=== PATIENT | female | born 1935 | race Caucasian/White ===

== ENCOUNTER → 2016-08-22 | Outpatient (CLI) | payer MEDICARE ==
[~2016-08-22] MED LIST: AC325T PO; ALPR.5T; ALPR0.2550 PO; AMOX-355 PO; APIX2.5T; ASPI-480 PO; ASPI-86 PO; BIMA2.5D4 OS; BRIM5DRO OS; CALC-80 PO; CALC600T; CLD600T PO; DABI75CA3 PO; DENO60DI SQ; DICY10CA12 PO; DIGO0.25 PO; DIGO125T PO; DILT120C85 PO; DILT180C PO; DLT90CCR PO; LEVO100T46 PO; LEVO75TA58 PO; LISI1TAB10; LISI1TAB10 PO; LISI40TA PO; LOPE2CAP PO; LSNP10T PO; LVT.05T PO; MAGN400C PO; METH454P PO; MULT-608 PO; NF-METANX PO; NITR-65 PO; OFLO5DRO2 OD; OMEP20CA6 PO; PNT40TEC PO; POLY17PO23 PO; POTA99TA7 PO; PRED5DRO2I OD; PROBIOTIC1 EACH PO; RT-ALBUTEROL SULF 2.5 MG/3 ML PRE-MIX VIAL INH ONE; SOLI10TA4 PO; TIMO1DRO4 OS; WARF5TAB PO; WRF2T PO; flagyl
--- OUTSIDE RECORDS SUMMARY | 2016-08-22 12:06 | XMS REPORT | Continuity of Care Document ---
Author Author [facility] Organization [facility] Address Unknown Phone Unavailable Care Team Providers Care Automatic Door Mechanic Name Role Phone Wally Bahena PCP [phone] Source Comments Some departments are not documenting in the electronic medical record. If you do not see the information that you expected, contact Release of Information in the Health Information Management department at [phone] for further assistance in locating additional records.[facility] Active Allergies and Adverse Reactions Allergen Noted Date Severity Reactions Comments Neomycin 10/30/2015 Medium HIVES Nystatin 10/30/2015 Medium HIVES Current Medications Prescription Sig. Disp. Refills Start End Date Status Date ALPRAZolam (XANAX) 0.25 Take 0.25 mg by mouth at Active mg tablet bedtime as needed. amLODIPine (NORVASC) 5 mg Take 5 mg by mouth daily. Active tablet BRIMONIDINE Place into or around Active TARTRATE/TIMOLOL eye(s). (COMBIGAN OP) sucralfate (CARAFATE) 1 Take 1 g by mouth every 6 Active gram tablet hours. digoxin (LANOXIN) 125 mcg Take 125 mcg by mouth Active tablet daily. apixaban (ELIQUIS) 5 mg Take 5 mg by mouth twice Active tab tablet daily. estrogens, conjugated Take 0.625 mg by mouth Active (PREMARIN) 0.625 mg daily. tablet LEVOTHYROXINE SODIUM Take 88 mcg by mouth. Active (LEVOTHYROXINE PO) ESCITALOPRAM OXALATE Take 5 mg by mouth. Active (LEXAPRO PO) lisinopril (PRINIVIL; Take 20 mg by mouth Active ZESTRIL) 20 mg tablet daily. loteprednol(+) (LOTEMAX) 1 Drop four times daily. Active 0.5 % ophthalmic suspension metoprolol (LOPRESSOR) 50 Take 50 mg by mouth twice Active mg tablet daily. pantoprazole DR Take 40 mg by mouth Active (PROTONIX) 40 mg tablet daily. pramipexole (MIRAPEX) Take 0.125 mg by mouth Active 0.125 mg tablet three times daily. solifenacin(+) (VESICARE) Take 10 mg by mouth Active 10 mg tablet daily. [id number] Take by mouth. Active (BEANO PO) LACTOSE-REDUCED FOOD Take by mouth. Active (ENSURE ACTIVE PROTEIN-MUSCLE PO) other medication 1 Dose. Indications: 2 Active tabs before meals polyethylene glycol 3350 Take 17 g by mouth daily. Active (GLYCOLAX; MIRALAX) 17 gram/dose powder vitamins, multi stress Take 1 Tab by mouth Active formula (STRESS 600) tab daily. FLAXSEED OIL (OMEGA 3 PO) Take by mouth twice Active daily. Lactobacillus rhamnosus Take by mouth twice Active GG (LACTOBACILLUS daily with meals. RHAMNOSUS (GG)) 15 billion cell cpSP cholecalciferol (VITAMIN Take 1,000 Units by mouth Active D-3) 1,000 units tablet daily. FEXOFENADINE HCL (FLAKITO Take by mouth. Active PO) GUAIFENESIN (MUCINEX PO) Take by mouth. Active ciprofloxacin (CIPRO) 500 Take 1 Tab by mouth twice 2 Tab 0 08/19/19 Active mg tablet daily. 17 ciprofloxacin HCl (CIPRO) Take 1 Tab by mouth twice 2 Tab 0 02/12/20 08/19/19 Discontin 500 mg tablet daily. 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 Avalos ([facility]) 07/25 for low grade Ta dz found on workup for gross hematuria Most Recent Encounters Date Type Specialty Providers Description 08/19/2016 Procedure visit Urology Robert Longoria, Ureteral cancer, left MD (Primary Dx) Social History Tobacco Use Types Packs/Day Years Used Date Never Smoker Alcohol Use Drinks/Week oz/Week Comments No 0 Standard 0.0 drinks or equivalent Last Filed Vital Signs Vital Sign Reading Time Taken Blood Pressure 119/59 08/19/2016 1:11 PM PARTS ADMINISTRATOR Pulse 82 08/19/2016 1:11 PM PARTS ADMINISTRATOR Temperature - - Respiratory Rate - - Height 1.549 m (5' 1") 08/19/2016 1:11 PM PARTS ADMINISTRATOR Weight 52.073 kg (114 lb 12.8 08/19/2016 1:11 PM PARTS ADMINISTRATOR oz) Body Mass Index 21.7 08/19/2016 1:11 PM PARTS ADMINISTRATOR Oxygen Saturation - - Plan of Care Date Type Specialty Providers Description 02/03/2017 Appointment Urology Robert Longoria MD [address] [facility] [address] [place] [address] [phone] (Fax) Health Maintenance Due Date Last Done Comments Physical (Comprehensive) 01/06/1942 Exam Pertussis Vaccine 01[birth year]06/1946 Tetanus Vaccine 1950 Shingles Vaccine 1993 Osteoporosis Screening 1998 Prevnar/Pneumovax (#1) 1998 Influenza Vaccine 03/10/2016 Procedures from Last 3 Months Procedure Name Priority Date/Time Associated Diagnosis Comments VT CYSTOURETHROSCOPY Routine 08/21/2016 Ureteral cancer, left Results for this 6:56 PM PARTS ADMINISTRATOR procedure are in the results section. Results from Last 3 Months CYSTOSCOPY (08/21/2016 6:56 PM) Narrative Robert Longoria MD 08/21/20166:56 PM Date : 08/21/2016 Surgeon: Robert Longoria MD, 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 The patient was patient was placed in the lithotomy position. Two percent lidocaine jelly was administered into the urethral for local anesthesia. The genital area was prepped and draped in the normal sterile fashion. A flexible cystoscope was advanced into the patient's urethra and then into the bladder. The bladder was systematically examined and visualized in its entirety. The right ureteral orifice was surgically absent the left was normal in appearnce and location. No evidence of any tumors was seen. The scope was retroflexed and the anterior bladder and bladder neck inspected. Again, no evidence of any tumors was seen. The scope was then removed. The patient tolerated the procedure well. She was given antibiotics to cover the instrumentation. She was discharged from the clinic in stable condition.
--- NOTE | 2016-08-22 13:26 | Diagnostic Imaging Report ---
PROCEDURE: CT chest without contrast. TECHNIQUE: Multiple contiguous axial images were obtained through the chest without the use of intravenous contrast. INDICATION: Shortness of air, history of hypertension. CORRELATION STUDY: 11/30/2011 FINDINGS: There is asymmetric nodular density about the left breast. Mildly prominent but nonpathologic enlarged left axillary/retropectoral lymph node present. There are a few mildly prominent but nonpathologic enlarged scattered mediastinal lymph nodes. Calcified left hilar lymph nodes. Thoracic aortic contour unremarkable. Heart size normal. EG junction shows a very small hiatal hernia. Lung lopez again demonstrate a densely calcified granuloma in the lateral aspect of the left upper lobe. No infiltrate. 3 mm nodule in the right lower lobe just posterior to the fissure plane appearing stable. Visualized portion of the upper abdomen demonstrates calcified granuloma of the left lobe of the liver. Small low density area of the right lobe of the liver is stable. There is markedly dense calcification of the proximal abdominal aorta including its major branches. There is calcification about the left adrenal gland along its lateral limb. This appears changed from prior study, could be reflective of interval hemorrhage or infection. Kyphoplasty changes at L1. IMPRESSION: 1. Negative for acute findings of the chest. 2. Stable calcified granuloma of the left upper lobe with a noncalcified nodule of the right lower lobe. Given its relative stability of nearly five year timeframe, it favors benign process. Additional findings of granulomatous disease. 3. Slight nodularity suggested about the left breast parenchymal tissue. This may be normal variation. Nodule would be difficult to exclude by CT findings. Clinical correlation is recommended. It does appear that the patient had a recent relatively benign mammogram in May 2016. Dictated by: Dictated on workstation # [id number]
== END ==
LOC: RAD 12:02
PROVIDERS: ATTEND Internal Medicine Critical Care Medicine
DX: R06.00 Dyspnea, unspecified (principal); I10 Essential (primary) hypertension; I65.23 Occlusion and stenosis of bilateral carotid arteries; R00.1 Bradycardia, unspecified; I48.1 Persistent atrial fibrillation
CPT/HCPCS: 71250; 94060; 94640; 94726; 94729

== ENCOUNTER → 2016-09-26 | Outpatient (CLI) | payer MEDICARE ==
[~2016-09-26] MED LIST changes: -RT-ALBUTEROL SULF 2.5 MG/3 ML PRE-MIX VIAL INH ONE
--- OUTSIDE RECORDS SUMMARY | 2016-09-26 10:46 | XMS REPORT | Continuity of Care Document ---
Author Author [facility] Organization [facility] Address Unknown Phone Unavailable Care Team Providers Care Coal Wheeler Name Role Phone Wally Bahena PCP [phone] Source Comments Some departments are not documenting in the electronic medical record. If you do not see the information that you expected, contact Release of Information in the Health Information Management department at [phone] for further assistance in locating additional records.[facility] Active Allergies and Adverse Reactions Allergen Noted [...] by mouth Active 10 mg tablet daily. [id number] Take by mouth. Active (BEANO PO) LACTOSE-REDUCED [...] 0 08/19/19 Active mg tablet daily. 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 Avalos ([facility]) 07/25 for low grade Ta dz found on workup for gross hematuria Most Recent Encounters Date Type Specialty Providers Description 08/19/2016 Procedure visit Urology Robert Longoria, Ureteral cancer, left (Primary Dx) Social History Tobacco Use Types Packs/Day Years Used Date Never Smoker Alcohol Use Drinks/Week oz/Week Comments No 0 Standard 0.0 drinks or equivalent Last Filed Vital Signs Vital Sign Reading Time Taken Blood Pressure 119/59 08/19/2016 1:11 PM ED CASE MANAGER Pulse 82 08/19/2016 1:11 PM ED CASE MANAGER Temperature - - Respiratory Rate - - Height 1.549 m (5' 1") 08/19/2016 1:11 PM ED CASE MANAGER Weight 52.073 kg (114 lb 12.8 08/19/2016 1:11 PM ED CASE MANAGER oz) Body Mass Index 21.7 08/19/2016 1:11 PM ED CASE MANAGER Oxygen Saturation - - Plan of Care Date Type Specialty Providers Description 02/03/2017 Appointment Urology Robert Longoria MD [address] [facility] [address] [place] [address] [phone] (Fax) Health Maintenance Due Date Last Done Comments Physical (Comprehensive) 01/06/1942 Exam Pertussis Vaccine 01/06/1944 Tetanus Vaccine 1950 Shingles Vaccine 1993 Osteoporosis Screening 1998 Prevnar/Pneumovax (#1) 1998 Influenza Vaccine 03/10/2016 Procedures from Last 3 Months Procedure Name Priority Date/Time Associated Diagnosis Comments AL CYSTOURETHROSCOPY Routine 08/21/2016 Ureteral cancer, left Results for this 6:56 PM ED CASE MANAGER procedure are in the results section. Results from Last 3 Months CYSTOSCOPY (08/21/2016 6:56 PM) Narrative Robert Longoria MD 08/21/20166:56 PM Date : 08/21/2016 Surgeon: Robert Longoria MD, FACS Preoperative Diagnosis: right ureteral cancer Postoperative Diagnosis: [...]
[2016-09-26 11:30] LABS: ALBUMIN 3.8 G/DL (3.2-4.5); BILIRUBIN,DIRECT 0.3 MG/DL (0.0-0.3); BILIRUBIN,INDIRECT 0.5 MG/DL; BILIRUBIN,TOTAL 0.8 MG/DL (0.1-1.0); TOTAL PROTEIN 6.7 G/DL (6.4-8.2)
== END ==
LOC: LAB 10:42
PROVIDERS: ATTEND Physician Assistant
DX: E78.2 Mixed hyperlipidemia (principal)
CPT/HCPCS: 36415; 80061; 80076

== ENCOUNTER → 2016-10-10 | Outpatient (CLI) | payer MEDICARE ==
[~2016-10-10] VITALS: Ht 154.9 cm; Wt 44.3 kg
[~2016-10-10] MED LIST changes: +DENOSUMAB 60 MG/1 ML (PROLIA) SQ ONE
[2016-10-10 13:30] VITALS: BP 124/57
== END ==
LOC: SDC 12:58
PROVIDERS: ATTEND Nurse Practitioner Family
DX: M81.0 Age-related osteoporosis without current pathological fracture (principal)
CPT/HCPCS: 96372

== ENCOUNTER 2016-10-24 18:38 | Emergency (ER) | payer OTHER, MEDICARE ==
[~2016-10-24] VITALS: Ht 154.9 cm; Wt 50.8 kg
[~2016-10-24 18:38] MED LIST changes: -AMOX-355 PO; -APIX2.5T; -DENOSUMAB 60 MG/1 ML (PROLIA) SQ ONE
[2016-10-24] MEDS ORDERED: APIX2.5T (18:51)
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
[2016-10-24 19:00] LABS: BASOPHILS % (AUTO) 0 % (0-10); EOSINOPHILS # (AUTO) 0.2 10^3/uL (0.0-0.3); EOSINOPHILS % (AUTO) 2 % (0-10); LYMPHOCYTES # (AUTO) 1.8 X 10^3 (1.0-4.0); LYMPHOCYTES % (AUTO) 23 % (12-44); MEAN CORPUSCULAR HEMOGLOBIN 31 PG (25-34); MEAN CORPUSCULAR HGB CONC 34 G/DL (32-36); MEAN CORPUSCULAR VOLUME 90 FL (80-99); MEAN PLATELET VOLUME 10.5 FL (7.4-10.4); MONOCYTES # (AUTO) 0.8 X 10^3 (0.0-1.0); MONOCYTES % (AUTO) 10 % (0-12); NEUTROPHILS # (AUTO) 5.2 X 10^3 (1.8-7.8); NEUTROPHILS % (AUTO) 65 % (42-75); PLATELET COUNT 210 10^3/uL (130-400); RED BLOOD COUNT 4.15 10^6/uL (4.35-5.85); RED CELL DISTRIBUTION WIDTH 14.1 % (10.0-14.5)
[2016-10-24 19:05] LABS: CHLORIDE 102 MMOL/L (98-107); POTASSIUM 4.6 MMOL/L (3.6-5.0); SODIUM 134 MMOL/L (135-145)
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
[2016-10-24 19:30] LABS: ALANINE AMINOTRANSFERASE 24 U/L (0-55); ANION GAP 14 MMOL/L (5-14); ASPARTATE AMINO TRANSFERASE 30 U/L (5-34); BILIRUBIN,TOTAL 0.5 MG/DL (0.1-1.0); BUN/CREATININE RATIO 18; CALCIUM 9.1 MG/DL (8.5-10.1); CARBON DIOXIDE 18 MMOL/L (21-32); GFR ESTIMATED 53; GLUCOSE 170 MG/DL (70-105); TOTAL PROTEIN 7.4 G/DL (6.4-8.2)
[2016-10-24 19:31] LABS: BLOOD UREA NITROGEN 18 MG/DL (7-18)
[2016-10-24 19:36] LABS: TROPONIN I < 0.30 NG/ML (<0.30)
[2016-10-24] MEDS ORDERED: CATHETER FLUSH 10 ML SYR IV PRN (19:45)
[2016-10-24] MEDS ORDERED: IOHEXOL 350 MG/ML 100 ML (OMNIPAQUE 350) VIAL IV ONE (19:45)
[2016-10-24] MEDS ORDERED: NS 100 ML (IVPB) BAG IV ONE (19:45)
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
[2016-10-24] MEDS ORDERED: NS IV 500 ML 500 ML IV SCH (20:30)
[2016-10-24] MEDS ORDERED: diphenhydrAMINE 50 MG/ML INJ (BENADRYL) INJ ONE (20:45)
[2016-10-24] MEDS ORDERED: AMOX-355 PO (21:13)
[2016-10-24] MEDS ORDERED: AUGMENTIN 500 MG TAB (AMOXICILLIN/CLAVULANATE) PO SCH (21:30)
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
[2016-10-24 22:13] VITALS: BP 146/88
== END 2016-10-24 22:13 | disposition home or self-care (01) ==
LOC: EDUNIT# 18:38 → ER 18:39
DX: S51.811A Laceration without foreign body of right forearm, initial encounter (principal); S29.9XXA Unspecified injury of thorax, initial encounter; S09.92XA Unspecified injury of nose, initial encounter; K57.30 Diverticulosis of large intestine without perforation or abscess without bleeding; J44.9 Chronic obstructive pulmonary disease, unspecified; I51.7 Cardiomegaly; Z79.01 Long term (current) use of anticoagulants; Z79.82 Long term (current) use of aspirin; Z79.899 Other long term (current) drug therapy; W22.11XA Striking against or struck by driver side automobile airbag, initial encounter; V43.52XA Car driver injured in collision with other type car in traffic accident, initial encounter; Y92.414 Local residential or business street as the place of occurrence of the external cause; Y99.8 Other external cause status
CPT/HCPCS: 36415; 70450; 71010; 71260; 72125; 73090; 74177; 80053; 84484; 85025; 93005; 96360; 96372

== ENCOUNTER 2016-11-04 12:44 | Emergency (ER) | payer OTHER, MEDICARE ==
[~2016-11-04] VITALS: Ht 162.6 cm; Wt 54.4 kg
[~2016-11-04 12:44] MED LIST changes: +AMOX-355 PO; +APIX2.5T
[2016-11-04 13:34] VITALS: BP 128/70
== END 2016-11-04 13:34 | disposition home or self-care (01) ==
LOC: EDUNIT# 12:44 → ER 12:47
DX: S51.812D Laceration without foreign body of left forearm, subsequent encounter (principal)

== ENCOUNTER → 2016-11-08 | Outpatient (CLI) | payer MEDICARE ==
--- NOTE | 2016-11-08 15:41 | Diagnostic Imaging Report ---
PROCEDURE: US Thyroid. TECHNIQUE: Multiple real-time grayscale images were obtained of the thyroid in various projections. Indication: Followup hypothyroidism. Comparison: 07/22/2011. Discussion: Atrophic appearing heterogenous thyroid gland is not significantly changed in overall appearance. The right thyroid measures 2.9 x 1.5 x 1.3 cm. Left thyroid measures 2.4 x 1.0 x 0.7 cm. No discrete nodule identified. No abnormal adjacent lymph nodes identified. Impression: 1. Atrophied heterogenous thyroid gland, stable. Dictated by: Dictated on workstation # [id number]
== END ==
LOC: RAD 15:05
PROVIDERS: ATTEND Family Medicine
DX: E03.9 Hypothyroidism, unspecified (principal)
CPT/HCPCS: 76536

== ENCOUNTER 2017-03-18 13:27 | Emergency (ER) | payer MEDICARE ==
[~2017-03-18] VITALS: Ht 154.9 cm; Wt 47.6 kg
--- OUTSIDE RECORDS SUMMARY | 2017-03-18 13:33 | XMS REPORT | Clinical Summary ---
Author Author [facility] Organization [facility] Address Unknown Phone Unavailable Care Team Providers Care Standard Machine Stitcher Name Role Phone PCP Unavailable Source Comments Some departments are not documenting in the electronic medical record. If you do not see the information that you expected, contact Release of Information in the Health Information Management department at [phone] for further assistance in locating additional records.[facility] Allergies Active Allergy Reactions Severity Noted Date Comments Neomycin HIVES Medium 10/30/2015 Nystatin HIVES Medium 10/30/2015 Current Medications Prescription Sig. Disp. Refills Start [...] mouth Active (PROTONIX) 40 mg tablet daily. solifenacin(+) (VESICARE) Take 10 mg by mouth Active 10 mg tablet daily. [id number] Take by mouth. Active (BEANO PO) LACTOSE-REDUCED FOOD Take by mouth. Active (ENSURE ACTIVE PROTEIN-MUSCLE PO) other 1 Dose. Indications: 2 Active medicationIndications: 2 tabs before meals tabs before meals polyethylene glycol 3350 Take [...] Overview: S/p left nephroureterectomy by Dr. 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 for gross hematuria Encounters Date Type Specialty Care Team Description 02/10/2017 Procedure visit Urology Robert Longoria, Ureteral cancer, unspecified laterality (Primary Dx) from Last 3 Months Family History Medical History Relation Name Comments Cancer Brother Cancer Father Heart Attack Father Heart Disease Father Cancer Mother Brain Tumor Sister Cancer Sister Relation Name Status Comments Brother Father Mother Sister Social History Tobacco Use Types Packs/Day Years Used Date Never Smoker Alcohol Use Drinks/Week oz/Week Comments No 0 Standard 0.0 drinks or equivalent Sex Assigned at Date Recorded Not on file Last Filed Vital Signs Vital Sign Reading Time Taken Blood Pressure 131/66 02/10/2017 4:08 PM CDT Pulse 85 02/10/2017 4:08 PM CDT Temperature - - Respiratory Rate - - Oxygen Saturation - - Inhaled Oxygen - - Concentration Weight 49.4 kg (109 lb) 02/10/2017 4:08 PM CDT Height 154.9 cm (5' 1") 02/10/2017 4:08 PM CDT Body Mass Index 20.6 02/10/2017 4:08 PM CDT Plan of Treatment Health Maintenance Due Date Last Done Comments PHYSICAL (COMPREHENSIVE) 01/06/1940 EXAM PERTUSSIS VACCINE 01/06/1944 TETANUS VACCINE 1950 SHINGLES VACCINE 1993 OSTEOPOROSIS SCREENING 1998 PREVNAR/PNEUMOVAX (#1) 1998 INFLUENZA VACCINE 03/10/2017 Procedures Procedure Name Priority Date/Time Associated Diagnosis Comments [place] CYSTOURETHROSCOPY Routine 02/12/2017 Ureteral cancer, Results for this 10:45 AM CDT unspecified laterality procedure are in the results section. 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 No evidence of any tumors was seen. The scope was retroflexed and the anterior bladder and bladder neck inspected. Again, no evidence of any tumors was seen. The scope was then removed. The patient tolerated the procedure well. She was given antibiotics to cover the instrumentation. She was discharged from the clinic in stable condition. from Last 3 Months
--- OUTSIDE RECORDS SUMMARY | 2017-03-18 13:33 | XMS REPORT | Encounter Summary ---
Author Author [facility] Organization [facility] Address Unknown Phone Unavailable Care Team Providers Care Kiln Furniture Saw Tender Name Role Phone PCP Unavailable Reason for Visit * Reason Comments Ureteral cancer * Outpatient Surgery (Routine) Status Reason Specialty Diagnoses / Referred By Referred To Procedures Contact Contact No Auth Needed Urology Diagnoses Swati Longoria, Malignant MD Robert Galvin MD neoplasm of left [address] ([address]) [address] [place] [address] [place] [address] [place] [address] rocedures [id number] Phone: [place] CYSTOURETHROSCOP [phone] Y Fax: PROCEDURE - 15 Encounter Details Date Type Department Care Team Description 02/10/2017 Procedure visit [facility] Robert Longoria , Ureteral cancer, Physicians - Urology MD unspecified laterality [address] (Primary Dx) [address] [place] [address] [place] [address] [place] [phone] [id number] [phone] Social History Tobacco Use Types Packs/Day Years Used Date Never Smoker Alcohol Use Drinks/Week oz/Week Comments No 0 Standard 0.0 drinks or equivalent Sex Assigned at Date Recorded Not on file as of this encounter Last Filed Vital Signs Vital Sign Reading [...] Mass Index 20.6 02/10/2017 4:08 PM CDT in this encounter Progress Notes * Robert Longoria MD - 02/10/2017 3:15 PM CDT Formatting of this note may be different from the original. Date of Service: 02/10/2017 Subjective: Elli Mark is a 82 y.o. female. 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 Here for a follow up cysto. She has not had any recurrences or disease in the bladder. Review of Systems Constitutional: Negative. All other systems reviewed and are negative. Objective: [id number] (BEANO PO) Take by mouth. ALPRAZolam (XANAX) 0.25 mg tablet Take 0.25 mg by mouth at bedtime as needed. amLODIPine (NORVASC) 5 mg tablet Take 5 mg by mouth daily. apixaban (ELIQUIS) 5 mg tab tablet Take 5 mg by mouth twice daily. BRIMONIDINE TARTRATE/TIMOLOL (COMBIGAN OP) Place into or around eye(s). cholecalciferol (VITAMIN D-3) 1,000 units tablet Take 1,000 Units by mouth daily. ciprofloxacin (CIPRO) 500 mg tablet Take 1 Tab by mouth twice daily. digoxin (LANOXIN) 125 mcg tablet Take 125 mcg by mouth daily. ESCITALOPRAM OXALATE (LEXAPRO PO) Take 5 mg by mouth. estrogens, conjugated (PREMARIN) 0.625 mg tablet Take 0.625 mg by mouth daily. FEXOFENADINE HCL (FLAKITO PO) Take by mouth. FLAXSEED OIL (OMEGA 3 PO) Take by mouth twice daily. GUAIFENESIN (MUCINEX PO) Take by mouth. Lactobacillus rhamnosus GG (LACTOBACILLUS RHAMNOSUS (GG)) 15 billion cell cpSP Take by mouth twice daily with meals. LACTOSE-REDUCED FOOD (ENSURE ACTIVE PROTEIN-MUSCLE PO) Take by mouth. LEVOTHYROXINE SODIUM (LEVOTHYROXINE PO) Take 88 mcg by mouth. lisinopril (PRINIVIL; ZESTRIL) 20 mg tablet Take 20 mg by mouth daily. loteprednol(+) (LOTEMAX) 0.5 % ophthalmic suspension 1 Drop four times daily. metoprolol (LOPRESSOR) 50 mg tablet Take 50 mg by mouth twice daily. other medication 1 Dose. Indications: 2 tabs before meals pantoprazole DR (PROTONIX) 40 mg tablet Take 40 mg by mouth daily. polyethylene glycol 3350 (GLYCOLAX; MIRALAX) 17 gram/dose powder Take 17 g by mouth daily. solifenacin(+) (VESICARE) 10 mg tablet Take 10 mg by mouth daily. sucralfate (CARAFATE) 1 gram tablet Take 1 g by mouth every 6 hours. vitamins, multi stress formula (STRESS 600) tab Take 1 Tab by mouth daily. Vitals: 02/10/17 1608 BP: 131/66 Pulse: 85 Weight: 49.4 kg (109 lb) Height: 154.9 cm (61") Body mass index is 20.6 kg/(m^2). Physical Exam Constitutional: She appears well-developed and well-nourished. No distress. Genitourinary: Vagina normal. Skin: She is not diaphoretic. Cysto negative Assessment and Plan: 1. Follow up 6 months for a repeat cysto. in this encounter Plan of Treatment Name Priority Associated Diagnoses Order Schedule CYTOLOGY URINES Routine Ureteral cancer, Ordered: 02/10/2017 unspecified laterality as of this encounter Procedures Procedure Name Priority Date/Time Associated Diagnosis Comments [place] CYSTOURETHROSCOPY Routine 02/12/2017 Ureteral cancer, Results for this 10:45 AM CDT unspecified laterality procedure are in the results section. in this encounter Results * CYSTOSCOPY (02/12/2017 10:45 AM) Specimen Performing Laboratory IN CLINIC Narrative Robert Longoria MD 02/12/2017 10:45 AM Date : 02/12/2017 Surgeon: Robert Longoria MD, [facility] Preoperative Diagnosis: right renal pelvic tumor Postoperative [...] discharged from the clinic in stable condition. in this encounter Visit Diagnoses Diagnosis Ureteral cancer, unspecified laterality - Primary in this encounter
--- NOTE | 2017-03-18 14:13 | ED Abdominal Pain ---
General Chief Complaint: Abdominal/GI Problems Stated Complaint: ABD PAIN Nursing Triage Note: PT AMBULATORY TO ROOM C/O UPPER ABD PAIN ONSET THIS 1030 MORNING. STATES SHE WAS PULLING ON A BOX WHEN ABD PAIN STARTED. Sepsis Screen: No Definite Risk Source of Information: Patient Exam Limitations: No Limitations History of Present Illness Time Seen By Provider: 14:09 Initial Comments 82-year-old female patient presents to the emergency department with complaints of upper abdominal pain beginning at 1030 today. Reports she was planning on a box when the pain began. Denies nausea, vomiting, diarrhea, shortness of air, chest pain, hematemesis. Pain worse with movement. Location Injury Occurred: home Timing/Duration: Constant, Other (1030 this AM) Severity/Quality: Aching, Other (spasm with movement) Location: [place], Other (rt sided abdominal pain.) Radiation: No Radiation Activities at Onset: Other (pulling on a box) Modifying Factors: Worsens With Movement Allergies and Home Medications Allergies Coded Allergies: Bacitracin Zinc (Verified Allergy, Unknown, 10/06/15) bacitracin (Verified Allergy, Unknown, 10/06/15) benzalkonium chloride (Verified Allergy, Unknown, 10/06/15) gramicidin D (Verified Allergy, Unknown, 10/06/15) hydrocortisone (Verified Allergy, Unknown, 10/06/15) lidocaine (Verified Allergy, Unknown, 10/06/15) meclizine (Verified Allergy, Unknown, 10/06/15) neomycin (Verified Allergy, Unknown, 10/06/15) neomycin sulfate (Verified Allergy, Unknown, 10/06/15) nystatin (Verified Allergy, Unknown, 10/06/15) polymyxin B (Verified Allergy, Unknown, 10/06/15) polymyxin B sulfate (Verified Allergy, Unknown, 10/06/15) triamcinolone acetonide (Unverified Allergy, Unknown, 03/13/12) Home Medications Acetaminophen 325 Mg Tablet, 650 MG PO Q4HRS PRN, (Reported) Amoxicillin/Potassium Clav 1 Each Tablet, 1 EACH PO BID, #10 Prescribed by: SUKHWINDER LEMUS on 10/24/16 2113 Apixaban 2.5 Mg Tablet, #170 (Reported) Aspirin 81 Mg Tablet.dr, 81 MG PO DAILY, #0 Prescribed by: TAMMY CRISOSTOMO on 07/21/14 1611 Brimonidine Tartrate/Timolol 5 Ml Drops, 1 DROP OS BID, #0 Prescribed by: TAMMY CRISOSTOMO on 07/21/14 161 Calcium Carbonate/Vitamin D3 1 Tab Tablet, 2 TAB PO Q12H, (Reported) Denosumab 60 Mg/1 Ml Disp.syrin, 60 MG SQ 2X YR, #0 Prescribed by: TAMMY CRISOSTOMO on 07/21/14 161 Dicyclomine Hcl 10 Mg Capsule, 2 TAB PO DAILY, (Reported) TAKE NEEDED FOR ABDOMINAL DISCOMFORT. Digoxin 125 Mcg Tablet, 125 MCG PO DAILY, (Reported) Diltiazem Hcl 120 Mg Capsule.sa, 2 EACH PO DAILY, #0 Prescribed by: TAMMY CRISOSTOMO on 07/21/141610 Levothyroxine Sodium 100 Mcg Tablet, 1 TAB PO HS, #30 Prescribed by: TAMMY CRISOSTOMO on 07/21/141610 Lisinopril 10 Mg Tab, 20 MG PO BID, (Reported) TAKE DAILY AT 9:00 DAILY. Magnesium Oxide 400 Mg Capsule, 400 MG PO DAILY, (Reported) TAKES WITH SUPPER Methylcellulose (With Sugar) 454 Gm Powder, 454 GM PO, (Reported) 1 SCOOP IN THE EVENING Multivitamins 1 Tab Tablet, 1 TAB PO DAILY, (Reported) TAKES WITH SUPPER Omeprazole 20 Mg Capsule.dr, 20 MG PO BID, (Reported) Ondansetron 8 Mg Tab.rapdis, 8 MG PO Q6H PRN for NAUSEA/VOMITING-1ST LINE, #10 Ref 0 Prescribed by: URBAN HODGES on 03/18/17 165 Polyethylene Glycol 17 Gm Pack, 0.5 PKT PO HS, #0 Prescribed by: TAMMY CRISOSTOMO on 07/21/141610 Prednisolone Acetate 5 Ml Btl, 1 DROP OD Q4H, #5 (Reported) Solifenacin Succinate 10 Mg Tablet, 10 MG PO HS PRN, (Reported) TAKES 1/2 TAB IN AM AND 1/2 IN PM Timolol Maleate/Pf 1 Each Droperette, 1 DROP OS DAILY, (Reported) Vitamin B Complex/Folic Ac 1 Ea Tablet, 1 EA PO DAILY, #0 Prescribed by: TAMMY CRISOSTOMO on 07/21/141610 Warfarin Sodium 5 Mg Tablet, 5 MG PO DAILY, #0 Prescribed by: TAMMY CRISOSTOMO on 1/12/15 1611 Review of Systems Constitutional: No chills, No diaphoresis, No dizziness, No fever, No malaise EENTM: No Symptoms Reported Respiratory: Denies Cough, Denies Shortness of Air, Denies SOA With Exertion Cardiovascular: Denies Chest Pain, Denies Lightheadedness, Denies Palpitations , Denies Syncope Gastrointestinal: See HPI, Denies Abdomen Distended, Abdominal Pain, Denies Blood Streaked Stools, Denies Constipated, Denies Diarrhea, Denies Nausea, Denies Poor Appetite, Denies Poor Fluid Intake, Denies Rectal Bleeding, Denies Vomiting Genitourinary: Denies Burning, Denies Frequency, Denies Flank Pain, Denies Hematuria, Denies Pain Musculoskeletal: No back pain, muscle pain, muscle cramps (muscle spasm rt abdomen.), No neck pain Skin: no symptoms reported Psychiatric/Neurological: No Symptoms Reported All Other Systems Reviewed Negative Unless Noted: Yes (Negative excepted noted.) Past [place]-Ulqixw-Tybich Hx Patient Social History Alcohol Use: Denies Use Recreational Drug Use: No Smoking Status: Never a Smoker Recent Foreign Travel: No Contact w/Someone Who Travel: No Recent Infectious Disease Expo: No Recent Hopitalizations: Yes (rotator cuff surgey, 2004, 2008 [place] glaucoma) Physical Abuse: No Sexual Abuse: No Immunizations Up To Date Date of Pneumonia Vaccine: Jul 11, 2014 Date of Influenza Vaccine: Apr 09, 2015 Surgeries History of Surgeries: Yes Respiratory History of Respiratory Disorde: No Cardiovascular History of Cardiac Disorders: Yes Neurological History of Neurological Disord: No Reproductive System Hx Reproductive Disorders: No Sexually Transmitted Disease: No Gastrointestinal History of Gastrointestinal Di: Yes Musculoskeletal History of Musculoskeletal Dis: Yes Endocrine History of Endocrine Disorders: Yes Psychosocial History of Psychiatric Problem: No Suicide Risk Score: 0 Reviewed Nursing Assessment Reviewed/Agree w Nursing PMH: Yes Family Medical History Significant Family History: No Pertinent Family Hx Physical Exam Vital Signs Capillary Refill : Less Than 3 Seconds General Appearance: WD/WN, no apparent distress HEENT: PERRL/EOMI, pharynx normal Neck: non-tender, full range of motion, supple, normal inspection Respiratory: chest non-tender, lungs clear, normal breath sounds, no respiratory distress, no accessory muscle use Cardiovascular: normal peripheral pulses, regular rate, rhythm, no edema, no murmur Peripheral Pulses: 2+ Dorsalis Pedis (R), 2+ Left Dors-Pedis (L), 2+ Radial Pulses (R), 2+ Radial Pulses (L) Gastrointestinal: normal bowel sounds, soft, no organomegaly, no pulsatile mass , No distended, No rebound, tenderness (rt sided abdominal pain noted over the oblique muscles with light palpation. No deep palpation tenderness noted of the abdomen.) Extremities: non-tender, normal inspection, no pedal edema, no calf tenderness , normal capillary refill, pelvis stable Back: normal inspection, no CVA tenderness, no vertebral tenderness Neurologic/Psychiatric: no motor/sensory deficits, alert, normal mood/affect, oriented x 3 Skin: normal color, warm/dry Laceration Repair : Suture Size: 5-0 Progress/Results/Core Measures Results/Orders Lab Results Laboratory Tests Test 03/18/17 14:45 03/18/17 15:10 Range/Units White Blood Count 10.1 4.3-11.0 10^3/uL Red Blood Count 4.17 L 4.35-5.85 10^6/uL Hemoglobin 13.0 11.5-16.0 G/DL Hematocrit 38 35-52 % Mean Corpuscular Volume 91 80-99 FL Mean Corpuscular Hemoglobin 31 25-34 PG Mean Corpuscular Hemoglobin Concent 34 32-36 G/DL Red Cell Distribution Width 13.2 10.0-14.5 % Platelet Count 213 130-400 10^3/uL Mean Platelet Volume 10.2 7.4-10.4 FL Neutrophils (%) (Auto) 73 42-75 % Lymphocytes (%) (Auto) 14 12-44 % Monocytes (%) (Auto) 11 0-12 % Eosinophils (%) (Auto) 2 0-10 % Basophils (%) (Auto) 0 0-10 % Neutrophils # (Auto) 7.4 1.8-7.8 X 10^3 Lymphocytes # (Auto) 1.5 1.0-4.0 X 10^3 Monocytes # (Auto) 1.1 H 0.0-1.0 X 10^3 Eosinophils # (Auto) 0.2 0.0-0.3 10^3/uL Basophils # (Auto) 0.0 0.0-0.1 10^3/uL Sodium Level 129 L 135-145 MMOL/L Potassium Level 4.6 3.6-5.0 MMOL/L Chloride Level 99 98-107 MMOL/L Carbon Dioxide Level 21 21-32 MMOL/L Anion Gap 9 5-14 MMOL/L Blood Urea Nitrogen 24 H 7-18 MG/DL Creatinine 0.91 0.60-1.30 MG/DL Estimat Glomerular Filtration Rate 59 BUN/Creatinine Ratio 26 Glucose Level 79 70-105 MG/DL Calcium Level 8.9 8.5-10.1 MG/DL Total Bilirubin 1.0 0.1-1.0 MG/DL Aspartate Amino Transf (AST/SGOT) 26 5-34 U/L Alanine Aminotransferase (ALT/SGPT) 24 0-55 U/L Alkaline Phosphatase 67 40-136 U/L C-Reactive Protein High Sensitivity 0.16 0.00-0.50 MG/DL Total Protein 7.3 6.4-8.2 GM/DL Albumin 3.9 3.2-4.5 GM/DL Lipase 25 8-78 U/L Urine Color YELLOW Urine Clarity SLIGHTLY CLOUDY Urine pH 6.5 5-9 Urine Specific [place] 1.010 L 1.016-1.022 Urine Protein NEGATIVE NEGATIVE Urine Glucose (UA) NEGATIVE NEGATIVE Urine Ketones NEGATIVE NEGATIVE Urine Nitrite NEGATIVE NEGATIVE Urine Bilirubin NEGATIVE NEGATIVE Urine Urobilinogen NORMAL NORMAL MG/DL Urine Leukocyte Esterase NEGATIVE NEGATIVE Urine RBC (Auto) NEGATIVE NEGATIVE Urine RBC NONE /HPF Urine WBC NONE /HPF Urine Squamous Epithelial Cells 10-25 H /HPF Urine Crystals NONE /LPF Urine Bacteria TRACE /HPF Urine Casts NONE /LPF Urine Mucus NEGATIVE /LPF Urine Culture Indicated NO My Orders Orders - URBAN HODGES Cbc With Automated Diff (03/18/17 14:33) Comprehensive Metabolic Panel (03/18/17 14:33) Hs C Reactive Protein (03/18/17 14:33) Lipase (03/18/17 14:33) Ua Culture If Indicated (03/18/17 14:33) Saline Lock/Iv-Start (03/18/17 14:33) Ct Abdomen/Pelvis W (03/18/17 14:33) Ns Iv 1000 Ml (Sodium Chloride 0.9%) (03/18/17 14:33) Iohexol Injection (Omnipaque 350 Mg/Ml 1 (03/18/17 15:00) Ns (Ivpb) (Sodium Chloride 0.9% Ivpb Bag (03/18/17 15:00) Pharmacy Communication (Pharmacy Communi (03/18/17 14:50) Medications Given in ED Vital Signs/I&O Blood Pressure Mean: 109 Diagnostic Imaging Diagonstic Imaging: CT Plain Films/CT/US/NM/MRI: abdomen, pelvis Comments FINDINGS: Lower chest: The lung bases are clear. No pericardial or pleural effusion. Stable cardiomegaly. Peritoneum: No free intraperitoneal air or fluid. Liver and biliary system: The liver is normal. Reflux of contrast material into the IVC suggests right heart dysfunction. Gallbladder is decompressed. No biliary duct dilatation. Spleen and Pancreas: Spleen is normal. The pancreas enhances normally without mass lesion or peripancreatic inflammatory changes. Adrenals: Bilateral adrenals are normal. tract: Left kidney is surgically absent. Right kidney enhances normally without mass, lesion or obstructive uropathy. Urinary bladder is distended without wall thickening. GI tract: Stomach is decompressed. Surgical changes in the right lower quadrant with potential enterocolonic anastomosis. Distal small bowel loops are fluid-filled. However, there is no evidence of obstruction. No pericolonic inflammatory changes. The appendix is likely surgically absent. Vasculature and Lymph nodes: Normal caliber aorta with moderate atherosclerotic plaquing. No abdominal or pelvic lymphadenopathy. Musculoskeletal: No concerning osseous lesion. IMPRESSION: 1. No bowel obstruction. Surgical changes from probable enterocolonic anastomosis or enteroenteric anastomosis in the right lower quadrant. The distal small bowel loops are fluid-filled but not dilated to indicate bowel obstruction. These findings could represent enteritis in the appropriate setting. 2. Cardiomegaly with suggestion of right heart dysfunction. 3. Left nephrectomy. Dictated by: Dictated on workstation # [id number] Reviewed: Reviewed by Me (radiology report reviewed by me) Departure Communication (Admissions) Progress Notes Laboratory and diagnostic findings discussed with the patient. Patient was noted to have a sodium of 129. Patient was given 1 L normal saline. Patient follow-up with her primary care provider is now patient. Plan for discharge to home. All return precautions were discussed with the patient as described in the discharge instructions of this report. Patient verbalizes understanding and agrees with the treatment plan. Impression Impression: Primary Impression: Abdominal pain Qualified Codes: R10.9 - Unspecified abdominal pain Additional Impression: Hyponatremia Disposition: HOME, SELF-CARE Condition: Improved Departure-Patient Inst. Decision time for Depature: 16:56 Referrals: JUNIOR BAHENA MD (PCP/Family) Primary Care Physician Patient Instructions: Acute Abdomen (Belly Pain), Adult (DC), Hyponatremia (DC) Add. Discharge Instructions: All discharge instructions reviewed with patient and/or family. Voiced understanding. Medications as instructed. Continue usual home medications. Follow-up with Dr. Bahena as an outpatient for recheck this week. Call Monday morning for appointment time. Return to the emergency department for worsened pain, abdominal swelling, fever, vomiting, diarrhea, rectal bleeding, inability to urinate, or any other concerns. Scripts Ondansetron (Ondansetron Odt) 8 Mg Tab.rapdis 8 MG PO Q6H Y for NAUSEA/VOMITING-1ST LINE, #10 TAB 0 Refills Prov: URBAN HODGES 03/18/17 URBAN HODGES Mar 18, 2017 14:13
[2017-03-18] MEDS ORDERED: NS IV 1000 ML 1,000 ML IV ONE (14:33)
[2017-03-18 14:54] LABS: BASOPHILS % (AUTO) 0 % (0-10); EOSINOPHILS # (AUTO) 0.2 10^3/uL (0.0-0.3); EOSINOPHILS % (AUTO) 2 % (0-10); LYMPHOCYTES # (AUTO) 1.5 X 10^3 (1.0-4.0); LYMPHOCYTES % (AUTO) 14 % (12-44); MEAN CORPUSCULAR HEMOGLOBIN 31 PG (25-34); MEAN CORPUSCULAR HGB CONC 34 G/DL (32-36); MEAN CORPUSCULAR VOLUME 91 FL (80-99); MEAN PLATELET VOLUME 10.2 FL (7.4-10.4); MONOCYTES # (AUTO) 1.1 X 10^3 (0.0-1.0); MONOCYTES % (AUTO) 11 % (0-12); NEUTROPHILS # (AUTO) 7.4 X 10^3 (1.8-7.8); NEUTROPHILS % (AUTO) 73 % (42-75); PLATELET COUNT 213 10^3/uL (130-400); RED BLOOD COUNT 4.17 10^6/uL (4.35-5.85); RED CELL DISTRIBUTION WIDTH 13.2 % (10.0-14.5); WHITE BLOOD COUNT 10.1 10^3/uL (4.3-11.0)
[2017-03-18] MEDS ORDERED: NS 100 ML (IVPB) BAG IV ONE (15:00)
[2017-03-18] MEDS ORDERED: IOHEXOL 350 MG/ML 100 ML (OMNIPAQUE 350) VIAL IV ONE (15:00)
[2017-03-18 15:15] LABS: ALBUMIN 3.9 GM/DL (3.2-4.5); CALCIUM 8.9 MG/DL (8.5-10.1); CREATININE SERUM 0.91 MG/DL (0.60-1.30); POTASSIUM 4.6 MMOL/L (3.6-5.0); TOTAL PROTEIN 7.3 GM/DL (6.4-8.2); hs C REACTIVE PROTEIN 0.16 MG/DL (0.00-0.50)
[2017-03-18 15:16] LABS: BILIRUBIN,URINE NEGATIVE (NEGATIVE); KETONES,URINE NEGATIVE (NEGATIVE); LEUKOCYTE ESTERASE ,URINE NEGATIVE (NEGATIVE); NITRITE,URINE NEGATIVE (NEGATIVE); PH,URINE 6.5 (5-9); PROTEIN,URINE NEGATIVE (NEGATIVE); UROBILINOGEN,URINE NORMAL (NORMAL)
--- NOTE | 2017-03-18 16:36 | Diagnostic Imaging Report ---
PROCEDURE: CT abdomen and pelvis with contrast. TECHNIQUE: Multiple contiguous axial images were obtained through the abdomen and pelvis after administration of intravenous contrast. INDICATION: Abdominal discomfort and right-sided tenderness. COMPARISON: CT abdomen and pelvis from 10/24/16. FINDINGS: Lower chest: The lung bases are clear. No pericardial or pleural effusion. Stable cardiomegaly. Peritoneum: No free intraperitoneal air or fluid. Liver and biliary system: The liver is normal. Reflux of contrast material into the IVC suggests right heart dysfunction. Gallbladder is decompressed. No biliary duct dilatation. Spleen and Pancreas: Spleen is normal. The pancreas enhances normally without mass lesion or peripancreatic inflammatory changes. Adrenals: Bilateral adrenals are normal. tract: Left kidney is surgically absent. Right kidney enhances normally without mass, lesion or obstructive uropathy. Urinary bladder is distended without wall thickening. GI tract: Stomach is decompressed. Surgical changes in the right lower quadrant with potential enterocolonic anastomosis. Distal small bowel loops are fluid-filled. However, there is no evidence of obstruction. No pericolonic inflammatory changes. The appendix is likely surgically absent. Vasculature and Lymph nodes: Normal caliber aorta with moderate atherosclerotic plaquing. No abdominal or pelvic lymphadenopathy. Musculoskeletal: No concerning osseous lesion. IMPRESSION: 1. No bowel obstruction. Surgical changes from probable enterocolonic anastomosis or enteroenteric anastomosis in the right lower quadrant. The distal small bowel loops are fluid-filled but not dilated to indicate bowel obstruction. These findings could represent enteritis in the appropriate setting. 2. Cardiomegaly with suggestion of right heart dysfunction. 3. Left nephrectomy. Dictated by: Dictated on workstation # [id number]
[2017-03-18] MEDS ORDERED: ONDA8TAB13 PO (16:57)
[2017-03-18 17:03] VITALS: BP 135/87
== END 2017-03-18 17:03 | disposition home or self-care (01) ==
LOC: EDUNIT# 13:27 → ER 13:29
DX: R10.10 Upper abdominal pain, unspecified (principal); E87.1 Hypo-osmolality and hyponatremia; Z79.82 Long term (current) use of aspirin; Z79.01 Long term (current) use of anticoagulants
CPT/HCPCS: 36415; 74177; 80053; 81000; 83690; 85025; 86141; 96360; 96361

== ENCOUNTER → 2017-04-11 | Outpatient (CLI) | payer MEDICARE ==
[~2017-04-11] VITALS: Ht 154.9 cm; Wt 47.9 kg
[~2017-04-11] MED LIST changes: +DENOSUMAB 60 MG/1 ML (PROLIA) SQ ONE; +ONDA8TAB13 PO
[2017-04-11 13:20] VITALS: BP 108/85
== END ==
LOC: SDC 13:14
PROVIDERS: ATTEND Nurse Practitioner Family
DX: M81.0 Age-related osteoporosis without current pathological fracture (principal)
CPT/HCPCS: 96372

== ENCOUNTER → 2017-06-05 | Outpatient (CLI) | payer MEDICARE ==
[~2017-06-05] MED LIST changes: -DENOSUMAB 60 MG/1 ML (PROLIA) SQ ONE
--- NOTE | 2017-06-07 18:47 | Diagnostic Imaging Report ---
Bilateral screening mammogram 2D views with tomosynthesis The current study was also evaluated with a Computer Aided Detection (CAD) system. Indication: Screening. No current complaints stated on the questionnaire. COMPARISON: 06/01/2016. FINDINGS: The breasts are composed of heterogeneously dense parenchyma which may decrease mammographic sensitivity. Multiple benign appearing vascular calcifications are seen in the breasts. No mass, architectural distortion or suspicious cluster of calcifications seen. Allowing for technique and positional differences, no suspicious change is seen. IMPRESSION: Dense breasts with no definite change. ACR BI-RADS Category 2: Benign findings. Result letter will be mailed to the patient. Note: At least 10% of breast cancer is not imaged by mammography. Dictated on workstation # [id number]
== END ==
LOC: RAD 14:45
PROVIDERS: ATTEND Family Medicine
DX: Z12.31 Encounter for screening mammogram for malignant neoplasm of breast (principal)
CPT/HCPCS: 77067

== ENCOUNTER → 2017-08-16 | Outpatient (CLI) | payer MEDICARE, OTHER | LOC: CARD 10:31 | PROVIDERS: ATTEND Internal Medicine Cardiovascular Disease | DX: I48.1 Persistent atrial fibrillation (principal); R00.1 Bradycardia, unspecified; I65.23 Occlusion and stenosis of bilateral carotid arteries; R06.00 Dyspnea, unspecified; I10 Essential (primary) hypertension | CPT/HCPCS: 93306 ==

== ENCOUNTER → 2017-09-28 | Outpatient (CLI) | payer MEDICARE ==
[2017-09-28 11:40] LABS: ALBUMIN 4.4 GM/DL (3.2-4.5); BILIRUBIN,TOTAL 1.2 MG/DL (0.1-1.0); CREATININE SERUM 0.89 MG/DL (0.60-1.30); POTASSIUM 4.4 MMOL/L (3.6-5.0); TOTAL PROTEIN 7.9 GM/DL (6.4-8.2)
== END ==
LOC: LAB 10:52
PROVIDERS: ATTEND Physician Assistant
DX: I10 Essential (primary) hypertension (principal); I48.91 Unspecified atrial fibrillation; E78.2 Mixed hyperlipidemia
CPT/HCPCS: 36415; 80053; 80061

== ENCOUNTER 2017-11-07 13:02 | Outpatient (RCR) | payer MEDICARE ==
[~2017-11-07] VITALS: Ht 154.9 cm; Wt 47.9 kg
[2017-11-07 13:45] VITALS: BP 145/91
[2017-11-07] MEDS ORDERED: DENOSUMAB 60 MG/1 ML (PROLIA) SQ SCH (13:45)
[2018-02-26] MEDS ORDERED: DOXY100T2 PO (12:31)
== END 2018-05-15 13:56 | disposition home or self-care (01) ==
LOC: SDC 13:02
PROVIDERS: ATTEND Nurse Practitioner Family
DX: M81.0 Age-related osteoporosis without current pathological fracture (principal)
CPT/HCPCS: 96372

== ENCOUNTER 2018-05-15 13:32 | Outpatient (CLI) | payer MEDICARE ==
[~2018-05-15] VITALS: Ht 154.9 cm; Wt 47.9 kg
[~2018-05-15 13:32] MED LIST changes: +DOXY100T2 PO
[2018-05-15] MEDS ORDERED: DENOSUMAB 60 MG/1 ML (PROLIA) SQ SCH (13:44)
[2018-05-15 13:50] VITALS: BP 129/87
== END 2018-05-15 14:06 | disposition home or self-care (01) ==
LOC: SDC 13:32
PROVIDERS: ATTEND Nurse Practitioner Family
DX: M81.0 Age-related osteoporosis without current pathological fracture (principal)
CPT/HCPCS: 96372

== ENCOUNTER → 2018-06-07 | Outpatient (CLI) | payer MEDICARE ==
--- NOTE | 2018-06-07 12:16 | Diagnostic Imaging Report ---
Indication: Routine screening. Comparison is made with prior mammogram from 06/05/2017 and 06/01/2016. 2-D and 3-D bilateral screening mammography was performed with CAD. Both breasts are heterogeneously dense, limiting the sensitivity of mammography. Benign-appearing parenchymal and vascular calcifications are noted bilaterally. The parenchymal pattern appears stable. No mass or malignant appearing microcalcifications are seen. The axillae are unremarkable. IMPRESSION: BI-RADS category 2 No mammographic features suspicious for malignancy are identified. ACR BI-RADS Category 2: Benign findings. Result letter will be mailed to the patient. Note: At least 10% of breast cancer is not imaged by mammography. Dictated by: Dictated on workstation # [id number]
== END ==
LOC: RAD 10:36
PROVIDERS: ATTEND Nurse Practitioner Family
DX: Z12.31 Encounter for screening mammogram for malignant neoplasm of breast (principal)
CPT/HCPCS: 77067

== ENCOUNTER → 2018-06-13 | Outpatient (CLI) | payer MEDICARE ==
[~2018-06-13] MED LIST changes: +IOHEXOL 350 MG/ML 100 ML (OMNIPAQUE 350) VIAL IV ONE; +NS 250 ML (IVPB) BAG IV ONE; +RECEIVED CONTRAST (Hold Metformin) IV SCH
[2018-06-13 12:58] LABS: BUN/CREATININE RATIO 21; CREATININE SERUM 0.86 MG/DL (0.60-1.30); GFR ESTIMATED > 60
--- NOTE | 2018-06-13 14:10 | Diagnostic Imaging Report ---
PROCEDURE: CT neck soft tissue with contrast. TECHNIQUE: Multiple contiguous axial images were obtained through the neck after the administration of contrast. INDICATION: Hoarseness and difficulty breathing. COMPARISON: No prior studies are available for comparison. FINDINGS: The visualized intracranial structures are unremarkable. Posterior nasopharynx and oropharynx are unremarkable. Parapharyngeal fat planes are preserved. The epiglottis and larynx are unremarkable. No thyroid mass is identified. The submandibular and parotid glands are unremarkable. No definite cervical lymphadenopathy is seen. Small lymph nodes in the left supraclavicular region are noted medially. A single lymph node measuring 0.9 x 0.7 cm. No pathologically enlarged nodes are identified. No fluid collections are detected. IMPRESSION: Unremarkable CT soft tissue neck study with contrast. No definite neck mass or lymphadenopathy is identified. Dictated by: Dictated on workstation # [id number]
== END ==
LOC: RAD 11:54
PROVIDERS: ATTEND Otolaryngology Otolaryngology/Facial Plastic Surgery
DX: J31.2 Chronic pharyngitis (principal); R49.0 Dysphonia
CPT/HCPCS: 36415; 70491; 82565; 84520

== ENCOUNTER → 2018-10-17 | Outpatient (CLI) | payer MEDICARE ==
[~2018-10-17] MED LIST changes: -IOHEXOL 350 MG/ML 100 ML (OMNIPAQUE 350) VIAL IV ONE; -NS 250 ML (IVPB) BAG IV ONE; -RECEIVED CONTRAST (Hold Metformin) IV SCH; +RT-ALBUTEROL SULF 2.5 MG/3 ML PRE-MIX VIAL INH ONE; +RT-ALBUTEROL SULF 2.5 MG/3 ML PRE-MIX VIAL ONE
--- NOTE | 2018-10-17 16:49 | Diagnostic Imaging Report ---
PROCEDURE: CT chest without contrast. TECHNIQUE: Multiple contiguous axial images were obtained through the chest without the use of intravenous contrast. Auto Exposure Controls were utilized during the CT exam to meet ALARA standards for radiation dose reduction. INDICATION: Followup lung nodule. COMPARISON: Exam compared with study 10/24/2016. FINDINGS: Benign calcified granuloma in the left upper lobe noted unchanged and incidental. No noncalcified or suspicious chest nodule. Enlargement of the heart is decreased from prior. There is no pleural or pericardial effusion is no pneumothorax. No acute chest wall pathology the aorta is nonaneurysmal. The upper abdomen where visualized appeared nonacute. IMPRESSION: Benign calcified granuloma in the left upper lobe. No suspicious nodule. No acute finding. Dictated by: Dictated on workstation # [id number]
== END ==
LOC: RAD 12:53
PROVIDERS: ATTEND Nurse Practitioner Family
DX: J84.10 Pulmonary fibrosis, unspecified (principal); R91.1 Solitary pulmonary nodule
CPT/HCPCS: 71250; 94060; 94726; 94729

== ENCOUNTER 2018-11-30 13:39 | Outpatient (CLI) | payer MEDICARE ==
[~2018-11-30] VITALS: Ht 154.9 cm; Wt 47.9 kg
[~2018-11-30 13:39] MED LIST changes: -RT-ALBUTEROL SULF 2.5 MG/3 ML PRE-MIX VIAL INH ONE; -RT-ALBUTEROL SULF 2.5 MG/3 ML PRE-MIX VIAL ONE
[2018-11-30] MEDS ORDERED: DENOSUMAB 60 MG/1 ML (PROLIA) SQ SCH (14:15)
[2018-11-30 14:20] VITALS: BP 125/59
== END 2018-11-30 14:20 | disposition home or self-care (01) ==
LOC: SDC 13:39
PROVIDERS: ATTEND Nurse Practitioner Family
DX: M81.0 Age-related osteoporosis without current pathological fracture (principal)
CPT/HCPCS: 96372

== ENCOUNTER 2018-12-10 12:35 | Inpatient (IN) | payer MEDICARE ==
[~2018-12-10] VITALS: Ht 154.9 cm; Wt 49.4 kg
[~2018-12-10 12:35] MED LIST changes: -APIX2.5T; +APIX2.5T PO
[2018-12-10] MEDS ORDERED: CATHETER FLUSH 10 ML SYR IV PRN (13:15)
[2018-12-10 13:18] LABS: HEMOGLOBIN 13.5 G/DL (11.5-16.0); MEAN PLATELET VOLUME 9.8 FL (7.4-10.4); RED CELL DISTRIBUTION WIDTH 12.8 % (10.0-14.5); WHITE BLOOD COUNT 10.4 10^3/uL (4.3-11.0)
[2018-12-10] MEDS: NS IV 1000 ML 1,000 ML IV SCH ×2 (13:25→22:37)
[2018-12-10 13:41] LABS: ALANINE AMINOTRANSFERASE 66 U/L (0-55); ALBUMIN 3.3 GM/DL (3.2-4.5); ALKALINE PHOSPHATASE 67 U/L (40-136); BILIRUBIN,TOTAL 0.5 MG/DL (0.1-1.0); BUN/CREATININE RATIO 22; CALCIUM 8.6 MG/DL (8.5-10.1); CARBON DIOXIDE 20 MMOL/L (21-32); CHLORIDE 93 MMOL/L (98-107); CREATININE SERUM 0.99 MG/DL (0.60-1.30); GFR ESTIMATED 53; GLUCOSE 93 MG/DL (70-105); MAGNESIUM 1.7 MG/DL (1.8-2.4); POTASSIUM 4.7 MMOL/L (3.6-5.0); TOTAL PROTEIN 6.8 GM/DL (6.4-8.2)
[2018-12-10 13:49] LABS: SODIUM 121 MMOL/L (135-145)
[2018-12-10 14:05] VITALS: BP 117/70
--- OUTSIDE RECORDS SUMMARY | 2018-12-10 14:45 | XMS REPORT | Clinical Summary ---
Author Author [facility] Organization [facility] Address Unknown Phone Unavailable Care Team Providers Care Athletic Coordinator Name Role Phone Robert Longoria MD Unavailable Karma Bahena MD PCP Source Comments Some departments are not documenting in the electronic medical record. If you d o not see the information that you expected, contact Release of Information in [facility] [employer] Information Management department at [phone] for further assistan ce in locating additional records.[facility] Allergies Comments Active Allergy Reactions Severity Noted Date Amoxicillin-Pot NAUSEA ONLY Low 12/13/2016 Clavulanate Neomycin HIVES Medium 10/30/2015 Nystatin HIVES Medium 10/30/2015 Medications End Date Status Medication Sig Dispensed Refills Start Date Active ALPRAZolam (XANAX) 0.25 Take 0.25 mg 0 mg tablet by mouth at bedtime as needed. Active BRIMONIDINE Place into 0 TARTRATE/TIMOLOL or around (COMBIGAN OP) eye(s). Active digoxin (LANOXIN) 125 mcg Take 125 mcg 0 tablet by mouth daily. Active apixaban (ELIQUIS) 5 mg Take 5 mg by 0 tab tablet mouth twice daily. Active estrogens, conjugated Take 0.625 mg 0 (PREMARIN) 0.625 mg by mouth tablet daily. Active LEVOTHYROXINE SODIUM Take 88 mcg 0 (LEVOTHYROXINE PO) by mouth. Active ESCITALOPRAM OXALATE Take 5 mg by 0 (LEXAPRO PO) mouth. Active loteprednol(+) (LOTEMAX) 1 Drop four 0 0.5 % ophthalmic times daily. suspension Active metoprolol (LOPRESSOR) 50 Take 50 mg by 0 mg tablet mouth twice daily. Active solifenacin(+) (VESICARE) Take 10 mg by 0 10 mg tablet mouth daily. Active [id number] Take by 0 (BEANO PO) mouth. Active other 1 Dose. 0 medicationIndications: 2 Indications: tabs before meals 2 tabs before meals Active polyethylene glycol 3350 Take 17 g by 0 (GLYCOLAX; MIRALAX) 17 mouth daily. gram/dose powder Active vitamins, multi stress Take 1 Tab by 0 formula (STRESS 600) tab mouth daily. Active FLAXSEED OIL (OMEGA 3 PO) Take by 0 mouth twice daily. Active Lactobacillus rhamnosus Take by 0 GG (LACTOBACILLUS mouth twice RHAMNOSUS (GG)) 15 daily with billion cell cpSP meals. Active cholecalciferol (VITAMIN Take 1,000 0 D-3) 1,000 units tablet Units by mouth daily. Active FEXOFENADINE HCL (FLAKITO Take by 0 PO) mouth. Active GUAIFENESIN (MUCINEX PO) Take by 0 mouth. Active ELIQUIS 2.5 mg tablet TK 1 T PO BID 5 8 Active atorvastatin calcium Take by 0 (LIPITOR PO) mouth. Active guaifenesin/pseudoephedrn Take by 0 e HCl (MUCINEX D PO) mouth. Active pantoprazole sodium Take by 0 (PANTOPRAZOLE PO) mouth. 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 Avalos @ [facility]. 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 L ast Assessment & Plan: Cystoscopy today revealed no evidence of urothelial tumors. Urine cytology -- pending. RTC 6 mo for cysto. Solitary kidney, acquired, right Overview: D/t (L) nephroureterectomy -- 2015. Family History Medical History Relation Name Comments Cancer Brother Cancer Father Heart Attack Father Heart Disease Father Cancer Mother Brain Tumor Sister Cancer Sister Relation Name Status Comments Brother Father Mother Sister Social History Date Tobacco Use Types Packs/Day Years Used Never Smoker Alcohol Use Drinks/Week oz/Week Comments No 0 Standard 0.0 drinks or equivalent Sex Assigned at Date Recorded Not on file Industry Job Start Date Occupation Not on file Not on file Not on file Travel End Travel History Travel Start No recent travel history available. Last Filed Vital Signs Time Taken Vital Sign Reading 09/07/2018 1:03 PM [employer] Blood Pressure 156/92 09/07/2018 1:03 PM [employer] Pulse 107 - Temperature - - Respiratory Rate - - Oxygen Saturation - - Inhaled Oxygen - Concentration 09/07/2018 1:03 PM [employer] Weight 47.6 kg (105 lb) 09/07/2018 1:03 PM [employer] Height 154.9 cm (5' 1") 09/07/2018 1:03 PM [employer] Body Mass Index 19.84 Plan of Treatment Health Maintenance Due Date Last Done Comments PHYSICAL (COMPREHENSIVE) 01/06/1942 EXAM DTAP/TDAP VACCINES (1 - 1951 Tdap) 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 For more information, tito briseno contact: [facility] [address] [place] [address]
--- OUTSIDE RECORDS SUMMARY | 2018-12-10 14:56 | XMS REPORT | CCD ---
Author Author Laura Colin Organization Karma Bahena MD, [facility] Address [address] [place] [address] Phone Care Team Providers Care Cartographic Technician Name Role Phone Karma Bahena PP Unavailable CCM Unavailable Summary Purpose Interface Exchange Insurance Providers Payer name Policy type / Coverage type Covered democrat ID Effective Begin Date Effective End Date WPS Medicare Part B Medicare Part B [id number] 2018 Unknown AARP Medicare Part B [id number] 2018 Unknown Family history Sister Diagnosis Age At Onset brain cancer Unknown Father Diagnosis Age At Onset Heart Attack Unknown Cancer Unknown Mother Diagnosis Age At Onset Cancer Unknown Asthma Unknown Sister Diagnosis Age At Onset Cancer Unknown Brother Diagnosis Age At Onset Cancer Unknown Social History Social History Element Codes Description Effective Dates Marital status Unknown 03/15/2011 Living arrangements Unknown House 03/15/[address]: 153015179 Never smoker 03/15/2011 Has the patient ever used illegal drugs? Unknown Has never used illegal drugs 03/15/2011 Allergies, Adverse Reactions, Alerts Substance Reaction Codes Entered Date Inactivated Date Status BACTINE RxNorm: 013414 03/04/2011 No Inactive Date Active MICONAZOLE RxNorm: 6932 03/04/2011 No Inactive Date Active NEOSPORIN RxNorm: 267620 03/04/2011 No Inactive Date Active NEOMYCIN RxNorm: 7299 03/04/2011 No Inactive Date Active CORTISPORIN RxNorm: 97631 03/04/2011 No Inactive Date Active bactrim RxNorm: 880459 03/13/2012 No Inactive Date Active AUGMENTIN diarrhea RxNorm: 922090 2016 No Inactive Date Active METRONIDAZOLE Unknown 03/04/2011 No Inactive Date Active NYSTATIN Unknown 03/04/2011 No Inactive Date Active PNEUMOCOCCAL VACCINE Unknown 03/04/2011 No Inactive Date Active Past Medical History Illness Codes Condition Status Onset Date Resolved Date Chronic atrial fibrillation ICD-9: 427.31 ICD-10: I48.2 Active 12/25/2013 Unknown Cough ICD-9: 786.2 ICD-10: R05 Active 11/23/2016 Unknown Acute laryngopharyngitis ICD-9: 465.0 ICD-10: J06.0 Active 11/21/2016 Unknown Atrophy of thyroid (acquired) ICD-9: 244.8 ICD-10: E03.4 Active 11/02/2016 Unknown Essential (primary) hypertension ICD-9: 401.1 ICD-10: I10 Active 01/19/2017 Unknown Postmenopausal atrophic vaginitis ICD-9: 627.3 ICD-10: N95.2 Active 10/31/2018 Unknown Pain in left hand ICD-9: 729.5 ICD-10: M79.642 Active 10/09/2018 Unknown Pain in right hand ICD- 9: 729.5 ICD-10: M79.641 Active 10/09/2018 Unknown Raynaud's syndrome without 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 Active 07/26/2018 Unknown Hypothyroidism, unspecified ICD-9: 244.9 ICD-10: E03.9 Active 08/31/2015 Unknown Other allergic rhinitis ICD-9: 477.8 ICD-10: J30.89 Active 10/12/2015 Unknown Pain in right toe(s) ICD- 9: 729.5 ICD-10: M79.674 Active 08/14/2018 Unknown Sebaceous cyst ICD-9: 706.2 ICD-10: L72.3 Active 07/26/2018 Unknown Encounter for screening mammogram for malignant neoplasm of breast ICD-9: V76.12 ICD-10: Z12.31 Active 05/12/2014 Unknown Gastro-esophageal reflux disease without esophagitis ICD-9: 530.81 ICD-10: K21.9 Active 06/04/2018 Unknown Essential (primary) hypertension ICD-9: 401.9 ICD-10: I10 Active 12/25/2013 Unknown Other termite helper (current) drug therapy ICD-9: V58.83 ICD-10: Z79.899 Active 01/31/2018 Unknown Encounter for general adult medical examination with abnormal findings ICD-9: V70.0 ICD-10: Z00.01 Active 01/23/2017 Unknown Allergic rhinitis due to pollen ICD-9: 477.0 ICD-10: J30.1 Active 12/20/2015 Unknown Age-related osteoporosis without current pathological fracture ICD-9: 733.00 ICD-10: M81.0 Active 07/11/2014 Unknown Encounter for immunization ICD-9: V04.81 ICD-10: Z23 Active 04/18/2012 Unknown Localized edema ICD-9: 782.3 ICD-10: R60.0 Active 06/09/2016 Unknown Dysphonia ICD-9: 784.42 ICD-10: R49.0 Active 01/19/2017 Unknown Acute upper respiratory infection, unspecified ICD-9: 465.9 ICD-10: J06.9 Active 12/20/2015 Unknown Laceration without foreign body of right forearm, subsequent encounter ICD-9: V58.89 ICD-10: S51.811D Active 11/08/2016 Unknown Laceration without foreign body of right forearm, initial encounter ICD-9: 881.00 ICD-10: S51.811A Active 10/27/2016 Unknown Abdominal distension (gaseous) ICD-9: 787.3 ICD-10: R14.0 Active 03/22/2015 Unknown Irritable bowel syndrome without diarrhea ICD-9: 564.1 ICD-10: K58.9 Active 01/14/2014 Unknown Pruritus ani ICD-9: 698.0 ICD-10: L29.0 Active 05/24/2016 Unknown First degree hemorrhoids ICD-9: 455.6 ICD-10: K64.0 Active 03/23/2016 Unknown Epidermal cyst ICD-9: 706.2 ICD-10: L72.0 Active 02/01/2016 Unknown Other mcc (current) drug therapy ICD-9: V58.69 ICD-10: Z79.899 Active 03/08/2012 Unknown Acute anal fissure ICD- 9: 565.0 ICD-10: K60.0 Active 01/04/2016 Unknown Impacted cerumen, right ear ICD-9: 389.8 ICD-10: H61.21 Active 10/18/2015 Unknown Urge incontinence ICD-9: 788.31 ICD-10: N39.41 Active 12/25/2013 Unknown Unspecified hemorrhoids ICD-9: 455.6 ICD-10: K64.9 Active 09/14/2015 Unknown 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 ICD-10: C65.2 Active 08/31/2015 Unknown Hematuria, unspecified ICD-9: 599.70 ICD-10: R31.9 Active 05/25/2015 Unknown Other specified noninflammatory disorders of vagina ICD-9: 625.8 ICD-10: N89.8 Active 05/25/2015 Unknown Other urethritis ICD-9: 597.80 ICD-10: N34.2 Active 05/25/2015 Unknown Gout, unspecified ICD-9: 274.9 ICD-10: M10.9 Active 05/20/2015 Unknown Dyspnea, unspecified ICD- 9: 786.09 ICD-10: R06.00 Active 12/25/2013 Unknown Encounter for immunization ICD-9: V03.82 ICD-10: Z23 Active 07/11/2014 Unknown Unspecified atrial fibrillation ICD-9: 427.31 ICD-10: I48.91 Active 12/25/2013 Unknown Cystocele, unspecified ICD-9: 618.01 ICD-10: N81.10 Active 05/08/2012 Unknown Fecal smearing ICD-9: 787.62 ICD-10: R15.1 Active 05/06/2015 Unknown Atrial fibrillation ICD- 9: 427.31 Active 12/25/2013 Unknown Bloating ICD-9: 787.3 Active 03/22/2015 Unknown ENCNTR LONG-ANTICOAG USE ICD-9: V58.61 Active 2012 Unknown Need for pneumococcal vaccine ICD-9: V03.82 Active 07/11/2014 Unknown Osteoarthritis ICD-9: 715.90 Active 07/11/2014 Unknown Osteoporosis ICD-9: 733.00 Active 07/11/2014 Unknown Dysuria ICD-9: 788.1 Active 05/14/2014 Unknown Other screening mammogram ICD-9: V76.12 Active 05/12/2014 Unknown UTI ICD-9: 599.0 Active 05/06/2014 Unknown ALLERGIC RHINITIS ICD-9: 477.9 Active 03/20/2014 Unknown ABDOM PAIN NOS SITE ICD- 9: 789.00 Active 01/29/2014 Unknown Esophageal reflux ICD-9: 530.81 Active 01/29/2014 Unknown DIARRHEA ICD-9: 787.91 Active 01/14/2014 Unknown Irritable bowel ICD-9: 564.1 Active 01/14/2014 Unknown Dyspnea ICD-9: 786.09 Active 12/25/2013 Unknown ESSENTIAL HYPERTENSION ICD-9: 401.9 Active 12/25/2013 Unknown MALAISE AND FATIGUE ICD- 9: 780.79 Active 12/25/2013 Unknown URGE INCONTINENCE ICD-9: 788.31 Active 12/25/2013 Unknown Osteoarthritis Unknown Active 09/12/2013 Unknown Bruising ICD-9: 924.9 Active 08/15/2013 Unknown Dizziness and giddiness ICD-9: 780.4 Active 04/23/2013 Unknown CELLULITIS OF HAND ICD- 9: 682.4 Active 12/11/2012 Unknown Elevated digoxin level ICD-9: 796.0 Active 10/30/2012 Unknown Inflammatory arthritis ICD-9: 714.9 Active 10/30/2012 Unknown URINARY FREQUENCY ICD-9: 788.41 Active 09/13/2012 Unknown Constipation - functional ICD-9: 564.09 Active 07/11/2012 Unknown Cystocele ICD-9: 618.01 Active 05/08/2012 Unknown Rectocele ICD-9: 618.04 Active 05/08/2012 Unknown 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 Active 04/18/2012 Unknown VACCIN FOR INFLUENZA ICD- 9: V04.81 Active 04/18/2012 Unknown Nausea and vomiting ICD- 9: 787.01 Active 03/13/2012 Unknown Encounter for long-term (current) use of other high-risk medications ICD-9: V58.69 Active 03/08/2012 Unknown Vaginal yeast infection ICD-9: 112.1 Active 02/13/2012 Unknown Anticoagulation goal of INR 2 to 3 ICD-9: V58.83 Active 02/01/2012 Unknown EDEMA ICD-9: 782.3 Active 10/03/2011 Unknown IMPACTED CERUMEN ICD-9: 380.4 Active 10/03/2011 Unknown Generalized osteoarthritis ICD-9: 715.09 Active 08/08/2011 Unknown Muscle cramp ICD-9: 729.82 Active 05/09/2011 Unknown Rash ICD-9: 782.1 Active 05/09/2011 Unknown Torticollis ICD-9: 723.5 Active 05/09/2011 Unknown Leg cramps, sleep related ICD-9: 327.52 Active 03/29/2011 Unknown Underweight ICD-9: 783.22 Active 03/29/2011 Unknown Broken radius Unknown Active 03/15/2011 Unknown broken ulna Unknown Active 03/15/2011 Unknown Broken wrist Unknown Active 03/15/2011 Unknown Fracture Unknown Active 03/15/2011 Unknown Gastroesophageal reflux disease Unknown Active 03/15/2011 Unknown Hypertension Unknown Active 03/15/2011 Unknown Hypothryroidism Unknown Active 03/15/2011 Unknown Osteoporosis Unknown Active 03/15/2011 Unknown Loss of weight ICD-9: 783.21 Active 03/15/2011 Unknown Palpitations ICD-9: 785.1 Active 03/15/2011 Unknown Peripheral neuropathy, idiopathic ICD-9: 356.9 Active 03/15/2011 Unknown Problems Condition Codes Effective Dates Condition Status Chronic atrial fibrillation ICD-9: 427.31 ICD-10: I48.2 12/25/2013 Active Cough ICD-9: 786.2 ICD-10: R05 11/23/2016 Active Acute laryngopharyngitis ICD-9: 465.0 ICD-10: J06.0 11/21/2016 Active Atrophy of thyroid (acquired) ICD-9: 244.8 ICD-10: E03.4 11/02/2016 Active Essential (primary) hypertension ICD-9: 401.1 ICD-10: I10 01/19/2017 Active Postmenopausal atrophic vaginitis ICD-9: 627.3 ICD-10: N95.2 10/31/2018 Active Pain in left hand ICD-9: 729.5 ICD-10: M79.642 10/09/2018 Active Pain in right hand ICD- 9: 729.5 ICD-10: M79.641 10/09/2018 Active Raynaud's syndrome without 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 07/26/2018 Active Hypothyroidism, unspecified ICD-9: 244.9 ICD-10: E03.9 08/31/2015 Active Other allergic rhinitis ICD-9: 477.8 ICD-10: J30.89 10/12/2015 Active Pain in right toe(s) ICD- 9: 729.5 ICD-10: M79.674 08/14/2018 Active Sebaceous cyst ICD-9: 706.2 ICD-10: L72.3 07/26/2018 Active Encounter for screening mammogram for malignant neoplasm of breast ICD-9: V76.12 ICD-10: Z12.31 05/12/2014 Active Gastro-esophageal reflux disease without esophagitis ICD-9: 530.81 ICD-10: K21.9 06/04/2018 Active Essential (primary) hypertension ICD-9: 401.9 ICD-10: I10 12/25/2013 Active Other termite helper (current) drug therapy ICD-9: V58.83 ICD-10: Z79.899 01/31/2018 Active Encounter for general adult medical examination with abnormal findings ICD-9: V70.0 ICD-10: Z00.01 01/23/2017 Active Allergic rhinitis due to pollen ICD-9: 477.0 ICD-10: J30.1 12/20/2015 Active Age-related osteoporosis without current pathological fracture ICD-9: 733.00 ICD-10: M81.0 07/11/2014 Active Encounter for immunization ICD-9: V04.81 ICD-10: Z23 04/18/2012 Active Localized edema ICD-9: 782.3 ICD-10: R60.0 06/09/2016 Active Dysphonia ICD-9: 784.42 ICD-10: R49.0 01/19/2017 Active Acute upper respiratory infection, unspecified ICD-9: 465.9 ICD-10: J06.9 12/20/2015 Active Laceration without foreign body of right forearm, subsequent encounter ICD-9: V58.89 ICD-10: S51.811D 11/08/2016 Active Laceration without foreign body of right forearm, initial encounter ICD-9: 881.00 ICD-10: S51.811A 10/27/2016 Active Abdominal distension (gaseous) ICD-9: 787.3 ICD-10: R14.0 03/22/2015 Active Irritable bowel syndrome without diarrhea ICD-9: 564.1 ICD-10: K58.9 01/14/2014 Active Pruritus ani ICD-9: 698.0 ICD-10: L29.0 05/24/2016 Active First degree hemorrhoids ICD-9: 455.6 ICD-10: K64.0 03/23/2016 Active Epidermal cyst ICD-9: 706.2 ICD-10: L72.0 02/01/2016 Active Other mcc (current) drug therapy ICD-9: V58.69 ICD-10: Z79.899 03/08/2012 Active Acute anal fissure ICD- 9: 565.0 ICD-10: K60.0 01/04/2016 Active Impacted cerumen, right ear ICD-9: 389.8 ICD-10: H61.21 10/18/2015 Active Urge incontinence ICD-9: 788.31 ICD-10: N39.41 12/25/2013 Active Unspecified hemorrhoids ICD-9: 455.6 ICD-10: K64.9 09/14/2015 Active 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 ICD-10: C65.2 08/31/2015 Active Hematuria, unspecified ICD-9: 599.70 ICD-10: R31.9 05/25/2015 Active Other specified noninflammatory disorders of vagina ICD-9: 625.8 ICD-10: N89.8 05/25/2015 Active Other urethritis ICD-9: 597.80 ICD-10: N34.2 05/25/2015 Active Gout, unspecified ICD-9: 274.9 ICD-10: M10.9 05/20/2015 Active Dyspnea, unspecified ICD- 9: 786.09 ICD-10: R06.00 12/25/2013 Active Encounter for immunization ICD-9: V03.82 ICD-10: Z23 07/11/2014 Active Unspecified atrial fibrillation ICD-9: 427.31 ICD-10: I48.91 12/25/2013 Active Cystocele, unspecified ICD-9: 618.01 ICD-10: N81.10 05/08/2012 Active Fecal smearing ICD-9: 787.62 ICD-10: R15.1 05/06/2015 Active Atrial fibrillation ICD- 9: 427.31 12/25/2013 Active Bloating ICD-9: 787.3 03/22/2015 Active ENCNTR LONG-ANTICOAG USE ICD-9: V58.61 2012 Active Need for pneumococcal vaccine ICD-9: V03.82 07/11/2014 Active Osteoarthritis ICD-9: 715.90 07/11/2014 Active Osteoporosis ICD-9: 733.00 07/11/2014 Active Dysuria ICD-9: 788.1 05/14/2014 Active Other screening mammogram ICD-9: V76.12 05/12/2014 Active UTI ICD-9: 599.0 05/06/2014 Active ALLERGIC RHINITIS ICD-9: 477.9 03/20/2014 Active ABDOM PAIN NOS SITE ICD- 9: 789.00 01/29/2014 Active Esophageal reflux ICD-9: 530.81 01/29/2014 Active DIARRHEA ICD-9: 787.91 01/14/2014 Active Irritable bowel ICD-9: 564.1 01/14/2014 Active Dyspnea ICD-9: 786.09 12/25/2013 Active ESSENTIAL HYPERTENSION ICD-9: 401.9 12/25/2013 Active MALAISE AND FATIGUE ICD- 9: 780.79 12/25/2013 Active URGE INCONTINENCE ICD-9: 788.31 12/25/2013 Active Osteoarthritis Unknown 09/12/2013 Active Bruising ICD-9: 924.9 08/15/2013 Active Dizziness and giddiness ICD-9: 780.4 04/23/2013 Active CELLULITIS OF HAND ICD- 9: 682.4 12/11/2012 Active Elevated digoxin level ICD-9: 796.0 10/30/2012 Active Inflammatory arthritis ICD-9: 714.9 10/30/2012 Active URINARY FREQUENCY ICD-9: 788.41 09/13/2012 Active Constipation - functional ICD-9: 564.09 07/11/2012 Active Cystocele ICD-9: 618.01 05/08/2012 Active Rectocele ICD-9: 618.04 05/08/2012 Active 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 04/18/2012 Active VACCIN FOR INFLUENZA ICD- 9: V04.81 04/18/2012 Active Nausea and vomiting ICD- 9: 787.01 03/13/2012 Active Encounter for long-term (current) use of other high-risk medications ICD-9: V58.69 03/08/2012 Active Vaginal yeast infection ICD-9: 112.1 02/13/2012 Active Anticoagulation goal of INR 2 to 3 ICD-9: V58.83 02/01/2012 Active EDEMA ICD-9: 782.3 10/03/2011 Active IMPACTED CERUMEN ICD-9: 380.4 10/03/2011 Active Generalized osteoarthritis ICD-9: 715.09 08/08/2011 Active Muscle cramp ICD-9: 729.82 05/09/2011 Active Rash ICD-9: 782.1 05/09/2011 Active Torticollis ICD-9: 723.5 05/09/2011 Active Leg cramps, sleep related ICD-9: 327.52 03/29/2011 Active Underweight ICD-9: 783.22 03/29/2011 Active Broken radius Unknown 03/15/2011 Active broken ulna Unknown 03/15/2011 Active Broken wrist Unknown 03/15/2011 Active Fracture Unknown 03/15/2011 Active Gastroesophageal reflux disease Unknown 03/15/2011 Active Hypertension Unknown 03/15/2011 Active Hypothryroidism Unknown 03/15/2011 Active Osteoporosis Unknown 03/15/2011 Active Loss of weight ICD-9: 783.21 03/15/2011 Active Palpitations ICD-9: 785.1 03/15/2011 Active Peripheral neuropathy, idiopathic ICD-9: 356.9 03/15/2011 Active Medications Medication Codes Instructions Start Date Stop Date Status Fill Instructions Keflex 500 mg capsule RxNorm: 256341 1 Capsule(s) PO TID 12/07/2018 12/13/2018 Active digoxin 125 mcg tablet RxNorm: 694824 Tablet(s) every other day 12/06/2018 11/30/2019 Active Keflex 500 mg capsule RxNorm: 010633 1 Capsule(s) PO TID 11/30/2018 12/06/2018 Inactive pantoprazole 40 mg tablet,delayed release RxNorm: 434980 1 TABLET(S) PO DAILY 11/29/2018 11/23/2019 Active amlodipine 5 mg tablet RxNorm: 514246 Tablet(s) 1/2 TABLET(S) PO DAILY MAY TAKE AN EXTRA 1/2 PILL AT THE END OF THE DAY IF BLOOD PRESSURE IS ELEVATED OVER 140 11/29/2018 05/27/2019 Active cyclobenzaprine 5 mg tablet RxNorm: 106553 1/2 Tablet(s) PO TID TABLET(S) 1/2 TABLET(S) PO Q8 NEEDED MUSCLE SPASMS 10/31/2018 04/28/2019 Active Imvexxy Starter Pack 4 mcg vaginal insert, dose pack RxNorm: 4759421 1 dose VAG BIW 10/31/2018 01/28/2019 Active Voltaren 1 % topical gel RxNorm: 232958 2 Gram(s) TOP QID on left shoulder and bilateral hands 10/17/2018 05/14/2019 Active PA APPROVED UNTIL JUL 09 2019 [id number] amlodipine 5 mg tablet RxNorm: 584500 1/2 TABLET(S) PO DAILY MAY TAKE AN EXTRA 1/2 PILL AT THE END OF THE DAY IF BLOOD PRESSURE IS ELEVATED OVER 140 10/15/2018 11/28/2018 Inactive Patient requests 90 days supply Voltaren 1 % topical gel RxNorm: 484687 2 Gram(s) TOP QID on left shoulder and bilateral hands 10/09/2018 10/16/2018 Inactive levothyroxine 75 mcg tablet RxNorm: 784609 1 Tablet(s) PO daily 09/19/2018 01/16/2019 Active Keflex 500 mg capsule RxNorm: 487107 1 Capsule(s) PO TID 09/12/2018 09/18/2018 Inactive spironolactone 25 mg tablet RxNorm: 389417 1 Tablet(s) PO BID 08/14/2018 11/06/2019 Active see new directions and quantity cyclobenzaprine 5 mg tablet RxNorm: 334556 Tablet(s) TABLET(S) 1/2 TABLET(S) PO Q8 NEEDED MUSCLE SPASMS 08/14/2018 10/30/2018 Inactive Nitro-Bid 2 % transdermal ointment RxNorm: 768457 1 dime size amount TD BID to fingers and toes 08/14/2018 09/12/2018 Inactive cyclobenzaprine 5 mg tablet RxNorm: 564464 TABLET(S) 1/2 TABLET(S) PO Q8 NEEDED MUSCLE SPASMS 08/06/2018 08/13/2018 Inactive amlodipine 5 mg tablet RxNorm: 497731 1/2 Tablet(s) PO daily may take an extra 1/2 pill at the end of the day if blood pressure is elevated over 140 07/26/2018 10/14/2018 Inactive cefdinir 300 mg capsule RxNorm: 618556 1 Capsule(s) PO BID 06/20/2018 06/26/2018 Inactive cefdinir 300 mg capsule RxNorm: 358740 1 Capsule(s) PO BID 06/20/2018 06/19/2018 Inactive metoprolol succinate ER 50 mg tablet,extended release 24 hr RxNorm: 449677 1.5 Tablet(s) daily 06/15/2018 03/11/2019 Active sucralfate 100 mg/mL oral suspension RxNorm: 330134 2 Teaspoon(s) PO TID as needed with reflux symptoms 06/04/2018 No Stop Date Active Vesicare 10 mg tablet RxNorm: 363222 1 TABLET(S) PO EVERY OTHER DAY 05/14/2018 01/08/2019 Active levothyroxine 50 mcg tablet RxNorm: 541028 1 TABLET(S) PO DAILY 04/30/2018 09/18/2018 Inactive Patient requests 90 days supply spironolactone 25 mg tablet RxNorm: 617682 1 Tablet(s) PO daily 03/14/2018 08/13/2018 Inactive levothyroxine 50 mcg tablet RxNorm: 859823 1 Tablet(s) PO daily 02/01/2018 04/29/2018 Inactive Eliquis 2.5 mg tablet RxNorm: 8000862 1 Tablet(s) PO BID 01/31/2018 02/20/2018 Inactive levothyroxine 50 mcg tablet RxNorm: 332081 1 Tablet(s) PO daily 01/31/2018 01/31/2018 Inactive Eliquis 2.5 mg tablet RxNorm: 0686572 TAKE 1 TABLET BY MOUTH TWICE DAILY 01/23/2018 07/21/2018 Inactive metoprolol succinate ER 50 mg tablet,extended release 24 hr RxNorm: 210827 1 TABLET(S) PO DAILY 01/23/2018 01/30/2018 Inactive metoprolol succinate ER 50 mg tablet,extended release 24 hr RxNorm: 925728 1.5 Tablet(s) daily 01/22/2018 06/14/2018 Inactive lisinopril 20 mg tablet RxNorm: 836707 1/2 Tablet(s) daily 01/19/2018 01/21/2018 Inactive Patient requests 90 days supply Singulair 10 mg tablet RxNorm: 919231 TAKE 1 TABLET BY MOUTH AT BEDTIME 01/18/2018 04/17/2018 Inactive Patient requests 90 days supply Singulair 10 mg tablet RxNorm: 863465 Tablet(s) PO 01/17/2018 01/17/2018 Inactive digoxin 125 mcg tablet RxNorm: 566247 1 TABLET(S) PO DAILY 01/03/2018 12/05/2018 Inactive Symbicort 160 mcg-4.5 mcg/actuation HFA aerosol inhaler RxNorm: 3194857 2 Puff(s) INH BID 12/14/2017 04/12/2018 Inactive please dispense an aerochamber for patient as well as her symbicort cyclobenzaprine 5 mg tablet RxNorm: 894377 Tablet(s) 1/2 TABLET(S) PO Q8 NEEDED MUSCLE SPASMS 12/14/2017 08/05/2018 Inactive pantoprazole 40 mg tablet,delayed release RxNorm: 401405 1 Tablet(s) PO daily 12/14/2017 11/28/2018 Inactive ProAir RespiClick 90 mcg/actuation breath activated RxNorm: 0412367 1-2 INH QID as needed shortness of breath 12/14/2017 07/11/2018 Inactive cyclobenzaprine 5 mg tablet RxNorm: 460675 1/2 TABLET(S) PO Q8 NEEDED MUSCLE SPASMS 12/08/2017 12/13/2017 Inactive betamethasone dipropionate 0.05 % topical ointment RxNorm: 341492 1 Application TOP TID use topically on the rectal tissue three times daily x 1 week then as needed 11/13/2017 No Stop Date Active Premarin 0.625 mg/gram vaginal cream RxNorm: 424618 1/2 GRAM(S) VAG TIW 11/13/2017 10/30/2018 Inactive cyclobenzaprine 5 mg tablet RxNorm: 640156 1/2 TABLET(S) PO Q8 NEEDED MUSCLE SPASMS 10/17/2017 12/07/2017 Inactive Vesicare 10 mg tablet RxNorm: 672883 1 Tablet(s) PO every other day 10/17/2017 04/14/2018 Inactive lisinopril 20 mg tablet RxNorm: 233514 1 TABLET(S) PO DAILY 10/02/2017 01/18/2018 Inactive Patient requests 90 days supply levothyroxine 75 mcg tablet RxNorm: 986330 1 TABLET(S) PO DAILY 09/25/2017 01/30/2018 Inactive spironolactone 25 mg tablet RxNorm: 979177 1 TABLET(S) PO DAILY 08/16/2017 03/13/2018 Inactive cyclobenzaprine 5 mg tablet RxNorm: 622648 1/2 TABLET(S) PO Q8 NEEDED MUSCLE SPASMS 08/16/2017 10/16/2017 Inactive Eliquis 2.5 mg tablet RxNorm: 4790020 TAKE 1 TABLET BY MOUTH TWICE DAILY 07/26/2017 01/21/2018 Inactive cyclobenzaprine 5 mg tablet RxNorm: 315734 1/2 Tablet(s) PO Q8 as needed muscle spasms 06/19/2017 08/15/2017 Inactive lisinopril 20 mg tablet RxNorm: 097895 1 TABLET(S) PO DAILY 06/12/2017 10/01/2017 Inactive metoprolol succinate ER 50 mg tablet,extended release 24 hr RxNorm: 770436 1 TABLET(S) PO DAILY 04/07/2017 01/01/2018 Inactive spironolactone 25 mg tablet RxNorm: 043840 1 Tablet(s) PO daily 03/27/2017 03/13/2018 Inactive acyclovir 800 mg tablet RxNorm: 587909 1 Tablet(s) PO TID 03/21/2017 03/30/2017 Inactive acyclovir 800 mg tablet RxNorm: 686416 1 Tablet(s) PO TID 03/21/2017 03/20/2017 Inactive levothyroxine 75 mcg tablet RxNorm: 980023 1 Tablet(s) PO daily 03/16/2017 09/11/2017 Inactive spironolactone 25 mg tablet RxNorm: 434692 1 TABLET(S) PO DAILY 02/09/2017 03/26/2017 Inactive lisinopril 20 mg tablet RxNorm: 903776 1 TABLET(S) PO DAILY 01/02/2017 05/31/2017 Inactive Zithromax Z-Claudio 250 mg tablet RxNorm: 373282 1 Tablet(s) PO UD 11/29/2016 12/03/2016 Inactive ZPACK Keflex 500 mg capsule RxNorm: 488672 1 Capsule(s) PO TID 11/23/2016 12/02/2016 Inactive guaifenesin 400 mg tablet RxNorm: 095937 1 Tablet(s) PO Q6 as needed 11/23/2016 11/27/2016 Inactive omeprazole 40 mg capsule,delayed release RxNorm: 987730 1 Capsule(s) PO QPM 11/02/2016 12/13/2017 Inactive digoxin 125 mcg tablet RxNorm: 266059 1 TABLET(S) PO DAILY 10/27/2016 07/23/2017 Inactive cyclobenzaprine 5 mg tablet RxNorm: 086126 1/2 Tablet(s) PO Q8 PRN 10/25/2016 06/18/2017 Inactive prn muscle spasms Augmentin 500 mg-125 mg tablet RxNorm: 198876 1 Tablet(s) PO BID 10/24/2016 11/02/2016 Inactive Lasix 20 mg tablet RxNorm: 032027 Tablet(s) PRN one to two times a week if needed 07/27/2016 No Stop Date Active Patient requests 90 days supply spironolactone 25 mg tablet RxNorm: 099867 1 Tablet(s) PO daily 07/27/2016 02/08/2017 Inactive Diflucan 150 mg tablet RxNorm: 473312 1 Tablet(s) PO daily 07/27/2016 08/02/2016 Inactive lisinopril 20 mg tablet RxNorm: 204206 1 Tablet(s) PO daily 07/12/2016 01/01/2017 Inactive Lasix 20 mg tablet RxNorm: 1 TABLET(S) PO EVERY OTHER DAY EVERY OTHER DAY 06/10/2016 07/26/2016 Inactive Patient requests 90 days supply potassium chloride ER 10 mEq capsule,extended release RxNorm: 360079 1 CAPSULE(S) PO EVERY OTHER DAY 06/10/2016 07/26/2016 Inactive Patient requests 90 days supply potassium chloride ER 10 mEq capsule,extended release RxNorm: 122035 1 Capsule(s) PO every other day 06/09/2016 06/09/2016 Inactive Lasix 20 mg tablet RxNorm: 221058 1 Tablet(s) PO every other day every other day 06/09/2016 06/09/2016 Inactive levothyroxine 88 mcg tablet RxNorm: 143825 1 Tablet(s) PO daily 05/11/2016 11/06/2016 Inactive Premarin 0.625 mg/gram vaginal cream RxNorm: 004405 1/2 Gram(s) VAG TIW 03/24/2016 03/18/2017 Inactive metoprolol succinate ER 50 mg tablet,extended release 24 hr RxNorm: 455763 1 Tablet(s) PO daily 03/24/2016 03/18/2017 Inactive pantoprazole 40 mg tablet,delayed release RxNorm: 714686 1 Tablet(s) PO daily 02/08/2016 11/01/2016 Inactive betamethasone dipropionate 0.05 % topical ointment RxNorm: 461978 1 Application TOP TID use topically on the rectal tissue three times daily x 1 week then as needed 02/02/2016 11/12/2017 Inactive pantoprazole 40 mg tablet,delayed release RxNorm: 305756 1 Tablet(s) PO daily 2016 02/07/2016 Inactive alprazolam 0.25 mg tablet RxNorm: 643911 1 Tablet(s) PO Q6 as needed 12/04/2015 No Stop Date Active Vesicare 10 mg tablet RxNorm: 961469 1 Tablet(s) PO every other day 11/03/2015 10/16/2017 Inactive alprazolam 0.25 mg tablet RxNorm: 117269 1 Tablet(s) PO Q6 as needed 11/03/2015 12/03/2015 Inactive Premarin 0.625 mg/gram vaginal cream RxNorm: 049132 1/2 Gram(s) VAG TIW 11/03/2015 03/23/2016 Inactive levothyroxine 88 mcg tablet RxNorm: 766253 1 Tablet(s) PO daily 11/03/2015 05/10/2016 Inactive Diflucan 150 mg tablet RxNorm: 940080 1 Tablet(s) PO daily 10/19/2015 10/25/2015 Inactive cetirizine 10 mg chewable tablet RxNorm: 0181887 1 Tablet(s) PO daily 10/13/2015 11/11/2015 Inactive cetirizine 10 mg capsule RxNorm: 7966701 1 Capsule(s) PO daily 10/13/2015 11/11/2015 Inactive Vesicare 10 mg tablet RxNorm: 274797 1/2 TABLET(S) PO BID 09/21/2015 11/02/2015 Inactive betamethasone dipropionate 0.05 % topical ointment RxNorm: 235896 1 Application TOP TID use topically on the rectal tissue three times daily x 1 week then as needed 09/15/2015 02/01/2016 Inactive lisinopril 20 mg tablet RxNorm: 304636 1 Tablet(s) PO daily 09/01/2015 07/11/2016 Inactive digoxin 125 mcg tablet RxNorm: 694573 1 Tablet(s) PO daily 09/01/2015 08/25/2016 Inactive Augmentin 500 mg-125 mg tablet RxNorm: 453971 1 Tablet(s) PO TID 05/26/2015 06/04/2015 Inactive Pyridium 200 mg tablet RxNorm: 4639186 1 Tablet(s) PO TID 05/26/2015 05/27/2015 Inactive levothyroxine 88 mcg tablet RxNorm: 197108 1 Tablet(s) PO daily except 1/2 pill on monday and 05/07/2015 11/02/2015 Inactive digoxin 125 mcg tablet RxNorm: 457573 1 Tablet(s) PO daily 05/07/2015 08/31/2015 Inactive lisinopril 20 mg tablet RxNorm: 279763 1 TABLET(S) PO BID 04/13/2015 09/01/2015 Inactive Coumadin 1 mg tablet RxNorm: 473871 1 TABLET(S) PO DAILY 03/31/2015 08/31/2015 Inactive Coumadin 2 mg tablet RxNorm: 894242 4MG IN AM AND 1MG AT NIGHT TABLET(S) PO DAILY DIRECTED. 03/31/2015 08/31/2015 Inactive levothyroxine 88 mcg tablet RxNorm: 276135 1 Tablet(s) PO daily 03/23/2015 05/06/2015 Inactive alprazolam 0.25 mg tablet RxNorm: 040337 Tablet(s) PO 03/23/2015 04/06/2015 Inactive levothyroxine 88 mcg tablet RxNorm: 137837 1 Tablet(s) PO daily 01/28/2015 03/22/2015 Inactive levothyroxine 88 mcg tablet RxNorm: 116843 1 Tablet(s) PO daily 01/28/2015 01/27/2015 Inactive diltiazem ER 120 mg capsule,extended release RxNorm: 960316 1 Capsule(s) PO BID patient would like 4 months at a time 01/06/2015 09/28/2015 Inactive digoxin 125 mcg tablet RxNorm: 862038 Tablet(s) 1 TABLET(S) PO DAILY 12/24/2014 12/23/2014 Inactive pt will be paying [employer] (On $4 list)Patient requests 90 days supply digoxin 125 mcg tablet RxNorm: 745194 Tablet(s) 1 TABLET(S) PO DAILY M W F Sat and 2 tabs on T TH 12/24/2014 05/06/2015 Inactive pt will be paying [employer] (On $4 list)Patient requests 90 days supply dicyclomine 20 mg tablet RxNorm: 149295 1 Tablet(s) PO daily 11/17/2014 08/31/2015 Inactive one ac dinner and up to tid prn levothyroxine 88 mcg tablet RxNorm: 628969 1 Tablet(s) PO daily 11/03/2014 01/27/2015 Inactive Premarin 0.625 mg/gram vaginal cream RxNorm: 140504 1 APPLICATION VAG 1 APPLICATOR PER VAGINA 3 TIMES PER WEEK 11/03/2014 07/30/2015 Inactive digoxin 125 mcg tablet RxNorm: 788004 1 TABLET(S) PO DAILY 09/29/2014 12/23/2014 Inactive pt will be paying [employer] (On $4 list)Patient requests 90 days supply digoxin 125 mcg tablet RxNorm: 565905 1 TABLET(S) PO DAILY 07/11/2014 04/06/2015 Inactive Vesicare 10 mg tablet RxNorm: 866527 1/2 Tablet(s) PO BID 05/20/2014 05/14/2015 Inactive Levaquin 500 mg tablet RxNorm: 217338 1 Tablet(s) PO daily 05/06/2014 05/08/2014 Inactive take probiotic BID while on ABT Levaquin 500 mg tablet RxNorm: 260826 1 Tablet(s) PO daily 05/02/2014 05/05/2014 Inactive take probiotic BID while on ABT diltiazem ER 120 mg capsule,extended release RxNorm: 756619 1 Capsule(s) PO BID patient would like 4 months at a time 04/29/2014 2015 Inactive Vesicare 10 mg tablet RxNorm: 473189 1/2 Tablet(s) PO BID 04/29/2014 05/19/2014 Inactive lisinopril 20 mg tablet RxNorm: 984092 1 Tablet(s) PO BID 03/20/2014 03/14/2015 Inactive diltiazem 90 mg tablet RxNorm: 412322 1/2 TABLET(S) PO QPM 03/04/2014 04/28/2014 Inactive also 180 q am diltiazem ER 120 mg capsule,extended release RxNorm: 601833 1 Capsule(s) PO daily patient would like 4 months at a time 01/29/2014 04/28/2014 Inactive Vesicare 10 mg tablet RxNorm: 412082 1 Tablet(s) PO QHS 01/14/2014 04/28/2014 Inactive Coumadin 2 mg tablet RxNorm: 093453 4mg in AM and 1mg at night Tablet(s) PO daily as directed. 12/25/2013 03/30/2015 Inactive Metanx 3 mg-35 mg-2 mg tablet RxNorm: 1 Tablet(s) PO daily 12/25/2013 11/02/2015 Inactive digoxin 125 mcg tablet RxNorm: 920797 1 Tablet(s) PO daily 12/25/2013 09/28/2014 Inactive pt will be paying [employer] (On $4 list) Coumadin 2 mg tablet RxNorm: 260859 7.5 wed 5mg other Tablet(s) PO as directed. 12/03/2013 12/24/2013 Inactive omeprazole 20 mg tablet,delayed release RxNorm: 110696 1 Tablet(s) PO BID 11/27/2013 04/28/2014 Inactive Coumadin 2 mg tablet RxNorm: 398062 5 mg daily Tablet(s) PO as directed. 11/26/2013 12/02/2013 Inactive 5 mg daily Xanax 0.25 mg tablet RxNorm: 234068 1 Tablet(s) PO Q6 PRN 11/11/2013 12/25/2013 Inactive alprazolam 0.25 mg tablet RxNorm: 293987 tablet oral 11/11/2013 03/22/2015 Inactive sucralfate 1 gram tablet RxNorm: 286351 1 Tablet(s) PO AC & HS 11/04/2013 11/03/2013 Inactive sucralfate 1 gram tablet RxNorm: 541132 1 Tablet(s) PO AC & HS 11/04/2013 01/02/2014 Inactive Synthroid 100 mcg tablet RxNorm: 544624 1 Tablet(s) PO daily 10/31/2013 10/25/2014 Inactive Synthroid 100 mcg tablet RxNorm: 620117 1 Tablet(s) PO daily 09/30/2013 10/29/2013 Inactive Vesicare 10 mg tablet RxNorm: 647849 1 Tablet(s) PO QHS 09/30/2013 01/13/2014 Inactive Lotemax 0.5 % eye ointment RxNorm: 1247878 ointment opht 09/06/2013 12/10/2013 Inactive levothyroxine 100 mcg tablet RxNorm: 839357 tablet oral 09/05/2013 11/02/2014 Inactive Synthroid 100 mcg tablet RxNorm: 690496 1 Tablet(s) PO daily 09/05/2013 09/29/2013 Inactive Prolia 60 mg/mL Sub-Q Syringe RxNorm: 406435 1 Milliliter(s) SQ 06/25/2013 11/02/2015 Inactive dicyclomine 20 mg tablet RxNorm: 883159 1 Tablet(s) PO daily 06/24/2013 06/18/2014 Inactive one ac dinner and up to tid prn omeprazole 20 mg tablet,delayed release RxNorm: 368413 1 Tablet(s) PO BID 06/24/2013 11/26/2013 Inactive Cipro 500 mg tablet RxNorm: 731757 1 Tablet(s) PO BID 06/20/2013 06/26/2013 Inactive diltiazem ER 120 mg capsule,extended release RxNorm: 097536 1 Capsule(s) PO daily patient would like 4 months at a time 06/03/2013 01/28/2014 Inactive Coumadin 2 mg tablet RxNorm: 520370 as directed Tablet(s) PO as directed. 05/29/2013 11/25/2013 Inactive 5 mg daily Synthroid 88 mcg tablet RxNorm: 107871 1 Tablet(s) PO daily 04/24/2013 04/23/2013 Inactive Synthroid 88 mcg tablet RxNorm: 234562 1 Tablet(s) PO daily 04/24/2013 07/28/2013 Inactive Premarin 0.625 mg/gram vaginal cream RxNorm: 030799 1 Application VAG 1 applicator per vagina 3 times per week 04/23/2013 04/17/2014 Inactive Influenza Virus Vaccine 0.5 mL RxNorm: IM 04/23/2013 04/23/2013 Inactive digoxin 125 mcg tablet RxNorm: 142773 1 Tablet(s) PO daily 02/20/2013 04/20/2013 Inactive pt will be paying [employer] (On $4 list) Digox 125 mcg tablet RxNorm: 1714513 tablet oral 02/13/2013 03/20/2014 Inactive digoxin 125 mcg tablet RxNorm: 509858 1 Tablet(s) PO daily 02/13/2013 02/19/2013 Inactive diltiazem 90 mg tablet RxNorm: 482141 1/2 Tablet(s) PO QPM 02/13/2013 02/07/2014 Inactive also 180 q am Levoxyl 75 mcg tablet RxNorm: 032129 1 Tablet(s) PO 01/16/2013 04/23/2013 Inactive Coumadin 2 mg tablet RxNorm: 851031 6mg daily except 3mg on wed and fri Tablet(s) PO 01/15/2013 05/28/2013 Inactive 5 mg daily Coumadin 2 mg tablet RxNorm: 565687 6mg daily Tablet(s) PO 12/21/2012 01/14/2013 Inactive 5 mg daily silver sulfadiazine 1 % Topical Cream RxNorm: 772603 TOP apply to affected area with each dressing change 12/19/2012 12/25/2013 Inactive cephalexin 500 mg tablet RxNorm: 418700 1 Tablet(s) PO TID 12/11/2012 12/17/2012 Inactive digoxin 125 mcg tablet RxNorm: 709080 1 Tablet(s) PO daily 10/30/2012 02/12/2013 Inactive digoxin 125 mcg tablet RxNorm: 234157 2 tab tue thurs one other days Tablet(s) PO daily 10/23/2012 10/29/2012 Inactive lisinopril 10 mg tablet RxNorm: 918811 1 Tablet(s) PO daily 10/17/2012 08/14/2013 Inactive Cipro 500 mg tablet RxNorm: 409280 1 Tablet(s) PO BID 09/13/2012 09/19/2012 Inactive Coumadin 1 mg tablet RxNorm: 165108 1 Tablet(s) PO daily 09/03/2012 09/02/2012 Inactive Coumadin 1 mg tablet RxNorm: 226724 1 Tablet(s) PO daily 09/03/2012 12/21/2012 Inactive Coumadin 2 mg tablet RxNorm: 999838 Tablet(s) PO 07/25/2012 12/20/2012 Inactive 5 mg daily digoxin 125 mcg tablet RxNorm: 061478 1 Tablet(s) PO daily 06/28/2012 10/22/2012 Inactive Coumadin 2 mg tablet RxNorm: 867543 Tablet(s) PO 06/27/2012 07/24/2012 Inactive 5mg daily except 4mg on monday Coumadin 2 mg tablet RxNorm: 366091 Tablet(s) PO 06/19/2012 06/26/2012 Inactive 5mg e wed thur sat sun4mg mond(has 2mg and 1 mg tab) digoxin 125 mcg tablet RxNorm: 362072 1 Tablet(s) PO daily 05/29/2012 06/27/2012 Inactive Coumadin 2 mg tablet RxNorm: 936447 Tablet(s) PO 05/15/2012 06/18/2012 Inactive 5mg tue thur sat sun4mg mond(has 2mg and 1 mg tab) Coumadin 2 mg tablet RxNorm: 539557 Tablet(s) PO 04/25/2012 05/14/2012 Inactive 5mg tue thru sat4mg mond sun(has 2mg and 1 mg tab) Metanx 3 mg-35 mg-2 mg tablet RxNorm: 1 Tablet(s) PO BID 04/18/2012 12/24/2013 Inactive dicyclomine 20 mg tablet RxNorm: 462926 1 Tablet(s) PO 04/18/2012 06/23/2013 Inactive one ac dinner and up to tid prn digoxin 125 mcg tablet RxNorm: 695567 Tablet(s) PO daily except .25 on Tuesdays and 04/09/2012 05/28/2012 Inactive omeprazole 20 mg tablet,delayed release RxNorm: 812428 1 Tablet(s) PO BID 04/09/2012 04/03/2013 Inactive digoxin 125 mcg tablet RxNorm: 704914 1 Tablet(s) PO UD daily except none on Tuesdays and 03/13/2012 04/08/2012 Inactive Premarin 0.625 mg/gram Vaginal Cream RxNorm: 566234 1 Application VAG 1 applicator per vagina 3 times per week 02/20/2012 02/13/2013 Inactive omeprazole 20 mg tablet,delayed release RxNorm: 198465 1 Tablet(s) PO BID 02/13/2012 04/08/2012 Inactive Vesicare 10 mg tablet RxNorm: 823684 1 Tablet(s) PO QHS 02/13/2012 02/06/2013 Inactive Diflucan 150 mg tablet RxNorm: 022154 1 Tablet(s) PO daily 02/13/2012 02/19/2012 Inactive omeprazole 20 mg tablet,delayed release RxNorm: 301622 1 Tablet(s) PO BID 01/06/2012 02/12/2012 Inactive Calcium 600 + D(3) 600 mg (1,500)-200 unit Tab RxNorm: 750613 2 Tablet(s) PO BID 01/06/2012 08/31/2015 Inactive diltiazem 90 mg tablet RxNorm: 211495 1/2 Tablet(s) PO QPM 12/26/2011 02/12/2013 Inactive also 180 q am diltiazem ER 180 mg Cap RxNorm: 920003 1 Capsule(s) PO QAM 12/26/2011 04/08/2012 Inactive 45mg q hs Flagyl 500 mg Tab RxNorm: 388904 1 Tablet(s) PO BID 12/14/2011 12/20/2011 Inactive dicyclomine 10 mg Cap RxNorm: 993536 1 Capsule(s) PO AC & HS 12/01/2011 12/25/2011 Inactive Levaquin 500 mg Tab RxNorm: 996750 1 Tablet(s) PO daily 11/23/2011 11/29/2011 Inactive Rocephin 500 mg Solution for Injection RxNorm: 3551639 Inj 11/23/2011 11/23/2011 Inactive acyclovir 400 mg Tab RxNorm: 083785 1 Tablet(s) PO QID 11/10/2011 11/19/2011 Inactive acyclovir 400 mg Tab RxNorm: 696687 1 Tablet(s) PO QID 11/10/2011 11/09/2011 Inactive lisinopril 20 mg Tab RxNorm: 130270 1 Tablet(s) PO daily 10/03/2011 11/27/2011 Inactive lisinopril 20 mg Tab RxNorm: 002203 1 Tablet(s) PO daily 08/08/2011 10/02/2011 Inactive Reclast 5 mg/100 mL IV RxNorm: 820073 Milliliter(s) IV Yearly 06/08/2011 01/16/[address] Hansen manages Rocephin 500 mg Solution for Injection RxNorm: 0940562 1 Milliliter(s) Inj 03/04/2011 08/08/2011 Inactive Ceftin 500 mg Tab RxNorm: 218828 1 Tablet(s) PO BID 03/04/2011 08/08/2011 Inactive Vitamin D3 1,000 unit tablet RxNorm: 446884 2 Tablet(s) PO daily No Start Date Active Stool Softener 100 mg tablet RxNorm: 8262727 2 Tablet(s) PO QHS No Start Date Active Beano tablet RxNorm: 2-3 Tablet(s) PO as needed No Start Date Active Probiotic Pearls 15 mg (1 billion cell) capsule,delayed release RxNorm: 1 Capsule(s) PO daily No Start Date Active Lipitor 10 mg tablet RxNorm: 950237 1 Tablet(s) PO daily No Start Date Active Miralax 17 gram oral powder packet RxNorm: 049501 1/2 packet PO QHS No Start Date Active multivitamin Tab RxNorm: 1 Tablet(s) PO daily No Start Date Active Tylenol Extra Strength 500 mg tablet RxNorm: 368100 2 Tablet(s) PO as needed No Start Date Active Combigan 0.2 %-0.5 % eye drops RxNorm: 490567 1 Drop(s) OPH BID No Start Date Active 1 drop twice daily left eye Lexapro 5 mg tablet RxNorm: 427221 1 Tablet(s) PO daily No Start Date Active Tatiana Allergy 180 mg tablet RxNorm: 975720 1 Tablet(s) PO daily No Start Date Active Lotemax 0.5 % eye drops,suspension RxNorm: 366657 1 Drop(s) OPH right eye BID No Start Date Active Levoxyl 50 mcg tablet RxNorm: 690340 1 Tablet(s) PO daily No Start Date 01/15/2013 Inactive lisinopril-hydrochlorothiazide 20 mg-25 mg Tab RxNorm: 860551 1 Tablet(s) PO daily No Start Date 08/07/2011 Inactive Metanx 3 mg-35 mg-2 mg tablet RxNorm: 1 Tablet(s) PO daily No Start Date 04/17/2012 Inactive diltiazem CD 120 mg capsule,extended release 24 hr RxNorm: 685760 1 Capsule(s) PO daily No Start Date 09/28/2015 Inactive lisinopril 20 mg tablet RxNorm: 525204 Tablet(s) PO No Start Date Active Lumigan 0.01 % Eye Drops RxNorm: 7079230 1 Drop(s) OPH daily Left eye No Start Date 12/10/2013 Inactive prednisolone acetate 1 % Eye Drops, Susp RxNorm: 8797618 1 Drop(s) OPH BID 1 drop right eye am and hs No Start Date 11/02/2015 Inactive Eliquis 5 mg tablet RxNorm: 9400534 1 Tablet(s) PO BID No Start Date 06/08/2016 Inactive potassium gluconate (bulk) Misc RxNorm: Miscellaneous No Start Date 12/25/2011 Inactive Calcium 600 + D(3) 600 mg (1,500)-200 unit Tab RxNorm: 263804 3 Tablet(s) PO daily No Start Date 2012 Inactive Zyrtec 10 mg tablet RxNorm: 8140268 1 Tablet(s) PO daily No Start Date 08/02/2016 Inactive Synthroid 100 mcg tablet RxNorm: 458200 1 Tablet(s) PO daily No Start Date 09/04/2013 Inactive metoprolol succinate ER 50 mg tablet,extended release 24 hr RxNorm: 946246 1 Tablet(s) PO daily No Start Date 03/23/2016 Inactive Carafate 100 mg/mL oral suspension RxNorm: 701149 2 Teaspoon(s) PO as needed with reflux symptoms No Start Date 06/03/2018 Inactive Metanx 3 mg-35 mg-2 mg tablet RxNorm: 1 Tablet(s) PO daily 2pm No Start Date 11/02/2015 Inactive Lexapro 5 mg tablet RxNorm: 409001 1 Tablet(s) PO daily No Start Date 08/18/2015 Inactive Iron (dried) oral RxNorm: 37695 oral No Start Date 11/02/2015 Inactive timolol 0.5 % Eye Drops RxNorm: 835605 1 Drop(s) OPH daily left eye No Start Date 12/18/2013 Inactive multivitamin Cap RxNorm: 1 Capsule(s) PO daily No Start Date 12/25/2011 Inactive dicyclomine 10 mg Cap RxNorm: 238246 2 Capsule(s) PO daily No Start Date 11/30/2011 Inactive silver sulfadiazine 1 % Topical Cream RxNorm: 539915 TOP apply to affected area with each dressing change No Start Date 12/18/2012 Inactive magnesium oxide 400 mg Tab RxNorm: 080238 1 Tablet(s) PO daily No Start Date 11/02/2015 Inactive Pradaxa 75 mg Cap RxNorm: 3377011 1 Capsule(s) PO BID No Start Date 04/09/2012 Inactive magnesium oxide 400 mg Tab RxNorm: 620016 2 Tablet(s) PO daily magnesium plus zinc No Start Date 12/25/2011 Inactive biotin 1000 mg RxNorm: 1 PO daily No Start Date 12/25/2011 Inactive Synthroid 50 mcg Tab RxNorm: 145125 Tablet(s) PO No Start Date 12/25/2011 Inactive diltiazem ER 180 mg Cap RxNorm: 236090 1 Capsule(s) PO daily No Start Date 12/25/2011 Inactive 1 D 3 1000 iu Oral RxNorm: Oral No Start Date 12/25/2011 Inactive Coumadin 2 mg tablet RxNorm: 599569 Tablet(s) PO No Start Date 04/24/2012 Inactive 5mg tue [id number] mon sat sun(has 2mg and 1 mg tab) dicyclomine 20 mg tablet RxNorm: 724402 Tablet(s) PO No Start Date 04/17/2012 Inactive one ac dinner and up to tid prn lactobacillus acidophilus tablet RxNorm: 1 Tablet(s) PO daily No Start Date 11/03/2015 Inactive Eliquis 2.5 mg tablet RxNorm: 4289730 1 Tablet(s) PO BID No Start Date 07/25/2017 Inactive Levoxyl 75 mcg Tab RxNorm: 295971 1 Tablet(s) PO daily No Start Date 10/02/2011 Inactive digoxin 125 mcg tablet RxNorm: 085994 1 Tablet(s) PO daily No Start Date 03/12/2012 Inactive pantoprazole 40 mg tablet,delayed release RxNorm: 124138 1 Tablet(s) PO BID No Start Date 01/04/2016 Inactive cyclobenzaprine 5 mg tablet RxNorm: 905917 1/2 Tablet(s) PO Q8 PRN No Start Date 10/24/2016 Inactive diltiazem 90 mg Tab RxNorm: 421225 1/2 Tablet(s) PO QPM No Start Date 12/25/2011 Inactive Mirapex 1 mg Tab RxNorm: 043755 1 Tablet(s) PO QHS No Start Date 12/25/2011 Inactive Xanax 0.25 mg tablet RxNorm: 676347 1 Tablet(s) PO Q6 PRN No Start Date 11/10/2013 Inactive Premarin 0.625 mg/gram Vaginal Cream RxNorm: 634455 1 Application VAG 1 applicator per vagina 3 times per week No Start Date 02/19/2012 Inactive Synthroid 75 mcg Tab RxNorm: 836385 1 Tablet(s) PO daily No Start Date 04/17/2012 Inactive lisinopril 40 mg Tab RxNorm: 195094 1 Tablet(s) PO daily No Start Date 12/25/2011 Inactive Glucosamine Chondroitin Complex Advanced [id number]-1.65mg Tab RxNorm: 2 Tablet(s) PO daily No Start Date 08/08/2011 Inactive famotidine 20 mg tablet RxNorm: 598085 1 Tablet(s) PO QAM No Start Date 11/02/2015 Inactive cranberry extract 250 mg Tab RxNorm: 116682 2 Tablet(s) PO daily No Start Date 08/08/2011 Inactive Vitamin D3 1,000 unit capsule RxNorm: 693628 1 Capsule(s) PO daily No Start Date 08/31/2015 Inactive aspirin 81 mg Tab, Delayed Release RxNorm: 376703 1 Tablet(s) PO daily No Start Date 08/31/2015 Inactive diltiazem ER 120 mg capsule,extended release RxNorm: 243031 1 Capsule(s) PO daily patient would like 4 months at a time No Start Date 06/02/2013 Inactive omeprazole 20 mg Tab, Delayed Release RxNorm: 680325 2 Tablet(s) PO QHS No Start Date 2012 Inactive lisinopril 10 mg tablet RxNorm: 685312 1/2 Tablet(s) PO daily No Start Date 10/16/2012 Inactive Pred Forte 1 % Eye Drops RxNorm: 207072 1 Drop(s) OPH daily right eye No Start Date 12/25/2013 Inactive calcium carbonate 400 mg Chewable Tab RxNorm: 030351 1 Tablet(s) PO daily No Start Date 08/08/2011 Inactive Vesicare 10 mg tablet RxNorm: 860506 1 Tablet(s) PO QHS No Start Date 02/12/2012 Inactive Symbicort 160 mcg-4.5 mcg/actuation HFA aerosol inhaler RxNorm: 2579399 2 Puff(s) INH BID No Start Date 12/13/2017 Inactive potassium 99 mg tablet RxNorm: 1 Tablet(s) PO QPM No Start Date 12/25/2013 Inactive timolol 0.25 % Eye Drops RxNorm: 051690 1 Drop(s) OPH daily Left eye No Start Date 04/17/2012 Inactive diltiazem ER 90 mg capsule,extended release 12 hr RxNorm: 728333 1/2 Capsule(s) PO QPM No Start Date 04/28/2014 Inactive cyclobenzaprine 5 mg Tab RxNorm: 369335 1/2-1 Tablet(s) PO Q8 PRN No Start Date 12/25/2011 Inactive 1/2 - 1 tab q 8hrs prn muscle spasms Medication Administered Medication Codes Instructions Start Date Status Influenza Virus Vaccine 0.5 mL RxNorm: 04/23/2013 No longer Active Rocephin 500 mg Solution for Injection RxNorm: 4312898 11/23/2011 No longer Active Immunizations Vaccine Codes Date Status Influenza CVX: 141 03/15/2018 completed Influenza CVX: 141 03/27/2017 completed Influenza CVX: 141 03/24/2016 completed PPD Unknown 10/19/2015 completed Pneumococcal (Adult) CVX: 133 05/13/2015 completed Pneumococcal (Adult) CVX: 133 05/13/2015 completed Pneumococcal (Adult) CVX: 33 07/11/2014 completed Influenza CVX: 141 03/20/2014 completed Influenza CVX: 141 04/23/2013 completed Influenza CVX: 141 04/18/2012 completed Assessments Condition Codes Effective Dates Cough ICD-10: R05 ICD-9: 786.2 12/06/2018 Chronic atrial fibrillation ICD-10: I48.2 ICD-9: 427.31 12/06/2018 Acute laryngopharyngitis ICD-10: J06.0 ICD-9: 465.0 11/30/2018 Postmenopausal atrophic vaginitis ICD-10: N95.2 ICD-9: 627.3 10/31/2018 Atrophy of thyroid (acquired) ICD-10: E03.4 ICD-9: 244.8 10/31/2018 Essential (primary) hypertension ICD-10: I10 ICD-9: 401.1 10/31/2018 Pain in left hand ICD-10: M79.642 ICD-9: 729.5 10/09/2018 Raynaud's syndrome without gangrene ICD-10: I73.00 ICD-9: 443.0 10/09/2018 Pain in right hand ICD-10: M79.641 ICD-9: 729.5 10/09/2018 Other allergic rhinitis ICD-10: J30.89 ICD-9: 477.8 09/12/2018 Pain in right toe(s) ICD-10: M79.674 ICD-9: 729.5 08/14/2018 Sebaceous cyst ICD-10: L72.3 ICD-9: 706.2 07/26/2018 Encounter for screening mammogram for malignant neoplasm of breast ICD-10: Z12.31 ICD-9: V76.12 06/08/2018 Gastro-esophageal reflux disease without esophagitis ICD-10: K21.9 ICD-9: 530.81 06/04/2018 Essential (primary) hypertension ICD-10: I10 ICD-9: 401.9 01/31/2018 Other termite helper (current) drug therapy ICD-10: Z79.899 ICD-9: V58.83 01/31/2018 Encounter for general adult medical examination with abnormal findings ICD-10: Z00.01 ICD-9: V70.0 01/17/2018 Allergic rhinitis due to pollen ICD-10: J30.1 ICD-9: 477.0 12/14/2017 Encounter for immunization ICD-10: Z23 ICD-9: V04.81 03/27/2017 Age-related osteoporosis without current pathological fracture ICD-10: M81.0 ICD-9: 733.00 03/27/2017 Localized edema ICD-10: R60.0 ICD-9: 782.3 03/27/2017 Dysphonia ICD-10: R49.0 ICD-9: 784.42 01/19/2017 Acute upper respiratory infection, unspecified ICD-10: J06.9 ICD-9: 465.9 11/29/2016 Laceration without foreign body of right forearm, subsequent encounter ICD-10: S51.811D ICD-9: V58.89 11/17/2016 Laceration without foreign body of right forearm, initial encounter ICD-10: S51.811A ICD-9: 881.00 10/27/2016 Abdominal distension (gaseous) ICD-10: R14.0 ICD-9: 787.3 07/27/2016 Pruritus ani ICD-10: L29.0 ICD-9: 698.0 05/25/2016 Irritable bowel syndrome without diarrhea ICD-10: K58.9 ICD-9: 564.1 05/25/2016 First degree hemorrhoids ICD-10: K64.0 ICD-9: 455.6 03/24/2016 Other termite helper (current) drug therapy ICD-10: Z79.899 ICD-9: V58.69 02/02/2016 Epidermal cyst ICD-10: L72.0 ICD-9: 706.2 02/02/2016 Acute anal fissure ICD-10: K60.0 ICD-9: 565.0 2016 Impacted cerumen, right ear ICD-10: H61.21 ICD-9: 389.8 10/19/2015 Urge incontinence ICD-10: N39.41 ICD-9: 788.31 09/29/2015 Unspecified hemorrhoids ICD-10: K64.9 ICD-9: 455.6 09/15/2015 Hypothyroidism, unspecified ICD-10: E03.9 ICD-9: 244.9 09/01/2015 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 ICD-9: 189.1 09/01/2015 Other specified noninflammatory disorders of vagina ICD-10: N89.8 ICD-9: 625.8 05/26/2015 Hematuria, unspecified ICD-10: R31.9 ICD-9: 599.70 05/26/2015 Other urethritis ICD-10: N34.2 ICD-9: 597.80 05/26/2015 Gout, unspecified ICD-10: M10.9 ICD-9: 274.9 05/21/2015 Unspecified atrial fibrillation ICD-10: I48.91 ICD-9: 427.31 05/13/2015 Dyspnea, unspecified ICD-10: R06.00 ICD-9: 786.09 05/13/2015 Encounter for immunization ICD-10: Z23 ICD-9: V03.82 05/13/2015 Fecal smearing ICD-10: R15.1 ICD-9: 787.62 05/07/2015 Cystocele, unspecified ICD-10: N81.10 ICD-9: 618.01 05/07/2015 Bloating ICD-9: 787.3 03/23/2015 Atrial fibrillation ICD-9: 427.31 03/23/2015 ENCNTR LONG-ANTICOAG USE ICD-9: V58.61 03/09/2015 Abdominal pain ICD-9: 789.00 03/09/2015 HYPOTHYROIDISM ICD-9: 244.9 10/30/2014 HEMATURIA NOS ICD-9: 599.70 10/30/2014 Osteoporosis ICD-9: 733.00 07/11/2014 Need for pneumococcal vaccine ICD-9: V03.82 07/11/2014 Osteoarthritis ICD-9: 715.90 07/11/2014 ALLERGIC RHINITIS ICD-9: 477.9 07/11/2014 Dysuria ICD-9: 788.1 05/20/2014 Urge incontinence ICD-9: 788.31 05/20/2014 Other screening mammogram ICD-9: V76.12 05/14/2014 UTI ICD-9: 599.0 05/06/2014 ESSENTIAL HYPERTENSION ICD-9: 401.9 04/29/2014 Irritable bowel ICD-9: 564.1 03/05/2014 Esophageal reflux ICD-9: 530.81 01/29/2014 DIARRHEA ICD-9: 787.91 01/29/2014 Dyspnea ICD-9: 786.09 12/25/2013 MALAISE AND FATIGUE ICD-9: 780.79 12/25/2013 Bruising ICD-9: 924.9 08/15/2013 ENCNTR LONG-RX USE NEC ICD-9: V58.69 08/15/2013 URINARY FREQUENCY ICD-9: 788.41 07/29/2013 Encounter for monitoring digoxin therapy ICD-9: V58.83 05/15/2013 Dizziness and giddiness ICD-9: 780.4 04/23/2013 VACCIN FOR INFLUENZA ICD-9: V04.81 04/23/2013 PALPITATIONS ICD-9: 785.1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 chest congestion 09/12/2018 Respiratory cough 09/12/2018 Respiratory No dyspnea 09/12/2018 Gastrointestinal No constipation 09/12/2018 Gastrointestinal No diarrhea 09/12/2018 Gastrointestinal No nausea 09/12/2018 Gastrointestinal No vomiting 09/12/2018 Neurologic No alteration of consciousness 09/12/2018 Neurologic No mental status change 09/12/2018 Constitutional fatigue 09/12/2018 Constitutional No insomnia 09/12/2018 Constitutional No malaise 09/12/2018 Eyes No eye discharge 09/12/2018 Eyes No eye pain 09/12/2018 Ears/Nose/Throat/Neck No dizziness 09/12/2018 Ears/Nose/Throat/Neck No headache 09/12/2018 Cardiovascular claudication 09/12/2018 Respiratory No chest tightness 09/12/2018 Gastrointestinal No abdominal pain 09/12/2018 Gastrointestinal No gas and bloating 09/12/2018 Gastrointestinal No gastroesophageal reflux 09/12/2018 Musculoskeletal stiffness 09/12/2018 Musculoskeletal swelling 09/12/2018 Musculoskeletal arthralgia(s) 09/12/2018 Musculoskeletal back pain 09/12/2018 Constitutional No recent illness 08/14/2018 Constitutional No chills 08/14/2018 Constitutional fatigue 08/14/2018 Constitutional No insomnia 08/14/2018 Constitutional No malaise 08/14/2018 Eyes No eye discharge 08/14/2018 Eyes No eye pain 08/14/2018 Ears/Nose/Throat/Neck No dizziness 08/14/2018 Ears/Nose/Throat/Neck No headache 08/14/2018 Ears/Nose/Throat/Neck No sore throat 08/14/2018 Cardiovascular claudication 08/14/2018 Cardiovascular No dyspnea 08/14/2018 Respiratory No chest tightness 08/14/2018 Respiratory No cough 08/14/2018 Gastrointestinal No abdominal pain 08/14/2018 Gastrointestinal No constipation 08/14/2018 Gastrointestinal No diarrhea 08/14/2018 Gastrointestinal No gas and bloating 08/14/2018 Gastrointestinal No gastroesophageal reflux 08/14/2018 Musculoskeletal stiffness 08/14/2018 Musculoskeletal swelling 08/14/2018 Musculoskeletal arthralgia(s) 08/14/2018 Musculoskeletal back pain 08/14/2018 Dermatologic No erythema 08/14/2018 Neurologic No alteration of consciousness 08/14/2018 Neurologic No dizziness 08/14/2018 Neurologic No headache 08/14/2018 Psychiatric No anxiety 08/14/2018 Psychiatric No depression 08/14/2018 Dermatologic sores 08/14/2018 Constitutional No recent illness 07/26/2018 Constitutional No anorexia 07/26/2018 Constitutional No night sweats 07/26/2018 Constitutional No chills 07/26/2018 Constitutional No diaphoresis 07/26/2018 Constitutional fatigue 07/26/2018 Constitutional No fever 07/26/2018 Constitutional No insomnia 07/26/2018 Constitutional No malaise 07/26/2018 Eyes No eye discharge 07/26/2018 Eyes No eye pain 07/26/2018 Ears/Nose/Throat/Neck No dizziness 07/26/2018 Ears/Nose/Throat/Neck No headache 07/26/2018 Ears/Nose/Throat/Neck No sore throat 07/26/2018 Cardiovascular No dyspnea 07/26/2018 Respiratory No chest congestion 07/26/2018 Respiratory No chest tightness 07/26/2018 Respiratory No cigarette smoking 07/26/2018 Respiratory No cough 07/26/2018 Gastrointestinal No abdominal pain 07/26/2018 Gastrointestinal No constipation 07/26/2018 Gastrointestinal No diarrhea 07/26/2018 Gastrointestinal No gas and bloating 07/26/2018 Gastrointestinal No gastroesophageal reflux 07/26/2018 Genitourinary/Nephrology No anuria/oliguria 07/26/2018 Genitourinary/Nephrology No dysuria 07/26/2018 Musculoskeletal stiffness 07/26/2018 Musculoskeletal swelling 07/26/2018 Musculoskeletal arthralgia(s) 07/26/2018 Musculoskeletal back pain 07/26/2018 Dermatologic No erythema 07/26/2018 Dermatologic sores 07/26/2018 Neurologic No alteration of consciousness 07/26/2018 Neurologic No dizziness 07/26/2018 Neurologic No headache 07/26/2018 Psychiatric No anxiety 07/26/2018 Psychiatric No depression 07/26/2018 Cardiovascular claudication 07/26/2018 Constitutional No recent illness 06/04/2018 Constitutional No anorexia 06/04/2018 Constitutional No night sweats 06/04/2018 Constitutional No chills 06/04/2018 Constitutional No diaphoresis 06/04/2018 Constitutional fatigue 06/04/2018 Constitutional No fever 06/04/2018 Constitutional No insomnia 06/04/2018 Constitutional No malaise 06/04/2018 Eyes No eye discharge 06/04/2018 Eyes No eye pain 06/04/2018 Ears/Nose/Throat/Neck No dizziness 06/04/2018 Ears/Nose/Throat/Neck No headache 06/04/2018 Ears/Nose/Throat/Neck No sore throat 06/04/2018 Cardiovascular No dyspnea 06/04/2018 Respiratory No chest congestion 06/04/2018 Respiratory No chest tightness 06/04/2018 Respiratory No cigarette smoking 06/04/2018 Respiratory No cough 06/04/2018 Gastrointestinal No abdominal pain 06/04/2018 Gastrointestinal No constipation 06/04/2018 Gastrointestinal No diarrhea 06/04/2018 Gastrointestinal No gas and bloating 06/04/2018 Gastrointestinal No gastroesophageal reflux 06/04/2018 Genitourinary/Nephrology No anuria/oliguria 06/04/2018 Genitourinary/Nephrology No dysuria 06/04/2018 Musculoskeletal stiffness 06/04/2018 Musculoskeletal swelling 06/04/2018 Musculoskeletal arthralgia(s) 06/04/2018 Musculoskeletal back pain 06/04/2018 Dermatologic No erythema 06/04/2018 Neurologic No alteration of consciousness 06/04/2018 Neurologic No dizziness 06/04/2018 Neurologic No headache 06/04/2018 Psychiatric No anxiety 06/04/2018 Psychiatric No depression 06/04/2018 Dermatologic No sores 06/04/2018 Constitutional No recent illness 01/31/2018 Constitutional No anorexia 01/31/2018 Constitutional No night sweats 01/31/2018 Constitutional No chills 01/31/2018 Constitutional No diaphoresis 01/31/2018 Constitutional fatigue 01/31/2018 Constitutional No fever 01/31/2018 Constitutional No insomnia 01/31/2018 Constitutional No malaise 01/31/2018 Eyes No eye discharge 01/31/2018 Eyes No eye pain 01/31/2018 Ears/Nose/Throat/Neck No dizziness 01/31/2018 Ears/Nose/Throat/Neck No headache 01/31/2018 Ears/Nose/Throat/Neck No sore throat 01/31/2018 Cardiovascular No dyspnea 01/31/2018 Respiratory No chest congestion 01/31/2018 Respiratory No chest tightness 01/31/2018 Respiratory No cigarette smoking 01/31/2018 Respiratory No cough 01/31/2018 Gastrointestinal No abdominal pain 01/31/2018 Gastrointestinal No constipation 01/31/2018 Gastrointestinal No diarrhea 01/31/2018 Gastrointestinal No gas and bloating 01/31/2018 Gastrointestinal No gastroesophageal reflux 01/31/2018 Genitourinary/Nephrology No anuria/oliguria 01/31/2018 Genitourinary/Nephrology No dysuria 01/31/2018 Musculoskeletal stiffness 01/31/2018 Musculoskeletal swelling 01/31/2018 Musculoskeletal arthralgia(s) 01/31/2018 Musculoskeletal back pain 01/31/2018 Dermatologic erythema 01/31/2018 Dermatologic sores 01/31/2018 Neurologic No alteration of consciousness 01/31/2018 Neurologic No dizziness 01/31/2018 Neurologic No headache 01/31/2018 Psychiatric No anxiety 01/31/2018 Psychiatric No depression 01/31/2018 Constitutional No recent illness 01/17/2018 Constitutional No chills 01/17/2018 Constitutional No diaphoresis 01/17/2018 Constitutional No fever 01/17/2018 Eyes No eye erythema 01/17/2018 Ears/Nose/Throat/Neck No nasal discharge 01/17/2018 Cardiovascular No chest pain/pressure 01/17/2018 Cardiovascular No dyspnea 01/17/2018 Respiratory No cough 01/17/2018 Respiratory No dyspnea 01/17/2018 Neurologic No alteration of consciousness 01/17/2018 Neurologic No mental status change 01/17/2018 Constitutional recent illness 12/14/2017 Constitutional No anorexia 12/14/2017 Constitutional No night sweats 12/14/2017 Constitutional No chills 12/14/2017 Constitutional No diaphoresis 12/14/2017 Constitutional fatigue 12/14/2017 Constitutional No fever 12/14/2017 Constitutional No insomnia 12/14/2017 Constitutional No malaise 12/14/2017 Eyes No eye discharge 12/14/2017 Eyes No eye pain 12/14/2017 Ears/Nose/Throat/Neck No dizziness 12/14/2017 Ears/Nose/Throat/Neck No headache 12/14/2017 Ears/Nose/Throat/Neck No sore throat 12/14/2017 Cardiovascular No dyspnea 12/14/2017 Respiratory chest congestion 12/14/2017 Respiratory No chest tightness 12/14/2017 Respiratory No cigarette smoking 12/14/2017 Respiratory cough 12/14/2017 Gastrointestinal No abdominal pain 12/14/2017 Gastrointestinal No constipation 12/14/2017 Gastrointestinal No diarrhea 12/14/2017 Gastrointestinal No gas and bloating 12/14/2017 Gastrointestinal No gastroesophageal reflux 12/14/2017 Genitourinary/Nephrology No anuria/oliguria 12/14/2017 Genitourinary/Nephrology No dysuria 12/14/2017 Musculoskeletal stiffness 12/14/2017 Musculoskeletal swelling 12/14/2017 Musculoskeletal arthralgia(s) 12/14/2017 Musculoskeletal back pain 12/14/2017 Dermatologic erythema 12/14/2017 Neurologic No alteration of consciousness 12/14/2017 Neurologic No dizziness 12/14/2017 Neurologic No headache 12/14/2017 Psychiatric No anxiety 12/14/2017 Psychiatric No depression 12/14/2017 Constitutional recent illness 12/07/2017 Constitutional No chills 12/07/2017 Constitutional No diaphoresis 12/07/2017 Constitutional fatigue 12/07/2017 Constitutional fever 12/07/2017 Eyes No eye discharge 12/07/2017 Eyes No eye pain 12/07/2017 Ears/Nose/Throat/Neck No dizziness 12/07/2017 Ears/Nose/Throat/Neck No headache 12/07/2017 Ears/Nose/Throat/Neck sore throat 12/07/2017 Cardiovascular No dyspnea 12/07/2017 Respiratory chest congestion 12/07/2017 Respiratory cough 12/07/2017 Gastrointestinal No abdominal pain 12/07/2017 Gastrointestinal No constipation 12/07/2017 Gastrointestinal No diarrhea 12/07/2017 Musculoskeletal stiffness 12/07/2017 Musculoskeletal swelling 12/07/2017 Musculoskeletal arthralgia(s) 12/07/2017 Musculoskeletal back pain 12/07/2017 Neurologic No alteration of consciousness 12/07/2017 Ears/Nose/Throat/Neck nasal allergies 12/07/2017 Ears/Nose/Throat/Neck nasal discharge 12/07/2017 Ears/Nose/Throat/Neck postnasal drip 12/07/2017 Cardiovascular No chest pain/pressure 12/07/2017 Respiratory No dyspnea 12/07/2017 Neurologic No mental status change 12/07/2017 Constitutional No recent illness 11/14/2017 Constitutional No anorexia 11/14/2017 Constitutional No night sweats 11/14/2017 Constitutional No chills 11/14/2017 Constitutional No diaphoresis 11/14/2017 Constitutional fatigue 11/14/2017 Constitutional No fever 11/14/2017 Constitutional No insomnia 11/14/2017 Constitutional No malaise 11/14/2017 Eyes No eye discharge 11/14/2017 Eyes No eye pain 11/14/2017 Ears/Nose/Throat/Neck No dizziness 11/14/2017 Ears/Nose/Throat/Neck No headache 11/14/2017 Ears/Nose/Throat/Neck No sore throat 11/14/2017 Cardiovascular No dyspnea 11/14/2017 Respiratory No chest congestion 11/14/2017 Respiratory No chest tightness 11/14/2017 Respiratory No cigarette smoking 11/14/2017 Respiratory No cough 11/14/2017 Gastrointestinal No abdominal pain 11/14/2017 Gastrointestinal No constipation 11/14/2017 Gastrointestinal No diarrhea 11/14/2017 Gastrointestinal No gas and bloating 11/14/2017 Gastrointestinal No gastroesophageal reflux 11/14/2017 Genitourinary/Nephrology No anuria/oliguria 11/14/2017 Genitourinary/Nephrology No dysuria 11/14/2017 Musculoskeletal stiffness 11/14/2017 Musculoskeletal swelling 11/14/2017 Musculoskeletal arthralgia(s) 11/14/2017 Musculoskeletal back pain 11/14/2017 Dermatologic erythema 11/14/2017 Dermatologic sores 11/14/2017 Neurologic No alteration of consciousness 11/14/2017 Neurologic No dizziness 11/14/2017 Neurologic No headache 11/14/2017 Psychiatric No anxiety 11/14/2017 Psychiatric No depression 11/14/2017 Constitutional No recent illness 03/27/2017 Constitutional No anorexia 03/27/2017 Constitutional No night sweats 03/27/2017 Constitutional No chills 03/27/2017 Constitutional No diaphoresis 03/27/2017 Constitutional fatigue 03/27/2017 Constitutional No fever 03/27/2017 Constitutional No insomnia 03/27/2017 Constitutional No malaise 03/27/2017 Eyes No eye discharge 03/27/2017 Eyes No eye pain 03/27/2017 Ears/Nose/Throat/Neck No dizziness 03/27/2017 Ears/Nose/Throat/Neck No headache 03/27/2017 Ears/Nose/Throat/Neck No sore throat 03/27/2017 Cardiovascular dyspnea 03/27/2017 Respiratory No chest congestion 03/27/2017 Respiratory No chest tightness 03/27/2017 Respiratory No cigarette smoking 03/27/2017 Respiratory No cough 03/27/2017 Gastrointestinal No abdominal pain 03/27/2017 Gastrointestinal No constipation 03/27/2017 Gastrointestinal No diarrhea 03/27/2017 Gastrointestinal No gas and bloating 03/27/2017 Gastrointestinal No gastroesophageal reflux 03/27/2017 Genitourinary/Nephrology No anuria/oliguria 03/27/2017 Genitourinary/Nephrology No dysuria 03/27/2017 Musculoskeletal stiffness 03/27/2017 Musculoskeletal No swelling 03/27/2017 Musculoskeletal arthralgia(s) 03/27/2017 Musculoskeletal No back pain 03/27/2017 Dermatologic No erythema 03/27/2017 Neurologic No alteration of consciousness 03/27/2017 Neurologic No dizziness 03/27/2017 Neurologic No headache 03/27/2017 Psychiatric No anxiety 03/27/2017 Psychiatric No depression 03/27/2017 Cardiovascular exercise intolerance 03/27/2017 Respiratory dyspnea on exertion 03/27/2017 Dermatologic No sores 03/27/2017 Constitutional No recent illness 01/23/2017 Constitutional No chills 01/23/2017 Constitutional No diaphoresis 01/23/2017 Constitutional No fever 01/23/2017 Eyes No eye erythema 01/23/2017 Ears/Nose/Throat/Neck No nasal allergies 01/23/2017 Ears/Nose/Throat/Neck No nasal discharge 01/23/2017 Cardiovascular No chest pain/pressure 01/23/2017 Respiratory No cough 01/23/2017 Respiratory No dyspnea 01/23/2017 Neurologic No alteration of consciousness 01/23/2017 Neurologic No mental status change 01/23/2017 Constitutional No recent illness 01/19/2017 Constitutional No anorexia 01/19/2017 Constitutional No night sweats 01/19/2017 Constitutional No chills 01/19/2017 Constitutional No diaphoresis 01/19/2017 Constitutional fatigue 01/19/2017 Constitutional No fever 01/19/2017 Constitutional No insomnia 01/19/2017 Constitutional No malaise 01/19/2017 Eyes No eye discharge 01/19/2017 Eyes No eye pain 01/19/2017 Ears/Nose/Throat/Neck No dizziness 01/19/2017 Ears/Nose/Throat/Neck No headache 01/19/2017 Ears/Nose/Throat/Neck No sore throat 01/19/2017 Cardiovascular No dyspnea 01/19/2017 Respiratory No chest congestion 01/19/2017 Respiratory No chest tightness 01/19/2017 Respiratory No cigarette smoking 01/19/2017 Respiratory No cough 01/19/2017 Gastrointestinal No abdominal pain 01/19/2017 Gastrointestinal No constipation 01/19/2017 Gastrointestinal No diarrhea 01/19/2017 Gastrointestinal No gas and bloating 01/19/2017 Gastrointestinal No gastroesophageal reflux 01/19/2017 Genitourinary/Nephrology No anuria/oliguria 01/19/2017 Genitourinary/Nephrology No dysuria 01/19/2017 Musculoskeletal stiffness 01/19/2017 Musculoskeletal swelling 01/19/2017 Musculoskeletal arthralgia(s) 01/19/2017 Musculoskeletal back pain 01/19/2017 Dermatologic erythema 01/19/2017 Dermatologic sores 01/19/2017 Neurologic No alteration of consciousness 01/19/2017 Neurologic No dizziness 01/19/2017 Neurologic No headache 01/19/2017 Psychiatric No anxiety 01/19/2017 Psychiatric No depression 01/19/2017 Constitutional recent illness 11/29/2016 Constitutional No chills 11/29/2016 Constitutional No fatigue 11/29/2016 Constitutional No fever 11/29/2016 Eyes No eye discharge 11/29/2016 Eyes No eye erythema 11/29/2016 Ears/Nose/Throat/Neck nasal allergies 11/29/2016 Ears/Nose/Throat/Neck No nasal discharge 11/29/2016 Ears/Nose/Throat/Neck No sinus congestion 11/29/2016 Ears/Nose/Throat/Neck sore throat 11/29/2016 Cardiovascular No chest pain/pressure 11/29/2016 Cardiovascular No dyspnea 11/29/2016 Respiratory productive sputum 11/29/2016 Respiratory No chest congestion 11/29/2016 Respiratory cough 11/29/2016 Gastrointestinal No abdominal pain 11/29/2016 Gastrointestinal No constipation 11/29/2016 Gastrointestinal No diarrhea 11/29/2016 Dermatologic No rash 11/29/2016 Neurologic No alteration of consciousness 11/29/2016 Neurologic No mental status change 11/29/2016 Constitutional recent illness 11/23/2016 Constitutional No chills 11/23/2016 Constitutional No fever 11/23/2016 Eyes No eye discharge 11/23/2016 Eyes No eye erythema 11/23/2016 Ears/Nose/Throat/Neck No nasal discharge 11/23/2016 Ears/Nose/Throat/Neck No sinus congestion 11/23/2016 Ears/Nose/Throat/Neck sore throat 11/23/2016 Cardiovascular No chest pain/pressure 11/23/2016 Cardiovascular No dyspnea 11/23/2016 Respiratory productive sputum 11/23/2016 Respiratory No chest congestion 11/23/2016 Respiratory cough 11/23/2016 Gastrointestinal No abdominal pain 11/23/2016 Gastrointestinal No constipation 11/23/2016 Gastrointestinal No diarrhea 11/23/2016 Dermatologic No rash 11/23/2016 Neurologic No alteration of consciousness 11/23/2016 Constitutional No fatigue 11/23/2016 Ears/Nose/Throat/Neck nasal allergies 11/23/2016 Neurologic No mental status change 11/23/2016 Constitutional recent illness 11/21/2016 Constitutional No anorexia 11/21/2016 Constitutional No night sweats 11/21/2016 Constitutional chills 11/21/2016 Constitutional No diaphoresis 11/21/2016 Constitutional No fatigue 11/21/2016 Constitutional No fever 11/21/2016 Constitutional No insomnia 11/21/2016 Constitutional No malaise 11/21/2016 Constitutional No weight loss 11/21/2016 Constitutional No weight gain 11/21/2016 Eyes No eye discharge 11/21/2016 Eyes No eye erythema 11/21/2016 Ears/Nose/Throat/Neck No dizziness 11/21/2016 Ears/Nose/Throat/Neck No headache 11/21/2016 Ears/Nose/Throat/Neck No nasal discharge 11/21/2016 Ears/Nose/Throat/Neck No otalgia 11/21/2016 Ears/Nose/Throat/Neck No sinus congestion 11/21/2016 Ears/Nose/Throat/Neck sore throat 11/21/2016 Cardiovascular No chest pain/pressure 11/21/2016 Cardiovascular No dyspnea 11/21/2016 Respiratory No productive sputum 11/21/2016 Respiratory No chest congestion 11/21/2016 Respiratory cough 11/21/2016 Gastrointestinal No abdominal pain 11/21/2016 Gastrointestinal No constipation 11/21/2016 Gastrointestinal No diarrhea 11/21/2016 Genitourinary/Nephrology No dysuria 11/21/2016 Musculoskeletal No joint complaint 11/21/2016 Dermatologic No rash 11/21/2016 Dermatologic No sores 11/21/2016 Neurologic No alteration of consciousness 11/21/2016 Hematologic/Lymphatic abnormal bleeding and bruising 11/08/2016 Constitutional No recent illness 11/02/2016 Constitutional No anorexia 11/02/2016 Constitutional No night sweats 11/02/2016 Constitutional No chills 11/02/2016 Constitutional No diaphoresis 11/02/2016 Constitutional No fatigue 11/02/2016 Constitutional No fever 11/02/2016 Constitutional No insomnia 11/02/2016 Constitutional No malaise 11/02/2016 Eyes No eye discharge 11/02/2016 Eyes No eye pain 11/02/2016 Ears/Nose/Throat/Neck No dizziness 11/02/2016 Ears/Nose/Throat/Neck No headache 11/02/2016 Ears/Nose/Throat/Neck No sore throat 11/02/2016 Cardiovascular chest pain/pressure 11/02/2016 Cardiovascular No dyspnea 11/02/2016 Respiratory No chest congestion 11/02/2016 Respiratory No chest tightness 11/02/2016 Respiratory No cigarette smoking 11/02/2016 Respiratory No cough 11/02/2016 Gastrointestinal No abdominal pain 11/02/2016 Gastrointestinal No constipation 11/02/2016 Gastrointestinal No diarrhea 11/02/2016 Gastrointestinal No gas and bloating 11/02/2016 Gastrointestinal No gastroesophageal reflux 11/02/2016 Genitourinary/Nephrology No anuria/oliguria 11/02/2016 Genitourinary/Nephrology No dysuria 11/02/2016 Musculoskeletal stiffness 11/02/2016 Musculoskeletal swelling 11/02/2016 Musculoskeletal arthralgia(s) 11/02/2016 Musculoskeletal back pain 11/02/2016 Dermatologic erythema 11/02/2016 Dermatologic sores 11/02/2016 Neurologic No alteration of consciousness 11/02/2016 Neurologic No dizziness 11/02/2016 Neurologic No headache 11/02/2016 Psychiatric No anxiety 11/02/2016 Psychiatric No depression 11/02/2016 Endocrine No polydipsia 11/02/2016 Endocrine No polyuria 11/02/2016 Hematologic/Lymphatic abnormal bleeding and bruising 11/02/2016 Constitutional No recent illness 10/27/2016 Constitutional No anorexia 10/27/2016 Constitutional No night sweats 10/27/2016 Constitutional No chills 10/27/2016 Constitutional No diaphoresis 10/27/2016 Constitutional No fatigue 10/27/2016 Constitutional No fever 10/27/2016 Constitutional No insomnia 10/27/2016 Constitutional No malaise 10/27/2016 Constitutional No weight loss 10/27/2016 Constitutional No weight gain 10/27/2016 Eyes No eye discharge 10/27/2016 Eyes No eye pain 10/27/2016 Ears/Nose/Throat/Neck No dizziness 10/27/2016 Ears/Nose/Throat/Neck No headache 10/27/2016 Cardiovascular chest pain/pressure 10/27/2016 Cardiovascular No dyspnea 10/27/2016 Respiratory No chest congestion 10/27/2016 Respiratory No chest tightness 10/27/2016 Respiratory No cigarette smoking 10/27/2016 Respiratory No cough 10/27/2016 Gastrointestinal No abdominal pain 10/27/2016 Gastrointestinal No gas and bloating 10/27/2016 Gastrointestinal No gastroesophageal reflux 10/27/2016 Gastrointestinal No constipation 10/27/2016 Gastrointestinal No diarrhea 10/27/2016 Genitourinary/Nephrology No anuria/oliguria 10/27/2016 Genitourinary/Nephrology No dysuria 10/27/2016 Musculoskeletal stiffness 10/27/2016 Musculoskeletal arthralgia(s) 10/27/2016 Musculoskeletal swelling 10/27/2016 Musculoskeletal back pain 10/27/2016 Neurologic No dizziness 10/27/2016 Neurologic No alteration of consciousness 10/27/2016 Neurologic No headache 10/27/2016 Psychiatric No anxiety 10/27/2016 Psychiatric No depression 10/27/2016 Endocrine No polydipsia 10/27/2016 Endocrine No polyuria 10/27/2016 Hematologic/Lymphatic No abnormal ecchymoses 10/27/2016 Constitutional No obesity 10/27/2016 Ears/Nose/Throat/Neck No sore throat 10/27/2016 Dermatologic erythema 10/27/2016 Dermatologic sores 10/27/2016 Hematologic/Lymphatic abnormal bleeding and bruising 10/27/2016 Constitutional No anorexia 08/31/2016 Constitutional No night sweats 08/31/2016 Constitutional No chills 08/31/2016 Constitutional No diaphoresis 08/31/2016 Constitutional No fever 08/31/2016 Ears/Nose/Throat/Neck No dizziness 08/31/2016 Ears/Nose/Throat/Neck No headache 08/31/2016 Ears/Nose/Throat/Neck No nasal allergies 08/31/2016 Ears/Nose/Throat/Neck No nasal discharge 08/31/2016 Cardiovascular hypertension 08/31/2016 Respiratory No productive sputum 08/31/2016 Respiratory No chest congestion 08/31/2016 Respiratory No cough 08/31/2016 Gastrointestinal hemorrhoids 08/31/2016 Gastrointestinal No constipation 08/31/2016 Gastrointestinal No diarrhea 08/31/2016 Gastrointestinal gastroesophageal reflux 08/31/2016 Gastrointestinal No nausea 08/31/2016 Gastrointestinal No vomiting 08/31/2016 Genitourinary/Nephrology No dysuria 08/31/2016 Genitourinary/Nephrology No urinary retention/hesitancy 08/31/2016 Genitourinary/Nephrology No vaginal discharge 08/31/2016 Musculoskeletal No stiffness 08/31/2016 Musculoskeletal No swelling 08/31/2016 Musculoskeletal No muscle weakness 08/31/2016 Musculoskeletal No myalgias 08/31/2016 Dermatologic No rash 08/31/2016 Psychiatric No anxiety 08/31/2016 Psychiatric No depression 08/31/2016 Constitutional No anorexia 07/27/2016 Constitutional No night sweats 07/27/2016 Constitutional No chills 07/27/2016 Constitutional No diaphoresis 07/27/2016 Constitutional No fever 07/27/2016 Ears/Nose/Throat/Neck No dizziness 07/27/2016 Ears/Nose/Throat/Neck No headache 07/27/2016 Ears/Nose/Throat/Neck No nasal allergies 07/27/2016 Ears/Nose/Throat/Neck No nasal discharge 07/27/2016 Cardiovascular hypertension 07/27/2016 Respiratory No productive sputum 07/27/2016 Respiratory No chest congestion 07/27/2016 Respiratory cough 07/27/2016 Gastrointestinal hemorrhoids 07/27/2016 Gastrointestinal No constipation 07/27/2016 Gastrointestinal No diarrhea 07/27/2016 Gastrointestinal gastroesophageal reflux 07/27/2016 Gastrointestinal No nausea 07/27/2016 Gastrointestinal No vomiting 07/27/2016 Genitourinary/Nephrology No dysuria 07/27/2016 Genitourinary/Nephrology No urinary retention/hesitancy 07/27/2016 Genitourinary/Nephrology No vaginal discharge 07/27/2016 Musculoskeletal No stiffness 07/27/2016 Musculoskeletal No swelling 07/27/2016 Musculoskeletal No muscle weakness 07/27/2016 Musculoskeletal No myalgias 07/27/2016 Dermatologic No rash 07/27/2016 Psychiatric No anxiety 07/27/2016 Psychiatric No depression 07/27/2016 Eyes No blindness 07/27/2016 Eyes No vision change 07/27/2016 Constitutional No anorexia 06/23/2016 Constitutional No night sweats 06/23/2016 Constitutional No chills 06/23/2016 Constitutional No diaphoresis 06/23/2016 Constitutional No fever 06/23/2016 Ears/Nose/Throat/Neck No dizziness 06/23/2016 Ears/Nose/Throat/Neck No headache 06/23/2016 Ears/Nose/Throat/Neck No nasal allergies 06/23/2016 Ears/Nose/Throat/Neck No nasal discharge 06/23/2016 Cardiovascular hypertension 06/23/2016 Respiratory No productive sputum 06/23/2016 Respiratory No chest congestion 06/23/2016 Respiratory No cough 06/23/2016 Gastrointestinal hemorrhoids 06/23/2016 Gastrointestinal No constipation 06/23/2016 Gastrointestinal No diarrhea 06/23/2016 Gastrointestinal gastroesophageal reflux 06/23/2016 Gastrointestinal No nausea 06/23/2016 Gastrointestinal No vomiting 06/23/2016 Genitourinary/Nephrology No dysuria 06/23/2016 Genitourinary/Nephrology No urinary retention/hesitancy 06/23/2016 Genitourinary/Nephrology No vaginal discharge 06/23/2016 Musculoskeletal No stiffness 06/23/2016 Musculoskeletal No swelling 06/23/2016 Musculoskeletal No muscle weakness 06/23/2016 Musculoskeletal No myalgias 06/23/2016 Dermatologic No rash 06/23/2016 Psychiatric No anxiety 06/23/2016 Psychiatric No depression 06/23/2016 Constitutional No anorexia 06/09/2016 Constitutional No night sweats 06/09/2016 Constitutional No chills 06/09/2016 Constitutional No diaphoresis 06/09/2016 Constitutional No fever 06/09/2016 Eyes No eye discharge 06/09/2016 Ears/Nose/Throat/Neck No dizziness 06/09/2016 Ears/Nose/Throat/Neck No headache 06/09/2016 Ears/Nose/Throat/Neck No nasal allergies 06/09/2016 Ears/Nose/Throat/Neck No nasal discharge 06/09/2016 Cardiovascular hypertension 06/09/2016 Respiratory No productive sputum 06/09/2016 Respiratory No chest congestion 06/09/2016 Respiratory No cough 06/09/2016 Gastrointestinal No constipation 06/09/2016 Gastrointestinal No diarrhea 06/09/2016 Gastrointestinal gastroesophageal reflux 06/09/2016 Gastrointestinal No nausea 06/09/2016 Gastrointestinal No vomiting 06/09/2016 Genitourinary/Nephrology No dysuria 06/09/2016 Genitourinary/Nephrology No urinary retention/hesitancy 06/09/2016 Genitourinary/Nephrology No vaginal discharge 06/09/2016 Musculoskeletal No stiffness 06/09/2016 Musculoskeletal No swelling 06/09/2016 Musculoskeletal No muscle weakness 06/09/2016 Musculoskeletal No myalgias 06/09/2016 Dermatologic No rash 06/09/2016 Psychiatric No anxiety 06/09/2016 Psychiatric No depression 06/09/2016 Constitutional recent illness 06/09/2016 Constitutional fatigue 06/09/2016 Cardiovascular edema 06/09/2016 Cardiovascular fatigue 06/09/2016 Cardiovascular dyspnea 06/09/2016 Respiratory dyspnea on exertion 06/09/2016 Constitutional No anorexia 05/25/2016 Constitutional No night sweats 05/25/2016 Constitutional No chills 05/25/2016 Constitutional No diaphoresis 05/25/2016 Constitutional No fever 05/25/2016 Ears/Nose/Throat/Neck No dizziness 05/25/2016 Ears/Nose/Throat/Neck No headache 05/25/2016 Ears/Nose/Throat/Neck No nasal allergies 05/25/2016 Ears/Nose/Throat/Neck No nasal discharge 05/25/2016 Cardiovascular hypertension 05/25/2016 Respiratory No productive sputum 05/25/2016 Respiratory No chest congestion 05/25/2016 Respiratory No cough 05/25/2016 Gastrointestinal hemorrhoids 05/25/2016 Gastrointestinal No constipation 05/25/2016 Gastrointestinal No diarrhea 05/25/2016 Gastrointestinal gastroesophageal reflux 05/25/2016 Gastrointestinal No nausea 05/25/2016 Gastrointestinal No vomiting 05/25/2016 Genitourinary/Nephrology No dysuria 05/25/2016 Genitourinary/Nephrology No urinary retention/hesitancy 05/25/2016 Genitourinary/Nephrology No vaginal discharge 05/25/2016 Musculoskeletal No stiffness 05/25/2016 Musculoskeletal No swelling 05/25/2016 Musculoskeletal No muscle weakness 05/25/2016 Musculoskeletal No myalgias 05/25/2016 Dermatologic No rash 05/25/2016 Psychiatric No anxiety 05/25/2016 Psychiatric No depression 05/25/2016 Constitutional No anorexia 05/17/2016 Constitutional No night sweats 05/17/2016 Constitutional No chills 05/17/2016 Constitutional No diaphoresis 05/17/2016 Constitutional No fever 05/17/2016 Ears/Nose/Throat/Neck No dizziness 05/17/2016 Ears/Nose/Throat/Neck No headache 05/17/2016 Ears/Nose/Throat/Neck No nasal allergies 05/17/2016 Ears/Nose/Throat/Neck No nasal discharge 05/17/2016 Cardiovascular hypertension 05/17/2016 Respiratory No productive sputum 05/17/2016 Respiratory No chest congestion 05/17/2016 Respiratory No cough 05/17/2016 Gastrointestinal hemorrhoids 05/17/2016 Gastrointestinal No constipation 05/17/2016 Gastrointestinal No diarrhea 05/17/2016 Gastrointestinal gastroesophageal reflux 05/17/2016 Gastrointestinal No nausea 05/17/2016 Gastrointestinal No vomiting 05/17/2016 Genitourinary/Nephrology No dysuria 05/17/2016 Genitourinary/Nephrology No urinary retention/hesitancy 05/17/2016 Genitourinary/Nephrology No vaginal discharge 05/17/2016 Musculoskeletal No stiffness 05/17/2016 Musculoskeletal No swelling 05/17/2016 Musculoskeletal No muscle weakness 05/17/2016 Musculoskeletal No myalgias 05/17/2016 Dermatologic No rash 05/17/2016 Psychiatric No anxiety 05/17/2016 Psychiatric No depression 05/17/2016 Gastrointestinal abdominal pain 05/17/2016 Gastrointestinal gas and bloating 05/17/2016 Constitutional No anorexia 03/24/2016 Constitutional No night sweats 03/24/2016 Constitutional No chills 03/24/2016 Constitutional No diaphoresis 03/24/2016 Constitutional No fever 03/24/2016 Ears/Nose/Throat/Neck No dizziness 03/24/2016 Ears/Nose/Throat/Neck No headache 03/24/2016 Ears/Nose/Throat/Neck No nasal allergies 03/24/2016 Ears/Nose/Throat/Neck No nasal discharge 03/24/2016 Cardiovascular hypertension 03/24/2016 Respiratory No productive sputum 03/24/2016 Respiratory No chest congestion 03/24/2016 Respiratory No cough 03/24/2016 Gastrointestinal No constipation 03/24/2016 Gastrointestinal No diarrhea 03/24/2016 Gastrointestinal gastroesophageal reflux 03/24/2016 Gastrointestinal No nausea 03/24/2016 Gastrointestinal No vomiting 03/24/2016 Genitourinary/Nephrology No dysuria 03/24/2016 Genitourinary/Nephrology No urinary retention/hesitancy 03/24/2016 Genitourinary/Nephrology No vaginal discharge 03/24/2016 Musculoskeletal No stiffness 03/24/2016 Musculoskeletal No swelling 03/24/2016 Musculoskeletal No muscle weakness 03/24/2016 Musculoskeletal No myalgias 03/24/2016 Dermatologic No rash 03/24/2016 Psychiatric No anxiety 03/24/2016 Psychiatric No depression 03/24/2016 Gastrointestinal hemorrhoids 03/24/2016 Constitutional No anorexia 02/02/2016 Constitutional No night sweats 02/02/2016 Constitutional No chills 02/02/2016 Constitutional No diaphoresis 02/02/2016 Constitutional No fever 02/02/2016 Eyes No eye discharge 02/02/2016 Ears/Nose/Throat/Neck No dizziness 02/02/2016 Ears/Nose/Throat/Neck No headache 02/02/2016 Ears/Nose/Throat/Neck No nasal allergies 02/02/2016 Ears/Nose/Throat/Neck No nasal discharge 02/02/2016 Cardiovascular hypertension 02/02/2016 Respiratory No productive sputum 02/02/2016 Respiratory No chest congestion 02/02/2016 Respiratory No cough 02/02/2016 Gastrointestinal hemorrhoids 02/02/2016 Gastrointestinal No constipation 02/02/2016 Gastrointestinal No diarrhea 02/02/2016 Gastrointestinal gastroesophageal reflux 02/02/2016 Gastrointestinal No nausea 02/02/2016 Gastrointestinal No vomiting 02/02/2016 Genitourinary/Nephrology No dysuria 02/02/2016 Genitourinary/Nephrology No urinary retention/hesitancy 02/02/2016 Genitourinary/Nephrology No vaginal discharge 02/02/2016 Musculoskeletal No stiffness 02/02/2016 Musculoskeletal No swelling 02/02/2016 Musculoskeletal No muscle weakness 02/02/2016 Musculoskeletal No myalgias 02/02/2016 Dermatologic No rash 02/02/2016 Psychiatric No anxiety 02/02/2016 Psychiatric No depression 02/02/2016 Constitutional No anorexia 2016 Constitutional No night sweats 2016 Constitutional No chills 2016 Constitutional No diaphoresis 2016 Constitutional No fever 2016 Eyes No eye discharge 2016 Ears/Nose/Throat/Neck No dizziness 2016 Ears/Nose/Throat/Neck No headache 2016 Ears/Nose/Throat/Neck No nasal allergies 2016 Ears/Nose/Throat/Neck No nasal discharge 2016 Cardiovascular hypertension 2016 Respiratory No productive sputum 2016 Respiratory No chest congestion 2016 Respiratory No cough 2016 Gastrointestinal No constipation 2016 Gastrointestinal No diarrhea 2016 Gastrointestinal gastroesophageal reflux 2016 Gastrointestinal No nausea 2016 Gastrointestinal No vomiting 2016 Genitourinary/Nephrology No dysuria 2016 Genitourinary/Nephrology No urinary retention/hesitancy 2016 Genitourinary/Nephrology No vaginal discharge 2016 Musculoskeletal No stiffness 2016 Musculoskeletal No swelling 2016 Musculoskeletal No muscle weakness 2016 Musculoskeletal No myalgias 2016 Dermatologic No rash 2016 Psychiatric No anxiety 2016 Psychiatric No depression 2016 Gastrointestinal hemorrhoids 2016 Constitutional recent illness 12/21/2015 Constitutional No anorexia 12/21/2015 Constitutional No night sweats 12/21/2015 Constitutional No chills 12/21/2015 Constitutional No diaphoresis 12/21/2015 Constitutional No fatigue 12/21/2015 Constitutional fever 12/21/2015 Constitutional No insomnia 12/21/2015 Constitutional No malaise 12/21/2015 Constitutional No weight loss 12/21/2015 Constitutional No weight gain 12/21/2015 Eyes eye discharge 12/21/2015 Eyes No eye erythema 12/21/2015 Ears/Nose/Throat/Neck nasal allergies 12/21/2015 Ears/Nose/Throat/Neck nasal discharge 12/21/2015 Ears/Nose/Throat/Neck No otalgia 12/21/2015 Ears/Nose/Throat/Neck sinus congestion 12/21/2015 Ears/Nose/Throat/Neck No sore throat 12/21/2015 Cardiovascular No chest pain/pressure 12/21/2015 Respiratory cough 12/21/2015 Respiratory No productive sputum 12/21/2015 Respiratory No chest congestion 12/21/2015 Gastrointestinal No abdominal pain 12/21/2015 Genitourinary/Nephrology No dysuria 12/21/2015 Musculoskeletal No joint complaint 12/21/2015 Dermatologic No rash 12/21/2015 Neurologic No alteration of consciousness 12/21/2015 Constitutional No anorexia 11/03/2015 Constitutional No night sweats 11/03/2015 Constitutional No chills 11/03/2015 Constitutional No diaphoresis 11/03/2015 Constitutional No fever 11/03/2015 Eyes No eye discharge 11/03/2015 Ears/Nose/Throat/Neck No dizziness 11/03/2015 Ears/Nose/Throat/Neck No headache 11/03/2015 Ears/Nose/Throat/Neck No nasal allergies 11/03/2015 Ears/Nose/Throat/Neck No nasal discharge 11/03/2015 Cardiovascular hypertension 11/03/2015 Respiratory No productive sputum 11/03/2015 Respiratory No chest congestion 11/03/2015 Respiratory No cough 11/03/2015 Gastrointestinal No constipation 11/03/2015 Gastrointestinal No diarrhea 11/03/2015 Gastrointestinal gastroesophageal reflux 11/03/2015 Gastrointestinal No nausea 11/03/2015 Gastrointestinal No vomiting 11/03/2015 Genitourinary/Nephrology No dysuria 11/03/2015 Genitourinary/Nephrology No urinary retention/hesitancy 11/03/2015 Genitourinary/Nephrology No vaginal discharge 11/03/2015 Musculoskeletal No stiffness 11/03/2015 Musculoskeletal No swelling 11/03/2015 Musculoskeletal No muscle weakness 11/03/2015 Musculoskeletal No myalgias 11/03/2015 Dermatologic No rash 11/03/2015 Psychiatric No anxiety 11/03/2015 Psychiatric No depression 11/03/2015 Constitutional No anorexia 10/19/2015 Constitutional No chills 10/19/2015 Constitutional No diaphoresis 10/19/2015 Constitutional fatigue 10/19/2015 Constitutional No fever 10/19/2015 Eyes No eye discharge 10/19/2015 Cardiovascular No chest pain/pressure 10/19/2015 Cardiovascular No dyspnea 10/19/2015 Respiratory No productive sputum 10/19/2015 Respiratory No chest congestion 10/19/2015 Respiratory No cough 10/19/2015 Gastrointestinal No constipation 10/19/2015 Gastrointestinal No diarrhea 10/19/2015 Gastrointestinal No nausea 10/19/2015 Gastrointestinal No vomiting 10/19/2015 Musculoskeletal No joint complaint 10/19/2015 Dermatologic No rash 10/19/2015 Neurologic No alteration of consciousness 10/19/2015 Neurologic No mental status change 10/19/2015 Psychiatric No anxiety 10/19/2015 Psychiatric No depression 10/19/2015 Ears/Nose/Throat/Neck cerumen 10/19/2015 Ears/Nose/Throat/Neck No nasal allergies 10/19/2015 Ears/Nose/Throat/Neck No nasal discharge 10/19/2015 Constitutional No anorexia 10/13/2015 Constitutional No chills 10/13/2015 Constitutional No diaphoresis 10/13/2015 Constitutional fatigue 10/13/2015 Constitutional No fever 10/13/2015 Eyes No eye discharge 10/13/2015 Ears/Nose/Throat/Neck nasal allergies 10/13/2015 Ears/Nose/Throat/Neck nasal discharge 10/13/2015 Cardiovascular hypertension 10/13/2015 Respiratory No productive sputum 10/13/2015 Respiratory No chest congestion 10/13/2015 Respiratory No cough 10/13/2015 Gastrointestinal No constipation 10/13/2015 Gastrointestinal No diarrhea 10/13/2015 Gastrointestinal No nausea 10/13/2015 Gastrointestinal No vomiting 10/13/2015 Musculoskeletal No myalgias 10/13/2015 Dermatologic No rash 10/13/2015 Psychiatric No anxiety 10/13/2015 Psychiatric No depression 10/13/2015 Ears/Nose/Throat/Neck otalgia 10/13/2015 Ears/Nose/Throat/Neck postnasal drip 10/13/2015 Ears/Nose/Throat/Neck sinus congestion 10/13/2015 Ears/Nose/Throat/Neck sore throat 10/13/2015 Cardiovascular No chest pain/pressure 10/13/2015 Cardiovascular No dyspnea 10/13/2015 Musculoskeletal No neck pain 10/13/2015 Musculoskeletal No joint complaint 10/13/2015 Neurologic No alteration of consciousness 10/13/2015 Neurologic No mental status change 10/13/2015 Constitutional No anorexia 09/29/2015 Constitutional No night sweats 09/29/2015 Constitutional No chills 09/29/2015 Constitutional No diaphoresis 09/29/2015 Constitutional fatigue 09/29/2015 Constitutional No fever 09/29/2015 Eyes No eye discharge 09/29/2015 Ears/Nose/Throat/Neck No dizziness 09/29/2015 Ears/Nose/Throat/Neck No headache 09/29/2015 Ears/Nose/Throat/Neck No nasal allergies 09/29/2015 Ears/Nose/Throat/Neck No nasal discharge 09/29/2015 Cardiovascular hypertension 09/29/2015 Respiratory No productive sputum 09/29/2015 Respiratory No chest congestion 09/29/2015 Respiratory No cough 09/29/2015 Gastrointestinal No constipation 09/29/2015 Gastrointestinal No diarrhea 09/29/2015 Gastrointestinal gastroesophageal reflux 09/29/2015 Gastrointestinal No nausea 09/29/2015 Gastrointestinal No vomiting 09/29/2015 Genitourinary/Nephrology No dysuria 09/29/2015 Genitourinary/Nephrology No urinary retention/hesitancy 09/29/2015 Genitourinary/Nephrology No vaginal discharge 09/29/2015 Musculoskeletal No stiffness 09/29/2015 Musculoskeletal No swelling 09/29/2015 Musculoskeletal No muscle weakness 09/29/2015 Musculoskeletal No myalgias 09/29/2015 Dermatologic No rash 09/29/2015 Psychiatric No anxiety 09/29/2015 Psychiatric No depression 09/29/2015 Constitutional No anorexia 09/15/2015 Constitutional No night sweats 09/15/2015 Constitutional No chills 09/15/2015 Constitutional No diaphoresis 09/15/2015 Constitutional fatigue 09/15/2015 Constitutional No fever 09/15/2015 Eyes No eye discharge 09/15/2015 Ears/Nose/Throat/Neck No dizziness 09/15/2015 Ears/Nose/Throat/Neck No headache 09/15/2015 Ears/Nose/Throat/Neck No nasal allergies 09/15/2015 Ears/Nose/Throat/Neck No nasal discharge 09/15/2015 Cardiovascular hypertension 09/15/2015 Respiratory No productive sputum 09/15/2015 Respiratory No chest congestion 09/15/2015 Respiratory No cough 09/15/2015 Gastrointestinal No constipation 09/15/2015 Gastrointestinal No diarrhea 09/15/2015 Gastrointestinal gastroesophageal reflux 09/15/2015 Gastrointestinal No nausea 09/15/2015 Gastrointestinal No vomiting 09/15/2015 Genitourinary/Nephrology No dysuria 09/15/2015 Genitourinary/Nephrology No urinary retention/hesitancy 09/15/2015 Genitourinary/Nephrology No vaginal discharge 09/15/2015 Musculoskeletal No stiffness 09/15/2015 Musculoskeletal No swelling 09/15/2015 Musculoskeletal No muscle weakness 09/15/2015 Musculoskeletal No myalgias 09/15/2015 Dermatologic No rash 09/15/2015 Psychiatric No anxiety 09/15/2015 Psychiatric No depression 09/15/2015 Constitutional No recent illness 09/01/2015 Constitutional No anorexia 09/01/2015 Constitutional No night sweats 09/01/2015 Constitutional No chills 09/01/2015 Constitutional No diaphoresis 09/01/2015 Constitutional fatigue 09/01/2015 Constitutional No fever 09/01/2015 Constitutional No insomnia 09/01/2015 Constitutional malaise 09/01/2015 Constitutional No weight loss 09/01/2015 Constitutional No weight gain 09/01/2015 Constitutional No obesity 09/01/2015 Eyes eye discharge 09/01/2015 Eyes vision change 09/01/2015 Eyes eye pain 09/01/2015 Ears/Nose/Throat/Neck No nasal discharge 09/01/2015 Ears/Nose/Throat/Neck No nasal allergies 09/01/2015 Cardiovascular No chest pain/pressure 09/01/2015 Respiratory No cough 09/01/2015 Respiratory No chest tightness 09/01/2015 Respiratory No chest congestion 09/01/2015 Respiratory No cigarette smoking 09/01/2015 Respiratory No dyspnea on exertion 09/01/2015 Respiratory No dyspnea 09/01/2015 Cardiovascular edema 09/01/2015 Gastrointestinal No constipation 09/01/2015 Gastrointestinal No diarrhea 09/01/2015 Genitourinary/Nephrology No dysuria 09/01/2015 Genitourinary/Nephrology No urinary frequency 09/01/2015 Genitourinary/Nephrology No urinary incontinence 09/01/2015 Genitourinary/Nephrology urinary urgency 09/01/2015 Genitourinary/Nephrology No urinary retention/hesitancy 09/01/2015 Musculoskeletal joint complaint 09/01/2015 Musculoskeletal No muscle weakness 09/01/2015 Musculoskeletal No myalgias 09/01/2015 Musculoskeletal No bone pain 09/01/2015 Musculoskeletal arthralgia(s) 09/01/2015 Dermatologic No rash 09/01/2015 Dermatologic No sores 09/01/2015 Psychiatric anxiety 09/01/2015 Psychiatric No depression 09/01/2015 Constitutional No anorexia 05/26/2015 Constitutional No night sweats 05/26/2015 Constitutional No chills 05/26/2015 Constitutional No diaphoresis 05/26/2015 Constitutional fatigue 05/26/2015 Constitutional No fever 05/26/2015 Eyes No eye discharge 05/26/2015 Ears/Nose/Throat/Neck No dizziness 05/26/2015 Ears/Nose/Throat/Neck No headache 05/26/2015 Ears/Nose/Throat/Neck No nasal allergies 05/26/2015 Ears/Nose/Throat/Neck No nasal discharge 05/26/2015 Ears/Nose/Throat/Neck No sore throat 05/26/2015 Respiratory No productive sputum 05/26/2015 Respiratory No chest congestion 05/26/2015 Respiratory No cough 05/26/2015 Gastrointestinal No constipation 05/26/2015 Gastrointestinal No diarrhea 05/26/2015 Gastrointestinal No nausea 05/26/2015 Gastrointestinal No vomiting 05/26/2015 Genitourinary/Nephrology dysuria 05/26/2015 Genitourinary/Nephrology No urinary retention/hesitancy 05/26/2015 Musculoskeletal No stiffness 05/26/2015 Musculoskeletal No swelling 05/26/2015 Musculoskeletal No muscle weakness 05/26/2015 Musculoskeletal No myalgias 05/26/2015 Dermatologic No rash 05/26/2015 Psychiatric No anxiety 05/26/2015 Psychiatric No depression 05/26/2015 Cardiovascular No chest pain/pressure 05/26/2015 Cardiovascular No dyspnea 05/26/2015 Cardiovascular No edema 05/26/2015 Genitourinary/Nephrology hematuria 05/26/2015 Genitourinary/Nephrology No vaginal discharge 05/26/2015 Genitourinary/Nephrology No urinary incontinence 05/26/2015 Genitourinary/Nephrology No urinary frequency 05/26/2015 Constitutional No anorexia 05/21/2015 Constitutional No night sweats 05/21/2015 Constitutional No chills 05/21/2015 Constitutional No diaphoresis 05/21/2015 Constitutional fatigue 05/21/2015 Constitutional No fever 05/21/2015 Eyes No eye discharge 05/21/2015 Ears/Nose/Throat/Neck No dizziness 05/21/2015 Ears/Nose/Throat/Neck No headache 05/21/2015 Ears/Nose/Throat/Neck No nasal allergies 05/21/2015 Ears/Nose/Throat/Neck No nasal discharge 05/21/2015 Cardiovascular hypertension 05/21/2015 Respiratory No productive sputum 05/21/2015 Respiratory No chest congestion 05/21/2015 Respiratory No cough 05/21/2015 Gastrointestinal No constipation 05/21/2015 Gastrointestinal No diarrhea 05/21/2015 Dermatologic No rash 05/21/2015 Psychiatric No anxiety 05/21/2015 Psychiatric No depression 05/21/2015 Eyes No eye erythema 05/21/2015 Musculoskeletal joint complaint 05/21/2015 Constitutional No anorexia 05/07/2015 Constitutional No night sweats 05/07/2015 Constitutional No chills 05/07/2015 Constitutional No diaphoresis 05/07/2015 Constitutional fatigue 05/07/2015 Constitutional No fever 05/07/2015 Eyes No eye discharge 05/07/2015 Ears/Nose/Throat/Neck No dizziness 05/07/2015 Ears/Nose/Throat/Neck No headache 05/07/2015 Ears/Nose/Throat/Neck No nasal allergies 05/07/2015 Ears/Nose/Throat/Neck No nasal discharge 05/07/2015 Ears/Nose/Throat/Neck sore throat 05/07/2015 Cardiovascular hypertension 05/07/2015 Respiratory No productive sputum 05/07/2015 Respiratory No chest congestion 05/07/2015 Respiratory No cough 05/07/2015 Gastrointestinal abdominal pain 05/07/2015 Gastrointestinal No constipation 05/07/2015 Gastrointestinal No diarrhea 05/07/2015 Gastrointestinal gas and bloating 05/07/2015 Gastrointestinal No nausea 05/07/2015 Gastrointestinal No vomiting 05/07/2015 Genitourinary/Nephrology No dysuria 05/07/2015 Genitourinary/Nephrology No urinary retention/hesitancy 05/07/2015 Genitourinary/Nephrology No vaginal discharge 05/07/2015 Musculoskeletal No stiffness 05/07/2015 Musculoskeletal No swelling 05/07/2015 Musculoskeletal No muscle weakness 05/07/2015 Musculoskeletal No myalgias 05/07/2015 Dermatologic No rash 05/07/2015 Psychiatric No anxiety 05/07/2015 Psychiatric No depression 05/07/2015 Gastrointestinal gastroesophageal reflux 05/07/2015 Genitourinary/Nephrology urinary incontinence 05/07/2015 Genitourinary/Nephrology urinary frequency 05/07/2015 Constitutional No recent illness 03/23/2015 Constitutional anorexia 03/23/2015 Constitutional No night sweats 03/23/2015 Constitutional No chills 03/23/2015 Constitutional No fatigue 03/23/2015 Constitutional No diaphoresis 03/23/2015 Constitutional No fever 03/23/2015 Constitutional No insomnia 03/23/2015 Constitutional No malaise 03/23/2015 Constitutional No weight loss 03/23/2015 Constitutional No weight gain 03/23/2015 Eyes No eye discharge 03/23/2015 Eyes No eye erythema 03/23/2015 Ears/Nose/Throat/Neck No dizziness 03/23/2015 Ears/Nose/Throat/Neck No headache 03/23/2015 Cardiovascular No chest pain/pressure 03/23/2015 Cardiovascular No edema 03/23/2015 Cardiovascular No dyspnea 03/23/2015 Respiratory No pleuritic pain 03/23/2015 Respiratory No chest congestion 03/23/2015 Respiratory No cough 03/23/2015 Gastrointestinal No abdominal pain 03/23/2015 Gastrointestinal No constipation 03/23/2015 Gastrointestinal No diarrhea 03/23/2015 Gastrointestinal gas and bloating 03/23/2015 Genitourinary/Nephrology No dysuria 03/23/2015 Musculoskeletal No joint complaint 03/23/2015 Dermatologic No rash 03/23/2015 Dermatologic No sores 03/23/2015 Neurologic No alteration of consciousness 03/23/2015 Psychiatric anxiety 03/23/2015 Endocrine No dry or coarse skin 03/23/2015 Constitutional No anorexia 03/09/2015 Constitutional No night sweats 03/09/2015 Constitutional No chills 03/09/2015 Constitutional No diaphoresis 03/09/2015 Constitutional fatigue 03/09/2015 Constitutional No fever 03/09/2015 Eyes No eye discharge 03/09/2015 Ears/Nose/Throat/Neck No dizziness 03/09/2015 Ears/Nose/Throat/Neck No headache 03/09/2015 Ears/Nose/Throat/Neck No nasal allergies 03/09/2015 Ears/Nose/Throat/Neck No nasal discharge 03/09/2015 Ears/Nose/Throat/Neck sore throat 03/09/2015 Respiratory No productive sputum 03/09/2015 Respiratory No chest congestion 03/09/2015 Respiratory No cough 03/09/2015 Gastrointestinal abdominal pain 03/09/2015 Gastrointestinal No constipation 03/09/2015 Gastrointestinal No diarrhea 03/09/2015 Gastrointestinal gas and bloating 03/09/2015 Gastrointestinal gastroesophageal reflux 03/09/2015 Gastrointestinal No nausea 03/09/2015 Gastrointestinal No vomiting 03/09/2015 Genitourinary/Nephrology No dysuria 03/09/2015 Genitourinary/Nephrology No urinary retention/hesitancy 03/09/2015 Genitourinary/Nephrology No vaginal discharge 03/09/2015 Dermatologic No rash 03/09/2015 Psychiatric No anxiety 03/09/2015 Psychiatric No depression 03/09/2015 Musculoskeletal No stiffness 03/09/2015 Musculoskeletal No swelling 03/09/2015 Musculoskeletal No muscle weakness 03/09/2015 Musculoskeletal No myalgias 03/09/2015 Cardiovascular hypertension 03/09/2015 Constitutional recent illness 10/30/2014 Constitutional No anorexia 10/30/2014 Constitutional No night sweats 10/30/2014 Constitutional No chills 10/30/2014 Constitutional No diaphoresis 10/30/2014 Constitutional fatigue 10/30/2014 Constitutional No fever 10/30/2014 Constitutional No insomnia 10/30/2014 Constitutional No malaise 10/30/2014 Constitutional No weight gain 10/30/2014 Eyes No eye discharge 10/30/2014 Eyes No eye erythema 10/30/2014 Ears/Nose/Throat/Neck No dizziness 10/30/2014 Ears/Nose/Throat/Neck No headache 10/30/2014 Ears/Nose/Throat/Neck nasal allergies 10/30/2014 Ears/Nose/Throat/Neck nasal discharge 10/30/2014 Cardiovascular arrhythmia 10/30/2014 Cardiovascular No chest pain/pressure 10/30/2014 Cardiovascular dyspnea 10/30/2014 Cardiovascular fatigue 10/30/2014 Cardiovascular palpitations 10/30/2014 Respiratory dyspnea on exertion 10/30/2014 Gastrointestinal No constipation 10/30/2014 Gastrointestinal No diarrhea 10/30/2014 Gastrointestinal No nausea 10/30/2014 Gastrointestinal No vomiting 10/30/2014 Musculoskeletal No joint complaint 10/30/2014 Dermatologic No rash 10/30/2014 Dermatologic No sores 10/30/2014 Neurologic No alteration of consciousness 10/30/2014 Genitourinary/Nephrology urinary incontinence 10/30/2014 Genitourinary/Nephrology urinary retention/hesitancy 10/30/2014 Constitutional recent illness 07/11/2014 Constitutional No anorexia 07/11/2014 Constitutional No night sweats 07/11/2014 Constitutional No chills 07/11/2014 Constitutional No diaphoresis 07/11/2014 Constitutional fatigue 07/11/2014 Constitutional No fever 07/11/2014 Constitutional No insomnia 07/11/2014 Constitutional No malaise 07/11/2014 Constitutional weight loss 07/11/2014 Constitutional No weight gain 07/11/2014 Eyes No eye discharge 07/11/2014 Eyes No eye erythema 07/11/2014 Ears/Nose/Throat/Neck No dizziness 07/11/2014 Ears/Nose/Throat/Neck No headache 07/11/2014 Cardiovascular arrhythmia 07/11/2014 Cardiovascular No chest pain/pressure 07/11/2014 Cardiovascular dyspnea 07/11/2014 Cardiovascular fatigue 07/11/2014 Cardiovascular palpitations 07/11/2014 Respiratory dyspnea on exertion 07/11/2014 Gastrointestinal No constipation 07/11/2014 Gastrointestinal No diarrhea 07/11/2014 Gastrointestinal No nausea 07/11/2014 Gastrointestinal No vomiting 07/11/2014 Musculoskeletal No joint complaint 07/11/2014 Dermatologic No rash 07/11/2014 Dermatologic No sores 07/11/2014 Neurologic No alteration of consciousness 07/11/2014 Ears/Nose/Throat/Neck nasal allergies 07/11/2014 Ears/Nose/Throat/Neck nasal discharge 07/11/2014 Constitutional No recent illness 05/20/2014 Constitutional No anorexia 05/20/2014 Constitutional No night sweats 05/20/2014 Constitutional No chills 05/20/2014 Constitutional No diaphoresis 05/20/2014 Constitutional fatigue 05/20/2014 Constitutional No fever 05/20/2014 Constitutional No insomnia 05/20/2014 Constitutional No malaise 05/20/2014 Eyes No eye discharge 05/20/2014 Eyes No eye erythema 05/20/2014 Ears/Nose/Throat/Neck No dizziness 05/20/2014 Ears/Nose/Throat/Neck No headache 05/20/2014 Cardiovascular arrhythmia 05/20/2014 Cardiovascular No chest pain/pressure 05/20/2014 Cardiovascular dyspnea 05/20/2014 Cardiovascular fatigue 05/20/2014 Cardiovascular palpitations 05/20/2014 Respiratory dyspnea on exertion 05/20/2014 Gastrointestinal No constipation 05/20/2014 Gastrointestinal No diarrhea 05/20/2014 Gastrointestinal No nausea 05/20/2014 Gastrointestinal No vomiting 05/20/2014 Musculoskeletal No joint complaint 05/20/2014 Dermatologic No rash 05/20/2014 Dermatologic No sores 05/20/2014 Neurologic No alteration of consciousness 05/20/2014 Genitourinary/Nephrology dysuria 05/20/2014 Genitourinary/Nephrology urinary urgency 05/20/2014 Genitourinary/Nephrology urinary frequency 05/20/2014 Constitutional No recent illness 04/29/2014 Constitutional No anorexia 04/29/2014 Constitutional No night sweats 04/29/2014 Constitutional No chills 04/29/2014 Constitutional No diaphoresis 04/29/2014 Constitutional fatigue 04/29/2014 Constitutional No fever 04/29/2014 Constitutional No insomnia 04/29/2014 Constitutional No malaise 04/29/2014 Constitutional weight loss 04/29/2014 Constitutional No weight gain 04/29/2014 Eyes No eye discharge 04/29/2014 Eyes No eye erythema 04/29/2014 Ears/Nose/Throat/Neck No dizziness 04/29/2014 Ears/Nose/Throat/Neck No headache 04/29/2014 Cardiovascular No chest pain/pressure 04/29/2014 Respiratory dyspnea on exertion 04/29/2014 Gastrointestinal No vomiting 04/29/2014 Gastrointestinal No nausea 04/29/2014 Gastrointestinal No constipation 04/29/2014 Gastrointestinal No diarrhea 04/29/2014 Musculoskeletal No joint complaint 04/29/2014 Dermatologic No rash 04/29/2014 Dermatologic No sores 04/29/2014 Neurologic No alteration of consciousness 04/29/2014 Cardiovascular dyspnea 04/29/2014 Cardiovascular arrhythmia 04/29/2014 Cardiovascular fatigue 04/29/2014 Cardiovascular palpitations 04/29/2014 Constitutional No anorexia 03/20/2014 Constitutional No night sweats 03/20/2014 Constitutional No chills 03/20/2014 Constitutional No diaphoresis 03/20/2014 Constitutional fatigue 03/20/2014 Constitutional No fever 03/20/2014 Eyes No eye discharge 03/20/2014 Ears/Nose/Throat/Neck No dizziness 03/20/2014 Ears/Nose/Throat/Neck No headache 03/20/2014 Ears/Nose/Throat/Neck No nasal allergies 03/20/2014 Ears/Nose/Throat/Neck No nasal discharge 03/20/2014 Respiratory No productive sputum 03/20/2014 Respiratory No chest congestion 03/20/2014 Respiratory No cough 03/20/2014 Gastrointestinal No abdominal pain 03/20/2014 Gastrointestinal No constipation 03/20/2014 Gastrointestinal No diarrhea 03/20/2014 Gastrointestinal gas and bloating 03/20/2014 Gastrointestinal gastroesophageal reflux 03/20/2014 Gastrointestinal No nausea 03/20/2014 Gastrointestinal No vomiting 03/20/2014 Genitourinary/Nephrology No dysuria 03/20/2014 Genitourinary/Nephrology No urinary retention/hesitancy 03/20/2014 Genitourinary/Nephrology No vaginal discharge 03/20/2014 Dermatologic No rash 03/20/2014 Psychiatric No anxiety 03/20/2014 Psychiatric No depression 03/20/2014 Ears/Nose/Throat/Neck sore throat 03/20/2014 Constitutional No anorexia 03/05/2014 Constitutional No night sweats 03/05/2014 Constitutional No chills 03/05/2014 Constitutional No diaphoresis 03/05/2014 Constitutional fatigue 03/05/2014 Constitutional No fever 03/05/2014 Eyes No eye discharge 03/05/2014 Ears/Nose/Throat/Neck No dizziness 03/05/2014 Ears/Nose/Throat/Neck No headache 03/05/2014 Ears/Nose/Throat/Neck No nasal allergies 03/05/2014 Ears/Nose/Throat/Neck No nasal discharge 03/05/2014 Respiratory No productive sputum 03/05/2014 Respiratory No chest congestion 03/05/2014 Respiratory No cough 03/05/2014 Gastrointestinal No abdominal pain 03/05/2014 Gastrointestinal No constipation 03/05/2014 Gastrointestinal No diarrhea 03/05/2014 Gastrointestinal gas and bloating 03/05/2014 Gastrointestinal gastroesophageal reflux 03/05/2014 Gastrointestinal No nausea 03/05/2014 Gastrointestinal No vomiting 03/05/2014 Genitourinary/Nephrology No dysuria 03/05/2014 Genitourinary/Nephrology No urinary retention/hesitancy 03/05/2014 Genitourinary/Nephrology No vaginal discharge 03/05/2014 Dermatologic No rash 03/05/2014 Psychiatric No anxiety 03/05/2014 Psychiatric No depression 03/05/2014 Constitutional recent illness 01/29/2014 Constitutional No anorexia 01/29/2014 Constitutional No night sweats 01/29/2014 Constitutional No chills 01/29/2014 Constitutional No diaphoresis 01/29/2014 Constitutional No fatigue 01/29/2014 Constitutional No fever 01/29/2014 Constitutional No insomnia 01/29/2014 Constitutional No malaise 01/29/2014 Eyes No eye discharge 01/29/2014 Eyes No eye erythema 01/29/2014 Ears/Nose/Throat/Neck No dizziness 01/29/2014 Ears/Nose/Throat/Neck No headache 01/29/2014 Cardiovascular No chest pain/pressure 01/29/2014 Respiratory No productive sputum 01/29/2014 Respiratory No cough 01/29/2014 Gastrointestinal abdominal pain 01/29/2014 Gastrointestinal No constipation 01/29/2014 Gastrointestinal diarrhea 01/29/2014 Gastrointestinal gas and bloating 01/29/2014 Gastrointestinal No nausea 01/29/2014 Gastrointestinal No vomiting 01/29/2014 Genitourinary/Nephrology No dysuria 01/29/2014 Musculoskeletal No joint complaint 01/29/2014 Dermatologic No rash 01/29/2014 Dermatologic No sores 01/29/2014 Psychiatric No anxiety 01/29/2014 Psychiatric No depression 01/29/2014 Constitutional recent illness 01/14/2014 Gastrointestinal No abdominal pain 01/14/2014 Gastrointestinal No constipation 01/14/2014 Gastrointestinal diarrhea 01/14/2014 Gastrointestinal No nausea 01/14/2014 Gastrointestinal No vomiting 01/14/2014 Gastrointestinal gas and bloating 01/14/2014 Respiratory No productive sputum 01/14/2014 Respiratory No cough 01/14/2014 Cardiovascular No chest pain/pressure 01/14/2014 Ears/Nose/Throat/Neck No dizziness 01/14/2014 Ears/Nose/Throat/Neck No headache 01/14/2014 Eyes No eye discharge 01/14/2014 Eyes No eye erythema 01/14/2014 Constitutional No night sweats 01/14/2014 Constitutional No anorexia 01/14/2014 Constitutional No chills 01/14/2014 Constitutional No diaphoresis 01/14/2014 Constitutional No insomnia 01/14/2014 Constitutional No fever 01/14/2014 Constitutional No fatigue 01/14/2014 Constitutional No malaise 01/14/2014 Genitourinary/Nephrology No dysuria 01/14/2014 Musculoskeletal No joint complaint 01/14/2014 Dermatologic No rash 01/14/2014 Dermatologic No sores 01/14/2014 Constitutional No anorexia 12/25/2013 Constitutional No night sweats 12/25/2013 Constitutional No chills 12/25/2013 Constitutional No diaphoresis 12/25/2013 Constitutional fatigue 12/25/2013 Constitutional No fever 12/25/2013 Eyes No eye discharge 12/25/2013 Ears/Nose/Throat/Neck No dizziness 12/25/2013 Ears/Nose/Throat/Neck No headache 12/25/2013 Ears/Nose/Throat/Neck No nasal allergies 12/25/2013 Ears/Nose/Throat/Neck No nasal discharge 12/25/2013 Respiratory No productive sputum 12/25/2013 Respiratory No chest congestion 12/25/2013 Respiratory No cough 12/25/2013 Gastrointestinal No abdominal pain 12/25/2013 Gastrointestinal No constipation 12/25/2013 Gastrointestinal No diarrhea 12/25/2013 Gastrointestinal No nausea 12/25/2013 Gastrointestinal No vomiting 12/25/2013 Genitourinary/Nephrology No dysuria 12/25/2013 Genitourinary/Nephrology No urinary retention/hesitancy 12/25/2013 Genitourinary/Nephrology No vaginal discharge 12/25/2013 Dermatologic No rash 12/25/2013 Psychiatric No anxiety 12/25/2013 Psychiatric No depression 12/25/2013 Gastrointestinal gas and bloating 12/25/2013 Gastrointestinal gastroesophageal reflux 12/25/2013 Constitutional No anorexia 11/27/2013 Constitutional No night sweats 11/27/2013 Constitutional No chills 11/27/2013 Constitutional No diaphoresis 11/27/2013 Constitutional fatigue 11/27/2013 Constitutional No fever 11/27/2013 Eyes No eye discharge 11/27/2013 Ears/Nose/Throat/Neck No dizziness 11/27/2013 Ears/Nose/Throat/Neck No headache 11/27/2013 Ears/Nose/Throat/Neck No nasal allergies 11/27/2013 Ears/Nose/Throat/Neck No nasal discharge 11/27/2013 Respiratory No productive sputum 11/27/2013 Respiratory No chest congestion 11/27/2013 Respiratory No cough 11/27/2013 Gastrointestinal No abdominal pain 11/27/2013 Gastrointestinal No constipation 11/27/2013 Gastrointestinal No diarrhea 11/27/2013 Gastrointestinal No nausea 11/27/2013 Gastrointestinal No vomiting 11/27/2013 Genitourinary/Nephrology No dysuria 11/27/2013 Genitourinary/Nephrology No urinary retention/hesitancy 11/27/2013 Genitourinary/Nephrology No vaginal discharge 11/27/2013 Dermatologic No rash 11/27/2013 Psychiatric No anxiety 11/27/2013 Psychiatric No depression 11/27/2013 Constitutional No anorexia 09/12/2013 Constitutional No night sweats 09/12/2013 Constitutional No chills 09/12/2013 Constitutional No diaphoresis 09/12/2013 Constitutional fatigue 09/12/2013 Constitutional No fever 09/12/2013 Eyes No eye discharge 09/12/2013 Ears/Nose/Throat/Neck No dizziness 09/12/2013 Ears/Nose/Throat/Neck No headache 09/12/2013 Ears/Nose/Throat/Neck No nasal allergies 09/12/2013 Ears/Nose/Throat/Neck No nasal discharge 09/12/2013 Respiratory No productive sputum 09/12/2013 Respiratory No chest congestion 09/12/2013 Respiratory No cough 09/12/2013 Gastrointestinal No abdominal pain 09/12/2013 Gastrointestinal No constipation 09/12/2013 Gastrointestinal No diarrhea 09/12/2013 Gastrointestinal No nausea 09/12/2013 Gastrointestinal No vomiting 09/12/2013 Genitourinary/Nephrology No dysuria 09/12/2013 Genitourinary/Nephrology No urinary retention/hesitancy 09/12/2013 Genitourinary/Nephrology No vaginal discharge 09/12/2013 Dermatologic No rash 09/12/2013 Psychiatric No anxiety 09/12/2013 Psychiatric No depression 09/12/2013 Constitutional No anorexia 08/15/2013 Constitutional No night sweats 08/15/2013 Constitutional No chills 08/15/2013 Constitutional No diaphoresis 08/15/2013 Constitutional fatigue 08/15/2013 Constitutional No fever 08/15/2013 Eyes No eye discharge 08/15/2013 Ears/Nose/Throat/Neck No dizziness 08/15/2013 Ears/Nose/Throat/Neck No headache 08/15/2013 Ears/Nose/Throat/Neck No nasal allergies 08/15/2013 Ears/Nose/Throat/Neck No nasal discharge 08/15/2013 Respiratory No productive sputum 08/15/2013 Respiratory No chest congestion 08/15/2013 Respiratory No cough 08/15/2013 Gastrointestinal No abdominal pain 08/15/2013 Gastrointestinal No constipation 08/15/2013 Gastrointestinal No diarrhea 08/15/2013 Gastrointestinal No nausea 08/15/2013 Gastrointestinal No vomiting 08/15/2013 Genitourinary/Nephrology No dysuria 08/15/2013 Genitourinary/Nephrology No urinary retention/hesitancy 08/15/2013 Genitourinary/Nephrology No vaginal discharge 08/15/2013 Dermatologic No rash 08/15/2013 Psychiatric No anxiety 08/15/2013 Psychiatric No depression 08/15/2013 Constitutional No anorexia 08/01/2013 Constitutional No night sweats 08/01/2013 Constitutional No chills 08/01/2013 Constitutional No diaphoresis 08/01/2013 Constitutional fatigue 08/01/2013 Constitutional No fever 08/01/2013 Eyes No eye discharge 08/01/2013 Ears/Nose/Throat/Neck No dizziness 08/01/2013 Ears/Nose/Throat/Neck No headache 08/01/2013 Ears/Nose/Throat/Neck No nasal allergies 08/01/2013 Ears/Nose/Throat/Neck No nasal discharge 08/01/2013 Respiratory No productive sputum 08/01/2013 Respiratory No chest congestion 08/01/2013 Respiratory No cough 08/01/2013 Gastrointestinal No abdominal pain 08/01/2013 Gastrointestinal No constipation 08/01/2013 Gastrointestinal No diarrhea 08/01/2013 Gastrointestinal No nausea 08/01/2013 Gastrointestinal No vomiting 08/01/2013 Genitourinary/Nephrology No dysuria 08/01/2013 Genitourinary/Nephrology No urinary retention/hesitancy 08/01/2013 Genitourinary/Nephrology No vaginal discharge 08/01/2013 Dermatologic No rash 08/01/2013 Psychiatric No anxiety 08/01/2013 Psychiatric No depression 08/01/2013 Constitutional No anorexia 05/29/2013 Constitutional No night sweats 05/29/2013 Constitutional No chills 05/29/2013 Constitutional No diaphoresis 05/29/2013 Constitutional fatigue 05/29/2013 Constitutional No fever 05/29/2013 Eyes No eye discharge 05/29/2013 Ears/Nose/Throat/Neck No dizziness 05/29/2013 Ears/Nose/Throat/Neck No headache 05/29/2013 Ears/Nose/Throat/Neck No nasal allergies 05/29/2013 Ears/Nose/Throat/Neck No nasal discharge 05/29/2013 Respiratory No productive sputum 05/29/2013 Respiratory No chest congestion 05/29/2013 Respiratory No cough 05/29/2013 Gastrointestinal No abdominal pain 05/29/2013 Gastrointestinal No constipation 05/29/2013 Gastrointestinal No diarrhea 05/29/2013 Gastrointestinal No nausea 05/29/2013 Gastrointestinal No vomiting 05/29/2013 Genitourinary/Nephrology No dysuria 05/29/2013 Genitourinary/Nephrology No urinary retention/hesitancy 05/29/2013 Genitourinary/Nephrology No vaginal discharge 05/29/2013 Dermatologic No rash 05/29/2013 Psychiatric No anxiety 05/29/2013 Psychiatric No depression 05/29/2013 Constitutional No anorexia 05/15/2013 Constitutional No night sweats 05/15/2013 Constitutional No chills 05/15/2013 Constitutional No diaphoresis 05/15/2013 Constitutional fatigue 05/15/2013 Constitutional No fever 05/15/2013 Eyes No eye discharge 05/15/2013 Ears/Nose/Throat/Neck No dizziness 05/15/2013 Ears/Nose/Throat/Neck No headache 05/15/2013 Ears/Nose/Throat/Neck No nasal allergies 05/15/2013 Ears/Nose/Throat/Neck No nasal discharge 05/15/2013 Respiratory No productive sputum 05/15/2013 Respiratory No chest congestion 05/15/2013 Respiratory No cough 05/15/2013 Gastrointestinal No abdominal pain 05/15/2013 Gastrointestinal No constipation 05/15/2013 Gastrointestinal No diarrhea 05/15/2013 Gastrointestinal No nausea 05/15/2013 Gastrointestinal No vomiting 05/15/2013 Genitourinary/Nephrology No dysuria 05/15/2013 Genitourinary/Nephrology No urinary retention/hesitancy 05/15/2013 Genitourinary/Nephrology No vaginal discharge 05/15/2013 Dermatologic No rash 05/15/2013 Psychiatric No anxiety 05/15/2013 Psychiatric No depression 05/15/2013 Constitutional No anorexia 04/23/2013 Constitutional No night sweats 04/23/2013 Constitutional No chills 04/23/2013 Constitutional No diaphoresis 04/23/2013 Constitutional fatigue 04/23/2013 Constitutional No fever 04/23/2013 Eyes No eye discharge 04/23/2013 Ears/Nose/Throat/Neck No dizziness 04/23/2013 Ears/Nose/Throat/Neck No headache 04/23/2013 Ears/Nose/Throat/Neck No nasal allergies 04/23/2013 Ears/Nose/Throat/Neck No nasal discharge 04/23/2013 Respiratory No productive sputum 04/23/2013 Respiratory No chest congestion 04/23/2013 Respiratory No cough 04/23/2013 Gastrointestinal No abdominal pain 04/23/2013 Gastrointestinal No constipation 04/23/2013 Gastrointestinal No diarrhea 04/23/2013 Gastrointestinal No nausea 04/23/2013 Gastrointestinal No vomiting 04/23/2013 Genitourinary/Nephrology No dysuria 04/23/2013 Genitourinary/Nephrology No urinary retention/hesitancy 04/23/2013 Genitourinary/Nephrology No vaginal discharge 04/23/2013 Dermatologic No rash 04/23/2013 Psychiatric No anxiety 04/23/2013 Psychiatric No depression 04/23/2013 Constitutional No chills 03/21/2013 Constitutional fatigue 03/21/2013 Constitutional No fever 03/21/2013 Constitutional No insomnia 03/21/2013 Constitutional No malaise 03/21/2013 Constitutional weight loss 03/21/2013 Eyes No blindness 03/21/2013 Eyes No vision change 03/21/2013 Cardiovascular No chest pain/pressure 03/21/2013 Cardiovascular No dyspnea 03/21/2013 Cardiovascular No edema 03/21/2013 Cardiovascular No exercise intolerance 03/21/2013 Cardiovascular No fatigue 03/21/2013 Cardiovascular No near-syncope/dizziness 03/21/2013 Respiratory No chest tightness 03/21/2013 Respiratory No cigarette smoking 03/21/2013 Respiratory No cough 03/21/2013 Respiratory No dyspnea 03/21/2013 Respiratory No pedal edema 03/21/2013 Respiratory No snoring 03/21/2013 Respiratory No wheezing 03/21/2013 Genitourinary/Nephrology No dysuria 03/21/2013 Genitourinary/Nephrology No nocturia 03/21/2013 Genitourinary/Nephrology No urinary incontinence 03/21/2013 Musculoskeletal No stiffness 03/21/2013 Musculoskeletal No swelling 03/21/2013 Musculoskeletal No muscle weakness 03/21/2013 Musculoskeletal No myalgias 03/21/2013 Dermatologic No rash 03/21/2013 Dermatologic No sores 03/21/2013 Neurologic No dizziness 03/21/2013 Neurologic No headache 03/21/2013 Neurologic No neck pain 03/21/2013 Neurologic No syncope 03/21/2013 Psychiatric No anxiety 03/21/2013 Psychiatric No depression 03/21/2013 Constitutional No anorexia 01/16/2013 Constitutional No night sweats 01/16/2013 Constitutional No chills 01/16/2013 Constitutional No diaphoresis 01/16/2013 Constitutional fatigue 01/16/2013 Constitutional No fever 01/16/2013 Eyes No eye discharge 01/16/2013 Ears/Nose/Throat/Neck No dizziness 01/16/2013 Ears/Nose/Throat/Neck No headache 01/16/2013 Ears/Nose/Throat/Neck No nasal allergies 01/16/2013 Ears/Nose/Throat/Neck No nasal discharge 01/16/2013 Respiratory No productive sputum 01/16/2013 Respiratory No chest congestion 01/16/2013 Respiratory No cough 01/16/2013 Gastrointestinal No abdominal pain 01/16/2013 Gastrointestinal No constipation 01/16/2013 Gastrointestinal No diarrhea 01/16/2013 Gastrointestinal No nausea 01/16/2013 Gastrointestinal No vomiting 01/16/2013 Genitourinary/Nephrology No dysuria 01/16/2013 Genitourinary/Nephrology No urinary retention/hesitancy 01/16/2013 Genitourinary/Nephrology No vaginal discharge 01/16/2013 Dermatologic No rash 01/16/2013 Psychiatric No anxiety 01/16/2013 Psychiatric No depression 01/16/2013 Constitutional recent illness 12/14/2012 Constitutional No chills 12/14/2012 Constitutional fatigue 12/14/2012 Constitutional No fever 12/14/2012 Constitutional recent illness 12/12/2012 Constitutional No chills 12/12/2012 Constitutional fatigue 12/12/2012 Constitutional No fever 12/12/2012 Constitutional recent illness 12/11/2012 Constitutional fatigue 12/11/2012 Respiratory No productive sputum 12/11/2012 Respiratory No cough 12/11/2012 Psychiatric No anxiety 12/11/2012 Constitutional recent illness 12/10/2012 Constitutional fatigue 12/10/2012 Respiratory No productive sputum 12/10/2012 Respiratory No cough 12/10/2012 Psychiatric No anxiety 12/10/2012 Constitutional recent illness 10/30/2012 Constitutional No anorexia 10/30/2012 Constitutional No night sweats 10/30/2012 Constitutional No chills 10/30/2012 Constitutional No diaphoresis 10/30/2012 Constitutional fatigue 10/30/2012 Constitutional No fever 10/30/2012 Eyes No eye discharge 10/30/2012 Ears/Nose/Throat/Neck No dizziness 10/30/2012 Ears/Nose/Throat/Neck No headache 10/30/2012 Ears/Nose/Throat/Neck No nasal allergies 10/30/2012 Ears/Nose/Throat/Neck No nasal discharge 10/30/2012 Respiratory No productive sputum 10/30/2012 Respiratory No chest congestion 10/30/2012 Respiratory No cough 10/30/2012 Gastrointestinal No abdominal pain 10/30/2012 Gastrointestinal No constipation 10/30/2012 Gastrointestinal No diarrhea 10/30/2012 Gastrointestinal No nausea 10/30/2012 Gastrointestinal No vomiting 10/30/2012 Genitourinary/Nephrology No dysuria 10/30/2012 Genitourinary/Nephrology No urinary retention/hesitancy 10/30/2012 Genitourinary/Nephrology No vaginal discharge 10/30/2012 Dermatologic No rash 10/30/2012 Psychiatric No anxiety 10/30/2012 Psychiatric No depression 10/30/2012 Constitutional recent illness 08/08/2012 Constitutional No anorexia 08/08/2012 Constitutional No night sweats 08/08/2012 Constitutional No chills 08/08/2012 Constitutional No diaphoresis 08/08/2012 Constitutional fatigue 08/08/2012 Constitutional No fever 08/08/2012 Eyes No eye discharge 08/08/2012 Ears/Nose/Throat/Neck No dizziness 08/08/2012 Ears/Nose/Throat/Neck No headache 08/08/2012 Ears/Nose/Throat/Neck No nasal allergies 08/08/2012 Ears/Nose/Throat/Neck No nasal discharge 08/08/2012 Respiratory No productive sputum 08/08/2012 Respiratory No chest congestion 08/08/2012 Respiratory No cough 08/08/2012 Gastrointestinal No abdominal pain 08/08/2012 Gastrointestinal No constipation 08/08/2012 Gastrointestinal No diarrhea 08/08/2012 Gastrointestinal No nausea 08/08/2012 Gastrointestinal No vomiting 08/08/2012 Genitourinary/Nephrology No dysuria 08/08/2012 Genitourinary/Nephrology No urinary retention/hesitancy 08/08/2012 Genitourinary/Nephrology No vaginal discharge 08/08/2012 Dermatologic No rash 08/08/2012 Psychiatric No anxiety 08/08/2012 Psychiatric No depression 08/08/2012 Constitutional recent illness 07/11/2012 Constitutional No chills 07/11/2012 Constitutional fatigue 07/11/2012 Constitutional No fever 07/11/2012 Constitutional No insomnia 07/11/2012 Constitutional No malaise 07/11/2012 Constitutional weight loss 07/11/2012 Cardiovascular No chest pain/pressure 07/11/2012 Cardiovascular No dyspnea 07/11/2012 Cardiovascular No edema 07/11/2012 Cardiovascular No exercise intolerance 07/11/2012 Eyes No blindness 07/11/2012 Eyes No vision change 07/11/2012 Dermatologic No rash 07/11/2012 Dermatologic No sores 07/11/2012 Cardiovascular No fatigue 07/11/2012 Cardiovascular No near-syncope/dizziness 07/11/2012 Respiratory No chest tightness 07/11/2012 Respiratory No cigarette smoking 07/11/2012 Respiratory No cough 07/11/2012 Respiratory No dyspnea 07/11/2012 Respiratory No pedal edema 07/11/2012 Respiratory No snoring 07/11/2012 Respiratory No wheezing 07/11/2012 Genitourinary/Nephrology No dysuria 07/11/2012 Genitourinary/Nephrology No nocturia 07/11/2012 Genitourinary/Nephrology No urinary incontinence 07/11/2012 Musculoskeletal No stiffness 07/11/2012 Musculoskeletal No swelling 07/11/2012 Musculoskeletal No muscle weakness 07/11/2012 Musculoskeletal No myalgias 07/11/2012 Neurologic No dizziness 07/11/2012 Neurologic No headache 07/11/2012 Neurologic No neck pain 07/11/2012 Neurologic No syncope 07/11/2012 Psychiatric No anxiety 07/11/2012 Psychiatric No depression 07/11/2012 Constitutional recent illness 05/08/2012 Constitutional No chills 05/08/2012 Constitutional fatigue 05/08/2012 Constitutional No fever 05/08/2012 Constitutional No insomnia 05/08/2012 Constitutional No malaise 05/08/2012 Psychiatric No depression 05/08/2012 Gastrointestinal No hemorrhoids 05/08/2012 Gastrointestinal No abdominal pain 05/08/2012 Gastrointestinal No constipation 05/08/2012 Gastrointestinal No diarrhea 05/08/2012 Gastrointestinal No gastroesophageal reflux 05/08/2012 Gastrointestinal No melena 05/08/2012 Gastrointestinal No nausea 05/08/2012 Gastrointestinal No vomiting 05/08/2012 Constitutional weight loss 05/08/2012 Cardiovascular No chest pain/pressure 05/08/2012 Cardiovascular No dyspnea 05/08/2012 Cardiovascular No edema 05/08/2012 Cardiovascular No exercise intolerance 05/08/2012 Cardiovascular No fatigue 05/08/2012 Cardiovascular No near-syncope/dizziness 05/08/2012 Respiratory No chest tightness 05/08/2012 Respiratory No cigarette smoking 05/08/2012 Respiratory No cough 05/08/2012 Respiratory No dyspnea 05/08/2012 Respiratory No pedal edema 05/08/2012 Respiratory No snoring 05/08/2012 Respiratory No wheezing 05/08/2012 Musculoskeletal No stiffness 05/08/2012 Musculoskeletal No swelling 05/08/2012 Musculoskeletal No muscle weakness 05/08/2012 Musculoskeletal No myalgias 05/08/2012 Neurologic No dizziness 05/08/2012 Neurologic No headache 05/08/2012 Neurologic No neck pain 05/08/2012 Neurologic No syncope 05/08/2012 Psychiatric No anxiety 05/08/2012 Constitutional recent illness 04/18/2012 Constitutional No chills 04/18/2012 Constitutional fatigue 04/18/2012 Constitutional No fever 04/18/2012 Constitutional No insomnia 04/18/2012 Constitutional No malaise 04/18/2012 Constitutional weight loss 04/18/2012 Cardiovascular No chest pain/pressure 04/18/2012 Cardiovascular No dyspnea 04/18/2012 Cardiovascular No edema 04/18/2012 Cardiovascular No exercise intolerance 04/18/2012 Cardiovascular No fatigue 04/18/2012 Cardiovascular No near-syncope/dizziness 04/18/2012 Respiratory No chest tightness 04/18/2012 Respiratory No cigarette smoking 04/18/2012 Respiratory No cough 04/18/2012 Respiratory No dyspnea 04/18/2012 Respiratory No pedal edema 04/18/2012 Respiratory No snoring 04/18/2012 Respiratory No wheezing 04/18/2012 Genitourinary/Nephrology No dysuria 04/18/2012 Genitourinary/Nephrology No nocturia 04/18/2012 Genitourinary/Nephrology No urinary incontinence 04/18/2012 Musculoskeletal No stiffness 04/18/2012 Musculoskeletal No swelling 04/18/2012 Musculoskeletal No muscle weakness 04/18/2012 Musculoskeletal No myalgias 04/18/2012 Neurologic No dizziness 04/18/2012 Neurologic No headache 04/18/2012 Neurologic No neck pain 04/18/2012 Neurologic No syncope 04/18/2012 Psychiatric No anxiety 04/18/2012 Psychiatric No depression 04/18/2012 Constitutional No anorexia 03/13/2012 Constitutional No night sweats 03/13/2012 Constitutional No chills 03/13/2012 Constitutional recent illness 03/13/2012 Constitutional No diaphoresis 03/13/2012 Constitutional fatigue 03/13/2012 Constitutional No fever 03/13/2012 Constitutional No insomnia 03/13/2012 Eyes No eye discharge 03/13/2012 Eyes eye erythema 03/13/2012 Ears/Nose/Throat/Neck No dizziness 03/13/2012 Ears/Nose/Throat/Neck No headache 03/13/2012 Ears/Nose/Throat/Neck No nasal discharge 03/13/2012 Ears/Nose/Throat/Neck No sore throat 03/13/2012 Cardiovascular No chest pain/pressure 03/13/2012 Cardiovascular No edema 03/13/2012 Cardiovascular No dyspnea 03/13/2012 Respiratory No productive sputum 03/13/2012 Respiratory No chest congestion 03/13/2012 Respiratory No cough 03/13/2012 Genitourinary/Nephrology No dysuria 03/13/2012 Genitourinary/Nephrology No urinary urgency 03/13/2012 Genitourinary/Nephrology No urinary frequency 03/13/2012 Musculoskeletal No joint complaint 03/13/2012 Dermatologic No rash 03/13/2012 Dermatologic No sores 03/13/2012 Gastrointestinal No nausea 02/20/2012 Gastrointestinal No vomiting 02/20/2012 Musculoskeletal No joint complaint 02/20/2012 Constitutional No recent illness 02/20/2012 Constitutional No fatigue 02/20/2012 Constitutional No fever 02/20/2012 Constitutional No insomnia 02/20/2012 Ears/Nose/Throat/Neck No dizziness 02/20/2012 Ears/Nose/Throat/Neck No headache 02/20/2012 Dermatologic No rash 02/20/2012 Dermatologic No sores 02/20/2012 Dermatologic No telangiectasia 02/20/2012 Constitutional No anorexia 02/20/2012 Constitutional No night sweats 02/20/2012 Constitutional No chills 02/20/2012 Constitutional No diaphoresis 02/20/2012 Constitutional No malaise 02/20/2012 Eyes No eye discharge 02/20/2012 Eyes No eye erythema 02/20/2012 Ears/Nose/Throat/Neck No otalgia 02/20/2012 Ears/Nose/Throat/Neck No sore throat 02/20/2012 Cardiovascular No chest pain/pressure 02/20/2012 Cardiovascular No edema 02/20/2012 Respiratory No productive sputum 02/20/2012 Respiratory No chest congestion 02/20/2012 Gastrointestinal No abdominal pain 02/20/2012 Gastrointestinal constipation 02/20/2012 Gastrointestinal No diarrhea 02/20/2012 Constitutional No recent illness 02/13/2012 Constitutional No night sweats 02/13/2012 Constitutional No anorexia 02/13/2012 Constitutional No chills 02/13/2012 Constitutional No diaphoresis 02/13/2012 Constitutional fatigue 02/13/2012 Constitutional No fever 02/13/2012 Constitutional No insomnia 02/13/2012 Constitutional No malaise 02/13/2012 Eyes No eye discharge 02/13/2012 Eyes No eye erythema 02/13/2012 Ears/Nose/Throat/Neck No dizziness 02/13/2012 Ears/Nose/Throat/Neck No headache 02/13/2012 Ears/Nose/Throat/Neck No otalgia 02/13/2012 Ears/Nose/Throat/Neck No sore throat 02/13/2012 Cardiovascular No chest pain/pressure 02/13/2012 Cardiovascular No edema 02/13/2012 Respiratory No productive sputum 02/13/2012 Respiratory No chest congestion 02/13/2012 Respiratory cough 02/13/2012 Respiratory dyspnea on exertion 02/13/2012 Gastrointestinal No abdominal pain 02/13/2012 Gastrointestinal No diarrhea 02/13/2012 Gastrointestinal constipation 02/13/2012 Gastrointestinal No nausea 02/13/2012 Gastrointestinal No vomiting 02/13/2012 Musculoskeletal No joint complaint 02/13/2012 Genitourinary/Nephrology No dysuria 02/01/2012 Genitourinary/Nephrology urinary urgency 02/01/2012 Genitourinary/Nephrology urinary frequency 02/01/2012 Genitourinary/Nephrology urinary incontinence 02/01/2012 Genitourinary/Nephrology No urinary retention/hesitancy 02/01/2012 Genitourinary/Nephrology No vaginal discharge 02/01/2012 Dermatologic No rash 02/01/2012 Psychiatric No anxiety 02/01/2012 Constitutional recent illness 02/01/2012 Constitutional No anorexia 02/01/2012 Constitutional No night sweats 02/01/2012 Constitutional No chills 02/01/2012 Constitutional No diaphoresis 02/01/2012 Constitutional fatigue 02/01/2012 Constitutional No fever 02/01/2012 Eyes No eye discharge 02/01/2012 Ears/Nose/Throat/Neck No dizziness 02/01/2012 Ears/Nose/Throat/Neck No headache 02/01/2012 Ears/Nose/Throat/Neck No nasal allergies 02/01/2012 Ears/Nose/Throat/Neck No nasal discharge 02/01/2012 Cardiovascular No chest pain/pressure 02/01/2012 Respiratory No productive sputum 02/01/2012 Respiratory No chest congestion 02/01/2012 Respiratory No cough 02/01/2012 Gastrointestinal No abdominal pain 02/01/2012 Gastrointestinal No constipation 02/01/2012 Gastrointestinal No diarrhea 02/01/2012 Gastrointestinal No nausea 02/01/2012 Gastrointestinal No vomiting 02/01/2012 Constitutional recent illness 2012 Constitutional No anorexia 2012 Constitutional No night sweats 2012 Constitutional No chills 2012 Constitutional No diaphoresis 2012 Constitutional fatigue 2012 Constitutional No fever 2012 Eyes No eye discharge 2012 Ears/Nose/Throat/Neck No dizziness 2012 Ears/Nose/Throat/Neck No headache 2012 Ears/Nose/Throat/Neck No nasal allergies 2012 Ears/Nose/Throat/Neck No nasal discharge 2012 Cardiovascular No chest pain/pressure 2012 Respiratory No productive sputum 2012 Respiratory No chest congestion 2012 Respiratory No cough 2012 Gastrointestinal No abdominal pain 2012 Gastrointestinal No constipation 2012 Gastrointestinal No diarrhea 2012 Gastrointestinal No nausea 2012 Gastrointestinal No vomiting 2012 Genitourinary/Nephrology No dysuria 2012 Genitourinary/Nephrology urinary urgency 2012 Genitourinary/Nephrology urinary frequency 2012 Genitourinary/Nephrology urinary incontinence 2012 Genitourinary/Nephrology No urinary retention/hesitancy 2012 Genitourinary/Nephrology No vaginal discharge 2012 Dermatologic No rash 2012 Constitutional recent illness 12/01/2011 Constitutional No anorexia 12/01/2011 Constitutional No night sweats 12/01/2011 Constitutional No chills 12/01/2011 Constitutional No diaphoresis 12/01/2011 Constitutional fatigue 12/01/2011 Constitutional No fever 12/01/2011 Eyes No eye discharge 12/01/2011 Ears/Nose/Throat/Neck No dizziness 12/01/2011 Ears/Nose/Throat/Neck No headache 12/01/2011 Ears/Nose/Throat/Neck No nasal allergies 12/01/2011 Ears/Nose/Throat/Neck No nasal discharge 12/01/2011 Respiratory No productive sputum 12/01/2011 Respiratory No chest congestion 12/01/2011 Respiratory No cough 12/01/2011 Genitourinary/Nephrology No dysuria 12/01/2011 Genitourinary/Nephrology urinary urgency 12/01/2011 Genitourinary/Nephrology urinary frequency 12/01/2011 Genitourinary/Nephrology urinary incontinence 12/01/2011 Genitourinary/Nephrology No urinary retention/hesitancy 12/01/2011 Genitourinary/Nephrology No vaginal discharge 12/01/2011 Dermatologic No rash 12/01/2011 Cardiovascular No chest pain/pressure 12/01/2011 Cardiovascular No dyspnea 12/01/2011 Cardiovascular No edema 12/01/2011 Cardiovascular fatigue 12/01/2011 Constitutional recent illness 11/23/2011 Constitutional No anorexia 11/23/2011 Constitutional No night sweats 11/23/2011 Constitutional No chills 11/23/2011 Constitutional No diaphoresis 11/23/2011 Constitutional fatigue 11/23/2011 Constitutional No fever 11/23/2011 Eyes No eye discharge 11/23/2011 Ears/Nose/Throat/Neck No dizziness 11/23/2011 Ears/Nose/Throat/Neck No headache 11/23/2011 Ears/Nose/Throat/Neck No nasal allergies 11/23/2011 Ears/Nose/Throat/Neck No nasal discharge 11/23/2011 Cardiovascular No chest pain/pressure 11/23/2011 Respiratory No productive sputum 11/23/2011 Respiratory No chest congestion 11/23/2011 Respiratory No cough 11/23/2011 Gastrointestinal No vomiting 11/23/2011 Gastrointestinal No nausea 11/23/2011 Gastrointestinal No abdominal pain 11/23/2011 Gastrointestinal No constipation 11/23/2011 Gastrointestinal No diarrhea 11/23/2011 Genitourinary/Nephrology No dysuria 11/23/2011 Genitourinary/Nephrology urinary incontinence 11/23/2011 Genitourinary/Nephrology urinary frequency 11/23/2011 Genitourinary/Nephrology urinary urgency 11/23/2011 Genitourinary/Nephrology No urinary retention/hesitancy 11/23/2011 Genitourinary/Nephrology No vaginal discharge 11/23/2011 Dermatologic No rash 11/23/2011 Constitutional No recent illness 10/17/2011 Constitutional No anorexia 10/17/2011 Constitutional No night sweats 10/17/2011 Constitutional No chills 10/17/2011 Constitutional No diaphoresis 10/17/2011 Constitutional No fatigue 10/17/2011 Constitutional No fever 10/17/2011 Ears/Nose/Throat/Neck No otalgia 10/17/2011 Constitutional No night sweats 10/03/2011 Constitutional No chills 10/03/2011 Constitutional No diaphoresis 10/03/2011 Constitutional No fatigue 10/03/2011 Constitutional No fever 10/03/2011 Eyes No vision change 10/03/2011 Ears/Nose/Throat/Neck No dizziness 10/03/2011 Ears/Nose/Throat/Neck No dysphagia 10/03/2011 Cardiovascular No chest pain/pressure 10/03/2011 Cardiovascular No dyspnea 10/03/2011 Cardiovascular No edema 10/03/2011 Cardiovascular No fatigue 10/03/2011 Respiratory No chest congestion 10/03/2011 Respiratory No chest tightness 10/03/2011 Respiratory No cough 10/03/2011 Respiratory No dyspnea 10/03/2011 Gastrointestinal No anorexia 10/03/2011 Gastrointestinal No constipation 10/03/2011 Gastrointestinal No diarrhea 10/03/2011 Gastrointestinal No dyspepsia 10/03/2011 Gastrointestinal No dysphagia 10/03/2011 Musculoskeletal arthralgia(s) 10/03/2011 Musculoskeletal No myalgias 10/03/2011 Musculoskeletal neck pain 10/03/2011 Dermatologic rash 10/03/2011 Dermatologic No sores 10/03/2011 Neurologic No ataxia 10/03/2011 Neurologic No dizziness 10/03/2011 Neurologic No gait abnormality 10/03/2011 Psychiatric No anxiety 10/03/2011 Psychiatric No depression 10/03/2011 Constitutional No night sweats 08/08/2011 Constitutional No fever 08/08/2011 Constitutional No chills 08/08/2011 Constitutional No diaphoresis 08/08/2011 Constitutional No fatigue 08/08/2011 Eyes No vision change 08/08/2011 Ears/Nose/Throat/Neck No dizziness 08/08/2011 Ears/Nose/Throat/Neck No dysphagia 08/08/2011 Cardiovascular No chest pain/pressure 08/08/2011 Cardiovascular No dyspnea 08/08/2011 Cardiovascular No edema 08/08/2011 Cardiovascular No fatigue 08/08/2011 Respiratory No chest congestion 08/08/2011 Respiratory No chest tightness 08/08/2011 Respiratory No cough 08/08/2011 Respiratory No dyspnea 08/08/2011 Gastrointestinal No anorexia 08/08/2011 Gastrointestinal No constipation 08/08/2011 Gastrointestinal No diarrhea 08/08/2011 Gastrointestinal No dyspepsia 08/08/2011 Gastrointestinal No dysphagia 08/08/2011 Musculoskeletal No myalgias 08/08/2011 Musculoskeletal neck pain 08/08/2011 Dermatologic rash 08/08/2011 Dermatologic No sores 08/08/2011 Neurologic No ataxia 08/08/2011 Neurologic No dizziness 08/08/2011 Neurologic No gait abnormality 08/08/2011 Psychiatric No anxiety 08/08/2011 Psychiatric No depression 08/08/2011 Musculoskeletal arthralgia(s) 08/08/2011 Constitutional No chills 05/09/2011 Constitutional No fatigue 05/09/2011 Constitutional No fever 05/09/2011 Cardiovascular No chest pain/pressure 05/09/2011 Cardiovascular No edema 05/09/2011 Cardiovascular No fatigue 05/09/2011 Respiratory No chest congestion 05/09/2011 Respiratory No cough 05/09/2011 Respiratory No chest tightness 05/09/2011 Gastrointestinal No abdominal pain 05/09/2011 Gastrointestinal No dysphagia 05/09/2011 Gastrointestinal No dyspepsia 05/09/2011 Neurologic No ataxia 05/09/2011 Neurologic No dyskinesia or tremor 05/09/2011 Neurologic No dizziness 05/09/2011 Psychiatric No anxiety 05/09/2011 Psychiatric No depression 05/09/2011 Genitourinary/Nephrology No urinary frequency 05/09/2011 Genitourinary/Nephrology No urinary urgency 05/09/2011 Genitourinary/Nephrology No urinary incontinence 05/09/2011 Dermatologic No rash 05/09/2011 Constitutional No anorexia 03/29/2011 Constitutional No chills 03/29/2011 Constitutional No diaphoresis 03/29/2011 Constitutional No fatigue 03/29/2011 Ears/Nose/Throat/Neck No dizziness 03/29/2011 Ears/Nose/Throat/Neck No facial swelling 03/29/2011 Ears/Nose/Throat/Neck No headache 03/29/2011 Cardiovascular No dyspnea 03/29/2011 Cardiovascular No edema 03/29/2011 Cardiovascular No fatigue 03/29/2011 Respiratory No cough 03/29/2011 Respiratory No chest tightness 03/29/2011 Respiratory No chest congestion 03/29/2011 Gastrointestinal No constipation 03/29/2011 Gastrointestinal No diarrhea 03/29/2011 Genitourinary/Nephrology No urinary urgency 03/29/2011 Genitourinary/Nephrology No urinary frequency 03/29/2011 Dermatologic No rash 03/29/2011 Dermatologic No sores 03/29/2011 Neurologic No ataxia 03/29/2011 Neurologic No dizziness 03/29/2011 Psychiatric No anxiety 03/29/2011 Psychiatric No depression 03/29/2011 Constitutional No diaphoresis 03/15/2011 Constitutional No chills 03/15/2011 Constitutional No fatigue 03/15/2011 Constitutional No fever 03/15/2011 Constitutional weight loss 03/15/2011 Eyes No vision change 03/15/2011 Ears/Nose/Throat/Neck No dizziness 03/15/2011 Ears/Nose/Throat/Neck No dysphagia 03/15/2011 Cardiovascular No chest pain/pressure 03/15/2011 Cardiovascular No dyspnea 03/15/2011 Cardiovascular No edema 03/15/2011 Cardiovascular No fatigue 03/15/2011 Respiratory No chest congestion 03/15/2011 Respiratory No chest tightness 03/15/2011 Respiratory No cough 03/15/2011 Respiratory No dyspnea 03/15/2011 Gastrointestinal No anorexia 03/15/2011 Gastrointestinal No constipation 03/15/2011 Gastrointestinal No diarrhea 03/15/2011 Gastrointestinal No dyspepsia 03/15/2011 Gastrointestinal No dysphagia 03/15/2011 Musculoskeletal No myalgias 03/15/2011 Musculoskeletal neck pain 03/15/2011 Dermatologic No rash 03/15/2011 Dermatologic No sores 03/15/2011 Neurologic No ataxia 03/15/2011 Neurologic No dizziness 03/15/2011 Neurologic No gait abnormality 03/15/2011 Psychiatric No anxiety 03/15/2011 Psychiatric No depression 03/15/2011 Physical Exam Exam Name System Name Item Name Status Result Effective Dates Notes Full Exam - General Constitutional general appearance Overall: well nourished 12/06/2018 None Full Exam - General Constitutional general appearance Overall: well developed 12/06/2018 None Full Exam - General Constitutional general appearance Overall: in no acute distress 12/06/2018 None Full Exam - General Eyes pupils and irises Overall: pupils equal, round, reactive to light and accomodation 12/06/2018 None Full Exam - General Ears/Nose/Throat otoscopic exam Overall: external auditory canals clear 12/06/2018 None Full Exam - General Ears/Nose/Throat otoscopic exam Overall: tympanic membranes clear 12/06/2018 None Full Exam - General Ears/Nose/Throat oral cavity/pharynx/larynx Overall: oral mucosa clear 12/06/2018 None Full Exam - General Ears/Nose/Throat oral cavity/pharynx/larynx Overall: oropharyngeal mucosa clear 12/06/2018 None Full Exam - General Respiratory auscultation Overall: breath sounds clear bilaterally 12/06/2018 None Full Exam - General Respiratory respiratory effort/rhythm Overall: no retractions 12/06/2018 None Full Exam - General Respiratory respiratory effort/rhythm Overall: normal rate 12/06/2018 None Full Exam - General Cardiovascular auscultation of heart Rate: regular rate 12/06/2018 None Full Exam - General Cardiovascular auscultation of heart Rhythm: irregularly irregular rhythm 12/06/2018 None Full Exam - General Cardiovascular extremities Overall: no clubbing 12/06/2018 None Full Exam - General Cardiovascular extremities Edema present: pitting 12/06/2018 None Full Exam - General Abdomen abdominal exam Overall: normal bowel sounds 12/06/2018 None Full Exam - General Abdomen abdominal exam Left upper quadrant: non-tender to palpation 12/06/2018 None Full Exam - General Abdomen abdominal exam Left lower quadrant: non-tender to palpation 12/06/2018 None Full Exam - General Neurologic gait Overall: no ataxia, no unsteadiness 12/06/2018 None Full Exam - General Neurologic cranial nerves Overall: cranial nerves 1-12 intact 12/06/2018 None Full Exam - General Psychiatric orientation/consciousness Overall: oriented to person, place and time 12/06/2018 None Full Exam - General Psychiatric mood and affect Overall: normal mood and affect 12/06/2018 None Full Exam - General Psychiatric appearance Overall: well-groomed, good eye contact 12/06/2018 None Full Exam - General 1994 Constitutional general appearance Development: well developed 11/30/2018 None Full Exam - General 1994 Constitutional general appearance Development: appears stated age 0511/30/2018 None Full Exam - General 1994 Eyes conjunctiva/eyelids Cornea: corneal scar 11/30/2018 None Full Exam - General 1994 Eyes pupils and irises Pupil: round 11/30/2018 None Full Exam - General 1994 Eyes pupils and irises Pupil: reactive to light 11/30/2018 None Full Exam - General 1994 Respiratory auscultation Overall: breath sounds clear bilaterally 11/30/2018 None Full Exam - General 1994 Respiratory respiratory effort/rhythm Overall: no retractions 11/30/2018 None Full Exam - General 1994 Respiratory respiratory effort/rhythm Overall: normal rate 11/30/2018 None Full Exam - General 1994 Cardiovascular auscultation of heart Rhythm: regularly irregular rhythm 11/30/2018 None Full Exam - General 1994 Musculoskeletal head and neck Overall: head atraumatic 11/30/2018 None Full Exam - General 1994 Psychiatric orientation/consciousness Overall: oriented to person, place and time 11/30/2018 None Full Exam - General 1994 Psychiatric appearance Overall: well-groomed, good eye contact 11/30/2018 None Full Exam - General 1994 Psychiatric speech Overall: normal quality, no aphasia 11/30/2018 None Full Exam - ENT Ears/Nose/Throat otoscopic exam Overall: tympanic membranes normal 11/30/2018 None Full Exam - ENT Ears/Nose/Throat otoscopic exam Left external auditory canal: partial cerumen occlusion 11/30/2018 None Full Exam - ENT Ears/Nose/Throat otoscopic exam Right external auditory canal: partial cerumen occlusion 11/30/2018 None Full Exam - ENT Ears/Nose/Throat lips/teeth/gingiva Overall: benign lips 11/30/2018 None Full Exam - ENT Ears/Nose/Throat oropharynx Overall: oral mucosa clear 11/30/2018 None Full Exam - ENT Ears/Nose/Throat oropharynx Posterior Pharynx: erythema 11/30/2018 None Full Exam - ENT Neurologic mood and affect Overall: normal mood 11/30/2018 None Full Exam - ENT Neurologic mood and affect Overall: normal affect 11/30/2018 None Full Exam - ENT Neurologic orientation Overall: oriented to person, place and time 11/30/2018 None Full Exam - General Constitutional general appearance Overall: well nourished 10/31/2018 None Full Exam - General Constitutional general appearance Overall: well developed 10/31/2018 None Full Exam - General Constitutional general appearance Overall: in no acute distress 10/31/2018 None Full Exam - General Eyes pupils and irises Overall: pupils equal, round, reactive to light and accomodation 10/31/2018 None Full Exam - General Ears/Nose/Throat otoscopic exam Overall: external auditory canals clear 10/31/2018 None Full Exam - General Ears/Nose/Throat otoscopic exam Overall: tympanic membranes clear 10/31/2018 None Full Exam - General Ears/Nose/Throat oral cavity/pharynx/larynx Overall: oral mucosa clear 10/31/2018 None Full Exam - General Ears/Nose/Throat oral cavity/pharynx/larynx Overall: oropharyngeal mucosa clear 10/31/2018 None Full Exam - General Respiratory auscultation Overall: breath sounds clear bilaterally 10/31/2018 None Full Exam - General Respiratory respiratory effort/rhythm Overall: no retractions 10/31/2018 None Full Exam - General Respiratory respiratory effort/rhythm Overall: normal rate 10/31/2018 None Full Exam - General Cardiovascular auscultation of heart Rate: regular rate 10/31/2018 None Full Exam - General Cardiovascular auscultation of heart Rhythm: irregularly irregular rhythm 10/31/2018 None Full Exam - General Cardiovascular extremities Overall: no clubbing 10/31/2018 None Full Exam - General Cardiovascular extremities Edema present: pitting 10/31/2018 None Full Exam - General Abdomen abdominal exam Overall: normal bowel sounds 10/31/2018 None Full Exam - General Abdomen abdominal exam Left upper quadrant: non-tender to palpation 10/31/2018 None Full Exam - General Abdomen abdominal exam Left lower quadrant: non-tender to palpation 10/31/2018 None Full Exam - General Integument inspection of skin Dermatitis: dryness/flaking 10/31/2018 None Full Exam - General Neurologic gait Overall: no ataxia, no unsteadiness 10/31/2018 None Full Exam - General Neurologic cranial nerves Overall: cranial nerves 1-12 intact 10/31/2018 None Full Exam - General Psychiatric orientation/consciousness Overall: oriented to person, place and time 10/31/2018 None Full Exam - General Psychiatric mood and affect Overall: normal mood and affect 10/31/2018 None Full Exam - General Psychiatric appearance Overall: well-groomed, good eye contact 10/31/2018 None Full Exam - General 1994 Constitutional general appearance Development: well developed 10/09/2018 None Full Exam - General 1995 Constitutional general appearance Development: appears stated age 0410/09/2018 None Full Exam - General 1994 Eyes conjunctiva/eyelids Cornea: corneal scar 10/09/2018 None Full Exam - General 1995 Eyes pupils and irises Pupil: round 10/09/2018 None Full Exam - General 1995 Eyes pupils and irises Pupil: reactive to light 10/09/2018 None Full Exam - General 1994 Respiratory auscultation Overall: breath sounds clear bilaterally 10/09/2018 None Full Exam - General 1994 Respiratory respiratory effort/rhythm Overall: no retractions 10/09/2018 None Full Exam - General 1994 Respiratory respiratory effort/rhythm Overall: normal rate 10/09/2018 None Full Exam - General 1994 Cardiovascular auscultation of heart Rhythm: regularly irregular rhythm 10/09/2018 None Full Exam - General 1994 Musculoskeletal head and neck Overall: head atraumatic 10/09/2018 None Full Exam - General 1994 Musculoskeletal head and neck Overall: cervical spine benign 10/09/2018 None Full Exam - General 1994 Integument inspection of skin Location: right foot 10/09/2018 great toes Full Exam - General 1994 Psychiatric orientation/consciousness Overall: oriented to person, place and time 10/09/2018 None Full Exam - General 1994 Psychiatric appearance Overall: well-groomed, good eye contact 10/09/2018 None Full Exam - General 1994 Psychiatric speech Overall: normal quality, no aphasia 10/09/2018 None Full Exam - General 1994 Constitutional general appearance Development: well developed 09/12/2018 None Full Exam - General 1994 Constitutional general appearance Development: appears stated age 0309/12/2018 None Full Exam - General 1994 Eyes conjunctiva/eyelids Cornea: corneal scar 09/12/2018 None Full Exam - General 1994 Eyes pupils and irises Pupil: round 09/12/2018 None Full Exam - General 1994 Eyes pupils and irises Pupil: reactive to light 09/12/2018 None Full Exam - General 1994 Respiratory auscultation Overall: breath sounds clear bilaterally 09/12/2018 None Full Exam - General 1994 Respiratory respiratory effort/rhythm Overall: no retractions 09/12/2018 None Full Exam - General 1994 Respiratory respiratory effort/rhythm Overall: normal rate 09/12/2018 None Full Exam - General 1994 Cardiovascular auscultation of heart Rhythm: regularly irregular rhythm 09/12/2018 None Full Exam - General 1994 Musculoskeletal head and neck Overall: head atraumatic 09/12/2018 None Full Exam - General 1994 Psychiatric orientation/consciousness Overall: oriented to person, place and time 09/12/2018 None Full Exam - General 1994 Psychiatric appearance Overall: well-groomed, good eye contact 09/12/2018 None Full Exam - General 1994 Psychiatric speech Overall: normal quality, no aphasia 09/12/2018 None Full Exam - ENT Ears/Nose/Throat otoscopic exam Overall: tympanic membranes normal 09/12/2018 None Full Exam - ENT Ears/Nose/Throat lips/teeth/gingiva Overall: benign lips 09/12/2018 None Full Exam - ENT Ears/Nose/Throat otoscopic exam Left external auditory canal: partial cerumen occlusion 09/12/2018 None Full Exam - ENT Ears/Nose/Throat otoscopic exam Right external auditory canal: partial cerumen occlusion 09/12/2018 None Full Exam - ENT Ears/Nose/Throat oropharynx Overall: oral mucosa clear 09/12/2018 None Full Exam - ENT Ears/Nose/Throat oropharynx Posterior Pharynx: clear post nasal drainage 09/12/2018 None Full Exam - ENT Respiratory auscultation Diffuse: diminished 09/12/2018 None Full Exam - ENT Neurologic mood and affect Overall: normal affect 09/12/2018 None Full Exam - ENT Neurologic mood and affect Overall: normal mood 09/12/2018 None Full Exam - ENT Neurologic orientation Overall: oriented to person, place and time 09/12/2018 None Full Exam - General 1994 Constitutional general appearance Development: well developed 08/14/2018 None Full Exam - General 1994 Constitutional general appearance Development: appears stated age 0208/14/2018 None Full Exam - General 1994 Eyes conjunctiva/eyelids Cornea: corneal scar 08/14/2018 None Full Exam - General 1994 Eyes pupils and irises Pupil: round 08/14/2018 None Full Exam - General 1994 Eyes pupils and irises Pupil: reactive to light 08/14/2018 None Full Exam - General 1994 Respiratory auscultation Overall: breath sounds clear bilaterally 08/14/2018 None Full Exam - General 1994 Respiratory respiratory effort/rhythm Overall: no retractions 08/14/2018 None Full Exam - General 1994 Respiratory respiratory effort/rhythm Overall: normal rate 08/14/2018 None Full Exam - General 1994 Cardiovascular auscultation of heart Rhythm: regularly irregular rhythm 08/14/2018 None Full Exam - General 1994 Musculoskeletal head and neck Overall: head atraumatic 08/14/2018 None Full Exam - General 1994 Musculoskeletal head and neck Overall: cervical spine benign 08/14/2018 None Full Exam - General 1994 Psychiatric orientation/consciousness Overall: oriented to person, place and time 08/14/2018 None Full Exam - General 1994 Psychiatric appearance Overall: well-groomed, good eye contact 08/14/2018 None Full Exam - General 1994 Psychiatric speech Overall: normal quality, no aphasia 08/14/2018 None Full Exam - General 1994 Integument inspection of skin Location: right foot 08/14/2018 great toes Full Exam - General 1994 Constitutional general appearance Development: well developed 07/26/2018 None Full Exam - General 1994 Constitutional general appearance Development: appears stated age 0107/26/2018 None Full Exam - General 1994 Eyes conjunctiva/eyelids Cornea: corneal scar 07/26/2018 None Full Exam - General 1994 Eyes pupils and irises Pupil: round 07/26/2018 None Full Exam - General 1994 Eyes pupils and irises Pupil: reactive to light 07/26/2018 None Full Exam - General 1994 Respiratory auscultation Overall: breath sounds clear bilaterally 07/26/2018 None Full Exam - General 1994 Respiratory respiratory effort/rhythm Overall: no retractions 07/26/2018 None Full Exam - General 1994 Respiratory respiratory effort/rhythm Overall: normal rate 07/26/2018 None Full Exam - General 1994 Cardiovascular auscultation of heart Rhythm: regularly irregular rhythm 07/26/2018 None Full Exam - General 1994 Abdomen abdominal exam Overall: no tenderness 07/26/2018 None Full Exam - General 1994 Abdomen abdominal exam Overall: normal bowel sounds 07/26/2018 None Full Exam - General 1994 Musculoskeletal head and neck Overall: head atraumatic 07/26/2018 None Full Exam - General 1994 Musculoskeletal head and neck Overall: cervical spine benign 07/26/2018 None Full Exam - General 1994 Psychiatric orientation/consciousness Overall: oriented to person, place and time 07/26/2018 None Full Exam - General 1994 Psychiatric appearance Overall: well-groomed, good eye contact 07/26/2018 None Full Exam - General 1994 Psychiatric speech Overall: normal quality, no aphasia 07/26/2018 None Full Exam - General 1994 Integument inspection of skin Location: inguinal area 07/26/2018 on left labia at 5 oclock position - sebaceous cyst Full Exam - General 1994 Constitutional general appearance Development: well developed 06/04/2018 None Full Exam - General 1994 Constitutional general appearance Development: appears stated age 1106/04/2018 None Full Exam - General 1994 Eyes conjunctiva/eyelids Cornea: corneal scar 06/04/2018 None Full Exam - General 1994 Eyes pupils and irises Pupil: round 06/04/2018 None Full Exam - General 1994 Eyes pupils and irises Pupil: reactive to light 06/04/2018 None Full Exam - General 1994 Ears/Nose/Throat external ear Overall: normal appearance 06/04/2018 None Full Exam - General 1994 Ears/Nose/Throat external ear Overall: no masses 06/04/2018 None Full Exam - General 1994 Ears/Nose/Throat external ear Overall: normal mastoids 06/04/2018 None Full Exam - General 1994 Ears/Nose/Throat otoscopic exam Overall: external auditory canals clear 06/04/2018 None Full Exam - General 1994 Ears/Nose/Throat otoscopic exam Overall: tympanic membranes clear 06/04/2018 None Full Exam - General 1994 Ears/Nose/Throat lips/teeth/gingiva Overall: benign lips 06/04/2018 None Full Exam - General 1994 Ears/Nose/Throat oral cavity/pharynx/larynx Overall: oral mucosa clear 06/04/2018 None Full Exam - General 1994 Respiratory auscultation Overall: breath sounds clear bilaterally 06/04/2018 None Full Exam - General 1994 Respiratory respiratory effort/rhythm Overall: no retractions 06/04/2018 None Full Exam - General 1994 Respiratory respiratory effort/rhythm Overall: normal rate 06/04/2018 None Full Exam - General 1994 Cardiovascular auscultation of heart Rhythm: regularly irregular rhythm 06/04/2018 None Full Exam - General 1994 Abdomen abdominal exam Overall: no tenderness 06/04/2018 None Full Exam - General 1994 Abdomen abdominal exam Overall: normal bowel sounds 06/04/2018 None Full Exam - General 1994 Lymphatic neck nodes Overall: anterior cervical chain benign 06/04/2018 None Full Exam - General 1994 Lymphatic neck nodes Overall: posterior cervical chain benign 06/04/2018 None Full Exam - General 1994 Musculoskeletal head and neck Overall: head atraumatic 06/04/2018 None Full Exam - General 1994 Musculoskeletal head and neck Overall: cervical spine benign 06/04/2018 None Full Exam - General 1994 Neurologic mental status Overall: alert 06/04/2018 None Full Exam - General 1994 Neurologic mental status Overall: oriented 06/04/2018 None Full Exam - General 1994 Neurologic motor Overall: normal bulk, tone 06/04/2018 None Full Exam - General 1994 Psychiatric orientation/consciousness Overall: oriented to person, place and time 06/04/2018 None Full Exam - General 1994 Psychiatric appearance Overall: well-groomed, good eye contact 06/04/2018 None Full Exam - General 1994 Psychiatric speech Overall: normal quality, no aphasia 06/04/2018 None Full Exam - General 1994 Constitutional general appearance Development: well developed 01/31/2018 None Full Exam - General 1994 Constitutional general appearance Development: appears stated age 0701/31/2018 None Full Exam - General 1994 Eyes conjunctiva/eyelids Cornea: corneal scar 01/31/2018 None Full Exam - General 1994 Eyes pupils and irises Pupil: round 01/31/2018 None Full Exam - General 1994 Eyes pupils and irises Pupil: reactive to light 01/31/2018 None Full Exam - General 1994 Ears/Nose/Throat external ear Overall: normal appearance 01/31/2018 None Full Exam - General 1994 Ears/Nose/Throat external ear Overall: no masses 01/31/2018 None Full Exam - General 1994 Ears/Nose/Throat external ear Overall: normal mastoids 01/31/2018 None Full Exam - General 1994 Ears/Nose/Throat otoscopic exam Overall: external auditory canals clear 01/31/2018 None Full Exam - General 1994 Ears/Nose/Throat otoscopic exam Overall: tympanic membranes clear 01/31/2018 None Full Exam - General 1994 Ears/Nose/Throat lips/teeth/gingiva Overall: benign lips 01/31/2018 None Full Exam - General 1994 Ears/Nose/Throat oral cavity/pharynx/larynx Overall: oral mucosa clear 01/31/2018 None Full Exam - General 1994 Respiratory auscultation Overall: breath sounds clear bilaterally 01/31/2018 None Full Exam - General 1994 Respiratory respiratory effort/rhythm Overall: no retractions 01/31/2018 None Full Exam - General 1994 Respiratory respiratory effort/rhythm Overall: normal rate 01/31/2018 None Full Exam - General 1994 Cardiovascular auscultation of heart Rhythm: regularly irregular rhythm 01/31/2018 None Full Exam - General 1994 Abdomen abdominal exam Overall: no tenderness 01/31/2018 None Full Exam - General 1994 Abdomen abdominal exam Overall: normal bowel sounds 01/31/2018 None Full Exam - General 1994 Lymphatic neck nodes Overall: posterior cervical chain benign 01/31/2018 None Full Exam - General 1994 Musculoskeletal head and neck Overall: head atraumatic 01/31/2018 None Full Exam - General 1994 Musculoskeletal head and neck Overall: cervical spine benign 01/31/2018 None Full Exam - General 1994 Neurologic mental status Overall: oriented 01/31/2018 None Full Exam - General 1994 Neurologic motor Overall: normal bulk, tone 01/31/2018 None Full Exam - General 1994 Psychiatric orientation/consciousness Overall: oriented to person, place and time 01/31/2018 None Full Exam - General 1994 Psychiatric appearance Overall: well-groomed, good eye contact 01/31/2018 None Full Exam - General 1994 Psychiatric speech Overall: normal quality, no aphasia 01/31/2018 None Full Exam - General 1994 Lymphatic neck nodes Overall: anterior cervical chain benign 01/31/2018 None Full Exam - General 1994 Neurologic mental status Overall: alert 01/31/2018 None Full Exam - General 1994 Constitutional general appearance Overall: well developed 01/17/2018 None Full Exam - General 1994 Constitutional general appearance Overall: in no acute distress 01/17/2018 None Full Exam - General 1994 Constitutional general appearance Overall: well nourished 01/17/2018 None Full Exam - General 1994 Eyes conjunctiva/eyelids Overall: conjunctiva clear 01/17/2018 None Full Exam - General 1994 Eyes conjunctiva/eyelids Overall: eyelids normal 01/17/2018 None Full Exam - General 1994 Ears/Nose/Throat lips/teeth/gingiva Overall: benign lips 01/17/2018 None Full Exam - General 1994 Respiratory respiratory effort/rhythm Overall: no retractions 01/17/2018 None Full Exam - General 1994 Respiratory respiratory effort/rhythm Overall: normal rate 01/17/2018 None Full Exam - General 1994 Musculoskeletal head and neck Overall: head atraumatic 01/17/2018 None Full Exam - General 1994 Neurologic cranial nerves Overall: crainial nerves 2 - 12 grossly intact 01/17/2018 None Full Exam - General 1994 Psychiatric orientation/consciousness Overall: oriented to person, place and time 01/17/2018 None Full Exam - General 1994 Psychiatric mood and affect Overall: normal mood and affect 01/17/2018 None Full Exam - General 1994 Psychiatric appearance Overall: well-groomed, good eye contact 01/17/2018 None Full Exam - General 1994 Constitutional general appearance Development: well developed 12/14/2017 None Full Exam - General 1994 Constitutional general appearance Development: appears stated age 0612/14/2017 None Full Exam - General 1994 Eyes conjunctiva/eyelids Cornea: corneal scar 12/14/2017 None Full Exam - General 1994 Eyes pupils and irises Pupil: round 12/14/2017 None Full Exam - General 1994 Eyes pupils and irises Pupil: reactive to light 12/14/2017 None Full Exam - General 1994 Ears/Nose/Throat external ear Overall: normal appearance 12/14/2017 None Full Exam - General 1994 Ears/Nose/Throat external ear Overall: no masses 12/14/2017 None Full Exam - General 1994 Ears/Nose/Throat external ear Overall: normal mastoids 12/14/2017 None Full Exam - General 1994 Ears/Nose/Throat otoscopic exam Overall: external auditory canals clear 12/14/2017 None Full Exam - General 1994 Ears/Nose/Throat otoscopic exam Overall: tympanic membranes clear 12/14/2017 None Full Exam - General 1994 Ears/Nose/Throat lips/teeth/gingiva Overall: benign lips 12/14/2017 None Full Exam - General 1994 Ears/Nose/Throat oral cavity/pharynx/larynx Overall: oral mucosa clear 12/14/2017 None Full Exam - General 1994 Respiratory auscultation Overall: breath sounds clear bilaterally 12/14/2017 None Full Exam - General 1994 Respiratory respiratory effort/rhythm Overall: no retractions 12/14/2017 None Full Exam - General 1994 Respiratory respiratory effort/rhythm Overall: normal rate 12/14/2017 None Full Exam - General 1994 Cardiovascular auscultation of heart Rhythm: regularly irregular rhythm 12/14/2017 None Full Exam - General 1994 Abdomen abdominal exam Overall: no tenderness 12/14/2017 None Full Exam - General 1994 Abdomen abdominal exam Overall: normal bowel sounds 12/14/2017 None Full Exam - General 1994 Lymphatic neck nodes Overall: anterior cervical chain benign 12/14/2017 None Full Exam - General 1994 Lymphatic neck nodes Overall: posterior cervical chain benign 12/14/2017 None Full Exam - General 1994 Musculoskeletal head and neck Overall: head atraumatic 12/14/2017 None Full Exam - General 1994 Musculoskeletal head and neck Overall: cervical spine benign 12/14/2017 None Full Exam - General 1994 Integument inspection of skin Location: right arm 12/14/2017 foerarm- sutures x 5 Full Exam - General 1994 Integument inspection of skin Overall: few scattered moles, no gross abnormalities 12/14/2017 None Full Exam - General 1994 Neurologic mental status Overall: alert 12/14/2017 None Full Exam - General 1994 Neurologic mental status Overall: oriented 12/14/2017 None Full Exam - General 1994 Neurologic motor Overall: normal bulk, tone 12/14/2017 None Full Exam - General 1994 Psychiatric orientation/consciousness Overall: oriented to person, place and time 12/14/2017 None Full Exam - General 1994 Psychiatric appearance Overall: well-groomed, good eye contact 12/14/2017 None Full Exam - General 1994 Psychiatric speech Overall: normal quality, no aphasia 12/14/2017 None Full Exam - General 1994 Eyes conjunctiva/eyelids Cornea: corneal scar 12/07/2017 None Full Exam - General 1994 Eyes pupils and irises Pupil: round 12/07/2017 None Full Exam - General 1994 Eyes pupils and irises Pupil: reactive to light 12/07/2017 None Full Exam - General 1994 Ears/Nose/Throat otoscopic exam Overall: external auditory canals clear 12/07/2017 None Full Exam - General 1994 Ears/Nose/Throat otoscopic exam Overall: tympanic membranes clear 12/07/2017 None Full Exam - General 1994 Ears/Nose/Throat lips/teeth/gingiva Overall: benign lips 12/07/2017 None Full Exam - General 1994 Ears/Nose/Throat oral cavity/pharynx/larynx Overall: oral mucosa clear 12/07/2017 None Full Exam - General 1994 Respiratory auscultation Overall: breath sounds clear bilaterally 12/07/2017 None Full Exam - General 1994 Respiratory respiratory effort/rhythm Overall: no retractions 12/07/2017 None Full Exam - General 1994 Respiratory respiratory effort/rhythm Overall: normal rate 12/07/2017 None Full Exam - General 1994 Cardiovascular auscultation of heart Rhythm: regularly irregular rhythm 12/07/2017 None Full Exam - General 1994 Abdomen abdominal exam Overall: normal bowel sounds 12/07/2017 None Full Exam - General 1994 Lymphatic neck nodes Overall: anterior cervical chain benign 12/07/2017 None Full Exam - General 1994 Lymphatic neck nodes Overall: posterior cervical chain benign 12/07/2017 None Full Exam - General 1994 Musculoskeletal head and neck Overall: head atraumatic 12/07/2017 None Full Exam - General 1994 Musculoskeletal head and neck Overall: cervical spine benign 12/07/2017 None Full Exam - General 1994 Psychiatric orientation/consciousness Overall: oriented to person, place and time 12/07/2017 None Full Exam - General 1994 Psychiatric appearance Overall: well-groomed, good eye contact 12/07/2017 None Full Exam - General 1994 Constitutional general appearance Overall: well developed 12/07/2017 None Full Exam - General 1994 Constitutional general appearance Overall: in no acute distress 12/07/2017 None Full Exam - General 1994 Constitutional general appearance Overall: well nourished 12/07/2017 None Full Exam - General 1994 Ears/Nose/Throat oral cavity/pharynx/larynx Posterior Pharynx: clear post nasal drainage 12/07/2017 None Full Exam - General 1994 Ears/Nose/Throat oral cavity/pharynx/larynx Oropharynx: erythema 12/07/2017 None Full Exam - General 1994 Psychiatric mood and affect Overall: normal mood and affect 12/07/2017 None Full Exam - General 1994 Constitutional general appearance Development: well developed 11/14/2017 None Full Exam - General 1994 Constitutional general appearance Development: appears stated age 0511/14/2017 None Full Exam - General 1994 Eyes conjunctiva/eyelids Cornea: corneal scar 11/14/2017 None Full Exam - General 1994 Eyes pupils and irises Pupil: round 11/14/2017 None Full Exam - General 1994 Eyes pupils and irises Pupil: reactive to light 11/14/2017 None Full Exam - General 1994 Ears/Nose/Throat external ear Overall: normal appearance 11/14/2017 None Full Exam - General 1994 Ears/Nose/Throat external ear Overall: no masses 11/14/2017 None Full Exam - General 1994 Ears/Nose/Throat external ear Overall: normal mastoids 11/14/2017 None Full Exam - General 1994 Ears/Nose/Throat otoscopic exam Overall: external auditory canals clear 11/14/2017 None Full Exam - General 1994 Ears/Nose/Throat otoscopic exam Overall: tympanic membranes clear 11/14/2017 None Full Exam - General 1994 Ears/Nose/Throat lips/teeth/gingiva Overall: benign lips 11/14/2017 None Full Exam - General 1994 Ears/Nose/Throat oral cavity/pharynx/larynx Overall: oral mucosa clear 11/14/2017 None Full Exam - General 1994 Respiratory auscultation Overall: breath sounds clear bilaterally 11/14/2017 None Full Exam - General 1994 Respiratory respiratory effort/rhythm Overall: no retractions 11/14/2017 None Full Exam - General 1994 Respiratory respiratory effort/rhythm Overall: normal rate 11/14/2017 None Full Exam - General 1994 Cardiovascular auscultation of heart Rhythm: regularly irregular rhythm 11/14/2017 None Full Exam - General 1994 Abdomen abdominal exam Overall: no tenderness 11/14/2017 None Full Exam - General 1994 Abdomen abdominal exam Overall: normal bowel sounds 11/14/2017 None Full Exam - General 1994 Lymphatic neck nodes Overall: anterior cervical chain benign 11/14/2017 None Full Exam - General 1994 Lymphatic neck nodes Overall: posterior cervical chain benign 11/14/2017 None Full Exam - General 1994 Musculoskeletal head and neck Overall: head atraumatic 11/14/2017 None Full Exam - General 1994 Musculoskeletal head and neck Overall: cervical spine benign 11/14/2017 None Full Exam - General 1994 Integument inspection of skin Location: right arm 11/14/2017 foerarm- sutures x 5 Full Exam - General 1994 Integument inspection of skin Overall: few scattered moles, no gross abnormalities 11/14/2017 None Full Exam - General 1994 Neurologic mental status Overall: alert 11/14/2017 None Full Exam - General 1994 Neurologic mental status Overall: oriented 11/14/2017 None Full Exam - General 1994 Neurologic motor Overall: normal bulk, tone 11/14/2017 None Full Exam - General 1994 Psychiatric orientation/consciousness Overall: oriented to person, place and time 11/14/2017 None Full Exam - General 1994 Psychiatric appearance Overall: well-groomed, good eye contact 11/14/2017 None Full Exam - General 1994 Psychiatric speech Overall: normal quality, no aphasia 11/14/2017 None Full Exam - General 1994 Constitutional general appearance Development: well developed 03/27/2017 None Full Exam - General 1994 Constitutional general appearance Development: appears stated age 0903/27/2017 None Full Exam - General 1994 Eyes conjunctiva/eyelids Cornea: corneal scar 03/27/2017 None Full Exam - General 1994 Eyes pupils and irises Pupil: round 03/27/2017 None Full Exam - General 1994 Eyes pupils and irises Pupil: reactive to light 03/27/2017 None Full Exam - General 1994 Ears/Nose/Throat external ear Overall: normal appearance 03/27/2017 None Full Exam - General 1994 Ears/Nose/Throat external ear Overall: no masses 03/27/2017 None Full Exam - General 1994 Ears/Nose/Throat external ear Overall: normal mastoids 03/27/2017 None Full Exam - General 1994 Ears/Nose/Throat otoscopic exam Overall: external auditory canals clear 03/27/2017 None Full Exam - General 1994 Ears/Nose/Throat otoscopic exam Overall: tympanic membranes clear 03/27/2017 None Full Exam - General 1994 Ears/Nose/Throat lips/teeth/gingiva Overall: benign lips 03/27/2017 None Full Exam - General 1994 Ears/Nose/Throat oral cavity/pharynx/larynx Overall: oral mucosa clear 03/27/2017 None Full Exam - General 1994 Respiratory auscultation Overall: breath sounds clear bilaterally 03/27/2017 None Full Exam - General 1994 Respiratory respiratory effort/rhythm Overall: no retractions 03/27/2017 None Full Exam - General 1994 Respiratory respiratory effort/rhythm Overall: normal rate 03/27/2017 None Full Exam - General 1994 Cardiovascular auscultation of heart Rhythm: regularly irregular rhythm 03/27/2017 None Full Exam - General 1994 Abdomen abdominal exam Overall: no tenderness 03/27/2017 None Full Exam - General 1994 Abdomen abdominal exam Overall: normal bowel sounds 03/27/2017 None Full Exam - General 1994 Musculoskeletal head and neck Overall: head atraumatic 03/27/2017 None Full Exam - General 1994 Musculoskeletal head and neck Overall: cervical spine benign 03/27/2017 None Full Exam - General 1994 Integument inspection of skin Location: right arm 03/27/2017 foerarm- sutures x 5 Full Exam - General 1994 Integument inspection of skin Overall: few scattered moles, no gross abnormalities 03/27/2017 None Full Exam - General 1994 Neurologic mental status Overall: alert 03/27/2017 None Full Exam - General 1994 Neurologic mental status Overall: oriented 03/27/2017 None Full Exam - General 1994 Neurologic motor Overall: normal bulk, tone 03/27/2017 None Full Exam - General 1994 Psychiatric orientation/consciousness Overall: oriented to person, place and time 03/27/2017 None Full Exam - General 1994 Psychiatric appearance Overall: well-groomed, good eye contact 03/27/2017 None Full Exam - General 1994 Psychiatric speech Overall: normal quality, no aphasia 03/27/2017 None Full Exam - General 1994 Constitutional general appearance Overall: well developed 01/23/2017 None Full Exam - General 1994 Constitutional general appearance Overall: in no acute distress 01/23/2017 None Full Exam - General 1994 Constitutional general appearance Overall: well nourished 01/23/2017 None Full Exam - General 1994 Eyes conjunctiva/eyelids Overall: conjunctiva clear 01/23/2017 None Full Exam - General 1994 Eyes conjunctiva/eyelids Overall: eyelids normal 01/23/2017 None Full Exam - General 1994 Ears/Nose/Throat lips/teeth/gingiva Overall: benign lips 01/23/2017 None Full Exam - General 1994 Ears/Nose/Throat oral cavity/pharynx/larynx Overall: oral mucosa clear 01/23/2017 None Full Exam - General 1994 Respiratory respiratory effort/rhythm Overall: no retractions 01/23/2017 None Full Exam - General 1994 Respiratory respiratory effort/rhythm Overall: normal rate 01/23/2017 None Full Exam - General 1994 Musculoskeletal head and neck Overall: head atraumatic 01/23/2017 None Full Exam - General 1994 Musculoskeletal gait and station Overall: normal gait 01/23/2017 None Full Exam - General 1994 Musculoskeletal gait and station Overall: normal station 01/23/2017 None Full Exam - General 1994 Neurologic cranial nerves Overall: crainial nerves 2 - 12 grossly intact 01/23/2017 None Full Exam - General 1994 Psychiatric orientation/consciousness Overall: oriented to person, place and time 01/23/2017 None Full Exam - General 1994 Psychiatric mood and affect Overall: normal mood and affect 01/23/2017 None Full Exam - General 1994 Psychiatric appearance Overall: well-groomed, good eye contact 01/23/2017 None Full Exam - General 1994 Constitutional general appearance Development: well developed 01/19/2017 None Full Exam - General 1994 Constitutional general appearance Development: appears stated age 0701/19/2017 None Full Exam - General 1994 Eyes conjunctiva/eyelids Cornea: corneal scar 01/19/2017 None Full Exam - General 1994 Eyes pupils and irises Pupil: round 01/19/2017 None Full Exam - General 1994 Eyes pupils and irises Pupil: reactive to light 01/19/2017 None Full Exam - General 1994 Ears/Nose/Throat external ear Overall: normal appearance 01/19/2017 None Full Exam - General 1994 Ears/Nose/Throat external ear Overall: no masses 01/19/2017 None Full Exam - General 1994 Ears/Nose/Throat external ear Overall: normal mastoids 01/19/2017 None Full Exam - General 1994 Ears/Nose/Throat otoscopic exam Overall: external auditory canals clear 01/19/2017 None Full Exam - General 1994 Ears/Nose/Throat otoscopic exam Overall: tympanic membranes clear 01/19/2017 None Full Exam - General 1994 Ears/Nose/Throat lips/teeth/gingiva Overall: benign lips 01/19/2017 None Full Exam - General 1994 Ears/Nose/Throat oral cavity/pharynx/larynx Overall: oral mucosa clear 01/19/2017 None Full Exam - General 1994 Respiratory auscultation Overall: breath sounds clear bilaterally 01/19/2017 None Full Exam - General 1994 Respiratory respiratory effort/rhythm Overall: no retractions 01/19/2017 None Full Exam - General 1994 Respiratory respiratory effort/rhythm Overall: normal rate 01/19/2017 None Full Exam - General 1994 Cardiovascular auscultation of heart Rhythm: regularly irregular rhythm 01/19/2017 None Full Exam - General 1994 Abdomen abdominal exam Overall: no tenderness 01/19/2017 None Full Exam - General 1994 Abdomen abdominal exam Overall: normal bowel sounds 01/19/2017 None Full Exam - General 1994 Lymphatic neck nodes Overall: anterior cervical chain benign 01/19/2017 None Full Exam - General 1994 Lymphatic neck nodes Overall: posterior cervical chain benign 01/19/2017 None Full Exam - General 1994 Musculoskeletal head and neck Overall: head atraumatic 01/19/2017 None Full Exam - General 1994 Musculoskeletal head and neck Overall: cervical spine benign 01/19/2017 None Full Exam - General 1994 Integument inspection of skin Location: right arm 01/19/2017 foerarm- sutures x 5 Full Exam - General 1994 Integument inspection of skin Overall: few scattered moles, no gross abnormalities 01/19/2017 None Full Exam - General 1994 Neurologic mental status Overall: alert 01/19/2017 None Full Exam - General 1994 Neurologic mental status Overall: oriented 01/19/2017 None Full Exam - General 1994 Neurologic motor Overall: normal bulk, tone 01/19/2017 None Full Exam - General 1994 Psychiatric orientation/consciousness Overall: oriented to person, place and time 01/19/2017 None Full Exam - General 1994 Psychiatric appearance Overall: well-groomed, good eye contact 01/19/2017 None Full Exam - General 1994 Psychiatric speech Overall: normal quality, no aphasia 01/19/2017 None Full Exam - ENT Constitutional general appearance Overall: well nourished 11/29/2016 None Full Exam - ENT Constitutional general appearance Overall: well developed 11/29/2016 None Full Exam - ENT Constitutional general appearance Overall: in no acute distress 11/29/2016 None Full Exam - ENT Ears/Nose/Throat otoscopic exam Overall: external auditory canals normal 11/29/2016 None Full Exam - ENT Ears/Nose/Throat otoscopic exam Overall: tympanic membranes normal 11/29/2016 None Full Exam - ENT Ears/Nose/Throat oropharynx Posterior Pharynx: erythema 11/29/2016 mild Full Exam - ENT Face and Head palpation Overall: no sinus tenderness 11/29/2016 None Full Exam - ENT Respiratory inspection Overall: no retractions 11/29/2016 None Full Exam - ENT Respiratory inspection Overall: normal rate 11/29/2016 None Full Exam - ENT Respiratory auscultation Overall: breath sounds clear bilaterally 11/29/2016 None Full Exam - ENT Cardiovascular auscultation of heart Rhythm: irregularly irregular rhythm 11/29/2016 None Full Exam - ENT Lymphatic palpation of lymph nodes Overall: anterior cervical chain benign 11/29/2016 None Full Exam - ENT Lymphatic palpation of lymph nodes Overall: posterior cervical chain benign 11/29/2016 None Full Exam - ENT Neurologic orientation Overall: oriented to person, place and time 11/29/2016 None Full Exam - ENT Integument inspection of skin Location: right arm 11/29/2016 wound is healed Full Exam - ENT Constitutional general appearance Overall: well nourished 11/23/2016 None Full Exam - ENT Constitutional general appearance Overall: well developed 11/23/2016 None Full Exam - ENT Constitutional general appearance Overall: in no acute distress 11/23/2016 None Full Exam - ENT Ears/Nose/Throat otoscopic exam Overall: external auditory canals normal 11/23/2016 None Full Exam - ENT Ears/Nose/Throat otoscopic exam Overall: tympanic membranes normal 11/23/2016 None Full Exam - ENT Ears/Nose/Throat oropharynx Posterior Pharynx: erythema 11/23/2016 mild Full Exam - ENT Face and Head palpation Overall: no sinus tenderness 11/23/2016 None Full Exam - ENT Respiratory inspection Overall: no retractions 11/23/2016 None Full Exam - ENT Respiratory inspection Overall: normal rate 11/23/2016 None Full Exam - ENT Respiratory auscultation Overall: breath sounds clear bilaterally 11/23/2016 None Full Exam - ENT Cardiovascular auscultation of heart Rhythm: irregularly irregular rhythm 11/23/2016 None Full Exam - ENT Lymphatic palpation of lymph nodes Overall: anterior cervical chain benign 11/23/2016 None Full Exam - ENT Lymphatic palpation of lymph nodes Overall: posterior cervical chain benign 11/23/2016 None Full Exam - ENT Neurologic orientation Overall: oriented to person, place and time 11/23/2016 None Full Exam - ENT Ears/Nose/Throat oropharynx Posterior Pharynx: clear post nasal drainage 11/23/2016 None Full Exam - ENT Constitutional general appearance Overall: well nourished 11/21/2016 None Full Exam - ENT Constitutional general appearance Overall: well developed 11/21/2016 None Full Exam - ENT Constitutional general appearance Overall: in no acute distress 11/21/2016 None Full Exam - ENT Neurologic orientation Overall: oriented to person, place and time 11/21/2016 None Full Exam - ENT Lymphatic palpation of lymph nodes Overall: posterior cervical chain benign 11/21/2016 None Full Exam - ENT Lymphatic palpation of lymph nodes Overall: anterior cervical chain benign 11/21/2016 None Full Exam - ENT Cardiovascular auscultation of heart Rhythm: irregularly irregular rhythm 11/21/2016 None Full Exam - ENT Respiratory inspection Overall: no retractions 11/21/2016 None Full Exam - ENT Respiratory inspection Overall: normal rate 11/21/2016 None Full Exam - ENT Respiratory auscultation Overall: breath sounds clear bilaterally 11/21/2016 None Full Exam - ENT Face and Head palpation Overall: no sinus tenderness 11/21/2016 None Full Exam - ENT Ears/Nose/Throat otoscopic exam Overall: external auditory canals normal 11/21/2016 None Full Exam - ENT Ears/Nose/Throat otoscopic exam Overall: tympanic membranes normal 11/21/2016 None Full Exam - ENT Ears/Nose/Throat oropharynx Posterior Pharynx: erythema 11/21/2016 mild Full Exam - General 1994 Integument inspection of skin Location: right arm 11/08/2016 foerarm- sutures x 5 Full Exam - General 1994 Psychiatric orientation/consciousness Overall: oriented to person, place and time 11/08/2016 None Full Exam - General 1994 Cardiovascular auscultation of heart Rhythm: regularly irregular rhythm 11/08/2016 None Full Exam - General 1994 Constitutional general appearance Development: well developed 11/08/2016 None Full Exam - General 1994 Constitutional general appearance Development: appears stated age 0511/08/2016 None Full Exam - General 1994 Constitutional general appearance Development: well developed 11/02/2016 None Full Exam - General 1994 Constitutional general appearance Development: appears stated age 0411/02/2016 None Full Exam - General 1994 Eyes conjunctiva/eyelids Cornea: corneal scar 11/02/2016 None Full Exam - General 1994 Eyes pupils and irises Pupil: round 11/02/2016 None Full Exam - General 1994 Eyes pupils and irises Pupil: reactive to light 11/02/2016 None Full Exam - General 1994 Ears/Nose/Throat external ear Overall: normal appearance 11/02/2016 None Full Exam - General 1994 Ears/Nose/Throat external ear Overall: no masses 11/02/2016 None Full Exam - General 1994 Ears/Nose/Throat external ear Overall: normal mastoids 11/02/2016 None Full Exam - General 1994 Ears/Nose/Throat otoscopic exam Overall: external auditory canals clear 11/02/2016 None Full Exam - General 1994 Ears/Nose/Throat otoscopic exam Overall: tympanic membranes clear 11/02/2016 None Full Exam - General 1994 Ears/Nose/Throat lips/teeth/gingiva Overall: benign lips 11/02/2016 None Full Exam - General 1994 Ears/Nose/Throat oral cavity/pharynx/larynx Overall: oral mucosa clear 11/02/2016 None Full Exam - General 1994 Respiratory auscultation Overall: breath sounds clear bilaterally 11/02/2016 None Full Exam - General 1994 Respiratory respiratory effort/rhythm Overall: no retractions 11/02/2016 None Full Exam - General 1994 Respiratory respiratory effort/rhythm Overall: normal rate 11/02/2016 None Full Exam - General 1994 Cardiovascular auscultation of heart Rhythm: regularly irregular rhythm 11/02/2016 None Full Exam - General 1994 Abdomen abdominal exam Overall: no tenderness 11/02/2016 None Full Exam - General 1994 Abdomen abdominal exam Overall: normal bowel sounds 11/02/2016 None Full Exam - General 1994 Lymphatic neck nodes Overall: anterior cervical chain benign 11/02/2016 None Full Exam - General 1994 Lymphatic neck nodes Overall: posterior cervical chain benign 11/02/2016 None Full Exam - General 1994 Musculoskeletal gait and station Overall: normal gait 11/02/2016 None Full Exam - General 1994 Musculoskeletal gait and station Overall: normal station 11/02/2016 None Full Exam - General 1994 Musculoskeletal head and neck Overall: head atraumatic 11/02/2016 None Full Exam - General 1994 Musculoskeletal head and neck Overall: cervical spine benign 11/02/2016 None Full Exam - General 1994 Integument inspection of skin Location: right arm 11/02/2016 foerarm- sutures x 5 Full Exam - General 1994 Integument inspection of skin Overall: few scattered moles, no gross abnormalities 11/02/2016 None Full Exam - General 1994 Neurologic mental status Overall: alert 11/02/2016 None Full Exam - General 1994 Neurologic mental status Overall: oriented 11/02/2016 None Full Exam - General 1994 Neurologic motor Overall: normal bulk, tone 11/02/2016 None Full Exam - General 1994 Psychiatric orientation/consciousness Overall: oriented to person, place and time 11/02/2016 None Full Exam - General 1994 Psychiatric appearance Overall: well-groomed, good eye contact 11/02/2016 None Full Exam - General 1994 Psychiatric speech Overall: normal quality, no aphasia 11/02/2016 None Full Exam - General 1994 Constitutional general appearance Development: well developed 10/27/2016 None Full Exam - General 1994 Constitutional general appearance Development: appears stated age 0410/27/2016 None Full Exam - General 1994 Eyes conjunctiva/eyelids Cornea: corneal scar 10/27/2016 None Full Exam - General 1994 Eyes pupils and irises Pupil: round 10/27/2016 None Full Exam - General 1994 Eyes pupils and irises Pupil: reactive to light 10/27/2016 None Full Exam - General 1994 Ears/Nose/Throat external ear Overall: normal appearance 10/27/2016 None Full Exam - General 1994 Ears/Nose/Throat external ear Overall: no masses 10/27/2016 None Full Exam - General 1994 Ears/Nose/Throat external ear Overall: normal mastoids 10/27/2016 None Full Exam - General 1994 Ears/Nose/Throat otoscopic exam Overall: external auditory canals clear 10/27/2016 None Full Exam - General 1994 Ears/Nose/Throat otoscopic exam Overall: tympanic membranes clear 10/27/2016 None Full Exam - General 1994 Ears/Nose/Throat lips/teeth/gingiva Overall: benign lips 10/27/2016 None Full Exam - General 1994 Ears/Nose/Throat oral cavity/pharynx/larynx Overall: oral mucosa clear 10/27/2016 None Full Exam - General 1994 Neck thyroid Overall: normal size 10/27/2016 None Full Exam - General 1994 Neck thyroid Overall: normal consistency 10/27/2016 None Full Exam - General 1994 Neck inspection of neck Overall: normal size 10/27/2016 None Full Exam - General 1994 Neck inspection of neck Overall: normal appearance 10/27/2016 None Full Exam - General 1994 Respiratory auscultation Overall: breath sounds clear bilaterally 10/27/2016 None Full Exam - General 1994 Respiratory respiratory effort/rhythm Overall: no retractions 10/27/2016 None Full Exam - General 1994 Respiratory respiratory effort/rhythm Overall: normal rate 10/27/2016 None Full Exam - General 1994 Cardiovascular auscultation of heart Rhythm: regularly irregular rhythm 10/27/2016 None Full Exam - General 1994 Abdomen abdominal exam Overall: no tenderness 10/27/2016 None Full Exam - General 1994 Abdomen abdominal exam Overall: normal bowel sounds 10/27/2016 None Full Exam - General 1994 Lymphatic neck nodes Overall: anterior cervical chain benign 10/27/2016 None Full Exam - General 1994 Lymphatic neck nodes Overall: posterior cervical chain benign 10/27/2016 None Full Exam - General 1994 Musculoskeletal gait and station Overall: normal gait 10/27/2016 None Full Exam - General 1994 Musculoskeletal gait and station Overall: normal station 10/27/2016 None Full Exam - General 1994 Musculoskeletal head and neck Overall: head atraumatic 10/27/2016 None Full Exam - General 1994 Musculoskeletal head and neck Overall: cervical spine benign 10/27/2016 None Full Exam - General 1994 Integument inspection of skin Overall: few scattered moles, no gross abnormalities 10/27/2016 None Full Exam - General 1994 Neurologic mental status Overall: alert 10/27/2016 None Full Exam - General 1994 Neurologic mental status Overall: oriented 10/27/2016 None Full Exam - General 1994 Neurologic motor Overall: normal bulk, tone 10/27/2016 None Full Exam - General 1994 Psychiatric orientation/consciousness Overall: oriented to person, place and time 10/27/2016 None Full Exam - General 1994 Psychiatric appearance Overall: well-groomed, good eye contact 10/27/2016 None Full Exam - General 1994 Psychiatric speech Overall: normal quality, no aphasia 10/27/2016 None Full Exam - General 1994 Integument inspection of skin Location: right arm 10/27/2016 foerarm- sutures x 5 Full Exam - General Constitutional general appearance Overall: well nourished 08/31/2016 None Full Exam - General Constitutional general appearance Overall: well developed 08/31/2016 None Full Exam - General Constitutional general appearance Overall: in no acute distress 08/31/2016 None Full Exam - General Eyes pupils and irises Overall: pupils equal, round, reactive to light and accomodation 08/31/2016 None Full Exam - General Ears/Nose/Throat otoscopic exam Overall: external auditory canals clear 08/31/2016 None Full Exam - General Ears/Nose/Throat otoscopic exam Overall: tympanic membranes clear 08/31/2016 None Full Exam - General Ears/Nose/Throat oral cavity/pharynx/larynx Overall: oral mucosa clear 08/31/2016 None Full Exam - General Ears/Nose/Throat oral cavity/pharynx/larynx Overall: oropharyngeal mucosa clear 08/31/2016 None Full Exam - General Respiratory auscultation Overall: breath sounds clear bilaterally 08/31/2016 None Full Exam - General Respiratory respiratory effort/rhythm Overall: no retractions 08/31/2016 None Full Exam - General Respiratory respiratory effort/rhythm Overall: normal rate 08/31/2016 None Full Exam - General Cardiovascular auscultation of heart Rate: regular rate 08/31/2016 None Full Exam - General Cardiovascular auscultation of heart Rhythm: irregularly irregular rhythm 08/31/2016 None Full Exam - General Cardiovascular extremities Overall: no clubbing 08/31/2016 None Full Exam - General Cardiovascular extremities Edema present: pitting 08/31/2016 None Full Exam - General Abdomen abdominal exam Overall: normal bowel sounds 08/31/2016 None Full Exam - General Abdomen abdominal exam Left upper quadrant: non-tender to palpation 08/31/2016 None Full Exam - General Abdomen abdominal exam Left lower quadrant: non-tender to palpation 08/31/2016 None Full Exam - General Integument inspection of skin Dermatitis: dryness/flaking 08/31/2016 None Full Exam - General Neurologic gait Overall: no ataxia, no unsteadiness 08/31/2016 None Full Exam - General Neurologic cranial nerves Overall: cranial nerves 1-12 intact 08/31/2016 None Full Exam - General Psychiatric orientation/consciousness Overall: oriented to person, place and time 08/31/2016 None Full Exam - General Psychiatric mood and affect Overall: normal mood and affect 08/31/2016 None Full Exam - General Psychiatric appearance Overall: well-groomed, good eye contact 08/31/2016 None Full Exam - General Constitutional general appearance Overall: well nourished 07/27/2016 None Full Exam - General Constitutional general appearance Overall: well developed 07/27/2016 None Full Exam - General Constitutional general appearance Overall: in no acute distress 07/27/2016 None Full Exam - General Eyes pupils and irises Overall: pupils equal, round, reactive to light and accomodation 07/27/2016 None Full Exam - General Ears/Nose/Throat otoscopic exam Overall: external auditory canals clear 07/27/2016 None Full Exam - General Ears/Nose/Throat otoscopic exam Overall: tympanic membranes clear 07/27/2016 None Full Exam - General Ears/Nose/Throat oral cavity/pharynx/larynx Overall: oral mucosa clear 07/27/2016 None Full Exam - General Ears/Nose/Throat oral cavity/pharynx/larynx Overall: oropharyngeal mucosa clear 07/27/2016 None Full Exam - General Respiratory auscultation Overall: breath sounds clear bilaterally 07/27/2016 None Full Exam - General Respiratory respiratory effort/rhythm Overall: no retractions 07/27/2016 None Full Exam - General Respiratory respiratory effort/rhythm Overall: normal rate 07/27/2016 None Full Exam - General Cardiovascular auscultation of heart Rate: regular rate 07/27/2016 None Full Exam - General Cardiovascular auscultation of heart Rhythm: irregularly irregular rhythm 07/27/2016 None Full Exam - General Cardiovascular extremities Overall: no clubbing 07/27/2016 None Full Exam - General Cardiovascular extremities Edema present: pitting 07/27/2016 None Full Exam - General Abdomen abdominal exam Overall: normal bowel sounds 07/27/2016 None Full Exam - General Abdomen abdominal exam Left upper quadrant: non-tender to palpation 07/27/2016 None Full Exam - General Abdomen abdominal exam Left lower quadrant: non-tender to palpation 07/27/2016 None Full Exam - General Integument inspection of skin Dermatitis: dryness/flaking 07/27/2016 None Full Exam - General Neurologic gait Overall: no ataxia, no unsteadiness 07/27/2016 None Full Exam - General Neurologic cranial nerves Overall: cranial nerves 1-12 intact 07/27/2016 None Full Exam - General Psychiatric orientation/consciousness Overall: oriented to person, place and time 07/27/2016 None Full Exam - General Psychiatric mood and affect Overall: normal mood and affect 07/27/2016 None Full Exam - General Psychiatric appearance Overall: well-groomed, good eye contact 07/27/2016 None Full Exam - General Constitutional general appearance Overall: well nourished 06/23/2016 None Full Exam - General Constitutional general appearance Overall: well developed 06/23/2016 None Full Exam - General Constitutional general appearance Overall: in no acute distress 06/23/2016 None Full Exam - General Eyes pupils and irises Overall: pupils equal, round, reactive to light and accomodation 06/23/2016 None Full Exam - General Ears/Nose/Throat otoscopic exam Overall: external auditory canals clear 06/23/2016 None Full Exam - General Ears/Nose/Throat otoscopic exam Overall: tympanic membranes clear 06/23/2016 None Full Exam - General Ears/Nose/Throat oral cavity/pharynx/larynx Overall: oral mucosa clear 06/23/2016 None Full Exam - General Ears/Nose/Throat oral cavity/pharynx/larynx Overall: oropharyngeal mucosa clear 06/23/2016 None Full Exam - General Respiratory auscultation Overall: breath sounds clear bilaterally 06/23/2016 None Full Exam - General Respiratory respiratory effort/rhythm Overall: no retractions 06/23/2016 None Full Exam - General Respiratory respiratory effort/rhythm Overall: normal rate 06/23/2016 None Full Exam - General Cardiovascular auscultation of heart Rate: regular rate 06/23/2016 None Full Exam - General Cardiovascular auscultation of heart Rhythm: irregularly irregular rhythm 06/23/2016 None Full Exam - General Cardiovascular extremities Overall: no clubbing 06/23/2016 None Full Exam - General Abdomen abdominal exam Overall: normal bowel sounds 06/23/2016 None Full Exam - General Abdomen abdominal exam Left upper quadrant: non-tender to palpation 06/23/2016 None Full Exam - General Abdomen abdominal exam Left lower quadrant: non-tender to palpation 06/23/2016 None Full Exam - General Integument inspection of skin Dermatitis: dryness/flaking 06/23/2016 None Full Exam - General Neurologic gait Overall: no ataxia, no unsteadiness 06/23/2016 None Full Exam - General Neurologic cranial nerves Overall: cranial nerves 1-12 intact 06/23/2016 None Full Exam - General Psychiatric orientation/consciousness Overall: oriented to person, place and time 06/23/2016 None Full Exam - General Psychiatric mood and affect Overall: normal mood and affect 06/23/2016 None Full Exam - General Psychiatric appearance Overall: well-groomed, good eye contact 06/23/2016 None Full Exam - General Cardiovascular extremities Edema present: pitting 06/23/2016 None Full Exam - General Constitutional general appearance Overall: well nourished 06/09/2016 None Full Exam - General Constitutional general appearance Overall: well developed 06/09/2016 None Full Exam - General Constitutional general appearance Overall: in no acute distress 06/09/2016 None Full Exam - General Ears/Nose/Throat otoscopic exam Overall: external auditory canals clear 06/09/2016 None Full Exam - General Ears/Nose/Throat otoscopic exam Overall: tympanic membranes clear 06/09/2016 None Full Exam - General Ears/Nose/Throat oral cavity/pharynx/larynx Overall: oral mucosa clear 06/09/2016 None Full Exam - General Ears/Nose/Throat oral cavity/pharynx/larynx Overall: oropharyngeal mucosa clear 06/09/2016 None Full Exam - General Respiratory auscultation Overall: breath sounds clear bilaterally 06/09/2016 None Full Exam - General Respiratory respiratory effort/rhythm Overall: no retractions 06/09/2016 None Full Exam - General Respiratory respiratory effort/rhythm Overall: normal rate 06/09/2016 None Full Exam - General Cardiovascular auscultation of heart Rate: regular rate 06/09/2016 None Full Exam - General Cardiovascular auscultation of heart Rhythm: irregularly irregular rhythm 06/09/2016 None Full Exam - General Cardiovascular extremities Overall: no clubbing 06/09/2016 None Full Exam - General Abdomen abdominal exam Overall: normal bowel sounds 06/09/2016 None Full Exam - General Abdomen abdominal exam Left upper quadrant: non-tender to palpation 06/09/2016 None Full Exam - General Abdomen abdominal exam Left lower quadrant: non-tender to palpation 06/09/2016 None Full Exam - General Lymphatic neck nodes Overall: anterior cervical chain benign 06/09/2016 None Full Exam - General Lymphatic neck nodes Overall: posterior cervical chain benign 06/09/2016 None Full Exam - General Integument inspection of skin Dermatitis: dryness/flaking 06/09/2016 None Full Exam - General Neurologic gait Overall: no ataxia, no unsteadiness 06/09/2016 None Full Exam - General Neurologic cranial nerves Overall: cranial nerves 1-12 intact 06/09/2016 None Full Exam - General Psychiatric orientation/consciousness Overall: oriented to person, place and time 06/09/2016 None Full Exam - General Psychiatric mood and affect Overall: normal mood and affect 06/09/2016 None Full Exam - General Psychiatric appearance Overall: well-groomed, good eye contact 06/09/2016 None Full Exam - General Cardiovascular extremities Edema present: severity 2+ at ankles 06/09/2016 None Full Exam - General Constitutional general appearance Overall: well nourished 05/25/2016 None Full Exam - General Constitutional general appearance Overall: well developed 05/25/2016 None Full Exam - General Constitutional general appearance Overall: in no acute distress 05/25/2016 None Full Exam - General Eyes pupils and irises Overall: pupils equal, round, reactive to light and accomodation 05/25/2016 None Full Exam - General Ears/Nose/Throat otoscopic exam Overall: external auditory canals clear 05/25/2016 None Full Exam - General Ears/Nose/Throat otoscopic exam Overall: tympanic membranes clear 05/25/2016 None Full Exam - General Ears/Nose/Throat oral cavity/pharynx/larynx Overall: oral mucosa clear 05/25/2016 None Full Exam - General Ears/Nose/Throat oral cavity/pharynx/larynx Overall: oropharyngeal mucosa clear 05/25/2016 None Full Exam - General Respiratory auscultation Overall: breath sounds clear bilaterally 05/25/2016 None Full Exam - General Respiratory respiratory effort/rhythm Overall: no retractions 05/25/2016 None Full Exam - General Respiratory respiratory effort/rhythm Overall: normal rate 05/25/2016 None Full Exam - General Cardiovascular auscultation of heart Rate: regular rate 05/25/2016 None Full Exam - General Cardiovascular auscultation of heart Rhythm: irregularly irregular rhythm 05/25/2016 None Full Exam - General Cardiovascular extremities Overall: no clubbing 05/25/2016 None Full Exam - General Abdomen abdominal exam Overall: normal bowel sounds 05/25/2016 None Full Exam - General Abdomen abdominal exam Left upper quadrant: non-tender to palpation 05/25/2016 None Full Exam - General Abdomen abdominal exam Left lower quadrant: non-tender to palpation 05/25/2016 None Full Exam - General Integument inspection of skin Dermatitis: dryness/flaking 05/25/2016 None Full Exam - General Neurologic gait Overall: no ataxia, no unsteadiness 05/25/2016 None Full Exam - General Neurologic cranial nerves Overall: cranial nerves 1-12 intact 05/25/2016 None Full Exam - General Psychiatric orientation/consciousness Overall: oriented to person, place and time 05/25/2016 None Full Exam - General Psychiatric mood and affect Overall: normal mood and affect 05/25/2016 None Full Exam - General Psychiatric appearance Overall: well-groomed, good eye contact 05/25/2016 None Full Exam - General Constitutional general appearance Overall: well nourished 05/17/2016 None Full Exam - General Constitutional general appearance Overall: well developed 05/17/2016 None Full Exam - General Constitutional general appearance Overall: in no acute distress 05/17/2016 None Full Exam - General Eyes pupils and irises Overall: pupils equal, round, reactive to light and accomodation 05/17/2016 None Full Exam - General Respiratory auscultation Overall: breath sounds clear bilaterally 05/17/2016 None Full Exam - General Respiratory respiratory effort/rhythm Overall: no retractions 05/17/2016 None Full Exam - General Respiratory respiratory effort/rhythm Overall: normal rate 05/17/2016 None Full Exam - General Cardiovascular auscultation of heart Rate: regular rate 05/17/2016 None Full Exam - General Cardiovascular auscultation of heart Rhythm: irregularly irregular rhythm 05/17/2016 None Full Exam - General Cardiovascular extremities Overall: no clubbing 05/17/2016 None Full Exam - General Abdomen abdominal exam Overall: normal bowel sounds 05/17/2016 None Full Exam - General Abdomen abdominal exam Left upper quadrant: non-tender to palpation 05/17/2016 None Full Exam - General Abdomen abdominal exam Left lower quadrant: non-tender to palpation 05/17/2016 None Full Exam - General Neurologic gait Overall: no ataxia, no unsteadiness 05/17/2016 None Full Exam - General Neurologic cranial nerves Overall: cranial nerves 1-12 intact 05/17/2016 None Full Exam - General Psychiatric orientation/consciousness Overall: oriented to person, place and time 05/17/2016 None Full Exam - General Psychiatric mood and affect Overall: normal mood and affect 05/17/2016 None Full Exam - General Psychiatric appearance Overall: well-groomed, good eye contact 05/17/2016 None Full Exam - General Abdomen rectal exam Inspection: lesion 05/17/2016 sebaceous cysts Full Exam - General Constitutional general appearance Overall: well nourished 03/24/2016 None Full Exam - General Constitutional general appearance Overall: well developed 03/24/2016 None Full Exam - General Constitutional general appearance Overall: in no acute distress 03/24/2016 None Full Exam - General Ears/Nose/Throat otoscopic exam Overall: external auditory canals clear 03/24/2016 None Full Exam - General Ears/Nose/Throat otoscopic exam Overall: tympanic membranes clear 03/24/2016 None Full Exam - General Ears/Nose/Throat oral cavity/pharynx/larynx Overall: oral mucosa clear 03/24/2016 None Full Exam - General Ears/Nose/Throat oral cavity/pharynx/larynx Overall: oropharyngeal mucosa clear 03/24/2016 None Full Exam - General Respiratory auscultation Overall: breath sounds clear bilaterally 03/24/2016 None Full Exam - General Respiratory respiratory effort/rhythm Overall: no retractions 03/24/2016 None Full Exam - General Respiratory respiratory effort/rhythm Overall: normal rate 03/24/2016 None Full Exam - General Cardiovascular auscultation of heart Rate: regular rate 03/24/2016 None Full Exam - General Cardiovascular auscultation of heart Rhythm: irregularly irregular rhythm 03/24/2016 None Full Exam - General Cardiovascular extremities Overall: no clubbing 03/24/2016 None Full Exam - General Abdomen abdominal exam Overall: normal bowel sounds 03/24/2016 None Full Exam - General Abdomen abdominal exam Left upper quadrant: non-tender to palpation 03/24/2016 None Full Exam - General Abdomen abdominal exam Left lower quadrant: non-tender to palpation 03/24/2016 None Full Exam - General Lymphatic neck nodes Overall: anterior cervical chain benign 03/24/2016 None Full Exam - General Lymphatic neck nodes Overall: posterior cervical chain benign 03/24/2016 None Full Exam - General Integument inspection of skin Dermatitis: dryness/flaking 03/24/2016 None Full Exam - General Neurologic gait Overall: no ataxia, no unsteadiness 03/24/2016 None Full Exam - General Neurologic cranial nerves Overall: cranial nerves 1-12 intact 03/24/2016 None Full Exam - General Psychiatric orientation/consciousness Overall: oriented to person, place and time 03/24/2016 None Full Exam - General Psychiatric mood and affect Overall: normal mood and affect 03/24/2016 None Full Exam - General Psychiatric appearance Overall: well-groomed, good eye contact 03/24/2016 None Full Exam - General Eyes pupils and irises Overall: pupils equal, round, reactive to light and accomodation 03/24/2016 None Full Exam - General 1995 Constitutional general appearance Overall: well developed 02/02/2016 None Full Exam - General 1994 Constitutional general appearance Overall: in no acute distress 02/02/2016 None Full Exam - General 1994 Constitutional general appearance Overall: well nourished 02/02/2016 None Full Exam - General 1994 Respiratory auscultation Overall: breath sounds clear bilaterally 02/02/2016 None Full Exam - General 1994 Respiratory respiratory effort/rhythm Overall: no retractions 02/02/2016 None Full Exam - General 1994 Respiratory respiratory effort/rhythm Overall: normal rate 02/02/2016 None Full Exam - General 1994 Cardiovascular auscultation of heart Rhythm: irregularly irregular rhythm 02/02/2016 None Full Exam - General 1994 Abdomen abdominal exam Overall: no tenderness 02/02/2016 None Full Exam - General 1994 Abdomen abdominal exam Overall: normal bowel sounds 02/02/2016 None Full Exam - General 1994 Psychiatric orientation/consciousness Overall: oriented to person, place and time 02/02/2016 None Full Exam - General 1994 Psychiatric mood and affect Overall: normal mood and affect 02/02/2016 None Full Exam - General 1994 Psychiatric mood and affect Mood: happy 02/02/2016 None Full Exam - General 1994 Eyes pupils and irises Overall: pupils equal, round, reactive to light and accomodation 02/02/2016 None Full Exam - General 1994 Abdomen rectal exam Inspection: lesion 02/02/2016 small pale cyst Full Exam - General 1994 Constitutional general appearance Overall: well nourished 2016 None Full Exam - General 1994 Constitutional general appearance Overall: well developed 2016 None Full Exam - General 1994 Constitutional general appearance Overall: in no acute distress 2016 None Full Exam - General 1994 Respiratory respiratory effort/rhythm Overall: normal rate 2016 None Full Exam - General 1994 Respiratory respiratory effort/rhythm Overall: no retractions 2016 None Full Exam - General 1994 Respiratory auscultation Overall: breath sounds clear bilaterally 2016 None Full Exam - General 1994 Cardiovascular auscultation of heart Rhythm: irregularly irregular rhythm 2016 None Full Exam - General 1994 Abdomen abdominal exam Overall: no tenderness 2016 None Full Exam - General 1994 Abdomen abdominal exam Overall: normal bowel sounds 2016 None Full Exam - General 1994 Abdomen rectal exam Inspection: fissure 2016 None Full Exam - General 1994 Psychiatric orientation/consciousness Overall: oriented to person, place and time 2016 None Full Exam - General 1994 Psychiatric mood and affect Mood: happy 2016 None Full Exam - General 1994 Psychiatric mood and affect Overall: normal mood and affect 2016 None Full Exam - General Constitutional general appearance Overall: well nourished 12/21/2015 None Full Exam - General Constitutional general appearance Overall: well developed 12/21/2015 None Full Exam - General Constitutional general appearance Overall: in no acute distress 12/21/2015 None Full Exam - General Ears/Nose/Throat otoscopic exam Overall: external auditory canals clear 12/21/2015 None Full Exam - General Ears/Nose/Throat otoscopic exam Overall: tympanic membranes clear 12/21/2015 None Full Exam - General Ears/Nose/Throat oral cavity/pharynx/larynx Overall: oral mucosa clear 12/21/2015 None Full Exam - General Ears/Nose/Throat oral cavity/pharynx/larynx Overall: oropharyngeal mucosa clear 12/21/2015 None Full Exam - General Respiratory auscultation Overall: breath sounds clear bilaterally 12/21/2015 None Full Exam - General Respiratory respiratory effort/rhythm Overall: no retractions 12/21/2015 None Full Exam - General Respiratory respiratory effort/rhythm Overall: normal rate 12/21/2015 None Full Exam - General Cardiovascular auscultation of heart Rate: regular rate 12/21/2015 None Full Exam - General Cardiovascular auscultation of heart Rhythm: irregularly irregular rhythm 12/21/2015 None Full Exam - General Cardiovascular extremities Overall: no clubbing 12/21/2015 None Full Exam - General Abdomen abdominal exam Overall: normal bowel sounds 12/21/2015 None Full Exam - General Abdomen abdominal exam Left upper quadrant: non-tender to palpation 12/21/2015 None Full Exam - General Abdomen abdominal exam Left lower quadrant: non-tender to palpation 12/21/2015 None Full Exam - General Lymphatic neck nodes Overall: anterior cervical chain benign 12/21/2015 None Full Exam - General Lymphatic neck nodes Overall: posterior cervical chain benign 12/21/2015 None Full Exam - General Integument inspection of skin Dermatitis: dryness/flaking 12/21/2015 None Full Exam - General Neurologic gait Overall: no ataxia, no unsteadiness 12/21/2015 None Full Exam - General Neurologic cranial nerves Overall: cranial nerves 1-12 intact 12/21/2015 None Full Exam - General Psychiatric orientation/consciousness Overall: oriented to person, place and time 12/21/2015 None Full Exam - General Psychiatric mood and affect Overall: normal mood and affect 12/21/2015 None Full Exam - General Psychiatric appearance Overall: well-groomed, good eye contact 12/21/2015 None Full Exam - General Constitutional general appearance Overall: well nourished 11/03/2015 None Full Exam - General Constitutional general appearance Overall: well developed 11/03/2015 None Full Exam - General Constitutional general appearance Overall: in no acute distress 11/03/2015 None Full Exam - General Ears/Nose/Throat otoscopic exam Overall: external auditory canals clear 11/03/2015 None Full Exam - General Ears/Nose/Throat otoscopic exam Overall: tympanic membranes clear 11/03/2015 None Full Exam - General Ears/Nose/Throat oral cavity/pharynx/larynx Overall: oral mucosa clear 11/03/2015 None Full Exam - General Ears/Nose/Throat oral cavity/pharynx/larynx Overall: oropharyngeal mucosa clear 11/03/2015 None Full Exam - General Respiratory auscultation Overall: breath sounds clear bilaterally 11/03/2015 None Full Exam - General Respiratory respiratory effort/rhythm Overall: no retractions 11/03/2015 None Full Exam - General Respiratory respiratory effort/rhythm Overall: normal rate 11/03/2015 None Full Exam - General Cardiovascular auscultation of heart Rate: regular rate 11/03/2015 None Full Exam - General Cardiovascular auscultation of heart Rhythm: irregularly irregular rhythm 11/03/2015 None Full Exam - General Cardiovascular extremities Overall: no clubbing 11/03/2015 None Full Exam - General Abdomen abdominal exam Overall: normal bowel sounds 11/03/2015 None Full Exam - General Abdomen abdominal exam Left upper quadrant: non-tender to palpation 11/03/2015 None Full Exam - General Abdomen abdominal exam Left lower quadrant: non-tender to palpation 11/03/2015 None Full Exam - General Lymphatic neck nodes Overall: anterior cervical chain benign 11/03/2015 None Full Exam - General Lymphatic neck nodes Overall: posterior cervical chain benign 11/03/2015 None Full Exam - General Integument inspection of skin Dermatitis: dryness/flaking 11/03/2015 None Full Exam - General Neurologic gait Overall: no ataxia, no unsteadiness 11/03/2015 None Full Exam - General Neurologic cranial nerves Overall: cranial nerves 1-12 intact 11/03/2015 None Full Exam - General Psychiatric orientation/consciousness Overall: oriented to person, place and time 11/03/2015 None Full Exam - General Psychiatric mood and affect Overall: normal mood and affect 11/03/2015 None Full Exam - General Psychiatric appearance Overall: well-groomed, good eye contact 11/03/2015 None Full Exam - General Constitutional general appearance Overall: well nourished 10/19/2015 None Full Exam - General Constitutional general appearance Overall: well developed 10/19/2015 None Full Exam - General Constitutional general appearance Overall: in no acute distress 10/19/2015 None Full Exam - General Ears/Nose/Throat otoscopic exam Left external auditory canal: minimal cerumen 10/19/2015 None Full Exam - General Ears/Nose/Throat otoscopic exam Right external auditory canal: partial cerumen occlusion 10/19/2015 None Full Exam - General Ears/Nose/Throat otoscopic exam Right tympanic membrane: cerumen blocking tympanic membrane 10/19/2015 None Full Exam - General Ears/Nose/Throat oral cavity/pharynx/larynx Overall: oral mucosa clear 10/19/2015 None Full Exam - General Respiratory auscultation Overall: breath sounds clear bilaterally 10/19/2015 None Full Exam - General Respiratory respiratory effort/rhythm Overall: no retractions 10/19/2015 None Full Exam - General Respiratory respiratory effort/rhythm Overall: normal rate 10/19/2015 None Full Exam - General Cardiovascular auscultation of heart Rate: regular rate 10/19/2015 None Full Exam - General Cardiovascular auscultation of heart Rhythm: irregularly irregular rhythm 10/19/2015 None Full Exam - General Cardiovascular extremities Overall: no clubbing 10/19/2015 None Full Exam - General Neurologic gait Overall: no ataxia, no unsteadiness 10/19/2015 None Full Exam - General Neurologic cranial nerves Overall: cranial nerves 1-12 intact 10/19/2015 None Full Exam - General Psychiatric orientation/consciousness Overall: oriented to person, place and time 10/19/2015 None Full Exam - General Psychiatric mood and affect Overall: normal mood and affect 10/19/2015 None Full Exam - General Psychiatric appearance Overall: well-groomed, good eye contact 10/19/2015 None Full Exam - General Ears/Nose/Throat otoscopic exam Overall: tympanic membranes clear 10/19/2015 after cerumen removal from the right ear Full Exam - General Ears/Nose/Throat lips/teeth/gingiva Overall: benign lips 10/19/2015 None Full Exam - General Constitutional general appearance Overall: well nourished 10/13/2015 None Full Exam - General Constitutional general appearance Overall: well developed 10/13/2015 None Full Exam - General Constitutional general appearance Overall: in no acute distress 10/13/2015 None Full Exam - General Ears/Nose/Throat oral cavity/pharynx/larynx Overall: oral mucosa clear 10/13/2015 None Full Exam - General Ears/Nose/Throat oral cavity/pharynx/larynx Overall: oropharyngeal mucosa clear 10/13/2015 None Full Exam - General Respiratory auscultation Overall: breath sounds clear bilaterally 10/13/2015 None Full Exam - General Respiratory respiratory effort/rhythm Overall: no retractions 10/13/2015 None Full Exam - General Respiratory respiratory effort/rhythm Overall: normal rate 10/13/2015 None Full Exam - General Cardiovascular auscultation of heart Rate: regular rate 10/13/2015 None Full Exam - General Cardiovascular auscultation of heart Rhythm: irregularly irregular rhythm 10/13/2015 None Full Exam - General Cardiovascular extremities Overall: no clubbing 10/13/2015 None Full Exam - General Lymphatic neck nodes Overall: anterior cervical chain benign 10/13/2015 None Full Exam - General Lymphatic neck nodes Overall: posterior cervical chain benign 10/13/2015 None Full Exam - General Neurologic gait Overall: no ataxia, no unsteadiness 10/13/2015 None Full Exam - General Neurologic cranial nerves Overall: cranial nerves 1-12 intact 10/13/2015 None Full Exam - General Psychiatric orientation/consciousness Overall: oriented to person, place and time 10/13/2015 None Full Exam - General Psychiatric mood and affect Overall: normal mood and affect 10/13/2015 None Full Exam - General Psychiatric appearance Overall: well-groomed, good eye contact 10/13/2015 None Full Exam - General Ears/Nose/Throat otoscopic exam Right external auditory canal: partial cerumen occlusion 10/13/2015 None Full Exam - General Ears/Nose/Throat otoscopic exam Left external auditory canal: minimal cerumen 10/13/2015 None Full Exam - General Ears/Nose/Throat otoscopic exam Left tympanic membrane: air-fluid level 10/13/2015 None Full Exam - General Ears/Nose/Throat otoscopic exam Right tympanic membrane: cerumen blocking tympanic membrane 10/13/2015 None Full Exam - General Constitutional general appearance Overall: well nourished 09/29/2015 None Full Exam - General Constitutional general appearance Overall: well developed 09/29/2015 None Full Exam - General Constitutional general appearance Overall: in no acute distress 09/29/2015 None Full Exam - General Ears/Nose/Throat otoscopic exam Overall: external auditory canals clear 09/29/2015 None Full Exam - General Ears/Nose/Throat otoscopic exam Overall: tympanic membranes clear 09/29/2015 None Full Exam - General Ears/Nose/Throat oral cavity/pharynx/larynx Overall: oral mucosa clear 09/29/2015 None Full Exam - General Ears/Nose/Throat oral cavity/pharynx/larynx Overall: oropharyngeal mucosa clear 09/29/2015 None Full Exam - General Respiratory auscultation Overall: breath sounds clear bilaterally 09/29/2015 None Full Exam - General Respiratory respiratory effort/rhythm Overall: no retractions 09/29/2015 None Full Exam - General Respiratory respiratory effort/rhythm Overall: normal rate 09/29/2015 None Full Exam - General Cardiovascular auscultation of heart Rate: regular rate 09/29/2015 None Full Exam - General Cardiovascular auscultation of heart Rhythm: irregularly irregular rhythm 09/29/2015 --Improved Full Exam - General Cardiovascular extremities Overall: no clubbing 09/29/2015 None Full Exam - General Abdomen abdominal exam Overall: normal bowel sounds 09/29/2015 None Full Exam - General Abdomen abdominal exam Left upper quadrant: non-tender to palpation 09/29/2015 None Full Exam - General Abdomen abdominal exam Left lower quadrant: non-tender to palpation 09/29/2015 None Full Exam - General Lymphatic neck nodes Overall: anterior cervical chain benign 09/29/2015 None Full Exam - General Lymphatic neck nodes Overall: posterior cervical chain benign 09/29/2015 None Full Exam - General Integument inspection of skin Dermatitis: dryness/flaking 09/29/2015 --Improved Full Exam - General Neurologic gait Overall: no ataxia, no unsteadiness 09/29/2015 None Full Exam - General Neurologic cranial nerves Overall: cranial nerves 1-12 intact 09/29/2015 None Full Exam - General Psychiatric orientation/consciousness Overall: oriented to person, place and time 09/29/2015 None Full Exam - General Psychiatric mood and affect Overall: normal mood and affect 09/29/2015 None Full Exam - General Psychiatric appearance Overall: well-groomed, good eye contact 09/29/2015 None Full Exam - General Constitutional general appearance Overall: well nourished 09/15/2015 None Full Exam - General Constitutional general appearance Overall: well developed 09/15/2015 None Full Exam - General Constitutional general appearance Overall: in no acute distress 09/15/2015 None Full Exam - General Ears/Nose/Throat otoscopic exam Overall: external auditory canals clear 09/15/2015 None Full Exam - General Ears/Nose/Throat otoscopic exam Overall: tympanic membranes clear 09/15/2015 None Full Exam - General Ears/Nose/Throat oral cavity/pharynx/larynx Overall: oral mucosa clear 09/15/2015 None Full Exam - General Ears/Nose/Throat oral cavity/pharynx/larynx Overall: oropharyngeal mucosa clear 09/15/2015 None Full Exam - General Respiratory auscultation Overall: breath sounds clear bilaterally 09/15/2015 None Full Exam - General Respiratory respiratory effort/rhythm Overall: no retractions 09/15/2015 None Full Exam - General Respiratory respiratory effort/rhythm Overall: normal rate 09/15/2015 None Full Exam - General Cardiovascular auscultation of heart Rate: regular rate 09/15/2015 None Full Exam - General Cardiovascular auscultation of heart Rhythm: irregularly irregular rhythm 09/15/2015 None Full Exam - General Cardiovascular extremities Overall: no clubbing 09/15/2015 None Full Exam - General Abdomen abdominal exam Overall: normal bowel sounds 09/15/2015 None Full Exam - General Abdomen abdominal exam Left upper quadrant: non-tender to palpation 09/15/2015 None Full Exam - General Abdomen abdominal exam Left lower quadrant: non-tender to palpation 09/15/2015 None Full Exam - General Abdomen abdominal exam Right upper quadrant: dull pain 09/15/2015 None Full Exam - General Abdomen abdominal exam Right lower quadrant: dull pain 09/15/2015 None Full Exam - General Lymphatic neck nodes Overall: anterior cervical chain benign 09/15/2015 None Full Exam - General Lymphatic neck nodes Overall: posterior cervical chain benign 09/15/2015 None Full Exam - General Integument inspection of skin Dermatitis: dryness/flaking 09/15/2015 None Full Exam - General Neurologic gait Overall: no ataxia, no unsteadiness 09/15/2015 None Full Exam - General Neurologic cranial nerves Overall: cranial nerves 1-12 intact 09/15/2015 None Full Exam - General Psychiatric orientation/consciousness Overall: oriented to person, place and time 09/15/2015 None Full Exam - General Psychiatric mood and affect Overall: normal mood and affect 09/15/2015 None Full Exam - General Psychiatric appearance Overall: well-groomed, good eye contact 09/15/2015 None Full Exam - General Abdomen rectal exam Inspection: hemorrhoid 09/15/2015 None Full Exam - General 1994 Constitutional general appearance Nourishment: thin 09/01/2015 None Full Exam - General 1994 Constitutional general appearance Development: appears stated age 0209/01/2015 None Full Exam - General 1994 Constitutional general appearance Development: well developed 09/01/2015 None Full Exam - General 1994 Eyes pupils and irises Pupil: reactive to light 09/01/2015 None Full Exam - General 1994 Eyes pupils and irises Pupil: nonreactive to light 09/01/2015 None Full Exam - General 1994 Eyes pupils and irises Pupil: reactive to accommodation 09/01/2015 None Full Exam - General 1994 Eyes pupils and irises Pupil: nonreactive to accommodation 09/01/2015 None Full Exam - General 1994 Eyes conjunctiva/eyelids Conjunctiva: clear 09/01/2015 None Full Exam - General 1994 Eyes conjunctiva/eyelids Conjunctiva: discharge 09/01/2015 None Full Exam - General 1994 Ears/Nose/Throat oral cavity/pharynx/larynx Overall: oropharyngeal mucosa clear 09/01/2015 None Full Exam - General 1994 Ears/Nose/Throat oral cavity/pharynx/larynx Overall: no masses 09/01/2015 None Full Exam - General 1994 Ears/Nose/Throat oral cavity/pharynx/larynx Overall: oral mucosa clear 09/01/2015 None Full Exam - General 1994 Ears/Nose/Throat lips/teeth/gingiva Overall: benign gingiva 09/01/2015 None Full Exam - General 1994 Ears/Nose/Throat lips/teeth/gingiva Overall: no masses 09/01/2015 None Full Exam - General 1994 Ears/Nose/Throat lips/teeth/gingiva Overall: normal dentition 09/01/2015 None Full Exam - General 1994 Ears/Nose/Throat lips/teeth/gingiva Overall: benign lips 09/01/2015 None Full Exam - General 1994 Ears/Nose/Throat otoscopic exam Overall: tympanic membranes clear 09/01/2015 None Full Exam - General 1994 Ears/Nose/Throat otoscopic exam Overall: external auditory canals clear 09/01/2015 None Full Exam - General 1994 Psychiatric orientation/consciousness Overall: oriented to person, place and time 09/01/2015 None Full Exam - General 1994 Respiratory auscultation Overall: breath sounds clear bilaterally 09/01/2015 None Full Exam - General 1994 Respiratory respiratory effort/rhythm Overall: normal rate 09/01/2015 None Full Exam - General 1994 Respiratory respiratory effort/rhythm Overall: no retractions 09/01/2015 None Full Exam - General 1994 Cardiovascular auscultation of heart Rate: bradycardia 09/01/2015 None Full Exam - General 1994 Cardiovascular auscultation of heart Rhythm: irregularly irregular rhythm 09/01/2015 None Full Exam - General 1994 Abdomen abdominal exam Overall: no tenderness 09/01/2015 None Full Exam - General 1994 Abdomen abdominal exam Overall: normal bowel sounds 09/01/2015 None Full Exam - General 1994 Lymphatic neck nodes Overall: anterior cervical chain benign 09/01/2015 None Full Exam - General 1994 Lymphatic neck nodes Overall: posterior cervical chain benign 09/01/2015 None Full Exam - General 1994 Musculoskeletal head and neck Overall: head atraumatic 09/01/2015 None Full Exam - General 1994 Musculoskeletal gait and station Overall: normal gait 09/01/2015 None Full Exam - General 1994 Musculoskeletal gait and station Overall: normal station 09/01/2015 None Full Exam - General 1994 Neurologic deep tendon reflexes Overall: deep tendon reflexes intact 09/01/2015 None Full Exam - General Constitutional general appearance Overall: well nourished 05/26/2015 None Full Exam - General Constitutional general appearance Overall: well developed 05/26/2015 None Full Exam - General Constitutional general appearance Overall: in no acute distress 05/26/2015 None Full Exam - General Ears/Nose/Throat otoscopic exam Overall: external auditory canals clear 05/26/2015 None Full Exam - General Ears/Nose/Throat otoscopic exam Overall: tympanic membranes clear 05/26/2015 None Full Exam - General Ears/Nose/Throat oral cavity/pharynx/larynx Overall: oral mucosa clear 05/26/2015 None Full Exam - General Ears/Nose/Throat oral cavity/pharynx/larynx Overall: oropharyngeal mucosa clear 05/26/2015 None Full Exam - General Respiratory auscultation Overall: breath sounds clear bilaterally 05/26/2015 None Full Exam - General Respiratory respiratory effort/rhythm Overall: no retractions 05/26/2015 None Full Exam - General Respiratory respiratory effort/rhythm Overall: normal rate 05/26/2015 None Full Exam - General Cardiovascular auscultation of heart Rate: regular rate 05/26/2015 None Full Exam - General Cardiovascular auscultation of heart Rhythm: irregularly irregular rhythm 05/26/2015 None Full Exam - General Cardiovascular extremities Overall: no clubbing 05/26/2015 None Full Exam - General Abdomen abdominal exam Overall: normal bowel sounds 05/26/2015 None Full Exam - General Neurologic gait Overall: no ataxia, no unsteadiness 05/26/2015 None Full Exam - General Psychiatric orientation/consciousness Overall: oriented to person, place and time 05/26/2015 None Full Exam - General Psychiatric mood and affect Overall: normal mood and affect 05/26/2015 None Full Exam - General Psychiatric appearance Overall: well-groomed, good eye contact 05/26/2015 None Full Exam - General Genitourinary urethra Inspection: tender 05/26/2015 erythema and irritation noted. Full Exam - General Genitourinary labia and vagina Overall: normal hair distribution 05/26/2015 None Full Exam - General Genitourinary labia and vagina Overall: no lesions 05/26/2015 None Full Exam - General Genitourinary labia and vagina Labia: no lesions present 05/26/2015 Dry tissue Full Exam - General Genitourinary labia and vagina Vaginal discharge: absent 05/26/2015 None Full Exam - General Genitourinary labia and vagina Vagina: no lesions present 05/26/2015 Dry tissue Full Exam - General Neurologic cranial nerves Overall: cranial nerves 2-12 grossly intact 05/26/2015 None Full Exam - General Constitutional general appearance Overall: well nourished 05/21/2015 None Full Exam - General Constitutional general appearance Overall: well developed 05/21/2015 None Full Exam - General Constitutional general appearance Overall: in no acute distress 05/21/2015 None Full Exam - General Ears/Nose/Throat otoscopic exam Overall: external auditory canals clear 05/21/2015 None Full Exam - General Ears/Nose/Throat otoscopic exam Overall: tympanic membranes clear 05/21/2015 None Full Exam - General Ears/Nose/Throat oral cavity/pharynx/larynx Overall: oral mucosa clear 05/21/2015 None Full Exam - General Ears/Nose/Throat oral cavity/pharynx/larynx Overall: oropharyngeal mucosa clear 05/21/2015 None Full Exam - General Respiratory auscultation Overall: breath sounds clear bilaterally 05/21/2015 None Full Exam - General Respiratory respiratory effort/rhythm Overall: no retractions 05/21/2015 None Full Exam - General Respiratory respiratory effort/rhythm Overall: normal rate 05/21/2015 None Full Exam - General Cardiovascular auscultation of heart Rate: regular rate 05/21/2015 None Full Exam - General Cardiovascular auscultation of heart Rhythm: irregularly irregular rhythm 05/21/2015 None Full Exam - General Cardiovascular extremities Overall: no clubbing 05/21/2015 None Full Exam - General Abdomen abdominal exam Overall: normal bowel sounds 05/21/2015 None Full Exam - General Lymphatic neck nodes Overall: anterior cervical chain benign 05/21/2015 None Full Exam - General Lymphatic neck nodes Overall: posterior cervical chain benign 05/21/2015 None Full Exam - General Integument inspection of skin Dermatitis: dryness/flaking 05/21/2015 None Full Exam - General Neurologic gait Overall: no ataxia, no unsteadiness 05/21/2015 None Full Exam - General Neurologic cranial nerves Overall: cranial nerves 1-12 intact 05/21/2015 None Full Exam - General Psychiatric orientation/consciousness Overall: oriented to person, place and time 05/21/2015 None Full Exam - General Psychiatric mood and affect Overall: normal mood and affect 05/21/2015 None Full Exam - General Psychiatric appearance Overall: well-groomed, good eye contact 05/21/2015 None Full Exam - General Integument inspection of skin Rash/Lesions: macule 05/21/2015 Flat, rough, brown patch approximately 1 cm x 2cm on the right lateral barton, just below the knee Full Exam - General Musculoskeletal right lower extremity Inspection - right foot: redness 05/21/2015 Right distal great toe Full Exam - General Constitutional general appearance Overall: well nourished 05/07/2015 None Full Exam - General Constitutional general appearance Overall: well developed 05/07/2015 None Full Exam - General Constitutional general appearance Overall: in no acute distress 05/07/2015 None Full Exam - General Ears/Nose/Throat otoscopic exam Overall: external auditory canals clear 05/07/2015 None Full Exam - General Ears/Nose/Throat otoscopic exam Overall: tympanic membranes clear 05/07/2015 None Full Exam - General Ears/Nose/Throat oral cavity/pharynx/larynx Overall: oral mucosa clear 05/07/2015 None Full Exam - General Ears/Nose/Throat oral cavity/pharynx/larynx Overall: oropharyngeal mucosa clear 05/07/2015 None Full Exam - General Respiratory auscultation Overall: breath sounds clear bilaterally 05/07/2015 None Full Exam - General Respiratory respiratory effort/rhythm Overall: no retractions 05/07/2015 None Full Exam - General Respiratory respiratory effort/rhythm Overall: normal rate 05/07/2015 None Full Exam - General Cardiovascular auscultation of heart Rate: regular rate 05/07/2015 None Full Exam - General Cardiovascular auscultation of heart Rhythm: irregularly irregular rhythm 05/07/2015 None Full Exam - General Cardiovascular extremities Overall: no clubbing 05/07/2015 None Full Exam - General Abdomen abdominal exam Overall: normal bowel sounds 05/07/2015 None Full Exam - General Abdomen abdominal exam Left upper quadrant: non-tender to palpation 05/07/2015 None Full Exam - General Abdomen abdominal exam Left lower quadrant: non-tender to palpation 05/07/2015 None Full Exam - General Abdomen abdominal exam Right upper quadrant: dull pain 05/07/2015 None Full Exam - General Abdomen abdominal exam Right lower quadrant: dull pain 05/07/2015 None Full Exam - General Lymphatic neck nodes Overall: anterior cervical chain benign 05/07/2015 None Full Exam - General Lymphatic neck nodes Overall: posterior cervical chain benign 05/07/2015 None Full Exam - General Integument inspection of skin Dermatitis: dryness/flaking 05/07/2015 None Full Exam - General Neurologic gait Overall: no ataxia, no unsteadiness 05/07/2015 None Full Exam - General Neurologic cranial nerves Overall: cranial nerves 1-12 intact 05/07/2015 None Full Exam - General Psychiatric orientation/consciousness Overall: oriented to person, place and time 05/07/2015 None Full Exam - General Psychiatric mood and affect Overall: normal mood and affect 05/07/2015 None Full Exam - General Psychiatric appearance Overall: well-groomed, good eye contact 05/07/2015 None Full Exam - General Constitutional general appearance Overall: well nourished 03/23/2015 None Full Exam - General Constitutional general appearance Overall: well developed 03/23/2015 None Full Exam - General Constitutional general appearance Overall: in no acute distress 03/23/2015 None Full Exam - General Ears/Nose/Throat otoscopic exam Overall: external auditory canals clear 03/23/2015 None Full Exam - General Ears/Nose/Throat otoscopic exam Overall: tympanic membranes clear 03/23/2015 None Full Exam - General Ears/Nose/Throat oral cavity/pharynx/larynx Overall: oral mucosa clear 03/23/2015 None Full Exam - General Ears/Nose/Throat oral cavity/pharynx/larynx Overall: oropharyngeal mucosa clear 03/23/2015 None Full Exam - General Respiratory auscultation Overall: breath sounds clear bilaterally 03/23/2015 None Full Exam - General Respiratory respiratory effort/rhythm Overall: no retractions 03/23/2015 None Full Exam - General Respiratory respiratory effort/rhythm Overall: normal rate 03/23/2015 None Full Exam - General Cardiovascular auscultation of heart Rate: regular rate 03/23/2015 None Full Exam - General Cardiovascular auscultation of heart Rhythm: irregularly irregular rhythm 03/23/2015 None Full Exam - General Cardiovascular extremities Overall: no clubbing 03/23/2015 None Full Exam - General Abdomen abdominal exam Overall: no tenderness 03/23/2015 None Full Exam - General Abdomen abdominal exam Overall: normal bowel sounds 03/23/2015 None Full Exam - General Lymphatic neck nodes Overall: anterior cervical chain benign 03/23/2015 None Full Exam - General Lymphatic neck nodes Overall: posterior cervical chain benign 03/23/2015 None Full Exam - General Integument inspection of skin Dermatitis: dryness/flaking 03/23/2015 None Full Exam - General Neurologic gait Overall: no ataxia, no unsteadiness 03/23/2015 None Full Exam - General Neurologic cranial nerves Overall: cranial nerves 1-12 intact 03/23/2015 None Full Exam - General Psychiatric orientation/consciousness Overall: oriented to person, place and time 03/23/2015 None Full Exam - General Psychiatric mood and affect Overall: normal mood and affect 03/23/2015 None Full Exam - General Psychiatric appearance Overall: well-groomed, good eye contact 03/23/2015 None Full Exam - General Constitutional general appearance Overall: well nourished 03/09/2015 None Full Exam - General Constitutional general appearance Overall: well developed 03/09/2015 None Full Exam - General Constitutional general appearance Overall: in no acute distress 03/09/2015 None Full Exam - General Ears/Nose/Throat otoscopic exam Overall: external auditory canals clear 03/09/2015 None Full Exam - General Ears/Nose/Throat otoscopic exam Overall: tympanic membranes clear 03/09/2015 None Full Exam - General Ears/Nose/Throat oral cavity/pharynx/larynx Overall: oral mucosa clear 03/09/2015 None Full Exam - General Ears/Nose/Throat oral cavity/pharynx/larynx Overall: oropharyngeal mucosa clear 03/09/2015 None Full Exam - General Respiratory auscultation Overall: breath sounds clear bilaterally 03/09/2015 None Full Exam - General Respiratory respiratory effort/rhythm Overall: no retractions 03/09/2015 None Full Exam - General Respiratory respiratory effort/rhythm Overall: normal rate 03/09/2015 None Full Exam - General Cardiovascular auscultation of heart Rate: regular rate 03/09/2015 None Full Exam - General Cardiovascular auscultation of heart Rhythm: irregularly irregular rhythm 03/09/2015 None Full Exam - General Cardiovascular extremities Overall: no clubbing 03/09/2015 None Full Exam - General Abdomen abdominal exam Overall: normal bowel sounds 03/09/2015 None Full Exam - General Lymphatic neck nodes Overall: anterior cervical chain benign 03/09/2015 None Full Exam - General Lymphatic neck nodes Overall: posterior cervical chain benign 03/09/2015 None Full Exam - General Integument inspection of skin Dermatitis: dryness/flaking 03/09/2015 None Full Exam - General Neurologic gait Overall: no ataxia, no unsteadiness 03/09/2015 None Full Exam - General Neurologic cranial nerves Overall: cranial nerves 1-12 intact 03/09/2015 None Full Exam - General Psychiatric orientation/consciousness Overall: oriented to person, place and time 03/09/2015 None Full Exam - General Psychiatric mood and affect Overall: normal mood and affect 03/09/2015 None Full Exam - General Psychiatric appearance Overall: well-groomed, good eye contact 03/09/2015 None Full Exam - General Abdomen abdominal exam Left upper quadrant: non-tender to palpation 03/09/2015 None Full Exam - General Abdomen abdominal exam Left lower quadrant: non-tender to palpation 03/09/2015 None Full Exam - General Abdomen abdominal exam Right upper quadrant: dull pain 03/09/2015 None Full Exam - General Abdomen abdominal exam Right lower quadrant: dull pain 03/09/2015 None Full Exam - General Constitutional general appearance Overall: well nourished 10/30/2014 None Full Exam - General Constitutional general appearance Overall: well developed 10/30/2014 None Full Exam - General Constitutional general appearance Overall: in no acute distress 10/30/2014 None Full Exam - General Eyes pupils and irises Left pupil: round 10/30/2014 None Full Exam - General Eyes pupils and irises Right pupil: reactive to light 10/30/2014 with film over eye Full Exam - General Ears/Nose/Throat otoscopic exam Overall: external auditory canals clear 10/30/2014 None Full Exam - General Ears/Nose/Throat otoscopic exam Overall: tympanic membranes clear 10/30/2014 None Full Exam - General Ears/Nose/Throat oral cavity/pharynx/larynx Overall: oral mucosa clear 10/30/2014 None Full Exam - General Ears/Nose/Throat oral cavity/pharynx/larynx Overall: oropharyngeal mucosa clear 10/30/2014 None Full Exam - General Respiratory auscultation Overall: breath sounds clear bilaterally 10/30/2014 None Full Exam - General Respiratory respiratory effort/rhythm Overall: no retractions 10/30/2014 None Full Exam - General Respiratory respiratory effort/rhythm Overall: normal rate 10/30/2014 None Full Exam - General Cardiovascular auscultation of heart Rate: regular rate 10/30/2014 None Full Exam - General Cardiovascular auscultation of heart Rhythm: irregularly irregular rhythm 10/30/2014 None Full Exam - General Cardiovascular extremities Overall: no clubbing 10/30/2014 None Full Exam - General Abdomen abdominal exam Overall: no tenderness 10/30/2014 None Full Exam - General Abdomen abdominal exam Overall: normal bowel sounds 10/30/2014 None Full Exam - General Lymphatic neck nodes Overall: anterior cervical chain benign 10/30/2014 None Full Exam - General Lymphatic neck nodes Overall: posterior cervical chain benign 10/30/2014 None Full Exam - General Integument inspection of skin Dermatitis: dryness/flaking 10/30/2014 None Full Exam - General Neurologic gait Overall: no ataxia, no unsteadiness 10/30/2014 None Full Exam - General Neurologic cranial nerves Overall: cranial nerves 1-12 intact 10/30/2014 None Full Exam - General Psychiatric orientation/consciousness Overall: oriented to person, place and time 10/30/2014 None Full Exam - General Psychiatric mood and affect Overall: normal mood and affect 10/30/2014 None Full Exam - General Psychiatric appearance Overall: well-groomed, good eye contact 10/30/2014 None Full Exam - General Constitutional general appearance Overall: well nourished 07/11/2014 None Full Exam - General Constitutional general appearance Overall: well developed 07/11/2014 None Full Exam - General Constitutional general appearance Overall: in no acute distress 07/11/2014 None Full Exam - General Ears/Nose/Throat otoscopic exam Overall: external auditory canals clear 07/11/2014 None Full Exam - General Ears/Nose/Throat otoscopic exam Overall: tympanic membranes clear 07/11/2014 None Full Exam - General Ears/Nose/Throat oral cavity/pharynx/larynx Overall: oral mucosa clear 07/11/2014 None Full Exam - General Ears/Nose/Throat oral cavity/pharynx/larynx Overall: oropharyngeal mucosa clear 07/11/2014 None Full Exam - General Respiratory auscultation Overall: breath sounds clear bilaterally 07/11/2014 None Full Exam - General Respiratory respiratory effort/rhythm Overall: no retractions 07/11/2014 None Full Exam - General Respiratory respiratory effort/rhythm Overall: normal rate 07/11/2014 None Full Exam - General Cardiovascular auscultation of heart Rate: regular rate 07/11/2014 None Full Exam - General Cardiovascular auscultation of heart Rhythm: irregularly irregular rhythm 07/11/2014 None Full Exam - General Cardiovascular extremities Overall: no clubbing 07/11/2014 None Full Exam - General Abdomen abdominal exam Overall: no tenderness 07/11/2014 None Full Exam - General Abdomen abdominal exam Overall: normal bowel sounds 07/11/2014 None Full Exam - General Lymphatic neck nodes Overall: anterior cervical chain benign 07/11/2014 None Full Exam - General Lymphatic neck nodes Overall: posterior cervical chain benign 07/11/2014 None Full Exam - General Integument inspection of skin Dermatitis: dryness/flaking 07/11/2014 None Full Exam - General Neurologic gait Overall: no ataxia, no unsteadiness 07/11/2014 None Full Exam - General Neurologic cranial nerves Overall: cranial nerves 1-12 intact 07/11/2014 None Full Exam - General Psychiatric orientation/consciousness Overall: oriented to person, place and time 07/11/2014 None Full Exam - General Psychiatric mood and affect Overall: normal mood and affect 07/11/2014 None Full Exam - General Psychiatric appearance Overall: well-groomed, good eye contact 07/11/2014 None Full Exam - General Eyes pupils and irises Left pupil: round 07/11/2014 None Full Exam - General Eyes pupils and irises Right pupil: reactive to light 07/11/2014 with film over eye Full Exam - General Constitutional general appearance Overall: well nourished 05/20/2014 None Full Exam - General Constitutional general appearance Overall: well developed 05/20/2014 None Full Exam - General Constitutional general appearance Overall: in no acute distress 05/20/2014 None Full Exam - General Ears/Nose/Throat otoscopic exam Overall: external auditory canals clear 05/20/2014 None Full Exam - General Ears/Nose/Throat otoscopic exam Overall: tympanic membranes clear 05/20/2014 None Full Exam - General Ears/Nose/Throat oral cavity/pharynx/larynx Overall: oral mucosa clear 05/20/2014 None Full Exam - General Ears/Nose/Throat oral cavity/pharynx/larynx Overall: oropharyngeal mucosa clear 05/20/2014 None Full Exam - General Respiratory auscultation Overall: breath sounds clear bilaterally 05/20/2014 None Full Exam - General Respiratory respiratory effort/rhythm Overall: no retractions 05/20/2014 None Full Exam - General Respiratory respiratory effort/rhythm Overall: normal rate 05/20/2014 None Full Exam - General Cardiovascular auscultation of heart Rate: regular rate 05/20/2014 None Full Exam - General Cardiovascular auscultation of heart Rhythm: irregularly irregular rhythm 05/20/2014 None Full Exam - General Cardiovascular extremities Overall: no clubbing 05/20/2014 None Full Exam - General Abdomen abdominal exam Overall: no tenderness 05/20/2014 None Full Exam - General Abdomen abdominal exam Overall: normal bowel sounds 05/20/2014 None Full Exam - General Lymphatic neck nodes Overall: anterior cervical chain benign 05/20/2014 None Full Exam - General Lymphatic neck nodes Overall: posterior cervical chain benign 05/20/2014 None Full Exam - General Integument inspection of skin Dermatitis: dryness/flaking 05/20/2014 None Full Exam - General Neurologic gait Overall: no ataxia, no unsteadiness 05/20/2014 None Full Exam - General Neurologic cranial nerves Overall: cranial nerves 1-12 intact 05/20/2014 None Full Exam - General Psychiatric orientation/consciousness Overall: oriented to person, place and time 05/20/2014 None Full Exam - General Psychiatric mood and affect Overall: normal mood and affect 05/20/2014 None Full Exam - General Psychiatric appearance Overall: well-groomed, good eye contact 05/20/2014 None Full Exam - General Constitutional general appearance Overall: well nourished 04/29/2014 None Full Exam - General Constitutional general appearance Overall: well developed 04/29/2014 None Full Exam - General Constitutional general appearance Overall: in no acute distress 04/29/2014 None Full Exam - General Ears/Nose/Throat otoscopic exam Overall: external auditory canals clear 04/29/2014 None Full Exam - General Ears/Nose/Throat otoscopic exam Overall: tympanic membranes clear 04/29/2014 None Full Exam - General Ears/Nose/Throat oral cavity/pharynx/larynx Overall: oral mucosa clear 04/29/2014 None Full Exam - General Ears/Nose/Throat oral cavity/pharynx/larynx Overall: oropharyngeal mucosa clear 04/29/2014 None Full Exam - General Respiratory auscultation Overall: breath sounds clear bilaterally 04/29/2014 None Full Exam - General Respiratory respiratory effort/rhythm Overall: no retractions 04/29/2014 None Full Exam - General Respiratory respiratory effort/rhythm Overall: normal rate 04/29/2014 None Full Exam - General Cardiovascular auscultation of heart Rate: regular rate 04/29/2014 None Full Exam - General Cardiovascular auscultation of heart Rhythm: irregularly irregular rhythm 04/29/2014 None Full Exam - General Cardiovascular extremities Overall: no clubbing 04/29/2014 None Full Exam - General Abdomen abdominal exam Overall: no tenderness 04/29/2014 None Full Exam - General Abdomen abdominal exam Overall: normal bowel sounds 04/29/2014 None Full Exam - General Lymphatic neck nodes Overall: anterior cervical chain benign 04/29/2014 None Full Exam - General Lymphatic neck nodes Overall: posterior cervical chain benign 04/29/2014 None Full Exam - General Integument inspection of skin Dermatitis: dryness/flaking 04/29/2014 None Full Exam - General Neurologic gait Overall: no ataxia, no unsteadiness 04/29/2014 None Full Exam - General Neurologic cranial nerves Overall: cranial nerves 1-12 intact 04/29/2014 None Full Exam - General Psychiatric orientation/consciousness Overall: oriented to person, place and time 04/29/2014 None Full Exam - General Psychiatric mood and affect Overall: normal mood and affect 04/29/2014 None Full Exam - General Psychiatric appearance Overall: well-groomed, good eye contact 04/29/2014 None Full Exam - General Constitutional general appearance Overall: well nourished 03/20/2014 None Full Exam - General Constitutional general appearance Overall: well developed 03/20/2014 None Full Exam - General Constitutional general appearance Overall: in no acute distress 03/20/2014 None Full Exam - General Ears/Nose/Throat otoscopic exam Overall: external auditory canals clear 03/20/2014 None Full Exam - General Ears/Nose/Throat otoscopic exam Overall: tympanic membranes clear 03/20/2014 None Full Exam - General Ears/Nose/Throat oral cavity/pharynx/larynx Overall: oral mucosa clear 03/20/2014 None Full Exam - General Ears/Nose/Throat oral cavity/pharynx/larynx Overall: oropharyngeal mucosa clear 03/20/2014 None Full Exam - General Respiratory auscultation Overall: breath sounds clear bilaterally 03/20/2014 None Full Exam - General Respiratory respiratory effort/rhythm Overall: no retractions 03/20/2014 None Full Exam - General Respiratory respiratory effort/rhythm Overall: normal rate 03/20/2014 None Full Exam - General Cardiovascular auscultation of heart Rate: regular rate 03/20/2014 None Full Exam - General Cardiovascular auscultation of heart Rhythm: irregularly irregular rhythm 03/20/2014 None Full Exam - General Cardiovascular extremities Overall: no clubbing 03/20/2014 None Full Exam - General Abdomen abdominal exam Overall: no tenderness 03/20/2014 None Full Exam - General Abdomen abdominal exam Overall: normal bowel sounds 03/20/2014 None Full Exam - General Lymphatic neck nodes Overall: anterior cervical chain benign 03/20/2014 None Full Exam - General Lymphatic neck nodes Overall: posterior cervical chain benign 03/20/2014 None Full Exam - General Integument inspection of skin Dermatitis: dryness/flaking 03/20/2014 None Full Exam - General Neurologic gait Overall: no ataxia, no unsteadiness 03/20/2014 None Full Exam - General Neurologic cranial nerves Overall: cranial nerves 1-12 intact 03/20/2014 None Full Exam - General Psychiatric orientation/consciousness Overall: oriented to person, place and time 03/20/2014 None Full Exam - General Psychiatric mood and affect Overall: normal mood and affect 03/20/2014 None Full Exam - General Psychiatric appearance Overall: well-groomed, good eye contact 03/20/2014 None Full Exam - General Constitutional general appearance Overall: well nourished 03/05/2014 None Full Exam - General Constitutional general appearance Overall: well developed 03/05/2014 None Full Exam - General Constitutional general appearance Overall: in no acute distress 03/05/2014 None Full Exam - General Ears/Nose/Throat otoscopic exam Overall: external auditory canals clear 03/05/2014 None Full Exam - General Ears/Nose/Throat otoscopic exam Overall: tympanic membranes clear 03/05/2014 None Full Exam - General Ears/Nose/Throat oral cavity/pharynx/larynx Overall: oral mucosa clear 03/05/2014 None Full Exam - General Ears/Nose/Throat oral cavity/pharynx/larynx Overall: oropharyngeal mucosa clear 03/05/2014 None Full Exam - General Respiratory auscultation Overall: breath sounds clear bilaterally 03/05/2014 None Full Exam - General Respiratory respiratory effort/rhythm Overall: no retractions 03/05/2014 None Full Exam - General Respiratory respiratory effort/rhythm Overall: normal rate 03/05/2014 None Full Exam - General Cardiovascular auscultation of heart Rate: regular rate 03/05/2014 None Full Exam - General Cardiovascular auscultation of heart Rhythm: irregularly irregular rhythm 03/05/2014 None Full Exam - General Cardiovascular extremities Overall: no clubbing 03/05/2014 None Full Exam - General Abdomen abdominal exam Overall: no tenderness 03/05/2014 None Full Exam - General Abdomen abdominal exam Overall: normal bowel sounds 03/05/2014 None Full Exam - General Lymphatic neck nodes Overall: anterior cervical chain benign 03/05/2014 None Full Exam - General Lymphatic neck nodes Overall: posterior cervical chain benign 03/05/2014 None Full Exam - General Integument inspection of skin Dermatitis: dryness/flaking 03/05/2014 None Full Exam - General Neurologic gait Overall: no ataxia, no unsteadiness 03/05/2014 None Full Exam - General Neurologic cranial nerves Overall: cranial nerves 1-12 intact 03/05/2014 None Full Exam - General Psychiatric orientation/consciousness Overall: oriented to person, place and time 03/05/2014 None Full Exam - General Psychiatric mood and affect Overall: normal mood and affect 03/05/2014 None Full Exam - General Psychiatric appearance Overall: well-groomed, good eye contact 03/05/2014 None Full Exam - General Constitutional general appearance Overall: well nourished 01/29/2014 None Full Exam - General Constitutional general appearance Overall: well developed 01/29/2014 None Full Exam - General Constitutional general appearance Overall: in no acute distress 01/29/2014 None Full Exam - General Ears/Nose/Throat otoscopic exam Overall: external auditory canals clear 01/29/2014 None Full Exam - General Ears/Nose/Throat otoscopic exam Overall: tympanic membranes clear 01/29/2014 None Full Exam - General Ears/Nose/Throat oral cavity/pharynx/larynx Overall: oral mucosa clear 01/29/2014 None Full Exam - General Ears/Nose/Throat oral cavity/pharynx/larynx Overall: oropharyngeal mucosa clear 01/29/2014 None Full Exam - General Respiratory auscultation Overall: breath sounds clear bilaterally 01/29/2014 None Full Exam - General Respiratory respiratory effort/rhythm Overall: no retractions 01/29/2014 None Full Exam - General Respiratory respiratory effort/rhythm Overall: normal rate 01/29/2014 None Full Exam - General Cardiovascular auscultation of heart Rate: regular rate 01/29/2014 None Full Exam - General Cardiovascular auscultation of heart Rhythm: irregularly irregular rhythm 01/29/2014 None Full Exam - General Cardiovascular extremities Overall: no clubbing 01/29/2014 None Full Exam - General Abdomen abdominal exam Overall: no tenderness 01/29/2014 None Full Exam - General Abdomen abdominal exam Overall: normal bowel sounds 01/29/2014 None Full Exam - General Lymphatic neck nodes Overall: anterior cervical chain benign 01/29/2014 None Full Exam - General Lymphatic neck nodes Overall: posterior cervical chain benign 01/29/2014 None Full Exam - General Integument inspection of skin Dermatitis: dryness/flaking 01/29/2014 None Full Exam - General Neurologic gait Overall: no ataxia, no unsteadiness 01/29/2014 None Full Exam - General Neurologic cranial nerves Overall: cranial nerves 1-12 intact 01/29/2014 None Full Exam - General Psychiatric orientation/consciousness Overall: oriented to person, place and time 01/29/2014 None Full Exam - General Psychiatric mood and affect Overall: normal mood and affect 01/29/2014 None Full Exam - General Psychiatric appearance Overall: well-groomed, good eye contact 01/29/2014 None Full Exam - General Constitutional general appearance Overall: well nourished 01/14/2014 None Full Exam - General Constitutional general appearance Overall: well developed 01/14/2014 None Full Exam - General Constitutional general appearance Overall: in no acute distress 01/14/2014 None Full Exam - General Ears/Nose/Throat otoscopic exam Overall: external auditory canals clear 01/14/2014 None Full Exam - General Ears/Nose/Throat otoscopic exam Overall: tympanic membranes clear 01/14/2014 None Full Exam - General Ears/Nose/Throat oral cavity/pharynx/larynx Overall: oral mucosa clear 01/14/2014 None Full Exam - General Ears/Nose/Throat oral cavity/pharynx/larynx Overall: oropharyngeal mucosa clear 01/14/2014 None Full Exam - General Respiratory auscultation Overall: breath sounds clear bilaterally 01/14/2014 None Full Exam - General Respiratory respiratory effort/rhythm Overall: no retractions 01/14/2014 None Full Exam - General Respiratory respiratory effort/rhythm Overall: normal rate 01/14/2014 None Full Exam - General Cardiovascular auscultation of heart Rate: regular rate 01/14/2014 None Full Exam - General Cardiovascular auscultation of heart Rhythm: irregularly irregular rhythm 01/14/2014 None Full Exam - General Cardiovascular extremities Overall: no clubbing 01/14/2014 None Full Exam - General Abdomen abdominal exam Overall: no tenderness 01/14/2014 None Full Exam - General Abdomen abdominal exam Overall: normal bowel sounds 01/14/2014 None Full Exam - General Lymphatic neck nodes Overall: anterior cervical chain benign 01/14/2014 None Full Exam - General Lymphatic neck nodes Overall: posterior cervical chain benign 01/14/2014 None Full Exam - General Integument inspection of skin Dermatitis: dryness/flaking 01/14/2014 None Full Exam - General Neurologic gait Overall: no ataxia, no unsteadiness 01/14/2014 None Full Exam - General Neurologic cranial nerves Overall: cranial nerves 1-12 intact 01/14/2014 None Full Exam - General Psychiatric orientation/consciousness Overall: oriented to person, place and time 01/14/2014 None Full Exam - General Psychiatric mood and affect Overall: normal mood and affect 01/14/2014 None Full Exam - General Psychiatric appearance Overall: well-groomed, good eye contact 01/14/2014 None Full Exam - General Constitutional general appearance Overall: well nourished 12/25/2013 None Full Exam - General Constitutional general appearance Overall: well developed 12/25/2013 None Full Exam - General Constitutional general appearance Overall: in no acute distress 12/25/2013 None Full Exam - General Eyes pupils and irises Left pupil: irregular shape 12/25/2013 with scarring clouding the iris Full Exam - General Eyes pupils and irises Right pupil: a normal exam 12/25/2013 None Full Exam - General Ears/Nose/Throat otoscopic exam Overall: external auditory canals clear 12/25/2013 None Full Exam - General Ears/Nose/Throat otoscopic exam Overall: tympanic membranes clear 12/25/2013 None Full Exam - General Ears/Nose/Throat oral cavity/pharynx/larynx Overall: oral mucosa clear 12/25/2013 None Full Exam - General Ears/Nose/Throat oral cavity/pharynx/larynx Overall: oropharyngeal mucosa clear 12/25/2013 None Full Exam - General Respiratory auscultation Overall: breath sounds clear bilaterally 12/25/2013 None Full Exam - General Respiratory respiratory effort/rhythm Overall: no retractions 12/25/2013 None Full Exam - General Respiratory respiratory effort/rhythm Overall: normal rate 12/25/2013 None Full Exam - General Cardiovascular auscultation of heart Rate: regular rate 12/25/2013 None Full Exam - General Cardiovascular auscultation of heart Rhythm: irregularly irregular rhythm 12/25/2013 None Full Exam - General Cardiovascular extremities Overall: no clubbing 12/25/2013 None Full Exam - General Abdomen abdominal exam Overall: no tenderness 12/25/2013 None Full Exam - General Abdomen abdominal exam Overall: normal bowel sounds 12/25/2013 None Full Exam - General Abdomen abdominal exam Skin: presence of a scar 12/25/2013 midline scar - slight amount of fat over right side of abdomen - with no obvious hernia palpated. Full Exam - General Lymphatic neck nodes Overall: anterior cervical chain benign 12/25/2013 None Full Exam - General Lymphatic neck nodes Overall: posterior cervical chain benign 12/25/2013 None Full Exam - General Neurologic gait Overall: no ataxia, no unsteadiness 12/25/2013 None Full Exam - General Neurologic cranial nerves Overall: cranial nerves 1-12 intact 12/25/2013 None Full Exam - General Psychiatric orientation/consciousness Overall: oriented to person, place and time 12/25/2013 None Full Exam - General Psychiatric mood and affect Overall: normal mood and affect 12/25/2013 None Full Exam - General Psychiatric appearance Overall: well-groomed, good eye contact 12/25/2013 None Full Exam - General Constitutional general appearance Overall: well nourished 11/27/2013 None Full Exam - General Constitutional general appearance Overall: well developed 11/27/2013 None Full Exam - General Constitutional general appearance Overall: in no acute distress 11/27/2013 None Full Exam - General Eyes pupils and irises Left pupil: irregular shape 11/27/2013 with scarring clouding the iris Full Exam - General Eyes pupils and irises Right pupil: a normal exam 11/27/2013 None Full Exam - General Ears/Nose/Throat otoscopic exam Overall: external auditory canals clear 11/27/2013 None Full Exam - General Ears/Nose/Throat otoscopic exam Overall: tympanic membranes clear 11/27/2013 None Full Exam - General Ears/Nose/Throat oral cavity/pharynx/larynx Overall: oral mucosa clear 11/27/2013 None Full Exam - General Ears/Nose/Throat oral cavity/pharynx/larynx Overall: oropharyngeal mucosa clear 11/27/2013 None Full Exam - General Respiratory auscultation Overall: breath sounds clear bilaterally 11/27/2013 None Full Exam - General Respiratory respiratory effort/rhythm Overall: no retractions 11/27/2013 None Full Exam - General Respiratory respiratory effort/rhythm Overall: normal rate 11/27/2013 None Full Exam - General Cardiovascular auscultation of heart Rate: regular rate 11/27/2013 None Full Exam - General Cardiovascular auscultation of heart Rhythm: irregularly irregular rhythm 11/27/2013 None Full Exam - General Cardiovascular extremities Overall: no clubbing 11/27/2013 None Full Exam - General Abdomen abdominal exam Overall: no tenderness 11/27/2013 None Full Exam - General Abdomen abdominal exam Overall: normal bowel sounds 11/27/2013 None Full Exam - General Abdomen abdominal exam Skin: presence of a scar 11/27/2013 midline scar - slight amount of fat over right side of abdomen - with no obvious hernia palpated. Full Exam - General Lymphatic neck nodes Overall: anterior cervical chain benign 11/27/2013 None Full Exam - General Lymphatic neck nodes Overall: posterior cervical chain benign 11/27/2013 None Full Exam - General Neurologic gait Overall: no ataxia, no unsteadiness 11/27/2013 None Full Exam - General Neurologic cranial nerves Overall: cranial nerves 1-12 intact 11/27/2013 None Full Exam - General Psychiatric orientation/consciousness Overall: oriented to person, place and time 11/27/2013 None Full Exam - General Psychiatric mood and affect Overall: normal mood and affect 11/27/2013 None Full Exam - General Psychiatric appearance Overall: well-groomed, good eye contact 11/27/2013 None Full Exam - General Constitutional general appearance Overall: well nourished 09/12/2013 None Full Exam - General Constitutional general appearance Overall: well developed 09/12/2013 None Full Exam - General Constitutional general appearance Overall: in no acute distress 09/12/2013 None Full Exam - General Eyes pupils and irises Left pupil: irregular shape 09/12/2013 with scarring clouding the iris Full Exam - General Eyes pupils and irises Right pupil: a normal exam 09/12/2013 None Full Exam - General Ears/Nose/Throat otoscopic exam Overall: external auditory canals clear 09/12/2013 None Full Exam - General Ears/Nose/Throat otoscopic exam Overall: tympanic membranes clear 09/12/2013 None Full Exam - General Ears/Nose/Throat oral cavity/pharynx/larynx Overall: oral mucosa clear 09/12/2013 None Full Exam - General Ears/Nose/Throat oral cavity/pharynx/larynx Overall: oropharyngeal mucosa clear 09/12/2013 None Full Exam - General Respiratory auscultation Overall: breath sounds clear bilaterally 09/12/2013 None Full Exam - General Respiratory respiratory effort/rhythm Overall: no retractions 09/12/2013 None Full Exam - General Respiratory respiratory effort/rhythm Overall: normal rate 09/12/2013 None Full Exam - General Cardiovascular auscultation of heart Rhythm: irregularly irregular rhythm 09/12/2013 None Full Exam - General Cardiovascular extremities Overall: no clubbing 09/12/2013 None Full Exam - General Abdomen abdominal exam Overall: no tenderness 09/12/2013 None Full Exam - General Abdomen abdominal exam Overall: normal bowel sounds 09/12/2013 None Full Exam - General Abdomen abdominal exam Skin: presence of a scar 09/12/2013 midline scar - slight amount of fat over right side of abdomen - with no obvious hernia palpated. Full Exam - General Lymphatic neck nodes Overall: anterior cervical chain benign 09/12/2013 None Full Exam - General Lymphatic neck nodes Overall: posterior cervical chain benign 09/12/2013 None Full Exam - General Neurologic gait Overall: no ataxia, no unsteadiness 09/12/2013 None Full Exam - General Neurologic cranial nerves Overall: cranial nerves 1-12 intact 09/12/2013 None Full Exam - General Psychiatric orientation/consciousness Overall: oriented to person, place and time 09/12/2013 None Full Exam - General Psychiatric mood and affect Overall: normal mood and affect 09/12/2013 None Full Exam - General Psychiatric appearance Overall: well-groomed, good eye contact 09/12/2013 None Full Exam - General Cardiovascular auscultation of heart Rate: regular rate 09/12/2013 None Full Exam - General Constitutional general appearance Overall: well nourished 08/15/2013 None Full Exam - General Constitutional general appearance Overall: well developed 08/15/2013 None Full Exam - General Constitutional general appearance Overall: in no acute distress 08/15/2013 None Full Exam - General Eyes pupils and irises Left pupil: irregular shape 08/15/2013 with scarring clouding the iris Full Exam - General Eyes pupils and irises Right pupil: a normal exam 08/15/2013 None Full Exam - General Ears/Nose/Throat otoscopic exam Overall: external auditory canals clear 08/15/2013 None Full Exam - General Ears/Nose/Throat otoscopic exam Overall: tympanic membranes clear 08/15/2013 None Full Exam - General Ears/Nose/Throat oral cavity/pharynx/larynx Overall: oral mucosa clear 08/15/2013 None Full Exam - General Ears/Nose/Throat oral cavity/pharynx/larynx Overall: oropharyngeal mucosa clear 08/15/2013 None Full Exam - General Respiratory auscultation Overall: breath sounds clear bilaterally 08/15/2013 None Full Exam - General Respiratory respiratory effort/rhythm Overall: no retractions 08/15/2013 None Full Exam - General Respiratory respiratory effort/rhythm Overall: normal rate 08/15/2013 None Full Exam - General Cardiovascular auscultation of heart Rhythm: irregularly irregular rhythm 08/15/2013 None Full Exam - General Cardiovascular extremities Overall: no clubbing 08/15/2013 None Full Exam - General Abdomen abdominal exam Overall: no tenderness 08/15/2013 None Full Exam - General Abdomen abdominal exam Overall: normal bowel sounds 08/15/2013 None Full Exam - General Abdomen abdominal exam Skin: presence of a scar 08/15/2013 midline scar - slight amount of fat over right side of abdomen - with no obvious hernia palpated. Full Exam - General Lymphatic neck nodes Overall: anterior cervical chain benign 08/15/2013 None Full Exam - General Lymphatic neck nodes Overall: posterior cervical chain benign 08/15/2013 None Full Exam - General Neurologic gait Overall: no ataxia, no unsteadiness 08/15/2013 None Full Exam - General Neurologic cranial nerves Overall: cranial nerves 1-12 intact 08/15/2013 None Full Exam - General Psychiatric orientation/consciousness Overall: oriented to person, place and time 08/15/2013 None Full Exam - General Psychiatric mood and affect Overall: normal mood and affect 08/15/2013 None Full Exam - General Psychiatric appearance Overall: well-groomed, good eye contact 08/15/2013 None Full Exam - General Musculoskeletal spine, ribs and pelvis Inspection - left hip: a normal exam 08/15/2013 bruising left lateral hip/thigh to knee Full Exam - General Musculoskeletal spine, ribs and pelvis Palpation - left hip: a normal exam 08/15/2013 None Full Exam - General Constitutional general appearance Overall: well nourished 08/01/2013 None Full Exam - General Constitutional general appearance Overall: well developed 08/01/2013 None Full Exam - General Constitutional general appearance Overall: in no acute distress 08/01/2013 None Full Exam - General Eyes pupils and irises Left pupil: irregular shape 08/01/2013 with scarring clouding the iris Full Exam - General Eyes pupils and irises Right pupil: a normal exam 08/01/2013 None Full Exam - General Ears/Nose/Throat otoscopic exam Overall: external auditory canals clear 08/01/2013 None Full Exam - General Ears/Nose/Throat otoscopic exam Overall: tympanic membranes clear 08/01/2013 None Full Exam - General Ears/Nose/Throat oral cavity/pharynx/larynx Overall: oral mucosa clear 08/01/2013 None Full Exam - General Ears/Nose/Throat oral cavity/pharynx/larynx Overall: oropharyngeal mucosa clear 08/01/2013 None Full Exam - General Respiratory auscultation Overall: breath sounds clear bilaterally 08/01/2013 None Full Exam - General Respiratory respiratory effort/rhythm Overall: no retractions 08/01/2013 None Full Exam - General Respiratory respiratory effort/rhythm Overall: normal rate 08/01/2013 None Full Exam - General Cardiovascular auscultation of heart Rate: regular rate 08/01/2013 None Full Exam - General Cardiovascular auscultation of heart Rhythm: irregularly irregular rhythm 08/01/2013 None Full Exam - General Cardiovascular extremities Overall: no clubbing 08/01/2013 None Full Exam - General Abdomen abdominal exam Overall: no tenderness 08/01/2013 None Full Exam - General Abdomen abdominal exam Overall: normal bowel sounds 08/01/2013 None Full Exam - General Abdomen abdominal exam Skin: presence of a scar 08/01/2013 midline scar - slight amount of fat over right side of abdomen - with no obvious hernia palpated. Full Exam - General Lymphatic neck nodes Overall: anterior cervical chain benign 08/01/2013 None Full Exam - General Lymphatic neck nodes Overall: posterior cervical chain benign 08/01/2013 None Full Exam - General Neurologic gait Overall: no ataxia, no unsteadiness 08/01/2013 None Full Exam - General Neurologic cranial nerves Overall: cranial nerves 1-12 intact 08/01/2013 None Full Exam - General Psychiatric orientation/consciousness Overall: oriented to person, place and time 08/01/2013 None Full Exam - General Psychiatric mood and affect Overall: normal mood and affect 08/01/2013 None Full Exam - General Psychiatric appearance Overall: well-groomed, good eye contact 08/01/2013 None Full Exam - General Constitutional general appearance Overall: well nourished 05/29/2013 None Full Exam - General Constitutional general appearance Overall: well developed 05/29/2013 None Full Exam - General Constitutional general appearance Overall: in no acute distress 05/29/2013 None Full Exam - General Eyes pupils and irises Left pupil: irregular shape 05/29/2013 with scarring clouding the iris Full Exam - General Eyes pupils and irises Right pupil: a normal exam 05/29/2013 None Full Exam - General Ears/Nose/Throat otoscopic exam Overall: external auditory canals clear 05/29/2013 None Full Exam - General Ears/Nose/Throat otoscopic exam Overall: tympanic membranes clear 05/29/2013 None Full Exam - General Ears/Nose/Throat oral cavity/pharynx/larynx Overall: oral mucosa clear 05/29/2013 None Full Exam - General Ears/Nose/Throat oral cavity/pharynx/larynx Overall: oropharyngeal mucosa clear 05/29/2013 None Full Exam - General Respiratory auscultation Overall: breath sounds clear bilaterally 05/29/2013 None Full Exam - General Respiratory respiratory effort/rhythm Overall: no retractions 05/29/2013 None Full Exam - General Respiratory respiratory effort/rhythm Overall: normal rate 05/29/2013 None Full Exam - General Cardiovascular auscultation of heart Rhythm: irregularly irregular rhythm 05/29/2013 None Full Exam - General Cardiovascular extremities Overall: no clubbing 05/29/2013 None Full Exam - General Abdomen abdominal exam Overall: no tenderness 05/29/2013 None Full Exam - General Abdomen abdominal exam Overall: normal bowel sounds 05/29/2013 None Full Exam - General Abdomen abdominal exam Skin: presence of a scar 05/29/2013 midline scar - slight amount of fat over right side of abdomen - with no obvious hernia palpated. Full Exam - General Lymphatic neck nodes Overall: anterior cervical chain benign 05/29/2013 None Full Exam - General Lymphatic neck nodes Overall: posterior cervical chain benign 05/29/2013 None Full Exam - General Neurologic gait Overall: no ataxia, no unsteadiness 05/29/2013 None Full Exam - General Neurologic cranial nerves Overall: cranial nerves 1-12 intact 05/29/2013 None Full Exam - General Psychiatric orientation/consciousness Overall: oriented to person, place and time 05/29/2013 None Full Exam - General Psychiatric mood and affect Overall: normal mood and affect 05/29/2013 None Full Exam - General Psychiatric appearance Overall: well-groomed, good eye contact 05/29/2013 None Full Exam - General Constitutional general appearance Overall: well nourished 05/15/2013 None Full Exam - General Constitutional general appearance Overall: well developed 05/15/2013 None Full Exam - General Constitutional general appearance Overall: in no acute distress 05/15/2013 None Full Exam - General Eyes pupils and irises Left pupil: irregular shape 05/15/2013 with scarring clouding the iris Full Exam - General Eyes pupils and irises Right pupil: a normal exam 05/15/2013 None Full Exam - General Ears/Nose/Throat otoscopic exam Overall: external auditory canals clear 05/15/2013 None Full Exam - General Ears/Nose/Throat otoscopic exam Overall: tympanic membranes clear 05/15/2013 None Full Exam - General Ears/Nose/Throat oral cavity/pharynx/larynx Overall: oral mucosa clear 05/15/2013 None Full Exam - General Ears/Nose/Throat oral cavity/pharynx/larynx Overall: oropharyngeal mucosa clear 05/15/2013 None Full Exam - General Respiratory auscultation Overall: breath sounds clear bilaterally 05/15/2013 None Full Exam - General Respiratory respiratory effort/rhythm Overall: no retractions 05/15/2013 None Full Exam - General Respiratory respiratory effort/rhythm Overall: normal rate 05/15/2013 None Full Exam - General Cardiovascular auscultation of heart Rhythm: irregularly irregular rhythm 05/15/2013 None Full Exam - General Cardiovascular extremities Overall: no clubbing 05/15/2013 None Full Exam - General Abdomen abdominal exam Overall: no tenderness 05/15/2013 None Full Exam - General Abdomen abdominal exam Overall: normal bowel sounds 05/15/2013 None Full Exam - General Abdomen abdominal exam Skin: presence of a scar 05/15/2013 midline scar - slight amount of fat over right side of abdomen - with no obvious hernia palpated. Full Exam - General Lymphatic neck nodes Overall: anterior cervical chain benign 05/15/2013 None Full Exam - General Lymphatic neck nodes Overall: posterior cervical chain benign 05/15/2013 None Full Exam - General Neurologic gait Overall: no ataxia, no unsteadiness 05/15/2013 None Full Exam - General Neurologic cranial nerves Overall: cranial nerves 1-12 intact 05/15/2013 None Full Exam - General Psychiatric orientation/consciousness Overall: oriented to person, place and time 05/15/2013 None Full Exam - General Psychiatric mood and affect Overall: normal mood and affect 05/15/2013 None Full Exam - General Psychiatric appearance Overall: well-groomed, good eye contact 05/15/2013 None Full Exam - General Constitutional general appearance Overall: well nourished 04/23/2013 None Full Exam - General Constitutional general appearance Overall: well developed 04/23/2013 None Full Exam - General Constitutional general appearance Overall: in no acute distress 04/23/2013 None Full Exam - General Eyes pupils and irises Left pupil: irregular shape 04/23/2013 with scarring clouding the iris Full Exam - General Eyes pupils and irises Right pupil: a normal exam 04/23/2013 None Full Exam - General Ears/Nose/Throat otoscopic exam Overall: external auditory canals clear 04/23/2013 None Full Exam - General Ears/Nose/Throat otoscopic exam Overall: tympanic membranes clear 04/23/2013 None Full Exam - General Ears/Nose/Throat oral cavity/pharynx/larynx Overall: oral mucosa clear 04/23/2013 None Full Exam - General Ears/Nose/Throat oral cavity/pharynx/larynx Overall: oropharyngeal mucosa clear 04/23/2013 None Full Exam - General Respiratory auscultation Overall: breath sounds clear bilaterally 04/23/2013 None Full Exam - General Respiratory respiratory effort/rhythm Overall: no retractions 04/23/2013 None Full Exam - General Respiratory respiratory effort/rhythm Overall: normal rate 04/23/2013 None Full Exam - General Cardiovascular auscultation of heart Rhythm: irregularly irregular rhythm 04/23/2013 None Full Exam - General Cardiovascular extremities Overall: no clubbing 04/23/2013 None Full Exam - General Abdomen abdominal exam Overall: no tenderness 04/23/2013 None Full Exam - General Abdomen abdominal exam Overall: normal bowel sounds 04/23/2013 None Full Exam - General Abdomen abdominal exam Skin: presence of a scar 04/23/2013 midline scar - slight amount of fat over right side of abdomen - with no obvious hernia palpated. Full Exam - General Lymphatic neck nodes Overall: anterior cervical chain benign 04/23/2013 None Full Exam - General Lymphatic neck nodes Overall: posterior cervical chain benign 04/23/2013 None Full Exam - General Neurologic gait Overall: no ataxia, no unsteadiness 04/23/2013 None Full Exam - General Neurologic cranial nerves Overall: cranial nerves 1-12 intact 04/23/2013 None Full Exam - General Psychiatric orientation/consciousness Overall: oriented to person, place and time 04/23/2013 None Full Exam - General Psychiatric mood and affect Overall: normal mood and affect 04/23/2013 None Full Exam - General Psychiatric appearance Overall: well-groomed, good eye contact 04/23/2013 None Full Exam - General Constitutional general appearance Overall: well nourished 03/21/2013 None Full Exam - General Constitutional general appearance Overall: well developed 03/21/2013 None Full Exam - General Constitutional general appearance Overall: in no acute distress 03/21/2013 None Full Exam - General Ears/Nose/Throat otoscopic exam Overall: external auditory canals clear 03/21/2013 None Full Exam - General Ears/Nose/Throat otoscopic exam Overall: tympanic membranes clear 03/21/2013 None Full Exam - General Ears/Nose/Throat oral cavity/pharynx/larynx Overall: oral mucosa clear 03/21/2013 None Full Exam - General Ears/Nose/Throat oral cavity/pharynx/larynx Overall: oropharyngeal mucosa clear 03/21/2013 None Full Exam - General Respiratory auscultation Overall: breath sounds clear bilaterally 03/21/2013 None Full Exam - General Respiratory respiratory effort/rhythm Overall: no retractions 03/21/2013 None Full Exam - General Respiratory respiratory effort/rhythm Overall: normal rate 03/21/2013 None Full Exam - General Cardiovascular auscultation of heart Rate: regular rate 03/21/2013 None Full Exam - General Cardiovascular auscultation of heart Rhythm: irregularly irregular rhythm 03/21/2013 None Full Exam - General Cardiovascular extremities Overall: no clubbing 03/21/2013 None Full Exam - General Abdomen abdominal exam Overall: no tenderness 03/21/2013 None Full Exam - General Abdomen abdominal exam Overall: normal bowel sounds 03/21/2013 None Full Exam - General Lymphatic neck nodes Overall: anterior cervical chain benign 03/21/2013 None Full Exam - General Lymphatic neck nodes Overall: posterior cervical chain benign 03/21/2013 None Full Exam - General Neurologic gait Overall: no ataxia, no unsteadiness 03/21/2013 None Full Exam - General Neurologic cranial nerves Overall: cranial nerves 1-12 intact 03/21/2013 None Full Exam - General Psychiatric orientation/consciousness Overall: oriented to person, place and time 03/21/2013 None Full Exam - General Psychiatric mood and affect Overall: normal mood and affect 03/21/2013 None Full Exam - General Psychiatric appearance Overall: well-groomed, good eye contact 03/21/2013 None Full Exam - General Constitutional general appearance Overall: well nourished 01/16/2013 None Full Exam - General Constitutional general appearance Overall: well developed 01/16/2013 None Full Exam - General Constitutional general appearance Overall: in no acute distress 01/16/2013 None Full Exam - General Eyes pupils and irises Left pupil: irregular shape 01/16/2013 with scarring clouding the iris Full Exam - General Eyes pupils and irises Right pupil: a normal exam 01/16/2013 None Full Exam - General Ears/Nose/Throat otoscopic exam Overall: external auditory canals clear 01/16/2013 None Full Exam - General Ears/Nose/Throat otoscopic exam Overall: tympanic membranes clear 01/16/2013 None Full Exam - General Ears/Nose/Throat oral cavity/pharynx/larynx Overall: oral mucosa clear 01/16/2013 None Full Exam - General Ears/Nose/Throat oral cavity/pharynx/larynx Overall: oropharyngeal mucosa clear 01/16/2013 None Full Exam - General Respiratory auscultation Overall: breath sounds clear bilaterally 01/16/2013 None Full Exam - General Respiratory respiratory effort/rhythm Overall: no retractions 01/16/2013 None Full Exam - General Respiratory respiratory effort/rhythm Overall: normal rate 01/16/2013 None Full Exam - General Cardiovascular auscultation of heart Rhythm: irregularly irregular rhythm 01/16/2013 None Full Exam - General Cardiovascular extremities Overall: no clubbing 01/16/2013 None Full Exam - General Abdomen abdominal exam Overall: no tenderness 01/16/2013 None Full Exam - General Abdomen abdominal exam Overall: normal bowel sounds 01/16/2013 None Full Exam - General Abdomen abdominal exam Skin: presence of a scar 01/16/2013 midline scar - slight amount of fat over right side of abdomen - with no obvious hernia palpated. Full Exam - General Lymphatic neck nodes Overall: anterior cervical chain benign 01/16/2013 None Full Exam - General Lymphatic neck nodes Overall: posterior cervical chain benign 01/16/2013 None Full Exam - General Neurologic gait Overall: no ataxia, no unsteadiness 01/16/2013 None Full Exam - General Neurologic cranial nerves Overall: cranial nerves 1-12 intact 01/16/2013 None Full Exam - General Psychiatric orientation/consciousness Overall: oriented to person, place and time 01/16/2013 None Full Exam - General Psychiatric mood and affect Overall: normal mood and affect 01/16/2013 None Full Exam - General Psychiatric appearance Overall: well-groomed, good eye contact 01/16/2013 None Full Exam - General Integument inspection of skin description of wound erythematous 12/14/2012 None Full Exam - General Integument inspection of skin description of wound indurated 12/14/2012 None Full Exam - General Integument inspection of skin description of wound streak-like 12/14/2012 None Full Exam - General Integument inspection of skin description of wound tender 12/14/2012 None Full Exam - General Integument inspection of skin description of wound erythematous 12/12/2012 --Improved Full Exam - General Integument inspection of skin description of wound indurated 12/12/2012 None Full Exam - General Integument inspection of skin description of wound streak-like 12/12/2012 None Full Exam - General Integument inspection of skin description of wound tender 12/12/2012 None Full Exam - General Constitutional general appearance Overall: well nourished 12/11/2012 None Full Exam - General Constitutional general appearance Overall: well developed 12/11/2012 None Full Exam - General Constitutional general appearance Overall: in no acute distress 12/11/2012 None Full Exam - General Psychiatric orientation/consciousness Overall: oriented to person, place and time 12/11/2012 None Full Exam - General Psychiatric mood and affect Overall: normal mood and affect 12/11/2012 None Full Exam - General Psychiatric appearance Overall: well-groomed, good eye contact 12/11/2012 None Full Exam - General Integument inspection of skin description of wound streak-like 12/11/2012 None Full Exam - General Integument inspection of skin description of wound tender 12/11/2012 None Full Exam - General Integument inspection of skin description of wound indurated 12/11/2012 None Full Exam - General Integument inspection of skin description of wound erythematous 12/11/2012 None Full Exam - General Constitutional general appearance Overall: well nourished 12/10/2012 None Full Exam - General Constitutional general appearance Overall: well developed 12/10/2012 None Full Exam - General Constitutional general appearance Overall: in no acute distress 12/10/2012 None Full Exam - General Integument inspection of skin description of wound indurated 12/10/2012 None Full Exam - General Integument inspection of skin description of wound streak-like 12/10/2012 None Full Exam - General Integument inspection of skin description of wound tender 12/10/2012 None Full Exam - General Psychiatric orientation/consciousness Overall: oriented to person, place and time 12/10/2012 None Full Exam - General Psychiatric mood and affect Overall: normal mood and affect 12/10/2012 None Full Exam - General Psychiatric appearance Overall: well-groomed, good eye contact 12/10/2012 None Full Exam - General Integument inspection of skin description of wound erythematous 12/10/2012 None Full Exam - General Constitutional general appearance Overall: well nourished 10/30/2012 None Full Exam - General Constitutional general appearance Overall: well developed 10/30/2012 None Full Exam - General Constitutional general appearance Overall: in no acute distress 10/30/2012 None Full Exam - General Eyes pupils and irises Left pupil: irregular shape 10/30/2012 with scarring clouding the iris Full Exam - General Eyes pupils and irises Right pupil: a normal exam 10/30/2012 None Full Exam - General Ears/Nose/Throat otoscopic exam Overall: external auditory canals clear 10/30/2012 None Full Exam - General Ears/Nose/Throat otoscopic exam Overall: tympanic membranes clear 10/30/2012 None Full Exam - General Ears/Nose/Throat oral cavity/pharynx/larynx Overall: oral mucosa clear 10/30/2012 None Full Exam - General Ears/Nose/Throat oral cavity/pharynx/larynx Overall: oropharyngeal mucosa clear 10/30/2012 None Full Exam - General Respiratory auscultation Overall: breath sounds clear bilaterally 10/30/2012 None Full Exam - General Respiratory respiratory effort/rhythm Overall: no retractions 10/30/2012 None Full Exam - General Respiratory respiratory effort/rhythm Overall: normal rate 10/30/2012 None Full Exam - General Cardiovascular auscultation of heart Rhythm: irregularly irregular rhythm 10/30/2012 None Full Exam - General Cardiovascular extremities Overall: no clubbing 10/30/2012 None Full Exam - General Abdomen abdominal exam Overall: no tenderness 10/30/2012 None Full Exam - General Abdomen abdominal exam Overall: normal bowel sounds 10/30/2012 None Full Exam - General Abdomen abdominal exam Skin: presence of a scar 10/30/2012 midline scar - slight amount of fat over right side of abdomen - with no obvious hernia palpated. Full Exam - General Lymphatic neck nodes Overall: anterior cervical chain benign 10/30/2012 None Full Exam - General Lymphatic neck nodes Overall: posterior cervical chain benign 10/30/2012 None Full Exam - General Neurologic gait Overall: no ataxia, no unsteadiness 10/30/2012 None Full Exam - General Neurologic cranial nerves Overall: cranial nerves 1-12 intact 10/30/2012 None Full Exam - General Psychiatric orientation/consciousness Overall: oriented to person, place and time 10/30/2012 None Full Exam - General Psychiatric mood and affect Overall: normal mood and affect 10/30/2012 None Full Exam - General Psychiatric appearance Overall: well-groomed, good eye contact 10/30/2012 None Full Exam - General Ears/Nose/Throat oral cavity/pharynx/larynx Overall: oral mucosa clear 08/08/2012 None Full Exam - General Ears/Nose/Throat oral cavity/pharynx/larynx Overall: oropharyngeal mucosa clear 08/08/2012 None Full Exam - General Respiratory auscultation Overall: breath sounds clear bilaterally 08/08/2012 None Full Exam - General Respiratory respiratory effort/rhythm Overall: no retractions 08/08/2012 None Full Exam - General Respiratory respiratory effort/rhythm Overall: normal rate 08/08/2012 None Full Exam - General Cardiovascular extremities Overall: no clubbing 08/08/2012 None Full Exam - General Abdomen abdominal exam Overall: no tenderness 08/08/2012 None Full Exam - General Abdomen abdominal exam Overall: normal bowel sounds 08/08/2012 None Full Exam - General Lymphatic neck nodes Overall: anterior cervical chain benign 08/08/2012 None Full Exam - General Lymphatic neck nodes Overall: posterior cervical chain benign 08/08/2012 None Full Exam - General Neurologic gait Overall: no ataxia, no unsteadiness 08/08/2012 None Full Exam - General Neurologic cranial nerves Overall: cranial nerves 1-12 intact 08/08/2012 None Full Exam - General Psychiatric orientation/consciousness Overall: oriented to person, place and time 08/08/2012 None Full Exam - General Psychiatric mood and affect Overall: normal mood and affect 08/08/2012 None Full Exam - General Constitutional general appearance Overall: well nourished 08/08/2012 None Full Exam - General Constitutional general appearance Overall: well developed 08/08/2012 None Full Exam - General Constitutional general appearance Overall: in no acute distress 08/08/2012 None Full Exam - General Ears/Nose/Throat otoscopic exam Overall: external auditory canals clear 08/08/2012 None Full Exam - General Ears/Nose/Throat otoscopic exam Overall: tympanic membranes clear 08/08/2012 None Full Exam - General Psychiatric appearance Overall: well-groomed, good eye contact 08/08/2012 None Full Exam - General Cardiovascular auscultation of heart Rhythm: irregularly irregular rhythm 08/08/2012 None Full Exam - General Abdomen abdominal exam Skin: presence of a scar 08/08/2012 midline scar - slight amount of fat over right side of abdomen - with no obvious hernia palpated. Full Exam - General Eyes pupils and irises Right pupil: a normal exam 08/08/2012 None Full Exam - General Eyes pupils and irises Left pupil: irregular shape 08/08/2012 with scarring clouding the iris Full Exam - General Constitutional general appearance Overall: well nourished 07/11/2012 None Full Exam - General Constitutional general appearance Overall: well developed 07/11/2012 None Full Exam - General Constitutional general appearance Overall: in no acute distress 07/11/2012 None Full Exam - General Ears/Nose/Throat otoscopic exam Overall: external auditory canals clear 07/11/2012 None Full Exam - General Ears/Nose/Throat otoscopic exam Overall: tympanic membranes clear 07/11/2012 None Full Exam - General Ears/Nose/Throat oral cavity/pharynx/larynx Overall: oral mucosa clear 07/11/2012 None Full Exam - General Ears/Nose/Throat oral cavity/pharynx/larynx Overall: oropharyngeal mucosa clear 07/11/2012 None Full Exam - General Respiratory auscultation Overall: breath sounds clear bilaterally 07/11/2012 None Full Exam - General Respiratory respiratory effort/rhythm Overall: no retractions 07/11/2012 None Full Exam - General Respiratory respiratory effort/rhythm Overall: normal rate 07/11/2012 None Full Exam - General Cardiovascular auscultation of heart Rate: regular rate 07/11/2012 None Full Exam - General Cardiovascular auscultation of heart Rhythm: irregularly irregular rhythm 07/11/2012 None Full Exam - General Cardiovascular extremities Overall: no clubbing 07/11/2012 None Full Exam - General Abdomen abdominal exam Overall: no tenderness 07/11/2012 None Full Exam - General Abdomen abdominal exam Overall: normal bowel sounds 07/11/2012 None Full Exam - General Lymphatic neck nodes Overall: anterior cervical chain benign 07/11/2012 None Full Exam - General Lymphatic neck nodes Overall: posterior cervical chain benign 07/11/2012 None Full Exam - General Integument inspection of skin Dermatitis: dryness/flaking 07/11/2012 None Full Exam - General Neurologic gait Overall: no ataxia, no unsteadiness 07/11/2012 None Full Exam - General Neurologic cranial nerves Overall: cranial nerves 1-12 intact 07/11/2012 None Full Exam - General Psychiatric orientation/consciousness Overall: oriented to person, place and time 07/11/2012 None Full Exam - General Psychiatric mood and affect Overall: normal mood and affect 07/11/2012 None Full Exam - General Psychiatric appearance Overall: well-groomed, good eye contact 07/11/2012 None Full Exam - General Constitutional general appearance Overall: well nourished 05/08/2012 None Full Exam - General Constitutional general appearance Overall: well developed 05/08/2012 None Full Exam - General Constitutional general appearance Overall: in no acute distress 05/08/2012 None Full Exam - General Ears/Nose/Throat otoscopic exam Overall: external auditory canals clear 05/08/2012 None Full Exam - General Ears/Nose/Throat otoscopic exam Overall: tympanic membranes clear 05/08/2012 None Full Exam - General Ears/Nose/Throat oral cavity/pharynx/larynx Overall: oral mucosa clear 05/08/2012 None Full Exam - General Ears/Nose/Throat oral cavity/pharynx/larynx Overall: oropharyngeal mucosa clear 05/08/2012 None Full Exam - General Respiratory auscultation Overall: breath sounds clear bilaterally 05/08/2012 None Full Exam - General Respiratory respiratory effort/rhythm Overall: no retractions 05/08/2012 None Full Exam - General Respiratory respiratory effort/rhythm Overall: normal rate 05/08/2012 None Full Exam - General Cardiovascular auscultation of heart Rate: regular rate 05/08/2012 None Full Exam - General Cardiovascular auscultation of heart Rhythm: irregularly irregular rhythm 05/08/2012 None Full Exam - General Cardiovascular extremities Overall: no clubbing 05/08/2012 None Full Exam - General Abdomen abdominal exam Overall: no tenderness 05/08/2012 None Full Exam - General Genitourinary urethra Inspection: no masses 05/08/2012 None Full Exam - General Genitourinary urethra Inspection: no lesions 05/08/2012 None Full Exam - General Abdomen abdominal exam Overall: normal bowel sounds 05/08/2012 None Full Exam - General Lymphatic neck nodes Overall: anterior cervical chain benign 05/08/2012 None Full Exam - General Lymphatic neck nodes Overall: posterior cervical chain benign 05/08/2012 None Full Exam - General Integument inspection of skin Dermatitis: dryness/flaking 05/08/2012 None Full Exam - General Neurologic gait Overall: no ataxia, no unsteadiness 05/08/2012 None Full Exam - General Neurologic cranial nerves Overall: cranial nerves 1-12 intact 05/08/2012 None Full Exam - General Psychiatric orientation/consciousness Overall: oriented to person, place and time 05/08/2012 None Full Exam - General Psychiatric mood and affect Overall: normal mood and affect 05/08/2012 None Full Exam - General Psychiatric appearance Overall: well-groomed, good eye contact 05/08/2012 None Full Exam - General Genitourinary labia and vagina Labia: no lesions present 05/08/2012 None Full Exam - General Genitourinary labia and vagina Vaginal tone: cystocele 05/08/2012 uterus surgically absent - large cystocele and rectocele, Full Exam - General Genitourinary labia and vagina Vaginal tone: rectocele 05/08/2012 None Full Exam - General Genitourinary urethra Inspection: non-tender 05/08/2012 None Full Exam - General Constitutional general appearance Overall: well nourished 04/18/2012 None Full Exam - General Constitutional general appearance Overall: well developed 04/18/2012 None Full Exam - General Constitutional general appearance Overall: in no acute distress 04/18/2012 None Full Exam - General Ears/Nose/Throat otoscopic exam Overall: external auditory canals clear 04/18/2012 None Full Exam - General Ears/Nose/Throat otoscopic exam Overall: tympanic membranes clear 04/18/2012 None Full Exam - General Ears/Nose/Throat oral cavity/pharynx/larynx Overall: oral mucosa clear 04/18/2012 None Full Exam - General Ears/Nose/Throat oral cavity/pharynx/larynx Overall: oropharyngeal mucosa clear 04/18/2012 None Full Exam - General Respiratory auscultation Overall: breath sounds clear bilaterally 04/18/2012 None Full Exam - General Respiratory respiratory effort/rhythm Overall: no retractions 04/18/2012 None Full Exam - General Respiratory respiratory effort/rhythm Overall: normal rate 04/18/2012 None Full Exam - General Cardiovascular auscultation of heart Rate: regular rate 04/18/2012 None Full Exam - General Cardiovascular auscultation of heart Rhythm: irregularly irregular rhythm 04/18/2012 None Full Exam - General Cardiovascular extremities Overall: no clubbing 04/18/2012 None Full Exam - General Abdomen abdominal exam Overall: no tenderness 04/18/2012 None Full Exam - General Abdomen abdominal exam Overall: normal bowel sounds 04/18/2012 None Full Exam - General Lymphatic neck nodes Overall: anterior cervical chain benign 04/18/2012 None Full Exam - General Lymphatic neck nodes Overall: posterior cervical chain benign 04/18/2012 None Full Exam - General Integument inspection of skin Dermatitis: dryness/flaking 04/18/2012 None Full Exam - General Neurologic gait Overall: no ataxia, no unsteadiness 04/18/2012 None Full Exam - General Neurologic cranial nerves Overall: cranial nerves 1-12 intact 04/18/2012 None Full Exam - General Psychiatric orientation/consciousness Overall: oriented to person, place and time 04/18/2012 None Full Exam - General Psychiatric mood and affect Overall: normal mood and affect 04/18/2012 None Full Exam - General Psychiatric appearance Overall: well-groomed, good eye contact 04/18/2012 None Full Exam - General Ears/Nose/Throat otoscopic exam Overall: external auditory canals clear 03/13/2012 None Full Exam - General Ears/Nose/Throat otoscopic exam Overall: tympanic membranes clear 03/13/2012 None Full Exam - General Ears/Nose/Throat oral cavity/pharynx/larynx Overall: oral mucosa clear 03/13/2012 None Full Exam - General Ears/Nose/Throat oral cavity/pharynx/larynx Overall: oropharyngeal mucosa clear 03/13/2012 None Full Exam - General Respiratory auscultation Overall: breath sounds clear bilaterally 03/13/2012 None Full Exam - General Respiratory respiratory effort/rhythm Overall: no retractions 03/13/2012 None Full Exam - General Respiratory respiratory effort/rhythm Overall: normal rate 03/13/2012 None Full Exam - General Cardiovascular auscultation of heart Rate: regular rate 03/13/2012 None Full Exam - General Cardiovascular auscultation of heart Rhythm: irregularly irregular rhythm 03/13/2012 None Full Exam - General Cardiovascular extremities Overall: no clubbing 03/13/2012 None Full Exam - General Lymphatic neck nodes Overall: anterior cervical chain benign 03/13/2012 None Full Exam - General Lymphatic neck nodes Overall: posterior cervical chain benign 03/13/2012 None Full Exam - General Neurologic gait Overall: no ataxia, no unsteadiness 03/13/2012 None Full Exam - General Constitutional general appearance Overall: well developed 03/13/2012 None Full Exam - General Neurologic cranial nerves Overall: cranial nerves 1-12 intact 03/13/2012 None Full Exam - General Psychiatric orientation/consciousness Overall: oriented to person, place and time 03/13/2012 None Full Exam - General Psychiatric mood and affect Overall: normal mood and affect 03/13/2012 None Full Exam - General Constitutional general appearance Evidence of Distress: in distress secondary to pain 03/13/2012 None Full Exam - General Cardiovascular extremities Edema present: pitting 03/13/2012 None Full Exam - General Cardiovascular extremities Edema present: severity 1+ - 4+: 1+ 03/13/2012 bilateral ankles Full Exam - General Abdomen abdominal exam Bowel sounds: hyperactive 03/13/2012 None Full Exam - General Abdomen abdominal exam Skin: a normal exam 03/13/2012 None Full Exam - General Abdomen abdominal exam Epigastric: tender to palpation 03/13/2012 None Full Exam - General Abdomen abdominal exam Right upper quadrant: tender to palpation 03/13/2012 None Full Exam - General Abdomen abdominal exam Left upper quadrant: tender to palpation 03/13/2012 None Full Exam - General Constitutional general appearance Overall: well nourished 02/20/2012 None Full Exam - General Constitutional general appearance Overall: well developed 02/20/2012 None Full Exam - General Constitutional general appearance Overall: in no acute distress 02/20/2012 None Full Exam - General Ears/Nose/Throat otoscopic exam Overall: external auditory canals clear 02/20/2012 None Full Exam - General Ears/Nose/Throat otoscopic exam Overall: tympanic membranes clear 02/20/2012 None Full Exam - General Ears/Nose/Throat oral cavity/pharynx/larynx Overall: oral mucosa clear 02/20/2012 None Full Exam - General Ears/Nose/Throat oral cavity/pharynx/larynx Overall: oropharyngeal mucosa clear 02/20/2012 None Full Exam - General Respiratory auscultation Overall: breath sounds clear bilaterally 02/20/2012 None Full Exam - General Respiratory respiratory effort/rhythm Overall: no retractions 02/20/2012 None Full Exam - General Respiratory respiratory effort/rhythm Overall: normal rate 02/20/2012 None Full Exam - General Cardiovascular auscultation of heart Rate: regular rate 02/20/2012 None Full Exam - General Cardiovascular auscultation of heart Rhythm: irregularly irregular rhythm 02/20/2012 None Full Exam - General Cardiovascular extremities Overall: no clubbing 02/20/2012 None Full Exam - General Abdomen abdominal exam Overall: no tenderness 02/20/2012 None Full Exam - General Abdomen abdominal exam Overall: normal bowel sounds 02/20/2012 None Full Exam - General Lymphatic neck nodes Overall: anterior cervical chain benign 02/20/2012 None Full Exam - General Lymphatic neck nodes Overall: posterior cervical chain benign 02/20/2012 None Full Exam - General Neurologic gait Overall: no ataxia, no unsteadiness 02/20/2012 None Full Exam - General Neurologic cranial nerves Overall: cranial nerves 1-12 intact 02/20/2012 None Full Exam - General Psychiatric orientation/consciousness Overall: oriented to person, place and time 02/20/2012 None Full Exam - General Psychiatric mood and affect Overall: normal mood and affect 02/20/2012 None Full Exam - General Psychiatric appearance Overall: well-groomed, good eye contact 02/20/2012 None Full Exam - General Integument inspection of skin Dermatitis: dryness/flaking 02/20/2012 None Full Exam - General Constitutional general appearance Overall: well nourished 02/13/2012 None Full Exam - General Constitutional general appearance Overall: well developed 02/13/2012 None Full Exam - General Constitutional general appearance Overall: in no acute distress 02/13/2012 None Full Exam - General Ears/Nose/Throat otoscopic exam Overall: external auditory canals clear 02/13/2012 None Full Exam - General Ears/Nose/Throat otoscopic exam Overall: tympanic membranes clear 02/13/2012 None Full Exam - General Ears/Nose/Throat oral cavity/pharynx/larynx Overall: oral mucosa clear 02/13/2012 None Full Exam - General Ears/Nose/Throat oral cavity/pharynx/larynx Overall: oropharyngeal mucosa clear 02/13/2012 None Full Exam - General Respiratory auscultation Overall: breath sounds clear bilaterally 02/13/2012 None Full Exam - General Respiratory respiratory effort/rhythm Overall: no retractions 02/13/2012 None Full Exam - General Respiratory respiratory effort/rhythm Overall: normal rate 02/13/2012 None Full Exam - General Cardiovascular auscultation of heart Rate: regular rate 02/13/2012 None Full Exam - General Cardiovascular auscultation of heart Rhythm: irregularly irregular rhythm 02/13/2012 None Full Exam - General Cardiovascular extremities Overall: no clubbing 02/13/2012 None Full Exam - General Abdomen abdominal exam Overall: no tenderness 02/13/2012 None Full Exam - General Abdomen abdominal exam Overall: normal bowel sounds 02/13/2012 None Full Exam - General Lymphatic neck nodes Overall: anterior cervical chain benign 02/13/2012 None Full Exam - General Lymphatic neck nodes Overall: posterior cervical chain benign 02/13/2012 None Full Exam - General Neurologic gait Overall: no ataxia, no unsteadiness 02/13/2012 None Full Exam - General Neurologic cranial nerves Overall: cranial nerves 1-12 intact 02/13/2012 None Full Exam - General Psychiatric orientation/consciousness Overall: oriented to person, place and time 02/13/2012 None Full Exam - General Psychiatric mood and affect Overall: normal mood and affect 02/13/2012 None Full Exam - General Psychiatric appearance Overall: well-groomed, good eye contact 02/13/2012 None Full Exam - General Psychiatric appearance Overall: well-groomed, good eye contact 02/01/2012 None Full Exam - General Cardiovascular auscultation of heart Rate: regular rate 02/01/2012 None Full Exam - General Cardiovascular auscultation of heart Rhythm: irregularly irregular rhythm 02/01/2012 None Full Exam - General Ears/Nose/Throat oral cavity/pharynx/larynx Overall: oral mucosa clear 02/01/2012 None Full Exam - General Ears/Nose/Throat oral cavity/pharynx/larynx Overall: oropharyngeal mucosa clear 02/01/2012 None Full Exam - General Respiratory auscultation Overall: breath sounds clear bilaterally 02/01/2012 None Full Exam - General Respiratory respiratory effort/rhythm Overall: no retractions 02/01/2012 None Full Exam - General Respiratory respiratory effort/rhythm Overall: normal rate 02/01/2012 None Full Exam - General Cardiovascular extremities Overall: no clubbing 02/01/2012 None Full Exam - General Abdomen abdominal exam Overall: no tenderness 02/01/2012 None Full Exam - General Abdomen abdominal exam Overall: normal bowel sounds 02/01/2012 None Full Exam - General Lymphatic neck nodes Overall: anterior cervical chain benign 02/01/2012 None Full Exam - General Lymphatic neck nodes Overall: posterior cervical chain benign 02/01/2012 None Full Exam - General Neurologic gait Overall: no ataxia, no unsteadiness 02/01/2012 None Full Exam - General Neurologic cranial nerves Overall: cranial nerves 1-12 intact 02/01/2012 None Full Exam - General Psychiatric orientation/consciousness Overall: oriented to person, place and time 02/01/2012 None Full Exam - General Psychiatric mood and affect Overall: normal mood and affect 02/01/2012 None Full Exam - General Constitutional general appearance Overall: well nourished 02/01/2012 None Full Exam - General Constitutional general appearance Overall: well developed 02/01/2012 None Full Exam - General Constitutional general appearance Overall: in no acute distress 02/01/2012 None Full Exam - General Ears/Nose/Throat otoscopic exam Overall: external auditory canals clear 02/01/2012 None Full Exam - General Ears/Nose/Throat otoscopic exam Overall: tympanic membranes clear 02/01/2012 None Full Exam - General Psychiatric appearance Overall: well-groomed, good eye contact 2012 None Full Exam - General Cardiovascular auscultation of heart Rhythm: regularly irregular rhythm 2012 None Full Exam - General Cardiovascular auscultation of heart Rate: regular rate 2012 None Full Exam - General Constitutional general appearance Overall: well nourished 2012 None Full Exam - General Constitutional general appearance Overall: well developed 2012 None Full Exam - General Constitutional general appearance Overall: in no acute distress 2012 None Full Exam - General Ears/Nose/Throat otoscopic exam Overall: external auditory canals clear 2012 None Full Exam - General Ears/Nose/Throat otoscopic exam Overall: tympanic membranes clear 2012 None Full Exam - General Ears/Nose/Throat oral cavity/pharynx/larynx Overall: oral mucosa clear 2012 None Full Exam - General Ears/Nose/Throat oral cavity/pharynx/larynx Overall: oropharyngeal mucosa clear 2012 None Full Exam - General Respiratory auscultation Overall: breath sounds clear bilaterally 2012 None Full Exam - General Respiratory respiratory effort/rhythm Overall: no retractions 2012 None Full Exam - General Respiratory respiratory effort/rhythm Overall: normal rate 2012 None Full Exam - General Cardiovascular extremities Overall: no clubbing 2012 None Full Exam - General Abdomen abdominal exam Overall: no tenderness 2012 None Full Exam - General Abdomen abdominal exam Overall: normal bowel sounds 2012 None Full Exam - General Lymphatic neck nodes Overall: anterior cervical chain benign 2012 None Full Exam - General Lymphatic neck nodes Overall: posterior cervical chain benign 2012 None Full Exam - General Neurologic gait Overall: no ataxia, no unsteadiness 2012 None Full Exam - General Neurologic cranial nerves Overall: cranial nerves 1-12 intact 2012 None Full Exam - General Psychiatric orientation/consciousness Overall: oriented to person, place and time 2012 None Full Exam - General Psychiatric mood and affect Overall: normal mood and affect 2012 None Full Exam - General Constitutional general appearance Overall: well nourished 12/01/2011 None Full Exam - General Constitutional general appearance Overall: well developed 12/01/2011 None Full Exam - General Constitutional general appearance Overall: in no acute distress 12/01/2011 None Full Exam - General Ears/Nose/Throat otoscopic exam Overall: external auditory canals clear 12/01/2011 None Full Exam - General Ears/Nose/Throat otoscopic exam Overall: tympanic membranes clear 12/01/2011 None Full Exam - General Ears/Nose/Throat oral cavity/pharynx/larynx Overall: oral mucosa clear 12/01/2011 None Full Exam - General Ears/Nose/Throat oral cavity/pharynx/larynx Overall: oropharyngeal mucosa clear 12/01/2011 None Full Exam - General Respiratory auscultation Overall: breath sounds clear bilaterally 12/01/2011 None Full Exam - General Respiratory respiratory effort/rhythm Overall: no retractions 12/01/2011 None Full Exam - General Respiratory respiratory effort/rhythm Overall: normal rate 12/01/2011 None Full Exam - General Cardiovascular auscultation of heart Overall: regular rate 12/01/2011 None Full Exam - General Cardiovascular auscultation of heart Overall: normal heart sounds 12/01/2011 None Full Exam - General Cardiovascular auscultation of heart Overall: no murmurs 12/01/2011 None Full Exam - General Cardiovascular extremities Overall: no clubbing 12/01/2011 None Full Exam - General Chest/Breast breast/chest inspection Overall: normal chest shape 12/01/2011 None Full Exam - General Abdomen abdominal exam Overall: no tenderness 12/01/2011 None Full Exam - General Abdomen abdominal exam Overall: normal bowel sounds 12/01/2011 None Full Exam - General Lymphatic neck nodes Overall: anterior cervical chain benign 12/01/2011 None Full Exam - General Lymphatic neck nodes Overall: posterior cervical chain benign 12/01/2011 None Full Exam - General Neurologic gait Overall: no ataxia, no unsteadiness 12/01/2011 None Full Exam - General Neurologic cranial nerves Overall: cranial nerves 1-12 intact 12/01/2011 None Full Exam - General Psychiatric orientation/consciousness Overall: oriented to person, place and time 12/01/2011 None Full Exam - General Psychiatric mood and affect Overall: normal mood and affect 12/01/2011 None Full Exam - General Psychiatric appearance Overall: well-groomed, good eye contact 12/01/2011 None Full Exam - General Ears/Nose/Throat oral cavity/pharynx/larynx Overall: oral mucosa clear 11/23/2011 None Full Exam - General Ears/Nose/Throat oral cavity/pharynx/larynx Overall: oropharyngeal mucosa clear 11/23/2011 None Full Exam - General Lymphatic neck nodes Overall: anterior cervical chain benign 11/23/2011 None Full Exam - General Lymphatic neck nodes Overall: posterior cervical chain benign 11/23/2011 None Full Exam - General Neurologic gait Overall: no ataxia, no unsteadiness 11/23/2011 None Full Exam - General Neurologic cranial nerves Overall: cranial nerves 1-12 intact 11/23/2011 None Full Exam - General Psychiatric orientation/consciousness Overall: oriented to person, place and time 11/23/2011 None Full Exam - General Psychiatric mood and affect Overall: normal mood and affect 11/23/2011 None Full Exam - General Psychiatric appearance Overall: well-groomed, good eye contact 11/23/2011 None Full Exam - General Respiratory auscultation Overall: breath sounds clear bilaterally 11/23/2011 None Full Exam - General Respiratory respiratory effort/rhythm Overall: no retractions 11/23/2011 None Full Exam - General Respiratory respiratory effort/rhythm Overall: normal rate 11/23/2011 None Full Exam - General Ears/Nose/Throat otoscopic exam Overall: external auditory canals clear 11/23/2011 None Full Exam - General Abdomen abdominal exam Overall: no tenderness 11/23/2011 None Full Exam - General Abdomen abdominal exam Overall: normal bowel sounds 11/23/2011 None Full Exam - General Cardiovascular auscultation of heart Overall: regular rate 11/23/2011 None Full Exam - General Cardiovascular auscultation of heart Overall: normal heart sounds 11/23/2011 None Full Exam - General Cardiovascular auscultation of heart Overall: no murmurs 11/23/2011 None Full Exam - General Cardiovascular extremities Overall: no clubbing 11/23/2011 None Full Exam - General Chest/Breast breast/chest inspection Overall: normal chest shape 11/23/2011 None Full Exam - General Constitutional general appearance Overall: well nourished 11/23/2011 None Full Exam - General Constitutional general appearance Overall: well developed 11/23/2011 None Full Exam - General Constitutional general appearance Overall: in no acute distress 11/23/2011 None Full Exam - General Ears/Nose/Throat otoscopic exam Overall: tympanic membranes clear 11/23/2011 None Full Exam - ENT Constitutional general appearance Overall: well nourished 10/17/2011 None Full Exam - ENT Constitutional general appearance Overall: well developed 10/17/2011 None Full Exam - ENT Constitutional general appearance Overall: in no acute distress 10/17/2011 None Full Exam - ENT Ears/Nose/Throat otoscopic exam Left external auditory canal: complete cerumen impaction 10/17/2011 None Full Exam - ENT Ears/Nose/Throat otoscopic exam Left external auditory canal: a normal exam 10/17/2011 after cerumen irrigated with water pic Full Exam - ENT Neurologic orientation Overall: oriented to person, place and time 10/17/2011 None Full Exam - General Abdomen abdominal exam Overall: no tenderness 10/03/2011 None Full Exam - General Abdomen abdominal exam Overall: normal bowel sounds 10/03/2011 None Full Exam - General Cardiovascular auscultation of heart Overall: regular rate 10/03/2011 None Full Exam - General Cardiovascular auscultation of heart Overall: normal heart sounds 10/03/2011 None Full Exam - General Cardiovascular auscultation of heart Overall: no murmurs 10/03/2011 None Full Exam - General Cardiovascular extremities Overall: no clubbing 10/03/2011 None Full Exam - General Chest/Breast breast/chest inspection Overall: normal chest shape 10/03/2011 None Full Exam - General Constitutional general appearance Overall: well nourished 10/03/2011 None Full Exam - General Constitutional general appearance Overall: well developed 10/03/2011 None Full Exam - General Constitutional general appearance Overall: in no acute distress 10/03/2011 None Full Exam - General Ears/Nose/Throat otoscopic exam Overall: tympanic membranes clear 10/03/2011 None Full Exam - General Ears/Nose/Throat oral cavity/pharynx/larynx Overall: oral mucosa clear 10/03/2011 None Full Exam - General Ears/Nose/Throat oral cavity/pharynx/larynx Overall: oropharyngeal mucosa clear 10/03/2011 None Full Exam - General Lymphatic neck nodes Overall: anterior cervical chain benign 10/03/2011 None Full Exam - General Lymphatic neck nodes Overall: posterior cervical chain benign 10/03/2011 None Full Exam - General Neurologic gait Overall: no ataxia, no unsteadiness 10/03/2011 None Full Exam - General Neurologic cranial nerves Overall: cranial nerves 1-12 intact 10/03/2011 None Full Exam - General Psychiatric orientation/consciousness Overall: oriented to person, place and time 10/03/2011 None Full Exam - General Psychiatric mood and affect Overall: normal mood and affect 10/03/2011 None Full Exam - General Psychiatric appearance Overall: well-groomed, good eye contact 10/03/2011 None Full Exam - General Respiratory auscultation Overall: breath sounds clear bilaterally 10/03/2011 None Full Exam - General Respiratory respiratory effort/rhythm Overall: no retractions 10/03/2011 None Full Exam - General Respiratory respiratory effort/rhythm Overall: normal rate 10/03/2011 None Full Exam - General Ears/Nose/Throat otoscopic exam Left external auditory canal: complete cerumen impaction 10/03/2011 None Full Exam - General Ears/Nose/Throat otoscopic exam Right external auditory canal: minimal cerumen 10/03/2011 None Full Exam - General Constitutional general appearance Overall: well nourished 08/08/2011 None Full Exam - General Constitutional general appearance Overall: well developed 08/08/2011 None Full Exam - General Constitutional general appearance Overall: in no acute distress 08/08/2011 None Full Exam - General Ears/Nose/Throat otoscopic exam Overall: external auditory canals clear 08/08/2011 None Full Exam - General Ears/Nose/Throat otoscopic exam Overall: tympanic membranes clear 08/08/2011 None Full Exam - General Ears/Nose/Throat oral cavity/pharynx/larynx Overall: oral mucosa clear 08/08/2011 None Full Exam -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 factors 09/01/2015 None arrhythmia Alleviating Factors medication 09/01/2015 None arrhythmia Pertinent Findings Denies anxiety 09/01/2015 None arrhythmia Pertinent Findings Denies vomiting 09/01/2015 None arrhythmia Pertinent Findings Denies nausea 09/01/2015 None arrhythmia Pertinent Findings Denies loss of consciousness 09/01/2015 None hematuria Quality acute 05/26/2015 None hematuria Onset and Resolution sudden in onset 05/26/2015 None hematuria Onset of Symptom 3 days ago 05/26/2015 None hematuria Severity moderate 05/26/2015 None hematuria Alleviating Factors medication 05/26/2015 None hematuria Pertinent Findings Denies altered mental status 05/26/2015 None hematuria Pertinent Findings Denies back pain 05/26/2015 None hematuria Pertinent Findings Denies bladder pain 05/26/2015 None hematuria Pertinent Findings Denies fever 05/26/2015 None foot pain Location on the right 05/21/2015 None foot pain Quality constant 05/21/2015 None foot pain Location at the MP joint of the great toe 05/21/2015 None foot pain Onset of Symptom 2 days ago 05/21/2015 None foot pain Frequency of Episodes daily 05/21/2015 None foot pain Pertinent Findings limping 05/21/2015 None foot pain Pertinent Findings pain with movement 05/21/2015 None skin lesion Onset and Resolution ongoing 05/21/2015 None skin lesion Quality flat 05/21/2015 None skin lesion Location right lower leg 05/21/2015 None skin lesion Quality non-tender 05/21/2015 None skin lesion Quality pigmented 05/21/2015 brown in color vertigo Quality intermittent 05/07/2015 None vertigo Onset and Resolution ongoing 05/07/2015 None vertigo Pertinent Findings dizziness 05/07/2015 None vertigo Pertinent Findings Denies nausea 05/07/2015 None vertigo Pertinent Findings Denies syncope 05/07/2015 None vertigo Pertinent Findings Denies dyspnea 05/07/2015 None vertigo Triggers no known associated factors 05/07/2015 None vertigo Limitation on Activities does not limit activities 05/07/2015 None abdominal pain Location in the RUQ 03/23/2015 None abdominal pain Onset of Symptom 4 days ago 03/23/2015 None abdominal pain Pertinent Findings Denies back pain 03/23/2015 None abdominal pain Pertinent Findings bloating 03/23/2015 None abdominal pain Pertinent Findings Denies increased appetite 03/23/2015 None abdominal pain Pertinent Findings Denies nausea 03/23/2015 None abdominal pain Quality improving 03/23/2015 resolved abdominal pain Onset and Resolution resolved 03/23/2015 None abdominal pain Limitation on Activities does not limit activities 03/23/2015 None abdominal pain Frequency of Episodes decreasing 03/23/2015 None abdominal pain Significant Medical Conditions history of abdominal surgery 03/23/2015 None abdominal pain Triggers no known associated factors 03/23/2015 None abdominal pain Alleviating Factors rest 03/23/2015 None abdominal pain Location in the RUQ 03/09/2015 None abdominal pain Quality constant 03/09/2015 None abdominal pain Onset of Symptom 4 days ago 03/09/2015 None abdominal pain Pertinent Findings Denies back pain 03/09/2015 None abdominal pain Pertinent Findings bloating 03/09/2015 None abdominal pain Pertinent Findings Denies increased appetite 03/09/2015 None abdominal pain Pertinent Findings Denies nausea 03/09/2015 None urinary urgency Onset and Resolution ongoing 10/30/2014 None urinary urgency Pertinent Findings Denies bladder pain 10/30/2014 reports that her urine has been red x 2 weeks urinary incontinence Onset and Resolution ongoing 10/30/2014 None urinary incontinence Pertinent Findings Denies pelvic pain 10/30/2014 None urinary incontinence Pertinent Findings Denies bladder pain 10/30/2014 None ~generic Frequency of Episodes _ weeks 10/30/2014 fecal incontinence- happened twice in 3 weeks small amounts urinary incontinence Quality chronic 10/30/2014 None urinary incontinence Quality urge incontinence 10/30/2014 None urinary incontinence Triggers exertion 10/30/2014 None sore throat Location on both sides 07/11/2014 None sore throat Onset of Symptom 2 days ago 07/11/2014Monday sore throat Pertinent Findings Denies fever 07/11/2014 96.9 yesterday and 93.9 this mornign according to patient. sore throat Pertinent Findings nasal congestion 07/11/2014 is having a lot of nasal drainage at night urinary incontinence Quality intermittent 05/20/2014 None urinary incontinence Onset and Resolution ongoing 05/20/2014 None urinary incontinence Pertinent Findings Denies bladder pain 05/20/2014 None urinary incontinence Pertinent Findings urinary urgency 05/20/2014 None urinary incontinence Onset of Symptom during adulthood 05/20/2014 None hematuria Quality acute 04/29/2014 None hematuria Onset and Resolution ongoing 04/29/2014 None hematuria Onset of Symptom 1 weeks ago 04/29/2014 None hematuria Severity mild 04/29/2014 None hematuria Frequency of Episodes unchanged 04/29/2014 None hematuria Triggers no known associated factors 04/29/2014 None hematuria Pertinent Findings Denies bladder pain 04/29/2014 None hematuria Pertinent Findings Denies fever 04/29/2014 None hematuria Pertinent Findings Denies nausea 04/29/2014 None hematuria Pertinent Findings urinary urgency 04/29/2014 None weight loss Quality worsening 04/29/2014 None weight loss Onset and Resolution ongoing 04/29/2014 None weight loss Frequency of Episodes increasing 04/29/2014 None weight loss Diet is unchanged 04/29/2014 None weight loss Triggers no known associated factors 04/29/2014 None arrhythmia Quality irregular beats 04/29/2014 afib-recent digoxin level arrhythmia Onset and Resolution ongoing 04/29/2014 None arrhythmia Triggers no known associated factors 04/29/2014 None sore throat Onset of Symptom 3 days ago 03/20/2014 None hypertension Quality chronic 03/20/2014 None hypertension Onset and Resolution ongoing 03/20/2014 None hypertension Onset of Symptom during adulthood 03/20/2014 None hypertension Blood Pressure Values pt checking blood pressure - see scanned document 03/20/2014 None hypertension Severity mild 03/20/2014 None hypertension Triggers no known associated factors 03/20/2014 None hypertension Alleviating Factors medication 03/20/2014 None hypertension Exacerbating Factors stress 03/20/2014 None hypertension Pertinent Findings decreased energy 03/20/2014 None hypertension Pertinent Findings Denies dizziness 03/20/2014 None hypertension Pertinent Findings dyspnea 03/20/2014 constantly for over 40 years hypertension Pertinent Findings Denies edema 03/20/2014 None sore throat Quality acute 03/20/2014 None sore throat Onset and Resolution sudden in onset 03/20/2014 None sore throat Limitation on Activities does not limit oral intake 03/20/2014 None sore throat Timing of Episodes in the morning 03/20/2014 None sore throat Pertinent Findings cough 03/20/2014 dry, mostly when lying down sore throat Pertinent Findings decreased energy level 03/20/2014 None sore throat Pertinent Findings ill contacts 03/20/2014 sat next to neighbor in [place] who had tonsillitis sore throat Pertinent Findings hoarseness 03/20/2014 intermittent hypertension Quality chronic 03/05/2014 None hypertension Onset and Resolution ongoing 03/05/2014 None hypertension Onset of Symptom during adulthood 03/05/2014 None hypertension Blood Pressure Values pt checking blood pressure - see scanned document 03/05/2014 None hypertension Severity mild 03/05/2014 None hypertension Triggers no known associated factors 03/05/2014 None hypertension Alleviating Factors medication 03/05/2014 None hypertension Exacerbating Factors stress 03/05/2014 None hypertension Pertinent Findings decreased energy 03/05/2014 None hypertension Pertinent Findings Denies dizziness 03/05/2014 None hypertension Pertinent Findings dyspnea 03/05/2014 constantly for over 40 years hypertension Pertinent Findings Denies edema 03/05/2014 None hypertension Blood Pressure Values pt checking blood pressure - see scanned document 01/29/2014 None hypertension Pertinent Findings Denies dizziness 01/29/2014 None hypertension Pertinent Findings Denies dyspnea 01/29/2014 None hypertension Pertinent Findings Denies edema 01/29/2014 None diarrhea Quality loose 01/29/2014 None diarrhea Onset and Resolution ongoing 01/29/2014 None diarrhea Frequency of Episodes 4-6 stools per day 01/29/2014 None diarrhea Quality worsening 01/29/2014 - pt states that she has been taking "gluten cutter" - just started taking it with every meal - glutten digestive formula with enzymes in the capsule which is supposed to help aide digestion of the gluten diarrhea Triggers no known associated factors 01/29/2014 None diarrhea Pertinent Findings Denies emesis 01/29/2014 None diarrhea Pertinent Findings Denies fever 01/29/2014 None diarrhea Pertinent Findings Denies nausea 01/29/2014 None diarrhea Pertinent Findings lethargy 01/29/2014 None hypertension Pertinent Findings decreased energy 01/29/2014 None diarrhea Quality watery 01/29/2014 - pt states that her daughter had giardia - she is wondering if she can be checked for giardia as well - diarrhea Quality loose 01/14/2014 None diarrhea Onset of Symptom 10 days ago 01/14/2014 None diarrhea Triggers meals 01/14/2014 None diarrhea Alleviating Factors antidiarrheal agent 01/14/2014 None diarrhea Pertinent Findings fecal urgency 01/14/2014 None diarrhea Pertinent Findings Denies cramping 01/14/2014 None diarrhea Pertinent Findings Denies fever 01/14/2014 None diarrhea Pertinent Findings Denies emesis 01/14/2014 None diarrhea Pertinent Findings Denies nausea 01/14/2014 None diarrhea Pertinent Findings lethargy 01/14/2014 None diarrhea Pertinent Findings bloating 01/14/2014 lots of gas diarrhea Onset and Resolution ongoing 01/14/2014 None diarrhea Limitation on Activities does not limit activities 01/14/2014 None diarrhea Frequency of Episodes daily 01/14/2014 None diarrhea Timing of Episodes after meals 01/14/2014 None diarrhea Exacerbating Factors eating 01/14/2014 None hypertension Blood Pressure Values pt checking blood pressure - see scanned document 12/25/2013 None hypertension Pertinent Findings Denies decreased energy 12/25/2013 None hypertension Pertinent Findings Denies dizziness 12/25/2013 None hypertension Pertinent Findings Denies dyspnea 12/25/2013 None hypertension Pertinent Findings Denies edema 12/25/2013 None hypertension Quality chronic 12/25/2013 None hypertension Onset and Resolution ongoing 12/25/2013 None hypertension Onset of Symptom during adulthood 12/25/2013 None hypertension Triggers no known associated factors 12/25/2013 None hypertension Alleviating Factors medication 12/25/2013 None hypertension Exacerbating Factors stress 12/25/2013 None hypertension Severity mild 12/25/2013 None abdominal pain Quality intermittent 11/27/2013 None abdominal pain Onset of Symptom 2 weeks ago 11/27/2013 None abdominal pain Pertinent Findings bloating 11/27/2013 None abdominal pain Pertinent Findings Denies fever 11/27/2013 None abdominal pain Pertinent Findings Denies nausea 11/27/2013 None hypertension Blood Pressure Values pt checking blood pressure - see scanned document 11/27/2013 None hypertension Pertinent Findings dizziness 11/27/2013 doesnt feel dizzy but has lack of balance hypertension Pertinent Findings Denies dyspnea 11/27/2013 None hypertension Pertinent Findings edema 11/27/2013 None skin lesion Quality raised 11/27/2013 None skin lesion Onset of Symptom 2 months ago 11/27/2013 right hand, middle finger abdominal pain Location in the LUQ 11/27/2013 pt states that she thinks she has gas around her heart - in her left chest/abdomen hypertension Onset and Resolution ongoing 11/27/2013 None hypertension Quality chronic 11/27/2013 None hypertension Triggers no known associated factors 11/27/2013 None hypertension Alleviating Factors medication 11/27/2013 None hypertension Exacerbating Factors stress 11/27/2013 None hypertension Exacerbating Factors change in dietary habits 11/27/2013 None hypertension Quality chronic 09/12/2013 None hypertension Onset and Resolution ongoing 09/12/2013 None hypertension Blood Pressure Values patient checking blood pressure at home - did not bring in readings 09/12/2013 None hypertension Pertinent Findings Denies confusion 09/12/2013 None hypertension Pertinent Findings Denies decreased energy 09/12/2013 None hypertension Pertinent Findings Denies dizziness 09/12/2013 None hypertension Onset of Symptom during adulthood 09/12/2013 None blood pressure followup Quality chronic 08/15/2013 None blood pressure followup Pertinent Findings Denies decreased energy 08/15/2013 None blood pressure followup Pertinent Findings Denies dizziness 08/15/2013 None blood pressure followup Pertinent Findings Denies dyspnea 08/15/2013 None blood pressure followup Pertinent Findings Denies edema 08/15/2013 None blood pressure followup Blood Pressure Values pt checking blood pressure - see scanned document 08/15/2013 None hip pain Location on the left 08/15/2013 None hip pain Quality acute 08/15/2013 None hip pain Onset and Resolution ongoing 08/15/2013 None hip pain Onset of Symptom 8 days ago 08/15/2013 noticed large bruise on 08/10. Denies injury hip pain Limitation on Activities allows ambulation 08/15/2013 None hip pain Severity moderate 08/15/2013 None hypertension Quality chronic 08/01/2013 None hypertension Pertinent Findings Denies decreased energy 08/01/2013 None hypertension Pertinent Findings Denies dizziness 08/01/2013 None hypertension Pertinent Findings Denies dyspnea 08/01/2013 None hypertension Pertinent Findings edema 08/01/2013 None hematuria Quality intermittent 08/01/2013 None hematuria Onset of Symptom 1 months ago 08/01/2013 None hematuria Pertinent Findings Denies bladder pain 08/01/2013 None hematuria Pertinent Findings Denies fever 08/01/2013 None hematuria Pertinent Findings urinary urgency 08/01/2013 None urinary urgency Quality chronic 08/01/2013 None hypertension Onset and Resolution ongoing 08/01/2013 None hypertension Onset of Symptom during adulthood 08/01/2013 None hematuria Quality acute 07/01/2013 None hematuria Onset and Resolution resolved 07/01/2013 pt states she finished antibioitc and has no further hematuria arrhythmia Quality intermittent 05/29/2013 None arrhythmia Onset and Resolution ongoing 05/29/2013 None arrhythmia Quality chronic 05/29/2013 patient says she is doing well. still has the ups and downs with a-fib but feels alright. arrhythmia Pertinent Findings anxiety 05/29/2013 None arrhythmia Pertinent Findings Denies back pain 05/29/2013 None arrhythmia Pertinent Findings Denies lethargy 05/29/2013 None arrhythmia Pertinent Findings palpitations 05/29/2013 None arrhythmia Exacerbating Factors activity 05/29/2013 None arrhythmia Alleviating Factors medication 05/29/2013 None arrhythmia Limitation on Activities moderately limits activities 05/29/2013 None Hospital Follow Up _ Other: _ 05/15/2013 atrial fib, restarted on lanoxin Hospital Follow Up Exacerbating Factors medication 05/15/2013 digoxin had been stopped Hospital Follow Up Onset and Resolution sudden in onset 05/15/2013 None Hospital Follow Up Severity moderate 05/15/2013 None Hospital Follow Up Pertinent Findings Denies pain 05/15/2013 None dizziness Quality acute 04/23/2013 patient states she laid down to take a nap after each episode and felt fine when she woke up. no known causes. dizziness Onset and Resolution sudden in onset 04/23/2013 patient states she just feels weird when these episodes come on. denies any vision changes, other than pressure behind her eyes. dizziness Onset and Resolution ongoing 04/23/2013 None dizziness Triggers no known associated factors 04/23/2013 None dizziness Pertinent Findings Denies double vision 04/23/2013 None dizziness Pertinent Findings Denies blurred vision 04/23/2013 None dizziness Pertinent Findings lightheadedness 04/23/2013 None dizziness Pertinent Findings Denies tachycardia 04/23/2013 None dizziness Pertinent Findings Denies vomiting 04/23/2013 None dizziness Pertinent Findings Denies fever 04/23/2013 None dizziness Limitation on Activities moderately limits activities 04/23/2013 None abdominal pain Location in the RLQ 03/21/2013 None abdominal pain Onset and Resolution resolved 03/21/2013 None abdominal pain Limitation on Activities does not limit activities 03/21/2013 None abdominal pain Triggers no known associated factors 03/21/2013 None abdominal pain Pertinent Findings Denies abdominal distension 03/21/2013 None abdominal pain Pertinent Findings Denies vomiting 03/21/2013 None abdominal pain Pertinent Findings Denies nausea 03/21/2013 None abdominal pain Pertinent Findings Denies intestinal obstruction 03/21/2013 None abdominal pain Pertinent Findings Denies ileus 03/21/2013 None abdominal pain Significant Medical Conditions irritable bowel 03/21/2013 None hypertension Quality chronic 01/16/2013 None hypertension Onset and Resolution ongoing 01/16/2013 None hypertension Blood Pressure Values pt checking blood pressure - see scanned document 01/16/2013 None hypertension Onset of Symptom during adulthood 01/16/2013 None hypertension Frequency of Episodes unchanged 01/16/2013 None hypertension Triggers no known associated factors 01/16/2013 None hypertension Pertinent Findings Denies anxiety 01/16/2013 None hypertension Pertinent Findings Denies confusion 01/16/2013 None hypertension Pertinent Findings Denies decreased energy 01/16/2013 None hypertension Pertinent Findings Denies dizziness 01/16/2013 None cellulitis Quality acute 12/14/2012 None cellulitis Onset and Resolution sudden in onset 12/14/2012 this morning cellulitis Limitation on Activities moderately limits activities 12/14/2012 None cellulitis Significant Medical Conditions trauma 12/14/2012 skin tear was cleansed and cauterized yesterday - but pt noticed increase in pain yesterday evening early this morning cellulitis Significant Medications anticoagulants 12/14/2012 None cellulitis Pertinent Findings arthralgias 12/14/2012 None cellulitis Pertinent Findings bleeding 12/14/2012 None cellulitis Pertinent Findings redness 12/14/2012 None cellulitis Pertinent Findings tenderness 12/14/2012 None cellulitis Pertinent Findings warmth 12/14/2012 None cellulitis Quality acute 12/12/2012 None cellulitis Onset and Resolution sudden in onset 12/12/2012 this morning cellulitis Limitation on Activities moderately limits activities 12/12/2012 None cellulitis Significant Medical Conditions trauma 12/12/2012 skin tear was cleansed and cauterized yesterday - but pt noticed increase in pain yesterday evening early this morning cellulitis Significant Medications anticoagulants 12/12/2012 None cellulitis Pertinent Findings arthralgias 12/12/2012 None cellulitis Pertinent Findings bleeding 12/12/2012 None cellulitis Pertinent Findings redness 12/12/2012 None cellulitis Pertinent Findings tenderness 12/12/2012 None cellulitis Pertinent Findings warmth 12/12/2012 None cellulitis Quality acute 12/11/2012 None cellulitis Onset and Resolution sudden in onset 12/11/2012 this morning cellulitis Limitation on Activities moderately limits activities 12/11/2012 None cellulitis Significant Medical Conditions trauma 12/11/2012 skin tear was cleansed and cauterized yesterday - but pt noticed increase in pain yesterday evening early this morning cellulitis Significant Medications anticoagulants 12/11/2012 None cellulitis Pertinent Findings arthralgias 12/11/2012 None cellulitis Pertinent Findings bleeding 12/11/2012 None cellulitis Pertinent Findings redness 12/11/2012 None cellulitis Pertinent Findings tenderness 12/11/2012 None cellulitis Pertinent Findings warmth 12/11/2012 None cellulitis Quality acute 12/10/2012 None cellulitis Limitation on Activities moderately limits activities 12/10/2012 None cellulitis Significant Medications anticoagulants 12/10/2012 None cellulitis Pertinent Findings arthralgias 12/10/2012 None cellulitis Pertinent Findings bleeding 12/10/2012 None cellulitis Pertinent Findings redness 12/10/2012 None cellulitis Pertinent Findings tenderness 12/10/2012 None cellulitis Pertinent Findings warmth 12/10/2012 None finger pain Location in the right thumb 10/30/2012 None finger pain Onset of Symptom 1 months ago 10/30/2012 None finger pain Exacerbating Factors finger flexion 10/30/2012 None finger pain Exacerbating Factors activity 10/30/2012 None finger pain Quality acute 10/30/2012 states it "clicks" finger pain Severity moderate 10/30/2012 None blood pressure followup Quality chronic 10/30/2012 None blood pressure followup Onset and Resolution ongoing 10/30/2012 None blood pressure followup Onset of Symptom during adulthood 10/30/2012 None blood pressure followup Blood Pressure Values pt checking blood pressure - see scanned document 10/30/2012 None abnormal bleeding and bruising Onset and Resolution ongoing 10/30/2012 states she is bruising really easily arrhythmia Quality chronic 08/08/2012 None arrhythmia Quality improving 08/08/2012 None arrhythmia Quality irregular beats 08/08/2012 None arrhythmia Limitation on Activities moderately limits activities 08/08/2012 at the end of the day [place] is quite fatigued arrhythmia Triggers no known associated factors 08/08/2012 None arrhythmia Pertinent Findings Denies anxiety 08/08/2012 None arrhythmia Pertinent Findings Denies back pain 08/08/2012 None arrhythmia Pertinent Findings Denies dizziness 08/08/2012 None arrhythmia Pertinent Findings lethargy 08/08/2012 None arrhythmia Pertinent Findings Denies palpitations 08/08/2012 None arrhythmia Pertinent Findings Denies syncope 08/08/2012 None edema Triggers no known associated factors 07/11/2012 None edema Alleviating Factors recumbency 07/11/2012 None edema Significant Past Medical History cardiac disease 07/11/2012 None abdominal pain Location in the RLQ 07/11/2012 None edema Quality chronic 07/11/2012 states the edema is better abdominal pain Onset of Symptom 1 days ago 07/11/2012 None abdominal pain Quality aching 07/11/2012 None abdominal pain Quality burning 07/11/2012 None abdominal pain Pertinent Findings Denies abdominal distension 07/11/2012 None abdominal pain Pertinent Findings Denies bloating 07/11/2012 None abdominal pain Pertinent Findings Denies chills 07/11/2012 None abdominal pain Significant Medical Conditions history of abdominal surgery 07/11/2012 None edema Onset and Resolution ongoing 07/11/2012 None edema Pertinent Findings Denies back pain 07/11/2012 None edema Pertinent Findings Denies dyspnea on exertion 07/11/2012 None urinary retention/hesitancy Quality reduced force of stream 05/08/2012 None urinary retention/hesitancy Quality straining 05/08/2012 None urinary retention/hesitancy Pertinent Findings gynecologic abnormality 05/08/2012 states she had prob inserting premarin vag cream urinary retention/hesitancy Onset and Resolution sudden in onset 05/08/2012 None urinary retention/hesitancy Onset of Symptom 2 weeks ago 05/08/2012 None urinary retention/hesitancy Severity moderate 05/08/2012 None urinary retention/hesitancy Significant Medical Conditions urinary tract infections 05/08/2012 None urinary retention/hesitancy Triggers no known associated factors 05/08/2012 None Hospital Follow Up Quality acute illness 04/18/2012 None Hospital Follow Up Quality improving 04/18/2012 None Hospital Follow Up Onset of Symptom 6+ weeks ago 04/18/2012 None Hospital Follow Up Severity severe 04/18/2012 pt was severely ill - had bowel ischemia Hospital Follow Up Mechanism 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 04/18/2012 None abdominal pain Radiating the back 03/13/2012 None abdominal pain Quality acute 03/13/2012 None abdominal pain Onset and Resolution sudden in onset 03/13/2012 3:30am abdominal pain Pertinent Findings abdominal distension 03/13/2012 None abdominal pain Pertinent Findings back pain 03/13/2012 None abdominal pain Pertinent Findings bloating 03/13/2012 None abdominal pain Pertinent Findings nausea 03/13/2012 None abdominal pain Limitation on Activities is incapacitating 03/13/2012 None abdominal pain Location in the periumbilical area 03/13/2012 None abdominal pain Location in the RUQ 03/13/2012 None abdominal pain Location in the LUQ 03/13/2012 None abdominal pain Frequency of Episodes increasing 03/13/2012 None abdominal pain Timing of Episodes in the morning 03/13/2012 States the pain woke her up about 2:30am. abdominal pain Triggers no known associated factors 03/13/2012 States she had a normal BM yesterday abdominal pain Pertinent Findings vomiting 03/13/2012 None abdominal pain Pertinent Findings Denies hematemesis 03/13/2012 None abdominal pain Pertinent Findings Denies chills 03/13/2012 None shortness of breath Quality air hunger 02/20/2012 states she feels like she can't get a deep breath. shortness of breath Limitation on Activities does not limit activities 02/20/2012 None shortness of breath Onset and Resolution sudden in onset 02/20/2012 states has been worse since being dx with atrial fibrillation dysuria Onset and Resolution ongoing 02/20/2012 states she feels like she isn't emptying her bladder dysuria Quality chronic 02/20/2012 None dysuria Limitation on Activities moderately limits urination 02/20/2012 None dysuria Triggers no known associated factors 02/20/2012 None shortness of breath Onset of Symptom during adulthood 02/20/2012 None shortness of breath Significant Medical Conditions cardiac disease 02/20/2012 None shortness of breath Significant Medical Conditions arrhythmias 02/20/2012 None shortness of breath Significant Medications digoxin 02/20/2012 None shortness of breath Triggers activity 02/20/2012 None shortness of breath Pertinent Findings Denies chest discomfort 02/20/2012 None shortness of breath Pertinent Findings Denies cough 02/20/2012 None shortness of breath Pertinent Findings Denies dysphagia 02/20/2012 None shortness of breath Pertinent Findings Denies edema 02/20/2012 None shortness of breath Alleviating Factors rest 02/20/2012 None shortness of breath Exacerbating Factors exertion 02/20/2012 None hematuria Quality acute 02/13/2012 None hematuria Onset and Resolution sudden in onset 02/13/2012 None hematuria Onset of Symptom 1 days ago 02/13/2012 None hematuria Pertinent Findings Denies chills 02/13/2012 None hematuria Pertinent Findings back pain 02/13/2012 None hematuria Frequency of Episodes increasing 02/13/2012 states also has itching. also states has hemorrhoids which have been flaring recently fatigue Quality chronic 02/13/2012 None fatigue Quality worsening 02/13/2012 None fatigue Onset and Resolution ongoing 02/13/2012 None hematuria Severity mild 02/13/2012 None hematuria Triggers activity 02/13/2012 States she takes bathes daily and does a water class a couple of times per week. hematuria Pertinent Findings Denies altered mental status 02/13/2012 None hematuria Pertinent Findings Denies lightheadedness 02/13/2012 None hematuria Pertinent Findings Denies nausea 02/13/2012 None hematuria Pertinent Findings Denies pelvic pain 02/13/2012 None hematuria Pertinent Findings Denies vomiting 02/13/2012 None urinary retention/hesitancy Onset of Symptom 8 months ago 02/01/2012 feels like she can't fully empty bladder urinary retention/hesitancy Pertinent Findings Denies bladder pain 02/01/2012 None medication follow up Location oral intake 02/01/2012 wants to know if she should take meds on empty or full stomach medication follow up Quality chronic 02/01/2012 None medication follow up Additional Comments medication: digoxin and pradaxa 02/01/2012 pt states that she cannot afford the pradaxa medication follow up Significant Past Medical History Other: afib 02/01/2012 None arrhythmia Quality tachycardia 2012 states has returned to walking and exercise and doing well shortness of breath Quality chronic 2012 None shortness of breath Onset and Resolution ongoing 2012 None arrhythmia Quality chronic 2012 None arrhythmia Quality improving 2012 None arrhythmia Quality irregular beats 2012 None arrhythmia Onset of Symptom 3 weeks ago 2012 None arrhythmia Limitation on Activities moderately limits activities 2012 at the end of the day [place] is quite fatigued arrhythmia Triggers no known associated factors 2012 None arrhythmia Pertinent Findings Denies anxiety 2012 None arrhythmia Pertinent Findings Denies back pain 2012 None arrhythmia Pertinent Findings Denies dizziness 2012 None arrhythmia Pertinent Findings lethargy 2012 None arrhythmia Pertinent Findings Denies syncope 2012 None arrhythmia Pertinent Findings Denies palpitations 2012 None shortness of breath Onset of Symptom during adulthood 2012 None shortness of breath Significant Medical Conditions arrhythmias 2012 None shortness of breath Significant Medications digoxin 2012 None shortness of breath Triggers activity 2012 None shortness of breath Pertinent Findings Denies aspiration 2012 None shortness of breath Pertinent Findings Denies apnea 2012 None abdominal pain Location in the epigastric area 12/01/2011 None abdominal pain Quality aching 12/01/2011 None abdominal pain Quality cramping 12/01/2011 None abdominal pain Quality sharp 12/01/2011 None abdominal pain Onset of Symptom 8-10 hours ago 12/01/2011 None abdominal pain Onset and Resolution sudden in onset 12/01/2011 occured immediately after drinking a boost that was outdated. abdominal pain Triggers stress 12/01/2011 pt states that her blood pressure last night was extremely elevated and she went to the emergency room. She states that her blood pressure was 203/100 and eventually came down to 128/62 with a heart rate of 64 this morning. abdominal pain Pertinent Findings Denies back pain 12/01/2011 None abdominal pain Pertinent Findings Denies abdominal distension 12/01/2011 None abdominal pain Pertinent Findings Denies chills 12/01/2011 None abdominal pain Pertinent Findings Denies cough 12/01/2011 None abdominal pain Pertinent Findings bloating 12/01/2011 pt is constipated all of the time with very hard stools urinary urgency Quality acute 11/23/2011 None urinary urgency Onset and Resolution sudden in onset 11/23/2011 None urinary frequency Quality acute 11/23/2011 None urinary frequency Onset of Symptom 2-3 weeks ago 11/23/2011 None urinary frequency Pertinent Findings Denies back pain 11/23/2011 None urinary frequency Pertinent Findings urinary urgency 11/23/2011 None urinary urgency Pertinent Findings Denies back pain 11/23/2011 None hypertension Quality chronic 11/23/2011 None urinary urgency Onset of Symptom 1 months ago 11/23/2011 states urine has gotten darker for past month. Drinking plenty of fluids. More urgency and frequency than usual. Still has urge incontinence but that has been going on for years-vesicare not helping. hypertension Onset and Resolution ongoing 11/23/2011 states mistakenly didn't take lisinopril for 1 month. has been back on it for two weeks. Took pills about 45 minutes before appointment today. urinary urgency Limitation on Activities does not limit activities 11/23/2011 None urinary urgency Frequency of Episodes increasing 11/23/2011 None urinary frequency Onset and Resolution ongoing 11/23/2011 None urinary frequency Triggers no known associated factors 11/23/2011 None hypertension Onset of Symptom during adulthood 11/23/2011 None hypertension Frequency of Episodes unchanged 11/23/2011 None hypertension Triggers no known associated factors 11/23/2011 None cerumen Quality acute 10/17/2011 None cerumen Onset and Resolution ongoing 10/17/2011 None cerumen Limitation on Activities does not limit hearing 10/17/2011 None cerumen Frequency of Episodes unchanged 10/17/2011 None cerumen Location in the left ear 10/17/2011 None cerumen Triggers no known associated factors 10/17/2011 None cerumen Alleviating Factors cerumenex 10/17/2011 None edema Quality chronic 10/03/2011 None edema Quality painless 10/03/2011 ankles edema Onset and Resolution gradual in onset 10/03/2011 worse by evening but goes down during night. edema Onset and Resolution ongoing 10/03/2011 but better since she is wearing the support socks edema Limitation on Activities does not limit activities 10/03/2011 None edema Triggers no known associated factors 10/03/2011 None edema Pertinent Findings Denies back pain 10/03/2011 None edema Timing of Episodes in the evening 10/03/2011 None edema Location on both ankles 10/03/2011 None hypertension Quality chronic 08/08/2011 None hypertension Onset and Resolution ongoing 08/08/2011 None pruritus Location-Major in a generalized area 08/08/2011 CONCERNED IT MAY BE SOME OF HER MEDS hypertension Blood Pressure Values pt checking blood pressure - see scanned document 08/08/2011 None hypertension Severity mild 08/08/2011 None hypertension Alleviating Factors medication 08/08/2011 None hypertension Exacerbating Factors stress 08/08/2011 None hypertension Pertinent Findings anxiety 08/08/2011 None hypertension Triggers stress 08/08/2011 None new lesion Location-Head/Neck on the palate 05/09/2011 just occured prior to appointment, was eating a sausage biscuit and drinking coffee myalgias Location on the left leg 05/09/2011 None myalgias Location on the right leg 05/09/2011 None myalgias Quality cramping 05/09/2011 None myalgias Onset and Resolution ongoing 05/09/2011 None myalgias Onset of Symptom during adulthood 05/09/2011 None myalgias Frequency of Episodes decreasing 05/09/2011 None myalgias Timing of Episodes at night 05/09/2011 None myalgias Timing of Episodes during sleep 05/09/2011 None myalgias Alleviating Factors medication 05/09/2011 pt started on diltiazem and has noted a decrease in the symptoms new lesion Quality acute 05/09/2011 None new lesion Quality aching 05/09/2011 None new lesion Quality painful 05/09/2011 None new lesion Quality peeling 05/09/2011 None new lesion Onset and Resolution sudden in onset 05/09/2011 None new lesion Limitation on Activities does not limit activities 05/09/2011 but is painful weight loss Quality acute 03/29/2011 None weight loss Onset and Resolution ongoing 03/29/2011 however, has started to liberalize diet and has gained 2 pounds in the past 3 weeks weight loss Onset of Symptom 3-4 months ago 03/29/2011 None weight loss Frequency of Episodes decreasing 03/29/2011 None weight loss Triggers unintentional weight loss 03/29/2011 None weight loss Alleviating Factors change in dietary habits 03/29/2011 None weight loss Alleviating Factors exercise 03/29/2011 None neck pain Location in the trapezius muscle 03/29/2011 None neck pain Quality aching 03/29/2011 None neck pain Quality discomfort 03/29/2011 None neck pain Onset and Resolution ongoing 03/29/2011 None neck pain Onset of Symptom during adulthood 03/29/2011 None neck pain Limitation on Activities moderately limits activities 03/29/2011 None neck pain Timing of Episodes upon awakening 03/29/2011 None palpitations Quality rapid and regular beats 03/15/2011 notices it matias when is under stress palpitations Pertinent Findings tachycardia 03/15/2011 None urinary frequency Quality worsening 03/15/2011 stopped vesicare, concerned it could cause UTI. 2 UTI in past month weight loss Onset and Resolution ongoing 03/15/2011 in [place] weighed 111 urinary frequency Limitation on Activities does not limit activities 03/15/2011 None urinary frequency Timing of Episodes at night 03/15/2011 None urinary frequency Timing of Episodes during sleep 03/15/2011 None urinary frequency Significant Medical Conditions urinary tract infections 03/15/2011 None urinary frequency Alleviating Factors medication 03/15/2011 None palpitations Onset and Resolution sudden in onset 03/15/2011 None palpitations Onset and Resolution ongoing 03/15/2011 None weight loss Quality acute 03/15/2011 None weight loss Weight Status has lost 6 pounds in 6weeks 03/15/2011 None weight loss Diet is unchanged 03/15/2011 None weight loss Triggers unintentional weight loss 03/15/2011 None palpitations Limitation on Activities moderately limits activities 03/15/2011 None palpitations Frequency of Episodes monthly 03/15/2011 None palpitations Length of Episodes 5 minutes 03/15/2011 None palpitations Triggers stress 03/15/2011 None palpitations Triggers activity 03/15/2011 None palpitations Alleviating Factors rest 03/15/2011 None palpitations Exacerbating Factors activity 03/15/2011 None Advance Directives No Advance Directive data Encounters Encounter Performer Location Codes Date ([id number]) 30753 EST. PATIENT, LEVEL III Diagnosis: Chronic atrial fibrillation[ICD10: I48.2] Diagnosis: Cough[ICD10: R05] Laura Bahena MD, [facility] CPT-4: 13338 12/06/2018 ([id number]) 95231 EST. PATIENT, LEVEL III Diagnosis: Acute laryngopharyngitis[ICD10: J06.0] Laura Bahena MD, [facility] CPT-4: 45366 11/30/[id number]) 60500 EST. 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 PATIENT, LEVEL III Diagnosis: Raynaud's syndrome without gangrene[ICD10: I73.00] Diagnosis: Pain in left hand[ICD10: M79.642] Diagnosis: Pain in right hand[ICD10: M79.641] Karma Bahena MD, [facility] CPT- 4: 49528 10/09/2018 [id number] EST. PATIENT, LEVEL III Diagnosis: Cough[ICD10: R05] Diagnosis: Acute laryngopharyngitis[ICD10: J06.0] Diagnosis: Other allergic rhinitis[ICD10: J30.89] Diagnosis: Raynaud's syndrome without gangrene[ICD10: I73.00] Katharine Bahena MD, [facility] CPT-4: 04655 09/12/2018 ([id number]) 65977 EST. PATIENT, LEVEL IV Diagnosis: Raynaud's syndrome without gangrene[ICD10: I73.00] Diagnosis: Pain in right toe(s)[ICD10: M79.674] Diagnosis: Chronic atrial fibrillation[ICD10: I48.2] Karma Bahena MD, [facility] CPT-4: 05938 08/14/2018 ([id number]) 67519 EST. PATIENT, LEVEL IV Diagnosis: Chronic atrial fibrillation[ICD10: I48.2] Diagnosis: Sebaceous cyst[ICD10: L72.3] Diagnosis: Raynaud's syndrome without gangrene[ICD10: I73.00] Karma Bahena MD [facility] CPT-4: 40679 07/26/2018 ([id number]) 50101 EST. PATIENT, LEVEL IV Diagnosis: Essential (primary) hypertension[ICD10: I10] Diagnosis: Atrophy of thyroid (acquired)[ICD10: E03.4] Diagnosis: Gastro-esophageal reflux disease without esophagitis[ICD10: K21.9] Karma Bahena MD [facility] CPT-4: 27988 06/04/2018 ([id number]) 75284 EST. PATIENT, LEVEL IV Diagnosis: Essential (primary) hypertension[ICD10: I10] Diagnosis: Atrophy of thyroid (acquired)[ICD10: E03.4] Diagnosis: Other mcc (current) drug therapy[ICD10: Z79.899] Karma Bahena MD, [facility] CPT-4: 33696 01/31/2018 ([id number]) 96065 EST. PATIENT, LEVEL IV Diagnosis: Essential (primary) hypertension[ICD10: I10] Diagnosis: Chronic atrial fibrillation[ICD10: I48.2] Diagnosis: Allergic rhinitis due to pollen[ICD10: J30.1] Diagnosis: Cough[ICD10: R05] Karma Bahena MD, [facility] CPT-4: 78712 12/14/2017 06765 EST. PATIENT, LEVEL IV Diagnosis: Other allergic rhinitis[ICD10: J30.89] Katharine Bahena MD, [facility] CPT- 4: 44216 12/07/2017 ([id number]) 73228 EST. PATIENT, LEVEL IV Diagnosis: Essential (primary) hypertension[ICD10: I10] Diagnosis: Chronic atrial fibrillation[ICD10: I48.2] Diagnosis: Atrophy of thyroid (acquired)[ICD10: E03.4] Karma Bahena MD, [facility] CPT-4: 74980 11/14/2017 ([id number]) 95109 EST. PATIENT, LEVEL IV Diagnosis: Essential (primary) hypertension[ICD10: I10] Diagnosis: Localized edema[ICD10: R60.0] Diagnosis: Encounter for immunization[ICD10: Z23] Diagnosis: Age-related osteoporosis without current pathological fracture[ICD10: M81.0] Karma Bahena MD, [facility] CPT-4: 20639 03/27/2017 ([id number]) 00242 EST. PATIENT, LEVEL IV Diagnosis: Essential (primary) hypertension[ICD10: I10] Diagnosis: Chronic atrial fibrillation[ICD10: I48.2] Diagnosis: Dysphonia[ICD10: R49.0] Karma Bahena MD, [facility] CPT-4: 23259 01/19/2017 ([id number]) Miscellaneous no charge Diagnosis: Cough[ICD10: R05] Diagnosis: Acute upper respiratory infection, unspecified[ICD10: J06.9] Laura Bahena MD, [facility] CPT-4: 43700 11/29/2016 [id number] EST. PATIENT, LEVEL III Diagnosis: Cough[ICD10: R05] Diagnosis: Acute laryngopharyngitis[ICD10: J06.0] Katharine Bahena MD, [facility] CPT- 4: 78132 11/23/2016 ([id number]) 59986 EST. PATIENT, LEVEL III Diagnosis: Acute laryngopharyngitis[ICD10: J06.0] Laura Bahena MD, [facility] CPT-4: 03096 11/21/2016 ([id number]) Miscellaneous no charge Diagnosis: Laceration without foreign body of right forearm, subsequent encounter[ICD10: S51.811D] Karma Bahena MD, [facility] CPT-4: 94038 11/17/2016 ([id number]) Miscellaneous no charge Diagnosis: Laceration without foreign body of right forearm, subsequent encounter[ICD10: S51.811D] Karma Bahena MD [facility] CPT-4: 48118 11/14/2016 ([id number]) Miscellaneous no charge Diagnosis: Laceration without foreign body of right forearm, subsequent encounter[ICD10: S51.811D] Karma Bahena MD [facility] CPT-4: 96602 11/11/2016 ([id number]) Miscellaneous no charge Diagnosis: Laceration without foreign body of right forearm, subsequent encounter[ICD10: S51.811D] Karma Bahena MD [facility] CPT-4: 32605 11/10/2016 ([id number]) 19365 EST. PATIENT, LEVEL II Diagnosis: Laceration without foreign body of right forearm, subsequent encounter[ICD10: S51.811D] Karma Bahena MD [facility] CPT-4: 94847 11/08/2016 ([id number]) 27039 EST. PATIENT, LEVEL IV Diagnosis: Atrophy of thyroid (acquired)[ICD10: E03.4] Diagnosis: Chronic atrial fibrillation[ICD10: I48.2] Diagnosis: Laceration without foreign body of right forearm, subsequent encounter[ICD10: S51.811D] Karma Bahena MD [facility] CPT-4: 26481 11/02/2016 ([id number]) 78899 EST. PATIENT, LEVEL III Diagnosis: Laceration without foreign body of right forearm, initial encounter[ICD10: S51.811A] Laura Bahena MD, [facility] CPT-4: 62650 10/27/2016 ([id number]) 44017 EST. PATIENT, LEVEL IV Diagnosis: Essential (primary) hypertension[ICD10: I10] Diagnosis: Chronic atrial fibrillation[ICD10: I48.2] Karma Bahena MD, [facility] CPT-4: 45833 08/31/2016 ([id number]) 58072 EST. PATIENT, LEVEL IV Diagnosis: Localized edema[ICD10: R60.0] Diagnosis: Essential (primary) hypertension[ICD10: I10] Diagnosis: Abdominal distension (gaseous)[ICD10: R14.0] Karma Bahena MD [facility] CPT-4: 67457 07/27/2016 ([id number]) 33525 EST. PATIENT, LEVEL IV Diagnosis: Essential (primary) hypertension[ICD10: I10] Diagnosis: Chronic atrial fibrillation[ICD10: I48.2] Diagnosis: Localized edema[ICD10: R60.0] Karma Bahena MD [facility] CPT-4: 17654 06/23/2016 ([id number]) 38296 EST. PATIENT, LEVEL III Diagnosis: Localized edema[ICD10: R60.0] Karma Bahena MD [facility] CPT-4: 82563 06/09/2016 ([id number]) 23707 EST. PATIENT, LEVEL III Diagnosis: Irritable bowel syndrome without diarrhea[ICD10: K58.9] Diagnosis: Pruritus ani[ICD10: L29.0] Karma Bahena MD [facility] CPT-4: 32135 05/25/2016 ([id number]) 27765 EST. PATIENT, LEVEL III Diagnosis: Abdominal distension (gaseous)[ICD10: R14.0] Diagnosis: Encounter for screening mammogram for malignant neoplasm of breast[ICD10: Z12.31] Karma Bahena MD [facility] CPT-4: 41159 05/17/2016 ([id number]) 18458 EST. PATIENT, LEVEL IV Diagnosis: Essential (primary) hypertension[ICD10: I10] Diagnosis: First degree hemorrhoids[ICD10: K64.0] Diagnosis: Encounter for immunization[ICD10: Z23] Karma Bahena MD [facility] CPT-4: 51339 03/24/2016 ([id number]) 46559 EST. PATIENT, LEVEL III Diagnosis: Epidermal cyst[ICD10: L72.0] Diagnosis: Essential (primary) hypertension[ICD10: I10] Diagnosis: Chronic atrial fibrillation[ICD10: I48.2] Diagnosis: Other termite helper (current) drug therapy[ICD10: Z79.899] Karma Bahena MD [facility] CPT-4: 55597 02/02/2016 ([id number]) 80462 EST. PATIENT, LEVEL III Diagnosis: Acute anal fissure[ICD10: K60.0] Karma Bahena MD, [facility] CPT-4: 07496 2016 ([id number]) 87084 EST. PATIENT, LEVEL III Diagnosis: Allergic rhinitis due to pollen[ICD10: J30.1] Diagnosis: Acute upper respiratory infection, unspecified[ICD10: J06.9] Laura Bahena MD, [facility] CPT-4: 93085 12/21/2015 ([id number]) 13000 EST. PATIENT, LEVEL III Diagnosis: Essential (primary) hypertension[ICD10: I10] Diagnosis: Chronic atrial fibrillation[ICD10: I48.2] Karma Bahena MD, [facility] CPT-4: 63248 11/03/2015 ([id number]) Miscellaneous no charge Diagnosis: Impacted cerumen, right ear[ICD10: H61.21] Katharine Bahena MD, [facility] CPT-4: 18531 10/19/2015 27092 EST. PATIENT, LEVEL IV Diagnosis: Impacted cerumen, right ear[ICD10: H61.21] Diagnosis: Other allergic rhinitis[ICD10: J30.89] Katharine Bahena MD, [facility] CPT- 4: 79766 10/13/2015 ([id number]) 50670 EST. PATIENT, LEVEL IV Diagnosis: Essential (primary) hypertension[ICD10: I10] Diagnosis: Chronic atrial fibrillation[ICD10: I48.2] Diagnosis: Urge incontinence[ICD10: N39.41] Diagnosis: Age-related osteoporosis without current pathological fracture[ICD10: M81.0] Karma Bahena MD, [facility] CPT-4: 32429 09/29/2015 ([id number]) 30905 EST. PATIENT, LEVEL IV Diagnosis: Essential (primary) hypertension[ICD10: I10] Diagnosis: Chronic atrial fibrillation[ICD10: I48.2] Diagnosis: Irritable bowel syndrome without diarrhea[ICD10: K58.9] Diagnosis: Unspecified hemorrhoids[ICD10: K64.9] Karma Bahena MD, [facility] CPT-4: 82180 09/15/2015 ([id number]) 44425 EST. 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 PATIENT, LEVEL III Diagnosis: Hematuria, unspecified[ICD10: R31.9] Diagnosis: Other urethritis[ICD10: N34.2] Diagnosis: Other specified noninflammatory disorders of vagina[ICD10: N89.8] Karma Bahena MD, [facility] CPT-4: 33793 05/26/2015 30374 EST. PATIENT, LEVEL IV Diagnosis: Gout, unspecified[ICD10: M10.9] Karma Bahena MD, [facility] CPT-4: 95183 05/21/2015 ([id number]) 15394 EST. PATIENT, LEVEL IV Diagnosis: Chronic atrial fibrillation[ICD10: I48.2] Diagnosis: Irritable bowel syndrome without diarrhea[ICD10: K58.9] Diagnosis: Cystocele, unspecified[ICD10: N81.10] Diagnosis: Urge incontinence[ICD10: N39.41] Diagnosis: Fecal smearing[ICD10: R15.1] Diagnosis: Hypothyroidism, unspecified[ICD10: E03.9] Karma Bahena MD, [facility] CPT-4: 85873 05/07/2015 ([id number]) 85481 EST. PATIENT, LEVEL III Diagnosis: Atrial fibrillation[ICD9: 427.31] Diagnosis: Bloating[ICD9: 787.3] Karma Bahena MD, [facility] CPT-4: 88243 03/23/2015 ([id number]) 22761 EST. PATIENT, LEVEL IV Diagnosis: Abdominal pain[ICD9: 789.00] Diagnosis: Atrial fibrillation[ICD9: 427.31] Diagnosis: ENCNTR LONG-ANTICOAG USE[ICD9: V58.61] Karma Bahena MD, [facility] CPT-4: 30993 03/09/2015 ([id number]) 23193 EST. PATIENT, LEVEL IV Diagnosis: HEMATURIA NOS[ICD9: 599.70] Diagnosis: Atrial fibrillation[ICD9: 427.31] Diagnosis: HYPOTHYROIDISM[ICD9: 244.9] Karma Bahena MD, [facility] CPT-4: 20483 10/30/2014 ([id number]) 21549 EST. PATIENT, LEVEL IV Diagnosis: Atrial fibrillation[ICD9: 427.31] Diagnosis: ALLERGIC RHINITIS[ICD9: 477.9] Diagnosis: Need for pneumococcal vaccine[ICD9: V03.82] Diagnosis: Osteoarthritis[ICD9: 715.90] Diagnosis: Osteoporosis[ICD9: 733.00] Karma Bahena MD, [facility] CPT-4: 18477 07/11/2014 ([id number]) 50333 EST. PATIENT, LEVEL III Diagnosis: Urge incontinence[ICD9: 788.31] Diagnosis: Dysuria[ICD9: 788.1] Karma Bahena MD [facility] CPT-4: 13326 05/20/2014 ([id number]) 80743 EST. PATIENT, LEVEL IV Diagnosis: Atrial fibrillation[ICD9: 427.31] Diagnosis: Hematuria[ICD9: 599.70] Diagnosis: Dysuria[ICD9: 788.1] Diagnosis: ESSENTIAL HYPERTENSION[ICD9: 401.9] [facility] [place] CPT- 4: 49608 04/29/2014 ([id number]) 51433 EST. PATIENT, LEVEL IV Diagnosis: ESSENTIAL HYPERTENSION[ICD9: 401.9] Diagnosis: ALLERGIC RHINITIS[ICD9: 477.9] Karma Bahena MD [facility] [place] CPT-4: 39269 03/20/2014 ([id number]) 33973 EST. PATIENT, LEVEL IV Diagnosis: ESSENTIAL HYPERTENSION[ICD9: 401.9] Diagnosis: ATRIAL FIBRILLATION[ICD9: 427.31] Diagnosis: Irritable bowel[ICD9: 564.1] Karma Bahena MD, [facility] [place] CPT-4: 50460 03/05/2014 ([id number]) 66536 EST. PATIENT, LEVEL IV Diagnosis: Esophageal reflux[ICD9: 530.81] Diagnosis: DIARRHEA[ICD9: 787.91] Diagnosis: ABDOM PAIN NOS SITE[ICD9: 789.00] Karma Bahena MD, [facility] [place] CPT- 4: 45912 01/29/2014 ([id number]) 89137 EST. PATIENT, LEVEL III Diagnosis: Irritable bowel[ICD9: 564.1] Diagnosis: DIARRHEA[ICD9: 787.91] Laura Bahena MD [facility] [place] CPT-4: 84788 01/14/2014 ([id number]) 27684 EST. PATIENT, LEVEL IV Diagnosis: ESSENTIAL HYPERTENSION[ICD9: 401.9] Diagnosis: ATRIAL FIBRILLATION[ICD9: 427.31] Diagnosis: URGE INCONTINENCE[ICD9: 788.31] Diagnosis: MALAISE AND FATIGUE[ICD9: 780.79] Diagnosis: Dyspnea[ICD9: 786.09] Karma Bahena MD [facility] [place] CPT-4: 87118 12/25/2013 ([id number]) 72129 EST. PATIENT, LEVEL IV Diagnosis: ESSENTIAL HYPERTENSION[SNOMED: 00910036] Diagnosis: ATRIAL FIBRILLATION[ICD9: 427.31] Diagnosis: Abdominal pain[ICD9: 789.00] Diagnosis: ESOPHAGEAL REFLUX[ICD9: 530.81] Karma Bahena MD [facility] [place] CPT-4: 79663 11/27/2013 ([id number]) 78412 EST. PATIENT, LEVEL IV Diagnosis: ESSENTIAL HYPERTENSION[SNOMED: 04932555] Diagnosis: ATRIAL FIBRILLATION[ICD9: 427.31] Diagnosis: Chronic osteoarthritis[ICD9: 715.90] Karma Bahena MD [facility] [place] CPT- 4: 81914 09/12/2013 ([id number]) 88098 EST. PATIENT, LEVEL III Diagnosis: ESSENTIAL HYPERTENSION[SNOMED: 96710853] Diagnosis: Bruising[ICD9: 924.9] Diagnosis: ENCNTR LONG-RX USE NEC[ICD9: V58.69] Karma Bahena MD, [facility] [place] CPT- 4: 31535 08/15/2013 ([id number]) 63934 EST. PATIENT, LEVEL IV Diagnosis: ESSENTIAL HYPERTENSION[SNOMED: 37453504] Diagnosis: Hematuria[ICD9: 599.70] Diagnosis: Dysuria[ICD9: 788.1] Karma Bahena MD [facility] [place] CPT-4: 26477 08/01/2013 ([id number]) 94409 EST. PATIENT, LEVEL III Diagnosis: UTI[ICD9: 599.0] Diagnosis: Hematuria[ICD9: 599.70] Laura Bahena MD [facility] [place] CPT-4: 79346 07/01/2013 ([id number]) 66213 EST. PATIENT, LEVEL III Diagnosis: ATRIAL FIBRILLATION[ICD9: 427.31] Diagnosis: ESSENTIAL HYPERTENSION[SNOMED: 79130482] Karma Bahena MD [facility] [place] CPT-4: 56190 05/29/2013 ([id number]) 44181 EST. PATIENT, LEVEL IV Diagnosis: Atrial fibrillation[ICD9: 427.31] Diagnosis: Encounter for monitoring digoxin therapy[ICD9: V58.83] Diagnosis: ESSENTIAL HYPERTENSION[SNOMED: 28127880] Karma Bahena MD [facility] [place] CPT-4: 33055 05/15/2013 ([id number]) 23214 EST. PATIENT, LEVEL IV Diagnosis: ESSENTIAL HYPERTENSION[SNOMED: 47658638] Diagnosis: ATRIAL FIBRILLATION[ICD9: 427.31] Diagnosis: PALPITATIONS[ICD9: 785.1] Diagnosis: Dizziness and giddiness[ICD9: 780.4] Karma Bahena MD [facility] [place] CPT- 4: 37308 04/23/2013 ([id number]) 23116 EST. PATIENT, LEVEL III Diagnosis: OTHER CONSTIPATION[ICD9: 564.09] Diagnosis: ABDOM PAIN NOS SITE[ICD9: 789.00] Laura Bahena MD [facility] [place] CPT- 4: 88436 03/21/2013 ([id number]) 91978 EST. PATIENT, LEVEL IV Diagnosis: ESSENTIAL HYPERTENSION[SNOMED: 14010861] Diagnosis: Atrial fibrillation[ICD9: 427.31] Karma Bahena MD [facility] [place] CPT- 4: 85980 01/16/2013 ([id number]) Miscellaneous no charge Diagnosis: CELLULITIS OF HAND[ICD9: 682.4] Karma Bahena MD [facility] [place] CPT-4: 70545 12/19/2012 ([id number]) Miscellaneous no charge Diagnosis: ENCOUNTER FOR THERAPEUTIC DRUG MONITORING[ICD9: V58.83] Diagnosis: CELLULITIS OF HAND[ICD9: 682.4] Karma Bahena MD [facility] [place] CPT-4: 76737 12/14/2012 Miscellaneous no charge Diagnosis: CELLULITIS OF HAND[ICD9: 682.4] Karma Bahena MD [facility] [place] CPT-4: 98243 12/12/2012 [id number] EST. PATIENT, LEVEL II Diagnosis: CELLULITIS OF HAND[ICD9: 682.4] Diagnosis: ENCNTR LONG-RX USE NEC[ICD9: V58.69] Diagnosis: LONG-TERM USE ANTICOAGUL[ICD9: V58.61] Karma Bahena MD [facility] [place] CPT-4: 64379 12/11/2012 ([id number]) 32932 EST. PATIENT, LEVEL III Diagnosis: CELLULITIS OF HAND[ICD9: 682.4] Karma Bahena MD [facility] [place] CPT-4: 71092 12/10/2012 ([id number]) 87958 EST. PATIENT, LEVEL IV Diagnosis: Elevated digoxin level[ICD9: 796.0] Diagnosis: ATRIAL FIBRILLATION[ICD9: 427.31] Diagnosis: Inflammatory arthritis[ICD9: 714.9] Karma Bahena MD [facility] [place] CPT- 4: 16462 10/30/2012 ([id number]) 10303 EST. PATIENT, LEVEL IV Diagnosis: Atrial fibrillation[ICD9: 427.31] Diagnosis: Anticoagulant long-term use[ICD9: V58.61] Diagnosis: ESSENTIAL HYPERTENSION[SNOMED: 30449041] Karma Bahena MD [facility] [place] CPT-4: 60272 08/08/2012 ([id number]) 45057 EST. PATIENT, LEVEL IV Diagnosis: ABDOM PAIN NOS SITE[ICD9: 789.00] Diagnosis: Constipation - functional[ICD9: 564.09] Diagnosis: EDEMA[ICD9: 782.3] Diagnosis: ATRIAL FIBRILLATION[ICD9: 427.31] Karma Bahena MD [facility] [place] CPT- 4: 09504 07/11/2012 ([id number]) 71103 EST. PATIENT, LEVEL III Diagnosis: Cystocele[ICD9: 618.01] Diagnosis: Rectocele[ICD9: 618.04] Karma Bahena MD [facility] [place] CPT-4: 69117 05/08/2012 ([id number]) 57749 EST. 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 PATIENT, LEVEL IV Diagnosis: ATRIAL FIBRILLATION[ICD9: 427.31] Diagnosis: URGE INCONTINENCE[ICD9: 788.31] Diagnosis: MALAISE AND FATIGUE[ICD9: 780.79] Diagnosis: Dyspnea[ICD9: 786.09] Karma Bahena MD, [facility] [place] CPT-4: 45026 02/20/2012 [id number] EST. PATIENT, LEVEL IV Diagnosis: Hematuria[ICD9: 599.70] Diagnosis: Vaginal yeast infection[ICD9: 112.1] Diagnosis: ATRIAL FIBRILLATION[ICD9: 427.31] Laura Bahena MD, [facility] [place] CPT- 4: 40895 02/13/2012 ([id number]) 15021 EST. PATIENT, LEVEL IV Diagnosis: Atrial fibrillation[ICD9: 427.31] Diagnosis: Anticoagulation goal of INR 2 to 3[ICD9: V58.83] Diagnosis: Urinary incontinence, urge[ICD9: 788.31] Diagnosis: ESSENTIAL HYPERTENSION[SNOMED: 38881438] [facility] CPT-4: 73971 02/01/2012 ([id number]) 65421 EST. PATIENT, LEVEL IV Diagnosis: Atrial fibrillation[ICD9: 427.31] Diagnosis: Anticoagulant long-term use[ICD9: V58.61] Diagnosis: ESSENTIAL HYPERTENSION[SNOMED: 42255023] Karma Bahena MD, [facility] [place] CPT-4: 26310 2012 98171 EST. PATIENT, LEVEL IV Diagnosis: UTI[ICD9: 599.0] Diagnosis: ESSENTIAL HYPERTENSION[SNOMED: 33058520] Diagnosis: MALAISE AND FATIGUE[ICD9: 780.79] Diagnosis: Esophageal reflux[ICD9: 530.81] Karma Bahena MD, [facility] [place] CPT-4: 21557 12/01/2011 ([id number]) 07076 EST. PATIENT, LEVEL IV Diagnosis: UTI (urinary tract infection)[ICD9: 599.0] Diagnosis: ESSENTIAL HYPERTENSION[SNOMED: 63024163] Diagnosis: URGE INCONTINENCE[ICD9: 788.31] Karma Bahena MD, [facility] [place] CPT-4: 36726 11/23/2011 ([id number]) 65220 EST. PATIENT, LEVEL IV Diagnosis: ESSENTIAL HYPERTENSION[SNOMED: 79048431] Diagnosis: IMPACTED CERUMEN[ICD9: 380.4] Diagnosis: MALAISE AND FATIGUE[ICD9: 780.79] Diagnosis: EDEMA[ICD9: 782.3] Karma Bahena MD, [facility] [place] CPT-4: 40377 10/03/2011 [id number] EST. PATIENT, LEVEL IV Diagnosis: ESSENTIAL HYPERTENSION[SNOMED: 12158242] Diagnosis: Generalized osteoarthritis[ICD9: 715.09] Diagnosis: OSTEOPOROSIS[ICD9: 733.00] Karma Bahena MD, [facility] [place] CPT-4: 99092 08/08/2011 77131 EST. PATIENT, LEVEL IV Diagnosis: Muscle cramp[ICD9: 729.82] Diagnosis: Torticollis[ICD9: 723.5] Diagnosis: Rash[ICD9: 782.1] Karma Bahena MD, [facility] [place] CPT-4: 95469 05/09/2011 43767 EST. PATIENT, LEVEL IV Diagnosis: Leg cramps, sleep related[ICD9: 327.52] Diagnosis: Underweight[ICD9: 783.22] Karma Bahena MD, [facility] [place] CPT-4: 84804 03/29/2011 83580 EST. PATIENT, LEVEL IV Diagnosis: UTI[ICD9: 599.0] Diagnosis: Urge incontinence[ICD9: 788.31] Diagnosis: Loss of weight[ICD9: 783.21] Diagnosis: Palpitations[ICD9: 785.1] Diagnosis: Peripheral neuropathy, idiopathic[ICD9: 356.9] Karma Bahena MD, [facility] [place] CPT-4: 58566 03/15/2011 Plan of Care Planned Activity Notes Codes Status Date Visit Plan: Afib- rate uncontrolled- called Dr Rock's office and he recommends she go to ER to be evaluated -discussed with Dr Bahena will check labs first and see if we can adjust medications -discussed ER for worsening symptoms (shortness of breath, chest pain, etc). Patient verbalized understanding of plan. Cough -suspect due to uncontrolled afib -continue to monitor 12/06/2018 Appointment: Laura Colin WPtel: [address] [place], [place] [phone] (15 min) Moderate 12/06/2018 Patient Education: Patient Medication Summary Completed 12/06/2018 Visit Plan: Pharyngitis-Discussed natural and expected course of this diagnosis and need to alert me if symptoms do not follow expected course, or if any worse. Recommended salt water gargles as needed for pain. Ty lenol/motrin as needed for fever/discomfort. 11/30/2018 Appointment: Laura Colin WPtel: [address] [place], [place] [phone] (30 min) Complex 11/30/2018 Patient Education: Patient Medication Summary Completed 11/30/2018 Appointment: Karma Bahena WPtel: [address] [place], [place] [id number] (15 min) Moderate 11/14/2018 Visit Plan: Hypothyroidism - pt with chronic hypothyroidism, continue with current medication, will monitor pt to signs or symptoms of lack of adequate supplementation. Pt is to continue with current dose of medication unless directed otherwise. Check labs at regular intervals q 3 months or q 6 months based on previous levels of control. Hypertension - well controlled - continue with current medications, continue with no added salt diet. Pt has been encouraged to exercise daily. The pt has been advised to call the office if there are any acute concerns about change in blood pressure readings at home. Atrial Fibrillation - pt on chronic anticoagulation and is currently rate controlled. The pt is to have labs done as appropriate to monitor medication levels and is to report if they start to feel as if their heart rate is becoming uncontrolled. 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 continue with amlodipine. 10/09/2018 Appointment: Karma Bahena WPtel: [phone] [facility] (15 min) Moderate 10/09/2018 Patient Education: Patient Medication Summary Completed 10/09/2018 Appointment: Karma Bahena WPtel: [phone] [facility] (15 min) Moderate 10/01/2018 Visit Plan: URI - Pt advised to increase fluids, vitamin C. Discussed natural and expected course of this diagnosis and need to alert me if symptoms do not follow expected course, or if any worse. RX sent to patient's pharmacy. Allergies - chronic - recommended pt to use allergy medication as prescribed. Pt has been counseled as to the appropriate use of the medication. Pt to call if allergy symptoms are not controlled with the medication. If using nasal spray, instructions as follows: Nasal spray- use twice daily, one spray per nostril twice daily, after 30 minutes, rinse out nose with saline spray.. Use opposite hand per nostril to spray in the nasal steroid allergy spray. Raynauds - increase amlodipine to a full pill and notify clinic with any changes, questions, or concerns. 09/12/2018 Appointment: Katharine Dai WPtel: [phone] [facility] [place] (15 min) Moderate 09/12/2018 Patient Education: Patient Medication Summary Completed 09/12/2018 Appointment: Karma Bahena WPtel: [phone] [facility] [place] (15 min) Moderate 08/16/2018 Visit Plan: I have called Dr. Rock about blood flow to extremities - decreased pedal pulses, non-healing dry scab on tip of right great toe with pain in toe, he has advised for the pt to come to his office for Ros[facility] to do lower extremity blood flow. They will call her to get her in for an appt next week. Atrial Fibrillation - pt on chronic anticoagulation and is currently rate controlled. The pt is to have labs done as appropriate to monitor medication levels and is to report if they start to feel as if her heart rate is becoming uncontrolled. Raynaud syndrome - discussed treatment options with the patient - continue with amlodipine 5mg 1/2 pill daily - keep heat on fingers - and toes - discussed need to keep hands warm during the winter, and nitro on fingers/toes. Sebaceous cyst of vaginal tissue - advised pt that this is not cancerous and she needs to let me know if it enlarges greatly as it would need to be surgically removed. 08/14/2018 Appointment: [facility] (15 min) Moderate 08/14/2018 Patient Education: Patient Medication Summary Completed 08/14/2018 Visit Plan: Atrial Fibrillation - pt on chronic anticoagulation and is currently rate controlled. The pt is to have labs done as appropriate to monitor medication levels and is to report if they start to feel as if their heart rate is becoming uncontrolled. Raynaud syndrome - discussed treatment options with the patient - need to start on amlodipine 5mg 1/2 pill daily - keep heat on fingers - and toes - discussed need to keep hands warm during the winter. Sebaceous cyst of vaginal tissue - advised pt that this is not cancerous and she needs to let me know if it enlarges greatly as it would need to be surgically removed. 07/26/2018 Appointment: Kar[facility] Bahena [facility]el[facility] [phone] [facility] (15 min) Moderate 07/26/2018 Patient Education: Patient Medication Summary Completed 07/26/2018 Patient Education: Patient Medication Summary Completed 06/08/2018 Visit Plan: Hypertension - well controlled - continue with current medications, continue with no added salt diet. Pt has been encouraged to exercise daily. The pt has been advised to call the office if there are any acute concerns about change in blood pressure readings at home. Hypothyroidism - pt with chronic hypothyroidism, continue with current medication, will monitor pt to signs or symptoms of lack of adequate supplementation. Pt is to continue with current dose of medication unless directed otherwise. Check labs at regular intervals q 3 months or q 6 months based on previous levels of control. Esophage al Reflux - the patient has been counseled against excessive intake of caffeine, spicy foods, peppermint, and cinnamon - all of which can exacerbate esophageal reflux. The patient is to take medications as prescribed and call the office if the symptoms are not improving. 06/04/2018 Appointment: Karma Bahena WPtel: [phone] [facility] (15 min) Moderate 06/04/2018 Patient Education: Patient Medication Summary Completed 06/04/2018 Appointment: Karma Bahena WPtel: [phone] [facility] (15 min) Moderate 03/14/2018 Visit Plan: Hypertension - well controlled - continue with current medications, continue with no added salt diet. Pt has been encouraged to exercise daily. The pt has been advised to call the office if there are any acute concerns about change in blood pressure readings at home. Atrial Fibrillation - pt on chronic anticoagulation and is currently rate controlled. The pt is to have labs done as appropriate to monitor medication levels and is to report if they start to feel as if their heart rate is becoming uncontrolled. Hypothyroidism - pt with chronic hypothyroidism, continue with current medication, will monitor pt to signs or symptoms of lack of adequate supplementation. Pt is to continue with current dose of medication unless directed otherwise. Check labs at regular intervals wither q 3 months or q 6 m [facility] based on previous levels of control. 01/31/2018 Appointment: Katharine Dai WPtel: [phone] [facility] [facility] - Annual Wellness Visit 01/31/2018 Patient Education: Patient Medication Summary Completed 01/31/2018 Visit Plan: Medicare Exam - today we discussed the patients past history, immunizations, preventative exams/evaluations - colonoscopy, fecal occult blood testing, routine labs for renal function, glucose, cholesterol, osteoporosis evaluations, cardiovascular testing and cancer screenings. We have also discussed mental health and the signs/symptoms of depression. The patient was advised of home safety evaluations and the need to make sure that as the aging process continues, we need to be aware of different ways to make the home a safer place to reside. The patient has also been counseled that exercise is necessary - and of utmost importance as we age to help decrease fall risk and to maintain independece in the home. Today we discussed the need for the patient to create paperwork for Advanced directives as well as for the patient to provide this office with a copy of her DOPA paperwork for health care surrogate. 01/17/2018 Patient Education: Patient Medication Summary Completed 01/17/2018 Visit Plan: Hypertension - well controlled - continue with current medications, continue with no added salt diet. Pt has been encouraged to exercise daily. The pt has been advised to call the office if there are any acute concerns about change in blood pressure readings at home. Atrial Fibrillation - pt on chronic anticoagulation and is currently rate controlled. The pt is to have labs done as appropriate to monitor medication levels and is to report if they start to feel as if their heart rate is becoming uncontrolled. Hypothyroidism - pt with chronic hypothyroidism, continue with current medication, will monitor pt to signs or symptoms of lack of adequate supplementation. Pt is to continue with current dose of medication unless directed otherwise. Check labs at regular intervals wither q 3 months or q 6 mon ths based on previous levels of control. Cough/URI symptoms - Nasal spray- use twice daily, one spray per nostril twice daily, after 30 minutes, rinse out nose with saline spray.. Use opposite hand per nostril to spray in the nasal steroid allergy spray. 12/14/2017 Appointment: Karma Bahena WPtel: [facility] (15 min) Moderate 12/14/2017 Patient Education: Patient Medication Summary Completed 12/14/2017 Visit Plan: Allergies - chronic - recommended pt to use allergy medication as prescribed. Pt has been counseled as to the appropriate use of the medication. Pt to call if allergy symptoms are not controlled with the medication. If using nasal spray, instructions as follows: Nasal spray- use twice daily, one spray per nostril twice daily, after 30 minutes, rinse out nose with saline spray.. Use opposite hand per nostril to spray in the nasal steroid allergy spray. 12/07/2017 Appointment: Katharine Dai WPtel: [facility] (15 min) Moderate 12/07/2017 Patient Education: Patient Medication Summary Completed 12/07/2017 Visit Plan: Hypertension - well controlled - continue with current medications, continue with no added salt diet. Pt has been encouraged to exercise daily. The pt has been advised to call the office if there are any acute concerns about change in blood pressure readings at home. Atrial Fibrillation - pt on chronic anticoagulation and is currently rate controlled. The pt is to have labs done as appropriate to monitor medication levels and is to report if they start to feel as if their heart rate is becoming uncontrolled. Hypothyroidism - pt with chronic hypothyroidism, continue with current medication, will monitor pt to signs or symptoms of lack of adequate supplementation. Pt is to continue with current dose of medication unless directed otherwise. Check labs at regular intervals wither q 3 months or q [address] based on previous levels of control. 11/14/2017 Appointment: Karma Bahena WPtel: [facility] (15 min) Moderate 11/14/2017 Patient Education: Patient Medication Summary Completed 11/14/2017 Visit Plan: Hypertension - well controlled - continue with current medications, continue with no added salt diet. Pt has been encouraged to exercise daily. The pt has been advised to call the office if there are any acute concerns about change in blood pressure readings at home. Edema - pt has been advised to elevate legs to prevent dependent edema, compression has been recommended to help to naturally decrease peripheral edema. Diuretic use has been discussed and pt has been instructed in appropriate use of such medication as necessary to further attempt to reduce peripheral edema. Osteoporosis - prolia - scheduled for April 11 - order needs sent. Need for flu shot - pt has been given high dose flu shot today. 03/27/2017 Appointment: Karma Bahena WPtel: [facility] (15 min) Moderate 03/27/2017 Patient Education: Patient Medication Summary Completed 03/27/2017 Referral: Dr Jeff Referral Completed 01/31/2017 Visit Plan: Medicare Exam - today we discussed the patients past history, immunizations, preventative exams/evaluations - colonoscopy, fecal occult blood testing, routine labs for renal function, glucose, cholesterol, osteoporosis evaluations, cardiovascular testing and cancer screenings. We have also discussed mental health and the signs/symptoms of depression. The patient was advised of home safety evaluations and the need to make sure that as the aging process continues, we need to be aware of different ways to make the home a safer place to reside. The patient has also been counseled that exercise is necessary - and of utmost importance as we age to help decrease fall risk and to maintain independence in the home. Today we discussed the need for the patient to create paperwork for Advanced directives as well as for the patient to provide this office with a copy of her DOPA paperwork for health care surrogate. 01/23/2017 Appointment: Katharine Dai WPtel: [phone] [facility] [facility] - Annual Wellness Visit 01/23/2017 Patient Education: Patient Medication Summary Completed 01/23/2017 Visit Plan: Hypertension - well controlled - continue with current medications, continue with no added salt diet. Pt has been encouraged to exercise daily. The pt has been advised to call the office if there are any acute concerns about change in blood pressure readings at home. Hoarseness of voice - recommended a referral to dr. santy poon. Atrial Fibrillation - pt on chronic anticoagulation and is currently rate controlled. The pt is to have labs done as appropriate to monitor medication levels and is to report if they start to feel as if their heart rate is becoming uncontrolled. 01/19/2017 Appointment: Karma Bahena WPtel: [address] [place], [place] [id number] (15 min) Moderate 01/19/2017 Patient Education: Patient Medication Summary Completed 01/19/2017 Care Plan: Referral Order SNOMED-CT : [id number] Pending 01/19/2017 Appointment: Karma Bahena WPtel[facility] (15 min) Moderate 01/04/2017 Appointment: Karma Bahena WPtel: [facility] (15 min) Moderate 12/28/2016 Visit Plan: [id number] zpack-call if symptoms do not resolve or if any worse. Patient verbalized understanding of plan. 11/29/2016 Appointment: Laura Colin WPtel: [address] [place], [place] [id number] (15 min) Moderate 11/29/2016 Patient Education: Patient Medication Summary Completed 11/29/2016 Visit Plan: Allergies - chronic - recommended pt to use allergy medication as prescribed. Pt has been counseled as to the appropriate use of the medication. Pt to call if allergy symptoms are not controlled with the medication. If using nasal spray, instructions as follows: Nasal spray- use twice daily, one spray per nostril twice daily, after 30 minutes, rinse out nose with saline spray.. Use opposite hand per nostril to spray in the nasal steroid allergy spray. URI - Pt advised to increase fluids, vitamin C. Discussed natural and expected course of this diagnosis and need to alert me if symptoms do not follow expected course, or if any worse. RX sent to patient's pharmacy. 11/23/2016 Appointment: Katharine Dai WPtel: [facility]5 [facility] (15 min) Moderate 11/23/2016 Patient Education: Patient Medication Summary Completed 11/23/2016 Visit Plan: Pharyngitis-Discussed natural and expected course of this diagnosis and need to alert me if symptoms do not follow expected course, or if any worse. Recommended salt water gargles as needed for pain. Ty lenol/motrin as needed for fever/discomfort. 11/21/2016 Appointment: Laura Colin WPtel: [facility]5 [phone] (15 min) Moderate 11/21/2016 Patient Education: Patient Medication Summary Completed 11/21/2016 Appointment: Nurse Visit 11/17/2016 Patient Education: Patient Medication Summary Completed 11/17/2016 Patient Education: Patient Medication Summary Completed 11/14/2016 Patient Education: Patient Medication Summary Completed 11/11/2016 Appointment: Nurse Visit 11/10/2016 Patient Education: Patient Medication Summary Completed 11/10/2016 Visit Plan: Wound care - continue with dressing changes, daily use of bactroban - monitor symptoms. 11/08/2016 Appointment: Karma Bahena [facility]Ptel: [phone] [facility] [place] (10 min) Simple 11/08/2016 Patient Education: Patient Medication Summary Completed 11/08/2016 Visit Plan: Hypothyroidism - pt with chronic hypothyroidism, continue with current medication, will monitor pt to signs or symptoms of lack of adequate supplementation. Pt is to continue with current dose of medication unless directed otherwise. Check labs at regular intervals wither q 3 months or q 6 months based on previous levels of control. Atrial Fibrillation - pt on chronic anticoagulation and is currently rate controlled. The pt is to have labs done as appropriate to monitor medication levels and is to report if they start to feel as if their heart rate is becoming uncontrolled. Laceration of arm - hea ling - continue with supportive care, bactroban, etc. 11/02/2016 Appointment: Karma Bahena [facility]Ptel[phone] [place] (15 min) Moderate 11/02/2016 Appointment: Nurse Visit 11/02/2016 Patient Education: Patient Medication Summary Completed 11/02/2016 Appointment: Nurse Visit 10/31/2016 Visit Plan: Laceration-right forearm- Pt was instructed to keep the wound clean, cleanse with sterile saline, use bactroban ointment, call if redness, pustular drainage, or any other acute concerns. Follow up Monday for dressing changes. 10/27/2016 Appointment: Laura Colin WPtel: [phone] [place] (30 min) Complex 10/27/2016 Patient Education: Patient Medication Summary Completed 10/27/2016 Visit Plan: Hypertension - well controlled - continue with current medications, continue with no added salt diet. Pt has been encouraged to exercise daily. The pt has been advised to call the office if there are any acute concerns about change in blood pressure readings at home. Hoarseness- recommended pt to wait to have eval by Dr. Jeff until pt is seen by Dr. Samantha Allen - symptoms stable - continue current meds - no change in symptoms. 08/31/2016 Appointment: Karma Bahena WPtel: [facility] (15 min) Moderate 08/31/2016 Patient Education: Patient Medication Summary Completed 08/31/2016 Visit Plan: diflucan 150mg daily x 7 days - this is to treat a potential yeast infection in your throat from the symbicort. sometimes the steroid in the symbicort causes overgrowth of yeast - it is not common to see it in the throat at the vocal cords but can happen. if you notice that your voice is significantly better, call the office to let me know. if it is not better, then please call the office in one week and let me know so that we can refer you to Dr. Jeff for an ENT evaluation. stop the lasix on a scheduled basis and only take if you have significant swelling that the spironolactone is not helping. st op potassium chloride start spironolactone 25mg daily and let me know if this helps with your swelling. 07/27/2016 Appointment: Karma Bahena WPtel: [facility] (15 min) Moderate 07/27/2016 Patient Education: Patient Medication Summary Completed 07/27/2016 Patient Education: Hypertension Completed 07/27/2016 Visit Plan: Hypertension - well controlled - continue with current medications, continue with no added salt diet. Pt has been encouraged to exercise daily. The pt has been advised to call the office if there are any acute concerns about change in blood pressure readings at home. Atrial Fibrillation - pt on chronic anticoagulation and is currently rate controlled. The pt is to have labs done as appropriate to monitor medication levels and is to report if they start to feel as if their heart rate is becoming uncontrolled. Edema - continue with compression and prn use of lasix 06/23/2016 Appointment: Karma Bahena WPtel: [facility] (15 min) Moderate 06/23/2016 Patient Education: Patient Medication Summary Completed 06/23/2016 Patient Education: Hypertension Completed 06/23/2016 Visit Plan: Edema - with Dyspnea - RX for laxis and compression socks - pt to call if not improving. 06/09/2016 Appointment: Karma Bahena WPtel: [facility] (15 min) Moderate 06/09/2016 Patient Education: Patient Medication Summary Completed 06/09/2016 Visit Plan: Abdominal pain and rectal itching - recommended pt to use betamethasone on vaginal/rectal region, monitor symptoms call if not improving. Continue with beano and simethicone 05/25/2016 Appointment: Karma Bahena [facility]Ptel[phone] (15 min) Moderate 05/25/2016 Patient Education: Patient Medication Summary Completed 05/25/2016 Care Plan: SCREENINGMAMMOGRAPHYDIGITAL LOINC : 17194-7 Pending 05/20/2016 Visit Plan: Abdominal distension - use simethicone four times daily - after meals - if it does not help - in the next two weeks - call the office and we will do a ct scan of the abdomen and pelvis 05/17/2016 Appointment: Karma Bahena WPtel: [phone] [facility] (15 min) Moderate 05/17/2016 Patient Education: Patient Medication Summary Completed 05/17/2016 Visit Plan: Hypertension - well controlled - continue with current medications, continue with no added salt diet. Pt has been encouraged to exercise daily. The pt has been advised to call the office if there are any acute concerns about change in blood pressure readings at home. flu shot today Hemorrhoids - continue with rx for prn steroid ointment 03/24/2016 Appointment: Kamra Bahena WPtel: [phone] (30 min) Complex 03/24/2016 Patient Education: Patient Medication Summary Completed 03/24/2016 Patient Education: Hypertension Completed 03/24/2016 Visit Plan: Cyst - epidermal cyst - pt to continue to use prn betamethasone on rectum for discomfort. HTN - and Afib - controlled/stable - no change in current mangement - pt to call if she notices her blood pressure or heart rate becoming uncontrolled. 02/02/2016 Patient Education: Patient Medication Summary Completed 02/02/2016 Visit Plan: boil ease or recticare - if having acute or worsening discomfort - call doctor - may need an antibiotic. MUCINEX 600mg twice daily for decrease in mucus in throat 2016 Patient Education: Patient Medication Summary Completed 2016 Visit Plan: URI/ALLERGIES- recommended pt to use allergy medication as prescribed. Pt has been counseled as to the appropriate use of the medication. Pt to call if allergy symptoms are not controlled with the medic ation. If using nasal spray, instructions as follows: Nasal spray- use twice daily, one spray per nostril twice daily, after 30 minutes, rinse out nose with saline spray.. Use opposite hand per nostril to spray in the nasal steroid allergy spray. 12/21/2015 Appointment: Laura Colin WPtel: [phone] [phone] (30 min) Complex 12/21/2015 Patient Education: Patient Medication Summary Completed 12/21/2015 Visit Plan: Hypertension - well controlled - continue with current medications, continue with no added salt diet. Pt has been encouraged to exercise daily. The pt has been advised to call the office if there are any acute concerns about change in blood pressure readings at home. Atrial Fibrillation - pt on chronic anticoagulation and is currently rate controlled. The pt is to have labs done as appropriate to monitor medication levels and is to report if they start to feel as if their heart rate is becoming uncontrolled. 11/03/2015 Appointment: Karma Bahena WPtel: [phone] [facility] (15 min) Moderate 11/03/2015 Patient Education: Patient Medication Summary Completed 11/03/2015 Visit Plan: Cerumen Impaction - The impacted cerumen was removed with the use of the ear currette. The patient tolerated the procedure without incident and had improvement in hearing. The wax was removed by the practitioner due to the wax being more complicated to remove, and staff was needed to assist the removal of the wax by holding the ear, and keeping patient stabilized during the removal process. 10/19/2015 Appointment: (15 min) Moderate 10/19/2015 Patient Education: Patient Medication Summary Completed 10/19/2015 Visit Plan: Cerumen impaction - cerumen is hard and dry - will have pt use sweet oil drops and return to clinic for assistance with removing cerumen. Pt is to notify clinic if symptoms do not improve, or with any c oncerns. Allergies - chronic - recommended pt to use allergy medication as prescribed. Pt has been counseled as to the appropriate use of the medication. Pt to call if allergy symptoms are not controlled with the medication. If using nasal spray, instructions as follows: Nasal spray- use twice daily, one spray per nostril twice daily, after 30 minutes, rinse out nose with saline spray.. Use opposite hand per nostril to spray in the nasal steroid allergy spray. 10/13/2015 Appointment: (15 min) Moderate 10/13/2015 Patient Education: Patient Medication Summary Completed 10/13/2015 Visit Plan: Hypertension - well controlled - continue with current medications, continue with no added salt diet. Pt has been encouraged to exercise daily. The pt has been advised to call the office if there are any acute concerns about change in blood pressure readings at home. Osteoporosis - prolia shot to be scheduled JANET Afib - rate controlled Urge Incontinence - recommended pt to start on Kegel exercises and if not improving will consult Dr. Collins. 09/29/2015 Patient Education: Patient Medication Summary Completed 09/29/2015 Patient Education: Hypertension Completed 09/29/2015 Visit Plan: Hypertension - uncontrolled - the patient's medications have been modified as documented in the visit note. The patient has been counseled to cut back on salt in diet for a no added salt diet, low fat diet, start an exercise program with low weight bearing exercises and higher aerobic activity for heart health. The patient is to check blood pressure readings as an outpatient and either fax, call, or email the readings to the office next week for practitioner to review. The pt is to call for acute concerns. Atrial Fibrillation - pt on chronic anticoagulation and is currently rate controlled. The pt is to have labs done as appropriate to monitor medication levels and is to report if they start to feel as if their heart rate is becoming uncontrolled. Hemorrhoid - recommended pt to use betamethasone ointment on rectal tissue 09/15/2015 Patient Education: Patient Medication Summary Completed 09/15/2015 Patient Education: Hypertension Completed 09/15/2015 Visit Plan: Atrial Fibrillation - pt on chronic anticoagulation and is currently rate controlled. The pt is to have labs done as appropriate to monitor medication levels and is to report if they start to feel as if their heart rate is becoming uncontrolled. Hypertension - well controlled - continue with current medications, continue with no added salt diet. Pt has been encouraged to exercise daily. The pt has been advised to call the office if there are any acute concerns about change in blood pressure readings at home. Hypothyroidism - pt with chronic hypothyroidism, continue with current medication, will monitor pt to signs or symptoms of lack of adequate supplementation. Pt is to continue with current dose of medication unless directed otherwise. Check labs at regular intervals wither q 3 months or q 6 mon ths based on previous levels of control. Left renal cancer-recently had left kidney and ureter removed in [place]-doing well 09/01/2015 Appointment: (30 min) Complex 09/01/2015 Patient Education: Patient Medication Summary Completed 09/01/2015 Patient Education: Hypertension Completed 09/01/2015 Appointment: Karma Bahena WPtel: [address] [place] [id number] (15 min) Moderate 07/13/2015 Visit Plan: Hematuria/Urethritis - Pt uses Premarin for vaginal dryness, but has not been using it recently. Pt is also on Coumadin for A. Fib. Antibiotic electronically prescribed to pt's pharmacy of choice. Use Premarin as directed to prevent vaginal dryness and irritation. Will check CBC and PT INR. Pt to call if symptoms do not improve. 05/26/2015 Patient Education: Patient Medication Summary Completed 05/26/2015 Visit Plan: Gout Attack - Pt complains of acute pain in the right great toe that started 3-4 days ago. Pt given RX for uric Acid Level. Pt states symptoms are improving. Pt to call if symptoms do not improve, and pt to be given results of labs when available. Skin lesion - will monitor for change in size, color, consistency, recheck at follow up appointment. 05/21/2015 Patient Education: Patient Medication Summary Completed 05/21/2015 Appointment: Injection 05/13/2015 Patient Education: Patient Medication Summary Completed 05/13/2015 Patient Education: Hypertension Completed 05/13/2015 Care Plan: Referral Order SNOMED-CT : [id number] Ordered 05/08/2015 Visit Plan: Atrial Fibrillation - pt on chronic anticoagulation and is currently rate controlled. The pt is to have labs done as appropriate to monitor medication levels and is to report if they start to feel as if their heart rate is becoming uncontrolled. Hypothyroidism - pt with chronic hypothyroidism, continue with current medication, will monitor pt to signs or symptoms of lack of adequate supplementation. Pt is to continue with current dose of medication unless directed otherwise. Check labs at regular intervals wither q 3 months or q 6 months based on previous levels of control. Decrease synthroid dose to 1/2 pill two days a week and a full pill on other days. Urge incontinence - with cystocele - and fecal symptoms - referral to Dr. Collins. 05/07/2015 Appointment: Karma Bahena [facility]Ptel: [phone] (15 min) Moderate 05/07/2015 Patient Education: Patient Medication Summary Completed 05/07/2015 Appointment: Nurse Visit 04/16/2015 Visit Plan: Atrial Fibrillation - pt on chronic anticoagulation and is currently rate controlled. The pt is to have labs done as appropriate to monitor medication levels and is to report if they start to feel as if their heart rate is becoming uncontrolled. Abdominal pain-resolved Gas/bloating- continue gas x-avoid gas forming foods-monitor symptoms 03/23/2015 Appointment: (30 min) Complex 03/23/2015 Patient Education: Patient Medication Summary Completed 03/23/2015 Visit Plan: Abdominal pain - improving - recommended bland diet, monitor abdominal pain, if worsens pt is to call the office JANET or go to the emergency room if the pain is significantly increasing. Atrial Fibrillation - pt on chronic anticoagulation and is currently rate controlled. The pt is to have labs done as appropriate to monitor medication levels and is to report if they start to feel as if their heart rate is becoming uncontrolled. 03/09/2015 Patient Education: Patient Medication Summary Completed 03/09/2015 Visit Plan: Hematuria - check UA. Referral to urologist. Hypertension - well controlled - continue with current medications, continue with no added salt diet. Pt has been encouraged to exercise daily. The pt has been advised to call the office if there are any acute concerns about change in blood pressure readings at home. Atrial Fibrillation - pt on chronic anticoagulation and is currently rate controlled. The pt is to have labs done as appropriate to monitor medication levels and is to report if they start to feel as if their heart rate is becoming uncontrolled. 10/30/2014 Appointment: Karma Bahena [facility]Ptel[phone] Follow up 10/30/2014 Patient Education: Patient Medication Summary Completed 10/30/2014 Appointment: Karma Bahena WPtel: [address] [place], [place] [id number] Follow up 07/22/2014 Visit Plan: Atrial Fibrillation - pt on chronic anticoagulation and is currently rate controlled. The pt is to have labs done as appropriate to monitor medication levels and is to report if they start to feel as if their heart rate is becoming uncontrolled. Allergies - chronic - recommended pt to use allergy medication as prescribed. Pt has been counseled as to the appropriate use of the medication. Pt to call if allergy symptoms are not controlled with the medication. If using nasal spray, instructions as follows: Nasal spray- use twice daily, one spray per nostril twice daily, after 30 minutes, rinse out nose with saline spray.. Use opposite hand per nostril to spray in the nasal steroid allergy spray. Recommended pt to continue with physical therapy for general osteoarthritis and osteoporosis. pt to increase vitamin d to 2000 units daily recommended to increase iron containing foods. dr will have staff call hospital to see if pneumonia vaccine was given in hospital. 07/11/2014 Appointment: Karma Bahena WPtel: [address] [place], [place] [id number] Sick 07/11/2014 Patient Education: Patient Medication Summary Completed 07/11/2014 Appointment: Karma Bahena WPtel: [address] [place], [place] [id number] Follow up 07/07/2014 Visit Plan: Urinary incontinence and recurrent UTI's - doctor will refer to Dr. Joel Collins - for nonsurgical intervention for potential electrical stimulation/training of pelvic floor muscles - for strengthening - can start on the treatment when you get back from [place] - will also ask him about doing a cystoscopy to look into bladder to see if there is any bladder irritation. keep using the Premarin - use about 25Cent size of cream onto finger to apply to urethra and do this three times weekly. 05/20/2014 Appointment: Karma Bahena WPtel: [address] [place], [place] [id number] Follow up 05/20/2014 Patient Education: Patient Medication Summary Completed 05/20/2014 Appointment: Karma Bahena WPtel: [address] [place] [id number] [place] Lab Draw 05/14/2014 Patient Education: Patient Medication Summary Completed 05/14/2014 Patient Education: Patient Medication Summary Completed 05/14/2014 Patient Education: Patient Medication Summary Completed 05/12/2014 Visit Plan: ua obtained, no need for culture at this time. 05/06/2014 Appointment: Nurse Visit 05/06/2014 Patient Education: Patient Medication Summary Completed 05/06/2014 Visit Plan: Hypertension - uncontrolled - the patient's medications have been modified as documented in the visit note. The patient has been counseled to cut back on salt in diet for a no added salt diet, low fat diet, start an exercise program with low weight bearing exercises and higher aerobic activity for heart health. The patient is to check blood pressure readings as an outpatient and either fax, call, or email the readings to the office next week for practitioner to review. The pt is to call for acute concerns. Atrial Fibrillation - pt on chronic anticoagulation and is currently rate controlled. The pt is to have labs done as appropriate to monitor medication levels and is to report if they start to feel as if their heart rate is becoming uncontrolled. Incontinence - recommended vesicare. 04/29/2014 Appointment: Karma Bahena [facility]Ptel[phone] Follow up 04/29/2014 Patient Education: Patient Medication Summary Completed 04/29/2014 Patient Education: Hypertension Completed 04/29/2014 Visit Plan: Hypertension - uncontrolled - the patient's medications have been modified as documented in the visit note. The patient has been counseled to cut back on salt in diet for a no added salt diet, low fat diet, start an exercise program with low weight bearing exercises and higher aerobic activity for heart health. The patient is to check blood pressure readings as an outpatient and either fax, call, or email the readings to the office next week for practitioner to review. The pt is to call for acute concerns. Byron is to increase the lisinopril to 20mg twice daily (in morning and evening Allergies - chronic - recommended pt to use allergy medication as prescribed. Pt has been counseled as to the appropriate use of the medication. Pt to call if allergy symptoms are not controlled with the medication. If using nasal spray, instructions as follows: Nasal spray- use twice daily, one spray per nostril twice daily, after 30 minutes, rinse out nose with saline spray.. Use opposite hand per nostril to spray in the nasal steroid allergy spray. use over the counter nasacort Nasal spray- use twice daily, one spray per nostril twice daily, after 30 minutes, rinse out nose with saline spray.. Use opposite hand per nostril to spray in the nasal steroid (nasacort) allergy spray. 03/20/2014 Appointment: Karma Bahena WPtel: [phone] [facility] [facility] 03/20/2014 Patient Education: Patient Medication Summary Completed 03/20/2014 Patient Education: Hypertension Completed 03/20/2014 Visit Plan: Hypertension - well controlled - continue with current medications, continue with no added salt diet. Pt has been encouraged to exercise daily. The pt has been advised to call the office if there are any acute concerns about change in blood pressure readings at home. Atrial Fibrillation - pt on chronic anticoagulation and is currently rate controlled. The pt is to have labs done as appropriate to monitor medication levels and is to report if they start to feel as if their heart rate is becoming uncontrolled. 03/05/2014 Appointment: Karma Bahena WPtel: [facility] [place] [id number] Follow up 03/05/2014 Patient Education: Patient Medication Summary Completed 03/05/2014 Patient Education: Hypertension Completed 03/05/2014 Visit Plan: Esophageal Reflux - the patient has been counseled against excessive intake of caffiene, spicy foods, peppermint, and cinnamon - all of which can exacerbate esophageal reflux. The patient is to take med ications as prescribed and call the office if the symptoms are not improving. Abdominal pain - persistent - with diarrhea interemittent - history of ischemic bowel - pt to have CTscan, and will be called with report. 01/29/2014 Appointment: Karma Bahena WPtel: [phone] [facility] Follow up 01/29/2014 Patient Education: Patient Medication Summary Completed 01/29/2014 Visit Plan: Diarrhea-Continue with a healthy diet,start with bland advance as tolerated and I have recommended addition of probiotic to the diet when having loose bowel movements. Instructed patient to call if she develops abdominal pain, diarrhea does not resolve, etc. Patient verbalized understanding of plan. 01/14/2014 Appointment: Sick 01/14/2014 Patient Education: Patient Medication Summary Completed 01/14/2014 Visit Plan: Atrial Fibrillation - pt on chronic anticoagulation and is currently rate controlled. The pt is to have labs done as appropriate to monitor medication levels and is to report if they start to feel as if their heart rate is becoming uncontrolled. HTN - controlled - no change in medications. Pt has fatigue, afib, weight loss, hx second hand smoke exposure,and dyspnea on exertion - will ask [facility] [place] Patient do an overnight oxygen study on [place] as she has cardiac history, weight loss, and nocturnal hypoxemia may be a part of her weight loss and fatigue. 12/25/2013 Appointment: [facility] [place] Follow up 12/25/2013 Patient Education: Patient Medication Summary Completed 12/25/2013 Patient Education: Hypertension Completed 12/25/2013 Visit Plan: Hypertension - well controlled - continue with current medications, continue with no added salt diet. Pt has been encouraged to exercise daily. The pt has been advised to call the office if there are any acute concerns about change in blood pressure readings at home. Atrial Fibrillation - pt on chronic anticoagulation and is currently rate controlled. The pt is to have labs done as appropriate to monitor medication levels and is to report if they start to feel as if their heart rate is becoming uncontrolled. Esophageal Reflux - the patient has been counseled against excessive intake of caffiene, spicy foods, peppermint, and cinnamon - all of which can exacerbate esophageal reflux. The patient is to take medications as prescribed and call the office if the symptoms are not improving. Pt to stay on omeprazole and carafate. Gas/Bloating - pt to increase gasex and beano to help alleviate the discomfort in abdomen and start on probiotic twice daily. 11/27/2013 Appointment: [facility] Ba[facility]el[phone] Follow up 11/27/2013 Patient Education: Patient Medication Summary Completed 11/27/2013 Patient Education: Hypertension Completed 11/27/2013 Visit Plan: Atrial Fibrillation - pt on chronic anticoagulation and is currently rate controlled. The pt is to have labs done as appropriate to monitor medication levels and is to report if they start to feel as if their heart rate is becoming uncontrolled. Digoxin and Coumadin doses are good for control of anticoagulation and heart rate. Osteoarthritis - [facility] for [facility] and pain reduction. Hypertension - well controlled - continue with current medications, continue with no added salt diet. Pt has been encouraged to exercise daily. The pt has been advised to call the office if there are any acute concerns about change in blood pressure readings at home. 09/12/2013 Appointment: Karma Bahena WPtel: [phone] [facility] Follow up 09/12/2013 Patient Education: Patient Medication Summary Completed 09/12/2013 Patient Education: Hypertension Completed 09/12/2013 Appointment: Karma Bahena WPtel: [phone] [facility] Follow up 08/21/2013 Visit Plan: Hypertension - uncontrolled - the patient's medications have been modified as documented in the visit note. The patient has been counseled to cut back on salt in diet for a no added salt diet, low fat diet, start an exercise program with low weight bearing exercises and higher aerobic activity for heart health. The patient is to check blood pressure readings as an outpatient and either fax, call, or email the readings to the office next week for practicioner to review. The pt is to call for acute concerns. Bruising-left leg-no injuury-on coumadin-check PT/INR 08/15/2013 Appointment: Karma Bahena WPtel: [phone] [facility] Follow up 08/15/2013 Patient Education: Patient Medication Summary Completed 08/15/2013 Patient Education: Hypertension Completed 08/15/2013 Visit Plan: Hypertension - uncontrolled -per patient's home blood pressure checks, but it is good in clinic - the pt is to bring by her jay next week - the patient's medications have been modified as documented in the visit note. The patient has been counseled to cut back on salt in diet for a no added salt diet, low fat diet, start an exercise program with low weight bearing exercises and higher aerobic activity for heart health. The patient is to check blood pressure readings as an outpatient and either fax, call, or email the readings to the office next week for practicioner to review. The pt is to call for acute concerns. Hematuria/dysuria - check urine, check coumadin level to make sure pt does not have excessive amt of medication causing high inr and bleeding in bladder. Advised pt to use moisture wipes and aloe based toilet paper to help decrease irritation of urethra. 08/01/2013 Appointment: Karma Bahena WPtel: [facility] [place] Follow up 08/01/2013 Patient Education: Patient Medication Summary Completed 08/01/2013 Patient Education: Hypertension Completed 08/01/2013 Appointment: Laura Colin WPtel: [facility]5 [phone] [place] Lab Draw 07/29/2013 Patient Education: Patient Medication Summary Completed 07/29/2013 Visit Plan: Osteoporosis-prolia on june 25-patient to let Dr Hansen know 07/01/2013 Appointment: Laura Colin WPtel: [facility]5 [phone] [place] Follow up 07/01/2013 Appointment: Karma Bahena WPtel: [address] [place], [place] [id number] [place] Follow up 07/01/2013 Patient Education: Patient Medication Summary Completed 07/01/2013 Appointment: Karma Bahena WPtel: [address] [place], [place] [id number] [place] Follow up 06/25/2013 Appointment: Karma Bahena WPtel: [address] [place] [id number] [place] Lab Draw 06/20/2013 Patient Education: Patient Medication Summary Completed 06/20/2013 Appointment: Karma Bahena WPtel: [address] [place] [id number] [place] Lab Draw 06/19/2013 Visit Plan: Atrial Fibrillation - pt on chronic anticoagulation and is currently rate controlled. The pt is to have labs done as appropriate to monitor medication levels and is to report if they start to feel as if their heart rate is becoming uncontrolled. Hypertension - well controlled - continue with current medications, continue with no added salt diet. Pt has been encouraged to exercise daily. The pt has been advised to call the office if there are any acute concerns about change in blood pressure readings at home. 05/29/2013 Appointment: Karma Bahena WPtel: [facility] Follow up 05/29/2013 Patient Education: Patient Medication Summary Completed 05/29/2013 Patient Education: Hypertension Completed 05/29/2013 Visit Plan: Atrial Fibrillation - pt on chronic anticoagulation and is currently rate controlled. The pt is to have labs done as appropriate to monitor medication levels and is to report if they start to feel as if their heart rate is becoming uncontrolled. Recent Elevated Digoxin level - recommneded pt to have digoxin level today. Hypertension - well controlled - continue with current medications, continue with no added salt diet. Pt has been encouraged to exercise daily. The pt has been advised to call the office if there are any acute concerns about change in blood pressure readings at home. 05/15/2013 Appointment: Karma Bahena WPtel: [facility] [place] [address] [place] Other 05/15/2013 Patient Education: Patient Medication Summary Completed 05/15/2013 Patient Education: Hypertension Completed 05/15/2013 Visit Plan: Hypertension - well controlled - continue with current medications, continue with no added salt diet. Pt has been encouraged to exercise daily. The pt has been advised to call the office if there are any acute concerns about change in blood pressure readings at home. Atrial Fibrillation - pt on chronic anticoagulation and is currently rate controlled. The pt is to have labs done as appropriate to monitor medication levels and is to report if they start to feel as if their heart rate is becoming uncontrolled. Concern for her dizziness potentially being due to Afib - check an event monitor, results to be sent to cardiology. Flu shot today. 04/23/2013 Appointment: Karma Bahena WPtel: [phone] [facility] Other 04/23/2013 Patient Education: Patient Medication Summary Completed 04/23/2013 Patient Education: Hypertension Completed 04/23/2013 Visit Plan: Constipation - uncontrolled - I have discussed with the patient the need for adequate fiber and water intake to facilitate soft, easily passed stools. The pt noted understanding of our conversation. I have given the patient a recipe for "power pudding" - equal parts, bran flakes, prune juice, and apple sauce. The pt is to call if symptoms not improved on this regimen. 03/21/2013 Appointment: Laura Colin WPtel: [phone] [phone] Follow up 03/21/2013 Patient Education: Patient Medication Summary Completed 03/21/2013 Visit Plan: Hypertension - well controlled - continue with current medications, continue with no added salt diet. Pt has been encouraged to exercise daily. The pt has been advised to call the office if there are any acute concerns about change in blood pressure readings at home. Atrial Fibrillation - pt on chronic anticoagulation and is currently rate controlled. The pt is to have labs done as appropriate to monitor medication levels and is to report if they start to feel as if their heart rate is becoming uncontrolled. 01/16/2013 Appointment: Karma Bahena WPtel: [facility]5 [facility] Follow up 01/16/2013 Patient Education: Patient Medication Summary Completed 01/16/2013 Patient Education: Hypertension Completed 01/16/2013 Visit Plan: Wound Instructions - Pt was instruced to keep the wound clean, wash with antibacterial soap, use triple antibiotic ointment, call if redness, pustular drainage, or any other acute conerns. 12/19/2012 Appointment: Karma Bahena WPtel: [address] [place], [place] [id number] Other 12/19/2012 Patient Education: Patient Medication Summary Completed 12/19/2012 Patient Education: Patient Medication Summary Completed 12/17/2012 Visit Plan: Cellulitis - improved- monitor symptoms - need to check handon Monday morning. 12/14/2012 Appointment: Karma Bahena WPtel: [facility]5 [facility] Follow up 12/14/2012 Patient Education: Patient Medication Summary Completed 12/14/2012 Visit Plan: Cellulitis - improved- monitor symptoms - need to check handon Monday morning. 12/12/2012 Appointment: Karma Bahena WPtel: [facility]5 [facility] Work-in 12/12/2012 Patient Education: Patient Medication Summary Completed 12/12/2012 Visit Plan: Cellulitis - continue with oral antibiotics as directed, return to clinic as previously directed, call for acute change in symptoms, worsening redness, warmth, discharge. 12/11/2012 Patient Education: Patient Medication Summary Completed 12/11/2012 Visit Plan: Cellulitis - continue with oral antibiotics as previously directed, return to clinic as previously directed, call for acute change in symptoms, worsening redness, warmth, discharge. 12/10/2012 Appointment: Karma Bahena WPtel: [facility]5 [facility] Other 12/10/2012 Patient Education: Patient Medication Summary Completed 12/10/2012 Visit Plan: Elevated digoxin level - pt was recommended to have her digoxin rechecked in 2 weeks, and to decrease her digoxin dose to one pill daily. Inflammatory arthritis - recommended to check for gout since it is the thumb on her right hand that is inflammed, we will call her to let her know if there are any changes that need to be made. Atrial Fibrillation - pt on chronic anticoagulation and is currently rate controlled. The pt is to have labs done as appropriate to monitor medication levels and is to report if they start to feel as if their heart rate is becoming uncontrolled. 10/30/2012 Appointment: Karma Bahena WPtel: [facility] Follow up 10/30/2012 Patient Education: Patient Medication Summary Completed 10/30/2012 Appointment: Laura Colin WPtel: [address] [place], [place] [phone] [place] Lab Draw 09/13/2012 Patient Education: Patient Medication Summary Completed 09/13/2012 Visit Plan: Hypertension - well controlled - continue with current medications, continue with no added salt diet. Pt has been encouraged to exercise daily. The pt has been advised to call the office if there are any acute concerns about change in blood pressure readings at home. Atrial Fibrillation - pt on chronic anticoagulation and is currently rate controlled. The pt is to have labs done as appropriate to monitor medication levels and is to report if they start to feel as if their heart rate is becoming uncontrolled. Chronic Anticoagulant use - Pt has been counseled about the anticoagulant, need for serial monitoring, and need for the pt to alert the physician as to any new bruising, or acute bleeding. Theraputic goal for INR is between 2.0 and 3.5. 08/08/2012 Appointment: Kar[facility] Bahena [facility]Ptel: [phone] [place] 08/08/2012 Patient Education: Patient Medication Summary Completed 08/08/2012 Patient Education: Hypertension Completed 08/08/2012 Visit Plan: Atrial Fibrillation - pt on chronic anticoagulation and is currently rate controlled. The pt is to have labs done as appropriate to monitor medication levels and is to report if they start to feel as if their heart rate is becoming uncontrolled. Hypertension - well controlled - continue with current medications, continue with no added salt diet. Pt has been encouraged to exercise daily. The pt has been advised to call the office if there are any acute concerns about change in blood pressure readings at home. Constipation - uncontrolled - I have discussed with the patient the need for adequate fiber and water intake to facilitate soft, easily passed stools. The pt noted understanding of our conversation. I have given the patient a recipe for "power pudding" - equal parts, bran flakes, prune juice, and apple sauce. The pt is to call if symptoms not improved on this regimen. 07/11/2012 Appointment: [facility] Bahen[facility]Ptel[facility] swelling, leg edema Other 07/11/2012 Patient Education: Patient Medication Summary Completed 07/11/2012 Visit Plan: Cystocele and rectocele - pt assured of the lack of mass causing the obstruction, she has been advised to lay on bed to insert her medication or lean back on toilet seat to help decrease the pressure in her pelvis and thus hopefully aide the insertion of the medication vaginally. 05/08/2012 Appointment: Karma Bahena WPtel: [address] [place] [id number] Follow up 05/08/2012 Patient Education: Patient Medication Summary Completed 05/08/2012 Visit Plan: Atrial Fibrillation - pt on chronic anticoagulation and is currently rate controlled. The pt is to have labs done as appropriate to monitor medication levels and is to report if they start to feel as if their heart rate is becoming uncontrolled. Hypertension - well controlled - continue with current medications, continue with no added salt diet. Pt has been encouraged to exercise daily. The pt has been advised to call the office if there are any acute concerns about change in blood pressure readings at home. Chronic Anticoagulant use - Pt has been counseled about the anticoagulant, need for serial monitoring, and need for the pt to alert the physician as to any new bruising, or acute bleeding. Theraputic goal for INR is between 2.0 and 3.5. Small bowel resection - pt to continue with slowly advancing diet, attempting to increase protein to gain back the weight that was lost during hospitalization. 04/18/2012 Appointment: Karma Bahena WPtel: [address] [place] [id number] Follow up 04/18/2012 Patient Education: Patient Medication Summary Completed 04/18/2012 Patient Education: High Blood Pressure: Essential Hypertension Completed 04/18/2012 Appointment: Karma Bahena WPtel: [address] [place] [id number] Follow up 04/09/2012 Appointment: Karma Bahena WPtel: [address] [place] [id number] [place] Lab Draw 04/04/2012 Appointment: Laura Colin WPtel: [address] [place], [place] [phone] [place] Lab Draw 03/19/2012 Visit Plan: Abdominal pain-N/V-patient acutely ill and requires admission to the hospital for further work up-Dr. Bahena in to evalaute patient as well-Will keep patient NPO for now and plan to check CT scan as well as labs and start patient on intravenous fluids. Patient verbalized understanding of plan. Doctor's eval of the patient - I, Dr. Bahena, personally evaluated the patient with the nurse practicioner. I have reviewed the patient's chart, I have reviewed the patient's past medical history, problem list, medication list, and personal history. I agree with the documentation by the nurse practicioner in the HPI, physical exam, and the assessment and plan. Admission to Hospital - Pt has diagnosis of acute illness necessitating hospital admission from the clinic. I have discussed the diagnosis and need for further work-up and acute hospital stay for the patient's health benefit. I suspect a small bowel obstruction, pt admitted, ct scan and consult by surgeon of pt choice, pt on pradaxa, will have to start heparin protocol. 03/13/2012 Visit Plan: Abdominal pain-N/V-patient acutely ill and requires admission to the hospital for further work up-Dr. Bahena in to evalaute patient as well-Will keep patient NPO for now and plan to check CT scan as well as labs and start patient on intravenous fluids. Patient verbalized understanding of plan. 03/13/2012 Patient Education: Patient Medication Summary Completed 03/13/2012 Patient Education: High Blood Pressure: Essential Hypertension Completed 03/13/2012 Appointment: Karma Bahena WPtel: [facility] [place] Lab Draw 03/08/2012 Patient Education: Patient Medication Summary Completed 03/08/2012 Visit Plan: Atrial Fibrillation - pt on chronic anticoagulation and is currently rate controlled. The pt is to have labs done as appropriate to monitor medication levels and is to report if they start to feel as if their heart rate is becoming uncontrolled. Pt is to continue with digoxin and pradaxa. Hypertension - well controlled - continue with current medications, continue with no added salt diet. Pt has been encouraged to exercise daily. The pt has been advised to call the office if there are any acute concerns about change in blood pressure readings at home. Jeannie and romina- recommended cardiac rehab. 02/20/2012 Appointment: Kar[facility] Bahena [facility]Ptel: [facility] [facility] 02/20/2012 Patient Education: Patient Medication Summary Completed 02/20/2012 Visit Plan: Hematuria-positive blood on UA today-plan to culture- discussed natural and expected course of this diagnosis and to alert me if symptoms do not follow expected course, or if any worse. Avoid tub baths, restrictive underwear, etc. Patient verbalized understanding of plan. Yeast infectin-RX for diflucan sent to patient's pharmacy Atrial Fibrillation - pt on chronic anticoagulation and is currently rate controlled. The pt is to have labs done as appropriate to monitor medication levels and is to report if they start to feel as if their heart rate is becoming uncontrolled. 02/13/2012 Appointment: Laura Colin WPtel: 1015 [facility] [place] [address] Other 02/13/2012 Patient Education: Patient Medication Summary Completed 02/13/2012 Appointment: Karma Bahena WPtel: [address] [place] [id number] Lab Draw 02/07/2012 Visit Plan: Atrial Fibrillation - pt on chronic anticoagulation and is currently rate controlled. The pt is to have labs done as appropriate to monitor medication levels and is to report if they start to feel as if their heart rate is becoming uncontrolled. Pradaxa is too expensive, therefore, pt is wanting to change to coumadin.. I have recommended that she call the office next week to report which day she will be out of the pradaxa.. I would like to have her stop the pradaxa on a monday and start the coumadin on a Monday evening, then continue with the coumadin and check a PT/INR ON THE MONDAY AFTER SHE START S THE COUMADIN, THEN AGAIN THE NEXT MONDAY, AND SO FORTH UNTIL A STEADY STATE IS REACHED FOR THE COUMADIN LEVEL IN THE BLOOD. Hypertension - well controlled - continue with current medications, continue with no added salt diet. Pt has been encouraged to exercise daily. The pt has been advised to call the office if there are any acute concerns about change in blood pressure readings at home. Urge incontinence - recommended pt to keep on the vesicare as it does not cross the blood brain barrier and it is working fairly well for Byron, therefore, would not change the medication. 02/01/2012 Appointment: Karma Bahena WPtel: 1015 [facility] [place] Other 02/01/2012 Patient Education: Patient Medication Summary Completed 02/01/2012 Patient Education: High Blood Pressure: Essential Hypertension Completed 02/01/2012 Appointment: Karma Bahena WPtel: [facility]5 [facility] Lab Draw 01/17/2012 Visit Plan: Atrial Fibrillation - pt on chronic anticoagulation and is currently rate controlled. The pt is to have labs done as appropriate to monitor medication levels and is to report if they start to feel as if their heart rate is becoming uncontrolled. DIGOXIN LEVEL FOR 01-17-12 and then on 02/07/12, then blood work again on March 08, april 05, then again in June- this is the start of the every three month digoxin levels. Hypertension - well controlled - continue with current medications, continue with no added salt diet. Pt has been encouraged to exercise daily. The pt has been advised to call the office if there are any acute concerns about change in blood pressure readings at home. 2012 Appointment: Karma Bahena WPtel: [facility]3 [facility] Other 2012 Patient Education: Patient Medication Summary Completed 2012 Patient Education: High Blood Pressure: Essential Hypertension Completed 2012 Appointment: Karma Bahena WPtel: [facility]5 [facility] Follow up 12/20/2011 Visit Plan: Dicyclomine up to every 6 hours, and take one pill before the meals that you know are problematic. Continue with omeprazole, take in the evening and take the sample of the dexilant in the morning as well for the next 10 days. Pt has been instructed to call the office on Monday to let us know how she is feeling. If the elevated blood pressure or abdominal pain recurrs, she is to go to the emergency room. 12/01/2011 Appointment: Karma Bahena WPtel: [facility]6 [facility] Other 12/01/2011 Patient Education: Patient Medication Summary Completed 12/01/2011 Patient Education: High Blood Pressure: Essential Hypertension Completed 12/01/2011 Visit Plan: Urinary Tract Infection-discussed natural and expected course of this diagnosis and to alert me if symptoms do not follow expected course, or if any worse. UA positive for infection today in the office-plan to send for culture and will call patient with results. RX sent to patient's pharmacy. Avoid tub baths, restrictive underwear, etc. Recommend patient start on probiotic while taking the antibiotic to prevent diarrhea. Patient verbalized understanding of plan. Hypertension - elevated today-monitor closely at home and call tomorrow with readings. The patient has been counseled to cut back on salt in diet for a no added salt diet, low fat diet, start an exercise program with low weight bearing exercises and higher aerobic activity for heart health. The patient is to check blood pressure readings as an outpatient and either fax, call, or email the readings to the office next week for practicioner to review. The pt is to call for acute concerns. Urge incontinence -Pt has urge incontinence - the patient has been counseled about potential triggers for increase in sensation of the urgency - the pt has been counseled to avoid caffinated products, spicy products, and to urinate every 2-3 hours to prevent the incontinence associated with the urgency. Pt is to continue with current treatment plan and call if symptoms worsen-increase vesicare to 10mg daily after acute infection resolves. 11/23/2011 Appointment: Laura Colin WPtel: [address] [place], [place] [phone] [place] Other 11/23/2011 Patient Education: Patient Medication Summary Completed 11/23/2011 Patient Education: High Blood Pressure: Essential Hypertension Completed 11/23/2011 Visit Plan: Cerumen Impaction - The impacted cerumen was removed with the use of either ear currette alone or in combination with ear curette and water pick. The patient tolerated the procedure without incident and had improvement in hearing 10/17/2011 Appointment: Laura Colin WPtel: [address] [place], [place] [id number] Other 10/17/2011 Patient Education: Patient Medication Summary Completed 10/17/2011 Visit Plan: Hypertension - well controlled - continue with current medications, continue with no added salt diet. Pt has been encouraged to exercise daily. The pt has been advised to call the office if there are any acute concerns about change in blood pressure readings at home. Stop the magnesium and potassium Pt to start walking and riding her recumbant bike Impacted Cerumen - not amenable to removal today - Pt advised as follows: Sweet oil 1mL in the left ear nightly x 11-14 days. then return to clinic to have the wax removed by irrigation. 10/03/2011 Appointment: Karma Bahena WPtel: [address] [place] [address] Other 10/03/2011 Patient Education: Patient Medication Summary Completed 10/03/2011 Patient Education: High Blood Pressure: Essential Hypertension Completed 10/03/2011 Visit Plan: Hypertension - well controlled - continue with current medications, continue with no added salt diet. Pt has been encouraged to exercise daily. The pt has been advised to call the office if there are any acute concerns about change in blood pressure readings at home. DUE TO ITCHING, WE WILL HAVE BYRON STOP HER LISINOPRIL/HCTZ COMBINATION PILL AND ONLY USE A NEW SCRIPT FOR LISINOPRIL.. Hopefully, the pruritis will improve off of the combination pill.. Pruritis- pt to look at home for evidence of bedbugs, call if there is evidence. 08/08/2011 Appointment: Karma Bahena WPtel: [facility] Other 08/08/2011 Patient Education: Patient Medication Summary Completed 08/08/2011 Patient Education: High Blood Pressure: Essential Hypertension Completed 08/08/2011 Visit Plan: Muscle cramps - the cramps are a little better, continue with the Diltiazem and it is okay to use the over the counter supplement with quinine - but use it sparingly. For the rash, use the prescripti on the surveying crew rodman prescribed for the itching , call if the rash is not improved. Torticollis - continue with physical therapy, call if the neck muscles do not continue to show improvement. 05/09/2011 Appointment: Karma Bahena WPtel: [facility] Other 05/09/2011 Patient Education: Patient Medication Summary Completed 05/09/2011 Patient Education: Muscle Cramps from Exercise Completed 05/09/2011 Patient Education: Restless Legs Syndrome Completed 05/09/2011 Visit Plan: Leg cramps - uncontrolled with the use of the mirapex - recommend alternative treatment with DILTIAZEM 90 MG TABLET 1/2 A PILL BEFORE BED. Pt has been instructed to stop the mirapex. CHECK YOUR BLOOD PRESSURE IN THE MORNINGS, OR IF YOU WAKE UP IN THE MIDDLE OF THE NIGHT AND FEEL DIZZY OR LIGHT HEADED, CHECK YOUR BLOOD PRESSURE. Weight Improved - - you have gained 2 pounds, continue with the extra protein in your diet and continue with water aerobics. 03/29/2011 Appointment: Karma Bahena WPtel: [address] [place] [address] [place] Other 03/29/2011 Patient Education: Patient Medication Summary Completed 03/29/2011 Appointment: Karma Bahena WPtel: [address] [place] [address] Other 03/17/2011 Visit Plan: UTI - UA negative. Urge incontinence- restart on the vesicare- at 5 mg. Continue to avoid caffinated foods/fluids. Peripheral Neuropathy - per lending advisor report - Continue with the metanex. Loss of weight - WEIGHT CHECK IN 2 WKS. Palpitations- likely stress induced. If the symptoms worsen, call the office. 03/15/2011 Appointment: Karma Bahena WPtel: [address] [place], [place] [id number] Follow up 03/15/2011 Patient Education: Patient Medication Summary Completed 03/15/2011 Visit Plan: Rocephin 500mg IM 03/04/2011 Patient Education: Patient Medication Summary Completed 03/04/2011 Referral: Dr Jeff Referral Appointment Requested Referral: Corby [place] Referral Appointment Requested Instructions Comment . URI - Pt advised to increase fluids, vitamin C. Discussed natural and expected course of this diagnosis and need to alert me if symptoms do not follow expected course, or if any worse. RX sent to patient's pharmacy. Allergies - chronic - recommended pt to use allergy medication as prescribed. Pt has been counseled as to the appropriate use of the medication. Pt to call if allergy symptoms are not controlled with the medication. If using nasal spray, instructions as follows: Nasal spray- use twice daily, one spray per nostril twice daily, after 30 minutes, rinse out nose with saline spray.. Use opposite hand per nostril to spray in the nasal steroid allergy spray. Raynauds - increase amlodipine to a full pill and notify clinic with any changes, questions, or concerns. change the thyroid to 1/2 pill on monday and - and a full pill on monday, monday, monday, monday and monday. Corby Collins - urinary incontinence - Dr. Bahena's office will refer. . Atrial Fibrillation - pt on chronic anticoagulation and is currently rate controlled. The pt is to have labs done as appropriate to monitor medication levels and is to report if they start to feel as if their heart rate is becoming uncontrolled. Hypothyroidism - pt with chronic hypothyroidism, continue with current medication, will monitor pt to signs or symptoms of lack of adequate supplementation. Pt is to continue with current dose of medication unless directed otherwise. Check labs at regular intervals wither q 3 months or q 6 months based on previous levels of control. Decrease synthroid dose to 1/2 pill two days a week and a full pill on other days. Urge incontinence - with cystocele - and fecal symptoms - referral to Dr. Collins. . I have called Dr. Rock about blood flow to extremities - decreased pedal pulses, non-healing dry scab on tip of right great toe with pain in toe, he has advised for the pt to come to his office for Rosita to do lower extremity blood flow. They will call her to get her in for an appt next week. Atrial Fibrillation - pt on chronic anticoagulation and is currently rate controlled. The pt is to have labs done as appropriate to monitor medication levels and is to report if they start to feel as if her heart rate is becoming uncontrolled. Raynaud syndrome - discussed treatment options with the patient - continue with amlodipine 5mg 1/2 pill daily - keep heat on fingers - and toes - discussed need to keep hands warm during the winter, and nitro on fingers/toes. Sebaceous cyst of vaginal tissue - advised pt that this is not cancerous and she needs to let me know if it enlarges greatly as it would need to be surgically removed. . Hypertension - uncontrolled -per patient's home blood pressure checks, but it is good in clinic - the pt is to bring by her jay next week - the patient's medications have been modified as documented in the visit note. The patient has been counseled to cut back on salt in diet for a no added salt diet, low fat diet, start an exercise program with low weight bearing exercises and higher aerobic activity for heart health. The patient is to check blood pressure readings as an outpatient and either fax, call, or email the readings to the office next week for practicioner to review. The pt is to call for acute concerns. Hematuria/dysuria - check urine, check coumadin level to make sure pt does not have excessive amt of medication causing high inr and bleeding in bladder. Advised pt to use moisture wipes and aloe based toilet paper to help decrease irritation of urethra. . UTI - UA negative. Urge incontinence- restart on the vesicare- at 5 mg. Continue to avoid caffinated foods/fluids. Peripheral Neuropathy - per lending advisor report - Continue with the metanex. Loss of weight - WEIGHT CHECK IN 2 WKS. Palpitations- likely stress induced. If the symptoms worsen, call the office. . Gout Attack - Pt complains of acute pain in the right great toe that started 3-4 days ago. Pt given RX for uric Acid Level. Pt states symptoms are improving. Pt to call if symptoms do not improve, and pt to be given results of labs when available. Skin lesion - will monitor for change in size, color, consistency, recheck at follow up appointment. strep swab salt water gargle keflex if needed over the weekend . Pharyngitis-Discussed natural and expected course of this diagnosis and need to alert me if symptoms do not follow expected course, or if any worse. Recommended salt water gargles as needed for pain. Tylenol/motrin as needed for fever/discomfort. . Atrial Fibrillation - pt on chronic anticoagulation and is currently rate controlled. The pt is to have labs done as appropriate to monitor medication levels and is to report if they start to feel as if their heart rate is becoming uncontrolled. Pradaxa is too expensive, therefore, pt is wanting to change to coumadin.. I have recommended that she call the office next week to report which day she will be out of the pradaxa.. I would like to have her stop the pradaxa on a monday and start the coumadin on a Monday evening, then continue with the coumadin and check a PT/INR ON THE MONDAY AFTER SHE STARTS THE COUMADIN, THEN AGAIN THE NEXT MONDAY, AND SO FORTH UNTIL A STEADY STATE IS REACHED FOR THE COUMADIN LEVEL IN THE BLOOD. Hypertension - well controlled - continue with current medications, continue with no added salt diet. Pt has been encouraged to exercise daily. The pt has been advised to call the office if there are any acute concerns about change in blood pressure readings at home. Urge incontinence - recommended pt to keep on the vesicare as it does not cross the blood brain barrier and it is working fairly well for Byron, therefore, would not change the medication. . [id number] zpack-call if symptoms do not resolve or if any worse. Patient verbalized understanding of plan. . Atrial Fibrillation - pt on chronic anticoagulation and is currently rate controlled. The pt is to have labs done as appropriate to monitor medication levels and is to report if they start to feel as if their heart rate is becoming uncontrolled. Recent Elevated Digoxin level - recommneded pt to have digoxin level today. Hypertension - well controlled - continue with current medications, continue with no added salt diet. Pt has been encouraged to exercise daily. The pt has been advised to call the office if there are any acute concerns about change in blood pressure readings at home. . Muscle cramps - the cramps are a little better, continue with the Diltiazem and it is okay to use the over the counter supplement with quinine - but use it sparingly. For the rash, use the prescription the surveying crew rodman prescribed for the itching , call if the rash is not improved. Torticollis - continue with physical therapy, call if the neck muscles do not continue to show improvement. . Atrial Fibrillation - pt on chronic anticoagulation and is currently rate controlled. The pt is to have labs done as appropriate to monitor medication levels and is to report if they start to feel as if their heart rate is becoming uncontrolled. Digoxin and Coumadin doses are good for control of anticoagulation and heart rate. Osteoarthritis - send pt to [facility] physical therapy for gereral osteoarhtritis program for strengthening and pain reduction. Hypertension - well controlled - continue with current medications, continue with no added salt diet. Pt has been encouraged to exercise daily. The pt has been advised to call the office if there are any acute concerns about change in blood pressure readings at home. . Cellulitis - improved- monitor symptoms - need to check handon Monday morning. . Hypothyroidism - pt with chronic hypothyroidism, continue with current medication, will monitor pt to signs or symptoms of lack of adequate supplementation. Pt is to continue with current dose of medication unless directed otherwise. Check labs at regular intervals wither q 3 months or q 6 months based on previous levels of control. Atrial Fibrillation - pt on chronic anticoagulation and is currently rate controlled. The pt is to have labs done as appropriate to monitor medication levels and is to report if they start to feel as if their heart rate is becoming uncontrolled. Laceration of arm - healing - continue with supportive care, bactroban, etc. . Atrial Fibrillation - pt on chronic anticoagulation and is currently rate controlled. The pt is to have labs done as appropriate to monitor medication levels and is to report if they start to feel as if their heart rate is becoming uncontrolled. Pt is to continue with digoxin and pradaxa. Hypertension - well controlled - continue with current medications, continue with no added salt diet. Pt has been encouraged to exercise daily. The pt has been advised to call the office if there are any acute concerns about change in blood pressure readings at home. Fstigue and dypnea- recommended cardiac rehab. rita hen hearing aide drying beads - ask your hearing aide provider about these beads sebaceous cyst - this is benign . Hypertension - well controlled - continue with current medications, continue with no added salt diet. Pt has been encouraged to exercise daily. The pt has been advised to call the office if there are any acute concerns about change in blood pressure readings at home. Atrial Fibrillation - pt on chronic anticoagulation and is currently rate controlled. The pt is to have labs done as appropriate to monitor medication levels and is to report if they start to feel as if their heart rate is becoming uncontrolled. Hypothyroidism - pt with chronic hypothyroidism, continue with current medication, will monitor pt to signs or symptoms of lack of adequate supplementation. Pt is to continue with current dose of medication unless directed otherwise. Check labs at regular intervals wither q 3 months or q 6 months based on previous levels of control. . Allergies - chronic - recommended pt to use allergy medication as prescribed. Pt has been counseled as to the appropriate use of the medication. Pt to call if allergy symptoms are not controlled with the medication. If using nasal spray, instructions as follows: Nasal spray- use twice daily, one spray per nostril twice daily, after 30 minutes, rinse out nose with saline spray.. Use opposite hand per nostril to spray in the nasal steroid allergy spray. . Hypothyroidism - pt with chronic hypothyroidism, continue with current medication, will monitor pt to signs or symptoms of lack of adequate supplementation. Pt is to continue with current dose of medication unless directed otherwise. Check labs at regular intervals q 3 months or q 6 months based on previous levels of control. Hypertension - well controlled - continue with current medications, continue with no added salt diet. Pt has been encouraged to exercise daily. The pt has been advised to call the office if there are any acute concerns about change in blood pressure readings at home. Atrial Fibrillation - pt on chronic anticoagulation and is currently rate controlled. The pt is to have labs done as appropriate to monitor medication levels and is to report if they start to feel as if their heart rate is becoming uncontrolled. 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 Hypertension - well controlled - continue with current medications, continue with no added salt diet. Pt has been encouraged to exercise daily. The pt has been advised to call the office if there are any acute concerns about change in blood pressure readings at home. Atrial Fibrillation - pt on chronic anticoagulation and is currently rate controlled. The pt is to have labs done as appropriate to monitor medication levels and is to report if they start to feel as if their heart rate is becoming uncontrolled. . Leg cramps - uncontrolled with the use of the mirapex - recommend alternative treatment with DILTIAZEM 90 MG TABLET 1/2 A PILL BEFORE BED. Pt has been instructed to stop the mirapex. CHECK YOUR BLOOD PRESSURE IN THE MORNINGS, OR IF YOU WAKE UP IN THE MIDDLE OF THE NIGHT AND FEEL DIZZY OR LIGHT HEADED, CHECK YOUR BLOOD PRESSURE. Weight Improved - - you have gained 2 pounds, continue with the extra protein in your diet and continue with water aerobics. Nasal spray- use twice daily, one spray per nostril twice daily, after 30 minutes, rinse out nose with saline spray.. Use opposite hand per nostril to spray in the nasal steroid allergy spray. . Hypertension - well controlled - continue with current medications, continue with no added salt diet. Pt has been encouraged to exercise daily. The pt has been advised to call the office if there are any acute concerns about change in blood pressure readings at home. Atrial Fibrillation - pt on chronic anticoagulation and is currently rate controlled. The pt is to have labs done as appropriate to monitor medication levels and is to report if they start to feel as if their heart rate is becoming uncontrolled. Hypothyroidism - pt with chronic hypothyroidism, continue with current medication, will monitor pt to signs or symptoms of lack of adequate supplementation. Pt is to continue with current dose of medication unless directed otherwise. Check labs at regular intervals wither q 3 months or q 6 months based on previous levels of control. Cough/URI symptoms - Nasal spray- use twice daily, one spray per nostril twice daily, after 30 minutes, rinse out nose with saline spray.. Use opposite hand per nostril to spray in the nasal steroid allergy spray. . Cellulitis - continue with oral antibiotics as previously directed, return to clinic as previously directed, call for acute change in symptoms, worsening redness, warmth, discharge. . Cyst - epidermal cyst - pt to continue to use prn betamethasone on rectum for discomfort. HTN - and Afib - controlled/stable - no change in current mangement - pt to call if she notices her blood pressure or heart rate becoming uncontrolled. increase the lisinopril to 20mg twice daily 1/2 of the digoxin nightly . Hypertension - uncontrolled - the patient's medications have been modified as documented in the visit note. The patient has been counseled to cut back on salt in diet for a no added salt diet, low fat diet, start an exercise program with low weight bearing exercises and higher aerobic activity for heart health. The patient is to check blood pressure readings as an outpatient and either fax, call, or email the readings to the office next week for practitioner to review. The pt is to call for acute concerns. Atrial Fibrillation - pt on chronic anticoagulation and is currently rate controlled. The pt is to have labs done as appropriate to monitor medication levels and is to report if they start to feel as if their heart rate is becoming uncontrolled. Hemorrhoid - recommended pt to use betamethasone ointment on rectal tissue . Cellulitis - continue with oral antibiotics as directed, return to clinic as previously directed, call for acute change in symptoms, worsening redness, warmth, discharge. . Hypertension - well controlled - continue with current medications, continue with no added salt diet. Pt has been encouraged to exercise daily. The pt has been advised to call the office if there are any acute concerns about change in blood pressure readings at home. Atrial Fibrillation - pt on chronic anticoagulation and is currently rate controlled. The pt is to have labs done as appropriate to monitor medication levels and is to report if they start to feel as if their heart rate is becoming uncontrolled. Edema - continue with compression and prn use of lasix . Cerumen Impaction - The impacted cerumen was removed with the use of the ear currette. The patient tolerated the procedure without incident and had improvement in hearing. The wax was removed by the practitioner due to the wax being more complicated to remove, and staff was needed to assist the removal of the wax by holding the ear, and keeping patient stabilized during the removal process. . Cerumen Impaction - The impacted cerumen was removed with the use of either ear currette alone or in combination with ear curette and water pick. The patient tolerated the procedure without incident and had improvement in hearing . Cellulitis - improved- monitor symptoms - need to check handon Monday morning. . Abdominal pain and rectal itching - recommended pt to use betamethasone on vaginal/rectal region, monitor symptoms call if not improving. Continue with beano and simethicone . Hypertension - well controlled - continue with current medications, continue with no added salt diet. Pt has been encouraged to exercise daily. The pt has been advised to call the office if there are any acute concerns about change in blood pressure readings at home. Osteoporosis - prolia shot to be scheduled JANET Afib - rate controlled Urge Incontinence - recommended pt to start on Kegel exercises and if not improving will consult Dr. [place]. continue with carafate - use as much as needed to control symptoms, but try to slowly decrease to a dose that controls symptoms. use A and D ointment on the dry areas of skn on arms - if does not improve, then will need to consider Byron having cryotherapy of the lesions use probiotic twice daily for abdominal discomfort Hold aspirin x 1 week omeprazole only has to be taken 30 minutes before food has been taken in - it does not have to be taken right before a meal.. Hypertension - well controlled - continue with current medications, continue with no added salt diet. Pt has been encouraged to exercise daily. The pt has been advised to call the office if there are any acute concerns about change in blood pressure readings at home. Atrial Fibrillation - pt on chronic anticoagulation and is currently rate controlled. The pt is to have labs done as appropriate to monitor medication levels and is to report if they start to feel as if their heart rate is becoming uncontrolled. Esophageal Reflux - the patient has been counseled against excessive intake of caffiene, spicy foods, peppermint, and cinnamon - all of which can exacerbate esophageal reflux. The patient is to take medications as prescribed and call the office if the symptoms are not improving. Pt to stay on omeprazole and carafate. Gas/Bloating - pt to increase gasex and beano to help alleviate the discomfort in abdomen and start on probiotic twice daily. . Hypertension - well controlled - continue with current medications, continue with no added salt diet. Pt has been encouraged to exercise daily. The pt has been advised to call the office if there are any acute concerns about change in blood pressure readings at home. Edema - pt has been advised to elevate legs to prevent dependent edema, compression has been recommended to help to naturally decrease peripheral edema. Diuretic use has been discussed and pt has been instructed in appropriate use of such medication as necessary to further attempt to reduce peripheral edema. Osteoporosis - prolia - scheduled for April 11 - order needs sent. Need for flu shot - pt has been given high dose flu shot today. . Hypertension - well controlled - continue with current medications, continue with no added salt diet. Pt has been encouraged to exercise daily. The pt has been advised to call the office if there are any acute concerns about change in blood pressure readings at home. Stop the magnesium and potassium Pt to start walking and riding her recumbant bike Impacted Cerumen - not amenable to removal today - Pt advised as follows: Sweet oil 1mL in the left ear nightly x 11-14 days. then return to clinic to have the wax removed by irrigation. RETURN FOR DRESSING CHANGE ON MONDAY . Laceration-right forearm- Pt was instructed to keep the wound clean, cleanse with sterile saline, use bactroban ointment, call if redness, pustular drainage, or any other acute concerns. Follow up Monday for dressing changes. . Edema - with Dyspnea - RX for laxis and compression socks - pt to call if not improving. . ua obtained, no need for culture at this time. . Rocephin 500mg IM pt is to stop her omeprazole and start on pepcid complete or zantac - take this twice daily. we will order a ct of the abdomen and pelvis with and without iv contrast and oral contrast . Esophageal Reflux - the patient has been counseled against excessive intake of caffiene, spicy foods, peppermint, and cinnamon - all of which can exacerbate esophageal reflux. The patient is to take medications as prescribed and call the office if the symptoms are not improving. Abdominal pain - persistent - with diarrhea interemittent - history of ischemic bowel - pt to have CTscan, and will be called with report. . Atrial Fibrillation - pt on chronic anticoagulation and is currently rate controlled. The pt is to have labs done as appropriate to monitor medication levels and is to report if they start to feel as if their heart rate is becoming uncontrolled. DIGOXIN LEVEL FOR 01-17-12 and then on 02/07/12, then blood work again on March 08, april 05, then again in June- this is the start of the every three month digoxin levels. Hypertension - well controlled - continue with current medications, continue with no added salt diet. Pt has been encouraged to exercise daily. The pt has been advised to call the office if there are any acute concerns about change in blood pressure readings at home. . Hypertension - well controlled - continue with current medications, continue with no added salt diet. Pt has been encouraged to exercise daily. The pt has been advised to call the office if there are any acute concerns about change in blood pressure readings at home. Atrial Fibrillation - pt on chronic anticoagulation and is currently rate controlled. The pt is to have labs done as appropriate to monitor medication levels and is to report if they start to feel as if their heart rate is becoming uncontrolled. Chronic Anticoagulant use - Pt has been counseled about the anticoagulant, need for serial monitoring, and need for the pt to alert the physician as to any new bruising, or acute bleeding. Theraputic goal for INR is between 2.0 and 3.5. Bowel Regimen stool softener - four at bedtime citrucell daily start taking the miralax 1/2 dose on Monday, Monday, Monday.. Dicyclomine up to every 6 hours, and take one pill before the meals that you know are problematic. Continue with omeprazole, take in the evening and take the sample of the dexilant in the morning as well for the next 10 days. Pt has been instructed to call the office on Monday morning to let us know how she is feeling. If the elevated blood pressure or abdominal pain recurrs, she is to go to the emergency room. IF HEART RATE UNDER 60 CONSISTENTLY TAKE 1/2 TAB OF DIGOXIN AND CALL WITH OFFICE WITH READINGS . Atrial Fibrillation - pt on chronic anticoagulation and is currently rate controlled. The pt is to have labs done as appropriate to monitor medication levels and is to report if they start to feel as if their heart rate is becoming uncontrolled. Hypertension - well controlled - continue with current medications, continue with no added salt diet. Pt has been encouraged to exercise daily. The pt has been advised to call the office if there are any acute concerns about change in blood pressure readings at home. Hypothyroidism - pt with chronic hypothyroidism, continue with current medication, will monitor pt to signs or symptoms of lack of adequate supplementation. Pt is to continue with current dose of medication unless directed otherwise. Check labs at regular intervals wither q 3 months or q 6 months based on previous levels of control. Left renal cancer-recently had left kidney and ureter removed in [place]- doing well . Hematuria - check UA. Referral to urologist. Hypertension - well controlled - continue with current medications, continue with no added salt diet. Pt has been encouraged to exercise daily. The pt has been advised to call the office if there are any acute concerns about change in blood pressure readings at home. Atrial Fibrillation - pt on chronic anticoagulation and is currently rate controlled. The pt is to have labs done as appropriate to monitor medication levels and is to report if they start to feel as if their heart rate is becoming uncontrolled. Increase diltiazem 120mg cd ONE pill TWICE daily take first diltiazem when you get up in the morning, and second dose right before bed. . Hypertension - uncontrolled - the patient's medications have been modified as documented in the visit note. The patient has been counseled to cut back on salt in diet for a no added salt diet, low fat diet, start an exercise program with low weight bearing exercises and higher aerobic activity for heart health. The patient is to check blood pressure readings as an outpatient and either fax, call, or email the readings to the office next week for practitioner to review. The pt is to call for acute concerns. Atrial Fibrillation - pt on chronic anticoagulation and is currently rate controlled. The pt is to have labs done as appropriate to monitor medication levels and is to report if they start to feel as if their heart rate is becoming uncontrolled. Incontinence - recommended vesicare. Miralax- take 1/2 dose daily, and may increase or decrease the dose as needed for soft stools. check digoxin levle next week.. Atrial Fibrillation - pt on chronic anticoagulation and is currently rate controlled. The pt is to have labs done as appropriate to monitor medication levels and is to report if they start to feel as if their heart rate is becoming uncontrolled. Hypertension - well controlled - continue with current medications, continue with no added salt diet. Pt has been encouraged to exercise daily. The pt has been advised to call the office if there are any acute concerns about change in blood pressure readings at home. Constipation - uncontrolled - I have discussed with the patient the need for adequate fiber and water intake to facilitate soft, easily passed stools. The pt noted understanding of our conversation. I have given the patient a recipe for "power pudding" - equal parts, bran flakes, prune juice, and apple sauce. The pt is to call if symptoms not improved on this regimen. . Osteoporosis-prolia on june 25-patient to let Dr Hansen know CHECK LABS TODAY ER IF SYMPTOMS WORSEN DSCUSSED . Afib- rate uncontrolled- called Dr Rock's office and he recommends she go to ER to be evaluated -discussed with Dr Bahena will check labs first and see if we can adjust medications -discussed ER for worsening symptoms (shortness of breath, chest pain, etc). Patient verbalized understanding of plan. Cough -suspect due to uncontrolled afib -continue to monitor . Hypertension - well controlled - continue with current medications, continue with no added salt diet. Pt has been encouraged to exercise daily. The pt has been advised to call the office if there are any acute concerns about change in blood pressure readings at home. Atrial Fibrillation - pt on chronic anticoagulation and is currently rate controlled. The pt is to have labs done as appropriate to monitor medication levels and is to report if they start to feel as if their heart rate is becoming uncontrolled. . Hypertension - well controlled - continue with current medications, continue with no added salt diet. Pt has been encouraged to exercise daily. The pt has been advised to call the office if there are any acute concerns about change in blood pressure readings at home. Hypothyroidism - pt with chronic hypothyroidism, continue with current medication, will monitor pt to signs or symptoms of lack of adequate supplementation. Pt is to continue with current dose of medication unless directed otherwise. Check labs at regular intervals q 3 months or q 6 months based on previous levels of control. Esophageal Reflux - the patient has been counseled against excessive intake of caffeine, spicy foods, peppermint, and cinnamon - all of which can exacerbate esophageal reflux. The patient is to take medications as prescribed and call the office if the symptoms are not improving. switch to tatiana . URI/ALLERGIES- recommended pt to use allergy medication as prescribed. Pt has been counseled as to the appropriate use of the medication. Pt to call if allergy symptoms are not controlled with the medication. If using nasal spray, instructions as follows: Nasal spray- use twice daily, one spray per nostril twice daily, after 30 minutes, rinse out nose with saline spray.. Use opposite hand per nostril to spray in the nasal steroid allergy spray. . Allergies - chronic - recommended pt to use allergy medication as prescribed. Pt has been counseled as to the appropriate use of the medication. Pt to call if allergy symptoms are not controlled with the medication. If using nasal spray, instructions as follows: Nasal spray- use twice daily, one spray per nostril twice daily, after 30 minutes, rinse out nose with saline spray.. Use opposite hand per nostril to spray in the nasal steroid allergy spray. URI - Pt advised to increase fluids, vitamin C. Discussed natural and expected course of this diagnosis and need to alert me if symptoms do not follow expected course, or if any worse. RX sent to patient's pharmacy. . Hand pain with arthritis - Raynaud syndrome - discussed with pt - RX for Voltaren gel sent to the pharmacy. continue with amlodipine. Elevated digoxin level - pt was recommended to have her digoxin rechecked in 2 weeks, and to decrease her digoxin dose to one pill daily.. Elevated digoxin level - pt was recommended to have her digoxin rechecked in 2 weeks, and to decrease her digoxin dose to one pill daily. Inflammatory arthritis - recommended to check for gout since it is the thumb on her right hand that is inflammed, we will call her to let her know if there are any changes that need to be made. Atrial Fibrillation - pt on chronic anticoagulation and is currently rate controlled. The pt is to have labs done as appropriate to monitor medication levels and is to report if they start to feel as if their heart rate is becoming uncontrolled. . Atrial Fibrillation - pt on chronic anticoagulation and is currently rate controlled. The pt is to have labs done as appropriate to monitor medication levels and is to report if they start to feel as if their heart rate is becoming uncontrolled. Allergies - chronic - recommended pt to use allergy medication as prescribed. Pt has been counseled as to the appropriate use of the medication. Pt to call if allergy symptoms are not controlled with the medication. If using nasal spray, instructions as follows: Nasal spray- use twice daily, one spray per nostril twice daily, after 30 minutes, rinse out nose with saline spray.. Use opposite hand per nostril to spray in the nasal steroid allergy spray. Recommended pt to continue with physical therapy for general osteoarthritis and osteoporosis. pt to increase vitamin d to 2000 units daily recommended to increase iron containing foods. dr will have staff call hospital to see if pneumonia vaccine was given in hospital. . Atrial Fibrillation - pt on chronic anticoagulation and is currently rate controlled. The pt is to have labs done as appropriate to monitor medication levels and is to report if they start to feel as if their heart rate is becoming uncontrolled. Hypertension - well controlled - continue with current medications, continue with no added salt diet. Pt has been encouraged to exercise daily. The pt has been advised to call the office if there are any acute concerns about change in blood pressure readings at home. Chronic Anticoagulant use - Pt has been counseled about the anticoagulant, need for serial monitoring, and need for the pt to alert the physician as to any new bruising, or acute bleeding. Theraputic goal for INR is between 2.0 and 3.5. Small bowel resection - pt to continue with slowly advancing diet, attempting to increase protein to gain back the weight that was lost during hospitalization. diflucan 150mg daily x 7 days - this is to treat a potential yeast infection in your throat from the symbicort. sometimes the steroid in the symbicort causes overgrowth of yeast - it is not common to see it in the throat at the vocal cords but can happen. if you notice that your voice is significantly better, call the office to let me know. if it is not better, then please call the office in one week and let me know so that we can refer you to Dr. Jeff for an ENT evaluation. stop the lasix on a scheduled basis and only take if you have significant swelling that the spironolactone is not helping. stop potassium chloride start spironolactone 25mg daily and let me know if this helps with your swelling. . diflucan 150mg daily x 7 days - this is to treat a potential yeast infection in your throat from the symbicort. sometimes the steroid in the symbicort causes overgrowth of yeast - it is not common to see it in the throat at the vocal cords but can happen. if you notice that your voice is significantly better, call the office to let me know. if it is not better, then please call the office in one week and let me know so that we can refer you to Dr. Jeff for an ENT evaluation. stop the lasix on a scheduled basis and only take if you have significant swelling that the spironolactone is not helping. stop potassium chloride start spironolactone 25mg daily and let me know if this helps with your swelling. boil ease or recticare - if having acute or worsening discomfort - call doctor - may need an antibiotic. MUCINEX 600mg twice daily for decrease in mucus in throat . boil ease or recticare - if having acute or worsening discomfort - call doctor - may need an antibiotic. MUCINEX 600mg twice daily for decrease in mucus in throat . Hypertension - well controlled - continue with current medications, continue with no added salt diet. Pt has been encouraged to exercise daily. The pt has been advised to call the office if there are any acute concerns about change in blood pressure readings at home. Hoarseness of voice - recommended a referral to dr. jeff - RE hoarseness. Atrial Fibrillation - pt on chronic anticoagulation and is currently rate controlled. The pt is to have labs done as appropriate to monitor medication levels and is to report if they start to feel as if their heart rate is becoming uncontrolled. use simethicone four times daily - after meals - if it does not help - in the next two weeks - call the office and we will do a ct scan of the abdomen and pelvis . Abdominal distension - use simethicone four times daily - after meals - if it does not help - in the next two weeks - call the office and we will do a ct scan of the abdomen and pelvis . Wound Instructions - Pt was instruced to keep the wound clean, wash with antibacterial soap, use triple antibiotic ointment, call if redness, pustular drainage, or any other acute conerns. . Atrial Fibrillation - pt on chronic anticoagulation and is currently rate controlled. The pt is to have labs done as appropriate to monitor medication levels and is to report if they start to feel as if their heart rate is becoming uncontrolled. Abdominal pain-resolved Gas/bloating-continue gas x-avoid gas forming foods-monitor symptoms OK TO RESTART VESICARE DAILY OK TO USE GAS X NEEDED FOR GAS AND BLOATING . Diarrhea-Continue with a healthy diet,start with bland advance as tolerated and I have recommended addition of probiotic to the diet when having loose bowel movements. Instructed patient to call if she develops abdominal pain, diarrhea does not resolve, etc. Patient verbalized understanding of plan. . Hypertension - well controlled - continue with current medications, continue with no added salt diet. Pt has been encouraged to exercise daily. The pt has been advised to call the office if there are any acute concerns about change in blood pressure readings at home. Atrial Fibrillation - pt on chronic anticoagulation and is currently rate controlled. The pt is to have labs done as appropriate to monitor medication levels and is to report if they start to feel as if their heart rate is becoming uncontrolled. Concern for her dizziness potentially being due to Afib - check an event monitor, results to be sent to cardiology. Flu shot today. . Medicare Exam - today we discussed the patients past history, immunizations, preventative exams/evaluations - colonoscopy, fecal occult blood testing, routine labs for renal function, glucose, cholesterol, osteoporosis evaluations, cardiovascular testing and cancer screenings. We have also discussed mental health and the signs/symptoms of depression. The patient was advised of home safety evaluations and the need to make sure that as the aging process continues, we need to be aware of different ways to make the home a safer place to reside. The patient has also been counseled that exercise is necessary - and of utmost importance as we age to help decrease fall risk and to maintain independence in the home. Today we discussed the need for the patient to create paperwork for Advanced directives as well as for the patient to provide this office with a copy of her DOP[employer] paperwork for health care surrogate. . Hypertension - well controlled - continue with current medications, continue with no added salt diet. Pt has been encouraged to exercise daily. The pt has been advised to call the office if there are any acute concerns about change in blood pressure readings at home. Atrial Fibrillation - pt on chronic anticoagulation and is currently rate controlled. The pt is to have labs done as appropriate to monitor medication levels and is to report if they start to feel as if their heart rate is becoming uncontrolled. Byron is to increase the lisinopril to 20mg twice daily (in morning and evening) use over the counter nasacort Nasal spray- use twice daily, one spray per nostril twice daily, after 30 minutes, rinse out nose with saline spray.. Use opposite hand per nostril to spray in the nasal steroid (nasacort) allergy spray. . Hypertension - uncontrolled - the patient's medications have been modified as documented in the visit note. The patient has been counseled to cut back on salt in diet for a no added salt diet, low fat diet, start an exercise program with low weight bearing exercises and higher aerobic activity for heart health. The patient is to check blood pressure readings as an outpatient and either fax, call, or email the readings to the office next week for practitioner to review. The pt is to call for acute concerns. Byron is to increase the lisinopril to 20mg twice daily (in morning and evening Allergies - chronic - recommended pt to use allergy medication as prescribed. Pt has been counseled as to the appropriate use of the medication. Pt to call if allergy symptoms are not controlled with the medication. If using nasal spray, instructions as follows: Nasal spray- use twice daily, one spray per nostril twice daily, after 30 minutes, rinse out nose with saline spray.. Use opposite hand per nostril to spray in the nasal steroid allergy spray. use over the counter nasacort Nasal spray- use twice daily, one spray per nostril twice daily, after 30 minutes, rinse out nose with saline spray.. Use opposite hand per nostril to spray in the nasal steroid (nasacort) allergy spray. Increase miralax to full dose daily. Constipation - uncontrolled - I have discussed with the patient the need for adequate fiber and water intake to facilitate soft, easily passed stools. The pt noted understanding of our conversation. I have given the patient a recipe for "power pudding" - equal parts, bran flakes, prune juice, and apple sauce. The pt is to call if symptoms not improved on this regimen. . Atrial Fibrillation - pt on chronic anticoagulation and is currently rate controlled. The pt is to have labs done as appropriate to monitor medication levels and is to report if they start to feel as if their heart rate is becoming uncontrolled. Raynaud syndrome - discussed treatment options with the patient - need to start on amlodipine 5mg 1/2 pill daily - keep heat on fingers - and toes - discussed need to keep hands warm during the winter. Sebaceous cyst of vaginal tissue - advised pt that this is not cancerous and she needs to let me know if it enlarges greatly as it would need to be surgically removed. doctor will refer to Dr. Joel Collins - for nonsurgical intervention for potential electrical stimulation/training of pelvic floor muscles - for strengthening - can start on the treatment when you get back from [place] - will also ask him about doing a cystoscopy to look into bladder to see if there is any bladder irritation. keep using the premarin - use about 25Cent size of cream onto finger to apply to urethra and do this three times weekly. . Urinary incontinence and recurrent UTI's - doctor will refer to Dr. Joel Collins - for nonsurgical intervention for potential electrical stimulation/training of pelvic floor muscles - for strengthening - can start on the treatment when you get back from [place] - will also ask him about doing a cystoscopy to look into bladder to see if there is any bladder irritation. keep using the Premarin - use about 25Cent size of cream onto finger to apply to urethra and do this three times weekly. . Hematuria-positive blood on UA today-plan to culture-discussed natural and expected course of this diagnosis and to alert me if symptoms do not follow expected course, or if any worse. Avoid tub baths, restrictive underwear, etc. Patient verbalized understanding of plan. Yeast infectin-RX for diflucan sent to patient's pharmacy Atrial Fibrillation - pt on chronic anticoagulation and is currently rate controlled. The pt is to have labs done as appropriate to monitor medication levels and is to report if they start to feel as if their heart rate is becoming uncontrolled. strep swab daily anti histamine . Pharyngitis-Discussed natural and expected course of this diagnosis and need to alert me if symptoms do not follow expected course, or if any worse. Recommended salt water gargles as needed for pain. Tylenol/motrin as needed for fever/discomfort. stop mucinex . Hypertension - well controlled - continue with current medications, continue with no added salt diet. Pt has been encouraged to exercise daily. The pt has been advised to call the office if there are any acute concerns about change in blood pressure readings at home. flu shot today Hemorrhoids - continue with rx for prn steroid ointment Return in 10 days for follow up UA. Start levaquin daily for the next 7 days. Take a probiotic twice daily while on the antibiotic. Okay to increase vesicare to 10mg daily. Start after your infection resolves and monitor symptoms. Check labs today-cbc, cmp-we will call you with the results. Monitor your blood pressure at home and record. Bring in your readings to your next appointment, or as directed. Call for chest pain, shortness of breath, headaches, or other concerns. . Urinary Tract Infection-discussed natural and expected course of this diagnosis and to alert me if symptoms do not follow expected course, or if any worse. UA positive for infection today in the office-plan to send for culture and will call patient with results. RX sent to patient's pharmacy. Avoid tub baths, restrictive underwear, etc. Recommend patient start on probiotic while taking the antibiotic to prevent diarrhea. Patient verbalized understanding of plan. Hypertension - elevated today-monitor closely at home and call tomorrow with readings. The patient has been counseled to cut back on salt in diet for a no added salt diet, low fat diet, start an exercise program with low weight bearing exercises and higher aerobic activity for heart health. The patient is to check blood pressure readings as an outpatient and either fax, call, or email the readings to the office next week for practicioner to review. The pt is to call for acute concerns. Urge incontinence -Pt has urge incontinence - the patient has been counseled about potential triggers for increase in sensation of the urgency - the pt has been counseled to avoid caffinated products, spicy products, and to urinate every 2-3 hours to prevent the incontinence associated with the urgency. Pt is to continue with current treatment plan and call if symptoms worsen-increase vesicare to 10mg daily after acute infection resolves. . Hypertension - well controlled - continue with current medications, continue with no added salt diet. Pt has been encouraged to exercise daily. The pt has been advised to call the office if there are any acute concerns about change in blood pressure readings at home. DUE TO ITCHING, WE WILL HAVE BYRON STOP HER LISINOPRIL/HCTZ COMBINATION PILL AND ONLY USE A NEW SCRIPT FOR LISINOPRIL.. Hopefully, the pruritis will improve off of the combination pill.. Pruritis- pt to look at home for evidence of bedbugs, call if there is evidence. . Abdominal pain-N/V-patient acutely ill and requires admission to the hospital for further work up-Dr. Bahena in to evalaute patient as well-Will keep patient NPO for now and plan to check CT scan as well as labs and start patient on intravenous fluids. Patient verbalized understanding of plan. Doctor's eval of the patient - I, Dr. Bahena, personally evaluated the patient with the nurse practicioner. I have reviewed the patient's chart, I have reviewed the patient's past medical history, problem list, medication list, and personal history. I agree with the documentation by the nurse practicioner in the HPI, physical exam, and the assessment and plan. Admission to Hospital - Pt has diagnosis of acute illness necessitating hospital admission from the clinic. I have discussed the diagnosis and need for further work-up and acute hospital stay for the patient's health benefit. I suspect a small bowel obstruction, pt admitted, ct scan and consult by surgeon of pt choice, pt on pradaxa, will have to start heparin protocol. . Abdominal pain-N/V-patient acutely ill and requires admission to the hospital for further work up-Dr. Bahena in to evalaute patient as well-Will keep patient NPO for now and plan to check CT scan as well as labs and start patient on intravenous fluids. Patient verbalized understanding of plan. INCREASE YOUR LISINOPRIL 10MG TO 2 PILLS UNTIL YOU RUN OUT THEN FILL NEXT PRESCRIPTION FOR LISINOPRIL 20MG 1 TAB DAILY. . Hypertension - uncontrolled - the patient's medications have been modified as documented in the visit note. The patient has been counseled to cut back on salt in diet for a no added salt diet, low fat diet, start an exercise program with low weight bearing exercises and higher aerobic activity for heart health. The patient is to check blood pressure readings as an outpatient and either fax, call, or email the readings to the office next week for practicioner to review. The pt is to call for acute concerns. Bruising-left leg-no injuury-on coumadin-check PT/INR get some hylands for leg cramps. Hypertension - well controlled - continue with current medications, continue with no added salt diet. Pt has been encouraged to exercise daily. The pt has been advised to call the office if there are any acute concerns about change in blood pressure readings at home. Atrial Fibrillation - pt on chronic anticoagulation and is currently rate controlled. The pt is to have labs done as appropriate to monitor medication levels and is to report if they start to feel as if their heart rate is becoming uncontrolled. Hypothyroidism - pt with chronic hypothyroidism, continue with current medication, will monitor pt to signs or symptoms of lack of adequate supplementation. Pt is to continue with current dose of medication unless directed otherwise. Check labs at regular intervals wither q 3 months or q 6 months based on previous levels of control. If using nasal spray, instructions as follows: Nasal spray- use twice daily, one spray per nostril twice daily, after 30 minutes, rinse out nose with saline spray.. Use opposite hand per nostril to spray in the nasal steroid allergy spray. Get Sweet oil and put 2 drops in each ear daily for 5 days, call the office in a few days if the ringing is still there and we will have you come in to have your ears washed out. . Cerumen impaction - cerumen is hard and dry - will have pt use sweet oil drops and return to clinic for assistance with removing cerumen. Pt is to notify clinic if symptoms do not improve, or with any concerns. Allergies - chronic - recommended pt to use allergy medication as prescribed. Pt has been counseled as to the appropriate use of the medication. Pt to call if allergy symptoms are not controlled with the medication. If using nasal spray, instructions as follows: Nasal spray- use twice daily, one spray per nostril twice daily, after 30 minutes, rinse out nose with saline spray.. Use opposite hand per nostril to spray in the nasal steroid allergy spray. pt to have esr, crp, tsh, free t4, and albumin, prealbumin, chem 12, vitamin D . Atrial Fibrillation - pt on chronic anticoagulation and is currently rate controlled. The pt is to have labs done as appropriate to monitor medication levels and is to report if they start to feel as if their heart rate is becoming uncontrolled. HTN - controlled - no change in medications. Pt has fatigue, afib, weight loss, hx second hand smoke exposure,and dyspnea on exertion - will ask [facility] Patient do an overnight oxygen study on [place] as she has cardiac history, weight loss, and nocturnal hypoxemia may be a part of her weight loss and fatigue. . Hematuria/Urethritis - Pt uses Premarin for vaginal dryness, but has not been using it recently. Pt is also on Coumadin for A. Fib. Antibiotic electronically prescribed to pt's pharmacy of choice. Use Premarin as directed to prevent vaginal dryness and irritation. Will check CBC and PT INR. Pt to call if symptoms do not improve. . Cystocele and rectocele - pt assured of the lack of mass causing the obstruction, she has been advised to lay on bed to insert her medication or lean back on toilet seat to help decrease the pressure in her pelvis and thus hopefully aide the insertion of the medication vaginally. . Medicare Exam - today we discussed the patients past history, immunizations, preventative exams/evaluations - colonoscopy, fecal occult blood testing, routine labs for renal function, glucose, cholesterol, osteoporosis evaluations, cardiovascular testing and cancer screenings. We have also discussed mental health and the signs/symptoms of depression. The patient was advised of home safety evaluations and the need to make sure that as the aging process continues, we need to be aware of different ways to make the home a safer place to reside. The patient has also been counseled that exercise is necessary - and of utmost importance as we age to help decrease fall risk and to maintain independece in the home. Today we discussed the need for the patient to create paperwork for Advanced directives as well as for the patient to provide this office with a copy of her DOP[employer] paperwork for health care surrogate. . Hypertension - well controlled - continue with current medications, continue with no added salt diet. Pt has been encouraged to exercise daily. The pt has been advised to call the office if there are any acute concerns about change in blood pressure readings at home. Hoarseness- recommended pt to wait to have eval by Dr. Jeff until pt is seen by Dr. Samantha Allen - symptoms stable - continue current meds - no change in symptoms. PT HAS BEEN INSTRUCTED TO START USING HER HUMIDIFIER FOR HER DRY MOUTH AND DRY NOSE.. Atrial Fibrillation - pt on chronic anticoagulation and is currently rate controlled. The pt is to have labs done as appropriate to monitor medication levels and is to report if they start to feel as if their heart rate is becoming uncontrolled. Hypertension - well controlled - continue with current medications, continue with no added salt diet. Pt has been encouraged to exercise daily. The pt has been advised to call the office if there are any acute concerns about change in blood pressure readings at home. seborrheic Keratosis on left breast . Abdominal pain - improving - recommended bland diet, monitor abdominal pain, if worsens pt is to call the office JANET or go to the emergency room if the pain is significantly increasing. Atrial Fibrillation - pt on chronic anticoagulation and is currently rate controlled. The pt is to have labs done as appropriate to monitor medication levels and is to report if they start to feel as if their heart rate is becoming uncontrolled. . Wound care - continue with dressing changes, daily use of bactroban - monitor symptoms.
[2018-12-10 15:26] VITALS: BP 110/60
--- OUTSIDE RECORDS SUMMARY | 2018-12-10 15:52 | XMS REPORT | CCD ---
Author Author Laura Colin Organization Karma Bahena MD, [facility] Address [address] [place] [address] Phone Care Team Providers Care Insurance Follow Up Rep Name Role Phone Karma Bahena PP Unavailable CCM Unavailable Summary Purpose Interface Exchange Insurance Providers Payer name Policy type / Coverage type Covered constitution party ID Effective Begin Date Effective End Date WPS Medicare Part B Medicare Part B [id number] 2018 Unknown AARP Medicare Part B [id number] 2018 Unknown Family history Sister Diagnosis Age [...] Unknown House 03/15/[address]: 518775098 Never smoker 03/15/2011 Has the patient ever used illegal drugs? Unknown Has never used illegal drugs 03/15/2011 Allergies, Adverse Reactions, Alerts Substance Reaction Codes Entered Date Inactivated Date Status BACTINE RxNorm: 698468 03/04/2011 No Inactive Date Active MICONAZOLE RxNorm: 6932 03/04/2011 No Inactive Date Active NEOSPORIN RxNorm: 219634 03/04/2011 No Inactive Date Active NEOMYCIN RxNorm: 7299 03/04/2011 No Inactive Date Active CORTISPORIN RxNorm: 02393 03/04/2011 No Inactive Date Active bactrim RxNorm: 004322 03/13/2012 No Inactive Date Active AUGMENTIN diarrhea RxNorm: 214925 2016 No Inactive Date Active METRONIDAZOLE Unknown [...] 401.9 ICD-10: I10 Active 12/25/2013 Unknown 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 ICD-9: V58.83 ICD-10: Z79.899 [...] 706.2 ICD-10: L72.0 Active 02/01/2016 Unknown Other [facility] (current) drug therapy ICD-9: V58.69 ICD-10: Z79.899 [...] ICD-9: 401.9 ICD-10: I10 12/25/2013 Active 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 ICD-9: V58.83 ICD-10: Z79.899 [...] ICD-9: 706.2 ICD-10: L72.0 02/01/2016 Active Other [facility] (current) drug therapy ICD-9: V58.69 ICD-10: Z79.899 [...] Start Date Stop Date Status Fill Instructions digoxin 125 mcg tablet RxNorm: 998679 Tablet(s) every other day 12/06/2018 11/30/2019 Active Keflex 500 mg capsule RxNorm: 764933 1 Capsule(s) PO TID 11/30/2018 12/06/2018 Inactive pantoprazole 40 mg tablet,delayed release RxNorm: 624607 1 TABLET(S) PO DAILY 11/29/2018 11/23/2019 Active amlodipine 5 mg tablet RxNorm: 278418 Tablet(s) 1/2 TABLET(S) PO DAILY MAY TAKE AN EXTRA 1/2 PILL AT THE END OF THE DAY IF BLOOD PRESSURE IS ELEVATED OVER 140 11/29/2018 05/27/2019 Active cyclobenzaprine 5 mg tablet RxNorm: 623390 1/2 Tablet(s) PO TID TABLET(S) 1/2 TABLET(S) PO Q8 NEEDED MUSCLE SPASMS 10/31/2018 04/28/2019 Active Imvexxy Starter Pack 4 mcg vaginal insert, dose pack RxNorm: 0398969 1 dose VAG BIW 10/31/2018 01/28/2019 Active Voltaren 1 % topical gel RxNorm: 034492 2 Gram(s) TOP QID on left shoulder and bilateral hands 10/17/2018 05/14/2019 Active PA APPROVED UNTIL JUL 09 2019 [id number] amlodipine 5 mg tablet RxNorm: 131179 1/2 TABLET(S) PO DAILY MAY TAKE AN EXTRA 1/2 PILL AT THE END OF THE DAY IF BLOOD PRESSURE IS ELEVATED OVER 140 10/15/2018 11/28/2018 Inactive Patient requests 90 days supply Voltaren 1 % topical gel RxNorm: 937388 2 Gram(s) TOP QID on left shoulder and bilateral hands 10/09/2018 10/16/2018 Inactive levothyroxine 75 mcg tablet RxNorm: 490630 1 Tablet(s) PO daily 09/19/2018 01/16/2019 Active Keflex 500 mg capsule RxNorm: 019921 1 Capsule(s) PO TID 09/12/2018 09/18/2018 Inactive spironolactone 25 mg tablet RxNorm: 097028 1 Tablet(s) PO BID 08/14/2018 11/06/2019 Active see new directions and quantity cyclobenzaprine 5 mg tablet RxNorm: 460691 Tablet(s) TABLET(S) 1/2 TABLET(S) PO Q8 NEEDED MUSCLE SPASMS 08/14/2018 10/30/2018 Inactive Nitro-Bid 2 % transdermal ointment RxNorm: 799841 1 dime size amount TD BID to fingers and toes 08/14/2018 09/12/2018 Inactive cyclobenzaprine 5 mg tablet RxNorm: 060073 TABLET(S) 1/2 TABLET(S) PO Q8 NEEDED MUSCLE SPASMS 08/06/2018 08/13/2018 Inactive amlodipine 5 mg tablet RxNorm: 965215 1/2 Tablet(s) PO daily may take an extra 1/2 pill at the end of the day if blood pressure is elevated over 140 07/26/2018 10/14/2018 Inactive cefdinir 300 mg capsule RxNorm: 390289 1 Capsule(s) PO BID 06/20/2018 06/26/2018 Inactive cefdinir 300 mg capsule RxNorm: 996731 1 Capsule(s) PO BID 06/20/2018 06/19/2018 Inactive metoprolol succinate ER 50 mg tablet,extended release 24 hr RxNorm: 430074 1.5 Tablet(s) daily 06/15/2018 03/11/2019 Active sucralfate 100 mg/mL oral suspension RxNorm: 076705 2 Teaspoon(s) PO TID as needed with reflux symptoms 06/04/2018 No Stop Date Active Vesicare 10 mg tablet RxNorm: 449004 1 TABLET(S) PO EVERY OTHER DAY 05/14/2018 01/08/2019 Active levothyroxine 50 mcg tablet RxNorm: 247128 1 TABLET(S) PO DAILY 04/30/2018 09/18/2018 Inactive Patient requests 90 days supply spironolactone 25 mg tablet RxNorm: 539548 1 Tablet(s) PO daily 03/14/2018 08/13/2018 Inactive levothyroxine 50 mcg tablet RxNorm: 600158 1 Tablet(s) PO daily 02/01/2018 04/29/2018 Inactive Eliquis 2.5 mg tablet RxNorm: 8812493 1 Tablet(s) PO BID 01/31/2018 02/20/2018 Inactive levothyroxine 50 mcg tablet RxNorm: 381848 1 Tablet(s) PO daily 01/31/2018 01/31/2018 Inactive Eliquis 2.5 mg tablet RxNorm: 1014903 TAKE 1 TABLET BY MOUTH TWICE DAILY 01/23/2018 07/21/2018 Inactive metoprolol succinate ER 50 mg tablet,extended release 24 hr RxNorm: 558445 1 TABLET(S) PO DAILY 01/23/2018 01/30/2018 Inactive metoprolol succinate ER 50 mg tablet,extended release 24 hr RxNorm: 737488 1.5 Tablet(s) daily 01/22/2018 06/14/2018 Inactive lisinopril 20 mg tablet RxNorm: 653254 1/2 Tablet(s) daily 01/19/2018 01/21/2018 Inactive Patient requests 90 days supply Singulair 10 mg tablet RxNorm: 271152 TAKE 1 TABLET BY MOUTH AT BEDTIME 01/18/2018 04/17/2018 Inactive Patient requests 90 days supply Singulair 10 mg tablet RxNorm: 199882 Tablet(s) PO 01/17/2018 01/17/2018 Inactive digoxin 125 mcg tablet RxNorm: 721488 1 TABLET(S) PO DAILY 01/03/2018 12/05/2018 Inactive Symbicort 160 mcg-4.5 mcg/actuation HFA aerosol inhaler RxNorm: 1926604 2 Puff(s) INH BID 12/14/2017 04/12/2018 Inactive please dispense an aerochamber for patient as well as her symbicort cyclobenzaprine 5 mg tablet RxNorm: 976288 Tablet(s) 1/2 TABLET(S) PO Q8 NEEDED MUSCLE SPASMS 12/14/2017 08/05/2018 Inactive pantoprazole 40 mg tablet,delayed release RxNorm: 598765 1 Tablet(s) PO daily 12/14/2017 11/28/2018 Inactive ProAir RespiClick 90 mcg/actuation breath activated RxNorm: 3006756 1-2 INH QID as needed shortness of breath 12/14/2017 07/11/2018 Inactive cyclobenzaprine 5 mg tablet RxNorm: 149470 1/2 TABLET(S) PO Q8 NEEDED MUSCLE SPASMS 12/08/2017 12/13/2017 Inactive betamethasone dipropionate 0.05 % topical ointment RxNorm: 333825 1 Application TOP TID use topically on the rectal tissue three times daily x 1 week then as needed 11/13/2017 No Stop Date Active Premarin 0.625 mg/gram vaginal cream RxNorm: 831594 1/2 GRAM(S) VAG TIW 11/13/2017 10/30/2018 Inactive cyclobenzaprine 5 mg tablet RxNorm: 103240 1/2 TABLET(S) PO Q8 NEEDED MUSCLE SPASMS 10/17/2017 12/07/2017 Inactive Vesicare 10 mg tablet RxNorm: 826587 1 Tablet(s) PO every other day 10/17/2017 04/14/2018 Inactive lisinopril 20 mg tablet RxNorm: 346527 1 TABLET(S) PO DAILY 10/02/2017 01/18/2018 Inactive Patient requests 90 days supply levothyroxine 75 mcg tablet RxNorm: 356564 1 TABLET(S) PO DAILY 09/25/2017 01/30/2018 Inactive spironolactone 25 mg tablet RxNorm: 713023 1 TABLET(S) PO DAILY 08/16/2017 03/13/2018 Inactive cyclobenzaprine 5 mg tablet RxNorm: 380464 1/2 TABLET(S) PO Q8 NEEDED MUSCLE SPASMS 08/16/2017 10/16/2017 Inactive Eliquis 2.5 mg tablet RxNorm: 2514776 TAKE 1 TABLET BY MOUTH TWICE DAILY 07/26/2017 01/21/2018 Inactive cyclobenzaprine 5 mg tablet RxNorm: 542431 1/2 Tablet(s) PO Q8 as needed muscle spasms 06/19/2017 08/15/2017 Inactive lisinopril 20 mg tablet RxNorm: 854419 1 TABLET(S) PO DAILY 06/12/2017 10/01/2017 Inactive metoprolol succinate ER 50 mg tablet,extended release 24 hr RxNorm: 140548 1 TABLET(S) PO DAILY 04/07/2017 01/01/2018 Inactive spironolactone 25 mg tablet RxNorm: 026358 1 Tablet(s) PO daily 03/27/2017 03/13/2018 Inactive acyclovir 800 mg tablet RxNorm: 360971 1 Tablet(s) PO TID 03/21/2017 03/30/2017 Inactive acyclovir 800 mg tablet RxNorm: 150040 1 Tablet(s) PO TID 03/21/2017 03/20/2017 Inactive levothyroxine 75 mcg tablet RxNorm: 511947 1 Tablet(s) PO daily 03/16/2017 09/11/2017 Inactive spironolactone 25 mg tablet RxNorm: 800530 1 TABLET(S) PO DAILY 02/09/2017 03/26/2017 Inactive lisinopril 20 mg tablet RxNorm: 930082 1 TABLET(S) PO DAILY 01/02/2017 05/31/2017 Inactive Zithromax Z-Claudio 250 mg tablet RxNorm: 884758 1 Tablet(s) PO UD 11/29/2016 12/03/2016 Inactive ZPACK Keflex 500 mg capsule RxNorm: 457242 1 Capsule(s) PO TID 11/23/2016 12/02/2016 Inactive guaifenesin 400 mg tablet RxNorm: 604249 1 Tablet(s) PO Q6 as needed 11/23/2016 11/27/2016 Inactive omeprazole 40 mg capsule,delayed release RxNorm: 333706 1 Capsule(s) PO QPM 11/02/2016 12/13/2017 Inactive digoxin 125 mcg tablet RxNorm: 042910 1 TABLET(S) PO DAILY 10/27/2016 07/23/2017 Inactive cyclobenzaprine 5 mg tablet RxNorm: 214613 1/2 Tablet(s) PO Q8 PRN 10/25/2016 06/18/2017 Inactive prn muscle spasms Augmentin 500 mg-125 mg tablet RxNorm: 956310 1 Tablet(s) PO BID 10/24/2016 11/02/2016 Inactive Lasix 20 mg tablet RxNorm: 266886 Tablet(s) PRN one to two times a week if needed 07/27/2016 No Stop Date Active Patient requests 90 days supply spironolactone 25 mg tablet RxNorm: 846695 1 Tablet(s) PO daily 07/27/2016 02/08/2017 Inactive Diflucan 150 mg tablet RxNorm: 973018 1 Tablet(s) PO daily 07/27/2016 08/02/2016 Inactive lisinopril 20 mg tablet RxNorm: 081440 1 Tablet(s) PO daily 07/12/2016 01/01/2017 Inactive Lasix 20 mg tablet RxNorm: 995447 1 TABLET(S) PO EVERY OTHER DAY EVERY OTHER DAY 06/10/2016 07/26/2016 Inactive Patient requests 90 days supply potassium chloride ER 10 mEq capsule,extended release RxNorm: 444995 1 CAPSULE(S) PO EVERY OTHER DAY 06/10/2016 07/26/2016 Inactive Patient requests 90 days supply potassium chloride ER 10 mEq capsule,extended release RxNorm: 925468 1 Capsule(s) PO every other day 06/09/2016 06/09/2016 Inactive Lasix 20 mg tablet RxNorm: 280355 1 Tablet(s) PO every other day every other day 06/09/2016 06/09/2016 Inactive levothyroxine 88 mcg tablet RxNorm: 703216 1 Tablet(s) PO daily 05/11/2016 11/06/2016 Inactive Premarin 0.625 mg/gram vaginal cream RxNorm: 682133 1/2 Gram(s) VAG TIW 03/24/2016 03/18/2017 Inactive metoprolol succinate ER 50 mg tablet,extended release 24 hr RxNorm: 448908 1 Tablet(s) PO daily 03/24/2016 03/18/2017 Inactive pantoprazole 40 mg tablet,delayed release RxNorm: 550307 1 Tablet(s) PO daily 02/08/2016 11/01/2016 Inactive betamethasone dipropionate 0.05 % topical ointment RxNorm: 753684 1 Application TOP TID use topically on the rectal tissue three times daily x 1 week then as needed 02/02/2016 11/12/2017 Inactive pantoprazole 40 mg tablet,delayed release RxNorm: 220657 1 Tablet(s) PO daily 2016 02/07/2016 Inactive alprazolam 0.25 mg tablet RxNorm: 604829 1 Tablet(s) PO Q6 as needed 12/04/2015 No Stop Date Active Vesicare 10 mg tablet RxNorm: 906052 1 Tablet(s) PO every other day 11/03/2015 10/16/2017 Inactive alprazolam 0.25 mg tablet RxNorm: 087361 1 Tablet(s) PO Q6 as needed 11/03/2015 12/03/2015 Inactive Premarin 0.625 mg/gram vaginal cream RxNorm: 135664 1/2 Gram(s) VAG TIW 11/03/2015 03/23/2016 Inactive levothyroxine 88 mcg tablet RxNorm: 592020 1 Tablet(s) PO daily 11/03/2015 05/10/2016 Inactive Diflucan 150 mg tablet RxNorm: 847898 1 Tablet(s) PO daily 10/19/2015 10/25/2015 Inactive cetirizine 10 mg chewable tablet RxNorm: 5368296 1 Tablet(s) PO daily 10/13/2015 11/11/2015 Inactive cetirizine 10 mg capsule RxNorm: 0280261 1 Capsule(s) PO daily 10/13/2015 11/11/2015 Inactive Vesicare 10 mg tablet RxNorm: 360872 1/2 TABLET(S) PO BID 09/21/2015 11/02/2015 Inactive betamethasone dipropionate 0.05 % topical ointment RxNorm: 233951 1 Application TOP TID use topically on the rectal tissue three times daily x 1 week then as needed 09/15/2015 02/01/2016 Inactive lisinopril 20 mg tablet RxNorm: 842480 1 Tablet(s) PO daily 09/01/2015 07/11/2016 Inactive digoxin 125 mcg tablet RxNorm: 929089 1 Tablet(s) PO daily 09/01/2015 08/25/2016 Inactive Augmentin 500 mg-125 mg tablet RxNorm: 299481 1 Tablet(s) PO TID 05/26/2015 06/04/2015 Inactive Pyridium 200 mg tablet RxNorm: 3845443 1 Tablet(s) PO TID 05/26/2015 05/27/2015 Inactive levothyroxine 88 mcg tablet RxNorm: 083568 1 Tablet(s) PO daily except 1/2 pill on monday and 05/07/2015 11/02/2015 Inactive digoxin 125 mcg tablet RxNorm: 124104 1 Tablet(s) PO daily 05/07/2015 08/31/2015 Inactive lisinopril 20 mg tablet RxNorm: 855507 1 TABLET(S) PO BID 04/13/2015 09/01/2015 Inactive Coumadin 1 mg tablet RxNorm: 560655 1 TABLET(S) PO DAILY 03/31/2015 08/31/2015 Inactive Coumadin 2 mg tablet RxNorm: 099554 4MG IN AM AND 1MG AT NIGHT TABLET(S) PO DAILY DIRECTED. 03/31/2015 08/31/2015 Inactive levothyroxine 88 mcg tablet RxNorm: 788636 1 Tablet(s) PO daily 03/23/2015 05/06/2015 Inactive alprazolam 0.25 mg tablet RxNorm: 599025 Tablet(s) PO 03/23/2015 04/06/2015 Inactive levothyroxine 88 mcg tablet RxNorm: 103634 1 Tablet(s) PO daily 01/28/2015 03/22/2015 Inactive levothyroxine 88 mcg tablet RxNorm: 328651 1 Tablet(s) PO daily 01/28/2015 01/27/2015 Inactive diltiazem ER 120 mg capsule,extended release RxNorm: 285709 1 Capsule(s) PO BID patient would like 4 months at a time 01/06/2015 09/28/2015 Inactive digoxin 125 mcg tablet RxNorm: 559674 Tablet(s) 1 TABLET(S) PO DAILY 12/24/2014 12/23/2014 Inactive pt will be paying [employer] (On $4 list)Patient requests 90 days supply digoxin 125 mcg tablet RxNorm: 850123 Tablet(s) 1 TABLET(S) PO DAILY M W F Sat and 2 tabs on T TH 12/24/2014 05/06/2015 Inactive pt will be paying [employer] (On $4 list)Patient requests 90 days supply dicyclomine 20 mg tablet RxNorm: 539563 1 Tablet(s) PO daily 11/17/2014 08/31/2015 Inactive one ac dinner and up to tid prn levothyroxine 88 mcg tablet RxNorm: 096520 1 Tablet(s) PO daily 11/03/2014 01/27/2015 Inactive Premarin 0.625 mg/gram vaginal cream RxNorm: 313309 1 APPLICATION VAG 1 APPLICATOR PER VAGINA 3 TIMES PER WEEK 11/03/2014 07/30/2015 Inactive digoxin 125 mcg tablet RxNorm: 925153 1 TABLET(S) PO DAILY 09/29/2014 12/23/2014 Inactive pt will be paying [employer] (On $4 list)Patient requests 90 days supply digoxin 125 mcg tablet RxNorm: 261690 1 TABLET(S) PO DAILY 07/11/2014 04/06/2015 Inactive Vesicare 10 mg tablet RxNorm: 663479 1/2 Tablet(s) PO BID 05/20/2014 05/14/2015 Inactive Levaquin 500 mg tablet RxNorm: 823145 1 Tablet(s) PO daily 05/06/2014 05/08/2014 Inactive take probiotic BID while on ABT Levaquin 500 mg tablet RxNorm: 123875 1 Tablet(s) PO daily 05/02/2014 05/05/2014 Inactive take probiotic BID while on ABT diltiazem ER 120 mg capsule,extended release RxNorm: 722950 1 Capsule(s) PO BID patient would like 4 months at a time 04/29/2014 2015 Inactive Vesicare 10 mg tablet RxNorm: 524010 1/2 Tablet(s) PO BID 04/29/2014 05/19/2014 Inactive lisinopril 20 mg tablet RxNorm: 618511 1 Tablet(s) PO BID 03/20/2014 03/14/2015 Inactive diltiazem 90 mg tablet RxNorm: 483810 1/2 TABLET(S) PO QPM 03/04/2014 04/28/2014 Inactive also 180 q am diltiazem ER 120 mg capsule,extended release RxNorm: 491060 1 Capsule(s) PO daily patient would like 4 months at a time 01/29/2014 04/28/2014 Inactive Vesicare 10 mg tablet RxNorm: 851564 1 Tablet(s) PO QHS 01/14/2014 04/28/2014 Inactive Coumadin 2 mg tablet RxNorm: 992012 4mg in AM and 1mg at night Tablet(s) PO daily as directed. 12/25/2013 03/30/2015 Inactive Metanx 3 mg-35 mg-2 mg tablet RxNorm: 1 Tablet(s) PO daily 12/25/2013 11/02/2015 Inactive digoxin 125 mcg tablet RxNorm: 132481 1 Tablet(s) PO daily 12/25/2013 09/28/2014 Inactive pt will be paying [employer] (On $4 list) Coumadin 2 mg tablet RxNorm: 286455 7.5 wed 5mg other Tablet(s) PO as directed. 12/03/2013 12/24/2013 Inactive omeprazole 20 mg tablet,delayed release RxNorm: 821349 1 Tablet(s) PO BID 11/27/2013 04/28/2014 Inactive Coumadin 2 mg tablet RxNorm: 440382 5 mg daily Tablet(s) PO as directed. 11/26/2013 12/02/2013 Inactive 5 mg daily Xanax 0.25 mg tablet RxNorm: 440417 1 Tablet(s) PO Q6 PRN 11/11/2013 12/25/2013 Inactive alprazolam 0.25 mg tablet RxNorm: 813796 tablet oral 11/11/2013 03/22/2015 Inactive sucralfate 1 gram tablet RxNorm: 851262 1 Tablet(s) PO AC & HS 11/04/2013 11/03/2013 Inactive sucralfate 1 gram tablet RxNorm: 816189 1 Tablet(s) PO AC & HS 11/04/2013 01/02/2014 Inactive Synthroid 100 mcg tablet RxNorm: 885047 1 Tablet(s) PO daily 10/31/2013 10/25/2014 Inactive Synthroid 100 mcg tablet RxNorm: 614021 1 Tablet(s) PO daily 09/30/2013 10/29/2013 Inactive Vesicare 10 mg tablet RxNorm: 370735 1 Tablet(s) PO QHS 09/30/2013 01/13/2014 Inactive Lotemax 0.5 % eye ointment RxNorm: 6119285 ointment opht 09/06/2013 12/10/2013 Inactive levothyroxine 100 mcg tablet RxNorm: 478060 tablet oral 09/05/2013 11/02/2014 Inactive Synthroid 100 mcg tablet RxNorm: 125497 1 Tablet(s) PO daily 09/05/2013 09/29/2013 Inactive Prolia 60 mg/mL Sub-Q Syringe RxNorm: 404181 1 Milliliter(s) SQ 06/25/2013 11/02/2015 Inactive dicyclomine 20 mg tablet RxNorm: 830762 1 Tablet(s) PO daily 06/24/2013 06/18/2014 Inactive one ac dinner and up to tid prn omeprazole 20 mg tablet,delayed release RxNorm: 586317 1 Tablet(s) PO BID 06/24/2013 11/26/2013 Inactive Cipro 500 mg tablet RxNorm: 465935 1 Tablet(s) PO BID 06/20/2013 06/26/2013 Inactive diltiazem ER 120 mg capsule,extended release RxNorm: 652098 1 Capsule(s) PO daily patient would like 4 months at a time 06/03/2013 01/28/2014 Inactive Coumadin 2 mg tablet RxNorm: 636748 as directed Tablet(s) PO as directed. 05/29/2013 11/25/2013 Inactive 5 mg daily Synthroid 88 mcg tablet RxNorm: 498865 1 Tablet(s) PO daily 04/24/2013 04/23/2013 Inactive Synthroid 88 mcg tablet RxNorm: 361717 1 Tablet(s) PO daily 04/24/2013 07/28/2013 Inactive Premarin 0.625 mg/gram vaginal cream RxNorm: 095848 1 Application VAG 1 applicator per vagina 3 times per week 04/23/2013 04/17/2014 Inactive Influenza Virus Vaccine 0.5 mL RxNorm: IM 04/23/2013 04/23/2013 Inactive digoxin 125 mcg tablet RxNorm: 946892 1 Tablet(s) PO daily 02/20/2013 04/20/2013 Inactive pt will be paying [employer] (On $4 list) Digox 125 mcg tablet RxNorm: 9528082 tablet oral 02/13/2013 03/20/2014 Inactive digoxin 125 mcg tablet RxNorm: 384315 1 Tablet(s) PO daily 02/13/2013 02/19/2013 Inactive diltiazem 90 mg tablet RxNorm: 006504 1/2 Tablet(s) PO QPM 02/13/2013 02/07/2014 Inactive also 180 q am Levoxyl 75 mcg tablet RxNorm: 763512 1 Tablet(s) PO 01/16/2013 04/23/2013 Inactive Coumadin 2 mg tablet RxNorm: 734453 6mg daily except 3mg on wed and fri Tablet(s) PO 01/15/2013 05/28/2013 Inactive 5 mg daily Coumadin 2 mg tablet RxNorm: 448361 6mg daily Tablet(s) PO 12/21/2012 01/14/2013 Inactive 5 mg daily silver sulfadiazine 1 % Topical Cream RxNorm: 437877 TOP apply to affected area with each dressing change 12/19/2012 12/25/2013 Inactive cephalexin 500 mg tablet RxNorm: 646355 1 Tablet(s) PO TID 12/11/2012 12/17/2012 Inactive digoxin 125 mcg tablet RxNorm: 378821 1 Tablet(s) PO daily 10/30/2012 02/12/2013 Inactive digoxin 125 mcg tablet RxNorm: 091252 2 tab tue thurs one other days Tablet(s) PO daily 10/23/2012 10/29/2012 Inactive lisinopril 10 mg tablet RxNorm: 180114 1 Tablet(s) PO daily 10/17/2012 08/14/2013 Inactive Cipro 500 mg tablet RxNorm: 678912 1 Tablet(s) PO BID 09/13/2012 09/19/2012 Inactive Coumadin 1 mg tablet RxNorm: 119986 1 Tablet(s) PO daily 09/03/2012 09/02/2012 Inactive Coumadin 1 mg tablet RxNorm: 089266 1 Tablet(s) PO daily 09/03/2012 12/21/2012 Inactive Coumadin 2 mg tablet RxNorm: 373398 Tablet(s) PO 07/25/2012 12/20/2012 Inactive 5 mg daily digoxin 125 mcg tablet RxNorm: 948024 1 Tablet(s) PO daily 06/28/2012 10/22/2012 Inactive Coumadin 2 mg tablet RxNorm: 046312 Tablet(s) PO 06/27/2012 07/24/2012 Inactive 5mg daily except 4mg on monday Coumadin 2 mg tablet RxNorm: 499709 Tablet(s) PO 06/19/2012 06/26/2012 Inactive 5mg e wed thur sat sun4mg mon(has 2mg and 1 mg tab) digoxin 125 mcg tablet RxNorm: 705873 1 Tablet(s) PO daily 05/29/2012 06/27/2012 Inactive Coumadin 2 mg tablet RxNorm: 343300 Tablet(s) PO 05/15/2012 06/18/2012 Inactive 5mg tue thur sat sun4mg mon(has 2mg and 1 mg tab) Coumadin 2 mg tablet RxNorm: 158025 Tablet(s) PO 04/25/2012 05/14/2012 Inactive 5mg tue thru sat4mg mon sun(has 2mg and 1 mg tab) Metanx 3 mg-35 mg-2 mg tablet RxNorm: 1 Tablet(s) PO BID 04/18/2012 12/24/2013 Inactive dicyclomine 20 mg tablet RxNorm: 614204 1 Tablet(s) PO 04/18/2012 06/23/2013 Inactive one ac dinner and up to tid prn digoxin 125 mcg tablet RxNorm: 100751 Tablet(s) PO daily except .25 on Tuesdays and 04/09/2012 05/28/2012 Inactive omeprazole 20 mg tablet,delayed release RxNorm: 963410 1 Tablet(s) PO BID 04/09/2012 04/03/2013 Inactive digoxin 125 mcg tablet RxNorm: 364783 1 Tablet(s) PO UD daily except none on Tuesdays and 03/13/2012 04/08/2012 Inactive Premarin 0.625 mg/gram Vaginal Cream RxNorm: 193263 1 Application VAG 1 applicator per vagina 3 times per week 02/20/2012 02/13/2013 Inactive omeprazole 20 mg tablet,delayed release RxNorm: 526578 1 Tablet(s) PO BID 02/13/2012 04/08/2012 Inactive Vesicare 10 mg tablet RxNorm: 489887 1 Tablet(s) PO QHS 02/13/2012 02/06/2013 Inactive Diflucan 150 mg tablet RxNorm: 790801 1 Tablet(s) PO daily 02/13/2012 02/19/2012 Inactive omeprazole 20 mg tablet,delayed release RxNorm: 968175 1 Tablet(s) PO BID 01/06/2012 02/12/2012 Inactive Calcium 600 + D(3) 600 mg (1,500)-200 unit Tab RxNorm: 417319 2 Tablet(s) PO BID 01/06/2012 08/31/2015 Inactive diltiazem 90 mg tablet RxNorm: 107309 1/2 Tablet(s) PO QPM 12/26/2011 02/12/2013 Inactive also 180 q am diltiazem ER 180 mg Cap RxNorm: 188556 1 Capsule(s) PO QAM 12/26/2011 04/08/2012 Inactive 45mg q hs Flagyl 500 mg Tab RxNorm: 171140 1 Tablet(s) PO BID 12/14/2011 12/20/2011 Inactive dicyclomine 10 mg Cap RxNorm: 992626 1 Capsule(s) PO AC & HS 12/01/2011 12/25/2011 Inactive Levaquin 500 mg Tab RxNorm: 960665 1 Tablet(s) PO daily 11/23/2011 11/29/2011 Inactive Rocephin 500 mg Solution for Injection RxNorm: 6512391 Inj 11/23/2011 11/23/2011 Inactive acyclovir 400 mg Tab RxNorm: 540368 1 Tablet(s) PO QID 11/10/2011 11/19/2011 Inactive acyclovir 400 mg Tab RxNorm: 759833 1 Tablet(s) PO QID 11/10/2011 11/09/2011 Inactive lisinopril 20 mg Tab RxNorm: 353679 1 Tablet(s) PO daily 10/03/2011 11/27/2011 Inactive lisinopril 20 mg Tab RxNorm: 674847 1 Tablet(s) PO daily 08/08/2011 10/02/2011 Inactive Reclast 5 mg/100 mL IV RxNorm: 975317 Milliliter(s) IV Yearly 06/08/2011 01/16/[address] Hansen manages Rocephin 500 mg Solution for Injection RxNorm: 8256084 1 Milliliter(s) Inj 03/04/2011 08/08/2011 Inactive Ceftin 500 mg Tab RxNorm: 736681 1 Tablet(s) PO BID 03/04/2011 08/08/2011 Inactive Vitamin D3 1,000 unit tablet RxNorm: 624492 2 Tablet(s) PO daily No Start Date Active Stool Softener 100 mg tablet RxNorm: 5252650 2 Tablet(s) PO QHS No Start Date Active Beano tablet RxNorm: 2-3 Tablet(s) PO as needed No Start Date Active Probiotic Pearls 15 mg (1 billion cell) capsule,delayed release RxNorm: 1 Capsule(s) PO daily No Start Date Active Lipitor 10 mg tablet RxNorm: 697262 1 Tablet(s) PO daily No Start Date Active Miralax 17 gram oral powder packet RxNorm: 555555 1/2 packet PO QHS No Start Date Active multivitamin Tab RxNorm: 1 Tablet(s) PO daily No Start Date Active Tylenol Extra Strength 500 mg tablet RxNorm: 874189 2 Tablet(s) PO as needed No Start Date Active Combigan 0.2 %-0.5 % eye drops RxNorm: 133640 1 Drop(s) OPH BID No Start Date Active 1 drop twice daily left eye Lexapro 5 mg tablet RxNorm: 924486 1 Tablet(s) PO daily No Start Date Active Tatiana Allergy 180 mg tablet RxNorm: 937221 1 Tablet(s) PO daily No Start Date Active Lotemax 0.5 % eye drops,suspension RxNorm: 152528 1 Drop(s) OPH right eye BID No Start Date Active Levoxyl 50 mcg tablet RxNorm: 614500 1 Tablet(s) PO daily No Start Date 01/15/2013 Inactive lisinopril-hydrochlorothiazide 20 mg-25 mg Tab RxNorm: 112925 1 Tablet(s) PO daily No Start Date 08/07/2011 Inactive Metanx 3 mg-35 mg-2 mg tablet RxNorm: 1 Tablet(s) PO daily No Start Date 04/17/2012 Inactive diltiazem CD 120 mg capsule,extended release 24 hr RxNorm: 604604 1 Capsule(s) PO daily No Start Date 09/28/2015 Inactive lisinopril 20 mg tablet RxNorm: 430333 Tablet(s) PO No Start Date Active Lumigan 0.01 % Eye Drops RxNorm: 2821603 1 Drop(s) OPH daily Left eye No Start Date 12/10/2013 Inactive prednisolone acetate 1 % Eye Drops, Susp RxNorm: 2884841 1 Drop(s) OPH BID 1 drop right eye am and hs No Start Date 11/02/2015 Inactive Eliquis 5 mg tablet RxNorm: 9211829 1 Tablet(s) PO BID No Start Date 06/08/2016 Inactive potassium gluconate (bulk) Misc RxNorm: Miscellaneous No Start Date 12/25/2011 Inactive Calcium 600 + D(3) 600 mg (1,500)-200 unit Tab RxNorm: 469287 3 Tablet(s) PO daily No Start Date 2012 Inactive Zyrtec 10 mg tablet RxNorm: 8609957 1 Tablet(s) PO daily No Start Date 08/02/2016 Inactive Synthroid 100 mcg tablet RxNorm: 675693 1 Tablet(s) PO daily No Start Date 09/04/2013 Inactive metoprolol succinate ER 50 mg tablet,extended release 24 hr RxNorm: 326642 1 Tablet(s) PO daily No Start Date 03/23/2016 Inactive Carafate 100 mg/mL oral suspension RxNorm: 436639 2 Teaspoon(s) PO as needed with reflux symptoms No Start Date 06/03/2018 Inactive Metanx 3 mg-35 mg-2 mg tablet RxNorm: 1 Tablet(s) PO daily 2pm No Start Date 11/02/2015 Inactive Lexapro 5 mg tablet RxNorm: 643240 1 Tablet(s) PO daily No Start Date 08/18/2015 Inactive Iron (dried) oral RxNorm: 43050 oral No Start Date 11/02/2015 Inactive timolol 0.5 % Eye Drops RxNorm: 500548 1 Drop(s) OPH daily left eye No Start Date 12/18/2013 Inactive multivitamin Cap RxNorm: 1 Capsule(s) PO daily No Start Date 12/25/2011 Inactive dicyclomine 10 mg Cap RxNorm: 247824 2 Capsule(s) PO daily No Start Date 11/30/2011 Inactive silver sulfadiazine 1 % Topical Cream RxNorm: 345335 TOP apply to affected area with each dressing change No Start Date 12/18/2012 Inactive magnesium oxide 400 mg Tab RxNorm: 158070 1 Tablet(s) PO daily No Start Date 11/02/2015 Inactive Pradaxa 75 mg Cap RxNorm: 7907547 1 Capsule(s) PO BID No Start Date 04/09/2012 Inactive magnesium oxide 400 mg Tab RxNorm: 665214 2 Tablet(s) PO daily magnesium plus zinc No Start Date 12/25/2011 Inactive biotin 1000 mg RxNorm: 1 PO daily No Start Date 12/25/2011 Inactive Synthroid 50 mcg Tab RxNorm: 787406 Tablet(s) PO No Start Date 12/25/2011 Inactive diltiazem ER 180 mg Cap RxNorm: 964903 1 Capsule(s) PO daily No Start Date 12/25/2011 Inactive 1 D 3 1000 iu Oral RxNorm: Oral No Start Date 12/25/2011 Inactive Coumadin 2 mg tablet RxNorm: 700187 Tablet(s) PO No Start Date 04/24/2012 Inactive 5mg tue [id number] mon fri sat sun(has 2mg and 1 mg tab) dicyclomine 20 mg tablet RxNorm: 087585 Tablet(s) PO No Start Date 04/17/2012 Inactive one ac dinner and up to tid prn lactobacillus acidophilus tablet RxNorm: 1 Tablet(s) PO daily No Start Date 11/03/2015 Inactive Eliquis 2.5 mg tablet RxNorm: 7269706 1 Tablet(s) PO BID No Start Date 07/25/2017 Inactive Levoxyl 75 mcg Tab RxNorm: 553892 1 Tablet(s) PO daily No Start Date 10/02/2011 Inactive digoxin 125 mcg tablet RxNorm: 464241 1 Tablet(s) PO daily No Start Date 03/12/2012 Inactive pantoprazole 40 mg tablet,delayed release RxNorm: 188758 1 Tablet(s) PO BID No Start Date 01/04/2016 Inactive cyclobenzaprine 5 mg tablet RxNorm: 534731 1/2 Tablet(s) PO Q8 PRN No Start Date 10/24/2016 Inactive diltiazem 90 mg Tab RxNorm: 000168 1/2 Tablet(s) PO QPM No Start Date 12/25/2011 Inactive Mirapex 1 mg Tab RxNorm: 713752 1 Tablet(s) PO QHS No Start Date 12/25/2011 Inactive Xanax 0.25 mg tablet RxNorm: 293208 1 Tablet(s) PO Q6 PRN No Start Date 11/10/2013 Inactive Premarin 0.625 mg/gram Vaginal Cream RxNorm: 040257 1 Application VAG 1 applicator per vagina 3 times per week No Start Date 02/19/2012 Inactive Synthroid 75 mcg Tab RxNorm: 922304 1 Tablet(s) PO daily No Start Date 04/17/2012 Inactive lisinopril 40 mg Tab RxNorm: 276745 1 Tablet(s) PO daily No Start Date 12/25/2011 Inactive Glucosamine Chondroitin Complex Advanced 240dh-569oo-231si-1.65mg Tab RxNorm: 2 Tablet(s) PO daily No Start Date 08/08/2011 Inactive famotidine 20 mg tablet RxNorm: 677267 1 Tablet(s) PO QAM No Start Date 11/02/2015 Inactive cranberry extract 250 mg Tab RxNorm: 337422 2 Tablet(s) PO daily No Start Date 08/08/2011 Inactive Vitamin D3 1,000 unit capsule RxNorm: 313314 1 Capsule(s) PO daily No Start Date 08/31/2015 Inactive aspirin 81 mg Tab, Delayed Release RxNorm: 085985 1 Tablet(s) PO daily No Start Date 08/31/2015 Inactive diltiazem ER 120 mg capsule,extended release RxNorm: 588732 1 Capsule(s) PO daily patient would like 4 months at a time No Start Date 06/02/2013 Inactive omeprazole 20 mg Tab, Delayed Release RxNorm: 348377 2 Tablet(s) PO QHS No Start Date 2012 Inactive lisinopril 10 mg tablet RxNorm: 341521 1/2 Tablet(s) PO daily No Start Date 10/16/2012 Inactive Pred Forte 1 % Eye Drops RxNorm: 427374 1 Drop(s) OPH daily right eye No Start Date 12/25/2013 Inactive calcium carbonate 400 mg Chewable Tab RxNorm: 549507 1 Tablet(s) PO daily No Start Date 08/08/2011 Inactive Vesicare 10 mg tablet RxNorm: 690458 1 Tablet(s) PO QHS No Start Date 02/12/2012 Inactive Symbicort 160 mcg-4.5 mcg/actuation HFA aerosol inhaler RxNorm: 3420458 2 Puff(s) INH BID No Start Date 12/13/2017 Inactive potassium 99 mg tablet RxNorm: 1 Tablet(s) PO QPM No Start Date 12/25/2013 Inactive timolol 0.25 % Eye Drops RxNorm: 613095 1 Drop(s) OPH daily Left eye No Start Date 04/17/2012 Inactive diltiazem ER 90 mg capsule,extended release 12 hr RxNorm: 808583 1/2 Capsule(s) PO QPM No Start Date 04/28/2014 Inactive cyclobenzaprine 5 mg Tab RxNorm: 306713 12-1 Tablet(s) PO Q8 PRN No Start Date 12/25/2011 Inactive 1/2 - 1 tab q 8hrs prn muscle spasms Medication Administered Medication Codes Instructions Start Date Status Influenza Virus Vaccine 0.5 mL RxNorm: 04/23/2013 No longer Active Rocephin 500 mg Solution for Injection RxNorm: 8912782 11/23/2011 No longer Active Immunizations Vaccine Codes [...] hypertension ICD-10: I10 ICD-9: 401.9 01/31/2018 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 ICD-10: Z79.899 ICD-9: V58.83 [...] hemorrhoids ICD-10: K64.0 ICD-9: 455.6 03/24/2016 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 ICD-10: Z79.899 ICD-9: V58.69 [...] Code Result Date C RAP A SC [id number] Strep A Negative 11/30/2018 Electrolytes Ord62 NA 132 mEq/L 09/25/2018 Electrolytes Ord62 K 4.1 mEq/L 09/25/2018 Electrolytes Ord62 CL 98 mEq/L 09/25/2018 Electrolytes Ord62 CO2 26.0 mEq/L 09/25/2018 Electrolytes Ord62 ANION GAP 12 09/25/2018 Comp Metabolic Uqh862 NA 130 mEq/L 09/12/2018 Comp Metabolic Klh872 K 4.2 mEq/L 09/12/2018 Comp Metabolic Hip284 CL 98 mEq/L 09/12/2018 Comp Metabolic Tti865 CO2 23.0 mEq/L 09/12/2018 Comp Metabolic Dkw496 ANION GAP 13 09/12/2018 Comp Metabolic Jwt241 GLUCOSE 129 mg/dL 09/12/2018 Comp Metabolic Lhg604 Creat 1.0 mg/dL 09/12/2018 Comp Metabolic Hsr907 eGFR 58 ml/min/1.73m2 09/12/2018 Comp Metabolic Qnl547 BUN 28 mg/dL 09/12/2018 Comp Metabolic Lmu256 B/C Ratio 28.9 Ratio 09/12/2018 Comp Metabolic Hnp420 CALCIUM 9.1 mg/dL 09/12/2018 Comp Metabolic Btz614 ALK PHOS 59 U/L 09/12/2018 Comp Metabolic Gek996 AST(SGOT) 21 U/L 09/12/2018 Comp Metabolic Jyt460 ALT(SGPT) 19 U/L 09/12/2018 Comp Metabolic Ftg885 BILI T 0.8 mg/dL 09/12/2018 Comp Metabolic Lzs435 ALBUMIN 3.9 g/dL 09/12/2018 Comp Metabolic Fnj533 TPRO 6.5 g/dL 09/12/2018 Comp Metabolic Yre686 GLOB 2.6 g/dL 09/12/2018 Comp Metabolic Dos201 A/G Ratio 1.5 Ratio 09/12/2018 Comp Metabolic Dcn220 Osmo 268 mOsmo 09/12/2018 Tsh Ord6 TSH (3rd IS) 12.84 uIU/mL 09/12/2018 Influenza A+B Cxs682 Influ A+B Negative 09/12/2018 Cbc With Differential [...] 12.3 % 09/12/2018 Cbc With Differential Ord2 [place]% 12.0 % 09/12/2018 Cbc With Differential Ord2 [...] 0.85 K/ul 09/12/2018 Cbc With Differential Ord2 [place] ABS# 0.8 K/ul 09/12/2018 Cbc With Differential Ord2 Eos ABS# 0.1 K/ul 09/12/2018 Cbc With Differential Ord2 Baso ABS# 0.0 K/ul 09/12/2018 Free T4 Bwc540 FREE T4 1.10 ng/dL 09/12/2018 Free T4 Twg479 FREE T4 1.19 ng/dL 05/08/2018 Digoxin Ord9 DIGOXIN 0.6 NG/ML 05/08/2018 Tsh Ord6 TSH (3rd IS) 10.58 uIU/mL 05/08/2018 Tsh Ord6 TSH (3rd IS) 1.07 uIU/mL 01/31/2018 Free T4 Wil605 FREE T4 1.63 ng/dL 01/31/2018 Digoxin Ord9 DIGOXIN 0.8 NG/ML 01/31/2018 C RAP A SC [id number] Strep A Negative 11/21/2016 Thyroid Antibodies 000796 THYROGLOBULIN ANTIBODY . 11/04/2016 Thyroid Antibodies 119050 THYROGLOBULIN ANTIBODY 919 IU/mL 11/04/2016 Thyroid Antibodies 268937 THYROID PEROXIDASE (TPO) AB . 11/04/2016 Thyroid Antibodies 045327 THYROID PEROXIDASE (TPO) AB 10 IU/mL 11/04/2016 Total T3 Ord42 TT3 0.64 ng/ml 11/03/2016 Free T4 Ejz166 FREE T4 1.39 ng/dL 11/02/2016 Tsh Ord6 [...] Differential Ord2 RDW 13.8 % 05/26/2015 Pt Trx3141 PT 25.0 seconds 05/26/2015 Pt Tnk7138 INR 2.4 05/26/2015 Pt Bog3995 Low Intensity - 1.5-2.0 05/26/2015 Pt Had3380 Mod intensity - 2.0-3.0 05/26/2015 Pt Fxs1669 Hi intensity - 3.0-4.0 05/26/2015 Uric Acid [...] Digoxin Ord9 DIGOXIN 0.6 NG/ML 05/06/2015 Pt Sds2380 PT 23.3 seconds 05/06/2015 Pt Zil2478 INR 2.1 05/06/2015 Pt Afk6343 Low Intensity - 1.5-2.0 05/06/2015 Pt Mxf9477 Mod intensity - 2.0-3.0 05/06/2015 Pt Lil0458 Hi intensity - 3.0-4.0 05/06/2015 Free T4 Ncg763 FREE T4 1.65 ng/dL 05/06/2015 Comp Metabolic Orf282 NA 132 mEq/L 05/06/2015 Comp Metabolic Yse183 K 4.1 mEq/L 05/06/2015 Comp Metabolic Zht562 CL 98 mEq/L 05/06/2015 Comp Metabolic Mnu380 CO2 27.0 mEq/L 05/06/2015 Comp Metabolic Suo652 ANION GAP 11 05/06/2015 Comp Metabolic Jka301 GLUCOSE 71 mg/dL 05/06/2015 Comp Metabolic Qbx105 Creat 0.7 mg/dL 05/06/2015 Comp Metabolic Rhg032 eGFR 82 ml/min/1.73m2 05/06/2015 Comp Metabolic Yud435 BUN 16 mg/dL 05/06/2015 Comp Metabolic Tia825 B/C Ratio 22.2 Ratio 05/06/2015 Comp Metabolic Twd130 CALCIUM 9.4 mg/dL 05/06/2015 Comp Metabolic Wkj872 ALK PHOS 60 U/L 05/06/2015 Comp Metabolic Vev454 AST(SGOT) 22 U/L 05/06/2015 Comp Metabolic Aty338 ALT(SGPT) 24 U/L 05/06/2015 Comp Metabolic Tcv648 BILI T 0.8 mg/dL 05/06/2015 Comp Metabolic Prh069 ALBUMIN 4.3 g/dL 05/06/2015 Comp Metabolic Cmt847 TPRO 7.6 g/dL 05/06/2015 Comp Metabolic Rmr626 GLOB 3.3 g/dL 05/06/2015 Comp Metabolic Kml100 A/G Ratio 1.3 Ratio 05/06/2015 Comp Metabolic Twy006 Osmo 264 mOsmo 05/06/2015 DIGOXIN 9679073 DIGOXIN 1.1 NG/ML 05/15/2013 PT/MC 5592722 PRO TIME 21.7 SEC 05/15/2013 PT/MC 6681197 INR MCMC 2.0 05/15/2013 CHEM 14 2987063 AST 24 U/L 04/23/2013 CHEM 14 1417956 ALT 31 IU/L 04/23/2013 CHEM 14 9346876 BUN 13 MG/DL 04/23/2013 CHEM 14 3329582 ALBUMIN 4.1 GM/DL 04/23/2013 CHEM 14 1635883 CHLORIDE 103 MMOL/L 04/23/2013 CHEM 14 6597275 BILI TOT 0.5 MG/DL 04/23/2013 CHEM 14 5575590 ALK PHOS 44 U/L 04/23/2013 CHEM 14 7544548 SODIUM 137 MMOL/L 04/23/2013 CHEM 14 3439807 CREATININE 0.61 MG/DL 04/23/2013 CHEM 14 3300090 CALCIUM 9.5 MG/DL 04/23/2013 CHEM 14 2007626 POTASSIUM 4.0 MMOL/L 04/23/2013 CHEM 14 0256422 PROT TOT 6.6 GM/DL 04/23/2013 CHEM 14 7272216 GLUCOSE 99 MG/DL 04/23/2013 CHEM 14 6949727 BICARB 27 MMOL/L 04/23/2013 CHEM 14 8076225 ANION GAP 7 MEQ/L 04/23/2013 GFR CALC 4584366 GFR AA >60 ML/MIN 04/23/2013 GFR CALC 5718628 GFR NON-AA >60 ML/MIN 04/23/2013 TSH 6996526 TSH 4.204 uIU/ML 04/23/2013 CBC 2787571 WBC 6.7 10e9/L 04/23/2013 CBC 2095739 RBC 4.19 10e12/L 04/23/2013 CBC 8026172 HGB 13.2 g/dL 04/23/2013 CBC 9688114 HCT DET 39.2 % 04/23/2013 CBC 7516139 MCV 93.6 fL 04/23/2013 CBC 1308774 MCH 31.5 pg 04/23/2013 CBC 5345807 MCHC 33.7 g/dL 04/23/2013 CBC 8377263 PLT 202 10e9/L 04/23/2013 CBC 6473562 MPV 11.4 fL 04/23/2013 CBC 3493068 YANIRA % 70.5 % 04/23/2013 CBC 4676003 LY % 19.6 % 04/23/2013 CBC 8586536 MON % 8.2 % 04/23/2013 CBC 2860647 EOS % 1.6 % 04/23/2013 CBC 2794954 BASO % 0.1 % 04/23/2013 CBC 9389713 RDW 13.7 % 04/23/2013 CBC 5067209 ABS YANIRA 4.72 10e9/L 04/23/2013 CBC 3444755 ABS LYMPH 1.31 10e9/L 04/23/2013 CBC 6951300 ABS MONO 0.55 10e9/L 04/23/2013 CBC 2069021 ABS EOS 0.11 10e9/L 04/23/2013 CBC 7759313 ABS BASO 0.01 10e9/L 04/23/2013 CBC 8006538 RDW-SD 45.7 fL 04/23/2013 PT/MC 0377215 PRO TIME 13.4 SEC 12/17/2012 PT/MC 7282833 INR MCMC 1.0 12/17/2012 PT/MC 2822501 PRO TIME 16.6 SEC 12/14/2012 PT/MC 8694609 INR MCMC 1.4 12/14/2012 PT/MC 4095007 PRO TIME 27.2 SEC 12/11/2012 PT/MC 5925581 INR MCMC 2.6 12/11/2012 DIGOXIN 1512574 DIGOXIN 2.1 NG/ML 03/08/2012 GFR CALC 2306889 GFR AA >60 ML/MIN 03/08/2012 GFR CALC 1673464 GFR NON-AA >60 ML/MIN 03/08/2012 CHEM 14 20280112 AST 16 U/L 03/08/2012 CHEM 14 20280112 ALT 14 IU/L 03/08/2012 CHEM 14 20280112 BUN 10 MG/DL 03/08/2012 CHEM 14 5680754 ALBUMIN 4.2 GM/DL 03/08/2012 CHEM 14 20280112 CHLORIDE 100 MMOL/L 03/08/2012 CHEM 14 20280112 BILI TOT 0.5 MG/DL 03/08/2012 CHEM 14 5738352 ALK PHOS 59 U/L 03/08/2012 CHEM 14 3825606 SODIUM 136 MMOL/L 03/08/2012 CHEM 14 20280112 CREATININE 0.65 MG/DL 03/08/2012 CHEM 14 3820613 CALCIUM 9.4 MG/DL 03/08/2012 CHEM 14 2239915 POTASSIUM 3.9 MMOL/L 03/08/2012 CHEM 14 0572370 PROT TOT 6.7 GM/DL 03/08/2012 CHEM 14 4101177 GLUCOSE 90 MG/DL 03/08/2012 CHEM 14 9829752 BICARB 30 MMOL/L 03/08/2012 CHEM 14 2019730 ANION GAP 6 MEQ/L 03/08/2012 CHEM 14 1879379 AST 16 U/L 11/23/2011 CHEM 14 3690340 ALT 14 IU/L 11/23/2011 CHEM 14 9022409 BUN 11 MG/DL 11/23/2011 CHEM 14 7464347 ALBUMIN 4.1 GM/DL 11/23/2011 CHEM 14 1893335 CHLORIDE 100 MMOL/L 11/23/2011 CHEM 14 1924570 BILI TOT 0.5 MG/DL 11/23/2011 CHEM 14 9266762 ALK PHOS 50 U/L 11/23/2011 CHEM 14 6019284 SODIUM 135 MMOL/L 11/23/2011 CHEM 14 8626283 CREATININE 0.57 MG/DL 11/23/2011 CHEM 14 9998293 CALCIUM 9.1 MG/DL 11/23/2011 CHEM 14 6235625 POTASSIUM 4.5 MMOL/L 11/23/2011 CHEM 14 2657536 PROT TOT 6.5 GM/DL 11/23/2011 CHEM 14 2618099 GLUCOSE 89 MG/DL 11/23/2011 CHEM 14 2353895 BICARB 28 MMOL/L 11/23/2011 CHEM 14 1863027 ANION GAP 7 MEQ/L 11/23/2011 GFR CALC 6769319 GFR AA >60 ML/MIN 11/23/2011 GFR CALC 7272110 GFR NON-AA >60 ML/MIN 11/23/2011 CBC 4907598 WBC 5.1 10e9/L 11/23/2011 CBC 8529698 RBC 4.06 10e12/L 11/23/2011 CBC 5842815 HGB 12.5 g/dL 11/23/2011 CBC 0212607 HCT DET 37.3 % 11/23/2011 CBC 6459077 MCV 91.9 fL 11/23/2011 CBC 1580599 MCH 30.8 pg 11/23/2011 CBC 2505930 MCHC 33.5 g/dL 11/23/2011 CBC 8641142 PLT 222 10e9/L 11/23/2011 CBC 3799543 MPV 10.8 fL 11/23/2011 CBC 9747586 YANIRA % 64.2 % 11/23/2011 CBC 3675483 LY % 22.3 % 11/23/2011 CBC 7541647 MON % 11.3 % 11/23/2011 CBC 4896087 EOS % 1.8 % 11/23/2011 CBC 5690710 BASO % 0.4 % 11/23/2011 CBC 4449826 RDW 13.6 % 11/23/2011 CBC 1481657 ABS YANIRA 3.27 10e9/L 11/23/2011 CBC 6190065 ABS LYMPH 1.14 10e9/L 11/23/2011 CBC 9620563 ABS MONO 0.58 10e9/L 11/23/2011 CBC 7204139 ABS EOS 0.09 10e9/L 11/23/2011 CBC 2525088 ABS BASO 0.02 10e9/L 11/23/2011 CBC 4784722 RDW-SD 44.5 fL 11/23/2011 UA 25485 Specific [place] 1.005 03/04/2011 UA 92153 PH 6 03/04/2011 UA 40288 GLUCOSE N 03/04/2011 UA 11038 Protein N 03/04/2011 UA 59881 Blood ++ 03/04/2011 UA 23867 Bilirubin N 03/04/2011 UA 90914 Ketones N 03/04/2011 UA 97271 Urobilinogen N 03/04/2011 UA 19053 Nitrite N 03/04/2011 UA 68977 Leukocytes N 03/04/2011 URINALYSIS NONAUTO W/O SCOPE 47586 Specific [place] 1.010 DateTime(Free Text in Aprima) URINALYSIS NONAUTO W/O SCOPE 55965 PH 6.5 DateTime(Free Text in Aprima) URINALYSIS NONAUTO W/O SCOPE 87767 GLUCOSE neg DateTime(Free Text in Aprima) URINALYSIS NONAUTO W/O SCOPE 67321 Protein neg DateTime(Free Text in Aprima) URINALYSIS NONAUTO W/O SCOPE 69824 Blood 3+ DateTime(Free Text in Aprima) URINALYSIS NONAUTO W/O SCOPE 47634 Bilirubin neg DateTime(Free Text in Aprima) URINALYSIS NONAUTO W/O SCOPE 80582 Ketones neg DateTime(Free Text in Aprima) URINALYSIS NONAUTO W/O SCOPE 96881 Urobilinogen neg DateTime(Free Text in Aprima) URINALYSIS NONAUTO W/O SCOPE 76290 Nitrite neg DateTime(Free Text in Aprima) URINALYSIS NONAUTO W/O SCOPE 60263 Leukocytes neg DateTime(Free Text in Aprima) URINALYSIS NONAUTO W/O SCOPE 19682 Specific [place] 1.010 DateTime(Free Text in Aprima) URINALYSIS NONAUTO W/O SCOPE 73060 PH 5 DateTime(Free Text in Aprima) URINALYSIS NONAUTO W/O SCOPE 95812 GLUCOSE neg DateTime(Free Text in Aprima) URINALYSIS NONAUTO W/O SCOPE 97088 Protein neg DateTime(Free Text in Aprima) URINALYSIS NONAUTO W/O SCOPE 70743 Blood 3+ DateTime(Free Text in Aprima) URINALYSIS NONAUTO W/O SCOPE 14970 Bilirubin neg DateTime(Free Text in Aprima) URINALYSIS NONAUTO W/O SCOPE 46903 Ketones neg DateTime(Free Text in Aprima) URINALYSIS NONAUTO W/O SCOPE 85325 Urobilinogen neg DateTime(Free Text in Aprima) URINALYSIS NONAUTO W/O SCOPE 93057 Nitrite neg DateTime(Free Text in Aprima) URINALYSIS NONAUTO W/O SCOPE 15595 Leukocytes neg DateTime(Free Text in Aprima) URINALYSIS NONAUTO W/O SCOPE 01052 Specific [place] 1.005 DateTime(Free Text in Aprima) URINALYSIS NONAUTO W/O SCOPE 21507 PH 8.5 DateTime(Free Text in Aprima) URINALYSIS NONAUTO W/O SCOPE 17178 GLUCOSE neg DateTime(Free Text in Aprima) URINALYSIS NONAUTO W/O SCOPE 62922 Protein neg DateTime(Free Text in Aprima) URINALYSIS NONAUTO W/O SCOPE 20770 Blood 1+ DateTime(Free Text in Aprima) URINALYSIS NONAUTO W/O SCOPE 86622 Bilirubin neg DateTime(Free Text in Aprima) URINALYSIS NONAUTO W/O SCOPE 83285 Ketones neg DateTime(Free Text in Aprima) URINALYSIS NONAUTO W/O SCOPE 33218 Urobilinogen neg DateTime(Free Text in Aprima) URINALYSIS NONAUTO W/O SCOPE 49592 Nitrite neg DateTime(Free Text in Aprima) URINALYSIS NONAUTO W/O SCOPE 91925 Leukocytes neg DateTime(Free Text in Aprima) URINALYSIS NONAUTO W/O SCOPE 13395 Specific [place] 1.005 DateTime(Free Text in Aprima) URINALYSIS NONAUTO W/O SCOPE 75463 PH 7 DateTime(Free Text in Aprima) URINALYSIS NONAUTO W/O SCOPE 07192 GLUCOSE neg DateTime(Free Text in Aprima) URINALYSIS NONAUTO W/O SCOPE 97563 Protein neg DateTime(Free Text in Aprima) URINALYSIS NONAUTO W/O SCOPE 77750 Blood large DateTime(Free Text in Aprima) URINALYSIS NONAUTO W/O SCOPE 83771 Bilirubin neg DateTime(Free Text in Aprima) URINALYSIS NONAUTO W/O SCOPE 10567 Ketones neg DateTime(Free Text in Aprima) URINALYSIS NONAUTO W/O SCOPE 45842 Urobilinogen 0.2 DateTime(Free Text in Aprima) URINALYSIS NONAUTO W/O SCOPE 20861 Nitrite neg DateTime(Free Text in Aprima) URINALYSIS NONAUTO W/O SCOPE 97388 Leukocytes neg DateTime(Free Text in Aprima) URINALYSIS NONAUTO W/O SCOPE 20387 Specific [place] 1.005 DateTime(Free Text in Aprima) URINALYSIS NONAUTO W/O SCOPE 88883 PH 7.5 DateTime(Free Text in Aprima) URINALYSIS NONAUTO W/O SCOPE 21097 GLUCOSE DateTime(Free Text in Aprima) URINALYSIS NONAUTO W/O SCOPE 10279 Protein trace DateTime(Free Text in Aprima) URINALYSIS NONAUTO W/O SCOPE 52945 Blood 4+ DateTime(Free Text in Aprima) URINALYSIS NONAUTO W/O SCOPE 99958 Bilirubin DateTime(Free Text in Aprima) URINALYSIS NONAUTO W/O SCOPE 84817 Ketones DateTime(Free Text in Aprima) URINALYSIS NONAUTO W/O SCOPE 00032 Urobilinogen DateTime(Free Text in Aprima) URINALYSIS NONAUTO W/O SCOPE 72146 Nitrite DateTime(Free Text in Aprima) URINALYSIS NONAUTO W/O SCOPE 43697 Leukocytes trace DateTime(Free Text in Aprima) Review of Systems System Result Effective Dates [...] developed 10/09/2018 None Full Exam - General 1994 Constitutional general appearance Development: appears stated age 0410/09/2018 None Full Exam - General 1995 Eyes conjunctiva/eyelids Cornea: corneal scar 10/09/2018 None Full Exam - General 1995 Eyes pupils and irises Pupil: round 10/09/2018 None Full Exam - General 1994 Eyes [...] accomodation 03/24/2016 None Full Exam - General 1994 Constitutional general appearance Overall: well developed 02/02/2016 [...] FLU VACC PRSV FREE INC ANTIG CPT-4: 72173 03/27/2017 PPPS, SUBSEQ VISIT CPT- 4: G0439 01/23/2017 URINALYSIS NONAUTO W/O SCOPE CPT-4: 27849 05/17/2016 ADMIN INFLUENZA VIRUS VAC CPT-4: G0008 03/24/2016 FLU VACC PRSV FREE INC ANTIG CPT-4: 05110 03/24/2016 ADMIN PNEUMOCOCCAL VACCINE SNOMED CT: 81871576 CPT-4: G0009 05/13/2015 PNEUMOCOCCAL VACC [address]: 32233124 CPT-4: 87260 05/13/2015 Pneumococcal Polysaccharide Vaccine, 23-Valent, Ad Assigned to/Mela Bledsoe CPT-4: [id number] 07/11/2014 ADMIN PNEUMOCOCCAL VACCINE SNOMED CT: 07721482 CPT-4: G0009 07/11/2014 URINALYSIS NONAUTO W/O SCOPE CPT-4: 52087 05/14/2014 URINALYSIS NONAUTO W/O SCOPE CPT-4: 54573 05/06/2014 URINALYSIS NONAUTO W/O SCOPE CPT-4: 03980 04/29/2014 ADMIN INFLUENZA VIRUS VAC CPT-4: G0008 03/20/2014 FLU VAC NO PRSV 4 SCOTT 3 YRS+ Assigned to/Mela Bledsoe CPT-4: 48301Vxofupe 03/20/2014 URINALYSIS NONAUTO W/O SCOPE CPT-4: 07594 07/29/2013 URINALYSIS NONAUTO W/O SCOPE CPT-4: 27533 07/01/2013 URINALYSIS NONAUTO W/O SCOPE CPT-4: 93032 06/20/2013 ROUTINE VENIPUNCTURE CPT- 4: 81974 05/15/2013 ROUTINE VENIPUNCTURE CPT- 4: 09936 04/23/2013 ADMIN INFLUENZA VIRUS VAC CPT-4: G0008 04/23/2013 FLULAVAL VACC, 3 YRS & >, IM CPT-4: Q2036 04/23/2013 ROUTINE VENIPUNCTURE CPT- 4: 42655 12/17/2012 ROUTINE VENIPUNCTURE CPT- 4: 18349 12/14/2012 ROUTINE VENIPUNCTURE CPT- 4: 75563 12/11/2012 PRESCRIP TRANSMIT VIA ERX SY CPT-4: G8553 12/11/2012 PRESCRIP TRANSMIT VIA ERX SY CPT-4: G8553 10/30/2012 URINALYSIS NONAUTO W/O SCOPE CPT-4: 52617 09/13/2012 ADMIN INFLUENZA VIRUS VAC CPT-4: G0008 04/18/2012 FLULAVAL VACC, 3 YRS & >, IM CPT-4: Q2036 04/18/2012 URINALYSIS NONAUTO W/O SCOPE CPT-4: 76226 03/13/2012 ROUTINE VENIPUNCTURE CPT- 4: 67538 03/08/2012 URINALYSIS NONAUTO W/O SCOPE CPT-4: 80195 02/13/2012 PRESCRIP TRANSMIT VIA ERX SY CPT-4: G8553 02/13/2012 ROCEPHIN, PER 250 MG CPT- 4: J0696 11/23/2011 ROUTINE VENIPUNCTURE CPT- 4: 67620 11/23/2011 URINALYSIS NONAUTO W/O SCOPE CPT-4: 41912 11/23/2011 PRESCRIP TRANSMIT VIA ERX SY CPT-4: G8553 11/23/2011 REMOVE IMPACTED EAR WAX UNI CPT-4: 22873 10/17/2011 PRESCRIP TRANSMIT VIA ERX SY CPT-4: G8553 10/03/2011 PRESCRIP TRANSMIT VIA ERX SY CPT-4: G8553 08/08/2011 URINALYSIS NONAUTO W/O SCOPE CPT-4: 44249 03/15/2011 URINALYSIS NONAUTO W/O SCOPE CPT-4: 49756 03/04/2011 THER/PROPH/DIAG INJ SC/IM CPT-4: 15499 03/04/2011 ROCEPHIN, PER 250 MG CPT- 4: J0696 03/04/2011 Vital Signs Date Vital 12/06/2018 Blood Pressure 1: 118/66 Code: 8480-6 BMI: 20.1 Code: 33819-3 Heart Rate 1: 134 bpm Height: 5' SpO2: 98% Weight: 103 lbs 11/30/2018 Blood Pressure 1: 122/64 Code: 8480-6 Height: Weight: 10/31/2018 Blood Pressure 1: 122/66 Code: 8480-6 BMI: 20.5 Code: 37000-3 Heart Rate 1: 83 bpm Height: 5' SpO2: 99% Weight: 105 lbs 10/09/2018 Blood Pressure 1: 126/60 Code: 8480-6 BMI: 19.9 Code: 93589-5 Heart Rate 1: 66 bpm Height: 5' SpO2: 96% Weight: 102 lbs 09/12/2018 Blood Pressure 1: 156/72 Code: 8480-6 BMI: 19.9 Code: 91761-7 Heart Rate 1: 68 bpm Height: 5' Temperature: 36.6 (C) / 97.8 (F) Weight: 102 lbs 08/14/2018 Blood Pressure 1: 136/68 Code: 8480-6 BMI: 21.1 Code: 07505-1 Heart Rate 1: 92 bpm Height: 5' Weight: 108 lbs 07/26/2018 Blood Pressure 1: 128/76 Code: 8480-6 BMI: 21.1 Code: 34861-4 Heart Rate 1: 88 bpm Height: 5' Weight: 108 lbs 06/04/2018 Blood Pressure 1: 124/72 Code: 8480-6 BMI: 21.3 Code: 93286-3 Heart Rate 1: 98 bpm Height: 5' Weight: 109 lbs 01/31/2018 Blood Pressure 1: 116/68 Code: 8480-6 BMI: 21.1 Code: 09630-9 Heart Rate 1: 89 bpm Height: 5' SpO2: 98% Weight: 108 lbs 01/17/2018 Blood Pressure 1: 134/74 Code: 8480-6 BMI: 21.3 Code: 64856-6 Heart Rate 1: 74 bpm Height: 5' SpO2: 96% Waist Measure (cm): 71 cm Weight: 109 lbs 12/14/2017 Blood Pressure 1: 150/78 Code: 8480-6 BMI: 21.5 Code: 89986-5 Heart Rate 1: 77 bpm Height: 5' SpO2: 98% Temperature: 36.7 (C) / 98.1 (F) Weight: 110 lbs 12/07/2017 Blood Pressure 1: 134/70 Code: 8480-6 Heart Rate 1: 76 bpm Height: SpO2: 98% Temperature: 36.8 (C) / 98.2 (F) Weight: 11/14/2017 Blood Pressure 1: 152/84 Code: 8480-6 BMI: 21.9 Code: 30602-7 Heart Rate 1: 95 bpm Height: 5' SpO2: 93% Weight: 112 lbs 03/27/2017 Blood Pressure 1: 122/70 Code: 8480-6 BMI: 21.3 Code: 76350-6 Heart Rate 1: 75 bpm Height: 5' Weight: 109 lbs 01/23/2017 BMI: 21.5 Code: 76158-5 Height: 5' Weight: 110 lbs 01/19/2017 Blood Pressure 1: 112/60 Code: 8480-6 BMI: 21.5 Code: 31958-9 Heart Rate 1: 54 bpm Height: 5' SpO2: 97% Weight: 110 lbs 11/29/2016 Blood Pressure 1: 126/68 Code: 8480-6 Height: 5' Weight: 11/23/2016 Blood Pressure 1: 130/72 Code: 8480-6 BMI: 21.9 Code: 85703-5 Heart Rate 1: 48 bpm Height: 5' SpO2: 97% Temperature: 36.7 (C) / 98.0 (F) Weight: 112 lbs 11/21/2016 Blood Pressure 1: 134/76 Code: 8480-6 BMI: 21.9 Code: 75445-6 Heart Rate 1: 41 bpm Height: 5' SpO2: 94% Temperature: 36.9 (C) / 98.4 (F) Weight: 112 lbs 11/08/2016 Blood Pressure 1: 126/74 Code: 8480-6 Heart Rate 1: 82 bpm Height: 5' SpO2: 94% Weight: 11/02/2016 Blood Pressure 1: 112/66 Code: 8480-6 Heart Rate 1: 72 bpm Height: 5' SpO2: 95% Weight: 10/27/2016 Blood Pressure 1: 130/64 Code: 8480-6 BMI: 21.7 Code: 81623-1 Heart Rate 1: 81 bpm Height: 5' SpO2: 96% Weight: 111 lbs 08/31/2016 Blood Pressure 1: 132/72 Code: 8480-6 BMI: 22.5 Code: 84822-0 Heart Rate 1: 66 bpm Height: 5' Weight: 115 lbs 07/27/2016 Blood Pressure 1: 166/74 Code: 8480-6 BMI: 23.2 Code: 73067-6 Heart Rate 1: 48 bpm Height: 5' SpO2: 90% Temperature: 36.8 (C) / 98.2 (F) Weight: 119 lbs 06/23/2016 Blood Pressure 1: 128/70 Code: 8480-6 BMI: 22.3 Code: 72958-7 Heart Rate 1: 75 bpm Height: 5' SpO2: 97% Weight: 114 lbs 06/09/2016 BMI: 22.7 Code: 86285-7 Heart Rate 1: 73 bpm Height: 5' SpO2: 97% Weight: 116 lbs 05/25/2016 Blood Pressure 1: 138/62 Code: 8480-6 BMI: 22.8 Code: 62384-9 Heart Rate 1: 76 bpm Height: 5' Weight: 117 lbs 05/17/2016 Blood Pressure 1: 116/70 Code: 8480-6 BMI: 22.8 Code: 30645-1 Heart Rate 1: 74 bpm Height: 5' SpO2: 94% Weight: 117 lbs 03/24/2016 Blood Pressure 1: 154/78 Code: 8480-6 BMI: 22.5 Code: 05953-9 Heart Rate 1: 78 bpm Height: 5' SpO2: 97% Weight: 115 lbs 02/02/2016 Blood Pressure 1: 132/70 Code: 8480-6 BMI: 22.3 Code: 40760-4 Heart Rate 1: 74 bpm Height: 5' SpO2: 94% Weight: 114 lbs 2016 Blood Pressure 1: 120/62 Code: 8480-6 BMI: 22.0 Code: 28628-5 Heart Rate 1: 68 bpm Height: 5' Weight: 112 lbs 8 oz 12/21/2015 Blood Pressure 1: 122/82 Code: 8480-6 BMI: 21.9 Code: 38409-8 Heart Rate 1: 83 bpm Height: 5' SpO2: 93% Temperature: 37.1 (C) / 98.7 (F) Weight: 112 lbs 11/03/2015 Blood Pressure 1: 122/72 Code: 8480-6 BMI: 22.4 Code: 51102-0 Heart Rate 1: 62 bpm Height: 5' Weight: 114 lbs 8 oz 10/19/2015 Blood Pressure 1: 138/62 Code: 8480-6 BMI: 21.1 Code: 87427-4 Heart Rate 1: 79 bpm Height: 5' Weight: 108 lbs 10/13/2015 Blood Pressure 1: 120/62 Code: 8480-6 BMI: 21.0 Code: 86424-4 Heart Rate 1: 76 bpm Height: 5' SpO2: 98% Weight: 108 lbs 09/29/2015 Blood Pressure 1: 130/70 Code: 8480-6 BMI: 20.2 Code: 02866-9 Heart Rate 1: 72 bpm Height: 5' Weight: 104 lbs 09/15/2015 Blood Pressure 1: 128/78 Code: 8480-6 BMI: 19.9 Code: 70290-6 Heart Rate 1: 72 bpm Height: 5' Weight: 102 lbs 8 oz 09/01/2015 Blood Pressure 1: 128/68 Code: 8480-6 BMI: 19.8 Code: 86731-7 Height: 5' Weight: 102 lbs 05/26/2015 Blood Pressure 1: 140/68 Code: 8480-6 BMI: 19.0 Code: 98491-7 Heart Rate 1: 70 bpm Height: 5' Weight: 98 lbs 05/21/2015 Blood Pressure 1: 140/78 Code: 8480-6 BMI: 19.2 Code: 10354-2 Heart Rate 1: 85 bpm Height: 5' SpO2: 95% Weight: 99 lbs 05/07/2015 Blood Pressure 1: 140/82 Code: 8480-6 BMI: 19.0 Code: 48292-9 Heart Rate 1: 76 bpm Height: 5' Weight: 98 lbs 03/23/2015 Blood Pressure 1: 142/60 Code: 8480-6 BMI: 18.6 Code: 99865-1 Heart Rate 1: 52 bpm Height: 5' Weight: 96 lbs 03/09/2015 Blood Pressure 1: 138/74 Code: 8480-6 BMI: 18.8 Code: 14903-3 Heart Rate 1: 60 bpm Height: 5' Weight: 97 lbs 10/30/2014 Blood Pressure 1: 112/82 Code: 8480-6 BMI: 19.0 Code: 94947-6 Heart Rate 1: 64 bpm Height: 5' Weight: 98 lbs 07/11/2014 Blood Pressure 1: 146/70 Code: 8480-6 BMI: 18.8 Code: 62655-8 Heart Rate 1: 68 bpm Height: 5' Weight: 97 lbs 05/20/2014 Blood Pressure 1: 142/76 Code: 8480-6 BMI: 18.6 Code: 56027-1 Heart Rate 1: 78 bpm Height: 5' Weight: 96 lbs 04/29/2014 Blood Pressure 1: 138/62 Code: 8480-6 BMI: 18.3 Code: 86568-0 Heart Rate 1: 80 bpm Height: 5' Weight: 94 lbs 8 oz 03/20/2014 Blood Pressure 1: 142/68 Code: 8480-6 BMI: 18.6 Code: 41899-7 Heart Rate 1: 96 bpm Height: 5' Weight: 96 lbs 03/05/2014 Blood Pressure 1: 122/72 Code: 8480-6 BMI: 18.8 Code: 26244-3 Heart Rate 1: 82 bpm Height: 5' SpO2: 97% Weight: 97 lbs 01/29/2014 Blood Pressure 1: 124/78 Code: 8480-6 BMI: 18.8 Code: 87062-9 Heart Rate 1: 60 bpm Height: 5' Weight: 97 lbs 01/14/2014 Blood Pressure 1: 120/58 Code: 8480-6 BMI: 19.2 Code: 14820-1 Heart Rate 1: 56 bpm Height: 5' Temperature: 36.9 (C) / 98.4 (F) Weight: 99 lbs 12/25/2013 Blood Pressure 1: 118/78 Code: 8480-6 BMI: 19.2 Code: 78086-4 Heart Rate 1: 68 bpm Height: 5' Weight: 99 lbs 11/27/2013 Blood Pressure 1: 102/68 Code: 8480-6 BMI: 19.4 Code: 62990-7 Heart Rate 1: 56 bpm Height: 5' Weight: 100 lbs 09/12/2013 Blood Pressure 1: 142/62 Code: 8480-6 BMI: 19.7 Code: 43979-7 Heart Rate 1: 72 bpm Height: 5'1" Weight: 104 lbs 08/15/2013 Blood Pressure 1: 152/92 Code: 8480-6 Heart Rate 1: 96 bpm Weight: 102 lbs 08/01/2013 Blood Pressure 1: 122/68 Code: 8480-6 BMI: 19.1 Code: 06113-2 Heart Rate 1: 68 bpm Height: 5'1" Weight: 101 lbs 07/01/2013 Blood Pressure 1: 130/72 Code: 8480-6 BMI: 19.5 Code: 76125-6 Heart Rate 1: 80 bpm Height: 5'1" Temperature: 36.1 (C) / 97.0 (F) Weight: 103 lbs 05/29/2013 Blood Pressure 1: 126/72 Code: 8480-6 BMI: 19.3 Code: 30254-4 Heart Rate 1: 80 bpm Height: 5'1" Weight: 102 lbs 05/15/2013 Blood Pressure 1: 156/74 Code: 8480-6 BMI: 19.3 Code: 85867-9 Heart Rate 1: 88 bpm Height: 5'1" Weight: 102 lbs 04/23/2013 Blood Pressure 1: 140/82 Code: 8480-6 BMI: 19.3 Code: 00225-6 Heart Rate 1: 72 bpm Height: 5'1" Weight: 102 lbs 03/21/2013 Blood Pressure 1: 142/74 Code: 8480-6 Heart Rate 1: 92 bpm Weight: 103 lbs 01/16/2013 Blood Pressure 1: 120/56 Code: 8480-6 BMI: 20.0 Code: 56301-8 Heart Rate 1: 72 bpm Height: 5'1" Weight: 106 lbs 12/19/2012 Blood Pressure 1: 118/66 Code: 8480-6 Heart Rate 1: 84 bpm Weight: 12/10/2012 Blood Pressure 1: 132/62 Code: 8480-6 Heart Rate 1: 64 bpm Weight: 103 lbs 10/30/2012 Blood Pressure 1: 122/66 Code: 8480-6 BMI: 19.9 Code: 69678-7 Heart Rate 1: 61 bpm Height: 5'1" [...] 1: 118/72 Code: 8480-6 BMI: 21.0 Code: 09929-2 Heart Rate 1: 66 bpm Height: 5'1" Respiratory Rate: 16 bpm Weight: 111 lbs 2012 Blood Pressure 1: 122/62 Code: 8480-6 Heart Rate 1: 68 bpm Weight: 110 lbs 12/01/2011 Blood Pressure 1: 150/60 Code: 8480-6 BMI: 20.8 Code: 84437-0 Heart Rate 1: 60 bpm Height: 5'1" Respiratory Rate: 16 bpm Weight: 110 lbs 11/23/2011 Blood Pressure 1: 170/68 Code: 8480-6 BMI: 21.1 Code: 52971-0 Heart Rate 1: 64 bpm Height: 5'1" Temperature: 36.3 (C) / 97.3 (F) Weight: 111 lbs 8 oz 10/17/2011 Blood Pressure 1: 148/62 Code: 8480-6 Heart Rate 1: 74 bpm 10/03/2011 Blood Pressure 1: 102/48 Code: 8480-6 BMI: 21.4 Code: 37771-2 Heart Rate 1: 76 bpm Height: 5'1" Respiratory Rate: 16 bpm Weight: 113 lbs 08/08/2011 Blood Pressure 1: 128/60 Code: 8480-6 Heart Rate 1: 80 bpm Respiratory Rate: 16 bpm Weight: 113 lbs 05/09/2011 Blood Pressure 1: 130/62 Code: 8480-6 BMI: 20.7 Code: 67242-5 Heart Rate 1: 64 bpm Height: 5'1" Respiratory Rate: 16 bpm Weight: 109 lbs 8 oz 03/29/2011 Blood Pressure 1: 120/62 Code: 8480-6 BMI: 20.2 Code: 40797-6 Heart Rate 1: 66 bpm Height: 5'1" Respiratory Rate: 12 bpm Weight: 107 lbs 03/15/2011 Blood Pressure 1: 120/64 Code: 8480-6 BMI: 19.8 Code: 10759-8 Heart Rate 1: 76 bpm Height: 5'1" [...] contacts 03/20/2014 sat next to neighbor in [place] who had tonsillitis sore throat Pertinent Findings [...] data Encounters Encounter Performer Location Codes Date ([id number]) 37543 EST. PATIENT, LEVEL III Diagnosis: Chronic atrial fibrillation[ICD10: I48.2] Diagnosis: Cough[ICD10: R05] Laura Bahena MD, [facility] CPT-4: 23722 12/06/2018 ([id number]) 11769 EST. PATIENT, LEVEL III Diagnosis: Acute laryngopharyngitis[ICD10: J06.0] Laura Bahena MD, [facility] CPT-4: 11581 11/30/2018 ([id number]) 26445 EST. 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 PATIENT, LEVEL III Diagnosis: Raynaud's syndrome without gangrene[ICD10: I73.00] Diagnosis: Pain in left hand[ICD10: M79.642] Diagnosis: Pain in right hand[ICD10: M79.641] Karma Bahena MD, [facility] CPT- 4: 40001 10/09/2018 71427 EST. PATIENT, LEVEL III Diagnosis: Cough[ICD10: R05] Diagnosis: Acute laryngopharyngitis[ICD10: J06.0] Diagnosis: Other allergic rhinitis[ICD10: J30.89] Diagnosis: Raynaud's syndrome without gangrene[ICD10: I73.00] Katharine Bahena MD [facility] CPT-4: 83874 09/12/2018 ([id number]) 05279 EST. PATIENT, LEVEL IV Diagnosis: Raynaud's syndrome without gangrene[ICD10: I73.00] Diagnosis: Pain in right toe(s)[ICD10: M79.674] Diagnosis: Chronic atrial fibrillation[ICD10: I48.2] Karma Bahena MD [facility] CPT-4: 63477 08/14/2018 ([id number]) 61771 EST. PATIENT, LEVEL IV Diagnosis: Chronic atrial fibrillation[ICD10: I48.2] Diagnosis: Sebaceous cyst[ICD10: L72.3] Diagnosis: Raynaud's syndrome without gangrene[ICD10: I73.00] Karma Bahena MD [facility] CPT-4: 33175 07/26/2018 ([id number]) 83774 EST. PATIENT, LEVEL IV Diagnosis: Essential (primary) hypertension[ICD10: I10] Diagnosis: Atrophy of thyroid (acquired)[ICD10: E03.4] Diagnosis: Gastro-esophageal reflux disease without esophagitis[ICD10: K21.9] Karma Bahena MD [facility] CPT-4: 93142 06/04/2018 ([id number]) 98265 EST. 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 PATIENT, LEVEL IV Diagnosis: Essential (primary) hypertension[ICD10: I10] Diagnosis: Chronic atrial fibrillation[ICD10: I48.2] Diagnosis: Allergic rhinitis due to pollen[ICD10: J30.1] Diagnosis: Cough[ICD10: R05] Karma Bahena MD [facility] CPT-4: 32284 12/14/2017 [id number] EST. PATIENT, LEVEL IV Diagnosis: Other allergic rhinitis[ICD10: J30.89] Katharine Bahena MD [facility] CPT- 4: 50345 12/07/2017 ([id number]) 99608 EST. PATIENT, LEVEL IV Diagnosis: Essential (primary) hypertension[ICD10: I10] Diagnosis: Chronic atrial fibrillation[ICD10: I48.2] Diagnosis: Atrophy of thyroid (acquired)[ICD10: E03.4] Karma Bahena MD [facility] CPT-4: 16956 11/14/2017 ([id number]) 87910 EST. PATIENT, LEVEL IV Diagnosis: Essential (primary) hypertension[ICD10: I10] Diagnosis: Localized edema[ICD10: R60.0] Diagnosis: Encounter for immunization[ICD10: Z23] Diagnosis: Age-related osteoporosis without current pathological fracture[ICD10: M81.0] Karma Bahena MD, [facility] CPT-4: 57380 03/27/2017 ([id number]) 96301 EST. PATIENT, LEVEL IV Diagnosis: Essential (primary) hypertension[ICD10: I10] Diagnosis: Chronic atrial fibrillation[ICD10: I48.2] Diagnosis: Dysphonia[ICD10: R49.0] Karma Bahena MD, [facility] CPT-4: 14911 01/19/2017 ([id number]) Miscellaneous no charge Diagnosis: Cough[ICD10: R05] Diagnosis: Acute upper respiratory infection, unspecified[ICD10: J06.9] Laura Bahena MD, [facility] CPT-4: 37742 11/29/2016 34086 EST. PATIENT, LEVEL III Diagnosis: Cough[ICD10: R05] Diagnosis: Acute laryngopharyngitis[ICD10: J06.0] Katharine Bahena MD, [facility] CPT- 4: 79542 11/23/2016 ([id number]) 49438 EST. PATIENT, LEVEL III Diagnosis: Acute laryngopharyngitis[ICD10: J06.0] Laura Bahena MD, [facility] CPT-4: 84604 11/21/2016 ([id number]) Miscellaneous no charge Diagnosis: Laceration without foreign body of right forearm, subsequent encounter[ICD10: S51.811D] Karma Bahena MD [facility] CPT-4: 63524 11/17/2016 ([id number]) Miscellaneous no charge Diagnosis: Laceration without foreign body of right forearm, subsequent encounter[ICD10: S51.811D] Karma Bahena MD [facility] CPT-4: 51027 11/14/2016 ([id number]) Miscellaneous no charge Diagnosis: Laceration without foreign body of right forearm, subsequent encounter[ICD10: S51.811D] Karma Bahena MD [facility] CPT-4: 53171 11/11/2016 ([id number]) Miscellaneous no charge Diagnosis: Laceration without foreign body of right forearm, subsequent encounter[ICD10: S51.811D] Karma Bahena MD [facility] CPT-4: 78165 11/10/2016 ([id number]) 70589 EST. PATIENT, LEVEL II Diagnosis: Laceration without foreign body of right forearm, subsequent encounter[ICD10: S51.811D] Karma Bahena MD [facility] CPT-4: 10781 11/08/2016 ([id number]) 64848 EST. PATIENT, LEVEL IV Diagnosis: Atrophy of thyroid (acquired)[ICD10: E03.4] Diagnosis: Chronic atrial fibrillation[ICD10: I48.2] Diagnosis: Laceration without foreign body of right forearm, subsequent encounter[ICD10: S51.811D] Karma Bahena MD, [facility] CPT-4: 79805 11/02/2016 ([id number]) 29625 EST. PATIENT, LEVEL III Diagnosis: Laceration without foreign body of right forearm, initial encounter[ICD10: S51.811A] Laura Bahena MD, [facility] CPT-4: 46599 10/27/2016 ([id number]) 71748 EST. PATIENT, LEVEL IV Diagnosis: Essential (primary) hypertension[ICD10: I10] Diagnosis: Chronic atrial fibrillation[ICD10: I48.2] Karma Bahena MD, [facility] CPT-4: 41539 08/31/2016 ([id number]) 23274 EST. PATIENT, LEVEL IV Diagnosis: Localized edema[ICD10: R60.0] Diagnosis: Essential (primary) hypertension[ICD10: I10] Diagnosis: Abdominal distension (gaseous)[ICD10: R14.0] Karma Bahena MD, [facility] CPT-4: 32881 07/27/2016 ([id number]) 79619 EST. PATIENT, LEVEL IV Diagnosis: Essential (primary) hypertension[ICD10: I10] Diagnosis: Chronic atrial fibrillation[ICD10: I48.2] Diagnosis: Localized edema[ICD10: R60.0] Karma Bahena MD [facility] CPT-4: 62205 06/23/2016 ([id number]) 51675 EST. PATIENT, LEVEL III Diagnosis: Localized edema[ICD10: R60.0] Karma Bahena MD [facility] CPT-4: 08661 06/09/2016 ([id number]) 21524 EST. PATIENT, LEVEL III Diagnosis: Irritable bowel syndrome without diarrhea[ICD10: K58.9] Diagnosis: Pruritus ani[ICD10: L29.0] Karma Bahena MD [facility] CPT-4: 35424 05/25/2016 ([id number]) 70840 EST. PATIENT, LEVEL III Diagnosis: Abdominal distension (gaseous)[ICD10: R14.0] Diagnosis: Encounter for screening mammogram for malignant neoplasm of breast[ICD10: Z12.31] Karma Bahena MD [facility] CPT-4: 14661 05/17/2016 ([id number]) 99443 EST. PATIENT, LEVEL IV Diagnosis: Essential (primary) hypertension[ICD10: I10] Diagnosis: First degree hemorrhoids[ICD10: K64.0] Diagnosis: Encounter for immunization[ICD10: Z23] Karma Bahena MD [facility] CPT-4: 49741 03/24/2016 ([id number]) 68433 EST. PATIENT, LEVEL III Diagnosis: Epidermal cyst[ICD10: L72.0] Diagnosis: Essential (primary) hypertension[ICD10: I10] Diagnosis: Chronic atrial fibrillation[ICD10: I48.2] Diagnosis: 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[ICD10: Z79.899] Karma Bahena MD [facility] CPT-4: 48392 02/02/2016 ([id number]) 69383 EST. PATIENT, LEVEL III Diagnosis: Acute anal fissure[ICD10: K60.0] Karma Bahena MD [facility] CPT-4: 11998 2016 ([id number]) 81328 EST. PATIENT, LEVEL III Diagnosis: Allergic rhinitis due to pollen[ICD10: J30.1] Diagnosis: Acute upper respiratory infection, unspecified[ICD10: J06.9] Laura Bahena MD, [facility] CPT-4: 22600 12/21/2015 ([id number]) 40471 EST. PATIENT, LEVEL III Diagnosis: Essential (primary) hypertension[ICD10: I10] Diagnosis: Chronic atrial fibrillation[ICD10: I48.2] Karma Bahena MD, [facility] CPT-4: 78824 11/03/2015 ([id number]) Miscellaneous no charge Diagnosis: Impacted cerumen, right ear[ICD10: H61.21] Katharine Bahena MD, [facility] CPT-4: 64945 10/19/2015 86681 EST. PATIENT, LEVEL IV Diagnosis: Impacted cerumen, right ear[ICD10: H61.21] Diagnosis: Other allergic rhinitis[ICD10: J30.89] Katharine Bahena MD, [facility] CPT- 4: 61388 10/13/2015 ([id number]) 26339 EST. PATIENT, LEVEL IV Diagnosis: Essential (primary) hypertension[ICD10: I10] Diagnosis: Chronic atrial fibrillation[ICD10: I48.2] Diagnosis: Urge incontinence[ICD10: N39.41] Diagnosis: Age-related osteoporosis without current pathological fracture[ICD10: M81.0] Karma Bahena MD, [facility] CPT-4: 99616 09/29/2015 ([id number]) 14213 EST. PATIENT, LEVEL IV Diagnosis: Essential (primary) hypertension[ICD10: I10] Diagnosis: Chronic atrial fibrillation[ICD10: I48.2] Diagnosis: Irritable bowel syndrome without diarrhea[ICD10: K58.9] Diagnosis: Unspecified hemorrhoids[ICD10: K64.9] Karma Bahena MD, [facility] CPT-4: 88090 09/15/2015 ([id number]) 98837 EST. 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 PATIENT, LEVEL III Diagnosis: Hematuria, unspecified[ICD10: R31.9] Diagnosis: Other urethritis[ICD10: N34.2] Diagnosis: Other specified noninflammatory disorders of vagina[ICD10: N89.8] Karma Bahena MD, [facility] CPT-4: 01328 05/26/2015 56350 EST. PATIENT, LEVEL IV Diagnosis: Gout, unspecified[ICD10: M10.9] Karma Bahena MD, [facility] CPT-4: 76990 05/21/2015 ([id number]) 18831 EST. PATIENT, LEVEL IV Diagnosis: Chronic atrial fibrillation[ICD10: I48.2] Diagnosis: Irritable bowel syndrome without diarrhea[ICD10: K58.9] Diagnosis: Cystocele, unspecified[ICD10: N81.10] Diagnosis: Urge incontinence[ICD10: N39.41] Diagnosis: Fecal smearing[ICD10: R15.1] Diagnosis: Hypothyroidism, unspecified[ICD10: E03.9] Karma Bahena MD, [facility] CPT-4: 30293 05/07/2015 ([id number]) 05907 EST. PATIENT, LEVEL III Diagnosis: Atrial fibrillation[ICD9: 427.31] Diagnosis: Bloating[ICD9: 787.3] Karma Bahena MD, [facility] CPT-4: 28952 03/23/2015 ([id number]) 77613 EST. PATIENT, LEVEL IV Diagnosis: Abdominal pain[ICD9: 789.00] Diagnosis: Atrial fibrillation[ICD9: 427.31] Diagnosis: ENCNTR LONG-ANTICOAG USE[ICD9: V58.61] Karma Bahena MD, [facility] CPT-4: 60485 03/09/2015 ([id number]) 88068 EST. PATIENT, LEVEL IV Diagnosis: HEMATURIA NOS[ICD9: 599.70] Diagnosis: Atrial fibrillation[ICD9: 427.31] Diagnosis: HYPOTHYROIDISM[ICD9: 244.9] Karma Bahena MD, [facility] CPT-4: 72932 10/30/2014 ([id number]) 56414 EST. PATIENT, LEVEL IV Diagnosis: Atrial fibrillation[ICD9: 427.31] Diagnosis: ALLERGIC RHINITIS[ICD9: 477.9] Diagnosis: Need for pneumococcal vaccine[ICD9: V03.82] Diagnosis: Osteoarthritis[ICD9: 715.90] Diagnosis: Osteoporosis[ICD9: 733.00] Karma Bahena MD [facility] CPT-4: 68163 07/11/2014 ([id number]) 97331 EST. PATIENT, LEVEL III Diagnosis: Urge incontinence[ICD9: 788.31] Diagnosis: Dysuria[ICD9: 788.1] Karma Bahena MD [facility] CPT-4: 18078 05/20/2014 ([id number]) 90282 EST. PATIENT, LEVEL IV Diagnosis: Atrial fibrillation[ICD9: 427.31] Diagnosis: Hematuria[ICD9: 599.70] Diagnosis: Dysuria[ICD9: 788.1] Diagnosis: ESSENTIAL HYPERTENSION[ICD9: 401.9] Karma Bahena MD [facility] CPT- 4: 13523 04/29/2014 ([id number]) 19000 EST. PATIENT, LEVEL IV Diagnosis: ESSENTIAL HYPERTENSION[ICD9: 401.9] Diagnosis: ALLERGIC RHINITIS[ICD9: 477.9] Karma Bahena MD [facility] CPT-4: 08041 03/20/2014 ([id number]) 14957 EST. PATIENT, LEVEL IV Diagnosis: ESSENTIAL HYPERTENSION[ICD9: 401.9] Diagnosis: ATRIAL FIBRILLATION[ICD9: 427.31] Diagnosis: Irritable bowel[ICD9: 564.1] Karma Bahena MD [facility] CPT-4: 13486 03/05/2014 ([id number]) 35111 EST. PATIENT, LEVEL IV Diagnosis: Esophageal reflux[ICD9: 530.81] Diagnosis: DIARRHEA[ICD9: 787.91] Diagnosis: ABDOM PAIN NOS SITE[ICD9: 789.00] Karma Bahena MD [facility] CPT- 4: 78108 01/29/2014 ([id number]) 50813 EST. PATIENT, LEVEL III Diagnosis: Irritable bowel[ICD9: 564.1] Diagnosis: DIARRHEA[ICD9: 787.91] Laura Bahena MD [facility] CPT-4: 58165 01/14/2014 ([id number]) 86193 EST. PATIENT, LEVEL IV Diagnosis: ESSENTIAL HYPERTENSION[ICD9: 401.9] Diagnosis: ATRIAL FIBRILLATION[ICD9: 427.31] Diagnosis: URGE INCONTINENCE[ICD9: 788.31] Diagnosis: MALAISE AND FATIGUE[ICD9: 780.79] Diagnosis: Dyspnea[ICD9: 786.09] Karma Bahena MD, [facility] CPT-4: 36425 12/25/2013 ([id number]) 31763 EST. PATIENT, LEVEL IV Diagnosis: ESSENTIAL HYPERTENSION[SNOMED: 53511543] Diagnosis: ATRIAL FIBRILLATION[ICD9: 427.31] Diagnosis: Abdominal pain[ICD9: 789.00] Diagnosis: ESOPHAGEAL REFLUX[ICD9: 530.81] Karma Bahena MD [facility] CPT-4: 43804 11/27/2013 ([id number]) 49311 EST. PATIENT, LEVEL IV Diagnosis: ESSENTIAL HYPERTENSION[SNOMED: 99731316] Diagnosis: ATRIAL FIBRILLATION[ICD9: 427.31] Diagnosis: Chronic osteoarthritis[ICD9: 715.90] Karma Bahena MD [facility] CPT- 4: 56898 09/12/2013 ([id number]) 70169 EST. PATIENT, LEVEL III Diagnosis: ESSENTIAL HYPERTENSION[SNOMED: 58604151] Diagnosis: Bruising[ICD9: 924.9] Diagnosis: ENCNTR LONG-RX USE NEC[ICD9: V58.69] Karma Bahena MD [facility] CPT- 4: 56066 08/15/2013 ([id number]) 08981 EST. PATIENT, LEVEL IV Diagnosis: ESSENTIAL HYPERTENSION[SNOMED: 72840252] Diagnosis: Hematuria[ICD9: 599.70] Diagnosis: Dysuria[ICD9: 788.1] Karma Bahena MD, [facility] CPT-4: 41467 08/01/2013 ([id number]) 19048 EST. PATIENT, LEVEL III Diagnosis: UTI[ICD9: 599.0] Diagnosis: Hematuria[ICD9: 599.70] Laura Bahena MD, [facility] CPT-4: 97369 07/01/2013 ([id number]) 88958 EST. PATIENT, LEVEL III Diagnosis: ATRIAL FIBRILLATION[ICD9: 427.31] Diagnosis: ESSENTIAL HYPERTENSION[SNOMED: 90366724] Karma Bahena MD [facility] CPT-4: 66775 05/29/2013 ([id number]) 32609 EST. PATIENT, LEVEL IV Diagnosis: Atrial fibrillation[ICD9: 427.31] Diagnosis: Encounter for monitoring digoxin therapy[ICD9: V58.83] Diagnosis: ESSENTIAL HYPERTENSION[SNOMED: 45945290] Karma Bahena MD [facility] CPT-4: 59162 05/15/2013 ([id number]) 23904 EST. PATIENT, LEVEL IV Diagnosis: ESSENTIAL HYPERTENSION[SNOMED: 55417938] Diagnosis: ATRIAL FIBRILLATION[ICD9: 427.31] Diagnosis: PALPITATIONS[ICD9: 785.1] Diagnosis: Dizziness and giddiness[ICD9: 780.4] Karma Bahena MD [facility] CPT- 4: 94831 04/23/2013 ([id number]) 42409 EST. PATIENT, LEVEL III Diagnosis: OTHER CONSTIPATION[ICD9: 564.09] Diagnosis: ABDOM PAIN NOS SITE[ICD9: 789.00] Laura Bahena MD [facility] CPT- 4: 03495 03/21/2013 ([id number]) 97496 EST. PATIENT, LEVEL IV Diagnosis: ESSENTIAL HYPERTENSION[SNOMED: 89183037] Diagnosis: Atrial fibrillation[ICD9: 427.31] Karma Bahena MD [facility] CPT- 4: 26442 01/16/2013 ([id number]) Miscellaneous no charge Diagnosis: CELLULITIS OF HAND[ICD9: 682.4] Karma Bahena MD [facility] CPT-4: 71886 12/19/2012 ([id number]) Miscellaneous no charge Diagnosis: ENCOUNTER FOR THERAPEUTIC DRUG MONITORING[ICD9: V58.83] Diagnosis: CELLULITIS OF HAND[ICD9: 682.4] Karma Bahena MD [facility] CPT-4: 81014 12/14/2012 Miscellaneous no charge Diagnosis: CELLULITIS OF HAND[ICD9: 682.4] Karma Bahena MD, [facility] CPT-4: 93749 12/12/2012 [id number] EST. PATIENT, LEVEL II Diagnosis: CELLULITIS OF HAND[ICD9: 682.4] Diagnosis: ENCNTR LONG-RX USE NEC[ICD9: V58.69] Diagnosis: LONG-TERM USE ANTICOAGUL[ICD9: V58.61] [facility] CPT-4: 26856 12/11/2012 ([id number]) 64247 EST. PATIENT, LEVEL III Diagnosis: CELLULITIS OF HAND[ICD9: 682.4] Karma Bahena MD, [facility] CPT-4: 25144 12/10/2012 ([id number]) 08400 EST. PATIENT, LEVEL IV Diagnosis: Elevated digoxin level[ICD9: 796.0] Diagnosis: ATRIAL FIBRILLATION[ICD9: 427.31] Diagnosis: Inflammatory arthritis[ICD9: 714.9] Karma Bahena MD [facility] CPT- 4: 14341 10/30/2012 ([id number]) 19952 EST. PATIENT, LEVEL IV Diagnosis: Atrial fibrillation[ICD9: 427.31] Diagnosis: Anticoagulant long-term use[ICD9: V58.61] Diagnosis: ESSENTIAL HYPERTENSION[SNOMED: 96956047] Karma Bahena MD [facility] CPT-4: 66247 08/08/2012 ([id number]) 17490 EST. PATIENT, LEVEL IV Diagnosis: ABDOM PAIN NOS SITE[ICD9: 789.00] Diagnosis: Constipation - functional[ICD9: 564.09] Diagnosis: EDEMA[ICD9: 782.3] Diagnosis: ATRIAL FIBRILLATION[ICD9: 427.31] [facility] CPT- 4: 40343 07/11/2012 ([id number]) 18388 EST. PATIENT, LEVEL III Diagnosis: Cystocele[ICD9: 618.01] Diagnosis: Rectocele[ICD9: 618.04] Karma Bahena MD, [facility] CPT-4: 21016 05/08/2012 ([id number]) 07407 EST. PATIENT, LEVEL IV Diagnosis: Atrial fibrillation[ICD9: 427.31] Diagnosis: ESSENTIAL HYPERTENSION[SNOMED: 63786789] Diagnosis: Status post small bowel resection[ICD9: V45.89] Diagnosis: ENCNTR LONG-ANTICOAG USE[ICD9: V58.61] Karma Bahena MD [facility] CPT-4: 09556 04/18/2012 ([id number]) Patient admitted to the hospital from clinic (NO CHARGE) Diagnosis: Abdominal pain[ICD9: 789.00] Diagnosis: Nausea and vomiting[ICD9: 787.01] Diagnosis: ESSENTIAL HYPERTENSION[SNOMED: 60239898] Karma Bahena MD, [facility] CPT-4: 65318B 03/13/2012 ([id number]) 42688 EST. PATIENT, LEVEL IV Diagnosis: ATRIAL FIBRILLATION[ICD9: 427.31] Diagnosis: URGE INCONTINENCE[ICD9: 788.31] Diagnosis: MALAISE AND FATIGUE[ICD9: 780.79] Diagnosis: Dyspnea[ICD9: 786.09] Karma Bahena MD [facility] CPT-4: 73124 02/20/2012 24253 EST. PATIENT, LEVEL IV Diagnosis: Hematuria[ICD9: 599.70] Diagnosis: Vaginal yeast infection[ICD9: 112.1] Diagnosis: ATRIAL FIBRILLATION[ICD9: 427.31] Laura Bahena MD [facility] CPT- 4: 15710 02/13/2012 ([id number]) 86767 EST. PATIENT, LEVEL IV Diagnosis: Atrial fibrillation[ICD9: 427.31] Diagnosis: Anticoagulation goal of INR 2 to 3[ICD9: V58.83] Diagnosis: Urinary incontinence, urge[ICD9: 788.31] Diagnosis: ESSENTIAL HYPERTENSION[SNOMED: 91444361] Karma Bahena MD, [facility] CPT-4: 38594 02/01/2012 ([id number]) 88340 EST. PATIENT, LEVEL IV Diagnosis: Atrial fibrillation[ICD9: 427.31] Diagnosis: Anticoagulant long-term use[ICD9: V58.61] Diagnosis: ESSENTIAL HYPERTENSION[SNOMED: 03873377] Karma Bahena MD [facility] CPT-4: 10348 2012 44305 EST. PATIENT, LEVEL IV Diagnosis: UTI[ICD9: 599.0] Diagnosis: ESSENTIAL HYPERTENSION[SNOMED: 04788480] Diagnosis: MALAISE AND FATIGUE[ICD9: 780.79] Diagnosis: Esophageal reflux[ICD9: 530.81] Karma Bahena MD, [facility] CPT-4: 94521 12/01/2011 ([id number]) 01236 EST. PATIENT, LEVEL IV Diagnosis: UTI (urinary tract infection)[ICD9: 599.0] Diagnosis: ESSENTIAL HYPERTENSION[SNOMED: 15915679] Diagnosis: URGE INCONTINENCE[ICD9: 788.31] Karma Bahena MD, [facility] CPT-4: 58185 11/23/2011 ([id number]) 54607 EST. PATIENT, LEVEL IV Diagnosis: ESSENTIAL HYPERTENSION[SNOMED: 23578458] Diagnosis: IMPACTED CERUMEN[ICD9: 380.4] Diagnosis: MALAISE AND FATIGUE[ICD9: 780.79] Diagnosis: EDEMA[ICD9: 782.3] Karma Bahena MD, [facility] CPT-4: 44704 10/03/2011 68311 EST. PATIENT, LEVEL IV Diagnosis: ESSENTIAL HYPERTENSION[SNOMED: 28913119] Diagnosis: Generalized osteoarthritis[ICD9: 715.09] Diagnosis: OSTEOPOROSIS[ICD9: 733.00] Karma Bahena MD, [facility] CPT-4: 24343 08/08/2011 04933 EST. PATIENT, LEVEL IV Diagnosis: Muscle cramp[ICD9: 729.82] Diagnosis: Torticollis[ICD9: 723.5] Diagnosis: Rash[ICD9: 782.1] Karma Bahena MD, [facility] CPT-4: 33601 05/09/2011 96649 EST. PATIENT, LEVEL IV Diagnosis: Leg cramps, sleep related[ICD9: 327.52] Diagnosis: Underweight[ICD9: 783.22] Karma Bahena MD, [facility] CPT-4: 12789 03/29/2011 [id number] EST. PATIENT, LEVEL IV Diagnosis: UTI[ICD9: 599.0] Diagnosis: Urge incontinence[ICD9: 788.31] Diagnosis: Loss of weight[ICD9: 783.21] Diagnosis: Palpitations[ICD9: 785.1] Diagnosis: Peripheral neuropathy, idiopathic[ICD9: 356.9] [facility] CPT-4: 20144 03/15/2011 Plan of Care Planned Activity Notes [...] to uncontrolled afib -continue to monitor 12/06/2018 Patient Education: Patient Medication Summary Completed 12/06/2018 Visit Plan: Pharyngitis-Discussed natural and expected course of this diagnosis and need to alert me if symptoms do not follow expected course, or if any worse. Recommended salt water gargles as needed for pain. Ty lenol/motrin as needed for fever/discomfort. 11/30/2018 Appointment: Laura Colin WPtel: [phone] [phone] [place] (30 min) Complex 11/30/2018 Patient Education: Patient Medication Summary Completed 11/30/2018 Appointment: Karma Bahena WPtel: [phone] [facility] [place] (15 min) Moderate 11/14/2018 Visit Plan: Hypothyroidism [...] for imvexxy 10/31/2018 Appointment: Karma Bahena WPtel: [phone] [facility] [place] (15 min) Moderate 10/31/2018 Patient Education: Patient Medication Summary Completed 10/31/2018 Visit Plan: Hand pain with arthritis - Raynaud syndrome - discussed with pt - RX for Voltaren gel sent to the pharmacy. continue with amlodipine. 10/09/2018 Appointment: Karma Bahena WPtel: [facility]6[address] (15 min) Moderate 10/09/2018 Patient Education: Patient Medication Summary Completed 10/09/2018 Appointment: Karma Bahena WPtel: [facility]0 [facility]6[address] (15 min) Moderate 10/01/2018 Visit Plan: URI [...] or concerns. 09/12/2018 Appointment: Katharine Dai WPtel: [facility]3 [facility] (15 min) Moderate 09/12/2018 Patient Education: Patient Medication Summary Completed 09/12/2018 Appointment: Karma Bahena WPtel: [facility]8 [facility] (15 min) Moderate 08/16/2018 Visit Plan: I [...] surgically removed. 08/14/2018 Appointment: Karma Bahena WPtel: [facility] [place] (15 min) Moderate 08/14/2018 Patient Education: Patient [...] surgically removed. 07/26/2018 App[facility]ment[phone] [place] (15 min) Moderate 07/26/2018 Patient Education: Patient [...] not improving. 06/04/2018 Appointment: Karma Bahena WPtel: [phone] [facility] (15 min) Moderate 06/04/2018 Patient Education: Patient Medication Summary Completed 06/04/2018 Appointment: Karma Bahena WPtel: [facility] (15 min) Moderate 03/14/2018 Visit [...] q 3 months or q 6 m onths based on previous levels of control. 01/31/2018 Appointment: Katharine Dai WPtel: [facility]4 [facility] [facility] - Annual Wellness Visit 01/31/2018 Patient Education: [...] allergy spray. 12/14/2017 Appointment: Karma Bahena WPtel: [address] [place], [place] [phone] (15 min) Moderate 12/14/2017 Patient Education: Patient [...] allergy spray. 12/07/2017 Appointment: Katharine Dai WPtel: [facility]6 [facility] (15 min) Moderate 12/07/2017 Patient Education: Patient [...] q 3 months or q 6 m [facility] based on previous levels of control. 11/14/2017 Appointment: [phone] (15 min) Moderate 11/14/2017 Patient Education: Patient [...] shot today. 03/27/2017 Appointment: [facility]Ptel[phone] (15 min) Moderate 03/27/2017 Patient Education: Patient [...] care surrogate. 01/23/2017 Appointment: Katharine Dai WPtel: [facility]5 [facility] [facility] - Annual Wellness Visit 01/23/2017 Patient Education: [...] becoming uncontrolled. 01/19/2017 Appointment: Karma Bahena WPtel: [address] [place], [place] [phone] (15 min) Moderate 01/19/2017 Patient Education: Patient Medication Summary Completed 01/19/2017 Care Plan: Referral Order SNOMED-CT : 917307802 Pending 01/19/2017 Appointment: Karma Bahena WPtel: [address] [place], [place] [phone] (15 min) Moderate 01/04/2017 Appointment: Karma Bahena WPtel: [address] [place], [place] [phone] (15 min) Moderate 12/28/2016 Visit Plan: DUE-uiylp-oyu zpack-call if symptoms do not resolve or if any worse. Patient verbalized understanding of plan. 11/29/2016 Appointment: Laura Colin WPtel: [phone] [place] (15 min) Moderate 11/29/2016 Patient Education: Patient [...] patient's pharmacy. 11/23/2016 Appointment: Katharine Dai WPtel: [phone] [facility] (15 min) Moderate 11/23/2016 Patient Education: Patient Medication Summary Completed 11/23/2016 Visit Plan: Pharyngitis-Discussed natural and expected course of this diagnosis and need to alert me if symptoms do not follow expected course, or if any worse. Recommended salt water gargles as needed for pain. Ty lenol/motrin as needed for fever/discomfort. 11/21/2016 Appointment: Laura Colin WPtel: [facility]6 [phone] (15 min) Moderate 11/21/2016 Patient Education: [...] monitor symptoms. 11/08/2016 Appointment: Karma Bahena WPtel: [facility]1 [facility] (10 min) Simple 11/08/2016 Patient Education: Patient [...] etc. 11/02/2016 Appointment: Karma Bahena WPtel: [phone] [facility] (15 min) Moderate 11/02/2016 Appointment: Nurse Visit 11/02/2016 Patient Education: Patient Medication Summary Completed 11/02/2016 Appointment: Nurse Visit 10/31/2016 Visit Plan: Laceration-right forearm- Pt was instructed to keep the wound clean, cleanse with sterile saline, use bactroban ointment, call if redness, pustular drainage, or any other acute concerns. Follow up Monday for dressing changes. 10/27/2016 Appointment: Laura Colin WPtel: [phone] [phone] [place] (30 min) Complex 10/27/2016 Patient Education: [...] until pt is seen by Dr. Samantha lAlen - symptoms stable - continue current meds - no change in symptoms. 08/31/2016 Appointment: Karma Bahena WPtel: [facility]0 [facility] (15 min) Moderate 08/31/2016 Patient Education: Patient [...] your swelling. 07/27/2016 Appointment: Karma Bahena WPtel: [address] [place], [place] [address] (15 min) Moderate 07/27/2016 Patient Education: Patient [...] of lasix 06/23/2016 Appointment: Karma Bahena WPtel: [facility]7 [facility] (15 min) Moderate 06/23/2016 Patient Education: Patient Medication Summary Completed 06/23/2016 Patient Education: Hypertension Completed 06/23/2016 Visit Plan: Edema - with Dyspnea - RX for laxis and compression socks - pt to call if not improving. 06/09/2016 Appointment: Karma Bahena WPtel: [facility]4 [facility] [place] (15 min) Moderate 06/09/2016 Patient Education: Patient Medication Summary Completed 06/09/2016 Visit Plan: Abdominal pain and rectal itching - recommended pt to use betamethasone on vaginal/rectal region, monitor symptoms call if not improving. Continue with beano and simethicone 05/25/2016 Appointment: [facility]Ptel[phone] (15 min) Moderate 05/25/2016 Patient Education: Patient Medication Summary Completed 05/25/2016 Care Plan: SCREENINGMAMMOGRAPHYDIGITAL LOINC : 75259-2 Pending 05/20/2016 Visit Plan: Abdominal distension - use simethicone four times daily - after meals - if it does not help - in the next two weeks - call the office and we will do a ct scan of the abdomen and pelvis 05/17/2016 Appointment: Karma Bahena WPtel: [phone] (15 min) Moderate 05/17/2016 Patient Education: Patient [...] rx for prn steroid ointment 03/24/2016 Appointment: Kar[facility] Bahena WPtel[phone] (30 min) Complex 03/24/2016 Patient Education: Patient [...] allergy spray. 12/21/2015 Appointment: Laura Colin WPtel: [phone] [facility] (30 min) Complex 12/21/2015 Patient Education: Patient [...] becoming uncontrolled. 11/03/2015 Appointment: Karma Bahena WPtel: [phone] [facility] (15 min) Moderate 11/03/2015 Patient [...] wither q 3 months or q 6 mons based on previous levels of control. Left renal cancer-recently had left kidney and ureter removed in [place]-doing well 09/01/2015 Appointment: (30 min) Complex 09/01/2015 Patient Education: Patient Medication Summary Completed 09/01/2015 Patient Education: Hypertension Completed 09/01/2015 Appointment: Karma Bahena WPtel: [facility]5 [facility] (15 min) Moderate 07/13/2015 Visit Plan: Hematuria/Urethritis [...] 05/13/2015 Care Plan: Referral Order SNOMED-CT : [id number] Ordered 05/08/2015 Visit Plan: Atrial Fibrillation - [...] Dr. Collins. 05/07/2015 Appointment: Karma Bahena WPtel: [phone] [place] (15 min) Moderate 05/07/2015 Patient Education: Patient [...] becoming uncontrolled. 10/30/2014 Appointment: Karma Bahena WPtel: [phone] [place] Follow up 10/30/2014 Patient Education: Patient Medication Summary Completed 10/30/2014 Appointment: Karma Bahena WPtel: [phone] [place] Follow up 07/22/2014 Visit Plan: Atrial Fibrillation [...] in hospital. 07/11/2014 Appointment: Karma Bahena WPtel: [address] [place], [place] [phone] Sick 07/11/2014 Patient Education: Patient Medication Summary Completed 07/11/2014 Appointment: Karma Bahena WPtel: [address] [place], [place] [phone] Follow up 07/07/2014 Visit Plan: Urinary incontinence and recurrent UTI's - doctor will refer to Dr. Joel Collins - for nonsurgical intervention for potential electrical stimulation/training of pelvic floor muscles - for strengthening - can start on the treatment when you get back from [place] - will also ask him about doing a cystoscopy to look into bladder to see if there is any bladder irritation. keep using the Premarin - use about 25Cent size of cream onto finger to apply to urethra and do this three times weekly. 05/20/2014 Appointment: Karma Bahena WPtel: [address] [place], [place] [phone] Follow up 05/20/2014 Patient Education: Patient Medication Summary Completed 05/20/2014 Appointment: Karma Bahena WPtel: [address] [place], [place] [phone] Lab Draw 05/14/2014 Patient Education: Patient Medication [...] recommended vesicare. 04/29/2014 Appointment: Karma Bahena WPtel: [address] [place] [address] Follow up 04/29/2014 Patient Education: Patient Medication [...] allergy spray. 03/20/2014 Appointment: Karma Bahena WPtel: [facility]5 [facility] Sick 03/20/2014 Patient Education: Patient Medication Summary Completed [...] becoming uncontrolled. 03/05/2014 Appointment: Karma Bahena WPtel: [phone] [facility] Follow up 03/05/2014 Patient Education: Patient Medication [...] with report. 01/29/2014 Appointment: Karma Bahena WPtel: [facility]5 [facility] Follow up 01/29/2014 Patient Education: [...] exposure,and dyspnea on exertion - will ask [facility] do an overnight oxygen study on [place] as she has cardiac history, weight loss, and nocturnal hypoxemia may be a part of her weight loss and fatigue. 12/25/2013 Appointment: Karma Bahena WPtel: [phone] [facility] Follow up 12/25/2013 Patient Education: Patient Medication [...] twice daily. 11/27/2013 Appointment: Kar[facility] Bahena WPtel: [phone] Follow up 11/27/2013 Patient Education: Patient Medication [...] heart rate. Osteoarthritis - send pt to [facility] physical therapy for gereral osteoarhtritis program for strengthening and pain reduction. Hypertension - well controlled - continue with current medications, continue with no added salt diet. Pt has been encouraged to exercise daily. The pt has been advised to call the office if there are any acute concerns about change in blood pressure readings at home. 09/12/2013 Appointment: Karma Bahena WPtel: [phone] [facility] Follow up 09/12/2013 Patient Education: Patient Medication Summary Completed 09/12/2013 Patient Education: Hypertension Completed 09/12/2013 Appointment: Karma Bahena WPtel: [phone] [facility] Follow up 08/21/2013 Visit Plan: [...] coumadin-check PT/INR 08/15/2013 Appointment: Karma Bahena WPtel: [facility]5 [facility] Follow up 08/15/2013 Patient Education: [...] of urethra. 08/01/2013 Appointment: Karma Bahena WPtel: [facility] Follow up 08/01/2013 Patient Education: Patient Medication Summary Completed 08/01/2013 Patient Education: Hypertension Completed 08/01/2013 Appointment: Laura Colin WPtel: [facility]5 [phone] [place] Lab Draw 07/29/2013 Patient Education: Patient Medication Summary Completed 07/29/2013 Visit Plan: Osteoporosis-prolia on june 25-patient to let Dr Hansen know 07/01/2013 Appointment: Laura Colin WPtel: [facility]5 [phone] Follow up 07/01/2013 Appointment: Karma Bahena WPtel: [address] [place], [place] [phone] Follow up 07/01/2013 Patient Education: Patient Medication Summary Completed 07/01/2013 Appointment: Karma Bahena WPtel: [address] [place], [place] [phone] Follow up 06/25/2013 Appointment: Karma Bahena WPtel: [address] [place] [address] [place] Lab Draw 06/20/2013 Patient Education: Patient Medication Summary Completed 06/20/2013 Appointment: Karma Bahena WPtel: [address] [place] [address] [place] Lab Draw 06/19/2013 Visit Plan: Atrial [...] at home. 05/29/2013 Appointment: Karma Bahena WPtel: [phone] [facility] Follow up 05/29/2013 Patient Education: Patient Medication [...] at home. 05/15/2013 Appointment: Karma Bahena WPtel: [phone] [facility] Other 05/15/2013 Patient Education: Patient Medication Summary [...] today. 04/23/2013 Appointment: Karma Bahena WPtel: [phone] [facility] [place] Other 04/23/2013 Patient Education: Patient Medication Summary [...] this regimen. 03/21/2013 Appointment: Laura Colin WPtel: [facility]5 [phone] Follow up 03/21/2013 Patient Education: Patient [...] becoming uncontrolled. 01/16/2013 Appointment: Karma Bahena WPtel: [address] [place], [place] [phone] Follow up 01/16/2013 Patient Education: Patient Medication Summary Completed 01/16/2013 Patient Education: Hypertension Completed 01/16/2013 Visit Plan: Wound Instructions - Pt was instruced to keep the wound clean, wash with antibacterial soap, use triple antibiotic ointment, call if redness, pustular drainage, or any other acute conerns. 12/19/2012 Appointment: Karma Bahena WPtel: [address] [place], [place] [phone] Other 12/19/2012 Patient Education: Patient Medication Summary Completed 12/19/2012 Patient Education: Patient Medication Summary Completed 12/17/2012 Visit Plan: Cellulitis - improved- monitor symptoms - need to check handon Monday morning. 12/14/2012 Appointment: Karma Bahena WPtel: [address] [place], [place] [phone] Follow up 12/14/2012 Patient Education: Patient Medication Summary Completed 12/14/2012 Visit Plan: Cellulitis - improved- monitor symptoms - need to check handon Monday morning. 12/12/2012 Appointment: Karma Bahena WPtel: [address] [place], [place] [phone] Work-in 12/12/2012 Patient Education: Patient Medication Summary [...] warmth, discharge. 12/10/2012 Appointment: Karma Bahena WPtel: [phone] [facility] Other 12/10/2012 Patient Education: Patient [...] becoming uncontrolled. 10/30/2012 Appointment: Karma Bahena WPtel: [facility]5 [facility] Follow up 10/30/2012 Patient Education: Patient Medication Summary Completed 10/30/2012 Appointment: Laura Colin WPtel: [phone] [phone] Lab Draw 09/13/2012 Patient Education: Patient Medication [...] and 3.5. 08/08/2012 Appointment: Kar[facility] Bahena [facility]Ptel: [phone] Other 08/08/2012 Patient Education: Patient Medication Summary [...] this regimen. 07/11/2012 Appointment: Karma Bahena WPtel: [facility] swelling, leg edema Other 07/11/2012 Patient Education: [...] medication vaginally. 05/08/2012 Appointment: Karma Bahena WPtel: [facility] Follow up 05/08/2012 Patient Education: Patient Medication [...] during hospitalization. 04/18/2012 Appointment: Karma Bahena WPtel: [facility]5 [facility] Follow up 04/18/2012 Patient Education: Patient Medication Summary Completed 04/18/2012 Patient Education: High Blood Pressure: Essential Hypertension Completed 04/18/2012 Appointment: Karma Bahena WPtel: [address] [place], [place] [phone] [place] Follow up 04/09/2012 Appointment: Karma Bahena WPtel: [facility]5 [facility] [place] Lab Draw 04/04/2012 Appointment: Laura Colin WPtel: [phone] [place] Lab Draw 03/19/2012 Visit Plan: Abdominal [...] Hypertension Completed 03/13/2012 Appointment: Karma Bahena WPtel: [facility] [facility] Draw 03/08/2012 Patient Education: Patient Medication [...] change in blood pressure readings at home. Ynes- recommended cardiac rehab. 02/20/2012 Appointment: Karma Bahena WPtel: [facility] Other 02/20/2012 Patient Education: Patient Medication Summary [...] uncontrolled. 02/13/2012 Appointment: Laura Colin WPtel: [phone] Other 02/13/2012 Patient Education: Patient Medication Summary Completed 02/13/2012 Appointment: Karma Bahena WPtel: [phone] [place] Lab Draw 02/07/2012 Visit Plan: Atrial Fibrillation [...] medication. 02/01/2012 Appointment: Kar[facility] Bahena WPtel: [phone] Other 02/01/2012 Patient Education: Patient Medication Summary Completed 02/01/2012 Patient Education: High Blood Pressure: Essential Hypertension Completed 02/01/2012 Appointment: Karma Bahena WPtel: [phone] [place] Lab Draw 01/17/2012 Visit Plan: Atrial Fibrillation [...] at home. 2012 Appointment: Karma Bahena WPtel: [facility]0 [facility]6[address] Other 2012 Patient Education: Patient Medication Summary Completed 2012 Patient Education: High Blood Pressure: Essential Hypertension Completed 2012 Appointment: Karma Bahena WPtel: [facility]8 [address] Follow up 12/20/2011 Visit Plan: Dicyclomine up [...] emergency room. 12/01/2011 Appointment: Karma Bahena WPtel: [address] [place] [address] Other 12/01/2011 Patient Education: Patient Medication Summary [...] infection resolves. 11/23/2011 Appointment: Laura Colin WPtel: [address] [place], [place] [phone] [place] Other 11/23/2011 Patient Education: Patient Medication Summary Completed 11/23/2011 Patient Education: High Blood Pressure: Essential Hypertension Completed 11/23/2011 Visit Plan: Cerumen Impaction - The impacted cerumen was removed with the use of either ear currette alone or in combination with ear curette and water pick. The patient tolerated the procedure without incident and had improvement in hearing 10/17/2011 Appointment: Laura Colin WPtel: [address] [place], [place] [phone] [place] Other 10/17/2011 Patient Education: Patient Medication Summary [...] by irrigation. 10/03/2011 Appointment: Karma Bahena WPtel: [facility] [address] Other 10/03/2011 Patient Education: Patient Medication Summary [...] is evidence. 08/08/2011 Appointment: Karma Bahena WPtel: [facility] [address] Other 08/08/2011 Patient Education: Patient Medication Summary Completed 08/08/2011 Patient Education: High Blood Pressure: Essential Hypertension Completed 08/08/2011 Visit Plan: Muscle cramps - the cramps are a little better, continue with the Diltiazem and it is okay to use the over the counter supplement with quinine - but use it sparingly. For the rash, use the prescripti on the business segment manager prescribed for the itching , call if the rash is not improved. Torticollis - continue with physical therapy, call if the neck muscles do not continue to show improvement. 05/09/2011 Appointment: Karma Bahena WPtel: [address] [place] [address] Other 05/09/2011 Patient Education: Patient Medication Summary [...] water aerobics. 03/29/2011 Appointment: Karma Bahena WPtel: [address] [place] [address] Other 03/29/2011 Patient Education: Patient Medication Summary Completed 03/29/2011 Appointment: Karma Bahena WPtel: [address] [place] [address] Other 03/17/2011 Visit Plan: UTI - UA negative. Urge incontinence- restart on the vesicare- at 5 mg. Continue to avoid caffinated foods/fluids. Peripheral Neuropathy - per room cooler installer report - Continue with the metanex. Loss of weight - WEIGHT CHECK IN 2 WKS. Palpitations- likely stress induced. If the symptoms worsen, call the office. 03/15/2011 Appointment: Karma Bahena WPtel: [address] [place] [address] Follow up 03/15/2011 Patient Education: Patient Medication [...] avoid caffinated foods/fluids. Peripheral Neuropathy - per room cooler installer report - Continue with the metanex. Loss [...] therefore, would not change the medication. . [id number] zpack-call if symptoms do not resolve or [...] For the rash, use the prescription the business segment manager prescribed for the itching , call if [...] heart rate. Osteoarthritis - send pt to [facility] physical therapy for gereral osteoarhtritis program for [...] change in blood pressure readings at home. [place] and rom[facility]- recommended cardiac rehab. rita mahad hearing aide drying beads - ask your [...] monitor symptoms - need to check handon Jeremiah morning. . Abdominal pain and rectal itching [...] had left kidney and ureter removed in [place]- doing well . Hematuria - check UA. [...] recommended a referral to dr. jeff - SERGEI poon. Atrial Fibrillation - pt on chronic [...] the treatment when you get back from [place] - will also ask him about doing [...] the treatment when you get back from [place] - will also ask him about doing [...] exposure,and dyspnea on exertion - will ask [facility] do an overnight oxygen study [...] Jeff until pt is seen by Dr. Singh Afib - symptoms stable - continue current meds [...]
[2018-12-10] MEDS ORDERED: L.AC1CAP6 PO (15:58)
[2018-12-10] MEDS ORDERED: SOLI10TA2 PO ×2 (15:58)
[2018-12-10] MEDS ORDERED: LEVO75TA6 PO (15:58)
[2018-12-10] MEDS ORDERED: DEXT1TAB3 PO ×2 (15:58)
[2018-12-10] MEDS ORDERED: ACET325T38 PO (15:58)
[2018-12-10] MEDS ORDERED: MULT1TAB69 PO ×2 (15:58)
[2018-12-10] MEDS ORDERED: AMLO5TAB9 PO ×2 (15:58)
[2018-12-10] MEDS ORDERED: LOTE5GEL OD (15:58)
[2018-12-10] MEDS ORDERED: SPIR25TA5 PO ×2 (15:58)
[2018-12-10] MEDS ORDERED: DOCU-143 PO (15:58)
[2018-12-10] MEDS ORDERED: OMG1KC PO ×2 (15:58)
[2018-12-10] MEDS ORDERED: DIGO125T18 PO ×2 (15:58)
[2018-12-10] MEDS ORDERED: METO-370 PO ×2 (15:58)
[2018-12-10] MEDS ORDERED: POLY17PO6 PO (15:58)
[2018-12-10] MEDS ORDERED: PANT40TA3 PO (15:58)
[2018-12-10] MEDS ORDERED: BUDE10.2 IH ×2 (15:58)
[2018-12-10] MEDS ORDERED: CHOL10007 PO ×2 (15:58)
[2018-12-10] MEDS ORDERED: ALPH1TAB8 PO (15:58)
[2018-12-10] MEDS ORDERED: CETI10TA20 PO (15:58)
[2018-12-10] MEDS ORDERED: CARB10DR OU (15:58)
[2018-12-10] MEDS ORDERED: SUCR1ORA5 PO (15:58)
[2018-12-10] MEDS ORDERED: ATOR10TA66 PO ×2 (15:58)
[2018-12-10] MEDS ORDERED: SIME125C PO (15:58)
[2018-12-10] MEDS ORDERED: GUAI120013 PO ×2 (15:58)
[2018-12-10] MEDS ORDERED: CYCL5TAB PO (15:58)
[2018-12-10] MEDS ORDERED: BRIN8DRO OS (15:58)
[2018-12-10] MEDS ORDERED: CEPH500C PO ×2 (15:58)
[2018-12-10] MEDS ORDERED: LOPE-134 PO (15:58)
[2018-12-10] MEDS ORDERED: ALPR0.254 PO ×2 (15:58)
[2018-12-10] MEDS ORDERED: ALBU90AE INH (15:58)
[2018-12-10] MEDS ORDERED: DICL100G31 TOP (16:06)
--- NOTE | 2018-12-10 16:09 | NUR ---
PATIENTS DAUGHTER SENT MILI HER MED LIST ELECTRONICALLY AND I PRINTED IT OUT AND COMPARED IT WITH THE EXT MED HX. THE DIGOXIN IS FILLED DAILY HOWEVER THE LIST AND THE PATIENT STATE IT IS EVERY OTHER DAY. METOPROLOL ER 50MG WAS FILLED DAILY HOWEVER SHE STATES THIS HAS BEEN INCREASED TO 1.5 TABS DAILY. SHE RECEIVES HER ELIQUIS THROUGH THE MAIL FROM THE DR[facility] [place], 2.5MG BID.
--- NOTE | 2018-12-10 16:30 | Diagnostic Imaging Report ---
INDICATION: Atrial fibrillation. COMPARISON: CT chest dated 10/17/2018. FINDINGS: Frontal and lateral radiographic views of the chest were obtained and show borderline enlargement of the cardiac silhouette. The pulmonary vasculature, however, is within normal limits. The lungs show a small left basilar effusion and overall hyperinflation. Calcified granulomas are also noted laterally within the left mid to upper lung field. There is no large effusion on the right. No pneumothorax is seen on either side. The bony structures show no gross acute abnormalities. IMPRESSION: 1. Small left effusion with probable background obstructive pulmonary disease. 2. Borderline prominent cardiac silhouette. Dictated by: Dictated on workstation # [id number]
--- OUTSIDE RECORDS SUMMARY | 2018-12-10 16:41 | XMS REPORT | CCD ---
Author Author Laura Colin Organization Karma Bahena MD, [facility] Address [address] [place] [address] Phone Care Team Providers Care Dental Ceramist Helper Name Role Phone Karma Bahena PP Unavailable CCM Unavailable Summary Purpose Interface Exchange Insurance Providers Payer name Policy type / Coverage type Covered constitution party ID Effective Begin Date Effective End Date WPS Medicare Part B Medicare Part B [id number] 2018 Unknown AARP Medicare Part B [id number] 2018 Unknown Family history Sister Diagnosis Age [...] Unknown House 03/15/[address]: 954850133 Never smoker 03/15/2011 Has the patient ever used illegal drugs? Unknown Has never used illegal drugs 03/15/2011 Allergies, Adverse Reactions, Alerts Substance Reaction Codes Entered Date Inactivated Date Status BACTINE RxNorm: 972341 03/04/2011 No Inactive Date Active MICONAZOLE RxNorm: 6932 03/04/2011 No Inactive Date Active NEOSPORIN RxNorm: 939040 03/04/2011 No Inactive Date Active NEOMYCIN RxNorm: 7299 03/04/2011 No Inactive Date Active CORTISPORIN RxNorm: 07755 03/04/2011 No Inactive Date Active bactrim RxNorm: 485413 03/13/2012 No Inactive Date Active AUGMENTIN diarrhea RxNorm: 052584 2016 No Inactive Date Active METRONIDAZOLE Unknown [...] 401.9 ICD-10: I10 Active 12/25/2013 Unknown 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 ICD-9: V58.83 ICD-10: Z79.899 [...] 706.2 ICD-10: L72.0 Active 02/01/2016 Unknown Other [facility] (current) drug therapy ICD-9: V58.69 ICD-10: Z79.899 [...] ICD-9: 401.9 ICD-10: I10 12/25/2013 Active 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 ICD-9: V58.83 ICD-10: Z79.899 [...] ICD-9: 706.2 ICD-10: L72.0 02/01/2016 Active Other [facility]ci (current) drug therapy ICD-9: V58.69 ICD-10: Z79.899 [...] Fill Instructions digoxin 125 mcg tablet RxNorm: 014654 Tablet(s) every other day 12/06/2018 11/30/2019 Active Keflex 500 mg capsule RxNorm: 138362 1 Capsule(s) PO TID 11/30/2018 12/06/2018 Inactive pantoprazole 40 mg tablet,delayed release RxNorm: 619925 1 TABLET(S) PO DAILY 11/29/2018 11/23/2019 Active amlodipine 5 mg tablet RxNorm: 101544 Tablet(s) 1/2 TABLET(S) PO DAILY MAY TAKE AN EXTRA 1/2 PILL AT THE END OF THE DAY IF BLOOD PRESSURE IS ELEVATED OVER 140 11/29/2018 05/27/2019 Active cyclobenzaprine 5 mg tablet RxNorm: 658596 1/2 Tablet(s) PO TID TABLET(S) 1/2 TABLET(S) PO Q8 NEEDED MUSCLE SPASMS 10/31/2018 04/28/2019 Active Imvexxy Starter Pack 4 mcg vaginal insert, dose pack RxNorm: 3337662 1 dose VAG BIW 10/31/2018 01/28/2019 Active Voltaren 1 % topical gel RxNorm: 677699 2 Gram(s) TOP QID on left shoulder and bilateral hands 10/17/2018 05/14/2019 Active PA APPROVED UNTIL JUL 09 2019 [id number] amlodipine 5 mg tablet RxNorm: 495689 1/2 TABLET(S) PO DAILY MAY TAKE AN EXTRA 1/2 PILL AT THE END OF THE DAY IF BLOOD PRESSURE IS ELEVATED OVER 140 10/15/2018 11/28/2018 Inactive Patient requests 90 days supply Voltaren 1 % topical gel RxNorm: 048839 2 Gram(s) TOP QID on left shoulder and bilateral hands 10/09/2018 10/16/2018 Inactive levothyroxine 75 mcg tablet RxNorm: 294818 1 Tablet(s) PO daily 09/19/2018 01/16/2019 Active Keflex 500 mg capsule RxNorm: 049451 1 Capsule(s) PO TID 09/12/2018 09/18/2018 Inactive spironolactone 25 mg tablet RxNorm: 518514 1 Tablet(s) PO BID 08/14/2018 11/06/2019 Active see new directions and quantity cyclobenzaprine 5 mg tablet RxNorm: 519749 Tablet(s) TABLET(S) 1/2 TABLET(S) PO Q8 NEEDED MUSCLE SPASMS 08/14/2018 10/30/2018 Inactive Nitro-Bid 2 % transdermal ointment RxNorm: 988609 1 dime size amount TD BID to fingers and toes 08/14/2018 09/12/2018 Inactive cyclobenzaprine 5 mg tablet RxNorm: 514845 TABLET(S) 1/2 TABLET(S) PO Q8 NEEDED MUSCLE SPASMS 08/06/2018 08/13/2018 Inactive amlodipine 5 mg tablet RxNorm: 537450 1/2 Tablet(s) PO daily may take an extra 1/2 pill at the end of the day if blood pressure is elevated over 140 07/26/2018 10/14/2018 Inactive cefdinir 300 mg capsule RxNorm: 877181 1 Capsule(s) PO BID 06/20/2018 06/26/2018 Inactive cefdinir 300 mg capsule RxNorm: 699100 1 Capsule(s) PO BID 06/20/2018 06/19/2018 Inactive metoprolol succinate ER 50 mg tablet,extended release 24 hr RxNorm: 122575 1.5 Tablet(s) daily 06/15/2018 03/11/2019 Active sucralfate 100 mg/mL oral suspension RxNorm: 702158 2 Teaspoon(s) PO TID as needed with reflux symptoms 06/04/2018 No Stop Date Active Vesicare 10 mg tablet RxNorm: 115445 1 TABLET(S) PO EVERY OTHER DAY 05/14/2018 01/08/2019 Active levothyroxine 50 mcg tablet RxNorm: 551157 1 TABLET(S) PO DAILY 04/30/2018 09/18/2018 Inactive Patient requests 90 days supply spironolactone 25 mg tablet RxNorm: 439876 1 Tablet(s) PO daily 03/14/2018 08/13/2018 Inactive levothyroxine 50 mcg tablet RxNorm: 883208 1 Tablet(s) PO daily 02/01/2018 04/29/2018 Inactive Eliquis 2.5 mg tablet RxNorm: 1689375 1 Tablet(s) PO BID 01/31/2018 02/20/2018 Inactive levothyroxine 50 mcg tablet RxNorm: 628792 1 Tablet(s) PO daily 01/31/2018 01/31/2018 Inactive Eliquis 2.5 mg tablet RxNorm: 1536573 TAKE 1 TABLET BY MOUTH TWICE DAILY 01/23/2018 07/21/2018 Inactive metoprolol succinate ER 50 mg tablet,extended release 24 hr RxNorm: 677080 1 TABLET(S) PO DAILY 01/23/2018 01/30/2018 Inactive metoprolol succinate ER 50 mg tablet,extended release 24 hr RxNorm: 858900 1.5 Tablet(s) daily 01/22/2018 06/14/2018 Inactive lisinopril 20 mg tablet RxNorm: 257947 1/2 Tablet(s) daily 01/19/2018 01/21/2018 Inactive Patient requests 90 days supply Singulair 10 mg tablet RxNorm: 518598 TAKE 1 TABLET BY MOUTH AT BEDTIME 01/18/2018 04/17/2018 Inactive Patient requests 90 days supply Singulair 10 mg tablet RxNorm: 764506 Tablet(s) PO 01/17/2018 01/17/2018 Inactive digoxin 125 mcg tablet RxNorm: 632250 1 TABLET(S) PO DAILY 01/03/2018 12/05/2018 Inactive Symbicort 160 mcg-4.5 mcg/actuation HFA aerosol inhaler RxNorm: 3176863 2 Puff(s) INH BID 12/14/2017 04/12/2018 Inactive please dispense an aerochamber for patient as well as her symbicort cyclobenzaprine 5 mg tablet RxNorm: 859376 Tablet(s) 1/2 TABLET(S) PO Q8 NEEDED MUSCLE SPASMS 12/14/2017 08/05/2018 Inactive pantoprazole 40 mg tablet,delayed release RxNorm: 720205 1 Tablet(s) PO daily 12/14/2017 11/28/2018 Inactive ProAir RespiClick 90 mcg/actuation breath activated RxNorm: 2786561 1-2 INH QID as needed shortness of breath 12/14/2017 07/11/2018 Inactive cyclobenzaprine 5 mg tablet RxNorm: 959092 1/2 TABLET(S) PO Q8 NEEDED MUSCLE SPASMS 12/08/2017 12/13/2017 Inactive betamethasone dipropionate 0.05 % topical ointment RxNorm: 512409 1 Application TOP TID use topically on the rectal tissue three times daily x 1 week then as needed 11/13/2017 No Stop Date Active Premarin 0.625 mg/gram vaginal cream RxNorm: 923328 1/2 GRAM(S) VAG TIW 11/13/2017 10/30/2018 Inactive cyclobenzaprine 5 mg tablet RxNorm: 819820 1/2 TABLET(S) PO Q8 NEEDED MUSCLE SPASMS 10/17/2017 12/07/2017 Inactive Vesicare 10 mg tablet RxNorm: 204656 1 Tablet(s) PO every other day 10/17/2017 04/14/2018 Inactive lisinopril 20 mg tablet RxNorm: 440401 1 TABLET(S) PO DAILY 10/02/2017 01/18/2018 Inactive Patient requests 90 days supply levothyroxine 75 mcg tablet RxNorm: 474725 1 TABLET(S) PO DAILY 09/25/2017 01/30/2018 Inactive spironolactone 25 mg tablet RxNorm: 727788 1 TABLET(S) PO DAILY 08/16/2017 03/13/2018 Inactive cyclobenzaprine 5 mg tablet RxNorm: 712448 1/2 TABLET(S) PO Q8 NEEDED MUSCLE SPASMS 08/16/2017 10/16/2017 Inactive Eliquis 2.5 mg tablet RxNorm: 6970987 TAKE 1 TABLET BY MOUTH TWICE DAILY 07/26/2017 01/21/2018 Inactive cyclobenzaprine 5 mg tablet RxNorm: 376276 1/2 Tablet(s) PO Q8 as needed muscle spasms 06/19/2017 08/15/2017 Inactive lisinopril 20 mg tablet RxNorm: 944772 1 TABLET(S) PO DAILY 06/12/2017 10/01/2017 Inactive metoprolol succinate ER 50 mg tablet,extended release 24 hr RxNorm: 203981 1 TABLET(S) PO DAILY 04/07/2017 01/01/2018 Inactive spironolactone 25 mg tablet RxNorm: 848721 1 Tablet(s) PO daily 03/27/2017 03/13/2018 Inactive acyclovir 800 mg tablet RxNorm: 482193 1 Tablet(s) PO TID 03/21/2017 03/30/2017 Inactive acyclovir 800 mg tablet RxNorm: 526758 1 Tablet(s) PO TID 03/21/2017 03/20/2017 Inactive levothyroxine 75 mcg tablet RxNorm: 606414 1 Tablet(s) PO daily 03/16/2017 09/11/2017 Inactive spironolactone 25 mg tablet RxNorm: 732973 1 TABLET(S) PO DAILY 02/09/2017 03/26/2017 Inactive lisinopril 20 mg tablet RxNorm: 907257 1 TABLET(S) PO DAILY 01/02/2017 05/31/2017 Inactive Zithromax Z-Claudio 250 mg tablet RxNorm: 434335 1 Tablet(s) PO UD 11/29/2016 12/03/2016 Inactive ZPACK Keflex 500 mg capsule RxNorm: 211713 1 Capsule(s) PO TID 11/23/2016 12/02/2016 Inactive guaifenesin 400 mg tablet RxNorm: 040652 1 Tablet(s) PO Q6 as needed 11/23/2016 11/27/2016 Inactive omeprazole 40 mg capsule,delayed release RxNorm: 976233 1 Capsule(s) PO QPM 11/02/2016 12/13/2017 Inactive digoxin 125 mcg tablet RxNorm: 629539 1 TABLET(S) PO DAILY 10/27/2016 07/23/2017 Inactive cyclobenzaprine 5 mg tablet RxNorm: 856022 1/2 Tablet(s) PO Q8 PRN 10/25/2016 06/18/2017 Inactive prn muscle spasms Augmentin 500 mg-125 mg tablet RxNorm: 969386 1 Tablet(s) PO BID 10/24/2016 11/02/2016 Inactive Lasix 20 mg tablet RxNorm: 894815 Tablet(s) PRN one to two times a week if needed 07/27/2016 No Stop Date Active Patient requests 90 days supply spironolactone 25 mg tablet RxNorm: 367028 1 Tablet(s) PO daily 07/27/2016 02/08/2017 Inactive Diflucan 150 mg tablet RxNorm: 313863 1 Tablet(s) PO daily 07/27/2016 08/02/2016 Inactive lisinopril 20 mg tablet RxNorm: 761048 1 Tablet(s) PO daily 07/12/2016 01/01/2017 Inactive Lasix 20 mg tablet RxNorm: 082550 1 TABLET(S) PO EVERY OTHER DAY EVERY OTHER DAY 06/10/2016 07/26/2016 Inactive Patient requests 90 days supply potassium chloride ER 10 mEq capsule,extended release RxNorm: 279357 1 CAPSULE(S) PO EVERY OTHER DAY 06/10/2016 07/26/2016 Inactive Patient requests 90 days supply potassium chloride ER 10 mEq capsule,extended release RxNorm: 982610 1 Capsule(s) PO every other day 06/09/2016 06/09/2016 Inactive Lasix 20 mg tablet RxNorm: 708208 1 Tablet(s) PO every other day every other day 06/09/2016 06/09/2016 Inactive levothyroxine 88 mcg tablet RxNorm: 536657 1 Tablet(s) PO daily 05/11/2016 11/06/2016 Inactive Premarin 0.625 mg/gram vaginal cream RxNorm: 092507 1/2 Gram(s) VAG TIW 03/24/2016 03/18/2017 Inactive metoprolol succinate ER 50 mg tablet,extended release 24 hr RxNorm: 038514 1 Tablet(s) PO daily 03/24/2016 03/18/2017 Inactive pantoprazole 40 mg tablet,delayed release RxNorm: 448707 1 Tablet(s) PO daily 02/08/2016 11/01/2016 Inactive betamethasone dipropionate 0.05 % topical ointment RxNorm: 859558 1 Application TOP TID use topically on the rectal tissue three times daily x 1 week then as needed 02/02/2016 11/12/2017 Inactive pantoprazole 40 mg tablet,delayed release RxNorm: 331082 1 Tablet(s) PO daily 2016 02/07/2016 Inactive alprazolam 0.25 mg tablet RxNorm: 631045 1 Tablet(s) PO Q6 as needed 12/04/2015 No Stop Date Active Vesicare 10 mg tablet RxNorm: 485467 1 Tablet(s) PO every other day 11/03/2015 10/16/2017 Inactive alprazolam 0.25 mg tablet RxNorm: 574862 1 Tablet(s) PO Q6 as needed 11/03/2015 12/03/2015 Inactive Premarin 0.625 mg/gram vaginal cream RxNorm: 022284 1/2 Gram(s) VAG TIW 11/03/2015 03/23/2016 Inactive levothyroxine 88 mcg tablet RxNorm: 412560 1 Tablet(s) PO daily 11/03/2015 05/10/2016 Inactive Diflucan 150 mg tablet RxNorm: 323149 1 Tablet(s) PO daily 10/19/2015 10/25/2015 Inactive cetirizine 10 mg chewable tablet RxNorm: 8997382 1 Tablet(s) PO daily 10/13/2015 11/11/2015 Inactive cetirizine 10 mg capsule RxNorm: 7869180 1 Capsule(s) PO daily 10/13/2015 11/11/2015 Inactive Vesicare 10 mg tablet RxNorm: 049726 1/2 TABLET(S) PO BID 09/21/2015 11/02/2015 Inactive betamethasone dipropionate 0.05 % topical ointment RxNorm: 397059 1 Application TOP TID use topically on the rectal tissue three times daily x 1 week then as needed 09/15/2015 02/01/2016 Inactive lisinopril 20 mg tablet RxNorm: 095155 1 Tablet(s) PO daily 09/01/2015 07/11/2016 Inactive digoxin 125 mcg tablet RxNorm: 932468 1 Tablet(s) PO daily 09/01/2015 08/25/2016 Inactive Augmentin 500 mg-125 mg tablet RxNorm: 922456 1 Tablet(s) PO TID 05/26/2015 06/04/2015 Inactive Pyridium 200 mg tablet RxNorm: 9726529 1 Tablet(s) PO TID 05/26/2015 05/27/2015 Inactive levothyroxine 88 mcg tablet RxNorm: 781340 1 Tablet(s) PO daily except 1/2 pill on monday and 05/07/2015 11/02/2015 Inactive digoxin 125 mcg tablet RxNorm: 206008 1 Tablet(s) PO daily 05/07/2015 08/31/2015 Inactive lisinopril 20 mg tablet RxNorm: 497680 1 TABLET(S) PO BID 04/13/2015 09/01/2015 Inactive Coumadin 1 mg tablet RxNorm: 761814 1 TABLET(S) PO DAILY 03/31/2015 08/31/2015 Inactive Coumadin 2 mg tablet RxNorm: 738360 4MG IN AM AND 1MG AT NIGHT TABLET(S) PO DAILY DIRECTED. 03/31/2015 08/31/2015 Inactive levothyroxine 88 mcg tablet RxNorm: 780438 1 Tablet(s) PO daily 03/23/2015 05/06/2015 Inactive alprazolam 0.25 mg tablet RxNorm: 483469 Tablet(s) PO 03/23/2015 04/06/2015 Inactive levothyroxine 88 mcg tablet RxNorm: 555109 1 Tablet(s) PO daily 01/28/2015 03/22/2015 Inactive levothyroxine 88 mcg tablet RxNorm: 049017 1 Tablet(s) PO daily 01/28/2015 01/27/2015 Inactive diltiazem ER 120 mg capsule,extended release RxNorm: 309486 1 Capsule(s) PO BID patient would like 4 months at a time 01/06/2015 09/28/2015 Inactive digoxin 125 mcg tablet RxNorm: 473830 Tablet(s) 1 TABLET(S) PO DAILY 12/24/2014 12/23/2014 Inactive pt will be paying palomares (On $4 list)Patient requests 90 days supply digoxin 125 mcg tablet RxNorm: 390252 Tablet(s) 1 TABLET(S) PO DAILY M W F Sat and 2 tabs on T TH 12/24/2014 05/06/2015 Inactive pt will be paying palomares (On $4 list)Patient requests 90 days supply dicyclomine 20 mg tablet RxNorm: 838439 1 Tablet(s) PO daily 11/17/2014 08/31/2015 Inactive one ac dinner and up to tid prn levothyroxine 88 mcg tablet RxNorm: 140946 1 Tablet(s) PO daily 11/03/2014 01/27/2015 Inactive Premarin 0.625 mg/gram vaginal cream RxNorm: 647587 1 APPLICATION VAG 1 APPLICATOR PER VAGINA 3 TIMES PER WEEK 11/03/2014 07/30/2015 Inactive digoxin 125 mcg tablet RxNorm: 149313 1 TABLET(S) PO DAILY 09/29/2014 12/23/2014 Inactive pt will be paying palomares (On $4 list)Patient requests 90 days supply digoxin 125 mcg tablet RxNorm: 773094 1 TABLET(S) PO DAILY 07/11/2014 04/06/2015 Inactive Vesicare 10 mg tablet RxNorm: 950009 1/2 Tablet(s) PO BID 05/20/2014 05/14/2015 Inactive Levaquin 500 mg tablet RxNorm: 944086 1 Tablet(s) PO daily 05/06/2014 05/08/2014 Inactive take probiotic BID while on ABT Levaquin 500 mg tablet RxNorm: 662279 1 Tablet(s) PO daily 05/02/2014 05/05/2014 Inactive take probiotic BID while on ABT diltiazem ER 120 mg capsule,extended release RxNorm: 227447 1 Capsule(s) PO BID patient would like 4 months at a time 04/29/2014 2015 Inactive Vesicare 10 mg tablet RxNorm: 912044 1/2 Tablet(s) PO BID 04/29/2014 05/19/2014 Inactive lisinopril 20 mg tablet RxNorm: 036623 1 Tablet(s) PO BID 03/20/2014 03/14/2015 Inactive diltiazem 90 mg tablet RxNorm: 064422 1/2 TABLET(S) PO QPM 03/04/2014 04/28/2014 Inactive also 180 q am diltiazem ER 120 mg capsule,extended release RxNorm: 468987 1 Capsule(s) PO daily patient would like 4 months at a time 01/29/2014 04/28/2014 Inactive Vesicare 10 mg tablet RxNorm: 279003 1 Tablet(s) PO QHS 01/14/2014 04/28/2014 Inactive Coumadin 2 mg tablet RxNorm: 412704 4mg in AM and 1mg at night Tablet(s) PO daily as directed. 12/25/2013 03/30/2015 Inactive Metanx 3 mg-35 mg-2 mg tablet RxNorm: 1 Tablet(s) PO daily 12/25/2013 11/02/2015 Inactive digoxin 125 mcg tablet RxNorm: 982818 1 Tablet(s) PO daily 12/25/2013 09/28/2014 Inactive pt will be paying palomares (On $4 list) Coumadin 2 mg tablet RxNorm: 452874 7.5 wed 5mg other Tablet(s) PO as directed. 12/03/2013 12/24/2013 Inactive omeprazole 20 mg tablet,delayed release RxNorm: 494934 1 Tablet(s) PO BID 11/27/2013 04/28/2014 Inactive Coumadin 2 mg tablet RxNorm: 896796 5 mg daily Tablet(s) PO as directed. 11/26/2013 12/02/2013 Inactive 5 mg daily Xanax 0.25 mg tablet RxNorm: 608301 1 Tablet(s) PO Q6 PRN 11/11/2013 12/25/2013 Inactive alprazolam 0.25 mg tablet RxNorm: 805908 tablet oral 11/11/2013 03/22/2015 Inactive sucralfate 1 gram tablet RxNorm: 951157 1 Tablet(s) PO AC & HS 11/04/2013 11/03/2013 Inactive sucralfate 1 gram tablet RxNorm: 125660 1 Tablet(s) PO AC & HS 11/04/2013 01/02/2014 Inactive Synthroid 100 mcg tablet RxNorm: 681163 1 Tablet(s) PO daily 10/31/2013 10/25/2014 Inactive Synthroid 100 mcg tablet RxNorm: 032174 1 Tablet(s) PO daily 09/30/2013 10/29/2013 Inactive Vesicare 10 mg tablet RxNorm: 289406 1 Tablet(s) PO QHS 09/30/2013 01/13/2014 Inactive Lotemax 0.5 % eye ointment RxNorm: 9881488 ointment opht 09/06/2013 12/10/2013 Inactive levothyroxine 100 mcg tablet RxNorm: 441734 tablet oral 09/05/2013 11/02/2014 Inactive Synthroid 100 mcg tablet RxNorm: 647819 1 Tablet(s) PO daily 09/05/2013 09/29/2013 Inactive Prolia 60 mg/mL Sub-Q Syringe RxNorm: 335332 1 Milliliter(s) SQ 06/25/2013 11/02/2015 Inactive dicyclomine 20 mg tablet RxNorm: 140064 1 Tablet(s) PO daily 06/24/2013 06/18/2014 Inactive one ac dinner and up to tid prn omeprazole 20 mg tablet,delayed release RxNorm: 048212 1 Tablet(s) PO BID 06/24/2013 11/26/2013 Inactive Cipro 500 mg tablet RxNorm: 938412 1 Tablet(s) PO BID 06/20/2013 06/26/2013 Inactive diltiazem ER 120 mg capsule,extended release RxNorm: 943428 1 Capsule(s) PO daily patient would like 4 months at a time 06/03/2013 01/28/2014 Inactive Coumadin 2 mg tablet RxNorm: 947495 as directed Tablet(s) PO as directed. 05/29/2013 11/25/2013 Inactive 5 mg daily Synthroid 88 mcg tablet RxNorm: 500991 1 Tablet(s) PO daily 04/24/2013 04/23/2013 Inactive Synthroid 88 mcg tablet RxNorm: 666559 1 Tablet(s) PO daily 04/24/2013 07/28/2013 Inactive Premarin 0.625 mg/gram vaginal cream RxNorm: 460178 1 Application VAG 1 applicator per vagina 3 times per week 04/23/2013 04/17/2014 Inactive Influenza Virus Vaccine 0.5 mL RxNorm: IM 04/23/2013 04/23/2013 Inactive digoxin 125 mcg tablet RxNorm: 756323 1 Tablet(s) PO daily 02/20/2013 04/20/2013 Inactive pt will be paying palomares (On $4 list) Digox 125 mcg tablet RxNorm: 0418473 tablet oral 02/13/2013 03/20/2014 Inactive digoxin 125 mcg tablet RxNorm: 362577 1 Tablet(s) PO daily 02/13/2013 02/19/2013 Inactive diltiazem 90 mg tablet RxNorm: 085205 1/2 Tablet(s) PO QPM 02/13/2013 02/07/2014 Inactive also 180 q am Levoxyl 75 mcg tablet RxNorm: 214036 1 Tablet(s) PO 01/16/2013 04/23/2013 Inactive Coumadin 2 mg tablet RxNorm: 649015 6mg daily except 3mg on wed and fri Tablet(s) PO 01/15/2013 05/28/2013 Inactive 5 mg daily Coumadin 2 mg tablet RxNorm: 024174 6mg daily Tablet(s) PO 12/21/2012 01/14/2013 Inactive 5 mg daily silver sulfadiazine 1 % Topical Cream RxNorm: 879412 TOP apply to affected area with each dressing change 12/19/2012 12/25/2013 Inactive cephalexin 500 mg tablet RxNorm: 794040 1 Tablet(s) PO TID 12/11/2012 12/17/2012 Inactive digoxin 125 mcg tablet RxNorm: 724226 1 Tablet(s) PO daily 10/30/2012 02/12/2013 Inactive digoxin 125 mcg tablet RxNorm: 287408 2 tab tue thurs one other days Tablet(s) PO daily 10/23/2012 10/29/2012 Inactive lisinopril 10 mg tablet RxNorm: 362556 1 Tablet(s) PO daily 10/17/2012 08/14/2013 Inactive Cipro 500 mg tablet RxNorm: 645681 1 Tablet(s) PO BID 09/13/2012 09/19/2012 Inactive Coumadin 1 mg tablet RxNorm: 987950 1 Tablet(s) PO daily 09/03/2012 09/02/2012 Inactive Coumadin 1 mg tablet RxNorm: 348596 1 Tablet(s) PO daily 09/03/2012 12/21/2012 Inactive Coumadin 2 mg tablet RxNorm: 233037 Tablet(s) PO 07/25/2012 12/20/2012 Inactive 5 mg daily digoxin 125 mcg tablet RxNorm: 836560 1 Tablet(s) PO daily 06/28/2012 10/22/2012 Inactive Coumadin 2 mg tablet RxNorm: 586293 Tablet(s) PO 06/27/2012 07/24/2012 Inactive 5mg daily except 4mg on monday Coumadin 2 mg tablet RxNorm: 552377 Tablet(s) PO 06/19/2012 06/26/2012 Inactive 5mg e wed thur sat sun4mg mon(has 2mg and 1 mg tab) digoxin 125 mcg tablet RxNorm: 378592 1 Tablet(s) PO daily 05/29/2012 06/27/2012 Inactive Coumadin 2 mg tablet RxNorm: 872800 Tablet(s) PO 05/15/2012 06/18/2012 Inactive 5mg tue thur sat sun4mg mon(has 2mg and 1 mg tab) Coumadin 2 mg tablet RxNorm: 113545 Tablet(s) PO 04/25/2012 05/14/2012 Inactive 5mg tue thru sat4mg mon sun(has 2mg and 1 mg tab) Metanx 3 mg-35 mg-2 mg tablet RxNorm: 1 Tablet(s) PO BID 04/18/2012 12/24/2013 Inactive dicyclomine 20 mg tablet RxNorm: 581791 1 Tablet(s) PO 04/18/2012 06/23/2013 Inactive one ac dinner and up to tid prn digoxin 125 mcg tablet RxNorm: 192854 Tablet(s) PO daily except .25 on Tuesdays and 04/09/2012 05/28/2012 Inactive omeprazole 20 mg tablet,delayed release RxNorm: 639182 1 Tablet(s) PO BID 04/09/2012 04/03/2013 Inactive digoxin 125 mcg tablet RxNorm: 781025 1 Tablet(s) PO UD daily except none on Tuesdays and 03/13/2012 04/08/2012 Inactive Premarin 0.625 mg/gram Vaginal Cream RxNorm: 753361 1 Application VAG 1 applicator per vagina 3 times per week 02/20/2012 02/13/2013 Inactive omeprazole 20 mg tablet,delayed release RxNorm: 945257 1 Tablet(s) PO BID 02/13/2012 04/08/2012 Inactive Vesicare 10 mg tablet RxNorm: 385557 1 Tablet(s) PO QHS 02/13/2012 02/06/2013 Inactive Diflucan 150 mg tablet RxNorm: 303146 1 Tablet(s) PO daily 02/13/2012 02/19/2012 Inactive omeprazole 20 mg tablet,delayed release RxNorm: 029273 1 Tablet(s) PO BID 01/06/2012 02/12/2012 Inactive Calcium 600 + D(3) 600 mg (1,500)-200 unit Tab RxNorm: 678062 2 Tablet(s) PO BID 01/06/2012 08/31/2015 Inactive diltiazem 90 mg tablet RxNorm: 903880 1/2 Tablet(s) PO QPM 12/26/2011 02/12/2013 Inactive also 180 q am diltiazem ER 180 mg Cap RxNorm: 935411 1 Capsule(s) PO QAM 12/26/2011 04/08/2012 Inactive 45mg q hs Flagyl 500 mg Tab RxNorm: 963373 1 Tablet(s) PO BID 12/14/2011 12/20/2011 Inactive dicyclomine 10 mg Cap RxNorm: 843423 1 Capsule(s) PO AC & HS 12/01/2011 12/25/2011 Inactive Levaquin 500 mg Tab RxNorm: 734767 1 Tablet(s) PO daily 11/23/2011 11/29/2011 Inactive Rocephin 500 mg Solution for Injection RxNorm: 6374163 Inj 11/23/2011 11/23/2011 Inactive acyclovir 400 mg Tab RxNorm: 673186 1 Tablet(s) PO QID 11/10/2011 11/19/2011 Inactive acyclovir 400 mg Tab RxNorm: 847216 1 Tablet(s) PO QID 11/10/2011 11/09/2011 Inactive lisinopril 20 mg Tab RxNorm: 487697 1 Tablet(s) PO daily 10/03/2011 11/27/2011 Inactive lisinopril 20 mg Tab RxNorm: 879429 1 Tablet(s) PO daily 08/08/2011 10/02/2011 Inactive Reclast 5 mg/100 mL IV RxNorm: 924654 Milliliter(s) IV Yearly 06/08/2011 01/16/[address] Hansen manages Rocephin 500 mg Solution for Injection RxNorm: 5731578 1 Milliliter(s) Inj 03/04/2011 08/08/2011 Inactive Ceftin 500 mg Tab RxNorm: 824015 1 Tablet(s) PO BID 03/04/2011 08/08/2011 Inactive Vitamin D3 1,000 unit tablet RxNorm: 382163 2 Tablet(s) PO daily No Start Date Active Stool Softener 100 mg tablet RxNorm: 4491785 2 Tablet(s) PO QHS No Start Date Active Beano tablet RxNorm: 2-3 Tablet(s) PO as needed No Start Date Active Probiotic Pearls 15 mg (1 billion cell) capsule,delayed release RxNorm: 1 Capsule(s) PO daily No Start Date Active Lipitor 10 mg tablet RxNorm: 236805 1 Tablet(s) PO daily No Start Date Active Miralax 17 gram oral powder packet RxNorm: 472655 1/2 packet PO QHS No Start Date Active multivitamin Tab RxNorm: 1 Tablet(s) PO daily No Start Date Active Tylenol Extra Strength 500 mg tablet RxNorm: 926065 2 Tablet(s) PO as needed No Start Date Active Combigan 0.2 %-0.5 % eye drops RxNorm: 800670 1 Drop(s) OPH BID No Start Date Active 1 drop twice daily left eye Lexapro 5 mg tablet RxNorm: 591957 1 Tablet(s) PO daily No Start Date Active Tatiana Allergy 180 mg tablet RxNorm: 888261 1 Tablet(s) PO daily No Start Date Active Lotemax 0.5 % eye drops,suspension RxNorm: 830927 1 Drop(s) OPH right eye BID No Start Date Active Levoxyl 50 mcg tablet RxNorm: 210921 1 Tablet(s) PO daily No Start Date 01/15/2013 Inactive lisinopril-hydrochlorothiazide 20 mg-25 mg Tab RxNorm: 075976 1 Tablet(s) PO daily No Start Date 08/07/2011 Inactive Metanx 3 mg-35 mg-2 mg tablet RxNorm: 1 Tablet(s) PO daily No Start Date 04/17/2012 Inactive diltiazem CD 120 mg capsule,extended release 24 hr RxNorm: 600024 1 Capsule(s) PO daily No Start Date 09/28/2015 Inactive lisinopril 20 mg tablet RxNorm: 637104 Tablet(s) PO No Start Date Active Lumigan 0.01 % Eye Drops RxNorm: 3503751 1 Drop(s) OPH daily Left eye No Start Date 12/10/2013 Inactive prednisolone acetate 1 % Eye Drops, Susp RxNorm: 3978584 1 Drop(s) OPH BID 1 drop right eye am and hs No Start Date 11/02/2015 Inactive Eliquis 5 mg tablet RxNorm: 3771706 1 Tablet(s) PO BID No Start Date 06/08/2016 Inactive potassium gluconate (bulk) Misc RxNorm: Miscellaneous No Start Date 12/25/2011 Inactive Calcium 600 + D(3) 600 mg (1,500)-200 unit Tab RxNorm: 384891 3 Tablet(s) PO daily No Start Date 2012 Inactive Zyrtec 10 mg tablet RxNorm: 2237326 1 Tablet(s) PO daily No Start Date 08/02/2016 Inactive Synthroid 100 mcg tablet RxNorm: 340704 1 Tablet(s) PO daily No Start Date 09/04/2013 Inactive metoprolol succinate ER 50 mg tablet,extended release 24 hr RxNorm: 133982 1 Tablet(s) PO daily No Start Date 03/23/2016 Inactive Carafate 100 mg/mL oral suspension RxNorm: 108861 2 Teaspoon(s) PO as needed with reflux symptoms No Start Date 06/03/2018 Inactive Metanx 3 mg-35 mg-2 mg tablet RxNorm: 1 Tablet(s) PO daily 2pm No Start Date 11/02/2015 Inactive Lexapro 5 mg tablet RxNorm: 318946 1 Tablet(s) PO daily No Start Date 08/18/2015 Inactive Iron (dried) oral RxNorm: 93573 oral No Start Date 11/02/2015 Inactive timolol 0.5 % Eye Drops RxNorm: 309136 1 Drop(s) OPH daily left eye No Start Date 12/18/2013 Inactive multivitamin Cap RxNorm: 1 Capsule(s) PO daily No Start Date 12/25/2011 Inactive dicyclomine 10 mg Cap RxNorm: 108125 2 Capsule(s) PO daily No Start Date 11/30/2011 Inactive silver sulfadiazine 1 % Topical Cream RxNorm: 793620 TOP apply to affected area with each dressing change No Start Date 12/18/2012 Inactive magnesium oxide 400 mg Tab RxNorm: 497909 1 Tablet(s) PO daily No Start Date 11/02/2015 Inactive Pradaxa 75 mg Cap RxNorm: 5401527 1 Capsule(s) PO BID No Start Date 04/09/2012 Inactive magnesium oxide 400 mg Tab RxNorm: 381531 2 Tablet(s) PO daily magnesium plus zinc No Start Date 12/25/2011 Inactive biotin 1000 mg RxNorm: 1 PO daily No Start Date 12/25/2011 Inactive Synthroid 50 mcg Tab RxNorm: 247374 Tablet(s) PO No Start Date 12/25/2011 Inactive diltiazem ER 180 mg Cap RxNorm: 093427 1 Capsule(s) PO daily No Start Date 12/25/2011 Inactive 1 D 3 1000 iu Oral RxNorm: Oral No Start Date 12/25/2011 Inactive Coumadin 2 mg tablet RxNorm: 308436 Tablet(s) PO No Start Date 04/24/2012 Inactive 5mg tue thpo3gp mon fri sat sun(has 2mg and 1 mg tab) dicyclomine 20 mg tablet RxNorm: 401803 Tablet(s) PO No Start Date 04/17/2012 Inactive one ac dinner and up to tid prn lactobacillus acidophilus tablet RxNorm: 1 Tablet(s) PO daily No Start Date 11/03/2015 Inactive Eliquis 2.5 mg tablet RxNorm: 8794580 1 Tablet(s) PO BID No Start Date 07/25/2017 Inactive Levoxyl 75 mcg Tab RxNorm: 961966 1 Tablet(s) PO daily No Start Date 10/02/2011 Inactive digoxin 125 mcg tablet RxNorm: 514123 1 Tablet(s) PO daily No Start Date 03/12/2012 Inactive pantoprazole 40 mg tablet,delayed release RxNorm: 665534 1 Tablet(s) PO BID No Start Date 01/04/2016 Inactive cyclobenzaprine 5 mg tablet RxNorm: 170489 1/2 Tablet(s) PO Q8 PRN No Start Date 10/24/2016 Inactive diltiazem 90 mg Tab RxNorm: 054123 1/2 Tablet(s) PO QPM No Start Date 12/25/2011 Inactive Mirapex 1 mg Tab RxNorm: 821179 1 Tablet(s) PO QHS No Start Date 12/25/2011 Inactive Xanax 0.25 mg tablet RxNorm: 841926 1 Tablet(s) PO Q6 PRN No Start Date 11/10/2013 Inactive Premarin 0.625 mg/gram Vaginal Cream RxNorm: 951419 1 Application VAG 1 applicator per vagina 3 times per week No Start Date 02/19/2012 Inactive Synthroid 75 mcg Tab RxNorm: 352761 1 Tablet(s) PO daily No Start Date 04/17/2012 Inactive lisinopril 40 mg Tab RxNorm: 258884 1 Tablet(s) PO daily No Start Date 12/25/2011 Inactive Glucosamine Chondroitin Complex Advanced [id number]-1.65mg Tab RxNorm: 2 Tablet(s) PO daily No Start Date 08/08/2011 Inactive famotidine 20 mg tablet RxNorm: 080846 1 Tablet(s) PO QAM No Start Date 11/02/2015 Inactive cranberry extract 250 mg Tab RxNorm: 304322 2 Tablet(s) PO daily No Start Date 08/08/2011 Inactive Vitamin D3 1,000 unit capsule RxNorm: 776181 1 Capsule(s) PO daily No Start Date 08/31/2015 Inactive aspirin 81 mg Tab, Delayed Release RxNorm: 185111 1 Tablet(s) PO daily No Start Date 08/31/2015 Inactive diltiazem ER 120 mg capsule,extended release RxNorm: 827843 1 Capsule(s) PO daily patient would like 4 months at a time No Start Date 06/02/2013 Inactive omeprazole 20 mg Tab, Delayed Release RxNorm: 146688 2 Tablet(s) PO QHS No Start Date 2012 Inactive lisinopril 10 mg tablet RxNorm: 816769 1/2 Tablet(s) PO daily No Start Date 10/16/2012 Inactive Pred Forte 1 % Eye Drops RxNorm: 230363 1 Drop(s) OPH daily right eye No Start Date 12/25/2013 Inactive calcium carbonate 400 mg Chewable Tab RxNorm: 573442 1 Tablet(s) PO daily No Start Date 08/08/2011 Inactive Vesicare 10 mg tablet RxNorm: 569857 1 Tablet(s) PO QHS No Start Date 02/12/2012 Inactive Symbicort 160 mcg-4.5 mcg/actuation HFA aerosol inhaler RxNorm: 7358218 2 Puff(s) INH BID No Start Date 12/13/2017 Inactive potassium 99 mg tablet RxNorm: 1 Tablet(s) PO QPM No Start Date 12/25/2013 Inactive timolol 0.25 % Eye Drops RxNorm: 208208 1 Drop(s) OPH daily Left eye No Start Date 04/17/2012 Inactive diltiazem ER 90 mg capsule,extended release 12 hr RxNorm: 815611 1/2 Capsule(s) PO QPM No Start Date 04/28/2014 Inactive cyclobenzaprine 5 mg Tab RxNorm: 479935 12-1 Tablet(s) PO Q8 PRN No Start Date 12/25/2011 Inactive 1/2 - 1 tab q 8hrs prn muscle spasms Medication Administered Medication Codes Instructions Start Date Status Influenza Virus Vaccine 0.5 mL RxNorm: 04/23/2013 No longer Active Rocephin 500 mg Solution for Injection RxNorm: 1700432 11/23/2011 No longer Active Immunizations Vaccine Codes [...] hypertension ICD-10: I10 ICD-9: 401.9 01/31/2018 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 ICD-10: Z79.899 ICD-9: V58.83 [...] hemorrhoids ICD-10: K64.0 ICD-9: 455.6 03/24/2016 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 ICD-10: Z79.899 ICD-9: V58.69 [...] Code Result Date C RAP A SC 4686171 Strep A Negative 11/30/2018 Electrolytes Ord62 NA 132 mEq/L 09/25/2018 Electrolytes Ord62 K 4.1 mEq/L 09/25/2018 Electrolytes Ord62 CL 98 mEq/L 09/25/2018 Electrolytes Ord62 CO2 26.0 mEq/L 09/25/2018 Electrolytes Ord62 ANION GAP 12 09/25/2018 Comp Metabolic Qrr219 NA 130 mEq/L 09/12/2018 Comp Metabolic Dsd189 K 4.2 mEq/L 09/12/2018 Comp Metabolic Izs905 CL 98 mEq/L 09/12/2018 Comp Metabolic Vwy274 CO2 23.0 mEq/L 09/12/2018 Comp Metabolic Bxg431 ANION GAP 13 09/12/2018 Comp Metabolic Cvu166 GLUCOSE 129 mg/dL 09/12/2018 Comp Metabolic Cpv903 Creat 1.0 mg/dL 09/12/2018 Comp Metabolic Uwa929 eGFR 58 ml/min/1.73m2 09/12/2018 Comp Metabolic Adw146 BUN 28 mg/dL 09/12/2018 Comp Metabolic Sur736 B/C Ratio 28.9 Ratio 09/12/2018 Comp Metabolic Rff383 CALCIUM 9.1 mg/dL 09/12/2018 Comp Metabolic Mnq950 ALK PHOS 59 U/L 09/12/2018 Comp Metabolic Dyl409 AST(SGOT) 21 U/L 09/12/2018 Comp Metabolic Lfh698 ALT(SGPT) 19 U/L 09/12/2018 Comp Metabolic Ygd710 BILI T 0.8 mg/dL 09/12/2018 Comp Metabolic Dqe618 ALBUMIN 3.9 g/dL 09/12/2018 Comp Metabolic Sab694 TPRO 6.5 g/dL 09/12/2018 Comp Metabolic Thw218 GLOB 2.6 g/dL 09/12/2018 Comp Metabolic Hej315 A/G Ratio 1.5 Ratio 09/12/2018 Comp Metabolic Stu059 Osmo 268 mOsmo 09/12/2018 Tsh Ord6 TSH (3rd IS) 12.84 uIU/mL 09/12/2018 Influenza A+B Ydb678 Influ A+B Negative 09/12/2018 Cbc With Differential [...] 12.3 % 09/12/2018 Cbc With Differential Ord2 [place]% 12.0 % 09/12/2018 Cbc With Differential Ord2 [...] 0.85 K/ul 09/12/2018 Cbc With Differential Ord2 [place] ABS# 0.8 K/ul 09/12/2018 Cbc With Differential Ord2 Eos ABS# 0.1 K/ul 09/12/2018 Cbc With Differential Ord2 Baso ABS# 0.0 K/ul 09/12/2018 Free T4 Cyf468 FREE T4 1.10 ng/dL 09/12/2018 Free T4 Gfp137 FREE T4 1.19 ng/dL 05/08/2018 Digoxin Ord9 DIGOXIN 0.6 NG/ML 05/08/2018 Tsh Ord6 TSH (3rd IS) 10.58 uIU/mL 05/08/2018 Tsh Ord6 TSH (3rd IS) 1.07 uIU/mL 01/31/2018 Free T4 Enz897 FREE T4 1.63 ng/dL 01/31/2018 Digoxin Ord9 DIGOXIN 0.8 NG/ML 01/31/2018 C RAP A SC [id number] Strep A Negative 11/21/2016 Thyroid Antibodies 542929 THYROGLOBULIN ANTIBODY . 11/04/2016 Thyroid Antibodies 203945 THYROGLOBULIN ANTIBODY 919 IU/mL 11/04/2016 Thyroid Antibodies 639921 THYROID PEROXIDASE (TPO) AB . 11/04/2016 Thyroid Antibodies 835527 THYROID PEROXIDASE (TPO) AB 10 IU/mL 11/04/2016 Total T3 Ord42 TT3 0.64 ng/ml 11/03/2016 Free T4 Mut340 FREE T4 1.39 ng/dL 11/02/2016 Tsh Ord6 [...] Differential Ord2 RDW 13.8 % 05/26/2015 Pt Uyd0514 PT 25.0 seconds 05/26/2015 Pt Tpz2880 INR 2.4 05/26/2015 Pt Gey0692 Low Intensity - 1.5-2.0 05/26/2015 Pt Elq8177 Mod intensity - 2.0-3.0 05/26/2015 Pt Qvo9282 Hi intensity - 3.0-4.0 05/26/2015 Uric Acid [...] Digoxin Ord9 DIGOXIN 0.6 NG/ML 05/06/2015 Pt Byb7454 PT 23.3 seconds 05/06/2015 Pt Hwi5248 INR 2.1 05/06/2015 Pt Ygm1076 Low Intensity - 1.5-2.0 05/06/2015 Pt Vsj0935 Mod intensity - 2.0-3.0 05/06/2015 Pt Qxe2169 Hi intensity - 3.0-4.0 05/06/2015 Free T4 Tmt960 FREE T4 1.65 ng/dL 05/06/2015 Comp Metabolic Yii181 NA 132 mEq/L 05/06/2015 Comp Metabolic Jkv523 K 4.1 mEq/L 05/06/2015 Comp Metabolic Lky616 CL 98 mEq/L 05/06/2015 Comp Metabolic Agh046 CO2 27.0 mEq/L 05/06/2015 Comp Metabolic Xnp386 ANION GAP 11 05/06/2015 Comp Metabolic Yes995 GLUCOSE 71 mg/dL 05/06/2015 Comp Metabolic Phk666 Creat 0.7 mg/dL 05/06/2015 Comp Metabolic Hpr409 eGFR 82 ml/min/1.73m2 05/06/2015 Comp Metabolic Jxf443 BUN 16 mg/dL 05/06/2015 Comp Metabolic Zut661 B/C Ratio 22.2 Ratio 05/06/2015 Comp Metabolic Sil892 CALCIUM 9.4 mg/dL 05/06/2015 Comp Metabolic Sej156 ALK PHOS 60 U/L 05/06/2015 Comp Metabolic Bjz371 AST(SGOT) 22 U/L 05/06/2015 Comp Metabolic Oso804 ALT(SGPT) 24 U/L 05/06/2015 Comp Metabolic Okq629 BILI T 0.8 mg/dL 05/06/2015 Comp Metabolic Ymn910 ALBUMIN 4.3 g/dL 05/06/2015 Comp Metabolic Uce147 TPRO 7.6 g/dL 05/06/2015 Comp Metabolic Fld157 GLOB 3.3 g/dL 05/06/2015 Comp Metabolic Gyo927 A/G Ratio 1.3 Ratio 05/06/2015 Comp Metabolic Yir100 Osmo 264 mOsmo 05/06/2015 DIGOXIN 2115867 DIGOXIN 1.1 NG/ML 05/15/2013 PT/MC 1589862 PRO TIME 21.7 SEC 05/15/2013 PT/MC 2949559 INR MCMC 2.0 05/15/2013 CHEM 14 5666730 AST 24 U/L 04/23/2013 CHEM 14 0951002 ALT 31 IU/L 04/23/2013 CHEM 14 9646943 BUN 13 MG/DL 04/23/2013 CHEM 14 2863804 ALBUMIN 4.1 GM/DL 04/23/2013 CHEM 14 2496029 CHLORIDE 103 MMOL/L 04/23/2013 CHEM 14 7002328 BILI TOT 0.5 MG/DL 04/23/2013 CHEM 14 8284176 ALK PHOS 44 U/L 04/23/2013 CHEM 14 7068325 SODIUM 137 MMOL/L 04/23/2013 CHEM 14 2420177 CREATININE 0.61 MG/DL 04/23/2013 CHEM 14 1090860 CALCIUM 9.5 MG/DL 04/23/2013 CHEM 14 8772728 POTASSIUM 4.0 MMOL/L 04/23/2013 CHEM 14 8975851 PROT TOT 6.6 GM/DL 04/23/2013 CHEM 14 0265688 GLUCOSE 99 MG/DL 04/23/2013 CHEM 14 7801602 BICARB 27 MMOL/L 04/23/2013 CHEM 14 8038086 ANION GAP 7 MEQ/L 04/23/2013 GFR CALC 9753573 GFR AA >60 ML/MIN 04/23/2013 GFR CALC 7578500 GFR NON-AA >60 ML/MIN 04/23/2013 TSH 2467087 TSH 4.204 uIU/ML 04/23/2013 CBC 2109679 WBC 6.7 10e9/L 04/23/2013 CBC 0516714 RBC 4.19 10e12/L 04/23/2013 CBC 6672407 HGB 13.2 g/dL 04/23/2013 CBC 7163113 HCT DET 39.2 % 04/23/2013 CBC 2092136 MCV 93.6 fL 04/23/2013 CBC 0853430 MCH 31.5 pg 04/23/2013 CBC 0127535 MCHC 33.7 g/dL 04/23/2013 CBC 1124917 PLT 202 10e9/L 04/23/2013 CBC 5831362 MPV 11.4 fL 04/23/2013 CBC 3074679 YANIRA % 70.5 % 04/23/2013 CBC 2933341 LY % 19.6 % 04/23/2013 CBC 8031486 MON % 8.2 % 04/23/2013 CBC 4887180 EOS % 1.6 % 04/23/2013 CBC 7780088 BASO % 0.1 % 04/23/2013 CBC 0369934 RDW 13.7 % 04/23/2013 CBC 6767203 ABS YANIRA 4.72 10e9/L 04/23/2013 CBC 9430786 ABS LYMPH 1.31 10e9/L 04/23/2013 CBC 4965815 ABS MONO 0.55 10e9/L 04/23/2013 CBC 5046734 ABS EOS 0.11 10e9/L 04/23/2013 CBC 9192783 ABS BASO 0.01 10e9/L 04/23/2013 CBC 7443050 RDW-SD 45.7 fL 04/23/2013 PT/MC 0033068 PRO TIME 13.4 SEC 12/17/2012 PT/MC 2192600 INR MCMC 1.0 12/17/2012 PT/MC 6244525 PRO TIME 16.6 SEC 12/14/2012 PT/MC 6377055 INR MCMC 1.4 12/14/2012 PT/MC 2564156 PRO TIME 27.2 SEC 12/11/2012 PT/MC 8172222 INR MCMC 2.6 12/11/2012 DIGOXIN 2856138 DIGOXIN 2.1 NG/ML 03/08/2012 GFR CALC 6188023 GFR AA >60 ML/MIN 03/08/2012 GFR CALC 2180096 GFR NON-AA >60 ML/MIN 03/08/2012 CHEM 14 20280112 AST 16 U/L 03/08/2012 CHEM 14 20280112 ALT 14 IU/L 03/08/2012 CHEM 14 20280112 BUN 10 MG/DL 03/08/2012 CHEM 14 2071279 ALBUMIN 4.2 GM/DL 03/08/2012 CHEM 14 20280112 CHLORIDE 100 MMOL/L 03/08/2012 CHEM 14 20280112 BILI TOT 0.5 MG/DL 03/08/2012 CHEM 14 0833479 ALK PHOS 59 U/L 03/08/2012 CHEM 14 3401760 SODIUM 136 MMOL/L 03/08/2012 CHEM 14 20280112 CREATININE 0.65 MG/DL 03/08/2012 CHEM 14 2194567 CALCIUM 9.4 MG/DL 03/08/2012 CHEM 14 6967796 POTASSIUM 3.9 MMOL/L 03/08/2012 CHEM 14 9571489 PROT TOT 6.7 GM/DL 03/08/2012 CHEM 14 3144625 GLUCOSE 90 MG/DL 03/08/2012 CHEM 14 1903993 BICARB 30 MMOL/L 03/08/2012 CHEM 14 3183565 ANION GAP 6 MEQ/L 03/08/2012 CHEM 14 2924894 AST 16 U/L 11/23/2011 CHEM 14 3642363 ALT 14 IU/L 11/23/2011 CHEM 14 7910820 BUN 11 MG/DL 11/23/2011 CHEM 14 6719221 ALBUMIN 4.1 GM/DL 11/23/2011 CHEM 14 7113103 CHLORIDE 100 MMOL/L 11/23/2011 CHEM 14 9742643 BILI TOT 0.5 MG/DL 11/23/2011 CHEM 14 1478598 ALK PHOS 50 U/L 11/23/2011 CHEM 14 2978335 SODIUM 135 MMOL/L 11/23/2011 CHEM 14 1881277 CREATININE 0.57 MG/DL 11/23/2011 CHEM 14 3737850 CALCIUM 9.1 MG/DL 11/23/2011 CHEM 14 9103243 POTASSIUM 4.5 MMOL/L 11/23/2011 CHEM 14 8830603 PROT TOT 6.5 GM/DL 11/23/2011 CHEM 14 9490837 GLUCOSE 89 MG/DL 11/23/2011 CHEM 14 5860301 BICARB 28 MMOL/L 11/23/2011 CHEM 14 8479717 ANION GAP 7 MEQ/L 11/23/2011 GFR CALC 8626695 GFR AA >60 ML/MIN 11/23/2011 GFR CALC 9378959 GFR NON-AA >60 ML/MIN 11/23/2011 CBC 0801753 WBC 5.1 10e9/L 11/23/2011 CBC 3904364 RBC 4.06 10e12/L 11/23/2011 CBC 0996087 HGB 12.5 g/dL 11/23/2011 CBC 3366900 HCT DET 37.3 % 11/23/2011 CBC 9485631 MCV 91.9 fL 11/23/2011 CBC 5337511 MCH 30.8 pg 11/23/2011 CBC 7586845 MCHC 33.5 g/dL 11/23/2011 CBC 2093795 PLT 222 10e9/L 11/23/2011 CBC 0699190 MPV 10.8 fL 11/23/2011 CBC 4377486 YANIRA % 64.2 % 11/23/2011 CBC 9078925 LY % 22.3 % 11/23/2011 CBC 3860262 MON % 11.3 % 11/23/2011 CBC 9036944 EOS % 1.8 % 11/23/2011 CBC 2965708 BASO % 0.4 % 11/23/2011 CBC 0393480 RDW 13.6 % 11/23/2011 CBC 4846109 ABS YANIRA 3.27 10e9/L 11/23/2011 CBC 0153791 ABS LYMPH 1.14 10e9/L 11/23/2011 CBC 1030478 ABS MONO 0.58 10e9/L 11/23/2011 CBC 9948435 ABS EOS 0.09 10e9/L 11/23/2011 CBC 2247614 ABS BASO 0.02 10e9/L 11/23/2011 CBC 6456271 RDW-SD 44.5 fL 11/23/2011 UA 94557 Specific [place] 1.005 03/04/2011 UA 13829 PH 6 03/04/2011 UA 45024 GLUCOSE N 03/04/2011 UA 71817 Protein N 03/04/2011 UA 33863 Blood ++ 03/04/2011 UA 00208 Bilirubin N 03/04/2011 UA 87514 Ketones N 03/04/2011 UA 58092 Urobilinogen N 03/04/2011 UA 83833 Nitrite N 03/04/2011 UA 42457 Leukocytes N 03/04/2011 URINALYSIS NONAUTO W/O SCOPE 27731 Specific [place] 1.010 DateTime(Free Text in Aprima) URINALYSIS NONAUTO W/O SCOPE 24610 PH 6.5 DateTime(Free Text in Aprima) URINALYSIS NONAUTO W/O SCOPE 28118 GLUCOSE neg DateTime(Free Text in Aprima) URINALYSIS NONAUTO W/O SCOPE 85941 Protein neg DateTime(Free Text in Aprima) URINALYSIS NONAUTO W/O SCOPE 80438 Blood 3+ DateTime(Free Text in Aprima) URINALYSIS NONAUTO W/O SCOPE 38348 Bilirubin neg DateTime(Free Text in Aprima) URINALYSIS NONAUTO W/O SCOPE 37498 Ketones neg DateTime(Free Text in Aprima) URINALYSIS NONAUTO W/O SCOPE 35921 Urobilinogen neg DateTime(Free Text in Aprima) URINALYSIS NONAUTO W/O SCOPE 79017 Nitrite neg DateTime(Free Text in Aprima) URINALYSIS NONAUTO W/O SCOPE 25706 Leukocytes neg DateTime(Free Text in Aprima) URINALYSIS NONAUTO W/O SCOPE 34816 Specific [place] 1.010 DateTime(Free Text in Aprima) URINALYSIS NONAUTO W/O SCOPE 18520 PH 5 DateTime(Free Text in Aprima) URINALYSIS NONAUTO W/O SCOPE 60669 GLUCOSE neg DateTime(Free Text in Aprima) URINALYSIS NONAUTO W/O SCOPE 22725 Protein neg DateTime(Free Text in Aprima) URINALYSIS NONAUTO W/O SCOPE 59207 Blood 3+ DateTime(Free Text in Aprima) URINALYSIS NONAUTO W/O SCOPE 96028 Bilirubin neg DateTime(Free Text in Aprima) URINALYSIS NONAUTO W/O SCOPE 51300 Ketones neg DateTime(Free Text in Aprima) URINALYSIS NONAUTO W/O SCOPE 29168 Urobilinogen neg DateTime(Free Text in Aprima) URINALYSIS NONAUTO W/O SCOPE 90587 Nitrite neg DateTime(Free Text in Aprima) URINALYSIS NONAUTO W/O SCOPE 66932 Leukocytes neg DateTime(Free Text in Aprima) URINALYSIS NONAUTO W/O SCOPE 51520 Specific [place] 1.005 DateTime(Free Text in Aprima) URINALYSIS NONAUTO W/O SCOPE 44001 PH 8.5 DateTime(Free Text in Aprima) URINALYSIS NONAUTO W/O SCOPE 60701 GLUCOSE neg DateTime(Free Text in Aprima) URINALYSIS NONAUTO W/O SCOPE 29024 Protein neg DateTime(Free Text in Aprima) URINALYSIS NONAUTO W/O SCOPE 26161 Blood 1+ DateTime(Free Text in Aprima) URINALYSIS NONAUTO W/O SCOPE 87745 Bilirubin neg DateTime(Free Text in Aprima) URINALYSIS NONAUTO W/O SCOPE 41987 Ketones neg DateTime(Free Text in Aprima) URINALYSIS NONAUTO W/O SCOPE 25053 Urobilinogen neg DateTime(Free Text in Aprima) URINALYSIS NONAUTO W/O SCOPE 58006 Nitrite neg DateTime(Free Text in Aprima) URINALYSIS NONAUTO W/O SCOPE 66865 Leukocytes neg DateTime(Free Text in Aprima) URINALYSIS NONAUTO W/O SCOPE 87089 Specific [place] 1.005 DateTime(Free Text in Aprima) URINALYSIS NONAUTO W/O SCOPE 89847 PH 7 DateTime(Free Text in Aprima) URINALYSIS NONAUTO W/O SCOPE 91594 GLUCOSE neg DateTime(Free Text in Aprima) URINALYSIS NONAUTO W/O SCOPE 17042 Protein neg DateTime(Free Text in Aprima) URINALYSIS NONAUTO W/O SCOPE 06302 Blood large DateTime(Free Text in Aprima) URINALYSIS NONAUTO W/O SCOPE 04032 Bilirubin neg DateTime(Free Text in Aprima) URINALYSIS NONAUTO W/O SCOPE 82705 Ketones neg DateTime(Free Text in Aprima) URINALYSIS NONAUTO W/O SCOPE 84745 Urobilinogen 0.2 DateTime(Free Text in Aprima) URINALYSIS NONAUTO W/O SCOPE 64998 Nitrite neg DateTime(Free Text in Aprima) URINALYSIS NONAUTO W/O SCOPE 66230 Leukocytes neg DateTime(Free Text in Aprima) URINALYSIS NONAUTO W/O SCOPE 60235 Specific [place] 1.005 DateTime(Free Text in Aprima) URINALYSIS NONAUTO W/O SCOPE 54239 PH 7.5 DateTime(Free Text in Aprima) URINALYSIS NONAUTO W/O SCOPE 90149 GLUCOSE DateTime(Free Text in Aprima) URINALYSIS NONAUTO W/O SCOPE 30935 Protein trace DateTime(Free Text in Aprima) URINALYSIS NONAUTO W/O SCOPE 34176 Blood 4+ DateTime(Free Text in Aprima) URINALYSIS NONAUTO W/O SCOPE 12071 Bilirubin DateTime(Free Text in Aprima) URINALYSIS NONAUTO W/O SCOPE 54611 Ketones DateTime(Free Text in Aprima) URINALYSIS NONAUTO W/O SCOPE 47989 Urobilinogen DateTime(Free Text in Apr[employer]) URINALYSIS NONAUTO W/O SCOPE 79011 Nitrite DateTime(Free Text in Apr[employer]) URINALYSIS NONAUTO W/O SCOPE 04235 Leukocytes trace DateTime(Free Text in Aprima) Review [...] FLU VACC PRSV FREE INC ANTIG CPT-4: 41131 03/27/2017 PPPS, SUBSEQ VISIT CPT- 4: G0439 01/23/2017 URINALYSIS NONAUTO W/O SCOPE CPT-4: 01877 05/17/2016 ADMIN INFLUENZA VIRUS VAC CPT-4: G0008 03/24/2016 FLU VACC PRSV FREE INC ANTIG CPT-4: 20783 03/24/2016 ADMIN PNEUMOCOCCAL VACCINE SNOMED CT: 72112213 CPT-4: G0009 05/13/2015 PNEUMOCOCCAL VACC [address]: 41534947 CPT-4: 77800 05/13/2015 Pneumococcal Polysaccharide Vaccine, 23-Valent, Ad Assigned to/Mela Bledsoe CPT-4: 98968Rcbkykx 07/11/2014 ADMIN PNEUMOCOCCAL VACCINE SNOMED CT: 62224400 CPT-4: G0009 07/11/2014 URINALYSIS NONAUTO W/O SCOPE CPT-4: 67801 05/14/2014 URINALYSIS NONAUTO W/O SCOPE CPT-4: 28758 05/06/2014 URINALYSIS NONAUTO W/O SCOPE CPT-4: 18481 04/29/2014 ADMIN INFLUENZA VIRUS VAC CPT-4: G0008 03/20/2014 FLU VAC NO PRSV 4 SCOTT 3 YRS+ Assigned to/Mela Bledsoe CPT-4: 64406Nhlvqvs 03/20/2014 URINALYSIS NONAUTO W/O SCOPE CPT-4: 99227 07/29/2013 URINALYSIS NONAUTO W/O SCOPE CPT-4: 35142 07/01/2013 URINALYSIS NONAUTO W/O SCOPE CPT-4: 03123 06/20/2013 ROUTINE VENIPUNCTURE CPT- 4: 60831 05/15/2013 ROUTINE VENIPUNCTURE CPT- 4: 79657 04/23/2013 ADMIN INFLUENZA VIRUS VAC CPT-4: G0008 04/23/2013 FLULAVAL VACC, 3 YRS & >, IM CPT-4: Q2036 04/23/2013 ROUTINE VENIPUNCTURE CPT- 4: 24602 12/17/2012 ROUTINE VENIPUNCTURE CPT- 4: 58499 12/14/2012 ROUTINE VENIPUNCTURE CPT- 4: 83115 12/11/2012 PRESCRIP TRANSMIT VIA ERX SY CPT-4: G8553 12/11/2012 PRESCRIP TRANSMIT VIA ERX SY CPT-4: G8553 10/30/2012 URINALYSIS NONAUTO W/O SCOPE CPT-4: 95988 09/13/2012 ADMIN INFLUENZA VIRUS VAC CPT-4: G0008 04/18/2012 FLULAVAL VACC, 3 YRS & >, IM CPT-4: Q2036 04/18/2012 URINALYSIS NONAUTO W/O SCOPE CPT-4: 36795 03/13/2012 ROUTINE VENIPUNCTURE CPT- 4: 06015 03/08/2012 URINALYSIS NONAUTO W/O SCOPE CPT-4: 87835 02/13/2012 PRESCRIP TRANSMIT VIA ERX SY CPT-4: G8553 02/13/2012 ROCEPHIN, PER 250 MG CPT- 4: J0696 11/23/2011 ROUTINE VENIPUNCTURE CPT- 4: 82135 11/23/2011 URINALYSIS NONAUTO W/O SCOPE CPT-4: 31197 11/23/2011 PRESCRIP TRANSMIT VIA ERX SY CPT-4: G8553 11/23/2011 REMOVE IMPACTED EAR WAX UNI CPT-4: 53318 10/17/2011 PRESCRIP TRANSMIT VIA ERX SY CPT-4: G8553 10/03/2011 PRESCRIP TRANSMIT VIA ERX SY CPT-4: G8553 08/08/2011 URINALYSIS NONAUTO W/O SCOPE CPT-4: 04198 03/15/2011 URINALYSIS NONAUTO W/O SCOPE CPT-4: 16678 03/04/2011 THER/PROPH/DIAG INJ SC/IM CPT-4: 18589 03/04/2011 ROCEPHIN, PER 250 MG CPT- 4: J0696 03/04/2011 Vital Signs Date Vital 12/06/2018 Blood Pressure 1: 118/66 Code: 8480-6 BMI: 20.1 Code: 18404-8 Heart Rate 1: 134 bpm Height: 5' SpO2: 98% Weight: 103 lbs 11/30/2018 Blood Pressure 1: 122/64 Code: 8480-6 Height: Weight: 10/31/2018 Blood Pressure 1: 122/66 Code: 8480-6 BMI: 20.5 Code: 88919-0 Heart Rate 1: 83 bpm Height: 5' SpO2: 99% Weight: 105 lbs 10/09/2018 Blood Pressure 1: 126/60 Code: 8480-6 BMI: 19.9 Code: 99948-4 Heart Rate 1: 66 bpm Height: 5' SpO2: 96% Weight: 102 lbs 09/12/2018 Blood Pressure 1: 156/72 Code: 8480-6 BMI: 19.9 Code: 57101-3 Heart Rate 1: 68 bpm Height: 5' Temperature: 36.6 (C) / 97.8 (F) Weight: 102 lbs 08/14/2018 Blood Pressure 1: 136/68 Code: 8480-6 BMI: 21.1 Code: 60334-1 Heart Rate 1: 92 bpm Height: 5' Weight: 108 lbs 07/26/2018 Blood Pressure 1: 128/76 Code: 8480-6 BMI: 21.1 Code: 38512-4 Heart Rate 1: 88 bpm Height: 5' Weight: 108 lbs 06/04/2018 Blood Pressure 1: 124/72 Code: 8480-6 BMI: 21.3 Code: 36427-4 Heart Rate 1: 98 bpm Height: 5' Weight: 109 lbs 01/31/2018 Blood Pressure 1: 116/68 Code: 8480-6 BMI: 21.1 Code: 79091-3 Heart Rate 1: 89 bpm Height: 5' SpO2: 98% Weight: 108 lbs 01/17/2018 Blood Pressure 1: 134/74 Code: 8480-6 BMI: 21.3 Code: 15628-7 Heart Rate 1: 74 bpm Height: 5' SpO2: 96% Waist Measure (cm): 71 cm Weight: 109 lbs 12/14/2017 Blood Pressure 1: 150/78 Code: 8480-6 BMI: 21.5 Code: 90701-0 Heart Rate 1: 77 bpm Height: 5' SpO2: 98% Temperature: 36.7 (C) / 98.1 (F) Weight: 110 lbs 12/07/2017 Blood Pressure 1: 134/70 Code: 8480-6 Heart Rate 1: 76 bpm Height: SpO2: 98% Temperature: 36.8 (C) / 98.2 (F) Weight: 11/14/2017 Blood Pressure 1: 152/84 Code: 8480-6 BMI: 21.9 Code: 54806-5 Heart Rate 1: 95 bpm Height: 5' SpO2: 93% Weight: 112 lbs 03/27/2017 Blood Pressure 1: 122/70 Code: 8480-6 BMI: 21.3 Code: 87315-2 Heart Rate 1: 75 bpm Height: 5' Weight: 109 lbs 01/23/2017 BMI: 21.5 Code: 07420-6 Height: 5' Weight: 110 lbs 01/19/2017 Blood Pressure 1: 112/60 Code: 8480-6 BMI: 21.5 Code: 80052-6 Heart Rate 1: 54 bpm Height: 5' SpO2: 97% Weight: 110 lbs 11/29/2016 Blood Pressure 1: 126/68 Code: 8480-6 Height: 5' Weight: 11/23/2016 Blood Pressure 1: 130/72 Code: 8480-6 BMI: 21.9 Code: 26458-6 Heart Rate 1: 48 bpm Height: 5' SpO2: 97% Temperature: 36.7 (C) / 98.0 (F) Weight: 112 lbs 11/21/2016 Blood Pressure 1: 134/76 Code: 8480-6 BMI: 21.9 Code: 19952-6 Heart Rate 1: 41 bpm Height: 5' SpO2: 94% Temperature: 36.9 (C) / 98.4 (F) Weight: 112 lbs 11/08/2016 Blood Pressure 1: 126/74 Code: 8480-6 Heart Rate 1: 82 bpm Height: 5' SpO2: 94% Weight: 11/02/2016 Blood Pressure 1: 112/66 Code: 8480-6 Heart Rate 1: 72 bpm Height: 5' SpO2: 95% Weight: 10/27/2016 Blood Pressure 1: 130/64 Code: 8480-6 BMI: 21.7 Code: 27102-7 Heart Rate 1: 81 bpm Height: 5' SpO2: 96% Weight: 111 lbs 08/31/2016 Blood Pressure 1: 132/72 Code: 8480-6 BMI: 22.5 Code: 23072-2 Heart Rate 1: 66 bpm Height: 5' Weight: 115 lbs 07/27/2016 Blood Pressure 1: 166/74 Code: 8480-6 BMI: 23.2 Code: 17349-4 Heart Rate 1: 48 bpm Height: 5' SpO2: 90% Temperature: 36.8 (C) / 98.2 (F) Weight: 119 lbs 06/23/2016 Blood Pressure 1: 128/70 Code: 8480-6 BMI: 22.3 Code: 39348-7 Heart Rate 1: 75 bpm Height: 5' SpO2: 97% Weight: 114 lbs 06/09/2016 BMI: 22.7 Code: 52858-1 Heart Rate 1: 73 bpm Height: 5' SpO2: 97% Weight: 116 lbs 05/25/2016 Blood Pressure 1: 138/62 Code: 8480-6 BMI: 22.8 Code: 82875-6 Heart Rate 1: 76 bpm Height: 5' Weight: 117 lbs 05/17/2016 Blood Pressure 1: 116/70 Code: 8480-6 BMI: 22.8 Code: 37676-6 Heart Rate 1: 74 bpm Height: 5' SpO2: 94% Weight: 117 lbs 03/24/2016 Blood Pressure 1: 154/78 Code: 8480-6 BMI: 22.5 Code: 15048-0 Heart Rate 1: 78 bpm Height: 5' SpO2: 97% Weight: 115 lbs 02/02/2016 Blood Pressure 1: 132/70 Code: 8480-6 BMI: 22.3 Code: 20577-5 Heart Rate 1: 74 bpm Height: 5' SpO2: 94% Weight: 114 lbs 2016 Blood Pressure 1: 120/62 Code: 8480-6 BMI: 22.0 Code: 68805-9 Heart Rate 1: 68 bpm Height: 5' Weight: 112 lbs 8 oz 12/21/2015 Blood Pressure 1: 122/82 Code: 8480-6 BMI: 21.9 Code: 40674-7 Heart Rate 1: 83 bpm Height: 5' SpO2: 93% Temperature: 37.1 (C) / 98.7 (F) Weight: 112 lbs 11/03/2015 Blood Pressure 1: 122/72 Code: 8480-6 BMI: 22.4 Code: 94811-2 Heart Rate 1: 62 bpm Height: 5' Weight: 114 lbs 8 oz 10/19/2015 Blood Pressure 1: 138/62 Code: 8480-6 BMI: 21.1 Code: 29643-0 Heart Rate 1: 79 bpm Height: 5' Weight: 108 lbs 10/13/2015 Blood Pressure 1: 120/62 Code: 8480-6 BMI: 21.0 Code: 29370-8 Heart Rate 1: 76 bpm Height: 5' SpO2: 98% Weight: 108 lbs 09/29/2015 Blood Pressure 1: 130/70 Code: 8480-6 BMI: 20.2 Code: 41062-9 Heart Rate 1: 72 bpm Height: 5' Weight: 104 lbs 09/15/2015 Blood Pressure 1: 128/78 Code: 8480-6 BMI: 19.9 Code: 44882-1 Heart Rate 1: 72 bpm Height: 5' Weight: 102 lbs 8 oz 09/01/2015 Blood Pressure 1: 128/68 Code: 8480-6 BMI: 19.8 Code: 16701-2 Height: 5' Weight: 102 lbs 05/26/2015 Blood Pressure 1: 140/68 Code: 8480-6 BMI: 19.0 Code: 46287-2 Heart Rate 1: 70 bpm Height: 5' Weight: 98 lbs 05/21/2015 Blood Pressure 1: 140/78 Code: 8480-6 BMI: 19.2 Code: 62246-1 Heart Rate 1: 85 bpm Height: 5' SpO2: 95% Weight: 99 lbs 05/07/2015 Blood Pressure 1: 140/82 Code: 8480-6 BMI: 19.0 Code: 47578-9 Heart Rate 1: 76 bpm Height: 5' Weight: 98 lbs 03/23/2015 Blood Pressure 1: 142/60 Code: 8480-6 BMI: 18.6 Code: 45761-6 Heart Rate 1: 52 bpm Height: 5' Weight: 96 lbs 03/09/2015 Blood Pressure 1: 138/74 Code: 8480-6 BMI: 18.8 Code: 72349-7 Heart Rate 1: 60 bpm Height: 5' Weight: 97 lbs 10/30/2014 Blood Pressure 1: 112/82 Code: 8480-6 BMI: 19.0 Code: 16238-8 Heart Rate 1: 64 bpm Height: 5' Weight: 98 lbs 07/11/2014 Blood Pressure 1: 146/70 Code: 8480-6 BMI: 18.8 Code: 40548-6 Heart Rate 1: 68 bpm Height: 5' Weight: 97 lbs 05/20/2014 Blood Pressure 1: 142/76 Code: 8480-6 BMI: 18.6 Code: 29387-9 Heart Rate 1: 78 bpm Height: 5' Weight: 96 lbs 04/29/2014 Blood Pressure 1: 138/62 Code: 8480-6 BMI: 18.3 Code: 00804-9 Heart Rate 1: 80 bpm Height: 5' Weight: 94 lbs 8 oz 03/20/2014 Blood Pressure 1: 142/68 Code: 8480-6 BMI: 18.6 Code: 27518-5 Heart Rate 1: 96 bpm Height: 5' Weight: 96 lbs 03/05/2014 Blood Pressure 1: 122/72 Code: 8480-6 BMI: 18.8 Code: 28380-5 Heart Rate 1: 82 bpm Height: 5' SpO2: 97% Weight: 97 lbs 01/29/2014 Blood Pressure 1: 124/78 Code: 8480-6 BMI: 18.8 Code: 61566-7 Heart Rate 1: 60 bpm Height: 5' Weight: 97 lbs 01/14/2014 Blood Pressure 1: 120/58 Code: 8480-6 BMI: 19.2 Code: 11301-1 Heart Rate 1: 56 bpm Height: 5' Temperature: 36.9 (C) / 98.4 (F) Weight: 99 lbs 12/25/2013 Blood Pressure 1: 118/78 Code: 8480-6 BMI: 19.2 Code: 12043-8 Heart Rate 1: 68 bpm Height: 5' Weight: 99 lbs 11/27/2013 Blood Pressure 1: 102/68 Code: 8480-6 BMI: 19.4 Code: 08319-7 Heart Rate 1: 56 bpm Height: 5' Weight: 100 lbs 09/12/2013 Blood Pressure 1: 142/62 Code: 8480-6 BMI: 19.7 Code: 14895-2 Heart Rate 1: 72 bpm Height: 5'1" Weight: 104 lbs 08/15/2013 Blood Pressure 1: 152/92 Code: 8480-6 Heart Rate 1: 96 bpm Weight: 102 lbs 08/01/2013 Blood Pressure 1: 122/68 Code: 8480-6 BMI: 19.1 Code: 84027-8 Heart Rate 1: 68 bpm Height: 5'1" Weight: 101 lbs 07/01/2013 Blood Pressure 1: 130/72 Code: 8480-6 BMI: 19.5 Code: 06041-3 Heart Rate 1: 80 bpm Height: 5'1" Temperature: 36.1 (C) / 97.0 (F) Weight: 103 lbs 05/29/2013 Blood Pressure 1: 126/72 Code: 8480-6 BMI: 19.3 Code: 65774-5 Heart Rate 1: 80 bpm Height: 5'1" Weight: 102 lbs 05/15/2013 Blood Pressure 1: 156/74 Code: 8480-6 BMI: 19.3 Code: 82582-4 Heart Rate 1: 88 bpm Height: 5'1" Weight: 102 lbs 04/23/2013 Blood Pressure 1: 140/82 Code: 8480-6 BMI: 19.3 Code: 01568-8 Heart Rate 1: 72 bpm Height: 5'1" Weight: 102 lbs 03/21/2013 Blood Pressure 1: 142/74 Code: 8480-6 Heart Rate 1: 92 bpm Weight: 103 lbs 01/16/2013 Blood Pressure 1: 120/56 Code: 8480-6 BMI: 20.0 Code: 92253-7 Heart Rate 1: 72 bpm Height: 5'1" Weight: 106 lbs 12/19/2012 Blood Pressure 1: 118/66 Code: 8480-6 Heart Rate 1: 84 bpm Weight: 12/10/2012 Blood Pressure 1: 132/62 Code: 8480-6 Heart Rate 1: 64 bpm Weight: 103 lbs 10/30/2012 Blood Pressure 1: 122/66 Code: 8480-6 BMI: 19.9 Code: 85282-8 Heart Rate 1: 61 bpm Height: 5'1" [...] 1: 118/72 Code: 8480-6 BMI: 21.0 Code: 36151-8 Heart Rate 1: 66 bpm Height: 5'1" Respiratory Rate: 16 bpm Weight: 111 lbs 2012 Blood Pressure 1: 122/62 Code: 8480-6 Heart Rate 1: 68 bpm Weight: 110 lbs 12/01/2011 Blood Pressure 1: 150/60 Code: 8480-6 BMI: 20.8 Code: 30393-6 Heart Rate 1: 60 bpm Height: 5'1" Respiratory Rate: 16 bpm Weight: 110 lbs 11/23/2011 Blood Pressure 1: 170/68 Code: 8480-6 BMI: 21.1 Code: 08022-3 Heart Rate 1: 64 bpm Height: 5'1" Temperature: 36.3 (C) / 97.3 (F) Weight: 111 lbs 8 oz 10/17/2011 Blood Pressure 1: 148/62 Code: 8480-6 Heart Rate 1: 74 bpm 10/03/2011 Blood Pressure 1: 102/48 Code: 8480-6 BMI: 21.4 Code: 48592-6 Heart Rate 1: 76 bpm Height: 5'1" Respiratory Rate: 16 bpm Weight: 113 lbs 08/08/2011 Blood Pressure 1: 128/60 Code: 8480-6 Heart Rate 1: 80 bpm Respiratory Rate: 16 bpm Weight: 113 lbs 05/09/2011 Blood Pressure 1: 130/62 Code: 8480-6 BMI: 20.7 Code: 11485-9 Heart Rate 1: 64 bpm Height: 5'1" Respiratory Rate: 16 bpm Weight: 109 lbs 8 oz 03/29/2011 Blood Pressure 1: 120/62 Code: 8480-6 BMI: 20.2 Code: 57440-9 Heart Rate 1: 66 bpm Height: 5'1" Respiratory Rate: 12 bpm Weight: 107 lbs 03/15/2011 Blood Pressure 1: 120/64 Code: 8480-6 BMI: 19.8 Code: 87866-2 Heart Rate 1: 76 bpm Height: 5'1" [...] contacts 03/20/2014 sat next to neighbor in [place] who had tonsillitis sore throat Pertinent Findings [...] data Encounters Encounter Performer Location Codes Date ([id number]) 65973 EST. PATIENT, LEVEL III Diagnosis: Chronic atrial fibrillation[ICD10: I48.2] Diagnosis: Cough[ICD10: R05] Laura Bahena MD, [facility] CPT-4: 73685 12/06/2018 ([id number]) 12885 EST. PATIENT, LEVEL III Diagnosis: Acute laryngopharyngitis[ICD10: J06.0] Laura Bahena MD, [facility] CPT-4: 53048 11/30/2018 ([id number]) 72111 EST. 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 PATIENT, LEVEL III Diagnosis: Raynaud's syndrome without gangrene[ICD10: I73.00] Diagnosis: Pain in left hand[ICD10: M79.642] Diagnosis: Pain in right hand[ICD10: M79.641] Karma Bahena MD, [facility] CPT- 4: 40279 10/09/2018 92317 EST. PATIENT, LEVEL III Diagnosis: Cough[ICD10: R05] Diagnosis: Acute laryngopharyngitis[ICD10: J06.0] Diagnosis: Other allergic rhinitis[ICD10: J30.89] Diagnosis: Raynaud's syndrome without gangrene[ICD10: I73.00] Katharine Bahena MD [facility] CPT-4: 47495 09/12/2018 ([id number]) 21064 EST. PATIENT, LEVEL IV Diagnosis: Raynaud's syndrome without gangrene[ICD10: I73.00] Diagnosis: Pain in right toe(s)[ICD10: M79.674] Diagnosis: Chronic atrial fibrillation[ICD10: I48.2] Karma Bahena MD [facility] CPT-4: 77555 08/14/2018 ([id number]) 09669 EST. PATIENT, LEVEL IV Diagnosis: Chronic atrial fibrillation[ICD10: I48.2] Diagnosis: Sebaceous cyst[ICD10: L72.3] Diagnosis: Raynaud's syndrome without gangrene[ICD10: I73.00] Karma Bahena MD [facility] CPT-4: 45988 07/26/2018 ([id number]) 41688 EST. PATIENT, LEVEL IV Diagnosis: Essential (primary) hypertension[ICD10: I10] Diagnosis: Atrophy of thyroid (acquired)[ICD10: E03.4] Diagnosis: Gastro-esophageal reflux disease without esophagitis[ICD10: K21.9] Karma Bahena MD [facility] CPT-4: 25012 06/04/2018 ([id number]) 11416 EST. PATIENT, LEVEL IV Diagnosis: Essential (primary) hypertension[ICD10: I10] Diagnosis: Atrophy of thyroid (acquired)[ICD10: E03.4] Diagnosis: 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[ICD10: Z79.899] Karma Bahena MD [facility] CPT-4: 20673 01/31/2018 ([id number]) 67595 EST. PATIENT, LEVEL IV Diagnosis: Essential (primary) hypertension[ICD10: I10] Diagnosis: Chronic atrial fibrillation[ICD10: I48.2] Diagnosis: Allergic rhinitis due to pollen[ICD10: J30.1] Diagnosis: Cough[ICD10: R05] Karma Bahena MD [facility] CPT-4: 72993 12/14/2017 93352 EST. PATIENT, LEVEL IV Diagnosis: Other allergic rhinitis[ICD10: J30.89] Katharine Bahena MD [facility] CPT- 4: 07705 12/07/2017 ([id number]) 30417 EST. PATIENT, LEVEL IV Diagnosis: Essential (primary) hypertension[ICD10: I10] Diagnosis: Chronic atrial fibrillation[ICD10: I48.2] Diagnosis: Atrophy of thyroid (acquired)[ICD10: E03.4] Karma Bahena MD [facility] CPT-4: 69421 11/14/2017 ([id number]) 15418 EST. PATIENT, LEVEL IV Diagnosis: Essential (primary) hypertension[ICD10: I10] Diagnosis: Localized edema[ICD10: R60.0] Diagnosis: Encounter for immunization[ICD10: Z23] Diagnosis: Age-related osteoporosis without current pathological fracture[ICD10: M81.0] Karma Bahena MD, [facility] CPT-4: 00431 03/27/2017 ([id number]) 17207 EST. PATIENT, LEVEL IV Diagnosis: Essential (primary) hypertension[ICD10: I10] Diagnosis: Chronic atrial fibrillation[ICD10: I48.2] Diagnosis: Dysphonia[ICD10: R49.0] Karma Bahena MD, [facility] CPT-4: 30710 01/19/2017 ([id number]) Miscellaneous no charge Diagnosis: Cough[ICD10: R05] Diagnosis: Acute upper respiratory infection, unspecified[ICD10: J06.9] Laura Bahena MD, [facility] CPT-4: 16207 11/29/2016 71427 EST. PATIENT, LEVEL III Diagnosis: Cough[ICD10: R05] Diagnosis: Acute laryngopharyngitis[ICD10: J06.0] Katharine Bahena MD, [facility] CPT- 4: 73906 11/23/2016 ([id number]) 38481 EST. PATIENT, LEVEL III Diagnosis: Acute laryngopharyngitis[ICD10: J06.0] Laura Bahena MD, [facility] CPT-4: 98999 11/21/2016 ([id number]) Miscellaneous no charge Diagnosis: Laceration without foreign body of right forearm, subsequent encounter[ICD10: S51.811D] Karma Bahena MD [facility] CPT-4: 05268 11/17/2016 ([id number]) Miscellaneous no charge Diagnosis: Laceration without foreign body of right forearm, subsequent encounter[ICD10: S51.811D] Karma Bahena MD [facility] CPT-4: 67416 11/14/2016 ([id number]) Miscellaneous no charge Diagnosis: Laceration without foreign body of right forearm, subsequent encounter[ICD10: S51.811D] Karma Bahena MD [facility] CPT-4: 42918 11/11/2016 ([id number]) Miscellaneous no charge Diagnosis: Laceration without foreign body of right forearm, subsequent encounter[ICD10: S51.811D] Karma Bahena MD [facility] CPT-4: 32085 11/10/2016 ([id number]) 49461 EST. PATIENT, LEVEL II Diagnosis: Laceration without foreign body of right forearm, subsequent encounter[ICD10: S51.811D] Karma Bahena MD [facility] CPT-4: 12410 11/08/2016 ([id number]) 07981 EST. PATIENT, LEVEL IV Diagnosis: Atrophy of thyroid (acquired)[ICD10: E03.4] Diagnosis: Chronic atrial fibrillation[ICD10: I48.2] Diagnosis: Laceration without foreign body of right forearm, subsequent encounter[ICD10: S51.811D] Karma Bahena MD, [facility] CPT-4: 61100 11/02/2016 ([id number]) 00548 EST. PATIENT, LEVEL III Diagnosis: Laceration without foreign body of right forearm, initial encounter[ICD10: S51.811A] Laura Bahena MD, [facility] CPT-4: 74356 10/27/2016 ([id number]) 00114 EST. PATIENT, LEVEL IV Diagnosis: Essential (primary) hypertension[ICD10: I10] Diagnosis: Chronic atrial fibrillation[ICD10: I48.2] Karma Bahena MD, [facility] CPT-4: 97949 08/31/2016 ([id number]) 50238 EST. PATIENT, LEVEL IV Diagnosis: Localized edema[ICD10: R60.0] Diagnosis: Essential (primary) hypertension[ICD10: I10] Diagnosis: Abdominal distension (gaseous)[ICD10: R14.0] Karma Bahena MD, [facility] CPT-4: 53043 07/27/2016 ([id number]) 59116 EST. PATIENT, LEVEL IV Diagnosis: Essential (primary) hypertension[ICD10: I10] Diagnosis: Chronic atrial fibrillation[ICD10: I48.2] Diagnosis: Localized edema[ICD10: R60.0] Karma Bahena MD [facility] CPT-4: 61637 06/23/2016 ([id number]) 61528 EST. PATIENT, LEVEL III Diagnosis: Localized edema[ICD10: R60.0] Karma Bahena MD [facility] CPT-4: 20450 06/09/2016 ([id number]) 40529 EST. PATIENT, LEVEL III Diagnosis: Irritable bowel syndrome without diarrhea[ICD10: K58.9] Diagnosis: Pruritus ani[ICD10: L29.0] Karma Bahena MD [facility] CPT-4: 41217 05/25/2016 ([id number]) 74009 EST. PATIENT, LEVEL III Diagnosis: Abdominal distension (gaseous)[ICD10: R14.0] Diagnosis: Encounter for screening mammogram for malignant neoplasm of breast[ICD10: Z12.31] Karma Bahena MD [facility] CPT-4: 78896 05/17/2016 ([id number]) 04887 EST. PATIENT, LEVEL IV Diagnosis: Essential (primary) hypertension[ICD10: I10] Diagnosis: First degree hemorrhoids[ICD10: K64.0] Diagnosis: Encounter for immunization[ICD10: Z23] Karma Bahena MD [facility] CPT-4: 75771 03/24/2016 ([id number]) 79830 EST. PATIENT, LEVEL III Diagnosis: Epidermal cyst[ICD10: L72.0] Diagnosis: Essential (primary) hypertension[ICD10: I10] Diagnosis: Chronic atrial fibrillation[ICD10: I48.2] Diagnosis: 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[ICD10: Z79.899] Karma Bahena MD [facility] CPT-4: 00931 02/02/2016 ([id number]) 66497 EST. PATIENT, LEVEL III Diagnosis: Acute anal fissure[ICD10: K60.0] Karma Bahena MD [facility] CPT-4: 47739 2016 ([id number]) 17007 EST. PATIENT, LEVEL III Diagnosis: Allergic rhinitis due to pollen[ICD10: J30.1] Diagnosis: Acute upper respiratory infection, unspecified[ICD10: J06.9] Laura Bahena MD, [facility] CPT-4: 45673 12/21/2015 ([id number]) 83131 EST. PATIENT, LEVEL III Diagnosis: Essential (primary) hypertension[ICD10: I10] Diagnosis: Chronic atrial fibrillation[ICD10: I48.2] Karma Bahena MD, [facility] CPT-4: 18508 11/03/2015 ([id number]) Miscellaneous no charge Diagnosis: Impacted cerumen, right ear[ICD10: H61.21] Katharine Bahena MD, [facility] CPT-4: 36706 10/19/2015 60318 EST. PATIENT, LEVEL IV Diagnosis: Impacted cerumen, right ear[ICD10: H61.21] Diagnosis: Other allergic rhinitis[ICD10: J30.89] Katharine Bahena MD, [facility] CPT- 4: 29833 10/13/2015 ([id number]) 13588 EST. PATIENT, LEVEL IV Diagnosis: Essential (primary) hypertension[ICD10: I10] Diagnosis: Chronic atrial fibrillation[ICD10: I48.2] Diagnosis: Urge incontinence[ICD10: N39.41] Diagnosis: Age-related osteoporosis without current pathological fracture[ICD10: M81.0] Karma Bahena MD, [facility] CPT-4: 13463 09/29/2015 ([id number]) 99349 EST. PATIENT, LEVEL IV Diagnosis: Essential (primary) hypertension[ICD10: I10] Diagnosis: Chronic atrial fibrillation[ICD10: I48.2] Diagnosis: Irritable bowel syndrome without diarrhea[ICD10: K58.9] Diagnosis: Unspecified hemorrhoids[ICD10: K64.9] Karma Bahena MD, [facility] CPT-4: 49331 09/15/2015 ([id number]) 57430 EST. 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 PATIENT, LEVEL III Diagnosis: Hematuria, unspecified[ICD10: R31.9] Diagnosis: Other urethritis[ICD10: N34.2] Diagnosis: Other specified noninflammatory disorders of vagina[ICD10: N89.8] Karma Bahena MD, [facility] CPT-4: 61671 05/26/2015 52333 EST. PATIENT, LEVEL IV Diagnosis: Gout, unspecified[ICD10: M10.9] Karma Bahena MD, [facility] CPT-4: 55529 05/21/2015 ([id number]) 67372 EST. PATIENT, LEVEL IV Diagnosis: Chronic atrial fibrillation[ICD10: I48.2] Diagnosis: Irritable bowel syndrome without diarrhea[ICD10: K58.9] Diagnosis: Cystocele, unspecified[ICD10: N81.10] Diagnosis: Urge incontinence[ICD10: N39.41] Diagnosis: Fecal smearing[ICD10: R15.1] Diagnosis: Hypothyroidism, unspecified[ICD10: E03.9] Karma Bahena MD, [facility] CPT-4: 09196 05/07/2015 ([id number]) 80242 EST. PATIENT, LEVEL III Diagnosis: Atrial fibrillation[ICD9: 427.31] Diagnosis: Bloating[ICD9: 787.3] Karma Bahena MD, [facility] CPT-4: 75637 03/23/2015 ([id number]) 26228 EST. PATIENT, LEVEL IV Diagnosis: Abdominal pain[ICD9: 789.00] Diagnosis: Atrial fibrillation[ICD9: 427.31] Diagnosis: ENCNTR LONG-ANTICOAG USE[ICD9: V58.61] Karma Bahena MD, [facility] CPT-4: 45999 03/09/2015 ([id number]) 92910 EST. PATIENT, LEVEL IV Diagnosis: HEMATURIA NOS[ICD9: 599.70] Diagnosis: Atrial fibrillation[ICD9: 427.31] Diagnosis: HYPOTHYROIDISM[ICD9: 244.9] Karma Bahena MD, [facility] CPT-4: 97311 10/30/2014 ([id number]) 40184 EST. PATIENT, LEVEL IV Diagnosis: Atrial fibrillation[ICD9: 427.31] Diagnosis: ALLERGIC RHINITIS[ICD9: 477.9] Diagnosis: Need for pneumococcal vaccine[ICD9: V03.82] Diagnosis: Osteoarthritis[ICD9: 715.90] Diagnosis: Osteoporosis[ICD9: 733.00] Karma Bahena MD [facility] CPT-4: 80564 07/11/2014 ([id number]) 13361 EST. PATIENT, LEVEL III Diagnosis: Urge incontinence[ICD9: 788.31] Diagnosis: Dysuria[ICD9: 788.1] Karma Bahena MD [facility] CPT-4: 67173 05/20/2014 ([id number]) 65896 EST. PATIENT, LEVEL IV Diagnosis: Atrial fibrillation[ICD9: 427.31] Diagnosis: Hematuria[ICD9: 599.70] Diagnosis: Dysuria[ICD9: 788.1] Diagnosis: ESSENTIAL HYPERTENSION[ICD9: 401.9] Karma Bahena MD [facility] CPT- 4: 42834 04/29/2014 ([id number]) 81855 EST. PATIENT, LEVEL IV Diagnosis: ESSENTIAL HYPERTENSION[ICD9: 401.9] Diagnosis: ALLERGIC RHINITIS[ICD9: 477.9] Karma Bahena MD [facility] CPT-4: 41891 03/20/2014 ([id number]) 43132 EST. PATIENT, LEVEL IV Diagnosis: ESSENTIAL HYPERTENSION[ICD9: 401.9] Diagnosis: ATRIAL FIBRILLATION[ICD9: 427.31] Diagnosis: Irritable bowel[ICD9: 564.1] Karma Bahena MD [facility] CPT-4: 51020 03/05/2014 ([id number]) 35390 EST. PATIENT, LEVEL IV Diagnosis: Esophageal reflux[ICD9: 530.81] Diagnosis: DIARRHEA[ICD9: 787.91] Diagnosis: ABDOM PAIN NOS SITE[ICD9: 789.00] Karma Bahena MD [facility] CPT- 4: 68138 01/29/2014 ([id number]) 06364 EST. PATIENT, LEVEL III Diagnosis: Irritable bowel[ICD9: 564.1] Diagnosis: DIARRHEA[ICD9: 787.91] Laura Bahena MD [facility] CPT-4: 02277 01/14/2014 ([id number]) 96157 EST. PATIENT, LEVEL IV Diagnosis: ESSENTIAL HYPERTENSION[ICD9: 401.9] Diagnosis: ATRIAL FIBRILLATION[ICD9: 427.31] Diagnosis: URGE INCONTINENCE[ICD9: 788.31] Diagnosis: MALAISE AND FATIGUE[ICD9: 780.79] Diagnosis: Dyspnea[ICD9: 786.09] Karma Bahena MD, [facility] CPT-4: 44409 12/25/2013 ([id number]) 41258 EST. PATIENT, LEVEL IV Diagnosis: ESSENTIAL HYPERTENSION[SNOMED: 58951918] Diagnosis: ATRIAL FIBRILLATION[ICD9: 427.31] Diagnosis: Abdominal pain[ICD9: 789.00] Diagnosis: ESOPHAGEAL REFLUX[ICD9: 530.81] Karma Bahena MD [facility] CPT-4: 49883 11/27/2013 ([id number]) 20350 EST. PATIENT, LEVEL IV Diagnosis: ESSENTIAL HYPERTENSION[SNOMED: 48965936] Diagnosis: ATRIAL FIBRILLATION[ICD9: 427.31] Diagnosis: Chronic osteoarthritis[ICD9: 715.90] Karma Bahena MD [facility] CPT- 4: 19086 09/12/2013 ([id number]) 96425 EST. PATIENT, LEVEL III Diagnosis: ESSENTIAL HYPERTENSION[SNOMED: 34199972] Diagnosis: Bruising[ICD9: 924.9] Diagnosis: ENCNTR LONG-RX USE NEC[ICD9: V58.69] Karma Bahena MD [facility] CPT- 4: 43509 08/15/2013 ([id number]) 06686 EST. PATIENT, LEVEL IV Diagnosis: ESSENTIAL HYPERTENSION[SNOMED: 85677290] Diagnosis: Hematuria[ICD9: 599.70] Diagnosis: Dysuria[ICD9: 788.1] Karma Bahena MD, [facility] CPT-4: 48269 08/01/2013 ([id number]) 13868 EST. PATIENT, LEVEL III Diagnosis: UTI[ICD9: 599.0] Diagnosis: Hematuria[ICD9: 599.70] Laura Bahena MD, [facility] CPT-4: 90792 07/01/2013 ([id number]) 39195 EST. PATIENT, LEVEL III Diagnosis: ATRIAL FIBRILLATION[ICD9: 427.31] Diagnosis: ESSENTIAL HYPERTENSION[SNOMED: 25477199] Karma Bahena MD [facility] CPT-4: 59689 05/29/2013 ([id number]) 46534 EST. PATIENT, LEVEL IV Diagnosis: Atrial fibrillation[ICD9: 427.31] Diagnosis: Encounter for monitoring digoxin therapy[ICD9: V58.83] Diagnosis: ESSENTIAL HYPERTENSION[SNOMED: 89307039] Karma Bahena MD [facility] CPT-4: 09738 05/15/2013 ([id number]) 80021 EST. PATIENT, LEVEL IV Diagnosis: ESSENTIAL HYPERTENSION[SNOMED: 66402669] Diagnosis: ATRIAL FIBRILLATION[ICD9: 427.31] Diagnosis: PALPITATIONS[ICD9: 785.1] Diagnosis: Dizziness and giddiness[ICD9: 780.4] Karma Bahena MD [facility] CPT- 4: 16939 04/23/2013 ([id number]) 83498 EST. PATIENT, LEVEL III Diagnosis: OTHER CONSTIPATION[ICD9: 564.09] Diagnosis: ABDOM PAIN NOS SITE[ICD9: 789.00] Laura Bahena MD [facility] CPT- 4: 82859 03/21/2013 ([id number]) 59031 EST. PATIENT, LEVEL IV Diagnosis: ESSENTIAL HYPERTENSION[SNOMED: 01777986] Diagnosis: Atrial fibrillation[ICD9: 427.31] Karma Bahena MD [facility] CPT- 4: 43073 01/16/2013 ([id number]) Miscellaneous no charge Diagnosis: CELLULITIS OF HAND[ICD9: 682.4] Karma Bahena MD [facility] CPT-4: 77379 12/19/2012 ([id number]) Miscellaneous no charge Diagnosis: ENCOUNTER FOR THERAPEUTIC DRUG MONITORING[ICD9: V58.83] Diagnosis: CELLULITIS OF HAND[ICD9: 682.4] Karma Bahena MD [facility] CPT-4: 59516 12/14/2012 Miscellaneous no charge Diagnosis: CELLULITIS OF HAND[ICD9: 682.4] Karma Bahena MD, [facility] CPT-4: 62375 12/12/2012 36380 EST. PATIENT, LEVEL II Diagnosis: CELLULITIS OF HAND[ICD9: 682.4] Diagnosis: ENCNTR LONG-RX USE NEC[ICD9: V58.69] Diagnosis: LONG-TERM USE ANTICOAGUL[ICD9: V58.61] [facility] CPT-4: 08398 12/11/2012 ([id number]) 27391 EST. PATIENT, LEVEL III Diagnosis: CELLULITIS OF HAND[ICD9: 682.4] Karma Bahena MD, [facility] CPT-4: 30348 12/10/2012 ([id number]) 10404 EST. PATIENT, LEVEL IV Diagnosis: Elevated digoxin level[ICD9: 796.0] Diagnosis: ATRIAL FIBRILLATION[ICD9: 427.31] Diagnosis: Inflammatory arthritis[ICD9: 714.9] Karma Bahena MD [facility] CPT- 4: 84181 10/30/2012 ([id number]) 53962 EST. PATIENT, LEVEL IV Diagnosis: Atrial fibrillation[ICD9: 427.31] Diagnosis: Anticoagulant long-term use[ICD9: V58.61] Diagnosis: ESSENTIAL HYPERTENSION[SNOMED: 88277659] Karma Bahena MD [facility] CPT-4: 84889 08/08/2012 ([id number]) 65981 EST. PATIENT, LEVEL IV Diagnosis: ABDOM PAIN NOS SITE[ICD9: 789.00] Diagnosis: Constipation - functional[ICD9: 564.09] Diagnosis: EDEMA[ICD9: 782.3] Diagnosis: ATRIAL FIBRILLATION[ICD9: 427.31] [facility] CPT- 4: 04898 07/11/2012 ([id number]) 87099 EST. PATIENT, LEVEL III Diagnosis: Cystocele[ICD9: 618.01] Diagnosis: Rectocele[ICD9: 618.04] Karma Bahena MD, [facility] CPT-4: 99057 05/08/2012 ([id number]) 77532 EST. PATIENT, LEVEL IV Diagnosis: Atrial fibrillation[ICD9: 427.31] Diagnosis: ESSENTIAL HYPERTENSION[SNOMED: 15141270] Diagnosis: Status post small bowel resection[ICD9: V45.89] Diagnosis: ENCNTR LONG-ANTICOAG USE[ICD9: V58.61] Karma Bahena MD [facility] CPT-4: 13256 04/18/2012 ([id number]) Patient admitted to the hospital from clinic (NO CHARGE) Diagnosis: Abdominal pain[ICD9: 789.00] Diagnosis: Nausea and vomiting[ICD9: 787.01] Diagnosis: ESSENTIAL HYPERTENSION[SNOMED: 54579647] Karma Bahena MD, [facility] CPT-4: 04835R 03/13/2012 ([id number]) 49245 EST. PATIENT, LEVEL IV Diagnosis: ATRIAL FIBRILLATION[ICD9: 427.31] Diagnosis: URGE INCONTINENCE[ICD9: 788.31] Diagnosis: MALAISE AND FATIGUE[ICD9: 780.79] Diagnosis: Dyspnea[ICD9: 786.09] Karma Bahena MD [facility] CPT-4: 72708 02/20/2012 [id number] EST. PATIENT, LEVEL IV Diagnosis: Hematuria[ICD9: 599.70] Diagnosis: Vaginal yeast infection[ICD9: 112.1] Diagnosis: ATRIAL FIBRILLATION[ICD9: 427.31] Laura Bahena MD [facility] CPT- 4: 96678 02/13/2012 ([id number]) 08050 EST. PATIENT, LEVEL IV Diagnosis: Atrial fibrillation[ICD9: 427.31] Diagnosis: Anticoagulation goal of INR 2 to 3[ICD9: V58.83] Diagnosis: Urinary incontinence, urge[ICD9: 788.31] Diagnosis: ESSENTIAL HYPERTENSION[SNOMED: 74445173] Karma Bahena MD, [facility] CPT-4: 41330 02/01/2012 ([id number]) 13226 EST. PATIENT, LEVEL IV Diagnosis: Atrial fibrillation[ICD9: 427.31] Diagnosis: Anticoagulant long-term use[ICD9: V58.61] Diagnosis: ESSENTIAL HYPERTENSION[SNOMED: 60859479] Karma Bahena MD [facility] CPT-4: 53285 2012 38226 EST. PATIENT, LEVEL IV Diagnosis: UTI[ICD9: 599.0] Diagnosis: ESSENTIAL HYPERTENSION[SNOMED: 89313328] Diagnosis: MALAISE AND FATIGUE[ICD9: 780.79] Diagnosis: Esophageal reflux[ICD9: 530.81] Karma Bahena MD, [facility] CPT-4: 62254 12/01/2011 ([id number]) 99817 EST. PATIENT, LEVEL IV Diagnosis: UTI (urinary tract infection)[ICD9: 599.0] Diagnosis: ESSENTIAL HYPERTENSION[SNOMED: 95761560] Diagnosis: URGE INCONTINENCE[ICD9: 788.31] Karma Bahena MD, [facility] CPT-4: 02395 11/23/2011 ([id number]) 68120 EST. PATIENT, LEVEL IV Diagnosis: ESSENTIAL HYPERTENSION[SNOMED: 63911840] Diagnosis: IMPACTED CERUMEN[ICD9: 380.4] Diagnosis: MALAISE AND FATIGUE[ICD9: 780.79] Diagnosis: EDEMA[ICD9: 782.3] Karma Bahena MD, [facility] CPT-4: 42955 10/03/2011 07965 EST. PATIENT, LEVEL IV Diagnosis: ESSENTIAL HYPERTENSION[SNOMED: 07459981] Diagnosis: Generalized osteoarthritis[ICD9: 715.09] Diagnosis: OSTEOPOROSIS[ICD9: 733.00] Karma Bahena MD, [facility] CPT-4: 73274 08/08/2011 77362 EST. PATIENT, LEVEL IV Diagnosis: Muscle cramp[ICD9: 729.82] Diagnosis: Torticollis[ICD9: 723.5] Diagnosis: Rash[ICD9: 782.1] Karma Bahena MD, [facility] CPT-4: 65601 05/09/2011 75850 EST. PATIENT, LEVEL IV Diagnosis: Leg cramps, sleep related[ICD9: 327.52] Diagnosis: Underweight[ICD9: 783.22] Karma Bahena MD, [facility] CPT-4: 25646 03/29/2011 13641 EST. PATIENT, LEVEL IV Diagnosis: UTI[ICD9: 599.0] Diagnosis: Urge incontinence[ICD9: 788.31] Diagnosis: Loss of weight[ICD9: 783.21] Diagnosis: Palpitations[ICD9: 785.1] Diagnosis: Peripheral neuropathy, idiopathic[ICD9: 356.9] [facility] CPT-4: 21940 03/15/2011 Plan of Care Planned Activity Notes [...] fever/discomfort. 11/30/2018 Appointment: Laura Colin WPtel: [phone] [phone] [place] (30 min) Complex 11/30/2018 Patient Education: Patient Medication Summary Completed 11/30/2018 Appointment: Karma Bahena WPtel: [address] [facility] [place] (15 min) Moderate 11/14/2018 Visit Plan: [...] imvexxy 10/31/2018 Appointment: Karma Bahena WPtel: [address] [facility] [place] (15 min) Moderate 10/31/2018 Patient Education: Patient Medication Summary Completed 10/31/2018 Visit Plan: Hand pain with arthritis - Raynaud syndrome - discussed with pt - RX for Voltaren gel sent to the pharmacy. continue with amlodipine. 10/09/2018 Appointment: Karma Bahena WPtel: [facility]9 [facility]6[address] (15 min) Moderate 10/09/2018 Patient Education: Patient Medication Summary Completed 10/09/2018 Appointment: Karma Bahena WPtel: [facility]3 [facility]6[address] (15 min) Moderate 10/01/2018 Visit Plan: [...] or concerns. 09/12/2018 Appointment: Katharine Dai WPtel: [facility]2 [facility] (15 min) Moderate 09/12/2018 Patient Education: Patient Medication Summary Completed 09/12/2018 Appointment: Karma Bahena WPtel: [facility] (15 min) Moderate 08/16/2018 Visit Plan: I [...] surgically removed. 08/14/2018 Appointment: Karma Bahena WPtel: [facility]6 [facility] [place] (15 min) Moderate 08/14/2018 Patient Education: [...] removed. 07/26/2018 Appointment: [facility]Ptel[facility] [place] (15 min) Moderate 07/26/2018 Patient [...] not improving. 06/04/2018 Appointment: Karma Bahena WPtel: [phone] [facility] (15 min) Moderate 06/04/2018 Patient Education: Patient Medication Summary Completed 06/04/2018 Appointment: Karma Bahena WPtel: [facility]3 [facility] (15 min) Moderate 03/14/2018 Visit Plan: Hypertension [...] of control. 01/31/2018 Appointment: Katharine Dai WPtel: [facility]0 [facility] [facility] - Annual Wellness Visit 01/31/2018 [...] allergy spray. 12/14/2017 Appointment: Karma Bahena WPtel: [address] [place], [place] [phone] (15 min) Moderate 12/14/2017 Patient Education: Patient [...] allergy spray. 12/07/2017 Appointment: Katharine Dai WPtel: [facility]3 [facility] (15 min) Moderate 12/07/2017 Patient Education: Patient [...] q 3 months or q 6 m [facility] based on previous levels of control. 11/14/2017 Appointment: Karma Bahena WPtel[facility] (15 min) Moderate 11/14/2017 Patient Education: [...] today. 03/27/2017 Appointment: Karma Bahena WPtel: [facility] (15 min) Moderate 03/27/2017 Patient Education: [...] care surrogate. 01/23/2017 Appointment: Katharine Dai WPtel: [facility]5 [facility] [facility] - Annual Wellness Visit 01/23/2017 [...] becoming uncontrolled. 01/19/2017 Appointment: Karma Bahena WPtel: [address] [place], [place] [phone] (15 min) Moderate 01/19/2017 Patient Education: Patient Medication Summary Completed 01/19/2017 Care Plan: Referral Order SNOMED-CT : 154087484 Pending 01/19/2017 Appointment: Karma Bahena WPtel: [address] [place], [place] [phone] (15 min) Moderate 01/04/2017 Appointment: Karma Bahena WPtel: [address] [place], [place] [phone] (15 min) Moderate 12/28/2016 Visit Plan: YHO-[id number]-[id number] zpack-call if symptoms do not resolve or if any worse. Patient verbalized understanding of plan. 11/29/2016 Appointment: Laura Colin WPtel: [facility] [place] (15 min) Moderate 11/29/2016 Patient Education: [...] pharmacy. 11/23/2016 Appointment: Katharine Dai WPtel: [facility] (15 min) Moderate 11/23/2016 Patient Education: Patient Medication Summary Completed 11/23/2016 Visit Plan: Pharyngitis-Discussed natural and expected course of this diagnosis and need to alert me if symptoms do not follow expected course, or if any worse. Recommended salt water gargles as needed for pain. Ty lenol/motrin as needed for fever/discomfort. 11/21/2016 Appointment: Laura Colin WPtel: [facility]0 [id number] (15 min) Moderate 11/21/2016 Patient Education: Patient [...] monitor symptoms. 11/08/2016 Appointment: Karma Bahena WPtel: [facility]4 [facility] (10 min) Simple 11/08/2016 Patient Education: Patient [...] etc. 11/02/2016 Appointment: Karma Bahena WPtel: [phone] [facility] (15 min) Moderate 11/02/2016 Appointment: Nurse Visit 11/02/2016 Patient Education: Patient Medication Summary Completed 11/02/2016 Appointment: Nurse Visit 10/31/2016 Visit Plan: Laceration-right forearm- Pt was instructed to keep the wound clean, cleanse with sterile saline, use bactroban ointment, call if redness, pustular drainage, or any other acute concerns. Follow up Monday for dressing changes. 10/27/2016 Appointment: Laura Colin WPtel: [phone] [place] (30 min) Complex 10/27/2016 Patient Education: [...] in symptoms. 08/31/2016 Appointment: Karma Bahena WPtel: [facility]8 [facility] (15 min) Moderate 08/31/2016 Patient Education: Patient [...] your swelling. 07/27/2016 Appointment: Karma Bahena WPtel: [address] [place] [address] (15 min) Moderate 07/27/2016 Patient Education: Patient [...] of lasix 06/23/2016 Appointment: Karma Bahena WPtel: [facility]3 [facility] (15 min) Moderate 06/23/2016 Patient Education: Patient Medication Summary Completed 06/23/2016 Patient Education: Hypertension Completed 06/23/2016 Visit Plan: Edema - with Dyspnea - RX for laxis and compression socks - pt to call if not improving. 06/09/2016 Appointment: Karma Bahena WPtel: [facility]2 [facility] [place] (15 min) Moderate 06/09/2016 Patient Education: Patient Medication Summary Completed 06/09/2016 Visit Plan: Abdominal pain and rectal itching - recommended pt to use betamethasone on vaginal/rectal region, monitor symptoms call if not improving. 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 12/21/2015 Appointment: Laura Colin WPtel: [phone] (30 min) Complex 12/21/2015 Patient Education: Patient [...] becoming uncontrolled. 11/03/2015 Appointment: Karma Bahena WPtel: 1013 [facility] (15 min) Moderate 11/03/2015 Patient Education: Patient [...] had left kidney and ureter removed in [place]-doing well 09/01/2015 Appointment: (30 min) Complex 09/01/2015 Patient Education: Patient Medication Summary Completed 09/01/2015 Patient Education: Hypertension Completed 09/01/2015 Appointment: Karma Bahena WPtel: [facility]5 [facility] (15 min) Moderate 07/13/2015 Visit Plan: [...] 05/13/2015 Care Plan: Referral Order SNOMED-CT : [id number] Ordered 05/08/2015 Visit Plan: Atrial Fibrillation - [...] Collins. 05/07/2015 Appointment: Karma Bahena WPtel: [facility] [place] (15 min) Moderate 05/07/2015 Patient [...] uncontrolled. 10/30/2014 Appointment: Karma Bahena WPtel: [facility] [place] Follow up 10/30/2014 Patient Education: Patient Medication Summary Completed 10/30/2014 Appointment: Karma Bahena WPtel: [facility] [place] Follow up 07/22/2014 Visit Plan: [...] in hospital. 07/11/2014 Appointment: Karma Bahena WPtel: [address] [place], [place] [phone] Sick 07/11/2014 Patient Education: Patient Medication Summary Completed 07/11/2014 Appointment: Karma Bahena WPtel: [address] [place], [place] [address] Follow up 07/07/2014 Visit Plan: Urinary incontinence and recurrent UTI's - doctor will refer to Dr. Joel Collins - for nonsurgical intervention for potential electrical stimulation/training of pelvic floor muscles - for strengthening - can start on the treatment when you get back from [place] - will also ask him about doing a cystoscopy to look into bladder to see if there is any bladder irritation. keep using the Premarin - use about 25Cent size of cream onto finger to apply to urethra and do this three times weekly. 05/20/2014 Appointment: Karma Bahena WPtel: [address] [place], [place] [phone] Follow up 05/20/2014 Patient Education: Patient Medication Summary Completed 05/20/2014 Appointment: Karma Bahena WPtel: [address] [place], [place] [phone] Lab Draw 05/14/2014 Patient Education: Patient Medication [...] recommended vesicare. 04/29/2014 Appointment: Karma Bahena WPtel: [address] [place] [address] Follow up 04/29/2014 Patient Education: Patient Medication [...] allergy spray. 03/20/2014 Appointment: Karma Bahena WPtel: [facility]5 [facility] Sick 03/20/2014 Patient Education: Patient Medication Summary [...] uncontrolled. 03/05/2014 Appointment: Karma Bahena WPtel: [phone] [facility] Follow up 03/05/2014 Patient Education: Patient Medication [...] with report. 01/29/2014 Appointment: Karma Bahena WPtel: [facility]5 [facility] Follow up 01/29/2014 Patient Education: Patient Medication [...] exposure,and dyspnea on exertion - will ask [facility] do an overnight oxygen study on [place] as she has cardiac history, weight loss, and nocturnal hypoxemia may be a part of her weight loss and fatigue. 12/25/2013 Appointment: Karma Bahena WPtel: 1015 [facility] Follow up 12/25/2013 Patient Education: Patient Medication [...] daily. 11/27/2013 Appointment: Karma Bahena WPtel: [facility] Follow up 11/27/2013 Patient Education: Patient [...] heart rate. Osteoarthritis - send pt to [facility] physical therapy for gereral osteoarhtritis program for strengthening and pain reduction. Hypertension - well controlled - continue with current medications, continue with no added salt diet. Pt has been encouraged to exercise daily. The pt has been advised to call the office if there are any acute concerns about change in blood pressure readings at home. 09/12/2013 Appointment: Karma Bahena WPtel: 1015 [facility] Follow up 09/12/2013 Patient Education: Patient Medication Summary Completed 09/12/2013 Patient Education: Hypertension Completed 09/12/2013 Appointment: Karma Bahena WPtel: [address]5 [facility] Follow up 08/21/2013 Visit Plan: Hypertension - [...] coumadin-check PT/INR 08/15/2013 Appointment: Karma Bahena WPtel: [facility]5 [facility] Follow up 08/15/2013 Patient Education: Patient Medication [...] of urethra. 08/01/2013 Appointment: Karma Bahena WPtel: [facility]5 [facility] Follow up 08/01/2013 Patient Education: Patient Medication Summary Completed 08/01/2013 Patient Education: Hypertension Completed 08/01/2013 Appointment: Laura Colin WPtel: [facility]5 [id number] [place] Lab Draw 07/29/2013 Patient Education: Patient Medication Summary Completed 07/29/2013 Visit Plan: Osteoporosis-prolia on june 25-patient to let Dr Hansen know 07/01/2013 Appointment: Laura Colin WPtel: [facility]5 [id number] Follow up 07/01/2013 Appointment: Karma Bahena WPtel: [address] [place], [place] [phone] Follow up 07/01/2013 Patient Education: Patient Medication Summary Completed 07/01/2013 Appointment: Karma Bahena WPtel: [address] [place], [place] [phone] Follow up 06/25/2013 Appointment: Karma Bahena WPtel: [address] [place] [address] [place] Lab Draw 06/20/2013 Patient Education: Patient Medication Summary Completed 06/20/2013 Appointment: Karma Bahena WPtel: [address] [place] [address] [place] Lab Draw 06/19/2013 Visit Plan: Atrial [...] home. 05/29/2013 Appointment: Karma Bahena WPtel: 1015 [facility] Follow up 05/29/2013 Patient Education: Patient Medication [...] home. 05/15/2013 Appointment: Karma Bahena WPtel: 1015 [facility] Other 05/15/2013 Patient Education: Patient Medication Summary [...] today. 04/23/2013 Appointment: Karma Bahena WPtel: 1015 [facility] [place] Other 04/23/2013 Patient Education: Patient Medication [...] this regimen. 03/21/2013 Appointment: Laura Colin WPtel: [facility]5 [id number] Follow up 03/21/2013 Patient Education: Patient Medication [...] becoming uncontrolled. 01/16/2013 Appointment: Karma Bahena WPtel: [address] [place], [place] [phone] Follow up 01/16/2013 Patient Education: Patient Medication Summary Completed 01/16/2013 Patient Education: Hypertension Completed 01/16/2013 Visit Plan: Wound Instructions - Pt was instruced to keep the wound clean, wash with antibacterial soap, use triple antibiotic ointment, call if redness, pustular drainage, or any other acute conerns. 12/19/2012 Appointment: Karma Bahena WPtel: [address] [place], [place] [phone] Other 12/19/2012 Patient Education: Patient Medication Summary Completed 12/19/2012 Patient Education: Patient Medication Summary Completed 12/17/2012 Visit Plan: Cellulitis - improved- monitor symptoms - need to check handon Monday morning. 12/14/2012 Appointment: Karma Bahena WPtel: [address] [place], [place] [phone] Follow up 12/14/2012 Patient Education: Patient Medication Summary Completed 12/14/2012 Visit Plan: Cellulitis - improved- monitor symptoms - need to check handon Monday morning. 12/12/2012 Appointment: Karma Bahena WPtel: [address] [place], [place] [phone] Work-in 12/12/2012 Patient Education: Patient Medication Summary [...] discharge. 12/10/2012 Appointment: Karma Bahena WPtel: 1015 [facility] Other 12/10/2012 Patient Education: Patient Medication Summary [...] becoming uncontrolled. 10/30/2012 Appointment: Karma Bahena WPtel: [facility]5 [facility] Follow up 10/30/2012 Patient Education: Patient Medication Summary Completed 10/30/2012 Appointment: Laura Colin WPtel: [id number] Lab Draw 09/13/2012 Patient Education: Patient Medication [...] 3.5. 08/08/2012 Appointment: Karma Bahena WPtel: [facility] Other 08/08/2012 Patient Education: Patient Medication [...] this regimen. 07/11/2012 Appointment: Karma Bahena WPtel: [facility]5 [facility] swelling, leg edema Other 07/11/2012 Patient [...] medication vaginally. 05/08/2012 Appointment: Karma Bahena WPtel: [facility]5 [facility] Follow up 05/08/2012 Patient Education: Patient [...] during hospitalization. 04/18/2012 Appointment: Karma Bahena WPtel: [facility]5 [facility] Follow up 04/18/2012 Patient Education: Patient Medication Summary Completed 04/18/2012 Patient Education: High Blood Pressure: Essential Hypertension Completed 04/18/2012 Appointment: Karma Bahena WPtel: [address] [place], [place] [phone] [place] Follow up 04/09/2012 Appointment: Karma Bahena WPtel: [facility]5 [facility] [place] Lab Draw 04/04/2012 Appointment: Laura Colin WPtel: [facility] [place] Lab Draw 03/19/2012 Visit Plan: Abdominal [...] Hypertension Completed 03/13/2012 Appointment: Karma Bahena WPtel: [facility]6 [facility] Lab Draw 03/08/2012 Patient Education: Patient [...] cardiac rehab. 02/20/2012 Appointment: Karma Bahena WPtel: [facility]4 [facility] Other 02/20/2012 Patient Education: Patient Medication [...] uncontrolled. 02/13/2012 Appointment: Laura Colin WPtel: [facility] Other 02/13/2012 Patient Education: Patient Medication Summary Completed 02/13/2012 Appointment: Karma Bahena WPtel: [facility] [place] Lab Draw 02/07/2012 Visit Plan: [...] medication. 02/01/2012 Appointment: Karma Bahena WPtel: [facility] Other 02/01/2012 Patient Education: Patient Medication Summary Completed 02/01/2012 Patient Education: High Blood Pressure: Essential Hypertension Completed 02/01/2012 Appointment: Karma Bahena WPtel: [facility] [place] Lab Draw 01/17/2012 Visit Plan: [...] at home. 2012 Appointment: Karma Bahena WPtel: [facility]3 [facility]6676[facility] Other 2012 Patient Education: Patient Medication Summary Completed 2012 Patient Education: High Blood Pressure: Essential Hypertension Completed 2012 Appointment: Karma Bahena WPtel: [facility] [address] Follow up 12/20/2011 Visit Plan: Dicyclomine [...] emergency room. 12/01/2011 Appointment: Karma Bahena WPtel: [address] [place] [address] Other 12/01/2011 Patient Education: Patient Medication Summary [...] infection resolves. 11/23/2011 Appointment: Laura Colin WPtel: [address] [place], [place] [phone] [place] Other 11/23/2011 Patient Education: Patient Medication Summary Completed 11/23/2011 Patient Education: High Blood Pressure: Essential Hypertension Completed 11/23/2011 Visit Plan: Cerumen Impaction - The impacted cerumen was removed with the use of either ear currette alone or in combination with ear curette and water pick. The patient tolerated the procedure without incident and had improvement in hearing 10/17/2011 Appointment: Laura Colin WPtel: [address] [place], [place] [id number] [place] Other 10/17/2011 Patient Education: Patient Medication [...] by irrigation. 10/03/2011 Appointment: Karma Bahena WPtel: [facility]1 [address] Other 10/03/2011 Patient Education: Patient Medication [...] is evidence. 08/08/2011 Appointment: Karma Bahena WPtel: [facility]4 [address] Other 08/08/2011 Patient Education: Patient Medication Summary Completed 08/08/2011 Patient Education: High Blood Pressure: Essential Hypertension Completed 08/08/2011 Visit Plan: Muscle cramps - the cramps are a little better, continue with the Diltiazem and it is okay to use the over the counter supplement with quinine - but use it sparingly. For the rash, use the prescripti on the dairy feed worker prescribed for the itching , call if the rash is not improved. Torticollis - continue with physical therapy, call if the neck muscles do not continue to show improvement. 05/09/2011 Appointment: Karma Bahena WPtel: [address] [place] [address] Other 05/09/2011 Patient Education: Patient Medication Summary [...] water aerobics. 03/29/2011 Appointment: Karma Bahena WPtel: [address] [place] [address] Other 03/29/2011 Patient Education: Patient Medication Summary Completed 03/29/2011 Appointment: Karma Bahena WPtel: [address] [place] [address] Other 03/17/2011 Visit Plan: UTI - UA negative. Urge incontinence- restart on the vesicare- at 5 mg. Continue to avoid caffinated foods/fluids. Peripheral Neuropathy - per shuttle route vehicle operator report - Continue with the metanex. Loss of weight - WEIGHT CHECK IN 2 WKS. Palpitations- likely stress induced. If the symptoms worsen, call the office. 03/15/2011 Appointment: Karma Bahena WPtel: [address] [place] [address] Follow up 03/15/2011 Patient Education: Patient Medication [...] avoid caffinated foods/fluids. Peripheral Neuropathy - per shuttle route vehicle operator report - Continue with the metanex. Loss [...] therefore, would not change the medication. . [id number] zpack-call if symptoms do not resolve or [...] For the rash, use the prescription the dairy feed worker prescribed for the itching , call if [...] heart rate. Osteoarthritis - send pt to [facility] physical therapy for gereral osteoarhtritis program for [...] had left kidney and ureter removed in [place]- doing well . Hematuria - check UA. [...] the treatment when you get back from [place] - will also ask him about doing [...] the treatment when you get back from [place] - will also ask him about doing [...] exposure,and dyspnea on exertion - will ask [facility] do an overnight oxygen study [...]
--- OUTSIDE RECORDS SUMMARY | 2018-12-10 17:29 | XMS REPORT | CCD ---
Author Author Laura Colin Organization Karma Bahena MD, [facility] Address [address] [place] [address] Phone Care Team Providers Care Medical Staff Assistant Name Role Phone Karma Bahena PP Unavailable CCM Unavailable Summary Purpose Interface Exchange Insurance Providers Payer name Policy type / Coverage type Covered democrat ID Effective Begin Date Effective End Date WPS Medicare Part B Medicare Part B [id number] 2018 Unknown AARP Medicare Part B [id number] 2018 Unknown Family history Sister Diagnosis Age [...] Unknown House 03/15/[address]: 690898060 Never smoker 03/15/2011 Has the patient ever used illegal drugs? Unknown Has never used illegal drugs 03/15/2011 Allergies, Adverse Reactions, Alerts Substance Reaction Codes Entered Date Inactivated Date Status BACTINE RxNorm: 953848 03/04/2011 No Inactive Date Active MICONAZOLE RxNorm: 6932 03/04/2011 No Inactive Date Active NEOSPORIN RxNorm: 856996 03/04/2011 No Inactive Date Active NEOMYCIN RxNorm: 7299 03/04/2011 No Inactive Date Active CORTISPORIN RxNorm: 91263 03/04/2011 No Inactive Date Active bactrim RxNorm: 265718 03/13/2012 No Inactive Date Active AUGMENTIN diarrhea RxNorm: 605411 2016 No Inactive Date Active METRONIDAZOLE Unknown 03/04/2011 No Inactive Date Active NYSTATIN Unknown 03/04/2011 No Inactive Date Active PNEUMOCOCCAL VACCINE Unknown 03/04/2011 No Inactive Date Active Past Medical History Illness Codes Condition Status Onset Date Resolved Date Acute laryngopharyngitis ICD-9: 465.0 ICD-10: J06.0 Active 11/21/2016 Unknown Atrophy of thyroid (acquired) ICD-9: 244.8 ICD-10: E03.4 Active 11/02/2016 Unknown Chronic atrial fibrillation ICD-9: 427.31 ICD-10: I48.2 Active 12/25/2013 Unknown Essential (primary) hypertension ICD-9: 401.1 ICD-10: I10 Active 01/19/2017 Unknown Postmenopausal atrophic vaginitis ICD-9: 627.3 ICD-10: N95.2 Active 10/31/2018 Unknown Pain in left hand ICD-9: 729.5 ICD-10: M79.642 Active 10/09/2018 Unknown Pain in right hand ICD- 9: 729.5 ICD-10: M79.641 Active 10/09/2018 Unknown Raynaud's syndrome without 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 Active 07/26/2018 Unknown Cough ICD-9: 786.2 ICD-10: R05 Active 11/23/2016 Unknown Hypothyroidism, unspecified ICD-9: 244.9 ICD-10: E03.9 [...] 401.9 ICD-10: I10 Active 12/25/2013 Unknown Other vermin exterminator (current) drug therapy ICD-9: V58.83 ICD-10: Z79.899 [...] 706.2 ICD-10: L72.0 Active 02/01/2016 Unknown Other chcf (current) drug therapy ICD-9: V58.69 ICD-10: Z79.899 [...] Problems Condition Codes Effective Dates Condition Status Acute laryngopharyngitis ICD-9: 465.0 ICD-10: J06.0 11/21/2016 Active Atrophy of thyroid (acquired) ICD-9: 244.8 ICD-10: E03.4 11/02/2016 Active Chronic atrial fibrillation ICD-9: 427.31 ICD-10: I48.2 12/25/2013 Active Essential (primary) hypertension ICD-9: 401.1 ICD-10: I10 01/19/2017 Active Postmenopausal atrophic vaginitis ICD-9: 627.3 ICD-10: N95.2 10/31/2018 Active Pain in left hand ICD-9: 729.5 ICD-10: M79.642 10/09/2018 Active Pain in right hand ICD- 9: 729.5 ICD-10: M79.641 10/09/2018 Active Raynaud's syndrome without 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 07/26/2018 Active Cough ICD-9: 786.2 ICD-10: R05 11/23/2016 Active Hypothyroidism, unspecified ICD-9: 244.9 ICD-10: E03.9 [...] ICD-9: 401.9 ICD-10: I10 12/25/2013 Active Other vermin exterminator (current) drug therapy ICD-9: V58.83 ICD-10: Z79.899 [...] ICD-9: 706.2 ICD-10: L72.0 02/01/2016 Active Other chcf (current) drug therapy ICD-9: V58.69 ICD-10: Z79.899 [...] Fill Instructions Keflex 500 mg capsule RxNorm: 072825 1 Capsule(s) PO TID 11/30/2018 12/06/2018 Active pantoprazole 40 mg tablet,delayed release RxNorm: 959474 1 TABLET(S) PO DAILY 11/29/2018 11/23/2019 Active amlodipine 5 mg tablet RxNorm: 763977 Tablet(s) 1/2 TABLET(S) PO DAILY MAY TAKE AN EXTRA 1/2 PILL AT THE END OF THE DAY IF BLOOD PRESSURE IS ELEVATED OVER 140 11/29/2018 05/27/2019 Active cyclobenzaprine 5 mg tablet RxNorm: 724622 1/2 Tablet(s) PO TID TABLET(S) 1/2 TABLET(S) PO Q8 NEEDED MUSCLE SPASMS 10/31/2018 04/28/2019 Active Imvexxy Starter Pack 4 mcg vaginal insert, dose pack RxNorm: 9916847 1 dose VAG BIW 10/31/2018 01/28/2019 Active Voltaren 1 % topical gel RxNorm: 051130 2 Gram(s) TOP QID on left shoulder and bilateral hands 10/17/2018 05/14/2019 Active PA APPROVED UNTIL JUL 09 2019 [id number] amlodipine 5 mg tablet RxNorm: 960743 1/2 TABLET(S) PO DAILY MAY TAKE AN EXTRA 1/2 PILL AT THE END OF THE DAY IF BLOOD PRESSURE IS ELEVATED OVER 140 10/15/2018 11/28/2018 Inactive Patient requests 90 days supply Voltaren 1 % topical gel RxNorm: 991768 2 Gram(s) TOP QID on left shoulder and bilateral hands 10/09/2018 10/16/2018 Inactive levothyroxine 75 mcg tablet RxNorm: 890952 1 Tablet(s) PO daily 09/19/2018 01/16/2019 Active Keflex 500 mg capsule RxNorm: 700734 1 Capsule(s) PO TID 09/12/2018 09/18/2018 Inactive spironolactone 25 mg tablet RxNorm: 959570 1 Tablet(s) PO BID 08/14/2018 11/06/2019 Active see new directions and quantity cyclobenzaprine 5 mg tablet RxNorm: 289693 Tablet(s) TABLET(S) 1/2 TABLET(S) PO Q8 NEEDED MUSCLE SPASMS 08/14/2018 10/30/2018 Inactive Nitro-Bid 2 % transdermal ointment RxNorm: 137692 1 dime size amount TD BID to fingers and toes 08/14/2018 09/12/2018 Inactive cyclobenzaprine 5 mg tablet RxNorm: 685169 TABLET(S) 1/2 TABLET(S) PO Q8 NEEDED MUSCLE SPASMS 08/06/2018 08/13/2018 Inactive amlodipine 5 mg tablet RxNorm: 546467 1/2 Tablet(s) PO daily may take an extra 1/2 pill at the end of the day if blood pressure is elevated over 140 07/26/2018 10/14/2018 Inactive cefdinir 300 mg capsule RxNorm: 011575 1 Capsule(s) PO BID 06/20/2018 06/26/2018 Inactive cefdinir 300 mg capsule RxNorm: 385336 1 Capsule(s) PO BID 06/20/2018 06/19/2018 Inactive metoprolol succinate ER 50 mg tablet,extended release 24 hr RxNorm: 701284 1.5 Tablet(s) daily 06/15/2018 03/11/2019 Active sucralfate 100 mg/mL oral suspension RxNorm: 187301 2 Teaspoon(s) PO TID as needed with reflux symptoms 06/04/2018 No Stop Date Active Vesicare 10 mg tablet RxNorm: 452804 1 TABLET(S) PO EVERY OTHER DAY 05/14/2018 01/08/2019 Active levothyroxine 50 mcg tablet RxNorm: 427784 1 TABLET(S) PO DAILY 04/30/2018 09/18/2018 Inactive Patient requests 90 days supply spironolactone 25 mg tablet RxNorm: 021949 1 Tablet(s) PO daily 03/14/2018 08/13/2018 Inactive levothyroxine 50 mcg tablet RxNorm: 820740 1 Tablet(s) PO daily 02/01/2018 04/29/2018 Inactive Eliquis 2.5 mg tablet RxNorm: 8887073 1 Tablet(s) PO BID 01/31/2018 02/20/2018 Inactive levothyroxine 50 mcg tablet RxNorm: 026852 1 Tablet(s) PO daily 01/31/2018 01/31/2018 Inactive Eliquis 2.5 mg tablet RxNorm: 8868916 TAKE 1 TABLET BY MOUTH TWICE DAILY 01/23/2018 07/21/2018 Inactive metoprolol succinate ER 50 mg tablet,extended release 24 hr RxNorm: 270868 1 TABLET(S) PO DAILY 01/23/2018 01/30/2018 Inactive metoprolol succinate ER 50 mg tablet,extended release 24 hr RxNorm: 899322 1.5 Tablet(s) daily 01/22/2018 06/14/2018 Inactive lisinopril 20 mg tablet RxNorm: 067938 1/2 Tablet(s) daily 01/19/2018 01/21/2018 Inactive Patient requests 90 days supply Singulair 10 mg tablet RxNorm: 470634 TAKE 1 TABLET BY MOUTH AT BEDTIME 01/18/2018 04/17/2018 Inactive Patient requests 90 days supply Singulair 10 mg tablet RxNorm: 812507 Tablet(s) PO 01/17/2018 01/17/2018 Inactive digoxin 125 mcg tablet RxNorm: 967206 1 TABLET(S) PO DAILY 01/03/2018 12/28/2018 Active Symbicort 160 mcg-4.5 mcg/actuation HFA aerosol inhaler RxNorm: 6113977 2 Puff(s) INH BID 12/14/2017 04/12/2018 Inactive please dispense an aerochamber for patient as well as her symbicort cyclobenzaprine 5 mg tablet RxNorm: 733104 Tablet(s) 1/2 TABLET(S) PO Q8 NEEDED MUSCLE SPASMS 12/14/2017 08/05/2018 Inactive pantoprazole 40 mg tablet,delayed release RxNorm: 808062 1 Tablet(s) PO daily 12/14/2017 11/28/2018 Inactive ProAir RespiClick 90 mcg/actuation breath activated RxNorm: 7777544 1-2 INH QID as needed shortness of breath 12/14/2017 07/11/2018 Inactive cyclobenzaprine 5 mg tablet RxNorm: 327447 1/2 TABLET(S) PO Q8 NEEDED MUSCLE SPASMS 12/08/2017 12/13/2017 Inactive betamethasone dipropionate 0.05 % topical ointment RxNorm: 145957 1 Application TOP TID use topically on the rectal tissue three times daily x 1 week then as needed 11/13/2017 No Stop Date Active Premarin 0.625 mg/gram vaginal cream RxNorm: 045408 1/2 GRAM(S) VAG TIW 11/13/2017 10/30/2018 Inactive cyclobenzaprine 5 mg tablet RxNorm: 098538 1/2 TABLET(S) PO Q8 NEEDED MUSCLE SPASMS 10/17/2017 12/07/2017 Inactive Vesicare 10 mg tablet RxNorm: 809093 1 Tablet(s) PO every other day 10/17/2017 04/14/2018 Inactive lisinopril 20 mg tablet RxNorm: 922222 1 TABLET(S) PO DAILY 10/02/2017 01/18/2018 Inactive Patient requests 90 days supply levothyroxine 75 mcg tablet RxNorm: 221701 1 TABLET(S) PO DAILY 09/25/2017 01/30/2018 Inactive spironolactone 25 mg tablet RxNorm: 442028 1 TABLET(S) PO DAILY 08/16/2017 03/13/2018 Inactive cyclobenzaprine 5 mg tablet RxNorm: 704407 1/2 TABLET(S) PO Q8 NEEDED MUSCLE SPASMS 08/16/2017 10/16/2017 Inactive Eliquis 2.5 mg tablet RxNorm: 7721713 TAKE 1 TABLET BY MOUTH TWICE DAILY 07/26/2017 01/21/2018 Inactive cyclobenzaprine 5 mg tablet RxNorm: 677272 1/2 Tablet(s) PO Q8 as needed muscle spasms 06/19/2017 08/15/2017 Inactive lisinopril 20 mg tablet RxNorm: 474963 1 TABLET(S) PO DAILY 06/12/2017 10/01/2017 Inactive metoprolol succinate ER 50 mg tablet,extended release 24 hr RxNorm: 504285 1 TABLET(S) PO DAILY 04/07/2017 01/01/2018 Inactive spironolactone 25 mg tablet RxNorm: 726361 1 Tablet(s) PO daily 03/27/2017 03/13/2018 Inactive acyclovir 800 mg tablet RxNorm: 257637 1 Tablet(s) PO TID 03/21/2017 03/30/2017 Inactive acyclovir 800 mg tablet RxNorm: 228148 1 Tablet(s) PO TID 03/21/2017 03/20/2017 Inactive levothyroxine 75 mcg tablet RxNorm: 011835 1 Tablet(s) PO daily 03/16/2017 09/11/2017 Inactive spironolactone 25 mg tablet RxNorm: 369692 1 TABLET(S) PO DAILY 02/09/2017 03/26/2017 Inactive lisinopril 20 mg tablet RxNorm: 897574 1 TABLET(S) PO DAILY 01/02/2017 05/31/2017 Inactive Zithromax Z-Claudio 250 mg tablet RxNorm: 277497 1 Tablet(s) PO UD 11/29/2016 12/03/2016 Inactive ZPACK Keflex 500 mg capsule RxNorm: 987630 1 Capsule(s) PO TID 11/23/2016 12/02/2016 Inactive guaifenesin 400 mg tablet RxNorm: 600188 1 Tablet(s) PO Q6 as needed 11/23/2016 11/27/2016 Inactive omeprazole 40 mg capsule,delayed release RxNorm: 669142 1 Capsule(s) PO QPM 11/02/2016 12/13/2017 Inactive digoxin 125 mcg tablet RxNorm: 853966 1 TABLET(S) PO DAILY 10/27/2016 07/23/2017 Inactive cyclobenzaprine 5 mg tablet RxNorm: 618182 1/2 Tablet(s) PO Q8 PRN 10/25/2016 06/18/2017 Inactive prn muscle spasms Augmentin 500 mg-125 mg tablet RxNorm: 606224 1 Tablet(s) PO BID 10/24/2016 11/02/2016 Inactive Lasix 20 mg tablet RxNorm: 417587 Tablet(s) PRN one to two times a week if needed 07/27/2016 No Stop Date Active Patient requests 90 days supply spironolactone 25 mg tablet RxNorm: 625418 1 Tablet(s) PO daily 07/27/2016 02/08/2017 Inactive Diflucan 150 mg tablet RxNorm: 527370 1 Tablet(s) PO daily 07/27/2016 08/02/2016 Inactive lisinopril 20 mg tablet RxNorm: 431648 1 Tablet(s) PO daily 07/12/2016 01/01/2017 Inactive Lasix 20 mg tablet RxNorm: 341580 1 TABLET(S) PO EVERY OTHER DAY EVERY OTHER DAY 06/10/2016 07/26/2016 Inactive Patient requests 90 days supply potassium chloride ER 10 mEq capsule,extended release RxNorm: 360932 1 CAPSULE(S) PO EVERY OTHER DAY 06/10/2016 07/26/2016 Inactive Patient requests 90 days supply potassium chloride ER 10 mEq capsule,extended release RxNorm: 383030 1 Capsule(s) PO every other day 06/09/2016 06/09/2016 Inactive Lasix 20 mg tablet RxNorm: 239654 1 Tablet(s) PO every other day every other day 06/09/2016 06/09/2016 Inactive levothyroxine 88 mcg tablet RxNorm: 930609 1 Tablet(s) PO daily 05/11/2016 11/06/2016 Inactive Premarin 0.625 mg/gram vaginal cream RxNorm: 890537 1/2 Gram(s) VAG TIW 03/24/2016 03/18/2017 Inactive metoprolol succinate ER 50 mg tablet,extended release 24 hr RxNorm: 683120 1 Tablet(s) PO daily 03/24/2016 03/18/2017 Inactive pantoprazole 40 mg tablet,delayed release RxNorm: 009112 1 Tablet(s) PO daily 02/08/2016 11/01/2016 Inactive betamethasone dipropionate 0.05 % topical ointment RxNorm: 039992 1 Application TOP TID use topically on the rectal tissue three times daily x 1 week then as needed 02/02/2016 11/12/2017 Inactive pantoprazole 40 mg tablet,delayed release RxNorm: 092195 1 Tablet(s) PO daily 2016 02/07/2016 Inactive alprazolam 0.25 mg tablet RxNorm: 484914 1 Tablet(s) PO Q6 as needed 12/04/2015 No Stop Date Active Vesicare 10 mg tablet RxNorm: 990648 1 Tablet(s) PO every other day 11/03/2015 10/16/2017 Inactive alprazolam 0.25 mg tablet RxNorm: 552465 1 Tablet(s) PO Q6 as needed 11/03/2015 12/03/2015 Inactive Premarin 0.625 mg/gram vaginal cream RxNorm: 007239 1/2 Gram(s) VAG TIW 11/03/2015 03/23/2016 Inactive levothyroxine 88 mcg tablet RxNorm: 052794 1 Tablet(s) PO daily 11/03/2015 05/10/2016 Inactive Diflucan 150 mg tablet RxNorm: 774179 1 Tablet(s) PO daily 10/19/2015 10/25/2015 Inactive cetirizine 10 mg chewable tablet RxNorm: 5415029 1 Tablet(s) PO daily 10/13/2015 11/11/2015 Inactive cetirizine 10 mg capsule RxNorm: 7441086 1 Capsule(s) PO daily 10/13/2015 11/11/2015 Inactive Vesicare 10 mg tablet RxNorm: 421717 1/2 TABLET(S) PO BID 09/21/2015 11/02/2015 Inactive betamethasone dipropionate 0.05 % topical ointment RxNorm: 491759 1 Application TOP TID use topically on the rectal tissue three times daily x 1 week then as needed 09/15/2015 02/01/2016 Inactive lisinopril 20 mg tablet RxNorm: 653004 1 Tablet(s) PO daily 09/01/2015 07/11/2016 Inactive digoxin 125 mcg tablet RxNorm: 944723 1 Tablet(s) PO daily 09/01/2015 08/25/2016 Inactive Augmentin 500 mg-125 mg tablet RxNorm: 456830 1 Tablet(s) PO TID 05/26/2015 06/04/2015 Inactive Pyridium 200 mg tablet RxNorm: 6964237 1 Tablet(s) PO TID 05/26/2015 05/27/2015 Inactive levothyroxine 88 mcg tablet RxNorm: 412641 1 Tablet(s) PO daily except 1/2 pill on monday and 05/07/2015 11/02/2015 Inactive digoxin 125 mcg tablet RxNorm: 691252 1 Tablet(s) PO daily 05/07/2015 08/31/2015 Inactive lisinopril 20 mg tablet RxNorm: 278255 1 TABLET(S) PO BID 04/13/2015 09/01/2015 Inactive Coumadin 1 mg tablet RxNorm: 614950 1 TABLET(S) PO DAILY 03/31/2015 08/31/2015 Inactive Coumadin 2 mg tablet RxNorm: 202352 4MG IN AM AND 1MG AT NIGHT TABLET(S) PO DAILY DIRECTED. 03/31/2015 08/31/2015 Inactive levothyroxine 88 mcg tablet RxNorm: 763344 1 Tablet(s) PO daily 03/23/2015 05/06/2015 Inactive alprazolam 0.25 mg tablet RxNorm: 692002 Tablet(s) PO 03/23/2015 04/06/2015 Inactive levothyroxine 88 mcg tablet RxNorm: 335980 1 Tablet(s) PO daily 01/28/2015 03/22/2015 Inactive levothyroxine 88 mcg tablet RxNorm: 181899 1 Tablet(s) PO daily 01/28/2015 01/27/2015 Inactive diltiazem ER 120 mg capsule,extended release RxNorm: 891450 1 Capsule(s) PO BID patient would like 4 months at a time 01/06/2015 09/28/2015 Inactive digoxin 125 mcg tablet RxNorm: 886671 Tablet(s) 1 TABLET(S) PO DAILY 12/24/2014 12/23/2014 Inactive pt will be paying palomares (On $4 list)Patient requests 90 days supply digoxin 125 mcg tablet RxNorm: 040901 Tablet(s) 1 TABLET(S) PO DAILY M W F Sat and 2 tabs on 12/24/2014 05/06/2015 Inactive pt will be paying palomares (On $4 list)Patient requests 90 days supply dicyclomine 20 mg tablet RxNorm: 718765 1 Tablet(s) PO daily 11/17/2014 08/31/2015 Inactive one ac dinner and up to tid prn levothyroxine 88 mcg tablet RxNorm: 934893 1 Tablet(s) PO daily 11/03/2014 01/27/2015 Inactive Premarin 0.625 mg/gram vaginal cream RxNorm: 442631 1 APPLICATION VAG 1 APPLICATOR PER VAGINA 3 TIMES PER WEEK 11/03/2014 07/30/2015 Inactive digoxin 125 mcg tablet RxNorm: 691691 1 TABLET(S) PO DAILY 09/29/2014 12/23/2014 Inactive pt will be paying palomares (On $4 list)Patient requests 90 days supply digoxin 125 mcg tablet RxNorm: 353445 1 TABLET(S) PO DAILY 07/11/2014 04/06/2015 Inactive Vesicare 10 mg tablet RxNorm: 867368 1/2 Tablet(s) PO BID 05/20/2014 05/14/2015 Inactive Levaquin 500 mg tablet RxNorm: 161943 1 Tablet(s) PO daily 05/06/2014 05/08/2014 Inactive take probiotic BID while on ABT Levaquin 500 mg tablet RxNorm: 834770 1 Tablet(s) PO daily 05/02/2014 05/05/2014 Inactive take probiotic BID while on ABT diltiazem ER 120 mg capsule,extended release RxNorm: 339306 1 Capsule(s) PO BID patient would like 4 months at a time 04/29/2014 2015 Inactive Vesicare 10 mg tablet RxNorm: 255289 1/2 Tablet(s) PO BID 04/29/2014 05/19/2014 Inactive lisinopril 20 mg tablet RxNorm: 700676 1 Tablet(s) PO BID 03/20/2014 03/14/2015 Inactive diltiazem 90 mg tablet RxNorm: 410211 1/2 TABLET(S) PO QPM 03/04/2014 04/28/2014 Inactive also 180 q am diltiazem ER 120 mg capsule,extended release RxNorm: 071742 1 Capsule(s) PO daily patient would like 4 months at a time 01/29/2014 04/28/2014 Inactive Vesicare 10 mg tablet RxNorm: 726935 1 Tablet(s) PO QHS 01/14/2014 04/28/2014 Inactive Coumadin 2 mg tablet RxNorm: 304599 4mg in AM and 1mg at night Tablet(s) PO daily as directed. 12/25/2013 03/30/2015 Inactive Metanx 3 mg-35 mg-2 mg tablet RxNorm: 1 Tablet(s) PO daily 12/25/2013 11/02/2015 Inactive digoxin 125 mcg tablet RxNorm: 711587 1 Tablet(s) PO daily 12/25/2013 09/28/2014 Inactive pt will be paying palomares (On $4 list) Coumadin 2 mg tablet RxNorm: 693955 7.5 wed 5mg other Tablet(s) PO as directed. 12/03/2013 12/24/2013 Inactive omeprazole 20 mg tablet,delayed release RxNorm: 452761 1 Tablet(s) PO BID 11/27/2013 04/28/2014 Inactive Coumadin 2 mg tablet RxNorm: 121257 5 mg daily Tablet(s) PO as directed. 11/26/2013 12/02/2013 Inactive 5 mg daily Xanax 0.25 mg tablet RxNorm: 289203 1 Tablet(s) PO Q6 PRN 11/11/2013 12/25/2013 Inactive alprazolam 0.25 mg tablet RxNorm: 072357 tablet oral 11/11/2013 03/22/2015 Inactive sucralfate 1 gram tablet RxNorm: 565714 1 Tablet(s) PO AC & HS 11/04/2013 11/03/2013 Inactive sucralfate 1 gram tablet RxNorm: 537907 1 Tablet(s) PO AC & HS 11/04/2013 01/02/2014 Inactive Synthroid 100 mcg tablet RxNorm: 988604 1 Tablet(s) PO daily 10/31/2013 10/25/2014 Inactive Synthroid 100 mcg tablet RxNorm: 949918 1 Tablet(s) PO daily 09/30/2013 10/29/2013 Inactive Vesicare 10 mg tablet RxNorm: 408082 1 Tablet(s) PO QHS 09/30/2013 01/13/2014 Inactive Lotemax 0.5 % eye ointment RxNorm: 6580066 ointment opht 09/06/2013 12/10/2013 Inactive levothyroxine 100 mcg tablet RxNorm: 444521 tablet oral 09/05/2013 11/02/2014 Inactive Synthroid 100 mcg tablet RxNorm: 031116 1 Tablet(s) PO daily 09/05/2013 09/29/2013 Inactive Prolia 60 mg/mL Sub-Q Syringe RxNorm: 568145 1 Milliliter(s) SQ 06/25/2013 11/02/2015 Inactive dicyclomine 20 mg tablet RxNorm: 904338 1 Tablet(s) PO daily 06/24/2013 06/18/2014 Inactive one ac dinner and up to tid prn omeprazole 20 mg tablet,delayed release RxNorm: 316949 1 Tablet(s) PO BID 06/24/2013 11/26/2013 Inactive Cipro 500 mg tablet RxNorm: 673876 1 Tablet(s) PO BID 06/20/2013 06/26/2013 Inactive diltiazem ER 120 mg capsule,extended release RxNorm: 315479 1 Capsule(s) PO daily patient would like 4 months at a time 06/03/2013 01/28/2014 Inactive Coumadin 2 mg tablet RxNorm: 794216 as directed Tablet(s) PO as directed. 05/29/2013 11/25/2013 Inactive 5 mg daily Synthroid 88 mcg tablet RxNorm: 334423 1 Tablet(s) PO daily 04/24/2013 04/23/2013 Inactive Synthroid 88 mcg tablet RxNorm: 489887 1 Tablet(s) PO daily 04/24/2013 07/28/2013 Inactive Premarin 0.625 mg/gram vaginal cream RxNorm: 689252 1 Application VAG 1 applicator per vagina 3 times per week 04/23/2013 04/17/2014 Inactive Influenza Virus Vaccine 0.5 mL RxNorm: IM 04/23/2013 04/23/2013 Inactive digoxin 125 mcg tablet RxNorm: 543558 1 Tablet(s) PO daily 02/20/2013 04/20/2013 Inactive pt will be paying palomares (On $4 list) Digox 125 mcg tablet RxNorm: 3191749 tablet oral 02/13/2013 03/20/2014 Inactive digoxin 125 mcg tablet RxNorm: 710778 1 Tablet(s) PO daily 02/13/2013 02/19/2013 Inactive diltiazem 90 mg tablet RxNorm: 617322 1/2 Tablet(s) PO QPM 02/13/2013 02/07/2014 Inactive also 180 q am Levoxyl 75 mcg tablet RxNorm: 074660 1 Tablet(s) PO 01/16/2013 04/23/2013 Inactive Coumadin 2 mg tablet RxNorm: 841498 6mg daily except 3mg on wed and fri Tablet(s) PO 01/15/2013 05/28/2013 Inactive 5 mg daily Coumadin 2 mg tablet RxNorm: 233752 6mg daily Tablet(s) PO 12/21/2012 01/14/2013 Inactive 5 mg daily silver sulfadiazine 1 % Topical Cream RxNorm: 663694 TOP apply to affected area with each dressing change 12/19/2012 12/25/2013 Inactive cephalexin 500 mg tablet RxNorm: 778689 1 Tablet(s) PO TID 12/11/2012 12/17/2012 Inactive digoxin 125 mcg tablet RxNorm: 457535 1 Tablet(s) PO daily 10/30/2012 02/12/2013 Inactive digoxin 125 mcg tablet RxNorm: 275707 2 tab tue thurs one other days Tablet(s) PO daily 10/23/2012 10/29/2012 Inactive lisinopril 10 mg tablet RxNorm: 257512 1 Tablet(s) PO daily 10/17/2012 08/14/2013 Inactive Cipro 500 mg tablet RxNorm: 118226 1 Tablet(s) PO BID 09/13/2012 09/19/2012 Inactive Coumadin 1 mg tablet RxNorm: 711996 1 Tablet(s) PO daily 09/03/2012 09/02/2012 Inactive Coumadin 1 mg tablet RxNorm: 486683 1 Tablet(s) PO daily 09/03/2012 12/21/2012 Inactive Coumadin 2 mg tablet RxNorm: 504715 Tablet(s) PO 07/25/2012 12/20/2012 Inactive 5 mg daily digoxin 125 mcg tablet RxNorm: 636148 1 Tablet(s) PO daily 06/28/2012 10/22/2012 Inactive Coumadin 2 mg tablet RxNorm: 419652 Tablet(s) PO 06/27/2012 07/24/2012 Inactive 5mg daily except 4mg on monday Coumadin 2 mg tablet RxNorm: 160591 Tablet(s) PO 06/19/2012 06/26/2012 Inactive 5mg e wed thur sat sun4mg mon(has 2mg and 1 mg tab) digoxin 125 mcg tablet RxNorm: 219647 1 Tablet(s) PO daily 05/29/2012 06/27/2012 Inactive Coumadin 2 mg tablet RxNorm: 854432 Tablet(s) PO 05/15/2012 06/18/2012 Inactive 5mg tue thur sat sun4mg mon frid(has 2mg and 1 mg tab) Coumadin 2 mg tablet RxNorm: 557886 Tablet(s) PO 04/25/2012 05/14/2012 Inactive 5mg tue thru sat4mg mond sun(has 2mg and 1 mg tab) Metanx 3 mg-35 mg-2 mg tablet RxNorm: 1 Tablet(s) PO BID 04/18/2012 12/24/2013 Inactive dicyclomine 20 mg tablet RxNorm: 961959 1 Tablet(s) PO 04/18/2012 06/23/2013 Inactive one ac dinner and up to tid prn digoxin 125 mcg tablet RxNorm: 486870 Tablet(s) PO daily except .25 on Tuesdays and 04/09/2012 05/28/2012 Inactive omeprazole 20 mg tablet,delayed release RxNorm: 616608 1 Tablet(s) PO BID 04/09/2012 04/03/2013 Inactive digoxin 125 mcg tablet RxNorm: 365529 1 Tablet(s) PO UD daily except none on Tuesdays and 03/13/2012 04/08/2012 Inactive Premarin 0.625 mg/gram Vaginal Cream RxNorm: 502539 1 Application VAG 1 applicator per vagina 3 times per week 02/20/2012 02/13/2013 Inactive omeprazole 20 mg tablet,delayed release RxNorm: 642113 1 Tablet(s) PO BID 02/13/2012 04/08/2012 Inactive Vesicare 10 mg tablet RxNorm: 196281 1 Tablet(s) PO QHS 02/13/2012 02/06/2013 Inactive Diflucan 150 mg tablet RxNorm: 741165 1 Tablet(s) PO daily 02/13/2012 02/19/2012 Inactive omeprazole 20 mg tablet,delayed release RxNorm: 680603 1 Tablet(s) PO BID 01/06/2012 02/12/2012 Inactive Calcium 600 + D(3) 600 mg (1,500)-200 unit Tab RxNorm: 017234 2 Tablet(s) PO BID 01/06/2012 08/31/2015 Inactive diltiazem 90 mg tablet RxNorm: 807294 1/2 Tablet(s) PO QPM 12/26/2011 02/12/2013 Inactive also 180 q am diltiazem ER 180 mg Cap RxNorm: 937959 1 Capsule(s) PO QAM 12/26/2011 04/08/2012 Inactive 45mg q hs Flagyl 500 mg Tab RxNorm: 633471 1 Tablet(s) PO BID 12/14/2011 12/20/2011 Inactive dicyclomine 10 mg Cap RxNorm: 802462 1 Capsule(s) PO AC & HS 12/01/2011 12/25/2011 Inactive Levaquin 500 mg Tab RxNorm: 166575 1 Tablet(s) PO daily 11/23/2011 11/29/2011 Inactive Rocephin 500 mg Solution for Injection RxNorm: 2581187 Inj 11/23/2011 11/23/2011 Inactive acyclovir 400 mg Tab RxNorm: 591882 1 Tablet(s) PO QID 11/10/2011 11/19/2011 Inactive acyclovir 400 mg Tab RxNorm: 648462 1 Tablet(s) PO QID 11/10/2011 11/09/2011 Inactive lisinopril 20 mg Tab RxNorm: 763149 1 Tablet(s) PO daily 10/03/2011 11/27/2011 Inactive lisinopril 20 mg Tab RxNorm: 894667 1 Tablet(s) PO daily 08/08/2011 10/02/2011 Inactive Reclast 5 mg/100 mL IV RxNorm: 608044 Milliliter(s) IV Yearly 06/08/2011 01/16/2013 Inactive Dr. Hansen manages Rocephin 500 mg Solution for Injection RxNorm: 3993155 1 Milliliter(s) Inj 03/04/2011 08/08/2011 Inactive Ceftin 500 mg Tab RxNorm: 818387 1 Tablet(s) PO BID 03/04/2011 08/08/2011 Inactive Vitamin D3 1,000 unit tablet RxNorm: 126544 2 Tablet(s) PO daily No Start Date Active Stool Softener 100 mg tablet RxNorm: 3909499 2 Tablet(s) PO QHS No Start Date Active Beano tablet RxNorm: 2-3 Tablet(s) PO as needed No Start Date Active Probiotic Pearls 15 mg (1 billion cell) capsule,delayed release RxNorm: 1 Capsule(s) PO daily No Start Date Active Lipitor 10 mg tablet RxNorm: 066844 1 Tablet(s) PO daily No Start Date Active Miralax 17 gram oral powder packet RxNorm: 397392 1/2 packet PO QHS No Start Date Active multivitamin Tab RxNorm: 1 Tablet(s) PO daily No Start Date Active Tylenol Extra Strength 500 mg tablet RxNorm: 627402 2 Tablet(s) PO as needed No Start Date Active Combigan 0.2 %-0.5 % eye drops RxNorm: 387201 1 Drop(s) OPH BID No Start Date Active 1 drop twice daily left eye Lexapro 5 mg tablet RxNorm: 770078 1 Tablet(s) PO daily No Start Date Active Tatiana Allergy 180 mg tablet RxNorm: 302146 1 Tablet(s) PO daily No Start Date Active Lotemax 0.5 % eye drops,suspension RxNorm: 581461 1 Drop(s) OPH right eye BID No Start Date Active Levoxyl 50 mcg tablet RxNorm: 187554 1 Tablet(s) PO daily No Start Date 01/15/2013 Inactive lisinopril-hydrochlorothiazide 20 mg-25 mg Tab RxNorm: 489347 1 Tablet(s) PO daily No Start Date 08/07/2011 Inactive Metanx 3 mg-35 mg-2 mg tablet RxNorm: 1 Tablet(s) PO daily No Start Date 04/17/2012 Inactive diltiazem CD 120 mg capsule,extended release 24 hr RxNorm: 953986 1 Capsule(s) PO daily No Start Date 09/28/2015 Inactive lisinopril 20 mg tablet RxNorm: 268218 Tablet(s) PO No Start Date Active Lumigan 0.01 % Eye Drops RxNorm: 7882651 1 Drop(s) OPH daily Left eye No Start Date 12/10/2013 Inactive prednisolone acetate 1 % Eye Drops, Susp RxNorm: 7869208 1 Drop(s) OPH BID 1 drop right eye am and hs No Start Date 11/02/2015 Inactive Eliquis 5 mg tablet RxNorm: 1371839 1 Tablet(s) PO BID No Start Date 06/08/2016 Inactive potassium gluconate (bulk) Misc RxNorm: Miscellaneous No Start Date 12/25/2011 Inactive Calcium 600 + D(3) 600 mg (1,500)-200 unit Tab RxNorm: 413888 3 Tablet(s) PO daily No Start Date 2012 Inactive Zyrtec 10 mg tablet RxNorm: 8778293 1 Tablet(s) PO daily No Start Date 08/02/2016 Inactive Synthroid 100 mcg tablet RxNorm: 192851 1 Tablet(s) PO daily No Start Date 09/04/2013 Inactive metoprolol succinate ER 50 mg tablet,extended release 24 hr RxNorm: 450910 1 Tablet(s) PO daily No Start Date 03/23/2016 Inactive Carafate 100 mg/mL oral suspension RxNorm: 449645 2 Teaspoon(s) PO as needed with reflux symptoms No Start Date 06/03/2018 Inactive Metanx 3 mg-35 mg-2 mg tablet RxNorm: 1 Tablet(s) PO daily 2pm No Start Date 11/02/2015 Inactive Lexapro 5 mg tablet RxNorm: 871285 1 Tablet(s) PO daily No Start Date 08/18/2015 Inactive Iron (dried) oral RxNorm: 02715 oral No Start Date 11/02/2015 Inactive timolol 0.5 % Eye Drops RxNorm: 494998 1 Drop(s) OPH daily left eye No Start Date 12/18/2013 Inactive multivitamin Cap RxNorm: 1 Capsule(s) PO daily No Start Date 12/25/2011 Inactive dicyclomine 10 mg Cap RxNorm: 016407 2 Capsule(s) PO daily No Start Date 11/30/2011 Inactive silver sulfadiazine 1 % Topical Cream RxNorm: 721087 TOP apply to affected area with each dressing change No Start Date 12/18/2012 Inactive magnesium oxide 400 mg Tab RxNorm: 827836 1 Tablet(s) PO daily No Start Date 11/02/2015 Inactive Pradaxa 75 mg Cap RxNorm: 5691192 1 Capsule(s) PO BID No Start Date 04/09/2012 Inactive magnesium oxide 400 mg Tab RxNorm: 963011 2 Tablet(s) PO daily magnesium plus zinc No Start Date 12/25/2011 Inactive biotin 1000 mg RxNorm: 1 PO daily No Start Date 12/25/2011 Inactive Synthroid 50 mcg Tab RxNorm: 857308 Tablet(s) PO No Start Date 12/25/2011 Inactive diltiazem ER 180 mg Cap RxNorm: 971466 1 Capsule(s) PO daily No Start Date 12/25/2011 Inactive 1 D 3 1000 iu Oral RxNorm: Oral No Start Date 12/25/2011 Inactive Coumadin 2 mg tablet RxNorm: 911029 Tablet(s) PO No Start Date 04/24/2012 Inactive 5mg tue [id number] mon sat sun(has 2mg and 1 mg tab) dicyclomine 20 mg tablet RxNorm: 845941 Tablet(s) PO No Start Date 04/17/2012 Inactive one ac dinner and up to tid prn lactobacillus acidophilus tablet RxNorm: 1 Tablet(s) PO daily No Start Date 11/03/2015 Inactive Eliquis 2.5 mg tablet RxNorm: 8386988 1 Tablet(s) PO BID No Start Date 07/25/2017 Inactive Levoxyl 75 mcg Tab RxNorm: 629865 1 Tablet(s) PO daily No Start Date 10/02/2011 Inactive digoxin 125 mcg tablet RxNorm: 164813 1 Tablet(s) PO daily No Start Date 03/12/2012 Inactive pantoprazole 40 mg tablet,delayed release RxNorm: 369468 1 Tablet(s) PO BID No Start Date 01/04/2016 Inactive cyclobenzaprine 5 mg tablet RxNorm: 388666 1/2 Tablet(s) PO Q8 PRN No Start Date 10/24/2016 Inactive diltiazem 90 mg Tab RxNorm: 131722 1/2 Tablet(s) PO QPM No Start Date 12/25/2011 Inactive Mirapex 1 mg Tab RxNorm: 274273 1 Tablet(s) PO QHS No Start Date 12/25/2011 Inactive Xanax 0.25 mg tablet RxNorm: 147562 1 Tablet(s) PO Q6 PRN No Start Date 11/10/2013 Inactive Premarin 0.625 mg/gram Vaginal Cream RxNorm: 108762 1 Application VAG 1 applicator per vagina 3 times per week No Start Date 02/19/2012 Inactive Synthroid 75 mcg Tab RxNorm: 280549 1 Tablet(s) PO daily No Start Date 04/17/2012 Inactive lisinopril 40 mg Tab RxNorm: 805456 1 Tablet(s) PO daily No Start Date 12/25/2011 Inactive Glucosamine Chondroitin Complex Advanced [id number]-1.65mg Tab RxNorm: 2 Tablet(s) PO daily No Start Date 08/08/2011 Inactive famotidine 20 mg tablet RxNorm: 356964 1 Tablet(s) PO QAM No Start Date 11/02/2015 Inactive cranberry extract 250 mg Tab RxNorm: 295157 2 Tablet(s) PO daily No Start Date 08/08/2011 Inactive Vitamin D3 1,000 unit capsule RxNorm: 320476 1 Capsule(s) PO daily No Start Date 08/31/2015 Inactive aspirin 81 mg Tab, Delayed Release RxNorm: 373787 1 Tablet(s) PO daily No Start Date 08/31/2015 Inactive diltiazem ER 120 mg capsule,extended release RxNorm: 390122 1 Capsule(s) PO daily patient would like 4 months at a time No Start Date 06/02/2013 Inactive omeprazole 20 mg Tab, Delayed Release RxNorm: 658212 2 Tablet(s) PO QHS No Start Date 2012 Inactive lisinopril 10 mg tablet RxNorm: 852521 1/2 Tablet(s) PO daily No Start Date 10/16/2012 Inactive Pred Forte 1 % Eye Drops RxNorm: 347322 1 Drop(s) OPH daily right eye No Start Date 12/25/2013 Inactive calcium carbonate 400 mg Chewable Tab RxNorm: 655286 1 Tablet(s) PO daily No Start Date 08/08/2011 Inactive Vesicare 10 mg tablet RxNorm: 703928 1 Tablet(s) PO QHS No Start Date 02/12/2012 Inactive Symbicort 160 mcg-4.5 mcg/actuation HFA aerosol inhaler RxNorm: 1870799 2 Puff(s) INH BID No Start Date 12/13/2017 Inactive potassium 99 mg tablet RxNorm: 1 Tablet(s) PO QPM No Start Date 12/25/2013 Inactive timolol 0.25 % Eye Drops RxNorm: 414865 1 Drop(s) OPH daily Left eye No Start Date 04/17/2012 Inactive diltiazem ER 90 mg capsule,extended release 12 hr RxNorm: 403489 1/2 Capsule(s) PO QPM No Start Date 04/28/2014 Inactive cyclobenzaprine 5 mg Tab RxNorm: 197526 1/2-1 Tablet(s) PO Q8 PRN No Start Date 12/25/2011 Inactive 1/2 - 1 tab q 8hrs prn muscle spasms Medication Administered Medication Codes Instructions Start Date Status Influenza Virus Vaccine 0.5 mL RxNorm: 04/23/2013 No longer Active Rocephin 500 mg Solution for Injection RxNorm: 9756461 11/23/2011 No longer Active Immunizations Vaccine Codes [...] 04/18/2012 completed Assessments Condition Codes Effective Dates Acute laryngopharyngitis ICD-10: J06.0 ICD-9: 465.0 11/30/2018 Postmenopausal atrophic vaginitis ICD-10: N95.2 ICD-9: 627.3 10/31/2018 Atrophy of thyroid (acquired) ICD-10: E03.4 ICD-9: 244.8 10/31/2018 Essential (primary) hypertension ICD-10: I10 ICD-9: 401.1 10/31/2018 Chronic atrial fibrillation ICD-10: I48.2 ICD-9: 427.31 10/31/2018 Pain in left hand ICD-10: M79.642 ICD-9: 729.5 10/09/2018 Raynaud's syndrome without gangrene ICD-10: I73.00 ICD-9: 443.0 10/09/2018 Pain in right hand ICD-10: M79.641 ICD-9: 729.5 10/09/2018 Other allergic rhinitis ICD-10: J30.89 ICD-9: 477.8 09/12/2018 Cough ICD-10: R05 ICD-9: 786.2 09/12/2018 Pain in right toe(s) ICD-10: M79.674 ICD-9: 729.5 08/14/2018 Sebaceous cyst ICD-10: L72.3 ICD-9: 706.2 07/26/2018 Encounter for screening mammogram for malignant neoplasm of breast ICD-10: Z12.31 ICD-9: V76.12 06/08/2018 Gastro-esophageal reflux disease without esophagitis ICD-10: K21.9 ICD-9: 530.81 06/04/2018 Essential (primary) hypertension ICD-10: I10 ICD-9: 401.9 01/31/2018 Other chcf (current) drug therapy ICD-10: Z79.899 ICD-9: V58.83 [...] hemorrhoids ICD-10: K64.0 ICD-9: 455.6 03/24/2016 Other vermin exterminator (current) drug therapy ICD-10: Z79.899 ICD-9: V58.69 [...] Visit Reason For Visit Effective Dates Notes cough 11/30/2018 myalgias 10/31/2018 blood pressure followup [...] Code Result Date C RAP A SC 5378188 Strep A Negative 11/30/2018 Electrolytes Ord62 NA 132 mEq/L 09/25/2018 Electrolytes Ord62 K 4.1 mEq/L 09/25/2018 Electrolytes Ord62 CL 98 mEq/L 09/25/2018 Electrolytes Ord62 CO2 26.0 mEq/L 09/25/2018 Electrolytes Ord62 ANION GAP 12 09/25/2018 Comp Metabolic Blk834 NA 130 mEq/L 09/12/2018 Comp Metabolic Gdx360 K 4.2 mEq/L 09/12/2018 Comp Metabolic Vhr972 CL 98 mEq/L 09/12/2018 Comp Metabolic Zzf772 CO2 23.0 mEq/L 09/12/2018 Comp Metabolic Ikl082 ANION GAP 13 09/12/2018 Comp Metabolic Lmx649 GLUCOSE 129 mg/dL 09/12/2018 Comp Metabolic Mlb622 Creat 1.0 mg/dL 09/12/2018 Comp Metabolic Yfd022 eGFR 58 ml/min/1.73m2 09/12/2018 Comp Metabolic Puy558 BUN 28 mg/dL 09/12/2018 Comp Metabolic Uuf222 B/C Ratio 28.9 Ratio 09/12/2018 Comp Metabolic Bcd657 CALCIUM 9.1 mg/dL 09/12/2018 Comp Metabolic Wwm205 ALK PHOS 59 U/L 09/12/2018 Comp Metabolic Pmm813 AST(SGOT) 21 U/L 09/12/2018 Comp Metabolic Tjj988 ALT(SGPT) 19 U/L 09/12/2018 Comp Metabolic Gia578 BILI T 0.8 mg/dL 09/12/2018 Comp Metabolic Zne767 ALBUMIN 3.9 g/dL 09/12/2018 Comp Metabolic Xha109 TPRO 6.5 g/dL 09/12/2018 Comp Metabolic Hat815 GLOB 2.6 g/dL 09/12/2018 Comp Metabolic Tcw002 A/G Ratio 1.5 Ratio 09/12/2018 Comp Metabolic Mkf804 Osmo 268 mOsmo 09/12/2018 Tsh Ord6 TSH (3rd IS) 12.84 uIU/mL 09/12/2018 Influenza A+B Tds531 Influ A+B Negative 09/12/2018 Cbc With Differential [...] 12.3 % 09/12/2018 Cbc With Differential Ord2 [place]% 12.0 % 09/12/2018 Cbc With Differential Ord2 [...] 0.85 K/ul 09/12/2018 Cbc With Differential Ord2 [place] ABS# 0.8 K/ul 09/12/2018 Cbc With Differential Ord2 Eos ABS# 0.1 K/ul 09/12/2018 Cbc With Differential Ord2 Baso ABS# 0.0 K/ul 09/12/2018 Free T4 Wzm394 FREE T4 1.10 ng/dL 09/12/2018 Free T4 Mwa711 FREE T4 1.19 ng/dL 05/08/2018 Digoxin Ord9 DIGOXIN 0.6 NG/ML 05/08/2018 Tsh Ord6 TSH (3rd IS) 10.58 uIU/mL 05/08/2018 Tsh Ord6 TSH (3rd IS) 1.07 uIU/mL 01/31/2018 Free T4 Ogp243 FREE T4 1.63 ng/dL 01/31/2018 Digoxin Ord9 DIGOXIN 0.8 NG/ML 01/31/2018 C RAP A SC [id number] Strep A Negative 11/21/2016 Thyroid Antibodies 429367 THYROGLOBULIN ANTIBODY . 11/04/2016 Thyroid Antibodies 243065 THYROGLOBULIN ANTIBODY 919 IU/mL 11/04/2016 Thyroid Antibodies 913892 THYROID PEROXIDASE (TPO) AB . 11/04/2016 Thyroid Antibodies 276906 THYROID PEROXIDASE (TPO) AB 10 IU/mL 11/04/2016 Total T3 Ord42 TT3 0.64 ng/ml 11/03/2016 Free T4 Cti266 FREE T4 1.39 ng/dL 11/02/2016 Tsh Ord6 [...] Differential Ord2 RDW 13.8 % 05/26/2015 Pt Ydx3001 PT 25.0 seconds 05/26/2015 Pt Syb4921 INR 2.4 05/26/2015 Pt Qgn7422 Low Intensity - 1.5-2.0 05/26/2015 Pt Oyh2808 Mod intensity - 2.0-3.0 05/26/2015 Pt Ktj5531 Hi intensity - 3.0-4.0 05/26/2015 Uric Acid [...] Digoxin Ord9 DIGOXIN 0.6 NG/ML 05/06/2015 Pt Cox4260 PT 23.3 seconds 05/06/2015 Pt Ddu6155 INR 2.1 05/06/2015 Pt Piy9817 Low Intensity - 1.5-2.0 05/06/2015 Pt Hfa6512 Mod intensity - 2.0-3.0 05/06/2015 Pt Mwo5038 Hi intensity - 3.0-4.0 05/06/2015 Free T4 Mdh107 FREE T4 1.65 ng/dL 05/06/2015 Comp Metabolic Szf292 NA 132 mEq/L 05/06/2015 Comp Metabolic Cxu031 K 4.1 mEq/L 05/06/2015 Comp Metabolic Fep771 CL 98 mEq/L 05/06/2015 Comp Metabolic Luf647 CO2 27.0 mEq/L 05/06/2015 Comp Metabolic Xqc247 ANION GAP 11 05/06/2015 Comp Metabolic Reu402 GLUCOSE 71 mg/dL 05/06/2015 Comp Metabolic Ftd751 Creat 0.7 mg/dL 05/06/2015 Comp Metabolic Dho684 eGFR 82 ml/min/1.73m2 05/06/2015 Comp Metabolic Xdg494 BUN 16 mg/dL 05/06/2015 Comp Metabolic Uyp595 B/C Ratio 22.2 Ratio 05/06/2015 Comp Metabolic Rlp930 CALCIUM 9.4 mg/dL 05/06/2015 Comp Metabolic Xxw688 ALK PHOS 60 U/L 05/06/2015 Comp Metabolic Hvj313 AST(SGOT) 22 U/L 05/06/2015 Comp Metabolic Gdm494 ALT(SGPT) 24 U/L 05/06/2015 Comp Metabolic Sdc585 BILI T 0.8 mg/dL 05/06/2015 Comp Metabolic Kdb892 ALBUMIN 4.3 g/dL 05/06/2015 Comp Metabolic Jwj923 TPRO 7.6 g/dL 05/06/2015 Comp Metabolic Cah344 GLOB 3.3 g/dL 05/06/2015 Comp Metabolic Xqd686 A/G Ratio 1.3 Ratio 05/06/2015 Comp Metabolic Dka609 Osmo 264 mOsmo 05/06/2015 DIGOXIN 8193739 DIGOXIN 1.1 NG/ML 05/15/2013 PT/MC 1629515 PRO TIME 21.7 SEC 05/15/2013 PT/MC 3782984 INR MCMC 2.0 05/15/2013 CHEM 14 2654157 AST 24 U/L 04/23/2013 CHEM 14 1737213 ALT 31 IU/L 04/23/2013 CHEM 14 8144235 BUN 13 MG/DL 04/23/2013 CHEM 14 7975579 ALBUMIN 4.1 GM/DL 04/23/2013 CHEM 14 8153963 CHLORIDE 103 MMOL/L 04/23/2013 CHEM 14 7818052 BILI TOT 0.5 MG/DL 04/23/2013 CHEM 14 7567571 ALK PHOS 44 U/L 04/23/2013 CHEM 14 2129442 SODIUM 137 MMOL/L 04/23/2013 CHEM 14 0530236 CREATININE 0.61 MG/DL 04/23/2013 CHEM 14 4967929 CALCIUM 9.5 MG/DL 04/23/2013 CHEM 14 8481440 POTASSIUM 4.0 MMOL/L 04/23/2013 CHEM 14 8125032 PROT TOT 6.6 GM/DL 04/23/2013 CHEM 14 7368903 GLUCOSE 99 MG/DL 04/23/2013 CHEM 14 6534642 BICARB 27 MMOL/L 04/23/2013 CHEM 14 1835866 ANION GAP 7 MEQ/L 04/23/2013 GFR CALC 1734063 GFR AA >60 ML/MIN 04/23/2013 GFR CALC 6470538 GFR NON-AA >60 ML/MIN 04/23/2013 TSH 4633490 TSH 4.204 uIU/ML 04/23/2013 CBC 2904358 WBC 6.7 10e9/L 04/23/2013 CBC 9246058 RBC 4.19 10e12/L 04/23/2013 CBC 3952680 HGB 13.2 g/dL 04/23/2013 CBC 4198394 HCT DET 39.2 % 04/23/2013 CBC 6538339 MCV 93.6 fL 04/23/2013 CBC 3547682 MCH 31.5 pg 04/23/2013 CBC 9196012 MCHC 33.7 g/dL 04/23/2013 CBC 4465309 PLT 202 10e9/L 04/23/2013 CBC 1833469 MPV 11.4 fL 04/23/2013 CBC 0024231 YANIRA % 70.5 % 04/23/2013 CBC 5493845 LY % 19.6 % 04/23/2013 CBC 3782999 MON % 8.2 % 04/23/2013 CBC 1393299 EOS % 1.6 % 04/23/2013 CBC 7027432 BASO % 0.1 % 04/23/2013 CBC 4126724 RDW 13.7 % 04/23/2013 CBC 5879706 ABS YANIRA 4.72 10e9/L 04/23/2013 CBC 8451362 ABS LYMPH 1.31 10e9/L 04/23/2013 CBC 0616103 ABS MONO 0.55 10e9/L 04/23/2013 CBC 3561378 ABS EOS 0.11 10e9/L 04/23/2013 CBC 0273065 ABS BASO 0.01 10e9/L 04/23/2013 CBC 9253433 RDW-SD 45.7 fL 04/23/2013 PT/MC 5873014 PRO TIME 13.4 SEC 12/17/2012 PT/MC 1991176 INR MCMC 1.0 12/17/2012 PT/MC 2586092 PRO TIME 16.6 SEC 12/14/2012 PT/MC 4509705 INR MCMC 1.4 12/14/2012 PT/MC 7506704 PRO TIME 27.2 SEC 12/11/2012 PT/MC 5060714 INR MCMC 2.6 12/11/2012 DIGOXIN 3149509 DIGOXIN 2.1 NG/ML 03/08/2012 GFR CALC 3133752 GFR AA >60 ML/MIN 03/08/2012 GFR CALC 8965457 GFR NON-AA >60 ML/MIN 03/08/2012 CHEM 14 20280112 AST 16 U/L 03/08/2012 CHEM 14 20280112 ALT 14 IU/L 03/08/2012 CHEM 14 20280112 BUN 10 MG/DL 03/08/2012 CHEM 14 20280112 ALBUMIN 4.2 GM/DL 03/08/2012 CHEM 14 7647817 CHLORIDE 100 MMOL/L 03/08/2012 CHEM 14 20280112 BILI TOT 0.5 MG/DL 03/08/2012 CHEM 14 20280112 ALK PHOS 59 U/L 03/08/2012 CHEM 14 20280112 SODIUM 136 MMOL/L 03/08/2012 CHEM 14 20280112 CREATININE 0.65 MG/DL 03/08/2012 CHEM 14 9973297 CALCIUM 9.4 MG/DL 03/08/2012 CHEM 14 20280112 POTASSIUM 3.9 MMOL/L 03/08/2012 CHEM 14 20280112 PROT TOT 6.7 GM/DL 03/08/2012 CHEM 14 8595517 GLUCOSE 90 MG/DL 03/08/2012 CHEM 14 5016164 BICARB 30 MMOL/L 03/08/2012 CHEM 14 7282607 ANION GAP 6 MEQ/L 03/08/2012 CHEM 14 3296829 AST 16 U/L 11/23/2011 CHEM 14 1267725 ALT 14 IU/L 11/23/2011 CHEM 14 2710583 BUN 11 MG/DL 11/23/2011 CHEM 14 6901270 ALBUMIN 4.1 GM/DL 11/23/2011 CHEM 14 2610577 CHLORIDE 100 MMOL/L 11/23/2011 CHEM 14 3135195 BILI TOT 0.5 MG/DL 11/23/2011 CHEM 14 4532351 ALK PHOS 50 U/L 11/23/2011 CHEM 14 3272333 SODIUM 135 MMOL/L 11/23/2011 CHEM 14 8267566 CREATININE 0.57 MG/DL 11/23/2011 CHEM 14 8782073 CALCIUM 9.1 MG/DL 11/23/2011 CHEM 14 8023958 POTASSIUM 4.5 MMOL/L 11/23/2011 CHEM 14 7487881 PROT TOT 6.5 GM/DL 11/23/2011 CHEM 14 1137005 GLUCOSE 89 MG/DL 11/23/2011 CHEM 14 1555480 BICARB 28 MMOL/L 11/23/2011 CHEM 14 4562535 ANION GAP 7 MEQ/L 11/23/2011 GFR CALC 4734179 GFR AA >60 ML/MIN 11/23/2011 GFR CALC 9847938 GFR NON-AA >60 ML/MIN 11/23/2011 CBC 4325390 WBC 5.1 10e9/L 11/23/2011 CBC 1464009 RBC 4.06 10e12/L 11/23/2011 CBC 8553246 HGB 12.5 g/dL 11/23/2011 CBC 9354907 HCT DET 37.3 % 11/23/2011 CBC 0846428 MCV 91.9 fL 11/23/2011 CBC 6749133 MCH 30.8 pg 11/23/2011 CBC 0651719 MCHC 33.5 g/dL 11/23/2011 CBC 0655620 PLT 222 10e9/L 11/23/2011 CBC 8819365 MPV 10.8 fL 11/23/2011 CBC 8211567 YANIRA % 64.2 % 11/23/2011 CBC 6824118 LY % 22.3 % 11/23/2011 CBC 6158439 MON % 11.3 % 11/23/2011 CBC 8199939 EOS % 1.8 % 11/23/2011 CBC 1284930 BASO % 0.4 % 11/23/2011 CBC 5361827 RDW 13.6 % 11/23/2011 CBC 5755890 ABS YANIRA 3.27 10e9/L 11/23/2011 CBC 4229044 ABS LYMPH 1.14 10e9/L 11/23/2011 CBC 0593407 ABS MONO 0.58 10e9/L 11/23/2011 CBC 5166637 ABS EOS 0.09 10e9/L 11/23/2011 CBC 6463846 ABS BASO 0.02 10e9/L 11/23/2011 CBC 4218396 RDW-SD 44.5 fL 11/23/2011 UA 87931 Specific [place] 1.005 03/04/2011 UA 10956 PH 6 03/04/2011 UA 26750 GLUCOSE N 03/04/2011 UA 56997 Protein N 03/04/2011 UA 95062 Blood ++ 03/04/2011 UA 73305 Bilirubin N 03/04/2011 UA 75124 Ketones N 03/04/2011 UA 50165 Urobilinogen N 03/04/2011 UA 03739 Nitrite N 03/04/2011 UA 44391 Leukocytes N 03/04/2011 URINALYSIS NONAUTO W/O SCOPE 50810 Specific [place] 1.010 DateTime(Free Text in Octima) URINALYSIS NONAUTO W/O SCOPE 11814 PH 6.5 DateTime(Free Text in Octima) URINALYSIS NONAUTO W/O SCOPE 74599 GLUCOSE neg DateTime(Free Text in Apr[employer]) URINALYSIS NONAUTO W/O SCOPE 99165 Protein neg DateTime(Free Text in Apr[employer]) URINALYSIS NONAUTO W/O SCOPE 03581 Blood 3+ DateTime(Free Text in Aprima) URINALYSIS NONAUTO W/O SCOPE 81493 Bilirubin neg DateTime(Free Text in Apr[employer]) URINALYSIS NONAUTO W/O SCOPE 43512 Ketones neg DateTime(Free Text in Aprima) URINALYSIS NONAUTO W/O SCOPE 40557 Urobilinogen neg DateTime(Free Text in Aprima) URINALYSIS NONAUTO W/O SCOPE 46491 Nitrite neg DateTime(Free Text in Aprima) URINALYSIS NONAUTO W/O SCOPE 20376 Leukocytes neg DateTime(Free Text in Aprima) URINALYSIS NONAUTO W/O SCOPE 10835 Specific [place] 1.010 DateTime(Free Text in Aprima) URINALYSIS NONAUTO W/O SCOPE 64426 PH 5 DateTime(Free Text in Aprima) URINALYSIS NONAUTO W/O SCOPE 47295 GLUCOSE neg DateTime(Free Text in Aprima) URINALYSIS NONAUTO W/O SCOPE 20446 Protein neg DateTime(Free Text in Aprima) URINALYSIS NONAUTO W/O SCOPE 01692 Blood 3+ DateTime(Free Text in Aprima) URINALYSIS NONAUTO W/O SCOPE 10544 Bilirubin neg DateTime(Free Text in Aprima) URINALYSIS NONAUTO W/O SCOPE 88709 Ketones neg DateTime(Free Text in Aprima) URINALYSIS NONAUTO W/O SCOPE 43300 Urobilinogen neg DateTime(Free Text in Aprima) URINALYSIS NONAUTO W/O SCOPE 81369 Nitrite neg DateTime(Free Text in Aprima) URINALYSIS NONAUTO W/O SCOPE 11721 Leukocytes neg DateTime(Free Text in Aprima) URINALYSIS NONAUTO W/O SCOPE 51105 Specific [place] 1.005 DateTime(Free Text in Aprima) URINALYSIS NONAUTO W/O SCOPE 20055 PH 8.5 DateTime(Free Text in Aprima) URINALYSIS NONAUTO W/O SCOPE 56333 GLUCOSE neg DateTime(Free Text in Aprima) URINALYSIS NONAUTO W/O SCOPE 60076 Protein neg DateTime(Free Text in Aprima) URINALYSIS NONAUTO W/O SCOPE 65835 Blood 1+ DateTime(Free Text in Aprima) URINALYSIS NONAUTO W/O SCOPE 74137 Bilirubin neg DateTime(Free Text in Apr[employer]) URINALYSIS NONAUTO W/O SCOPE 60151 Ketones neg DateTime(Free Text in Aprima) URINALYSIS NONAUTO W/O SCOPE 74307 Urobilinogen neg DateTime(Free Text in Aprima) URINALYSIS NONAUTO W/O SCOPE 15866 Nitrite neg DateTime(Free Text in Aprima) URINALYSIS NONAUTO W/O SCOPE 97752 Leukocytes neg DateTime(Free Text in Aprima) URINALYSIS NONAUTO W/O SCOPE 69100 Specific [place] 1.005 DateTime(Free Text in Aprima) URINALYSIS NONAUTO W/O SCOPE 69239 PH 7 DateTime(Free Text in Aprima) URINALYSIS NONAUTO W/O SCOPE 80947 GLUCOSE neg DateTime(Free Text in Aprima) URINALYSIS NONAUTO W/O SCOPE 00493 Protein neg DateTime(Free Text in Aprima) URINALYSIS NONAUTO W/O SCOPE 85279 Blood large DateTime(Free Text in Aprima) URINALYSIS NONAUTO W/O SCOPE 17943 Bilirubin neg DateTime(Free Text in Aprima) URINALYSIS NONAUTO W/O SCOPE 36110 Ketones neg DateTime(Free Text in Aprima) URINALYSIS NONAUTO W/O SCOPE 52006 Urobilinogen 0.2 DateTime(Free Text in Aprima) URINALYSIS NONAUTO W/O SCOPE 77134 Nitrite neg DateTime(Free Text in Aprima) URINALYSIS NONAUTO W/O SCOPE 52785 Leukocytes neg DateTime(Free Text in Aprima) URINALYSIS NONAUTO W/O SCOPE 39380 Specific [place] 1.005 DateTime(Free Text in Aprima) URINALYSIS NONAUTO W/O SCOPE 68586 PH 7.5 DateTime(Free Text in Aprima) URINALYSIS NONAUTO W/O SCOPE 82910 GLUCOSE DateTime(Free Text in Aprima) URINALYSIS NONAUTO W/O SCOPE 05868 Protein trace DateTime(Free Text in Aprima) URINALYSIS NONAUTO W/O SCOPE 63156 Blood 4+ DateTime(Free Text in Apr[employer]) URINALYSIS NONAUTO W/O SCOPE 51295 Bilirubin DateTime(Free Text in Apr[employer]) URINALYSIS NONAUTO W/O SCOPE 87300 Ketones DateTime(Free Text in Aprima) URINALYSIS NONAUTO W/O SCOPE 05624 Urobilinogen DateTime(Free Text in Aprima) URINALYSIS NONAUTO W/O SCOPE 77251 Nitrite DateTime(Free Text in Apr[employer]) URINALYSIS NONAUTO W/O SCOPE 58770 Leukocytes trace DateTime(Free Text in Aprima) Review of Systems System Result Effective Dates Constitutional recent illness 11/30/2018 Constitutional No anorexia [...] Effective Dates Notes Full Exam - General 1994 Constitutional general [...] scar 10/09/2018 None Full Exam - General 1994 Eyes pupils and irises Pupil: round 10/09/2018 [...] FLU VACC PRSV FREE INC ANTIG CPT-4: 46757 03/27/2017 PPPS, SUBSEQ VISIT CPT- 4: G0439 01/23/2017 URINALYSIS NONAUTO W/O SCOPE CPT-4: 16608 05/17/2016 ADMIN INFLUENZA VIRUS VAC CPT-4: G0008 03/24/2016 FLU VACC PRSV FREE INC ANTIG CPT-4: 64715 03/24/2016 ADMIN PNEUMOCOCCAL VACCINE SNOMED CT: 04433281 CPT-4: G0009 05/13/2015 PNEUMOCOCCAL VACC [address]: 62437304 CPT-4: 54842 05/13/2015 Pneumococcal Polysaccharide Vaccine, 23-Valent, Ad Assigned to/Mela Bledsoe CPT-4: [id number] 07/11/2014 ADMIN PNEUMOCOCCAL VACCINE SNOMED CT: 74728415 CPT-4: G0009 07/11/2014 URINALYSIS NONAUTO W/O SCOPE CPT-4: 31734 05/14/2014 URINALYSIS NONAUTO W/O SCOPE CPT-4: 64172 05/06/2014 URINALYSIS NONAUTO W/O SCOPE CPT-4: 76059 04/29/2014 ADMIN INFLUENZA VIRUS VAC CPT-4: G0008 03/20/2014 FLU VAC NO PRSV 4 SCOTT 3 YRS+ Assigned to/Mlea Bledsoe CPT-4: [id number] 03/20/2014 URINALYSIS NONAUTO W/O SCOPE CPT-4: 16036 07/29/2013 URINALYSIS NONAUTO W/O SCOPE CPT-4: 93519 07/01/2013 URINALYSIS NONAUTO W/O SCOPE CPT-4: 79446 06/20/2013 ROUTINE VENIPUNCTURE CPT- 4: 88085 05/15/2013 ROUTINE VENIPUNCTURE CPT- 4: 07924 04/23/2013 ADMIN INFLUENZA VIRUS VAC CPT-4: G0008 04/23/2013 FLULAVAL VACC, 3 YRS & >, IM CPT-4: Q2036 04/23/2013 ROUTINE VENIPUNCTURE CPT- 4: 49911 12/17/2012 ROUTINE VENIPUNCTURE CPT- 4: 37162 12/14/2012 ROUTINE VENIPUNCTURE CPT- 4: 16874 12/11/2012 PRESCRIP TRANSMIT VIA ERX SY CPT-4: G8553 12/11/2012 PRESCRIP TRANSMIT VIA ERX SY CPT-4: G8553 10/30/2012 URINALYSIS NONAUTO W/O SCOPE CPT-4: 25202 09/13/2012 ADMIN INFLUENZA VIRUS VAC CPT-4: G0008 04/18/2012 FLULAVAL VACC, 3 YRS & >, IM CPT-4: Q2036 04/18/2012 URINALYSIS NONAUTO W/O SCOPE CPT-4: 82885 03/13/2012 ROUTINE VENIPUNCTURE CPT- 4: 83741 03/08/2012 URINALYSIS NONAUTO W/O SCOPE CPT-4: 34705 02/13/2012 PRESCRIP TRANSMIT VIA ERX SY CPT-4: G8553 02/13/2012 ROCEPHIN, PER 250 MG CPT- 4: J0696 11/23/2011 ROUTINE VENIPUNCTURE CPT- 4: 36301 11/23/2011 URINALYSIS NONAUTO W/O SCOPE CPT-4: 34043 11/23/2011 PRESCRIP TRANSMIT VIA ERX SY CPT-4: G8553 11/23/2011 REMOVE IMPACTED EAR WAX UNI CPT-4: 92922 10/17/2011 PRESCRIP TRANSMIT VIA ERX SY CPT-4: G8553 10/03/2011 PRESCRIP TRANSMIT VIA ERX SY CPT-4: G8553 08/08/2011 URINALYSIS NONAUTO W/O SCOPE CPT-4: 60740 03/15/2011 URINALYSIS NONAUTO W/O SCOPE CPT-4: 07208 03/04/2011 THER/PROPH/DIAG INJ SC/IM CPT-4: 08273 03/04/2011 ROCEPHIN, PER 250 MG CPT- 4: J0696 03/04/2011 Vital Signs Date Vital 11/30/2018 Blood Pressure 1: 122/64 Code: 8480-6 Height: Weight: 10/31/2018 Blood Pressure 1: 122/66 Code: 8480-6 BMI: 20.5 Code: 33929-7 Heart Rate 1: 83 bpm Height: 5' SpO2: 99% Weight: 105 lbs 10/09/2018 Blood Pressure 1: 126/60 Code: 8480-6 BMI: 19.9 Code: 27835-8 Heart Rate 1: 66 bpm Height: 5' SpO2: 96% Weight: 102 lbs 09/12/2018 Blood Pressure 1: 156/72 Code: 8480-6 BMI: 19.9 Code: 65065-1 Heart Rate 1: 68 bpm Height: 5' Temperature: 36.6 (C) / 97.8 (F) Weight: 102 lbs 08/14/2018 Blood Pressure 1: 136/68 Code: 8480-6 BMI: 21.1 Code: 59259-9 Heart Rate 1: 92 bpm Height: 5' Weight: 108 lbs 07/26/2018 Blood Pressure 1: 128/76 Code: 8480-6 BMI: 21.1 Code: 39084-8 Heart Rate 1: 88 bpm Height: 5' Weight: 108 lbs 06/04/2018 Blood Pressure 1: 124/72 Code: 8480-6 BMI: 21.3 Code: 09640-1 Heart Rate 1: 98 bpm Height: 5' Weight: 109 lbs 01/31/2018 Blood Pressure 1: 116/68 Code: 8480-6 BMI: 21.1 Code: 25381-8 Heart Rate 1: 89 bpm Height: 5' SpO2: 98% Weight: 108 lbs 01/17/2018 Blood Pressure 1: 134/74 Code: 8480-6 BMI: 21.3 Code: 10600-9 Heart Rate 1: 74 bpm Height: 5' SpO2: 96% Waist Measure (cm): 71 cm Weight: 109 lbs 12/14/2017 Blood Pressure 1: 150/78 Code: 8480-6 BMI: 21.5 Code: 30516-5 Heart Rate 1: 77 bpm Height: 5' SpO2: 98% Temperature: 36.7 (C) / 98.1 (F) Weight: 110 lbs 12/07/2017 Blood Pressure 1: 134/70 Code: 8480-6 Heart Rate 1: 76 bpm Height: SpO2: 98% Temperature: 36.8 (C) / 98.2 (F) Weight: 11/14/2017 Blood Pressure 1: 152/84 Code: 8480-6 BMI: 21.9 Code: 63740-3 Heart Rate 1: 95 bpm Height: 5' SpO2: 93% Weight: 112 lbs 03/27/2017 Blood Pressure 1: 122/70 Code: 8480-6 BMI: 21.3 Code: 43687-3 Heart Rate 1: 75 bpm Height: 5' Weight: 109 lbs 01/23/2017 BMI: 21.5 Code: 01464-8 Height: 5' Weight: 110 lbs 01/19/2017 Blood Pressure 1: 112/60 Code: 8480-6 BMI: 21.5 Code: 60364-4 Heart Rate 1: 54 bpm Height: 5' SpO2: 97% Weight: 110 lbs 11/29/2016 Blood Pressure 1: 126/68 Code: 8480-6 Height: 5' Weight: 11/23/2016 Blood Pressure 1: 130/72 Code: 8480-6 BMI: 21.9 Code: 88822-3 Heart Rate 1: 48 bpm Height: 5' SpO2: 97% Temperature: 36.7 (C) / 98.0 (F) Weight: 112 lbs 11/21/2016 Blood Pressure 1: 134/76 Code: 8480-6 BMI: 21.9 Code: 12284-4 Heart Rate 1: 41 bpm Height: 5' SpO2: 94% Temperature: 36.9 (C) / 98.4 (F) Weight: 112 lbs 11/08/2016 Blood Pressure 1: 126/74 Code: 8480-6 Heart Rate 1: 82 bpm Height: 5' SpO2: 94% Weight: 11/02/2016 Blood Pressure 1: 112/66 Code: 8480-6 Heart Rate 1: 72 bpm Height: 5' SpO2: 95% Weight: 10/27/2016 Blood Pressure 1: 130/64 Code: 8480-6 BMI: 21.7 Code: 14187-3 Heart Rate 1: 81 bpm Height: 5' SpO2: 96% Weight: 111 lbs 08/31/2016 Blood Pressure 1: 132/72 Code: 8480-6 BMI: 22.5 Code: 74699-8 Heart Rate 1: 66 bpm Height: 5' Weight: 115 lbs 07/27/2016 Blood Pressure 1: 166/74 Code: 8480-6 BMI: 23.2 Code: 23277-0 Heart Rate 1: 48 bpm Height: 5' SpO2: 90% Temperature: 36.8 (C) / 98.2 (F) Weight: 119 lbs 06/23/2016 Blood Pressure 1: 128/70 Code: 8480-6 BMI: 22.3 Code: 57658-4 Heart Rate 1: 75 bpm Height: 5' SpO2: 97% Weight: 114 lbs 06/09/2016 BMI: 22.7 Code: 84229-5 Heart Rate 1: 73 bpm Height: 5' SpO2: 97% Weight: 116 lbs 05/25/2016 Blood Pressure 1: 138/62 Code: 8480-6 BMI: 22.8 Code: 76713-7 Heart Rate 1: 76 bpm Height: 5' Weight: 117 lbs 05/17/2016 Blood Pressure 1: 116/70 Code: 8480-6 BMI: 22.8 Code: 69666-7 Heart Rate 1: 74 bpm Height: 5' SpO2: 94% Weight: 117 lbs 03/24/2016 Blood Pressure 1: 154/78 Code: 8480-6 BMI: 22.5 Code: 31786-8 Heart Rate 1: 78 bpm Height: 5' SpO2: 97% Weight: 115 lbs 02/02/2016 Blood Pressure 1: 132/70 Code: 8480-6 BMI: 22.3 Code: 74757-4 Heart Rate 1: 74 bpm Height: 5' SpO2: 94% Weight: 114 lbs 2016 Blood Pressure 1: 120/62 Code: 8480-6 BMI: 22.0 Code: 75148-4 Heart Rate 1: 68 bpm Height: 5' Weight: 112 lbs 8 oz 12/21/2015 Blood Pressure 1: 122/82 Code: 8480-6 BMI: 21.9 Code: 40087-3 Heart Rate 1: 83 bpm Height: 5' SpO2: 93% Temperature: 37.1 (C) / 98.7 (F) Weight: 112 lbs 11/03/2015 Blood Pressure 1: 122/72 Code: 8480-6 BMI: 22.4 Code: 28458-2 Heart Rate 1: 62 bpm Height: 5' Weight: 114 lbs 8 oz 10/19/2015 Blood Pressure 1: 138/62 Code: 8480-6 BMI: 21.1 Code: 62648-1 Heart Rate 1: 79 bpm Height: 5' Weight: 108 lbs 10/13/2015 Blood Pressure 1: 120/62 Code: 8480-6 BMI: 21.0 Code: 13422-7 Heart Rate 1: 76 bpm Height: 5' SpO2: 98% Weight: 108 lbs 09/29/2015 Blood Pressure 1: 130/70 Code: 8480-6 BMI: 20.2 Code: 77985-0 Heart Rate 1: 72 bpm Height: 5' Weight: 104 lbs 09/15/2015 Blood Pressure 1: 128/78 Code: 8480-6 BMI: 19.9 Code: 31849-9 Heart Rate 1: 72 bpm Height: 5' Weight: 102 lbs 8 oz 09/01/2015 Blood Pressure 1: 128/68 Code: 8480-6 BMI: 19.8 Code: 49553-8 Height: 5' Weight: 102 lbs 05/26/2015 Blood Pressure 1: 140/68 Code: 8480-6 BMI: 19.0 Code: 47066-8 Heart Rate 1: 70 bpm Height: 5' Weight: 98 lbs 05/21/2015 Blood Pressure 1: 140/78 Code: 8480-6 BMI: 19.2 Code: 55060-2 Heart Rate 1: 85 bpm Height: 5' SpO2: 95% Weight: 99 lbs 05/07/2015 Blood Pressure 1: 140/82 Code: 8480-6 BMI: 19.0 Code: 15201-3 Heart Rate 1: 76 bpm Height: 5' Weight: 98 lbs 03/23/2015 Blood Pressure 1: 142/60 Code: 8480-6 BMI: 18.6 Code: 38460-9 Heart Rate 1: 52 bpm Height: 5' Weight: 96 lbs 03/09/2015 Blood Pressure 1: 138/74 Code: 8480-6 BMI: 18.8 Code: 63589-6 Heart Rate 1: 60 bpm Height: 5' Weight: 97 lbs 10/30/2014 Blood Pressure 1: 112/82 Code: 8480-6 BMI: 19.0 Code: 90851-7 Heart Rate 1: 64 bpm Height: 5' Weight: 98 lbs 07/11/2014 Blood Pressure 1: 146/70 Code: 8480-6 BMI: 18.8 Code: 08853-6 Heart Rate 1: 68 bpm Height: 5' Weight: 97 lbs 05/20/2014 Blood Pressure 1: 142/76 Code: 8480-6 BMI: 18.6 Code: 72267-7 Heart Rate 1: 78 bpm Height: 5' Weight: 96 lbs 04/29/2014 Blood Pressure 1: 138/62 Code: 8480-6 BMI: 18.3 Code: 32187-0 Heart Rate 1: 80 bpm Height: 5' Weight: 94 lbs 8 03/20/2014 Blood Pressure 1: 142/68 Code: 8480-6 BMI: 18.6 Code: 00531-2 Heart Rate 1: 96 bpm Height: 5' Weight: 96 lbs 03/05/2014 Blood Pressure 1: 122/72 Code: 8480-6 BMI: 18.8 Code: 26093-3 Heart Rate 1: 82 bpm Height: 5' SpO2: 97% Weight: 97 lbs 01/29/2014 Blood Pressure 1: 124/78 Code: 8480-6 BMI: 18.8 Code: 37549-9 Heart Rate 1: 60 bpm Height: 5' Weight: 97 lbs 01/14/2014 Blood Pressure 1: 120/58 Code: 8480-6 BMI: 19.2 Code: 62995-3 Heart Rate 1: 56 bpm Height: 5' Temperature: 36.9 (C) / 98.4 (F) Weight: 99 lbs 12/25/2013 Blood Pressure 1: 118/78 Code: 8480-6 BMI: 19.2 Code: 22837-0 Heart Rate 1: 68 bpm Height: 5' Weight: 99 lbs 11/27/2013 Blood Pressure 1: 102/68 Code: 8480-6 BMI: 19.4 Code: 74628-4 Heart Rate 1: 56 bpm Height: 5' Weight: 100 lbs 09/12/2013 Blood Pressure 1: 142/62 Code: 8480-6 BMI: 19.7 Code: 98602-2 Heart Rate 1: 72 bpm Height: 5'1" Weight: 104 lbs 08/15/2013 Blood Pressure 1: 152/92 Code: 8480-6 Heart Rate 1: 96 bpm Weight: 102 lbs 08/01/2013 Blood Pressure 1: 122/68 Code: 8480-6 BMI: 19.1 Code: 33900-5 Heart Rate 1: 68 bpm Height: 5'1" Weight: 101 lbs 07/01/2013 Blood Pressure 1: 130/72 Code: 8480-6 BMI: 19.5 Code: 76500-0 Heart Rate 1: 80 bpm Height: 5'1" Temperature: 36.1 (C) / 97.0 (F) Weight: 103 lbs 05/29/2013 Blood Pressure 1: 126/72 Code: 8480-6 BMI: 19.3 Code: 14839-4 Heart Rate 1: 80 bpm Height: 5'1" Weight: 102 lbs 05/15/2013 Blood Pressure 1: 156/74 Code: 8480-6 BMI: 19.3 Code: 51920-9 Heart Rate 1: 88 bpm Height: 5'1" Weight: 102 lbs 04/23/2013 Blood Pressure 1: 140/82 Code: 8480-6 BMI: 19.3 Code: 97884-4 Heart Rate 1: 72 bpm Height: 5'1" Weight: 102 lbs 03/21/2013 Blood Pressure 1: 142/74 Code: 8480-6 Heart Rate 1: 92 bpm Weight: 103 lbs 01/16/2013 Blood Pressure 1: 120/56 Code: 8480-6 BMI: 20.0 Code: 37210-2 Heart Rate 1: 72 bpm Height: 5'1" Weight: 106 lbs 12/19/2012 Blood Pressure 1: 118/66 Code: 8480-6 Heart Rate 1: 84 bpm Weight: 12/10/2012 Blood Pressure 1: 132/62 Code: 8480-6 Heart Rate 1: 64 bpm Weight: 103 lbs 10/30/2012 Blood Pressure 1: 122/66 Code: 8480-6 BMI: 19.9 Code: 16178-3 Heart Rate 1: 61 bpm Height: 5'1" [...] 1: 118/72 Code: 8480-6 BMI: 21.0 Code: 04525-8 Heart Rate 1: 66 bpm Height: 5'1" Respiratory Rate: 16 bpm Weight: 111 lbs 2012 Blood Pressure 1: 122/62 Code: 8480-6 Heart Rate 1: 68 bpm Weight: 110 lbs 12/01/2011 Blood Pressure 1: 150/60 Code: 8480-6 BMI: 20.8 Code: 38007-6 Heart Rate 1: 60 bpm Height: 5'1" Respiratory Rate: 16 bpm Weight: 110 lbs 11/23/2011 Blood Pressure 1: 170/68 Code: 8480-6 BMI: 21.1 Code: 45793-7 Heart Rate 1: 64 bpm Height: 5'1" Temperature: 36.3 (C) / 97.3 (F) Weight: 111 lbs 8 oz 10/17/2011 Blood Pressure 1: 148/62 Code: 8480-6 Heart Rate 1: 74 bpm 10/03/2011 Blood Pressure 1: 102/48 Code: 8480-6 BMI: 21.4 Code: 81624-9 Heart Rate 1: 76 bpm Height: 5'1" Respiratory Rate: 16 bpm Weight: 113 lbs 08/08/2011 Blood Pressure 1: 128/60 Code: 8480-6 Heart Rate 1: 80 bpm Respiratory Rate: 16 bpm Weight: 113 lbs 05/09/2011 Blood Pressure 1: 130/62 Code: 8480-6 BMI: 20.7 Code: 24266-2 Heart Rate 1: 64 bpm Height: 5'1" Respiratory Rate: 16 bpm Weight: 109 lbs 8 oz 03/29/2011 Blood Pressure 1: 120/62 Code: 8480-6 BMI: 20.2 Code: 52243-4 Heart Rate 1: 66 bpm Height: 5'1" Respiratory Rate: 12 bpm Weight: 107 lbs 03/15/2011 Blood Pressure 1: 120/64 Code: 8480-6 BMI: 19.8 Code: 72476-9 Heart Rate 1: 76 bpm Height: 5'1" Respiratory Rate: 16 bpm Weight: 105 lbs Functional Status No Functional Status data History of Present Illness Symptom Name Status Result Effective Date Notes Location in the throat 11/30/2018 None Quality [...] contacts 03/20/2014 sat next to neighbor in [place] who had tonsillitis sore throat Pertinent Findings [...] loss Onset and Resolution ongoing 03/15/2011 in December weighed 111 urinary frequency Limitation on Activities [...] data Encounters Encounter Performer Location Codes Date ([id number]) 29135 EST. PATIENT, LEVEL III Diagnosis: Acute laryngopharyngitis[ICD10: J06.0] Laura Bahena MD, [facility] CPT-4: 68231 11/30/2018 ([id number]) 58379 EST. 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 PATIENT, LEVEL III Diagnosis: Raynaud's syndrome without gangrene[ICD10: I73.00] Diagnosis: Pain in left hand[ICD10: M79.642] Diagnosis: Pain in right hand[ICD10: M79.641] Karma Baehna MD, [facility] CPT- 4: 34757 10/09/2018 43399 EST. PATIENT, LEVEL III Diagnosis: Cough[ICD10: R05] Diagnosis: Acute laryngopharyngitis[ICD10: J06.0] Diagnosis: Other allergic rhinitis[ICD10: J30.89] Diagnosis: Raynaud's syndrome without gangrene[ICD10: I73.00] Katharine Bahena MD, [facility] CPT-4: 72784 09/12/2018 ([id number]) 52805 EST. PATIENT, LEVEL IV Diagnosis: Raynaud's syndrome without gangrene[ICD10: I73.00] Diagnosis: Pain in right toe(s)[ICD10: M79.674] Diagnosis: Chronic atrial fibrillation[ICD10: I48.2] Karma Bahena MD, [facility] CPT-4: 93057 08/14/2018 ([id number]) 85847 EST. PATIENT, LEVEL IV Diagnosis: Chronic atrial fibrillation[ICD10: I48.2] Diagnosis: Sebaceous cyst[ICD10: L72.3] Diagnosis: Raynaud's syndrome without gangrene[ICD10: I73.00] Karma Bahena MD, [facility] CPT-4: 77511 07/26/2018 ([id number]) 51698 EST. PATIENT, LEVEL IV Diagnosis: Essential (primary) hypertension[ICD10: I10] Diagnosis: Atrophy of thyroid (acquired)[ICD10: E03.4] Diagnosis: Gastro-esophageal reflux disease without esophagitis[ICD10: K21.9] Karma Bahena MD, [facility] CPT-4: 02708 06/04/2018 ([id number]) 97678 EST. PATIENT, LEVEL IV Diagnosis: Essential (primary) hypertension[ICD10: I10] Diagnosis: Atrophy of thyroid (acquired)[ICD10: E03.4] Diagnosis: Other vermin exterminator (current) drug therapy[ICD10: Z79.899] Karma Bahena MD, [facility] CPT-4: 03197 01/31/2018 ([id number]) 13694 EST. PATIENT, LEVEL IV Diagnosis: Essential (primary) hypertension[ICD10: I10] Diagnosis: Chronic atrial fibrillation[ICD10: I48.2] Diagnosis: Allergic rhinitis due to pollen[ICD10: J30.1] Diagnosis: Cough[ICD10: R05] Karma Bahena MD, [facility] CPT-4: 48037 12/14/2017 22046 EST. PATIENT, LEVEL IV Diagnosis: Other allergic rhinitis[ICD10: J30.89] Katharine Bahena MD, [facility] CPT- 4: 97342 12/07/2017 ([id number]) 25981 EST. PATIENT, LEVEL IV Diagnosis: Essential (primary) hypertension[ICD10: I10] Diagnosis: Chronic atrial fibrillation[ICD10: I48.2] Diagnosis: Atrophy of thyroid (acquired)[ICD10: E03.4] Karma Bahena MD, [facility] CPT-4: 32668 11/14/2017 ([id number]) 12452 EST. PATIENT, LEVEL IV Diagnosis: Essential (primary) hypertension[ICD10: I10] Diagnosis: Localized edema[ICD10: R60.0] Diagnosis: Encounter for immunization[ICD10: Z23] Diagnosis: Age-related osteoporosis without current pathological fracture[ICD10: M81.0] Karma Bahena MD, [facility] CPT-4: 44773 03/27/2017 ([id number]) 77719 EST. PATIENT, LEVEL IV Diagnosis: Essential (primary) hypertension[ICD10: I10] Diagnosis: Chronic atrial fibrillation[ICD10: I48.2] Diagnosis: Dysphonia[ICD10: R49.0] Karma Bahena MD, [facility] CPT-4: 89356 01/19/2017 ([id number]) Miscellaneous no charge Diagnosis: Cough[ICD10: R05] Diagnosis: Acute upper respiratory infection, unspecified[ICD10: J06.9] Laura Bahena MD, [facility] CPT-4: 61020 11/29/2016 [id number] EST. PATIENT, LEVEL III Diagnosis: Cough[ICD10: R05] Diagnosis: Acute laryngopharyngitis[ICD10: J06.0] Katharine Bahena MD, [facility] CPT- 4: 99223 11/23/2016 ([id number]) 95847 EST. PATIENT, LEVEL III Diagnosis: Acute laryngopharyngitis[ICD10: J06.0] Laura Bahena MD, [facility] CPT-4: 62053 11/21/2016 ([id number]) Miscellaneous no charge Diagnosis: Laceration without foreign body of right forearm, subsequent encounter[ICD10: S51.811D] Karma Bahena MD, [facility] CPT-4: 29632 11/17/2016 ([id number]) Miscellaneous no charge Diagnosis: Laceration without foreign body of right forearm, subsequent encounter[ICD10: S51.811D] Karma Bahena MD, [facility] CPT-4: 89696 11/14/2016 ([id number]) Miscellaneous no charge Diagnosis: Laceration without foreign body of right forearm, subsequent encounter[ICD10: S51.811D] Karma Bahena MD [facility] CPT-4: 25496 11/11/2016 ([id number]) Miscellaneous no charge Diagnosis: Laceration without foreign body of right forearm, subsequent encounter[ICD10: S51.811D] Karma Bahena MD, [facility] CPT-4: 18422 11/10/2016 ([id number]) 75956 EST. PATIENT, LEVEL II Diagnosis: Laceration without foreign body of right forearm, subsequent encounter[ICD10: S51.811D] Karma Bahena MD, [facility] CPT-4: 45873 11/08/2016 ([id number]) 71351 EST. PATIENT, LEVEL IV Diagnosis: Atrophy of thyroid (acquired)[ICD10: E03.4] Diagnosis: Chronic atrial fibrillation[ICD10: I48.2] Diagnosis: Laceration without foreign body of right forearm, subsequent encounter[ICD10: S51.811D] Karma Bahena MD, [facility] CPT-4: 45494 11/02/2016 ([id number]) 24966 EST. PATIENT, LEVEL III Diagnosis: Laceration without foreign body of right forearm, initial encounter[ICD10: S51.811A] Laura Bahena MD, [facility] CPT-4: 10343 10/27/2016 ([id number]) 68600 EST. PATIENT, LEVEL IV Diagnosis: Essential (primary) hypertension[ICD10: I10] Diagnosis: Chronic atrial fibrillation[ICD10: I48.2] Karma Bahena MD [facility] CPT-4: 81100 08/31/2016 ([id number]) 47725 EST. PATIENT, LEVEL IV Diagnosis: Localized edema[ICD10: R60.0] Diagnosis: Essential (primary) hypertension[ICD10: I10] Diagnosis: Abdominal distension (gaseous)[ICD10: R14.0] Karma Bahena MD, [facility] CPT-4: 89699 07/27/2016 ([id number]) 07064 EST. PATIENT, LEVEL IV Diagnosis: Essential (primary) hypertension[ICD10: I10] Diagnosis: Chronic atrial fibrillation[ICD10: I48.2] Diagnosis: Localized edema[ICD10: R60.0] Karma Bahena MD, [facility] CPT-4: 78459 06/23/2016 ([id number]) 37599 EST. PATIENT, LEVEL III Diagnosis: Localized edema[ICD10: R60.0] Karma Bahena MD [facility] CPT-4: 42278 06/09/2016 ([id number]) 07418 EST. PATIENT, LEVEL III Diagnosis: Irritable bowel syndrome without diarrhea[ICD10: K58.9] Diagnosis: Pruritus ani[ICD10: L29.0] Karma Bahena MD, [facility] CPT-4: 32657 05/25/2016 ([id number]) 45611 EST. PATIENT, LEVEL III Diagnosis: Abdominal distension (gaseous)[ICD10: R14.0] Diagnosis: Encounter for screening mammogram for malignant neoplasm of breast[ICD10: Z12.31] Karma Bahena MD [facility] CPT-4: 74597 05/17/2016 ([id number]) 13335 EST. PATIENT, LEVEL IV Diagnosis: Essential (primary) hypertension[ICD10: I10] Diagnosis: First degree hemorrhoids[ICD10: K64.0] Diagnosis: Encounter for immunization[ICD10: Z23] Karma Bahena MD, [facility] CPT-4: 50562 03/24/2016 ([id number]) 08352 EST. PATIENT, LEVEL III Diagnosis: Epidermal cyst[ICD10: L72.0] Diagnosis: Essential (primary) hypertension[ICD10: I10] Diagnosis: Chronic atrial fibrillation[ICD10: I48.2] Diagnosis: Other chcf (current) drug therapy[ICD10: Z79.899] Karma Bahena MD [facility] CPT-4: 59960 02/02/2016 ([id number]) 38872 EST. PATIENT, LEVEL III Diagnosis: Acute anal fissure[ICD10: K60.0] Karma Bahena MD [facility] CPT-4: 45406 2016 ([id number]) 12528 EST. PATIENT, LEVEL III Diagnosis: Allergic rhinitis due to pollen[ICD10: J30.1] Diagnosis: Acute upper respiratory infection, unspecified[ICD10: J06.9] Laura Bahena MD [facility] CPT-4: 74734 12/21/2015 ([id number]) 85482 EST. PATIENT, LEVEL III Diagnosis: Essential (primary) hypertension[ICD10: I10] Diagnosis: Chronic atrial fibrillation[ICD10: I48.2] Karma Bahena MD, [facility] CPT-4: 13539 11/03/2015 ([id number]) Miscellaneous no charge Diagnosis: Impacted cerumen, right ear[ICD10: H61.21] Katharine Bahena MD, [facility] CPT-4: 14251 10/19/2015 38602 EST. PATIENT, LEVEL IV Diagnosis: Impacted cerumen, right ear[ICD10: H61.21] Diagnosis: Other allergic rhinitis[ICD10: J30.89] Katharine Bahena MD, [facility] CPT- 4: 23469 10/13/2015 ([id number]) 55363 EST. PATIENT, LEVEL IV Diagnosis: Essential (primary) hypertension[ICD10: I10] Diagnosis: Chronic atrial fibrillation[ICD10: I48.2] Diagnosis: Urge incontinence[ICD10: N39.41] Diagnosis: Age-related osteoporosis without current pathological fracture[ICD10: M81.0] Karma Bahena MD, [facility] CPT-4: 94481 09/29/2015 ([id number]) 50212 EST. PATIENT, LEVEL IV Diagnosis: Essential (primary) hypertension[ICD10: I10] Diagnosis: Chronic atrial fibrillation[ICD10: I48.2] Diagnosis: Irritable bowel syndrome without diarrhea[ICD10: K58.9] Diagnosis: Unspecified hemorrhoids[ICD10: K64.9] Karma Bahena MD, [facility] CPT-4: 36148 09/15/2015 ([id number]) 48971 EST. 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 PATIENT, LEVEL III Diagnosis: Hematuria, unspecified[ICD10: R31.9] Diagnosis: Other urethritis[ICD10: N34.2] Diagnosis: Other specified noninflammatory disorders of vagina[ICD10: N89.8] Karma Bahena MD, [facility] CPT-4: 36594 05/26/2015 22010 EST. PATIENT, LEVEL IV Diagnosis: Gout, unspecified[ICD10: M10.9] Karma Bahena MD, [facility] CPT-4: 71147 05/21/2015 ([id number]) 47330 EST. PATIENT, LEVEL IV Diagnosis: Chronic atrial fibrillation[ICD10: I48.2] Diagnosis: Irritable bowel syndrome without diarrhea[ICD10: K58.9] Diagnosis: Cystocele, unspecified[ICD10: N81.10] Diagnosis: Urge incontinence[ICD10: N39.41] Diagnosis: Fecal smearing[ICD10: R15.1] Diagnosis: Hypothyroidism, unspecified[ICD10: E03.9] Karma Bahena MD, [facility] CPT-4: 02908 05/07/2015 ([id number]) 29870 EST. PATIENT, LEVEL III Diagnosis: Atrial fibrillation[ICD9: 427.31] Diagnosis: Bloating[ICD9: 787.3] Karma Bahena MD, [facility] CPT-4: 31761 03/23/2015 ([id number]) 11393 EST. PATIENT, LEVEL IV Diagnosis: Abdominal pain[ICD9: 789.00] Diagnosis: Atrial fibrillation[ICD9: 427.31] Diagnosis: ENCNTR LONG-ANTICOAG USE[ICD9: V58.61] Karma Bahena MD, [facility] CPT-4: 63837 03/09/2015 ([id number]) 57260 EST. PATIENT, LEVEL IV Diagnosis: HEMATURIA NOS[ICD9: 599.70] Diagnosis: Atrial fibrillation[ICD9: 427.31] Diagnosis: HYPOTHYROIDISM[ICD9: 244.9] Karma Bahena MD, [facility] CPT-4: 62170 10/30/2014 ([id number]) 47007 EST. PATIENT, LEVEL IV Diagnosis: Atrial fibrillation[ICD9: 427.31] Diagnosis: ALLERGIC RHINITIS[ICD9: 477.9] Diagnosis: Need for pneumococcal vaccine[ICD9: V03.82] Diagnosis: Osteoarthritis[ICD9: 715.90] Diagnosis: Osteoporosis[ICD9: 733.00] Karma Bahena MD, [facility] CPT-4: 52434 07/11/2014 ([id number]) 34271 EST. PATIENT, LEVEL III Diagnosis: Urge incontinence[ICD9: 788.31] Diagnosis: Dysuria[ICD9: 788.1] Karma Bahena MD, [facility] CPT-4: 45405 05/20/2014 ([id number]) 75518 EST. PATIENT, LEVEL IV Diagnosis: Atrial fibrillation[ICD9: 427.31] Diagnosis: Hematuria[ICD9: 599.70] Diagnosis: Dysuria[ICD9: 788.1] Diagnosis: ESSENTIAL HYPERTENSION[ICD9: 401.9] Karma Bahena MD [facility] CPT- 4: 21476 04/29/2014 ([id number]) 77763 EST. PATIENT, LEVEL IV Diagnosis: ESSENTIAL HYPERTENSION[ICD9: 401.9] Diagnosis: ALLERGIC RHINITIS[ICD9: 477.9] Karma Bahena MD [facility] CPT-4: 52981 03/20/2014 ([id number]) 21322 EST. PATIENT, LEVEL IV Diagnosis: ESSENTIAL HYPERTENSION[ICD9: 401.9] Diagnosis: ATRIAL FIBRILLATION[ICD9: 427.31] Diagnosis: Irritable bowel[ICD9: 564.1] Karma Bahena MD [facility] CPT-4: 08471 03/05/2014 ([id number]) 47810 EST. PATIENT, LEVEL IV Diagnosis: Esophageal reflux[ICD9: 530.81] Diagnosis: DIARRHEA[ICD9: 787.91] Diagnosis: ABDOM PAIN NOS SITE[ICD9: 789.00] Karma Bahena MD [facility] CPT- 4: 85070 01/29/2014 ([id number]) 23203 EST. PATIENT, LEVEL III Diagnosis: Irritable bowel[ICD9: 564.1] Diagnosis: DIARRHEA[ICD9: 787.91] Laura Bahena MD [facility] CPT-4: 19590 01/14/2014 ([id number]) [id number] EST. PATIENT, LEVEL IV Diagnosis: ESSENTIAL HYPERTENSION[ICD9: 401.9] Diagnosis: ATRIAL FIBRILLATION[ICD9: 427.31] Diagnosis: URGE INCONTINENCE[ICD9: 788.31] Diagnosis: MALAISE AND FATIGUE[ICD9: 780.79] Diagnosis: Dyspnea[ICD9: 786.09] Karma Bahena MD [facility] CPT-4: 13853 12/25/2013 ([id number]) 65206 EST. PATIENT, LEVEL IV Diagnosis: ESSENTIAL HYPERTENSION[SNOMED: [id number]] Diagnosis: ATRIAL FIBRILLATION[ICD9: 427.31] Diagnosis: Abdominal pain[ICD9: 789.00] Diagnosis: ESOPHAGEAL REFLUX[ICD9: 530.81] Karma Bahena MD [facility] CPT-4: 93329 11/27/2013 ([id number]) 92016 EST. PATIENT, LEVEL IV Diagnosis: ESSENTIAL HYPERTENSION[SNOMED: [id number]] Diagnosis: ATRIAL FIBRILLATION[ICD9: 427.31] Diagnosis: Chronic osteoarthritis[ICD9: 715.90] Karma Bahena MD [facility] CPT- 4: 96711 09/12/2013 ([id number]) 22952 EST. PATIENT, LEVEL III Diagnosis: ESSENTIAL HYPERTENSION[SNOMED: 88189189] Diagnosis: Bruising[ICD9: 924.9] Diagnosis: ENCNTR LONG-RX USE NEC[ICD9: V58.69] Karma Bahena MD [facility] CPT- 4: 31509 08/15/2013 ([id number]) 23731 EST. PATIENT, LEVEL IV Diagnosis: ESSENTIAL HYPERTENSION[SNOMED: [id number]] Diagnosis: Hematuria[ICD9: 599.70] Diagnosis: Dysuria[ICD9: 788.1] Karma Bahena MD [facility] CPT-4: 90807 08/01/2013 ([id number]) 59690 EST. PATIENT, LEVEL III Diagnosis: UTI[ICD9: 599.0] Diagnosis: Hematuria[ICD9: 599.70] Laura Bahena MD, [facility] CPT-4: 41978 07/01/2013 ([id number]) 85152 EST. PATIENT, LEVEL III Diagnosis: ATRIAL FIBRILLATION[ICD9: 427.31] Diagnosis: ESSENTIAL HYPERTENSION[SNOMED: 90715055] Karma Bahena MD [facility] CPT-4: 76741 05/29/2013 ([id number]) 60045 EST. PATIENT, LEVEL IV Diagnosis: Atrial fibrillation[ICD9: 427.31] Diagnosis: Encounter for monitoring digoxin therapy[ICD9: V58.83] Diagnosis: ESSENTIAL HYPERTENSION[SNOMED: 54437180] Karma Bahena MD [facility] CPT-4: 42471 05/15/2013 ([id number]) 44446 EST. PATIENT, LEVEL IV Diagnosis: ESSENTIAL HYPERTENSION[SNOMED: 95735292] Diagnosis: ATRIAL FIBRILLATION[ICD9: 427.31] Diagnosis: PALPITATIONS[ICD9: 785.1] Diagnosis: Dizziness and giddiness[ICD9: 780.4] Karma Bahena MD, [facility] CPT- 4: 30748 04/23/2013 ([id number]) 16440 EST. PATIENT, LEVEL III Diagnosis: OTHER CONSTIPATION[ICD9: 564.09] Diagnosis: ABDOM PAIN NOS SITE[ICD9: 789.00] Laura Bahena MD, [facility] CPT- 4: 90733 03/21/2013 ([id number]) 55429 EST. PATIENT, LEVEL IV Diagnosis: ESSENTIAL HYPERTENSION[SNOMED: 42372168] Diagnosis: Atrial fibrillation[ICD9: 427.31] Karma Bahena MD, [facility] CPT- 4: 64396 01/16/2013 ([id number]) Miscellaneous no charge Diagnosis: CELLULITIS OF HAND[ICD9: 682.4] Karma Bahena MD, [facility] CPT-4: 63183 12/19/2012 ([id number]) Miscellaneous no charge Diagnosis: ENCOUNTER FOR THERAPEUTIC DRUG MONITORING[ICD9: V58.83] Diagnosis: CELLULITIS OF HAND[ICD9: 682.4] Karma Bahena MD, [facility] CPT-4: 74924 12/14/2012 Miscellaneous no charge Diagnosis: CELLULITIS OF HAND[ICD9: 682.4] Karma Bahena MD, [facility] CPT-4: 57507 12/12/2012 50082 EST. PATIENT, LEVEL II Diagnosis: CELLULITIS OF HAND[ICD9: 682.4] Diagnosis: ENCNTR LONG-RX USE NEC[ICD9: V58.69] Diagnosis: LONG-TERM USE ANTICOAGUL[ICD9: V58.61] Karma Bahena MD, [facility] CPT-4: 45669 12/11/2012 ([id number]) 32289 EST. PATIENT, LEVEL III Diagnosis: CELLULITIS OF HAND[ICD9: 682.4] Karma Bahena MD [facility] CPT-4: 47658 12/10/2012 ([id number]) 25305 EST. PATIENT, LEVEL IV Diagnosis: Elevated digoxin level[ICD9: 796.0] Diagnosis: ATRIAL FIBRILLATION[ICD9: 427.31] Diagnosis: Inflammatory arthritis[ICD9: 714.9] Karma Bahena MD, [facility] CPT- 4: 74311 10/30/2012 ([id number]) 38197 EST. PATIENT, LEVEL IV Diagnosis: Atrial fibrillation[ICD9: 427.31] Diagnosis: Anticoagulant long-term use[ICD9: V58.61] Diagnosis: ESSENTIAL HYPERTENSION[SNOMED: 11580695] Karma Bahena MD [facility] CPT-4: 37240 08/08/2012 ([id number]) 80402 EST. PATIENT, LEVEL IV Diagnosis: ABDOM PAIN NOS SITE[ICD9: 789.00] Diagnosis: Constipation - functional[ICD9: 564.09] Diagnosis: EDEMA[ICD9: 782.3] Diagnosis: ATRIAL FIBRILLATION[ICD9: 427.31] Karma Bahena MD [facility] CPT- 4: 27318 07/11/2012 ([id number]) 15885 EST. PATIENT, LEVEL III Diagnosis: Cystocele[ICD9: 618.01] Diagnosis: Rectocele[ICD9: 618.04] Karma Bahena MD [facility] CPT-4: 40022 05/08/2012 ([id number]) 50108 EST. 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 PATIENT, LEVEL IV Diagnosis: ATRIAL FIBRILLATION[ICD9: 427.31] Diagnosis: URGE INCONTINENCE[ICD9: 788.31] Diagnosis: MALAISE AND FATIGUE[ICD9: 780.79] Diagnosis: Dyspnea[ICD9: 786.09] [facility] CPT-4: 81903 02/20/2012 33385 EST. PATIENT, LEVEL IV Diagnosis: Hematuria[ICD9: 599.70] Diagnosis: Vaginal yeast infection[ICD9: 112.1] Diagnosis: ATRIAL FIBRILLATION[ICD9: 427.31] Laura Bahena MD [facility] CPT- 4: 28565 02/13/2012 ([id number]) 83858 EST. PATIENT, LEVEL IV Diagnosis: Atrial fibrillation[ICD9: 427.31] Diagnosis: Anticoagulation goal of INR 2 to 3[ICD9: V58.83] Diagnosis: Urinary incontinence, urge[ICD9: 788.31] Diagnosis: ESSENTIAL HYPERTENSION[SNOMED: 97756441] Karma Bahena MD [facility] CPT-4: 91939 02/01/2012 ([id number]) 40048 EST. PATIENT, LEVEL IV Diagnosis: Atrial fibrillation[ICD9: 427.31] Diagnosis: Anticoagulant long-term use[ICD9: V58.61] Diagnosis: ESSENTIAL HYPERTENSION[SNOMED: 06344026] Karma Bahena MD [facility] CPT-4: 58773 2012 03784 EST. PATIENT, LEVEL IV Diagnosis: UTI[ICD9: 599.0] Diagnosis: ESSENTIAL HYPERTENSION[SNOMED: 67864919] Diagnosis: MALAISE AND FATIGUE[ICD9: 780.79] Diagnosis: Esophageal reflux[ICD9: 530.81] Karma Bahena MD [facility] CPT-4: 16339 12/01/2011 ([id number]) 52990 EST. PATIENT, LEVEL IV Diagnosis: UTI (urinary tract infection)[ICD9: 599.0] Diagnosis: ESSENTIAL HYPERTENSION[SNOMED: 58947078] Diagnosis: URGE INCONTINENCE[ICD9: 788.31] Karma Bahena MD [facility] CPT-4: 31644 11/23/2011 ([id number]) 08430 EST. PATIENT, LEVEL IV Diagnosis: ESSENTIAL HYPERTENSION[SNOMED: 70187162] Diagnosis: IMPACTED CERUMEN[ICD9: 380.4] Diagnosis: MALAISE AND FATIGUE[ICD9: 780.79] Diagnosis: EDEMA[ICD9: 782.3] Karma Bahena MD [facility] CPT-4: 23943 10/03/2011 59965 EST. PATIENT, LEVEL IV Diagnosis: ESSENTIAL HYPERTENSION[SNOMED: 81040817] Diagnosis: Generalized osteoarthritis[ICD9: 715.09] Diagnosis: OSTEOPOROSIS[ICD9: 733.00] Karma Bahena MD, [facility] CPT-4: 78059 08/08/2011 06678 EST. PATIENT, LEVEL IV Diagnosis: Muscle cramp[ICD9: 729.82] Diagnosis: Torticollis[ICD9: 723.5] Diagnosis: Rash[ICD9: 782.1] Karma Bahena MD, [facility] CPT-4: 87042 05/09/2011 10186 EST. PATIENT, LEVEL IV Diagnosis: Leg cramps, sleep related[ICD9: 327.52] Diagnosis: Underweight[ICD9: 783.22] Karma Bahena MD, [facility] CPT-4: 68142 03/29/2011 51346 EST. PATIENT, LEVEL IV Diagnosis: UTI[ICD9: 599.0] Diagnosis: Urge incontinence[ICD9: 788.31] Diagnosis: Loss of weight[ICD9: 783.21] Diagnosis: Palpitations[ICD9: 785.1] Diagnosis: Peripheral neuropathy, idiopathic[ICD9: 356.9] Karma Bahena MD, [facility] CPT-4: 94477 03/15/2011 Plan of Care Planned Activity Notes Codes Status Date Visit Plan: Pharyngitis-Discussed natural and expected course of this diagnosis and need to alert me if symptoms do not follow expected course, or if any worse. Recommended salt water gargles as needed for pain. Ty lenol/motrin as needed for fever/discomfort. 11/30/2018 Appointment: Laura Colin WPtel: [phone] (30 min) Complex 11/30/2018 Patient Education: Patient Medication Summary Completed 11/30/2018 Appointment: Karma Bahena WPtel: [facility] (15 min) Moderate 11/14/2018 Visit Plan: Hypothyroidism [...] for imvexxy 10/31/2018 Appointment: Karma Bahena WPtel: [facility] (15 min) Moderate 10/31/2018 Patient Education: Patient Medication Summary Completed 10/31/2018 Visit Plan: Hand pain with arthritis - Raynaud syndrome - discussed with pt - RX for Voltaren gel sent to the pharmacy. continue with amlodipine. 10/09/2018 Appointment: Karma Bahena WPtel: [facility]1 [facility] [place] (15 min) Moderate 10/09/2018 Patient Education: Patient Medication Summary Completed 10/09/2018 Appointment: Karma Bahena WPtel: [phone] [facility] (15 min) Moderate 10/01/2018 Visit Plan: URI [...] or concerns. 09/12/2018 Appointment: Katharine Dai WPtel: [address] [facility] (15 min) Moderate 09/12/2018 Patient Education: Patient Medication Summary Completed 09/12/2018 Appointment: Karma Bahena WPtel: [phone] [facility] (15 min) Moderate 08/16/2018 Visit Plan: I [...] removed. 08/14/2018 Appointment: Karma Bahena WPtel: [facility]6 [facility] (15 min) Moderate 08/14/2018 Patient Education: Patient [...] removed. 07/26/2018 Appointment: [facility] Bahen[facility]Ptel[facility] (15 min) Moderate 07/26/2018 Patient Education: Patient [...] not improving. 06/04/2018 Appointment: Kar[facility] Bahen[facility]Ptel[facility] (15 min) Moderate 06/04/2018 Patient Education: Patient Medication Summary Completed 06/04/2018 Appointment: Kar[facility] Bahen[facility]Ptel[facility] (15 min) Moderate 03/14/2018 Visit Plan: Hypertension [...] q 3 months or q 6 m [facility] based on previous levels of control. 01/31/2018 Appointment: [facility] Dail[facility] [facility] [facility] - Annual Wellness Visit 01/31/2018 [...] allergy spray. 12/14/2017 Appointment: Karma Bahena WPtel: [facility] [facility] (15 min) Moderate 12/14/2017 Patient Education: Patient [...] allergy spray. 12/07/2017 Appointment: Kath[facility]ai [facility]Ptel[facility] [facility] (15 min) Moderate 12/07/2017 Patient Education: Patient [...] q 3 months or q 6 m [facility] based on previous levels of control. 11/14/2017 Appointment: Karma Bahena WPtel[facility] [facility] (15 min) Moderate 11/14/2017 Patient Education: [...] shot today. 03/27/2017 Appointment: Karma Bahena WPtel: [address] [place], [place] [address] (15 min) Moderate 03/27/2017 Patient Education: Patient [...] surrogate. 01/23/2017 Appointment: Katharine Dai WPtel: [facility] [address] - Annual Wellness Visit 01/23/2017 Patient Education: [...] becoming uncontrolled. 01/19/2017 Appointment: Karma Bahena WPtel: [facility]0 [facility] (15 min) Moderate 01/19/2017 Patient Education: Patient Medication Summary Completed 01/19/2017 Care Plan: Referral Order SNOMED-CT : [id number] Pending 01/19/2017 Appointment: Karma Bahena WPtel: [facility]5 [facility] (15 min) Moderate 01/04/2017 Appointment: Karma Bahena WPtel: [facility]5 [facility] (15 min) Moderate 12/28/2016 Visit Plan: TCU-[id number] zpack-call if symptoms do not resolve or if any worse. Patient verbalized understanding of plan. 11/29/2016 Appointment: Laura Colin WPtel: [address] [place], [place] [phone] (15 min) Moderate 11/29/2016 Patient Education: Patient [...] patient's pharmacy. 11/23/2016 Appointment: Katharine Dai WPtel: [address] [place], [place] [phone] (15 min) Moderate 11/23/2016 Patient Education: Patient Medication Summary Completed 11/23/2016 Visit Plan: Pharyngitis-Discussed natural and expected course of this diagnosis and need to alert me if symptoms do not follow expected course, or if any worse. Recommended salt water gargles as needed for pain. Ty lenol/motrin as needed for fever/discomfort. 11/21/2016 Appointment: Laura Colin WPtel: [address] [place], [place] [phone] [place] (15 min) Moderate 11/21/2016 Patient Education: Patient [...] symptoms. 11/08/2016 Appointment: Karma Bahena WPtel: [phone] [facility] (10 min) Simple 11/08/2016 Patient Education: Patient [...] bactroban, etc. 11/02/2016 Appointment: Karma Bahena WPtel: [facility] (15 min) Moderate 11/02/2016 Appointment: Nurse Visit 11/02/2016 Patient Education: Patient Medication Summary Completed 11/02/2016 Appointment: Nurse Visit 10/31/2016 Visit Plan: Laceration-right forearm- Pt was instructed to keep the wound clean, cleanse with sterile saline, use bactroban ointment, call if redness, pustular drainage, or any other acute concerns. Follow up Monday for dressing changes. 10/27/2016 Appointment: [facility] Colin WPtel[facility] [facility] (30 min) Complex 10/27/2016 Patient Education: Patient [...] in symptoms. 08/31/2016 Appointment: Karma Bahena WPtel: [address] [place] [address] (15 min) Moderate 08/31/2016 Patient Education: Patient [...] your swelling. 07/27/2016 Appointment: Karma Bahena WPtel: [facility] (15 min) Moderate 07/27/2016 Patient Education: Patient [...] lasix 06/23/2016 Appointment: Karma Bahena WPtel: [facility] [place] (15 min) Moderate 06/23/2016 Patient Education: Patient Medication Summary Completed 06/23/2016 Patient Education: Hypertension Completed 06/23/2016 Visit Plan: Edema - with Dyspnea - RX for laxis and compression socks - pt to call if not improving. 06/09/2016 Appointment: Karma Bahena WPtel: [facility]0 [facility] [place] (15 min) Moderate 06/09/2016 Patient Education: Patient Medication Summary Completed 06/09/2016 Visit Plan: Abdominal pain and rectal itching - recommended pt to use betamethasone on vaginal/rectal region, monitor symptoms call if not improving. Continue with beano and simethicone 05/25/2016 Appointment: Karma Bahena WPtel: [facility]2 [facility] [place] (15 min) Moderate 05/25/2016 Patient Education: Patient Medication Summary Completed 05/25/2016 Care Plan: SCREENINGMAMMOGRAPHYDIGITAL [facility] [address]-2 Pending 05/20/2016 Visit Plan: Abdominal distension - use simethicone four times daily - after meals - if it does not help - in the next two weeks - call the office and we will do a ct scan of the abdomen and pelvis 05/17/2016 Appointment: Karma Bahena WPtel: [facility] [place] (15 min) Moderate 05/17/2016 Patient Education: Patient [...] ointment 03/24/2016 Appointment: Karma Bahena WPtel: [facility] [place] (30 min) Complex 03/24/2016 Patient Education: Patient [...] allergy spray. 12/21/2015 Appointment: Laura Colin WPtel: [facility]9 [phone] (30 min) Complex 12/21/2015 Patient Education: [...] becoming uncontrolled. 11/03/2015 Appointment: Karma Bahena WPtel: [facility]0 [facility] (15 min) Moderate 11/03/2015 Patient Education: Patient [...] had left kidney and ureter removed in [place]-doing well 09/01/2015 Appointment: (30 min) Complex 09/01/2015 Patient Education: Patient Medication Summary Completed 09/01/2015 Patient Education: Hypertension Completed 09/01/2015 Appointment: Karma Bahena WPtel: [address] [place] [address] (15 min) Moderate 07/13/2015 Visit Plan: Hematuria/Urethritis [...] 05/13/2015 Care Plan: Referral Order SNOMED-CT : [id number] Ordered 05/08/2015 Visit Plan: Atrial Fibrillation - [...] Dr. Collins. 05/07/2015 Appointment: Karma Bahena WPtel: [address] [place] [address] (15 min) Moderate 05/07/2015 Patient Education: Patient [...] becoming uncontrolled. 10/30/2014 Appointment: Karma Bahena WPtel: [address] [place], [place] [phone] Follow up 10/30/2014 Patient Education: Patient Medication Summary Completed 10/30/2014 Appointment: Karma Bahena WPtel: [address] [place], [place] [phone] Follow up 07/22/2014 Visit Plan: Atrial Fibrillation [...] daily recommended to increase iron containing foods. will have staff call hospital to see if pneumonia vaccine was given in hospital. 07/11/2014 Appointment: Karma Bahena WPtel: [address] [place], [place] [phone] Sick 07/11/2014 Patient Education: Patient Medication Summary Completed 07/11/2014 Appointment: Karma Bahena WPtel: [address] [place], [place] [phone] Follow up 07/07/2014 Visit Plan: Urinary incontinence and recurrent UTI's - doctor will refer to Dr. Joel Collins - for nonsurgical intervention for potential electrical stimulation/training of pelvic floor muscles - for strengthening - can start on the treatment when you get back from [place] - will also ask him about doing a cystoscopy to look into bladder to see if there is any bladder irritation. keep using the Premarin - use about 25Cent size of cream onto finger to apply to urethra and do this three times weekly. 05/20/2014 Appointment: Karma Bahena WPtel: [facility] Follow up 05/20/2014 Patient Education: Patient Medication Summary Completed 05/20/2014 Appointment: JosefKarma WPtel: [facility] Lab Draw 05/14/2014 Patient Education: Patient Medication [...] vesicare. 04/29/2014 Appointment: Karma Bahena WPtel: [facility] Follow up 04/29/2014 Patient Education: Patient Medication [...] allergy spray. 03/20/2014 Appointment: Karma Bahena WPtel: 101 [facility] [facility] 03/20/2014 Patient Education: Patient Medication Summary [...] becoming uncontrolled. 03/05/2014 Appointment: Karma Bahena WPtel: [facility] Follow up 03/05/2014 Patient Education: Patient Medication [...] with report. 01/29/2014 Appointment: Karma Bahena WPtel: [facility] Follow up 01/29/2014 Patient Education: Patient Medication [...] exposure,and dyspnea on exertion - will ask [place] Patient do an overnight oxygen study on [place] as she has cardiac history, weight loss, and nocturnal hypoxemia may be a part of her weight loss and fatigue. 12/25/2013 Appointment: Karma Bahena WPtel: [facility] Follow up 12/25/2013 Patient Education: Patient Medication [...] daily. 11/27/2013 Appointment: Karma Bahena WPtel: [address]5 [facility] Follow up 11/27/2013 Patient Education: Patient Medication [...] heart rate. Osteoarthritis - send pt to [facility] physical therapy for gereral osteoarhtritis program for strengthening and pain reduction. Hypertension - well controlled - continue with current medications, continue with no added salt diet. Pt has been encouraged to exercise daily. The pt has been advised to call the office if there are any acute concerns about change in blood pressure readings at home. 09/12/2013 Appointment: Karma Bahena WPtel: [facility] Follow up 09/12/2013 Patient Education: Patient Medication Summary Completed 09/12/2013 Patient Education: Hypertension Completed 09/12/2013 Appointment: Karma Bahena WPtel: [facility]5 [facility] Follow up 08/21/2013 Visit Plan: Hypertension - [...] coumadin-check PT/INR 08/15/2013 Appointment: Karma Bahena WPtel: [address]6 [facility] [place] Follow up 08/15/2013 Patient Education: Patient Medication [...] urethra. 08/01/2013 Appointment: Karma Bahena WPtel: [facility]5 [facility] [place] Follow up 08/01/2013 Patient Education: Patient Medication Summary Completed 08/01/2013 Patient Education: Hypertension Completed 08/01/2013 Appointment: Laura Colin WPtel: [facility]5 [phone] [place] Lab Draw 07/29/2013 Patient Education: Patient Medication Summary Completed 07/29/2013 Visit Plan: Osteoporosis-prolia on june 25-patient to let Dr Hansen know 07/01/2013 Appointment: Laura Colin WPtel: [facility] [place] Follow up 07/01/2013 Appointment: Karma Bahena WPtel: [address] [place] [address] [place] Follow up 07/01/2013 Patient Education: Patient Medication Summary Completed 07/01/2013 Appointment: Karma Bahena WPtel: [facility]5 [facility] [place] Follow up 06/25/2013 Appointment: Karma Bahena WPtel: [facility] [facility] [place] Lab Draw 06/20/2013 Patient Education: Patient Medication Summary Completed 06/20/2013 Appointment: Karma Bahena WPtel: [facility] Lab Draw 06/19/2013 Visit Plan: Atrial Fibrillation [...] at home. 05/29/2013 Appointment: Karma Bahena WPtel: [facility]5 [facility] Follow up 05/29/2013 Patient Education: Patient Medication [...] home. 05/15/2013 Appointment: Karma Bahena WPtel: [facility] [place] Other 05/15/2013 Patient Education: Patient Medication [...] today. 04/23/2013 Appointment: Karma Bahena WPtel: [address] [facility] [place] Other 04/23/2013 Patient Education: Patient Medication [...] regimen. 03/21/2013 Appointment: Laura Colin WPtel: [facility]5 [phone] Follow up 03/21/2013 Patient Education: Patient [...] becoming uncontrolled. 01/16/2013 Appointment: Karma Bahena WPtel: [facility] Follow up 01/16/2013 Patient Education: Patient Medication Summary Completed 01/16/2013 Patient Education: Hypertension Completed 01/16/2013 Visit Plan: Wound Instructions - Pt was instruced to keep the wound clean, wash with antibacterial soap, use triple antibiotic ointment, call if redness, pustular drainage, or any other acute conerns. 12/19/2012 Appointment: Karma Bahena WPtel: [address] [place], [place] [phone] Other 12/19/2012 Patient Education: Patient Medication Summary Completed 12/19/2012 Patient Education: Patient Medication Summary Completed 12/17/2012 Visit Plan: Cellulitis - improved- monitor symptoms - need to check handon Monday morning. 12/14/2012 Appointment: Karma Bahena WPtel: 101 [facility] Follow up 12/14/2012 Patient Education: Patient Medication Summary Completed 12/14/2012 Visit Plan: Cellulitis - improved- monitor symptoms - need to check handon Monday morning. 12/12/2012 Appointment: Karma Bahena WPtel: [facility]5 [facility] Work-in 12/12/2012 Patient Education: Patient Medication Summary [...] warmth, discharge. 12/10/2012 Appointment: Karma Bahena WPtel: [facility]5 [facility] Other 12/10/2012 Patient Education: Patient Medication Summary [...] uncontrolled. 10/30/2012 Appointment: Karma Bahena WPtel: [facility]1 [facility] Follow up 10/30/2012 Patient Education: Patient Medication Summary Completed 10/30/2012 Appointment: Laura Colin WPtel: 1015 [facility] Lab Draw 09/13/2012 Patient Education: Patient Medication [...] and 3.5. 08/08/2012 Appointment: Karma Bahena WPtel: [facility] [facility]4 [facility] Other 08/08/2012 Patient Education: Patient Medication Summary [...] regimen. 07/11/2012 Appointment: Karma Bahena WPtel: [facility] [place] [id number] [place] swelling, leg edema Other 07/11/2012 Patient Education: [...] medication vaginally. 05/08/2012 Appointment: Karma Bahena WPtel: [address] [place], [place] [id number] [place] Follow up 05/08/2012 Patient Education: Patient Medication [...] during hospitalization. 04/18/2012 Appointment: Karma Bahena WPtel: [address] [place], [place] [id number] [place] Follow up 04/18/2012 Patient Education: Patient Medication Summary Completed 04/18/2012 Patient Education: High Blood Pressure: Essential Hypertension Completed 04/18/2012 App[facility]ment: [facility] [place] Follow up 04/09/2012 Appointment: Karma Bahena WPtel: [facility] [place] Lab Draw 04/04/2012 Appointment: Laura Colin WPtel: [address] [place], [place] [id number] [place] Lab Draw 03/19/2012 Visit Plan: Abdominal pain-N/V-patient acutely ill and requires admission to the hospital for further work up[facility]Will keep patient NPO for now and plan to check CT scan as well as labs and start patient on intravenous fluids. Patient verbalized understanding of plan. 03/13/2012 Visit Plan: Abdominal pain-N/V-patient acutely ill and requires admission to the hospital for further work up[facility]-Will keep patient NPO for [...] will have to start heparin protocol. 03/13/2012 Patient Education: Patient Medication Summary Completed 03/13/2012 Patient Education: High Blood Pressure: Essential Hypertension Completed 03/13/2012 Appointment: Karma Bahena WPtel: [address] [place], [place] [id number] [place] Lab Draw 03/08/2012 Patient Education: Patient [...] home. Fstigue and dypnea- recommended cardiac rehab. 02/20/2012 Appointment: Karma Bahena WPtel: [facility]5 [facility] Other 02/20/2012 Patient Education: Patient Medication Summary [...] uncontrolled. 02/13/2012 [facility]ment: [facility] [place] [address] Other 02/13/2012 Patient Education: Patient Medication Summary Completed 02/13/2012 Appointment: Karma Bahena WPtel: [facility] [place] Lab Draw 02/07/2012 Visit Plan: [...] the medication. 02/01/2012 Appointment: Karma Bahena WPtel: [facility] Other 02/01/2012 Patient Education: Patient Medication Summary Completed 02/01/2012 Patient Education: High Blood Pressure: Essential Hypertension Completed 02/01/2012 Appointment: Karma Bahena WPtel: [facility]8 [facility]66[facility] Lab Draw 01/17/2012 Visit Plan: Atrial Fibrillation [...] at home. 2012 Appointment: Karma Bahena WPtel: [address] [place], [place] [id number] Other 2012 Patient Education: Patient Medication Summary Completed 2012 Patient Education: High Blood Pressure: Essential Hypertension Completed 2012 Appointment: Karma Bahena WPtel: [address] [place], [place] [phone] Follow up 12/20/2011 Visit Plan: Dicyclomine up [...] emergency room. 12/01/2011 Appointment: [facility] Ba[facility]Ptel[facility] [facility] [place] Other 12/01/2011 Patient Education: Patient Medication Summary [...] infection resolves. 11/23/2011 Appointment: [facility]Ptel[facility] [place] Other 11/23/2011 Patient Education: Patient Medication Summary Completed 11/23/2011 Patient Education: High Blood Pressure: Essential Hypertension Completed 11/23/2011 Visit Plan: Cerumen Impaction - The impacted cerumen was removed with the use of either ear currette alone or in combination with ear curette and water pick. The patient tolerated the procedure without incident and had improvement in hearing 10/17/2011 Appointment: Laura Colin WPtel: 101[address] [phone] [place] Other 10/17/2011 Patient Education: Patient Medication [...] by irrigation. 10/03/2011 Appointment: Karma Bahena WPtel: [address] Other 10/03/2011 Patient Education: Patient Medication [...] is evidence. 08/08/2011 Appointment: Karma Bahena WPtel: 1018 [facility] [place] Other 08/08/2011 Patient Education: Patient Medication Summary Completed 08/08/2011 Patient Education: High Blood Pressure: Essential Hypertension Completed 08/08/2011 Visit Plan: Muscle cramps - the cramps are a little better, continue with the Diltiazem and it is okay to use the over the counter supplement with quinine - but use it sparingly. For the rash, use the prescripti on the nurse practitioner physicians assistant prescribed for the itching , call if the rash is not improved. Torticollis - continue with physical therapy, call if the neck muscles do not continue to show improvement. 05/09/2011 Appointment: Karma Bahena WPtel: [address] [place], [place] [address] Other 05/09/2011 Patient Education: Patient Medication Summary [...] and continue with water aerobics. 03/29/2011 Appointment: Karam Bahena WPtel: [address] [place], [place] [id number] Other 03/29/2011 Patient Education: Patient Medication Summary Completed 03/29/2011 Appointment: Karma Bahena WPtel: [address] [place], [place] [phone] Other 03/17/2011 Visit Plan: UTI - UA negative. Urge incontinence- restart on the vesicare- at 5 mg. Continue to avoid caffinated foods/fluids. Peripheral Neuropathy - per wound care rn report - Continue with the metanex. Loss of weight - WEIGHT CHECK IN 2 WKS. Palpitations- likely stress induced. If the symptoms worsen, call the office. 03/15/2011 Appointment: Karma Bahena WPtel: [address] [place], [place] [phone] Follow up 03/15/2011 Patient Education: Patient Medication Summary Completed 03/15/2011 Visit Plan: Rocephin 500mg IM 03/04/2011 Patient Education: Patient Medication Summary Completed 03/04/2011 Referral: Dr Jeff Referral Appointment Requested Referral: Corby Collins Referral Appointment Requested Instructions Comment . Hypertension - uncontrolled -per patient's home [...] paper to help decrease irritation of urethra. strep swab salt water gargle keflex if [...] therefore, would not change the medication. . Gout Attack - Pt complains of [...] color, consistency, recheck at follow up appointment. . UTI - UA negative. Urge incontinence- restart on the vesicare- at 5 mg. Continue to avoid caffinated foods/fluids. Peripheral Neuropathy - per wound care rn report - Continue with the metanex. Loss of weight - WEIGHT CHECK IN 2 WKS. Palpitations- likely stress induced. If the symptoms worsen, call the office. . I have called Dr. Rock about [...] it would need to be surgically removed. change the thyroid to 1/2 pill on [...] symptoms - referral to Dr. Collins. . URI - Pt advised to increase [...] clinic with any changes, questions, or concerns. increase the lisinopril to 20mg twice daily [...] use betamethasone ointment on rectal tissue . Cyst - epidermal cyst - pt to continue to use prn betamethasone on rectum for discomfort. HTN - and Afib - controlled/stable - no change in current mangement - pt to call if she notices her blood pressure or heart rate becoming uncontrolled. . Cellulitis - continue with oral antibiotics as previously directed, return to clinic as previously directed, call for acute change in symptoms, worsening redness, warmth, discharge. Nasal spray- use twice daily, one spray [...] in the nasal steroid allergy spray. . Leg cramps - uncontrolled with the [...] your diet and continue with water aerobics. . Hypertension - well controlled - continue [...] their heart rate is becoming uncontrolled. . Hypothyroidism - pt with chronic hypothyroidism, [...] vaginal atrophy - rx for imvexxy . Allergies - chronic - recommended pt [...] spray in the nasal steroid allergy spray. rita hen hearing aide drying beads - [...] based on previous levels of control. . Atrial Fibrillation - pt on chronic [...] home. Fstigue and dypnea- recommended cardiac rehab. . Hypothyroidism - pt with chronic hypothyroidism, [...] continue with supportive care, bactroban, etc. . Cellulitis - improved- monitor symptoms - need to check handon Monday morning. . Atrial Fibrillation - pt on chronic anticoagulation and is currently rate controlled. The pt is to have labs done as appropriate to monitor medication levels and is to report if they start to feel as if their heart rate is becoming uncontrolled. Digoxin and Coumadin doses are good for control of anticoagulation and heart rate. Osteoarthritis - send pt to [facility] for strengthening and pain reduction. [...] For the rash, use the prescription the nurse practitioner physicians assistant prescribed for the itching , call if [...] in blood pressure readings at home. . UTN-brpks-fvs zpack-call if symptoms do not resolve or if any worse. Patient verbalized understanding of plan. . Cellulitis - continue with oral antibiotics [...] patient stabilized during the removal process. . Cellulitis - improved- monitor symptoms - [...] had left kidney and ureter removed in [place]- doing well . Hematuria - check UA. [...] symptoms not improved on this regimen. . Cerumen Impaction - The impacted cerumen was removed with the use of either ear currette alone or in combination with ear curette and water pick. The patient tolerated the procedure without incident and had improvement in hearing . Hypertension - well controlled - continue [...] the weight that was lost during hospitalization. . Abdominal pain-N/V-patient acutely ill and requires admission to the hospital for further work up-Dr. Bahena in to evalaute patient as well-Will keep patient NPO for now and plan to check CT scan as well as labs and start patient on intravenous fluids. Patient verbalized understanding of plan. diflucan 150mg daily x 7 days - [...] etc. Patient verbalized understanding of plan. . Osteoporosis-prolia on june 25-patient to let Dr Hansen know . Hypertension - well controlled - continue [...] the treatment when you get back from [place] - will also ask him about doing [...] the treatment when you get back from [place] - will also ask him about doing [...] pradaxa, will have to start heparin protocol. INCREASE YOUR LISINOPRIL 10MG TO 2 PILLS [...] exposure,and dyspnea on exertion - will ask [place] Patient do an overnight oxygen study on [...] current meds - no change in symptoms. . 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 seborrheic Keratosis on left breast . Abdominal [...] daily use of bactroban - monitor symptoms. PT HAS BEEN INSTRUCTED TO START [...]
--- OUTSIDE RECORDS SUMMARY | 2018-12-10 17:43 | XMS REPORT | CCD ---
Author Author Laura Colin Organization Karma Bahena MD, [facility] Address [address] [place] [address] Phone Care Team Providers Care Personal Protection Specialist Name Role Phone Karma Bahena PP Unavailable CCM Unavailable Summary Purpose Interface Exchange Insurance Providers Payer name Policy type / Coverage type Covered constitution party ID Effective Begin Date Effective End Date WPS Medicare Part B Medicare Part B [id number] 2018 Unknown AARP Medicare Part B [id number] 2018 Unknown Family history Sister Diagnosis Age [...] Unknown House 03/15/[address]: 280330857 Never smoker 03/15/2011 Has the patient ever used illegal drugs? Unknown Has never used illegal drugs 03/15/2011 Allergies, Adverse Reactions, Alerts Substance Reaction Codes Entered Date Inactivated Date Status BACTINE RxNorm: 517912 03/04/2011 No Inactive Date Active MICONAZOLE RxNorm: 6932 03/04/2011 No Inactive Date Active NEOSPORIN RxNorm: 143928 03/04/2011 No Inactive Date Active NEOMYCIN RxNorm: 7299 03/04/2011 No Inactive Date Active CORTISPORIN RxNorm: 01141 03/04/2011 No Inactive Date Active bactrim RxNorm: 877927 03/13/2012 No Inactive Date Active AUGMENTIN diarrhea RxNorm: 513981 2016 No Inactive Date Active METRONIDAZOLE Unknown [...] 401.9 ICD-10: I10 Active 12/25/2013 Unknown Other long term care social worker (current) drug therapy ICD-9: V58.83 ICD-10: Z79.899 [...] 706.2 ICD-10: L72.0 Active 02/01/2016 Unknown Other half-way (current) drug therapy ICD-9: V58.69 ICD-10: Z79.899 [...] ICD-9: 401.9 ICD-10: I10 12/25/2013 Active Other long term care social worker (current) drug therapy ICD-9: V58.83 ICD-10: Z79.899 [...] ICD-9: 706.2 ICD-10: L72.0 02/01/2016 Active Other half-way (current) drug therapy ICD-9: V58.69 ICD-10: Z79.899 [...] Fill Instructions Keflex 500 mg capsule RxNorm: 326737 1 Capsule(s) PO TID 11/30/2018 12/06/2018 Active pantoprazole 40 mg tablet,delayed release RxNorm: 860223 1 TABLET(S) PO DAILY 11/29/2018 11/23/2019 Active amlodipine 5 mg tablet RxNorm: 271490 Tablet(s) 1/2 TABLET(S) PO DAILY MAY TAKE AN EXTRA 1/2 PILL AT THE END OF THE DAY IF BLOOD PRESSURE IS ELEVATED OVER 140 11/29/2018 05/27/2019 Active cyclobenzaprine 5 mg tablet RxNorm: 676007 1/2 Tablet(s) PO TID TABLET(S) 1/2 TABLET(S) PO Q8 NEEDED MUSCLE SPASMS 10/31/2018 04/28/2019 Active Imvexxy Starter Pack 4 mcg vaginal insert, dose pack RxNorm: 9521677 1 dose VAG BIW 10/31/2018 01/28/2019 Active Voltaren 1 % topical gel RxNorm: 151843 2 Gram(s) TOP QID on left shoulder and bilateral hands 10/17/2018 05/14/2019 Active PA APPROVED UNTIL JUL 09 2019 [id number] amlodipine 5 mg tablet RxNorm: 937699 1/2 TABLET(S) PO DAILY MAY TAKE AN EXTRA 1/2 PILL AT THE END OF THE DAY IF BLOOD PRESSURE IS ELEVATED OVER 140 10/15/2018 11/28/2018 Inactive Patient requests 90 days supply Voltaren 1 % topical gel RxNorm: 184464 2 Gram(s) TOP QID on left shoulder and bilateral hands 10/09/2018 10/16/2018 Inactive levothyroxine 75 mcg tablet RxNorm: 644610 1 Tablet(s) PO daily 09/19/2018 01/16/2019 Active Keflex 500 mg capsule RxNorm: 469283 1 Capsule(s) PO TID 09/12/2018 09/18/2018 Inactive spironolactone 25 mg tablet RxNorm: 492996 1 Tablet(s) PO BID 08/14/2018 11/06/2019 Active see new directions and quantity cyclobenzaprine 5 mg tablet RxNorm: 088965 Tablet(s) TABLET(S) 1/2 TABLET(S) PO Q8 NEEDED MUSCLE SPASMS 08/14/2018 10/30/2018 Inactive Nitro-Bid 2 % transdermal ointment RxNorm: 253833 1 dime size amount TD BID to fingers and toes 08/14/2018 09/12/2018 Inactive cyclobenzaprine 5 mg tablet RxNorm: 550678 TABLET(S) 1/2 TABLET(S) PO Q8 NEEDED MUSCLE SPASMS 08/06/2018 08/13/2018 Inactive amlodipine 5 mg tablet RxNorm: 567611 1/2 Tablet(s) PO daily may take an extra 1/2 pill at the end of the day if blood pressure is elevated over 140 07/26/2018 10/14/2018 Inactive cefdinir 300 mg capsule RxNorm: 964550 1 Capsule(s) PO BID 06/20/2018 06/26/2018 Inactive cefdinir 300 mg capsule RxNorm: 251097 1 Capsule(s) PO BID 06/20/2018 06/19/2018 Inactive metoprolol succinate ER 50 mg tablet,extended release 24 hr RxNorm: 691256 1.5 Tablet(s) daily 06/15/2018 03/11/2019 Active sucralfate 100 mg/mL oral suspension RxNorm: 463414 2 Teaspoon(s) PO TID as needed with reflux symptoms 06/04/2018 No Stop Date Active Vesicare 10 mg tablet RxNorm: 757307 1 TABLET(S) PO EVERY OTHER DAY 05/14/2018 01/08/2019 Active levothyroxine 50 mcg tablet RxNorm: 400106 1 TABLET(S) PO DAILY 04/30/2018 09/18/2018 Inactive Patient requests 90 days supply spironolactone 25 mg tablet RxNorm: 404145 1 Tablet(s) PO daily 03/14/2018 08/13/2018 Inactive levothyroxine 50 mcg tablet RxNorm: 751412 1 Tablet(s) PO daily 02/01/2018 04/29/2018 Inactive Eliquis 2.5 mg tablet RxNorm: 8898304 1 Tablet(s) PO BID 01/31/2018 02/20/2018 Inactive levothyroxine 50 mcg tablet RxNorm: 791021 1 Tablet(s) PO daily 01/31/2018 01/31/2018 Inactive Eliquis 2.5 mg tablet RxNorm: 1356236 TAKE 1 TABLET BY MOUTH TWICE DAILY 01/23/2018 07/21/2018 Inactive metoprolol succinate ER 50 mg tablet,extended release 24 hr RxNorm: 474632 1 TABLET(S) PO DAILY 01/23/2018 01/30/2018 Inactive metoprolol succinate ER 50 mg tablet,extended release 24 hr RxNorm: 230757 1.5 Tablet(s) daily 01/22/2018 06/14/2018 Inactive lisinopril 20 mg tablet RxNorm: 377030 1/2 Tablet(s) daily 01/19/2018 01/21/2018 Inactive Patient requests 90 days supply Singulair 10 mg tablet RxNorm: 810765 TAKE 1 TABLET BY MOUTH AT BEDTIME 01/18/2018 04/17/2018 Inactive Patient requests 90 days supply Singulair 10 mg tablet RxNorm: 057600 Tablet(s) PO 01/17/2018 01/17/2018 Inactive digoxin 125 mcg tablet RxNorm: 759462 1 TABLET(S) PO DAILY 01/03/2018 12/28/2018 Active Symbicort 160 mcg-4.5 mcg/actuation HFA aerosol inhaler RxNorm: 2925745 2 Puff(s) INH BID 12/14/2017 04/12/2018 Inactive please dispense an aerochamber for patient as well as her symbicort cyclobenzaprine 5 mg tablet RxNorm: 387841 Tablet(s) 1/2 TABLET(S) PO Q8 NEEDED MUSCLE SPASMS 12/14/2017 08/05/2018 Inactive pantoprazole 40 mg tablet,delayed release RxNorm: 194182 1 Tablet(s) PO daily 12/14/2017 11/28/2018 Inactive ProAir RespiClick 90 mcg/actuation breath activated RxNorm: 9018141 1-2 INH QID as needed shortness of breath 12/14/2017 07/11/2018 Inactive cyclobenzaprine 5 mg tablet RxNorm: 902696 1/2 TABLET(S) PO Q8 NEEDED MUSCLE SPASMS 12/08/2017 12/13/2017 Inactive betamethasone dipropionate 0.05 % topical ointment RxNorm: 625504 1 Application TOP TID use topically on the rectal tissue three times daily x 1 week then as needed 11/13/2017 No Stop Date Active Premarin 0.625 mg/gram vaginal cream RxNorm: 973575 1/2 GRAM(S) VAG TIW 11/13/2017 10/30/2018 Inactive cyclobenzaprine 5 mg tablet RxNorm: 607072 1/2 TABLET(S) PO Q8 NEEDED MUSCLE SPASMS 10/17/2017 12/07/2017 Inactive Vesicare 10 mg tablet RxNorm: 080742 1 Tablet(s) PO every other day 10/17/2017 04/14/2018 Inactive lisinopril 20 mg tablet RxNorm: 595982 1 TABLET(S) PO DAILY 10/02/2017 01/18/2018 Inactive Patient requests 90 days supply levothyroxine 75 mcg tablet RxNorm: 891950 1 TABLET(S) PO DAILY 09/25/2017 01/30/2018 Inactive spironolactone 25 mg tablet RxNorm: 605920 1 TABLET(S) PO DAILY 08/16/2017 03/13/2018 Inactive cyclobenzaprine 5 mg tablet RxNorm: 423024 1/2 TABLET(S) PO Q8 NEEDED MUSCLE SPASMS 08/16/2017 10/16/2017 Inactive Eliquis 2.5 mg tablet RxNorm: 4303359 TAKE 1 TABLET BY MOUTH TWICE DAILY 07/26/2017 01/21/2018 Inactive cyclobenzaprine 5 mg tablet RxNorm: 078205 1/2 Tablet(s) PO Q8 as needed muscle spasms 06/19/2017 08/15/2017 Inactive lisinopril 20 mg tablet RxNorm: 890914 1 TABLET(S) PO DAILY 06/12/2017 10/01/2017 Inactive metoprolol succinate ER 50 mg tablet,extended release 24 hr RxNorm: 016163 1 TABLET(S) PO DAILY 04/07/2017 01/01/2018 Inactive spironolactone 25 mg tablet RxNorm: 280549 1 Tablet(s) PO daily 03/27/2017 03/13/2018 Inactive acyclovir 800 mg tablet RxNorm: 453746 1 Tablet(s) PO TID 03/21/2017 03/30/2017 Inactive acyclovir 800 mg tablet RxNorm: 162656 1 Tablet(s) PO TID 03/21/2017 03/20/2017 Inactive levothyroxine 75 mcg tablet RxNorm: 501381 1 Tablet(s) PO daily 03/16/2017 09/11/2017 Inactive spironolactone 25 mg tablet RxNorm: 648712 1 TABLET(S) PO DAILY 02/09/2017 03/26/2017 Inactive lisinopril 20 mg tablet RxNorm: 954702 1 TABLET(S) PO DAILY 01/02/2017 05/31/2017 Inactive Zithromax Z-Claudio 250 mg tablet RxNorm: 333602 1 Tablet(s) PO UD 11/29/2016 12/03/2016 Inactive ZPACK Keflex 500 mg capsule RxNorm: 893431 1 Capsule(s) PO TID 11/23/2016 12/02/2016 Inactive guaifenesin 400 mg tablet RxNorm: 888196 1 Tablet(s) PO Q6 as needed 11/23/2016 11/27/2016 Inactive omeprazole 40 mg capsule,delayed release RxNorm: 864739 1 Capsule(s) PO QPM 11/02/2016 12/13/2017 Inactive digoxin 125 mcg tablet RxNorm: 252859 1 TABLET(S) PO DAILY 10/27/2016 07/23/2017 Inactive cyclobenzaprine 5 mg tablet RxNorm: 855086 1/2 Tablet(s) PO Q8 PRN 10/25/2016 06/18/2017 Inactive prn muscle spasms Augmentin 500 mg-125 mg tablet RxNorm: 647115 1 Tablet(s) PO BID 10/24/2016 11/02/2016 Inactive Lasix 20 mg tablet RxNorm: 051493 Tablet(s) PRN one to two times a week if needed 07/27/2016 No Stop Date Active Patient requests 90 days supply spironolactone 25 mg tablet RxNorm: 209625 1 Tablet(s) PO daily 07/27/2016 02/08/2017 Inactive Diflucan 150 mg tablet RxNorm: 261541 1 Tablet(s) PO daily 07/27/2016 08/02/2016 Inactive lisinopril 20 mg tablet RxNorm: 260560 1 Tablet(s) PO daily 07/12/2016 01/01/2017 Inactive Lasix 20 mg tablet RxNorm: 664935 1 TABLET(S) PO EVERY OTHER DAY EVERY OTHER DAY 06/10/2016 07/26/2016 Inactive Patient requests 90 days supply potassium chloride ER 10 mEq capsule,extended release RxNorm: 409788 1 CAPSULE(S) PO EVERY OTHER DAY 06/10/2016 07/26/2016 Inactive Patient requests 90 days supply potassium chloride ER 10 mEq capsule,extended release RxNorm: 959080 1 Capsule(s) PO every other day 06/09/2016 06/09/2016 Inactive Lasix 20 mg tablet RxNorm: 900218 1 Tablet(s) PO every other day every other day 06/09/2016 06/09/2016 Inactive levothyroxine 88 mcg tablet RxNorm: 565594 1 Tablet(s) PO daily 05/11/2016 11/06/2016 Inactive Premarin 0.625 mg/gram vaginal cream RxNorm: 693114 1/2 Gram(s) VAG TIW 03/24/2016 03/18/2017 Inactive metoprolol succinate ER 50 mg tablet,extended release 24 hr RxNorm: 268191 1 Tablet(s) PO daily 03/24/2016 03/18/2017 Inactive pantoprazole 40 mg tablet,delayed release RxNorm: 819305 1 Tablet(s) PO daily 02/08/2016 11/01/2016 Inactive betamethasone dipropionate 0.05 % topical ointment RxNorm: 212087 1 Application TOP TID use topically on the rectal tissue three times daily x 1 week then as needed 02/02/2016 11/12/2017 Inactive pantoprazole 40 mg tablet,delayed release RxNorm: 348599 1 Tablet(s) PO daily 2016 02/07/2016 Inactive alprazolam 0.25 mg tablet RxNorm: 998141 1 Tablet(s) PO Q6 as needed 12/04/2015 No Stop Date Active Vesicare 10 mg tablet RxNorm: 403754 1 Tablet(s) PO every other day 11/03/2015 10/16/2017 Inactive alprazolam 0.25 mg tablet RxNorm: 986582 1 Tablet(s) PO Q6 as needed 11/03/2015 12/03/2015 Inactive Premarin 0.625 mg/gram vaginal cream RxNorm: 907797 1/2 Gram(s) VAG TIW 11/03/2015 03/23/2016 Inactive levothyroxine 88 mcg tablet RxNorm: 838622 1 Tablet(s) PO daily 11/03/2015 05/10/2016 Inactive Diflucan 150 mg tablet RxNorm: 563567 1 Tablet(s) PO daily 10/19/2015 10/25/2015 Inactive cetirizine 10 mg chewable tablet RxNorm: 6625130 1 Tablet(s) PO daily 10/13/2015 11/11/2015 Inactive cetirizine 10 mg capsule RxNorm: 1765048 1 Capsule(s) PO daily 10/13/2015 11/11/2015 Inactive Vesicare 10 mg tablet RxNorm: 932374 1/2 TABLET(S) PO BID 09/21/2015 11/02/2015 Inactive betamethasone dipropionate 0.05 % topical ointment RxNorm: 157333 1 Application TOP TID use topically on the rectal tissue three times daily x 1 week then as needed 09/15/2015 02/01/2016 Inactive lisinopril 20 mg tablet RxNorm: 654055 1 Tablet(s) PO daily 09/01/2015 07/11/2016 Inactive digoxin 125 mcg tablet RxNorm: 485982 1 Tablet(s) PO daily 09/01/2015 08/25/2016 Inactive Augmentin 500 mg-125 mg tablet RxNorm: 968504 1 Tablet(s) PO TID 05/26/2015 06/04/2015 Inactive Pyridium 200 mg tablet RxNorm: 0242611 1 Tablet(s) PO TID 05/26/2015 05/27/2015 Inactive levothyroxine 88 mcg tablet RxNorm: 587343 1 Tablet(s) PO daily except 1/2 pill on monday and 05/07/2015 11/02/2015 Inactive digoxin 125 mcg tablet RxNorm: 200580 1 Tablet(s) PO daily 05/07/2015 08/31/2015 Inactive lisinopril 20 mg tablet RxNorm: 547234 1 TABLET(S) PO BID 04/13/2015 09/01/2015 Inactive Coumadin 1 mg tablet RxNorm: 832105 1 TABLET(S) PO DAILY 03/31/2015 08/31/2015 Inactive Coumadin 2 mg tablet RxNorm: 814751 4MG IN AM AND 1MG AT NIGHT TABLET(S) PO DAILY DIRECTED. 03/31/2015 08/31/2015 Inactive levothyroxine 88 mcg tablet RxNorm: 317610 1 Tablet(s) PO daily 03/23/2015 05/06/2015 Inactive alprazolam 0.25 mg tablet RxNorm: 969681 Tablet(s) PO 03/23/2015 04/06/2015 Inactive levothyroxine 88 mcg tablet RxNorm: 290524 1 Tablet(s) PO daily 01/28/2015 03/22/2015 Inactive levothyroxine 88 mcg tablet RxNorm: 917102 1 Tablet(s) PO daily 01/28/2015 01/27/2015 Inactive diltiazem ER 120 mg capsule,extended release RxNorm: 071638 1 Capsule(s) PO BID patient would like 4 months at a time 01/06/2015 09/28/2015 Inactive digoxin 125 mcg tablet RxNorm: 157294 Tablet(s) 1 TABLET(S) PO DAILY 12/24/2014 12/23/2014 Inactive pt will be paying palomares (On $4 list)Patient requests 90 days supply digoxin 125 mcg tablet RxNorm: 353350 Tablet(s) 1 TABLET(S) PO DAILY M W F Sat and 2 tabs on 12/24/2014 05/06/2015 Inactive pt will be paying [employer]omares (On $4 list)Patient requests 90 days supply dicyclomine 20 mg tablet RxNorm: 413288 1 Tablet(s) PO daily 11/17/2014 08/31/2015 Inactive one ac dinner and up to tid prn levothyroxine 88 mcg tablet RxNorm: 240378 1 Tablet(s) PO daily 11/03/2014 01/27/2015 Inactive Premarin 0.625 mg/gram vaginal cream RxNorm: 273614 1 APPLICATION VAG 1 APPLICATOR PER VAGINA 3 TIMES PER WEEK 11/03/2014 07/30/2015 Inactive digoxin 125 mcg tablet RxNorm: 161426 1 TABLET(S) PO DAILY 09/29/2014 12/23/2014 Inactive pt will be paying palomares (On $4 list)Patient requests 90 days supply digoxin 125 mcg tablet RxNorm: 676178 1 TABLET(S) PO DAILY 07/11/2014 04/06/2015 Inactive Vesicare 10 mg tablet RxNorm: 918801 1/2 Tablet(s) PO BID 05/20/2014 05/14/2015 Inactive Levaquin 500 mg tablet RxNorm: 219056 1 Tablet(s) PO daily 05/06/2014 05/08/2014 Inactive take probiotic BID while on ABT Levaquin 500 mg tablet RxNorm: 902702 1 Tablet(s) PO daily 05/02/2014 05/05/2014 Inactive take probiotic BID while on ABT diltiazem ER 120 mg capsule,extended release RxNorm: 125007 1 Capsule(s) PO BID patient would like 4 months at a time 04/29/2014 2015 Inactive Vesicare 10 mg tablet RxNorm: 001013 1/2 Tablet(s) PO BID 04/29/2014 05/19/2014 Inactive lisinopril 20 mg tablet RxNorm: 024136 1 Tablet(s) PO BID 03/20/2014 03/14/2015 Inactive diltiazem 90 mg tablet RxNorm: 582437 1/2 TABLET(S) PO QPM 03/04/2014 04/28/2014 Inactive also 180 q am diltiazem ER 120 mg capsule,extended release RxNorm: 197979 1 Capsule(s) PO daily patient would like 4 months at a time 01/29/2014 04/28/2014 Inactive Vesicare 10 mg tablet RxNorm: 815149 1 Tablet(s) PO QHS 01/14/2014 04/28/2014 Inactive Coumadin 2 mg tablet RxNorm: 209298 4mg in AM and 1mg at night Tablet(s) PO daily as directed. 12/25/2013 03/30/2015 Inactive Metanx 3 mg-35 mg-2 mg tablet RxNorm: 1 Tablet(s) PO daily 12/25/2013 11/02/2015 Inactive digoxin 125 mcg tablet RxNorm: 543245 1 Tablet(s) PO daily 12/25/2013 09/28/2014 Inactive pt will be paying palomares (On $4 list) Coumadin 2 mg tablet RxNorm: 626961 7.5 wed 5mg other Tablet(s) PO as directed. 12/03/2013 12/24/2013 Inactive omeprazole 20 mg tablet,delayed release RxNorm: 339320 1 Tablet(s) PO BID 11/27/2013 04/28/2014 Inactive Coumadin 2 mg tablet RxNorm: 508929 5 mg daily Tablet(s) PO as directed. 11/26/2013 12/02/2013 Inactive 5 mg daily Xanax 0.25 mg tablet RxNorm: 468896 1 Tablet(s) PO Q6 PRN 11/11/2013 12/25/2013 Inactive alprazolam 0.25 mg tablet RxNorm: 659772 tablet oral 11/11/2013 03/22/2015 Inactive sucralfate 1 gram tablet RxNorm: 989510 1 Tablet(s) PO AC & HS 11/04/2013 11/03/2013 Inactive sucralfate 1 gram tablet RxNorm: 649726 1 Tablet(s) PO AC & HS 11/04/2013 01/02/2014 Inactive Synthroid 100 mcg tablet RxNorm: 858575 1 Tablet(s) PO daily 10/31/2013 10/25/2014 Inactive Synthroid 100 mcg tablet RxNorm: 645419 1 Tablet(s) PO daily 09/30/2013 10/29/2013 Inactive Vesicare 10 mg tablet RxNorm: 862486 1 Tablet(s) PO QHS 09/30/2013 01/13/2014 Inactive Lotemax 0.5 % eye ointment RxNorm: 3650806 ointment opht 09/06/2013 12/10/2013 Inactive levothyroxine 100 mcg tablet RxNorm: 315527 tablet oral 09/05/2013 11/02/2014 Inactive Synthroid 100 mcg tablet RxNorm: 998931 1 Tablet(s) PO daily 09/05/2013 09/29/2013 Inactive Prolia 60 mg/mL Sub-Q Syringe RxNorm: 548945 1 Milliliter(s) SQ 06/25/2013 11/02/2015 Inactive dicyclomine 20 mg tablet RxNorm: 093573 1 Tablet(s) PO daily 06/24/2013 06/18/2014 Inactive one ac dinner and up to tid prn omeprazole 20 mg tablet,delayed release RxNorm: 237842 1 Tablet(s) PO BID 06/24/2013 11/26/2013 Inactive Cipro 500 mg tablet RxNorm: 460435 1 Tablet(s) PO BID 06/20/2013 06/26/2013 Inactive diltiazem ER 120 mg capsule,extended release RxNorm: 350593 1 Capsule(s) PO daily patient would like 4 months at a time 06/03/2013 01/28/2014 Inactive Coumadin 2 mg tablet RxNorm: 908674 as directed Tablet(s) PO as directed. 05/29/2013 11/25/2013 Inactive 5 mg daily Synthroid 88 mcg tablet RxNorm: 924265 1 Tablet(s) PO daily 04/24/2013 04/23/2013 Inactive Synthroid 88 mcg tablet RxNorm: 790577 1 Tablet(s) PO daily 04/24/2013 07/28/2013 Inactive Premarin 0.625 mg/gram vaginal cream RxNorm: 520908 1 Application VAG 1 applicator per vagina 3 times per week 04/23/2013 04/17/2014 Inactive Influenza Virus Vaccine 0.5 mL RxNorm: IM 04/23/2013 04/23/2013 Inactive digoxin 125 mcg tablet RxNorm: 833117 1 Tablet(s) PO daily 02/20/2013 04/20/2013 Inactive pt will be paying palomares (On $4 list) Digox 125 mcg tablet RxNorm: 0453903 tablet oral 02/13/2013 03/20/2014 Inactive digoxin 125 mcg tablet RxNorm: 192781 1 Tablet(s) PO daily 02/13/2013 02/19/2013 Inactive diltiazem 90 mg tablet RxNorm: 913970 1/2 Tablet(s) PO QPM 02/13/2013 02/07/2014 Inactive also 180 q am Levoxyl 75 mcg tablet RxNorm: 680486 1 Tablet(s) PO 01/16/2013 04/23/2013 Inactive Coumadin 2 mg tablet RxNorm: 633030 6mg daily except 3mg on wed and fri Tablet(s) PO 01/15/2013 05/28/2013 Inactive 5 mg daily Coumadin 2 mg tablet RxNorm: 057777 6mg daily Tablet(s) PO 12/21/2012 01/14/2013 Inactive 5 mg daily silver sulfadiazine 1 % Topical Cream RxNorm: 623160 TOP apply to affected area with each dressing change 12/19/2012 12/25/2013 Inactive cephalexin 500 mg tablet RxNorm: 953265 1 Tablet(s) PO TID 12/11/2012 12/17/2012 Inactive digoxin 125 mcg tablet RxNorm: 117545 1 Tablet(s) PO daily 10/30/2012 02/12/2013 Inactive digoxin 125 mcg tablet RxNorm: 329522 2 tab tue thurs one other days Tablet(s) PO daily 10/23/2012 10/29/2012 Inactive lisinopril 10 mg tablet RxNorm: 531835 1 Tablet(s) PO daily 10/17/2012 08/14/2013 Inactive Cipro 500 mg tablet RxNorm: 914141 1 Tablet(s) PO BID 09/13/2012 09/19/2012 Inactive Coumadin 1 mg tablet RxNorm: 625899 1 Tablet(s) PO daily 09/03/2012 09/02/2012 Inactive Coumadin 1 mg tablet RxNorm: 626466 1 Tablet(s) PO daily 09/03/2012 12/21/2012 Inactive Coumadin 2 mg tablet RxNorm: 505724 Tablet(s) PO 07/25/2012 12/20/2012 Inactive 5 mg daily digoxin 125 mcg tablet RxNorm: 111592 1 Tablet(s) PO daily 06/28/2012 10/22/2012 Inactive Coumadin 2 mg tablet RxNorm: 493792 Tablet(s) PO 06/27/2012 07/24/2012 Inactive 5mg daily except 4mg on monday Coumadin 2 mg tablet RxNorm: 021480 Tablet(s) PO 06/19/2012 06/26/2012 Inactive 5mg e wed thur sat sun4mg mon(has 2mg and 1 mg tab) digoxin 125 mcg tablet RxNorm: 233570 1 Tablet(s) PO daily 05/29/2012 06/27/2012 Inactive Coumadin 2 mg tablet RxNorm: 458688 Tablet(s) PO 05/15/2012 06/18/2012 Inactive 5mg tue thur sat sun4mg mon frid(has 2mg and 1 mg tab) Coumadin 2 mg tablet RxNorm: 348183 Tablet(s) PO 04/25/2012 05/14/2012 Inactive 5mg tue thru sat4mg mond sun(has 2mg and 1 mg tab) Metanx 3 mg-35 mg-2 mg tablet RxNorm: 1 Tablet(s) PO BID 04/18/2012 12/24/2013 Inactive dicyclomine 20 mg tablet RxNorm: 822850 1 Tablet(s) PO 04/18/2012 06/23/2013 Inactive one ac dinner and up to tid prn digoxin 125 mcg tablet RxNorm: 826775 Tablet(s) PO daily except .25 on Tuesdays and 04/09/2012 05/28/2012 Inactive omeprazole 20 mg tablet,delayed release RxNorm: 244044 1 Tablet(s) PO BID 04/09/2012 04/03/2013 Inactive digoxin 125 mcg tablet RxNorm: 548715 1 Tablet(s) PO UD daily except none on Tuesdays and 03/13/2012 04/08/2012 Inactive Premarin 0.625 mg/gram Vaginal Cream RxNorm: 784247 1 Application VAG 1 applicator per vagina 3 times per week 02/20/2012 02/13/2013 Inactive omeprazole 20 mg tablet,delayed release RxNorm: 183364 1 Tablet(s) PO BID 02/13/2012 04/08/2012 Inactive Vesicare 10 mg tablet RxNorm: 189344 1 Tablet(s) PO QHS 02/13/2012 02/06/2013 Inactive Diflucan 150 mg tablet RxNorm: 586292 1 Tablet(s) PO daily 02/13/2012 02/19/2012 Inactive omeprazole 20 mg tablet,delayed release RxNorm: 154738 1 Tablet(s) PO BID 01/06/2012 02/12/2012 Inactive Calcium 600 + D(3) 600 mg (1,500)-200 unit Tab RxNorm: 985679 2 Tablet(s) PO BID 01/06/2012 08/31/2015 Inactive diltiazem 90 mg tablet RxNorm: 434208 1/2 Tablet(s) PO QPM 12/26/2011 02/12/2013 Inactive also 180 q am diltiazem ER 180 mg Cap RxNorm: 117483 1 Capsule(s) PO QAM 12/26/2011 04/08/2012 Inactive 45mg q hs Flagyl 500 mg Tab RxNorm: 841117 1 Tablet(s) PO BID 12/14/2011 12/20/2011 Inactive dicyclomine 10 mg Cap RxNorm: 929961 1 Capsule(s) PO AC & HS 12/01/2011 12/25/2011 Inactive Levaquin 500 mg Tab RxNorm: 221698 1 Tablet(s) PO daily 11/23/2011 11/29/2011 Inactive Rocephin 500 mg Solution for Injection RxNorm: 9748389 Inj 11/23/2011 11/23/2011 Inactive acyclovir 400 mg Tab RxNorm: 516498 1 Tablet(s) PO QID 11/10/2011 11/19/2011 Inactive acyclovir 400 mg Tab RxNorm: 660786 1 Tablet(s) PO QID 11/10/2011 11/09/2011 Inactive lisinopril 20 mg Tab RxNorm: 494813 1 Tablet(s) PO daily 10/03/2011 11/27/2011 Inactive lisinopril 20 mg Tab RxNorm: 760615 1 Tablet(s) PO daily 08/08/2011 10/02/2011 Inactive Reclast 5 mg/100 mL IV RxNorm: 387770 Milliliter(s) IV Yearly 06/08/2011 01/16/[address] Hansen manages Rocephin 500 mg Solution for Injection RxNorm: 3069735 1 Milliliter(s) Inj 03/04/2011 08/08/2011 Inactive Ceftin 500 mg Tab RxNorm: 750781 1 Tablet(s) PO BID 03/04/2011 08/08/2011 Inactive Vitamin D3 1,000 unit tablet RxNorm: 441664 2 Tablet(s) PO daily No Start Date Active Stool Softener 100 mg tablet RxNorm: 3219701 2 Tablet(s) PO QHS No Start Date Active Beano tablet RxNorm: 2-3 Tablet(s) PO as needed No Start Date Active Probiotic Pearls 15 mg (1 billion cell) capsule,delayed release RxNorm: 1 Capsule(s) PO daily No Start Date Active Lipitor 10 mg tablet RxNorm: 544495 1 Tablet(s) PO daily No Start Date Active Miralax 17 gram oral powder packet RxNorm: 740206 1/2 packet PO QHS No Start Date Active multivitamin Tab RxNorm: 1 Tablet(s) PO daily No Start Date Active Tylenol Extra Strength 500 mg tablet RxNorm: 614037 2 Tablet(s) PO as needed No Start Date Active Combigan 0.2 %-0.5 % eye drops RxNorm: 904455 1 Drop(s) OPH BID No Start Date Active 1 drop twice daily left eye Lexapro 5 mg tablet RxNorm: 922915 1 Tablet(s) PO daily No Start Date Active Tatiana Allergy 180 mg tablet RxNorm: 536426 1 Tablet(s) PO daily No Start Date Active Lotemax 0.5 % eye drops,suspension RxNorm: 067342 1 Drop(s) OPH right eye BID No Start Date Active Levoxyl 50 mcg tablet RxNorm: 111432 1 Tablet(s) PO daily No Start Date 01/15/2013 Inactive lisinopril-hydrochlorothiazide 20 mg-25 mg Tab RxNorm: 885885 1 Tablet(s) PO daily No Start Date 08/07/2011 Inactive Metanx 3 mg-35 mg-2 mg tablet RxNorm: 1 Tablet(s) PO daily No Start Date 04/17/2012 Inactive diltiazem CD 120 mg capsule,extended release 24 hr RxNorm: 853927 1 Capsule(s) PO daily No Start Date 09/28/2015 Inactive lisinopril 20 mg tablet RxNorm: 442780 Tablet(s) PO No Start Date Active Lumigan 0.01 % Eye Drops RxNorm: 9790934 1 Drop(s) OPH daily Left eye No Start Date 12/10/2013 Inactive prednisolone acetate 1 % Eye Drops, Susp RxNorm: 4795756 1 Drop(s) OPH BID 1 drop right eye am and hs No Start Date 11/02/2015 Inactive Eliquis 5 mg tablet RxNorm: 0727844 1 Tablet(s) PO BID No Start Date 06/08/2016 Inactive potassium gluconate (bulk) Misc RxNorm: Miscellaneous No Start Date 12/25/2011 Inactive Calcium 600 + D(3) 600 mg (1,500)-200 unit Tab RxNorm: 697516 3 Tablet(s) PO daily No Start Date 2012 Inactive Zyrtec 10 mg tablet RxNorm: 1179728 1 Tablet(s) PO daily No Start Date 08/02/2016 Inactive Synthroid 100 mcg tablet RxNorm: 572846 1 Tablet(s) PO daily No Start Date 09/04/2013 Inactive metoprolol succinate ER 50 mg tablet,extended release 24 hr RxNorm: 366225 1 Tablet(s) PO daily No Start Date 03/23/2016 Inactive Carafate 100 mg/mL oral suspension RxNorm: 067166 2 Teaspoon(s) PO as needed with reflux symptoms No Start Date 06/03/2018 Inactive Metanx 3 mg-35 mg-2 mg tablet RxNorm: 1 Tablet(s) PO daily 2pm No Start Date 11/02/2015 Inactive Lexapro 5 mg tablet RxNorm: 419412 1 Tablet(s) PO daily No Start Date 08/18/2015 Inactive Iron (dried) oral RxNorm: 09957 oral No Start Date 11/02/2015 Inactive timolol 0.5 % Eye Drops RxNorm: 953896 1 Drop(s) OPH daily left eye No Start Date 12/18/2013 Inactive multivitamin Cap RxNorm: 1 Capsule(s) PO daily No Start Date 12/25/2011 Inactive dicyclomine 10 mg Cap RxNorm: 186556 2 Capsule(s) PO daily No Start Date 11/30/2011 Inactive silver sulfadiazine 1 % Topical Cream RxNorm: 872139 TOP apply to affected area with each dressing change No Start Date 12/18/2012 Inactive magnesium oxide 400 mg Tab RxNorm: 687319 1 Tablet(s) PO daily No Start Date 11/02/2015 Inactive Pradaxa 75 mg Cap RxNorm: 5990664 1 Capsule(s) PO BID No Start Date 04/09/2012 Inactive magnesium oxide 400 mg Tab RxNorm: 633701 2 Tablet(s) PO daily magnesium plus zinc No Start Date 12/25/2011 Inactive biotin 1000 mg RxNorm: 1 PO daily No Start Date 12/25/2011 Inactive Synthroid 50 mcg Tab RxNorm: 718876 Tablet(s) PO No Start Date 12/25/2011 Inactive diltiazem ER 180 mg Cap RxNorm: 008919 1 Capsule(s) PO daily No Start Date 12/25/2011 Inactive 1 D 3 1000 iu Oral RxNorm: Oral No Start Date 12/25/2011 Inactive Coumadin 2 mg tablet RxNorm: 300127 Tablet(s) PO No Start Date 04/24/2012 Inactive 5mg tue [id number] mon sat sun(has 2mg and 1 mg tab) dicyclomine 20 mg tablet RxNorm: 662075 Tablet(s) PO No Start Date 04/17/2012 Inactive one ac dinner and up to tid prn lactobacillus acidophilus tablet RxNorm: 1 Tablet(s) PO daily No Start Date 11/03/2015 Inactive Eliquis 2.5 mg tablet RxNorm: 6380089 1 Tablet(s) PO BID No Start Date 07/25/2017 Inactive Levoxyl 75 mcg Tab RxNorm: 838108 1 Tablet(s) PO daily No Start Date 10/02/2011 Inactive digoxin 125 mcg tablet RxNorm: 722585 1 Tablet(s) PO daily No Start Date 03/12/2012 Inactive pantoprazole 40 mg tablet,delayed release RxNorm: 097532 1 Tablet(s) PO BID No Start Date 01/04/2016 Inactive cyclobenzaprine 5 mg tablet RxNorm: 740343 1/2 Tablet(s) PO Q8 PRN No Start Date 10/24/2016 Inactive diltiazem 90 mg Tab RxNorm: 152992 1/2 Tablet(s) PO QPM No Start Date 12/25/2011 Inactive Mirapex 1 mg Tab RxNorm: 250298 1 Tablet(s) PO QHS No Start Date 12/25/2011 Inactive Xanax 0.25 mg tablet RxNorm: 874894 1 Tablet(s) PO Q6 PRN No Start Date 11/10/2013 Inactive Premarin 0.625 mg/gram Vaginal Cream RxNorm: 478509 1 Application VAG 1 applicator per vagina 3 times per week No Start Date 02/19/2012 Inactive Synthroid 75 mcg Tab RxNorm: 878195 1 Tablet(s) PO daily No Start Date 04/17/2012 Inactive lisinopril 40 mg Tab RxNorm: 309337 1 Tablet(s) PO daily No Start Date 12/25/2011 Inactive Glucosamine Chondroitin Complex Advanced [id number]-1.65mg Tab RxNorm: 2 Tablet(s) PO daily No Start Date 08/08/2011 Inactive famotidine 20 mg tablet RxNorm: 707247 1 Tablet(s) PO QAM No Start Date 11/02/2015 Inactive cranberry extract 250 mg Tab RxNorm: 682135 2 Tablet(s) PO daily No Start Date 08/08/2011 Inactive Vitamin D3 1,000 unit capsule RxNorm: 175890 1 Capsule(s) PO daily No Start Date 08/31/2015 Inactive aspirin 81 mg Tab, Delayed Release RxNorm: 792517 1 Tablet(s) PO daily No Start Date 08/31/2015 Inactive diltiazem ER 120 mg capsule,extended release RxNorm: 063654 1 Capsule(s) PO daily patient would like 4 months at a time No Start Date 06/02/2013 Inactive omeprazole 20 mg Tab, Delayed Release RxNorm: 973657 2 Tablet(s) PO QHS No Start Date 2012 Inactive lisinopril 10 mg tablet RxNorm: 059176 1/2 Tablet(s) PO daily No Start Date 10/16/2012 Inactive Pred Forte 1 % Eye Drops RxNorm: 611506 1 Drop(s) OPH daily right eye No Start Date 12/25/2013 Inactive calcium carbonate 400 mg Chewable Tab RxNorm: 454933 1 Tablet(s) PO daily No Start Date 08/08/2011 Inactive Vesicare 10 mg tablet RxNorm: 997678 1 Tablet(s) PO QHS No Start Date 02/12/2012 Inactive Symbicort 160 mcg-4.5 mcg/actuation HFA aerosol inhaler RxNorm: 4291771 2 Puff(s) INH BID No Start Date 12/13/2017 Inactive potassium 99 mg tablet RxNorm: 1 Tablet(s) PO QPM No Start Date 12/25/2013 Inactive timolol 0.25 % Eye Drops RxNorm: 044452 1 Drop(s) OPH daily Left eye No Start Date 04/17/2012 Inactive diltiazem ER 90 mg capsule,extended release 12 hr RxNorm: 137948 1/2 Capsule(s) PO QPM No Start Date 04/28/2014 Inactive cyclobenzaprine 5 mg Tab RxNorm: 459337 1/2-1 Tablet(s) PO Q8 PRN No Start Date 12/25/2011 Inactive 1/2 - 1 tab q 8hrs prn muscle spasms Medication Administered Medication Codes Instructions Start Date Status Influenza Virus Vaccine 0.5 mL RxNorm: 04/23/2013 No longer Active Rocephin 500 mg Solution for Injection RxNorm: 2502403 11/23/2011 No longer Active Immunizations Vaccine Codes [...] hypertension ICD-10: I10 ICD-9: 401.9 01/31/2018 Other half-way (current) drug therapy ICD-10: Z79.899 ICD-9: V58.83 [...] hemorrhoids ICD-10: K64.0 ICD-9: 455.6 03/24/2016 Other long term care social worker (current) drug therapy ICD-10: Z79.899 ICD-9: V58.69 [...] Observation Code Item Item Code Result Date Electrolytes Ord62 NA 132 mEq/L 09/25/2018 Electrolytes Ord62 K 4.1 mEq/L 09/25/2018 Electrolytes Ord62 CL 98 mEq/L 09/25/2018 Electrolytes Ord62 CO2 26.0 mEq/L 09/25/2018 Electrolytes Ord62 ANION GAP 12 09/25/2018 Comp Metabolic Lhi383 NA 130 mEq/L 09/12/2018 Comp Metabolic Jln492 K 4.2 mEq/L 09/12/2018 Comp Metabolic Czd673 CL 98 mEq/L 09/12/2018 Comp Metabolic Xug060 CO2 23.0 mEq/L 09/12/2018 Comp Metabolic Cjl050 ANION GAP 13 09/12/2018 Comp Metabolic Nfa170 GLUCOSE 129 mg/dL 09/12/2018 Comp Metabolic Igz437 Creat 1.0 mg/dL 09/12/2018 Comp Metabolic Oiw758 eGFR 58 ml/min/1.73m2 09/12/2018 Comp Metabolic Vyp614 BUN 28 mg/dL 09/12/2018 Comp Metabolic Hmr609 B/C Ratio 28.9 Ratio 09/12/2018 Comp Metabolic Clq375 CALCIUM 9.1 mg/dL 09/12/2018 Comp Metabolic Oti076 ALK PHOS 59 U/L 09/12/2018 Comp Metabolic Egx564 AST(SGOT) 21 U/L 09/12/2018 Comp Metabolic Oce743 ALT(SGPT) 19 U/L 09/12/2018 Comp Metabolic Oyp868 BILI T 0.8 mg/dL 09/12/2018 Comp Metabolic Zpt475 ALBUMIN 3.9 g/dL 09/12/2018 Comp Metabolic Cwq132 TPRO 6.5 g/dL 09/12/2018 Comp Metabolic Phk438 GLOB 2.6 g/dL 09/12/2018 Comp Metabolic Mpg787 A/G Ratio 1.5 Ratio 09/12/2018 Comp Metabolic Xcc134 Osmo 268 mOsmo 09/12/2018 Tsh Ord6 TSH (3rd IS) 12.84 uIU/mL 09/12/2018 Influenza A+B Izg622 Influ A+B Negative 09/12/2018 Cbc With Differential [...] 12.3 % 09/12/2018 Cbc With Differential Ord2 [place]% 12.0 % 09/12/2018 Cbc With Differential Ord2 [...] 0.85 K/ul 09/12/2018 Cbc With Differential Ord2 [place] ABS# 0.8 K/ul 09/12/2018 Cbc With Differential Ord2 Eos ABS# 0.1 K/ul 09/12/2018 Cbc With Differential Ord2 Baso ABS# 0.0 K/ul 09/12/2018 Free T4 Kem784 FREE T4 1.10 ng/dL 09/12/2018 Free T4 Crs758 FREE T4 1.19 ng/dL 05/08/2018 Digoxin Ord9 DIGOXIN 0.6 NG/ML 05/08/2018 Tsh Ord6 TSH (3rd IS) 10.58 uIU/mL 05/08/2018 Tsh Ord6 TSH (3rd IS) 1.07 uIU/mL 01/31/2018 Free T4 Dda958 FREE T4 1.63 ng/dL 01/31/2018 Digoxin Ord9 DIGOXIN 0.8 NG/ML 01/31/2018 C RAP A SC [id number] Strep A Negative 11/21/2016 Thyroid Antibodies 629145 THYROGLOBULIN ANTIBODY . 11/04/2016 Thyroid Antibodies 373880 THYROGLOBULIN ANTIBODY 919 IU/mL 11/04/2016 Thyroid Antibodies 952869 THYROID PEROXIDASE (TPO) AB . 11/04/2016 Thyroid Antibodies 942970 THYROID PEROXIDASE (TPO) AB 10 IU/mL 11/04/2016 Total T3 Ord42 TT3 0.64 ng/ml 11/03/2016 Free T4 Aga377 FREE T4 1.39 ng/dL 11/02/2016 Tsh Ord6 [...] Differential Ord2 RDW 13.8 % 05/26/2015 Pt Eee9634 PT 25.0 seconds 05/26/2015 Pt Owl3020 INR 2.4 05/26/2015 Pt Yoy7156 Low Intensity - 1.5-2.0 05/26/2015 Pt Ztt7463 Mod intensity - 2.0-3.0 05/26/2015 Pt Tkp1865 Hi intensity - 3.0-4.0 05/26/2015 Uric Acid [...] Digoxin Ord9 DIGOXIN 0.6 NG/ML 05/06/2015 Pt Tlk9215 PT 23.3 seconds 05/06/2015 Pt Zpq6612 INR 2.1 05/06/2015 Pt Nte9172 Low Intensity - 1.5-2.0 05/06/2015 Pt Ihp9336 Mod intensity - 2.0-3.0 05/06/2015 Pt Tfj5069 Hi intensity - 3.0-4.0 05/06/2015 Free T4 Ncd697 FREE T4 1.65 ng/dL 05/06/2015 Comp Metabolic Cyp239 NA 132 mEq/L 05/06/2015 Comp Metabolic Pxw522 K 4.1 mEq/L 05/06/2015 Comp Metabolic Pas036 CL 98 mEq/L 05/06/2015 Comp Metabolic Gnj644 CO2 27.0 mEq/L 05/06/2015 Comp Metabolic Guf685 ANION GAP 11 05/06/2015 Comp Metabolic Ipm051 GLUCOSE 71 mg/dL 05/06/2015 Comp Metabolic Upj063 Creat 0.7 mg/dL 05/06/2015 Comp Metabolic Rsd040 eGFR 82 ml/min/1.73m2 05/06/2015 Comp Metabolic Wrq629 BUN 16 mg/dL 05/06/2015 Comp Metabolic Ygq072 B/C Ratio 22.2 Ratio 05/06/2015 Comp Metabolic Adi937 CALCIUM 9.4 mg/dL 05/06/2015 Comp Metabolic Oat781 ALK PHOS 60 U/L 05/06/2015 Comp Metabolic Jpj668 AST(SGOT) 22 U/L 05/06/2015 Comp Metabolic Zfc677 ALT(SGPT) 24 U/L 05/06/2015 Comp Metabolic Gmk854 BILI T 0.8 mg/dL 05/06/2015 Comp Metabolic Kif645 ALBUMIN 4.3 g/dL 05/06/2015 Comp Metabolic Tep949 TPRO 7.6 g/dL 05/06/2015 Comp Metabolic Taw206 GLOB 3.3 g/dL 05/06/2015 Comp Metabolic Btx301 A/G Ratio 1.3 Ratio 05/06/2015 Comp Metabolic Umf262 Osmo 264 mOsmo 05/06/2015 DIGOXIN 2112945 DIGOXIN 1.1 NG/ML 05/15/2013 PT/MC 6104368 PRO TIME 21.7 SEC 05/15/2013 PT/MC 1871329 INR MCMC 2.0 05/15/2013 CHEM 14 6512836 AST 24 U/L 04/23/2013 CHEM 14 4386723 ALT 31 IU/L 04/23/2013 CHEM 14 6921134 BUN 13 MG/DL 04/23/2013 CHEM 14 0449286 ALBUMIN 4.1 GM/DL 04/23/2013 CHEM 14 3751303 CHLORIDE 103 MMOL/L 04/23/2013 CHEM 14 6510673 BILI TOT 0.5 MG/DL 04/23/2013 CHEM 14 2177687 ALK PHOS 44 U/L 04/23/2013 CHEM 14 0727021 SODIUM 137 MMOL/L 04/23/2013 CHEM 14 9114820 CREATININE 0.61 MG/DL 04/23/2013 CHEM 14 9563910 CALCIUM 9.5 MG/DL 04/23/2013 CHEM 14 6086975 POTASSIUM 4.0 MMOL/L 04/23/2013 CHEM 14 0513846 PROT TOT 6.6 GM/DL 04/23/2013 CHEM 14 1475651 GLUCOSE 99 MG/DL 04/23/2013 CHEM 14 3031404 BICARB 27 MMOL/L 04/23/2013 CHEM 14 6316385 ANION GAP 7 MEQ/L 04/23/2013 GFR CALC 7668273 GFR AA >60 ML/MIN 04/23/2013 GFR CALC 1471822 GFR NON-AA >60 ML/MIN 04/23/2013 TSH 6879720 TSH 4.204 uIU/ML 04/23/2013 CBC 1042736 WBC 6.7 10e9/L 04/23/2013 CBC 2688732 RBC 4.19 10e12/L 04/23/2013 CBC 7773683 HGB 13.2 g/dL 04/23/2013 CBC 7224721 HCT DET 39.2 % 04/23/2013 CBC 5357194 MCV 93.6 fL 04/23/2013 CBC 5757761 MCH 31.5 pg 04/23/2013 CBC 3410007 MCHC 33.7 g/dL 04/23/2013 CBC 2782060 PLT 202 10e9/L 04/23/2013 CBC 6185176 MPV 11.4 fL 04/23/2013 CBC 9638229 YANIRA % 70.5 % 04/23/2013 CBC 2089567 LY % 19.6 % 04/23/2013 CBC 3123737 MON % 8.2 % 04/23/2013 CBC 0371575 EOS % 1.6 % 04/23/2013 CBC 0261901 BASO % 0.1 % 04/23/2013 CBC 4282392 RDW 13.7 % 04/23/2013 CBC 2832753 ABS YANIRA 4.72 10e9/L 04/23/2013 CBC 1028096 ABS LYMPH 1.31 10e9/L 04/23/2013 CBC 8625105 ABS MONO 0.55 10e9/L 04/23/2013 CBC 9033379 ABS EOS 0.11 10e9/L 04/23/2013 CBC 8927654 ABS BASO 0.01 10e9/L 04/23/2013 CBC 9341207 RDW-SD 45.7 fL 04/23/2013 PT/MC 6137745 PRO TIME 13.4 SEC 12/17/2012 PT/MC 9390984 INR MCMC 1.0 12/17/2012 PT/MC 4241408 PRO TIME 16.6 SEC 12/14/2012 PT/MC 9048320 INR MCMC 1.4 12/14/2012 PT/MC 9096598 PRO TIME 27.2 SEC 12/11/2012 PT/MC 1433466 INR MCMC 2.6 12/11/2012 DIGOXIN 6947498 DIGOXIN 2.1 NG/ML 03/08/2012 GFR CALC 7180967 GFR AA >60 ML/MIN 03/08/2012 GFR CALC 5051252 GFR NON-AA >60 ML/MIN 03/08/2012 CHEM 14 20280112 AST 16 U/L 03/08/2012 CHEM 14 20280112 ALT 14 IU/L 03/08/2012 CHEM 14 8962704 BUN 10 MG/DL 03/08/2012 CHEM 14 9091601 ALBUMIN 4.2 GM/DL 03/08/2012 CHEM 14 0170543 CHLORIDE 100 MMOL/L 03/08/2012 CHEM 14 2806427 BILI TOT 0.5 MG/DL 03/08/2012 CHEM 14 1057733 ALK PHOS 59 U/L 03/08/2012 CHEM 14 7790030 SODIUM 136 MMOL/L 03/08/2012 CHEM 14 5907552 CREATININE 0.65 MG/DL 03/08/2012 CHEM 14 1788584 CALCIUM 9.4 MG/DL 03/08/2012 CHEM 14 5071200 POTASSIUM 3.9 MMOL/L 03/08/2012 CHEM 14 20280112 PROT TOT 6.7 GM/DL 03/08/2012 CHEM 14 3137191 GLUCOSE 90 MG/DL 03/08/2012 CHEM 14 6609731 BICARB 30 MMOL/L 03/08/2012 CHEM 14 3328454 ANION GAP 6 MEQ/L 03/08/2012 CHEM 14 7631419 AST 16 U/L 11/23/2011 CHEM 14 6599533 ALT 14 IU/L 11/23/2011 CHEM 14 6311465 BUN 11 MG/DL 11/23/2011 CHEM 14 1832906 ALBUMIN 4.1 GM/DL 11/23/2011 CHEM 14 0370543 CHLORIDE 100 MMOL/L 11/23/2011 CHEM 14 1578463 BILI TOT 0.5 MG/DL 11/23/2011 CHEM 14 3732905 ALK PHOS 50 U/L 11/23/2011 CHEM 14 2998470 SODIUM 135 MMOL/L 11/23/2011 CHEM 14 8760934 CREATININE 0.57 MG/DL 11/23/2011 CHEM 14 2243199 CALCIUM 9.1 MG/DL 11/23/2011 CHEM 14 2028096 POTASSIUM 4.5 MMOL/L 11/23/2011 CHEM 14 1614715 PROT TOT 6.5 GM/DL 11/23/2011 CHEM 14 7494531 GLUCOSE 89 MG/DL 11/23/2011 CHEM 14 9236537 BICARB 28 MMOL/L 11/23/2011 CHEM 14 4009952 ANION GAP 7 MEQ/L 11/23/2011 GFR CALC 1476048 GFR AA >60 ML/MIN 11/23/2011 GFR CALC 2055581 GFR NON-AA >60 ML/MIN 11/23/2011 CBC 6798144 WBC 5.1 10e9/L 11/23/2011 CBC 7570542 RBC 4.06 10e12/L 11/23/2011 CBC 7871131 HGB 12.5 g/dL 11/23/2011 CBC 5730791 HCT DET 37.3 % 11/23/2011 CBC 3831132 MCV 91.9 fL 11/23/2011 CBC 7324591 MCH 30.8 pg 11/23/2011 CBC 8610904 MCHC 33.5 g/dL 11/23/2011 CBC 0678316 PLT 222 10e9/L 11/23/2011 CBC 4750080 MPV 10.8 fL 11/23/2011 CBC 0695016 YANIRA % 64.2 % 11/23/2011 CBC 1774721 LY % 22.3 % 11/23/2011 CBC 4439731 MON % 11.3 % 11/23/2011 CBC 8856210 EOS % 1.8 % 11/23/2011 CBC 1134884 BASO % 0.4 % 11/23/2011 CBC 2136459 RDW 13.6 % 11/23/2011 CBC 0363995 ABS YANIRA 3.27 10e9/L 11/23/2011 CBC 4739749 ABS LYMPH 1.14 10e9/L 11/23/2011 CBC 6098304 ABS MONO 0.58 10e9/L 11/23/2011 CBC 5138837 ABS EOS 0.09 10e9/L 11/23/2011 CBC 2883907 ABS BASO 0.02 10e9/L 11/23/2011 CBC 6654702 RDW-SD 44.5 fL 11/23/2011 UA 07390 Specific [place] 1.005 03/04/2011 UA 50158 PH 6 03/04/2011 UA 99375 GLUCOSE N 03/04/2011 UA 91226 Protein N 03/04/2011 UA 00171 Blood ++ 03/04/2011 UA 32382 Bilirubin N 03/04/2011 UA 89441 Ketones N 03/04/2011 UA 57845 Urobilinogen N 03/04/2011 UA 35837 Nitrite N 03/04/2011 UA 52755 Leukocytes N 03/04/2011 URINALYSIS NONAUTO W/O SCOPE 12866 Specific [place] 1.010 DateTime(Free Text in Aprima) URINALYSIS NONAUTO W/O SCOPE 50502 PH 6.5 DateTime(Free Text in Aprima) URINALYSIS NONAUTO W/O SCOPE 55476 GLUCOSE neg DateTime(Free Text in Aprima) URINALYSIS NONAUTO W/O SCOPE 25190 Protein neg DateTime(Free Text in Aprima) URINALYSIS NONAUTO W/O SCOPE 63624 Blood 3+ DateTime(Free Text in Aprima) URINALYSIS NONAUTO W/O SCOPE 47734 Bilirubin neg DateTime(Free Text in Aprima) URINALYSIS NONAUTO W/O SCOPE 67794 Ketones neg DateTime(Free Text in Aprima) URINALYSIS NONAUTO W/O SCOPE 48306 Urobilinogen neg DateTime(Free Text in Aprima) URINALYSIS NONAUTO W/O SCOPE 86677 Nitrite neg DateTime(Free Text in Aprima) URINALYSIS NONAUTO W/O SCOPE 18869 Leukocytes neg DateTime(Free Text in Aprima) URINALYSIS NONAUTO W/O SCOPE 69752 Specific [place] 1.010 DateTime(Free Text in Aprima) URINALYSIS NONAUTO W/O SCOPE 59107 PH 5 DateTime(Free Text in Aprima) URINALYSIS NONAUTO W/O SCOPE 07457 GLUCOSE neg DateTime(Free Text in Aprima) URINALYSIS NONAUTO W/O SCOPE 97621 Protein neg DateTime(Free Text in Aprima) URINALYSIS NONAUTO W/O SCOPE 13678 Blood 3+ DateTime(Free Text in Aprima) URINALYSIS NONAUTO W/O SCOPE 01548 Bilirubin neg DateTime(Free Text in Aprima) URINALYSIS NONAUTO W/O SCOPE 66928 Ketones neg DateTime(Free Text in Aprima) URINALYSIS NONAUTO W/O SCOPE 72415 Urobilinogen neg DateTime(Free Text in Aprima) URINALYSIS NONAUTO W/O SCOPE 38752 Nitrite neg DateTime(Free Text in Aprima) URINALYSIS NONAUTO W/O SCOPE 38170 Leukocytes neg DateTime(Free Text in Aprima) URINALYSIS NONAUTO W/O SCOPE 70002 Specific [place] 1.005 DateTime(Free Text in Aprima) URINALYSIS NONAUTO W/O SCOPE 05731 PH 8.5 DateTime(Free Text in Aprima) URINALYSIS NONAUTO W/O SCOPE 47586 GLUCOSE neg DateTime(Free Text in Aprima) URINALYSIS NONAUTO W/O SCOPE 55110 Protein neg DateTime(Free Text in Aprima) URINALYSIS NONAUTO W/O SCOPE 14884 Blood 1+ DateTime(Free Text in Aprima) URINALYSIS NONAUTO W/O SCOPE 86596 Bilirubin neg DateTime(Free Text in Aprima) URINALYSIS NONAUTO W/O SCOPE 43940 Ketones neg DateTime(Free Text in Aprima) URINALYSIS NONAUTO W/O SCOPE 03132 Urobilinogen neg DateTime(Free Text in Aprima) URINALYSIS NONAUTO W/O SCOPE 90244 Nitrite neg DateTime(Free Text in Aprima) URINALYSIS NONAUTO W/O SCOPE 73671 Leukocytes neg DateTime(Free Text in Aprima) URINALYSIS NONAUTO W/O SCOPE 12580 Specific [place] 1.005 DateTime(Free Text in Aprima) URINALYSIS NONAUTO W/O SCOPE 74730 PH 7 DateTime(Free Text in Aprima) URINALYSIS NONAUTO W/O SCOPE 11010 GLUCOSE neg DateTime(Free Text in Aprima) URINALYSIS NONAUTO W/O SCOPE 88471 Protein neg DateTime(Free Text in Aprima) URINALYSIS NONAUTO W/O SCOPE 97014 Blood large DateTime(Free Text in Aprima) URINALYSIS NONAUTO W/O SCOPE 10007 Bilirubin neg DateTime(Free Text in Aprima) URINALYSIS NONAUTO W/O SCOPE 77232 Ketones neg DateTime(Free Text in Aprima) URINALYSIS NONAUTO W/O SCOPE 80439 Urobilinogen 0.2 DateTime(Free Text in Aprima) URINALYSIS NONAUTO W/O SCOPE 35582 Nitrite neg DateTime(Free Text in Aprima) URINALYSIS NONAUTO W/O SCOPE 86568 Leukocytes neg DateTime(Free Text in Aprima) URINALYSIS NONAUTO W/O SCOPE 88841 Specific [place] 1.005 DateTime(Free Text in Aprima) URINALYSIS NONAUTO W/O SCOPE 78783 PH 7.5 DateTime(Free Text in Aprima) URINALYSIS NONAUTO W/O SCOPE 49909 GLUCOSE DateTime(Free Text in Aprima) URINALYSIS NONAUTO W/O SCOPE 73283 Protein trace DateTime(Free Text in Aprima) URINALYSIS NONAUTO W/O SCOPE 41999 Blood 4+ DateTime(Free Text in Aprima) URINALYSIS NONAUTO W/O SCOPE 34854 Bilirubin DateTime(Free Text in Aprima) URINALYSIS NONAUTO W/O SCOPE 70429 Ketones DateTime(Free Text in Aprima) URINALYSIS NONAUTO W/O SCOPE 61698 Urobilinogen DateTime(Free Text in Aprima) URINALYSIS NONAUTO W/O SCOPE 85678 Nitrite DateTime(Free Text in Aprima) URINALYSIS NONAUTO W/O SCOPE 86328 Leukocytes trace DateTime(Free Text in Aprima) Review [...] FLU VACC PRSV FREE INC ANTIG CPT-4: 10748 03/27/2017 PPPS, SUBSEQ VISIT CPT- 4: G0439 01/23/2017 URINALYSIS NONAUTO W/O SCOPE CPT-4: 01304 05/17/2016 ADMIN INFLUENZA VIRUS VAC CPT-4: G0008 03/24/2016 FLU VACC PRSV FREE INC ANTIG CPT-4: 21101 03/24/2016 ADMIN PNEUMOCOCCAL VACCINE SNOMED CT: 20931702 CPT-4: G0009 05/13/2015 PNEUMOCOCCAL VACC [address]: 12512109 CPT-4: 60308 05/13/2015 Pneumococcal Polysaccharide Vaccine, 23-Valent, Ad Assigned to/Mela Bledsoe CPT-4: [id number] 07/11/2014 ADMIN PNEUMOCOCCAL VACCINE SNOMED CT: 94430700 CPT-4: G0009 07/11/2014 URINALYSIS NONAUTO W/O SCOPE CPT-4: 52297 05/14/2014 URINALYSIS NONAUTO W/O SCOPE CPT-4: 68542 05/06/2014 URINALYSIS NONAUTO W/O SCOPE CPT-4: 04743 04/29/2014 ADMIN INFLUENZA VIRUS VAC CPT-4: G0008 03/20/2014 FLU VAC NO PRSV 4 SCOTT 3 YRS+ Assigned to/Mela Bledsoe CPT-4: [id number] 03/20/2014 URINALYSIS NONAUTO W/O SCOPE CPT-4: 85204 07/29/2013 URINALYSIS NONAUTO W/O SCOPE CPT-4: 73523 07/01/2013 URINALYSIS NONAUTO W/O SCOPE CPT-4: 96122 06/20/2013 ROUTINE VENIPUNCTURE CPT- 4: 74457 05/15/2013 ROUTINE VENIPUNCTURE CPT- 4: 24500 04/23/2013 ADMIN INFLUENZA VIRUS VAC CPT-4: G0008 04/23/2013 FLULAVAL VACC, 3 YRS & >, IM CPT-4: Q2036 04/23/2013 ROUTINE VENIPUNCTURE CPT- 4: 38247 12/17/2012 ROUTINE VENIPUNCTURE CPT- 4: 95666 12/14/2012 ROUTINE VENIPUNCTURE CPT- 4: 54991 12/11/2012 PRESCRIP TRANSMIT VIA ERX SY CPT-4: G8553 12/11/2012 PRESCRIP TRANSMIT VIA ERX SY CPT-4: G8553 10/30/2012 URINALYSIS NONAUTO W/O SCOPE CPT-4: 04005 09/13/2012 ADMIN INFLUENZA VIRUS VAC CPT-4: G0008 04/18/2012 FLULAVAL VACC, 3 YRS & >, IM CPT-4: Q2036 04/18/2012 URINALYSIS NONAUTO W/O SCOPE CPT-4: 74755 03/13/2012 ROUTINE VENIPUNCTURE CPT- 4: 50374 03/08/2012 URINALYSIS NONAUTO W/O SCOPE CPT-4: 53999 02/13/2012 PRESCRIP TRANSMIT VIA ERX SY CPT-4: G8553 02/13/2012 ROCEPHIN, PER 250 MG CPT- 4: J0696 11/23/2011 ROUTINE VENIPUNCTURE CPT- 4: 31282 11/23/2011 URINALYSIS NONAUTO W/O SCOPE CPT-4: 47692 11/23/2011 PRESCRIP TRANSMIT VIA ERX SY CPT-4: G8553 11/23/2011 REMOVE IMPACTED EAR WAX UNI CPT-4: 64099 10/17/2011 PRESCRIP TRANSMIT VIA ERX SY CPT-4: G8553 10/03/2011 PRESCRIP TRANSMIT VIA ERX SY CPT-4: G8553 08/08/2011 URINALYSIS NONAUTO W/O SCOPE CPT-4: 32993 03/15/2011 URINALYSIS NONAUTO W/O SCOPE CPT-4: 78380 03/04/2011 THER/PROPH/DIAG INJ SC/IM CPT-4: 05000 03/04/2011 ROCEPHIN, PER 250 MG CPT- 4: J0696 03/04/2011 Vital Signs Date Vital 11/30/2018 Blood Pressure 1: 122/64 Code: 8480-6 Height: Weight: 10/31/2018 Blood Pressure 1: 122/66 Code: 8480-6 BMI: 20.5 Code: 15252-3 Heart Rate 1: 83 bpm Height: 5' SpO2: 99% Weight: 105 lbs 10/09/2018 Blood Pressure 1: 126/60 Code: 8480-6 BMI: 19.9 Code: 44382-4 Heart Rate 1: 66 bpm Height: 5' SpO2: 96% Weight: 102 lbs 09/12/2018 Blood Pressure 1: 156/72 Code: 8480-6 BMI: 19.9 Code: 98121-7 Heart Rate 1: 68 bpm Height: 5' Temperature: 36.6 (C) / 97.8 (F) Weight: 102 lbs 08/14/2018 Blood Pressure 1: 136/68 Code: 8480-6 BMI: 21.1 Code: 12942-2 Heart Rate 1: 92 bpm Height: 5' Weight: 108 lbs 07/26/2018 Blood Pressure 1: 128/76 Code: 8480-6 BMI: 21.1 Code: 57507-4 Heart Rate 1: 88 bpm Height: 5' Weight: 108 lbs 06/04/2018 Blood Pressure 1: 124/72 Code: 8480-6 BMI: 21.3 Code: 08133-2 Heart Rate 1: 98 bpm Height: 5' Weight: 109 lbs 01/31/2018 Blood Pressure 1: 116/68 Code: 8480-6 BMI: 21.1 Code: 66227-5 Heart Rate 1: 89 bpm Height: 5' SpO2: 98% Weight: 108 lbs 01/17/2018 Blood Pressure 1: 134/74 Code: 8480-6 BMI: 21.3 Code: 47143-6 Heart Rate 1: 74 bpm Height: 5' SpO2: 96% Waist Measure (cm): 71 cm Weight: 109 lbs 12/14/2017 Blood Pressure 1: 150/78 Code: 8480-6 BMI: 21.5 Code: 60275-6 Heart Rate 1: 77 bpm Height: 5' SpO2: 98% Temperature: 36.7 (C) / 98.1 (F) Weight: 110 lbs 12/07/2017 Blood Pressure 1: 134/70 Code: 8480-6 Heart Rate 1: 76 bpm Height: SpO2: 98% Temperature: 36.8 (C) / 98.2 (F) Weight: 11/14/2017 Blood Pressure 1: 152/84 Code: 8480-6 BMI: 21.9 Code: 03201-2 Heart Rate 1: 95 bpm Height: 5' SpO2: 93% Weight: 112 lbs 03/27/2017 Blood Pressure 1: 122/70 Code: 8480-6 BMI: 21.3 Code: 18108-5 Heart Rate 1: 75 bpm Height: 5' Weight: 109 lbs 01/23/2017 BMI: 21.5 Code: 64229-0 Height: 5' Weight: 110 lbs 01/19/2017 Blood Pressure 1: 112/60 Code: 8480-6 BMI: 21.5 Code: 10344-5 Heart Rate 1: 54 bpm Height: 5' SpO2: 97% Weight: 110 lbs 11/29/2016 Blood Pressure 1: 126/68 Code: 8480-6 Height: 5' Weight: 11/23/2016 Blood Pressure 1: 130/72 Code: 8480-6 BMI: 21.9 Code: 59111-5 Heart Rate 1: 48 bpm Height: 5' SpO2: 97% Temperature: 36.7 (C) / 98.0 (F) Weight: 112 lbs 11/21/2016 Blood Pressure 1: 134/76 Code: 8480-6 BMI: 21.9 Code: 44134-7 Heart Rate 1: 41 bpm Height: 5' SpO2: 94% Temperature: 36.9 (C) / 98.4 (F) Weight: 112 lbs 11/08/2016 Blood Pressure 1: 126/74 Code: 8480-6 Heart Rate 1: 82 bpm Height: 5' SpO2: 94% Weight: 11/02/2016 Blood Pressure 1: 112/66 Code: 8480-6 Heart Rate 1: 72 bpm Height: 5' SpO2: 95% Weight: 10/27/2016 Blood Pressure 1: 130/64 Code: 8480-6 BMI: 21.7 Code: 85645-3 Heart Rate 1: 81 bpm Height: 5' SpO2: 96% Weight: 111 lbs 08/31/2016 Blood Pressure 1: 132/72 Code: 8480-6 BMI: 22.5 Code: 36113-2 Heart Rate 1: 66 bpm Height: 5' Weight: 115 lbs 07/27/2016 Blood Pressure 1: 166/74 Code: 8480-6 BMI: 23.2 Code: 16687-8 Heart Rate 1: 48 bpm Height: 5' SpO2: 90% Temperature: 36.8 (C) / 98.2 (F) Weight: 119 lbs 06/23/2016 Blood Pressure 1: 128/70 Code: 8480-6 BMI: 22.3 Code: 29275-2 Heart Rate 1: 75 bpm Height: 5' SpO2: 97% Weight: 114 lbs 06/09/2016 BMI: 22.7 Code: 38452-6 Heart Rate 1: 73 bpm Height: 5' SpO2: 97% Weight: 116 lbs 05/25/2016 Blood Pressure 1: 138/62 Code: 8480-6 BMI: 22.8 Code: 38378-2 Heart Rate 1: 76 bpm Height: 5' Weight: 117 lbs 05/17/2016 Blood Pressure 1: 116/70 Code: 8480-6 BMI: 22.8 Code: 80228-0 Heart Rate 1: 74 bpm Height: 5' SpO2: 94% Weight: 117 lbs 03/24/2016 Blood Pressure 1: 154/78 Code: 8480-6 BMI: 22.5 Code: 05643-1 Heart Rate 1: 78 bpm Height: 5' SpO2: 97% Weight: 115 lbs 02/02/2016 Blood Pressure 1: 132/70 Code: 8480-6 BMI: 22.3 Code: 91418-0 Heart Rate 1: 74 bpm Height: 5' SpO2: 94% Weight: 114 lbs 2016 Blood Pressure 1: 120/62 Code: 8480-6 BMI: 22.0 Code: 71511-0 Heart Rate 1: 68 bpm Height: 5' Weight: 112 lbs 8 oz 12/21/2015 Blood Pressure 1: 122/82 Code: 8480-6 BMI: 21.9 Code: 45941-4 Heart Rate 1: 83 bpm Height: 5' SpO2: 93% Temperature: 37.1 (C) / 98.7 (F) Weight: 112 lbs 11/03/2015 Blood Pressure 1: 122/72 Code: 8480-6 BMI: 22.4 Code: 79527-8 Heart Rate 1: 62 bpm Height: 5' Weight: 114 lbs 8 oz 10/19/2015 Blood Pressure 1: 138/62 Code: 8480-6 BMI: 21.1 Code: 59868-5 Heart Rate 1: 79 bpm Height: 5' Weight: 108 lbs 10/13/2015 Blood Pressure 1: 120/62 Code: 8480-6 BMI: 21.0 Code: 78023-6 Heart Rate 1: 76 bpm Height: 5' SpO2: 98% Weight: 108 lbs 09/29/2015 Blood Pressure 1: 130/70 Code: 8480-6 BMI: 20.2 Code: 17208-7 Heart Rate 1: 72 bpm Height: 5' Weight: 104 lbs 09/15/2015 Blood Pressure 1: 128/78 Code: 8480-6 BMI: 19.9 Code: 44307-1 Heart Rate 1: 72 bpm Height: 5' Weight: 102 lbs 8 oz 09/01/2015 Blood Pressure 1: 128/68 Code: 8480-6 BMI: 19.8 Code: 32772-4 Height: 5' Weight: 102 lbs 05/26/2015 Blood Pressure 1: 140/68 Code: 8480-6 BMI: 19.0 Code: 66916-5 Heart Rate 1: 70 bpm Height: 5' Weight: 98 lbs 05/21/2015 Blood Pressure 1: 140/78 Code: 8480-6 BMI: 19.2 Code: 93291-7 Heart Rate 1: 85 bpm Height: 5' SpO2: 95% Weight: 99 lbs 05/07/2015 Blood Pressure 1: 140/82 Code: 8480-6 BMI: 19.0 Code: 90846-8 Heart Rate 1: 76 bpm Height: 5' Weight: 98 lbs 03/23/2015 Blood Pressure 1: 142/60 Code: 8480-6 BMI: 18.6 Code: 85169-9 Heart Rate 1: 52 bpm Height: 5' Weight: 96 lbs 03/09/2015 Blood Pressure 1: 138/74 Code: 8480-6 BMI: 18.8 Code: 43763-6 Heart Rate 1: 60 bpm Height: 5' Weight: 97 lbs 10/30/2014 Blood Pressure 1: 112/82 Code: 8480-6 BMI: 19.0 Code: 18235-7 Heart Rate 1: 64 bpm Height: 5' Weight: 98 lbs 07/11/2014 Blood Pressure 1: 146/70 Code: 8480-6 BMI: 18.8 Code: 07068-1 Heart Rate 1: 68 bpm Height: 5' Weight: 97 lbs 05/20/2014 Blood Pressure 1: 142/76 Code: 8480-6 BMI: 18.6 Code: 21940-6 Heart Rate 1: 78 bpm Height: 5' Weight: 96 lbs 04/29/2014 Blood Pressure 1: 138/62 Code: 8480-6 BMI: 18.3 Code: 66319-4 Heart Rate 1: 80 bpm Height: 5' Weight: 94 lbs 8 oz 03/20/2014 Blood Pressure 1: 142/68 Code: 8480-6 BMI: 18.6 Code: 17176-4 Heart Rate 1: 96 bpm Height: 5' Weight: 96 lbs 03/05/2014 Blood Pressure 1: 122/72 Code: 8480-6 BMI: 18.8 Code: 82967-3 Heart Rate 1: 82 bpm Height: 5' SpO2: 97% Weight: 97 lbs 01/29/2014 Blood Pressure 1: 124/78 Code: 8480-6 BMI: 18.8 Code: 95897-1 Heart Rate 1: 60 bpm Height: 5' Weight: 97 lbs 01/14/2014 Blood Pressure 1: 120/58 Code: 8480-6 BMI: 19.2 Code: 37825-1 Heart Rate 1: 56 bpm Height: 5' Temperature: 36.9 (C) / 98.4 (F) Weight: 99 lbs 12/25/2013 Blood Pressure 1: 118/78 Code: 8480-6 BMI: 19.2 Code: 18121-3 Heart Rate 1: 68 bpm Height: 5' Weight: 99 lbs 11/27/2013 Blood Pressure 1: 102/68 Code: 8480-6 BMI: 19.4 Code: 25576-7 Heart Rate 1: 56 bpm Height: 5' Weight: 100 lbs 09/12/2013 Blood Pressure 1: 142/62 Code: 8480-6 BMI: 19.7 Code: 98001-1 Heart Rate 1: 72 bpm Height: 5'1" Weight: 104 lbs 08/15/2013 Blood Pressure 1: 152/92 Code: 8480-6 Heart Rate 1: 96 bpm Weight: 102 lbs 08/01/2013 Blood Pressure 1: 122/68 Code: 8480-6 BMI: 19.1 Code: 21629-6 Heart Rate 1: 68 bpm Height: 5'1" Weight: 101 lbs 07/01/2013 Blood Pressure 1: 130/72 Code: 8480-6 BMI: 19.5 Code: 45453-3 Heart Rate 1: 80 bpm Height: 5'1" Temperature: 36.1 (C) / 97.0 (F) Weight: 103 lbs 05/29/2013 Blood Pressure 1: 126/72 Code: 8480-6 BMI: 19.3 Code: 98467-5 Heart Rate 1: 80 bpm Height: 5'1" Weight: 102 lbs 05/15/2013 Blood Pressure 1: 156/74 Code: 8480-6 BMI: 19.3 Code: 16707-4 Heart Rate 1: 88 bpm Height: 5'1" Weight: 102 lbs 04/23/2013 Blood Pressure 1: 140/82 Code: 8480-6 BMI: 19.3 Code: 97326-2 Heart Rate 1: 72 bpm Height: 5'1" Weight: 102 lbs 03/21/2013 Blood Pressure 1: 142/74 Code: 8480-6 Heart Rate 1: 92 bpm Weight: 103 lbs 01/16/2013 Blood Pressure 1: 120/56 Code: 8480-6 BMI: 20.0 Code: 61161-5 Heart Rate 1: 72 bpm Height: 5'1" Weight: 106 lbs 12/19/2012 Blood Pressure 1: 118/66 Code: 8480-6 Heart Rate 1: 84 bpm Weight: 12/10/2012 Blood Pressure 1: 132/62 Code: 8480-6 Heart Rate 1: 64 bpm Weight: 103 lbs 10/30/2012 Blood Pressure 1: 122/66 Code: 8480-6 BMI: 19.9 Code: 25236-2 Heart Rate 1: 61 bpm Height: 5'1" [...] 1: 118/72 Code: 8480-6 BMI: 21.0 Code: 16841-0 Heart Rate 1: 66 bpm Height: 5'1" Respiratory Rate: 16 bpm Weight: 111 lbs 2012 Blood Pressure 1: 122/62 Code: 8480-6 Heart Rate 1: 68 bpm Weight: 110 lbs 12/01/2011 Blood Pressure 1: 150/60 Code: 8480-6 BMI: 20.8 Code: 24067-0 Heart Rate 1: 60 bpm Height: 5'1" Respiratory Rate: 16 bpm Weight: 110 lbs 11/23/2011 Blood Pressure 1: 170/68 Code: 8480-6 BMI: 21.1 Code: 75561-4 Heart Rate 1: 64 bpm Height: 5'1" Temperature: 36.3 (C) / 97.3 (F) Weight: 111 lbs 8 oz 10/17/2011 Blood Pressure 1: 148/62 Code: 8480-6 Heart Rate 1: 74 bpm 10/03/2011 Blood Pressure 1: 102/48 Code: 8480-6 BMI: 21.4 Code: 54557-8 Heart Rate 1: 76 bpm Height: 5'1" Respiratory Rate: 16 bpm Weight: 113 lbs 08/08/2011 Blood Pressure 1: 128/60 Code: 8480-6 Heart Rate 1: 80 bpm Respiratory Rate: 16 bpm Weight: 113 lbs 05/09/2011 Blood Pressure 1: 130/62 Code: 8480-6 BMI: 20.7 Code: 52691-4 Heart Rate 1: 64 bpm Height: 5'1" Respiratory Rate: 16 bpm Weight: 109 lbs 8 oz 03/29/2011 Blood Pressure 1: 120/62 Code: 8480-6 BMI: 20.2 Code: 18577-2 Heart Rate 1: 66 bpm Height: 5'1" Respiratory Rate: 12 bpm Weight: 107 lbs 03/15/2011 Blood Pressure 1: 120/64 Code: 8480-6 BMI: 19.8 Code: 04282-0 Heart Rate 1: 76 bpm Height: 5'1" [...] contacts 03/20/2014 sat next to neighbor in [place] who had tonsillitis sore throat Pertinent Findings [...] data Encounters Encounter Performer Location Codes Date ([id number]) 58887 EST. PATIENT, LEVEL III Diagnosis: Acute laryngopharyngitis[ICD10: J06.0] [facility] CPT-4: 29866 11/30/2018 ([id number]) 47236 EST. 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 PATIENT, LEVEL III Diagnosis: Raynaud's syndrome without gangrene[ICD10: I73.00] Diagnosis: Pain in left hand[ICD10: M79.642] Diagnosis: Pain in right hand[ICD10: M79.641] Karma Bahena MD, [facility] CPT- 4: 00619 10/09/2018 38318 EST. PATIENT, LEVEL III Diagnosis: Cough[ICD10: R05] Diagnosis: Acute laryngopharyngitis[ICD10: J06.0] Diagnosis: Other allergic rhinitis[ICD10: J30.89] Diagnosis: Raynaud's syndrome without gangrene[ICD10: I73.00] Katharine Bahena MD, [facility] CPT-4: 59228 09/12/2018 ([id number]) 45299 EST. PATIENT, LEVEL IV Diagnosis: Raynaud's syndrome without gangrene[ICD10: I73.00] Diagnosis: Pain in right toe(s)[ICD10: M79.674] Diagnosis: Chronic atrial fibrillation[ICD10: I48.2] Karma Bahena MD, [facility] CPT-4: 12635 08/14/2018 ([id number]) 31862 EST. PATIENT, LEVEL IV Diagnosis: Chronic atrial fibrillation[ICD10: I48.2] Diagnosis: Sebaceous cyst[ICD10: L72.3] Diagnosis: Raynaud's syndrome without gangrene[ICD10: I73.00] Karma Bahena MD, [facility] CPT-4: 53455 07/26/2018 ([id number]) 21416 EST. PATIENT, LEVEL IV Diagnosis: Essential (primary) hypertension[ICD10: I10] Diagnosis: Atrophy of thyroid (acquired)[ICD10: E03.4] Diagnosis: Gastro-esophageal reflux disease without esophagitis[ICD10: K21.9] Karma Bahena MD, [facility] CPT-4: 25779 06/04/2018 ([id number]) 32029 EST. PATIENT, LEVEL IV Diagnosis: Essential (primary) hypertension[ICD10: I10] Diagnosis: Atrophy of thyroid (acquired)[ICD10: E03.4] Diagnosis: Other long term care social worker (current) drug therapy[ICD10: Z79.899] Karma Bahena MD, [facility] CPT-4: 70361 01/31/2018 ([id number]) 30464 EST. PATIENT, LEVEL IV Diagnosis: Essential (primary) hypertension[ICD10: I10] Diagnosis: Chronic atrial fibrillation[ICD10: I48.2] Diagnosis: Allergic rhinitis due to pollen[ICD10: J30.1] Diagnosis: Cough[ICD10: R05] Karma Bahena MD, [facility] CPT-4: 81406 12/14/2017 68362 EST. PATIENT, LEVEL IV Diagnosis: Other allergic rhinitis[ICD10: J30.89] Katharine Bahena MD, [facility] CPT- 4: 26131 12/07/2017 ([id number]) 46849 EST. PATIENT, LEVEL IV Diagnosis: Essential (primary) hypertension[ICD10: I10] Diagnosis: Chronic atrial fibrillation[ICD10: I48.2] Diagnosis: Atrophy of thyroid (acquired)[ICD10: E03.4] Karma Bahena MD, [facility] CPT-4: 88433 11/14/2017 ([id number]) 98370 EST. PATIENT, LEVEL IV Diagnosis: Essential (primary) hypertension[ICD10: I10] Diagnosis: Localized edema[ICD10: R60.0] Diagnosis: Encounter for immunization[ICD10: Z23] Diagnosis: Age-related osteoporosis without current pathological fracture[ICD10: M81.0] Karma Bahena MD, [facility] CPT-4: 82145 03/27/2017 ([id number]) 92194 EST. PATIENT, LEVEL IV Diagnosis: Essential (primary) hypertension[ICD10: I10] Diagnosis: Chronic atrial fibrillation[ICD10: I48.2] Diagnosis: Dysphonia[ICD10: R49.0] Karma Bahena MD, [facility] CPT-4: 67919 01/19/2017 ([id number]) Miscellaneous no charge Diagnosis: Cough[ICD10: R05] Diagnosis: Acute upper respiratory infection, unspecified[ICD10: J06.9] Laura Bahena MD, [facility] CPT-4: 30240 11/29/2016 01955 EST. PATIENT, LEVEL III Diagnosis: Cough[ICD10: R05] Diagnosis: Acute laryngopharyngitis[ICD10: J06.0] Katharine Bahena MD, [facility] CPT- 4: 85429 11/23/2016 ([id number]) 50517 EST. PATIENT, LEVEL III Diagnosis: Acute laryngopharyngitis[ICD10: J06.0] Laura Bahena MD, [facility] CPT-4: 60037 11/21/2016 ([id number]) Miscellaneous no charge Diagnosis: Laceration without foreign body of right forearm, subsequent encounter[ICD10: S51.811D] Karma Bahena MD, [facility] CPT-4: 37439 11/17/2016 ([id number]) Miscellaneous no charge Diagnosis: Laceration without foreign body of right forearm, subsequent encounter[ICD10: S51.811D] Karma Bahena MD [facility] CPT-4: 18626 11/14/2016 ([id number]) Miscellaneous no charge Diagnosis: Laceration without foreign body of right forearm, subsequent encounter[ICD10: S51.811D] Karma Bahena MD [facility] CPT-4: 61715 11/11/2016 ([id number]) Miscellaneous no charge Diagnosis: Laceration without foreign body of right forearm, subsequent encounter[ICD10: S51.811D] Karma Bahena MD, [facility] CPT-4: 09890 11/10/2016 ([id number]) 52917 EST. PATIENT, LEVEL II Diagnosis: Laceration without foreign body of right forearm, subsequent encounter[ICD10: S51.811D] Karma Bahena MD, [facility] CPT-4: 73778 11/08/2016 ([id number]) 37850 EST. PATIENT, LEVEL IV Diagnosis: Atrophy of thyroid (acquired)[ICD10: E03.4] Diagnosis: Chronic atrial fibrillation[ICD10: I48.2] Diagnosis: Laceration without foreign body of right forearm, subsequent encounter[ICD10: S51.811D] Karma Bahena MD [facility] CPT-4: 09587 11/02/2016 ([id number]) 44645 EST. PATIENT, LEVEL III Diagnosis: Laceration without foreign body of right forearm, initial encounter[ICD10: S51.811A] Laura Bahena MD [facility] CPT-4: 57174 10/27/2016 ([id number]) 03748 EST. PATIENT, LEVEL IV Diagnosis: Essential (primary) hypertension[ICD10: I10] Diagnosis: Chronic atrial fibrillation[ICD10: I48.2] Karma Bahena MD [facility] CPT-4: 70502 08/31/2016 ([id number]) 62466 EST. PATIENT, LEVEL IV Diagnosis: Localized edema[ICD10: R60.0] Diagnosis: Essential (primary) hypertension[ICD10: I10] Diagnosis: Abdominal distension (gaseous)[ICD10: R14.0] Karma Bahena MD, [facility] CPT-4: 06174 07/27/2016 ([id number]) 35478 EST. PATIENT, LEVEL IV Diagnosis: Essential (primary) hypertension[ICD10: I10] Diagnosis: Chronic atrial fibrillation[ICD10: I48.2] Diagnosis: Localized edema[ICD10: R60.0] Karma Bahena MD, [facility] CPT-4: 10567 06/23/2016 ([id number]) 82181 EST. PATIENT, LEVEL III Diagnosis: Localized edema[ICD10: R60.0] Karma Bahena MD, [facility] CPT-4: 06135 06/09/2016 ([id number]) 00211 EST. PATIENT, LEVEL III Diagnosis: Irritable bowel syndrome without diarrhea[ICD10: K58.9] Diagnosis: Pruritus ani[ICD10: L29.0] Karma Bahena MD, [facility] CPT-4: 86339 05/25/2016 ([id number]) 37026 EST. PATIENT, LEVEL III Diagnosis: Abdominal distension (gaseous)[ICD10: R14.0] Diagnosis: Encounter for screening mammogram for malignant neoplasm of breast[ICD10: Z12.31] Karma Bahena MD, [facility] CPT-4: 09801 05/17/2016 ([id number]) 97936 EST. PATIENT, LEVEL IV Diagnosis: Essential (primary) hypertension[ICD10: I10] Diagnosis: First degree hemorrhoids[ICD10: K64.0] Diagnosis: Encounter for immunization[ICD10: Z23] Karma Bahena MD, [facility] CPT-4: 54278 03/24/2016 ([id number]) 53601 EST. PATIENT, LEVEL III Diagnosis: Epidermal cyst[ICD10: L72.0] Diagnosis: Essential (primary) hypertension[ICD10: I10] Diagnosis: Chronic atrial fibrillation[ICD10: I48.2] Diagnosis: Other half-way (current) drug therapy[ICD10: Z79.899] Karma Bahena MD, [facility] CPT-4: 07189 02/02/2016 ([id number]) 76560 EST. PATIENT, LEVEL III Diagnosis: Acute anal fissure[ICD10: K60.0] Karma Bahena MD, [facility] CPT-4: 16876 2016 ([id number]) 30565 EST. PATIENT, LEVEL III Diagnosis: Allergic rhinitis due to pollen[ICD10: J30.1] Diagnosis: Acute upper respiratory infection, unspecified[ICD10: J06.9] Laura Bahena MD, [facility] CPT-4: 21265 12/21/2015 ([id number]) 95599 EST. PATIENT, LEVEL III Diagnosis: Essential (primary) hypertension[ICD10: I10] Diagnosis: Chronic atrial fibrillation[ICD10: I48.2] Karma Bahena MD, [facility] CPT-4: 48828 11/03/2015 ([id number]) Miscellaneous no charge Diagnosis: Impacted cerumen, right ear[ICD10: H61.21] Katharine Bahena MD, [facility] CPT-4: 92979 10/19/2015 63739 EST. PATIENT, LEVEL IV Diagnosis: Impacted cerumen, right ear[ICD10: H61.21] Diagnosis: Other allergic rhinitis[ICD10: J30.89] Katharine Bahena MD, [facility] CPT- 4: 64589 10/13/2015 ([id number]) 71426 EST. PATIENT, LEVEL IV Diagnosis: Essential (primary) hypertension[ICD10: I10] Diagnosis: Chronic atrial fibrillation[ICD10: I48.2] Diagnosis: Urge incontinence[ICD10: N39.41] Diagnosis: Age-related osteoporosis without current pathological fracture[ICD10: M81.0] Karma Bahena MD [facility] CPT-4: 05281 09/29/2015 ([id number]) 28900 EST. PATIENT, LEVEL IV Diagnosis: Essential (primary) hypertension[ICD10: I10] Diagnosis: Chronic atrial fibrillation[ICD10: I48.2] Diagnosis: Irritable bowel syndrome without diarrhea[ICD10: K58.9] Diagnosis: Unspecified hemorrhoids[ICD10: K64.9] Karma Bahena MD [facility] CPT-4: 41360 09/15/2015 ([id number]) 47509 EST. 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 PATIENT, LEVEL III Diagnosis: Hematuria, unspecified[ICD10: R31.9] Diagnosis: Other urethritis[ICD10: N34.2] Diagnosis: Other specified noninflammatory disorders of vagina[ICD10: N89.8] Karma Bahena MD, [facility] CPT-4: 16810 05/26/2015 38944 EST. PATIENT, LEVEL IV Diagnosis: Gout, unspecified[ICD10: M10.9] Karma Bahena MD [facility] CPT-4: 94985 05/21/2015 ([id number]) 89808 EST. PATIENT, LEVEL IV Diagnosis: Chronic atrial fibrillation[ICD10: I48.2] Diagnosis: Irritable bowel syndrome without diarrhea[ICD10: K58.9] Diagnosis: Cystocele, unspecified[ICD10: N81.10] Diagnosis: Urge incontinence[ICD10: N39.41] Diagnosis: Fecal smearing[ICD10: R15.1] Diagnosis: Hypothyroidism, unspecified[ICD10: E03.9] Karma Bahena MD [facility] CPT-4: 94889 05/07/2015 ([id number]) 25447 EST. PATIENT, LEVEL III Diagnosis: Atrial fibrillation[ICD9: 427.31] Diagnosis: Bloating[ICD9: 787.3] Karma Bahena MD [facility] CPT-4: 27995 03/23/2015 ([id number]) 67426 EST. PATIENT, LEVEL IV Diagnosis: Abdominal pain[ICD9: 789.00] Diagnosis: Atrial fibrillation[ICD9: 427.31] Diagnosis: ENCNTR LONG-ANTICOAG USE[ICD9: V58.61] Karma Bahena MD [facility] CPT-4: 07821 03/09/2015 ([id number]) 53859 EST. PATIENT, LEVEL IV Diagnosis: HEMATURIA NOS[ICD9: 599.70] Diagnosis: Atrial fibrillation[ICD9: 427.31] Diagnosis: HYPOTHYROIDISM[ICD9: 244.9] Karma Bahena MD [facility] CPT-4: 35316 10/30/2014 ([id number]) 95435 EST. PATIENT, LEVEL IV Diagnosis: Atrial fibrillation[ICD9: 427.31] Diagnosis: ALLERGIC RHINITIS[ICD9: 477.9] Diagnosis: Need for pneumococcal vaccine[ICD9: V03.82] Diagnosis: Osteoarthritis[ICD9: 715.90] Diagnosis: Osteoporosis[ICD9: 733.00] Karma Bahena MD [facility] CPT-4: 87748 07/11/2014 ([id number]) 96636 EST. PATIENT, LEVEL III Diagnosis: Urge incontinence[ICD9: 788.31] Diagnosis: Dysuria[ICD9: 788.1] Karma Bahena MD [facility] CPT-4: 16330 05/20/2014 ([id number]) 59462 EST. PATIENT, LEVEL IV Diagnosis: Atrial fibrillation[ICD9: 427.31] Diagnosis: Hematuria[ICD9: 599.70] Diagnosis: Dysuria[ICD9: 788.1] Diagnosis: ESSENTIAL HYPERTENSION[ICD9: 401.9] Karma Bahena MD, [facility] CPT- 4: 49485 04/29/2014 ([id number]) 46821 EST. PATIENT, LEVEL IV Diagnosis: ESSENTIAL HYPERTENSION[ICD9: 401.9] Diagnosis: ALLERGIC RHINITIS[ICD9: 477.9] Karma Bahena MD [facility] CPT-4: 66202 03/20/2014 ([id number]) 54843 EST. PATIENT, LEVEL IV Diagnosis: ESSENTIAL HYPERTENSION[ICD9: 401.9] Diagnosis: ATRIAL FIBRILLATION[ICD9: 427.31] Diagnosis: Irritable bowel[ICD9: 564.1] Karma Bahena MD [facility] CPT-4: 71191 03/05/2014 ([id number]) 37886 EST. PATIENT, LEVEL IV Diagnosis: Esophageal reflux[ICD9: 530.81] Diagnosis: DIARRHEA[ICD9: 787.91] Diagnosis: ABDOM PAIN NOS SITE[ICD9: 789.00] Karma Bahena MD, [facility] CPT- 4: 90258 01/29/2014 ([id number]) 59064 EST. PATIENT, LEVEL III Diagnosis: Irritable bowel[ICD9: 564.1] Diagnosis: DIARRHEA[ICD9: 787.91] Laura Bahena MD, [facility] CPT-4: 92131 01/14/2014 ([id number]) 03046 EST. PATIENT, LEVEL IV Diagnosis: ESSENTIAL HYPERTENSION[ICD9: 401.9] Diagnosis: ATRIAL FIBRILLATION[ICD9: 427.31] Diagnosis: URGE INCONTINENCE[ICD9: 788.31] Diagnosis: MALAISE AND FATIGUE[ICD9: 780.79] Diagnosis: Dyspnea[ICD9: 786.09] Karma Bahena MD, [facility] CPT-4: 60725 12/25/2013 ([id number]) 02590 EST. PATIENT, LEVEL IV Diagnosis: ESSENTIAL HYPERTENSION[SNOMED: 29663332] Diagnosis: ATRIAL FIBRILLATION[ICD9: 427.31] Diagnosis: Abdominal pain[ICD9: 789.00] Diagnosis: ESOPHAGEAL REFLUX[ICD9: 530.81] Karma Bahena MD, [facility] CPT-4: 15916 11/27/2013 ([id number]) 90374 EST. PATIENT, LEVEL IV Diagnosis: ESSENTIAL HYPERTENSION[SNOMED: 27586284] Diagnosis: ATRIAL FIBRILLATION[ICD9: 427.31] Diagnosis: Chronic osteoarthritis[ICD9: 715.90] Karma Bahena MD, [facility] CPT- 4: 76426 09/12/2013 ([id number]) 62840 EST. PATIENT, LEVEL III Diagnosis: ESSENTIAL HYPERTENSION[SNOMED: 24211455] Diagnosis: Bruising[ICD9: 924.9] Diagnosis: ENCNTR LONG-RX USE NEC[ICD9: V58.69] Karma Bahena MD, [facility] CPT- 4: 70305 08/15/2013 ([id number]) 79786 EST. PATIENT, LEVEL IV Diagnosis: ESSENTIAL HYPERTENSION[SNOMED: 45242547] Diagnosis: Hematuria[ICD9: 599.70] Diagnosis: Dysuria[ICD9: 788.1] Karma Bahena MD [facility] CPT-4: 74114 08/01/2013 ([id number]) 30921 EST. PATIENT, LEVEL III Diagnosis: UTI[ICD9: 599.0] Diagnosis: Hematuria[ICD9: 599.70] Laura Bahena MD, [facility] CPT-4: 48631 07/01/2013 ([id number]) 10180 EST. PATIENT, LEVEL III Diagnosis: ATRIAL FIBRILLATION[ICD9: 427.31] Diagnosis: ESSENTIAL HYPERTENSION[SNOMED: 04301342] Karma Bahena MD [facility] CPT-4: 74910 05/29/2013 ([id number]) 36645 EST. PATIENT, LEVEL IV Diagnosis: Atrial fibrillation[ICD9: 427.31] Diagnosis: Encounter for monitoring digoxin therapy[ICD9: V58.83] Diagnosis: ESSENTIAL HYPERTENSION[SNOMED: 82009747] Karma Bahena MD, [facility] CPT-4: 33194 05/15/2013 ([id number]) 47067 EST. PATIENT, LEVEL IV Diagnosis: ESSENTIAL HYPERTENSION[SNOMED: 14782419] Diagnosis: ATRIAL FIBRILLATION[ICD9: 427.31] Diagnosis: PALPITATIONS[ICD9: 785.1] Diagnosis: Dizziness and giddiness[ICD9: 780.4] Karma Bahena MD [facility] CPT- 4: 24002 04/23/2013 ([id number]) 43918 EST. PATIENT, LEVEL III Diagnosis: OTHER CONSTIPATION[ICD9: 564.09] Diagnosis: ABDOM PAIN NOS SITE[ICD9: 789.00] Laura Bahena MD [facility] CPT- 4: 87367 03/21/2013 ([id number]) 98852 EST. PATIENT, LEVEL IV Diagnosis: ESSENTIAL HYPERTENSION[SNOMED: 86918282] Diagnosis: Atrial fibrillation[ICD9: 427.31] Karma Bahena MD [facility] CPT- 4: 73344 01/16/2013 ([id number]) Miscellaneous no charge Diagnosis: CELLULITIS OF HAND[ICD9: 682.4] Karma Bahena MD [facility] CPT-4: 26527 12/19/2012 ([id number]) Miscellaneous no charge Diagnosis: ENCOUNTER FOR THERAPEUTIC DRUG MONITORING[ICD9: V58.83] Diagnosis: CELLULITIS OF HAND[ICD9: 682.4] Karma Bahena MD [facility] CPT-4: 75857 12/14/2012 Miscellaneous no charge Diagnosis: CELLULITIS OF HAND[ICD9: 682.4] Karma Bahena MD [facility] CPT-4: 42894 12/12/2012 95677 EST. PATIENT, LEVEL II Diagnosis: CELLULITIS OF HAND[ICD9: 682.4] Diagnosis: ENCNTR LONG-RX USE NEC[ICD9: V58.69] Diagnosis: LONG-TERM USE ANTICOAGUL[ICD9: V58.61] Karma Bahena MD [facility] CPT-4: 14336 12/11/2012 ([id number]) 96354 EST. PATIENT, LEVEL III Diagnosis: CELLULITIS OF HAND[ICD9: 682.4] Karma Bahena MD [facility] CPT-4: 99192 12/10/2012 ([id number]) 31373 EST. PATIENT, LEVEL IV Diagnosis: Elevated digoxin level[ICD9: 796.0] Diagnosis: ATRIAL FIBRILLATION[ICD9: 427.31] Diagnosis: Inflammatory arthritis[ICD9: 714.9] Karma Bahena MD, [facility] CPT- 4: 15645 10/30/2012 ([id number]) 79151 EST. PATIENT, LEVEL IV Diagnosis: Atrial fibrillation[ICD9: 427.31] Diagnosis: Anticoagulant long-term use[ICD9: V58.61] Diagnosis: ESSENTIAL HYPERTENSION[SNOMED: 42191399] Karma Bahena MD [facility] CPT-4: 40589 08/08/2012 ([id number]) 41717 EST. PATIENT, LEVEL IV Diagnosis: ABDOM PAIN NOS SITE[ICD9: 789.00] Diagnosis: Constipation - functional[ICD9: 564.09] Diagnosis: EDEMA[ICD9: 782.3] Diagnosis: ATRIAL FIBRILLATION[ICD9: 427.31] PARVEEN Freitas MD CPT- 4: 83971 07/11/2012 ([id number]) 96508 EST. PATIENT, LEVEL III Diagnosis: Cystocele[ICD9: 618.01] Diagnosis: Rectocele[ICD9: 618.04] PARVEEN Freitas MD CPT-4: 84394 05/08/2012 ([id number]) 75320 EST. 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 PATIENT, LEVEL IV Diagnosis: ATRIAL FIBRILLATION[ICD9: 427.31] Diagnosis: URGE INCONTINENCE[ICD9: 788.31] Diagnosis: MALAISE AND FATIGUE[ICD9: 780.79] Diagnosis: Dyspnea[ICD9: 786.09] [facility] CPT-4: 00959 02/20/2012 33845 EST. PATIENT, LEVEL IV Diagnosis: Hematuria[ICD9: 599.70] Diagnosis: Vaginal yeast infection[ICD9: 112.1] Diagnosis: ATRIAL FIBRILLATION[ICD9: 427.31] Laura Bahena MD [facility] CPT- 4: 54090 02/13/2012 ([id number]) 07447 EST. PATIENT, LEVEL IV Diagnosis: Atrial fibrillation[ICD9: 427.31] Diagnosis: Anticoagulation goal of INR 2 to 3[ICD9: V58.83] Diagnosis: Urinary incontinence, urge[ICD9: 788.31] Diagnosis: ESSENTIAL HYPERTENSION[SNOMED: 28434362] Karma Bahena MD [facility] CPT-4: 21459 02/01/2012 ([id number]) 27154 EST. PATIENT, LEVEL IV Diagnosis: Atrial fibrillation[ICD9: 427.31] Diagnosis: Anticoagulant long-term use[ICD9: V58.61] Diagnosis: ESSENTIAL HYPERTENSION[SNOMED: 82660004] Karma Bahena MD [facility] CPT-4: 08496 2012 67329 EST. PATIENT, LEVEL IV Diagnosis: UTI[ICD9: 599.0] Diagnosis: ESSENTIAL HYPERTENSION[SNOMED: 62426864] Diagnosis: MALAISE AND FATIGUE[ICD9: 780.79] Diagnosis: Esophageal reflux[ICD9: 530.81] Karma Bahena MD [facility] CPT-4: 04000 12/01/2011 ([id number]) 98551 EST. PATIENT, LEVEL IV Diagnosis: UTI (urinary tract infection)[ICD9: 599.0] Diagnosis: ESSENTIAL HYPERTENSION[SNOMED: 11591313] Diagnosis: URGE INCONTINENCE[ICD9: 788.31] Karma Bahena MD [facility] CPT-4: 48230 11/23/2011 ([id number]) 07069 EST. PATIENT, LEVEL IV Diagnosis: ESSENTIAL HYPERTENSION[SNOMED: 95181597] Diagnosis: IMPACTED CERUMEN[ICD9: 380.4] Diagnosis: MALAISE AND FATIGUE[ICD9: 780.79] Diagnosis: EDEMA[ICD9: 782.3] Karma Bahena MD [facility] CPT-4: 92137 10/03/2011 75091 EST. PATIENT, LEVEL IV Diagnosis: ESSENTIAL HYPERTENSION[SNOMED: 07503799] Diagnosis: Generalized osteoarthritis[ICD9: 715.09] Diagnosis: OSTEOPOROSIS[ICD9: 733.00] Karma Bahena MD, [facility] CPT-4: 48382 08/08/2011 43846 EST. PATIENT, LEVEL IV Diagnosis: Muscle cramp[ICD9: 729.82] Diagnosis: Torticollis[ICD9: 723.5] Diagnosis: Rash[ICD9: 782.1] Karma Bahena MD, [facility] CPT-4: 84030 05/09/2011 33620 EST. PATIENT, LEVEL IV Diagnosis: Leg cramps, sleep related[ICD9: 327.52] Diagnosis: Underweight[ICD9: 783.22] [facility] CPT-4: 29537 03/29/2011 33074 EST. PATIENT, LEVEL IV Diagnosis: UTI[ICD9: 599.0] Diagnosis: Urge incontinence[ICD9: 788.31] Diagnosis: Loss of weight[ICD9: 783.21] Diagnosis: Palpitations[ICD9: 785.1] Diagnosis: Peripheral neuropathy, idiopathic[ICD9: 356.9] Karma Bahena MD, [facility] CPT-4: 51780 03/15/2011 Plan of Care Planned Activity Notes Codes Status Date Visit Plan: Pharyngitis-Discussed natural and expected course of this diagnosis and need to alert me if symptoms do not follow expected course, or if any worse. Recommended salt water gargles as needed for pain. Ty lenol/motrin as needed for fever/discomfort. 11/30/2018 Patient Education: Patient Medication Summary Completed 11/30/2018 Care Plan: Giovani BAUTISTA Pending 11/30/2018 Appointment: Karma Bahena WPtel: [address] [place], [place] [id number] (15 min) Moderate 11/14/2018 Visit Plan: [...] imvexxy 10/31/2018 Appointment: Karma Bahena WPtel: [phone] [facility] (15 min) Moderate 10/31/2018 Patient Education: Patient Medication Summary Completed 10/31/2018 Visit Plan: Hand pain with arthritis - Raynaud syndrome - discussed with pt - RX for Voltaren gel sent to the pharmacy. continue with amlodipine. 10/09/2018 Appointment: Karma Bahena WPtel: [phone] [facility] (15 min) Moderate 10/09/2018 Patient Education: Patient Medication Summary Completed 10/09/2018 Appointment: Karma Bahena WPtel: [phone] [facility] [place] (15 min) Moderate 10/01/2018 Visit Plan: URI [...] concerns. 09/12/2018 Appointment: Katharine Dai WPtel: [phone] [facility] [place] (15 min) Moderate 09/12/2018 Patient Education: Patient Medication Summary Completed 09/12/2018 Appointment: Karma Bahena WPtel: [phone] [facility] (15 min) Moderate 08/16/2018 Visit Plan: I [...] surgically removed. 08/14/2018 Appointment: Karma Bahena WPtel: [facility]5 [facility] (15 min) Moderate 08/14/2018 Patient Education: Patient [...] surgically removed. 07/26/2018 Appointment: [phone] (15 min) Moderate 07/26/2018 Patient Education: [...] not improving. 06/04/2018 Appointment: Karma Bahena WPtel: [phone] [facility] (15 min) Moderate 06/04/2018 Patient Education: Patient Medication Summary Completed 06/04/2018 Appointment: Karma Bahena WPtel: [phone] [facility] (15 min) Moderate 03/14/2018 Visit Plan: Hypertension [...] 3 months or q 6 m [facility] based on previous levels of control. 01/31/2018 Appointment: Kath[facility] Dai [facility]el[phone] [facility] - Annual Wellness Visit 01/31/2018 Patient [...] allergy spray. 12/14/2017 Appointment: Karma Bahena WPtel: [address] [place], [place] [address] (15 min) Moderate 12/14/2017 Patient Education: Patient [...] allergy spray. 12/07/2017 Appointment: Katharine Dai WPtel: [address] [place] [address] (15 min) Moderate 12/07/2017 Patient Education: Patient [...] 3 months or q 6 m [facility] based on previous levels of control. 11/14/2017 Appointment: Karma Bahena WPtel: [address] [place], [place] [phone] (15 min) Moderate 11/14/2017 Patient Education: Patient [...] shot today. 03/27/2017 Appointment: Karma Bahena WPtel: [facility]2 [place] [address] (15 min) Moderate 03/27/2017 Patient Education: Patient [...] care surrogate. 01/23/2017 Appointment: Katharine Dai WPtel: [facility]5 [id number] [place] [address] - Annual Wellness Visit 01/23/2017 Patient Education: [...] becoming uncontrolled. 01/19/2017 Appointment: [facility]Ptel[phone] (15 min) Moderate 01/19/2017 Patient Education: Patient Medication Summary Completed 01/19/2017 Care Plan: Referral Order SNOMED-CT : [id number] Pending 01/19/2017 Appointment: Kar[facility] Bahena [facility]Ptel[phone] (15 min) Moderate 01/04/2017 Appointment: [place]: [phone] [facility] (15 min) Moderate 12/28/2016 Visit Plan: WCK-omngr-mjb zpack-call if symptoms do not resolve or if any worse. Patient verbalized understanding of plan. 11/29/2016 Appointment: Laura Colin WPtel: [facility]5 [phone] (15 min) Moderate 11/29/2016 Patient Education: Patient [...] patient's pharmacy. 11/23/2016 Appointment: Katharine Dai WPtel: [facility] (15 min) Moderate 11/23/2016 Patient Education: Patient Medication Summary Completed 11/23/2016 Visit Plan: Pharyngitis-Discussed natural and expected course of this diagnosis and need to alert me if symptoms do not follow expected course, or if any worse. Recommended salt water gargles as needed for pain. Ty lenol/motrin as needed for fever/discomfort. 11/21/2016 Appointment: Laura Colin WPtel: [facility]6 [phone] (15 min) Moderate 11/21/2016 Patient Education: Patient [...] monitor symptoms. 11/08/2016 Appointment: Kar[facility] Bahena WPtel[phone] [place] (10 min) Simple 11/08/2016 Patient Education: [...] etc. 11/02/2016 Appointment: Karma Bahena WPtel: [phone] [place] (15 min) Moderate 11/02/2016 Appointment: Nurse Visit 11/02/2016 Patient Education: Patient Medication Summary Completed 11/02/2016 Appointment: Nurse Visit 10/31/2016 Visit Plan: Laceration-right forearm- Pt was instructed to keep the wound clean, cleanse with sterile saline, use bactroban ointment, call if redness, pustular drainage, or any other acute concerns. Follow up Monday for dressing changes. 10/27/2016 Appointment: Laura Colin WPtel: [phone] [place] (30 min) Complex 10/27/2016 Patient Education: [...] in symptoms. 08/31/2016 Appointment: Karma Bahena WPtel: [phone] [facility] (15 min) Moderate 08/31/2016 Patient Education: Patient [...] your swelling. 07/27/2016 Appointment: Karma Bahena WPtel: [facility]5 [facility] (15 min) Moderate 07/27/2016 Patient Education: Patient [...] of lasix 06/23/2016 Appointment: Karma Bahena WPtel: [facility] (15 min) Moderate 06/23/2016 Patient Education: Patient Medication Summary Completed 06/23/2016 Patient Education: Hypertension Completed 06/23/2016 Visit Plan: Edema - with Dyspnea - RX for laxis and compression socks - pt to call if not improving. 06/09/2016 Appointment: Karma Bahena WPtel: [facility]4 [facility] (15 min) Moderate 06/09/2016 Patient Education: Patient Medication Summary Completed 06/09/2016 Visit Plan: Abdominal pain and rectal itching - recommended pt to use betamethasone on vaginal/rectal region, monitor symptoms call if not improving. Continue with beano and simethicone 05/25/2016 Appointment: Karma Bahena WPtel: [facility]3 [facility] (15 min) Moderate 05/25/2016 Patient Education: Patient Medication Summary Completed 05/25/2016 Care Plan: SCREENINGMAMMOGRAPHYDIGITAL LOINC : 76363-7 Pending 05/20/2016 Visit Plan: Abdominal distension - use simethicone four times daily - after meals - if it does not help - in the next two weeks - call the office and we will do a ct scan of the abdomen and pelvis 05/17/2016 Appointment: Karma Bahena WPtel: [facility]0 [facility] (15 min) Moderate 05/17/2016 Patient Education: Patient [...] steroid ointment 03/24/2016 Appointment: Karma Bahena WPtel: [facility] (30 min) Complex 03/24/2016 Patient Education: [...] allergy spray. 12/21/2015 Appointment: Laura Colin WPtel: [phone] [phone] (30 min) Complex 12/21/2015 Patient Education: Patient [...] becoming uncontrolled. 11/03/2015 Appointment: Karma Bahena WPtel: [phone] [facility] (15 min) Moderate 11/03/2015 Patient Education: Patient [...] had left kidney and ureter removed in [place]-doing well 09/01/2015 Appointment: (30 min) Complex 09/01/2015 Patient Education: Patient Medication Summary Completed 09/01/2015 Patient Education: Hypertension Completed 09/01/2015 Appointment: Karma Bahena WPtel: [address] [place] [address] (15 min) Moderate 07/13/2015 Visit Plan: Hematuria/Urethritis [...] 05/13/2015 Care Plan: Referral Order SNOMED-CT : [id number] Ordered 05/08/2015 Visit Plan: Atrial Fibrillation - [...] Dr. Collins. 05/07/2015 Appointment: Karma Bahena WPtel: [address] [place] [address] (15 min) Moderate 05/07/2015 Patient Education: Patient [...] becoming uncontrolled. 10/30/2014 Appointment: Karma Bahena WPtel: [address] [place], [place] [address] Follow up 10/30/2014 Patient Education: Patient Medication Summary Completed 10/30/2014 Appointment: Karma Bahena WPtel: [address] [place], [place] [address] Follow up 07/22/2014 Visit Plan: Atrial Fibrillation [...] in hospital. 07/11/2014 Appointment: Karma Bahena WPtel: [address] [place], [place] [phone] Sick 07/11/2014 Patient Education: Patient Medication Summary Completed 07/11/2014 Appointment: Karma Bahena WPtel: [address] [place], [place] [phone] Follow up 07/07/2014 Visit Plan: Urinary incontinence and recurrent UTI's - doctor will refer to Dr. Joel Collins - for nonsurgical intervention for potential electrical stimulation/training of pelvic floor muscles - for strengthening - can start on the treatment when you get back from [place] - will also ask him about doing a cystoscopy to look into bladder to see if there is any bladder irritation. keep using the Premarin - use about 25Cent size of cream onto finger to apply to urethra and do this three times weekly. 05/20/2014 Appointment: Karma Bahena WPtel: [phone] Follow up 05/20/2014 Patient Education: Patient Medication Summary Completed 05/20/2014 Appointment: Karma Bahena WPtel: [phone] [place] Lab Draw 05/14/2014 Patient Education: Patient [...] vesicare. 04/29/2014 Appointment: Karma Bahena WPtel: [phone] Follow up 04/29/2014 Patient Education: Patient [...] spray. 03/20/2014 Appointment: Karma Bahena WPtel: [phone] [facility] 03/20/2014 Patient Education: Patient Medication Summary Completed [...] becoming uncontrolled. 03/05/2014 Appointment: Karma Bahena WPtel: [facility] Follow up 03/05/2014 Patient Education: Patient [...] with report. 01/29/2014 Appointment: Karma Bahena WPtel: [phone] [facility] Follow up 01/29/2014 Patient Education: Patient [...] exposure,and dyspnea on exertion - will ask [facility] do an overnight oxygen study on [place] as she has cardiac history, weight loss, and nocturnal hypoxemia may be a part of her weight loss and fatigue. 12/25/2013 Appointment: Karma Bahena WPtel: [phone] Follow up 12/25/2013 Patient Education: Patient [...] daily. 11/27/2013 Appointment: Karma Bahena WPtel: [phone] [facility] Follow up 11/27/2013 Patient Education: Patient [...] heart rate. Osteoarthritis - send pt to [facility] physical [facility] program for strengthening and pain reduction. Hypertension - well controlled - continue with current medications, continue with no added salt diet. Pt has been encouraged to exercise daily. The pt has been advised to call the office if there are any acute concerns about change in blood pressure readings at home. 09/12/2013 Appointment: Karma Bahena WPtel: [phone] [facility] Follow up 09/12/2013 Patient Education: Patient Medication Summary Completed 09/12/2013 Patient Education: Hypertension Completed 09/12/2013 Appointment: Karma Bahena WPtel: [phone] [facility] Follow up 08/21/2013 Visit Plan: Hypertension - [...] coumadin-check PT/INR 08/15/2013 Appointment: Karma Bahena WPtel: [phone] [facility] Follow up 08/15/2013 Patient Education: Patient Medication [...] decrease irritation of urethra. 08/01/2013 Appointment: Karma Bhaena WPtel: [facility] [place] Follow up 08/01/2013 Patient Education: Patient Medication Summary Completed 08/01/2013 Patient Education: Hypertension Completed 08/01/2013 Appointment: Laura Colin WPtel: [facility] [place] Lab Draw 07/29/2013 Patient Education: Patient Medication Summary Completed 07/29/2013 Visit Plan: Osteoporosis-prolia on june 25-patient to let Dr Hansen know 07/01/2013 Appointment: Laura Colin WPtel: [facility] [place] Follow up 07/01/2013 Appointment: Karma Bahena WPtel: [facility] [place] Follow up 07/01/2013 Patient Education: Patient Medication Summary Completed 07/01/2013 Appointment: Karma Bahena WPtel: [facility] [place] Follow up 06/25/2013 Appointment: Karma Bahena WPtel: [facility] [place] Lab Draw 06/20/2013 Patient Education: Patient Medication Summary Completed 06/20/2013 Appointment: Karma Bahena WPtel: [phone] [facility] [place] Lab Draw 06/19/2013 Visit Plan: Atrial [...] home. 05/29/2013 Appointment: Karma Bahena WPtel: [phone] [facility] Follow up 05/29/2013 Patient Education: Patient Medication [...] at home. 05/15/2013 Appointment: Karma Bahena WPtel: [phone] [facility] Other 05/15/2013 Patient Education: Patient Medication Summary [...] shot today. 04/23/2013 Appointment: Karma Bahena WPtel: [facility]5 [facility] Other 04/23/2013 Patient Education: Patient Medication Summary [...] this regimen. 03/21/2013 Appointment: Laura Colin WPtel: [facility]5 [phone] Follow up 03/21/2013 Patient Education: Patient Medication [...] becoming uncontrolled. 01/16/2013 Appointment: Karma Bahena WPtel: [facility]5 [facility] Follow up 01/16/2013 Patient Education: Patient Medication Summary Completed 01/16/2013 Patient Education: Hypertension Completed 01/16/2013 Visit Plan: Wound Instructions - Pt was instruced to keep the wound clean, wash with antibacterial soap, use triple antibiotic ointment, call if redness, pustular drainage, or any other acute conerns. 12/19/2012 Appointment: Karma Bahena WPtel: [facility]0 [facility] Other 12/19/2012 Patient Education: Patient Medication Summary Completed 12/19/2012 Patient Education: Patient Medication Summary Completed 12/17/2012 Visit Plan: Cellulitis - improved- monitor symptoms - need to check handon Monday morning. 12/14/2012 Appointment: Karma Bahena WPtel: [address] [place], [place] [phone] Follow up 12/14/2012 Patient Education: Patient Medication Summary Completed 12/14/2012 Visit Plan: Cellulitis - improved- monitor symptoms - need to check handon Monday morning. 12/12/2012 Appointment: Karma Bahena WPtel: [address] [place], [place] [phone] Work-in 12/12/2012 Patient Education: Patient Medication Summary [...] warmth, discharge. 12/10/2012 Appointment: Karma Bahena WPtel: [address] [place], [place] [phone] Other 12/10/2012 Patient Education: Patient Medication Summary [...] becoming uncontrolled. 10/30/2012 Appointment: Karma Bahena WPtel: [facility] Follow up 10/30/2012 Patient Education: Patient Medication Summary Completed 10/30/2012 Appointment: Laura Colin WPtel: [facility]7 [phone] Lab Draw 09/13/2012 Patient Education: Patient Medication [...] and 3.5. 08/08/2012 Appointment: Karma Bahena WPtel: [facility]3 [address] Other 08/08/2012 Patient Education: Patient Medication Summary [...] this regimen. 07/11/2012 Appointment: Karma Bahena WPtel: [facility]8 [address] swelling, leg edema Other 07/11/2012 Patient Education: [...] medication vaginally. 05/08/2012 Appointment: Karma Bahena WPtel: [phone] [facility] [place] Follow up 05/08/2012 Patient Education: Patient [...] during hospitalization. 04/18/2012 Appointment: Karma Bahena WPtel: [facility] [place] Follow up 04/18/2012 Patient Education: Patient Medication Summary Completed 04/18/2012 Patient Education: High Blood Pressure: Essential Hypertension Completed 04/18/2012 Appointment: Karma Bahena WPtel: [phone] [facility] [place] Follow up 04/09/2012 Appointment: Karma Bahena WPtel: 1012 [facility] [place] Lab Draw 04/04/2012 Appointment: Laura Colin WPtel: [facility] [place] Lab Draw 03/19/2012 Visit Plan: Abdominal [...] Hypertension Completed 03/13/2012 Appointment: Karma Bahena WPtel: [facility] [place] Lab Draw 03/08/2012 Patient Education: Patient [...] cardiac rehab. 02/20/2012 Appointment: Karma Bahena WPtel: [phone] [facility] Other 02/20/2012 Patient Education: Patient Medication [...] becoming uncontrolled. 02/13/2012 Appointment: Laura Colin WPtel: [facility]7 [facility] Other 02/13/2012 Patient Education: Patient Medication Summary Completed 02/13/2012 Appointment: Karma Bahena WPtel: [facility]9 [facility] Lab Draw 02/07/2012 Visit Plan: Atrial Fibrillation [...] medication. 02/01/2012 Appointment: Karma Bahena WPtel: [phone] [facility] Other 02/01/2012 Patient Education: Patient Medication Summary Completed 02/01/2012 Patient Education: High Blood Pressure: Essential Hypertension Completed 02/01/2012 Appointment: Karma Bahena WPtel: [phone] [facility] Lab Draw 01/17/2012 Visit Plan: Atrial Fibrillation [...] at home. 2012 Appointment: Karma Bahena WPtel: [phone] [facility] Other 2012 Patient Education: Patient Medication Summary Completed 2012 Patient Education: High Blood Pressure: Essential Hypertension Completed 2012 Appointment: Karma Bahena WPtel: [phone] [facility] Follow up 12/20/2011 Visit Plan: Dicyclomine up [...] emergency room. 12/01/2011 Appointment: Karma Bahena WPtel: [phone] [facility] Other 12/01/2011 Patient Education: Patient Medication Summary [...] infection resolves. 11/23/2011 Appointment: Laura Colin WPtel: [facility]8 [address] Other 11/23/2011 Patient Education: Patient Medication Summary Completed 11/23/2011 Patient Education: High Blood Pressure: Essential Hypertension Completed 11/23/2011 Visit Plan: Cerumen Impaction - The impacted cerumen was removed with the use of either ear currette alone or in combination with ear curette and water pick. The patient tolerated the procedure without incident and had improvement in hearing 10/17/2011 Appointment: Laura Colin WPtel: [phone] [phone] Other 10/17/2011 Patient Education: Patient Medication Summary [...] by irrigation. 10/03/2011 Appointment: Karma Bahena WPtel: [facility]8 [address] Other 10/03/2011 Patient Education: Patient Medication [...] is evidence. 08/08/2011 Appointment: Karma Bahena WPtel: [address] [place] [address] [place] Other 08/08/2011 Patient Education: Patient Medication Summary Completed 08/08/2011 Patient Education: High Blood Pressure: Essential Hypertension Completed 08/08/2011 Visit Plan: Muscle cramps - the cramps are a little better, continue with the Diltiazem and it is okay to use the over the counter supplement with quinine - but use it sparingly. For the rash, use the prescripti on the urogynaecologist prescribed for the itching , call if the rash is not improved. Torticollis - continue with physical therapy, call if the neck muscles do not continue to show improvement. 05/09/2011 Appointment: Karma Bahena WPtel: [facility]1 [address] Other 05/09/2011 Patient Education: Patient Medication [...] water aerobics. 03/29/2011 Appointment: Karma Bahena WPtel: [address] [place] [address] Other 03/29/2011 Patient Education: Patient Medication Summary Completed 03/29/2011 Appointment: Karma Bahena WPtel: [address] [place] [address] Other 03/17/2011 Visit Plan: UTI - UA negative. Urge incontinence- restart on the vesicare- at 5 mg. Continue to avoid caffinated foods/fluids. Peripheral Neuropathy - per packaging specialist report - Continue with the metanex. Loss of weight - WEIGHT CHECK IN 2 WKS. Palpitations- likely stress induced. If the symptoms worsen, call the office. 03/15/2011 Appointment: Karma Bahena WPtel: [address] [place] [address] Follow up 03/15/2011 Patient Education: Patient Medication [...] clinic with any changes, questions, or concerns. . I have called Dr. Rock about [...] it would need to be surgically removed. strep swab salt water gargle keflex if [...] [place], therefore, would not change the medication. rita tobin hearing aide drying beads - ask your [...] based on previous levels of control. . Hypothyroidism - pt with chronic hypothyroidism, [...] vaginal atrophy - rx for imvexxy . Cellulitis - continue with oral antibiotics [...] pressure or heart rate becoming uncontrolled. . Cerumen Impaction - The impacted cerumen [...] patient stabilized during the removal process. . Abdominal pain and rectal itching - [...] if not improving will consult Dr. Collins. . Cellulitis - improved- monitor symptoms - need to check handon Monday morning. . Cerumen Impaction - The impacted cerumen [...] compression and prn use of lasix . Cellulitis - continue with oral antibiotics as directed, return to clinic as previously directed, call for acute change in symptoms, worsening redness, warmth, discharge. increase the lisinopril to 20mg twice daily [...] use betamethasone ointment on rectal tissue . Edema - with Dyspnea - RX for laxis and compression socks - pt to call if not improving. . ua obtained, no need for culture at this time. Nasal spray- use twice daily, one spray [...] your diet and continue with water aerobics. pt is to stop her omeprazole and [...] and will be called with report. . Hypertension - well controlled - continue [...] their heart rate is becoming uncontrolled. . Allergies - chronic - recommended pt [...] in the nasal steroid allergy spray. . Atrial Fibrillation - pt on chronic [...] - continue with supportive care, bactroban, etc. Miralax- take 1/2 dose daily, and may [...] symptoms not improved on this regimen. . Cellulitis - improved- monitor symptoms - [...] heart rate. Osteoarthritis - send pt to [facility] physical therapy for gereral osteoarhtritis program [...] For the rash, use the prescription the urogynaecologist prescribed for the itching , call if [...] in blood pressure readings at home. . ABE-[id number]-[id number] zpack-call if symptoms do not resolve or if any worse. Patient verbalized understanding of plan. . Gout Attack - Pt complains of [...] avoid caffinated foods/fluids. Peripheral Neuropathy - per packaging specialist report - Continue with the metanex. Loss of weight - WEIGHT CHECK IN 2 WKS. Palpitations- likely stress induced. If the symptoms worsen, call the office. . Hypertension - uncontrolled -per patient's home [...] to help decrease irritation of urethra. . Hand pain with arthritis - Raynaud syndrome - discussed with pt - RX for Voltaren gel sent to the pharmacy. continue with amlodipine. change the thyroid to 1/2 pill on [...] fecal symptoms - referral to Dr. Collins. continue with carafate - use [...] and start on probiotic twice daily. . Atrial Fibrillation - pt on chronic [...] given high dose flu shot today. . Wound Instructions - Pt was instruced to keep the wound clean, wash with antibacterial soap, use triple antibiotic ointment, call if redness, pustular drainage, or any other acute conerns. . Hypertension - well controlled - continue [...] Follow up Monday for dressing changes. . Rocephin 500mg IM . Atrial Fibrillation - pt on chronic [...] for INR is between 2.0 and 3.5. . Atrial Fibrillation - pt on chronic [...] the treatment when you get back from [place] - will also ask him about doing [...] the treatment when you get back from [place] - will also ask him about doing a cystoscopy to look into bladder to see if there is any bladder irritation. keep using the Premarin - use about 25Cent size of cream onto finger to apply to urethra and do this three times weekly. Bowel Regimen stool softener - four at [...] had left kidney and ureter removed in [place]- doing well . Hematuria-positive blood on UA today-plan to [...] their heart rate is becoming uncontrolled. . Hematuria - check UA. Referral to [...] is becoming uncontrolled. Incontinence - recommended vesicare. Return in 10 days for follow up [...] 10mg daily after acute infection resolves. . Osteoporosis-prolia on june 25-patient to let Dr Hansen know . Abdominal pain-N/V-patient acutely ill and requires admission to the hospital for further work up-Dr. Bahena in to evalaute patient as well-Will keep patient NPO for now and plan to check CT scan as well as labs and start patient on intravenous fluids. Patient verbalized understanding of plan. . Hypertension [...] if their heart rate is becoming uncontrolled. pt to have esr, crp, tsh, free [...] exposure,and dyspnea on exertion - will ask [facility] do an overnight oxygen study on [place] as she has cardiac history, weight loss, and nocturnal hypoxemia may be a part of her weight loss and fatigue. . Hypertension - well controlled - continue [...] any worse. RX sent to patient's pharmacy. Elevated digoxin level - pt was recommended [...] if their heart rate is becoming uncontrolled. PT HAS BEEN INSTRUCTED TO START USING [...] scan of the abdomen and pelvis . Atrial Fibrillation - pt on chronic [...] if symptoms not improved on this regimen. strep swab daily anti histamine . Pharyngitis-Discussed [...] continue with rx for prn steroid ointment . Hypertension - well controlled - continue [...] in the nasal steroid allergy spray. . Hematuria/Urethritis - Pt uses Premarin for [...] meds - no change in symptoms. . Atrial Fibrillation - pt on chronic [...] pneumonia vaccine was given in hospital. . Wound care - continue with dressing changes, daily use of bactroban - monitor symptoms. seborrheic Keratosis on left breast . Abdominal [...]
--- OUTSIDE RECORDS SUMMARY | 2018-12-10 17:57 | XMS REPORT | CCD ---
Author Author Laura Colin Organization Karma Bahena MD, [facility] Address [address] [place] [address] Phone Care Team Providers Care Bottle Hop Name Role Phone Karma Bahena PP Unavailable CCM Unavailable Summary Purpose Interface Exchange Insurance Providers Payer name Policy type / Coverage type Covered green party ID Effective Begin Date Effective End Date WPS Medicare Part B Medicare Part B [id number] 2018 Unknown AARP Medicare Part B [id number] 2018 Unknown Family history Sister Diagnosis Age [...] Unknown House 03/15/[address]: 117271447 Never smoker 03/15/2011 Has the patient ever used illegal drugs? Unknown Has never used illegal drugs 03/15/2011 Allergies, Adverse Reactions, Alerts Substance Reaction Codes Entered Date Inactivated Date Status BACTINE RxNorm: 923488 03/04/2011 No Inactive Date Active MICONAZOLE RxNorm: 6932 03/04/2011 No Inactive Date Active NEOSPORIN RxNorm: 664210 03/04/2011 No Inactive Date Active NEOMYCIN RxNorm: 7299 03/04/2011 No Inactive Date Active CORTISPORIN RxNorm: 03146 03/04/2011 No Inactive Date Active bactrim RxNorm: 294316 03/13/2012 No Inactive Date Active AUGMENTIN diarrhea RxNorm: 278052 2016 No Inactive Date Active METRONIDAZOLE Unknown 03/04/2011 No Inactive Date Active NYSTATIN Unknown 03/04/2011 No Inactive Date Active PNEUMOCOCCAL VACCINE Unknown 03/04/2011 No Inactive Date Active Past Medical History Illness Codes Condition Status Onset Date Resolved Date Atrophy of thyroid (acquired) ICD-9: 244.8 ICD-10: [...] ICD-9: 443.0 ICD-10: I73.00 Active 07/26/2018 Unknown Acute laryngopharyngitis ICD-9: 465.0 ICD-10: J06.0 Active 11/21/2016 Unknown Cough ICD-9: 786.2 ICD-10: R05 Active [...] ICD-10: I10 Active 12/25/2013 Unknown 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 ICD-9: V58.83 ICD-10: [...] 706.2 ICD-10: L72.0 Active 02/01/2016 Unknown Other mcfp (current) drug therapy ICD-9: V58.69 ICD-10: Z79.899 [...] Problems Condition Codes Effective Dates Condition Status Atrophy of thyroid (acquired) ICD-9: 244.8 ICD-10: [...] 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 07/26/2018 Active Acute laryngopharyngitis ICD-9: 465.0 ICD-10: J06.0 11/21/2016 Active Cough ICD-9: 786.2 ICD-10: R05 11/23/2016 [...] 401.9 ICD-10: I10 12/25/2013 Active 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 ICD-9: V58.83 ICD-10: [...] ICD-9: 706.2 ICD-10: L72.0 02/01/2016 Active Other mcfp (current) drug therapy ICD-9: V58.69 ICD-10: Z79.899 [...] Start Date Stop Date Status Fill Instructions pantoprazole 40 mg tablet,delayed release RxNorm: 184658 1 TABLET(S) PO DAILY 11/29/2018 11/23/2019 Active cyclobenzaprine 5 mg tablet RxNorm: 801561 1/2 Tablet(s) PO TID TABLET(S) 1/2 TABLET(S) PO Q8 NEEDED MUSCLE SPASMS 10/31/2018 04/28/2019 Active Imvexxy Starter Pack 4 mcg vaginal insert, dose pack RxNorm: 7233884 1 dose VAG BIW 10/31/2018 01/28/2019 Active Voltaren 1 % topical gel RxNorm: 597954 2 Gram(s) TOP QID on left shoulder and bilateral hands 10/17/2018 05/14/2019 Active PA APPROVED UNTIL JUL 09 2019 [id number] amlodipine 5 mg tablet RxNorm: 073850 1/2 TABLET(S) PO DAILY MAY TAKE AN EXTRA 1/2 PILL AT THE END OF THE DAY IF BLOOD PRESSURE IS ELEVATED OVER 140 10/15/2018 02/11/2019 Active Patient requests 90 days supply Voltaren 1 % topical gel RxNorm: 205921 2 Gram(s) TOP QID on left shoulder and bilateral hands 10/09/2018 10/16/2018 Inactive levothyroxine 75 mcg tablet RxNorm: 867941 1 Tablet(s) PO daily 09/19/2018 01/16/2019 Active Keflex 500 mg capsule RxNorm: 681169 1 Capsule(s) PO TID 09/12/2018 09/18/2018 Inactive spironolactone 25 mg tablet RxNorm: 342231 1 Tablet(s) PO BID 08/14/2018 11/06/2019 Active see new directions and quantity cyclobenzaprine 5 mg tablet RxNorm: 202634 Tablet(s) TABLET(S) 1/2 TABLET(S) PO Q8 NEEDED MUSCLE SPASMS 08/14/2018 10/30/2018 Inactive Nitro-Bid 2 % transdermal ointment RxNorm: 735196 1 dime size amount TD BID to fingers and toes 08/14/2018 09/12/2018 Inactive cyclobenzaprine 5 mg tablet RxNorm: 638882 TABLET(S) 1/2 TABLET(S) PO Q8 NEEDED MUSCLE SPASMS 08/06/2018 08/13/2018 Inactive amlodipine 5 mg tablet RxNorm: 284361 1/2 Tablet(s) PO daily may take an extra 1/2 pill at the end of the day if blood pressure is elevated over 140 07/26/2018 10/14/2018 Inactive cefdinir 300 mg capsule RxNorm: 884771 1 Capsule(s) PO BID 06/20/2018 06/26/2018 Inactive cefdinir 300 mg capsule RxNorm: 051582 1 Capsule(s) PO BID 06/20/2018 06/19/2018 Inactive metoprolol succinate ER 50 mg tablet,extended release 24 hr RxNorm: 605155 1.5 Tablet(s) daily 06/15/2018 03/11/2019 Active sucralfate 100 mg/mL oral suspension RxNorm: 054007 2 Teaspoon(s) PO TID as needed with reflux symptoms 06/04/2018 No Stop Date Active Vesicare 10 mg tablet RxNorm: 570781 1 TABLET(S) PO EVERY OTHER DAY 05/14/2018 01/08/2019 Active levothyroxine 50 mcg tablet RxNorm: 430179 1 TABLET(S) PO DAILY 04/30/2018 09/18/2018 Inactive Patient requests 90 days supply spironolactone 25 mg tablet RxNorm: 280133 1 Tablet(s) PO daily 03/14/2018 08/13/2018 Inactive levothyroxine 50 mcg tablet RxNorm: 826559 1 Tablet(s) PO daily 02/01/2018 04/29/2018 Inactive Eliquis 2.5 mg tablet RxNorm: 7400634 1 Tablet(s) PO BID 01/31/2018 02/20/2018 Inactive levothyroxine 50 mcg tablet RxNorm: 668875 1 Tablet(s) PO daily 01/31/2018 01/31/2018 Inactive Eliquis 2.5 mg tablet RxNorm: 1746792 TAKE 1 TABLET BY MOUTH TWICE DAILY 01/23/2018 07/21/2018 Inactive metoprolol succinate ER 50 mg tablet,extended release 24 hr RxNorm: 288337 1 TABLET(S) PO DAILY 01/23/2018 01/30/2018 Inactive metoprolol succinate ER 50 mg tablet,extended release 24 hr RxNorm: 295426 1.5 Tablet(s) daily 01/22/2018 06/14/2018 Inactive lisinopril 20 mg tablet RxNorm: 585456 1/2 Tablet(s) daily 01/19/2018 01/21/2018 Inactive Patient requests 90 days supply Singulair 10 mg tablet RxNorm: 821133 TAKE 1 TABLET BY MOUTH AT BEDTIME 01/18/2018 04/17/2018 Inactive Patient requests 90 days supply Singulair 10 mg tablet RxNorm: 172185 Tablet(s) PO 01/17/2018 01/17/2018 Inactive digoxin 125 mcg tablet RxNorm: 164031 1 TABLET(S) PO DAILY 01/03/2018 12/28/2018 Active Symbicort 160 mcg-4.5 mcg/actuation HFA aerosol inhaler RxNorm: 3445236 2 Puff(s) INH BID 12/14/2017 04/12/2018 Inactive please dispense an aerochamber for patient as well as her symbicort cyclobenzaprine 5 mg tablet RxNorm: 829570 Tablet(s) 1/2 TABLET(S) PO Q8 NEEDED MUSCLE SPASMS 12/14/2017 08/05/2018 Inactive pantoprazole 40 mg tablet,delayed release RxNorm: 058783 1 Tablet(s) PO daily 12/14/2017 11/28/2018 Inactive ProAir RespiClick 90 mcg/actuation breath activated RxNorm: 4624233 1-2 INH QID as needed shortness of breath 12/14/2017 07/11/2018 Inactive cyclobenzaprine 5 mg tablet RxNorm: 379350 1/2 TABLET(S) PO Q8 NEEDED MUSCLE SPASMS 12/08/2017 12/13/2017 Inactive betamethasone dipropionate 0.05 % topical ointment RxNorm: 782957 1 Application TOP TID use topically on the rectal tissue three times daily x 1 week then as needed 11/13/2017 No Stop Date Active Premarin 0.625 mg/gram vaginal cream RxNorm: 886277 1/2 GRAM(S) VAG TIW 11/13/2017 10/30/2018 Inactive cyclobenzaprine 5 mg tablet RxNorm: 608687 1/2 TABLET(S) PO Q8 NEEDED MUSCLE SPASMS 10/17/2017 12/07/2017 Inactive Vesicare 10 mg tablet RxNorm: 138328 1 Tablet(s) PO every other day 10/17/2017 04/14/2018 Inactive lisinopril 20 mg tablet RxNorm: 758446 1 TABLET(S) PO DAILY 10/02/2017 01/18/2018 Inactive Patient requests 90 days supply levothyroxine 75 mcg tablet RxNorm: 799133 1 TABLET(S) PO DAILY 09/25/2017 01/30/2018 Inactive spironolactone 25 mg tablet RxNorm: 719134 1 TABLET(S) PO DAILY 08/16/2017 03/13/2018 Inactive cyclobenzaprine 5 mg tablet RxNorm: 598111 1/2 TABLET(S) PO Q8 NEEDED MUSCLE SPASMS 08/16/2017 10/16/2017 Inactive Eliquis 2.5 mg tablet RxNorm: 3245046 TAKE 1 TABLET BY MOUTH TWICE DAILY 07/26/2017 01/21/2018 Inactive cyclobenzaprine 5 mg tablet RxNorm: 792513 1/2 Tablet(s) PO Q8 as needed muscle spasms 06/19/2017 08/15/2017 Inactive lisinopril 20 mg tablet RxNorm: 578170 1 TABLET(S) PO DAILY 06/12/2017 10/01/2017 Inactive metoprolol succinate ER 50 mg tablet,extended release 24 hr RxNorm: 802434 1 TABLET(S) PO DAILY 04/07/2017 01/01/2018 Inactive spironolactone 25 mg tablet RxNorm: 909439 1 Tablet(s) PO daily 03/27/2017 03/13/2018 Inactive acyclovir 800 mg tablet RxNorm: 227822 1 Tablet(s) PO TID 03/21/2017 03/30/2017 Inactive acyclovir 800 mg tablet RxNorm: 516477 1 Tablet(s) PO TID 03/21/2017 03/20/2017 Inactive levothyroxine 75 mcg tablet RxNorm: 669763 1 Tablet(s) PO daily 03/16/2017 09/11/2017 Inactive spironolactone 25 mg tablet RxNorm: 617060 1 TABLET(S) PO DAILY 02/09/2017 03/26/2017 Inactive lisinopril 20 mg tablet RxNorm: 257928 1 TABLET(S) PO DAILY 01/02/2017 05/31/2017 Inactive Zithromax Z-Claudio 250 mg tablet RxNorm: 032576 1 Tablet(s) PO UD 11/29/2016 12/03/2016 Inactive ZPACK Keflex 500 mg capsule RxNorm: 342794 1 Capsule(s) PO TID 11/23/2016 12/02/2016 Inactive guaifenesin 400 mg tablet RxNorm: 392239 1 Tablet(s) PO Q6 as needed 11/23/2016 11/27/2016 Inactive omeprazole 40 mg capsule,delayed release RxNorm: 705194 1 Capsule(s) PO QPM 11/02/2016 12/13/2017 Inactive digoxin 125 mcg tablet RxNorm: 455003 1 TABLET(S) PO DAILY 10/27/2016 07/23/2017 Inactive cyclobenzaprine 5 mg tablet RxNorm: 458853 1/2 Tablet(s) PO Q8 PRN 10/25/2016 06/18/2017 Inactive prn muscle spasms Augmentin 500 mg-125 mg tablet RxNorm: 322804 1 Tablet(s) PO BID 10/24/2016 11/02/2016 Inactive Lasix 20 mg tablet RxNorm: 842076 Tablet(s) PRN one to two times a week if needed 07/27/2016 No Stop Date Active Patient requests 90 days supply spironolactone 25 mg tablet RxNorm: 013430 1 Tablet(s) PO daily 07/27/2016 02/08/2017 Inactive Diflucan 150 mg tablet RxNorm: 248545 1 Tablet(s) PO daily 07/27/2016 08/02/2016 Inactive lisinopril 20 mg tablet RxNorm: 346389 1 Tablet(s) PO daily 07/12/2016 01/01/2017 Inactive Lasix 20 mg tablet RxNorm: 777747 1 TABLET(S) PO EVERY OTHER DAY EVERY OTHER DAY 06/10/2016 07/26/2016 Inactive Patient requests 90 days supply potassium chloride ER 10 mEq capsule,extended release RxNorm: 743045 1 CAPSULE(S) PO EVERY OTHER DAY 06/10/2016 07/26/2016 Inactive Patient requests 90 days supply potassium chloride ER 10 mEq capsule,extended release RxNorm: 794754 1 Capsule(s) PO every other day 06/09/2016 06/09/2016 Inactive Lasix 20 mg tablet RxNorm: 559070 1 Tablet(s) PO every other day every other day 06/09/2016 06/09/2016 Inactive levothyroxine 88 mcg tablet RxNorm: 013680 1 Tablet(s) PO daily 05/11/2016 11/06/2016 Inactive Premarin 0.625 mg/gram vaginal cream RxNorm: 476328 1/2 Gram(s) VAG TIW 03/24/2016 03/18/2017 Inactive metoprolol succinate ER 50 mg tablet,extended release 24 hr RxNorm: 764554 1 Tablet(s) PO daily 03/24/2016 03/18/2017 Inactive pantoprazole 40 mg tablet,delayed release RxNorm: 851587 1 Tablet(s) PO daily 02/08/2016 11/01/2016 Inactive betamethasone dipropionate 0.05 % topical ointment RxNorm: 647649 1 Application TOP TID use topically on the rectal tissue three times daily x 1 week then as needed 02/02/2016 11/12/2017 Inactive pantoprazole 40 mg tablet,delayed release RxNorm: 122510 1 Tablet(s) PO daily 2016 02/07/2016 Inactive alprazolam 0.25 mg tablet RxNorm: 192219 1 Tablet(s) PO Q6 as needed 12/04/2015 No Stop Date Active Vesicare 10 mg tablet RxNorm: 623318 1 Tablet(s) PO every other day 11/03/2015 10/16/2017 Inactive alprazolam 0.25 mg tablet RxNorm: 265797 1 Tablet(s) PO Q6 as needed 11/03/2015 12/03/2015 Inactive Premarin 0.625 mg/gram vaginal cream RxNorm: 348156 1/2 Gram(s) VAG TIW 11/03/2015 03/23/2016 Inactive levothyroxine 88 mcg tablet RxNorm: 758353 1 Tablet(s) PO daily 11/03/2015 05/10/2016 Inactive Diflucan 150 mg tablet RxNorm: 559535 1 Tablet(s) PO daily 10/19/2015 10/25/2015 Inactive cetirizine 10 mg chewable tablet RxNorm: 0201102 1 Tablet(s) PO daily 10/13/2015 11/11/2015 Inactive cetirizine 10 mg capsule RxNorm: 0381648 1 Capsule(s) PO daily 10/13/2015 11/11/2015 Inactive Vesicare 10 mg tablet RxNorm: 275620 1/2 TABLET(S) PO BID 09/21/2015 11/02/2015 Inactive betamethasone dipropionate 0.05 % topical ointment RxNorm: 457170 1 Application TOP TID use topically on the rectal tissue three times daily x 1 week then as needed 09/15/2015 02/01/2016 Inactive lisinopril 20 mg tablet RxNorm: 605561 1 Tablet(s) PO daily 09/01/2015 07/11/2016 Inactive digoxin 125 mcg tablet RxNorm: 802436 1 Tablet(s) PO daily 09/01/2015 08/25/2016 Inactive Augmentin 500 mg-125 mg tablet RxNorm: 343914 1 Tablet(s) PO TID 05/26/2015 06/04/2015 Inactive Pyridium 200 mg tablet RxNorm: 2403767 1 Tablet(s) PO TID 05/26/2015 05/27/2015 Inactive levothyroxine 88 mcg tablet RxNorm: 257420 1 Tablet(s) PO daily except 1/2 pill on monday and 05/07/2015 11/02/2015 Inactive digoxin 125 mcg tablet RxNorm: 361984 1 Tablet(s) PO daily 05/07/2015 08/31/2015 Inactive lisinopril 20 mg tablet RxNorm: 176141 1 TABLET(S) PO BID 04/13/2015 09/01/2015 Inactive Coumadin 1 mg tablet RxNorm: 309626 1 TABLET(S) PO DAILY 03/31/2015 08/31/2015 Inactive Coumadin 2 mg tablet RxNorm: 770532 4MG IN AM AND 1MG AT NIGHT TABLET(S) PO DAILY DIRECTED. 03/31/2015 08/31/2015 Inactive levothyroxine 88 mcg tablet RxNorm: 904969 1 Tablet(s) PO daily 03/23/2015 05/06/2015 Inactive alprazolam 0.25 mg tablet RxNorm: 004400 Tablet(s) PO 03/23/2015 04/06/2015 Inactive levothyroxine 88 mcg tablet RxNorm: 554989 1 Tablet(s) PO daily 01/28/2015 03/22/2015 Inactive levothyroxine 88 mcg tablet RxNorm: 098365 1 Tablet(s) PO daily 01/28/2015 01/27/2015 Inactive diltiazem ER 120 mg capsule,extended release RxNorm: 659253 1 Capsule(s) PO BID patient would like 4 months at a time 01/06/2015 09/28/2015 Inactive digoxin 125 mcg tablet RxNorm: 382866 Tablet(s) 1 TABLET(S) PO DAILY 12/24/2014 12/23/2014 Inactive pt will be paying palomares (On $4 list)Patient requests 90 days supply digoxin 125 mcg tablet RxNorm: 971832 Tablet(s) 1 TABLET(S) PO DAILY M W F Sat and 2 tabs on T 12/24/2014 05/06/2015 Inactive pt will be paying palomares (On $4 list)Patient requests 90 days supply dicyclomine 20 mg tablet RxNorm: 859016 1 Tablet(s) PO daily 11/17/2014 08/31/2015 Inactive one ac dinner and up to tid prn levothyroxine 88 mcg tablet RxNorm: 046866 1 Tablet(s) PO daily 11/03/2014 01/27/2015 Inactive Premarin 0.625 mg/gram vaginal cream RxNorm: 454075 1 APPLICATION VAG 1 APPLICATOR PER VAGINA 3 TIMES PER WEEK 11/03/2014 07/30/2015 Inactive digoxin 125 mcg tablet RxNorm: 192944 1 TABLET(S) PO DAILY 09/29/2014 12/23/2014 Inactive pt will be paying palomares (On $4 list)Patient requests 90 days supply digoxin 125 mcg tablet RxNorm: 590707 1 TABLET(S) PO DAILY 07/11/2014 04/06/2015 Inactive Vesicare 10 mg tablet RxNorm: 429349 1/2 Tablet(s) PO BID 05/20/2014 05/14/2015 Inactive Levaquin 500 mg tablet RxNorm: 507783 1 Tablet(s) PO daily 05/06/2014 05/08/2014 Inactive take probiotic BID while on ABT Levaquin 500 mg tablet RxNorm: 480760 1 Tablet(s) PO daily 05/02/2014 05/05/2014 Inactive take probiotic BID while on ABT diltiazem ER 120 mg capsule,extended release RxNorm: 927009 1 Capsule(s) PO BID patient would like 4 months at a time 04/29/2014 2015 Inactive Vesicare 10 mg tablet RxNorm: 590669 1/2 Tablet(s) PO BID 04/29/2014 05/19/2014 Inactive lisinopril 20 mg tablet RxNorm: 059344 1 Tablet(s) PO BID 03/20/2014 03/14/2015 Inactive diltiazem 90 mg tablet RxNorm: 761054 1/2 TABLET(S) PO QPM 03/04/2014 04/28/2014 Inactive also 180 q am diltiazem ER 120 mg capsule,extended release RxNorm: 062481 1 Capsule(s) PO daily patient would like 4 months at a time 01/29/2014 04/28/2014 Inactive Vesicare 10 mg tablet RxNorm: 366520 1 Tablet(s) PO QHS 01/14/2014 04/28/2014 Inactive Coumadin 2 mg tablet RxNorm: 659007 4mg in AM and 1mg at night Tablet(s) PO daily as directed. 12/25/2013 03/30/2015 Inactive Metanx 3 mg-35 mg-2 mg tablet RxNorm: 1 Tablet(s) PO daily 12/25/2013 11/02/2015 Inactive digoxin 125 mcg tablet RxNorm: 814070 1 Tablet(s) PO daily 12/25/2013 09/28/2014 Inactive pt will be paying paloma[employer] (On $4 list) Coumadin 2 mg tablet RxNorm: 269065 7.5 wed 5mg other Tablet(s) PO as directed. 12/03/2013 12/24/2013 Inactive omeprazole 20 mg tablet,delayed release RxNorm: 422379 1 Tablet(s) PO BID 11/27/2013 04/28/2014 Inactive Coumadin 2 mg tablet RxNorm: 004145 5 mg daily Tablet(s) PO as directed. 11/26/2013 12/02/2013 Inactive 5 mg daily Xanax 0.25 mg tablet RxNorm: 166953 1 Tablet(s) PO Q6 PRN 11/11/2013 12/25/2013 Inactive alprazolam 0.25 mg tablet RxNorm: 056155 tablet oral 11/11/2013 03/22/2015 Inactive sucralfate 1 gram tablet RxNorm: 341275 1 Tablet(s) PO AC & HS 11/04/2013 11/03/2013 Inactive sucralfate 1 gram tablet RxNorm: 377832 1 Tablet(s) PO AC & HS 11/04/2013 01/02/2014 Inactive Synthroid 100 mcg tablet RxNorm: 209363 1 Tablet(s) PO daily 10/31/2013 10/25/2014 Inactive Synthroid 100 mcg tablet RxNorm: 867412 1 Tablet(s) PO daily 09/30/2013 10/29/2013 Inactive Vesicare 10 mg tablet RxNorm: 400152 1 Tablet(s) PO QHS 09/30/2013 01/13/2014 Inactive Lotemax 0.5 % eye ointment RxNorm: 6118054 ointment opht 09/06/2013 12/10/2013 Inactive levothyroxine 100 mcg tablet RxNorm: 418015 tablet oral 09/05/2013 11/02/2014 Inactive Synthroid 100 mcg tablet RxNorm: 471547 1 Tablet(s) PO daily 09/05/2013 09/29/2013 Inactive Prolia 60 mg/mL Sub-Q Syringe RxNorm: 852270 1 Milliliter(s) SQ 06/25/2013 11/02/2015 Inactive dicyclomine 20 mg tablet RxNorm: 551093 1 Tablet(s) PO daily 06/24/2013 06/18/2014 Inactive one ac dinner and up to tid prn omeprazole 20 mg tablet,delayed release RxNorm: 370072 1 Tablet(s) PO BID 06/24/2013 11/26/2013 Inactive Cipro 500 mg tablet RxNorm: 388489 1 Tablet(s) PO BID 06/20/2013 06/26/2013 Inactive diltiazem ER 120 mg capsule,extended release RxNorm: 812280 1 Capsule(s) PO daily patient would like 4 months at a time 06/03/2013 01/28/2014 Inactive Coumadin 2 mg tablet RxNorm: 791335 as directed Tablet(s) PO as directed. 05/29/2013 11/25/2013 Inactive 5 mg daily Synthroid 88 mcg tablet RxNorm: 908505 1 Tablet(s) PO daily 04/24/2013 04/23/2013 Inactive Synthroid 88 mcg tablet RxNorm: 099121 1 Tablet(s) PO daily 04/24/2013 07/28/2013 Inactive Premarin 0.625 mg/gram vaginal cream RxNorm: 955584 1 Application VAG 1 applicator per vagina 3 times per week 04/23/2013 04/17/2014 Inactive Influenza Virus Vaccine 0.5 mL RxNorm: IM 04/23/2013 04/23/2013 Inactive digoxin 125 mcg tablet RxNorm: 405224 1 Tablet(s) PO daily 02/20/2013 04/20/2013 Inactive pt will be paying palomares (On $4 list) Digox 125 mcg tablet RxNorm: 5136948 tablet oral 02/13/2013 03/20/2014 Inactive digoxin 125 mcg tablet RxNorm: 905893 1 Tablet(s) PO daily 02/13/2013 02/19/2013 Inactive diltiazem 90 mg tablet RxNorm: 558353 1/2 Tablet(s) PO QPM 02/13/2013 02/07/2014 Inactive also 180 q am Levoxyl 75 mcg tablet RxNorm: 682098 1 Tablet(s) PO 01/16/2013 04/23/2013 Inactive Coumadin 2 mg tablet RxNorm: 454548 6mg daily except 3mg on mon and mon Tablet(s) PO 01/15/2013 05/28/2013 Inactive 5 mg daily Coumadin 2 mg tablet RxNorm: 371324 6mg daily Tablet(s) PO 12/21/2012 01/14/2013 Inactive 5 mg daily silver sulfadiazine 1 % Topical Cream RxNorm: 928158 TOP apply to affected area with each dressing change 12/19/2012 12/25/2013 Inactive cephalexin 500 mg tablet RxNorm: 883243 1 Tablet(s) PO TID 12/11/2012 12/17/2012 Inactive digoxin 125 mcg tablet RxNorm: 865079 1 Tablet(s) PO daily 10/30/2012 02/12/2013 Inactive digoxin 125 mcg tablet RxNorm: 120545 2 tab tue one other days Tablet(s) PO daily 10/23/2012 10/29/2012 Inactive lisinopril 10 mg tablet RxNorm: 314083 1 Tablet(s) PO daily 10/17/2012 08/14/2013 Inactive Cipro 500 mg tablet RxNorm: 115952 1 Tablet(s) PO BID 09/13/2012 09/19/2012 Inactive Coumadin 1 mg tablet RxNorm: 796994 1 Tablet(s) PO daily 09/03/2012 09/02/2012 Inactive Coumadin 1 mg tablet RxNorm: 093658 1 Tablet(s) PO daily 09/03/2012 12/21/2012 Inactive Coumadin 2 mg tablet RxNorm: 309145 Tablet(s) PO 07/25/2012 12/20/2012 Inactive 5 mg daily digoxin 125 mcg tablet RxNorm: 131529 1 Tablet(s) PO daily 06/28/2012 10/22/2012 Inactive Coumadin 2 mg tablet RxNorm: 624456 Tablet(s) PO 06/27/2012 07/24/2012 Inactive 5mg daily except 4mg on monday Coumadin 2 mg tablet RxNorm: 494235 Tablet(s) PO 06/19/2012 06/26/2012 Inactive 5mg e mon thur sat sun4mg mon(has 2mg and 1 mg tab) digoxin 125 mcg tablet RxNorm: 549795 1 Tablet(s) PO daily 05/29/2012 06/27/2012 Inactive Coumadin 2 mg tablet RxNorm: 336925 Tablet(s) PO 05/15/2012 06/18/2012 Inactive 5mg tue thur sat sun4mg mon frid(has 2mg and 1 mg tab) Coumadin 2 mg tablet RxNorm: 597080 Tablet(s) PO 04/25/2012 05/14/2012 Inactive 5mg tue thru sat4mg mond sun(has 2mg and 1 mg tab) Metanx 3 mg-35 mg-2 mg tablet RxNorm: 1 Tablet(s) PO BID 04/18/2012 12/24/2013 Inactive dicyclomine 20 mg tablet RxNorm: 021931 1 Tablet(s) PO 04/18/2012 06/23/2013 Inactive one ac dinner and up to tid prn digoxin 125 mcg tablet RxNorm: 461337 Tablet(s) PO daily except .25 on Tuesdays and 04/09/2012 05/28/2012 Inactive omeprazole 20 mg tablet,delayed release RxNorm: 370230 1 Tablet(s) PO BID 04/09/2012 04/03/2013 Inactive digoxin 125 mcg tablet RxNorm: 262972 1 Tablet(s) PO UD daily except none on Tuesdays and 03/13/2012 04/08/2012 Inactive Premarin 0.625 mg/gram Vaginal Cream RxNorm: 895573 1 Application VAG 1 applicator per vagina 3 times per week 02/20/2012 02/13/2013 Inactive omeprazole 20 mg tablet,delayed release RxNorm: 061704 1 Tablet(s) PO BID 02/13/2012 04/08/2012 Inactive Vesicare 10 mg tablet RxNorm: 464710 1 Tablet(s) PO QHS 02/13/2012 02/06/2013 Inactive Diflucan 150 mg tablet RxNorm: 329775 1 Tablet(s) PO daily 02/13/2012 02/19/2012 Inactive omeprazole 20 mg tablet,delayed release RxNorm: 900861 1 Tablet(s) PO BID 01/06/2012 02/12/2012 Inactive Calcium 600 + D(3) 600 mg (1,500)-200 unit Tab RxNorm: 446114 2 Tablet(s) PO BID 01/06/2012 08/31/2015 Inactive diltiazem 90 mg tablet RxNorm: 410669 1/2 Tablet(s) PO QPM 12/26/2011 02/12/2013 Inactive also 180 q am diltiazem ER 180 mg Cap RxNorm: 625802 1 Capsule(s) PO QAM 12/26/2011 04/08/2012 Inactive 45mg q hs Flagyl 500 mg Tab RxNorm: 224288 1 Tablet(s) PO BID 12/14/2011 12/20/2011 Inactive dicyclomine 10 mg Cap RxNorm: 844791 1 Capsule(s) PO AC & HS 12/01/2011 12/25/2011 Inactive Levaquin 500 mg Tab RxNorm: 682627 1 Tablet(s) PO daily 11/23/2011 11/29/2011 Inactive Rocephin 500 mg Solution for Injection RxNorm: 9571060 Inj 11/23/2011 11/23/2011 Inactive acyclovir 400 mg Tab RxNorm: 494340 1 Tablet(s) PO QID 11/10/2011 11/19/2011 Inactive acyclovir 400 mg Tab RxNorm: 146442 1 Tablet(s) PO QID 11/10/2011 11/09/2011 Inactive lisinopril 20 mg Tab RxNorm: 944935 1 Tablet(s) PO daily 10/03/2011 11/27/2011 Inactive lisinopril 20 mg Tab RxNorm: 795582 1 Tablet(s) PO daily 08/08/2011 10/02/2011 Inactive Reclast 5 mg/100 mL IV RxNorm: 087623 Milliliter(s) IV Yearly 06/08/2011 01/16/[address] Hansen manages Rocephin 500 mg Solution for Injection RxNorm: 6718483 1 Milliliter(s) Inj 03/04/2011 08/08/2011 Inactive Ceftin 500 mg Tab RxNorm: 163197 1 Tablet(s) PO BID 03/04/2011 08/08/2011 Inactive Vitamin D3 1,000 unit tablet RxNorm: 807300 2 Tablet(s) PO daily No Start Date Active Stool Softener 100 mg tablet RxNorm: 1016631 2 Tablet(s) PO QHS No Start Date Active Beano tablet RxNorm: 2-3 Tablet(s) PO as needed No Start Date Active Probiotic Pearls 15 mg (1 billion cell) capsule,delayed release RxNorm: 1 Capsule(s) PO daily No Start Date Active Lipitor 10 mg tablet RxNorm: 418638 1 Tablet(s) PO daily No Start Date Active Miralax 17 gram oral powder packet RxNorm: 514468 1/2 packet PO QHS No Start Date Active multivitamin Tab RxNorm: 1 Tablet(s) PO daily No Start Date Active Tylenol Extra Strength 500 mg tablet RxNorm: 081951 2 Tablet(s) PO as needed No Start Date Active Combigan 0.2 %-0.5 % eye drops RxNorm: 456807 1 Drop(s) OPH BID No Start Date Active 1 drop twice daily left eye Lexapro 5 mg tablet RxNorm: 319471 1 Tablet(s) PO daily No Start Date Active Tatiana Allergy 180 mg tablet RxNorm: 448208 1 Tablet(s) PO daily No Start Date Active Lotemax 0.5 % eye drops,suspension RxNorm: 684423 1 Drop(s) OPH right eye BID No Start Date Active Levoxyl 50 mcg tablet RxNorm: 315085 1 Tablet(s) PO daily No Start Date 01/15/2013 Inactive lisinopril-hydrochlorothiazide 20 mg-25 mg Tab RxNorm: 824111 1 Tablet(s) PO daily No Start Date 08/07/2011 Inactive Metanx 3 mg-35 mg-2 mg tablet RxNorm: 1 Tablet(s) PO daily No Start Date 04/17/2012 Inactive diltiazem CD 120 mg capsule,extended release 24 hr RxNorm: 486558 1 Capsule(s) PO daily No Start Date 09/28/2015 Inactive lisinopril 20 mg tablet RxNorm: 546987 Tablet(s) PO No Start Date Active Lumigan 0.01 % Eye Drops RxNorm: 1391516 1 Drop(s) OPH daily Left eye No Start Date 12/10/2013 Inactive prednisolone acetate 1 % Eye Drops, Susp RxNorm: 5545213 1 Drop(s) OPH BID 1 drop right eye am and hs No Start Date 11/02/2015 Inactive Eliquis 5 mg tablet RxNorm: 7534050 1 Tablet(s) PO BID No Start Date 06/08/2016 Inactive potassium gluconate (bulk) Misc RxNorm: Miscellaneous No Start Date 12/25/2011 Inactive Calcium 600 + D(3) 600 mg (1,500)-200 unit Tab RxNorm: 660176 3 Tablet(s) PO daily No Start Date 2012 Inactive Zyrtec 10 mg tablet RxNorm: 6632461 1 Tablet(s) PO daily No Start Date 08/02/2016 Inactive Synthroid 100 mcg tablet RxNorm: 398644 1 Tablet(s) PO daily No Start Date 09/04/2013 Inactive metoprolol succinate ER 50 mg tablet,extended release 24 hr RxNorm: 028250 1 Tablet(s) PO daily No Start Date 03/23/2016 Inactive Carafate 100 mg/mL oral suspension RxNorm: 015723 2 Teaspoon(s) PO as needed with reflux symptoms No Start Date 06/03/2018 Inactive Metanx 3 mg-35 mg-2 mg tablet RxNorm: 1 Tablet(s) PO daily 2pm No Start Date 11/02/2015 Inactive Lexapro 5 mg tablet RxNorm: 697781 1 Tablet(s) PO daily No Start Date 08/18/2015 Inactive Iron (dried) oral RxNorm: 64664 oral No Start Date 11/02/2015 Inactive timolol 0.5 % Eye Drops RxNorm: 039909 1 Drop(s) OPH daily left eye No Start Date 12/18/2013 Inactive multivitamin Cap RxNorm: 1 Capsule(s) PO daily No Start Date 12/25/2011 Inactive dicyclomine 10 mg Cap RxNorm: 295679 2 Capsule(s) PO daily No Start Date 11/30/2011 Inactive silver sulfadiazine 1 % Topical Cream RxNorm: 433537 TOP apply to affected area with each dressing change No Start Date 12/18/2012 Inactive magnesium oxide 400 mg Tab RxNorm: 732706 1 Tablet(s) PO daily No Start Date 11/02/2015 Inactive Pradaxa 75 mg Cap RxNorm: 8829608 1 Capsule(s) PO BID No Start Date 04/09/2012 Inactive magnesium oxide 400 mg Tab RxNorm: 709291 2 Tablet(s) PO daily magnesium plus zinc No Start Date 12/25/2011 Inactive biotin 1000 mg RxNorm: 1 PO daily No Start Date 12/25/2011 Inactive Synthroid 50 mcg Tab RxNorm: 745329 Tablet(s) PO No Start Date 12/25/2011 Inactive diltiazem ER 180 mg Cap RxNorm: 382223 1 Capsule(s) PO daily No Start Date 12/25/2011 Inactive 1 D 3 1000 iu Oral RxNorm: Oral No Start Date 12/25/2011 Inactive Coumadin 2 mg tablet RxNorm: 784034 Tablet(s) PO No Start Date 04/24/2012 Inactive 5mg tue [id number] mon sat sun(has 2mg and 1 mg tab) dicyclomine 20 mg tablet RxNorm: 536586 Tablet(s) PO No Start Date 04/17/2012 Inactive one ac dinner and up to tid prn lactobacillus acidophilus tablet RxNorm: 1 Tablet(s) PO daily No Start Date 11/03/2015 Inactive Eliquis 2.5 mg tablet RxNorm: 1574251 1 Tablet(s) PO BID No Start Date 07/25/2017 Inactive Levoxyl 75 mcg Tab RxNorm: 541248 1 Tablet(s) PO daily No Start Date 10/02/2011 Inactive digoxin 125 mcg tablet RxNorm: 413886 1 Tablet(s) PO daily No Start Date 03/12/2012 Inactive pantoprazole 40 mg tablet,delayed release RxNorm: 415628 1 Tablet(s) PO BID No Start Date 01/04/2016 Inactive cyclobenzaprine 5 mg tablet RxNorm: 354789 1/2 Tablet(s) PO Q8 PRN No Start Date 10/24/2016 Inactive diltiazem 90 mg Tab RxNorm: 453584 1/2 Tablet(s) PO QPM No Start Date 12/25/2011 Inactive Mirapex 1 mg Tab RxNorm: 296351 1 Tablet(s) PO QHS No Start Date 12/25/2011 Inactive Xanax 0.25 mg tablet RxNorm: 136350 1 Tablet(s) PO Q6 PRN No Start Date 11/10/2013 Inactive Premarin 0.625 mg/gram Vaginal Cream RxNorm: 034318 1 Application VAG 1 applicator per vagina 3 times per week No Start Date 02/19/2012 Inactive Synthroid 75 mcg Tab RxNorm: 672917 1 Tablet(s) PO daily No Start Date 04/17/2012 Inactive lisinopril 40 mg Tab RxNorm: 945005 1 Tablet(s) PO daily No Start Date 12/25/2011 Inactive Glucosamine Chondroitin Complex Advanced [id number]-1.65mg Tab RxNorm: 2 Tablet(s) PO daily No Start Date 08/08/2011 Inactive famotidine 20 mg tablet RxNorm: 719470 1 Tablet(s) PO QAM No Start Date 11/02/2015 Inactive cranberry extract 250 mg Tab RxNorm: 668039 2 Tablet(s) PO daily No Start Date 08/08/2011 Inactive Vitamin D3 1,000 unit capsule RxNorm: 991176 1 Capsule(s) PO daily No Start Date 08/31/2015 Inactive aspirin 81 mg Tab, Delayed Release RxNorm: 745061 1 Tablet(s) PO daily No Start Date 08/31/2015 Inactive diltiazem ER 120 mg capsule,extended release RxNorm: 762077 1 Capsule(s) PO daily patient would like 4 months at a time No Start Date 06/02/2013 Inactive omeprazole 20 mg Tab, Delayed Release RxNorm: 733523 2 Tablet(s) PO QHS No Start Date 2012 Inactive lisinopril 10 mg tablet RxNorm: 198934 1/2 Tablet(s) PO daily No Start Date 10/16/2012 Inactive Pred Forte 1 % Eye Drops RxNorm: 765024 1 Drop(s) OPH daily right eye No Start Date 12/25/2013 Inactive calcium carbonate 400 mg Chewable Tab RxNorm: 373776 1 Tablet(s) PO daily No Start Date 08/08/2011 Inactive Vesicare 10 mg tablet RxNorm: 378490 1 Tablet(s) PO QHS No Start Date 02/12/2012 Inactive Symbicort 160 mcg-4.5 mcg/actuation HFA aerosol inhaler RxNorm: 5528962 2 Puff(s) INH BID No Start Date 12/13/2017 Inactive potassium 99 mg tablet RxNorm: 1 Tablet(s) PO QPM No Start Date 12/25/2013 Inactive timolol 0.25 % Eye Drops RxNorm: 065580 1 Drop(s) OPH daily Left eye No Start Date 04/17/2012 Inactive diltiazem ER 90 mg capsule,extended release 12 hr RxNorm: 191196 1/2 Capsule(s) PO QPM No Start Date 04/28/2014 Inactive cyclobenzaprine 5 mg Tab RxNorm: 551187 /2-1 Tablet(s) PO Q8 PRN No Start Date 12/25/2011 Inactive 1/2 - 1 tab q 8hrs prn muscle spasms Medication Administered Medication Codes Instructions Start Date Status Influenza Virus Vaccine 0.5 mL RxNorm: 04/23/2013 No longer Active Rocephin 500 mg Solution for Injection RxNorm: 6411315 11/23/2011 No longer Active Immunizations Vaccine Codes [...] 04/18/2012 completed Assessments Condition Codes Effective Dates Postmenopausal atrophic vaginitis ICD-10: N95.2 ICD-9: 627.3 [...] 09/12/2018 Cough ICD-10: R05 ICD-9: 786.2 09/12/2018 Acute laryngopharyngitis ICD-10: J06.0 ICD-9: 465.0 09/12/2018 Pain in right toe(s) ICD-10: M79.674 ICD-9: 729.5 08/14/2018 Sebaceous cyst ICD-10: L72.3 ICD-9: 706.2 07/26/2018 Encounter for screening mammogram for malignant neoplasm of breast ICD-10: Z12.31 ICD-9: V76.12 06/08/2018 Gastro-esophageal reflux disease without esophagitis ICD-10: K21.9 ICD-9: 530.81 06/04/2018 Essential (primary) hypertension ICD-10: I10 ICD-9: 401.9 01/31/2018 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 ICD-10: Z79.899 ICD-9: [...] ICD-10: K64.0 ICD-9: 455.6 03/24/2016 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 ICD-10: Z79.899 ICD-9: [...] Visit Reason For Visit Effective Dates Notes myalgias 10/31/2018 blood pressure followup 10/09/2018 cough [...] Ord62 ANION GAP 12 09/25/2018 Comp Metabolic Itw578 NA 130 mEq/L 09/12/2018 Comp Metabolic Vir369 K 4.2 mEq/L 09/12/2018 Comp Metabolic Btu222 CL 98 mEq/L 09/12/2018 Comp Metabolic Wpm961 CO2 23.0 mEq/L 09/12/2018 Comp Metabolic Ihr493 ANION GAP 13 09/12/2018 Comp Metabolic Lyz454 GLUCOSE 129 mg/dL 09/12/2018 Comp Metabolic Kym018 Creat 1.0 mg/dL 09/12/2018 Comp Metabolic Oax041 eGFR 58 ml/min/1.73m2 09/12/2018 Comp Metabolic Bju722 BUN 28 mg/dL 09/12/2018 Comp Metabolic Ift489 B/C Ratio 28.9 Ratio 09/12/2018 Comp Metabolic Szm863 CALCIUM 9.1 mg/dL 09/12/2018 Comp Metabolic Tjm207 ALK PHOS 59 U/L 09/12/2018 Comp Metabolic Sds335 AST(SGOT) 21 U/L 09/12/2018 Comp Metabolic Lbg801 ALT(SGPT) 19 U/L 09/12/2018 Comp Metabolic Xhk910 BILI T 0.8 mg/dL 09/12/2018 Comp Metabolic Onf534 ALBUMIN 3.9 g/dL 09/12/2018 Comp Metabolic Lzs061 TPRO 6.5 g/dL 09/12/2018 Comp Metabolic Hix072 GLOB 2.6 g/dL 09/12/2018 Comp Metabolic Shh836 A/G Ratio 1.5 Ratio 09/12/2018 Comp Metabolic Ifm475 Osmo 268 mOsmo 09/12/2018 Tsh Ord6 TSH (3rd IS) 12.84 uIU/mL 09/12/2018 Influenza A+B Utp716 Influ A+B Negative 09/12/2018 Cbc With Differential [...] 12.3 % 09/12/2018 Cbc With Differential Ord2 [place]% 12.0 % 09/12/2018 Cbc With Differential Ord2 [...] 0.85 K/ul 09/12/2018 Cbc With Differential Ord2 [place] ABS# 0.8 K/ul 09/12/2018 Cbc With Differential Ord2 Eos ABS# 0.1 K/ul 09/12/2018 Cbc With Differential Ord2 Baso ABS# 0.0 K/ul 09/12/2018 Free T4 Leq839 FREE T4 1.10 ng/dL 09/12/2018 Free T4 Tfa873 FREE T4 1.19 ng/dL 05/08/2018 Digoxin Ord9 DIGOXIN 0.6 NG/ML 05/08/2018 Tsh Ord6 TSH (3rd IS) 10.58 uIU/mL 05/08/2018 Tsh Ord6 TSH (3rd IS) 1.07 uIU/mL 01/31/2018 Free T4 Ytb353 FREE T4 1.63 ng/dL 01/31/2018 Digoxin Ord9 DIGOXIN 0.8 NG/ML 01/31/2018 C RAP A SC [id number] Strep A Negative 11/21/2016 Thyroid Antibodies 277054 THYROGLOBULIN ANTIBODY . 11/04/2016 Thyroid Antibodies 964571 THYROGLOBULIN ANTIBODY 919 IU/mL 11/04/2016 Thyroid Antibodies 682330 THYROID PEROXIDASE (TPO) AB . 11/04/2016 Thyroid Antibodies 381976 THYROID PEROXIDASE (TPO) AB 10 IU/mL 11/04/2016 Total T3 Ord42 TT3 0.64 ng/ml 11/03/2016 Free T4 Cfh337 FREE T4 1.39 ng/dL 11/02/2016 Tsh Ord6 [...] Differential Ord2 RDW 13.8 % 05/26/2015 Pt Hpu3137 PT 25.0 seconds 05/26/2015 Pt Anh2398 INR 2.4 05/26/2015 Pt Rxq8904 Low Intensity - 1.5-2.0 05/26/2015 Pt Dop0179 Mod intensity - 2.0-3.0 05/26/2015 Pt Khm4543 Hi intensity - 3.0-4.0 05/26/2015 Uric Acid [...] Digoxin Ord9 DIGOXIN 0.6 NG/ML 05/06/2015 Pt Mzk0538 PT 23.3 seconds 05/06/2015 Pt Ffm1531 INR 2.1 05/06/2015 Pt Yll1659 Low Intensity - 1.5-2.0 05/06/2015 Pt Knn1053 Mod intensity - 2.0-3.0 05/06/2015 Pt Jkz1416 Hi intensity - 3.0-4.0 05/06/2015 Free T4 Zpu458 FREE T4 1.65 ng/dL 05/06/2015 Comp Metabolic Knw316 NA 132 mEq/L 05/06/2015 Comp Metabolic Yom185 K 4.1 mEq/L 05/06/2015 Comp Metabolic Mho368 CL 98 mEq/L 05/06/2015 Comp Metabolic Ljy624 CO2 27.0 mEq/L 05/06/2015 Comp Metabolic Shw798 ANION GAP 11 05/06/2015 Comp Metabolic Cch584 GLUCOSE 71 mg/dL 05/06/2015 Comp Metabolic Qmf374 Creat 0.7 mg/dL 05/06/2015 Comp Metabolic Daz956 eGFR 82 ml/min/1.73m2 05/06/2015 Comp Metabolic Udr000 BUN 16 mg/dL 05/06/2015 Comp Metabolic Nup936 B/C Ratio 22.2 Ratio 05/06/2015 Comp Metabolic Gah074 CALCIUM 9.4 mg/dL 05/06/2015 Comp Metabolic Vtk982 ALK PHOS 60 U/L 05/06/2015 Comp Metabolic Idh498 AST(SGOT) 22 U/L 05/06/2015 Comp Metabolic Sis453 ALT(SGPT) 24 U/L 05/06/2015 Comp Metabolic Vlz523 BILI T 0.8 mg/dL 05/06/2015 Comp Metabolic Lqo221 ALBUMIN 4.3 g/dL 05/06/2015 Comp Metabolic Ivy466 TPRO 7.6 g/dL 05/06/2015 Comp Metabolic Vau931 GLOB 3.3 g/dL 05/06/2015 Comp Metabolic Kim321 A/G Ratio 1.3 Ratio 05/06/2015 Comp Metabolic Mes402 Osmo 264 mOsmo 05/06/2015 DIGOXIN 0267728 DIGOXIN 1.1 NG/ML 05/15/2013 PT/MC 5674421 PRO TIME 21.7 SEC 05/15/2013 PT/MC 1970624 INR MCMC 2.0 05/15/2013 CHEM 14 0020473 AST 24 U/L 04/23/2013 CHEM 14 0120815 ALT 31 IU/L 04/23/2013 CHEM 14 6005633 BUN 13 MG/DL 04/23/2013 CHEM 14 5298590 ALBUMIN 4.1 GM/DL 04/23/2013 CHEM 14 4723964 CHLORIDE 103 MMOL/L 04/23/2013 CHEM 14 4082274 BILI TOT 0.5 MG/DL 04/23/2013 CHEM 14 5279820 ALK PHOS 44 U/L 04/23/2013 CHEM 14 0463807 SODIUM 137 MMOL/L 04/23/2013 CHEM 14 2850804 CREATININE 0.61 MG/DL 04/23/2013 CHEM 14 4021774 CALCIUM 9.5 MG/DL 04/23/2013 CHEM 14 2971669 POTASSIUM 4.0 MMOL/L 04/23/2013 CHEM 14 0758353 PROT TOT 6.6 GM/DL 04/23/2013 CHEM 14 7838902 GLUCOSE 99 MG/DL 04/23/2013 CHEM 14 7779043 BICARB 27 MMOL/L 04/23/2013 CHEM 14 8526241 ANION GAP 7 MEQ/L 04/23/2013 GFR CALC 7429750 GFR AA >60 ML/MIN 04/23/2013 GFR CALC 9273972 GFR NON-AA >60 ML/MIN 04/23/2013 TSH 8848182 TSH 4.204 uIU/ML 04/23/2013 CBC 5968355 WBC 6.7 10e9/L 04/23/2013 CBC 6311851 RBC 4.19 10e12/L 04/23/2013 CBC 2274977 HGB 13.2 g/dL 04/23/2013 CBC 0778481 HCT DET 39.2 % 04/23/2013 CBC 2279154 MCV 93.6 fL 04/23/2013 CBC 0356367 MCH 31.5 pg 04/23/2013 CBC 1541626 MCHC 33.7 g/dL 04/23/2013 CBC 6664942 PLT 202 10e9/L 04/23/2013 CBC 1379513 MPV 11.4 fL 04/23/2013 CBC 5143411 YANIRA % 70.5 % 04/23/2013 CBC 6197723 LY % 19.6 % 04/23/2013 CBC 6948091 MON % 8.2 % 04/23/2013 CBC 1616334 EOS % 1.6 % 04/23/2013 CBC 9764128 BASO % 0.1 % 04/23/2013 CBC 6110940 RDW 13.7 % 04/23/2013 CBC 8564318 ABS YANIRA 4.72 10e9/L 04/23/2013 CBC 7053625 ABS LYMPH 1.31 10e9/L 04/23/2013 CBC 8824927 ABS MONO 0.55 10e9/L 04/23/2013 CBC 6371916 ABS EOS 0.11 10e9/L 04/23/2013 CBC 9533031 ABS BASO 0.01 10e9/L 04/23/2013 CBC 0343976 RDW-SD 45.7 fL 04/23/2013 PT/MC 5155250 PRO TIME 13.4 SEC 12/17/2012 PT/MC 3995901 INR MCMC 1.0 12/17/2012 PT/MC 2868290 PRO TIME 16.6 SEC 12/14/2012 PT/MC 2932325 INR MCMC 1.4 12/14/2012 PT/MC 6241193 PRO TIME 27.2 SEC 12/11/2012 PT/MC 3279877 INR MCMC 2.6 12/11/2012 DIGOXIN 9542008 DIGOXIN 2.1 NG/ML 03/08/2012 GFR CALC 4023048 GFR AA >60 ML/MIN 03/08/2012 GFR CALC 5802125 GFR NON-AA >60 ML/MIN 03/08/2012 CHEM 14 5329774 AST 16 U/L 03/08/2012 CHEM 14 8324514 ALT 14 IU/L 03/08/2012 CHEM 14 5483350 BUN 10 MG/DL 03/08/2012 CHEM 14 2486488 ALBUMIN 4.2 GM/DL 03/08/2012 CHEM 14 9939015 CHLORIDE 100 MMOL/L 03/08/2012 CHEM 14 0744595 BILI TOT 0.5 MG/DL 03/08/2012 CHEM 14 2488297 ALK PHOS 59 U/L 03/08/2012 CHEM 14 0674194 SODIUM 136 MMOL/L 03/08/2012 CHEM 14 7030756 CREATININE 0.65 MG/DL 03/08/2012 CHEM 14 6253436 CALCIUM 9.4 MG/DL 03/08/2012 CHEM 14 0880483 POTASSIUM 3.9 MMOL/L 03/08/2012 CHEM 14 7069206 PROT TOT 6.7 GM/DL 03/08/2012 CHEM 14 8237809 GLUCOSE 90 MG/DL 03/08/2012 CHEM 14 8284183 BICARB 30 MMOL/L 03/08/2012 CHEM 14 6985226 ANION GAP 6 MEQ/L 03/08/2012 CHEM 14 6268155 AST 16 U/L 11/23/2011 CHEM 14 3313826 ALT 14 IU/L 11/23/2011 CHEM 14 6264023 BUN 11 MG/DL 11/23/2011 CHEM 14 3859956 ALBUMIN 4.1 GM/DL 11/23/2011 CHEM 14 1722133 CHLORIDE 100 MMOL/L 11/23/2011 CHEM 14 7697811 BILI TOT 0.5 MG/DL 11/23/2011 CHEM 14 9813075 ALK PHOS 50 U/L 11/23/2011 CHEM 14 3459152 SODIUM 135 MMOL/L 11/23/2011 CHEM 14 7804908 CREATININE 0.57 MG/DL 11/23/2011 CHEM 14 3777175 CALCIUM 9.1 MG/DL 11/23/2011 CHEM 14 9133970 POTASSIUM 4.5 MMOL/L 11/23/2011 CHEM 14 2552560 PROT TOT 6.5 GM/DL 11/23/2011 CHEM 14 6437926 GLUCOSE 89 MG/DL 11/23/2011 CHEM 14 3913420 BICARB 28 MMOL/L 11/23/2011 CHEM 14 1446892 ANION GAP 7 MEQ/L 11/23/2011 GFR CALC 9864161 GFR AA >60 ML/MIN 11/23/2011 GFR CALC 1359602 GFR NON-AA >60 ML/MIN 11/23/2011 CBC 0819467 WBC 5.1 10e9/L 11/23/2011 CBC 8317173 RBC 4.06 10e12/L 11/23/2011 CBC 1056349 HGB 12.5 g/dL 11/23/2011 CBC 3138117 HCT DET 37.3 % 11/23/2011 CBC 0551797 MCV 91.9 fL 11/23/2011 CBC 1964338 MCH 30.8 pg 11/23/2011 CBC 5812513 MCHC 33.5 g/dL 11/23/2011 CBC 5993846 PLT 222 10e9/L 11/23/2011 CBC 8540338 MPV 10.8 fL 11/23/2011 CBC 6864472 YANIRA % 64.2 % 11/23/2011 CBC 9347342 LY % 22.3 % 11/23/2011 CBC 9902006 MON % 11.3 % 11/23/2011 CBC 6807824 EOS % 1.8 % 11/23/2011 CBC 6932401 BASO % 0.4 % 11/23/2011 CBC 9762563 RDW 13.6 % 11/23/2011 CBC 9889921 ABS YANIRA 3.27 10e9/L 11/23/2011 CBC 2861646 ABS LYMPH 1.14 10e9/L 11/23/2011 CBC 3497609 ABS MONO 0.58 10e9/L 11/23/2011 CBC 7846036 ABS EOS 0.09 10e9/L 11/23/2011 CBC 0557414 ABS BASO 0.02 10e9/L 11/23/2011 CBC 3842959 RDW-SD 44.5 fL 11/23/2011 UA 96847 Specific [place] 1.005 03/04/2011 UA 10388 PH 6 03/04/2011 UA 82526 GLUCOSE N 03/04/2011 UA 82591 Protein N 03/04/2011 UA 10206 Blood ++ 03/04/2011 UA 45378 Bilirubin N 03/04/2011 UA 79784 Ketones N 03/04/2011 UA 30918 Urobilinogen N 03/04/2011 UA 59172 Nitrite N 03/04/2011 UA 44699 Leukocytes N 03/04/2011 URINALYSIS NONAUTO W/O SCOPE 29158 Specific [place] 1.010 DateTime(Free Text in Aprima) URINALYSIS NONAUTO W/O SCOPE 84098 PH 6.5 DateTime(Free Text in Aprima) URINALYSIS NONAUTO W/O SCOPE 01901 GLUCOSE neg DateTime(Free Text in Aprima) URINALYSIS NONAUTO W/O SCOPE 52854 Protein neg DateTime(Free Text in Aprima) URINALYSIS NONAUTO W/O SCOPE 33619 Blood 3+ DateTime(Free Text in Aprima) URINALYSIS NONAUTO W/O SCOPE 93953 Bilirubin neg DateTime(Free Text in Aprima) URINALYSIS NONAUTO W/O SCOPE 17585 Ketones neg DateTime(Free Text in Aprima) URINALYSIS NONAUTO W/O SCOPE 27031 Urobilinogen neg DateTime(Free Text in Aprima) URINALYSIS NONAUTO W/O SCOPE 66093 Nitrite neg DateTime(Free Text in Aprima) URINALYSIS NONAUTO W/O SCOPE 71696 Leukocytes neg DateTime(Free Text in Aprima) URINALYSIS NONAUTO W/O SCOPE 16179 Specific [place] 1.010 DateTime(Free Text in Aprima) URINALYSIS NONAUTO W/O SCOPE 22634 PH 5 DateTime(Free Text in Aprima) URINALYSIS NONAUTO W/O SCOPE 37989 GLUCOSE neg DateTime(Free Text in Aprima) URINALYSIS NONAUTO W/O SCOPE 46203 Protein neg DateTime(Free Text in Aprima) URINALYSIS NONAUTO W/O SCOPE 08736 Blood 3+ DateTime(Free Text in Aprima) URINALYSIS NONAUTO W/O SCOPE 87410 Bilirubin neg DateTime(Free Text in Aprima) URINALYSIS NONAUTO W/O SCOPE 88057 Ketones neg DateTime(Free Text in Aprima) URINALYSIS NONAUTO W/O SCOPE 03579 Urobilinogen neg DateTime(Free Text in Aprima) URINALYSIS NONAUTO W/O SCOPE 37822 Nitrite neg DateTime(Free Text in Aprima) URINALYSIS NONAUTO W/O SCOPE 26588 Leukocytes neg DateTime(Free Text in Aprima) URINALYSIS NONAUTO W/O SCOPE 26273 Specific [place] 1.005 DateTime(Free Text in Aprima) URINALYSIS NONAUTO W/O SCOPE 78560 PH 8.5 DateTime(Free Text in Aprima) URINALYSIS NONAUTO W/O SCOPE 23749 GLUCOSE neg DateTime(Free Text in Aprima) URINALYSIS NONAUTO W/O SCOPE 86973 Protein neg DateTime(Free Text in Aprima) URINALYSIS NONAUTO W/O SCOPE 01401 Blood 1+ DateTime(Free Text in Aprima) URINALYSIS NONAUTO W/O SCOPE 87093 Bilirubin neg DateTime(Free Text in Aprima) URINALYSIS NONAUTO W/O SCOPE 91667 Ketones neg DateTime(Free Text in Aprima) URINALYSIS NONAUTO W/O SCOPE 82105 Urobilinogen neg DateTime(Free Text in Aprima) URINALYSIS NONAUTO W/O SCOPE 81462 Nitrite neg DateTime(Free Text in Aprima) URINALYSIS NONAUTO W/O SCOPE 33974 Leukocytes neg DateTime(Free Text in Aprima) URINALYSIS NONAUTO W/O SCOPE 62053 Specific [place] 1.005 DateTime(Free Text in Aprima) URINALYSIS NONAUTO W/O SCOPE 26936 PH 7 DateTime(Free Text in Aprima) URINALYSIS NONAUTO W/O SCOPE 63471 GLUCOSE neg DateTime(Free Text in Aprima) URINALYSIS NONAUTO W/O SCOPE 77216 Protein neg DateTime(Free Text in Aprima) URINALYSIS NONAUTO W/O SCOPE 15898 Blood large DateTime(Free Text in Aprima) URINALYSIS NONAUTO W/O SCOPE 60823 Bilirubin neg DateTime(Free Text in Aprima) URINALYSIS NONAUTO W/O SCOPE 96924 Ketones neg DateTime(Free Text in Aprima) URINALYSIS NONAUTO W/O SCOPE 62066 Urobilinogen 0.2 DateTime(Free Text in Aprima) URINALYSIS NONAUTO W/O SCOPE 87860 Nitrite neg DateTime(Free Text in Aprima) URINALYSIS NONAUTO W/O SCOPE 11119 Leukocytes neg DateTime(Free Text in Aprima) URINALYSIS NONAUTO W/O SCOPE 94846 Specific [place] 1.005 DateTime(Free Text in Aprima) URINALYSIS NONAUTO W/O SCOPE 36508 PH 7.5 DateTime(Free Text in Aprima) URINALYSIS NONAUTO W/O SCOPE 84855 GLUCOSE DateTime(Free Text in Aprima) URINALYSIS NONAUTO W/O SCOPE 44123 Protein trace DateTime(Free Text in Aprima) URINALYSIS NONAUTO W/O SCOPE 42968 Blood 4+ DateTime(Free Text in Aprima) URINALYSIS NONAUTO W/O SCOPE 70823 Bilirubin DateTime(Free Text in Aprima) URINALYSIS NONAUTO W/O SCOPE 71174 Ketones DateTime(Free Text in Aprima) URINALYSIS NONAUTO W/O SCOPE 16954 Urobilinogen DateTime(Free Text in Aprima) URINALYSIS NONAUTO W/O SCOPE 57498 Nitrite DateTime(Free Text in Aprima) URINALYSIS NONAUTO W/O SCOPE 76266 Leukocytes trace DateTime(Free Text in Aprima) Review of Systems System Result Effective Dates Constitutional No anorexia 10/31/2018 Constitutional No night [...] contact 10/31/2018 None Full Exam - General 1995 Constitutional general appearance Development: well developed 10/09/2018 [...] erythema 11/21/2016 mild Full Exam - General 1995 Integument inspection of skin Location: right arm [...] FLU VACC PRSV FREE INC ANTIG CPT-4: 50825 03/27/2017 PPPS, SUBSEQ VISIT CPT- 4: G0439 01/23/2017 URINALYSIS NONAUTO W/O SCOPE CPT-4: 04078 05/17/2016 ADMIN INFLUENZA VIRUS VAC CPT-4: G0008 03/24/2016 FLU VACC PRSV FREE INC ANTIG CPT-4: 72201 03/24/2016 ADMIN PNEUMOCOCCAL VACCINE SNOMED CT: 92313137 CPT-4: G0009 05/13/2015 PNEUMOCOCCAL VACC [address]: 25012619 CPT-4: 29842 05/13/2015 Pneumococcal Polysaccharide Vaccine, 23-Valent, Ad Assigned to/Mela Bledsoe CPT-4: 64882Axrsryr 07/11/2014 ADMIN PNEUMOCOCCAL VACCINE SNOMED CT: 68747419 CPT-4: G0009 07/11/2014 URINALYSIS NONAUTO W/O SCOPE CPT-4: 24913 05/14/2014 URINALYSIS NONAUTO W/O SCOPE CPT-4: 04975 05/06/2014 URINALYSIS NONAUTO W/O SCOPE CPT-4: 36939 04/29/2014 ADMIN INFLUENZA VIRUS VAC CPT-4: G0008 03/20/2014 FLU VAC NO PRSV 4 SCOTT 3 YRS+ Assigned to/Mela Bledsoe CPT-4: 51594Ulokicg 03/20/2014 URINALYSIS NONAUTO W/O SCOPE CPT-4: 33945 07/29/2013 URINALYSIS NONAUTO W/O SCOPE CPT-4: 33135 07/01/2013 URINALYSIS NONAUTO W/O SCOPE CPT-4: 83525 06/20/2013 ROUTINE VENIPUNCTURE CPT- 4: 85436 05/15/2013 ROUTINE VENIPUNCTURE CPT- 4: 49421 04/23/2013 ADMIN INFLUENZA VIRUS VAC CPT-4: G0008 04/23/2013 FLULAVAL VACC, 3 YRS & >, IM CPT-4: Q2036 04/23/2013 ROUTINE VENIPUNCTURE CPT- 4: 20936 12/17/2012 ROUTINE VENIPUNCTURE CPT- 4: 00195 12/14/2012 ROUTINE VENIPUNCTURE CPT- 4: 57094 12/11/2012 PRESCRIP TRANSMIT VIA ERX SY CPT-4: G8553 12/11/2012 PRESCRIP TRANSMIT VIA ERX SY CPT-4: G8553 10/30/2012 URINALYSIS NONAUTO W/O SCOPE CPT-4: 31415 09/13/2012 ADMIN INFLUENZA VIRUS VAC CPT-4: G0008 04/18/2012 FLULAVAL VACC, 3 YRS & >, IM CPT-4: Q2036 04/18/2012 URINALYSIS NONAUTO W/O SCOPE CPT-4: 89454 03/13/2012 ROUTINE VENIPUNCTURE CPT- 4: 84111 03/08/2012 URINALYSIS NONAUTO W/O SCOPE CPT-4: 30450 02/13/2012 PRESCRIP TRANSMIT VIA ERX SY CPT-4: G8553 02/13/2012 ROCEPHIN, PER 250 MG CPT- 4: J0696 11/23/2011 ROUTINE VENIPUNCTURE CPT- 4: 62483 11/23/2011 URINALYSIS NONAUTO W/O SCOPE CPT-4: 62294 11/23/2011 PRESCRIP TRANSMIT VIA ERX SY CPT-4: G8553 11/23/2011 REMOVE IMPACTED EAR WAX UNI CPT-4: 12673 10/17/2011 PRESCRIP TRANSMIT VIA ERX SY CPT-4: G8553 10/03/2011 PRESCRIP TRANSMIT VIA ERX SY CPT-4: G8553 08/08/2011 URINALYSIS NONAUTO W/O SCOPE CPT-4: 37898 03/15/2011 URINALYSIS NONAUTO W/O SCOPE CPT-4: 89889 03/04/2011 THER/PROPH/DIAG INJ SC/IM CPT-4: 57468 03/04/2011 ROCEPHIN, PER 250 MG CPT- 4: J0696 03/04/2011 Vital Signs Date Vital 10/31/2018 Blood Pressure 1: 122/66 Code: 8480-6 BMI: 20.5 Code: 41412-0 Heart Rate 1: 83 bpm Height: 5' SpO2: 99% Weight: 105 lbs 10/09/2018 Blood Pressure 1: 126/60 Code: 8480-6 BMI: 19.9 Code: 07543-3 Heart Rate 1: 66 bpm Height: 5' SpO2: 96% Weight: 102 lbs 09/12/2018 Blood Pressure 1: 156/72 Code: 8480-6 BMI: 19.9 Code: 93671-0 Heart Rate 1: 68 bpm Height: 5' Temperature: 36.6 (C) / 97.8 (F) Weight: 102 lbs 08/14/2018 Blood Pressure 1: 136/68 Code: 8480-6 BMI: 21.1 Code: 85947-9 Heart Rate 1: 92 bpm Height: 5' Weight: 108 lbs 07/26/2018 Blood Pressure 1: 128/76 Code: 8480-6 BMI: 21.1 Code: 61997-0 Heart Rate 1: 88 bpm Height: 5' Weight: 108 lbs 06/04/2018 Blood Pressure 1: 124/72 Code: 8480-6 BMI: 21.3 Code: 97630-8 Heart Rate 1: 98 bpm Height: 5' Weight: 109 lbs 01/31/2018 Blood Pressure 1: 116/68 Code: 8480-6 BMI: 21.1 Code: 45256-6 Heart Rate 1: 89 bpm Height: 5' SpO2: 98% Weight: 108 lbs 01/17/2018 Blood Pressure 1: 134/74 Code: 8480-6 BMI: 21.3 Code: 91912-7 Heart Rate 1: 74 bpm Height: 5' SpO2: 96% Waist Measure (cm): 71 cm Weight: 109 lbs 12/14/2017 Blood Pressure 1: 150/78 Code: 8480-6 BMI: 21.5 Code: 39540-9 Heart Rate 1: 77 bpm Height: 5' SpO2: 98% Temperature: 36.7 (C) / 98.1 (F) Weight: 110 lbs 12/07/2017 Blood Pressure 1: 134/70 Code: 8480-6 Heart Rate 1: 76 bpm Height: SpO2: 98% Temperature: 36.8 (C) / 98.2 (F) Weight: 11/14/2017 Blood Pressure 1: 152/84 Code: 8480-6 BMI: 21.9 Code: 07457-3 Heart Rate 1: 95 bpm Height: 5' SpO2: 93% Weight: 112 lbs 03/27/2017 Blood Pressure 1: 122/70 Code: 8480-6 BMI: 21.3 Code: 61119-1 Heart Rate 1: 75 bpm Height: 5' Weight: 109 lbs 01/23/2017 BMI: 21.5 Code: 81054-4 Height: 5' Weight: 110 lbs 01/19/2017 Blood Pressure 1: 112/60 Code: 8480-6 BMI: 21.5 Code: 49362-9 Heart Rate 1: 54 bpm Height: 5' SpO2: 97% Weight: 110 lbs 11/29/2016 Blood Pressure 1: 126/68 Code: 8480-6 Height: 5' Weight: 11/23/2016 Blood Pressure 1: 130/72 Code: 8480-6 BMI: 21.9 Code: 63415-9 Heart Rate 1: 48 bpm Height: 5' SpO2: 97% Temperature: 36.7 (C) / 98.0 (F) Weight: 112 lbs 11/21/2016 Blood Pressure 1: 134/76 Code: 8480-6 BMI: 21.9 Code: 61477-9 Heart Rate 1: 41 bpm Height: 5' SpO2: 94% Temperature: 36.9 (C) / 98.4 (F) Weight: 112 lbs 11/08/2016 Blood Pressure 1: 126/74 Code: 8480-6 Heart Rate 1: 82 bpm Height: 5' SpO2: 94% Weight: 11/02/2016 Blood Pressure 1: 112/66 Code: 8480-6 Heart Rate 1: 72 bpm Height: 5' SpO2: 95% Weight: 10/27/2016 Blood Pressure 1: 130/64 Code: 8480-6 BMI: 21.7 Code: 53785-5 Heart Rate 1: 81 bpm Height: 5' SpO2: 96% Weight: 111 lbs 08/31/2016 Blood Pressure 1: 132/72 Code: 8480-6 BMI: 22.5 Code: 80531-2 Heart Rate 1: 66 bpm Height: 5' Weight: 115 lbs 07/27/2016 Blood Pressure 1: 166/74 Code: 8480-6 BMI: 23.2 Code: 56113-9 Heart Rate 1: 48 bpm Height: 5' SpO2: 90% Temperature: 36.8 (C) / 98.2 (F) Weight: 119 lbs 06/23/2016 Blood Pressure 1: 128/70 Code: 8480-6 BMI: 22.3 Code: 93770-2 Heart Rate 1: 75 bpm Height: 5' SpO2: 97% Weight: 114 lbs 06/09/2016 BMI: 22.7 Code: 80779-7 Heart Rate 1: 73 bpm Height: 5' SpO2: 97% Weight: 116 lbs 05/25/2016 Blood Pressure 1: 138/62 Code: 8480-6 BMI: 22.8 Code: 63874-2 Heart Rate 1: 76 bpm Height: 5' Weight: 117 lbs 05/17/2016 Blood Pressure 1: 116/70 Code: 8480-6 BMI: 22.8 Code: 78467-0 Heart Rate 1: 74 bpm Height: 5' SpO2: 94% Weight: 117 lbs 03/24/2016 Blood Pressure 1: 154/78 Code: 8480-6 BMI: 22.5 Code: 62822-6 Heart Rate 1: 78 bpm Height: 5' SpO2: 97% Weight: 115 lbs 02/02/2016 Blood Pressure 1: 132/70 Code: 8480-6 BMI: 22.3 Code: 01149-1 Heart Rate 1: 74 bpm Height: 5' SpO2: 94% Weight: 114 lbs 2016 Blood Pressure 1: 120/62 Code: 8480-6 BMI: 22.0 Code: 49167-8 Heart Rate 1: 68 bpm Height: 5' Weight: 112 lbs 8 oz 12/21/2015 Blood Pressure 1: 122/82 Code: 8480-6 BMI: 21.9 Code: 50549-3 Heart Rate 1: 83 bpm Height: 5' SpO2: 93% Temperature: 37.1 (C) / 98.7 (F) Weight: 112 lbs 11/03/2015 Blood Pressure 1: 122/72 Code: 8480-6 BMI: 22.4 Code: 44627-2 Heart Rate 1: 62 bpm Height: 5' Weight: 114 lbs 8 oz 10/19/2015 Blood Pressure 1: 138/62 Code: 8480-6 BMI: 21.1 Code: 78616-7 Heart Rate 1: 79 bpm Height: 5' Weight: 108 lbs 10/13/2015 Blood Pressure 1: 120/62 Code: 8480-6 BMI: 21.0 Code: 64156-0 Heart Rate 1: 76 bpm Height: 5' SpO2: 98% Weight: 108 lbs 09/29/2015 Blood Pressure 1: 130/70 Code: 8480-6 BMI: 20.2 Code: 77240-2 Heart Rate 1: 72 bpm Height: 5' Weight: 104 lbs 09/15/2015 Blood Pressure 1: 128/78 Code: 8480-6 BMI: 19.9 Code: 06828-2 Heart Rate 1: 72 bpm Height: 5' Weight: 102 lbs 8 oz 09/01/2015 Blood Pressure 1: 128/68 Code: 8480-6 BMI: 19.8 Code: 47821-8 Height: 5' Weight: 102 lbs 05/26/2015 Blood Pressure 1: 140/68 Code: 8480-6 BMI: 19.0 Code: 20355-8 Heart Rate 1: 70 bpm Height: 5' Weight: 98 lbs 05/21/2015 Blood Pressure 1: 140/78 Code: 8480-6 BMI: 19.2 Code: 66715-4 Heart Rate 1: 85 bpm Height: 5' SpO2: 95% Weight: 99 lbs 05/07/2015 Blood Pressure 1: 140/82 Code: 8480-6 BMI: 19.0 Code: 80459-8 Heart Rate 1: 76 bpm Height: 5' Weight: 98 lbs 03/23/2015 Blood Pressure 1: 142/60 Code: 8480-6 BMI: 18.6 Code: 49084-3 Heart Rate 1: 52 bpm Height: 5' Weight: 96 lbs 03/09/2015 Blood Pressure 1: 138/74 Code: 8480-6 BMI: 18.8 Code: 35051-8 Heart Rate 1: 60 bpm Height: 5' Weight: 97 lbs 10/30/2014 Blood Pressure 1: 112/82 Code: 8480-6 BMI: 19.0 Code: 97561-4 Heart Rate 1: 64 bpm Height: 5' Weight: 98 lbs 07/11/2014 Blood Pressure 1: 146/70 Code: 8480-6 BMI: 18.8 Code: 39289-1 Heart Rate 1: 68 bpm Height: 5' Weight: 97 lbs 05/20/2014 Blood Pressure 1: 142/76 Code: 8480-6 BMI: 18.6 Code: 84754-3 Heart Rate 1: 78 bpm Height: 5' Weight: 96 lbs 04/29/2014 Blood Pressure 1: 138/62 Code: 8480-6 BMI: 18.3 Code: 44797-9 Heart Rate 1: 80 bpm Height: 5' Weight: 94 lbs 8 oz 03/20/2014 Blood Pressure 1: 142/68 Code: 8480-6 BMI: 18.6 Code: 40649-7 Heart Rate 1: 96 bpm Height: 5' Weight: 96 lbs 03/05/2014 Blood Pressure 1: 122/72 Code: 8480-6 BMI: 18.8 Code: 70399-7 Heart Rate 1: 82 bpm Height: 5' SpO2: 97% Weight: 97 lbs 01/29/2014 Blood Pressure 1: 124/78 Code: 8480-6 BMI: 18.8 Code: 92121-9 Heart Rate 1: 60 bpm Height: 5' Weight: 97 lbs 01/14/2014 Blood Pressure 1: 120/58 Code: 8480-6 BMI: 19.2 Code: 60648-7 Heart Rate 1: 56 bpm Height: 5' Temperature: 36.9 (C) / 98.4 (F) Weight: 99 lbs 12/25/2013 Blood Pressure 1: 118/78 Code: 8480-6 BMI: 19.2 Code: 53938-1 Heart Rate 1: 68 bpm Height: 5' Weight: 99 lbs 11/27/2013 Blood Pressure 1: 102/68 Code: 8480-6 BMI: 19.4 Code: 22530-5 Heart Rate 1: 56 bpm Height: 5' Weight: 100 lbs 09/12/2013 Blood Pressure 1: 142/62 Code: 8480-6 BMI: 19.7 Code: 67973-9 Heart Rate 1: 72 bpm Height: 5'1" Weight: 104 lbs 08/15/2013 Blood Pressure 1: 152/92 Code: 8480-6 Heart Rate 1: 96 bpm Weight: 102 lbs 08/01/2013 Blood Pressure 1: 122/68 Code: 8480-6 BMI: 19.1 Code: 80907-2 Heart Rate 1: 68 bpm Height: 5'1" Weight: 101 lbs 07/01/2013 Blood Pressure 1: 130/72 Code: 8480-6 BMI: 19.5 Code: 18023-2 Heart Rate 1: 80 bpm Height: 5'1" Temperature: 36.1 (C) / 97.0 (F) Weight: 103 lbs 05/29/2013 Blood Pressure 1: 126/72 Code: 8480-6 BMI: 19.3 Code: 73208-5 Heart Rate 1: 80 bpm Height: 5'1" Weight: 102 lbs 05/15/2013 Blood Pressure 1: 156/74 Code: 8480-6 BMI: 19.3 Code: 55084-0 Heart Rate 1: 88 bpm Height: 5'1" Weight: 102 lbs 04/23/2013 Blood Pressure 1: 140/82 Code: 8480-6 BMI: 19.3 Code: 41195-4 Heart Rate 1: 72 bpm Height: 5'1" Weight: 102 lbs 03/21/2013 Blood Pressure 1: 142/74 Code: 8480-6 Heart Rate 1: 92 bpm Weight: 103 lbs 01/16/2013 Blood Pressure 1: 120/56 Code: 8480-6 BMI: 20.0 Code: 75518-1 Heart Rate 1: 72 bpm Height: 5'1" Weight: 106 lbs 12/19/2012 Blood Pressure 1: 118/66 Code: 8480-6 Heart Rate 1: 84 bpm Weight: 12/10/2012 Blood Pressure 1: 132/62 Code: 8480-6 Heart Rate 1: 64 bpm Weight: 103 lbs 10/30/2012 Blood Pressure 1: 122/66 Code: 8480-6 BMI: 19.9 Code: 94241-9 Heart Rate 1: 61 bpm Height: 5'1" [...] 1: 118/72 Code: 8480-6 BMI: 21.0 Code: 77738-2 Heart Rate 1: 66 bpm Height: 5'1" Respiratory Rate: 16 bpm Weight: 111 lbs 2012 Blood Pressure 1: 122/62 Code: 8480-6 Heart Rate 1: 68 bpm Weight: 110 lbs 12/01/2011 Blood Pressure 1: 150/60 Code: 8480-6 BMI: 20.8 Code: 72744-3 Heart Rate 1: 60 bpm Height: 5'1" Respiratory Rate: 16 bpm Weight: 110 lbs 11/23/2011 Blood Pressure 1: 170/68 Code: 8480-6 BMI: 21.1 Code: 28332-4 Heart Rate 1: 64 bpm Height: 5'1" Temperature: 36.3 (C) / 97.3 (F) Weight: 111 lbs 8 oz 10/17/2011 Blood Pressure 1: 148/62 Code: 8480-6 Heart Rate 1: 74 bpm 10/03/2011 Blood Pressure 1: 102/48 Code: 8480-6 BMI: 21.4 Code: 69987-7 Heart Rate 1: 76 bpm Height: 5'1" Respiratory Rate: 16 bpm Weight: 113 lbs 08/08/2011 Blood Pressure 1: 128/60 Code: 8480-6 Heart Rate 1: 80 bpm Respiratory Rate: 16 bpm Weight: 113 lbs 05/09/2011 Blood Pressure 1: 130/62 Code: 8480-6 BMI: 20.7 Code: 02149-6 Heart Rate 1: 64 bpm Height: 5'1" Respiratory Rate: 16 bpm Weight: 109 lbs 8 oz 03/29/2011 Blood Pressure 1: 120/62 Code: 8480-6 BMI: 20.2 Code: 94407-6 Heart Rate 1: 66 bpm Height: 5'1" Respiratory Rate: 12 bpm Weight: 107 lbs 03/15/2011 Blood Pressure 1: 120/64 Code: 8480-6 BMI: 19.8 Code: 37934-3 Heart Rate 1: 76 bpm Height: 5'1" Respiratory Rate: 16 bpm Weight: 105 lbs Functional Status No Functional Status data History of Present Illness Symptom Name Status Result Effective Date Notes Location on both legs 10/31/2018 None Quality [...] contacts 03/20/2014 sat next to neighbor in [place] who had tonsillitis sore throat Pertinent Findings [...] data Encounters Encounter Performer Location Codes Date ([id number]) 86526 EST. 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 PATIENT, LEVEL III Diagnosis: Raynaud's syndrome without gangrene[ICD10: I73.00] Diagnosis: Pain in left hand[ICD10: M79.642] Diagnosis: Pain in right hand[ICD10: M79.641] Karma Bahena MD, [facility] CPT- 4: 03203 10/09/2018 95704 EST. PATIENT, LEVEL III Diagnosis: Cough[ICD10: R05] Diagnosis: Acute laryngopharyngitis[ICD10: J06.0] Diagnosis: Other allergic rhinitis[ICD10: J30.89] Diagnosis: Raynaud's syndrome without gangrene[ICD10: I73.00] Katharine Bahena MD, [facility] CPT-4: 89682 09/12/2018 ([id number]) 02239 EST. PATIENT, LEVEL IV Diagnosis: Raynaud's syndrome without gangrene[ICD10: I73.00] Diagnosis: Pain in right toe(s)[ICD10: M79.674] Diagnosis: Chronic atrial fibrillation[ICD10: I48.2] Karma Bahena MD, [facility] CPT-4: 09947 08/14/2018 ([id number]) 97479 EST. PATIENT, LEVEL IV Diagnosis: Chronic atrial fibrillation[ICD10: I48.2] Diagnosis: Sebaceous cyst[ICD10: L72.3] Diagnosis: Raynaud's syndrome without gangrene[ICD10: I73.00] Karma Bahena MD, [facility] CPT-4: 95113 07/26/2018 ([id number]) 06585 EST. PATIENT, LEVEL IV Diagnosis: Essential (primary) hypertension[ICD10: I10] Diagnosis: Atrophy of thyroid (acquired)[ICD10: E03.4] Diagnosis: Gastro-esophageal reflux disease without esophagitis[ICD10: K21.9] Karma Bahena MD, [facility] CPT-4: 45492 06/04/2018 ([id number]) 07828 EST. PATIENT, LEVEL IV Diagnosis: Essential (primary) hypertension[ICD10: I10] Diagnosis: Atrophy of thyroid (acquired)[ICD10: E03.4] Diagnosis: Other mcfp (current) drug therapy[ICD10: Z79.899] Karma Bahena MD, [facility] CPT-4: 37746 01/31/2018 ([id number]) 16064 EST. PATIENT, LEVEL IV Diagnosis: Essential (primary) hypertension[ICD10: I10] Diagnosis: Chronic atrial fibrillation[ICD10: I48.2] Diagnosis: Allergic rhinitis due to pollen[ICD10: J30.1] Diagnosis: Cough[ICD10: R05] Karma Bahena MD, [facility] CPT-4: 44226 12/14/2017 70686 EST. PATIENT, LEVEL IV Diagnosis: Other allergic rhinitis[ICD10: J30.89] Katharine Bahena MD, [facility] CPT- 4: 07520 12/07/2017 ([id number]) 77126 EST. PATIENT, LEVEL IV Diagnosis: Essential (primary) hypertension[ICD10: I10] Diagnosis: Chronic atrial fibrillation[ICD10: I48.2] Diagnosis: Atrophy of thyroid (acquired)[ICD10: E03.4] Karma Bahena MD, [facility] CPT-4: 17173 11/14/2017 ([id number]) 29051 EST. PATIENT, LEVEL IV Diagnosis: Essential (primary) hypertension[ICD10: I10] Diagnosis: Localized edema[ICD10: R60.0] Diagnosis: Encounter for immunization[ICD10: Z23] Diagnosis: Age-related osteoporosis without current pathological fracture[ICD10: M81.0] Karma Bahena MD, [facility] CPT-4: 30963 03/27/2017 ([id number]) 00390 EST. PATIENT, LEVEL IV Diagnosis: Essential (primary) hypertension[ICD10: I10] Diagnosis: Chronic atrial fibrillation[ICD10: I48.2] Diagnosis: Dysphonia[ICD10: R49.0] Karma Bahena MD, [facility] CPT-4: 37352 01/19/2017 ([id number]) Miscellaneous no charge Diagnosis: Cough[ICD10: R05] Diagnosis: Acute upper respiratory infection, unspecified[ICD10: J06.9] Laura Bahena MD, [facility] CPT-4: 55465 11/29/2016 08782 EST. PATIENT, LEVEL III Diagnosis: Cough[ICD10: R05] Diagnosis: Acute laryngopharyngitis[ICD10: J06.0] Katharine Bahena MD, [facility] CPT- 4: 79500 11/23/2016 ([id number]) 01534 EST. PATIENT, LEVEL III Diagnosis: Acute laryngopharyngitis[ICD10: J06.0] Laura Bahena MD, [facility] CPT-4: 84751 11/21/2016 ([id number]) Miscellaneous no charge Diagnosis: Laceration without foreign body of right forearm, subsequent encounter[ICD10: S51.811D] Karma Bahena MD, [facility] CPT-4: 94636 11/17/2016 ([id number]) Miscellaneous no charge Diagnosis: Laceration without foreign body of right forearm, subsequent encounter[ICD10: S51.811D] Karma Bahena MD [facility] CPT-4: 66461 11/14/2016 ([id number]) Miscellaneous no charge Diagnosis: Laceration without foreign body of right forearm, subsequent encounter[ICD10: S51.811D] Karma Bahena MD [facility] CPT-4: 17109 11/11/2016 ([id number]) Miscellaneous no charge Diagnosis: Laceration without foreign body of right forearm, subsequent encounter[ICD10: S51.811D] Karma Bahena MD [facility] CPT-4: 35544 11/10/2016 ([id number]) 00415 EST. PATIENT, LEVEL II Diagnosis: Laceration without foreign body of right forearm, subsequent encounter[ICD10: S51.811D] Karma Bahena MD [facility] CPT-4: 66226 11/08/2016 ([id number]) 73227 EST. PATIENT, LEVEL IV Diagnosis: Atrophy of thyroid (acquired)[ICD10: E03.4] Diagnosis: Chronic atrial fibrillation[ICD10: I48.2] Diagnosis: Laceration without foreign body of right forearm, subsequent encounter[ICD10: S51.811D] Karma Bahena MD, [facility] CPT-4: 77838 11/02/2016 ([id number]) 11971 EST. PATIENT, LEVEL III Diagnosis: Laceration without foreign body of right forearm, initial encounter[ICD10: S51.811A] Laura Bahena MD, [facility] CPT-4: 79914 10/27/2016 ([id number]) 04917 EST. PATIENT, LEVEL IV Diagnosis: Essential (primary) hypertension[ICD10: I10] Diagnosis: Chronic atrial fibrillation[ICD10: I48.2] Karma Bahena MD, [facility] CPT-4: 63205 08/31/2016 ([id number]) 80090 EST. PATIENT, LEVEL IV Diagnosis: Localized edema[ICD10: R60.0] Diagnosis: Essential (primary) hypertension[ICD10: I10] Diagnosis: Abdominal distension (gaseous)[ICD10: R14.0] Karma Bahena MD, [facility] CPT-4: 47936 07/27/2016 ([id number]) 84999 EST. PATIENT, LEVEL IV Diagnosis: Essential (primary) hypertension[ICD10: I10] Diagnosis: Chronic atrial fibrillation[ICD10: I48.2] Diagnosis: Localized edema[ICD10: R60.0] Karma Bahena MD [facility] CPT-4: 63354 06/23/2016 ([id number]) 84151 EST. PATIENT, LEVEL III Diagnosis: Localized edema[ICD10: R60.0] Karma Bahena MD [facility] CPT-4: 53686 06/09/2016 ([id number]) 97979 EST. PATIENT, LEVEL III Diagnosis: Irritable bowel syndrome without diarrhea[ICD10: K58.9] Diagnosis: Pruritus ani[ICD10: L29.0] Karma Bahena MD, [facility] CPT-4: 63792 05/25/2016 ([id number]) 44567 EST. PATIENT, LEVEL III Diagnosis: Abdominal distension (gaseous)[ICD10: R14.0] Diagnosis: Encounter for screening mammogram for malignant neoplasm of breast[ICD10: Z12.31] Karma Bahena MD, [facility] CPT-4: 36967 05/17/2016 ([id number]) 43074 EST. PATIENT, LEVEL IV Diagnosis: Essential (primary) hypertension[ICD10: I10] Diagnosis: First degree hemorrhoids[ICD10: K64.0] Diagnosis: Encounter for immunization[ICD10: Z23] Karma Bahena MD, [facility] CPT-4: 93030 03/24/2016 ([id number]) 44012 EST. PATIENT, LEVEL III Diagnosis: Epidermal cyst[ICD10: L72.0] Diagnosis: Essential (primary) hypertension[ICD10: I10] Diagnosis: Chronic atrial fibrillation[ICD10: I48.2] Diagnosis: Other mcfp (current) drug therapy[ICD10: Z79.899] Karma Bahena MD, [facility] CPT-4: 80058 02/02/2016 ([id number]) 79778 EST. PATIENT, LEVEL III Diagnosis: Acute anal fissure[ICD10: K60.0] Karma Bahena MD, [facility] CPT-4: 43835 2016 ([id number]) 74512 EST. PATIENT, LEVEL III Diagnosis: Allergic rhinitis due to pollen[ICD10: J30.1] Diagnosis: Acute upper respiratory infection, unspecified[ICD10: J06.9] Laura Bahena MD, [facility] CPT-4: 84203 12/21/2015 ([id number]) 99990 EST. PATIENT, LEVEL III Diagnosis: Essential (primary) hypertension[ICD10: I10] Diagnosis: Chronic atrial fibrillation[ICD10: I48.2] Karma Bahena MD, [facility] CPT-4: 51535 11/03/2015 ([id number]) Miscellaneous no charge Diagnosis: Impacted cerumen, right ear[ICD10: H61.21] Katharine Bahena MD, [facility] CPT-4: 48630 10/19/2015 74910 EST. PATIENT, LEVEL IV Diagnosis: Impacted cerumen, right ear[ICD10: H61.21] Diagnosis: Other allergic rhinitis[ICD10: J30.89] Katharine Bahena MD, [facility] CPT- 4: 49511 10/13/2015 ([id number]) 38255 EST. PATIENT, LEVEL IV Diagnosis: Essential (primary) hypertension[ICD10: I10] Diagnosis: Chronic atrial fibrillation[ICD10: I48.2] Diagnosis: Urge incontinence[ICD10: N39.41] Diagnosis: Age-related osteoporosis without current pathological fracture[ICD10: M81.0] Karma Bahena MD [facility] CPT-4: 05615 09/29/2015 ([id number]) 80140 EST. PATIENT, LEVEL IV Diagnosis: Essential (primary) hypertension[ICD10: I10] Diagnosis: Chronic atrial fibrillation[ICD10: I48.2] Diagnosis: Irritable bowel syndrome without diarrhea[ICD10: K58.9] Diagnosis: Unspecified hemorrhoids[ICD10: K64.9] Karma Bahena MD [facility] CPT-4: 84685 09/15/2015 ([id number]) 98220 EST. 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 PATIENT, LEVEL III Diagnosis: Hematuria, unspecified[ICD10: R31.9] Diagnosis: Other urethritis[ICD10: N34.2] Diagnosis: Other specified noninflammatory disorders of vagina[ICD10: N89.8] Karma Bahena MD [facility] CPT-4: 76334 05/26/2015 08948 EST. PATIENT, LEVEL IV Diagnosis: Gout, unspecified[ICD10: M10.9] Karma Bahena MD, [facility] CPT-4: 51551 05/21/2015 ([id number]) 10301 EST. PATIENT, LEVEL IV Diagnosis: Chronic atrial fibrillation[ICD10: I48.2] Diagnosis: Irritable bowel syndrome without diarrhea[ICD10: K58.9] Diagnosis: Cystocele, unspecified[ICD10: N81.10] Diagnosis: Urge incontinence[ICD10: N39.41] Diagnosis: Fecal smearing[ICD10: R15.1] Diagnosis: Hypothyroidism, unspecified[ICD10: E03.9] Karma Bahena MD [facility] CPT-4: 37032 05/07/2015 ([id number]) 70526 EST. PATIENT, LEVEL III Diagnosis: Atrial fibrillation[ICD9: 427.31] Diagnosis: Bloating[ICD9: 787.3] Karma Bahena MD [facility] CPT-4: 41154 03/23/2015 ([id number]) 04928 EST. PATIENT, LEVEL IV Diagnosis: Abdominal pain[ICD9: 789.00] Diagnosis: Atrial fibrillation[ICD9: 427.31] Diagnosis: ENCNTR LONG-ANTICOAG USE[ICD9: V58.61] Karma Bahena MD [facility] CPT-4: 67488 03/09/2015 ([id number]) 63261 EST. PATIENT, LEVEL IV Diagnosis: HEMATURIA NOS[ICD9: 599.70] Diagnosis: Atrial fibrillation[ICD9: 427.31] Diagnosis: HYPOTHYROIDISM[ICD9: 244.9] Karma Bahena MD [facility] CPT-4: 04473 10/30/2014 [id number]) 06106 EST. PATIENT, LEVEL IV Diagnosis: Atrial fibrillation[ICD9: 427.31] Diagnosis: ALLERGIC RHINITIS[ICD9: 477.9] Diagnosis: Need for pneumococcal vaccine[ICD9: V03.82] Diagnosis: Osteoarthritis[ICD9: 715.90] Diagnosis: Osteoporosis[ICD9: 733.00] Karma Bahena MD [facility] CPT-4: 14105 07/11/2014 [id number]) 33406 EST. PATIENT, LEVEL III Diagnosis: Urge incontinence[ICD9: 788.31] Diagnosis: Dysuria[ICD9: 788.1] Karma Bahena MD [facility] CPT-4: 05760 05/20/2014 [id number]) 06008 EST. PATIENT, LEVEL IV Diagnosis: Atrial fibrillation[ICD9: 427.31] Diagnosis: Hematuria[ICD9: 599.70] Diagnosis: Dysuria[ICD9: 788.1] Diagnosis: ESSENTIAL HYPERTENSION[ICD9: 401.9] Karma Bahena MD [facility] CPT- 4: 38625 04/29/2014 ([id number]) 24288 EST. PATIENT, LEVEL IV Diagnosis: ESSENTIAL HYPERTENSION[ICD9: 401.9] Diagnosis: ALLERGIC RHINITIS[ICD9: 477.9] Karma Bahena MD [facility] CPT-4: 28299 03/20/2014 ([id number]) 43225 EST. PATIENT, LEVEL IV Diagnosis: ESSENTIAL HYPERTENSION[ICD9: 401.9] Diagnosis: ATRIAL FIBRILLATION[ICD9: 427.31] Diagnosis: Irritable bowel[ICD9: 564.1] Karma Bahena MD [facility] CPT-4: 35301 03/05/2014 ([id number]) 02949 EST. PATIENT, LEVEL IV Diagnosis: Esophageal reflux[ICD9: 530.81] Diagnosis: DIARRHEA[ICD9: 787.91] Diagnosis: ABDOM PAIN NOS SITE[ICD9: 789.00] Karma Bahena MD [facility] CPT- 4: 26678 01/29/2014 ([id number]) 92870 EST. PATIENT, LEVEL III Diagnosis: Irritable bowel[ICD9: 564.1] Diagnosis: DIARRHEA[ICD9: 787.91] Laura Bahena MD [facility] CPT-4: 50456 01/14/2014 ([id number]) 75569 EST. PATIENT, LEVEL IV Diagnosis: ESSENTIAL HYPERTENSION[ICD9: 401.9] Diagnosis: ATRIAL FIBRILLATION[ICD9: 427.31] Diagnosis: URGE INCONTINENCE[ICD9: 788.31] Diagnosis: MALAISE AND FATIGUE[ICD9: 780.79] Diagnosis: Dyspnea[ICD9: 786.09] Karma Bahena MD [facility] CPT-4: 21662 12/25/2013 ([id number]) 82377 EST. PATIENT, LEVEL IV Diagnosis: ESSENTIAL HYPERTENSION[SNOMED: 99789534] Diagnosis: ATRIAL FIBRILLATION[ICD9: 427.31] Diagnosis: Abdominal pain[ICD9: 789.00] Diagnosis: ESOPHAGEAL REFLUX[ICD9: 530.81] Karma Bahena MD [facility] CPT-4: 73081 11/27/2013 ([id number]) 29840 EST. PATIENT, LEVEL IV Diagnosis: ESSENTIAL HYPERTENSION[SNOMED: 66967016] Diagnosis: ATRIAL FIBRILLATION[ICD9: 427.31] Diagnosis: Chronic osteoarthritis[ICD9: 715.90] Karma Bahena MD [facility] CPT- 4: 66356 09/12/2013 ([id number]) 34106 EST. PATIENT, LEVEL III Diagnosis: ESSENTIAL HYPERTENSION[SNOMED: 05024530] Diagnosis: Bruising[ICD9: 924.9] Diagnosis: ENCNTR LONG-RX USE NEC[ICD9: V58.69] Karma Bahena MD [facility] CPT- 4: 80874 08/15/2013 ([id number]) 42273 EST. PATIENT, LEVEL IV Diagnosis: ESSENTIAL HYPERTENSION[SNOMED: 75561854] Diagnosis: Hematuria[ICD9: 599.70] Diagnosis: Dysuria[ICD9: 788.1] Karma Bahena MD [facility] CPT-4: 00335 08/01/2013 ([id number]) 53745 EST. PATIENT, LEVEL III Diagnosis: UTI[ICD9: 599.0] Diagnosis: Hematuria[ICD9: 599.70] Laura Bahena MD [facility] CPT-4: 48244 07/01/2013 ([id number]) 21878 EST. PATIENT, LEVEL III Diagnosis: ATRIAL FIBRILLATION[ICD9: 427.31] Diagnosis: ESSENTIAL HYPERTENSION[SNOMED: 02171571] Karma Bahena MD [facility] CPT-4: 12997 05/29/2013 ([id number]) 48846 EST. PATIENT, LEVEL IV Diagnosis: Atrial fibrillation[ICD9: 427.31] Diagnosis: Encounter for monitoring digoxin therapy[ICD9: V58.83] Diagnosis: ESSENTIAL HYPERTENSION[SNOMED: 35776586] Karma Bahena MD [facility] CPT-4: 71391 05/15/2013 ([id number]) 22761 EST. PATIENT, LEVEL IV Diagnosis: ESSENTIAL HYPERTENSION[SNOMED: 76892806] Diagnosis: ATRIAL FIBRILLATION[ICD9: 427.31] Diagnosis: PALPITATIONS[ICD9: 785.1] Diagnosis: Dizziness and giddiness[ICD9: 780.4] Karma Bahena MD, [facility] CPT- 4: 69875 04/23/2013 ([id number]) 88943 EST. PATIENT, LEVEL III Diagnosis: OTHER CONSTIPATION[ICD9: 564.09] Diagnosis: ABDOM PAIN NOS SITE[ICD9: 789.00] Laura Bahena MD, [facility] CPT- 4: 38432 03/21/2013 ([id number]) 56614 EST. PATIENT, LEVEL IV Diagnosis: ESSENTIAL HYPERTENSION[SNOMED: 17325590] Diagnosis: Atrial fibrillation[ICD9: 427.31] Karma Bahena MD [facility] CPT- 4: 47395 01/16/2013 ([id number]) Miscellaneous no charge Diagnosis: CELLULITIS OF HAND[ICD9: 682.4] Karma Bahena MD [facility] CPT-4: 14874 12/19/2012 ([id number]) Miscellaneous no charge Diagnosis: ENCOUNTER FOR THERAPEUTIC DRUG MONITORING[ICD9: V58.83] Diagnosis: CELLULITIS OF HAND[ICD9: 682.4] Karma Bahena MD [facility] CPT-4: 97061 12/14/2012 Miscellaneous no charge Diagnosis: CELLULITIS OF HAND[ICD9: 682.4] Karma Bahena MD [facility] CPT-4: 34484 12/12/2012 56573 EST. PATIENT, LEVEL II Diagnosis: CELLULITIS OF HAND[ICD9: 682.4] Diagnosis: ENCNTR LONG-RX USE NEC[ICD9: V58.69] Diagnosis: LONG-TERM USE ANTICOAGUL[ICD9: V58.61] Karma Bahena MD [facility] CPT-4: 82403 12/11/2012 ([id number]) 80949 EST. PATIENT, LEVEL III Diagnosis: CELLULITIS OF HAND[ICD9: 682.4] Karma Bahena MD [facility] CPT-4: 32539 12/10/2012 ([id number]) [id number] EST. PATIENT, LEVEL IV Diagnosis: Elevated digoxin level[ICD9: 796.0] Diagnosis: ATRIAL FIBRILLATION[ICD9: 427.31] Diagnosis: Inflammatory arthritis[ICD9: 714.9] Karma Bahena MD [facility] CPT- 4: 41229 10/30/2012 ([id number]) 90423 EST. PATIENT, LEVEL IV Diagnosis: Atrial fibrillation[ICD9: 427.31] Diagnosis: Anticoagulant long-term use[ICD9: V58.61] Diagnosis: ESSENTIAL HYPERTENSION[SNOMED: [id number]] Karma Bahena MD, [facility] CPT-4: 86729 08/08/2012 ([id number]) 50090 EST. PATIENT, LEVEL IV Diagnosis: ABDOM PAIN NOS SITE[ICD9: 789.00] Diagnosis: Constipation - functional[ICD9: 564.09] Diagnosis: EDEMA[ICD9: 782.3] Diagnosis: ATRIAL FIBRILLATION[ICD9: 427.31] Karma Bahena MD [facility] CPT- 4: 13526 07/11/2012 ([id number]) 06587 EST. PATIENT, LEVEL III Diagnosis: Cystocele[ICD9: 618.01] Diagnosis: Rectocele[ICD9: 618.04] [facility] CPT-4: 58123 05/08/2012 ([id number]) 24142 EST. PATIENT, LEVEL IV Diagnosis: Atrial fibrillation[ICD9: 427.31] Diagnosis: ESSENTIAL HYPERTENSION[SNOMED: 41110618] Diagnosis: Status post small bowel resection[ICD9: V45.89] Diagnosis: ENCNTR LONG-ANTICOAG USE[ICD9: V58.61] Karma Bahena MD, [facility] CPT-4: 84130 04/18/2012 ([id number]) Patient admitted to the hospital from clinic (NO CHARGE) Diagnosis: Abdominal pain[ICD9: 789.00] Diagnosis: Nausea and vomiting[ICD9: 787.01] Diagnosis: ESSENTIAL HYPERTENSION[SNOMED: 44433193] [facility] CPT-4: 13510U 03/13/2012 ([id number]) 95983 EST. PATIENT, LEVEL IV Diagnosis: ATRIAL FIBRILLATION[ICD9: 427.31] Diagnosis: URGE INCONTINENCE[ICD9: 788.31] Diagnosis: MALAISE AND FATIGUE[ICD9: 780.79] Diagnosis: Dyspnea[ICD9: 786.09] [facility] CPT-4: 62011 02/20/2012 34555 EST. PATIENT, LEVEL IV Diagnosis: Hematuria[ICD9: 599.70] Diagnosis: Vaginal yeast infection[ICD9: 112.1] Diagnosis: ATRIAL FIBRILLATION[ICD9: 427.31] Laura [facility] CPT- 4: 83313 02/13/2012 ([id number]) 19688 EST. PATIENT, LEVEL IV Diagnosis: Atrial fibrillation[ICD9: 427.31] Diagnosis: Anticoagulation goal of INR 2 to 3[ICD9: V58.83] Diagnosis: Urinary incontinence, urge[ICD9: 788.31] Diagnosis: ESSENTIAL HYPERTENSION[SNOMED: 73837686] Karma Bahena MD [facility] CPT-4: 16602 02/01/2012 ([id number]) 25688 EST. PATIENT, LEVEL IV Diagnosis: Atrial fibrillation[ICD9: 427.31] Diagnosis: Anticoagulant long-term use[ICD9: V58.61] Diagnosis: ESSENTIAL HYPERTENSION[SNOMED: 80781856] Karma Bahena MD [facility] CPT-4: 60335 2012 35828 EST. PATIENT, LEVEL IV Diagnosis: UTI[ICD9: 599.0] Diagnosis: ESSENTIAL HYPERTENSION[SNOMED: 73243399] Diagnosis: MALAISE AND FATIGUE[ICD9: 780.79] Diagnosis: Esophageal reflux[ICD9: 530.81] Karma Bahena MD, [facility] CPT-4: 77075 12/01/2011 ([id number]) 73077 EST. PATIENT, LEVEL IV Diagnosis: UTI (urinary tract infection)[ICD9: 599.0] Diagnosis: ESSENTIAL HYPERTENSION[SNOMED: 43569032] Diagnosis: URGE INCONTINENCE[ICD9: 788.31] Karma Bahena MD [facility] CPT-4: 02645 11/23/2011 ([id number]) 86959 EST. PATIENT, LEVEL IV Diagnosis: ESSENTIAL HYPERTENSION[SNOMED: 45479024] Diagnosis: IMPACTED CERUMEN[ICD9: 380.4] Diagnosis: MALAISE AND FATIGUE[ICD9: 780.79] Diagnosis: EDEMA[ICD9: 782.3] Karma Bahena MD, [facility] CPT-4: 50455 10/03/2011 02111 EST. PATIENT, LEVEL IV Diagnosis: ESSENTIAL HYPERTENSION[SNOMED: 12385685] Diagnosis: Generalized osteoarthritis[ICD9: 715.09] Diagnosis: OSTEOPOROSIS[ICD9: 733.00] Karma Bahena MD, [facility] CPT-4: 97562 08/08/2011 88000 EST. PATIENT, LEVEL IV Diagnosis: Muscle cramp[ICD9: 729.82] Diagnosis: Torticollis[ICD9: 723.5] Diagnosis: Rash[ICD9: 782.1] Karma Bahena MD, [facility] CPT-4: 19212 05/09/2011 35047 EST. PATIENT, LEVEL IV Diagnosis: Leg cramps, sleep related[ICD9: 327.52] Diagnosis: Underweight[ICD9: 783.22] Karma Bahena MD, [facility] CPT-4: 11145 03/29/2011 26957 EST. PATIENT, LEVEL IV Diagnosis: UTI[ICD9: 599.0] Diagnosis: Urge incontinence[ICD9: 788.31] Diagnosis: Loss of weight[ICD9: 783.21] Diagnosis: Palpitations[ICD9: 785.1] Diagnosis: Peripheral neuropathy, idiopathic[ICD9: 356.9] Karma Bahena MD, [facility] CPT-4: 98929 03/15/2011 Plan of Care Planned Activity Notes Codes Status Date Appointment: Karma Bahena WPtel: [facility]4 [facility] (15 min) Moderate 11/14/2018 Visit Plan: Hypothyroidism [...] for imvexxy 10/31/2018 Appointment: Karma Bahena WPtel: [facility] (15 min) Moderate 10/31/2018 Patient Education: Patient Medication Summary Completed 10/31/2018 Visit Plan: Hand pain with arthritis - Raynaud syndrome - discussed with pt - RX for Voltaren gel sent to the pharmacy. continue with amlodipine. 10/09/2018 Appointment: Karma Bahena WPtel: [facility]4 [facility]6676[facility] (15 min) Moderate 10/09/2018 Patient Education: Patient Medication Summary Completed 10/09/2018 Appointment: Karma Bahena WPtel: [facility]2 [facility]6676[facility] (15 min) Moderate 10/01/2018 Visit Plan: [...] or concerns. 09/12/2018 Appointment: Katharine Dai WPtel: [facility]66[facility] (15 min) Moderate 09/12/2018 Patient Education: Patient Medication Summary Completed 09/12/2018 Appointment: Karma Bahena WPtel: [facility]9 [facility] (15 min) Moderate 08/16/2018 Visit [...] surgically removed. 08/14/2018 Appointment: Karma Bahena WPtel: [address] [place], [place] [phone] (15 min) Moderate 08/14/2018 Patient Education: Patient [...] surgically removed. 07/26/2018 Appointment: Karma Bahena WPtel: [facility]5 [facility] [place] (15 min) Moderate 07/26/2018 Patient Education: [...] not improving. 06/04/2018 Appointment: Karma Bahena WPtel: [facility] (15 min) Moderate 06/04/2018 Patient Education: Patient Medication Summary Completed 06/04/2018 Appointment: Karma Bahena WPtel: [address] [place], [place] [address] (15 min) Moderate 03/14/2018 Visit Plan: Hypertension [...] q 3 months or q 6 m [facility] based on previous levels of control. 01/31/2018 Appointment: Katharine Dai WPtel: [facility]5 [facility] [place] [address] - Annual Wellness Visit 01/31/2018 Patient Education: [...] allergy spray. 12/14/2017 Appointment: Karma Bahena WPtel: [facility]0 [facility]66[facility] (15 min) Moderate 12/14/2017 Patient Education: Patient [...] allergy spray. 12/07/2017 Appointment: Katharine Dai WPtel: [facility]4 [facility]6676[facility] (15 min) Moderate 12/07/2017 Patient Education: Patient [...] of control. 11/14/2017 Appointment: Kar[facility] Bahena WPtel: [phone] [facility] (15 min) Moderate 11/14/2017 Patient Education: Patient [...] today. 03/27/2017 Appointment: Kar[facility] Bahena WPtel: [phone] [facility] (15 min) Moderate 03/27/2017 Patient Education: Patient [...] care surrogate. 01/23/2017 Appointment: Katharine Dai WPtel: [facility]0 [facility] [facility] - Annual Wellness Visit 01/23/2017 Patient [...] becoming uncontrolled. 01/19/2017 Appointment: Karma Bahena WPtel: [facility]6 [facility] (15 min) Moderate 01/19/2017 Patient Education: Patient Medication Summary Completed 01/19/2017 Care Plan: Referral Order SNOMED-CT : [id number] Pending 01/19/2017 Appointment: Karma Bahena WPtel: [facility]9 [facility] (15 min) Moderate 01/04/2017 Appointment: Karma Bahena WPtel: [facility]8 [facility] (15 min) Moderate 12/28/2016 Visit Plan: FPK-dotrb-cha zpack-call if symptoms do not resolve or if any worse. Patient verbalized understanding of plan. 11/29/2016 Appointment: Laura Colin WPtel: [facility]9 [phone] (15 min) Moderate 11/29/2016 Patient Education: Patient [...] patient's pharmacy. 11/23/2016 Appointment: Katharine Dai WPtel: [facility]8 [facility] (15 min) Moderate 11/23/2016 Patient Education: Patient Medication Summary Completed 11/23/2016 Visit Plan: Pharyngitis-Discussed natural and expected course of this diagnosis and need to alert me if symptoms do not follow expected course, or if any worse. Recommended salt water gargles as needed for pain. Ty lenol/motrin as needed for fever/discomfort. 11/21/2016 Appointment: Laura Colin WPtel: [facility]7 [phone] (15 min) Moderate 11/21/2016 Patient Education: Patient [...] monitor symptoms. 11/08/2016 Appointment: Karma Bahena WPtel: [facility]0 [facility] (10 min) Simple 11/08/2016 Patient [...] bactroban, etc. 11/02/2016 Appointment: Karma Bahena WPtel: [facility]2 [facility] (15 min) Moderate 11/02/2016 Appointment: Nurse Visit 11/02/2016 Patient Education: Patient Medication Summary Completed 11/02/2016 Appointment: Nurse Visit 10/31/2016 Visit Plan: Laceration-right forearm- Pt was instructed to keep the wound clean, cleanse with sterile saline, use bactroban ointment, call if redness, pustular drainage, or any other acute concerns. Follow up Monday for dressing changes. 10/27/2016 Appointment: Laura Colin WPtel: [phone] [phone] [place] (30 min) Complex 10/27/2016 Patient Education: [...] in symptoms. 08/31/2016 Appointment: Karma Bahena WPtel: [facility]3 [facility] (15 min) Moderate 08/31/2016 Patient [...] your swelling. 07/27/2016 Appointment: Karma Bahena WPtel: [facility]5 [facility] (15 min) Moderate 07/27/2016 Patient Education: Patient [...] of lasix 06/23/2016 Appointment: Karma Bahena WPtel: [facility]6 [facility] (15 min) Moderate 06/23/2016 Patient Education: Patient Medication Summary Completed 06/23/2016 Patient Education: Hypertension Completed 06/23/2016 Visit Plan: Edema - with Dyspnea - RX for laxis and compression socks - pt to call if not improving. 06/09/2016 Appointment: Karma Bahena WPtel: [address] [place], [place] [address] [place] (15 min) Moderate 06/09/2016 Patient Education: Patient Medication Summary Completed 06/09/2016 Visit Plan: Abdominal pain and rectal itching - recommended pt to use betamethasone on vaginal/rectal region, monitor symptoms call if not improving. Continue with beano and simethicone 05/25/2016 Appointment: Karma Bahena WPtel: [phone] [facility] (15 min) Moderate 05/25/2016 Patient Education: Patient Medication Summary Completed 05/25/2016 Care Plan: SCREENINGMAMMOGRAPHYDIGITAL [facility] 211[address]-8 Pending 05/20/2016 Visit Plan: Abdominal distension - use simethicone four times daily - after meals - if it does not help - in the next two weeks - call the office and we will do a ct scan of the abdomen and pelvis 05/17/2016 Appointment: Karma Bahena WPtel: [phone] [facility] (15 min) Moderate 05/17/2016 Patient Education: Patient [...] steroid ointment 03/24/2016 Appointment: Karma Bahena WPtel: 101 [facility] (30 min) Complex 03/24/2016 Patient Education: Patient [...] allergy spray. 12/21/2015 Appointment: Laura Colin WPtel: [phone] [phone] (30 min) Complex 12/21/2015 Patient Education: Patient [...] becoming uncontrolled. 11/03/2015 Appointment: Karma Bahena WPtel: [phone] [facility] (15 min) Moderate 11/03/2015 Patient [...] had left kidney and ureter removed in [place]-doing well 09/01/2015 Appointment: (30 min) Complex 09/01/2015 Patient Education: Patient Medication Summary Completed 09/01/2015 Patient Education: Hypertension Completed 09/01/2015 Appointment: Karma Bahena WPtel: [phone] [facility] (15 min) Moderate 07/13/2015 Visit Plan: Hematuria/Urethritis [...] 05/13/2015 Care Plan: Referral Order SNOMED-CT : [id number] Ordered 05/08/2015 Visit Plan: Atrial Fibrillation - [...] Collins. 05/07/2015 Appointment: Karma Bahena WPtel: [phone] [facility] [place] (15 min) Moderate 05/07/2015 Patient Education: [...] becoming uncontrolled. 10/30/2014 Appointment: Karma Bahena WPtel: [facility]5 [facility] Follow up 10/30/2014 Patient Education: Patient Medication Summary Completed 10/30/2014 Appointment: Karma Bahena WPtel: [address] [place], [place] [phone] Follow up 07/22/2014 Visit Plan: Atrial Fibrillation [...] in hospital. 07/11/2014 Appointment: Karma Bahena WPtel: [address] [place], [place] [address] Sick 07/11/2014 Patient Education: Patient Medication Summary Completed 07/11/2014 Appointment: Karma Bahena WPtel: [address] [place], [place] [address] Follow up 07/07/2014 Visit Plan: Urinary incontinence and recurrent UTI's - doctor will refer to Dr. Joel Collins - for nonsurgical intervention for potential electrical stimulation/training of pelvic floor muscles - for strengthening - can start on the treatment when you get back from [place] - will also ask him about doing a cystoscopy to look into bladder to see if there is any bladder irritation. keep using the Premarin - use about 25Cent size of cream onto finger to apply to urethra and do this three times weekly. 05/20/2014 Appointment: Karma Bahena WPtel: [address] [place], [place] [phone] Follow up 05/20/2014 Patient Education: Patient Medication Summary Completed 05/20/2014 Appointment: Karma Bahena WPtel: [address] [place], [place] [phone] Lab Draw 05/14/2014 Patient Education: Patient Medication [...] recommended vesicare. 04/29/2014 Appointment: Karma Bahena WPtel: [address] [place] [address] Follow up 04/29/2014 Patient Education: Patient Medication [...] spray. 03/20/2014 Appointment: Karma Bahena WPtel: [phone] [facility] Sick 03/20/2014 Patient Education: Patient [...] becoming uncontrolled. 03/05/2014 Appointment: Karma Bahena WPtel: [phone] [facility] Follow up 03/05/2014 Patient Education: [...] with report. 01/29/2014 Appointment: Karma Bahena WPtel: [facility]5 [facility] Follow up 01/29/2014 Patient Education: [...] exposure,and dyspnea on exertion - will ask [place] [facility] Patient do an overnight oxygen study on [place] as she has cardiac history, weight loss, and nocturnal hypoxemia may be a part of her weight loss and fatigue. 12/25/2013 Appointment: Krama Bahena WPtel: [phone] [facility] Follow up 12/25/2013 Patient Education: [...] twice daily. 11/27/2013 Appointment: Karma Bahena WPtel: [phone] [facility] Follow up 11/27/2013 Patient Education: Patient Medication [...] rate. Osteoarthritis - send pt to [facility] physical therapy for gereral osteoarhtritis program for strengthening and pain reduction. Hypertension - well controlled - continue with current medications, continue with no added salt diet. Pt has been encouraged to exercise daily. The pt has been advised to call the office if there are any acute concerns about change in blood pressure readings at home. 09/12/2013 Appointment: Karma Bahena WPtel: [phone] [facility] Follow up 09/12/2013 Patient Education: Patient Medication Summary Completed 09/12/2013 Patient Education: Hypertension Completed 09/12/2013 Appointment: Karma Bahena WPtel: [phone] [facility] Follow up 08/21/2013 Visit Plan: [...] coumadin-check PT/INR 08/15/2013 Appointment: Karma Bahena WPtel: [facility]5 [place] [phone] Follow up 08/15/2013 Patient Education: Patient Medication [...] of urethra. 08/01/2013 Appointment: Karma Bahena WPtel: [facility]5 [facility] Follow up 08/01/2013 Patient Education: Patient Medication Summary Completed 08/01/2013 Patient Education: Hypertension Completed 08/01/2013 Appointment: Laura Colin WPtel: [facility]5 [phone] [place] Lab Draw 07/29/2013 Patient Education: Patient Medication Summary Completed 07/29/2013 Visit Plan: Osteoporosis-prolia on june 25-patient to let Dr Hansen know 07/01/2013 Appointment: Laura Colin WPtel: [facility]5 [phone] Follow up 07/01/2013 Appointment: Karma Bahena WPtel: [address] [place], [place] [address] [place] Follow up 07/01/2013 Patient Education: Patient Medication Summary Completed 07/01/2013 Appointment: Karma Bahena WPtel: [address] [place] [address] [place] Follow up 06/25/2013 Appointment: Karma Bahena WPtel: [address] [place] [address] [place] Lab Draw 06/20/2013 Patient Education: Patient Medication Summary Completed 06/20/2013 Appointment: Karma Bahena WPtel: [address] [place] [address] [place] Lab Draw 06/19/2013 Visit Plan: Atrial [...] home. 05/29/2013 Appointment: Karma Bahena WPtel: [phone] [facility] Follow up 05/29/2013 Patient Education: [...] at home. 05/15/2013 Appointment: Karma Bahena WPtel: [phone] [facility] Other 05/15/2013 Patient Education: Patient [...] shot today. 04/23/2013 Appointment: Karma Bahena WPtel: [phone] [facility] [place] Other 04/23/2013 Patient Education: [...] this regimen. 03/21/2013 Appointment: Laura Colin WPtel: [address] [place], [place] [id number] Follow up 03/21/2013 Patient Education: Patient Medication [...] becoming uncontrolled. 01/16/2013 Appointment: Karma Bahena WPtel: [address] [place], [place] [phone] Follow up 01/16/2013 Patient Education: Patient Medication Summary Completed 01/16/2013 Patient Education: Hypertension Completed 01/16/2013 Visit Plan: Wound Instructions - Pt was instruced to keep the wound clean, wash with antibacterial soap, use triple antibiotic ointment, call if redness, pustular drainage, or any other acute conerns. 12/19/2012 Appointment: Karma Bahena WPtel: [address] [place], [place] [phone] Other 12/19/2012 Patient Education: Patient Medication Summary Completed 12/19/2012 Patient Education: Patient Medication Summary Completed 12/17/2012 Visit Plan: Cellulitis - improved- monitor symptoms - need to check handon Monday morning. 12/14/2012 Appointment: Karma Bahena WPtel: [address] [place], [place] [phone] Follow up 12/14/2012 Patient Education: Patient Medication Summary Completed 12/14/2012 Visit Plan: Cellulitis - improved- monitor symptoms - need to check handon Monday morning. 12/12/2012 Appointment: Karma Bahena WPtel: [address] [place], [place] [phone] Work-in 12/12/2012 Patient Education: Patient Medication Summary [...] warmth, discharge. 12/10/2012 Appointment: Karma Bahena WPtel: [facility]5 [facility] Other 12/10/2012 Patient Education: Patient [...] becoming uncontrolled. 10/30/2012 Appointment: Karma Bahena WPtel: [facility]5 [facility] Follow up 10/30/2012 Patient Education: Patient Medication Summary Completed 10/30/2012 Appointment: Laura Colin WPtel: [facility]6 [phone] Lab Draw 09/13/2012 Patient Education: Patient Medication [...] 3.5. 08/08/2012 Appointment: Karma Bahena WPtel: [phone] [facility] Other 08/08/2012 Patient Education: Patient Medication Summary [...] this regimen. 07/11/2012 Appointment: Karma Bahena WPtel: [facility]5 [facility] swelling, leg edema Other 07/11/2012 Patient Education: [...] vaginally. 05/08/2012 Appointment: Karma Bahena WPtel: [phone] [facility] Follow up 05/08/2012 Patient Education: Patient Medication [...] during hospitalization. 04/18/2012 Appointment: Karma Bahena WPtel: [facility]5 [facility] Follow up 04/18/2012 Patient Education: Patient Medication Summary Completed 04/18/2012 Patient Education: High Blood Pressure: Essential Hypertension Completed 04/18/2012 Appointment: Karma Bahena WPtel: [phone] [facility] [place] Follow up 04/09/2012 Appointment: Karma Bahena WPtel: [phone] [facility] [place] Lab Draw 04/04/2012 Appointment: Laura Colin WPtel: [phone] [phone] [place] Lab Draw 03/19/2012 Visit Plan: Abdominal [...] Hypertension Completed 03/13/2012 Appointment: Karma Bahena WPtel: [phone] [facility] [place] Lab Draw 03/08/2012 Patient Education: Patient [...] rehab. 02/20/2012 Appointment: Karma Bahena WPtel: [phone] [facility] [place] Other 02/20/2012 Patient Education: Patient Medication Summary [...] uncontrolled. 02/13/2012 Appointment: Laura Colin WPtel: [phone] [phone] Other 02/13/2012 Patient Education: Patient Medication Summary Completed 02/13/2012 Appointment: Karma Bahena WPtel: [phone] [facility] [place] Lab Draw 02/07/2012 Visit Plan: Atrial [...] the medication. 02/01/2012 Appointment: Karma Bahena WPtel: [facility]5 [facility] [place] Other 02/01/2012 Patient Education: Patient Medication Summary Completed 02/01/2012 Patient Education: High Blood Pressure: Essential Hypertension Completed 02/01/2012 Appointment: Karma Bahena WPtel: [facility]5 [facility] [place] Lab Draw 01/17/2012 Visit Plan: Atrial [...] at home. 2012 Appointment: Karma Bahena WPtel: [phone] [facility] Other 2012 Patient Education: Patient Medication Summary Completed 2012 Patient Education: High Blood Pressure: Essential Hypertension Completed 2012 Appointment: Karma Bahena WPtel: 1012 [facility] Follow up 12/20/2011 Visit Plan: Dicyclomine up [...] emergency room. 12/01/2011 Appointment: Karma Bahena WPtel: 1019 [facility] Other 12/01/2011 Patient Education: Patient Medication Summary [...] infection resolves. 11/23/2011 Appointment: Laura Colin WPtel: [address] [place], [place] [phone] [place] [address] Other 11/23/2011 Patient Education: Patient Medication Summary Completed 11/23/2011 Patient Education: High Blood Pressure: Essential Hypertension Completed 11/23/2011 Visit Plan: Cerumen Impaction - The impacted cerumen was removed with the use of either ear currette alone or in combination with ear curette and water pick. The patient tolerated the procedure without incident and had improvement in hearing 10/17/2011 Appointment: Laura Colin WPtel: [address] [place], [place] [phone] [place] [address] Other 10/17/2011 Patient Education: Patient Medication Summary [...] by irrigation. 10/03/2011 Appointment: Karma Bahena WPtel: [facility]2 [facility] [place] Other 10/03/2011 Patient Education: Patient Medication Summary [...] is evidence. 08/08/2011 Appointment: Karma Bahena WPtel: [address] [place] [address] Other 08/08/2011 Patient Education: Patient Medication Summary Completed 08/08/2011 Patient Education: High Blood Pressure: Essential Hypertension Completed 08/08/2011 Visit Plan: Muscle cramps - the cramps are a little better, continue with the Diltiazem and it is okay to use the over the counter supplement with quinine - but use it sparingly. For the rash, use the prescripti on the recovery unit operator prescribed for the itching , call if the rash is not improved. Torticollis - continue with physical therapy, call if the neck muscles do not continue to show improvement. 05/09/2011 Appointment: Karma Bahena WPtel: [address] [place] [address] Other 05/09/2011 Patient Education: Patient Medication Summary [...] water aerobics. 03/29/2011 Appointment: Karma Bahena WPtel: [facility]5 [facility] Other 03/29/2011 Patient Education: Patient Medication Summary Completed 03/29/2011 Appointment: Karma Bahena WPtel: [facility]0 [facility] Other 03/17/2011 Visit Plan: UTI - UA negative. Urge incontinence- restart on the vesicare- at 5 mg. Continue to avoid caffinated foods/fluids. Peripheral Neuropathy - per director of resource development report - Continue with the metanex. Loss of weight - WEIGHT CHECK IN 2 WKS. Palpitations- likely stress induced. If the symptoms worsen, call the office. 03/15/2011 Appointment: Migdalia Bahenay WPtel: [id number] Follow up 03/15/2011 Patient Education: Patient Medication Summary Completed 03/15/2011 Visit Plan: Rocephin 500mg IM 03/04/2011 Patient Education: Patient Medication Summary Completed 03/04/2011 Referral: Dr Jeff Referral Appointment Requested Referral: Corby Collins Referral Appointment Requested Instructions Comment . Atrial Fibrillation - pt on chronic [...] therefore, would not change the medication. . [id number]-[id number] zpack-call if symptoms do not resolve or if any worse. Patient verbalized understanding of plan. . Allergies - chronic - recommended pt [...] in the nasal steroid allergy spray. . URI - Pt advised to increase [...] use betamethasone ointment on rectal tissue . Hypothyroidism - pt with chronic hypothyroidism, [...] Post-menopausal vaginal atrophy - rx for imvexxy rita hen hearing aide drying beads - [...] Fstigue and dypnea- recommended cardiac rehab. . Cellulitis - improved- monitor symptoms - need to check handon Monday morning. . Abdominal pain and rectal itching - recommended pt to use betamethasone on vaginal/rectal region, monitor symptoms call if not improving. Continue with beano and simethicone . Atrial Fibrillation - pt on chronic anticoagulation and is currently rate controlled. The pt is to have labs done as appropriate to monitor medication levels and is to report if they start to feel as if their heart rate is becoming uncontrolled. Digoxin and Coumadin doses are good for control of anticoagulation and heart rate. Osteoarthritis - send pt to [facility] physical therapy for gereral osteoarhtritis program [...] For the rash, use the prescription the recovery unit operator prescribed for the itching , call if [...] in blood pressure readings at home. . Gout Attack - Pt complains of [...] avoid caffinated foods/fluids. Peripheral Neuropathy - per director of resource development report - Continue with the metanex. Loss [...] to help decrease irritation of urethra. . Edema - with Dyspnea - RX for laxis and compression socks - pt to call if not improving. . ua obtained, no need for culture at this time. . I have called Dr. Rock about [...] would need to be surgically removed. . Cerumen Impaction - The impacted cerumen [...] patient stabilized during the removal process. . Hypertension - well controlled - continue [...] in symptoms, worsening redness, warmth, discharge. . Cerumen Impaction - The impacted cerumen was removed with the use of either ear currette alone or in combination with ear curette and water pick. The patient tolerated the procedure without incident and had improvement in hearing . Cyst - epidermal cyst - pt [...] their heart rate is becoming uncontrolled. . Cellulitis - improved- monitor symptoms - [...] continue with supportive care, bactroban, etc. . Hypertension - well controlled - continue [...] concerns. Follow up Monday for dressing changes. change the thyroid to 1/2 pill on [...] fecal symptoms - referral to Dr. Collins. diflucan 150mg daily x 7 days - [...] if this helps with your swelling. . Atrial Fibrillation - pt on chronic [...] is to go to the emergency room. . Wound Instructions - Pt was instruced to keep the wound clean, wash with antibacterial soap, use triple antibiotic ointment, call if redness, pustular drainage, or any other acute conerns. IF HEART RATE UNDER 60 CONSISTENTLY TAKE [...] had left kidney and ureter removed in [place]- doing well . Hematuria - check UA. [...] any worse. RX sent to patient's pharmacy. Return in 10 days for follow up [...] 10mg daily after acute infection resolves. . Hand pain with arthritis - Raynaud [...] pneumonia vaccine was given in hospital. . Rocephin 500mg IM get some hylands for leg cramps. Hypertension [...] exposure,and dyspnea on exertion - will ask [place] do an overnight oxygen study on [place] as she has cardiac history, weight loss, and nocturnal hypoxemia may be a part of her weight loss and fatigue. pt is to stop her omeprazole and [...] weight that was lost during hospitalization. . Hypertension - well controlled - continue [...] the treatment when you get back from [place] - will also ask him about doing [...] the treatment when you get back from [place] - will also ask him about doing [...] acute concerns. Bruising-left leg-no injuury-on coumadin-check PT/INR . Hematuria/Urethritis - Pt uses Premarin for [...] aide the insertion of the medication vaginally. boil ease or recticare - if having acute or worsening discomfort - call doctor - may need an antibiotic. MUCINEX 600mg twice daily for decrease in mucus in throat . boil ease or recticare - if having acute or worsening discomfort - call doctor - may need an antibiotic. MUCINEX 600mg twice daily for decrease in mucus in throat . Medicare Exam - today we discussed [...]
[2018-12-10 18:04] LABS: BILIRUBIN,URINE NEGATIVE (NEGATIVE); CLARITY,URINE CLEAR; COLOR,URINE YELLOW; GLUCOSE, URINE (UA) NEGATIVE (NEGATIVE); KETONES,URINE NEGATIVE (NEGATIVE); LEUKOCYTE ESTERASE ,URINE NEGATIVE (NEGATIVE); NITRITE,URINE NEGATIVE (NEGATIVE); PH,URINE 7 (5-9); PROTEIN,URINE NEGATIVE (NEGATIVE); UROBILINOGEN,URINE NORMAL (NORMAL)
--- OUTSIDE RECORDS SUMMARY | 2018-12-10 18:08 | XMS REPORT | CCD ---
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 Unknown Has never used illegal drugs 03/15/2011 Allergies, Adverse Reactions, Alerts Substance Reaction Codes Entered Date Inactivated Date Status AUGMENTIN diarrhea RxNorm: 419237 2016 No Inactive Date Active Past Medical History Illness Codes Condition Status Onset Date Resolved Date Encounter for general adult medical examination with abnormal findings ICD-9: V70.0 ICD-10: Z00.01 Active 01/23/2017 Unknown Chronic atrial fibrillation ICD-9: 427.31 ICD-10: I48.2 Active 12/25/2013 Unknown Dysphonia ICD-9: 784.42 ICD-10: R49.0 Active 01/19/2017 Unknown Essential (primary) hypertension ICD-9: 401.1 ICD-10: I10 Active 01/19/2017 Unknown Acute upper respiratory infection, unspecified ICD-9: 465.9 ICD-10: J06.9 Active 12/20/2015 Unknown Cough ICD-9: 786.2 ICD-10: R05 Active 11/23/2016 Unknown Acute laryngopharyngitis ICD-9: 465.0 ICD-10: J06.0 Active 11/21/2016 Unknown Laceration without foreign body of right forearm, subsequent encounter ICD-9: V58.89 ICD-10: S51.811D Active 11/08/2016 Unknown Laceration without foreign body of right forearm, initial encounter ICD-9: 881.00 ICD-10: S51.811A Active 10/27/2016 Unknown Atrophy of thyroid (acquired) ICD-9: 244.8 ICD-10: E03.4 Active 11/02/2016 Unknown Essential (primary) hypertension ICD-9: 401.9 ICD-10: I10 Active 12/25/2013 Unknown Abdominal distension (gaseous) ICD-9: 787.3 ICD-10: R14.0 Active 03/22/2015 Unknown Localized edema ICD-9: 782.3 ICD-10: R60.0 Active 06/09/2016 Unknown Irritable bowel syndrome without diarrhea ICD-9: 564.1 ICD-10: K58.9 Active 01/14/2014 Unknown Pruritus ani ICD-9: 698.0 ICD-10: L29.0 Active 05/24/2016 Unknown Encounter for screening mammogram for malignant neoplasm of breast ICD-9: V76.12 ICD-10: Z12.31 Active 05/12/2014 Unknown Encounter for immunization ICD-9: V04.81 ICD-10: Z23 Active 04/18/2012 Unknown First degree hemorrhoids ICD-9: 455.6 ICD-10: K64.0 Active 03/23/2016 Unknown Epidermal cyst ICD-9: 706.2 ICD-10: L72.0 Active 02/01/2016 Unknown Other senior care (current) drug therapy ICD-9: V58.69 ICD-10: Z79.899 Active 03/08/2012 Unknown Acute anal fissure ICD- 9: 565.0 ICD-10: K60.0 Active 01/04/2016 Unknown Allergic rhinitis due to pollen ICD-9: 477.0 ICD-10: J30.1 Active 12/20/2015 Unknown Impacted cerumen, right ear ICD-9: 389.8 ICD-10: H61.21 Active 10/18/2015 Unknown Other allergic rhinitis ICD-9: 477.8 ICD-10: J30.89 Active 10/12/2015 Unknown Age-related osteoporosis without current pathological fracture ICD-9: 733.00 ICD-10: M81.0 Active 07/11/2014 Unknown Urge incontinence ICD-9: 788.31 ICD-10: N39.41 Active 12/25/2013 Unknown Unspecified hemorrhoids ICD-9: 455.6 ICD-10: K64.9 Active 09/14/2015 Unknown Hypothyroidism, unspecified ICD-9: 244.9 ICD-10: E03.9 Active 08/31/2015 Unknown Malignant neoplasm of left renal pelvis [...] Problems Condition Codes Effective Dates Condition Status Encounter for general adult medical examination with abnormal findings ICD-9: V70.0 ICD-10: Z00.01 01/23/2017 Active Chronic atrial fibrillation ICD-9: 427.31 ICD-10: I48.2 12/25/2013 Active Dysphonia ICD-9: 784.42 ICD-10: R49.0 01/19/2017 Active Essential (primary) hypertension ICD-9: 401.1 ICD-10: I10 01/19/2017 Active Acute upper respiratory infection, unspecified ICD-9: 465.9 ICD-10: J06.9 12/20/2015 Active Cough ICD-9: 786.2 ICD-10: R05 11/23/2016 Active Acute laryngopharyngitis ICD-9: 465.0 ICD-10: J06.0 11/21/2016 Active Laceration without foreign body of right forearm, subsequent encounter ICD-9: V58.89 ICD-10: S51.811D 11/08/2016 Active Laceration without foreign body of right forearm, initial encounter ICD-9: 881.00 ICD-10: S51.811A 10/27/2016 Active Atrophy of thyroid (acquired) ICD-9: 244.8 ICD-10: E03.4 11/02/2016 Active Essential (primary) hypertension ICD-9: 401.9 ICD-10: I10 12/25/2013 Active Abdominal distension (gaseous) ICD-9: 787.3 ICD-10: R14.0 03/22/2015 Active Localized edema ICD-9: 782.3 ICD-10: R60.0 06/09/2016 Active Irritable bowel syndrome without diarrhea ICD-9: 564.1 ICD-10: K58.9 01/14/2014 Active Pruritus ani ICD-9: 698.0 ICD-10: L29.0 05/24/2016 Active Encounter for screening mammogram for malignant neoplasm of breast ICD-9: V76.12 ICD-10: Z12.31 05/12/2014 Active Encounter for immunization ICD-9: V04.81 ICD-10: Z23 04/18/2012 Active First degree hemorrhoids ICD-9: 455.6 ICD-10: K64.0 03/23/2016 Active Epidermal cyst ICD-9: 706.2 ICD-10: L72.0 02/01/2016 Active 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 ICD-9: V58.69 ICD-10: Z79.899 03/08/2012 Active Acute anal fissure ICD- 9: 565.0 ICD-10: K60.0 01/04/2016 Active Allergic rhinitis due to pollen ICD-9: 477.0 ICD-10: J30.1 12/20/2015 Active Impacted cerumen, right ear ICD-9: 389.8 ICD-10: H61.21 10/18/2015 Active Other allergic rhinitis ICD-9: 477.8 ICD-10: J30.89 10/12/2015 Active Age-related osteoporosis without current pathological fracture ICD-9: 733.00 ICD-10: M81.0 07/11/2014 Active Urge incontinence ICD-9: 788.31 ICD-10: N39.41 12/25/2013 Active Unspecified hemorrhoids ICD-9: 455.6 ICD-10: K64.9 09/14/2015 Active Hypothyroidism, unspecified ICD-9: 244.9 ICD-10: E03.9 08/31/2015 Active Malignant neoplasm of left renal pelvis [...] Start Date Stop Date Status Fill Instructions lisinopril 20 mg tablet RxNorm: 578065 1 TABLET(S) PO DAILY 01/02/2017 05/31/2017 Active Zithromax Z-Claudio 250 mg tablet RxNorm: 834478 1 Tablet(s) PO UD 11/29/2016 12/03/2016 Inactive ZPACK Keflex 500 mg capsule RxNorm: 577909 1 Capsule(s) PO TID 11/23/2016 12/02/2016 Inactive guaifenesin 400 mg tablet RxNorm: 738818 1 Tablet(s) PO Q6 as needed 11/23/2016 11/27/2016 Inactive omeprazole 40 mg capsule,delayed release RxNorm: 306812 1 Capsule(s) PO QPM 11/02/2016 04/30/2017 Active digoxin 125 mcg tablet RxNorm: 107228 1 TABLET(S) PO DAILY 10/27/2016 07/23/2017 Active cyclobenzaprine 5 mg tablet RxNorm: 762068 1/2 Tablet(s) PO Q8 PRN 10/25/2016 No Stop Date Active prn muscle spasms Augmentin 500 mg-125 mg tablet RxNorm: 648546 1 Tablet(s) PO BID 10/24/2016 11/02/2016 Inactive spironolactone 25 mg tablet RxNorm: 009460 1 Tablet(s) PO daily 07/27/2016 02/21/2017 Active Lasix 20 mg tablet RxNorm: 058394 Tablet(s) PRN one to two times a week if needed 07/27/2016 No Stop Date Active Patient requests 90 days supply Diflucan 150 mg tablet RxNorm: 095661 1 Tablet(s) PO daily 07/27/2016 08/02/2016 Inactive lisinopril 20 mg tablet RxNorm: 942666 1 Tablet(s) PO daily 07/12/2016 01/01/2017 Inactive Lasix 20 mg tablet RxNorm: 626416 1 TABLET(S) PO EVERY OTHER DAY EVERY OTHER DAY 06/10/2016 07/26/2016 Inactive Patient requests 90 days supply potassium chloride ER 10 mEq capsule,extended release RxNorm: 811929 1 CAPSULE(S) PO EVERY OTHER DAY 06/10/2016 07/26/2016 Inactive Patient requests 90 days supply potassium chloride ER 10 mEq capsule,extended release RxNorm: 310217 1 Capsule(s) PO every other day 06/09/2016 06/09/2016 Inactive Lasix 20 mg tablet RxNorm: 071765 1 Tablet(s) PO every other day every other day 06/09/2016 06/09/2016 Inactive levothyroxine 88 mcg tablet RxNorm: 184048 1 Tablet(s) PO daily 05/11/2016 11/06/2016 Inactive Premarin 0.625 mg/gram vaginal cream RxNorm: 833608 1/2 Gram(s) VAG TIW 03/24/2016 03/18/2017 Active metoprolol succinate ER 50 mg tablet,extended release 24 hr RxNorm: 095474 1 Tablet(s) PO daily 03/24/2016 03/18/2017 Active pantoprazole 40 mg tablet,delayed release RxNorm: 084105 1 Tablet(s) PO daily 02/08/2016 11/01/2016 Inactive betamethasone dipropionate 0.05 % topical ointment RxNorm: 822339 1 Application TOP TID use topically on the rectal tissue three times daily x 1 week then as needed 02/02/2016 No Stop Date Active pantoprazole 40 mg tablet,delayed release RxNorm: 101648 1 Tablet(s) PO daily 2016 02/07/2016 Inactive alprazolam 0.25 mg tablet RxNorm: 151261 1 Tablet(s) PO Q6 as needed 12/04/2015 No Stop Date Active Vesicare 10 mg tablet RxNorm: 289221 1 Tablet(s) PO every other day 11/03/2015 No Stop Date Active alprazolam 0.25 mg tablet RxNorm: 548047 1 Tablet(s) PO Q6 as needed 11/03/2015 12/03/2015 Inactive Premarin 0.625 mg/gram vaginal cream RxNorm: 504842 1/2 Gram(s) VAG TIW 11/03/2015 03/23/2016 Inactive levothyroxine 88 mcg tablet RxNorm: 332525 1 Tablet(s) PO daily 11/03/2015 05/10/2016 Inactive Diflucan 150 mg tablet RxNorm: 203194 1 Tablet(s) PO daily 10/19/2015 10/25/2015 Inactive cetirizine 10 mg chewable tablet RxNorm: 0528440 1 Tablet(s) PO daily 10/13/2015 11/11/2015 Inactive cetirizine 10 mg capsule RxNorm: 8945729 1 Capsule(s) PO daily 10/13/2015 11/11/2015 Inactive Vesicare 10 mg tablet RxNorm: 866071 1/2 TABLET(S) PO BID 09/21/2015 11/02/2015 Inactive betamethasone dipropionate 0.05 % topical ointment RxNorm: 415513 1 Application TOP TID use topically on the rectal tissue three times daily x 1 week then as needed 09/15/2015 02/01/2016 Inactive lisinopril 20 mg tablet RxNorm: 536243 1 Tablet(s) PO daily 09/01/2015 07/11/2016 Inactive digoxin 125 mcg tablet RxNorm: 593605 1 Tablet(s) PO daily 09/01/2015 08/25/2016 Inactive Augmentin 500 mg-125 mg tablet RxNorm: 578068 1 Tablet(s) PO TID 05/26/2015 06/04/2015 Inactive Pyridium 200 mg tablet RxNorm: 3875560 1 Tablet(s) PO TID 05/26/2015 05/27/2015 Inactive levothyroxine 88 mcg tablet RxNorm: 891750 1 Tablet(s) PO daily except 1/2 pill on monday and 05/07/2015 11/02/2015 Inactive digoxin 125 mcg tablet RxNorm: 839633 1 Tablet(s) PO daily 05/07/2015 08/31/2015 Inactive lisinopril 20 mg tablet RxNorm: 211012 1 TABLET(S) PO BID 04/13/2015 09/01/2015 Inactive Coumadin 1 mg tablet RxNorm: 225039 1 TABLET(S) PO DAILY 03/31/2015 08/31/2015 Inactive Coumadin 2 mg tablet RxNorm: 093666 4MG IN AM AND 1MG AT NIGHT TABLET(S) PO DAILY DIRECTED. 03/31/2015 08/31/2015 Inactive levothyroxine 88 mcg tablet RxNorm: 560204 1 Tablet(s) PO daily 03/23/2015 05/06/2015 Inactive alprazolam 0.25 mg tablet RxNorm: 510922 Tablet(s) PO 03/23/2015 04/06/2015 Inactive levothyroxine 88 mcg tablet RxNorm: 320616 1 Tablet(s) PO daily 01/28/2015 03/22/2015 Inactive levothyroxine 88 mcg tablet RxNorm: 931356 1 Tablet(s) PO daily 01/28/2015 01/27/2015 Inactive diltiazem ER 120 mg capsule,extended release RxNorm: 737144 1 Capsule(s) PO BID patient would like 4 months at a time 01/06/2015 09/28/2015 Inactive digoxin 125 mcg tablet RxNorm: 002059 Tablet(s) 1 TABLET(S) PO DAILY 12/24/2014 12/23/2014 Inactive pt will be paying [employer]omares (On $4 list)Patient requests 90 days supply digoxin 125 mcg tablet RxNorm: 229162 Tablet(s) 1 TABLET(S) PO DAILY M W F Sat and 2 tabs on T TH 12/24/2014 05/06/2015 Inactive pt will be paying palomares (On $4 list)Patient requests 90 days supply dicyclomine 20 mg tablet RxNorm: 783779 1 Tablet(s) PO daily 11/17/2014 08/31/2015 Inactive one ac dinner and up to tid prn levothyroxine 88 mcg tablet RxNorm: 172724 1 Tablet(s) PO daily 11/03/2014 01/27/2015 Inactive Premarin 0.625 mg/gram vaginal cream RxNorm: 958419 1 APPLICATION VAG 1 APPLICATOR PER VAGINA 3 TIMES PER WEEK 11/03/2014 07/30/2015 Inactive digoxin 125 mcg tablet RxNorm: 931235 1 TABLET(S) PO DAILY 09/29/2014 12/23/2014 Inactive pt will be paying palomares (On $4 list)Patient requests 90 days supply digoxin 125 mcg tablet RxNorm: 727768 1 TABLET(S) PO DAILY 07/11/2014 04/06/2015 Inactive Vesicare 10 mg tablet RxNorm: 195335 1/2 Tablet(s) PO BID 05/20/2014 05/14/2015 Inactive Levaquin 500 mg tablet RxNorm: 294141 1 Tablet(s) PO daily 05/06/2014 05/08/2014 Inactive take probiotic BID while on ABT Levaquin 500 mg tablet RxNorm: 489185 1 Tablet(s) PO daily 05/02/2014 05/05/2014 Inactive take probiotic BID while on ABT diltiazem ER 120 mg capsule,extended release RxNorm: 981127 1 Capsule(s) PO BID patient would like 4 months at a time 04/29/2014 2015 Inactive Vesicare 10 mg tablet RxNorm: 249443 1/2 Tablet(s) PO BID 04/29/2014 05/19/2014 Inactive lisinopril 20 mg tablet RxNorm: 601368 1 Tablet(s) PO BID 03/20/2014 03/14/2015 Inactive diltiazem 90 mg tablet RxNorm: 916412 1/2 TABLET(S) PO QPM 03/04/2014 04/28/2014 Inactive also 180 q am diltiazem ER 120 mg capsule,extended release RxNorm: 473945 1 Capsule(s) PO daily patient would like 4 months at a time 01/29/2014 04/28/2014 Inactive Vesicare 10 mg tablet RxNorm: 834948 1 Tablet(s) PO QHS 01/14/2014 04/28/2014 Inactive Coumadin 2 mg tablet RxNorm: 607255 4mg in AM and 1mg at night Tablet(s) PO daily as directed. 12/25/2013 03/30/2015 Inactive Metanx 3 mg-35 mg-2 mg tablet RxNorm: 1 Tablet(s) PO daily 12/25/2013 11/02/2015 Inactive digoxin 125 mcg tablet RxNorm: 161247 1 Tablet(s) PO daily 12/25/2013 09/28/2014 Inactive pt will be paying palomares (On $4 list) Coumadin 2 mg tablet RxNorm: 189738 7.5 wed 5mg other Tablet(s) PO as directed. 12/03/2013 12/24/2013 Inactive omeprazole 20 mg tablet,delayed release RxNorm: 318062 1 Tablet(s) PO BID 11/27/2013 04/28/2014 Inactive Coumadin 2 mg tablet RxNorm: 687271 5 mg daily Tablet(s) PO as directed. 11/26/2013 12/02/2013 Inactive 5 mg daily Xanax 0.25 mg tablet RxNorm: 561400 1 Tablet(s) PO Q6 PRN 11/11/2013 12/25/2013 Inactive alprazolam 0.25 mg tablet RxNorm: 479822 tablet oral 11/11/2013 03/22/2015 Inactive sucralfate 1 gram tablet RxNorm: 864623 1 Tablet(s) PO AC & HS 11/04/2013 11/03/2013 Inactive sucralfate 1 gram tablet RxNorm: 096018 1 Tablet(s) PO AC & HS 11/04/2013 01/02/2014 Inactive Synthroid 100 mcg tablet RxNorm: 051482 1 Tablet(s) PO daily 10/31/2013 10/25/2014 Inactive Synthroid 100 mcg tablet RxNorm: 075634 1 Tablet(s) PO daily 09/30/2013 10/29/2013 Inactive Vesicare 10 mg tablet RxNorm: 766089 1 Tablet(s) PO QHS 09/30/2013 01/13/2014 Inactive Lotemax 0.5 % eye ointment RxNorm: 7230794 ointment opht 09/06/2013 12/10/2013 Inactive levothyroxine 100 mcg tablet RxNorm: 793382 tablet oral 09/05/2013 11/02/2014 Inactive Synthroid 100 mcg tablet RxNorm: 313898 1 Tablet(s) PO daily 09/05/2013 09/29/2013 Inactive Prolia 60 mg/mL Sub-Q Syringe RxNorm: 524616 1 Milliliter(s) SQ 06/25/2013 11/02/2015 Inactive dicyclomine 20 mg tablet RxNorm: 372716 1 Tablet(s) PO daily 06/24/2013 06/18/2014 Inactive one ac dinner and up to tid prn omeprazole 20 mg tablet,delayed release RxNorm: 613181 1 Tablet(s) PO BID 06/24/2013 11/26/2013 Inactive Cipro 500 mg tablet RxNorm: 029160 1 Tablet(s) PO BID 06/20/2013 06/26/2013 Inactive diltiazem ER 120 mg capsule,extended release RxNorm: 785842 1 Capsule(s) PO daily patient would like 4 months at a time 06/03/2013 01/28/2014 Inactive Coumadin 2 mg tablet RxNorm: 399638 as directed Tablet(s) PO as directed. 05/29/2013 11/25/2013 Inactive 5 mg daily Synthroid 88 mcg tablet RxNorm: 925103 1 Tablet(s) PO daily 04/24/2013 04/23/2013 Inactive Synthroid 88 mcg tablet RxNorm: 225212 1 Tablet(s) PO daily 04/24/2013 07/28/2013 Inactive Premarin 0.625 mg/gram vaginal cream RxNorm: 151749 1 Application VAG 1 applicator per vagina 3 times per week 04/23/2013 04/17/2014 Inactive Influenza Virus Vaccine 0.5 mL RxNorm: IM 04/23/2013 04/23/2013 Inactive digoxin 125 mcg tablet RxNorm: 813868 1 Tablet(s) PO daily 02/20/2013 04/20/2013 Inactive pt will be paying [employer]oma[employer] (On $4 list) Digox 125 mcg tablet RxNorm: 3268071 tablet oral 02/13/2013 03/20/2014 Inactive digoxin 125 mcg tablet RxNorm: 480859 1 Tablet(s) PO daily 02/13/2013 02/19/2013 Inactive diltiazem 90 mg tablet RxNorm: 135374 1/2 Tablet(s) PO QPM 02/13/2013 02/07/2014 Inactive also 180 q am Levoxyl 75 mcg tablet RxNorm: 659440 1 Tablet(s) PO 01/16/2013 04/23/2013 Inactive Coumadin 2 mg tablet RxNorm: 590328 6mg daily except 3mg on wed and fri Tablet(s) PO 01/15/2013 05/28/2013 Inactive 5 mg daily Coumadin 2 mg tablet RxNorm: 371978 6mg daily Tablet(s) PO 12/21/2012 01/14/2013 Inactive 5 mg daily silver sulfadiazine 1 % Topical Cream RxNorm: 860383 TOP apply to affected area with each dressing change 12/19/2012 12/25/2013 Inactive cephalexin 500 mg tablet RxNorm: 319836 1 Tablet(s) PO TID 12/11/2012 12/17/2012 Inactive digoxin 125 mcg tablet RxNorm: 6242444 1 Tablet(s) PO daily 10/30/2012 02/12/2013 Inactive digoxin 125 mcg tablet RxNorm: 0329770 2 tab tue thurs one other days Tablet(s) PO daily 10/23/2012 10/29/2012 Inactive lisinopril 10 mg tablet RxNorm: 288549 1 Tablet(s) PO daily 10/17/2012 08/14/2013 Inactive Cipro 500 mg tablet RxNorm: 018522 1 Tablet(s) PO BID 09/13/2012 09/19/2012 Inactive Coumadin 1 mg tablet RxNorm: 768682 1 Tablet(s) PO daily 09/03/2012 09/02/2012 Inactive Coumadin 1 mg tablet RxNorm: 644145 1 Tablet(s) PO daily 09/03/2012 12/21/2012 Inactive Coumadin 2 mg tablet RxNorm: 118331 Tablet(s) PO 07/25/2012 12/20/2012 Inactive 5 mg daily digoxin 125 mcg tablet RxNorm: 5957403 1 Tablet(s) PO daily 06/28/2012 10/22/2012 Inactive Coumadin 2 mg tablet RxNorm: 124415 Tablet(s) PO 06/27/2012 07/24/2012 Inactive 5mg daily except 4mg on monday Coumadin 2 mg tablet RxNorm: 769889 Tablet(s) PO 06/19/2012 06/26/2012 Inactive 5mg tue wed thur sat sun4mg mon frid(has 2mg and 1 mg tab) digoxin 125 mcg tablet RxNorm: 7330359 1 Tablet(s) PO daily 05/29/2012 06/27/2012 Inactive Coumadin 2 mg tablet RxNorm: 377272 Tablet(s) PO 05/15/2012 06/18/2012 Inactive 5mg tue thur sat sun4mg mon mon frid(has 2mg and 1 mg tab) Coumadin 2 mg tablet RxNorm: 502117 Tablet(s) PO 04/25/2012 05/14/2012 Inactive 5mg tue thru sat4mg mon sun(has 2mg and 1 mg tab) Metanx 3 mg-35 mg-2 mg tablet RxNorm: 1 Tablet(s) PO BID 04/18/2012 12/24/2013 Inactive dicyclomine 20 mg tablet RxNorm: 050142 1 Tablet(s) PO 04/18/2012 06/23/2013 Inactive one ac dinner and up to tid prn digoxin 125 mcg tablet RxNorm: 2869948 Tablet(s) PO daily except .25 on Tuesdays and 04/09/2012 05/28/2012 Inactive omeprazole 20 mg tablet,delayed release RxNorm: 598204 1 Tablet(s) PO BID 04/09/2012 04/03/2013 Inactive digoxin 125 mcg tablet RxNorm: 8134071 1 Tablet(s) PO UD daily except none on Tuesdays and 03/13/2012 04/08/2012 Inactive Premarin 0.625 mg/gram Vaginal Cream RxNorm: 471954 1 Application VAG 1 applicator per vagina 3 times per week 02/20/2012 02/13/2013 Inactive omeprazole 20 mg tablet,delayed release RxNorm: 970749 1 Tablet(s) PO BID 02/13/2012 04/08/2012 Inactive Vesicare 10 mg tablet RxNorm: 744011 1 Tablet(s) PO QHS 02/13/2012 02/06/2013 Inactive Diflucan 150 mg tablet RxNorm: 078280 1 Tablet(s) PO daily 02/13/2012 02/19/2012 Inactive omeprazole 20 mg tablet,delayed release RxNorm: 724077 1 Tablet(s) PO BID 01/06/2012 02/12/2012 Inactive Calcium 600 + D(3) 600 mg (1,500)-200 unit Tab RxNorm: 910555 2 Tablet(s) PO BID 01/06/2012 08/31/2015 Inactive diltiazem 90 mg tablet RxNorm: 647695 1/2 Tablet(s) PO QPM 12/26/2011 02/12/2013 Inactive also 180 q am diltiazem ER 180 mg Cap RxNorm: 716512 1 Capsule(s) PO QAM 12/26/2011 04/08/2012 Inactive 45mg q hs Flagyl 500 mg Tab RxNorm: 740402 1 Tablet(s) PO BID 12/14/2011 12/20/2011 Inactive dicyclomine 10 mg Cap RxNorm: 981271 1 Capsule(s) PO AC & HS 12/01/2011 12/25/2011 Inactive Levaquin 500 mg Tab RxNorm: 258980 1 Tablet(s) PO daily 11/23/2011 11/29/2011 Inactive Rocephin 500 mg Solution for Injection RxNorm: 188201 Inj 11/23/2011 11/23/2011 Inactive acyclovir 400 mg Tab RxNorm: 077015 1 Tablet(s) PO QID 11/10/2011 11/19/2011 Inactive acyclovir 400 mg Tab RxNorm: 824358 1 Tablet(s) PO QID 11/10/2011 11/09/2011 Inactive lisinopril 20 mg Tab RxNorm: 820727 1 Tablet(s) PO daily 10/03/2011 11/27/2011 Inactive lisinopril 20 mg Tab RxNorm: 745830 1 Tablet(s) PO daily 08/08/2011 10/02/2011 Inactive Reclast 5 mg/100 mL IV RxNorm: 627103 Milliliter(s) IV Yearly 06/08/2011 01/16/[address] Hansen manages Rocephin 500 mg Solution for Injection RxNorm: 445258 1 Milliliter(s) Inj 03/04/2011 08/08/2011 Inactive Ceftin 500 mg Tab RxNorm: 403108 1 Tablet(s) PO BID 03/04/2011 08/08/2011 Inactive Vitamin D3 1,000 unit tablet RxNorm: 111174 2 Tablet(s) PO daily No Start Date Active Carafate 100 mg/mL oral suspension RxNorm: 281842 2 Teaspoon(s) PO as needed with reflux symptoms No Start Date Active Stool Softener 100 mg tablet RxNorm: 1399209 2 Tablet(s) PO QHS No Start Date Active Beano tablet RxNorm: 2-3 Tablet(s) PO as needed No Start Date Active Probiotic Pearls 15 mg (1 billion cell) capsule,delayed release RxNorm: 1 Capsule(s) PO daily No Start Date Active Miralax 17 gram oral powder packet RxNorm: 235348 1/2 packet PO QHS No Start Date Active Eliquis 2.5 mg tablet RxNorm: 3796750 1 Tablet(s) PO BID No Start Date Active multivitamin Tab RxNorm: 1 Tablet(s) PO daily No Start Date Active Tylenol Extra Strength 500 mg tablet RxNorm: 951628 2 Tablet(s) PO as needed No Start Date Active Combigan 0.2 %-0.5 % eye drops RxNorm: 732149 1 Drop(s) OPH BID No Start Date Active 1 drop twice daily left eye Lexapro 5 mg tablet RxNorm: 635306 1 Tablet(s) PO daily No Start Date Active Tatiana Allergy 180 mg tablet RxNorm: 145267 1 Tablet(s) PO daily No Start Date Active Symbicort 160 mcg-4.5 mcg/actuation HFA aerosol inhaler RxNorm: 6143300 2 Puff(s) INH BID No Start Date Active Lotemax 0.5 % eye drops,suspension RxNorm: 159103 1 Drop(s) OPH right eye BID No Start Date Active Levoxyl 50 mcg tablet RxNorm: 063712 1 Tablet(s) PO daily No Start Date 01/15/2013 Inactive lisinopril-hydrochlorothiazide 20 mg-25 mg Tab RxNorm: 374499 1 Tablet(s) PO daily No Start Date 08/07/2011 Inactive Metanx 3 mg-35 mg-2 mg tablet RxNorm: 1 Tablet(s) PO daily No Start Date 04/17/2012 Inactive diltiazem CD 120 mg capsule,extended release 24 hr RxNorm: 573372 1 Capsule(s) PO daily No Start Date 09/28/2015 Inactive lisinopril 20 mg tablet RxNorm: 997508 Tablet(s) PO No Start Date Active Lumigan 0.01 % Eye Drops RxNorm: 8536493 1 Drop(s) OPH daily Left eye No Start Date 12/10/2013 Inactive prednisolone acetate 1 % Eye Drops, Susp RxNorm: 7496671 1 Drop(s) OPH BID 1 drop right eye am and hs No Start Date 11/02/2015 Inactive Eliquis 5 mg tablet RxNorm: 3134104 1 Tablet(s) PO BID No Start Date 06/08/2016 Inactive potassium gluconate (bulk) Misc RxNorm: Miscellaneous No Start Date 12/25/2011 Inactive Calcium 600 + D(3) 600 mg (1,500)-200 unit Tab RxNorm: 949681 3 Tablet(s) PO daily No Start Date 2012 Inactive Zyrtec 10 mg tablet RxNorm: 5902514 1 Tablet(s) PO daily No Start Date 08/02/2016 Inactive Synthroid 100 mcg tablet RxNorm: 561378 1 Tablet(s) PO daily No Start Date 09/04/2013 Inactive metoprolol succinate ER 50 mg tablet,extended release 24 hr RxNorm: 427372 1 Tablet(s) PO daily No Start Date 03/23/2016 Inactive Metanx 3 mg-35 mg-2 mg tablet RxNorm: 1 Tablet(s) PO daily 2pm No Start Date 11/02/2015 Inactive Lexapro 5 mg tablet RxNorm: 150413 1 Tablet(s) PO daily No Start Date 08/18/2015 Inactive Iron (dried) oral RxNorm: 94981 oral No Start Date 11/02/2015 Inactive timolol 0.5 % Eye Drops RxNorm: 187887 1 Drop(s) OPH daily left eye No Start Date 12/18/2013 Inactive multivitamin Cap RxNorm: 1 Capsule(s) PO daily No Start Date 12/25/2011 Inactive dicyclomine 10 mg Cap RxNorm: 424368 2 Capsule(s) PO daily No Start Date 11/30/2011 Inactive silver sulfadiazine 1 % Topical Cream RxNorm: 105552 TOP apply to affected area with each dressing change No Start Date 12/18/2012 Inactive magnesium oxide 400 mg Tab RxNorm: 982265 1 Tablet(s) PO daily No Start Date 11/02/2015 Inactive Pradaxa 75 mg Cap RxNorm: 3441106 1 Capsule(s) PO BID No Start Date 04/09/2012 Inactive magnesium oxide 400 mg Tab RxNorm: 548379 2 Tablet(s) PO daily magnesium plus zinc No Start Date 12/25/2011 Inactive biotin 1000 mg RxNorm: 1 PO daily No Start Date 12/25/2011 Inactive Synthroid 50 mcg Tab RxNorm: 110282 Tablet(s) PO No Start Date 12/25/2011 Inactive diltiazem ER 180 mg Cap RxNorm: 228036 1 Capsule(s) PO daily No Start Date 12/25/2011 Inactive 1 D 3 1000 iu Oral RxNorm: Oral No Start Date 12/25/2011 Inactive Coumadin 2 mg tablet RxNorm: 207231 Tablet(s) PO No Start Date 04/24/2012 Inactive 5mg tue [id number] mon fri sat sun(has 2mg and 1 mg tab) dicyclomine 20 mg tablet RxNorm: 707842 Tablet(s) PO No Start Date 04/17/2012 Inactive one ac dinner and up to tid prn lactobacillus acidophilus tablet RxNorm: 1 Tablet(s) PO daily No Start Date 11/03/2015 Inactive Levoxyl 75 mcg Tab RxNorm: 111369 1 Tablet(s) PO daily No Start Date 10/02/2011 Inactive digoxin 125 mcg tablet RxNorm: 4370412 1 Tablet(s) PO daily No Start Date 03/12/2012 Inactive pantoprazole 40 mg tablet,delayed release RxNorm: 726963 1 Tablet(s) PO BID No Start Date 01/04/2016 Inactive cyclobenzaprine 5 mg tablet RxNorm: 126217 1/2 Tablet(s) PO Q8 PRN No Start Date 10/24/2016 Inactive diltiazem 90 mg Tab RxNorm: 945021 1/2 Tablet(s) PO QPM No Start Date 12/25/2011 Inactive Mirapex 1 mg Tab RxNorm: 754424 1 Tablet(s) PO QHS No Start Date 12/25/2011 Inactive Xanax 0.25 mg tablet RxNorm: 677992 1 Tablet(s) PO Q6 PRN No Start Date 11/10/2013 Inactive Premarin 0.625 mg/gram Vaginal Cream RxNorm: 607785 1 Application VAG 1 applicator per vagina 3 times per week No Start Date 02/19/2012 Inactive Synthroid 75 mcg Tab RxNorm: 673248 1 Tablet(s) PO daily No Start Date 04/17/2012 Inactive lisinopril 40 mg Tab RxNorm: 359379 1 Tablet(s) PO daily No Start Date 12/25/2011 Inactive Glucosamine Chondroitin Complex Advanced [id number]-400lc-1.65mg Tab RxNorm: 2 Tablet(s) PO daily No Start Date 08/08/2011 Inactive famotidine 20 mg tablet RxNorm: 377791 1 Tablet(s) PO QAM No Start Date 11/02/2015 Inactive cranberry extract 250 mg Tab RxNorm: 960917 2 Tablet(s) PO daily No Start Date 08/08/2011 Inactive Vitamin D3 1,000 unit capsule RxNorm: 626690 1 Capsule(s) PO daily No Start Date 08/31/2015 Inactive aspirin 81 mg Tab, Delayed Release RxNorm: 330685 1 Tablet(s) PO daily No Start Date 08/31/2015 Inactive diltiazem ER 120 mg capsule,extended release RxNorm: 692395 1 Capsule(s) PO daily patient would like 4 months at a time No Start Date 06/02/2013 Inactive omeprazole 20 mg Tab, Delayed Release RxNorm: 028520 2 Tablet(s) PO QHS No Start Date 2012 Inactive lisinopril 10 mg tablet RxNorm: 558095 1/2 Tablet(s) PO daily No Start Date 10/16/2012 Inactive Pred Forte 1 % Eye Drops RxNorm: 257643 1 Drop(s) OPH daily right eye No Start Date 12/25/2013 Inactive calcium carbonate 400 mg Chewable Tab RxNorm: 884553 1 Tablet(s) PO daily No Start Date 08/08/2011 Inactive Vesicare 10 mg tablet RxNorm: 989965 1 Tablet(s) PO QHS No Start Date 02/12/2012 Inactive potassium 99 mg tablet RxNorm: 1 Tablet(s) PO QPM No Start Date 12/25/2013 Inactive timolol 0.25 % Eye Drops RxNorm: 108690 1 Drop(s) OPH daily Left eye No Start Date 04/17/2012 Inactive diltiazem ER 90 mg capsule,extended release 12 hr RxNorm: 391837 1/2 Capsule(s) PO QPM No Start Date 04/28/2014 Inactive cyclobenzaprine 5 mg Tab RxNorm: 145993 1/2-1 Tablet(s) PO Q8 PRN No Start Date 12/25/2011 Inactive 1/2 - 1 tab q 8hrs prn muscle spasms Medication Administered Medication Codes Instructions Start Date Status Influenza Virus Vaccine 0.5 mL RxNorm: 04/23/2013 No longer Active Rocephin 500 mg Solution for Injection RxNorm: 468800 11/23/2011 No longer Active Immunizations Vaccine Codes Date Status Influenza CVX: 141 03/24/2016 completed PPD Unknown 10/19/2015 completed Pneumococcal (Adult) CVX: 133 05/13/2015 completed Pneumococcal (Adult) CVX: 133 05/13/2015 completed Pneumococcal (Adult) CVX: 33 07/11/2014 completed Influenza CVX: 141 03/20/2014 completed Influenza CVX: 141 04/23/2013 completed Influenza CVX: 141 04/18/2012 completed Assessments Condition Codes Effective Dates Encounter for general adult medical examination with abnormal findings ICD-10: Z00.01 ICD-9: V70.0 01/23/2017 Dysphonia ICD-10: R49.0 ICD-9: 784.42 01/19/2017 Chronic atrial fibrillation ICD-10: I48.2 ICD-9: 427.31 01/19/2017 Essential (primary) hypertension ICD-10: I10 ICD-9: 401.1 01/19/2017 Cough ICD-10: R05 ICD-9: 786.2 11/29/2016 Acute upper respiratory infection, unspecified ICD-10: J06.9 ICD-9: 465.9 11/29/2016 Acute laryngopharyngitis ICD-10: J06.0 ICD-9: 465.0 11/23/2016 Laceration without foreign body of right forearm, subsequent encounter ICD-10: S51.811D ICD-9: V58.89 11/17/2016 Atrophy of thyroid (acquired) ICD-10: E03.4 ICD-9: 244.8 11/02/2016 Laceration without foreign body of right forearm, initial encounter ICD-10: S51.811A ICD-9: 881.00 10/27/2016 Essential (primary) hypertension ICD-10: I10 ICD-9: 401.9 08/31/2016 Localized edema ICD-10: R60.0 ICD-9: 782.3 07/27/2016 Abdominal distension (gaseous) ICD-10: R14.0 ICD-9: 787.3 07/27/2016 Pruritus ani ICD-10: L29.0 ICD-9: 698.0 05/25/2016 Irritable bowel syndrome without diarrhea ICD-10: K58.9 ICD-9: 564.1 05/25/2016 Encounter for screening mammogram for malignant neoplasm of breast ICD-10: Z12.31 ICD-9: V76.12 05/17/2016 Encounter for immunization ICD-10: Z23 ICD-9: V04.81 03/24/2016 First degree hemorrhoids ICD-10: K64.0 ICD-9: 455.6 03/24/2016 Other senior care (current) drug therapy ICD-10: Z79.899 ICD-9: V58.69 02/02/2016 Epidermal cyst ICD-10: L72.0 ICD-9: 706.2 02/02/2016 Acute anal fissure ICD-10: K60.0 ICD-9: 565.0 2016 Allergic rhinitis due to pollen ICD-10: J30.1 ICD-9: 477.0 12/21/2015 Impacted cerumen, right ear ICD-10: H61.21 ICD-9: 389.8 10/19/2015 Other allergic rhinitis ICD-10: J30.89 ICD-9: 477.8 10/13/2015 Urge incontinence ICD-10: N39.41 ICD-9: 788.31 09/29/2015 Age-related osteoporosis without current pathological fracture ICD-10: M81.0 ICD-9: 733.00 09/29/2015 Unspecified hemorrhoids ICD-10: K64.9 ICD-9: 455.6 [...] Visit Reason For Visit Effective Dates Notes Annual Medicare Wellness Exam 01/23/2017 fatigue 01/19/2017 [...] Code Result Date C RAP A SC 0534443 Strep A Negative 11/21/2016 Thyroid Antibodies 029048 THYROGLOBULIN ANTIBODY . 11/04/2016 Thyroid Antibodies 067212 THYROGLOBULIN ANTIBODY 919 IU/mL 11/04/2016 Thyroid Antibodies 720274 THYROID PEROXIDASE (TPO) AB . 11/04/2016 Thyroid Antibodies 835578 THYROID PEROXIDASE (TPO) AB 10 IU/mL 11/04/2016 Total T3 Ord42 TT3 0.64 ng/ml 11/03/2016 Free T4 Uep832 FREE T4 1.39 ng/dL 11/02/2016 Tsh Ord6 [...] Differential Ord2 RDW 13.8 % 05/26/2015 Pt Jcg5302 PT 25.0 seconds 05/26/2015 Pt Jel7317 INR 2.4 05/26/2015 Pt Azs9241 Low Intensity - 1.5-2.0 05/26/2015 Pt Qda1522 Mod intensity - 2.0-3.0 05/26/2015 Pt Lcx9563 Hi intensity - 3.0-4.0 05/26/2015 Uric Acid [...] Digoxin Ord9 DIGOXIN 0.6 NG/ML 05/06/2015 Pt Hhg1121 PT 23.3 seconds 05/06/2015 Pt Ppl8861 INR 2.1 05/06/2015 Pt Pab7124 Low Intensity - 1.5-2.0 05/06/2015 Pt Ggd2933 Mod intensity - 2.0-3.0 05/06/2015 Pt Kml2185 Hi intensity - 3.0-4.0 05/06/2015 Free T4 Aco590 FREE T4 1.65 ng/dL 05/06/2015 Comp Metabolic Fat537 NA 132 mEq/L 05/06/2015 Comp Metabolic Hem201 K 4.1 mEq/L 05/06/2015 Comp Metabolic Uwm611 CL 98 mEq/L 05/06/2015 Comp Metabolic Dfi087 CO2 27.0 mEq/L 05/06/2015 Comp Metabolic Tcf551 ANION GAP 11 05/06/2015 Comp Metabolic Zic617 GLUCOSE 71 mg/dL 05/06/2015 Comp Metabolic Ndh296 Creat 0.7 mg/dL 05/06/2015 Comp Metabolic Pwc223 eGFR 82 ml/min/1.73m2 05/06/2015 Comp Metabolic Dco874 BUN 16 mg/dL 05/06/2015 Comp Metabolic Rvx913 B/C Ratio 22.2 Ratio 05/06/2015 Comp Metabolic Odp789 CALCIUM 9.4 mg/dL 05/06/2015 Comp Metabolic Gsk446 ALK PHOS 60 U/L 05/06/2015 Comp Metabolic Weg519 AST(SGOT) 22 U/L 05/06/2015 Comp Metabolic Dnm208 ALT(SGPT) 24 U/L 05/06/2015 Comp Metabolic Hdk739 BILI T 0.8 mg/dL 05/06/2015 Comp Metabolic Dyw398 ALBUMIN 4.3 g/dL 05/06/2015 Comp Metabolic Eqb059 TPRO 7.6 g/dL 05/06/2015 Comp Metabolic Ljj004 GLOB 3.3 g/dL 05/06/2015 Comp Metabolic Pjh147 A/G Ratio 1.3 Ratio 05/06/2015 Comp Metabolic Zzx387 Osmo 264 mOsmo 05/06/2015 DIGOXIN 4910145 DIGOXIN 1.1 NG/ML 05/15/2013 PT/MC 8895443 PRO TIME 21.7 SEC 05/15/2013 PT/MC 1454753 INR MCMC 2.0 05/15/2013 CHEM 14 3891704 AST 24 U/L 04/23/2013 CHEM 14 9007866 ALT 31 IU/L 04/23/2013 CHEM 14 6436879 BUN 13 MG/DL 04/23/2013 CHEM 14 6081670 ALBUMIN 4.1 GM/DL 04/23/2013 CHEM 14 8341723 CHLORIDE 103 MMOL/L 04/23/2013 CHEM 14 8326332 BILI TOT 0.5 MG/DL 04/23/2013 CHEM 14 3964199 ALK PHOS 44 U/L 04/23/2013 CHEM 14 8988777 SODIUM 137 MMOL/L 04/23/2013 CHEM 14 0306076 CREATININE 0.61 MG/DL 04/23/2013 CHEM 14 3428030 CALCIUM 9.5 MG/DL 04/23/2013 CHEM 14 0383481 POTASSIUM 4.0 MMOL/L 04/23/2013 CHEM 14 2779779 PROT TOT 6.6 GM/DL 04/23/2013 CHEM 14 9092571 GLUCOSE 99 MG/DL 04/23/2013 CHEM 14 5757130 BICARB 27 MMOL/L 04/23/2013 CHEM 14 8391558 ANION GAP 7 MEQ/L 04/23/2013 GFR CALC 6401647 GFR AA >60 ML/MIN 04/23/2013 GFR CALC 4305258 GFR NON-AA >60 ML/MIN 04/23/2013 TSH 9077640 TSH 4.204 uIU/ML 04/23/2013 CBC 7654191 WBC 6.7 10e9/L 04/23/2013 CBC 2357660 RBC 4.19 10e12/L 04/23/2013 CBC 1036899 HGB 13.2 g/dL 04/23/2013 CBC 1791527 HCT DET 39.2 % 04/23/2013 CBC 7718052 MCV 93.6 fL 04/23/2013 CBC 7953438 MCH 31.5 pg 04/23/2013 CBC 4663329 MCHC 33.7 g/dL 04/23/2013 CBC 0418530 PLT 202 10e9/L 04/23/2013 CBC 2089240 MPV 11.4 fL 04/23/2013 CBC 9973241 YANIRA % 70.5 % 04/23/2013 CBC 6722233 LY % 19.6 % 04/23/2013 CBC 8330931 MON % 8.2 % 04/23/2013 CBC 0121130 EOS % 1.6 % 04/23/2013 CBC 9454727 BASO % 0.1 % 04/23/2013 CBC 9608863 RDW 13.7 % 04/23/2013 CBC 1300702 ABS YANIRA 4.72 10e9/L 04/23/2013 CBC 3159095 ABS LYMPH 1.31 10e9/L 04/23/2013 CBC 5985100 ABS MONO 0.55 10e9/L 04/23/2013 CBC 2580834 ABS EOS 0.11 10e9/L 04/23/2013 CBC 8801272 ABS BASO 0.01 10e9/L 04/23/2013 CBC 6095478 RDW-SD 45.7 fL 04/23/2013 PT/MC 7672558 PRO TIME 13.4 SEC 12/17/2012 PT/MC 4784039 INR MCMC 1.0 12/17/2012 PT/MC 6904050 PRO TIME 16.6 SEC 12/14/2012 PT/MC 1385514 INR MCMC 1.4 12/14/2012 PT/MC 3329621 PRO TIME 27.2 SEC 12/11/2012 PT/MC 6576082 INR MCMC 2.6 12/11/2012 DIGOXIN 0242245 DIGOXIN 2.1 NG/ML 03/08/2012 GFR CALC 5022307 GFR AA >60 ML/MIN 03/08/2012 GFR CALC 2694366 GFR NON-AA >60 ML/MIN 03/08/2012 CHEM 14 20280112 AST 16 U/L 03/08/2012 CHEM 14 20280112 ALT 14 IU/L 03/08/2012 CHEM 14 20280112 BUN 10 MG/DL 03/08/2012 CHEM 14 20280112 ALBUMIN 4.2 GM/DL 03/08/2012 CHEM 14 20280112 CHLORIDE 100 MMOL/L 03/08/2012 CHEM 14 20280112 BILI TOT 0.5 MG/DL 03/08/2012 CHEM 14 0684998 ALK PHOS 59 U/L 03/08/2012 CHEM 14 20280112 SODIUM 136 MMOL/L 03/08/2012 CHEM 14 5230133 CREATININE 0.65 MG/DL 03/08/2012 CHEM 14 7672372 CALCIUM 9.4 MG/DL 03/08/2012 CHEM 14 8101058 POTASSIUM 3.9 MMOL/L 03/08/2012 CHEM 14 8966731 PROT TOT 6.7 GM/DL 03/08/2012 CHEM 14 7366150 GLUCOSE 90 MG/DL 03/08/2012 CHEM 14 0135274 BICARB 30 MMOL/L 03/08/2012 CHEM 14 8686501 ANION GAP 6 MEQ/L 03/08/2012 CHEM 14 0822804 AST 16 U/L 11/23/2011 CHEM 14 3654667 ALT 14 IU/L 11/23/2011 CHEM 14 3521798 BUN 11 MG/DL 11/23/2011 CHEM 14 6932603 ALBUMIN 4.1 GM/DL 11/23/2011 CHEM 14 4403881 CHLORIDE 100 MMOL/L 11/23/2011 CHEM 14 3697832 BILI TOT 0.5 MG/DL 11/23/2011 CHEM 14 3539784 ALK PHOS 50 U/L 11/23/2011 CHEM 14 4913904 SODIUM 135 MMOL/L 11/23/2011 CHEM 14 3961580 CREATININE 0.57 MG/DL 11/23/2011 CHEM 14 6820849 CALCIUM 9.1 MG/DL 11/23/2011 CHEM 14 4690979 POTASSIUM 4.5 MMOL/L 11/23/2011 CHEM 14 1472516 PROT TOT 6.5 GM/DL 11/23/2011 CHEM 14 5518108 GLUCOSE 89 MG/DL 11/23/2011 CHEM 14 6410182 BICARB 28 MMOL/L 11/23/2011 CHEM 14 6763835 ANION GAP 7 MEQ/L 11/23/2011 GFR CALC 1256362 GFR AA >60 ML/MIN 11/23/2011 GFR CALC 3859645 GFR NON-AA >60 ML/MIN 11/23/2011 CBC 2211128 WBC 5.1 10e9/L 11/23/2011 CBC 2055143 RBC 4.06 10e12/L 11/23/2011 CBC 4057615 HGB 12.5 g/dL 11/23/2011 CBC 5591398 HCT DET 37.3 % 11/23/2011 CBC 7606298 MCV 91.9 fL 11/23/2011 CBC 6113104 MCH 30.8 pg 11/23/2011 CBC 8409667 MCHC 33.5 g/dL 11/23/2011 CBC 2053073 PLT 222 10e9/L 11/23/2011 CBC 0383446 MPV 10.8 fL 11/23/2011 CBC 7377955 YANIRA % 64.2 % 11/23/2011 CBC 9683188 LY % 22.3 % 11/23/2011 CBC 3830704 MON % 11.3 % 11/23/2011 CBC 2986550 EOS % 1.8 % 11/23/2011 CBC 1949724 BASO % 0.4 % 11/23/2011 CBC 4824014 RDW 13.6 % 11/23/2011 CBC 8981420 ABS YANIRA 3.27 10e9/L 11/23/2011 CBC 6163486 ABS LYMPH 1.14 10e9/L 11/23/2011 CBC 4551472 ABS MONO 0.58 10e9/L 11/23/2011 CBC 3959944 ABS EOS 0.09 10e9/L 11/23/2011 CBC 6525453 ABS BASO 0.02 10e9/L 11/23/2011 CBC 0779454 RDW-SD 44.5 fL 11/23/2011 UA 70860 Specific [place] 1.005 03/04/2011 UA 34593 PH 6 03/04/2011 UA 96146 GLUCOSE N 03/04/2011 UA 71572 Protein N 03/04/2011 UA 71738 Blood ++ 03/04/2011 UA 98844 Bilirubin N 03/04/2011 UA 30834 Ketones N 03/04/2011 UA 71904 Urobilinogen N 03/04/2011 UA 89842 Nitrite N 03/04/2011 UA 15981 Leukocytes N 03/04/2011 URINALYSIS NONAUTO W/O SCOPE 30607 Specific [place] 1.010 DateTime(Free Text in Aprima) URINALYSIS NONAUTO W/O SCOPE 76151 PH 6.5 DateTime(Free Text in Aprima) URINALYSIS NONAUTO W/O SCOPE 96619 GLUCOSE neg DateTime(Free Text in Aprima) URINALYSIS NONAUTO W/O SCOPE 09338 Protein neg DateTime(Free Text in Aprima) URINALYSIS NONAUTO W/O SCOPE 56464 Blood 3+ DateTime(Free Text in Aprima) URINALYSIS NONAUTO W/O SCOPE 34329 Bilirubin neg DateTime(Free Text in Aprima) URINALYSIS NONAUTO W/O SCOPE 43152 Ketones neg DateTime(Free Text in Aprima) URINALYSIS NONAUTO W/O SCOPE 67557 Urobilinogen neg DateTime(Free Text in Aprima) URINALYSIS NONAUTO W/O SCOPE 99659 Nitrite neg DateTime(Free Text in Aprima) URINALYSIS NONAUTO W/O SCOPE 16269 Leukocytes neg DateTime(Free Text in Aprima) URINALYSIS NONAUTO W/O SCOPE 35281 Specific [place] 1.010 DateTime(Free Text in Aprima) URINALYSIS NONAUTO W/O SCOPE 34117 PH 5 DateTime(Free Text in Aprima) URINALYSIS NONAUTO W/O SCOPE 25740 GLUCOSE neg DateTime(Free Text in Aprima) URINALYSIS NONAUTO W/O SCOPE 49715 Protein neg DateTime(Free Text in Aprima) URINALYSIS NONAUTO W/O SCOPE 54860 Blood 3+ DateTime(Free Text in Aprima) URINALYSIS NONAUTO W/O SCOPE 81913 Bilirubin neg DateTime(Free Text in Aprima) URINALYSIS NONAUTO W/O SCOPE 19833 Ketones neg DateTime(Free Text in Aprima) URINALYSIS NONAUTO W/O SCOPE 25115 Urobilinogen neg DateTime(Free Text in Aprima) URINALYSIS NONAUTO W/O SCOPE 00779 Nitrite neg DateTime(Free Text in Aprima) URINALYSIS NONAUTO W/O SCOPE 48754 Leukocytes neg DateTime(Free Text in Aprima) URINALYSIS NONAUTO W/O SCOPE 82886 Specific [place] 1.005 DateTime(Free Text in Aprima) URINALYSIS NONAUTO W/O SCOPE 31323 PH 8.5 DateTime(Free Text in Aprima) URINALYSIS NONAUTO W/O SCOPE 86446 GLUCOSE neg DateTime(Free Text in Aprima) URINALYSIS NONAUTO W/O SCOPE 07793 Protein neg DateTime(Free Text in Aprima) URINALYSIS NONAUTO W/O SCOPE 44012 Blood 1+ DateTime(Free Text in Aprima) URINALYSIS NONAUTO W/O SCOPE 42928 Bilirubin neg DateTime(Free Text in Aprima) URINALYSIS NONAUTO W/O SCOPE 38273 Ketones neg DateTime(Free Text in Aprima) URINALYSIS NONAUTO W/O SCOPE 94885 Urobilinogen neg DateTime(Free Text in Aprima) URINALYSIS NONAUTO W/O SCOPE 97064 Nitrite neg DateTime(Free Text in Aprima) URINALYSIS NONAUTO W/O SCOPE 23365 Leukocytes neg DateTime(Free Text in Aprima) URINALYSIS NONAUTO W/O SCOPE 01624 Specific [place] 1.005 DateTime(Free Text in Aprima) URINALYSIS NONAUTO W/O SCOPE 54168 PH 7 DateTime(Free Text in Aprima) URINALYSIS NONAUTO W/O SCOPE 74739 GLUCOSE neg DateTime(Free Text in Aprima) URINALYSIS NONAUTO W/O SCOPE 22780 Protein neg DateTime(Free Text in Aprima) URINALYSIS NONAUTO W/O SCOPE 19458 Blood large DateTime(Free Text in Aprima) URINALYSIS NONAUTO W/O SCOPE 36639 Bilirubin neg DateTime(Free Text in Aprima) URINALYSIS NONAUTO W/O SCOPE 16977 Ketones neg DateTime(Free Text in Aprima) URINALYSIS NONAUTO W/O SCOPE 26411 Urobilinogen 0.2 DateTime(Free Text in Aprima) URINALYSIS NONAUTO W/O SCOPE 75437 Nitrite neg DateTime(Free Text in Aprima) URINALYSIS NONAUTO W/O SCOPE 71049 Leukocytes neg DateTime(Free Text in Aprima) URINALYSIS NONAUTO W/O SCOPE 87594 Specific [place] 1.005 DateTime(Free Text in Aprima) URINALYSIS NONAUTO W/O SCOPE 43599 PH 7.5 DateTime(Free Text in Aprima) URINALYSIS NONAUTO W/O SCOPE 27213 GLUCOSE DateTime(Free Text in Aprima) URINALYSIS NONAUTO W/O SCOPE 92625 Protein trace DateTime(Free Text in Aprima) URINALYSIS NONAUTO W/O SCOPE 32785 Blood 4+ DateTime(Free Text in Aprima) URINALYSIS NONAUTO W/O SCOPE 31350 Bilirubin DateTime(Free Text in Aprima) URINALYSIS NONAUTO W/O SCOPE 74719 Ketones DateTime(Free Text in Aprima) URINALYSIS NONAUTO W/O SCOPE 91750 Urobilinogen DateTime(Free Text in ) URINALYSIS NONAUTO W/O SCOPE 17940 Nitrite DateTime(Free Text in Apr) URINALYSIS NONAUTO W/O SCOPE 29902 Leukocytes trace DateTime(Free Text in ) Review of Systems System Result Effective Dates Constitutional No recent illness 01/23/2017 Constitutional No [...] happy 2016 None Full Exam - General 1995 Psychiatric mood and affect Overall: normal mood [...] Procedures Procedure Codes Date PPPS, SUBSEQ VISIT CPT-4: M0191Mwqdbvy 01/23/2017 URINALYSIS NONAUTO W/O SCOPE CPT-4: 61718Amanlmk 05/17/2016 ADMIN INFLUENZA VIRUS VAC CPT-4: D8124Bqqmozp 03/24/2016 FLU VACC PRSV FREE INC ANTIG CPT-4: 85138Eoxkpop 03/24/2016 ADMIN PNEUMOCOCCAL VACCINE SNOMED CT: 01423843 CPT-4: T5728Bltmzzs 05/13/2015 PNEUMOCOCCAL VACC [address]: 30927243 CPT-4: 71210Zmaywnj 05/13/2015 Pneumococcal Polysaccharide Vaccine, 23-Valent, Ad Assigned to/Mela Bledsoe CPT-4: 50583Usvrtbn 07/11/2014 ADMIN PNEUMOCOCCAL VACCINE SNOMED CT: 57955556 CPT-4: W2953Ysrffip 07/11/2014 URINALYSIS NONAUTO W/O SCOPE CPT-4: 34263Ohoqsvc 05/14/2014 URINALYSIS NONAUTO W/O SCOPE CPT-4: 96139Qpqtate 05/06/2014 URINALYSIS NONAUTO W/O SCOPE CPT-4: 25277Rqdsruh 04/29/2014 ADMIN INFLUENZA VIRUS VAC CPT-4: Y1426Xohmnpf 03/20/2014 FLU VAC NO PRSV 4 SCOTT 3 YRS+ Assigned to/Mela Bledsoe CPT-4: 87917Nqaaqpx 03/20/2014 URINALYSIS NONAUTO W/O SCOPE CPT-4: 57412Wptnrac 07/29/2013 URINALYSIS NONAUTO W/O SCOPE CPT-4: 61426Brxvpmz 07/01/2013 URINALYSIS NONAUTO W/O SCOPE CPT-4: 84469Clzgcsa 06/20/2013 ROUTINE VENIPUNCTURE CPT-4: 78386Ebhrbie 05/15/2013 ROUTINE VENIPUNCTURE CPT-4: 10835Rtqmoyo 04/23/2013 ADMIN INFLUENZA VIRUS VAC CPT-4: S4081Ypyfget 04/23/2013 FLULAVAL VACC, 3 YRS & >, IM CPT-4: C2498Kgexqtm 04/23/2013 ROUTINE VENIPUNCTURE CPT-4: 87885Rioypqw 12/17/2012 ROUTINE VENIPUNCTURE CPT-4: 41198Pfnzztr 12/14/2012 ROUTINE VENIPUNCTURE CPT-4: 48013Dbcjqxf 12/11/2012 PRESCRIP TRANSMIT VIA ERX SY CPT-4: C2987Aeinpqo 12/11/2012 PRESCRIP TRANSMIT VIA ERX SY CPT-4: I0081Uyvqasb 10/30/2012 URINALYSIS NONAUTO W/O SCOPE CPT-4: 18243Ypkiytc 09/13/2012 ADMIN INFLUENZA VIRUS VAC CPT-4: D0580Lzkjmui 04/18/2012 FLULAVAL VACC, 3 YRS & >, IM CPT-4: U5119Kudymru 04/18/2012 URINALYSIS NONAUTO W/O SCOPE CPT-4: 98981Opybtoq 03/13/2012 ROUTINE VENIPUNCTURE CPT-4: 55678Iooepue 03/08/2012 URINALYSIS NONAUTO W/O SCOPE CPT-4: 05102Ngyfgkv 02/13/2012 PRESCRIP TRANSMIT VIA ERX SY CPT-4: E5736Rqxserz 02/13/2012 ROCEPHIN, PER 250 MG CPT-4: L4463Rfoegfr 11/23/2011 ROUTINE VENIPUNCTURE CPT-4: 30148Zporwsb 11/23/2011 URINALYSIS NONAUTO W/O SCOPE CPT-4: 36199Umhjnca 11/23/2011 PRESCRIP TRANSMIT VIA ERX SY CPT-4: Y8665Bdmawob 11/23/2011 REMOVE IMPACTED EAR WAX UNI CPT-4: 81863Odbbxxv 10/17/2011 PRESCRIP TRANSMIT VIA ERX SY CPT-4: Q3349Lcijmug 10/03/2011 PRESCRIP TRANSMIT VIA ERX SY CPT-4: A1522Ewhqgco 08/08/2011 URINALYSIS NONAUTO W/O SCOPE CPT-4: 53023Ncynjfl 03/15/2011 URINALYSIS NONAUTO W/O SCOPE CPT-4: 76273Dwdenkg 03/04/2011 THER/PROPH/DIAG INJ SC/IM CPT-4: 89516Eanwewe 03/04/2011 ROCEPHIN, PER 250 MG CPT-4: F7600Plaazds 03/04/2011 Vital Signs Date Vital 01/23/2017 BMI: 21.5 Code: 47077-3 Height: 5' Weight: 110 lbs 01/19/2017 Blood Pressure 1: 112/60 Code: 8480-6 BMI: 21.5 Code: 77613-2 Heart Rate 1: 54 bpm Height: 5' SpO2: 97% Weight: 110 lbs 11/29/2016 Blood Pressure 1: 126/68 Code: 8480-6 Height: 5' Weight: 11/23/2016 Blood Pressure 1: 130/72 Code: 8480-6 BMI: 21.9 Code: 65730-1 Heart Rate 1: 48 bpm Height: 5' SpO2: 97% Temperature: 36.7 (C) / 98.0 (F) Weight: 112 lbs 11/21/2016 Blood Pressure 1: 134/76 Code: 8480-6 BMI: 21.9 Code: 52277-5 Heart Rate 1: 41 bpm Height: 5' SpO2: 94% Temperature: 36.9 (C) / 98.4 (F) Weight: 112 lbs 11/08/2016 Blood Pressure 1: 126/74 Code: 8480-6 Heart Rate 1: 82 bpm Height: 5' SpO2: 94% Weight: 11/02/2016 Blood Pressure 1: 112/66 Code: 8480-6 Heart Rate 1: 72 bpm Height: 5' SpO2: 95% Weight: 10/27/2016 Blood Pressure 1: 130/64 Code: 8480-6 BMI: 21.7 Code: 65694-6 Heart Rate 1: 81 bpm Height: 5' SpO2: 96% Weight: 111 lbs 08/31/2016 Blood Pressure 1: 132/72 Code: 8480-6 BMI: 22.5 Code: 81143-5 Heart Rate 1: 66 bpm Height: 5' Weight: 115 lbs 07/27/2016 Blood Pressure 1: 166/74 Code: 8480-6 BMI: 23.2 Code: 65977-8 Heart Rate 1: 48 bpm Height: 5' SpO2: 90% Temperature: 36.8 (C) / 98.2 (F) Weight: 119 lbs 06/23/2016 Blood Pressure 1: 128/70 Code: 8480-6 BMI: 22.3 Code: 90283-1 Heart Rate 1: 75 bpm Height: 5' SpO2: 97% Weight: 114 lbs 06/09/2016 BMI: 22.7 Code: 88953-0 Heart Rate 1: 73 bpm Height: 5' SpO2: 97% Weight: 116 lbs 05/25/2016 Blood Pressure 1: 138/62 Code: 8480-6 BMI: 22.8 Code: 81103-7 Heart Rate 1: 76 bpm Height: 5' Weight: 117 lbs 05/17/2016 Blood Pressure 1: 116/70 Code: 8480-6 BMI: 22.8 Code: 59924-8 Heart Rate 1: 74 bpm Height: 5' SpO2: 94% Weight: 117 lbs 03/24/2016 Blood Pressure 1: 154/78 Code: 8480-6 BMI: 22.5 Code: 34836-3 Heart Rate 1: 78 bpm Height: 5' SpO2: 97% Weight: 115 lbs 02/02/2016 Blood Pressure 1: 132/70 Code: 8480-6 BMI: 22.3 Code: 40641-3 Heart Rate 1: 74 bpm Height: 5' SpO2: 94% Weight: 114 lbs 2016 Blood Pressure 1: 120/62 Code: 8480-6 BMI: 22.0 Code: 98250-3 Heart Rate 1: 68 bpm Height: 5' Weight: 112 lbs 8 oz 12/21/2015 Blood Pressure 1: 122/82 Code: 8480-6 BMI: 21.9 Code: 20187-2 Heart Rate 1: 83 bpm Height: 5' SpO2: 93% Temperature: 37.1 (C) / 98.7 (F) Weight: 112 lbs 11/03/2015 Blood Pressure 1: 122/72 Code: 8480-6 BMI: 22.4 Code: 89501-5 Heart Rate 1: 62 bpm Height: 5' Weight: 114 lbs 8 oz 10/19/2015 Blood Pressure 1: 138/62 Code: 8480-6 BMI: 21.1 Code: 79110-3 Heart Rate 1: 79 bpm Height: 5' Weight: 108 lbs 10/13/2015 Blood Pressure 1: 120/62 Code: 8480-6 BMI: 21.0 Code: 71239-4 Heart Rate 1: 76 bpm Height: 5' SpO2: 98% Weight: 108 lbs 09/29/2015 Blood Pressure 1: 130/70 Code: 8480-6 BMI: 20.2 Code: 67946-1 Heart Rate 1: 72 bpm Height: 5' Weight: 104 lbs 09/15/2015 Blood Pressure 1: 128/78 Code: 8480-6 BMI: 19.9 Code: 55197-6 Heart Rate 1: 72 bpm Height: 5' Weight: 102 lbs 8 oz 09/01/2015 Blood Pressure 1: 128/68 Code: 8480-6 BMI: 19.8 Code: 11788-9 Height: 5' Weight: 102 lbs 05/26/2015 Blood Pressure 1: 140/68 Code: 8480-6 BMI: 19.0 Code: 63059-0 Heart Rate 1: 70 bpm Height: 5' Weight: 98 lbs 05/21/2015 Blood Pressure 1: 140/78 Code: 8480-6 BMI: 19.2 Code: 53455-8 Heart Rate 1: 85 bpm Height: 5' SpO2: 95% Weight: 99 lbs 05/07/2015 Blood Pressure 1: 140/82 Code: 8480-6 BMI: 19.0 Code: 12149-7 Heart Rate 1: 76 bpm Height: 5' Weight: 98 lbs 03/23/2015 Blood Pressure 1: 142/60 Code: 8480-6 BMI: 18.6 Code: 36706-4 Heart Rate 1: 52 bpm Height: 5' Weight: 96 lbs 03/09/2015 Blood Pressure 1: 138/74 Code: 8480-6 BMI: 18.8 Code: 08267-1 Heart Rate 1: 60 bpm Height: 5' Weight: 97 lbs 10/30/2014 Blood Pressure 1: 112/82 Code: 8480-6 BMI: 19.0 Code: 37500-2 Heart Rate 1: 64 bpm Height: 5' Weight: 98 lbs 07/11/2014 Blood Pressure 1: 146/70 Code: 8480-6 BMI: 18.8 Code: 33039-8 Heart Rate 1: 68 bpm Height: 5' Weight: 97 lbs 05/20/2014 Blood Pressure 1: 142/76 Code: 8480-6 BMI: 18.6 Code: 37879-3 Heart Rate 1: 78 bpm Height: 5' Weight: 96 lbs 04/29/2014 Blood Pressure 1: 138/62 Code: 8480-6 BMI: 18.3 Code: 43039-0 Heart Rate 1: 80 bpm Height: 5' Weight: 94 lbs 8 oz 03/20/2014 Blood Pressure 1: 142/68 Code: 8480-6 BMI: 18.6 Code: 66540-5 Heart Rate 1: 96 bpm Height: 5' Weight: 96 lbs 03/05/2014 Blood Pressure 1: 122/72 Code: 8480-6 BMI: 18.8 Code: 09125-3 Heart Rate 1: 82 bpm Height: 5' SpO2: 97% Weight: 97 lbs 01/29/2014 Blood Pressure 1: 124/78 Code: 8480-6 BMI: 18.8 Code: 91092-1 Heart Rate 1: 60 bpm Height: 5' Weight: 97 lbs 01/14/2014 Blood Pressure 1: 120/58 Code: 8480-6 BMI: 19.2 Code: 73255-1 Heart Rate 1: 56 bpm Height: 5' Temperature: 36.9 (C) / 98.4 (F) Weight: 99 lbs 12/25/2013 Blood Pressure 1: 118/78 Code: 8480-6 BMI: 19.2 Code: 47466-6 Heart Rate 1: 68 bpm Height: 5' Weight: 99 lbs 11/27/2013 Blood Pressure 1: 102/68 Code: 8480-6 BMI: 19.4 Code: 70330-8 Heart Rate 1: 56 bpm Height: 5' Weight: 100 lbs 09/12/2013 Blood Pressure 1: 142/62 Code: 8480-6 BMI: 19.7 Code: 19673-2 Heart Rate 1: 72 bpm Height: 5'1" Weight: 104 lbs 08/15/2013 Blood Pressure 1: 152/92 Code: 8480-6 Heart Rate 1: 96 bpm Weight: 102 lbs 08/01/2013 Blood Pressure 1: 122/68 Code: 8480-6 BMI: 19.1 Code: 76108-0 Heart Rate 1: 68 bpm Height: 5'1" Weight: 101 lbs 07/01/2013 Blood Pressure 1: 130/72 Code: 8480-6 BMI: 19.5 Code: 74965-8 Heart Rate 1: 80 bpm Height: 5'1" Temperature: 36.1 (C) / 97.0 (F) Weight: 103 lbs 05/29/2013 Blood Pressure 1: 126/72 Code: 8480-6 BMI: 19.3 Code: 31724-4 Heart Rate 1: 80 bpm Height: 5'1" Weight: 102 lbs 05/15/2013 Blood Pressure 1: 156/74 Code: 8480-6 BMI: 19.3 Code: 18250-7 Heart Rate 1: 88 bpm Height: 5'1" Weight: 102 lbs 04/23/2013 Blood Pressure 1: 140/82 Code: 8480-6 BMI: 19.3 Code: 51585-5 Heart Rate 1: 72 bpm Height: 5'1" Weight: 102 lbs 03/21/2013 Blood Pressure 1: 142/74 Code: 8480-6 Heart Rate 1: 92 bpm Weight: 103 lbs 01/16/2013 Blood Pressure 1: 120/56 Code: 8480-6 BMI: 20.0 Code: 32243-1 Heart Rate 1: 72 bpm Height: 5'1" Weight: 106 lbs 12/19/2012 Blood Pressure 1: 118/66 Code: 8480-6 Heart Rate 1: 84 bpm Weight: 12/10/2012 Blood Pressure 1: 132/62 Code: 8480-6 Heart Rate 1: 64 bpm Weight: 103 lbs 10/30/2012 Blood Pressure 1: 122/66 Code: 8480-6 BMI: 19.9 Code: 98913-8 Heart Rate 1: 61 bpm Height: 5'1" [...] 1: 118/72 Code: 8480-6 BMI: 21.0 Code: 57026-6 Heart Rate 1: 66 bpm Height: 5'1" Respiratory Rate: 16 bpm Weight: 111 lbs 2012 Blood Pressure 1: 122/62 Code: 8480-6 Heart Rate 1: 68 bpm Weight: 110 lbs 12/01/2011 Blood Pressure 1: 150/60 Code: 8480-6 BMI: 20.8 Code: 52606-8 Heart Rate 1: 60 bpm Height: 5'1" Respiratory Rate: 16 bpm Weight: 110 lbs 11/23/2011 Blood Pressure 1: 170/68 Code: 8480-6 BMI: 21.1 Code: 71070-3 Heart Rate 1: 64 bpm Height: 5'1" Temperature: 36.3 (C) / 97.3 (F) Weight: 111 lbs 8 oz 10/17/2011 Blood Pressure 1: 148/62 Code: 8480-6 Heart Rate 1: 74 bpm 10/03/2011 Blood Pressure 1: 102/48 Code: 8480-6 BMI: 21.4 Code: 82232-5 Heart Rate 1: 76 bpm Height: 5'1" Respiratory Rate: 16 bpm Weight: 113 lbs 08/08/2011 Blood Pressure 1: 128/60 Code: 8480-6 Heart Rate 1: 80 bpm Respiratory Rate: 16 bpm Weight: 113 lbs 05/09/2011 Blood Pressure 1: 130/62 Code: 8480-6 BMI: 20.7 Code: 84708-0 Heart Rate 1: 64 bpm Height: 5'1" Respiratory Rate: 16 bpm Weight: 109 lbs 8 oz 03/29/2011 Blood Pressure 1: 120/62 Code: 8480-6 BMI: 20.2 Code: 90448-8 Heart Rate 1: 66 bpm Height: 5'1" Respiratory Rate: 12 bpm Weight: 107 lbs 03/15/2011 Blood Pressure 1: 120/64 Code: 8480-6 BMI: 19.8 Code: 95977-2 Heart Rate 1: 76 bpm Height: 5'1" Respiratory Rate: 16 bpm Weight: 105 lbs Functional Status No Functional Status data History of Present Illness Symptom Name Status Result Effective Date Notes Annual Medicare Wellness Exam Aspirin Use no [...] contacts 03/20/2014 sat next to neighbor in [place] who had tonsillitis sore throat Pertinent Findings [...] data Encounters Encounter Performer Location Codes Date ([id number]) 76400 EST. PATIENT, LEVEL IV Diagnosis: Essential (primary) hypertension[ICD10: I10] Diagnosis: Chronic atrial fibrillation[ICD10: I48.2] Diagnosis: Dysphonia[ICD10: R49.0] Karma Bahena MD, [facility] CPT-4: 24333 01/19/2017 ([id number]) Miscellaneous no charge Diagnosis: Cough[ICD10: R05] Diagnosis: Acute upper respiratory infection, unspecified[ICD10: J06.9] Laura Bahena MD, [facility] CPT-4: 41600 11/29/2016 13331 EST. PATIENT, LEVEL III Diagnosis: Cough[ICD10: R05] Diagnosis: Acute laryngopharyngitis[ICD10: J06.0] Katharine Bahena MD, [facility] CPT- 4: 38483 11/23/2016 ([id number]) 84061 EST. PATIENT, LEVEL III Diagnosis: Acute laryngopharyngitis[ICD10: J06.0] Laura Bahena MD, [facility] CPT-4: 80964 11/21/2016 ([id number]) Miscellaneous no charge Diagnosis: Laceration without foreign body of right forearm, subsequent encounter[ICD10: S51.811D] Karma Bahena MD [facility] CPT-4: 25720 11/17/2016 ([id number]) Miscellaneous no charge Diagnosis: Laceration without foreign body of right forearm, subsequent encounter[ICD10: S51.811D] Karma Bahena MD [facility] CPT-4: 44985 11/14/2016 ([id number]) Miscellaneous no charge Diagnosis: Laceration without foreign body of right forearm, subsequent encounter[ICD10: S51.811D] Karma Bahena MD [facility] CPT-4: 60729 11/11/2016 ([id number]) Miscellaneous no charge Diagnosis: Laceration without foreign body of right forearm, subsequent encounter[ICD10: S51.811D] Karma Bahena MD [facility] CPT-4: 93038 11/10/2016 ([id number]) 48835 EST. PATIENT, LEVEL II Diagnosis: Laceration without foreign body of right forearm, subsequent encounter[ICD10: S51.811D] Karma Bahena MD [facility] CPT-4: 54601 11/08/2016 ([id number]) 45171 EST. PATIENT, LEVEL IV Diagnosis: Atrophy of thyroid (acquired)[ICD10: E03.4] Diagnosis: Chronic atrial fibrillation[ICD10: I48.2] Diagnosis: Laceration without foreign body of right forearm, subsequent encounter[ICD10: S51.811D] Karma Bahena MD [facility] CPT-4: 10878 11/02/2016 ([id number]) 57137 EST. PATIENT, LEVEL III Diagnosis: Laceration without foreign body of right forearm, initial encounter[ICD10: S51.811A] Laura Bahena MD [facility] CPT-4: 74850 10/27/2016 ([id number]) 27002 EST. PATIENT, LEVEL IV Diagnosis: Essential (primary) hypertension[ICD10: I10] Diagnosis: Chronic atrial fibrillation[ICD10: I48.2] Karma Bahena MD [facility] CPT-4: 36968 08/31/2016 ([id number]) 92453 EST. PATIENT, LEVEL IV Diagnosis: Localized edema[ICD10: R60.0] Diagnosis: Essential (primary) hypertension[ICD10: I10] Diagnosis: Abdominal distension (gaseous)[ICD10: R14.0] Karma Bahena MD [facility] CPT-4: 14425 07/27/2016 ([id number]) 69332 EST. PATIENT, LEVEL IV Diagnosis: Essential (primary) hypertension[ICD10: I10] Diagnosis: Chronic atrial fibrillation[ICD10: I48.2] Diagnosis: Localized edema[ICD10: R60.0] Karma Bahena MD, [facility] CPT-4: 77292 06/23/2016 ([id number]) 53543 EST. PATIENT, LEVEL III Diagnosis: Localized edema[ICD10: R60.0] Karma Bahena MD, [facility] CPT-4: 93090 06/09/2016 ([id number]) 10024 EST. PATIENT, LEVEL III Diagnosis: Irritable bowel syndrome without diarrhea[ICD10: K58.9] Diagnosis: Pruritus ani[ICD10: L29.0] Karma Bahena MD, [facility] CPT-4: 94396 05/25/2016 ([id number]) 88408 EST. PATIENT, LEVEL III Diagnosis: Abdominal distension (gaseous)[ICD10: R14.0] Diagnosis: Encounter for screening mammogram for malignant neoplasm of breast[ICD10: Z12.31] Karma Bahena MD [facility] CPT-4: 81521 05/17/2016 ([id number]) 94233 EST. PATIENT, LEVEL IV Diagnosis: Essential (primary) hypertension[ICD10: I10] Diagnosis: First degree hemorrhoids[ICD10: K64.0] Diagnosis: Encounter for immunization[ICD10: Z23] Karma Bahena MD [facility] CPT-4: 05504 03/24/2016 ([id number]) 26869 EST. PATIENT, LEVEL III Diagnosis: Epidermal cyst[ICD10: L72.0] Diagnosis: Essential (primary) hypertension[ICD10: I10] Diagnosis: Chronic atrial fibrillation[ICD10: I48.2] Diagnosis: Other senior care (current) drug therapy[ICD10: Z79.899] Karma Bahena MD, [facility] CPT-4: 76634 02/02/2016 ([id number]) 45597 EST. PATIENT, LEVEL III Diagnosis: Acute anal fissure[ICD10: K60.0] Karma Bahena MD [facility] CPT-4: 28435 2016 ([id number]) 49324 EST. PATIENT, LEVEL III Diagnosis: Allergic rhinitis due to pollen[ICD10: J30.1] Diagnosis: Acute upper respiratory infection, unspecified[ICD10: J06.9] Laura Bahena MD, [facility] CPT-4: 51795 12/21/2015 ([id number]) 82969 EST. PATIENT, LEVEL III Diagnosis: Essential (primary) hypertension[ICD10: I10] Diagnosis: Chronic atrial fibrillation[ICD10: I48.2] Karma Bahena MD, [facility] CPT-4: 92770 11/03/2015 ([id number]) Miscellaneous no charge Diagnosis: Impacted cerumen, right ear[ICD10: H61.21] Katharine Bahena MD, [facility] CPT-4: 12896 10/19/2015 77595 EST. PATIENT, LEVEL IV Diagnosis: Impacted cerumen, right ear[ICD10: H61.21] Diagnosis: Other allergic rhinitis[ICD10: J30.89] Katharine Bahena MD, [facility] CPT- 4: 55024 10/13/2015 ([id number]) 93902 EST. PATIENT, LEVEL IV Diagnosis: Essential (primary) hypertension[ICD10: I10] Diagnosis: Chronic atrial fibrillation[ICD10: I48.2] Diagnosis: Urge incontinence[ICD10: N39.41] Diagnosis: Age-related osteoporosis without current pathological fracture[ICD10: M81.0] Karma Bahena MD, [facility] CPT-4: 96066 09/29/2015 ([id number]) 28296 EST. PATIENT, LEVEL IV Diagnosis: Essential (primary) hypertension[ICD10: I10] Diagnosis: Chronic atrial fibrillation[ICD10: I48.2] Diagnosis: Irritable bowel syndrome without diarrhea[ICD10: K58.9] Diagnosis: Unspecified hemorrhoids[ICD10: K64.9] Karma Bahena MD, [facility] CPT-4: 78050 09/15/2015 ([id number]) 90567 EST. 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 PATIENT, LEVEL III Diagnosis: Hematuria, unspecified[ICD10: R31.9] Diagnosis: Other urethritis[ICD10: N34.2] Diagnosis: Other specified noninflammatory disorders of vagina[ICD10: N89.8] Karma Bahena MD, [facility] CPT-4: 29356 05/26/2015 84859 EST. PATIENT, LEVEL IV Diagnosis: Gout, unspecified[ICD10: M10.9] Karma Bahena MD, [facility] CPT-4: 67951 05/21/2015 ([id number]) 13364 EST. PATIENT, LEVEL IV Diagnosis: Chronic atrial fibrillation[ICD10: I48.2] Diagnosis: Irritable bowel syndrome without diarrhea[ICD10: K58.9] Diagnosis: Cystocele, unspecified[ICD10: N81.10] Diagnosis: Urge incontinence[ICD10: N39.41] Diagnosis: Fecal smearing[ICD10: R15.1] Diagnosis: Hypothyroidism, unspecified[ICD10: E03.9] Karma Bahena MD, [facility] CPT-4: 84112 05/07/2015 ([id number]) 57657 EST. PATIENT, LEVEL III Diagnosis: Atrial fibrillation[ICD9: 427.31] Diagnosis: Bloating[ICD9: 787.3] Karma Bahena MD, [facility] CPT-4: 33619 03/23/2015 ([id number]) 19935 EST. PATIENT, LEVEL IV Diagnosis: Abdominal pain[ICD9: 789.00] Diagnosis: Atrial fibrillation[ICD9: 427.31] Diagnosis: ENCNTR LONG-ANTICOAG USE[ICD9: V58.61] Karma Bahena MD, [facility] CPT-4: 61279 03/09/2015 ([id number]) 92531 EST. PATIENT, LEVEL IV Diagnosis: HEMATURIA NOS[ICD9: 599.70] Diagnosis: Atrial fibrillation[ICD9: 427.31] Diagnosis: HYPOTHYROIDISM[ICD9: 244.9] Karma Bahena MD, [facility] CPT-4: 82338 10/30/2014 ([id number]) 82132 EST. PATIENT, LEVEL IV Diagnosis: Atrial fibrillation[ICD9: 427.31] Diagnosis: ALLERGIC RHINITIS[ICD9: 477.9] Diagnosis: Need for pneumococcal vaccine[ICD9: V03.82] Diagnosis: Osteoarthritis[ICD9: 715.90] Diagnosis: Osteoporosis[ICD9: 733.00] Karma Bahena MD, [facility] CPT-4: 12655 07/11/2014 ([id number]) 88835 EST. PATIENT, LEVEL III Diagnosis: Urge incontinence[ICD9: 788.31] Diagnosis: Dysuria[ICD9: 788.1] Karma Bahena MD [facility] CPT-4: 40139 05/20/2014 ([id number]) 47612 EST. PATIENT, LEVEL IV Diagnosis: Atrial fibrillation[ICD9: 427.31] Diagnosis: Hematuria[ICD9: 599.70] Diagnosis: Dysuria[ICD9: 788.1] Diagnosis: ESSENTIAL HYPERTENSION[ICD9: 401.9] Karma Bahena MD, [facility] CPT- 4: 78872 04/29/2014 ([id number]) 65746 EST. PATIENT, LEVEL IV Diagnosis: ESSENTIAL HYPERTENSION[ICD9: 401.9] Diagnosis: ALLERGIC RHINITIS[ICD9: 477.9] Karma Bahena MD [facility] CPT-4: 57784 03/20/2014 ([id number]) 85578 EST. PATIENT, LEVEL IV Diagnosis: ESSENTIAL HYPERTENSION[ICD9: 401.9] Diagnosis: ATRIAL FIBRILLATION[ICD9: 427.31] Diagnosis: Irritable bowel[ICD9: 564.1] Karma Bahena MD [facility] CPT-4: 53640 03/05/2014 ([id number]) 97113 EST. PATIENT, LEVEL IV Diagnosis: Esophageal reflux[ICD9: 530.81] Diagnosis: DIARRHEA[ICD9: 787.91] Diagnosis: ABDOM PAIN NOS SITE[ICD9: 789.00] Karma Bahena MD [facility] CPT- 4: 24346 01/29/2014 ([id number]) 38197 EST. PATIENT, LEVEL III Diagnosis: Irritable bowel[ICD9: 564.1] Diagnosis: DIARRHEA[ICD9: 787.91] Laura Bahena MD, [facility] CPT-4: 56367 01/14/2014 ([id number]) 11262 EST. PATIENT, LEVEL IV Diagnosis: ESSENTIAL HYPERTENSION[ICD9: 401.9] Diagnosis: ATRIAL FIBRILLATION[ICD9: 427.31] Diagnosis: URGE INCONTINENCE[ICD9: 788.31] Diagnosis: MALAISE AND FATIGUE[ICD9: 780.79] Diagnosis: Dyspnea[ICD9: 786.09] Karma Bahena MD, [facility] CPT-4: 06987 12/25/2013 ([id number]) 26337 EST. PATIENT, LEVEL IV Diagnosis: ESSENTIAL HYPERTENSION[SNOMED: 81553206] Diagnosis: ATRIAL FIBRILLATION[ICD9: 427.31] Diagnosis: Abdominal pain[ICD9: 789.00] Diagnosis: ESOPHAGEAL REFLUX[ICD9: 530.81] Karma Bahena MD [facility] CPT-4: 16978 11/27/2013 ([id number]) 10658 EST. PATIENT, LEVEL IV Diagnosis: ESSENTIAL HYPERTENSION[SNOMED: 77922870] Diagnosis: ATRIAL FIBRILLATION[ICD9: 427.31] Diagnosis: Chronic osteoarthritis[ICD9: 715.90] Karma Bahena MD [facility] CPT- 4: 78147 09/12/2013 ([id number]) 47708 EST. PATIENT, LEVEL III Diagnosis: ESSENTIAL HYPERTENSION[SNOMED: 12048938] Diagnosis: Bruising[ICD9: 924.9] Diagnosis: ENCNTR LONG-RX USE NEC[ICD9: V58.69] Karma Bahena MD [facility] CPT- 4: 02330 08/15/2013 ([id number]) 52810 EST. PATIENT, LEVEL IV Diagnosis: ESSENTIAL HYPERTENSION[SNOMED: 99622112] Diagnosis: Hematuria[ICD9: 599.70] Diagnosis: Dysuria[ICD9: 788.1] Karma Bahena MD [facility] CPT-4: 34214 08/01/2013 ([id number]) 58677 EST. PATIENT, LEVEL III Diagnosis: UTI[ICD9: 599.0] Diagnosis: Hematuria[ICD9: 599.70] Laura Bahena MD [facility] CPT-4: 03266 07/01/2013 ([id number]) 80361 EST. PATIENT, LEVEL III Diagnosis: ATRIAL FIBRILLATION[ICD9: 427.31] Diagnosis: ESSENTIAL HYPERTENSION[SNOMED: 85677300] Karma Bahena MD [facility] CPT-4: 99400 05/29/2013 ([id number]) 52838 EST. PATIENT, LEVEL IV Diagnosis: Atrial fibrillation[ICD9: 427.31] Diagnosis: Encounter for monitoring digoxin therapy[ICD9: V58.83] Diagnosis: ESSENTIAL HYPERTENSION[SNOMED: 80235948] Karma Bahena MD, [facility] CPT-4: 38169 05/15/2013 ([id number]) 61258 EST. PATIENT, LEVEL IV Diagnosis: ESSENTIAL HYPERTENSION[SNOMED: 09898178] Diagnosis: ATRIAL FIBRILLATION[ICD9: 427.31] Diagnosis: PALPITATIONS[ICD9: 785.1] Diagnosis: Dizziness and giddiness[ICD9: 780.4] Karma Bahena MD, [facility] CPT- 4: 77623 04/23/2013 ([id number]) 88835 EST. PATIENT, LEVEL III Diagnosis: OTHER CONSTIPATION[ICD9: 564.09] Diagnosis: ABDOM PAIN NOS SITE[ICD9: 789.00] Laura Bahena MD, [facility] CPT- 4: 92017 03/21/2013 ([id number]) 78207 EST. PATIENT, LEVEL IV Diagnosis: ESSENTIAL HYPERTENSION[SNOMED: 81317503] Diagnosis: Atrial fibrillation[ICD9: 427.31] Karma Bahena MD, [facility] CPT- 4: 60927 01/16/2013 ([id number]) Miscellaneous no charge Diagnosis: CELLULITIS OF HAND[ICD9: 682.4] Karma Bahena MD [facility] CPT-4: 83290 12/19/2012 ([id number]) Miscellaneous no charge Diagnosis: ENCOUNTER FOR THERAPEUTIC DRUG MONITORING[ICD9: V58.83] Diagnosis: CELLULITIS OF HAND[ICD9: 682.4] aKrma Bahena MD [facility] CPT-4: 16850 12/14/2012 Miscellaneous no charge Diagnosis: CELLULITIS OF HAND[ICD9: 682.4] Karma Bahena MD, [facility] CPT-4: 73680 12/12/2012 23813 EST. PATIENT, LEVEL II Diagnosis: CELLULITIS OF HAND[ICD9: 682.4] Diagnosis: ENCNTR LONG-RX USE NEC[ICD9: V58.69] Diagnosis: LONG-TERM USE ANTICOAGUL[ICD9: V58.61] Karma Bahena MD, [facility] CPT-4: 24974 12/11/2012 ([id number]) 66944 EST. PATIENT, LEVEL III Diagnosis: CELLULITIS OF HAND[ICD9: 682.4] PARVEEN Freitas MD CPT-4: 76785 12/10/2012 ([id number]) 20369 EST. PATIENT, LEVEL IV Diagnosis: Elevated digoxin level[ICD9: 796.0] Diagnosis: ATRIAL FIBRILLATION[ICD9: 427.31] Diagnosis: Inflammatory arthritis[ICD9: 714.9] PARVEEN Freitas MD CPT- 4: 61977 10/30/2012 ([id number]) 20262 EST. PATIENT, LEVEL IV Diagnosis: Atrial fibrillation[ICD9: 427.31] Diagnosis: Anticoagulant long-term use[ICD9: V58.61] Diagnosis: ESSENTIAL HYPERTENSION[SNOMED: 25959383] PARVEEN Freitas MD CPT-4: 06691 08/08/2012 ([id number]) 92282 EST. PATIENT, LEVEL IV Diagnosis: ABDOM PAIN NOS SITE[ICD9: 789.00] Diagnosis: Constipation - functional[ICD9: 564.09] Diagnosis: EDEMA[ICD9: 782.3] Diagnosis: ATRIAL FIBRILLATION[ICD9: 427.31] [facility] CPT- 4: 96564 07/11/2012 ([id number]) 65476 EST. PATIENT, LEVEL III Diagnosis: Cystocele[ICD9: 618.01] Diagnosis: Rectocele[ICD9: 618.04] PARVEEN Freitas MD CPT-4: 55701 05/08/2012 ([id number]) 80618 EST. 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 PATIENT, LEVEL IV Diagnosis: ATRIAL FIBRILLATION[ICD9: 427.31] Diagnosis: URGE INCONTINENCE[ICD9: 788.31] Diagnosis: MALAISE AND FATIGUE[ICD9: 780.79] Diagnosis: Dyspnea[ICD9: 786.09] Karma Bahena MD [facility] CPT-4: 67532 02/20/2012 85259 EST. PATIENT, LEVEL IV Diagnosis: Hematuria[ICD9: 599.70] Diagnosis: Vaginal yeast infection[ICD9: 112.1] Diagnosis: ATRIAL FIBRILLATION[ICD9: 427.31] Laura Bahena MD [facility] CPT- 4: 85567 02/13/2012 ([id number]) 82241 EST. PATIENT, LEVEL IV Diagnosis: Atrial fibrillation[ICD9: 427.31] Diagnosis: Anticoagulation goal of INR 2 to 3[ICD9: V58.83] Diagnosis: Urinary incontinence, urge[ICD9: 788.31] Diagnosis: ESSENTIAL HYPERTENSION[SNOMED: 56378824] Karma Bahena MD, [facility] CPT-4: 10316 02/01/2012 ([id number]) 88102 EST. PATIENT, LEVEL IV Diagnosis: Atrial fibrillation[ICD9: 427.31] Diagnosis: Anticoagulant long-term use[ICD9: V58.61] Diagnosis: ESSENTIAL HYPERTENSION[SNOMED: 77693887] Karma Bahena MD [facility] CPT-4: 25515 2012 54288 EST. PATIENT, LEVEL IV Diagnosis: UTI[ICD9: 599.0] Diagnosis: ESSENTIAL HYPERTENSION[SNOMED: 25793229] Diagnosis: MALAISE AND FATIGUE[ICD9: 780.79] Diagnosis: Esophageal reflux[ICD9: 530.81] Karma Bahena MD [facility] CPT-4: 50697 12/01/2011 ([id number]) 53605 EST. PATIENT, LEVEL IV Diagnosis: UTI (urinary tract infection)[ICD9: 599.0] Diagnosis: ESSENTIAL HYPERTENSION[SNOMED: 11906080] Diagnosis: URGE INCONTINENCE[ICD9: 788.31] Karma Bahena MD, [facility] CPT-4: 62540 11/23/2011 ([id number]) 80776 EST. PATIENT, LEVEL IV Diagnosis: ESSENTIAL HYPERTENSION[SNOMED: 92962281] Diagnosis: IMPACTED CERUMEN[ICD9: 380.4] Diagnosis: MALAISE AND FATIGUE[ICD9: 780.79] Diagnosis: EDEMA[ICD9: 782.3] Karma Bahena MD, [facility] CPT-4: 65732 10/03/2011 54120 EST. PATIENT, LEVEL IV Diagnosis: ESSENTIAL HYPERTENSION[SNOMED: 11993266] Diagnosis: Generalized osteoarthritis[ICD9: 715.09] Diagnosis: OSTEOPOROSIS[ICD9: 733.00] Karma Bahena MD, [facility] CPT-4: 94005 08/08/2011 27582 EST. PATIENT, LEVEL IV Diagnosis: Muscle cramp[ICD9: 729.82] Diagnosis: Torticollis[ICD9: 723.5] Diagnosis: Rash[ICD9: 782.1] Karma Bahena MD, [facility] CPT-4: 84132 05/09/2011 31614 EST. PATIENT, LEVEL IV Diagnosis: Leg cramps, sleep related[ICD9: 327.52] Diagnosis: Underweight[ICD9: 783.22] Karma Bahena MD, [facility] CPT-4: 24859 03/29/2011 71835 EST. PATIENT, LEVEL IV Diagnosis: UTI[ICD9: 599.0] Diagnosis: Urge incontinence[ICD9: 788.31] Diagnosis: Loss of weight[ICD9: 783.21] Diagnosis: Palpitations[ICD9: 785.1] Diagnosis: Peripheral neuropathy, idiopathic[ICD9: 356.9] Karma Bahena MD, [facility] CPT-4: 51390 03/15/2011 Plan of Care Planned Activity Notes Codes Status Date Referral: Dr Jeff Referral Completed 01/31/2017 Visit [...] risk and to maintain independence in the home.Today we discussed the need for the patient to create paperwork for Advanced directives as well as for the patient to provide this office with a copy of her DOPA paperwork for health care surrogate. 01/23/2017 Appointment: Katharine Dai WPtel: [facility] [facility] - Annual Wellness Visit 01/23/2017 Patient Education: Patient Medication Summary Completed 01/23/2017 Visit Plan: Hypertension - well controlled - continue with current medications, continue with no added salt diet. Pt has been encouraged to exercise daily.The pt has been advised to call the office if there are any acute concerns about change in blood pressure readings at home.Hoarseness of voice - recommended a referral to dr. santy poon.Atrial Fibrillation - pt on chronic anticoagulation and is currently rate controlled. The pt is to have labs done as appropriate to monitor medication levels and is to report if they start to feel as if their heart rate is becoming uncontrolled. 01/19/2017 Appointment: Karma Bahena WPtel: [address] [place], [place] [phone] (15 min) Moderate 01/19/2017 Patient Education: Patient Medication Summary Completed 01/19/2017 Care Plan: Referral Order SNOMED-CT : [id number] Pending 01/19/2017 Appointment: Karma Bahena WPtel: [address] [place], [place] [id number] (15 min) Moderate 01/04/2017 Appointment: Karma Bahena WPtel: [address] [place], [place] [phone] (15 min) Moderate 12/28/2016 Visit Plan: [id number] zpack-call if symptoms do not resolve or if any worse. Patient verbalized understanding of plan. 11/29/2016 Appointment: Laura Colin WPtel: [address] [place], [place] [phone] [place] (15 min) Moderate 11/29/2016 Patient Education: Patient Medication Summary Completed 11/29/2016 Visit Plan: Allergies - chronic - recommended pt to use allergy medication as prescribed. Pt has been counseled as to the appropriate use of the medication. Pt to call if allergy symptoms are not controlled with the medication.If using nasal spray, instructions as follows: Nasal spray- use twice daily, one spray per nostril twice daily, after 30 minutes, rinse out nose with saline spray.. Use opposite hand per nostril to spray in the nasal steroid allergy spray.URI - Pt advised to increase fluids, vitamin C. Discussed natural and expected course of this diagnosis and need to alert me if symptoms do not follow expected course, or if any worse. RX sent to patient's pharmacy. 11/23/2016 Appointment: Katharine Dai WPtel: [facility] (15 min) Moderate 11/23/2016 Patient Education: Patient Medication Summary Completed 11/23/2016 Visit Plan: Pharyngitis-Discussed natural and expected course of this diagnosis and need to alert me if symptoms do not follow expected course, or if any worse. Recommended salt water gargles as needed for pain. Tylenol/motrin as needed for fever/discomfort. 11/21/2016 Appointment: Laura Colin WPtel: [phone] (15 min) Moderate 11/21/2016 Patient Education: Patient [...] symptoms. 11/08/2016 Appointment: Kar[facility] Bahen[facility]Ptel[facility] [phone] [facility] [id number] (10 min) Simple 11/08/2016 Patient Education: Patient [...] 6 months based on previous levels of control.Atrial Fibrillation - pt on chronic anticoagulation and is currently rate controlled. The pt is to have labs done as appropriate to monitor medication levels and is to report if they start to feel as if their heart rate is becoming uncontrolled.Laceration of arm - healing - continue with supportive care, bactroban, etc. 11/02/2016 Appointment: Karma Bahena WPtel: [phone] [facility] [address] (15 min) Moderate 11/02/2016 Appointment: Nurse Visit 11/02/2016 Patient Education: Patient Medication Summary Completed 11/02/2016 Appointment: Nurse Visit 10/31/2016 Visit Plan: Laceration-right forearm- Pt was instructed to keep the wound clean, cleanse with sterile saline, use bactroban ointment, call if redness, pustular drainage, or any other acute concerns. Follow up Monday for dressing changes. 10/27/2016 Appointment: Laura Colin WPtel: 1015 [phone] [place] (30 min) Complex 10/27/2016 Patient Education: Patient Medication Summary Completed 10/27/2016 Visit Plan: Hypertension - well controlled - continue with current medications, continue with no added salt diet. Pt has been encouraged to exercise daily.The pt has been advised to call the office if there are any acute concerns about change in blood pressure readings at home.Hoarseness- recommended pt to wait to have eval by Dr. Jeff until pt is seen by Dr. Nelson - symptoms stable - continue current meds - no change in symptoms. 08/31/2016 Appointment: Karma Bahena WPtel: 1015 [facility] [address] (15 min) Moderate 08/31/2016 Patient Education: Patient [...] you to Dr. Jeff for an ENT evaluation.stop the lasix on a scheduled basis and only take if you have significant swelling that the spironolactone is not helping.stop potassium chloridestart spironolactone 25mg daily and let me know if this helps with your swelling. 07/27/2016 Appointment: Karma Bahena WPtel: [phone] (15 min) Moderate 07/27/2016 Patient Education: Patient Medication Summary Completed 07/27/2016 Patient Education: Hypertension Completed 07/27/2016 Visit Plan: Hypertension - well controlled - continue with current medications, continue with no added salt diet. Pt has been encouraged to exercise daily.The pt has been advised to call the office if there are any acute concerns about change in blood pressure readings at home.Atrial Fibrillation - pt on chronic anticoagulation and is currently rate controlled. The pt is to have labs done as appropriate to monitor medication levels and is to report if they start to feel as if their heart rate is becoming uncontrolled.Edema - continue with compression and prn use of lasix 06/23/2016 Appointment: Karma Bahena WPtel: [phone] (15 min) Moderate 06/23/2016 Patient Education: Patient Medication Summary Completed 06/23/2016 Patient Education: Hypertension Completed 06/23/2016 Visit Plan: Edema - with Dyspnea - RX for laxis and compression socks - pt to call if not improving. 06/09/2016 Appointment: Karma Bahena WPtel: [phone] (15 min) Moderate 06/09/2016 Patient Education: Patient Medication Summary Completed 06/09/2016 Visit Plan: Abdominal pain and rectal itching - recommended pt to use betamethasone on vaginal/rectal region, monitor symptoms call if not improving. Continue with beano and simethicone 05/25/2016 Appointment: Karma Bahena WPtel: [phone] (15 min) Moderate 05/25/2016 Patient Education: Patient Medication Summary Completed 05/25/2016 Care Plan: SCREENINGMAMMOGRAPHYDIGITAL [facility] : [id number] Pending 05/20/2016 Visit Plan: Abdominal distension - use simethicone four times daily - after meals - if it does not help - in the next two weeks - call the office and we will do a ct scan of the abdomen and pelvis 05/17/2016 Appointment: Karma Bahena WPtel: [phone] (15 min) Moderate 05/17/2016 Patient Education: Patient Medication Summary Completed 05/17/2016 Visit Plan: Hypertension - well controlled - continue with current medications, continue with no added salt diet. Pt has been encouraged to exercise daily.The pt has been advised to call the office if there are any acute concerns about change in blood pressure readings at home.flu shot todayHemorrhoids - continue with rx for prn steroid ointment 03/24/2016 Appointment: Karma Bahena WPtel: [phone] (30 min) Complex 03/24/2016 Patient Education: Patient Medication Summary Completed 03/24/2016 Patient Education: Hypertension Completed 03/24/2016 Visit Plan: Cyst - epidermal cyst - pt to continue to use prn betamethasone on rectum for discomfort.HTN - and Afib - controlled/stable - no change in current mangement - pt to call if she notices her blood pressure or heart rate becoming uncontrolled. 02/02/2016 Patient Education: Patient Medication Summary Completed 02/02/2016 Visit Plan: boil ease or recticare - if having acute or worsening discomfort - call doctor - may need an antibiotic.MUCINEX 600mg twice daily for decrease in mucus in throat 2016 Patient Education: Patient Medication Summary Completed 2016 Visit Plan: URI/ALLERGIES- recommended pt to use allergy medication as prescribed. Pt has been counseled as to the appropriate use of the medication. Pt to call if allergy symptoms are not controlled with the medication.If using nasal spray, instructions as follows: Nasal spray- use twice daily, one spray per nostril twice daily, after 30 minutes, rinse out nose with saline spray.. Use opposite hand per nostril to spray in the nasal steroid allergy spray. 12/21/2015 Appointment: Laura Colin WPtel: 1011 [phone] 12/21/2015 Patient Education: Patient Medication Summary Completed 12/21/2015 Visit Plan: Hypertension - well controlled - continue with current medications, continue with no added salt diet. Pt has been encouraged to exercise daily.The pt has been advised to call the office if there are any acute concerns about change in blood pressure readings at home.Atrial Fibrillation - pt on chronic anticoagulation and is currently rate controlled. The pt is to have labs done as appropriate to monitor medication levels and is to report if they start to feel as if their heart rate is becoming uncontrolled. 11/03/2015 Appointment: Kamra Bahena WPtel: 101[address] [facility] [address] (15 min) Moderate 11/03/2015 Patient Education: Patient Medication Summary Completed 11/03/2015 Visit Plan: Cerumen Impaction - The impacted cerumen was removed with the use of the ear currette. The patient tolerated the procedure without incident and had improvement in hearing.The wax was removed by the practitioner due [...] allergy symptoms are not controlled with the medication.If using nasal spray, instructions as follows: Nasal [...] diet. Pt has been encouraged to exercise daily.The pt has been advised to call the office if there are any acute concerns about change in blood pressure readings at home.Osteoporosis - prolia shot to be scheduled ASAPAfib - rate controlledUrge Incontinence - recommended pt to start on [...] the office next week for practitioner to review.The pt is to call for acute concerns.Atrial Fibrillation - pt on chronic anticoagulation and is currently rate controlled. The pt is to have labs done as appropriate to monitor medication levels and is to report if they start to feel as if their heart rate is becoming uncontrolled.Hemorrhoid - recommended pt to use betamethasone ointment [...] as if their heart rate is becoming uncontrolled.Hypertension - well controlled - continue with current medications, continue with no added salt diet. Pt has been encouraged to exercise daily.The pt has been advised to call the office if there are any acute concerns about change in blood pressure readings at home.Hypothyroidism - pt with chronic hypothyroidism, continue with current medication, will monitor pt to signs or symptoms of lack of adequate supplementation. Pt is to continue with current dose of medication unless directed otherwise. Check labs at regular intervals wither q 3 months or q 6 months based on previous levels of control.Left renal cancer-recently had left kidney and ureter removed in [place]-doing well 09/01/2015 Appointment: (30 min) Complex 09/01/2015 Patient Education: Patient Medication Summary Completed 09/01/2015 Patient Education: Hypertension Completed 09/01/2015 Appointment: Karma Bahena WPtel: [phone] (15 min) Moderate 07/13/2015 Visit Plan: Hematuria/Urethritis [...] to be given results of labs when available.Skin lesion - will monitor for change in size, color, consistency, recheck at follow up appointment. 05/21/2015 Patient Education: Patient Medication Summary Completed 05/21/2015 Appointment: Injection 05/13/2015 Patient Education: Patient Medication Summary Completed 05/13/2015 Patient Education: Hypertension Completed 05/13/2015 Care Plan: Referral Order SNOMED-CT : [id number] Ordered 05/08/2015 Visit Plan: Atrial Fibrillation - pt on chronic anticoagulation and is currently rate controlled. The pt is to have labs done as appropriate to monitor medication levels and is to report if they start to feel as if their heart rate is becoming uncontrolled.Hypothyroidism - pt with chronic hypothyroidism, continue with current medication, will monitor pt to signs or symptoms of lack of adequate supplementation. Pt is to continue with current dose of medication unless directed otherwise. Check labs at regular intervals wither q 3 months or q 6 months based on previous levels of control.Decrease synthroid dose to 1/2 pill two days a week and a full pill on other days.Urge incontinence - with cystocele - and fecal symptoms - referral to Dr. Collins. 05/07/2015 Appointment: Karma Bahena WPtel: [phone] [facility] [place] (15 min) Moderate 05/07/2015 Patient Education: Patient Medication Summary Completed 05/07/2015 Appointment: Nurse Visit 04/16/2015 Visit Plan: Atrial Fibrillation - pt on chronic anticoagulation and is currently rate controlled. The pt is to have labs done as appropriate to monitor medication levels and is to report if they start to feel as if their heart rate is becoming uncontrolled.Abdominal pain-resolvedGas/bloating-continue gas x- avoid gas forming foods-monitor symptoms 03/23/2015 Appointment: (30 min) Complex 03/23/2015 Patient Education: Patient Medication Summary Completed 03/23/2015 Visit Plan: Abdominal pain - improving - recommended bland diet, monitor abdominal pain, if worsens pt is to call the office JANET or go to the emergency room if the pain is significantly increasing.Atrial Fibrillation - pt on chronic anticoagulation and is currently rate controlled. The pt is to have labs done as appropriate to monitor medication levels and is to report if they start to feel as if their heart rate is becoming uncontrolled. 03/09/2015 Patient Education: Patient Medication Summary Completed 03/09/2015 Visit Plan: Hematuria - check UA. Referral to urologist.Hypertension - well controlled - continue with current medications, continue with no added salt diet. Pt has been encouraged to exercise daily.The pt has been advised to call the office if there are any acute concerns about change in blood pressure readings at home.Atrial Fibrillation - pt on chronic anticoagulation and is currently rate controlled. The pt is to have labs done as appropriate to monitor medication levels and is to report if they start to feel as if their heart rate is becoming uncontrolled. 10/30/2014 Appointment: Karma Bahena WPtel: [facility] [place] Follow up 10/30/2014 Patient Education: Patient Medication Summary Completed 10/30/2014 Appointment: Karma Bahena WPtel: [facility]5 [facility] Follow up 07/22/2014 Visit Plan: Atrial Fibrillation - pt on chronic anticoagulation and is currently rate controlled. The pt is to have labs done as appropriate to monitor medication levels and is to report if they start to feel as if their heart rate is becoming uncontrolled.Allergies - chronic - recommended pt to use allergy medication as prescribed. Pt has been counseled as to the appropriate use of the medication. Pt to call if allergy symptoms are not controlled with the medication.If using nasal spray, instructions as follows: Nasal spray- use twice daily, one spray per nostril twice daily, after 30 minutes, rinse out nose with saline spray.. Use opposite hand per nostril to spray in the nasal steroid allergy spray.Recommended pt to continue with physical therapy for general osteoarthritis and osteoporosis.pt to increase vitamin d to 2000 units dailyrecommended to increase iron containing foods.dr will have staff call hospital to see if pneumonia vaccine was given in hospital. 07/11/2014 Appointment: Karma Bahena WPtel: [address] [place], [place] [id number] Sick 07/11/2014 Patient Education: Patient Medication Summary Completed 07/11/2014 Appointment: Karma Bahena WPtel: [address] [place], [place] [id number] Follow up 07/07/2014 Visit Plan: Urinary incontinence [...] to see if there is any bladder irritation.keep using the Premarin - use about 25Cent size of cream onto finger to apply to urethra and do this three times weekly. 05/20/2014 Appointment: Karma Bahena WPtel: [address] [place], [place] [id number] Follow up 05/20/2014 Patient Education: Patient Medication Summary Completed 05/20/2014 Appointment: Karma Bahena WPtel: [address] [place], [place] [id number] Lab Draw 05/14/2014 Patient Education: Patient Medication [...] the office next week for practitioner to review.The pt is to call for acute concerns.Atrial Fibrillation - pt on chronic anticoagulation and is currently rate controlled. The pt is to have labs done as appropriate to monitor medication levels and is to report if they start to feel as if their heart rate is becoming uncontrolled.Incontinence - recommended vesicare. 04/29/2014 Appointment: Karma Bahena WPtel: [facility] Follow up 04/29/2014 Patient Education: Patient Medication [...] the office next week for practitioner to review.The pt is to call for acute concerns.Byron is to increase the lisinopril to 20mg twice daily (in morning and eveningAllergies - chronic - recommended pt to use allergy medication as prescribed. Pt has been counseled as to the appropriate use of the medication. Pt to call if allergy symptoms are not controlled with the medication.If using nasal spray, instructions as follows: Nasal spray- use twice daily, one spray per nostril twice daily, after 30 minutes, rinse out nose with saline spray.. Use opposite hand per nostril to spray in the nasal steroid allergy spray.use over the counter nasacort Nasal spray- use twice daily, one spray per nostril twice daily, after 30 minutes, rinse out nose with saline spray.. Use opposite hand per nostril to spray in the nasal steroid (nasacort) allergy spray. 03/20/2014 Appointment: Karma Bahena WPtel: [address] [place], [place] [id number] Sick 03/20/2014 Patient Education: Patient Medication Summary Completed 03/20/2014 Patient Education: Hypertension Completed 03/20/2014 Visit Plan: Hypertension - well controlled - continue with current medications, continue with no added salt diet. Pt has been encouraged to exercise daily.The pt has been advised to call the office if there are any acute concerns about change in blood pressure readings at home.Atrial Fibrillation - pt on chronic anticoagulation and is currently rate controlled. The pt is to have labs done as appropriate to monitor medication levels and is to report if they start to feel as if their heart rate is becoming uncontrolled. 03/05/2014 Appointment: Karma Baehna WPtel: [facility]5 [facility] [address] Follow up 03/05/2014 Patient Education: Patient Medication Summary Completed 03/05/2014 Patient Education: Hypertension Completed 03/05/2014 Visit Plan: Esophageal Reflux - the patient has been counseled against excessive intake of caffiene, spicy foods, peppermint, and cinnamon - all of which can exacerbate esophageal reflux.The patient is to take medications as prescribed and call the office if the symptoms are not improving.Abdominal pain - persistent - with diarrhea interemittent - history of ischemic bowel - pt to have CTscan, and will be called with report. 01/29/2014 Appointment: Karma Bahena WPtel: [address] [place], [place] [id number] Follow up 01/29/2014 Patient Education: Patient Medication [...] as if their heart rate is becoming uncontrolled.HTN - controlled - no change in medications.Pt has fatigue, afib, weight loss, hx second hand smoke exposure,and dyspnea on exertion - will ask [place] do an overnight oxygen study on [place] as she has cardiac history, weight loss, and nocturnal hypoxemia may be a part of her weight loss and fatigue. 12/25/2013 Appointment: Karma Bahena WPtel: [address] [facility] [address] Follow up 12/25/2013 Patient Education: Patient Medication Summary Completed 12/25/2013 Patient Education: Hypertension Completed 12/25/2013 Visit Plan: Hypertension - well controlled - continue with current medications, continue with no added salt diet. Pt has been encouraged to exercise daily.The pt has been advised to call the [...] - all of which can exacerbate esophageal reflux.The patient is to take medications as prescribed and call the office if the symptoms are not improving.Pt to stay on omeprazole and carafate.Gas/Bloating - pt to increase gasex and beano to help alleviate the discomfort in abdomen and start on probiotic twice daily. 11/27/2013 Appointment: Karma Bahena WPtel: 101 [facility] Follow up 11/27/2013 Patient Education: Patient Medication Summary Completed 11/27/2013 Patient Education: Hypertension Completed 11/27/2013 Visit Plan: Atrial Fibrillation - pt on chronic anticoagulation and is currently rate controlled. The pt is to have labs done as appropriate to monitor medication levels and is to report if they start to feel as if their heart rate is becoming uncontrolled.Digoxin and Coumadin doses are good for control of anticoagulation and heart rate.Osteoarthritis - send pt to [facility] physical therapy for gereral osteoarhtritis program for strengthening and pain reduction. Hypertension - well controlled - continue with current medications, continue with no added salt diet. Pt has been encouraged to exercise daily.The pt has been advised to call the office if there are any acute concerns about change in blood pressure readings at home. 09/12/2013 Appointment: Karma Bahena WPtel: [facility]5 [facility] [address] Follow up 09/12/2013 Patient Education: Patient Medication Summary Completed 09/12/2013 Patient Education: Hypertension Completed 09/12/2013 Appointment: Karma Bahena WPtel: [facility]5 [facility] [address] Follow up 08/21/2013 Visit Plan: Hypertension - [...] the office next week for practicioner to review.The pt is to call for acute concerns.Bruising-left leg-no injuury-on coumadin-check PT/INR 08/15/2013 Appointment: Karma Bahena WPtel: [facility]5 [facility] [address] Follow up 08/15/2013 Patient Education: Patient Medication [...] the office next week for practicioner to review.The pt is to call for acute concerns.Hematuria/dysuria - check urine, check coumadin level to make sure pt does not have excessive amt of medication causing high inr and bleeding in bladder. Advised pt to use moisture wipes and aloe based toilet paper to help decrease irritation of urethra. 08/01/2013 Appointment: Karma Bahena WPtel: 1015 [facility] [place] Follow up 08/01/2013 Patient Education: Patient Medication Summary Completed 08/01/2013 Patient Education: Hypertension Completed 08/01/2013 Appointment: Laura Colin WPtel: [facility]5 [phone] [place] Lab Draw 07/29/2013 Patient Education: Patient Medication Summary Completed 07/29/2013 Visit Plan: Osteoporosis-prolia on june 25-patient to let Dr Hansen know 07/01/2013 Appointment: Laura Colin WPtel: [facility]5 [phone] [place] Follow up 07/01/2013 Appointment: Karma Bahena WPtel: [address] [place], [place] [id number] [place] Follow up 07/01/2013 Patient Education: Patient Medication Summary Completed 07/01/2013 Appointment: Karma Bahena WPtel: [address] [place] [id number] [place] Follow up 06/25/2013 Appointment: Karma Bahena WPtel: [address] [place] [id number] [place] Lab Draw 06/20/2013 Patient Education: Patient Medication Summary Completed 06/20/2013 Appointment: Karma Bahena WPtel: [facility] [place] Lab Draw 06/19/2013 Visit Plan: Atrial [...] diet. Pt has been encouraged to exercise daily.The pt has been advised to call the office if there are any acute concerns about change in blood pressure readings at home. 05/29/2013 Appointment: Karma Bahena WPtel: 101[address] [facility] [address] Follow up 05/29/2013 Patient Education: Patient Medication Summary Completed 05/29/2013 Patient Education: Hypertension Completed 05/29/2013 Visit Plan: Atrial Fibrillation - pt on chronic anticoagulation and is currently rate controlled. The pt is to have labs done as appropriate to monitor medication levels and is to report if they start to feel as if their heart rate is becoming uncontrolled.Recent Elevated Digoxin level - recommneded pt to have digoxin level today. Hypertension - well controlled - continue with current medications, continue with no added salt diet. Pt has been encouraged to exercise daily.The pt has been advised to call the office if there are any acute concerns about change in blood pressure readings at home. 05/15/2013 Appointment: Karma Bahena WPtel: [address] [facility] [address] Other 05/15/2013 Patient Education: Patient Medication Summary Completed 05/15/2013 Patient Education: Hypertension Completed 05/15/2013 Visit Plan: Hypertension - well controlled - continue with current medications, continue with no added salt diet. Pt has been encouraged to exercise daily.The pt has been advised to call the office if there are any acute concerns about change in blood pressure readings at home. Atrial Fibrillation - pt on chronic anticoagulation and is currently rate controlled. The pt is to have labs done as appropriate to monitor medication levels and is to report if they start to feel as if their heart rate is becoming uncontrolled.Concern for her dizziness potentially being due to Afib - check an event monitor, results to be sent to cardiology.Flu shot today. 04/23/2013 Appointment: Karma Bahena WPtel: 101[address] [facility] [address] [place] Other 04/23/2013 Patient Education: Patient Medication [...] this regimen. 03/21/2013 Appointment: Laura Colin WPtel: [address] [place], [place] [phone] Follow up 03/21/2013 Patient Education: Patient Medication Summary Completed 03/21/2013 Visit Plan: Hypertension - well controlled - continue with current medications, continue with no added salt diet. Pt has been encouraged to exercise daily.The pt has been advised to call the [...] becoming uncontrolled. 01/16/2013 Appointment: Karma Bahena WPtel: [address] [place], [place] [phone] Follow up 01/16/2013 Patient Education: Patient Medication Summary Completed 01/16/2013 Patient Education: Hypertension Completed 01/16/2013 Visit Plan: Wound Instructions - Pt was instruced to keep the wound clean, wash with antibacterial soap, use triple antibiotic ointment, call if redness, pustular drainage, or any other acute conerns. 12/19/2012 Appointment: Karma Bahena WPtel: [address] [place], [place] [phone] Other 12/19/2012 Patient Education: Patient Medication Summary Completed 12/19/2012 Patient Education: Patient Medication Summary Completed 12/17/2012 Visit Plan: Cellulitis - improved- monitor symptoms - need to check handon Monday morning. 12/14/2012 Appointment: Karma Bahena WPtel: [address] [place], [place] [id number] Follow up 12/14/2012 Patient Education: Patient Medication Summary Completed 12/14/2012 Visit Plan: Cellulitis - improved- monitor symptoms - need to check handon Monday morning. 12/12/2012 Appointment: Karma Bahena WPtel: [address] [place], [place] [phone] Work-in 12/12/2012 Patient Education: Patient Medication Summary [...] discharge. 12/10/2012 Appointment: Karma Bahena WPtel: [facility]5 [facility] [address] Other 12/10/2012 Patient Education: Patient Medication Summary Completed 12/10/2012 Visit Plan: Elevated digoxin level - pt was recommended to have her digoxin rechecked in 2 weeks, and to decrease her digoxin dose to one pill daily.Inflammatory arthritis - recommended to check for gout [...] becoming uncontrolled. 10/30/2012 Appointment: Karma Bahena WPtel: [address] [place], [place] [phone] Follow up 10/30/2012 Patient Education: Patient Medication Summary Completed 10/30/2012 Appointment: Laura Colin WPtel: [address] [place], [place] [phone] Lab Draw 09/13/2012 Patient Education: Patient Medication Summary Completed 09/13/2012 Visit Plan: Hypertension - well controlled - continue with current medications, continue with no added salt diet. Pt has been encouraged to exercise daily.The pt has been advised to call the [...] 3.5. 08/08/2012 Appointment: Karma Bahena [facility]Ptel[facility] Other 08/08/2012 Patient Education: Patient Medication Summary Completed 08/08/2012 Patient Education: Hypertension Completed 08/08/2012 Visit Plan: Atrial Fibrillation - pt on chronic anticoagulation and is currently rate controlled. The pt is to have labs done as appropriate to monitor medication levels and is to report if they start to feel as if their heart rate is becoming uncontrolled.Hypertension - well controlled - continue with current medications, continue with no added salt diet. Pt has been encouraged to exercise daily.The pt has been advised to call the [...] regimen. 07/11/2012 Appointment: Karma Bahena WPtel: [facility] swelling, leg edema Other 07/11/2012 Patient Education: [...] vaginally. 05/08/2012 Appointment: Karma Bahena WPtel: [facility] Follow up 05/08/2012 Patient Education: Patient Medication [...] diet. Pt has been encouraged to exercise daily.The pt has been advised to call the office if there are any acute concerns about change in blood pressure readings at home. Chronic Anticoagulant use - Pt has been counseled about the anticoagulant, need for serial monitoring, and need for the pt to alert the physician as to any new bruising, or acute bleeding. Theraputic goal for INR is between 2.0 and 3.5.Small bowel resection - pt to continue with slowly advancing diet, attempting to increase protein to gain back the weight that was lost during hospitalization. 04/18/2012 Appointment: Karma Bahena WPtel: [facility]5 [facility] [address] Follow up 04/18/2012 Patient Education: Patient Medication Summary Completed 04/18/2012 Patient Education: High Blood Pressure: Essential Hypertension Completed 04/18/2012 Appointment: Karma Bahena WPtel: [address] [place], [place] [phone] [place] Follow up 04/09/2012 Appointment: Karma Bahena WPtel: [facility] [place] Lab Draw 04/04/2012 Appointment: Laura Colin WPtel: [phone] [place] Lab Draw 03/19/2012 Visit Plan: Abdominal [...] acute hospital stay for the patient's health benefit.I suspect a small bowel obstruction, pt admitted, ct scan and consult by surgeon of pt choice, pt on pr adaxa, will have to start heparin protocol. 03/13/2012 [...] Hypertension Completed 03/13/2012 Appointment: Karma Bahena WPtel: [address] [facility] [address] Lab Draw 03/08/2012 Patient Education: Patient Medication Summary Completed 03/08/2012 Visit Plan: Atrial Fibrillation - pt on chronic anticoagulation and is currently rate controlled. The pt is to have labs done as appropriate to monitor medication levels and is to report if they start to feel as if their heart rate is becoming uncontrolled.Pt is to continue with digoxin and pradaxa. Hypertension - well controlled - continue with current medications, continue with no added salt diet. Pt has been encouraged to exercise daily.The pt has been advised to call the office if there are any acute concerns about change in blood pressure readings at home.Ynes- recommended cardiac rehab. 02/20/2012 Appointment: Karma Bahena WPtel: [facility] Other 02/20/2012 Patient Education: Patient Medication Summary Completed 02/20/2012 Visit Plan: Hematuria-positive blood on UA today-plan to culture-discussed natural and expected course of this diagnosis and to alert me if symptoms do not follow expected course, or if any worse. Avoid tub baths, restrictive underwear, etc. Patient verbalized understanding of plan. Yeast infectin-RX for diflucan sent to patient's pharmacy Atrial Fibrillation - pt on chronic anticoagulation and is c urrently rate controlled. The pt is to have labs done as appropriate to monitor medication levels and is to report if they start to feel as if their heart rate is becoming uncontrolled. 02/13/2012 Appointment: Laura Colin WPtel: [address] [phone] Other 02/13/2012 Patient Education: Patient Medication Summary Completed 02/13/2012 Appointment: Karma Bahena WPtel: [facility] [place] Lab Draw 02/07/2012 Visit Plan: Atrial Fibrillation - pt on chronic anticoagulation and is currently rate controlled. The pt is to have labs done as appropriate to monitor medication levels and is to report if they start to feel as if their heart rate is becoming uncontrolled.Pradaxa is too expensive, therefore, pt is wanting [...] diet. Pt has been encouraged to exercise daily.The pt has been advised to call the office if there are any acute concerns about change in blood pressure readings at h ome.Urge incontinence - recommended pt to keep on the vesicare as it does not cross the blood brain barrier and it is working fairly well for Byron, therefore, would not change the medication. 02/01/2012 Appointment: Karma Bahena WPtel: [facility] Other 02/01/2012 Patient Education: Patient Medication Summary Completed 02/01/2012 Patient Education: High Blood Pressure: Essential Hypertension Completed 02/01/2012 Appointment: Karma Bahena WPtel: [facility] [place] Lab Draw 01/17/2012 Visit Plan: Atrial Fibrillation - pt on chronic anticoagulation and is currently rate controlled. The pt is to have labs done as appropriate to monitor medication levels and is to report if they start to feel as if their heart rate is becoming uncontrolled.DIGOXIN LEVEL FOR 01-17-12 and then on 02/07/12, then blood work again on March 08, april 05, then again in June- this is the start of the every three month digoxin levels. Hypertension - well controlled - continue with current medications, continue with no added salt diet. Pt has been encouraged to exercise daily.The pt has been advised to call the office if there are any acute concerns about change in blood pressure readings at home. 2012 Appointment: Karma Bahena WPtel: [address] [facility] [address] Other 2012 Patient Education: Patient Medication Summary Completed 2012 Patient Education: High Blood Pressure: Essential Hypertension Completed 2012 Appointment: Karma Bahena WPtel: [facility]4 [place] [id number] Follow up 12/20/2011 Visit Plan: Dicyclomine up to every 6 hours, and take one pill before the meals that you know are problematic.Continue with omeprazole, take in the evening and take the sample of the dexilant in the morning as well for the next 10 days.Pt has been instructed to call the office on Monday to let us know how she is feeling.If the elevated blood pressure or abdominal pain recurrs, she is to go to the emergency room. 12/01/2011 Appointment: Karma Bahena WPtel: [facility]3 [facility] [address] Other 12/01/2011 Patient Education: Patient Medication Summary [...] the office next week for practicioner to review.The pt is to call for acute concerns. [...] infection resolves. 11/23/2011 Appointment: Laura Colin WPtel: [address] [place], [place] [phone] [place] Other 11/23/2011 Patient Education: Patient Medication Summary Completed 11/23/2011 Patient Education: High Blood Pressure: Essential Hypertension Completed 11/23/2011 Visit Plan: Cerumen Impaction - The impacted cerumen was removed with the use of either ear currette alone or in combination with ear curette and water pick. The patient tolerated the procedure without incident and had improvement in hearing 10/17/2011 Appointment: Laura Colin WPtel: [address] [place], [place] [phone] [place] Other 10/17/2011 Patient Education: Patient Medication Summary Completed 10/17/2011 Visit Plan: Hypertension - well controlled - continue with current medications, continue with no added salt diet. Pt has been encouraged to exercise daily.The pt has been advised to call the office if there are any acute concerns about change in blood pressure readings at home.Stop the magnesium and potassium Pt to start walking and riding her recumbant bikeImpacted Cerumen - not amenable to removal today - Pt advised as follows:Sweet oil 1mL in the left ear nightly x 11-14 days. then return to clinic to have the wax removed by irrigation. 10/03/2011 Appointment: Karma Bahena WPtel: [address] [facility] [address] Other 10/03/2011 Patient Education: Patient Medication Summary Completed 10/03/2011 Patient Education: High Blood Pressure: Essential Hypertension Completed 10/03/2011 Visit Plan: Hypertension - well controlled - continue with current medications, continue with no added salt diet. Pt has been encouraged to exercise daily.The pt has been advised to call the office if there are any acute concerns about change in blood pressure readings at home.DUE TO ITCHING, WE WILL HAVE BYRON STOP HER LISINOPRIL/HCTZ COMBINATION PILL AND ONLY USE A NEW SCRIPT FOR LISINOPRIL.. Hopefully, the pruritis will improve off of the combination pill.. Pruritis- pt to look at home for evidence of bedbugs, call if there is evidence. 08/08/2011 Appointment: Karma Bahena WPtel: [facility]0 [facility] [address] Other 08/08/2011 Patient Education: Patient Medication Summary Completed 08/08/2011 Patient Education: High Blood Pressure: Essential Hypertension Completed 08/08/2011 Visit Plan: Muscle cramps - the cramps are a little better, continue with the Diltiazem and it is okay to use the over the counter supplement with quinine - but use it sparingly.For the rash, use the prescription the down filler prescribed for the itching , call if the rash is not improved.Torticollis - continue with physical therapy, call if the neck muscles do not continue to show improvement. 05/09/2011 Appointment: Karma Bahena WPtel: [facility]5 [facility] [address] Other 05/09/2011 Patient Education: Patient Medication Summary Completed 05/09/2011 Patient Education: Muscle Cramps from Exercise Completed 05/09/2011 Patient Education: Restless Legs Syndrome Completed 05/09/2011 Visit Plan: Leg cramps - uncontrolled with the use of the mirapex - recommend alternative treatment with DILTIAZEM 90 MG TABLET 1/2 A PILL BEFORE BED. Pt has been instructed to stop the mirapex.CHECK YOUR BLOOD PRESSURE IN THE MORNINGS, OR IF YOU WAKE UP IN THE MIDDLE OF THE NIGHT AND FEEL DIZZY OR LIGHT HEADED, CHECK YOUR BLOOD PRESSURE.Weight Improved - - you have gained 2 pounds, continue with the extra protein in your diet and continue with water aerobics. 03/29/2011 Appointment: Karma Bahena WPtel: [address] [place], [place] [phone] Other 03/29/2011 Patient Education: Patient Medication Summary Completed 03/29/2011 Appointment: Karma Bahena WPtel: [address] [place] [address] Other 03/17/2011 Visit Plan: UTI - UA negative.Urge incontinence- restart on the vesicare- at 5 mg. Continue to avoid caffinated foods/fluids.Peripheral Neuropathy - per solid waste division supervisor report - Continue with the metanex.Loss of weight - WEIGHT CHECK IN 2 WKS. Palpitations- likely stress induced. If the symptoms worsen, call the office. 03/15/2011 Appointment: Karma Bahena WPtel: [address] [place] [address] Follow up 03/15/2011 Patient Education: Patient Medication Summary Completed 03/15/2011 Visit Plan: Rocephin 500mg IM 03/04/2011 Patient Education: Patient Medication Summary Completed 03/04/2011 Referral: Dr Jeff Referral Appointment Requested Referral: Corby Collins Referral Appointment Requested Instructions Comment increase the lisinopril to 20mg twice daily [...] pressure or heart rate becoming uncontrolled. . Hypertension - well controlled [...] will consult Dr. Collins. . Cellulitis - continue with oral antibiotics as previously directed, return to clinic as previously directed, call for acute change in symptoms, worsening redness, warmth, discharge. . Leg cramps - uncontrolled with the [...] need to check handon Jeremiah morning. . Atrial Fibrillation - pt on chronic anticoagulation and is currently rate controlled. The pt is to have labs done as appropriate to monitor medication levels and is to report if they start to feel as if their heart rate is becoming uncontrolled. Digoxin and Coumadin doses are good for control of anticoagulation and heart rate. Osteoarthritis - send pt [facility] for strengthening and [...] For the rash, use the prescription the down filler prescribed for the itching , call if the rash is not improved. Torticollis - continue with physical therapy, call if the neck muscles do not continue to show improvement. . Gout Attack - Pt complains of [...] avoid caffinated foods/fluids. Peripheral Neuropathy - per solid waste division supervisor report - Continue with the metanex. Loss [...] paper to help decrease irritation of urethra. change the thyroid to 1/2 pill on [...] symptoms - referral to Dr. Collins. . Abdominal pain and rectal itching - recommended pt to use betamethasone on vaginal/rectal region, monitor symptoms call if not improving. Continue with beano and simethicone . Cellulitis - improved- monitor symptoms - need to check handon Monday morning. . Cerumen Impaction - The impacted cerumen was removed with the use of either ear currette alone or in combination with ear curette and water pick. The patient tolerated the procedure without incident and had improvement in hearing . Cerumen Impaction - The impacted cerumen [...] change in symptoms, worsening redness, warmth, discharge. continue with carafate - use as much [...] at this time. . Rocephin 500mg IM . Atrial Fibrillation [...] in blood pressure readings at home. . VIX-wrdds-cta zpack-call if symptoms do not resolve or [...] Byron, therefore, would not change the medication. pt is to stop her omeprazole and [...] and will be called with report. . Wound Instructions - Pt was instruced [...] INR is between 2.0 and 3.5. . 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 Bowel Regimen stool softener - four at [...] to go to the emergency room. . Hematuria - check UA. Referral to [...] if their heart rate is becoming uncontrolled. switch to tatiana . URI/ALLERGIES- recommended pt [...] if their heart rate is becoming uncontrolled. IF HEART RATE UNDER 60 CONSISTENTLY TAKE [...] ureter removed in [place]- doing well Increase miralax to full dose daily. Constipation [...] if symptoms not improved on this regimen. doctor will refer to Dr. Joel Collins - for nonsurgical intervention for potential electrical stimulation/training of pelvic floor muscles - for strengthening - can start on the treatment when you get back from [place] - will also ask him about doing [...] acute concerns. Bruising-left leg-no injuury-on coumadin-check PT/INR If using nasal spray, instructions as follows: [...] exposure,and dyspnea on exertion - will ask [place] Patient do an overnight oxygen study on [...] the insertion of the medication vaginally. . Hypertension - well controlled - continue [...] daily use of bactroban - monitor symptoms. Byron is to increase the lisinopril to [...]
--- OUTSIDE RECORDS SUMMARY | 2018-12-10 18:19 | XMS REPORT | CCD ---
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 Unknown Has never used illegal drugs 03/15/2011 Allergies, Adverse Reactions, Alerts Substance Reaction Codes Entered Date Inactivated Date Status AUGMENTIN diarrhea RxNorm: 423888 2016 No Inactive Date Active Past Medical [...] 706.2 ICD-10: L72.0 Active 02/01/2016 Unknown Other jail (current) drug therapy ICD-9: V58.69 ICD-10: Z79.899 [...] ICD-9: 706.2 ICD-10: L72.0 02/01/2016 Active Other technician terminal and repeater (current) drug therapy ICD-9: V58.69 ICD-10: Z79.899 [...] Fill Instructions lisinopril 20 mg tablet RxNorm: 272259 1 TABLET(S) PO DAILY 01/02/2017 05/31/2017 Active Zithromax Z-Claudio 250 mg tablet RxNorm: 105253 1 Tablet(s) PO UD 11/29/2016 12/03/2016 Inactive ZPACK Keflex 500 mg capsule RxNorm: 868525 1 Capsule(s) PO TID 11/23/2016 12/02/2016 Inactive guaifenesin 400 mg tablet RxNorm: 790058 1 Tablet(s) PO Q6 as needed 11/23/2016 11/27/2016 Inactive omeprazole 40 mg capsule,delayed release RxNorm: 925195 1 Capsule(s) PO QPM 11/02/2016 04/30/2017 Active digoxin 125 mcg tablet RxNorm: 328449 1 TABLET(S) PO DAILY 10/27/2016 07/23/2017 Active cyclobenzaprine 5 mg tablet RxNorm: 536877 1/2 Tablet(s) PO Q8 PRN 10/25/2016 No Stop Date Active prn muscle spasms Augmentin 500 mg-125 mg tablet RxNorm: 889154 1 Tablet(s) PO BID 10/24/2016 11/02/2016 Inactive spironolactone 25 mg tablet RxNorm: 669675 1 Tablet(s) PO daily 07/27/2016 02/21/2017 Active Lasix 20 mg tablet RxNorm: 814753 Tablet(s) PRN one to two times a week if needed 07/27/2016 No Stop Date Active Patient requests 90 days supply Diflucan 150 mg tablet RxNorm: 791109 1 Tablet(s) PO daily 07/27/2016 08/02/2016 Inactive lisinopril 20 mg tablet RxNorm: 320823 1 Tablet(s) PO daily 07/12/2016 01/01/2017 Inactive Lasix 20 mg tablet RxNorm: 869168 1 TABLET(S) PO EVERY OTHER DAY EVERY OTHER DAY 06/10/2016 07/26/2016 Inactive Patient requests 90 days supply potassium chloride ER 10 mEq capsule,extended release RxNorm: 105139 1 CAPSULE(S) PO EVERY OTHER DAY 06/10/2016 07/26/2016 Inactive Patient requests 90 days supply potassium chloride ER 10 mEq capsule,extended release RxNorm: 696955 1 Capsule(s) PO every other day 06/09/2016 06/09/2016 Inactive Lasix 20 mg tablet RxNorm: 117434 1 Tablet(s) PO every other day every other day 06/09/2016 06/09/2016 Inactive levothyroxine 88 mcg tablet RxNorm: 967262 1 Tablet(s) PO daily 05/11/2016 11/06/2016 Inactive Premarin 0.625 mg/gram vaginal cream RxNorm: 205193 1/2 Gram(s) VAG TIW 03/24/2016 03/18/2017 Active metoprolol succinate ER 50 mg tablet,extended release 24 hr RxNorm: 093374 1 Tablet(s) PO daily 03/24/2016 03/18/2017 Active pantoprazole 40 mg tablet,delayed release RxNorm: 442266 1 Tablet(s) PO daily 02/08/2016 11/01/2016 Inactive betamethasone dipropionate 0.05 % topical ointment RxNorm: 038686 1 Application TOP TID use topically on the rectal tissue three times daily x 1 week then as needed 02/02/2016 No Stop Date Active pantoprazole 40 mg tablet,delayed release RxNorm: 772915 1 Tablet(s) PO daily 2016 02/07/2016 Inactive alprazolam 0.25 mg tablet RxNorm: 473020 1 Tablet(s) PO Q6 as needed 12/04/2015 No Stop Date Active Vesicare 10 mg tablet RxNorm: 158670 1 Tablet(s) PO every other day 11/03/2015 No Stop Date Active alprazolam 0.25 mg tablet RxNorm: 029255 1 Tablet(s) PO Q6 as needed 11/03/2015 12/03/2015 Inactive Premarin 0.625 mg/gram vaginal cream RxNorm: 550806 1/2 Gram(s) VAG TIW 11/03/2015 03/23/2016 Inactive levothyroxine 88 mcg tablet RxNorm: 208694 1 Tablet(s) PO daily 11/03/2015 05/10/2016 Inactive Diflucan 150 mg tablet RxNorm: 932972 1 Tablet(s) PO daily 10/19/2015 10/25/2015 Inactive cetirizine 10 mg chewable tablet RxNorm: 8157455 1 Tablet(s) PO daily 10/13/2015 11/11/2015 Inactive cetirizine 10 mg capsule RxNorm: 2951616 1 Capsule(s) PO daily 10/13/2015 11/11/2015 Inactive Vesicare 10 mg tablet RxNorm: 122732 1/2 TABLET(S) PO BID 09/21/2015 11/02/2015 Inactive betamethasone dipropionate 0.05 % topical ointment RxNorm: 121626 1 Application TOP TID use topically on the rectal tissue three times daily x 1 week then as needed 09/15/2015 02/01/2016 Inactive lisinopril 20 mg tablet RxNorm: 955083 1 Tablet(s) PO daily 09/01/2015 07/11/2016 Inactive digoxin 125 mcg tablet RxNorm: 759924 1 Tablet(s) PO daily 09/01/2015 08/25/2016 Inactive Augmentin 500 mg-125 mg tablet RxNorm: 531459 1 Tablet(s) PO TID 05/26/2015 06/04/2015 Inactive Pyridium 200 mg tablet RxNorm: 7668238 1 Tablet(s) PO TID 05/26/2015 05/27/2015 Inactive levothyroxine 88 mcg tablet RxNorm: 135120 1 Tablet(s) PO daily except 1/2 pill on monday and 05/07/2015 11/02/2015 Inactive digoxin 125 mcg tablet RxNorm: 341699 1 Tablet(s) PO daily 05/07/2015 08/31/2015 Inactive lisinopril 20 mg tablet RxNorm: 090530 1 TABLET(S) PO BID 04/13/2015 09/01/2015 Inactive Coumadin 1 mg tablet RxNorm: 290541 1 TABLET(S) PO DAILY 03/31/2015 08/31/2015 Inactive Coumadin 2 mg tablet RxNorm: 476827 4MG IN AM AND 1MG AT NIGHT TABLET(S) PO DAILY DIRECTED. 03/31/2015 08/31/2015 Inactive levothyroxine 88 mcg tablet RxNorm: 696567 1 Tablet(s) PO daily 03/23/2015 05/06/2015 Inactive alprazolam 0.25 mg tablet RxNorm: 750294 Tablet(s) PO 03/23/2015 04/06/2015 Inactive levothyroxine 88 mcg tablet RxNorm: 391696 1 Tablet(s) PO daily 01/28/2015 03/22/2015 Inactive levothyroxine 88 mcg tablet RxNorm: 120439 1 Tablet(s) PO daily 01/28/2015 01/27/2015 Inactive diltiazem ER 120 mg capsule,extended release RxNorm: 509456 1 Capsule(s) PO BID patient would like 4 months at a time 01/06/2015 09/28/2015 Inactive digoxin 125 mcg tablet RxNorm: 557876 Tablet(s) 1 TABLET(S) PO DAILY 12/24/2014 12/23/2014 Inactive pt will be paying [employer] (On $4 list)Patient requests 90 days supply digoxin 125 mcg tablet RxNorm: 357381 Tablet(s) 1 TABLET(S) PO DAILY M W F Sat and 2 tabs on T TH 12/24/2014 05/06/2015 Inactive pt will be paying [employer]oma[employer] (On $4 list)Patient requests 90 days supply dicyclomine 20 mg tablet RxNorm: 672463 1 Tablet(s) PO daily 11/17/2014 08/31/2015 Inactive one ac dinner and up to tid prn levothyroxine 88 mcg tablet RxNorm: 852968 1 Tablet(s) PO daily 11/03/2014 01/27/2015 Inactive Premarin 0.625 mg/gram vaginal cream RxNorm: 585919 1 APPLICATION VAG 1 APPLICATOR PER VAGINA 3 TIMES PER WEEK 11/03/2014 07/30/2015 Inactive digoxin 125 mcg tablet RxNorm: 328760 1 TABLET(S) PO DAILY 09/29/2014 12/23/2014 Inactive pt will be paying [employer]oma[employer] (On $4 list)Patient requests 90 days supply digoxin 125 mcg tablet RxNorm: 302844 1 TABLET(S) PO DAILY 07/11/2014 04/06/2015 Inactive Vesicare 10 mg tablet RxNorm: 889463 1/2 Tablet(s) PO BID 05/20/2014 05/14/2015 Inactive Levaquin 500 mg tablet RxNorm: 604917 1 Tablet(s) PO daily 05/06/2014 05/08/2014 Inactive take probiotic BID while on ABT Levaquin 500 mg tablet RxNorm: 488749 1 Tablet(s) PO daily 05/02/2014 05/05/2014 Inactive take probiotic BID while on ABT diltiazem ER 120 mg capsule,extended release RxNorm: 876799 1 Capsule(s) PO BID patient would like 4 months at a time 04/29/2014 2015 Inactive Vesicare 10 mg tablet RxNorm: 961940 1/2 Tablet(s) PO BID 04/29/2014 05/19/2014 Inactive lisinopril 20 mg tablet RxNorm: 411427 1 Tablet(s) PO BID 03/20/2014 03/14/2015 Inactive diltiazem 90 mg tablet RxNorm: 093431 1/2 TABLET(S) PO QPM 03/04/2014 04/28/2014 Inactive also 180 q am diltiazem ER 120 mg capsule,extended release RxNorm: 423716 1 Capsule(s) PO daily patient would like 4 months at a time 01/29/2014 04/28/2014 Inactive Vesicare 10 mg tablet RxNorm: 973035 1 Tablet(s) PO QHS 01/14/2014 04/28/2014 Inactive Coumadin 2 mg tablet RxNorm: 199799 4mg in AM and 1mg at night Tablet(s) PO daily as directed. 12/25/2013 03/30/2015 Inactive Metanx 3 mg-35 mg-2 mg tablet RxNorm: 1 Tablet(s) PO daily 12/25/2013 11/02/2015 Inactive digoxin 125 mcg tablet RxNorm: 729800 1 Tablet(s) PO daily 12/25/2013 09/28/2014 Inactive pt will be paying [employer] (On $4 list) Coumadin 2 mg tablet RxNorm: 937573 7.5 wed 5mg other Tablet(s) PO as directed. 12/03/2013 12/24/2013 Inactive omeprazole 20 mg tablet,delayed release RxNorm: 089710 1 Tablet(s) PO BID 11/27/2013 04/28/2014 Inactive Coumadin 2 mg tablet RxNorm: 519132 5 mg daily Tablet(s) PO as directed. 11/26/2013 12/02/2013 Inactive 5 mg daily Xanax 0.25 mg tablet RxNorm: 121001 1 Tablet(s) PO Q6 PRN 11/11/2013 12/25/2013 Inactive alprazolam 0.25 mg tablet RxNorm: 468569 tablet oral 11/11/2013 03/22/2015 Inactive sucralfate 1 gram tablet RxNorm: 722959 1 Tablet(s) PO AC & HS 11/04/2013 11/03/2013 Inactive sucralfate 1 gram tablet RxNorm: 653112 1 Tablet(s) PO AC & HS 11/04/2013 01/02/2014 Inactive Synthroid 100 mcg tablet RxNorm: 161486 1 Tablet(s) PO daily 10/31/2013 10/25/2014 Inactive Synthroid 100 mcg tablet RxNorm: 221925 1 Tablet(s) PO daily 09/30/2013 10/29/2013 Inactive Vesicare 10 mg tablet RxNorm: 870615 1 Tablet(s) PO QHS 09/30/2013 01/13/2014 Inactive Lotemax 0.5 % eye ointment RxNorm: 7057306 ointment opht 09/06/2013 12/10/2013 Inactive levothyroxine 100 mcg tablet RxNorm: 520954 tablet oral 09/05/2013 11/02/2014 Inactive Synthroid 100 mcg tablet RxNorm: 056039 1 Tablet(s) PO daily 09/05/2013 09/29/2013 Inactive Prolia 60 mg/mL Sub-Q Syringe RxNorm: 328291 1 Milliliter(s) SQ 06/25/2013 11/02/2015 Inactive dicyclomine 20 mg tablet RxNorm: 965885 1 Tablet(s) PO daily 06/24/2013 06/18/2014 Inactive one ac dinner and up to tid prn omeprazole 20 mg tablet,delayed release RxNorm: 761046 1 Tablet(s) PO BID 06/24/2013 11/26/2013 Inactive Cipro 500 mg tablet RxNorm: 286847 1 Tablet(s) PO BID 06/20/2013 06/26/2013 Inactive diltiazem ER 120 mg capsule,extended release RxNorm: 246501 1 Capsule(s) PO daily patient would like 4 months at a time 06/03/2013 01/28/2014 Inactive Coumadin 2 mg tablet RxNorm: 096615 as directed Tablet(s) PO as directed. 05/29/2013 11/25/2013 Inactive 5 mg daily Synthroid 88 mcg tablet RxNorm: 537089 1 Tablet(s) PO daily 04/24/2013 04/23/2013 Inactive Synthroid 88 mcg tablet RxNorm: 060732 1 Tablet(s) PO daily 04/24/2013 07/28/2013 Inactive Premarin 0.625 mg/gram vaginal cream RxNorm: 325223 1 Application VAG 1 applicator per vagina 3 times per week 04/23/2013 04/17/2014 Inactive Influenza Virus Vaccine 0.5 mL RxNorm: IM 04/23/2013 04/23/2013 Inactive digoxin 125 mcg tablet RxNorm: 969201 1 Tablet(s) PO daily 02/20/2013 04/20/2013 Inactive pt will be paying [employer] (On $4 list) Digox 125 mcg tablet RxNorm: 4629581 tablet oral 02/13/2013 03/20/2014 Inactive digoxin 125 mcg tablet RxNorm: 860899 1 Tablet(s) PO daily 02/13/2013 02/19/2013 Inactive diltiazem 90 mg tablet RxNorm: 523728 1/2 Tablet(s) PO QPM 02/13/2013 02/07/2014 Inactive also 180 q am Levoxyl 75 mcg tablet RxNorm: 431970 1 Tablet(s) PO 01/16/2013 04/23/2013 Inactive Coumadin 2 mg tablet RxNorm: 557416 6mg daily except 3mg on wed and fri Tablet(s) PO 01/15/2013 05/28/2013 Inactive 5 mg daily Coumadin 2 mg tablet RxNorm: 056157 6mg daily Tablet(s) PO 12/21/2012 01/14/2013 Inactive 5 mg daily silver sulfadiazine 1 % Topical Cream RxNorm: 551501 TOP apply to affected area with each dressing change 12/19/2012 12/25/2013 Inactive cephalexin 500 mg tablet RxNorm: 374424 1 Tablet(s) PO TID 12/11/2012 12/17/2012 Inactive digoxin 125 mcg tablet RxNorm: 4571185 1 Tablet(s) PO daily 10/30/2012 02/12/2013 Inactive digoxin 125 mcg tablet RxNorm: 4262086 2 tab tue thurs one other days Tablet(s) PO daily 10/23/2012 10/29/2012 Inactive lisinopril 10 mg tablet RxNorm: 724939 1 Tablet(s) PO daily 10/17/2012 08/14/2013 Inactive Cipro 500 mg tablet RxNorm: 813805 1 Tablet(s) PO BID 09/13/2012 09/19/2012 Inactive Coumadin 1 mg tablet RxNorm: 448001 1 Tablet(s) PO daily 09/03/2012 09/02/2012 Inactive Coumadin 1 mg tablet RxNorm: 077422 1 Tablet(s) PO daily 09/03/2012 12/21/2012 Inactive Coumadin 2 mg tablet RxNorm: 963540 Tablet(s) PO 07/25/2012 12/20/2012 Inactive 5 mg daily digoxin 125 mcg tablet RxNorm: 7155228 1 Tablet(s) PO daily 06/28/2012 10/22/2012 Inactive Coumadin 2 mg tablet RxNorm: 751131 Tablet(s) PO 06/27/2012 07/24/2012 Inactive 5mg daily except 4mg on monday Coumadin 2 mg tablet RxNorm: 385340 Tablet(s) PO 06/19/2012 06/26/2012 Inactive 5mg tue wed thur sat sun4mg mon frid(has 2mg and 1 mg tab) digoxin 125 mcg tablet RxNorm: 8580231 1 Tablet(s) PO daily 05/29/2012 06/27/2012 Inactive Coumadin 2 mg tablet RxNorm: 692870 Tablet(s) PO 05/15/2012 06/18/2012 Inactive 5mg tue thur sat sun4mg mon mon frid(has 2mg and 1 mg tab) Coumadin 2 mg tablet RxNorm: 636772 Tablet(s) PO 04/25/2012 05/14/2012 Inactive 5mg tue thru sat4mg mon sun(has 2mg and 1 mg tab) Metanx 3 mg-35 mg-2 mg tablet RxNorm: 1 Tablet(s) PO BID 04/18/2012 12/24/2013 Inactive dicyclomine 20 mg tablet RxNorm: 187920 1 Tablet(s) PO 04/18/2012 06/23/2013 Inactive one ac dinner and up to tid prn digoxin 125 mcg tablet RxNorm: 0930004 Tablet(s) PO daily except .25 on Tuesdays and 04/09/2012 05/28/2012 Inactive omeprazole 20 mg tablet,delayed release RxNorm: 108827 1 Tablet(s) PO BID 04/09/2012 04/03/2013 Inactive digoxin 125 mcg tablet RxNorm: 7506640 1 Tablet(s) PO UD daily except none on Tuesdays and 03/13/2012 04/08/2012 Inactive Premarin 0.625 mg/gram Vaginal Cream RxNorm: 368116 1 Application VAG 1 applicator per vagina 3 times per week 02/20/2012 02/13/2013 Inactive omeprazole 20 mg tablet,delayed release RxNorm: 534780 1 Tablet(s) PO BID 02/13/2012 04/08/2012 Inactive Vesicare 10 mg tablet RxNorm: 625333 1 Tablet(s) PO QHS 02/13/2012 02/06/2013 Inactive Diflucan 150 mg tablet RxNorm: 536691 1 Tablet(s) PO daily 02/13/2012 02/19/2012 Inactive omeprazole 20 mg tablet,delayed release RxNorm: 269741 1 Tablet(s) PO BID 01/06/2012 02/12/2012 Inactive Calcium 600 + D(3) 600 mg (1,500)-200 unit Tab RxNorm: 289364 2 Tablet(s) PO BID 01/06/2012 08/31/2015 Inactive diltiazem 90 mg tablet RxNorm: 139530 1/2 Tablet(s) PO QPM 12/26/2011 02/12/2013 Inactive also 180 q am diltiazem ER 180 mg Cap RxNorm: 126560 1 Capsule(s) PO QAM 12/26/2011 04/08/2012 Inactive 45mg q hs Flagyl 500 mg Tab RxNorm: 215099 1 Tablet(s) PO BID 12/14/2011 12/20/2011 Inactive dicyclomine 10 mg Cap RxNorm: 221123 1 Capsule(s) PO AC & HS 12/01/2011 12/25/2011 Inactive Levaquin 500 mg Tab RxNorm: 117008 1 Tablet(s) PO daily 11/23/2011 11/29/2011 Inactive Rocephin 500 mg Solution for Injection RxNorm: 984262 Inj 11/23/2011 11/23/2011 Inactive acyclovir 400 mg Tab RxNorm: 138183 1 Tablet(s) PO QID 11/10/2011 11/19/2011 Inactive acyclovir 400 mg Tab RxNorm: 182255 1 Tablet(s) PO QID 11/10/2011 11/09/2011 Inactive lisinopril 20 mg Tab RxNorm: 353914 1 Tablet(s) PO daily 10/03/2011 11/27/2011 Inactive lisinopril 20 mg Tab RxNorm: 774373 1 Tablet(s) PO daily 08/08/2011 10/02/2011 Inactive Reclast 5 mg/100 mL IV RxNorm: 617297 Milliliter(s) IV Yearly 06/08/2011 01/16/[address] Hansen manages Rocephin 500 mg Solution for Injection RxNorm: 575276 1 Milliliter(s) Inj 03/04/2011 08/08/2011 Inactive Ceftin 500 mg Tab RxNorm: 193520 1 Tablet(s) PO BID 03/04/2011 08/08/2011 Inactive Vitamin D3 1,000 unit tablet RxNorm: 540813 2 Tablet(s) PO daily No Start Date Active Carafate 100 mg/mL oral suspension RxNorm: 303335 2 Teaspoon(s) PO as needed with reflux symptoms No Start Date Active Stool Softener 100 mg tablet RxNorm: 7140174 2 Tablet(s) PO QHS No Start Date Active Beano tablet RxNorm: 2-3 Tablet(s) PO as needed No Start Date Active Probiotic Pearls 15 mg (1 billion cell) capsule,delayed release RxNorm: 1 Capsule(s) PO daily No Start Date Active Miralax 17 gram oral powder packet RxNorm: 659230 1/2 packet PO QHS No Start Date Active Eliquis 2.5 mg tablet RxNorm: 6479154 1 Tablet(s) PO BID No Start Date Active multivitamin Tab RxNorm: 1 Tablet(s) PO daily No Start Date Active Tylenol Extra Strength 500 mg tablet RxNorm: 472471 2 Tablet(s) PO as needed No Start Date Active Combigan 0.2 %-0.5 % eye drops RxNorm: 241593 1 Drop(s) OPH BID No Start Date Active 1 drop twice daily left eye Lexapro 5 mg tablet RxNorm: 347808 1 Tablet(s) PO daily No Start Date Active Tatiana Allergy 180 mg tablet RxNorm: 500664 1 Tablet(s) PO daily No Start Date Active Symbicort 160 mcg-4.5 mcg/actuation HFA aerosol inhaler RxNorm: 2996041 2 Puff(s) INH BID No Start Date Active Lotemax 0.5 % eye drops,suspension RxNorm: 487257 1 Drop(s) OPH right eye BID No Start Date Active Levoxyl 50 mcg tablet RxNorm: 817991 1 Tablet(s) PO daily No Start Date 01/15/2013 Inactive lisinopril-hydrochlorothiazide 20 mg-25 mg Tab RxNorm: 502302 1 Tablet(s) PO daily No Start Date 08/07/2011 Inactive Metanx 3 mg-35 mg-2 mg tablet RxNorm: 1 Tablet(s) PO daily No Start Date 04/17/2012 Inactive diltiazem CD 120 mg capsule,extended release 24 hr RxNorm: 087609 1 Capsule(s) PO daily No Start Date 09/28/2015 Inactive lisinopril 20 mg tablet RxNorm: 203292 Tablet(s) PO No Start Date Active Lumigan 0.01 % Eye Drops RxNorm: 1872426 1 Drop(s) OPH daily Left eye No Start Date 12/10/2013 Inactive prednisolone acetate 1 % Eye Drops, Susp RxNorm: 9627575 1 Drop(s) OPH BID 1 drop right eye am and hs No Start Date 11/02/2015 Inactive Eliquis 5 mg tablet RxNorm: 5012649 1 Tablet(s) PO BID No Start Date 06/08/2016 Inactive potassium gluconate (bulk) Misc RxNorm: Miscellaneous No Start Date 12/25/2011 Inactive Calcium 600 + D(3) 600 mg (1,500)-200 unit Tab RxNorm: 875306 3 Tablet(s) PO daily No Start Date 2012 Inactive Zyrtec 10 mg tablet RxNorm: 7032110 1 Tablet(s) PO daily No Start Date 08/02/2016 Inactive Synthroid 100 mcg tablet RxNorm: 834468 1 Tablet(s) PO daily No Start Date 09/04/2013 Inactive metoprolol succinate ER 50 mg tablet,extended release 24 hr RxNorm: 093723 1 Tablet(s) PO daily No Start Date 03/23/2016 Inactive Metanx 3 mg-35 mg-2 mg tablet RxNorm: 1 Tablet(s) PO daily 2pm No Start Date 11/02/2015 Inactive Lexapro 5 mg tablet RxNorm: 085222 1 Tablet(s) PO daily No Start Date 08/18/2015 Inactive Iron (dried) oral RxNorm: 64120 oral No Start Date 11/02/2015 Inactive timolol 0.5 % Eye Drops RxNorm: 971297 1 Drop(s) OPH daily left eye No Start Date 12/18/2013 Inactive multivitamin Cap RxNorm: 1 Capsule(s) PO daily No Start Date 12/25/2011 Inactive dicyclomine 10 mg Cap RxNorm: 081613 2 Capsule(s) PO daily No Start Date 11/30/2011 Inactive silver sulfadiazine 1 % Topical Cream RxNorm: 968070 TOP apply to affected area with each dressing change No Start Date 12/18/2012 Inactive magnesium oxide 400 mg Tab RxNorm: 789301 1 Tablet(s) PO daily No Start Date 11/02/2015 Inactive Pradaxa 75 mg Cap RxNorm: 1495745 1 Capsule(s) PO BID No Start Date 04/09/2012 Inactive magnesium oxide 400 mg Tab RxNorm: 738917 2 Tablet(s) PO daily magnesium plus zinc No Start Date 12/25/2011 Inactive biotin 1000 mg RxNorm: 1 PO daily No Start Date 12/25/2011 Inactive Synthroid 50 mcg Tab RxNorm: 470463 Tablet(s) PO No Start Date 12/25/2011 Inactive diltiazem ER 180 mg Cap RxNorm: 547479 1 Capsule(s) PO daily No Start Date 12/25/2011 Inactive 1 D 3 1000 iu Oral RxNorm: Oral No Start Date 12/25/2011 Inactive Coumadin 2 mg tablet RxNorm: 545949 Tablet(s) PO No Start Date 04/24/2012 Inactive 5mg tue [id number] mon fri sat sun(has 2mg and 1 mg tab) dicyclomine 20 mg tablet RxNorm: 786029 Tablet(s) PO No Start Date 04/17/2012 Inactive one ac dinner and up to tid prn lactobacillus acidophilus tablet RxNorm: 1 Tablet(s) PO daily No Start Date 11/03/2015 Inactive Levoxyl 75 mcg Tab RxNorm: 242532 1 Tablet(s) PO daily No Start Date 10/02/2011 Inactive digoxin 125 mcg tablet RxNorm: 8424929 1 Tablet(s) PO daily No Start Date 03/12/2012 Inactive pantoprazole 40 mg tablet,delayed release RxNorm: 210928 1 Tablet(s) PO BID No Start Date 01/04/2016 Inactive cyclobenzaprine 5 mg tablet RxNorm: 372689 1/2 Tablet(s) PO Q8 PRN No Start Date 10/24/2016 Inactive diltiazem 90 mg Tab RxNorm: 144748 1/2 Tablet(s) PO QPM No Start Date 12/25/2011 Inactive Mirapex 1 mg Tab RxNorm: 222049 1 Tablet(s) PO QHS No Start Date 12/25/2011 Inactive Xanax 0.25 mg tablet RxNorm: 585447 1 Tablet(s) PO Q6 PRN No Start Date 11/10/2013 Inactive Premarin 0.625 mg/gram Vaginal Cream RxNorm: 055774 1 Application VAG 1 applicator per vagina 3 times per week No Start Date 02/19/2012 Inactive Synthroid 75 mcg Tab RxNorm: 017112 1 Tablet(s) PO daily No Start Date 04/17/2012 Inactive lisinopril 40 mg Tab RxNorm: 383279 1 Tablet(s) PO daily No Start Date 12/25/2011 Inactive Glucosamine Chondroitin Complex Advanced [id number] Tab RxNorm: 2 Tablet(s) PO daily No Start Date 08/08/2011 Inactive famotidine 20 mg tablet RxNorm: 745099 1 Tablet(s) PO QAM No Start Date 11/02/2015 Inactive cranberry extract 250 mg Tab RxNorm: 053506 2 Tablet(s) PO daily No Start Date 08/08/2011 Inactive Vitamin D3 1,000 unit capsule RxNorm: 978296 1 Capsule(s) PO daily No Start Date 08/31/2015 Inactive aspirin 81 mg Tab, Delayed Release RxNorm: 604749 1 Tablet(s) PO daily No Start Date 08/31/2015 Inactive diltiazem ER 120 mg capsule,extended release RxNorm: 331376 1 Capsule(s) PO daily patient would like 4 months at a time No Start Date 06/02/2013 Inactive omeprazole 20 mg Tab, Delayed Release RxNorm: 711430 2 Tablet(s) PO QHS No Start Date 2012 Inactive lisinopril 10 mg tablet RxNorm: 084748 1/2 Tablet(s) PO daily No Start Date 10/16/2012 Inactive Pred Forte 1 % Eye Drops RxNorm: 498894 1 Drop(s) OPH daily right eye No Start Date 12/25/2013 Inactive calcium carbonate 400 mg Chewable Tab RxNorm: 035074 1 Tablet(s) PO daily No Start Date 08/08/2011 Inactive Vesicare 10 mg tablet RxNorm: 407981 1 Tablet(s) PO QHS No Start Date 02/12/2012 Inactive potassium 99 mg tablet RxNorm: 1 Tablet(s) PO QPM No Start Date 12/25/2013 Inactive timolol 0.25 % Eye Drops RxNorm: 357133 1 Drop(s) OPH daily Left eye No Start Date 04/17/2012 Inactive diltiazem ER 90 mg capsule,extended release 12 hr RxNorm: 501607 1/2 Capsule(s) PO QPM No Start Date 04/28/2014 Inactive cyclobenzaprine 5 mg Tab RxNorm: 805873 1/2-1 Tablet(s) PO Q8 PRN No Start Date 12/25/2011 Inactive 1/2 - 1 tab q 8hrs prn muscle spasms Medication Administered Medication Codes Instructions Start Date Status Influenza Virus Vaccine 0.5 mL RxNorm: 04/23/2013 No longer Active Rocephin 500 mg Solution for Injection RxNorm: 157044 11/23/2011 No longer Active Immunizations Vaccine Codes [...] hemorrhoids ICD-10: K64.0 ICD-9: 455.6 03/24/2016 Other jail (current) drug therapy ICD-10: Z79.899 ICD-9: V58.69 [...] Code Result Date C RAP A SC 7125998 Strep A Negative 11/21/2016 Thyroid Antibodies 783381 THYROGLOBULIN ANTIBODY . 11/04/2016 Thyroid Antibodies 862066 THYROGLOBULIN ANTIBODY 919 IU/mL 11/04/2016 Thyroid Antibodies 767681 THYROID PEROXIDASE (TPO) AB . 11/04/2016 Thyroid Antibodies 165999 THYROID PEROXIDASE (TPO) AB 10 IU/mL 11/04/2016 Total T3 Ord42 TT3 0.64 ng/ml 11/03/2016 Free T4 Aje811 FREE T4 1.39 ng/dL 11/02/2016 Tsh Ord6 [...] Differential Ord2 RDW 13.8 % 05/26/2015 Pt Lez1683 PT 25.0 seconds 05/26/2015 Pt [id number] INR 2.4 05/26/2015 Pt Kog8056 Low Intensity - 1.5-2.0 05/26/2015 Pt [id number] Mod intensity - 2.0-3.0 05/26/2015 Pt Tpl1859 Hi intensity - 3.0-4.0 05/26/2015 Uric Acid [...] Digoxin Ord9 DIGOXIN 0.6 NG/ML 05/06/2015 Pt Mhi8296 PT 23.3 seconds 05/06/2015 Pt Sch4219 INR 2.1 05/06/2015 Pt Ywv2746 Low Intensity - 1.5-2.0 05/06/2015 Pt Kia6082 Mod intensity - 2.0-3.0 05/06/2015 Pt Lhx9012 Hi intensity - 3.0-4.0 05/06/2015 Free T4 Sxv933 FREE T4 1.65 ng/dL 05/06/2015 Comp Metabolic Exx702 NA 132 mEq/L 05/06/2015 Comp Metabolic Jyd126 K 4.1 mEq/L 05/06/2015 Comp Metabolic Ccf853 CL 98 mEq/L 05/06/2015 Comp Metabolic Nlc189 CO2 27.0 mEq/L 05/06/2015 Comp Metabolic Uid150 ANION GAP 11 05/06/2015 Comp Metabolic Klf343 GLUCOSE 71 mg/dL 05/06/2015 Comp Metabolic Ozq190 Creat 0.7 mg/dL 05/06/2015 Comp Metabolic Vwp543 eGFR 82 ml/min/1.73m2 05/06/2015 Comp Metabolic Oaz190 BUN 16 mg/dL 05/06/2015 Comp Metabolic Qls578 B/C Ratio 22.2 Ratio 05/06/2015 Comp Metabolic Eel124 CALCIUM 9.4 mg/dL 05/06/2015 Comp Metabolic Wwk825 ALK PHOS 60 U/L 05/06/2015 Comp Metabolic Wlo511 AST(SGOT) 22 U/L 05/06/2015 Comp Metabolic Gpo799 ALT(SGPT) 24 U/L 05/06/2015 Comp Metabolic Pwv368 BILI T 0.8 mg/dL 05/06/2015 Comp Metabolic Mzs730 ALBUMIN 4.3 g/dL 05/06/2015 Comp Metabolic Gzo278 TPRO 7.6 g/dL 05/06/2015 Comp Metabolic Grg915 GLOB 3.3 g/dL 05/06/2015 Comp Metabolic Qlr664 A/G Ratio 1.3 Ratio 05/06/2015 Comp Metabolic Jxu371 Osmo 264 mOsmo 05/06/2015 DIGOXIN 1257596 DIGOXIN 1.1 NG/ML 05/15/2013 PT/MC 6334142 PRO TIME 21.7 SEC 05/15/2013 PT/MC 8261879 INR MCMC 2.0 05/15/2013 CHEM 14 0235541 AST 24 U/L 04/23/2013 CHEM 14 2797760 ALT 31 IU/L 04/23/2013 CHEM 14 2879913 BUN 13 MG/DL 04/23/2013 CHEM 14 4907287 ALBUMIN 4.1 GM/DL 04/23/2013 CHEM 14 0455686 CHLORIDE 103 MMOL/L 04/23/2013 CHEM 14 1542528 BILI TOT 0.5 MG/DL 04/23/2013 CHEM 14 0221611 ALK PHOS 44 U/L 04/23/2013 CHEM 14 1762557 SODIUM 137 MMOL/L 04/23/2013 CHEM 14 4741623 CREATININE 0.61 MG/DL 04/23/2013 CHEM 14 4664778 CALCIUM 9.5 MG/DL 04/23/2013 CHEM 14 7393014 POTASSIUM 4.0 MMOL/L 04/23/2013 CHEM 14 0921079 PROT TOT 6.6 GM/DL 04/23/2013 CHEM 14 3172961 GLUCOSE 99 MG/DL 04/23/2013 CHEM 14 3892325 BICARB 27 MMOL/L 04/23/2013 CHEM 14 9048210 ANION GAP 7 MEQ/L 04/23/2013 GFR CALC 7771955 GFR AA >60 ML/MIN 04/23/2013 GFR CALC 3024774 GFR NON-AA >60 ML/MIN 04/23/2013 TSH 8205411 TSH 4.204 uIU/ML 04/23/2013 CBC 7815714 WBC 6.7 10e9/L 04/23/2013 CBC 4799285 RBC 4.19 10e12/L 04/23/2013 CBC 5464617 HGB 13.2 g/dL 04/23/2013 CBC 2281133 HCT DET 39.2 % 04/23/2013 CBC 0035524 MCV 93.6 fL 04/23/2013 CBC 5748010 MCH 31.5 pg 04/23/2013 CBC 8655002 MCHC 33.7 g/dL 04/23/2013 CBC 3734440 PLT 202 10e9/L 04/23/2013 CBC 6251844 MPV 11.4 fL 04/23/2013 CBC 0957720 YANIRA % 70.5 % 04/23/2013 CBC 1738751 LY % 19.6 % 04/23/2013 CBC 3999356 MON % 8.2 % 04/23/2013 CBC 2830046 EOS % 1.6 % 04/23/2013 CBC 7871206 BASO % 0.1 % 04/23/2013 CBC 7382781 RDW 13.7 % 04/23/2013 CBC 5421006 ABS YANIRA 4.72 10e9/L 04/23/2013 CBC 2544420 ABS LYMPH 1.31 10e9/L 04/23/2013 CBC 6760763 ABS MONO 0.55 10e9/L 04/23/2013 CBC 8762826 ABS EOS 0.11 10e9/L 04/23/2013 CBC 2902666 ABS BASO 0.01 10e9/L 04/23/2013 CBC 4290133 RDW-SD 45.7 fL 04/23/2013 PT/MC 1788493 PRO TIME 13.4 SEC 12/17/2012 PT/MC 0369196 INR MCMC 1.0 12/17/2012 PT/MC 5050125 PRO TIME 16.6 SEC 12/14/2012 PT/MC 7179348 INR MCMC 1.4 12/14/2012 PT/MC 0450909 PRO TIME 27.2 SEC 12/11/2012 PT/MC 6194500 INR MCMC 2.6 12/11/2012 DIGOXIN 5512219 DIGOXIN 2.1 NG/ML 03/08/2012 GFR CALC 9389782 GFR AA >60 ML/MIN 03/08/2012 GFR CALC 6357137 GFR NON-AA >60 ML/MIN 03/08/2012 CHEM 14 20280112 AST 16 U/L 03/08/2012 CHEM 14 20280112 ALT 14 IU/L 03/08/2012 CHEM 14 20280112 BUN 10 MG/DL 03/08/2012 CHEM 14 20280112 ALBUMIN 4.2 GM/DL 03/08/2012 CHEM 14 20280112 CHLORIDE 100 MMOL/L 03/08/2012 CHEM 14 20280112 BILI TOT 0.5 MG/DL 03/08/2012 CHEM 14 9952229 ALK PHOS 59 U/L 03/08/2012 CHEM 14 20280112 SODIUM 136 MMOL/L 03/08/2012 CHEM 14 1970078 CREATININE 0.65 MG/DL 03/08/2012 CHEM 14 5365131 CALCIUM 9.4 MG/DL 03/08/2012 CHEM 14 3009867 POTASSIUM 3.9 MMOL/L 03/08/2012 CHEM 14 5420857 PROT TOT 6.7 GM/DL 03/08/2012 CHEM 14 7708939 GLUCOSE 90 MG/DL 03/08/2012 CHEM 14 2261917 BICARB 30 MMOL/L 03/08/2012 CHEM 14 1911910 ANION GAP 6 MEQ/L 03/08/2012 CHEM 14 7041227 AST 16 U/L 11/23/2011 CHEM 14 2864558 ALT 14 IU/L 11/23/2011 CHEM 14 7692519 BUN 11 MG/DL 11/23/2011 CHEM 14 1112208 ALBUMIN 4.1 GM/DL 11/23/2011 CHEM 14 1191975 CHLORIDE 100 MMOL/L 11/23/2011 CHEM 14 2038963 BILI TOT 0.5 MG/DL 11/23/2011 CHEM 14 6548087 ALK PHOS 50 U/L 11/23/2011 CHEM 14 6978761 SODIUM 135 MMOL/L 11/23/2011 CHEM 14 1003212 CREATININE 0.57 MG/DL 11/23/2011 CHEM 14 8225142 CALCIUM 9.1 MG/DL 11/23/2011 CHEM 14 9860400 POTASSIUM 4.5 MMOL/L 11/23/2011 CHEM 14 7727399 PROT TOT 6.5 GM/DL 11/23/2011 CHEM 14 8590163 GLUCOSE 89 MG/DL 11/23/2011 CHEM 14 8830004 BICARB 28 MMOL/L 11/23/2011 CHEM 14 9672790 ANION GAP 7 MEQ/L 11/23/2011 GFR CALC 4294203 GFR AA >60 ML/MIN 11/23/2011 GFR CALC 1094301 GFR NON-AA >60 ML/MIN 11/23/2011 CBC 8732614 WBC 5.1 10e9/L 11/23/2011 CBC 9797293 RBC 4.06 10e12/L 11/23/2011 CBC 5396195 HGB 12.5 g/dL 11/23/2011 CBC 9162439 HCT DET 37.3 % 11/23/2011 CBC 8434623 MCV 91.9 fL 11/23/2011 CBC 1112416 MCH 30.8 pg 11/23/2011 CBC 5294092 MCHC 33.5 g/dL 11/23/2011 CBC 1793183 PLT 222 10e9/L 11/23/2011 CBC 5520077 MPV 10.8 fL 11/23/2011 CBC 6148949 YANIRA % 64.2 % 11/23/2011 CBC 1496662 LY % 22.3 % 11/23/2011 CBC 2630169 MON % 11.3 % 11/23/2011 CBC 2276834 EOS % 1.8 % 11/23/2011 CBC 6131420 BASO % 0.4 % 11/23/2011 CBC 4245354 RDW 13.6 % 11/23/2011 CBC 5249023 ABS YANIRA 3.27 10e9/L 11/23/2011 CBC 3915170 ABS LYMPH 1.14 10e9/L 11/23/2011 CBC 0291866 ABS MONO 0.58 10e9/L 11/23/2011 CBC 8143496 ABS EOS 0.09 10e9/L 11/23/2011 CBC 6447415 ABS BASO 0.02 10e9/L 11/23/2011 CBC 4854234 RDW-SD 44.5 fL 11/23/2011 UA 08475 Specific [place] 1.005 03/04/2011 UA 27836 PH 6 03/04/2011 UA 86694 GLUCOSE N 03/04/2011 UA 74891 Protein N 03/04/2011 UA 28002 Blood ++ 03/04/2011 UA 29326 Bilirubin N 03/04/2011 UA 93051 Ketones N 03/04/2011 UA 09586 Urobilinogen N 03/04/2011 UA 18856 Nitrite N 03/04/2011 UA 16514 Leukocytes N 03/04/2011 URINALYSIS NONAUTO W/O SCOPE 83521 Specific [place] 1.010 DateTime(Free Text in Aprima) URINALYSIS NONAUTO W/O SCOPE 72913 PH 6.5 DateTime(Free Text in Aprima) URINALYSIS NONAUTO W/O SCOPE 44820 GLUCOSE neg DateTime(Free Text in Aprima) URINALYSIS NONAUTO W/O SCOPE 74001 Protein neg DateTime(Free Text in Aprima) URINALYSIS NONAUTO W/O SCOPE 86845 Blood 3+ DateTime(Free Text in Aprima) URINALYSIS NONAUTO W/O SCOPE 31549 Bilirubin neg DateTime(Free Text in Aprima) URINALYSIS NONAUTO W/O SCOPE 25522 Ketones neg DateTime(Free Text in Aprima) URINALYSIS NONAUTO W/O SCOPE 43875 Urobilinogen neg DateTime(Free Text in Aprima) URINALYSIS NONAUTO W/O SCOPE 95989 Nitrite neg DateTime(Free Text in Aprima) URINALYSIS NONAUTO W/O SCOPE 63505 Leukocytes neg DateTime(Free Text in Aprima) URINALYSIS NONAUTO W/O SCOPE 56349 Specific [place] 1.010 DateTime(Free Text in Aprima) URINALYSIS NONAUTO W/O SCOPE 26697 PH 5 DateTime(Free Text in Aprima) URINALYSIS NONAUTO W/O SCOPE 13133 GLUCOSE neg DateTime(Free Text in Aprima) URINALYSIS NONAUTO W/O SCOPE 09520 Protein neg DateTime(Free Text in Aprima) URINALYSIS NONAUTO W/O SCOPE 01088 Blood 3+ DateTime(Free Text in Aprima) URINALYSIS NONAUTO W/O SCOPE 80807 Bilirubin neg DateTime(Free Text in Aprima) URINALYSIS NONAUTO W/O SCOPE 70924 Ketones neg DateTime(Free Text in Aprima) URINALYSIS NONAUTO W/O SCOPE 27940 Urobilinogen neg DateTime(Free Text in Aprima) URINALYSIS NONAUTO W/O SCOPE 49413 Nitrite neg DateTime(Free Text in Aprima) URINALYSIS NONAUTO W/O SCOPE 00277 Leukocytes neg DateTime(Free Text in Aprima) URINALYSIS NONAUTO W/O SCOPE 09097 Specific [place] 1.005 DateTime(Free Text in Aprima) URINALYSIS NONAUTO W/O SCOPE 12433 PH 8.5 DateTime(Free Text in Aprima) URINALYSIS NONAUTO W/O SCOPE 22557 GLUCOSE neg DateTime(Free Text in Aprima) URINALYSIS NONAUTO W/O SCOPE 01594 Protein neg DateTime(Free Text in Aprima) URINALYSIS NONAUTO W/O SCOPE 05808 Blood 1+ DateTime(Free Text in Aprima) URINALYSIS NONAUTO W/O SCOPE 47534 Bilirubin neg DateTime(Free Text in Aprima) URINALYSIS NONAUTO W/O SCOPE 29045 Ketones neg DateTime(Free Text in Aprima) URINALYSIS NONAUTO W/O SCOPE 91589 Urobilinogen neg DateTime(Free Text in Aprima) URINALYSIS NONAUTO W/O SCOPE 04599 Nitrite neg DateTime(Free Text in Aprima) URINALYSIS NONAUTO W/O SCOPE 81949 Leukocytes neg DateTime(Free Text in Aprima) URINALYSIS NONAUTO W/O SCOPE 18618 Specific [place] 1.005 DateTime(Free Text in Aprima) URINALYSIS NONAUTO W/O SCOPE 11530 PH 7 DateTime(Free Text in Aprima) URINALYSIS NONAUTO W/O SCOPE 71908 GLUCOSE neg DateTime(Free Text in Aprima) URINALYSIS NONAUTO W/O SCOPE 55665 Protein neg DateTime(Free Text in Aprima) URINALYSIS NONAUTO W/O SCOPE 53201 Blood large DateTime(Free Text in Aprima) URINALYSIS NONAUTO W/O SCOPE 29812 Bilirubin neg DateTime(Free Text in Aprima) URINALYSIS NONAUTO W/O SCOPE 10863 Ketones neg DateTime(Free Text in Aprima) URINALYSIS NONAUTO W/O SCOPE 61890 Urobilinogen 0.2 DateTime(Free Text in Aprima) URINALYSIS NONAUTO W/O SCOPE 39710 Nitrite neg DateTime(Free Text in Aprima) URINALYSIS NONAUTO W/O SCOPE 41421 Leukocytes neg DateTime(Free Text in Aprima) URINALYSIS NONAUTO W/O SCOPE 81328 Specific [place] 1.005 DateTime(Free Text in Aprima) URINALYSIS NONAUTO W/O SCOPE 98486 PH 7.5 DateTime(Free Text in Aprima) URINALYSIS NONAUTO W/O SCOPE 45192 GLUCOSE DateTime(Free Text in Aprima) URINALYSIS NONAUTO W/O SCOPE 66078 Protein trace DateTime(Free Text in Aprima) URINALYSIS NONAUTO W/O SCOPE 62896 Blood 4+ DateTime(Free Text in Aprima) URINALYSIS NONAUTO W/O SCOPE 29194 Bilirubin DateTime(Free Text in Aprima) URINALYSIS NONAUTO W/O SCOPE 61792 Ketones DateTime(Free Text in Aprima) URINALYSIS NONAUTO W/O SCOPE 74519 Urobilinogen DateTime(Free Text in ) URINALYSIS NONAUTO W/O SCOPE 57123 Nitrite DateTime(Free Text in Apr) URINALYSIS NONAUTO W/O SCOPE 06345 Leukocytes trace DateTime(Free Text in ) Review [...] Procedure Codes Date PPPS, SUBSEQ VISIT CPT-4: R3176Mupinno 01/23/2017 URINALYSIS NONAUTO W/O SCOPE CPT-4: 28633Uuixlkc 05/17/2016 ADMIN INFLUENZA VIRUS VAC CPT-4: H5461Yuwfugd 03/24/2016 FLU VACC PRSV FREE INC ANTIG CPT-4: 16471Mloutok 03/24/2016 ADMIN PNEUMOCOCCAL VACCINE SNOMED CT: 97440389 CPT-4: O6108Cdniour 05/13/2015 PNEUMOCOCCAL VACC [address]: 61614300 CPT-4: 59917Qsuuarw 05/13/2015 Pneumococcal Polysaccharide Vaccine, 23-Valent, Ad Assigned to/Mela Bledsoe CPT-4: 33294Mufitir 07/11/2014 ADMIN PNEUMOCOCCAL VACCINE SNOMED CT: 89044599 CPT-4: G2901Mfmdbid 07/11/2014 URINALYSIS NONAUTO W/O SCOPE CPT-4: 45651Zsikmbq 05/14/2014 URINALYSIS NONAUTO W/O SCOPE CPT-4: 41084Adhfgit 05/06/2014 URINALYSIS NONAUTO W/O SCOPE CPT-4: 11234Eazjnvw 04/29/2014 ADMIN INFLUENZA VIRUS VAC CPT-4: V4186Ogsrasv 03/20/2014 FLU VAC NO PRSV 4 SCOTT 3 YRS+ Assigned to/Mela Bledsoe CPT-4: 99280Awhqwhj 03/20/2014 URINALYSIS NONAUTO W/O SCOPE CPT-4: 99988Nxffjpf 07/29/2013 URINALYSIS NONAUTO W/O SCOPE CPT-4: 08922Tfvonqj 07/01/2013 URINALYSIS NONAUTO W/O SCOPE CPT-4: 39231Zvukesl 06/20/2013 ROUTINE VENIPUNCTURE CPT-4: 34667Guozrts 05/15/2013 ROUTINE VENIPUNCTURE CPT-4: 03394Nfqyjzq 04/23/2013 ADMIN INFLUENZA VIRUS VAC CPT-4: C8758Yfmytmj 04/23/2013 FLULAVAL VACC, 3 YRS & >, IM CPT-4: W5369Scalshk 04/23/2013 ROUTINE VENIPUNCTURE CPT-4: 36624Tsinxts 12/17/2012 ROUTINE VENIPUNCTURE CPT-4: 10496Bnibmiq 12/14/2012 ROUTINE VENIPUNCTURE CPT-4: 07280Devrauz 12/11/2012 PRESCRIP TRANSMIT VIA ERX SY CPT-4: H5979Glpesjl 12/11/2012 PRESCRIP TRANSMIT VIA ERX SY CPT-4: R6778Iabximx 10/30/2012 URINALYSIS NONAUTO W/O SCOPE CPT-4: 50620Ognvicc 09/13/2012 ADMIN INFLUENZA VIRUS VAC CPT-4: A1681Dvskbdp 04/18/2012 FLULAVAL VACC, 3 YRS & >, IM CPT-4: D2846Szxmwze 04/18/2012 URINALYSIS NONAUTO W/O SCOPE CPT-4: 79203Upzoelm 03/13/2012 ROUTINE VENIPUNCTURE CPT-4: 28617Kcybdlk 03/08/2012 URINALYSIS NONAUTO W/O SCOPE CPT-4: 86248Tgmayqw 02/13/2012 PRESCRIP TRANSMIT VIA ERX SY CPT-4: U4959Njyhbtx 02/13/2012 ROCEPHIN, PER 250 MG CPT-4: Y3638Rnwmbon 11/23/2011 ROUTINE VENIPUNCTURE CPT-4: 90195Vvsxdhk 11/23/2011 URINALYSIS NONAUTO W/O SCOPE CPT-4: 90830Ljqgypw 11/23/2011 PRESCRIP TRANSMIT VIA ERX SY CPT-4: B9020Vkcfiss 11/23/2011 REMOVE IMPACTED EAR WAX UNI CPT-4: 48303Rniwvgl 10/17/2011 PRESCRIP TRANSMIT VIA ERX SY CPT-4: R1406Bqvfavh 10/03/2011 PRESCRIP TRANSMIT VIA ERX SY CPT-4: P1563Dhkxcjw 08/08/2011 URINALYSIS NONAUTO W/O SCOPE CPT-4: 04950Ajgctyv 03/15/2011 URINALYSIS NONAUTO W/O SCOPE CPT-4: 61190Fxhaeok 03/04/2011 THER/PROPH/DIAG INJ SC/IM CPT-4: 32015Vyrctmc 03/04/2011 ROCEPHIN, PER 250 MG CPT-4: A9415Hzgpzut 03/04/2011 Vital Signs Date Vital 01/23/2017 BMI: 21.5 Code: 70708-0 Height: 5' Weight: 110 lbs 01/19/2017 Blood Pressure 1: 112/60 Code: 8480-6 BMI: 21.5 Code: 10610-3 Heart Rate 1: 54 bpm Height: 5' SpO2: 97% Weight: 110 lbs 11/29/2016 Blood Pressure 1: 126/68 Code: 8480-6 Height: 5' Weight: 11/23/2016 Blood Pressure 1: 130/72 Code: 8480-6 BMI: 21.9 Code: 28240-8 Heart Rate 1: 48 bpm Height: 5' SpO2: 97% Temperature: 36.7 (C) / 98.0 (F) Weight: 112 lbs 11/21/2016 Blood Pressure 1: 134/76 Code: 8480-6 BMI: 21.9 Code: 23555-7 Heart Rate 1: 41 bpm Height: 5' SpO2: 94% Temperature: 36.9 (C) / 98.4 (F) Weight: 112 lbs 11/08/2016 Blood Pressure 1: 126/74 Code: 8480-6 Heart Rate 1: 82 bpm Height: 5' SpO2: 94% Weight: 11/02/2016 Blood Pressure 1: 112/66 Code: 8480-6 Heart Rate 1: 72 bpm Height: 5' SpO2: 95% Weight: 10/27/2016 Blood Pressure 1: 130/64 Code: 8480-6 BMI: 21.7 Code: 35810-6 Heart Rate 1: 81 bpm Height: 5' SpO2: 96% Weight: 111 lbs 08/31/2016 Blood Pressure 1: 132/72 Code: 8480-6 BMI: 22.5 Code: 29790-6 Heart Rate 1: 66 bpm Height: 5' Weight: 115 lbs 07/27/2016 Blood Pressure 1: 166/74 Code: 8480-6 BMI: 23.2 Code: 24252-5 Heart Rate 1: 48 bpm Height: 5' SpO2: 90% Temperature: 36.8 (C) / 98.2 (F) Weight: 119 lbs 06/23/2016 Blood Pressure 1: 128/70 Code: 8480-6 BMI: 22.3 Code: 88728-3 Heart Rate 1: 75 bpm Height: 5' SpO2: 97% Weight: 114 lbs 06/09/2016 BMI: 22.7 Code: 34380-7 Heart Rate 1: 73 bpm Height: 5' SpO2: 97% Weight: 116 lbs 05/25/2016 Blood Pressure 1: 138/62 Code: 8480-6 BMI: 22.8 Code: 08733-8 Heart Rate 1: 76 bpm Height: 5' Weight: 117 lbs 05/17/2016 Blood Pressure 1: 116/70 Code: 8480-6 BMI: 22.8 Code: 15830-9 Heart Rate 1: 74 bpm Height: 5' SpO2: 94% Weight: 117 lbs 03/24/2016 Blood Pressure 1: 154/78 Code: 8480-6 BMI: 22.5 Code: 65424-5 Heart Rate 1: 78 bpm Height: 5' SpO2: 97% Weight: 115 lbs 02/02/2016 Blood Pressure 1: 132/70 Code: 8480-6 BMI: 22.3 Code: 16350-5 Heart Rate 1: 74 bpm Height: 5' SpO2: 94% Weight: 114 lbs 2016 Blood Pressure 1: 120/62 Code: 8480-6 BMI: 22.0 Code: 36103-1 Heart Rate 1: 68 bpm Height: 5' Weight: 112 lbs 8 oz 12/21/2015 Blood Pressure 1: 122/82 Code: 8480-6 BMI: 21.9 Code: 68425-5 Heart Rate 1: 83 bpm Height: 5' SpO2: 93% Temperature: 37.1 (C) / 98.7 (F) Weight: 112 lbs 11/03/2015 Blood Pressure 1: 122/72 Code: 8480-6 BMI: 22.4 Code: 33894-4 Heart Rate 1: 62 bpm Height: 5' Weight: 114 lbs 8 oz 10/19/2015 Blood Pressure 1: 138/62 Code: 8480-6 BMI: 21.1 Code: 74181-0 Heart Rate 1: 79 bpm Height: 5' Weight: 108 lbs 10/13/2015 Blood Pressure 1: 120/62 Code: 8480-6 BMI: 21.0 Code: 73908-0 Heart Rate 1: 76 bpm Height: 5' SpO2: 98% Weight: 108 lbs 09/29/2015 Blood Pressure 1: 130/70 Code: 8480-6 BMI: 20.2 Code: 32144-7 Heart Rate 1: 72 bpm Height: 5' Weight: 104 lbs 09/15/2015 Blood Pressure 1: 128/78 Code: 8480-6 BMI: 19.9 Code: 39598-8 Heart Rate 1: 72 bpm Height: 5' Weight: 102 lbs 8 oz 09/01/2015 Blood Pressure 1: 128/68 Code: 8480-6 BMI: 19.8 Code: 69423-0 Height: 5' Weight: 102 lbs 05/26/2015 Blood Pressure 1: 140/68 Code: 8480-6 BMI: 19.0 Code: 06941-4 Heart Rate 1: 70 bpm Height: 5' Weight: 98 lbs 05/21/2015 Blood Pressure 1: 140/78 Code: 8480-6 BMI: 19.2 Code: 72955-6 Heart Rate 1: 85 bpm Height: 5' SpO2: 95% Weight: 99 lbs 05/07/2015 Blood Pressure 1: 140/82 Code: 8480-6 BMI: 19.0 Code: 77787-9 Heart Rate 1: 76 bpm Height: 5' Weight: 98 lbs 03/23/2015 Blood Pressure 1: 142/60 Code: 8480-6 BMI: 18.6 Code: 16884-5 Heart Rate 1: 52 bpm Height: 5' Weight: 96 lbs 03/09/2015 Blood Pressure 1: 138/74 Code: 8480-6 BMI: 18.8 Code: 99828-9 Heart Rate 1: 60 bpm Height: 5' Weight: 97 lbs 10/30/2014 Blood Pressure 1: 112/82 Code: 8480-6 BMI: 19.0 Code: 93763-0 Heart Rate 1: 64 bpm Height: 5' Weight: 98 lbs 07/11/2014 Blood Pressure 1: 146/70 Code: 8480-6 BMI: 18.8 Code: 63758-9 Heart Rate 1: 68 bpm Height: 5' Weight: 97 lbs 05/20/2014 Blood Pressure 1: 142/76 Code: 8480-6 BMI: 18.6 Code: 61186-9 Heart Rate 1: 78 bpm Height: 5' Weight: 96 lbs 04/29/2014 Blood Pressure 1: 138/62 Code: 8480-6 BMI: 18.3 Code: 40891-2 Heart Rate 1: 80 bpm Height: 5' Weight: 94 lbs 8 oz 03/20/2014 Blood Pressure 1: 142/68 Code: 8480-6 BMI: 18.6 Code: 82113-6 Heart Rate 1: 96 bpm Height: 5' Weight: 96 lbs 03/05/2014 Blood Pressure 1: 122/72 Code: 8480-6 BMI: 18.8 Code: 63617-8 Heart Rate 1: 82 bpm Height: 5' SpO2: 97% Weight: 97 lbs 01/29/2014 Blood Pressure 1: 124/78 Code: 8480-6 BMI: 18.8 Code: 98154-8 Heart Rate 1: 60 bpm Height: 5' Weight: 97 lbs 01/14/2014 Blood Pressure 1: 120/58 Code: 8480-6 BMI: 19.2 Code: 92719-4 Heart Rate 1: 56 bpm Height: 5' Temperature: 36.9 (C) / 98.4 (F) Weight: 99 lbs 12/25/2013 Blood Pressure 1: 118/78 Code: 8480-6 BMI: 19.2 Code: 03123-3 Heart Rate 1: 68 bpm Height: 5' Weight: 99 lbs 11/27/2013 Blood Pressure 1: 102/68 Code: 8480-6 BMI: 19.4 Code: 19475-3 Heart Rate 1: 56 bpm Height: 5' Weight: 100 lbs 09/12/2013 Blood Pressure 1: 142/62 Code: 8480-6 BMI: 19.7 Code: 51859-8 Heart Rate 1: 72 bpm Height: 5'1" Weight: 104 lbs 08/15/2013 Blood Pressure 1: 152/92 Code: 8480-6 Heart Rate 1: 96 bpm Weight: 102 lbs 08/01/2013 Blood Pressure 1: 122/68 Code: 8480-6 BMI: 19.1 Code: 26461-3 Heart Rate 1: 68 bpm Height: 5'1" Weight: 101 lbs 07/01/2013 Blood Pressure 1: 130/72 Code: 8480-6 BMI: 19.5 Code: 89595-1 Heart Rate 1: 80 bpm Height: 5'1" Temperature: 36.1 (C) / 97.0 (F) Weight: 103 lbs 05/29/2013 Blood Pressure 1: 126/72 Code: 8480-6 BMI: 19.3 Code: 33476-8 Heart Rate 1: 80 bpm Height: 5'1" Weight: 102 lbs 05/15/2013 Blood Pressure 1: 156/74 Code: 8480-6 BMI: 19.3 Code: 87961-8 Heart Rate 1: 88 bpm Height: 5'1" Weight: 102 lbs 04/23/2013 Blood Pressure 1: 140/82 Code: 8480-6 BMI: 19.3 Code: 78993-5 Heart Rate 1: 72 bpm Height: 5'1" Weight: 102 lbs 03/21/2013 Blood Pressure 1: 142/74 Code: 8480-6 Heart Rate 1: 92 bpm Weight: 103 lbs 01/16/2013 Blood Pressure 1: 120/56 Code: 8480-6 BMI: 20.0 Code: 48306-4 Heart Rate 1: 72 bpm Height: 5'1" Weight: 106 lbs 12/19/2012 Blood Pressure 1: 118/66 Code: 8480-6 Heart Rate 1: 84 bpm Weight: 12/10/2012 Blood Pressure 1: 132/62 Code: 8480-6 Heart Rate 1: 64 bpm Weight: 103 lbs 10/30/2012 Blood Pressure 1: 122/66 Code: 8480-6 BMI: 19.9 Code: 48374-6 Heart Rate 1: 61 bpm Height: 5'1" [...] 1: 118/72 Code: 8480-6 BMI: 21.0 Code: 09529-3 Heart Rate 1: 66 bpm Height: 5'1" Respiratory Rate: 16 bpm Weight: 111 lbs 2012 Blood Pressure 1: 122/62 Code: 8480-6 Heart Rate 1: 68 bpm Weight: 110 lbs 12/01/2011 Blood Pressure 1: 150/60 Code: 8480-6 BMI: 20.8 Code: 49060-2 Heart Rate 1: 60 bpm Height: 5'1" Respiratory Rate: 16 bpm Weight: 110 lbs 11/23/2011 Blood Pressure 1: 170/68 Code: 8480-6 BMI: 21.1 Code: 19847-6 Heart Rate 1: 64 bpm Height: 5'1" Temperature: 36.3 (C) / 97.3 (F) Weight: 111 lbs 8 oz 10/17/2011 Blood Pressure 1: 148/62 Code: 8480-6 Heart Rate 1: 74 bpm 10/03/2011 Blood Pressure 1: 102/48 Code: 8480-6 BMI: 21.4 Code: 34709-0 Heart Rate 1: 76 bpm Height: 5'1" Respiratory Rate: 16 bpm Weight: 113 lbs 08/08/2011 Blood Pressure 1: 128/60 Code: 8480-6 Heart Rate 1: 80 bpm Respiratory Rate: 16 bpm Weight: 113 lbs 05/09/2011 Blood Pressure 1: 130/62 Code: 8480-6 BMI: 20.7 Code: 97830-0 Heart Rate 1: 64 bpm Height: 5'1" Respiratory Rate: 16 bpm Weight: 109 lbs 8 oz 03/29/2011 Blood Pressure 1: 120/62 Code: 8480-6 BMI: 20.2 Code: 17779-9 Heart Rate 1: 66 bpm Height: 5'1" Respiratory Rate: 12 bpm Weight: 107 lbs 03/15/2011 Blood Pressure 1: 120/64 Code: 8480-6 BMI: 19.8 Code: 80546-8 Heart Rate 1: 76 bpm Height: 5'1" [...] data Encounters Encounter Performer Location Codes Date ([id number]) [id number] EST. PATIENT, LEVEL IV Diagnosis: Essential (primary) hypertension[ICD10: I10] Diagnosis: Chronic atrial fibrillation[ICD10: I48.2] Diagnosis: Dysphonia[ICD10: R49.0] Karma Bahena MD, [facility] CPT-4: 49816 01/19/2017 ([id number]) Miscellaneous no charge Diagnosis: Cough[ICD10: R05] Diagnosis: Acute upper respiratory infection, unspecified[ICD10: J06.9] Laura Bahena MD, [facility] CPT-4: 98610 11/29/2016 [id number] EST. PATIENT, LEVEL III Diagnosis: Cough[ICD10: R05] Diagnosis: Acute laryngopharyngitis[ICD10: J06.0] Katharine Bahena MD, [facility] CPT- 4: 24396 11/23/2016 ([id number]) [id number] EST. PATIENT, LEVEL III Diagnosis: Acute laryngopharyngitis[ICD10: J06.0] Laura Bahena MD, [facility] CPT-4: 29703 11/21/2016 ([id number]) Miscellaneous no charge Diagnosis: Laceration without foreign body of right forearm, subsequent encounter[ICD10: S51.811D] Karma Bahena MD [facility] CPT-4: 41128 11/17/2016 ([id number]) Miscellaneous no charge Diagnosis: Laceration without foreign body of right forearm, subsequent encounter[ICD10: S51.811D] Karma Bahena MD [facility] CPT-4: 67189 11/14/2016 ([id number]) Miscellaneous no charge Diagnosis: Laceration without foreign body of right forearm, subsequent encounter[ICD10: S51.811D] Karma Bahena MD [facility] CPT-4: 52788 11/11/2016 ([id number]) Miscellaneous no charge Diagnosis: Laceration without foreign body of right forearm, subsequent encounter[ICD10: S51.811D] Karma Bahena MD [facility] CPT-4: 57426 11/10/2016 ([id number]) 33501 EST. PATIENT, LEVEL II Diagnosis: Laceration without foreign body of right forearm, subsequent encounter[ICD10: S51.811D] Karma Bahena MD [facility] CPT-4: 65549 11/08/2016 ([id number]) 35420 EST. PATIENT, LEVEL IV Diagnosis: Atrophy of thyroid (acquired)[ICD10: E03.4] Diagnosis: Chronic atrial fibrillation[ICD10: I48.2] Diagnosis: Laceration without foreign body of right forearm, subsequent encounter[ICD10: S51.811D] Karma Bahena MD [facility] CPT-4: 14902 11/02/2016 ([id number]) 87606 EST. PATIENT, LEVEL III Diagnosis: Laceration without foreign body of right forearm, initial encounter[ICD10: S51.811A] Laura Bahena MD [facility] CPT-4: 61138 10/27/2016 ([id number]) 32540 EST. PATIENT, LEVEL IV Diagnosis: Essential (primary) hypertension[ICD10: I10] Diagnosis: Chronic atrial fibrillation[ICD10: I48.2] Karma Bahena MD [facility] CPT-4: 36721 08/31/2016 ([id number]) 81064 EST. PATIENT, LEVEL IV Diagnosis: Localized edema[ICD10: R60.0] Diagnosis: Essential (primary) hypertension[ICD10: I10] Diagnosis: Abdominal distension (gaseous)[ICD10: R14.0] Karma Bahena MD [facility] CPT-4: 50359 07/27/2016 ([id number]) 59788 EST. PATIENT, LEVEL IV Diagnosis: Essential (primary) hypertension[ICD10: I10] Diagnosis: Chronic atrial fibrillation[ICD10: I48.2] Diagnosis: Localized edema[ICD10: R60.0] Karma Bahena MD, [facility] CPT-4: 78202 06/23/2016 ([id number]) 59047 EST. PATIENT, LEVEL III Diagnosis: Localized edema[ICD10: R60.0] Karma Bahena MD, [facility] CPT-4: 16604 06/09/2016 ([id number]) 97511 EST. PATIENT, LEVEL III Diagnosis: Irritable bowel syndrome without diarrhea[ICD10: K58.9] Diagnosis: Pruritus ani[ICD10: L29.0] Karma Bahena MD, [facility] CPT-4: 36682 05/25/2016 ([id number]) 29340 EST. PATIENT, LEVEL III Diagnosis: Abdominal distension (gaseous)[ICD10: R14.0] Diagnosis: Encounter for screening mammogram for malignant neoplasm of breast[ICD10: Z12.31] Karma Bahena MD [facility] CPT-4: 31846 05/17/2016 ([id number]) 31484 EST. PATIENT, LEVEL IV Diagnosis: Essential (primary) hypertension[ICD10: I10] Diagnosis: First degree hemorrhoids[ICD10: K64.0] Diagnosis: Encounter for immunization[ICD10: Z23] Karma Bahena MD [facility] CPT-4: 22383 03/24/2016 ([id number]) 36649 EST. PATIENT, LEVEL III Diagnosis: Epidermal cyst[ICD10: L72.0] Diagnosis: Essential (primary) hypertension[ICD10: I10] Diagnosis: Chronic atrial fibrillation[ICD10: I48.2] Diagnosis: Other jail (current) drug therapy[ICD10: Z79.899] Karma Bahena MD, [facility] CPT-4: 73844 02/02/2016 ([id number]) 32817 EST. PATIENT, LEVEL III Diagnosis: Acute anal fissure[ICD10: K60.0] Karma Bahena MD [facility] CPT-4: 85041 2016 ([id number]) 82099 EST. PATIENT, LEVEL III Diagnosis: Allergic rhinitis due to pollen[ICD10: J30.1] Diagnosis: Acute upper respiratory infection, unspecified[ICD10: J06.9] Laura Bahena MD, [facility] CPT-4: 28013 12/21/2015 ([id number]) 72960 EST. PATIENT, LEVEL III Diagnosis: Essential (primary) hypertension[ICD10: I10] Diagnosis: Chronic atrial fibrillation[ICD10: I48.2] Karma Bahena MD, [facility] CPT-4: 35020 11/03/2015 ([id number]) Miscellaneous no charge Diagnosis: Impacted cerumen, right ear[ICD10: H61.21] Katharine Bahena MD, [facility] CPT-4: 78597 10/19/2015 34823 EST. PATIENT, LEVEL IV Diagnosis: Impacted cerumen, right ear[ICD10: H61.21] Diagnosis: Other allergic rhinitis[ICD10: J30.89] Katharine Bahena MD, [facility] CPT- 4: 86483 10/13/2015 ([id number]) 08182 EST. PATIENT, LEVEL IV Diagnosis: Essential (primary) hypertension[ICD10: I10] Diagnosis: Chronic atrial fibrillation[ICD10: I48.2] Diagnosis: Urge incontinence[ICD10: N39.41] Diagnosis: Age-related osteoporosis without current pathological fracture[ICD10: M81.0] Karma Bahena MD, [facility] CPT-4: 76176 09/29/2015 ([id number]) 36913 EST. PATIENT, LEVEL IV Diagnosis: Essential (primary) hypertension[ICD10: I10] Diagnosis: Chronic atrial fibrillation[ICD10: I48.2] Diagnosis: Irritable bowel syndrome without diarrhea[ICD10: K58.9] Diagnosis: Unspecified hemorrhoids[ICD10: K64.9] Karma Bahena MD, [facility] CPT-4: 18251 09/15/2015 ([id number]) 14890 EST. 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 PATIENT, LEVEL III Diagnosis: Hematuria, unspecified[ICD10: R31.9] Diagnosis: Other urethritis[ICD10: N34.2] Diagnosis: Other specified noninflammatory disorders of vagina[ICD10: N89.8] Karma Bahena MD, [facility] CPT-4: 16126 05/26/2015 15482 EST. PATIENT, LEVEL IV Diagnosis: Gout, unspecified[ICD10: M10.9] Karma Bahena MD, [facility] CPT-4: 37156 05/21/2015 ([id number]) 48214 EST. PATIENT, LEVEL IV Diagnosis: Chronic atrial fibrillation[ICD10: I48.2] Diagnosis: Irritable bowel syndrome without diarrhea[ICD10: K58.9] Diagnosis: Cystocele, unspecified[ICD10: N81.10] Diagnosis: Urge incontinence[ICD10: N39.41] Diagnosis: Fecal smearing[ICD10: R15.1] Diagnosis: Hypothyroidism, unspecified[ICD10: E03.9] Karma Bahena MD, [facility] CPT-4: 39213 05/07/2015 ([id number]) 69598 EST. PATIENT, LEVEL III Diagnosis: Atrial fibrillation[ICD9: 427.31] Diagnosis: Bloating[ICD9: 787.3] Karma Bahena MD, [facility] CPT-4: 47290 03/23/2015 ([id number]) 36854 EST. PATIENT, LEVEL IV Diagnosis: Abdominal pain[ICD9: 789.00] Diagnosis: Atrial fibrillation[ICD9: 427.31] Diagnosis: ENCNTR LONG-ANTICOAG USE[ICD9: V58.61] Karma Bahena MD, [facility] CPT-4: 10499 03/09/2015 ([id number]) 82385 EST. PATIENT, LEVEL IV Diagnosis: HEMATURIA NOS[ICD9: 599.70] Diagnosis: Atrial fibrillation[ICD9: 427.31] Diagnosis: HYPOTHYROIDISM[ICD9: 244.9] Karma Bahena MD, [facility] CPT-4: 33554 10/30/2014 ([id number]) 63799 EST. PATIENT, LEVEL IV Diagnosis: Atrial fibrillation[ICD9: 427.31] Diagnosis: ALLERGIC RHINITIS[ICD9: 477.9] Diagnosis: Need for pneumococcal vaccine[ICD9: V03.82] Diagnosis: Osteoarthritis[ICD9: 715.90] Diagnosis: Osteoporosis[ICD9: 733.00] Karma Bahena MD, [facility] CPT-4: 50227 07/11/2014 ([id number]) 52077 EST. PATIENT, LEVEL III Diagnosis: Urge incontinence[ICD9: 788.31] Diagnosis: Dysuria[ICD9: 788.1] Karma Bahena MD [facility] CPT-4: 89031 05/20/2014 ([id number]) 03827 EST. PATIENT, LEVEL IV Diagnosis: Atrial fibrillation[ICD9: 427.31] Diagnosis: Hematuria[ICD9: 599.70] Diagnosis: Dysuria[ICD9: 788.1] Diagnosis: ESSENTIAL HYPERTENSION[ICD9: 401.9] Karma Bahena MD, [facility] CPT- 4: 88587 04/29/2014 ([id number]) 87548 EST. PATIENT, LEVEL IV Diagnosis: ESSENTIAL HYPERTENSION[ICD9: 401.9] Diagnosis: ALLERGIC RHINITIS[ICD9: 477.9] Karma Bahena MD [facility] CPT-4: 73334 03/20/2014 ([id number]) 67546 EST. PATIENT, LEVEL IV Diagnosis: ESSENTIAL HYPERTENSION[ICD9: 401.9] Diagnosis: ATRIAL FIBRILLATION[ICD9: 427.31] Diagnosis: Irritable bowel[ICD9: 564.1] Karma Bahena MD [facility] CPT-4: 12108 03/05/2014 ([id number]) 17747 EST. PATIENT, LEVEL IV Diagnosis: Esophageal reflux[ICD9: 530.81] Diagnosis: DIARRHEA[ICD9: 787.91] Diagnosis: ABDOM PAIN NOS SITE[ICD9: 789.00] Karma Bahena MD [facility] CPT- 4: 70626 01/29/2014 ([id number]) 13891 EST. PATIENT, LEVEL III Diagnosis: Irritable bowel[ICD9: 564.1] Diagnosis: DIARRHEA[ICD9: 787.91] Laura Bahena MD, [facility] CPT-4: 84145 01/14/2014 ([id number]) 53944 EST. PATIENT, LEVEL IV Diagnosis: ESSENTIAL HYPERTENSION[ICD9: 401.9] Diagnosis: ATRIAL FIBRILLATION[ICD9: 427.31] Diagnosis: URGE INCONTINENCE[ICD9: 788.31] Diagnosis: MALAISE AND FATIGUE[ICD9: 780.79] Diagnosis: Dyspnea[ICD9: 786.09] Karma Bahena MD, [facility] CPT-4: 53982 12/25/2013 ([id number]) 59654 EST. PATIENT, LEVEL IV Diagnosis: ESSENTIAL HYPERTENSION[SNOMED: 69982587] Diagnosis: ATRIAL FIBRILLATION[ICD9: 427.31] Diagnosis: Abdominal pain[ICD9: 789.00] Diagnosis: ESOPHAGEAL REFLUX[ICD9: 530.81] Karma Bahena MD [facility] CPT-4: 53401 11/27/2013 ([id number]) 07408 EST. PATIENT, LEVEL IV Diagnosis: ESSENTIAL HYPERTENSION[SNOMED: 06852534] Diagnosis: ATRIAL FIBRILLATION[ICD9: 427.31] Diagnosis: Chronic osteoarthritis[ICD9: 715.90] Karma Bahena MD [facility] CPT- 4: 43034 09/12/2013 ([id number]) 75800 EST. PATIENT, LEVEL III Diagnosis: ESSENTIAL HYPERTENSION[SNOMED: 09299442] Diagnosis: Bruising[ICD9: 924.9] Diagnosis: ENCNTR LONG-RX USE NEC[ICD9: V58.69] Karma Bahena MD [facility] CPT- 4: 88128 08/15/2013 ([id number]) 73041 EST. PATIENT, LEVEL IV Diagnosis: ESSENTIAL HYPERTENSION[SNOMED: 00589753] Diagnosis: Hematuria[ICD9: 599.70] Diagnosis: Dysuria[ICD9: 788.1] Karma Bahena MD [facility] CPT-4: 83098 08/01/2013 ([id number]) 26979 EST. PATIENT, LEVEL III Diagnosis: UTI[ICD9: 599.0] Diagnosis: Hematuria[ICD9: 599.70] Laura Bahena MD [facility] CPT-4: 14930 07/01/2013 ([id number]) 51090 EST. PATIENT, LEVEL III Diagnosis: ATRIAL FIBRILLATION[ICD9: 427.31] Diagnosis: ESSENTIAL HYPERTENSION[SNOMED: 18877601] Karma Bahena MD [facility] CPT-4: 34001 05/29/2013 ([id number]) 22472 EST. PATIENT, LEVEL IV Diagnosis: Atrial fibrillation[ICD9: 427.31] Diagnosis: Encounter for monitoring digoxin therapy[ICD9: V58.83] Diagnosis: ESSENTIAL HYPERTENSION[SNOMED: 46977917] Karma Bahena MD, [facility] CPT-4: 84543 05/15/2013 ([id number]) 01386 EST. PATIENT, LEVEL IV Diagnosis: ESSENTIAL HYPERTENSION[SNOMED: 36742461] Diagnosis: ATRIAL FIBRILLATION[ICD9: 427.31] Diagnosis: PALPITATIONS[ICD9: 785.1] Diagnosis: Dizziness and giddiness[ICD9: 780.4] Karma Bahena MD, [facility] CPT- 4: 49864 04/23/2013 ([id number]) 43320 EST. PATIENT, LEVEL III Diagnosis: OTHER CONSTIPATION[ICD9: 564.09] Diagnosis: ABDOM PAIN NOS SITE[ICD9: 789.00] Laura Bahena MD, [facility] CPT- 4: 65376 03/21/2013 ([id number]) 52103 EST. PATIENT, LEVEL IV Diagnosis: ESSENTIAL HYPERTENSION[SNOMED: 91739364] Diagnosis: Atrial fibrillation[ICD9: 427.31] Karma Bahena MD, [facility] CPT- 4: 18060 01/16/2013 ([id number]) Miscellaneous no charge Diagnosis: CELLULITIS OF HAND[ICD9: 682.4] Karma Bahena MD [facility] CPT-4: 41150 12/19/2012 ([id number]) Miscellaneous no charge Diagnosis: ENCOUNTER FOR THERAPEUTIC DRUG MONITORING[ICD9: V58.83] Diagnosis: CELLULITIS OF HAND[ICD9: 682.4] Karma Bahena MD [facility] CPT-4: 46637 12/14/2012 Miscellaneous no charge Diagnosis: CELLULITIS OF HAND[ICD9: 682.4] Karma Bahena MD, [facility] CPT-4: 77903 12/12/2012 84433 EST. PATIENT, LEVEL II Diagnosis: CELLULITIS OF HAND[ICD9: 682.4] Diagnosis: ENCNTR LONG-RX USE NEC[ICD9: V58.69] Diagnosis: LONG-TERM USE ANTICOAGUL[ICD9: V58.61] Karma Bahena MD, [facility] CPT-4: 20904 12/11/2012 ([id number]) 99628 EST. PATIENT, LEVEL III Diagnosis: CELLULITIS OF HAND[ICD9: 682.4] PARVEEN Freitas MD CPT-4: 41698 12/10/2012 ([id number]) 27784 EST. PATIENT, LEVEL IV Diagnosis: Elevated digoxin level[ICD9: 796.0] Diagnosis: ATRIAL FIBRILLATION[ICD9: 427.31] Diagnosis: Inflammatory arthritis[ICD9: 714.9] PARVEEN Freitas MD CPT- 4: 27763 10/30/2012 ([id number]) 08654 EST. PATIENT, LEVEL IV Diagnosis: Atrial fibrillation[ICD9: 427.31] Diagnosis: Anticoagulant long-term use[ICD9: V58.61] Diagnosis: ESSENTIAL HYPERTENSION[SNOMED: 94547596] PARVEEN Freitas MD CPT-4: 33048 08/08/2012 ([id number]) 68563 EST. PATIENT, LEVEL IV Diagnosis: ABDOM PAIN NOS SITE[ICD9: 789.00] Diagnosis: Constipation - functional[ICD9: 564.09] Diagnosis: EDEMA[ICD9: 782.3] Diagnosis: ATRIAL FIBRILLATION[ICD9: 427.31] [facility] CPT- 4: 05477 07/11/2012 ([id number]) 57510 EST. PATIENT, LEVEL III Diagnosis: Cystocele[ICD9: 618.01] Diagnosis: Rectocele[ICD9: 618.04] PARVEEN Freitas MD CPT-4: 26762 05/08/2012 ([id number]) 24756 EST. 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 PATIENT, LEVEL IV Diagnosis: ATRIAL FIBRILLATION[ICD9: 427.31] Diagnosis: URGE INCONTINENCE[ICD9: 788.31] Diagnosis: MALAISE AND FATIGUE[ICD9: 780.79] Diagnosis: Dyspnea[ICD9: 786.09] Karma Bahena MD [facility] CPT-4: 65117 02/20/2012 45794 EST. PATIENT, LEVEL IV Diagnosis: Hematuria[ICD9: 599.70] Diagnosis: Vaginal yeast infection[ICD9: 112.1] Diagnosis: ATRIAL FIBRILLATION[ICD9: 427.31] Laura Bahena MD [facility] CPT- 4: 52109 02/13/2012 ([id number]) 53999 EST. PATIENT, LEVEL IV Diagnosis: Atrial fibrillation[ICD9: 427.31] Diagnosis: Anticoagulation goal of INR 2 to 3[ICD9: V58.83] Diagnosis: Urinary incontinence, urge[ICD9: 788.31] Diagnosis: ESSENTIAL HYPERTENSION[SNOMED: 09602144] Karma Bahena MD, [facility] CPT-4: 48898 02/01/2012 ([id number]) 11941 EST. PATIENT, LEVEL IV Diagnosis: Atrial fibrillation[ICD9: 427.31] Diagnosis: Anticoagulant long-term use[ICD9: V58.61] Diagnosis: ESSENTIAL HYPERTENSION[SNOMED: 34380156] Karma Bahena MD [facility] CPT-4: 91345 2012 56688 EST. PATIENT, LEVEL IV Diagnosis: UTI[ICD9: 599.0] Diagnosis: ESSENTIAL HYPERTENSION[SNOMED: 66529599] Diagnosis: MALAISE AND FATIGUE[ICD9: 780.79] Diagnosis: Esophageal reflux[ICD9: 530.81] Karma Bahena MD [facility] CPT-4: 32061 12/01/2011 ([id number]) 49958 EST. PATIENT, LEVEL IV Diagnosis: UTI (urinary tract infection)[ICD9: 599.0] Diagnosis: ESSENTIAL HYPERTENSION[SNOMED: 44418678] Diagnosis: URGE INCONTINENCE[ICD9: 788.31] Karma Bahena MD, [facility] CPT-4: 84972 11/23/2011 ([id number]) 04619 EST. PATIENT, LEVEL IV Diagnosis: ESSENTIAL HYPERTENSION[SNOMED: 26965340] Diagnosis: IMPACTED CERUMEN[ICD9: 380.4] Diagnosis: MALAISE AND FATIGUE[ICD9: 780.79] Diagnosis: EDEMA[ICD9: 782.3] Karma Bahena MD, [facility] CPT-4: 81934 10/03/2011 57571 EST. PATIENT, LEVEL IV Diagnosis: ESSENTIAL HYPERTENSION[SNOMED: 36699847] Diagnosis: Generalized osteoarthritis[ICD9: 715.09] Diagnosis: OSTEOPOROSIS[ICD9: 733.00] Karma Bahena MD, [facility] CPT-4: 04740 08/08/2011 14096 EST. PATIENT, LEVEL IV Diagnosis: Muscle cramp[ICD9: 729.82] Diagnosis: Torticollis[ICD9: 723.5] Diagnosis: Rash[ICD9: 782.1] Karma Bahena MD, [facility] CPT-4: 33746 05/09/2011 45105 EST. PATIENT, LEVEL IV Diagnosis: Leg cramps, sleep related[ICD9: 327.52] Diagnosis: Underweight[ICD9: 783.22] Karma Bahena MD, [facility] CPT-4: 64386 03/29/2011 37523 EST. PATIENT, LEVEL IV Diagnosis: UTI[ICD9: 599.0] Diagnosis: Urge incontinence[ICD9: 788.31] Diagnosis: Loss of weight[ICD9: 783.21] Diagnosis: Palpitations[ICD9: 785.1] Diagnosis: Peripheral neuropathy, idiopathic[ICD9: 356.9] Karma Bahena MD, [facility] CPT-4: 37445 03/15/2011 Plan of Care Planned Activity Notes [...] DOPA paperwork for health care surrogate. 01/23/2017 Patient Education: Patient Medication Summary Completed [...] becoming uncontrolled. 01/19/2017 Appointment: Karma Bahena WPtel: [facility] (15 min) Moderate 01/19/2017 Patient Education: Patient Medication Summary Completed 01/19/2017 Care Plan: Referral Order SNOMED-CT : 988792038 Pending 01/19/2017 Appointment: Karma Bahena WPtel: [facility] (15 min) Moderate 01/04/2017 Appointment: Karma Bahena WPtel: [address] [place], [place] [phone] (15 min) Moderate 12/28/2016 Visit Plan: SYN-elvnj-hlh zpack-call if symptoms do not resolve or if any worse. Patient verbalized understanding of plan. 11/29/2016 Appointment: Laura Colin WPtel: [phone] [place] (15 min) Moderate 11/29/2016 Patient Education: [...] pharmacy. 11/23/2016 Appointment: Katharine Dai WPtel: [phone] [facility] (15 min) Moderate 11/23/2016 Patient Education: Patient Medication Summary Completed 11/23/2016 Visit Plan: Pharyngitis-Discussed natural and expected course of this diagnosis and need to alert me if symptoms do not follow expected course, or if any worse. Recommended salt water gargles as needed for pain. Tylenol/motrin as needed for fever/discomfort. 11/21/2016 Appointment: Laura Colin WPtel: [phone] [phone] (15 min) Moderate 11/21/2016 Patient Education: [...] symptoms. 11/08/2016 Appointment: Karma Bahena WPtel: [phone] [facility] (10 min) Simple 11/08/2016 Patient Education: [...] bactroban, etc. 11/02/2016 Appointment: Karma Bahena WPtel: [phone] [facility] (15 min) Moderate 11/02/2016 Appointment: Nurse Visit 11/02/2016 Patient Education: Patient Medication Summary Completed 11/02/2016 Appointment: Nurse Visit 10/31/2016 Visit Plan: Laceration-right forearm- Pt was instructed to keep the wound clean, cleanse with sterile saline, use bactroban ointment, call if redness, pustular drainage, or any other acute concerns. Follow up Monday for dressing changes. 10/27/2016 Appointment: Laura Colin WPtel: [phone] [phone] (30 min) Complex 10/27/2016 Patient Education: Patient [...] in symptoms. 08/31/2016 Appointment: Karma Bahena WPtel: [address] [facility] (15 min) Moderate 08/31/2016 Patient Education: [...] your swelling. 07/27/2016 Appointment: Karma Bahena WPtel[facility] ([facility] min) Moderate 07/27/2016 Patient Education: [...] of lasix 06/23/2016 Appointment: Karma Bahena WPtel: [address] [place], [place] [address] (15 min) Moderate 06/23/2016 Patient Education: Patient Medication Summary Completed 06/23/2016 Patient Education: Hypertension Completed 06/23/2016 Visit Plan: Edema - with Dyspnea - RX for laxis and compression socks - pt to call if not improving. 06/09/2016 Appointment: Karma Bahena WPtel[facility] (15 min) Moderate 06/09/2016 Patient Education: Patient Medication Summary Completed 06/09/2016 Visit Plan: Abdominal pain and rectal itching - recommended pt to use betamethasone on vaginal/rectal region, monitor symptoms call if not improving. Continue with beano and simethicone 05/25/2016 Appointment: Karma Bahena WPtel: [phone] [facility] [place] (15 min) Moderate 05/25/2016 Patient Education: Patient Medication Summary Completed 05/25/2016 Care Plan: [employer] : 52050-8 Pending 05/20/2016 Visit Plan: Abdominal distension - use simethicone four times daily - after meals - if it does not help - in the next two weeks - call the office and we will do a ct scan of the abdomen and pelvis 05/17/2016 Appointment: Kar[facility]hen[facility]Ptel[phone] [facility] (15 min) Moderate 05/17/2016 Patient Education: [...] ointment 03/24/2016 Appointment: [facility]hen[facility]Ptel[facility] [phone] [facility] (30 min) Complex 03/24/2016 Patient [...] spray. 12/21/2015 Appointment: Laura Colin WPtel: [phone] [phone] (30 min) Complex 12/21/2015 Patient Education: [...] becoming uncontrolled. 11/03/2015 Appointment: [facility]Ptel[phone] [facility] (15 min) Moderate 11/03/2015 Patient Education: Patient [...] had left kidney and ureter removed in [place]-doing well 09/01/2015 Appointment: (30 min) Complex 09/01/2015 Patient Education: Patient Medication Summary Completed 09/01/2015 Patient Education: Hypertension Completed 09/01/2015 Appointment: Kar[facility] Bahena WPtel[facility] [address] [facility] (15 min) Moderate 07/13/2015 Visit Plan: [...] 05/13/2015 Care Plan: Referral Order SNOMED-CT : [id number] Ordered 05/08/2015 Visit Plan: Atrial Fibrillation - [...] Dr. Collins. 05/07/2015 Appointment: Kar[facility] Bahen[facility]Ptel[facility] [phone] [facility] (15 min) Moderate 05/07/2015 Patient Education: Patient [...] becoming uncontrolled. 10/30/2014 Appointment: Karma Bahena WPtel: [facility] Follow up 10/30/2014 Patient Education: Patient Medication Summary Completed 10/30/2014 Appointment: Kar[facility] Bahen[facility]Ptel[facility] [phone] [facility] Follow up 07/22/2014 Visit Plan: Atrial Fibrillation [...] in hospital. 07/11/2014 Appointment: Karma Bahena WPtel: [address] [place], [place] [phone] Sick 07/11/2014 Patient Education: Patient Medication Summary Completed 07/11/2014 Appointment: Karma Bahena WPtel: [address] [place], [place] [phone] Follow up 07/07/2014 Visit Plan: Urinary incontinence and recurrent UTI's - doctor will refer to Dr. Joel Collins - for nonsurgical intervention for potential electrical stimulation/training of pelvic floor muscles - for strengthening - can start on the treatment when you get back from [place] - will also ask him about doing a cystoscopy to look into bladder to see if there is any bladder irritation.keep using the Premarin - use about 25Cent size of cream onto finger to apply to urethra and do this three times weekly. 05/20/2014 Appointment: Karma Bahena WPtel: [address] [place], [place] [phone] Follow up 05/20/2014 Patient Education: Patient Medication Summary Completed 05/20/2014 Appointment: Karma Bahena WPtel: [address] [place] [address] [place] Lab Draw 05/14/2014 Patient Education: Patient [...] recommended vesicare. 04/29/2014 Appointment: Karma Bahena WPtel: [address] [place] [address] Follow up 04/29/2014 Patient Education: Patient Medication [...] allergy spray. 03/20/2014 Appointment: Karma Bahena WPtel: [facility] S[facility] 03/20/2014 Patient Education: Patient Medication Summary [...] becoming uncontrolled. 03/05/2014 Appointment: Karma Bahena WPtel: [facility] Follow up 03/05/2014 Patient Education: Patient [...] with report. 01/29/2014 Appointment: Karma Bahena WPtel: [facility] Follow up 01/29/2014 Patient Education: Patient [...] exposure,and dyspnea on exertion - will ask [place] Patient do an overnight oxygen study on [place] as she has cardiac history, weight loss, and nocturnal hypoxemia may be a part of her weight loss and fatigue. 12/25/2013 Appointment: Kar[facility] Bahen[facility] WPtel[facility] [phone] [facility] Follow up 12/25/2013 Patient Education: [...] daily. 11/27/2013 Appointment: Kar[facility] Bahena WPtel[facility] [phone] [facility] Follow up 11/27/2013 Patient Education: [...] and heart rate.Osteoarthritis - send pt to [facility] physical therapy for gereral osteoarhtritis program for strengthening and pain reduction. Hypertension - well controlled - continue with current medications, continue with no added salt diet. Pt has been encouraged to exercise daily.The pt has been advised to call the office if there are any acute concerns about change in blood pressure readings at home. 09/12/2013 Appointment: Karma Bahena WPtel: [phone] [facility] Follow up 09/12/2013 Patient Education: Patient Medication Summary Completed 09/12/2013 Patient Education: Hypertension Completed 09/12/2013 Appointment: Karma Bahena WPtel: [phone] [facility] Follow up 08/21/2013 Visit Plan: Hypertension [...] coumadin-check PT/INR 08/15/2013 Appointment: Karma Bahena WPtel: [phone] [facility] Follow up 08/15/2013 Patient Education: Patient [...] decrease irritation of urethra. 08/01/2013 Appointment: Karma Bahenal: [facility] [place] Follow up 08/01/2013 Patient Education: Patient Medication Summary Completed 08/01/2013 Patient Education: Hypertension Completed 08/01/2013 [facility]ment: [phone] [place] Lab Draw 07/29/2013 Patient Education: Patient Medication Summary Completed 07/29/2013 Visit Plan: Osteoporosis-prolia on june 25-patient to let Dr Hansen know 07/01/2013 Appointment: Laura Colin WPtel: [phone] [place] Follow up 07/01/2013 Appointment: Karma Bahena WPtel: [facility] [place] Follow up 07/01/2013 Patient Education: Patient Medication Summary Completed 07/01/2013 Appointment: Karma Bahena WPtel: [facility] [place] Follow up 06/25/2013 Appointment: Karma Bahena WPtel: [facility] [place] Lab Draw 06/20/2013 Patient Education: Patient Medication Summary Completed 06/20/2013 Appointment: Karma Bahena WPtel: [facility] [place] Lab Draw 06/19/2013 Visit [...] at home. 05/29/2013 Appointment: Karma Bahena WPtel: [facility] [place] Follow up 05/29/2013 Patient Education: Patient Medication [...] at home. 05/15/2013 Appointment: Karma Bahena WPtel: [address] [place] [address] Other 05/15/2013 Patient Education: Patient Medication Summary [...] shot today. 04/23/2013 Appointment: Karma Bahena WPtel: [address] [place] [address] Other 04/23/2013 Patient Education: Patient Medication Summary [...] regimen. 03/21/2013 Appointment: [phone] Follow up 03/21/2013 Patient Education: Patient Medication [...] becoming uncontrolled. 01/16/2013 Appointment: Karma Bahena WPtel: [address] [place], [place] [phone] Follow up 01/16/2013 Patient Education: Patient Medication Summary Completed 01/16/2013 Patient Education: Hypertension Completed 01/16/2013 Visit Plan: Wound Instructions - Pt was instruced to keep the wound clean, wash with antibacterial soap, use triple antibiotic ointment, call if redness, pustular drainage, or any other acute conerns. 12/19/2012 Appointment: Karma Bahena WPtel: [address] [place], [place] [phone] Other 12/19/2012 Patient Education: Patient Medication Summary Completed 12/19/2012 Patient Education: Patient Medication Summary Completed 12/17/2012 Visit Plan: Cellulitis - improved- monitor symptoms - need to check handon Monday morning. 12/14/2012 Appointment: Karma Bahena WPtel: [address] [address] [place], [place] [id number] Follow up 12/14/2012 Patient Education: Patient Medication Summary Completed 12/14/2012 Visit Plan: Cellulitis - improved- monitor symptoms - need to check handon Monday morning. 12/12/2012 Appointment: Karma Bahena WPtel: [facility] Work-in 12/12/2012 Patient Education: Patient Medication Summary [...] discharge. 12/10/2012 Appointment: [phone] [place] Other 12/10/2012 Patient Education: Patient Medication Summary [...] becoming uncontrolled. 10/30/2012 Appointment: Karma Bahena WPtel: [facility] Follow up 10/30/2012 Patient Education: Patient Medication Summary Completed 10/30/2012 Appointment: Laura Colin WPtel: [phone] [phone] [place] Lab Draw 09/13/2012 Patient Education: Patient [...] 3.5. 08/08/2012 Appointment: [facility]el[phone] Other 08/08/2012 Patient Education: Patient Medication [...] regimen. 07/11/2012 Appointment: Kar[facility] Bahen[facility]Ptel[phone] swelling, leg edema Other 07/11/2012 Patient [...] vaginally. 05/08/2012 Appointment: [facility]Ptel[phone] Follow up 05/08/2012 Patient Education: Patient [...] during hospitalization. 04/18/2012 Appointment: [facility]Ptel[phone] [place] Follow up 04/18/2012 Patient Education: Patient Medication Summary Completed 04/18/2012 Patient Education: High Blood Pressure: Essential Hypertension Completed 04/18/2012 Appointment: Karma Bahena WPtel: [address] [facility] [place] Follow up 04/09/2012 Appointment: Kar[facility]Ptel[phone] [place] Lab Draw 04/04/2012 [phone] [place] Lab Draw 03/19/2012 Visit Plan: Abdominal [...] Hypertension Completed 03/13/2012 Appointment: Kar[facility] Bahen[facility]Ptel[phone] [facility] [place] Lab Draw 03/08/2012 Patient [...] cardiac rehab. 02/20/2012 Appointment: Karma Bahena WPtel: [facility] Other 02/20/2012 Patient Education: Patient [...] 02/13/2012 Appointment: Laura Colin WPtel: [phone] [phone] Other 02/13/2012 Patient Education: Patient Medication Summary Completed 02/13/2012 Appointment: Kar[facility] Bahen[facility]Ptel[phone] [place] Lab Draw 02/07/2012 Visit Plan: [...] medication. 02/01/2012 Appointment: Kar[facility] Bahen[facility]Ptel[phone] Other 02/01/2012 Patient Education: Patient Medication Summary Completed 02/01/2012 Patient Education: High Blood Pressure: Essential Hypertension Completed 02/01/2012 Appointment: Kar[facility] Bahena WPtel[facility] [phone] [facility] [place] Lab Draw 01/17/2012 Visit Plan: [...] at home. 2012 Appointment: Karma Bahena WPtel: [facility] Other 2012 Patient Education: Patient Medication Summary Completed 2012 Patient Education: High Blood Pressure: Essential Hypertension Completed 2012 Appointment: Karma Bahena WPtel: [address] [place] [address] Follow up 12/20/2011 Visit Plan: Dicyclomine up [...] emergency room. 12/01/2011 Appointment: Karma Bahena WPtel: [facility] Other 12/01/2011 Patient Education: Patient Medication Summary [...] infection resolves. 11/23/2011 Appointment: Laura Colin WPtel: [address] [place] [address] Other 11/23/2011 Patient Education: Patient Medication Summary Completed 11/23/2011 Patient Education: High Blood Pressure: Essential Hypertension Completed 11/23/2011 Visit Plan: Cerumen Impaction - The impacted cerumen was removed with the use of either ear currette alone or in combination with ear curette and water pick. The patient tolerated the procedure without incident and had improvement in hearing 10/17/2011 Appointment: Laura Colin WPtel: [address] [place] [address] Other 10/17/2011 Patient Education: Patient Medication Summary [...] by irrigation. 10/03/2011 Appointment: Karma Bahena WPtel: [address] [place] [address] Other 10/03/2011 Patient Education: Patient Medication Summary [...] is evidence. 08/08/2011 Appointment: Karma Bahena WPtel: [facility] Other 08/08/2011 Patient Education: Patient Medication Summary Completed 08/08/2011 Patient Education: High Blood Pressure: Essential Hypertension Completed 08/08/2011 Visit Plan: Muscle cramps - the cramps are a little better, continue with the Diltiazem and it is okay to use the over the counter supplement with quinine - but use it sparingly.For the rash, use the prescription the [employer] and silver[employer] salesperson prescribed for the itching , call if the rash is not improved.Torticollis - continue with physical therapy, call if the neck muscles do not continue to show improvement. 05/09/2011 Appointment: Karma Bahena WPtel: [address] [place] [address] Other 05/09/2011 Patient Education: Patient Medication Summary [...] water aerobics. 03/29/2011 Appointment: Karma Bahena WPtel: [phone] [facility] [place] Other 03/29/2011 Patient Education: Patient Medication Summary Completed 03/29/2011 Appointment: Karma Bahena WPtel: [phone] [facility] Other 03/17/2011 Visit Plan: UTI - UA negative.Urge incontinence- restart on the vesicare- at 5 mg. Continue to avoid caffinated foods/fluids.Peripheral Neuropathy - per inspector glass or mirror report - Continue with the metanex.Loss of weight - WEIGHT CHECK IN 2 WKS. Palpitations- likely stress induced. If the symptoms worsen, call the office. 03/15/2011 Appointment: Karma Bahena WPtel: [facility] Follow up 03/15/2011 Patient Education: Patient Medication Summary Completed 03/15/2011 Visit Plan: Rocephin 500mg IM 03/04/2011 Patient Education: Patient Medication Summary Completed 03/04/2011 Referral: Dr Jeff Referral Appointment Requested Referral: Croby Collins Referral Appointment Requested Instructions Comment change the thyroid to 1/2 pill on [...] symptoms - referral to Dr. Collins. . Hypertension - uncontrolled -per patient's home [...] avoid caffinated foods/fluids. Peripheral Neuropathy - per inspector glass or mirror report - Continue with the metanex. Loss [...] consistency, recheck at follow up appointment. . Atrial Fibrillation - pt on chronic [...] therefore, would not change the medication. . LEX-xogya-yrn zpack-call if symptoms do not resolve or [...] For the rash, use the prescription the [employer] salesperson prescribed for the itching , call if [...] heart rate. Osteoarthritis - send pt to [facility] physical therapy for gereral osteoarhtritis [...] readings at home. Ynes- recommended cardiac rehab. . Hypertension - well controlled - continue [...] diet and continue with water aerobics. . Cellulitis - continue with oral antibiotics [...] had left kidney and ureter removed in [place]- doing well . Hematuria - check UA. [...] the treatment when you get back from [place] - will also ask him about doing [...] the treatment when you get back from [place] - will also ask him about doing [...] exposure,and dyspnea on exertion - will ask [facility] do an overnight oxygen study [...]
[2018-12-10 18:21] LABS: BACTERIA,URINE TRACE /HPF
--- OUTSIDE RECORDS SUMMARY | 2018-12-10 18:29 | XMS REPORT | CCD ---
Author Author Laura Colin MD, [facility] Address [address] [place] [address] Phone Care Team Providers Care Insulation Helper Name Role Phone Karma Bahena PP Unavailable CCM Unavailable Summary Purpose Interface Exchange Insurance Providers Payer name Policy type / Coverage type Covered republican ID Effective Begin Date Effective End Date WPS Medicare Part B Medicare Part B [id number] 2013 Unknown AARP Medicare Part B [id number] 2013 Unknown Family history Father Diagnosis Age At Onset Cancer Unknown Mother Diagnosis Age At Onset Cancer Unknown Sister Diagnosis Age At Onset Cancer Unknown Brother Diagnosis Age At Onset Cancer Unknown Social History Social History Element Codes Description Effective Dates Marital status Unknown 03/15/2011 Living arrangements Unknown House 03/15/[address]: 297434258 Never smoker 03/15/2011 Has the patient ever used illegal drugs? 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) drug therapy ICD-9: V58.69 ICD-10: Z79.899 [...] Fill Instructions lisinopril 20 mg tablet RxNorm: 671452 1 TABLET(S) PO DAILY 01/02/2017 05/31/2017 Active Zithromax Z-Claudio 250 mg tablet RxNorm: 883886 1 Tablet(s) PO UD 11/29/2016 12/03/2016 Inactive ZPACK Keflex 500 mg capsule RxNorm: 289662 1 Capsule(s) PO TID 11/23/2016 12/02/2016 Inactive guaifenesin 400 mg tablet RxNorm: 009150 1 Tablet(s) PO Q6 as needed 11/23/2016 11/27/2016 Inactive omeprazole 40 mg capsule,delayed release RxNorm: 274645 1 Capsule(s) PO QPM 11/02/2016 04/30/2017 Active digoxin 125 mcg tablet RxNorm: 699012 1 TABLET(S) PO DAILY 10/27/2016 07/23/2017 Active cyclobenzaprine 5 mg tablet RxNorm: 244495 1/2 Tablet(s) PO Q8 PRN 10/25/2016 No Stop Date Active prn muscle spasms Augmentin 500 mg-125 mg tablet RxNorm: 808911 1 Tablet(s) PO BID 10/24/2016 11/02/2016 Inactive spironolactone 25 mg tablet RxNorm: 228032 1 Tablet(s) PO daily 07/27/2016 02/21/2017 Active Lasix 20 mg tablet RxNorm: 638087 Tablet(s) PRN one to two times a week if needed 07/27/2016 No Stop Date Active Patient requests 90 days supply Diflucan 150 mg tablet RxNorm: 844945 1 Tablet(s) PO daily 07/27/2016 08/02/2016 Inactive lisinopril 20 mg tablet RxNorm: 445378 1 Tablet(s) PO daily 07/12/2016 01/01/2017 Inactive Lasix 20 mg tablet RxNorm: 084535 1 TABLET(S) PO EVERY OTHER DAY EVERY OTHER DAY 06/10/2016 07/26/2016 Inactive Patient requests 90 days supply potassium chloride ER 10 mEq capsule,extended release RxNorm: 217079 1 CAPSULE(S) PO EVERY OTHER DAY 06/10/2016 07/26/2016 Inactive Patient requests 90 days supply potassium chloride ER 10 mEq capsule,extended release RxNorm: 581615 1 Capsule(s) PO every other day 06/09/2016 06/09/2016 Inactive Lasix 20 mg tablet RxNorm: 479083 1 Tablet(s) PO every other day every other day 06/09/2016 06/09/2016 Inactive levothyroxine 88 mcg tablet RxNorm: 422910 1 Tablet(s) PO daily 05/11/2016 11/06/2016 Inactive Premarin 0.625 mg/gram vaginal cream RxNorm: 500203 1/2 Gram(s) VAG TIW 03/24/2016 03/18/2017 Active metoprolol succinate ER 50 mg tablet,extended release 24 hr RxNorm: 837529 1 Tablet(s) PO daily 03/24/2016 03/18/2017 Active pantoprazole 40 mg tablet,delayed release RxNorm: 114896 1 Tablet(s) PO daily 02/08/2016 11/01/2016 Inactive betamethasone dipropionate 0.05 % topical ointment RxNorm: 641262 1 Application TOP TID use topically on the rectal tissue three times daily x 1 week then as needed 02/02/2016 No Stop Date Active pantoprazole 40 mg tablet,delayed release RxNorm: 390577 1 Tablet(s) PO daily 2016 02/07/2016 Inactive alprazolam 0.25 mg tablet RxNorm: 158457 1 Tablet(s) PO Q6 as needed 12/04/2015 No Stop Date Active Vesicare 10 mg tablet RxNorm: 092113 1 Tablet(s) PO every other day 11/03/2015 No Stop Date Active alprazolam 0.25 mg tablet RxNorm: 606904 1 Tablet(s) PO Q6 as needed 11/03/2015 12/03/2015 Inactive Premarin 0.625 mg/gram vaginal cream RxNorm: 826217 1/2 Gram(s) VAG TIW 11/03/2015 03/23/2016 Inactive levothyroxine 88 mcg tablet RxNorm: 577009 1 Tablet(s) PO daily 11/03/2015 05/10/2016 Inactive Diflucan 150 mg tablet RxNorm: 470886 1 Tablet(s) PO daily 10/19/2015 10/25/2015 Inactive cetirizine 10 mg chewable tablet RxNorm: 1444223 1 Tablet(s) PO daily 10/13/2015 11/11/2015 Inactive cetirizine 10 mg capsule RxNorm: 3597554 1 Capsule(s) PO daily 10/13/2015 11/11/2015 Inactive Vesicare 10 mg tablet RxNorm: 999796 1/2 TABLET(S) PO BID 09/21/2015 11/02/2015 Inactive betamethasone dipropionate 0.05 % topical ointment RxNorm: 724014 1 Application TOP TID use topically on the rectal tissue three times daily x 1 week then as needed 09/15/2015 02/01/2016 Inactive lisinopril 20 mg tablet RxNorm: 920376 1 Tablet(s) PO daily 09/01/2015 07/11/2016 Inactive digoxin 125 mcg tablet RxNorm: 669781 1 Tablet(s) PO daily 09/01/2015 08/25/2016 Inactive Augmentin 500 mg-125 mg tablet RxNorm: 937782 1 Tablet(s) PO TID 05/26/2015 06/04/2015 Inactive Pyridium 200 mg tablet RxNorm: 1694533 1 Tablet(s) PO TID 05/26/2015 05/27/2015 Inactive levothyroxine 88 mcg tablet RxNorm: 024727 1 Tablet(s) PO daily except 1/2 pill on monday and 05/07/2015 11/02/2015 Inactive digoxin 125 mcg tablet RxNorm: 271485 1 Tablet(s) PO daily 05/07/2015 08/31/2015 Inactive lisinopril 20 mg tablet RxNorm: 430245 1 TABLET(S) PO BID 04/13/2015 09/01/2015 Inactive Coumadin 1 mg tablet RxNorm: 269437 1 TABLET(S) PO DAILY 03/31/2015 08/31/2015 Inactive Coumadin 2 mg tablet RxNorm: 657332 4MG IN AM AND 1MG AT NIGHT TABLET(S) PO DAILY DIRECTED. 03/31/2015 08/31/2015 Inactive levothyroxine 88 mcg tablet RxNorm: 012578 1 Tablet(s) PO daily 03/23/2015 05/06/2015 Inactive alprazolam 0.25 mg tablet RxNorm: 927240 Tablet(s) PO 03/23/2015 04/06/2015 Inactive levothyroxine 88 mcg tablet RxNorm: 253431 1 Tablet(s) PO daily 01/28/2015 03/22/2015 Inactive levothyroxine 88 mcg tablet RxNorm: 449379 1 Tablet(s) PO daily 01/28/2015 01/27/2015 Inactive diltiazem ER 120 mg capsule,extended release RxNorm: 199498 1 Capsule(s) PO BID patient would like 4 months at a time 01/06/2015 09/28/2015 Inactive digoxin 125 mcg tablet RxNorm: 504911 Tablet(s) 1 TABLET(S) PO DAILY 12/24/2014 12/23/2014 Inactive pt will be paying palomares (On $4 list)Patient requests 90 days supply digoxin 125 mcg tablet RxNorm: 934684 Tablet(s) 1 TABLET(S) PO DAILY M W F Sat and 2 tabs on T TH 12/24/2014 05/06/2015 Inactive pt will be paying palomares (On $4 list)Patient requests 90 days supply dicyclomine 20 mg tablet RxNorm: 281335 1 Tablet(s) PO daily 11/17/2014 08/31/2015 Inactive one ac dinner and up to tid prn levothyroxine 88 mcg tablet RxNorm: 192151 1 Tablet(s) PO daily 11/03/2014 01/27/2015 Inactive Premarin 0.625 mg/gram vaginal cream RxNorm: 479816 1 APPLICATION VAG 1 APPLICATOR PER VAGINA 3 TIMES PER WEEK 11/03/2014 07/30/2015 Inactive digoxin 125 mcg tablet RxNorm: 377613 1 TABLET(S) PO DAILY 09/29/2014 12/23/2014 Inactive pt will be paying palomares (On $4 list)Patient requests 90 days supply digoxin 125 mcg tablet RxNorm: 516999 1 TABLET(S) PO DAILY 07/11/2014 04/06/2015 Inactive Vesicare 10 mg tablet RxNorm: 523473 1/2 Tablet(s) PO BID 05/20/2014 05/14/2015 Inactive Levaquin 500 mg tablet RxNorm: 243438 1 Tablet(s) PO daily 05/06/2014 05/08/2014 Inactive take probiotic BID while on ABT Levaquin 500 mg tablet RxNorm: 931492 1 Tablet(s) PO daily 05/02/2014 05/05/2014 Inactive take probiotic BID while on ABT diltiazem ER 120 mg capsule,extended release RxNorm: 369769 1 Capsule(s) PO BID patient would like 4 months at a time 04/29/2014 2015 Inactive Vesicare 10 mg tablet RxNorm: 919967 1/2 Tablet(s) PO BID 04/29/2014 05/19/2014 Inactive lisinopril 20 mg tablet RxNorm: 547080 1 Tablet(s) PO BID 03/20/2014 03/14/2015 Inactive diltiazem 90 mg tablet RxNorm: 040296 1/2 TABLET(S) PO QPM 03/04/2014 04/28/2014 Inactive also 180 q am diltiazem ER 120 mg capsule,extended release RxNorm: 015420 1 Capsule(s) PO daily patient would like 4 months at a time 01/29/2014 04/28/2014 Inactive Vesicare 10 mg tablet RxNorm: 873349 1 Tablet(s) PO QHS 01/14/2014 04/28/2014 Inactive Coumadin 2 mg tablet RxNorm: 985377 4mg in AM and 1mg at night Tablet(s) PO daily as directed. 12/25/2013 03/30/2015 Inactive Metanx 3 mg-35 mg-2 mg tablet RxNorm: 1 Tablet(s) PO daily 12/25/2013 11/02/2015 Inactive digoxin 125 mcg tablet RxNorm: 714782 1 Tablet(s) PO daily 12/25/2013 09/28/2014 Inactive pt will be paying palomares (On $4 list) Coumadin 2 mg tablet RxNorm: 855828 7.5 wed 5mg other Tablet(s) PO as directed. 12/03/2013 12/24/2013 Inactive omeprazole 20 mg tablet,delayed release RxNorm: 921213 1 Tablet(s) PO BID 11/27/2013 04/28/2014 Inactive Coumadin 2 mg tablet RxNorm: 495684 5 mg daily Tablet(s) PO as directed. 11/26/2013 12/02/2013 Inactive 5 mg daily Xanax 0.25 mg tablet RxNorm: 772487 1 Tablet(s) PO Q6 PRN 11/11/2013 12/25/2013 Inactive alprazolam 0.25 mg tablet RxNorm: 450793 tablet oral 11/11/2013 03/22/2015 Inactive sucralfate 1 gram tablet RxNorm: 882053 1 Tablet(s) PO AC & HS 11/04/2013 11/03/2013 Inactive sucralfate 1 gram tablet RxNorm: 524837 1 Tablet(s) PO AC & HS 11/04/2013 01/02/2014 Inactive Synthroid 100 mcg tablet RxNorm: 182493 1 Tablet(s) PO daily 10/31/2013 10/25/2014 Inactive Synthroid 100 mcg tablet RxNorm: 460829 1 Tablet(s) PO daily 09/30/2013 10/29/2013 Inactive Vesicare 10 mg tablet RxNorm: 799171 1 Tablet(s) PO QHS 09/30/2013 01/13/2014 Inactive Lotemax 0.5 % eye ointment RxNorm: 4815718 ointment opht 09/06/2013 12/10/2013 Inactive levothyroxine 100 mcg tablet RxNorm: 985033 tablet oral 09/05/2013 11/02/2014 Inactive Synthroid 100 mcg tablet RxNorm: 135578 1 Tablet(s) PO daily 09/05/2013 09/29/2013 Inactive Prolia 60 mg/mL Sub-Q Syringe RxNorm: 124431 1 Milliliter(s) SQ 06/25/2013 11/02/2015 Inactive dicyclomine 20 mg tablet RxNorm: 382650 1 Tablet(s) PO daily 06/24/2013 06/18/2014 Inactive one ac dinner and up to tid prn omeprazole 20 mg tablet,delayed release RxNorm: 223060 1 Tablet(s) PO BID 06/24/2013 11/26/2013 Inactive Cipro 500 mg tablet RxNorm: 360063 1 Tablet(s) PO BID 06/20/2013 06/26/2013 Inactive diltiazem ER 120 mg capsule,extended release RxNorm: 449368 1 Capsule(s) PO daily patient would like 4 months at a time 06/03/2013 01/28/2014 Inactive Coumadin 2 mg tablet RxNorm: 016195 as directed Tablet(s) PO as directed. 05/29/2013 11/25/2013 Inactive 5 mg daily Synthroid 88 mcg tablet RxNorm: 045037 1 Tablet(s) PO daily 04/24/2013 04/23/2013 Inactive Synthroid 88 mcg tablet RxNorm: 549787 1 Tablet(s) PO daily 04/24/2013 07/28/2013 Inactive Premarin 0.625 mg/gram vaginal cream RxNorm: 215429 1 Application VAG 1 applicator per vagina 3 times per week 04/23/2013 04/17/2014 Inactive Influenza Virus Vaccine 0.5 mL RxNorm: IM 04/23/2013 04/23/2013 Inactive digoxin 125 mcg tablet RxNorm: 144544 1 Tablet(s) PO daily 02/20/2013 04/20/2013 Inactive pt will be paying palomares (On $4 list) Digox 125 mcg tablet RxNorm: 3132016 tablet oral 02/13/2013 03/20/2014 Inactive digoxin 125 mcg tablet RxNorm: 898214 1 Tablet(s) PO daily 02/13/2013 02/19/2013 Inactive diltiazem 90 mg tablet RxNorm: 149754 1/2 Tablet(s) PO QPM 02/13/2013 02/07/2014 Inactive also 180 q am Levoxyl 75 mcg tablet RxNorm: 319324 1 Tablet(s) PO 01/16/2013 04/23/2013 Inactive Coumadin 2 mg tablet RxNorm: 707502 6mg daily except 3mg on wed and fri Tablet(s) PO 01/15/2013 05/28/2013 Inactive 5 mg daily Coumadin 2 mg tablet RxNorm: 922516 6mg daily Tablet(s) PO 12/21/2012 01/14/2013 Inactive 5 mg daily silver sulfadiazine 1 % Topical Cream RxNorm: 509299 TOP apply to affected area with each dressing change 12/19/2012 12/25/2013 Inactive cephalexin 500 mg tablet RxNorm: 172300 1 Tablet(s) PO TID 12/11/2012 12/17/2012 Inactive digoxin 125 mcg tablet RxNorm: 8301220 1 Tablet(s) PO daily 10/30/2012 02/12/2013 Inactive digoxin 125 mcg tablet RxNorm: 0990990 2 tab tue thurs one other days Tablet(s) PO daily 10/23/2012 10/29/2012 Inactive lisinopril 10 mg tablet RxNorm: 047451 1 Tablet(s) PO daily 10/17/2012 08/14/2013 Inactive Cipro 500 mg tablet RxNorm: 875267 1 Tablet(s) PO BID 09/13/2012 09/19/2012 Inactive Coumadin 1 mg tablet RxNorm: 444165 1 Tablet(s) PO daily 09/03/2012 09/02/2012 Inactive Coumadin 1 mg tablet RxNorm: 725529 1 Tablet(s) PO daily 09/03/2012 12/21/2012 Inactive Coumadin 2 mg tablet RxNorm: 292369 Tablet(s) PO 07/25/2012 12/20/2012 Inactive 5 mg daily digoxin 125 mcg tablet RxNorm: 0368618 1 Tablet(s) PO daily 06/28/2012 10/22/2012 Inactive Coumadin 2 mg tablet RxNorm: 783394 Tablet(s) PO 06/27/2012 07/24/2012 Inactive 5mg daily except 4mg on monday Coumadin 2 mg tablet RxNorm: 988982 Tablet(s) PO 06/19/2012 06/26/2012 Inactive 5mg tue wed thur sat sun4mg mond(has 2mg and 1 mg tab) digoxin 125 mcg tablet RxNorm: 1809687 1 Tablet(s) PO daily 05/29/2012 06/27/2012 Inactive Coumadin 2 mg tablet RxNorm: 830429 Tablet(s) PO 05/15/2012 06/18/2012 Inactive 5mg tue thur sat sun4mg mon frid(has 2mg and 1 mg tab) Coumadin 2 mg tablet RxNorm: 925254 Tablet(s) PO 04/25/2012 05/14/2012 Inactive 5mg tue thru sat4mg mon frid sun(has 2mg and 1 mg tab) Metanx 3 mg-35 mg-2 mg tablet RxNorm: 1 Tablet(s) PO BID 04/18/2012 12/24/2013 Inactive dicyclomine 20 mg tablet RxNorm: 796535 1 Tablet(s) PO 04/18/2012 06/23/2013 Inactive one ac dinner and up to tid prn digoxin 125 mcg tablet RxNorm: 4529748 Tablet(s) PO daily except .25 on Tuesdays and 04/09/2012 05/28/2012 Inactive omeprazole 20 mg tablet,delayed release RxNorm: 275002 1 Tablet(s) PO BID 04/09/2012 04/03/2013 Inactive digoxin 125 mcg tablet RxNorm: 0493290 1 Tablet(s) PO UD daily except none on Tuesdays and 03/13/2012 04/08/2012 Inactive Premarin 0.625 mg/gram Vaginal Cream RxNorm: 683047 1 Application VAG 1 applicator per vagina 3 times per week 02/20/2012 02/13/2013 Inactive omeprazole 20 mg tablet,delayed release RxNorm: 021110 1 Tablet(s) PO BID 02/13/2012 04/08/2012 Inactive Vesicare 10 mg tablet RxNorm: 219264 1 Tablet(s) PO QHS 02/13/2012 02/06/2013 Inactive Diflucan 150 mg tablet RxNorm: 945607 1 Tablet(s) PO daily 02/13/2012 02/19/2012 Inactive omeprazole 20 mg tablet,delayed release RxNorm: 681775 1 Tablet(s) PO BID 01/06/2012 02/12/2012 Inactive Calcium 600 + D(3) 600 mg (1,500)-200 unit Tab RxNorm: 781613 2 Tablet(s) PO BID 01/06/2012 08/31/2015 Inactive diltiazem 90 mg tablet RxNorm: 520829 1/2 Tablet(s) PO QPM 12/26/2011 02/12/2013 Inactive also 180 q am diltiazem ER 180 mg Cap RxNorm: 703250 1 Capsule(s) PO QAM 12/26/2011 04/08/2012 Inactive 45mg q hs Flagyl 500 mg Tab RxNorm: 878100 1 Tablet(s) PO BID 12/14/2011 12/20/2011 Inactive dicyclomine 10 mg Cap RxNorm: 555948 1 Capsule(s) PO AC & HS 12/01/2011 12/25/2011 Inactive Levaquin 500 mg Tab RxNorm: 653011 1 Tablet(s) PO daily 11/23/2011 11/29/2011 Inactive Rocephin 500 mg Solution for Injection RxNorm: 917823 Inj 11/23/2011 11/23/2011 Inactive acyclovir 400 mg Tab RxNorm: 002778 1 Tablet(s) PO QID 11/10/2011 11/19/2011 Inactive acyclovir 400 mg Tab RxNorm: 468517 1 Tablet(s) PO QID 11/10/2011 11/09/2011 Inactive lisinopril 20 mg Tab RxNorm: 720331 1 Tablet(s) PO daily 10/03/2011 11/27/2011 Inactive lisinopril 20 mg Tab RxNorm: 839847 1 Tablet(s) PO daily 08/08/2011 10/02/2011 Inactive Reclast 5 mg/100 mL IV RxNorm: 603313 Milliliter(s) IV Yearly 06/08/2011 01/16/[address] Hansen manages Rocephin 500 mg Solution for Injection RxNorm: 946821 1 Milliliter(s) Inj 03/04/2011 08/08/2011 Inactive Ceftin 500 mg Tab RxNorm: 347814 1 Tablet(s) PO BID 03/04/2011 08/08/2011 Inactive Vitamin D3 1,000 unit tablet RxNorm: 024187 2 Tablet(s) PO daily No Start Date Active Carafate 100 mg/mL oral suspension RxNorm: 887179 2 Teaspoon(s) PO as needed with reflux symptoms No Start Date Active Stool Softener 100 mg tablet RxNorm: 0961995 2 Tablet(s) PO QHS No Start Date Active Beano tablet RxNorm: 2-3 Tablet(s) PO as needed No Start Date Active Probiotic Pearls 15 mg (1 billion cell) capsule,delayed release RxNorm: 1 Capsule(s) PO daily No Start Date Active Miralax 17 gram oral powder packet RxNorm: 918008 1/2 packet PO QHS No Start Date Active Eliquis 2.5 mg tablet RxNorm: 0058433 1 Tablet(s) PO BID No Start Date Active multivitamin Tab RxNorm: 1 Tablet(s) PO daily No Start Date Active Tylenol Extra Strength 500 mg tablet RxNorm: 914448 2 Tablet(s) PO as needed No Start Date Active Combigan 0.2 %-0.5 % eye drops RxNorm: 427737 1 Drop(s) OPH BID No Start Date Active 1 drop twice daily left eye Lexapro 5 mg tablet RxNorm: 188374 1 Tablet(s) PO daily No Start Date Active Tatiana Allergy 180 mg tablet RxNorm: 728277 1 Tablet(s) PO daily No Start Date Active Symbicort 160 mcg-4.5 mcg/actuation HFA aerosol inhaler RxNorm: 0546497 2 Puff(s) INH BID No Start Date Active Lotemax 0.5 % eye drops,suspension RxNorm: 906232 1 Drop(s) OPH right eye BID No Start Date Active Levoxyl 50 mcg tablet RxNorm: 213191 1 Tablet(s) PO daily No Start Date 01/15/2013 Inactive lisinopril-hydrochlorothiazide 20 mg-25 mg Tab RxNorm: 797633 1 Tablet(s) PO daily No Start Date 08/07/2011 Inactive Metanx 3 mg-35 mg-2 mg tablet RxNorm: 1 Tablet(s) PO daily No Start Date 04/17/2012 Inactive diltiazem CD 120 mg capsule,extended release 24 hr RxNorm: 171481 1 Capsule(s) PO daily No Start Date 09/28/2015 Inactive lisinopril 20 mg tablet RxNorm: 291966 Tablet(s) PO No Start Date Active Lumigan 0.01 % Eye Drops RxNorm: 7462993 1 Drop(s) OPH daily Left eye No Start Date 12/10/2013 Inactive prednisolone acetate 1 % Eye Drops, Susp RxNorm: 6451175 1 Drop(s) OPH BID 1 drop right eye am and hs No Start Date 11/02/2015 Inactive Eliquis 5 mg tablet RxNorm: 4105430 1 Tablet(s) PO BID No Start Date 06/08/2016 Inactive potassium gluconate (bulk) Misc RxNorm: Miscellaneous No Start Date 12/25/2011 Inactive Calcium 600 + D(3) 600 mg (1,500)-200 unit Tab RxNorm: 150635 3 Tablet(s) PO daily No Start Date 2012 Inactive Zyrtec 10 mg tablet RxNorm: 5035705 1 Tablet(s) PO daily No Start Date 08/02/2016 Inactive Synthroid 100 mcg tablet RxNorm: 267092 1 Tablet(s) PO daily No Start Date 09/04/2013 Inactive metoprolol succinate ER 50 mg tablet,extended release 24 hr RxNorm: 752280 1 Tablet(s) PO daily No Start Date 03/23/2016 Inactive Metanx 3 mg-35 mg-2 mg tablet RxNorm: 1 Tablet(s) PO daily 2pm No Start Date 11/02/2015 Inactive Lexapro 5 mg tablet RxNorm: 453275 1 Tablet(s) PO daily No Start Date 08/18/2015 Inactive Iron (dried) oral RxNorm: 41680 oral No Start Date 11/02/2015 Inactive timolol 0.5 % Eye Drops RxNorm: 842557 1 Drop(s) OPH daily left eye No Start Date 12/18/2013 Inactive multivitamin Cap RxNorm: 1 Capsule(s) PO daily No Start Date 12/25/2011 Inactive dicyclomine 10 mg Cap RxNorm: 907014 2 Capsule(s) PO daily No Start Date 11/30/2011 Inactive silver sulfadiazine 1 % Topical Cream RxNorm: 403254 TOP apply to affected area with each dressing change No Start Date 12/18/2012 Inactive magnesium oxide 400 mg Tab RxNorm: 414852 1 Tablet(s) PO daily No Start Date 11/02/2015 Inactive Pradaxa 75 mg Cap RxNorm: 4532857 1 Capsule(s) PO BID No Start Date 04/09/2012 Inactive magnesium oxide 400 mg Tab RxNorm: 918510 2 Tablet(s) PO daily magnesium plus zinc No Start Date 12/25/2011 Inactive biotin 1000 mg RxNorm: 1 PO daily No Start Date 12/25/2011 Inactive Synthroid 50 mcg Tab RxNorm: 709256 Tablet(s) PO No Start Date 12/25/2011 Inactive diltiazem ER 180 mg Cap RxNorm: 893307 1 Capsule(s) PO daily No Start Date 12/25/2011 Inactive 1 D 3 1000 iu Oral RxNorm: Oral No Start Date 12/25/2011 Inactive Coumadin 2 mg tablet RxNorm: 876301 Tablet(s) PO No Start Date 04/24/2012 Inactive 5mg tue [id number] mon sat sun(has 2mg and 1 mg tab) dicyclomine 20 mg tablet RxNorm: 355314 Tablet(s) PO No Start Date 04/17/2012 Inactive one ac dinner and up to tid prn lactobacillus acidophilus tablet RxNorm: 1 Tablet(s) PO daily No Start Date 11/03/2015 Inactive Levoxyl 75 mcg Tab RxNorm: 111253 1 Tablet(s) PO daily No Start Date 10/02/2011 Inactive digoxin 125 mcg tablet RxNorm: 7912138 1 Tablet(s) PO daily No Start Date 03/12/2012 Inactive pantoprazole 40 mg tablet,delayed release RxNorm: 499343 1 Tablet(s) PO BID No Start Date 01/04/2016 Inactive cyclobenzaprine 5 mg tablet RxNorm: 360438 1/2 Tablet(s) PO Q8 PRN No Start Date 10/24/2016 Inactive diltiazem 90 mg Tab RxNorm: 401417 1/2 Tablet(s) PO QPM No Start Date 12/25/2011 Inactive Mirapex 1 mg Tab RxNorm: 359723 1 Tablet(s) PO QHS No Start Date 12/25/2011 Inactive Xanax 0.25 mg tablet RxNorm: 768450 1 Tablet(s) PO Q6 PRN No Start Date 11/10/2013 Inactive Premarin 0.625 mg/gram Vaginal Cream RxNorm: 387964 1 Application VAG 1 applicator per vagina 3 times per week No Start Date 02/19/2012 Inactive Synthroid 75 mcg Tab RxNorm: 805688 1 Tablet(s) PO daily No Start Date 04/17/2012 Inactive lisinopril 40 mg Tab RxNorm: 950968 1 Tablet(s) PO daily No Start Date 12/25/2011 Inactive Glucosamine Chondroitin Complex Advanced [id number]-1.65mg Tab RxNorm: 2 Tablet(s) PO daily No Start Date 08/08/2011 Inactive famotidine 20 mg tablet RxNorm: 288253 1 Tablet(s) PO QAM No Start Date 11/02/2015 Inactive cranberry extract 250 mg Tab RxNorm: 240221 2 Tablet(s) PO daily No Start Date 08/08/2011 Inactive Vitamin D3 1,000 unit capsule RxNorm: 621146 1 Capsule(s) PO daily No Start Date 08/31/2015 Inactive aspirin 81 mg Tab, Delayed Release RxNorm: 766936 1 Tablet(s) PO daily No Start Date 08/31/2015 Inactive diltiazem ER 120 mg capsule,extended release RxNorm: 595447 1 Capsule(s) PO daily patient would like 4 months at a time No Start Date 06/02/2013 Inactive omeprazole 20 mg Tab, Delayed Release RxNorm: 243630 2 Tablet(s) PO QHS No Start Date 2012 Inactive lisinopril 10 mg tablet RxNorm: 535161 1/2 Tablet(s) PO daily No Start Date 10/16/2012 Inactive Pred Forte 1 % Eye Drops RxNorm: 387585 1 Drop(s) OPH daily right eye No Start Date 12/25/2013 Inactive calcium carbonate 400 mg Chewable Tab RxNorm: 441438 1 Tablet(s) PO daily No Start Date 08/08/2011 Inactive Vesicare 10 mg tablet RxNorm: 515659 1 Tablet(s) PO QHS No Start Date 02/12/2012 Inactive potassium 99 mg tablet RxNorm: 1 Tablet(s) PO QPM No Start Date 12/25/2013 Inactive timolol 0.25 % Eye Drops RxNorm: 605724 1 Drop(s) OPH daily Left eye No Start Date 04/17/2012 Inactive diltiazem ER 90 mg capsule,extended release 12 hr RxNorm: 360399 1/2 Capsule(s) PO QPM No Start Date 04/28/2014 Inactive cyclobenzaprine 5 mg Tab RxNorm: 936284 1/2-1 Tablet(s) PO Q8 PRN No Start Date 12/25/2011 Inactive 1/2 - 1 tab q 8hrs prn muscle spasms Medication Administered Medication Codes Instructions Start Date Status Influenza Virus Vaccine 0.5 mL RxNorm: 04/23/2013 No longer Active Rocephin 500 mg Solution for Injection RxNorm: 517727 11/23/2011 No longer Active Immunizations Vaccine Codes Date Status Influenza CVX: 141 03/24/2016 completed PPD Unknown 10/19/2015 completed Pneumococcal (Adult) CVX: 133 05/13/2015 completed Pneumococcal (Adult) CVX: 133 05/13/2015 completed Pneumococcal (Adult) CVX: 33 07/11/2014 completed Influenza CVX: 141 03/20/2014 completed Influenza CVX: 141 04/23/2013 completed Influenza CVX: 141 04/18/2012 completed Assessments Condition Codes Effective Dates Dysphonia ICD-10: R49.0 ICD-9: 784.42 01/19/2017 Chronic [...] K64.0 ICD-9: 455.6 03/24/2016 Other termite exterminator (current) drug therapy ICD-10: Z79.899 ICD-9: [...] Visit Reason For Visit Effective Dates Notes fatigue 01/19/2017 sore throat 11/29/2016 sore throat [...] Code Result Date C RAP A SC [id number] Strep A Negative 11/21/2016 Thyroid Antibodies 078403 THYROGLOBULIN ANTIBODY . 11/04/2016 Thyroid Antibodies 284599 THYROGLOBULIN ANTIBODY 919 IU/mL 11/04/2016 Thyroid Antibodies 113752 THYROID PEROXIDASE (TPO) AB . 11/04/2016 Thyroid Antibodies 755896 THYROID PEROXIDASE (TPO) AB 10 IU/mL 11/04/2016 Total T3 Ord42 TT3 0.64 ng/ml 11/03/2016 Free T4 [id number] FREE T4 1.39 ng/dL 11/02/2016 Tsh Ord6 [...] Differential Ord2 RDW 13.8 % 05/26/2015 Pt [id number] PT 25.0 seconds 05/26/2015 Pt Sbw1177 INR 2.4 05/26/2015 Pt Mht3958 Low Intensity - 1.5-2.0 05/26/2015 Pt Bae6064 Mod intensity - 2.0-3.0 05/26/2015 Pt Fxi7393 Hi intensity - 3.0-4.0 05/26/2015 Uric Acid [...] Digoxin Ord9 DIGOXIN 0.6 NG/ML 05/06/2015 Pt Kza5533 PT 23.3 seconds 05/06/2015 Pt Oyj2197 INR 2.1 05/06/2015 Pt Pie8387 Low Intensity - 1.5-2.0 05/06/2015 Pt Acp2502 Mod intensity - 2.0-3.0 05/06/2015 Pt Zkp9027 Hi intensity - 3.0-4.0 05/06/2015 Free T4 Hby636 FREE T4 1.65 ng/dL 05/06/2015 Comp Metabolic Umk657 NA 132 mEq/L 05/06/2015 Comp Metabolic Hul202 K 4.1 mEq/L 05/06/2015 Comp Metabolic Njg181 CL 98 mEq/L 05/06/2015 Comp Metabolic Bac155 CO2 27.0 mEq/L 05/06/2015 Comp Metabolic Loo819 ANION GAP 11 05/06/2015 Comp Metabolic Rvn741 GLUCOSE 71 mg/dL 05/06/2015 Comp Metabolic Pyg958 Creat 0.7 mg/dL 05/06/2015 Comp Metabolic Tjl002 eGFR 82 ml/min/1.73m2 05/06/2015 Comp Metabolic Tmg997 BUN 16 mg/dL 05/06/2015 Comp Metabolic Lwf342 B/C Ratio 22.2 Ratio 05/06/2015 Comp Metabolic Rtv597 CALCIUM 9.4 mg/dL 05/06/2015 Comp Metabolic Bhv251 ALK PHOS 60 U/L 05/06/2015 Comp Metabolic Spj252 AST(SGOT) 22 U/L 05/06/2015 Comp Metabolic Zaj559 ALT(SGPT) 24 U/L 05/06/2015 Comp Metabolic Hdg268 BILI T 0.8 mg/dL 05/06/2015 Comp Metabolic Gtn875 ALBUMIN 4.3 g/dL 05/06/2015 Comp Metabolic Myl015 TPRO 7.6 g/dL 05/06/2015 Comp Metabolic Ati000 GLOB 3.3 g/dL 05/06/2015 Comp Metabolic Wuo087 A/G Ratio 1.3 Ratio 05/06/2015 Comp Metabolic Tri637 Osmo 264 mOsmo 05/06/2015 DIGOXIN 2329978 DIGOXIN 1.1 NG/ML 05/15/2013 PT/MC 2082136 PRO TIME 21.7 SEC 05/15/2013 PT/MC 1513279 INR MCMC 2.0 05/15/2013 CHEM 14 2265692 AST 24 U/L 04/23/2013 CHEM 14 8240012 ALT 31 IU/L 04/23/2013 CHEM 14 7838727 BUN 13 MG/DL 04/23/2013 CHEM 14 8744567 ALBUMIN 4.1 GM/DL 04/23/2013 CHEM 14 5810064 CHLORIDE 103 MMOL/L 04/23/2013 CHEM 14 3214974 BILI TOT 0.5 MG/DL 04/23/2013 CHEM 14 5992482 ALK PHOS 44 U/L 04/23/2013 CHEM 14 4063789 SODIUM 137 MMOL/L 04/23/2013 CHEM 14 4300042 CREATININE 0.61 MG/DL 04/23/2013 CHEM 14 5153602 CALCIUM 9.5 MG/DL 04/23/2013 CHEM 14 4960365 POTASSIUM 4.0 MMOL/L 04/23/2013 CHEM 14 5764825 PROT TOT 6.6 GM/DL 04/23/2013 CHEM 14 9123517 GLUCOSE 99 MG/DL 04/23/2013 CHEM 14 1144629 BICARB 27 MMOL/L 04/23/2013 CHEM 14 9000579 ANION GAP 7 MEQ/L 04/23/2013 GFR CALC 6897893 GFR AA >60 ML/MIN 04/23/2013 GFR CALC 4949385 GFR NON-AA >60 ML/MIN 04/23/2013 TSH 5673908 TSH 4.204 uIU/ML 04/23/2013 CBC 4559449 WBC 6.7 10e9/L 04/23/2013 CBC 8328236 RBC 4.19 10e12/L 04/23/2013 CBC 0287665 HGB 13.2 g/dL 04/23/2013 CBC 0503307 HCT DET 39.2 % 04/23/2013 CBC 9723636 MCV 93.6 fL 04/23/2013 CBC 3644036 MCH 31.5 pg 04/23/2013 CBC 5609727 MCHC 33.7 g/dL 04/23/2013 CBC 3554567 PLT 202 10e9/L 04/23/2013 CBC 3547279 MPV 11.4 fL 04/23/2013 CBC 4930341 YANIRA % 70.5 % 04/23/2013 CBC 9159837 LY % 19.6 % 04/23/2013 CBC 1479832 MON % 8.2 % 04/23/2013 CBC 4415743 EOS % 1.6 % 04/23/2013 CBC 9841941 BASO % 0.1 % 04/23/2013 CBC 7219499 RDW 13.7 % 04/23/2013 CBC 6955672 ABS YANIRA 4.72 10e9/L 04/23/2013 CBC 8076578 ABS LYMPH 1.31 10e9/L 04/23/2013 CBC 8923635 ABS MONO 0.55 10e9/L 04/23/2013 CBC 6453339 ABS EOS 0.11 10e9/L 04/23/2013 CBC 7821924 ABS BASO 0.01 10e9/L 04/23/2013 CBC 3961784 RDW-SD 45.7 fL 04/23/2013 PT/MC 6878569 PRO TIME 13.4 SEC 12/17/2012 PT/MC 0664076 INR MCMC 1.0 12/17/2012 PT/MC 0681632 PRO TIME 16.6 SEC 12/14/2012 PT/MC 4094700 INR MCMC 1.4 12/14/2012 PT/MC 9311154 PRO TIME 27.2 SEC 12/11/2012 PT/MC 4312783 INR MCMC 2.6 12/11/2012 DIGOXIN 3540931 DIGOXIN 2.1 NG/ML 03/08/2012 GFR CALC 5752665 GFR AA >60 ML/MIN 03/08/2012 GFR CALC 7901829 GFR NON-AA >60 ML/MIN 03/08/2012 CHEM 14 5633171 AST 16 U/L 03/08/2012 CHEM 14 2779590 ALT 14 IU/L 03/08/2012 CHEM 14 5425868 BUN 10 MG/DL 03/08/2012 CHEM 14 8805064 ALBUMIN 4.2 GM/DL 03/08/2012 CHEM 14 5921482 CHLORIDE 100 MMOL/L 03/08/2012 CHEM 14 0759056 BILI TOT 0.5 MG/DL 03/08/2012 CHEM 14 3055275 ALK PHOS 59 U/L 03/08/2012 CHEM 14 3797111 SODIUM 136 MMOL/L 03/08/2012 CHEM 14 9571544 CREATININE 0.65 MG/DL 03/08/2012 CHEM 14 6946854 CALCIUM 9.4 MG/DL 03/08/2012 CHEM 14 1242052 POTASSIUM 3.9 MMOL/L 03/08/2012 CHEM 14 1108380 PROT TOT 6.7 GM/DL 03/08/2012 CHEM 14 1693985 GLUCOSE 90 MG/DL 03/08/2012 CHEM 14 3548979 BICARB 30 MMOL/L 03/08/2012 CHEM 14 6261782 ANION GAP 6 MEQ/L 03/08/2012 CHEM 14 4637586 AST 16 U/L 11/23/2011 CHEM 14 6980434 ALT 14 IU/L 11/23/2011 CHEM 14 5806540 BUN 11 MG/DL 11/23/2011 CHEM 14 8965542 ALBUMIN 4.1 GM/DL 11/23/2011 CHEM 14 8695118 CHLORIDE 100 MMOL/L 11/23/2011 CHEM 14 2071181 BILI TOT 0.5 MG/DL 11/23/2011 CHEM 14 1330598 ALK PHOS 50 U/L 11/23/2011 CHEM 14 3638830 SODIUM 135 MMOL/L 11/23/2011 CHEM 14 9432853 CREATININE 0.57 MG/DL 11/23/2011 CHEM 14 6875645 CALCIUM 9.1 MG/DL 11/23/2011 CHEM 14 7620001 POTASSIUM 4.5 MMOL/L 11/23/2011 CHEM 14 3813297 PROT TOT 6.5 GM/DL 11/23/2011 CHEM 14 2266645 GLUCOSE 89 MG/DL 11/23/2011 CHEM 14 9384834 BICARB 28 MMOL/L 11/23/2011 CHEM 14 5757986 ANION GAP 7 MEQ/L 11/23/2011 GFR CALC 7255516 GFR AA >60 ML/MIN 11/23/2011 GFR CALC 2432994 GFR NON-AA >60 ML/MIN 11/23/2011 CBC 2576753 WBC 5.1 10e9/L 11/23/2011 CBC 1144946 RBC 4.06 10e12/L 11/23/2011 CBC 8573363 HGB 12.5 g/dL 11/23/2011 CBC 8712066 HCT DET 37.3 % 11/23/2011 CBC 8936160 MCV 91.9 fL 11/23/2011 CBC 1756073 MCH 30.8 pg 11/23/2011 CBC 1853207 MCHC 33.5 g/dL 11/23/2011 CBC 9718401 PLT 222 10e9/L 11/23/2011 CBC 0369584 MPV 10.8 fL 11/23/2011 CBC 3701861 YANIRA % 64.2 % 11/23/2011 CBC 5433906 LY % 22.3 % 11/23/2011 CBC 6035738 MON % 11.3 % 11/23/2011 CBC 1102803 EOS % 1.8 % 11/23/2011 CBC 0308201 BASO % 0.4 % 11/23/2011 CBC 3696440 RDW 13.6 % 11/23/2011 CBC 3218317 ABS YANIRA 3.27 10e9/L 11/23/2011 CBC 0082041 ABS LYMPH 1.14 10e9/L 11/23/2011 CBC 7655941 ABS MONO 0.58 10e9/L 11/23/2011 CBC 1771504 ABS EOS 0.09 10e9/L 11/23/2011 CBC 7331734 ABS BASO 0.02 10e9/L 11/23/2011 CBC 9097942 RDW-SD 44.5 fL 11/23/2011 UA 11250 Specific [place] 1.005 03/04/2011 UA 50654 PH 6 03/04/2011 UA 08156 GLUCOSE N 03/04/2011 UA 31942 Protein N 03/04/2011 UA 61546 Blood ++ 03/04/2011 UA 69191 Bilirubin N 03/04/2011 UA 63954 Ketones N 03/04/2011 UA 02782 Urobilinogen N 03/04/2011 UA 55982 Nitrite N 03/04/2011 UA 91957 Leukocytes N 03/04/2011 URINALYSIS NONAUTO W/O SCOPE 60807 [place] 1.010 DateTime(Free Text in Aprima) URINALYSIS NONAUTO W/O SCOPE 78292 PH 6.5 DateTime(Free Text in Aprima) URINALYSIS NONAUTO W/O SCOPE 35138 GLUCOSE neg DateTime(Free Text in Aprima) URINALYSIS NONAUTO W/O SCOPE 52321 Protein neg DateTime(Free Text in Aprima) URINALYSIS NONAUTO W/O SCOPE 99832 Blood 3+ DateTime(Free Text in Aprima) URINALYSIS NONAUTO W/O SCOPE 96669 Bilirubin neg DateTime(Free Text in Aprima) URINALYSIS NONAUTO W/O SCOPE 19274 Ketones neg DateTime(Free Text in Aprima) URINALYSIS NONAUTO W/O SCOPE 98445 Urobilinogen neg DateTime(Free Text in Aprima) URINALYSIS NONAUTO W/O SCOPE 08722 Nitrite neg DateTime(Free Text in Aprima) URINALYSIS NONAUTO W/O SCOPE 32945 Leukocytes neg DateTime(Free Text in Aprima) URINALYSIS NONAUTO W/O SCOPE 69565 [place] 1.010 DateTime(Free Text in Aprima) URINALYSIS NONAUTO W/O SCOPE 06286 PH 5 DateTime(Free Text in Aprima) URINALYSIS NONAUTO W/O SCOPE 33188 GLUCOSE neg DateTime(Free Text in Aprima) URINALYSIS NONAUTO W/O SCOPE 04711 Protein neg DateTime(Free Text in Aprima) URINALYSIS NONAUTO W/O SCOPE 98708 Blood 3+ DateTime(Free Text in Aprima) URINALYSIS NONAUTO W/O SCOPE 37278 Bilirubin neg DateTime(Free Text in Aprima) URINALYSIS NONAUTO W/O SCOPE 71132 Ketones neg DateTime(Free Text in Aprima) URINALYSIS NONAUTO W/O SCOPE 09646 Urobilinogen neg DateTime(Free Text in Aprima) URINALYSIS NONAUTO W/O SCOPE 40886 Nitrite neg DateTime(Free Text in Aprima) URINALYSIS NONAUTO W/O SCOPE 22180 Leukocytes neg DateTime(Free Text in Aprima) URINALYSIS NONAUTO W/O SCOPE 06384 [place] 1.005 DateTime(Free Text in Aprima) URINALYSIS NONAUTO W/O SCOPE 45082 PH 8.5 DateTime(Free Text in Aprima) URINALYSIS NONAUTO W/O SCOPE 84866 GLUCOSE neg DateTime(Free Text in Aprima) URINALYSIS NONAUTO W/O SCOPE 11891 Protein neg DateTime(Free Text in Aprima) URINALYSIS NONAUTO W/O SCOPE 91662 Blood 1+ DateTime(Free Text in Aprima) URINALYSIS NONAUTO W/O SCOPE 17605 Bilirubin neg DateTime(Free Text in Aprima) URINALYSIS NONAUTO W/O SCOPE 18256 Ketones neg DateTime(Free Text in Aprima) URINALYSIS NONAUTO W/O SCOPE 19584 Urobilinogen neg DateTime(Free Text in Aprima) URINALYSIS NONAUTO W/O SCOPE 27663 Nitrite neg DateTime(Free Text in Aprima) URINALYSIS NONAUTO W/O SCOPE 74305 Leukocytes neg DateTime(Free Text in Aprima) URINALYSIS NONAUTO W/O SCOPE 20955 [place] 1.005 DateTime(Free Text in Aprima) URINALYSIS NONAUTO W/O SCOPE 24798 PH 7 DateTime(Free Text in Aprima) URINALYSIS NONAUTO W/O SCOPE 10374 GLUCOSE neg DateTime(Free Text in Aprima) URINALYSIS NONAUTO W/O SCOPE 88868 Protein neg DateTime(Free Text in Aprima) URINALYSIS NONAUTO W/O SCOPE 40417 Blood large DateTime(Free Text in Aprima) URINALYSIS NONAUTO W/O SCOPE 20011 Bilirubin neg DateTime(Free Text in Aprima) URINALYSIS NONAUTO W/O SCOPE 35676 Ketones neg DateTime(Free Text in Aprima) URINALYSIS NONAUTO W/O SCOPE 54639 Urobilinogen 0.2 DateTime(Free Text in Aprima) URINALYSIS NONAUTO W/O SCOPE 16597 Nitrite neg DateTime(Free Text in Aprima) URINALYSIS NONAUTO W/O SCOPE 82446 Leukocytes neg DateTime(Free Text in Aprima) URINALYSIS NONAUTO W/O SCOPE 53828 [place] 1.005 DateTime(Free Text in Aprima) URINALYSIS NONAUTO W/O SCOPE 33434 PH 7.5 DateTime(Free Text in Aprima) URINALYSIS NONAUTO W/O SCOPE 56410 GLUCOSE DateTime(Free Text in Aprima) URINALYSIS NONAUTO W/O SCOPE 10439 Protein trace DateTime(Free Text in Aprima) URINALYSIS NONAUTO W/O SCOPE 73775 Blood 4+ DateTime(Free Text in Aprima) URINALYSIS NONAUTO W/O SCOPE 68326 Bilirubin DateTime(Free Text in Aprima) URINALYSIS NONAUTO W/O SCOPE 98810 Ketones DateTime(Free Text in Aprima) URINALYSIS NONAUTO W/O SCOPE 89357 Urobilinogen DateTime(Free Text in Aprima) URINALYSIS NONAUTO W/O SCOPE 74349 Nitrite DateTime(Free Text in Aprima) URINALYSIS NONAUTO W/O SCOPE 74409 Leukocytes trace DateTime(Free Text in Aprima) Review of Systems System Result Effective Dates Constitutional No recent illness 01/19/2017 Constitutional No [...] hemorrhoid 09/15/2015 None Full Exam - General 1995 Constitutional general appearance Nourishment: thin 09/01/2015 None [...] contact 03/15/2011 None Procedures Procedure Codes Date URINALYSIS NONAUTO W/O SCOPE CPT-4: 01291Kovbfpd 05/17/2016 ADMIN INFLUENZA VIRUS VAC CPT-4: M7547Ivbpqzr 03/24/2016 FLU VACC PRSV FREE INC ANTIG CPT-4: 65408Clxpmbp 03/24/2016 ADMIN PNEUMOCOCCAL VACCINE SNOMED CT: 67706935 CPT-4: J8766Snfmdhm 05/13/2015 PNEUMOCOCCAL VACC [address]: 34116089 CPT-4: 12806Ritrnzf 05/13/2015 Pneumococcal Polysaccharide Vaccine, 23-Valent, Ad Assigned to/Mela Bledsoe CPT-4: 14647Odumjas 07/11/2014 ADMIN PNEUMOCOCCAL VACCINE SNOMED CT: 78512194 CPT-4: Q4608Olutlbu 07/11/2014 URINALYSIS NONAUTO W/O SCOPE CPT-4: 66777Flpaxxo 05/14/2014 URINALYSIS NONAUTO W/O SCOPE CPT-4: 15642Nlfkqsw 05/06/2014 URINALYSIS NONAUTO W/O SCOPE CPT-4: 72285Fgdomrn 04/29/2014 ADMIN INFLUENZA VIRUS VAC CPT-4: N7584Puyrnlp 03/20/2014 FLU VAC NO PRSV 4 SCOTT 3 YRS+ Assigned to/Mela Bledsoe CPT-4: 51187Ywjkrgk 03/20/2014 URINALYSIS NONAUTO W/O SCOPE CPT-4: 79307Wabmujb 07/29/2013 URINALYSIS NONAUTO W/O SCOPE CPT-4: 79836Wkmbqoc 07/01/2013 URINALYSIS NONAUTO W/O SCOPE CPT-4: 72880Icjajsb 06/20/2013 ROUTINE VENIPUNCTURE CPT-4: 47419Gbqubdq 05/15/2013 ROUTINE VENIPUNCTURE CPT-4: 58215Hlkcuje 04/23/2013 ADMIN INFLUENZA VIRUS VAC CPT-4: P6431Mcyhpxy 04/23/2013 FLULAVAL VACC, 3 YRS & >, IM CPT-4: G6549Acmrhos 04/23/2013 ROUTINE VENIPUNCTURE CPT-4: 92290Mppzikz 12/17/2012 ROUTINE VENIPUNCTURE CPT-4: 32033Woniqmf 12/14/2012 ROUTINE VENIPUNCTURE CPT-4: 22011Cieavia 12/11/2012 PRESCRIP TRANSMIT VIA ERX SY CPT-4: C3358Xtklful 12/11/2012 PRESCRIP TRANSMIT VIA ERX SY CPT-4: J8213Qkbrmrg 10/30/2012 URINALYSIS NONAUTO W/O SCOPE CPT-4: 88410Sjrudri 09/13/2012 ADMIN INFLUENZA VIRUS VAC CPT-4: V7425Ontaytv 04/18/2012 FLULAVAL VACC, 3 YRS & >, IM CPT-4: I2394Qhevxff 04/18/2012 URINALYSIS NONAUTO W/O SCOPE CPT-4: 03172Kfqqrgw 03/13/2012 ROUTINE VENIPUNCTURE CPT-4: 39067Csnwufs 03/08/2012 URINALYSIS NONAUTO W/O SCOPE CPT-4: 66398Zwnwadg 02/13/2012 PRESCRIP TRANSMIT VIA ERX SY CPT-4: M5778Aejztxg 02/13/2012 ROCEPHIN, PER 250 MG CPT-4: Y3976Zmecicr 11/23/2011 ROUTINE VENIPUNCTURE CPT-4: 53491Mgcahzs 11/23/2011 URINALYSIS NONAUTO W/O SCOPE CPT-4: 00220Kbtzjxs 11/23/2011 PRESCRIP TRANSMIT VIA ERX SY CPT-4: W9906Qszlcid 11/23/2011 REMOVE IMPACTED EAR WAX UNI CPT-4: 00970Cftiosw 10/17/2011 PRESCRIP TRANSMIT VIA ERX SY CPT-4: B4447Evmdnvz 10/03/2011 PRESCRIP TRANSMIT VIA ERX SY CPT-4: P4669Lobimnw 08/08/2011 URINALYSIS NONAUTO W/O SCOPE CPT-4: 18733Vvnlxnq 03/15/2011 URINALYSIS NONAUTO W/O SCOPE CPT-4: 96538Okztzpb 03/04/2011 THER/PROPH/DIAG INJ SC/IM CPT-4: 84169Ccqfpnw 03/04/2011 ROCEPHIN, PER 250 MG CPT-4: M7047Eikhxzg 03/04/2011 Vital Signs Date Vital 01/19/2017 Blood Pressure 1: 112/60 Code: 8480-6 BMI: 21.5 Code: 27719-8 Heart Rate 1: 54 bpm Height: 5' SpO2: 97% Weight: 110 lbs 11/29/2016 Blood Pressure 1: 126/68 Code: 8480-6 Height: 5' Weight: 11/23/2016 Blood Pressure 1: 130/72 Code: 8480-6 BMI: 21.9 Code: 37911-1 Heart Rate 1: 48 bpm Height: 5' SpO2: 97% Temperature: 36.7 (C) / 98.0 (F) Weight: 112 lbs 11/21/2016 Blood Pressure 1: 134/76 Code: 8480-6 BMI: 21.9 Code: 45872-4 Heart Rate 1: 41 bpm Height: 5' SpO2: 94% Temperature: 36.9 (C) / 98.4 (F) Weight: 112 lbs 11/08/2016 Blood Pressure 1: 126/74 Code: 8480-6 Heart Rate 1: 82 bpm Height: 5' SpO2: 94% Weight: 11/02/2016 Blood Pressure 1: 112/66 Code: 8480-6 Heart Rate 1: 72 bpm Height: 5' SpO2: 95% Weight: 10/27/2016 Blood Pressure 1: 130/64 Code: 8480-6 BMI: 21.7 Code: 42887-4 Heart Rate 1: 81 bpm Height: 5' SpO2: 96% Weight: 111 lbs 08/31/2016 Blood Pressure 1: 132/72 Code: 8480-6 BMI: 22.5 Code: 92370-2 Heart Rate 1: 66 bpm Height: 5' Weight: 115 lbs 07/27/2016 Blood Pressure 1: 166/74 Code: 8480-6 BMI: 23.2 Code: 61047-9 Heart Rate 1: 48 bpm Height: 5' SpO2: 90% Temperature: 36.8 (C) / 98.2 (F) Weight: 119 lbs 06/23/2016 Blood Pressure 1: 128/70 Code: 8480-6 BMI: 22.3 Code: 32125-5 Heart Rate 1: 75 bpm Height: 5' SpO2: 97% Weight: 114 lbs 06/09/2016 BMI: 22.7 Code: 77838-4 Heart Rate 1: 73 bpm Height: 5' SpO2: 97% Weight: 116 lbs 05/25/2016 Blood Pressure 1: 138/62 Code: 8480-6 BMI: 22.8 Code: 53492-2 Heart Rate 1: 76 bpm Height: 5' Weight: 117 lbs 05/17/2016 Blood Pressure 1: 116/70 Code: 8480-6 BMI: 22.8 Code: 19819-1 Heart Rate 1: 74 bpm Height: 5' SpO2: 94% Weight: 117 lbs 03/24/2016 Blood Pressure 1: 154/78 Code: 8480-6 BMI: 22.5 Code: 54518-2 Heart Rate 1: 78 bpm Height: 5' SpO2: 97% Weight: 115 lbs 02/02/2016 Blood Pressure 1: 132/70 Code: 8480-6 BMI: 22.3 Code: 74601-3 Heart Rate 1: 74 bpm Height: 5' SpO2: 94% Weight: 114 lbs 2016 Blood Pressure 1: 120/62 Code: 8480-6 BMI: 22.0 Code: 05414-9 Heart Rate 1: 68 bpm Height: 5' Weight: 112 lbs 8 oz 12/21/2015 Blood Pressure 1: 122/82 Code: 8480-6 BMI: 21.9 Code: 35091-2 Heart Rate 1: 83 bpm Height: 5' SpO2: 93% Temperature: 37.1 (C) / 98.7 (F) Weight: 112 lbs 11/03/2015 Blood Pressure 1: 122/72 Code: 8480-6 BMI: 22.4 Code: 01064-8 Heart Rate 1: 62 bpm Height: 5' Weight: 114 lbs 8 oz 10/19/2015 Blood Pressure 1: 138/62 Code: 8480-6 BMI: 21.1 Code: 02068-7 Heart Rate 1: 79 bpm Height: 5' Weight: 108 lbs 10/13/2015 Blood Pressure 1: 120/62 Code: 8480-6 BMI: 21.0 Code: 26905-0 Heart Rate 1: 76 bpm Height: 5' SpO2: 98% Weight: 108 lbs 09/29/2015 Blood Pressure 1: 130/70 Code: 8480-6 BMI: 20.2 Code: 30840-6 Heart Rate 1: 72 bpm Height: 5' Weight: 104 lbs 09/15/2015 Blood Pressure 1: 128/78 Code: 8480-6 BMI: 19.9 Code: 04670-3 Heart Rate 1: 72 bpm Height: 5' Weight: 102 lbs 8 oz 09/01/2015 Blood Pressure 1: 128/68 Code: 8480-6 BMI: 19.8 Code: 42817-4 Height: 5' Weight: 102 lbs 05/26/2015 Blood Pressure 1: 140/68 Code: 8480-6 BMI: 19.0 Code: 21128-4 Heart Rate 1: 70 bpm Height: 5' Weight: 98 lbs 05/21/2015 Blood Pressure 1: 140/78 Code: 8480-6 BMI: 19.2 Code: 94617-2 Heart Rate 1: 85 bpm Height: 5' SpO2: 95% Weight: 99 lbs 05/07/2015 Blood Pressure 1: 140/82 Code: 8480-6 BMI: 19.0 Code: 69773-6 Heart Rate 1: 76 bpm Height: 5' Weight: 98 lbs 03/23/2015 Blood Pressure 1: 142/60 Code: 8480-6 BMI: 18.6 Code: 02727-3 Heart Rate 1: 52 bpm Height: 5' Weight: 96 lbs 03/09/2015 Blood Pressure 1: 138/74 Code: 8480-6 BMI: 18.8 Code: 70215-3 Heart Rate 1: 60 bpm Height: 5' Weight: 97 lbs 10/30/2014 Blood Pressure 1: 112/82 Code: 8480-6 BMI: 19.0 Code: 20913-4 Heart Rate 1: 64 bpm Height: 5' Weight: 98 lbs 07/11/2014 Blood Pressure 1: 146/70 Code: 8480-6 BMI: 18.8 Code: 72961-8 Heart Rate 1: 68 bpm Height: 5' Weight: 97 lbs 05/20/2014 Blood Pressure 1: 142/76 Code: 8480-6 BMI: 18.6 Code: 79824-5 Heart Rate 1: 78 bpm Height: 5' Weight: 96 lbs 04/29/2014 Blood Pressure 1: 138/62 Code: 8480-6 BMI: 18.3 Code: 04374-7 Heart Rate 1: 80 bpm Height: 5' Weight: 94 lbs 8 oz 03/20/2014 Blood Pressure 1: 142/68 Code: 8480-6 BMI: 18.6 Code: 70215-4 Heart Rate 1: 96 bpm Height: 5' Weight: 96 lbs 03/05/2014 Blood Pressure 1: 122/72 Code: 8480-6 BMI: 18.8 Code: 42673-2 Heart Rate 1: 82 bpm Height: 5' SpO2: 97% Weight: 97 lbs 01/29/2014 Blood Pressure 1: 124/78 Code: 8480-6 BMI: 18.8 Code: 23438-3 Heart Rate 1: 60 bpm Height: 5' Weight: 97 lbs 01/14/2014 Blood Pressure 1: 120/58 Code: 8480-6 BMI: 19.2 Code: 37232-5 Heart Rate 1: 56 bpm Height: 5' Temperature: 36.9 (C) / 98.4 (F) Weight: 99 lbs 12/25/2013 Blood Pressure 1: 118/78 Code: 8480-6 BMI: 19.2 Code: 31967-2 Heart Rate 1: 68 bpm Height: 5' Weight: 99 lbs 11/27/2013 Blood Pressure 1: 102/68 Code: 8480-6 BMI: 19.4 Code: 66576-3 Heart Rate 1: 56 bpm Height: 5' Weight: 100 lbs 09/12/2013 Blood Pressure 1: 142/62 Code: 8480-6 BMI: 19.7 Code: 53932-5 Heart Rate 1: 72 bpm Height: 5'1" Weight: 104 lbs 08/15/2013 Blood Pressure 1: 152/92 Code: 8480-6 Heart Rate 1: 96 bpm Weight: 102 lbs 08/01/2013 Blood Pressure 1: 122/68 Code: 8480-6 BMI: 19.1 Code: 65830-7 Heart Rate 1: 68 bpm Height: 5'1" Weight: 101 lbs 07/01/2013 Blood Pressure 1: 130/72 Code: 8480-6 BMI: 19.5 Code: 85940-7 Heart Rate 1: 80 bpm Height: 5'1" Temperature: 36.1 (C) / 97.0 (F) Weight: 103 lbs 05/29/2013 Blood Pressure 1: 126/72 Code: 8480-6 BMI: 19.3 Code: 82920-7 Heart Rate 1: 80 bpm Height: 5'1" Weight: 102 lbs 05/15/2013 Blood Pressure 1: 156/74 Code: 8480-6 BMI: 19.3 Code: 95795-8 Heart Rate 1: 88 bpm Height: 5'1" Weight: 102 lbs 04/23/2013 Blood Pressure 1: 140/82 Code: 8480-6 BMI: 19.3 Code: 42744-5 Heart Rate 1: 72 bpm Height: 5'1" Weight: 102 lbs 03/21/2013 Blood Pressure 1: 142/74 Code: 8480-6 Heart Rate 1: 92 bpm Weight: 103 lbs 01/16/2013 Blood Pressure 1: 120/56 Code: 8480-6 BMI: 20.0 Code: 83942-9 Heart Rate 1: 72 bpm Height: 5'1" Weight: 106 lbs 12/19/2012 Blood Pressure 1: 118/66 Code: 8480-6 Heart Rate 1: 84 bpm Weight: 12/10/2012 Blood Pressure 1: 132/62 Code: 8480-6 Heart Rate 1: 64 bpm Weight: 103 lbs 10/30/2012 Blood Pressure 1: 122/66 Code: 8480-6 BMI: 19.9 Code: 16079-3 Heart Rate 1: 61 bpm Height: 5'1" [...] 1: 118/72 Code: 8480-6 BMI: 21.0 Code: 00876-8 Heart Rate 1: 66 bpm Height: 5'1" Respiratory Rate: 16 bpm Weight: 111 lbs 2012 Blood Pressure 1: 122/62 Code: 8480-6 Heart Rate 1: 68 bpm Weight: 110 lbs 12/01/2011 Blood Pressure 1: 150/60 Code: 8480-6 BMI: 20.8 Code: 34216-0 Heart Rate 1: 60 bpm Height: 5'1" Respiratory Rate: 16 bpm Weight: 110 lbs 11/23/2011 Blood Pressure 1: 170/68 Code: 8480-6 BMI: 21.1 Code: 01524-7 Heart Rate 1: 64 bpm Height: 5'1" Temperature: 36.3 (C) / 97.3 (F) Weight: 111 lbs 8 oz 10/17/2011 Blood Pressure 1: 148/62 Code: 8480-6 Heart Rate 1: 74 bpm 10/03/2011 Blood Pressure 1: 102/48 Code: 8480-6 BMI: 21.4 Code: 64534-6 Heart Rate 1: 76 bpm Height: 5'1" Respiratory Rate: 16 bpm Weight: 113 lbs 08/08/2011 Blood Pressure 1: 128/60 Code: 8480-6 Heart Rate 1: 80 bpm Respiratory Rate: 16 bpm Weight: 113 lbs 05/09/2011 Blood Pressure 1: 130/62 Code: 8480-6 BMI: 20.7 Code: 70767-5 Heart Rate 1: 64 bpm Height: 5'1" Respiratory Rate: 16 bpm Weight: 109 lbs 8 oz 03/29/2011 Blood Pressure 1: 120/62 Code: 8480-6 BMI: 20.2 Code: 43651-2 Heart Rate 1: 66 bpm Height: 5'1" Respiratory Rate: 12 bpm Weight: 107 lbs 03/15/2011 Blood Pressure 1: 120/64 Code: 8480-6 BMI: 19.8 Code: 92212-2 Heart Rate 1: 76 bpm Height: 5'1" Respiratory Rate: 16 bpm Weight: 105 lbs Functional Status No Functional Status data History of Present Illness Symptom Name Status Result Effective Date Notes fatigue Onset and Resolution sudden in onset [...] contacts 03/20/2014 sat next to neighbor [place] who had tonsillitis sore throat Pertinent Findings [...] data Encounters Encounter Performer Location Codes Date ([id number]) [id number] EST. PATIENT, LEVEL IV Diagnosis: Essential (primary) hypertension[ICD10: I10] Diagnosis: Chronic atrial fibrillation[ICD10: I48.2] Diagnosis: Dysphonia[ICD10: R49.0] Karma Bahena MD [facility] CPT-4: 67963 01/19/2017 ([id number]) Miscellaneous no charge Diagnosis: Cough[ICD10: R05] Diagnosis: Acute upper respiratory infection, unspecified[ICD10: J06.9] Laura Bahena MD [facility] CPT-4: 06039 11/29/2016 [id number] EST. PATIENT, LEVEL III Diagnosis: Cough[ICD10: R05] Diagnosis: Acute laryngopharyngitis[ICD10: J06.0] Katharine Bahena MD [facility] CPT- 4: 61023 11/23/2016 ([id number]) 93872 EST. PATIENT, LEVEL III Diagnosis: Acute laryngopharyngitis[ICD10: J06.0] Laura Bahena MD [facility] CPT-4: 37262 11/21/2016 ([id number]) Miscellaneous no charge Diagnosis: Laceration without foreign body of right forearm, subsequent encounter[ICD10: S51.811D] PARVEEN Freitas MD CPT-4: 14776 11/17/2016 ([id number]) Miscellaneous no charge Diagnosis: Laceration without foreign body of right forearm, subsequent encounter[ICD10: S51.811D] Karma Bahena MD [facility] CPT-4: 07189 11/14/2016 ([id number]) Miscellaneous no charge Diagnosis: Laceration without foreign body of right forearm, subsequent encounter[ICD10: S51.811D] Karma Bahena MD [facility] CPT-4: 84594 11/11/2016 ([id number]) Miscellaneous no charge Diagnosis: Laceration without foreign body of right forearm, subsequent encounter[ICD10: S51.811D] Karma Bahena MD [facility] CPT-4: 05259 11/10/2016 ([id number]) 38973 EST. PATIENT, LEVEL II Diagnosis: Laceration without foreign body of right forearm, subsequent encounter[ICD10: S51.811D] Karma Bahena MD, [facility] CPT-4: 64488 11/08/2016 ([id number]) 99716 EST. PATIENT, LEVEL IV Diagnosis: Atrophy of thyroid (acquired)[ICD10: E03.4] Diagnosis: Chronic atrial fibrillation[ICD10: I48.2] Diagnosis: Laceration without foreign body of right forearm, subsequent encounter[ICD10: S51.811D] Karma Bahena MD, [facility] CPT-4: 74811 11/02/2016 ([id number]) 87792 EST. PATIENT, LEVEL III Diagnosis: Laceration without foreign body of right forearm, initial encounter[ICD10: S51.811A] Laura Bahena MD, [facility] CPT-4: 88037 10/27/2016 ([id number]) 31862 EST. PATIENT, LEVEL IV Diagnosis: Essential (primary) hypertension[ICD10: I10] Diagnosis: Chronic atrial fibrillation[ICD10: I48.2] Karma Bahena MD, [facility] CPT-4: 08818 08/31/2016 ([id number]) 05544 EST. PATIENT, LEVEL IV Diagnosis: Localized edema[ICD10: R60.0] Diagnosis: Essential (primary) hypertension[ICD10: I10] Diagnosis: Abdominal distension (gaseous)[ICD10: R14.0] Karma Bahena MD, [facility] CPT-4: 74025 07/27/2016 ([id number]) 86737 EST. PATIENT, LEVEL IV Diagnosis: Essential (primary) hypertension[ICD10: I10] Diagnosis: Chronic atrial fibrillation[ICD10: I48.2] Diagnosis: Localized edema[ICD10: R60.0] Karma Bahena MD, [facility] CPT-4: 48169 06/23/2016 ([id number]) 74144 EST. PATIENT, LEVEL III Diagnosis: Localized edema[ICD10: R60.0] Karma Bahena MD, [facility] CPT-4: [address] 06/09/2016 ([id number]) 28600 EST. PATIENT, LEVEL III Diagnosis: Irritable bowel syndrome without diarrhea[ICD10: K58.9] Diagnosis: Pruritus ani[ICD10: L29.0] Karma Bahena MD [facility] CPT-4: 67623 05/25/2016 ([id number]) 59344 EST. PATIENT, LEVEL III Diagnosis: Abdominal distension (gaseous)[ICD10: R14.0] Diagnosis: Encounter for screening mammogram for malignant neoplasm of breast[ICD10: Z12.31] Karma Bahena MD, [facility] CPT-4: 01236 05/17/2016 ([id number]) 10703 EST. PATIENT, LEVEL IV Diagnosis: Essential (primary) hypertension[ICD10: I10] Diagnosis: First degree hemorrhoids[ICD10: K64.0] Diagnosis: Encounter for immunization[ICD10: Z23] Karma Bahena MD, [facility] CPT-4: 80613 03/24/2016 ([id number]) 06826 EST. PATIENT, LEVEL III Diagnosis: Epidermal cyst[ICD10: L72.0] Diagnosis: Essential (primary) hypertension[ICD10: I10] Diagnosis: Chronic atrial fibrillation[ICD10: I48.2] Diagnosis: Other fci (current) drug therapy[ICD10: Z79.899] Karma Bahena MD, [facility] CPT-4: 12453 02/02/2016 ([id number]) 94353 EST. PATIENT, LEVEL III Diagnosis: Acute anal fissure[ICD10: K60.0] Karma Bahena MD [facility] CPT-4: 41727 2016 ([id number]) 35634 EST. PATIENT, LEVEL III Diagnosis: Allergic rhinitis due to pollen[ICD10: J30.1] Diagnosis: Acute upper respiratory infection, unspecified[ICD10: J06.9] Laura Bahena MD, [facility] CPT-4: 04947 12/21/2015 ([id number]) 11521 EST. PATIENT, LEVEL III Diagnosis: Essential (primary) hypertension[ICD10: I10] Diagnosis: Chronic atrial fibrillation[ICD10: I48.2] Karma Bahena MD, [facility] CPT-4: 63146 11/03/2015 ([id number]) Miscellaneous no charge Diagnosis: Impacted cerumen, right ear[ICD10: H61.21] Katharine Bahena MD, [facility] CPT-4: 23648 10/19/2015 90223 EST. PATIENT, LEVEL IV Diagnosis: Impacted cerumen, right ear[ICD10: H61.21] Diagnosis: Other allergic rhinitis[ICD10: J30.89] Katharine Bahena MD, [facility] CPT- 4: 36503 10/13/2015 ([id number]) 26696 EST. PATIENT, LEVEL IV Diagnosis: Essential (primary) hypertension[ICD10: I10] Diagnosis: Chronic atrial fibrillation[ICD10: I48.2] Diagnosis: Urge incontinence[ICD10: N39.41] Diagnosis: Age-related osteoporosis without current pathological fracture[ICD10: M81.0] Karma Bahena MD, [facility] CPT-4: 18055 09/29/2015 ([id number]) 41575 EST. PATIENT, LEVEL IV Diagnosis: Essential (primary) hypertension[ICD10: I10] Diagnosis: Chronic atrial fibrillation[ICD10: I48.2] Diagnosis: Irritable bowel syndrome without diarrhea[ICD10: K58.9] Diagnosis: Unspecified hemorrhoids[ICD10: K64.9] Karma Bahena MD, [facility] CPT-4: 67823 09/15/2015 ([id number]) 40045 EST. 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 PATIENT, LEVEL III Diagnosis: Hematuria, unspecified[ICD10: R31.9] Diagnosis: Other urethritis[ICD10: N34.2] Diagnosis: Other specified noninflammatory disorders of vagina[ICD10: N89.8] Karma Bahena MD, [facility] CPT-4: 19989 05/26/2015 51208 EST. PATIENT, LEVEL IV Diagnosis: Gout, unspecified[ICD10: M10.9] Karma Bahena MD, [facility] CPT-4: 35237 05/21/2015 ([id number]) 01870 EST. PATIENT, LEVEL IV Diagnosis: Chronic atrial fibrillation[ICD10: I48.2] Diagnosis: Irritable bowel syndrome without diarrhea[ICD10: K58.9] Diagnosis: Cystocele, unspecified[ICD10: N81.10] Diagnosis: Urge incontinence[ICD10: N39.41] Diagnosis: Fecal smearing[ICD10: R15.1] Diagnosis: Hypothyroidism, unspecified[ICD10: E03.9] Karma Bahena MD, [facility] CPT-4: 60309 05/07/2015 ([id number]) 11498 EST. PATIENT, LEVEL III Diagnosis: Atrial fibrillation[ICD9: 427.31] Diagnosis: Bloating[ICD9: 787.3] Karma Bahena MD, [facility] CPT-4: 09039 03/23/2015 ([id number]) 75518 EST. PATIENT, LEVEL IV Diagnosis: Abdominal pain[ICD9: 789.00] Diagnosis: Atrial fibrillation[ICD9: 427.31] Diagnosis: ENCNTR LONG-ANTICOAG USE[ICD9: V58.61] Karma Bahena MD, [facility] CPT-4: 37532 03/09/2015 ([id number]) 50509 EST. PATIENT, LEVEL IV Diagnosis: HEMATURIA NOS[ICD9: 599.70] Diagnosis: Atrial fibrillation[ICD9: 427.31] Diagnosis: HYPOTHYROIDISM[ICD9: 244.9] Karma Bahena MD, [facility] CPT-4: 83154 10/30/2014 ([id number]) 61092 EST. PATIENT, LEVEL IV Diagnosis: Atrial fibrillation[ICD9: 427.31] Diagnosis: ALLERGIC RHINITIS[ICD9: 477.9] Diagnosis: Need for pneumococcal vaccine[ICD9: V03.82] Diagnosis: Osteoarthritis[ICD9: 715.90] Diagnosis: Osteoporosis[ICD9: 733.00] Karma Bahena MD, [facility] CPT-4: 86549 07/11/2014 ([id number]) 57568 EST. PATIENT, LEVEL III Diagnosis: Urge incontinence[ICD9: 788.31] Diagnosis: Dysuria[ICD9: 788.1] Karma Bahena MD [facility] CPT-4: 30633 05/20/2014 ([id number]) 98170 EST. PATIENT, LEVEL IV Diagnosis: Atrial fibrillation[ICD9: 427.31] Diagnosis: Hematuria[ICD9: 599.70] Diagnosis: Dysuria[ICD9: 788.1] Diagnosis: ESSENTIAL HYPERTENSION[ICD9: 401.9] Karma Bahena MD [facility] CPT- 4: 72497 04/29/2014 ([id number]) 82522 EST. PATIENT, LEVEL IV Diagnosis: ESSENTIAL HYPERTENSION[ICD9: 401.9] Diagnosis: ALLERGIC RHINITIS[ICD9: 477.9] Karma Bahena MD [facility] CPT-4: 53758 03/20/2014 ([id number]) 30471 EST. PATIENT, LEVEL IV Diagnosis: ESSENTIAL HYPERTENSION[ICD9: 401.9] Diagnosis: ATRIAL FIBRILLATION[ICD9: 427.31] Diagnosis: Irritable bowel[ICD9: 564.1] Karma Bahena MD [facility] CPT-4: 56632 03/05/2014 ([id number]) 03881 EST. PATIENT, LEVEL IV Diagnosis: Esophageal reflux[ICD9: 530.81] Diagnosis: DIARRHEA[ICD9: 787.91] Diagnosis: ABDOM PAIN NOS SITE[ICD9: 789.00] Karma Bahena MD [facility] CPT- 4: 71627 01/29/2014 ([id number]) 59618 EST. PATIENT, LEVEL III Diagnosis: Irritable bowel[ICD9: 564.1] Diagnosis: DIARRHEA[ICD9: 787.91] Laura Bahena MD, [facility] CPT-4: 69220 01/14/2014 ([id number]) 97703 EST. PATIENT, LEVEL IV Diagnosis: ESSENTIAL HYPERTENSION[ICD9: 401.9] Diagnosis: ATRIAL FIBRILLATION[ICD9: 427.31] Diagnosis: URGE INCONTINENCE[ICD9: 788.31] Diagnosis: MALAISE AND FATIGUE[ICD9: 780.79] Diagnosis: Dyspnea[ICD9: 786.09] Karma Bahena MD, [facility] CPT-4: 20762 12/25/2013 ([id number]) 62813 EST. PATIENT, LEVEL IV Diagnosis: ESSENTIAL HYPERTENSION[SNOMED: 01103521] Diagnosis: ATRIAL FIBRILLATION[ICD9: 427.31] Diagnosis: Abdominal pain[ICD9: 789.00] Diagnosis: ESOPHAGEAL REFLUX[ICD9: 530.81] Karma Bahena MD [facility] CPT-4: 48786 11/27/2013 ([id number]) 08532 EST. PATIENT, LEVEL IV Diagnosis: ESSENTIAL HYPERTENSION[SNOMED: 92642863] Diagnosis: ATRIAL FIBRILLATION[ICD9: 427.31] Diagnosis: Chronic osteoarthritis[ICD9: 715.90] Karma Bahena MD [facility] CPT- 4: 37146 09/12/2013 ([id number]) 05159 EST. PATIENT, LEVEL III Diagnosis: ESSENTIAL HYPERTENSION[SNOMED: 83900204] Diagnosis: Bruising[ICD9: 924.9] Diagnosis: ENCNTR LONG-RX USE NEC[ICD9: V58.69] Karma Bahena MD [facility] CPT- 4: 81439 08/15/2013 ([id number]) 09827 EST. PATIENT, LEVEL IV Diagnosis: ESSENTIAL HYPERTENSION[SNOMED: 79770892] Diagnosis: Hematuria[ICD9: 599.70] Diagnosis: Dysuria[ICD9: 788.1] Karma Bahena MD, [facility] CPT-4: 63974 08/01/2013 ([id number]) 98405 EST. PATIENT, LEVEL III Diagnosis: UTI[ICD9: 599.0] Diagnosis: Hematuria[ICD9: 599.70] Laura Bahena MD, [facility] CPT-4: 82862 07/01/2013 ([id number]) 34136 EST. PATIENT, LEVEL III Diagnosis: ATRIAL FIBRILLATION[ICD9: 427.31] Diagnosis: ESSENTIAL HYPERTENSION[SNOMED: 35277869] Karma Bahena MD [facility] CPT-4: 38965 05/29/2013 ([id number]) 66479 EST. PATIENT, LEVEL IV Diagnosis: Atrial fibrillation[ICD9: 427.31] Diagnosis: Encounter for monitoring digoxin therapy[ICD9: V58.83] Diagnosis: ESSENTIAL HYPERTENSION[SNOMED: 00290015] Karma Bahena MD, [facility] CPT-4: 34975 05/15/2013 ([id number]) 58497 EST. PATIENT, LEVEL IV Diagnosis: ESSENTIAL HYPERTENSION[SNOMED: 51136873] Diagnosis: ATRIAL FIBRILLATION[ICD9: 427.31] Diagnosis: PALPITATIONS[ICD9: 785.1] Diagnosis: Dizziness and giddiness[ICD9: 780.4] Karma Bahena MD [facility] CPT- 4: 02488 04/23/2013 ([id number]) 93736 EST. PATIENT, LEVEL III Diagnosis: OTHER CONSTIPATION[ICD9: 564.09] Diagnosis: ABDOM PAIN NOS SITE[ICD9: 789.00] Laura Bahena MD [facility] CPT- 4: 21313 03/21/2013 ([id number]) 46148 EST. PATIENT, LEVEL IV Diagnosis: ESSENTIAL HYPERTENSION[SNOMED: 82632835] Diagnosis: Atrial fibrillation[ICD9: 427.31] Karma Bahena MD [facility] CPT- 4: 53425 01/16/2013 ([id number]) Miscellaneous no charge Diagnosis: CELLULITIS OF HAND[ICD9: 682.4] Karma Bahena MD [facility] CPT-4: 98191 12/19/2012 ([id number]) Miscellaneous no charge Diagnosis: ENCOUNTER FOR THERAPEUTIC DRUG MONITORING[ICD9: V58.83] Diagnosis: CELLULITIS OF HAND[ICD9: 682.4] Karma Bahena MD [facility] CPT-4: 57267 12/14/2012 Miscellaneous no charge Diagnosis: CELLULITIS OF HAND[ICD9: 682.4] Karma Bahena MD, [facility] CPT-4: 53790 12/12/2012 14033 EST. PATIENT, LEVEL II Diagnosis: CELLULITIS OF HAND[ICD9: 682.4] Diagnosis: ENCNTR LONG-RX USE NEC[ICD9: V58.69] Diagnosis: LONG-TERM USE ANTICOAGUL[ICD9: V58.61] Karma Bahena MD [facility] CPT-4: 82816 12/11/2012 ([id number]) 10670 EST. PATIENT, LEVEL III Diagnosis: CELLULITIS OF HAND[ICD9: 682.4] Karma Bahena MD, [facility] CPT-4: 80010 12/10/2012 ([id number]) 02279 EST. PATIENT, LEVEL IV Diagnosis: Elevated digoxin level[ICD9: 796.0] Diagnosis: ATRIAL FIBRILLATION[ICD9: 427.31] Diagnosis: Inflammatory arthritis[ICD9: 714.9] PARVEEN Freitas MD CPT- 4: 11129 10/30/2012 ([id number]) 08420 EST. PATIENT, LEVEL IV Diagnosis: Atrial fibrillation[ICD9: 427.31] Diagnosis: Anticoagulant long-term use[ICD9: V58.61] Diagnosis: ESSENTIAL HYPERTENSION[SNOMED: 50567403] PARVEEN Freitas MD CPT-4: 02609 08/08/2012 ([id number]) 33939 EST. PATIENT, LEVEL IV Diagnosis: ABDOM PAIN NOS SITE[ICD9: 789.00] Diagnosis: Constipation - functional[ICD9: 564.09] Diagnosis: EDEMA[ICD9: 782.3] Diagnosis: ATRIAL FIBRILLATION[ICD9: 427.31] Karma Bahena MD [facility] CPT- 4: 26188 07/11/2012 ([id number]) 88819 EST. PATIENT, LEVEL III Diagnosis: Cystocele[ICD9: 618.01] Diagnosis: Rectocele[ICD9: 618.04] Karma Bahena MD [facility] CPT-4: 01506 05/08/2012 ([id number]) 96576 EST. 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 PATIENT, LEVEL IV Diagnosis: ATRIAL FIBRILLATION[ICD9: 427.31] Diagnosis: URGE INCONTINENCE[ICD9: 788.31] Diagnosis: MALAISE AND FATIGUE[ICD9: 780.79] Diagnosis: Dyspnea[ICD9: 786.09] Karma Bahena MD [facility] CPT-4: 70458 02/20/2012 79338 EST. PATIENT, LEVEL IV Diagnosis: Hematuria[ICD9: 599.70] Diagnosis: Vaginal yeast infection[ICD9: 112.1] Diagnosis: ATRIAL FIBRILLATION[ICD9: 427.31] Laura Bahena MD, [facility] CPT- 4: 64574 02/13/2012 ([id number]) 10169 EST. PATIENT, LEVEL IV Diagnosis: Atrial fibrillation[ICD9: 427.31] Diagnosis: Anticoagulation goal of INR 2 to 3[ICD9: V58.83] Diagnosis: Urinary incontinence, urge[ICD9: 788.31] Diagnosis: ESSENTIAL HYPERTENSION[SNOMED: 78785948] Karma Bahena MD [facility] CPT-4: 70764 02/01/2012 ([id number]) 54631 EST. PATIENT, LEVEL IV Diagnosis: Atrial fibrillation[ICD9: 427.31] Diagnosis: Anticoagulant long-term use[ICD9: V58.61] Diagnosis: ESSENTIAL HYPERTENSION[SNOMED: 87878101] Karma Bahena MD [facility] CPT-4: 15163 2012 62158 EST. PATIENT, LEVEL IV Diagnosis: UTI[ICD9: 599.0] Diagnosis: ESSENTIAL HYPERTENSION[SNOMED: 09407657] Diagnosis: MALAISE AND FATIGUE[ICD9: 780.79] Diagnosis: Esophageal reflux[ICD9: 530.81] Karma Bahena MD, [facility] CPT-4: 46098 12/01/2011 ([id number]) 15262 EST. PATIENT, LEVEL IV Diagnosis: UTI (urinary tract infection)[ICD9: 599.0] Diagnosis: ESSENTIAL HYPERTENSION[SNOMED: 24272897] Diagnosis: URGE INCONTINENCE[ICD9: 788.31] Karma Bahena MD, [facility] CPT-4: 28236 11/23/2011 ([id number]) 72651 EST. PATIENT, LEVEL IV Diagnosis: ESSENTIAL HYPERTENSION[SNOMED: 85957703] Diagnosis: IMPACTED CERUMEN[ICD9: 380.4] Diagnosis: MALAISE AND FATIGUE[ICD9: 780.79] Diagnosis: EDEMA[ICD9: 782.3] Karma Bahena MD, [facility] CPT-4: 23565 10/03/2011 53808 EST. PATIENT, LEVEL IV Diagnosis: ESSENTIAL HYPERTENSION[SNOMED: 66246504] Diagnosis: Generalized osteoarthritis[ICD9: 715.09] Diagnosis: OSTEOPOROSIS[ICD9: 733.00] Karma Bahena MD, [facility] CPT-4: 31072 08/08/2011 19950 EST. PATIENT, LEVEL IV Diagnosis: Muscle cramp[ICD9: 729.82] Diagnosis: Torticollis[ICD9: 723.5] Diagnosis: Rash[ICD9: 782.1] Karma Bahena MD, [facility] CPT-4: 80009 05/09/2011 36656 EST. PATIENT, LEVEL IV Diagnosis: Leg cramps, sleep related[ICD9: 327.52] Diagnosis: Underweight[ICD9: 783.22] Karma Bahena MD, [facility] CPT-4: 50497 03/29/2011 23413 EST. PATIENT, LEVEL IV Diagnosis: UTI[ICD9: 599.0] Diagnosis: Urge incontinence[ICD9: 788.31] Diagnosis: Loss of weight[ICD9: 783.21] Diagnosis: Palpitations[ICD9: 785.1] Diagnosis: Peripheral neuropathy, idiopathic[ICD9: 356.9] Karma Bahena MD, [facility] CPT-4: 05339 03/15/2011 Plan of Care Planned Activity Notes Codes Status Date Visit Plan: Hypertension - well controlled - [...] their heart rate is becoming uncontrolled. 01/19/2017 Patient Education: Patient Medication Summary Completed 01/19/2017 Care Plan: Referral Order SNOMED-CT : [id number] Pending 01/19/2017 Appointment: Karma Bahena WPtel: [phone] [facility] (15 min) Moderate 01/04/2017 Appointment: Karma Bahena WPtel: [facility]0 [facility] [place] (15 min) Moderate 12/28/2016 Visit Plan: MLB-[id number]-qcb zpack-call if symptoms do not resolve or if any worse. Patient verbalized understanding of plan. 11/29/2016 Appointment: Laura Colin WPtel: [phone] [place] (15 min) Moderate 11/29/2016 Patient Education: [...] patient's pharmacy. 11/23/2016 Appointment: Katharine Dai WPtel: [facility]3 [facility] [place] (15 min) Moderate 11/23/2016 Patient Education: Patient Medication Summary Completed 11/23/2016 Visit Plan: Pharyngitis-Discussed natural and expected course of this diagnosis and need to alert me if symptoms do not follow expected course, or if any worse. Recommended salt water gargles as needed for pain. Tylenol/motrin as needed for fever/discomfort. 11/21/2016 Appointment: Laura Colin WPtel: [phone] [phone] (15 min) Moderate 11/21/2016 Patient Education: Patient [...] symptoms. 11/08/2016 App[facility]ment[phone] (10 min) Simple 11/08/2016 Patient Education: Patient [...] with supportive care, bactroban, etc. 11/02/2016 Appointment: Nurse Visit 11/02/2016 Appointment: Karma Bahena WPtel: [facility] (15 min) Moderate 11/02/2016 Patient Education: Patient Medication Summary Completed 11/02/2016 Appointment: Nurse Visit 10/31/2016 Visit Plan: Laceration-right forearm- Pt was instructed to keep the wound clean, cleanse with sterile saline, use bactroban ointment, call if redness, pustular drainage, or any other acute concerns. Follow up Monday for dressing changes. 10/27/2016 Appointment: Laura Colin WPtel: [phone] [phone] (30 min) Complex 10/27/2016 Patient Education: Patient [...] in symptoms. 08/31/2016 Appointment: [phone] [facility] (15 min) Moderate 08/31/2016 Patient Education: Patient [...] your swelling. 07/27/2016 Appointment: [phone] [facility] (15 min) Moderate 07/27/2016 Patient Education: Patient [...] lasix 06/23/2016 Appointment: Karma Bahena WPtel: [address] [place], [place] [phone] [place] (15 min) Moderate 06/23/2016 Patient Education: Patient Medication Summary Completed 06/23/2016 Patient Education: Hypertension Completed 06/23/2016 Visit Plan: Edema - with Dyspnea - RX for laxis and compression socks - pt to call if not improving. 06/09/2016 Appointment: Karma Bahena WPtel: [facility]8 [facility] [place] (15 min) Moderate 06/09/2016 Patient Education: Patient Medication Summary Completed 06/09/2016 Visit Plan: Abdominal pain and rectal itching - recommended pt to use betamethasone on vaginal/rectal region, monitor symptoms call if not improving. Continue with beano and simethicone 05/25/2016 Appointment: Karma Bahena WPtel: [address] [place], [place] [phone] [place] (15 min) Moderate 05/25/2016 Patient Education: Patient Medication Summary Completed 05/25/2016 Care Plan: SCREENINGMAMMOGRAPHYDIGITAL LOINC : 67769-8 Pending 05/20/2016 Visit Plan: Abdominal distension - use simethicone four times daily - after meals - if it does not help - in the next two weeks - call the office and we will do a ct scan of the abdomen and pelvis 05/17/2016 Appointment: Karma Bahena WPtel: [address] [place] [address] [place] (15 min) Moderate 05/17/2016 Patient Education: [...] steroid ointment 03/24/2016 Appointment: Karma Bahena WPtel: [facility]9 [facility] [place] (30 min) Complex 03/24/2016 Patient Education: [...] allergy spray. 12/21/2015 Appointment: Laura Colin WPtel: [facility]5 [phone] (30 min) Complex 12/21/2015 Patient Education: Patient [...] becoming uncontrolled. 11/03/2015 Appointment: Karma Bahena WPtel: [facility]2 [facility] (15 min) Moderate 11/03/2015 Patient [...] had left kidney and ureter removed in [place]-doing well 09/01/2015 Appointment: (30 min) Complex 09/01/2015 Patient Education: Patient Medication Summary Completed 09/01/2015 Patient Education: Hypertension Completed 09/01/2015 Appointment: Karma Bahena WPtel: [address] [place] [address] (15 min) Moderate 07/13/2015 Visit Plan: Hematuria/Urethritis [...] 05/13/2015 Care Plan: Referral Order SNOMED-CT : [id number] Ordered 05/08/2015 Visit Plan: Atrial Fibrillation - [...] Dr. Collins. 05/07/2015 Appointment: Karma Bahena WPtel: [address] [place] [address] (15 min) Moderate 05/07/2015 Patient Education: Patient [...] rate is becoming uncontrolled. 10/30/2014 Appointment: Karma Bahean WPtel: [address] [place], [place] [phone] Follow up 10/30/2014 Patient Education: Patient Medication Summary Completed 10/30/2014 Appointment: Karma Bahena WPtel: [address] [place], [place] [phone] Follow up 07/22/2014 Visit Plan: Atrial Fibrillation [...] 2000 units dailyrecommended to increase iron containing foods. will have staff call hospital to see if pneumonia vaccine was given in hospital. 07/11/2014 Appointment: Karma Bahena WPtel: [facility]5 [facility] Sick 07/11/2014 Patient Education: Patient Medication Summary Completed 07/11/2014 Appointment: Karma Bahena WPtel: [address] [place], [place] [phone] Follow up 07/07/2014 Visit Plan: Urinary incontinence and recurrent UTI's - doctor will refer to Dr. Joel Collins - for nonsurgical intervention for potential electrical stimulation/training of pelvic floor muscles - for strengthening - can start on the treatment when you get back from [place] - will also ask him about doing a cystoscopy to look into bladder to see if there is any bladder irritation.keep using the Premarin - use about 25Cent size of cream onto finger to apply to urethra and do this three times weekly. 05/20/2014 Appointment: Karma Bahena WPtel: [facility]3 [facility] Follow up 05/20/2014 Patient Education: Patient Medication Summary Completed 05/20/2014 Appointment: Karma Bahena WPtel: [address] [place], [place] [phone] Lab Draw 05/14/2014 Patient Education: Patient Medication [...] recommended vesicare. 04/29/2014 Appointment: Karma Bahena WPtel: [facility]0 [facility] Follow up 04/29/2014 Patient Education: Patient Medication [...] spray. 03/20/2014 Appointment: [facility]hen[phone] [facility] [facility] 03/20/2014 Patient Education: Patient Medication Summary [...] uncontrolled. 03/05/2014 Appointment: [facility]hen[phone] [facility] Follow up 03/05/2014 Patient Education: Patient Medication [...] report. 01/29/2014 Appointment: [facility]hen[phone] [facility] Follow up 01/29/2014 Patient Education: Patient Medication [...] exposure,and dyspnea on exertion - will ask [place] do an overnight oxygen study on [employer] as she has cardiac history, weight loss, and nocturnal hypoxemia may be a part of her weight loss and fatigue. 12/25/2013 Appointment: Kar[facility] Bahena [facility]Ptel[facility] [address] [facility] Follow up 12/25/2013 Patient Education: Patient Medication [...] twice daily. 11/27/2013 Appointment: Karma Bahena WPtel: [facility] Follow up 11/27/2013 Patient Education: Patient Medication [...] and heart rate.Osteoarthritis - send pt to [facility] physical therapy for gereral osteoarhtritis program for strengthening and pain reduction. Hypertension - well controlled - continue with current medications, continue with no added salt diet. Pt has been encouraged to exercise daily.The pt has been advised to call the office if there are any acute concerns about change in blood pressure readings at home. 09/12/2013 Appointment: Karma Bahena WPtel: [facility]5 [facility] Follow up 09/12/2013 Patient Education: Patient Medication Summary Completed 09/12/2013 Patient Education: Hypertension Completed 09/12/2013 Appointment: Karma Bahena WPtel: [address] [place] [id number] Follow up 08/21/2013 Visit Plan: Hypertension - [...] PT/INR 08/15/2013 Appointment: [facility]hen[facility]el[phone] [facility] [place] Follow up 08/15/2013 Patient Education: Patient [...] of urethra. 08/01/2013 Appointment: Karma Bahena WPtel: [facility] [place] Follow up 08/01/2013 Patient Education: Patient Medication Summary Completed 08/01/2013 Patient Education: Hypertension Completed 08/01/2013 Appointment: Laura Colin WPtel: [facility]5 [phone] [place] Lab Draw 07/29/2013 Patient Education: Patient Medication Summary Completed 07/29/2013 Visit Plan: Osteoporosis-prolia on june 25-patient to let Dr Hansen know 07/01/2013 Appointment: Laura Colin WPtel: [facility]5 [phone] [place] Follow up 07/01/2013 Appointment: Karma Bahena WPtel: [facility]5 [facility] [place] Follow up 07/01/2013 Patient Education: Patient Medication Summary Completed 07/01/2013 Appointment: Karma Bahena WPtel: [facility]5 [facility] Follow up 06/25/2013 Appointment: Karma Bahena WPtel: [facility] [facility] 06/20/2013 Patient Education: Patient Medication Summary Completed 06/20/2013 Appointment: Karma Bahena WPtel: [facility] [facility] 06/19/2013 Visit Plan: Atrial Fibrillation [...] at home. 05/29/2013 Appointment: Karma Bahena WPtel: [facility] Follow up 05/29/2013 Patient Education: Patient Medication [...] at home. 05/15/2013 Appointment: Karma Bahena WPtel: [facility] Other 05/15/2013 Patient Education: Patient Medication Summary [...] 04/23/2013 Appointment: Karma Bahena WPtel: [phone] [facility] Other 04/23/2013 Patient Education: Patient [...] regimen. 03/21/2013 Appointment: Laura Colin WPtel: [phone] [id number] Follow up 03/21/2013 Patient Education: Patient Medication [...] becoming uncontrolled. 01/16/2013 Appointment: Karma Bahena WPtel: [phone] [facility] Follow up 01/16/2013 Patient Education: Patient Medication Summary Completed 01/16/2013 Patient Education: Hypertension Completed 01/16/2013 Visit Plan: Wound Instructions - Pt was instruced to keep the wound clean, wash with antibacterial soap, use triple antibiotic ointment, call if redness, pustular drainage, or any other acute conerns. 12/19/2012 Appointment: Karma Bahena WPtel: [address] [place], [place] [id number] Other 12/19/2012 Patient Education: Patient Medication Summary Completed 12/19/2012 Patient Education: Patient Medication Summary Completed 12/17/2012 Visit Plan: Cellulitis - improved- monitor symptoms - need to check handon Monday morning. 12/14/2012 Appointment: Karma Bahena WPtel: [address] [place], [place] [id number] Follow up 12/14/2012 Patient Education: Patient Medication Summary Completed 12/14/2012 Visit Plan: Cellulitis - improved- monitor symptoms - need to check handon Monday morning. 12/12/2012 Appointment: Karma Bahena WPtel: [address] [place], [place] [id number] Work-in 12/12/2012 Patient Education: Patient Medication Summary [...] warmth, discharge. 12/10/2012 Appointment: Karma Bahena WPtel: [address] [place], [place] [id number] Other 12/10/2012 Patient Education: Patient Medication Summary [...] becoming uncontrolled. 10/30/2012 Appointment: [phone] [facility] 10/30/2012 Patient Education: Patient Medication Summary Completed 10/30/2012 [facility]ment: [phone] Lab Draw 09/13/2012 Patient Education: Patient Medication [...] and 3.5. 08/08/2012 Appointment: [facility]el[phone] Other 08/08/2012 Patient Education: Patient Medication Summary [...] this regimen. 07/11/2012 Appointment: Karma Bahena WPtel: [facility] [place] swelling, leg edema Other 07/11/2012 Patient [...] medication vaginally. 05/08/2012 Appointment: Karma Bahena WPtel: [facility] Follow up 05/08/2012 Patient Education: Patient Medication [...] during hospitalization. 04/18/2012 Appointment: Karma Bahena WPtel: [facility] [place] Follow up 04/18/2012 Patient Education: Patient Medication Summary Completed 04/18/2012 Patient Education: High Blood Pressure: Essential Hypertension Completed 04/18/2012 Appointment: Karma Bahena WPtel: [facility] [place] Follow up 04/09/2012 Appointment: Karma Bahena WPtel: [address] [place] [address] [place] Lab Draw 04/04/2012 Appointment: [phone] [place] Lab Draw 03/19/2012 Visit Plan: Abdominal pain-N/V-patient acutely ill and requires admission to the hospital for further work up[facility]Will keep patient NPO for [...] for further work up-Dr. Bahena in to [facility] patient as well-Will keep patient NPO for now and plan to check CT scan as well as labs and start patient on intravenous fluids. Patient verbalized understanding of plan. 03/13/2012 Patient Education: Patient Medication Summary Completed 03/13/2012 Patient Education: High Blood Pressure: Essential Hypertension Completed 03/13/2012 Appointment: Karma Bahena WPtel[phone] [facility] [place] Lab Draw 03/08/2012 Patient Education: Patient [...] rehab. 02/20/2012 Appointment: Karma Bahena WPtel: [phone] [facility] Other 02/20/2012 Patient Education: Patient Medication Summary [...] becoming uncontrolled. 02/13/2012 Appointment: Laura Colin WPtel: [facility]5 [phone] [place] [address] Other 02/13/2012 Patient Education: Patient Medication Summary Completed 02/13/2012 Appointment: Karma Bahena WPtel: [facility]5 [facility] Lab Draw 02/07/2012 Visit Plan: Atrial Fibrillation [...] the medication. 02/01/2012 Appointment: Karma Bahena WPtel: [address] [place], [place] [id number] Other 02/01/2012 Patient Education: Patient Medication Summary Completed 02/01/2012 Patient Education: High Blood Pressure: Essential Hypertension Completed 02/01/2012 Appointment: Karma Bahena WPtel: [address] [place] [address] Lab Draw 01/17/2012 Visit Plan: Atrial Fibrillation [...] at home. 2012 Appointment: Karma Bahena WPtel: [address] [place], [place] [phone] Other 2012 Patient Education: Patient Medication Summary Completed 2012 Patient Education: High Blood Pressure: Essential Hypertension Completed 2012 Appointment: Karma Bahena WPtel: [address] [place], [place] [phone] Follow up 12/20/2011 Visit Plan: Dicyclomine up to every 6 hours, and take one pill before the meals that you know are problematic.Continue with omeprazole, take in the evening and take the sample of the dexilant in the morning as well for the next 10 days.Pt has been instructed to call the office on Gayathri morning to let us know how she is feeling.If the elevated blood pressure or abdominal pain recurrs, she is to go to the emergency room. 12/01/2011 Appointment: [facility] Bahena [facility]Ptel[phone] [facility] [place] Other 12/01/2011 Patient Education: Patient Medication [...] infection resolves. 11/23/2011 Appointment: [phone] [place] Other 11/23/2011 Patient Education: Patient Medication Summary Completed 11/23/2011 Patient Education: High Blood Pressure: Essential Hypertension Completed 11/23/2011 Visit Plan: Cerumen Impaction - The impacted cerumen was removed with the use of either ear currette alone or in combination with ear curette and water pick. The patient tolerated the procedure without incident and had improvement in hearing 10/17/2011 Appointment: Laura Colin WPtel: [facility]5 [place] [phone] [place] Other 10/17/2011 Patient Education: Patient Medication [...] by irrigation. 10/03/2011 Appointment: Karma Bahena WPtel: [facility]5 [address] Other 10/03/2011 Patient Education: Patient Medication [...] is evidence. 08/08/2011 Appointment: Karma Bahena WPtel: [phone] [facility] [place] Other 08/08/2011 Patient Education: Patient Medication Summary Completed 08/08/2011 Patient Education: High Blood Pressure: Essential Hypertension Completed 08/08/2011 Visit Plan: Muscle cramps - the cramps are a little better, continue with the Diltiazem and it is okay to use the over the counter supplement with quinine - but use it sparingly.For the rash, use the prescription the absorption and adsorption engineer prescribed for the itching , call if the rash is not improved.Torticollis - continue with physical therapy, call if the neck muscles do not continue to show improvement. 05/09/2011 Appointment: Karma Bahena WPtel: [address] [place] [address] Other 05/09/2011 Patient Education: Patient Medication Summary [...] water aerobics. 03/29/2011 Appointment: Karma Bahena WPtel: [address] [place] [address] [place] Other 03/29/2011 Patient Education: Patient Medication Summary Completed 03/29/2011 Appointment: Karma Bahena WPtel: [address] [place], [place] [id number] Other 03/17/2011 Visit Plan: UTI - UA negative.Urge incontinence- restart on the vesicare- at 5 mg. Continue to avoid caffinated foods/fluids.Peripheral Neuropathy - per telex operator report - Continue with the metanex.Loss of weight - WEIGHT CHECK IN 2 WKS. Palpitations- likely stress induced. If the symptoms worsen, call the office. 03/15/2011 Appointment: Karma Bahena WPtel: [address] [place], [place] [phone] Follow up 03/15/2011 Patient Education: Patient Medication Summary Completed 03/15/2011 Visit Plan: Rocephin 500mg IM 03/04/2011 Patient Education: Patient Medication Summary Completed 03/04/2011 Referral: Dr Jeff Referral Appointment Requested Referral: Corby Collins Referral Appointment Requested Instructions Comment change [...] avoid caffinated foods/fluids. Peripheral Neuropathy - per telex operator report - Continue with the metanex. [...] therefore, would not change the medication. . [id number] zpack-call if symptoms do not resolve or [...] For the rash, use the prescription the absorption and adsorption engineer prescribed for the itching , call if [...] rate. Osteoarthritis - send pt to [facility] physical therapy for gereral osteoarhtritis program for [...] blood pressure readings at home. Fstigue and romina- recommended cardiac rehab. . Hypertension - well [...] had left kidney and ureter removed in [place]- doing well . Hematuria - check UA. [...] sent to cardiology. Flu shot today. . Hypertension - well controlled [...] the treatment when you get back from [place] - will also ask him about doing [...] the treatment when you get back from [place] - will also ask him about doing [...] for further [facility]-Will keep patient NPO for [...] for further work up[facility]-Will keep patient NPO for [...] exposure,and dyspnea on exertion - will ask [facility] do an overnight oxygen study [...]
--- OUTSIDE RECORDS SUMMARY | 2018-12-10 18:40 | XMS REPORT | CCD ---
Author Author Laura Colin MD, [facility] Address [address] [place] [address] Phone Care Team Providers Care Senior Buyer Name Role Phone Karma Bahena PP Unavailable CCM Unavailable Summary Purpose Interface Exchange Insurance Providers Payer name Policy type / Coverage type Covered constitution party ID Effective Begin Date Effective End Date WPS Medicare Part B Medicare Part B [id number] 2013 Unknown AARP Medicare Part B [id number] 2013 Unknown Family history Father Diagnosis Age At Onset Cancer Unknown Mother Diagnosis Age At Onset Cancer Unknown Sister Diagnosis Age At Onset Cancer Unknown Brother Diagnosis Age At Onset Cancer Unknown Social History Social History Element Codes Description Effective Dates Marital status Unknown 03/15/2011 Living arrangements Unknown House 03/15/[address]: 368420689 Never smoker 03/15/2011 Has the patient ever used illegal drugs? 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 ICD-9: V58.69 ICD-10: Z79.899 [...] Condition Codes Effective Dates Condition Status Acute upper respiratory infection, unspecified ICD-9: 465.9 [...] I48.2 12/25/2013 Active Essential (primary) hypertension ICD-9: 401.9 ICD-10: [...] ICD-9: 706.2 ICD-10: L72.0 02/01/2016 Active 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 ICD-9: V58.69 ICD-10: Z79.899 [...] Fill Instructions lisinopril 20 mg tablet RxNorm: 030028 1 TABLET(S) PO DAILY 01/02/2017 05/31/2017 Active Zithromax Z-Claudio 250 mg tablet RxNorm: 807830 1 Tablet(s) PO UD 11/29/2016 12/03/2016 Inactive ZCRISTINA Keflex 500 mg capsule RxNorm: 228345 1 Capsule(s) PO TID 11/23/2016 12/02/2016 Inactive guaifenesin 400 mg tablet RxNorm: 749711 1 Tablet(s) PO Q6 as needed 11/23/2016 11/27/2016 Inactive omeprazole 40 mg capsule,delayed release RxNorm: 560110 1 Capsule(s) PO QPM 11/02/2016 04/30/2017 Active digoxin 125 mcg tablet RxNorm: 815647 1 TABLET(S) PO DAILY 10/27/2016 07/23/2017 Active cyclobenzaprine 5 mg tablet RxNorm: 020175 1/2 Tablet(s) PO Q8 PRN 10/25/2016 No Stop Date Active prn muscle spasms Augmentin 500 mg-125 mg tablet RxNorm: 067844 1 Tablet(s) PO BID 10/24/2016 11/02/2016 Inactive spironolactone 25 mg tablet RxNorm: 189654 1 Tablet(s) PO daily 07/27/2016 02/21/2017 Active Lasix 20 mg tablet RxNorm: 094071 Tablet(s) PRN one to two times a week if needed 07/27/2016 No Stop Date Active Patient requests 90 days supply Diflucan 150 mg tablet RxNorm: 282988 1 Tablet(s) PO daily 07/27/2016 08/02/2016 Inactive lisinopril 20 mg tablet RxNorm: 663339 1 Tablet(s) PO daily 07/12/2016 01/01/2017 Inactive Lasix 20 mg tablet RxNorm: 1 TABLET(S) PO EVERY OTHER DAY EVERY OTHER DAY 06/10/2016 07/26/2016 Inactive Patient requests 90 days supply potassium chloride ER 10 mEq capsule,extended release RxNorm: 790328 1 CAPSULE(S) PO EVERY OTHER DAY 06/10/2016 07/26/2016 Inactive Patient requests 90 days supply potassium chloride ER 10 mEq capsule,extended release RxNorm: 985098 1 Capsule(s) PO every other day 06/09/2016 06/09/2016 Inactive Lasix 20 mg tablet RxNorm: 1 Tablet(s) PO every other day every other day 06/09/2016 06/09/2016 Inactive levothyroxine 88 mcg tablet RxNorm: 476376 1 Tablet(s) PO daily 05/11/2016 11/06/2016 Inactive Premarin 0.625 mg/gram vaginal cream RxNorm: 552957 1/2 Gram(s) VAG TIW 03/24/2016 03/18/2017 Active metoprolol succinate ER 50 mg tablet,extended release 24 hr RxNorm: 938613 1 Tablet(s) PO daily 03/24/2016 03/18/2017 Active pantoprazole 40 mg tablet,delayed release RxNorm: 460076 1 Tablet(s) PO daily 02/08/2016 11/01/2016 Inactive betamethasone dipropionate 0.05 % topical ointment RxNorm: 612539 1 Application TOP TID use topically on the rectal tissue three times daily x 1 week then as needed 02/02/2016 No Stop Date Active pantoprazole 40 mg tablet,delayed release RxNorm: 581716 1 Tablet(s) PO daily 2016 02/07/2016 Inactive alprazolam 0.25 mg tablet RxNorm: 748770 1 Tablet(s) PO Q6 as needed 12/04/2015 No Stop Date Active Vesicare 10 mg tablet RxNorm: 392013 1 Tablet(s) PO every other day 11/03/2015 No Stop Date Active alprazolam 0.25 mg tablet RxNorm: 740245 1 Tablet(s) PO Q6 as needed 11/03/2015 12/03/2015 Inactive Premarin 0.625 mg/gram vaginal cream RxNorm: 869897 1/2 Gram(s) VAG TIW 11/03/2015 03/23/2016 Inactive levothyroxine 88 mcg tablet RxNorm: 926068 1 Tablet(s) PO daily 11/03/2015 05/10/2016 Inactive Diflucan 150 mg tablet RxNorm: 085419 1 Tablet(s) PO daily 10/19/2015 10/25/2015 Inactive cetirizine 10 mg chewable tablet RxNorm: 0837818 1 Tablet(s) PO daily 10/13/2015 11/11/2015 Inactive cetirizine 10 mg capsule RxNorm: 2947944 1 Capsule(s) PO daily 10/13/2015 11/11/2015 Inactive Vesicare 10 mg tablet RxNorm: 309942 1/2 TABLET(S) PO BID 09/21/2015 11/02/2015 Inactive betamethasone dipropionate 0.05 % topical ointment RxNorm: 415818 1 Application TOP TID use topically on the rectal tissue three times daily x 1 week then as needed 09/15/2015 02/01/2016 Inactive lisinopril 20 mg tablet RxNorm: 264695 1 Tablet(s) PO daily 09/01/2015 07/11/2016 Inactive digoxin 125 mcg tablet RxNorm: 852195 1 Tablet(s) PO daily 09/01/2015 08/25/2016 Inactive Augmentin 500 mg-125 mg tablet RxNorm: 024251 1 Tablet(s) PO TID 05/26/2015 06/04/2015 Inactive Pyridium 200 mg tablet RxNorm: 9229579 1 Tablet(s) PO TID 05/26/2015 05/27/2015 Inactive levothyroxine 88 mcg tablet RxNorm: 308138 1 Tablet(s) PO daily except 1/2 pill on monday and 05/07/2015 11/02/2015 Inactive digoxin 125 mcg tablet RxNorm: 321080 1 Tablet(s) PO daily 05/07/2015 08/31/2015 Inactive lisinopril 20 mg tablet RxNorm: 165421 1 TABLET(S) PO BID 04/13/2015 09/01/2015 Inactive Coumadin 1 mg tablet RxNorm: 771254 1 TABLET(S) PO DAILY 03/31/2015 08/31/2015 Inactive Coumadin 2 mg tablet RxNorm: 674926 4MG IN AM AND 1MG AT NIGHT TABLET(S) PO DAILY DIRECTED. 03/31/2015 08/31/2015 Inactive levothyroxine 88 mcg tablet RxNorm: 382128 1 Tablet(s) PO daily 03/23/2015 05/06/2015 Inactive alprazolam 0.25 mg tablet RxNorm: 840468 Tablet(s) PO 03/23/2015 04/06/2015 Inactive levothyroxine 88 mcg tablet RxNorm: 114154 1 Tablet(s) PO daily 01/28/2015 03/22/2015 Inactive levothyroxine 88 mcg tablet RxNorm: 206027 1 Tablet(s) PO daily 01/28/2015 01/27/2015 Inactive diltiazem ER 120 mg capsule,extended release RxNorm: 145172 1 Capsule(s) PO BID patient would like 4 months at a time 01/06/2015 09/28/2015 Inactive digoxin 125 mcg tablet RxNorm: 770045 Tablet(s) 1 TABLET(S) PO DAILY 12/24/2014 12/23/2014 Inactive pt will be paying palomares (On $4 list)Patient requests 90 days supply digoxin 125 mcg tablet RxNorm: 578305 Tablet(s) 1 TABLET(S) PO DAILY M W F Sat and 2 tabs on T TH 12/24/2014 05/06/2015 Inactive pt will be paying palomares (On $4 list)Patient requests 90 days supply dicyclomine 20 mg tablet RxNorm: 096498 1 Tablet(s) PO daily 11/17/2014 08/31/2015 Inactive one ac dinner and up to tid prn levothyroxine 88 mcg tablet RxNorm: 661325 1 Tablet(s) PO daily 11/03/2014 01/27/2015 Inactive Premarin 0.625 mg/gram vaginal cream RxNorm: 769621 1 APPLICATION VAG 1 APPLICATOR PER VAGINA 3 TIMES PER WEEK 11/03/2014 07/30/2015 Inactive digoxin 125 mcg tablet RxNorm: 433269 1 TABLET(S) PO DAILY 09/29/2014 12/23/2014 Inactive pt will be paying palomares (On $4 list)Patient requests 90 days supply digoxin 125 mcg tablet RxNorm: 141358 1 TABLET(S) PO DAILY 07/11/2014 04/06/2015 Inactive Vesicare 10 mg tablet RxNorm: 440388 1/2 Tablet(s) PO BID 05/20/2014 05/14/2015 Inactive Levaquin 500 mg tablet RxNorm: 163684 1 Tablet(s) PO daily 05/06/2014 05/08/2014 Inactive take probiotic BID while on ABT Levaquin 500 mg tablet RxNorm: 260897 1 Tablet(s) PO daily 05/02/2014 05/05/2014 Inactive take probiotic BID while on ABT diltiazem ER 120 mg capsule,extended release RxNorm: 724782 1 Capsule(s) PO BID patient would like 4 months at a time 04/29/2014 2015 Inactive Vesicare 10 mg tablet RxNorm: 637214 1/2 Tablet(s) PO BID 04/29/2014 05/19/2014 Inactive lisinopril 20 mg tablet RxNorm: 645105 1 Tablet(s) PO BID 03/20/2014 03/14/2015 Inactive diltiazem 90 mg tablet RxNorm: 095937 1/2 TABLET(S) PO QPM 03/04/2014 04/28/2014 Inactive also 180 q am diltiazem ER 120 mg capsule,extended release RxNorm: 238728 1 Capsule(s) PO daily patient would like 4 months at a time 01/29/2014 04/28/2014 Inactive Vesicare 10 mg tablet RxNorm: 369767 1 Tablet(s) PO QHS 01/14/2014 04/28/2014 Inactive Coumadin 2 mg tablet RxNorm: 457549 4mg in AM and 1mg at night Tablet(s) PO daily as directed. 12/25/2013 03/30/2015 Inactive Metanx 3 mg-35 mg-2 mg tablet RxNorm: 1 Tablet(s) PO daily 12/25/2013 11/02/2015 Inactive digoxin 125 mcg tablet RxNorm: 050667 1 Tablet(s) PO daily 12/25/2013 09/28/2014 Inactive pt will be paying palomares (On $4 list) Coumadin 2 mg tablet RxNorm: 853375 7.5 wed 5mg other Tablet(s) PO as directed. 12/03/2013 12/24/2013 Inactive omeprazole 20 mg tablet,delayed release RxNorm: 940291 1 Tablet(s) PO BID 11/27/2013 04/28/2014 Inactive Coumadin 2 mg tablet RxNorm: 711528 5 mg daily Tablet(s) PO as directed. 11/26/2013 12/02/2013 Inactive 5 mg daily Xanax 0.25 mg tablet RxNorm: 912209 1 Tablet(s) PO Q6 PRN 11/11/2013 12/25/2013 Inactive alprazolam 0.25 mg tablet RxNorm: 215395 tablet oral 11/11/2013 03/22/2015 Inactive sucralfate 1 gram tablet RxNorm: 687103 1 Tablet(s) PO AC & HS 11/04/2013 11/03/2013 Inactive sucralfate 1 gram tablet RxNorm: 746074 1 Tablet(s) PO AC & HS 11/04/2013 01/02/2014 Inactive Synthroid 100 mcg tablet RxNorm: 002505 1 Tablet(s) PO daily 10/31/2013 10/25/2014 Inactive Synthroid 100 mcg tablet RxNorm: 493412 1 Tablet(s) PO daily 09/30/2013 10/29/2013 Inactive Vesicare 10 mg tablet RxNorm: 171208 1 Tablet(s) PO QHS 09/30/2013 01/13/2014 Inactive Lotemax 0.5 % eye ointment RxNorm: 2981069 ointment opht 09/06/2013 12/10/2013 Inactive levothyroxine 100 mcg tablet RxNorm: 133632 tablet oral 09/05/2013 11/02/2014 Inactive Synthroid 100 mcg tablet RxNorm: 467469 1 Tablet(s) PO daily 09/05/2013 09/29/2013 Inactive Prolia 60 mg/mL Sub-Q Syringe RxNorm: 033424 1 Milliliter(s) SQ 06/25/2013 11/02/2015 Inactive dicyclomine 20 mg tablet RxNorm: 122790 1 Tablet(s) PO daily 06/24/2013 06/18/2014 Inactive one ac dinner and up to tid prn omeprazole 20 mg tablet,delayed release RxNorm: 636519 1 Tablet(s) PO BID 06/24/2013 11/26/2013 Inactive Cipro 500 mg tablet RxNorm: 337086 1 Tablet(s) PO BID 06/20/2013 06/26/2013 Inactive diltiazem ER 120 mg capsule,extended release RxNorm: 812674 1 Capsule(s) PO daily patient would like 4 months at a time 06/03/2013 01/28/2014 Inactive Coumadin 2 mg tablet RxNorm: 070824 as directed Tablet(s) PO as directed. 05/29/2013 11/25/2013 Inactive 5 mg daily Synthroid 88 mcg tablet RxNorm: 045058 1 Tablet(s) PO daily 04/24/2013 04/23/2013 Inactive Synthroid 88 mcg tablet RxNorm: 193607 1 Tablet(s) PO daily 04/24/2013 07/28/2013 Inactive Premarin 0.625 mg/gram vaginal cream RxNorm: 324773 1 Application VAG 1 applicator per vagina 3 times per week 04/23/2013 04/17/2014 Inactive Influenza Virus Vaccine 0.5 mL RxNorm: IM 04/23/2013 04/23/2013 Inactive digoxin 125 mcg tablet RxNorm: 715648 1 Tablet(s) PO daily 02/20/2013 04/20/2013 Inactive pt will be paying palomares (On $4 list) Digox 125 mcg tablet RxNorm: 6241401 tablet oral 02/13/2013 03/20/2014 Inactive digoxin 125 mcg tablet RxNorm: 187980 1 Tablet(s) PO daily 02/13/2013 02/19/2013 Inactive diltiazem 90 mg tablet RxNorm: 948336 1/2 Tablet(s) PO QPM 02/13/2013 02/07/2014 Inactive also 180 q am Levoxyl 75 mcg tablet RxNorm: 403874 1 Tablet(s) PO 01/16/2013 04/23/2013 Inactive Coumadin 2 mg tablet RxNorm: 000121 6mg daily except 3mg on wed and fri Tablet(s) PO 01/15/2013 05/28/2013 Inactive 5 mg daily Coumadin 2 mg tablet RxNorm: 459064 6mg daily Tablet(s) PO 12/21/2012 01/14/2013 Inactive 5 mg daily silver sulfadiazine 1 % Topical Cream RxNorm: 779940 TOP apply to affected area with each dressing change 12/19/2012 12/25/2013 Inactive cephalexin 500 mg tablet RxNorm: 864849 1 Tablet(s) PO TID 12/11/2012 12/17/2012 Inactive digoxin 125 mcg tablet RxNorm: 2467301 1 Tablet(s) PO daily 10/30/2012 02/12/2013 Inactive digoxin 125 mcg tablet RxNorm: 6849284 2 tab tue thurs one other days Tablet(s) PO daily 10/23/2012 10/29/2012 Inactive lisinopril 10 mg tablet RxNorm: 077460 1 Tablet(s) PO daily 10/17/2012 08/14/2013 Inactive Cipro 500 mg tablet RxNorm: 493017 1 Tablet(s) PO BID 09/13/2012 09/19/2012 Inactive Coumadin 1 mg tablet RxNorm: 341086 1 Tablet(s) PO daily 09/03/2012 09/02/2012 Inactive Coumadin 1 mg tablet RxNorm: 772982 1 Tablet(s) PO daily 09/03/2012 12/21/2012 Inactive Coumadin 2 mg tablet RxNorm: 982768 Tablet(s) PO 07/25/2012 12/20/2012 Inactive 5 mg daily digoxin 125 mcg tablet RxNorm: 3966052 1 Tablet(s) PO daily 06/28/2012 10/22/2012 Inactive Coumadin 2 mg tablet RxNorm: 833190 Tablet(s) PO 06/27/2012 07/24/2012 Inactive 5mg daily except 4mg on monday Coumadin 2 mg tablet RxNorm: 765497 Tablet(s) PO 06/19/2012 06/26/2012 Inactive 5mg e mon thur sat sun4mg mon(has 2mg and 1 mg tab) digoxin 125 mcg tablet RxNorm: 3006641 1 Tablet(s) PO daily 05/29/2012 06/27/2012 Inactive Coumadin 2 mg tablet RxNorm: 517421 Tablet(s) PO 05/15/2012 06/18/2012 Inactive 5mg tue thur sat sun4mg mond(has 2mg and 1 mg tab) Coumadin 2 mg tablet RxNorm: 095786 Tablet(s) PO 04/25/2012 05/14/2012 Inactive 5mg tue thru sat4mg mond sun(has 2mg and 1 mg tab) Metanx 3 mg-35 mg-2 mg tablet RxNorm: 1 Tablet(s) PO BID 04/18/2012 12/24/2013 Inactive dicyclomine 20 mg tablet RxNorm: 625844 1 Tablet(s) PO 04/18/2012 06/23/2013 Inactive one ac dinner and up to tid prn digoxin 125 mcg tablet RxNorm: 3051035 Tablet(s) PO daily except .25 on Tuesdays and 04/09/2012 05/28/2012 Inactive omeprazole 20 mg tablet,delayed release RxNorm: 488753 1 Tablet(s) PO BID 04/09/2012 04/03/2013 Inactive digoxin 125 mcg tablet RxNorm: 2830592 1 Tablet(s) PO UD daily except none on Tuesdays and 03/13/2012 04/08/2012 Inactive Premarin 0.625 mg/gram Vaginal Cream RxNorm: 322388 1 Application VAG 1 applicator per vagina 3 times per week 02/20/2012 02/13/2013 Inactive omeprazole 20 mg tablet,delayed release RxNorm: 124052 1 Tablet(s) PO BID 02/13/2012 04/08/2012 Inactive Vesicare 10 mg tablet RxNorm: 275979 1 Tablet(s) PO QHS 02/13/2012 02/06/2013 Inactive Diflucan 150 mg tablet RxNorm: 410233 1 Tablet(s) PO daily 02/13/2012 02/19/2012 Inactive omeprazole 20 mg tablet,delayed release RxNorm: 946746 1 Tablet(s) PO BID 01/06/2012 02/12/2012 Inactive Calcium 600 + D(3) 600 mg (1,500)-200 unit Tab RxNorm: 324926 2 Tablet(s) PO BID 01/06/2012 08/31/2015 Inactive diltiazem 90 mg tablet RxNorm: 466280 1/2 Tablet(s) PO QPM 12/26/2011 02/12/2013 Inactive also 180 q am diltiazem ER 180 mg Cap RxNorm: 848843 1 Capsule(s) PO QAM 12/26/2011 04/08/2012 Inactive 45mg q hs Flagyl 500 mg Tab RxNorm: 025981 1 Tablet(s) PO BID 12/14/2011 12/20/2011 Inactive dicyclomine 10 mg Cap RxNorm: 719079 1 Capsule(s) PO AC & HS 12/01/2011 12/25/2011 Inactive Levaquin 500 mg Tab RxNorm: 503043 1 Tablet(s) PO daily 11/23/2011 11/29/2011 Inactive Rocephin 500 mg Solution for Injection RxNorm: 002554 Inj 11/23/2011 11/23/2011 Inactive acyclovir 400 mg Tab RxNorm: 435773 1 Tablet(s) PO QID 11/10/2011 11/19/2011 Inactive acyclovir 400 mg Tab RxNorm: 507774 1 Tablet(s) PO QID 11/10/2011 11/09/2011 Inactive lisinopril 20 mg Tab RxNorm: 602481 1 Tablet(s) PO daily 10/03/2011 11/27/2011 Inactive lisinopril 20 mg Tab RxNorm: 498710 1 Tablet(s) PO daily 08/08/2011 10/02/2011 Inactive Reclast 5 mg/100 mL IV RxNorm: 451091 Milliliter(s) IV Yearly 06/08/2011 01/16/[address] Hansen manages Rocephin 500 mg Solution for Injection RxNorm: 516113 1 Milliliter(s) Inj 03/04/2011 08/08/2011 Inactive Ceftin 500 mg Tab RxNorm: 753300 1 Tablet(s) PO BID 03/04/2011 08/08/2011 Inactive Vitamin D3 1,000 unit tablet RxNorm: 162191 2 Tablet(s) PO daily No Start Date Active Carafate 100 mg/mL oral suspension RxNorm: 230181 2 Teaspoon(s) PO as needed with reflux symptoms No Start Date Active Stool Softener 100 mg tablet RxNorm: 8983742 2 Tablet(s) PO QHS No Start Date Active Beano tablet RxNorm: 2-3 Tablet(s) PO as needed No Start Date Active Probiotic Pearls 15 mg (1 billion cell) capsule,delayed release RxNorm: 1 Capsule(s) PO daily No Start Date Active Miralax 17 gram oral powder packet RxNorm: 711747 1/2 packet PO QHS No Start Date Active Eliquis 2.5 mg tablet RxNorm: 2757585 1 Tablet(s) PO BID No Start Date Active multivitamin Tab RxNorm: 1 Tablet(s) PO daily No Start Date Active Tylenol Extra Strength 500 mg tablet RxNorm: 515150 2 Tablet(s) PO as needed No Start Date Active Combigan 0.2 %-0.5 % eye drops RxNorm: 053847 1 Drop(s) OPH BID No Start Date Active 1 drop twice daily left eye Tatiana Allergy 180 mg tablet RxNorm: 914804 1 Tablet(s) PO daily No Start Date Active Symbicort 160 mcg-4.5 mcg/actuation HFA aerosol inhaler RxNorm: 8421446 2 Puff(s) INH BID No Start Date Active Lotemax 0.5 % eye drops,suspension RxNorm: 080824 1 Drop(s) OPH right eye BID No Start Date Active Levoxyl 50 mcg tablet RxNorm: 888915 1 Tablet(s) PO daily No Start Date 01/15/2013 Inactive lisinopril-hydrochlorothiazide 20 mg-25 mg Tab RxNorm: 595803 1 Tablet(s) PO daily No Start Date 08/07/2011 Inactive Metanx 3 mg-35 mg-2 mg tablet RxNorm: 1 Tablet(s) PO daily No Start Date 04/17/2012 Inactive diltiazem CD 120 mg capsule,extended release 24 hr RxNorm: 298657 1 Capsule(s) PO daily No Start Date 09/28/2015 Inactive lisinopril 20 mg tablet RxNorm: 831920 Tablet(s) PO No Start Date Active Lumigan 0.01 % Eye Drops RxNorm: 9345503 1 Drop(s) OPH daily Left eye No Start Date 12/10/2013 Inactive prednisolone acetate 1 % Eye Drops, Susp RxNorm: 2951011 1 Drop(s) OPH BID 1 drop right eye am and hs No Start Date 11/02/2015 Inactive Eliquis 5 mg tablet RxNorm: 2103324 1 Tablet(s) PO BID No Start Date 06/08/2016 Inactive potassium gluconate (bulk) Misc RxNorm: Miscellaneous No Start Date 12/25/2011 Inactive Calcium 600 + D(3) 600 mg (1,500)-200 unit Tab RxNorm: 680016 3 Tablet(s) PO daily No Start Date 2012 Inactive Zyrtec 10 mg tablet RxNorm: 0040189 1 Tablet(s) PO daily No Start Date 08/02/2016 Inactive Synthroid 100 mcg tablet RxNorm: 629645 1 Tablet(s) PO daily No Start Date 09/04/2013 Inactive metoprolol succinate ER 50 mg tablet,extended release 24 hr RxNorm: 130175 1 Tablet(s) PO daily No Start Date 03/23/2016 Inactive Metanx 3 mg-35 mg-2 mg tablet RxNorm: 1 Tablet(s) PO daily 2pm No Start Date 11/02/2015 Inactive Lexapro 5 mg tablet RxNorm: 731369 1 Tablet(s) PO daily No Start Date 08/18/2015 Inactive Iron (dried) oral RxNorm: 69281 oral No Start Date 11/02/2015 Inactive timolol 0.5 % Eye Drops RxNorm: 057841 1 Drop(s) OPH daily left eye No Start Date 12/18/2013 Inactive multivitamin Cap RxNorm: 1 Capsule(s) PO daily No Start Date 12/25/2011 Inactive dicyclomine 10 mg Cap RxNorm: 335375 2 Capsule(s) PO daily No Start Date 11/30/2011 Inactive silver sulfadiazine 1 % Topical Cream RxNorm: 700507 TOP apply to affected area with each dressing change No Start Date 12/18/2012 Inactive magnesium oxide 400 mg Tab RxNorm: 517891 1 Tablet(s) PO daily No Start Date 11/02/2015 Inactive Pradaxa 75 mg Cap RxNorm: 9371135 1 Capsule(s) PO BID No Start Date 04/09/2012 Inactive magnesium oxide 400 mg Tab RxNorm: 620935 2 Tablet(s) PO daily magnesium plus zinc No Start Date 12/25/2011 Inactive biotin 1000 mg RxNorm: 1 PO daily No Start Date 12/25/2011 Inactive Synthroid 50 mcg Tab RxNorm: 507460 Tablet(s) PO No Start Date 12/25/2011 Inactive diltiazem ER 180 mg Cap RxNorm: 342802 1 Capsule(s) PO daily No Start Date 12/25/2011 Inactive 1 D 3 1000 iu Oral RxNorm: Oral No Start Date 12/25/2011 Inactive Coumadin 2 mg tablet RxNorm: 964723 Tablet(s) PO No Start Date 04/24/2012 Inactive 5mg tue glmb4ns mon fri sat sun(has 2mg and 1 mg tab) dicyclomine 20 mg tablet RxNorm: 777113 Tablet(s) PO No Start Date 04/17/2012 Inactive one ac dinner and up to tid prn lactobacillus acidophilus tablet RxNorm: 1 Tablet(s) PO daily No Start Date 11/03/2015 Inactive Levoxyl 75 mcg Tab RxNorm: 211606 1 Tablet(s) PO daily No Start Date 10/02/2011 Inactive digoxin 125 mcg tablet RxNorm: 3450480 1 Tablet(s) PO daily No Start Date 03/12/2012 Inactive pantoprazole 40 mg tablet,delayed release RxNorm: 475067 1 Tablet(s) PO BID No Start Date 01/04/2016 Inactive cyclobenzaprine 5 mg tablet RxNorm: 432989 1/2 Tablet(s) PO Q8 PRN No Start Date 10/24/2016 Inactive diltiazem 90 mg Tab RxNorm: 790321 1/2 Tablet(s) PO QPM No Start Date 12/25/2011 Inactive Mirapex 1 mg Tab RxNorm: 674290 1 Tablet(s) PO QHS No Start Date 12/25/2011 Inactive Xanax 0.25 mg tablet RxNorm: 577626 1 Tablet(s) PO Q6 PRN No Start Date 11/10/2013 Inactive Premarin 0.625 mg/gram Vaginal Cream RxNorm: 042077 1 Application VAG 1 applicator per vagina 3 times per week No Start Date 02/19/2012 Inactive Synthroid 75 mcg Tab RxNorm: 284443 1 Tablet(s) PO daily No Start Date 04/17/2012 Inactive lisinopril 40 mg Tab RxNorm: 627741 1 Tablet(s) PO daily No Start Date 12/25/2011 Inactive Glucosamine Chondroitin Complex Advanced [id number] Tab RxNorm: 2 Tablet(s) PO daily No Start Date 08/08/2011 Inactive famotidine 20 mg tablet RxNorm: 372148 1 Tablet(s) PO QAM No Start Date 11/02/2015 Inactive cranberry extract 250 mg Tab RxNorm: 038790 2 Tablet(s) PO daily No Start Date 08/08/2011 Inactive Vitamin D3 1,000 unit capsule RxNorm: 083407 1 Capsule(s) PO daily No Start Date 08/31/2015 Inactive aspirin 81 mg Tab, Delayed Release RxNorm: 973462 1 Tablet(s) PO daily No Start Date 08/31/2015 Inactive diltiazem ER 120 mg capsule,extended release RxNorm: 350473 1 Capsule(s) PO daily patient would like 4 months at a time No Start Date 06/02/2013 Inactive omeprazole 20 mg Tab, Delayed Release RxNorm: 951981 2 Tablet(s) PO QHS No Start Date 2012 Inactive lisinopril 10 mg tablet RxNorm: 022791 1/2 Tablet(s) PO daily No Start Date 10/16/2012 Inactive Pred Forte 1 % Eye Drops RxNorm: 913624 1 Drop(s) OPH daily right eye No Start Date 12/25/2013 Inactive calcium carbonate 400 mg Chewable Tab RxNorm: 737922 1 Tablet(s) PO daily No Start Date 08/08/2011 Inactive Vesicare 10 mg tablet RxNorm: 713147 1 Tablet(s) PO QHS No Start Date 02/12/2012 Inactive potassium 99 mg tablet RxNorm: 1 Tablet(s) PO QPM No Start Date 12/25/2013 Inactive timolol 0.25 % Eye Drops RxNorm: 991885 1 Drop(s) OPH daily Left eye No Start Date 04/17/2012 Inactive diltiazem ER 90 mg capsule,extended release 12 hr RxNorm: 555142 1/2 Capsule(s) PO QPM No Start Date 04/28/2014 Inactive cyclobenzaprine 5 mg Tab RxNorm: 398307 1/2-1 Tablet(s) PO Q8 PRN No Start Date 12/25/2011 Inactive 1/2 - 1 tab q 8hrs prn muscle spasms Medication Administered Medication Codes Instructions Start Date Status Influenza Virus Vaccine 0.5 mL RxNorm: 04/23/2013 No longer Active Rocephin 500 mg Solution for Injection RxNorm: 354763 11/23/2011 No longer Active Immunizations Vaccine Codes Date Status Influenza CVX: 141 03/24/2016 completed PPD Unknown 10/19/2015 completed Pneumococcal (Adult) CVX: 133 05/13/2015 completed Pneumococcal (Adult) CVX: 133 05/13/2015 completed Pneumococcal (Adult) CVX: 33 07/11/2014 completed Influenza CVX: 141 03/20/2014 completed Influenza CVX: 141 04/23/2013 completed Influenza CVX: 141 04/18/2012 completed Assessments Condition Codes Effective Dates Cough ICD-10: R05 ICD-9: 786.2 11/29/2016 Acute upper respiratory infection, unspecified ICD-10: J06.9 ICD-9: 465.9 11/29/2016 Acute laryngopharyngitis ICD-10: J06.0 ICD-9: 465.0 11/23/2016 Laceration without foreign body of right forearm, subsequent encounter ICD-10: S51.811D ICD-9: V58.89 11/17/2016 Atrophy of thyroid (acquired) ICD-10: E03.4 ICD-9: 244.8 11/02/2016 Chronic atrial fibrillation ICD-10: I48.2 ICD-9: 427.31 11/02/2016 Laceration without foreign body of right [...] hemorrhoids ICD-10: K64.0 ICD-9: 455.6 03/24/2016 Other correction (current) drug therapy ICD-10: Z79.899 ICD-9: V58.69 [...] For Visit Effective Dates Notes sore throat 11/29/2016 sore throat 11/23/2016 sore [...] Code Item Item Code Result Date C CASE Lo SC 9339189 Strep A Negative 11/21/2016 Thyroid Antibodies 671378 THYROGLOBULIN ANTIBODY . 11/04/2016 Thyroid Antibodies 003692 THYROGLOBULIN ANTIBODY 919 IU/mL 11/04/2016 Thyroid Antibodies 094273 THYROID PEROXIDASE (TPO) AB . 11/04/2016 Thyroid Antibodies 916503 THYROID PEROXIDASE (TPO) AB 10 IU/mL 11/04/2016 Total T3 Ord42 TT3 0.64 ng/ml 11/03/2016 Free T4 Blf129 FREE T4 1.39 ng/dL 11/02/2016 Tsh Ord6 [...] Differential Ord2 RDW 13.8 % 05/26/2015 Pt Tur0550 PT 25.0 seconds 05/26/2015 Pt Ksy5995 INR 2.4 05/26/2015 Pt Vtr2240 Low Intensity - 1.5-2.0 05/26/2015 Pt Pkc8345 Mod intensity - 2.0-3.0 05/26/2015 Pt Kly6461 Hi intensity - 3.0-4.0 05/26/2015 Uric Acid [...] Digoxin Ord9 DIGOXIN 0.6 NG/ML 05/06/2015 Pt Xxr5702 PT 23.3 seconds 05/06/2015 Pt Erh1394 INR 2.1 05/06/2015 Pt Gmr9587 Low Intensity - 1.5-2.0 05/06/2015 Pt Dyw9165 Mod intensity - 2.0-3.0 05/06/2015 Pt Bdw0014 Hi intensity - 3.0-4.0 05/06/2015 Free T4 Xjz369 FREE T4 1.65 ng/dL 05/06/2015 Comp Metabolic Sjd166 NA 132 mEq/L 05/06/2015 Comp Metabolic Vvm986 K 4.1 mEq/L 05/06/2015 Comp Metabolic Orr121 CL 98 mEq/L 05/06/2015 Comp Metabolic Rct249 CO2 27.0 mEq/L 05/06/2015 Comp Metabolic Ljx506 ANION GAP 11 05/06/2015 Comp Metabolic Jhg896 GLUCOSE 71 mg/dL 05/06/2015 Comp Metabolic Bcu975 Creat 0.7 mg/dL 05/06/2015 Comp Metabolic Yan029 eGFR 82 ml/min/1.73m2 05/06/2015 Comp Metabolic Suz281 BUN 16 mg/dL 05/06/2015 Comp Metabolic Lmr876 B/C Ratio 22.2 Ratio 05/06/2015 Comp Metabolic Ual335 CALCIUM 9.4 mg/dL 05/06/2015 Comp Metabolic Qbm748 ALK PHOS 60 U/L 05/06/2015 Comp Metabolic Wqd243 AST(SGOT) 22 U/L 05/06/2015 Comp Metabolic Hml663 ALT(SGPT) 24 U/L 05/06/2015 Comp Metabolic Jbl555 BILI T 0.8 mg/dL 05/06/2015 Comp Metabolic Vnt459 ALBUMIN 4.3 g/dL 05/06/2015 Comp Metabolic Emc418 TPRO 7.6 g/dL 05/06/2015 Comp Metabolic Xuh390 GLOB 3.3 g/dL 05/06/2015 Comp Metabolic Dcq007 A/G Ratio 1.3 Ratio 05/06/2015 Comp Metabolic Elt172 Osmo 264 mOsmo 05/06/2015 DIGOXIN 8065570 DIGOXIN 1.1 NG/ML 05/15/2013 PT/MC 0181380 PRO TIME 21.7 SEC 05/15/2013 PT/MC 1130325 INR MCMC 2.0 05/15/2013 CHEM 14 7534611 AST 24 U/L 04/23/2013 CHEM 14 0981147 ALT 31 IU/L 04/23/2013 CHEM 14 0679954 BUN 13 MG/DL 04/23/2013 CHEM 14 7900439 ALBUMIN 4.1 GM/DL 04/23/2013 CHEM 14 7802796 CHLORIDE 103 MMOL/L 04/23/2013 CHEM 14 4745000 BILI TOT 0.5 MG/DL 04/23/2013 CHEM 14 4350772 ALK PHOS 44 U/L 04/23/2013 CHEM 14 2485919 SODIUM 137 MMOL/L 04/23/2013 CHEM 14 6104079 CREATININE 0.61 MG/DL 04/23/2013 CHEM 14 8361710 CALCIUM 9.5 MG/DL 04/23/2013 CHEM 14 3095893 POTASSIUM 4.0 MMOL/L 04/23/2013 CHEM 14 1519038 PROT TOT 6.6 GM/DL 04/23/2013 CHEM 14 1703161 GLUCOSE 99 MG/DL 04/23/2013 CHEM 14 0887231 BICARB 27 MMOL/L 04/23/2013 CHEM 14 8861819 ANION GAP 7 MEQ/L 04/23/2013 GFR CALC 5249485 GFR AA >60 ML/MIN 04/23/2013 GFR CALC 8341903 GFR NON-AA >60 ML/MIN 04/23/2013 TSH 8302412 TSH 4.204 uIU/ML 04/23/2013 CBC 8916994 WBC 6.7 10e9/L 04/23/2013 CBC 3343593 RBC 4.19 10e12/L 04/23/2013 CBC 7954613 HGB 13.2 g/dL 04/23/2013 CBC 3737258 HCT DET 39.2 % 04/23/2013 CBC 1093886 MCV 93.6 fL 04/23/2013 CBC 8522227 MCH 31.5 pg 04/23/2013 CBC 7110291 MCHC 33.7 g/dL 04/23/2013 CBC 0928503 PLT 202 10e9/L 04/23/2013 CBC 9973965 MPV 11.4 fL 04/23/2013 CBC 3481628 YANIRA % 70.5 % 04/23/2013 CBC 4306507 LY % 19.6 % 04/23/2013 CBC 5524434 MON % 8.2 % 04/23/2013 CBC 8361295 EOS % 1.6 % 04/23/2013 CBC 5982969 BASO % 0.1 % 04/23/2013 CBC 6760323 RDW 13.7 % 04/23/2013 CBC 0827700 ABS YANIRA 4.72 10e9/L 04/23/2013 CBC 8012933 ABS LYMPH 1.31 10e9/L 04/23/2013 CBC 3249632 ABS MONO 0.55 10e9/L 04/23/2013 CBC 1032721 ABS EOS 0.11 10e9/L 04/23/2013 CBC 3672590 ABS BASO 0.01 10e9/L 04/23/2013 CBC 0473594 RDW-SD 45.7 fL 04/23/2013 PT/MC 6511870 PRO TIME 13.4 SEC 12/17/2012 PT/MC 0335669 INR MCMC 1.0 12/17/2012 PT/MC 4485622 PRO TIME 16.6 SEC 12/14/2012 PT/MC 5708812 INR MCMC 1.4 12/14/2012 PT/MC 1838121 PRO TIME 27.2 SEC 12/11/2012 PT/MC 3712770 INR MCMC 2.6 12/11/2012 DIGOXIN 3626983 DIGOXIN 2.1 NG/ML 03/08/2012 GFR CALC 8563140 GFR AA >60 ML/MIN 03/08/2012 GFR CALC 6561392 GFR NON-AA >60 ML/MIN 03/08/2012 CHEM 14 8321065 AST 16 U/L 03/08/2012 CHEM 14 6764295 ALT 14 IU/L 03/08/2012 CHEM 14 5486807 BUN 10 MG/DL 03/08/2012 CHEM 14 8628509 ALBUMIN 4.2 GM/DL 03/08/2012 CHEM 14 8793633 CHLORIDE 100 MMOL/L 03/08/2012 CHEM 14 2918514 BILI TOT 0.5 MG/DL 03/08/2012 CHEM 14 6600928 ALK PHOS 59 U/L 03/08/2012 CHEM 14 2757494 SODIUM 136 MMOL/L 03/08/2012 CHEM 14 4618416 CREATININE 0.65 MG/DL 03/08/2012 CHEM 14 0620981 CALCIUM 9.4 MG/DL 03/08/2012 CHEM 14 8833391 POTASSIUM 3.9 MMOL/L 03/08/2012 CHEM 14 4069351 PROT TOT 6.7 GM/DL 03/08/2012 CHEM 14 2645547 GLUCOSE 90 MG/DL 03/08/2012 CHEM 14 8428437 BICARB 30 MMOL/L 03/08/2012 CHEM 14 7812352 ANION GAP 6 MEQ/L 03/08/2012 CHEM 14 6541750 AST 16 U/L 11/23/2011 CHEM 14 6350553 ALT 14 IU/L 11/23/2011 CHEM 14 7533283 BUN 11 MG/DL 11/23/2011 CHEM 14 9773618 ALBUMIN 4.1 GM/DL 11/23/2011 CHEM 14 2806519 CHLORIDE 100 MMOL/L 11/23/2011 CHEM 14 6364613 BILI TOT 0.5 MG/DL 11/23/2011 CHEM 14 9613356 ALK PHOS 50 U/L 11/23/2011 CHEM 14 0610443 SODIUM 135 MMOL/L 11/23/2011 CHEM 14 3854859 CREATININE 0.57 MG/DL 11/23/2011 CHEM 14 5479996 CALCIUM 9.1 MG/DL 11/23/2011 CHEM 14 0670417 POTASSIUM 4.5 MMOL/L 11/23/2011 CHEM 14 6989926 PROT TOT 6.5 GM/DL 11/23/2011 CHEM 14 7372762 GLUCOSE 89 MG/DL 11/23/2011 CHEM 14 4823481 BICARB 28 MMOL/L 11/23/2011 CHEM 14 4610748 ANION GAP 7 MEQ/L 11/23/2011 GFR CALC 7636417 GFR AA >60 ML/MIN 11/23/2011 GFR CALC 9576711 GFR NON-AA >60 ML/MIN 11/23/2011 CBC 8904272 WBC 5.1 10e9/L 11/23/2011 CBC 5668670 RBC 4.06 10e12/L 11/23/2011 CBC 5352061 HGB 12.5 g/dL 11/23/2011 CBC 2576096 HCT DET 37.3 % 11/23/2011 CBC 5427868 MCV 91.9 fL 11/23/2011 CBC 0139803 MCH 30.8 pg 11/23/2011 CBC 2475140 MCHC 33.5 g/dL 11/23/2011 CBC 7059492 PLT 222 10e9/L 11/23/2011 CBC 1496598 MPV 10.8 fL 11/23/2011 CBC 8499831 YANIRA % 64.2 % 11/23/2011 CBC 0074325 LY % 22.3 % 11/23/2011 CBC 3438621 MON % 11.3 % 11/23/2011 CBC 8477809 EOS % 1.8 % 11/23/2011 CBC 9828460 BASO % 0.4 % 11/23/2011 CBC 9745506 RDW 13.6 % 11/23/2011 CBC 0186110 ABS YANIRA 3.27 10e9/L 11/23/2011 CBC 9395705 ABS LYMPH 1.14 10e9/L 11/23/2011 CBC 6678731 ABS MONO 0.58 10e9/L 11/23/2011 CBC 4249834 ABS EOS 0.09 10e9/L 11/23/2011 CBC 1189658 ABS BASO 0.02 10e9/L 11/23/2011 CBC 8700192 RDW-SD 44.5 fL 11/23/2011 UA 86299 Specific [place] 1.005 03/04/2011 UA 07313 PH 6 03/04/2011 UA 21102 GLUCOSE N 03/04/2011 UA 33968 Protein N 03/04/2011 UA 39503 Blood ++ 03/04/2011 UA 64463 Bilirubin N 03/04/2011 UA 38730 Ketones N 03/04/2011 UA 31761 Urobilinogen N 03/04/2011 UA 70277 Nitrite N 03/04/2011 UA 98053 Leukocytes N 03/04/2011 URINALYSIS NONAUTO W/O SCOPE 97530 Specific [place] 1.010 DateTime(Free Text in Aprima) URINALYSIS NONAUTO W/O SCOPE 14015 PH 6.5 DateTime(Free Text in Aprima) URINALYSIS NONAUTO W/O SCOPE 75703 GLUCOSE neg DateTime(Free Text in Aprima) URINALYSIS NONAUTO W/O SCOPE 46739 Protein neg DateTime(Free Text in Aprima) URINALYSIS NONAUTO W/O SCOPE 00003 Blood 3+ DateTime(Free Text in Aprima) URINALYSIS NONAUTO W/O SCOPE 55455 Bilirubin neg DateTime(Free Text in Aprima) URINALYSIS NONAUTO W/O SCOPE 38820 Ketones neg DateTime(Free Text in Aprima) URINALYSIS NONAUTO W/O SCOPE 28882 Urobilinogen neg DateTime(Free Text in Aprima) URINALYSIS NONAUTO W/O SCOPE 13068 Nitrite neg DateTime(Free Text in Aprima) URINALYSIS NONAUTO W/O SCOPE 20535 Leukocytes neg DateTime(Free Text in Aprima) URINALYSIS NONAUTO W/O SCOPE 59314 Specific [place] 1.010 DateTime(Free Text in Aprima) URINALYSIS NONAUTO W/O SCOPE 17569 PH 5 DateTime(Free Text in Aprima) URINALYSIS NONAUTO W/O SCOPE 13618 GLUCOSE neg DateTime(Free Text in Aprima) URINALYSIS NONAUTO W/O SCOPE 70590 Protein neg DateTime(Free Text in Aprima) URINALYSIS NONAUTO W/O SCOPE 09097 Blood 3+ DateTime(Free Text in Aprima) URINALYSIS NONAUTO W/O SCOPE 98815 Bilirubin neg DateTime(Free Text in Aprima) URINALYSIS NONAUTO W/O SCOPE 22646 Ketones neg DateTime(Free Text in Aprima) URINALYSIS NONAUTO W/O SCOPE 51785 Urobilinogen neg DateTime(Free Text in Aprima) URINALYSIS NONAUTO W/O SCOPE 76152 Nitrite neg DateTime(Free Text in Aprima) URINALYSIS NONAUTO W/O SCOPE 20462 Leukocytes neg DateTime(Free Text in Aprima) URINALYSIS NONAUTO W/O SCOPE 04291 Specific [place] 1.005 DateTime(Free Text in Aprima) URINALYSIS NONAUTO W/O SCOPE 29524 PH 8.5 DateTime(Free Text in Aprima) URINALYSIS NONAUTO W/O SCOPE 71335 GLUCOSE neg DateTime(Free Text in Aprima) URINALYSIS NONAUTO W/O SCOPE 56612 Protein neg DateTime(Free Text in Aprima) URINALYSIS NONAUTO W/O SCOPE 01944 Blood 1+ DateTime(Free Text in Aprima) URINALYSIS NONAUTO W/O SCOPE 75804 Bilirubin neg DateTime(Free Text in Aprima) URINALYSIS NONAUTO W/O SCOPE 89087 Ketones neg DateTime(Free Text in Aprima) URINALYSIS NONAUTO W/O SCOPE 27508 Urobilinogen neg DateTime(Free Text in Aprima) URINALYSIS NONAUTO W/O SCOPE 09952 Nitrite neg DateTime(Free Text in Aprima) URINALYSIS NONAUTO W/O SCOPE 31374 Leukocytes neg DateTime(Free Text in Aprima) URINALYSIS NONAUTO W/O SCOPE 23562 Specific [place] 1.005 DateTime(Free Text in Aprima) URINALYSIS NONAUTO W/O SCOPE 39179 PH 7 DateTime(Free Text in Aprima) URINALYSIS NONAUTO W/O SCOPE 05815 GLUCOSE neg DateTime(Free Text in Aprima) URINALYSIS NONAUTO W/O SCOPE 26670 Protein neg DateTime(Free Text in Aprima) URINALYSIS NONAUTO W/O SCOPE 19770 Blood large DateTime(Free Text in Aprima) URINALYSIS NONAUTO W/O SCOPE 46002 Bilirubin neg DateTime(Free Text in Aprima) URINALYSIS NONAUTO W/O SCOPE 34473 Ketones neg DateTime(Free Text in Aprima) URINALYSIS NONAUTO W/O SCOPE 18818 Urobilinogen 0.2 DateTime(Free Text in Aprima) URINALYSIS NONAUTO W/O SCOPE 05715 Nitrite neg DateTime(Free Text in Aprima) URINALYSIS NONAUTO W/O SCOPE 87899 Leukocytes neg DateTime(Free Text in Aprima) URINALYSIS NONAUTO W/O SCOPE 15642 Specific [place] 1.005 DateTime(Free Text in Aprima) URINALYSIS NONAUTO W/O SCOPE 42355 PH 7.5 DateTime(Free Text in Aprima) URINALYSIS NONAUTO W/O SCOPE 22052 GLUCOSE DateTime(Free Text in Aprima) URINALYSIS NONAUTO W/O SCOPE 17119 Protein trace DateTime(Free Text in Aprima) URINALYSIS NONAUTO W/O SCOPE 81133 Blood 4+ DateTime(Free Text in Aprima) URINALYSIS NONAUTO W/O SCOPE 09865 Bilirubin DateTime(Free Text in Apr) URINALYSIS NONAUTO W/O SCOPE 61388 Ketones DateTime(Free Text in Aprima) URINALYSIS NONAUTO W/O SCOPE 49046 Urobilinogen DateTime(Free Text in Aprima) URINALYSIS NONAUTO W/O SCOPE 80385 Nitrite DateTime(Free Text in ) URINALYSIS NONAUTO W/O SCOPE 56987 Leukocytes trace DateTime(Free Text in ) Review of Systems System Result Effective Dates Constitutional recent illness 11/29/2016 Constitutional No chills [...] Result Effective Dates Notes Full Exam - ENT Constitutional general appearance [...] station 09/01/2015 None Full Exam - General 1995 Neurologic deep tendon reflexes Overall: deep tendon [...] Codes Date URINALYSIS NONAUTO W/O SCOPE CPT-4: 18400Mpvvhvr 05/17/2016 ADMIN INFLUENZA VIRUS VAC CPT-4: V9914Gcajnny 03/24/2016 FLU VACC PRSV FREE INC ANTIG CPT-4: 80579Zneosom 03/24/2016 ADMIN PNEUMOCOCCAL VACCINE SNOMED CT: 50915757 CPT-4: Q2746Rzucjvm 05/13/2015 PNEUMOCOCCAL VACC [address]: 08523168 CPT-4: 11309Gyhcfyn 05/13/2015 Pneumococcal Polysaccharide Vaccine, 23-Valent, Ad Assigned to/Mela Bledsoe CPT-4: 15244Yuwlxmd 07/11/2014 ADMIN PNEUMOCOCCAL VACCINE SNOMED CT: 26494417 CPT-4: K5154Gqdtbxj 07/11/2014 URINALYSIS NONAUTO W/O SCOPE CPT-4: 59529Bgumstw 05/14/2014 URINALYSIS NONAUTO W/O SCOPE CPT-4: 83584Pbaejho 05/06/2014 URINALYSIS NONAUTO W/O SCOPE CPT-4: 20198Duzuxaz 04/29/2014 ADMIN INFLUENZA VIRUS VAC CPT-4: L5086Ihouszn 03/20/2014 FLU VAC NO PRSV 4 SCOTT 3 YRS+ Assigned to/Mela Bledsoe CPT-4: 38435Nbamyyf 03/20/2014 URINALYSIS NONAUTO W/O SCOPE CPT-4: 93453Lsvubmx 07/29/2013 URINALYSIS NONAUTO W/O SCOPE CPT-4: 61947Etfxxzf 07/01/2013 URINALYSIS NONAUTO W/O SCOPE CPT-4: 29231Oebdbhx 06/20/2013 ROUTINE VENIPUNCTURE CPT-4: 17736Ozjkqds 05/15/2013 ROUTINE VENIPUNCTURE CPT-4: 58771Arhrmls 04/23/2013 ADMIN INFLUENZA VIRUS VAC CPT-4: Y0636Qgiwmbd 04/23/2013 FLULAVAL VACC, 3 YRS & >, IM CPT-4: D2231Nimdkuk 04/23/2013 ROUTINE VENIPUNCTURE CPT-4: 53399Qgtholm 12/17/2012 ROUTINE VENIPUNCTURE CPT-4: 77614Ikozifo 12/14/2012 ROUTINE VENIPUNCTURE CPT-4: 85972Oazzjvs 12/11/2012 PRESCRIP TRANSMIT VIA ERX SY CPT-4: D0200Mlxasyu 12/11/2012 PRESCRIP TRANSMIT VIA ERX SY CPT-4: Q3886Frceujx 10/30/2012 URINALYSIS NONAUTO W/O SCOPE CPT-4: 17249Xpjpjxx 09/13/2012 ADMIN INFLUENZA VIRUS VAC CPT-4: I1000Anocrck 04/18/2012 FLULAVAL VACC, 3 YRS & >, IM CPT-4: R0110Ycdpzrl 04/18/2012 URINALYSIS NONAUTO W/O SCOPE CPT-4: 97095Vicfeda 03/13/2012 ROUTINE VENIPUNCTURE CPT-4: 71178Snloaif 03/08/2012 URINALYSIS NONAUTO W/O SCOPE CPT-4: 63934Xvlouof 02/13/2012 PRESCRIP TRANSMIT VIA ERX SY CPT-4: N9692Zxctedm 02/13/2012 ROCEPHIN, PER 250 MG CPT-4: H6443Bpfuhul 11/23/2011 ROUTINE VENIPUNCTURE CPT-4: 78798Yxacwnd 11/23/2011 URINALYSIS NONAUTO W/O SCOPE CPT-4: 74280Awqknpa 11/23/2011 PRESCRIP TRANSMIT VIA ERX SY CPT-4: T4381Yjqfivo 11/23/2011 REMOVE IMPACTED EAR WAX UNI CPT-4: 76969Qnloxjx 10/17/2011 PRESCRIP TRANSMIT VIA ERX SY CPT-4: E3540Blxnoxy 10/03/2011 PRESCRIP TRANSMIT VIA ERX SY CPT-4: K7580Ndtrblz 08/08/2011 URINALYSIS NONAUTO W/O SCOPE CPT-4: 29295Evogzte 03/15/2011 URINALYSIS NONAUTO W/O SCOPE CPT-4: 20937Yfvptae 03/04/2011 THER/PROPH/DIAG INJ SC/IM CPT-4: 14376Hfjjzmi 03/04/2011 ROCEPHIN, PER 250 MG CPT-4: V4712Tipeuqc 03/04/2011 Vital Signs Date Vital 11/29/2016 Blood Pressure 1: 126/68 Code: 8480-6 Height: 5' Weight: 11/23/2016 Blood Pressure 1: 130/72 Code: 8480-6 BMI: 21.9 Code: 68240-8 Heart Rate 1: 48 bpm Height: 5' SpO2: 97% Temperature: 36.7 (C) / 98.0 (F) Weight: 112 lbs 11/21/2016 Blood Pressure 1: 134/76 Code: 8480-6 BMI: 21.9 Code: 76657-0 Heart Rate 1: 41 bpm Height: 5' SpO2: 94% Temperature: 36.9 (C) / 98.4 (F) Weight: 112 lbs 11/08/2016 Blood Pressure 1: 126/74 Code: 8480-6 Heart Rate 1: 82 bpm Height: 5' SpO2: 94% Weight: 11/02/2016 Blood Pressure 1: 112/66 Code: 8480-6 Heart Rate 1: 72 bpm Height: 5' SpO2: 95% Weight: 10/27/2016 Blood Pressure 1: 130/64 Code: 8480-6 BMI: 21.7 Code: 84647-0 Heart Rate 1: 81 bpm Height: 5' SpO2: 96% Weight: 111 lbs 08/31/2016 Blood Pressure 1: 132/72 Code: 8480-6 BMI: 22.5 Code: 57289-7 Heart Rate 1: 66 bpm Height: 5' Weight: 115 lbs 07/27/2016 Blood Pressure 1: 166/74 Code: 8480-6 BMI: 23.2 Code: 15071-5 Heart Rate 1: 48 bpm Height: 5' SpO2: 90% Temperature: 36.8 (C) / 98.2 (F) Weight: 119 lbs 06/23/2016 Blood Pressure 1: 128/70 Code: 8480-6 BMI: 22.3 Code: 47583-0 Heart Rate 1: 75 bpm Height: 5' SpO2: 97% Weight: 114 lbs 06/09/2016 BMI: 22.7 Code: 14155-8 Heart Rate 1: 73 bpm Height: 5' SpO2: 97% Weight: 116 lbs 05/25/2016 Blood Pressure 1: 138/62 Code: 8480-6 BMI: 22.8 Code: 02244-1 Heart Rate 1: 76 bpm Height: 5' Weight: 117 lbs 05/17/2016 Blood Pressure 1: 116/70 Code: 8480-6 BMI: 22.8 Code: 91758-0 Heart Rate 1: 74 bpm Height: 5' SpO2: 94% Weight: 117 lbs 03/24/2016 Blood Pressure 1: 154/78 Code: 8480-6 BMI: 22.5 Code: 24159-8 Heart Rate 1: 78 bpm Height: 5' SpO2: 97% Weight: 115 lbs 02/02/2016 Blood Pressure 1: 132/70 Code: 8480-6 BMI: 22.3 Code: 27664-0 Heart Rate 1: 74 bpm Height: 5' SpO2: 94% Weight: 114 lbs 2016 Blood Pressure 1: 120/62 Code: 8480-6 BMI: 22.0 Code: 30241-3 Heart Rate 1: 68 bpm Height: 5' Weight: 112 lbs 8 oz 12/21/2015 Blood Pressure 1: 122/82 Code: 8480-6 BMI: 21.9 Code: 23254-9 Heart Rate 1: 83 bpm Height: 5' SpO2: 93% Temperature: 37.1 (C) / 98.7 (F) Weight: 112 lbs 11/03/2015 Blood Pressure 1: 122/72 Code: 8480-6 BMI: 22.4 Code: 05819-5 Heart Rate 1: 62 bpm Height: 5' Weight: 114 lbs 8 oz 10/19/2015 Blood Pressure 1: 138/62 Code: 8480-6 BMI: 21.1 Code: 94925-0 Heart Rate 1: 79 bpm Height: 5' Weight: 108 lbs 10/13/2015 Blood Pressure 1: 120/62 Code: 8480-6 BMI: 21.0 Code: 39268-8 Heart Rate 1: 76 bpm Height: 5' SpO2: 98% Weight: 108 lbs 09/29/2015 Blood Pressure 1: 130/70 Code: 8480-6 BMI: 20.2 Code: 48643-5 Heart Rate 1: 72 bpm Height: 5' Weight: 104 lbs 09/15/2015 Blood Pressure 1: 128/78 Code: 8480-6 BMI: 19.9 Code: 01780-0 Heart Rate 1: 72 bpm Height: 5' Weight: 102 lbs 8 oz 09/01/2015 Blood Pressure 1: 128/68 Code: 8480-6 BMI: 19.8 Code: 55095-2 Height: 5' Weight: 102 lbs 05/26/2015 Blood Pressure 1: 140/68 Code: 8480-6 BMI: 19.0 Code: 44585-3 Heart Rate 1: 70 bpm Height: 5' Weight: 98 lbs 05/21/2015 Blood Pressure 1: 140/78 Code: 8480-6 BMI: 19.2 Code: 37094-8 Heart Rate 1: 85 bpm Height: 5' SpO2: 95% Weight: 99 lbs 05/07/2015 Blood Pressure 1: 140/82 Code: 8480-6 BMI: 19.0 Code: 34115-2 Heart Rate 1: 76 bpm Height: 5' Weight: 98 lbs 03/23/2015 Blood Pressure 1: 142/60 Code: 8480-6 BMI: 18.6 Code: 93047-8 Heart Rate 1: 52 bpm Height: 5' Weight: 96 lbs 03/09/2015 Blood Pressure 1: 138/74 Code: 8480-6 BMI: 18.8 Code: 59497-9 Heart Rate 1: 60 bpm Height: 5' Weight: 97 lbs 10/30/2014 Blood Pressure 1: 112/82 Code: 8480-6 BMI: 19.0 Code: 84561-1 Heart Rate 1: 64 bpm Height: 5' Weight: 98 lbs 07/11/2014 Blood Pressure 1: 146/70 Code: 8480-6 BMI: 18.8 Code: 36852-9 Heart Rate 1: 68 bpm Height: 5' Weight: 97 lbs 05/20/2014 Blood Pressure 1: 142/76 Code: 8480-6 BMI: 18.6 Code: 80847-3 Heart Rate 1: 78 bpm Height: 5' Weight: 96 lbs 04/29/2014 Blood Pressure 1: 138/62 Code: 8480-6 BMI: 18.3 Code: 66137-8 Heart Rate 1: 80 bpm Height: 5' Weight: 94 lbs 8 oz 03/20/2014 Blood Pressure 1: 142/68 Code: 8480-6 BMI: 18.6 Code: 21175-6 Heart Rate 1: 96 bpm Height: 5' Weight: 96 lbs 03/05/2014 Blood Pressure 1: 122/72 Code: 8480-6 BMI: 18.8 Code: 95292-4 Heart Rate 1: 82 bpm Height: 5' SpO2: 97% Weight: 97 lbs 01/29/2014 Blood Pressure 1: 124/78 Code: 8480-6 BMI: 18.8 Code: 79349-3 Heart Rate 1: 60 bpm Height: 5' Weight: 97 lbs 01/14/2014 Blood Pressure 1: 120/58 Code: 8480-6 BMI: 19.2 Code: 41602-7 Heart Rate 1: 56 bpm Height: 5' Temperature: 36.9 (C) / 98.4 (F) Weight: 99 lbs 12/25/2013 Blood Pressure 1: 118/78 Code: 8480-6 BMI: 19.2 Code: 21690-5 Heart Rate 1: 68 bpm Height: 5' Weight: 99 lbs 11/27/2013 Blood Pressure 1: 102/68 Code: 8480-6 BMI: 19.4 Code: 89333-3 Heart Rate 1: 56 bpm Height: 5' Weight: 100 lbs 09/12/2013 Blood Pressure 1: 142/62 Code: 8480-6 BMI: 19.7 Code: 62605-0 Heart Rate 1: 72 bpm Height: 5'1" Weight: 104 lbs 08/15/2013 Blood Pressure 1: 152/92 Code: 8480-6 Heart Rate 1: 96 bpm Weight: 102 lbs 08/01/2013 Blood Pressure 1: 122/68 Code: 8480-6 BMI: 19.1 Code: 07166-9 Heart Rate 1: 68 bpm Height: 5'1" Weight: 101 lbs 07/01/2013 Blood Pressure 1: 130/72 Code: 8480-6 BMI: 19.5 Code: 36861-7 Heart Rate 1: 80 bpm Height: 5'1" Temperature: 36.1 (C) / 97.0 (F) Weight: 103 lbs 05/29/2013 Blood Pressure 1: 126/72 Code: 8480-6 BMI: 19.3 Code: 02113-8 Heart Rate 1: 80 bpm Height: 5'1" Weight: 102 lbs 05/15/2013 Blood Pressure 1: 156/74 Code: 8480-6 BMI: 19.3 Code: 55152-3 Heart Rate 1: 88 bpm Height: 5'1" Weight: 102 lbs 04/23/2013 Blood Pressure 1: 140/82 Code: 8480-6 BMI: 19.3 Code: 69887-5 Heart Rate 1: 72 bpm Height: 5'1" Weight: 102 lbs 03/21/2013 Blood Pressure 1: 142/74 Code: 8480-6 Heart Rate 1: 92 bpm Weight: 103 lbs 01/16/2013 Blood Pressure 1: 120/56 Code: 8480-6 BMI: 20.0 Code: 83575-2 Heart Rate 1: 72 bpm Height: 5'1" Weight: 106 lbs 12/19/2012 Blood Pressure 1: 118/66 Code: 8480-6 Heart Rate 1: 84 bpm Weight: 12/10/2012 Blood Pressure 1: 132/62 Code: 8480-6 Heart Rate 1: 64 bpm Weight: 103 lbs 10/30/2012 Blood Pressure 1: 122/66 Code: 8480-6 BMI: 19.9 Code: 36307-4 Heart Rate 1: 61 bpm Height: 5'1" [...] 1: 118/72 Code: 8480-6 BMI: 21.0 Code: 32779-8 Heart Rate 1: 66 bpm Height: 5'1" Respiratory Rate: 16 bpm Weight: 111 lbs 2012 Blood Pressure 1: 122/62 Code: 8480-6 Heart Rate 1: 68 bpm Weight: 110 lbs 12/01/2011 Blood Pressure 1: 150/60 Code: 8480-6 BMI: 20.8 Code: 70237-7 Heart Rate 1: 60 bpm Height: 5'1" Respiratory Rate: 16 bpm Weight: 110 lbs 11/23/2011 Blood Pressure 1: 170/68 Code: 8480-6 BMI: 21.1 Code: 12763-2 Heart Rate 1: 64 bpm Height: 5'1" Temperature: 36.3 (C) / 97.3 (F) Weight: 111 lbs 8 oz 10/17/2011 Blood Pressure 1: 148/62 Code: 8480-6 Heart Rate 1: 74 bpm 10/03/2011 Blood Pressure 1: 102/48 Code: 8480-6 BMI: 21.4 Code: 29387-4 Heart Rate 1: 76 bpm Height: 5'1" Respiratory Rate: 16 bpm Weight: 113 lbs 08/08/2011 Blood Pressure 1: 128/60 Code: 8480-6 Heart Rate 1: 80 bpm Respiratory Rate: 16 bpm Weight: 113 lbs 05/09/2011 Blood Pressure 1: 130/62 Code: 8480-6 BMI: 20.7 Code: 42181-8 Heart Rate 1: 64 bpm Height: 5'1" Respiratory Rate: 16 bpm Weight: 109 lbs 8 oz 03/29/2011 Blood Pressure 1: 120/62 Code: 8480-6 BMI: 20.2 Code: 14815-8 Heart Rate 1: 66 bpm Height: 5'1" Respiratory Rate: 12 bpm Weight: 107 lbs 03/15/2011 Blood Pressure 1: 120/64 Code: 8480-6 BMI: 19.8 Code: 22637-3 Heart Rate 1: 76 bpm Height: 5'1" Respiratory Rate: 16 bpm Weight: 105 lbs Functional Status No Functional Status data History of Present Illness Symptom Name Status Result Effective Date Notes sore throat Location diffusely 11/29/2016 None sore [...] contacts 03/20/2014 sat next to neighbor in [place] who had tonsillitis sore throat Pertinent Findings [...] data Encounters Encounter Performer Location Codes Date ([id number]) Miscellaneous no charge Diagnosis: Cough[ICD10: R05] Diagnosis: Acute upper respiratory infection, unspecified[ICD10: J06.9] Laura Bahena MD, [facility] CPT-4: 82737 11/29/2016 [id number] EST. PATIENT, LEVEL III Diagnosis: Cough[ICD10: R05] Diagnosis: Acute laryngopharyngitis[ICD10: J06.0] Katharine Bahena MD, [facility] CPT- 4: 03812 11/23/2016 ([id number]) [id number] EST. PATIENT, LEVEL III Diagnosis: Acute laryngopharyngitis[ICD10: J06.0] [facility] CPT-4: 45324 11/21/2016 ([id number]) Miscellaneous no charge Diagnosis: Laceration without foreign body of right forearm, subsequent encounter[ICD10: S51.811D] Karma Bahena MD, [facility] CPT-4: 64455 11/17/2016 ([id number]) Miscellaneous no charge Diagnosis: Laceration without foreign body of right forearm, subsequent encounter[ICD10: S51.811D] Karma Bahena MD [facility] CPT-4: 36819 11/14/2016 ([id number]) Miscellaneous no charge Diagnosis: Laceration without foreign body of right forearm, subsequent encounter[ICD10: S51.811D] PARVEEN Freitas MD CPT-4: 94477 11/11/2016 ([id number]) Miscellaneous no charge Diagnosis: Laceration without foreign body of right forearm, subsequent encounter[ICD10: S51.811D] Karma Bahena MD [facility] CPT-4: 31068 11/10/2016 ([id number]) 67692 EST. PATIENT, LEVEL II Diagnosis: Laceration without foreign body of right forearm, subsequent encounter[ICD10: S51.811D] Karma Bahena MD [facility] CPT-4: 26359 11/08/2016 ([id number]) 11486 EST. PATIENT, LEVEL IV Diagnosis: Atrophy of thyroid (acquired)[ICD10: E03.4] Diagnosis: Chronic atrial fibrillation[ICD10: I48.2] Diagnosis: Laceration without foreign body of right forearm, subsequent encounter[ICD10: S51.811D] Karma Bahena MD [facility] CPT-4: 13777 11/02/2016 ([id number]) 64914 EST. PATIENT, LEVEL III Diagnosis: Laceration without foreign body of right forearm, initial encounter[ICD10: S51.811A] Laura Bahena MD [facility] CPT-4: 93637 10/27/2016 ([id number]) 74968 EST. PATIENT, LEVEL IV Diagnosis: Essential (primary) hypertension[ICD10: I10] Diagnosis: Chronic atrial fibrillation[ICD10: I48.2] Karma Bahena MD [facility] CPT-4: 92748 08/31/2016 ([id number]) 13954 EST. PATIENT, LEVEL IV Diagnosis: Localized edema[ICD10: R60.0] Diagnosis: Essential (primary) hypertension[ICD10: I10] Diagnosis: Abdominal distension (gaseous)[ICD10: R14.0] Karma Bahena MD, [facility] CPT-4: 83941 07/27/2016 ([id number]) 26439 EST. PATIENT, LEVEL IV Diagnosis: Essential (primary) hypertension[ICD10: I10] Diagnosis: Chronic atrial fibrillation[ICD10: I48.2] Diagnosis: Localized edema[ICD10: R60.0] Karma Bahena MD [facility] CPT-4: 01845 06/23/2016 ([id number]) 95822 EST. PATIENT, LEVEL III Diagnosis: Localized edema[ICD10: R60.0] Karma Bahena MD [facility] CPT-4: 36506 06/09/2016 ([id number]) 79104 EST. PATIENT, LEVEL III Diagnosis: Irritable bowel syndrome without diarrhea[ICD10: K58.9] Diagnosis: Pruritus ani[ICD10: L29.0] Karma Bahena MD [facility] CPT-4: 81871 05/25/2016 ([id number]) 94780 EST. PATIENT, LEVEL III Diagnosis: Abdominal distension (gaseous)[ICD10: R14.0] Diagnosis: Encounter for screening mammogram for malignant neoplasm of breast[ICD10: Z12.31] Karma Bahena MD [facility] CPT-4: 73575 05/17/2016 ([id number]) 44279 EST. PATIENT, LEVEL IV Diagnosis: Essential (primary) hypertension[ICD10: I10] Diagnosis: First degree hemorrhoids[ICD10: K64.0] Diagnosis: Encounter for immunization[ICD10: Z23] Karma Bahena MD [facility] CPT-4: 72236 03/24/2016 ([id number]) 41436 EST. 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 PATIENT, LEVEL III Diagnosis: Acute anal fissure[ICD10: K60.0] Karma Bahena MD [facility] CPT-4: 69942 2016 ([id number]) 76212 EST. PATIENT, LEVEL III Diagnosis: Allergic rhinitis due to pollen[ICD10: J30.1] Diagnosis: Acute upper respiratory infection, unspecified[ICD10: J06.9] Laura Bahena MD, [facility] CPT-4: 51476 12/21/2015 ([id number]) 51904 EST. PATIENT, LEVEL III Diagnosis: Essential (primary) hypertension[ICD10: I10] Diagnosis: Chronic atrial fibrillation[ICD10: I48.2] Karma Bahena MD, [facility] CPT-4: 75409 11/03/2015 ([id number]) Miscellaneous no charge Diagnosis: Impacted cerumen, right ear[ICD10: H61.21] Katharine Bahena MD, [facility] CPT-4: 30205 10/19/2015 50417 EST. PATIENT, LEVEL IV Diagnosis: Impacted cerumen, right ear[ICD10: H61.21] Diagnosis: Other allergic rhinitis[ICD10: J30.89] Katharine Bahena MD, [facility] CPT- 4: 87449 10/13/2015 ([id number]) 83714 EST. PATIENT, LEVEL IV Diagnosis: Essential (primary) hypertension[ICD10: I10] Diagnosis: Chronic atrial fibrillation[ICD10: I48.2] Diagnosis: Urge incontinence[ICD10: N39.41] Diagnosis: Age-related osteoporosis without current pathological fracture[ICD10: M81.0] Karma Bahena MD, [facility] CPT-4: 07766 09/29/2015 ([id number]) 68921 EST. PATIENT, LEVEL IV Diagnosis: Essential (primary) hypertension[ICD10: I10] Diagnosis: Chronic atrial fibrillation[ICD10: I48.2] Diagnosis: Irritable bowel syndrome without diarrhea[ICD10: K58.9] Diagnosis: Unspecified hemorrhoids[ICD10: K64.9] Karma Bahena MD, [facility] CPT-4: 74696 09/15/2015 ([id number]) 13859 EST. 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 PATIENT, LEVEL III Diagnosis: Hematuria, unspecified[ICD10: R31.9] Diagnosis: Other urethritis[ICD10: N34.2] Diagnosis: Other specified noninflammatory disorders of vagina[ICD10: N89.8] Karma Bahena MD, [facility] CPT-4: 17045 05/26/2015 84802 EST. PATIENT, LEVEL IV Diagnosis: Gout, unspecified[ICD10: M10.9] Karma Bahena MD, [facility] CPT-4: 96912 05/21/2015 ([id number]) 61790 EST. PATIENT, LEVEL IV Diagnosis: Chronic atrial fibrillation[ICD10: I48.2] Diagnosis: Irritable bowel syndrome without diarrhea[ICD10: K58.9] Diagnosis: Cystocele, unspecified[ICD10: N81.10] Diagnosis: Urge incontinence[ICD10: N39.41] Diagnosis: Fecal smearing[ICD10: R15.1] Diagnosis: Hypothyroidism, unspecified[ICD10: E03.9] Karma Bahena MD, [facility] CPT-4: 09179 05/07/2015 ([id number]) 34742 EST. PATIENT, LEVEL III Diagnosis: Atrial fibrillation[ICD9: 427.31] Diagnosis: Bloating[ICD9: 787.3] Karma Bahena MD, [facility] CPT-4: 50596 03/23/2015 ([id number]) 03404 EST. PATIENT, LEVEL IV Diagnosis: Abdominal pain[ICD9: 789.00] Diagnosis: Atrial fibrillation[ICD9: 427.31] Diagnosis: ENCNTR LONG-ANTICOAG USE[ICD9: V58.61] Karma Bahena MD, [facility] CPT-4: 74941 03/09/2015 ([id number]) 07715 EST. PATIENT, LEVEL IV Diagnosis: HEMATURIA NOS[ICD9: 599.70] Diagnosis: Atrial fibrillation[ICD9: 427.31] Diagnosis: HYPOTHYROIDISM[ICD9: 244.9] Karma Bahena MD [facility] CPT-4: 69193 10/30/2014 ([id number]) 31855 EST. PATIENT, LEVEL IV Diagnosis: Atrial fibrillation[ICD9: 427.31] Diagnosis: ALLERGIC RHINITIS[ICD9: 477.9] Diagnosis: Need for pneumococcal vaccine[ICD9: V03.82] Diagnosis: Osteoarthritis[ICD9: 715.90] Diagnosis: Osteoporosis[ICD9: 733.00] Karma Bahena MD [facility] CPT-4: 90818 07/11/2014 ([id number]) 53551 EST. PATIENT, LEVEL III Diagnosis: Urge incontinence[ICD9: 788.31] Diagnosis: Dysuria[ICD9: 788.1] Karma Bahena MD [facility] CPT-4: 98502 05/20/2014 ([id number]) 63957 EST. PATIENT, LEVEL IV Diagnosis: Atrial fibrillation[ICD9: 427.31] Diagnosis: Hematuria[ICD9: 599.70] Diagnosis: Dysuria[ICD9: 788.1] Diagnosis: ESSENTIAL HYPERTENSION[ICD9: 401.9] Karma Bahena MD [facility] CPT- 4: 10132 04/29/2014 ([id number]) 40891 EST. PATIENT, LEVEL IV Diagnosis: ESSENTIAL HYPERTENSION[ICD9: 401.9] Diagnosis: ALLERGIC RHINITIS[ICD9: 477.9] Karma Bahena MD [facility] CPT-4: 51356 03/20/2014 ([id number]) 43399 EST. PATIENT, LEVEL IV Diagnosis: ESSENTIAL HYPERTENSION[ICD9: 401.9] Diagnosis: ATRIAL FIBRILLATION[ICD9: 427.31] Diagnosis: Irritable bowel[ICD9: 564.1] Karma Bahena MD [facility] CPT-4: 08361 03/05/2014 ([id number]) 95532 EST. PATIENT, LEVEL IV Diagnosis: Esophageal reflux[ICD9: 530.81] Diagnosis: DIARRHEA[ICD9: 787.91] Diagnosis: ABDOM PAIN NOS SITE[ICD9: 789.00] Karma Bahena MD [facility] CPT- 4: 62518 01/29/2014 ([id number]) 76688 EST. PATIENT, LEVEL III Diagnosis: Irritable bowel[ICD9: 564.1] Diagnosis: DIARRHEA[ICD9: 787.91] Laura Bahena MD, [facility] CPT-4: 24134 01/14/2014 ([id number]) 87375 EST. PATIENT, LEVEL IV Diagnosis: ESSENTIAL HYPERTENSION[ICD9: 401.9] Diagnosis: ATRIAL FIBRILLATION[ICD9: 427.31] Diagnosis: URGE INCONTINENCE[ICD9: 788.31] Diagnosis: MALAISE AND FATIGUE[ICD9: 780.79] Diagnosis: Dyspnea[ICD9: 786.09] Karma Bahena MD [facility] CPT-4: 41016 12/25/2013 ([id number]) 21240 EST. PATIENT, LEVEL IV Diagnosis: ESSENTIAL HYPERTENSION[SNOMED: 39981452] Diagnosis: ATRIAL FIBRILLATION[ICD9: 427.31] Diagnosis: Abdominal pain[ICD9: 789.00] Diagnosis: ESOPHAGEAL REFLUX[ICD9: 530.81] Karma Bahena MD [facility] CPT-4: 48074 11/27/2013 ([id number]) 19302 EST. PATIENT, LEVEL IV Diagnosis: ESSENTIAL HYPERTENSION[SNOMED: 85214089] Diagnosis: ATRIAL FIBRILLATION[ICD9: 427.31] Diagnosis: Chronic osteoarthritis[ICD9: 715.90] Karma Bahena MD [facility] CPT- 4: 34403 09/12/2013 ([id number]) 97741 EST. PATIENT, LEVEL III Diagnosis: ESSENTIAL HYPERTENSION[SNOMED: 30148399] Diagnosis: Bruising[ICD9: 924.9] Diagnosis: ENCNTR LONG-RX USE NEC[ICD9: V58.69] Karma Bahena MD, [facility] CPT- 4: 80257 08/15/2013 ([id number]) 37923 EST. PATIENT, LEVEL IV Diagnosis: ESSENTIAL HYPERTENSION[SNOMED: 96899211] Diagnosis: Hematuria[ICD9: 599.70] Diagnosis: Dysuria[ICD9: 788.1] Karma Bahena MD [facility] CPT-4: 87181 08/01/2013 ([id number]) 46772 EST. PATIENT, LEVEL III Diagnosis: UTI[ICD9: 599.0] Diagnosis: Hematuria[ICD9: 599.70] Laura Bahena MD [facility] CPT-4: 32955 07/01/2013 ([id number]) 55593 EST. PATIENT, LEVEL III Diagnosis: ATRIAL FIBRILLATION[ICD9: 427.31] Diagnosis: ESSENTIAL HYPERTENSION[SNOMED: 26705965] Karma Bahena MD [facility] CPT-4: 37183 05/29/2013 ([id number]) 23138 EST. PATIENT, LEVEL IV Diagnosis: Atrial fibrillation[ICD9: 427.31] Diagnosis: Encounter for monitoring digoxin therapy[ICD9: V58.83] Diagnosis: ESSENTIAL HYPERTENSION[SNOMED: 57545928] Karma Bahena MD [facility] CPT-4: 73006 05/15/2013 ([id number]) 47214 EST. PATIENT, LEVEL IV Diagnosis: ESSENTIAL HYPERTENSION[SNOMED: 47728823] Diagnosis: ATRIAL FIBRILLATION[ICD9: 427.31] Diagnosis: PALPITATIONS[ICD9: 785.1] Diagnosis: Dizziness and giddiness[ICD9: 780.4] Karma Bahena MD [facility] CPT- 4: 00640 04/23/2013 ([id number]) 60992 EST. PATIENT, LEVEL III Diagnosis: OTHER CONSTIPATION[ICD9: 564.09] Diagnosis: ABDOM PAIN NOS SITE[ICD9: 789.00] Laura Bahena MD [facility] CPT- 4: 78104 03/21/2013 ([id number]) 80224 EST. PATIENT, LEVEL IV Diagnosis: ESSENTIAL HYPERTENSION[SNOMED: 21049765] Diagnosis: Atrial fibrillation[ICD9: 427.31] Karma Bahena MD [facility] CPT- 4: 07104 01/16/2013 ([id number]) Miscellaneous no charge Diagnosis: CELLULITIS OF HAND[ICD9: 682.4] Karma Bahena MD [facility] CPT-4: 66441 12/19/2012 ([id number]) Miscellaneous no charge Diagnosis: ENCOUNTER FOR THERAPEUTIC DRUG MONITORING[ICD9: V58.83] Diagnosis: CELLULITIS OF HAND[ICD9: 682.4] Karma Bahena MD [facility] CPT-4: 52421 12/14/2012 Miscellaneous no charge Diagnosis: CELLULITIS OF HAND[ICD9: 682.4] Karma Bahena MD, [facility] CPT-4: 00230 12/12/2012 15455 EST. PATIENT, LEVEL II Diagnosis: CELLULITIS OF HAND[ICD9: 682.4] Diagnosis: ENCNTR LONG-RX USE NEC[ICD9: V58.69] Diagnosis: LONG-TERM USE ANTICOAGUL[ICD9: V58.61] Karma Bahena MD [facility] CPT-4: 96216 12/11/2012 ([id number]) 89726 EST. PATIENT, LEVEL III Diagnosis: CELLULITIS OF HAND[ICD9: 682.4] Karma aBhena MD [facility] CPT-4: 83980 12/10/2012 ([id number]) 67822 EST. PATIENT, LEVEL IV Diagnosis: Elevated digoxin level[ICD9: 796.0] Diagnosis: ATRIAL FIBRILLATION[ICD9: 427.31] Diagnosis: Inflammatory arthritis[ICD9: 714.9] Karma Bahena MD [facility] CPT- 4: 21981 10/30/2012 ([id number]) 32146 EST. PATIENT, LEVEL IV Diagnosis: Atrial fibrillation[ICD9: 427.31] Diagnosis: Anticoagulant long-term use[ICD9: V58.61] Diagnosis: ESSENTIAL HYPERTENSION[SNOMED: 76480930] Karma Bhaena MD [facility] CPT-4: 86859 08/08/2012 ([id number]) 75378 EST. PATIENT, LEVEL IV Diagnosis: ABDOM PAIN NOS SITE[ICD9: 789.00] Diagnosis: Constipation - functional[ICD9: 564.09] Diagnosis: EDEMA[ICD9: 782.3] Diagnosis: ATRIAL FIBRILLATION[ICD9: 427.31] Karma Bahena MD [facility] CPT- 4: 25778 07/11/2012 ([id number]) 08724 EST. PATIENT, LEVEL III Diagnosis: Cystocele[ICD9: 618.01] Diagnosis: Rectocele[ICD9: 618.04] Karma Bahena MD [facility] CPT-4: 80060 05/08/2012 ([id number]) 44289 EST. 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 PATIENT, LEVEL IV Diagnosis: ATRIAL FIBRILLATION[ICD9: 427.31] Diagnosis: URGE INCONTINENCE[ICD9: 788.31] Diagnosis: MALAISE AND FATIGUE[ICD9: 780.79] Diagnosis: Dyspnea[ICD9: 786.09] Karma Bahena MD [facility] CPT-4: 81931 02/20/2012 70915 EST. PATIENT, LEVEL IV Diagnosis: Hematuria[ICD9: 599.70] Diagnosis: Vaginal yeast infection[ICD9: 112.1] Diagnosis: ATRIAL FIBRILLATION[ICD9: 427.31] Laura Bahena MD, [facility] CPT- 4: 92323 02/13/2012 ([id number]) 10220 EST. PATIENT, LEVEL IV Diagnosis: Atrial fibrillation[ICD9: 427.31] Diagnosis: Anticoagulation goal of INR 2 to 3[ICD9: V58.83] Diagnosis: Urinary incontinence, urge[ICD9: 788.31] Diagnosis: ESSENTIAL HYPERTENSION[SNOMED: 27518645] Karma Bahena MD [facility] CPT-4: 56548 02/01/2012 ([id number]) 49074 EST. PATIENT, LEVEL IV Diagnosis: Atrial fibrillation[ICD9: 427.31] Diagnosis: Anticoagulant long-term use[ICD9: V58.61] Diagnosis: ESSENTIAL HYPERTENSION[SNOMED: 72112660] Karma Bahena MD [facility] CPT-4: 16709 2012 27445 EST. PATIENT, LEVEL IV Diagnosis: UTI[ICD9: 599.0] Diagnosis: ESSENTIAL HYPERTENSION[SNOMED: 99924654] Diagnosis: MALAISE AND FATIGUE[ICD9: 780.79] Diagnosis: Esophageal reflux[ICD9: 530.81] Karma Bahena MD, [facility] CPT-4: 60503 12/01/2011 ([id number]) 54348 EST. PATIENT, LEVEL IV Diagnosis: UTI (urinary tract infection)[ICD9: 599.0] Diagnosis: ESSENTIAL HYPERTENSION[SNOMED: 08514817] Diagnosis: URGE INCONTINENCE[ICD9: 788.31] Karma Bahena MD, [facility] CPT-4: 32866 11/23/2011 ([id number]) 20797 EST. PATIENT, LEVEL IV Diagnosis: ESSENTIAL HYPERTENSION[SNOMED: 68943161] Diagnosis: IMPACTED CERUMEN[ICD9: 380.4] Diagnosis: MALAISE AND FATIGUE[ICD9: 780.79] Diagnosis: EDEMA[ICD9: 782.3] Karma Bahena MD [facility] CPT-4: 17928 10/03/2011 88029 EST. PATIENT, LEVEL IV Diagnosis: ESSENTIAL HYPERTENSION[SNOMED: 10272047] Diagnosis: Generalized osteoarthritis[ICD9: 715.09] Diagnosis: OSTEOPOROSIS[ICD9: 733.00] Karma Bahena MD, [facility] CPT-4: 05440 08/08/2011 33074 EST. PATIENT, LEVEL IV Diagnosis: Muscle cramp[ICD9: 729.82] Diagnosis: Torticollis[ICD9: 723.5] Diagnosis: Rash[ICD9: 782.1] Karma Bahena MD, [facility] CPT-4: 84113 05/09/2011 66742 EST. PATIENT, LEVEL IV Diagnosis: Leg cramps, sleep related[ICD9: 327.52] Diagnosis: Underweight[ICD9: 783.22] Karma Bahena MD, [facility] CPT-4: 10003 03/29/2011 03489 EST. PATIENT, LEVEL IV Diagnosis: UTI[ICD9: 599.0] Diagnosis: Urge incontinence[ICD9: 788.31] Diagnosis: Loss of weight[ICD9: 783.21] Diagnosis: Palpitations[ICD9: 785.1] Diagnosis: Peripheral neuropathy, idiopathic[ICD9: 356.9] [facility] CPT-4: 16060 03/15/2011 Plan of Care Planned Activity Notes Codes Status Date Appointment: Karma Bahena WPtel: [phone] [facility] (15 min) Moderate 12/28/2016 Visit Plan: [id number] zpack-call if symptoms do not resolve or if any worse. Patient verbalized understanding of plan. 11/29/2016 Appointment: Lauar Colin WPtel: [phone] (15 min) Moderate 11/29/2016 Patient Education: Patient [...] Appointment: Katharine Dai WPtel: [facility]6 [facility] (15 min) Moderate 11/23/2016 Patient Education: Patient Medication Summary Completed 11/23/2016 Visit Plan: Pharyngitis-Discussed natural and expected course of this diagnosis and need to alert me if symptoms do not follow expected course, or if any worse. Recommended salt water gargles as needed for pain. Tylenol/motrin as needed for fever/discomfort. 11/21/2016 Appointment: Laura Colin WPtel: [phone] [phone] (15 min) Moderate 11/21/2016 Patient [...] [phone] (10 min) Simple 11/08/2016 Patient Education: Patient [...] Nurse Visit 11/02/2016 Appointment: Karma Bahen[phone] (15 min) Moderate 11/02/2016 Patient Education: Patient Medication Summary Completed 11/02/2016 Appointment: Nurse Visit 10/31/2016 Visit Plan: Laceration-right forearm- Pt was instructed to keep the wound clean, cleanse with sterile saline, use bactroban ointment, call if redness, pustular drainage, or any other acute concerns. Follow up Monday for dressing changes. 10/27/2016 Appointment: Laura Colin WPtel: [phone] (30 min) Complex 10/27/2016 Patient [...] Karma Bahena WPtel: [facility] (15 min) Moderate 08/31/2016 Patient Education: Patient [...] Karma Bahena WPtel: [facility] (15 min) Moderate 07/27/2016 Patient Education: Patient [...] Bahen[facility]el[phone] [place] (15 min) Moderate 06/23/2016 Patient Education: Patient Medication Summary Completed 06/23/2016 Patient Education: Hypertension Completed 06/23/2016 Visit Plan: Edema - with Dyspnea - RX for laxis and compression socks - pt to call if not improving. 06/09/2016 Appointment: Karma Bahena WPtel: [address] [place], [place] [phone] [place] (15 min) Moderate 06/09/2016 Patient Education: Patient Medication Summary Completed 06/09/2016 Visit Plan: Abdominal pain and rectal itching - recommended pt to use betamethasone on vaginal/rectal region, monitor symptoms call if not improving. Continue with beano and simethicone 05/25/2016 Appointment: Karma Bahena WPtel: [address] [place], [place] [phone] [place] (15 min) Moderate 05/25/2016 Patient Education: Patient Medication Summary Completed 05/25/2016 Care Plan: SCREENINGMAMMOGRAPHYDIGITAL [facility] : 84155-3 Pending 05/20/2016 Visit Plan: Abdominal distension - use simethicone four times daily - after meals - if it does not help - in the next two weeks - call the office and we will do a ct scan of the abdomen and pelvis 05/17/2016 Appointment: Karma Bahena WPtel: [address] [place], [place] [phone] [place] (15 min) Moderate 05/17/2016 Patient Education: [...] steroid ointment 03/24/2016 Appointment: Karma Bahena WPtel: [facility] [place] (30 min) Complex 03/24/2016 Patient Education: [...] allergy spray. 12/21/2015 Appointment: Laura Colin WPtel: [phone] [phone] (30 min) Complex 12/21/2015 Patient [...] becoming uncontrolled. 11/03/2015 Appointment: Kar[facility] Bahen[facility]el[phone] (15 min) Moderate 11/03/2015 Patient Education: Patient [...] had left kidney and ureter removed in [place]-doing well 09/01/2015 Appointment: (30 min) Complex 09/01/2015 Patient Education: Patient Medication Summary Completed 09/01/2015 Patient Education: Hypertension Completed 09/01/2015 Appointment: Karma Bahena WPtel: [address] [place] [id number] (15 min) Moderate 07/13/2015 Visit Plan: Hematuria/Urethritis [...] 05/13/2015 Care Plan: Referral Order SNOMED-CT : 994003530 Ordered 05/08/2015 Visit Plan: Atrial Fibrillation - [...] Dr. Collins. 05/07/2015 Appointment: Karma Bahena WPtel: [address] [place] [id number] (15 min) Moderate 05/07/2015 Patient Education: Patient [...] becoming uncontrolled. 10/30/2014 Appointment: Karma Bahena WPtel: [address] [place], [place] [phone] Follow up 10/30/2014 Patient Education: Patient Medication Summary Completed 10/30/2014 Appointment: Karma Bahena WPtel: [address] [place], [place] [phone] Follow up 07/22/2014 Visit Plan: Atrial Fibrillation [...] in hospital. 07/11/2014 Appointment: Karma Bahena WPtel: [address] [place], [place] [phone] Sick 07/11/2014 Patient Education: Patient Medication Summary Completed 07/11/2014 Appointment: Karma Bahena WPtel: [address] [place], [place] [phone] Follow up 07/07/2014 Visit Plan: Urinary incontinence and recurrent UTI's - doctor will refer to Dr. Joel Collins - for nonsurgical intervention for potential electrical stimulation/training of pelvic floor muscles - for strengthening - can start on the treatment when you get back from [place] - will also ask him about doing a cystoscopy to look into bladder to see if there is any bladder irritation.keep using the Premarin - use about 25Cent size of cream onto finger to apply to urethra and do this three times weekly. 05/20/2014 Appointment: Karma Bahena [facility]Ptel: [phone] Follow up 05/20/2014 Patient Education: Patient Medication Summary Completed 05/20/2014 Appointment: Karma Bahena WPtel: [phone] [facility] Lab Draw 05/14/2014 Patient Education: Patient Medication [...] becoming uncontrolled.Incontinence - recommended vesicare. 04/29/2014 Appointment: Josef Karma WPtel: [phone] [facility] Follow up 04/29/2014 Patient Education: Patient Medication [...] allergy spray. 03/20/2014 Appointment: Karma Bahena WPtel: [address] [place], [place] [phone] [facility] 03/20/2014 Patient Education: Patient Medication Summary [...] becoming uncontrolled. 03/05/2014 Appointment: Karma Bahena WPtel: [address] [place], [place] [phone] Follow up 03/05/2014 Patient Education: Patient Medication [...] report. 01/29/2014 Appointment: Karma Bahena WPtel: [phone] Follow up 01/29/2014 Patient Education: Patient Medication [...] exposure,and dyspnea on exertion - will ask [employer] [facility] Patient do an overnight oxygen study on [place] as she has cardiac history, weight loss, and nocturnal hypoxemia may be a part of her weight loss and fatigue. 12/25/2013 Appointment: Karma Bahena WPtel: [phone] Follow up 12/25/2013 Patient Education: Patient Medication [...] daily. 11/27/2013 Appointment: Karma Bahena WPtel: [phone] [facility] Follow up 11/27/2013 Patient Education: Patient Medication [...] and heart rate.Osteoarthritis - send pt to [facility] physical therapy for [facility] osteoarhtritis program for strengthening and pain reduction. Hypertension - well controlled - continue with current medications, continue with no added salt diet. Pt has been encouraged to exercise daily.The pt has been advised to call the office if there are any acute concerns about change in blood pressure readings at home. 09/12/2013 Appointment: Karma Bahena WPtel: [facility]5 [facility] Follow up 09/12/2013 Patient Education: Patient Medication Summary Completed 09/12/2013 Patient Education: Hypertension Completed 09/12/2013 Appointment: Karma Bahena WPtel: [facility]5 [facility] Follow up 08/21/2013 Visit Plan: Hypertension - [...] coumadin-check PT/INR 08/15/2013 Appointment: Karma Bahena WPtel: [phone] [facility] Follow up 08/15/2013 Patient Education: Patient Medication [...] Karma Bahena WPtel: [facility] [place] Follow up 08/01/2013 Patient Education: Patient Medication Summary Completed 08/01/2013 Patient Education: Hypertension Completed 08/01/2013 Appointment: Laura Colin [facility]Ptel: [phone] [place] Lab Draw 07/29/2013 Patient Education: Patient Medication Summary Completed 07/29/2013 Visit Plan: Osteoporosis-prolia on june 25-patient to let Dr Hansen know 07/01/2013 Appointment: Laura Colin WPtel: [phone] [place] Follow up 07/01/2013 Appointment: Karma Bahena WPtel: [facility] [place] Follow up 07/01/2013 Patient Education: Patient Medication Summary Completed 07/01/2013 Appointment: Karma Bahena WPtel: [phone] [place] Follow up 06/25/2013 Appointment: Karma Bahena WPtel: [address] [place] [id number] [place] Lab Draw 06/20/2013 Patient Education: Patient Medication Summary Completed 06/20/2013 Appointment: Karma Bahena WPtel: [facility] [facility] [facility]/19/2013 Visit Plan: Atrial Fibrillation [...] at home. 05/29/2013 Appointment: Karma Bahena WPtel: [facility]5 [facility] Follow up 05/29/2013 Patient Education: Patient Medication [...] at home. 05/15/2013 Appointment: Karma Bahena WPtel: [facility] Other 05/15/2013 Patient Education: Patient Medication Summary [...] shot today. 04/23/2013 Appointment: Karma Bahena WPtel: [address] [place], [place] [id number] Other 04/23/2013 Patient Education: Patient Medication Summary [...] this regimen. 03/21/2013 Appointment: Laura Colin WPtel: [facility]5 [phone] Follow up 03/21/2013 Patient Education: Patient [...] becoming uncontrolled. 01/16/2013 Appointment: Karma Bahena WPtel: [address] [place], [place] [phone] Follow up 01/16/2013 Patient Education: Patient Medication Summary Completed 01/16/2013 Patient Education: Hypertension Completed 01/16/2013 Visit Plan: Wound Instructions - Pt was instruced to keep the wound clean, wash with antibacterial soap, use triple antibiotic ointment, call if redness, pustular drainage, or any other acute conerns. 12/19/2012 Appointment: Karma Bahena WPtel: [address] [place], [place] [phone] Other 12/19/2012 Patient Education: Patient Medication Summary Completed 12/19/2012 Patient Education: Patient Medication Summary Completed 12/17/2012 Visit Plan: Cellulitis - improved- monitor symptoms - need to check handon Monday morning. 12/14/2012 Appointment: Karma Bahena WPtel: [address] [place], [place] [phone] Follow up 12/14/2012 Patient Education: Patient Medication Summary Completed 12/14/2012 Visit Plan: Cellulitis - improved- monitor symptoms - need to check handon Monday morning. 12/12/2012 Appointment: Karma Bahena WPtel: [address] [place], [place] [phone] Work-in 12/12/2012 Patient Education: Patient Medication Summary [...] warmth, discharge. 12/10/2012 Appointment: Karma Bahena WPtel: [address] [place], [place] [phone] Other 12/10/2012 Patient Education: Patient Medication Summary [...] Karma Bahena WPtel: [facility]6 [facility] Follow up 10/30/2012 Patient Education: Patient Medication Summary Completed 10/30/2012 Appointment: Laura Colin WPtel: [phone] [phone] Lab Draw 09/13/2012 Patient Education: Patient [...] and 3.5. 08/08/2012 Appointment: Karma Bahena WPtel: [facility]6 [facility] Other 08/08/2012 Patient Education: Patient Medication Summary [...] regimen. 07/11/2012 Appointment: Karma Bahena WPtel: [phone] [facility] swelling, leg edema Other 07/11/2012 Patient Education: [...] insertion of the medication vaginally. 05/08/2012 Appointment: Karam Bahena WPtel: [phone] [place] Follow up 05/08/2012 Patient Education: Patient [...] Karma Bahena WPtel: [facility] [place] Follow up 04/18/2012 Patient Education: Patient Medication Summary Completed 04/18/2012 Patient Education: High Blood Pressure: Essential Hypertension Completed 04/18/2012 Appointment: Karma Bahena WPtel: [phone] [place] Follow up 04/09/2012 Appointment: Karma Bahena WPtel: [phone] [place] Lab Draw 04/04/2012 [facility]ment: [phone] [place] Lab Draw 03/19/2012 Visit Plan: [...] Hypertension Completed 03/13/2012 Appointment: Karma Bahena WPtel: [address] [place] [id number] Lab Draw 03/08/2012 Patient Education: Patient Medication [...] about change in blood pressure readings at home.Jeannie and romina- recommended cardiac rehab. 02/20/2012 Appointment: Karma Bahena WPtel: [phone] Other 02/20/2012 Patient Education: Patient Medication Summary [...] becoming uncontrolled. 02/13/2012 Appointment: Laura Colin WPtel: [phone] [phone] Other 02/13/2012 Patient Education: Patient Medication Summary Completed 02/13/2012 Appointment: Karma Bahena WPtel: [facility] Lab Draw 02/07/2012 Visit Plan: Atrial Fibrillation [...] Karma Bahena WPtel: [facility]5 [facility] Other 02/01/2012 Patient Education: Patient Medication Summary Completed 02/01/2012 Patient Education: High Blood Pressure: Essential Hypertension Completed 02/01/2012 Appointment: Karma Bahena WPtel: [address] [place], [place] [phone] Lab Draw 01/17/2012 Visit Plan: Atrial Fibrillation [...] at home. 2012 Appointment: Karma Bahena WPtel: [address] [place], [place] [phone] Other 2012 Patient Education: Patient Medication Summary Completed 2012 Patient Education: High Blood Pressure: Essential Hypertension Completed 2012 Appointment: Karma Bahena WPtel: [address] [place], [place] [phone] Follow up 12/20/2011 Visit Plan: Dicyclomine up [...] emergency room. 12/01/2011 Appointment: Karma Bahena WPtel: [phone] [facility] Other 12/01/2011 Patient Education: Patient Medication Summary [...] infection resolves. 11/23/2011 Appointment: Laura Colin WPtel: [phone] [phone] Other 11/23/2011 Patient Education: Patient Medication Summary Completed 11/23/2011 Patient Education: High Blood Pressure: Essential Hypertension Completed 11/23/2011 Visit Plan: Cerumen Impaction - The impacted cerumen was removed with the use of either ear currette alone or in combination with ear curette and water pick. The patient tolerated the procedure without incident and had improvement in hearing 10/17/2011 Appointment: Laura Colin WPtel: [phone] [phone] [place] Other 10/17/2011 Patient Education: Patient [...] by irrigation. 10/03/2011 Appointment: Karma Bahena WPtel: [address] [place], [place] [phone] [place] Other 10/03/2011 Patient Education: Patient Medication [...] is evidence. 08/08/2011 Appointment: Karma Bahena WPtel: [address] [place], [place] [phone] [place] Other 08/08/2011 Patient Education: Patient Medication Summary Completed 08/08/2011 Patient Education: High Blood Pressure: Essential Hypertension Completed 08/08/2011 Visit Plan: Muscle cramps - the cramps are a little better, continue with the Diltiazem and it is okay to use the over the counter supplement with quinine - but use it sparingly.For the rash, use the prescription the muck farmer prescribed for the itching , call if the rash is not improved.Torticollis - continue with physical therapy, call if the neck muscles do not continue to show improvement. 05/09/2011 Appointment: Karma Bahena WPtel: [address] [place], [place] [phone] [place] Other 05/09/2011 Patient Education: Patient Medication Summary [...] water aerobics. 03/29/2011 Appointment: Karma Bahena WPtel: [address] [place], [place] [phone] [place] Other 03/29/2011 Patient Education: Patient Medication Summary Completed 03/29/2011 Appointment: Karma Bahena WPtel: [address] [place], [place] [phone] Other 03/17/2011 Visit Plan: UTI - UA negative.Urge incontinence- restart on the vesicare- at 5 mg. Continue to avoid caffinated foods/fluids.Peripheral Neuropathy - per supply chain vice president report - Continue with the metanex.Loss of weight - WEIGHT CHECK IN 2 WKS. Palpitations- likely stress induced. If the symptoms worsen, call the office. 03/15/2011 Appointment: Karma Bahena WPtel: [address] [place], [place] [phone] Follow up 03/15/2011 Patient Education: Patient Medication Summary Completed 03/15/2011 Visit Plan: Rocephin 500mg IM 03/04/2011 Patient Education: Patient Medication Summary Completed 03/04/2011 Referral: Corby Collins Referral Appointment Requested Instructions [...] heart rate. Osteoarthritis - send pt to [facility] physical therapy for [facility] osteoarhtritis program for strengthening and pain reduction. [...] diet and continue with water aerobics. . Cyst - epidermal cyst - pt [...] in symptoms, worsening redness, warmth, discharge. . Atrial Fibrillation - pt on chronic [...] at home. Ynes- recommended cardiac rehab. . Hypothyroidism - pt [...] need to check handon Jeremiah morning. . Muscle cramps - the cramps are a little better, continue with the Diltiazem and it is okay to use the over the counter supplement with quinine - but use it sparingly. For the rash, use the prescription the muck farmer prescribed for the itching , call if the rash is not improved. Torticollis - continue with physical therapy, call if the neck muscles do not continue to show improvement. . LRG-naasd-tim zpack-call if symptoms do not resolve or [...] avoid caffinated foods/fluids. Peripheral Neuropathy - per supply chain vice president report - Continue with the metanex. Loss [...] not improving will consult Dr. Collins. . Abdominal pain and rectal [...] concerns. Follow up Monday for dressing changes. Elevated digoxin level - pt was recommended [...] their heart rate is becoming uncontrolled. . Edema - with Dyspnea - RX for laxis and compression socks - pt to call if not improving. diflucan 150mg daily x 7 days - [...] if this helps with your swelling. . ua obtained, no need for culture [...] in blood pressure readings at home. . Atrial Fibrillation - pt on chronic [...] had left kidney and ureter removed in [place]- doing well . Hematuria - check UA. [...] is becoming uncontrolled. Incontinence - recommended vesicare. . Osteoporosis-prolia on june 25-patient to let Dr Hansen know strep swab daily anti histamine . Pharyngitis-Discussed natural and expected course of this diagnosis and need to alert me if symptoms do not follow expected course, or if any worse. Recommended salt water gargles as needed for pain. Tylenol/motrin as needed for fever/discomfort. . Hypertension - well controlled - continue [...] worse. RX sent to patient's pharmacy. . Atrial Fibrillation - pt on chronic [...] the weight that was lost during hospitalization. boil ease or recticare - if having acute or worsening discomfort - call doctor - may need an antibiotic. MUCINEX 600mg twice daily for decrease in mucus in throat . boil ease or recticare - if having acute or worsening discomfort - call doctor - may need an antibiotic. MUCINEX 600mg twice daily for decrease in mucus in throat use simethicone four times daily - after [...] if symptoms not improved on this regimen. Miralax- take 1/2 dose daily, and may [...] symptoms not improved on this regimen. . Hematuria-positive blood on UA today-plan to [...] if their heart rate is becoming uncontrolled. stop mucinex . Hypertension - well controlled [...] exposure,and dyspnea on exertion - will ask [employer] [facility] Patient do an overnight oxygen study [...] daily use of bactroban - monitor symptoms. doctor will refer to Dr. Joel Collins - for nonsurgical intervention for potential electrical stimulation/training of pelvic floor muscles - for strengthening - can start on the treatment when you get back from [place] - will also ask him about doing [...] the treatment when you get back from [place] - will also ask him about doing a cystoscopy to look into bladder to see if there is any bladder irritation. keep using the Premarin - use about 25Cent size of cream onto finger to apply to urethra and do this three times weekly.
--- OUTSIDE RECORDS SUMMARY | 2018-12-10 19:03 | XMS REPORT | CCD ---
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 Unknown Has never used illegal drugs 03/15/2011 Allergies, Adverse Reactions, Alerts Substance Reaction Codes Entered Date Inactivated Date Status BACTINE RxNorm: 684402 03/04/2011 No Inactive Date Active MICONAZOLE RxNorm: 6932 03/04/2011 No Inactive Date Active NEOSPORIN RxNorm: 200609 03/04/2011 No Inactive Date Active NEOMYCIN RxNorm: 7299 03/04/2011 No Inactive Date Active CORTISPORIN RxNorm: 87231 03/04/2011 No Inactive Date Active bactrim RxNorm: 070885 03/13/2012 No Inactive Date Active AUGMENTIN diarrhea RxNorm: 568478 2016 No Inactive Date Active METRONIDAZOLE Unknown [...] 401.9 ICD-10: I10 Active 12/25/2013 Unknown Other manager terminal (current) drug therapy ICD-9: V58.83 ICD-10: [...] 706.2 ICD-10: L72.0 Active 02/01/2016 Unknown Other manager terminal (current) drug therapy ICD-9: V58.69 ICD-10: Z79.899 [...] ICD-9: 401.9 ICD-10: I10 12/25/2013 Active Other manager terminal (current) drug therapy ICD-9: V58.83 ICD-10: [...] ICD-9: 706.2 ICD-10: L72.0 02/01/2016 Active Other fdc (current) drug therapy ICD-9: V58.69 ICD-10: Z79.899 [...] Start Date Stop Date Status Fill Instructions cyclobenzaprine 5 mg tablet RxNorm: 176418 1/2 Tablet(s) PO TID TABLET(S) 1/2 TABLET(S) PO Q8 NEEDED MUSCLE SPASMS 10/31/2018 04/28/2019 Active Imvexxy Starter Pack 4 mcg vaginal insert, dose pack RxNorm: 5132278 1 dose VAG BIW 10/31/2018 01/28/2019 Active Voltaren 1 % topical gel RxNorm: 876175 2 Gram(s) TOP QID on left shoulder and bilateral hands 10/17/2018 05/14/2019 Active PA APPROVED UNTIL JUL 09 2019 [id number] amlodipine 5 mg tablet RxNorm: 268245 1/2 TABLET(S) PO DAILY MAY TAKE AN EXTRA 1/2 PILL AT THE END OF THE DAY IF BLOOD PRESSURE IS ELEVATED OVER 140 10/15/2018 02/11/2019 Active Patient requests 90 days supply Voltaren 1 % topical gel RxNorm: 920726 2 Gram(s) TOP QID on left shoulder and bilateral hands 10/09/2018 10/16/2018 Inactive levothyroxine 75 mcg tablet RxNorm: 727755 1 Tablet(s) PO daily 09/19/2018 01/16/2019 Active Keflex 500 mg capsule RxNorm: 690130 1 Capsule(s) PO TID 09/12/2018 09/18/2018 Inactive spironolactone 25 mg tablet RxNorm: 700880 1 Tablet(s) PO BID 08/14/2018 11/06/2019 Active see new directions and quantity cyclobenzaprine 5 mg tablet RxNorm: 605081 Tablet(s) TABLET(S) 1/2 TABLET(S) PO Q8 NEEDED MUSCLE SPASMS 08/14/2018 10/30/2018 Inactive Nitro-Bid 2 % transdermal ointment RxNorm: 050071 1 dime size amount TD BID to fingers and toes 08/14/2018 09/12/2018 Inactive cyclobenzaprine 5 mg tablet RxNorm: 985152 TABLET(S) 1/2 TABLET(S) PO Q8 NEEDED MUSCLE SPASMS 08/06/2018 08/13/2018 Inactive amlodipine 5 mg tablet RxNorm: 250058 1/2 Tablet(s) PO daily may take an extra 1/2 pill at the end of the day if blood pressure is elevated over 140 07/26/2018 10/14/2018 Inactive cefdinir 300 mg capsule RxNorm: 019090 1 Capsule(s) PO BID 06/20/2018 06/26/2018 Inactive cefdinir 300 mg capsule RxNorm: 191353 1 Capsule(s) PO BID 06/20/2018 06/19/2018 Inactive metoprolol succinate ER 50 mg tablet,extended release 24 hr RxNorm: 789454 1.5 Tablet(s) daily 06/15/2018 03/11/2019 Active sucralfate 100 mg/mL oral suspension RxNorm: 420271 2 Teaspoon(s) PO TID as needed with reflux symptoms 06/04/2018 No Stop Date Active Vesicare 10 mg tablet RxNorm: 113628 1 TABLET(S) PO EVERY OTHER DAY 05/14/2018 01/08/2019 Active levothyroxine 50 mcg tablet RxNorm: 115539 1 TABLET(S) PO DAILY 04/30/2018 09/18/2018 Inactive Patient requests 90 days supply spironolactone 25 mg tablet RxNorm: 107448 1 Tablet(s) PO daily 03/14/2018 08/13/2018 Inactive levothyroxine 50 mcg tablet RxNorm: 505625 1 Tablet(s) PO daily 02/01/2018 04/29/2018 Inactive Eliquis 2.5 mg tablet RxNorm: 3396640 1 Tablet(s) PO BID 01/31/2018 02/20/2018 Inactive levothyroxine 50 mcg tablet RxNorm: 973524 1 Tablet(s) PO daily 01/31/2018 01/31/2018 Inactive Eliquis 2.5 mg tablet RxNorm: 7657791 TAKE 1 TABLET BY MOUTH TWICE DAILY 01/23/2018 07/21/2018 Inactive metoprolol succinate ER 50 mg tablet,extended release 24 hr RxNorm: 434164 1 TABLET(S) PO DAILY 01/23/2018 01/30/2018 Inactive metoprolol succinate ER 50 mg tablet,extended release 24 hr RxNorm: 055783 1.5 Tablet(s) daily 01/22/2018 06/14/2018 Inactive lisinopril 20 mg tablet RxNorm: 099411 1/2 Tablet(s) daily 01/19/2018 01/21/2018 Inactive Patient requests 90 days supply Singulair 10 mg tablet RxNorm: 304861 TAKE 1 TABLET BY MOUTH AT BEDTIME 01/18/2018 04/17/2018 Inactive Patient requests 90 days supply Singulair 10 mg tablet RxNorm: 676438 Tablet(s) PO 01/17/2018 01/17/2018 Inactive digoxin 125 mcg tablet RxNorm: 327733 1 TABLET(S) PO DAILY 01/03/2018 12/28/2018 Active Symbicort 160 mcg-4.5 mcg/actuation HFA aerosol inhaler RxNorm: 2037647 2 Puff(s) INH BID 12/14/2017 04/12/2018 Inactive please dispense an aerochamber for patient as well as her symbicort pantoprazole 40 mg tablet,delayed release RxNorm: 824158 1 Tablet(s) PO daily 12/14/2017 12/08/2018 Active cyclobenzaprine 5 mg tablet RxNorm: 066082 Tablet(s) 1/2 TABLET(S) PO Q8 NEEDED MUSCLE SPASMS 12/14/2017 08/05/2018 Inactive ProAir RespiClick 90 mcg/actuation breath activated RxNorm: 3262222 1-2 INH QID as needed shortness of breath 12/14/2017 07/11/2018 Inactive cyclobenzaprine 5 mg tablet RxNorm: 034753 1/2 TABLET(S) PO Q8 NEEDED MUSCLE SPASMS 12/08/2017 12/13/2017 Inactive betamethasone dipropionate 0.05 % topical ointment RxNorm: 020981 1 Application TOP TID use topically on the rectal tissue three times daily x 1 week then as needed 11/13/2017 No Stop Date Active Premarin 0.625 mg/gram vaginal cream RxNorm: 714816 1/2 GRAM(S) VAG TIW 11/13/2017 10/30/2018 Inactive cyclobenzaprine 5 mg tablet RxNorm: 315352 1/2 TABLET(S) PO Q8 NEEDED MUSCLE SPASMS 10/17/2017 12/07/2017 Inactive Vesicare 10 mg tablet RxNorm: 134669 1 Tablet(s) PO every other day 10/17/2017 04/14/2018 Inactive lisinopril 20 mg tablet RxNorm: 163580 1 TABLET(S) PO DAILY 10/02/2017 01/18/2018 Inactive Patient requests 90 days supply levothyroxine 75 mcg tablet RxNorm: 396644 1 TABLET(S) PO DAILY 09/25/2017 01/30/2018 Inactive spironolactone 25 mg tablet RxNorm: 281325 1 TABLET(S) PO DAILY 08/16/2017 03/13/2018 Inactive cyclobenzaprine 5 mg tablet RxNorm: 112714 1/2 TABLET(S) PO Q8 NEEDED MUSCLE SPASMS 08/16/2017 10/16/2017 Inactive Eliquis 2.5 mg tablet RxNorm: 9959812 TAKE 1 TABLET BY MOUTH TWICE DAILY 07/26/2017 01/21/2018 Inactive cyclobenzaprine 5 mg tablet RxNorm: 540973 1/2 Tablet(s) PO Q8 as needed muscle spasms 06/19/2017 08/15/2017 Inactive lisinopril 20 mg tablet RxNorm: 554061 1 TABLET(S) PO DAILY 06/12/2017 10/01/2017 Inactive metoprolol succinate ER 50 mg tablet,extended release 24 hr RxNorm: 593218 1 TABLET(S) PO DAILY 04/07/2017 01/01/2018 Inactive spironolactone 25 mg tablet RxNorm: 656093 1 Tablet(s) PO daily 03/27/2017 03/13/2018 Inactive acyclovir 800 mg tablet RxNorm: 339849 1 Tablet(s) PO TID 03/21/2017 03/30/2017 Inactive acyclovir 800 mg tablet RxNorm: 726487 1 Tablet(s) PO TID 03/21/2017 03/20/2017 Inactive levothyroxine 75 mcg tablet RxNorm: 167841 1 Tablet(s) PO daily 03/16/2017 09/11/2017 Inactive spironolactone 25 mg tablet RxNorm: 694542 1 TABLET(S) PO DAILY 02/09/2017 03/26/2017 Inactive lisinopril 20 mg tablet RxNorm: 662523 1 TABLET(S) PO DAILY 01/02/2017 05/31/2017 Inactive Zithromax Z-Claudio 250 mg tablet RxNorm: 436471 1 Tablet(s) PO UD 11/29/2016 12/03/2016 Inactive ZPACK Keflex 500 mg capsule RxNorm: 907217 1 Capsule(s) PO TID 11/23/2016 12/02/2016 Inactive guaifenesin 400 mg tablet RxNorm: 762148 1 Tablet(s) PO Q6 as needed 11/23/2016 11/27/2016 Inactive omeprazole 40 mg capsule,delayed release RxNorm: 071722 1 Capsule(s) PO QPM 11/02/2016 12/13/2017 Inactive digoxin 125 mcg tablet RxNorm: 251451 1 TABLET(S) PO DAILY 10/27/2016 07/23/2017 Inactive cyclobenzaprine 5 mg tablet RxNorm: 322176 1/2 Tablet(s) PO Q8 PRN 10/25/2016 06/18/2017 Inactive prn muscle spasms Augmentin 500 mg-125 mg tablet RxNorm: 259647 1 Tablet(s) PO BID 10/24/2016 11/02/2016 Inactive Lasix 20 mg tablet RxNorm: 334288 Tablet(s) PRN one to two times a week if needed 07/27/2016 No Stop Date Active Patient requests 90 days supply spironolactone 25 mg tablet RxNorm: 096383 1 Tablet(s) PO daily 07/27/2016 02/08/2017 Inactive Diflucan 150 mg tablet RxNorm: 326058 1 Tablet(s) PO daily 07/27/2016 08/02/2016 Inactive lisinopril 20 mg tablet RxNorm: 260766 1 Tablet(s) PO daily 07/12/2016 01/01/2017 Inactive Lasix 20 mg tablet RxNorm: 429056 1 TABLET(S) PO EVERY OTHER DAY EVERY OTHER DAY 06/10/2016 07/26/2016 Inactive Patient requests 90 days supply potassium chloride ER 10 mEq capsule,extended release RxNorm: 020651 1 CAPSULE(S) PO EVERY OTHER DAY 06/10/2016 07/26/2016 Inactive Patient requests 90 days supply potassium chloride ER 10 mEq capsule,extended release RxNorm: 940381 1 Capsule(s) PO every other day 06/09/2016 06/09/2016 Inactive Lasix 20 mg tablet RxNorm: 980014 1 Tablet(s) PO every other day every other day 06/09/2016 06/09/2016 Inactive levothyroxine 88 mcg tablet RxNorm: 869873 1 Tablet(s) PO daily 05/11/2016 11/06/2016 Inactive Premarin 0.625 mg/gram vaginal cream RxNorm: 472943 1/2 Gram(s) VAG TIW 03/24/2016 03/18/2017 Inactive metoprolol succinate ER 50 mg tablet,extended release 24 hr RxNorm: 003098 1 Tablet(s) PO daily 03/24/2016 03/18/2017 Inactive pantoprazole 40 mg tablet,delayed release RxNorm: 814237 1 Tablet(s) PO daily 02/08/2016 11/01/2016 Inactive betamethasone dipropionate 0.05 % topical ointment RxNorm: 296703 1 Application TOP TID use topically on the rectal tissue three times daily x 1 week then as needed 02/02/2016 11/12/2017 Inactive pantoprazole 40 mg tablet,delayed release RxNorm: 063605 1 Tablet(s) PO daily 2016 02/07/2016 Inactive alprazolam 0.25 mg tablet RxNorm: 548242 1 Tablet(s) PO Q6 as needed 12/04/2015 No Stop Date Active Vesicare 10 mg tablet RxNorm: 467079 1 Tablet(s) PO every other day 11/03/2015 10/16/2017 Inactive alprazolam 0.25 mg tablet RxNorm: 194165 1 Tablet(s) PO Q6 as needed 11/03/2015 12/03/2015 Inactive Premarin 0.625 mg/gram vaginal cream RxNorm: 867731 1/2 Gram(s) VAG TIW 11/03/2015 03/23/2016 Inactive levothyroxine 88 mcg tablet RxNorm: 608286 1 Tablet(s) PO daily 11/03/2015 05/10/2016 Inactive Diflucan 150 mg tablet RxNorm: 274313 1 Tablet(s) PO daily 10/19/2015 10/25/2015 Inactive cetirizine 10 mg chewable tablet RxNorm: 2067292 1 Tablet(s) PO daily 10/13/2015 11/11/2015 Inactive cetirizine 10 mg capsule RxNorm: 5719173 1 Capsule(s) PO daily 10/13/2015 11/11/2015 Inactive Vesicare 10 mg tablet RxNorm: 684343 1/2 TABLET(S) PO BID 09/21/2015 11/02/2015 Inactive betamethasone dipropionate 0.05 % topical ointment RxNorm: 132249 1 Application TOP TID use topically on the rectal tissue three times daily x 1 week then as needed 09/15/2015 02/01/2016 Inactive lisinopril 20 mg tablet RxNorm: 117983 1 Tablet(s) PO daily 09/01/2015 07/11/2016 Inactive digoxin 125 mcg tablet RxNorm: 078492 1 Tablet(s) PO daily 09/01/2015 08/25/2016 Inactive Augmentin 500 mg-125 mg tablet RxNorm: 905351 1 Tablet(s) PO TID 05/26/2015 06/04/2015 Inactive Pyridium 200 mg tablet RxNorm: 5078323 1 Tablet(s) PO TID 05/26/2015 05/27/2015 Inactive levothyroxine 88 mcg tablet RxNorm: 152235 1 Tablet(s) PO daily except 1/2 pill on monday and 05/07/2015 11/02/2015 Inactive digoxin 125 mcg tablet RxNorm: 751752 1 Tablet(s) PO daily 05/07/2015 08/31/2015 Inactive lisinopril 20 mg tablet RxNorm: 550071 1 TABLET(S) PO BID 04/13/2015 09/01/2015 Inactive Coumadin 1 mg tablet RxNorm: 209374 1 TABLET(S) PO DAILY 03/31/2015 08/31/2015 Inactive Coumadin 2 mg tablet RxNorm: 625027 4MG IN AM AND 1MG AT NIGHT TABLET(S) PO DAILY DIRECTED. 03/31/2015 08/31/2015 Inactive levothyroxine 88 mcg tablet RxNorm: 979487 1 Tablet(s) PO daily 03/23/2015 05/06/2015 Inactive alprazolam 0.25 mg tablet RxNorm: 410135 Tablet(s) PO 03/23/2015 04/06/2015 Inactive levothyroxine 88 mcg tablet RxNorm: 436770 1 Tablet(s) PO daily 01/28/2015 03/22/2015 Inactive levothyroxine 88 mcg tablet RxNorm: 371535 1 Tablet(s) PO daily 01/28/2015 01/27/2015 Inactive diltiazem ER 120 mg capsule,extended release RxNorm: 841793 1 Capsule(s) PO BID patient would like 4 months at a time 01/06/2015 09/28/2015 Inactive digoxin 125 mcg tablet RxNorm: 908417 Tablet(s) 1 TABLET(S) PO DAILY 12/24/2014 12/23/2014 Inactive pt will be paying palomares (On $4 list)Patient requests 90 days supply digoxin 125 mcg tablet RxNorm: 186946 Tablet(s) 1 TABLET(S) PO DAILY M W F Sat and 2 tabs on T TH 12/24/2014 05/06/2015 Inactive pt will be paying palomares (On $4 list)Patient requests 90 days supply dicyclomine 20 mg tablet RxNorm: 507805 1 Tablet(s) PO daily 11/17/2014 08/31/2015 Inactive one ac dinner and up to tid prn levothyroxine 88 mcg tablet RxNorm: 016161 1 Tablet(s) PO daily 11/03/2014 01/27/2015 Inactive Premarin 0.625 mg/gram vaginal cream RxNorm: 900086 1 APPLICATION VAG 1 APPLICATOR PER VAGINA 3 TIMES PER WEEK 11/03/2014 07/30/2015 Inactive digoxin 125 mcg tablet RxNorm: 619976 1 TABLET(S) PO DAILY 09/29/2014 12/23/2014 Inactive pt will be paying palomares (On $4 list)Patient requests 90 days supply digoxin 125 mcg tablet RxNorm: 984717 1 TABLET(S) PO DAILY 07/11/2014 04/06/2015 Inactive Vesicare 10 mg tablet RxNorm: 247966 1/2 Tablet(s) PO BID 05/20/2014 05/14/2015 Inactive Levaquin 500 mg tablet RxNorm: 976586 1 Tablet(s) PO daily 05/06/2014 05/08/2014 Inactive take probiotic BID while on ABT Levaquin 500 mg tablet RxNorm: 918435 1 Tablet(s) PO daily 05/02/2014 05/05/2014 Inactive take probiotic BID while on ABT diltiazem ER 120 mg capsule,extended release RxNorm: 772665 1 Capsule(s) PO BID patient would like 4 months at a time 04/29/2014 2015 Inactive Vesicare 10 mg tablet RxNorm: 065282 1/2 Tablet(s) PO BID 04/29/2014 05/19/2014 Inactive lisinopril 20 mg tablet RxNorm: 367384 1 Tablet(s) PO BID 03/20/2014 03/14/2015 Inactive diltiazem 90 mg tablet RxNorm: 387575 1/2 TABLET(S) PO QPM 03/04/2014 04/28/2014 Inactive also 180 q am diltiazem ER 120 mg capsule,extended release RxNorm: 219601 1 Capsule(s) PO daily patient would like 4 months at a time 01/29/2014 04/28/2014 Inactive Vesicare 10 mg tablet RxNorm: 827471 1 Tablet(s) PO QHS 01/14/2014 04/28/2014 Inactive Coumadin 2 mg tablet RxNorm: 343359 4mg in AM and 1mg at night Tablet(s) PO daily as directed. 12/25/2013 03/30/2015 Inactive Metanx 3 mg-35 mg-2 mg tablet RxNorm: 1 Tablet(s) PO daily 12/25/2013 11/02/2015 Inactive digoxin 125 mcg tablet RxNorm: 593177 1 Tablet(s) PO daily 12/25/2013 09/28/2014 Inactive pt will be paying palomares (On $4 list) Coumadin 2 mg tablet RxNorm: 746174 7.5 wed 5mg other Tablet(s) PO as directed. 12/03/2013 12/24/2013 Inactive omeprazole 20 mg tablet,delayed release RxNorm: 879223 1 Tablet(s) PO BID 11/27/2013 04/28/2014 Inactive Coumadin 2 mg tablet RxNorm: 930017 5 mg daily Tablet(s) PO as directed. 11/26/2013 12/02/2013 Inactive 5 mg daily Xanax 0.25 mg tablet RxNorm: 186541 1 Tablet(s) PO Q6 PRN 11/11/2013 12/25/2013 Inactive alprazolam 0.25 mg tablet RxNorm: 484354 tablet oral 11/11/2013 03/22/2015 Inactive sucralfate 1 gram tablet RxNorm: 959508 1 Tablet(s) PO AC & HS 11/04/2013 11/03/2013 Inactive sucralfate 1 gram tablet RxNorm: 908338 1 Tablet(s) PO AC & HS 11/04/2013 01/02/2014 Inactive Synthroid 100 mcg tablet RxNorm: 825032 1 Tablet(s) PO daily 10/31/2013 10/25/2014 Inactive Synthroid 100 mcg tablet RxNorm: 194409 1 Tablet(s) PO daily 09/30/2013 10/29/2013 Inactive Vesicare 10 mg tablet RxNorm: 974465 1 Tablet(s) PO QHS 09/30/2013 01/13/2014 Inactive Lotemax 0.5 % eye ointment RxNorm: 2675070 ointment opht 09/06/2013 12/10/2013 Inactive levothyroxine 100 mcg tablet RxNorm: 895325 tablet oral 09/05/2013 11/02/2014 Inactive Synthroid 100 mcg tablet RxNorm: 800984 1 Tablet(s) PO daily 09/05/2013 09/29/2013 Inactive Prolia 60 mg/mL Sub-Q Syringe RxNorm: 176486 1 Milliliter(s) SQ 06/25/2013 11/02/2015 Inactive dicyclomine 20 mg tablet RxNorm: 858867 1 Tablet(s) PO daily 06/24/2013 06/18/2014 Inactive one ac dinner and up to tid prn omeprazole 20 mg tablet,delayed release RxNorm: 774268 1 Tablet(s) PO BID 06/24/2013 11/26/2013 Inactive Cipro 500 mg tablet RxNorm: 209900 1 Tablet(s) PO BID 06/20/2013 06/26/2013 Inactive diltiazem ER 120 mg capsule,extended release RxNorm: 964166 1 Capsule(s) PO daily patient would like 4 months at a time 06/03/2013 01/28/2014 Inactive Coumadin 2 mg tablet RxNorm: 214027 as directed Tablet(s) PO as directed. 05/29/2013 11/25/2013 Inactive 5 mg daily Synthroid 88 mcg tablet RxNorm: 021895 1 Tablet(s) PO daily 04/24/2013 04/23/2013 Inactive Synthroid 88 mcg tablet RxNorm: 387121 1 Tablet(s) PO daily 04/24/2013 07/28/2013 Inactive Premarin 0.625 mg/gram vaginal cream RxNorm: 774373 1 Application VAG 1 applicator per vagina 3 times per week 04/23/2013 04/17/2014 Inactive Influenza Virus Vaccine 0.5 mL RxNorm: IM 04/23/2013 04/23/2013 Inactive digoxin 125 mcg tablet RxNorm: 655531 1 Tablet(s) PO daily 02/20/2013 04/20/2013 Inactive pt will be paying palomares (On $4 list) Digox 125 mcg tablet RxNorm: 4740617 tablet oral 02/13/2013 03/20/2014 Inactive digoxin 125 mcg tablet RxNorm: 527771 1 Tablet(s) PO daily 02/13/2013 02/19/2013 Inactive diltiazem 90 mg tablet RxNorm: 068533 1/2 Tablet(s) PO QPM 02/13/2013 02/07/2014 Inactive also 180 q am Levoxyl 75 mcg tablet RxNorm: 211069 1 Tablet(s) PO 01/16/2013 04/23/2013 Inactive Coumadin 2 mg tablet RxNorm: 813864 6mg daily except 3mg on wed and fri Tablet(s) PO 01/15/2013 05/28/2013 Inactive 5 mg daily Coumadin 2 mg tablet RxNorm: 056629 6mg daily Tablet(s) PO 12/21/2012 01/14/2013 Inactive 5 mg daily silver sulfadiazine 1 % Topical Cream RxNorm: 166260 TOP apply to affected area with each dressing change 12/19/2012 12/25/2013 Inactive cephalexin 500 mg tablet RxNorm: 372027 1 Tablet(s) PO TID 12/11/2012 12/17/2012 Inactive digoxin 125 mcg tablet RxNorm: 622644 1 Tablet(s) PO daily 10/30/2012 02/12/2013 Inactive digoxin 125 mcg tablet RxNorm: 353328 2 tab tue thurs one other days Tablet(s) PO daily 10/23/2012 10/29/2012 Inactive lisinopril 10 mg tablet RxNorm: 782580 1 Tablet(s) PO daily 10/17/2012 08/14/2013 Inactive Cipro 500 mg tablet RxNorm: 036641 1 Tablet(s) PO BID 09/13/2012 09/19/2012 Inactive Coumadin 1 mg tablet RxNorm: 460265 1 Tablet(s) PO daily 09/03/2012 09/02/2012 Inactive Coumadin 1 mg tablet RxNorm: 044551 1 Tablet(s) PO daily 09/03/2012 12/21/2012 Inactive Coumadin 2 mg tablet RxNorm: 516704 Tablet(s) PO 07/25/2012 12/20/2012 Inactive 5 mg daily digoxin 125 mcg tablet RxNorm: 387751 1 Tablet(s) PO daily 06/28/2012 10/22/2012 Inactive Coumadin 2 mg tablet RxNorm: 754552 Tablet(s) PO 06/27/2012 07/24/2012 Inactive 5mg daily except 4mg on monday Coumadin 2 mg tablet RxNorm: 441640 Tablet(s) PO 06/19/2012 06/26/2012 Inactive 5mg tue wed thur sat sun4mg mon (has 2mg and 1 mg tab) digoxin 125 mcg tablet RxNorm: 668741 1 Tablet(s) PO daily 05/29/2012 06/27/2012 Inactive Coumadin 2 mg tablet RxNorm: 314625 Tablet(s) PO 05/15/2012 06/18/2012 Inactive 5mg tue thur sat sun4mg mond(has 2mg and 1 mg tab) Coumadin 2 mg tablet RxNorm: 885609 Tablet(s) PO 04/25/2012 05/14/2012 Inactive 5mg tue thru sat4mg mond sun(has 2mg and 1 mg tab) Metanx 3 mg-35 mg-2 mg tablet RxNorm: 1 Tablet(s) PO BID 04/18/2012 12/24/2013 Inactive dicyclomine 20 mg tablet RxNorm: 511496 1 Tablet(s) PO 04/18/2012 06/23/2013 Inactive one ac dinner and up to tid prn digoxin 125 mcg tablet RxNorm: 955436 Tablet(s) PO daily except .25 on Tuesdays and 04/09/2012 05/28/2012 Inactive omeprazole 20 mg tablet,delayed release RxNorm: 609048 1 Tablet(s) PO BID 04/09/2012 04/03/2013 Inactive digoxin 125 mcg tablet RxNorm: 395396 1 Tablet(s) PO UD daily except none on Tuesdays and 03/13/2012 04/08/2012 Inactive Premarin 0.625 mg/gram Vaginal Cream RxNorm: 053769 1 Application VAG 1 applicator per vagina 3 times per week 02/20/2012 02/13/2013 Inactive omeprazole 20 mg tablet,delayed release RxNorm: 032955 1 Tablet(s) PO BID 02/13/2012 04/08/2012 Inactive Vesicare 10 mg tablet RxNorm: 542694 1 Tablet(s) PO QHS 02/13/2012 02/06/2013 Inactive Diflucan 150 mg tablet RxNorm: 141180 1 Tablet(s) PO daily 02/13/2012 02/19/2012 Inactive omeprazole 20 mg tablet,delayed release RxNorm: 830679 1 Tablet(s) PO BID 01/06/2012 02/12/2012 Inactive Calcium 600 + D(3) 600 mg (1,500)-200 unit Tab RxNorm: 840682 2 Tablet(s) PO BID 01/06/2012 08/31/2015 Inactive diltiazem 90 mg tablet RxNorm: 149829 1/2 Tablet(s) PO QPM 12/26/2011 02/12/2013 Inactive also 180 q am diltiazem ER 180 mg Cap RxNorm: 833514 1 Capsule(s) PO QAM 12/26/2011 04/08/2012 Inactive 45mg q hs Flagyl 500 mg Tab RxNorm: 665079 1 Tablet(s) PO BID 12/14/2011 12/20/2011 Inactive dicyclomine 10 mg Cap RxNorm: 994564 1 Capsule(s) PO AC & HS 12/01/2011 12/25/2011 Inactive Levaquin 500 mg Tab RxNorm: 061778 1 Tablet(s) PO daily 11/23/2011 11/29/2011 Inactive Rocephin 500 mg Solution for Injection RxNorm: 3106992 Inj 11/23/2011 11/23/2011 Inactive acyclovir 400 mg Tab RxNorm: 457121 1 Tablet(s) PO QID 11/10/2011 11/19/2011 Inactive acyclovir 400 mg Tab RxNorm: 179227 1 Tablet(s) PO QID 11/10/2011 11/09/2011 Inactive lisinopril 20 mg Tab RxNorm: 857065 1 Tablet(s) PO daily 10/03/2011 11/27/2011 Inactive lisinopril 20 mg Tab RxNorm: 095506 1 Tablet(s) PO daily 08/08/2011 10/02/2011 Inactive Reclast 5 mg/100 mL IV RxNorm: 775236 Milliliter(s) IV Yearly 06/08/2011 01/16/[address] Hansen manages Rocephin 500 mg Solution for Injection RxNorm: 2111633 1 Milliliter(s) Inj 03/04/2011 08/08/2011 Inactive Ceftin 500 mg Tab RxNorm: 720369 1 Tablet(s) PO BID 03/04/2011 08/08/2011 Inactive Vitamin D3 1,000 unit tablet RxNorm: 580710 2 Tablet(s) PO daily No Start Date Active Stool Softener 100 mg tablet RxNorm: 4962681 2 Tablet(s) PO QHS No Start Date Active Beano tablet RxNorm: 2-3 Tablet(s) PO as needed No Start Date Active Probiotic Pearls 15 mg (1 billion cell) capsule,delayed release RxNorm: 1 Capsule(s) PO daily No Start Date Active Lipitor 10 mg tablet RxNorm: 689106 1 Tablet(s) PO daily No Start Date Active Miralax 17 gram oral powder packet RxNorm: 138473 1/2 packet PO QHS No Start Date Active multivitamin Tab RxNorm: 1 Tablet(s) PO daily No Start Date Active Tylenol Extra Strength 500 mg tablet RxNorm: 945714 2 Tablet(s) PO as needed No Start Date Active Combigan 0.2 %-0.5 % eye drops RxNorm: 923397 1 Drop(s) OPH BID No Start Date Active 1 drop twice daily left eye Lexapro 5 mg tablet RxNorm: 835250 1 Tablet(s) PO daily No Start Date Active Tatiana Allergy 180 mg tablet RxNorm: 331226 1 Tablet(s) PO daily No Start Date Active Lotemax 0.5 % eye drops,suspension RxNorm: 294309 1 Drop(s) OPH right eye BID No Start Date Active Levoxyl 50 mcg tablet RxNorm: 839569 1 Tablet(s) PO daily No Start Date 01/15/2013 Inactive lisinopril-hydrochlorothiazide 20 mg-25 mg Tab RxNorm: 355746 1 Tablet(s) PO daily No Start Date 08/07/2011 Inactive Metanx 3 mg-35 mg-2 mg tablet RxNorm: 1 Tablet(s) PO daily No Start Date 04/17/2012 Inactive diltiazem CD 120 mg capsule,extended release 24 hr RxNorm: 307218 1 Capsule(s) PO daily No Start Date 09/28/2015 Inactive lisinopril 20 mg tablet RxNorm: 403529 Tablet(s) PO No Start Date Active Lumigan 0.01 % Eye Drops RxNorm: 4173123 1 Drop(s) OPH daily Left eye No Start Date 12/10/2013 Inactive prednisolone acetate 1 % Eye Drops, Susp RxNorm: 3359274 1 Drop(s) OPH BID 1 drop right eye am and hs No Start Date 11/02/2015 Inactive Eliquis 5 mg tablet RxNorm: 4831178 1 Tablet(s) PO BID No Start Date 06/08/2016 Inactive potassium gluconate (bulk) Misc RxNorm: Miscellaneous No Start Date 12/25/2011 Inactive Calcium 600 + D(3) 600 mg (1,500)-200 unit Tab RxNorm: 884943 3 Tablet(s) PO daily No Start Date 2012 Inactive Zyrtec 10 mg tablet RxNorm: 8551769 1 Tablet(s) PO daily No Start Date 08/02/2016 Inactive Synthroid 100 mcg tablet RxNorm: 329647 1 Tablet(s) PO daily No Start Date 09/04/2013 Inactive metoprolol succinate ER 50 mg tablet,extended release 24 hr RxNorm: 175317 1 Tablet(s) PO daily No Start Date 03/23/2016 Inactive Carafate 100 mg/mL oral suspension RxNorm: 046785 2 Teaspoon(s) PO as needed with reflux symptoms No Start Date 06/03/2018 Inactive Metanx 3 mg-35 mg-2 mg tablet RxNorm: 1 Tablet(s) PO daily 2pm No Start Date 11/02/2015 Inactive Lexapro 5 mg tablet RxNorm: 892001 1 Tablet(s) PO daily No Start Date 08/18/2015 Inactive Iron (dried) oral RxNorm: 50122 oral No Start Date 11/02/2015 Inactive timolol 0.5 % Eye Drops RxNorm: 359454 1 Drop(s) OPH daily left eye No Start Date 12/18/2013 Inactive multivitamin Cap RxNorm: 1 Capsule(s) PO daily No Start Date 12/25/2011 Inactive dicyclomine 10 mg Cap RxNorm: 526565 2 Capsule(s) PO daily No Start Date 11/30/2011 Inactive silver sulfadiazine 1 % Topical Cream RxNorm: 750651 TOP apply to affected area with each dressing change No Start Date 12/18/2012 Inactive magnesium oxide 400 mg Tab RxNorm: 716468 1 Tablet(s) PO daily No Start Date 11/02/2015 Inactive Pradaxa 75 mg Cap RxNorm: 8918489 1 Capsule(s) PO BID No Start Date 04/09/2012 Inactive magnesium oxide 400 mg Tab RxNorm: 566909 2 Tablet(s) PO daily magnesium plus zinc No Start Date 12/25/2011 Inactive biotin 1000 mg RxNorm: 1 PO daily No Start Date 12/25/2011 Inactive Synthroid 50 mcg Tab RxNorm: 288127 Tablet(s) PO No Start Date 12/25/2011 Inactive diltiazem ER 180 mg Cap RxNorm: 514479 1 Capsule(s) PO daily No Start Date 12/25/2011 Inactive 1 D 3 1000 iu Oral RxNorm: Oral No Start Date 12/25/2011 Inactive Coumadin 2 mg tablet RxNorm: 831867 Tablet(s) PO No Start Date 04/24/2012 Inactive 5mg tue [id number] mon sat sun(has 2mg and 1 mg tab) dicyclomine 20 mg tablet RxNorm: 241569 Tablet(s) PO No Start Date 04/17/2012 Inactive one ac dinner and up to tid prn lactobacillus acidophilus tablet RxNorm: 1 Tablet(s) PO daily No Start Date 11/03/2015 Inactive Eliquis 2.5 mg tablet RxNorm: 4652077 1 Tablet(s) PO BID No Start Date 07/25/2017 Inactive Levoxyl 75 mcg Tab RxNorm: 740771 1 Tablet(s) PO daily No Start Date 10/02/2011 Inactive digoxin 125 mcg tablet RxNorm: 042666 1 Tablet(s) PO daily No Start Date 03/12/2012 Inactive pantoprazole 40 mg tablet,delayed release RxNorm: 125818 1 Tablet(s) PO BID No Start Date 01/04/2016 Inactive cyclobenzaprine 5 mg tablet RxNorm: 052287 1/2 Tablet(s) PO Q8 PRN No Start Date 10/24/2016 Inactive diltiazem 90 mg Tab RxNorm: 405402 1/2 Tablet(s) PO QPM No Start Date 12/25/2011 Inactive Mirapex 1 mg Tab RxNorm: 446796 1 Tablet(s) PO QHS No Start Date 12/25/2011 Inactive Xanax 0.25 mg tablet RxNorm: 692222 1 Tablet(s) PO Q6 PRN No Start Date 11/10/2013 Inactive Premarin 0.625 mg/gram Vaginal Cream RxNorm: 042491 1 Application VAG 1 applicator per vagina 3 times per week No Start Date 02/19/2012 Inactive Synthroid 75 mcg Tab RxNorm: 445515 1 Tablet(s) PO daily No Start Date 04/17/2012 Inactive lisinopril 40 mg Tab RxNorm: 898598 1 Tablet(s) PO daily No Start Date 12/25/2011 Inactive Glucosamine Chondroitin Complex Advanced [id number]-1.65mg Tab RxNorm: 2 Tablet(s) PO daily No Start Date 08/08/2011 Inactive famotidine 20 mg tablet RxNorm: 932307 1 Tablet(s) PO QAM No Start Date 11/02/2015 Inactive cranberry extract 250 mg Tab RxNorm: 445577 2 Tablet(s) PO daily No Start Date 08/08/2011 Inactive Vitamin D3 1,000 unit capsule RxNorm: 136307 1 Capsule(s) PO daily No Start Date 08/31/2015 Inactive aspirin 81 mg Tab, Delayed Release RxNorm: 737825 1 Tablet(s) PO daily No Start Date 08/31/2015 Inactive diltiazem ER 120 mg capsule,extended release RxNorm: 110682 1 Capsule(s) PO daily patient would like 4 months at a time No Start Date 06/02/2013 Inactive omeprazole 20 mg Tab, Delayed Release RxNorm: 351146 2 Tablet(s) PO QHS No Start Date 2012 Inactive lisinopril 10 mg tablet RxNorm: 189962 1/2 Tablet(s) PO daily No Start Date 10/16/2012 Inactive Pred Forte 1 % Eye Drops RxNorm: 218240 1 Drop(s) OPH daily right eye No Start Date 12/25/2013 Inactive calcium carbonate 400 mg Chewable Tab RxNorm: 139142 1 Tablet(s) PO daily No Start Date 08/08/2011 Inactive Vesicare 10 mg tablet RxNorm: 599617 1 Tablet(s) PO QHS No Start Date 02/12/2012 Inactive Symbicort 160 mcg-4.5 mcg/actuation HFA aerosol inhaler RxNorm: 5273101 2 Puff(s) INH BID No Start Date 12/13/2017 Inactive potassium 99 mg tablet RxNorm: 1 Tablet(s) PO QPM No Start Date 12/25/2013 Inactive timolol 0.25 % Eye Drops RxNorm: 887340 1 Drop(s) OPH daily Left eye No Start Date 04/17/2012 Inactive diltiazem ER 90 mg capsule,extended release 12 hr RxNorm: 893556 1/2 Capsule(s) PO QPM No Start Date 04/28/2014 Inactive cyclobenzaprine 5 mg Tab RxNorm: 228816 2-1 Tablet(s) PO Q8 PRN No Start Date 12/25/2011 Inactive 1/2 - 1 tab q 8hrs prn muscle spasms Medication Administered Medication Codes Instructions Start Date Status Influenza Virus Vaccine 0.5 mL RxNorm: 04/23/2013 No longer Active Rocephin 500 mg Solution for Injection RxNorm: 7292829 11/23/2011 No longer Active Immunizations Vaccine Codes [...] hypertension ICD-10: I10 ICD-9: 401.9 01/31/2018 Other manager terminal (current) drug therapy ICD-10: Z79.899 ICD-9: [...] hemorrhoids ICD-10: K64.0 ICD-9: 455.6 03/24/2016 Other fdc (current) drug therapy ICD-10: Z79.899 ICD-9: V58.69 [...] Ord62 ANION GAP 12 09/25/2018 Comp Metabolic Cal086 NA 130 mEq/L 09/12/2018 Comp Metabolic Ftx817 K 4.2 mEq/L 09/12/2018 Comp Metabolic Llu480 CL 98 mEq/L 09/12/2018 Comp Metabolic Tws556 CO2 23.0 mEq/L 09/12/2018 Comp Metabolic Qyn693 ANION GAP 13 09/12/2018 Comp Metabolic Sma082 GLUCOSE 129 mg/dL 09/12/2018 Comp Metabolic Clm271 Creat 1.0 mg/dL 09/12/2018 Comp Metabolic Zfx676 eGFR 58 ml/min/1.73m2 09/12/2018 Comp Metabolic Gjq960 BUN 28 mg/dL 09/12/2018 Comp Metabolic Baz307 B/C Ratio 28.9 Ratio 09/12/2018 Comp Metabolic Cpo005 CALCIUM 9.1 mg/dL 09/12/2018 Comp Metabolic Iso683 ALK PHOS 59 U/L 09/12/2018 Comp Metabolic Ydr733 AST(SGOT) 21 U/L 09/12/2018 Comp Metabolic Zda054 ALT(SGPT) 19 U/L 09/12/2018 Comp Metabolic Wvj609 BILI T 0.8 mg/dL 09/12/2018 Comp Metabolic Cyt188 ALBUMIN 3.9 g/dL 09/12/2018 Comp Metabolic Brk595 TPRO 6.5 g/dL 09/12/2018 Comp Metabolic Syo145 GLOB 2.6 g/dL 09/12/2018 Comp Metabolic Qtn423 A/G Ratio 1.5 Ratio 09/12/2018 Comp Metabolic Sbu084 Osmo 268 mOsmo 09/12/2018 Tsh Ord6 TSH (3rd IS) 12.84 uIU/mL 09/12/2018 Influenza A+B Vmu357 Influ A+B Negative 09/12/2018 Cbc With Differential [...] 12.3 % 09/12/2018 Cbc With Differential Ord2 [place]% 12.0 % 09/12/2018 Cbc With Differential Ord2 [...] 0.85 K/ul 09/12/2018 Cbc With Differential Ord2 [place] ABS# 0.8 K/ul 09/12/2018 Cbc With Differential Ord2 Eos ABS# 0.1 K/ul 09/12/2018 Cbc With Differential Ord2 Baso ABS# 0.0 K/ul 09/12/2018 Free T4 Xcc525 FREE T4 1.10 ng/dL 09/12/2018 Free T4 Frc035 FREE T4 1.19 ng/dL 05/08/2018 Digoxin Ord9 DIGOXIN 0.6 NG/ML 05/08/2018 Tsh Ord6 TSH (3rd IS) 10.58 uIU/mL 05/08/2018 Tsh Ord6 TSH (3rd IS) 1.07 uIU/mL 01/31/2018 Free T4 Uah231 FREE T4 1.63 ng/dL 01/31/2018 Digoxin Ord9 DIGOXIN 0.8 NG/ML 01/31/2018 C RAP A SC [id number] Strep A Negative 11/21/2016 Thyroid Antibodies 225898 THYROGLOBULIN ANTIBODY . 11/04/2016 Thyroid Antibodies 014536 THYROGLOBULIN ANTIBODY 919 IU/mL 11/04/2016 Thyroid Antibodies 772335 THYROID PEROXIDASE (TPO) AB . 11/04/2016 Thyroid Antibodies 356725 THYROID PEROXIDASE (TPO) AB 10 IU/mL 11/04/2016 Total T3 Ord42 TT3 0.64 ng/ml 11/03/2016 Free T4 Dtu229 FREE T4 1.39 ng/dL 11/02/2016 Tsh Ord6 [...] Differential Ord2 RDW 13.8 % 05/26/2015 Pt Vfn9595 PT 25.0 seconds 05/26/2015 Pt Mse7179 INR 2.4 05/26/2015 Pt Zbi9529 Low Intensity - 1.5-2.0 05/26/2015 Pt Kuk2488 Mod intensity - 2.0-3.0 05/26/2015 Pt Avp4874 Hi intensity - 3.0-4.0 05/26/2015 Uric Acid [...] Digoxin Ord9 DIGOXIN 0.6 NG/ML 05/06/2015 Pt Aql0430 PT 23.3 seconds 05/06/2015 Pt Ubk0544 INR 2.1 05/06/2015 Pt Hpu9478 Low Intensity - 1.5-2.0 05/06/2015 Pt Xsd6533 Mod intensity - 2.0-3.0 05/06/2015 Pt Lnq6753 Hi intensity - 3.0-4.0 05/06/2015 Free T4 Hcq462 FREE T4 1.65 ng/dL 05/06/2015 Comp Metabolic Lmg214 NA 132 mEq/L 05/06/2015 Comp Metabolic Nku278 K 4.1 mEq/L 05/06/2015 Comp Metabolic Qep591 CL 98 mEq/L 05/06/2015 Comp Metabolic Eta948 CO2 27.0 mEq/L 05/06/2015 Comp Metabolic Mjk602 ANION GAP 11 05/06/2015 Comp Metabolic Gnr602 GLUCOSE 71 mg/dL 05/06/2015 Comp Metabolic Rlq417 Creat 0.7 mg/dL 05/06/2015 Comp Metabolic Sex786 eGFR 82 ml/min/1.73m2 05/06/2015 Comp Metabolic Mkx309 BUN 16 mg/dL 05/06/2015 Comp Metabolic Rdf751 B/C Ratio 22.2 Ratio 05/06/2015 Comp Metabolic Gjd958 CALCIUM 9.4 mg/dL 05/06/2015 Comp Metabolic Opt377 ALK PHOS 60 U/L 05/06/2015 Comp Metabolic Ujv714 AST(SGOT) 22 U/L 05/06/2015 Comp Metabolic Gfh826 ALT(SGPT) 24 U/L 05/06/2015 Comp Metabolic Ope977 BILI T 0.8 mg/dL 05/06/2015 Comp Metabolic Lpf972 ALBUMIN 4.3 g/dL 05/06/2015 Comp Metabolic Zmf131 TPRO 7.6 g/dL 05/06/2015 Comp Metabolic Noc353 GLOB 3.3 g/dL 05/06/2015 Comp Metabolic Aut618 A/G Ratio 1.3 Ratio 05/06/2015 Comp Metabolic Pdi538 Osmo 264 mOsmo 05/06/2015 DIGOXIN 5634114 DIGOXIN 1.1 NG/ML 05/15/2013 PT/MC 4894941 PRO TIME 21.7 SEC 05/15/2013 PT/MC 4250021 INR MCMC 2.0 05/15/2013 CHEM 14 2396103 AST 24 U/L 04/23/2013 CHEM 14 6862243 ALT 31 IU/L 04/23/2013 CHEM 14 0683205 BUN 13 MG/DL 04/23/2013 CHEM 14 9362733 ALBUMIN 4.1 GM/DL 04/23/2013 CHEM 14 2134000 CHLORIDE 103 MMOL/L 04/23/2013 CHEM 14 0166764 BILI TOT 0.5 MG/DL 04/23/2013 CHEM 14 3698420 ALK PHOS 44 U/L 04/23/2013 CHEM 14 1859894 SODIUM 137 MMOL/L 04/23/2013 CHEM 14 9827377 CREATININE 0.61 MG/DL 04/23/2013 CHEM 14 6374715 CALCIUM 9.5 MG/DL 04/23/2013 CHEM 14 8676259 POTASSIUM 4.0 MMOL/L 04/23/2013 CHEM 14 3867181 PROT TOT 6.6 GM/DL 04/23/2013 CHEM 14 1603535 GLUCOSE 99 MG/DL 04/23/2013 CHEM 14 8401558 BICARB 27 MMOL/L 04/23/2013 CHEM 14 6605195 ANION GAP 7 MEQ/L 04/23/2013 GFR CALC 4309424 GFR AA >60 ML/MIN 04/23/2013 GFR CALC 3774080 GFR NON-AA >60 ML/MIN 04/23/2013 TSH 4174994 TSH 4.204 uIU/ML 04/23/2013 CBC 1605320 WBC 6.7 10e9/L 04/23/2013 CBC 6303591 RBC 4.19 10e12/L 04/23/2013 CBC 9441843 HGB 13.2 g/dL 04/23/2013 CBC 2517765 HCT DET 39.2 % 04/23/2013 CBC 9240040 MCV 93.6 fL 04/23/2013 CBC 4617697 MCH 31.5 pg 04/23/2013 CBC 6775843 MCHC 33.7 g/dL 04/23/2013 CBC 2393912 PLT 202 10e9/L 04/23/2013 CBC 6110493 MPV 11.4 fL 04/23/2013 CBC 3121180 YANIRA % 70.5 % 04/23/2013 CBC 9599152 LY % 19.6 % 04/23/2013 CBC 4587993 MON % 8.2 % 04/23/2013 CBC 3632355 EOS % 1.6 % 04/23/2013 CBC 8463441 BASO % 0.1 % 04/23/2013 CBC 6085686 RDW 13.7 % 04/23/2013 CBC 4555145 ABS YANIRA 4.72 10e9/L 04/23/2013 CBC 3305841 ABS LYMPH 1.31 10e9/L 04/23/2013 CBC 7251320 ABS MONO 0.55 10e9/L 04/23/2013 CBC 9360642 ABS EOS 0.11 10e9/L 04/23/2013 CBC 3440016 ABS BASO 0.01 10e9/L 04/23/2013 CBC 0626279 RDW-SD 45.7 fL 04/23/2013 PT/MC 8021595 PRO TIME 13.4 SEC 12/17/2012 PT/MC 2333918 INR MCMC 1.0 12/17/2012 PT/MC 0188368 PRO TIME 16.6 SEC 12/14/2012 PT/MC 2429987 INR MCMC 1.4 12/14/2012 PT/MC 9570780 PRO TIME 27.2 SEC 12/11/2012 PT/MC 4629836 INR MCMC 2.6 12/11/2012 DIGOXIN 1182231 DIGOXIN 2.1 NG/ML 03/08/2012 GFR CALC 0797458 GFR AA >60 ML/MIN 03/08/2012 GFR CALC 9470511 GFR NON-AA >60 ML/MIN 03/08/2012 CHEM 14 7688423 AST 16 U/L 03/08/2012 CHEM 14 1748106 ALT 14 IU/L 03/08/2012 CHEM 14 9863227 BUN 10 MG/DL 03/08/2012 CHEM 14 7616504 ALBUMIN 4.2 GM/DL 03/08/2012 CHEM 14 4902374 CHLORIDE 100 MMOL/L 03/08/2012 CHEM 14 9268864 BILI TOT 0.5 MG/DL 03/08/2012 CHEM 14 3371511 ALK PHOS 59 U/L 03/08/2012 CHEM 14 6985904 SODIUM 136 MMOL/L 03/08/2012 CHEM 14 8747943 CREATININE 0.65 MG/DL 03/08/2012 CHEM 14 2667298 CALCIUM 9.4 MG/DL 03/08/2012 CHEM 14 0933560 POTASSIUM 3.9 MMOL/L 03/08/2012 CHEM 14 6109258 PROT TOT 6.7 GM/DL 03/08/2012 CHEM 14 0772985 GLUCOSE 90 MG/DL 03/08/2012 CHEM 14 3867636 BICARB 30 MMOL/L 03/08/2012 CHEM 14 1996843 ANION GAP 6 MEQ/L 03/08/2012 CHEM 14 1699634 AST 16 U/L 11/23/2011 CHEM 14 1323302 ALT 14 IU/L 11/23/2011 CHEM 14 8342371 BUN 11 MG/DL 11/23/2011 CHEM 14 7227350 ALBUMIN 4.1 GM/DL 11/23/2011 CHEM 14 1395506 CHLORIDE 100 MMOL/L 11/23/2011 CHEM 14 0067548 BILI TOT 0.5 MG/DL 11/23/2011 CHEM 14 7442904 ALK PHOS 50 U/L 11/23/2011 CHEM 14 2525286 SODIUM 135 MMOL/L 11/23/2011 CHEM 14 8547302 CREATININE 0.57 MG/DL 11/23/2011 CHEM 14 7345709 CALCIUM 9.1 MG/DL 11/23/2011 CHEM 14 5657228 POTASSIUM 4.5 MMOL/L 11/23/2011 CHEM 14 8886980 PROT TOT 6.5 GM/DL 11/23/2011 CHEM 14 3741478 GLUCOSE 89 MG/DL 11/23/2011 CHEM 14 0987065 BICARB 28 MMOL/L 11/23/2011 CHEM 14 7285842 ANION GAP 7 MEQ/L 11/23/2011 GFR CALC 0636735 GFR AA >60 ML/MIN 11/23/2011 GFR CALC 3653452 GFR NON-AA >60 ML/MIN 11/23/2011 CBC 0515919 WBC 5.1 10e9/L 11/23/2011 CBC 4471694 RBC 4.06 10e12/L 11/23/2011 CBC 5093996 HGB 12.5 g/dL 11/23/2011 CBC 6708511 HCT DET 37.3 % 11/23/2011 CBC 5191982 MCV 91.9 fL 11/23/2011 CBC 0170582 MCH 30.8 pg 11/23/2011 CBC 7560867 MCHC 33.5 g/dL 11/23/2011 CBC 0194866 PLT 222 10e9/L 11/23/2011 CBC 0823403 MPV 10.8 fL 11/23/2011 CBC 4151181 YANIRA % 64.2 % 11/23/2011 CBC 6576176 LY % 22.3 % 11/23/2011 CBC 8871616 MON % 11.3 % 11/23/2011 CBC 2907575 EOS % 1.8 % 11/23/2011 CBC 6200617 BASO % 0.4 % 11/23/2011 CBC 5027015 RDW 13.6 % 11/23/2011 CBC 8048642 ABS YANIRA 3.27 10e9/L 11/23/2011 CBC 7905308 ABS LYMPH 1.14 10e9/L 11/23/2011 CBC 5475218 ABS MONO 0.58 10e9/L 11/23/2011 CBC 1801880 ABS EOS 0.09 10e9/L 11/23/2011 CBC 3366483 ABS BASO 0.02 10e9/L 11/23/2011 CBC 5784871 RDW-SD 44.5 fL 11/23/2011 UA 76500 Specific [place] 1.005 03/04/2011 UA 16557 PH 6 03/04/2011 UA 13575 GLUCOSE N 03/04/2011 UA 81815 Protein N 03/04/2011 UA 00032 Blood ++ 03/04/2011 UA 38969 Bilirubin N 03/04/2011 UA 86619 Ketones N 03/04/2011 UA 85776 Urobilinogen N 03/04/2011 UA 78892 Nitrite N 03/04/2011 UA 22619 Leukocytes N 03/04/2011 URINALYSIS NONAUTO W/O SCOPE 35676 Specific [place] 1.010 DateTime(Free Text in Aprima) URINALYSIS NONAUTO W/O SCOPE 94373 PH 6.5 DateTime(Free Text in Aprima) URINALYSIS NONAUTO W/O SCOPE 51999 GLUCOSE neg DateTime(Free Text in Aprima) URINALYSIS NONAUTO W/O SCOPE 76107 Protein neg DateTime(Free Text in Aprima) URINALYSIS NONAUTO W/O SCOPE 30715 Blood 3+ DateTime(Free Text in Aprima) URINALYSIS NONAUTO W/O SCOPE 00141 Bilirubin neg DateTime(Free Text in Aprima) URINALYSIS NONAUTO W/O SCOPE 65526 Ketones neg DateTime(Free Text in Aprima) URINALYSIS NONAUTO W/O SCOPE 83741 Urobilinogen neg DateTime(Free Text in Aprima) URINALYSIS NONAUTO W/O SCOPE 35037 Nitrite neg DateTime(Free Text in Aprima) URINALYSIS NONAUTO W/O SCOPE 18354 Leukocytes neg DateTime(Free Text in Aprima) URINALYSIS NONAUTO W/O SCOPE 98879 Specific [place] 1.010 DateTime(Free Text in Aprima) URINALYSIS NONAUTO W/O SCOPE 47620 PH 5 DateTime(Free Text in Aprima) URINALYSIS NONAUTO W/O SCOPE 09091 GLUCOSE neg DateTime(Free Text in Aprima) URINALYSIS NONAUTO W/O SCOPE 26810 Protein neg DateTime(Free Text in Aprima) URINALYSIS NONAUTO W/O SCOPE 02798 Blood 3+ DateTime(Free Text in Aprima) URINALYSIS NONAUTO W/O SCOPE 61661 Bilirubin neg DateTime(Free Text in Aprima) URINALYSIS NONAUTO W/O SCOPE 01091 Ketones neg DateTime(Free Text in Aprima) URINALYSIS NONAUTO W/O SCOPE 72467 Urobilinogen neg DateTime(Free Text in Aprima) URINALYSIS NONAUTO W/O SCOPE 34858 Nitrite neg DateTime(Free Text in Aprima) URINALYSIS NONAUTO W/O SCOPE 82263 Leukocytes neg DateTime(Free Text in Aprima) URINALYSIS NONAUTO W/O SCOPE 59419 Specific [place] 1.005 DateTime(Free Text in Aprima) URINALYSIS NONAUTO W/O SCOPE 09257 PH 8.5 DateTime(Free Text in Aprima) URINALYSIS NONAUTO W/O SCOPE 96317 GLUCOSE neg DateTime(Free Text in Aprima) URINALYSIS NONAUTO W/O SCOPE 04015 Protein neg DateTime(Free Text in Aprima) URINALYSIS NONAUTO W/O SCOPE 38093 Blood 1+ DateTime(Free Text in Aprima) URINALYSIS NONAUTO W/O SCOPE 99798 Bilirubin neg DateTime(Free Text in Aprima) URINALYSIS NONAUTO W/O SCOPE 83762 Ketones neg DateTime(Free Text in Aprima) URINALYSIS NONAUTO W/O SCOPE 73213 Urobilinogen neg DateTime(Free Text in Aprima) URINALYSIS NONAUTO W/O SCOPE 02983 Nitrite neg DateTime(Free Text in Aprima) URINALYSIS NONAUTO W/O SCOPE 68367 Leukocytes neg DateTime(Free Text in Aprima) URINALYSIS NONAUTO W/O SCOPE 30580 Specific [place] 1.005 DateTime(Free Text in Aprima) URINALYSIS NONAUTO W/O SCOPE 26932 PH 7 DateTime(Free Text in Aprima) URINALYSIS NONAUTO W/O SCOPE 37291 GLUCOSE neg DateTime(Free Text in Aprima) URINALYSIS NONAUTO W/O SCOPE 17968 Protein neg DateTime(Free Text in Aprima) URINALYSIS NONAUTO W/O SCOPE 19320 Blood large DateTime(Free Text in Aprima) URINALYSIS NONAUTO W/O SCOPE 59870 Bilirubin neg DateTime(Free Text in Aprima) URINALYSIS NONAUTO W/O SCOPE 23508 Ketones neg DateTime(Free Text in Aprima) URINALYSIS NONAUTO W/O SCOPE 56714 Urobilinogen 0.2 DateTime(Free Text in Aprima) URINALYSIS NONAUTO W/O SCOPE 42160 Nitrite neg DateTime(Free Text in Aprima) URINALYSIS NONAUTO W/O SCOPE 13952 Leukocytes neg DateTime(Free Text in Aprima) URINALYSIS NONAUTO W/O SCOPE 74261 Specific [place] 1.005 DateTime(Free Text in Aprima) URINALYSIS NONAUTO W/O SCOPE 46368 PH 7.5 DateTime(Free Text in Aprima) URINALYSIS NONAUTO W/O SCOPE 38408 GLUCOSE DateTime(Free Text in Aprima) URINALYSIS NONAUTO W/O SCOPE 40332 Protein trace DateTime(Free Text in Aprima) URINALYSIS NONAUTO W/O SCOPE 93418 Blood 4+ DateTime(Free Text in Aprima) URINALYSIS NONAUTO W/O SCOPE 72561 Bilirubin DateTime(Free Text in Aprima) URINALYSIS NONAUTO W/O SCOPE 51581 Ketones DateTime(Free Text in Aprima) URINALYSIS NONAUTO W/O SCOPE 46003 Urobilinogen DateTime(Free Text in Aprima) URINALYSIS NONAUTO W/O SCOPE 43143 Nitrite DateTime(Free Text in Aprima) URINALYSIS NONAUTO W/O SCOPE 09504 Leukocytes trace DateTime(Free Text in Aprima) Review [...] aphasia 10/27/2016 None Full Exam - General 1995 Integument inspection [...] FLU VACC PRSV FREE INC ANTIG CPT-4: 55194 03/27/2017 PPPS, SUBSEQ VISIT CPT- 4: G0439 01/23/2017 URINALYSIS NONAUTO W/O SCOPE CPT-4: 65310 05/17/2016 ADMIN INFLUENZA VIRUS VAC CPT-4: G0008 03/24/2016 FLU VACC PRSV FREE INC ANTIG CPT-4: 31937 03/24/2016 ADMIN PNEUMOCOCCAL VACCINE SNOMED CT: 32889100 CPT-4: G0009 05/13/2015 PNEUMOCOCCAL VACC [address]: 26713877 CPT-4: 42524 05/13/2015 Pneumococcal Polysaccharide Vaccine, 23-Valent, Ad Assigned to/Mela Bledsoe CPT-4: 94259Boyofbn 07/11/2014 ADMIN PNEUMOCOCCAL VACCINE SNOMED CT: 46768841 CPT-4: G0009 07/11/2014 URINALYSIS NONAUTO W/O SCOPE CPT-4: 85305 05/14/2014 URINALYSIS NONAUTO W/O SCOPE CPT-4: 16396 05/06/2014 URINALYSIS NONAUTO W/O SCOPE CPT-4: 52534 04/29/2014 ADMIN INFLUENZA VIRUS VAC CPT-4: G0008 03/20/2014 FLU VAC NO PRSV 4 SCOTT 3 YRS+ Assigned to/Mela Bledsoe CPT-4: 40627Frwgxnc 03/20/2014 URINALYSIS NONAUTO W/O SCOPE CPT-4: 94989 07/29/2013 URINALYSIS NONAUTO W/O SCOPE CPT-4: 52472 07/01/2013 URINALYSIS NONAUTO W/O SCOPE CPT-4: 59849 06/20/2013 ROUTINE VENIPUNCTURE CPT- 4: 01586 05/15/2013 ROUTINE VENIPUNCTURE CPT- 4: 11249 04/23/2013 ADMIN INFLUENZA VIRUS VAC CPT-4: G0008 04/23/2013 FLULAVAL VACC, 3 YRS & >, IM CPT-4: Q2036 04/23/2013 ROUTINE VENIPUNCTURE CPT- 4: 78548 12/17/2012 ROUTINE VENIPUNCTURE CPT- 4: 26639 12/14/2012 ROUTINE VENIPUNCTURE CPT- 4: 79591 12/11/2012 PRESCRIP TRANSMIT VIA ERX SY CPT-4: G8553 12/11/2012 PRESCRIP TRANSMIT VIA ERX SY CPT-4: G8553 10/30/2012 URINALYSIS NONAUTO W/O SCOPE CPT-4: 24314 09/13/2012 ADMIN INFLUENZA VIRUS VAC CPT-4: G0008 04/18/2012 FLULAVAL VACC, 3 YRS & >, IM CPT-4: Q2036 04/18/2012 URINALYSIS NONAUTO W/O SCOPE CPT-4: 39523 03/13/2012 ROUTINE VENIPUNCTURE CPT- 4: 45924 03/08/2012 URINALYSIS NONAUTO W/O SCOPE CPT-4: 76176 02/13/2012 PRESCRIP TRANSMIT VIA ERX SY CPT-4: G8553 02/13/2012 ROCEPHIN, PER 250 MG CPT- 4: J0696 11/23/2011 ROUTINE VENIPUNCTURE CPT- 4: 34595 11/23/2011 URINALYSIS NONAUTO W/O SCOPE CPT-4: 58811 11/23/2011 PRESCRIP TRANSMIT VIA ERX SY CPT-4: G8553 11/23/2011 REMOVE IMPACTED EAR WAX UNI CPT-4: 29622 10/17/2011 PRESCRIP TRANSMIT VIA ERX SY CPT-4: G8553 10/03/2011 PRESCRIP TRANSMIT VIA ERX SY CPT-4: G8553 08/08/2011 URINALYSIS NONAUTO W/O SCOPE CPT-4: 48168 03/15/2011 URINALYSIS NONAUTO W/O SCOPE CPT-4: 22968 03/04/2011 THER/PROPH/DIAG INJ SC/IM CPT-4: 69649 03/04/2011 ROCEPHIN, PER 250 MG CPT- 4: J0696 03/04/2011 Vital Signs Date Vital 10/31/2018 Blood Pressure 1: 122/66 Code: 8480-6 BMI: 20.5 Code: 55690-5 Heart Rate 1: 83 bpm Height: 5' SpO2: 99% Weight: 105 lbs 10/09/2018 Blood Pressure 1: 126/60 Code: 8480-6 BMI: 19.9 Code: 39413-5 Heart Rate 1: 66 bpm Height: 5' SpO2: 96% Weight: 102 lbs 09/12/2018 Blood Pressure 1: 156/72 Code: 8480-6 BMI: 19.9 Code: 96726-9 Heart Rate 1: 68 bpm Height: 5' Temperature: 36.6 (C) / 97.8 (F) Weight: 102 lbs 08/14/2018 Blood Pressure 1: 136/68 Code: 8480-6 BMI: 21.1 Code: 96193-0 Heart Rate 1: 92 bpm Height: 5' Weight: 108 lbs 07/26/2018 Blood Pressure 1: 128/76 Code: 8480-6 BMI: 21.1 Code: 06657-0 Heart Rate 1: 88 bpm Height: 5' Weight: 108 lbs 06/04/2018 Blood Pressure 1: 124/72 Code: 8480-6 BMI: 21.3 Code: 54672-2 Heart Rate 1: 98 bpm Height: 5' Weight: 109 lbs 01/31/2018 Blood Pressure 1: 116/68 Code: 8480-6 BMI: 21.1 Code: 69492-4 Heart Rate 1: 89 bpm Height: 5' SpO2: 98% Weight: 108 lbs 01/17/2018 Blood Pressure 1: 134/74 Code: 8480-6 BMI: 21.3 Code: 68631-6 Heart Rate 1: 74 bpm Height: 5' SpO2: 96% Waist Measure (cm): 71 cm Weight: 109 lbs 12/14/2017 Blood Pressure 1: 150/78 Code: 8480-6 BMI: 21.5 Code: 03514-3 Heart Rate 1: 77 bpm Height: 5' SpO2: 98% Temperature: 36.7 (C) / 98.1 (F) Weight: 110 lbs 12/07/2017 Blood Pressure 1: 134/70 Code: 8480-6 Heart Rate 1: 76 bpm Height: SpO2: 98% Temperature: 36.8 (C) / 98.2 (F) Weight: 11/14/2017 Blood Pressure 1: 152/84 Code: 8480-6 BMI: 21.9 Code: 68251-2 Heart Rate 1: 95 bpm Height: 5' SpO2: 93% Weight: 112 lbs 03/27/2017 Blood Pressure 1: 122/70 Code: 8480-6 BMI: 21.3 Code: 40302-2 Heart Rate 1: 75 bpm Height: 5' Weight: 109 lbs 01/23/2017 BMI: 21.5 Code: 50403-0 Height: 5' Weight: 110 lbs 01/19/2017 Blood Pressure 1: 112/60 Code: 8480-6 BMI: 21.5 Code: 49243-4 Heart Rate 1: 54 bpm Height: 5' SpO2: 97% Weight: 110 lbs 11/29/2016 Blood Pressure 1: 126/68 Code: 8480-6 Height: 5' Weight: 11/23/2016 Blood Pressure 1: 130/72 Code: 8480-6 BMI: 21.9 Code: 33325-8 Heart Rate 1: 48 bpm Height: 5' SpO2: 97% Temperature: 36.7 (C) / 98.0 (F) Weight: 112 lbs 11/21/2016 Blood Pressure 1: 134/76 Code: 8480-6 BMI: 21.9 Code: 14176-6 Heart Rate 1: 41 bpm Height: 5' SpO2: 94% Temperature: 36.9 (C) / 98.4 (F) Weight: 112 lbs 11/08/2016 Blood Pressure 1: 126/74 Code: 8480-6 Heart Rate 1: 82 bpm Height: 5' SpO2: 94% Weight: 11/02/2016 Blood Pressure 1: 112/66 Code: 8480-6 Heart Rate 1: 72 bpm Height: 5' SpO2: 95% Weight: 10/27/2016 Blood Pressure 1: 130/64 Code: 8480-6 BMI: 21.7 Code: 48945-6 Heart Rate 1: 81 bpm Height: 5' SpO2: 96% Weight: 111 lbs 08/31/2016 Blood Pressure 1: 132/72 Code: 8480-6 BMI: 22.5 Code: 02932-2 Heart Rate 1: 66 bpm Height: 5' Weight: 115 lbs 07/27/2016 Blood Pressure 1: 166/74 Code: 8480-6 BMI: 23.2 Code: 34482-8 Heart Rate 1: 48 bpm Height: 5' SpO2: 90% Temperature: 36.8 (C) / 98.2 (F) Weight: 119 lbs 06/23/2016 Blood Pressure 1: 128/70 Code: 8480-6 BMI: 22.3 Code: 83916-7 Heart Rate 1: 75 bpm Height: 5' SpO2: 97% Weight: 114 lbs 06/09/2016 BMI: 22.7 Code: 50883-2 Heart Rate 1: 73 bpm Height: 5' SpO2: 97% Weight: 116 lbs 05/25/2016 Blood Pressure 1: 138/62 Code: 8480-6 BMI: 22.8 Code: 39648-3 Heart Rate 1: 76 bpm Height: 5' Weight: 117 lbs 05/17/2016 Blood Pressure 1: 116/70 Code: 8480-6 BMI: 22.8 Code: 72887-8 Heart Rate 1: 74 bpm Height: 5' SpO2: 94% Weight: 117 lbs 03/24/2016 Blood Pressure 1: 154/78 Code: 8480-6 BMI: 22.5 Code: 57292-7 Heart Rate 1: 78 bpm Height: 5' SpO2: 97% Weight: 115 lbs 02/02/2016 Blood Pressure 1: 132/70 Code: 8480-6 BMI: 22.3 Code: 27711-0 Heart Rate 1: 74 bpm Height: 5' SpO2: 94% Weight: 114 lbs 2016 Blood Pressure 1: 120/62 Code: 8480-6 BMI: 22.0 Code: 17170-0 Heart Rate 1: 68 bpm Height: 5' Weight: 112 lbs 8 oz 12/21/2015 Blood Pressure 1: 122/82 Code: 8480-6 BMI: 21.9 Code: 16995-7 Heart Rate 1: 83 bpm Height: 5' SpO2: 93% Temperature: 37.1 (C) / 98.7 (F) Weight: 112 lbs 11/03/2015 Blood Pressure 1: 122/72 Code: 8480-6 BMI: 22.4 Code: 83262-3 Heart Rate 1: 62 bpm Height: 5' Weight: 114 lbs 8 oz 10/19/2015 Blood Pressure 1: 138/62 Code: 8480-6 BMI: 21.1 Code: 61733-7 Heart Rate 1: 79 bpm Height: 5' Weight: 108 lbs 10/13/2015 Blood Pressure 1: 120/62 Code: 8480-6 BMI: 21.0 Code: 66223-8 Heart Rate 1: 76 bpm Height: 5' SpO2: 98% Weight: 108 lbs 09/29/2015 Blood Pressure 1: 130/70 Code: 8480-6 BMI: 20.2 Code: 25569-9 Heart Rate 1: 72 bpm Height: 5' Weight: 104 lbs 09/15/2015 Blood Pressure 1: 128/78 Code: 8480-6 BMI: 19.9 Code: 91150-7 Heart Rate 1: 72 bpm Height: 5' Weight: 102 lbs 8 oz 09/01/2015 Blood Pressure 1: 128/68 Code: 8480-6 BMI: 19.8 Code: 90729-0 Height: 5' Weight: 102 lbs 05/26/2015 Blood Pressure 1: 140/68 Code: 8480-6 BMI: 19.0 Code: 54065-1 Heart Rate 1: 70 bpm Height: 5' Weight: 98 lbs 05/21/2015 Blood Pressure 1: 140/78 Code: 8480-6 BMI: 19.2 Code: 43743-6 Heart Rate 1: 85 bpm Height: 5' SpO2: 95% Weight: 99 lbs 05/07/2015 Blood Pressure 1: 140/82 Code: 8480-6 BMI: 19.0 Code: 52291-0 Heart Rate 1: 76 bpm Height: 5' Weight: 98 lbs 03/23/2015 Blood Pressure 1: 142/60 Code: 8480-6 BMI: 18.6 Code: 57716-7 Heart Rate 1: 52 bpm Height: 5' Weight: 96 lbs 03/09/2015 Blood Pressure 1: 138/74 Code: 8480-6 BMI: 18.8 Code: 23181-7 Heart Rate 1: 60 bpm Height: 5' Weight: 97 lbs 10/30/2014 Blood Pressure 1: 112/82 Code: 8480-6 BMI: 19.0 Code: 16947-1 Heart Rate 1: 64 bpm Height: 5' Weight: 98 lbs 07/11/2014 Blood Pressure 1: 146/70 Code: 8480-6 BMI: 18.8 Code: 35813-7 Heart Rate 1: 68 bpm Height: 5' Weight: 97 lbs 05/20/2014 Blood Pressure 1: 142/76 Code: 8480-6 BMI: 18.6 Code: 24127-1 Heart Rate 1: 78 bpm Height: 5' Weight: 96 lbs 04/29/2014 Blood Pressure 1: 138/62 Code: 8480-6 BMI: 18.3 Code: 78201-9 Heart Rate 1: 80 bpm Height: 5' Weight: 94 lbs 8 oz 03/20/2014 Blood Pressure 1: 142/68 Code: 8480-6 BMI: 18.6 Code: 57335-9 Heart Rate 1: 96 bpm Height: 5' Weight: 96 lbs 03/05/2014 Blood Pressure 1: 122/72 Code: 8480-6 BMI: 18.8 Code: 29378-2 Heart Rate 1: 82 bpm Height: 5' SpO2: 97% Weight: 97 lbs 01/29/2014 Blood Pressure 1: 124/78 Code: 8480-6 BMI: 18.8 Code: 76467-5 Heart Rate 1: 60 bpm Height: 5' Weight: 97 lbs 01/14/2014 Blood Pressure 1: 120/58 Code: 8480-6 BMI: 19.2 Code: 96118-7 Heart Rate 1: 56 bpm Height: 5' Temperature: 36.9 (C) / 98.4 (F) Weight: 99 lbs 12/25/2013 Blood Pressure 1: 118/78 Code: 8480-6 BMI: 19.2 Code: 23218-6 Heart Rate 1: 68 bpm Height: 5' Weight: 99 lbs 11/27/2013 Blood Pressure 1: 102/68 Code: 8480-6 BMI: 19.4 Code: 01936-1 Heart Rate 1: 56 bpm Height: 5' Weight: 100 lbs 09/12/2013 Blood Pressure 1: 142/62 Code: 8480-6 BMI: 19.7 Code: 45723-3 Heart Rate 1: 72 bpm Height: 5'1" Weight: 104 lbs 08/15/2013 Blood Pressure 1: 152/92 Code: 8480-6 Heart Rate 1: 96 bpm Weight: 102 lbs 08/01/2013 Blood Pressure 1: 122/68 Code: 8480-6 BMI: 19.1 Code: 71694-2 Heart Rate 1: 68 bpm Height: 5'1" Weight: 101 lbs 07/01/2013 Blood Pressure 1: 130/72 Code: 8480-6 BMI: 19.5 Code: 66408-4 Heart Rate 1: 80 bpm Height: 5'1" Temperature: 36.1 (C) / 97.0 (F) Weight: 103 lbs 05/29/2013 Blood Pressure 1: 126/72 Code: 8480-6 BMI: 19.3 Code: 23271-5 Heart Rate 1: 80 bpm Height: 5'1" Weight: 102 lbs 05/15/2013 Blood Pressure 1: 156/74 Code: 8480-6 BMI: 19.3 Code: 50139-2 Heart Rate 1: 88 bpm Height: 5'1" Weight: 102 lbs 04/23/2013 Blood Pressure 1: 140/82 Code: 8480-6 BMI: 19.3 Code: 80076-7 Heart Rate 1: 72 bpm Height: 5'1" Weight: 102 lbs 03/21/2013 Blood Pressure 1: 142/74 Code: 8480-6 Heart Rate 1: 92 bpm Weight: 103 lbs 01/16/2013 Blood Pressure 1: 120/56 Code: 8480-6 BMI: 20.0 Code: 79592-4 Heart Rate 1: 72 bpm Height: 5'1" Weight: 106 lbs 12/19/2012 Blood Pressure 1: 118/66 Code: 8480-6 Heart Rate 1: 84 bpm Weight: 12/10/2012 Blood Pressure 1: 132/62 Code: 8480-6 Heart Rate 1: 64 bpm Weight: 103 lbs 10/30/2012 Blood Pressure 1: 122/66 Code: 8480-6 BMI: 19.9 Code: 99524-7 Heart Rate 1: 61 bpm Height: 5'1" [...] 1: 118/72 Code: 8480-6 BMI: 21.0 Code: 79540-0 Heart Rate 1: 66 bpm Height: 5'1" Respiratory Rate: 16 bpm Weight: 111 lbs 2012 Blood Pressure 1: 122/62 Code: 8480-6 Heart Rate 1: 68 bpm Weight: 110 lbs 12/01/2011 Blood Pressure 1: 150/60 Code: 8480-6 BMI: 20.8 Code: 03366-2 Heart Rate 1: 60 bpm Height: 5'1" Respiratory Rate: 16 bpm Weight: 110 lbs 11/23/2011 Blood Pressure 1: 170/68 Code: 8480-6 BMI: 21.1 Code: 31766-2 Heart Rate 1: 64 bpm Height: 5'1" Temperature: 36.3 (C) / 97.3 (F) Weight: 111 lbs 8 oz 10/17/2011 Blood Pressure 1: 148/62 Code: 8480-6 Heart Rate 1: 74 bpm 10/03/2011 Blood Pressure 1: 102/48 Code: 8480-6 BMI: 21.4 Code: 81571-1 Heart Rate 1: 76 bpm Height: 5'1" Respiratory Rate: 16 bpm Weight: 113 lbs 08/08/2011 Blood Pressure 1: 128/60 Code: 8480-6 Heart Rate 1: 80 bpm Respiratory Rate: 16 bpm Weight: 113 lbs 05/09/2011 Blood Pressure 1: 130/62 Code: 8480-6 BMI: 20.7 Code: 41777-7 Heart Rate 1: 64 bpm Height: 5'1" Respiratory Rate: 16 bpm Weight: 109 lbs 8 oz 03/29/2011 Blood Pressure 1: 120/62 Code: 8480-6 BMI: 20.2 Code: 68281-5 Heart Rate 1: 66 bpm Height: 5'1" Respiratory Rate: 12 bpm Weight: 107 lbs 03/15/2011 Blood Pressure 1: 120/64 Code: 8480-6 BMI: 19.8 Code: 94913-2 Heart Rate 1: 76 bpm Height: 5'1" [...] contacts 03/20/2014 sat next to neighbor in [place] who had tonsillitis sore throat Pertinent Findings [...] Directive data Encounters Encounter Performer Location Codes ([id number]) 64186 EST. 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 PATIENT, LEVEL III Diagnosis: Raynaud's syndrome without gangrene[ICD10: I73.00] Diagnosis: Pain in left hand[ICD10: M79.642] Diagnosis: Pain in right hand[ICD10: M79.641] Karma Bahena MD [facility] CPT- 4: 12447 10/09/2018 90922 EST. PATIENT, LEVEL III Diagnosis: Cough[ICD10: R05] Diagnosis: Acute laryngopharyngitis[ICD10: J06.0] Diagnosis: Other allergic rhinitis[ICD10: J30.89] Diagnosis: Raynaud's syndrome without gangrene[ICD10: I73.00] Katharine Bahena MD, [facility] CPT-4: 69586 09/12/2018 ([id number]) 35312 EST. PATIENT, LEVEL IV Diagnosis: Raynaud's syndrome without gangrene[ICD10: I73.00] Diagnosis: Pain in right toe(s)[ICD10: M79.674] Diagnosis: Chronic atrial fibrillation[ICD10: I48.2] Karma Bahena MD [facility] CPT-4: 87111 08/14/2018 ([id number]) 80347 EST. PATIENT, LEVEL IV Diagnosis: Chronic atrial fibrillation[ICD10: I48.2] Diagnosis: Sebaceous cyst[ICD10: L72.3] Diagnosis: Raynaud's syndrome without gangrene[ICD10: I73.00] Karma Bahena MD [facility] CPT-4: 16826 07/26/2018 ([id number]) 91762 EST. PATIENT, LEVEL IV Diagnosis: Essential (primary) hypertension[ICD10: I10] Diagnosis: Atrophy of thyroid (acquired)[ICD10: E03.4] Diagnosis: Gastro-esophageal reflux disease without esophagitis[ICD10: K21.9] Karma Bahena MD, [facility] CPT-4: 85113 06/04/2018 ([id number]) 90504 EST. PATIENT, LEVEL IV Diagnosis: Essential (primary) hypertension[ICD10: I10] Diagnosis: Atrophy of thyroid (acquired)[ICD10: E03.4] Diagnosis: Other manager terminal (current) drug therapy[ICD10: Z79.899] Karma Bahena MD, [facility] CPT-4: 35715 01/31/2018 ([id number]) 43985 EST. PATIENT, LEVEL IV Diagnosis: Essential (primary) hypertension[ICD10: I10] Diagnosis: Chronic atrial fibrillation[ICD10: I48.2] Diagnosis: Allergic rhinitis due to pollen[ICD10: J30.1] Diagnosis: Cough[ICD10: R05] Karma Bahena MD, [facility] CPT-4: 26928 12/14/2017 48404 EST. PATIENT, LEVEL IV Diagnosis: Other allergic rhinitis[ICD10: J30.89] Katharine Bahena MD, [facility] CPT- 4: 15288 12/07/2017 ([id number]) 12414 EST. PATIENT, LEVEL IV Diagnosis: Essential (primary) hypertension[ICD10: I10] Diagnosis: Chronic atrial fibrillation[ICD10: I48.2] Diagnosis: Atrophy of thyroid (acquired)[ICD10: E03.4] Karma Bahena MD, [facility] CPT-4: 76568 11/14/2017 ([id number]) 71448 EST. PATIENT, LEVEL IV Diagnosis: Essential (primary) hypertension[ICD10: I10] Diagnosis: Localized edema[ICD10: R60.0] Diagnosis: Encounter for immunization[ICD10: Z23] Diagnosis: Age-related osteoporosis without current pathological fracture[ICD10: M81.0] Karma Bahena MD, [facility] CPT-4: 18647 03/27/2017 ([id number]) 68236 EST. PATIENT, LEVEL IV Diagnosis: Essential (primary) hypertension[ICD10: I10] Diagnosis: Chronic atrial fibrillation[ICD10: I48.2] Diagnosis: Dysphonia[ICD10: R49.0] Karma Bahena MD, [facility] CPT-4: 32397 01/19/2017 ([id number]) Miscellaneous no charge Diagnosis: Cough[ICD10: R05] Diagnosis: Acute upper respiratory infection, unspecified[ICD10: J06.9] Laura Bahena MD, [facility] CPT-4: 66826 11/29/2016 12750 EST. PATIENT, LEVEL III Diagnosis: Cough[ICD10: R05] Diagnosis: Acute laryngopharyngitis[ICD10: J06.0] Katharine Bahena MD, [facility] CPT- 4: 35882 11/23/2016 ([id number]) 81086 EST. PATIENT, LEVEL III Diagnosis: Acute laryngopharyngitis[ICD10: J06.0] Laura Bahena MD, [facility] CPT-4: 75166 11/21/2016 ([id number]) Miscellaneous no charge Diagnosis: Laceration without foreign body of right forearm, subsequent encounter[ICD10: S51.811D] Karma Bahena MD, [facility] CPT-4: 13090 11/17/2016 ([id number]) Miscellaneous no charge Diagnosis: Laceration without foreign body of right forearm, subsequent encounter[ICD10: S51.811D] Karma Bahena MD, [facility] CPT-4: 62302 11/14/2016 ([id number]) Miscellaneous no charge Diagnosis: Laceration without foreign body of right forearm, subsequent encounter[ICD10: S51.811D] Karma Bahena MD, [facility] CPT-4: 06497 11/11/2016 ([id number]) Miscellaneous no charge Diagnosis: Laceration without foreign body of right forearm, subsequent encounter[ICD10: S51.811D] Karma Bahena MD, [facility] CPT-4: 55177 11/10/2016 ([id number]) 97154 EST. PATIENT, LEVEL II Diagnosis: Laceration without foreign body of right forearm, subsequent encounter[ICD10: S51.811D] Karma Bahena MD, [facility] CPT-4: 00977 11/08/2016 ([id number]) 39056 EST. PATIENT, LEVEL IV Diagnosis: Atrophy of thyroid (acquired)[ICD10: E03.4] Diagnosis: Chronic atrial fibrillation[ICD10: I48.2] Diagnosis: Laceration without foreign body of right forearm, subsequent encounter[ICD10: S51.811D] Karma Bahena MD, [facility] CPT-4: 67889 11/02/2016 ([id number]) 50662 EST. PATIENT, LEVEL III Diagnosis: Laceration without foreign body of right forearm, initial encounter[ICD10: S51.811A] Laura Bahena MD, [facility] CPT-4: 95774 10/27/2016 ([id number]) 10468 EST. PATIENT, LEVEL IV Diagnosis: Essential (primary) hypertension[ICD10: I10] Diagnosis: Chronic atrial fibrillation[ICD10: I48.2] Karma Bahena MD [facility] CPT-4: 79242 08/31/2016 ([id number]) 12003 EST. PATIENT, LEVEL IV Diagnosis: Localized edema[ICD10: R60.0] Diagnosis: Essential (primary) hypertension[ICD10: I10] Diagnosis: Abdominal distension (gaseous)[ICD10: R14.0] Karma Bahena MD, [facility] CPT-4: 28405 07/27/2016 ([id number]) 04015 EST. PATIENT, LEVEL IV Diagnosis: Essential (primary) hypertension[ICD10: I10] Diagnosis: Chronic atrial fibrillation[ICD10: I48.2] Diagnosis: Localized edema[ICD10: R60.0] Karma Bahena MD, [facility] CPT-4: 71213 06/23/2016 ([id number]) 11453 EST. PATIENT, LEVEL III Diagnosis: Localized edema[ICD10: R60.0] Karma Bahena MD, [facility] CPT-4: 84462 06/09/2016 ([id number]) 16136 EST. PATIENT, LEVEL III Diagnosis: Irritable bowel syndrome without diarrhea[ICD10: K58.9] Diagnosis: Pruritus ani[ICD10: L29.0] Karma Bahena MD, [facility] CPT-4: 53858 05/25/2016 ([id number]) 23588 EST. PATIENT, LEVEL III Diagnosis: Abdominal distension (gaseous)[ICD10: R14.0] Diagnosis: Encounter for screening mammogram for malignant neoplasm of breast[ICD10: Z12.31] Karma Bahena MD, [facility] CPT-4: 82448 05/17/2016 ([id number]) 15559 EST. PATIENT, LEVEL IV Diagnosis: Essential (primary) hypertension[ICD10: I10] Diagnosis: First degree hemorrhoids[ICD10: K64.0] Diagnosis: Encounter for immunization[ICD10: Z23] Karma Bahena MD, [facility] CPT-4: 10108 03/24/2016 ([id number]) 43006 EST. PATIENT, LEVEL III Diagnosis: Epidermal cyst[ICD10: L72.0] Diagnosis: Essential (primary) hypertension[ICD10: I10] Diagnosis: Chronic atrial fibrillation[ICD10: I48.2] Diagnosis: Other fdc (current) drug therapy[ICD10: Z79.899] Karma Bahena MD [facility] CPT-4: 42572 02/02/2016 ([id number]) 58740 EST. PATIENT, LEVEL III Diagnosis: Acute anal fissure[ICD10: K60.0] Karma Bahena MD [facility] CPT-4: 66707 2016 ([id number]) 99606 EST. PATIENT, LEVEL III Diagnosis: Allergic rhinitis due to pollen[ICD10: J30.1] Diagnosis: Acute upper respiratory infection, unspecified[ICD10: J06.9] Laura Bahena MD, [facility] CPT-4: 70440 12/21/2015 ([id number]) 98278 EST. PATIENT, LEVEL III Diagnosis: Essential (primary) hypertension[ICD10: I10] Diagnosis: Chronic atrial fibrillation[ICD10: I48.2] Karma Bahena MD, [facility] CPT-4: 73742 11/03/2015 ([id number]) Miscellaneous no charge Diagnosis: Impacted cerumen, right ear[ICD10: H61.21] Katharine Bahena MD, [facility] CPT-4: 51874 10/19/2015 15365 EST. PATIENT, LEVEL IV Diagnosis: Impacted cerumen, right ear[ICD10: H61.21] Diagnosis: Other allergic rhinitis[ICD10: J30.89] Katharine Bahena MD, [facility] CPT- 4: 63208 10/13/2015 ([id number]) 33125 EST. PATIENT, LEVEL IV Diagnosis: Essential (primary) hypertension[ICD10: I10] Diagnosis: Chronic atrial fibrillation[ICD10: I48.2] Diagnosis: Urge incontinence[ICD10: N39.41] Diagnosis: Age-related osteoporosis without current pathological fracture[ICD10: M81.0] Karma Bahena MD, [facility] CPT-4: 54027 09/29/2015 ([id number]) 34929 EST. PATIENT, LEVEL IV Diagnosis: Essential (primary) hypertension[ICD10: I10] Diagnosis: Chronic atrial fibrillation[ICD10: I48.2] Diagnosis: Irritable bowel syndrome without diarrhea[ICD10: K58.9] Diagnosis: Unspecified hemorrhoids[ICD10: K64.9] Karma Bahena MD, [facility] CPT-4: 77536 09/15/2015 ([id number]) 11970 EST. 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 PATIENT, LEVEL III Diagnosis: Hematuria, unspecified[ICD10: R31.9] Diagnosis: Other urethritis[ICD10: N34.2] Diagnosis: Other specified noninflammatory disorders of vagina[ICD10: N89.8] Karma Bahena MD, [facility] CPT-4: 22015 05/26/2015 35760 EST. PATIENT, LEVEL IV Diagnosis: Gout, unspecified[ICD10: M10.9] Karma Bahena MD, [facility] CPT-4: 56427 05/21/2015 ([id number]) 84890 EST. PATIENT, LEVEL IV Diagnosis: Chronic atrial fibrillation[ICD10: I48.2] Diagnosis: Irritable bowel syndrome without diarrhea[ICD10: K58.9] Diagnosis: Cystocele, unspecified[ICD10: N81.10] Diagnosis: Urge incontinence[ICD10: N39.41] Diagnosis: Fecal smearing[ICD10: R15.1] Diagnosis: Hypothyroidism, unspecified[ICD10: E03.9] Karma Bahena MD, [facility] CPT-4: 69734 05/07/2015 ([id number]) 97928 EST. PATIENT, LEVEL III Diagnosis: Atrial fibrillation[ICD9: 427.31] Diagnosis: Bloating[ICD9: 787.3] Krama Bahena MD [facility] CPT-4: 16068 03/23/2015 ([id number]) 33357 EST. PATIENT, LEVEL IV Diagnosis: Abdominal pain[ICD9: 789.00] Diagnosis: Atrial fibrillation[ICD9: 427.31] Diagnosis: ENCNTR LONG-ANTICOAG USE[ICD9: V58.61] Karma Bahena MD [facility] CPT-4: 98954 03/09/2015 ([id number]) 57741 EST. PATIENT, LEVEL IV Diagnosis: HEMATURIA NOS[ICD9: 599.70] Diagnosis: Atrial fibrillation[ICD9: 427.31] Diagnosis: HYPOTHYROIDISM[ICD9: 244.9] Karma Bahena MD [facility] CPT-4: 34090 10/30/2014 ([id number]) 52804 EST. PATIENT, LEVEL IV Diagnosis: Atrial fibrillation[ICD9: 427.31] Diagnosis: ALLERGIC RHINITIS[ICD9: 477.9] Diagnosis: Need for pneumococcal vaccine[ICD9: V03.82] Diagnosis: Osteoarthritis[ICD9: 715.90] Diagnosis: Osteoporosis[ICD9: 733.00] Karma Bahena MD [facility] CPT-4: 81316 07/11/2014 ([id number]) 68279 EST. PATIENT, LEVEL III Diagnosis: Urge incontinence[ICD9: 788.31] Diagnosis: Dysuria[ICD9: 788.1] Karma Bahena MD [facility] CPT-4: 29562 05/20/2014 ([id number]) 14717 EST. PATIENT, LEVEL IV Diagnosis: Atrial fibrillation[ICD9: 427.31] Diagnosis: Hematuria[ICD9: 599.70] Diagnosis: Dysuria[ICD9: 788.1] Diagnosis: ESSENTIAL HYPERTENSION[ICD9: 401.9] Karma Bahena MD [facility] CPT- 4: 22325 04/29/2014 ([id number]) 09639 EST. PATIENT, LEVEL IV Diagnosis: ESSENTIAL HYPERTENSION[ICD9: 401.9] Diagnosis: ALLERGIC RHINITIS[ICD9: 477.9] Karma Bahena MD [facility] CPT-4: 45565 03/20/2014 ([id number]) 33161 EST. PATIENT, LEVEL IV Diagnosis: ESSENTIAL HYPERTENSION[ICD9: 401.9] Diagnosis: ATRIAL FIBRILLATION[ICD9: 427.31] Diagnosis: Irritable bowel[ICD9: 564.1] Karma Bahena MD, [facility] CPT-4: 01857 03/05/2014 ([id number]) 38713 EST. PATIENT, LEVEL IV Diagnosis: Esophageal reflux[ICD9: 530.81] Diagnosis: DIARRHEA[ICD9: 787.91] Diagnosis: ABDOM PAIN NOS SITE[ICD9: 789.00] Karma Bahena MD, [facility] CPT- 4: 26457 01/29/2014 ([id number]) 83348 EST. PATIENT, LEVEL III Diagnosis: Irritable bowel[ICD9: 564.1] Diagnosis: DIARRHEA[ICD9: 787.91] Laura Bahena MD, [facility] CPT-4: 21406 01/14/2014 ([id number]) 48458 EST. PATIENT, LEVEL IV Diagnosis: ESSENTIAL HYPERTENSION[ICD9: 401.9] Diagnosis: ATRIAL FIBRILLATION[ICD9: 427.31] Diagnosis: URGE INCONTINENCE[ICD9: 788.31] Diagnosis: MALAISE AND FATIGUE[ICD9: 780.79] Diagnosis: Dyspnea[ICD9: 786.09] Karma Bahena MD, [facility] CPT-4: 92513 12/25/2013 ([id number]) 74559 EST. PATIENT, LEVEL IV Diagnosis: ESSENTIAL HYPERTENSION[SNOMED: 54533048] Diagnosis: ATRIAL FIBRILLATION[ICD9: 427.31] Diagnosis: Abdominal pain[ICD9: 789.00] Diagnosis: ESOPHAGEAL REFLUX[ICD9: 530.81] Karma Bahena MD, [facility] CPT-4: 30344 11/27/2013 ([id number]) 43066 EST. PATIENT, LEVEL IV Diagnosis: ESSENTIAL HYPERTENSION[SNOMED: 66320112] Diagnosis: ATRIAL FIBRILLATION[ICD9: 427.31] Diagnosis: Chronic osteoarthritis[ICD9: 715.90] Karma Bahena MD, [facility] CPT- 4: 24497 09/12/2013 ([id number]) 53080 EST. PATIENT, LEVEL III Diagnosis: ESSENTIAL HYPERTENSION[SNOMED: 97471304] Diagnosis: Bruising[ICD9: 924.9] Diagnosis: ENCNTR LONG-RX USE NEC[ICD9: V58.69] Karma Bahena MD [facility] CPT- 4: 31565 08/15/2013 ([id number]) 22834 EST. PATIENT, LEVEL IV Diagnosis: ESSENTIAL HYPERTENSION[SNOMED: 08393828] Diagnosis: Hematuria[ICD9: 599.70] Diagnosis: Dysuria[ICD9: 788.1] Karma Bahena MD [facility] CPT-4: 73433 08/01/2013 ([id number]) 20628 EST. PATIENT, LEVEL III Diagnosis: UTI[ICD9: 599.0] Diagnosis: Hematuria[ICD9: 599.70] Laura Bahena MD [facility] CPT-4: 34355 07/01/2013 ([id number]) 70411 EST. PATIENT, LEVEL III Diagnosis: ATRIAL FIBRILLATION[ICD9: 427.31] Diagnosis: ESSENTIAL HYPERTENSION[SNOMED: 03024563] Karma Bahena MD [facility] CPT-4: 01869 05/29/2013 ([id number]) 18433 EST. PATIENT, LEVEL IV Diagnosis: Atrial fibrillation[ICD9: 427.31] Diagnosis: Encounter for monitoring digoxin therapy[ICD9: V58.83] Diagnosis: ESSENTIAL HYPERTENSION[SNOMED: 77654181] Karma Bahena MD [facility] CPT-4: 05338 05/15/2013 ([id number]) 30293 EST. PATIENT, LEVEL IV Diagnosis: ESSENTIAL HYPERTENSION[SNOMED: 92854992] Diagnosis: ATRIAL FIBRILLATION[ICD9: 427.31] Diagnosis: PALPITATIONS[ICD9: 785.1] Diagnosis: Dizziness and giddiness[ICD9: 780.4] Karma Bahena MD, [facility] CPT- 4: 95251 04/23/2013 ([id number]) 90882 EST. PATIENT, LEVEL III Diagnosis: OTHER CONSTIPATION[ICD9: 564.09] Diagnosis: ABDOM PAIN NOS SITE[ICD9: 789.00] Laura Bahena MD [facility] CPT- 4: 54343 03/21/2013 ([id number]) 30872 EST. PATIENT, LEVEL IV Diagnosis: ESSENTIAL HYPERTENSION[SNOMED: 06061509] Diagnosis: Atrial fibrillation[ICD9: 427.31] Karma Bahena MD, [facility] CPT- 4: 01714 01/16/2013 ([id number]) Miscellaneous no charge Diagnosis: CELLULITIS OF HAND[ICD9: 682.4] Karma Bahena MD, [facility] CPT-4: 00025 12/19/2012 ([id number]) Miscellaneous no charge Diagnosis: ENCOUNTER FOR THERAPEUTIC DRUG MONITORING[ICD9: V58.83] Diagnosis: CELLULITIS OF HAND[ICD9: 682.4] Karma Bahena MD, [facility] CPT-4: 49542 12/14/2012 Miscellaneous no charge Diagnosis: CELLULITIS OF HAND[ICD9: 682.4] Karma Bahena MD, [facility] CPT-4: 69800 12/12/2012 53196 EST. PATIENT, LEVEL II Diagnosis: CELLULITIS OF HAND[ICD9: 682.4] Diagnosis: ENCNTR LONG-RX USE NEC[ICD9: V58.69] Diagnosis: LONG-TERM USE ANTICOAGUL[ICD9: V58.61] Karma Bahena MD, [facility] CPT-4: 80292 12/11/2012 ([id number]) 64495 EST. PATIENT, LEVEL III Diagnosis: CELLULITIS OF HAND[ICD9: 682.4] Karma Bahena MD [facility] CPT-4: 69274 12/10/2012 ([id number]) 92752 EST. PATIENT, LEVEL IV Diagnosis: Elevated digoxin level[ICD9: 796.0] Diagnosis: ATRIAL FIBRILLATION[ICD9: 427.31] Diagnosis: Inflammatory arthritis[ICD9: 714.9] Karma Bahena MD, [facility] CPT- 4: 26584 10/30/2012 ([id number]) 14900 EST. PATIENT, LEVEL IV Diagnosis: Atrial fibrillation[ICD9: 427.31] Diagnosis: Anticoagulant long-term use[ICD9: V58.61] Diagnosis: ESSENTIAL HYPERTENSION[SNOMED: 68867260] Karma Bahena MD, [facility] CPT-4: 82502 08/08/2012 ([id number]) 13634 EST. PATIENT, LEVEL IV Diagnosis: ABDOM PAIN NOS SITE[ICD9: 789.00] Diagnosis: Constipation - functional[ICD9: 564.09] Diagnosis: EDEMA[ICD9: 782.3] Diagnosis: ATRIAL FIBRILLATION[ICD9: 427.31] Karma Bahena MD, [facility] CPT- 4: 85049 07/11/2012 ([id number]) 05980 EST. PATIENT, LEVEL III Diagnosis: Cystocele[ICD9: 618.01] Diagnosis: Rectocele[ICD9: 618.04] Karma Bahena MD, [facility] CPT-4: 70442 05/08/2012 ([id number]) 20684 EST. 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 PATIENT, LEVEL IV Diagnosis: ATRIAL FIBRILLATION[ICD9: 427.31] Diagnosis: URGE INCONTINENCE[ICD9: 788.31] Diagnosis: MALAISE AND FATIGUE[ICD9: 780.79] Diagnosis: Dyspnea[ICD9: 786.09] [facility] CPT-4: 60680 02/20/2012 [id number] EST. PATIENT, LEVEL IV Diagnosis: Hematuria[ICD9: 599.70] Diagnosis: Vaginal yeast infection[ICD9: 112.1] Diagnosis: ATRIAL FIBRILLATION[ICD9: 427.31] [facility] CPT- 4: 83170 02/13/2012 ([id number]) 21438 EST. PATIENT, LEVEL IV Diagnosis: Atrial fibrillation[ICD9: 427.31] Diagnosis: Anticoagulation goal of INR 2 to 3[ICD9: V58.83] Diagnosis: Urinary incontinence, urge[ICD9: 788.31] Diagnosis: ESSENTIAL HYPERTENSION[SNOMED: 23679846] Karma Bahena MD [facility] CPT-4: 06246 02/01/2012 ([id number]) 25611 EST. PATIENT, LEVEL IV Diagnosis: Atrial fibrillation[ICD9: 427.31] Diagnosis: Anticoagulant long-term use[ICD9: V58.61] Diagnosis: ESSENTIAL HYPERTENSION[SNOMED: 86562797] Karma Bahena MD [facility] CPT-4: 11849 2012 [id number] EST. PATIENT, LEVEL IV Diagnosis: UTI[ICD9: 599.0] Diagnosis: ESSENTIAL HYPERTENSION[SNOMED: 52084368] Diagnosis: MALAISE AND FATIGUE[ICD9: 780.79] Diagnosis: Esophageal reflux[ICD9: 530.81] PARVEEN Freitas MD CPT-4: 08396 12/01/2011 ([id number]) 48228 EST. PATIENT, LEVEL IV Diagnosis: UTI (urinary tract infection)[ICD9: 599.0] Diagnosis: ESSENTIAL HYPERTENSION[SNOMED: 48168627] Diagnosis: URGE INCONTINENCE[ICD9: 788.31] Karma Bahena MD [facility] CPT-4: 79257 11/23/2011 ([id number]) 52392 EST. PATIENT, LEVEL IV Diagnosis: ESSENTIAL HYPERTENSION[SNOMED: 03423805] Diagnosis: IMPACTED CERUMEN[ICD9: 380.4] Diagnosis: MALAISE AND FATIGUE[ICD9: 780.79] Diagnosis: EDEMA[ICD9: 782.3] Karma Bahena MD [facility] CPT-4: 85698 10/03/2011 22073 EST. PATIENT, LEVEL IV Diagnosis: ESSENTIAL HYPERTENSION[SNOMED: 25379106] Diagnosis: Generalized osteoarthritis[ICD9: 715.09] Diagnosis: OSTEOPOROSIS[ICD9: 733.00] Karma Bahena MD [facility] CPT-4: 98673 08/08/2011 30392 EST. PATIENT, LEVEL IV Diagnosis: Muscle cramp[ICD9: 729.82] Diagnosis: Torticollis[ICD9: 723.5] Diagnosis: Rash[ICD9: 782.1] [facility] CPT-4: 04828 05/09/2011 85083 EST. PATIENT, LEVEL IV Diagnosis: Leg cramps, sleep related[ICD9: 327.52] Diagnosis: Underweight[ICD9: 783.22] [facility] CPT-4: 40832 03/29/2011 22594 EST. PATIENT, LEVEL IV Diagnosis: UTI[ICD9: 599.0] Diagnosis: Urge incontinence[ICD9: 788.31] Diagnosis: Loss of weight[ICD9: 783.21] Diagnosis: Palpitations[ICD9: 785.1] Diagnosis: Peripheral neuropathy, idiopathic[ICD9: 356.9] Karma Bahena MD, [facility] CPT-4: 06574 03/15/2011 Plan of Care Planned Activity Notes Codes Status Date Visit Plan: Hypothyroidism - pt with chronic [...] vaginal atrophy - rx for imvexxy 10/31/2018 Patient Education: Patient Medication Summary Completed 10/31/2018 Visit Plan: Hand pain with arthritis - Raynaud syndrome - discussed with pt - RX for Voltaren gel sent to the pharmacy. continue with amlodipine. 10/09/2018 Appointment: Karma Bahena WPtel: [address] [place], [place] [address] (15 min) Moderate 10/09/2018 Patient Education: Patient Medication Summary Completed 10/09/2018 Appointment: [phone] (15 min) Moderate 10/01/2018 Visit Plan: URI [...] Appointment: Katharine Dai WPtel: [phone] [facility] (15 min) Moderate 09/12/2018 Patient Education: Patient Medication Summary Completed 09/12/2018 Appointment: Kar[facility] Bahena [facility]Ptel: [phone] (15 min) Moderate 08/16/2018 Visit Plan: I [...] surgically removed. 08/14/2018 Appointment: Karma Bahena WPtel: [facility]5 [facility] [place] (15 min) Moderate 08/14/2018 Patient Education: [...] surgically removed. 07/26/2018 Appointment: Karma Bahena WPtel: [facility]6 [facility] (15 min) Moderate 07/26/2018 Patient Education: Patient [...] not improving. 06/04/2018 Appointment: Karma Bahena WPtel: [facility] [place] (15 min) Moderate 06/04/2018 Patient Education: Patient Medication Summary Completed 06/04/2018 Appointment: Karma Bahena WPtel: [facility] (15 min) Moderate 03/14/2018 Visit Plan: Hypertension [...] q 3 months or q 6 m [facility] based on previous levels of control. 01/31/2018 Appointment: Katharine Dai WPtel: [phone] [facility] - Annual Wellness Visit 01/31/2018 Patient [...] allergy spray. 12/14/2017 Appointment: Karma Bahena WPtel: [address] [place] [address] (15 min) Moderate 12/14/2017 Patient Education: Patient [...] allergy spray. 12/07/2017 Appointment: Katharine Dai WPtel: [address] [place], [place] [id number] (15 min) Moderate 12/07/2017 Patient Education: Patient [...] q 3 months or q 6 m [facility] based on previous levels of control. 11/14/2017 Appointment: Karma Bahena WPtel: [phone] [facility] (15 min) Moderate 11/14/2017 Patient Education: Patient [...] today. 03/27/2017 Appointment: Karma Bahena WPtel: [phone] [facility] (15 min) Moderate 03/27/2017 Patient Education: Patient [...] surrogate. 01/23/2017 Appointment: Katharine Dai WPtel: [phone] [facility] - Annual Wellness Visit 01/23/2017 Patient [...] uncontrolled. 01/19/2017 Appointment: Karma Bahena WPtel: [phone] [facility] (15 min) Moderate 01/19/2017 Patient Education: Patient Medication Summary Completed 01/19/2017 Care Plan: Referral Order SNOMED-CT : 149710014 Pending 01/19/2017 Appointment: Karma Bahena WPtel: [facility]5 [facility] (15 min) Moderate 01/04/2017 Appointment: Karma Bahena WPtel: [phone] [facility] [place] (15 min) Moderate 12/28/2016 Visit Plan: IUN-voman-sxh zpack-call if symptoms do not resolve or if any worse. Patient verbalized understanding of plan. 11/29/2016 Appointment: Laura Colin WPtel: [facility]5 [phone] [place] (15 min) Moderate 11/29/2016 Patient Education: [...] pharmacy. 11/23/2016 Appointment: Katharine Dai WPtel: [phone] [facility] (15 min) Moderate 11/23/2016 Patient Education: Patient Medication Summary Completed 11/23/2016 Visit Plan: Pharyngitis-Discussed natural and expected course of this diagnosis and need to alert me if symptoms do not follow expected course, or if any worse. Recommended salt water gargles as needed for pain. Ty lenol/motrin as needed for fever/discomfort. 11/21/2016 Appointment: Laura Colin WPtel: [facility]2 [phone] [place] (15 min) Moderate 11/21/2016 Patient Education: [...] monitor symptoms. 11/08/2016 Appointment: Karma Bahena WPtel: [facility]4 [facility] (10 min) Simple 11/08/2016 Patient Education: Patient [...] etc. 11/02/2016 Appointment: Karma Bahena WPtel: [phone] (15 min) Moderate 11/02/2016 Appointment: Nurse Visit 11/02/2016 Patient Education: Patient Medication Summary Completed 11/02/2016 Appointment: Nurse Visit 10/31/2016 Visit Plan: Laceration-right forearm- Pt was instructed to keep the wound clean, cleanse with sterile saline, use bactroban ointment, call if redness, pustular drainage, or any other acute concerns. Follow up Monday for dressing changes. 10/27/2016 Appointment: Laura Colin WPtel: [phone] [place] (30 min) Complex 10/27/2016 Patient Education: [...] in symptoms. 08/31/2016 Appointment: Karma Bahena WPtel: [phone] (15 min) Moderate 08/31/2016 Patient Education: Patient [...] your swelling. 07/27/2016 Appointment: Karma Bahena WPtel: [facility]7 [facility] (15 min) Moderate 07/27/2016 Patient Education: Patient [...] of lasix 06/23/2016 Appointment: Karma Bahena WPtel: [facility]8 [facility] (15 min) Moderate 06/23/2016 Patient Education: Patient Medication Summary Completed 06/23/2016 Patient Education: Hypertension Completed 06/23/2016 Visit Plan: Edema - with Dyspnea - RX for laxis and compression socks - pt to call if not improving. 06/09/2016 Appointment: Karma Bahena WPtel: [facility]1 [facility] (15 min) Moderate 06/09/2016 Patient Education: Patient Medication Summary Completed 06/09/2016 Visit Plan: Abdominal pain and rectal itching - recommended pt to use betamethasone on vaginal/rectal region, monitor symptoms call if not improving. 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 12/21/2015 Appointment: Laura Colin WPtel: [phone] [phone] [place] (30 min) Complex 12/21/2015 Patient Education: Patient [...] becoming uncontrolled. 11/03/2015 Appointment: Karma Bahena WPtel: [facility] (15 min) Moderate 11/03/2015 Patient Education: Patient [...] had left kidney and ureter removed in [place]-doing well 09/01/2015 Appointment: (30 min) Complex 09/01/2015 Patient Education: Patient Medication Summary Completed 09/01/2015 Patient Education: Hypertension Completed 09/01/2015 Appointment: Karma Bahena WPtel: [facility]5 [facility] (15 min) Moderate 07/13/2015 Visit Plan: Hematuria/Urethritis [...] 05/13/2015 Care Plan: Referral Order SNOMED-CT : [id number] Ordered 05/08/2015 Visit Plan: Atrial Fibrillation - [...] Dr. Collins. 05/07/2015 Appointment: Karma Bahena WPtel: [address] [place], [place] [address] (15 min) Moderate 05/07/2015 Patient Education: Patient [...] becoming uncontrolled. 10/30/2014 Appointment: Karma Bahena WPtel: [facility]5 [facility] Follow up 10/30/2014 Patient Education: Patient Medication Summary Completed 10/30/2014 Appointment: Karma Bahena WPtel: [address] [place], [place] [phone] Follow up 07/22/2014 Visit Plan: Atrial Fibrillation [...] in hospital. 07/11/2014 Appointment: Karma Bahena WPtel: [facility]5 [facility] Sick 07/11/2014 Patient Education: Patient Medication Summary Completed 07/11/2014 Appointment: Karma Bahena WPtel: [facility]5 [facility] Follow up 07/07/2014 Visit Plan: Urinary incontinence and recurrent UTI's - doctor will refer to Dr. Joel Collins - for nonsurgical intervention for potential electrical stimulation/training of pelvic floor muscles - for strengthening - can start on the treatment when you get back from [place] - will also ask him about doing a cystoscopy to look into bladder to see if there is any bladder irritation. keep using the Premarin - use about 25Cent size of cream onto finger to apply to urethra and do this three times weekly. 05/20/2014 Appointment: Karma Bahena WPtel: [address] [place], [place] [phone] Follow up 05/20/2014 Patient Education: Patient Medication Summary Completed 05/20/2014 Appointment: Karma Bahena WPtel: [address] [place], [place] [phone] Lab Draw 05/14/2014 Patient Education: Patient Medication [...] recommended vesicare. 04/29/2014 Appointment: Karma Bahena WPtel: [phone] [facility] Follow up 04/29/2014 Patient Education: Patient Medication [...] spray. 03/20/2014 Appointment: Karma Bahena WPtel: [phone] [facility] 03/20/2014 Patient Education: Patient Medication Summary Completed [...] becoming uncontrolled. 03/05/2014 Appointment: Karma Bahena WPtel: [phone] [facility] Follow up 03/05/2014 Patient Education: Patient Medication [...] Bahena WPtel: [phone] Follow up 01/29/2014 Patient Education: Patient Medication [...] exposure,and dyspnea on exertion - will ask [place] [facility] Patient do an overnight oxygen study on Lavina as she has cardiac history, weight loss, and nocturnal hypoxemia may be a part of her weight loss and fatigue. 12/25/2013 Appointment: Karma Bahena WPtel: [phone] [facility] Follow up 12/25/2013 Patient Education: Patient Medication [...] daily. 11/27/2013 Appointment: Karma Bahena WPtel: [phone] [facility] Follow up 11/27/2013 Patient Education: Patient Medication [...] to [facility] physical therapy for gereral osteoarhtritis program for strengthening and pain reduction. Hypertension - well controlled - continue with current medications, continue with no added salt diet. Pt has been encouraged to exercise daily. The pt has been advised to call the office if there are any acute concerns about change in blood pressure readings at home. 09/12/2013 Appointment: Karma Bahena WPtel: [phone] Follow up 09/12/2013 Patient Education: Patient Medication Summary Completed 09/12/2013 Patient Education: Hypertension Completed 09/12/2013 Appointment: Karma Bahena WPtel: [phone] [facility] Follow up 08/21/2013 Visit Plan: Hypertension - [...] coumadin-check PT/INR 08/15/2013 Appointment: Karma Bahena WPtel: [facility]9 [facility] Follow up 08/15/2013 Patient Education: Patient Medication [...] of urethra. 08/01/2013 Appointment: Karma Bahena WPtel: [facility]9 [facility] Follow up 08/01/2013 Patient Education: Patient Medication Summary Completed 08/01/2013 Patient Education: Hypertension Completed 08/01/2013 Appointment: Laura Colin WPtel: [facility]5 [phone] [place] Lab Draw 07/29/2013 Patient Education: Patient Medication Summary Completed 07/29/2013 Visit Plan: Osteoporosis-prolia on june 25-patient to let Dr Hansen know 07/01/2013 Appointment: Laura Colin WPtel: [phone] Follow up 07/01/2013 Appointment: Karma Bahena WPtel: [facility]5 [facility] [place] Follow up 07/01/2013 Patient Education: Patient Medication Summary Completed 07/01/2013 Appointment: Karma Bahena WPtel: [facility]5 [facility] [place] Follow up 06/25/2013 Appointment: Karma Bahena WPtel: [facility]5 [facility] [place] Lab Draw 06/20/2013 Patient Education: Patient Medication Summary Completed 06/20/2013 Appointment: Karam Bahena WPtel: [facility]5 [facility] [place] Lab Draw 06/19/2013 Visit Plan: Atrial [...] at home. 05/29/2013 Appointment: Karma Bahena WPtel: [facility] [place] Follow up 05/29/2013 Patient Education: Patient [...] home. 05/15/2013 Appointment: Karma Bahena WPtel: [phone] [facility] [place] Other 05/15/2013 Patient Education: Patient Medication [...] shot today. 04/23/2013 Appointment: Karma Bahena WPtel: [facility]5 [facility] [place] Other 04/23/2013 Patient Education: Patient Medication [...] this regimen. 03/21/2013 Appointment: Laura Colin WPtel: [facility]6 [phone] Follow up 03/21/2013 Patient Education: Patient Medication [...] becoming uncontrolled. 01/16/2013 Appointment: Karma Bahena WPtel: [phone] [facility] Follow up 01/16/2013 Patient Education: Patient Medication Summary Completed 01/16/2013 Patient Education: Hypertension Completed 01/16/2013 Visit Plan: Wound Instructions - Pt was instruced to keep the wound clean, wash with antibacterial soap, use triple antibiotic ointment, call if redness, pustular drainage, or any other acute conerns. 12/19/2012 Appointment: Karma Bahena WPtel: [facility]5 [facility] Other 12/19/2012 Patient Education: Patient Medication Summary Completed 12/19/2012 Patient Education: Patient Medication Summary Completed 12/17/2012 Visit Plan: Cellulitis - improved- monitor symptoms - need to check handon Monday morning. 12/14/2012 Appointment: Karma Bahena WPtel: [facility]5 [facility] Follow up 12/14/2012 Patient Education: Patient Medication Summary Completed 12/14/2012 Visit Plan: Cellulitis - improved- monitor symptoms - need to check handon Monday morning. 12/12/2012 Appointment: Karma Bahena WPtel: [facility]5 [facility] Work-in 12/12/2012 Patient Education: Patient Medication Summary [...] warmth, discharge. 12/10/2012 Appointment: Karma Bahena WPtel: [facility]5 [facility] Other 12/10/2012 Patient Education: Patient Medication Summary [...] becoming uncontrolled. 10/30/2012 Appointment: Karma Bahena WPtel: [facility]5 [facility] Follow up 10/30/2012 Patient Education: Patient Medication Summary Completed 10/30/2012 Appointment: Laura Colin WPtel: [phone] [phone] Lab Draw 09/13/2012 Patient Education: Patient Medication [...] and 3.5. 08/08/2012 Appointment: Karma Bahena WPtel: [phone] [facility] Other 08/08/2012 Patient Education: Patient Medication Summary [...] Bahena WPtel: [phone] swelling, leg edema Other 07/11/2012 Patient Education: [...] Bahena WPtel: [phone] Follow up 05/08/2012 Patient Education: Patient Medication [...] that was lost during hospitalization. 04/18/2012 Appointment: JosefMigdaliay WPtel: [phone] [facility] Follow up 04/18/2012 Patient Education: Patient Medication Summary Completed 04/18/2012 Patient Education: High Blood Pressure: Essential Hypertension Completed 04/18/2012 Appointment: Karma Bahena WPtel: [phone] [facility] Follow up 04/09/2012 Appointment: Karma Bahena WPtel: [phone] [facility] [place] Lab Draw 04/04/2012 Appointment: Laura Cloin WPtel: [phone] [place] Lab Draw 03/19/2012 Visit Plan: Abdominal [...] Hypertension Completed 03/13/2012 Appointment: Karma Bahena WPtel: [phone] [facility] [place] Lab Draw 03/08/2012 Patient Education: Patient [...] cardiac rehab. 02/20/2012 Appointment: Karma Bahena WPtel: [facility]1 [facility] [place] Other 02/20/2012 Patient Education: Patient Medication [...] becoming uncontrolled. 02/13/2012 Appointment: Laura Colin WPtel: [facility] [place] Other 02/13/2012 Patient Education: Patient Medication Summary Completed 02/13/2012 Appointment: Karma Bahena WPtel: [phone] [facility] [place] Lab Draw 02/07/2012 Visit Plan: Atrial [...] the medication. 02/01/2012 Appointment: Karma Bahena WPtel: [facility]5 [facility] Other 02/01/2012 Patient Education: Patient Medication Summary Completed 02/01/2012 Patient Education: High Blood Pressure: Essential Hypertension Completed 02/01/2012 Appointment: Karma Bahena WPtel: [facility]5 [facility] [place] Lab Draw 01/17/2012 Visit Plan: Atrial [...] at home. 2012 Appointment: Karma Bahena WPtel: [phone] [facility] Other 2012 Patient Education: Patient Medication Summary Completed 2012 Patient Education: High Blood Pressure: Essential Hypertension Completed 2012 Appointment: Karma Bahena WPtel: [phone] [facility] Follow up 12/20/2011 Visit Plan: Dicyclomine up [...] room. 12/01/2011 Appointment: Karma Bahena WPtel: [phone] [facility] [place] Other 12/01/2011 Patient Education: Patient Medication [...] infection resolves. 11/23/2011 Appointment: Laura Colin WPtel: [facility]5 [place] [id number] [place] [address] Other 11/23/2011 Patient Education: Patient Medication Summary Completed 11/23/2011 Patient Education: High Blood Pressure: Essential Hypertension Completed 11/23/2011 Visit Plan: Cerumen Impaction - The impacted cerumen was removed with the use of either ear currette alone or in combination with ear curette and water pick. The patient tolerated the procedure without incident and had improvement in hearing 10/17/2011 Appointment: Laura Colin WPtel: [facility]5 [facility] [place] [address] Other 10/17/2011 Patient Education: Patient Medication Summary [...] by irrigation. 10/03/2011 Appointment: Karma Bahena WPtel: [facility]5 [place] [phone] [place] Other 10/03/2011 Patient Education: Patient Medication [...] is evidence. 08/08/2011 Appointment: Karma Bahena WPtel: [address] [place] [address] Other 08/08/2011 Patient Education: Patient Medication Summary Completed 08/08/2011 Patient Education: High Blood Pressure: Essential Hypertension Completed 08/08/2011 Visit Plan: Muscle cramps - the cramps are a little better, continue with the Diltiazem and it is okay to use the over the counter supplement with quinine - but use it sparingly. For the rash, use the prescripti on the credit administration manager prescribed for the itching , call if the rash is not improved. Torticollis - continue with physical therapy, call if the neck muscles do not continue to show improvement. 05/09/2011 Appointment: Karma Bahena WPtel: [address] [place] [address] Other 05/09/2011 Patient Education: Patient Medication Summary [...] water aerobics. 03/29/2011 Appointment: Karma Bahena WPtel: [address] [place] [address] [place] Other 03/29/2011 Patient Education: Patient Medication Summary Completed 03/29/2011 Appointment: Karma Bahena WPtel: [address] [place], [place] [phone] Other 03/17/2011 Visit Plan: UTI - UA negative. Urge incontinence- restart on the vesicare- at 5 mg. Continue to avoid caffinated foods/fluids. Peripheral Neuropathy - per aircraft maintenance technician report - Continue with the metanex. Loss of weight - WEIGHT CHECK IN 2 WKS. Palpitations- likely stress induced. If the symptoms worsen, call the office. 03/15/2011 Appointment: Karma Bahena WPtel: [facility] Follow up 03/15/2011 Patient Education: Patient Medication [...] would need to be surgically removed. . Hypothyroidism - pt with chronic hypothyroidism, [...] - continue with supportive care, bactroban, etc. 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 . Cellulitis - improved- monitor symptoms - need to check handon Monday morning. Nasal spray- use twice daily, one spray [...] to have the wax removed by irrigation. . Allergies - chronic - recommended pt [...] at home. Ynes- recommended cardiac rehab. . Cellulitis - improved- [...] to [facility]oarht[facility] program for strengthening and pain reduction. [...] For the rash, use the prescription the credit administration manager prescribed for the itching , call [...] in blood pressure readings at home. . JPT-rlewb-rrm zpack-call if symptoms do not resolve or [...] avoid caffinated foods/fluids. Peripheral Neuropathy - per aircraft maintenance technician report - Continue with the metanex. Loss [...] symptoms - referral to Dr. Collins. . Cerumen Impaction - The impacted cerumen [...] in symptoms, worsening redness, warmth, discharge. . Abdominal pain and rectal itching - [...] not improving will consult Dr. Collins. . Hand pain with arthritis - Raynaud syndrome - discussed with pt - RX for Voltaren gel sent to the pharmacy. continue with amlodipine. continue with carafate - use as much [...] pneumonia vaccine was given in hospital. . Hypertension - well controlled - continue [...] been given high dose flu shot today. diflucan 150mg daily x 7 days - [...] know if this helps with your swelling. RETURN FOR DRESSING CHANGE ON MONDAY . [...] and will be called with report. . Medicare Exam - today we discussed [...] had left kidney and ureter removed in [place]- doing well . Atrial Fibrillation - pt on chronic [...] would need to be surgically removed. . Hematuria - check UA. Referral to [...] spray in the nasal steroid allergy spray. INCREASE YOUR LISINOPRIL 10MG TO 2 PILLS [...] concerns. Bruising-left leg-no injuury-on coumadin-check PT/INR . Allergies - chronic - recommended pt [...] a referral to dr. jeff - SER[facility] hoarsemarily. Atrial Fibrillation - pt on chronic anticoagulation [...] the treatment when you get back from [place] - will also ask him about doing [...] the treatment when you get back from [place] - will also ask him about doing [...] to the hospital for further work up-Dr. Chireno in to evalaute patient as well-Will keep patient NPO for now and plan to check CT scan as well as labs and start patient on intravenous fluids. Patient verbalized understanding of plan. get some hylands for leg cramps. Hypertension [...] exposure,and dyspnea on exertion - will ask [facility] do an overnight oxygen study [...] her [employer] paperwork for health care surrogate. PT HAS BEEN INSTRUCTED TO START USING [...] daily use of bactroban - monitor symptoms. strep swab daily anti histamine . Pharyngitis-Discussed natural and expected course of this diagnosis and need to alert me if symptoms do not follow expected course, or if any worse. Recommended salt water gargles as needed for pain. Tylenol/motrin as needed for fever/discomfort.
--- OUTSIDE RECORDS SUMMARY | 2018-12-10 19:17 | XMS REPORT | CCD ---
Author Author Laura Colin Organization Karma Bahena MD, [facility] Address [address] [place] [address] Phone Care Team Providers Care Assembly Machine Feeder Name Role Phone Karma Bahena PP Unavailable CCM Unavailable Summary Purpose Interface Exchange Insurance Providers Payer name Policy type / Coverage type Covered republican ID Effective Begin Date Effective End Date WPS Medicare Part B Medicare Part B [id number] 2018 Unknown AARP Medicare Part B [id number] 2018 Unknown Family history Sister Diagnosis Age [...] Unknown House 03/15/[address]: 058028382 Never smoker 03/15/2011 Has the patient ever used illegal drugs? Unknown Has never used illegal drugs 03/15/2011 Allergies, Adverse Reactions, Alerts Substance Reaction Codes Entered Date Inactivated Date Status BACTINE RxNorm: 090055 03/04/2011 No Inactive Date Active MICONAZOLE RxNorm: 6932 03/04/2011 No Inactive Date Active NEOSPORIN RxNorm: 994725 03/04/2011 No Inactive Date Active NEOMYCIN RxNorm: 7299 03/04/2011 No Inactive Date Active CORTISPORIN RxNorm: 02069 03/04/2011 No Inactive Date Active bactrim RxNorm: 037435 03/13/2012 No Inactive Date Active AUGMENTIN diarrhea RxNorm: 486505 2016 No Inactive Date Active METRONIDAZOLE Unknown 03/04/2011 No Inactive Date Active NYSTATIN Unknown 03/04/2011 No Inactive Date Active PNEUMOCOCCAL VACCINE Unknown 03/04/2011 No Inactive Date Active Past Medical History Illness Codes Condition Status Onset Date Resolved Date Pain in left hand ICD-9: 729.5 ICD-10: M79.642 Active 10/09/2018 Unknown Pain in right hand ICD- 9: 729.5 ICD-10: M79.641 Active 10/09/2018 Unknown Raynaud's syndrome without 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 Active 07/26/2018 Unknown Acute laryngopharyngitis ICD-9: 465.0 ICD-10: J06.0 Active 11/21/2016 Unknown Chronic atrial fibrillation ICD-9: 427.31 ICD-10: [...] ICD-9: V76.12 ICD-10: Z12.31 Active 05/12/2014 Unknown Atrophy of thyroid (acquired) ICD-9: 244.8 ICD-10: E03.4 Active 11/02/2016 Unknown Essential (primary) hypertension ICD-9: 401.1 ICD-10: I10 Active 01/19/2017 Unknown Gastro-esophageal reflux disease without esophagitis ICD-9: 530.81 ICD-10: K21.9 Active 06/04/2018 Unknown Essential (primary) hypertension ICD-9: 401.9 ICD-10: I10 Active 12/25/2013 Unknown Other intermediate (current) drug therapy ICD-9: V58.83 ICD-10: Z79.899 [...] 706.2 ICD-10: L72.0 Active 02/01/2016 Unknown Other intermediate (current) drug therapy ICD-9: V58.69 ICD-10: Z79.899 [...] Problems Condition Codes Effective Dates Condition Status Pain in left hand ICD-9: 729.5 ICD-10: M79.642 10/09/2018 Active Pain in right hand ICD- 9: 729.5 ICD-10: M79.641 10/09/2018 Active Raynaud's syndrome without 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 07/26/2018 Active Acute laryngopharyngitis ICD-9: 465.0 ICD-10: J06.0 11/21/2016 Active Chronic atrial fibrillation ICD-9: 427.31 ICD-10: [...] breast ICD-9: V76.12 ICD-10: Z12.31 05/12/2014 Active Atrophy of thyroid (acquired) ICD-9: 244.8 ICD-10: E03.4 11/02/2016 Active Essential (primary) hypertension ICD-9: 401.1 ICD-10: I10 01/19/2017 Active Gastro-esophageal reflux disease without esophagitis ICD-9: 530.81 ICD-10: K21.9 06/04/2018 Active Essential (primary) hypertension ICD-9: 401.9 ICD-10: I10 12/25/2013 Active Other intermediate (current) drug therapy ICD-9: V58.83 ICD-10: Z79.899 [...] ICD-9: 706.2 ICD-10: L72.0 02/01/2016 Active Other buttermaker (current) drug therapy ICD-9: V58.69 ICD-10: Z79.899 [...] Start Date Stop Date Status Fill Instructions Voltaren 1 % topical gel RxNorm: 247362 2 Gram(s) TOP QID on left shoulder and bilateral hands 10/17/2018 05/14/2019 Active PA APPROVED UNTIL JUL 09 2019 [id number] amlodipine 5 mg tablet RxNorm: 881961 1/2 TABLET(S) PO DAILY MAY TAKE AN EXTRA 1/2 PILL AT THE END OF THE DAY IF BLOOD PRESSURE IS ELEVATED OVER 140 10/15/2018 02/11/2019 Active Patient requests 90 days supply Voltaren 1 % topical gel RxNorm: 474874 2 Gram(s) TOP QID on left shoulder and bilateral hands 10/09/2018 10/16/2018 Inactive levothyroxine 75 mcg tablet RxNorm: 467314 1 Tablet(s) PO daily 09/19/2018 01/16/2019 Active Keflex 500 mg capsule RxNorm: 104120 1 Capsule(s) PO TID 09/12/2018 09/18/2018 Inactive cyclobenzaprine 5 mg tablet RxNorm: 589656 Tablet(s) TABLET(S) 1/2 TABLET(S) PO Q8 NEEDED MUSCLE SPASMS 08/14/2018 No Stop Date Active spironolactone 25 mg tablet RxNorm: 150201 1 Tablet(s) PO BID 08/14/2018 11/06/2019 Active see new directions and quantity Nitro-Bid 2 % transdermal ointment RxNorm: 421825 1 dime size amount TD BID to fingers and toes 08/14/2018 09/12/2018 Inactive cyclobenzaprine 5 mg tablet RxNorm: 504914 TABLET(S) 1/2 TABLET(S) PO Q8 NEEDED MUSCLE SPASMS 08/06/2018 08/13/2018 Inactive amlodipine 5 mg tablet RxNorm: 168188 1/2 Tablet(s) PO daily may take an extra 1/2 pill at the end of the day if blood pressure is elevated over 140 07/26/2018 10/14/2018 Inactive cefdinir 300 mg capsule RxNorm: 912820 1 Capsule(s) PO BID 06/20/2018 06/26/2018 Inactive cefdinir 300 mg capsule RxNorm: 788073 1 Capsule(s) PO BID 06/20/2018 06/19/2018 Inactive metoprolol succinate ER 50 mg tablet,extended release 24 hr RxNorm: 407905 1.5 Tablet(s) daily 06/15/2018 03/11/2019 Active sucralfate 100 mg/mL oral suspension RxNorm: 434775 2 Teaspoon(s) PO TID as needed with reflux symptoms 06/04/2018 No Stop Date Active Vesicare 10 mg tablet RxNorm: 077372 1 TABLET(S) PO EVERY OTHER DAY 05/14/2018 01/08/2019 Active levothyroxine 50 mcg tablet RxNorm: 203261 1 TABLET(S) PO DAILY 04/30/2018 09/18/2018 Inactive Patient requests 90 days supply spironolactone 25 mg tablet RxNorm: 302111 1 Tablet(s) PO daily 03/14/2018 08/13/2018 Inactive levothyroxine 50 mcg tablet RxNorm: 754643 1 Tablet(s) PO daily 02/01/2018 04/29/2018 Inactive Eliquis 2.5 mg tablet RxNorm: 2228439 1 Tablet(s) PO BID 01/31/2018 02/20/2018 Inactive levothyroxine 50 mcg tablet RxNorm: 713537 1 Tablet(s) PO daily 01/31/2018 01/31/2018 Inactive Eliquis 2.5 mg tablet RxNorm: 6309487 TAKE 1 TABLET BY MOUTH TWICE DAILY 01/23/2018 07/21/2018 Inactive metoprolol succinate ER 50 mg tablet,extended release 24 hr RxNorm: 722450 1 TABLET(S) PO DAILY 01/23/2018 01/30/2018 Inactive metoprolol succinate ER 50 mg tablet,extended release 24 hr RxNorm: 144628 1.5 Tablet(s) daily 01/22/2018 06/14/2018 Inactive lisinopril 20 mg tablet RxNorm: 872904 1/2 Tablet(s) daily 01/19/2018 01/21/2018 Inactive Patient requests 90 days supply Singulair 10 mg tablet RxNorm: 727456 TAKE 1 TABLET BY MOUTH AT BEDTIME 01/18/2018 04/17/2018 Inactive Patient requests 90 days supply Singulair 10 mg tablet RxNorm: 658095 Tablet(s) PO 01/17/2018 01/17/2018 Inactive digoxin 125 mcg tablet RxNorm: 216774 1 TABLET(S) PO DAILY 01/03/2018 12/28/2018 Active Symbicort 160 mcg-4.5 mcg/actuation HFA aerosol inhaler RxNorm: 5021960 2 Puff(s) INH BID 12/14/2017 04/12/2018 Inactive please dispense an aerochamber for patient as well as her symbicort pantoprazole 40 mg tablet,delayed release RxNorm: 207406 1 Tablet(s) PO daily 12/14/2017 12/08/2018 Active cyclobenzaprine 5 mg tablet RxNorm: 434478 Tablet(s) 1/2 TABLET(S) PO Q8 NEEDED MUSCLE SPASMS 12/14/2017 08/05/2018 Inactive ProAir RespiClick 90 mcg/actuation breath activated RxNorm: 7289323 1-2 INH QID as needed shortness of breath 12/14/2017 07/11/2018 Inactive cyclobenzaprine 5 mg tablet RxNorm: 834308 1/2 TABLET(S) PO Q8 NEEDED MUSCLE SPASMS 12/08/2017 12/13/2017 Inactive betamethasone dipropionate 0.05 % topical ointment RxNorm: 015230 1 Application TOP TID use topically on the rectal tissue three times daily x 1 week then as needed 11/13/2017 No Stop Date Active Premarin 0.625 mg/gram vaginal cream RxNorm: 644757 1/2 GRAM(S) VAG TIW 11/13/2017 12/12/2017 Inactive cyclobenzaprine 5 mg tablet RxNorm: 713547 1/2 TABLET(S) PO Q8 NEEDED MUSCLE SPASMS 10/17/2017 12/07/2017 Inactive Vesicare 10 mg tablet RxNorm: 198540 1 Tablet(s) PO every other day 10/17/2017 04/14/2018 Inactive lisinopril 20 mg tablet RxNorm: 829299 1 TABLET(S) PO DAILY 10/02/2017 01/18/2018 Inactive Patient requests 90 days supply levothyroxine 75 mcg tablet RxNorm: 269665 1 TABLET(S) PO DAILY 09/25/2017 01/30/2018 Inactive spironolactone 25 mg tablet RxNorm: 427973 1 TABLET(S) PO DAILY 08/16/2017 03/13/2018 Inactive cyclobenzaprine 5 mg tablet RxNorm: 165055 1/2 TABLET(S) PO Q8 NEEDED MUSCLE SPASMS 08/16/2017 10/16/2017 Inactive Eliquis 2.5 mg tablet RxNorm: 1069566 TAKE 1 TABLET BY MOUTH TWICE DAILY 07/26/2017 01/21/2018 Inactive cyclobenzaprine 5 mg tablet RxNorm: 312881 1/2 Tablet(s) PO Q8 as needed muscle spasms 06/19/2017 08/15/2017 Inactive lisinopril 20 mg tablet RxNorm: 425670 1 TABLET(S) PO DAILY 06/12/2017 10/01/2017 Inactive metoprolol succinate ER 50 mg tablet,extended release 24 hr RxNorm: 398227 1 TABLET(S) PO DAILY 04/07/2017 01/01/2018 Inactive spironolactone 25 mg tablet RxNorm: 465719 1 Tablet(s) PO daily 03/27/2017 03/13/2018 Inactive acyclovir 800 mg tablet RxNorm: 176866 1 Tablet(s) PO TID 03/21/2017 03/30/2017 Inactive acyclovir 800 mg tablet RxNorm: 441968 1 Tablet(s) PO TID 03/21/2017 03/20/2017 Inactive levothyroxine 75 mcg tablet RxNorm: 691533 1 Tablet(s) PO daily 03/16/2017 09/11/2017 Inactive spironolactone 25 mg tablet RxNorm: 116399 1 TABLET(S) PO DAILY 02/09/2017 03/26/2017 Inactive lisinopril 20 mg tablet RxNorm: 279963 1 TABLET(S) PO DAILY 01/02/2017 05/31/2017 Inactive Zithromax Z-Cluadio 250 mg tablet RxNorm: 063357 1 Tablet(s) PO UD 11/29/2016 12/03/2016 Inactive ZPACK Keflex 500 mg capsule RxNorm: 476856 1 Capsule(s) PO TID 11/23/2016 12/02/2016 Inactive guaifenesin 400 mg tablet RxNorm: 511568 1 Tablet(s) PO Q6 as needed 11/23/2016 11/27/2016 Inactive omeprazole 40 mg capsule,delayed release RxNorm: 444255 1 Capsule(s) PO QPM 11/02/2016 12/13/2017 Inactive digoxin 125 mcg tablet RxNorm: 812438 1 TABLET(S) PO DAILY 10/27/2016 07/23/2017 Inactive cyclobenzaprine 5 mg tablet RxNorm: 118473 1/2 Tablet(s) PO Q8 PRN 10/25/2016 06/18/2017 Inactive prn muscle spasms Augmentin 500 mg-125 mg tablet RxNorm: 029747 1 Tablet(s) PO BID 10/24/2016 11/02/2016 Inactive Lasix 20 mg tablet RxNorm: 383596 Tablet(s) PRN one to two times a week if needed 07/27/2016 No Stop Date Active Patient requests 90 days supply spironolactone 25 mg tablet RxNorm: 177176 1 Tablet(s) PO daily 07/27/2016 02/08/2017 Inactive Diflucan 150 mg tablet RxNorm: 766758 1 Tablet(s) PO daily 07/27/2016 08/02/2016 Inactive lisinopril 20 mg tablet RxNorm: 721089 1 Tablet(s) PO daily 07/12/2016 01/01/2017 Inactive Lasix 20 mg tablet RxNorm: 313668 1 TABLET(S) PO EVERY OTHER DAY EVERY OTHER DAY 06/10/2016 07/26/2016 Inactive Patient requests 90 days supply potassium chloride ER 10 mEq capsule,extended release RxNorm: 770451 1 CAPSULE(S) PO EVERY OTHER DAY 06/10/2016 07/26/2016 Inactive Patient requests 90 days supply potassium chloride ER 10 mEq capsule,extended release RxNorm: 168706 1 Capsule(s) PO every other day 06/09/2016 06/09/2016 Inactive Lasix 20 mg tablet RxNorm: 795761 1 Tablet(s) PO every other day every other day 06/09/2016 06/09/2016 Inactive levothyroxine 88 mcg tablet RxNorm: 069493 1 Tablet(s) PO daily 05/11/2016 11/06/2016 Inactive Premarin 0.625 mg/gram vaginal cream RxNorm: 172062 1/2 Gram(s) VAG TIW 03/24/2016 03/18/2017 Inactive metoprolol succinate ER 50 mg tablet,extended release 24 hr RxNorm: 423483 1 Tablet(s) PO daily 03/24/2016 03/18/2017 Inactive pantoprazole 40 mg tablet,delayed release RxNorm: 027306 1 Tablet(s) PO daily 02/08/2016 11/01/2016 Inactive betamethasone dipropionate 0.05 % topical ointment RxNorm: 244511 1 Application TOP TID use topically on the rectal tissue three times daily x 1 week then as needed 02/02/2016 11/12/2017 Inactive pantoprazole 40 mg tablet,delayed release RxNorm: 849807 1 Tablet(s) PO daily 2016 02/07/2016 Inactive alprazolam 0.25 mg tablet RxNorm: 265549 1 Tablet(s) PO Q6 as needed 12/04/2015 No Stop Date Active Vesicare 10 mg tablet RxNorm: 290304 1 Tablet(s) PO every other day 11/03/2015 10/16/2017 Inactive alprazolam 0.25 mg tablet RxNorm: 206605 1 Tablet(s) PO Q6 as needed 11/03/2015 12/03/2015 Inactive Premarin 0.625 mg/gram vaginal cream RxNorm: 346747 1/2 Gram(s) VAG TIW 11/03/2015 03/23/2016 Inactive levothyroxine 88 mcg tablet RxNorm: 566745 1 Tablet(s) PO daily 11/03/2015 05/10/2016 Inactive Diflucan 150 mg tablet RxNorm: 746316 1 Tablet(s) PO daily 10/19/2015 10/25/2015 Inactive cetirizine 10 mg chewable tablet RxNorm: 1210276 1 Tablet(s) PO daily 10/13/2015 11/11/2015 Inactive cetirizine 10 mg capsule RxNorm: 5489841 1 Capsule(s) PO daily 10/13/2015 11/11/2015 Inactive Vesicare 10 mg tablet RxNorm: 372702 1/2 TABLET(S) PO BID 09/21/2015 11/02/2015 Inactive betamethasone dipropionate 0.05 % topical ointment RxNorm: 395057 1 Application TOP TID use topically on the rectal tissue three times daily x 1 week then as needed 09/15/2015 02/01/2016 Inactive lisinopril 20 mg tablet RxNorm: 918217 1 Tablet(s) PO daily 09/01/2015 07/11/2016 Inactive digoxin 125 mcg tablet RxNorm: 579742 1 Tablet(s) PO daily 09/01/2015 08/25/2016 Inactive Augmentin 500 mg-125 mg tablet RxNorm: 264987 1 Tablet(s) PO TID 05/26/2015 06/04/2015 Inactive Pyridium 200 mg tablet RxNorm: 5435396 1 Tablet(s) PO TID 05/26/2015 05/27/2015 Inactive levothyroxine 88 mcg tablet RxNorm: 441079 1 Tablet(s) PO daily except 1/2 pill on monday and 05/07/2015 11/02/2015 Inactive digoxin 125 mcg tablet RxNorm: 816979 1 Tablet(s) PO daily 05/07/2015 08/31/2015 Inactive lisinopril 20 mg tablet RxNorm: 200593 1 TABLET(S) PO BID 04/13/2015 09/01/2015 Inactive Coumadin 1 mg tablet RxNorm: 042928 1 TABLET(S) PO DAILY 03/31/2015 08/31/2015 Inactive Coumadin 2 mg tablet RxNorm: 654080 4MG IN AM AND 1MG AT NIGHT TABLET(S) PO DAILY DIRECTED. 03/31/2015 08/31/2015 Inactive levothyroxine 88 mcg tablet RxNorm: 778730 1 Tablet(s) PO daily 03/23/2015 05/06/2015 Inactive alprazolam 0.25 mg tablet RxNorm: 546625 Tablet(s) PO 03/23/2015 04/06/2015 Inactive levothyroxine 88 mcg tablet RxNorm: 397393 1 Tablet(s) PO daily 01/28/2015 03/22/2015 Inactive levothyroxine 88 mcg tablet RxNorm: 923700 1 Tablet(s) PO daily 01/28/2015 01/27/2015 Inactive diltiazem ER 120 mg capsule,extended release RxNorm: 441149 1 Capsule(s) PO BID patient would like 4 months at a time 01/06/2015 09/28/2015 Inactive digoxin 125 mcg tablet RxNorm: 945924 Tablet(s) 1 TABLET(S) PO DAILY 12/24/2014 12/23/2014 Inactive pt will be paying palomares (On $4 list)Patient requests 90 days supply digoxin 125 mcg tablet RxNorm: 075141 Tablet(s) 1 TABLET(S) PO DAILY M W F Sat and 2 tabs on T TH 12/24/2014 05/06/2015 Inactive pt will be paying palomares (On $4 list)Patient requests 90 days supply dicyclomine 20 mg tablet RxNorm: 735544 1 Tablet(s) PO daily 11/17/2014 08/31/2015 Inactive one ac dinner and up to tid prn levothyroxine 88 mcg tablet RxNorm: 515907 1 Tablet(s) PO daily 11/03/2014 01/27/2015 Inactive Premarin 0.625 mg/gram vaginal cream RxNorm: 716775 1 APPLICATION VAG 1 APPLICATOR PER VAGINA 3 TIMES PER WEEK 11/03/2014 07/30/2015 Inactive digoxin 125 mcg tablet RxNorm: 292523 1 TABLET(S) PO DAILY 09/29/2014 12/23/2014 Inactive pt will be paying palomares (On $4 list)Patient requests 90 days supply digoxin 125 mcg tablet RxNorm: 118360 1 TABLET(S) PO DAILY 07/11/2014 04/06/2015 Inactive Vesicare 10 mg tablet RxNorm: 157657 1/2 Tablet(s) PO BID 05/20/2014 05/14/2015 Inactive Levaquin 500 mg tablet RxNorm: 167244 1 Tablet(s) PO daily 05/06/2014 05/08/2014 Inactive take probiotic BID while on ABT Levaquin 500 mg tablet RxNorm: 537235 1 Tablet(s) PO daily 05/02/2014 05/05/2014 Inactive take probiotic BID while on ABT diltiazem ER 120 mg capsule,extended release RxNorm: 060777 1 Capsule(s) PO BID patient would like 4 months at a time 04/29/2014 2015 Inactive Vesicare 10 mg tablet RxNorm: 332355 1/2 Tablet(s) PO BID 04/29/2014 05/19/2014 Inactive lisinopril 20 mg tablet RxNorm: 268222 1 Tablet(s) PO BID 03/20/2014 03/14/2015 Inactive diltiazem 90 mg tablet RxNorm: 198584 1/2 TABLET(S) PO QPM 03/04/2014 04/28/2014 Inactive also 180 q am diltiazem ER 120 mg capsule,extended release RxNorm: 044016 1 Capsule(s) PO daily patient would like 4 months at a time 01/29/2014 04/28/2014 Inactive Vesicare 10 mg tablet RxNorm: 525619 1 Tablet(s) PO QHS 01/14/2014 04/28/2014 Inactive Coumadin 2 mg tablet RxNorm: 123102 4mg in AM and 1mg at night Tablet(s) PO daily as directed. 12/25/2013 03/30/2015 Inactive Metanx 3 mg-35 mg-2 mg tablet RxNorm: 1 Tablet(s) PO daily 12/25/2013 11/02/2015 Inactive digoxin 125 mcg tablet RxNorm: 785045 1 Tablet(s) PO daily 12/25/2013 09/28/2014 Inactive pt will be paying palomares (On $4 list) Coumadin 2 mg tablet RxNorm: 350015 7.5 wed 5mg other Tablet(s) PO as directed. 12/03/2013 12/24/2013 Inactive omeprazole 20 mg tablet,delayed release RxNorm: 126046 1 Tablet(s) PO BID 11/27/2013 04/28/2014 Inactive Coumadin 2 mg tablet RxNorm: 183993 5 mg daily Tablet(s) PO as directed. 11/26/2013 12/02/2013 Inactive 5 mg daily Xanax 0.25 mg tablet RxNorm: 095457 1 Tablet(s) PO Q6 PRN 11/11/2013 12/25/2013 Inactive alprazolam 0.25 mg tablet RxNorm: 895136 tablet oral 11/11/2013 03/22/2015 Inactive sucralfate 1 gram tablet RxNorm: 410990 1 Tablet(s) PO AC & HS 11/04/2013 11/03/2013 Inactive sucralfate 1 gram tablet RxNorm: 842650 1 Tablet(s) PO AC & HS 11/04/2013 01/02/2014 Inactive Synthroid 100 mcg tablet RxNorm: 547609 1 Tablet(s) PO daily 10/31/2013 10/25/2014 Inactive Synthroid 100 mcg tablet RxNorm: 491439 1 Tablet(s) PO daily 09/30/2013 10/29/2013 Inactive Vesicare 10 mg tablet RxNorm: 971270 1 Tablet(s) PO QHS 09/30/2013 01/13/2014 Inactive Lotemax 0.5 % eye ointment RxNorm: 6023067 ointment opht 09/06/2013 12/10/2013 Inactive levothyroxine 100 mcg tablet RxNorm: 934584 tablet oral 09/05/2013 11/02/2014 Inactive Synthroid 100 mcg tablet RxNorm: 324904 1 Tablet(s) PO daily 09/05/2013 09/29/2013 Inactive Prolia 60 mg/mL Sub-Q Syringe RxNorm: 940245 1 Milliliter(s) SQ 06/25/2013 11/02/2015 Inactive dicyclomine 20 mg tablet RxNorm: 139010 1 Tablet(s) PO daily 06/24/2013 06/18/2014 Inactive one ac dinner and up to tid prn omeprazole 20 mg tablet,delayed release RxNorm: 590295 1 Tablet(s) PO BID 06/24/2013 11/26/2013 Inactive Cipro 500 mg tablet RxNorm: 638811 1 Tablet(s) PO BID 06/20/2013 06/26/2013 Inactive diltiazem ER 120 mg capsule,extended release RxNorm: 512347 1 Capsule(s) PO daily patient would like 4 months at a time 06/03/2013 01/28/2014 Inactive Coumadin 2 mg tablet RxNorm: 281481 as directed Tablet(s) PO as directed. 05/29/2013 11/25/2013 Inactive 5 mg daily Synthroid 88 mcg tablet RxNorm: 274471 1 Tablet(s) PO daily 04/24/2013 04/23/2013 Inactive Synthroid 88 mcg tablet RxNorm: 073343 1 Tablet(s) PO daily 04/24/2013 07/28/2013 Inactive Premarin 0.625 mg/gram vaginal cream RxNorm: 675122 1 Application VAG 1 applicator per vagina 3 times per week 04/23/2013 04/17/2014 Inactive Influenza Virus Vaccine 0.5 mL RxNorm: IM 04/23/2013 04/23/2013 Inactive digoxin 125 mcg tablet RxNorm: 704974 1 Tablet(s) PO daily 02/20/2013 04/20/2013 Inactive pt will be paying palomares (On $4 list) Digox 125 mcg tablet RxNorm: 7033424 tablet oral 02/13/2013 03/20/2014 Inactive digoxin 125 mcg tablet RxNorm: 128383 1 Tablet(s) PO daily 02/13/2013 02/19/2013 Inactive diltiazem 90 mg tablet RxNorm: 214791 1/2 Tablet(s) PO QPM 02/13/2013 02/07/2014 Inactive also 180 q am Levoxyl 75 mcg tablet RxNorm: 913542 1 Tablet(s) PO 01/16/2013 04/23/2013 Inactive Coumadin 2 mg tablet RxNorm: 418509 6mg daily except 3mg on wed and fri Tablet(s) PO 01/15/2013 05/28/2013 Inactive 5 mg daily Coumadin 2 mg tablet RxNorm: 153031 6mg daily Tablet(s) PO 12/21/2012 01/14/2013 Inactive 5 mg daily silver sulfadiazine 1 % Topical Cream RxNorm: 394283 TOP apply to affected area with each dressing change 12/19/2012 12/25/2013 Inactive cephalexin 500 mg tablet RxNorm: 481813 1 Tablet(s) PO TID 12/11/2012 12/17/2012 Inactive digoxin 125 mcg tablet RxNorm: 522884 1 Tablet(s) PO daily 10/30/2012 02/12/2013 Inactive digoxin 125 mcg tablet RxNorm: 386975 2 tab tue thurs one other days Tablet(s) PO daily 10/23/2012 10/29/2012 Inactive lisinopril 10 mg tablet RxNorm: 302360 1 Tablet(s) PO daily 10/17/2012 08/14/2013 Inactive Cipro 500 mg tablet RxNorm: 745853 1 Tablet(s) PO BID 09/13/2012 09/19/2012 Inactive Coumadin 1 mg tablet RxNorm: 043152 1 Tablet(s) PO daily 09/03/2012 09/02/2012 Inactive Coumadin 1 mg tablet RxNorm: 159888 1 Tablet(s) PO daily 09/03/2012 12/21/2012 Inactive Coumadin 2 mg tablet RxNorm: 413517 Tablet(s) PO 07/25/2012 12/20/2012 Inactive 5 mg daily digoxin 125 mcg tablet RxNorm: 755799 1 Tablet(s) PO daily 06/28/2012 10/22/2012 Inactive Coumadin 2 mg tablet RxNorm: 008364 Tablet(s) PO 06/27/2012 07/24/2012 Inactive 5mg daily except 4mg on monday Coumadin 2 mg tablet RxNorm: 846629 Tablet(s) PO 06/19/2012 06/26/2012 Inactive 5mg tue wed thur sat sun4mg mon(has 2mg and 1 mg tab) digoxin 125 mcg tablet RxNorm: 672702 1 Tablet(s) PO daily 05/29/2012 06/27/2012 Inactive Coumadin 2 mg tablet RxNorm: 435467 Tablet(s) PO 05/15/2012 06/18/2012 Inactive 5mg tue thur sat sun4mg mon frid(has 2mg and 1 mg tab) Coumadin 2 mg tablet RxNorm: 791606 Tablet(s) PO 04/25/2012 05/14/2012 Inactive 5mg tue thru sat4mg mond sun(has 2mg and 1 mg tab) Metanx 3 mg-35 mg-2 mg tablet RxNorm: 1 Tablet(s) PO BID 04/18/2012 12/24/2013 Inactive dicyclomine 20 mg tablet RxNorm: 721569 1 Tablet(s) PO 04/18/2012 06/23/2013 Inactive one ac dinner and up to tid prn digoxin 125 mcg tablet RxNorm: 853074 Tablet(s) PO daily except .25 on Tuesdays and 04/09/2012 05/28/2012 Inactive omeprazole 20 mg tablet,delayed release RxNorm: 820531 1 Tablet(s) PO BID 04/09/2012 04/03/2013 Inactive digoxin 125 mcg tablet RxNorm: 742309 1 Tablet(s) PO UD daily except none on Tuesdays and 03/13/2012 04/08/2012 Inactive Premarin 0.625 mg/gram Vaginal Cream RxNorm: 882215 1 Application VAG 1 applicator per vagina 3 times per week 02/20/2012 02/13/2013 Inactive omeprazole 20 mg tablet,delayed release RxNorm: 611890 1 Tablet(s) PO BID 02/13/2012 04/08/2012 Inactive Vesicare 10 mg tablet RxNorm: 864109 1 Tablet(s) PO QHS 02/13/2012 02/06/2013 Inactive Diflucan 150 mg tablet RxNorm: 407741 1 Tablet(s) PO daily 02/13/2012 02/19/2012 Inactive omeprazole 20 mg tablet,delayed release RxNorm: 407649 1 Tablet(s) PO BID 01/06/2012 02/12/2012 Inactive Calcium 600 + D(3) 600 mg (1,500)-200 unit Tab RxNorm: 607137 2 Tablet(s) PO BID 01/06/2012 08/31/2015 Inactive diltiazem 90 mg tablet RxNorm: 034481 1/2 Tablet(s) PO QPM 12/26/2011 02/12/2013 Inactive also 180 q am diltiazem ER 180 mg Cap RxNorm: 697718 1 Capsule(s) PO QAM 12/26/2011 04/08/2012 Inactive 45mg q hs Flagyl 500 mg Tab RxNorm: 084806 1 Tablet(s) PO BID 12/14/2011 12/20/2011 Inactive dicyclomine 10 mg Cap RxNorm: 640961 1 Capsule(s) PO AC & HS 12/01/2011 12/25/2011 Inactive Levaquin 500 mg Tab RxNorm: 364120 1 Tablet(s) PO daily 11/23/2011 11/29/2011 Inactive Rocephin 500 mg Solution for Injection RxNorm: 9800529 Inj 11/23/2011 11/23/2011 Inactive acyclovir 400 mg Tab RxNorm: 351376 1 Tablet(s) PO QID 11/10/2011 11/19/2011 Inactive acyclovir 400 mg Tab RxNorm: 007331 1 Tablet(s) PO QID 11/10/2011 11/09/2011 Inactive lisinopril 20 mg Tab RxNorm: 919798 1 Tablet(s) PO daily 10/03/2011 11/27/2011 Inactive lisinopril 20 mg Tab RxNorm: 474314 1 Tablet(s) PO daily 08/08/2011 10/02/2011 Inactive Reclast 5 mg/100 mL IV RxNorm: 528564 Milliliter(s) IV Yearly 06/08/2011 01/16/[address] Hansen manages Rocephin 500 mg Solution for Injection RxNorm: 9193572 1 Milliliter(s) Inj 03/04/2011 08/08/2011 Inactive Ceftin 500 mg Tab RxNorm: 951217 1 Tablet(s) PO BID 03/04/2011 08/08/2011 Inactive Vitamin D3 1,000 unit tablet RxNorm: 932727 2 Tablet(s) PO daily No Start Date Active Stool Softener 100 mg tablet RxNorm: 2927587 2 Tablet(s) PO QHS No Start Date Active Beano tablet RxNorm: 2-3 Tablet(s) PO as needed No Start Date Active Probiotic Pearls 15 mg (1 billion cell) capsule,delayed release RxNorm: 1 Capsule(s) PO daily No Start Date Active Lipitor 10 mg tablet RxNorm: 057854 1 Tablet(s) PO daily No Start Date Active Miralax 17 gram oral powder packet RxNorm: 273517 1/2 packet PO QHS No Start Date Active multivitamin Tab RxNorm: 1 Tablet(s) PO daily No Start Date Active Tylenol Extra Strength 500 mg tablet RxNorm: 902491 2 Tablet(s) PO as needed No Start Date Active Combigan 0.2 %-0.5 % eye drops RxNorm: 282688 1 Drop(s) OPH BID No Start Date Active 1 drop twice daily left eye Lexapro 5 mg tablet RxNorm: 032470 1 Tablet(s) PO daily No Start Date Active Tatiana Allergy 180 mg tablet RxNorm: 815813 1 Tablet(s) PO daily No Start Date Active Lotemax 0.5 % eye drops,suspension RxNorm: 003228 1 Drop(s) OPH right eye BID No Start Date Active Levoxyl 50 mcg tablet RxNorm: 820733 1 Tablet(s) PO daily No Start Date 01/15/2013 Inactive lisinopril-hydrochlorothiazide 20 mg-25 mg Tab RxNorm: 242954 1 Tablet(s) PO daily No Start Date 08/07/2011 Inactive Metanx 3 mg-35 mg-2 mg tablet RxNorm: 1 Tablet(s) PO daily No Start Date 04/17/2012 Inactive diltiazem CD 120 mg capsule,extended release 24 hr RxNorm: 182639 1 Capsule(s) PO daily No Start Date 09/28/2015 Inactive lisinopril 20 mg tablet RxNorm: 168952 Tablet(s) PO No Start Date Active Lumigan 0.01 % Eye Drops RxNorm: 7976540 1 Drop(s) OPH daily Left eye No Start Date 12/10/2013 Inactive prednisolone acetate 1 % Eye Drops, Susp RxNorm: 5374557 1 Drop(s) OPH BID 1 drop right eye am and hs No Start Date 11/02/2015 Inactive Eliquis 5 mg tablet RxNorm: 9793901 1 Tablet(s) PO BID No Start Date 06/08/2016 Inactive potassium gluconate (bulk) Misc RxNorm: Miscellaneous No Start Date 12/25/2011 Inactive Calcium 600 + D(3) 600 mg (1,500)-200 unit Tab RxNorm: 387434 3 Tablet(s) PO daily No Start Date 2012 Inactive Zyrtec 10 mg tablet RxNorm: 6147180 1 Tablet(s) PO daily No Start Date 08/02/2016 Inactive Synthroid 100 mcg tablet RxNorm: 188165 1 Tablet(s) PO daily No Start Date 09/04/2013 Inactive metoprolol succinate ER 50 mg tablet,extended release 24 hr RxNorm: 891912 1 Tablet(s) PO daily No Start Date 03/23/2016 Inactive Carafate 100 mg/mL oral suspension RxNorm: 600644 2 Teaspoon(s) PO as needed with reflux symptoms No Start Date 06/03/2018 Inactive Metanx 3 mg-35 mg-2 mg tablet RxNorm: 1 Tablet(s) PO daily 2pm No Start Date 11/02/2015 Inactive Lexapro 5 mg tablet RxNorm: 887057 1 Tablet(s) PO daily No Start Date 08/18/2015 Inactive Iron (dried) oral RxNorm: 08325 oral No Start Date 11/02/2015 Inactive timolol 0.5 % Eye Drops RxNorm: 523090 1 Drop(s) OPH daily left eye No Start Date 12/18/2013 Inactive multivitamin Cap RxNorm: 1 Capsule(s) PO daily No Start Date 12/25/2011 Inactive dicyclomine 10 mg Cap RxNorm: 854845 2 Capsule(s) PO daily No Start Date 11/30/2011 Inactive silver sulfadiazine 1 % Topical Cream RxNorm: 205923 TOP apply to affected area with each dressing change No Start Date 12/18/2012 Inactive magnesium oxide 400 mg Tab RxNorm: 526009 1 Tablet(s) PO daily No Start Date 11/02/2015 Inactive Pradaxa 75 mg Cap RxNorm: 5155647 1 Capsule(s) PO BID No Start Date 04/09/2012 Inactive magnesium oxide 400 mg Tab RxNorm: 386941 2 Tablet(s) PO daily magnesium plus zinc No Start Date 12/25/2011 Inactive biotin 1000 mg RxNorm: 1 PO daily No Start Date 12/25/2011 Inactive Synthroid 50 mcg Tab RxNorm: 899591 Tablet(s) PO No Start Date 12/25/2011 Inactive diltiazem ER 180 mg Cap RxNorm: 457971 1 Capsule(s) PO daily No Start Date 12/25/2011 Inactive 1 D 3 1000 iu Oral RxNorm: Oral No Start Date 12/25/2011 Inactive Coumadin 2 mg tablet RxNorm: 486892 Tablet(s) PO No Start Date 04/24/2012 Inactive 5mg tue [id number] mon frid sat sun(has 2mg and 1 mg tab) dicyclomine 20 mg tablet RxNorm: 918282 Tablet(s) PO No Start Date 04/17/2012 Inactive one ac dinner and up to tid prn lactobacillus acidophilus tablet RxNorm: 1 Tablet(s) PO daily No Start Date 11/03/2015 Inactive Eliquis 2.5 mg tablet RxNorm: 3644284 1 Tablet(s) PO BID No Start Date 07/25/2017 Inactive Levoxyl 75 mcg Tab RxNorm: 997770 1 Tablet(s) PO daily No Start Date 10/02/2011 Inactive digoxin 125 mcg tablet RxNorm: 279138 1 Tablet(s) PO daily No Start Date 03/12/2012 Inactive pantoprazole 40 mg tablet,delayed release RxNorm: 766020 1 Tablet(s) PO BID No Start Date 01/04/2016 Inactive cyclobenzaprine 5 mg tablet RxNorm: 292266 1/2 Tablet(s) PO Q8 PRN No Start Date 10/24/2016 Inactive diltiazem 90 mg Tab RxNorm: 402550 1/2 Tablet(s) PO QPM No Start Date 12/25/2011 Inactive Mirapex 1 mg Tab RxNorm: 347606 1 Tablet(s) PO QHS No Start Date 12/25/2011 Inactive Xanax 0.25 mg tablet RxNorm: 812838 1 Tablet(s) PO Q6 PRN No Start Date 11/10/2013 Inactive Premarin 0.625 mg/gram Vaginal Cream RxNorm: 122492 1 Application VAG 1 applicator per vagina 3 times per week No Start Date 02/19/2012 Inactive Synthroid 75 mcg Tab RxNorm: 204037 1 Tablet(s) PO daily No Start Date 04/17/2012 Inactive lisinopril 40 mg Tab RxNorm: 136764 1 Tablet(s) PO daily No Start Date 12/25/2011 Inactive Glucosamine Chondroitin Complex Advanced [id number]-1.65mg Tab RxNorm: 2 Tablet(s) PO daily No Start Date 08/08/2011 Inactive famotidine 20 mg tablet RxNorm: 046141 1 Tablet(s) PO QAM No Start Date 11/02/2015 Inactive cranberry extract 250 mg Tab RxNorm: 309255 2 Tablet(s) PO daily No Start Date 08/08/2011 Inactive Vitamin D3 1,000 unit capsule RxNorm: 197674 1 Capsule(s) PO daily No Start Date 08/31/2015 Inactive aspirin 81 mg Tab, Delayed Release RxNorm: 477059 1 Tablet(s) PO daily No Start Date 08/31/2015 Inactive diltiazem ER 120 mg capsule,extended release RxNorm: 913816 1 Capsule(s) PO daily patient would like 4 months at a time No Start Date 06/02/2013 Inactive omeprazole 20 mg Tab, Delayed Release RxNorm: 561201 2 Tablet(s) PO QHS No Start Date 2012 Inactive lisinopril 10 mg tablet RxNorm: 744247 1/2 Tablet(s) PO daily No Start Date 10/16/2012 Inactive Pred Forte 1 % Eye Drops RxNorm: 757192 1 Drop(s) OPH daily right eye No Start Date 12/25/2013 Inactive calcium carbonate 400 mg Chewable Tab RxNorm: 823954 1 Tablet(s) PO daily No Start Date 08/08/2011 Inactive Vesicare 10 mg tablet RxNorm: 359872 1 Tablet(s) PO QHS No Start Date 02/12/2012 Inactive Symbicort 160 mcg-4.5 mcg/actuation HFA aerosol inhaler RxNorm: 8945716 2 Puff(s) INH BID No Start Date 12/13/2017 Inactive potassium 99 mg tablet RxNorm: 1 Tablet(s) PO QPM No Start Date 12/25/2013 Inactive timolol 0.25 % Eye Drops RxNorm: 429037 1 Drop(s) OPH daily Left eye No Start Date 04/17/2012 Inactive diltiazem ER 90 mg capsule,extended release 12 hr RxNorm: 259041 1/2 Capsule(s) PO QPM No Start Date 04/28/2014 Inactive cyclobenzaprine 5 mg Tab RxNorm: 398707 1/2-1 Tablet(s) PO Q8 PRN No Start Date 12/25/2011 Inactive 1/2 - 1 tab q 8hrs prn muscle spasms Medication Administered Medication Codes Instructions Start Date Status Influenza Virus Vaccine 0.5 mL RxNorm: 04/23/2013 No longer Active Rocephin 500 mg Solution for Injection RxNorm: 1876758 11/23/2011 No longer Active Immunizations Vaccine Codes [...] 04/18/2012 completed Assessments Condition Codes Effective Dates Pain in left hand ICD-10: M79.642 ICD-9: 729.5 10/09/2018 Raynaud's syndrome without gangrene ICD-10: I73.00 ICD-9: 443.0 10/09/2018 Pain in right hand ICD-10: M79.641 ICD-9: 729.5 10/09/2018 Other allergic rhinitis ICD-10: J30.89 ICD-9: 477.8 09/12/2018 Cough ICD-10: R05 ICD-9: 786.2 09/12/2018 Acute laryngopharyngitis ICD-10: J06.0 ICD-9: 465.0 09/12/2018 Chronic atrial fibrillation ICD-10: I48.2 ICD-9: 427.31 08/14/2018 Pain in right toe(s) ICD-10: M79.674 ICD-9: 729.5 08/14/2018 Sebaceous cyst ICD-10: L72.3 ICD-9: 706.2 07/26/2018 Encounter for screening mammogram for malignant neoplasm of breast ICD-10: Z12.31 ICD-9: V76.12 06/08/2018 Gastro-esophageal reflux disease without esophagitis ICD-10: K21.9 ICD-9: 530.81 06/04/2018 Atrophy of thyroid (acquired) ICD-10: E03.4 ICD-9: 244.8 06/04/2018 Essential (primary) hypertension ICD-10: I10 ICD-9: 401.1 06/04/2018 Essential (primary) hypertension ICD-10: I10 ICD-9: 401.9 01/31/2018 Other intermediate (current) drug therapy ICD-10: Z79.899 ICD-9: V58.83 [...] hemorrhoids ICD-10: K64.0 ICD-9: 455.6 03/24/2016 Other buttermaker (current) drug therapy ICD-10: Z79.899 ICD-9: V58.69 [...] Visit Reason For Visit Effective Dates Notes blood pressure followup 10/09/2018 cough 09/12/2018 skin [...] Ord62 ANION GAP 12 09/25/2018 Comp Metabolic Yyi672 NA 130 mEq/L 09/12/2018 Comp Metabolic Yjq851 K 4.2 mEq/L 09/12/2018 Comp Metabolic Kib864 CL 98 mEq/L 09/12/2018 Comp Metabolic Nle276 CO2 23.0 mEq/L 09/12/2018 Comp Metabolic Lqr176 ANION GAP 13 09/12/2018 Comp Metabolic Mwl201 GLUCOSE 129 mg/dL 09/12/2018 Comp Metabolic Wje768 Creat 1.0 mg/dL 09/12/2018 Comp Metabolic Tcb505 eGFR 58 ml/min/1.73m2 09/12/2018 Comp Metabolic Ypa998 BUN 28 mg/dL 09/12/2018 Comp Metabolic Jhz066 B/C Ratio 28.9 Ratio 09/12/2018 Comp Metabolic Xjv959 CALCIUM 9.1 mg/dL 09/12/2018 Comp Metabolic Qni171 ALK PHOS 59 U/L 09/12/2018 Comp Metabolic Foq408 AST(SGOT) 21 U/L 09/12/2018 Comp Metabolic Rco519 ALT(SGPT) 19 U/L 09/12/2018 Comp Metabolic Mwu981 BILI T 0.8 mg/dL 09/12/2018 Comp Metabolic Ndv977 ALBUMIN 3.9 g/dL 09/12/2018 Comp Metabolic Uos141 TPRO 6.5 g/dL 09/12/2018 Comp Metabolic Oke536 GLOB 2.6 g/dL 09/12/2018 Comp Metabolic Odb229 A/G Ratio 1.5 Ratio 09/12/2018 Comp Metabolic Uez261 Osmo 268 mOsmo 09/12/2018 Tsh Ord6 TSH (3rd IS) 12.84 uIU/mL 09/12/2018 Influenza A+B Aqg301 Influ A+B Negative 09/12/2018 Cbc With Differential [...] 12.3 % 09/12/2018 Cbc With Differential Ord2 [place]% 12.0 % 09/12/2018 Cbc With Differential Ord2 [...] 0.85 K/ul 09/12/2018 Cbc With Differential Ord2 [place] ABS# 0.8 K/ul 09/12/2018 Cbc With Differential Ord2 Eos ABS# 0.1 K/ul 09/12/2018 Cbc With Differential Ord2 Baso ABS# 0.0 K/ul 09/12/2018 Free T4 Mqv522 FREE T4 1.10 ng/dL 09/12/2018 Free T4 Iwk850 FREE T4 1.19 ng/dL 05/08/2018 Digoxin Ord9 DIGOXIN 0.6 NG/ML 05/08/2018 Tsh Ord6 TSH (3rd IS) 10.58 uIU/mL 05/08/2018 Tsh Ord6 TSH (3rd IS) 1.07 uIU/mL 01/31/2018 Free T4 Ivk294 FREE T4 1.63 ng/dL 01/31/2018 Digoxin Ord9 DIGOXIN 0.8 NG/ML 01/31/2018 C RAP A SC [id number] Strep A Negative 11/21/2016 Thyroid Antibodies 832144 THYROGLOBULIN ANTIBODY . 11/04/2016 Thyroid Antibodies 798421 THYROGLOBULIN ANTIBODY 919 IU/mL 11/04/2016 Thyroid Antibodies 272265 THYROID PEROXIDASE (TPO) AB . 11/04/2016 Thyroid Antibodies 603626 THYROID PEROXIDASE (TPO) AB 10 IU/mL 11/04/2016 Total T3 Ord42 TT3 0.64 ng/ml 11/03/2016 Free T4 Brk608 FREE T4 1.39 ng/dL 11/02/2016 Tsh Ord6 [...] Differential Ord2 RDW 13.8 % 05/26/2015 Pt Gux3621 PT 25.0 seconds 05/26/2015 Pt Xxi1332 INR 2.4 05/26/2015 Pt Csj7324 Low Intensity - 1.5-2.0 05/26/2015 Pt Pjo4184 Mod intensity - 2.0-3.0 05/26/2015 Pt Hty1370 Hi intensity - 3.0-4.0 05/26/2015 Uric Acid [...] Digoxin Ord9 DIGOXIN 0.6 NG/ML 05/06/2015 Pt Abd1774 PT 23.3 seconds 05/06/2015 Pt Xze3835 INR 2.1 05/06/2015 Pt Tvi2037 Low Intensity - 1.5-2.0 05/06/2015 Pt Wci3496 Mod intensity - 2.0-3.0 05/06/2015 Pt Xov1339 Hi intensity - 3.0-4.0 05/06/2015 Free T4 Fnt001 FREE T4 1.65 ng/dL 05/06/2015 Comp Metabolic Tny616 NA 132 mEq/L 05/06/2015 Comp Metabolic Dfe748 K 4.1 mEq/L 05/06/2015 Comp Metabolic Opf288 CL 98 mEq/L 05/06/2015 Comp Metabolic Svd549 CO2 27.0 mEq/L 05/06/2015 Comp Metabolic Gsm423 ANION GAP 11 05/06/2015 Comp Metabolic Hyp554 GLUCOSE 71 mg/dL 05/06/2015 Comp Metabolic Sto943 Creat 0.7 mg/dL 05/06/2015 Comp Metabolic Efb030 eGFR 82 ml/min/1.73m2 05/06/2015 Comp Metabolic Nqc064 BUN 16 mg/dL 05/06/2015 Comp Metabolic Vzv629 B/C Ratio 22.2 Ratio 05/06/2015 Comp Metabolic Tuy331 CALCIUM 9.4 mg/dL 05/06/2015 Comp Metabolic Oew833 ALK PHOS 60 U/L 05/06/2015 Comp Metabolic Ljj907 AST(SGOT) 22 U/L 05/06/2015 Comp Metabolic Poe500 ALT(SGPT) 24 U/L 05/06/2015 Comp Metabolic Wut760 BILI T 0.8 mg/dL 05/06/2015 Comp Metabolic Vbs811 ALBUMIN 4.3 g/dL 05/06/2015 Comp Metabolic Bee766 TPRO 7.6 g/dL 05/06/2015 Comp Metabolic Uoi498 GLOB 3.3 g/dL 05/06/2015 Comp Metabolic Zbd952 A/G Ratio 1.3 Ratio 05/06/2015 Comp Metabolic Olp412 Osmo 264 mOsmo 05/06/2015 DIGOXIN 2596141 DIGOXIN 1.1 NG/ML 05/15/2013 PT/MC 8372717 PRO TIME 21.7 SEC 05/15/2013 PT/MC 8693838 INR MCMC 2.0 05/15/2013 CHEM 14 8015171 AST 24 U/L 04/23/2013 CHEM 14 5127559 ALT 31 IU/L 04/23/2013 CHEM 14 2822124 BUN 13 MG/DL 04/23/2013 CHEM 14 1416952 ALBUMIN 4.1 GM/DL 04/23/2013 CHEM 14 1215528 CHLORIDE 103 MMOL/L 04/23/2013 CHEM 14 9432088 BILI TOT 0.5 MG/DL 04/23/2013 CHEM 14 9438171 ALK PHOS 44 U/L 04/23/2013 CHEM 14 7235568 SODIUM 137 MMOL/L 04/23/2013 CHEM 14 8529811 CREATININE 0.61 MG/DL 04/23/2013 CHEM 14 8731825 CALCIUM 9.5 MG/DL 04/23/2013 CHEM 14 4766859 POTASSIUM 4.0 MMOL/L 04/23/2013 CHEM 14 7636233 PROT TOT 6.6 GM/DL 04/23/2013 CHEM 14 5110820 GLUCOSE 99 MG/DL 04/23/2013 CHEM 14 0935249 BICARB 27 MMOL/L 04/23/2013 CHEM 14 5248641 ANION GAP 7 MEQ/L 04/23/2013 GFR CALC 4742078 GFR AA >60 ML/MIN 04/23/2013 GFR CALC 6176936 GFR NON-AA >60 ML/MIN 04/23/2013 TSH 7636678 TSH 4.204 uIU/ML 04/23/2013 CBC 1580861 WBC 6.7 10e9/L 04/23/2013 CBC 5275936 RBC 4.19 10e12/L 04/23/2013 CBC 1833363 HGB 13.2 g/dL 04/23/2013 CBC 2068792 HCT DET 39.2 % 04/23/2013 CBC 1201995 MCV 93.6 fL 04/23/2013 CBC 4126675 MCH 31.5 pg 04/23/2013 CBC 3037445 MCHC 33.7 g/dL 04/23/2013 CBC 2638545 PLT 202 10e9/L 04/23/2013 CBC 9027885 MPV 11.4 fL 04/23/2013 CBC 6921776 YANIRA % 70.5 % 04/23/2013 CBC 3268786 LY % 19.6 % 04/23/2013 CBC 4791321 MON % 8.2 % 04/23/2013 CBC 0045176 EOS % 1.6 % 04/23/2013 CBC 1300931 BASO % 0.1 % 04/23/2013 CBC 4621452 RDW 13.7 % 04/23/2013 CBC 5775343 ABS YANIRA 4.72 10e9/L 04/23/2013 CBC 3016680 ABS LYMPH 1.31 10e9/L 04/23/2013 CBC 5482712 ABS MONO 0.55 10e9/L 04/23/2013 CBC 0931319 ABS EOS 0.11 10e9/L 04/23/2013 CBC 2071194 ABS BASO 0.01 10e9/L 04/23/2013 CBC 4582504 RDW-SD 45.7 fL 04/23/2013 PT/MC 4132402 PRO TIME 13.4 SEC 12/17/2012 PT/MC 5828277 INR MCMC 1.0 12/17/2012 PT/MC 2724173 PRO TIME 16.6 SEC 12/14/2012 PT/MC 6788502 INR MCMC 1.4 12/14/2012 PT/MC 6240837 PRO TIME 27.2 SEC 12/11/2012 PT/MC 1273535 INR MCMC 2.6 12/11/2012 DIGOXIN 2601150 DIGOXIN 2.1 NG/ML 03/08/2012 GFR CALC 6532848 GFR AA >60 ML/MIN 03/08/2012 GFR CALC 4035301 GFR NON-AA >60 ML/MIN 03/08/2012 CHEM 14 1883677 AST 16 U/L 03/08/2012 CHEM 14 7401155 ALT 14 IU/L 03/08/2012 CHEM 14 5260250 BUN 10 MG/DL 03/08/2012 CHEM 14 3812500 ALBUMIN 4.2 GM/DL 03/08/2012 CHEM 14 3722911 CHLORIDE 100 MMOL/L 03/08/2012 CHEM 14 7873417 BILI TOT 0.5 MG/DL 03/08/2012 CHEM 14 1103503 ALK PHOS 59 U/L 03/08/2012 CHEM 14 0843432 SODIUM 136 MMOL/L 03/08/2012 CHEM 14 8824048 CREATININE 0.65 MG/DL 03/08/2012 CHEM 14 6827474 CALCIUM 9.4 MG/DL 03/08/2012 CHEM 14 5756416 POTASSIUM 3.9 MMOL/L 03/08/2012 CHEM 14 8048488 PROT TOT 6.7 GM/DL 03/08/2012 CHEM 14 7077135 GLUCOSE 90 MG/DL 03/08/2012 CHEM 14 7878281 BICARB 30 MMOL/L 03/08/2012 CHEM 14 4771735 ANION GAP 6 MEQ/L 03/08/2012 CHEM 14 6683625 AST 16 U/L 11/23/2011 CHEM 14 9700626 ALT 14 IU/L 11/23/2011 CHEM 14 4567209 BUN 11 MG/DL 11/23/2011 CHEM 14 9116667 ALBUMIN 4.1 GM/DL 11/23/2011 CHEM 14 8361093 CHLORIDE 100 MMOL/L 11/23/2011 CHEM 14 2731626 BILI TOT 0.5 MG/DL 11/23/2011 CHEM 14 5763686 ALK PHOS 50 U/L 11/23/2011 CHEM 14 4539137 SODIUM 135 MMOL/L 11/23/2011 CHEM 14 4951728 CREATININE 0.57 MG/DL 11/23/2011 CHEM 14 3664590 CALCIUM 9.1 MG/DL 11/23/2011 CHEM 14 4182563 POTASSIUM 4.5 MMOL/L 11/23/2011 CHEM 14 4802271 PROT TOT 6.5 GM/DL 11/23/2011 CHEM 14 3079279 GLUCOSE 89 MG/DL 11/23/2011 CHEM 14 8198894 BICARB 28 MMOL/L 11/23/2011 CHEM 14 9711008 ANION GAP 7 MEQ/L 11/23/2011 GFR CALC 6291542 GFR AA >60 ML/MIN 11/23/2011 GFR CALC 0397118 GFR NON-AA >60 ML/MIN 11/23/2011 CBC 4934147 WBC 5.1 10e9/L 11/23/2011 CBC 8325358 RBC 4.06 10e12/L 11/23/2011 CBC 7138910 HGB 12.5 g/dL 11/23/2011 CBC 6491211 HCT DET 37.3 % 11/23/2011 CBC 5285109 MCV 91.9 fL 11/23/2011 CBC 2619898 MCH 30.8 pg 11/23/2011 CBC 3181204 MCHC 33.5 g/dL 11/23/2011 CBC 5900929 PLT 222 10e9/L 11/23/2011 CBC 7692486 MPV 10.8 fL 11/23/2011 CBC 6954627 YANIRA % 64.2 % 11/23/2011 CBC 9324985 LY % 22.3 % 11/23/2011 CBC 9987599 MON % 11.3 % 11/23/2011 CBC 6157581 EOS % 1.8 % 11/23/2011 CBC 3392560 BASO % 0.4 % 11/23/2011 CBC 1113313 RDW 13.6 % 11/23/2011 CBC 5916803 ABS YANIRA 3.27 10e9/L 11/23/2011 CBC 0790479 ABS LYMPH 1.14 10e9/L 11/23/2011 CBC 8375700 ABS MONO 0.58 10e9/L 11/23/2011 CBC 7549777 ABS EOS 0.09 10e9/L 11/23/2011 CBC 8533989 ABS BASO 0.02 10e9/L 11/23/2011 CBC 2216704 RDW-SD 44.5 fL 11/23/2011 UA 58282 Specific [place] 1.005 03/04/2011 UA 39597 PH 6 03/04/2011 UA 21954 GLUCOSE N 03/04/2011 UA 57828 Protein N 03/04/2011 UA 49577 Blood ++ 03/04/2011 UA 26390 Bilirubin N 03/04/2011 UA 73710 Ketones N 03/04/2011 UA 43299 Urobilinogen N 03/04/2011 UA 16593 Nitrite N 03/04/2011 UA 89266 Leukocytes N 03/04/2011 URINALYSIS NONAUTO W/O SCOPE 79042 Specific [place] 1.010 DateTime(Free Text in Aprima) URINALYSIS NONAUTO W/O SCOPE 85039 PH 6.5 DateTime(Free Text in Aprima) URINALYSIS NONAUTO W/O SCOPE 63464 GLUCOSE neg DateTime(Free Text in Aprima) URINALYSIS NONAUTO W/O SCOPE 84869 Protein neg DateTime(Free Text in Aprima) URINALYSIS NONAUTO W/O SCOPE 21422 Blood 3+ DateTime(Free Text in Aprima) URINALYSIS NONAUTO W/O SCOPE 72648 Bilirubin neg DateTime(Free Text in Aprima) URINALYSIS NONAUTO W/O SCOPE 57848 Ketones neg DateTime(Free Text in Aprima) URINALYSIS NONAUTO W/O SCOPE 39096 Urobilinogen neg DateTime(Free Text in Aprima) URINALYSIS NONAUTO W/O SCOPE 08825 Nitrite neg DateTime(Free Text in Aprima) URINALYSIS NONAUTO W/O SCOPE 76383 Leukocytes neg DateTime(Free Text in Aprima) URINALYSIS NONAUTO W/O SCOPE 90983 Specific [place] 1.010 DateTime(Free Text in Aprima) URINALYSIS NONAUTO W/O SCOPE 18924 PH 5 DateTime(Free Text in Aprima) URINALYSIS NONAUTO W/O SCOPE 65966 GLUCOSE neg DateTime(Free Text in Aprima) URINALYSIS NONAUTO W/O SCOPE 61974 Protein neg DateTime(Free Text in Aprima) URINALYSIS NONAUTO W/O SCOPE 71822 Blood 3+ DateTime(Free Text in Aprima) URINALYSIS NONAUTO W/O SCOPE 09562 Bilirubin neg DateTime(Free Text in Aprima) URINALYSIS NONAUTO W/O SCOPE 76226 Ketones neg DateTime(Free Text in Aprima) URINALYSIS NONAUTO W/O SCOPE 89757 Urobilinogen neg DateTime(Free Text in Aprima) URINALYSIS NONAUTO W/O SCOPE 55925 Nitrite neg DateTime(Free Text in Aprima) URINALYSIS NONAUTO W/O SCOPE 54496 Leukocytes neg DateTime(Free Text in Aprima) URINALYSIS NONAUTO W/O SCOPE 53392 Specific [place] 1.005 DateTime(Free Text in Aprima) URINALYSIS NONAUTO W/O SCOPE 89870 PH 8.5 DateTime(Free Text in Aprima) URINALYSIS NONAUTO W/O SCOPE 52471 GLUCOSE neg DateTime(Free Text in Aprima) URINALYSIS NONAUTO W/O SCOPE 31964 Protein neg DateTime(Free Text in Aprima) URINALYSIS NONAUTO W/O SCOPE 70765 Blood 1+ DateTime(Free Text in Aprima) URINALYSIS NONAUTO W/O SCOPE 53562 Bilirubin neg DateTime(Free Text in Aprima) URINALYSIS NONAUTO W/O SCOPE 86028 Ketones neg DateTime(Free Text in Aprima) URINALYSIS NONAUTO W/O SCOPE 86877 Urobilinogen neg DateTime(Free Text in Aprima) URINALYSIS NONAUTO W/O SCOPE 42074 Nitrite neg DateTime(Free Text in Aprima) URINALYSIS NONAUTO W/O SCOPE 86475 Leukocytes neg DateTime(Free Text in Aprima) URINALYSIS NONAUTO W/O SCOPE 73753 Specific [place] 1.005 DateTime(Free Text in Aprima) URINALYSIS NONAUTO W/O SCOPE 48823 PH 7 DateTime(Free Text in Aprima) URINALYSIS NONAUTO W/O SCOPE 03338 GLUCOSE neg DateTime(Free Text in Aprima) URINALYSIS NONAUTO W/O SCOPE 37786 Protein neg DateTime(Free Text in Aprima) URINALYSIS NONAUTO W/O SCOPE 09378 Blood large DateTime(Free Text in Aprima) URINALYSIS NONAUTO W/O SCOPE 10785 Bilirubin neg DateTime(Free Text in Aprima) URINALYSIS NONAUTO W/O SCOPE 70882 Ketones neg DateTime(Free Text in Aprima) URINALYSIS NONAUTO W/O SCOPE 50216 Urobilinogen 0.2 DateTime(Free Text in Aprima) URINALYSIS NONAUTO W/O SCOPE 04877 Nitrite neg DateTime(Free Text in Aprima) URINALYSIS NONAUTO W/O SCOPE 33614 Leukocytes neg DateTime(Free Text in Aprima) URINALYSIS NONAUTO W/O SCOPE 89033 Specific [place] 1.005 DateTime(Free Text in Aprima) URINALYSIS NONAUTO W/O SCOPE 37703 PH 7.5 DateTime(Free Text in Aprima) URINALYSIS NONAUTO W/O SCOPE 15752 GLUCOSE DateTime(Free Text in Aprima) URINALYSIS NONAUTO W/O SCOPE 66278 Protein trace DateTime(Free Text in Aprima) URINALYSIS NONAUTO W/O SCOPE 10861 Blood 4+ DateTime(Free Text in Apr) URINALYSIS NONAUTO W/O SCOPE 55962 Bilirubin DateTime(Free Text in Apr) URINALYSIS NONAUTO W/O SCOPE 78467 Ketones DateTime(Free Text in Aprima) URINALYSIS NONAUTO W/O SCOPE 85424 Urobilinogen DateTime(Free Text in Aprima) URINALYSIS NONAUTO W/O SCOPE 10183 Nitrite DateTime(Free Text in Aprima) URINALYSIS NONAUTO W/O SCOPE 65228 Leukocytes trace DateTime(Free Text in Apr) Review of Systems System Result Effective Dates Constitutional No recent illness 10/09/2018 Constitutional No [...] Effective Dates Notes Full Exam - General 1995 Constitutional general [...] lips 01/23/2017 None Full Exam - General 1995 Ears/Nose/Throat oral cavity/pharynx/larynx Overall: oral mucosa clear [...] contact 01/19/2017 None Full Exam - General 1995 Psychiatric speech Overall: normal quality, no aphasia [...] FLU VACC PRSV FREE INC ANTIG CPT-4: 81829 03/27/2017 PPPS, SUBSEQ VISIT CPT- 4: G0439 01/23/2017 URINALYSIS NONAUTO W/O SCOPE CPT-4: 97606 05/17/2016 ADMIN INFLUENZA VIRUS VAC CPT-4: G0008 03/24/2016 FLU VACC PRSV FREE INC ANTIG CPT-4: 54055 03/24/2016 ADMIN PNEUMOCOCCAL VACCINE SNOMED CT: 79614517 CPT-4: G0009 05/13/2015 PNEUMOCOCCAL VACC [address]: 894[address]336 CPT-4: 91001 05/13/2015 Pneumococcal Polysaccharide Vaccine, 23-Valent, Ad Assigned to/Mela Bledsoe CPT-4: 40653Jqrilhb 07/11/2014 ADMIN PNEUMOCOCCAL VACCINE SNOMED CT: 88366635 CPT-4: G0009 07/11/2014 URINALYSIS NONAUTO W/O SCOPE CPT-4: 00027 05/14/2014 URINALYSIS NONAUTO W/O SCOPE CPT-4: 28551 05/06/2014 URINALYSIS NONAUTO W/O SCOPE CPT-4: 15550 04/29/2014 ADMIN INFLUENZA VIRUS VAC CPT-4: G0008 03/20/2014 FLU VAC NO PRSV 4 SCOTT 3 YRS+ Assigned to/Rakan Mela CPT-4: [id number] 03/20/2014 URINALYSIS NONAUTO W/O SCOPE CPT-4: 64676 07/29/2013 URINALYSIS NONAUTO W/O SCOPE CPT-4: 25852 07/01/2013 URINALYSIS NONAUTO W/O SCOPE CPT-4: 81792 06/20/2013 ROUTINE VENIPUNCTURE CPT- 4: 52696 05/15/2013 ROUTINE VENIPUNCTURE CPT- 4: 72925 04/23/2013 ADMIN INFLUENZA VIRUS VAC CPT-4: G0008 04/23/2013 FLULAVAL VACC, 3 YRS & >, IM CPT-4: Q2036 04/23/2013 ROUTINE VENIPUNCTURE CPT- 4: 07960 12/17/2012 ROUTINE VENIPUNCTURE CPT- 4: 67000 12/14/2012 ROUTINE VENIPUNCTURE CPT- 4: 06192 12/11/2012 PRESCRIP TRANSMIT VIA ERX SY CPT-4: G8553 12/11/2012 PRESCRIP TRANSMIT VIA ERX SY CPT-4: G8553 10/30/2012 URINALYSIS NONAUTO W/O SCOPE CPT-4: 03849 09/13/2012 ADMIN INFLUENZA VIRUS VAC CPT-4: G0008 04/18/2012 FLULAVAL VACC, 3 YRS & >, IM CPT-4: Q2036 04/18/2012 URINALYSIS NONAUTO W/O SCOPE CPT-4: 85173 03/13/2012 ROUTINE VENIPUNCTURE CPT- 4: 30870 03/08/2012 URINALYSIS NONAUTO W/O SCOPE CPT-4: 85371 02/13/2012 PRESCRIP TRANSMIT VIA ERX SY CPT-4: G8553 02/13/2012 ROCEPHIN, PER 250 MG CPT- 4: J0696 11/23/2011 ROUTINE VENIPUNCTURE CPT- 4: 01297 11/23/2011 URINALYSIS NONAUTO W/O SCOPE CPT-4: 63909 11/23/2011 PRESCRIP TRANSMIT VIA ERX SY CPT-4: G8553 11/23/2011 REMOVE IMPACTED EAR WAX UNI CPT-4: 05589 10/17/2011 PRESCRIP TRANSMIT VIA ERX SY CPT-4: G8553 10/03/2011 PRESCRIP TRANSMIT VIA ERX SY CPT-4: G8553 08/08/2011 URINALYSIS NONAUTO W/O SCOPE CPT-4: 00572 03/15/2011 URINALYSIS NONAUTO W/O SCOPE CPT-4: 11129 03/04/2011 THER/PROPH/DIAG INJ SC/IM CPT-4: 15327 03/04/2011 ROCEPHIN, PER 250 MG CPT- 4: J0696 03/04/2011 Vital Signs Date Vital 10/09/2018 Blood Pressure 1: 126/60 Code: 8480-6 BMI: 19.9 Code: 07916-9 Heart Rate 1: 66 bpm Height: 5' SpO2: 96% Weight: 102 lbs 09/12/2018 Blood Pressure 1: 156/72 Code: 8480-6 BMI: 19.9 Code: 44106-3 Heart Rate 1: 68 bpm Height: 5' Temperature: 36.6 (C) / 97.8 (F) Weight: 102 lbs 08/14/2018 Blood Pressure 1: 136/68 Code: 8480-6 BMI: 21.1 Code: 89650-5 Heart Rate 1: 92 bpm Height: 5' Weight: 108 lbs 07/26/2018 Blood Pressure 1: 128/76 Code: 8480-6 BMI: 21.1 Code: 73219-0 Heart Rate 1: 88 bpm Height: 5' Weight: 108 lbs 06/04/2018 Blood Pressure 1: 124/72 Code: 8480-6 BMI: 21.3 Code: 60080-7 Heart Rate 1: 98 bpm Height: 5' Weight: 109 lbs 01/31/2018 Blood Pressure 1: 116/68 Code: 8480-6 BMI: 21.1 Code: 37013-1 Heart Rate 1: 89 bpm Height: 5' SpO2: 98% Weight: 108 lbs 01/17/2018 Blood Pressure 1: 134/74 Code: 8480-6 BMI: 21.3 Code: 09317-2 Heart Rate 1: 74 bpm Height: 5' SpO2: 96% Waist Measure (cm): 71 cm Weight: 109 lbs 12/14/2017 Blood Pressure 1: 150/78 Code: 8480-6 BMI: 21.5 Code: 79407-5 Heart Rate 1: 77 bpm Height: 5' SpO2: 98% Temperature: 36.7 (C) / 98.1 (F) Weight: 110 lbs 12/07/2017 Blood Pressure 1: 134/70 Code: 8480-6 Heart Rate 1: 76 bpm Height: SpO2: 98% Temperature: 36.8 (C) / 98.2 (F) Weight: 11/14/2017 Blood Pressure 1: 152/84 Code: 8480-6 BMI: 21.9 Code: 20821-2 Heart Rate 1: 95 bpm Height: 5' SpO2: 93% Weight: 112 lbs 03/27/2017 Blood Pressure 1: 122/70 Code: 8480-6 BMI: 21.3 Code: 27010-6 Heart Rate 1: 75 bpm Height: 5' Weight: 109 lbs 01/23/2017 BMI: 21.5 Code: 40624-3 Height: 5' Weight: 110 lbs 01/19/2017 Blood Pressure 1: 112/60 Code: 8480-6 BMI: 21.5 Code: 86065-1 Heart Rate 1: 54 bpm Height: 5' SpO2: 97% Weight: 110 lbs 11/29/2016 Blood Pressure 1: 126/68 Code: 8480-6 Height: 5' Weight: 11/23/2016 Blood Pressure 1: 130/72 Code: 8480-6 BMI: 21.9 Code: 01570-8 Heart Rate 1: 48 bpm Height: 5' SpO2: 97% Temperature: 36.7 (C) / 98.0 (F) Weight: 112 lbs 11/21/2016 Blood Pressure 1: 134/76 Code: 8480-6 BMI: 21.9 Code: 14862-0 Heart Rate 1: 41 bpm Height: 5' SpO2: 94% Temperature: 36.9 (C) / 98.4 (F) Weight: 112 lbs 11/08/2016 Blood Pressure 1: 126/74 Code: 8480-6 Heart Rate 1: 82 bpm Height: 5' SpO2: 94% Weight: 11/02/2016 Blood Pressure 1: 112/66 Code: 8480-6 Heart Rate 1: 72 bpm Height: 5' SpO2: 95% Weight: 10/27/2016 Blood Pressure 1: 130/64 Code: 8480-6 BMI: 21.7 Code: 32076-9 Heart Rate 1: 81 bpm Height: 5' SpO2: 96% Weight: 111 lbs 08/31/2016 Blood Pressure 1: 132/72 Code: 8480-6 BMI: 22.5 Code: 19955-8 Heart Rate 1: 66 bpm Height: 5' Weight: 115 lbs 07/27/2016 Blood Pressure 1: 166/74 Code: 8480-6 BMI: 23.2 Code: 71280-4 Heart Rate 1: 48 bpm Height: 5' SpO2: 90% Temperature: 36.8 (C) / 98.2 (F) Weight: 119 lbs 06/23/2016 Blood Pressure 1: 128/70 Code: 8480-6 BMI: 22.3 Code: 49146-4 Heart Rate 1: 75 bpm Height: 5' SpO2: 97% Weight: 114 lbs 06/09/2016 BMI: 22.7 Code: 25645-4 Heart Rate 1: 73 bpm Height: 5' SpO2: 97% Weight: 116 lbs 05/25/2016 Blood Pressure 1: 138/62 Code: 8480-6 BMI: 22.8 Code: 49119-2 Heart Rate 1: 76 bpm Height: 5' Weight: 117 lbs 05/17/2016 Blood Pressure 1: 116/70 Code: 8480-6 BMI: 22.8 Code: 73118-5 Heart Rate 1: 74 bpm Height: 5' SpO2: 94% Weight: 117 lbs 03/24/2016 Blood Pressure 1: 154/78 Code: 8480-6 BMI: 22.5 Code: 29413-6 Heart Rate 1: 78 bpm Height: 5' SpO2: 97% Weight: 115 lbs 02/02/2016 Blood Pressure 1: 132/70 Code: 8480-6 BMI: 22.3 Code: 45078-8 Heart Rate 1: 74 bpm Height: 5' SpO2: 94% Weight: 114 lbs 2016 Blood Pressure 1: 120/62 Code: 8480-6 BMI: 22.0 Code: 72537-8 Heart Rate 1: 68 bpm Height: 5' Weight: 112 lbs 8 oz 12/21/2015 Blood Pressure 1: 122/82 Code: 8480-6 BMI: 21.9 Code: 09171-3 Heart Rate 1: 83 bpm Height: 5' SpO2: 93% Temperature: 37.1 (C) / 98.7 (F) Weight: 112 lbs 11/03/2015 Blood Pressure 1: 122/72 Code: 8480-6 BMI: 22.4 Code: 47676-8 Heart Rate 1: 62 bpm Height: 5' Weight: 114 lbs 8 oz 10/19/2015 Blood Pressure 1: 138/62 Code: 8480-6 BMI: 21.1 Code: 87053-6 Heart Rate 1: 79 bpm Height: 5' Weight: 108 lbs 10/13/2015 Blood Pressure 1: 120/62 Code: 8480-6 BMI: 21.0 Code: 77535-1 Heart Rate 1: 76 bpm Height: 5' SpO2: 98% Weight: 108 lbs 09/29/2015 Blood Pressure 1: 130/70 Code: 8480-6 BMI: 20.2 Code: 38635-0 Heart Rate 1: 72 bpm Height: 5' Weight: 104 lbs 09/15/2015 Blood Pressure 1: 128/78 Code: 8480-6 BMI: 19.9 Code: 75537-1 Heart Rate 1: 72 bpm Height: 5' Weight: 102 lbs 8 oz 09/01/2015 Blood Pressure 1: 128/68 Code: 8480-6 BMI: 19.8 Code: 03355-2 Height: 5' Weight: 102 lbs 05/26/2015 Blood Pressure 1: 140/68 Code: 8480-6 BMI: 19.0 Code: 94767-4 Heart Rate 1: 70 bpm Height: 5' Weight: 98 lbs 05/21/2015 Blood Pressure 1: 140/78 Code: 8480-6 BMI: 19.2 Code: 55594-3 Heart Rate 1: 85 bpm Height: 5' SpO2: 95% Weight: 99 lbs 05/07/2015 Blood Pressure 1: 140/82 Code: 8480-6 BMI: 19.0 Code: 91682-8 Heart Rate 1: 76 bpm Height: 5' Weight: 98 lbs 03/23/2015 Blood Pressure 1: 142/60 Code: 8480-6 BMI: 18.6 Code: 89336-9 Heart Rate 1: 52 bpm Height: 5' Weight: 96 lbs 03/09/2015 Blood Pressure 1: 138/74 Code: 8480-6 BMI: 18.8 Code: 48691-2 Heart Rate 1: 60 bpm Height: 5' Weight: 97 lbs 10/30/2014 Blood Pressure 1: 112/82 Code: 8480-6 BMI: 19.0 Code: 24140-2 Heart Rate 1: 64 bpm Height: 5' Weight: 98 lbs 07/11/2014 Blood Pressure 1: 146/70 Code: 8480-6 BMI: 18.8 Code: 43145-8 Heart Rate 1: 68 bpm Height: 5' Weight: 97 lbs 05/20/2014 Blood Pressure 1: 142/76 Code: 8480-6 BMI: 18.6 Code: 26688-6 Heart Rate 1: 78 bpm Height: 5' Weight: 96 lbs 04/29/2014 Blood Pressure 1: 138/62 Code: 8480-6 BMI: 18.3 Code: 27789-5 Heart Rate 1: 80 bpm Height: 5' Weight: 94 lbs 8 oz 03/20/2014 Blood Pressure 1: 142/68 Code: 8480-6 BMI: 18.6 Code: 88360-8 Heart Rate 1: 96 bpm Height: 5' Weight: 96 lbs 03/05/2014 Blood Pressure 1: 122/72 Code: 8480-6 BMI: 18.8 Code: 90043-1 Heart Rate 1: 82 bpm Height: 5' SpO2: 97% Weight: 97 lbs 01/29/2014 Blood Pressure 1: 124/78 Code: 8480-6 BMI: 18.8 Code: 78671-3 Heart Rate 1: 60 bpm Height: 5' Weight: 97 lbs 01/14/2014 Blood Pressure 1: 120/58 Code: 8480-6 BMI: 19.2 Code: 51647-7 Heart Rate 1: 56 bpm Height: 5' Temperature: 36.9 (C) / 98.4 (F) Weight: 99 lbs 12/25/2013 Blood Pressure 1: 118/78 Code: 8480-6 BMI: 19.2 Code: 72798-2 Heart Rate 1: 68 bpm Height: 5' Weight: 99 lbs 11/27/2013 Blood Pressure 1: 102/68 Code: 8480-6 BMI: 19.4 Code: 33599-4 Heart Rate 1: 56 bpm Height: 5' Weight: 100 lbs 09/12/2013 Blood Pressure 1: 142/62 Code: 8480-6 BMI: 19.7 Code: 58998-3 Heart Rate 1: 72 bpm Height: 5'1" Weight: 104 lbs 08/15/2013 Blood Pressure 1: 152/92 Code: 8480-6 Heart Rate 1: 96 bpm Weight: 102 lbs 08/01/2013 Blood Pressure 1: 122/68 Code: 8480-6 BMI: 19.1 Code: 96021-3 Heart Rate 1: 68 bpm Height: 5'1" Weight: 101 lbs 07/01/2013 Blood Pressure 1: 130/72 Code: 8480-6 BMI: 19.5 Code: 90965-4 Heart Rate 1: 80 bpm Height: 5'1" Temperature: 36.1 (C) / 97.0 (F) Weight: 103 lbs 05/29/2013 Blood Pressure 1: 126/72 Code: 8480-6 BMI: 19.3 Code: 83199-7 Heart Rate 1: 80 bpm Height: 5'1" Weight: 102 lbs 05/15/2013 Blood Pressure 1: 156/74 Code: 8480-6 BMI: 19.3 Code: 97905-7 Heart Rate 1: 88 bpm Height: 5'1" Weight: 102 lbs 04/23/2013 Blood Pressure 1: 140/82 Code: 8480-6 BMI: 19.3 Code: 01105-5 Heart Rate 1: 72 bpm Height: 5'1" Weight: 102 lbs 03/21/2013 Blood Pressure 1: 142/74 Code: 8480-6 Heart Rate 1: 92 bpm Weight: 103 lbs 01/16/2013 Blood Pressure 1: 120/56 Code: 8480-6 BMI: 20.0 Code: 16234-5 Heart Rate 1: 72 bpm Height: 5'1" Weight: 106 lbs 12/19/2012 Blood Pressure 1: 118/66 Code: 8480-6 Heart Rate 1: 84 bpm Weight: 12/10/2012 Blood Pressure 1: 132/62 Code: 8480-6 Heart Rate 1: 64 bpm Weight: 103 lbs 10/30/2012 Blood Pressure 1: 122/66 Code: 8480-6 BMI: 19.9 Code: 28375-8 Heart Rate 1: 61 bpm Height: 5'1" [...] 1: 118/72 Code: 8480-6 BMI: 21.0 Code: 53233-3 Heart Rate 1: 66 bpm Height: 5'1" Respiratory Rate: 16 bpm Weight: 111 lbs 2012 Blood Pressure 1: 122/62 Code: 8480-6 Heart Rate 1: 68 bpm Weight: 110 lbs 12/01/2011 Blood Pressure 1: 150/60 Code: 8480-6 BMI: 20.8 Code: 45609-1 Heart Rate 1: 60 bpm Height: 5'1" Respiratory Rate: 16 bpm Weight: 110 lbs 11/23/2011 Blood Pressure 1: 170/68 Code: 8480-6 BMI: 21.1 Code: 41937-6 Heart Rate 1: 64 bpm Height: 5'1" Temperature: 36.3 (C) / 97.3 (F) Weight: 111 lbs 8 oz 10/17/2011 Blood Pressure 1: 148/62 Code: 8480-6 Heart Rate 1: 74 bpm 10/03/2011 Blood Pressure 1: 102/48 Code: 8480-6 BMI: 21.4 Code: 45511-9 Heart Rate 1: 76 bpm Height: 5'1" Respiratory Rate: 16 bpm Weight: 113 lbs 08/08/2011 Blood Pressure 1: 128/60 Code: 8480-6 Heart Rate 1: 80 bpm Respiratory Rate: 16 bpm Weight: 113 lbs 05/09/2011 Blood Pressure 1: 130/62 Code: 8480-6 BMI: 20.7 Code: 08366-5 Heart Rate 1: 64 bpm Height: 5'1" Respiratory Rate: 16 bpm Weight: 109 lbs 8 oz 03/29/2011 Blood Pressure 1: 120/62 Code: 8480-6 BMI: 20.2 Code: 79900-7 Heart Rate 1: 66 bpm Height: 5'1" Respiratory Rate: 12 bpm Weight: 107 lbs 03/15/2011 Blood Pressure 1: 120/64 Code: 8480-6 BMI: 19.8 Code: 12845-3 Heart Rate 1: 76 bpm Height: 5'1" Respiratory Rate: 16 bpm Weight: 105 lbs Functional Status No Functional Status data History of Present Illness Symptom Name Status Result Effective Date Notes Quality intermittent 10/09/2018 None Onset and Resolution [...] contacts 03/20/2014 sat next to neighbor in [place] who had tonsillitis sore throat Pertinent Findings [...] data Encounters Encounter Performer Location Codes Date ([id number]) 40093 EST. PATIENT, LEVEL III Diagnosis: Raynaud's syndrome without gangrene[ICD10: I73.00] Diagnosis: Pain in left hand[ICD10: M79.642] Diagnosis: Pain in right hand[ICD10: M79.641] Karma Bahena MD, [facility] CPT- 4: 31941 10/09/2018 [id number] EST. PATIENT, LEVEL III Diagnosis: Cough[ICD10: R05] Diagnosis: Acute laryngopharyngitis[ICD10: J06.0] Diagnosis: Other allergic rhinitis[ICD10: J30.89] Diagnosis: Raynaud's syndrome without gangrene[ICD10: I73.00] Katharine Bahena MD, [facility] CPT-4: 00483 09/12/2018 [id number]) 74993 EST. PATIENT, LEVEL IV Diagnosis: Raynaud's syndrome without gangrene[ICD10: I73.00] Diagnosis: Pain in right toe(s)[ICD10: M79.674] Diagnosis: Chronic atrial fibrillation[ICD10: I48.2] Karma Bahena MD, [facility] CPT-4: 48564 08/14/2018 ([id number]) 68887 EST. PATIENT, LEVEL IV Diagnosis: Chronic atrial fibrillation[ICD10: I48.2] Diagnosis: Sebaceous cyst[ICD10: L72.3] Diagnosis: Raynaud's syndrome without gangrene[ICD10: I73.00] Karma Bahena MD, [facility] CPT-4: 50227 07/26/2018 ([id number]) 04584 EST. PATIENT, LEVEL IV Diagnosis: Essential (primary) hypertension[ICD10: I10] Diagnosis: Atrophy of thyroid (acquired)[ICD10: E03.4] Diagnosis: Gastro-esophageal reflux disease without esophagitis[ICD10: K21.9] Karma Bahena MD, [facility] CPT-4: 70213 06/04/2018 ([id number]) 29320 EST. PATIENT, LEVEL IV Diagnosis: Essential (primary) hypertension[ICD10: I10] Diagnosis: Atrophy of thyroid (acquired)[ICD10: E03.4] Diagnosis: Other intermediate (current) drug therapy[ICD10: Z79.899] Karma Bahena MD, [facility] CPT-4: 73097 01/31/2018 ([id number]) 44677 EST. PATIENT, LEVEL IV Diagnosis: Essential (primary) hypertension[ICD10: I10] Diagnosis: Chronic atrial fibrillation[ICD10: I48.2] Diagnosis: Allergic rhinitis due to pollen[ICD10: J30.1] Diagnosis: Cough[ICD10: R05] Karma Bahena MD, [facility] CPT-4: 98640 12/14/2017 50216 EST. PATIENT, LEVEL IV Diagnosis: Other allergic rhinitis[ICD10: J30.89] Katharine aBhena MD, [facility] CPT- 4: 76474 12/07/2017 ([id number]) 08400 EST. PATIENT, LEVEL IV Diagnosis: Essential (primary) hypertension[ICD10: I10] Diagnosis: Chronic atrial fibrillation[ICD10: I48.2] Diagnosis: Atrophy of thyroid (acquired)[ICD10: E03.4] Karma Bahena MD, [facility] CPT-4: 90041 11/14/2017 ([id number]) 33013 EST. PATIENT, LEVEL IV Diagnosis: Essential (primary) hypertension[ICD10: I10] Diagnosis: Localized edema[ICD10: R60.0] Diagnosis: Encounter for immunization[ICD10: Z23] Diagnosis: Age-related osteoporosis without current pathological fracture[ICD10: M81.0] Karma Bahena MD, [facility] CPT-4: 89506 03/27/2017 ([id number]) 36777 EST. PATIENT, LEVEL IV Diagnosis: Essential (primary) hypertension[ICD10: I10] Diagnosis: Chronic atrial fibrillation[ICD10: I48.2] Diagnosis: Dysphonia[ICD10: R49.0] Karma Bahena MD, [facility] CPT-4: 83326 01/19/2017 ([id number]) Miscellaneous no charge Diagnosis: Cough[ICD10: R05] Diagnosis: Acute upper respiratory infection, unspecified[ICD10: J06.9] Laura Bahena MD, [facility] CPT-4: 24907 11/29/2016 27169 EST. PATIENT, LEVEL III Diagnosis: Cough[ICD10: R05] Diagnosis: Acute laryngopharyngitis[ICD10: J06.0] Katharine Bahena MD, [facility] CPT- 4: 30269 11/23/2016 ([id number]) 22074 EST. PATIENT, LEVEL III Diagnosis: Acute laryngopharyngitis[ICD10: J06.0] Laura Bahena MD [facility] CPT-4: 26687 11/21/2016 ([id number]) Miscellaneous no charge Diagnosis: Laceration without foreign body of right forearm, subsequent encounter[ICD10: S51.811D] Karma Bahena MD [facility] CPT-4: 41059 11/17/2016 ([id number]) Miscellaneous no charge Diagnosis: Laceration without foreign body of right forearm, subsequent encounter[ICD10: S51.811D] Karma Bahena MD [facility] CPT-4: 07088 11/14/2016 ([id number]) Miscellaneous no charge Diagnosis: Laceration without foreign body of right forearm, subsequent encounter[ICD10: S51.811D] Karma Bahena MD, [facility] CPT-4: 37045 11/11/2016 ([id number]) Miscellaneous no charge Diagnosis: Laceration without foreign body of right forearm, subsequent encounter[ICD10: S51.811D] Karma Bahena MD, [facility] CPT-4: 32762 11/10/2016 ([id number]) 13800 EST. PATIENT, LEVEL II Diagnosis: Laceration without foreign body of right forearm, subsequent encounter[ICD10: S51.811D] Karma Bahena MD [facility] CPT-4: 86167 11/08/2016 ([id number]) 81101 EST. PATIENT, LEVEL IV Diagnosis: Atrophy of thyroid (acquired)[ICD10: E03.4] Diagnosis: Chronic atrial fibrillation[ICD10: I48.2] Diagnosis: Laceration without foreign body of right forearm, subsequent encounter[ICD10: S51.811D] Karma Bahena MD, [facility] CPT-4: 99175 11/02/2016 ([id number]) 36936 EST. PATIENT, LEVEL III Diagnosis: Laceration without foreign body of right forearm, initial encounter[ICD10: S51.811A] Laura Bahena MD, [facility] CPT-4: 35231 10/27/2016 ([id number]) 11532 EST. PATIENT, LEVEL IV Diagnosis: Essential (primary) hypertension[ICD10: I10] Diagnosis: Chronic atrial fibrillation[ICD10: I48.2] Karma Bahena MD, [facility] CPT-4: 88551 08/31/2016 ([id number]) 91341 EST. PATIENT, LEVEL IV Diagnosis: Localized edema[ICD10: R60.0] Diagnosis: Essential (primary) hypertension[ICD10: I10] Diagnosis: Abdominal distension (gaseous)[ICD10: R14.0] Karma Bahena MD, [facility] CPT-4: 37651 07/27/2016 ([id number]) 70206 EST. PATIENT, LEVEL IV Diagnosis: Essential (primary) hypertension[ICD10: I10] Diagnosis: Chronic atrial fibrillation[ICD10: I48.2] Diagnosis: Localized edema[ICD10: R60.0] Karma Bahena MD, [facility] CPT-4: 93365 06/23/2016 ([id number]) 76477 EST. PATIENT, LEVEL III Diagnosis: Localized edema[ICD10: R60.0] Karma Bahena MD, [facility] CPT-4: 64942 06/09/2016 ([id number]) 90269 EST. PATIENT, LEVEL III Diagnosis: Irritable bowel syndrome without diarrhea[ICD10: K58.9] Diagnosis: Pruritus ani[ICD10: L29.0] Karma Bahena MD, [facility] CPT-4: 18335 05/25/2016 ([id number]) 55888 EST. PATIENT, LEVEL III Diagnosis: Abdominal distension (gaseous)[ICD10: R14.0] Diagnosis: Encounter for screening mammogram for malignant neoplasm of breast[ICD10: Z12.31] Karma Bahena MD, [facility] CPT-4: 15559 05/17/2016 ([id number]) 91371 EST. PATIENT, LEVEL IV Diagnosis: Essential (primary) hypertension[ICD10: I10] Diagnosis: First degree hemorrhoids[ICD10: K64.0] Diagnosis: Encounter for immunization[ICD10: Z23] Karma Bahena MD, [facility] CPT-4: 83962 03/24/2016 ([id number]) 74892 EST. PATIENT, LEVEL III Diagnosis: Epidermal cyst[ICD10: L72.0] Diagnosis: Essential (primary) hypertension[ICD10: I10] Diagnosis: Chronic atrial fibrillation[ICD10: I48.2] Diagnosis: Other intermediate (current) drug therapy[ICD10: Z79.899] Karma Bahena MD, [facility] CPT-4: 27207 02/02/2016 ([id number]) 54267 EST. PATIENT, LEVEL III Diagnosis: Acute anal fissure[ICD10: K60.0] Karma Bahena MD, [facility] CPT-4: 99367 2016 ([id number]) 97934 EST. PATIENT, LEVEL III Diagnosis: Allergic rhinitis due to pollen[ICD10: J30.1] Diagnosis: Acute upper respiratory infection, unspecified[ICD10: J06.9] Laura Bahena MD, [facility] CPT-4: 86783 12/21/2015 ([id number]) 18076 EST. PATIENT, LEVEL III Diagnosis: Essential (primary) hypertension[ICD10: I10] Diagnosis: Chronic atrial fibrillation[ICD10: I48.2] Karma Bahena MD, [facility] CPT-4: 85602 11/03/2015 ([id number]) Miscellaneous no charge Diagnosis: Impacted cerumen, right ear[ICD10: H61.21] Katharine Bahena MD, [facility] CPT-4: 99450 10/19/2015 11218 EST. PATIENT, LEVEL IV Diagnosis: Impacted cerumen, right ear[ICD10: H61.21] Diagnosis: Other allergic rhinitis[ICD10: J30.89] Katharine Bahena MD, [facility] CPT- 4: 90436 10/13/2015 ([id number]) 82063 EST. PATIENT, LEVEL IV Diagnosis: Essential (primary) hypertension[ICD10: I10] Diagnosis: Chronic atrial fibrillation[ICD10: I48.2] Diagnosis: Urge incontinence[ICD10: N39.41] Diagnosis: Age-related osteoporosis without current pathological fracture[ICD10: M81.0] Karma Bahena MD, [facility] CPT-4: 67944 09/29/2015 ([id number]) 17902 EST. PATIENT, LEVEL IV Diagnosis: Essential (primary) hypertension[ICD10: I10] Diagnosis: Chronic atrial fibrillation[ICD10: I48.2] Diagnosis: Irritable bowel syndrome without diarrhea[ICD10: K58.9] Diagnosis: Unspecified hemorrhoids[ICD10: K64.9] Karma Bahena MD, [facility] CPT-4: 84010 09/15/2015 ([id number]) 00921 EST. 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 PATIENT, LEVEL III Diagnosis: Hematuria, unspecified[ICD10: R31.9] Diagnosis: Other urethritis[ICD10: N34.2] Diagnosis: Other specified noninflammatory disorders of vagina[ICD10: N89.8] Karma Bahena MD, [facility] CPT-4: 78489 05/26/2015 63659 EST. PATIENT, LEVEL IV Diagnosis: Gout, unspecified[ICD10: M10.9] Karma Bahena MD, [facility] CPT-4: 97131 05/21/2015 ([id number]) 16509 EST. PATIENT, LEVEL IV Diagnosis: Chronic atrial fibrillation[ICD10: I48.2] Diagnosis: Irritable bowel syndrome without diarrhea[ICD10: K58.9] Diagnosis: Cystocele, unspecified[ICD10: N81.10] Diagnosis: Urge incontinence[ICD10: N39.41] Diagnosis: Fecal smearing[ICD10: R15.1] Diagnosis: Hypothyroidism, unspecified[ICD10: E03.9] Karma Bahena MD, [facility] CPT-4: 05307 05/07/2015 ([id number]) 33506 EST. PATIENT, LEVEL III Diagnosis: Atrial fibrillation[ICD9: 427.31] Diagnosis: Bloating[ICD9: 787.3] Karma Bahena MD, [facility] CPT-4: 44045 03/23/2015 ([id number]) 37614 EST. PATIENT, LEVEL IV Diagnosis: Abdominal pain[ICD9: 789.00] Diagnosis: Atrial fibrillation[ICD9: 427.31] Diagnosis: ENCNTR LONG-ANTICOAG USE[ICD9: V58.61] Karma Bahena MD, [facility] CPT-4: 07858 03/09/2015 ([id number]) 86200 EST. PATIENT, LEVEL IV Diagnosis: HEMATURIA NOS[ICD9: 599.70] Diagnosis: Atrial fibrillation[ICD9: 427.31] Diagnosis: HYPOTHYROIDISM[ICD9: 244.9] Karma Bahena MD, [facility] CPT-4: 95073 10/30/2014 ([id number]) 65628 EST. PATIENT, LEVEL IV Diagnosis: Atrial fibrillation[ICD9: 427.31] Diagnosis: ALLERGIC RHINITIS[ICD9: 477.9] Diagnosis: Need for pneumococcal vaccine[ICD9: V03.82] Diagnosis: Osteoarthritis[ICD9: 715.90] Diagnosis: Osteoporosis[ICD9: 733.00] Karma Bahena MD, [facility] CPT-4: 51762 07/11/2014 ([id number]) 93245 EST. PATIENT, LEVEL III Diagnosis: Urge incontinence[ICD9: 788.31] Diagnosis: Dysuria[ICD9: 788.1] Karma Bahena MD, [facility] CPT-4: 62952 05/20/2014 ([id number]) 32432 EST. PATIENT, LEVEL IV Diagnosis: Atrial fibrillation[ICD9: 427.31] Diagnosis: Hematuria[ICD9: 599.70] Diagnosis: Dysuria[ICD9: 788.1] Diagnosis: ESSENTIAL HYPERTENSION[ICD9: 401.9] Karma Bahena MD, [facility] CPT- 4: 46197 04/29/2014 ([id number]) 60607 EST. PATIENT, LEVEL IV Diagnosis: ESSENTIAL HYPERTENSION[ICD9: 401.9] Diagnosis: ALLERGIC RHINITIS[ICD9: 477.9] Karma Bahena MD, [facility] CPT-4: 92653 03/20/2014 ([id number]) 48603 EST. PATIENT, LEVEL IV Diagnosis: ESSENTIAL HYPERTENSION[ICD9: 401.9] Diagnosis: ATRIAL FIBRILLATION[ICD9: 427.31] Diagnosis: Irritable bowel[ICD9: 564.1] Karma Bahena MD, [facility] CPT-4: 33921 03/05/2014 ([id number]) 19521 EST. PATIENT, LEVEL IV Diagnosis: Esophageal reflux[ICD9: 530.81] Diagnosis: DIARRHEA[ICD9: 787.91] Diagnosis: ABDOM PAIN NOS SITE[ICD9: 789.00] Karma Bahena MD, [facility] CPT- 4: 36887 01/29/2014 ([id number]) 09378 EST. PATIENT, LEVEL III Diagnosis: Irritable bowel[ICD9: 564.1] Diagnosis: DIARRHEA[ICD9: 787.91] Laura Bahena MD, [facility] CPT-4: 22386 01/14/2014 ([id number]) 98444 EST. PATIENT, LEVEL IV Diagnosis: ESSENTIAL HYPERTENSION[ICD9: 401.9] Diagnosis: ATRIAL FIBRILLATION[ICD9: 427.31] Diagnosis: URGE INCONTINENCE[ICD9: 788.31] Diagnosis: MALAISE AND FATIGUE[ICD9: 780.79] Diagnosis: Dyspnea[ICD9: 786.09] Karma Bahena MD, [facility] CPT-4: 52305 12/25/2013 ([id number]) 32974 EST. PATIENT, LEVEL IV Diagnosis: ESSENTIAL HYPERTENSION[SNOMED: 16473165] Diagnosis: ATRIAL FIBRILLATION[ICD9: 427.31] Diagnosis: Abdominal pain[ICD9: 789.00] Diagnosis: ESOPHAGEAL REFLUX[ICD9: 530.81] Karma Bahena MD, [facility] CPT-4: 41049 11/27/2013 ([id number]) 95226 EST. PATIENT, LEVEL IV Diagnosis: ESSENTIAL HYPERTENSION[SNOMED: 72284599] Diagnosis: ATRIAL FIBRILLATION[ICD9: 427.31] Diagnosis: Chronic osteoarthritis[ICD9: 715.90] Karma Bahena MD [facility] CPT- 4: 40388 09/12/2013 ([id number]) 48479 EST. PATIENT, LEVEL III Diagnosis: ESSENTIAL HYPERTENSION[SNOMED: 03648641] Diagnosis: Bruising[ICD9: 924.9] Diagnosis: ENCNTR LONG-RX USE NEC[ICD9: V58.69] Karma Bahena MD [facility] CPT- 4: 87390 08/15/2013 ([id number]) 64121 EST. PATIENT, LEVEL IV Diagnosis: ESSENTIAL HYPERTENSION[SNOMED: 22761101] Diagnosis: Hematuria[ICD9: 599.70] Diagnosis: Dysuria[ICD9: 788.1] Karma Bahena MD [facility] CPT-4: 21301 08/01/2013 ([id number]) 59039 EST. PATIENT, LEVEL III Diagnosis: UTI[ICD9: 599.0] Diagnosis: Hematuria[ICD9: 599.70] Laura Bahena MD [facility] CPT-4: 26946 07/01/2013 ([id number]) 71371 EST. PATIENT, LEVEL III Diagnosis: ATRIAL FIBRILLATION[ICD9: 427.31] Diagnosis: ESSENTIAL HYPERTENSION[SNOMED: 17797254] Karma Bahena MD [facility] CPT-4: 12818 05/29/2013 ([id number]) 50326 EST. PATIENT, LEVEL IV Diagnosis: Atrial fibrillation[ICD9: 427.31] Diagnosis: Encounter for monitoring digoxin therapy[ICD9: V58.83] Diagnosis: ESSENTIAL HYPERTENSION[SNOMED: 02784007] Karma Bahena MD [facility] CPT-4: 43906 05/15/2013 ([id number]) 00188 EST. PATIENT, LEVEL IV Diagnosis: ESSENTIAL HYPERTENSION[SNOMED: 17952045] Diagnosis: ATRIAL FIBRILLATION[ICD9: 427.31] Diagnosis: PALPITATIONS[ICD9: 785.1] Diagnosis: Dizziness and giddiness[ICD9: 780.4] Karma Bahena MD, [facility] CPT- 4: 42112 04/23/2013 ([id number]) 40083 EST. PATIENT, LEVEL III Diagnosis: OTHER CONSTIPATION[ICD9: 564.09] Diagnosis: ABDOM PAIN NOS SITE[ICD9: 789.00] Laura Bahena MD, [facility] CPT- 4: 81268 03/21/2013 ([id number]) 37968 EST. PATIENT, LEVEL IV Diagnosis: ESSENTIAL HYPERTENSION[SNOMED: 52246358] Diagnosis: Atrial fibrillation[ICD9: 427.31] Karma Bahena MD, [facility] CPT- 4: 49698 01/16/2013 ([id number]) Miscellaneous no charge Diagnosis: CELLULITIS OF HAND[ICD9: 682.4] Karma Bahena MD, [facility] CPT-4: 33683 12/19/2012 ([id number]) Miscellaneous no charge Diagnosis: ENCOUNTER FOR THERAPEUTIC DRUG MONITORING[ICD9: V58.83] Diagnosis: CELLULITIS OF HAND[ICD9: 682.4] Karma Bahena MD, [facility] CPT-4: 93640 12/14/2012 Miscellaneous no charge Diagnosis: CELLULITIS OF HAND[ICD9: 682.4] Karma Bahena MD, [facility] CPT-4: 63484 12/12/2012 [id number] EST. PATIENT, LEVEL II Diagnosis: CELLULITIS OF HAND[ICD9: 682.4] Diagnosis: ENCNTR LONG-RX USE NEC[ICD9: V58.69] Diagnosis: LONG-TERM USE ANTICOAGUL[ICD9: V58.61] Karma Bahena MD, [facility] CPT-4: 39553 12/11/2012 ([id number]) 87490 EST. PATIENT, LEVEL III Diagnosis: CELLULITIS OF HAND[ICD9: 682.4] Karma Bahena MD, [facility] CPT-4: 52480 12/10/2012 ([id number]) 28466 EST. PATIENT, LEVEL IV Diagnosis: Elevated digoxin level[ICD9: 796.0] Diagnosis: ATRIAL FIBRILLATION[ICD9: 427.31] Diagnosis: Inflammatory arthritis[ICD9: 714.9] Karma Bahena MD [facility] CPT- 4: 79292 10/30/2012 ([id number]) 43788 EST. PATIENT, LEVEL IV Diagnosis: Atrial fibrillation[ICD9: 427.31] Diagnosis: Anticoagulant long-term use[ICD9: V58.61] Diagnosis: ESSENTIAL HYPERTENSION[SNOMED: [id number]] PARVEEN Freitas MD CPT-4: 38001 08/08/2012 ([id number]) 90643 EST. PATIENT, LEVEL IV Diagnosis: ABDOM PAIN NOS SITE[ICD9: 789.00] Diagnosis: Constipation - functional[ICD9: 564.09] Diagnosis: EDEMA[ICD9: 782.3] Diagnosis: ATRIAL FIBRILLATION[ICD9: 427.31] Karma Bahena MD [facility] CPT- 4: 19127 07/11/2012 ([id number]) 44941 EST. PATIENT, LEVEL III Diagnosis: Cystocele[ICD9: 618.01] Diagnosis: Rectocele[ICD9: 618.04] Karma Bahena MD [facility] CPT-4: 39484 05/08/2012 ([id number]) 84826 EST. PATIENT, LEVEL IV Diagnosis: Atrial fibrillation[ICD9: 427.31] Diagnosis: ESSENTIAL HYPERTENSION[SNOMED: 50081997] Diagnosis: Status post small bowel resection[ICD9: V45.89] Diagnosis: ENCNTR LONG-ANTICOAG USE[ICD9: V58.61] Karma Bahena MD [facility] CPT-4: 12162 04/18/2012 ([id number]) Patient admitted to the hospital from clinic (NO CHARGE) Diagnosis: Abdominal pain[ICD9: 789.00] Diagnosis: Nausea and vomiting[ICD9: 787.01] Diagnosis: ESSENTIAL HYPERTENSION[SNOMED: 25668346] [facility] CPT-4: 92111K 03/13/2012 ([id number]) 98913 EST. PATIENT, LEVEL IV Diagnosis: ATRIAL FIBRILLATION[ICD9: 427.31] Diagnosis: URGE INCONTINENCE[ICD9: 788.31] Diagnosis: MALAISE AND FATIGUE[ICD9: 780.79] Diagnosis: Dyspnea[ICD9: 786.09] Karma Bahena MD, [facility] CPT-4: 00222 02/20/2012 87922 EST. PATIENT, LEVEL IV Diagnosis: Hematuria[ICD9: 599.70] Diagnosis: Vaginal yeast infection[ICD9: 112.1] Diagnosis: ATRIAL FIBRILLATION[ICD9: 427.31] Laura Bahena MD, [facility] CPT- 4: 82856 02/13/2012 ([id number]) 48757 EST. PATIENT, LEVEL IV Diagnosis: Atrial fibrillation[ICD9: 427.31] Diagnosis: Anticoagulation goal of INR 2 to 3[ICD9: V58.83] Diagnosis: Urinary incontinence, urge[ICD9: 788.31] Diagnosis: ESSENTIAL HYPERTENSION[SNOMED: 51456821] Karma Bahena MD, [facility] CPT-4: 72996 02/01/2012 ([id number]) 35267 EST. PATIENT, LEVEL IV Diagnosis: Atrial fibrillation[ICD9: 427.31] Diagnosis: Anticoagulant long-term use[ICD9: V58.61] Diagnosis: ESSENTIAL HYPERTENSION[SNOMED: 51586743] Karma Bahena MD, [facility] CPT-4: 91440 2012 89036 EST. PATIENT, LEVEL IV Diagnosis: UTI[ICD9: 599.0] Diagnosis: ESSENTIAL HYPERTENSION[SNOMED: 78490948] Diagnosis: MALAISE AND FATIGUE[ICD9: 780.79] Diagnosis: Esophageal reflux[ICD9: 530.81] Karma Bahena MD, [facility] CPT-4: 35628 12/01/2011 ([id number]) 98012 EST. PATIENT, LEVEL IV Diagnosis: UTI (urinary tract infection)[ICD9: 599.0] Diagnosis: ESSENTIAL HYPERTENSION[SNOMED: 95749387] Diagnosis: URGE INCONTINENCE[ICD9: 788.31] Karma Bahena MD, [facility] CPT-4: 14258 11/23/2011 ([id number]) 31944 EST. PATIENT, LEVEL IV Diagnosis: ESSENTIAL HYPERTENSION[SNOMED: 35757099] Diagnosis: IMPACTED CERUMEN[ICD9: 380.4] Diagnosis: MALAISE AND FATIGUE[ICD9: 780.79] Diagnosis: EDEMA[ICD9: 782.3] Karma Bahena MD, [facility] CPT-4: 92637 10/03/2011 30213 EST. PATIENT, LEVEL IV Diagnosis: ESSENTIAL HYPERTENSION[SNOMED: 34206476] Diagnosis: Generalized osteoarthritis[ICD9: 715.09] Diagnosis: OSTEOPOROSIS[ICD9: 733.00] Karma Bahena MD, [facility] CPT-4: 62625 08/08/2011 76967 EST. PATIENT, LEVEL IV Diagnosis: Muscle cramp[ICD9: 729.82] Diagnosis: Torticollis[ICD9: 723.5] Diagnosis: Rash[ICD9: 782.1] Karma Bahena MD, [facility] CPT-4: 72847 05/09/2011 76887 EST. PATIENT, LEVEL IV Diagnosis: Leg cramps, sleep related[ICD9: 327.52] Diagnosis: Underweight[ICD9: 783.22] Karma Bahena MD, [facility] CPT-4: 92915 03/29/2011 28971 EST. PATIENT, LEVEL IV Diagnosis: UTI[ICD9: 599.0] Diagnosis: Urge incontinence[ICD9: 788.31] Diagnosis: Loss of weight[ICD9: 783.21] Diagnosis: Palpitations[ICD9: 785.1] Diagnosis: Peripheral neuropathy, idiopathic[ICD9: 356.9] Karma Bahena MD, [facility] CPT-4: 26537 03/15/2011 Plan of Care Planned Activity Notes Codes Status Date Visit Plan: Hand pain with arthritis - Raynaud syndrome - discussed with pt - RX for Voltaren gel sent to the pharmacy. continue with amlodipine. 10/09/2018 Appointment: Karma Bahena WPtel: [address] [place], [place] [address] [place] (15 min) Moderate 10/09/2018 Patient Education: Patient Medication Summary Completed 10/09/2018 Appointment: Karma Bahena WPtel: [address] [place], [place] [address] (15 min) Moderate 10/01/2018 Visit Plan: URI [...] concerns. 09/12/2018 Appointment: Katharine Dai WPtel: [address] [facility] (15 min) Moderate 09/12/2018 Patient Education: Patient Medication Summary Completed 09/12/2018 Appointment: Karma Bahena WPtel: 1015 [facility] (15 min) Moderate 08/16/2018 Visit Plan: I [...] surgically removed. 08/14/2018 Appointment: Karma Bahena WPtel: 101[address] [facility] (15 min) Moderate 08/14/2018 Patient Education: Patient [...] surgically removed. 07/26/2018 Appointment: Karma Bahena WPtel: [facility]9 [facility] (15 min) Moderate 07/26/2018 Patient Education: Patient [...] not improving. 06/04/2018 Appointment: Karma Bahena WPtel: [facility]1 [facility] [place] (15 min) Moderate 06/04/2018 Patient Education: Patient Medication Summary Completed 06/04/2018 Appointment: Karma Bahena WPtel: [facility]4 [facility] (15 min) Moderate 03/14/2018 Visit Plan: Hypertension [...] of control. 01/31/2018 Appointment: Katharine Dai WPtel: [facility] [facility] - [facility] Wellness Visit 01/31/2018 [...] allergy spray. 12/14/2017 Appointment: Karma Bahena WPtel: 1015 [facility] (15 min) Moderate 12/14/2017 Patient Education: Patient [...] spray. 12/07/2017 Appointment: Kath[facility] Dai [facility] (15 min) Moderate 12/07/2017 Patient Education: [...] onths based on previous levels of control. 11/14/2017 Appointment: [facility] Ba[facility] (15 min) Moderate 11/14/2017 Patient Education: [...] today. 03/27/2017 Appointment: Karma Bahena WPtel: 1015 [facility] (15 min) Moderate 03/27/2017 Patient Education: Patient [...] surrogate. 01/23/2017 Appointment: Kath[facility] Dai [facility]Ptel[facility] [facility] [facility] - Annual Wellness Visit 01/23/2017 [...] uncontrolled. 01/19/2017 Appointment: Karma Bahena WPtel: 1015 [facility] (15 min) Moderate 01/19/2017 Patient Education: Patient Medication Summary Completed 01/19/2017 Care Plan: Referral Order SNOMED-CT : 755408592 Pending 01/19/2017 Appointment: Karma Bahena WPtel: 1012 [facility] (15 min) Moderate 01/04/2017 Appointment: Karma Bahena WPtel: 1015 [facility] (15 min) Moderate 12/28/2016 Visit Plan: IRC-mjwug-jxh zpack-call if symptoms do not resolve or if any worse. Patient verbalized understanding of plan. 11/29/2016 Appointment: Laura Colin WPtel: [phone] [phone] [place] (15 min) Moderate 11/29/2016 Patient Education: [...] pharmacy. 11/23/2016 Appointment: Katharine Dai WPtel: [address] [facility] [place] (15 min) Moderate 11/23/2016 Patient Education: Patient Medication Summary Completed 11/23/2016 Visit Plan: Pharyngitis-Discussed natural and expected course of this diagnosis and need to alert me if symptoms do not follow expected course, or if any worse. Recommended salt water gargles as needed for pain. Ty lenol/motrin as needed for fever/discomfort. 11/21/2016 Appointment: Laura Colin WPtel: [phone] [phone] [place] (15 min) Moderate 11/21/2016 Patient Education: [...] monitor symptoms. 11/08/2016 Appointment: Karma Bahena WPtel: [facility]1 [facility] [place] (10 min) Simple 11/08/2016 Patient Education: [...] bactroban, etc. 11/02/2016 Appointment: Karma Bahena WPtel: [facility]6 [facility] [place] (15 min) Moderate 11/02/2016 Appointment: Nurse Visit 11/02/2016 Patient Education: Patient Medication Summary Completed 11/02/2016 Appointment: Nurse Visit 10/31/2016 Visit Plan: Laceration-right forearm- Pt was instructed to keep the wound clean, cleanse with sterile saline, use bactroban ointment, call if redness, pustular drainage, or any other acute concerns. Follow up Monday for dressing changes. 10/27/2016 Appointment: Laura Colin WPtel: [phone] [phone] [place] (30 min) Complex 10/27/2016 Patient Education: [...] symptoms. 08/31/2016 Appointment: Karma Bahena WPtel: [facility] [place] (15 min) Moderate 08/31/2016 Patient Education: Patient [...] swelling. 07/27/2016 Appointment: Karma Bahena WPtel: [facility] [place] (15 min) Moderate 07/27/2016 Patient Education: Patient [...] of lasix 06/23/2016 Appointment: Karma Bahena WPtel: [phone] [facility] (15 min) Moderate 06/23/2016 Patient Education: Patient Medication Summary Completed 06/23/2016 Patient Education: Hypertension Completed 06/23/2016 Visit Plan: Edema - with Dyspnea - RX for laxis and compression socks - pt to call if not improving. 06/09/2016 Appointment: Karma Bahena WPtel: [facility]2 [facility] (15 min) Moderate 06/09/2016 Patient Education: Patient Medication Summary Completed 06/09/2016 Visit Plan: Abdominal pain and rectal itching - recommended pt to use betamethasone on vaginal/rectal region, monitor symptoms call if not improving. Continue with beano and simethicone 05/25/2016 Appointment: Karma Bahena WPtel: [facility]5 [facility] (15 min) Moderate 05/25/2016 Patient Education: Patient Medication Summary Completed 05/25/2016 Care Plan: SCREENINGMAMMOGRAPHYDIGITAL [facility] [id number] Pending 05/20/2016 Visit Plan: Abdominal distension - use simethicone four times daily - after meals - if it does not help - in the next two weeks - call the office and we will do a ct scan of the abdomen and pelvis 05/17/2016 Appointment: Karma Bahena WPtel: [phone] [facility] [place] (15 min) Moderate 05/17/2016 Patient Education: [...] steroid ointment 03/24/2016 Appointment: Karma Bahena WPtel: [facility] (30 min) Complex 03/24/2016 Patient Education: [...] allergy spray. 12/21/2015 Appointment: Laura Colin [facility]Ptel: [facility] [facility] (30 min) Complex 12/21/2015 Patient Education: Patient [...] becoming uncontrolled. 11/03/2015 Appointment: Karma Bahena WPtel: [facility]5 [facility] (15 min) Moderate 11/03/2015 Patient Education: [...] Hypertension Completed 09/01/2015 Appointment: Karma Bahena WPtel: [address] [place], [place] [address] (15 min) Moderate 07/13/2015 Visit Plan: Hematuria/Urethritis [...] 05/13/2015 Care Plan: Referral Order SNOMED-CT : [id number] Ordered 05/08/2015 Visit Plan: Atrial Fibrillation - [...] Dr. Collins. 05/07/2015 Appointment: Karma Bahena WPtel: [address] [place] [address] (15 min) Moderate 05/07/2015 Patient Education: Patient [...] becoming uncontrolled. 10/30/2014 Appointment: Karma Bahena WPtel: [facility]7 [address] Follow up 10/30/2014 Patient Education: Patient Medication Summary Completed 10/30/2014 Appointment: Karma Bahena WPtel: [facility]8 [facility] Follow up 07/22/2014 Visit Plan: Atrial Fibrillation [...] in hospital. 07/11/2014 Appointment: Karma Bahena WPtel: [facility]9 [facility] [facility] 07/11/2014 Patient Education: Patient Medication Summary Completed 07/11/2014 Appointment: Karma Bahena WPtel: [address] [place], [place] [phone] Follow up 07/07/2014 Visit Plan: Urinary incontinence [...] times weekly. 05/20/2014 Appointment: Karma Bahena WPtel: [facility]5 [facility] Follow up 05/20/2014 Patient Education: Patient Medication Summary Completed 05/20/2014 Appointment: Karma Bahena WPtel: [address] [place], [place] [phone] Lab Draw 05/14/2014 Patient Education: Patient Medication [...] vesicare. 04/29/2014 Appointment: Karma Bahena WPtel: [facility]5 [facility] Follow up 04/29/2014 Patient Education: Patient [...] spray. 03/20/2014 Appointment: Karma Bahena WPtel: [phone] [facility] 03/20/2014 Patient Education: Patient Medication [...] uncontrolled. 03/05/2014 Appointment: Karma Bahena WPtel: [facility] Follow up 03/05/2014 Patient Education: Patient [...] with report. 01/29/2014 Appointment: Karma Bahena WPtel: 1012 [facility] Follow up 01/29/2014 Patient Education: Patient Medication [...] exposure,and dyspnea on exertion - will ask [place] Patient do an overnight oxygen study on [place] as she has cardiac history, weight loss, and nocturnal hypoxemia may be a part of her weight loss and fatigue. 12/25/2013 Appointment: Karma Bahena WPtel: [facility] [facility] Follow up 12/25/2013 Patient Education: Patient [...] twice daily. 11/27/2013 Appointment: Karma Bahena WPtel: [address] [place], [place] [phone] Follow up 11/27/2013 Patient Education: Patient Medication [...] heart rate. Osteoarthritis - send pt to [facility] physical therapy for gereral osteoarhtritis program for strengthening and pain reduction. Hypertension - well controlled - continue with current medications, continue with no added salt diet. Pt has been encouraged to exercise daily. The pt has been advised to call the office if there are any acute concerns about change in blood pressure readings at home. 09/12/2013 Appointment: Karma Bahena WPtel: [facility]2 [facility] Follow up 09/12/2013 Patient Education: Patient Medication Summary Completed 09/12/2013 Patient Education: Hypertension Completed 09/12/2013 Appointment: Karma Bahena WPtel: [address] [place], [place] [phone] [place] Follow up 08/21/2013 Visit Plan: Hypertension - [...] PT/INR 08/15/2013 Appointment: Karma Bahena WPtel: [facility] [facility] [place] Follow up 08/15/2013 Patient Education: Patient [...] urethra. 08/01/2013 Appointment: Karma Bahena WPtel: [facility] [facility] [place] Follow up 08/01/2013 Patient Education: Patient Medication Summary Completed 08/01/2013 Patient Education: Hypertension Completed 08/01/2013 Appointment: Laura Colin WPtel: [address] [facility] [place] Lab Draw 07/29/2013 Patient Education: Patient Medication Summary Completed 07/29/2013 Visit Plan: Osteoporosis-prolia on june 25-patient to let Dr Hansen know 07/01/2013 Appointment: Laura Colin WPtel: [facility] Follow up 07/01/2013 Appointment: JosefMigdaliay WPtel: [facility]5 [facility] [place] Follow up 07/01/2013 Patient Education: Patient Medication Summary Completed 07/01/2013 Appointment: Karma Bahena WPtel: [address] [place] [address] Follow up 06/25/2013 Appointment: Karma Bahena WPtel: [facility]5 [facility] [place] Lab Draw 06/20/2013 Patient Education: Patient Medication Summary Completed 06/20/2013 Appointment: Karma Bahena WPtel: [facility]5 [facility] [place] Lab Draw 06/19/2013 Visit Plan: [...] at home. 05/29/2013 Appointment: Karma Bahena WPtel: [facility]5 [facility] Follow up 05/29/2013 Patient Education: Patient [...] home. 05/15/2013 Appointment: Karma Bahena WPtel: [phone] [facility] Other 05/15/2013 Patient Education: Patient Medication Summary [...] shot today. 04/23/2013 Appointment: Karma Bahena WPtel: [facility]5 [facility] Other 04/23/2013 Patient Education: Patient Medication Summary [...] this regimen. 03/21/2013 Appointment: Laura Colin WPtel: [facility]5 [phone] Follow up 03/21/2013 Patient Education: Patient Medication [...] becoming uncontrolled. 01/16/2013 Appointment: Karma Bahena WPtel: [address] [place], [place] [address] Follow up 01/16/2013 Patient Education: Patient Medication Summary Completed 01/16/2013 Patient Education: Hypertension Completed 01/16/2013 Visit Plan: Wound Instructions - Pt was instruced to keep the wound clean, wash with antibacterial soap, use triple antibiotic ointment, call if redness, pustular drainage, or any other acute conerns. 12/19/2012 Appointment: Karma Bahena WPtel: [address] [place], [place] [phone] Other 12/19/2012 Patient Education: Patient Medication Summary Completed 12/19/2012 Patient Education: Patient Medication Summary Completed 12/17/2012 Visit Plan: Cellulitis - improved- monitor symptoms - need to check handon Monday morning. 12/14/2012 Appointment: Karma Bahena WPtel: [address] [place], [place] [phone] Follow up 12/14/2012 Patient Education: Patient Medication Summary Completed 12/14/2012 Visit Plan: Cellulitis - improved- monitor symptoms - need to check handon Monday morning. 12/12/2012 Appointment: Karma Bahena WPtel: [address] [place], [place] [phone] Work-in 12/12/2012 Patient Education: Patient Medication Summary [...] warmth, discharge. 12/10/2012 Appointment: Karma Bahena WPtel: [address] [place], [place] [phone] Other 12/10/2012 Patient Education: Patient Medication Summary [...] becoming uncontrolled. 10/30/2012 Appointment: Karma Bahena WPtel: 1012 [facility] Follow up 10/30/2012 Patient Education: Patient Medication Summary Completed 10/30/2012 Appointment: Laura Colin WPtel: [phone] [phone] Lab Draw 09/13/2012 Patient Education: Patient Medication [...] and 3.5. 08/08/2012 Appointment: Karma Bahena WPtel: 1016 [facility] Other 08/08/2012 Patient Education: Patient Medication Summary [...] this regimen. 07/11/2012 Appointment: Karma Bahena WPtel: [facility] swelling, leg edema Other 07/11/2012 Patient [...] vaginally. 05/08/2012 Appointment: Karma Bahena WPtel: [facility] Follow up 05/08/2012 Patient Education: Patient [...] hospitalization. 04/18/2012 Appointment: Karma Bahena WPtel: [facility] Follow up 04/18/2012 Patient Education: Patient Medication Summary Completed 04/18/2012 Patient Education: High Blood Pressure: Essential Hypertension Completed 04/18/2012 Appointment: Karma Bahena WPtel: 1015 [facility] [place] Follow up 04/09/2012 Appointment: Karma Bahena WPtel: [facility] [place] Lab Draw 04/04/2012 Appointment: Laura Colin WPtel: [facility] [place] Lab Draw 03/19/2012 Visit Plan: [...] Hypertension Completed 03/13/2012 Appointment: Karma Bahena WPtel: [facility]8 [facility] [place] Lab Draw 03/08/2012 Patient Education: [...] cardiac rehab. 02/20/2012 Appointment: Karma Bahena WPtel: [facility]9 [facility] [place] Other 02/20/2012 Patient Education: Patient Medication [...] becoming uncontrolled. 02/13/2012 Appointment: Laura Colin WPtel: [facility]2 [phone] [place] Other 02/13/2012 Patient Education: Patient Medication Summary Completed 02/13/2012 Appointment: Karma Bahena WPtel: [facility]6 [facility] [place] Lab Draw 02/07/2012 Visit Plan: [...] the medication. 02/01/2012 Appointment: Karma Bahena WPtel: [facility]9 [facility] Other 02/01/2012 Patient Education: Patient Medication Summary Completed 02/01/2012 Patient Education: High Blood Pressure: Essential Hypertension Completed 02/01/2012 Appointment: Karma Bahena WPtel: [facility]1 [facility] Lab Draw 01/17/2012 Visit Plan: Atrial Fibrillation [...] home. 2012 Appointment: Karma Bahena WPtel: [phone] [facility] Other 2012 Patient Education: Patient Medication Summary Completed 2012 Patient Education: High Blood Pressure: Essential Hypertension Completed 2012 Appointment: Karma Bahena WPtel: [phone] Follow up 12/20/2011 Visit Plan: Dicyclomine up [...] room. 12/01/2011 Appointment: Karma Bahena WPtel: 1015 [facility] Other 12/01/2011 Patient Education: Patient Medication Summary [...] resolves. 11/23/2011 Appointment: Laura Colin WPtel: [address] [place] [id number] [place] [address] Other 11/23/2011 Patient Education: Patient Medication Summary Completed 11/23/2011 Patient Education: High Blood Pressure: Essential Hypertension Completed 11/23/2011 Visit Plan: Cerumen Impaction - The impacted cerumen was removed with the use of either ear currette alone or in combination with ear curette and water pick. The patient tolerated the procedure without incident and had improvement in hearing 10/17/2011 Appointment: Cristi Laura WPtel: [facility]5 [phone] [place] Other 10/17/2011 Patient Education: Patient Medication [...] by irrigation. 10/03/2011 Appointment: Karma Bahena WPtel: [address] [place] [address] [place] Other 10/03/2011 Patient Education: Patient Medication [...] is evidence. 08/08/2011 Appointment: Karma Bahena WPtel: [address] [place], [place] [phone] Other 08/08/2011 Patient Education: Patient Medication Summary Completed 08/08/2011 Patient Education: High Blood Pressure: Essential Hypertension Completed 08/08/2011 Visit Plan: Muscle cramps - the cramps are a little better, continue with the Diltiazem and it is okay to use the over the counter supplement with quinine - but use it sparingly. For the rash, use the prescripti on the control area operator prescribed for the itching , call if the rash is not improved. Torticollis - continue with physical therapy, call if the neck muscles do not continue to show improvement. 05/09/2011 Appointment: Karma Bahena WPtel: [address] [place] [address] Other 05/09/2011 Patient Education: Patient Medication Summary [...] water aerobics. 03/29/2011 Appointment: Karma Bahena WPtel: [address] [place], [place] [phone] Other 03/29/2011 Patient Education: Patient Medication Summary Completed 03/29/2011 Appointment: Karma Bahena WPtel: [address] [place], [place] [address] Other 03/17/2011 Visit Plan: UTI - UA negative. Urge incontinence- restart on the vesicare- at 5 mg. Continue to avoid caffinated foods/fluids. Peripheral Neuropathy - per slot attendant report - Continue with the metanex. Loss of weight - WEIGHT CHECK IN 2 WKS. Palpitations- likely stress induced. If the symptoms worsen, call the office. 03/15/2011 Appointment: Karma Bahena WPtel: [facility] Follow up 03/15/2011 Patient Education: Patient Medication [...] avoid caffinated foods/fluids. Peripheral Neuropathy - per slot attendant report - Continue with the metanex. Loss [...] therefore, would not change the medication. . [facility]-[id number]-[id number] zpack-call if symptoms do not resolve or [...] For the rash, use the prescription the control area operator prescribed for the itching , call [...] heart rate. Osteoarthritis - send pt to [facility] for strengthening and [...] Fstigue and dypnea- recommended cardiac rehab. rita tobin hearing aide drying beads - [...] ureter removed in [place]- doing well . Hematuria - check UA. [...] exposure,and dyspnea on exertion - will ask [place] Patient do an overnight oxygen study on [...]
--- OUTSIDE RECORDS SUMMARY | 2018-12-10 19:30 | XMS REPORT | CCD ---
Author Author Laura Colin Organization Karma Bahena MD, [facility] Address [address] [place] [address] Phone Care Team Providers Care Manager Managing Name Role Phone Karma Bahena PP Unavailable CCM Unavailable Summary Purpose Interface Exchange Insurance Providers Payer name Policy type / Coverage type Covered constitution party ID Effective Begin Date Effective End Date WPS Medicare Part B Medicare Part B [id number] 2018 Unknown AARP Medicare Part B [id number] 2018 Unknown Family history Sister Diagnosis Age [...] Unknown House 03/15/[address]: 605827381 Never smoker 03/15/2011 Has the patient ever used illegal drugs? Unknown Has never used illegal drugs 03/15/2011 Allergies, Adverse Reactions, Alerts Substance Reaction Codes Entered Date Inactivated Date Status BACTINE RxNorm: 254732 03/04/2011 No Inactive Date Active MICONAZOLE RxNorm: 6932 03/04/2011 No Inactive Date Active NEOSPORIN RxNorm: 414103 03/04/2011 No Inactive Date Active NEOMYCIN RxNorm: 7299 03/04/2011 No Inactive Date Active CORTISPORIN RxNorm: 48433 03/04/2011 No Inactive Date Active bactrim RxNorm: 948656 03/13/2012 No Inactive Date Active AUGMENTIN diarrhea RxNorm: 737935 2016 No Inactive Date Active METRONIDAZOLE Unknown [...] 401.9 ICD-10: I10 Active 12/25/2013 Unknown Other fdc (current) drug therapy ICD-9: V58.83 ICD-10: Z79.899 [...] 706.2 ICD-10: L72.0 Active 02/01/2016 Unknown Other fdc (current) drug therapy ICD-9: V58.69 [...] ICD-9: 401.9 ICD-10: I10 12/25/2013 Active Other fdc (current) drug therapy ICD-9: V58.83 ICD-10: Z79.899 [...] 706.2 ICD-10: L72.0 02/01/2016 Active Other long term care social worker (current) drug therapy ICD-9: V58.69 ICD-10: Z79.899 [...] Start Date Stop Date Status Fill Instructions amlodipine 5 mg tablet RxNorm: 840930 1/2 TABLET(S) PO DAILY MAY TAKE AN EXTRA 1/2 PILL AT THE END OF THE DAY IF BLOOD PRESSURE IS ELEVATED OVER 140 10/15/2018 02/11/2019 Active Patient requests 90 days supply Voltaren 1 % topical gel RxNorm: 954816 2 Gram(s) TOP QID on left shoulder and bilateral hands 10/09/2018 11/07/2018 Active levothyroxine 75 mcg tablet RxNorm: 246826 1 Tablet(s) PO daily 09/19/2018 01/16/2019 Active Keflex 500 mg capsule RxNorm: 634056 1 Capsule(s) PO TID 09/12/2018 09/18/2018 Inactive cyclobenzaprine 5 mg tablet RxNorm: 662464 Tablet(s) TABLET(S) 1/2 TABLET(S) PO Q8 NEEDED MUSCLE SPASMS 08/14/2018 No Stop Date Active spironolactone 25 mg tablet RxNorm: 408828 1 Tablet(s) PO BID 08/14/2018 11/06/2019 Active see new directions and quantity Nitro-Bid 2 % transdermal ointment RxNorm: 758546 1 dime size amount TD BID to fingers and toes 08/14/2018 09/12/2018 Inactive cyclobenzaprine 5 mg tablet RxNorm: 643836 TABLET(S) 1/2 TABLET(S) PO Q8 NEEDED MUSCLE SPASMS 08/06/2018 08/13/2018 Inactive amlodipine 5 mg tablet RxNorm: 006943 1/2 Tablet(s) PO daily may take an extra 1/2 pill at the end of the day if blood pressure is elevated over 140 07/26/2018 10/14/2018 Inactive cefdinir 300 mg capsule RxNorm: 898868 1 Capsule(s) PO BID 06/20/2018 06/26/2018 Inactive cefdinir 300 mg capsule RxNorm: 020937 1 Capsule(s) PO BID 06/20/2018 06/19/2018 Inactive metoprolol succinate ER 50 mg tablet,extended release 24 hr RxNorm: 411089 1.5 Tablet(s) daily 06/15/2018 03/11/2019 Active sucralfate 100 mg/mL oral suspension RxNorm: 764970 2 Teaspoon(s) PO TID as needed with reflux symptoms 06/04/2018 No Stop Date Active Vesicare 10 mg tablet RxNorm: 808669 1 TABLET(S) PO EVERY OTHER DAY 05/14/2018 01/08/2019 Active levothyroxine 50 mcg tablet RxNorm: 986797 1 TABLET(S) PO DAILY 04/30/2018 09/18/2018 Inactive Patient requests 90 days supply spironolactone 25 mg tablet RxNorm: 982341 1 Tablet(s) PO daily 03/14/2018 08/13/2018 Inactive levothyroxine 50 mcg tablet RxNorm: 304838 1 Tablet(s) PO daily 02/01/2018 04/29/2018 Inactive Eliquis 2.5 mg tablet RxNorm: 1356442 1 Tablet(s) PO BID 01/31/2018 02/20/2018 Inactive levothyroxine 50 mcg tablet RxNorm: 642459 1 Tablet(s) PO daily 01/31/2018 01/31/2018 Inactive Eliquis 2.5 mg tablet RxNorm: 1147081 TAKE 1 TABLET BY MOUTH TWICE DAILY 01/23/2018 07/21/2018 Inactive metoprolol succinate ER 50 mg tablet,extended release 24 hr RxNorm: 308955 1 TABLET(S) PO DAILY 01/23/2018 01/30/2018 Inactive metoprolol succinate ER 50 mg tablet,extended release 24 hr RxNorm: 049068 1.5 Tablet(s) daily 01/22/2018 06/14/2018 Inactive lisinopril 20 mg tablet RxNorm: 371339 1/2 Tablet(s) daily 01/19/2018 01/21/2018 Inactive Patient requests 90 days supply Singulair 10 mg tablet RxNorm: 061011 TAKE 1 TABLET BY MOUTH AT BEDTIME 01/18/2018 04/17/2018 Inactive Patient requests 90 days supply Singulair 10 mg tablet RxNorm: 452407 Tablet(s) PO 01/17/2018 01/17/2018 Inactive digoxin 125 mcg tablet RxNorm: 353848 1 TABLET(S) PO DAILY 01/03/2018 12/28/2018 Active Symbicort 160 mcg-4.5 mcg/actuation HFA aerosol inhaler RxNorm: 0104936 2 Puff(s) INH BID 12/14/2017 04/12/2018 Inactive please dispense an aerochamber for patient as well as her symbicort pantoprazole 40 mg tablet,delayed release RxNorm: 207213 1 Tablet(s) PO daily 12/14/2017 12/08/2018 Active cyclobenzaprine 5 mg tablet RxNorm: 707246 Tablet(s) 1/2 TABLET(S) PO Q8 NEEDED MUSCLE SPASMS 12/14/2017 08/05/2018 Inactive ProAir RespiClick 90 mcg/actuation breath activated RxNorm: 0851932 1-2 INH QID as needed shortness of breath 12/14/2017 07/11/2018 Inactive cyclobenzaprine 5 mg tablet RxNorm: 484302 1/2 TABLET(S) PO Q8 NEEDED MUSCLE SPASMS 12/08/2017 12/13/2017 Inactive betamethasone dipropionate 0.05 % topical ointment RxNorm: 429879 1 Application TOP TID use topically on the rectal tissue three times daily x 1 week then as needed 11/13/2017 No Stop Date Active Premarin 0.625 mg/gram vaginal cream RxNorm: 664301 1/2 GRAM(S) VAG TIW 11/13/2017 12/12/2017 Inactive cyclobenzaprine 5 mg tablet RxNorm: 247731 1/2 TABLET(S) PO Q8 NEEDED MUSCLE SPASMS 10/17/2017 12/07/2017 Inactive Vesicare 10 mg tablet RxNorm: 337128 1 Tablet(s) PO every other day 10/17/2017 04/14/2018 Inactive lisinopril 20 mg tablet RxNorm: 267681 1 TABLET(S) PO DAILY 10/02/2017 01/18/2018 Inactive Patient requests 90 days supply levothyroxine 75 mcg tablet RxNorm: 426562 1 TABLET(S) PO DAILY 09/25/2017 01/30/2018 Inactive spironolactone 25 mg tablet RxNorm: 689559 1 TABLET(S) PO DAILY 08/16/2017 03/13/2018 Inactive cyclobenzaprine 5 mg tablet RxNorm: 595930 1/2 TABLET(S) PO Q8 NEEDED MUSCLE SPASMS 08/16/2017 10/16/2017 Inactive Eliquis 2.5 mg tablet RxNorm: 9455087 TAKE 1 TABLET BY MOUTH TWICE DAILY 07/26/2017 01/21/2018 Inactive cyclobenzaprine 5 mg tablet RxNorm: 162069 1/2 Tablet(s) PO Q8 as needed muscle spasms 06/19/2017 08/15/2017 Inactive lisinopril 20 mg tablet RxNorm: 652542 1 TABLET(S) PO DAILY 06/12/2017 10/01/2017 Inactive metoprolol succinate ER 50 mg tablet,extended release 24 hr RxNorm: 106022 1 TABLET(S) PO DAILY 04/07/2017 01/01/2018 Inactive spironolactone 25 mg tablet RxNorm: 614297 1 Tablet(s) PO daily 03/27/2017 03/13/2018 Inactive acyclovir 800 mg tablet RxNorm: 975324 1 Tablet(s) PO TID 03/21/2017 03/30/2017 Inactive acyclovir 800 mg tablet RxNorm: 645162 1 Tablet(s) PO TID 03/21/2017 03/20/2017 Inactive levothyroxine 75 mcg tablet RxNorm: 867748 1 Tablet(s) PO daily 03/16/2017 09/11/2017 Inactive spironolactone 25 mg tablet RxNorm: 531316 1 TABLET(S) PO DAILY 02/09/2017 03/26/2017 Inactive lisinopril 20 mg tablet RxNorm: 075840 1 TABLET(S) PO DAILY 01/02/2017 05/31/2017 Inactive Zithromax Z-Claudio 250 mg tablet RxNorm: 324729 1 Tablet(s) PO UD 11/29/2016 12/03/2016 Inactive ZPACK Keflex 500 mg capsule RxNorm: 903894 1 Capsule(s) PO TID 11/23/2016 12/02/2016 Inactive guaifenesin 400 mg tablet RxNorm: 783026 1 Tablet(s) PO Q6 as needed 11/23/2016 11/27/2016 Inactive omeprazole 40 mg capsule,delayed release RxNorm: 056890 1 Capsule(s) PO QPM 11/02/2016 12/13/2017 Inactive digoxin 125 mcg tablet RxNorm: 584623 1 TABLET(S) PO DAILY 10/27/2016 07/23/2017 Inactive cyclobenzaprine 5 mg tablet RxNorm: 378196 1/2 Tablet(s) PO Q8 PRN 10/25/2016 06/18/2017 Inactive prn muscle spasms Augmentin 500 mg-125 mg tablet RxNorm: 702315 1 Tablet(s) PO BID 10/24/2016 11/02/2016 Inactive Lasix 20 mg tablet RxNorm: 931195 Tablet(s) PRN one to two times a week if needed 07/27/2016 No Stop Date Active Patient requests 90 days supply spironolactone 25 mg tablet RxNorm: 277591 1 Tablet(s) PO daily 07/27/2016 02/08/2017 Inactive Diflucan 150 mg tablet RxNorm: 455124 1 Tablet(s) PO daily 07/27/2016 08/02/2016 Inactive lisinopril 20 mg tablet RxNorm: 968005 1 Tablet(s) PO daily 07/12/2016 01/01/2017 Inactive Lasix 20 mg tablet RxNorm: 564758 1 TABLET(S) PO EVERY OTHER DAY EVERY OTHER DAY 06/10/2016 07/26/2016 Inactive Patient requests 90 days supply potassium chloride ER 10 mEq capsule,extended release RxNorm: 326210 1 CAPSULE(S) PO EVERY OTHER DAY 06/10/2016 07/26/2016 Inactive Patient requests 90 days supply potassium chloride ER 10 mEq capsule,extended release RxNorm: 589494 1 Capsule(s) PO every other day 06/09/2016 06/09/2016 Inactive Lasix 20 mg tablet RxNorm: 585764 1 Tablet(s) PO every other day every other day 06/09/2016 06/09/2016 Inactive levothyroxine 88 mcg tablet RxNorm: 815637 1 Tablet(s) PO daily 05/11/2016 11/06/2016 Inactive Premarin 0.625 mg/gram vaginal cream RxNorm: 393934 1/2 Gram(s) VAG TIW 03/24/2016 03/18/2017 Inactive metoprolol succinate ER 50 mg tablet,extended release 24 hr RxNorm: 911454 1 Tablet(s) PO daily 03/24/2016 03/18/2017 Inactive pantoprazole 40 mg tablet,delayed release RxNorm: 038011 1 Tablet(s) PO daily 02/08/2016 11/01/2016 Inactive betamethasone dipropionate 0.05 % topical ointment RxNorm: 436611 1 Application TOP TID use topically on the rectal tissue three times daily x 1 week then as needed 02/02/2016 11/12/2017 Inactive pantoprazole 40 mg tablet,delayed release RxNorm: 438547 1 Tablet(s) PO daily 2016 02/07/2016 Inactive alprazolam 0.25 mg tablet RxNorm: 942194 1 Tablet(s) PO Q6 as needed 12/04/2015 No Stop Date Active Vesicare 10 mg tablet RxNorm: 881844 1 Tablet(s) PO every other day 11/03/2015 10/16/2017 Inactive alprazolam 0.25 mg tablet RxNorm: 164977 1 Tablet(s) PO Q6 as needed 11/03/2015 12/03/2015 Inactive Premarin 0.625 mg/gram vaginal cream RxNorm: 117372 1/2 Gram(s) VAG TIW 11/03/2015 03/23/2016 Inactive levothyroxine 88 mcg tablet RxNorm: 493092 1 Tablet(s) PO daily 11/03/2015 05/10/2016 Inactive Diflucan 150 mg tablet RxNorm: 164644 1 Tablet(s) PO daily 10/19/2015 10/25/2015 Inactive cetirizine 10 mg chewable tablet RxNorm: 1551042 1 Tablet(s) PO daily 10/13/2015 11/11/2015 Inactive cetirizine 10 mg capsule RxNorm: 7945159 1 Capsule(s) PO daily 10/13/2015 11/11/2015 Inactive Vesicare 10 mg tablet RxNorm: 814044 1/2 TABLET(S) PO BID 09/21/2015 11/02/2015 Inactive betamethasone dipropionate 0.05 % topical ointment RxNorm: 756609 1 Application TOP TID use topically on the rectal tissue three times daily x 1 week then as needed 09/15/2015 02/01/2016 Inactive lisinopril 20 mg tablet RxNorm: 424738 1 Tablet(s) PO daily 09/01/2015 07/11/2016 Inactive digoxin 125 mcg tablet RxNorm: 062398 1 Tablet(s) PO daily 09/01/2015 08/25/2016 Inactive Augmentin 500 mg-125 mg tablet RxNorm: 137796 1 Tablet(s) PO TID 05/26/2015 06/04/2015 Inactive Pyridium 200 mg tablet RxNorm: 7271661 1 Tablet(s) PO TID 05/26/2015 05/27/2015 Inactive levothyroxine 88 mcg tablet RxNorm: 854039 1 Tablet(s) PO daily except 1/2 pill on monday and 05/07/2015 11/02/2015 Inactive digoxin 125 mcg tablet RxNorm: 821643 1 Tablet(s) PO daily 05/07/2015 08/31/2015 Inactive lisinopril 20 mg tablet RxNorm: 633781 1 TABLET(S) PO BID 04/13/2015 09/01/2015 Inactive Coumadin 1 mg tablet RxNorm: 394231 1 TABLET(S) PO DAILY 03/31/2015 08/31/2015 Inactive Coumadin 2 mg tablet RxNorm: 631292 4MG IN AM AND 1MG AT NIGHT TABLET(S) PO DAILY DIRECTED. 03/31/2015 08/31/2015 Inactive levothyroxine 88 mcg tablet RxNorm: 402469 1 Tablet(s) PO daily 03/23/2015 05/06/2015 Inactive alprazolam 0.25 mg tablet RxNorm: 537355 Tablet(s) PO 03/23/2015 04/06/2015 Inactive levothyroxine 88 mcg tablet RxNorm: 645347 1 Tablet(s) PO daily 01/28/2015 03/22/2015 Inactive levothyroxine 88 mcg tablet RxNorm: 960058 1 Tablet(s) PO daily 01/28/2015 01/27/2015 Inactive diltiazem ER 120 mg capsule,extended release RxNorm: 135730 1 Capsule(s) PO BID patient would like 4 months at a time 01/06/2015 09/28/2015 Inactive digoxin 125 mcg tablet RxNorm: 974475 Tablet(s) 1 TABLET(S) PO DAILY 12/24/2014 12/23/2014 Inactive pt will be paying palomares (On $4 list)Patient requests 90 days supply digoxin 125 mcg tablet RxNorm: 231754 Tablet(s) 1 TABLET(S) PO DAILY M W F Sat and 2 tabs on T TH 12/24/2014 05/06/2015 Inactive pt will be paying [employer]oma[employer] (On $4 list)Patient requests 90 days supply dicyclomine 20 mg tablet RxNorm: 633960 1 Tablet(s) PO daily 11/17/2014 08/31/2015 Inactive one ac dinner and up to tid prn levothyroxine 88 mcg tablet RxNorm: 875563 1 Tablet(s) PO daily 11/03/2014 01/27/2015 Inactive Premarin 0.625 mg/gram vaginal cream RxNorm: 446754 1 APPLICATION VAG 1 APPLICATOR PER VAGINA 3 TIMES PER WEEK 11/03/2014 07/30/2015 Inactive digoxin 125 mcg tablet RxNorm: 924554 1 TABLET(S) PO DAILY 09/29/2014 12/23/2014 Inactive pt will be paying [employer]oma[employer] (On $4 list)Patient requests 90 days supply digoxin 125 mcg tablet RxNorm: 603925 1 TABLET(S) PO DAILY 07/11/2014 04/06/2015 Inactive Vesicare 10 mg tablet RxNorm: 822209 1/2 Tablet(s) PO BID 05/20/2014 05/14/2015 Inactive Levaquin 500 mg tablet RxNorm: 450089 1 Tablet(s) PO daily 05/06/2014 05/08/2014 Inactive take probiotic BID while on ABT Levaquin 500 mg tablet RxNorm: 253546 1 Tablet(s) PO daily 05/02/2014 05/05/2014 Inactive take probiotic BID while on ABT diltiazem ER 120 mg capsule,extended release RxNorm: 541255 1 Capsule(s) PO BID patient would like 4 months at a time 04/29/2014 2015 Inactive Vesicare 10 mg tablet RxNorm: 296986 1/2 Tablet(s) PO BID 04/29/2014 05/19/2014 Inactive lisinopril 20 mg tablet RxNorm: 002677 1 Tablet(s) PO BID 03/20/2014 03/14/2015 Inactive diltiazem 90 mg tablet RxNorm: 946850 1/2 TABLET(S) PO QPM 03/04/2014 04/28/2014 Inactive also 180 q am diltiazem ER 120 mg capsule,extended release RxNorm: 524465 1 Capsule(s) PO daily patient would like 4 months at a time 01/29/2014 04/28/2014 Inactive Vesicare 10 mg tablet RxNorm: 277348 1 Tablet(s) PO QHS 01/14/2014 04/28/2014 Inactive Coumadin 2 mg tablet RxNorm: 769974 4mg in AM and 1mg at night Tablet(s) PO daily as directed. 12/25/2013 03/30/2015 Inactive Metanx 3 mg-35 mg-2 mg tablet RxNorm: 1 Tablet(s) PO daily 12/25/2013 11/02/2015 Inactive digoxin 125 mcg tablet RxNorm: 237024 1 Tablet(s) PO daily 12/25/2013 09/28/2014 Inactive pt will be paying [employer]oma[employer] (On $4 list) Coumadin 2 mg tablet RxNorm: 193832 7.5 wed 5mg other Tablet(s) PO as directed. 12/03/2013 12/24/2013 Inactive omeprazole 20 mg tablet,delayed release RxNorm: 526416 1 Tablet(s) PO BID 11/27/2013 04/28/2014 Inactive Coumadin 2 mg tablet RxNorm: 542481 5 mg daily Tablet(s) PO as directed. 11/26/2013 12/02/2013 Inactive 5 mg daily Xanax 0.25 mg tablet RxNorm: 039164 1 Tablet(s) PO Q6 PRN 11/11/2013 12/25/2013 Inactive alprazolam 0.25 mg tablet RxNorm: 341162 tablet oral 11/11/2013 03/22/2015 Inactive sucralfate 1 gram tablet RxNorm: 859592 1 Tablet(s) PO AC & HS 11/04/2013 11/03/2013 Inactive sucralfate 1 gram tablet RxNorm: 665955 1 Tablet(s) PO AC & HS 11/04/2013 01/02/2014 Inactive Synthroid 100 mcg tablet RxNorm: 325012 1 Tablet(s) PO daily 10/31/2013 10/25/2014 Inactive Synthroid 100 mcg tablet RxNorm: 863489 1 Tablet(s) PO daily 09/30/2013 10/29/2013 Inactive Vesicare 10 mg tablet RxNorm: 591695 1 Tablet(s) PO QHS 09/30/2013 01/13/2014 Inactive Lotemax 0.5 % eye ointment RxNorm: 5584818 ointment opht 09/06/2013 12/10/2013 Inactive levothyroxine 100 mcg tablet RxNorm: 195020 tablet oral 09/05/2013 11/02/2014 Inactive Synthroid 100 mcg tablet RxNorm: 470541 1 Tablet(s) PO daily 09/05/2013 09/29/2013 Inactive Prolia 60 mg/mL Sub-Q Syringe RxNorm: 905881 1 Milliliter(s) SQ 06/25/2013 11/02/2015 Inactive dicyclomine 20 mg tablet RxNorm: 509412 1 Tablet(s) PO daily 06/24/2013 06/18/2014 Inactive one ac dinner and up to tid prn omeprazole 20 mg tablet,delayed release RxNorm: 357277 1 Tablet(s) PO BID 06/24/2013 11/26/2013 Inactive Cipro 500 mg tablet RxNorm: 589952 1 Tablet(s) PO BID 06/20/2013 06/26/2013 Inactive diltiazem ER 120 mg capsule,extended release RxNorm: 935918 1 Capsule(s) PO daily patient would like 4 months at a time 06/03/2013 01/28/2014 Inactive Coumadin 2 mg tablet RxNorm: 090058 as directed Tablet(s) PO as directed. 05/29/2013 11/25/2013 Inactive 5 mg daily Synthroid 88 mcg tablet RxNorm: 690998 1 Tablet(s) PO daily 04/24/2013 04/23/2013 Inactive Synthroid 88 mcg tablet RxNorm: 634230 1 Tablet(s) PO daily 04/24/2013 07/28/2013 Inactive Premarin 0.625 mg/gram vaginal cream RxNorm: 439370 1 Application VAG 1 applicator per vagina 3 times per week 04/23/2013 04/17/2014 Inactive Influenza Virus Vaccine 0.5 mL RxNorm: IM 04/23/2013 04/23/2013 Inactive digoxin 125 mcg tablet RxNorm: 336017 1 Tablet(s) PO daily 02/20/2013 04/20/2013 Inactive pt will be paying palomares (On $4 list) Digox 125 mcg tablet RxNorm: 2982923 tablet oral 02/13/2013 03/20/2014 Inactive digoxin 125 mcg tablet RxNorm: 874042 1 Tablet(s) PO daily 02/13/2013 02/19/2013 Inactive diltiazem 90 mg tablet RxNorm: 589377 1/2 Tablet(s) PO QPM 02/13/2013 02/07/2014 Inactive also 180 q am Levoxyl 75 mcg tablet RxNorm: 720327 1 Tablet(s) PO 01/16/2013 04/23/2013 Inactive Coumadin 2 mg tablet RxNorm: 945839 6mg daily except 3mg on wed and fri Tablet(s) PO 01/15/2013 05/28/2013 Inactive 5 mg daily Coumadin 2 mg tablet RxNorm: 859846 6mg daily Tablet(s) PO 12/21/2012 01/14/2013 Inactive 5 mg daily silver sulfadiazine 1 % Topical Cream RxNorm: 624757 TOP apply to affected area with each dressing change 12/19/2012 12/25/2013 Inactive cephalexin 500 mg tablet RxNorm: 087828 1 Tablet(s) PO TID 12/11/2012 12/17/2012 Inactive digoxin 125 mcg tablet RxNorm: 358861 1 Tablet(s) PO daily 10/30/2012 02/12/2013 Inactive digoxin 125 mcg tablet RxNorm: 650655 2 tab tue thurs one other days Tablet(s) PO daily 10/23/2012 10/29/2012 Inactive lisinopril 10 mg tablet RxNorm: 265099 1 Tablet(s) PO daily 10/17/2012 08/14/2013 Inactive Cipro 500 mg tablet RxNorm: 769645 1 Tablet(s) PO BID 09/13/2012 09/19/2012 Inactive Coumadin 1 mg tablet RxNorm: 687544 1 Tablet(s) PO daily 09/03/2012 09/02/2012 Inactive Coumadin 1 mg tablet RxNorm: 607419 1 Tablet(s) PO daily 09/03/2012 12/21/2012 Inactive Coumadin 2 mg tablet RxNorm: 407031 Tablet(s) PO 07/25/2012 12/20/2012 Inactive 5 mg daily digoxin 125 mcg tablet RxNorm: 100459 1 Tablet(s) PO daily 06/28/2012 10/22/2012 Inactive Coumadin 2 mg tablet RxNorm: 934646 Tablet(s) PO 06/27/2012 07/24/2012 Inactive 5mg daily except 4mg on monday Coumadin 2 mg tablet RxNorm: 507539 Tablet(s) PO 06/19/2012 06/26/2012 Inactive 5mg tue wed thur sat sun4mg mond(has 2mg and 1 mg tab) digoxin 125 mcg tablet RxNorm: 859790 1 Tablet(s) PO daily 05/29/2012 06/27/2012 Inactive Coumadin 2 mg tablet RxNorm: 845583 Tablet(s) PO 05/15/2012 06/18/2012 Inactive 5mg tue thur sat sun4mg mond(has 2mg and 1 mg tab) Coumadin 2 mg tablet RxNorm: 922669 Tablet(s) PO 04/25/2012 05/14/2012 Inactive 5mg tue thru sat4mg mon frid sun(has 2mg and 1 mg tab) Metanx 3 mg-35 mg-2 mg tablet RxNorm: 1 Tablet(s) PO BID 04/18/2012 12/24/2013 Inactive dicyclomine 20 mg tablet RxNorm: 151947 1 Tablet(s) PO 04/18/2012 06/23/2013 Inactive one ac dinner and up to tid prn digoxin 125 mcg tablet RxNorm: 284327 Tablet(s) PO daily except .25 on Tuesdays and 04/09/2012 05/28/2012 Inactive omeprazole 20 mg tablet,delayed release RxNorm: 641645 1 Tablet(s) PO BID 04/09/2012 04/03/2013 Inactive digoxin 125 mcg tablet RxNorm: 608209 1 Tablet(s) PO UD daily except none on Tuesdays and 03/13/2012 04/08/2012 Inactive Premarin 0.625 mg/gram Vaginal Cream RxNorm: 348286 1 Application VAG 1 applicator per vagina 3 times per week 02/20/2012 02/13/2013 Inactive omeprazole 20 mg tablet,delayed release RxNorm: 827997 1 Tablet(s) PO BID 02/13/2012 04/08/2012 Inactive Vesicare 10 mg tablet RxNorm: 133897 1 Tablet(s) PO QHS 02/13/2012 02/06/2013 Inactive Diflucan 150 mg tablet RxNorm: 754911 1 Tablet(s) PO daily 02/13/2012 02/19/2012 Inactive omeprazole 20 mg tablet,delayed release RxNorm: 181176 1 Tablet(s) PO BID 01/06/2012 02/12/2012 Inactive Calcium 600 + D(3) 600 mg (1,500)-200 unit Tab RxNorm: 024950 2 Tablet(s) PO BID 01/06/2012 08/31/2015 Inactive diltiazem 90 mg tablet RxNorm: 493518 1/2 Tablet(s) PO QPM 12/26/2011 02/12/2013 Inactive also 180 q am diltiazem ER 180 mg Cap RxNorm: 439731 1 Capsule(s) PO QAM 12/26/2011 04/08/2012 Inactive 45mg q hs Flagyl 500 mg Tab RxNorm: 060114 1 Tablet(s) PO BID 12/14/2011 12/20/2011 Inactive dicyclomine 10 mg Cap RxNorm: 794106 1 Capsule(s) PO AC & HS 12/01/2011 12/25/2011 Inactive Levaquin 500 mg Tab RxNorm: 944411 1 Tablet(s) PO daily 11/23/2011 11/29/2011 Inactive Rocephin 500 mg Solution for Injection RxNorm: 3283507 Inj 11/23/2011 11/23/2011 Inactive acyclovir 400 mg Tab RxNorm: 460977 1 Tablet(s) PO QID 11/10/2011 11/19/2011 Inactive acyclovir 400 mg Tab RxNorm: 903767 1 Tablet(s) PO QID 11/10/2011 11/09/2011 Inactive lisinopril 20 mg Tab RxNorm: 163416 1 Tablet(s) PO daily 10/03/2011 11/27/2011 Inactive lisinopril 20 mg Tab RxNorm: 397415 1 Tablet(s) PO daily 08/08/2011 10/02/2011 Inactive Reclast 5 mg/100 mL IV RxNorm: 044474 Milliliter(s) IV Yearly 06/08/2011 01/16/[address] Hansen manages Rocephin 500 mg Solution for Injection RxNorm: 7061262 1 Milliliter(s) Inj 03/04/2011 08/08/2011 Inactive Ceftin 500 mg Tab RxNorm: 256015 1 Tablet(s) PO BID 03/04/2011 08/08/2011 Inactive Vitamin D3 1,000 unit tablet RxNorm: 731870 2 Tablet(s) PO daily No Start Date Active Stool Softener 100 mg tablet RxNorm: 4574442 2 Tablet(s) PO QHS No Start Date Active Beano tablet RxNorm: 2-3 Tablet(s) PO as needed No Start Date Active Probiotic Pearls 15 mg (1 billion cell) capsule,delayed release RxNorm: 1 Capsule(s) PO daily No Start Date Active Lipitor 10 mg tablet RxNorm: 228406 1 Tablet(s) PO daily No Start Date Active Miralax 17 gram oral powder packet RxNorm: 226095 1/2 packet PO QHS No Start Date Active multivitamin Tab RxNorm: 1 Tablet(s) PO daily No Start Date Active Tylenol Extra Strength 500 mg tablet RxNorm: 429265 2 Tablet(s) PO as needed No Start Date Active Combigan 0.2 %-0.5 % eye drops RxNorm: 691111 1 Drop(s) OPH BID No Start Date Active 1 drop twice daily left eye Lexapro 5 mg tablet RxNorm: 207441 1 Tablet(s) PO daily No Start Date Active Tatiana Allergy 180 mg tablet RxNorm: 413904 1 Tablet(s) PO daily No Start Date Active Lotemax 0.5 % eye drops,suspension RxNorm: 817112 1 Drop(s) OPH right eye BID No Start Date Active Levoxyl 50 mcg tablet RxNorm: 914966 1 Tablet(s) PO daily No Start Date 01/15/2013 Inactive lisinopril-hydrochlorothiazide 20 mg-25 mg Tab RxNorm: 728781 1 Tablet(s) PO daily No Start Date 08/07/2011 Inactive Metanx 3 mg-35 mg-2 mg tablet RxNorm: 1 Tablet(s) PO daily No Start Date 04/17/2012 Inactive diltiazem CD 120 mg capsule,extended release 24 hr RxNorm: 619992 1 Capsule(s) PO daily No Start Date 09/28/2015 Inactive lisinopril 20 mg tablet RxNorm: 270171 Tablet(s) PO No Start Date Active Lumigan 0.01 % Eye Drops RxNorm: 2115549 1 Drop(s) OPH daily Left eye No Start Date 12/10/2013 Inactive prednisolone acetate 1 % Eye Drops, Susp RxNorm: 1672162 1 Drop(s) OPH BID 1 drop right eye am and hs No Start Date 11/02/2015 Inactive Eliquis 5 mg tablet RxNorm: 2693875 1 Tablet(s) PO BID No Start Date 06/08/2016 Inactive potassium gluconate (bulk) Misc RxNorm: Miscellaneous No Start Date 12/25/2011 Inactive Calcium 600 + D(3) 600 mg (1,500)-200 unit Tab RxNorm: 093860 3 Tablet(s) PO daily No Start Date 2012 Inactive Zyrtec 10 mg tablet RxNorm: 5023172 1 Tablet(s) PO daily No Start Date 08/02/2016 Inactive Synthroid 100 mcg tablet RxNorm: 549549 1 Tablet(s) PO daily No Start Date 09/04/2013 Inactive metoprolol succinate ER 50 mg tablet,extended release 24 hr RxNorm: 228519 1 Tablet(s) PO daily No Start Date 03/23/2016 Inactive Carafate 100 mg/mL oral suspension RxNorm: 442960 2 Teaspoon(s) PO as needed with reflux symptoms No Start Date 06/03/2018 Inactive Metanx 3 mg-35 mg-2 mg tablet RxNorm: 1 Tablet(s) PO daily 2pm No Start Date 11/02/2015 Inactive Lexapro 5 mg tablet RxNorm: 698433 1 Tablet(s) PO daily No Start Date 08/18/2015 Inactive Iron (dried) oral RxNorm: 59641 oral No Start Date 11/02/2015 Inactive timolol 0.5 % Eye Drops RxNorm: 703617 1 Drop(s) OPH daily left eye No Start Date 12/18/2013 Inactive multivitamin Cap RxNorm: 1 Capsule(s) PO daily No Start Date 12/25/2011 Inactive dicyclomine 10 mg Cap RxNorm: 733052 2 Capsule(s) PO daily No Start Date 11/30/2011 Inactive silver sulfadiazine 1 % Topical Cream RxNorm: 207022 TOP apply to affected area with each dressing change No Start Date 12/18/2012 Inactive magnesium oxide 400 mg Tab RxNorm: 748551 1 Tablet(s) PO daily No Start Date 11/02/2015 Inactive Pradaxa 75 mg Cap RxNorm: 7877443 1 Capsule(s) PO BID No Start Date 04/09/2012 Inactive magnesium oxide 400 mg Tab RxNorm: 314153 2 Tablet(s) PO daily magnesium plus zinc No Start Date 12/25/2011 Inactive biotin 1000 mg RxNorm: 1 PO daily No Start Date 12/25/2011 Inactive Synthroid 50 mcg Tab RxNorm: 978115 Tablet(s) PO No Start Date 12/25/2011 Inactive diltiazem ER 180 mg Cap RxNorm: 388007 1 Capsule(s) PO daily No Start Date 12/25/2011 Inactive 1 D 3 1000 iu Oral RxNorm: Oral No Start Date 12/25/2011 Inactive Coumadin 2 mg tablet RxNorm: 184123 Tablet(s) PO No Start Date 04/24/2012 Inactive 5mg tue mmgn7cm mon fri sat sun(has 2mg and 1 mg tab) dicyclomine 20 mg tablet RxNorm: 855033 Tablet(s) PO No Start Date 04/17/2012 Inactive one ac dinner and up to tid prn lactobacillus acidophilus tablet RxNorm: 1 Tablet(s) PO daily No Start Date 11/03/2015 Inactive Eliquis 2.5 mg tablet RxNorm: 7908893 1 Tablet(s) PO BID No Start Date 07/25/2017 Inactive Levoxyl 75 mcg Tab RxNorm: 913579 1 Tablet(s) PO daily No Start Date 10/02/2011 Inactive digoxin 125 mcg tablet RxNorm: 581285 1 Tablet(s) PO daily No Start Date 03/12/2012 Inactive pantoprazole 40 mg tablet,delayed release RxNorm: 650755 1 Tablet(s) PO BID No Start Date 01/04/2016 Inactive cyclobenzaprine 5 mg tablet RxNorm: 600350 1/2 Tablet(s) PO Q8 PRN No Start Date 10/24/2016 Inactive diltiazem 90 mg Tab RxNorm: 900238 1/2 Tablet(s) PO QPM No Start Date 12/25/2011 Inactive Mirapex 1 mg Tab RxNorm: 139387 1 Tablet(s) PO QHS No Start Date 12/25/2011 Inactive Xanax 0.25 mg tablet RxNorm: 827536 1 Tablet(s) PO Q6 PRN No Start Date 11/10/2013 Inactive Premarin 0.625 mg/gram Vaginal Cream RxNorm: 592987 1 Application VAG 1 applicator per vagina 3 times per week No Start Date 02/19/2012 Inactive Synthroid 75 mcg Tab RxNorm: 295363 1 Tablet(s) PO daily No Start Date 04/17/2012 Inactive lisinopril 40 mg Tab RxNorm: 149164 1 Tablet(s) PO daily No Start Date 12/25/2011 Inactive Glucosamine Chondroitin Complex Advanced [id number]-1.65mg Tab RxNorm: 2 Tablet(s) PO daily No Start Date 08/08/2011 Inactive famotidine 20 mg tablet RxNorm: 613451 1 Tablet(s) PO QAM No Start Date 11/02/2015 Inactive cranberry extract 250 mg Tab RxNorm: 182513 2 Tablet(s) PO daily No Start Date 08/08/2011 Inactive Vitamin D3 1,000 unit capsule RxNorm: 869657 1 Capsule(s) PO daily No Start Date 08/31/2015 Inactive aspirin 81 mg Tab, Delayed Release RxNorm: 290657 1 Tablet(s) PO daily No Start Date 08/31/2015 Inactive diltiazem ER 120 mg capsule,extended release RxNorm: 875458 1 Capsule(s) PO daily patient would like 4 months at a time No Start Date 06/02/2013 Inactive omeprazole 20 mg Tab, Delayed Release RxNorm: 785614 2 Tablet(s) PO QHS No Start Date 2012 Inactive lisinopril 10 mg tablet RxNorm: 469051 1/2 Tablet(s) PO daily No Start Date 10/16/2012 Inactive Pred Forte 1 % Eye Drops RxNorm: 654963 1 Drop(s) OPH daily right eye No Start Date 12/25/2013 Inactive calcium carbonate 400 mg Chewable Tab RxNorm: 805475 1 Tablet(s) PO daily No Start Date 08/08/2011 Inactive Vesicare 10 mg tablet RxNorm: 138046 1 Tablet(s) PO QHS No Start Date 02/12/2012 Inactive Symbicort 160 mcg-4.5 mcg/actuation HFA aerosol inhaler RxNorm: 5183211 2 Puff(s) INH BID No Start Date 12/13/2017 Inactive potassium 99 mg tablet RxNorm: 1 Tablet(s) PO QPM No Start Date 12/25/2013 Inactive timolol 0.25 % Eye Drops RxNorm: 779156 1 Drop(s) OPH daily Left eye No Start Date 04/17/2012 Inactive diltiazem ER 90 mg capsule,extended release 12 hr RxNorm: 428916 1/2 Capsule(s) PO QPM No Start Date 04/28/2014 Inactive cyclobenzaprine 5 mg Tab RxNorm: 403442 1/2-1 Tablet(s) PO Q8 PRN No Start Date 12/25/2011 Inactive 1/2 - 1 tab q 8hrs prn muscle spasms Medication Administered Medication Codes Instructions Start Date Status Influenza Virus Vaccine 0.5 mL RxNorm: 04/23/2013 No longer Active Rocephin 500 mg Solution for Injection RxNorm: 5375648 11/23/2011 No longer Active Immunizations Vaccine Codes [...] hypertension ICD-10: I10 ICD-9: 401.9 01/31/2018 Other long term care social worker (current) drug therapy ICD-10: Z79.899 ICD-9: V58.83 [...] Ord62 ANION GAP 12 09/25/2018 Comp Metabolic Fuc290 NA 130 mEq/L 09/12/2018 Comp Metabolic Vtu892 K 4.2 mEq/L 09/12/2018 Comp Metabolic Nog928 CL 98 mEq/L 09/12/2018 Comp Metabolic Rir344 CO2 23.0 mEq/L 09/12/2018 Comp Metabolic Mwi607 ANION GAP 13 09/12/2018 Comp Metabolic Ccg758 GLUCOSE 129 mg/dL 09/12/2018 Comp Metabolic Buh161 Creat 1.0 mg/dL 09/12/2018 Comp Metabolic Ixv313 eGFR 58 ml/min/1.73m2 09/12/2018 Comp Metabolic Uyl780 BUN 28 mg/dL 09/12/2018 Comp Metabolic Mvc881 B/C Ratio 28.9 Ratio 09/12/2018 Comp Metabolic Ajg755 CALCIUM 9.1 mg/dL 09/12/2018 Comp Metabolic Tjr237 ALK PHOS 59 U/L 09/12/2018 Comp Metabolic Xkq732 AST(SGOT) 21 U/L 09/12/2018 Comp Metabolic Pne146 ALT(SGPT) 19 U/L 09/12/2018 Comp Metabolic Zlx715 BILI T 0.8 mg/dL 09/12/2018 Comp Metabolic Bxs127 ALBUMIN 3.9 g/dL 09/12/2018 Comp Metabolic Kip996 TPRO 6.5 g/dL 09/12/2018 Comp Metabolic Kfj915 GLOB 2.6 g/dL 09/12/2018 Comp Metabolic Mrh065 A/G Ratio 1.5 Ratio 09/12/2018 Comp Metabolic Fcq545 Osmo 268 mOsmo 09/12/2018 Tsh Ord6 TSH (3rd IS) 12.84 uIU/mL 09/12/2018 Influenza A+B Ewb624 Influ A+B Negative 09/12/2018 Cbc With Differential [...] 12.3 % 09/12/2018 Cbc With Differential Ord2 [place]% 12.0 % 09/12/2018 Cbc With Differential Ord2 [...] 0.85 K/ul 09/12/2018 Cbc With Differential Ord2 [place] ABS# 0.8 K/ul 09/12/2018 Cbc With Differential Ord2 Eos ABS# 0.1 K/ul 09/12/2018 Cbc With Differential Ord2 Baso ABS# 0.0 K/ul 09/12/2018 Free T4 Rcj662 FREE T4 1.10 ng/dL 09/12/2018 Free T4 Loe262 FREE T4 1.19 ng/dL 05/08/2018 Digoxin Ord9 DIGOXIN 0.6 NG/ML 05/08/2018 Tsh Ord6 TSH (3rd IS) 10.58 uIU/mL 05/08/2018 Tsh Ord6 TSH (3rd IS) 1.07 uIU/mL 01/31/2018 Free T4 Guk024 FREE T4 1.63 ng/dL 01/31/2018 Digoxin Ord9 DIGOXIN 0.8 NG/ML 01/31/2018 C RAP A SC [id number] Strep A Negative 11/21/2016 Thyroid Antibodies 475890 THYROGLOBULIN ANTIBODY . 11/04/2016 Thyroid Antibodies 525106 THYROGLOBULIN ANTIBODY 919 IU/mL 11/04/2016 Thyroid Antibodies 243936 THYROID PEROXIDASE (TPO) AB . 11/04/2016 Thyroid Antibodies 166676 THYROID PEROXIDASE (TPO) AB 10 IU/mL 11/04/2016 Total T3 Ord42 TT3 0.64 ng/ml 11/03/2016 Free T4 Hsu324 FREE T4 1.39 ng/dL 11/02/2016 Tsh Ord6 [...] Differential Ord2 RDW 13.8 % 05/26/2015 Pt Une0988 PT 25.0 seconds 05/26/2015 Pt Tuo3228 INR 2.4 05/26/2015 Pt Hzm7706 Low Intensity - 1.5-2.0 05/26/2015 Pt Utg3497 Mod intensity - 2.0-3.0 05/26/2015 Pt Jgt1324 Hi intensity - 3.0-4.0 05/26/2015 Uric Acid [...] Digoxin Ord9 DIGOXIN 0.6 NG/ML 05/06/2015 Pt Xqj7892 PT 23.3 seconds 05/06/2015 Pt Wka8739 INR 2.1 05/06/2015 Pt Xcm2115 Low Intensity - 1.5-2.0 05/06/2015 Pt Iii7050 Mod intensity - 2.0-3.0 05/06/2015 Pt Cpn2353 Hi intensity - 3.0-4.0 05/06/2015 Free T4 Azu140 FREE T4 1.65 ng/dL 05/06/2015 Comp Metabolic Ctv224 NA 132 mEq/L 05/06/2015 Comp Metabolic Rat044 K 4.1 mEq/L 05/06/2015 Comp Metabolic Gpk020 CL 98 mEq/L 05/06/2015 Comp Metabolic Kgf843 CO2 27.0 mEq/L 05/06/2015 Comp Metabolic Hjb825 ANION GAP 11 05/06/2015 Comp Metabolic Jsu235 GLUCOSE 71 mg/dL 05/06/2015 Comp Metabolic Hdo838 Creat 0.7 mg/dL 05/06/2015 Comp Metabolic Ate523 eGFR 82 ml/min/1.73m2 05/06/2015 Comp Metabolic Dyx049 BUN 16 mg/dL 05/06/2015 Comp Metabolic Git592 B/C Ratio 22.2 Ratio 05/06/2015 Comp Metabolic Zue606 CALCIUM 9.4 mg/dL 05/06/2015 Comp Metabolic Ssy073 ALK PHOS 60 U/L 05/06/2015 Comp Metabolic Nyv535 AST(SGOT) 22 U/L 05/06/2015 Comp Metabolic Hjr808 ALT(SGPT) 24 U/L 05/06/2015 Comp Metabolic Kly929 BILI T 0.8 mg/dL 05/06/2015 Comp Metabolic Wij141 ALBUMIN 4.3 g/dL 05/06/2015 Comp Metabolic Zgg058 TPRO 7.6 g/dL 05/06/2015 Comp Metabolic Dhi474 GLOB 3.3 g/dL 05/06/2015 Comp Metabolic Tge402 A/G Ratio 1.3 Ratio 05/06/2015 Comp Metabolic Has151 Osmo 264 mOsmo 05/06/2015 DIGOXIN 1774865 DIGOXIN 1.1 NG/ML 05/15/2013 PT/MC 6281472 PRO TIME 21.7 SEC 05/15/2013 PT/MC 8653905 INR MCMC 2.0 05/15/2013 CHEM 14 0119837 AST 24 U/L 04/23/2013 CHEM 14 4473121 ALT 31 IU/L 04/23/2013 CHEM 14 3691861 BUN 13 MG/DL 04/23/2013 CHEM 14 7203595 ALBUMIN 4.1 GM/DL 04/23/2013 CHEM 14 4176315 CHLORIDE 103 MMOL/L 04/23/2013 CHEM 14 1161707 BILI TOT 0.5 MG/DL 04/23/2013 CHEM 14 2735873 ALK PHOS 44 U/L 04/23/2013 CHEM 14 6607154 SODIUM 137 MMOL/L 04/23/2013 CHEM 14 5185496 CREATININE 0.61 MG/DL 04/23/2013 CHEM 14 3460340 CALCIUM 9.5 MG/DL 04/23/2013 CHEM 14 4224320 POTASSIUM 4.0 MMOL/L 04/23/2013 CHEM 14 1426265 PROT TOT 6.6 GM/DL 04/23/2013 CHEM 14 0002709 GLUCOSE 99 MG/DL 04/23/2013 CHEM 14 8533651 BICARB 27 MMOL/L 04/23/2013 CHEM 14 2450248 ANION GAP 7 MEQ/L 04/23/2013 GFR CALC 2500086 GFR AA >60 ML/MIN 04/23/2013 GFR CALC 4438960 GFR NON-AA >60 ML/MIN 04/23/2013 TSH 3493496 TSH 4.204 uIU/ML 04/23/2013 CBC 9717309 WBC 6.7 10e9/L 04/23/2013 CBC 8519465 RBC 4.19 10e12/L 04/23/2013 CBC 6653761 HGB 13.2 g/dL 04/23/2013 CBC 6203287 HCT DET 39.2 % 04/23/2013 CBC 3692601 MCV 93.6 fL 04/23/2013 CBC 4930143 MCH 31.5 pg 04/23/2013 CBC 0376674 MCHC 33.7 g/dL 04/23/2013 CBC 7629725 PLT 202 10e9/L 04/23/2013 CBC 2661379 MPV 11.4 fL 04/23/2013 CBC 3302461 YANIRA % 70.5 % 04/23/2013 CBC 0587348 LY % 19.6 % 04/23/2013 CBC 2013951 MON % 8.2 % 04/23/2013 CBC 4975526 EOS % 1.6 % 04/23/2013 CBC 5505114 BASO % 0.1 % 04/23/2013 CBC 9308602 RDW 13.7 % 04/23/2013 CBC 7104619 ABS YANIRA 4.72 10e9/L 04/23/2013 CBC 1675955 ABS LYMPH 1.31 10e9/L 04/23/2013 CBC 6344372 ABS MONO 0.55 10e9/L 04/23/2013 CBC 9824443 ABS EOS 0.11 10e9/L 04/23/2013 CBC 4403633 ABS BASO 0.01 10e9/L 04/23/2013 CBC 3736818 RDW-SD 45.7 fL 04/23/2013 PT/MC 7392522 PRO TIME 13.4 SEC 12/17/2012 PT/MC 0014546 INR MCMC 1.0 12/17/2012 PT/MC 7790884 PRO TIME 16.6 SEC 12/14/2012 PT/MC 8552129 INR MCMC 1.4 12/14/2012 PT/MC 2419901 PRO TIME 27.2 SEC 12/11/2012 PT/MC 8529627 INR MCMC 2.6 12/11/2012 DIGOXIN 8463882 DIGOXIN 2.1 NG/ML 03/08/2012 GFR CALC 4505703 GFR AA >60 ML/MIN 03/08/2012 GFR CALC 1796587 GFR NON-AA >60 ML/MIN 03/08/2012 CHEM 14 20280112 AST 16 U/L 03/08/2012 CHEM 14 20280112 ALT 14 IU/L 03/08/2012 CHEM 14 20280112 BUN 10 MG/DL 03/08/2012 CHEM 14 20280112 ALBUMIN 4.2 GM/DL 03/08/2012 CHEM 14 7675928 CHLORIDE 100 MMOL/L 03/08/2012 CHEM 14 3005152 BILI TOT 0.5 MG/DL 03/08/2012 CHEM 14 5169727 ALK PHOS 59 U/L 03/08/2012 CHEM 14 2324359 SODIUM 136 MMOL/L 03/08/2012 CHEM 14 3797295 CREATININE 0.65 MG/DL 03/08/2012 CHEM 14 5471464 CALCIUM 9.4 MG/DL 03/08/2012 CHEM 14 3077561 POTASSIUM 3.9 MMOL/L 03/08/2012 CHEM 14 6502264 PROT TOT 6.7 GM/DL 03/08/2012 CHEM 14 2002976 GLUCOSE 90 MG/DL 03/08/2012 CHEM 14 8913577 BICARB 30 MMOL/L 03/08/2012 CHEM 14 8446152 ANION GAP 6 MEQ/L 03/08/2012 CHEM 14 8006690 AST 16 U/L 11/23/2011 CHEM 14 9370123 ALT 14 IU/L 11/23/2011 CHEM 14 1659303 BUN 11 MG/DL 11/23/2011 CHEM 14 0373980 ALBUMIN 4.1 GM/DL 11/23/2011 CHEM 14 3991845 CHLORIDE 100 MMOL/L 11/23/2011 CHEM 14 6687743 BILI TOT 0.5 MG/DL 11/23/2011 CHEM 14 5050269 ALK PHOS 50 U/L 11/23/2011 CHEM 14 8625756 SODIUM 135 MMOL/L 11/23/2011 CHEM 14 1625758 CREATININE 0.57 MG/DL 11/23/2011 CHEM 14 3629059 CALCIUM 9.1 MG/DL 11/23/2011 CHEM 14 2965114 POTASSIUM 4.5 MMOL/L 11/23/2011 CHEM 14 5234618 PROT TOT 6.5 GM/DL 11/23/2011 CHEM 14 7316021 GLUCOSE 89 MG/DL 11/23/2011 CHEM 14 1449331 BICARB 28 MMOL/L 11/23/2011 CHEM 14 3844492 ANION GAP 7 MEQ/L 11/23/2011 GFR CALC 3367194 GFR AA >60 ML/MIN 11/23/2011 GFR CALC 6064142 GFR NON-AA >60 ML/MIN 11/23/2011 CBC 2204063 WBC 5.1 10e9/L 11/23/2011 CBC 2787440 RBC 4.06 10e12/L 11/23/2011 CBC 1191326 HGB 12.5 g/dL 11/23/2011 CBC 5631304 HCT DET 37.3 % 11/23/2011 CBC 5449643 MCV 91.9 fL 11/23/2011 CBC 6709599 MCH 30.8 pg 11/23/2011 CBC 0296503 MCHC 33.5 g/dL 11/23/2011 CBC 2033157 PLT 222 10e9/L 11/23/2011 CBC 7611404 MPV 10.8 fL 11/23/2011 CBC 2158524 YANIRA % 64.2 % 11/23/2011 CBC 2885884 LY % 22.3 % 11/23/2011 CBC 4128132 MON % 11.3 % 11/23/2011 CBC 6039981 EOS % 1.8 % 11/23/2011 CBC 8064128 BASO % 0.4 % 11/23/2011 CBC 9775244 RDW 13.6 % 11/23/2011 CBC 9512070 ABS YANIRA 3.27 10e9/L 11/23/2011 CBC 6197307 ABS LYMPH 1.14 10e9/L 11/23/2011 CBC 7205477 ABS MONO 0.58 10e9/L 11/23/2011 CBC 9043905 ABS EOS 0.09 10e9/L 11/23/2011 CBC 3507972 ABS BASO 0.02 10e9/L 11/23/2011 CBC 5118063 RDW-SD 44.5 fL 11/23/2011 UA 57534 Specific [place] 1.005 03/04/2011 UA 30255 PH 6 03/04/2011 UA 56950 GLUCOSE N 03/04/2011 UA 58391 Protein N 03/04/2011 UA 96595 Blood ++ 03/04/2011 UA 10299 Bilirubin N 03/04/2011 UA 59264 Ketones N 03/04/2011 UA 88872 Urobilinogen N 03/04/2011 UA 25223 Nitrite N 03/04/2011 UA 84301 Leukocytes N 03/04/2011 URINALYSIS NONAUTO W/O SCOPE 28992 Specific [place] 1.010 DateTime(Free Text in Aprima) URINALYSIS NONAUTO W/O SCOPE 91665 PH 6.5 DateTime(Free Text in Aprima) URINALYSIS NONAUTO W/O SCOPE 40497 GLUCOSE neg DateTime(Free Text in Aprima) URINALYSIS NONAUTO W/O SCOPE 46899 Protein neg DateTime(Free Text in Aprima) URINALYSIS NONAUTO W/O SCOPE 68058 Blood 3+ DateTime(Free Text in Aprima) URINALYSIS NONAUTO W/O SCOPE 55229 Bilirubin neg DateTime(Free Text in Aprima) URINALYSIS NONAUTO W/O SCOPE 96705 Ketones neg DateTime(Free Text in Aprima) URINALYSIS NONAUTO W/O SCOPE 22549 Urobilinogen neg DateTime(Free Text in Aprima) URINALYSIS NONAUTO W/O SCOPE 86349 Nitrite neg DateTime(Free Text in Aprima) URINALYSIS NONAUTO W/O SCOPE 91387 Leukocytes neg DateTime(Free Text in Aprima) URINALYSIS NONAUTO W/O SCOPE 81999 Specific [place] 1.010 DateTime(Free Text in Aprima) URINALYSIS NONAUTO W/O SCOPE 26522 PH 5 DateTime(Free Text in Aprima) URINALYSIS NONAUTO W/O SCOPE 50267 GLUCOSE neg DateTime(Free Text in Aprima) URINALYSIS NONAUTO W/O SCOPE 05437 Protein neg DateTime(Free Text in Aprima) URINALYSIS NONAUTO W/O SCOPE 60299 Blood 3+ DateTime(Free Text in Aprima) URINALYSIS NONAUTO W/O SCOPE 88830 Bilirubin neg DateTime(Free Text in Aprima) URINALYSIS NONAUTO W/O SCOPE 99095 Ketones neg DateTime(Free Text in Aprima) URINALYSIS NONAUTO W/O SCOPE 68956 Urobilinogen neg DateTime(Free Text in Aprima) URINALYSIS NONAUTO W/O SCOPE 15001 Nitrite neg DateTime(Free Text in Aprima) URINALYSIS NONAUTO W/O SCOPE 38220 Leukocytes neg DateTime(Free Text in Aprima) URINALYSIS NONAUTO W/O SCOPE 87058 Specific [place] 1.005 DateTime(Free Text in Aprima) URINALYSIS NONAUTO W/O SCOPE 73880 PH 8.5 DateTime(Free Text in Aprima) URINALYSIS NONAUTO W/O SCOPE 84239 GLUCOSE neg DateTime(Free Text in Aprima) URINALYSIS NONAUTO W/O SCOPE 37763 Protein neg DateTime(Free Text in Aprima) URINALYSIS NONAUTO W/O SCOPE 38487 Blood 1+ DateTime(Free Text in Aprima) URINALYSIS NONAUTO W/O SCOPE 78616 Bilirubin neg DateTime(Free Text in Aprima) URINALYSIS NONAUTO W/O SCOPE 97334 Ketones neg DateTime(Free Text in Aprima) URINALYSIS NONAUTO W/O SCOPE 09110 Urobilinogen neg DateTime(Free Text in Aprima) URINALYSIS NONAUTO W/O SCOPE 97669 Nitrite neg DateTime(Free Text in Aprima) URINALYSIS NONAUTO W/O SCOPE 82698 Leukocytes neg DateTime(Free Text in Aprima) URINALYSIS NONAUTO W/O SCOPE 73010 Specific [place] 1.005 DateTime(Free Text in Aprima) URINALYSIS NONAUTO W/O SCOPE 30442 PH 7 DateTime(Free Text in Aprima) URINALYSIS NONAUTO W/O SCOPE 67076 GLUCOSE neg DateTime(Free Text in Aprima) URINALYSIS NONAUTO W/O SCOPE 31375 Protein neg DateTime(Free Text in Aprima) URINALYSIS NONAUTO W/O SCOPE 21163 Blood large DateTime(Free Text in Aprima) URINALYSIS NONAUTO W/O SCOPE 70283 Bilirubin neg DateTime(Free Text in Aprima) URINALYSIS NONAUTO W/O SCOPE 48820 Ketones neg DateTime(Free Text in Aprima) URINALYSIS NONAUTO W/O SCOPE 82347 Urobilinogen 0.2 DateTime(Free Text in Aprima) URINALYSIS NONAUTO W/O SCOPE 26569 Nitrite neg DateTime(Free Text in Aprima) URINALYSIS NONAUTO W/O SCOPE 83371 Leukocytes neg DateTime(Free Text in Aprima) URINALYSIS NONAUTO W/O SCOPE 85479 Specific [place] 1.005 DateTime(Free Text in Aprima) URINALYSIS NONAUTO W/O SCOPE 71921 PH 7.5 DateTime(Free Text in Aprima) URINALYSIS NONAUTO W/O SCOPE 07478 GLUCOSE DateTime(Free Text in Aprima) URINALYSIS NONAUTO W/O SCOPE 19453 Protein trace DateTime(Free Text in Aprima) URINALYSIS NONAUTO W/O SCOPE 92423 Blood 4+ DateTime(Free Text in Aprima) URINALYSIS NONAUTO W/O SCOPE 47236 Bilirubin DateTime(Free Text in Aprima) URINALYSIS NONAUTO W/O SCOPE 73662 Ketones DateTime(Free Text in Aprima) URINALYSIS NONAUTO W/O SCOPE 28766 Urobilinogen DateTime(Free Text in Aprima) URINALYSIS NONAUTO W/O SCOPE 92230 Nitrite DateTime(Free Text in Aprima) URINALYSIS NONAUTO W/O SCOPE 09438 Leukocytes trace DateTime(Free Text in Apr) Review [...] normal 01/23/2017 None Full Exam - General 1995 Ears/Nose/Throat lips/teeth/gingiva Overall: benign lips 01/23/2017 None [...] FLU VACC PRSV FREE INC ANTIG CPT-4: 28689 03/27/2017 PPPS, SUBSEQ VISIT CPT- 4: G0439 01/23/2017 URINALYSIS NONAUTO W/O SCOPE CPT-4: 47419 05/17/2016 ADMIN INFLUENZA VIRUS VAC CPT-4: G0008 03/24/2016 FLU VACC PRSV FREE INC ANTIG CPT-4: 35007 03/24/2016 ADMIN PNEUMOCOCCAL VACCINE SNOMED CT: 42635114 CPT-4: G0009 05/13/2015 PNEUMOCOCCAL VACC [address]: 53780822 CPT-4: 27229 05/13/2015 Pneumococcal Polysaccharide Vaccine, 23-Valent, Ad Assigned to/Mela Bledsoe CPT-4: 00620Jhisldh 07/11/2014 ADMIN PNEUMOCOCCAL VACCINE SNOMED CT: 44535720 CPT-4: G0009 07/11/2014 URINALYSIS NONAUTO W/O SCOPE CPT-4: 86535 05/14/2014 URINALYSIS NONAUTO W/O SCOPE CPT-4: 41750 05/06/2014 URINALYSIS NONAUTO W/O SCOPE CPT-4: 94355 04/29/2014 ADMIN INFLUENZA VIRUS VAC CPT-4: G0008 03/20/2014 FLU VAC NO PRSV 4 SCOTT 3 YRS+ Assigned to/Mela Bledsoe CPT-4: 59424Eyjonyq 03/20/2014 URINALYSIS NONAUTO W/O SCOPE CPT-4: 63074 07/29/2013 URINALYSIS NONAUTO W/O SCOPE CPT-4: 42663 07/01/2013 URINALYSIS NONAUTO W/O SCOPE CPT-4: 73511 06/20/2013 ROUTINE VENIPUNCTURE CPT- 4: 15835 05/15/2013 ROUTINE VENIPUNCTURE CPT- 4: 29593 04/23/2013 ADMIN INFLUENZA VIRUS VAC CPT-4: G0008 04/23/2013 FLULAVAL VACC, 3 YRS & >, IM CPT-4: Q2036 04/23/2013 ROUTINE VENIPUNCTURE CPT- 4: 03230 12/17/2012 ROUTINE VENIPUNCTURE CPT- 4: 71055 12/14/2012 ROUTINE VENIPUNCTURE CPT- 4: 96637 12/11/2012 PRESCRIP TRANSMIT VIA ERX SY CPT-4: G8553 12/11/2012 PRESCRIP TRANSMIT VIA ERX SY CPT-4: G8553 10/30/2012 URINALYSIS NONAUTO W/O SCOPE CPT-4: 58940 09/13/2012 ADMIN INFLUENZA VIRUS VAC CPT-4: G0008 04/18/2012 FLULAVAL VACC, 3 YRS & >, IM CPT-4: Q2036 04/18/2012 URINALYSIS NONAUTO W/O SCOPE CPT-4: 87843 03/13/2012 ROUTINE VENIPUNCTURE CPT- 4: 44124 03/08/2012 URINALYSIS NONAUTO W/O SCOPE CPT-4: 15986 02/13/2012 PRESCRIP TRANSMIT VIA ERX SY CPT-4: G8553 02/13/2012 ROCEPHIN, PER 250 MG CPT- 4: J0696 11/23/2011 ROUTINE VENIPUNCTURE CPT- 4: 79398 11/23/2011 URINALYSIS NONAUTO W/O SCOPE CPT-4: 84490 11/23/2011 PRESCRIP TRANSMIT VIA ERX SY CPT-4: G8553 11/23/2011 REMOVE IMPACTED EAR WAX UNI CPT-4: 99235 10/17/2011 PRESCRIP TRANSMIT VIA ERX SY CPT-4: G8553 10/03/2011 PRESCRIP TRANSMIT VIA ERX SY CPT-4: G8553 08/08/2011 URINALYSIS NONAUTO W/O SCOPE CPT-4: 94203 03/15/2011 URINALYSIS NONAUTO W/O SCOPE CPT-4: 97922 03/04/2011 THER/PROPH/DIAG INJ SC/IM CPT-4: 83808 03/04/2011 ROCEPHIN, PER 250 MG CPT- 4: J0696 03/04/2011 Vital Signs Date Vital 10/09/2018 Blood Pressure 1: 126/60 Code: 8480-6 BMI: 19.9 Code: 13174-5 Heart Rate 1: 66 bpm Height: 5' SpO2: 96% Weight: 102 lbs 09/12/2018 Blood Pressure 1: 156/72 Code: 8480-6 BMI: 19.9 Code: 12964-7 Heart Rate 1: 68 bpm Height: 5' Temperature: 36.6 (C) / 97.8 (F) Weight: 102 lbs 08/14/2018 Blood Pressure 1: 136/68 Code: 8480-6 BMI: 21.1 Code: 66507-7 Heart Rate 1: 92 bpm Height: 5' Weight: 108 lbs 07/26/2018 Blood Pressure 1: 128/76 Code: 8480-6 BMI: 21.1 Code: 77021-0 Heart Rate 1: 88 bpm Height: 5' Weight: 108 lbs 06/04/2018 Blood Pressure 1: 124/72 Code: 8480-6 BMI: 21.3 Code: 60086-4 Heart Rate 1: 98 bpm Height: 5' Weight: 109 lbs 01/31/2018 Blood Pressure 1: 116/68 Code: 8480-6 BMI: 21.1 Code: 80423-4 Heart Rate 1: 89 bpm Height: 5' SpO2: 98% Weight: 108 lbs 01/17/2018 Blood Pressure 1: 134/74 Code: 8480-6 BMI: 21.3 Code: 92545-9 Heart Rate 1: 74 bpm Height: 5' SpO2: 96% Waist Measure (cm): 71 cm Weight: 109 lbs 12/14/2017 Blood Pressure 1: 150/78 Code: 8480-6 BMI: 21.5 Code: 92018-5 Heart Rate 1: 77 bpm Height: 5' SpO2: 98% Temperature: 36.7 (C) / 98.1 (F) Weight: 110 lbs 12/07/2017 Blood Pressure 1: 134/70 Code: 8480-6 Heart Rate 1: 76 bpm Height: SpO2: 98% Temperature: 36.8 (C) / 98.2 (F) Weight: 11/14/2017 Blood Pressure 1: 152/84 Code: 8480-6 BMI: 21.9 Code: 36144-9 Heart Rate 1: 95 bpm Height: 5' SpO2: 93% Weight: 112 lbs 03/27/2017 Blood Pressure 1: 122/70 Code: 8480-6 BMI: 21.3 Code: 16732-6 Heart Rate 1: 75 bpm Height: 5' Weight: 109 lbs 01/23/2017 BMI: 21.5 Code: 88163-4 Height: 5' Weight: 110 lbs 01/19/2017 Blood Pressure 1: 112/60 Code: 8480-6 BMI: 21.5 Code: 14209-9 Heart Rate 1: 54 bpm Height: 5' SpO2: 97% Weight: 110 lbs 11/29/2016 Blood Pressure 1: 126/68 Code: 8480-6 Height: 5' Weight: 11/23/2016 Blood Pressure 1: 130/72 Code: 8480-6 BMI: 21.9 Code: 06362-9 Heart Rate 1: 48 bpm Height: 5' SpO2: 97% Temperature: 36.7 (C) / 98.0 (F) Weight: 112 lbs 11/21/2016 Blood Pressure 1: 134/76 Code: 8480-6 BMI: 21.9 Code: 71488-4 Heart Rate 1: 41 bpm Height: 5' SpO2: 94% Temperature: 36.9 (C) / 98.4 (F) Weight: 112 lbs 11/08/2016 Blood Pressure 1: 126/74 Code: 8480-6 Heart Rate 1: 82 bpm Height: 5' SpO2: 94% Weight: 11/02/2016 Blood Pressure 1: 112/66 Code: 8480-6 Heart Rate 1: 72 bpm Height: 5' SpO2: 95% Weight: 10/27/2016 Blood Pressure 1: 130/64 Code: 8480-6 BMI: 21.7 Code: 76980-6 Heart Rate 1: 81 bpm Height: 5' SpO2: 96% Weight: 111 lbs 08/31/2016 Blood Pressure 1: 132/72 Code: 8480-6 BMI: 22.5 Code: 27473-3 Heart Rate 1: 66 bpm Height: 5' Weight: 115 lbs 07/27/2016 Blood Pressure 1: 166/74 Code: 8480-6 BMI: 23.2 Code: 04391-6 Heart Rate 1: 48 bpm Height: 5' SpO2: 90% Temperature: 36.8 (C) / 98.2 (F) Weight: 119 lbs 06/23/2016 Blood Pressure 1: 128/70 Code: 8480-6 BMI: 22.3 Code: 41571-7 Heart Rate 1: 75 bpm Height: 5' SpO2: 97% Weight: 114 lbs 06/09/2016 BMI: 22.7 Code: 35575-6 Heart Rate 1: 73 bpm Height: 5' SpO2: 97% Weight: 116 lbs 05/25/2016 Blood Pressure 1: 138/62 Code: 8480-6 BMI: 22.8 Code: 97786-2 Heart Rate 1: 76 bpm Height: 5' Weight: 117 lbs 05/17/2016 Blood Pressure 1: 116/70 Code: 8480-6 BMI: 22.8 Code: 13929-5 Heart Rate 1: 74 bpm Height: 5' SpO2: 94% Weight: 117 lbs 03/24/2016 Blood Pressure 1: 154/78 Code: 8480-6 BMI: 22.5 Code: 01251-7 Heart Rate 1: 78 bpm Height: 5' SpO2: 97% Weight: 115 lbs 02/02/2016 Blood Pressure 1: 132/70 Code: 8480-6 BMI: 22.3 Code: 92042-3 Heart Rate 1: 74 bpm Height: 5' SpO2: 94% Weight: 114 lbs 2016 Blood Pressure 1: 120/62 Code: 8480-6 BMI: 22.0 Code: 79890-0 Heart Rate 1: 68 bpm Height: 5' Weight: 112 lbs 8 oz 12/21/2015 Blood Pressure 1: 122/82 Code: 8480-6 BMI: 21.9 Code: 95093-2 Heart Rate 1: 83 bpm Height: 5' SpO2: 93% Temperature: 37.1 (C) / 98.7 (F) Weight: 112 lbs 11/03/2015 Blood Pressure 1: 122/72 Code: 8480-6 BMI: 22.4 Code: 45065-1 Heart Rate 1: 62 bpm Height: 5' Weight: 114 lbs 8 oz 10/19/2015 Blood Pressure 1: 138/62 Code: 8480-6 BMI: 21.1 Code: 45070-5 Heart Rate 1: 79 bpm Height: 5' Weight: 108 lbs 10/13/2015 Blood Pressure 1: 120/62 Code: 8480-6 BMI: 21.0 Code: 58294-7 Heart Rate 1: 76 bpm Height: 5' SpO2: 98% Weight: 108 lbs 09/29/2015 Blood Pressure 1: 130/70 Code: 8480-6 BMI: 20.2 Code: 08977-0 Heart Rate 1: 72 bpm Height: 5' Weight: 104 lbs 09/15/2015 Blood Pressure 1: 128/78 Code: 8480-6 BMI: 19.9 Code: 79741-2 Heart Rate 1: 72 bpm Height: 5' Weight: 102 lbs 8 09/01/2015 Blood Pressure 1: 128/68 Code: 8480-6 BMI: 19.8 Code: 23414-9 Height: 5' Weight: 102 lbs 05/26/2015 Blood Pressure 1: 140/68 Code: 8480-6 BMI: 19.0 Code: 11080-4 Heart Rate 1: 70 bpm Height: 5' Weight: 98 lbs 05/21/2015 Blood Pressure 1: 140/78 Code: 8480-6 BMI: 19.2 Code: 07706-0 Heart Rate 1: 85 bpm Height: 5' SpO2: 95% Weight: 99 lbs 05/07/2015 Blood Pressure 1: 140/82 Code: 8480-6 BMI: 19.0 Code: 67229-3 Heart Rate 1: 76 bpm Height: 5' Weight: 98 lbs 03/23/2015 Blood Pressure 1: 142/60 Code: 8480-6 BMI: 18.6 Code: 58878-0 Heart Rate 1: 52 bpm Height: 5' Weight: 96 lbs 03/09/2015 Blood Pressure 1: 138/74 Code: 8480-6 BMI: 18.8 Code: 95169-4 Heart Rate 1: 60 bpm Height: 5' Weight: 97 lbs 10/30/2014 Blood Pressure 1: 112/82 Code: 8480-6 BMI: 19.0 Code: 36195-9 Heart Rate 1: 64 bpm Height: 5' Weight: 98 lbs 07/11/2014 Blood Pressure 1: 146/70 Code: 8480-6 BMI: 18.8 Code: 02329-4 Heart Rate 1: 68 bpm Height: 5' Weight: 97 lbs 05/20/2014 Blood Pressure 1: 142/76 Code: 8480-6 BMI: 18.6 Code: 30657-0 Heart Rate 1: 78 bpm Height: 5' Weight: 96 lbs 04/29/2014 Blood Pressure 1: 138/62 Code: 8480-6 BMI: 18.3 Code: 30211-9 Heart Rate 1: 80 bpm Height: 5' Weight: 94 lbs 8 oz 03/20/2014 Blood Pressure 1: 142/68 Code: 8480-6 BMI: 18.6 Code: 74088-1 Heart Rate 1: 96 bpm Height: 5' Weight: 96 lbs 03/05/2014 Blood Pressure 1: 122/72 Code: 8480-6 BMI: 18.8 Code: 14283-0 Heart Rate 1: 82 bpm Height: 5' SpO2: 97% Weight: 97 lbs 01/29/2014 Blood Pressure 1: 124/78 Code: 8480-6 BMI: 18.8 Code: 08355-5 Heart Rate 1: 60 bpm Height: 5' Weight: 97 lbs 01/14/2014 Blood Pressure 1: 120/58 Code: 8480-6 BMI: 19.2 Code: 12524-1 Heart Rate 1: 56 bpm Height: 5' Temperature: 36.9 (C) / 98.4 (F) Weight: 99 lbs 12/25/2013 Blood Pressure 1: 118/78 Code: 8480-6 BMI: 19.2 Code: 54634-5 Heart Rate 1: 68 bpm Height: 5' Weight: 99 lbs 11/27/2013 Blood Pressure 1: 102/68 Code: 8480-6 BMI: 19.4 Code: 65793-5 Heart Rate 1: 56 bpm Height: 5' Weight: 100 lbs 09/12/2013 Blood Pressure 1: 142/62 Code: 8480-6 BMI: 19.7 Code: 15404-4 Heart Rate 1: 72 bpm Height: 5'1" Weight: 104 lbs 08/15/2013 Blood Pressure 1: 152/92 Code: 8480-6 Heart Rate 1: 96 bpm Weight: 102 lbs 08/01/2013 Blood Pressure 1: 122/68 Code: 8480-6 BMI: 19.1 Code: 77494-9 Heart Rate 1: 68 bpm Height: 5'1" Weight: 101 lbs 07/01/2013 Blood Pressure 1: 130/72 Code: 8480-6 BMI: 19.5 Code: 60402-6 Heart Rate 1: 80 bpm Height: 5'1" Temperature: 36.1 (C) / 97.0 (F) Weight: 103 lbs 05/29/2013 Blood Pressure 1: 126/72 Code: 8480-6 BMI: 19.3 Code: 18497-9 Heart Rate 1: 80 bpm Height: 5'1" Weight: 102 lbs 05/15/2013 Blood Pressure 1: 156/74 Code: 8480-6 BMI: 19.3 Code: 54584-3 Heart Rate 1: 88 bpm Height: 5'1" Weight: 102 lbs 04/23/2013 Blood Pressure 1: 140/82 Code: 8480-6 BMI: 19.3 Code: 52214-2 Heart Rate 1: 72 bpm Height: 5'1" Weight: 102 lbs 03/21/2013 Blood Pressure 1: 142/74 Code: 8480-6 Heart Rate 1: 92 bpm Weight: 103 lbs 01/16/2013 Blood Pressure 1: 120/56 Code: 8480-6 BMI: 20.0 Code: 74025-0 Heart Rate 1: 72 bpm Height: 5'1" Weight: 106 lbs 12/19/2012 Blood Pressure 1: 118/66 Code: 8480-6 Heart Rate 1: 84 bpm Weight: 12/10/2012 Blood Pressure 1: 132/62 Code: 8480-6 Heart Rate 1: 64 bpm Weight: 103 lbs 10/30/2012 Blood Pressure 1: 122/66 Code: 8480-6 BMI: 19.9 Code: 83486-3 Heart Rate 1: 61 bpm Height: 5'1" [...] 1: 118/72 Code: 8480-6 BMI: 21.0 Code: 78090-0 Heart Rate 1: 66 bpm Height: 5'1" Respiratory Rate: 16 bpm Weight: 111 lbs 2012 Blood Pressure 1: 122/62 Code: 8480-6 Heart Rate 1: 68 bpm Weight: 110 lbs 12/01/2011 Blood Pressure 1: 150/60 Code: 8480-6 BMI: 20.8 Code: 89341-7 Heart Rate 1: 60 bpm Height: 5'1" Respiratory Rate: 16 bpm Weight: 110 lbs 11/23/2011 Blood Pressure 1: 170/68 Code: 8480-6 BMI: 21.1 Code: 26960-5 Heart Rate 1: 64 bpm Height: 5'1" Temperature: 36.3 (C) / 97.3 (F) Weight: 111 lbs 8 oz 10/17/2011 Blood Pressure 1: 148/62 Code: 8480-6 Heart Rate 1: 74 bpm 10/03/2011 Blood Pressure 1: 102/48 Code: 8480-6 BMI: 21.4 Code: 05673-9 Heart Rate 1: 76 bpm Height: 5'1" Respiratory Rate: 16 bpm Weight: 113 lbs 08/08/2011 Blood Pressure 1: 128/60 Code: 8480-6 Heart Rate 1: 80 bpm Respiratory Rate: 16 bpm Weight: 113 lbs 05/09/2011 Blood Pressure 1: 130/62 Code: 8480-6 BMI: 20.7 Code: 46992-2 Heart Rate 1: 64 bpm Height: 5'1" Respiratory Rate: 16 bpm Weight: 109 lbs 8 oz 03/29/2011 Blood Pressure 1: 120/62 Code: 8480-6 BMI: 20.2 Code: 21383-2 Heart Rate 1: 66 bpm Height: 5'1" Respiratory Rate: 12 bpm Weight: 107 lbs 03/15/2011 Blood Pressure 1: 120/64 Code: 8480-6 BMI: 19.8 Code: 88080-1 Heart Rate 1: 76 bpm Height: 5'1" [...] contacts 03/20/2014 sat next to neighbor in [place] who had tonsillitis sore throat Pertinent Findings [...] data Encounters Encounter Performer Location Codes Date [id number] EST. PATIENT, LEVEL III Diagnosis: Raynaud's syndrome without gangrene[ICD10: I73.00] Diagnosis: Pain in left hand[ICD10: M79.642] Diagnosis: Pain in right hand[ICD10: M79.641] Karma Bahena MD, [facility] CPT- 4: 16518 10/09/2018 [id number] EST. PATIENT, LEVEL III Diagnosis: Cough[ICD10: R05] Diagnosis: Acute laryngopharyngitis[ICD10: J06.0] Diagnosis: Other allergic rhinitis[ICD10: J30.89] Diagnosis: Raynaud's syndrome without gangrene[ICD10: I73.00] Katharine Bahena MD, [facility] CPT-4: 08879 09/12/2018 ([id number]) 26038 EST. PATIENT, LEVEL IV Diagnosis: Raynaud's syndrome without gangrene[ICD10: I73.00] Diagnosis: Pain in right toe(s)[ICD10: M79.674] Diagnosis: Chronic atrial fibrillation[ICD10: I48.2] Karma Bahena MD, [facility] CPT-4: 82404 08/14/2018 ([id number]) 94666 EST. PATIENT, LEVEL IV Diagnosis: Chronic atrial fibrillation[ICD10: I48.2] Diagnosis: Sebaceous cyst[ICD10: L72.3] Diagnosis: Raynaud's syndrome without gangrene[ICD10: I73.00] Karma Bahena MD, [facility] CPT-4: 25282 07/26/2018 ([id number]) 28310 EST. PATIENT, LEVEL IV Diagnosis: Essential (primary) hypertension[ICD10: I10] Diagnosis: Atrophy of thyroid (acquired)[ICD10: E03.4] Diagnosis: Gastro-esophageal reflux disease without esophagitis[ICD10: K21.9] Karma Bahena MD, [facility] CPT-4: 60688 06/04/2018 ([id number]) 84074 EST. PATIENT, LEVEL IV Diagnosis: Essential (primary) hypertension[ICD10: I10] Diagnosis: Atrophy of thyroid (acquired)[ICD10: E03.4] Diagnosis: Other fdc (current) drug therapy[ICD10: Z79.899] Karma Bahena MD, [facility] CPT-4: 55022 01/31/2018 ([id number]) 71559 EST. PATIENT, LEVEL IV Diagnosis: Essential (primary) hypertension[ICD10: I10] Diagnosis: Chronic atrial fibrillation[ICD10: I48.2] Diagnosis: Allergic rhinitis due to pollen[ICD10: J30.1] Diagnosis: Cough[ICD10: R05] Karma Bahena MD, [facility] CPT-4: 99122 12/14/2017 25449 EST. PATIENT, LEVEL IV Diagnosis: Other allergic rhinitis[ICD10: J30.89] Katharine Bahena MD, [facility] CPT- 4: 75233 12/07/2017 ([id number]) 45482 EST. PATIENT, LEVEL IV Diagnosis: Essential (primary) hypertension[ICD10: I10] Diagnosis: Chronic atrial fibrillation[ICD10: I48.2] Diagnosis: Atrophy of thyroid (acquired)[ICD10: E03.4] Karma Bahena MD, [facility] CPT-4: 11787 11/14/2017 ([id number]) 97867 EST. PATIENT, LEVEL IV Diagnosis: Essential (primary) hypertension[ICD10: I10] Diagnosis: Localized edema[ICD10: R60.0] Diagnosis: Encounter for immunization[ICD10: Z23] Diagnosis: Age-related osteoporosis without current pathological fracture[ICD10: M81.0] Karma Bahena MD, [facility] CPT-4: 68902 03/27/2017 ([id number]) 59909 EST. PATIENT, LEVEL IV Diagnosis: Essential (primary) hypertension[ICD10: I10] Diagnosis: Chronic atrial fibrillation[ICD10: I48.2] Diagnosis: Dysphonia[ICD10: R49.0] Karma Bahena MD, [facility] CPT-4: 10486 01/19/2017 ([id number]) Miscellaneous no charge Diagnosis: Cough[ICD10: R05] Diagnosis: Acute upper respiratory infection, unspecified[ICD10: J06.9] Laura Bahena MD, [facility] CPT-4: 73234 11/29/2016 13542 EST. PATIENT, LEVEL III Diagnosis: Cough[ICD10: R05] Diagnosis: Acute laryngopharyngitis[ICD10: J06.0] Katharine Bahena MD, [facility] CPT- 4: 92859 11/23/2016 ([id number]) 20146 EST. PATIENT, LEVEL III Diagnosis: Acute laryngopharyngitis[ICD10: J06.0] Laura Bahena MD [facility] CPT-4: 16944 11/21/2016 ([id number]) Miscellaneous no charge Diagnosis: Laceration without foreign body of right forearm, subsequent encounter[ICD10: S51.811D] Karma Bahena MD [facility] CPT-4: 26653 11/17/2016 ([id number]) Miscellaneous no charge Diagnosis: Laceration without foreign body of right forearm, subsequent encounter[ICD10: S51.811D] Karma Bahena MD [facility] CPT-4: 75046 11/14/2016 ([id number]) Miscellaneous no charge Diagnosis: Laceration without foreign body of right forearm, subsequent encounter[ICD10: S51.811D] Karma Bahena MD [facility] CPT-4: 85268 11/11/2016 ([id number]) Miscellaneous no charge Diagnosis: Laceration without foreign body of right forearm, subsequent encounter[ICD10: S51.811D] Karma Bahena MD [facility] CPT-4: 32704 11/10/2016 ([id number]) 49298 EST. PATIENT, LEVEL II Diagnosis: Laceration without foreign body of right forearm, subsequent encounter[ICD10: S51.811D] Karma Bahena MD, [facility] CPT-4: 51878 11/08/2016 ([id number]) 77946 EST. PATIENT, LEVEL IV Diagnosis: Atrophy of thyroid (acquired)[ICD10: E03.4] Diagnosis: Chronic atrial fibrillation[ICD10: I48.2] Diagnosis: Laceration without foreign body of right forearm, subsequent encounter[ICD10: S51.811D] Karma Bahena MD [facility] CPT-4: 69002 11/02/2016 ([id number]) 00106 EST. PATIENT, LEVEL III Diagnosis: Laceration without foreign body of right forearm, initial encounter[ICD10: S51.811A] Laura Bahena MD [facility] CPT-4: 54505 10/27/2016 ([id number]) 57699 EST. PATIENT, LEVEL IV Diagnosis: Essential (primary) hypertension[ICD10: I10] Diagnosis: Chronic atrial fibrillation[ICD10: I48.2] Karma Bahena MD [facility] CPT-4: 99812 08/31/2016 ([id number]) 04901 EST. PATIENT, LEVEL IV Diagnosis: Localized edema[ICD10: R60.0] Diagnosis: Essential (primary) hypertension[ICD10: I10] Diagnosis: Abdominal distension (gaseous)[ICD10: R14.0] Karma Bahena MD, [facility] CPT-4: 14909 07/27/2016 ([id number]) 59599 EST. PATIENT, LEVEL IV Diagnosis: Essential (primary) hypertension[ICD10: I10] Diagnosis: Chronic atrial fibrillation[ICD10: I48.2] Diagnosis: Localized edema[ICD10: R60.0] Karma Bahena MD [facility] CPT-4: 98476 06/23/2016 ([id number]) 24783 EST. PATIENT, LEVEL III Diagnosis: Localized edema[ICD10: R60.0] Karma Bahena MD [facility] CPT-4: 03286 06/09/2016 ([id number]) 02967 EST. PATIENT, LEVEL III Diagnosis: Irritable bowel syndrome without diarrhea[ICD10: K58.9] Diagnosis: Pruritus ani[ICD10: L29.0] Karma Bahena MD, [facility] CPT-4: 13979 05/25/2016 ([id number]) 35981 EST. PATIENT, LEVEL III Diagnosis: Abdominal distension (gaseous)[ICD10: R14.0] Diagnosis: Encounter for screening mammogram for malignant neoplasm of breast[ICD10: Z12.31] Karma Bahena MD [facility] CPT-4: 97965 05/17/2016 ([id number]) 64547 EST. PATIENT, LEVEL IV Diagnosis: Essential (primary) hypertension[ICD10: I10] Diagnosis: First degree hemorrhoids[ICD10: K64.0] Diagnosis: Encounter for immunization[ICD10: Z23] Karma Bahena MD [facility] CPT-4: 07403 03/24/2016 ([id number]) 37745 EST. PATIENT, LEVEL III Diagnosis: Epidermal cyst[ICD10: L72.0] Diagnosis: Essential (primary) hypertension[ICD10: I10] Diagnosis: Chronic atrial fibrillation[ICD10: I48.2] Diagnosis: Other fdc (current) drug therapy[ICD10: Z79.899] Karma Bahena MD [facility] CPT-4: 81469 02/02/2016 ([id number]) 97521 EST. PATIENT, LEVEL III Diagnosis: Acute anal fissure[ICD10: K60.0] Karma Bahena MD [facility] CPT-4: 33299 2016 ([id number]) 72189 EST. PATIENT, LEVEL III Diagnosis: Allergic rhinitis due to pollen[ICD10: J30.1] Diagnosis: Acute upper respiratory infection, unspecified[ICD10: J06.9] Laura Bahena MD [facility] CPT-4: 85903 12/21/2015 ([id number]) 63392 EST. PATIENT, LEVEL III Diagnosis: Essential (primary) hypertension[ICD10: I10] Diagnosis: Chronic atrial fibrillation[ICD10: I48.2] Karma Bahena MD [facility] CPT-4: 92585 11/03/2015 ([id number]) Miscellaneous no charge Diagnosis: Impacted cerumen, right ear[ICD10: H61.21] Katharine Bahena MD [facility] CPT-4: 80338 10/19/2015 19943 EST. PATIENT, LEVEL IV Diagnosis: Impacted cerumen, right ear[ICD10: H61.21] Diagnosis: Other allergic rhinitis[ICD10: J30.89] Katharine Bahena MD [facility] CPT- 4: 45675 10/13/2015 ([id number]) 39016 EST. PATIENT, LEVEL IV Diagnosis: Essential (primary) hypertension[ICD10: I10] Diagnosis: Chronic atrial fibrillation[ICD10: I48.2] Diagnosis: Urge incontinence[ICD10: N39.41] Diagnosis: Age-related osteoporosis without current pathological fracture[ICD10: M81.0] Karma Bahena MD, [facility] CPT-4: 57415 09/29/2015 ([id number]) 34493 EST. PATIENT, LEVEL IV Diagnosis: Essential (primary) hypertension[ICD10: I10] Diagnosis: Chronic atrial fibrillation[ICD10: I48.2] Diagnosis: Irritable bowel syndrome without diarrhea[ICD10: K58.9] Diagnosis: Unspecified hemorrhoids[ICD10: K64.9] Karma Bahena MD, [facility] CPT-4: 78196 09/15/2015 ([id number]) 06722 EST. 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 PATIENT, LEVEL III Diagnosis: Hematuria, unspecified[ICD10: R31.9] Diagnosis: Other urethritis[ICD10: N34.2] Diagnosis: Other specified noninflammatory disorders of vagina[ICD10: N89.8] Karma Bahena MD, [facility] CPT-4: 49765 05/26/2015 75316 EST. PATIENT, LEVEL IV Diagnosis: Gout, unspecified[ICD10: M10.9] Karma Bahena MD, [facility] CPT-4: 53332 05/21/2015 ([id number]) 76061 EST. PATIENT, LEVEL IV Diagnosis: Chronic atrial fibrillation[ICD10: I48.2] Diagnosis: Irritable bowel syndrome without diarrhea[ICD10: K58.9] Diagnosis: Cystocele, unspecified[ICD10: N81.10] Diagnosis: Urge incontinence[ICD10: N39.41] Diagnosis: Fecal smearing[ICD10: R15.1] Diagnosis: Hypothyroidism, unspecified[ICD10: E03.9] Karma Bahena MD [facility] CPT-4: 43029 05/07/2015 ([id number]) 57352 EST. PATIENT, LEVEL III Diagnosis: Atrial fibrillation[ICD9: 427.31] Diagnosis: Bloating[ICD9: 787.3] Karma Bahena MD [facility] CPT-4: 69524 03/23/2015 ([id number]) 59725 EST. PATIENT, LEVEL IV Diagnosis: Abdominal pain[ICD9: 789.00] Diagnosis: Atrial fibrillation[ICD9: 427.31] Diagnosis: ENCNTR LONG-ANTICOAG USE[ICD9: V58.61] Karma Bahena MD [facility] CPT-4: 92582 03/09/2015 ([id number]) 71421 EST. PATIENT, LEVEL IV Diagnosis: HEMATURIA NOS[ICD9: 599.70] Diagnosis: Atrial fibrillation[ICD9: 427.31] Diagnosis: HYPOTHYROIDISM[ICD9: 244.9] Karma Bahena MD, [facility] CPT-4: 85794 10/30/2014 ([id number]) 69659 EST. PATIENT, LEVEL IV Diagnosis: Atrial fibrillation[ICD9: 427.31] Diagnosis: ALLERGIC RHINITIS[ICD9: 477.9] Diagnosis: Need for pneumococcal vaccine[ICD9: V03.82] Diagnosis: Osteoarthritis[ICD9: 715.90] Diagnosis: Osteoporosis[ICD9: 733.00] Karma Bahena MD [facility] CPT-4: 03651 07/11/2014 ([id number]) 84104 EST. PATIENT, LEVEL III Diagnosis: Urge incontinence[ICD9: 788.31] Diagnosis: Dysuria[ICD9: 788.1] Karma Bahena MD [facility] CPT-4: 03961 05/20/2014 ([id number]) 83084 EST. PATIENT, LEVEL IV Diagnosis: Atrial fibrillation[ICD9: 427.31] Diagnosis: Hematuria[ICD9: 599.70] Diagnosis: Dysuria[ICD9: 788.1] Diagnosis: ESSENTIAL HYPERTENSION[ICD9: 401.9] Karma Bahena MD, [facility] CPT- 4: 13486 04/29/2014 ([id number]) 18755 EST. PATIENT, LEVEL IV Diagnosis: ESSENTIAL HYPERTENSION[ICD9: 401.9] Diagnosis: ALLERGIC RHINITIS[ICD9: 477.9] Karma Bahena MD [facility] CPT-4: 93850 03/20/2014 ([id number]) 44880 EST. PATIENT, LEVEL IV Diagnosis: ESSENTIAL HYPERTENSION[ICD9: 401.9] Diagnosis: ATRIAL FIBRILLATION[ICD9: 427.31] Diagnosis: Irritable bowel[ICD9: 564.1] Karma Bahena MD [facility] CPT-4: 28502 03/05/2014 ([id number]) 09389 EST. PATIENT, LEVEL IV Diagnosis: Esophageal reflux[ICD9: 530.81] Diagnosis: DIARRHEA[ICD9: 787.91] Diagnosis: ABDOM PAIN NOS SITE[ICD9: 789.00] Karma Bahena MD [facility] CPT- 4: 32440 01/29/2014 ([id number]) 56940 EST. PATIENT, LEVEL III Diagnosis: Irritable bowel[ICD9: 564.1] Diagnosis: DIARRHEA[ICD9: 787.91] Laura Bahnea MD, [facility] CPT-4: 36814 01/14/2014 ([id number]) 10465 EST. PATIENT, LEVEL IV Diagnosis: ESSENTIAL HYPERTENSION[ICD9: 401.9] Diagnosis: ATRIAL FIBRILLATION[ICD9: 427.31] Diagnosis: URGE INCONTINENCE[ICD9: 788.31] Diagnosis: MALAISE AND FATIGUE[ICD9: 780.79] Diagnosis: Dyspnea[ICD9: 786.09] Karma Bahena MD, [facility] CPT-4: 13092 12/25/2013 ([id number]) 71618 EST. PATIENT, LEVEL IV Diagnosis: ESSENTIAL HYPERTENSION[SNOMED: 71499503] Diagnosis: ATRIAL FIBRILLATION[ICD9: 427.31] Diagnosis: Abdominal pain[ICD9: 789.00] Diagnosis: ESOPHAGEAL REFLUX[ICD9: 530.81] Karma Bahena MD [facility] CPT-4: 28478 11/27/2013 ([id number]) 49687 EST. PATIENT, LEVEL IV Diagnosis: ESSENTIAL HYPERTENSION[SNOMED: 40898384] Diagnosis: ATRIAL FIBRILLATION[ICD9: 427.31] Diagnosis: Chronic osteoarthritis[ICD9: 715.90] Karma Bahena MD [facility] CPT- 4: 23916 09/12/2013 ([id number]) 40357 EST. PATIENT, LEVEL III Diagnosis: ESSENTIAL HYPERTENSION[SNOMED: 97827355] Diagnosis: Bruising[ICD9: 924.9] Diagnosis: ENCNTR LONG-RX USE NEC[ICD9: V58.69] Karma Bahena MD [facility] CPT- 4: 10571 08/15/2013 ([id number]) 87172 EST. PATIENT, LEVEL IV Diagnosis: ESSENTIAL HYPERTENSION[SNOMED: 68888120] Diagnosis: Hematuria[ICD9: 599.70] Diagnosis: Dysuria[ICD9: 788.1] Karma Bahena MD [facility] CPT-4: 57284 08/01/2013 ([id number]) 93421 EST. PATIENT, LEVEL III Diagnosis: UTI[ICD9: 599.0] Diagnosis: Hematuria[ICD9: 599.70] Laura Bahena MD [facility] CPT-4: 32472 07/01/2013 ([id number]) 13057 EST. PATIENT, LEVEL III Diagnosis: ATRIAL FIBRILLATION[ICD9: 427.31] Diagnosis: ESSENTIAL HYPERTENSION[SNOMED: 99295480] Karma Bahena MD [facility] CPT-4: 53221 05/29/2013 ([id number]) 41444 EST. PATIENT, LEVEL IV Diagnosis: Atrial fibrillation[ICD9: 427.31] Diagnosis: Encounter for monitoring digoxin therapy[ICD9: V58.83] Diagnosis: ESSENTIAL HYPERTENSION[SNOMED: 85496474] Karma Bahena MD [facility] CPT-4: 02527 05/15/2013 ([id number]) 93011 EST. PATIENT, LEVEL IV Diagnosis: ESSENTIAL HYPERTENSION[SNOMED: 77729339] Diagnosis: ATRIAL FIBRILLATION[ICD9: 427.31] Diagnosis: PALPITATIONS[ICD9: 785.1] Diagnosis: Dizziness and giddiness[ICD9: 780.4] Karma Bahena MD [facility] CPT- 4: 98642 04/23/2013 ([id number]) 15383 EST. PATIENT, LEVEL III Diagnosis: OTHER CONSTIPATION[ICD9: 564.09] Diagnosis: ABDOM PAIN NOS SITE[ICD9: 789.00] Laura Bahena MD, [facility] CPT- 4: 75116 03/21/2013 ([id number]) 27397 EST. PATIENT, LEVEL IV Diagnosis: ESSENTIAL HYPERTENSION[SNOMED: 18568999] Diagnosis: Atrial fibrillation[ICD9: 427.31] Karma Bahena MD, [facility] CPT- 4: 28860 01/16/2013 ([id number]) Miscellaneous no charge Diagnosis: CELLULITIS OF HAND[ICD9: 682.4] Karma Bahena MD, [facility] CPT-4: 10122 12/19/2012 ([id number]) Miscellaneous no charge Diagnosis: ENCOUNTER FOR THERAPEUTIC DRUG MONITORING[ICD9: V58.83] Diagnosis: CELLULITIS OF HAND[ICD9: 682.4] Karma Bahena MD, [facility] CPT-4: 10402 12/14/2012 Miscellaneous no charge Diagnosis: CELLULITIS OF HAND[ICD9: 682.4] Karma Bahena MD, [facility] CPT-4: 85269 12/12/2012 05633 EST. PATIENT, LEVEL II Diagnosis: CELLULITIS OF HAND[ICD9: 682.4] Diagnosis: ENCNTR LONG-RX USE NEC[ICD9: V58.69] Diagnosis: LONG-TERM USE ANTICOAGUL[ICD9: V58.61] Karma Bahena MD, [facility] CPT-4: 53006 12/11/2012 ([id number]) 64471 EST. PATIENT, LEVEL III Diagnosis: CELLULITIS OF HAND[ICD9: 682.4] Karma Bahena MD, [facility] CPT-4: 62498 12/10/2012 ([id number]) 09828 EST. PATIENT, LEVEL IV Diagnosis: Elevated digoxin level[ICD9: 796.0] Diagnosis: ATRIAL FIBRILLATION[ICD9: 427.31] Diagnosis: Inflammatory arthritis[ICD9: 714.9] Karma Bahena MD, [facility] CPT- 4: 98435 10/30/2012 ([id number]) 27008 EST. PATIENT, LEVEL IV Diagnosis: Atrial fibrillation[ICD9: 427.31] Diagnosis: Anticoagulant long-term use[ICD9: V58.61] Diagnosis: ESSENTIAL HYPERTENSION[SNOMED: 82481371] Karma Bahena MD [facility] CPT-4: 63170 08/08/2012 ([id number]) 16993 EST. PATIENT, LEVEL IV Diagnosis: ABDOM PAIN NOS SITE[ICD9: 789.00] Diagnosis: Constipation - functional[ICD9: 564.09] Diagnosis: EDEMA[ICD9: 782.3] Diagnosis: ATRIAL FIBRILLATION[ICD9: 427.31] PARVEEN Freitas MD CPT- 4: 59952 07/11/2012 ([id number]) 61797 EST. PATIENT, LEVEL III Diagnosis: Cystocele[ICD9: 618.01] Diagnosis: Rectocele[ICD9: 618.04] PARVEEN Freitas MD CPT-4: 90217 05/08/2012 ([id number]) 65840 EST. 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 PATIENT, LEVEL IV Diagnosis: ATRIAL FIBRILLATION[ICD9: 427.31] Diagnosis: URGE INCONTINENCE[ICD9: 788.31] Diagnosis: MALAISE AND FATIGUE[ICD9: 780.79] Diagnosis: Dyspnea[ICD9: 786.09] [facility] CPT-4: 10538 02/20/2012 28107 EST. PATIENT, LEVEL IV Diagnosis: Hematuria[ICD9: 599.70] Diagnosis: Vaginal yeast infection[ICD9: 112.1] Diagnosis: ATRIAL FIBRILLATION[ICD9: 427.31] Laura Bahena MD [facility] CPT- 4: 16681 02/13/2012 ([id number]) 69025 EST. PATIENT, LEVEL IV Diagnosis: Atrial fibrillation[ICD9: 427.31] Diagnosis: Anticoagulation goal of INR 2 to 3[ICD9: V58.83] Diagnosis: Urinary incontinence, urge[ICD9: 788.31] Diagnosis: ESSENTIAL HYPERTENSION[SNOMED: 16869245] Karma Bahena MD, [facility] CPT-4: 43319 02/01/2012 ([id number]) 20758 EST. PATIENT, LEVEL IV Diagnosis: Atrial fibrillation[ICD9: 427.31] Diagnosis: Anticoagulant long-term use[ICD9: V58.61] Diagnosis: ESSENTIAL HYPERTENSION[SNOMED: 24587358] Karma Bahena MD [facility] CPT-4: 81410 2012 47800 EST. PATIENT, LEVEL IV Diagnosis: UTI[ICD9: 599.0] Diagnosis: ESSENTIAL HYPERTENSION[SNOMED: 72186412] Diagnosis: MALAISE AND FATIGUE[ICD9: 780.79] Diagnosis: Esophageal reflux[ICD9: 530.81] Karma Bahena MD [facility] CPT-4: 32998 12/01/2011 ([id number]) 14461 EST. PATIENT, LEVEL IV Diagnosis: UTI (urinary tract infection)[ICD9: 599.0] Diagnosis: ESSENTIAL HYPERTENSION[SNOMED: 61305855] Diagnosis: URGE INCONTINENCE[ICD9: 788.31] Karma Bahena MD [facility] CPT-4: 56635 11/23/2011 ([id number]) 56440 EST. PATIENT, LEVEL IV Diagnosis: ESSENTIAL HYPERTENSION[SNOMED: 43622323] Diagnosis: IMPACTED CERUMEN[ICD9: 380.4] Diagnosis: MALAISE AND FATIGUE[ICD9: 780.79] Diagnosis: EDEMA[ICD9: 782.3] Karma Bahena MD [facility] CPT-4: 89416 10/03/2011 [id number] EST. PATIENT, LEVEL IV Diagnosis: ESSENTIAL HYPERTENSION[SNOMED: 43346762] Diagnosis: Generalized osteoarthritis[ICD9: 715.09] Diagnosis: OSTEOPOROSIS[ICD9: 733.00] Karma Bahena MD, [facility] CPT-4: 23296 08/08/2011 14013 EST. PATIENT, LEVEL IV Diagnosis: Muscle cramp[ICD9: 729.82] Diagnosis: Torticollis[ICD9: 723.5] Diagnosis: Rash[ICD9: 782.1] Karma Bahena MD, [facility] CPT-4: 45615 05/09/2011 12954 EST. PATIENT, LEVEL IV Diagnosis: Leg cramps, sleep related[ICD9: 327.52] Diagnosis: Underweight[ICD9: 783.22] Karma Bahena MD, [facility] CPT-4: 80930 03/29/2011 [id number] EST. PATIENT, LEVEL IV Diagnosis: UTI[ICD9: 599.0] Diagnosis: Urge incontinence[ICD9: 788.31] Diagnosis: Loss of weight[ICD9: 783.21] Diagnosis: Palpitations[ICD9: 785.1] Diagnosis: Peripheral neuropathy, idiopathic[ICD9: 356.9] Karma Bahena MD, [facility] CPT-4: 36468 03/15/2011 Plan of Care Planned Activity Notes Codes Status Date Visit Plan: Hand pain with arthritis - Raynaud syndrome - discussed with pt - RX for Voltaren gel sent to the pharmacy. continue with amlodipine. 10/09/2018 Appointment: Karma Bahena WPtel: [address] [place] [id number] (15 min) Moderate 10/09/2018 Patient Education: Patient Medication Summary Completed 10/09/2018 Appointment: Karma Bahena WPtel: [facility]5 [facility] (15 min) Moderate 10/01/2018 Visit Plan: URI [...] or concerns. 09/12/2018 Appointment: Katharine Dai WPtel: [address] [place], [place] [address] (15 min) Moderate 09/12/2018 Patient Education: Patient Medication Summary Completed 09/12/2018 Appointment: Karma Bahena WPtel: [address] [place], [place] [address] (15 min) Moderate 08/16/2018 Visit Plan: I [...] removed. 08/14/2018 Appointment: Karma Bahena WPtel: [facility]0 [facility] (15 min) Moderate 08/14/2018 Patient Education: Patient [...] removed. 07/26/2018 Appointment: Karma Bahena WPtel: [phone] [facility] (15 min) Moderate 07/26/2018 Patient Education: Patient [...] not improving. 06/04/2018 Appointment: Karma Bahena WPtel: 1014 [facility] (15 min) Moderate 06/04/2018 Patient Education: Patient Medication Summary Completed 06/04/2018 Appointment: Karma Bahena WPtel: 1017 [facility] [place] (15 min) Moderate 03/14/2018 Visit Plan: Hypertension [...] ont based on previous levels of control. 01/31/2018 Appointment: Suhas Katharine WPtel: [facility]5 [facility] [facility] - Annual Wellness Visit [...] spray. 12/14/2017 Appointment: Karma Bahena WPtel: 1015 [facility] (15 min) Moderate 12/14/2017 Patient [...] allergy spray. 12/07/2017 Appointment: Katharine Dai WPtel: [facility]0 [address] (15 min) Moderate 12/07/2017 Patient Education: Patient [...] q 3 months or q 6 m [facility] based on previous levels of control. 11/14/2017 Appointment: Karma Bahena WPtel: [facility]6 [facility] (15 min) Moderate 11/14/2017 Patient Education: Patient [...] today. 03/27/2017 Appointment: Karma Bahena WPtel: 1015 [facility] (15 min) Moderate 03/27/2017 Patient Education: [...] surrogate. 01/23/2017 Appointment: Katharine Dai WPtel: 1015 [facility] [facility] - Annual Wellness Visit [...] becoming uncontrolled. 01/19/2017 Appointment: Karma Bahena WPtel: [facility]9 [facility]6[address] (15 min) Moderate 01/19/2017 Patient Education: Patient Medication Summary Completed 01/19/2017 Care Plan: Referral Order SNOMED-CT : [id number] Pending 01/19/2017 Appointment: Karma Bahena WPtel: [facility]8 [facility]6[address] (15 min) Moderate 01/04/2017 Appointment: Karma Bahena WPtel: 1015 [facility]66[facility] (15 min) Moderate 12/28/2016 Visit Plan: DSC-tffxg-xjh zpack-call if symptoms do not resolve or if any worse. Patient verbalized understanding of plan. 11/29/2016 Appointment: Laura Colin WPtel: [phone] [place] (15 min) Moderate 11/29/2016 [...] pharmacy. 11/23/2016 Appointment: Katharine Dai WPtel: 1015 [facility] (15 min) Moderate 11/23/2016 Patient Education: Patient Medication Summary Completed 11/23/2016 Visit Plan: Pharyngitis-Discussed natural and expected course of this diagnosis and need to alert me if symptoms do not follow expected course, or if any worse. Recommended salt water gargles as needed for pain. Ty lenol/motrin as needed for fever/discomfort. 11/21/2016 Appointment: Laura Colin WPtel: 1014 [phone] [place] (15 min) Moderate 11/21/2016 Patient Education: [...] monitor symptoms. 11/08/2016 Appointment: Karma Bahena WPtel: [phone] [facility] [place] (10 min) Simple 11/08/2016 Patient Education: [...] is becoming uncontrolled. Laceration of arm - jj ling - continue with supportive care, bactroban, etc. 11/02/2016 Appointment: Karma Bahena WPtel: [phone] [facility] [place] (15 min) Moderate 11/02/2016 Appointment: Nurse Visit 11/02/2016 Patient Education: Patient Medication Summary Completed 11/02/2016 Appointment: Nurse Visit 10/31/2016 Visit Plan: Laceration-right forearm- Pt was instructed to keep the wound clean, cleanse with sterile saline, use bactroban ointment, call if redness, pustular drainage, or any other acute concerns. Follow up Monday for dressing changes. 10/27/2016 Appointment: Laura Colin WPtel: 1015 [facility] (30 min) Complex 10/27/2016 Patient Education: [...] in symptoms. 08/31/2016 Appointment: Karma Bahena WPtel: 1014 [facility] (15 min) Moderate 08/31/2016 Patient Education: Patient [...] your swelling. 07/27/2016 Appointment: Karma Bahena WPtel: [phone] [facility] (15 min) Moderate 07/27/2016 Patient Education: [...] lasix 06/23/2016 Appointment: Karma Bahena WPtel: [facility]4 [facility]6[address] (15 min) Moderate 06/23/2016 Patient Education: Patient Medication Summary Completed 06/23/2016 Patient Education: Hypertension Completed 06/23/2016 Visit Plan: Edema - with Dyspnea - RX for laxis and compression socks - pt to call if not improving. 06/09/2016 Appointment: Karma Bahena WPtel: [facility]1 [facility]6[address] (15 min) Moderate 06/09/2016 Patient Education: Patient Medication Summary Completed 06/09/2016 Visit Plan: Abdominal pain and rectal itching - recommended pt to use betamethasone on vaginal/rectal region, monitor symptoms call if not improving. 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 : 68452-5 Pending 05/20/2016 Visit Plan: Abdominal distension - use simethicone four times daily - after meals - if it does not help - in the next two weeks - call the office and we will do a ct scan of the abdomen and pelvis 05/17/2016 Appointment: Karma Bahena WPtel: [facility]7 [facility] (15 min) Moderate 05/17/2016 Patient Education: Patient [...] ointment 03/24/2016 Appointment: Karma Bahena WPtel: 1015 [facility]6676[facility] (30 min) Complex 03/24/2016 Patient Education: Patient [...] spray. 12/21/2015 Appointment: Laura Colin WPtel: 1015 [phone] (30 min) Complex 12/21/2015 [...] uncontrolled. 11/03/2015 Appointment: Karma Bahena WPtel: [phone] [facility] (15 min) Moderate 11/03/2015 Patient Education: [...] had left kidney and ureter removed in [place]-doing well 09/01/2015 Appointment: (30 min) Complex 09/01/2015 Patient Education: Patient Medication Summary Completed 09/01/2015 Patient Education: Hypertension Completed 09/01/2015 Appointment: Karma Bahena WPtel: [address] [place], [place] [address] (15 min) Moderate 07/13/2015 Visit Plan: Hematuria/Urethritis [...] 05/13/2015 Care Plan: Referral Order SNOMED-CT : [id number] Ordered 05/08/2015 Visit Plan: Atrial Fibrillation - [...] Dr. Collins. 05/07/2015 Appointment: Karma Bahena WPtel: [facility]5 [facility] (15 min) Moderate 05/07/2015 Patient Education: [...] becoming uncontrolled. 10/30/2014 Appointment: Karma Bahena WPtel: [address] [place] [address] Follow up 10/30/2014 Patient Education: Patient Medication Summary Completed 10/30/2014 Appointment: Karma Bahena WPtel: [address] [place], [place] [address] Follow up 07/22/2014 Visit Plan: Atrial Fibrillation [...] hospital. 07/11/2014 Appointment: Karma Bahena WPtel: [facility]2 [facility] Sick 07/11/2014 Patient Education: Patient Medication Summary Completed 07/11/2014 Appointment: Karma Bahena WPtel: [facility]0 [facility] [place] Follow up 07/07/2014 Visit Plan: Urinary incontinence and recurrent UTI's - doctor will refer to Dr. Joel Collins - for nonsurgical intervention for potential electrical stimulation/training of pelvic floor muscles - for strengthening - can start on the treatment when you get back from [place] - will also ask him about doing a cystoscopy to look into bladder to see if there is any bladder irritation. keep using the Premarin - use about 25Cent size of cream onto finger to apply to urethra and do this three times weekly. 05/20/2014 Appointment: Karma Bahena WPtel: [address] [place], [place] [phone] Follow up 05/20/2014 Patient Education: Patient Medication Summary Completed 05/20/2014 Appointment: Karma Bahena WPtel: [address] [place], [place] [phone] [place] Lab Draw 05/14/2014 Patient Education: Patient [...] recommended vesicare. 04/29/2014 Appointment: Karma Bahena WPtel: [facility]3 [facility] Follow up 04/29/2014 Patient Education: Patient Medication [...] allergy spray. 03/20/2014 Appointment: Karma Bahena WPtel: [address] [place], [place] [phone] [facility] 03/20/2014 Patient Education: Patient Medication Summary [...] becoming uncontrolled. 03/05/2014 Appointment: Karma Bahena WPtel: [facility]1 [facility] Follow up 03/05/2014 Patient Education: Patient [...] report. 01/29/2014 Appointment: Karma Bahena WPtel: [phone] [facility] Follow up 01/29/2014 Patient Education: Patient [...] fatigue. 12/25/2013 Appointment: Karma Bahena WPtel: 1015 [facility] [place] Follow up 12/25/2013 Patient Education: Patient [...] daily. 11/27/2013 Appointment: Karma Bahena WPtel: 1015 [facility] [place] Follow up 11/27/2013 Patient Education: Patient Medication [...] heart rate. Osteoarthritis - send pt to [facility] physical therapy for gereral osteoarhtritis program for strengthening and pain reduction. Hypertension - well controlled - continue with current medications, continue with no added salt diet. Pt has been encouraged to exercise daily. The pt has been advised to call the office if there are any acute concerns about change in blood pressure readings at home. 09/12/2013 Appointment: Karma Bahena WPtel: [phone] [facility] [place] Follow up 09/12/2013 Patient Education: Patient Medication Summary Completed 09/12/2013 Patient Education: Hypertension Completed 09/12/2013 Appointment: Karma Bahena WPtel: [phone] [facility] [place] Follow up 08/21/2013 Visit Plan: Hypertension [...] PT/INR 08/15/2013 Appointment: Karma Bahena WPtel: [facility]5 [facility] [place] Follow up 08/15/2013 Patient Education: [...] urethra. 08/01/2013 Appointment: Karma Bahena WPtel: [facility]5 [facility] [place] Follow up 08/01/2013 Patient Education: Patient Medication Summary Completed 08/01/2013 Patient Education: Hypertension Completed 08/01/2013 Appointment: Laura Colin WPtel: [facility]5 [facility] [place] Lab Draw 07/29/2013 Patient Education: Patient Medication Summary Completed 07/29/2013 Visit Plan: Osteoporosis-prolia on june 25-patient to let Dr Hansen know 07/01/2013 Appointment: Laura Colin WPtel: [facility]5 [facility] [place] Follow up 07/01/2013 Appointment: Karma Bahena WPtel: [phone] [facility] Follow up 07/01/2013 Patient Education: Patient Medication Summary Completed 07/01/2013 Appointment: Karma Bahena WPtel: [facility]6 [facility] Follow up 06/25/2013 Appointment: Karma Bahena WPtel: [address] [place], [place] [phone] Lab Draw 06/20/2013 Patient Education: Patient Medication Summary Completed 06/20/2013 Appointment: Karma Bahena WPtel: [address] [place] [address] Lab Draw 06/19/2013 Visit Plan: Atrial Fibrillation [...] at home. 05/29/2013 Appointment: Karma Bahena WPtel: [address] [place], [place] [phone] Follow up 05/29/2013 Patient Education: Patient Medication [...] at home. 05/15/2013 Appointment: Karma Bahena WPtel: [address] [place] [address] Other 05/15/2013 Patient Education: Patient Medication Summary [...] today. 04/23/2013 Appointment: Karma Bahena WPtel: [facility]3 [facility] [place] Other 04/23/2013 Patient Education: Patient [...] regimen. 03/21/2013 Appointment: Laura Colin WPtel: [facility]5 [phone] Follow up 03/21/2013 Patient [...] becoming uncontrolled. 01/16/2013 Appointment: Karma Bahena WPtel: [phone] [facility] [place] Follow up 01/16/2013 Patient Education: Patient Medication Summary Completed 01/16/2013 Patient Education: Hypertension Completed 01/16/2013 Visit Plan: Wound Instructions - Pt was instruced to keep the wound clean, wash with antibacterial soap, use triple antibiotic ointment, call if redness, pustular drainage, or any other acute conerns. 12/19/2012 Appointment: Karma Bahena WPtel: [facility]5 [facility] Other 12/19/2012 Patient Education: Patient Medication Summary Completed 12/19/2012 Patient Education: Patient Medication Summary Completed 12/17/2012 Visit Plan: Cellulitis - improved- monitor symptoms - need to check handon Monday morning. 12/14/2012 Appointment: Karma Bahena WPtel: [address] [place], [place] [phone] Follow up 12/14/2012 Patient Education: Patient Medication Summary Completed 12/14/2012 Visit Plan: Cellulitis - improved- monitor symptoms - need to check handon Monday morning. 12/12/2012 Appointment: Karma Bahena WPtel: [address] [place], [place] [phone] Work-in 12/12/2012 Patient Education: Patient Medication Summary [...] warmth, discharge. 12/10/2012 Appointment: Karma Bahena WPtel: [address] [place], [place] [phone] Other 12/10/2012 Patient Education: Patient Medication Summary [...] uncontrolled. 10/30/2012 Appointment: Karma Bahena WPtel: [phone] [facility] Follow up 10/30/2012 Patient Education: Patient Medication Summary Completed 10/30/2012 Appointment: Laura Colin WPtel: [facility]5 [phone] Lab Draw 09/13/2012 Patient [...] and 3.5. 08/08/2012 Appointment: Karma Bahena WPtel: [facility]5 [facility] Other 08/08/2012 Patient Education: Patient Medication Summary [...] this regimen. 07/11/2012 Appointment: Karma Bahena WPtel: [facility] swelling, leg edema Other 07/11/2012 Patient Education: [...] medication vaginally. 05/08/2012 Appointment: Karma Bahena WPtel: [facility]4 [facility] [place] Follow up 05/08/2012 Patient Education: Patient [...] during hospitalization. 04/18/2012 Appointment: Karma Bahena WPtel: [address] [place], [place] [phone] [place] Follow up 04/18/2012 Patient Education: Patient Medication Summary Completed 04/18/2012 Patient Education: High Blood Pressure: Essential Hypertension Completed 04/18/2012 Appointment: Karma Bahena WPtel: [address] [place], [place] [phone] [place] Follow up 04/09/2012 Appointment: Karma Bahena WPtel: [phone] [facility] [place] Lab Draw 04/04/2012 Appointment: Laura Colin WPtel: 1015 [facility] [place] Lab Draw 03/19/2012 Visit Plan: [...] for further work up-[facility]-Will keep patient NPO for now and plan to check CT scan as well as labs and start patient on intravenous fluids. Patient verbalized understanding of plan. 03/13/2012 Patient Education: Patient Medication Summary Completed 03/13/2012 Patient Education: High Blood Pressure: Essential Hypertension Completed 03/13/2012 Appointment: Karma Bahena WPtel: [phone] [facility] [place] Lab Draw 03/08/2012 Patient Education: [...] change in blood pressure readings at home. Simae and romina- recommended cardiac rehab. 02/20/2012 Appointment: Karma Bahena WPtel: [facility]5 [facility] Other 02/20/2012 Patient Education: Patient Medication Summary [...] uncontrolled. 02/13/2012 Appointment: Laura Colin WPtel: [facility]0 [phone] Other 02/13/2012 Patient Education: Patient Medication Summary Completed 02/13/2012 Appointment: Karma Bahena WPtel: [address] [place], [place] [phone] Lab Draw 02/07/2012 Visit Plan: Atrial Fibrillation [...] medication. 02/01/2012 Appointment: Karma Bahena WPtel: [facility] Other 02/01/2012 Patient Education: Patient Medication Summary Completed 02/01/2012 Patient Education: High Blood Pressure: Essential Hypertension Completed 02/01/2012 Appointment: Karma Bahena WPtel: [facility]4 [facility] Lab Draw 01/17/2012 Visit Plan: Atrial Fibrillation [...] home. 2012 Appointment: Karma Bahena WPtel: [phone] [facility] Other 2012 Patient Education: Patient Medication Summary Completed 2012 Patient Education: High Blood Pressure: Essential Hypertension Completed 2012 Appointment: Karma Bahena WPtel: [facility]5 [facility] Follow up 12/20/2011 Visit Plan: Dicyclomine [...] go to the emergency room. 12/01/2011 Appointment: JosefMigdaliay WPtel: 1014 [facility] [place] Other 12/01/2011 Patient Education: Patient [...] resolves. 11/23/2011 Appointment: Laura Colin WPtel: 1015 [facility] [place] 11/23/2011 Patient Education: Patient Medication Summary Completed 11/23/2011 Patient Education: High Blood Pressure: Essential Hypertension Completed 11/23/2011 Visit Plan: Cerumen Impaction - The impacted cerumen was removed with the use of either ear currette alone or in combination with ear curette and water pick. The patient tolerated the procedure without incident and had improvement in hearing 10/17/2011 Appointment: Laura Colin WPtel: [facility]3 [facility] [place] [address] Other 10/17/2011 Patient Education: Patient Medication Summary [...] irrigation. 10/03/2011 Appointment: Karma Bahena WPtel: [facility]1 [place] [address] [place] Other 10/03/2011 Patient Education: Patient Medication [...] is evidence. 08/08/2011 Appointment: Karma Bahena WPtel: [phone] [facility] Other 08/08/2011 Patient Education: Patient Medication Summary Completed 08/08/2011 Patient Education: High Blood Pressure: Essential Hypertension Completed 08/08/2011 Visit Plan: Muscle cramps - the cramps are a little better, continue with the Diltiazem and it is okay to use the over the counter supplement with quinine - but use it sparingly. For the rash, use the prescripti on the drafter electrical prescribed for the itching , call if the rash is not improved. Torticollis - continue with physical therapy, call if the neck muscles do not continue to show improvement. 05/09/2011 Appointment: Karma Bahena WPtel: [address] [place] [address] Other 05/09/2011 Patient Education: Patient Medication Summary [...] water aerobics. 03/29/2011 Appointment: Karma Bahena WPtel: [address] [place] [address] [place] Other 03/29/2011 Patient Education: Patient Medication Summary Completed 03/29/2011 Appointment: Karma Bahena WPtel: [address] [place], [place] [address] Other 03/17/2011 Visit Plan: UTI - UA negative. Urge incontinence- restart on the vesicare- at 5 mg. Continue to avoid caffinated foods/fluids. Peripheral Neuropathy - per tobacco feeder catcher report - Continue with the metanex. Loss of weight - WEIGHT CHECK IN 2 WKS. Palpitations- likely stress induced. If the symptoms worsen, call the office. 03/15/2011 Appointment: Karma Bahena WPtel: [address] [place], [place] [address] [place] Follow up 03/15/2011 Patient Education: Patient Medication Summary Completed 03/15/2011 Visit Plan: Rocephin 500mg IM 03/04/2011 Patient Education: Patient Medication Summary Completed 03/04/2011 Referral: Dr Jeff Referral Appointment Requested Referral: Corby Collins Referral Appointment Requested Instructions Comment . Cyst - epidermal cyst - pt [...] diet and continue with water aerobics. . Allergies - chronic - recommended pt [...] heart rate. Osteoarthritis - send pt to [facility] physical therapy for gereral osteoarhtritis program for [...] For the rash, use the prescription the drafter electrical prescribed for the itching , call if [...] in blood pressure readings at home. . WNM-jrwgu-uwp zpack-call if symptoms do not resolve or [...] avoid caffinated foods/fluids. Peripheral Neuropathy - per tobacco feeder catcher report - Continue with the metanex. Loss [...] to help decrease irritation of urethra. . I have called Dr. Rock about [...] compression and prn use of lasix . Hypertension - well controlled - continue [...] their heart rate is becoming uncontrolled. . Cerumen Impaction - The [...] had left kidney and ureter removed in [place]- doing well . Hematuria - check UA. [...] sent to the pharmacy. continue with amlodipine. . Hypertension - well controlled - continue [...] of bedbugs, call if there is evidence. Elevated digoxin level - pt was recommended [...] the weight that was lost during hospitalization. pt is to stop her omeprazole and [...] the treatment when you get back from [place] - will also ask him about doing [...] 10mg daily after acute infection resolves. . Abdominal pain-N/V-patient acutely ill and requires [...] acute concerns. Bruising-left leg-no injuury-on coumadin-check PT/INR diflucan 150mg daily x 7 days - [...] daily for decrease in mucus in throat If using nasal spray, instructions as follows: [...] dyspnea on exertion - will ask [place] Patient do an overnight oxygen study on [...] daily use of bactroban - monitor symptoms. get some hylands for leg cramps. Hypertension [...]
--- OUTSIDE RECORDS SUMMARY | 2018-12-10 19:43 | XMS REPORT | CCD ---
Author Author Laura Colin Organization Karma Bahena MD, [facility] Address [address] [place] [address] Phone Care Team Providers Care Online Activist Name Role Phone Karma Bahena PP Unavailable CCM Unavailable Summary Purpose Interface Exchange Insurance Providers Payer name Policy type / Coverage type Covered democrat ID Effective Begin Date Effective End Date WPS Medicare Part B Medicare Part B [id number] 2018 Unknown AARP Medicare Part B [id number] 2018 Unknown Family history Sister Diagnosis Age [...] Unknown House 03/15/[address]: 150332851 Never smoker 03/15/2011 Has the patient ever used illegal drugs? Unknown Has never used illegal drugs 03/15/2011 Allergies, Adverse Reactions, Alerts Substance Reaction Codes Entered Date Inactivated Date Status BACTINE RxNorm: 587913 03/04/2011 No Inactive Date Active MICONAZOLE RxNorm: 6932 03/04/2011 No Inactive Date Active NEOSPORIN RxNorm: 196053 03/04/2011 No Inactive Date Active NEOMYCIN RxNorm: 7299 03/04/2011 No Inactive Date Active CORTISPORIN RxNorm: 39590 03/04/2011 No Inactive Date Active bactrim RxNorm: 961864 03/13/2012 No Inactive Date Active AUGMENTIN diarrhea RxNorm: 572260 2016 No Inactive Date Active METRONIDAZOLE Unknown [...] 401.9 ICD-10: I10 Active 12/25/2013 Unknown Other care home (current) drug therapy ICD-9: V58.83 ICD-10: Z79.899 [...] 706.2 ICD-10: L72.0 Active 02/01/2016 Unknown Other care home (current) drug therapy ICD-9: V58.69 ICD-10: Z79.899 [...] ICD-9: 401.9 ICD-10: I10 12/25/2013 Active Other care home (current) drug therapy ICD-9: V58.83 ICD-10: Z79.899 [...] ICD-9: 706.2 ICD-10: L72.0 02/01/2016 Active Other manager long term care (current) drug therapy ICD-9: V58.69 ICD-10: [...] Instructions Voltaren 1 % topical gel RxNorm: 269953 2 Gram(s) TOP QID on left shoulder and bilateral hands 10/09/2018 11/07/2018 Active levothyroxine 75 mcg tablet RxNorm: 068638 1 Tablet(s) PO daily 09/19/2018 01/16/2019 Active Keflex 500 mg capsule RxNorm: 687747 1 Capsule(s) PO TID 09/12/2018 09/18/2018 Inactive cyclobenzaprine 5 mg tablet RxNorm: 257479 Tablet(s) TABLET(S) 1/2 TABLET(S) PO Q8 NEEDED MUSCLE SPASMS 08/14/2018 No Stop Date Active spironolactone 25 mg tablet RxNorm: 031095 1 Tablet(s) PO BID 08/14/2018 11/06/2019 Active see new directions and quantity Nitro-Bid 2 % transdermal ointment RxNorm: 378363 1 dime size amount TD BID to fingers and toes 08/14/2018 09/12/2018 Inactive cyclobenzaprine 5 mg tablet RxNorm: 822081 TABLET(S) 1/2 TABLET(S) PO Q8 NEEDED MUSCLE SPASMS 08/06/2018 08/13/2018 Inactive amlodipine 5 mg tablet RxNorm: 619884 1/2 Tablet(s) PO daily may take an extra 1/2 pill at the end of the day if blood pressure is elevated over 140 07/26/2018 12/22/2018 Active cefdinir 300 mg capsule RxNorm: 286506 1 Capsule(s) PO BID 06/20/2018 06/26/2018 Inactive cefdinir 300 mg capsule RxNorm: 224818 1 Capsule(s) PO BID 06/20/2018 06/19/2018 Inactive metoprolol succinate ER 50 mg tablet,extended release 24 hr RxNorm: 105383 1.5 Tablet(s) daily 06/15/2018 03/11/2019 Active sucralfate 100 mg/mL oral suspension RxNorm: 798946 2 Teaspoon(s) PO TID as needed with reflux symptoms 06/04/2018 No Stop Date Active Vesicare 10 mg tablet RxNorm: 297417 1 TABLET(S) PO EVERY OTHER DAY 05/14/2018 01/08/2019 Active levothyroxine 50 mcg tablet RxNorm: 455413 1 TABLET(S) PO DAILY 04/30/2018 09/18/2018 Inactive Patient requests 90 days supply spironolactone 25 mg tablet RxNorm: 164300 1 Tablet(s) PO daily 03/14/2018 08/13/2018 Inactive levothyroxine 50 mcg tablet RxNorm: 832717 1 Tablet(s) PO daily 02/01/2018 04/29/2018 Inactive Eliquis 2.5 mg tablet RxNorm: 4929394 1 Tablet(s) PO BID 01/31/2018 02/20/2018 Inactive levothyroxine 50 mcg tablet RxNorm: 791007 1 Tablet(s) PO daily 01/31/2018 01/31/2018 Inactive Eliquis 2.5 mg tablet RxNorm: 5263621 TAKE 1 TABLET BY MOUTH TWICE DAILY 01/23/2018 07/21/2018 Inactive metoprolol succinate ER 50 mg tablet,extended release 24 hr RxNorm: 109579 1 TABLET(S) PO DAILY 01/23/2018 01/30/2018 Inactive metoprolol succinate ER 50 mg tablet,extended release 24 hr RxNorm: 667251 1.5 Tablet(s) daily 01/22/2018 06/14/2018 Inactive lisinopril 20 mg tablet RxNorm: 400793 1/2 Tablet(s) daily 01/19/2018 01/21/2018 Inactive Patient requests 90 days supply Singulair 10 mg tablet RxNorm: 820760 TAKE 1 TABLET BY MOUTH AT BEDTIME 01/18/2018 04/17/2018 Inactive Patient requests 90 days supply Singulair 10 mg tablet RxNorm: 442646 Tablet(s) PO 01/17/2018 01/17/2018 Inactive digoxin 125 mcg tablet RxNorm: 334356 1 TABLET(S) PO DAILY 01/03/2018 12/28/2018 Active Symbicort 160 mcg-4.5 mcg/actuation HFA aerosol inhaler RxNorm: 2388429 2 Puff(s) INH BID 12/14/2017 04/12/2018 Inactive please dispense an aerochamber for patient as well as her symbicort pantoprazole 40 mg tablet,delayed release RxNorm: 999141 1 Tablet(s) PO daily 12/14/2017 12/08/2018 Active cyclobenzaprine 5 mg tablet RxNorm: 931799 Tablet(s) 1/2 TABLET(S) PO Q8 NEEDED MUSCLE SPASMS 12/14/2017 08/05/2018 Inactive ProAir RespiClick 90 mcg/actuation breath activated RxNorm: 4392122 1-2 INH QID as needed shortness of breath 12/14/2017 07/11/2018 Inactive cyclobenzaprine 5 mg tablet RxNorm: 111623 1/2 TABLET(S) PO Q8 NEEDED MUSCLE SPASMS 12/08/2017 12/13/2017 Inactive betamethasone dipropionate 0.05 % topical ointment RxNorm: 441057 1 Application TOP TID use topically on the rectal tissue three times daily x 1 week then as needed 11/13/2017 No Stop Date Active Premarin 0.625 mg/gram vaginal cream RxNorm: 242696 1/2 GRAM(S) VAG TIW 11/13/2017 12/12/2017 Inactive cyclobenzaprine 5 mg tablet RxNorm: 696970 1/2 TABLET(S) PO Q8 NEEDED MUSCLE SPASMS 10/17/2017 12/07/2017 Inactive Vesicare 10 mg tablet RxNorm: 579298 1 Tablet(s) PO every other day 10/17/2017 04/14/2018 Inactive lisinopril 20 mg tablet RxNorm: 239825 1 TABLET(S) PO DAILY 10/02/2017 01/18/2018 Inactive Patient requests 90 days supply levothyroxine 75 mcg tablet RxNorm: 526362 1 TABLET(S) PO DAILY 09/25/2017 01/30/2018 Inactive spironolactone 25 mg tablet RxNorm: 838214 1 TABLET(S) PO DAILY 08/16/2017 03/13/2018 Inactive cyclobenzaprine 5 mg tablet RxNorm: 553718 1/2 TABLET(S) PO Q8 NEEDED MUSCLE SPASMS 08/16/2017 10/16/2017 Inactive Eliquis 2.5 mg tablet RxNorm: 4524694 TAKE 1 TABLET BY MOUTH TWICE DAILY 07/26/2017 01/21/2018 Inactive cyclobenzaprine 5 mg tablet RxNorm: 980341 1/2 Tablet(s) PO Q8 as needed muscle spasms 06/19/2017 08/15/2017 Inactive lisinopril 20 mg tablet RxNorm: 190078 1 TABLET(S) PO DAILY 06/12/2017 10/01/2017 Inactive metoprolol succinate ER 50 mg tablet,extended release 24 hr RxNorm: 523653 1 TABLET(S) PO DAILY 04/07/2017 01/01/2018 Inactive spironolactone 25 mg tablet RxNorm: 954139 1 Tablet(s) PO daily 03/27/2017 03/13/2018 Inactive acyclovir 800 mg tablet RxNorm: 733773 1 Tablet(s) PO TID 03/21/2017 03/30/2017 Inactive acyclovir 800 mg tablet RxNorm: 540436 1 Tablet(s) PO TID 03/21/2017 03/20/2017 Inactive levothyroxine 75 mcg tablet RxNorm: 592765 1 Tablet(s) PO daily 03/16/2017 09/11/2017 Inactive spironolactone 25 mg tablet RxNorm: 947385 1 TABLET(S) PO DAILY 02/09/2017 03/26/2017 Inactive lisinopril 20 mg tablet RxNorm: 532663 1 TABLET(S) PO DAILY 01/02/2017 05/31/2017 Inactive Zithromax Z-Claudio 250 mg tablet RxNorm: 926826 1 Tablet(s) PO UD 11/29/2016 12/03/2016 Inactive ZPACK Keflex 500 mg capsule RxNorm: 515874 1 Capsule(s) PO TID 11/23/2016 12/02/2016 Inactive guaifenesin 400 mg tablet RxNorm: 639959 1 Tablet(s) PO Q6 as needed 11/23/2016 11/27/2016 Inactive omeprazole 40 mg capsule,delayed release RxNorm: 866103 1 Capsule(s) PO QPM 11/02/2016 12/13/2017 Inactive digoxin 125 mcg tablet RxNorm: 238773 1 TABLET(S) PO DAILY 10/27/2016 07/23/2017 Inactive cyclobenzaprine 5 mg tablet RxNorm: 594760 1/2 Tablet(s) PO Q8 PRN 10/25/2016 06/18/2017 Inactive prn muscle spasms Augmentin 500 mg-125 mg tablet RxNorm: 589930 1 Tablet(s) PO BID 10/24/2016 11/02/2016 Inactive Lasix 20 mg tablet RxNorm: 627003 Tablet(s) PRN one to two times a week if needed 07/27/2016 No Stop Date Active Patient requests 90 days supply spironolactone 25 mg tablet RxNorm: 273441 1 Tablet(s) PO daily 07/27/2016 02/08/2017 Inactive Diflucan 150 mg tablet RxNorm: 445500 1 Tablet(s) PO daily 07/27/2016 08/02/2016 Inactive lisinopril 20 mg tablet RxNorm: 731015 1 Tablet(s) PO daily 07/12/2016 01/01/2017 Inactive Lasix 20 mg tablet RxNorm: 615753 1 TABLET(S) PO EVERY OTHER DAY EVERY OTHER DAY 06/10/2016 07/26/2016 Inactive Patient requests 90 days supply potassium chloride ER 10 mEq capsule,extended release RxNorm: 389894 1 CAPSULE(S) PO EVERY OTHER DAY 06/10/2016 07/26/2016 Inactive Patient requests 90 days supply potassium chloride ER 10 mEq capsule,extended release RxNorm: 453817 1 Capsule(s) PO every other day 06/09/2016 06/09/2016 Inactive Lasix 20 mg tablet RxNorm: 686626 1 Tablet(s) PO every other day every other day 06/09/2016 06/09/2016 Inactive levothyroxine 88 mcg tablet RxNorm: 220648 1 Tablet(s) PO daily 05/11/2016 11/06/2016 Inactive Premarin 0.625 mg/gram vaginal cream RxNorm: 433898 1/2 Gram(s) VAG TIW 03/24/2016 03/18/2017 Inactive metoprolol succinate ER 50 mg tablet,extended release 24 hr RxNorm: 103766 1 Tablet(s) PO daily 03/24/2016 03/18/2017 Inactive pantoprazole 40 mg tablet,delayed release RxNorm: 614008 1 Tablet(s) PO daily 02/08/2016 11/01/2016 Inactive betamethasone dipropionate 0.05 % topical ointment RxNorm: 088235 1 Application TOP TID use topically on the rectal tissue three times daily x 1 week then as needed 02/02/2016 11/12/2017 Inactive pantoprazole 40 mg tablet,delayed release RxNorm: 048955 1 Tablet(s) PO daily 2016 02/07/2016 Inactive alprazolam 0.25 mg tablet RxNorm: 952209 1 Tablet(s) PO Q6 as needed 12/04/2015 No Stop Date Active Vesicare 10 mg tablet RxNorm: 600368 1 Tablet(s) PO every other day 11/03/2015 10/16/2017 Inactive alprazolam 0.25 mg tablet RxNorm: 002462 1 Tablet(s) PO Q6 as needed 11/03/2015 12/03/2015 Inactive Premarin 0.625 mg/gram vaginal cream RxNorm: 800966 1/2 Gram(s) VAG TIW 11/03/2015 03/23/2016 Inactive levothyroxine 88 mcg tablet RxNorm: 727131 1 Tablet(s) PO daily 11/03/2015 05/10/2016 Inactive Diflucan 150 mg tablet RxNorm: 181917 1 Tablet(s) PO daily 10/19/2015 10/25/2015 Inactive cetirizine 10 mg chewable tablet RxNorm: 1918443 1 Tablet(s) PO daily 10/13/2015 11/11/2015 Inactive cetirizine 10 mg capsule RxNorm: 9999751 1 Capsule(s) PO daily 10/13/2015 11/11/2015 Inactive Vesicare 10 mg tablet RxNorm: 092440 1/2 TABLET(S) PO BID 09/21/2015 11/02/2015 Inactive betamethasone dipropionate 0.05 % topical ointment RxNorm: 743964 1 Application TOP TID use topically on the rectal tissue three times daily x 1 week then as needed 09/15/2015 02/01/2016 Inactive lisinopril 20 mg tablet RxNorm: 217973 1 Tablet(s) PO daily 09/01/2015 07/11/2016 Inactive digoxin 125 mcg tablet RxNorm: 194916 1 Tablet(s) PO daily 09/01/2015 08/25/2016 Inactive Augmentin 500 mg-125 mg tablet RxNorm: 481105 1 Tablet(s) PO TID 05/26/2015 06/04/2015 Inactive Pyridium 200 mg tablet RxNorm: 7443670 1 Tablet(s) PO TID 05/26/2015 05/27/2015 Inactive levothyroxine 88 mcg tablet RxNorm: 496625 1 Tablet(s) PO daily except 1/2 pill on monday and 05/07/2015 11/02/2015 Inactive digoxin 125 mcg tablet RxNorm: 726300 1 Tablet(s) PO daily 05/07/2015 08/31/2015 Inactive lisinopril 20 mg tablet RxNorm: 693382 1 TABLET(S) PO BID 04/13/2015 09/01/2015 Inactive Coumadin 1 mg tablet RxNorm: 154754 1 TABLET(S) PO DAILY 03/31/2015 08/31/2015 Inactive Coumadin 2 mg tablet RxNorm: 736315 4MG IN AM AND 1MG AT NIGHT TABLET(S) PO DAILY DIRECTED. 03/31/2015 08/31/2015 Inactive levothyroxine 88 mcg tablet RxNorm: 083503 1 Tablet(s) PO daily 03/23/2015 05/06/2015 Inactive alprazolam 0.25 mg tablet RxNorm: 861431 Tablet(s) PO 03/23/2015 04/06/2015 Inactive levothyroxine 88 mcg tablet RxNorm: 243179 1 Tablet(s) PO daily 01/28/2015 03/22/2015 Inactive levothyroxine 88 mcg tablet RxNorm: 463116 1 Tablet(s) PO daily 01/28/2015 01/27/2015 Inactive diltiazem ER 120 mg capsule,extended release RxNorm: 854982 1 Capsule(s) PO BID patient would like 4 months at a time 01/06/2015 09/28/2015 Inactive digoxin 125 mcg tablet RxNorm: 542735 Tablet(s) 1 TABLET(S) PO DAILY 12/24/2014 12/23/2014 Inactive pt will be paying palomares (On $4 list)Patient requests 90 days supply digoxin 125 mcg tablet RxNorm: 615678 Tablet(s) 1 TABLET(S) PO DAILY M W F Sat and 2 tabs on T TH 12/24/2014 05/06/2015 Inactive pt will be paying palomares (On $4 list)Patient requests 90 days supply dicyclomine 20 mg tablet RxNorm: 852562 1 Tablet(s) PO daily 11/17/2014 08/31/2015 Inactive one ac dinner and up to tid prn levothyroxine 88 mcg tablet RxNorm: 154712 1 Tablet(s) PO daily 11/03/2014 01/27/2015 Inactive Premarin 0.625 mg/gram vaginal cream RxNorm: 769069 1 APPLICATION VAG 1 APPLICATOR PER VAGINA 3 TIMES PER WEEK 11/03/2014 07/30/2015 Inactive digoxin 125 mcg tablet RxNorm: 173859 1 TABLET(S) PO DAILY 09/29/2014 12/23/2014 Inactive pt will be paying palomares (On $4 list)Patient requests 90 days supply digoxin 125 mcg tablet RxNorm: 503263 1 TABLET(S) PO DAILY 07/11/2014 04/06/2015 Inactive Vesicare 10 mg tablet RxNorm: 074754 1/2 Tablet(s) PO BID 05/20/2014 05/14/2015 Inactive Levaquin 500 mg tablet RxNorm: 837489 1 Tablet(s) PO daily 05/06/2014 05/08/2014 Inactive take probiotic BID while on ABT Levaquin 500 mg tablet RxNorm: 690499 1 Tablet(s) PO daily 05/02/2014 05/05/2014 Inactive take probiotic BID while on ABT diltiazem ER 120 mg capsule,extended release RxNorm: 607388 1 Capsule(s) PO BID patient would like 4 months at a time 04/29/2014 2015 Inactive Vesicare 10 mg tablet RxNorm: 135893 1/2 Tablet(s) PO BID 04/29/2014 05/19/2014 Inactive lisinopril 20 mg tablet RxNorm: 737129 1 Tablet(s) PO BID 03/20/2014 03/14/2015 Inactive diltiazem 90 mg tablet RxNorm: 599917 1/2 TABLET(S) PO QPM 03/04/2014 04/28/2014 Inactive also 180 q am diltiazem ER 120 mg capsule,extended release RxNorm: 273192 1 Capsule(s) PO daily patient would like 4 months at a time 01/29/2014 04/28/2014 Inactive Vesicare 10 mg tablet RxNorm: 787353 1 Tablet(s) PO QHS 01/14/2014 04/28/2014 Inactive Coumadin 2 mg tablet RxNorm: 616544 4mg in AM and 1mg at night Tablet(s) PO daily as directed. 12/25/2013 03/30/2015 Inactive Metanx 3 mg-35 mg-2 mg tablet RxNorm: 1 Tablet(s) PO daily 12/25/2013 11/02/2015 Inactive digoxin 125 mcg tablet RxNorm: 841959 1 Tablet(s) PO daily 12/25/2013 09/28/2014 Inactive pt will be paying palomares (On $4 list) Coumadin 2 mg tablet RxNorm: 414891 7.5 wed 5mg other Tablet(s) PO as directed. 12/03/2013 12/24/2013 Inactive omeprazole 20 mg tablet,delayed release RxNorm: 151111 1 Tablet(s) PO BID 11/27/2013 04/28/2014 Inactive Coumadin 2 mg tablet RxNorm: 777214 5 mg daily Tablet(s) PO as directed. 11/26/2013 12/02/2013 Inactive 5 mg daily Xanax 0.25 mg tablet RxNorm: 142673 1 Tablet(s) PO Q6 PRN 11/11/2013 12/25/2013 Inactive alprazolam 0.25 mg tablet RxNorm: 461843 tablet oral 11/11/2013 03/22/2015 Inactive sucralfate 1 gram tablet RxNorm: 324343 1 Tablet(s) PO AC & HS 11/04/2013 11/03/2013 Inactive sucralfate 1 gram tablet RxNorm: 137351 1 Tablet(s) PO AC & HS 11/04/2013 01/02/2014 Inactive Synthroid 100 mcg tablet RxNorm: 018107 1 Tablet(s) PO daily 10/31/2013 10/25/2014 Inactive Synthroid 100 mcg tablet RxNorm: 205473 1 Tablet(s) PO daily 09/30/2013 10/29/2013 Inactive Vesicare 10 mg tablet RxNorm: 556658 1 Tablet(s) PO QHS 09/30/2013 01/13/2014 Inactive Lotemax 0.5 % eye ointment RxNorm: 3951643 ointment opht 09/06/2013 12/10/2013 Inactive levothyroxine 100 mcg tablet RxNorm: 276553 tablet oral 09/05/2013 11/02/2014 Inactive Synthroid 100 mcg tablet RxNorm: 208863 1 Tablet(s) PO daily 09/05/2013 09/29/2013 Inactive Prolia 60 mg/mL Sub-Q Syringe RxNorm: 106553 1 Milliliter(s) SQ 06/25/2013 11/02/2015 Inactive dicyclomine 20 mg tablet RxNorm: 886624 1 Tablet(s) PO daily 06/24/2013 06/18/2014 Inactive one ac dinner and up to tid prn omeprazole 20 mg tablet,delayed release RxNorm: 980574 1 Tablet(s) PO BID 06/24/2013 11/26/2013 Inactive Cipro 500 mg tablet RxNorm: 186087 1 Tablet(s) PO BID 06/20/2013 06/26/2013 Inactive diltiazem ER 120 mg capsule,extended release RxNorm: 593228 1 Capsule(s) PO daily patient would like 4 months at a time 06/03/2013 01/28/2014 Inactive Coumadin 2 mg tablet RxNorm: 749681 as directed Tablet(s) PO as directed. 05/29/2013 11/25/2013 Inactive 5 mg daily Synthroid 88 mcg tablet RxNorm: 848242 1 Tablet(s) PO daily 04/24/2013 04/23/2013 Inactive Synthroid 88 mcg tablet RxNorm: 959155 1 Tablet(s) PO daily 04/24/2013 07/28/2013 Inactive Premarin 0.625 mg/gram vaginal cream RxNorm: 572377 1 Application VAG 1 applicator per vagina 3 times per week 04/23/2013 04/17/2014 Inactive Influenza Virus Vaccine 0.5 mL RxNorm: IM 04/23/2013 04/23/2013 Inactive digoxin 125 mcg tablet RxNorm: 204621 1 Tablet(s) PO daily 02/20/2013 04/20/2013 Inactive pt will be paying palomares (On $4 list) Digox 125 mcg tablet RxNorm: 5697904 tablet oral 02/13/2013 03/20/2014 Inactive digoxin 125 mcg tablet RxNorm: 135777 1 Tablet(s) PO daily 02/13/2013 02/19/2013 Inactive diltiazem 90 mg tablet RxNorm: 681285 1/2 Tablet(s) PO QPM 02/13/2013 02/07/2014 Inactive also 180 q am Levoxyl 75 mcg tablet RxNorm: 411467 1 Tablet(s) PO 01/16/2013 04/23/2013 Inactive Coumadin 2 mg tablet RxNorm: 402675 6mg daily except 3mg on wed and fri Tablet(s) PO 01/15/2013 05/28/2013 Inactive 5 mg daily Coumadin 2 mg tablet RxNorm: 602960 6mg daily Tablet(s) PO 12/21/2012 01/14/2013 Inactive 5 mg daily silver sulfadiazine 1 % Topical Cream RxNorm: 389536 TOP apply to affected area with each dressing change 12/19/2012 12/25/2013 Inactive cephalexin 500 mg tablet RxNorm: 527733 1 Tablet(s) PO TID 12/11/2012 12/17/2012 Inactive digoxin 125 mcg tablet RxNorm: 665931 1 Tablet(s) PO daily 10/30/2012 02/12/2013 Inactive digoxin 125 mcg tablet RxNorm: 156475 2 tab tue thurs one other days Tablet(s) PO daily 10/23/2012 10/29/2012 Inactive lisinopril 10 mg tablet RxNorm: 481134 1 Tablet(s) PO daily 10/17/2012 08/14/2013 Inactive Cipro 500 mg tablet RxNorm: 107661 1 Tablet(s) PO BID 09/13/2012 09/19/2012 Inactive Coumadin 1 mg tablet RxNorm: 960502 1 Tablet(s) PO daily 09/03/2012 09/02/2012 Inactive Coumadin 1 mg tablet RxNorm: 821413 1 Tablet(s) PO daily 09/03/2012 12/21/2012 Inactive Coumadin 2 mg tablet RxNorm: 855566 Tablet(s) PO 07/25/2012 12/20/2012 Inactive 5 mg daily digoxin 125 mcg tablet RxNorm: 740381 1 Tablet(s) PO daily 06/28/2012 10/22/2012 Inactive Coumadin 2 mg tablet RxNorm: 282036 Tablet(s) PO 06/27/2012 07/24/2012 Inactive 5mg daily except 4mg on monday Coumadin 2 mg tablet RxNorm: 495695 Tablet(s) PO 06/19/2012 06/26/2012 Inactive 5mg e mon thur sat sun4mg mon(has 2mg and 1 mg tab) digoxin 125 mcg tablet RxNorm: 902838 1 Tablet(s) PO daily 05/29/2012 06/27/2012 Inactive Coumadin 2 mg tablet RxNorm: 788574 Tablet(s) PO 05/15/2012 06/18/2012 Inactive 5mg tue thur sat sun4mg mon(has 2mg and 1 mg tab) Coumadin 2 mg tablet RxNorm: 360357 Tablet(s) PO 04/25/2012 05/14/2012 Inactive 5mg tue thru sat4mg mon sun(has 2mg and 1 mg tab) Metanx 3 mg-35 mg-2 mg tablet RxNorm: 1 Tablet(s) PO BID 04/18/2012 12/24/2013 Inactive dicyclomine 20 mg tablet RxNorm: 225701 1 Tablet(s) PO 04/18/2012 06/23/2013 Inactive one ac dinner and up to tid prn digoxin 125 mcg tablet RxNorm: 842735 Tablet(s) PO daily except .25 on Tuesdays and 04/09/2012 05/28/2012 Inactive omeprazole 20 mg tablet,delayed release RxNorm: 218696 1 Tablet(s) PO BID 04/09/2012 04/03/2013 Inactive digoxin 125 mcg tablet RxNorm: 279767 1 Tablet(s) PO UD daily except none on Tuesdays and 03/13/2012 04/08/2012 Inactive Premarin 0.625 mg/gram Vaginal Cream RxNorm: 558997 1 Application VAG 1 applicator per vagina 3 times per week 02/20/2012 02/13/2013 Inactive omeprazole 20 mg tablet,delayed release RxNorm: 957396 1 Tablet(s) PO BID 02/13/2012 04/08/2012 Inactive Vesicare 10 mg tablet RxNorm: 778210 1 Tablet(s) PO QHS 02/13/2012 02/06/2013 Inactive Diflucan 150 mg tablet RxNorm: 790112 1 Tablet(s) PO daily 02/13/2012 02/19/2012 Inactive omeprazole 20 mg tablet,delayed release RxNorm: 620619 1 Tablet(s) PO BID 01/06/2012 02/12/2012 Inactive Calcium 600 + D(3) 600 mg (1,500)-200 unit Tab RxNorm: 373967 2 Tablet(s) PO BID 01/06/2012 08/31/2015 Inactive diltiazem 90 mg tablet RxNorm: 027865 1/2 Tablet(s) PO QPM 12/26/2011 02/12/2013 Inactive also 180 q am diltiazem ER 180 mg Cap RxNorm: 436513 1 Capsule(s) PO QAM 12/26/2011 04/08/2012 Inactive 45mg q hs Flagyl 500 mg Tab RxNorm: 717298 1 Tablet(s) PO BID 12/14/2011 12/20/2011 Inactive dicyclomine 10 mg Cap RxNorm: 984156 1 Capsule(s) PO AC & HS 12/01/2011 12/25/2011 Inactive Levaquin 500 mg Tab RxNorm: 913485 1 Tablet(s) PO daily 11/23/2011 11/29/2011 Inactive Rocephin 500 mg Solution for Injection RxNorm: 0765866 Inj 11/23/2011 11/23/2011 Inactive acyclovir 400 mg Tab RxNorm: 154004 1 Tablet(s) PO QID 11/10/2011 11/19/2011 Inactive acyclovir 400 mg Tab RxNorm: 699171 1 Tablet(s) PO QID 11/10/2011 11/09/2011 Inactive lisinopril 20 mg Tab RxNorm: 912079 1 Tablet(s) PO daily 10/03/2011 11/27/2011 Inactive lisinopril 20 mg Tab RxNorm: 366122 1 Tablet(s) PO daily 08/08/2011 10/02/2011 Inactive Reclast 5 mg/100 mL IV RxNorm: 424660 Milliliter(s) IV Yearly 06/08/2011 01/16/[address] Hansen manages Rocephin 500 mg Solution for Injection RxNorm: 7927420 1 Milliliter(s) Inj 03/04/2011 08/08/2011 Inactive Ceftin 500 mg Tab RxNorm: 102919 1 Tablet(s) PO BID 03/04/2011 08/08/2011 Inactive Vitamin D3 1,000 unit tablet RxNorm: 660373 2 Tablet(s) PO daily No Start Date Active Stool Softener 100 mg tablet RxNorm: 5990055 2 Tablet(s) PO QHS No Start Date Active Beano tablet RxNorm: 2-3 Tablet(s) PO as needed No Start Date Active Probiotic Pearls 15 mg (1 billion cell) capsule,delayed release RxNorm: 1 Capsule(s) PO daily No Start Date Active Lipitor 10 mg tablet RxNorm: 053846 1 Tablet(s) PO daily No Start Date Active Miralax 17 gram oral powder packet RxNorm: 192473 1/2 packet PO QHS No Start Date Active multivitamin Tab RxNorm: 1 Tablet(s) PO daily No Start Date Active Tylenol Extra Strength 500 mg tablet RxNorm: 620135 2 Tablet(s) PO as needed No Start Date Active Combigan 0.2 %-0.5 % eye drops RxNorm: 479594 1 Drop(s) OPH BID No Start Date Active 1 drop twice daily left eye Lexapro 5 mg tablet RxNorm: 609837 1 Tablet(s) PO daily No Start Date Active Tatiana Allergy 180 mg tablet RxNorm: 397013 1 Tablet(s) PO daily No Start Date Active Lotemax 0.5 % eye drops,suspension RxNorm: 985330 1 Drop(s) OPH right eye BID No Start Date Active Levoxyl 50 mcg tablet RxNorm: 346064 1 Tablet(s) PO daily No Start Date 01/15/2013 Inactive lisinopril-hydrochlorothiazide 20 mg-25 mg Tab RxNorm: 335281 1 Tablet(s) PO daily No Start Date 08/07/2011 Inactive Metanx 3 mg-35 mg-2 mg tablet RxNorm: 1 Tablet(s) PO daily No Start Date 04/17/2012 Inactive diltiazem CD 120 mg capsule,extended release 24 hr RxNorm: 360631 1 Capsule(s) PO daily No Start Date 09/28/2015 Inactive lisinopril 20 mg tablet RxNorm: 258734 Tablet(s) PO No Start Date Active Lumigan 0.01 % Eye Drops RxNorm: 3818121 1 Drop(s) OPH daily Left eye No Start Date 12/10/2013 Inactive prednisolone acetate 1 % Eye Drops, Susp RxNorm: 2181733 1 Drop(s) OPH BID 1 drop right eye am and hs No Start Date 11/02/2015 Inactive Eliquis 5 mg tablet RxNorm: 3616104 1 Tablet(s) PO BID No Start Date 06/08/2016 Inactive potassium gluconate (bulk) Misc RxNorm: Miscellaneous No Start Date 12/25/2011 Inactive Calcium 600 + D(3) 600 mg (1,500)-200 unit Tab RxNorm: 491021 3 Tablet(s) PO daily No Start Date 2012 Inactive Zyrtec 10 mg tablet RxNorm: 1844924 1 Tablet(s) PO daily No Start Date 08/02/2016 Inactive Synthroid 100 mcg tablet RxNorm: 066554 1 Tablet(s) PO daily No Start Date 09/04/2013 Inactive metoprolol succinate ER 50 mg tablet,extended release 24 hr RxNorm: 030322 1 Tablet(s) PO daily No Start Date 03/23/2016 Inactive Carafate 100 mg/mL oral suspension RxNorm: 517535 2 Teaspoon(s) PO as needed with reflux symptoms No Start Date 06/03/2018 Inactive Metanx 3 mg-35 mg-2 mg tablet RxNorm: 1 Tablet(s) PO daily 2pm No Start Date 11/02/2015 Inactive Lexapro 5 mg tablet RxNorm: 909700 1 Tablet(s) PO daily No Start Date 08/18/2015 Inactive Iron (dried) oral RxNorm: 29572 oral No Start Date 11/02/2015 Inactive timolol 0.5 % Eye Drops RxNorm: 416199 1 Drop(s) OPH daily left eye No Start Date 12/18/2013 Inactive multivitamin Cap RxNorm: 1 Capsule(s) PO daily No Start Date 12/25/2011 Inactive dicyclomine 10 mg Cap RxNorm: 276225 2 Capsule(s) PO daily No Start Date 11/30/2011 Inactive silver sulfadiazine 1 % Topical Cream RxNorm: 594329 TOP apply to affected area with each dressing change No Start Date 12/18/2012 Inactive magnesium oxide 400 mg Tab RxNorm: 071275 1 Tablet(s) PO daily No Start Date 11/02/2015 Inactive Pradaxa 75 mg Cap RxNorm: 7119454 1 Capsule(s) PO BID No Start Date 04/09/2012 Inactive magnesium oxide 400 mg Tab RxNorm: 436170 2 Tablet(s) PO daily magnesium plus zinc No Start Date 12/25/2011 Inactive biotin 1000 mg RxNorm: 1 PO daily No Start Date 12/25/2011 Inactive Synthroid 50 mcg Tab RxNorm: 575540 Tablet(s) PO No Start Date 12/25/2011 Inactive diltiazem ER 180 mg Cap RxNorm: 199779 1 Capsule(s) PO daily No Start Date 12/25/2011 Inactive 1 D 3 1000 iu Oral RxNorm: Oral No Start Date 12/25/2011 Inactive Coumadin 2 mg tablet RxNorm: 647954 Tablet(s) PO No Start Date 04/24/2012 Inactive 5mg tue [id number] mon fri sat sun(has 2mg and 1 mg tab) dicyclomine 20 mg tablet RxNorm: 543827 Tablet(s) PO No Start Date 04/17/2012 Inactive one ac dinner and up to tid prn lactobacillus acidophilus tablet RxNorm: 1 Tablet(s) PO daily No Start Date 11/03/2015 Inactive Eliquis 2.5 mg tablet RxNorm: 2616026 1 Tablet(s) PO BID No Start Date 07/25/2017 Inactive Levoxyl 75 mcg Tab RxNorm: 070435 1 Tablet(s) PO daily No Start Date 10/02/2011 Inactive digoxin 125 mcg tablet RxNorm: 259186 1 Tablet(s) PO daily No Start Date 03/12/2012 Inactive pantoprazole 40 mg tablet,delayed release RxNorm: 980192 1 Tablet(s) PO BID No Start Date 01/04/2016 Inactive cyclobenzaprine 5 mg tablet RxNorm: 420775 1/2 Tablet(s) PO Q8 PRN No Start Date 10/24/2016 Inactive diltiazem 90 mg Tab RxNorm: 234259 1/2 Tablet(s) PO QPM No Start Date 12/25/2011 Inactive Mirapex 1 mg Tab RxNorm: 811713 1 Tablet(s) PO QHS No Start Date 12/25/2011 Inactive Xanax 0.25 mg tablet RxNorm: 620300 1 Tablet(s) PO Q6 PRN No Start Date 11/10/2013 Inactive Premarin 0.625 mg/gram Vaginal Cream RxNorm: 284403 1 Application VAG 1 applicator per vagina 3 times per week No Start Date 02/19/2012 Inactive Synthroid 75 mcg Tab RxNorm: 942765 1 Tablet(s) PO daily No Start Date 04/17/2012 Inactive lisinopril 40 mg Tab RxNorm: 813163 1 Tablet(s) PO daily No Start Date 12/25/2011 Inactive Glucosamine Chondroitin Complex Advanced [id number]-929xd-423zm-1.65mg Tab RxNorm: 2 Tablet(s) PO daily No Start Date 08/08/2011 Inactive famotidine 20 mg tablet RxNorm: 387651 1 Tablet(s) PO QAM No Start Date 11/02/2015 Inactive cranberry extract 250 mg Tab RxNorm: 073623 2 Tablet(s) PO daily No Start Date 08/08/2011 Inactive Vitamin D3 1,000 unit capsule RxNorm: 162936 1 Capsule(s) PO daily No Start Date 08/31/2015 Inactive aspirin 81 mg Tab, Delayed Release RxNorm: 665127 1 Tablet(s) PO daily No Start Date 08/31/2015 Inactive diltiazem ER 120 mg capsule,extended release RxNorm: 181143 1 Capsule(s) PO daily patient would like 4 months at a time No Start Date 06/02/2013 Inactive omeprazole 20 mg Tab, Delayed Release RxNorm: 131712 2 Tablet(s) PO QHS No Start Date 2012 Inactive lisinopril 10 mg tablet RxNorm: 683928 1/2 Tablet(s) PO daily No Start Date 10/16/2012 Inactive Pred Forte 1 % Eye Drops RxNorm: 691370 1 Drop(s) OPH daily right eye No Start Date 12/25/2013 Inactive calcium carbonate 400 mg Chewable Tab RxNorm: 599562 1 Tablet(s) PO daily No Start Date 08/08/2011 Inactive Vesicare 10 mg tablet RxNorm: 984184 1 Tablet(s) PO QHS No Start Date 02/12/2012 Inactive Symbicort 160 mcg-4.5 mcg/actuation HFA aerosol inhaler RxNorm: 1274824 2 Puff(s) INH BID No Start Date 12/13/2017 Inactive potassium 99 mg tablet RxNorm: 1 Tablet(s) PO QPM No Start Date 12/25/2013 Inactive timolol 0.25 % Eye Drops RxNorm: 859928 1 Drop(s) OPH daily Left eye No Start Date 04/17/2012 Inactive diltiazem ER 90 mg capsule,extended release 12 hr RxNorm: 295413 1/2 Capsule(s) PO QPM No Start Date 04/28/2014 Inactive cyclobenzaprine 5 mg Tab RxNorm: 134580 1/2-1 Tablet(s) PO Q8 PRN No Start Date 12/25/2011 Inactive 1/2 - 1 tab q 8hrs prn muscle spasms Medication Administered Medication Codes Instructions Start Date Status Influenza Virus Vaccine 0.5 mL RxNorm: 04/23/2013 No longer Active Rocephin 500 mg Solution for Injection RxNorm: 2805372 11/23/2011 No longer Active Immunizations Vaccine Codes [...] hypertension ICD-10: I10 ICD-9: 401.9 01/31/2018 Other care home (current) drug therapy ICD-10: Z79.899 ICD-9: V58.83 [...] hemorrhoids ICD-10: K64.0 ICD-9: 455.6 03/24/2016 Other manager long term care (current) drug therapy ICD-10: Z79.899 ICD-9: [...] Ord62 ANION GAP 12 09/25/2018 Comp Metabolic Nrm936 NA 130 mEq/L 09/12/2018 Comp Metabolic Xjg166 K 4.2 mEq/L 09/12/2018 Comp Metabolic Sej176 CL 98 mEq/L 09/12/2018 Comp Metabolic Fnn630 CO2 23.0 mEq/L 09/12/2018 Comp Metabolic Dnf917 ANION GAP 13 09/12/2018 Comp Metabolic Cck645 GLUCOSE 129 mg/dL 09/12/2018 Comp Metabolic Bpz179 Creat 1.0 mg/dL 09/12/2018 Comp Metabolic Gzx319 eGFR 58 ml/min/1.73m2 09/12/2018 Comp Metabolic Pvh664 BUN 28 mg/dL 09/12/2018 Comp Metabolic Sdh138 B/C Ratio 28.9 Ratio 09/12/2018 Comp Metabolic Sqq594 CALCIUM 9.1 mg/dL 09/12/2018 Comp Metabolic Noi324 ALK PHOS 59 U/L 09/12/2018 Comp Metabolic Mcu277 AST(SGOT) 21 U/L 09/12/2018 Comp Metabolic Uyy199 ALT(SGPT) 19 U/L 09/12/2018 Comp Metabolic Cjk213 BILI T 0.8 mg/dL 09/12/2018 Comp Metabolic Iwu372 ALBUMIN 3.9 g/dL 09/12/2018 Comp Metabolic Rau282 TPRO 6.5 g/dL 09/12/2018 Comp Metabolic Fpw399 GLOB 2.6 g/dL 09/12/2018 Comp Metabolic Ucr026 A/G Ratio 1.5 Ratio 09/12/2018 Comp Metabolic Fty483 Osmo 268 mOsmo 09/12/2018 Tsh Ord6 TSH (3rd IS) 12.84 uIU/mL 09/12/2018 Influenza A+B Gtg223 Influ A+B Negative 09/12/2018 Cbc With Differential [...] 12.3 % 09/12/2018 Cbc With Differential Ord2 Harris% 12.0 % 09/12/2018 Cbc With Differential Ord2 [...] 0.85 K/ul 09/12/2018 Cbc With Differential Ord2 Harris ABS# 0.8 K/ul 09/12/2018 Cbc With Differential Ord2 Eos ABS# 0.1 K/ul 09/12/2018 Cbc With Differential Ord2 Baso ABS# 0.0 K/ul 09/12/2018 Free T4 Mlk072 FREE T4 1.10 ng/dL 09/12/2018 Free T4 Gse424 FREE T4 1.19 ng/dL 05/08/2018 Digoxin Ord9 DIGOXIN 0.6 NG/ML 05/08/2018 Tsh Ord6 TSH (3rd IS) 10.58 uIU/mL 05/08/2018 Tsh Ord6 TSH (3rd IS) 1.07 uIU/mL 01/31/2018 Free T4 Onw120 FREE T4 1.63 ng/dL 01/31/2018 Digoxin Ord9 DIGOXIN 0.8 NG/ML 01/31/2018 C RAP A SC [id number] Strep A Negative 11/21/2016 Thyroid Antibodies 971544 THYROGLOBULIN ANTIBODY . 11/04/2016 Thyroid Antibodies 920763 THYROGLOBULIN ANTIBODY 919 IU/mL 11/04/2016 Thyroid Antibodies 667578 THYROID PEROXIDASE (TPO) AB . 11/04/2016 Thyroid Antibodies 908972 THYROID PEROXIDASE (TPO) AB 10 IU/mL 11/04/2016 Total T3 Ord42 TT3 0.64 ng/ml 11/03/2016 Free T4 Pcv164 FREE T4 1.39 ng/dL 11/02/2016 Tsh Ord6 [...] Differential Ord2 RDW 13.8 % 05/26/2015 Pt Bws0435 PT 25.0 seconds 05/26/2015 Pt Hql2900 INR 2.4 05/26/2015 Pt Khc1301 Low Intensity - 1.5-2.0 05/26/2015 Pt Flh2804 Mod intensity - 2.0-3.0 05/26/2015 Pt Hqs2977 Hi intensity - 3.0-4.0 05/26/2015 Uric Acid [...] Digoxin Ord9 DIGOXIN 0.6 NG/ML 05/06/2015 Pt Xkd2558 PT 23.3 seconds 05/06/2015 Pt Uwp5668 INR 2.1 05/06/2015 Pt Mea8387 Low Intensity - 1.5-2.0 05/06/2015 Pt Kra9309 Mod intensity - 2.0-3.0 05/06/2015 Pt Keg5679 Hi intensity - 3.0-4.0 05/06/2015 Free T4 Ftj872 FREE T4 1.65 ng/dL 05/06/2015 Comp Metabolic Dib923 NA 132 mEq/L 05/06/2015 Comp Metabolic Kyc701 K 4.1 mEq/L 05/06/2015 Comp Metabolic Yqi466 CL 98 mEq/L 05/06/2015 Comp Metabolic Wrk499 CO2 27.0 mEq/L 05/06/2015 Comp Metabolic Tso269 ANION GAP 11 05/06/2015 Comp Metabolic Npu539 GLUCOSE 71 mg/dL 05/06/2015 Comp Metabolic Mnk007 Creat 0.7 mg/dL 05/06/2015 Comp Metabolic Ydy732 eGFR 82 ml/min/1.73m2 05/06/2015 Comp Metabolic Egj763 BUN 16 mg/dL 05/06/2015 Comp Metabolic Xfn004 B/C Ratio 22.2 Ratio 05/06/2015 Comp Metabolic Rpq931 CALCIUM 9.4 mg/dL 05/06/2015 Comp Metabolic Hmo100 ALK PHOS 60 U/L 05/06/2015 Comp Metabolic Xnj815 AST(SGOT) 22 U/L 05/06/2015 Comp Metabolic Xhp243 ALT(SGPT) 24 U/L 05/06/2015 Comp Metabolic Oqg017 BILI T 0.8 mg/dL 05/06/2015 Comp Metabolic Xko682 ALBUMIN 4.3 g/dL 05/06/2015 Comp Metabolic Uqg700 TPRO 7.6 g/dL 05/06/2015 Comp Metabolic Ifv583 GLOB 3.3 g/dL 05/06/2015 Comp Metabolic Nws267 A/G Ratio 1.3 Ratio 05/06/2015 Comp Metabolic Dix106 Osmo 264 mOsmo 05/06/2015 DIGOXIN 2449794 DIGOXIN 1.1 NG/ML 05/15/2013 PT/MC 9768023 PRO TIME 21.7 SEC 05/15/2013 PT/MC 1335901 INR MCMC 2.0 05/15/2013 CHEM 14 3633437 AST 24 U/L 04/23/2013 CHEM 14 7217820 ALT 31 IU/L 04/23/2013 CHEM 14 7643607 BUN 13 MG/DL 04/23/2013 CHEM 14 9195721 ALBUMIN 4.1 GM/DL 04/23/2013 CHEM 14 3494796 CHLORIDE 103 MMOL/L 04/23/2013 CHEM 14 2055983 BILI TOT 0.5 MG/DL 04/23/2013 CHEM 14 8516211 ALK PHOS 44 U/L 04/23/2013 CHEM 14 7552996 SODIUM 137 MMOL/L 04/23/2013 CHEM 14 6165455 CREATININE 0.61 MG/DL 04/23/2013 CHEM 14 6080985 CALCIUM 9.5 MG/DL 04/23/2013 CHEM 14 7444108 POTASSIUM 4.0 MMOL/L 04/23/2013 CHEM 14 1534945 PROT TOT 6.6 GM/DL 04/23/2013 CHEM 14 4759549 GLUCOSE 99 MG/DL 04/23/2013 CHEM 14 7353530 BICARB 27 MMOL/L 04/23/2013 CHEM 14 5098774 ANION GAP 7 MEQ/L 04/23/2013 GFR CALC 2192578 GFR AA >60 ML/MIN 04/23/2013 GFR CALC 6659791 GFR NON-AA >60 ML/MIN 04/23/2013 TSH 4063372 TSH 4.204 uIU/ML 04/23/2013 CBC 3472960 WBC 6.7 10e9/L 04/23/2013 CBC 1594016 RBC 4.19 10e12/L 04/23/2013 CBC 5267274 HGB 13.2 g/dL 04/23/2013 CBC 4476828 HCT DET 39.2 % 04/23/2013 CBC 6048945 MCV 93.6 fL 04/23/2013 CBC 2391687 MCH 31.5 pg 04/23/2013 CBC 5407683 MCHC 33.7 g/dL 04/23/2013 CBC 3008052 PLT 202 10e9/L 04/23/2013 CBC 6866668 MPV 11.4 fL 04/23/2013 CBC 7055951 YANIRA % 70.5 % 04/23/2013 CBC 8512305 LY % 19.6 % 04/23/2013 CBC 9092471 MON % 8.2 % 04/23/2013 CBC 3960163 EOS % 1.6 % 04/23/2013 CBC 3125784 BASO % 0.1 % 04/23/2013 CBC 2862637 RDW 13.7 % 04/23/2013 CBC 6356348 ABS YANIRA 4.72 10e9/L 04/23/2013 CBC 7521195 ABS LYMPH 1.31 10e9/L 04/23/2013 CBC 3068721 ABS MONO 0.55 10e9/L 04/23/2013 CBC 2284616 ABS EOS 0.11 10e9/L 04/23/2013 CBC 1390879 ABS BASO 0.01 10e9/L 04/23/2013 CBC 2112824 RDW-SD 45.7 fL 04/23/2013 PT/MC 7466998 PRO TIME 13.4 SEC 12/17/2012 PT/MC 2021050 INR MCMC 1.0 12/17/2012 PT/MC 9299805 PRO TIME 16.6 SEC 12/14/2012 PT/MC 5471290 INR MCMC 1.4 12/14/2012 PT/MC 8208948 PRO TIME 27.2 SEC 12/11/2012 PT/MC 3853824 INR MCMC 2.6 12/11/2012 DIGOXIN 6841109 DIGOXIN 2.1 NG/ML 03/08/2012 GFR CALC 8257473 GFR AA >60 ML/MIN 03/08/2012 GFR CALC 7242850 GFR NON-AA >60 ML/MIN 03/08/2012 CHEM 14 20280112 AST 16 U/L 03/08/2012 CHEM 14 20280112 ALT 14 IU/L 03/08/2012 CHEM 14 4125044 BUN 10 MG/DL 03/08/2012 CHEM 14 20280112 ALBUMIN 4.2 GM/DL 03/08/2012 CHEM 14 20280112 CHLORIDE 100 MMOL/L 03/08/2012 CHEM 14 4742002 BILI TOT 0.5 MG/DL 03/08/2012 CHEM 14 20280112 ALK PHOS 59 U/L 03/08/2012 CHEM 14 20280112 SODIUM 136 MMOL/L 03/08/2012 CHEM 14 4330414 CREATININE 0.65 MG/DL 03/08/2012 CHEM 14 7924579 CALCIUM 9.4 MG/DL 03/08/2012 CHEM 14 3945681 POTASSIUM 3.9 MMOL/L 03/08/2012 CHEM 14 9174065 PROT TOT 6.7 GM/DL 03/08/2012 CHEM 14 9454845 GLUCOSE 90 MG/DL 03/08/2012 CHEM 14 6642835 BICARB 30 MMOL/L 03/08/2012 CHEM 14 7150623 ANION GAP 6 MEQ/L 03/08/2012 CHEM 14 0884156 AST 16 U/L 11/23/2011 CHEM 14 0005692 ALT 14 IU/L 11/23/2011 CHEM 14 9958886 BUN 11 MG/DL 11/23/2011 CHEM 14 7955291 ALBUMIN 4.1 GM/DL 11/23/2011 CHEM 14 1551106 CHLORIDE 100 MMOL/L 11/23/2011 CHEM 14 1200827 BILI TOT 0.5 MG/DL 11/23/2011 CHEM 14 5159946 ALK PHOS 50 U/L 11/23/2011 CHEM 14 9927290 SODIUM 135 MMOL/L 11/23/2011 CHEM 14 5725543 CREATININE 0.57 MG/DL 11/23/2011 CHEM 14 4662189 CALCIUM 9.1 MG/DL 11/23/2011 CHEM 14 1439885 POTASSIUM 4.5 MMOL/L 11/23/2011 CHEM 14 5930017 PROT TOT 6.5 GM/DL 11/23/2011 CHEM 14 4601785 GLUCOSE 89 MG/DL 11/23/2011 CHEM 14 6134013 BICARB 28 MMOL/L 11/23/2011 CHEM 14 3479884 ANION GAP 7 MEQ/L 11/23/2011 GFR CALC 1540756 GFR AA >60 ML/MIN 11/23/2011 GFR CALC 2335577 GFR NON-AA >60 ML/MIN 11/23/2011 CBC 3413308 WBC 5.1 10e9/L 11/23/2011 CBC 2084372 RBC 4.06 10e12/L 11/23/2011 CBC 0480115 HGB 12.5 g/dL 11/23/2011 CBC 0722337 HCT DET 37.3 % 11/23/2011 CBC 9369139 MCV 91.9 fL 11/23/2011 CBC 7451965 MCH 30.8 pg 11/23/2011 CBC 0399393 MCHC 33.5 g/dL 11/23/2011 CBC 3131974 PLT 222 10e9/L 11/23/2011 CBC 9996769 MPV 10.8 fL 11/23/2011 CBC 1832592 YANIRA % 64.2 % 11/23/2011 CBC 3050137 LY % 22.3 % 11/23/2011 CBC 8122797 MON % 11.3 % 11/23/2011 CBC 2335647 EOS % 1.8 % 11/23/2011 CBC 7517126 BASO % 0.4 % 11/23/2011 CBC 1774041 RDW 13.6 % 11/23/2011 CBC 5642974 ABS YANIRA 3.27 10e9/L 11/23/2011 CBC 1839397 ABS LYMPH 1.14 10e9/L 11/23/2011 CBC 4911816 ABS MONO 0.58 10e9/L 11/23/2011 CBC 6817034 ABS EOS 0.09 10e9/L 11/23/2011 CBC 3967278 ABS BASO 0.02 10e9/L 11/23/2011 CBC 4492470 RDW-SD 44.5 fL 11/23/2011 UA 07573 Specific [place] 1.005 03/04/2011 UA 73792 PH 6 03/04/2011 UA 44211 GLUCOSE N 03/04/2011 UA 43086 Protein N 03/04/2011 UA 25211 Blood ++ 03/04/2011 UA 09050 Bilirubin N 03/04/2011 UA 15175 Ketones N 03/04/2011 UA 92233 Urobilinogen N 03/04/2011 UA 87896 Nitrite N 03/04/2011 UA 44997 Leukocytes N 03/04/2011 URINALYSIS NONAUTO W/O SCOPE 85739 Specific [place] 1.010 DateTime(Free Text in Aprima) URINALYSIS NONAUTO W/O SCOPE 61702 PH 6.5 DateTime(Free Text in Apr[employer]) URINALYSIS NONAUTO W/O SCOPE 14004 GLUCOSE neg DateTime(Free Text in [employer]) URINALYSIS NONAUTO W/O SCOPE 53331 Protein neg DateTime(Free Text in [employer]) URINALYSIS NONAUTO W/O SCOPE 23478 Blood 3+ DateTime(Free Text in [employer]) URINALYSIS NONAUTO W/O SCOPE 22562 Bilirubin neg DateTime(Free Text in [employer]) URINALYSIS NONAUTO W/O SCOPE 86393 Ketones neg DateTime(Free Text in [employer]) URINALYSIS NONAUTO W/O SCOPE 11114 Urobilinogen neg DateTime(Free Text in [employer]) URINALYSIS NONAUTO W/O SCOPE 98843 Nitrite neg DateTime(Free Text in [employer]) URINALYSIS NONAUTO W/O SCOPE 20353 Leukocytes neg DateTime(Free Text in Apr[employer]) URINALYSIS NONAUTO W/O SCOPE 82659 Specific [place] 1.010 DateTime(Free Text in Apr[employer]) URINALYSIS NONAUTO W/O SCOPE 91250 PH 5 DateTime(Free Text in Apr[employer]) URINALYSIS NONAUTO W/O SCOPE 54918 GLUCOSE neg DateTime(Free Text in Apr[employer]) URINALYSIS NONAUTO W/O SCOPE 91106 Protein neg DateTime(Free Text in Apr[employer]) URINALYSIS NONAUTO W/O SCOPE 66688 Blood 3+ DateTime(Free Text in Apr[employer]) URINALYSIS NONAUTO W/O SCOPE 85035 Bilirubin neg DateTime(Free Text in Apr[employer]) URINALYSIS NONAUTO W/O SCOPE 24345 Ketones neg DateTime(Free Text in Apr[employer]) URINALYSIS NONAUTO W/O SCOPE 07812 Urobilinogen neg DateTime(Free Text in Apr[employer]) URINALYSIS NONAUTO W/O SCOPE 93756 Nitrite neg DateTime(Free Text in Apr[employer]) URINALYSIS NONAUTO W/O SCOPE 32026 Leukocytes neg DateTime(Free Text in Apr[employer]) URINALYSIS NONAUTO W/O SCOPE 89148 Specific [place] 1.005 DateTime(Free Text in Apr[employer]) URINALYSIS NONAUTO W/O SCOPE 62310 PH 8.5 DateTime(Free Text in Apr[employer]) URINALYSIS NONAUTO W/O SCOPE 35676 GLUCOSE neg DateTime(Free Text in Apr[employer]) URINALYSIS NONAUTO W/O SCOPE 64032 Protein neg DateTime(Free Text in Apr[employer]) URINALYSIS NONAUTO W/O SCOPE 82890 Blood 1+ DateTime(Free Text in Apr[employer]) URINALYSIS NONAUTO W/O SCOPE 73333 Bilirubin neg DateTime(Free Text in Apr[employer]) URINALYSIS NONAUTO W/O SCOPE 91300 Ketones neg DateTime(Free Text in Apr[employer]) URINALYSIS NONAUTO W/O SCOPE 53738 Urobilinogen neg DateTime(Free Text in Apr[employer]) URINALYSIS NONAUTO W/O SCOPE 45520 Nitrite neg DateTime(Free Text in Apr[employer]) URINALYSIS NONAUTO W/O SCOPE 70635 Leukocytes neg DateTime(Free Text in Apr[employer]) URINALYSIS NONAUTO W/O SCOPE 32557 Specific [place] 1.005 DateTime(Free Text in Apr[employer]) URINALYSIS NONAUTO W/O SCOPE 22871 PH 7 DateTime(Free Text in Apr[employer]) URINALYSIS NONAUTO W/O SCOPE 50761 GLUCOSE neg DateTime(Free Text in Apr[employer]) URINALYSIS NONAUTO W/O SCOPE 33576 Protein neg DateTime(Free Text in Apr[employer]) URINALYSIS NONAUTO W/O SCOPE 27322 Blood large DateTime(Free Text in Apr[employer]) URINALYSIS NONAUTO W/O SCOPE 09436 Bilirubin neg DateTime(Free Text in Apr[employer]) URINALYSIS NONAUTO W/O SCOPE 43916 Ketones neg DateTime(Free Text in Apr[employer]) URINALYSIS NONAUTO W/O SCOPE 11046 Urobilinogen 0.2 DateTime(Free Text in Apr[employer]) URINALYSIS NONAUTO W/O SCOPE 60109 Nitrite neg DateTime(Free Text in Apr[employer]) URINALYSIS NONAUTO W/O SCOPE 18190 Leukocytes neg DateTime(Free Text in Apr[employer]) URINALYSIS NONAUTO W/O SCOPE 87167 Specific [place] 1.005 DateTime(Free Text in Apr[employer]) URINALYSIS NONAUTO W/O SCOPE 62715 PH 7.5 DateTime(Free Text in Apr[employer]) URINALYSIS NONAUTO W/O SCOPE 69326 GLUCOSE DateTime(Free Text in Apr[employer]) URINALYSIS NONAUTO W/O SCOPE 95750 Protein trace DateTime(Free Text in Apr[employer]) URINALYSIS NONAUTO W/O SCOPE 64550 Blood 4+ DateTime(Free Text in [employer]) URINALYSIS NONAUTO W/O SCOPE 64967 Bilirubin DateTime(Free Text in Apr[employer]) URINALYSIS NONAUTO W/O SCOPE 81402 Ketones DateTime(Free Text in Apr[employer]) URINALYSIS NONAUTO W/O SCOPE 47986 Urobilinogen DateTime(Free Text in Apr[employer]) URINALYSIS NONAUTO W/O SCOPE 99181 Nitrite DateTime(Free Text in ) URINALYSIS NONAUTO W/O SCOPE 50345 Leukocytes trace DateTime(Free Text in ) Review [...] 08/14/2018 great toes Full Exam - General 1997 Constitutional general appearance Development: well developed 07/26/2018 [...] FLU VACC PRSV FREE INC ANTIG CPT-4: 96329 03/27/2017 PPPS, SUBSEQ VISIT CPT- 4: G0439 01/23/2017 URINALYSIS NONAUTO W/O SCOPE CPT-4: 38932 05/17/2016 ADMIN INFLUENZA VIRUS VAC CPT-4: G0008 03/24/2016 FLU VACC PRSV FREE INC ANTIG CPT-4: 44155 03/24/2016 ADMIN PNEUMOCOCCAL VACCINE SNOMED CT: 14828479 CPT-4: G0009 05/13/2015 PNEUMOCOCCAL VACC [address]: 55891088 CPT-4: 24887 05/13/2015 Pneumococcal Polysaccharide Vaccine, 23-Valent, Ad Assigned to/Mela Bledsoe CPT-4: 43940Kocdnyk 07/11/2014 ADMIN PNEUMOCOCCAL VACCINE SNOMED CT: 32983296 CPT-4: G0009 07/11/2014 URINALYSIS NONAUTO W/O SCOPE CPT-4: 15686 05/14/2014 URINALYSIS NONAUTO W/O SCOPE CPT-4: 97588 05/06/2014 URINALYSIS NONAUTO W/O SCOPE CPT-4: 78022 04/29/2014 ADMIN INFLUENZA VIRUS VAC CPT-4: G0008 03/20/2014 FLU VAC NO PRSV 4 SCOTT 3 YRS+ Assigned to/Mela Bledsoe CPT-4: 95337Tfmxngr 03/20/2014 URINALYSIS NONAUTO W/O SCOPE CPT-4: 95009 07/29/2013 URINALYSIS NONAUTO W/O SCOPE CPT-4: 85104 07/01/2013 URINALYSIS NONAUTO W/O SCOPE CPT-4: 80466 06/20/2013 ROUTINE VENIPUNCTURE CPT- 4: 48099 05/15/2013 ROUTINE VENIPUNCTURE CPT- 4: 18528 04/23/2013 ADMIN INFLUENZA VIRUS VAC CPT-4: G0008 04/23/2013 FLULAVAL VACC, 3 YRS & >, IM CPT-4: Q2036 04/23/2013 ROUTINE VENIPUNCTURE CPT- 4: 80215 12/17/2012 ROUTINE VENIPUNCTURE CPT- 4: 85021 12/14/2012 ROUTINE VENIPUNCTURE CPT- 4: 81351 12/11/2012 PRESCRIP TRANSMIT VIA ERX SY CPT-4: G8553 12/11/2012 PRESCRIP TRANSMIT VIA ERX SY CPT-4: G8553 10/30/2012 URINALYSIS NONAUTO W/O SCOPE CPT-4: 60840 09/13/2012 ADMIN INFLUENZA VIRUS VAC CPT-4: G0008 04/18/2012 FLULAVAL VACC, 3 YRS & >, IM CPT-4: Q2036 04/18/2012 URINALYSIS NONAUTO W/O SCOPE CPT-4: 75289 03/13/2012 ROUTINE VENIPUNCTURE CPT- 4: 83869 03/08/2012 URINALYSIS NONAUTO W/O SCOPE CPT-4: 10911 02/13/2012 PRESCRIP TRANSMIT VIA ERX SY CPT-4: G8553 02/13/2012 ROCEPHIN, PER 250 MG CPT- 4: J0696 11/23/2011 ROUTINE VENIPUNCTURE CPT- 4: 15656 11/23/2011 URINALYSIS NONAUTO W/O SCOPE CPT-4: 69971 11/23/2011 PRESCRIP TRANSMIT VIA ERX SY CPT-4: G8553 11/23/2011 REMOVE IMPACTED EAR WAX UNI CPT-4: 08829 10/17/2011 PRESCRIP TRANSMIT VIA ERX SY CPT-4: G8553 10/03/2011 PRESCRIP TRANSMIT VIA ERX SY CPT-4: G8553 08/08/2011 URINALYSIS NONAUTO W/O SCOPE CPT-4: 90674 03/15/2011 URINALYSIS NONAUTO W/O SCOPE CPT-4: 64047 03/04/2011 THER/PROPH/DIAG INJ SC/IM CPT-4: 09548 03/04/2011 ROCEPHIN, PER 250 MG CPT- 4: J0696 03/04/2011 Vital Signs Date Vital 10/09/2018 Blood Pressure 1: 126/60 Code: 8480-6 BMI: 19.9 Code: 68071-6 Heart Rate 1: 66 bpm Height: 5' SpO2: 96% Weight: 102 lbs 09/12/2018 Blood Pressure 1: 156/72 Code: 8480-6 BMI: 19.9 Code: 04956-3 Heart Rate 1: 68 bpm Height: 5' Temperature: 36.6 (C) / 97.8 (F) Weight: 102 lbs 08/14/2018 Blood Pressure 1: 136/68 Code: 8480-6 BMI: 21.1 Code: 48909-3 Heart Rate 1: 92 bpm Height: 5' Weight: 108 lbs 07/26/2018 Blood Pressure 1: 128/76 Code: 8480-6 BMI: 21.1 Code: 53664-6 Heart Rate 1: 88 bpm Height: 5' Weight: 108 lbs 06/04/2018 Blood Pressure 1: 124/72 Code: 8480-6 BMI: 21.3 Code: 51847-7 Heart Rate 1: 98 bpm Height: 5' Weight: 109 lbs 01/31/2018 Blood Pressure 1: 116/68 Code: 8480-6 BMI: 21.1 Code: 91111-5 Heart Rate 1: 89 bpm Height: 5' SpO2: 98% Weight: 108 lbs 01/17/2018 Blood Pressure 1: 134/74 Code: 8480-6 BMI: 21.3 Code: 22356-1 Heart Rate 1: 74 bpm Height: 5' SpO2: 96% Waist Measure (cm): 71 cm Weight: 109 lbs 12/14/2017 Blood Pressure 1: 150/78 Code: 8480-6 BMI: 21.5 Code: 53044-6 Heart Rate 1: 77 bpm Height: 5' SpO2: 98% Temperature: 36.7 (C) / 98.1 (F) Weight: 110 lbs 12/07/2017 Blood Pressure 1: 134/70 Code: 8480-6 Heart Rate 1: 76 bpm Height: SpO2: 98% Temperature: 36.8 (C) / 98.2 (F) Weight: 11/14/2017 Blood Pressure 1: 152/84 Code: 8480-6 BMI: 21.9 Code: 44688-6 Heart Rate 1: 95 bpm Height: 5' SpO2: 93% Weight: 112 lbs 03/27/2017 Blood Pressure 1: 122/70 Code: 8480-6 BMI: 21.3 Code: 63540-7 Heart Rate 1: 75 bpm Height: 5' Weight: 109 lbs 01/23/2017 BMI: 21.5 Code: 10339-7 Height: 5' Weight: 110 lbs 01/19/2017 Blood Pressure 1: 112/60 Code: 8480-6 BMI: 21.5 Code: 80267-7 Heart Rate 1: 54 bpm Height: 5' SpO2: 97% Weight: 110 lbs 11/29/2016 Blood Pressure 1: 126/68 Code: 8480-6 Height: 5' Weight: 11/23/2016 Blood Pressure 1: 130/72 Code: 8480-6 BMI: 21.9 Code: 12353-0 Heart Rate 1: 48 bpm Height: 5' SpO2: 97% Temperature: 36.7 (C) / 98.0 (F) Weight: 112 lbs 11/21/2016 Blood Pressure 1: 134/76 Code: 8480-6 BMI: 21.9 Code: 81032-2 Heart Rate 1: 41 bpm Height: 5' SpO2: 94% Temperature: 36.9 (C) / 98.4 (F) Weight: 112 lbs 11/08/2016 Blood Pressure 1: 126/74 Code: 8480-6 Heart Rate 1: 82 bpm Height: 5' SpO2: 94% Weight: 11/02/2016 Blood Pressure 1: 112/66 Code: 8480-6 Heart Rate 1: 72 bpm Height: 5' SpO2: 95% Weight: 10/27/2016 Blood Pressure 1: 130/64 Code: 8480-6 BMI: 21.7 Code: 34529-4 Heart Rate 1: 81 bpm Height: 5' SpO2: 96% Weight: 111 lbs 08/31/2016 Blood Pressure 1: 132/72 Code: 8480-6 BMI: 22.5 Code: 40736-1 Heart Rate 1: 66 bpm Height: 5' Weight: 115 lbs 07/27/2016 Blood Pressure 1: 166/74 Code: 8480-6 BMI: 23.2 Code: 67424-7 Heart Rate 1: 48 bpm Height: 5' SpO2: 90% Temperature: 36.8 (C) / 98.2 (F) Weight: 119 lbs 06/23/2016 Blood Pressure 1: 128/70 Code: 8480-6 BMI: 22.3 Code: 73335-9 Heart Rate 1: 75 bpm Height: 5' SpO2: 97% Weight: 114 lbs 06/09/2016 BMI: 22.7 Code: 76163-0 Heart Rate 1: 73 bpm Height: 5' SpO2: 97% Weight: 116 lbs 05/25/2016 Blood Pressure 1: 138/62 Code: 8480-6 BMI: 22.8 Code: 32245-9 Heart Rate 1: 76 bpm Height: 5' Weight: 117 lbs 05/17/2016 Blood Pressure 1: 116/70 Code: 8480-6 BMI: 22.8 Code: 27034-4 Heart Rate 1: 74 bpm Height: 5' SpO2: 94% Weight: 117 lbs 03/24/2016 Blood Pressure 1: 154/78 Code: 8480-6 BMI: 22.5 Code: 61673-2 Heart Rate 1: 78 bpm Height: 5' SpO2: 97% Weight: 115 lbs 02/02/2016 Blood Pressure 1: 132/70 Code: 8480-6 BMI: 22.3 Code: 95421-5 Heart Rate 1: 74 bpm Height: 5' SpO2: 94% Weight: 114 lbs 2016 Blood Pressure 1: 120/62 Code: 8480-6 BMI: 22.0 Code: 09373-1 Heart Rate 1: 68 bpm Height: 5' Weight: 112 lbs 8 oz 12/21/2015 Blood Pressure 1: 122/82 Code: 8480-6 BMI: 21.9 Code: 24030-9 Heart Rate 1: 83 bpm Height: 5' SpO2: 93% Temperature: 37.1 (C) / 98.7 (F) Weight: 112 lbs 11/03/2015 Blood Pressure 1: 122/72 Code: 8480-6 BMI: 22.4 Code: 93125-3 Heart Rate 1: 62 bpm Height: 5' Weight: 114 lbs 8 oz 10/19/2015 Blood Pressure 1: 138/62 Code: 8480-6 BMI: 21.1 Code: 04035-8 Heart Rate 1: 79 bpm Height: 5' Weight: 108 lbs 10/13/2015 Blood Pressure 1: 120/62 Code: 8480-6 BMI: 21.0 Code: 36126-6 Heart Rate 1: 76 bpm Height: 5' SpO2: 98% Weight: 108 lbs 09/29/2015 Blood Pressure 1: 130/70 Code: 8480-6 BMI: 20.2 Code: 14065-2 Heart Rate 1: 72 bpm Height: 5' Weight: 104 lbs 09/15/2015 Blood Pressure 1: 128/78 Code: 8480-6 BMI: 19.9 Code: 97840-2 Heart Rate 1: 72 bpm Height: 5' Weight: 102 lbs 8 oz 09/01/2015 Blood Pressure 1: 128/68 Code: 8480-6 BMI: 19.8 Code: 60363-8 Height: 5' Weight: 102 lbs 05/26/2015 Blood Pressure 1: 140/68 Code: 8480-6 BMI: 19.0 Code: 79905-1 Heart Rate 1: 70 bpm Height: 5' Weight: 98 lbs 05/21/2015 Blood Pressure 1: 140/78 Code: 8480-6 BMI: 19.2 Code: 26691-4 Heart Rate 1: 85 bpm Height: 5' SpO2: 95% Weight: 99 lbs 05/07/2015 Blood Pressure 1: 140/82 Code: 8480-6 BMI: 19.0 Code: 72338-4 Heart Rate 1: 76 bpm Height: 5' Weight: 98 lbs 03/23/2015 Blood Pressure 1: 142/60 Code: 8480-6 BMI: 18.6 Code: 69503-8 Heart Rate 1: 52 bpm Height: 5' Weight: 96 lbs 03/09/2015 Blood Pressure 1: 138/74 Code: 8480-6 BMI: 18.8 Code: 39718-6 Heart Rate 1: 60 bpm Height: 5' Weight: 97 lbs 10/30/2014 Blood Pressure 1: 112/82 Code: 8480-6 BMI: 19.0 Code: 17703-6 Heart Rate 1: 64 bpm Height: 5' Weight: 98 lbs 07/11/2014 Blood Pressure 1: 146/70 Code: 8480-6 BMI: 18.8 Code: 03319-2 Heart Rate 1: 68 bpm Height: 5' Weight: 97 lbs 05/20/2014 Blood Pressure 1: 142/76 Code: 8480-6 BMI: 18.6 Code: 20671-3 Heart Rate 1: 78 bpm Height: 5' Weight: 96 lbs 04/29/2014 Blood Pressure 1: 138/62 Code: 8480-6 BMI: 18.3 Code: 29450-8 Heart Rate 1: 80 bpm Height: 5' Weight: 94 lbs 8 oz 03/20/2014 Blood Pressure 1: 142/68 Code: 8480-6 BMI: 18.6 Code: 21416-8 Heart Rate 1: 96 bpm Height: 5' Weight: 96 lbs 03/05/2014 Blood Pressure 1: 122/72 Code: 8480-6 BMI: 18.8 Code: 47564-5 Heart Rate 1: 82 bpm Height: 5' SpO2: 97% Weight: 97 lbs 01/29/2014 Blood Pressure 1: 124/78 Code: 8480-6 BMI: 18.8 Code: 46590-3 Heart Rate 1: 60 bpm Height: 5' Weight: 97 lbs 01/14/2014 Blood Pressure 1: 120/58 Code: 8480-6 BMI: 19.2 Code: 91606-5 Heart Rate 1: 56 bpm Height: 5' Temperature: 36.9 (C) / 98.4 (F) Weight: 99 lbs 12/25/2013 Blood Pressure 1: 118/78 Code: 8480-6 BMI: 19.2 Code: 22601-7 Heart Rate 1: 68 bpm Height: 5' Weight: 99 lbs 11/27/2013 Blood Pressure 1: 102/68 Code: 8480-6 BMI: 19.4 Code: 36400-8 Heart Rate 1: 56 bpm Height: 5' Weight: 100 lbs 09/12/2013 Blood Pressure 1: 142/62 Code: 8480-6 BMI: 19.7 Code: 05674-9 Heart Rate 1: 72 bpm Height: 5'1" Weight: 104 lbs 08/15/2013 Blood Pressure 1: 152/92 Code: 8480-6 Heart Rate 1: 96 bpm Weight: 102 lbs 08/01/2013 Blood Pressure 1: 122/68 Code: 8480-6 BMI: 19.1 Code: 73459-0 Heart Rate 1: 68 bpm Height: 5'1" Weight: 101 lbs 07/01/2013 Blood Pressure 1: 130/72 Code: 8480-6 BMI: 19.5 Code: 88124-5 Heart Rate 1: 80 bpm Height: 5'1" Temperature: 36.1 (C) / 97.0 (F) Weight: 103 lbs 05/29/2013 Blood Pressure 1: 126/72 Code: 8480-6 BMI: 19.3 Code: 31799-9 Heart Rate 1: 80 bpm Height: 5'1" Weight: 102 lbs 05/15/2013 Blood Pressure 1: 156/74 Code: 8480-6 BMI: 19.3 Code: 60243-4 Heart Rate 1: 88 bpm Height: 5'1" Weight: 102 lbs 04/23/2013 Blood Pressure 1: 140/82 Code: 8480-6 BMI: 19.3 Code: 43860-3 Heart Rate 1: 72 bpm Height: 5'1" Weight: 102 lbs 03/21/2013 Blood Pressure 1: 142/74 Code: 8480-6 Heart Rate 1: 92 bpm Weight: 103 lbs 01/16/2013 Blood Pressure 1: 120/56 Code: 8480-6 BMI: 20.0 Code: 46335-8 Heart Rate 1: 72 bpm Height: 5'1" Weight: 106 lbs 12/19/2012 Blood Pressure 1: 118/66 Code: 8480-6 Heart Rate 1: 84 bpm Weight: 12/10/2012 Blood Pressure 1: 132/62 Code: 8480-6 Heart Rate 1: 64 bpm Weight: 103 lbs 10/30/2012 Blood Pressure 1: 122/66 Code: 8480-6 BMI: 19.9 Code: 97879-9 Heart Rate 1: 61 bpm Height: 5'1" [...] 1: 118/72 Code: 8480-6 BMI: 21.0 Code: 80024-3 Heart Rate 1: 66 bpm Height: 5'1" Respiratory Rate: 16 bpm Weight: 111 lbs 2012 Blood Pressure 1: 122/62 Code: 8480-6 Heart Rate 1: 68 bpm Weight: 110 lbs 12/01/2011 Blood Pressure 1: 150/60 Code: 8480-6 BMI: 20.8 Code: 52002-7 Heart Rate 1: 60 bpm Height: 5'1" Respiratory Rate: 16 bpm Weight: 110 lbs 11/23/2011 Blood Pressure 1: 170/68 Code: 8480-6 BMI: 21.1 Code: 04445-7 Heart Rate 1: 64 bpm Height: 5'1" Temperature: 36.3 (C) / 97.3 (F) Weight: 111 lbs 8 oz 10/17/2011 Blood Pressure 1: 148/62 Code: 8480-6 Heart Rate 1: 74 bpm 10/03/2011 Blood Pressure 1: 102/48 Code: 8480-6 BMI: 21.4 Code: 07669-8 Heart Rate 1: 76 bpm Height: 5'1" Respiratory Rate: 16 bpm Weight: 113 lbs 08/08/2011 Blood Pressure 1: 128/60 Code: 8480-6 Heart Rate 1: 80 bpm Respiratory Rate: 16 bpm Weight: 113 lbs 05/09/2011 Blood Pressure 1: 130/62 Code: 8480-6 BMI: 20.7 Code: 11772-2 Heart Rate 1: 64 bpm Height: 5'1" Respiratory Rate: 16 bpm Weight: 109 lbs 8 oz 03/29/2011 Blood Pressure 1: 120/62 Code: 8480-6 BMI: 20.2 Code: 36990-3 Heart Rate 1: 66 bpm Height: 5'1" Respiratory Rate: 12 bpm Weight: 107 lbs 03/15/2011 Blood Pressure 1: 120/64 Code: 8480-6 BMI: 19.8 Code: 90274-9 Heart Rate 1: 76 bpm Height: 5'1" [...] contacts 03/20/2014 sat next to neighbor in [place] who had tonsillitis sore throat Pertinent Findings [...] data Encounters Encounter Performer Location Codes Date ([id number]) 96557 EST. PATIENT, LEVEL III Diagnosis: Raynaud's syndrome without gangrene[ICD10: I73.00] Diagnosis: Pain in left hand[ICD10: M79.642] Diagnosis: Pain in right hand[ICD10: M79.641] Karma Bahena MD, [facility] CPT- 4: 81175 10/09/2018 58180 EST. PATIENT, LEVEL III Diagnosis: Cough[ICD10: R05] Diagnosis: Acute laryngopharyngitis[ICD10: J06.0] Diagnosis: Other allergic rhinitis[ICD10: J30.89] Diagnosis: Raynaud's syndrome without gangrene[ICD10: I73.00] Katharine Bahena MD, [facility] CPT-4: 63109 09/12/2018 ([id number]) 52744 EST. PATIENT, LEVEL IV Diagnosis: Raynaud's syndrome without gangrene[ICD10: I73.00] Diagnosis: Pain in right toe(s)[ICD10: M79.674] Diagnosis: Chronic atrial fibrillation[ICD10: I48.2] Karma Bahena MD, [facility] CPT-4: 31685 08/14/2018 ([id number]) 16657 EST. PATIENT, LEVEL IV Diagnosis: Chronic atrial fibrillation[ICD10: I48.2] Diagnosis: Sebaceous cyst[ICD10: L72.3] Diagnosis: Raynaud's syndrome without gangrene[ICD10: I73.00] Karma Bahena MD, [facility] CPT-4: 21362 07/26/2018 ([id number]) 98005 EST. PATIENT, LEVEL IV Diagnosis: Essential (primary) hypertension[ICD10: I10] Diagnosis: Atrophy of thyroid (acquired)[ICD10: E03.4] Diagnosis: Gastro-esophageal reflux disease without esophagitis[ICD10: K21.9] Karma Bahena MD, [facility] CPT-4: 64169 06/04/2018 ([id number]) 86330 EST. PATIENT, LEVEL IV Diagnosis: Essential (primary) hypertension[ICD10: I10] Diagnosis: Atrophy of thyroid (acquired)[ICD10: E03.4] Diagnosis: Other manager long term care (current) drug therapy[ICD10: Z79.899] Karma Bahena MD, [facility] CPT-4: 01301 01/31/2018 ([id number]) 78903 EST. PATIENT, LEVEL IV Diagnosis: Essential (primary) hypertension[ICD10: I10] Diagnosis: Chronic atrial fibrillation[ICD10: I48.2] Diagnosis: Allergic rhinitis due to pollen[ICD10: J30.1] Diagnosis: Cough[ICD10: R05] Karma Bahena MD, [facility] CPT-4: 44271 12/14/2017 47367 EST. PATIENT, LEVEL IV Diagnosis: Other allergic rhinitis[ICD10: J30.89] Katharine Bahena MD, [facility] CPT- 4: 51180 12/07/2017 ([id number]) 39121 EST. PATIENT, LEVEL IV Diagnosis: Essential (primary) hypertension[ICD10: I10] Diagnosis: Chronic atrial fibrillation[ICD10: I48.2] Diagnosis: Atrophy of thyroid (acquired)[ICD10: E03.4] Karma Bahena MD, [facility] CPT-4: 94926 11/14/2017 ([id number]) 12492 EST. PATIENT, LEVEL IV Diagnosis: Essential (primary) hypertension[ICD10: I10] Diagnosis: Localized edema[ICD10: R60.0] Diagnosis: Encounter for immunization[ICD10: Z23] Diagnosis: Age-related osteoporosis without current pathological fracture[ICD10: M81.0] Karma Bahena MD, [facility] CPT-4: 13137 03/27/2017 ([id number]) 35284 EST. PATIENT, LEVEL IV Diagnosis: Essential (primary) hypertension[ICD10: I10] Diagnosis: Chronic atrial fibrillation[ICD10: I48.2] Diagnosis: Dysphonia[ICD10: R49.0] Karma Bahena MD, [facility] CPT-4: 73342 01/19/2017 ([id number]) Miscellaneous no charge Diagnosis: Cough[ICD10: R05] Diagnosis: Acute upper respiratory infection, unspecified[ICD10: J06.9] Laura Bahena MD, [facility] CPT-4: 92696 11/29/2016 32262 EST. PATIENT, LEVEL III Diagnosis: Cough[ICD10: R05] Diagnosis: Acute laryngopharyngitis[ICD10: J06.0] Katharine Bahena MD, [facility] CPT- 4: 51676 11/23/2016 ([id number]) 94078 EST. PATIENT, LEVEL III Diagnosis: Acute laryngopharyngitis[ICD10: J06.0] Laura Bahena MD, [facility] CPT-4: 66694 11/21/2016 ([id number]) Miscellaneous no charge Diagnosis: Laceration without foreign body of right forearm, subsequent encounter[ICD10: S51.811D] Karma Bahena MD, [facility] CPT-4: 89473 11/17/2016 ([id number]) Miscellaneous no charge Diagnosis: Laceration without foreign body of right forearm, subsequent encounter[ICD10: S51.811D] Karma Bahena MD, [facility] CPT-4: 46073 11/14/2016 ([id number]) Miscellaneous no charge Diagnosis: Laceration without foreign body of right forearm, subsequent encounter[ICD10: S51.811D] Karma Bahena MD, [facility] CPT-4: 13019 11/11/2016 ([id number]) Miscellaneous no charge Diagnosis: Laceration without foreign body of right forearm, subsequent encounter[ICD10: S51.811D] Karma Bahena MD, [facility] CPT-4: 06102 11/10/2016 ([id number]) 08522 EST. PATIENT, LEVEL II Diagnosis: Laceration without foreign body of right forearm, subsequent encounter[ICD10: S51.811D] Karma Bahena MD, [facility] CPT-4: 93545 11/08/2016 ([id number]) 02673 EST. PATIENT, LEVEL IV Diagnosis: Atrophy of thyroid (acquired)[ICD10: E03.4] Diagnosis: Chronic atrial fibrillation[ICD10: I48.2] Diagnosis: Laceration without foreign body of right forearm, subsequent encounter[ICD10: S51.811D] Karma Bahena MD, [facility] CPT-4: 24739 11/02/2016 ([id number]) 19119 EST. PATIENT, LEVEL III Diagnosis: Laceration without foreign body of right forearm, initial encounter[ICD10: S51.811A] Laura Bahena MD, [facility] CPT-4: 98322 10/27/2016 ([id number]) 07418 EST. PATIENT, LEVEL IV Diagnosis: Essential (primary) hypertension[ICD10: I10] Diagnosis: Chronic atrial fibrillation[ICD10: I48.2] Karma Bahena MD, [facility] CPT-4: 68539 08/31/2016 ([id number]) 74556 EST. PATIENT, LEVEL IV Diagnosis: Localized edema[ICD10: R60.0] Diagnosis: Essential (primary) hypertension[ICD10: I10] Diagnosis: Abdominal distension (gaseous)[ICD10: R14.0] Karma Bahena MD, [facility] CPT-4: 68496 07/27/2016 ([id number]) 20927 EST. PATIENT, LEVEL IV Diagnosis: Essential (primary) hypertension[ICD10: I10] Diagnosis: Chronic atrial fibrillation[ICD10: I48.2] Diagnosis: Localized edema[ICD10: R60.0] Karma Bahena MD, [facility] CPT-4: 98838 06/23/2016 ([id number]) 22176 EST. PATIENT, LEVEL III Diagnosis: Localized edema[ICD10: R60.0] Karma Bahena MD, [facility] CPT-4: 59428 06/09/2016 ([id number]) 42417 EST. PATIENT, LEVEL III Diagnosis: Irritable bowel syndrome without diarrhea[ICD10: K58.9] Diagnosis: Pruritus ani[ICD10: L29.0] Karma Bahena MD, [facility] CPT-4: 40216 05/25/2016 ([id number]) 73876 EST. PATIENT, LEVEL III Diagnosis: Abdominal distension (gaseous)[ICD10: R14.0] Diagnosis: Encounter for screening mammogram for malignant neoplasm of breast[ICD10: Z12.31] Karma Bahena MD, [facility] CPT-4: 12621 05/17/2016 ([id number]) 05965 EST. PATIENT, LEVEL IV Diagnosis: Essential (primary) hypertension[ICD10: I10] Diagnosis: First degree hemorrhoids[ICD10: K64.0] Diagnosis: Encounter for immunization[ICD10: Z23] Karma Bahena MD, [facility] CPT-4: 43324 03/24/2016 ([id number]) 13081 EST. PATIENT, LEVEL III Diagnosis: Epidermal cyst[ICD10: L72.0] Diagnosis: Essential (primary) hypertension[ICD10: I10] Diagnosis: Chronic atrial fibrillation[ICD10: I48.2] Diagnosis: Other care home (current) drug therapy[ICD10: Z79.899] Karma Bahena MD, [facility] CPT-4: 18626 02/02/2016 ([id number]) 79543 EST. PATIENT, LEVEL III Diagnosis: Acute anal fissure[ICD10: K60.0] Karma Bahena MD [facility] CPT-4: 32148 2016 ([id number]) 38119 EST. PATIENT, LEVEL III Diagnosis: Allergic rhinitis due to pollen[ICD10: J30.1] Diagnosis: Acute upper respiratory infection, unspecified[ICD10: J06.9] Laura Bahena MD, [facility] CPT-4: 48379 12/21/2015 ([id number]) 29047 EST. PATIENT, LEVEL III Diagnosis: Essential (primary) hypertension[ICD10: I10] Diagnosis: Chronic atrial fibrillation[ICD10: I48.2] Karma Bahena MD, [facility] CPT-4: 33731 11/03/2015 ([id number]) Miscellaneous no charge Diagnosis: Impacted cerumen, right ear[ICD10: H61.21] Katharine Bahena MD, [facility] CPT-4: 14365 10/19/2015 92390 EST. PATIENT, LEVEL IV Diagnosis: Impacted cerumen, right ear[ICD10: H61.21] Diagnosis: Other allergic rhinitis[ICD10: J30.89] Katharine Bahena MD, [facility] CPT- 4: 49375 10/13/2015 ([id number]) 13926 EST. PATIENT, LEVEL IV Diagnosis: Essential (primary) hypertension[ICD10: I10] Diagnosis: Chronic atrial fibrillation[ICD10: I48.2] Diagnosis: Urge incontinence[ICD10: N39.41] Diagnosis: Age-related osteoporosis without current pathological fracture[ICD10: M81.0] Karma Bahena MD, [facility] CPT-4: 34447 09/29/2015 ([id number]) 74389 EST. PATIENT, LEVEL IV Diagnosis: Essential (primary) hypertension[ICD10: I10] Diagnosis: Chronic atrial fibrillation[ICD10: I48.2] Diagnosis: Irritable bowel syndrome without diarrhea[ICD10: K58.9] Diagnosis: Unspecified hemorrhoids[ICD10: K64.9] Karma Bahena MD, [facility] CPT-4: 22731 09/15/2015 ([id number]) 96532 EST. 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 PATIENT, LEVEL III Diagnosis: Hematuria, unspecified[ICD10: R31.9] Diagnosis: Other urethritis[ICD10: N34.2] Diagnosis: Other specified noninflammatory disorders of vagina[ICD10: N89.8] Karma Bahena MD, [facility] CPT-4: 71943 05/26/2015 44581 EST. PATIENT, LEVEL IV Diagnosis: Gout, unspecified[ICD10: M10.9] Karma Bahena MD [facility] CPT-4: 05003 05/21/2015 ([id number]) 28400 EST. PATIENT, LEVEL IV Diagnosis: Chronic atrial fibrillation[ICD10: I48.2] Diagnosis: Irritable bowel syndrome without diarrhea[ICD10: K58.9] Diagnosis: Cystocele, unspecified[ICD10: N81.10] Diagnosis: Urge incontinence[ICD10: N39.41] Diagnosis: Fecal smearing[ICD10: R15.1] Diagnosis: Hypothyroidism, unspecified[ICD10: E03.9] Karma Bahena MD, [facility] CPT-4: 82968 05/07/2015 ([id number]) 62547 EST. PATIENT, LEVEL III Diagnosis: Atrial fibrillation[ICD9: 427.31] Diagnosis: Bloating[ICD9: 787.3] Karma Bahena MD [facility] CPT-4: 74175 03/23/2015 ([id number]) 29828 EST. PATIENT, LEVEL IV Diagnosis: Abdominal pain[ICD9: 789.00] Diagnosis: Atrial fibrillation[ICD9: 427.31] Diagnosis: ENCNTR LONG-ANTICOAG USE[ICD9: V58.61] Karma Bahena MD [facility] CPT-4: 92089 03/09/2015 ([id number]) 16741 EST. PATIENT, LEVEL IV Diagnosis: HEMATURIA NOS[ICD9: 599.70] Diagnosis: Atrial fibrillation[ICD9: 427.31] Diagnosis: HYPOTHYROIDISM[ICD9: 244.9] Karma Bahena MD [facility] CPT-4: 43825 10/30/2014 ([id number]) 54210 EST. PATIENT, LEVEL IV Diagnosis: Atrial fibrillation[ICD9: 427.31] Diagnosis: ALLERGIC RHINITIS[ICD9: 477.9] Diagnosis: Need for pneumococcal vaccine[ICD9: V03.82] Diagnosis: Osteoarthritis[ICD9: 715.90] Diagnosis: Osteoporosis[ICD9: 733.00] Karma Bahena MD [facility] CPT-4: 07762 07/11/2014 ([id number]) 55516 EST. PATIENT, LEVEL III Diagnosis: Urge incontinence[ICD9: 788.31] Diagnosis: Dysuria[ICD9: 788.1] Karma Bahena MD [facility] CPT-4: 92219 05/20/2014 ([id number]) 92067 EST. PATIENT, LEVEL IV Diagnosis: Atrial fibrillation[ICD9: 427.31] Diagnosis: Hematuria[ICD9: 599.70] Diagnosis: Dysuria[ICD9: 788.1] Diagnosis: ESSENTIAL HYPERTENSION[ICD9: 401.9] Karma Bahena MD [facility] CPT- 4: 73237 04/29/2014 ([id number]) 31601 EST. PATIENT, LEVEL IV Diagnosis: ESSENTIAL HYPERTENSION[ICD9: 401.9] Diagnosis: ALLERGIC RHINITIS[ICD9: 477.9] Karma Bahena MD [facility] CPT-4: 39533 03/20/2014 ([id number]) 25897 EST. PATIENT, LEVEL IV Diagnosis: ESSENTIAL HYPERTENSION[ICD9: 401.9] Diagnosis: ATRIAL FIBRILLATION[ICD9: 427.31] Diagnosis: Irritable bowel[ICD9: 564.1] Karma Bahena MD [facility] CPT-4: 53520 03/05/2014 ([id number]) 27317 EST. PATIENT, LEVEL IV Diagnosis: Esophageal reflux[ICD9: 530.81] Diagnosis: DIARRHEA[ICD9: 787.91] Diagnosis: ABDOM PAIN NOS SITE[ICD9: 789.00] Karma Bahena MD [facility] CPT- 4: 70266 01/29/2014 ([id number]) 39774 EST. PATIENT, LEVEL III Diagnosis: Irritable bowel[ICD9: 564.1] Diagnosis: DIARRHEA[ICD9: 787.91] Laura Bahena MD, [facility] CPT-4: 26781 01/14/2014 ([id number]) 28474 EST. PATIENT, LEVEL IV Diagnosis: ESSENTIAL HYPERTENSION[ICD9: 401.9] Diagnosis: ATRIAL FIBRILLATION[ICD9: 427.31] Diagnosis: URGE INCONTINENCE[ICD9: 788.31] Diagnosis: MALAISE AND FATIGUE[ICD9: 780.79] Diagnosis: Dyspnea[ICD9: 786.09] Karma Bahena MD, [facility] CPT-4: 14476 12/25/2013 ([id number]) 19630 EST. PATIENT, LEVEL IV Diagnosis: ESSENTIAL HYPERTENSION[SNOMED: 96738900] Diagnosis: ATRIAL FIBRILLATION[ICD9: 427.31] Diagnosis: Abdominal pain[ICD9: 789.00] Diagnosis: ESOPHAGEAL REFLUX[ICD9: 530.81] Karma Bahena MD, [facility] CPT-4: 14435 11/27/2013 ([id number]) 66035 EST. PATIENT, LEVEL IV Diagnosis: ESSENTIAL HYPERTENSION[SNOMED: 69379200] Diagnosis: ATRIAL FIBRILLATION[ICD9: 427.31] Diagnosis: Chronic osteoarthritis[ICD9: 715.90] Karma Bahena MD, [facility] CPT- 4: 25443 09/12/2013 ([id number]) 16965 EST. PATIENT, LEVEL III Diagnosis: ESSENTIAL HYPERTENSION[SNOMED: 80548324] Diagnosis: Bruising[ICD9: 924.9] Diagnosis: ENCNTR LONG-RX USE NEC[ICD9: V58.69] Karma Bahena MD, [facility] CPT- 4: 19863 08/15/2013 ([id number]) 14155 EST. PATIENT, LEVEL IV Diagnosis: ESSENTIAL HYPERTENSION[SNOMED: 50408692] Diagnosis: Hematuria[ICD9: 599.70] Diagnosis: Dysuria[ICD9: 788.1] Karma Bahena MD, [facility] CPT-4: 23847 08/01/2013 ([id number]) 13666 EST. PATIENT, LEVEL III Diagnosis: UTI[ICD9: 599.0] Diagnosis: Hematuria[ICD9: 599.70] Laura Bahena MD, [facility] CPT-4: 40460 07/01/2013 ([id number]) 71942 EST. PATIENT, LEVEL III Diagnosis: ATRIAL FIBRILLATION[ICD9: 427.31] Diagnosis: ESSENTIAL HYPERTENSION[SNOMED: 50878106] Karma Bahena MD, [facility] CPT-4: 60266 05/29/2013 ([id number]) 12968 EST. PATIENT, LEVEL IV Diagnosis: Atrial fibrillation[ICD9: 427.31] Diagnosis: Encounter for monitoring digoxin therapy[ICD9: V58.83] Diagnosis: ESSENTIAL HYPERTENSION[SNOMED: 85206932] Karma Bahena MD [facility] CPT-4: 01050 05/15/2013 ([id number]) 97867 EST. PATIENT, LEVEL IV Diagnosis: ESSENTIAL HYPERTENSION[SNOMED: 28533282] Diagnosis: ATRIAL FIBRILLATION[ICD9: 427.31] Diagnosis: PALPITATIONS[ICD9: 785.1] Diagnosis: Dizziness and giddiness[ICD9: 780.4] Karma Bahena MD, [facility] CPT- 4: 65490 04/23/2013 ([id number]) 34125 EST. PATIENT, LEVEL III Diagnosis: OTHER CONSTIPATION[ICD9: 564.09] Diagnosis: ABDOM PAIN NOS SITE[ICD9: 789.00] Laura Bahena MD, [facility] CPT- 4: 80808 03/21/2013 ([id number]) 46604 EST. PATIENT, LEVEL IV Diagnosis: ESSENTIAL HYPERTENSION[SNOMED: 08006864] Diagnosis: Atrial fibrillation[ICD9: 427.31] Karma Bahena MD, [facility] CPT- 4: 93662 01/16/2013 ([id number]) Miscellaneous no charge Diagnosis: CELLULITIS OF HAND[ICD9: 682.4] Karma Bahena MD [facility] CPT-4: 96049 12/19/2012 ([id number]) Miscellaneous no charge Diagnosis: ENCOUNTER FOR THERAPEUTIC DRUG MONITORING[ICD9: V58.83] Diagnosis: CELLULITIS OF HAND[ICD9: 682.4] Karma Bahena MD [facility] CPT-4: 51780 12/14/2012 Miscellaneous no charge Diagnosis: CELLULITIS OF HAND[ICD9: 682.4] Karma Bahena MD [facility] CPT-4: 54009 12/12/2012 46342 EST. PATIENT, LEVEL II Diagnosis: CELLULITIS OF HAND[ICD9: 682.4] Diagnosis: ENCNTR LONG-RX USE NEC[ICD9: V58.69] Diagnosis: LONG-TERM USE ANTICOAGUL[ICD9: V58.61] Karma Bahena MD [facility] CPT-4: 48893 12/11/2012 ([id number]) 92936 EST. PATIENT, LEVEL III Diagnosis: CELLULITIS OF HAND[ICD9: 682.4] Karma Bahena MD [facility] CPT-4: 93848 12/10/2012 ([id number]) 60298 EST. PATIENT, LEVEL IV Diagnosis: Elevated digoxin level[ICD9: 796.0] Diagnosis: ATRIAL FIBRILLATION[ICD9: 427.31] Diagnosis: Inflammatory arthritis[ICD9: 714.9] [facility] CPT- 4: 51303 10/30/2012 ([id number]) 39138 EST. PATIENT, LEVEL IV Diagnosis: Atrial fibrillation[ICD9: 427.31] Diagnosis: Anticoagulant long-term use[ICD9: V58.61] Diagnosis: ESSENTIAL HYPERTENSION[SNOMED: 24920654] [facility] CPT-4: 32336 08/08/2012 ([id number]) 36542 EST. PATIENT, LEVEL IV Diagnosis: ABDOM PAIN NOS SITE[ICD9: 789.00] Diagnosis: Constipation - functional[ICD9: 564.09] Diagnosis: EDEMA[ICD9: 782.3] Diagnosis: ATRIAL FIBRILLATION[ICD9: 427.31] [facility] CPT- 4: 78317 07/11/2012 ([id number]) 00464 EST. PATIENT, LEVEL III Diagnosis: Cystocele[ICD9: 618.01] Diagnosis: Rectocele[ICD9: 618.04] [facility] CPT-4: 35500 05/08/2012 ([id number]) 82985 EST. 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 PATIENT, LEVEL IV Diagnosis: ATRIAL FIBRILLATION[ICD9: 427.31] Diagnosis: URGE INCONTINENCE[ICD9: 788.31] Diagnosis: MALAISE AND FATIGUE[ICD9: 780.79] Diagnosis: Dyspnea[ICD9: 786.09] [facility] CPT-4: 79021 02/20/2012 98762 EST. PATIENT, LEVEL IV Diagnosis: Hematuria[ICD9: 599.70] Diagnosis: Vaginal yeast infection[ICD9: 112.1] Diagnosis: ATRIAL FIBRILLATION[ICD9: 427.31] [facility] CPT- 4: 89531 02/13/2012 ([id number]) 78445 EST. PATIENT, LEVEL IV Diagnosis: Atrial fibrillation[ICD9: 427.31] Diagnosis: Anticoagulation goal of INR 2 to 3[ICD9: V58.83] Diagnosis: Urinary incontinence, urge[ICD9: 788.31] Diagnosis: ESSENTIAL HYPERTENSION[SNOMED: 99753420] Karma Bahena MD, [facility] CPT-4: 95614 02/01/2012 ([id number]) 99535 EST. PATIENT, LEVEL IV Diagnosis: Atrial fibrillation[ICD9: 427.31] Diagnosis: Anticoagulant long-term use[ICD9: V58.61] Diagnosis: ESSENTIAL HYPERTENSION[SNOMED: 32842907] Karma Bahena MD, [facility] CPT-4: 25300 2012 [id number] EST. PATIENT, LEVEL IV Diagnosis: UTI[ICD9: 599.0] Diagnosis: ESSENTIAL HYPERTENSION[SNOMED: 94143549] Diagnosis: MALAISE AND FATIGUE[ICD9: 780.79] Diagnosis: Esophageal reflux[ICD9: 530.81] Karma Bahena MD, [facility] CPT-4: 86751 12/01/2011 ([id number]) 95591 EST. PATIENT, LEVEL IV Diagnosis: UTI (urinary tract infection)[ICD9: 599.0] Diagnosis: ESSENTIAL HYPERTENSION[SNOMED: 12475050] Diagnosis: URGE INCONTINENCE[ICD9: 788.31] Karma Bahena MD, [facility] CPT-4: 38231 11/23/2011 ([id number]) 88818 EST. PATIENT, LEVEL IV Diagnosis: ESSENTIAL HYPERTENSION[SNOMED: 78602761] Diagnosis: IMPACTED CERUMEN[ICD9: 380.4] Diagnosis: MALAISE AND FATIGUE[ICD9: 780.79] Diagnosis: EDEMA[ICD9: 782.3] Karma Bahena MD, [facility] CPT-4: 55006 10/03/2011 [id number] EST. PATIENT, LEVEL IV Diagnosis: ESSENTIAL HYPERTENSION[SNOMED: 40855240] Diagnosis: Generalized osteoarthritis[ICD9: 715.09] Diagnosis: OSTEOPOROSIS[ICD9: 733.00] Karma Bahena MD, [facility] CPT-4: 22482 08/08/2011 [id number] EST. PATIENT, LEVEL IV Diagnosis: Muscle cramp[ICD9: 729.82] Diagnosis: Torticollis[ICD9: 723.5] Diagnosis: Rash[ICD9: 782.1] Karma Bahena MD, [facility] CPT-4: 73650 05/09/2011 [id number] EST. PATIENT, LEVEL IV Diagnosis: Leg cramps, sleep related[ICD9: 327.52] Diagnosis: Underweight[ICD9: 783.22] Karma Bahena MD, [facility] CPT-4: 13336 03/29/2011 [id number] EST. PATIENT, LEVEL IV Diagnosis: UTI[ICD9: 599.0] Diagnosis: Urge incontinence[ICD9: 788.31] Diagnosis: Loss of weight[ICD9: 783.21] Diagnosis: Palpitations[ICD9: 785.1] Diagnosis: Peripheral neuropathy, idiopathic[ICD9: 356.9] Karma Bahena MD, [facility] CPT-4: 87627 03/15/2011 Plan of Care Planned Activity Notes Codes Status Date Visit Plan: Hand pain with arthritis - Raynaud syndrome - discussed with pt - RX for Voltaren gel sent to the pharmacy. continue with amlodipine. 10/09/2018 Patient Education: Patient Medication Summary Completed 10/09/2018 Appointment: Karma Bahena WPtel: [address] [place], [place] [address] (15 min) Moderate 10/01/2018 Visit Plan: URI [...] concerns. 09/12/2018 Appointment: [facility] (15 min) Moderate 09/12/2018 Patient Education: Patient Medication Summary Completed 09/12/2018 Appointment: Karma Bahena WPtel: [facility] (15 min) Moderate 08/16/2018 Visit Plan: I [...] surgically removed. 08/14/2018 Appointment: Karma Bahena WPtel: [facility]5 [facility] (15 min) Moderate 08/14/2018 Patient Education: Patient [...] removed. 07/26/2018 Appointment: Karma Bahena WPtel: [phone] [facility] (15 min) Moderate 07/26/2018 Patient Education: Patient [...] improving. 06/04/2018 Appointment: Karma Bahena WPtel: 1015 [facility]6[address] (15 min) Moderate 06/04/2018 Patient Education: Patient Medication Summary Completed 06/04/2018 Appointment: Karma Bahena WPtel: [facility]5 [facility] (15 min) Moderate 03/14/2018 Visit Plan: Hypertension [...] q 3 months or q [address] [facility] based on previous levels of control. 01/31/2018 Appointment: Katharine Dai WPtel: 1015 [facility] [facility] - Annual Wellness Visit 01/31/2018 [...] allergy spray. 12/14/2017 Appointment: Karma Bahena WPtel: [facility] (15 min) Moderate 12/14/2017 Patient Education: [...] allergy spray. 12/07/2017 Appointment: Katharine Dai WPtel: [phone] [facility] (15 min) Moderate 12/07/2017 Patient Education: [...] q 3 months or q [address] [facility] based on previous levels of control. 11/14/2017 Appointment: Karma Bahena WPtel[facility] [facility] (15 min) Moderate 11/14/2017 Patient Education: [...] shot today. 03/27/2017 Appointment: Karma Bahena WPtel: [facility]5 [facility]6[address] (15 min) Moderate 03/27/2017 Patient Education: [...] care surrogate. 01/23/2017 Appointment: Katharine Dai WPtel: [facility]5 [facility] [place] [address] - Annual Wellness Visit 01/23/2017 Patient Education: [...] becoming uncontrolled. 01/19/2017 Appointment: Karma Bahena WPtel: [facility]8 [facility] (15 min) Moderate 01/19/2017 Patient Education: Patient Medication Summary Completed 01/19/2017 Care Plan: Referral Order SNOMED-CT : [id number] Pending 01/19/2017 Appointment: Karma Bahena WPtel: [phone] [facility] (15 min) Moderate 01/04/2017 Appointment: Karma Bahena WPtel: 1013 [facility]6[address] (15 min) Moderate 12/28/2016 Visit Plan: SBH-[id number]-[id number] zpack-call if symptoms do not resolve or if any worse. Patient verbalized understanding of plan. 11/29/2016 Appointment: Laura Colin WPtel: 1015 [phone] (15 min) Moderate 11/29/2016 Patient Education: [...] sent to patient's pharmacy. 11/23/2016 Appointment: Katharine Dia WPtel: [facility]0 [facility] (15 min) Moderate 11/23/2016 Patient Education: Patient Medication Summary Completed 11/23/2016 Visit Plan: Pharyngitis-Discussed natural and expected course of this diagnosis and need to alert me if symptoms do not follow expected course, or if any worse. Recommended salt water gargles as needed for pain. Ty lenol/motrin as needed for fever/discomfort. 11/21/2016 Appointment: Laura Colin WPtel: 1012 [phone] (15 min) Moderate 11/21/2016 Patient Education: [...] symptoms. 11/08/2016 Appointment: Karma Bahena WPtel: [facility] [facility] (10 min) Simple 11/08/2016 Patient Education: [...] bactroban, etc. 11/02/2016 Appointment: Karma Bahena WPtel: [facility] (15 min) Moderate 11/02/2016 Appointment: Nurse Visit 11/02/2016 Patient Education: Patient Medication Summary Completed 11/02/2016 Appointment: Nurse Visit 10/31/2016 Visit Plan: Laceration-right forearm- Pt was instructed to keep the wound clean, cleanse with sterile saline, use bactroban ointment, call if redness, pustular drainage, or any other acute concerns. Follow up Monday for dressing changes. 10/27/2016 Appointment: Laura Colin [facility]Ptel[facility] (30 min) Complex 10/27/2016 Patient Education: Patient [...] in symptoms. 08/31/2016 Appointment: Karma Bahena WPtel: [facility] (15 min) Moderate 08/31/2016 Patient Education: [...] your swelling. 07/27/2016 Appointment: Karma Bahena WPtel: [facility] (15 min) Moderate 07/27/2016 Patient [...] of lasix 06/23/2016 Appointment: Karma Bahena WPtel: [facility] (15 min) Moderate 06/23/2016 Patient Education: Patient Medication Summary Completed 06/23/2016 Patient Education: Hypertension Completed 06/23/2016 Visit Plan: Edema - with Dyspnea - RX for laxis and compression socks - pt to call if not improving. 06/09/2016 Appointment: Karma Bahena WPtel: [address] [place], [place] [id number] (15 min) Moderate 06/09/2016 Patient Education: Patient Medication Summary Completed 06/09/2016 Visit Plan: Abdominal pain and rectal itching - recommended pt to use betamethasone on vaginal/rectal region, monitor symptoms call if not improving. Continue with beano and simethicone 05/25/2016 Appointment: Karma Bahena WPtel: [address] [place], [place] [phone] (15 min) Moderate 05/25/2016 Patient Education: Patient Medication Summary Completed 05/25/2016 Care Plan: SCREENINGMAMMOGRAPHYDIGITAL [facility] : [id number] Pending 05/20/2016 Visit Plan: Abdominal distension - use simethicone four times daily - after meals - if it does not help - in the next two weeks - call the office and we will do a ct scan of the abdomen and pelvis 05/17/2016 Appointment: Karma Bahena WPtel: [address] [place], [place] [phone] (15 min) Moderate 05/17/2016 Patient Education: Patient [...] steroid ointment 03/24/2016 Appointment: Karma Bahena WPtel: [address] [place], [place] [phone] (30 min) Complex 03/24/2016 Patient Education: Patient [...] Colin WPtel: [facility]5 [phone] (30 min) Complex 12/21/2015 Patient Education: [...] uncontrolled. 11/03/2015 Appointment: Karma Bahena WPtel: [address] [facility] (15 min) Moderate 11/03/2015 Patient [...] had left kidney and ureter removed in [place]-doing well 09/01/2015 Appointment: (30 min) Complex 09/01/2015 Patient Education: Patient Medication Summary Completed 09/01/2015 Patient Education: Hypertension Completed 09/01/2015 Appointment: Karma Bahena WPtel: [address] [place], [place] [address] (15 min) Moderate 07/13/2015 Visit Plan: Hematuria/Urethritis [...] 05/13/2015 Care Plan: Referral Order SNOMED-CT : [id number] Ordered 05/08/2015 Visit Plan: Atrial Fibrillation - [...] Dr. Collins. 05/07/2015 Appointment: Karma Bahena WPtel: [address] [place], [place] [address] (15 min) Moderate 05/07/2015 Patient Education: Patient [...] becoming uncontrolled. 10/30/2014 Appointment: Karma Bahena WPtel: [address] [place], [place] [phone] Follow up 10/30/2014 Patient Education: Patient Medication Summary Completed 10/30/2014 Appointment: Karma Bahena WPtel: [address] [place], [place] [address] Follow up 07/22/2014 Visit Plan: Atrial Fibrillation [...] in hospital. 07/11/2014 Appointment: Karma Bahena WPtel: [address] [place], [place] [phone] Sick 07/11/2014 Patient Education: Patient Medication Summary Completed 07/11/2014 Appointment: Karma Bahena WPtel: [address] [place], [place] [phone] Follow up 07/07/2014 Visit Plan: Urinary incontinence and recurrent UTI's - doctor will refer to Dr. Joel Collins - for nonsurgical intervention for potential electrical stimulation/training of pelvic floor muscles - for strengthening - can start on the treatment when you get back from [place] - will also ask him about doing [...] Karma Bahen[facility]Ptel[phone] [facility] Lab Draw 05/14/2014 Patient Education: Patient [...] uncontrolled. Incontinence - recommended vesicare. 04/29/2014 Appointment: Josef Karma WPtel: [facility]5 [facility] Follow up [...] allergy spray. 03/20/2014 Appointment: Karma Bahena WPtel: [facility]5 [facility] [facility] 03/20/2014 Patient Education: Patient Medication Summary [...] becoming uncontrolled. 03/05/2014 Appointment: Karma Bahena WPtel: [address] [place], [place] [phone] Follow up 03/05/2014 Patient Education: Patient Medication [...] be called with report. 01/29/2014 Appointment: Karma Bahenal: [facility] [facility] Follow up 01/29/2014 Patient [...] exposure,and dyspnea on exertion - will ask [place] [facility] do an overnight oxygen study on [place] as she has cardiac history, weight loss, and nocturnal hypoxemia may be a part of her weight loss and fatigue. 12/25/2013 Appointment: Karma Bahena WPtel: [address]5 [facility] Follow up 12/25/2013 Patient [...] heart rate. Osteoarthritis - send pt to [facility] physical therapy [facility] for strengthening and pain reduction. Hypertension - well controlled - continue with current medications, continue with no added salt diet. Pt has been encouraged to exercise daily. The pt has been advised to call the office if there are any acute concerns about change in blood pressure readings at home. 09/12/2013 Appointment: Karma Bahena WPtel: [address] [facility] Follow up 09/12/2013 Patient Education: Patient Medication Summary Completed 09/12/2013 Patient Education: Hypertension Completed 09/12/2013 Appointment: Karma Bahena WPtel: 1015 [facility] Follow up 08/21/2013 Visit Plan: [...] PT/INR 08/15/2013 Appointment: Karma Bahena WPtel: 1011 [facility] Follow up 08/15/2013 Patient Education: [...] Bahena WPtel: [facility] [place] Follow up 08/01/2013 Patient Education: Patient Medication Summary Completed 08/01/2013 Patient Education: Hypertension Completed 08/01/2013 Appointment: Laura Colin WPtel: [facility] [place] Lab Draw 07/29/2013 Patient Education: Patient Medication Summary Completed 07/29/2013 Visit Plan: Osteoporosis-prolia on june 25-patient to let Dr Hansen know 07/01/2013 Appointment: Laura Colin WPtel: [facility] [place] Follow up 07/01/2013 Appointment: Karma Bahena WPtel: [facility] [place] Follow up 07/01/2013 Patient Education: Patient Medication Summary Completed 07/01/2013 Appointment: Karma Bahena WPtel: [address] [facility] [place] Follow up 06/25/2013 Appointment: Karma Bahena WPtel: [address] [place], [place] [address] [place] Lab Draw 06/20/2013 Patient Education: Patient Medication Summary Completed 06/20/2013 Appointment: Karma Bahena WPtel: [facility] Lab Draw 06/19/2013 Visit Plan: Atrial [...] Bahena WPtel: [facility]5 [facility] Follow up 05/29/2013 Patient Education: [...] Bahena WPtel: [facility] Other 05/15/2013 Patient Education: [...] shot today. 04/23/2013 Appointment: Karma Bahena WPtel: [address] [place], [place] [phone] Other 04/23/2013 Patient Education: Patient Medication Summary [...] this regimen. 03/21/2013 Appointment: Laura Colin WPtel: [facility]5 [phone] Follow up 03/21/2013 Patient Education: Patient [...] becoming uncontrolled. 01/16/2013 Appointment: Karma Bahena WPtel: [address] [place], [place] [phone] Follow up 01/16/2013 Patient Education: Patient Medication Summary Completed 01/16/2013 Patient Education: Hypertension Completed 01/16/2013 Visit Plan: Wound Instructions - Pt was instruced to keep the wound clean, wash with antibacterial soap, use triple antibiotic ointment, call if redness, pustular drainage, or any other acute conerns. 12/19/2012 Appointment: Karma Bahena WPtel: [address] [place], [place] [phone] Other 12/19/2012 Patient Education: Patient Medication Summary Completed 12/19/2012 Patient Education: Patient Medication Summary Completed 12/17/2012 Visit Plan: Cellulitis - improved- monitor symptoms - need to check handon Monday morning. 12/14/2012 Appointment: Karma Bahena WPtel: [address] [place], [place] [phone] Follow up 12/14/2012 Patient Education: Patient Medication Summary Completed 12/14/2012 Visit Plan: Cellulitis - improved- monitor symptoms - need to check handon Monday morning. 12/12/2012 Appointment: Karma Bahena WPtel: [address] [place], [place] [phone] Work-in 12/12/2012 Patient Education: Patient Medication Summary [...] discharge. 12/10/2012 Appointment: Karma Bahena WPtel: [address] [place], [place] [phone] Other 12/10/2012 Patient Education: Patient Medication Summary [...] becoming uncontrolled. 10/30/2012 Appointment: Karma Bahena WPtel: [facility]4 [facility] Follow up 10/30/2012 Patient Education: Patient Medication Summary Completed 10/30/2012 Appointment: Laura Colin WPtel: [phone] [phone] [place] Lab Draw 09/13/2012 Patient Education: [...] and 3.5. 08/08/2012 Appointment: Karma Bahena WPtel: [facility]3 [place] [id number] Other 08/08/2012 Patient Education: Patient Medication Summary [...] this regimen. 07/11/2012 Appointment: Karma Bahena WPtel: [phone] [facility] swelling, leg edema Other 07/11/2012 [...] Bahena WPtel: [facility] [place] Follow up 04/18/2012 Patient Education: Patient Medication Summary Completed 04/18/2012 Patient Education: High Blood Pressure: Essential Hypertension Completed 04/18/2012 Appointment: Karma Bahena WPtel: [address] [facility] [place] Follow up 04/09/2012 Appointment: Karma Bahena WPtel: [address]2 [facility] [place] Lab Draw 04/04/2012 Appointment: Laura Colin WPtel: [facility] [place] Lab Draw 03/19/2012 Visit Plan: [...] Hypertension Completed 03/13/2012 Appointment: Karma Bahena WPtel: [facility] Lab Draw 03/08/2012 Patient Education: Patient [...] rehab. 02/20/2012 Appointment: Karma Bahena WPtel: [facility] [facility] [place] Other 02/20/2012 Patient Education: Patient Medication [...] becoming uncontrolled. 02/13/2012 Appointment: Laura Colin WPtel: 1010 [phone] Other 02/13/2012 Patient Education: Patient Medication Summary Completed 02/13/2012 Appointment: Karma Bahena WPtel: 1019 [facility] [place] Lab Draw 02/07/2012 Visit Plan: Atrial [...] medication. 02/01/2012 Appointment: Karma Bahena WPtel: [address] [place], [place] [phone] Other 02/01/2012 Patient Education: Patient Medication Summary Completed 02/01/2012 Patient Education: High Blood Pressure: Essential Hypertension Completed 02/01/2012 Appointment: Karma Bahena WPtel: [address] [place] [address] Lab Draw 01/17/2012 Visit Plan: Atrial Fibrillation [...] home. 2012 Appointment: Karma Bahena WPtel: [address] [place], [place] [phone] Other 2012 Patient Education: Patient Medication Summary Completed 2012 Patient Education: High Blood Pressure: Essential Hypertension Completed 2012 Appointment: Karma Bahena WPtel: [address] [place], [place] [phone] Follow up 12/20/2011 Visit Plan: Dicyclomine up [...] room. 12/01/2011 Appointment: Karma Bahena WPtel: [phone] Other 12/01/2011 Patient Education: Patient Medication Summary [...] resolves. 11/23/2011 Appointment: Laura Colin WPtel: 1015 [phone] Other 11/23/2011 Patient Education: Patient Medication [...] hearing 10/17/2011 Appointment: Laura Colin WPtel: [phone] [phone] Other 10/17/2011 Patient Education: Patient Medication Summary [...] Bahena WPtel: [facility] [address] Other 10/03/2011 Patient Education: Patient Medication [...] is evidence. 08/08/2011 Appointment: Karma Bahena WPtel: [facility]5 [facility]6[address] Other 08/08/2011 Patient Education: Patient Medication Summary Completed 08/08/2011 Patient Education: High Blood Pressure: Essential Hypertension Completed 08/08/2011 Visit Plan: Muscle cramps - the cramps are a little better, continue with the Diltiazem and it is okay to use the over the counter supplement with quinine - but use it sparingly. For the rash, use the prescripti on the economics instructor prescribed for the itching , call if the rash is not improved. Torticollis - continue with physical therapy, call if the neck muscles do not continue to show improvement. 05/09/2011 Appointment: Karma Bahena WPtel: [address] [place], [place] [phone] Other 05/09/2011 Patient Education: Patient Medication Summary [...] water aerobics. 03/29/2011 Appointment: Karma Bahena WPtel: [address] [place], [place] [phone] [place] Other 03/29/2011 Patient Education: Patient Medication Summary Completed 03/29/2011 Appointment: Karma Bahena WPtel: [address] [place], [place] [phone] Other 03/17/2011 Visit Plan: UTI - UA negative. Urge incontinence- restart on the vesicare- at 5 mg. Continue to avoid caffinated foods/fluids. Peripheral Neuropathy - per systems eng report - Continue with the metanex. Loss of weight - WEIGHT CHECK IN 2 WKS. Palpitations- likely stress induced. If the symptoms worsen, call the office. 03/15/2011 Appointment: Karma Bahena WPtel: [address] [place], [place] [phone] Follow up 03/15/2011 Patient Education: Patient Medication [...] to help decrease irritation of urethra. . Atrial Fibrillation - pt on chronic anticoagulation and is currently rate controlled. The pt is to have labs done as appropriate to monitor medication levels and is to report if they start to feel as if their heart rate is becoming uncontrolled. Digoxin and Coumadin doses are good for control of anticoagulation and heart rate. Osteoarthritis - send pt to [facility] physical therapy for gereral osteoarhtritis program for strengthening and pain reduction. Hypertension - well controlled - continue with current medications, continue with no added salt diet. Pt has been encouraged to exercise daily. The pt has been advised to call the office if there are any acute concerns about change in blood pressure readings at home. . Hypothyroidism - pt with chronic hypothyroidism, [...] continue with supportive care, bactroban, etc. . Leg cramps - uncontrolled with the [...] continue with water aerobics. . Cellulitis - improved- monitor symptoms - need to check handon Monday morning. . Muscle cramps - the cramps are a little better, continue with the Diltiazem and it is okay to use the over the counter supplement with quinine - but use it sparingly. For the rash, use the prescription the economics instructor prescribed for the itching , call if the rash is not improved. Torticollis - continue with physical therapy, call if the neck muscles do not continue to show improvement. . Cellulitis - improved- monitor symptoms - [...] in blood pressure readings at home. . JIS-edjal-vdq zpack-call if symptoms do not resolve or [...] consistency, recheck at follow up appointment. . Hypertension - well controlled - continue [...] have the wax removed by irrigation. . UTI - UA negative. Urge incontinence- restart on the vesicare- at 5 mg. Continue to avoid caffinated foods/fluids. Peripheral Neuropathy - per systems eng report - Continue with the metanex. Loss of weight - WEIGHT CHECK IN 2 WKS. Palpitations- likely stress induced. If the symptoms worsen, call the office. change the thyroid to 1/2 pill on [...] for INR is between 2.0 and 3.5. increase the lisinopril to 20mg twice daily [...] Fstigue and dypnea- recommended cardiac rehab. . Abdominal pain and rectal itching - [...] office if the symptoms are not improving. . Hypertension - well controlled - continue [...] and start on probiotic twice daily. . Hand pain with arthritis - Raynaud [...] been given high dose flu shot today. RETURN FOR DRESSING CHANGE ON MONDAY . Laceration-right forearm- Pt was instructed to keep the wound clean, cleanse with sterile saline, use bactroban ointment, call if redness, pustular drainage, or any other acute concerns. Follow up Monday for dressing changes. boil ease or recticare - if having acute or worsening discomfort - call doctor - may need an antibiotic. MUCINEX 600mg twice daily for decrease in mucus in throat . boil ease or recticare - if having acute or worsening discomfort - call doctor - may need an antibiotic. MUCINEX 600mg twice daily for decrease in mucus in throat . Edema - with Dyspnea - RX for laxis and compression socks - pt to call if not improving. . Rocephin 500mg IM pt is to [...] in blood pressure readings at home. . Medicare Exam - today we discussed [...] had left kidney and ureter removed in [place]- doing well . Hematuria - check UA. [...] it would need to be surgically removed. Increase diltiazem 120mg cd ONE pill TWICE [...] 25-patient to let Dr Hansen know . Hematuria-positive blood on UA today-plan to [...] of bedbugs, call if there is evidence. INCREASE YOUR LISINOPRIL 10MG TO 2 PILLS [...] acute concerns. Bruising-left leg-no injuury-on coumadin-check PT/INR switch to tatiana . URI/ALLERGIES- recommended pt [...] if this helps with your swelling. . Hypertension - well controlled - continue [...] scan of the abdomen and pelvis . ua obtained, no need for culture at this time. PT HAS BEEN INSTRUCTED TO START USING [...] the treatment when you get back from [place] - will also ask him about doing a cystoscopy to look into bladder to see if there is any bladder irritation. keep using the Premarin - use about 25Cent size of cream onto finger to apply to urethra and do this three times weekly. strep swab daily anti histamine . Pharyngitis-Discussed [...] exposure,and dyspnea on exertion - will ask [place] Patient do an overnight oxygen study on [...] until pt is seen by Dr. Samantha Hammondib - symptoms stable - continue current meds - no change in symptoms. . Wound Instructions - Pt was instruced to keep the wound clean, wash with antibacterial soap, use triple antibiotic ointment, call if redness, pustular drainage, or any other acute conerns. . Wound care - continue with dressing [...]
[2018-12-10 19:53] VITALS: BP 138/66
--- OUTSIDE RECORDS SUMMARY | 2018-12-10 19:57 | XMS REPORT | CCD ---
Author Author Laura Colin Organization Karma Bahena MD, [facility] Address [address] [place] [address] Phone Care Team Providers Care Government Contracts Manager Name Role Phone Karma Bahena PP Unavailable CCM Unavailable Summary Purpose Interface Exchange Insurance Providers Payer name Policy type / Coverage type Covered green party ID Effective Begin Date Effective End Date WPS Medicare Part B Medicare Part B [id number] 2018 Unknown AARP Medicare Part B [id number] 2018 Unknown Family history Sister Diagnosis Age [...] Unknown House 03/15/[address]: 087970006 Never smoker 03/15/2011 Has the patient ever used illegal drugs? Unknown Has never used illegal drugs 03/15/2011 Allergies, Adverse Reactions, Alerts Substance Reaction Codes Entered Date Inactivated Date Status BACTINE RxNorm: 681484 03/04/2011 No Inactive Date Active MICONAZOLE RxNorm: 6932 03/04/2011 No Inactive Date Active NEOSPORIN RxNorm: 721554 03/04/2011 No Inactive Date Active NEOMYCIN RxNorm: 7299 03/04/2011 No Inactive Date Active CORTISPORIN RxNorm: 49464 03/04/2011 No Inactive Date Active bactrim RxNorm: 804519 03/13/2012 No Inactive Date Active AUGMENTIN diarrhea RxNorm: 336834 2016 No Inactive Date Active METRONIDAZOLE Unknown [...] 9: 729.5 ICD-10: M79.674 Active 08/14/2018 Unknown Raynaud's syndrome without 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 Active 07/26/2018 Unknown Sebaceous cyst ICD-9: 706.2 ICD-10: L72.3 [...] 401.9 ICD-10: I10 Active 12/25/2013 Unknown 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 ICD-9: V58.83 ICD-10: Z79.899 [...] 706.2 ICD-10: L72.0 Active 02/01/2016 Unknown 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 ICD-9: V58.69 ICD-10: Z79.899 [...] ICD- 9: 729.5 ICD-10: M79.674 08/14/2018 Active Raynaud's syndrome without 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 07/26/2018 Active Sebaceous cyst ICD-9: 706.2 ICD-10: L72.3 [...] ICD-9: 401.9 ICD-10: I10 12/25/2013 Active Other shelter (current) drug therapy ICD-9: V58.83 ICD-10: Z79.899 [...] ICD-9: 706.2 ICD-10: L72.0 02/01/2016 Active Other shelter (current) drug therapy ICD-9: V58.69 ICD-10: Z79.899 [...] Start Date Stop Date Status Fill Instructions levothyroxine 75 mcg tablet RxNorm: 709217 1 Tablet(s) PO daily 09/19/2018 01/16/2019 Active Keflex 500 mg capsule RxNorm: 286236 1 Capsule(s) PO TID 09/12/2018 09/18/2018 Inactive cyclobenzaprine 5 mg tablet RxNorm: 249015 Tablet(s) TABLET(S) 1/2 TABLET(S) PO Q8 NEEDED MUSCLE SPASMS 08/14/2018 No Stop Date Active spironolactone 25 mg tablet RxNorm: 913881 1 Tablet(s) PO BID 08/14/2018 11/06/2019 Active see new directions and quantity Nitro-Bid 2 % transdermal ointment RxNorm: 744409 1 dime size amount TD BID to fingers and toes 08/14/2018 09/12/2018 Inactive cyclobenzaprine 5 mg tablet RxNorm: 088372 TABLET(S) 1/2 TABLET(S) PO Q8 NEEDED MUSCLE SPASMS 08/06/2018 08/13/2018 Inactive amlodipine 5 mg tablet RxNorm: 804838 1/2 Tablet(s) PO daily may take an extra 1/2 pill at the end of the day if blood pressure is elevated over 140 07/26/2018 12/22/2018 Active cefdinir 300 mg capsule RxNorm: 112060 1 Capsule(s) PO BID 06/20/2018 06/26/2018 Inactive cefdinir 300 mg capsule RxNorm: 958543 1 Capsule(s) PO BID 06/20/2018 06/19/2018 Inactive metoprolol succinate ER 50 mg tablet,extended release 24 hr RxNorm: 846536 1.5 Tablet(s) daily 06/15/2018 03/11/2019 Active sucralfate 100 mg/mL oral suspension RxNorm: 043053 2 Teaspoon(s) PO TID as needed with reflux symptoms 06/04/2018 No Stop Date Active Vesicare 10 mg tablet RxNorm: 465902 1 TABLET(S) PO EVERY OTHER DAY 05/14/2018 01/08/2019 Active levothyroxine 50 mcg tablet RxNorm: 672361 1 TABLET(S) PO DAILY 04/30/2018 09/18/2018 Inactive Patient requests 90 days supply spironolactone 25 mg tablet RxNorm: 271251 1 Tablet(s) PO daily 03/14/2018 08/13/2018 Inactive levothyroxine 50 mcg tablet RxNorm: 942029 1 Tablet(s) PO daily 02/01/2018 04/29/2018 Inactive Eliquis 2.5 mg tablet RxNorm: 2450314 1 Tablet(s) PO BID 01/31/2018 02/20/2018 Inactive levothyroxine 50 mcg tablet RxNorm: 493672 1 Tablet(s) PO daily 01/31/2018 01/31/2018 Inactive Eliquis 2.5 mg tablet RxNorm: 5172108 TAKE 1 TABLET BY MOUTH TWICE DAILY 01/23/2018 07/21/2018 Inactive metoprolol succinate ER 50 mg tablet,extended release 24 hr RxNorm: 617811 1 TABLET(S) PO DAILY 01/23/2018 01/30/2018 Inactive metoprolol succinate ER 50 mg tablet,extended release 24 hr RxNorm: 615659 1.5 Tablet(s) daily 01/22/2018 06/14/2018 Inactive lisinopril 20 mg tablet RxNorm: 669683 1/2 Tablet(s) daily 01/19/2018 01/21/2018 Inactive Patient requests 90 days supply Singulair 10 mg tablet RxNorm: 447503 TAKE 1 TABLET BY MOUTH AT BEDTIME 01/18/2018 04/17/2018 Inactive Patient requests 90 days supply Singulair 10 mg tablet RxNorm: 637778 Tablet(s) PO 01/17/2018 01/17/2018 Inactive digoxin 125 mcg tablet RxNorm: 554777 1 TABLET(S) PO DAILY 01/03/2018 12/28/2018 Active Symbicort 160 mcg-4.5 mcg/actuation HFA aerosol inhaler RxNorm: 9403002 2 Puff(s) INH BID 12/14/2017 04/12/2018 Inactive please dispense an aerochamber for patient as well as her symbicort pantoprazole 40 mg tablet,delayed release RxNorm: 400990 1 Tablet(s) PO daily 12/14/2017 12/08/2018 Active cyclobenzaprine 5 mg tablet RxNorm: 883054 Tablet(s) 1/2 TABLET(S) PO Q8 NEEDED MUSCLE SPASMS 12/14/2017 08/05/2018 Inactive ProAir RespiClick 90 mcg/actuation breath activated RxNorm: 8231744 1-2 INH QID as needed shortness of breath 12/14/2017 07/11/2018 Inactive cyclobenzaprine 5 mg tablet RxNorm: 039317 1/2 TABLET(S) PO Q8 NEEDED MUSCLE SPASMS 12/08/2017 12/13/2017 Inactive betamethasone dipropionate 0.05 % topical ointment RxNorm: 583415 1 Application TOP TID use topically on the rectal tissue three times daily x 1 week then as needed 11/13/2017 No Stop Date Active Premarin 0.625 mg/gram vaginal cream RxNorm: 584342 1/2 GRAM(S) VAG TIW 11/13/2017 12/12/2017 Inactive cyclobenzaprine 5 mg tablet RxNorm: 640083 1/2 TABLET(S) PO Q8 NEEDED MUSCLE SPASMS 10/17/2017 12/07/2017 Inactive Vesicare 10 mg tablet RxNorm: 724521 1 Tablet(s) PO every other day 10/17/2017 04/14/2018 Inactive lisinopril 20 mg tablet RxNorm: 957447 1 TABLET(S) PO DAILY 10/02/2017 01/18/2018 Inactive Patient requests 90 days supply levothyroxine 75 mcg tablet RxNorm: 813744 1 TABLET(S) PO DAILY 09/25/2017 01/30/2018 Inactive spironolactone 25 mg tablet RxNorm: 614739 1 TABLET(S) PO DAILY 08/16/2017 03/13/2018 Inactive cyclobenzaprine 5 mg tablet RxNorm: 418439 1/2 TABLET(S) PO Q8 NEEDED MUSCLE SPASMS 08/16/2017 10/16/2017 Inactive Eliquis 2.5 mg tablet RxNorm: 8197441 TAKE 1 TABLET BY MOUTH TWICE DAILY 07/26/2017 01/21/2018 Inactive cyclobenzaprine 5 mg tablet RxNorm: 772718 1/2 Tablet(s) PO Q8 as needed muscle spasms 06/19/2017 08/15/2017 Inactive lisinopril 20 mg tablet RxNorm: 282345 1 TABLET(S) PO DAILY 06/12/2017 10/01/2017 Inactive metoprolol succinate ER 50 mg tablet,extended release 24 hr RxNorm: 854471 1 TABLET(S) PO DAILY 04/07/2017 01/01/2018 Inactive spironolactone 25 mg tablet RxNorm: 173698 1 Tablet(s) PO daily 03/27/2017 03/13/2018 Inactive acyclovir 800 mg tablet RxNorm: 385438 1 Tablet(s) PO TID 03/21/2017 03/30/2017 Inactive acyclovir 800 mg tablet RxNorm: 073133 1 Tablet(s) PO TID 03/21/2017 03/20/2017 Inactive levothyroxine 75 mcg tablet RxNorm: 917726 1 Tablet(s) PO daily 03/16/2017 09/11/2017 Inactive spironolactone 25 mg tablet RxNorm: 176700 1 TABLET(S) PO DAILY 02/09/2017 03/26/2017 Inactive lisinopril 20 mg tablet RxNorm: 394499 1 TABLET(S) PO DAILY 01/02/2017 05/31/2017 Inactive Zithromax Z-Claudio 250 mg tablet RxNorm: 804066 1 Tablet(s) PO UD 11/29/2016 12/03/2016 Inactive ZPACK Keflex 500 mg capsule RxNorm: 142897 1 Capsule(s) PO TID 11/23/2016 12/02/2016 Inactive guaifenesin 400 mg tablet RxNorm: 866059 1 Tablet(s) PO Q6 as needed 11/23/2016 11/27/2016 Inactive omeprazole 40 mg capsule,delayed release RxNorm: 551198 1 Capsule(s) PO QPM 11/02/2016 12/13/2017 Inactive digoxin 125 mcg tablet RxNorm: 685930 1 TABLET(S) PO DAILY 10/27/2016 07/23/2017 Inactive cyclobenzaprine 5 mg tablet RxNorm: 307794 1/2 Tablet(s) PO Q8 PRN 10/25/2016 06/18/2017 Inactive prn muscle spasms Augmentin 500 mg-125 mg tablet RxNorm: 690745 1 Tablet(s) PO BID 10/24/2016 11/02/2016 Inactive Lasix 20 mg tablet RxNorm: 950216 Tablet(s) PRN one to two times a week if needed 07/27/2016 No Stop Date Active Patient requests 90 days supply spironolactone 25 mg tablet RxNorm: 933013 1 Tablet(s) PO daily 07/27/2016 02/08/2017 Inactive Diflucan 150 mg tablet RxNorm: 342325 1 Tablet(s) PO daily 07/27/2016 08/02/2016 Inactive lisinopril 20 mg tablet RxNorm: 683540 1 Tablet(s) PO daily 07/12/2016 01/01/2017 Inactive Lasix 20 mg tablet RxNorm: 416705 1 TABLET(S) PO EVERY OTHER DAY EVERY OTHER DAY 06/10/2016 07/26/2016 Inactive Patient requests 90 days supply potassium chloride ER 10 mEq capsule,extended release RxNorm: 597116 1 CAPSULE(S) PO EVERY OTHER DAY 06/10/2016 07/26/2016 Inactive Patient requests 90 days supply potassium chloride ER 10 mEq capsule,extended release RxNorm: 224871 1 Capsule(s) PO every other day 06/09/2016 06/09/2016 Inactive Lasix 20 mg tablet RxNorm: 606169 1 Tablet(s) PO every other day every other day 06/09/2016 06/09/2016 Inactive levothyroxine 88 mcg tablet RxNorm: 212908 1 Tablet(s) PO daily 05/11/2016 11/06/2016 Inactive Premarin 0.625 mg/gram vaginal cream RxNorm: 050975 1/2 Gram(s) VAG TIW 03/24/2016 03/18/2017 Inactive metoprolol succinate ER 50 mg tablet,extended release 24 hr RxNorm: 239830 1 Tablet(s) PO daily 03/24/2016 03/18/2017 Inactive pantoprazole 40 mg tablet,delayed release RxNorm: 417202 1 Tablet(s) PO daily 02/08/2016 11/01/2016 Inactive betamethasone dipropionate 0.05 % topical ointment RxNorm: 613627 1 Application TOP TID use topically on the rectal tissue three times daily x 1 week then as needed 02/02/2016 11/12/2017 Inactive pantoprazole 40 mg tablet,delayed release RxNorm: 315479 1 Tablet(s) PO daily 2016 02/07/2016 Inactive alprazolam 0.25 mg tablet RxNorm: 777376 1 Tablet(s) PO Q6 as needed 12/04/2015 No Stop Date Active Vesicare 10 mg tablet RxNorm: 968058 1 Tablet(s) PO every other day 11/03/2015 10/16/2017 Inactive alprazolam 0.25 mg tablet RxNorm: 976152 1 Tablet(s) PO Q6 as needed 11/03/2015 12/03/2015 Inactive Premarin 0.625 mg/gram vaginal cream RxNorm: 636936 1/2 Gram(s) VAG TIW 11/03/2015 03/23/2016 Inactive levothyroxine 88 mcg tablet RxNorm: 801072 1 Tablet(s) PO daily 11/03/2015 05/10/2016 Inactive Diflucan 150 mg tablet RxNorm: 021096 1 Tablet(s) PO daily 10/19/2015 10/25/2015 Inactive cetirizine 10 mg chewable tablet RxNorm: 3340945 1 Tablet(s) PO daily 10/13/2015 11/11/2015 Inactive cetirizine 10 mg capsule RxNorm: 7735881 1 Capsule(s) PO daily 10/13/2015 11/11/2015 Inactive Vesicare 10 mg tablet RxNorm: 381847 1/2 TABLET(S) PO BID 09/21/2015 11/02/2015 Inactive betamethasone dipropionate 0.05 % topical ointment RxNorm: 443759 1 Application TOP TID use topically on the rectal tissue three times daily x 1 week then as needed 09/15/2015 02/01/2016 Inactive lisinopril 20 mg tablet RxNorm: 041896 1 Tablet(s) PO daily 09/01/2015 07/11/2016 Inactive digoxin 125 mcg tablet RxNorm: 372615 1 Tablet(s) PO daily 09/01/2015 08/25/2016 Inactive Augmentin 500 mg-125 mg tablet RxNorm: 313037 1 Tablet(s) PO TID 05/26/2015 06/04/2015 Inactive Pyridium 200 mg tablet RxNorm: 0253895 1 Tablet(s) PO TID 05/26/2015 05/27/2015 Inactive levothyroxine 88 mcg tablet RxNorm: 474641 1 Tablet(s) PO daily except 1/2 pill on monday and 05/07/2015 11/02/2015 Inactive digoxin 125 mcg tablet RxNorm: 449016 1 Tablet(s) PO daily 05/07/2015 08/31/2015 Inactive lisinopril 20 mg tablet RxNorm: 023374 1 TABLET(S) PO BID 04/13/2015 09/01/2015 Inactive Coumadin 1 mg tablet RxNorm: 967771 1 TABLET(S) PO DAILY 03/31/2015 08/31/2015 Inactive Coumadin 2 mg tablet RxNorm: 674126 4MG IN AM AND 1MG AT NIGHT TABLET(S) PO DAILY DIRECTED. 03/31/2015 08/31/2015 Inactive levothyroxine 88 mcg tablet RxNorm: 746809 1 Tablet(s) PO daily 03/23/2015 05/06/2015 Inactive alprazolam 0.25 mg tablet RxNorm: 612566 Tablet(s) PO 03/23/2015 04/06/2015 Inactive levothyroxine 88 mcg tablet RxNorm: 177494 1 Tablet(s) PO daily 01/28/2015 03/22/2015 Inactive levothyroxine 88 mcg tablet RxNorm: 171412 1 Tablet(s) PO daily 01/28/2015 01/27/2015 Inactive diltiazem ER 120 mg capsule,extended release RxNorm: 924791 1 Capsule(s) PO BID patient would like 4 months at a time 01/06/2015 09/28/2015 Inactive digoxin 125 mcg tablet RxNorm: 802902 Tablet(s) 1 TABLET(S) PO DAILY 12/24/2014 12/23/2014 Inactive pt will be paying [employer]omares (On $4 list)Patient requests 90 days supply digoxin 125 mcg tablet RxNorm: 030038 Tablet(s) 1 TABLET(S) PO DAILY M W F Sat and 2 tabs on T TH 12/24/2014 05/06/2015 Inactive pt will be paying [employer]omares (On $4 list)Patient requests 90 days supply dicyclomine 20 mg tablet RxNorm: 040404 1 Tablet(s) PO daily 11/17/2014 08/31/2015 Inactive one ac dinner and up to tid prn levothyroxine 88 mcg tablet RxNorm: 571484 1 Tablet(s) PO daily 11/03/2014 01/27/2015 Inactive Premarin 0.625 mg/gram vaginal cream RxNorm: 584366 1 APPLICATION VAG 1 APPLICATOR PER VAGINA 3 TIMES PER WEEK 11/03/2014 07/30/2015 Inactive digoxin 125 mcg tablet RxNorm: 293299 1 TABLET(S) PO DAILY 09/29/2014 12/23/2014 Inactive pt will be paying [employer]oma[employer] (On $4 list)Patient requests 90 days supply digoxin 125 mcg tablet RxNorm: 339598 1 TABLET(S) PO DAILY 07/11/2014 04/06/2015 Inactive Vesicare 10 mg tablet RxNorm: 478965 1/2 Tablet(s) PO BID 05/20/2014 05/14/2015 Inactive Levaquin 500 mg tablet RxNorm: 602225 1 Tablet(s) PO daily 05/06/2014 05/08/2014 Inactive take probiotic BID while on ABT Levaquin 500 mg tablet RxNorm: 893310 1 Tablet(s) PO daily 05/02/2014 05/05/2014 Inactive take probiotic BID while on ABT diltiazem ER 120 mg capsule,extended release RxNorm: 739339 1 Capsule(s) PO BID patient would like 4 months at a time 04/29/2014 2015 Inactive Vesicare 10 mg tablet RxNorm: 512922 1/2 Tablet(s) PO BID 04/29/2014 05/19/2014 Inactive lisinopril 20 mg tablet RxNorm: 367631 1 Tablet(s) PO BID 03/20/2014 03/14/2015 Inactive diltiazem 90 mg tablet RxNorm: 753405 1/2 TABLET(S) PO QPM 03/04/2014 04/28/2014 Inactive also 180 q am diltiazem ER 120 mg capsule,extended release RxNorm: 509724 1 Capsule(s) PO daily patient would like 4 months at a time 01/29/2014 04/28/2014 Inactive Vesicare 10 mg tablet RxNorm: 392798 1 Tablet(s) PO QHS 01/14/2014 04/28/2014 Inactive Coumadin 2 mg tablet RxNorm: 463536 4mg in AM and 1mg at night Tablet(s) PO daily as directed. 12/25/2013 03/30/2015 Inactive Metanx 3 mg-35 mg-2 mg tablet RxNorm: 1 Tablet(s) PO daily 12/25/2013 11/02/2015 Inactive digoxin 125 mcg tablet RxNorm: 340274 1 Tablet(s) PO daily 12/25/2013 09/28/2014 Inactive pt will be paying [employer]oma[employer] (On $4 list) Coumadin 2 mg tablet RxNorm: 693401 7.5 wed 5mg other Tablet(s) PO as directed. 12/03/2013 12/24/2013 Inactive omeprazole 20 mg tablet,delayed release RxNorm: 587336 1 Tablet(s) PO BID 11/27/2013 04/28/2014 Inactive Coumadin 2 mg tablet RxNorm: 994850 5 mg daily Tablet(s) PO as directed. 11/26/2013 12/02/2013 Inactive 5 mg daily Xanax 0.25 mg tablet RxNorm: 090769 1 Tablet(s) PO Q6 PRN 11/11/2013 12/25/2013 Inactive alprazolam 0.25 mg tablet RxNorm: 241600 tablet oral 11/11/2013 03/22/2015 Inactive sucralfate 1 gram tablet RxNorm: 136121 1 Tablet(s) PO AC & HS 11/04/2013 11/03/2013 Inactive sucralfate 1 gram tablet RxNorm: 032115 1 Tablet(s) PO AC & HS 11/04/2013 01/02/2014 Inactive Synthroid 100 mcg tablet RxNorm: 957148 1 Tablet(s) PO daily 10/31/2013 10/25/2014 Inactive Synthroid 100 mcg tablet RxNorm: 151461 1 Tablet(s) PO daily 09/30/2013 10/29/2013 Inactive Vesicare 10 mg tablet RxNorm: 938239 1 Tablet(s) PO QHS 09/30/2013 01/13/2014 Inactive Lotemax 0.5 % eye ointment RxNorm: 2014126 ointment opht 09/06/2013 12/10/2013 Inactive levothyroxine 100 mcg tablet RxNorm: 392328 tablet oral 09/05/2013 11/02/2014 Inactive Synthroid 100 mcg tablet RxNorm: 290911 1 Tablet(s) PO daily 09/05/2013 09/29/2013 Inactive Prolia 60 mg/mL Sub-Q Syringe RxNorm: 956333 1 Milliliter(s) SQ 06/25/2013 11/02/2015 Inactive dicyclomine 20 mg tablet RxNorm: 559005 1 Tablet(s) PO daily 06/24/2013 06/18/2014 Inactive one ac dinner and up to tid prn omeprazole 20 mg tablet,delayed release RxNorm: 244647 1 Tablet(s) PO BID 06/24/2013 11/26/2013 Inactive Cipro 500 mg tablet RxNorm: 637482 1 Tablet(s) PO BID 06/20/2013 06/26/2013 Inactive diltiazem ER 120 mg capsule,extended release RxNorm: 283124 1 Capsule(s) PO daily patient would like 4 months at a time 06/03/2013 01/28/2014 Inactive Coumadin 2 mg tablet RxNorm: 991842 as directed Tablet(s) PO as directed. 05/29/2013 11/25/2013 Inactive 5 mg daily Synthroid 88 mcg tablet RxNorm: 807147 1 Tablet(s) PO daily 04/24/2013 04/23/2013 Inactive Synthroid 88 mcg tablet RxNorm: 315129 1 Tablet(s) PO daily 04/24/2013 07/28/2013 Inactive Premarin 0.625 mg/gram vaginal cream RxNorm: 490587 1 Application VAG 1 applicator per vagina 3 times per week 04/23/2013 04/17/2014 Inactive Influenza Virus Vaccine 0.5 mL RxNorm: IM 04/23/2013 04/23/2013 Inactive digoxin 125 mcg tablet RxNorm: 772854 1 Tablet(s) PO daily 02/20/2013 04/20/2013 Inactive pt will be paying palomares (On $4 list) Digox 125 mcg tablet RxNorm: 3319754 tablet oral 02/13/2013 03/20/2014 Inactive digoxin 125 mcg tablet RxNorm: 172720 1 Tablet(s) PO daily 02/13/2013 02/19/2013 Inactive diltiazem 90 mg tablet RxNorm: 715756 1/2 Tablet(s) PO QPM 02/13/2013 02/07/2014 Inactive also 180 q am Levoxyl 75 mcg tablet RxNorm: 281982 1 Tablet(s) PO 01/16/2013 04/23/2013 Inactive Coumadin 2 mg tablet RxNorm: 287635 6mg daily except 3mg on mon and mon Tablet(s) PO 01/15/2013 05/28/2013 Inactive 5 mg daily Coumadin 2 mg tablet RxNorm: 570829 6mg daily Tablet(s) PO 12/21/2012 01/14/2013 Inactive 5 mg daily silver sulfadiazine 1 % Topical Cream RxNorm: 535316 TOP apply to affected area with each dressing change 12/19/2012 12/25/2013 Inactive cephalexin 500 mg tablet RxNorm: 619858 1 Tablet(s) PO TID 12/11/2012 12/17/2012 Inactive digoxin 125 mcg tablet RxNorm: 961085 1 Tablet(s) PO daily 10/30/2012 02/12/2013 Inactive digoxin 125 mcg tablet RxNorm: 567370 2 tab tue thurs one other days Tablet(s) PO daily 10/23/2012 10/29/2012 Inactive lisinopril 10 mg tablet RxNorm: 428291 1 Tablet(s) PO daily 10/17/2012 08/14/2013 Inactive Cipro 500 mg tablet RxNorm: 114200 1 Tablet(s) PO BID 09/13/2012 09/19/2012 Inactive Coumadin 1 mg tablet RxNorm: 755305 1 Tablet(s) PO daily 09/03/2012 09/02/2012 Inactive Coumadin 1 mg tablet RxNorm: 211251 1 Tablet(s) PO daily 09/03/2012 12/21/2012 Inactive Coumadin 2 mg tablet RxNorm: 874177 Tablet(s) PO 07/25/2012 12/20/2012 Inactive 5 mg daily digoxin 125 mcg tablet RxNorm: 999212 1 Tablet(s) PO daily 06/28/2012 10/22/2012 Inactive Coumadin 2 mg tablet RxNorm: 244441 Tablet(s) PO 06/27/2012 07/24/2012 Inactive 5mg daily except 4mg on monday Coumadin 2 mg tablet RxNorm: 402810 Tablet(s) PO 06/19/2012 06/26/2012 Inactive 5mg tue wed thur sat sun4mg mon frid(has 2mg and 1 mg tab) digoxin 125 mcg tablet RxNorm: 964315 1 Tablet(s) PO daily 05/29/2012 06/27/2012 Inactive Coumadin 2 mg tablet RxNorm: 277594 Tablet(s) PO 05/15/2012 06/18/2012 Inactive 5mg tue thur sat sun4mg mon frid(has 2mg and 1 mg tab) Coumadin 2 mg tablet RxNorm: 572900 Tablet(s) PO 04/25/2012 05/14/2012 Inactive 5mg tue thru sat4mg mon frid sun(has 2mg and 1 mg tab) Metanx 3 mg-35 mg-2 mg tablet RxNorm: 1 Tablet(s) PO BID 04/18/2012 12/24/2013 Inactive dicyclomine 20 mg tablet RxNorm: 305911 1 Tablet(s) PO 04/18/2012 06/23/2013 Inactive one ac dinner and up to tid prn digoxin 125 mcg tablet RxNorm: 840214 Tablet(s) PO daily except .25 on Tuesdays and 04/09/2012 05/28/2012 Inactive omeprazole 20 mg tablet,delayed release RxNorm: 718841 1 Tablet(s) PO BID 04/09/2012 04/03/2013 Inactive digoxin 125 mcg tablet RxNorm: 722767 1 Tablet(s) PO UD daily except none on Tuesdays and 03/13/2012 04/08/2012 Inactive Premarin 0.625 mg/gram Vaginal Cream RxNorm: 970500 1 Application VAG 1 applicator per vagina 3 times per week 02/20/2012 02/13/2013 Inactive omeprazole 20 mg tablet,delayed release RxNorm: 253472 1 Tablet(s) PO BID 02/13/2012 04/08/2012 Inactive Vesicare 10 mg tablet RxNorm: 008753 1 Tablet(s) PO QHS 02/13/2012 02/06/2013 Inactive Diflucan 150 mg tablet RxNorm: 213677 1 Tablet(s) PO daily 02/13/2012 02/19/2012 Inactive omeprazole 20 mg tablet,delayed release RxNorm: 655055 1 Tablet(s) PO BID 01/06/2012 02/12/2012 Inactive Calcium 600 + D(3) 600 mg (1,500)-200 unit Tab RxNorm: 499752 2 Tablet(s) PO BID 01/06/2012 08/31/2015 Inactive diltiazem 90 mg tablet RxNorm: 947805 1/2 Tablet(s) PO QPM 12/26/2011 02/12/2013 Inactive also 180 q am diltiazem ER 180 mg Cap RxNorm: 012971 1 Capsule(s) PO QAM 12/26/2011 04/08/2012 Inactive 45mg q hs Flagyl 500 mg Tab RxNorm: 307153 1 Tablet(s) PO BID 12/14/2011 12/20/2011 Inactive dicyclomine 10 mg Cap RxNorm: 389172 1 Capsule(s) PO AC & HS 12/01/2011 12/25/2011 Inactive Levaquin 500 mg Tab RxNorm: 956781 1 Tablet(s) PO daily 11/23/2011 11/29/2011 Inactive Rocephin 500 mg Solution for Injection RxNorm: 2148532 Inj 11/23/2011 11/23/2011 Inactive acyclovir 400 mg Tab RxNorm: 254473 1 Tablet(s) PO QID 11/10/2011 11/19/2011 Inactive acyclovir 400 mg Tab RxNorm: 596075 1 Tablet(s) PO QID 11/10/2011 11/09/2011 Inactive lisinopril 20 mg Tab RxNorm: 502027 1 Tablet(s) PO daily 10/03/2011 11/27/2011 Inactive lisinopril 20 mg Tab RxNorm: 729935 1 Tablet(s) PO daily 08/08/2011 10/02/2011 Inactive Reclast 5 mg/100 mL IV RxNorm: 543414 Milliliter(s) IV Yearly 06/08/2011 01/16/[address] Hansen manages Rocephin 500 mg Solution for Injection RxNorm: 0241789 1 Milliliter(s) Inj 03/04/2011 08/08/2011 Inactive Ceftin 500 mg Tab RxNorm: 575259 1 Tablet(s) PO BID 03/04/2011 08/08/2011 Inactive Vitamin D3 1,000 unit tablet RxNorm: 328673 2 Tablet(s) PO daily No Start Date Active Stool Softener 100 mg tablet RxNorm: 8165240 2 Tablet(s) PO QHS No Start Date Active Beano tablet RxNorm: 2-3 Tablet(s) PO as needed No Start Date Active Probiotic Pearls 15 mg (1 billion cell) capsule,delayed release RxNorm: 1 Capsule(s) PO daily No Start Date Active Lipitor 10 mg tablet RxNorm: 132617 1 Tablet(s) PO daily No Start Date Active Miralax 17 gram oral powder packet RxNorm: 821611 1/2 packet PO QHS No Start Date Active multivitamin Tab RxNorm: 1 Tablet(s) PO daily No Start Date Active Tylenol Extra Strength 500 mg tablet RxNorm: 732691 2 Tablet(s) PO as needed No Start Date Active Combigan 0.2 %-0.5 % eye drops RxNorm: 905173 1 Drop(s) OPH BID No Start Date Active 1 drop twice daily left eye Lexapro 5 mg tablet RxNorm: 371346 1 Tablet(s) PO daily No Start Date Active Tatiana Allergy 180 mg tablet RxNorm: 403217 1 Tablet(s) PO daily No Start Date Active Lotemax 0.5 % eye drops,suspension RxNorm: 889224 1 Drop(s) OPH right eye BID No Start Date Active Levoxyl 50 mcg tablet RxNorm: 329761 1 Tablet(s) PO daily No Start Date 01/15/2013 Inactive lisinopril-hydrochlorothiazide 20 mg-25 mg Tab RxNorm: 047757 1 Tablet(s) PO daily No Start Date 08/07/2011 Inactive Metanx 3 mg-35 mg-2 mg tablet RxNorm: 1 Tablet(s) PO daily No Start Date 04/17/2012 Inactive diltiazem CD 120 mg capsule,extended release 24 hr RxNorm: 374493 1 Capsule(s) PO daily No Start Date 09/28/2015 Inactive lisinopril 20 mg tablet RxNorm: 683397 Tablet(s) PO No Start Date Active Lumigan 0.01 % Eye Drops RxNorm: 2778344 1 Drop(s) OPH daily Left eye No Start Date 12/10/2013 Inactive prednisolone acetate 1 % Eye Drops, Susp RxNorm: 0608722 1 Drop(s) OPH BID 1 drop right eye am and hs No Start Date 11/02/2015 Inactive Eliquis 5 mg tablet RxNorm: 1008045 1 Tablet(s) PO BID No Start Date 06/08/2016 Inactive potassium gluconate (bulk) Misc RxNorm: Miscellaneous No Start Date 12/25/2011 Inactive Calcium 600 + D(3) 600 mg (1,500)-200 unit Tab RxNorm: 600957 3 Tablet(s) PO daily No Start Date 2012 Inactive Zyrtec 10 mg tablet RxNorm: 2236150 1 Tablet(s) PO daily No Start Date 08/02/2016 Inactive Synthroid 100 mcg tablet RxNorm: 563317 1 Tablet(s) PO daily No Start Date 09/04/2013 Inactive metoprolol succinate ER 50 mg tablet,extended release 24 hr RxNorm: 376656 1 Tablet(s) PO daily No Start Date 03/23/2016 Inactive Carafate 100 mg/mL oral suspension RxNorm: 236426 2 Teaspoon(s) PO as needed with reflux symptoms No Start Date 06/03/2018 Inactive Metanx 3 mg-35 mg-2 mg tablet RxNorm: 1 Tablet(s) PO daily 2pm No Start Date 11/02/2015 Inactive Lexapro 5 mg tablet RxNorm: 649339 1 Tablet(s) PO daily No Start Date 08/18/2015 Inactive Iron (dried) oral RxNorm: 59931 oral No Start Date 11/02/2015 Inactive timolol 0.5 % Eye Drops RxNorm: 512675 1 Drop(s) OPH daily left eye No Start Date 12/18/2013 Inactive multivitamin Cap RxNorm: 1 Capsule(s) PO daily No Start Date 12/25/2011 Inactive dicyclomine 10 mg Cap RxNorm: 403803 2 Capsule(s) PO daily No Start Date 11/30/2011 Inactive silver sulfadiazine 1 % Topical Cream RxNorm: 810124 TOP apply to affected area with each dressing change No Start Date 12/18/2012 Inactive magnesium oxide 400 mg Tab RxNorm: 477945 1 Tablet(s) PO daily No Start Date 11/02/2015 Inactive Pradaxa 75 mg Cap RxNorm: 6101987 1 Capsule(s) PO BID No Start Date 04/09/2012 Inactive magnesium oxide 400 mg Tab RxNorm: 052693 2 Tablet(s) PO daily magnesium plus zinc No Start Date 12/25/2011 Inactive biotin 1000 mg RxNorm: 1 PO daily No Start Date 12/25/2011 Inactive Synthroid 50 mcg Tab RxNorm: 939989 Tablet(s) PO No Start Date 12/25/2011 Inactive diltiazem ER 180 mg Cap RxNorm: 054742 1 Capsule(s) PO daily No Start Date 12/25/2011 Inactive 1 D 3 1000 iu Oral RxNorm: Oral No Start Date 12/25/2011 Inactive Coumadin 2 mg tablet RxNorm: 680643 Tablet(s) PO No Start Date 04/24/2012 Inactive 5mg tue ouut1gy mon sat sun(has 2mg and 1 mg tab) dicyclomine 20 mg tablet RxNorm: 258298 Tablet(s) PO No Start Date 04/17/2012 Inactive one ac dinner and up to tid prn lactobacillus acidophilus tablet RxNorm: 1 Tablet(s) PO daily No Start Date 11/03/2015 Inactive Eliquis 2.5 mg tablet RxNorm: 5379045 1 Tablet(s) PO BID No Start Date 07/25/2017 Inactive Levoxyl 75 mcg Tab RxNorm: 372314 1 Tablet(s) PO daily No Start Date 10/02/2011 Inactive digoxin 125 mcg tablet RxNorm: 804422 1 Tablet(s) PO daily No Start Date 03/12/2012 Inactive pantoprazole 40 mg tablet,delayed release RxNorm: 209457 1 Tablet(s) PO BID No Start Date 01/04/2016 Inactive cyclobenzaprine 5 mg tablet RxNorm: 690682 1/2 Tablet(s) PO Q8 PRN No Start Date 10/24/2016 Inactive diltiazem 90 mg Tab RxNorm: 272199 1/2 Tablet(s) PO QPM No Start Date 12/25/2011 Inactive Mirapex 1 mg Tab RxNorm: 262693 1 Tablet(s) PO QHS No Start Date 12/25/2011 Inactive Xanax 0.25 mg tablet RxNorm: 358098 1 Tablet(s) PO Q6 PRN No Start Date 11/10/2013 Inactive Premarin 0.625 mg/gram Vaginal Cream RxNorm: 465504 1 Application VAG 1 applicator per vagina 3 times per week No Start Date 02/19/2012 Inactive Synthroid 75 mcg Tab RxNorm: 882301 1 Tablet(s) PO daily No Start Date 04/17/2012 Inactive lisinopril 40 mg Tab RxNorm: 670108 1 Tablet(s) PO daily No Start Date 12/25/2011 Inactive Glucosamine Chondroitin Complex Advanced [id number]-1.65mg Tab RxNorm: 2 Tablet(s) PO daily No Start Date 08/08/2011 Inactive famotidine 20 mg tablet RxNorm: 216473 1 Tablet(s) PO QAM No Start Date 11/02/2015 Inactive cranberry extract 250 mg Tab RxNorm: 478214 2 Tablet(s) PO daily No Start Date 08/08/2011 Inactive Vitamin D3 1,000 unit capsule RxNorm: 078974 1 Capsule(s) PO daily No Start Date 08/31/2015 Inactive aspirin 81 mg Tab, Delayed Release RxNorm: 858066 1 Tablet(s) PO daily No Start Date 08/31/2015 Inactive diltiazem ER 120 mg capsule,extended release RxNorm: 247570 1 Capsule(s) PO daily patient would like 4 months at a time No Start Date 06/02/2013 Inactive omeprazole 20 mg Tab, Delayed Release RxNorm: 395843 2 Tablet(s) PO QHS No Start Date 2012 Inactive lisinopril 10 mg tablet RxNorm: 620267 1/2 Tablet(s) PO daily No Start Date 10/16/2012 Inactive Pred Forte 1 % Eye Drops RxNorm: 490888 1 Drop(s) OPH daily right eye No Start Date 12/25/2013 Inactive calcium carbonate 400 mg Chewable Tab RxNorm: 026359 1 Tablet(s) PO daily No Start Date 08/08/2011 Inactive Vesicare 10 mg tablet RxNorm: 507821 1 Tablet(s) PO QHS No Start Date 02/12/2012 Inactive Symbicort 160 mcg-4.5 mcg/actuation HFA aerosol inhaler RxNorm: 4855440 2 Puff(s) INH BID No Start Date 12/13/2017 Inactive potassium 99 mg tablet RxNorm: 1 Tablet(s) PO QPM No Start Date 12/25/2013 Inactive timolol 0.25 % Eye Drops RxNorm: 497854 1 Drop(s) OPH daily Left eye No Start Date 04/17/2012 Inactive diltiazem ER 90 mg capsule,extended release 12 hr RxNorm: 340991 1/2 Capsule(s) PO QPM No Start Date 04/28/2014 Inactive cyclobenzaprine 5 mg Tab RxNorm: 024058 1/2-1 Tablet(s) PO Q8 PRN No Start Date 12/25/2011 Inactive 1/2 - 1 tab q 8hrs prn muscle spasms Medication Administered Medication Codes Instructions Start Date Status Influenza Virus Vaccine 0.5 mL RxNorm: 04/23/2013 No longer Active Rocephin 500 mg Solution for Injection RxNorm: 5428889 11/23/2011 No longer Active Immunizations Vaccine Codes [...] 04/18/2012 completed Assessments Condition Codes Effective Dates Other allergic rhinitis ICD-10: J30.89 ICD-9: 477.8 09/12/2018 Cough ICD-10: R05 ICD-9: 786.2 09/12/2018 Acute laryngopharyngitis ICD-10: J06.0 ICD-9: 465.0 09/12/2018 Raynaud's syndrome without gangrene ICD-10: I73.00 ICD-9: 443.0 09/12/2018 Chronic atrial fibrillation ICD-10: I48.2 ICD-9: [...] hypertension ICD-10: I10 ICD-9: 401.9 01/31/2018 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 ICD-10: Z79.899 ICD-9: V58.83 [...] hemorrhoids ICD-10: K64.0 ICD-9: 455.6 03/24/2016 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 ICD-10: Z79.899 ICD-9: V58.69 [...] Reason For Visit Effective Dates Notes cough 09/12/2018 skin lesion 08/14/2018 skin lesion [...] Ord62 ANION GAP 12 09/25/2018 Comp Metabolic Oqn360 NA 130 mEq/L 09/12/2018 Comp Metabolic Mmm468 K 4.2 mEq/L 09/12/2018 Comp Metabolic Rml239 CL 98 mEq/L 09/12/2018 Comp Metabolic Kyb879 CO2 23.0 mEq/L 09/12/2018 Comp Metabolic Hci171 ANION GAP 13 09/12/2018 Comp Metabolic Wuh330 GLUCOSE 129 mg/dL 09/12/2018 Comp Metabolic Weq562 Creat 1.0 mg/dL 09/12/2018 Comp Metabolic Dor284 eGFR 58 ml/min/1.73m2 09/12/2018 Comp Metabolic Wdi527 BUN 28 mg/dL 09/12/2018 Comp Metabolic Yme420 B/C Ratio 28.9 Ratio 09/12/2018 Comp Metabolic Qch983 CALCIUM 9.1 mg/dL 09/12/2018 Comp Metabolic Fgr485 ALK PHOS 59 U/L 09/12/2018 Comp Metabolic Eyn234 AST(SGOT) 21 U/L 09/12/2018 Comp Metabolic Jgo158 ALT(SGPT) 19 U/L 09/12/2018 Comp Metabolic Hdo351 BILI T 0.8 mg/dL 09/12/2018 Comp Metabolic Qag690 ALBUMIN 3.9 g/dL 09/12/2018 Comp Metabolic Sps517 TPRO 6.5 g/dL 09/12/2018 Comp Metabolic Wni358 GLOB 2.6 g/dL 09/12/2018 Comp Metabolic Whl713 A/G Ratio 1.5 Ratio 09/12/2018 Comp Metabolic Ngb612 Osmo 268 mOsmo 09/12/2018 Tsh Ord6 TSH (3rd IS) 12.84 uIU/mL 09/12/2018 Influenza A+B Nzv172 Influ A+B Negative 09/12/2018 Cbc With Differential [...] 12.3 % 09/12/2018 Cbc With Differential Ord2 [place]% 12.0 % 09/12/2018 Cbc With Differential Ord2 [...] 0.85 K/ul 09/12/2018 Cbc With Differential Ord2 [place] ABS# 0.8 K/ul 09/12/2018 Cbc With Differential Ord2 Eos ABS# 0.1 K/ul 09/12/2018 Cbc With Differential Ord2 Baso ABS# 0.0 K/ul 09/12/2018 Free T4 Kul269 FREE T4 1.10 ng/dL 09/12/2018 Free T4 Izt656 FREE T4 1.19 ng/dL 05/08/2018 Digoxin Ord9 DIGOXIN 0.6 NG/ML 05/08/2018 Tsh Ord6 TSH (3rd IS) 10.58 uIU/mL 05/08/2018 Tsh Ord6 TSH (3rd IS) 1.07 uIU/mL 01/31/2018 Free T4 Uho385 FREE T4 1.63 ng/dL 01/31/2018 Digoxin Ord9 DIGOXIN 0.8 NG/ML 01/31/2018 C RAP A SC [id number] Strep A Negative 11/21/2016 Thyroid Antibodies 914114 THYROGLOBULIN ANTIBODY . 11/04/2016 Thyroid Antibodies 678647 THYROGLOBULIN ANTIBODY 919 IU/mL 11/04/2016 Thyroid Antibodies 663072 THYROID PEROXIDASE (TPO) AB . 11/04/2016 Thyroid Antibodies 318974 THYROID PEROXIDASE (TPO) AB 10 IU/mL 11/04/2016 Total T3 Ord42 TT3 0.64 ng/ml 11/03/2016 Free T4 Oay150 FREE T4 1.39 ng/dL 11/02/2016 Tsh Ord6 [...] Differential Ord2 RDW 13.8 % 05/26/2015 Pt Yth3327 PT 25.0 seconds 05/26/2015 Pt Wap6214 INR 2.4 05/26/2015 Pt Ben5393 Low Intensity - 1.5-2.0 05/26/2015 Pt Frk4529 Mod intensity - 2.0-3.0 05/26/2015 Pt Ttk8855 Hi intensity - 3.0-4.0 05/26/2015 Uric Acid [...] Digoxin Ord9 DIGOXIN 0.6 NG/ML 05/06/2015 Pt Fbu5408 PT 23.3 seconds 05/06/2015 Pt Fnq1081 INR 2.1 05/06/2015 Pt Wcn7941 Low Intensity - 1.5-2.0 05/06/2015 Pt Wkz8124 Mod intensity - 2.0-3.0 05/06/2015 Pt Hmx5714 Hi intensity - 3.0-4.0 05/06/2015 Free T4 Irb597 FREE T4 1.65 ng/dL 05/06/2015 Comp Metabolic Ato142 NA 132 mEq/L 05/06/2015 Comp Metabolic Rdr466 K 4.1 mEq/L 05/06/2015 Comp Metabolic Oei670 CL 98 mEq/L 05/06/2015 Comp Metabolic Sui800 CO2 27.0 mEq/L 05/06/2015 Comp Metabolic Yld978 ANION GAP 11 05/06/2015 Comp Metabolic Gqc712 GLUCOSE 71 mg/dL 05/06/2015 Comp Metabolic Qso805 Creat 0.7 mg/dL 05/06/2015 Comp Metabolic Xql124 eGFR 82 ml/min/1.73m2 05/06/2015 Comp Metabolic Jpj252 BUN 16 mg/dL 05/06/2015 Comp Metabolic Agv715 B/C Ratio 22.2 Ratio 05/06/2015 Comp Metabolic Ksd107 CALCIUM 9.4 mg/dL 05/06/2015 Comp Metabolic Xsy931 ALK PHOS 60 U/L 05/06/2015 Comp Metabolic Xmy598 AST(SGOT) 22 U/L 05/06/2015 Comp Metabolic Utr800 ALT(SGPT) 24 U/L 05/06/2015 Comp Metabolic Meo907 BILI T 0.8 mg/dL 05/06/2015 Comp Metabolic Peq153 ALBUMIN 4.3 g/dL 05/06/2015 Comp Metabolic Wvz616 TPRO 7.6 g/dL 05/06/2015 Comp Metabolic Xxs979 GLOB 3.3 g/dL 05/06/2015 Comp Metabolic Zfa963 A/G Ratio 1.3 Ratio 05/06/2015 Comp Metabolic Zeu400 Osmo 264 mOsmo 05/06/2015 DIGOXIN 2006133 DIGOXIN 1.1 NG/ML 05/15/2013 PT/MC 5145149 PRO TIME 21.7 SEC 05/15/2013 PT/MC 7511511 INR MCMC 2.0 05/15/2013 CHEM 14 4428605 AST 24 U/L 04/23/2013 CHEM 14 8943512 ALT 31 IU/L 04/23/2013 CHEM 14 5198548 BUN 13 MG/DL 04/23/2013 CHEM 14 4794224 ALBUMIN 4.1 GM/DL 04/23/2013 CHEM 14 7959623 CHLORIDE 103 MMOL/L 04/23/2013 CHEM 14 4901631 BILI TOT 0.5 MG/DL 04/23/2013 CHEM 14 8503544 ALK PHOS 44 U/L 04/23/2013 CHEM 14 8302429 SODIUM 137 MMOL/L 04/23/2013 CHEM 14 4513614 CREATININE 0.61 MG/DL 04/23/2013 CHEM 14 4083677 CALCIUM 9.5 MG/DL 04/23/2013 CHEM 14 0619439 POTASSIUM 4.0 MMOL/L 04/23/2013 CHEM 14 6640832 PROT TOT 6.6 GM/DL 04/23/2013 CHEM 14 9697878 GLUCOSE 99 MG/DL 04/23/2013 CHEM 14 9730730 BICARB 27 MMOL/L 04/23/2013 CHEM 14 0192695 ANION GAP 7 MEQ/L 04/23/2013 GFR CALC 1359577 GFR AA >60 ML/MIN 04/23/2013 GFR CALC 8070445 GFR NON-AA >60 ML/MIN 04/23/2013 TSH 6826125 TSH 4.204 uIU/ML 04/23/2013 CBC 8055958 WBC 6.7 10e9/L 04/23/2013 CBC 1071358 RBC 4.19 10e12/L 04/23/2013 CBC 4167404 HGB 13.2 g/dL 04/23/2013 CBC 9714392 HCT DET 39.2 % 04/23/2013 CBC 7453047 MCV 93.6 fL 04/23/2013 CBC 2961622 MCH 31.5 pg 04/23/2013 CBC 2737579 MCHC 33.7 g/dL 04/23/2013 CBC 0167052 PLT 202 10e9/L 04/23/2013 CBC 9252039 MPV 11.4 fL 04/23/2013 CBC 0685730 YANIRA % 70.5 % 04/23/2013 CBC 0108657 LY % 19.6 % 04/23/2013 CBC 3385532 MON % 8.2 % 04/23/2013 CBC 6151943 EOS % 1.6 % 04/23/2013 CBC 6144399 BASO % 0.1 % 04/23/2013 CBC 8937865 RDW 13.7 % 04/23/2013 CBC 5800409 ABS YANIRA 4.72 10e9/L 04/23/2013 CBC 1250813 ABS LYMPH 1.31 10e9/L 04/23/2013 CBC 0117806 ABS MONO 0.55 10e9/L 04/23/2013 CBC 8011678 ABS EOS 0.11 10e9/L 04/23/2013 CBC 7258745 ABS BASO 0.01 10e9/L 04/23/2013 CBC 4291352 RDW-SD 45.7 fL 04/23/2013 PT/MC 8413520 PRO TIME 13.4 SEC 12/17/2012 PT/MC 0786156 INR MCMC 1.0 12/17/2012 PT/MC 8853796 PRO TIME 16.6 SEC 12/14/2012 PT/MC 8120912 INR MCMC 1.4 12/14/2012 PT/MC 4558091 PRO TIME 27.2 SEC 12/11/2012 PT/MC 3500745 INR MCMC 2.6 12/11/2012 DIGOXIN 3053648 DIGOXIN 2.1 NG/ML 03/08/2012 GFR CALC 7130200 GFR AA >60 ML/MIN 03/08/2012 GFR CALC 7785734 GFR NON-AA >60 ML/MIN 03/08/2012 CHEM 14 3136677 AST 16 U/L 03/08/2012 CHEM 14 0942457 ALT 14 IU/L 03/08/2012 CHEM 14 5672040 BUN 10 MG/DL 03/08/2012 CHEM 14 3319206 ALBUMIN 4.2 GM/DL 03/08/2012 CHEM 14 1026444 CHLORIDE 100 MMOL/L 03/08/2012 CHEM 14 4352254 BILI TOT 0.5 MG/DL 03/08/2012 CHEM 14 9805445 ALK PHOS 59 U/L 03/08/2012 CHEM 14 0738856 SODIUM 136 MMOL/L 03/08/2012 CHEM 14 8427251 CREATININE 0.65 MG/DL 03/08/2012 CHEM 14 3841132 CALCIUM 9.4 MG/DL 03/08/2012 CHEM 14 5167025 POTASSIUM 3.9 MMOL/L 03/08/2012 CHEM 14 5152367 PROT TOT 6.7 GM/DL 03/08/2012 CHEM 14 2584766 GLUCOSE 90 MG/DL 03/08/2012 CHEM 14 9253536 BICARB 30 MMOL/L 03/08/2012 CHEM 14 9109729 ANION GAP 6 MEQ/L 03/08/2012 CHEM 14 4068112 AST 16 U/L 11/23/2011 CHEM 14 2843823 ALT 14 IU/L 11/23/2011 CHEM 14 0838264 BUN 11 MG/DL 11/23/2011 CHEM 14 7824486 ALBUMIN 4.1 GM/DL 11/23/2011 CHEM 14 1668446 CHLORIDE 100 MMOL/L 11/23/2011 CHEM 14 6432027 BILI TOT 0.5 MG/DL 11/23/2011 CHEM 14 7768908 ALK PHOS 50 U/L 11/23/2011 CHEM 14 9366470 SODIUM 135 MMOL/L 11/23/2011 CHEM 14 3892856 CREATININE 0.57 MG/DL 11/23/2011 CHEM 14 3860717 CALCIUM 9.1 MG/DL 11/23/2011 CHEM 14 3637771 POTASSIUM 4.5 MMOL/L 11/23/2011 CHEM 14 9058253 PROT TOT 6.5 GM/DL 11/23/2011 CHEM 14 8630937 GLUCOSE 89 MG/DL 11/23/2011 CHEM 14 8280352 BICARB 28 MMOL/L 11/23/2011 CHEM 14 1826565 ANION GAP 7 MEQ/L 11/23/2011 GFR CALC 5658368 GFR AA >60 ML/MIN 11/23/2011 GFR CALC 1516603 GFR NON-AA >60 ML/MIN 11/23/2011 CBC 5594569 WBC 5.1 10e9/L 11/23/2011 CBC 2214022 RBC 4.06 10e12/L 11/23/2011 CBC 9322273 HGB 12.5 g/dL 11/23/2011 CBC 6206679 HCT DET 37.3 % 11/23/2011 CBC 7784188 MCV 91.9 fL 11/23/2011 CBC 4664944 MCH 30.8 pg 11/23/2011 CBC 8455588 MCHC 33.5 g/dL 11/23/2011 CBC 9789144 PLT 222 10e9/L 11/23/2011 CBC 9015774 MPV 10.8 fL 11/23/2011 CBC 7431626 YANIRA % 64.2 % 11/23/2011 CBC 3339555 LY % 22.3 % 11/23/2011 CBC 6235537 MON % 11.3 % 11/23/2011 CBC 1218152 EOS % 1.8 % 11/23/2011 CBC 3054551 BASO % 0.4 % 11/23/2011 CBC 2378524 RDW 13.6 % 11/23/2011 CBC 9420349 ABS YANIRA 3.27 10e9/L 11/23/2011 CBC 8448541 ABS LYMPH 1.14 10e9/L 11/23/2011 CBC 2132664 ABS MONO 0.58 10e9/L 11/23/2011 CBC 5081667 ABS EOS 0.09 10e9/L 11/23/2011 CBC 1921097 ABS BASO 0.02 10e9/L 11/23/2011 CBC 3249490 RDW-SD 44.5 fL 11/23/2011 UA 68863 Specific [place] 1.005 03/04/2011 UA 46682 PH 6 03/04/2011 UA 68276 GLUCOSE N 03/04/2011 UA 21863 Protein N 03/04/2011 UA 60258 Blood ++ 03/04/2011 UA 47967 Bilirubin N 03/04/2011 UA 08773 Ketones N 03/04/2011 UA 37416 Urobilinogen N 03/04/2011 UA 10081 Nitrite N 03/04/2011 UA 42524 Leukocytes N 03/04/2011 URINALYSIS NONAUTO W/O SCOPE 75529 Specific [place] 1.010 DateTime(Free Text in Aprima) URINALYSIS NONAUTO W/O SCOPE 06661 PH 6.5 DateTime(Free Text in Aprima) URINALYSIS NONAUTO W/O SCOPE 26648 GLUCOSE neg DateTime(Free Text in Aprima) URINALYSIS NONAUTO W/O SCOPE 28109 Protein neg DateTime(Free Text in Aprima) URINALYSIS NONAUTO W/O SCOPE 54482 Blood 3+ DateTime(Free Text in Aprima) URINALYSIS NONAUTO W/O SCOPE 71789 Bilirubin neg DateTime(Free Text in Aprima) URINALYSIS NONAUTO W/O SCOPE 17840 Ketones neg DateTime(Free Text in Aprima) URINALYSIS NONAUTO W/O SCOPE 91430 Urobilinogen neg DateTime(Free Text in Aprima) URINALYSIS NONAUTO W/O SCOPE 21966 Nitrite neg DateTime(Free Text in Aprima) URINALYSIS NONAUTO W/O SCOPE 68791 Leukocytes neg DateTime(Free Text in Aprima) URINALYSIS NONAUTO W/O SCOPE 37611 Specific [place] 1.010 DateTime(Free Text in Aprima) URINALYSIS NONAUTO W/O SCOPE 14876 PH 5 DateTime(Free Text in Aprima) URINALYSIS NONAUTO W/O SCOPE 71959 GLUCOSE neg DateTime(Free Text in Aprima) URINALYSIS NONAUTO W/O SCOPE 05651 Protein neg DateTime(Free Text in Aprima) URINALYSIS NONAUTO W/O SCOPE 72256 Blood 3+ DateTime(Free Text in Aprima) URINALYSIS NONAUTO W/O SCOPE 59256 Bilirubin neg DateTime(Free Text in Aprima) URINALYSIS NONAUTO W/O SCOPE 01367 Ketones neg DateTime(Free Text in Aprima) URINALYSIS NONAUTO W/O SCOPE 08921 Urobilinogen neg DateTime(Free Text in Aprima) URINALYSIS NONAUTO W/O SCOPE 67199 Nitrite neg DateTime(Free Text in Aprima) URINALYSIS NONAUTO W/O SCOPE 02295 Leukocytes neg DateTime(Free Text in Aprima) URINALYSIS NONAUTO W/O SCOPE 72019 Specific [place] 1.005 DateTime(Free Text in Aprima) URINALYSIS NONAUTO W/O SCOPE 24470 PH 8.5 DateTime(Free Text in Aprima) URINALYSIS NONAUTO W/O SCOPE 08583 GLUCOSE neg DateTime(Free Text in Aprima) URINALYSIS NONAUTO W/O SCOPE 22077 Protein neg DateTime(Free Text in Aprima) URINALYSIS NONAUTO W/O SCOPE 42879 Blood 1+ DateTime(Free Text in Aprima) URINALYSIS NONAUTO W/O SCOPE 05830 Bilirubin neg DateTime(Free Text in Aprima) URINALYSIS NONAUTO W/O SCOPE 93512 Ketones neg DateTime(Free Text in Aprima) URINALYSIS NONAUTO W/O SCOPE 90804 Urobilinogen neg DateTime(Free Text in Aprima) URINALYSIS NONAUTO W/O SCOPE 08062 Nitrite neg DateTime(Free Text in Aprima) URINALYSIS NONAUTO W/O SCOPE 51350 Leukocytes neg DateTime(Free Text in Aprima) URINALYSIS NONAUTO W/O SCOPE 28178 Specific [place] 1.005 DateTime(Free Text in Aprima) URINALYSIS NONAUTO W/O SCOPE 45819 PH 7 DateTime(Free Text in Aprima) URINALYSIS NONAUTO W/O SCOPE 59201 GLUCOSE neg DateTime(Free Text in Aprima) URINALYSIS NONAUTO W/O SCOPE 83927 Protein neg DateTime(Free Text in Aprima) URINALYSIS NONAUTO W/O SCOPE 23621 Blood large DateTime(Free Text in Aprima) URINALYSIS NONAUTO W/O SCOPE 17104 Bilirubin neg DateTime(Free Text in Aprima) URINALYSIS NONAUTO W/O SCOPE 66233 Ketones neg DateTime(Free Text in Aprima) URINALYSIS NONAUTO W/O SCOPE 97302 Urobilinogen 0.2 DateTime(Free Text in Aprima) URINALYSIS NONAUTO W/O SCOPE 67904 Nitrite neg DateTime(Free Text in Aprima) URINALYSIS NONAUTO W/O SCOPE 64850 Leukocytes neg DateTime(Free Text in Aprima) URINALYSIS NONAUTO W/O SCOPE 18547 Specific [place] 1.005 DateTime(Free Text in Aprima) URINALYSIS NONAUTO W/O SCOPE 41576 PH 7.5 DateTime(Free Text in Aprima) URINALYSIS NONAUTO W/O SCOPE 63796 GLUCOSE DateTime(Free Text in Aprima) URINALYSIS NONAUTO W/O SCOPE 26434 Protein trace DateTime(Free Text in Aprima) URINALYSIS NONAUTO W/O SCOPE 69292 Blood 4+ DateTime(Free Text in Aprima) URINALYSIS NONAUTO W/O SCOPE 85209 Bilirubin DateTime(Free Text in Aprima) URINALYSIS NONAUTO W/O SCOPE 42965 Ketones DateTime(Free Text in Aprima) URINALYSIS NONAUTO W/O SCOPE 40123 Urobilinogen DateTime(Free Text in Aprima) URINALYSIS NONAUTO W/O SCOPE 55558 Nitrite DateTime(Free Text in Aprima) URINALYSIS NONAUTO W/O SCOPE 89936 Leukocytes trace DateTime(Free Text in Aprima) Review of Systems System Result Effective Dates Constitutional No recent illness 09/12/2018 Constitutional chills [...] FLU VACC PRSV FREE INC ANTIG CPT-4: 00984 03/27/2017 PPPS, SUBSEQ VISIT CPT- 4: G0439 01/23/2017 URINALYSIS NONAUTO W/O SCOPE CPT-4: 98847 05/17/2016 ADMIN INFLUENZA VIRUS VAC CPT-4: G0008 03/24/2016 FLU VACC PRSV FREE INC ANTIG CPT-4: 75376 03/24/2016 ADMIN PNEUMOCOCCAL VACCINE SNOMED CT: 24971636 CPT-4: G0009 05/13/2015 PNEUMOCOCCAL VACC [address]: 16689126 CPT-4: 77163 05/13/2015 Pneumococcal Polysaccharide Vaccine, 23-Valent, Ad Assigned to/Mela Bledsoe CPT-4: 06160Yqworgm 07/11/2014 ADMIN PNEUMOCOCCAL VACCINE SNOMED CT: 90503380 CPT-4: G0009 07/11/2014 URINALYSIS NONAUTO W/O SCOPE CPT-4: 46090 05/14/2014 URINALYSIS NONAUTO W/O SCOPE CPT-4: 96730 05/06/2014 URINALYSIS NONAUTO W/O SCOPE CPT-4: 17521 04/29/2014 ADMIN INFLUENZA VIRUS VAC CPT-4: G0008 03/20/2014 FLU VAC NO PRSV 4 SCOTT 3 YRS+ Assigned to/Mela Bledsoe CPT-4: 32615Orqkvtj 03/20/2014 URINALYSIS NONAUTO W/O SCOPE CPT-4: 18185 07/29/2013 URINALYSIS NONAUTO W/O SCOPE CPT-4: 68257 07/01/2013 URINALYSIS NONAUTO W/O SCOPE CPT-4: 01929 06/20/2013 ROUTINE VENIPUNCTURE CPT- 4: 88876 05/15/2013 ROUTINE VENIPUNCTURE CPT- 4: 38690 04/23/2013 ADMIN INFLUENZA VIRUS VAC CPT-4: G0008 04/23/2013 FLULAVAL VACC, 3 YRS & >, IM CPT-4: Q2036 04/23/2013 ROUTINE VENIPUNCTURE CPT- 4: 90206 12/17/2012 ROUTINE VENIPUNCTURE CPT- 4: 44436 12/14/2012 ROUTINE VENIPUNCTURE CPT- 4: 24522 12/11/2012 PRESCRIP TRANSMIT VIA ERX SY CPT-4: G8553 12/11/2012 PRESCRIP TRANSMIT VIA ERX SY CPT-4: G8553 10/30/2012 URINALYSIS NONAUTO W/O SCOPE CPT-4: 20594 09/13/2012 ADMIN INFLUENZA VIRUS VAC CPT-4: G0008 04/18/2012 FLULAVAL VACC, 3 YRS & >, IM CPT-4: Q2036 04/18/2012 URINALYSIS NONAUTO W/O SCOPE CPT-4: 59469 03/13/2012 ROUTINE VENIPUNCTURE CPT- 4: 25618 03/08/2012 URINALYSIS NONAUTO W/O SCOPE CPT-4: 48614 02/13/2012 PRESCRIP TRANSMIT VIA ERX SY CPT-4: G8553 02/13/2012 ROCEPHIN, PER 250 MG CPT- 4: J0696 11/23/2011 ROUTINE VENIPUNCTURE CPT- 4: 58771 11/23/2011 URINALYSIS NONAUTO W/O SCOPE CPT-4: 12011 11/23/2011 PRESCRIP TRANSMIT VIA ERX SY CPT-4: G8553 11/23/2011 REMOVE IMPACTED EAR WAX UNI CPT-4: 66413 10/17/2011 PRESCRIP TRANSMIT VIA ERX SY CPT-4: G8553 10/03/2011 PRESCRIP TRANSMIT VIA ERX SY CPT-4: G8553 08/08/2011 URINALYSIS NONAUTO W/O SCOPE CPT-4: 27680 03/15/2011 URINALYSIS NONAUTO W/O SCOPE CPT-4: 29480 03/04/2011 THER/PROPH/DIAG INJ SC/IM CPT-4: 08010 03/04/2011 ROCEPHIN, PER 250 MG CPT- 4: J0696 03/04/2011 Vital Signs Date Vital 09/12/2018 Blood Pressure 1: 156/72 Code: 8480-6 BMI: 19.9 Code: 11704-1 Heart Rate 1: 68 bpm Height: 5' Temperature: 36.6 (C) / 97.8 (F) Weight: 102 lbs 08/14/2018 Blood Pressure 1: 136/68 Code: 8480-6 BMI: 21.1 Code: 03953-2 Heart Rate 1: 92 bpm Height: 5' Weight: 108 lbs 07/26/2018 Blood Pressure 1: 128/76 Code: 8480-6 BMI: 21.1 Code: 95236-9 Heart Rate 1: 88 bpm Height: 5' Weight: 108 lbs 06/04/2018 Blood Pressure 1: 124/72 Code: 8480-6 BMI: 21.3 Code: 39430-2 Heart Rate 1: 98 bpm Height: 5' Weight: 109 lbs 01/31/2018 Blood Pressure 1: 116/68 Code: 8480-6 BMI: 21.1 Code: 56512-8 Heart Rate 1: 89 bpm Height: 5' SpO2: 98% Weight: 108 lbs 01/17/2018 Blood Pressure 1: 134/74 Code: 8480-6 BMI: 21.3 Code: 83209-4 Heart Rate 1: 74 bpm Height: 5' SpO2: 96% Waist Measure (cm): 71 cm Weight: 109 lbs 12/14/2017 Blood Pressure 1: 150/78 Code: 8480-6 BMI: 21.5 Code: 52879-0 Heart Rate 1: 77 bpm Height: 5' SpO2: 98% Temperature: 36.7 (C) / 98.1 (F) Weight: 110 lbs 12/07/2017 Blood Pressure 1: 134/70 Code: 8480-6 Heart Rate 1: 76 bpm Height: SpO2: 98% Temperature: 36.8 (C) / 98.2 (F) Weight: 11/14/2017 Blood Pressure 1: 152/84 Code: 8480-6 BMI: 21.9 Code: 92132-1 Heart Rate 1: 95 bpm Height: 5' SpO2: 93% Weight: 112 lbs 03/27/2017 Blood Pressure 1: 122/70 Code: 8480-6 BMI: 21.3 Code: 74292-7 Heart Rate 1: 75 bpm Height: 5' Weight: 109 lbs 01/23/2017 BMI: 21.5 Code: 98100-9 Height: 5' Weight: 110 lbs 01/19/2017 Blood Pressure 1: 112/60 Code: 8480-6 BMI: 21.5 Code: 85950-8 Heart Rate 1: 54 bpm Height: 5' SpO2: 97% Weight: 110 lbs 11/29/2016 Blood Pressure 1: 126/68 Code: 8480-6 Height: 5' Weight: 11/23/2016 Blood Pressure 1: 130/72 Code: 8480-6 BMI: 21.9 Code: 49831-1 Heart Rate 1: 48 bpm Height: 5' SpO2: 97% Temperature: 36.7 (C) / 98.0 (F) Weight: 112 lbs 11/21/2016 Blood Pressure 1: 134/76 Code: 8480-6 BMI: 21.9 Code: 31504-7 Heart Rate 1: 41 bpm Height: 5' SpO2: 94% Temperature: 36.9 (C) / 98.4 (F) Weight: 112 lbs 11/08/2016 Blood Pressure 1: 126/74 Code: 8480-6 Heart Rate 1: 82 bpm Height: 5' SpO2: 94% Weight: 11/02/2016 Blood Pressure 1: 112/66 Code: 8480-6 Heart Rate 1: 72 bpm Height: 5' SpO2: 95% Weight: 10/27/2016 Blood Pressure 1: 130/64 Code: 8480-6 BMI: 21.7 Code: 57763-9 Heart Rate 1: 81 bpm Height: 5' SpO2: 96% Weight: 111 lbs 08/31/2016 Blood Pressure 1: 132/72 Code: 8480-6 BMI: 22.5 Code: 86627-6 Heart Rate 1: 66 bpm Height: 5' Weight: 115 lbs 07/27/2016 Blood Pressure 1: 166/74 Code: 8480-6 BMI: 23.2 Code: 00925-7 Heart Rate 1: 48 bpm Height: 5' SpO2: 90% Temperature: 36.8 (C) / 98.2 (F) Weight: 119 lbs 06/23/2016 Blood Pressure 1: 128/70 Code: 8480-6 BMI: 22.3 Code: 77248-9 Heart Rate 1: 75 bpm Height: 5' SpO2: 97% Weight: 114 lbs 06/09/2016 BMI: 22.7 Code: 16731-5 Heart Rate 1: 73 bpm Height: 5' SpO2: 97% Weight: 116 lbs 05/25/2016 Blood Pressure 1: 138/62 Code: 8480-6 BMI: 22.8 Code: 00347-9 Heart Rate 1: 76 bpm Height: 5' Weight: 117 lbs 05/17/2016 Blood Pressure 1: 116/70 Code: 8480-6 BMI: 22.8 Code: 74658-3 Heart Rate 1: 74 bpm Height: 5' SpO2: 94% Weight: 117 lbs 03/24/2016 Blood Pressure 1: 154/78 Code: 8480-6 BMI: 22.5 Code: 73161-1 Heart Rate 1: 78 bpm Height: 5' SpO2: 97% Weight: 115 lbs 02/02/2016 Blood Pressure 1: 132/70 Code: 8480-6 BMI: 22.3 Code: 88517-0 Heart Rate 1: 74 bpm Height: 5' SpO2: 94% Weight: 114 lbs 2016 Blood Pressure 1: 120/62 Code: 8480-6 BMI: 22.0 Code: 34787-1 Heart Rate 1: 68 bpm Height: 5' Weight: 112 lbs 8 oz 12/21/2015 Blood Pressure 1: 122/82 Code: 8480-6 BMI: 21.9 Code: 79893-3 Heart Rate 1: 83 bpm Height: 5' SpO2: 93% Temperature: 37.1 (C) / 98.7 (F) Weight: 112 lbs 11/03/2015 Blood Pressure 1: 122/72 Code: 8480-6 BMI: 22.4 Code: 35452-3 Heart Rate 1: 62 bpm Height: 5' Weight: 114 lbs 8 oz 10/19/2015 Blood Pressure 1: 138/62 Code: 8480-6 BMI: 21.1 Code: 26743-2 Heart Rate 1: 79 bpm Height: 5' Weight: 108 lbs 10/13/2015 Blood Pressure 1: 120/62 Code: 8480-6 BMI: 21.0 Code: 88362-9 Heart Rate 1: 76 bpm Height: 5' SpO2: 98% Weight: 108 lbs 09/29/2015 Blood Pressure 1: 130/70 Code: 8480-6 BMI: 20.2 Code: 02516-2 Heart Rate 1: 72 bpm Height: 5' Weight: 104 lbs 09/15/2015 Blood Pressure 1: 128/78 Code: 8480-6 BMI: 19.9 Code: 69472-0 Heart Rate 1: 72 bpm Height: 5' Weight: 102 lbs 8 oz 09/01/2015 Blood Pressure 1: 128/68 Code: 8480-6 BMI: 19.8 Code: 96816-7 Height: 5' Weight: 102 lbs 05/26/2015 Blood Pressure 1: 140/68 Code: 8480-6 BMI: 19.0 Code: 10898-8 Heart Rate 1: 70 bpm Height: 5' Weight: 98 lbs 05/21/2015 Blood Pressure 1: 140/78 Code: 8480-6 BMI: 19.2 Code: 54667-0 Heart Rate 1: 85 bpm Height: 5' SpO2: 95% Weight: 99 lbs 05/07/2015 Blood Pressure 1: 140/82 Code: 8480-6 BMI: 19.0 Code: 94785-3 Heart Rate 1: 76 bpm Height: 5' Weight: 98 lbs 03/23/2015 Blood Pressure 1: 142/60 Code: 8480-6 BMI: 18.6 Code: 51495-4 Heart Rate 1: 52 bpm Height: 5' Weight: 96 lbs 03/09/2015 Blood Pressure 1: 138/74 Code: 8480-6 BMI: 18.8 Code: 57631-8 Heart Rate 1: 60 bpm Height: 5' Weight: 97 lbs 10/30/2014 Blood Pressure 1: 112/82 Code: 8480-6 BMI: 19.0 Code: 07925-1 Heart Rate 1: 64 bpm Height: 5' Weight: 98 lbs 07/11/2014 Blood Pressure 1: 146/70 Code: 8480-6 BMI: 18.8 Code: 06181-7 Heart Rate 1: 68 bpm Height: 5' Weight: 97 lbs 05/20/2014 Blood Pressure 1: 142/76 Code: 8480-6 BMI: 18.6 Code: 47543-8 Heart Rate 1: 78 bpm Height: 5' Weight: 96 lbs 04/29/2014 Blood Pressure 1: 138/62 Code: 8480-6 BMI: 18.3 Code: 59535-3 Heart Rate 1: 80 bpm Height: 5' Weight: 94 lbs 8 oz 03/20/2014 Blood Pressure 1: 142/68 Code: 8480-6 BMI: 18.6 Code: 67377-6 Heart Rate 1: 96 bpm Height: 5' Weight: 96 lbs 03/05/2014 Blood Pressure 1: 122/72 Code: 8480-6 BMI: 18.8 Code: 59420-6 Heart Rate 1: 82 bpm Height: 5' SpO2: 97% Weight: 97 lbs 01/29/2014 Blood Pressure 1: 124/78 Code: 8480-6 BMI: 18.8 Code: 31019-7 Heart Rate 1: 60 bpm Height: 5' Weight: 97 lbs 01/14/2014 Blood Pressure 1: 120/58 Code: 8480-6 BMI: 19.2 Code: 29677-2 Heart Rate 1: 56 bpm Height: 5' Temperature: 36.9 (C) / 98.4 (F) Weight: 99 lbs 12/25/2013 Blood Pressure 1: 118/78 Code: 8480-6 BMI: 19.2 Code: 48641-3 Heart Rate 1: 68 bpm Height: 5' Weight: 99 lbs 11/27/2013 Blood Pressure 1: 102/68 Code: 8480-6 BMI: 19.4 Code: 95662-0 Heart Rate 1: 56 bpm Height: 5' Weight: 100 lbs 09/12/2013 Blood Pressure 1: 142/62 Code: 8480-6 BMI: 19.7 Code: 03437-4 Heart Rate 1: 72 bpm Height: 5'1" Weight: 104 lbs 08/15/2013 Blood Pressure 1: 152/92 Code: 8480-6 Heart Rate 1: 96 bpm Weight: 102 lbs 08/01/2013 Blood Pressure 1: 122/68 Code: 8480-6 BMI: 19.1 Code: 99650-6 Heart Rate 1: 68 bpm Height: 5'1" Weight: 101 lbs 07/01/2013 Blood Pressure 1: 130/72 Code: 8480-6 BMI: 19.5 Code: 61303-5 Heart Rate 1: 80 bpm Height: 5'1" Temperature: 36.1 (C) / 97.0 (F) Weight: 103 lbs 05/29/2013 Blood Pressure 1: 126/72 Code: 8480-6 BMI: 19.3 Code: 46784-8 Heart Rate 1: 80 bpm Height: 5'1" Weight: 102 lbs 05/15/2013 Blood Pressure 1: 156/74 Code: 8480-6 BMI: 19.3 Code: 05108-8 Heart Rate 1: 88 bpm Height: 5'1" Weight: 102 lbs 04/23/2013 Blood Pressure 1: 140/82 Code: 8480-6 BMI: 19.3 Code: 07117-9 Heart Rate 1: 72 bpm Height: 5'1" Weight: 102 lbs 03/21/2013 Blood Pressure 1: 142/74 Code: 8480-6 Heart Rate 1: 92 bpm Weight: 103 lbs 01/16/2013 Blood Pressure 1: 120/56 Code: 8480-6 BMI: 20.0 Code: 12205-3 Heart Rate 1: 72 bpm Height: 5'1" Weight: 106 lbs 12/19/2012 Blood Pressure 1: 118/66 Code: 8480-6 Heart Rate 1: 84 bpm Weight: 12/10/2012 Blood Pressure 1: 132/62 Code: 8480-6 Heart Rate 1: 64 bpm Weight: 103 lbs 10/30/2012 Blood Pressure 1: 122/66 Code: 8480-6 BMI: 19.9 Code: 34843-0 Heart Rate 1: 61 bpm Height: 5'1" [...] 1: 118/72 Code: 8480-6 BMI: 21.0 Code: 54038-8 Heart Rate 1: 66 bpm Height: 5'1" Respiratory Rate: 16 bpm Weight: 111 lbs 2012 Blood Pressure 1: 122/62 Code: 8480-6 Heart Rate 1: 68 bpm Weight: 110 lbs 12/01/2011 Blood Pressure 1: 150/60 Code: 8480-6 BMI: 20.8 Code: 71542-5 Heart Rate 1: 60 bpm Height: 5'1" Respiratory Rate: 16 bpm Weight: 110 lbs 11/23/2011 Blood Pressure 1: 170/68 Code: 8480-6 BMI: 21.1 Code: 20255-8 Heart Rate 1: 64 bpm Height: 5'1" Temperature: 36.3 (C) / 97.3 (F) Weight: 111 lbs 8 oz 10/17/2011 Blood Pressure 1: 148/62 Code: 8480-6 Heart Rate 1: 74 bpm 10/03/2011 Blood Pressure 1: 102/48 Code: 8480-6 BMI: 21.4 Code: 21998-3 Heart Rate 1: 76 bpm Height: 5'1" Respiratory Rate: 16 bpm Weight: 113 lbs 08/08/2011 Blood Pressure 1: 128/60 Code: 8480-6 Heart Rate 1: 80 bpm Respiratory Rate: 16 bpm Weight: 113 lbs 05/09/2011 Blood Pressure 1: 130/62 Code: 8480-6 BMI: 20.7 Code: 00877-0 Heart Rate 1: 64 bpm Height: 5'1" Respiratory Rate: 16 bpm Weight: 109 lbs 8 oz 03/29/2011 Blood Pressure 1: 120/62 Code: 8480-6 BMI: 20.2 Code: 64195-9 Heart Rate 1: 66 bpm Height: 5'1" Respiratory Rate: 12 bpm Weight: 107 lbs 03/15/2011 Blood Pressure 1: 120/64 Code: 8480-6 BMI: 19.8 Code: 57355-5 Heart Rate 1: 76 bpm Height: 5'1" Respiratory Rate: 16 bpm Weight: 105 lbs Functional Status No Functional Status data History of Present Illness Symptom Name Status Result Effective Date Notes Location in the lung 09/12/2018 None Quality [...] contacts 03/20/2014 sat next to neighbor in [place] who had tonsillitis sore throat Pertinent Findings [...] data Encounters Encounter Performer Location Codes Date EST. PATIENT, LEVEL III Diagnosis: Cough[ICD10: R05] Diagnosis: Acute laryngopharyngitis[ICD10: J06.0] Diagnosis: Other allergic rhinitis[ICD10: J30.89] Diagnosis: Raynaud's syndrome without gangrene[ICD10: I73.00] Katharine Bahena MD, [facility] CPT-4: 80359 09/12/2018 ([id number]) 12820 EST. PATIENT, LEVEL IV Diagnosis: Raynaud's syndrome without gangrene[ICD10: I73.00] Diagnosis: Pain in right toe(s)[ICD10: M79.674] Diagnosis: Chronic atrial fibrillation[ICD10: I48.2] Karma Bahena MD, [facility] CPT-4: 05263 08/14/2018 ([id number]) 42114 EST. PATIENT, LEVEL IV Diagnosis: Chronic atrial fibrillation[ICD10: I48.2] Diagnosis: Sebaceous cyst[ICD10: L72.3] Diagnosis: Raynaud's syndrome without gangrene[ICD10: I73.00] Karma Bahena MD, [facility] CPT-4: 18247 07/26/2018 ([id number]) 31573 EST. PATIENT, LEVEL IV Diagnosis: Essential (primary) hypertension[ICD10: I10] Diagnosis: Atrophy of thyroid (acquired)[ICD10: E03.4] Diagnosis: Gastro-esophageal reflux disease without esophagitis[ICD10: K21.9] Karma Bahena MD, [facility] CPT-4: 02659 06/04/2018 ([id number]) 07461 EST. 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 PATIENT, LEVEL IV Diagnosis: Essential (primary) hypertension[ICD10: I10] Diagnosis: Chronic atrial fibrillation[ICD10: I48.2] Diagnosis: Allergic rhinitis due to pollen[ICD10: J30.1] Diagnosis: Cough[ICD10: R05] Karma Bahena MD, [facility] CPT-4: 57047 12/14/2017 92956 EST. PATIENT, LEVEL IV Diagnosis: Other allergic rhinitis[ICD10: J30.89] Katharine Bahena MD, [facility] CPT- 4: 19074 12/07/2017 ([id number]) 65139 EST. PATIENT, LEVEL IV Diagnosis: Essential (primary) hypertension[ICD10: I10] Diagnosis: Chronic atrial fibrillation[ICD10: I48.2] Diagnosis: Atrophy of thyroid (acquired)[ICD10: E03.4] Karma Bahena MD, [facility] CPT-4: 79965 11/14/2017 ([id number]) 07099 EST. PATIENT, LEVEL IV Diagnosis: Essential (primary) hypertension[ICD10: I10] Diagnosis: Localized edema[ICD10: R60.0] Diagnosis: Encounter for immunization[ICD10: Z23] Diagnosis: Age-related osteoporosis without current pathological fracture[ICD10: M81.0] Karma Bahena MD, [facility] CPT-4: 73115 03/27/2017 ([id number]) 87767 EST. PATIENT, LEVEL IV Diagnosis: Essential (primary) hypertension[ICD10: I10] Diagnosis: Chronic atrial fibrillation[ICD10: I48.2] Diagnosis: Dysphonia[ICD10: R49.0] Karma Bahena MD, [facility] CPT-4: 38345 01/19/2017 ([id number]) Miscellaneous no charge Diagnosis: Cough[ICD10: R05] Diagnosis: Acute upper respiratory infection, unspecified[ICD10: J06.9] Laura Bahena MD, [facility] CPT-4: 97583 11/29/2016 50020 EST. PATIENT, LEVEL III Diagnosis: Cough[ICD10: R05] Diagnosis: Acute laryngopharyngitis[ICD10: J06.0] Katharine Bahena MD, [facility] CPT- 4: 12689 11/23/2016 ([id number]) 76376 EST. PATIENT, LEVEL III Diagnosis: Acute laryngopharyngitis[ICD10: J06.0] Laura Bahena MD, [facility] CPT-4: 56449 11/21/2016 ([id number]) Miscellaneous no charge Diagnosis: Laceration without foreign body of right forearm, subsequent encounter[ICD10: S51.811D] Karma Bahena MD, [facility] CPT-4: 21412 11/17/2016 ([id number]) Miscellaneous no charge Diagnosis: Laceration without foreign body of right forearm, subsequent encounter[ICD10: S51.811D] Karma Bahena MD, [facility] CPT-4: 97875 11/14/2016 ([id number]) Miscellaneous no charge Diagnosis: Laceration without foreign body of right forearm, subsequent encounter[ICD10: S51.811D] Karma Bahena MD, [facility] CPT-4: 85486 11/11/2016 ([id number]) Miscellaneous no charge Diagnosis: Laceration without foreign body of right forearm, subsequent encounter[ICD10: S51.811D] Karma Bahena MD, [facility] CPT-4: 20923 11/10/2016 ([id number]) 19000 EST. PATIENT, LEVEL II Diagnosis: Laceration without foreign body of right forearm, subsequent encounter[ICD10: S51.811D] Karma Bahena MD, [facility] CPT-4: 01876 11/08/2016 ([id number]) 97933 EST. PATIENT, LEVEL IV Diagnosis: Atrophy of thyroid (acquired)[ICD10: E03.4] Diagnosis: Chronic atrial fibrillation[ICD10: I48.2] Diagnosis: Laceration without foreign body of right forearm, subsequent encounter[ICD10: S51.811D] Karma Bahena MD, [facility] CPT-4: 56141 11/02/2016 ([id number]) 94595 EST. PATIENT, LEVEL III Diagnosis: Laceration without foreign body of right forearm, initial encounter[ICD10: S51.811A] Laura Bahena MD, [facility] CPT-4: 97980 10/27/2016 ([id number]) 83104 EST. PATIENT, LEVEL IV Diagnosis: Essential (primary) hypertension[ICD10: I10] Diagnosis: Chronic atrial fibrillation[ICD10: I48.2] Karma Bahena MD [facility] CPT-4: 06240 08/31/2016 ([id number]) 94911 EST. PATIENT, LEVEL IV Diagnosis: Localized edema[ICD10: R60.0] Diagnosis: Essential (primary) hypertension[ICD10: I10] Diagnosis: Abdominal distension (gaseous)[ICD10: R14.0] Karma Bahena MD, [facility] CPT-4: 06914 07/27/2016 ([id number]) 15695 EST. PATIENT, LEVEL IV Diagnosis: Essential (primary) hypertension[ICD10: I10] Diagnosis: Chronic atrial fibrillation[ICD10: I48.2] Diagnosis: Localized edema[ICD10: R60.0] Karma Bahena MD, [facility] CPT-4: 55647 06/23/2016 ([id number]) 38070 EST. PATIENT, LEVEL III Diagnosis: Localized edema[ICD10: R60.0] Karma Bahena MD, [facility] CPT-4: 03117 06/09/2016 ([id number]) 13965 EST. PATIENT, LEVEL III Diagnosis: Irritable bowel syndrome without diarrhea[ICD10: K58.9] Diagnosis: Pruritus ani[ICD10: L29.0] Karma Bahena MD, [facility] CPT-4: 66812 05/25/2016 ([id number]) 96197 EST. PATIENT, LEVEL III Diagnosis: Abdominal distension (gaseous)[ICD10: R14.0] Diagnosis: Encounter for screening mammogram for malignant neoplasm of breast[ICD10: Z12.31] Karma Bahena MD, [facility] CPT-4: 54309 05/17/2016 ([id number]) 72241 EST. PATIENT, LEVEL IV Diagnosis: Essential (primary) hypertension[ICD10: I10] Diagnosis: First degree hemorrhoids[ICD10: K64.0] Diagnosis: Encounter for immunization[ICD10: Z23] Karma Bahena MD, [facility] CPT-4: 18729 03/24/2016 ([id number]) 60335 EST. 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 PATIENT, LEVEL III Diagnosis: Acute anal fissure[ICD10: K60.0] Karma Bahena MD [facility] CPT-4: 84688 2016 ([id number]) 48231 EST. PATIENT, LEVEL III Diagnosis: Allergic rhinitis due to pollen[ICD10: J30.1] Diagnosis: Acute upper respiratory infection, unspecified[ICD10: J06.9] Laura Bahena MD, [facility] CPT-4: 70664 12/21/2015 ([id number]) 53848 EST. PATIENT, LEVEL III Diagnosis: Essential (primary) hypertension[ICD10: I10] Diagnosis: Chronic atrial fibrillation[ICD10: I48.2] Karma Bahena MD, [facility] CPT-4: 09735 11/03/2015 ([id number]) Miscellaneous no charge Diagnosis: Impacted cerumen, right ear[ICD10: H61.21] Katharine Bahena MD, [facility] CPT-4: 72867 10/19/2015 16937 EST. PATIENT, LEVEL IV Diagnosis: Impacted cerumen, right ear[ICD10: H61.21] Diagnosis: Other allergic rhinitis[ICD10: J30.89] Katharine Bahena MD, [facility] CPT- 4: 72832 10/13/2015 ([id number]) 86501 EST. PATIENT, LEVEL IV Diagnosis: Essential (primary) hypertension[ICD10: I10] Diagnosis: Chronic atrial fibrillation[ICD10: I48.2] Diagnosis: Urge incontinence[ICD10: N39.41] Diagnosis: Age-related osteoporosis without current pathological fracture[ICD10: M81.0] Karma Bahena MD, [facility] CPT-4: 63853 09/29/2015 ([id number]) 32403 EST. PATIENT, LEVEL IV Diagnosis: Essential (primary) hypertension[ICD10: I10] Diagnosis: Chronic atrial fibrillation[ICD10: I48.2] Diagnosis: Irritable bowel syndrome without diarrhea[ICD10: K58.9] Diagnosis: Unspecified hemorrhoids[ICD10: K64.9] Karma Bahena MD, [facility] CPT-4: 83613 09/15/2015 ([id number]) 24872 EST. 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 PATIENT, LEVEL III Diagnosis: Hematuria, unspecified[ICD10: R31.9] Diagnosis: Other urethritis[ICD10: N34.2] Diagnosis: Other specified noninflammatory disorders of vagina[ICD10: N89.8] Karma Bahena MD, [facility] CPT-4: 68708 05/26/2015 69818 EST. PATIENT, LEVEL IV Diagnosis: Gout, unspecified[ICD10: M10.9] Karma Bahena MD, [facility] CPT-4: 01509 05/21/2015 ([id number]) 91182 EST. PATIENT, LEVEL IV Diagnosis: Chronic atrial fibrillation[ICD10: I48.2] Diagnosis: Irritable bowel syndrome without diarrhea[ICD10: K58.9] Diagnosis: Cystocele, unspecified[ICD10: N81.10] Diagnosis: Urge incontinence[ICD10: N39.41] Diagnosis: Fecal smearing[ICD10: R15.1] Diagnosis: Hypothyroidism, unspecified[ICD10: E03.9] Karma Bahena MD, [facility] CPT-4: 23770 05/07/2015 ([id number]) 62492 EST. PATIENT, LEVEL III Diagnosis: Atrial fibrillation[ICD9: 427.31] Diagnosis: Bloating[ICD9: 787.3] Karma Bahena MD [facility] CPT-4: 54055 03/23/2015 ([id number]) 51149 EST. PATIENT, LEVEL IV Diagnosis: Abdominal pain[ICD9: 789.00] Diagnosis: Atrial fibrillation[ICD9: 427.31] Diagnosis: ENCNTR LONG-ANTICOAG USE[ICD9: V58.61] Karma Bahena MD [facility] CPT-4: 38282 03/09/2015 ([id number]) 58175 EST. PATIENT, LEVEL IV Diagnosis: HEMATURIA NOS[ICD9: 599.70] Diagnosis: Atrial fibrillation[ICD9: 427.31] Diagnosis: HYPOTHYROIDISM[ICD9: 244.9] Karma Bahena MD [facility] CPT-4: 76853 10/30/2014 ([id number]) 10604 EST. PATIENT, LEVEL IV Diagnosis: Atrial fibrillation[ICD9: 427.31] Diagnosis: ALLERGIC RHINITIS[ICD9: 477.9] Diagnosis: Need for pneumococcal vaccine[ICD9: V03.82] Diagnosis: Osteoarthritis[ICD9: 715.90] Diagnosis: Osteoporosis[ICD9: 733.00] Karma Bahena MD [facility] CPT-4: 60482 07/11/2014 ([id number]) 79005 EST. PATIENT, LEVEL III Diagnosis: Urge incontinence[ICD9: 788.31] Diagnosis: Dysuria[ICD9: 788.1] Karma Bahena MD [facility] CPT-4: 81928 05/20/2014 ([id number]) 76959 EST. PATIENT, LEVEL IV Diagnosis: Atrial fibrillation[ICD9: 427.31] Diagnosis: Hematuria[ICD9: 599.70] Diagnosis: Dysuria[ICD9: 788.1] Diagnosis: ESSENTIAL HYPERTENSION[ICD9: 401.9] Karma Bahena MD [facility] CPT- 4: 79752 04/29/2014 ([id number]) 28448 EST. PATIENT, LEVEL IV Diagnosis: ESSENTIAL HYPERTENSION[ICD9: 401.9] Diagnosis: ALLERGIC RHINITIS[ICD9: 477.9] Karma Bahena MD [facility] CPT-4: 53136 03/20/2014 ([id number]) 58574 EST. PATIENT, LEVEL IV Diagnosis: ESSENTIAL HYPERTENSION[ICD9: 401.9] Diagnosis: ATRIAL FIBRILLATION[ICD9: 427.31] Diagnosis: Irritable bowel[ICD9: 564.1] Karma Bahena MD, [facility] CPT-4: 09800 03/05/2014 ([id number]) 19682 EST. PATIENT, LEVEL IV Diagnosis: Esophageal reflux[ICD9: 530.81] Diagnosis: DIARRHEA[ICD9: 787.91] Diagnosis: ABDOM PAIN NOS SITE[ICD9: 789.00] Karma Bahena MD, [facility] CPT- 4: 87899 01/29/2014 ([id number]) 00894 EST. PATIENT, LEVEL III Diagnosis: Irritable bowel[ICD9: 564.1] Diagnosis: DIARRHEA[ICD9: 787.91] Laura Bahena MD, [facility] CPT-4: 43353 01/14/2014 ([id number]) 84842 EST. PATIENT, LEVEL IV Diagnosis: ESSENTIAL HYPERTENSION[ICD9: 401.9] Diagnosis: ATRIAL FIBRILLATION[ICD9: 427.31] Diagnosis: URGE INCONTINENCE[ICD9: 788.31] Diagnosis: MALAISE AND FATIGUE[ICD9: 780.79] Diagnosis: Dyspnea[ICD9: 786.09] Karma Bahena MD, [facility] CPT-4: 43926 12/25/2013 ([id number]) 96895 EST. PATIENT, LEVEL IV Diagnosis: ESSENTIAL HYPERTENSION[SNOMED: 48290924] Diagnosis: ATRIAL FIBRILLATION[ICD9: 427.31] Diagnosis: Abdominal pain[ICD9: 789.00] Diagnosis: ESOPHAGEAL REFLUX[ICD9: 530.81] Karma Bahena MD, [facility] CPT-4: 20625 11/27/2013 ([id number]) 28195 EST. PATIENT, LEVEL IV Diagnosis: ESSENTIAL HYPERTENSION[SNOMED: 84957369] Diagnosis: ATRIAL FIBRILLATION[ICD9: 427.31] Diagnosis: Chronic osteoarthritis[ICD9: 715.90] Karma Bahena MD, [facility] CPT- 4: 92477 09/12/2013 ([id number]) 50527 EST. PATIENT, LEVEL III Diagnosis: ESSENTIAL HYPERTENSION[SNOMED: 57473840] Diagnosis: Bruising[ICD9: 924.9] Diagnosis: ENCNTR LONG-RX USE NEC[ICD9: V58.69] Karma Bahena MD [facility] CPT- 4: 94640 08/15/2013 ([id number]) 50002 EST. PATIENT, LEVEL IV Diagnosis: ESSENTIAL HYPERTENSION[SNOMED: 76609809] Diagnosis: Hematuria[ICD9: 599.70] Diagnosis: Dysuria[ICD9: 788.1] Karma Bahena MD [facility] CPT-4: 02552 08/01/2013 ([id number]) 33567 EST. PATIENT, LEVEL III Diagnosis: UTI[ICD9: 599.0] Diagnosis: Hematuria[ICD9: 599.70] Laura Bahena MD [facility] CPT-4: 19645 07/01/2013 ([id number]) 45936 EST. PATIENT, LEVEL III Diagnosis: ATRIAL FIBRILLATION[ICD9: 427.31] Diagnosis: ESSENTIAL HYPERTENSION[SNOMED: 09374212] Karma Bahena MD [facility] CPT-4: 78026 05/29/2013 ([id number]) 67859 EST. PATIENT, LEVEL IV Diagnosis: Atrial fibrillation[ICD9: 427.31] Diagnosis: Encounter for monitoring digoxin therapy[ICD9: V58.83] Diagnosis: ESSENTIAL HYPERTENSION[SNOMED: 69610474] Karma Bahena MD [facility] CPT-4: 56012 05/15/2013 ([id number]) 63168 EST. PATIENT, LEVEL IV Diagnosis: ESSENTIAL HYPERTENSION[SNOMED: 87915229] Diagnosis: ATRIAL FIBRILLATION[ICD9: 427.31] Diagnosis: PALPITATIONS[ICD9: 785.1] Diagnosis: Dizziness and giddiness[ICD9: 780.4] Karma Bahena MD [facility] CPT- 4: 99574 04/23/2013 ([id number]) 65177 EST. PATIENT, LEVEL III Diagnosis: OTHER CONSTIPATION[ICD9: 564.09] Diagnosis: ABDOM PAIN NOS SITE[ICD9: 789.00] Laura Bahena MD [facility] CPT- 4: 46598 03/21/2013 ([id number]) 57409 EST. PATIENT, LEVEL IV Diagnosis: ESSENTIAL HYPERTENSION[SNOMED: 52519930] Diagnosis: Atrial fibrillation[ICD9: 427.31] Karma Bahena MD [facility] CPT- 4: 76130 01/16/2013 ([id number]) Miscellaneous no charge Diagnosis: CELLULITIS OF HAND[ICD9: 682.4] Karma Bahena MD [facility] CPT-4: 00413 12/19/2012 ([id number]) Miscellaneous no charge Diagnosis: ENCOUNTER FOR THERAPEUTIC DRUG MONITORING[ICD9: V58.83] Diagnosis: CELLULITIS OF HAND[ICD9: 682.4] Karma Bahena MD, [facility] CPT-4: 71137 12/14/2012 Miscellaneous no charge Diagnosis: CELLULITIS OF HAND[ICD9: 682.4] Karma Bahena MD, [facility] CPT-4: 08394 12/12/2012 23297 EST. PATIENT, LEVEL II Diagnosis: CELLULITIS OF HAND[ICD9: 682.4] Diagnosis: ENCNTR LONG-RX USE NEC[ICD9: V58.69] Diagnosis: LONG-TERM USE ANTICOAGUL[ICD9: V58.61] Karma Bahena MD, [facility] CPT-4: 65411 12/11/2012 ([id number]) 74722 EST. PATIENT, LEVEL III Diagnosis: CELLULITIS OF HAND[ICD9: 682.4] Karma Bahena MD [facility] CPT-4: 68030 12/10/2012 ([id number]) 82567 EST. PATIENT, LEVEL IV Diagnosis: Elevated digoxin level[ICD9: 796.0] Diagnosis: ATRIAL FIBRILLATION[ICD9: 427.31] Diagnosis: Inflammatory arthritis[ICD9: 714.9] Karma Bahena MD, [facility] CPT- 4: 83247 10/30/2012 ([id number]) 98543 EST. PATIENT, LEVEL IV Diagnosis: Atrial fibrillation[ICD9: 427.31] Diagnosis: Anticoagulant long-term use[ICD9: V58.61] Diagnosis: ESSENTIAL HYPERTENSION[SNOMED: 97356272] Karma Bahena MD, [facility] CPT-4: 18516 08/08/2012 ([id number]) 21463 EST. PATIENT, LEVEL IV Diagnosis: ABDOM PAIN NOS SITE[ICD9: 789.00] Diagnosis: Constipation - functional[ICD9: 564.09] Diagnosis: EDEMA[ICD9: 782.3] Diagnosis: ATRIAL FIBRILLATION[ICD9: 427.31] Karma Bahena MD, [facility] CPT- 4: 56956 07/11/2012 ([id number]) 46259 EST. PATIENT, LEVEL III Diagnosis: Cystocele[ICD9: 618.01] Diagnosis: Rectocele[ICD9: 618.04] Karma Bahena MD, [facility] CPT-4: 49987 05/08/2012 ([id number]) 22780 EST. 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 PATIENT, LEVEL IV Diagnosis: ATRIAL FIBRILLATION[ICD9: 427.31] Diagnosis: URGE INCONTINENCE[ICD9: 788.31] Diagnosis: MALAISE AND FATIGUE[ICD9: 780.79] Diagnosis: Dyspnea[ICD9: 786.09] [facility] CPT-4: 54752 02/20/2012 [id number] EST. PATIENT, LEVEL IV Diagnosis: Hematuria[ICD9: 599.70] Diagnosis: Vaginal yeast infection[ICD9: 112.1] Diagnosis: ATRIAL FIBRILLATION[ICD9: 427.31] Laura Bahena MD, [facility] CPT- 4: 97893 02/13/2012 ([id number]) 98245 EST. PATIENT, LEVEL IV Diagnosis: Atrial fibrillation[ICD9: 427.31] Diagnosis: Anticoagulation goal of INR 2 to 3[ICD9: V58.83] Diagnosis: Urinary incontinence, urge[ICD9: 788.31] Diagnosis: ESSENTIAL HYPERTENSION[SNOMED: 68884870] Karma Bahena MD, [facility] CPT-4: 42712 02/01/2012 ([id number]) 54849 EST. PATIENT, LEVEL IV Diagnosis: Atrial fibrillation[ICD9: 427.31] Diagnosis: Anticoagulant long-term use[ICD9: V58.61] Diagnosis: ESSENTIAL HYPERTENSION[SNOMED: 98891345] Karma Bahena MD, [facility] CPT-4: 16475 2012 19768 EST. PATIENT, LEVEL IV Diagnosis: UTI[ICD9: 599.0] Diagnosis: ESSENTIAL HYPERTENSION[SNOMED: 77071374] Diagnosis: MALAISE AND FATIGUE[ICD9: 780.79] Diagnosis: Esophageal reflux[ICD9: 530.81] Karma Bahena MD [facility] CPT-4: 17532 12/01/2011 ([id number]) [id number] EST. PATIENT, LEVEL IV Diagnosis: UTI (urinary tract infection)[ICD9: 599.0] Diagnosis: ESSENTIAL HYPERTENSION[SNOMED: 15045880] Diagnosis: URGE INCONTINENCE[ICD9: 788.31] Karma Bahena MD [facility] CPT-4: 41887 11/23/2011 ([id number]) 72978 EST. PATIENT, LEVEL IV Diagnosis: ESSENTIAL HYPERTENSION[SNOMED: 00308769] Diagnosis: IMPACTED CERUMEN[ICD9: 380.4] Diagnosis: MALAISE AND FATIGUE[ICD9: 780.79] Diagnosis: EDEMA[ICD9: 782.3] Karma Bahena MD, [facility] CPT-4: 25676 10/03/2011 91646 EST. PATIENT, LEVEL IV Diagnosis: ESSENTIAL HYPERTENSION[SNOMED: 85682333] Diagnosis: Generalized osteoarthritis[ICD9: 715.09] Diagnosis: OSTEOPOROSIS[ICD9: 733.00] Karma Bahena MD, [facility] CPT-4: 27532 08/08/2011 83452 EST. PATIENT, LEVEL IV Diagnosis: Muscle cramp[ICD9: 729.82] Diagnosis: Torticollis[ICD9: 723.5] Diagnosis: Rash[ICD9: 782.1] [facility] CPT-4: 00170 05/09/2011 [id number] EST. PATIENT, LEVEL IV Diagnosis: Leg cramps, sleep related[ICD9: 327.52] Diagnosis: Underweight[ICD9: 783.22] [facility] CPT-4: 98371 03/29/2011 [id number] EST. PATIENT, LEVEL IV Diagnosis: UTI[ICD9: 599.0] Diagnosis: Urge incontinence[ICD9: 788.31] Diagnosis: Loss of weight[ICD9: 783.21] Diagnosis: Palpitations[ICD9: 785.1] Diagnosis: Peripheral neuropathy, idiopathic[ICD9: 356.9] [facility] CPT-4: 02429 03/15/2011 Plan of Care Planned Activity Notes Codes Status Date Visit Plan: URI - Pt advised to [...] or concerns. 09/12/2018 Appointment: Katharine Dai WPtel: [facility]5 [facility] (15 min) Moderate 09/12/2018 Patient Education: Patient Medication Summary Completed 09/12/2018 Appointment: Karma Bahena WPtel: [facility]5 [facility] (15 min) Moderate 08/16/2018 Visit [...] surgically removed. 08/14/2018 Appointment: [phone] (15 min) Moderate 08/14/2018 Patient Education: Patient [...] surgically removed. 07/26/2018 Appointment: Kar[place] Bahena WPtel: [phone] (15 min) Moderate 07/26/2018 Patient Education: Patient [...] improving. 06/04/2018 Appointment: Karma Bahena WPtel: [phone] [facility]6676[facility] (15 min) Moderate 06/04/2018 Patient Education: Patient Medication Summary Completed 06/04/2018 Appointment: Karma Bahena WPtel: [phone] [facility] (15 min) Moderate 03/14/2018 Visit [...] months or q 6 m [facility] based on previous levels of control. 01/31/2018 Appointment: Katharine Dai WPtel: [phone] [facility] [facility] - Annual Wellness Visit 01/31/2018 Patient [...] allergy spray. 12/14/2017 Appointment: Karma Bahena WPtel: [address] [place], [place] [address] (15 min) Moderate 12/14/2017 Patient Education: Patient [...] spray. 12/07/2017 Appointment: Katharine Dai WPtel: [phone] [facility] (15 min) Moderate 12/07/2017 Patient Education: Patient [...] months or q 6 m [facility] based on previous levels of control. 11/14/2017 Appointment: Karma Bahena WPtel: [phone] [facility] (15 min) Moderate 11/14/2017 Patient [...] today. 03/27/2017 Appointment: Karma Bahena WPtel: [phone] [facility] (15 min) Moderate 03/27/2017 Patient [...] care surrogate. 01/23/2017 Appointment: Katharine Dai WPtel: [facility]6 [facility] [place] [address] - Annual Wellness Visit 01/23/2017 Patient Education: [...] becoming uncontrolled. 01/19/2017 Appointment: Karma Bahena WPtel: [facility] (15 min) Moderate 01/19/2017 Patient Education: Patient Medication Summary Completed 01/19/2017 Care Plan: Referral Order SNOMED-CT : [id number] Pending 01/19/2017 Appointment: Karma Bahena WPtel: [facility]1 [facility] (15 min) Moderate 01/04/2017 Appointment: Karma Bahena WPtel: [facility] (15 min) Moderate 12/28/2016 Visit Plan: XCK-xtyxu-sgo zpack-call if symptoms do not resolve or if any worse. Patient verbalized understanding of plan. 11/29/2016 Appointment: Laura Colin WPtel: [address] (15 min) Moderate 11/29/2016 Patient Education: Patient [...] patient's pharmacy. 11/23/2016 Appointment: Katharine Dai WPtel: [phone] [facility]66[facility] (15 min) Moderate 11/23/2016 Patient Education: Patient Medication Summary Completed 11/23/2016 Visit Plan: Pharyngitis-Discussed natural and expected course of this diagnosis and need to alert me if symptoms do not follow expected course, or if any worse. Recommended salt water gargles as needed for pain. Ty lenol/motrin as needed for fever/discomfort. 11/21/2016 Appointment: Laura Colin WPtel: [phone] [phone] (15 min) Moderate 11/21/2016 Patient Education: Patient [...] monitor symptoms. 11/08/2016 Appointment: Karma Bahena WPtel: [phone] [facility] [place] (10 min) Simple 11/08/2016 Patient Education: [...] bactroban, etc. 11/02/2016 Appointment: Karma Bahena WPtel: [facility]0 [facility] (15 min) Moderate 11/02/2016 Appointment: Nurse Visit 11/02/2016 Patient Education: Patient Medication Summary Completed 11/02/2016 Appointment: Nurse Visit 10/31/2016 Visit Plan: Laceration-right forearm- Pt was instructed to keep the wound clean, cleanse with sterile saline, use bactroban ointment, call if redness, pustular drainage, or any other acute concerns. Follow up Monday for dressing changes. 10/27/2016 Appointment: Laura Colin WPtel: [facility]1 [phone] [place] (30 min) Complex 10/27/2016 [...] in symptoms. 08/31/2016 Appointment: Karma Bahena WPtel: [facility]2 [facility] [place] (15 min) Moderate 08/31/2016 Patient Education: [...] your swelling. 07/27/2016 Appointment: Karma Bahena WPtel: [facility]6 [facility] (15 min) Moderate 07/27/2016 Patient Education: Patient [...] of lasix 06/23/2016 Appointment: Karma Bahena WPtel: [facility] (15 min) Moderate 06/23/2016 Patient Education: Patient Medication Summary Completed 06/23/2016 Patient Education: Hypertension Completed 06/23/2016 Visit Plan: Edema - with Dyspnea - RX for laxis and compression socks - pt to call if not improving. 06/09/2016 Appointment: Karma Bahena WPtel: [phone] [facility] (15 min) Moderate 06/09/2016 Patient Education: Patient Medication Summary Completed 06/09/2016 Visit Plan: Abdominal pain and rectal itching - recommended pt to use betamethasone on vaginal/rectal region, monitor symptoms call if not improving. Continue with beano and simethicone 05/25/2016 Appointment: Kar[place] Bahena WPtel: [phone] [facility] (15 min) Moderate 05/25/2016 Patient Education: Patient Medication Summary Completed 05/25/2016 Care Plan: SCREENINGMAMMOGRAPHYDIGITAL [facility] : [id number] Pending 05/20/2016 Visit Plan: Abdominal distension - use simethicone four times daily - after meals - if it does not help - in the next two weeks - call the office and we will do a ct scan of the abdomen and pelvis 05/17/2016 Appointment: Karma Bahena WPtel: [phone] [facility] (15 min) Moderate 05/17/2016 Patient Education: Patient [...] steroid ointment 03/24/2016 Appointment: Kar[place] Bahena WPtel: [phone] [facility] (30 min) Complex 03/24/2016 Patient Education: Patient [...] allergy spray. 12/21/2015 Appointment: Laura Colin WPtel: [phone] [facility] (30 min) Complex 12/21/2015 Patient Education: [...] uncontrolled. 11/03/2015 Appointment: Karma Bahena WPtel: [phone] [facility] (15 min) Moderate 11/03/2015 Patient Education: Patient [...] had left kidney and ureter removed in [place]-doing well 09/01/2015 Appointment: (30 min) Complex 09/01/2015 Patient Education: Patient Medication Summary Completed 09/01/2015 Patient Education: Hypertension Completed 09/01/2015 Appointment: Karma Bahena WPtel: [address] [place], [place] [address] (15 min) Moderate 07/13/2015 Visit Plan: Hematuria/Urethritis [...] 05/13/2015 Care Plan: Referral Order SNOMED-CT : [id number] Ordered 05/08/2015 Visit Plan: Atrial Fibrillation - [...] Dr. Collins. 05/07/2015 Appointment: Karma Bahena WPtel: [phone] [facility] (15 min) Moderate 05/07/2015 Patient Education: Patient [...] becoming uncontrolled. 10/30/2014 Appointment: Kar[place] Bahena WPtel: [phone] [facility] Follow up 10/30/2014 Patient Education: Patient Medication Summary Completed 10/30/2014 Appointment: Karma Bahena WPtel: [address] [place], [place] [phone] Follow up 07/22/2014 Visit Plan: Atrial Fibrillation [...] in hospital. 07/11/2014 Appointment: Karma Bahena WPtel: [address] [place], [place] [phone] Sick 07/11/2014 Patient Education: Patient Medication Summary Completed 07/11/2014 Appointment: Kar[place] Bahena WPtel: [address] [place], [place] [phone] Follow up 07/07/2014 Visit Plan: Urinary incontinence and recurrent UTI's - doctor will refer to Dr. Joel Collins - for nonsurgical intervention for potential electrical stimulation/training of pelvic floor muscles - for strengthening - can start on the treatment when you get back from [place] - will also ask him about doing a cystoscopy to look into bladder to see if there is any bladder irritation. keep using the Premarin - use about 25Cent size of cream onto finger to apply to urethra and do this three times weekly. 05/20/2014 Appointment: Kar[place] Bahena WPtel: [address] [place], [place] [phone] Follow up 05/20/2014 Patient Education: Patient Medication Summary Completed 05/20/2014 Appointment: Kar[place] Bahena WPtel: [address] [place], [place] [phone] Lab Draw 05/14/2014 Patient Education: Patient Medication [...] recommended vesicare. 04/29/2014 Appointment: Kar[place] Bahena WPtel: [address] [place], [place] [address] Follow up 04/29/2014 Patient Education: Patient Medication [...] spray. 03/20/2014 Appointment: Kar[place] Bahena WPtel: [phone] [facility] [facility] 03/20/2014 Patient Education: Patient Medication Summary [...] uncontrolled. 03/05/2014 Appointment: Karma Bahena WPtel: [phone] [facility] Follow up 03/05/2014 Patient Education: [...] with report. 01/29/2014 Appointment: Karma Bahena WPtel: [phone] [facility] Follow up 01/29/2014 Patient Education: [...] fatigue. 12/25/2013 Appointment: Kar[place] Bahena WPtel: [phone] [facility] Follow up 12/25/2013 Patient Education: Patient Medication [...] twice daily. 11/27/2013 Appointment: Kar[place] Bahena WPtel: [phone] [facility] Follow up 11/27/2013 Patient Education: Patient Medication [...] heart rate. Osteoarthritis - [facility] for strengthening and pain reduction. Hypertension - well controlled - continue with current medications, continue with no added salt diet. Pt has been encouraged to exercise daily. The pt has been advised to call the office if there are any acute concerns about change in blood pressure readings at home. 09/12/2013 Appointment: Kar[place] Bahena WPtel: [phone] [facility] Follow up 09/12/2013 Patient Education: Patient Medication Summary Completed 09/12/2013 Patient Education: Hypertension Completed 09/12/2013 Appointment: Kar[place] Bahena WPtel: [phone] [facility] Follow up 08/21/2013 Visit Plan: Hypertension - [...] PT/INR 08/15/2013 Appointment: Kar[place] Bahena WPtel: [phone] [facility] Follow up 08/15/2013 Patient Education: Patient Medication [...] of urethra. 08/01/2013 Appointment: Kar[place] Bahena WPtel: [facility] [place] Follow up 08/01/2013 Patient Education: Patient Medication Summary Completed 08/01/2013 Patient Education: Hypertension Completed 08/01/2013 Appointment: Laura Colin WPtel: [facility]5 [phone] [place] Lab Draw 07/29/2013 Patient Education: Patient Medication Summary Completed 07/29/2013 Visit Plan: Osteoporosis-prolia on june 25-patient to let Dr Hansen know 07/01/2013 Appointment: Laura Colin WPtel: [phone] [place] Follow up 07/01/2013 Appointment: Kar[place] Bahena WPtel: [address] [place], [place] [address] [place] Follow up 07/01/2013 Patient Education: Patient Medication Summary Completed 07/01/2013 Appointment: Kar[place] Bahena WPtel: [address] [place], [place] [address] [place] Follow up 06/25/2013 Appointment: Karma Bahena WPtel: [address] [place], [place] [address] [place] Lab Draw 06/20/2013 Patient Education: Patient Medication Summary Completed 06/20/2013 Appointment: Kar[place] Bahena WPtel: [address] [place], [place] [address] [place] Lab Draw 06/19/2013 Visit Plan: Atrial [...] at home. 05/29/2013 Appointment: Karma Bahena WPtel: [facility]5 [place] [phone] Follow up 05/29/2013 Patient Education: Patient Medication [...] at home. 05/15/2013 Appointment: Karma Bahena WPtel: [facility]2 [facility] [place] Other 05/15/2013 Patient Education: Patient Medication [...] today. 04/23/2013 Appointment: Kar[place] Bahena WPtel: [phone] [facility] Other 04/23/2013 Patient Education: Patient [...] this regimen. 03/21/2013 Appointment: Laura Colin WPtel: [facility]5 [place] [phone] Follow up 03/21/2013 Patient Education: Patient Medication [...] becoming uncontrolled. 01/16/2013 Appointment: Karma Bahena WPtel: [address] [place], [place] [phone] Follow up 01/16/2013 Patient Education: Patient Medication Summary Completed 01/16/2013 Patient Education: Hypertension Completed 01/16/2013 Visit Plan: Wound Instructions - Pt was instruced to keep the wound clean, wash with antibacterial soap, use triple antibiotic ointment, call if redness, pustular drainage, or any other acute conerns. 12/19/2012 Appointment: Karma Bahena WPtel: [address] [place], [place] [phone] Other 12/19/2012 Patient Education: Patient Medication Summary Completed 12/19/2012 Patient Education: Patient Medication Summary Completed 12/17/2012 Visit Plan: Cellulitis - improved- monitor symptoms - need to check handon Monday morning. 12/14/2012 Appointment: Karma Bahena WPtel: [address] [place], [place] [phone] Follow up 12/14/2012 Patient Education: Patient Medication Summary Completed 12/14/2012 Visit Plan: Cellulitis - improved- monitor symptoms - need to check handon Jeremiah morning. 12/12/2012 Appointment: Kar[place] Bahena WPtel: [facility]5 [facility] Work-in 12/12/2012 Patient Education: Patient Medication Summary [...] warmth, discharge. 12/10/2012 Appointment: Kar[place] Bahena WPtel: [facility]5 [facility] Other 12/10/2012 Patient Education: Patient Medication Summary [...] becoming uncontrolled. 10/30/2012 Appointment: Kar[place] Bahena WPtel: [facility] Follow up 10/30/2012 Patient Education: Patient Medication Summary Completed 10/30/2012 Appointment: Laura Colin WPtel: [address] [place], [place] [phone] [place] Lab Draw 09/13/2012 Patient Education: Patient [...] 3.5. 08/08/2012 Appointment: Kar[place] Bahena WPtel: [phone] [facility] Other 08/08/2012 Patient Education: Patient Medication Summary [...] this regimen. 07/11/2012 Appointment: Kar[place] Bahena WPtel: [phone] [facility] swelling, leg edema Other 07/11/2012 Patient Education: [...] vaginally. 05/08/2012 Appointment: Karma Bahena WPtel: [phone] [facility] Follow up 05/08/2012 Patient Education: Patient Medication [...] during hospitalization. 04/18/2012 Appointment: Karma Bahena WPtel: [address] [place], [place] [phone] Follow up 04/18/2012 Patient Education: Patient Medication Summary Completed 04/18/2012 Patient Education: High Blood Pressure: Essential Hypertension Completed 04/18/2012 Appointment: Karma Bahena WPtel: [address] [place], [place] [phone] [place] Follow up 04/09/2012 Appointment: Kar[place] Bahena WPtel: [address] [place] [address] [place] Lab Draw 04/04/2012 Appointment: Laura Colin WPtel: [address] [place], [place] [phone] [place] Lab Draw 03/19/2012 Visit Plan: Abdominal [...] Hypertension Completed 03/13/2012 Appointment: Karma Bahena WPtel: [facility]7 [facility] Lab Draw 03/08/2012 Patient Education: Patient Medication [...] rehab. 02/20/2012 Appointment: Kar[place] Bahena WPtel: [phone] [facility] Other 02/20/2012 Patient Education: Patient [...] becoming uncontrolled. 02/13/2012 Appointment: Laura Colin WPtel: [facility]1 [phone] Other 02/13/2012 Patient Education: Patient Medication Summary Completed 02/13/2012 Appointment: Karma Bahena WPtel: [facility]4 [facility] Lab Draw 02/07/2012 Visit Plan: [...] the medication. 02/01/2012 Appointment: Kar[place] Bahena WPtel: 101 [facility] [place] Other 02/01/2012 Patient Education: Patient Medication Summary Completed 02/01/2012 Patient Education: High Blood Pressure: Essential Hypertension Completed 02/01/2012 Appointment: Karma Bahena WPtel: [phone] [facility] [place] Lab Draw 01/17/2012 Visit Plan: Atrial [...] home. 2012 Appointment: Karma Bahena WPtel: [phone] [facility] Other 2012 Patient Education: Patient Medication Summary Completed 2012 Patient Education: High Blood Pressure: Essential Hypertension Completed 2012 Appointment: Karma Bahena WPtel: [phone] [facility] Follow up 12/20/2011 Visit Plan: [...] emergency room. 12/01/2011 Appointment: Karma Bahena WPtel: [phone] [facility] Other 12/01/2011 Patient Education: Patient [...] infection resolves. 11/23/2011 Appointment: Laura Colin WPtel: [address] [place], [place] [phone] [place] Other 11/23/2011 Patient Education: Patient Medication Summary Completed 11/23/2011 Patient Education: High Blood Pressure: Essential Hypertension Completed 11/23/2011 Visit Plan: Cerumen Impaction - The impacted cerumen was removed with the use of either ear currette alone or in combination with ear curette and water pick. The patient tolerated the procedure without incident and had improvement in hearing 10/17/2011 Appointment: Laura Colin WPtel: [address] [place], [place] [phone] [place] Other 10/17/2011 Patient Education: Patient Medication [...] by irrigation. 10/03/2011 Appointment: Karma Bahena WPtel: [address] [place] [address] Other 10/03/2011 Patient Education: Patient Medication Summary [...] is evidence. 08/08/2011 Appointment: Karma Bahena WPtel: [facility]5 [address] Other 08/08/2011 Patient Education: Patient Medication Summary Completed 08/08/2011 Patient Education: High Blood Pressure: Essential Hypertension Completed 08/08/2011 Visit Plan: Muscle cramps - the cramps are a little better, continue with the Diltiazem and it is okay to use the over the counter supplement with quinine - but use it sparingly. For the rash, use the prescripti on the tetryl boiling tub operator prescribed for the itching , call if the rash is not improved. Torticollis - continue with physical therapy, call if the neck muscles do not continue to show improvement. 05/09/2011 Appointment: Karma Bahena WPtel: [address] [place] [address] Other 05/09/2011 Patient Education: Patient Medication Summary [...] water aerobics. 03/29/2011 Appointment: Karma Bahena WPtel: [facility] [address] Other 03/29/2011 Patient Education: Patient Medication Summary Completed 03/29/2011 Appointment: Karma Bahena WPtel: [address] [place] [address] Other 03/17/2011 Visit Plan: UTI - UA negative. Urge incontinence- restart on the vesicare- at 5 mg. Continue to avoid caffinated foods/fluids. Peripheral Neuropathy - per guidance and control system engineer report - Continue with the metanex. Loss of weight - WEIGHT CHECK IN 2 WKS. Palpitations- likely stress induced. If the symptoms worsen, call the office. 03/15/2011 Appointment: Karma Bahena WPtel: [address] [place] [address] Follow up 03/15/2011 Patient Education: Patient Medication [...] avoid caffinated foods/fluids. Peripheral Neuropathy - per guidance and control system engineer report - Continue with the metanex. Loss [...] therefore, would not change the medication. . SVT-klijb-vin zpack-call if symptoms do not resolve or [...] For the rash, use the prescription the tetryl boiling tub operator prescribed for the itching , call [...] heart rate. Osteoarthritis - send pt to [facility] physical therapy for gereral osteoarhtritis program for [...] had left kidney and ureter removed in [place]- doing well . Hematuria - check UA. [...] a referral to dr. jeff - RE ayah. Atrial Fibrillation - pt on chronic anticoagulation [...] the treatment when you get back from [place] - will also ask him about doing [...] the treatment when you get back from [place] - will also ask him about doing [...]
--- OUTSIDE RECORDS SUMMARY | 2018-12-10 20:10 | XMS REPORT | CCD ---
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 Unknown Has never used illegal drugs 03/15/2011 Allergies, Adverse Reactions, Alerts Substance Reaction Codes Entered Date Inactivated Date Status BACTINE RxNorm: 765232 03/04/2011 No Inactive Date Active MICONAZOLE RxNorm: 6932 03/04/2011 No Inactive Date Active NEOSPORIN RxNorm: 304642 03/04/2011 No Inactive Date Active NEOMYCIN RxNorm: 7299 03/04/2011 No Inactive Date Active CORTISPORIN RxNorm: 29822 03/04/2011 No Inactive Date Active bactrim RxNorm: 737794 03/13/2012 No Inactive Date Active AUGMENTIN diarrhea RxNorm: 856297 2016 No Inactive Date Active METRONIDAZOLE Unknown [...] 401.9 ICD-10: I10 Active 12/25/2013 Unknown Other medical terminologist (current) drug therapy ICD-9: V58.83 ICD-10: Z79.899 [...] 706.2 ICD-10: L72.0 Active 02/01/2016 Unknown Other medical terminologist (current) drug therapy ICD-9: V58.69 ICD-10: Z79.899 [...] ICD-9: 401.9 ICD-10: I10 12/25/2013 Active Other [facility] (current) drug therapy ICD-9: V58.83 ICD-10: Z79.899 [...] Fill Instructions Keflex 500 mg capsule RxNorm: 637080 1 Capsule(s) PO TID 09/12/2018 09/18/2018 Active cyclobenzaprine 5 mg tablet RxNorm: 417008 Tablet(s) TABLET(S) 1/2 TABLET(S) PO Q8 NEEDED MUSCLE SPASMS 08/14/2018 No Stop Date Active spironolactone 25 mg tablet RxNorm: 249386 1 Tablet(s) PO BID 08/14/2018 11/06/2019 Active see new directions and quantity Nitro-Bid 2 % transdermal ointment RxNorm: 087089 1 dime size amount TD BID to fingers and toes 08/14/2018 09/12/2018 Inactive cyclobenzaprine 5 mg tablet RxNorm: 433138 TABLET(S) 1/2 TABLET(S) PO Q8 NEEDED MUSCLE SPASMS 08/06/2018 08/13/2018 Inactive amlodipine 5 mg tablet RxNorm: 703787 1/2 Tablet(s) PO daily may take an extra 1/2 pill at the end of the day if blood pressure is elevated over 140 07/26/2018 12/22/2018 Active cefdinir 300 mg capsule RxNorm: 096935 1 Capsule(s) PO BID 06/20/2018 06/26/2018 Inactive cefdinir 300 mg capsule RxNorm: 671913 1 Capsule(s) PO BID 06/20/2018 06/19/2018 Inactive metoprolol succinate ER 50 mg tablet,extended release 24 hr RxNorm: 336221 1.5 Tablet(s) daily 06/15/2018 03/11/2019 Active sucralfate 100 mg/mL oral suspension RxNorm: 453898 2 Teaspoon(s) PO TID as needed with reflux symptoms 06/04/2018 No Stop Date Active Vesicare 10 mg tablet RxNorm: 667527 1 TABLET(S) PO EVERY OTHER DAY 05/14/2018 01/08/2019 Active levothyroxine 50 mcg tablet RxNorm: 744987 1 TABLET(S) PO DAILY 04/30/2018 07/28/2018 Inactive Patient requests 90 days supply spironolactone 25 mg tablet RxNorm: 824154 1 Tablet(s) PO daily 03/14/2018 08/13/2018 Inactive levothyroxine 50 mcg tablet RxNorm: 600037 1 Tablet(s) PO daily 02/01/2018 04/29/2018 Inactive Eliquis 2.5 mg tablet RxNorm: 4763661 1 Tablet(s) PO BID 01/31/2018 02/20/2018 Inactive levothyroxine 50 mcg tablet RxNorm: 144936 1 Tablet(s) PO daily 01/31/2018 01/31/2018 Inactive Eliquis 2.5 mg tablet RxNorm: 6166172 TAKE 1 TABLET BY MOUTH TWICE DAILY 01/23/2018 07/21/2018 Inactive metoprolol succinate ER 50 mg tablet,extended release 24 hr RxNorm: 257101 1 TABLET(S) PO DAILY 01/23/2018 01/30/2018 Inactive metoprolol succinate ER 50 mg tablet,extended release 24 hr RxNorm: 586533 1.5 Tablet(s) daily 01/22/2018 06/14/2018 Inactive lisinopril 20 mg tablet RxNorm: 380832 1/2 Tablet(s) daily 01/19/2018 01/21/2018 Inactive Patient requests 90 days supply Singulair 10 mg tablet RxNorm: 083737 TAKE 1 TABLET BY MOUTH AT BEDTIME 01/18/2018 04/17/2018 Inactive Patient requests 90 days supply Singulair 10 mg tablet RxNorm: 749670 Tablet(s) PO 01/17/2018 01/17/2018 Inactive digoxin 125 mcg tablet RxNorm: 548603 1 TABLET(S) PO DAILY 01/03/2018 12/28/2018 Active Symbicort 160 mcg-4.5 mcg/actuation HFA aerosol inhaler RxNorm: 8316831 2 Puff(s) INH BID 12/14/2017 04/12/2018 Inactive please dispense an aerochamber for patient as well as her symbicort pantoprazole 40 mg tablet,delayed release RxNorm: 519916 1 Tablet(s) PO daily 12/14/2017 12/08/2018 Active cyclobenzaprine 5 mg tablet RxNorm: 491940 Tablet(s) 1/2 TABLET(S) PO Q8 NEEDED MUSCLE SPASMS 12/14/2017 08/05/2018 Inactive ProAir RespiClick 90 mcg/actuation breath activated RxNorm: 1079284 1-2 INH QID as needed shortness of breath 12/14/2017 07/11/2018 Inactive cyclobenzaprine 5 mg tablet RxNorm: 777373 1/2 TABLET(S) PO Q8 NEEDED MUSCLE SPASMS 12/08/2017 12/13/2017 Inactive betamethasone dipropionate 0.05 % topical ointment RxNorm: 571849 1 Application TOP TID use topically on the rectal tissue three times daily x 1 week then as needed 11/13/2017 No Stop Date Active Premarin 0.625 mg/gram vaginal cream RxNorm: 662892 1/2 GRAM(S) VAG TIW 11/13/2017 12/12/2017 Inactive cyclobenzaprine 5 mg tablet RxNorm: 827455 1/2 TABLET(S) PO Q8 NEEDED MUSCLE SPASMS 10/17/2017 12/07/2017 Inactive Vesicare 10 mg tablet RxNorm: 611335 1 Tablet(s) PO every other day 10/17/2017 04/14/2018 Inactive lisinopril 20 mg tablet RxNorm: 694021 1 TABLET(S) PO DAILY 10/02/2017 01/18/2018 Inactive Patient requests 90 days supply levothyroxine 75 mcg tablet RxNorm: 764386 1 TABLET(S) PO DAILY 09/25/2017 01/30/2018 Inactive spironolactone 25 mg tablet RxNorm: 394352 1 TABLET(S) PO DAILY 08/16/2017 03/13/2018 Inactive cyclobenzaprine 5 mg tablet RxNorm: 228038 1/2 TABLET(S) PO Q8 NEEDED MUSCLE SPASMS 08/16/2017 10/16/2017 Inactive Eliquis 2.5 mg tablet RxNorm: 6699107 TAKE 1 TABLET BY MOUTH TWICE DAILY 07/26/2017 01/21/2018 Inactive cyclobenzaprine 5 mg tablet RxNorm: 894401 1/2 Tablet(s) PO Q8 as needed muscle spasms 06/19/2017 08/15/2017 Inactive lisinopril 20 mg tablet RxNorm: 342875 1 TABLET(S) PO DAILY 06/12/2017 10/01/2017 Inactive metoprolol succinate ER 50 mg tablet,extended release 24 hr RxNorm: 910837 1 TABLET(S) PO DAILY 04/07/2017 01/01/2018 Inactive spironolactone 25 mg tablet RxNorm: 592561 1 Tablet(s) PO daily 03/27/2017 03/13/2018 Inactive acyclovir 800 mg tablet RxNorm: 823717 1 Tablet(s) PO TID 03/21/2017 03/30/2017 Inactive acyclovir 800 mg tablet RxNorm: 657801 1 Tablet(s) PO TID 03/21/2017 03/20/2017 Inactive levothyroxine 75 mcg tablet RxNorm: 499852 1 Tablet(s) PO daily 03/16/2017 09/11/2017 Inactive spironolactone 25 mg tablet RxNorm: 782046 1 TABLET(S) PO DAILY 02/09/2017 03/26/2017 Inactive lisinopril 20 mg tablet RxNorm: 962386 1 TABLET(S) PO DAILY 01/02/2017 05/31/2017 Inactive Zithromax Z-Claudio 250 mg tablet RxNorm: 452321 1 Tablet(s) PO UD 11/29/2016 12/03/2016 Inactive ZPACK Keflex 500 mg capsule RxNorm: 029010 1 Capsule(s) PO TID 11/23/2016 12/02/2016 Inactive guaifenesin 400 mg tablet RxNorm: 809977 1 Tablet(s) PO Q6 as needed 11/23/2016 11/27/2016 Inactive omeprazole 40 mg capsule,delayed release RxNorm: 654138 1 Capsule(s) PO QPM 11/02/2016 12/13/2017 Inactive digoxin 125 mcg tablet RxNorm: 870144 1 TABLET(S) PO DAILY 10/27/2016 07/23/2017 Inactive cyclobenzaprine 5 mg tablet RxNorm: 574873 1/2 Tablet(s) PO Q8 PRN 10/25/2016 06/18/2017 Inactive prn muscle spasms Augmentin 500 mg-125 mg tablet RxNorm: 921132 1 Tablet(s) PO BID 10/24/2016 11/02/2016 Inactive Lasix 20 mg tablet RxNorm: 071178 Tablet(s) PRN one to two times a week if needed 07/27/2016 No Stop Date Active Patient requests 90 days supply spironolactone 25 mg tablet RxNorm: 774548 1 Tablet(s) PO daily 07/27/2016 02/08/2017 Inactive Diflucan 150 mg tablet RxNorm: 791308 1 Tablet(s) PO daily 07/27/2016 08/02/2016 Inactive lisinopril 20 mg tablet RxNorm: 484496 1 Tablet(s) PO daily 07/12/2016 01/01/2017 Inactive Lasix 20 mg tablet RxNorm: 920940 1 TABLET(S) PO EVERY OTHER DAY EVERY OTHER DAY 06/10/2016 07/26/2016 Inactive Patient requests 90 days supply potassium chloride ER 10 mEq capsule,extended release RxNorm: 504741 1 CAPSULE(S) PO EVERY OTHER DAY 06/10/2016 07/26/2016 Inactive Patient requests 90 days supply potassium chloride ER 10 mEq capsule,extended release RxNorm: 655839 1 Capsule(s) PO every other day 06/09/2016 06/09/2016 Inactive Lasix 20 mg tablet RxNorm: 929214 1 Tablet(s) PO every other day every other day 06/09/2016 06/09/2016 Inactive levothyroxine 88 mcg tablet RxNorm: 474612 1 Tablet(s) PO daily 05/11/2016 11/06/2016 Inactive Premarin 0.625 mg/gram vaginal cream RxNorm: 237231 1/2 Gram(s) VAG TIW 03/24/2016 03/18/2017 Inactive metoprolol succinate ER 50 mg tablet,extended release 24 hr RxNorm: 787716 1 Tablet(s) PO daily 03/24/2016 03/18/2017 Inactive pantoprazole 40 mg tablet,delayed release RxNorm: 489053 1 Tablet(s) PO daily 02/08/2016 11/01/2016 Inactive betamethasone dipropionate 0.05 % topical ointment RxNorm: 668038 1 Application TOP TID use topically on the rectal tissue three times daily x 1 week then as needed 02/02/2016 11/12/2017 Inactive pantoprazole 40 mg tablet,delayed release RxNorm: 842770 1 Tablet(s) PO daily 2016 02/07/2016 Inactive alprazolam 0.25 mg tablet RxNorm: 460171 1 Tablet(s) PO Q6 as needed 12/04/2015 No Stop Date Active Vesicare 10 mg tablet RxNorm: 518265 1 Tablet(s) PO every other day 11/03/2015 10/16/2017 Inactive alprazolam 0.25 mg tablet RxNorm: 499862 1 Tablet(s) PO Q6 as needed 11/03/2015 12/03/2015 Inactive Premarin 0.625 mg/gram vaginal cream RxNorm: 327358 1/2 Gram(s) VAG TIW 11/03/2015 03/23/2016 Inactive levothyroxine 88 mcg tablet RxNorm: 456832 1 Tablet(s) PO daily 11/03/2015 05/10/2016 Inactive Diflucan 150 mg tablet RxNorm: 508892 1 Tablet(s) PO daily 10/19/2015 10/25/2015 Inactive cetirizine 10 mg chewable tablet RxNorm: 7448178 1 Tablet(s) PO daily 10/13/2015 11/11/2015 Inactive cetirizine 10 mg capsule RxNorm: 0986536 1 Capsule(s) PO daily 10/13/2015 11/11/2015 Inactive Vesicare 10 mg tablet RxNorm: 720559 1/2 TABLET(S) PO BID 09/21/2015 11/02/2015 Inactive betamethasone dipropionate 0.05 % topical ointment RxNorm: 740387 1 Application TOP TID use topically on the rectal tissue three times daily x 1 week then as needed 09/15/2015 02/01/2016 Inactive lisinopril 20 mg tablet RxNorm: 644407 1 Tablet(s) PO daily 09/01/2015 07/11/2016 Inactive digoxin 125 mcg tablet RxNorm: 380491 1 Tablet(s) PO daily 09/01/2015 08/25/2016 Inactive Augmentin 500 mg-125 mg tablet RxNorm: 021405 1 Tablet(s) PO TID 05/26/2015 06/04/2015 Inactive Pyridium 200 mg tablet RxNorm: 2496317 1 Tablet(s) PO TID 05/26/2015 05/27/2015 Inactive levothyroxine 88 mcg tablet RxNorm: 063944 1 Tablet(s) PO daily except 1/2 pill on monday and 05/07/2015 11/02/2015 Inactive digoxin 125 mcg tablet RxNorm: 431594 1 Tablet(s) PO daily 05/07/2015 08/31/2015 Inactive lisinopril 20 mg tablet RxNorm: 810965 1 TABLET(S) PO BID 04/13/2015 09/01/2015 Inactive Coumadin 1 mg tablet RxNorm: 451450 1 TABLET(S) PO DAILY 03/31/2015 08/31/2015 Inactive Coumadin 2 mg tablet RxNorm: 259648 4MG IN AM AND 1MG AT NIGHT TABLET(S) PO DAILY DIRECTED. 03/31/2015 08/31/2015 Inactive levothyroxine 88 mcg tablet RxNorm: 743053 1 Tablet(s) PO daily 03/23/2015 05/06/2015 Inactive alprazolam 0.25 mg tablet RxNorm: 082809 Tablet(s) PO 03/23/2015 04/06/2015 Inactive levothyroxine 88 mcg tablet RxNorm: 326033 1 Tablet(s) PO daily 01/28/2015 03/22/2015 Inactive levothyroxine 88 mcg tablet RxNorm: 680863 1 Tablet(s) PO daily 01/28/2015 01/27/2015 Inactive diltiazem ER 120 mg capsule,extended release RxNorm: 426230 1 Capsule(s) PO BID patient would like 4 months at a time 01/06/2015 09/28/2015 Inactive digoxin 125 mcg tablet RxNorm: 017186 Tablet(s) 1 TABLET(S) PO DAILY 12/24/2014 12/23/2014 Inactive pt will be paying [employer] (On $4 list)Patient requests 90 days supply digoxin 125 mcg tablet RxNorm: 641170 Tablet(s) 1 TABLET(S) PO DAILY M W F Sat and 2 tabs on T 12/24/2014 05/06/2015 Inactive pt will be paying [employer] (On $4 list)Patient requests 90 days supply dicyclomine 20 mg tablet RxNorm: 493757 1 Tablet(s) PO daily 11/17/2014 08/31/2015 Inactive one ac dinner and up to tid prn levothyroxine 88 mcg tablet RxNorm: 474059 1 Tablet(s) PO daily 11/03/2014 01/27/2015 Inactive Premarin 0.625 mg/gram vaginal cream RxNorm: 312486 1 APPLICATION VAG 1 APPLICATOR PER VAGINA 3 TIMES PER WEEK 11/03/2014 07/30/2015 Inactive digoxin 125 mcg tablet RxNorm: 599320 1 TABLET(S) PO DAILY 09/29/2014 12/23/2014 Inactive pt will be paying [employer] (On $4 list)Patient requests 90 days supply digoxin 125 mcg tablet RxNorm: 997339 1 TABLET(S) PO DAILY 07/11/2014 04/06/2015 Inactive Vesicare 10 mg tablet RxNorm: 696402 1/2 Tablet(s) PO BID 05/20/2014 05/14/2015 Inactive Levaquin 500 mg tablet RxNorm: 847473 1 Tablet(s) PO daily 05/06/2014 05/08/2014 Inactive take probiotic BID while on ABT Levaquin 500 mg tablet RxNorm: 964092 1 Tablet(s) PO daily 05/02/2014 05/05/2014 Inactive take probiotic BID while on ABT diltiazem ER 120 mg capsule,extended release RxNorm: 826970 1 Capsule(s) PO BID patient would like 4 months at a time 04/29/2014 2015 Inactive Vesicare 10 mg tablet RxNorm: 323876 1/2 Tablet(s) PO BID 04/29/2014 05/19/2014 Inactive lisinopril 20 mg tablet RxNorm: 363825 1 Tablet(s) PO BID 03/20/2014 03/14/2015 Inactive diltiazem 90 mg tablet RxNorm: 877702 1/2 TABLET(S) PO QPM 03/04/2014 04/28/2014 Inactive also 180 q am diltiazem ER 120 mg capsule,extended release RxNorm: 577885 1 Capsule(s) PO daily patient would like 4 months at a time 01/29/2014 04/28/2014 Inactive Vesicare 10 mg tablet RxNorm: 723307 1 Tablet(s) PO QHS 01/14/2014 04/28/2014 Inactive Coumadin 2 mg tablet RxNorm: 549443 4mg in AM and 1mg at night Tablet(s) PO daily as directed. 12/25/2013 03/30/2015 Inactive Metanx 3 mg-35 mg-2 mg tablet RxNorm: 1 Tablet(s) PO daily 12/25/2013 11/02/2015 Inactive digoxin 125 mcg tablet RxNorm: 181186 1 Tablet(s) PO daily 12/25/2013 09/28/2014 Inactive pt will be paying [employer] (On $4 list) Coumadin 2 mg tablet RxNorm: 825141 7.5 wed 5mg other Tablet(s) PO as directed. 12/03/2013 12/24/2013 Inactive omeprazole 20 mg tablet,delayed release RxNorm: 422542 1 Tablet(s) PO BID 11/27/2013 04/28/2014 Inactive Coumadin 2 mg tablet RxNorm: 605365 5 mg daily Tablet(s) PO as directed. 11/26/2013 12/02/2013 Inactive 5 mg daily Xanax 0.25 mg tablet RxNorm: 967744 1 Tablet(s) PO Q6 PRN 11/11/2013 12/25/2013 Inactive alprazolam 0.25 mg tablet RxNorm: 244391 tablet oral 11/11/2013 03/22/2015 Inactive sucralfate 1 gram tablet RxNorm: 771786 1 Tablet(s) PO AC & HS 11/04/2013 11/03/2013 Inactive sucralfate 1 gram tablet RxNorm: 292453 1 Tablet(s) PO AC & HS 11/04/2013 01/02/2014 Inactive Synthroid 100 mcg tablet RxNorm: 267335 1 Tablet(s) PO daily 10/31/2013 10/25/2014 Inactive Synthroid 100 mcg tablet RxNorm: 374103 1 Tablet(s) PO daily 09/30/2013 10/29/2013 Inactive Vesicare 10 mg tablet RxNorm: 202001 1 Tablet(s) PO QHS 09/30/2013 01/13/2014 Inactive Lotemax 0.5 % eye ointment RxNorm: 9796224 ointment opht 09/06/2013 12/10/2013 Inactive levothyroxine 100 mcg tablet RxNorm: 928838 tablet oral 09/05/2013 11/02/2014 Inactive Synthroid 100 mcg tablet RxNorm: 557580 1 Tablet(s) PO daily 09/05/2013 09/29/2013 Inactive Prolia 60 mg/mL Sub-Q Syringe RxNorm: 402322 1 Milliliter(s) SQ 06/25/2013 11/02/2015 Inactive dicyclomine 20 mg tablet RxNorm: 391954 1 Tablet(s) PO daily 06/24/2013 06/18/2014 Inactive one ac dinner and up to tid prn omeprazole 20 mg tablet,delayed release RxNorm: 233651 1 Tablet(s) PO BID 06/24/2013 11/26/2013 Inactive Cipro 500 mg tablet RxNorm: 092904 1 Tablet(s) PO BID 06/20/2013 06/26/2013 Inactive diltiazem ER 120 mg capsule,extended release RxNorm: 654573 1 Capsule(s) PO daily patient would like 4 months at a time 06/03/2013 01/28/2014 Inactive Coumadin 2 mg tablet RxNorm: 613619 as directed Tablet(s) PO as directed. 05/29/2013 11/25/2013 Inactive 5 mg daily Synthroid 88 mcg tablet RxNorm: 695326 1 Tablet(s) PO daily 04/24/2013 04/23/2013 Inactive Synthroid 88 mcg tablet RxNorm: 623749 1 Tablet(s) PO daily 04/24/2013 07/28/2013 Inactive Premarin 0.625 mg/gram vaginal cream RxNorm: 790036 1 Application VAG 1 applicator per vagina 3 times per week 04/23/2013 04/17/2014 Inactive Influenza Virus Vaccine 0.5 mL RxNorm: IM 04/23/2013 04/23/2013 Inactive digoxin 125 mcg tablet RxNorm: 312380 1 Tablet(s) PO daily 02/20/2013 04/20/2013 Inactive pt will be paying [employer] (On $4 list) Digox 125 mcg tablet RxNorm: 6234209 tablet oral 02/13/2013 03/20/2014 Inactive digoxin 125 mcg tablet RxNorm: 873406 1 Tablet(s) PO daily 02/13/2013 02/19/2013 Inactive diltiazem 90 mg tablet RxNorm: 696190 1/2 Tablet(s) PO QPM 02/13/2013 02/07/2014 Inactive also 180 q am Levoxyl 75 mcg tablet RxNorm: 008585 1 Tablet(s) PO 01/16/2013 04/23/2013 Inactive Coumadin 2 mg tablet RxNorm: 449872 6mg daily except 3mg on mon and mon Tablet(s) PO 01/15/2013 05/28/2013 Inactive 5 mg daily Coumadin 2 mg tablet RxNorm: 007127 6mg daily Tablet(s) PO 12/21/2012 01/14/2013 Inactive 5 mg daily silver sulfadiazine 1 % Topical Cream RxNorm: 433385 TOP apply to affected area with each dressing change 12/19/2012 12/25/2013 Inactive cephalexin 500 mg tablet RxNorm: 621908 1 Tablet(s) PO TID 12/11/2012 12/17/2012 Inactive digoxin 125 mcg tablet RxNorm: 3210300 1 Tablet(s) PO daily 10/30/2012 02/12/2013 Inactive digoxin 125 mcg tablet RxNorm: 4123693 2 tab tue th one other days Tablet(s) PO daily 10/23/2012 10/29/2012 Inactive lisinopril 10 mg tablet RxNorm: 252324 1 Tablet(s) PO daily 10/17/2012 08/14/2013 Inactive Cipro 500 mg tablet RxNorm: 090648 1 Tablet(s) PO BID 09/13/2012 09/19/2012 Inactive Coumadin 1 mg tablet RxNorm: 873299 1 Tablet(s) PO daily 09/03/2012 09/02/2012 Inactive Coumadin 1 mg tablet RxNorm: 003899 1 Tablet(s) PO daily 09/03/2012 12/21/2012 Inactive Coumadin 2 mg tablet RxNorm: 496955 Tablet(s) PO 07/25/2012 12/20/2012 Inactive 5 mg daily digoxin 125 mcg tablet RxNorm: 8911452 1 Tablet(s) PO daily 06/28/2012 10/22/2012 Inactive Coumadin 2 mg tablet RxNorm: 641956 Tablet(s) PO 06/27/2012 07/24/2012 Inactive 5mg daily except 4mg on monday Coumadin 2 mg tablet RxNorm: 897739 Tablet(s) PO 06/19/2012 06/26/2012 Inactive 5mg e mon thur sat sun4mg mon frid(has 2mg and 1 mg tab) digoxin 125 mcg tablet RxNorm: 9493162 1 Tablet(s) PO daily 05/29/2012 06/27/2012 Inactive Coumadin 2 mg tablet RxNorm: 039649 Tablet(s) PO 05/15/2012 06/18/2012 Inactive 5mg tue thur sat sun4mg mon frid(has 2mg and 1 mg tab) Coumadin 2 mg tablet RxNorm: 097825 Tablet(s) PO 04/25/2012 05/14/2012 Inactive 5mg tue thru sat4mg mon frid sun(has 2mg and 1 mg tab) Metanx 3 mg-35 mg-2 mg tablet RxNorm: 1 Tablet(s) PO BID 04/18/2012 12/24/2013 Inactive dicyclomine 20 mg tablet RxNorm: 763758 1 Tablet(s) PO 04/18/2012 06/23/2013 Inactive one ac dinner and up to tid prn digoxin 125 mcg tablet RxNorm: 9978351 Tablet(s) PO daily except .25 on Tuesdays and 04/09/2012 05/28/2012 Inactive omeprazole 20 mg tablet,delayed release RxNorm: 618652 1 Tablet(s) PO BID 04/09/2012 04/03/2013 Inactive digoxin 125 mcg tablet RxNorm: 4365207 1 Tablet(s) PO UD daily except none on Tuesdays and 03/13/2012 04/08/2012 Inactive Premarin 0.625 mg/gram Vaginal Cream RxNorm: 223444 1 Application VAG 1 applicator per vagina 3 times per week 02/20/2012 02/13/2013 Inactive omeprazole 20 mg tablet,delayed release RxNorm: 546998 1 Tablet(s) PO BID 02/13/2012 04/08/2012 Inactive Vesicare 10 mg tablet RxNorm: 318893 1 Tablet(s) PO QHS 02/13/2012 02/06/2013 Inactive Diflucan 150 mg tablet RxNorm: 718104 1 Tablet(s) PO daily 02/13/2012 02/19/2012 Inactive omeprazole 20 mg tablet,delayed release RxNorm: 794235 1 Tablet(s) PO BID 01/06/2012 02/12/2012 Inactive Calcium 600 + D(3) 600 mg (1,500)-200 unit Tab RxNorm: 221758 2 Tablet(s) PO BID 01/06/2012 08/31/2015 Inactive diltiazem 90 mg tablet RxNorm: 057741 1/2 Tablet(s) PO QPM 12/26/2011 02/12/2013 Inactive also 180 q am diltiazem ER 180 mg Cap RxNorm: 994718 1 Capsule(s) PO QAM 12/26/2011 04/08/2012 Inactive 45mg q hs Flagyl 500 mg Tab RxNorm: 177300 1 Tablet(s) PO BID 12/14/2011 12/20/2011 Inactive dicyclomine 10 mg Cap RxNorm: 281557 1 Capsule(s) PO AC & HS 12/01/2011 12/25/2011 Inactive Levaquin 500 mg Tab RxNorm: 237203 1 Tablet(s) PO daily 11/23/2011 11/29/2011 Inactive Rocephin 500 mg Solution for Injection RxNorm: 521115 Inj 11/23/2011 11/23/2011 Inactive acyclovir 400 mg Tab RxNorm: 954840 1 Tablet(s) PO QID 11/10/2011 11/19/2011 Inactive acyclovir 400 mg Tab RxNorm: 992746 1 Tablet(s) PO QID 11/10/2011 11/09/2011 Inactive lisinopril 20 mg Tab RxNorm: 660687 1 Tablet(s) PO daily 10/03/2011 11/27/2011 Inactive lisinopril 20 mg Tab RxNorm: 299025 1 Tablet(s) PO daily 08/08/2011 10/02/2011 Inactive Reclast 5 mg/100 mL IV RxNorm: 210765 Milliliter(s) IV Yearly 06/08/2011 01/16/[address] Hansen managebrad Rocephin 500 mg Solution for Injection RxNorm: 637858 1 Milliliter(s) Inj 03/04/2011 08/08/2011 Inactive Ceftin 500 mg Tab RxNorm: 567154 1 Tablet(s) PO BID 03/04/2011 08/08/2011 Inactive Vitamin D3 1,000 unit tablet RxNorm: 768567 2 Tablet(s) PO daily No Start Date Active Stool Softener 100 mg tablet RxNorm: 2742106 2 Tablet(s) PO QHS No Start Date Active Beano tablet RxNorm: 2-3 Tablet(s) PO as needed No Start Date Active Probiotic Pearls 15 mg (1 billion cell) capsule,delayed release RxNorm: 1 Capsule(s) PO daily No Start Date Active Lipitor 10 mg tablet RxNorm: 161174 1 Tablet(s) PO daily No Start Date Active Miralax 17 gram oral powder packet RxNorm: 703745 1/2 packet PO QHS No Start Date Active multivitamin Tab RxNorm: 1 Tablet(s) PO daily No Start Date Active Tylenol Extra Strength 500 mg tablet RxNorm: 979878 2 Tablet(s) PO as needed No Start Date Active Combigan 0.2 %-0.5 % eye drops RxNorm: 607180 1 Drop(s) OPH BID No Start Date Active 1 drop twice daily left eye Lexapro 5 mg tablet RxNorm: 786355 1 Tablet(s) PO daily No Start Date Active Tatiana Allergy 180 mg tablet RxNorm: 385488 1 Tablet(s) PO daily No Start Date Active Lotemax 0.5 % eye drops,suspension RxNorm: 532915 1 Drop(s) OPH right eye BID No Start Date Active Levoxyl 50 mcg tablet RxNorm: 352486 1 Tablet(s) PO daily No Start Date 01/15/2013 Inactive lisinopril-hydrochlorothiazide 20 mg-25 mg Tab RxNorm: 337117 1 Tablet(s) PO daily No Start Date 08/07/2011 Inactive Metanx 3 mg-35 mg-2 mg tablet RxNorm: 1 Tablet(s) PO daily No Start Date 04/17/2012 Inactive diltiazem CD 120 mg capsule,extended release 24 hr RxNorm: 706405 1 Capsule(s) PO daily No Start Date 09/28/2015 Inactive lisinopril 20 mg tablet RxNorm: 976640 Tablet(s) PO No Start Date Active Lumigan 0.01 % Eye Drops RxNorm: 1123684 1 Drop(s) OPH daily Left eye No Start Date 12/10/2013 Inactive prednisolone acetate 1 % Eye Drops, Susp RxNorm: 1445842 1 Drop(s) OPH BID 1 drop right eye am and hs No Start Date 11/02/2015 Inactive Eliquis 5 mg tablet RxNorm: 5592984 1 Tablet(s) PO BID No Start Date 06/08/2016 Inactive potassium gluconate (bulk) Misc RxNorm: Miscellaneous No Start Date 12/25/2011 Inactive Calcium 600 + D(3) 600 mg (1,500)-200 unit Tab RxNorm: 764593 3 Tablet(s) PO daily No Start Date 2012 Inactive Zyrtec 10 mg tablet RxNorm: 3263756 1 Tablet(s) PO daily No Start Date 08/02/2016 Inactive Synthroid 100 mcg tablet RxNorm: 850929 1 Tablet(s) PO daily No Start Date 09/04/2013 Inactive metoprolol succinate ER 50 mg tablet,extended release 24 hr RxNorm: 893604 1 Tablet(s) PO daily No Start Date 03/23/2016 Inactive Carafate 100 mg/mL oral suspension RxNorm: 806954 2 Teaspoon(s) PO as needed with reflux symptoms No Start Date 06/03/2018 Inactive Metanx 3 mg-35 mg-2 mg tablet RxNorm: 1 Tablet(s) PO daily 2pm No Start Date 11/02/2015 Inactive Lexapro 5 mg tablet RxNorm: 287758 1 Tablet(s) PO daily No Start Date 08/18/2015 Inactive Iron (dried) oral RxNorm: 64388 oral No Start Date 11/02/2015 Inactive timolol 0.5 % Eye Drops RxNorm: 025349 1 Drop(s) OPH daily left eye No Start Date 12/18/2013 Inactive multivitamin Cap RxNorm: 1 Capsule(s) PO daily No Start Date 12/25/2011 Inactive dicyclomine 10 mg Cap RxNorm: 159018 2 Capsule(s) PO daily No Start Date 11/30/2011 Inactive silver sulfadiazine 1 % Topical Cream RxNorm: 066024 TOP apply to affected area with each dressing change No Start Date 12/18/2012 Inactive magnesium oxide 400 mg Tab RxNorm: 830799 1 Tablet(s) PO daily No Start Date 11/02/2015 Inactive Pradaxa 75 mg Cap RxNorm: 3129281 1 Capsule(s) PO BID No Start Date 04/09/2012 Inactive magnesium oxide 400 mg Tab RxNorm: 537887 2 Tablet(s) PO daily magnesium plus zinc No Start Date 12/25/2011 Inactive biotin 1000 mg RxNorm: 1 PO daily No Start Date 12/25/2011 Inactive Synthroid 50 mcg Tab RxNorm: 455742 Tablet(s) PO No Start Date 12/25/2011 Inactive diltiazem ER 180 mg Cap RxNorm: 451355 1 Capsule(s) PO daily No Start Date 12/25/2011 Inactive 1 D 3 1000 iu Oral RxNorm: Oral No Start Date 12/25/2011 Inactive Coumadin 2 mg tablet RxNorm: 193239 Tablet(s) PO No Start Date 04/24/2012 Inactive 5mg tue lnbr1yy mon sat sun(has 2mg and 1 mg tab) dicyclomine 20 mg tablet RxNorm: 405446 Tablet(s) PO No Start Date 04/17/2012 Inactive one ac dinner and up to tid prn lactobacillus acidophilus tablet RxNorm: 1 Tablet(s) PO daily No Start Date 11/03/2015 Inactive Eliquis 2.5 mg tablet RxNorm: 6005575 1 Tablet(s) PO BID No Start Date 07/25/2017 Inactive Levoxyl 75 mcg Tab RxNorm: 896456 1 Tablet(s) PO daily No Start Date 10/02/2011 Inactive digoxin 125 mcg tablet RxNorm: 3535314 1 Tablet(s) PO daily No Start Date 03/12/2012 Inactive pantoprazole 40 mg tablet,delayed release RxNorm: 464081 1 Tablet(s) PO BID No Start Date 01/04/2016 Inactive cyclobenzaprine 5 mg tablet RxNorm: 945410 1/2 Tablet(s) PO Q8 PRN No Start Date 10/24/2016 Inactive diltiazem 90 mg Tab RxNorm: 010849 1/2 Tablet(s) PO QPM No Start Date 12/25/2011 Inactive Mirapex 1 mg Tab RxNorm: 334690 1 Tablet(s) PO QHS No Start Date 12/25/2011 Inactive Xanax 0.25 mg tablet RxNorm: 989685 1 Tablet(s) PO Q6 PRN No Start Date 11/10/2013 Inactive Premarin 0.625 mg/gram Vaginal Cream RxNorm: 946273 1 Application VAG 1 applicator per vagina 3 times per week No Start Date 02/19/2012 Inactive Synthroid 75 mcg Tab RxNorm: 040335 1 Tablet(s) PO daily No Start Date 04/17/2012 Inactive lisinopril 40 mg Tab RxNorm: 421931 1 Tablet(s) PO daily No Start Date 12/25/2011 Inactive Glucosamine Chondroitin Complex Advanced [id number]-1.65mg Tab RxNorm: 2 Tablet(s) PO daily No Start Date 08/08/2011 Inactive famotidine 20 mg tablet RxNorm: 939330 1 Tablet(s) PO QAM No Start Date 11/02/2015 Inactive cranberry extract 250 mg Tab RxNorm: 046512 2 Tablet(s) PO daily No Start Date 08/08/2011 Inactive Vitamin D3 1,000 unit capsule RxNorm: 812021 1 Capsule(s) PO daily No Start Date 08/31/2015 Inactive aspirin 81 mg Tab, Delayed Release RxNorm: 663241 1 Tablet(s) PO daily No Start Date 08/31/2015 Inactive diltiazem ER 120 mg capsule,extended release RxNorm: 086742 1 Capsule(s) PO daily patient would like 4 months at a time No Start Date 06/02/2013 Inactive omeprazole 20 mg Tab, Delayed Release RxNorm: 170549 2 Tablet(s) PO QHS No Start Date 2012 Inactive lisinopril 10 mg tablet RxNorm: 912911 1/2 Tablet(s) PO daily No Start Date 10/16/2012 Inactive Pred Forte 1 % Eye Drops RxNorm: 409579 1 Drop(s) OPH daily right eye No Start Date 12/25/2013 Inactive calcium carbonate 400 mg Chewable Tab RxNorm: 713448 1 Tablet(s) PO daily No Start Date 08/08/2011 Inactive Vesicare 10 mg tablet RxNorm: 429466 1 Tablet(s) PO QHS No Start Date 02/12/2012 Inactive Symbicort 160 mcg-4.5 mcg/actuation HFA aerosol inhaler RxNorm: 5972810 2 Puff(s) INH BID No Start Date 12/13/2017 Inactive potassium 99 mg tablet RxNorm: 1 Tablet(s) PO QPM No Start Date 12/25/2013 Inactive timolol 0.25 % Eye Drops RxNorm: 596102 1 Drop(s) OPH daily Left eye No Start Date 04/17/2012 Inactive diltiazem ER 90 mg capsule,extended release 12 hr RxNorm: 519568 1/2 Capsule(s) PO QPM No Start Date 04/28/2014 Inactive cyclobenzaprine 5 mg Tab RxNorm: 699306 1/2-1 Tablet(s) PO Q8 PRN No Start Date 12/25/2011 Inactive 1/2 - 1 tab q 8hrs prn muscle spasms Medication Administered Medication Codes Instructions Start Date Status Influenza Virus Vaccine 0.5 mL RxNorm: 04/23/2013 No longer Active Rocephin 500 mg Solution for Injection RxNorm: 613526 11/23/2011 No longer Active Immunizations Vaccine Codes [...] hypertension ICD-10: I10 ICD-9: 401.9 01/31/2018 [facility] (current[facility] drug therapy ICD-10: Z79.899 ICD-9: V58.83 [...] hemorrhoids ICD-10: K64.0 ICD-9: 455.6 03/24/2016 Other [place] (current[facility] drug therapy ICD-10: Z79.899 ICD-9: V58.69 [...] Observation Code Item Item Code Result Date Comp Metabolic Ksx697 NA 130 mEq/L 09/12/2018 Comp Metabolic Vcx751 K 4.2 mEq/L 09/12/2018 Comp Metabolic Bwh007 CL 98 mEq/L 09/12/2018 Comp Metabolic Wzr926 CO2 23.0 mEq/L 09/12/2018 Comp Metabolic Hbb046 ANION GAP 13 09/12/2018 Comp Metabolic Zhg072 GLUCOSE 129 mg/dL 09/12/2018 Comp Metabolic Cec127 Creat 1.0 mg/dL 09/12/2018 Comp Metabolic Jxa423 eGFR 58 ml/min/1.73m2 09/12/2018 Comp Metabolic Uso321 BUN 28 mg/dL 09/12/2018 Comp Metabolic Wfo711 B/C Ratio 28.9 Ratio 09/12/2018 Comp Metabolic Tpb440 CALCIUM 9.1 mg/dL 09/12/2018 Comp Metabolic Wxe347 ALK PHOS 59 U/L 09/12/2018 Comp Metabolic Mix369 AST(SGOT) 21 U/L 09/12/2018 Comp Metabolic Xdr399 ALT(SGPT) 19 U/L 09/12/2018 Comp Metabolic Hvq057 BILI T 0.8 mg/dL 09/12/2018 Comp Metabolic Joh651 ALBUMIN 3.9 g/dL 09/12/2018 Comp Metabolic Eaq001 TPRO 6.5 g/dL 09/12/2018 Comp Metabolic Pjr735 GLOB 2.6 g/dL 09/12/2018 Comp Metabolic Ekj645 A/G Ratio 1.5 Ratio 09/12/2018 Comp Metabolic Tme844 Osmo 268 mOsmo 09/12/2018 Tsh Ord6 TSH (3rd IS) 12.84 uIU/mL 09/12/2018 Influenza A+B Ikz046 Influ A+B Negative 09/12/2018 Cbc With Differential [...] 12.3 % 09/12/2018 Cbc With Differential Ord2 [place]% 12.0 % 09/12/2018 Cbc With Differential Ord2 [...] 0.85 K/ul 09/12/2018 Cbc With Differential Ord2 [place] ABS# 0.8 K/ul 09/12/2018 Cbc With Differential Ord2 Eos ABS# 0.1 K/ul 09/12/2018 Cbc With Differential Ord2 Baso ABS# 0.0 K/ul 09/12/2018 Free T4 Wku145 FREE T4 1.10 ng/dL 09/12/2018 Free T4 Gbi444 FREE T4 1.19 ng/dL 05/08/2018 Digoxin Ord9 DIGOXIN 0.6 NG/ML 05/08/2018 Tsh Ord6 TSH (3rd IS) 10.58 uIU/mL 05/08/2018 Tsh Ord6 TSH (3rd IS) 1.07 uIU/mL 01/31/2018 Free T4 Xbb619 FREE T4 1.63 ng/dL 01/31/2018 Digoxin Ord9 DIGOXIN 0.8 NG/ML 01/31/2018 C RAP A SC [id number] Strep A Negative 11/21/2016 Thyroid Antibodies 478356 THYROGLOBULIN ANTIBODY . 11/04/2016 Thyroid Antibodies 666754 THYROGLOBULIN ANTIBODY 919 IU/mL 11/04/2016 Thyroid Antibodies 983074 THYROID PEROXIDASE (TPO) AB . 11/04/2016 Thyroid Antibodies 868526 THYROID PEROXIDASE (TPO) AB 10 IU/mL 11/04/2016 Total T3 Ord42 TT3 0.64 ng/ml 11/03/2016 Free T4 Lxt953 FREE T4 1.39 ng/dL 11/02/2016 Tsh Ord6 [...] Differential Ord2 RDW 13.8 % 05/26/2015 Pt Ben1723 PT 25.0 seconds 05/26/2015 Pt Gtu4773 INR 2.4 05/26/2015 Pt Tus3609 Low Intensity - 1.5-2.0 05/26/2015 Pt Hbk8868 Mod intensity - 2.0-3.0 05/26/2015 Pt Uuo5247 Hi intensity - 3.0-4.0 05/26/2015 Uric Acid [...] Digoxin Ord9 DIGOXIN 0.6 NG/ML 05/06/2015 Pt Bjp6010 PT 23.3 seconds 05/06/2015 Pt Jzg8698 INR 2.1 05/06/2015 Pt Wbt9022 Low Intensity - 1.5-2.0 05/06/2015 Pt Zrq4433 Mod intensity - 2.0-3.0 05/06/2015 Pt Fur5201 Hi intensity - 3.0-4.0 05/06/2015 Free T4 Sku870 FREE T4 1.65 ng/dL 05/06/2015 Comp Metabolic Nli621 NA 132 mEq/L 05/06/2015 Comp Metabolic Aoc980 K 4.1 mEq/L 05/06/2015 Comp Metabolic Jgz660 CL 98 mEq/L 05/06/2015 Comp Metabolic Uyr318 CO2 27.0 mEq/L 05/06/2015 Comp Metabolic Ahb332 ANION GAP 11 05/06/2015 Comp Metabolic Xke305 GLUCOSE 71 mg/dL 05/06/2015 Comp Metabolic Eqd385 Creat 0.7 mg/dL 05/06/2015 Comp Metabolic Yua569 eGFR 82 ml/min/1.73m2 05/06/2015 Comp Metabolic Yvc489 BUN 16 mg/dL 05/06/2015 Comp Metabolic Mxe219 B/C Ratio 22.2 Ratio 05/06/2015 Comp Metabolic Nzi930 CALCIUM 9.4 mg/dL 05/06/2015 Comp Metabolic Sdb793 ALK PHOS 60 U/L 05/06/2015 Comp Metabolic Dff197 AST(SGOT) 22 U/L 05/06/2015 Comp Metabolic Ngw545 ALT(SGPT) 24 U/L 05/06/2015 Comp Metabolic Qmw099 BILI T 0.8 mg/dL 05/06/2015 Comp Metabolic Epa175 ALBUMIN 4.3 g/dL 05/06/2015 Comp Metabolic Muu306 TPRO 7.6 g/dL 05/06/2015 Comp Metabolic Xay698 GLOB 3.3 g/dL 05/06/2015 Comp Metabolic Wmm818 A/G Ratio 1.3 Ratio 05/06/2015 Comp Metabolic Xea939 Osmo 264 mOsmo 05/06/2015 DIGOXIN 0638834 DIGOXIN 1.1 NG/ML 05/15/2013 PT/MC 7069055 PRO TIME 21.7 SEC 05/15/2013 PT/MC 1807188 INR MCMC 2.0 05/15/2013 CHEM 14 2738853 AST 24 U/L 04/23/2013 CHEM 14 2439209 ALT 31 IU/L 04/23/2013 CHEM 14 8547033 BUN 13 MG/DL 04/23/2013 CHEM 14 8400255 ALBUMIN 4.1 GM/DL 04/23/2013 CHEM 14 2788061 CHLORIDE 103 MMOL/L 04/23/2013 CHEM 14 8123138 BILI TOT 0.5 MG/DL 04/23/2013 CHEM 14 4446069 ALK PHOS 44 U/L 04/23/2013 CHEM 14 9500205 SODIUM 137 MMOL/L 04/23/2013 CHEM 14 2173005 CREATININE 0.61 MG/DL 04/23/2013 CHEM 14 0893518 CALCIUM 9.5 MG/DL 04/23/2013 CHEM 14 7583871 POTASSIUM 4.0 MMOL/L 04/23/2013 CHEM 14 7227533 PROT TOT 6.6 GM/DL 04/23/2013 CHEM 14 2354177 GLUCOSE 99 MG/DL 04/23/2013 CHEM 14 4289673 BICARB 27 MMOL/L 04/23/2013 CHEM 14 3861399 ANION GAP 7 MEQ/L 04/23/2013 GFR CALC 4248334 GFR AA >60 ML/MIN 04/23/2013 GFR CALC 7993771 GFR NON-AA >60 ML/MIN 04/23/2013 TSH 1154930 TSH 4.204 uIU/ML 04/23/2013 CBC 9104821 WBC 6.7 10e9/L 04/23/2013 CBC 7653382 RBC 4.19 10e12/L 04/23/2013 CBC 8274332 HGB 13.2 g/dL 04/23/2013 CBC 5767330 HCT DET 39.2 % 04/23/2013 CBC 3528990 MCV 93.6 fL 04/23/2013 CBC 6047259 MCH 31.5 pg 04/23/2013 CBC 0724505 MCHC 33.7 g/dL 04/23/2013 CBC 7991627 PLT 202 10e9/L 04/23/2013 CBC 6643300 MPV 11.4 fL 04/23/2013 CBC 0395150 YANIRA % 70.5 % 04/23/2013 CBC 4408165 LY % 19.6 % 04/23/2013 CBC 7891392 MON % 8.2 % 04/23/2013 CBC 0800180 EOS % 1.6 % 04/23/2013 CBC 9946639 BASO % 0.1 % 04/23/2013 CBC 1380262 RDW 13.7 % 04/23/2013 CBC 5227189 ABS YANIRA 4.72 10e9/L 04/23/2013 CBC 6671911 ABS LYMPH 1.31 10e9/L 04/23/2013 CBC 0351293 ABS MONO 0.55 10e9/L 04/23/2013 CBC 4591844 ABS EOS 0.11 10e9/L 04/23/2013 CBC 3725588 ABS BASO 0.01 10e9/L 04/23/2013 CBC 8246397 RDW-SD 45.7 fL 04/23/2013 PT/MC 2243530 PRO TIME 13.4 SEC 12/17/2012 PT/MC 0959999 INR MCMC 1.0 12/17/2012 PT/MC 6607613 PRO TIME 16.6 SEC 12/14/2012 PT/MC 8640309 INR MCMC 1.4 12/14/2012 PT/MC 6486007 PRO TIME 27.2 SEC 12/11/2012 PT/MC 0035587 INR MCMC 2.6 12/11/2012 DIGOXIN 2059676 DIGOXIN 2.1 NG/ML 03/08/2012 GFR CALC 3499146 GFR AA >60 ML/MIN 03/08/2012 GFR CALC 2834807 GFR NON-AA >60 ML/MIN 03/08/2012 CHEM 14 0146959 AST 16 U/L 03/08/2012 CHEM 14 7966583 ALT 14 IU/L 03/08/2012 CHEM 14 5239945 BUN 10 MG/DL 03/08/2012 CHEM 14 9536903 ALBUMIN 4.2 GM/DL 03/08/2012 CHEM 14 0761876 CHLORIDE 100 MMOL/L 03/08/2012 CHEM 14 6584969 BILI TOT 0.5 MG/DL 03/08/2012 CHEM 14 5995684 ALK PHOS 59 U/L 03/08/2012 CHEM 14 6278945 SODIUM 136 MMOL/L 03/08/2012 CHEM 14 8681673 CREATININE 0.65 MG/DL 03/08/2012 CHEM 14 9713477 CALCIUM 9.4 MG/DL 03/08/2012 CHEM 14 1343650 POTASSIUM 3.9 MMOL/L 03/08/2012 CHEM 14 3260079 PROT TOT 6.7 GM/DL 03/08/2012 CHEM 14 7342354 GLUCOSE 90 MG/DL 03/08/2012 CHEM 14 9662932 BICARB 30 MMOL/L 03/08/2012 CHEM 14 5469932 ANION GAP 6 MEQ/L 03/08/2012 CHEM 14 2087379 AST 16 U/L 11/23/2011 CHEM 14 7634836 ALT 14 IU/L 11/23/2011 CHEM 14 4506167 BUN 11 MG/DL 11/23/2011 CHEM 14 6856560 ALBUMIN 4.1 GM/DL 11/23/2011 CHEM 14 3375892 CHLORIDE 100 MMOL/L 11/23/2011 CHEM 14 9021109 BILI TOT 0.5 MG/DL 11/23/2011 CHEM 14 5469471 ALK PHOS 50 U/L 11/23/2011 CHEM 14 9267710 SODIUM 135 MMOL/L 11/23/2011 CHEM 14 5439438 CREATININE 0.57 MG/DL 11/23/2011 CHEM 14 3731461 CALCIUM 9.1 MG/DL 11/23/2011 CHEM 14 4080341 POTASSIUM 4.5 MMOL/L 11/23/2011 CHEM 14 6610776 PROT TOT 6.5 GM/DL 11/23/2011 CHEM 14 7086640 GLUCOSE 89 MG/DL 11/23/2011 CHEM 14 7293831 BICARB 28 MMOL/L 11/23/2011 CHEM 14 0582032 ANION GAP 7 MEQ/L 11/23/2011 GFR CALC 3006988 GFR AA >60 ML/MIN 11/23/2011 GFR CALC 0001412 GFR NON-AA >60 ML/MIN 11/23/2011 CBC 9956919 WBC 5.1 10e9/L 11/23/2011 CBC 3941474 RBC 4.06 10e12/L 11/23/2011 CBC 5300792 HGB 12.5 g/dL 11/23/2011 CBC 5394179 HCT DET 37.3 % 11/23/2011 CBC 0613944 MCV 91.9 fL 11/23/2011 CBC 4853171 MCH 30.8 pg 11/23/2011 CBC 3802500 MCHC 33.5 g/dL 11/23/2011 CBC 0662647 PLT 222 10e9/L 11/23/2011 CBC 0453080 MPV 10.8 fL 11/23/2011 CBC 2909738 YANIRA % 64.2 % 11/23/2011 CBC 3140963 LY % 22.3 % 11/23/2011 CBC 7382219 MON % 11.3 % 11/23/2011 CBC 0631235 EOS % 1.8 % 11/23/2011 CBC 9258767 BASO % 0.4 % 11/23/2011 CBC 5849361 RDW 13.6 % 11/23/2011 CBC 6929353 ABS YANIRA 3.27 10e9/L 11/23/2011 CBC 5459668 ABS LYMPH 1.14 10e9/L 11/23/2011 CBC 7437510 ABS MONO 0.58 10e9/L 11/23/2011 CBC 2365987 ABS EOS 0.09 10e9/L 11/23/2011 CBC 5728920 ABS BASO 0.02 10e9/L 11/23/2011 CBC 4149345 RDW-SD 44.5 fL 11/23/2011 UA 95172 Specific Bells 1.005 03/04/2011 UA 15977 PH 6 03/04/2011 UA 66044 GLUCOSE N 03/04/2011 UA 21045 Protein N 03/04/2011 UA 23819 Blood ++ 03/04/2011 UA 60268 Bilirubin N 03/04/2011 UA 51512 Ketones N 03/04/2011 UA 79910 Urobilinogen N 03/04/2011 UA 13162 Nitrite N 03/04/2011 UA 13080 Leukocytes N 03/04/2011 URINALYSIS NONAUTO W/O SCOPE 24355 Specific Bells 1.010 DateTime(Free Text in Aprima) URINALYSIS NONAUTO W/O SCOPE 73343 PH 6.5 DateTime(Free Text in Aprima) URINALYSIS NONAUTO W/O SCOPE 02125 GLUCOSE neg DateTime(Free Text in Aprima) URINALYSIS NONAUTO W/O SCOPE 91252 Protein neg DateTime(Free Text in Aprima) URINALYSIS NONAUTO W/O SCOPE 79325 Blood 3+ DateTime(Free Text in Aprima) URINALYSIS NONAUTO W/O SCOPE 11146 Bilirubin neg DateTime(Free Text in Aprima) URINALYSIS NONAUTO W/O SCOPE 74171 Ketones neg DateTime(Free Text in Aprima) URINALYSIS NONAUTO W/O SCOPE 40948 Urobilinogen neg DateTime(Free Text in Aprima) URINALYSIS NONAUTO W/O SCOPE 07129 Nitrite neg DateTime(Free Text in Aprima) URINALYSIS NONAUTO W/O SCOPE 85226 Leukocytes neg DateTime(Free Text in Aprima) URINALYSIS NONAUTO W/O SCOPE 69921 Specific Bells 1.010 DateTime(Free Text in Aprima) URINALYSIS NONAUTO W/O SCOPE 87203 PH 5 DateTime(Free Text in Aprima) URINALYSIS NONAUTO W/O SCOPE 97064 GLUCOSE neg DateTime(Free Text in Aprima) URINALYSIS NONAUTO W/O SCOPE 17948 Protein neg DateTime(Free Text in Aprima) URINALYSIS NONAUTO W/O SCOPE 32704 Blood 3+ DateTime(Free Text in Aprima) URINALYSIS NONAUTO W/O SCOPE 04271 Bilirubin neg DateTime(Free Text in Aprima) URINALYSIS NONAUTO W/O SCOPE 23800 Ketones neg DateTime(Free Text in Aprima) URINALYSIS NONAUTO W/O SCOPE 35077 Urobilinogen neg DateTime(Free Text in Aprima) URINALYSIS NONAUTO W/O SCOPE 30922 Nitrite neg DateTime(Free Text in Aprima) URINALYSIS NONAUTO W/O SCOPE 86496 Leukocytes neg DateTime(Free Text in Aprima) URINALYSIS NONAUTO W/O SCOPE 90687 Specific Bells 1.005 DateTime(Free Text in Aprima) URINALYSIS NONAUTO W/O SCOPE 59743 PH 8.5 DateTime(Free Text in Aprima) URINALYSIS NONAUTO W/O SCOPE 16868 GLUCOSE neg DateTime(Free Text in Aprima) URINALYSIS NONAUTO W/O SCOPE 65557 Protein neg DateTime(Free Text in Aprima) URINALYSIS NONAUTO W/O SCOPE 35667 Blood 1+ DateTime(Free Text in Aprima) URINALYSIS NONAUTO W/O SCOPE 98913 Bilirubin neg DateTime(Free Text in Aprima) URINALYSIS NONAUTO W/O SCOPE 77731 Ketones neg DateTime(Free Text in Aprima) URINALYSIS NONAUTO W/O SCOPE 72942 Urobilinogen neg DateTime(Free Text in Aprima) URINALYSIS NONAUTO W/O SCOPE 13311 Nitrite neg DateTime(Free Text in Aprima) URINALYSIS NONAUTO W/O SCOPE 93752 Leukocytes neg DateTime(Free Text in Aprima) URINALYSIS NONAUTO W/O SCOPE 64119 Specific Bells 1.005 DateTime(Free Text in Aprima) URINALYSIS NONAUTO W/O SCOPE 87298 PH 7 DateTime(Free Text in Aprima) URINALYSIS NONAUTO W/O SCOPE 97663 GLUCOSE neg DateTime(Free Text in Aprima) URINALYSIS NONAUTO W/O SCOPE 89200 Protein neg DateTime(Free Text in Aprima) URINALYSIS NONAUTO W/O SCOPE 73113 Blood large DateTime(Free Text in Aprima) URINALYSIS NONAUTO W/O SCOPE 76048 Bilirubin neg DateTime(Free Text in Aprima) URINALYSIS NONAUTO W/O SCOPE 57095 Ketones neg DateTime(Free Text in Aprima) URINALYSIS NONAUTO W/O SCOPE 15493 Urobilinogen 0.2 DateTime(Free Text in Aprima) URINALYSIS NONAUTO W/O SCOPE 05935 Nitrite neg DateTime(Free Text in Aprima) URINALYSIS NONAUTO W/O SCOPE 39123 Leukocytes neg DateTime(Free Text in Aprima) URINALYSIS NONAUTO W/O SCOPE 34179 Specific Bells 1.005 DateTime(Free Text in Aprima) URINALYSIS NONAUTO W/O SCOPE 48909 PH 7.5 DateTime(Free Text in Aprima) URINALYSIS NONAUTO W/O SCOPE 77762 GLUCOSE DateTime(Free Text in Aprima) URINALYSIS NONAUTO W/O SCOPE 84527 Protein trace DateTime(Free Text in Aprima) URINALYSIS NONAUTO W/O SCOPE 04626 Blood 4+ DateTime(Free Text in Aprima) URINALYSIS NONAUTO W/O SCOPE 54881 Bilirubin DateTime(Free Text in Aprima) URINALYSIS NONAUTO W/O SCOPE 14791 Ketones DateTime(Free Text in Apr) URINALYSIS NONAUTO W/O SCOPE 36446 Urobilinogen DateTime(Free Text in Aprima) URINALYSIS NONAUTO W/O SCOPE 21271 Nitrite DateTime(Free Text in Octima) URINALYSIS NONAUTO W/O SCOPE 96528 Leukocytes trace DateTime(Free Text in ) Review [...] FLU VACC PRSV FREE INC ANTIG CPT-4: 08981 03/27/2017 PPPS, SUBSEQ VISIT CPT- 4: G0439 01/23/2017 URINALYSIS NONAUTO W/O SCOPE CPT-4: 60926 05/17/2016 ADMIN INFLUENZA VIRUS VAC CPT-4: G0008 03/24/2016 FLU VACC PRSV FREE INC ANTIG CPT-4: 22398 03/24/2016 ADMIN PNEUMOCOCCAL VACCINE SNOMED CT: 33873013 CPT-4: G0009 05/13/2015 PNEUMOCOCCAL VACC [address]: 95485220 CPT-4: 20954 05/13/2015 Pneumococcal Polysaccharide Vaccine, 23-Valent, Ad Assigned to/Mela Bledsoe CPT-4: 13958Ptegxlj 07/11/2014 ADMIN PNEUMOCOCCAL VACCINE SNOMED CT: 02284099 CPT-4: G0009 07/11/2014 URINALYSIS NONAUTO W/O SCOPE CPT-4: 24445 05/14/2014 URINALYSIS NONAUTO W/O SCOPE CPT-4: 33697 05/06/2014 URINALYSIS NONAUTO W/O SCOPE CPT-4: 76673 04/29/2014 ADMIN INFLUENZA VIRUS VAC CPT-4: G0008 03/20/2014 FLU VAC NO PRSV 4 SCOTT 3 YRS+ Assigned to/Mela Bledsoe CPT-4: 55272Dasxvla 03/20/2014 URINALYSIS NONAUTO W/O SCOPE CPT-4: 18191 07/29/2013 URINALYSIS NONAUTO W/O SCOPE CPT-4: 28646 07/01/2013 URINALYSIS NONAUTO W/O SCOPE CPT-4: 53359 06/20/2013 ROUTINE VENIPUNCTURE CPT- 4: 76134 05/15/2013 ROUTINE VENIPUNCTURE CPT- 4: 51605 04/23/2013 ADMIN INFLUENZA VIRUS VAC CPT-4: G0008 04/23/2013 FLULAVAL VACC, 3 YRS & >, IM CPT-4: Q2036 04/23/2013 ROUTINE VENIPUNCTURE CPT- 4: 92346 12/17/2012 ROUTINE VENIPUNCTURE CPT- 4: 82802 12/14/2012 ROUTINE VENIPUNCTURE CPT- 4: 73732 12/11/2012 PRESCRIP TRANSMIT VIA ERX SY CPT-4: G8553 12/11/2012 PRESCRIP TRANSMIT VIA ERX SY CPT-4: G8553 10/30/2012 URINALYSIS NONAUTO W/O SCOPE CPT-4: 12031 09/13/2012 ADMIN INFLUENZA VIRUS VAC CPT-4: G0008 04/18/2012 FLULAVAL VACC, 3 YRS & >, IM CPT-4: Q2036 04/18/2012 URINALYSIS NONAUTO W/O SCOPE CPT-4: 27437 03/13/2012 ROUTINE VENIPUNCTURE CPT- 4: 63493 03/08/2012 URINALYSIS NONAUTO W/O SCOPE CPT-4: 03630 02/13/2012 PRESCRIP TRANSMIT VIA ERX SY CPT-4: G8553 02/13/2012 ROCEPHIN, PER 250 MG CPT- 4: J0696 11/23/2011 ROUTINE VENIPUNCTURE CPT- 4: 74111 11/23/2011 URINALYSIS NONAUTO W/O SCOPE CPT-4: 97361 11/23/2011 PRESCRIP TRANSMIT VIA ERX SY CPT-4: G8553 11/23/2011 REMOVE IMPACTED EAR WAX UNI CPT-4: 22417 10/17/2011 PRESCRIP TRANSMIT VIA ERX SY CPT-4: G8553 10/03/2011 PRESCRIP TRANSMIT VIA ERX SY CPT-4: G8553 08/08/2011 URINALYSIS NONAUTO W/O SCOPE CPT-4: 26563 03/15/2011 URINALYSIS NONAUTO W/O SCOPE CPT-4: 93470 03/04/2011 THER/PROPH/DIAG INJ SC/IM CPT-4: 69268 03/04/2011 ROCEPHIN, PER 250 MG CPT- 4: J0696 03/04/2011 Vital Signs Date Vital 09/12/2018 Blood Pressure 1: 156/72 Code: 8480-6 BMI: 19.9 Code: 43316-1 Heart Rate 1: 68 bpm Height: 5' Temperature: 36.6 (C) / 97.8 (F) Weight: 102 lbs 08/14/2018 Blood Pressure 1: 136/68 Code: 8480-6 BMI: 21.1 Code: 97098-9 Heart Rate 1: 92 bpm Height: 5' Weight: 108 lbs 07/26/2018 Blood Pressure 1: 128/76 Code: 8480-6 BMI: 21.1 Code: 93095-2 Heart Rate 1: 88 bpm Height: 5' Weight: 108 lbs 06/04/2018 Blood Pressure 1: 124/72 Code: 8480-6 BMI: 21.3 Code: 68165-3 Heart Rate 1: 98 bpm Height: 5' Weight: 109 lbs 01/31/2018 Blood Pressure 1: 116/68 Code: 8480-6 BMI: 21.1 Code: 45765-1 Heart Rate 1: 89 bpm Height: 5' SpO2: 98% Weight: 108 lbs 01/17/2018 Blood Pressure 1: 134/74 Code: 8480-6 BMI: 21.3 Code: 60754-5 Heart Rate 1: 74 bpm Height: 5' SpO2: 96% Waist Measure (cm): 71 cm Weight: 109 lbs 12/14/2017 Blood Pressure 1: 150/78 Code: 8480-6 BMI: 21.5 Code: 97686-3 Heart Rate 1: 77 bpm Height: 5' SpO2: 98% Temperature: 36.7 (C) / 98.1 (F) Weight: 110 lbs 12/07/2017 Blood Pressure 1: 134/70 Code: 8480-6 Heart Rate 1: 76 bpm Height: SpO2: 98% Temperature: 36.8 (C) / 98.2 (F) Weight: 11/14/2017 Blood Pressure 1: 152/84 Code: 8480-6 BMI: 21.9 Code: 50665-6 Heart Rate 1: 95 bpm Height: 5' SpO2: 93% Weight: 112 lbs 03/27/2017 Blood Pressure 1: 122/70 Code: 8480-6 BMI: 21.3 Code: 58844-8 Heart Rate 1: 75 bpm Height: 5' Weight: 109 lbs 01/23/2017 BMI: 21.5 Code: 45279-6 Height: 5' Weight: 110 lbs 01/19/2017 Blood Pressure 1: 112/60 Code: 8480-6 BMI: 21.5 Code: 03349-8 Heart Rate 1: 54 bpm Height: 5' SpO2: 97% Weight: 110 lbs 11/29/2016 Blood Pressure 1: 126/68 Code: 8480-6 Height: 5' Weight: 11/23/2016 Blood Pressure 1: 130/72 Code: 8480-6 BMI: 21.9 Code: 84302-5 Heart Rate 1: 48 bpm Height: 5' SpO2: 97% Temperature: 36.7 (C) / 98.0 (F) Weight: 112 lbs 11/21/2016 Blood Pressure 1: 134/76 Code: 8480-6 BMI: 21.9 Code: 96159-1 Heart Rate 1: 41 bpm Height: 5' SpO2: 94% Temperature: 36.9 (C) / 98.4 (F) Weight: 112 lbs 11/08/2016 Blood Pressure 1: 126/74 Code: 8480-6 Heart Rate 1: 82 bpm Height: 5' SpO2: 94% Weight: 11/02/2016 Blood Pressure 1: 112/66 Code: 8480-6 Heart Rate 1: 72 bpm Height: 5' SpO2: 95% Weight: 10/27/2016 Blood Pressure 1: 130/64 Code: 8480-6 BMI: 21.7 Code: 99081-2 Heart Rate 1: 81 bpm Height: 5' SpO2: 96% Weight: 111 lbs 08/31/2016 Blood Pressure 1: 132/72 Code: 8480-6 BMI: 22.5 Code: 81868-2 Heart Rate 1: 66 bpm Height: 5' Weight: 115 lbs 07/27/2016 Blood Pressure 1: 166/74 Code: 8480-6 BMI: 23.2 Code: 87610-3 Heart Rate 1: 48 bpm Height: 5' SpO2: 90% Temperature: 36.8 (C) / 98.2 (F) Weight: 119 lbs 06/23/2016 Blood Pressure 1: 128/70 Code: 8480-6 BMI: 22.3 Code: 24507-6 Heart Rate 1: 75 bpm Height: 5' SpO2: 97% Weight: 114 lbs 06/09/2016 BMI: 22.7 Code: 97383-1 Heart Rate 1: 73 bpm Height: 5' SpO2: 97% Weight: 116 lbs 05/25/2016 Blood Pressure 1: 138/62 Code: 8480-6 BMI: 22.8 Code: 03461-1 Heart Rate 1: 76 bpm Height: 5' Weight: 117 lbs 05/17/2016 Blood Pressure 1: 116/70 Code: 8480-6 BMI: 22.8 Code: 15099-6 Heart Rate 1: 74 bpm Height: 5' SpO2: 94% Weight: 117 lbs 03/24/2016 Blood Pressure 1: 154/78 Code: 8480-6 BMI: 22.5 Code: 78670-1 Heart Rate 1: 78 bpm Height: 5' SpO2: 97% Weight: 115 lbs 02/02/2016 Blood Pressure 1: 132/70 Code: 8480-6 BMI: 22.3 Code: 33009-3 Heart Rate 1: 74 bpm Height: 5' SpO2: 94% Weight: 114 lbs 2016 Blood Pressure 1: 120/62 Code: 8480-6 BMI: 22.0 Code: 27336-9 Heart Rate 1: 68 bpm Height: 5' Weight: 112 lbs 8 oz 12/21/2015 Blood Pressure 1: 122/82 Code: 8480-6 BMI: 21.9 Code: 18484-1 Heart Rate 1: 83 bpm Height: 5' SpO2: 93% Temperature: 37.1 (C) / 98.7 (F) Weight: 112 lbs 11/03/2015 Blood Pressure 1: 122/72 Code: 8480-6 BMI: 22.4 Code: 01342-7 Heart Rate 1: 62 bpm Height: 5' Weight: 114 lbs 8 oz 10/19/2015 Blood Pressure 1: 138/62 Code: 8480-6 BMI: 21.1 Code: 28228-4 Heart Rate 1: 79 bpm Height: 5' Weight: 108 lbs 10/13/2015 Blood Pressure 1: 120/62 Code: 8480-6 BMI: 21.0 Code: 72492-1 Heart Rate 1: 76 bpm Height: 5' SpO2: 98% Weight: 108 lbs 09/29/2015 Blood Pressure 1: 130/70 Code: 8480-6 BMI: 20.2 Code: 32284-4 Heart Rate 1: 72 bpm Height: 5' Weight: 104 lbs 09/15/2015 Blood Pressure 1: 128/78 Code: 8480-6 BMI: 19.9 Code: 18012-0 Heart Rate 1: 72 bpm Height: 5' Weight: 102 lbs 8 oz 09/01/2015 Blood Pressure 1: 128/68 Code: 8480-6 BMI: 19.8 Code: 61910-8 Height: 5' Weight: 102 lbs 05/26/2015 Blood Pressure 1: 140/68 Code: 8480-6 BMI: 19.0 Code: 90832-2 Heart Rate 1: 70 bpm Height: 5' Weight: 98 lbs 05/21/2015 Blood Pressure 1: 140/78 Code: 8480-6 BMI: 19.2 Code: 06167-2 Heart Rate 1: 85 bpm Height: 5' SpO2: 95% Weight: 99 lbs 05/07/2015 Blood Pressure 1: 140/82 Code: 8480-6 BMI: 19.0 Code: 65957-7 Heart Rate 1: 76 bpm Height: 5' Weight: 98 lbs 03/23/2015 Blood Pressure 1: 142/60 Code: 8480-6 BMI: 18.6 Code: 39551-0 Heart Rate 1: 52 bpm Height: 5' Weight: 96 lbs 03/09/2015 Blood Pressure 1: 138/74 Code: 8480-6 BMI: 18.8 Code: 42231-3 Heart Rate 1: 60 bpm Height: 5' Weight: 97 lbs 10/30/2014 Blood Pressure 1: 112/82 Code: 8480-6 BMI: 19.0 Code: 12730-7 Heart Rate 1: 64 bpm Height: 5' Weight: 98 lbs 07/11/2014 Blood Pressure 1: 146/70 Code: 8480-6 BMI: 18.8 Code: 54584-6 Heart Rate 1: 68 bpm Height: 5' Weight: 97 lbs 05/20/2014 Blood Pressure 1: 142/76 Code: 8480-6 BMI: 18.6 Code: 48546-1 Heart Rate 1: 78 bpm Height: 5' Weight: 96 lbs 04/29/2014 Blood Pressure 1: 138/62 Code: 8480-6 BMI: 18.3 Code: 35848-3 Heart Rate 1: 80 bpm Height: 5' Weight: 94 lbs 8 oz 03/20/2014 Blood Pressure 1: 142/68 Code: 8480-6 BMI: 18.6 Code: 69728-4 Heart Rate 1: 96 bpm Height: 5' Weight: 96 lbs 03/05/2014 Blood Pressure 1: 122/72 Code: 8480-6 BMI: 18.8 Code: 29502-3 Heart Rate 1: 82 bpm Height: 5' SpO2: 97% Weight: 97 lbs 01/29/2014 Blood Pressure 1: 124/78 Code: 8480-6 BMI: 18.8 Code: 24976-0 Heart Rate 1: 60 bpm Height: 5' Weight: 97 lbs 01/14/2014 Blood Pressure 1: 120/58 Code: 8480-6 BMI: 19.2 Code: 11528-1 Heart Rate 1: 56 bpm Height: 5' Temperature: 36.9 (C) / 98.4 (F) Weight: 99 lbs 12/25/2013 Blood Pressure 1: 118/78 Code: 8480-6 BMI: 19.2 Code: 84930-7 Heart Rate 1: 68 bpm Height: 5' Weight: 99 lbs 11/27/2013 Blood Pressure 1: 102/68 Code: 8480-6 BMI: 19.4 Code: 63265-9 Heart Rate 1: 56 bpm Height: 5' Weight: 100 lbs 09/12/2013 Blood Pressure 1: 142/62 Code: 8480-6 BMI: 19.7 Code: 53795-6 Heart Rate 1: 72 bpm Height: 5'1" Weight: 104 lbs 08/15/2013 Blood Pressure 1: 152/92 Code: 8480-6 Heart Rate 1: 96 bpm Weight: 102 lbs 08/01/2013 Blood Pressure 1: 122/68 Code: 8480-6 BMI: 19.1 Code: 66088-7 Heart Rate 1: 68 bpm Height: 5'1" Weight: 101 lbs 07/01/2013 Blood Pressure 1: 130/72 Code: 8480-6 BMI: 19.5 Code: 60640-5 Heart Rate 1: 80 bpm Height: 5'1" Temperature: 36.1 (C) / 97.0 (F) Weight: 103 lbs 05/29/2013 Blood Pressure 1: 126/72 Code: 8480-6 BMI: 19.3 Code: 83179-8 Heart Rate 1: 80 bpm Height: 5'1" Weight: 102 lbs 05/15/2013 Blood Pressure 1: 156/74 Code: 8480-6 BMI: 19.3 Code: 47500-3 Heart Rate 1: 88 bpm Height: 5'1" Weight: 102 lbs 04/23/2013 Blood Pressure 1: 140/82 Code: 8480-6 BMI: 19.3 Code: 70063-2 Heart Rate 1: 72 bpm Height: 5'1" Weight: 102 lbs 03/21/2013 Blood Pressure 1: 142/74 Code: 8480-6 Heart Rate 1: 92 bpm Weight: 103 lbs 01/16/2013 Blood Pressure 1: 120/56 Code: 8480-6 BMI: 20.0 Code: 35312-6 Heart Rate 1: 72 bpm Height: 5'1" Weight: 106 lbs 12/19/2012 Blood Pressure 1: 118/66 Code: 8480-6 Heart Rate 1: 84 bpm Weight: 12/10/2012 Blood Pressure 1: 132/62 Code: 8480-6 Heart Rate 1: 64 bpm Weight: 103 lbs 10/30/2012 Blood Pressure 1: 122/66 Code: 8480-6 BMI: 19.9 Code: 94085-7 Heart Rate 1: 61 bpm Height: 5'1" [...] 1: 118/72 Code: 8480-6 BMI: 21.0 Code: 69541-5 Heart Rate 1: 66 bpm Height: 5'1" Respiratory Rate: 16 bpm Weight: 111 lbs 2012 Blood Pressure 1: 122/62 Code: 8480-6 Heart Rate 1: 68 bpm Weight: 110 lbs 12/01/2011 Blood Pressure 1: 150/60 Code: 8480-6 BMI: 20.8 Code: 27537-8 Heart Rate 1: 60 bpm Height: 5'1" Respiratory Rate: 16 bpm Weight: 110 lbs 11/23/2011 Blood Pressure 1: 170/68 Code: 8480-6 BMI: 21.1 Code: 68860-0 Heart Rate 1: 64 bpm Height: 5'1" Temperature: 36.3 (C) / 97.3 (F) Weight: 111 lbs 8 oz 10/17/2011 Blood Pressure 1: 148/62 Code: 8480-6 Heart Rate 1: 74 bpm 10/03/2011 Blood Pressure 1: 102/48 Code: 8480-6 BMI: 21.4 Code: 44256-4 Heart Rate 1: 76 bpm Height: 5'1" Respiratory Rate: 16 bpm Weight: 113 lbs 08/08/2011 Blood Pressure 1: 128/60 Code: 8480-6 Heart Rate 1: 80 bpm Respiratory Rate: 16 bpm Weight: 113 lbs 05/09/2011 Blood Pressure 1: 130/62 Code: 8480-6 BMI: 20.7 Code: 43460-7 Heart Rate 1: 64 bpm Height: 5'1" Respiratory Rate: 16 bpm Weight: 109 lbs 8 oz 03/29/2011 Blood Pressure 1: 120/62 Code: 8480-6 BMI: 20.2 Code: 62392-0 Heart Rate 1: 66 bpm Height: 5'1" Respiratory Rate: 12 bpm Weight: 107 lbs 03/15/2011 Blood Pressure 1: 120/64 Code: 8480-6 BMI: 19.8 Code: 02173-1 Heart Rate 1: 76 bpm Height: 5'1" [...] contacts 03/20/2014 sat next to neighbor in [place] who had tonsillitis sore throat Pertinent Findings [...] syndrome without gangrene[ICD10: I73.00] Katharine Bahena MD, [facility] CPT-4: 89270 09/12/2018 ([id number]) 82354 EST. PATIENT, LEVEL IV Diagnosis: Raynaud's syndrome without gangrene[ICD10: I73.00] Diagnosis: Pain in right toe(s)[ICD10: M79.674] Diagnosis: Chronic atrial fibrillation[ICD10: I48.2] Karma Bahena MD, [facility] CPT-4: 49398 08/14/2018 ([id number]) 99550 EST. PATIENT, LEVEL IV Diagnosis: Chronic atrial fibrillation[ICD10: I48.2] Diagnosis: Sebaceous cyst[ICD10: L72.3] Diagnosis: Raynaud's syndrome without gangrene[ICD10: I73.00] Karma Bahena MD, [facility] CPT-4: 40969 07/26/2018 ([id number]) 27377 EST. PATIENT, LEVEL IV Diagnosis: Essential (primary) hypertension[ICD10: I10] Diagnosis: Atrophy of thyroid (acquired)[ICD10: E03.4] Diagnosis: Gastro-esophageal reflux disease without esophagitis[ICD10: K21.9] Karma Bahena MD [facility] CPT-4: 33695 06/04/2018 ([id number]) 17556 EST. PATIENT, LEVEL IV Diagnosis: Essential (primary) hypertension[ICD10: I10] Diagnosis: Atrophy of thyroid (acquired)[ICD10: E03.4] Diagnosis: Other medical terminologist (current) drug therapy[ICD10: Z79.899] Karma Bahena MD, [facility] CPT-4: 04161 01/31/2018 ([id number]) 08290 EST. PATIENT, LEVEL IV Diagnosis: Essential (primary) hypertension[ICD10: I10] Diagnosis: Chronic atrial fibrillation[ICD10: I48.2] Diagnosis: Allergic rhinitis due to pollen[ICD10: J30.1] Diagnosis: Cough[ICD10: R05] Karma Bahena MD, [facility] CPT-4: 43147 12/14/2017 44458 EST. PATIENT, LEVEL IV Diagnosis: Other allergic rhinitis[ICD10: J30.89] Katharine Bahena MD, [facility] CPT- 4: 45520 12/07/2017 ([id number]) 62018 EST. PATIENT, LEVEL IV Diagnosis: Essential (primary) hypertension[ICD10: I10] Diagnosis: Chronic atrial fibrillation[ICD10: I48.2] Diagnosis: Atrophy of thyroid (acquired)[ICD10: E03.4] Karma Bahena MD, [facility] CPT-4: 58870 11/14/2017 ([id number]) 40078 EST. PATIENT, LEVEL IV Diagnosis: Essential (primary) hypertension[ICD10: I10] Diagnosis: Localized edema[ICD10: R60.0] Diagnosis: Encounter for immunization[ICD10: Z23] Diagnosis: Age-related osteoporosis without current pathological fracture[ICD10: M81.0] Karma Bahena MD, [facility] CPT-4: 39511 03/27/2017 ([id number]) 18231 EST. PATIENT, LEVEL IV Diagnosis: Essential (primary) hypertension[ICD10: I10] Diagnosis: Chronic atrial fibrillation[ICD10: I48.2] Diagnosis: Dysphonia[ICD10: R49.0] Karma Bahena MD, [facility] CPT-4: 83544 01/19/2017 ([id number]) Miscellaneous no charge Diagnosis: Cough[ICD10: R05] Diagnosis: Acute upper respiratory infection, unspecified[ICD10: J06.9] Laura Bahena MD, [facility] CPT-4: 33771 11/29/2016 42972 EST. PATIENT, LEVEL III Diagnosis: Cough[ICD10: R05] Diagnosis: Acute laryngopharyngitis[ICD10: J06.0] Katharine Bahena MD, [facility] CPT- 4: 26090 11/23/2016 ([id number]) 27632 EST. PATIENT, LEVEL III Diagnosis: Acute laryngopharyngitis[ICD10: J06.0] Laura Bahena MD, [facility] CPT-4: 87389 11/21/2016 ([id number]) Miscellaneous no charge Diagnosis: Laceration without foreign body of right forearm, subsequent encounter[ICD10: S51.811D] Karma Bahena MD [facility] CPT-4: 71636 11/17/2016 ([id number]) Miscellaneous no charge Diagnosis: Laceration without foreign body of right forearm, subsequent encounter[ICD10: S51.811D] Karma Bahena MD [facility] CPT-4: 26393 11/14/2016 ([id number]) Miscellaneous no charge Diagnosis: Laceration without foreign body of right forearm, subsequent encounter[ICD10: S51.811D] Karma Bahena MD [facility] CPT-4: 19159 11/11/2016 ([id number]) Miscellaneous no charge Diagnosis: Laceration without foreign body of right forearm, subsequent encounter[ICD10: S51.811D] Karma Bahena MD [facility] CPT-4: 51261 11/10/2016 ([id number]) 09483 EST. PATIENT, LEVEL II Diagnosis: Laceration without foreign body of right forearm, subsequent encounter[ICD10: S51.811D] Karma Bahena MD [facility] CPT-4: 90925 11/08/2016 ([id number]) 23738 EST. PATIENT, LEVEL IV Diagnosis: Atrophy of thyroid (acquired)[ICD10: E03.4] Diagnosis: Chronic atrial fibrillation[ICD10: I48.2] Diagnosis: Laceration without foreign body of right forearm, subsequent encounter[ICD10: S51.811D] Karma Bahena MD, [facility] CPT-4: 15422 11/02/2016 ([id number]) 14183 EST. PATIENT, LEVEL III Diagnosis: Laceration without foreign body of right forearm, initial encounter[ICD10: S51.811A] Laura Bahena MD, [facility] CPT-4: 84779 10/27/2016 ([id number]) 13191 EST. PATIENT, LEVEL IV Diagnosis: Essential (primary) hypertension[ICD10: I10] Diagnosis: Chronic atrial fibrillation[ICD10: I48.2] Karma Bahena MD, [facility] CPT-4: 76675 08/31/2016 ([id number]) 09329 EST. PATIENT, LEVEL IV Diagnosis: Localized edema[ICD10: R60.0] Diagnosis: Essential (primary) hypertension[ICD10: I10] Diagnosis: Abdominal distension (gaseous)[ICD10: R14.0] Karma Bahena MD [facility] CPT-4: 95228 07/27/2016 ([id number]) 47858 EST. PATIENT, LEVEL IV Diagnosis: Essential (primary) hypertension[ICD10: I10] Diagnosis: Chronic atrial fibrillation[ICD10: I48.2] Diagnosis: Localized edema[ICD10: R60.0] Karma Bahena MD [facility] CPT-4: 56978 06/23/2016 ([id number]) 95512 EST. PATIENT, LEVEL III Diagnosis: Localized edema[ICD10: R60.0] Karma Bahena MD [facility] CPT-4: 70125 06/09/2016 ([id number]) 18454 EST. PATIENT, LEVEL III Diagnosis: Irritable bowel syndrome without diarrhea[ICD10: K58.9] Diagnosis: Pruritus ani[ICD10: L29.0] Karma Bahena MD [facility] CPT-4: 28846 05/25/2016 ([id number]) 84583 EST. PATIENT, LEVEL III Diagnosis: Abdominal distension (gaseous)[ICD10: R14.0] Diagnosis: Encounter for screening mammogram for malignant neoplasm of breast[ICD10: Z12.31] Karma Bahena MD [facility] CPT-4: 51087 05/17/2016 ([id number]) 70922 EST. PATIENT, LEVEL IV Diagnosis: Essential (primary) hypertension[ICD10: I10] Diagnosis: First degree hemorrhoids[ICD10: K64.0] Diagnosis: Encounter for immunization[ICD10: Z23] Karma Bahena MD, [facility] CPT-4: 66571 03/24/2016 ([id number]) 82953 EST. PATIENT, LEVEL III Diagnosis: Epidermal cyst[ICD10: L72.0] Diagnosis: Essential (primary) hypertension[ICD10: I10] Diagnosis: Chronic atrial fibrillation[ICD10: I48.2] Diagnosis: Other [place] [facility] (current) drug therapy[ICD10: Z79.899] Karma Bahena MD, [facility] CPT-4: 49984 02/02/2016 ([id number]) 75080 EST. PATIENT, LEVEL III Diagnosis: Acute anal fissure[ICD10: K60.0] Karma Bahena MD, [facility] CPT-4: 69051 2016 ([id number]) 52551 EST. PATIENT, LEVEL III Diagnosis: Allergic rhinitis due to pollen[ICD10: J30.1] Diagnosis: Acute upper respiratory infection, unspecified[ICD10: J06.9] Laura Bahena MD, [facility] CPT-4: 73854 12/21/2015 ([id number]) 18150 EST. PATIENT, LEVEL III Diagnosis: Essential (primary) hypertension[ICD10: I10] Diagnosis: Chronic atrial fibrillation[ICD10: I48.2] Karma Bahena MD, [facility] CPT-4: 31799 11/03/2015 ([id number]) Miscellaneous no charge Diagnosis: Impacted cerumen, right ear[ICD10: H61.21] Katharine Bahena MD, [facility] CPT-4: 33493 10/19/2015 87287 EST. PATIENT, LEVEL IV Diagnosis: Impacted cerumen, right ear[ICD10: H61.21] Diagnosis: Other allergic rhinitis[ICD10: J30.89] Katharine Bahena MD, [facility] CPT- 4: 21442 10/13/2015 ([id number]) 78834 EST. PATIENT, LEVEL IV Diagnosis: Essential (primary) hypertension[ICD10: I10] Diagnosis: Chronic atrial fibrillation[ICD10: I48.2] Diagnosis: Urge incontinence[ICD10: N39.41] Diagnosis: Age-related osteoporosis without current pathological fracture[ICD10: M81.0] Karma Bahena MD, [facility] CPT-4: 77624 09/29/2015 ([id number]) 71737 EST. PATIENT, LEVEL IV Diagnosis: Essential (primary) hypertension[ICD10: I10] Diagnosis: Chronic atrial fibrillation[ICD10: I48.2] Diagnosis: Irritable bowel syndrome without diarrhea[ICD10: K58.9] Diagnosis: Unspecified hemorrhoids[ICD10: K64.9] Karma Bahena MD, [facility] CPT-4: 68882 09/15/2015 ([id number]) 52787 EST. 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 PATIENT, LEVEL III Diagnosis: Hematuria, unspecified[ICD10: R31.9] Diagnosis: Other urethritis[ICD10: N34.2] Diagnosis: Other specified noninflammatory disorders of vagina[ICD10: N89.8] Karma Bahena MD, [facility] CPT-4: 76504 05/26/2015 40969 EST. PATIENT, LEVEL IV Diagnosis: Gout, unspecified[ICD10: M10.9] Karma Bahena MD, [facility] CPT-4: 75742 05/21/2015 ([id number]) 31702 EST. PATIENT, LEVEL IV Diagnosis: Chronic atrial fibrillation[ICD10: I48.2] Diagnosis: Irritable bowel syndrome without diarrhea[ICD10: K58.9] Diagnosis: Cystocele, unspecified[ICD10: N81.10] Diagnosis: Urge incontinence[ICD10: N39.41] Diagnosis: Fecal smearing[ICD10: R15.1] Diagnosis: Hypothyroidism, unspecified[ICD10: E03.9] Karma aBhena MD, [facility] CPT-4: 33130 05/07/2015 ([id number]) 55980 EST. PATIENT, LEVEL III Diagnosis: Atrial fibrillation[ICD9: 427.31] Diagnosis: Bloating[ICD9: 787.3] Karma Bahena MD, [facility] CPT-4: 37629 03/23/2015 ([id number]) 32015 EST. PATIENT, LEVEL IV Diagnosis: Abdominal pain[ICD9: 789.00] Diagnosis: Atrial fibrillation[ICD9: 427.31] Diagnosis: ENCNTR LONG-ANTICOAG USE[ICD9: V58.61] Karma Bahena MD [facility] CPT-4: 75751 03/09/2015 ([id number]) 98740 EST. PATIENT, LEVEL IV Diagnosis: HEMATURIA NOS[ICD9: 599.70] Diagnosis: Atrial fibrillation[ICD9: 427.31] Diagnosis: HYPOTHYROIDISM[ICD9: 244.9] Karma Bahena MD [facility] CPT-4: 38149 10/30/2014 ([id number]) 82733 EST. PATIENT, LEVEL IV Diagnosis: Atrial fibrillation[ICD9: 427.31] Diagnosis: ALLERGIC RHINITIS[ICD9: 477.9] Diagnosis: Need for pneumococcal vaccine[ICD9: V03.82] Diagnosis: Osteoarthritis[ICD9: 715.90] Diagnosis: Osteoporosis[ICD9: 733.00] Karma Bahena MD [facility] CPT-4: 61732 07/11/2014 ([id number]) 28466 EST. PATIENT, LEVEL III Diagnosis: Urge incontinence[ICD9: 788.31] Diagnosis: Dysuria[ICD9: 788.1] Karma Bahena MD [facility] CPT-4: 26355 05/20/2014 ([id number]) 62072 EST. PATIENT, LEVEL IV Diagnosis: Atrial fibrillation[ICD9: 427.31] Diagnosis: Hematuria[ICD9: 599.70] Diagnosis: Dysuria[ICD9: 788.1] Diagnosis: ESSENTIAL HYPERTENSION[ICD9: 401.9] Karma Bahena MD [facility] CPT- 4: 46591 04/29/2014 ([id number]) 15479 EST. PATIENT, LEVEL IV Diagnosis: ESSENTIAL HYPERTENSION[ICD9: 401.9] Diagnosis: ALLERGIC RHINITIS[ICD9: 477.9] Karma Bahena MD [facility] CPT-4: 30729 03/20/2014 ([id number]) 15668 EST. PATIENT, LEVEL IV Diagnosis: ESSENTIAL HYPERTENSION[ICD9: 401.9] Diagnosis: ATRIAL FIBRILLATION[ICD9: 427.31] Diagnosis: Irritable bowel[ICD9: 564.1] Karma Bahena MD [facility] CPT-4: 76069 03/05/2014 ([id number]) 16509 EST. PATIENT, LEVEL IV Diagnosis: Esophageal reflux[ICD9: 530.81] Diagnosis: DIARRHEA[ICD9: 787.91] Diagnosis: ABDOM PAIN NOS SITE[ICD9: 789.00] Karma Bahena MD [facility] CPT- 4: 68958 01/29/2014 ([id number]) 06016 EST. PATIENT, LEVEL III Diagnosis: Irritable bowel[ICD9: 564.1] Diagnosis: DIARRHEA[ICD9: 787.91] Laura Bahena MD [facility] CPT-4: 75698 01/14/2014 ([id number]) 48297 EST. PATIENT, LEVEL IV Diagnosis: ESSENTIAL HYPERTENSION[ICD9: 401.9] Diagnosis: ATRIAL FIBRILLATION[ICD9: 427.31] Diagnosis: URGE INCONTINENCE[ICD9: 788.31] Diagnosis: MALAISE AND FATIGUE[ICD9: 780.79] Diagnosis: Dyspnea[ICD9: 786.09] Karma Bahena MD [facility] CPT-4: 93474 12/25/2013 ([id number]) 02616 EST. PATIENT, LEVEL IV Diagnosis: ESSENTIAL HYPERTENSION[SNOMED: 71562034] Diagnosis: ATRIAL FIBRILLATION[ICD9: 427.31] Diagnosis: Abdominal pain[ICD9: 789.00] Diagnosis: ESOPHAGEAL REFLUX[ICD9: 530.81] Karma Bahena MD [facility] CPT-4: 60673 11/27/2013 ([id number]) 48267 EST. PATIENT, LEVEL IV Diagnosis: ESSENTIAL HYPERTENSION[SNOMED: 49900959] Diagnosis: ATRIAL FIBRILLATION[ICD9: 427.31] Diagnosis: Chronic osteoarthritis[ICD9: 715.90] Karma Bahena MD [facility] CPT- 4: 09478 09/12/2013 ([id number]) 59838 EST. PATIENT, LEVEL III Diagnosis: ESSENTIAL HYPERTENSION[SNOMED: 22343665] Diagnosis: Bruising[ICD9: 924.9] Diagnosis: ENCNTR LONG-RX USE NEC[ICD9: V58.69] Karma Bahena MD [facility] CPT- 4: 80428 08/15/2013 ([id number]) 76646 EST. PATIENT, LEVEL IV Diagnosis: ESSENTIAL HYPERTENSION[SNOMED: 57171917] Diagnosis: Hematuria[ICD9: 599.70] Diagnosis: Dysuria[ICD9: 788.1] Karma Bahena MD [facility] CPT-4: 87731 08/01/2013 ([id number]) 31977 EST. PATIENT, LEVEL III Diagnosis: UTI[ICD9: 599.0] Diagnosis: Hematuria[ICD9: 599.70] Laura Bahena MD [facility] CPT-4: 16947 07/01/2013 ([id number]) 90445 EST. PATIENT, LEVEL III Diagnosis: ATRIAL FIBRILLATION[ICD9: 427.31] Diagnosis: ESSENTIAL HYPERTENSION[SNOMED: 79743262] Karma Bahena MD [facility] CPT-4: 70874 05/29/2013 ([id number]) 88522 EST. PATIENT, LEVEL IV Diagnosis: Atrial fibrillation[ICD9: 427.31] Diagnosis: Encounter for monitoring digoxin therapy[ICD9: V58.83] Diagnosis: ESSENTIAL HYPERTENSION[SNOMED: 86018288] Karma Bahena MD [facility] CPT-4: 40468 05/15/2013 ([id number]) 12434 EST. PATIENT, LEVEL IV Diagnosis: ESSENTIAL HYPERTENSION[SNOMED: 39947546] Diagnosis: ATRIAL FIBRILLATION[ICD9: 427.31] Diagnosis: PALPITATIONS[ICD9: 785.1] Diagnosis: Dizziness and giddiness[ICD9: 780.4] Karma Bahena MD [facility] CPT- 4: 92703 04/23/2013 ([id number]) 25159 EST. PATIENT, LEVEL III Diagnosis: OTHER CONSTIPATION[ICD9: 564.09] Diagnosis: ABDOM PAIN NOS SITE[ICD9: 789.00] Laura Bahena MD [facility] CPT- 4: 71352 03/21/2013 ([id number]) 99346 EST. PATIENT, LEVEL IV Diagnosis: ESSENTIAL HYPERTENSION[SNOMED: 55649410] Diagnosis: Atrial fibrillation[ICD9: 427.31] Karma Bahena MD [facility] CPT- 4: 02237 01/16/2013 ([id number]) Miscellaneous no charge Diagnosis: CELLULITIS OF HAND[ICD9: 682.4] Karma Bahena MD [facility] CPT-4: 85883 12/19/2012 ([id number]) Miscellaneous no charge Diagnosis: ENCOUNTER FOR THERAPEUTIC DRUG MONITORING[ICD9: V58.83] Diagnosis: CELLULITIS OF HAND[ICD9: 682.4] Karma Bahena MD [facility] CPT-4: 37575 12/14/2012 Miscellaneous no charge Diagnosis: CELLULITIS OF HAND[ICD9: 682.4] PARVEEN Freitas MD CPT-4: 41885 12/12/2012 16496 EST. PATIENT, LEVEL II Diagnosis: CELLULITIS OF HAND[ICD9: 682.4] Diagnosis: ENCNTR LONG-RX USE NEC[ICD9: V58.69] Diagnosis: LONG-TERM USE ANTICOAGUL[ICD9: V58.61] Karma Bahena MD [facility] CPT-4: 52220 12/11/2012 ([id number]) 38927 EST. PATIENT, LEVEL III Diagnosis: CELLULITIS OF HAND[ICD9: 682.4] PARVEEN Freitas MD CPT-4: 48673 12/10/2012 ([id number]) 58081 EST. PATIENT, LEVEL IV Diagnosis: Elevated digoxin level[ICD9: 796.0] Diagnosis: ATRIAL FIBRILLATION[ICD9: 427.31] Diagnosis: Inflammatory arthritis[ICD9: 714.9] Karma Bahena MD [facility] CPT- 4: 02963 10/30/2012 ([id number]) 71448 EST. PATIENT, LEVEL IV Diagnosis: Atrial fibrillation[ICD9: 427.31] Diagnosis: Anticoagulant long-term use[ICD9: V58.61] Diagnosis: ESSENTIAL HYPERTENSION[SNOMED: 32438978] [facility] CPT-4: 24136 08/08/2012 ([id number]) 90980 EST. PATIENT, LEVEL IV Diagnosis: ABDOM PAIN NOS SITE[ICD9: 789.00] Diagnosis: Constipation - functional[ICD9: 564.09] Diagnosis: EDEMA[ICD9: 782.3] Diagnosis: ATRIAL FIBRILLATION[ICD9: 427.31] [facility] CPT- 4: 65597 07/11/2012 ([id number]) 22822 EST. PATIENT, LEVEL III Diagnosis: Cystocele[ICD9: 618.01] Diagnosis: Rectocele[ICD9: 618.04] Karma Bahena MD [facility] CPT-4: 63629 05/08/2012 ([id number]) 53125 EST. 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 PATIENT, LEVEL IV Diagnosis: ATRIAL FIBRILLATION[ICD9: 427.31] Diagnosis: URGE INCONTINENCE[ICD9: 788.31] Diagnosis: MALAISE AND FATIGUE[ICD9: 780.79] Diagnosis: Dyspnea[ICD9: 786.09] Karma Bahena MD [facility] CPT-4: 76152 02/20/2012 58800 EST. PATIENT, LEVEL IV Diagnosis: Hematuria[ICD9: 599.70] Diagnosis: Vaginal yeast infection[ICD9: 112.1] Diagnosis: ATRIAL FIBRILLATION[ICD9: 427.31] Laura Bahena MD [facility] CPT- 4: 00299 02/13/2012 ([id number]) 27357 EST. PATIENT, LEVEL IV Diagnosis: Atrial fibrillation[ICD9: 427.31] Diagnosis: Anticoagulation goal of INR 2 to 3[ICD9: V58.83] Diagnosis: Urinary incontinence, urge[ICD9: 788.31] Diagnosis: ESSENTIAL HYPERTENSION[SNOMED: 93820288] Karma Bahena MD [facility] CPT-4: 30051 02/01/2012 ([id number]) 91087 EST. PATIENT, LEVEL IV Diagnosis: Atrial fibrillation[ICD9: 427.31] Diagnosis: Anticoagulant long-term use[ICD9: V58.61] Diagnosis: ESSENTIAL HYPERTENSION[SNOMED: 78532365] Karma Bahena MD [facility] CPT-4: 28985 2012 16916 EST. PATIENT, LEVEL IV Diagnosis: UTI[ICD9: 599.0] Diagnosis: ESSENTIAL HYPERTENSION[SNOMED: 79934121] Diagnosis: MALAISE AND FATIGUE[ICD9: 780.79] Diagnosis: Esophageal reflux[ICD9: 530.81] Karma Bahena MD, [facility] CPT-4: 60634 12/01/2011 ([id number]) 78968 EST. PATIENT, LEVEL IV Diagnosis: UTI (urinary tract infection)[ICD9: 599.0] Diagnosis: ESSENTIAL HYPERTENSION[SNOMED: 87363481] Diagnosis: URGE INCONTINENCE[ICD9: 788.31] Karma Bahena MD [facility] CPT-4: 24379 11/23/2011 ([id number]) 12805 EST. PATIENT, LEVEL IV Diagnosis: ESSENTIAL HYPERTENSION[SNOMED: 08297818] Diagnosis: IMPACTED CERUMEN[ICD9: 380.4] Diagnosis: MALAISE AND FATIGUE[ICD9: 780.79] Diagnosis: EDEMA[ICD9: 782.3] Karma Bahena MD, [facility] CPT-4: 29010 10/03/2011 [id number] EST. PATIENT, LEVEL IV Diagnosis: ESSENTIAL HYPERTENSION[SNOMED: 54723857] Diagnosis: Generalized osteoarthritis[ICD9: 715.09] Diagnosis: OSTEOPOROSIS[ICD9: 733.00] Karma Bahena MD, [facility] CPT-4: 34314 08/08/2011 [id number] EST. PATIENT, LEVEL IV Diagnosis: Muscle cramp[ICD9: 729.82] Diagnosis: Torticollis[ICD9: 723.5] Diagnosis: Rash[ICD9: 782.1] Karma Bahena MD, [facility] CPT-4: 71151 05/09/2011 [id number] EST. PATIENT, LEVEL IV Diagnosis: Leg cramps, sleep related[ICD9: 327.52] Diagnosis: Underweight[ICD9: 783.22] Karma Bahena MD, [facility] CPT-4: 01780 03/29/2011 [id number] EST. PATIENT, LEVEL IV Diagnosis: UTI[ICD9: 599.0] Diagnosis: Urge incontinence[ICD9: 788.31] Diagnosis: Loss of weight[ICD9: 783.21] Diagnosis: Palpitations[ICD9: 785.1] Diagnosis: Peripheral neuropathy, idiopathic[ICD9: 356.9] Karma Bahena MD, [facility] CPT-4: 55516 03/15/2011 Plan of Care Planned Activity Notes [...] or concerns. 09/12/2018 Appointment: Katharine Dai WPtel: [address] [place], [place] [phone] (15 min) Moderate 09/12/2018 Patient Education: Patient Medication Summary Completed 09/12/2018 Appointment: Karma Bahena WPtel: [address] [place], [place] [phone] (15 min) Moderate 08/16/2018 Visit Plan: I [...] surgically removed. 08/14/2018 Appointment: Karma Bahena WPtel: [address] [place], [place] [phone] (15 min) Moderate 08/14/2018 Patient Education: Patient [...] removed. 07/26/2018 Appointment: Karma Bahena WPtel: [place] [facility] (15 min) Moderate 07/26/2018 Patient Education: Patient [...] the symptoms are not improving. 06/04/2018 Appointment: JosefKarma WPtel: [phone] [facility] (15 min) Moderate 06/04/2018 Patient Education: Patient Medication Summary Completed 06/04/2018 Appointment: Karma Bahena WPtel: [phone] [facility] (15 min) Moderate 03/14/2018 Visit Plan: Hypertension [...] of control. 01/31/2018 Appointment: Katharine Dai WPtel: [phone] [facility] [facility] - Annual Wellness Visit 01/31/2018 Patient [...] allergy spray. 12/14/2017 Appointment: Karma Bahena WPtel: [facility] (15 min) Moderate 12/14/2017 Patient Education: Patient [...] spray. 12/07/2017 Appointment: Katharine Dai WPtel: [facility] (15 min) Moderate 12/07/2017 Patient Education: Patient [...] q 3 months or q 6 m [facility] based on previous levels of control. 11/14/2017 Appointment: Karma Bahena WPtel: [phone] [facility] (15 min) Moderate 11/14/2017 Patient Education: Patient [...] today. 03/27/2017 Appointment: Karma Bahena WPtel: [phone] [facility] (15 min) Moderate 03/27/2017 Patient Education: Patient [...] care surrogate. 01/23/2017 Appointment: Katharine Dai WPtel: [facility] [facility] - Annual Wellness Visit 01/23/2017 Patient [...] becoming uncontrolled. 01/19/2017 Appointment: Karma Bahena WPtel: [address] [place], [place] [phone] (15 min) Moderate 01/19/2017 Patient Education: Patient Medication Summary Completed 01/19/2017 Care Plan: Referral Order SNOMED-CT : [id number] Pending 01/19/2017 Appointment: Karma Bahena WPtel: [address] [place], [place] [phone] (15 min) Moderate 01/04/2017 Appointment: Karma Bahena WPtel: [address] [place], [place] [phone] (15 min) Moderate 12/28/2016 Visit Plan: TPX-kresb-slc zpack-call if symptoms do not resolve or if any worse. Patient verbalized understanding of plan. 11/29/2016 Appointment: Laura Colin WPtel: [facility] (15 min) Moderate 11/29/2016 Patient Education: Patient [...] pharmacy. 11/23/2016 Appointment: Katharine Dai WPtel: [phone] [facility] (15 min) Moderate 11/23/2016 Patient Education: Patient Medication Summary Completed 11/23/2016 Visit Plan: Pharyngitis-Discussed natural and expected course of this diagnosis and need to alert me if symptoms do not follow expected course, or if any worse. Recommended salt water gargles as needed for pain. Ty lenol/motrin as needed for fever/discomfort. 11/21/2016 Appointment: Laura Colin WPtel: [phone] [phone] (15 min) Moderate 11/21/2016 Patient Education: [...] monitor symptoms. 11/08/2016 Appointment: Karma Bahena WPtel: [phone] [facility] (10 min) Simple 11/08/2016 Patient [...] etc. 11/02/2016 Appointment: Karma Bahena WPtel: [phone] [facility] (15 min) Moderate 11/02/2016 Appointment: Nurse Visit 11/02/2016 Patient Education: Patient Medication Summary Completed 11/02/2016 Appointment: Nurse Visit 10/31/2016 Visit Plan: Laceration-right forearm- Pt was instructed to keep the wound clean, cleanse with sterile saline, use bactroban ointment, call if redness, pustular drainage, or any other acute concerns. Follow up Monday for dressing changes. 10/27/2016 Appointment: Laura Colin WPtel: [phone] [phone] [place] (30 min) Complex 10/27/2016 Patient [...] symptoms. 08/31/2016 Appointment: Karma Bahena WPtel: [phone] [facility] (15 min) Moderate 08/31/2016 Patient [...] your swelling. 07/27/2016 Appointment: Karma Bahena WPtel: [address] [place], [place] [address] (15 min) Moderate 07/27/2016 Patient Education: Patient [...] of lasix 06/23/2016 Appointment: Karma Bahena WPtel: [address] [place], [place] [phone] (15 min) Moderate 06/23/2016 Patient Education: Patient Medication Summary Completed 06/23/2016 Patient Education: Hypertension Completed 06/23/2016 Visit Plan: Edema - with Dyspnea - RX for laxis and compression socks - pt to call if not improving. 06/09/2016 Appointment: Karma Bahena WPtel: [facility] [place] (15 min) Moderate 06/09/2016 Patient Education: Patient Medication Summary Completed 06/09/2016 Visit Plan: Abdominal pain and rectal itching - recommended pt to use betamethasone on vaginal/rectal region, monitor symptoms call if not improving. Continue with beano and simethicone 05/25/2016 Appointment: Karma Bahena WPtel: [facility] [place] (15 min) Moderate 05/25/2016 Patient Education: Patient Medication Summary Completed 05/25/2016 Care Plan: SCREENINGMAMMOGRAPHYDIGITAL [facility] : 47074-1 Pending 05/20/2016 Visit Plan: Abdominal distension - use simethicone four times daily - after meals - if it does not help - in the next two weeks - call the office and we will do a ct scan of the abdomen and pelvis 05/17/2016 Appointment: Karma Bahena WPtel: [phone] [facility] (15 min) Moderate 05/17/2016 Patient Education: Patient [...] ointment 03/24/2016 Appointment: Karma Bahena WPtel: [phone] [facility] (30 min) Complex 03/24/2016 Patient Education: Patient [...] allergy spray. 12/21/2015 Appointment: Laura Colin WPtel: [phone] [facility] (30 min) Complex 12/21/2015 Patient [...] rate is becoming uncontrolled. 11/03/2015 Appointment: Karma Baehna WPtel: [phone] [facility] (15 min) Moderate 11/03/2015 Patient Education: Patient [...] Hypertension Completed 09/01/2015 Appointment: Karma Bahena WPtel: [phone] [facility] (15 min) Moderate 07/13/2015 Visit Plan: Hematuria/Urethritis [...] 05/13/2015 Care Plan: Referral Order SNOMED-CT : [id number] Ordered 05/08/2015 Visit Plan: Atrial Fibrillation - [...] Collins. 05/07/2015 Appointment: Karma Bahena WPtel: [phone] [facility] (15 min) Moderate 05/07/2015 Patient Education: Patient [...] uncontrolled. 10/30/2014 Appointment: Karma Bahena WPtel: [facility] [place] Follow up 10/30/2014 Patient Education: Patient Medication Summary Completed 10/30/2014 Appointment: Karma Bahena WPtel: [phone] [facility] Follow up 07/22/2014 Visit Plan: Atrial Fibrillation [...] hospital. 07/11/2014 Appointment: Karma Bahena WPtel: [facility]3 [facility] Sick 07/11/2014 Patient Education: Patient Medication Summary Completed 07/11/2014 Appointment: Karma Bahena WPtel: [address] [place], [place] [phone] Follow up 07/07/2014 Visit Plan: Urinary incontinence [...] times weekly. 05/20/2014 Appointment: Karma Bahena WPtel: [address] [place], [place] [phone] Follow up 05/20/2014 Patient Education: Patient Medication Summary Completed 05/20/2014 Appointment: Karma Bahena WPtel: [address] [place] [address] [place] Lab Draw 05/14/2014 Patient Education: Patient [...] recommended vesicare. 04/29/2014 Appointment: Karma Bahena WPtel: [address] [place] [address] Follow up 04/29/2014 Patient Education: Patient Medication [...] allergy spray. 03/20/2014 Appointment: Karma Bahena WPtel: [facility] Sick 03/20/2014 Patient Education: Patient Medication Summary [...] becoming uncontrolled. 03/05/2014 Appointment: Karma Bahena WPtel: [address] [place], [place] [phone] Follow up 03/05/2014 Patient Education: Patient Medication [...] with report. 01/29/2014 Appointment: Karma Bahena WPtel: [facility] Follow up 01/29/2014 Patient Education: Patient Medication [...] exposure,and dyspnea on exertion - will ask [place] Patient do an overnight oxygen study on [place] as she has cardiac history, weight loss, and nocturnal hypoxemia may be a part of her weight loss and fatigue. 12/25/2013 Appointment: Karma Bahena WPtel: [phone] [facility] Follow up 12/25/2013 Patient Education: Patient Medication [...] daily. 11/27/2013 Appointment: Karma Bahena WPtel: [phone] [facility] Follow up 11/27/2013 Patient Education: Patient Medication [...] Osteoarthritis - send pt to [facility] physical therapy for gereral osteoarhtritis program for strengthening and pain reduction. Hypertension - well controlled - continue with current medications, continue with no added salt diet. Pt has been encouraged to exercise daily. The pt has been advised to call the office if there are any acute concerns about change in blood pressure readings at home. 09/12/2013 Appointment: Karma Bahena WPtel: [phone] [facility] Follow up 09/12/2013 Patient Education: Patient Medication Summary Completed 09/12/2013 Patient Education: Hypertension Completed 09/12/2013 Appointment: Karma Bahena WPtel: [phone] [facility] Follow up 08/21/2013 Visit Plan: Hypertension - [...] PT/INR 08/15/2013 Appointment: Karma Bahena WPtel: [phone] [facility] Follow up 08/15/2013 Patient Education: Patient Medication [...] decrease irritation of urethra. 08/01/2013 Appointment: Karma Bahena: [facility] [place] Follow up 08/01/2013 Patient Education: Patient Medication Summary Completed 08/01/2013 Patient Education: Hypertension Completed 08/01/2013 Appointment: [facility]Ptel[phone] [place] Lab Draw 07/29/2013 Patient Education: Patient Medication Summary Completed 07/29/2013 Visit Plan: Osteoporosis-prolia on june 25-patient to let Dr Hansen know 07/01/2013 Appointment: Laura Colin WPtel: [facility] [place] Follow up 07/01/2013 Appointment: Karma Bahena WPtel: [facility] [place] Follow up 07/01/2013 Patient Education: Patient Medication Summary Completed 07/01/2013 Appointment: Karma Bahena WPtel: [facility] [place] Follow up 06/25/2013 Appointment: Karma Bahena WPtel: [address] [place] [address] [place] Lab Draw 06/20/2013 Patient Education: Patient Medication Summary Completed 06/20/2013 Appointment: Karma Bahena WPtel: [facility] [place] Lab Draw 06/19/2013 Visit Plan: Atrial [...] home. 05/29/2013 Appointment: Karma Bahena WPtel: [facility] [place] Follow up 05/29/2013 Patient Education: Patient [...] at home. 05/15/2013 Appointment: Karma Bahena WPtel: [address] [place] [address] Other 05/15/2013 Patient Education: Patient Medication Summary [...] shot today. 04/23/2013 Appointment: Karma Bahena WPtel: [address] [place], [place] [phone] Other 04/23/2013 Patient Education: Patient Medication Summary [...] regimen. 03/21/2013 Appointment: Laura Colin WPtel: [facility] Follow up 03/21/2013 Patient Education: [...] becoming uncontrolled. 01/16/2013 Appointment: Karma Bahena WPtel: [address] [place], [place] [phone] Follow up 01/16/2013 Patient Education: Patient Medication Summary Completed 01/16/2013 Patient Education: Hypertension Completed 01/16/2013 Visit Plan: Wound Instructions - Pt was instruced to keep the wound clean, wash with antibacterial soap, use triple antibiotic ointment, call if redness, pustular drainage, or any other acute conerns. 12/19/2012 Appointment: Karma Bahena WPtel: [address] [place], [place] [phone] Other 12/19/2012 Patient Education: Patient Medication Summary Completed 12/19/2012 Patient Education: Patient Medication Summary Completed 12/17/2012 Visit Plan: Cellulitis - improved- monitor symptoms - need to check handon Monday morning. 12/14/2012 Appointment: Karma Bahena WPtel: [address] [place], [place] [phone] Follow up 12/14/2012 Patient Education: Patient Medication Summary Completed 12/14/2012 Visit Plan: Cellulitis - improved- monitor symptoms - need to check handon Monday morning. 12/12/2012 Appointment: Karma Bahena WPtel: [facility] Work-in 12/12/2012 Patient Education: Patient Medication Summary [...] 12/10/2012 Appointment: Karma Bahena WPtel: [phone] [facility] [place] Other 12/10/2012 Patient Education: Patient Medication [...] uncontrolled. 10/30/2012 Appointment: Karma Bahena WPtel: [phone] [facility] Follow up 10/30/2012 Patient Education: Patient Medication Summary Completed 10/30/2012 Appointment: Laura Colin WPtel: [phone] [phone] [place] Lab Draw 09/13/2012 Patient Education: Patient [...] between 2.0 and 3.5. 08/08/2012 Appointment: Karma Bahenatel: [phone] [facility] Other 08/08/2012 Patient Education: Patient [...] regimen. 07/11/2012 Appointment: Karma Bahena WPtel: [phone] [facility] swelling, leg edema Other 07/11/2012 Patient Education: [...] vaginally. 05/08/2012 Appointment: Karma Bahena WPtel: [phone] [facility] Follow up 05/08/2012 Patient Education: [...] hospitalization. 04/18/2012 Appointment: Karma Bahena WPtel: [phone] [facility] [place] Follow up 04/18/2012 Patient Education: Patient Medication Summary Completed 04/18/2012 Patient Education: High Blood Pressure: Essential Hypertension Completed 04/18/2012 Appointment: Karma Bahena WPtel: [phone] [facility] [place] Follow up 04/09/2012 Appointment: Karma Bahena WPtel: [phone] [facility] [place] Lab Draw 04/04/2012 Appointment: Laura Colin WPtel: [facility] [place] Lab Draw 03/19/2012 Visit [...] Completed 03/13/2012 Appointment: Karma Bahena WPtel: [phone] [facility] Lab Draw 03/08/2012 Patient Education: Patient Medication [...] rehab. 02/20/2012 Appointment: Karma Bahena WPtel: [facility] [place] Other 02/20/2012 Patient Education: Patient Medication [...] uncontrolled. 02/13/2012 Appointment: Laura Colin WPtel: [phone] [place] Other 02/13/2012 Patient Education: Patient Medication Summary Completed 02/13/2012 Appointment: Karma Bahena WPtel: [phone] [facility] [place] Lab Draw 02/07/2012 Visit Plan: Atrial [...] medication. 02/01/2012 Appointment: Karma Bahena WPtel: [phone] [facility] Other 02/01/2012 Patient Education: Patient Medication Summary Completed 02/01/2012 Patient Education: High Blood Pressure: Essential Hypertension Completed 02/01/2012 Appointment: Karma Bahena WPtel: [phone] [facility] [place] Lab Draw 01/17/2012 Visit Plan: Atrial [...] at home. 2012 Appointment: Karma Bahena WPtel: [facility] [place]5 [address] Other 2012 Patient Education: Patient Medication Summary Completed 2012 Patient Education: High Blood Pressure: Essential Hypertension Completed 2012 Appointment: Karma Bahena WPtel: [facility] [place]5 [address] Follow up 12/20/2011 Visit Plan: Dicyclomine [...] emergency room. 12/01/2011 Appointment: Karma Bahena WPtel: [facility]5 [facility]66[facility] Other 12/01/2011 Patient Education: Patient Medication Summary [...] infection resolves. 11/23/2011 Appointment: Laura Colin WPtel: [address] [place] [address] [place] Other 11/23/2011 Patient Education: Patient Medication Summary Completed 11/23/2011 Patient Education: High Blood Pressure: Essential Hypertension Completed 11/23/2011 Visit Plan: Cerumen Impaction - The impacted cerumen was removed with the use of either ear currette alone or in combination with ear curette and water pick. The patient tolerated the procedure without incident and had improvement in hearing 10/17/2011 Appointment: Laura Colin WPtel: [address] [place] [address] [place] Other 10/17/2011 Patient Education: Patient Medication [...] by irrigation. 10/03/2011 Appointment: Karma Bahena WPtel: [address] [place] [address] Other 10/03/2011 Patient Education: Patient Medication Summary [...] is evidence. 08/08/2011 Appointment: Karma Bahena WPtel: [facility] [address] Other 08/08/2011 Patient Education: Patient Medication Summary Completed 08/08/2011 Patient Education: High Blood Pressure: Essential Hypertension Completed 08/08/2011 Visit Plan: Muscle cramps - the cramps are a little better, continue with the Diltiazem and it is okay to use the over the counter supplement with quinine - but use it sparingly. For the rash, use the prescripti on the surgical supervisor prescribed for the itching , call if the rash is not improved. Torticollis - continue with physical therapy, call if the neck muscles do not continue to show improvement. 05/09/2011 Appointment: Karma Bahena WPtel: [facility]6 [facility] Other 05/09/2011 Patient Education: Patient Medication Summary [...] aerobics. 03/29/2011 Appointment: Karma Bahena WPtel: [phone] [facility] [place] Other 03/29/2011 Patient Education: Patient Medication Summary Completed 03/29/2011 Appointment: Karma Bahena WPtel: [phone] [facility] Other 03/17/2011 Visit Plan: UTI - UA negative. Urge incontinence- restart on the vesicare- at 5 mg. Continue to avoid caffinated foods/fluids. Peripheral Neuropathy - per community chest officer report - Continue with the metanex. Loss of weight - WEIGHT CHECK IN 2 WKS. Palpitations- likely stress induced. If the symptoms worsen, call the office. 03/15/2011 Appointment: Karma Bahena WPtel: 1012 [facility] Follow up 03/15/2011 Patient Education: Patient Medication [...] would need to be surgically removed. . Atrial Fibrillation - pt on chronic anticoagulation and is currently rate controlled. The pt is to have labs done as appropriate to monitor medication levels and is to report if they start to feel as if their heart rate is becoming uncontrolled. Digoxin and Coumadin doses are good for control of anticoagulation and heart rate. Osteoarthritis - send pt to [facility] physical therapy for gereral osteoarhtritis program for [...] For the rash, use the prescription the surgical supervisor prescribed for the itching , call if [...] in blood pressure readings at home. . OEI-xujla-ljf zpack-call if symptoms do not resolve or [...] consistency, recheck at follow up appointment. . Cellulitis - improved- monitor symptoms - need to check handon Monday morning. . UTI - UA negative. Urge incontinence- restart on the vesicare- at 5 mg. Continue to avoid caffinated foods/fluids. Peripheral Neuropathy - per community chest officer report - Continue with the metanex. Loss [...] referral to Dr. Collins. . Hypertension - well controlled - continue [...] incident and had improvement in hearing . Abdominal pain and rectal itching - [...] in the nasal steroid (nasacort) allergy spray. seborrheic Keratosis on left breast . Abdominal [...] their heart rate is becoming uncontrolled. Increase miralax to full dose daily. Constipation [...] the treatment when you get back from [place] - will also ask him about doing [...] continue with rx for prn steroid ointment Elevated digoxin level - pt was recommended [...] their heart rate is becoming uncontrolled. . Abdominal pain-N/V-patient acutely ill and requires [...] exposure,and dyspnea on exertion - will ask [place] Patient do an overnight oxygen study on [...] in blood pressure readings at home. . Wound care - continue with dressing changes, daily use of bactroban - monitor symptoms. Return in 10 days for follow up [...]
--- OUTSIDE RECORDS SUMMARY | 2018-12-10 20:23 | XMS REPORT | CCD ---
Author Author Laura Colin Organization Karma Bahena MD, [facility] Address [address] [place] [address] Phone Care Team Providers Care Oleo Hasher And Renderer Name Role Phone Karma Bahena PP Unavailable CCM Unavailable Summary Purpose Interface Exchange Insurance Providers Payer name Policy type / Coverage type Covered democrat ID Effective Begin Date Effective End Date WPS Medicare Part B Medicare Part B [id number] 2018 Unknown AARP Medicare Part B [id number] 2018 Unknown Family history Sister Diagnosis Age [...] Unknown House 03/15/[address]: 446445490 Never smoker 03/15/2011 Has the patient ever used illegal drugs? Unknown Has never used illegal drugs 03/15/2011 Allergies, Adverse Reactions, Alerts Substance Reaction Codes Entered Date Inactivated Date Status BACTINE RxNorm: 443306 03/04/2011 No Inactive Date Active MICONAZOLE RxNorm: 6932 03/04/2011 No Inactive Date Active NEOSPORIN RxNorm: 157462 03/04/2011 No Inactive Date Active NEOMYCIN RxNorm: 7299 03/04/2011 No Inactive Date Active CORTISPORIN RxNorm: 45009 03/04/2011 No Inactive Date Active bactrim RxNorm: 670120 03/13/2012 No Inactive Date Active AUGMENTIN diarrhea RxNorm: 380582 2016 No Inactive Date Active METRONIDAZOLE Unknown [...] ICD-10: I10 Active 12/25/2013 Unknown 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 ICD-9: V58.83 ICD-10: [...] ICD-10: L72.0 Active 02/01/2016 Unknown 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 ICD-9: V58.69 ICD-10: Z79.899 [...] ICD-9: 401.9 ICD-10: I10 12/25/2013 Active Other assisted (current) drug therapy ICD-9: V58.83 ICD-10: Z79.899 [...] ICD-9: 706.2 ICD-10: L72.0 02/01/2016 Active Other assisted (current) drug therapy ICD-9: V58.69 ICD-10: Z79.899 [...] Fill Instructions Keflex 500 mg capsule RxNorm: 337189 1 Capsule(s) PO TID 09/12/2018 09/18/2018 Active cyclobenzaprine 5 mg tablet RxNorm: 574982 Tablet(s) TABLET(S) 1/2 TABLET(S) PO Q8 NEEDED MUSCLE SPASMS 08/14/2018 No Stop Date Active spironolactone 25 mg tablet RxNorm: 789377 1 Tablet(s) PO BID 08/14/2018 11/06/2019 Active see new directions and quantity Nitro-Bid 2 % transdermal ointment RxNorm: 554042 1 dime size amount TD BID to fingers and toes 08/14/2018 09/12/2018 Inactive cyclobenzaprine 5 mg tablet RxNorm: 309757 TABLET(S) 1/2 TABLET(S) PO Q8 NEEDED MUSCLE SPASMS 08/06/2018 08/13/2018 Inactive amlodipine 5 mg tablet RxNorm: 049609 1/2 Tablet(s) PO daily may take an extra 1/2 pill at the end of the day if blood pressure is elevated over 140 07/26/2018 12/22/2018 Active cefdinir 300 mg capsule RxNorm: 519760 1 Capsule(s) PO BID 06/20/2018 06/26/2018 Inactive cefdinir 300 mg capsule RxNorm: 788818 1 Capsule(s) PO BID 06/20/2018 06/19/2018 Inactive metoprolol succinate ER 50 mg tablet,extended release 24 hr RxNorm: 437973 1.5 Tablet(s) daily 06/15/2018 03/11/2019 Active sucralfate 100 mg/mL oral suspension RxNorm: 689024 2 Teaspoon(s) PO TID as needed with reflux symptoms 06/04/2018 No Stop Date Active Vesicare 10 mg tablet RxNorm: 571056 1 TABLET(S) PO EVERY OTHER DAY 05/14/2018 01/08/2019 Active levothyroxine 50 mcg tablet RxNorm: 131067 1 TABLET(S) PO DAILY 04/30/2018 07/28/2018 Inactive Patient requests 90 days supply spironolactone 25 mg tablet RxNorm: 341812 1 Tablet(s) PO daily 03/14/2018 08/13/2018 Inactive levothyroxine 50 mcg tablet RxNorm: 329247 1 Tablet(s) PO daily 02/01/2018 04/29/2018 Inactive Eliquis 2.5 mg tablet RxNorm: 2375840 1 Tablet(s) PO BID 01/31/2018 02/20/2018 Inactive levothyroxine 50 mcg tablet RxNorm: 872724 1 Tablet(s) PO daily 01/31/2018 01/31/2018 Inactive Eliquis 2.5 mg tablet RxNorm: 7600409 TAKE 1 TABLET BY MOUTH TWICE DAILY 01/23/2018 07/21/2018 Inactive metoprolol succinate ER 50 mg tablet,extended release 24 hr RxNorm: 158934 1 TABLET(S) PO DAILY 01/23/2018 01/30/2018 Inactive metoprolol succinate ER 50 mg tablet,extended release 24 hr RxNorm: 949027 1.5 Tablet(s) daily 01/22/2018 06/14/2018 Inactive lisinopril 20 mg tablet RxNorm: 481032 1/2 Tablet(s) daily 01/19/2018 01/21/2018 Inactive Patient requests 90 days supply Singulair 10 mg tablet RxNorm: 715573 TAKE 1 TABLET BY MOUTH AT BEDTIME 01/18/2018 04/17/2018 Inactive Patient requests 90 days supply Singulair 10 mg tablet RxNorm: 347255 Tablet(s) PO 01/17/2018 01/17/2018 Inactive digoxin 125 mcg tablet RxNorm: 623850 1 TABLET(S) PO DAILY 01/03/2018 12/28/2018 Active Symbicort 160 mcg-4.5 mcg/actuation HFA aerosol inhaler RxNorm: 3826284 2 Puff(s) INH BID 12/14/2017 04/12/2018 Inactive please dispense an aerochamber for patient as well as her symbicort pantoprazole 40 mg tablet,delayed release RxNorm: 259027 1 Tablet(s) PO daily 12/14/2017 12/08/2018 Active cyclobenzaprine 5 mg tablet RxNorm: 023834 Tablet(s) 1/2 TABLET(S) PO Q8 NEEDED MUSCLE SPASMS 12/14/2017 08/05/2018 Inactive ProAir RespiClick 90 mcg/actuation breath activated RxNorm: 9998466 1-2 INH QID as needed shortness of breath 12/14/2017 07/11/2018 Inactive cyclobenzaprine 5 mg tablet RxNorm: 943158 1/2 TABLET(S) PO Q8 NEEDED MUSCLE SPASMS 12/08/2017 12/13/2017 Inactive betamethasone dipropionate 0.05 % topical ointment RxNorm: 530817 1 Application TOP TID use topically on the rectal tissue three times daily x 1 week then as needed 11/13/2017 No Stop Date Active Premarin 0.625 mg/gram vaginal cream RxNorm: 404480 1/2 GRAM(S) VAG TIW 11/13/2017 12/12/2017 Inactive cyclobenzaprine 5 mg tablet RxNorm: 999731 1/2 TABLET(S) PO Q8 NEEDED MUSCLE SPASMS 10/17/2017 12/07/2017 Inactive Vesicare 10 mg tablet RxNorm: 839548 1 Tablet(s) PO every other day 10/17/2017 04/14/2018 Inactive lisinopril 20 mg tablet RxNorm: 693807 1 TABLET(S) PO DAILY 10/02/2017 01/18/2018 Inactive Patient requests 90 days supply levothyroxine 75 mcg tablet RxNorm: 712615 1 TABLET(S) PO DAILY 09/25/2017 01/30/2018 Inactive spironolactone 25 mg tablet RxNorm: 393794 1 TABLET(S) PO DAILY 08/16/2017 03/13/2018 Inactive cyclobenzaprine 5 mg tablet RxNorm: 282978 1/2 TABLET(S) PO Q8 NEEDED MUSCLE SPASMS 08/16/2017 10/16/2017 Inactive Eliquis 2.5 mg tablet RxNorm: 4259663 TAKE 1 TABLET BY MOUTH TWICE DAILY 07/26/2017 01/21/2018 Inactive cyclobenzaprine 5 mg tablet RxNorm: 751397 1/2 Tablet(s) PO Q8 as needed muscle spasms 06/19/2017 08/15/2017 Inactive lisinopril 20 mg tablet RxNorm: 816241 1 TABLET(S) PO DAILY 06/12/2017 10/01/2017 Inactive metoprolol succinate ER 50 mg tablet,extended release 24 hr RxNorm: 758652 1 TABLET(S) PO DAILY 04/07/2017 01/01/2018 Inactive spironolactone 25 mg tablet RxNorm: 082935 1 Tablet(s) PO daily 03/27/2017 03/13/2018 Inactive acyclovir 800 mg tablet RxNorm: 012727 1 Tablet(s) PO TID 03/21/2017 03/30/2017 Inactive acyclovir 800 mg tablet RxNorm: 865970 1 Tablet(s) PO TID 03/21/2017 03/20/2017 Inactive levothyroxine 75 mcg tablet RxNorm: 471065 1 Tablet(s) PO daily 03/16/2017 09/11/2017 Inactive spironolactone 25 mg tablet RxNorm: 574271 1 TABLET(S) PO DAILY 02/09/2017 03/26/2017 Inactive lisinopril 20 mg tablet RxNorm: 068966 1 TABLET(S) PO DAILY 01/02/2017 05/31/2017 Inactive Zithromax Z-Claudio 250 mg tablet RxNorm: 757897 1 Tablet(s) PO UD 11/29/2016 12/03/2016 Inactive ZPACK Keflex 500 mg capsule RxNorm: 888116 1 Capsule(s) PO TID 11/23/2016 12/02/2016 Inactive guaifenesin 400 mg tablet RxNorm: 629621 1 Tablet(s) PO Q6 as needed 11/23/2016 11/27/2016 Inactive omeprazole 40 mg capsule,delayed release RxNorm: 596700 1 Capsule(s) PO QPM 11/02/2016 12/13/2017 Inactive digoxin 125 mcg tablet RxNorm: 748607 1 TABLET(S) PO DAILY 10/27/2016 07/23/2017 Inactive cyclobenzaprine 5 mg tablet RxNorm: 704549 1/2 Tablet(s) PO Q8 PRN 10/25/2016 06/18/2017 Inactive prn muscle spasms Augmentin 500 mg-125 mg tablet RxNorm: 911549 1 Tablet(s) PO BID 10/24/2016 11/02/2016 Inactive Lasix 20 mg tablet RxNorm: 247194 Tablet(s) PRN one to two times a week if needed 07/27/2016 No Stop Date Active Patient requests 90 days supply spironolactone 25 mg tablet RxNorm: 439227 1 Tablet(s) PO daily 07/27/2016 02/08/2017 Inactive Diflucan 150 mg tablet RxNorm: 601352 1 Tablet(s) PO daily 07/27/2016 08/02/2016 Inactive lisinopril 20 mg tablet RxNorm: 550622 1 Tablet(s) PO daily 07/12/2016 01/01/2017 Inactive Lasix 20 mg tablet RxNorm: 211752 1 TABLET(S) PO EVERY OTHER DAY EVERY OTHER DAY 06/10/2016 07/26/2016 Inactive Patient requests 90 days supply potassium chloride ER 10 mEq capsule,extended release RxNorm: 750220 1 CAPSULE(S) PO EVERY OTHER DAY 06/10/2016 07/26/2016 Inactive Patient requests 90 days supply potassium chloride ER 10 mEq capsule,extended release RxNorm: 066204 1 Capsule(s) PO every other day 06/09/2016 06/09/2016 Inactive Lasix 20 mg tablet RxNorm: 980520 1 Tablet(s) PO every other day every other day 06/09/2016 06/09/2016 Inactive levothyroxine 88 mcg tablet RxNorm: 570250 1 Tablet(s) PO daily 05/11/2016 11/06/2016 Inactive Premarin 0.625 mg/gram vaginal cream RxNorm: 612892 1/2 Gram(s) VAG TIW 03/24/2016 03/18/2017 Inactive metoprolol succinate ER 50 mg tablet,extended release 24 hr RxNorm: 089825 1 Tablet(s) PO daily 03/24/2016 03/18/2017 Inactive pantoprazole 40 mg tablet,delayed release RxNorm: 876681 1 Tablet(s) PO daily 02/08/2016 11/01/2016 Inactive betamethasone dipropionate 0.05 % topical ointment RxNorm: 479592 1 Application TOP TID use topically on the rectal tissue three times daily x 1 week then as needed 02/02/2016 11/12/2017 Inactive pantoprazole 40 mg tablet,delayed release RxNorm: 582829 1 Tablet(s) PO daily 2016 02/07/2016 Inactive alprazolam 0.25 mg tablet RxNorm: 442228 1 Tablet(s) PO Q6 as needed 12/04/2015 No Stop Date Active Vesicare 10 mg tablet RxNorm: 609349 1 Tablet(s) PO every other day 11/03/2015 10/16/2017 Inactive alprazolam 0.25 mg tablet RxNorm: 418254 1 Tablet(s) PO Q6 as needed 11/03/2015 12/03/2015 Inactive Premarin 0.625 mg/gram vaginal cream RxNorm: 049871 1/2 Gram(s) VAG TIW 11/03/2015 03/23/2016 Inactive levothyroxine 88 mcg tablet RxNorm: 041231 1 Tablet(s) PO daily 11/03/2015 05/10/2016 Inactive Diflucan 150 mg tablet RxNorm: 681864 1 Tablet(s) PO daily 10/19/2015 10/25/2015 Inactive cetirizine 10 mg chewable tablet RxNorm: 6842604 1 Tablet(s) PO daily 10/13/2015 11/11/2015 Inactive cetirizine 10 mg capsule RxNorm: 4644813 1 Capsule(s) PO daily 10/13/2015 11/11/2015 Inactive Vesicare 10 mg tablet RxNorm: 805000 1/2 TABLET(S) PO BID 09/21/2015 11/02/2015 Inactive betamethasone dipropionate 0.05 % topical ointment RxNorm: 168557 1 Application TOP TID use topically on the rectal tissue three times daily x 1 week then as needed 09/15/2015 02/01/2016 Inactive lisinopril 20 mg tablet RxNorm: 673309 1 Tablet(s) PO daily 09/01/2015 07/11/2016 Inactive digoxin 125 mcg tablet RxNorm: 032897 1 Tablet(s) PO daily 09/01/2015 08/25/2016 Inactive Augmentin 500 mg-125 mg tablet RxNorm: 284080 1 Tablet(s) PO TID 05/26/2015 06/04/2015 Inactive Pyridium 200 mg tablet RxNorm: 3064664 1 Tablet(s) PO TID 05/26/2015 05/27/2015 Inactive levothyroxine 88 mcg tablet RxNorm: 167476 1 Tablet(s) PO daily except 1/2 pill on monday and 05/07/2015 11/02/2015 Inactive digoxin 125 mcg tablet RxNorm: 470432 1 Tablet(s) PO daily 05/07/2015 08/31/2015 Inactive lisinopril 20 mg tablet RxNorm: 870148 1 TABLET(S) PO BID 04/13/2015 09/01/2015 Inactive Coumadin 1 mg tablet RxNorm: 002122 1 TABLET(S) PO DAILY 03/31/2015 08/31/2015 Inactive Coumadin 2 mg tablet RxNorm: 142835 4MG IN AM AND 1MG AT NIGHT TABLET(S) PO DAILY DIRECTED. 03/31/2015 08/31/2015 Inactive levothyroxine 88 mcg tablet RxNorm: 708569 1 Tablet(s) PO daily 03/23/2015 05/06/2015 Inactive alprazolam 0.25 mg tablet RxNorm: 339094 Tablet(s) PO 03/23/2015 04/06/2015 Inactive levothyroxine 88 mcg tablet RxNorm: 331914 1 Tablet(s) PO daily 01/28/2015 03/22/2015 Inactive levothyroxine 88 mcg tablet RxNorm: 315751 1 Tablet(s) PO daily 01/28/2015 01/27/2015 Inactive diltiazem ER 120 mg capsule,extended release RxNorm: 561602 1 Capsule(s) PO BID patient would like 4 months at a time 01/06/2015 09/28/2015 Inactive digoxin 125 mcg tablet RxNorm: 461261 Tablet(s) 1 TABLET(S) PO DAILY 12/24/2014 12/23/2014 Inactive pt will be paying palomares (On $4 list)Patient requests 90 days supply digoxin 125 mcg tablet RxNorm: 869764 Tablet(s) 1 TABLET(S) PO DAILY M W F Sat and 2 tabs on T 12/24/2014 05/06/2015 Inactive pt will be paying [employer]omares (On $4 list)Patient requests 90 days supply dicyclomine 20 mg tablet RxNorm: 652953 1 Tablet(s) PO daily 11/17/2014 08/31/2015 Inactive one ac dinner and up to tid prn levothyroxine 88 mcg tablet RxNorm: 540329 1 Tablet(s) PO daily 11/03/2014 01/27/2015 Inactive Premarin 0.625 mg/gram vaginal cream RxNorm: 854611 1 APPLICATION VAG 1 APPLICATOR PER VAGINA 3 TIMES PER WEEK 11/03/2014 07/30/2015 Inactive digoxin 125 mcg tablet RxNorm: 924025 1 TABLET(S) PO DAILY 09/29/2014 12/23/2014 Inactive pt will be paying palomares (On $4 list)Patient requests 90 days supply digoxin 125 mcg tablet RxNorm: 999621 1 TABLET(S) PO DAILY 07/11/2014 04/06/2015 Inactive Vesicare 10 mg tablet RxNorm: 874764 1/2 Tablet(s) PO BID 05/20/2014 05/14/2015 Inactive Levaquin 500 mg tablet RxNorm: 359383 1 Tablet(s) PO daily 05/06/2014 05/08/2014 Inactive take probiotic BID while on ABT Levaquin 500 mg tablet RxNorm: 688158 1 Tablet(s) PO daily 05/02/2014 05/05/2014 Inactive take probiotic BID while on ABT diltiazem ER 120 mg capsule,extended release RxNorm: 093335 1 Capsule(s) PO BID patient would like 4 months at a time 04/29/2014 2015 Inactive Vesicare 10 mg tablet RxNorm: 731344 1/2 Tablet(s) PO BID 04/29/2014 05/19/2014 Inactive lisinopril 20 mg tablet RxNorm: 385751 1 Tablet(s) PO BID 03/20/2014 03/14/2015 Inactive diltiazem 90 mg tablet RxNorm: 319625 1/2 TABLET(S) PO QPM 03/04/2014 04/28/2014 Inactive also 180 q am diltiazem ER 120 mg capsule,extended release RxNorm: 322357 1 Capsule(s) PO daily patient would like 4 months at a time 01/29/2014 04/28/2014 Inactive Vesicare 10 mg tablet RxNorm: 202386 1 Tablet(s) PO QHS 01/14/2014 04/28/2014 Inactive Coumadin 2 mg tablet RxNorm: 401355 4mg in AM and 1mg at night Tablet(s) PO daily as directed. 12/25/2013 03/30/2015 Inactive Metanx 3 mg-35 mg-2 mg tablet RxNorm: 1 Tablet(s) PO daily 12/25/2013 11/02/2015 Inactive digoxin 125 mcg tablet RxNorm: 376381 1 Tablet(s) PO daily 12/25/2013 09/28/2014 Inactive pt will be paying paloma[employer] (On $4 list) Coumadin 2 mg tablet RxNorm: 208734 7.5 wed 5mg other Tablet(s) PO as directed. 12/03/2013 12/24/2013 Inactive omeprazole 20 mg tablet,delayed release RxNorm: 640516 1 Tablet(s) PO BID 11/27/2013 04/28/2014 Inactive Coumadin 2 mg tablet RxNorm: 763948 5 mg daily Tablet(s) PO as directed. 11/26/2013 12/02/2013 Inactive 5 mg daily Xanax 0.25 mg tablet RxNorm: 130129 1 Tablet(s) PO Q6 PRN 11/11/2013 12/25/2013 Inactive alprazolam 0.25 mg tablet RxNorm: 422619 tablet oral 11/11/2013 03/22/2015 Inactive sucralfate 1 gram tablet RxNorm: 066748 1 Tablet(s) PO AC & HS 11/04/2013 11/03/2013 Inactive sucralfate 1 gram tablet RxNorm: 258963 1 Tablet(s) PO AC & HS 11/04/2013 01/02/2014 Inactive Synthroid 100 mcg tablet RxNorm: 304547 1 Tablet(s) PO daily 10/31/2013 10/25/2014 Inactive Synthroid 100 mcg tablet RxNorm: 420918 1 Tablet(s) PO daily 09/30/2013 10/29/2013 Inactive Vesicare 10 mg tablet RxNorm: 227467 1 Tablet(s) PO QHS 09/30/2013 01/13/2014 Inactive Lotemax 0.5 % eye ointment RxNorm: 3239564 ointment opht 09/06/2013 12/10/2013 Inactive levothyroxine 100 mcg tablet RxNorm: 793733 tablet oral 09/05/2013 11/02/2014 Inactive Synthroid 100 mcg tablet RxNorm: 356543 1 Tablet(s) PO daily 09/05/2013 09/29/2013 Inactive Prolia 60 mg/mL Sub-Q Syringe RxNorm: 202616 1 Milliliter(s) SQ 06/25/2013 11/02/2015 Inactive dicyclomine 20 mg tablet RxNorm: 937787 1 Tablet(s) PO daily 06/24/2013 06/18/2014 Inactive one ac dinner and up to tid prn omeprazole 20 mg tablet,delayed release RxNorm: 861867 1 Tablet(s) PO BID 06/24/2013 11/26/2013 Inactive Cipro 500 mg tablet RxNorm: 827733 1 Tablet(s) PO BID 06/20/2013 06/26/2013 Inactive diltiazem ER 120 mg capsule,extended release RxNorm: 248442 1 Capsule(s) PO daily patient would like 4 months at a time 06/03/2013 01/28/2014 Inactive Coumadin 2 mg tablet RxNorm: 375586 as directed Tablet(s) PO as directed. 05/29/2013 11/25/2013 Inactive 5 mg daily Synthroid 88 mcg tablet RxNorm: 558249 1 Tablet(s) PO daily 04/24/2013 04/23/2013 Inactive Synthroid 88 mcg tablet RxNorm: 390998 1 Tablet(s) PO daily 04/24/2013 07/28/2013 Inactive Premarin 0.625 mg/gram vaginal cream RxNorm: 429519 1 Application VAG 1 applicator per vagina 3 times per week 04/23/2013 04/17/2014 Inactive Influenza Virus Vaccine 0.5 mL RxNorm: IM 04/23/2013 04/23/2013 Inactive digoxin 125 mcg tablet RxNorm: 520893 1 Tablet(s) PO daily 02/20/2013 04/20/2013 Inactive pt will be paying palomares (On $4 list) Digox 125 mcg tablet RxNorm: 8333088 tablet oral 02/13/2013 03/20/2014 Inactive digoxin 125 mcg tablet RxNorm: 192741 1 Tablet(s) PO daily 02/13/2013 02/19/2013 Inactive diltiazem 90 mg tablet RxNorm: 085574 1/2 Tablet(s) PO QPM 02/13/2013 02/07/2014 Inactive also 180 q am Levoxyl 75 mcg tablet RxNorm: 280049 1 Tablet(s) PO 01/16/2013 04/23/2013 Inactive Coumadin 2 mg tablet RxNorm: 539737 6mg daily except 3mg on mon and mon Tablet(s) PO 01/15/2013 05/28/2013 Inactive 5 mg daily Coumadin 2 mg tablet RxNorm: 202878 6mg daily Tablet(s) PO 12/21/2012 01/14/2013 Inactive 5 mg daily silver sulfadiazine 1 % Topical Cream RxNorm: 887330 TOP apply to affected area with each dressing change 12/19/2012 12/25/2013 Inactive cephalexin 500 mg tablet RxNorm: 273818 1 Tablet(s) PO TID 12/11/2012 12/17/2012 Inactive digoxin 125 mcg tablet RxNorm: 8951242 1 Tablet(s) PO daily 10/30/2012 02/12/2013 Inactive digoxin 125 mcg tablet RxNorm: 8587782 2 tab tue th one other days Tablet(s) PO daily 10/23/2012 10/29/2012 Inactive lisinopril 10 mg tablet RxNorm: 664824 1 Tablet(s) PO daily 10/17/2012 08/14/2013 Inactive Cipro 500 mg tablet RxNorm: 349006 1 Tablet(s) PO BID 09/13/2012 09/19/2012 Inactive Coumadin 1 mg tablet RxNorm: 381581 1 Tablet(s) PO daily 09/03/2012 09/02/2012 Inactive Coumadin 1 mg tablet RxNorm: 678047 1 Tablet(s) PO daily 09/03/2012 12/21/2012 Inactive Coumadin 2 mg tablet RxNorm: 840418 Tablet(s) PO 07/25/2012 12/20/2012 Inactive 5 mg daily digoxin 125 mcg tablet RxNorm: 1396264 1 Tablet(s) PO daily 06/28/2012 10/22/2012 Inactive Coumadin 2 mg tablet RxNorm: 352177 Tablet(s) PO 06/27/2012 07/24/2012 Inactive 5mg daily except 4mg on monday Coumadin 2 mg tablet RxNorm: 948230 Tablet(s) PO 06/19/2012 06/26/2012 Inactive 5mg e mon thur sat sun4mg mon frid(has 2mg and 1 mg tab) digoxin 125 mcg tablet RxNorm: 6681616 1 Tablet(s) PO daily 05/29/2012 06/27/2012 Inactive Coumadin 2 mg tablet RxNorm: 238020 Tablet(s) PO 05/15/2012 06/18/2012 Inactive 5mg tue thur sat sun4mg mon frid(has 2mg and 1 mg tab) Coumadin 2 mg tablet RxNorm: 231211 Tablet(s) PO 04/25/2012 05/14/2012 Inactive 5mg tue thru sat4mg mon frid sun(has 2mg and 1 mg tab) Metanx 3 mg-35 mg-2 mg tablet RxNorm: 1 Tablet(s) PO BID 04/18/2012 12/24/2013 Inactive dicyclomine 20 mg tablet RxNorm: 899142 1 Tablet(s) PO 04/18/2012 06/23/2013 Inactive one ac dinner and up to tid prn digoxin 125 mcg tablet RxNorm: 9054429 Tablet(s) PO daily except .25 on Tuesdays and 04/09/2012 05/28/2012 Inactive omeprazole 20 mg tablet,delayed release RxNorm: 495525 1 Tablet(s) PO BID 04/09/2012 04/03/2013 Inactive digoxin 125 mcg tablet RxNorm: 7398257 1 Tablet(s) PO UD daily except none on Tuesdays and 03/13/2012 04/08/2012 Inactive Premarin 0.625 mg/gram Vaginal Cream RxNorm: 207200 1 Application VAG 1 applicator per vagina 3 times per week 02/20/2012 02/13/2013 Inactive omeprazole 20 mg tablet,delayed release RxNorm: 105704 1 Tablet(s) PO BID 02/13/2012 04/08/2012 Inactive Vesicare 10 mg tablet RxNorm: 896869 1 Tablet(s) PO QHS 02/13/2012 02/06/2013 Inactive Diflucan 150 mg tablet RxNorm: 902685 1 Tablet(s) PO daily 02/13/2012 02/19/2012 Inactive omeprazole 20 mg tablet,delayed release RxNorm: 052946 1 Tablet(s) PO BID 01/06/2012 02/12/2012 Inactive Calcium 600 + D(3) 600 mg (1,500)-200 unit Tab RxNorm: 635122 2 Tablet(s) PO BID 01/06/2012 08/31/2015 Inactive diltiazem 90 mg tablet RxNorm: 125570 1/2 Tablet(s) PO QPM 12/26/2011 02/12/2013 Inactive also 180 q am diltiazem ER 180 mg Cap RxNorm: 716783 1 Capsule(s) PO QAM 12/26/2011 04/08/2012 Inactive 45mg q hs Flagyl 500 mg Tab RxNorm: 761281 1 Tablet(s) PO BID 12/14/2011 12/20/2011 Inactive dicyclomine 10 mg Cap RxNorm: 747873 1 Capsule(s) PO AC & HS 12/01/2011 12/25/2011 Inactive Levaquin 500 mg Tab RxNorm: 411619 1 Tablet(s) PO daily 11/23/2011 11/29/2011 Inactive Rocephin 500 mg Solution for Injection RxNorm: 844246 Inj 11/23/2011 11/23/2011 Inactive acyclovir 400 mg Tab RxNorm: 637292 1 Tablet(s) PO QID 11/10/2011 11/19/2011 Inactive acyclovir 400 mg Tab RxNorm: 526251 1 Tablet(s) PO QID 11/10/2011 11/09/2011 Inactive lisinopril 20 mg Tab RxNorm: 604657 1 Tablet(s) PO daily 10/03/2011 11/27/2011 Inactive lisinopril 20 mg Tab RxNorm: 759928 1 Tablet(s) PO daily 08/08/2011 10/02/2011 Inactive Reclast 5 mg/100 mL IV RxNorm: 318116 Milliliter(s) IV Yearly 06/08/2011 01/16/[address] Hansen managebrad Rocephin 500 mg Solution for Injection RxNorm: 782975 1 Milliliter(s) Inj 03/04/2011 08/08/2011 Inactive Ceftin 500 mg Tab RxNorm: 609777 1 Tablet(s) PO BID 03/04/2011 08/08/2011 Inactive Vitamin D3 1,000 unit tablet RxNorm: 222856 2 Tablet(s) PO daily No Start Date Active Stool Softener 100 mg tablet RxNorm: 2873444 2 Tablet(s) PO QHS No Start Date Active Beano tablet RxNorm: 2-3 Tablet(s) PO as needed No Start Date Active Probiotic Pearls 15 mg (1 billion cell) capsule,delayed release RxNorm: 1 Capsule(s) PO daily No Start Date Active Lipitor 10 mg tablet RxNorm: 617145 1 Tablet(s) PO daily No Start Date Active Miralax 17 gram oral powder packet RxNorm: 404462 1/2 packet PO QHS No Start Date Active multivitamin Tab RxNorm: 1 Tablet(s) PO daily No Start Date Active Tylenol Extra Strength 500 mg tablet RxNorm: 182993 2 Tablet(s) PO as needed No Start Date Active Combigan 0.2 %-0.5 % eye drops RxNorm: 735163 1 Drop(s) OPH BID No Start Date Active 1 drop twice daily left eye Lexapro 5 mg tablet RxNorm: 405422 1 Tablet(s) PO daily No Start Date Active Tatiana Allergy 180 mg tablet RxNorm: 024126 1 Tablet(s) PO daily No Start Date Active Lotemax 0.5 % eye drops,suspension RxNorm: 505898 1 Drop(s) OPH right eye BID No Start Date Active Levoxyl 50 mcg tablet RxNorm: 842088 1 Tablet(s) PO daily No Start Date 01/15/2013 Inactive lisinopril-hydrochlorothiazide 20 mg-25 mg Tab RxNorm: 332911 1 Tablet(s) PO daily No Start Date 08/07/2011 Inactive Metanx 3 mg-35 mg-2 mg tablet RxNorm: 1 Tablet(s) PO daily No Start Date 04/17/2012 Inactive diltiazem CD 120 mg capsule,extended release 24 hr RxNorm: 593833 1 Capsule(s) PO daily No Start Date 09/28/2015 Inactive lisinopril 20 mg tablet RxNorm: 759359 Tablet(s) PO No Start Date Active Lumigan 0.01 % Eye Drops RxNorm: 5278724 1 Drop(s) OPH daily Left eye No Start Date 12/10/2013 Inactive prednisolone acetate 1 % Eye Drops, Susp RxNorm: 1493513 1 Drop(s) OPH BID 1 drop right eye am and hs No Start Date 11/02/2015 Inactive Eliquis 5 mg tablet RxNorm: 4429400 1 Tablet(s) PO BID No Start Date 06/08/2016 Inactive potassium gluconate (bulk) Misc RxNorm: Miscellaneous No Start Date 12/25/2011 Inactive Calcium 600 + D(3) 600 mg (1,500)-200 unit Tab RxNorm: 031811 3 Tablet(s) PO daily No Start Date 2012 Inactive Zyrtec 10 mg tablet RxNorm: 8843383 1 Tablet(s) PO daily No Start Date 08/02/2016 Inactive Synthroid 100 mcg tablet RxNorm: 010125 1 Tablet(s) PO daily No Start Date 09/04/2013 Inactive metoprolol succinate ER 50 mg tablet,extended release 24 hr RxNorm: 584817 1 Tablet(s) PO daily No Start Date 03/23/2016 Inactive Carafate 100 mg/mL oral suspension RxNorm: 512972 2 Teaspoon(s) PO as needed with reflux symptoms No Start Date 06/03/2018 Inactive Metanx 3 mg-35 mg-2 mg tablet RxNorm: 1 Tablet(s) PO daily 2pm No Start Date 11/02/2015 Inactive Lexapro 5 mg tablet RxNorm: 760711 1 Tablet(s) PO daily No Start Date 08/18/2015 Inactive Iron (dried) oral RxNorm: 14254 oral No Start Date 11/02/2015 Inactive timolol 0.5 % Eye Drops RxNorm: 514002 1 Drop(s) OPH daily left eye No Start Date 12/18/2013 Inactive multivitamin Cap RxNorm: 1 Capsule(s) PO daily No Start Date 12/25/2011 Inactive dicyclomine 10 mg Cap RxNorm: 395465 2 Capsule(s) PO daily No Start Date 11/30/2011 Inactive silver sulfadiazine 1 % Topical Cream RxNorm: 444786 TOP apply to affected area with each dressing change No Start Date 12/18/2012 Inactive magnesium oxide 400 mg Tab RxNorm: 067876 1 Tablet(s) PO daily No Start Date 11/02/2015 Inactive Pradaxa 75 mg Cap RxNorm: 4622499 1 Capsule(s) PO BID No Start Date 04/09/2012 Inactive magnesium oxide 400 mg Tab RxNorm: 203544 2 Tablet(s) PO daily magnesium plus zinc No Start Date 12/25/2011 Inactive biotin 1000 mg RxNorm: 1 PO daily No Start Date 12/25/2011 Inactive Synthroid 50 mcg Tab RxNorm: 493990 Tablet(s) PO No Start Date 12/25/2011 Inactive diltiazem ER 180 mg Cap RxNorm: 368802 1 Capsule(s) PO daily No Start Date 12/25/2011 Inactive 1 D 3 1000 iu Oral RxNorm: Oral No Start Date 12/25/2011 Inactive Coumadin 2 mg tablet RxNorm: 649257 Tablet(s) PO No Start Date 04/24/2012 Inactive 5mg tue [id number] mon sat sun(has 2mg and 1 mg tab) dicyclomine 20 mg tablet RxNorm: 318306 Tablet(s) PO No Start Date 04/17/2012 Inactive one ac dinner and up to tid prn lactobacillus acidophilus tablet RxNorm: 1 Tablet(s) PO daily No Start Date 11/03/2015 Inactive Eliquis 2.5 mg tablet RxNorm: 8969938 1 Tablet(s) PO BID No Start Date 07/25/2017 Inactive Levoxyl 75 mcg Tab RxNorm: 737027 1 Tablet(s) PO daily No Start Date 10/02/2011 Inactive digoxin 125 mcg tablet RxNorm: 7408635 1 Tablet(s) PO daily No Start Date 03/12/2012 Inactive pantoprazole 40 mg tablet,delayed release RxNorm: 484983 1 Tablet(s) PO BID No Start Date 01/04/2016 Inactive cyclobenzaprine 5 mg tablet RxNorm: 594763 1/2 Tablet(s) PO Q8 PRN No Start Date 10/24/2016 Inactive diltiazem 90 mg Tab RxNorm: 222971 1/2 Tablet(s) PO QPM No Start Date 12/25/2011 Inactive Mirapex 1 mg Tab RxNorm: 830867 1 Tablet(s) PO QHS No Start Date 12/25/2011 Inactive Xanax 0.25 mg tablet RxNorm: 259652 1 Tablet(s) PO Q6 PRN No Start Date 11/10/2013 Inactive Premarin 0.625 mg/gram Vaginal Cream RxNorm: 669487 1 Application VAG 1 applicator per vagina 3 times per week No Start Date 02/19/2012 Inactive Synthroid 75 mcg Tab RxNorm: 972065 1 Tablet(s) PO daily No Start Date 04/17/2012 Inactive lisinopril 40 mg Tab RxNorm: 031827 1 Tablet(s) PO daily No Start Date 12/25/2011 Inactive Glucosamine Chondroitin Complex Advanced [id number]-1.65mg Tab RxNorm: 2 Tablet(s) PO daily No Start Date 08/08/2011 Inactive famotidine 20 mg tablet RxNorm: 027317 1 Tablet(s) PO QAM No Start Date 11/02/2015 Inactive cranberry extract 250 mg Tab RxNorm: 499070 2 Tablet(s) PO daily No Start Date 08/08/2011 Inactive Vitamin D3 1,000 unit capsule RxNorm: 623632 1 Capsule(s) PO daily No Start Date 08/31/2015 Inactive aspirin 81 mg Tab, Delayed Release RxNorm: 886781 1 Tablet(s) PO daily No Start Date 08/31/2015 Inactive diltiazem ER 120 mg capsule,extended release RxNorm: 927346 1 Capsule(s) PO daily patient would like 4 months at a time No Start Date 06/02/2013 Inactive omeprazole 20 mg Tab, Delayed Release RxNorm: 368367 2 Tablet(s) PO QHS No Start Date 2012 Inactive lisinopril 10 mg tablet RxNorm: 365347 1/2 Tablet(s) PO daily No Start Date 10/16/2012 Inactive Pred Forte 1 % Eye Drops RxNorm: 016525 1 Drop(s) OPH daily right eye No Start Date 12/25/2013 Inactive calcium carbonate 400 mg Chewable Tab RxNorm: 940051 1 Tablet(s) PO daily No Start Date 08/08/2011 Inactive Vesicare 10 mg tablet RxNorm: 009314 1 Tablet(s) PO QHS No Start Date 02/12/2012 Inactive Symbicort 160 mcg-4.5 mcg/actuation HFA aerosol inhaler RxNorm: 5056814 2 Puff(s) INH BID No Start Date 12/13/2017 Inactive potassium 99 mg tablet RxNorm: 1 Tablet(s) PO QPM No Start Date 12/25/2013 Inactive timolol 0.25 % Eye Drops RxNorm: 358630 1 Drop(s) OPH daily Left eye No Start Date 04/17/2012 Inactive diltiazem ER 90 mg capsule,extended release 12 hr RxNorm: 349350 1/2 Capsule(s) PO QPM No Start Date 04/28/2014 Inactive cyclobenzaprine 5 mg Tab RxNorm: 509195 1/2-1 Tablet(s) PO Q8 PRN No Start Date 12/25/2011 Inactive 1/2 - 1 tab q 8hrs prn muscle spasms Medication Administered Medication Codes Instructions Start Date Status Influenza Virus Vaccine 0.5 mL RxNorm: 04/23/2013 No longer Active Rocephin 500 mg Solution for Injection RxNorm: 965423 11/23/2011 No longer Active Immunizations Vaccine Codes [...] hypertension ICD-10: I10 ICD-9: 401.9 01/31/2018 Other assisted (current) drug therapy ICD-10: Z79.899 ICD-9: V58.83 [...] hemorrhoids ICD-10: K64.0 ICD-9: 455.6 03/24/2016 Other assisted (current) drug therapy ICD-10: Z79.899 ICD-9: V58.69 [...] 787.3 03/23/2015 Atrial fibrillation ICD-9: 427.31 03/23/2015 Abdominal pain ICD-9: 789.00 03/09/2015 ENCNTR LONG-ANTICOAG USE ICD-9: V58.61 03/09/2015 HYPOTHYROIDISM ICD-9: 244.9 10/30/2014 HEMATURIA NOS ICD-9: 599.70 10/30/2014 Osteoporosis ICD-9: 733.00 07/11/2014 Need for pneumococcal vaccine ICD-9: V03.82 07/11/2014 ALLERGIC RHINITIS ICD-9: 477.9 07/11/2014 Osteoarthritis ICD-9: 715.90 07/11/2014 Dysuria ICD-9: 788.1 05/20/2014 Urge incontinence [...] Item Item Code Result Date Comp Metabolic Mzs975 NA 130 mEq/L 09/12/2018 Comp Metabolic Fgg277 K 4.2 mEq/L 09/12/2018 Comp Metabolic Jfv232 CL 98 mEq/L 09/12/2018 Comp Metabolic Dup917 CO2 23.0 mEq/L 09/12/2018 Comp Metabolic Zul990 ANION GAP 13 09/12/2018 Comp Metabolic Ijm607 GLUCOSE 129 mg/dL 09/12/2018 Comp Metabolic Lgx330 Creat 1.0 mg/dL 09/12/2018 Comp Metabolic Bbj455 eGFR 58 ml/min/1.73m2 09/12/2018 Comp Metabolic Qsz171 BUN 28 mg/dL 09/12/2018 Comp Metabolic Bwa125 B/C Ratio 28.9 Ratio 09/12/2018 Comp Metabolic Owm520 CALCIUM 9.1 mg/dL 09/12/2018 Comp Metabolic Txe527 ALK PHOS 59 U/L 09/12/2018 Comp Metabolic Omv316 AST(SGOT) 21 U/L 09/12/2018 Comp Metabolic Icy393 ALT(SGPT) 19 U/L 09/12/2018 Comp Metabolic Iie624 BILI T 0.8 mg/dL 09/12/2018 Comp Metabolic Waa723 ALBUMIN 3.9 g/dL 09/12/2018 Comp Metabolic Zzk385 TPRO 6.5 g/dL 09/12/2018 Comp Metabolic Buq697 GLOB 2.6 g/dL 09/12/2018 Comp Metabolic Zqt859 A/G Ratio 1.5 Ratio 09/12/2018 Comp Metabolic Urq606 Osmo 268 mOsmo 09/12/2018 Tsh Ord6 TSH (3rd IS) 12.84 uIU/mL 09/12/2018 Influenza A+B Wmh960 Influ A+B Negative 09/12/2018 Cbc With Differential Ord2 WBC 6.89 K/ul 09/12/2018 Cbc With Differential Ord2 RBC 4.14 M/ul 09/12/2018 Cbc With Differential Ord2 HGB 13.1 g/dl 09/12/2018 Cbc With Differential Ord2 HCT 38.5 % 09/12/2018 Cbc With Differential Ord2 Neut% 74.0 % 09/12/2018 Cbc With Differential Ord2 MCV 93.0 fl 09/12/2018 Cbc With Differential Ord2 Lymph% 12.3 % 09/12/2018 Cbc With Differential Ord2 MCH 31.6 pg 09/12/2018 Cbc With Differential Ord2 [place]% 12.0 % 09/12/2018 Cbc With Differential Ord2 Eos% 1.6 % 09/12/2018 Cbc With Differential Ord2 MCHC 34.0 pg 09/12/2018 Cbc With Differential Ord2 PLT 187 K/ul 09/12/2018 Cbc With Differential Ord2 Baso% 0.1 % 09/12/2018 Cbc With Differential Ord2 Neut ABS# 5.09 K/ul 09/12/2018 Cbc With Differential Ord2 RDW 13.7 % 09/12/2018 Cbc With Differential Ord2 Lymph ABS# 0.85 K/ul 09/12/2018 Cbc With Differential Ord2 [place] ABS# 0.8 K/ul 09/12/2018 Cbc With Differential Ord2 Eos ABS# 0.1 K/ul 09/12/2018 Cbc With Differential Ord2 Baso ABS# 0.0 K/ul 09/12/2018 Free T4 Ajm516 FREE T4 1.10 ng/dL 09/12/2018 Free T4 Rdh963 FREE T4 1.19 ng/dL 05/08/2018 Digoxin Ord9 DIGOXIN 0.6 NG/ML 05/08/2018 Tsh Ord6 TSH (3rd IS) 10.58 uIU/mL 05/08/2018 Tsh Ord6 TSH (3rd IS) 1.07 uIU/mL 01/31/2018 Free T4 Sdv352 FREE T4 1.63 ng/dL 01/31/2018 Digoxin Ord9 DIGOXIN 0.8 NG/ML 01/31/2018 C RAP A SC [id number] Strep A Negative 11/21/2016 Thyroid Antibodies 616094 THYROGLOBULIN ANTIBODY . 11/04/2016 Thyroid Antibodies 689610 THYROGLOBULIN ANTIBODY 919 IU/mL 11/04/2016 Thyroid Antibodies 631397 THYROID PEROXIDASE (TPO) AB . 11/04/2016 Thyroid Antibodies 499267 THYROID PEROXIDASE (TPO) AB 10 IU/mL 11/04/2016 Total T3 Ord42 TT3 0.64 ng/ml 11/03/2016 Free T4 Ilz004 FREE T4 1.39 ng/dL 11/02/2016 Tsh Ord6 [...] Differential Ord2 RDW 13.8 % 05/26/2015 Pt Pbv9043 PT 25.0 seconds 05/26/2015 Pt Xcn4065 INR 2.4 05/26/2015 Pt Tyc7309 Low Intensity - 1.5-2.0 05/26/2015 Pt Xir4644 Mod intensity - 2.0-3.0 05/26/2015 Pt Pwq6560 Hi intensity - 3.0-4.0 05/26/2015 Uric Acid [...] Digoxin Ord9 DIGOXIN 0.6 NG/ML 05/06/2015 Pt Gfb9918 PT 23.3 seconds 05/06/2015 Pt Pnb2888 INR 2.1 05/06/2015 Pt Ehj0265 Low Intensity - 1.5-2.0 05/06/2015 Pt Kdi9629 Mod intensity - 2.0-3.0 05/06/2015 Pt Zxe5003 Hi intensity - 3.0-4.0 05/06/2015 Free T4 Vwl181 FREE T4 1.65 ng/dL 05/06/2015 Comp Metabolic Ene039 NA 132 mEq/L 05/06/2015 Comp Metabolic Hrm715 K 4.1 mEq/L 05/06/2015 Comp Metabolic Jip734 CL 98 mEq/L 05/06/2015 Comp Metabolic Lxu290 CO2 27.0 mEq/L 05/06/2015 Comp Metabolic Oym876 ANION GAP 11 05/06/2015 Comp Metabolic Veh597 GLUCOSE 71 mg/dL 05/06/2015 Comp Metabolic Fdg162 Creat 0.7 mg/dL 05/06/2015 Comp Metabolic Jsw573 eGFR 82 ml/min/1.73m2 05/06/2015 Comp Metabolic Zdt234 BUN 16 mg/dL 05/06/2015 Comp Metabolic Ycs867 B/C Ratio 22.2 Ratio 05/06/2015 Comp Metabolic Ili457 CALCIUM 9.4 mg/dL 05/06/2015 Comp Metabolic Kqo347 ALK PHOS 60 U/L 05/06/2015 Comp Metabolic Trb416 AST(SGOT) 22 U/L 05/06/2015 Comp Metabolic Qhe386 ALT(SGPT) 24 U/L 05/06/2015 Comp Metabolic Qkn723 BILI T 0.8 mg/dL 05/06/2015 Comp Metabolic Awi521 ALBUMIN 4.3 g/dL 05/06/2015 Comp Metabolic Fou243 TPRO 7.6 g/dL 05/06/2015 Comp Metabolic Sem254 GLOB 3.3 g/dL 05/06/2015 Comp Metabolic Pja804 A/G Ratio 1.3 Ratio 05/06/2015 Comp Metabolic Pgw911 Osmo 264 mOsmo 05/06/2015 DIGOXIN 4450959 DIGOXIN 1.1 NG/ML 05/15/2013 PT/MC 8801642 PRO TIME 21.7 SEC 05/15/2013 PT/MC 1172788 INR MCMC 2.0 05/15/2013 CHEM 14 6833484 AST 24 U/L 04/23/2013 CHEM 14 9658633 ALT 31 IU/L 04/23/2013 CHEM 14 1960582 BUN 13 MG/DL 04/23/2013 CHEM 14 7029979 ALBUMIN 4.1 GM/DL 04/23/2013 CHEM 14 5331367 CHLORIDE 103 MMOL/L 04/23/2013 CHEM 14 6002599 BILI TOT 0.5 MG/DL 04/23/2013 CHEM 14 8777781 ALK PHOS 44 U/L 04/23/2013 CHEM 14 6769073 SODIUM 137 MMOL/L 04/23/2013 CHEM 14 3927021 CREATININE 0.61 MG/DL 04/23/2013 CHEM 14 6046678 CALCIUM 9.5 MG/DL 04/23/2013 CHEM 14 3390493 POTASSIUM 4.0 MMOL/L 04/23/2013 CHEM 14 3857996 PROT TOT 6.6 GM/DL 04/23/2013 CHEM 14 6127224 GLUCOSE 99 MG/DL 04/23/2013 CHEM 14 6436986 BICARB 27 MMOL/L 04/23/2013 CHEM 14 1768758 ANION GAP 7 MEQ/L 04/23/2013 GFR CALC 5008751 GFR AA >60 ML/MIN 04/23/2013 GFR CALC 1963050 GFR NON-AA >60 ML/MIN 04/23/2013 TSH 5577839 TSH 4.204 uIU/ML 04/23/2013 CBC 6880927 WBC 6.7 10e9/L 04/23/2013 CBC 4543725 RBC 4.19 10e12/L 04/23/2013 CBC 3522444 HGB 13.2 g/dL 04/23/2013 CBC 8318637 HCT DET 39.2 % 04/23/2013 CBC 6114178 MCV 93.6 fL 04/23/2013 CBC 5212404 MCH 31.5 pg 04/23/2013 CBC 4307374 MCHC 33.7 g/dL 04/23/2013 CBC 4010410 PLT 202 10e9/L 04/23/2013 CBC 9457657 MPV 11.4 fL 04/23/2013 CBC 9061442 YANIRA % 70.5 % 04/23/2013 CBC 7851496 LY % 19.6 % 04/23/2013 CBC 2517415 MON % 8.2 % 04/23/2013 CBC 7449920 EOS % 1.6 % 04/23/2013 CBC 9096453 BASO % 0.1 % 04/23/2013 CBC 3808096 RDW 13.7 % 04/23/2013 CBC 3140006 ABS YANIRA 4.72 10e9/L 04/23/2013 CBC 0161548 ABS LYMPH 1.31 10e9/L 04/23/2013 CBC 5113899 ABS MONO 0.55 10e9/L 04/23/2013 CBC 2628191 ABS EOS 0.11 10e9/L 04/23/2013 CBC 5773024 ABS BASO 0.01 10e9/L 04/23/2013 CBC 2275583 RDW-SD 45.7 fL 04/23/2013 PT/MC 4162394 PRO TIME 13.4 SEC 12/17/2012 PT/MC 1283390 INR MCMC 1.0 12/17/2012 PT/MC 5067377 PRO TIME 16.6 SEC 12/14/2012 PT/MC 2535238 INR MCMC 1.4 12/14/2012 PT/MC 8675780 PRO TIME 27.2 SEC 12/11/2012 PT/MC 0033403 INR MCMC 2.6 12/11/2012 DIGOXIN 0400217 DIGOXIN 2.1 NG/ML 03/08/2012 GFR CALC 7515022 GFR AA >60 ML/MIN 03/08/2012 GFR CALC 2441136 GFR NON-AA >60 ML/MIN 03/08/2012 CHEM 14 8761950 AST 16 U/L 03/08/2012 CHEM 14 1903839 ALT 14 IU/L 03/08/2012 CHEM 14 2087012 BUN 10 MG/DL 03/08/2012 CHEM 14 2569012 ALBUMIN 4.2 GM/DL 03/08/2012 CHEM 14 2121690 CHLORIDE 100 MMOL/L 03/08/2012 CHEM 14 7781544 BILI TOT 0.5 MG/DL 03/08/2012 CHEM 14 6344771 ALK PHOS 59 U/L 03/08/2012 CHEM 14 8138961 SODIUM 136 MMOL/L 03/08/2012 CHEM 14 6735050 CREATININE 0.65 MG/DL 03/08/2012 CHEM 14 4126358 CALCIUM 9.4 MG/DL 03/08/2012 CHEM 14 0626635 POTASSIUM 3.9 MMOL/L 03/08/2012 CHEM 14 3247004 PROT TOT 6.7 GM/DL 03/08/2012 CHEM 14 3620105 GLUCOSE 90 MG/DL 03/08/2012 CHEM 14 7706977 BICARB 30 MMOL/L 03/08/2012 CHEM 14 0366858 ANION GAP 6 MEQ/L 03/08/2012 CHEM 14 7812104 AST 16 U/L 11/23/2011 CHEM 14 1096273 ALT 14 IU/L 11/23/2011 CHEM 14 2608480 BUN 11 MG/DL 11/23/2011 CHEM 14 2998622 ALBUMIN 4.1 GM/DL 11/23/2011 CHEM 14 6382807 CHLORIDE 100 MMOL/L 11/23/2011 CHEM 14 7442224 BILI TOT 0.5 MG/DL 11/23/2011 CHEM 14 7610651 ALK PHOS 50 U/L 11/23/2011 CHEM 14 0753459 SODIUM 135 MMOL/L 11/23/2011 CHEM 14 1443327 CREATININE 0.57 MG/DL 11/23/2011 CHEM 14 6780846 CALCIUM 9.1 MG/DL 11/23/2011 CHEM 14 6731540 POTASSIUM 4.5 MMOL/L 11/23/2011 CHEM 14 8378116 PROT TOT 6.5 GM/DL 11/23/2011 CHEM 14 5342366 GLUCOSE 89 MG/DL 11/23/2011 CHEM 14 0856847 BICARB 28 MMOL/L 11/23/2011 CHEM 14 1282473 ANION GAP 7 MEQ/L 11/23/2011 GFR CALC 0454518 GFR AA >60 ML/MIN 11/23/2011 GFR CALC 1151023 GFR NON-AA >60 ML/MIN 11/23/2011 CBC 9397859 WBC 5.1 10e9/L 11/23/2011 CBC 9248199 RBC 4.06 10e12/L 11/23/2011 CBC 7064091 HGB 12.5 g/dL 11/23/2011 CBC 6199526 HCT DET 37.3 % 11/23/2011 CBC 0051441 MCV 91.9 fL 11/23/2011 CBC 8159601 MCH 30.8 pg 11/23/2011 CBC 4632296 MCHC 33.5 g/dL 11/23/2011 CBC 9242201 PLT 222 10e9/L 11/23/2011 CBC 4669633 MPV 10.8 fL 11/23/2011 CBC 6763811 YANIRA % 64.2 % 11/23/2011 CBC 2114979 LY % 22.3 % 11/23/2011 CBC 2351638 MON % 11.3 % 11/23/2011 CBC 2699190 EOS % 1.8 % 11/23/2011 CBC 0779614 BASO % 0.4 % 11/23/2011 CBC 1648711 RDW 13.6 % 11/23/2011 CBC 2126259 ABS YANIRA 3.27 10e9/L 11/23/2011 CBC 7094036 ABS LYMPH 1.14 10e9/L 11/23/2011 CBC 3620569 ABS MONO 0.58 10e9/L 11/23/2011 CBC 6815594 ABS EOS 0.09 10e9/L 11/23/2011 CBC 2782025 ABS BASO 0.02 10e9/L 11/23/2011 CBC 3194401 RDW-SD 44.5 fL 11/23/2011 UA 69805 Specific [place] 1.005 03/04/2011 UA 85657 PH 6 03/04/2011 UA 76518 GLUCOSE N 03/04/2011 UA 84640 Protein N 03/04/2011 UA 46443 Blood ++ 03/04/2011 UA 02104 Bilirubin N 03/04/2011 UA 29354 Ketones N 03/04/2011 UA 33830 Urobilinogen N 03/04/2011 UA 79636 Nitrite N 03/04/2011 UA 20177 Leukocytes N 03/04/2011 URINALYSIS NONAUTO W/O SCOPE 02906 Specific [place] 1.010 DateTime(Free Text in Aprima) URINALYSIS NONAUTO W/O SCOPE 82185 PH 6.5 DateTime(Free Text in Aprima) URINALYSIS NONAUTO W/O SCOPE 49721 GLUCOSE neg DateTime(Free Text in Aprima) URINALYSIS NONAUTO W/O SCOPE 10447 Protein neg DateTime(Free Text in Aprima) URINALYSIS NONAUTO W/O SCOPE 26621 Blood 3+ DateTime(Free Text in Aprima) URINALYSIS NONAUTO W/O SCOPE 30181 Bilirubin neg DateTime(Free Text in Aprima) URINALYSIS NONAUTO W/O SCOPE 69732 Ketones neg DateTime(Free Text in Aprima) URINALYSIS NONAUTO W/O SCOPE 86926 Urobilinogen neg DateTime(Free Text in Aprima) URINALYSIS NONAUTO W/O SCOPE 90846 Nitrite neg DateTime(Free Text in Aprima) URINALYSIS NONAUTO W/O SCOPE 65814 Leukocytes neg DateTime(Free Text in Aprima) URINALYSIS NONAUTO W/O SCOPE 26419 Specific [place] 1.010 DateTime(Free Text in Aprima) URINALYSIS NONAUTO W/O SCOPE 12252 PH 5 DateTime(Free Text in Aprima) URINALYSIS NONAUTO W/O SCOPE 64643 GLUCOSE neg DateTime(Free Text in Aprima) URINALYSIS NONAUTO W/O SCOPE 29243 Protein neg DateTime(Free Text in Aprima) URINALYSIS NONAUTO W/O SCOPE 06521 Blood 3+ DateTime(Free Text in Aprima) URINALYSIS NONAUTO W/O SCOPE 49825 Bilirubin neg DateTime(Free Text in Aprima) URINALYSIS NONAUTO W/O SCOPE 70125 Ketones neg DateTime(Free Text in Aprima) URINALYSIS NONAUTO W/O SCOPE 95213 Urobilinogen neg DateTime(Free Text in Aprima) URINALYSIS NONAUTO W/O SCOPE 21189 Nitrite neg DateTime(Free Text in Aprima) URINALYSIS NONAUTO W/O SCOPE 54683 Leukocytes neg DateTime(Free Text in Aprima) URINALYSIS NONAUTO W/O SCOPE 90839 Specific [place] 1.005 DateTime(Free Text in Aprima) URINALYSIS NONAUTO W/O SCOPE 90331 PH 8.5 DateTime(Free Text in Aprima) URINALYSIS NONAUTO W/O SCOPE 65502 GLUCOSE neg DateTime(Free Text in Aprima) URINALYSIS NONAUTO W/O SCOPE 25498 Protein neg DateTime(Free Text in Aprima) URINALYSIS NONAUTO W/O SCOPE 67282 Blood 1+ DateTime(Free Text in Aprima) URINALYSIS NONAUTO W/O SCOPE 82118 Bilirubin neg DateTime(Free Text in Aprima) URINALYSIS NONAUTO W/O SCOPE 74513 Ketones neg DateTime(Free Text in Aprima) URINALYSIS NONAUTO W/O SCOPE 32942 Urobilinogen neg DateTime(Free Text in Aprima) URINALYSIS NONAUTO W/O SCOPE 58403 Nitrite neg DateTime(Free Text in Aprima) URINALYSIS NONAUTO W/O SCOPE 09940 Leukocytes neg DateTime(Free Text in Aprima) URINALYSIS NONAUTO W/O SCOPE 91670 Specific [place] 1.005 DateTime(Free Text in Aprima) URINALYSIS NONAUTO W/O SCOPE 53774 PH 7 DateTime(Free Text in Aprima) URINALYSIS NONAUTO W/O SCOPE 99422 GLUCOSE neg DateTime(Free Text in Aprima) URINALYSIS NONAUTO W/O SCOPE 42074 Protein neg DateTime(Free Text in Aprima) URINALYSIS NONAUTO W/O SCOPE 63775 Blood large DateTime(Free Text in Aprima) URINALYSIS NONAUTO W/O SCOPE 38917 Bilirubin neg DateTime(Free Text in Aprima) URINALYSIS NONAUTO W/O SCOPE 35110 Ketones neg DateTime(Free Text in Aprima) URINALYSIS NONAUTO W/O SCOPE 65122 Urobilinogen 0.2 DateTime(Free Text in Aprima) URINALYSIS NONAUTO W/O SCOPE 13656 Nitrite neg DateTime(Free Text in Aprima) URINALYSIS NONAUTO W/O SCOPE 59913 Leukocytes neg DateTime(Free Text in Aprima) URINALYSIS NONAUTO W/O SCOPE 00282 Specific [place] 1.005 DateTime(Free Text in Aprima) URINALYSIS NONAUTO W/O SCOPE 32980 PH 7.5 DateTime(Free Text in Aprima) URINALYSIS NONAUTO W/O SCOPE 74346 GLUCOSE DateTime(Free Text in Aprima) URINALYSIS NONAUTO W/O SCOPE 98067 Protein trace DateTime(Free Text in Aprima) URINALYSIS NONAUTO W/O SCOPE 79608 Blood 4+ DateTime(Free Text in Aprima) URINALYSIS NONAUTO W/O SCOPE 18467 Bilirubin DateTime(Free Text in Aprima) URINALYSIS NONAUTO W/O SCOPE 81936 Ketones DateTime(Free Text in Apr) URINALYSIS NONAUTO W/O SCOPE 93566 Urobilinogen DateTime(Free Text in Aprima) URINALYSIS NONAUTO W/O SCOPE 59416 Nitrite DateTime(Free Text in Octima) URINALYSIS NONAUTO W/O SCOPE 95504 Leukocytes trace DateTime(Free Text in ) Review [...] FLU VACC PRSV FREE INC ANTIG CPT-4: 05874 03/27/2017 PPPS, SUBSEQ VISIT CPT- 4: G0439 01/23/2017 URINALYSIS NONAUTO W/O SCOPE CPT-4: 06200 05/17/2016 ADMIN INFLUENZA VIRUS VAC CPT-4: G0008 03/24/2016 FLU VACC PRSV FREE INC ANTIG CPT-4: 26800 03/24/2016 ADMIN PNEUMOCOCCAL VACCINE SNOMED CT: 20044026 CPT-4: G0009 05/13/2015 PNEUMOCOCCAL VACC [address]: 38245764 CPT-4: 35343 05/13/2015 Pneumococcal Polysaccharide Vaccine, 23-Valent, Ad Assigned to/Mela Bledsoe CPT-4: 49827Calagur 07/11/2014 ADMIN PNEUMOCOCCAL VACCINE SNOMED CT: 53710566 CPT-4: G0009 07/11/2014 URINALYSIS NONAUTO W/O SCOPE CPT-4: 78711 05/14/2014 URINALYSIS NONAUTO W/O SCOPE CPT-4: 33098 05/06/2014 URINALYSIS NONAUTO W/O SCOPE CPT-4: 46403 04/29/2014 ADMIN INFLUENZA VIRUS VAC CPT-4: G0008 03/20/2014 FLU VAC NO PRSV 4 SCOTT 3 YRS+ Assigned to/Mela Bledsoe CPT-4: 43410Bzktnfw 03/20/2014 URINALYSIS NONAUTO W/O SCOPE CPT-4: 02321 07/29/2013 URINALYSIS NONAUTO W/O SCOPE CPT-4: 25963 07/01/2013 URINALYSIS NONAUTO W/O SCOPE CPT-4: 03452 06/20/2013 ROUTINE VENIPUNCTURE CPT- 4: 95971 05/15/2013 ROUTINE VENIPUNCTURE CPT- 4: 91513 04/23/2013 ADMIN INFLUENZA VIRUS VAC CPT-4: G0008 04/23/2013 FLULAVAL VACC, 3 YRS & >, IM CPT-4: Q2036 04/23/2013 ROUTINE VENIPUNCTURE CPT- 4: 79991 12/17/2012 ROUTINE VENIPUNCTURE CPT- 4: 75765 12/14/2012 ROUTINE VENIPUNCTURE CPT- 4: 58873 12/11/2012 PRESCRIP TRANSMIT VIA ERX SY CPT-4: G8553 12/11/2012 PRESCRIP TRANSMIT VIA ERX SY CPT-4: G8553 10/30/2012 URINALYSIS NONAUTO W/O SCOPE CPT-4: 68160 09/13/2012 ADMIN INFLUENZA VIRUS VAC CPT-4: G0008 04/18/2012 FLULAVAL VACC, 3 YRS & >, IM CPT-4: Q2036 04/18/2012 URINALYSIS NONAUTO W/O SCOPE CPT-4: 32333 03/13/2012 ROUTINE VENIPUNCTURE CPT- 4: 46694 03/08/2012 URINALYSIS NONAUTO W/O SCOPE CPT-4: 96241 02/13/2012 PRESCRIP TRANSMIT VIA ERX SY CPT-4: G8553 02/13/2012 ROCEPHIN, PER 250 MG CPT- 4: J0696 11/23/2011 ROUTINE VENIPUNCTURE CPT- 4: 79103 11/23/2011 URINALYSIS NONAUTO W/O SCOPE CPT-4: 23371 11/23/2011 PRESCRIP TRANSMIT VIA ERX SY CPT-4: G8553 11/23/2011 REMOVE IMPACTED EAR WAX UNI CPT-4: 31184 10/17/2011 PRESCRIP TRANSMIT VIA ERX SY CPT-4: G8553 10/03/2011 PRESCRIP TRANSMIT VIA ERX SY CPT-4: G8553 08/08/2011 URINALYSIS NONAUTO W/O SCOPE CPT-4: 48773 03/15/2011 URINALYSIS NONAUTO W/O SCOPE CPT-4: 05689 03/04/2011 THER/PROPH/DIAG INJ SC/IM CPT-4: 07231 03/04/2011 ROCEPHIN, PER 250 MG CPT- 4: J0696 03/04/2011 Vital Signs Date Vital 09/12/2018 Blood Pressure 1: 156/72 Code: 8480-6 BMI: 19.9 Code: 51623-2 Heart Rate 1: 68 bpm Height: 5' Temperature: 36.6 (C) / 97.8 (F) Weight: 102 lbs 08/14/2018 Blood Pressure 1: 136/68 Code: 8480-6 BMI: 21.1 Code: 77331-6 Heart Rate 1: 92 bpm Height: 5' Weight: 108 lbs 07/26/2018 Blood Pressure 1: 128/76 Code: 8480-6 BMI: 21.1 Code: 36350-1 Heart Rate 1: 88 bpm Height: 5' Weight: 108 lbs 06/04/2018 Blood Pressure 1: 124/72 Code: 8480-6 BMI: 21.3 Code: 37465-0 Heart Rate 1: 98 bpm Height: 5' Weight: 109 lbs 01/31/2018 Blood Pressure 1: 116/68 Code: 8480-6 BMI: 21.1 Code: 89685-8 Heart Rate 1: 89 bpm Height: 5' SpO2: 98% Weight: 108 lbs 01/17/2018 Blood Pressure 1: 134/74 Code: 8480-6 BMI: 21.3 Code: 27129-1 Heart Rate 1: 74 bpm Height: 5' SpO2: 96% Waist Measure (cm): 71 cm Weight: 109 lbs 12/14/2017 Blood Pressure 1: 150/78 Code: 8480-6 BMI: 21.5 Code: 51682-1 Heart Rate 1: 77 bpm Height: 5' SpO2: 98% Temperature: 36.7 (C) / 98.1 (F) Weight: 110 lbs 12/07/2017 Blood Pressure 1: 134/70 Code: 8480-6 Heart Rate 1: 76 bpm Height: SpO2: 98% Temperature: 36.8 (C) / 98.2 (F) Weight: 11/14/2017 Blood Pressure 1: 152/84 Code: 8480-6 BMI: 21.9 Code: 26770-0 Heart Rate 1: 95 bpm Height: 5' SpO2: 93% Weight: 112 lbs 03/27/2017 Blood Pressure 1: 122/70 Code: 8480-6 BMI: 21.3 Code: 89196-4 Heart Rate 1: 75 bpm Height: 5' Weight: 109 lbs 01/23/2017 BMI: 21.5 Code: 81593-3 Height: 5' Weight: 110 lbs 01/19/2017 Blood Pressure 1: 112/60 Code: 8480-6 BMI: 21.5 Code: 48370-4 Heart Rate 1: 54 bpm Height: 5' SpO2: 97% Weight: 110 lbs 11/29/2016 Blood Pressure 1: 126/68 Code: 8480-6 Height: 5' Weight: 11/23/2016 Blood Pressure 1: 130/72 Code: 8480-6 BMI: 21.9 Code: 06771-6 Heart Rate 1: 48 bpm Height: 5' SpO2: 97% Temperature: 36.7 (C) / 98.0 (F) Weight: 112 lbs 11/21/2016 Blood Pressure 1: 134/76 Code: 8480-6 BMI: 21.9 Code: 60296-7 Heart Rate 1: 41 bpm Height: 5' SpO2: 94% Temperature: 36.9 (C) / 98.4 (F) Weight: 112 lbs 11/08/2016 Blood Pressure 1: 126/74 Code: 8480-6 Heart Rate 1: 82 bpm Height: 5' SpO2: 94% Weight: 11/02/2016 Blood Pressure 1: 112/66 Code: 8480-6 Heart Rate 1: 72 bpm Height: 5' SpO2: 95% Weight: 10/27/2016 Blood Pressure 1: 130/64 Code: 8480-6 BMI: 21.7 Code: 85615-7 Heart Rate 1: 81 bpm Height: 5' SpO2: 96% Weight: 111 lbs 08/31/2016 Blood Pressure 1: 132/72 Code: 8480-6 BMI: 22.5 Code: 63655-8 Heart Rate 1: 66 bpm Height: 5' Weight: 115 lbs 07/27/2016 Blood Pressure 1: 166/74 Code: 8480-6 BMI: 23.2 Code: 54949-8 Heart Rate 1: 48 bpm Height: 5' SpO2: 90% Temperature: 36.8 (C) / 98.2 (F) Weight: 119 lbs 06/23/2016 Blood Pressure 1: 128/70 Code: 8480-6 BMI: 22.3 Code: 97054-7 Heart Rate 1: 75 bpm Height: 5' SpO2: 97% Weight: 114 lbs 06/09/2016 BMI: 22.7 Code: 55599-2 Heart Rate 1: 73 bpm Height: 5' SpO2: 97% Weight: 116 lbs 05/25/2016 Blood Pressure 1: 138/62 Code: 8480-6 BMI: 22.8 Code: 25064-1 Heart Rate 1: 76 bpm Height: 5' Weight: 117 lbs 05/17/2016 Blood Pressure 1: 116/70 Code: 8480-6 BMI: 22.8 Code: 75180-8 Heart Rate 1: 74 bpm Height: 5' SpO2: 94% Weight: 117 lbs 03/24/2016 Blood Pressure 1: 154/78 Code: 8480-6 BMI: 22.5 Code: 84124-6 Heart Rate 1: 78 bpm Height: 5' SpO2: 97% Weight: 115 lbs 02/02/2016 Blood Pressure 1: 132/70 Code: 8480-6 BMI: 22.3 Code: 72835-7 Heart Rate 1: 74 bpm Height: 5' SpO2: 94% Weight: 114 lbs 2016 Blood Pressure 1: 120/62 Code: 8480-6 BMI: 22.0 Code: 61947-3 Heart Rate 1: 68 bpm Height: 5' Weight: 112 lbs 8 oz 12/21/2015 Blood Pressure 1: 122/82 Code: 8480-6 BMI: 21.9 Code: 18577-7 Heart Rate 1: 83 bpm Height: 5' SpO2: 93% Temperature: 37.1 (C) / 98.7 (F) Weight: 112 lbs 11/03/2015 Blood Pressure 1: 122/72 Code: 8480-6 BMI: 22.4 Code: 90257-7 Heart Rate 1: 62 bpm Height: 5' Weight: 114 lbs 8 oz 10/19/2015 Blood Pressure 1: 138/62 Code: 8480-6 BMI: 21.1 Code: 53299-1 Heart Rate 1: 79 bpm Height: 5' Weight: 108 lbs 10/13/2015 Blood Pressure 1: 120/62 Code: 8480-6 BMI: 21.0 Code: 73831-7 Heart Rate 1: 76 bpm Height: 5' SpO2: 98% Weight: 108 lbs 09/29/2015 Blood Pressure 1: 130/70 Code: 8480-6 BMI: 20.2 Code: 74354-0 Heart Rate 1: 72 bpm Height: 5' Weight: 104 lbs 09/15/2015 Blood Pressure 1: 128/78 Code: 8480-6 BMI: 19.9 Code: 95270-2 Heart Rate 1: 72 bpm Height: 5' Weight: 102 lbs 8 oz 09/01/2015 Blood Pressure 1: 128/68 Code: 8480-6 BMI: 19.8 Code: 72835-3 Height: 5' Weight: 102 lbs 05/26/2015 Blood Pressure 1: 140/68 Code: 8480-6 BMI: 19.0 Code: 28096-3 Heart Rate 1: 70 bpm Height: 5' Weight: 98 lbs 05/21/2015 Blood Pressure 1: 140/78 Code: 8480-6 BMI: 19.2 Code: 96338-1 Heart Rate 1: 85 bpm Height: 5' SpO2: 95% Weight: 99 lbs 05/07/2015 Blood Pressure 1: 140/82 Code: 8480-6 BMI: 19.0 Code: 40989-6 Heart Rate 1: 76 bpm Height: 5' Weight: 98 lbs 03/23/2015 Blood Pressure 1: 142/60 Code: 8480-6 BMI: 18.6 Code: 02328-0 Heart Rate 1: 52 bpm Height: 5' Weight: 96 lbs 03/09/2015 Blood Pressure 1: 138/74 Code: 8480-6 BMI: 18.8 Code: 42282-0 Heart Rate 1: 60 bpm Height: 5' Weight: 97 lbs 10/30/2014 Blood Pressure 1: 112/82 Code: 8480-6 BMI: 19.0 Code: 10143-8 Heart Rate 1: 64 bpm Height: 5' Weight: 98 lbs 07/11/2014 Blood Pressure 1: 146/70 Code: 8480-6 BMI: 18.8 Code: 53685-3 Heart Rate 1: 68 bpm Height: 5' Weight: 97 lbs 05/20/2014 Blood Pressure 1: 142/76 Code: 8480-6 BMI: 18.6 Code: 51068-2 Heart Rate 1: 78 bpm Height: 5' Weight: 96 lbs 04/29/2014 Blood Pressure 1: 138/62 Code: 8480-6 BMI: 18.3 Code: 28946-2 Heart Rate 1: 80 bpm Height: 5' Weight: 94 lbs 8 oz 03/20/2014 Blood Pressure 1: 142/68 Code: 8480-6 BMI: 18.6 Code: 46184-3 Heart Rate 1: 96 bpm Height: 5' Weight: 96 lbs 03/05/2014 Blood Pressure 1: 122/72 Code: 8480-6 BMI: 18.8 Code: 57200-8 Heart Rate 1: 82 bpm Height: 5' SpO2: 97% Weight: 97 lbs 01/29/2014 Blood Pressure 1: 124/78 Code: 8480-6 BMI: 18.8 Code: 40602-7 Heart Rate 1: 60 bpm Height: 5' Weight: 97 lbs 01/14/2014 Blood Pressure 1: 120/58 Code: 8480-6 BMI: 19.2 Code: 25525-9 Heart Rate 1: 56 bpm Height: 5' Temperature: 36.9 (C) / 98.4 (F) Weight: 99 lbs 12/25/2013 Blood Pressure 1: 118/78 Code: 8480-6 BMI: 19.2 Code: 65575-2 Heart Rate 1: 68 bpm Height: 5' Weight: 99 lbs 11/27/2013 Blood Pressure 1: 102/68 Code: 8480-6 BMI: 19.4 Code: 08474-2 Heart Rate 1: 56 bpm Height: 5' Weight: 100 lbs 09/12/2013 Blood Pressure 1: 142/62 Code: 8480-6 BMI: 19.7 Code: 64606-6 Heart Rate 1: 72 bpm Height: 5'1" Weight: 104 lbs 08/15/2013 Blood Pressure 1: 152/92 Code: 8480-6 Heart Rate 1: 96 bpm Weight: 102 lbs 08/01/2013 Blood Pressure 1: 122/68 Code: 8480-6 BMI: 19.1 Code: 65448-3 Heart Rate 1: 68 bpm Height: 5'1" Weight: 101 lbs 07/01/2013 Blood Pressure 1: 130/72 Code: 8480-6 BMI: 19.5 Code: 11175-1 Heart Rate 1: 80 bpm Height: 5'1" Temperature: 36.1 (C) / 97.0 (F) Weight: 103 lbs 05/29/2013 Blood Pressure 1: 126/72 Code: 8480-6 BMI: 19.3 Code: 34982-2 Heart Rate 1: 80 bpm Height: 5'1" Weight: 102 lbs 05/15/2013 Blood Pressure 1: 156/74 Code: 8480-6 BMI: 19.3 Code: 47475-2 Heart Rate 1: 88 bpm Height: 5'1" Weight: 102 lbs 04/23/2013 Blood Pressure 1: 140/82 Code: 8480-6 BMI: 19.3 Code: 00351-1 Heart Rate 1: 72 bpm Height: 5'1" Weight: 102 lbs 03/21/2013 Blood Pressure 1: 142/74 Code: 8480-6 Heart Rate 1: 92 bpm Weight: 103 lbs 01/16/2013 Blood Pressure 1: 120/56 Code: 8480-6 BMI: 20.0 Code: 66894-2 Heart Rate 1: 72 bpm Height: 5'1" Weight: 106 lbs 12/19/2012 Blood Pressure 1: 118/66 Code: 8480-6 Heart Rate 1: 84 bpm Weight: 12/10/2012 Blood Pressure 1: 132/62 Code: 8480-6 Heart Rate 1: 64 bpm Weight: 103 lbs 10/30/2012 Blood Pressure 1: 122/66 Code: 8480-6 BMI: 19.9 Code: 86545-1 Heart Rate 1: 61 bpm Height: 5'1" [...] 1: 118/72 Code: 8480-6 BMI: 21.0 Code: 96428-1 Heart Rate 1: 66 bpm Height: 5'1" Respiratory Rate: 16 bpm Weight: 111 lbs 2012 Blood Pressure 1: 122/62 Code: 8480-6 Heart Rate 1: 68 bpm Weight: 110 lbs 12/01/2011 Blood Pressure 1: 150/60 Code: 8480-6 BMI: 20.8 Code: 13441-0 Heart Rate 1: 60 bpm Height: 5'1" Respiratory Rate: 16 bpm Weight: 110 lbs 11/23/2011 Blood Pressure 1: 170/68 Code: 8480-6 BMI: 21.1 Code: 57631-3 Heart Rate 1: 64 bpm Height: 5'1" Temperature: 36.3 (C) / 97.3 (F) Weight: 111 lbs 8 oz 10/17/2011 Blood Pressure 1: 148/62 Code: 8480-6 Heart Rate 1: 74 bpm 10/03/2011 Blood Pressure 1: 102/48 Code: 8480-6 BMI: 21.4 Code: 87359-1 Heart Rate 1: 76 bpm Height: 5'1" Respiratory Rate: 16 bpm Weight: 113 lbs 08/08/2011 Blood Pressure 1: 128/60 Code: 8480-6 Heart Rate 1: 80 bpm Respiratory Rate: 16 bpm Weight: 113 lbs 05/09/2011 Blood Pressure 1: 130/62 Code: 8480-6 BMI: 20.7 Code: 78633-5 Heart Rate 1: 64 bpm Height: 5'1" Respiratory Rate: 16 bpm Weight: 109 lbs 8 oz 03/29/2011 Blood Pressure 1: 120/62 Code: 8480-6 BMI: 20.2 Code: 68452-2 Heart Rate 1: 66 bpm Height: 5'1" Respiratory Rate: 12 bpm Weight: 107 lbs 03/15/2011 Blood Pressure 1: 120/64 Code: 8480-6 BMI: 19.8 Code: 32345-2 Heart Rate 1: 76 bpm Height: 5'1" [...] syndrome without gangrene[ICD10: I73.00] Katharine Bahena MD, [facility] CPT-4: 01073 09/12/2018 ([id number]) 56994 EST. PATIENT, LEVEL IV Diagnosis: Raynaud's syndrome without gangrene[ICD10: I73.00] Diagnosis: Pain in right toe(s)[ICD10: M79.674] Diagnosis: Chronic atrial fibrillation[ICD10: I48.2] Karma Bahena MD, [facility] CPT-4: 89779 08/14/2018 ([id number]) 66610 EST. PATIENT, LEVEL IV Diagnosis: Chronic atrial fibrillation[ICD10: I48.2] Diagnosis: Sebaceous cyst[ICD10: L72.3] Diagnosis: Raynaud's syndrome without gangrene[ICD10: I73.00] Karma Bahena MD, [facility] CPT-4: 07480 07/26/2018 ([id number]) 48924 EST. PATIENT, LEVEL IV Diagnosis: Essential (primary) hypertension[ICD10: I10] Diagnosis: Atrophy of thyroid (acquired)[ICD10: E03.4] Diagnosis: Gastro-esophageal reflux disease without esophagitis[ICD10: K21.9] Karma Bahena MD [facility] CPT-4: 99666 06/04/2018 ([id number]) 75085 EST. 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 PATIENT, LEVEL IV Diagnosis: Essential (primary) hypertension[ICD10: I10] Diagnosis: Chronic atrial fibrillation[ICD10: I48.2] Diagnosis: Allergic rhinitis due to pollen[ICD10: J30.1] Diagnosis: Cough[ICD10: R05] Karma Bahena MD, [facility] CPT-4: 23615 12/14/2017 09748 EST. PATIENT, LEVEL IV Diagnosis: Other allergic rhinitis[ICD10: J30.89] Katharine Bahena MD, [facility] CPT- 4: 17839 12/07/2017 ([id number]) 30304 EST. PATIENT, LEVEL IV Diagnosis: Essential (primary) hypertension[ICD10: I10] Diagnosis: Chronic atrial fibrillation[ICD10: I48.2] Diagnosis: Atrophy of thyroid (acquired)[ICD10: E03.4] Karma Bahena MD, [facility] CPT-4: 10730 11/14/2017 ([id number]) 90242 EST. PATIENT, LEVEL IV Diagnosis: Essential (primary) hypertension[ICD10: I10] Diagnosis: Localized edema[ICD10: R60.0] Diagnosis: Encounter for immunization[ICD10: Z23] Diagnosis: Age-related osteoporosis without current pathological fracture[ICD10: M81.0] Karma Bahena MD, [facility] CPT-4: 13374 03/27/2017 ([id number]) 96157 EST. PATIENT, LEVEL IV Diagnosis: Essential (primary) hypertension[ICD10: I10] Diagnosis: Chronic atrial fibrillation[ICD10: I48.2] Diagnosis: Dysphonia[ICD10: R49.0] Karma Bahena MD, [facility] CPT-4: 67393 01/19/2017 ([id number]) Miscellaneous no charge Diagnosis: Cough[ICD10: R05] Diagnosis: Acute upper respiratory infection, unspecified[ICD10: J06.9] Laura Bahena MD, [facility] CPT-4: 81588 11/29/2016 50409 EST. PATIENT, LEVEL III Diagnosis: Cough[ICD10: R05] Diagnosis: Acute laryngopharyngitis[ICD10: J06.0] Katharine Bahena MD, [facility] CPT- 4: 11520 11/23/2016 ([id number]) 28873 EST. PATIENT, LEVEL III Diagnosis: Acute laryngopharyngitis[ICD10: J06.0] Laura Bahena MD, [facility] CPT-4: 83263 11/21/2016 ([id number]) Miscellaneous no charge Diagnosis: Laceration without foreign body of right forearm, subsequent encounter[ICD10: S51.811D] Karma Bahena MD [facility] CPT-4: 29880 11/17/2016 ([id number]) Miscellaneous no charge Diagnosis: Laceration without foreign body of right forearm, subsequent encounter[ICD10: S51.811D] Karma Bahena MD [facility] CPT-4: 39377 11/14/2016 ([id number]) Miscellaneous no charge Diagnosis: Laceration without foreign body of right forearm, subsequent encounter[ICD10: S51.811D] Karma Bahena MD [facility] CPT-4: 05543 11/11/2016 ([id number]) Miscellaneous no charge Diagnosis: Laceration without foreign body of right forearm, subsequent encounter[ICD10: S51.811D] Karma Bahena MD [facility] CPT-4: 67232 11/10/2016 ([id number]) 06175 EST. PATIENT, LEVEL II Diagnosis: Laceration without foreign body of right forearm, subsequent encounter[ICD10: S51.811D] Karma Bahena MD [facility] CPT-4: 32829 11/08/2016 ([id number]) 19857 EST. PATIENT, LEVEL IV Diagnosis: Atrophy of thyroid (acquired)[ICD10: E03.4] Diagnosis: Chronic atrial fibrillation[ICD10: I48.2] Diagnosis: Laceration without foreign body of right forearm, subsequent encounter[ICD10: S51.811D] Karma Bahena MD, [facility] CPT-4: 71984 11/02/2016 ([id number]) 59236 EST. PATIENT, LEVEL III Diagnosis: Laceration without foreign body of right forearm, initial encounter[ICD10: S51.811A] Laura Bahena MD, [facility] CPT-4: 23529 10/27/2016 ([id number]) 89122 EST. PATIENT, LEVEL IV Diagnosis: Essential (primary) hypertension[ICD10: I10] Diagnosis: Chronic atrial fibrillation[ICD10: I48.2] Karma Bahena MD, [facility] CPT-4: 22131 08/31/2016 ([id number]) 06915 EST. PATIENT, LEVEL IV Diagnosis: Localized edema[ICD10: R60.0] Diagnosis: Essential (primary) hypertension[ICD10: I10] Diagnosis: Abdominal distension (gaseous)[ICD10: R14.0] Karma Bahena MD [facility] CPT-4: 68463 07/27/2016 ([id number]) 52119 EST. PATIENT, LEVEL IV Diagnosis: Essential (primary) hypertension[ICD10: I10] Diagnosis: Chronic atrial fibrillation[ICD10: I48.2] Diagnosis: Localized edema[ICD10: R60.0] Karma Bahena MD [facility] CPT-4: 41583 06/23/2016 ([id number]) 17202 EST. PATIENT, LEVEL III Diagnosis: Localized edema[ICD10: R60.0] Karma Bahena MD [facility] CPT-4: 06273 06/09/2016 ([id number]) 20434 EST. PATIENT, LEVEL III Diagnosis: Irritable bowel syndrome without diarrhea[ICD10: K58.9] Diagnosis: Pruritus ani[ICD10: L29.0] Karma Bahena MD [facility] CPT-4: 12986 05/25/2016 ([id number]) 29157 EST. PATIENT, LEVEL III Diagnosis: Abdominal distension (gaseous)[ICD10: R14.0] Diagnosis: Encounter for screening mammogram for malignant neoplasm of breast[ICD10: Z12.31] Karma Bahena MD [facility] CPT-4: 56027 05/17/2016 ([id number]) 74183 EST. PATIENT, LEVEL IV Diagnosis: Essential (primary) hypertension[ICD10: I10] Diagnosis: First degree hemorrhoids[ICD10: K64.0] Diagnosis: Encounter for immunization[ICD10: Z23] Karma Bahena MD, [facility] CPT-4: 91781 03/24/2016 ([id number]) 20960 EST. PATIENT, LEVEL III Diagnosis: Epidermal cyst[ICD10: L72.0] Diagnosis: Essential (primary) hypertension[ICD10: I10] Diagnosis: Chronic atrial fibrillation[ICD10: I48.2] Diagnosis: Other assisted (current) drug therapy[ICD10: Z79.899] Karma Bahena MD, [facility] CPT-4: 19673 02/02/2016 ([id number]) 64198 EST. PATIENT, LEVEL III Diagnosis: Acute anal fissure[ICD10: K60.0] Karma Bahena MD, [facility] CPT-4: 93981 2016 ([id number]) 93601 EST. PATIENT, LEVEL III Diagnosis: Allergic rhinitis due to pollen[ICD10: J30.1] Diagnosis: Acute upper respiratory infection, unspecified[ICD10: J06.9] Laura Bahena MD, [facility] CPT-4: 65693 12/21/2015 ([id number]) 91548 EST. PATIENT, LEVEL III Diagnosis: Essential (primary) hypertension[ICD10: I10] Diagnosis: Chronic atrial fibrillation[ICD10: I48.2] Karma Bahena MD, [facility] CPT-4: 48085 11/03/2015 ([id number]) Miscellaneous no charge Diagnosis: Impacted cerumen, right ear[ICD10: H61.21] Katharine Bahena MD, [facility] CPT-4: 15713 10/19/2015 53530 EST. PATIENT, LEVEL IV Diagnosis: Impacted cerumen, right ear[ICD10: H61.21] Diagnosis: Other allergic rhinitis[ICD10: J30.89] Katharine Bahena MD, [facility] CPT- 4: 24945 10/13/2015 ([id number]) 74620 EST. PATIENT, LEVEL IV Diagnosis: Essential (primary) hypertension[ICD10: I10] Diagnosis: Chronic atrial fibrillation[ICD10: I48.2] Diagnosis: Urge incontinence[ICD10: N39.41] Diagnosis: Age-related osteoporosis without current pathological fracture[ICD10: M81.0] Karma Bahena MD, [facility] CPT-4: 11749 09/29/2015 ([id number]) 28949 EST. PATIENT, LEVEL IV Diagnosis: Essential (primary) hypertension[ICD10: I10] Diagnosis: Chronic atrial fibrillation[ICD10: I48.2] Diagnosis: Irritable bowel syndrome without diarrhea[ICD10: K58.9] Diagnosis: Unspecified hemorrhoids[ICD10: K64.9] Karma Bahena MD, [facility] CPT-4: 27610 09/15/2015 ([id number]) 57987 EST. 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 PATIENT, LEVEL III Diagnosis: Hematuria, unspecified[ICD10: R31.9] Diagnosis: Other urethritis[ICD10: N34.2] Diagnosis: Other specified noninflammatory disorders of vagina[ICD10: N89.8] Karma Bahena MD, [facility] CPT-4: 18772 05/26/2015 94206 EST. PATIENT, LEVEL IV Diagnosis: Gout, unspecified[ICD10: M10.9] Karma Bahena MD, [facility] CPT-4: 08234 05/21/2015 ([id number]) 26364 EST. PATIENT, LEVEL IV Diagnosis: Chronic atrial fibrillation[ICD10: I48.2] Diagnosis: Irritable bowel syndrome without diarrhea[ICD10: K58.9] Diagnosis: Cystocele, unspecified[ICD10: N81.10] Diagnosis: Urge incontinence[ICD10: N39.41] Diagnosis: Fecal smearing[ICD10: R15.1] Diagnosis: Hypothyroidism, unspecified[ICD10: E03.9] Karma Bahena MD, [facility] CPT-4: 52564 05/07/2015 ([id number]) 11815 EST. PATIENT, LEVEL III Diagnosis: Atrial fibrillation[ICD9: 427.31] Diagnosis: Bloating[ICD9: 787.3] Karma Bahena MD, [facility] CPT-4: 28745 03/23/2015 ([id number]) 86323 EST. PATIENT, LEVEL IV Diagnosis: Abdominal pain[ICD9: 789.00] Diagnosis: Atrial fibrillation[ICD9: 427.31] Diagnosis: ENCNTR LONG-ANTICOAG USE[ICD9: V58.61] Karma Bahena MD [facility] CPT-4: 65716 03/09/2015 ([id number]) 06025 EST. PATIENT, LEVEL IV Diagnosis: HEMATURIA NOS[ICD9: 599.70] Diagnosis: Atrial fibrillation[ICD9: 427.31] Diagnosis: HYPOTHYROIDISM[ICD9: 244.9] Karma Bahena MD [facility] CPT-4: 46491 10/30/2014 ([id number]) 74290 EST. PATIENT, LEVEL IV Diagnosis: Atrial fibrillation[ICD9: 427.31] Diagnosis: ALLERGIC RHINITIS[ICD9: 477.9] Diagnosis: Need for pneumococcal vaccine[ICD9: V03.82] Diagnosis: Osteoarthritis[ICD9: 715.90] Diagnosis: Osteoporosis[ICD9: 733.00] Karma Bahena MD [facility] CPT-4: 52467 07/11/2014 ([id number]) 19518 EST. PATIENT, LEVEL III Diagnosis: Urge incontinence[ICD9: 788.31] Diagnosis: Dysuria[ICD9: 788.1] Karma Bahena MD [facility] CPT-4: 62181 05/20/2014 ([id number]) 68816 EST. PATIENT, LEVEL IV Diagnosis: Atrial fibrillation[ICD9: 427.31] Diagnosis: Hematuria[ICD9: 599.70] Diagnosis: Dysuria[ICD9: 788.1] Diagnosis: ESSENTIAL HYPERTENSION[ICD9: 401.9] Karma Bahena MD [facility] CPT- 4: 54825 04/29/2014 ([id number]) 26966 EST. PATIENT, LEVEL IV Diagnosis: ESSENTIAL HYPERTENSION[ICD9: 401.9] Diagnosis: ALLERGIC RHINITIS[ICD9: 477.9] Karma Bahena MD [facility] CPT-4: 64734 03/20/2014 ([id number]) 91418 EST. PATIENT, LEVEL IV Diagnosis: ESSENTIAL HYPERTENSION[ICD9: 401.9] Diagnosis: ATRIAL FIBRILLATION[ICD9: 427.31] Diagnosis: Irritable bowel[ICD9: 564.1] Karma Bahena MD [facility] CPT-4: 41150 03/05/2014 ([id number]) 88773 EST. PATIENT, LEVEL IV Diagnosis: Esophageal reflux[ICD9: 530.81] Diagnosis: DIARRHEA[ICD9: 787.91] Diagnosis: ABDOM PAIN NOS SITE[ICD9: 789.00] Karma Bahena MD [facility] CPT- 4: 95614 01/29/2014 ([id number]) 26480 EST. PATIENT, LEVEL III Diagnosis: Irritable bowel[ICD9: 564.1] Diagnosis: DIARRHEA[ICD9: 787.91] Laura Bahena MD [facility] CPT-4: 78542 01/14/2014 ([id number]) 58362 EST. PATIENT, LEVEL IV Diagnosis: ESSENTIAL HYPERTENSION[ICD9: 401.9] Diagnosis: ATRIAL FIBRILLATION[ICD9: 427.31] Diagnosis: URGE INCONTINENCE[ICD9: 788.31] Diagnosis: MALAISE AND FATIGUE[ICD9: 780.79] Diagnosis: Dyspnea[ICD9: 786.09] Karma Bahena MD [facility] CPT-4: 16041 12/25/2013 ([id number]) 16732 EST. PATIENT, LEVEL IV Diagnosis: ESSENTIAL HYPERTENSION[SNOMED: 04561734] Diagnosis: ATRIAL FIBRILLATION[ICD9: 427.31] Diagnosis: Abdominal pain[ICD9: 789.00] Diagnosis: ESOPHAGEAL REFLUX[ICD9: 530.81] Karma Bahena MD [facility] CPT-4: 88929 11/27/2013 ([id number]) 26608 EST. PATIENT, LEVEL IV Diagnosis: ESSENTIAL HYPERTENSION[SNOMED: 88949506] Diagnosis: ATRIAL FIBRILLATION[ICD9: 427.31] Diagnosis: Chronic osteoarthritis[ICD9: 715.90] Karma Bahena MD [facility] CPT- 4: 95668 09/12/2013 ([id number]) 96969 EST. PATIENT, LEVEL III Diagnosis: ESSENTIAL HYPERTENSION[SNOMED: 15829004] Diagnosis: Bruising[ICD9: 924.9] Diagnosis: ENCNTR LONG-RX USE NEC[ICD9: V58.69] Karma Bahena MD [facility] CPT- 4: 83622 08/15/2013 ([id number]) 33428 EST. PATIENT, LEVEL IV Diagnosis: ESSENTIAL HYPERTENSION[SNOMED: 44392973] Diagnosis: Hematuria[ICD9: 599.70] Diagnosis: Dysuria[ICD9: 788.1] Karma Bahena MD [facility] CPT-4: 94955 08/01/2013 ([id number]) 39780 EST. PATIENT, LEVEL III Diagnosis: UTI[ICD9: 599.0] Diagnosis: Hematuria[ICD9: 599.70] Laura Bahena MD [facility] CPT-4: 70325 07/01/2013 ([id number]) 43096 EST. PATIENT, LEVEL III Diagnosis: ATRIAL FIBRILLATION[ICD9: 427.31] Diagnosis: ESSENTIAL HYPERTENSION[SNOMED: 14875204] Karma Bahena MD [facility] CPT-4: 26787 05/29/2013 ([id number]) 88699 EST. PATIENT, LEVEL IV Diagnosis: Atrial fibrillation[ICD9: 427.31] Diagnosis: Encounter for monitoring digoxin therapy[ICD9: V58.83] Diagnosis: ESSENTIAL HYPERTENSION[SNOMED: 44426556] Karma Bahena MD [facility] CPT-4: 97107 05/15/2013 ([id number]) 73604 EST. PATIENT, LEVEL IV Diagnosis: ESSENTIAL HYPERTENSION[SNOMED: 00457203] Diagnosis: ATRIAL FIBRILLATION[ICD9: 427.31] Diagnosis: PALPITATIONS[ICD9: 785.1] Diagnosis: Dizziness and giddiness[ICD9: 780.4] Karma Bahena MD [facility] CPT- 4: 84795 04/23/2013 ([id number]) 76160 EST. PATIENT, LEVEL III Diagnosis: OTHER CONSTIPATION[ICD9: 564.09] Diagnosis: ABDOM PAIN NOS SITE[ICD9: 789.00] Laura Bahena MD [facility] CPT- 4: 18731 03/21/2013 ([id number]) 87865 EST. PATIENT, LEVEL IV Diagnosis: ESSENTIAL HYPERTENSION[SNOMED: 33225621] Diagnosis: Atrial fibrillation[ICD9: 427.31] Karma Bahena MD [facility] CPT- 4: 78126 01/16/2013 ([id number]) Miscellaneous no charge Diagnosis: CELLULITIS OF HAND[ICD9: 682.4] Karma Bahena MD [facility] CPT-4: 99773 12/19/2012 ([id number]) Miscellaneous no charge Diagnosis: ENCOUNTER FOR THERAPEUTIC DRUG MONITORING[ICD9: V58.83] Diagnosis: CELLULITIS OF HAND[ICD9: 682.4] Karma Bahena MD [facility] CPT-4: 37195 12/14/2012 Miscellaneous no charge Diagnosis: CELLULITIS OF HAND[ICD9: 682.4] PARVEEN Freitas MD CPT-4: 85189 12/12/2012 88921 EST. PATIENT, LEVEL II Diagnosis: CELLULITIS OF HAND[ICD9: 682.4] Diagnosis: ENCNTR LONG-RX USE NEC[ICD9: V58.69] Diagnosis: LONG-TERM USE ANTICOAGUL[ICD9: V58.61] Karma Bahena MD [facility] CPT-4: 69785 12/11/2012 ([id number]) 94828 EST. PATIENT, LEVEL III Diagnosis: CELLULITIS OF HAND[ICD9: 682.4] PARVEEN Freitas MD CPT-4: 95048 12/10/2012 ([id number]) 92363 EST. PATIENT, LEVEL IV Diagnosis: Elevated digoxin level[ICD9: 796.0] Diagnosis: ATRIAL FIBRILLATION[ICD9: 427.31] Diagnosis: Inflammatory arthritis[ICD9: 714.9] Karma Bahena MD [facility] CPT- 4: 03323 10/30/2012 ([id number]) 26310 EST. PATIENT, LEVEL IV Diagnosis: Atrial fibrillation[ICD9: 427.31] Diagnosis: Anticoagulant long-term use[ICD9: V58.61] Diagnosis: ESSENTIAL HYPERTENSION[SNOMED: 52069044] [facility] CPT-4: 60106 08/08/2012 ([id number]) 84718 EST. PATIENT, LEVEL IV Diagnosis: ABDOM PAIN NOS SITE[ICD9: 789.00] Diagnosis: Constipation - functional[ICD9: 564.09] Diagnosis: EDEMA[ICD9: 782.3] Diagnosis: ATRIAL FIBRILLATION[ICD9: 427.31] [facility] CPT- 4: 98284 07/11/2012 ([id number]) 67151 EST. PATIENT, LEVEL III Diagnosis: Cystocele[ICD9: 618.01] Diagnosis: Rectocele[ICD9: 618.04] Karma Bahena MD [facility] CPT-4: 48412 05/08/2012 ([id number]) 35833 EST. 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 PATIENT, LEVEL IV Diagnosis: ATRIAL FIBRILLATION[ICD9: 427.31] Diagnosis: URGE INCONTINENCE[ICD9: 788.31] Diagnosis: MALAISE AND FATIGUE[ICD9: 780.79] Diagnosis: Dyspnea[ICD9: 786.09] Karma Bahena MD [facility] CPT-4: 59634 02/20/2012 26183 EST. PATIENT, LEVEL IV Diagnosis: Hematuria[ICD9: 599.70] Diagnosis: Vaginal yeast infection[ICD9: 112.1] Diagnosis: ATRIAL FIBRILLATION[ICD9: 427.31] Laura Bahena MD [facility] CPT- 4: 99875 02/13/2012 ([id number]) 60334 EST. PATIENT, LEVEL IV Diagnosis: Atrial fibrillation[ICD9: 427.31] Diagnosis: Anticoagulation goal of INR 2 to 3[ICD9: V58.83] Diagnosis: Urinary incontinence, urge[ICD9: 788.31] Diagnosis: ESSENTIAL HYPERTENSION[SNOMED: 03957559] Karma Bahena MD [facility] CPT-4: 28059 02/01/2012 ([id number]) 02246 EST. PATIENT, LEVEL IV Diagnosis: Atrial fibrillation[ICD9: 427.31] Diagnosis: Anticoagulant long-term use[ICD9: V58.61] Diagnosis: ESSENTIAL HYPERTENSION[SNOMED: 04843590] Karma Bahena MD [facility] CPT-4: 77649 2012 [id number] EST. PATIENT, LEVEL IV Diagnosis: UTI[ICD9: 599.0] Diagnosis: ESSENTIAL HYPERTENSION[SNOMED: 64331737] Diagnosis: MALAISE AND FATIGUE[ICD9: 780.79] Diagnosis: Esophageal reflux[ICD9: 530.81] Karma Bahena MD, [facility] CPT-4: 69064 12/01/2011 ([id number]) 88106 EST. PATIENT, LEVEL IV Diagnosis: UTI (urinary tract infection)[ICD9: 599.0] Diagnosis: ESSENTIAL HYPERTENSION[SNOMED: 51216287] Diagnosis: URGE INCONTINENCE[ICD9: 788.31] Karma Bahena MD [facility] CPT-4: 63499 11/23/2011 ([id number]) 26759 EST. PATIENT, LEVEL IV Diagnosis: ESSENTIAL HYPERTENSION[SNOMED: 12444729] Diagnosis: IMPACTED CERUMEN[ICD9: 380.4] Diagnosis: MALAISE AND FATIGUE[ICD9: 780.79] Diagnosis: EDEMA[ICD9: 782.3] Karma Bahena MD, [facility] CPT-4: 47454 10/03/2011 [id number] EST. PATIENT, LEVEL IV Diagnosis: ESSENTIAL HYPERTENSION[SNOMED: 56015895] Diagnosis: Generalized osteoarthritis[ICD9: 715.09] Diagnosis: OSTEOPOROSIS[ICD9: 733.00] Karma Bahena MD, [facility] CPT-4: 06365 08/08/2011 [id number] EST. PATIENT, LEVEL IV Diagnosis: Muscle cramp[ICD9: 729.82] Diagnosis: Torticollis[ICD9: 723.5] Diagnosis: Rash[ICD9: 782.1] Karma Bahena MD, [facility] CPT-4: 67344 05/09/2011 [id number] EST. PATIENT, LEVEL IV Diagnosis: Leg cramps, sleep related[ICD9: 327.52] Diagnosis: Underweight[ICD9: 783.22] Karma Bahena MD, [facility] CPT-4: [id number] 03/29/2011 [id number] EST. PATIENT, LEVEL IV Diagnosis: UTI[ICD9: 599.0] Diagnosis: Urge incontinence[ICD9: 788.31] Diagnosis: Loss of weight[ICD9: 783.21] Diagnosis: Palpitations[ICD9: 785.1] Diagnosis: Peripheral neuropathy, idiopathic[ICD9: 356.9] Karma Bahena MD, [facility] CPT-4: 93033 03/15/2011 Plan of Care Planned Activity Notes [...] or concerns. 09/12/2018 Appointment: Katharine Dai WPtel: [address] [place], [place] [id number] (15 min) Moderate 09/12/2018 Patient Education: Patient Medication Summary Completed 09/12/2018 Appointment: Karma Bahena WPtel: [address] [place], [place] [phone] (15 min) Moderate 08/16/2018 Visit Plan: I [...] surgically removed. 08/14/2018 Appointment: Karma Bahena WPtel: [address] [place], [place] [phone] (15 min) Moderate 08/14/2018 Patient Education: Patient [...] removed. 07/26/2018 Appointment: Karma Bahena WPtel: [facility] (15 min) Moderate 07/26/2018 Patient Education: Patient [...] are not improving. 06/04/2018 Appointment: JosefKarma WPtel: [phone] [facility] (15 min) Moderate 06/04/2018 Patient Education: Patient Medication Summary Completed 06/04/2018 Appointment: Karma Bahena WPtel: [phone] [facility] (15 min) Moderate 03/14/2018 Visit Plan: [...] of control. 01/31/2018 Appointment: Katharine Dai WPtel: [phone] [facility] [facility] - Annual Wellness Visit 01/31/2018 [...] spray. 12/14/2017 Appointment: Karma Bahena WPtel: [facility]6 [facility]6[address] (15 min) Moderate 12/14/2017 Patient Education: Patient [...] spray. 12/07/2017 Appointment: Katharine Dai WPtel: [facility]3 [facility] (15 min) Moderate 12/07/2017 Patient Education: [...] q 3 months or q 6 m [facility] based on previous levels of control. 11/14/2017 Appointment: Karma Bahena WPtel: [phone] [facility] (15 min) Moderate 11/14/2017 Patient Education: [...] today. 03/27/2017 Appointment: Kar[facility] Bahena [facility]Ptel[phone] (15 min) Moderate 03/27/2017 Patient Education: Patient [...] surrogate. 01/23/2017 Appointment: Katharine Dai WPtel: [facility]6 [facility] [facility] - Annual Wellness Visit 01/23/2017 [...] becoming uncontrolled. 01/19/2017 Appointment: Karma Bahena WPtel: [address] [place], [place] [phone] (15 min) Moderate 01/19/2017 Patient Education: Patient Medication Summary Completed 01/19/2017 Care Plan: Referral Order SNOMED-CT : [id number] Pending 01/19/2017 Appointment: Karma Bahena WPtel: [address] [place], [place] [phone] (15 min) Moderate 01/04/2017 Appointment: Karma Bahena WPtel: [address] [place], [place] [phone] (15 min) Moderate 12/28/2016 Visit Plan: ITD-tjlib-ziv zpack-call if symptoms do not resolve or if any worse. Patient verbalized understanding of plan. 11/29/2016 Appointment: Laura Colin WPtel: [facility]0 [phone] (15 min) Moderate 11/29/2016 Patient Education: Patient [...] fever/discomfort. 11/21/2016 Appointment: Laura Colin WPtel: [phone] [phone] (15 min) Moderate 11/21/2016 Patient Education: Patient [...] symptoms. 11/08/2016 Appointment: Karma Bahena WPtel[phone] (10 min) Simple 11/08/2016 Patient Education: Patient [...] etc. 11/02/2016 Appointment: Karma Bahena WPtel: [phone] [facility] (15 min) Moderate 11/02/2016 Appointment: Nurse Visit 11/02/2016 Patient Education: Patient Medication Summary Completed 11/02/2016 Appointment: Nurse Visit 10/31/2016 Visit Plan: Laceration-right forearm- Pt was instructed to keep the wound clean, cleanse with sterile saline, use bactroban ointment, call if redness, pustular drainage, or any other acute concerns. Follow up Monday for dressing changes. 10/27/2016 Appointment: Laura Colin WPtel: [phone] [phone] [place] (30 min) Complex 10/27/2016 Patient Education: [...] symptoms. 08/31/2016 Appointment: Karma Bahena WPtel: [phone] (15 min) Moderate 08/31/2016 Patient Education: Patient [...] your swelling. 07/27/2016 Appointment: Karma Bahena WPtel: [address] [place], [place] [address] (15 min) Moderate 07/27/2016 Patient Education: Patient [...] of lasix 06/23/2016 Appointment: Karma Bahena WPtel: [address] [place], [place] [phone] (15 min) Moderate 06/23/2016 Patient Education: Patient Medication Summary Completed 06/23/2016 Patient Education: Hypertension Completed 06/23/2016 Visit Plan: Edema - with Dyspnea - RX for laxis and compression socks - pt to call if not improving. 06/09/2016 Appointment: Karma Bahena WPtel: [facility] [place] (15 min) Moderate 06/09/2016 Patient Education: Patient Medication Summary Completed 06/09/2016 Visit Plan: Abdominal pain and rectal itching - recommended pt to use betamethasone on vaginal/rectal region, monitor symptoms call if not improving. Continue with beano and simethicone 05/25/2016 Appointment: Karma Bahena WPtel: [facility]9 [facility] [place] (15 min) Moderate 05/25/2016 Patient Education: Patient Medication Summary Completed 05/25/2016 Care Plan: [facility]AMMOGRAPHY[facility]ITAL [facility] 04039-2 Pending 05/20/2016 Visit Plan: Abdominal distension - use simethicone four times daily - after meals - if it does not help - in the next two weeks - call the office and we will do a ct scan of the abdomen and pelvis 05/17/2016 Appointment: Karma Bahena WPtel: [phone] [facility] (15 min) Moderate 05/17/2016 Patient Education: [...] steroid ointment 03/24/2016 Appointment: Karma Bahena WPtel: [phone] (30 min) Complex 03/24/2016 Patient Education: Patient [...] Appointment: Laura Colin WPtel: [phone] [phone] (30 min) Complex 12/21/2015 Patient Education: [...] uncontrolled. 11/03/2015 Appointment: Karma Bahena WPtel: [phone] [facility] (15 min) Moderate 11/03/2015 Patient Education: [...] had left kidney and ureter removed in [place]-doing well 09/01/2015 Appointment: (30 min) Complex 09/01/2015 Patient Education: Patient Medication Summary Completed 09/01/2015 Patient Education: Hypertension Completed 09/01/2015 Appointment: Karma Bahena WPtel: [phone] [facility] (15 min) Moderate 07/13/2015 Visit Plan: Hematuria/Urethritis [...] 05/13/2015 Care Plan: Referral Order SNOMED-CT : [id number] Ordered 05/08/2015 Visit Plan: Atrial Fibrillation - [...] Dr. Collins. 05/07/2015 Appointment: Karma Bahena WPtel: [phone] [facility] (15 min) Moderate 05/07/2015 Patient Education: Patient [...] uncontrolled. 10/30/2014 Appointment: Karma Bahena WPtel: [facility] Follow up 10/30/2014 Patient Education: Patient Medication Summary Completed 10/30/2014 Appointment: Karma Bahena WPtel: [phone] [facility] Follow up 07/22/2014 Visit Plan: Atrial Fibrillation [...] hospital. 07/11/2014 Appointment: Karma Bahena WPtel: [facility]2 [facility] Sick 07/11/2014 Patient Education: Patient Medication Summary Completed 07/11/2014 Appointment: Karma Bahena WPtel: [address] [place], [place] [phone] Follow up 07/07/2014 Visit Plan: Urinary incontinence and recurrent UTI's - doctor will refer to Dr. Joel Collins - for nonsurgical intervention for potential electrical stimulation/training of pelvic floor muscles - for strengthening - can start on the treatment when you get back from [place] - will also ask him about doing a cystoscopy to look into bladder to see if there is any bladder irritation. keep using the Premarin - use about 25Cent size of cream onto finger to apply to urethra and do this three times weekly. 05/20/2014 Appointment: Karma Bahena WPtel: [address] [place], [place] [phone] Follow up 05/20/2014 Patient Education: Patient Medication Summary Completed 05/20/2014 Appointment: Karma Bahena WPtel: [address] [place], [place] [address] [place] Lab Draw 05/14/2014 Patient Education: Patient [...] recommended vesicare. 04/29/2014 Appointment: Karma Bahena WPtel: [address] [place] [address] Follow up 04/29/2014 Patient Education: Patient Medication [...] spray. 03/20/2014 Appointment: Karma Bahena WPtel: [facility]1 [facility] Sick 03/20/2014 Patient Education: Patient Medication [...] becoming uncontrolled. 03/05/2014 Appointment: Karma Bahena WPtel: [address] [place], [place] [phone] Follow up 03/05/2014 Patient Education: Patient Medication [...] report. 01/29/2014 Appointment: Karma Bahena WPtel: [facility]5 [facility] Follow up 01/29/2014 Patient Education: Patient [...] exposure,and dyspnea on exertion - will ask [place] Patient do an overnight oxygen study on [place] as she has cardiac history, weight loss, and nocturnal hypoxemia may be a part of her weight loss and fatigue. 12/25/2013 Appointment: Karma Bahena WPtel: [phone] [facility] Follow up 12/25/2013 Patient Education: Patient [...] daily. 11/27/2013 Appointment: Karma Bahena WPtel: [phone] [facility] Follow up 11/27/2013 Patient Education: Patient Medication [...] heart rate. Osteoarthritis - send pt to [facility] physical therapy for gereral osteoarhtritis program for strengthening and pain reduction. Hypertension - well controlled - continue with current medications, continue with no added salt diet. Pt has been encouraged to exercise daily. The pt has been advised to call the office if there are any acute concerns about change in blood pressure readings at home. 09/12/2013 Appointment: Karma Bahena WPtel: [phone] Follow up 09/12/2013 Patient Education: Patient Medication Summary Completed 09/12/2013 Patient Education: Hypertension Completed 09/12/2013 Appointment: Karma Bahena WPtel: [phone] Follow up 08/21/2013 Visit Plan: Hypertension - [...] PT/INR 08/15/2013 Appointment: Karma Bahena WPtel: [phone] [facility] Follow up 08/15/2013 Patient Education: Patient Medication [...] of urethra. 08/01/2013 Appointment: Karma Bahena: [facility] [place] Follow up 08/01/2013 Patient Education: Patient Medication Summary Completed 08/01/2013 Patient Education: Hypertension Completed 08/01/2013 Appointment: [facility]el[phone] [place] Lab Draw 07/29/2013 Patient Education: Patient Medication Summary Completed 07/29/2013 Visit Plan: Osteoporosis-prolia on june 25-patient to let Dr Hansen know 07/01/2013 Appointment: Laura Colin WPtel: [facility]5 [phone] [place] Follow up 07/01/2013 Appointment: Karma Bahena WPtel: [facility]5 [facility] [place] Follow up 07/01/2013 Patient Education: Patient Medication Summary Completed 07/01/2013 Appointment: Karma Bahena WPtel: [facility] [place] Follow up 06/25/2013 Appointment: Karma Bahena WPtel: [address] [place] [address] [place] Lab Draw 06/20/2013 Patient Education: Patient Medication Summary Completed 06/20/2013 Appointment: Karma Bahena WPtel: [facility] [place] Lab Draw 06/19/2013 Visit Plan: Atrial [...] home. 05/29/2013 Appointment: Karma Bahena WPtel: [facility]5 [facility] [place] Follow up 05/29/2013 Patient Education: [...] at home. 05/15/2013 Appointment: Karma Bahena WPtel: [address] [place] [address] Other 05/15/2013 Patient Education: Patient Medication Summary [...] shot today. 04/23/2013 Appointment: Karma Bahena WPtel: [address] [place], [place] [phone] Other 04/23/2013 Patient Education: Patient Medication Summary [...] regimen. 03/21/2013 Appointment: Laura Colin WPtel: [phone] Follow up 03/21/2013 Patient Education: Patient Medication [...] becoming uncontrolled. 01/16/2013 Appointment: Karma Bahena WPtel: [address] [place], [place] [phone] Follow up 01/16/2013 Patient Education: Patient Medication Summary Completed 01/16/2013 Patient Education: Hypertension Completed 01/16/2013 Visit Plan: Wound Instructions - Pt was instruced to keep the wound clean, wash with antibacterial soap, use triple antibiotic ointment, call if redness, pustular drainage, or any other acute conerns. 12/19/2012 Appointment: Karma Bahena WPtel: [address] [place], [place] [phone] Other 12/19/2012 Patient Education: Patient Medication Summary Completed 12/19/2012 Patient Education: Patient Medication Summary Completed 12/17/2012 Visit Plan: Cellulitis - improved- monitor symptoms - need to check handon Monday morning. 12/14/2012 Appointment: Karma Bahena WPtel: [address] [place], [place] [phone] Follow up 12/14/2012 Patient Education: Patient Medication Summary Completed 12/14/2012 Visit Plan: Cellulitis - improved- monitor symptoms - need to check handon Monday morning. 12/12/2012 Appointment: Karma Bahena WPtel: [facility]5 [facility] Work-in 12/12/2012 Patient Education: Patient Medication [...] discharge. 12/10/2012 Appointment: Karma Bahena WPtel: [phone] [place] Other 12/10/2012 Patient Education: Patient Medication [...] uncontrolled. 10/30/2012 Appointment: Karma Bahena WPtel: [phone] [facility] Follow up 10/30/2012 Patient Education: Patient Medication Summary Completed 10/30/2012 Appointment: Laura Colin WPtel: [phone] [phone] [place] Lab Draw 09/13/2012 Patient Education: Patient [...] and 3.5. 08/08/2012 Appointment: Karma Bahenatel: [phone] [facility] Other 08/08/2012 Patient Education: Patient Medication Summary [...] regimen. 07/11/2012 Appointment: Karma Bahena WPtel: [phone] swelling, leg edema Other 07/11/2012 Patient Education: [...] vaginally. 05/08/2012 Appointment: Karma Bahena WPtel: [phone] [facility] Follow up 05/08/2012 Patient Education: Patient Medication [...] hospitalization. 04/18/2012 Appointment: Karma Bahena WPtel: [phone] [facility] [place] Follow up 04/18/2012 Patient Education: Patient Medication Summary Completed 04/18/2012 Patient Education: High Blood Pressure: Essential Hypertension Completed 04/18/2012 Appointment: Karma Bahena WPtel: 101 [facility] [place] Follow up 04/09/2012 Appointment: Karma Bahena WPtel: 101 [facility] [place] Lab Draw 04/04/2012 Appointment: [facility]Ptel: [phone] [place] Lab Draw 03/19/2012 Visit Plan: [...] Completed 03/13/2012 Appointment: Karma Bahena WPtel: [phone] [facility] [place] Lab Draw 03/08/2012 Patient Education: Patient [...] rehab. 02/20/2012 Appointment: Karma Bahena WPtel: [facility] [place] Other 02/20/2012 Patient Education: Patient Medication [...] uncontrolled. 02/13/2012 Appointment: Laura Colin WPtel: [phone] [place] Other 02/13/2012 Patient Education: Patient Medication Summary Completed 02/13/2012 Appointment: Karma Bahena WPtel: [phone] [facility] [place] Lab Draw 02/07/2012 Visit Plan: Atrial [...] medication. 02/01/2012 Appointment: Karma Bahena WPtel: [phone] Other 02/01/2012 Patient Education: Patient Medication Summary Completed 02/01/2012 Patient Education: High Blood Pressure: Essential Hypertension Completed 02/01/2012 Appointment: Karma Bahena WPtel: [phone] [facility] [place] Lab Draw 01/17/2012 Visit Plan: Atrial [...] home. 2012 Appointment: Karma Bahena WPtel: [facility]5 [address] Other 2012 Patient Education: Patient Medication Summary Completed 2012 Patient Education: High Blood Pressure: Essential Hypertension Completed 2012 Appointment: Karma Bahena WPtel: [facility]5 [address] Follow up 12/20/2011 Visit Plan: Dicyclomine [...] room. 12/01/2011 Appointment: Karma Bahena WPtel: [facility]5 [facility]66[facility] Other 12/01/2011 Patient Education: Patient Medication [...] infection resolves. 11/23/2011 Appointment: Laura Colin WPtel: [address] [place] [address] [place] Other 11/23/2011 Patient Education: Patient Medication Summary Completed 11/23/2011 Patient Education: High Blood Pressure: Essential Hypertension Completed 11/23/2011 Visit Plan: Cerumen Impaction - The impacted cerumen was removed with the use of either ear currette alone or in combination with ear curette and water pick. The patient tolerated the procedure without incident and had improvement in hearing 10/17/2011 Appointment: Laura Colin WPtel: [address] [place] [address] [place] Other 10/17/2011 Patient Education: Patient Medication [...] by irrigation. 10/03/2011 Appointment: Karma Bahena WPtel: [address] [place] [address] Other 10/03/2011 Patient Education: Patient Medication Summary [...] evidence. 08/08/2011 Appointment: Karma Bahena WPtel: [facility] [address] Other 08/08/2011 Patient Education: Patient Medication Summary Completed 08/08/2011 Patient Education: High Blood Pressure: Essential Hypertension Completed 08/08/2011 Visit Plan: Muscle cramps - the cramps are a little better, continue with the Diltiazem and it is okay to use the over the counter supplement with quinine - but use it sparingly. For the rash, use the prescripti on the sanitation worker cleaning equipment prescribed for the itching , call if the rash is not improved. Torticollis - continue with physical therapy, call if the neck muscles do not continue to show improvement. 05/09/2011 Appointment: Karma Bahena WPtel: [facility]3 [facility]6[address] Other 05/09/2011 Patient Education: Patient Medication [...] aerobics. 03/29/2011 Appointment: Karma Bahena WPtel: [phone] [facility] [place] Other 03/29/2011 Patient Education: Patient Medication Summary Completed 03/29/2011 Appointment: Karma Bahena WPtel: [phone] [facility] Other 03/17/2011 Visit Plan: UTI - UA negative. Urge incontinence- restart on the vesicare- at 5 mg. Continue to avoid caffinated foods/fluids. Peripheral Neuropathy - per cardiology consultants report - Continue with the metanex. Loss of weight - WEIGHT CHECK IN 2 WKS. Palpitations- likely stress induced. If the symptoms worsen, call the office. 03/15/2011 Appointment: Karma Bahena WPtel: [phone] [facility] Follow up 03/15/2011 Patient Education: Patient [...] would need to be surgically removed. . Muscle cramps - the cramps are a little better, continue with the Diltiazem and it is okay to use the over the counter supplement with quinine - but use it sparingly. For the rash, use the prescription the sanitation worker cleaning equipment prescribed for the itching , call if the rash is not improved. Torticollis - continue with physical therapy, call if the neck muscles do not continue to show improvement. Nasal spray- use twice daily, one spray [...] heart rate becoming uncontrolled. . Cellulitis - improved- monitor symptoms - need to check handon Monday morning. . Abdominal pain and rectal itching - recommended pt to use betamethasone on vaginal/rectal region, monitor symptoms call if not improving. Continue with beano and simethicone . Cellulitis - continue with oral antibiotics [...] Fstigue and dypnea- recommended cardiac rehab. . ua obtained, no need for culture at this time. . Rocephin 500mg IM . Hypothyroidism - pt with chronic hypothyroidism, [...] heart rate. Osteoarthritis - send pt to [facility] physical therapy for gereral osteoarhtritis program for [...] in blood pressure readings at home. . ONB-cmwhg-jiz zpack-call if symptoms do not resolve or [...] avoid caffinated foods/fluids. Peripheral Neuropathy - per cardiology consultants report - Continue with the metanex. Loss [...] and start on probiotic twice daily. . Allergies - chronic - recommended pt [...] worse. RX sent to patient's pharmacy. . Hypertension - well controlled - continue [...] - pt to call if not improving. pt is to stop her omeprazole and [...] had left kidney and ureter removed in [place]- doing well . Hematuria - check UA. [...] if their heart rate is becoming uncontrolled. Return in 10 days for follow up [...] spray in the nasal steroid allergy spray. Elevated digoxin level - pt was recommended [...] if pneumonia vaccine was given in hospital. If using nasal spray, instructions as follows: [...] etc. Patient verbalized understanding of plan. . Medicare Exam - today we discussed [...] the treatment when you get back from [place] - will also ask him about doing [...] the treatment when you get back from [place] - will also ask him about doing a cystoscopy to look into bladder to see if there is any bladder irritation. keep using the Premarin - use about 25Cent size of cream onto finger to apply to urethra and do this three times weekly. . Hypertension - well controlled - continue [...] to the hospital for further work up-Dr. Bahean in to evalaute patient as well-Will keep [...] months based on previous levels of control. pt to have esr, crp, tsh, free [...] exposure,and dyspnea on exertion - will ask [employer] Patient do an overnight oxygen study [...]
--- OUTSIDE RECORDS SUMMARY | 2018-12-10 20:36 | XMS REPORT | CCD ---
Author Author Laura Colin Organization Karma Bahena MD, [facility] Address [address] [place] [address] Phone Care Team Providers Care Resident Doctor Name Role Phone Karma Bahena PP Unavailable CCM Unavailable Summary Purpose Interface Exchange Insurance Providers Payer name Policy type / Coverage type Covered libertarian ID Effective Begin Date Effective End Date WPS Medicare Part B Medicare Part B [id number] 2018 Unknown AARP Medicare Part B [id number] 2018 Unknown Family history Sister Diagnosis Age [...] Unknown House 03/15/[address]: 708620823 Never smoker 03/15/2011 Has the patient ever used illegal drugs? Unknown Has never used illegal drugs 03/15/2011 Allergies, Adverse Reactions, Alerts Substance Reaction Codes Entered Date Inactivated Date Status BACTINE RxNorm: 959920 03/04/2011 No Inactive Date Active MICONAZOLE RxNorm: 6932 03/04/2011 No Inactive Date Active NEOSPORIN RxNorm: 137102 03/04/2011 No Inactive Date Active NEOMYCIN RxNorm: 7299 03/04/2011 No Inactive Date Active CORTISPORIN RxNorm: 03914 03/04/2011 No Inactive Date Active bactrim RxNorm: 194509 03/13/2012 No Inactive Date Active AUGMENTIN diarrhea RxNorm: 614943 2016 No Inactive Date Active METRONIDAZOLE Unknown 03/04/2011 No Inactive Date Active NYSTATIN Unknown 03/04/2011 No Inactive Date Active PNEUMOCOCCAL VACCINE Unknown 03/04/2011 No Inactive Date Active Past Medical History Illness Codes Condition Status Onset Date Resolved Date Chronic atrial fibrillation ICD-9: 427.31 ICD-10: I48.2 Active 12/25/2013 Unknown Pain in right toe(s) ICD- 9: [...] 401.9 ICD-10: I10 Active 12/25/2013 Unknown Other custodial (current) drug therapy ICD-9: V58.83 ICD-10: Z79.899 Active 01/31/2018 Unknown Encounter for general adult medical examination with abnormal findings ICD-9: V70.0 ICD-10: Z00.01 Active 01/23/2017 Unknown Allergic rhinitis due to pollen ICD-9: 477.0 ICD-10: J30.1 Active 12/20/2015 Unknown Cough ICD-9: 786.2 ICD-10: R05 Active 11/23/2016 Unknown Other allergic rhinitis ICD-9: 477.8 ICD-10: J30.89 Active 10/12/2015 Unknown Age-related osteoporosis without current pathological fracture ICD-9: 733.00 ICD-10: M81.0 Active 07/11/2014 Unknown Encounter for immunization ICD-9: V04.81 ICD-10: Z23 Active 04/18/2012 Unknown Localized edema ICD-9: 782.3 ICD-10: R60.0 Active 06/09/2016 Unknown Dysphonia ICD-9: 784.42 ICD-10: R49.0 Active 01/19/2017 Unknown Acute upper respiratory infection, unspecified ICD-9: 465.9 ICD-10: J06.9 Active 12/20/2015 Unknown Acute laryngopharyngitis ICD-9: 465.0 ICD-10: J06.0 [...] ICD-10: L72.0 Active 02/01/2016 Unknown 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 ICD-9: V58.69 ICD-10: Z79.899 [...] fibrillation ICD-9: 427.31 ICD-10: I48.2 12/25/2013 Active Pain in right toe(s) ICD- 9: [...] 401.9 ICD-10: I10 12/25/2013 Active 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 ICD-9: V58.83 ICD-10: Z79.899 01/31/2018 Active Encounter for general adult medical examination with abnormal findings ICD-9: V70.0 ICD-10: Z00.01 01/23/2017 Active Allergic rhinitis due to pollen ICD-9: 477.0 ICD-10: J30.1 12/20/2015 Active Cough ICD-9: 786.2 ICD-10: R05 11/23/2016 Active Other allergic rhinitis ICD-9: 477.8 ICD-10: J30.89 10/12/2015 Active Age-related osteoporosis without current pathological fracture ICD-9: 733.00 ICD-10: M81.0 07/11/2014 Active Encounter for immunization ICD-9: V04.81 ICD-10: Z23 04/18/2012 Active Localized edema ICD-9: 782.3 ICD-10: R60.0 06/09/2016 Active Dysphonia ICD-9: 784.42 ICD-10: R49.0 01/19/2017 Active Acute upper respiratory infection, unspecified ICD-9: 465.9 ICD-10: J06.9 12/20/2015 Active Acute laryngopharyngitis ICD-9: 465.0 ICD-10: J06.0 [...] ICD-9: 706.2 ICD-10: L72.0 02/01/2016 Active Other custodial (current) drug therapy ICD-9: V58.69 ICD-10: Z79.899 [...] Fill Instructions cyclobenzaprine 5 mg tablet RxNorm: 296227 Tablet(s) TABLET(S) 1/2 TABLET(S) PO Q8 NEEDED MUSCLE SPASMS 08/14/2018 No Stop Date Active Nitro-Bid 2 % transdermal ointment RxNorm: 547696 1 dime size amount TD BID to fingers and toes 08/14/2018 09/12/2018 Active spironolactone 25 mg tablet RxNorm: 959650 1 Tablet(s) PO BID 08/14/2018 11/06/2019 Active see new directions and quantity cyclobenzaprine 5 mg tablet RxNorm: 315307 TABLET(S) 1/2 TABLET(S) PO Q8 NEEDED MUSCLE SPASMS 08/06/2018 08/13/2018 Inactive amlodipine 5 mg tablet RxNorm: 857810 1/2 Tablet(s) PO daily may take an extra 1/2 pill at the end of the day if blood pressure is elevated over 140 07/26/2018 12/22/2018 Active cefdinir 300 mg capsule RxNorm: 844958 1 Capsule(s) PO BID 06/20/2018 06/26/2018 Inactive cefdinir 300 mg capsule RxNorm: 446338 1 Capsule(s) PO BID 06/20/2018 06/19/2018 Inactive metoprolol succinate ER 50 mg tablet,extended release 24 hr RxNorm: 306695 1.5 Tablet(s) daily 06/15/2018 03/11/2019 Active sucralfate 100 mg/mL oral suspension RxNorm: 969085 2 Teaspoon(s) PO TID as needed with reflux symptoms 06/04/2018 No Stop Date Active Vesicare 10 mg tablet RxNorm: 540701 1 TABLET(S) PO EVERY OTHER DAY 05/14/2018 01/08/2019 Active levothyroxine 50 mcg tablet RxNorm: 067902 1 TABLET(S) PO DAILY 04/30/2018 07/28/2018 Inactive Patient requests 90 days supply spironolactone 25 mg tablet RxNorm: 722650 1 Tablet(s) PO daily 03/14/2018 08/13/2018 Inactive levothyroxine 50 mcg tablet RxNorm: 821787 1 Tablet(s) PO daily 02/01/2018 04/29/2018 Inactive Eliquis 2.5 mg tablet RxNorm: 2703054 1 Tablet(s) PO BID 01/31/2018 02/20/2018 Inactive levothyroxine 50 mcg tablet RxNorm: 204021 1 Tablet(s) PO daily 01/31/2018 01/31/2018 Inactive Eliquis 2.5 mg tablet RxNorm: 8891054 TAKE 1 TABLET BY MOUTH TWICE DAILY 01/23/2018 07/21/2018 Inactive metoprolol succinate ER 50 mg tablet,extended release 24 hr RxNorm: 332132 1 TABLET(S) PO DAILY 01/23/2018 01/30/2018 Inactive metoprolol succinate ER 50 mg tablet,extended release 24 hr RxNorm: 022304 1.5 Tablet(s) daily 01/22/2018 06/14/2018 Inactive lisinopril 20 mg tablet RxNorm: 202130 1/2 Tablet(s) daily 01/19/2018 01/21/2018 Inactive Patient requests 90 days supply Singulair 10 mg tablet RxNorm: 795324 TAKE 1 TABLET BY MOUTH AT BEDTIME 01/18/2018 04/17/2018 Inactive Patient requests 90 days supply Singulair 10 mg tablet RxNorm: 157471 Tablet(s) PO 01/17/2018 01/17/2018 Inactive digoxin 125 mcg tablet RxNorm: 472712 1 TABLET(S) PO DAILY 01/03/2018 12/28/2018 Active Symbicort 160 mcg-4.5 mcg/actuation HFA aerosol inhaler RxNorm: 5784659 2 Puff(s) INH BID 12/14/2017 04/12/2018 Inactive please dispense an aerochamber for patient as well as her symbicort pantoprazole 40 mg tablet,delayed release RxNorm: 099307 1 Tablet(s) PO daily 12/14/2017 12/08/2018 Active cyclobenzaprine 5 mg tablet RxNorm: 636654 Tablet(s) 1/2 TABLET(S) PO Q8 NEEDED MUSCLE SPASMS 12/14/2017 08/05/2018 Inactive ProAir RespiClick 90 mcg/actuation breath activated RxNorm: 8437947 1-2 INH QID as needed shortness of breath 12/14/2017 07/11/2018 Inactive cyclobenzaprine 5 mg tablet RxNorm: 400444 1/2 TABLET(S) PO Q8 NEEDED MUSCLE SPASMS 12/08/2017 12/13/2017 Inactive betamethasone dipropionate 0.05 % topical ointment RxNorm: 272584 1 Application TOP TID use topically on the rectal tissue three times daily x 1 week then as needed 11/13/2017 No Stop Date Active Premarin 0.625 mg/gram vaginal cream RxNorm: 439409 1/2 GRAM(S) VAG TIW 11/13/2017 12/12/2017 Inactive cyclobenzaprine 5 mg tablet RxNorm: 195973 1/2 TABLET(S) PO Q8 NEEDED MUSCLE SPASMS 10/17/2017 12/07/2017 Inactive Vesicare 10 mg tablet RxNorm: 560167 1 Tablet(s) PO every other day 10/17/2017 04/14/2018 Inactive lisinopril 20 mg tablet RxNorm: 040825 1 TABLET(S) PO DAILY 10/02/2017 01/18/2018 Inactive Patient requests 90 days supply levothyroxine 75 mcg tablet RxNorm: 285686 1 TABLET(S) PO DAILY 09/25/2017 01/30/2018 Inactive spironolactone 25 mg tablet RxNorm: 191870 1 TABLET(S) PO DAILY 08/16/2017 03/13/2018 Inactive cyclobenzaprine 5 mg tablet RxNorm: 881718 1/2 TABLET(S) PO Q8 NEEDED MUSCLE SPASMS 08/16/2017 10/16/2017 Inactive Eliquis 2.5 mg tablet RxNorm: 5751323 TAKE 1 TABLET BY MOUTH TWICE DAILY 07/26/2017 01/21/2018 Inactive cyclobenzaprine 5 mg tablet RxNorm: 467882 1/2 Tablet(s) PO Q8 as needed muscle spasms 06/19/2017 08/15/2017 Inactive lisinopril 20 mg tablet RxNorm: 536456 1 TABLET(S) PO DAILY 06/12/2017 10/01/2017 Inactive metoprolol succinate ER 50 mg tablet,extended release 24 hr RxNorm: 282315 1 TABLET(S) PO DAILY 04/07/2017 01/01/2018 Inactive spironolactone 25 mg tablet RxNorm: 405022 1 Tablet(s) PO daily 03/27/2017 03/13/2018 Inactive acyclovir 800 mg tablet RxNorm: 923482 1 Tablet(s) PO TID 03/21/2017 03/30/2017 Inactive acyclovir 800 mg tablet RxNorm: 764260 1 Tablet(s) PO TID 03/21/2017 03/20/2017 Inactive levothyroxine 75 mcg tablet RxNorm: 042114 1 Tablet(s) PO daily 03/16/2017 09/11/2017 Inactive spironolactone 25 mg tablet RxNorm: 382556 1 TABLET(S) PO DAILY 02/09/2017 03/26/2017 Inactive lisinopril 20 mg tablet RxNorm: 409095 1 TABLET(S) PO DAILY 01/02/2017 05/31/2017 Inactive Zithromax Z-Claudio 250 mg tablet RxNorm: 728853 1 Tablet(s) PO UD 11/29/2016 12/03/2016 Inactive ZPACK Keflex 500 mg capsule RxNorm: 293696 1 Capsule(s) PO TID 11/23/2016 12/02/2016 Inactive guaifenesin 400 mg tablet RxNorm: 834449 1 Tablet(s) PO Q6 as needed 11/23/2016 11/27/2016 Inactive omeprazole 40 mg capsule,delayed release RxNorm: 131568 1 Capsule(s) PO QPM 11/02/2016 12/13/2017 Inactive digoxin 125 mcg tablet RxNorm: 821343 1 TABLET(S) PO DAILY 10/27/2016 07/23/2017 Inactive cyclobenzaprine 5 mg tablet RxNorm: 580550 1/2 Tablet(s) PO Q8 PRN 10/25/2016 06/18/2017 Inactive prn muscle spasms Augmentin 500 mg-125 mg tablet RxNorm: 897787 1 Tablet(s) PO BID 10/24/2016 11/02/2016 Inactive Lasix 20 mg tablet RxNorm: 792647 Tablet(s) PRN one to two times a week if needed 07/27/2016 No Stop Date Active Patient requests 90 days supply spironolactone 25 mg tablet RxNorm: 660940 1 Tablet(s) PO daily 07/27/2016 02/08/2017 Inactive Diflucan 150 mg tablet RxNorm: 541718 1 Tablet(s) PO daily 07/27/2016 08/02/2016 Inactive lisinopril 20 mg tablet RxNorm: 490975 1 Tablet(s) PO daily 07/12/2016 01/01/2017 Inactive Lasix 20 mg tablet RxNorm: 874667 1 TABLET(S) PO EVERY OTHER DAY EVERY OTHER DAY 06/10/2016 07/26/2016 Inactive Patient requests 90 days supply potassium chloride ER 10 mEq capsule,extended release RxNorm: 446984 1 CAPSULE(S) PO EVERY OTHER DAY 06/10/2016 07/26/2016 Inactive Patient requests 90 days supply potassium chloride ER 10 mEq capsule,extended release RxNorm: 840343 1 Capsule(s) PO every other day 06/09/2016 06/09/2016 Inactive Lasix 20 mg tablet RxNorm: 294797 1 Tablet(s) PO every other day every other day 06/09/2016 06/09/2016 Inactive levothyroxine 88 mcg tablet RxNorm: 255244 1 Tablet(s) PO daily 05/11/2016 11/06/2016 Inactive Premarin 0.625 mg/gram vaginal cream RxNorm: 095457 1/2 Gram(s) VAG TIW 03/24/2016 03/18/2017 Inactive metoprolol succinate ER 50 mg tablet,extended release 24 hr RxNorm: 278145 1 Tablet(s) PO daily 03/24/2016 03/18/2017 Inactive pantoprazole 40 mg tablet,delayed release RxNorm: 883746 1 Tablet(s) PO daily 02/08/2016 11/01/2016 Inactive betamethasone dipropionate 0.05 % topical ointment RxNorm: 702263 1 Application TOP TID use topically on the rectal tissue three times daily x 1 week then as needed 02/02/2016 11/12/2017 Inactive pantoprazole 40 mg tablet,delayed release RxNorm: 654599 1 Tablet(s) PO daily 2016 02/07/2016 Inactive alprazolam 0.25 mg tablet RxNorm: 815957 1 Tablet(s) PO Q6 as needed 12/04/2015 No Stop Date Active Vesicare 10 mg tablet RxNorm: 170327 1 Tablet(s) PO every other day 11/03/2015 10/16/2017 Inactive alprazolam 0.25 mg tablet RxNorm: 351137 1 Tablet(s) PO Q6 as needed 11/03/2015 12/03/2015 Inactive Premarin 0.625 mg/gram vaginal cream RxNorm: 116471 1/2 Gram(s) VAG TIW 11/03/2015 03/23/2016 Inactive levothyroxine 88 mcg tablet RxNorm: 502710 1 Tablet(s) PO daily 11/03/2015 05/10/2016 Inactive Diflucan 150 mg tablet RxNorm: 584064 1 Tablet(s) PO daily 10/19/2015 10/25/2015 Inactive cetirizine 10 mg chewable tablet RxNorm: 4358058 1 Tablet(s) PO daily 10/13/2015 11/11/2015 Inactive cetirizine 10 mg capsule RxNorm: 7788804 1 Capsule(s) PO daily 10/13/2015 11/11/2015 Inactive Vesicare 10 mg tablet RxNorm: 539742 1/2 TABLET(S) PO BID 09/21/2015 11/02/2015 Inactive betamethasone dipropionate 0.05 % topical ointment RxNorm: 556781 1 Application TOP TID use topically on the rectal tissue three times daily x 1 week then as needed 09/15/2015 02/01/2016 Inactive lisinopril 20 mg tablet RxNorm: 349839 1 Tablet(s) PO daily 09/01/2015 07/11/2016 Inactive digoxin 125 mcg tablet RxNorm: 772923 1 Tablet(s) PO daily 09/01/2015 08/25/2016 Inactive Augmentin 500 mg-125 mg tablet RxNorm: 354074 1 Tablet(s) PO TID 05/26/2015 06/04/2015 Inactive Pyridium 200 mg tablet RxNorm: 7840329 1 Tablet(s) PO TID 05/26/2015 05/27/2015 Inactive levothyroxine 88 mcg tablet RxNorm: 989915 1 Tablet(s) PO daily except 1/2 pill on monday and 05/07/2015 11/02/2015 Inactive digoxin 125 mcg tablet RxNorm: 185940 1 Tablet(s) PO daily 05/07/2015 08/31/2015 Inactive lisinopril 20 mg tablet RxNorm: 413785 1 TABLET(S) PO BID 04/13/2015 09/01/2015 Inactive Coumadin 1 mg tablet RxNorm: 379654 1 TABLET(S) PO DAILY 03/31/2015 08/31/2015 Inactive Coumadin 2 mg tablet RxNorm: 999705 4MG IN AM AND 1MG AT NIGHT TABLET(S) PO DAILY DIRECTED. 03/31/2015 08/31/2015 Inactive levothyroxine 88 mcg tablet RxNorm: 000070 1 Tablet(s) PO daily 03/23/2015 05/06/2015 Inactive alprazolam 0.25 mg tablet RxNorm: 160529 Tablet(s) PO 03/23/2015 04/06/2015 Inactive levothyroxine 88 mcg tablet RxNorm: 767194 1 Tablet(s) PO daily 01/28/2015 03/22/2015 Inactive levothyroxine 88 mcg tablet RxNorm: 475351 1 Tablet(s) PO daily 01/28/2015 01/27/2015 Inactive diltiazem ER 120 mg capsule,extended release RxNorm: 512269 1 Capsule(s) PO BID patient would like 4 months at a time 01/06/2015 09/28/2015 Inactive digoxin 125 mcg tablet RxNorm: 476183 Tablet(s) 1 TABLET(S) PO DAILY 12/24/2014 12/23/2014 Inactive pt will be paying [employer] (On $4 list)Patient requests 90 days supply digoxin 125 mcg tablet RxNorm: 477757 Tablet(s) 1 TABLET(S) PO DAILY M W F Sat and 2 tabs on T 12/24/2014 05/06/2015 Inactive pt will be paying [employer] (On $4 list)Patient requests 90 days supply dicyclomine 20 mg tablet RxNorm: 271456 1 Tablet(s) PO daily 11/17/2014 08/31/2015 Inactive one ac dinner and up to tid prn levothyroxine 88 mcg tablet RxNorm: 374231 1 Tablet(s) PO daily 11/03/2014 01/27/2015 Inactive Premarin 0.625 mg/gram vaginal cream RxNorm: 934626 1 APPLICATION VAG 1 APPLICATOR PER VAGINA 3 TIMES PER WEEK 11/03/2014 07/30/2015 Inactive digoxin 125 mcg tablet RxNorm: 085669 1 TABLET(S) PO DAILY 09/29/2014 12/23/2014 Inactive pt will be paying [employer] (On $4 list)Patient requests 90 days supply digoxin 125 mcg tablet RxNorm: 093699 1 TABLET(S) PO DAILY 07/11/2014 04/06/2015 Inactive Vesicare 10 mg tablet RxNorm: 353126 1/2 Tablet(s) PO BID 05/20/2014 05/14/2015 Inactive Levaquin 500 mg tablet RxNorm: 444964 1 Tablet(s) PO daily 05/06/2014 05/08/2014 Inactive take probiotic BID while on ABT Levaquin 500 mg tablet RxNorm: 750570 1 Tablet(s) PO daily 05/02/2014 05/05/2014 Inactive take probiotic BID while on ABT diltiazem ER 120 mg capsule,extended release RxNorm: 813776 1 Capsule(s) PO BID patient would like 4 months at a time 04/29/2014 2015 Inactive Vesicare 10 mg tablet RxNorm: 615946 1/2 Tablet(s) PO BID 04/29/2014 05/19/2014 Inactive lisinopril 20 mg tablet RxNorm: 675054 1 Tablet(s) PO BID 03/20/2014 03/14/2015 Inactive diltiazem 90 mg tablet RxNorm: 652780 1/2 TABLET(S) PO QPM 03/04/2014 04/28/2014 Inactive also 180 q am diltiazem ER 120 mg capsule,extended release RxNorm: 786479 1 Capsule(s) PO daily patient would like 4 months at a time 01/29/2014 04/28/2014 Inactive Vesicare 10 mg tablet RxNorm: 455137 1 Tablet(s) PO QHS 01/14/2014 04/28/2014 Inactive Coumadin 2 mg tablet RxNorm: 054426 4mg in AM and 1mg at night Tablet(s) PO daily as directed. 12/25/2013 03/30/2015 Inactive Metanx 3 mg-35 mg-2 mg tablet RxNorm: 1 Tablet(s) PO daily 12/25/2013 11/02/2015 Inactive digoxin 125 mcg tablet RxNorm: 482240 1 Tablet(s) PO daily 12/25/2013 09/28/2014 Inactive pt will be paying [employer] (On $4 list) Coumadin 2 mg tablet RxNorm: 263598 7.5 wed 5mg other Tablet(s) PO as directed. 12/03/2013 12/24/2013 Inactive omeprazole 20 mg tablet,delayed release RxNorm: 432172 1 Tablet(s) PO BID 11/27/2013 04/28/2014 Inactive Coumadin 2 mg tablet RxNorm: 546494 5 mg daily Tablet(s) PO as directed. 11/26/2013 12/02/2013 Inactive 5 mg daily Xanax 0.25 mg tablet RxNorm: 211487 1 Tablet(s) PO Q6 PRN 11/11/2013 12/25/2013 Inactive alprazolam 0.25 mg tablet RxNorm: 482966 tablet oral 11/11/2013 03/22/2015 Inactive sucralfate 1 gram tablet RxNorm: 188413 1 Tablet(s) PO AC & HS 11/04/2013 11/03/2013 Inactive sucralfate 1 gram tablet RxNorm: 666047 1 Tablet(s) PO AC & HS 11/04/2013 01/02/2014 Inactive Synthroid 100 mcg tablet RxNorm: 221679 1 Tablet(s) PO daily 10/31/2013 10/25/2014 Inactive Synthroid 100 mcg tablet RxNorm: 553041 1 Tablet(s) PO daily 09/30/2013 10/29/2013 Inactive Vesicare 10 mg tablet RxNorm: 097605 1 Tablet(s) PO QHS 09/30/2013 01/13/2014 Inactive Lotemax 0.5 % eye ointment RxNorm: 0024081 ointment opht 09/06/2013 12/10/2013 Inactive levothyroxine 100 mcg tablet RxNorm: 149674 tablet oral 09/05/2013 11/02/2014 Inactive Synthroid 100 mcg tablet RxNorm: 151278 1 Tablet(s) PO daily 09/05/2013 09/29/2013 Inactive Prolia 60 mg/mL Sub-Q Syringe RxNorm: 121325 1 Milliliter(s) SQ 06/25/2013 11/02/2015 Inactive dicyclomine 20 mg tablet RxNorm: 026611 1 Tablet(s) PO daily 06/24/2013 06/18/2014 Inactive one ac dinner and up to tid prn omeprazole 20 mg tablet,delayed release RxNorm: 464273 1 Tablet(s) PO BID 06/24/2013 11/26/2013 Inactive Cipro 500 mg tablet RxNorm: 406467 1 Tablet(s) PO BID 06/20/2013 06/26/2013 Inactive diltiazem ER 120 mg capsule,extended release RxNorm: 421456 1 Capsule(s) PO daily patient would like 4 months at a time 06/03/2013 01/28/2014 Inactive Coumadin 2 mg tablet RxNorm: 693754 as directed Tablet(s) PO as directed. 05/29/2013 11/25/2013 Inactive 5 mg daily Synthroid 88 mcg tablet RxNorm: 184877 1 Tablet(s) PO daily 04/24/2013 04/23/2013 Inactive Synthroid 88 mcg tablet RxNorm: 036926 1 Tablet(s) PO daily 04/24/2013 07/28/2013 Inactive Premarin 0.625 mg/gram vaginal cream RxNorm: 903470 1 Application VAG 1 applicator per vagina 3 times per week 04/23/2013 04/17/2014 Inactive Influenza Virus Vaccine 0.5 mL RxNorm: IM 04/23/2013 04/23/2013 Inactive digoxin 125 mcg tablet RxNorm: 714606 1 Tablet(s) PO daily 02/20/2013 04/20/2013 Inactive pt will be paying [employer] (On $4 list) Digox 125 mcg tablet RxNorm: 1951531 tablet oral 02/13/2013 03/20/2014 Inactive digoxin 125 mcg tablet RxNorm: 889747 1 Tablet(s) PO daily 02/13/2013 02/19/2013 Inactive diltiazem 90 mg tablet RxNorm: 642751 1/2 Tablet(s) PO QPM 02/13/2013 02/07/2014 Inactive also 180 q am Levoxyl 75 mcg tablet RxNorm: 692006 1 Tablet(s) PO 01/16/2013 04/23/2013 Inactive Coumadin 2 mg tablet RxNorm: 463404 6mg daily except 3mg on mon and mon Tablet(s) PO 01/15/2013 05/28/2013 Inactive 5 mg daily Coumadin 2 mg tablet RxNorm: 028422 6mg daily Tablet(s) PO 12/21/2012 01/14/2013 Inactive 5 mg daily silver sulfadiazine 1 % Topical Cream RxNorm: 864917 TOP apply to affected area with each dressing change 12/19/2012 12/25/2013 Inactive cephalexin 500 mg tablet RxNorm: 505322 1 Tablet(s) PO TID 12/11/2012 12/17/2012 Inactive digoxin 125 mcg tablet RxNorm: 7244482 1 Tablet(s) PO daily 10/30/2012 02/12/2013 Inactive digoxin 125 mcg tablet RxNorm: 6728124 2 tab tue one other days Tablet(s) PO daily 10/23/2012 10/29/2012 Inactive lisinopril 10 mg tablet RxNorm: 054881 1 Tablet(s) PO daily 10/17/2012 08/14/2013 Inactive Cipro 500 mg tablet RxNorm: 544380 1 Tablet(s) PO BID 09/13/2012 09/19/2012 Inactive Coumadin 1 mg tablet RxNorm: 098132 1 Tablet(s) PO daily 09/03/2012 09/02/2012 Inactive Coumadin 1 mg tablet RxNorm: 226208 1 Tablet(s) PO daily 09/03/2012 12/21/2012 Inactive Coumadin 2 mg tablet RxNorm: 684102 Tablet(s) PO 07/25/2012 12/20/2012 Inactive 5 mg daily digoxin 125 mcg tablet RxNorm: 1965623 1 Tablet(s) PO daily 06/28/2012 10/22/2012 Inactive Coumadin 2 mg tablet RxNorm: 611051 Tablet(s) PO 06/27/2012 07/24/2012 Inactive 5mg daily except 4mg on monday Coumadin 2 mg tablet RxNorm: 364004 Tablet(s) PO 06/19/2012 06/26/2012 Inactive 5mg e mon thur sat sun4mg mond(has 2mg and 1 mg tab) digoxin 125 mcg tablet RxNorm: 4440687 1 Tablet(s) PO daily 05/29/2012 06/27/2012 Inactive Coumadin 2 mg tablet RxNorm: 060157 Tablet(s) PO 05/15/2012 06/18/2012 Inactive 5mg tue thur sat sun4mg mon(has 2mg and 1 mg tab) Coumadin 2 mg tablet RxNorm: 537483 Tablet(s) PO 04/25/2012 05/14/2012 Inactive 5mg tue thru sat4mg mond sun(has 2mg and 1 mg tab) Metanx 3 mg-35 mg-2 mg tablet RxNorm: 1 Tablet(s) PO BID 04/18/2012 12/24/2013 Inactive dicyclomine 20 mg tablet RxNorm: 250683 1 Tablet(s) PO 04/18/2012 06/23/2013 Inactive one ac dinner and up to tid prn digoxin 125 mcg tablet RxNorm: 5824392 Tablet(s) PO daily except .25 on Tuesdays and 04/09/2012 05/28/2012 Inactive omeprazole 20 mg tablet,delayed release RxNorm: 082540 1 Tablet(s) PO BID 04/09/2012 04/03/2013 Inactive digoxin 125 mcg tablet RxNorm: 7254732 1 Tablet(s) PO UD daily except none on Tuesdays and 03/13/2012 04/08/2012 Inactive Premarin 0.625 mg/gram Vaginal Cream RxNorm: 867261 1 Application VAG 1 applicator per vagina 3 times per week 02/20/2012 02/13/2013 Inactive omeprazole 20 mg tablet,delayed release RxNorm: 077338 1 Tablet(s) PO BID 02/13/2012 04/08/2012 Inactive Vesicare 10 mg tablet RxNorm: 462321 1 Tablet(s) PO QHS 02/13/2012 02/06/2013 Inactive Diflucan 150 mg tablet RxNorm: 735601 1 Tablet(s) PO daily 02/13/2012 02/19/2012 Inactive omeprazole 20 mg tablet,delayed release RxNorm: 771730 1 Tablet(s) PO BID 01/06/2012 02/12/2012 Inactive Calcium 600 + D(3) 600 mg (1,500)-200 unit Tab RxNorm: 520687 2 Tablet(s) PO BID 01/06/2012 08/31/2015 Inactive diltiazem 90 mg tablet RxNorm: 420265 1/2 Tablet(s) PO QPM 12/26/2011 02/12/2013 Inactive also 180 q am diltiazem ER 180 mg Cap RxNorm: 227198 1 Capsule(s) PO QAM 12/26/2011 04/08/2012 Inactive 45mg q hs Flagyl 500 mg Tab RxNorm: 682670 1 Tablet(s) PO BID 12/14/2011 12/20/2011 Inactive dicyclomine 10 mg Cap RxNorm: 683387 1 Capsule(s) PO AC & HS 12/01/2011 12/25/2011 Inactive Levaquin 500 mg Tab RxNorm: 387131 1 Tablet(s) PO daily 11/23/2011 11/29/2011 Inactive Rocephin 500 mg Solution for Injection RxNorm: 262669 Inj 11/23/2011 11/23/2011 Inactive acyclovir 400 mg Tab RxNorm: 879182 1 Tablet(s) PO QID 11/10/2011 11/19/2011 Inactive acyclovir 400 mg Tab RxNorm: 700751 1 Tablet(s) PO QID 11/10/2011 11/09/2011 Inactive lisinopril 20 mg Tab RxNorm: 585859 1 Tablet(s) PO daily 10/03/2011 11/27/2011 Inactive lisinopril 20 mg Tab RxNorm: 783809 1 Tablet(s) PO daily 08/08/2011 10/02/2011 Inactive Reclast 5 mg/100 mL IV RxNorm: 411742 Milliliter(s) IV Yearly 06/08/2011 01/16/[address] Hansen manages Rocephin 500 mg Solution for Injection RxNorm: 053745 1 Milliliter(s) Inj 03/04/2011 08/08/2011 Inactive Ceftin 500 mg Tab RxNorm: 430523 1 Tablet(s) PO BID 03/04/2011 08/08/2011 Inactive Vitamin D3 1,000 unit tablet RxNorm: 062110 2 Tablet(s) PO daily No Start Date Active Stool Softener 100 mg tablet RxNorm: 9251080 2 Tablet(s) PO QHS No Start Date Active Beano tablet RxNorm: 2-3 Tablet(s) PO as needed No Start Date Active Probiotic Pearls 15 mg (1 billion cell) capsule,delayed release RxNorm: 1 Capsule(s) PO daily No Start Date Active Lipitor 10 mg tablet RxNorm: 038826 1 Tablet(s) PO daily No Start Date Active Miralax 17 gram oral powder packet RxNorm: 072931 1/2 packet PO QHS No Start Date Active multivitamin Tab RxNorm: 1 Tablet(s) PO daily No Start Date Active Tylenol Extra Strength 500 mg tablet RxNorm: 919997 2 Tablet(s) PO as needed No Start Date Active Combigan 0.2 %-0.5 % eye drops RxNorm: 609862 1 Drop(s) OPH BID No Start Date Active 1 drop twice daily left eye Lexapro 5 mg tablet RxNorm: 387189 1 Tablet(s) PO daily No Start Date Active Tatiana Allergy 180 mg tablet RxNorm: 696194 1 Tablet(s) PO daily No Start Date Active Lotemax 0.5 % eye drops,suspension RxNorm: 784724 1 Drop(s) OPH right eye BID No Start Date Active Levoxyl 50 mcg tablet RxNorm: 525511 1 Tablet(s) PO daily No Start Date 01/15/2013 Inactive lisinopril-hydrochlorothiazide 20 mg-25 mg Tab RxNorm: 978112 1 Tablet(s) PO daily No Start Date 08/07/2011 Inactive Metanx 3 mg-35 mg-2 mg tablet RxNorm: 1 Tablet(s) PO daily No Start Date 04/17/2012 Inactive diltiazem CD 120 mg capsule,extended release 24 hr RxNorm: 944022 1 Capsule(s) PO daily No Start Date 09/28/2015 Inactive lisinopril 20 mg tablet RxNorm: 204167 Tablet(s) PO No Start Date Active Lumigan 0.01 % Eye Drops RxNorm: 3875737 1 Drop(s) OPH daily Left eye No Start Date 12/10/2013 Inactive prednisolone acetate 1 % Eye Drops, Susp RxNorm: 7813430 1 Drop(s) OPH BID 1 drop right eye am and hs No Start Date 11/02/2015 Inactive Eliquis 5 mg tablet RxNorm: 8244275 1 Tablet(s) PO BID No Start Date 06/08/2016 Inactive potassium gluconate (bulk) Misc RxNorm: Miscellaneous No Start Date 12/25/2011 Inactive Calcium 600 + D(3) 600 mg (1,500)-200 unit Tab RxNorm: 082370 3 Tablet(s) PO daily No Start Date 2012 Inactive Zyrtec 10 mg tablet RxNorm: 7073023 1 Tablet(s) PO daily No Start Date 08/02/2016 Inactive Synthroid 100 mcg tablet RxNorm: 860688 1 Tablet(s) PO daily No Start Date 09/04/2013 Inactive metoprolol succinate ER 50 mg tablet,extended release 24 hr RxNorm: 689319 1 Tablet(s) PO daily No Start Date 03/23/2016 Inactive Carafate 100 mg/mL oral suspension RxNorm: 057710 2 Teaspoon(s) PO as needed with reflux symptoms No Start Date 06/03/2018 Inactive Metanx 3 mg-35 mg-2 mg tablet RxNorm: 1 Tablet(s) PO daily 2pm No Start Date 11/02/2015 Inactive Lexapro 5 mg tablet RxNorm: 775365 1 Tablet(s) PO daily No Start Date 08/18/2015 Inactive Iron (dried) oral RxNorm: 35110 oral No Start Date 11/02/2015 Inactive timolol 0.5 % Eye Drops RxNorm: 880014 1 Drop(s) OPH daily left eye No Start Date 12/18/2013 Inactive multivitamin Cap RxNorm: 1 Capsule(s) PO daily No Start Date 12/25/2011 Inactive dicyclomine 10 mg Cap RxNorm: 148851 2 Capsule(s) PO daily No Start Date 11/30/2011 Inactive silver sulfadiazine 1 % Topical Cream RxNorm: 630118 TOP apply to affected area with each dressing change No Start Date 12/18/2012 Inactive magnesium oxide 400 mg Tab RxNorm: 277108 1 Tablet(s) PO daily No Start Date 11/02/2015 Inactive Pradaxa 75 mg Cap RxNorm: 9435007 1 Capsule(s) PO BID No Start Date 04/09/2012 Inactive magnesium oxide 400 mg Tab RxNorm: 769039 2 Tablet(s) PO daily magnesium plus zinc No Start Date 12/25/2011 Inactive biotin 1000 mg RxNorm: 1 PO daily No Start Date 12/25/2011 Inactive Synthroid 50 mcg Tab RxNorm: 029585 Tablet(s) PO No Start Date 12/25/2011 Inactive diltiazem ER 180 mg Cap RxNorm: 268576 1 Capsule(s) PO daily No Start Date 12/25/2011 Inactive 1 D 3 1000 iu Oral RxNorm: Oral No Start Date 12/25/2011 Inactive Coumadin 2 mg tablet RxNorm: 717579 Tablet(s) PO No Start Date 04/24/2012 Inactive 5mg tue lbxp9gm mon sat sun(has 2mg and 1 mg tab) dicyclomine 20 mg tablet RxNorm: 104483 Tablet(s) PO No Start Date 04/17/2012 Inactive one ac dinner and up to tid prn lactobacillus acidophilus tablet RxNorm: 1 Tablet(s) PO daily No Start Date 11/03/2015 Inactive Eliquis 2.5 mg tablet RxNorm: 1038524 1 Tablet(s) PO BID No Start Date 07/25/2017 Inactive Levoxyl 75 mcg Tab RxNorm: 684669 1 Tablet(s) PO daily No Start Date 10/02/2011 Inactive digoxin 125 mcg tablet RxNorm: 2971393 1 Tablet(s) PO daily No Start Date 03/12/2012 Inactive pantoprazole 40 mg tablet,delayed release RxNorm: 951561 1 Tablet(s) PO BID No Start Date 01/04/2016 Inactive cyclobenzaprine 5 mg tablet RxNorm: 405120 1/2 Tablet(s) PO Q8 PRN No Start Date 10/24/2016 Inactive diltiazem 90 mg Tab RxNorm: 770487 1/2 Tablet(s) PO QPM No Start Date 12/25/2011 Inactive Mirapex 1 mg Tab RxNorm: 841577 1 Tablet(s) PO QHS No Start Date 12/25/2011 Inactive Xanax 0.25 mg tablet RxNorm: 811219 1 Tablet(s) PO Q6 PRN No Start Date 11/10/2013 Inactive Premarin 0.625 mg/gram Vaginal Cream RxNorm: 850179 1 Application VAG 1 applicator per vagina 3 times per week No Start Date 02/19/2012 Inactive Synthroid 75 mcg Tab RxNorm: 625297 1 Tablet(s) PO daily No Start Date 04/17/2012 Inactive lisinopril 40 mg Tab RxNorm: 833438 1 Tablet(s) PO daily No Start Date 12/25/2011 Inactive Glucosamine Chondroitin Complex Advanced [id number]-1.65mg Tab RxNorm: 2 Tablet(s) PO daily No Start Date 08/08/2011 Inactive famotidine 20 mg tablet RxNorm: 918156 1 Tablet(s) PO QAM No Start Date 11/02/2015 Inactive cranberry extract 250 mg Tab RxNorm: 347129 2 Tablet(s) PO daily No Start Date 08/08/2011 Inactive Vitamin D3 1,000 unit capsule RxNorm: 002146 1 Capsule(s) PO daily No Start Date 08/31/2015 Inactive aspirin 81 mg Tab, Delayed Release RxNorm: 354071 1 Tablet(s) PO daily No Start Date 08/31/2015 Inactive diltiazem ER 120 mg capsule,extended release RxNorm: 860083 1 Capsule(s) PO daily patient would like 4 months at a time No Start Date 06/02/2013 Inactive omeprazole 20 mg Tab, Delayed Release RxNorm: 672205 2 Tablet(s) PO QHS No Start Date 2012 Inactive lisinopril 10 mg tablet RxNorm: 843685 1/2 Tablet(s) PO daily No Start Date 10/16/2012 Inactive Pred Forte 1 % Eye Drops RxNorm: 156938 1 Drop(s) OPH daily right eye No Start Date 12/25/2013 Inactive calcium carbonate 400 mg Chewable Tab RxNorm: 195849 1 Tablet(s) PO daily No Start Date 08/08/2011 Inactive Vesicare 10 mg tablet RxNorm: 885163 1 Tablet(s) PO QHS No Start Date 02/12/2012 Inactive Symbicort 160 mcg-4.5 mcg/actuation HFA aerosol inhaler RxNorm: 8660903 2 Puff(s) INH BID No Start Date 12/13/2017 Inactive potassium 99 mg tablet RxNorm: 1 Tablet(s) PO QPM No Start Date 12/25/2013 Inactive timolol 0.25 % Eye Drops RxNorm: 166005 1 Drop(s) OPH daily Left eye No Start Date 04/17/2012 Inactive diltiazem ER 90 mg capsule,extended release 12 hr RxNorm: 133368 1/2 Capsule(s) PO QPM No Start Date 04/28/2014 Inactive cyclobenzaprine 5 mg Tab RxNorm: 225206 12-1 Tablet(s) PO Q8 PRN No Start Date 12/25/2011 Inactive 1/2 - 1 tab q 8hrs prn muscle spasms Medication Administered Medication Codes Instructions Start Date Status Influenza Virus Vaccine 0.5 mL RxNorm: 04/23/2013 No longer Active Rocephin 500 mg Solution for Injection RxNorm: 557495 11/23/2011 No longer Active Immunizations Vaccine Codes [...] 04/18/2012 completed Assessments Condition Codes Effective Dates Chronic atrial fibrillation ICD-10: I48.2 ICD-9: 427.31 08/14/2018 Raynaud's syndrome without gangrene ICD-10: I73.00 ICD-9: 443.0 08/14/2018 Pain in right toe(s) ICD-10: M79.674 [...] ICD-10: I10 ICD-9: 401.9 01/31/2018 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0 ICD-9: 565.0 2016 Impacted cerumen, right ear ICD-10: H61.21 ICD-9: 389.8 10/19/2015 Urge incontinence ICD-10: N39.41 ICD-9: 788.31 09/29/2015 Unspecified hemorrhoids ICD-10: K64.9 ICD-9: 455.6 09/15/2015 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 ICD-9: 189.1 09/01/2015 Hypothyroidism, unspecified ICD-10: E03.9 ICD-9: 244.9 09/01/2015 Other specified noninflammatory disorders of vagina [...] Cystocele, unspecified ICD-10: N81.10 ICD-9: 618.01 05/07/2015 Atrial fibrillation ICD-9: 427.31 03/23/2015 Bloating ICD-9: 787.3 03/23/2015 ENCNTR LONG-ANTICOAG USE ICD-9: V58.61 03/09/2015 Abdominal pain ICD-9: 789.00 03/09/2015 HYPOTHYROIDISM ICD-9: 244.9 10/30/2014 HEMATURIA NOS ICD-9: 599.70 10/30/2014 Need for pneumococcal vaccine ICD-9: V03.82 07/11/2014 Osteoporosis ICD-9: 733.00 07/11/2014 Osteoarthritis ICD-9: 715.90 07/11/2014 ALLERGIC RHINITIS ICD-9: 477.9 07/11/2014 Urge incontinence ICD-9: 788.31 05/20/2014 Dysuria ICD-9: 788.1 05/20/2014 Other screening mammogram ICD-9: V76.12 05/14/2014 UTI ICD-9: 599.0 05/06/2014 ESSENTIAL HYPERTENSION ICD-9: 401.9 04/29/2014 Irritable bowel ICD-9: 564.1 03/05/2014 DIARRHEA ICD-9: 787.91 01/29/2014 Esophageal reflux ICD-9: 530.81 01/29/2014 MALAISE AND FATIGUE ICD-9: 780.79 12/25/2013 Dyspnea ICD-9: 786.09 12/25/2013 ENCNTR LONG-RX USE NEC ICD-9: V58.69 08/15/2013 Bruising ICD-9: 924.9 08/15/2013 URINARY FREQUENCY ICD-9: 788.41 07/29/2013 Encounter for monitoring digoxin therapy ICD-9: V58.83 05/15/2013 Dizziness and giddiness ICD-9: 780.4 04/23/2013 VACCIN FOR INFLUENZA ICD-9: V04.81 04/23/2013 PALPITATIONS ICD-9: 785.1 04/23/2013 OTHER CONSTIPATION ICD-9: 564.09 03/21/2013 CELLULITIS OF HAND ICD-9: 682.4 12/19/2012 Inflammatory arthritis ICD-9: 714.9 10/30/2012 Elevated digoxin level ICD-9: 796.0 10/30/2012 EDEMA ICD-9: 782.3 07/11/2012 Cystocele ICD-9: 618.01 05/08/2012 Rectocele ICD-9: 618.04 05/08/2012 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 04/18/2012 Nausea and vomiting ICD-9: 787.01 03/13/2012 Vaginal yeast infection ICD-9: 112.1 02/13/2012 IMPACTED CERUMEN ICD-9: 380.4 10/17/2011 Generalized osteoarthritis ICD-9: 715.09 08/08/2011 Muscle cramp ICD-9: 729.82 05/09/2011 Torticollis ICD-9: 723.5 05/09/2011 Rash ICD-9: 782.1 05/09/2011 Underweight ICD-9: 783.22 03/29/2011 Leg cramps, sleep related ICD-9: 327.52 03/29/2011 Peripheral neuropathy, idiopathic ICD-9: 356.9 03/15/2011 Loss of weight ICD-9: 783.21 03/15/2011 Reason For Visit Reason For Visit Effective Dates Notes skin lesion 08/14/2018 skin lesion 07/26/2018 hoarseness [...] Observation Code Item Item Code Result Date Free T4 [id number] FREE T4 1.19 ng/dL 05/08/2018 Digoxin Ord9 DIGOXIN 0.6 NG/ML 05/08/2018 Tsh Ord6 TSH (3rd IS) 10.58 uIU/mL 05/08/2018 Tsh Ord6 TSH (3rd IS) 1.07 uIU/mL 01/31/2018 Free T4 Cxa556 FREE T4 1.63 ng/dL 01/31/2018 Digoxin Ord9 DIGOXIN 0.8 NG/ML 01/31/2018 C RAP A SC [id number] Strep A Negative 11/21/2016 Thyroid Antibodies 501049 THYROGLOBULIN ANTIBODY . 11/04/2016 Thyroid Antibodies 795113 THYROGLOBULIN ANTIBODY 919 IU/mL 11/04/2016 Thyroid Antibodies 678841 THYROID PEROXIDASE (TPO) AB . 11/04/2016 Thyroid Antibodies 106308 THYROID PEROXIDASE (TPO) AB 10 IU/mL 11/04/2016 Total T3 Ord42 TT3 0.64 ng/ml 11/03/2016 Free T4 Sfn547 FREE T4 1.39 ng/dL 11/02/2016 Tsh Ord6 [...] Differential Ord2 RDW 13.8 % 05/26/2015 Pt Hwv2791 PT 25.0 seconds 05/26/2015 Pt Ihj4104 INR 2.4 05/26/2015 Pt Vuy4768 Low Intensity - 1.5-2.0 05/26/2015 Pt Ptf0559 Mod intensity - 2.0-3.0 05/26/2015 Pt Cwg9772 Hi intensity - 3.0-4.0 05/26/2015 Uric Acid [...] Digoxin Ord9 DIGOXIN 0.6 NG/ML 05/06/2015 Pt Ggd8843 PT 23.3 seconds 05/06/2015 Pt Ktj8837 INR 2.1 05/06/2015 Pt Cpu1394 Low Intensity - 1.5-2.0 05/06/2015 Pt Huf3836 Mod intensity - 2.0-3.0 05/06/2015 Pt Uet8862 Hi intensity - 3.0-4.0 05/06/2015 Free T4 Luq197 FREE T4 1.65 ng/dL 05/06/2015 Comp Metabolic Eqb620 NA 132 mEq/L 05/06/2015 Comp Metabolic Ywm861 K 4.1 mEq/L 05/06/2015 Comp Metabolic Xdn072 CL 98 mEq/L 05/06/2015 Comp Metabolic Xlw592 CO2 27.0 mEq/L 05/06/2015 Comp Metabolic Pzn294 ANION GAP 11 05/06/2015 Comp Metabolic Rvr436 GLUCOSE 71 mg/dL 05/06/2015 Comp Metabolic Ozv089 Creat 0.7 mg/dL 05/06/2015 Comp Metabolic Asb508 eGFR 82 ml/min/1.73m2 05/06/2015 Comp Metabolic Hqr320 BUN 16 mg/dL 05/06/2015 Comp Metabolic Zhl263 B/C Ratio 22.2 Ratio 05/06/2015 Comp Metabolic Hmv017 CALCIUM 9.4 mg/dL 05/06/2015 Comp Metabolic Tqc626 ALK PHOS 60 U/L 05/06/2015 Comp Metabolic Yve345 AST(SGOT) 22 U/L 05/06/2015 Comp Metabolic Pko362 ALT(SGPT) 24 U/L 05/06/2015 Comp Metabolic Ywf024 BILI T 0.8 mg/dL 05/06/2015 Comp Metabolic Quw909 ALBUMIN 4.3 g/dL 05/06/2015 Comp Metabolic Wyn137 TPRO 7.6 g/dL 05/06/2015 Comp Metabolic Ack037 GLOB 3.3 g/dL 05/06/2015 Comp Metabolic Zws151 A/G Ratio 1.3 Ratio 05/06/2015 Comp Metabolic Qqf927 Osmo 264 mOsmo 05/06/2015 DIGOXIN 6814377 DIGOXIN 1.1 NG/ML 05/15/2013 PT/MC 3322135 PRO TIME 21.7 SEC 05/15/2013 PT/MC 9470987 INR MCMC 2.0 05/15/2013 CHEM 14 7772372 AST 24 U/L 04/23/2013 CHEM 14 2103651 ALT 31 IU/L 04/23/2013 CHEM 14 4752769 BUN 13 MG/DL 04/23/2013 CHEM 14 7100531 ALBUMIN 4.1 GM/DL 04/23/2013 CHEM 14 6859820 CHLORIDE 103 MMOL/L 04/23/2013 CHEM 14 0711605 BILI TOT 0.5 MG/DL 04/23/2013 CHEM 14 4013180 ALK PHOS 44 U/L 04/23/2013 CHEM 14 1957204 SODIUM 137 MMOL/L 04/23/2013 CHEM 14 8146479 CREATININE 0.61 MG/DL 04/23/2013 CHEM 14 5718580 CALCIUM 9.5 MG/DL 04/23/2013 CHEM 14 7766286 POTASSIUM 4.0 MMOL/L 04/23/2013 CHEM 14 0974799 PROT TOT 6.6 GM/DL 04/23/2013 CHEM 14 9548127 GLUCOSE 99 MG/DL 04/23/2013 CHEM 14 5280162 BICARB 27 MMOL/L 04/23/2013 CHEM 14 8649195 ANION GAP 7 MEQ/L 04/23/2013 GFR CALC 0860365 GFR AA >60 ML/MIN 04/23/2013 GFR CALC 4143714 GFR NON-AA >60 ML/MIN 04/23/2013 TSH 1251767 TSH 4.204 uIU/ML 04/23/2013 CBC 7247583 WBC 6.7 10e9/L 04/23/2013 CBC 3410441 RBC 4.19 10e12/L 04/23/2013 CBC 1960110 HGB 13.2 g/dL 04/23/2013 CBC 5742218 HCT DET 39.2 % 04/23/2013 CBC 5079157 MCV 93.6 fL 04/23/2013 CBC 6448390 MCH 31.5 pg 04/23/2013 CBC 1170472 MCHC 33.7 g/dL 04/23/2013 CBC 0442159 PLT 202 10e9/L 04/23/2013 CBC 8350859 MPV 11.4 fL 04/23/2013 CBC 6484047 YANIRA % 70.5 % 04/23/2013 CBC 9917203 LY % 19.6 % 04/23/2013 CBC 2915008 MON % 8.2 % 04/23/2013 CBC 6408522 EOS % 1.6 % 04/23/2013 CBC 4105502 BASO % 0.1 % 04/23/2013 CBC 5324704 RDW 13.7 % 04/23/2013 CBC 1199027 ABS YANIRA 4.72 10e9/L 04/23/2013 CBC 9018139 ABS LYMPH 1.31 10e9/L 04/23/2013 CBC 9467093 ABS MONO 0.55 10e9/L 04/23/2013 CBC 5955403 ABS EOS 0.11 10e9/L 04/23/2013 CBC 7711446 ABS BASO 0.01 10e9/L 04/23/2013 CBC 0632946 RDW-SD 45.7 fL 04/23/2013 PT/MC 5764703 PRO TIME 13.4 SEC 12/17/2012 PT/MC 2005431 INR MCMC 1.0 12/17/2012 PT/MC 3426089 PRO TIME 16.6 SEC 12/14/2012 PT/MC 0251359 INR MCMC 1.4 12/14/2012 PT/MC 1358876 PRO TIME 27.2 SEC 12/11/2012 PT/MC 0208297 INR MCMC 2.6 12/11/2012 DIGOXIN 1240148 DIGOXIN 2.1 NG/ML 03/08/2012 GFR CALC 6452989 GFR AA >60 ML/MIN 03/08/2012 GFR CALC 8027749 GFR NON-AA >60 ML/MIN 03/08/2012 CHEM 14 20280112 AST 16 U/L 03/08/2012 CHEM 14 20280112 ALT 14 IU/L 03/08/2012 CHEM 14 1455681 BUN 10 MG/DL 03/08/2012 CHEM 14 3655806 ALBUMIN 4.2 GM/DL 03/08/2012 CHEM 14 9117245 CHLORIDE 100 MMOL/L 03/08/2012 CHEM 14 9569374 BILI TOT 0.5 MG/DL 03/08/2012 CHEM 14 7673295 ALK PHOS 59 U/L 03/08/2012 CHEM 14 3947813 SODIUM 136 MMOL/L 03/08/2012 CHEM 14 8164100 CREATININE 0.65 MG/DL 03/08/2012 CHEM 14 7531410 CALCIUM 9.4 MG/DL 03/08/2012 CHEM 14 5817125 POTASSIUM 3.9 MMOL/L 03/08/2012 CHEM 14 0037959 PROT TOT 6.7 GM/DL 03/08/2012 CHEM 14 4242750 GLUCOSE 90 MG/DL 03/08/2012 CHEM 14 3180008 BICARB 30 MMOL/L 03/08/2012 CHEM 14 0703891 ANION GAP 6 MEQ/L 03/08/2012 CHEM 14 1854509 AST 16 U/L 11/23/2011 CHEM 14 7597988 ALT 14 IU/L 11/23/2011 CHEM 14 9974923 BUN 11 MG/DL 11/23/2011 CHEM 14 6154480 ALBUMIN 4.1 GM/DL 11/23/2011 CHEM 14 5068432 CHLORIDE 100 MMOL/L 11/23/2011 CHEM 14 1032697 BILI TOT 0.5 MG/DL 11/23/2011 CHEM 14 4194815 ALK PHOS 50 U/L 11/23/2011 CHEM 14 5084616 SODIUM 135 MMOL/L 11/23/2011 CHEM 14 3403107 CREATININE 0.57 MG/DL 11/23/2011 CHEM 14 4497423 CALCIUM 9.1 MG/DL 11/23/2011 CHEM 14 8652152 POTASSIUM 4.5 MMOL/L 11/23/2011 CHEM 14 6690679 PROT TOT 6.5 GM/DL 11/23/2011 CHEM 14 7937881 GLUCOSE 89 MG/DL 11/23/2011 CHEM 14 5330747 BICARB 28 MMOL/L 11/23/2011 CHEM 14 4344701 ANION GAP 7 MEQ/L 11/23/2011 GFR CALC 2057834 GFR AA >60 ML/MIN 11/23/2011 GFR CALC 4290320 GFR NON-AA >60 ML/MIN 11/23/2011 CBC 7515526 WBC 5.1 10e9/L 11/23/2011 CBC 0850491 RBC 4.06 10e12/L 11/23/2011 CBC 0822281 HGB 12.5 g/dL 11/23/2011 CBC 8414234 HCT DET 37.3 % 11/23/2011 CBC 3173097 MCV 91.9 fL 11/23/2011 CBC 3269712 MCH 30.8 pg 11/23/2011 CBC 9159366 MCHC 33.5 g/dL 11/23/2011 CBC 3337138 PLT 222 10e9/L 11/23/2011 CBC 1078934 MPV 10.8 fL 11/23/2011 CBC 4530821 YANIRA % 64.2 % 11/23/2011 CBC 9642276 LY % 22.3 % 11/23/2011 CBC 4562720 MON % 11.3 % 11/23/2011 CBC 5973246 EOS % 1.8 % 11/23/2011 CBC 3753620 BASO % 0.4 % 11/23/2011 CBC 9238150 RDW 13.6 % 11/23/2011 CBC 3727708 ABS YANIRA 3.27 10e9/L 11/23/2011 CBC 6857191 ABS LYMPH 1.14 10e9/L 11/23/2011 CBC 1754536 ABS MONO 0.58 10e9/L 11/23/2011 CBC 6146880 ABS EOS 0.09 10e9/L 11/23/2011 CBC 6675290 ABS BASO 0.02 10e9/L 11/23/2011 CBC 6701007 RDW-SD 44.5 fL 11/23/2011 UA 91747 Specific [place] 1.005 03/04/2011 UA 46657 PH 6 03/04/2011 UA 93624 GLUCOSE N 03/04/2011 UA 58705 Protein N 03/04/2011 UA 39271 Blood ++ 03/04/2011 UA 04064 Bilirubin N 03/04/2011 UA 66279 Ketones N 03/04/2011 UA 97461 Urobilinogen N 03/04/2011 UA 99176 Nitrite N 03/04/2011 UA 90844 Leukocytes N 03/04/2011 URINALYSIS NONAUTO W/O SCOPE 56415 Specific [place] 1.010 DateTime(Free Text in Aprima) URINALYSIS NONAUTO W/O SCOPE 54387 PH 6.5 DateTime(Free Text in Aprima) URINALYSIS NONAUTO W/O SCOPE 03578 GLUCOSE neg DateTime(Free Text in Aprima) URINALYSIS NONAUTO W/O SCOPE 91765 Protein neg DateTime(Free Text in Aprima) URINALYSIS NONAUTO W/O SCOPE 46458 Blood 3+ DateTime(Free Text in Aprima) URINALYSIS NONAUTO W/O SCOPE 50760 Bilirubin neg DateTime(Free Text in Aprima) URINALYSIS NONAUTO W/O SCOPE 50421 Ketones neg DateTime(Free Text in Aprima) URINALYSIS NONAUTO W/O SCOPE 56076 Urobilinogen neg DateTime(Free Text in Aprima) URINALYSIS NONAUTO W/O SCOPE 33092 Nitrite neg DateTime(Free Text in Aprima) URINALYSIS NONAUTO W/O SCOPE 30285 Leukocytes neg DateTime(Free Text in Aprima) URINALYSIS NONAUTO W/O SCOPE 27080 Specific [place] 1.010 DateTime(Free Text in Aprima) URINALYSIS NONAUTO W/O SCOPE 44062 PH 5 DateTime(Free Text in Aprima) URINALYSIS NONAUTO W/O SCOPE 44075 GLUCOSE neg DateTime(Free Text in Aprima) URINALYSIS NONAUTO W/O SCOPE 84677 Protein neg DateTime(Free Text in Aprima) URINALYSIS NONAUTO W/O SCOPE 47584 Blood 3+ DateTime(Free Text in Aprima) URINALYSIS NONAUTO W/O SCOPE 28126 Bilirubin neg DateTime(Free Text in Aprima) URINALYSIS NONAUTO W/O SCOPE 38370 Ketones neg DateTime(Free Text in Aprima) URINALYSIS NONAUTO W/O SCOPE 56175 Urobilinogen neg DateTime(Free Text in Aprima) URINALYSIS NONAUTO W/O SCOPE 17666 Nitrite neg DateTime(Free Text in Aprima) URINALYSIS NONAUTO W/O SCOPE 08200 Leukocytes neg DateTime(Free Text in Aprima) URINALYSIS NONAUTO W/O SCOPE 25704 Specific [place] 1.005 DateTime(Free Text in Aprima) URINALYSIS NONAUTO W/O SCOPE 44233 PH 8.5 DateTime(Free Text in Aprima) URINALYSIS NONAUTO W/O SCOPE 15677 GLUCOSE neg DateTime(Free Text in Aprima) URINALYSIS NONAUTO W/O SCOPE 99673 Protein neg DateTime(Free Text in Aprima) URINALYSIS NONAUTO W/O SCOPE 09120 Blood 1+ DateTime(Free Text in Aprima) URINALYSIS NONAUTO W/O SCOPE 71677 Bilirubin neg DateTime(Free Text in Aprima) URINALYSIS NONAUTO W/O SCOPE 00674 Ketones neg DateTime(Free Text in Aprima) URINALYSIS NONAUTO W/O SCOPE 86829 Urobilinogen neg DateTime(Free Text in Aprima) URINALYSIS NONAUTO W/O SCOPE 90411 Nitrite neg DateTime(Free Text in Aprima) URINALYSIS NONAUTO W/O SCOPE 10114 Leukocytes neg DateTime(Free Text in Aprima) URINALYSIS NONAUTO W/O SCOPE 11527 Specific [place] 1.005 DateTime(Free Text in Aprima) URINALYSIS NONAUTO W/O SCOPE 60674 PH 7 DateTime(Free Text in Aprima) URINALYSIS NONAUTO W/O SCOPE 47862 GLUCOSE neg DateTime(Free Text in Aprima) URINALYSIS NONAUTO W/O SCOPE 82232 Protein neg DateTime(Free Text in Aprima) URINALYSIS NONAUTO W/O SCOPE 87304 Blood large DateTime(Free Text in Aprima) URINALYSIS NONAUTO W/O SCOPE 79381 Bilirubin neg DateTime(Free Text in Aprima) URINALYSIS NONAUTO W/O SCOPE 34416 Ketones neg DateTime(Free Text in Aprima) URINALYSIS NONAUTO W/O SCOPE 14605 Urobilinogen 0.2 DateTime(Free Text in Aprima) URINALYSIS NONAUTO W/O SCOPE 94463 Nitrite neg DateTime(Free Text in Aprima) URINALYSIS NONAUTO W/O SCOPE 52579 Leukocytes neg DateTime(Free Text in Aprima) URINALYSIS NONAUTO W/O SCOPE 77149 Specific [place] 1.005 DateTime(Free Text in Aprima) URINALYSIS NONAUTO W/O SCOPE 26226 PH 7.5 DateTime(Free Text in Aprima) URINALYSIS NONAUTO W/O SCOPE 25559 GLUCOSE DateTime(Free Text in Aprima) URINALYSIS NONAUTO W/O SCOPE 29264 Protein trace DateTime(Free Text in Aprima) URINALYSIS NONAUTO W/O SCOPE 53995 Blood 4+ DateTime(Free Text in Aprima) URINALYSIS NONAUTO W/O SCOPE 67639 Bilirubin DateTime(Free Text in Aprima) URINALYSIS NONAUTO W/O SCOPE 18082 Ketones DateTime(Free Text in Aprima) URINALYSIS NONAUTO W/O SCOPE 25858 Urobilinogen DateTime(Free Text in Aprima) URINALYSIS NONAUTO W/O SCOPE 41115 Nitrite DateTime(Free Text in Aprima) URINALYSIS NONAUTO W/O SCOPE 69949 Leukocytes trace DateTime(Free Text in Apr) Review of Systems System Result Effective Dates Constitutional No recent illness 08/14/2018 Constitutional No [...] time 01/31/2018 None Full Exam - General 1997 Psychiatric appearance Overall: well-groomed, good eye contact [...] FLU VACC PRSV FREE INC ANTIG CPT-4: 44009 03/27/2017 PPPS, SUBSEQ VISIT CPT- 4: G0439 01/23/2017 URINALYSIS NONAUTO W/O SCOPE CPT-4: 82827 05/17/2016 ADMIN INFLUENZA VIRUS VAC CPT-4: G0008 03/24/2016 FLU VACC PRSV FREE INC ANTIG CPT-4: 86562 03/24/2016 ADMIN PNEUMOCOCCAL VACCINE SNOMED CT: 38877886 CPT-4: G0009 05/13/2015 PNEUMOCOCCAL VACC [address]: 63872006 CPT-4: 39502 05/13/2015 Pneumococcal Polysaccharide Vaccine, 23-Valent, Ad Assigned to/Mela Bledsoe CPT-4: [id number] 07/11/2014 ADMIN PNEUMOCOCCAL VACCINE SNOMED CT: 67372015 CPT-4: G0009 07/11/2014 URINALYSIS NONAUTO W/O SCOPE CPT-4: 70169 05/14/2014 URINALYSIS NONAUTO W/O SCOPE CPT-4: 61491 05/06/2014 URINALYSIS NONAUTO W/O SCOPE CPT-4: 05129 04/29/2014 ADMIN INFLUENZA VIRUS VAC CPT-4: G0008 03/20/2014 FLU VAC NO PRSV 4 SCOTT 3 YRS+ Assigned to/Mela Bledsoe CPT-4: [id number] 03/20/2014 URINALYSIS NONAUTO W/O SCOPE CPT-4: 57061 07/29/2013 URINALYSIS NONAUTO W/O SCOPE CPT-4: 49898 07/01/2013 URINALYSIS NONAUTO W/O SCOPE CPT-4: 10251 06/20/2013 ROUTINE VENIPUNCTURE CPT- 4: 34695 05/15/2013 ROUTINE VENIPUNCTURE CPT- 4: 89158 04/23/2013 ADMIN INFLUENZA VIRUS VAC CPT-4: G0008 04/23/2013 FLULAVAL VACC, 3 YRS & >, IM CPT-4: Q2036 04/23/2013 ROUTINE VENIPUNCTURE CPT- 4: 07362 12/17/2012 ROUTINE VENIPUNCTURE CPT- 4: 91098 12/14/2012 ROUTINE VENIPUNCTURE CPT- 4: 55837 12/11/2012 PRESCRIP TRANSMIT VIA ERX SY CPT-4: G8553 12/11/2012 PRESCRIP TRANSMIT VIA ERX SY CPT-4: G8553 10/30/2012 URINALYSIS NONAUTO W/O SCOPE CPT-4: 78578 09/13/2012 ADMIN INFLUENZA VIRUS VAC CPT-4: G0008 04/18/2012 FLULAVAL VACC, 3 YRS & >, IM CPT-4: Q2036 04/18/2012 URINALYSIS NONAUTO W/O SCOPE CPT-4: 83134 03/13/2012 ROUTINE VENIPUNCTURE CPT- 4: 27975 03/08/2012 URINALYSIS NONAUTO W/O SCOPE CPT-4: 20816 02/13/2012 PRESCRIP TRANSMIT VIA ERX SY CPT-4: G8553 02/13/2012 ROCEPHIN, PER 250 MG CPT- 4: J0696 11/23/2011 ROUTINE VENIPUNCTURE CPT- 4: 92368 11/23/2011 URINALYSIS NONAUTO W/O SCOPE CPT-4: 84732 11/23/2011 PRESCRIP TRANSMIT VIA ERX SY CPT-4: G8553 11/23/2011 REMOVE IMPACTED EAR WAX UNI CPT-4: 19896 10/17/2011 PRESCRIP TRANSMIT VIA ERX SY CPT-4: G8553 10/03/2011 PRESCRIP TRANSMIT VIA ERX SY CPT-4: G8553 08/08/2011 URINALYSIS NONAUTO W/O SCOPE CPT-4: 74999 03/15/2011 URINALYSIS NONAUTO W/O SCOPE CPT-4: 95281 03/04/2011 THER/PROPH/DIAG INJ SC/IM CPT-4: 54026 03/04/2011 ROCEPHIN, PER 250 MG CPT- 4: J0696 03/04/2011 Vital Signs Date Vital 08/14/2018 Blood Pressure 1: 136/68 Code: 8480-6 BMI: 21.1 Code: 54589-3 Heart Rate 1: 92 bpm Height: 5' Weight: 108 lbs 07/26/2018 Blood Pressure 1: 128/76 Code: 8480-6 BMI: 21.1 Code: 34889-8 Heart Rate 1: 88 bpm Height: 5' Weight: 108 lbs 06/04/2018 Blood Pressure 1: 124/72 Code: 8480-6 BMI: 21.3 Code: 25854-1 Heart Rate 1: 98 bpm Height: 5' Weight: 109 lbs 01/31/2018 Blood Pressure 1: 116/68 Code: 8480-6 BMI: 21.1 Code: 06788-9 Heart Rate 1: 89 bpm Height: 5' SpO2: 98% Weight: 108 lbs 01/17/2018 Blood Pressure 1: 134/74 Code: 8480-6 BMI: 21.3 Code: 62685-3 Heart Rate 1: 74 bpm Height: 5' SpO2: 96% Waist Measure (cm): 71 cm Weight: 109 lbs 12/14/2017 Blood Pressure 1: 150/78 Code: 8480-6 BMI: 21.5 Code: 69020-5 Heart Rate 1: 77 bpm Height: 5' SpO2: 98% Temperature: 36.7 (C) / 98.1 (F) Weight: 110 lbs 12/07/2017 Blood Pressure 1: 134/70 Code: 8480-6 Heart Rate 1: 76 bpm Height: SpO2: 98% Temperature: 36.8 (C) / 98.2 (F) Weight: 11/14/2017 Blood Pressure 1: 152/84 Code: 8480-6 BMI: 21.9 Code: 28583-0 Heart Rate 1: 95 bpm Height: 5' SpO2: 93% Weight: 112 lbs 03/27/2017 Blood Pressure 1: 122/70 Code: 8480-6 BMI: 21.3 Code: 19955-7 Heart Rate 1: 75 bpm Height: 5' Weight: 109 lbs 01/23/2017 BMI: 21.5 Code: 54234-4 Height: 5' Weight: 110 lbs 01/19/2017 Blood Pressure 1: 112/60 Code: 8480-6 BMI: 21.5 Code: 72931-6 Heart Rate 1: 54 bpm Height: 5' SpO2: 97% Weight: 110 lbs 11/29/2016 Blood Pressure 1: 126/68 Code: 8480-6 Height: 5' Weight: 11/23/2016 Blood Pressure 1: 130/72 Code: 8480-6 BMI: 21.9 Code: 11988-2 Heart Rate 1: 48 bpm Height: 5' SpO2: 97% Temperature: 36.7 (C) / 98.0 (F) Weight: 112 lbs 11/21/2016 Blood Pressure 1: 134/76 Code: 8480-6 BMI: 21.9 Code: 21559-7 Heart Rate 1: 41 bpm Height: 5' SpO2: 94% Temperature: 36.9 (C) / 98.4 (F) Weight: 112 lbs 11/08/2016 Blood Pressure 1: 126/74 Code: 8480-6 Heart Rate 1: 82 bpm Height: 5' SpO2: 94% Weight: 11/02/2016 Blood Pressure 1: 112/66 Code: 8480-6 Heart Rate 1: 72 bpm Height: 5' SpO2: 95% Weight: 10/27/2016 Blood Pressure 1: 130/64 Code: 8480-6 BMI: 21.7 Code: 20623-3 Heart Rate 1: 81 bpm Height: 5' SpO2: 96% Weight: 111 lbs 08/31/2016 Blood Pressure 1: 132/72 Code: 8480-6 BMI: 22.5 Code: 79667-3 Heart Rate 1: 66 bpm Height: 5' Weight: 115 lbs 07/27/2016 Blood Pressure 1: 166/74 Code: 8480-6 BMI: 23.2 Code: 53663-1 Heart Rate 1: 48 bpm Height: 5' SpO2: 90% Temperature: 36.8 (C) / 98.2 (F) Weight: 119 lbs 06/23/2016 Blood Pressure 1: 128/70 Code: 8480-6 BMI: 22.3 Code: 02748-3 Heart Rate 1: 75 bpm Height: 5' SpO2: 97% Weight: 114 lbs 06/09/2016 BMI: 22.7 Code: 78476-0 Heart Rate 1: 73 bpm Height: 5' SpO2: 97% Weight: 116 lbs 05/25/2016 Blood Pressure 1: 138/62 Code: 8480-6 BMI: 22.8 Code: 59596-0 Heart Rate 1: 76 bpm Height: 5' Weight: 117 lbs 05/17/2016 Blood Pressure 1: 116/70 Code: 8480-6 BMI: 22.8 Code: 10649-4 Heart Rate 1: 74 bpm Height: 5' SpO2: 94% Weight: 117 lbs 03/24/2016 Blood Pressure 1: 154/78 Code: 8480-6 BMI: 22.5 Code: 21304-2 Heart Rate 1: 78 bpm Height: 5' SpO2: 97% Weight: 115 lbs 02/02/2016 Blood Pressure 1: 132/70 Code: 8480-6 BMI: 22.3 Code: 45035-0 Heart Rate 1: 74 bpm Height: 5' SpO2: 94% Weight: 114 lbs 2016 Blood Pressure 1: 120/62 Code: 8480-6 BMI: 22.0 Code: 69607-4 Heart Rate 1: 68 bpm Height: 5' Weight: 112 lbs 8 oz 12/21/2015 Blood Pressure 1: 122/82 Code: 8480-6 BMI: 21.9 Code: 53130-9 Heart Rate 1: 83 bpm Height: 5' SpO2: 93% Temperature: 37.1 (C) / 98.7 (F) Weight: 112 lbs 11/03/2015 Blood Pressure 1: 122/72 Code: 8480-6 BMI: 22.4 Code: 51892-8 Heart Rate 1: 62 bpm Height: 5' Weight: 114 lbs 8 oz 10/19/2015 Blood Pressure 1: 138/62 Code: 8480-6 BMI: 21.1 Code: 71861-2 Heart Rate 1: 79 bpm Height: 5' Weight: 108 lbs 10/13/2015 Blood Pressure 1: 120/62 Code: 8480-6 BMI: 21.0 Code: 98724-7 Heart Rate 1: 76 bpm Height: 5' SpO2: 98% Weight: 108 lbs 09/29/2015 Blood Pressure 1: 130/70 Code: 8480-6 BMI: 20.2 Code: 26331-1 Heart Rate 1: 72 bpm Height: 5' Weight: 104 lbs 09/15/2015 Blood Pressure 1: 128/78 Code: 8480-6 BMI: 19.9 Code: 84046-3 Heart Rate 1: 72 bpm Height: 5' Weight: 102 lbs 8 oz 09/01/2015 Blood Pressure 1: 128/68 Code: 8480-6 BMI: 19.8 Code: 17242-8 Height: 5' Weight: 102 lbs 05/26/2015 Blood Pressure 1: 140/68 Code: 8480-6 BMI: 19.0 Code: 81386-7 Heart Rate 1: 70 bpm Height: 5' Weight: 98 lbs 05/21/2015 Blood Pressure 1: 140/78 Code: 8480-6 BMI: 19.2 Code: 57870-6 Heart Rate 1: 85 bpm Height: 5' SpO2: 95% Weight: 99 lbs 05/07/2015 Blood Pressure 1: 140/82 Code: 8480-6 BMI: 19.0 Code: 65540-8 Heart Rate 1: 76 bpm Height: 5' Weight: 98 lbs 03/23/2015 Blood Pressure 1: 142/60 Code: 8480-6 BMI: 18.6 Code: 61867-2 Heart Rate 1: 52 bpm Height: 5' Weight: 96 lbs 03/09/2015 Blood Pressure 1: 138/74 Code: 8480-6 BMI: 18.8 Code: 60898-9 Heart Rate 1: 60 bpm Height: 5' Weight: 97 lbs 10/30/2014 Blood Pressure 1: 112/82 Code: 8480-6 BMI: 19.0 Code: 44804-4 Heart Rate 1: 64 bpm Height: 5' Weight: 98 lbs 07/11/2014 Blood Pressure 1: 146/70 Code: 8480-6 BMI: 18.8 Code: 74014-9 Heart Rate 1: 68 bpm Height: 5' Weight: 97 lbs 05/20/2014 Blood Pressure 1: 142/76 Code: 8480-6 BMI: 18.6 Code: 72109-1 Heart Rate 1: 78 bpm Height: 5' Weight: 96 lbs 04/29/2014 Blood Pressure 1: 138/62 Code: 8480-6 BMI: 18.3 Code: 44487-2 Heart Rate 1: 80 bpm Height: 5' Weight: 94 lbs 8 oz 03/20/2014 Blood Pressure 1: 142/68 Code: 8480-6 BMI: 18.6 Code: 05771-2 Heart Rate 1: 96 bpm Height: 5' Weight: 96 lbs 03/05/2014 Blood Pressure 1: 122/72 Code: 8480-6 BMI: 18.8 Code: 35869-2 Heart Rate 1: 82 bpm Height: 5' SpO2: 97% Weight: 97 lbs 01/29/2014 Blood Pressure 1: 124/78 Code: 8480-6 BMI: 18.8 Code: 05528-5 Heart Rate 1: 60 bpm Height: 5' Weight: 97 lbs 01/14/2014 Blood Pressure 1: 120/58 Code: 8480-6 BMI: 19.2 Code: 31941-6 Heart Rate 1: 56 bpm Height: 5' Temperature: 36.9 (C) / 98.4 (F) Weight: 99 lbs 12/25/2013 Blood Pressure 1: 118/78 Code: 8480-6 BMI: 19.2 Code: 77944-7 Heart Rate 1: 68 bpm Height: 5' Weight: 99 lbs 11/27/2013 Blood Pressure 1: 102/68 Code: 8480-6 BMI: 19.4 Code: 05095-1 Heart Rate 1: 56 bpm Height: 5' Weight: 100 lbs 09/12/2013 Blood Pressure 1: 142/62 Code: 8480-6 BMI: 19.7 Code: 33732-0 Heart Rate 1: 72 bpm Height: 5'1" Weight: 104 lbs 08/15/2013 Blood Pressure 1: 152/92 Code: 8480-6 Heart Rate 1: 96 bpm Weight: 102 lbs 08/01/2013 Blood Pressure 1: 122/68 Code: 8480-6 BMI: 19.1 Code: 35092-0 Heart Rate 1: 68 bpm Height: 5'1" Weight: 101 lbs 07/01/2013 Blood Pressure 1: 130/72 Code: 8480-6 BMI: 19.5 Code: 27847-2 Heart Rate 1: 80 bpm Height: 5'1" Temperature: 36.1 (C) / 97.0 (F) Weight: 103 lbs 05/29/2013 Blood Pressure 1: 126/72 Code: 8480-6 BMI: 19.3 Code: 52913-3 Heart Rate 1: 80 bpm Height: 5'1" Weight: 102 lbs 05/15/2013 Blood Pressure 1: 156/74 Code: 8480-6 BMI: 19.3 Code: 33880-8 Heart Rate 1: 88 bpm Height: 5'1" Weight: 102 lbs 04/23/2013 Blood Pressure 1: 140/82 Code: 8480-6 BMI: 19.3 Code: 90232-7 Heart Rate 1: 72 bpm Height: 5'1" Weight: 102 lbs 03/21/2013 Blood Pressure 1: 142/74 Code: 8480-6 Heart Rate 1: 92 bpm Weight: 103 lbs 01/16/2013 Blood Pressure 1: 120/56 Code: 8480-6 BMI: 20.0 Code: 29919-2 Heart Rate 1: 72 bpm Height: 5'1" Weight: 106 lbs 12/19/2012 Blood Pressure 1: 118/66 Code: 8480-6 Heart Rate 1: 84 bpm Weight: 12/10/2012 Blood Pressure 1: 132/62 Code: 8480-6 Heart Rate 1: 64 bpm Weight: 103 lbs 10/30/2012 Blood Pressure 1: 122/66 Code: 8480-6 BMI: 19.9 Code: 87609-4 Heart Rate 1: 61 bpm Height: 5'1" [...] 1: 118/72 Code: 8480-6 BMI: 21.0 Code: 60574-4 Heart Rate 1: 66 bpm Height: 5'1" Respiratory Rate: 16 bpm Weight: 111 lbs 2012 Blood Pressure 1: 122/62 Code: 8480-6 Heart Rate 1: 68 bpm Weight: 110 lbs 12/01/2011 Blood Pressure 1: 150/60 Code: 8480-6 BMI: 20.8 Code: 93636-1 Heart Rate 1: 60 bpm Height: 5'1" Respiratory Rate: 16 bpm Weight: 110 lbs 11/23/2011 Blood Pressure 1: 170/68 Code: 8480-6 BMI: 21.1 Code: 73033-9 Heart Rate 1: 64 bpm Height: 5'1" Temperature: 36.3 (C) / 97.3 (F) Weight: 111 lbs 8 oz 10/17/2011 Blood Pressure 1: 148/62 Code: 8480-6 Heart Rate 1: 74 bpm 10/03/2011 Blood Pressure 1: 102/48 Code: 8480-6 BMI: 21.4 Code: 70827-8 Heart Rate 1: 76 bpm Height: 5'1" Respiratory Rate: 16 bpm Weight: 113 lbs 08/08/2011 Blood Pressure 1: 128/60 Code: 8480-6 Heart Rate 1: 80 bpm Respiratory Rate: 16 bpm Weight: 113 lbs 05/09/2011 Blood Pressure 1: 130/62 Code: 8480-6 BMI: 20.7 Code: 57368-5 Heart Rate 1: 64 bpm Height: 5'1" Respiratory Rate: 16 bpm Weight: 109 lbs 8 oz 03/29/2011 Blood Pressure 1: 120/62 Code: 8480-6 BMI: 20.2 Code: 94742-6 Heart Rate 1: 66 bpm Height: 5'1" Respiratory Rate: 12 bpm Weight: 107 lbs 03/15/2011 Blood Pressure 1: 120/64 Code: 8480-6 BMI: 19.8 Code: 56870-7 Heart Rate 1: 76 bpm Height: 5'1" Respiratory Rate: 16 bpm Weight: 105 lbs Functional Status No Functional Status data History of Present Illness Symptom Name Status Result Effective Date Notes Quality raised 08/14/2018 None Onset and Resolution [...] contacts 03/20/2014 sat next to neighbor in [place] who had tonsillitis sore throat Pertinent Findings [...] data Encounters Encounter Performer Location Codes Date ([id number]) 19910 EST. PATIENT, LEVEL IV Diagnosis: Raynaud's syndrome without gangrene[ICD10: I73.00] Diagnosis: Pain in right toe(s)[ICD10: M79.674] Diagnosis: Chronic atrial fibrillation[ICD10: I48.2] Karma Bahena MD, [facility] CPT-4: 92073 08/14/2018 ([id number]) 35185 EST. PATIENT, LEVEL IV Diagnosis: Chronic atrial fibrillation[ICD10: I48.2] Diagnosis: Sebaceous cyst[ICD10: L72.3] Diagnosis: Raynaud's syndrome without gangrene[ICD10: I73.00] Karma Bahena MD, [facility] CPT-4: 15312 07/26/2018 ([id number]) 42636 EST. PATIENT, LEVEL IV Diagnosis: Essential (primary) hypertension[ICD10: I10] Diagnosis: Atrophy of thyroid (acquired)[ICD10: E03.4] Diagnosis: Gastro-esophageal reflux disease without esophagitis[ICD10: K21.9] Karma Bahena MD, [facility] CPT-4: 90358 06/04/2018 [id number]) 28213 EST. PATIENT, LEVEL IV Diagnosis: Essential (primary) hypertension[ICD10: I10] Diagnosis: Atrophy of thyroid (acquired)[ICD10: E03.4] Diagnosis: Other custodial (current) drug therapy[ICD10: Z79.899] Karma Bahena MD, [facility] CPT-4: 36024 01/31/2018 ([id number]) 53221 EST. PATIENT, LEVEL IV Diagnosis: Essential (primary) hypertension[ICD10: I10] Diagnosis: Chronic atrial fibrillation[ICD10: I48.2] Diagnosis: Allergic rhinitis due to pollen[ICD10: J30.1] Diagnosis: Cough[ICD10: R05] Karma Bahena MD, [facility] CPT-4: 31587 12/14/2017 16247 EST. PATIENT, LEVEL IV Diagnosis: Other allergic rhinitis[ICD10: J30.89] Katharine Bahena MD, [facility] CPT- 4: 62839 12/07/2017 ([id number]) 38639 EST. PATIENT, LEVEL IV Diagnosis: Essential (primary) hypertension[ICD10: I10] Diagnosis: Chronic atrial fibrillation[ICD10: I48.2] Diagnosis: Atrophy of thyroid (acquired)[ICD10: E03.4] Karma Bahena MD, [facility] CPT-4: 92637 11/14/2017 ([id number]) 06746 EST. PATIENT, LEVEL IV Diagnosis: Essential (primary) hypertension[ICD10: I10] Diagnosis: Localized edema[ICD10: R60.0] Diagnosis: Encounter for immunization[ICD10: Z23] Diagnosis: Age-related osteoporosis without current pathological fracture[ICD10: M81.0] Karma Bahena MD, [facility] CPT-4: 37213 03/27/2017 ([id number]) 37872 EST. PATIENT, LEVEL IV Diagnosis: Essential (primary) hypertension[ICD10: I10] Diagnosis: Chronic atrial fibrillation[ICD10: I48.2] Diagnosis: Dysphonia[ICD10: R49.0] Karma Bahena MD, [facility] CPT-4: 81018 01/19/2017 ([id number]) Miscellaneous no charge Diagnosis: Cough[ICD10: R05] Diagnosis: Acute upper respiratory infection, unspecified[ICD10: J06.9] Laura Bahena MD, [facility] CPT-4: 35570 11/29/2016 97600 EST. PATIENT, LEVEL III Diagnosis: Cough[ICD10: R05] Diagnosis: Acute laryngopharyngitis[ICD10: J06.0] Katharine Bahena MD, [facility] CPT- 4: 17164 11/23/2016 ([id number]) 34440 EST. PATIENT, LEVEL III Diagnosis: Acute laryngopharyngitis[ICD10: J06.0] Laura Bahena MD, [facility] CPT-4: 68448 11/21/2016 ([id number]) Miscellaneous no charge Diagnosis: Laceration without foreign body of right forearm, subsequent encounter[ICD10: S51.811D] Karma Bahena MD [facility] CPT-4: 30544 11/17/2016 ([id number]) Miscellaneous no charge Diagnosis: Laceration without foreign body of right forearm, subsequent encounter[ICD10: S51.811D] Karma Bahena MD [facility] CPT-4: 92276 11/14/2016 ([id number]) Miscellaneous no charge Diagnosis: Laceration without foreign body of right forearm, subsequent encounter[ICD10: S51.811D] Karma Bahena MD [facility] CPT-4: 05817 11/11/2016 ([id number]) Miscellaneous no charge Diagnosis: Laceration without foreign body of right forearm, subsequent encounter[ICD10: S51.811D] Karma Bahena MD [facility] CPT-4: 17282 11/10/2016 ([id number]) 24032 EST. PATIENT, LEVEL II Diagnosis: Laceration without foreign body of right forearm, subsequent encounter[ICD10: S51.811D] Karma Bahena MD [facility] CPT-4: 67842 11/08/2016 ([id number]) 21631 EST. PATIENT, LEVEL IV Diagnosis: Atrophy of thyroid (acquired)[ICD10: E03.4] Diagnosis: Chronic atrial fibrillation[ICD10: I48.2] Diagnosis: Laceration without foreign body of right forearm, subsequent encounter[ICD10: S51.811D] Karma Bahena MD [facility] CPT-4: 97843 11/02/2016 ([id number]) 11133 EST. PATIENT, LEVEL III Diagnosis: Laceration without foreign body of right forearm, initial encounter[ICD10: S51.811A] Laura Bahena MD, [facility] CPT-4: 69493 10/27/2016 ([id number]) 72800 EST. PATIENT, LEVEL IV Diagnosis: Essential (primary) hypertension[ICD10: I10] Diagnosis: Chronic atrial fibrillation[ICD10: I48.2] Karma Bahena MD [facility] CPT-4: 18457 08/31/2016 ([id number]) 84997 EST. PATIENT, LEVEL IV Diagnosis: Localized edema[ICD10: R60.0] Diagnosis: Essential (primary) hypertension[ICD10: I10] Diagnosis: Abdominal distension (gaseous)[ICD10: R14.0] Karma Bahena MD, [facility] CPT-4: 37132 07/27/2016 ([id number]) 41387 EST. PATIENT, LEVEL IV Diagnosis: Essential (primary) hypertension[ICD10: I10] Diagnosis: Chronic atrial fibrillation[ICD10: I48.2] Diagnosis: Localized edema[ICD10: R60.0] Karma Bahena MD, [facility] CPT-4: 13684 06/23/2016 ([id number]) 14127 EST. PATIENT, LEVEL III Diagnosis: Localized edema[ICD10: R60.0] Karma Bahena MD, [facility] CPT-4: 94033 06/09/2016 ([id number]) 79742 EST. PATIENT, LEVEL III Diagnosis: Irritable bowel syndrome without diarrhea[ICD10: K58.9] Diagnosis: Pruritus ani[ICD10: L29.0] Karma Bahena MD, [facility] CPT-4: 09525 05/25/2016 ([id number]) 16198 EST. PATIENT, LEVEL III Diagnosis: Abdominal distension (gaseous)[ICD10: R14.0] Diagnosis: Encounter for screening mammogram for malignant neoplasm of breast[ICD10: Z12.31] Karma Bahena MD, [facility] CPT-4: 09693 05/17/2016 ([id number]) 59449 EST. PATIENT, LEVEL IV Diagnosis: Essential (primary) hypertension[ICD10: I10] Diagnosis: First degree hemorrhoids[ICD10: K64.0] Diagnosis: Encounter for immunization[ICD10: Z23] Karma Bahena MD, [facility] CPT-4: 04913 03/24/2016 ([id number]) 91044 EST. PATIENT, LEVEL III Diagnosis: Epidermal cyst[ICD10: L72.0] Diagnosis: Essential (primary) hypertension[ICD10: I10] Diagnosis: Chronic atrial fibrillation[ICD10: I48.2] Diagnosis: Other custodial (current) drug therapy[ICD10: Z79.899] Karma Bahena MD, [facility] CPT-4: 66203 02/02/2016 ([id number]) 54416 EST. PATIENT, LEVEL III Diagnosis: Acute anal fissure[ICD10: K60.0] Karma Bahena MD [facility] CPT-4: 40083 2016 ([id number]) 13890 EST. PATIENT, LEVEL III Diagnosis: Allergic rhinitis due to pollen[ICD10: J30.1] Diagnosis: Acute upper respiratory infection, unspecified[ICD10: J06.9] Laura Bahena MD, [facility] CPT-4: 22613 12/21/2015 ([id number]) 51651 EST. PATIENT, LEVEL III Diagnosis: Essential (primary) hypertension[ICD10: I10] Diagnosis: Chronic atrial fibrillation[ICD10: I48.2] Karma Bahena MD, [facility] CPT-4: 52644 11/03/2015 ([id number]) Miscellaneous no charge Diagnosis: Impacted cerumen, right ear[ICD10: H61.21] Katharine Bahena MD, [facility] CPT-4: 11052 10/19/2015 98127 EST. PATIENT, LEVEL IV Diagnosis: Impacted cerumen, right ear[ICD10: H61.21] Diagnosis: Other allergic rhinitis[ICD10: J30.89] Katharine Bahena MD, [facility] CPT- 4: 83211 10/13/2015 ([id number]) 86863 EST. PATIENT, LEVEL IV Diagnosis: Essential (primary) hypertension[ICD10: I10] Diagnosis: Chronic atrial fibrillation[ICD10: I48.2] Diagnosis: Urge incontinence[ICD10: N39.41] Diagnosis: Age-related osteoporosis without current pathological fracture[ICD10: M81.0] Karma Bahena MD, [facility] CPT-4: 37753 09/29/2015 ([id number]) 82200 EST. PATIENT, LEVEL IV Diagnosis: Essential (primary) hypertension[ICD10: I10] Diagnosis: Chronic atrial fibrillation[ICD10: I48.2] Diagnosis: Irritable bowel syndrome without diarrhea[ICD10: K58.9] Diagnosis: Unspecified hemorrhoids[ICD10: K64.9] Karma Bahena MD, [facility] CPT-4: 31510 09/15/2015 ([id number]) 67181 EST. 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 PATIENT, LEVEL III Diagnosis: Hematuria, unspecified[ICD10: R31.9] Diagnosis: Other urethritis[ICD10: N34.2] Diagnosis: Other specified noninflammatory disorders of vagina[ICD10: N89.8] Karma Bahena MD, [facility] CPT-4: 66786 05/26/2015 57332 EST. PATIENT, LEVEL IV Diagnosis: Gout, unspecified[ICD10: M10.9] Karma Bahena MD [facility] CPT-4: 25509 05/21/2015 ([id number]) 97955 EST. PATIENT, LEVEL IV Diagnosis: Chronic atrial fibrillation[ICD10: I48.2] Diagnosis: Irritable bowel syndrome without diarrhea[ICD10: K58.9] Diagnosis: Cystocele, unspecified[ICD10: N81.10] Diagnosis: Urge incontinence[ICD10: N39.41] Diagnosis: Fecal smearing[ICD10: R15.1] Diagnosis: Hypothyroidism, unspecified[ICD10: E03.9] aKrma Bahena MD, [facility] CPT-4: 27092 05/07/2015 ([id number]) 87458 EST. PATIENT, LEVEL III Diagnosis: Atrial fibrillation[ICD9: 427.31] Diagnosis: Bloating[ICD9: 787.3] Karma Bahena MD [facility] CPT-4: 46105 03/23/2015 ([id number]) 76910 EST. PATIENT, LEVEL IV Diagnosis: Abdominal pain[ICD9: 789.00] Diagnosis: Atrial fibrillation[ICD9: 427.31] Diagnosis: ENCNTR LONG-ANTICOAG USE[ICD9: V58.61] Karma Bahena MD [facility] CPT-4: 09867 03/09/2015 ([id number]) 45079 EST. PATIENT, LEVEL IV Diagnosis: HEMATURIA NOS[ICD9: 599.70] Diagnosis: Atrial fibrillation[ICD9: 427.31] Diagnosis: HYPOTHYROIDISM[ICD9: 244.9] Karma Bahena MD [facility] CPT-4: 27688 10/30/2014 ([id number]) 05449 EST. PATIENT, LEVEL IV Diagnosis: Atrial fibrillation[ICD9: 427.31] Diagnosis: ALLERGIC RHINITIS[ICD9: 477.9] Diagnosis: Need for pneumococcal vaccine[ICD9: V03.82] Diagnosis: Osteoarthritis[ICD9: 715.90] Diagnosis: Osteoporosis[ICD9: 733.00] Karma Bahena MD [facility] CPT-4: 14676 07/11/2014 ([id number]) 53551 EST. PATIENT, LEVEL III Diagnosis: Urge incontinence[ICD9: 788.31] Diagnosis: Dysuria[ICD9: 788.1] Karma Bahena MD [facility] CPT-4: 54048 05/20/2014 ([id number]) 12986 EST. PATIENT, LEVEL IV Diagnosis: Atrial fibrillation[ICD9: 427.31] Diagnosis: Hematuria[ICD9: 599.70] Diagnosis: Dysuria[ICD9: 788.1] Diagnosis: ESSENTIAL HYPERTENSION[ICD9: 401.9] Karma Bahena MD [facility] CPT- 4: 03695 04/29/2014 ([id number]) 29086 EST. PATIENT, LEVEL IV Diagnosis: ESSENTIAL HYPERTENSION[ICD9: 401.9] Diagnosis: ALLERGIC RHINITIS[ICD9: 477.9] Karma Bahena MD [facility] CPT-4: 54886 03/20/2014 ([id number]) 58536 EST. PATIENT, LEVEL IV Diagnosis: ESSENTIAL HYPERTENSION[ICD9: 401.9] Diagnosis: ATRIAL FIBRILLATION[ICD9: 427.31] Diagnosis: Irritable bowel[ICD9: 564.1] aKrma Bahena MD [facility] CPT-4: 61104 03/05/2014 ([id number]) 88891 EST. PATIENT, LEVEL IV Diagnosis: Esophageal reflux[ICD9: 530.81] Diagnosis: DIARRHEA[ICD9: 787.91] Diagnosis: ABDOM PAIN NOS SITE[ICD9: 789.00] Karma Bahena MD, [facility] CPT- 4: 91252 01/29/2014 ([id number]) 63355 EST. PATIENT, LEVEL III Diagnosis: Irritable bowel[ICD9: 564.1] Diagnosis: DIARRHEA[ICD9: 787.91] Laura Bahena MD, [facility] CPT-4: 85852 01/14/2014 ([id number]) 65383 EST. PATIENT, LEVEL IV Diagnosis: ESSENTIAL HYPERTENSION[ICD9: 401.9] Diagnosis: ATRIAL FIBRILLATION[ICD9: 427.31] Diagnosis: URGE INCONTINENCE[ICD9: 788.31] Diagnosis: MALAISE AND FATIGUE[ICD9: 780.79] Diagnosis: Dyspnea[ICD9: 786.09] Karma Bahena MD, [facility] CPT-4: 81376 12/25/2013 ([id number]) 56030 EST. PATIENT, LEVEL IV Diagnosis: ESSENTIAL HYPERTENSION[SNOMED: 02076279] Diagnosis: ATRIAL FIBRILLATION[ICD9: 427.31] Diagnosis: Abdominal pain[ICD9: 789.00] Diagnosis: ESOPHAGEAL REFLUX[ICD9: 530.81] Karma Bahena MD, [facility] CPT-4: 64544 11/27/2013 ([id number]) 52471 EST. PATIENT, LEVEL IV Diagnosis: ESSENTIAL HYPERTENSION[SNOMED: 88292642] Diagnosis: ATRIAL FIBRILLATION[ICD9: 427.31] Diagnosis: Chronic osteoarthritis[ICD9: 715.90] Karma Bahena MD, [facility] CPT- 4: 97064 09/12/2013 ([id number]) 78497 EST. PATIENT, LEVEL III Diagnosis: ESSENTIAL HYPERTENSION[SNOMED: 32201918] Diagnosis: Bruising[ICD9: 924.9] Diagnosis: ENCNTR LONG-RX USE NEC[ICD9: V58.69] Karma Bahena MD [facility] CPT- 4: 81015 08/15/2013 ([id number]) 06934 EST. PATIENT, LEVEL IV Diagnosis: ESSENTIAL HYPERTENSION[SNOMED: 39508159] Diagnosis: Hematuria[ICD9: 599.70] Diagnosis: Dysuria[ICD9: 788.1] Karma Bahena MD [facility] CPT-4: 84249 08/01/2013 ([id number]) 64485 EST. PATIENT, LEVEL III Diagnosis: UTI[ICD9: 599.0] Diagnosis: Hematuria[ICD9: 599.70] Laura Bahena MD, [facility] CPT-4: 54599 07/01/2013 ([id number]) 38867 EST. PATIENT, LEVEL III Diagnosis: ATRIAL FIBRILLATION[ICD9: 427.31] Diagnosis: ESSENTIAL HYPERTENSION[SNOMED: 77377679] Karma Bahena MD [facility] CPT-4: 32929 05/29/2013 ([id number]) 56783 EST. PATIENT, LEVEL IV Diagnosis: Atrial fibrillation[ICD9: 427.31] Diagnosis: Encounter for monitoring digoxin therapy[ICD9: V58.83] Diagnosis: ESSENTIAL HYPERTENSION[SNOMED: 20324926] Karma Bahena MD [facility] CPT-4: 30662 05/15/2013 ([id number]) 37065 EST. PATIENT, LEVEL IV Diagnosis: ESSENTIAL HYPERTENSION[SNOMED: 23333925] Diagnosis: ATRIAL FIBRILLATION[ICD9: 427.31] Diagnosis: PALPITATIONS[ICD9: 785.1] Diagnosis: Dizziness and giddiness[ICD9: 780.4] Karma Bahena MD, [facility] CPT- 4: 46565 04/23/2013 ([id number]) 89789 EST. PATIENT, LEVEL III Diagnosis: OTHER CONSTIPATION[ICD9: 564.09] Diagnosis: ABDOM PAIN NOS SITE[ICD9: 789.00] Laura Bahena MD, [facility] CPT- 4: 43056 03/21/2013 ([id number]) 70820 EST. PATIENT, LEVEL IV Diagnosis: ESSENTIAL HYPERTENSION[SNOMED: 99522877] Diagnosis: Atrial fibrillation[ICD9: 427.31] Krama Bahena MD [facility] CPT- 4: 02533 01/16/2013 ([id number]) Miscellaneous no charge Diagnosis: CELLULITIS OF HAND[ICD9: 682.4] [facility] CPT-4: 03321 12/19/2012 ([id number]) Miscellaneous no charge Diagnosis: ENCOUNTER FOR THERAPEUTIC DRUG MONITORING[ICD9: V58.83] Diagnosis: CELLULITIS OF HAND[ICD9: 682.4] Karma Bahena MD [facility] CPT-4: 75806 12/14/2012 Miscellaneous no charge Diagnosis: CELLULITIS OF HAND[ICD9: 682.4] PARVEEN Freitas MD CPT-4: 71870 12/12/2012 [id number] EST. PATIENT, LEVEL II Diagnosis: CELLULITIS OF HAND[ICD9: 682.4] Diagnosis: ENCNTR LONG-RX USE NEC[ICD9: V58.69] Diagnosis: LONG-TERM USE ANTICOAGUL[ICD9: V58.61] Karma Bahena MD [facility] CPT-4: 85464 12/11/2012 ([id number]) [id number] EST. PATIENT, LEVEL III Diagnosis: CELLULITIS OF HAND[ICD9: 682.4] Karma Bahena MD [facility] CPT-4: 68851 12/10/2012 ([id number]) 21335 EST. PATIENT, LEVEL IV Diagnosis: Elevated digoxin level[ICD9: 796.0] Diagnosis: ATRIAL FIBRILLATION[ICD9: 427.31] Diagnosis: Inflammatory arthritis[ICD9: 714.9] [facility] CPT- 4: 04223 10/30/2012 ([id number]) 81957 EST. PATIENT, LEVEL IV Diagnosis: Atrial fibrillation[ICD9: 427.31] Diagnosis: Anticoagulant long-term use[ICD9: V58.61] Diagnosis: ESSENTIAL HYPERTENSION[SNOMED: [id number]] [facility] CPT-4: 96555 08/08/2012 ([id number]) 86517 EST. PATIENT, LEVEL IV Diagnosis: ABDOM PAIN NOS SITE[ICD9: 789.00] Diagnosis: Constipation - functional[ICD9: 564.09] Diagnosis: EDEMA[ICD9: 782.3] Diagnosis: ATRIAL FIBRILLATION[ICD9: 427.31] Karma Bahena MD, [facility] CPT- 4: 95867 07/11/2012 ([id number]) 05972 EST. PATIENT, LEVEL III Diagnosis: Cystocele[ICD9: 618.01] Diagnosis: Rectocele[ICD9: 618.04] Karma Bahena MD, [facility] CPT-4: [address] 05/08/2012 ([id number]) 68880 EST. PATIENT, LEVEL IV Diagnosis: Atrial fibrillation[ICD9: 427.31] Diagnosis: ESSENTIAL HYPERTENSION[SNOMED: 53145541] Diagnosis: Status post small bowel resection[ICD9: V45.89] Diagnosis: ENCNTR LONG-ANTICOAG USE[ICD9: V58.61] [facility] CPT-4: 01054 04/18/2012 ([id number]) Patient admitted to the hospital from clinic (NO CHARGE) Diagnosis: Abdominal pain[ICD9: 789.00] Diagnosis: Nausea and vomiting[ICD9: 787.01] Diagnosis: ESSENTIAL HYPERTENSION[SNOMED: 35938306] [facility] CPT-4: 79559I 03/13/2012 ([id number]) 48579 EST. PATIENT, LEVEL IV Diagnosis: ATRIAL FIBRILLATION[ICD9: 427.31] Diagnosis: URGE INCONTINENCE[ICD9: 788.31] Diagnosis: MALAISE AND FATIGUE[ICD9: 780.79] Diagnosis: Dyspnea[ICD9: 786.09] [facility] CPT-4: 14077 02/20/2012 34515 EST. PATIENT, LEVEL IV Diagnosis: Hematuria[ICD9: 599.70] Diagnosis: Vaginal yeast infection[ICD9: 112.1] Diagnosis: ATRIAL FIBRILLATION[ICD9: 427.31] Laura [facility] CPT- 4: 86868 02/13/2012 ([id number]) 60276 EST. PATIENT, LEVEL IV Diagnosis: Atrial fibrillation[ICD9: 427.31] Diagnosis: Anticoagulation goal of INR 2 to 3[ICD9: V58.83] Diagnosis: Urinary incontinence, urge[ICD9: 788.31] Diagnosis: ESSENTIAL HYPERTENSION[SNOMED: 71055905] Karma Bahena MD, [facility] CPT-4: 34170 02/01/2012 ([id number]) 53801 EST. PATIENT, LEVEL IV Diagnosis: Atrial fibrillation[ICD9: 427.31] Diagnosis: Anticoagulant long-term use[ICD9: V58.61] Diagnosis: ESSENTIAL HYPERTENSION[SNOMED: 79860214] Karma Bahena MD, [facility] CPT-4: 29513 2012 33506 EST. PATIENT, LEVEL IV Diagnosis: UTI[ICD9: 599.0] Diagnosis: ESSENTIAL HYPERTENSION[SNOMED: 11264240] Diagnosis: MALAISE AND FATIGUE[ICD9: 780.79] Diagnosis: Esophageal reflux[ICD9: 530.81] Karma Bahena MD [facility] CPT-4: 25359 12/01/2011 ([id number]) 48111 EST. PATIENT, LEVEL IV Diagnosis: UTI (urinary tract infection)[ICD9: 599.0] Diagnosis: ESSENTIAL HYPERTENSION[SNOMED: 80101352] Diagnosis: URGE INCONTINENCE[ICD9: 788.31] Karma Bahena MD, [facility] CPT-4: 66537 11/23/2011 ([id number]) 72347 EST. PATIENT, LEVEL IV Diagnosis: ESSENTIAL HYPERTENSION[SNOMED: 74287049] Diagnosis: IMPACTED CERUMEN[ICD9: 380.4] Diagnosis: MALAISE AND FATIGUE[ICD9: 780.79] Diagnosis: EDEMA[ICD9: 782.3] Karma Bahena MD, [facility] CPT-4: 98649 10/03/2011 36634 EST. PATIENT, LEVEL IV Diagnosis: ESSENTIAL HYPERTENSION[SNOMED: 11790473] Diagnosis: Generalized osteoarthritis[ICD9: 715.09] Diagnosis: OSTEOPOROSIS[ICD9: 733.00] Karma Bahena MD, [facility] CPT-4: 24583 08/08/2011 21639 EST. PATIENT, LEVEL IV Diagnosis: Muscle cramp[ICD9: 729.82] Diagnosis: Torticollis[ICD9: 723.5] Diagnosis: Rash[ICD9: 782.1] [facility] CPT-4: 48798 05/09/2011 22399 EST. PATIENT, LEVEL IV Diagnosis: Leg cramps, sleep related[ICD9: 327.52] Diagnosis: Underweight[ICD9: 783.22] [facility] CPT-4: 29589 03/29/2011 59734 EST. PATIENT, LEVEL IV Diagnosis: UTI[ICD9: 599.0] Diagnosis: Urge incontinence[ICD9: 788.31] Diagnosis: Loss of weight[ICD9: 783.21] Diagnosis: Palpitations[ICD9: 785.1] Diagnosis: Peripheral neuropathy, idiopathic[ICD9: 356.9] [facility] CPT-4: 30412 03/15/2011 Plan of Care Planned Activity Notes Codes Status Date Visit Plan: I have called Dr. Rock [...] surgically removed. 08/14/2018 Appointment: Karma Bahena WPtel: [address] [place], [place] [address] (15 min) Moderate 08/14/2018 Patient Education: Patient [...] surgically removed. 07/26/2018 Appointment: Karma Bahena WPtel: [facility]5 [facility] (15 min) Moderate 07/26/2018 Patient Education: Patient [...] not improving. 06/04/2018 Appointment: Karma Bahena WPtel: [facility]6 [facility] (15 min) Moderate 06/04/2018 Patient Education: Patient Medication Summary Completed 06/04/2018 Appointment: Karma Bahena WPtel: [facility]5 [facility] (15 min) Moderate 03/14/2018 Visit Plan: [...] of control. 01/31/2018 [facility]ointment: [phone] [facility] - Annual Wellness Visit 01/31/2018 Patient Education: [...] nasal steroid allergy spray. 12/14/2017 Appointment: Karma Bhaena WPtel: 1015 [facility] (15 min) Moderate 12/14/2017 Patient Education: Patient [...] spray. 12/07/2017 Appointment: Katharine Dai WPtel: 1015 [facility] (15 min) Moderate 12/07/2017 Patient Education: [...] control. 11/14/2017 Appointment: Karma Bahena WPtel: 101[address] [facility] (15 min) Moderate 11/14/2017 Patient Education: [...] today. 03/27/2017 Appointment: [facility] ([facility] min) Moderate 03/27/2017 Patient Education: Patient [...] care surrogate. 01/23/2017 Appointment: [facility] [facility] - Annual Wellness Visit 01/23/2017 Patient Education: [...] uncontrolled. 01/19/2017 Appointment: Karma Bahena WPtel: 1015 [facility] (15 min) Moderate 01/19/2017 Patient Education: Patient Medication Summary Completed 01/19/2017 Care Plan: Referral Order SNOMED-CT : 298640219 Pending 01/19/2017 Appointment: Karma Bahena WPtel: 1011 [facility] [place] (15 min) Moderate 01/04/2017 Appointment: Karma Bahena WPtel: 1019 [facility] [place] (15 min) Moderate 12/28/2016 Visit Plan: UQQ-takek-zgh zpack-call if symptoms do not resolve or if any worse. Patient verbalized understanding of plan. 11/29/2016 Appointment: Laura Colin WPtel: 101 [phone] [place] (15 min) Moderate 11/29/2016 Patient [...] pharmacy. 11/23/2016 Appointment: Katharine Dai WPtel: 1015 [facility] [place] (15 min) Moderate 11/23/2016 Patient Education: Patient Medication Summary Completed 11/23/2016 Visit Plan: Pharyngitis-Discussed natural and expected course of this diagnosis and need to alert me if symptoms do not follow expected course, or if any worse. Recommended salt water gargles as needed for pain. Ty lenol/motrin as needed for fever/discomfort. 11/21/2016 Appointment: Laura Colin WPtel: 1018 [phone] [place] (15 min) Moderate 11/21/2016 Patient [...] monitor symptoms. 11/08/2016 Appointment: Karma Bahena WPtel: [facility] [place] (10 min) Simple 11/08/2016 Patient [...] etc. 11/02/2016 Appointment: Karma Bahena WPtel: [phone] [facility] [place] (15 min) Moderate 11/02/2016 Appointment: Nurse Visit 11/02/2016 Patient Education: Patient Medication Summary Completed 11/02/2016 Appointment: Nurse Visit 10/31/2016 Visit Plan: Laceration-right forearm- Pt was instructed to keep the wound clean, cleanse with sterile saline, use bactroban ointment, call if redness, pustular drainage, or any other acute concerns. Follow up Monday for dressing changes. 10/27/2016 Appointment: Laura Colin WPtel: [phone] [phone] (30 min) Complex 10/27/2016 Patient Education: [...] symptoms. 08/31/2016 Appointment: Karma Bahena WPtel: 1015 [facility] (15 min) Moderate 08/31/2016 Patient Education: [...] your swelling. 07/27/2016 Appointment: [phone] (15 min) Moderate 07/27/2016 Patient Education: Patient [...] of lasix 06/23/2016 Appointment: Karma Bahena WPtel: [facility] (15 min) Moderate 06/23/2016 Patient Education: Patient Medication Summary Completed 06/23/2016 Patient Education: Hypertension Completed 06/23/2016 Visit Plan: Edema - with Dyspnea - RX for laxis and compression socks - pt to call if not improving. 06/09/2016 Appointment: Karma Bahena WPtel: [address] [place], [place] [phone] (15 min) Moderate 06/09/2016 Patient Education: Patient Medication Summary Completed 06/09/2016 Visit Plan: Abdominal pain and rectal itching - recommended pt to use betamethasone on vaginal/rectal region, monitor symptoms call if not improving. Continue with beano and simethicone 05/25/2016 Appointment: Karma Bahena WPtel: [address] [place], [place] [address] (15 min) Moderate 05/25/2016 Patient Education: Patient Medication Summary Completed 05/25/2016 Care Plan: SCREENINGMAMMOGRAPHYDIGITAL [facility] : 47590-1 Pending 05/20/2016 Visit Plan: Abdominal distension - use simethicone four times daily - after meals - if it does not help - in the next two weeks - call the office and we will do a ct scan of the abdomen and pelvis 05/17/2016 Appointment: Karma Bahena WPtel: [facility]6 [facility] (15 min) Moderate 05/17/2016 Patient Education: [...] steroid ointment 03/24/2016 Appointment: [facility]hena [facility]Ptel: [phone] (30 min) Complex 03/24/2016 Patient Education: Patient [...] spray. 12/21/2015 Appointment: [phone] (30 min) Complex 12/21/2015 Patient Education: [...] becoming uncontrolled. 11/03/2015 Appointment: Karma Bahena WPtel: [facility] (15 min) Moderate 11/03/2015 Patient Education: Patient [...] had left kidney and ureter removed in [place]-doing well 09/01/2015 Appointment: (30 min) Complex 09/01/2015 Patient Education: Patient Medication Summary Completed 09/01/2015 Patient Education: Hypertension Completed 09/01/2015 Appointment: Karma Bahena WPtel: [facility] (15 min) Moderate 07/13/2015 Visit Plan: Hematuria/Urethritis [...] 05/13/2015 Care Plan: Referral Order SNOMED-CT : [id number] Ordered 05/08/2015 Visit Plan: Atrial Fibrillation - [...] Dr. Collins. 05/07/2015 Appointment: Karma Bahena WPtel: [address] [place], [place] [address] (15 min) Moderate 05/07/2015 Patient Education: Patient [...] becoming uncontrolled. 10/30/2014 Appointment: Karma Bahena WPtel: [facility]0 [facility] Follow up 10/30/2014 Patient Education: Patient Medication Summary Completed 10/30/2014 Appointment: Karma Bahena WPtel: [address] [place], [place] [phone] Follow up 07/22/2014 Visit Plan: Atrial Fibrillation [...] in hospital. 07/11/2014 Appointment: Karma Bahena WPtel: [facility]9 [facility] Sick 07/11/2014 Patient Education: Patient Medication Summary Completed 07/11/2014 Appointment: Karma Bahena WPtel: [address] [place], [place] [address] Follow up 07/07/2014 Visit Plan: Urinary incontinence and recurrent UTI's - doctor will refer to Dr. Joel Collins - for nonsurgical intervention for potential electrical stimulation/training of pelvic floor muscles - for strengthening - can start on the treatment when you get back from [place] - will also ask him about doing a cystoscopy to look into bladder to see if there is any bladder irritation. keep using the Premarin - use about 25Cent size of cream onto finger to apply to urethra and do this three times weekly. 05/20/2014 Appointment: Karma Bahena WPtel: [address] [place] [address] Follow up 05/20/2014 Patient Education: Patient Medication Summary Completed 05/20/2014 Appointment: Karma Bahena WPtel: [facility]5 [facility] Lab Draw 05/14/2014 Patient Education: Patient Medication [...] recommended vesicare. 04/29/2014 Appointment: Karma Bahena WPtel: [facility] Follow up 04/29/2014 Patient Education: Patient [...] allergy spray. 03/20/2014 Appointment: Karma Bahena WPtel: [phone] [facility] [facility] 03/20/2014 Patient Education: Patient Medication Summary [...] uncontrolled. 03/05/2014 Appointment: Karma Bahena WPtel: [phone] [place] [phone] Follow up 03/05/2014 Patient Education: Patient Medication [...] report. 01/29/2014 Appointment: Kar[facility] Bahena WPtel: [phone] Follow up 01/29/2014 Patient Education: Patient Medication [...] exposure,and dyspnea on exertion - will ask [place] [facility] do an overnight oxygen study on [place] as she has cardiac history, weight loss, and nocturnal hypoxemia may be a part of her weight loss and fatigue. 12/25/2013 Appointment: Karma Bahena WPtel: [phone] Follow up 12/25/2013 Patient Education: Patient Medication [...] twice daily. 11/27/2013 Appointment: Karma Bahena WPtel: [address] [place], [place] [phone] Follow up 11/27/2013 Patient Education: Patient Medication [...] heart rate. Osteoarthritis - send pt to [facility] physical therapy for gereral osteoarhtritis program for strengthening and pain reduction. Hypertension - well controlled - continue with current medications, continue with no added salt diet. Pt has been encouraged to exercise daily. The pt has been advised to call the office if there are any acute concerns about change in blood pressure readings at home. 09/12/2013 Appointment: Karma Bahena WPtel: [address] [place], [place] [phone] Follow up 09/12/2013 Patient Education: Patient Medication Summary Completed 09/12/2013 Patient Education: Hypertension Completed 09/12/2013 Appointment: Karma Bahena WPtel: [address] [place], [place] [phone] Follow up 08/21/2013 Visit Plan: Hypertension - [...] PT/INR 08/15/2013 Appointment: Karma Bahena WPtel: [phone] [facility] [place] Follow up 08/15/2013 Patient Education: Patient [...] of urethra. 08/01/2013 Appointment: Karma Bahena WPtel: [facility] [place] Follow up 08/01/2013 Patient Education: Patient Medication Summary Completed 08/01/2013 Patient Education: Hypertension Completed 08/01/2013 Appointment: Laura Colin WPtel: [facility]5 [phone] [place] Lab Draw 07/29/2013 Patient Education: Patient Medication Summary Completed 07/29/2013 Visit Plan: Osteoporosis-prolia on june 25-patient to let Dr Hansen know 07/01/2013 Appointment: Laura Colin WPtel: [facility]5 [phone] Follow up 07/01/2013 Appointment: Karma Bahena WPtel: [address] [place] [address] Follow up 07/01/2013 Patient Education: Patient Medication Summary Completed 07/01/2013 Appointment: Migdalia Bahenay WPtel: [address] [place] [address] Follow up 06/25/2013 Appointment: Migdalia Bahenay WPtel: [address] [place] [address] [place] Lab Draw 06/20/2013 Patient Education: Patient Medication Summary Completed 06/20/2013 Appointment: Migdalia Bahenay WPtel: [address] [place], [place] [phone] [place] Lab Draw 06/19/2013 Visit Plan: Atrial [...] blood pressure readings at home. 05/29/2013 Appointment: Migdalia Bahenay WPtel: [address] [place] [address] Follow up 05/29/2013 Patient Education: Patient Medication [...] at home. 05/15/2013 Appointment: Karma Bahena WPtel: [address] [place] [address] Other 05/15/2013 Patient Education: Patient Medication Summary [...] shot today. 04/23/2013 Appointment: Karma Bahena WPtel: [facility] Other 04/23/2013 Patient Education: Patient Medication Summary [...] this regimen. 03/21/2013 Appointment: Laura Colin WPtel: [facility]4 [phone] Follow up 03/21/2013 Patient Education: Patient [...] becoming uncontrolled. 01/16/2013 Appointment: Karma Bahena WPtel: [facility]1 [facility] Follow up 01/16/2013 Patient Education: Patient Medication Summary Completed 01/16/2013 Patient Education: Hypertension Completed 01/16/2013 Visit Plan: Wound Instructions - Pt was instruced to keep the wound clean, wash with antibacterial soap, use triple antibiotic ointment, call if redness, pustular drainage, or any other acute conerns. 12/19/2012 Appointment: Karma Bahena WPtel: [address] [place], [place] [phone] Other 12/19/2012 Patient Education: Patient Medication Summary Completed 12/19/2012 Patient Education: Patient Medication Summary Completed 12/17/2012 Visit Plan: Cellulitis - improved- monitor symptoms - need to check handon Monday morning. 12/14/2012 Appointment: Karma Bahena WPtel: [address] [place], [place] [phone] Follow up 12/14/2012 Patient Education: Patient Medication Summary Completed 12/14/2012 Visit Plan: Cellulitis - improved- monitor symptoms - need to check handon Monday morning. 12/12/2012 Appointment: Karma Bahena WPtel: [address] [place] [address] Work-in 12/12/2012 Patient Education: Patient Medication Summary [...] warmth, discharge. 12/10/2012 Appointment: Karma Bahena WPtel: [address] [place], [place] [phone] Other 12/10/2012 Patient Education: Patient Medication Summary [...] uncontrolled. 10/30/2012 Appointment: Karma Bahena WPtel: 1015 [facility] Follow up 10/30/2012 Patient Education: Patient Medication Summary Completed 10/30/2012 Appointment: Laura Colin WPtel: 1017 [phone] Lab Draw 09/13/2012 Patient Education: Patient [...] and 3.5. 08/08/2012 Appointment: Karma Bahena WPtel: [facility]8 [facility] Other 08/08/2012 Patient Education: Patient Medication [...] this regimen. 07/11/2012 Appointment: Karma Bahena WPtel: [facility]5 [facility] swelling, leg edema Other 07/11/2012 Patient [...] medication vaginally. 05/08/2012 Appointment: Karma Bahena WPtel: [facility]8 [facility] Follow up 05/08/2012 Patient Education: Patient Medication [...] during hospitalization. 04/18/2012 Appointment: Karma Bahena WPtel: 1019 [facility] Follow up 04/18/2012 Patient Education: Patient Medication Summary Completed 04/18/2012 Patient Education: High Blood Pressure: Essential Hypertension Completed 04/18/2012 Appointment: [facility]Ptel: [facility] [place] Follow up 04/09/2012 Appointment: Karma Bahena WPtel: 101 [facility] [place] Lab Draw 04/04/2012 Appointment: ColinLaura WPtel: 1012 [phone] [place] Lab Draw 03/19/2012 Visit Plan: Abdominal [...] Completed 03/13/2012 Appointment: Karma Bahena WPtel: [phone] [place] Lab Draw 03/08/2012 Patient Education: Patient [...] cardiac rehab. 02/20/2012 Appointment: Karma Bahena WPtel: [facility]9 [facility] Other 02/20/2012 Patient Education: Patient Medication [...] becoming uncontrolled. 02/13/2012 Appointment: Laura Colin WPtel: [phone] [place] Other 02/13/2012 Patient Education: Patient Medication Summary Completed 02/13/2012 Appointment: Karma Bahena WPtel: [facility] [place] Lab Draw 02/07/2012 Visit Plan: Atrial [...] the medication. 02/01/2012 Appointment: Karma Bahena WPtel: [facility] Other 02/01/2012 Patient Education: Patient Medication Summary Completed 02/01/2012 Patient Education: High Blood Pressure: Essential Hypertension Completed 02/01/2012 Appointment: Karma Bahena WPtel: [address] [place] [address] Lab Draw 01/17/2012 Visit Plan: Atrial Fibrillation [...] at home. 2012 Appointment: Karma Bahena WPtel: [facility] Other 2012 Patient Education: Patient Medication Summary Completed 2012 Patient Education: High Blood Pressure: Essential Hypertension Completed 2012 Appointment: Karma Bahena WPtel: [address] [place] [address] Follow up 12/20/2011 Visit Plan: Dicyclomine up [...] room. 12/01/2011 Appointment: Karma Bahena WPtel: 1017 [facility] Other 12/01/2011 Patient Education: Patient Medication [...] resolves. 11/23/2011 Appointment: Laura Colin WPtel: 1015 [phone] Other 11/23/2011 Patient Education: Patient Medication [...] hearing 10/17/2011 Appointment: Laura Colin WPtel: 1015 [facility] [place] [address] Other 10/17/2011 Patient Education: Patient Medication Summary [...] by irrigation. 10/03/2011 Appointment: Karma Bahena WPtel: [address] Other 10/03/2011 Patient Education: Patient Medication [...] is evidence. 08/08/2011 Appointment: Karma Bahena WPtel: [address] Other 08/08/2011 Patient Education: Patient Medication Summary Completed 08/08/2011 Patient Education: High Blood Pressure: Essential Hypertension Completed 08/08/2011 Visit Plan: Muscle cramps - the cramps are a little better, continue with the Diltiazem and it is okay to use the over the counter supplement with quinine - but use it sparingly. For the rash, use the prescripti on the base wad operator adjuster prescribed for the itching , call if the rash is not improved. Torticollis - continue with physical therapy, call if the neck muscles do not continue to show improvement. 05/09/2011 Appointment: Karma Bahena WPtel: [address] [place] [address] Other 05/09/2011 Patient Education: Patient Medication Summary [...] water aerobics. 03/29/2011 Appointment: Karma Bahena WPtel: [address] [place], [place] [phone] Other 03/29/2011 Patient Education: Patient Medication Summary Completed 03/29/2011 Appointment: Karma Bahnea WPtel: [address] [place], [place] [phone] Other 03/17/2011 Visit Plan: UTI - UA negative. Urge incontinence- restart on the vesicare- at 5 mg. Continue to avoid caffinated foods/fluids. Peripheral Neuropathy - per area director report - Continue with the metanex. Loss of weight - WEIGHT CHECK IN 2 WKS. Palpitations- likely stress induced. If the symptoms worsen, call the office. 03/15/2011 Appointment: Kar[facility] Bahena WPtel: [phone] Follow up 03/15/2011 Patient Education: Patient Medication Summary Completed 03/15/2011 Visit Plan: Rocephin 500mg IM 03/04/2011 Patient Education: Patient Medication Summary Completed 03/04/2011 Referral: Dr Jeff Referral Appointment Requested Referral: Corby Collins Referral Appointment Requested Instructions Comment . I have called Dr. Rock about [...] would need to be surgically removed. . Cellulitis - continue with oral antibiotics [...] blood pressure or heart rate becoming uncontrolled. Nasal spray- use twice daily, one spray [...] home. [place] and [place]- recommended cardiac rehab. . Cellulitis - improved- [...] heart rate. Osteoarthritis - send pt to [facility] physical therapy for gereral osteoarhtritis [...] For the rash, use the prescription the base wad operator adjuster prescribed for the itching , call if [...] in blood pressure readings at home. . KNA-darhv-hok zpack-call if symptoms do not resolve or [...] avoid caffinated foods/fluids. Peripheral Neuropathy - per area director report - Continue with the metanex. Loss [...] with compression and prn use of lasix increase the lisinopril to 20mg twice daily [...] use betamethasone ointment on rectal tissue . Cerumen Impaction - The impacted cerumen [...] during the removal process. . Cellulitis - continue with oral antibiotics [...] not improving will consult Dr. Collins. . Hypothyroidism - pt with chronic hypothyroidism, [...] - continue with supportive care, bactroban, etc. continue with carafate - use as much [...] had left kidney and ureter removed in [place]- doing well . Hematuria - check UA. [...] to be surgically removed. . Hypertension - well controlled - continue [...] heart rate is becoming uncontrolled. . Wound Instructions - Pt was instruced [...] the treatment when you get back from [place] - will also ask him about [...] the treatment when you get back from [place] - will also ask him about doing [...] pradaxa, will have to start heparin protocol. diflucan 150mg daily x 7 days - [...] in the nasal steroid allergy spray. use simethicone four times daily - after [...] ct scan of the abdomen and pelvis pt to have esr, crp, tsh, free [...] exposure,and dyspnea on exertion - will ask [place] Patient do an overnight oxygen study on [...] daily use of bactroban - monitor symptoms. . Abdominal pain-N/V-patient [id number] [id number] [email or web address] [id number] [...]
--- OUTSIDE RECORDS SUMMARY | 2018-12-10 20:49 | XMS REPORT | CCD ---
Author Author Laura Colin Organization Karma Bahena MD, [facility] Address [address] [place] [address] Phone Care Team Providers Care Sausage Inspector Name Role Phone Karma Bahena PP Unavailable CCM Unavailable Summary Purpose Interface Exchange Insurance Providers Payer name Policy type / Coverage type Covered libertarian ID Effective Begin Date Effective End Date WPS Medicare Part B Medicare Part B [id number] 2018 Unknown AARP Medicare Part B [id number] 2018 Unknown Family history Sister Diagnosis Age [...] Unknown House 03/15/[address]: 335759748 Never smoker 03/15/2011 Has the patient ever used illegal drugs? Unknown Has never used illegal drugs 03/15/2011 Allergies, Adverse Reactions, Alerts Substance Reaction Codes Entered Date Inactivated Date Status BACTINE RxNorm: 274013 03/04/2011 No Inactive Date Active MICONAZOLE RxNorm: 6932 03/04/2011 No Inactive Date Active NEOSPORIN RxNorm: 023178 03/04/2011 No Inactive Date Active NEOMYCIN RxNorm: 7299 03/04/2011 No Inactive Date Active CORTISPORIN RxNorm: 91009 03/04/2011 No Inactive Date Active bactrim RxNorm: 075232 03/13/2012 No Inactive Date Active AUGMENTIN diarrhea RxNorm: 012968 2016 No Inactive Date Active METRONIDAZOLE Unknown 03/04/2011 No Inactive Date Active NYSTATIN Unknown 03/04/2011 No Inactive Date Active PNEUMOCOCCAL VACCINE Unknown 03/04/2011 No Inactive Date Active Past Medical History Illness Codes Condition Status Onset Date Resolved Date Encounter for screening mammogram for malignant neoplasm of breast ICD-9: V76.12 ICD-10: Z12.31 Active 05/12/2014 Unknown Atrophy of thyroid (acquired) ICD-9: 244.8 ICD-10: E03.4 Active 11/02/2016 Unknown Essential (primary) hypertension ICD-9: 401.1 ICD-10: I10 Active 01/19/2017 Unknown Gastro-esophageal reflux disease without esophagitis ICD-9: 530.81 ICD-10: K21.9 Active 06/04/2018 Unknown Essential (primary) hypertension ICD-9: 401.9 ICD-10: I10 Active 12/25/2013 Unknown Other correction (current) drug therapy ICD-9: V58.83 ICD-10: Z79.899 Active 01/31/2018 Unknown Encounter for general adult medical examination with abnormal findings ICD-9: V70.0 ICD-10: Z00.01 Active 01/23/2017 Unknown Allergic rhinitis due to pollen ICD-9: 477.0 ICD-10: J30.1 Active 12/20/2015 Unknown Chronic atrial fibrillation ICD-9: 427.31 ICD-10: [...] 706.2 ICD-10: L72.0 Active 02/01/2016 Unknown Other correction (current) drug therapy ICD-9: V58.69 ICD-10: Z79.899 [...] Codes Effective Dates Condition Status Encounter for screening mammogram for malignant neoplasm of breast ICD-9: V76.12 ICD-10: Z12.31 05/12/2014 Active Atrophy of thyroid (acquired) ICD-9: 244.8 ICD-10: E03.4 11/02/2016 Active Essential (primary) hypertension ICD-9: 401.1 ICD-10: I10 01/19/2017 Active Gastro-esophageal reflux disease without esophagitis ICD-9: 530.81 ICD-10: K21.9 06/04/2018 Active Essential (primary) hypertension ICD-9: 401.9 ICD-10: I10 12/25/2013 Active Other terminal operations manager (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) drug 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 ICD-9: V58.83 ICD-10: Z79.899 01/31/2018 Active Encounter for general adult medical examination with abnormal findings ICD-9: V70.0 ICD-10: Z00.01 01/23/2017 Active Allergic rhinitis due to pollen ICD-9: 477.0 ICD-10: J30.1 12/20/2015 Active Chronic atrial fibrillation ICD-9: 427.31 ICD-10: [...] ICD-9: 706.2 ICD-10: L72.0 02/01/2016 Active Other correction (current) drug therapy ICD-9: V58.69 ICD-10: Z79.899 [...] Start Date Stop Date Status Fill Instructions cefdinir 300 mg capsule RxNorm: 762192 1 Capsule(s) PO BID 06/20/2018 06/26/2018 Active cefdinir 300 mg capsule RxNorm: 476353 1 Capsule(s) PO BID 06/20/2018 06/19/2018 Inactive metoprolol succinate ER 50 mg tablet,extended release 24 hr RxNorm: 365357 1.5 Tablet(s) daily 06/15/2018 03/11/2019 Active sucralfate 100 mg/mL oral suspension RxNorm: 958876 2 Teaspoon(s) PO TID as needed with reflux symptoms 06/04/2018 No Stop Date Active Vesicare 10 mg tablet RxNorm: 371205 1 TABLET(S) PO EVERY OTHER DAY 05/14/2018 01/08/2019 Active levothyroxine 50 mcg tablet RxNorm: 679425 1 TABLET(S) PO DAILY 04/30/2018 07/28/2018 Active Patient requests 90 days supply spironolactone 25 mg tablet RxNorm: 792410 1 Tablet(s) PO daily 03/14/2018 03/08/2019 Active levothyroxine 50 mcg tablet RxNorm: 110769 1 Tablet(s) PO daily 02/01/2018 04/29/2018 Inactive Eliquis 2.5 mg tablet RxNorm: 5171461 1 Tablet(s) PO BID 01/31/2018 02/20/2018 Inactive levothyroxine 50 mcg tablet RxNorm: 230704 1 Tablet(s) PO daily 01/31/2018 01/31/2018 Inactive Eliquis 2.5 mg tablet RxNorm: 8452771 TAKE 1 TABLET BY MOUTH TWICE DAILY 01/23/2018 07/21/2018 Active metoprolol succinate ER 50 mg tablet,extended release 24 hr RxNorm: 654611 1 TABLET(S) PO DAILY 01/23/2018 01/30/2018 Inactive metoprolol succinate ER 50 mg tablet,extended release 24 hr RxNorm: 847979 1.5 Tablet(s) daily 01/22/2018 06/14/2018 Inactive lisinopril 20 mg tablet RxNorm: 716121 1/2 Tablet(s) daily 01/19/2018 01/21/2018 Inactive Patient requests 90 days supply Singulair 10 mg tablet RxNorm: 186425 TAKE 1 TABLET BY MOUTH AT BEDTIME 01/18/2018 04/17/2018 Inactive Patient requests 90 days supply Singulair 10 mg tablet RxNorm: 564300 Tablet(s) PO 01/17/2018 01/17/2018 Inactive digoxin 125 mcg tablet RxNorm: 419953 1 TABLET(S) PO DAILY 01/03/2018 12/28/2018 Active Symbicort 160 mcg-4.5 mcg/actuation HFA aerosol inhaler RxNorm: 2018521 2 Puff(s) INH BID 12/14/2017 04/12/2018 Inactive please dispense an aerochamber for patient as well as her symbicort cyclobenzaprine 5 mg tablet RxNorm: 064226 Tablet(s) 1/2 TABLET(S) PO Q8 NEEDED MUSCLE SPASMS 12/14/2017 No Stop Date Active pantoprazole 40 mg tablet,delayed release RxNorm: 006651 1 Tablet(s) PO daily 12/14/2017 12/08/2018 Active ProAir RespiClick 90 mcg/actuation breath activated RxNorm: 9818356 1-2 INH QID as needed shortness of breath 12/14/2017 07/11/2018 Active cyclobenzaprine 5 mg tablet RxNorm: 437997 1/2 TABLET(S) PO Q8 NEEDED MUSCLE SPASMS 12/08/2017 12/13/2017 Inactive betamethasone dipropionate 0.05 % topical ointment RxNorm: 531802 1 Application TOP TID use topically on the rectal tissue three times daily x 1 week then as needed 11/13/2017 No Stop Date Active Premarin 0.625 mg/gram vaginal cream RxNorm: 978149 1/2 GRAM(S) VAG TIW 11/13/2017 12/12/2017 Inactive cyclobenzaprine 5 mg tablet RxNorm: 447919 1/2 TABLET(S) PO Q8 NEEDED MUSCLE SPASMS 10/17/2017 12/07/2017 Inactive Vesicare 10 mg tablet RxNorm: 040084 1 Tablet(s) PO every other day 10/17/2017 04/14/2018 Inactive lisinopril 20 mg tablet RxNorm: 901283 1 TABLET(S) PO DAILY 10/02/2017 01/18/2018 Inactive Patient requests 90 days supply levothyroxine 75 mcg tablet RxNorm: 587617 1 TABLET(S) PO DAILY 09/25/2017 01/30/2018 Inactive spironolactone 25 mg tablet RxNorm: 826344 1 TABLET(S) PO DAILY 08/16/2017 03/13/2018 Inactive cyclobenzaprine 5 mg tablet RxNorm: 160532 1/2 TABLET(S) PO Q8 NEEDED MUSCLE SPASMS 08/16/2017 10/16/2017 Inactive Eliquis 2.5 mg tablet RxNorm: 1173076 TAKE 1 TABLET BY MOUTH TWICE DAILY 07/26/2017 01/21/2018 Inactive cyclobenzaprine 5 mg tablet RxNorm: 008031 1/2 Tablet(s) PO Q8 as needed muscle spasms 06/19/2017 08/15/2017 Inactive lisinopril 20 mg tablet RxNorm: 577873 1 TABLET(S) PO DAILY 06/12/2017 10/01/2017 Inactive metoprolol succinate ER 50 mg tablet,extended release 24 hr RxNorm: 075452 1 TABLET(S) PO DAILY 04/07/2017 01/01/2018 Inactive spironolactone 25 mg tablet RxNorm: 527072 1 Tablet(s) PO daily 03/27/2017 03/13/2018 Inactive acyclovir 800 mg tablet RxNorm: 876887 1 Tablet(s) PO TID 03/21/2017 03/30/2017 Inactive acyclovir 800 mg tablet RxNorm: 710214 1 Tablet(s) PO TID 03/21/2017 03/20/2017 Inactive levothyroxine 75 mcg tablet RxNorm: 333705 1 Tablet(s) PO daily 03/16/2017 09/11/2017 Inactive spironolactone 25 mg tablet RxNorm: 729769 1 TABLET(S) PO DAILY 02/09/2017 03/26/2017 Inactive lisinopril 20 mg tablet RxNorm: 343564 1 TABLET(S) PO DAILY 01/02/2017 05/31/2017 Inactive Zithromax Z-Claudio 250 mg tablet RxNorm: 640841 1 Tablet(s) PO UD 11/29/2016 12/03/2016 Inactive ZPACK Keflex 500 mg capsule RxNorm: 477388 1 Capsule(s) PO TID 11/23/2016 12/02/2016 Inactive guaifenesin 400 mg tablet RxNorm: 399584 1 Tablet(s) PO Q6 as needed 11/23/2016 11/27/2016 Inactive omeprazole 40 mg capsule,delayed release RxNorm: 732675 1 Capsule(s) PO QPM 11/02/2016 12/13/2017 Inactive digoxin 125 mcg tablet RxNorm: 824850 1 TABLET(S) PO DAILY 10/27/2016 07/23/2017 Inactive cyclobenzaprine 5 mg tablet RxNorm: 524910 1/2 Tablet(s) PO Q8 PRN 10/25/2016 06/18/2017 Inactive prn muscle spasms Augmentin 500 mg-125 mg tablet RxNorm: 057635 1 Tablet(s) PO BID 10/24/2016 11/02/2016 Inactive Lasix 20 mg tablet RxNorm: 615874 Tablet(s) PRN one to two times a week if needed 07/27/2016 No Stop Date Active Patient requests 90 days supply spironolactone 25 mg tablet RxNorm: 734258 1 Tablet(s) PO daily 07/27/2016 02/08/2017 Inactive Diflucan 150 mg tablet RxNorm: 007011 1 Tablet(s) PO daily 07/27/2016 08/02/2016 Inactive lisinopril 20 mg tablet RxNorm: 596780 1 Tablet(s) PO daily 07/12/2016 01/01/2017 Inactive Lasix 20 mg tablet RxNorm: 233979 1 TABLET(S) PO EVERY OTHER DAY EVERY OTHER DAY 06/10/2016 07/26/2016 Inactive Patient requests 90 days supply potassium chloride ER 10 mEq capsule,extended release RxNorm: 537096 1 CAPSULE(S) PO EVERY OTHER DAY 06/10/2016 07/26/2016 Inactive Patient requests 90 days supply potassium chloride ER 10 mEq capsule,extended release RxNorm: 954350 1 Capsule(s) PO every other day 06/09/2016 06/09/2016 Inactive Lasix 20 mg tablet RxNorm: 872428 1 Tablet(s) PO every other day every other day 06/09/2016 06/09/2016 Inactive levothyroxine 88 mcg tablet RxNorm: 761367 1 Tablet(s) PO daily 05/11/2016 11/06/2016 Inactive Premarin 0.625 mg/gram vaginal cream RxNorm: 224651 1/2 Gram(s) VAG TIW 03/24/2016 03/18/2017 Inactive metoprolol succinate ER 50 mg tablet,extended release 24 hr RxNorm: 357283 1 Tablet(s) PO daily 03/24/2016 03/18/2017 Inactive pantoprazole 40 mg tablet,delayed release RxNorm: 468659 1 Tablet(s) PO daily 02/08/2016 11/01/2016 Inactive betamethasone dipropionate 0.05 % topical ointment RxNorm: 865096 1 Application TOP TID use topically on the rectal tissue three times daily x 1 week then as needed 02/02/2016 11/12/2017 Inactive pantoprazole 40 mg tablet,delayed release RxNorm: 795245 1 Tablet(s) PO daily 2016 02/07/2016 Inactive alprazolam 0.25 mg tablet RxNorm: 542024 1 Tablet(s) PO Q6 as needed 12/04/2015 No Stop Date Active Vesicare 10 mg tablet RxNorm: 119422 1 Tablet(s) PO every other day 11/03/2015 10/16/2017 Inactive alprazolam 0.25 mg tablet RxNorm: 315444 1 Tablet(s) PO Q6 as needed 11/03/2015 12/03/2015 Inactive Premarin 0.625 mg/gram vaginal cream RxNorm: 175158 1/2 Gram(s) VAG TIW 11/03/2015 03/23/2016 Inactive levothyroxine 88 mcg tablet RxNorm: 644949 1 Tablet(s) PO daily 11/03/2015 05/10/2016 Inactive Diflucan 150 mg tablet RxNorm: 706038 1 Tablet(s) PO daily 10/19/2015 10/25/2015 Inactive cetirizine 10 mg chewable tablet RxNorm: 6329953 1 Tablet(s) PO daily 10/13/2015 11/11/2015 Inactive cetirizine 10 mg capsule RxNorm: 8275847 1 Capsule(s) PO daily 10/13/2015 11/11/2015 Inactive Vesicare 10 mg tablet RxNorm: 360179 1/2 TABLET(S) PO BID 09/21/2015 11/02/2015 Inactive betamethasone dipropionate 0.05 % topical ointment RxNorm: 268063 1 Application TOP TID use topically on the rectal tissue three times daily x 1 week then as needed 09/15/2015 02/01/2016 Inactive lisinopril 20 mg tablet RxNorm: 659780 1 Tablet(s) PO daily 09/01/2015 07/11/2016 Inactive digoxin 125 mcg tablet RxNorm: 657803 1 Tablet(s) PO daily 09/01/2015 08/25/2016 Inactive Augmentin 500 mg-125 mg tablet RxNorm: 974975 1 Tablet(s) PO TID 05/26/2015 06/04/2015 Inactive Pyridium 200 mg tablet RxNorm: 4546257 1 Tablet(s) PO TID 05/26/2015 05/27/2015 Inactive levothyroxine 88 mcg tablet RxNorm: 279111 1 Tablet(s) PO daily except 1/2 pill on monday and 05/07/2015 11/02/2015 Inactive digoxin 125 mcg tablet RxNorm: 535639 1 Tablet(s) PO daily 05/07/2015 08/31/2015 Inactive lisinopril 20 mg tablet RxNorm: 333350 1 TABLET(S) PO BID 04/13/2015 09/01/2015 Inactive Coumadin 1 mg tablet RxNorm: 819582 1 TABLET(S) PO DAILY 03/31/2015 08/31/2015 Inactive Coumadin 2 mg tablet RxNorm: 606322 4MG IN AM AND 1MG AT NIGHT TABLET(S) PO DAILY DIRECTED. 03/31/2015 08/31/2015 Inactive levothyroxine 88 mcg tablet RxNorm: 099172 1 Tablet(s) PO daily 03/23/2015 05/06/2015 Inactive alprazolam 0.25 mg tablet RxNorm: 310247 Tablet(s) PO 03/23/2015 04/06/2015 Inactive levothyroxine 88 mcg tablet RxNorm: 924399 1 Tablet(s) PO daily 01/28/2015 03/22/2015 Inactive levothyroxine 88 mcg tablet RxNorm: 264364 1 Tablet(s) PO daily 01/28/2015 01/27/2015 Inactive diltiazem ER 120 mg capsule,extended release RxNorm: 977305 1 Capsule(s) PO BID patient would like 4 months at a time 01/06/2015 09/28/2015 Inactive digoxin 125 mcg tablet RxNorm: 928112 Tablet(s) 1 TABLET(S) PO DAILY 12/24/2014 12/23/2014 Inactive pt will be paying palomares (On $4 list)Patient requests 90 days supply digoxin 125 mcg tablet RxNorm: 521956 Tablet(s) 1 TABLET(S) PO DAILY M W F Sat and 2 tabs on T TH 12/24/2014 05/06/2015 Inactive pt will be paying palomares (On $4 list)Patient requests 90 days supply dicyclomine 20 mg tablet RxNorm: 603241 1 Tablet(s) PO daily 11/17/2014 08/31/2015 Inactive one ac dinner and up to tid prn levothyroxine 88 mcg tablet RxNorm: 504529 1 Tablet(s) PO daily 11/03/2014 01/27/2015 Inactive Premarin 0.625 mg/gram vaginal cream RxNorm: 280056 1 APPLICATION VAG 1 APPLICATOR PER VAGINA 3 TIMES PER WEEK 11/03/2014 07/30/2015 Inactive digoxin 125 mcg tablet RxNorm: 039090 1 TABLET(S) PO DAILY 09/29/2014 12/23/2014 Inactive pt will be paying palomares (On $4 list)Patient requests 90 days supply digoxin 125 mcg tablet RxNorm: 709184 1 TABLET(S) PO DAILY 07/11/2014 04/06/2015 Inactive Vesicare 10 mg tablet RxNorm: 350143 1/2 Tablet(s) PO BID 05/20/2014 05/14/2015 Inactive Levaquin 500 mg tablet RxNorm: 311755 1 Tablet(s) PO daily 05/06/2014 05/08/2014 Inactive take probiotic BID while on ABT Levaquin 500 mg tablet RxNorm: 747487 1 Tablet(s) PO daily 05/02/2014 05/05/2014 Inactive take probiotic BID while on ABT diltiazem ER 120 mg capsule,extended release RxNorm: 695716 1 Capsule(s) PO BID patient would like 4 months at a time 04/29/2014 2015 Inactive Vesicare 10 mg tablet RxNorm: 853337 1/2 Tablet(s) PO BID 04/29/2014 05/19/2014 Inactive lisinopril 20 mg tablet RxNorm: 949649 1 Tablet(s) PO BID 03/20/2014 03/14/2015 Inactive diltiazem 90 mg tablet RxNorm: 696976 1/2 TABLET(S) PO QPM 03/04/2014 04/28/2014 Inactive also 180 q am diltiazem ER 120 mg capsule,extended release RxNorm: 418752 1 Capsule(s) PO daily patient would like 4 months at a time 01/29/2014 04/28/2014 Inactive Vesicare 10 mg tablet RxNorm: 592724 1 Tablet(s) PO QHS 01/14/2014 04/28/2014 Inactive Coumadin 2 mg tablet RxNorm: 651302 4mg in AM and 1mg at night Tablet(s) PO daily as directed. 12/25/2013 03/30/2015 Inactive Metanx 3 mg-35 mg-2 mg tablet RxNorm: 1 Tablet(s) PO daily 12/25/2013 11/02/2015 Inactive digoxin 125 mcg tablet RxNorm: 902060 1 Tablet(s) PO daily 12/25/2013 09/28/2014 Inactive pt will be paying palomares (On $4 list) Coumadin 2 mg tablet RxNorm: 662335 7.5 wed 5mg other Tablet(s) PO as directed. 12/03/2013 12/24/2013 Inactive omeprazole 20 mg tablet,delayed release RxNorm: 194285 1 Tablet(s) PO BID 11/27/2013 04/28/2014 Inactive Coumadin 2 mg tablet RxNorm: 077985 5 mg daily Tablet(s) PO as directed. 11/26/2013 12/02/2013 Inactive 5 mg daily Xanax 0.25 mg tablet RxNorm: 294512 1 Tablet(s) PO Q6 PRN 11/11/2013 12/25/2013 Inactive alprazolam 0.25 mg tablet RxNorm: 961208 tablet oral 11/11/2013 03/22/2015 Inactive sucralfate 1 gram tablet RxNorm: 508075 1 Tablet(s) PO AC & HS 11/04/2013 11/03/2013 Inactive sucralfate 1 gram tablet RxNorm: 632397 1 Tablet(s) PO AC & HS 11/04/2013 01/02/2014 Inactive Synthroid 100 mcg tablet RxNorm: 229985 1 Tablet(s) PO daily 10/31/2013 10/25/2014 Inactive Synthroid 100 mcg tablet RxNorm: 766057 1 Tablet(s) PO daily 09/30/2013 10/29/2013 Inactive Vesicare 10 mg tablet RxNorm: 816016 1 Tablet(s) PO QHS 09/30/2013 01/13/2014 Inactive Lotemax 0.5 % eye ointment RxNorm: 6118630 ointment opht 09/06/2013 12/10/2013 Inactive levothyroxine 100 mcg tablet RxNorm: 213793 tablet oral 09/05/2013 11/02/2014 Inactive Synthroid 100 mcg tablet RxNorm: 956200 1 Tablet(s) PO daily 09/05/2013 09/29/2013 Inactive Prolia 60 mg/mL Sub-Q Syringe RxNorm: 158680 1 Milliliter(s) SQ 06/25/2013 11/02/2015 Inactive dicyclomine 20 mg tablet RxNorm: 876565 1 Tablet(s) PO daily 06/24/2013 06/18/2014 Inactive one ac dinner and up to tid prn omeprazole 20 mg tablet,delayed release RxNorm: 012909 1 Tablet(s) PO BID 06/24/2013 11/26/2013 Inactive Cipro 500 mg tablet RxNorm: 343832 1 Tablet(s) PO BID 06/20/2013 06/26/2013 Inactive diltiazem ER 120 mg capsule,extended release RxNorm: 772677 1 Capsule(s) PO daily patient would like 4 months at a time 06/03/2013 01/28/2014 Inactive Coumadin 2 mg tablet RxNorm: 022287 as directed Tablet(s) PO as directed. 05/29/2013 11/25/2013 Inactive 5 mg daily Synthroid 88 mcg tablet RxNorm: 492881 1 Tablet(s) PO daily 04/24/2013 04/23/2013 Inactive Synthroid 88 mcg tablet RxNorm: 684926 1 Tablet(s) PO daily 04/24/2013 07/28/2013 Inactive Premarin 0.625 mg/gram vaginal cream RxNorm: 007538 1 Application VAG 1 applicator per vagina 3 times per week 04/23/2013 04/17/2014 Inactive Influenza Virus Vaccine 0.5 mL RxNorm: IM 04/23/2013 04/23/2013 Inactive digoxin 125 mcg tablet RxNorm: 841691 1 Tablet(s) PO daily 02/20/2013 04/20/2013 Inactive pt will be paying palomares (On $4 list) Digox 125 mcg tablet RxNorm: 1546253 tablet oral 02/13/2013 03/20/2014 Inactive digoxin 125 mcg tablet RxNorm: 717401 1 Tablet(s) PO daily 02/13/2013 02/19/2013 Inactive diltiazem 90 mg tablet RxNorm: 309768 1/2 Tablet(s) PO QPM 02/13/2013 02/07/2014 Inactive also 180 q am Levoxyl 75 mcg tablet RxNorm: 353058 1 Tablet(s) PO 01/16/2013 04/23/2013 Inactive Coumadin 2 mg tablet RxNorm: 261337 6mg daily except 3mg on wed and mon Tablet(s) PO 01/15/2013 05/28/2013 Inactive 5 mg daily Coumadin 2 mg tablet RxNorm: 865479 6mg daily Tablet(s) PO 12/21/2012 01/14/2013 Inactive 5 mg daily silver sulfadiazine 1 % Topical Cream RxNorm: 166453 TOP apply to affected area with each dressing change 12/19/2012 12/25/2013 Inactive cephalexin 500 mg tablet RxNorm: 100681 1 Tablet(s) PO TID 12/11/2012 12/17/2012 Inactive digoxin 125 mcg tablet RxNorm: 0604598 1 Tablet(s) PO daily 10/30/2012 02/12/2013 Inactive digoxin 125 mcg tablet RxNorm: 3982486 2 tab tue thurs one other days Tablet(s) PO daily 10/23/2012 10/29/2012 Inactive lisinopril 10 mg tablet RxNorm: 744813 1 Tablet(s) PO daily 10/17/2012 08/14/2013 Inactive Cipro 500 mg tablet RxNorm: 140108 1 Tablet(s) PO BID 09/13/2012 09/19/2012 Inactive Coumadin 1 mg tablet RxNorm: 306598 1 Tablet(s) PO daily 09/03/2012 09/02/2012 Inactive Coumadin 1 mg tablet RxNorm: 564728 1 Tablet(s) PO daily 09/03/2012 12/21/2012 Inactive Coumadin 2 mg tablet RxNorm: 252967 Tablet(s) PO 07/25/2012 12/20/2012 Inactive 5 mg daily digoxin 125 mcg tablet RxNorm: 8329227 1 Tablet(s) PO daily 06/28/2012 10/22/2012 Inactive Coumadin 2 mg tablet RxNorm: 739823 Tablet(s) PO 06/27/2012 07/24/2012 Inactive 5mg daily except 4mg on monday Coumadin 2 mg tablet RxNorm: 891050 Tablet(s) PO 06/19/2012 06/26/2012 Inactive 5mg mon thur sat sun4mg mon(has 2mg and 1 mg tab) digoxin 125 mcg tablet RxNorm: 7037973 1 Tablet(s) PO daily 05/29/2012 06/27/2012 Inactive Coumadin 2 mg tablet RxNorm: 091541 Tablet(s) PO 05/15/2012 06/18/2012 Inactive 5mg e thur sat sun4mg mond(has 2mg and 1 mg tab) Coumadin 2 mg tablet RxNorm: 280020 Tablet(s) PO 04/25/2012 05/14/2012 Inactive 5mg tue thru sat4mg mon sun(has 2mg and 1 mg tab) Metanx 3 mg-35 mg-2 mg tablet RxNorm: 1 Tablet(s) PO BID 04/18/2012 12/24/2013 Inactive dicyclomine 20 mg tablet RxNorm: 038028 1 Tablet(s) PO 04/18/2012 06/23/2013 Inactive one ac dinner and up to tid prn digoxin 125 mcg tablet RxNorm: 1806854 Tablet(s) PO daily except .25 on Tuesdays and 04/09/2012 05/28/2012 Inactive omeprazole 20 mg tablet,delayed release RxNorm: 326658 1 Tablet(s) PO BID 04/09/2012 04/03/2013 Inactive digoxin 125 mcg tablet RxNorm: 5464226 1 Tablet(s) PO UD daily except none on Tuesdays and 03/13/2012 04/08/2012 Inactive Premarin 0.625 mg/gram Vaginal Cream RxNorm: 432220 1 Application VAG 1 applicator per vagina 3 times per week 02/20/2012 02/13/2013 Inactive omeprazole 20 mg tablet,delayed release RxNorm: 600623 1 Tablet(s) PO BID 02/13/2012 04/08/2012 Inactive Vesicare 10 mg tablet RxNorm: 291847 1 Tablet(s) PO QHS 02/13/2012 02/06/2013 Inactive Diflucan 150 mg tablet RxNorm: 772435 1 Tablet(s) PO daily 02/13/2012 02/19/2012 Inactive omeprazole 20 mg tablet,delayed release RxNorm: 223563 1 Tablet(s) PO BID 01/06/2012 02/12/2012 Inactive Calcium 600 + D(3) 600 mg (1,500)-200 unit Tab RxNorm: 111134 2 Tablet(s) PO BID 01/06/2012 08/31/2015 Inactive diltiazem 90 mg tablet RxNorm: 408918 1/2 Tablet(s) PO QPM 12/26/2011 02/12/2013 Inactive also 180 q am diltiazem ER 180 mg Cap RxNorm: 752276 1 Capsule(s) PO QAM 12/26/2011 04/08/2012 Inactive 45mg q hs Flagyl 500 mg Tab RxNorm: 120029 1 Tablet(s) PO BID 12/14/2011 12/20/2011 Inactive dicyclomine 10 mg Cap RxNorm: 465957 1 Capsule(s) PO AC & HS 12/01/2011 12/25/2011 Inactive Levaquin 500 mg Tab RxNorm: 538537 1 Tablet(s) PO daily 11/23/2011 11/29/2011 Inactive Rocephin 500 mg Solution for Injection RxNorm: 196857 Inj 11/23/2011 11/23/2011 Inactive acyclovir 400 mg Tab RxNorm: 661065 1 Tablet(s) PO QID 11/10/2011 11/19/2011 Inactive acyclovir 400 mg Tab RxNorm: 135198 1 Tablet(s) PO QID 11/10/2011 11/09/2011 Inactive lisinopril 20 mg Tab RxNorm: 906798 1 Tablet(s) PO daily 10/03/2011 11/27/2011 Inactive lisinopril 20 mg Tab RxNorm: 906791 1 Tablet(s) PO daily 08/08/2011 10/02/2011 Inactive Reclast 5 mg/100 mL IV RxNorm: 530731 Milliliter(s) IV Yearly 06/08/2011 01/16/[address] Hansen manages Rocephin 500 mg Solution for Injection RxNorm: 674948 1 Milliliter(s) Inj 03/04/2011 08/08/2011 Inactive Ceftin 500 mg Tab RxNorm: 978517 1 Tablet(s) PO BID 03/04/2011 08/08/2011 Inactive Vitamin D3 1,000 unit tablet RxNorm: 614927 2 Tablet(s) PO daily No Start Date Active Stool Softener 100 mg tablet RxNorm: 2663853 2 Tablet(s) PO QHS No Start Date Active Beano tablet RxNorm: 2-3 Tablet(s) PO as needed No Start Date Active Probiotic Pearls 15 mg (1 billion cell) capsule,delayed release RxNorm: 1 Capsule(s) PO daily No Start Date Active Lipitor 10 mg tablet RxNorm: 667215 1 Tablet(s) PO daily No Start Date Active Miralax 17 gram oral powder packet RxNorm: 514156 1/2 packet PO QHS No Start Date Active multivitamin Tab RxNorm: 1 Tablet(s) PO daily No Start Date Active Tylenol Extra Strength 500 mg tablet RxNorm: 602075 2 Tablet(s) PO as needed No Start Date Active Combigan 0.2 %-0.5 % eye drops RxNorm: 384326 1 Drop(s) OPH BID No Start Date Active 1 drop twice daily left eye Lexapro 5 mg tablet RxNorm: 480601 1 Tablet(s) PO daily No Start Date Active Tatiana Allergy 180 mg tablet RxNorm: 393859 1 Tablet(s) PO daily No Start Date Active Lotemax 0.5 % eye drops,suspension RxNorm: 918528 1 Drop(s) OPH right eye BID No Start Date Active Levoxyl 50 mcg tablet RxNorm: 134885 1 Tablet(s) PO daily No Start Date 01/15/2013 Inactive lisinopril-hydrochlorothiazide 20 mg-25 mg Tab RxNorm: 020227 1 Tablet(s) PO daily No Start Date 08/07/2011 Inactive Metanx 3 mg-35 mg-2 mg tablet RxNorm: 1 Tablet(s) PO daily No Start Date 04/17/2012 Inactive diltiazem CD 120 mg capsule,extended release 24 hr RxNorm: 012266 1 Capsule(s) PO daily No Start Date 09/28/2015 Inactive lisinopril 20 mg tablet RxNorm: 176042 Tablet(s) PO No Start Date Active Lumigan 0.01 % Eye Drops RxNorm: 1363300 1 Drop(s) OPH daily Left eye No Start Date 12/10/2013 Inactive prednisolone acetate 1 % Eye Drops, Susp RxNorm: 7282187 1 Drop(s) OPH BID 1 drop right eye am and hs No Start Date 11/02/2015 Inactive Eliquis 5 mg tablet RxNorm: 2371185 1 Tablet(s) PO BID No Start Date 06/08/2016 Inactive potassium gluconate (bulk) Misc RxNorm: Miscellaneous No Start Date 12/25/2011 Inactive Calcium 600 + D(3) 600 mg (1,500)-200 unit Tab RxNorm: 899067 3 Tablet(s) PO daily No Start Date 2012 Inactive Zyrtec 10 mg tablet RxNorm: 0286808 1 Tablet(s) PO daily No Start Date 08/02/2016 Inactive Synthroid 100 mcg tablet RxNorm: 614082 1 Tablet(s) PO daily No Start Date 09/04/2013 Inactive metoprolol succinate ER 50 mg tablet,extended release 24 hr RxNorm: 098897 1 Tablet(s) PO daily No Start Date 03/23/2016 Inactive Carafate 100 mg/mL oral suspension RxNorm: 797727 2 Teaspoon(s) PO as needed with reflux symptoms No Start Date 06/03/2018 Inactive Metanx 3 mg-35 mg-2 mg tablet RxNorm: 1 Tablet(s) PO daily 2pm No Start Date 11/02/2015 Inactive Lexapro 5 mg tablet RxNorm: 276156 1 Tablet(s) PO daily No Start Date 08/18/2015 Inactive Iron (dried) oral RxNorm: 81183 oral No Start Date 11/02/2015 Inactive timolol 0.5 % Eye Drops RxNorm: 775719 1 Drop(s) OPH daily left eye No Start Date 12/18/2013 Inactive multivitamin Cap RxNorm: 1 Capsule(s) PO daily No Start Date 12/25/2011 Inactive dicyclomine 10 mg Cap RxNorm: 319392 2 Capsule(s) PO daily No Start Date 11/30/2011 Inactive silver sulfadiazine 1 % Topical Cream RxNorm: 164726 TOP apply to affected area with each dressing change No Start Date 12/18/2012 Inactive magnesium oxide 400 mg Tab RxNorm: 001414 1 Tablet(s) PO daily No Start Date 11/02/2015 Inactive Pradaxa 75 mg Cap RxNorm: 2145990 1 Capsule(s) PO BID No Start Date 04/09/2012 Inactive magnesium oxide 400 mg Tab RxNorm: 856927 2 Tablet(s) PO daily magnesium plus zinc No Start Date 12/25/2011 Inactive biotin 1000 mg RxNorm: 1 PO daily No Start Date 12/25/2011 Inactive Synthroid 50 mcg Tab RxNorm: 471544 Tablet(s) PO No Start Date 12/25/2011 Inactive diltiazem ER 180 mg Cap RxNorm: 638500 1 Capsule(s) PO daily No Start Date 12/25/2011 Inactive 1 D 3 1000 iu Oral RxNorm: Oral No Start Date 12/25/2011 Inactive Coumadin 2 mg tablet RxNorm: 882127 Tablet(s) PO No Start Date 04/24/2012 Inactive 5mg tue ootb0mg mon sat sun(has 2mg and 1 mg tab) dicyclomine 20 mg tablet RxNorm: 120722 Tablet(s) PO No Start Date 04/17/2012 Inactive one ac dinner and up to tid prn lactobacillus acidophilus tablet RxNorm: 1 Tablet(s) PO daily No Start Date 11/03/2015 Inactive Eliquis 2.5 mg tablet RxNorm: 7803267 1 Tablet(s) PO BID No Start Date 07/25/2017 Inactive Levoxyl 75 mcg Tab RxNorm: 647486 1 Tablet(s) PO daily No Start Date 10/02/2011 Inactive digoxin 125 mcg tablet RxNorm: 2886857 1 Tablet(s) PO daily No Start Date 03/12/2012 Inactive pantoprazole 40 mg tablet,delayed release RxNorm: 869102 1 Tablet(s) PO BID No Start Date 01/04/2016 Inactive cyclobenzaprine 5 mg tablet RxNorm: 710091 1/2 Tablet(s) PO Q8 PRN No Start Date 10/24/2016 Inactive diltiazem 90 mg Tab RxNorm: 481640 1/2 Tablet(s) PO QPM No Start Date 12/25/2011 Inactive Mirapex 1 mg Tab RxNorm: 046865 1 Tablet(s) PO QHS No Start Date 12/25/2011 Inactive Xanax 0.25 mg tablet RxNorm: 049362 1 Tablet(s) PO Q6 PRN No Start Date 11/10/2013 Inactive Premarin 0.625 mg/gram Vaginal Cream RxNorm: 506755 1 Application VAG 1 applicator per vagina 3 times per week No Start Date 02/19/2012 Inactive Synthroid 75 mcg Tab RxNorm: 978541 1 Tablet(s) PO daily No Start Date 04/17/2012 Inactive lisinopril 40 mg Tab RxNorm: 753103 1 Tablet(s) PO daily No Start Date 12/25/2011 Inactive Glucosamine Chondroitin Complex Advanced 157ma-[id number]-411dk-1.65mg Tab RxNorm: 2 Tablet(s) PO daily No Start Date 08/08/2011 Inactive famotidine 20 mg tablet RxNorm: 053010 1 Tablet(s) PO QAM No Start Date 11/02/2015 Inactive cranberry extract 250 mg Tab RxNorm: 310076 2 Tablet(s) PO daily No Start Date 08/08/2011 Inactive Vitamin D3 1,000 unit capsule RxNorm: 212150 1 Capsule(s) PO daily No Start Date 08/31/2015 Inactive aspirin 81 mg Tab, Delayed Release RxNorm: 598720 1 Tablet(s) PO daily No Start Date 08/31/2015 Inactive diltiazem ER 120 mg capsule,extended release RxNorm: 889135 1 Capsule(s) PO daily patient would like 4 months at a time No Start Date 06/02/2013 Inactive omeprazole 20 mg Tab, Delayed Release RxNorm: 122845 2 Tablet(s) PO QHS No Start Date 2012 Inactive lisinopril 10 mg tablet RxNorm: 965988 1/2 Tablet(s) PO daily No Start Date 10/16/2012 Inactive Pred Forte 1 % Eye Drops RxNorm: 622204 1 Drop(s) OPH daily right eye No Start Date 12/25/2013 Inactive calcium carbonate 400 mg Chewable Tab RxNorm: 333006 1 Tablet(s) PO daily No Start Date 08/08/2011 Inactive Vesicare 10 mg tablet RxNorm: 033993 1 Tablet(s) PO QHS No Start Date 02/12/2012 Inactive Symbicort 160 mcg-4.5 mcg/actuation HFA aerosol inhaler RxNorm: 4039864 2 Puff(s) INH BID No Start Date 12/13/2017 Inactive potassium 99 mg tablet RxNorm: 1 Tablet(s) PO QPM No Start Date 12/25/2013 Inactive timolol 0.25 % Eye Drops RxNorm: 082431 1 Drop(s) OPH daily Left eye No Start Date 04/17/2012 Inactive diltiazem ER 90 mg capsule,extended release 12 hr RxNorm: 519367 1/2 Capsule(s) PO QPM No Start Date 04/28/2014 Inactive cyclobenzaprine 5 mg Tab RxNorm: 601336 1/2-1 Tablet(s) PO Q8 PRN No Start Date 12/25/2011 Inactive 1/2 - 1 tab q 8hrs prn muscle spasms Medication Administered Medication Codes Instructions Start Date Status Influenza Virus Vaccine 0.5 mL RxNorm: 04/23/2013 No longer Active Rocephin 500 mg Solution for Injection RxNorm: 300409 11/23/2011 No longer Active Immunizations Vaccine Codes [...] Assessments Condition Codes Effective Dates Encounter for screening mammogram for malignant neoplasm of breast ICD-10: Z12.31 ICD-9: V76.12 06/08/2018 Gastro-esophageal reflux disease without esophagitis ICD-10: K21.9 ICD-9: 530.81 06/04/2018 Atrophy of thyroid (acquired) ICD-10: E03.4 ICD-9: 244.8 06/04/2018 Essential (primary) hypertension ICD-10: I10 ICD-9: 401.1 06/04/2018 Essential (primary) hypertension ICD-10: I10 ICD-9: 401.9 01/31/2018 Other correction (current) drug therapy ICD-10: Z79.899 ICD-9: V58.83 01/31/2018 Encounter for general adult medical examination with abnormal findings ICD-10: Z00.01 ICD-9: V70.0 01/17/2018 Allergic rhinitis due to pollen ICD-10: J30.1 ICD-9: 477.0 12/14/2017 Cough ICD-10: R05 ICD-9: 786.2 12/14/2017 Chronic atrial fibrillation ICD-10: I48.2 ICD-9: 427.31 12/14/2017 Other allergic rhinitis ICD-10: J30.89 ICD-9: [...] Visit Reason For Visit Effective Dates Notes hoarseness 06/04/2018 hypertension 01/31/2018 Annual Medicare Wellness [...] Item Item Code Result Date Free T4 Dol565 FREE T4 1.19 ng/dL 05/08/2018 Digoxin Ord9 DIGOXIN 0.6 NG/ML 05/08/2018 Tsh Ord6 TSH (3rd IS) 10.58 uIU/mL 05/08/2018 Tsh Ord6 TSH (3rd IS) 1.07 uIU/mL 01/31/2018 Free T4 Syr310 FREE T4 1.63 ng/dL 01/31/2018 Digoxin Ord9 DIGOXIN 0.8 NG/ML 01/31/2018 C RAP A SC [id number] Strep A Negative 11/21/2016 Thyroid Antibodies 218347 THYROGLOBULIN ANTIBODY . 11/04/2016 Thyroid Antibodies 460941 THYROGLOBULIN ANTIBODY 919 IU/mL 11/04/2016 Thyroid Antibodies 368733 THYROID PEROXIDASE (TPO) AB . 11/04/2016 Thyroid Antibodies 393797 THYROID PEROXIDASE (TPO) AB 10 IU/mL 11/04/2016 Total T3 Ord42 TT3 0.64 ng/ml 11/03/2016 Free T4 Oge507 FREE T4 1.39 ng/dL 11/02/2016 Tsh Ord6 [...] Differential Ord2 RDW 13.8 % 05/26/2015 Pt Cvt9928 PT 25.0 seconds 05/26/2015 Pt Tmr5706 INR 2.4 05/26/2015 Pt Xyz8696 Low Intensity - 1.5-2.0 05/26/2015 Pt Oat8110 Mod intensity - 2.0-3.0 05/26/2015 Pt Wee3370 Hi intensity - 3.0-4.0 05/26/2015 Uric Acid [...] Digoxin Ord9 DIGOXIN 0.6 NG/ML 05/06/2015 Pt Cwm5600 PT 23.3 seconds 05/06/2015 Pt Tdo0624 INR 2.1 05/06/2015 Pt Uff7934 Low Intensity - 1.5-2.0 05/06/2015 Pt Vzs5335 Mod intensity - 2.0-3.0 05/06/2015 Pt Htp1048 Hi intensity - 3.0-4.0 05/06/2015 Free T4 Tfg808 FREE T4 1.65 ng/dL 05/06/2015 Comp Metabolic Pmx683 NA 132 mEq/L 05/06/2015 Comp Metabolic Krb275 K 4.1 mEq/L 05/06/2015 Comp Metabolic Kjg524 CL 98 mEq/L 05/06/2015 Comp Metabolic Qtb701 CO2 27.0 mEq/L 05/06/2015 Comp Metabolic Erl098 ANION GAP 11 05/06/2015 Comp Metabolic Ljw767 GLUCOSE 71 mg/dL 05/06/2015 Comp Metabolic Uxz556 Creat 0.7 mg/dL 05/06/2015 Comp Metabolic Gwo974 eGFR 82 ml/min/1.73m2 05/06/2015 Comp Metabolic Tcd253 BUN 16 mg/dL 05/06/2015 Comp Metabolic Itw506 B/C Ratio 22.2 Ratio 05/06/2015 Comp Metabolic Mav548 CALCIUM 9.4 mg/dL 05/06/2015 Comp Metabolic Igv145 ALK PHOS 60 U/L 05/06/2015 Comp Metabolic Ggx531 AST(SGOT) 22 U/L 05/06/2015 Comp Metabolic Bhd564 ALT(SGPT) 24 U/L 05/06/2015 Comp Metabolic Glw805 BILI T 0.8 mg/dL 05/06/2015 Comp Metabolic Wbr426 ALBUMIN 4.3 g/dL 05/06/2015 Comp Metabolic Vut129 TPRO 7.6 g/dL 05/06/2015 Comp Metabolic Qie450 GLOB 3.3 g/dL 05/06/2015 Comp Metabolic Lij037 A/G Ratio 1.3 Ratio 05/06/2015 Comp Metabolic Rqw456 Osmo 264 mOsmo 05/06/2015 DIGOXIN 4954662 DIGOXIN 1.1 NG/ML 05/15/2013 PT/MC 3716358 PRO TIME 21.7 SEC 05/15/2013 PT/MC 5616763 INR MCMC 2.0 05/15/2013 CHEM 14 5787574 AST 24 U/L 04/23/2013 CHEM 14 1272451 ALT 31 IU/L 04/23/2013 CHEM 14 8829225 BUN 13 MG/DL 04/23/2013 CHEM 14 8264965 ALBUMIN 4.1 GM/DL 04/23/2013 CHEM 14 6263786 CHLORIDE 103 MMOL/L 04/23/2013 CHEM 14 8793462 BILI TOT 0.5 MG/DL 04/23/2013 CHEM 14 7170405 ALK PHOS 44 U/L 04/23/2013 CHEM 14 6186224 SODIUM 137 MMOL/L 04/23/2013 CHEM 14 1537901 CREATININE 0.61 MG/DL 04/23/2013 CHEM 14 7258315 CALCIUM 9.5 MG/DL 04/23/2013 CHEM 14 8566823 POTASSIUM 4.0 MMOL/L 04/23/2013 CHEM 14 5623570 PROT TOT 6.6 GM/DL 04/23/2013 CHEM 14 1323014 GLUCOSE 99 MG/DL 04/23/2013 CHEM 14 0274502 BICARB 27 MMOL/L 04/23/2013 CHEM 14 0850670 ANION GAP 7 MEQ/L 04/23/2013 GFR CALC 7430645 GFR AA >60 ML/MIN 04/23/2013 GFR CALC 7982552 GFR NON-AA >60 ML/MIN 04/23/2013 TSH 4204584 TSH 4.204 uIU/ML 04/23/2013 CBC 6686446 WBC 6.7 10e9/L 04/23/2013 CBC 8649598 RBC 4.19 10e12/L 04/23/2013 CBC 5432668 HGB 13.2 g/dL 04/23/2013 CBC 6315428 HCT DET 39.2 % 04/23/2013 CBC 9618273 MCV 93.6 fL 04/23/2013 CBC 2686735 MCH 31.5 pg 04/23/2013 CBC 3023418 MCHC 33.7 g/dL 04/23/2013 CBC 9773015 PLT 202 10e9/L 04/23/2013 CBC 9313101 MPV 11.4 fL 04/23/2013 CBC 9469457 YANIRA % 70.5 % 04/23/2013 CBC 9108398 LY % 19.6 % 04/23/2013 CBC 6092468 MON % 8.2 % 04/23/2013 CBC 4629674 EOS % 1.6 % 04/23/2013 CBC 7912305 BASO % 0.1 % 04/23/2013 CBC 9499905 RDW 13.7 % 04/23/2013 CBC 1805645 ABS YANIRA 4.72 10e9/L 04/23/2013 CBC 6271328 ABS LYMPH 1.31 10e9/L 04/23/2013 CBC 3208699 ABS MONO 0.55 10e9/L 04/23/2013 CBC 1033783 ABS EOS 0.11 10e9/L 04/23/2013 CBC 6535729 ABS BASO 0.01 10e9/L 04/23/2013 CBC 2445457 RDW-SD 45.7 fL 04/23/2013 PT/MC 1250410 PRO TIME 13.4 SEC 12/17/2012 PT/MC 2702003 INR MCMC 1.0 12/17/2012 PT/MC 7404507 PRO TIME 16.6 SEC 12/14/2012 PT/MC 1309391 INR MCMC 1.4 12/14/2012 PT/MC 3538123 PRO TIME 27.2 SEC 12/11/2012 PT/MC 3167474 INR MCMC 2.6 12/11/2012 DIGOXIN 0418828 DIGOXIN 2.1 NG/ML 03/08/2012 GFR CALC 1249815 GFR AA >60 ML/MIN 03/08/2012 GFR CALC 8178954 GFR NON-AA >60 ML/MIN 03/08/2012 CHEM 14 20280112 AST 16 U/L 03/08/2012 CHEM 14 20280112 ALT 14 IU/L 03/08/2012 CHEM 14 6570752 BUN 10 MG/DL 03/08/2012 CHEM 14 8284959 ALBUMIN 4.2 GM/DL 03/08/2012 CHEM 14 7399346 CHLORIDE 100 MMOL/L 03/08/2012 CHEM 14 20280112 BILI TOT 0.5 MG/DL 03/08/2012 CHEM 14 0764688 ALK PHOS 59 U/L 03/08/2012 CHEM 14 0302843 SODIUM 136 MMOL/L 03/08/2012 CHEM 14 20280112 CREATININE 0.65 MG/DL 03/08/2012 CHEM 14 4046964 CALCIUM 9.4 MG/DL 03/08/2012 CHEM 14 2751754 POTASSIUM 3.9 MMOL/L 03/08/2012 CHEM 14 6164095 PROT TOT 6.7 GM/DL 03/08/2012 CHEM 14 7849139 GLUCOSE 90 MG/DL 03/08/2012 CHEM 14 0812080 BICARB 30 MMOL/L 03/08/2012 CHEM 14 6128628 ANION GAP 6 MEQ/L 03/08/2012 CHEM 14 0340122 AST 16 U/L 11/23/2011 CHEM 14 9318864 ALT 14 IU/L 11/23/2011 CHEM 14 9594335 BUN 11 MG/DL 11/23/2011 CHEM 14 3482918 ALBUMIN 4.1 GM/DL 11/23/2011 CHEM 14 6944628 CHLORIDE 100 MMOL/L 11/23/2011 CHEM 14 4597288 BILI TOT 0.5 MG/DL 11/23/2011 CHEM 14 4577046 ALK PHOS 50 U/L 11/23/2011 CHEM 14 3451784 SODIUM 135 MMOL/L 11/23/2011 CHEM 14 9594667 CREATININE 0.57 MG/DL 11/23/2011 CHEM 14 4923195 CALCIUM 9.1 MG/DL 11/23/2011 CHEM 14 2577704 POTASSIUM 4.5 MMOL/L 11/23/2011 CHEM 14 3826473 PROT TOT 6.5 GM/DL 11/23/2011 CHEM 14 1373733 GLUCOSE 89 MG/DL 11/23/2011 CHEM 14 4392074 BICARB 28 MMOL/L 11/23/2011 CHEM 14 6236847 ANION GAP 7 MEQ/L 11/23/2011 GFR CALC 7813744 GFR AA >60 ML/MIN 11/23/2011 GFR CALC 1778255 GFR NON-AA >60 ML/MIN 11/23/2011 CBC 1030041 WBC 5.1 10e9/L 11/23/2011 CBC 2688139 RBC 4.06 10e12/L 11/23/2011 CBC 9568005 HGB 12.5 g/dL 11/23/2011 CBC 6775482 HCT DET 37.3 % 11/23/2011 CBC 1904972 MCV 91.9 fL 11/23/2011 CBC 2460628 MCH 30.8 pg 11/23/2011 CBC 5998106 MCHC 33.5 g/dL 11/23/2011 CBC 2579009 PLT 222 10e9/L 11/23/2011 CBC 4219845 MPV 10.8 fL 11/23/2011 CBC 7578884 YANIRA % 64.2 % 11/23/2011 CBC 5836748 LY % 22.3 % 11/23/2011 CBC 7989094 MON % 11.3 % 11/23/2011 CBC 5947129 EOS % 1.8 % 11/23/2011 CBC 4380525 BASO % 0.4 % 11/23/2011 CBC 8756910 RDW 13.6 % 11/23/2011 CBC 4744770 ABS YANIRA 3.27 10e9/L 11/23/2011 CBC 1746315 ABS LYMPH 1.14 10e9/L 11/23/2011 CBC 4161710 ABS MONO 0.58 10e9/L 11/23/2011 CBC 3912311 ABS EOS 0.09 10e9/L 11/23/2011 CBC 9633757 ABS BASO 0.02 10e9/L 11/23/2011 CBC 1851742 RDW-SD 44.5 fL 11/23/2011 UA 15850 Specific Thompson 1.005 03/04/2011 UA 23354 PH 6 03/04/2011 UA 22999 GLUCOSE N 03/04/2011 UA 77082 Protein N 03/04/2011 UA 40012 Blood ++ 03/04/2011 UA 82446 Bilirubin N 03/04/2011 UA 17502 Ketones N 03/04/2011 UA 33802 Urobilinogen N 03/04/2011 UA 43460 Nitrite N 03/04/2011 UA 69015 Leukocytes N 03/04/2011 URINALYSIS NONAUTO W/O SCOPE 97212 Specific Thompson 1.010 DateTime(Free Text in Aprima) URINALYSIS NONAUTO W/O SCOPE 74733 PH 6.5 DateTime(Free Text in Aprima) URINALYSIS NONAUTO W/O SCOPE 78901 GLUCOSE neg DateTime(Free Text in Aprima) URINALYSIS NONAUTO W/O SCOPE 10158 Protein neg DateTime(Free Text in Aprima) URINALYSIS NONAUTO W/O SCOPE 24072 Blood 3+ DateTime(Free Text in Aprima) URINALYSIS NONAUTO W/O SCOPE 59965 Bilirubin neg DateTime(Free Text in Aprima) URINALYSIS NONAUTO W/O SCOPE 76692 Ketones neg DateTime(Free Text in Aprima) URINALYSIS NONAUTO W/O SCOPE 49172 Urobilinogen neg DateTime(Free Text in Aprima) URINALYSIS NONAUTO W/O SCOPE 85812 Nitrite neg DateTime(Free Text in Aprima) URINALYSIS NONAUTO W/O SCOPE 04068 Leukocytes neg DateTime(Free Text in Aprima) URINALYSIS NONAUTO W/O SCOPE 74223 Specific Thompson 1.010 DateTime(Free Text in Aprima) URINALYSIS NONAUTO W/O SCOPE 95626 PH 5 DateTime(Free Text in Aprima) URINALYSIS NONAUTO W/O SCOPE 80094 GLUCOSE neg DateTime(Free Text in Aprima) URINALYSIS NONAUTO W/O SCOPE 85204 Protein neg DateTime(Free Text in Aprima) URINALYSIS NONAUTO W/O SCOPE 43777 Blood 3+ DateTime(Free Text in Aprima) URINALYSIS NONAUTO W/O SCOPE 14668 Bilirubin neg DateTime(Free Text in Aprima) URINALYSIS NONAUTO W/O SCOPE 76943 Ketones neg DateTime(Free Text in Aprima) URINALYSIS NONAUTO W/O SCOPE 95976 Urobilinogen neg DateTime(Free Text in Aprima) URINALYSIS NONAUTO W/O SCOPE 11234 Nitrite neg DateTime(Free Text in Aprima) URINALYSIS NONAUTO W/O SCOPE 94692 Leukocytes neg DateTime(Free Text in Aprima) URINALYSIS NONAUTO W/O SCOPE 39982 Specific Thompson 1.005 DateTime(Free Text in Aprima) URINALYSIS NONAUTO W/O SCOPE 41209 PH 8.5 DateTime(Free Text in Aprima) URINALYSIS NONAUTO W/O SCOPE 04610 GLUCOSE neg DateTime(Free Text in Aprima) URINALYSIS NONAUTO W/O SCOPE 80742 Protein neg DateTime(Free Text in Aprima) URINALYSIS NONAUTO W/O SCOPE 48312 Blood 1+ DateTime(Free Text in Aprima) URINALYSIS NONAUTO W/O SCOPE 62307 Bilirubin neg DateTime(Free Text in Aprima) URINALYSIS NONAUTO W/O SCOPE 71824 Ketones neg DateTime(Free Text in Aprima) URINALYSIS NONAUTO W/O SCOPE 89054 Urobilinogen neg DateTime(Free Text in Aprima) URINALYSIS NONAUTO W/O SCOPE 99297 Nitrite neg DateTime(Free Text in Aprima) URINALYSIS NONAUTO W/O SCOPE 12022 Leukocytes neg DateTime(Free Text in Aprima) URINALYSIS NONAUTO W/O SCOPE 05259 Specific Thompson 1.005 DateTime(Free Text in Aprima) URINALYSIS NONAUTO W/O SCOPE 26240 PH 7 DateTime(Free Text in Aprima) URINALYSIS NONAUTO W/O SCOPE 16121 GLUCOSE neg DateTime(Free Text in Aprima) URINALYSIS NONAUTO W/O SCOPE 78271 Protein neg DateTime(Free Text in Aprima) URINALYSIS NONAUTO W/O SCOPE 08996 Blood large DateTime(Free Text in Aprima) URINALYSIS NONAUTO W/O SCOPE 58092 Bilirubin neg DateTime(Free Text in Aprima) URINALYSIS NONAUTO W/O SCOPE 78412 Ketones neg DateTime(Free Text in Aprima) URINALYSIS NONAUTO W/O SCOPE 80184 Urobilinogen 0.2 DateTime(Free Text in Aprima) URINALYSIS NONAUTO W/O SCOPE 14743 Nitrite neg DateTime(Free Text in Aprima) URINALYSIS NONAUTO W/O SCOPE 92049 Leukocytes neg DateTime(Free Text in Aprima) URINALYSIS NONAUTO W/O SCOPE 92158 Specific Thompson 1.005 DateTime(Free Text in Aprima) URINALYSIS NONAUTO W/O SCOPE 55317 PH 7.5 DateTime(Free Text in Aprima) URINALYSIS NONAUTO W/O SCOPE 23519 GLUCOSE DateTime(Free Text in Aprima) URINALYSIS NONAUTO W/O SCOPE 30090 Protein trace DateTime(Free Text in Aprima) URINALYSIS NONAUTO W/O SCOPE 89365 Blood 4+ DateTime(Free Text in Aprima) URINALYSIS NONAUTO W/O SCOPE 19928 Bilirubin DateTime(Free Text in Aprima) URINALYSIS NONAUTO W/O SCOPE 37845 Ketones DateTime(Free Text in Aprima) URINALYSIS NONAUTO W/O SCOPE 26625 Urobilinogen DateTime(Free Text in Aprima) URINALYSIS NONAUTO W/O SCOPE 28992 Nitrite DateTime(Free Text in Aprima) URINALYSIS NONAUTO W/O SCOPE 94748 Leukocytes trace DateTime(Free Text in Aprima) Review of Systems System Result Effective Dates Constitutional No recent illness 06/04/2018 Constitutional No [...] FLU VACC PRSV FREE INC ANTIG CPT-4: 75029 03/27/2017 PPPS, SUBSEQ VISIT CPT- 4: G0439 01/23/2017 URINALYSIS NONAUTO W/O SCOPE CPT-4: 89734 05/17/2016 ADMIN INFLUENZA VIRUS VAC CPT-4: G0008 03/24/2016 FLU VACC PRSV FREE INC ANTIG CPT-4: 30474 03/24/2016 ADMIN PNEUMOCOCCAL VACCINE SNOMED CT: 03910675 CPT-4: G0009 05/13/2015 PNEUMOCOCCAL VACC [address]: 09332998 CPT-4: 03005 05/13/2015 Pneumococcal Polysaccharide Vaccine, 23-Valent, Ad Assigned to/Mela Bledsoe CPT-4: 83946Ctrquzw 07/11/2014 ADMIN PNEUMOCOCCAL VACCINE SNOMED CT: 82954700 CPT-4: G0009 07/11/2014 URINALYSIS NONAUTO W/O SCOPE CPT-4: 84534 05/14/2014 URINALYSIS NONAUTO W/O SCOPE CPT-4: 19100 05/06/2014 URINALYSIS NONAUTO W/O SCOPE CPT-4: 56371 04/29/2014 ADMIN INFLUENZA VIRUS VAC CPT-4: G0008 03/20/2014 FLU VAC NO PRSV 4 SCOTT 3 YRS+ Assigned to/Rakan Mela CPT-4: 07825Wcokgwy 03/20/2014 URINALYSIS NONAUTO W/O SCOPE CPT-4: 81267 07/29/2013 URINALYSIS NONAUTO W/O SCOPE CPT-4: 50799 07/01/2013 URINALYSIS NONAUTO W/O SCOPE CPT-4: 38011 06/20/2013 ROUTINE VENIPUNCTURE CPT- 4: 34964 05/15/2013 ROUTINE VENIPUNCTURE CPT- 4: 36280 04/23/2013 ADMIN INFLUENZA VIRUS VAC CPT-4: G0008 04/23/2013 FLULAVAL VACC, 3 YRS & >, IM CPT-4: Q2036 04/23/2013 ROUTINE VENIPUNCTURE CPT- 4: 11428 12/17/2012 ROUTINE VENIPUNCTURE CPT- 4: 06441 12/14/2012 ROUTINE VENIPUNCTURE CPT- 4: 14504 12/11/2012 PRESCRIP TRANSMIT VIA ERX SY CPT-4: G8553 12/11/2012 PRESCRIP TRANSMIT VIA ERX SY CPT-4: G8553 10/30/2012 URINALYSIS NONAUTO W/O SCOPE CPT-4: 66263 09/13/2012 ADMIN INFLUENZA VIRUS VAC CPT-4: G0008 04/18/2012 FLULAVAL VACC, 3 YRS & >, IM CPT-4: Q2036 04/18/2012 URINALYSIS NONAUTO W/O SCOPE CPT-4: 64841 03/13/2012 ROUTINE VENIPUNCTURE CPT- 4: 99774 03/08/2012 URINALYSIS NONAUTO W/O SCOPE CPT-4: 24676 02/13/2012 PRESCRIP TRANSMIT VIA ERX SY CPT-4: G8553 02/13/2012 ROCEPHIN, PER 250 MG CPT- 4: J0696 11/23/2011 ROUTINE VENIPUNCTURE CPT- 4: 57552 11/23/2011 URINALYSIS NONAUTO W/O SCOPE CPT-4: 57274 11/23/2011 PRESCRIP TRANSMIT VIA ERX SY CPT-4: G8553 11/23/2011 REMOVE IMPACTED EAR WAX UNI CPT-4: 86674 10/17/2011 PRESCRIP TRANSMIT VIA ERX SY CPT-4: G8553 10/03/2011 PRESCRIP TRANSMIT VIA ERX SY CPT-4: G8553 08/08/2011 URINALYSIS NONAUTO W/O SCOPE CPT-4: 60535 03/15/2011 URINALYSIS NONAUTO W/O SCOPE CPT-4: 39107 03/04/2011 THER/PROPH/DIAG INJ SC/IM CPT-4: 35798 03/04/2011 ROCEPHIN, PER 250 MG CPT- 4: J0696 03/04/2011 Vital Signs Date Vital 06/04/2018 Blood Pressure 1: 124/72 Code: 8480-6 BMI: 21.3 Code: 64045-8 Heart Rate 1: 98 bpm Height: 5' Weight: 109 lbs 01/31/2018 Blood Pressure 1: 116/68 Code: 8480-6 BMI: 21.1 Code: 84316-0 Heart Rate 1: 89 bpm Height: 5' SpO2: 98% Weight: 108 lbs 01/17/2018 Blood Pressure 1: 134/74 Code: 8480-6 BMI: 21.3 Code: 56677-4 Heart Rate 1: 74 bpm Height: 5' SpO2: 96% Waist Measure (cm): 71 cm Weight: 109 lbs 12/14/2017 Blood Pressure 1: 150/78 Code: 8480-6 BMI: 21.5 Code: 05661-5 Heart Rate 1: 77 bpm Height: 5' SpO2: 98% Temperature: 36.7 (C) / 98.1 (F) Weight: 110 lbs 12/07/2017 Blood Pressure 1: 134/70 Code: 8480-6 Heart Rate 1: 76 bpm Height: SpO2: 98% Temperature: 36.8 (C) / 98.2 (F) Weight: 11/14/2017 Blood Pressure 1: 152/84 Code: 8480-6 BMI: 21.9 Code: 27151-0 Heart Rate 1: 95 bpm Height: 5' SpO2: 93% Weight: 112 lbs 03/27/2017 Blood Pressure 1: 122/70 Code: 8480-6 BMI: 21.3 Code: 87653-1 Heart Rate 1: 75 bpm Height: 5' Weight: 109 lbs 01/23/2017 BMI: 21.5 Code: 85335-6 Height: 5' Weight: 110 lbs 01/19/2017 Blood Pressure 1: 112/60 Code: 8480-6 BMI: 21.5 Code: 13238-8 Heart Rate 1: 54 bpm Height: 5' SpO2: 97% Weight: 110 lbs 11/29/2016 Blood Pressure 1: 126/68 Code: 8480-6 Height: 5' Weight: 11/23/2016 Blood Pressure 1: 130/72 Code: 8480-6 BMI: 21.9 Code: 08289-5 Heart Rate 1: 48 bpm Height: 5' SpO2: 97% Temperature: 36.7 (C) / 98.0 (F) Weight: 112 lbs 11/21/2016 Blood Pressure 1: 134/76 Code: 8480-6 BMI: 21.9 Code: 92629-3 Heart Rate 1: 41 bpm Height: 5' SpO2: 94% Temperature: 36.9 (C) / 98.4 (F) Weight: 112 lbs 11/08/2016 Blood Pressure 1: 126/74 Code: 8480-6 Heart Rate 1: 82 bpm Height: 5' SpO2: 94% Weight: 11/02/2016 Blood Pressure 1: 112/66 Code: 8480-6 Heart Rate 1: 72 bpm Height: 5' SpO2: 95% Weight: 10/27/2016 Blood Pressure 1: 130/64 Code: 8480-6 BMI: 21.7 Code: 13132-2 Heart Rate 1: 81 bpm Height: 5' SpO2: 96% Weight: 111 lbs 08/31/2016 Blood Pressure 1: 132/72 Code: 8480-6 BMI: 22.5 Code: 63209-0 Heart Rate 1: 66 bpm Height: 5' Weight: 115 lbs 07/27/2016 Blood Pressure 1: 166/74 Code: 8480-6 BMI: 23.2 Code: 81668-3 Heart Rate 1: 48 bpm Height: 5' SpO2: 90% Temperature: 36.8 (C) / 98.2 (F) Weight: 119 lbs 06/23/2016 Blood Pressure 1: 128/70 Code: 8480-6 BMI: 22.3 Code: 67473-5 Heart Rate 1: 75 bpm Height: 5' SpO2: 97% Weight: 114 lbs 06/09/2016 BMI: 22.7 Code: 77448-5 Heart Rate 1: 73 bpm Height: 5' SpO2: 97% Weight: 116 lbs 05/25/2016 Blood Pressure 1: 138/62 Code: 8480-6 BMI: 22.8 Code: 38040-8 Heart Rate 1: 76 bpm Height: 5' Weight: 117 lbs 05/17/2016 Blood Pressure 1: 116/70 Code: 8480-6 BMI: 22.8 Code: 30566-5 Heart Rate 1: 74 bpm Height: 5' SpO2: 94% Weight: 117 lbs 03/24/2016 Blood Pressure 1: 154/78 Code: 8480-6 BMI: 22.5 Code: 43078-1 Heart Rate 1: 78 bpm Height: 5' SpO2: 97% Weight: 115 lbs 02/02/2016 Blood Pressure 1: 132/70 Code: 8480-6 BMI: 22.3 Code: 96437-9 Heart Rate 1: 74 bpm Height: 5' SpO2: 94% Weight: 114 lbs 2016 Blood Pressure 1: 120/62 Code: 8480-6 BMI: 22.0 Code: 12151-1 Heart Rate 1: 68 bpm Height: 5' Weight: 112 lbs 8 oz 12/21/2015 Blood Pressure 1: 122/82 Code: 8480-6 BMI: 21.9 Code: 29931-5 Heart Rate 1: 83 bpm Height: 5' SpO2: 93% Temperature: 37.1 (C) / 98.7 (F) Weight: 112 lbs 11/03/2015 Blood Pressure 1: 122/72 Code: 8480-6 BMI: 22.4 Code: 36680-2 Heart Rate 1: 62 bpm Height: 5' Weight: 114 lbs 8 oz 10/19/2015 Blood Pressure 1: 138/62 Code: 8480-6 BMI: 21.1 Code: 88229-2 Heart Rate 1: 79 bpm Height: 5' Weight: 108 lbs 10/13/2015 Blood Pressure 1: 120/62 Code: 8480-6 BMI: 21.0 Code: 55989-9 Heart Rate 1: 76 bpm Height: 5' SpO2: 98% Weight: 108 lbs 09/29/2015 Blood Pressure 1: 130/70 Code: 8480-6 BMI: 20.2 Code: 33925-1 Heart Rate 1: 72 bpm Height: 5' Weight: 104 lbs 09/15/2015 Blood Pressure 1: 128/78 Code: 8480-6 BMI: 19.9 Code: 41694-2 Heart Rate 1: 72 bpm Height: 5' Weight: 102 lbs 8 oz 09/01/2015 Blood Pressure 1: 128/68 Code: 8480-6 BMI: 19.8 Code: 81859-2 Height: 5' Weight: 102 lbs 05/26/2015 Blood Pressure 1: 140/68 Code: 8480-6 BMI: 19.0 Code: 08828-0 Heart Rate 1: 70 bpm Height: 5' Weight: 98 lbs 05/21/2015 Blood Pressure 1: 140/78 Code: 8480-6 BMI: 19.2 Code: 23348-1 Heart Rate 1: 85 bpm Height: 5' SpO2: 95% Weight: 99 lbs 05/07/2015 Blood Pressure 1: 140/82 Code: 8480-6 BMI: 19.0 Code: 18277-7 Heart Rate 1: 76 bpm Height: 5' Weight: 98 lbs 03/23/2015 Blood Pressure 1: 142/60 Code: 8480-6 BMI: 18.6 Code: 28438-4 Heart Rate 1: 52 bpm Height: 5' Weight: 96 lbs 03/09/2015 Blood Pressure 1: 138/74 Code: 8480-6 BMI: 18.8 Code: 32344-7 Heart Rate 1: 60 bpm Height: 5' Weight: 97 lbs 10/30/2014 Blood Pressure 1: 112/82 Code: 8480-6 BMI: 19.0 Code: 61350-7 Heart Rate 1: 64 bpm Height: 5' Weight: 98 lbs 07/11/2014 Blood Pressure 1: 146/70 Code: 8480-6 BMI: 18.8 Code: 08105-8 Heart Rate 1: 68 bpm Height: 5' Weight: 97 lbs 05/20/2014 Blood Pressure 1: 142/76 Code: 8480-6 BMI: 18.6 Code: 61312-7 Heart Rate 1: 78 bpm Height: 5' Weight: 96 lbs 04/29/2014 Blood Pressure 1: 138/62 Code: 8480-6 BMI: 18.3 Code: 33651-5 Heart Rate 1: 80 bpm Height: 5' Weight: 94 lbs 8 oz 03/20/2014 Blood Pressure 1: 142/68 Code: 8480-6 BMI: 18.6 Code: 89943-7 Heart Rate 1: 96 bpm Height: 5' Weight: 96 lbs 03/05/2014 Blood Pressure 1: 122/72 Code: 8480-6 BMI: 18.8 Code: 50699-3 Heart Rate 1: 82 bpm Height: 5' SpO2: 97% Weight: 97 lbs 01/29/2014 Blood Pressure 1: 124/78 Code: 8480-6 BMI: 18.8 Code: 71989-0 Heart Rate 1: 60 bpm Height: 5' Weight: 97 lbs 01/14/2014 Blood Pressure 1: 120/58 Code: 8480-6 BMI: 19.2 Code: 93691-5 Heart Rate 1: 56 bpm Height: 5' Temperature: 36.9 (C) / 98.4 (F) Weight: 99 lbs 12/25/2013 Blood Pressure 1: 118/78 Code: 8480-6 BMI: 19.2 Code: 71431-4 Heart Rate 1: 68 bpm Height: 5' Weight: 99 lbs 11/27/2013 Blood Pressure 1: 102/68 Code: 8480-6 BMI: 19.4 Code: 21504-2 Heart Rate 1: 56 bpm Height: 5' Weight: 100 lbs 09/12/2013 Blood Pressure 1: 142/62 Code: 8480-6 BMI: 19.7 Code: 02369-0 Heart Rate 1: 72 bpm Height: 5'1" Weight: 104 lbs 08/15/2013 Blood Pressure 1: 152/92 Code: 8480-6 Heart Rate 1: 96 bpm Weight: 102 lbs 08/01/2013 Blood Pressure 1: 122/68 Code: 8480-6 BMI: 19.1 Code: 07886-5 Heart Rate 1: 68 bpm Height: 5'1" Weight: 101 lbs 07/01/2013 Blood Pressure 1: 130/72 Code: 8480-6 BMI: 19.5 Code: 49504-6 Heart Rate 1: 80 bpm Height: 5'1" Temperature: 36.1 (C) / 97.0 (F) Weight: 103 lbs 05/29/2013 Blood Pressure 1: 126/72 Code: 8480-6 BMI: 19.3 Code: 24067-0 Heart Rate 1: 80 bpm Height: 5'1" Weight: 102 lbs 05/15/2013 Blood Pressure 1: 156/74 Code: 8480-6 BMI: 19.3 Code: 68858-6 Heart Rate 1: 88 bpm Height: 5'1" Weight: 102 lbs 04/23/2013 Blood Pressure 1: 140/82 Code: 8480-6 BMI: 19.3 Code: 85090-6 Heart Rate 1: 72 bpm Height: 5'1" Weight: 102 lbs 03/21/2013 Blood Pressure 1: 142/74 Code: 8480-6 Heart Rate 1: 92 bpm Weight: 103 lbs 01/16/2013 Blood Pressure 1: 120/56 Code: 8480-6 BMI: 20.0 Code: 02064-7 Heart Rate 1: 72 bpm Height: 5'1" Weight: 106 lbs 12/19/2012 Blood Pressure 1: 118/66 Code: 8480-6 Heart Rate 1: 84 bpm Weight: 12/10/2012 Blood Pressure 1: 132/62 Code: 8480-6 Heart Rate 1: 64 bpm Weight: 103 lbs 10/30/2012 Blood Pressure 1: 122/66 Code: 8480-6 BMI: 19.9 Code: 39806-1 Heart Rate 1: 61 bpm Height: 5'1" [...] 1: 118/72 Code: 8480-6 BMI: 21.0 Code: 61328-8 Heart Rate 1: 66 bpm Height: 5'1" Respiratory Rate: 16 bpm Weight: 111 lbs 2012 Blood Pressure 1: 122/62 Code: 8480-6 Heart Rate 1: 68 bpm Weight: 110 lbs 12/01/2011 Blood Pressure 1: 150/60 Code: 8480-6 BMI: 20.8 Code: 29655-4 Heart Rate 1: 60 bpm Height: 5'1" Respiratory Rate: 16 bpm Weight: 110 lbs 11/23/2011 Blood Pressure 1: 170/68 Code: 8480-6 BMI: 21.1 Code: 00194-1 Heart Rate 1: 64 bpm Height: 5'1" Temperature: 36.3 (C) / 97.3 (F) Weight: 111 lbs 8 oz 10/17/2011 Blood Pressure 1: 148/62 Code: 8480-6 Heart Rate 1: 74 bpm 10/03/2011 Blood Pressure 1: 102/48 Code: 8480-6 BMI: 21.4 Code: 57981-0 Heart Rate 1: 76 bpm Height: 5'1" Respiratory Rate: 16 bpm Weight: 113 lbs 08/08/2011 Blood Pressure 1: 128/60 Code: 8480-6 Heart Rate 1: 80 bpm Respiratory Rate: 16 bpm Weight: 113 lbs 05/09/2011 Blood Pressure 1: 130/62 Code: 8480-6 BMI: 20.7 Code: 83383-0 Heart Rate 1: 64 bpm Height: 5'1" Respiratory Rate: 16 bpm Weight: 109 lbs 8 oz 03/29/2011 Blood Pressure 1: 120/62 Code: 8480-6 BMI: 20.2 Code: 44214-3 Heart Rate 1: 66 bpm Height: 5'1" Respiratory Rate: 12 bpm Weight: 107 lbs 03/15/2011 Blood Pressure 1: 120/64 Code: 8480-6 BMI: 19.8 Code: 61140-1 Heart Rate 1: 76 bpm Height: 5'1" Respiratory Rate: 16 bpm Weight: 105 lbs Functional Status No Functional Status data History of Present Illness Symptom Name Status Result Effective Date Notes hoarseness Quality intermittent 06/04/2018 None hoarseness Onset [...] contacts 03/20/2014 sat next to neighbor in [place] who had tonsillitis sore throat Pertinent Findings [...] data Encounters Encounter Performer Location Codes Date ([id number]) 55913 EST. PATIENT, LEVEL IV Diagnosis: Essential (primary) hypertension[ICD10: I10] Diagnosis: Atrophy of thyroid (acquired)[ICD10: E03.4] Diagnosis: Gastro-esophageal reflux disease without esophagitis[ICD10: K21.9] Karma Bahena MD, [facility] CPT-4: 78825 06/04/2018 [id number]) 83084 EST. 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 PATIENT, LEVEL IV Diagnosis: Essential (primary) hypertension[ICD10: I10] Diagnosis: Chronic atrial fibrillation[ICD10: I48.2] Diagnosis: Allergic rhinitis due to pollen[ICD10: J30.1] Diagnosis: Cough[ICD10: R05] [facility] CPT-4: 62494 12/14/2017 46627 EST. PATIENT, LEVEL IV Diagnosis: Other allergic rhinitis[ICD10: J30.89] Katharine Bahena MD, [facility] CPT- 4: 10722 12/07/2017 ([id number]) 54448 EST. PATIENT, LEVEL IV Diagnosis: Essential (primary) hypertension[ICD10: I10] Diagnosis: Chronic atrial fibrillation[ICD10: I48.2] Diagnosis: Atrophy of thyroid (acquired)[ICD10: E03.4] Karma Bahena MD, [facility] CPT-4: 34289 11/14/2017 ([id number]) 51911 EST. PATIENT, LEVEL IV Diagnosis: Essential (primary) hypertension[ICD10: I10] Diagnosis: Localized edema[ICD10: R60.0] Diagnosis: Encounter for immunization[ICD10: Z23] Diagnosis: Age-related osteoporosis without current pathological fracture[ICD10: M81.0] Karma Bahena MD, [facility] CPT-4: 00771 03/27/2017 ([id number]) 60869 EST. PATIENT, LEVEL IV Diagnosis: Essential (primary) hypertension[ICD10: I10] Diagnosis: Chronic atrial fibrillation[ICD10: I48.2] Diagnosis: Dysphonia[ICD10: R49.0] Karma Bahena MD, [facility] CPT-4: 80115 01/19/2017 ([id number]) Miscellaneous no charge Diagnosis: Cough[ICD10: R05] Diagnosis: Acute upper respiratory infection, unspecified[ICD10: J06.9] Laura Bahena MD, [facility] CPT-4: 60523 11/29/2016 71762 EST. PATIENT, LEVEL III Diagnosis: Cough[ICD10: R05] Diagnosis: Acute laryngopharyngitis[ICD10: J06.0] Katharine Bahena MD, [facility] CPT- 4: 33297 11/23/2016 ([id number]) 85973 EST. PATIENT, LEVEL III Diagnosis: Acute laryngopharyngitis[ICD10: J06.0] Laura Bahena MD, [facility] CPT-4: 05022 11/21/2016 ([id number]) Miscellaneous no charge Diagnosis: Laceration without foreign body of right forearm, subsequent encounter[ICD10: S51.811D] Karma Bahena MD, [facility] CPT-4: 89350 11/17/2016 ([id number]) Miscellaneous no charge Diagnosis: Laceration without foreign body of right forearm, subsequent encounter[ICD10: S51.811D] Karma Bahena MD [facility] CPT-4: 68816 11/14/2016 ([id number]) Miscellaneous no charge Diagnosis: Laceration without foreign body of right forearm, subsequent encounter[ICD10: S51.811D] Karma Bahena MD [facility] CPT-4: 72749 11/11/2016 ([id number]) Miscellaneous no charge Diagnosis: Laceration without foreign body of right forearm, subsequent encounter[ICD10: S51.811D] Karma Bahena MD [facility] CPT-4: 51320 11/10/2016 ([id number]) 79645 EST. PATIENT, LEVEL II Diagnosis: Laceration without foreign body of right forearm, subsequent encounter[ICD10: S51.811D] Karma Bahena MD [facility] CPT-4: 06186 11/08/2016 ([id number]) 82150 EST. PATIENT, LEVEL IV Diagnosis: Atrophy of thyroid (acquired)[ICD10: E03.4] Diagnosis: Chronic atrial fibrillation[ICD10: I48.2] Diagnosis: Laceration without foreign body of right forearm, subsequent encounter[ICD10: S51.811D] Karma Bahena MD [facility] CPT-4: 91858 11/02/2016 ([id number]) 08030 EST. PATIENT, LEVEL III Diagnosis: Laceration without foreign body of right forearm, initial encounter[ICD10: S51.811A] Laura Bahena MD [facility] CPT-4: 49625 10/27/2016 ([id number]) 53379 EST. PATIENT, LEVEL IV Diagnosis: Essential (primary) hypertension[ICD10: I10] Diagnosis: Chronic atrial fibrillation[ICD10: I48.2] Karma Bahena MD [facility] CPT-4: 81619 08/31/2016 ([id number]) 65519 EST. PATIENT, LEVEL IV Diagnosis: Localized edema[ICD10: R60.0] Diagnosis: Essential (primary) hypertension[ICD10: I10] Diagnosis: Abdominal distension (gaseous)[ICD10: R14.0] Karma Bahena MD [facility] CPT-4: 75049 07/27/2016 ([id number]) 25628 EST. PATIENT, LEVEL IV Diagnosis: Essential (primary) hypertension[ICD10: I10] Diagnosis: Chronic atrial fibrillation[ICD10: I48.2] Diagnosis: Localized edema[ICD10: R60.0] Karma Bahena MD [facility] CPT-4: 91862 06/23/2016 ([id number]) 69759 EST. PATIENT, LEVEL III Diagnosis: Localized edema[ICD10: R60.0] Karma Bahena MD [facility] CPT-4: 59623 06/09/2016 ([id number]) 07995 EST. PATIENT, LEVEL III Diagnosis: Irritable bowel syndrome without diarrhea[ICD10: K58.9] Diagnosis: Pruritus ani[ICD10: L29.0] Karma Bahena MD [facility] CPT-4: 66884 05/25/2016 ([id number]) 29491 EST. PATIENT, LEVEL III Diagnosis: Abdominal distension (gaseous)[ICD10: R14.0] Diagnosis: Encounter for screening mammogram for malignant neoplasm of breast[ICD10: Z12.31] Karma Bahena MD [facility] CPT-4: 13208 05/17/2016 ([id number]) 70173 EST. PATIENT, LEVEL IV Diagnosis: Essential (primary) hypertension[ICD10: I10] Diagnosis: First degree hemorrhoids[ICD10: K64.0] Diagnosis: Encounter for immunization[ICD10: Z23] Karma Bahena MD [facility] CPT-4: 52421 03/24/2016 ([id number]) 44335 EST. 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 PATIENT, LEVEL III Diagnosis: Acute anal fissure[ICD10: K60.0] Karma Bahena MD [facility] CPT-4: 99138 2016 ([id number]) 66247 EST. PATIENT, LEVEL III Diagnosis: Allergic rhinitis due to pollen[ICD10: J30.1] Diagnosis: Acute upper respiratory infection, unspecified[ICD10: J06.9] Laura Bahena MD, [facility] CPT-4: 11417 12/21/2015 ([id number]) 26771 EST. PATIENT, LEVEL III Diagnosis: Essential (primary) hypertension[ICD10: I10] Diagnosis: Chronic atrial fibrillation[ICD10: I48.2] Karma Bahena MD, [facility] CPT-4: 18630 11/03/2015 ([id number]) Miscellaneous no charge Diagnosis: Impacted cerumen, right ear[ICD10: H61.21] Katharine Bahena MD, [facility] CPT-4: 70581 10/19/2015 72513 EST. PATIENT, LEVEL IV Diagnosis: Impacted cerumen, right ear[ICD10: H61.21] Diagnosis: Other allergic rhinitis[ICD10: J30.89] Katharine Bahena MD, [facility] CPT- 4: 37400 10/13/2015 ([id number]) 71006 EST. PATIENT, LEVEL IV Diagnosis: Essential (primary) hypertension[ICD10: I10] Diagnosis: Chronic atrial fibrillation[ICD10: I48.2] Diagnosis: Urge incontinence[ICD10: N39.41] Diagnosis: Age-related osteoporosis without current pathological fracture[ICD10: M81.0] Karma Bahena MD, [facility] CPT-4: 27019 09/29/2015 ([id number]) 21640 EST. PATIENT, LEVEL IV Diagnosis: Essential (primary) hypertension[ICD10: I10] Diagnosis: Chronic atrial fibrillation[ICD10: I48.2] Diagnosis: Irritable bowel syndrome without diarrhea[ICD10: K58.9] Diagnosis: Unspecified hemorrhoids[ICD10: K64.9] Karma Bahena MD, [facility] CPT-4: 22591 09/15/2015 ([id number]) 72765 EST. 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 PATIENT, LEVEL III Diagnosis: Hematuria, unspecified[ICD10: R31.9] Diagnosis: Other urethritis[ICD10: N34.2] Diagnosis: Other specified noninflammatory disorders of vagina[ICD10: N89.8] Karma Bahena MD, [facility] CPT-4: 59787 05/26/2015 55402 EST. PATIENT, LEVEL IV Diagnosis: Gout, unspecified[ICD10: M10.9] Karma Bahena MD, [facility] CPT-4: 19914 05/21/2015 ([id number]) 38394 EST. PATIENT, LEVEL IV Diagnosis: Chronic atrial fibrillation[ICD10: I48.2] Diagnosis: Irritable bowel syndrome without diarrhea[ICD10: K58.9] Diagnosis: Cystocele, unspecified[ICD10: N81.10] Diagnosis: Urge incontinence[ICD10: N39.41] Diagnosis: Fecal smearing[ICD10: R15.1] Diagnosis: Hypothyroidism, unspecified[ICD10: E03.9] Karma Bahena MD, [facility] CPT-4: 84518 05/07/2015 ([id number]) 14618 EST. PATIENT, LEVEL III Diagnosis: Atrial fibrillation[ICD9: 427.31] Diagnosis: Bloating[ICD9: 787.3] Karma Bahena MD, [facility] CPT-4: 55406 03/23/2015 ([id number]) 54784 EST. PATIENT, LEVEL IV Diagnosis: Abdominal pain[ICD9: 789.00] Diagnosis: Atrial fibrillation[ICD9: 427.31] Diagnosis: ENCNTR LONG-ANTICOAG USE[ICD9: V58.61] Karma Bahena MD, [facility] CPT-4: 04133 03/09/2015 ([id number]) 23830 EST. PATIENT, LEVEL IV Diagnosis: HEMATURIA NOS[ICD9: 599.70] Diagnosis: Atrial fibrillation[ICD9: 427.31] Diagnosis: HYPOTHYROIDISM[ICD9: 244.9] Karma Bahena MD, [facility] CPT-4: 26319 10/30/2014 ([id number]) 83693 EST. PATIENT, LEVEL IV Diagnosis: Atrial fibrillation[ICD9: 427.31] Diagnosis: ALLERGIC RHINITIS[ICD9: 477.9] Diagnosis: Need for pneumococcal vaccine[ICD9: V03.82] Diagnosis: Osteoarthritis[ICD9: 715.90] Diagnosis: Osteoporosis[ICD9: 733.00] Karma Bahena MD, [facility] CPT-4: 23421 07/11/2014 ([id number]) 77266 EST. PATIENT, LEVEL III Diagnosis: Urge incontinence[ICD9: 788.31] Diagnosis: Dysuria[ICD9: 788.1] Karma Bahena MD, [facility] CPT-4: 50935 05/20/2014 ([id number]) 11017 EST. PATIENT, LEVEL IV Diagnosis: Atrial fibrillation[ICD9: 427.31] Diagnosis: Hematuria[ICD9: 599.70] Diagnosis: Dysuria[ICD9: 788.1] Diagnosis: ESSENTIAL HYPERTENSION[ICD9: 401.9] Karma Bahena MD, [facility] CPT- 4: 74730 04/29/2014 ([id number]) 44602 EST. PATIENT, LEVEL IV Diagnosis: ESSENTIAL HYPERTENSION[ICD9: 401.9] Diagnosis: ALLERGIC RHINITIS[ICD9: 477.9] Karma Bahena MD, [facility] CPT-4: 60731 03/20/2014 ([id number]) 96822 EST. PATIENT, LEVEL IV Diagnosis: ESSENTIAL HYPERTENSION[ICD9: 401.9] Diagnosis: ATRIAL FIBRILLATION[ICD9: 427.31] Diagnosis: Irritable bowel[ICD9: 564.1] Karma Bahena MD, [facility] CPT-4: 53963 03/05/2014 ([id number]) 31473 EST. PATIENT, LEVEL IV Diagnosis: Esophageal reflux[ICD9: 530.81] Diagnosis: DIARRHEA[ICD9: 787.91] Diagnosis: ABDOM PAIN NOS SITE[ICD9: 789.00] Karma Bahena MD, [facility] CPT- 4: 91839 01/29/2014 ([id number]) 65598 EST. PATIENT, LEVEL III Diagnosis: Irritable bowel[ICD9: 564.1] Diagnosis: DIARRHEA[ICD9: 787.91] Laura Bahena MD [facility] CPT-4: 84898 01/14/2014 ([id number]) 85841 EST. PATIENT, LEVEL IV Diagnosis: ESSENTIAL HYPERTENSION[ICD9: 401.9] Diagnosis: ATRIAL FIBRILLATION[ICD9: 427.31] Diagnosis: URGE INCONTINENCE[ICD9: 788.31] Diagnosis: MALAISE AND FATIGUE[ICD9: 780.79] Diagnosis: Dyspnea[ICD9: 786.09] Karma Bahena MD [facility] CPT-4: 72755 12/25/2013 ([id number]) 68086 EST. PATIENT, LEVEL IV Diagnosis: ESSENTIAL HYPERTENSION[SNOMED: 62350993] Diagnosis: ATRIAL FIBRILLATION[ICD9: 427.31] Diagnosis: Abdominal pain[ICD9: 789.00] Diagnosis: ESOPHAGEAL REFLUX[ICD9: 530.81] Karma Bahena MD [facility] CPT-4: 50765 11/27/2013 ([id number]) 21747 EST. PATIENT, LEVEL IV Diagnosis: ESSENTIAL HYPERTENSION[SNOMED: 00284881] Diagnosis: ATRIAL FIBRILLATION[ICD9: 427.31] Diagnosis: Chronic osteoarthritis[ICD9: 715.90] Karma Bahena MD [facility] CPT- 4: 61076 09/12/2013 ([id number]) 19386 EST. PATIENT, LEVEL III Diagnosis: ESSENTIAL HYPERTENSION[SNOMED: 50237533] Diagnosis: Bruising[ICD9: 924.9] Diagnosis: ENCNTR LONG-RX USE NEC[ICD9: V58.69] Karma Bahena MD [facility] CPT- 4: 62795 08/15/2013 ([id number]) 85817 EST. PATIENT, LEVEL IV Diagnosis: ESSENTIAL HYPERTENSION[SNOMED: 69156738] Diagnosis: Hematuria[ICD9: 599.70] Diagnosis: Dysuria[ICD9: 788.1] Karma Bahena MD [facility] CPT-4: 73291 08/01/2013 ([id number]) 69734 EST. PATIENT, LEVEL III Diagnosis: UTI[ICD9: 599.0] Diagnosis: Hematuria[ICD9: 599.70] Laura Bahena MD [facility] CPT-4: 91958 07/01/2013 ([id number]) 22213 EST. PATIENT, LEVEL III Diagnosis: ATRIAL FIBRILLATION[ICD9: 427.31] Diagnosis: ESSENTIAL HYPERTENSION[SNOMED: 07099491] PARVEEN Freitas MD CPT-4: 79221 05/29/2013 ([id number]) 69422 EST. PATIENT, LEVEL IV Diagnosis: Atrial fibrillation[ICD9: 427.31] Diagnosis: Encounter for monitoring digoxin therapy[ICD9: V58.83] Diagnosis: ESSENTIAL HYPERTENSION[SNOMED: 27695036] Karma Bahena MD [facility] CPT-4: 49492 05/15/2013 ([id number]) 69551 EST. PATIENT, LEVEL IV Diagnosis: ESSENTIAL HYPERTENSION[SNOMED: 97026085] Diagnosis: ATRIAL FIBRILLATION[ICD9: 427.31] Diagnosis: PALPITATIONS[ICD9: 785.1] Diagnosis: Dizziness and giddiness[ICD9: 780.4] PARVEEN Freitas MD CPT- 4: 90664 04/23/2013 ([id number]) 96349 EST. PATIENT, LEVEL III Diagnosis: OTHER CONSTIPATION[ICD9: 564.09] Diagnosis: ABDOM PAIN NOS SITE[ICD9: 789.00] Laura Bahena MD [facility] CPT- 4: 34686 03/21/2013 ([id number]) 62017 EST. PATIENT, LEVEL IV Diagnosis: ESSENTIAL HYPERTENSION[SNOMED: 95751936] Diagnosis: Atrial fibrillation[ICD9: 427.31] PARVEEN Freitas MD CPT- 4: 18518 01/16/2013 ([id number]) Miscellaneous no charge Diagnosis: CELLULITIS OF HAND[ICD9: 682.4] [facility] CPT-4: 27873 12/19/2012 ([id number]) Miscellaneous no charge Diagnosis: ENCOUNTER FOR THERAPEUTIC DRUG MONITORING[ICD9: V58.83] Diagnosis: CELLULITIS OF HAND[ICD9: 682.4] [facility] CPT-4: 47876 12/14/2012 Miscellaneous no charge Diagnosis: CELLULITIS OF HAND[ICD9: 682.4] [facility] CPT-4: 01440 12/12/2012 44556 EST. PATIENT, LEVEL II Diagnosis: CELLULITIS OF HAND[ICD9: 682.4] Diagnosis: ENCNTR LONG-RX USE NEC[ICD9: V58.69] Diagnosis: LONG-TERM USE ANTICOAGUL[ICD9: V58.61] Karma Bahena MD [facility] CPT-4: 80521 12/11/2012 ([id number]) 06678 EST. PATIENT, LEVEL III Diagnosis: CELLULITIS OF HAND[ICD9: 682.4] Karma Bahena MD, [facility] CPT-4: 14793 12/10/2012 ([id number]) 08208 EST. PATIENT, LEVEL IV Diagnosis: Elevated digoxin level[ICD9: 796.0] Diagnosis: ATRIAL FIBRILLATION[ICD9: 427.31] Diagnosis: Inflammatory arthritis[ICD9: 714.9] Karma Bahena MD [facility] CPT- 4: 86421 10/30/2012 ([id number]) 37069 EST. PATIENT, LEVEL IV Diagnosis: Atrial fibrillation[ICD9: 427.31] Diagnosis: Anticoagulant long-term use[ICD9: V58.61] Diagnosis: ESSENTIAL HYPERTENSION[SNOMED: 89681946] Karma Bahena MD [facility] CPT-4: 93070 08/08/2012 ([id number]) 17788 EST. PATIENT, LEVEL IV Diagnosis: ABDOM PAIN NOS SITE[ICD9: 789.00] Diagnosis: Constipation - functional[ICD9: 564.09] Diagnosis: EDEMA[ICD9: 782.3] Diagnosis: ATRIAL FIBRILLATION[ICD9: 427.31] Karma Bahena MD, [facility] CPT- 4: 52557 07/11/2012 ([id number]) 05073 EST. PATIENT, LEVEL III Diagnosis: Cystocele[ICD9: 618.01] Diagnosis: Rectocele[ICD9: 618.04] Karma Bahena MD, [facility] CPT-4: 47777 05/08/2012 ([id number]) 97720 EST. 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 PATIENT, LEVEL IV Diagnosis: ATRIAL FIBRILLATION[ICD9: 427.31] Diagnosis: URGE INCONTINENCE[ICD9: 788.31] Diagnosis: MALAISE AND FATIGUE[ICD9: 780.79] Diagnosis: Dyspnea[ICD9: 786.09] Karma Bahena MD [facility] CPT-4: 39792 02/20/2012 36049 EST. PATIENT, LEVEL IV Diagnosis: Hematuria[ICD9: 599.70] Diagnosis: Vaginal yeast infection[ICD9: 112.1] Diagnosis: ATRIAL FIBRILLATION[ICD9: 427.31] Laura Bahena MD, [facility] CPT- 4: 15430 02/13/2012 ([id number]) 94678 EST. PATIENT, LEVEL IV Diagnosis: Atrial fibrillation[ICD9: 427.31] Diagnosis: Anticoagulation goal of INR 2 to 3[ICD9: V58.83] Diagnosis: Urinary incontinence, urge[ICD9: 788.31] Diagnosis: ESSENTIAL HYPERTENSION[SNOMED: 66678331] Karma Bahena MD [facility] CPT-4: 98136 02/01/2012 ([id number]) 38573 EST. PATIENT, LEVEL IV Diagnosis: Atrial fibrillation[ICD9: 427.31] Diagnosis: Anticoagulant long-term use[ICD9: V58.61] Diagnosis: ESSENTIAL HYPERTENSION[SNOMED: 89532868] Karma Bahena MD, [facility] CPT-4: 63002 2012 99833 EST. PATIENT, LEVEL IV Diagnosis: UTI[ICD9: 599.0] Diagnosis: ESSENTIAL HYPERTENSION[SNOMED: 37386147] Diagnosis: MALAISE AND FATIGUE[ICD9: 780.79] Diagnosis: Esophageal reflux[ICD9: 530.81] Karma Bahena MD, [facility] CPT-4: 56184 12/01/2011 ([id number]) 36546 EST. PATIENT, LEVEL IV Diagnosis: UTI (urinary tract infection)[ICD9: 599.0] Diagnosis: ESSENTIAL HYPERTENSION[SNOMED: 23906098] Diagnosis: URGE INCONTINENCE[ICD9: 788.31] Karma Bahena MD, [facility] CPT-4: 49395 11/23/2011 ([id number]) 94950 EST. PATIENT, LEVEL IV Diagnosis: ESSENTIAL HYPERTENSION[SNOMED: 53843142] Diagnosis: IMPACTED CERUMEN[ICD9: 380.4] Diagnosis: MALAISE AND FATIGUE[ICD9: 780.79] Diagnosis: EDEMA[ICD9: 782.3] Karma Bahena MD, [facility] CPT-4: 11920 10/03/2011 [id number] EST. PATIENT, LEVEL IV Diagnosis: ESSENTIAL HYPERTENSION[SNOMED: 47011044] Diagnosis: Generalized osteoarthritis[ICD9: 715.09] Diagnosis: OSTEOPOROSIS[ICD9: 733.00] Karma Bahena MD, [facility] CPT-4: 76710 08/08/2011 10018 EST. PATIENT, LEVEL IV Diagnosis: Muscle cramp[ICD9: 729.82] Diagnosis: Torticollis[ICD9: 723.5] Diagnosis: Rash[ICD9: 782.1] Karma Bahena MD, [facility] CPT-4: 34745 05/09/2011 [id number] EST. PATIENT, LEVEL IV Diagnosis: Leg cramps, sleep related[ICD9: 327.52] Diagnosis: Underweight[ICD9: 783.22] Karma Bahena MD, [facility] CPT-4: 72556 03/29/2011 [id number] EST. PATIENT, LEVEL IV Diagnosis: UTI[ICD9: 599.0] Diagnosis: Urge incontinence[ICD9: 788.31] Diagnosis: Loss of weight[ICD9: 783.21] Diagnosis: Palpitations[ICD9: 785.1] Diagnosis: Peripheral neuropathy, idiopathic[ICD9: 356.9] Karma Bahena MD, [facility] CPT-4: 55901 03/15/2011 Plan of Care Planned Activity Notes Codes Status Date Patient Education: Patient Medication Summary Completed 06/08/2018 [...] improving. 06/04/2018 Appointment: Karma Bahena WPtel: [phone] [facility] [facility] (15 min) Moderate 06/04/2018 Patient Education: Patient Medication Summary Completed 06/04/2018 Appointment: Karma Bahena WPtel: [phone] [facility] (15 min) Moderate 03/14/2018 Visit [...] q 3 months or q 6 m [facility] based on previous levels of control. 01/31/2018 Appointment: Kath[phone] [facility] - Annual Wellness Visit 01/31/2018 [...] allergy spray. 12/14/2017 Appointment: Karma Bahena WPtel: [address] [place], [place] [address] (15 min) Moderate 12/14/2017 Patient Education: Patient [...] allergy spray. 12/07/2017 Appointment: Katharine Dai WPtel: [address] [place] [address] (15 min) Moderate 12/07/2017 Patient Education: Patient [...] q 3 months or q 6 m [facility] based on previous levels of control. 11/14/2017 Appointment: Karma Bahena WPtel: [address] [place] [address] (15 min) Moderate 11/14/2017 Patient Education: Patient [...] shot today. 03/27/2017 Appointment: Karma Bahena WPtel: [facility] [place] (15 min) Moderate 03/27/2017 Patient [...] care surrogate. 01/23/2017 Appointment: Katharine Dai WPtel: [facility] [place] [facility] - Annual Wellness Visit 01/23/2017 [...] becoming uncontrolled. 01/19/2017 Appointment: Karma Bahena WPtel: [facility] [place] (15 min) Moderate 01/19/2017 Patient Education: Patient Medication Summary Completed 01/19/2017 Care Plan: Referral Order SNOMED-CT : [id number] Pending 01/19/2017 Appointment: Karma Bahena WPtel: [facility] [place] (15 min) Moderate 01/04/2017 Appointment: Karma Bahena WPtel: [address] [place] [address] (15 min) Moderate 12/28/2016 Visit Plan: L[facility]-ceptr-gtk zpack-call if symptoms do not resolve or if any worse. Patient verbalized understanding of plan. 11/29/2016 Appointment: Laura Colin WPtel: [facility] [phone] (15 min) Moderate 11/29/2016 Patient Education: [...] patient's pharmacy. 11/23/2016 Appointment: Katharine Dai WPtel: [address] [place], [place] [phone] (15 min) Moderate 11/23/2016 Patient Education: Patient Medication Summary Completed 11/23/2016 Visit Plan: Pharyngitis-Discussed natural and expected course of this diagnosis and need to alert me if symptoms do not follow expected course, or if any worse. Recommended salt water gargles as needed for pain. Ty lenol/motrin as needed for fever/discomfort. 11/21/2016 Appointment: Laura Colin WPtel: [facility] [place] [phone] (15 min) Moderate 11/21/2016 Patient Education: [...] monitor symptoms. 11/08/2016 Appointment: Karma Bahena WPtel: [phone] [facility] (10 min) Simple 11/08/2016 Patient Education: [...] etc. 11/02/2016 Appointment: Karma Bahena WPtel: [phone] [facility] [place] (15 min) Moderate 11/02/2016 Appointment: Nurse Visit 11/02/2016 Patient Education: Patient Medication Summary Completed 11/02/2016 Appointment: Nurse Visit 10/31/2016 Visit Plan: Laceration-right forearm- Pt was instructed to keep the wound clean, cleanse with sterile saline, use bactroban ointment, call if redness, pustular drainage, or any other acute concerns. Follow up Monday for dressing changes. 10/27/2016 Appointment: Laura Colin [facility]Ptel[facility]5 [phone] [place] (30 min) Complex 10/27/2016 Patient Education: [...] in symptoms. 08/31/2016 Appointment: Karma Bahena WPtel: [facility] [place] [place] (15 min) Moderate 08/31/2016 Patient [...] your swelling. 07/27/2016 Appointment: Karma Bahena WPtel: [facility] [place] (15 min) Moderate 07/27/2016 Patient [...] of lasix 06/23/2016 Appointment: Karma Bahena WPtel: [facility] [place] [place] (15 min) Moderate 06/23/2016 Patient Education: Patient Medication Summary Completed 06/23/2016 Patient Education: Hypertension Completed 06/23/2016 Visit Plan: Edema - with Dyspnea - RX for laxis and compression socks - pt to call if not improving. 06/09/2016 Appointment: Karma Bahena WPtel: [address] [place], [place] [phone] (15 min) Moderate 06/09/2016 Patient Education: Patient Medication Summary Completed 06/09/2016 Visit Plan: Abdominal pain and rectal itching - recommended pt to use betamethasone on vaginal/rectal region, monitor symptoms call if not improving. 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 : 20323-9 Pending 05/20/2016 Visit Plan: Abdominal distension - use simethicone four times daily - after meals - if it does not help - in the next two weeks - call the office and we will do a ct scan of the abdomen and pelvis 05/17/2016 Appointment: Karma Bahena WPtel: [facility] [place] [place] (15 min) Moderate 05/17/2016 Patient [...] steroid ointment 03/24/2016 Appointment: Karma Bahena WPtel: [facility] [place] (30 min) Complex 03/24/2016 Patient Education: Patient [...] spray. 12/21/2015 Appointment: Laura Colin WPtel: [address]66[facility] (30 min) Complex 12/21/2015 Patient [...] uncontrolled. 11/03/2015 Appointment: Karma Bahena WPtel: [phone] [facility] (15 min) Moderate 11/03/2015 Patient [...] had left kidney and ureter removed in [place]-doing well 09/01/2015 Appointment: (30 min) Complex 09/01/2015 Patient Education: Patient Medication Summary Completed 09/01/2015 Patient Education: Hypertension Completed 09/01/2015 Appointment: Karma Bahena WPtel: [address] [place] [address] (15 min) Moderate 07/13/2015 Visit Plan: Hematuria/Urethritis [...] 05/13/2015 Care Plan: Referral Order SNOMED-CT : [id number] Ordered 05/08/2015 Visit Plan: Atrial Fibrillation - [...] Dr. Collins. 05/07/2015 Appointment: Karma Bahena WPtel: [facility] [place] [place] (15 min) Moderate 05/07/2015 Patient Education: [...] becoming uncontrolled. 10/30/2014 Appointment: Karma Bahena WPtel: [address] [place] [address] Follow up 10/30/2014 Patient Education: Patient Medication Summary Completed 10/30/2014 Appointment: Karma Bahena WPtel: [address] [place] [address] Follow up 07/22/2014 Visit Plan: Atrial Fibrillation [...] in hospital. 07/11/2014 Appointment: Karma Bahena WPtel: [address] [place], [place] [phone] Sick 07/11/2014 Patient Education: Patient Medication Summary Completed 07/11/2014 Appointment: Karma Bahena WPtel: [address] [place], [place] [address] Follow up 07/07/2014 Visit Plan: Urinary incontinence and recurrent UTI's - doctor will refer to Dr. Joel Collins - for nonsurgical intervention for potential electrical stimulation/training of pelvic floor muscles - for strengthening - can start on the treatment when you get back from [place] - will also ask him about doing a cystoscopy to look into bladder to see if there is any bladder irritation. keep using the Premarin - use about 25Cent size of cream onto finger to apply to urethra and do this three times weekly. 05/20/2014 Appointment: Karma Bahena WPtel: [phone] [facility] Follow up 05/20/2014 Patient Education: Patient Medication Summary Completed 05/20/2014 Appointment: Karma Bahena WPtel: [phone] [facility] Lab Draw 05/14/2014 Patient Education: Patient [...] uncontrolled. Incontinence - recommended vesicare. 04/29/2014 Appointment: JosefKarma helton WPtel: [phone] [facility] Follow up 04/29/2014 Patient Education: Patient [...] spray. 03/20/2014 Appointment: Karma Bahena WPtel: [phone] [facility] [facility] 03/20/2014 Patient Education: Patient Medication Summary Completed [...] becoming uncontrolled. 03/05/2014 Appointment: Karma Bahena WPtel: [address] [place] [address] Follow up 03/05/2014 Patient Education: Patient Medication [...] with report. 01/29/2014 Appointment: Karma Bahena WPtel: [facility] [place] [place] [facility] Follow up 01/29/2014 Patient Education: Patient [...] exposure,and dyspnea on exertion - will ask [facility] do an overnight oxygen study on [place] as she has cardiac history, weight loss, and nocturnal hypoxemia may be a part of her weight loss and fatigue. 12/25/2013 Appointment: Karma Bahena WPtel: [phone] [facility] Follow up 12/25/2013 Patient Education: Patient [...] daily. 11/27/2013 Appointment: Karma Bahena WPtel: 101 [facility] Follow up 11/27/2013 Patient Education: Patient [...] Osteoarthritis - send pt to [facility] physical therapy [facility] osteoarhtritis program for strengthening and pain reduction. Hypertension - well controlled - continue with current medications, continue with no added salt diet. Pt has been encouraged to exercise daily. The pt has been advised to call the office if there are any acute concerns about change in blood pressure readings at home. 09/12/2013 Appointment: Karma Bahena WPtel: [phone] [facility] Follow up 09/12/2013 Patient Education: Patient Medication Summary Completed 09/12/2013 Patient Education: Hypertension Completed 09/12/2013 Appointment: Karma Bahena WPtel: 101 [facility] Follow up 08/21/2013 Visit Plan: Hypertension - [...] PT/INR 08/15/2013 Appointment: Karma Bahena WPtel: [phone] [facility] Follow up 08/15/2013 Patient Education: [...] of urethra. 08/01/2013 Appointment: Karma Bahena WPtel: [facility] [place] [place] [place] Follow up 08/01/2013 Patient Education: Patient Medication Summary Completed 08/01/2013 Patient Education: Hypertension Completed 08/01/2013 Appointment: Laura Colin WPtel: [facility] [phone] [place] Lab Draw 07/29/2013 Patient Education: Patient Medication Summary Completed 07/29/2013 Visit Plan: Osteoporosis-prolia on june 25-patient to let Dr Hansen know 07/01/2013 Appointment: Laura Colin WPtel: [facility] [place] [place] [place] Follow up 07/01/2013 Appointment: Karma Bahena WPtel: [facility] [place] [place] [place] Follow up 07/01/2013 Patient Education: Patient Medication Summary Completed 07/01/2013 Appointment: Karma Bahena WPtel: [facility] [place] [place] [place] Follow up 06/25/2013 Appointment: Karma Bahena WPtel: [facility] [place] [place] [place] Lab Draw 06/20/2013 Patient Education: Patient Medication Summary Completed 06/20/2013 Appointment: Karma Bahena WPtel: [phone] [facility] Lab Draw 06/19/2013 Visit Plan: Atrial [...] home. 05/29/2013 Appointment: Karma Bahena WPtel: [phone] [facility] Follow up 05/29/2013 Patient Education: Patient [...] home. 05/15/2013 Appointment: Karma Bahena WPtel: [phone] [facility] Other 05/15/2013 Patient Education: Patient Medication [...] shot today. 04/23/2013 Appointment: Karma Bahena WPtel: [facility] [place] [place] Other 04/23/2013 Patient Education: Patient [...] this regimen. 03/21/2013 Appointment: Laura Colin WPtel: [facility] [place] [phone] Follow up 03/21/2013 Patient Education: Patient [...] becoming uncontrolled. 01/16/2013 Appointment: Karma Bahena WPtel: [address] [place], [place] [phone] Follow up 01/16/2013 Patient Education: Patient Medication Summary Completed 01/16/2013 Patient Education: Hypertension Completed 01/16/2013 Visit Plan: Wound Instructions - Pt was instruced to keep the wound clean, wash with antibacterial soap, use triple antibiotic ointment, call if redness, pustular drainage, or any other acute conerns. 12/19/2012 Appointment: Karma Bahena WPtel: [facility] [place] Other 12/19/2012 Patient Education: Patient Medication Summary Completed 12/19/2012 Patient Education: Patient Medication Summary Completed 12/17/2012 Visit Plan: Cellulitis - improved- monitor symptoms - need to check handon Monday morning. 12/14/2012 Appointment: Karma Bahena WPtel: [address] [place], [place] [phone] Follow up 12/14/2012 Patient Education: Patient Medication Summary Completed 12/14/2012 Visit Plan: Cellulitis - improved- monitor symptoms - need to check handon Monday morning. 12/12/2012 Appointment: Karma Bahena WPtel: [address] [place], [place] [phone] Work-in 12/12/2012 Patient Education: Patient Medication Summary [...] discharge. 12/10/2012 Appointment: Karma Bahena WPtel: [address] [place] [address] Other 12/10/2012 Patient Education: Patient Medication Summary [...] becoming uncontrolled. 10/30/2012 Appointment: Karma Bahena WPtel: [facility] [place] [place] [facility] Follow up 10/30/2012 Patient Education: Patient Medication Summary Completed 10/30/2012 Appointment: Laura Colin WPtel: [address] [place], [place] [phone] Lab Draw 09/13/2012 Patient Education: Patient Medication [...] and 3.5. 08/08/2012 Appointment: Karma Bahena WPtel: [facility] [place] [place]66[facility] Other 08/08/2012 Patient Education: Patient Medication Summary [...] this regimen. 07/11/2012 Appointment: Karma Bahena WPtel: [facility] [place] [place] swelling, leg edema Other 07/11/2012 Patient Education: [...] vaginally. 05/08/2012 Appointment: Karma Bahena WPtel: [phone] [facility] [place] Follow up 05/08/2012 Patient Education: [...] during hospitalization. 04/18/2012 Appointment: Karma Bahena WPtel: [facility] [place] [facility] [place] [place] Follow up 04/18/2012 Patient Education: Patient Medication Summary Completed 04/18/2012 Patient Education: High Blood Pressure: Essential Hypertension Completed 04/18/2012 Appointment: Karma Bahena WPtel: [phone] [facility] [place] Follow up 04/09/2012 Appointment: Karma Bahena WPtel: [facility] [place] [place] [place] Lab Draw 04/04/2012 Appointment: Laura Colin WPtel: [facility] [place] [facility] [place] [facility] [place] Lab Draw 03/19/2012 Visit Plan: [...] Hypertension Completed 03/13/2012 Appointment: Karma Bahena WPtel: [facility] [place] [facility] [place] Lab Draw 03/08/2012 Patient Education: Patient [...] cardiac rehab. 02/20/2012 Appointment: Karma Bahena WPtel: [phone] [facility] Other 02/20/2012 Patient Education: Patient Medication [...] uncontrolled. 02/13/2012 Appointment: Laura Colin WPtel: [phone] [phone] Other 02/13/2012 Patient Education: Patient Medication Summary Completed 02/13/2012 Appointment: Karma Bahena WPtel: [phone] [facility] Lab Draw 02/07/2012 Visit Plan: Atrial Fibrillation [...] the medication. 02/01/2012 Appointment: Karma Bahena WPtel: [phone] [facility] Other 02/01/2012 Patient Education: Patient Medication Summary Completed 02/01/2012 Patient Education: High Blood Pressure: Essential Hypertension Completed 02/01/2012 Appointment: Karma Bahena WPtel: [facility] [place] [place] Lab Draw 01/17/2012 Visit Plan: [...] at home. 2012 Appointment: Karma Bahena WPtel: [facility] [place] [facility] [place]6[address] Other 2012 Patient Education: Patient Medication Summary Completed 2012 Patient Education: High Blood Pressure: Essential Hypertension Completed 2012 Appointment: Karma Bahena WPtel: [facility] [place] [place] Follow up 12/20/2011 Visit Plan: [...] emergency room. 12/01/2011 Appointment: Karma Bahena WPtel: [facility] [place] [facility] [place] [place] Other 12/01/2011 Patient Education: Patient Medication [...] infection resolves. 11/23/2011 Appointment: Laura Colin WPtel: [facility] [place] [facility] [place] [address] Other 11/23/2011 Patient Education: Patient Medication [...] hearing 10/17/2011 Appointment: Laura Colin WPtel: [phone] [phone] Other 10/17/2011 Patient Education: Patient Medication Summary [...] by irrigation. 10/03/2011 Appointment: Karma Bahena WPtel: [facility] [place] [address] Other 10/03/2011 Patient Education: Patient Medication [...] evidence. 08/08/2011 Appointment: Karma Bahena WPtel: [address] [place] [address] Other 08/08/2011 Patient Education: Patient Medication Summary Completed 08/08/2011 Patient Education: High Blood Pressure: Essential Hypertension Completed 08/08/2011 Visit Plan: Muscle cramps - the cramps are a little better, continue with the Diltiazem and it is okay to use the over the counter supplement with quinine - but use it sparingly. For the rash, use the prescripti on the traffic counter prescribed for the itching , call if the rash is not improved. Torticollis - continue with physical therapy, call if the neck muscles do not continue to show improvement. 05/09/2011 Appointment: Karma Bahena WPtel: [facility] [place] [address] Other 05/09/2011 Patient Education: Patient Medication [...] water aerobics. 03/29/2011 Appointment: Karma Bahena WPtel: [address] [place] [address] Other 03/29/2011 Patient Education: Patient Medication Summary Completed 03/29/2011 Appointment: Karma Bahena WPtel: [address] [place] [address] Other 03/17/2011 Visit Plan: UTI - UA negative. Urge incontinence- restart on the vesicare- at 5 mg. Continue to avoid caffinated foods/fluids. Peripheral Neuropathy - per ramp and cargo supervisor report - Continue with the metanex. Loss of weight - WEIGHT CHECK IN 2 WKS. Palpitations- likely stress induced. If the symptoms worsen, call the office. 03/15/2011 Appointment: Karma Bahena WPtel: [address] [place] [address] Follow up 03/15/2011 Patient Education: Patient Medication [...] avoid caffinated foods/fluids. Peripheral Neuropathy - per ramp and cargo supervisor report - Continue with the metanex. [...] therefore, would not change the medication. . [id number] zpack-call if symptoms do not resolve or [...] For the rash, use the prescription the traffic counter prescribed for the itching , call if [...] Osteoarthritis - send pt to [facility] physical therapy for gereral osteoarhtritis program for [...] had left kidney and ureter removed in [place]- doing well . Hematuria - check UA. [...] the treatment when you get back from [place] - will also ask him about doing [...] the treatment when you get back from [place] - will also ask him about doing [...] exposure,and dyspnea on exertion - will ask [facility] do an overnight oxygen study [...]
--- NOTE | 2018-12-10 20:52 | History & Physicial ---
History of Present Illness History of Present Illness Reason for visit/HPI PT IS AN 83 Y/O FEMALE WHO IS WELL KNOWN TO ME FROM CLINIC. SHE PRESENTED TO THE OFFICE WITH COMPLAINT OF PERSISTENTLY FEELING POORLY OVER THE WEEKEND. SHE REPORTS SEVERE FATIGUE AND SLEEPING FOR OVER 20 HOURS A DAY FOR THE PAST FEW DAYS. SHE REPORTS THAT SHE DOES FEEL HER HEART PALPITATING. Date of Admission Dec 10, 2018 at 12:35 Date Seen by a Provider: Dec 10, 2018 Time Seen by a Provider: 12:00 I consulted on this patient on 12/10/18 20:46 Attending Physician Junior Bahena MD Admitting Physician Junior Bahena MD Consult DR. HALL - INVENTORY CONTROL SUPERVISOR Allergies and Home Medications Allergies Coded Allergies: Bacitracin Zinc (Verified Allergy, Unknown, 10/06/15) bacitracin (Verified Allergy, Unknown, 10/06/15) benzalkonium chloride (Verified Allergy, Unknown, 10/06/15) gramicidin D (Verified Allergy, Unknown, 10/06/15) hydrocortisone (Verified Allergy, Unknown, 10/06/15) lidocaine (Verified Allergy, Unknown, 10/06/15) meclizine (Verified Allergy, Unknown, 10/06/15) neomycin (Verified Allergy, Unknown, 10/06/15) neomycin sulfate (Verified Allergy, Unknown, 10/06/15) polymyxin B (Verified Allergy, Unknown, 10/06/15) polymyxin B sulfate (Verified Allergy, Unknown, 10/06/15) Home Medications Acetaminophen 325 Mg Tablet, 325-650 MG PO Q6H PRN for PAIN-MILD, (Reported) Albuterol Sulfate 90 Mcg Aer.pow.ba, 1-2 PUFF INH QID PRN for SHORTNESS OF BREATH, (Reported) Rftgu-T-Zsdvqpqhbncbj 150 Unit Tablet, 2 TAB PO AC, (Reported) Alprazolam 0.25 Mg Tablet, 0.5-1 TAB PO DAILY PRN for ANXIETY, (Reported) Amlodipine Besylate 5 Mg Tablet, 5 MG PO DAILY, (Reported) Apixaban 2.5 Mg Tablet, 2.5 MG PO BID, (Reported) Atorvastatin Calcium 10 Mg Tablet, 10 MG PO HS, (Reported) Brinzolamide/Brimonidine Tart 8 Ml Drops.susp, 1 DROP OS BID, (Reported) Budesonide/Formoterol Fumarate 10.2 Gm Hfa.aer.ad, 2 PUFF IH BID PRN for SHORTNESS OF BREATH, (Reported) Carboxymethyl/Glycerin/Poly80 10 Ml Drops, 2 DROP OU QID, (Reported) Cephalexin 500 Mg Capsule, 500 MG PO TID, (Reported) 7 DAY SUPPLY FILLED 12-07-18 Cetirizine HCl 10 Mg Tablet, 10 MG PO HS, (Reported) Cholecalciferol (Vitamin D3) 1,000 Unit Capsule, 1,000 UNIT PO 1200, (Reported) Cyclobenzaprine HCl 5 Mg Tablet, 2.5 MG PO Q8H, (Reported) TAKES 1/2 (5MG) TABLET Dextromethorphan HBr/Chlor-Mal 1 Each Tablet, 1 TAB PO TID, (Reported) Diclofenac Sodium 100 Gm Gel..gram., 2 GM TOP QID PRN for PAIN, (Reported) APPLY TO SHOULDER AND HANDS Digoxin 125 Mcg Tablet, 125 MCG PO Q48H@0300, (Reported) IF HR UNDER 60 TWO OR MORE TIMES DURING THE DAY REDUCE TO 1/2 TABLET Docusate Sodium 100 Mg Capsule, 100 MG PO HS, (Reported) Guaifenesin 1,200 Mg Tab.er.12h, 1,200 MG PO BID PRN for CONGESTION, (Reported) L.acidoph & Paracasei,B.lactis 1 Each Capsule, 1 CAP PO DAILY, (Reported) Levothyroxine Sodium 75 Mcg Tablet, 75 MCG PO 0300, (Reported) Loperamide HCl 2 Mg Tablet, 2 MG PO UD PRN for DIARRHEA, (Reported) Loteprednol Etabonate 5 Gm Drops.gel, 1 DROP OD BID, (Reported) Metoprolol Succinate 50 Mg Tab.er.24h, 75 MG PO DAILY, (Reported) TAKES 1 & 1/2 (50MG) TABLET Multivitamin 1 Each Tablet, 1 TAB PO 1200, (Reported) [place] 3 Polyunsat Fatty Acids 1,000 Mg Cap, 1,000 MG PO BID, (Reported) Pantoprazole Sodium 40 Mg Tablet.dr, 40 MG PO HS, (Reported) Polyethylene Glycol 3350 17 Gm Powd.pack, 8.5 GM PO HS, (Reported) Simethicone 125 Mg Capsule, 125 MG PO TIDPC PRN for GAS, (Reported) Solifenacin Succinate 10 Mg Tablet, 10 MG PO Q48H, (Reported) Spironolactone 25 Mg Tablet, 25 MG PO BID, (Reported) Sucralfate 1 Gm/10 Ml Oral.susp, 10 ML PO TID PRN for REFLUX, (Reported) Patient Home Medication List Home Medication List Reviewed: Yes Past [place]-Qdamzx-Gkswve Hx Patient Social History Marrital Status: Living Status: LIVES IN [place] IN HER OWN HOME Alcohol Use: Denies Use Recreational Drug Use: No Smoking Status: Never a Smoker 2nd Hand Smoke Exposure: No Physical Abuse Screen: No Sexual Abuse: No Recent Foreign Travel: No Contact w/other who traveled: No Recent Hopitalizations: No (rotator cuff surgey, 2004, 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) Recent Infectious Disease Expo: No Immunizations Up To Date Date of Pneumonia Vaccine: Jul 11, 2014 Date of Influenza Vaccine: Apr 09, 2015 Surgeries Yes Eye Surgery, Hysterectomy, Orthopedic Respiratory No Currently Using CPAP: No Currently Using BIPAP: No Cardiovascular Yes Atrial Fibrillation, High Cholesterol, Hypertension Neurological Yes Neuropathy Reproductive System Hx Reproductive Disorders: No Sexually Transmitted Disease: No Genitourinary Yes (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) Gastrointestinal Yes (35" OF COLON REMOVED) Musculoskeletal Yes Osteoporosis Endocrine History of Endocrine Disorders: Yes Endocrine Disorders: Hypothyroidsim Cancer Yes Kidney Psychosocial History of Psychiatric Problem: No Integumentary History of Skin or Integumenta: No Reviewed Nursing Assessment Reviewed/Agree w Nursing PMH: Yes Family Medical History Significant Family History: Heart Disease Review of Systems Constitutional: No chills, No fever; malaise, weakness EENTM: No hearing loss, No hoarseness, No throat pain Respiratory: No cough, No dyspnea on exertion; short of breath; No wheezing Cardiovascular: No chest pain, No edema; palpitations Gastrointestinal: No abdominal pain; loss of appetite, other (GAS/BLOATING - CHRONIC) Genitourinary: no symptoms reported Musculoskeletal: No back pain; muscle weakness Skin: no symptoms reported Psychiatric/Neurological: Denies Anxiety, Denies Depressed All Other Systems Reviewed Negative Unless Noted: Yes Physical Exam Vital Signs Vital Signs - First Documented 12/10/18 12/10/18 14:05 15:26 Temp 98.5 Pulse 80 Resp 16 B/P (MAP) 117/70 Pulse Ox 98 O2 Delivery Room Air Capillary Refill : Height, Weight, BMI Height: 5'1.00" Weight: 105lbs. 9.6oz. [id number]; 20.0 BMI Method:Stated General Appearance: Mild Distress, Thin Eyes: Right Eye Other (CLOUDY EYE) HEENT: Pharynx Normal Neck: Full Range of Motion, Normal Inspection, Non Tender, Supple Respiratory: Chest Non Tender, Lungs Clear, Normal Breath Sounds, No Accessory Muscle Use, No Respiratory Distress Cardiovascular: Irregularly Irregular, Tachycardia Gastrointestinal: Normal Bowel Sounds, No Organomegaly, No Pulsatile Mass, Non Tender, Soft Rectal: Deferred Extremity: Normal Capillary Refill, Pedal Edema (TRACE) Neurologic/Psychiatric: Alert, Oriented x3, No Motor/Sensory Deficits, Normal Mood/Affect Skin: Warm/Dry Lymphatic: No Adenopathy Assessment/Plan Assessment and Plan HYPONATREMIA ATRIAL FIBRILLATION HYPERTENSION HYPOTHYROIDISM CHRONIC ANXIETY HYPERLIPIDEMIA ESOPHAGEAL REFLUX HYPONATREMIA - REPLACE WITH IV FLUIDS - MONITOR SYMPTOMS - CHECK LABS. ATRIAL FIBRILLATION - RESUME HOME REGIMEN - DEFER TO DR. HALL HYPERTENSION - RESUME HOME REGIMEN HYPOTHYROIDISM - CHECK THYROID LABS CHRONIC ANXIETY - SUPPORTIVE CARE HYPERLIPIDEMIA - HOLD STATIN AT THIS TIME ESOPHAGEAL REFLUX - HOLD PPI THERAPY FOR NOW Admission Diagnosis HYPONATREMIA ATRIAL FIBRILLATION HYPERTENSION HYPOTHYROIDISM CHRONIC ANXIETY HYPERLIPIDEMIA ESOPHAGEAL REFLUX Admission Status: Inpatient Order (span 2 midnights) Reason for Inpatient Admission: PT IS EXPECTED TO BE HOSPITALIZED FOR AT LEAST 72 HOURS TO MANAGE HYPONATREMIA AND IMPROVE SYMPTOMS OF GENERALIZED WEAKNESS - MAY NEED TO CONSIDER INPATIENT REHAB Clinical Quality Measures DVT/VTE Risk/Contraindication: Risk Factor Score Per Nursin RFS Level Per Nursing on Admit: 2=Moderate JUNIOR BAHENA MD Dec 10, 2018 20:52
[2018-12-10] MEDS ORDERED: CHLOR MAL PO SCH (21:00)
[2018-12-10] MEDS ORDERED: NON-FORMULARY MEDICATION 1 EA EA (Loperamide HCl (Imodium A-D) 2 MG) PO PRN (21:00)
[2018-12-10] MEDS ORDERED: NON-FORMULARY MEDICATION 1 EA EA (Carboxymethyl/Glycerin/Poly80 (Refresh Optive Advanced D OU SCH (21:00)
[2018-12-10] MEDS ORDERED: ALPRAZolam 0.25 MG (XANAX) TAB PO PRN (21:00)
[2018-12-10] MEDS ORDERED: DEXTROMETHORPHAN HBR PO SCH (21:00)
[2018-12-10] MEDS ORDERED: NON-FORMULARY MEDICATION 1 EA EA (Brinzolamide/Brimonidine Tart (Simbrinza 1%-0.2% Eye Dro OS SCH (21:00)
[2018-12-10] MEDS ORDERED: [UNRECOGNIZED DRUG - OTHER] PO SCH (21:00)
[2018-12-10] MEDS ORDERED: NON-FORMULARY MEDICATION 1 EA EA (Loteprednol Etabonate (Lotemax) 1 DROP) OD SCH (21:00)
--- OUTSIDE RECORDS SUMMARY | 2018-12-10 21:02 | XMS REPORT | CCD ---
Author Author Laura Colin Organization Karma Bahena MD, [facility] Address [address] [place] [address] Phone Care Team Providers Care Production Miner Name Role Phone Karma Bahena PP Unavailable CCM Unavailable Summary Purpose Interface Exchange Insurance Providers Payer name Policy type / Coverage type Covered libertarian ID Effective Begin Date Effective End Date WPS Medicare Part B Medicare Part B [id number] 2018 Unknown AARP Medicare Part B [id number] 2018 Unknown Family history Sister Diagnosis Age [...] Unknown House 03/15/[address]: 100610311 Never smoker 03/15/2011 Has the patient ever used illegal drugs? Unknown Has never used illegal drugs 03/15/2011 Allergies, Adverse Reactions, Alerts Substance Reaction Codes Entered Date Inactivated Date Status BACTINE RxNorm: 043784 03/04/2011 No Inactive Date Active MICONAZOLE RxNorm: 6932 03/04/2011 No Inactive Date Active NEOSPORIN RxNorm: 271297 03/04/2011 No Inactive Date Active NEOMYCIN RxNorm: 7299 03/04/2011 No Inactive Date Active CORTISPORIN RxNorm: 48439 03/04/2011 No Inactive Date Active bactrim RxNorm: 682779 03/13/2012 No Inactive Date Active AUGMENTIN diarrhea RxNorm: 741439 2016 No Inactive Date Active METRONIDAZOLE Unknown [...] 401.9 ICD-10: I10 Active 12/25/2013 Unknown Other assisted (current) drug therapy ICD-9: V58.83 [...] 706.2 ICD-10: L72.0 Active 02/01/2016 Unknown Other assisted (current) drug therapy ICD-9: V58.69 [...] ICD-9: 401.9 ICD-10: I10 12/25/2013 Active Other salvage determiner (current) drug therapy ICD-9: V58.83 ICD-10: Z79.899 [...] Start Date Stop Date Status Fill Instructions metoprolol succinate ER 50 mg tablet,extended release 24 hr RxNorm: 496326 1.5 Tablet(s) daily 06/15/2018 03/11/2019 Active sucralfate 100 mg/mL oral suspension RxNorm: 602673 2 Teaspoon(s) PO TID as needed with reflux symptoms 06/04/2018 No Stop Date Active Vesicare 10 mg tablet RxNorm: 733960 1 TABLET(S) PO EVERY OTHER DAY 05/14/2018 01/08/2019 Active levothyroxine 50 mcg tablet RxNorm: 945656 1 TABLET(S) PO DAILY 04/30/2018 07/28/2018 Active Patient requests 90 days supply spironolactone 25 mg tablet RxNorm: 046402 1 Tablet(s) PO daily 03/14/2018 03/08/2019 Active levothyroxine 50 mcg tablet RxNorm: 055374 1 Tablet(s) PO daily 02/01/2018 04/29/2018 Inactive Eliquis 2.5 mg tablet RxNorm: 7038613 1 Tablet(s) PO BID 01/31/2018 02/20/2018 Inactive levothyroxine 50 mcg tablet RxNorm: 619559 1 Tablet(s) PO daily 01/31/2018 01/31/2018 Inactive Eliquis 2.5 mg tablet RxNorm: 8862887 TAKE 1 TABLET BY MOUTH TWICE DAILY 01/23/2018 07/21/2018 Active metoprolol succinate ER 50 mg tablet,extended release 24 hr RxNorm: 292917 1 TABLET(S) PO DAILY 01/23/2018 01/30/2018 Inactive metoprolol succinate ER 50 mg tablet,extended release 24 hr RxNorm: 198117 1.5 Tablet(s) daily 01/22/2018 06/14/2018 Inactive lisinopril 20 mg tablet RxNorm: 990095 1/2 Tablet(s) daily 01/19/2018 01/21/2018 Inactive Patient requests 90 days supply Singulair 10 mg tablet RxNorm: 436021 TAKE 1 TABLET BY MOUTH AT BEDTIME 01/18/2018 04/17/2018 Inactive Patient requests 90 days supply Singulair 10 mg tablet RxNorm: 229802 Tablet(s) PO 01/17/2018 01/17/2018 Inactive digoxin 125 mcg tablet RxNorm: 818571 1 TABLET(S) PO DAILY 01/03/2018 12/28/2018 Active Symbicort 160 mcg-4.5 mcg/actuation HFA aerosol inhaler RxNorm: 7433499 2 Puff(s) INH BID 12/14/2017 04/12/2018 Inactive please dispense an aerochamber for patient as well as her symbicort cyclobenzaprine 5 mg tablet RxNorm: 006553 Tablet(s) 1/2 TABLET(S) PO Q8 NEEDED MUSCLE SPASMS 12/14/2017 No Stop Date Active pantoprazole 40 mg tablet,delayed release RxNorm: 778510 1 Tablet(s) PO daily 12/14/2017 12/08/2018 Active ProAir RespiClick 90 mcg/actuation breath activated RxNorm: 8385197 1-2 INH QID as needed shortness of breath 12/14/2017 07/11/2018 Active cyclobenzaprine 5 mg tablet RxNorm: 313733 1/2 TABLET(S) PO Q8 NEEDED MUSCLE SPASMS 12/08/2017 12/13/2017 Inactive betamethasone dipropionate 0.05 % topical ointment RxNorm: 616572 1 Application TOP TID use topically on the rectal tissue three times daily x 1 week then as needed 11/13/2017 No Stop Date Active Premarin 0.625 mg/gram vaginal cream RxNorm: 176139 1/2 GRAM(S) VAG TIW 11/13/2017 12/12/2017 Inactive cyclobenzaprine 5 mg tablet RxNorm: 774046 1/2 TABLET(S) PO Q8 NEEDED MUSCLE SPASMS 10/17/2017 12/07/2017 Inactive Vesicare 10 mg tablet RxNorm: 586680 1 Tablet(s) PO every other day 10/17/2017 04/14/2018 Inactive lisinopril 20 mg tablet RxNorm: 321425 1 TABLET(S) PO DAILY 10/02/2017 01/18/2018 Inactive Patient requests 90 days supply levothyroxine 75 mcg tablet RxNorm: 827426 1 TABLET(S) PO DAILY 09/25/2017 01/30/2018 Inactive spironolactone 25 mg tablet RxNorm: 994963 1 TABLET(S) PO DAILY 08/16/2017 03/13/2018 Inactive cyclobenzaprine 5 mg tablet RxNorm: 157306 1/2 TABLET(S) PO Q8 NEEDED MUSCLE SPASMS 08/16/2017 10/16/2017 Inactive Eliquis 2.5 mg tablet RxNorm: 8040671 TAKE 1 TABLET BY MOUTH TWICE DAILY 07/26/2017 01/21/2018 Inactive cyclobenzaprine 5 mg tablet RxNorm: 120649 1/2 Tablet(s) PO Q8 as needed muscle spasms 06/19/2017 08/15/2017 Inactive lisinopril 20 mg tablet RxNorm: 547433 1 TABLET(S) PO DAILY 06/12/2017 10/01/2017 Inactive metoprolol succinate ER 50 mg tablet,extended release 24 hr RxNorm: 834383 1 TABLET(S) PO DAILY 04/07/2017 01/01/2018 Inactive spironolactone 25 mg tablet RxNorm: 814471 1 Tablet(s) PO daily 03/27/2017 03/13/2018 Inactive acyclovir 800 mg tablet RxNorm: 593466 1 Tablet(s) PO TID 03/21/2017 03/30/2017 Inactive acyclovir 800 mg tablet RxNorm: 448069 1 Tablet(s) PO TID 03/21/2017 03/20/2017 Inactive levothyroxine 75 mcg tablet RxNorm: 601347 1 Tablet(s) PO daily 03/16/2017 09/11/2017 Inactive spironolactone 25 mg tablet RxNorm: 448041 1 TABLET(S) PO DAILY 02/09/2017 03/26/2017 Inactive lisinopril 20 mg tablet RxNorm: 591923 1 TABLET(S) PO DAILY 01/02/2017 05/31/2017 Inactive Zithromax Z-Claudio 250 mg tablet RxNorm: 533381 1 Tablet(s) PO UD 11/29/2016 12/03/2016 Inactive ZPACK Keflex 500 mg capsule RxNorm: 732913 1 Capsule(s) PO TID 11/23/2016 12/02/2016 Inactive guaifenesin 400 mg tablet RxNorm: 822614 1 Tablet(s) PO Q6 as needed 11/23/2016 11/27/2016 Inactive omeprazole 40 mg capsule,delayed release RxNorm: 574356 1 Capsule(s) PO QPM 11/02/2016 12/13/2017 Inactive digoxin 125 mcg tablet RxNorm: 632191 1 TABLET(S) PO DAILY 10/27/2016 07/23/2017 Inactive cyclobenzaprine 5 mg tablet RxNorm: 858475 1/2 Tablet(s) PO Q8 PRN 10/25/2016 06/18/2017 Inactive prn muscle spasms Augmentin 500 mg-125 mg tablet RxNorm: 567782 1 Tablet(s) PO BID 10/24/2016 11/02/2016 Inactive Lasix 20 mg tablet RxNorm: 482028 Tablet(s) PRN one to two times a week if needed 07/27/2016 No Stop Date Active Patient requests 90 days supply spironolactone 25 mg tablet RxNorm: 107419 1 Tablet(s) PO daily 07/27/2016 02/08/2017 Inactive Diflucan 150 mg tablet RxNorm: 125755 1 Tablet(s) PO daily 07/27/2016 08/02/2016 Inactive lisinopril 20 mg tablet RxNorm: 913111 1 Tablet(s) PO daily 07/12/2016 01/01/2017 Inactive Lasix 20 mg tablet RxNorm: 956122 1 TABLET(S) PO EVERY OTHER DAY EVERY OTHER DAY 06/10/2016 07/26/2016 Inactive Patient requests 90 days supply potassium chloride ER 10 mEq capsule,extended release RxNorm: 293513 1 CAPSULE(S) PO EVERY OTHER DAY 06/10/2016 07/26/2016 Inactive Patient requests 90 days supply potassium chloride ER 10 mEq capsule,extended release RxNorm: 167865 1 Capsule(s) PO every other day 06/09/2016 06/09/2016 Inactive Lasix 20 mg tablet RxNorm: 231191 1 Tablet(s) PO every other day every other day 06/09/2016 06/09/2016 Inactive levothyroxine 88 mcg tablet RxNorm: 326822 1 Tablet(s) PO daily 05/11/2016 11/06/2016 Inactive Premarin 0.625 mg/gram vaginal cream RxNorm: 558110 1/2 Gram(s) VAG TIW 03/24/2016 03/18/2017 Inactive metoprolol succinate ER 50 mg tablet,extended release 24 hr RxNorm: 547921 1 Tablet(s) PO daily 03/24/2016 03/18/2017 Inactive pantoprazole 40 mg tablet,delayed release RxNorm: 477595 1 Tablet(s) PO daily 02/08/2016 11/01/2016 Inactive betamethasone dipropionate 0.05 % topical ointment RxNorm: 735827 1 Application TOP TID use topically on the rectal tissue three times daily x 1 week then as needed 02/02/2016 11/12/2017 Inactive pantoprazole 40 mg tablet,delayed release RxNorm: 728096 1 Tablet(s) PO daily 2016 02/07/2016 Inactive alprazolam 0.25 mg tablet RxNorm: 754451 1 Tablet(s) PO Q6 as needed 12/04/2015 No Stop Date Active Vesicare 10 mg tablet RxNorm: 198253 1 Tablet(s) PO every other day 11/03/2015 10/16/2017 Inactive alprazolam 0.25 mg tablet RxNorm: 066640 1 Tablet(s) PO Q6 as needed 11/03/2015 12/03/2015 Inactive Premarin 0.625 mg/gram vaginal cream RxNorm: 580764 1/2 Gram(s) VAG TIW 11/03/2015 03/23/2016 Inactive levothyroxine 88 mcg tablet RxNorm: 230150 1 Tablet(s) PO daily 11/03/2015 05/10/2016 Inactive Diflucan 150 mg tablet RxNorm: 995501 1 Tablet(s) PO daily 10/19/2015 10/25/2015 Inactive cetirizine 10 mg chewable tablet RxNorm: 4264367 1 Tablet(s) PO daily 10/13/2015 11/11/2015 Inactive cetirizine 10 mg capsule RxNorm: 5664259 1 Capsule(s) PO daily 10/13/2015 11/11/2015 Inactive Vesicare 10 mg tablet RxNorm: 488474 1/2 TABLET(S) PO BID 09/21/2015 11/02/2015 Inactive betamethasone dipropionate 0.05 % topical ointment RxNorm: 727209 1 Application TOP TID use topically on the rectal tissue three times daily x 1 week then as needed 09/15/2015 02/01/2016 Inactive lisinopril 20 mg tablet RxNorm: 341914 1 Tablet(s) PO daily 09/01/2015 07/11/2016 Inactive digoxin 125 mcg tablet RxNorm: 838383 1 Tablet(s) PO daily 09/01/2015 08/25/2016 Inactive Augmentin 500 mg-125 mg tablet RxNorm: 876750 1 Tablet(s) PO TID 05/26/2015 06/04/2015 Inactive Pyridium 200 mg tablet RxNorm: 4720362 1 Tablet(s) PO TID 05/26/2015 05/27/2015 Inactive levothyroxine 88 mcg tablet RxNorm: 057982 1 Tablet(s) PO daily except 1/2 pill on monday and 05/07/2015 11/02/2015 Inactive digoxin 125 mcg tablet RxNorm: 671648 1 Tablet(s) PO daily 05/07/2015 08/31/2015 Inactive lisinopril 20 mg tablet RxNorm: 422355 1 TABLET(S) PO BID 04/13/2015 09/01/2015 Inactive Coumadin 1 mg tablet RxNorm: 195016 1 TABLET(S) PO DAILY 03/31/2015 08/31/2015 Inactive Coumadin 2 mg tablet RxNorm: 085004 4MG IN AM AND 1MG AT NIGHT TABLET(S) PO DAILY DIRECTED. 03/31/2015 08/31/2015 Inactive levothyroxine 88 mcg tablet RxNorm: 095268 1 Tablet(s) PO daily 03/23/2015 05/06/2015 Inactive alprazolam 0.25 mg tablet RxNorm: 640011 Tablet(s) PO 03/23/2015 04/06/2015 Inactive levothyroxine 88 mcg tablet RxNorm: 443265 1 Tablet(s) PO daily 01/28/2015 03/22/2015 Inactive levothyroxine 88 mcg tablet RxNorm: 172742 1 Tablet(s) PO daily 01/28/2015 01/27/2015 Inactive diltiazem ER 120 mg capsule,extended release RxNorm: 545763 1 Capsule(s) PO BID patient would like 4 months at a time 01/06/2015 09/28/2015 Inactive digoxin 125 mcg tablet RxNorm: 189007 Tablet(s) 1 TABLET(S) PO DAILY 12/24/2014 12/23/2014 Inactive pt will be paying [employer] (On $4 list)Patient requests 90 days supply digoxin 125 mcg tablet RxNorm: 743146 Tablet(s) 1 TABLET(S) PO DAILY M W F Sat and 2 tabs on T TH 12/24/2014 05/06/2015 Inactive pt will be paying [employer]oma[employer] (On $4 list)Patient requests 90 days supply dicyclomine 20 mg tablet RxNorm: 039650 1 Tablet(s) PO daily 11/17/2014 08/31/2015 Inactive one ac dinner and up to tid prn levothyroxine 88 mcg tablet RxNorm: 329979 1 Tablet(s) PO daily 11/03/2014 01/27/2015 Inactive Premarin 0.625 mg/gram vaginal cream RxNorm: 181672 1 APPLICATION VAG 1 APPLICATOR PER VAGINA 3 TIMES PER WEEK 11/03/2014 07/30/2015 Inactive digoxin 125 mcg tablet RxNorm: 441865 1 TABLET(S) PO DAILY 09/29/2014 12/23/2014 Inactive pt will be paying [employer]oma[employer] (On $4 list)Patient requests 90 days supply digoxin 125 mcg tablet RxNorm: 806011 1 TABLET(S) PO DAILY 07/11/2014 04/06/2015 Inactive Vesicare 10 mg tablet RxNorm: 090864 1/2 Tablet(s) PO BID 05/20/2014 05/14/2015 Inactive Levaquin 500 mg tablet RxNorm: 143510 1 Tablet(s) PO daily 05/06/2014 05/08/2014 Inactive take probiotic BID while on ABT Levaquin 500 mg tablet RxNorm: 611509 1 Tablet(s) PO daily 05/02/2014 05/05/2014 Inactive take probiotic BID while on ABT diltiazem ER 120 mg capsule,extended release RxNorm: 779978 1 Capsule(s) PO BID patient would like 4 months at a time 04/29/2014 2015 Inactive Vesicare 10 mg tablet RxNorm: 946417 1/2 Tablet(s) PO BID 04/29/2014 05/19/2014 Inactive lisinopril 20 mg tablet RxNorm: 563542 1 Tablet(s) PO BID 03/20/2014 03/14/2015 Inactive diltiazem 90 mg tablet RxNorm: 770130 1/2 TABLET(S) PO QPM 03/04/2014 04/28/2014 Inactive also 180 q am diltiazem ER 120 mg capsule,extended release RxNorm: 118908 1 Capsule(s) PO daily patient would like 4 months at a time 01/29/2014 04/28/2014 Inactive Vesicare 10 mg tablet RxNorm: 147750 1 Tablet(s) PO QHS 01/14/2014 04/28/2014 Inactive Coumadin 2 mg tablet RxNorm: 165128 4mg in AM and 1mg at night Tablet(s) PO daily as directed. 12/25/2013 03/30/2015 Inactive Metanx 3 mg-35 mg-2 mg tablet RxNorm: 1 Tablet(s) PO daily 12/25/2013 11/02/2015 Inactive digoxin 125 mcg tablet RxNorm: 689644 1 Tablet(s) PO daily 12/25/2013 09/28/2014 Inactive pt will be paying [employer] (On $4 list) Coumadin 2 mg tablet RxNorm: 335205 7.5 wed 5mg other Tablet(s) PO as directed. 12/03/2013 12/24/2013 Inactive omeprazole 20 mg tablet,delayed release RxNorm: 516383 1 Tablet(s) PO BID 11/27/2013 04/28/2014 Inactive Coumadin 2 mg tablet RxNorm: 678327 5 mg daily Tablet(s) PO as directed. 11/26/2013 12/02/2013 Inactive 5 mg daily Xanax 0.25 mg tablet RxNorm: 470442 1 Tablet(s) PO Q6 PRN 11/11/2013 12/25/2013 Inactive alprazolam 0.25 mg tablet RxNorm: 349164 tablet oral 11/11/2013 03/22/2015 Inactive sucralfate 1 gram tablet RxNorm: 184675 1 Tablet(s) PO AC & HS 11/04/2013 11/03/2013 Inactive sucralfate 1 gram tablet RxNorm: 626059 1 Tablet(s) PO AC & HS 11/04/2013 01/02/2014 Inactive Synthroid 100 mcg tablet RxNorm: 341985 1 Tablet(s) PO daily 10/31/2013 10/25/2014 Inactive Synthroid 100 mcg tablet RxNorm: 799488 1 Tablet(s) PO daily 09/30/2013 10/29/2013 Inactive Vesicare 10 mg tablet RxNorm: 816978 1 Tablet(s) PO QHS 09/30/2013 01/13/2014 Inactive Lotemax 0.5 % eye ointment RxNorm: 4044261 ointment opht 09/06/2013 12/10/2013 Inactive levothyroxine 100 mcg tablet RxNorm: 894468 tablet oral 09/05/2013 11/02/2014 Inactive Synthroid 100 mcg tablet RxNorm: 996672 1 Tablet(s) PO daily 09/05/2013 09/29/2013 Inactive Prolia 60 mg/mL Sub-Q Syringe RxNorm: 771047 1 Milliliter(s) SQ 06/25/2013 11/02/2015 Inactive dicyclomine 20 mg tablet RxNorm: 377428 1 Tablet(s) PO daily 06/24/2013 06/18/2014 Inactive one ac dinner and up to tid prn omeprazole 20 mg tablet,delayed release RxNorm: 290159 1 Tablet(s) PO BID 06/24/2013 11/26/2013 Inactive Cipro 500 mg tablet RxNorm: 235516 1 Tablet(s) PO BID 06/20/2013 06/26/2013 Inactive diltiazem ER 120 mg capsule,extended release RxNorm: 058188 1 Capsule(s) PO daily patient would like 4 months at a time 06/03/2013 01/28/2014 Inactive Coumadin 2 mg tablet RxNorm: 575099 as directed Tablet(s) PO as directed. 05/29/2013 11/25/2013 Inactive 5 mg daily Synthroid 88 mcg tablet RxNorm: 144445 1 Tablet(s) PO daily 04/24/2013 04/23/2013 Inactive Synthroid 88 mcg tablet RxNorm: 674341 1 Tablet(s) PO daily 04/24/2013 07/28/2013 Inactive Premarin 0.625 mg/gram vaginal cream RxNorm: 052298 1 Application VAG 1 applicator per vagina 3 times per week 04/23/2013 04/17/2014 Inactive Influenza Virus Vaccine 0.5 mL RxNorm: IM 04/23/2013 04/23/2013 Inactive digoxin 125 mcg tablet RxNorm: 031428 1 Tablet(s) PO daily 02/20/2013 04/20/2013 Inactive pt will be paying [employer] (On $4 list) Digox 125 mcg tablet RxNorm: 1164281 tablet oral 02/13/2013 03/20/2014 Inactive digoxin 125 mcg tablet RxNorm: 739194 1 Tablet(s) PO daily 02/13/2013 02/19/2013 Inactive diltiazem 90 mg tablet RxNorm: 639628 1/2 Tablet(s) PO QPM 02/13/2013 02/07/2014 Inactive also 180 q am Levoxyl 75 mcg tablet RxNorm: 328483 1 Tablet(s) PO 01/16/2013 04/23/2013 Inactive Coumadin 2 mg tablet RxNorm: 565387 6mg daily except 3mg on wed and mon Tablet(s) PO 01/15/2013 05/28/2013 Inactive 5 mg daily Coumadin 2 mg tablet RxNorm: 056244 6mg daily Tablet(s) PO 12/21/2012 01/14/2013 Inactive 5 mg daily silver sulfadiazine 1 % Topical Cream RxNorm: 464647 TOP apply to affected area with each dressing change 12/19/2012 12/25/2013 Inactive cephalexin 500 mg tablet RxNorm: 211199 1 Tablet(s) PO TID 12/11/2012 12/17/2012 Inactive digoxin 125 mcg tablet RxNorm: 0753978 1 Tablet(s) PO daily 10/30/2012 02/12/2013 Inactive digoxin 125 mcg tablet RxNorm: 5275566 2 tab tue thurs one other days Tablet(s) PO daily 10/23/2012 10/29/2012 Inactive lisinopril 10 mg tablet RxNorm: 387537 1 Tablet(s) PO daily 10/17/2012 08/14/2013 Inactive Cipro 500 mg tablet RxNorm: 412915 1 Tablet(s) PO BID 09/13/2012 09/19/2012 Inactive Coumadin 1 mg tablet RxNorm: 750249 1 Tablet(s) PO daily 09/03/2012 09/02/2012 Inactive Coumadin 1 mg tablet RxNorm: 970159 1 Tablet(s) PO daily 09/03/2012 12/21/2012 Inactive Coumadin 2 mg tablet RxNorm: 445497 Tablet(s) PO 07/25/2012 12/20/2012 Inactive 5 mg daily digoxin 125 mcg tablet RxNorm: 6203565 1 Tablet(s) PO daily 06/28/2012 10/22/2012 Inactive Coumadin 2 mg tablet RxNorm: 432900 Tablet(s) PO 06/27/2012 07/24/2012 Inactive 5mg daily except 4mg on monday Coumadin 2 mg tablet RxNorm: 978416 Tablet(s) PO 06/19/2012 06/26/2012 Inactive 5mg tue wed thur sat sun4mg mon frid(has 2mg and 1 mg tab) digoxin 125 mcg tablet RxNorm: 7655772 1 Tablet(s) PO daily 05/29/2012 06/27/2012 Inactive Coumadin 2 mg tablet RxNorm: 401936 Tablet(s) PO 05/15/2012 06/18/2012 Inactive 5mg tue thur sat sun4mg mon frid(has 2mg and 1 mg tab) Coumadin 2 mg tablet RxNorm: 742651 Tablet(s) PO 04/25/2012 05/14/2012 Inactive 5mg tue thru sat4mg mon frid sun(has 2mg and 1 mg tab) Metanx 3 mg-35 mg-2 mg tablet RxNorm: 1 Tablet(s) PO BID 04/18/2012 12/24/2013 Inactive dicyclomine 20 mg tablet RxNorm: 573000 1 Tablet(s) PO 04/18/2012 06/23/2013 Inactive one ac dinner and up to tid prn digoxin 125 mcg tablet RxNorm: 1116245 Tablet(s) PO daily except .25 on Tuesdays and 04/09/2012 05/28/2012 Inactive omeprazole 20 mg tablet,delayed release RxNorm: 501030 1 Tablet(s) PO BID 04/09/2012 04/03/2013 Inactive digoxin 125 mcg tablet RxNorm: 1943373 1 Tablet(s) PO UD daily except none on Tuesdays and 03/13/2012 04/08/2012 Inactive Premarin 0.625 mg/gram Vaginal Cream RxNorm: 314151 1 Application VAG 1 applicator per vagina 3 times per week 02/20/2012 02/13/2013 Inactive omeprazole 20 mg tablet,delayed release RxNorm: 336326 1 Tablet(s) PO BID 02/13/2012 04/08/2012 Inactive Vesicare 10 mg tablet RxNorm: 218758 1 Tablet(s) PO QHS 02/13/2012 02/06/2013 Inactive Diflucan 150 mg tablet RxNorm: 650415 1 Tablet(s) PO daily 02/13/2012 02/19/2012 Inactive omeprazole 20 mg tablet,delayed release RxNorm: 482976 1 Tablet(s) PO BID 01/06/2012 02/12/2012 Inactive Calcium 600 + D(3) 600 mg (1,500)-200 unit Tab RxNorm: 870465 2 Tablet(s) PO BID 01/06/2012 08/31/2015 Inactive diltiazem 90 mg tablet RxNorm: 094743 1/2 Tablet(s) PO QPM 12/26/2011 02/12/2013 Inactive also 180 q am diltiazem ER 180 mg Cap RxNorm: 968039 1 Capsule(s) PO QAM 12/26/2011 04/08/2012 Inactive 45mg q hs Flagyl 500 mg Tab RxNorm: 717878 1 Tablet(s) PO BID 12/14/2011 12/20/2011 Inactive dicyclomine 10 mg Cap RxNorm: 431267 1 Capsule(s) PO AC & HS 12/01/2011 12/25/2011 Inactive Levaquin 500 mg Tab RxNorm: 002238 1 Tablet(s) PO daily 11/23/2011 11/29/2011 Inactive Rocephin 500 mg Solution for Injection RxNorm: 749554 Inj 11/23/2011 11/23/2011 Inactive acyclovir 400 mg Tab RxNorm: 900627 1 Tablet(s) PO QID 11/10/2011 11/19/2011 Inactive acyclovir 400 mg Tab RxNorm: 040817 1 Tablet(s) PO QID 11/10/2011 11/09/2011 Inactive lisinopril 20 mg Tab RxNorm: 663141 1 Tablet(s) PO daily 10/03/2011 11/27/2011 Inactive lisinopril 20 mg Tab RxNorm: 326836 1 Tablet(s) PO daily 08/08/2011 10/02/2011 Inactive Reclast 5 mg/100 mL IV RxNorm: 865262 Milliliter(s) IV Yearly 06/08/2011 01/16/[address] Hansen manages Rocephin 500 mg Solution for Injection RxNorm: 404814 1 Milliliter(s) Inj 03/04/2011 08/08/2011 Inactive Ceftin 500 mg Tab RxNorm: 466803 1 Tablet(s) PO BID 03/04/2011 08/08/2011 Inactive Vitamin D3 1,000 unit tablet RxNorm: 838541 2 Tablet(s) PO daily No Start Date Active Stool Softener 100 mg tablet RxNorm: 7163951 2 Tablet(s) PO QHS No Start Date Active Beano tablet RxNorm: 2-3 Tablet(s) PO as needed No Start Date Active Probiotic Pearls 15 mg (1 billion cell) capsule,delayed release RxNorm: 1 Capsule(s) PO daily No Start Date Active Lipitor 10 mg tablet RxNorm: 894856 1 Tablet(s) PO daily No Start Date Active Miralax 17 gram oral powder packet RxNorm: 178820 1/2 packet PO QHS No Start Date Active multivitamin Tab RxNorm: 1 Tablet(s) PO daily No Start Date Active Tylenol Extra Strength 500 mg tablet RxNorm: 107160 2 Tablet(s) PO as needed No Start Date Active Combigan 0.2 %-0.5 % eye drops RxNorm: 910633 1 Drop(s) OPH BID No Start Date Active 1 drop twice daily left eye Lexapro 5 mg tablet RxNorm: 166562 1 Tablet(s) PO daily No Start Date Active Tatiana Allergy 180 mg tablet RxNorm: 053348 1 Tablet(s) PO daily No Start Date Active Lotemax 0.5 % eye drops,suspension RxNorm: 953992 1 Drop(s) OPH right eye BID No Start Date Active Levoxyl 50 mcg tablet RxNorm: 716085 1 Tablet(s) PO daily No Start Date 01/15/2013 Inactive lisinopril-hydrochlorothiazide 20 mg-25 mg Tab RxNorm: 021944 1 Tablet(s) PO daily No Start Date 08/07/2011 Inactive Metanx 3 mg-35 mg-2 mg tablet RxNorm: 1 Tablet(s) PO daily No Start Date 04/17/2012 Inactive diltiazem CD 120 mg capsule,extended release 24 hr RxNorm: 764158 1 Capsule(s) PO daily No Start Date 09/28/2015 Inactive lisinopril 20 mg tablet RxNorm: 133333 Tablet(s) PO No Start Date Active Lumigan 0.01 % Eye Drops RxNorm: 0314905 1 Drop(s) OPH daily Left eye No Start Date 12/10/2013 Inactive prednisolone acetate 1 % Eye Drops, Susp RxNorm: 7069420 1 Drop(s) OPH BID 1 drop right eye am and hs No Start Date 11/02/2015 Inactive Eliquis 5 mg tablet RxNorm: 1611059 1 Tablet(s) PO BID No Start Date 06/08/2016 Inactive potassium gluconate (bulk) Misc RxNorm: Miscellaneous No Start Date 12/25/2011 Inactive Calcium 600 + D(3) 600 mg (1,500)-200 unit Tab RxNorm: 812379 3 Tablet(s) PO daily No Start Date 2012 Inactive Zyrtec 10 mg tablet RxNorm: 3063958 1 Tablet(s) PO daily No Start Date 08/02/2016 Inactive Synthroid 100 mcg tablet RxNorm: 518053 1 Tablet(s) PO daily No Start Date 09/04/2013 Inactive metoprolol succinate ER 50 mg tablet,extended release 24 hr RxNorm: 068263 1 Tablet(s) PO daily No Start Date 03/23/2016 Inactive Carafate 100 mg/mL oral suspension RxNorm: 471402 2 Teaspoon(s) PO as needed with reflux symptoms No Start Date 06/03/2018 Inactive Metanx 3 mg-35 mg-2 mg tablet RxNorm: 1 Tablet(s) PO daily 2pm No Start Date 11/02/2015 Inactive Lexapro 5 mg tablet RxNorm: 267772 1 Tablet(s) PO daily No Start Date 08/18/2015 Inactive Iron (dried) oral RxNorm: 17484 oral No Start Date 11/02/2015 Inactive timolol 0.5 % Eye Drops RxNorm: 527030 1 Drop(s) OPH daily left eye No Start Date 12/18/2013 Inactive multivitamin Cap RxNorm: 1 Capsule(s) PO daily No Start Date 12/25/2011 Inactive dicyclomine 10 mg Cap RxNorm: 684849 2 Capsule(s) PO daily No Start Date 11/30/2011 Inactive silver sulfadiazine 1 % Topical Cream RxNorm: 813487 TOP apply to affected area with each dressing change No Start Date 12/18/2012 Inactive magnesium oxide 400 mg Tab RxNorm: 080500 1 Tablet(s) PO daily No Start Date 11/02/2015 Inactive Pradaxa 75 mg Cap RxNorm: 3298620 1 Capsule(s) PO BID No Start Date 04/09/2012 Inactive magnesium oxide 400 mg Tab RxNorm: 407132 2 Tablet(s) PO daily magnesium plus zinc No Start Date 12/25/2011 Inactive biotin 1000 mg RxNorm: 1 PO daily No Start Date 12/25/2011 Inactive Synthroid 50 mcg Tab RxNorm: 703163 Tablet(s) PO No Start Date 12/25/2011 Inactive diltiazem ER 180 mg Cap RxNorm: 629880 1 Capsule(s) PO daily No Start Date 12/25/2011 Inactive 1 D 3 1000 iu Oral RxNorm: Oral No Start Date 12/25/2011 Inactive Coumadin 2 mg tablet RxNorm: 814830 Tablet(s) PO No Start Date 04/24/2012 Inactive 5mg tue mgwy1xb mon sat sun(has 2mg and 1 mg tab) dicyclomine 20 mg tablet RxNorm: 050816 Tablet(s) PO No Start Date 04/17/2012 Inactive one ac dinner and up to tid prn lactobacillus acidophilus tablet RxNorm: 1 Tablet(s) PO daily No Start Date 11/03/2015 Inactive Eliquis 2.5 mg tablet RxNorm: 8987037 1 Tablet(s) PO BID No Start Date 07/25/2017 Inactive Levoxyl 75 mcg Tab RxNorm: 046645 1 Tablet(s) PO daily No Start Date 10/02/2011 Inactive digoxin 125 mcg tablet RxNorm: 6030838 1 Tablet(s) PO daily No Start Date 03/12/2012 Inactive pantoprazole 40 mg tablet,delayed release RxNorm: 181857 1 Tablet(s) PO BID No Start Date 01/04/2016 Inactive cyclobenzaprine 5 mg tablet RxNorm: 027187 1/2 Tablet(s) PO Q8 PRN No Start Date 10/24/2016 Inactive diltiazem 90 mg Tab RxNorm: 551599 1/2 Tablet(s) PO QPM No Start Date 12/25/2011 Inactive Mirapex 1 mg Tab RxNorm: 373257 1 Tablet(s) PO QHS No Start Date 12/25/2011 Inactive Xanax 0.25 mg tablet RxNorm: 048115 1 Tablet(s) PO Q6 PRN No Start Date 11/10/2013 Inactive Premarin 0.625 mg/gram Vaginal Cream RxNorm: 484483 1 Application VAG 1 applicator per vagina 3 times per week No Start Date 02/19/2012 Inactive Synthroid 75 mcg Tab RxNorm: 591445 1 Tablet(s) PO daily No Start Date 04/17/2012 Inactive lisinopril 40 mg Tab RxNorm: 466935 1 Tablet(s) PO daily No Start Date 12/25/2011 Inactive Glucosamine Chondroitin Complex Advanced [id number]-1.65mg Tab RxNorm: 2 Tablet(s) PO daily No Start Date 08/08/2011 Inactive famotidine 20 mg tablet RxNorm: 512533 1 Tablet(s) PO QAM No Start Date 11/02/2015 Inactive cranberry extract 250 mg Tab RxNorm: 342073 2 Tablet(s) PO daily No Start Date 08/08/2011 Inactive Vitamin D3 1,000 unit capsule RxNorm: 372163 1 Capsule(s) PO daily No Start Date 08/31/2015 Inactive aspirin 81 mg Tab, Delayed Release RxNorm: 769104 1 Tablet(s) PO daily No Start Date 08/31/2015 Inactive diltiazem ER 120 mg capsule,extended release RxNorm: 876420 1 Capsule(s) PO daily patient would like 4 months at a time No Start Date 06/02/2013 Inactive omeprazole 20 mg Tab, Delayed Release RxNorm: 788814 2 Tablet(s) PO QHS No Start Date 2012 Inactive lisinopril 10 mg tablet RxNorm: 331440 1/2 Tablet(s) PO daily No Start Date 10/16/2012 Inactive Pred Forte 1 % Eye Drops RxNorm: 558307 1 Drop(s) OPH daily right eye No Start Date 12/25/2013 Inactive calcium carbonate 400 mg Chewable Tab RxNorm: 831806 1 Tablet(s) PO daily No Start Date 08/08/2011 Inactive Vesicare 10 mg tablet RxNorm: 129010 1 Tablet(s) PO QHS No Start Date 02/12/2012 Inactive Symbicort 160 mcg-4.5 mcg/actuation HFA aerosol inhaler RxNorm: 4687842 2 Puff(s) INH BID No Start Date 12/13/2017 Inactive potassium 99 mg tablet RxNorm: 1 Tablet(s) PO QPM No Start Date 12/25/2013 Inactive timolol 0.25 % Eye Drops RxNorm: 669101 1 Drop(s) OPH daily Left eye No Start Date 04/17/2012 Inactive diltiazem ER 90 mg capsule,extended release 12 hr RxNorm: 387356 1/2 Capsule(s) PO QPM No Start Date 04/28/2014 Inactive cyclobenzaprine 5 mg Tab RxNorm: 329977 2-1 Tablet(s) PO Q8 PRN No Start Date 12/25/2011 Inactive 1/2 - 1 tab q 8hrs prn muscle spasms Medication Administered Medication Codes Instructions Start Date Status Influenza Virus Vaccine 0.5 mL RxNorm: 04/23/2013 No longer Active Rocephin 500 mg Solution for Injection RxNorm: 416044 11/23/2011 No longer Active Immunizations Vaccine Codes [...] hypertension ICD-10: I10 ICD-9: 401.9 01/31/2018 Other salvage determiner (current) drug therapy ICD-10: Z79.899 ICD-9: V58.83 [...] Observation Code Item Item Code Result Date Digoxin Ord9 DIGOXIN 0.6 NG/ML 05/08/2018 Tsh Ord6 TSH (3rd IS) 10.58 uIU/mL 05/08/2018 Free T4 Uml222 FREE T4 1.19 ng/dL 05/08/2018 Tsh Ord6 TSH (3rd IS) 1.07 uIU/mL 01/31/2018 Free T4 Tdn072 FREE T4 1.63 ng/dL 01/31/2018 Digoxin Ord9 DIGOXIN 0.8 NG/ML 01/31/2018 C RAP A SC [id number] Strep A Negative 11/21/2016 Thyroid Antibodies 060475 THYROGLOBULIN ANTIBODY . 11/04/2016 Thyroid Antibodies 069838 THYROGLOBULIN ANTIBODY 919 IU/mL 11/04/2016 Thyroid Antibodies 033782 THYROID PEROXIDASE (TPO) AB . 11/04/2016 Thyroid Antibodies 962443 THYROID PEROXIDASE (TPO) AB 10 IU/mL 11/04/2016 Total T3 Ord42 TT3 0.64 ng/ml 11/03/2016 Tsh Ord6 hTSH II 7.50 uIU/mL 11/02/2016 Free T4 Kyt888 FREE T4 1.39 ng/dL 11/02/2016 Cbc With Differential Ord2 WBC 6.5 [...] Differential Ord2 RDW 13.8 % 05/26/2015 Pt Bls8376 PT 25.0 seconds 05/26/2015 Pt Eui3086 INR 2.4 05/26/2015 Pt Wln4784 Low Intensity - 1.5-2.0 05/26/2015 Pt Vsq8045 Mod intensity - 2.0-3.0 05/26/2015 Pt Whz3024 Hi intensity - 3.0-4.0 05/26/2015 Uric Acid Ord77 Uric A 3.1 mg/dL 05/22/2015 Comp Metabolic Hpv722 NA 132 mEq/L 05/06/2015 Comp Metabolic Oxp694 K 4.1 mEq/L 05/06/2015 Comp Metabolic Dkv359 CL 98 mEq/L 05/06/2015 Comp Metabolic Gyv427 CO2 27.0 mEq/L 05/06/2015 Comp Metabolic Uly034 ANION GAP 11 05/06/2015 Comp Metabolic Ejx911 GLUCOSE 71 mg/dL 05/06/2015 Comp Metabolic Fdf796 Creat 0.7 mg/dL 05/06/2015 Comp Metabolic Lat381 eGFR 82 ml/min/1.73m2 05/06/2015 Comp Metabolic Asa029 BUN 16 mg/dL 05/06/2015 Comp Metabolic Azw773 B/C Ratio 22.2 Ratio 05/06/2015 Comp Metabolic Clz532 CALCIUM 9.4 mg/dL 05/06/2015 Comp Metabolic Bae582 ALK PHOS 60 U/L 05/06/2015 Comp Metabolic Nev956 AST(SGOT) 22 U/L 05/06/2015 Comp Metabolic Jzt285 ALT(SGPT) 24 U/L 05/06/2015 Comp Metabolic Uck964 BILI T 0.8 mg/dL 05/06/2015 Comp Metabolic Xtc969 ALBUMIN 4.3 g/dL 05/06/2015 Comp Metabolic Zyw566 TPRO 7.6 g/dL 05/06/2015 Comp Metabolic Huf876 GLOB 3.3 g/dL 05/06/2015 Comp Metabolic Jxy948 A/G Ratio 1.3 Ratio 05/06/2015 Comp Metabolic Lyc474 Osmo 264 mOsmo 05/06/2015 Tsh Ord6 hTSH II 3.12 uIU/mL 05/06/2015 [...] Digoxin Ord9 DIGOXIN 0.6 NG/ML 05/06/2015 Pt Rbh1234 PT 23.3 seconds 05/06/2015 Pt Ywv7449 INR 2.1 05/06/2015 Pt Kti8213 Low Intensity - 1.5-2.0 05/06/2015 Pt Zib1659 Mod intensity - 2.0-3.0 05/06/2015 Pt Wdz5528 Hi intensity - 3.0-4.0 05/06/2015 Free T4 Mnc217 FREE T4 1.65 ng/dL 05/06/2015 DIGOXIN 0202512 DIGOXIN 1.1 NG/ML 05/15/2013 PT/MC 4850686 PRO TIME 21.7 SEC 05/15/2013 PT/MC 2437746 INR MCMC 2.0 05/15/2013 CHEM 14 3519136 AST 24 U/L 04/23/2013 CHEM 14 7674044 ALT 31 IU/L 04/23/2013 CHEM 14 5786620 BUN 13 MG/DL 04/23/2013 CHEM 14 2885729 ALBUMIN 4.1 GM/DL 04/23/2013 CHEM 14 7556378 CHLORIDE 103 MMOL/L 04/23/2013 CHEM 14 1882472 BILI TOT 0.5 MG/DL 04/23/2013 CHEM 14 1919079 ALK PHOS 44 U/L 04/23/2013 CHEM 14 3280637 SODIUM 137 MMOL/L 04/23/2013 CHEM 14 9557376 CREATININE 0.61 MG/DL 04/23/2013 CHEM 14 1875736 CALCIUM 9.5 MG/DL 04/23/2013 CHEM 14 4377000 POTASSIUM 4.0 MMOL/L 04/23/2013 CHEM 14 5121224 PROT TOT 6.6 GM/DL 04/23/2013 CHEM 14 2687363 GLUCOSE 99 MG/DL 04/23/2013 CHEM 14 0398879 BICARB 27 MMOL/L 04/23/2013 CHEM 14 4812158 ANION GAP 7 MEQ/L 04/23/2013 GFR CALC 8466009 GFR AA >60 ML/MIN 04/23/2013 GFR CALC 0479256 GFR NON-AA >60 ML/MIN 04/23/2013 TSH 7564218 TSH 4.204 uIU/ML 04/23/2013 CBC 7037959 WBC 6.7 10e9/L 04/23/2013 CBC 1717769 RBC 4.19 10e12/L 04/23/2013 CBC 1071510 HGB 13.2 g/dL 04/23/2013 CBC 3088981 HCT DET 39.2 % 04/23/2013 CBC 8550474 MCV 93.6 fL 04/23/2013 CBC 7930346 MCH 31.5 pg 04/23/2013 CBC 3803824 MCHC 33.7 g/dL 04/23/2013 CBC 2328809 PLT 202 10e9/L 04/23/2013 CBC 7877271 MPV 11.4 fL 04/23/2013 CBC 0515294 YANIRA % 70.5 % 04/23/2013 CBC 5212378 LY % 19.6 % 04/23/2013 CBC 8479844 MON % 8.2 % 04/23/2013 CBC 8874361 EOS % 1.6 % 04/23/2013 CBC 6562140 BASO % 0.1 % 04/23/2013 CBC 2206801 RDW 13.7 % 04/23/2013 CBC 7316321 ABS YANIRA 4.72 10e9/L 04/23/2013 CBC 7629227 ABS LYMPH 1.31 10e9/L 04/23/2013 CBC 8327743 ABS MONO 0.55 10e9/L 04/23/2013 CBC 4698095 ABS EOS 0.11 10e9/L 04/23/2013 CBC 8401694 ABS BASO 0.01 10e9/L 04/23/2013 CBC 8616315 RDW-SD 45.7 fL 04/23/2013 PT/MC 1886395 PRO TIME 13.4 SEC 12/17/2012 PT/MC 1347707 INR MCMC 1.0 12/17/2012 PT/MC 8271713 PRO TIME 16.6 SEC 12/14/2012 PT/MC 2954015 INR MCMC 1.4 12/14/2012 PT/MC 6204592 PRO TIME 27.2 SEC 12/11/2012 PT/MC 0931204 INR MCMC 2.6 12/11/2012 DIGOXIN 9969370 DIGOXIN 2.1 NG/ML 03/08/2012 GFR CALC 0346963 GFR AA >60 ML/MIN 03/08/2012 GFR CALC 6131626 GFR NON-AA >60 ML/MIN 03/08/2012 CHEM 14 20280112 AST 16 U/L 03/08/2012 CHEM 14 3792851 ALT 14 IU/L 03/08/2012 CHEM 14 6494457 BUN 10 MG/DL 03/08/2012 CHEM 14 6541776 ALBUMIN 4.2 GM/DL 03/08/2012 CHEM 14 7322839 CHLORIDE 100 MMOL/L 03/08/2012 CHEM 14 3946571 BILI TOT 0.5 MG/DL 03/08/2012 CHEM 14 5015031 ALK PHOS 59 U/L 03/08/2012 CHEM 14 5062693 SODIUM 136 MMOL/L 03/08/2012 CHEM 14 6604790 CREATININE 0.65 MG/DL 03/08/2012 CHEM 14 5605058 CALCIUM 9.4 MG/DL 03/08/2012 CHEM 14 5558654 POTASSIUM 3.9 MMOL/L 03/08/2012 CHEM 14 8538515 PROT TOT 6.7 GM/DL 03/08/2012 CHEM 14 0275462 GLUCOSE 90 MG/DL 03/08/2012 CHEM 14 7853198 BICARB 30 MMOL/L 03/08/2012 CHEM 14 5489251 ANION GAP 6 MEQ/L 03/08/2012 CHEM 14 8730964 AST 16 U/L 11/23/2011 CHEM 14 7552975 ALT 14 IU/L 11/23/2011 CHEM 14 0929465 BUN 11 MG/DL 11/23/2011 CHEM 14 2015582 ALBUMIN 4.1 GM/DL 11/23/2011 CHEM 14 4130279 CHLORIDE 100 MMOL/L 11/23/2011 CHEM 14 0745142 BILI TOT 0.5 MG/DL 11/23/2011 CHEM 14 7283129 ALK PHOS 50 U/L 11/23/2011 CHEM 14 3669559 SODIUM 135 MMOL/L 11/23/2011 CHEM 14 0057095 CREATININE 0.57 MG/DL 11/23/2011 CHEM 14 5122511 CALCIUM 9.1 MG/DL 11/23/2011 CHEM 14 2183760 POTASSIUM 4.5 MMOL/L 11/23/2011 CHEM 14 9787485 PROT TOT 6.5 GM/DL 11/23/2011 CHEM 14 3993127 GLUCOSE 89 MG/DL 11/23/2011 CHEM 14 0029432 BICARB 28 MMOL/L 11/23/2011 CHEM 14 9469556 ANION GAP 7 MEQ/L 11/23/2011 GFR CALC 0250987 GFR AA >60 ML/MIN 11/23/2011 GFR CALC 6096348 GFR NON-AA >60 ML/MIN 11/23/2011 CBC 2987336 WBC 5.1 10e9/L 11/23/2011 CBC 5873517 RBC 4.06 10e12/L 11/23/2011 CBC 8563112 HGB 12.5 g/dL 11/23/2011 CBC 3118376 HCT DET 37.3 % 11/23/2011 CBC 3475091 MCV 91.9 fL 11/23/2011 CBC 9248730 MCH 30.8 pg 11/23/2011 CBC 9432801 MCHC 33.5 g/dL 11/23/2011 CBC 1243914 PLT 222 10e9/L 11/23/2011 CBC 6224177 MPV 10.8 fL 11/23/2011 CBC 7044662 YANIRA % 64.2 % 11/23/2011 CBC 2128823 LY % 22.3 % 11/23/2011 CBC 9418546 MON % 11.3 % 11/23/2011 CBC 3043833 EOS % 1.8 % 11/23/2011 CBC 4480086 BASO % 0.4 % 11/23/2011 CBC 2496931 RDW 13.6 % 11/23/2011 CBC 7053923 ABS YANIRA 3.27 10e9/L 11/23/2011 CBC 7753199 ABS LYMPH 1.14 10e9/L 11/23/2011 CBC 7283460 ABS MONO 0.58 10e9/L 11/23/2011 CBC 5654749 ABS EOS 0.09 10e9/L 11/23/2011 CBC 3312052 ABS BASO 0.02 10e9/L 11/23/2011 CBC 3986277 RDW-SD 44.5 fL 11/23/2011 UA 95118 Specific Fiatt 1.005 03/04/2011 UA 53151 PH 6 03/04/2011 UA 63524 GLUCOSE N 03/04/2011 UA 92810 Protein N 03/04/2011 UA 88445 Blood ++ 03/04/2011 UA 49579 Bilirubin N 03/04/2011 UA 33851 Ketones N 03/04/2011 UA 43149 Urobilinogen N 03/04/2011 UA 70813 Nitrite N 03/04/2011 UA 13407 Leukocytes N 03/04/2011 URINALYSIS NONAUTO W/O SCOPE 08179 Specific Fiatt 1.010 DateTime(Free Text in Aprima) URINALYSIS NONAUTO W/O SCOPE 95098 PH 6.5 DateTime(Free Text in Aprima) URINALYSIS NONAUTO W/O SCOPE 50851 GLUCOSE neg DateTime(Free Text in Aprima) URINALYSIS NONAUTO W/O SCOPE 46508 Protein neg DateTime(Free Text in Aprima) URINALYSIS NONAUTO W/O SCOPE 68309 Blood 3+ DateTime(Free Text in Aprima) URINALYSIS NONAUTO W/O SCOPE 48291 Bilirubin neg DateTime(Free Text in Aprima) URINALYSIS NONAUTO W/O SCOPE 54992 Ketones neg DateTime(Free Text in Aprima) URINALYSIS NONAUTO W/O SCOPE 13119 Urobilinogen neg DateTime(Free Text in Aprima) URINALYSIS NONAUTO W/O SCOPE 81259 Nitrite neg DateTime(Free Text in Aprima) URINALYSIS NONAUTO W/O SCOPE 98237 Leukocytes neg DateTime(Free Text in Aprima) URINALYSIS NONAUTO W/O SCOPE 69972 Specific Fiatt 1.010 DateTime(Free Text in Aprima) URINALYSIS NONAUTO W/O SCOPE 07047 PH 5 DateTime(Free Text in Aprima) URINALYSIS NONAUTO W/O SCOPE 53326 GLUCOSE neg DateTime(Free Text in Aprima) URINALYSIS NONAUTO W/O SCOPE 97357 Protein neg DateTime(Free Text in Aprima) URINALYSIS NONAUTO W/O SCOPE 72610 Blood 3+ DateTime(Free Text in Aprima) URINALYSIS NONAUTO W/O SCOPE 33436 Bilirubin neg DateTime(Free Text in Aprima) URINALYSIS NONAUTO W/O SCOPE 62183 Ketones neg DateTime(Free Text in Aprima) URINALYSIS NONAUTO W/O SCOPE 31834 Urobilinogen neg DateTime(Free Text in Aprima) URINALYSIS NONAUTO W/O SCOPE 83404 Nitrite neg DateTime(Free Text in Aprima) URINALYSIS NONAUTO W/O SCOPE 05873 Leukocytes neg DateTime(Free Text in Aprima) URINALYSIS NONAUTO W/O SCOPE 49534 Specific Fiatt 1.005 DateTime(Free Text in Aprima) URINALYSIS NONAUTO W/O SCOPE 86484 PH 8.5 DateTime(Free Text in Aprima) URINALYSIS NONAUTO W/O SCOPE 12642 GLUCOSE neg DateTime(Free Text in Aprima) URINALYSIS NONAUTO W/O SCOPE 91555 Protein neg DateTime(Free Text in Aprima) URINALYSIS NONAUTO W/O SCOPE 20235 Blood 1+ DateTime(Free Text in Aprima) URINALYSIS NONAUTO W/O SCOPE 73103 Bilirubin neg DateTime(Free Text in Aprima) URINALYSIS NONAUTO W/O SCOPE 54852 Ketones neg DateTime(Free Text in Aprima) URINALYSIS NONAUTO W/O SCOPE 23469 Urobilinogen neg DateTime(Free Text in Aprima) URINALYSIS NONAUTO W/O SCOPE 81703 Nitrite neg DateTime(Free Text in Aprima) URINALYSIS NONAUTO W/O SCOPE 58455 Leukocytes neg DateTime(Free Text in Aprima) URINALYSIS NONAUTO W/O SCOPE 79671 Specific Fiatt 1.005 DateTime(Free Text in Aprima) URINALYSIS NONAUTO W/O SCOPE 51874 PH 7 DateTime(Free Text in Aprima) URINALYSIS NONAUTO W/O SCOPE 10735 GLUCOSE neg DateTime(Free Text in Aprima) URINALYSIS NONAUTO W/O SCOPE 33875 Protein neg DateTime(Free Text in Aprima) URINALYSIS NONAUTO W/O SCOPE 14474 Blood large DateTime(Free Text in Aprima) URINALYSIS NONAUTO W/O SCOPE 18685 Bilirubin neg DateTime(Free Text in Aprima) URINALYSIS NONAUTO W/O SCOPE 18439 Ketones neg DateTime(Free Text in Aprima) URINALYSIS NONAUTO W/O SCOPE 01905 Urobilinogen 0.2 DateTime(Free Text in Aprima) URINALYSIS NONAUTO W/O SCOPE 11455 Nitrite neg DateTime(Free Text in Aprima) URINALYSIS NONAUTO W/O SCOPE 78697 Leukocytes neg DateTime(Free Text in Aprima) URINALYSIS NONAUTO W/O SCOPE 68988 Specific Fiatt 1.005 DateTime(Free Text in Aprima) URINALYSIS NONAUTO W/O SCOPE 69585 PH 7.5 DateTime(Free Text in Aprima) URINALYSIS NONAUTO W/O SCOPE 08795 GLUCOSE DateTime(Free Text in Aprima) URINALYSIS NONAUTO W/O SCOPE 28514 Protein trace DateTime(Free Text in Aprima) URINALYSIS NONAUTO W/O SCOPE 34847 Blood 4+ DateTime(Free Text in Aprima) URINALYSIS NONAUTO W/O SCOPE 46838 Bilirubin DateTime(Free Text in Aprima) URINALYSIS NONAUTO W/O SCOPE 06654 Ketones DateTime(Free Text in Aprima) URINALYSIS NONAUTO W/O SCOPE 40673 Urobilinogen DateTime(Free Text in Aprima) URINALYSIS NONAUTO W/O SCOPE 46212 Nitrite DateTime(Free Text in Aprima) URINALYSIS NONAUTO W/O SCOPE 83983 Leukocytes trace DateTime(Free Text in Aprima) Review [...] FLU VACC PRSV FREE INC ANTIG CPT-4: 22856 03/27/2017 PPPS, SUBSEQ VISIT CPT- 4: G0439 01/23/2017 URINALYSIS NONAUTO W/O SCOPE CPT-4: 50148 05/17/2016 ADMIN INFLUENZA VIRUS VAC CPT-4: G0008 03/24/2016 FLU VACC PRSV FREE INC ANTIG CPT-4: 70042 03/24/2016 ADMIN PNEUMOCOCCAL VACCINE SNOMED CT: 00628074 CPT-4: G0009 05/13/2015 PNEUMOCOCCAL VACC [address]: 30639334 CPT-4: 47101 05/13/2015 Pneumococcal Polysaccharide Vaccine, 23-Valent, Ad Assigned to/Mela Bledsoe CPT-4: 38219Sphjgpi 07/11/2014 ADMIN PNEUMOCOCCAL VACCINE SNOMED CT: 51755790 CPT-4: G0009 07/11/2014 URINALYSIS NONAUTO W/O SCOPE CPT-4: 23086 05/14/2014 URINALYSIS NONAUTO W/O SCOPE CPT-4: 60879 05/06/2014 URINALYSIS NONAUTO W/O SCOPE CPT-4: 52832 04/29/2014 ADMIN INFLUENZA VIRUS VAC CPT-4: G0008 03/20/2014 FLU VAC NO PRSV 4 SCOTT 3 YRS+ Assigned to/Mela Bledsoe CPT-4: 68629Oklmyos 03/20/2014 URINALYSIS NONAUTO W/O SCOPE CPT-4: 13991 07/29/2013 URINALYSIS NONAUTO W/O SCOPE CPT-4: 48624 07/01/2013 URINALYSIS NONAUTO W/O SCOPE CPT-4: 73187 06/20/2013 ROUTINE VENIPUNCTURE CPT- 4: 42590 05/15/2013 ROUTINE VENIPUNCTURE CPT- 4: 12508 04/23/2013 ADMIN INFLUENZA VIRUS VAC CPT-4: G0008 04/23/2013 FLULAVAL VACC, 3 YRS & >, IM CPT-4: Q2036 04/23/2013 ROUTINE VENIPUNCTURE CPT- 4: 25515 12/17/2012 ROUTINE VENIPUNCTURE CPT- 4: 48292 12/14/2012 ROUTINE VENIPUNCTURE CPT- 4: 14397 12/11/2012 PRESCRIP TRANSMIT VIA ERX SY CPT-4: G8553 12/11/2012 PRESCRIP TRANSMIT VIA ERX SY CPT-4: G8553 10/30/2012 URINALYSIS NONAUTO W/O SCOPE CPT-4: 40292 09/13/2012 ADMIN INFLUENZA VIRUS VAC CPT-4: G0008 04/18/2012 FLULAVAL VACC, 3 YRS & >, IM CPT-4: Q2036 04/18/2012 URINALYSIS NONAUTO W/O SCOPE CPT-4: 16850 03/13/2012 ROUTINE VENIPUNCTURE CPT- 4: 34295 03/08/2012 URINALYSIS NONAUTO W/O SCOPE CPT-4: 20949 02/13/2012 PRESCRIP TRANSMIT VIA ERX SY CPT-4: G8553 02/13/2012 ROCEPHIN, PER 250 MG CPT- 4: J0696 11/23/2011 ROUTINE VENIPUNCTURE CPT- 4: 79421 11/23/2011 URINALYSIS NONAUTO W/O SCOPE CPT-4: 00684 11/23/2011 PRESCRIP TRANSMIT VIA ERX SY CPT-4: G8553 11/23/2011 REMOVE IMPACTED EAR WAX UNI CPT-4: 62440 10/17/2011 PRESCRIP TRANSMIT VIA ERX SY CPT-4: G8553 10/03/2011 PRESCRIP TRANSMIT VIA ERX SY CPT-4: G8553 08/08/2011 URINALYSIS NONAUTO W/O SCOPE CPT-4: 51007 03/15/2011 URINALYSIS NONAUTO W/O SCOPE CPT-4: 12597 03/04/2011 THER/PROPH/DIAG INJ SC/IM CPT-4: 91318 03/04/2011 ROCEPHIN, PER 250 MG CPT- 4: J0696 03/04/2011 Vital Signs Date Vital 06/04/2018 Blood Pressure 1: 124/72 Code: 8480-6 BMI: 21.3 Code: 44622-1 Heart Rate 1: 98 bpm Height: 5' Weight: 109 lbs 01/31/2018 Blood Pressure 1: 116/68 Code: 8480-6 BMI: 21.1 Code: 70947-6 Heart Rate 1: 89 bpm Height: 5' SpO2: 98% Weight: 108 lbs 01/17/2018 Blood Pressure 1: 134/74 Code: 8480-6 BMI: 21.3 Code: 73242-4 Heart Rate 1: 74 bpm Height: 5' SpO2: 96% Waist Measure (cm): 71 cm Weight: 109 lbs 12/14/2017 Blood Pressure 1: 150/78 Code: 8480-6 BMI: 21.5 Code: 75844-2 Heart Rate 1: 77 bpm Height: 5' SpO2: 98% Temperature: 36.7 (C) / 98.1 (F) Weight: 110 lbs 12/07/2017 Blood Pressure 1: 134/70 Code: 8480-6 Heart Rate 1: 76 bpm Height: SpO2: 98% Temperature: 36.8 (C) / 98.2 (F) Weight: 11/14/2017 Blood Pressure 1: 152/84 Code: 8480-6 BMI: 21.9 Code: 67982-7 Heart Rate 1: 95 bpm Height: 5' SpO2: 93% Weight: 112 lbs 03/27/2017 Blood Pressure 1: 122/70 Code: 8480-6 BMI: 21.3 Code: 51635-9 Heart Rate 1: 75 bpm Height: 5' Weight: 109 lbs 01/23/2017 BMI: 21.5 Code: 17061-9 Height: 5' Weight: 110 lbs 01/19/2017 Blood Pressure 1: 112/60 Code: 8480-6 BMI: 21.5 Code: 82434-6 Heart Rate 1: 54 bpm Height: 5' SpO2: 97% Weight: 110 lbs 11/29/2016 Blood Pressure 1: 126/68 Code: 8480-6 Height: 5' Weight: 11/23/2016 Blood Pressure 1: 130/72 Code: 8480-6 BMI: 21.9 Code: 21780-7 Heart Rate 1: 48 bpm Height: 5' SpO2: 97% Temperature: 36.7 (C) / 98.0 (F) Weight: 112 lbs 11/21/2016 Blood Pressure 1: 134/76 Code: 8480-6 BMI: 21.9 Code: 68212-8 Heart Rate 1: 41 bpm Height: 5' SpO2: 94% Temperature: 36.9 (C) / 98.4 (F) Weight: 112 lbs 11/08/2016 Blood Pressure 1: 126/74 Code: 8480-6 Heart Rate 1: 82 bpm Height: 5' SpO2: 94% Weight: 11/02/2016 Blood Pressure 1: 112/66 Code: 8480-6 Heart Rate 1: 72 bpm Height: 5' SpO2: 95% Weight: 10/27/2016 Blood Pressure 1: 130/64 Code: 8480-6 BMI: 21.7 Code: 88465-8 Heart Rate 1: 81 bpm Height: 5' SpO2: 96% Weight: 111 lbs 08/31/2016 Blood Pressure 1: 132/72 Code: 8480-6 BMI: 22.5 Code: 35168-0 Heart Rate 1: 66 bpm Height: 5' Weight: 115 lbs 07/27/2016 Blood Pressure 1: 166/74 Code: 8480-6 BMI: 23.2 Code: 70124-8 Heart Rate 1: 48 bpm Height: 5' SpO2: 90% Temperature: 36.8 (C) / 98.2 (F) Weight: 119 lbs 06/23/2016 Blood Pressure 1: 128/70 Code: 8480-6 BMI: 22.3 Code: 76933-0 Heart Rate 1: 75 bpm Height: 5' SpO2: 97% Weight: 114 lbs 06/09/2016 BMI: 22.7 Code: 08628-8 Heart Rate 1: 73 bpm Height: 5' SpO2: 97% Weight: 116 lbs 05/25/2016 Blood Pressure 1: 138/62 Code: 8480-6 BMI: 22.8 Code: 77512-6 Heart Rate 1: 76 bpm Height: 5' Weight: 117 lbs 05/17/2016 Blood Pressure 1: 116/70 Code: 8480-6 BMI: 22.8 Code: 19382-3 Heart Rate 1: 74 bpm Height: 5' SpO2: 94% Weight: 117 lbs 03/24/2016 Blood Pressure 1: 154/78 Code: 8480-6 BMI: 22.5 Code: 68613-3 Heart Rate 1: 78 bpm Height: 5' SpO2: 97% Weight: 115 lbs 02/02/2016 Blood Pressure 1: 132/70 Code: 8480-6 BMI: 22.3 Code: 06950-7 Heart Rate 1: 74 bpm Height: 5' SpO2: 94% Weight: 114 lbs 2016 Blood Pressure 1: 120/62 Code: 8480-6 BMI: 22.0 Code: 39553-6 Heart Rate 1: 68 bpm Height: 5' Weight: 112 lbs 8 oz 12/21/2015 Blood Pressure 1: 122/82 Code: 8480-6 BMI: 21.9 Code: 49644-4 Heart Rate 1: 83 bpm Height: 5' SpO2: 93% Temperature: 37.1 (C) / 98.7 (F) Weight: 112 lbs 11/03/2015 Blood Pressure 1: 122/72 Code: 8480-6 BMI: 22.4 Code: 07803-4 Heart Rate 1: 62 bpm Height: 5' Weight: 114 lbs 8 oz 10/19/2015 Blood Pressure 1: 138/62 Code: 8480-6 BMI: 21.1 Code: 93508-3 Heart Rate 1: 79 bpm Height: 5' Weight: 108 lbs 10/13/2015 Blood Pressure 1: 120/62 Code: 8480-6 BMI: 21.0 Code: 83058-3 Heart Rate 1: 76 bpm Height: 5' SpO2: 98% Weight: 108 lbs 09/29/2015 Blood Pressure 1: 130/70 Code: 8480-6 BMI: 20.2 Code: 74518-1 Heart Rate 1: 72 bpm Height: 5' Weight: 104 lbs 09/15/2015 Blood Pressure 1: 128/78 Code: 8480-6 BMI: 19.9 Code: 71728-2 Heart Rate 1: 72 bpm Height: 5' Weight: 102 lbs 8 oz 09/01/2015 Blood Pressure 1: 128/68 Code: 8480-6 BMI: 19.8 Code: 53253-8 Height: 5' Weight: 102 lbs 05/26/2015 Blood Pressure 1: 140/68 Code: 8480-6 BMI: 19.0 Code: 66596-8 Heart Rate 1: 70 bpm Height: 5' Weight: 98 lbs 05/21/2015 Blood Pressure 1: 140/78 Code: 8480-6 BMI: 19.2 Code: 92844-9 Heart Rate 1: 85 bpm Height: 5' SpO2: 95% Weight: 99 lbs 05/07/2015 Blood Pressure 1: 140/82 Code: 8480-6 BMI: 19.0 Code: 27761-5 Heart Rate 1: 76 bpm Height: 5' Weight: 98 lbs 03/23/2015 Blood Pressure 1: 142/60 Code: 8480-6 BMI: 18.6 Code: 89932-9 Heart Rate 1: 52 bpm Height: 5' Weight: 96 lbs 03/09/2015 Blood Pressure 1: 138/74 Code: 8480-6 BMI: 18.8 Code: 06665-0 Heart Rate 1: 60 bpm Height: 5' Weight: 97 lbs 10/30/2014 Blood Pressure 1: 112/82 Code: 8480-6 BMI: 19.0 Code: 14714-7 Heart Rate 1: 64 bpm Height: 5' Weight: 98 lbs 07/11/2014 Blood Pressure 1: 146/70 Code: 8480-6 BMI: 18.8 Code: 80702-3 Heart Rate 1: 68 bpm Height: 5' Weight: 97 lbs 05/20/2014 Blood Pressure 1: 142/76 Code: 8480-6 BMI: 18.6 Code: 95024-5 Heart Rate 1: 78 bpm Height: 5' Weight: 96 lbs 04/29/2014 Blood Pressure 1: 138/62 Code: 8480-6 BMI: 18.3 Code: 68916-0 Heart Rate 1: 80 bpm Height: 5' Weight: 94 lbs 8 oz 03/20/2014 Blood Pressure 1: 142/68 Code: 8480-6 BMI: 18.6 Code: 15895-1 Heart Rate 1: 96 bpm Height: 5' Weight: 96 lbs 03/05/2014 Blood Pressure 1: 122/72 Code: 8480-6 BMI: 18.8 Code: 40936-2 Heart Rate 1: 82 bpm Height: 5' SpO2: 97% Weight: 97 lbs 01/29/2014 Blood Pressure 1: 124/78 Code: 8480-6 BMI: 18.8 Code: 07347-8 Heart Rate 1: 60 bpm Height: 5' Weight: 97 lbs 01/14/2014 Blood Pressure 1: 120/58 Code: 8480-6 BMI: 19.2 Code: 52055-4 Heart Rate 1: 56 bpm Height: 5' Temperature: 36.9 (C) / 98.4 (F) Weight: 99 lbs 12/25/2013 Blood Pressure 1: 118/78 Code: 8480-6 BMI: 19.2 Code: 74765-7 Heart Rate 1: 68 bpm Height: 5' Weight: 99 lbs 11/27/2013 Blood Pressure 1: 102/68 Code: 8480-6 BMI: 19.4 Code: 32108-6 Heart Rate 1: 56 bpm Height: 5' Weight: 100 lbs 09/12/2013 Blood Pressure 1: 142/62 Code: 8480-6 BMI: 19.7 Code: 43015-9 Heart Rate 1: 72 bpm Height: 5'1" Weight: 104 lbs 08/15/2013 Blood Pressure 1: 152/92 Code: 8480-6 Heart Rate 1: 96 bpm Weight: 102 lbs 08/01/2013 Blood Pressure 1: 122/68 Code: 8480-6 BMI: 19.1 Code: 71933-8 Heart Rate 1: 68 bpm Height: 5'1" Weight: 101 lbs 07/01/2013 Blood Pressure 1: 130/72 Code: 8480-6 BMI: 19.5 Code: 96137-3 Heart Rate 1: 80 bpm Height: 5'1" Temperature: 36.1 (C) / 97.0 (F) Weight: 103 lbs 05/29/2013 Blood Pressure 1: 126/72 Code: 8480-6 BMI: 19.3 Code: 71702-8 Heart Rate 1: 80 bpm Height: 5'1" Weight: 102 lbs 05/15/2013 Blood Pressure 1: 156/74 Code: 8480-6 BMI: 19.3 Code: 69757-3 Heart Rate 1: 88 bpm Height: 5'1" Weight: 102 lbs 04/23/2013 Blood Pressure 1: 140/82 Code: 8480-6 BMI: 19.3 Code: 19884-0 Heart Rate 1: 72 bpm Height: 5'1" Weight: 102 lbs 03/21/2013 Blood Pressure 1: 142/74 Code: 8480-6 Heart Rate 1: 92 bpm Weight: 103 lbs 01/16/2013 Blood Pressure 1: 120/56 Code: 8480-6 BMI: 20.0 Code: 86948-6 Heart Rate 1: 72 bpm Height: 5'1" Weight: 106 lbs 12/19/2012 Blood Pressure 1: 118/66 Code: 8480-6 Heart Rate 1: 84 bpm Weight: 12/10/2012 Blood Pressure 1: 132/62 Code: 8480-6 Heart Rate 1: 64 bpm Weight: 103 lbs 10/30/2012 Blood Pressure 1: 122/66 Code: 8480-6 BMI: 19.9 Code: 48580-5 Heart Rate 1: 61 bpm Height: 5'1" [...] 1: 118/72 Code: 8480-6 BMI: 21.0 Code: 79582-0 Heart Rate 1: 66 bpm Height: 5'1" Respiratory Rate: 16 bpm Weight: 111 lbs 2012 Blood Pressure 1: 122/62 Code: 8480-6 Heart Rate 1: 68 bpm Weight: 110 lbs 12/01/2011 Blood Pressure 1: 150/60 Code: 8480-6 BMI: 20.8 Code: 48835-2 Heart Rate 1: 60 bpm Height: 5'1" Respiratory Rate: 16 bpm Weight: 110 lbs 11/23/2011 Blood Pressure 1: 170/68 Code: 8480-6 BMI: 21.1 Code: 22073-0 Heart Rate 1: 64 bpm Height: 5'1" Temperature: 36.3 (C) / 97.3 (F) Weight: 111 lbs 8 oz 10/17/2011 Blood Pressure 1: 148/62 Code: 8480-6 Heart Rate 1: 74 bpm 10/03/2011 Blood Pressure 1: 102/48 Code: 8480-6 BMI: 21.4 Code: 48643-8 Heart Rate 1: 76 bpm Height: 5'1" Respiratory Rate: 16 bpm Weight: 113 lbs 08/08/2011 Blood Pressure 1: 128/60 Code: 8480-6 Heart Rate 1: 80 bpm Respiratory Rate: 16 bpm Weight: 113 lbs 05/09/2011 Blood Pressure 1: 130/62 Code: 8480-6 BMI: 20.7 Code: 08170-4 Heart Rate 1: 64 bpm Height: 5'1" Respiratory Rate: 16 bpm Weight: 109 lbs 8 oz 03/29/2011 Blood Pressure 1: 120/62 Code: 8480-6 BMI: 20.2 Code: 54248-3 Heart Rate 1: 66 bpm Height: 5'1" Respiratory Rate: 12 bpm Weight: 107 lbs 03/15/2011 Blood Pressure 1: 120/64 Code: 8480-6 BMI: 19.8 Code: 75443-2 Heart Rate 1: 76 bpm Height: 5'1" [...] contacts 03/20/2014 sat next to neighbor in [place] who had tonsillitis sore throat Pertinent Findings [...] data Encounters Encounter Performer Location Codes Date [id number]) 33304 EST. PATIENT, LEVEL IV Diagnosis: Essential (primary) hypertension[ICD10: I10] Diagnosis: Atrophy of thyroid (acquired)[ICD10: E03.4] Diagnosis: Gastro-esophageal reflux disease without esophagitis[ICD10: K21.9] Karma Bahena MD, [facility] CPT-4: 48366 06/04/2018 ([id number]) 32192 EST. 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 PATIENT, LEVEL IV Diagnosis: Essential (primary) hypertension[ICD10: I10] Diagnosis: Chronic atrial fibrillation[ICD10: I48.2] Diagnosis: Allergic rhinitis due to pollen[ICD10: J30.1] Diagnosis: Cough[ICD10: R05] Karma Bahena MD, [facility] CPT-4: 34522 12/14/2017 70030 EST. PATIENT, LEVEL IV Diagnosis: Other allergic rhinitis[ICD10: J30.89] Katharine Bahena MD, [facility] CPT- 4: 53174 12/07/2017 ([id number]) 45732 EST. 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 PATIENT, LEVEL IV Diagnosis: Essential (primary) hypertension[ICD10: I10] Diagnosis: Localized edema[ICD10: R60.0] Diagnosis: Encounter for immunization[ICD10: Z23] Diagnosis: Age-related osteoporosis without current pathological fracture[ICD10: M81.0] Karma Bahena MD [facility] CPT-4: 21254 03/27/2017 ([id number]) 65530 EST. PATIENT, LEVEL IV Diagnosis: Essential (primary) hypertension[ICD10: I10] Diagnosis: Chronic atrial fibrillation[ICD10: I48.2] Diagnosis: Dysphonia[ICD10: R49.0] Karma Bahena MD, [facility] CPT-4: 54232 01/19/2017 ([id number]) Miscellaneous no charge Diagnosis: Cough[ICD10: R05] Diagnosis: Acute upper respiratory infection, unspecified[ICD10: J06.9] Laura Bahena MD, [facility] CPT-4: 17057 11/29/2016 65677 EST. PATIENT, LEVEL III Diagnosis: Cough[ICD10: R05] Diagnosis: Acute laryngopharyngitis[ICD10: J06.0] Katharine Bahena MD, [facility] CPT- 4: 06084 11/23/2016 ([id number]) 87314 EST. PATIENT, LEVEL III Diagnosis: Acute laryngopharyngitis[ICD10: J06.0] Laura Bahena MD [facility] CPT-4: 68839 11/21/2016 ([id number]) Miscellaneous no charge Diagnosis: Laceration without foreign body of right forearm, subsequent encounter[ICD10: S51.811D] Karma Bahena MD [facility] CPT-4: 97601 11/17/2016 ([id number]) Miscellaneous no charge Diagnosis: Laceration without foreign body of right forearm, subsequent encounter[ICD10: S51.811D] Karma Bahena MD [facility] CPT-4: 50995 11/14/2016 ([id number]) Miscellaneous no charge Diagnosis: Laceration without foreign body of right forearm, subsequent encounter[ICD10: S51.811D] Karma Bahena MD, [facility] CPT-4: 91480 11/11/2016 ([id number]) Miscellaneous no charge Diagnosis: Laceration without foreign body of right forearm, subsequent encounter[ICD10: S51.811D] Karma Bahena MD [facility] CPT-4: 31155 11/10/2016 ([id number]) 61254 EST. PATIENT, LEVEL II Diagnosis: Laceration without foreign body of right forearm, subsequent encounter[ICD10: S51.811D] Karma Bahena MD [facility] CPT-4: 52591 11/08/2016 ([id number]) 64957 EST. PATIENT, LEVEL IV Diagnosis: Atrophy of thyroid (acquired)[ICD10: E03.4] Diagnosis: Chronic atrial fibrillation[ICD10: I48.2] Diagnosis: Laceration without foreign body of right forearm, subsequent encounter[ICD10: S51.811D] Karma Bahena MD [facility] CPT-4: 01246 11/02/2016 ([id number]) 81513 EST. PATIENT, LEVEL III Diagnosis: Laceration without foreign body of right forearm, initial encounter[ICD10: S51.811A] Laura Bahena MD [facility] CPT-4: 64091 10/27/2016 ([id number]) 84832 EST. PATIENT, LEVEL IV Diagnosis: Essential (primary) hypertension[ICD10: I10] Diagnosis: Chronic atrial fibrillation[ICD10: I48.2] Karma Bahena MD [facility] CPT-4: 60977 08/31/2016 ([id number]) 16012 EST. PATIENT, LEVEL IV Diagnosis: Localized edema[ICD10: R60.0] Diagnosis: Essential (primary) hypertension[ICD10: I10] Diagnosis: Abdominal distension (gaseous)[ICD10: R14.0] Karma Bahena MD [facility] CPT-4: 17824 07/27/2016 ([id number]) 99430 EST. PATIENT, LEVEL IV Diagnosis: Essential (primary) hypertension[ICD10: I10] Diagnosis: Chronic atrial fibrillation[ICD10: I48.2] Diagnosis: Localized edema[ICD10: R60.0] Karma Bahena MD, [facility] CPT-4: 37228 06/23/2016 ([id number]) 09613 EST. PATIENT, LEVEL III Diagnosis: Localized edema[ICD10: R60.0] Karma Bahena MD [facility] CPT-4: 59695 06/09/2016 ([id number]) 96501 EST. PATIENT, LEVEL III Diagnosis: Irritable bowel syndrome without diarrhea[ICD10: K58.9] Diagnosis: Pruritus ani[ICD10: L29.0] Karma Bahena MD [facility] CPT-4: 19484 05/25/2016 ([id number]) 17910 EST. PATIENT, LEVEL III Diagnosis: Abdominal distension (gaseous)[ICD10: R14.0] Diagnosis: Encounter for screening mammogram for malignant neoplasm of breast[ICD10: Z12.31] Karma Bahena MD [facility] CPT-4: 94416 05/17/2016 ([id number]) 91857 EST. PATIENT, LEVEL IV Diagnosis: Essential (primary) hypertension[ICD10: I10] Diagnosis: First degree hemorrhoids[ICD10: K64.0] Diagnosis: Encounter for immunization[ICD10: Z23] Karma Bahena MD [facility] CPT-4: 01918 03/24/2016 ([id number]) 08481 EST. PATIENT, LEVEL III Diagnosis: Epidermal cyst[ICD10: L72.0] Diagnosis: Essential (primary) hypertension[ICD10: I10] Diagnosis: Chronic atrial fibrillation[ICD10: I48.2] Diagnosis: Other assisted (current) drug therapy[ICD10: Z79.899] Karma Bahena MD [facility] CPT-4: 90593 02/02/2016 ([id number]) 89149 EST. PATIENT, LEVEL III Diagnosis: Acute anal fissure[ICD10: K60.0] Karma Bahena MD [facility] CPT-4: 45103 2016 ([id number]) 69697 EST. PATIENT, LEVEL III Diagnosis: Allergic rhinitis due to pollen[ICD10: J30.1] Diagnosis: Acute upper respiratory infection, unspecified[ICD10: J06.9] Laura Bahena MD [facility] CPT-4: 12087 12/21/2015 ([id number]) 58812 EST. PATIENT, LEVEL III Diagnosis: Essential (primary) hypertension[ICD10: I10] Diagnosis: Chronic atrial fibrillation[ICD10: I48.2] Karma Bahena MD, [facility] CPT-4: 45034 11/03/2015 ([id number]) Miscellaneous no charge Diagnosis: Impacted cerumen, right ear[ICD10: H61.21] Katharine Bahena MD [facility] CPT-4: 64837 10/19/2015 67041 EST. PATIENT, LEVEL IV Diagnosis: Impacted cerumen, right ear[ICD10: H61.21] Diagnosis: Other allergic rhinitis[ICD10: J30.89] Katharine Bahena MD, [facility] CPT- 4: 99508 10/13/2015 ([id number]) 59315 EST. PATIENT, LEVEL IV Diagnosis: Essential (primary) hypertension[ICD10: I10] Diagnosis: Chronic atrial fibrillation[ICD10: I48.2] Diagnosis: Urge incontinence[ICD10: N39.41] Diagnosis: Age-related osteoporosis without current pathological fracture[ICD10: M81.0] Karma Bahena MD, [facility] CPT-4: 01526 09/29/2015 ([id number]) 70700 EST. PATIENT, LEVEL IV Diagnosis: Essential (primary) hypertension[ICD10: I10] Diagnosis: Chronic atrial fibrillation[ICD10: I48.2] Diagnosis: Irritable bowel syndrome without diarrhea[ICD10: K58.9] Diagnosis: Unspecified hemorrhoids[ICD10: K64.9] Karma Bahena MD, [facility] CPT-4: 75101 09/15/2015 ([id number]) 01939 EST. 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 PATIENT, LEVEL III Diagnosis: Hematuria, unspecified[ICD10: R31.9] Diagnosis: Other urethritis[ICD10: N34.2] Diagnosis: Other specified noninflammatory disorders of vagina[ICD10: N89.8] Karma Bahena MD [facility] CPT-4: 22318 05/26/2015 96914 EST. PATIENT, LEVEL IV Diagnosis: Gout, unspecified[ICD10: M10.9] Karma Bahena MD [facility] CPT-4: 08708 05/21/2015 ([id number]) 73282 EST. PATIENT, LEVEL IV Diagnosis: Chronic atrial fibrillation[ICD10: I48.2] Diagnosis: Irritable bowel syndrome without diarrhea[ICD10: K58.9] Diagnosis: Cystocele, unspecified[ICD10: N81.10] Diagnosis: Urge incontinence[ICD10: N39.41] Diagnosis: Fecal smearing[ICD10: R15.1] Diagnosis: Hypothyroidism, unspecified[ICD10: E03.9] Karma Bahena MD, [facility] CPT-4: 93810 05/07/2015 ([id number]) 06994 EST. PATIENT, LEVEL III Diagnosis: Atrial fibrillation[ICD9: 427.31] Diagnosis: Bloating[ICD9: 787.3] Karma Bahena MD, [facility] CPT-4: 62605 03/23/2015 ([id number]) 23958 EST. PATIENT, LEVEL IV Diagnosis: Abdominal pain[ICD9: 789.00] Diagnosis: Atrial fibrillation[ICD9: 427.31] Diagnosis: ENCNTR LONG-ANTICOAG USE[ICD9: V58.61] Karma Bahena MD [facility] CPT-4: 73275 03/09/2015 ([id number]) 78506 EST. PATIENT, LEVEL IV Diagnosis: HEMATURIA NOS[ICD9: 599.70] Diagnosis: Atrial fibrillation[ICD9: 427.31] Diagnosis: HYPOTHYROIDISM[ICD9: 244.9] Karma Bahena MD, [facility] CPT-4: 35381 10/30/2014 ([id number]) 59791 EST. PATIENT, LEVEL IV Diagnosis: Atrial fibrillation[ICD9: 427.31] Diagnosis: ALLERGIC RHINITIS[ICD9: 477.9] Diagnosis: Need for pneumococcal vaccine[ICD9: V03.82] Diagnosis: Osteoarthritis[ICD9: 715.90] Diagnosis: Osteoporosis[ICD9: 733.00] Karma Bahena MD, [facility] CPT-4: 82184 07/11/2014 ([id number]) 18336 EST. PATIENT, LEVEL III Diagnosis: Urge incontinence[ICD9: 788.31] Diagnosis: Dysuria[ICD9: 788.1] Karma Bahena MD [facility] CPT-4: 64659 05/20/2014 ([id number]) 66528 EST. PATIENT, LEVEL IV Diagnosis: Atrial fibrillation[ICD9: 427.31] Diagnosis: Hematuria[ICD9: 599.70] Diagnosis: Dysuria[ICD9: 788.1] Diagnosis: ESSENTIAL HYPERTENSION[ICD9: 401.9] Karma Bahena MD [facility] CPT- 4: 97081 04/29/2014 ([id number]) 25468 EST. PATIENT, LEVEL IV Diagnosis: ESSENTIAL HYPERTENSION[ICD9: 401.9] Diagnosis: ALLERGIC RHINITIS[ICD9: 477.9] Karma Bahena MD [facility] CPT-4: 45361 03/20/2014 ([id number]) 06055 EST. PATIENT, LEVEL IV Diagnosis: ESSENTIAL HYPERTENSION[ICD9: 401.9] Diagnosis: ATRIAL FIBRILLATION[ICD9: 427.31] Diagnosis: Irritable bowel[ICD9: 564.1] Karma Bahena MD, [facility] CPT-4: 18725 03/05/2014 ([id number]) 67409 EST. PATIENT, LEVEL IV Diagnosis: Esophageal reflux[ICD9: 530.81] Diagnosis: DIARRHEA[ICD9: 787.91] Diagnosis: ABDOM PAIN NOS SITE[ICD9: 789.00] Karma Bahena MD [facility] CPT- 4: 68325 01/29/2014 ([id number]) 55424 EST. PATIENT, LEVEL III Diagnosis: Irritable bowel[ICD9: 564.1] Diagnosis: DIARRHEA[ICD9: 787.91] Laura Bahena MD, [facility] CPT-4: 19838 01/14/2014 ([id number]) 02502 EST. PATIENT, LEVEL IV Diagnosis: ESSENTIAL HYPERTENSION[ICD9: 401.9] Diagnosis: ATRIAL FIBRILLATION[ICD9: 427.31] Diagnosis: URGE INCONTINENCE[ICD9: 788.31] Diagnosis: MALAISE AND FATIGUE[ICD9: 780.79] Diagnosis: Dyspnea[ICD9: 786.09] Karma Bahena MD [facility] CPT-4: 75497 12/25/2013 ([id number]) 36863 EST. PATIENT, LEVEL IV Diagnosis: ESSENTIAL HYPERTENSION[SNOMED: 47123253] Diagnosis: ATRIAL FIBRILLATION[ICD9: 427.31] Diagnosis: Abdominal pain[ICD9: 789.00] Diagnosis: ESOPHAGEAL REFLUX[ICD9: 530.81] Karma Bahena MD [facility] CPT-4: 13279 11/27/2013 ([id number]) 19777 EST. PATIENT, LEVEL IV Diagnosis: ESSENTIAL HYPERTENSION[SNOMED: 62383102] Diagnosis: ATRIAL FIBRILLATION[ICD9: 427.31] Diagnosis: Chronic osteoarthritis[ICD9: 715.90] Karma Bahena MD [facility] CPT- 4: 43382 09/12/2013 ([id number]) 43622 EST. PATIENT, LEVEL III Diagnosis: ESSENTIAL HYPERTENSION[SNOMED: 03938688] Diagnosis: Bruising[ICD9: 924.9] Diagnosis: ENCNTR LONG-RX USE NEC[ICD9: V58.69] Karma Bahena MD [facility] CPT- 4: 07785 08/15/2013 ([id number]) 64604 EST. PATIENT, LEVEL IV Diagnosis: ESSENTIAL HYPERTENSION[SNOMED: 55064820] Diagnosis: Hematuria[ICD9: 599.70] Diagnosis: Dysuria[ICD9: 788.1] Karma Bahena MD [facility] CPT-4: 77116 08/01/2013 ([id number]) 50525 EST. PATIENT, LEVEL III Diagnosis: UTI[ICD9: 599.0] Diagnosis: Hematuria[ICD9: 599.70] Laura Bahena MD [facility] CPT-4: 26651 07/01/2013 ([id number]) 00761 EST. PATIENT, LEVEL III Diagnosis: ATRIAL FIBRILLATION[ICD9: 427.31] Diagnosis: ESSENTIAL HYPERTENSION[SNOMED: 75544400] Karma Bahena MD [facility] CPT-4: 93860 05/29/2013 ([id number]) 29214 EST. PATIENT, LEVEL IV Diagnosis: Atrial fibrillation[ICD9: 427.31] Diagnosis: Encounter for monitoring digoxin therapy[ICD9: V58.83] Diagnosis: ESSENTIAL HYPERTENSION[SNOMED: 04369804] Karma Bahena MD, [facility] CPT-4: 31172 05/15/2013 ([id number]) 27603 EST. PATIENT, LEVEL IV Diagnosis: ESSENTIAL HYPERTENSION[SNOMED: 32566440] Diagnosis: ATRIAL FIBRILLATION[ICD9: 427.31] Diagnosis: PALPITATIONS[ICD9: 785.1] Diagnosis: Dizziness and giddiness[ICD9: 780.4] Karma Bahena MD, [facility] CPT- 4: 64214 04/23/2013 ([id number]) 69190 EST. PATIENT, LEVEL III Diagnosis: OTHER CONSTIPATION[ICD9: 564.09] Diagnosis: ABDOM PAIN NOS SITE[ICD9: 789.00] Laura Bahena MD, [facility] CPT- 4: 46441 03/21/2013 ([id number]) 24214 EST. PATIENT, LEVEL IV Diagnosis: ESSENTIAL HYPERTENSION[SNOMED: 16854897] Diagnosis: Atrial fibrillation[ICD9: 427.31] Karma Bahena MD, [facility] CPT- 4: 86613 01/16/2013 ([id number]) Miscellaneous no charge Diagnosis: CELLULITIS OF HAND[ICD9: 682.4] Karma Bahena MD [facility] CPT-4: 29445 12/19/2012 ([id number]) Miscellaneous no charge Diagnosis: ENCOUNTER FOR THERAPEUTIC DRUG MONITORING[ICD9: V58.83] Diagnosis: CELLULITIS OF HAND[ICD9: 682.4] Karma Bahena MD, [facility] CPT-4: 62776 12/14/2012 Miscellaneous no charge Diagnosis: CELLULITIS OF HAND[ICD9: 682.4] [facility] CPT-4: 13606 12/12/2012 61343 EST. PATIENT, LEVEL II Diagnosis: CELLULITIS OF HAND[ICD9: 682.4] Diagnosis: ENCNTR LONG-RX USE NEC[ICD9: V58.69] Diagnosis: LONG-TERM USE ANTICOAGUL[ICD9: V58.61] Karma Bahena MD [facility] CPT-4: 37644 12/11/2012 ([id number]) 39084 EST. PATIENT, LEVEL III Diagnosis: CELLULITIS OF HAND[ICD9: 682.4] PARVEEN Freitas MD CPT-4: 26215 12/10/2012 ([id number]) 72590 EST. PATIENT, LEVEL IV Diagnosis: Elevated digoxin level[ICD9: 796.0] Diagnosis: ATRIAL FIBRILLATION[ICD9: 427.31] Diagnosis: Inflammatory arthritis[ICD9: 714.9] Karma Bahena MD [facility] CPT- 4: 08860 10/30/2012 ([id number]) 97548 EST. PATIENT, LEVEL IV Diagnosis: Atrial fibrillation[ICD9: 427.31] Diagnosis: Anticoagulant long-term use[ICD9: V58.61] Diagnosis: ESSENTIAL HYPERTENSION[SNOMED: 66500846] Karma Bahena MD [facility] CPT-4: 12731 08/08/2012 ([id number]) 58536 EST. PATIENT, LEVEL IV Diagnosis: ABDOM PAIN NOS SITE[ICD9: 789.00] Diagnosis: Constipation - functional[ICD9: 564.09] Diagnosis: EDEMA[ICD9: 782.3] Diagnosis: ATRIAL FIBRILLATION[ICD9: 427.31] Karma Bahena MD [facility] CPT- 4: 72084 07/11/2012 ([id number]) 67768 EST. PATIENT, LEVEL III Diagnosis: Cystocele[ICD9: 618.01] Diagnosis: Rectocele[ICD9: 618.04] Karma Bahena MD [facility] CPT-4: 42061 05/08/2012 ([id number]) 07670 EST. 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 PATIENT, LEVEL IV Diagnosis: ATRIAL FIBRILLATION[ICD9: 427.31] Diagnosis: URGE INCONTINENCE[ICD9: 788.31] Diagnosis: MALAISE AND FATIGUE[ICD9: 780.79] Diagnosis: Dyspnea[ICD9: 786.09] Karma Bahena MD, [facility] CPT-4: 43626 02/20/2012 23691 EST. PATIENT, LEVEL IV Diagnosis: Hematuria[ICD9: 599.70] Diagnosis: Vaginal yeast infection[ICD9: 112.1] Diagnosis: ATRIAL FIBRILLATION[ICD9: 427.31] Laura Bahena MD [facility] CPT- 4: 12147 02/13/2012 ([id number]) 85477 EST. PATIENT, LEVEL IV Diagnosis: Atrial fibrillation[ICD9: 427.31] Diagnosis: Anticoagulation goal of INR 2 to 3[ICD9: V58.83] Diagnosis: Urinary incontinence, urge[ICD9: 788.31] Diagnosis: ESSENTIAL HYPERTENSION[SNOMED: 93842551] Karma Bahena MD [facility] CPT-4: 02207 02/01/2012 ([id number]) 50781 EST. PATIENT, LEVEL IV Diagnosis: Atrial fibrillation[ICD9: 427.31] Diagnosis: Anticoagulant long-term use[ICD9: V58.61] Diagnosis: ESSENTIAL HYPERTENSION[SNOMED: 82399159] Karma Bahena MD, [facility] CPT-4: 58020 2012 21302 EST. PATIENT, LEVEL IV Diagnosis: UTI[ICD9: 599.0] Diagnosis: ESSENTIAL HYPERTENSION[SNOMED: 99549865] Diagnosis: MALAISE AND FATIGUE[ICD9: 780.79] Diagnosis: Esophageal reflux[ICD9: 530.81] Karma Bahena MD [facility] CPT-4: 48488 12/01/2011 ([id number]) 31747 EST. PATIENT, LEVEL IV Diagnosis: UTI (urinary tract infection)[ICD9: 599.0] Diagnosis: ESSENTIAL HYPERTENSION[SNOMED: 30357683] Diagnosis: URGE INCONTINENCE[ICD9: 788.31] Karma Bahena MD, [facility] CPT-4: 40705 11/23/2011 ([id number]) 76677 EST. PATIENT, LEVEL IV Diagnosis: ESSENTIAL HYPERTENSION[SNOMED: 16966348] Diagnosis: IMPACTED CERUMEN[ICD9: 380.4] Diagnosis: MALAISE AND FATIGUE[ICD9: 780.79] Diagnosis: EDEMA[ICD9: 782.3] Karma Bahena MD, [facility] CPT-4: 27934 10/03/2011 85822 EST. PATIENT, LEVEL IV Diagnosis: ESSENTIAL HYPERTENSION[SNOMED: 93037289] Diagnosis: Generalized osteoarthritis[ICD9: 715.09] Diagnosis: OSTEOPOROSIS[ICD9: 733.00] Karma Bahena MD, [facility] CPT-4: 02036 08/08/2011 46438 EST. PATIENT, LEVEL IV Diagnosis: Muscle cramp[ICD9: 729.82] Diagnosis: Torticollis[ICD9: 723.5] Diagnosis: Rash[ICD9: 782.1] Karma Bahena MD, [facility] CPT-4: 62954 05/09/2011 99667 EST. PATIENT, LEVEL IV Diagnosis: Leg cramps, sleep related[ICD9: 327.52] Diagnosis: Underweight[ICD9: 783.22] Karma Bahena MD, [facility] CPT-4: 18833 03/29/2011 52094 EST. PATIENT, LEVEL IV Diagnosis: UTI[ICD9: 599.0] Diagnosis: Urge incontinence[ICD9: 788.31] Diagnosis: Loss of weight[ICD9: 783.21] Diagnosis: Palpitations[ICD9: 785.1] Diagnosis: Peripheral neuropathy, idiopathic[ICD9: 356.9] Karma Bahena MD, [facility] CPT-4: 32005 03/15/2011 Plan of Care Planned Activity Notes [...] improving. 06/04/2018 Appointment: Karma Bahena WPtel: [phone] [facility] (15 min) Moderate 06/04/2018 Patient Education: Patient Medication Summary Completed 06/04/2018 Appointment: Karma Bahena WPtel: [phone] [facility] (15 min) Moderate 03/14/2018 Visit Plan: [...] q 3 months or q 6 m [facility] [place] based on previous levels of control. 01/31/2018 Appointment: Katharine Dai WPtel: [phone] [facility] [place] [address] - Annual Wellness Visit 01/31/2018 Patient Education: [...] allergy spray. 12/14/2017 Appointment: Karma Bahena WPtel: [address] [place], [place] [id number] (15 min) Moderate 12/14/2017 Patient Education: Patient [...] allergy spray. 12/07/2017 Appointment: Katharine Dai WPtel: [facility] (15 min) Moderate 12/07/2017 Patient Education: [...] of control. 11/14/2017 Appointment: Karma Bahena WPtel: [facility]9 [facility] (15 min) Moderate 11/14/2017 Patient Education: [...] 03/27/2017 Appointment: Karma Bahena WPtel: [phone] [facility] (15 min) Moderate 03/27/2017 Patient Education: Patient [...] care surrogate. 01/23/2017 Appointment: Katharine Dai WPtel: [facility]5 [facility] [facility] - Annual Wellness Visit 01/23/2017 [...] becoming uncontrolled. 01/19/2017 Appointment: Karma Bahena WPtel: [address] [place], [place] [address] (15 min) Moderate 01/19/2017 Patient Education: Patient Medication Summary Completed 01/19/2017 Care Plan: Referral Order SNOMED-CT : [id number] Pending 01/19/2017 Appointment: Kar[facility]hen[facility]Ptel[facility] ([facility] min) Moderate 01/04/2017 Appointment: Karma Bahena WPtel: [address] [place], [place] [phone] (15 min) Moderate 12/28/2016 Visit Plan: [id number] zpack-call if symptoms do not resolve or if any worse. Patient verbalized understanding of plan. 11/29/2016 Appointment: Laura Colin WPtel: [address] [place], [place] [phone] (15 min) Moderate 11/29/2016 Patient Education: Patient [...] patient's pharmacy. 11/23/2016 Appointment: Katharine Dai WPtel: [address] [place] [address] (15 min) Moderate 11/23/2016 Patient Education: Patient Medication Summary Completed 11/23/2016 Visit Plan: Pharyngitis-Discussed natural and expected course of this diagnosis and need to alert me if symptoms do not follow expected course, or if any worse. Recommended salt water gargles as needed for pain. Ty lenol/motrin as needed for fever/discomfort. 11/21/2016 Appointment: Laura Colin WPtel: [address] [place], [place] [phone] (15 min) Moderate 11/21/2016 Patient Education: Patient [...] symptoms. 11/08/2016 Appointment: [facility] [id number] [id number] [place] (10 min) Simple 11/08/2016 Patient [...] bactroban, etc. 11/02/2016 Appointment: Karma Bahena [facility]Ptel[facility] (15 min) Moderate 11/02/2016 Appointment: Nurse Visit 11/02/2016 Patient Education: Patient Medication Summary Completed 11/02/2016 Appointment: Nurse Visit 10/31/2016 Visit Plan: Laceration-right forearm- Pt was instructed to keep the wound clean, cleanse with sterile saline, use bactroban ointment, call if redness, pustular drainage, or any other acute concerns. Follow up Monday for dressing changes. 10/27/2016 Appointment: [facility] Colin [facility]el[phone] [place] (30 min) Complex 10/27/2016 Patient Education: [...] in symptoms. 08/31/2016 Appointment: Karma Bahena WPtel[facility] (15 min) Moderate 08/31/2016 Patient Education: [...] your swelling. 07/27/2016 Appointment: Karma Bahena WPtel: [facility] (15 min) Moderate 07/27/2016 Patient Education: Patient [...] of lasix 06/23/2016 Appointment: Karma Bahena WPtel: [facility] [facility] [place] (15 min) Moderate 06/23/2016 Patient Education: Patient Medication Summary Completed 06/23/2016 Patient Education: Hypertension Completed 06/23/2016 Visit Plan: Edema - with Dyspnea - RX for laxis and compression socks - pt to call if not improving. 06/09/2016 Appointment: Kamra Bahena WPtel: [phone] [facility] (15 min) Moderate 06/09/2016 Patient Education: Patient Medication Summary Completed 06/09/2016 Visit Plan: Abdominal pain and rectal itching - recommended pt to use betamethasone on vaginal/rectal region, monitor symptoms call if not improving. Continue with beano and simethicone 05/25/2016 Appointment: Karma Bahena WPtel: [address] [place], [place] [phone] (15 min) Moderate 05/25/2016 Patient Education: Patient Medication Summary Completed 05/25/2016 Care Plan: [facility]AP[id number] Pending 05/20/2016 Visit Plan: Abdominal distension - use simethicone four times daily - after meals - if it does not help - in the next two weeks - call the office and we will do a ct scan of the abdomen and pelvis 05/17/2016 Appointment: Karma Bahena WPtel: [address] [place], [place] [phone] (15 min) Moderate 05/17/2016 Patient Education: Patient [...] steroid ointment 03/24/2016 Appointment: Karma Bahena WPtel: [facility] (30 min) Complex 03/24/2016 Patient Education: [...] the nasal steroid allergy spray. 12/21/2015 Appointment: Luara Colin WPtel: [facility] (30 min) Complex 12/21/2015 Patient Education: Patient [...] becoming uncontrolled. 11/03/2015 Appointment: Karma Bahena WPtel: [facility]7 [facility] (15 min) Moderate 11/03/2015 Patient Education: [...] had left kidney and ureter removed in [place]-doing well 09/01/2015 Appointment: (30 min) Complex 09/01/2015 Patient Education: Patient Medication Summary Completed 09/01/2015 Patient Education: Hypertension Completed 09/01/2015 Appointment: Karma Bahena WPtel: [address] [place], [place] [id number] (15 min) Moderate 07/13/2015 Visit Plan: Hematuria/Urethritis [...] 05/13/2015 Care Plan: Referral Order SNOMED-CT : [id number] Ordered 05/08/2015 Visit Plan: Atrial Fibrillation - [...] Dr. Collins. 05/07/2015 Appointment: Karma Bahena [facility]Ptel: [phone] [facility] (15 min) Moderate 05/07/2015 Patient Education: [...] uncontrolled. 10/30/2014 Appointment: Karma Bahena WPtel: [phone] [facility] Follow up 10/30/2014 Patient Education: Patient Medication Summary Completed 10/30/2014 Appointment: Karma Bahena WPtel: [address] [place], [place] [phone] Follow up 07/22/2014 Visit Plan: Atrial Fibrillation [...] hospital. 07/11/2014 Appointment: Karma Bahena WPtel: [address] [place], [place] [phone] Sick 07/11/2014 Patient Education: Patient Medication Summary Completed 07/11/2014 Appointment: Karma Bahena WPtel: [address] [place], [place] [phone] Follow up 07/07/2014 Visit Plan: Urinary incontinence and recurrent UTI's - doctor will refer to Dr. Joel Collins - for nonsurgical intervention for potential electrical stimulation/training of pelvic floor muscles - for strengthening - can start on the treatment when you get back from [place] - will also ask him about doing a cystoscopy to look into bladder to see if there is any bladder irritation. keep using the Premarin - use about 25Cent size of cream onto finger to apply to urethra and do this three times weekly. 05/20/2014 Appointment: Karma Bahena WPtel: [address] [place], [place] [phone] Follow up 05/20/2014 Patient Education: Patient Medication Summary Completed 05/20/2014 Appointment: Kar[facility] Bahena [facility]Ptel: [phone] [facility] Lab Draw 05/14/2014 Patient Education: Patient Medication [...] vesicare. 04/29/2014 Appointment: Karma Bahena [facility]Ptel: [phone] [facility] Follow up 04/29/2014 Patient Education: Patient [...] spray. 03/20/2014 Appointment: Karma Bahena WPtel: [phone] [facility] [facility] 03/20/2014 Patient Education: Patient Medication Summary [...] becoming uncontrolled. 03/05/2014 Appointment: Karma Bahena WPtel: [address] [place], [place] [phone] Follow up 03/05/2014 Patient Education: Patient Medication [...] with report. 01/29/2014 Appointment: Karma Bahena WPtel: [facility]0 [facility] Follow up 01/29/2014 Patient Education: Patient [...] exposure,and dyspnea on exertion - will ask [place] Patient do an overnight oxygen study on [place] as she has cardiac history, weight loss, and nocturnal hypoxemia may be a part of her weight loss and fatigue. 12/25/2013 Appointment: Karma Bahena [facility]Ptel: [phone] [facility] Follow up 12/25/2013 Patient Education: Patient Medication [...] daily. 11/27/2013 Appointment: Karma Bahena WPtel: [phone] [facility] Follow up 11/27/2013 Patient Education: Patient [...] heart rate. Osteoarthritis - send pt to [facility] physical therapy for [facility] osteoarhtritis program for strengthening and pain reduction. Hypertension - well controlled - continue with current medications, continue with no added salt diet. Pt has been encouraged to exercise daily. The pt has been advised to call the office if there are any acute concerns about change in blood pressure readings at home. 09/12/2013 Appointment: Karma Bahena WPtel: [phone] [facility] Follow up 09/12/2013 Patient Education: Patient Medication Summary Completed 09/12/2013 Patient Education: Hypertension Completed 09/12/2013 Appointment: Karma Bahena WPtel: [phone] [facility] Follow up 08/21/2013 Visit Plan: Hypertension - [...] coumadin-check PT/INR 08/15/2013 Appointment: Karma Bahena WPtel: [phone] [facility] Follow up 08/15/2013 Patient Education: Patient Medication [...] of urethra. 08/01/2013 Appointment: Karma Bahena WPtel: [facility] [place] Follow up 08/01/2013 Patient Education: Patient Medication Summary Completed 08/01/2013 Patient Education: Hypertension Completed 08/01/2013 Appointment: Laura Colin WPtel: [facility]5 [phone] [place] Lab Draw 07/29/2013 Patient Education: Patient Medication Summary Completed 07/29/2013 Visit Plan: Osteoporosis-prolia on june 25-patient to let Dr Hansen know 07/01/2013 Appointment: Laura Colin WPtel: [address] [place], [place] [phone] [place] Follow up 07/01/2013 Appointment: Karma Bahena WPtel: [address] [place], [place] [id number] [place] Follow up 07/01/2013 Patient Education: Patient Medication Summary Completed 07/01/2013 Appointment: Karma Bahena WPtel: [address] [place] [id number] [place] Follow up 06/25/2013 Appointment: Karma Bahena WPtel: [address] [place] [id number] [place] Lab Draw 06/20/2013 Patient Education: Patient Medication Summary Completed 06/20/2013 Appointment: Karma Bahena WPtel: [address] [place] [id number] [place] Lab Draw 06/19/2013 Visit Plan: Atrial [...] at home. 05/29/2013 Appointment: Karma Bahena WPtel: [facility]8 [facility] Follow up 05/29/2013 Patient Education: Patient [...] at home. 05/15/2013 Appointment: Karma Bahena WPtel: [phone] [facility] [place] Other 05/15/2013 Patient Education: Patient Medication [...] today. 04/23/2013 Appointment: Karma Bahena WPtel: [phone] [facility] Other 04/23/2013 Patient Education: Patient Medication [...] regimen. 03/21/2013 Appointment: Laura Colin WPtel: [phone] [phone] Follow up 03/21/2013 Patient Education: [...] uncontrolled. 01/16/2013 Appointment: Karma Bahena WPtel: [address] [place], [place] [phone] Follow up 01/16/2013 Patient Education: Patient Medication Summary Completed 01/16/2013 Patient Education: Hypertension Completed 01/16/2013 Visit Plan: Wound Instructions - Pt was instruced to keep the wound clean, wash with antibacterial soap, use triple antibiotic ointment, call if redness, pustular drainage, or any other acute conerns. 12/19/2012 Appointment: Karma Bahena WPtel: [address] [place], [place] [phone] Other 12/19/2012 Patient Education: Patient Medication Summary Completed 12/19/2012 Patient Education: Patient Medication Summary Completed 12/17/2012 Visit Plan: Cellulitis - improved- monitor symptoms - need to check handon Monday morning. 12/14/2012 Appointment: Karma Bahena WPtel: [address] [place], [place] [phone] Follow up 12/14/2012 Patient Education: Patient Medication Summary Completed 12/14/2012 Visit Plan: Cellulitis - improved- monitor symptoms - need to check handon Monday morning. 12/12/2012 Appointment: Karma Bahena WPtel: [address] [place], [place] [phone] Work-in 12/12/2012 Patient Education: Patient Medication Summary [...] warmth, discharge. 12/10/2012 Appointment: Karma Bahena WPtel: [facility]5 [facility] Other 12/10/2012 Patient Education: Patient Medication [...] becoming uncontrolled. 10/30/2012 Appointment: Karma Bahena WPtel: [facility] Follow up 10/30/2012 Patient Education: Patient Medication Summary Completed 10/30/2012 Appointment: Laura Colin WPtel: [facility]8 [phone] Lab Draw 09/13/2012 Patient Education: Patient [...] 3.5. 08/08/2012 Appointment: Karma Bahena WPtel: [phone] [facility] Other 08/08/2012 Patient Education: Patient Medication [...] regimen. 07/11/2012 Appointment: Karma Bahena WPtel: [phone] [facility] swelling, leg edema Other 07/11/2012 Patient [...] medication vaginally. 05/08/2012 Appointment: Karma Bahena WPtel: [facility] Follow up 05/08/2012 Patient Education: Patient Medication [...] during hospitalization. 04/18/2012 Appointment: Karma Bahena WPtel: [address] [place] [id number] Follow up 04/18/2012 Patient Education: Patient Medication Summary Completed 04/18/2012 Patient Education: High Blood Pressure: Essential Hypertension Completed 04/18/2012 Appointment: Karma Bahena WPtel: [address] [place] [id number] Follow up 04/09/2012 Appointment: Karma Bahena WPtel: [address] [place] [id number] [place] Lab Draw 04/04/2012 Appointment: Laura Colin WPtel: [address] [place], [place] [id number] [place] Lab Draw 03/19/2012 Visit Plan: Abdominal [...] Hypertension Completed 03/13/2012 Appointment: Karma Bahena WPtel: [facility] [place] Lab Draw 03/08/2012 Patient Education: [...] rehab. 02/20/2012 Appointment: Karma Bahena WPtel: [phone] [facility] Other 02/20/2012 Patient Education: Patient Medication [...] becoming uncontrolled. 02/13/2012 Appointment: Laura Colin WPtel: [facility]2 [phone] [place] [address] Other 02/13/2012 Patient Education: Patient Medication Summary Completed 02/13/2012 Appointment: Karma Bahena WPtel: [facility]3 [facility] Lab Draw 02/07/2012 Visit Plan: Atrial Fibrillation [...] medication. 02/01/2012 Appointment: Karma Bahena WPtel: [phone] [facility] [place] Other 02/01/2012 Patient Education: Patient Medication Summary Completed 02/01/2012 Patient Education: High Blood Pressure: Essential Hypertension Completed 02/01/2012 Appointment: Karma Bahena WPtel: [facility]5 [facility] Lab Draw 01/17/2012 Visit Plan: Atrial Fibrillation [...] at home. 2012 Appointment: Karma Bahena WPtel: [facility]4 [facility] Other 2012 Patient Education: Patient Medication Summary Completed 2012 Patient Education: High Blood Pressure: Essential Hypertension Completed 2012 Appointment: Karma Bahena WPtel: [facility]5 [facility] Follow up 12/20/2011 Visit Plan: Dicyclomine [...] emergency room. 12/01/2011 Appointment: Karma Bahena WPtel: [facility] Other 12/01/2011 Patient Education: Patient Medication [...] infection resolves. 11/23/2011 Appointment: Laura Colin WPtel: [address] [place] [address] [place] Other 11/23/2011 Patient Education: Patient Medication Summary Completed 11/23/2011 Patient Education: High Blood Pressure: Essential Hypertension Completed 11/23/2011 Visit Plan: Cerumen Impaction - The impacted cerumen was removed with the use of either ear currette alone or in combination with ear curette and water pick. The patient tolerated the procedure without incident and had improvement in hearing 10/17/2011 Appointment: Laura Colin WPtel: [address] [place], [place] [phone] Other 10/17/2011 Patient Education: Patient Medication Summary [...] by irrigation. 10/03/2011 Appointment: Karma Bahena WPtel: [address] [place] [address] Other 10/03/2011 Patient Education: Patient Medication Summary [...] is evidence. 08/08/2011 Appointment: Karma Bahena WPtel: [address] [place] [address] Other 08/08/2011 Patient Education: Patient Medication Summary Completed 08/08/2011 Patient Education: High Blood Pressure: Essential Hypertension Completed 08/08/2011 Visit Plan: Muscle cramps - the cramps are a little better, continue with the Diltiazem and it is okay to use the over the counter supplement with quinine - but use it sparingly. For the rash, use the prescripti on the behavioral health case manager prescribed for the itching , call if the rash is not improved. Torticollis - continue with physical therapy, call if the neck muscles do not continue to show improvement. 05/09/2011 Appointment: Karma Bahena WPtel: [facility] [address] Other 05/09/2011 Patient Education: Patient Medication [...] water aerobics. 03/29/2011 Appointment: Karma Bahena WPtel: [address] [place] [address] [place] Other 03/29/2011 Patient Education: Patient Medication Summary Completed 03/29/2011 Appointment: Karma Bahena WPtel: [address] [place] [address] Other 03/17/2011 Visit Plan: UTI - UA negative. Urge incontinence- restart on the vesicare- at 5 mg. Continue to avoid caffinated foods/fluids. Peripheral Neuropathy - per vice president & general manager [employer] [place] report - Continue with the metanex. Loss of weight - WEIGHT CHECK IN 2 WKS. Palpitations- likely stress induced. If the symptoms worsen, call the office. 03/15/2011 Appointment: Karma Bahena WPtel: [address] [place] [address] Follow up 03/15/2011 Patient Education: Patient Medication Summary Completed 03/15/2011 Visit Plan: Rocephin 500mg IM 03/04/2011 Patient Education: Patient Medication Summary Completed 03/04/2011 Referral: Dr Jeff Referral Appointment Requested Referral: Corby Collins Referral Appointment Requested Instructions Comment . UTI - UA negative. Urge incontinence- restart on the vesicare- at 5 mg. Continue to avoid caffinated foods/fluids. Peripheral Neuropathy - per vice president & general manager [employer] [place] report - Continue with the metanex. Loss [...] to help decrease irritation of urethra. . Cellulitis - continue with oral antibiotics [...] if their heart rate is becoming uncontrolled. continue with carafate - use as much [...] home. Jeannie and romina- recommended cardiac rehab. . Hypothyroidism - pt [...] heart rate. Osteoarthritis - send pt to [facility] physical therapy for [facility] osteoarhtritis program for strengthening and pain reduction. Hypertension - well controlled - continue with current medications, continue with no added salt diet. Pt has been encouraged to exercise daily. The pt has been advised to call the office if there are any acute concerns about change in blood pressure readings at home. . ua obtained, no need for culture at this time. . Atrial Fibrillation - pt on chronic [...] in blood pressure readings at home. . JFA-[id number] zpack-call if symptoms do not resolve or [...] therefore, would not change the medication. . Cerumen Impaction - The impacted cerumen [...] keeping patient stabilized during the removal process. change the thyroid to 1/2 pill on [...] fecal symptoms - referral to Dr. Collins. Bowel Regimen stool softener - four at [...] is to go to the emergency room. increase the lisinopril to 20mg twice daily [...] ointment on rectal tissue . Cellulitis - improved- monitor symptoms - need to check handon Monday morning. . Leg cramps - uncontrolled with the [...] not improving will consult Dr. Collins. . Hypertension - well controlled [...] Follow up Monday for dressing changes. . Cellulitis - improved- monitor symptoms - need to check handon Monday morning. . Rocephin 500mg IM . Muscle cramps - the cramps are a little better, continue with the Diltiazem and it is okay to use the over the counter supplement with quinine - but use it sparingly. For the rash, use the prescription the behavioral health case manager prescribed for the itching , call if the rash is not improved. Torticollis - continue with physical therapy, call if the neck muscles do not continue to show improvement. switch to tatiana . URI/ALLERGIES- recommended pt [...] in the nasal steroid allergy spray. pt is to stop her omeprazole and [...] CTscan, and will be called with report. Elevated digoxin level - pt was recommended [...] INR is between 2.0 and 3.5. . Hematuria - check UA. Referral to [...] is becoming uncontrolled. Incontinence - recommended vesicare. OK TO RESTART VESICARE DAILY OK TO USE GAS X NEEDED FOR GAS AND BLOATING . Diarrhea-Continue with a healthy diet,start with bland advance as tolerated and I have recommended addition of probiotic to the diet when having loose bowel movements. Instructed patient to call if she develops abdominal pain, diarrhea does not resolve, etc. Patient verbalized understanding of plan. . Abdominal pain and rectal itching - recommended pt to use betamethasone on vaginal/rectal region, monitor symptoms call if not improving. Continue with beano and simethicone Miralax- take 1/2 dose daily, and may [...] june 25-patient to let Dr Hansen know Increase miralax to full dose daily. Constipation [...] pain. Tylenol/motrin as needed for fever/discomfort. . Edema - with Dyspnea - RX for laxis and compression socks - pt to call if not improving. . Hypertension - well controlled [...] if the symptoms are not improving. . Allergies - chronic - recommended pt [...] weight that was lost during hospitalization. . Gout Attack - Pt complains of [...] color, consistency, recheck at follow up appointment. If using nasal spray, instructions as follows: [...] spray in the nasal steroid allergy spray. diflucan 150mg daily x 7 days - [...] know if this helps with your swelling. IF HEART RATE UNDER 60 CONSISTENTLY TAKE [...] had left kidney and ureter removed in [place]- doing well use simethicone four times daily - after [...] Gas/bloating-continue gas x-avoid gas forming foods-monitor symptoms . Hypertension - well controlled - continue [...] steroid (nasacort) allergy spray. . Hypertension - well controlled [...] months based on previous levels of control. boil ease or recticare - if having [...] their heart rate is becoming uncontrolled. . Medicare Exam - today we discussed [...] if their heart rate is becoming uncontrolled. doctor will refer to Dr. Joel Collins - for nonsurgical intervention for potential electrical stimulation/training of pelvic floor muscles - for strengthening - can start on the treatment when you get back from [place] - will also ask him about doing [...] the treatment when you get back from [place] - will also ask him about doing a cystoscopy to look into bladder to see if there is any bladder irritation. keep using the Premarin - use about 25Cent size of cream onto finger to apply to urethra and do this three times weekly. . Wound care - continue with dressing changes, daily use of bactroban - monitor symptoms. pt to have esr, crp, tsh, free [...] exposure,and dyspnea on exertion - will ask [employer] [place] Patient do an overnight oxygen study [...]
--- OUTSIDE RECORDS SUMMARY | 2018-12-10 21:14 | XMS REPORT | CCD ---
Author Author Laura Colin Organization Karma Bahena MD, [facility] Address [address] [place] [address] Phone Care Team Providers Care Magnetic Healer Name Role Phone Karma Bahena PP Unavailable CCM Unavailable Summary Purpose Interface Exchange Insurance Providers Payer name Policy type / Coverage type Covered green party ID Effective Begin Date Effective End Date WPS Medicare Part B Medicare Part B [id number] 2018 Unknown AARP Medicare Part B [id number] 2018 Unknown Family history Sister Diagnosis Age [...] Unknown House 03/15/[address]: 707909436 Never smoker 03/15/2011 Has the patient ever used illegal drugs? Unknown Has never used illegal drugs 03/15/2011 Allergies, Adverse Reactions, Alerts Substance Reaction Codes Entered Date Inactivated Date Status BACTINE RxNorm: 308256 03/04/2011 No Inactive Date Active MICONAZOLE RxNorm: 6932 03/04/2011 No Inactive Date Active NEOSPORIN RxNorm: 612157 03/04/2011 No Inactive Date Active NEOMYCIN RxNorm: 7299 03/04/2011 No Inactive Date Active CORTISPORIN RxNorm: 05512 03/04/2011 No Inactive Date Active bactrim RxNorm: 757271 03/13/2012 No Inactive Date Active AUGMENTIN diarrhea RxNorm: 076064 2016 No Inactive Date Active METRONIDAZOLE Unknown [...] 401.9 ICD-10: I10 Active 12/25/2013 Unknown Other detention (current) drug therapy ICD-9: V58.83 ICD-10: Z79.899 [...] 706.2 ICD-10: L72.0 Active 02/01/2016 Unknown Other detention (current) drug therapy ICD-9: V58.69 ICD-10: Z79.899 [...] ICD-9: 401.9 ICD-10: I10 12/25/2013 Active 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 ICD-9: V58.83 ICD-10: Z79.899 [...] ICD-9: 706.2 ICD-10: L72.0 02/01/2016 Active Other detention (current) drug therapy ICD-9: V58.69 ICD-10: Z79.899 [...] Start Date Stop Date Status Fill Instructions sucralfate 100 mg/mL oral suspension RxNorm: 720807 2 Teaspoon(s) PO TID as needed with reflux symptoms 06/04/2018 No Stop Date Active Vesicare 10 mg tablet RxNorm: 147348 1 TABLET(S) PO EVERY OTHER DAY 05/14/2018 01/08/2019 Active levothyroxine 50 mcg tablet RxNorm: 251140 1 TABLET(S) PO DAILY 04/30/2018 07/28/2018 Active Patient requests 90 days supply spironolactone 25 mg tablet RxNorm: 059845 1 Tablet(s) PO daily 03/14/2018 03/08/2019 Active levothyroxine 50 mcg tablet RxNorm: 560928 1 Tablet(s) PO daily 02/01/2018 04/29/2018 Inactive Eliquis 2.5 mg tablet RxNorm: 9584702 1 Tablet(s) PO BID 01/31/2018 02/20/2018 Inactive levothyroxine 50 mcg tablet RxNorm: 951083 1 Tablet(s) PO daily 01/31/2018 01/31/2018 Inactive Eliquis 2.5 mg tablet RxNorm: 9602655 TAKE 1 TABLET BY MOUTH TWICE DAILY 01/23/2018 07/21/2018 Active metoprolol succinate ER 50 mg tablet,extended release 24 hr RxNorm: 144332 1 TABLET(S) PO DAILY 01/23/2018 01/30/2018 Inactive metoprolol succinate ER 50 mg tablet,extended release 24 hr RxNorm: 473799 1.5 Tablet(s) daily 01/22/2018 10/18/2018 Active lisinopril 20 mg tablet RxNorm: 242691 1/2 Tablet(s) daily 01/19/2018 01/21/2018 Inactive Patient requests 90 days supply Singulair 10 mg tablet RxNorm: 729601 TAKE 1 TABLET BY MOUTH AT BEDTIME 01/18/2018 04/17/2018 Inactive Patient requests 90 days supply Singulair 10 mg tablet RxNorm: 755091 Tablet(s) PO 01/17/2018 01/17/2018 Inactive digoxin 125 mcg tablet RxNorm: 626334 1 TABLET(S) PO DAILY 01/03/2018 12/28/2018 Active Symbicort 160 mcg-4.5 mcg/actuation HFA aerosol inhaler RxNorm: 9655395 2 Puff(s) INH BID 12/14/2017 04/12/2018 Inactive please dispense an aerochamber for patient as well as her symbicort cyclobenzaprine 5 mg tablet RxNorm: 397902 Tablet(s) 1/2 TABLET(S) PO Q8 NEEDED MUSCLE SPASMS 12/14/2017 No Stop Date Active pantoprazole 40 mg tablet,delayed release RxNorm: 772002 1 Tablet(s) PO daily 12/14/2017 12/08/2018 Active ProAir RespiClick 90 mcg/actuation breath activated RxNorm: 8468830 1-2 INH QID as needed shortness of breath 12/14/2017 07/11/2018 Active cyclobenzaprine 5 mg tablet RxNorm: 817184 1/2 TABLET(S) PO Q8 NEEDED MUSCLE SPASMS 12/08/2017 12/13/2017 Inactive betamethasone dipropionate 0.05 % topical ointment RxNorm: 826506 1 Application TOP TID use topically on the rectal tissue three times daily x 1 week then as needed 11/13/2017 No Stop Date Active Premarin 0.625 mg/gram vaginal cream RxNorm: 415101 1/2 GRAM(S) VAG TIW 11/13/2017 12/12/2017 Inactive cyclobenzaprine 5 mg tablet RxNorm: 033547 1/2 TABLET(S) PO Q8 NEEDED MUSCLE SPASMS 10/17/2017 12/07/2017 Inactive Vesicare 10 mg tablet RxNorm: 336792 1 Tablet(s) PO every other day 10/17/2017 04/14/2018 Inactive lisinopril 20 mg tablet RxNorm: 461924 1 TABLET(S) PO DAILY 10/02/2017 01/18/2018 Inactive Patient requests 90 days supply levothyroxine 75 mcg tablet RxNorm: 296791 1 TABLET(S) PO DAILY 09/25/2017 01/30/2018 Inactive spironolactone 25 mg tablet RxNorm: 714887 1 TABLET(S) PO DAILY 08/16/2017 03/13/2018 Inactive cyclobenzaprine 5 mg tablet RxNorm: 408976 1/2 TABLET(S) PO Q8 NEEDED MUSCLE SPASMS 08/16/2017 10/16/2017 Inactive Eliquis 2.5 mg tablet RxNorm: 5622811 TAKE 1 TABLET BY MOUTH TWICE DAILY 07/26/2017 01/21/2018 Inactive cyclobenzaprine 5 mg tablet RxNorm: 144834 1/2 Tablet(s) PO Q8 as needed muscle spasms 06/19/2017 08/15/2017 Inactive lisinopril 20 mg tablet RxNorm: 249349 1 TABLET(S) PO DAILY 06/12/2017 10/01/2017 Inactive metoprolol succinate ER 50 mg tablet,extended release 24 hr RxNorm: 838276 1 TABLET(S) PO DAILY 04/07/2017 01/01/2018 Inactive spironolactone 25 mg tablet RxNorm: 530571 1 Tablet(s) PO daily 03/27/2017 03/13/2018 Inactive acyclovir 800 mg tablet RxNorm: 520364 1 Tablet(s) PO TID 03/21/2017 03/30/2017 Inactive acyclovir 800 mg tablet RxNorm: 469350 1 Tablet(s) PO TID 03/21/2017 03/20/2017 Inactive levothyroxine 75 mcg tablet RxNorm: 984232 1 Tablet(s) PO daily 03/16/2017 09/11/2017 Inactive spironolactone 25 mg tablet RxNorm: 861902 1 TABLET(S) PO DAILY 02/09/2017 03/26/2017 Inactive lisinopril 20 mg tablet RxNorm: 321510 1 TABLET(S) PO DAILY 01/02/2017 05/31/2017 Inactive Zithromax Z-Claudio 250 mg tablet RxNorm: 844206 1 Tablet(s) PO UD 11/29/2016 12/03/2016 Inactive ZPACK Keflex 500 mg capsule RxNorm: 571137 1 Capsule(s) PO TID 11/23/2016 12/02/2016 Inactive guaifenesin 400 mg tablet RxNorm: 595624 1 Tablet(s) PO Q6 as needed 11/23/2016 11/27/2016 Inactive omeprazole 40 mg capsule,delayed release RxNorm: 234932 1 Capsule(s) PO QPM 11/02/2016 12/13/2017 Inactive digoxin 125 mcg tablet RxNorm: 954594 1 TABLET(S) PO DAILY 10/27/2016 07/23/2017 Inactive cyclobenzaprine 5 mg tablet RxNorm: 406831 1/2 Tablet(s) PO Q8 PRN 10/25/2016 06/18/2017 Inactive prn muscle spasms Augmentin 500 mg-125 mg tablet RxNorm: 781158 1 Tablet(s) PO BID 10/24/2016 11/02/2016 Inactive Lasix 20 mg tablet RxNorm: 468323 Tablet(s) PRN one to two times a week if needed 07/27/2016 No Stop Date Active Patient requests 90 days supply spironolactone 25 mg tablet RxNorm: 609967 1 Tablet(s) PO daily 07/27/2016 02/08/2017 Inactive Diflucan 150 mg tablet RxNorm: 469932 1 Tablet(s) PO daily 07/27/2016 08/02/2016 Inactive lisinopril 20 mg tablet RxNorm: 051169 1 Tablet(s) PO daily 07/12/2016 01/01/2017 Inactive Lasix 20 mg tablet RxNorm: 220382 1 TABLET(S) PO EVERY OTHER DAY EVERY OTHER DAY 06/10/2016 07/26/2016 Inactive Patient requests 90 days supply potassium chloride ER 10 mEq capsule,extended release RxNorm: 963873 1 CAPSULE(S) PO EVERY OTHER DAY 06/10/2016 07/26/2016 Inactive Patient requests 90 days supply potassium chloride ER 10 mEq capsule,extended release RxNorm: 605571 1 Capsule(s) PO every other day 06/09/2016 06/09/2016 Inactive Lasix 20 mg tablet RxNorm: 385747 1 Tablet(s) PO every other day every other day 06/09/2016 06/09/2016 Inactive levothyroxine 88 mcg tablet RxNorm: 581717 1 Tablet(s) PO daily 05/11/2016 11/06/2016 Inactive Premarin 0.625 mg/gram vaginal cream RxNorm: 600048 1/2 Gram(s) VAG TIW 03/24/2016 03/18/2017 Inactive metoprolol succinate ER 50 mg tablet,extended release 24 hr RxNorm: 846552 1 Tablet(s) PO daily 03/24/2016 03/18/2017 Inactive pantoprazole 40 mg tablet,delayed release RxNorm: 206854 1 Tablet(s) PO daily 02/08/2016 11/01/2016 Inactive betamethasone dipropionate 0.05 % topical ointment RxNorm: 868948 1 Application TOP TID use topically on the rectal tissue three times daily x 1 week then as needed 02/02/2016 11/12/2017 Inactive pantoprazole 40 mg tablet,delayed release RxNorm: 140242 1 Tablet(s) PO daily 2016 02/07/2016 Inactive alprazolam 0.25 mg tablet RxNorm: 258988 1 Tablet(s) PO Q6 as needed 12/04/2015 No Stop Date Active Vesicare 10 mg tablet RxNorm: 798822 1 Tablet(s) PO every other day 11/03/2015 10/16/2017 Inactive alprazolam 0.25 mg tablet RxNorm: 350439 1 Tablet(s) PO Q6 as needed 11/03/2015 12/03/2015 Inactive Premarin 0.625 mg/gram vaginal cream RxNorm: 852668 1/2 Gram(s) VAG TIW 11/03/2015 03/23/2016 Inactive levothyroxine 88 mcg tablet RxNorm: 130318 1 Tablet(s) PO daily 11/03/2015 05/10/2016 Inactive Diflucan 150 mg tablet RxNorm: 214331 1 Tablet(s) PO daily 10/19/2015 10/25/2015 Inactive cetirizine 10 mg chewable tablet RxNorm: 7509378 1 Tablet(s) PO daily 10/13/2015 11/11/2015 Inactive cetirizine 10 mg capsule RxNorm: 2179618 1 Capsule(s) PO daily 10/13/2015 11/11/2015 Inactive Vesicare 10 mg tablet RxNorm: 431632 1/2 TABLET(S) PO BID 09/21/2015 11/02/2015 Inactive betamethasone dipropionate 0.05 % topical ointment RxNorm: 191481 1 Application TOP TID use topically on the rectal tissue three times daily x 1 week then as needed 09/15/2015 02/01/2016 Inactive lisinopril 20 mg tablet RxNorm: 775051 1 Tablet(s) PO daily 09/01/2015 07/11/2016 Inactive digoxin 125 mcg tablet RxNorm: 021275 1 Tablet(s) PO daily 09/01/2015 08/25/2016 Inactive Augmentin 500 mg-125 mg tablet RxNorm: 211129 1 Tablet(s) PO TID 05/26/2015 06/04/2015 Inactive Pyridium 200 mg tablet RxNorm: 5396982 1 Tablet(s) PO TID 05/26/2015 05/27/2015 Inactive levothyroxine 88 mcg tablet RxNorm: 691195 1 Tablet(s) PO daily except 1/2 pill on monday and 05/07/2015 11/02/2015 Inactive digoxin 125 mcg tablet RxNorm: 415444 1 Tablet(s) PO daily 05/07/2015 08/31/2015 Inactive lisinopril 20 mg tablet RxNorm: 425541 1 TABLET(S) PO BID 04/13/2015 09/01/2015 Inactive Coumadin 1 mg tablet RxNorm: 021904 1 TABLET(S) PO DAILY 03/31/2015 08/31/2015 Inactive Coumadin 2 mg tablet RxNorm: 868251 4MG IN AM AND 1MG AT NIGHT TABLET(S) PO DAILY DIRECTED. 03/31/2015 08/31/2015 Inactive levothyroxine 88 mcg tablet RxNorm: 726912 1 Tablet(s) PO daily 03/23/2015 05/06/2015 Inactive alprazolam 0.25 mg tablet RxNorm: 493910 Tablet(s) PO 03/23/2015 04/06/2015 Inactive levothyroxine 88 mcg tablet RxNorm: 148255 1 Tablet(s) PO daily 01/28/2015 03/22/2015 Inactive levothyroxine 88 mcg tablet RxNorm: 972749 1 Tablet(s) PO daily 01/28/2015 01/27/2015 Inactive diltiazem ER 120 mg capsule,extended release RxNorm: 200462 1 Capsule(s) PO BID patient would like 4 months at a time 01/06/2015 09/28/2015 Inactive digoxin 125 mcg tablet RxNorm: 914226 Tablet(s) 1 TABLET(S) PO DAILY 12/24/2014 12/23/2014 Inactive pt will be paying [employer]oma[employer] (On $4 list)Patient requests 90 days supply digoxin 125 mcg tablet RxNorm: 273566 Tablet(s) 1 TABLET(S) PO DAILY M W F Sat and 2 tabs on T 12/24/2014 05/06/2015 Inactive pt will be paying [employer]omares (On $4 list)Patient requests 90 days supply dicyclomine 20 mg tablet RxNorm: 071047 1 Tablet(s) PO daily 11/17/2014 08/31/2015 Inactive one ac dinner and up to tid prn levothyroxine 88 mcg tablet RxNorm: 228515 1 Tablet(s) PO daily 11/03/2014 01/27/2015 Inactive Premarin 0.625 mg/gram vaginal cream RxNorm: 119396 1 APPLICATION VAG 1 APPLICATOR PER VAGINA 3 TIMES PER WEEK 11/03/2014 07/30/2015 Inactive digoxin 125 mcg tablet RxNorm: 493945 1 TABLET(S) PO DAILY 09/29/2014 12/23/2014 Inactive pt will be paying [employer]oma[employer] (On $4 list)Patient requests 90 days supply digoxin 125 mcg tablet RxNorm: 482647 1 TABLET(S) PO DAILY 07/11/2014 04/06/2015 Inactive Vesicare 10 mg tablet RxNorm: 140673 1/2 Tablet(s) PO BID 05/20/2014 05/14/2015 Inactive Levaquin 500 mg tablet RxNorm: 437688 1 Tablet(s) PO daily 05/06/2014 05/08/2014 Inactive take probiotic BID while on ABT Levaquin 500 mg tablet RxNorm: 967667 1 Tablet(s) PO daily 05/02/2014 05/05/2014 Inactive take probiotic BID while on ABT diltiazem ER 120 mg capsule,extended release RxNorm: 418650 1 Capsule(s) PO BID patient would like 4 months at a time 04/29/2014 2015 Inactive Vesicare 10 mg tablet RxNorm: 787998 1/2 Tablet(s) PO BID 04/29/2014 05/19/2014 Inactive lisinopril 20 mg tablet RxNorm: 637239 1 Tablet(s) PO BID 03/20/2014 03/14/2015 Inactive diltiazem 90 mg tablet RxNorm: 109227 1/2 TABLET(S) PO QPM 03/04/2014 04/28/2014 Inactive also 180 q am diltiazem ER 120 mg capsule,extended release RxNorm: 040684 1 Capsule(s) PO daily patient would like 4 months at a time 01/29/2014 04/28/2014 Inactive Vesicare 10 mg tablet RxNorm: 724215 1 Tablet(s) PO QHS 01/14/2014 04/28/2014 Inactive Coumadin 2 mg tablet RxNorm: 820300 4mg in AM and 1mg at night Tablet(s) PO daily as directed. 12/25/2013 03/30/2015 Inactive Metanx 3 mg-35 mg-2 mg tablet RxNorm: 1 Tablet(s) PO daily 12/25/2013 11/02/2015 Inactive digoxin 125 mcg tablet RxNorm: 543076 1 Tablet(s) PO daily 12/25/2013 09/28/2014 Inactive pt will be paying [employer]oma[employer] (On $4 list) Coumadin 2 mg tablet RxNorm: 537671 7.5 wed 5mg other Tablet(s) PO as directed. 12/03/2013 12/24/2013 Inactive omeprazole 20 mg tablet,delayed release RxNorm: 680062 1 Tablet(s) PO BID 11/27/2013 04/28/2014 Inactive Coumadin 2 mg tablet RxNorm: 864541 5 mg daily Tablet(s) PO as directed. 11/26/2013 12/02/2013 Inactive 5 mg daily Xanax 0.25 mg tablet RxNorm: 576435 1 Tablet(s) PO Q6 PRN 11/11/2013 12/25/2013 Inactive alprazolam 0.25 mg tablet RxNorm: 587347 tablet oral 11/11/2013 03/22/2015 Inactive sucralfate 1 gram tablet RxNorm: 952054 1 Tablet(s) PO AC & HS 11/04/2013 11/03/2013 Inactive sucralfate 1 gram tablet RxNorm: 955284 1 Tablet(s) PO AC & HS 11/04/2013 01/02/2014 Inactive Synthroid 100 mcg tablet RxNorm: 487938 1 Tablet(s) PO daily 10/31/2013 10/25/2014 Inactive Synthroid 100 mcg tablet RxNorm: 097287 1 Tablet(s) PO daily 09/30/2013 10/29/2013 Inactive Vesicare 10 mg tablet RxNorm: 447780 1 Tablet(s) PO QHS 09/30/2013 01/13/2014 Inactive Lotemax 0.5 % eye ointment RxNorm: 0366842 ointment opht 09/06/2013 12/10/2013 Inactive levothyroxine 100 mcg tablet RxNorm: 778134 tablet oral 09/05/2013 11/02/2014 Inactive Synthroid 100 mcg tablet RxNorm: 786454 1 Tablet(s) PO daily 09/05/2013 09/29/2013 Inactive Prolia 60 mg/mL Sub-Q Syringe RxNorm: 700792 1 Milliliter(s) SQ 06/25/2013 11/02/2015 Inactive dicyclomine 20 mg tablet RxNorm: 802206 1 Tablet(s) PO daily 06/24/2013 06/18/2014 Inactive one ac dinner and up to tid prn omeprazole 20 mg tablet,delayed release RxNorm: 786590 1 Tablet(s) PO BID 06/24/2013 11/26/2013 Inactive Cipro 500 mg tablet RxNorm: 999459 1 Tablet(s) PO BID 06/20/2013 06/26/2013 Inactive diltiazem ER 120 mg capsule,extended release RxNorm: 408942 1 Capsule(s) PO daily patient would like 4 months at a time 06/03/2013 01/28/2014 Inactive Coumadin 2 mg tablet RxNorm: 610385 as directed Tablet(s) PO as directed. 05/29/2013 11/25/2013 Inactive 5 mg daily Synthroid 88 mcg tablet RxNorm: 039791 1 Tablet(s) PO daily 04/24/2013 04/23/2013 Inactive Synthroid 88 mcg tablet RxNorm: 832972 1 Tablet(s) PO daily 04/24/2013 07/28/2013 Inactive Premarin 0.625 mg/gram vaginal cream RxNorm: 503467 1 Application VAG 1 applicator per vagina 3 times per week 04/23/2013 04/17/2014 Inactive Influenza Virus Vaccine 0.5 mL RxNorm: IM 04/23/2013 04/23/2013 Inactive digoxin 125 mcg tablet RxNorm: 174214 1 Tablet(s) PO daily 02/20/2013 04/20/2013 Inactive pt will be paying palomares (On $4 list) Digox 125 mcg tablet RxNorm: 1522542 tablet oral 02/13/2013 03/20/2014 Inactive digoxin 125 mcg tablet RxNorm: 059659 1 Tablet(s) PO daily 02/13/2013 02/19/2013 Inactive diltiazem 90 mg tablet RxNorm: 811334 1/2 Tablet(s) PO QPM 02/13/2013 02/07/2014 Inactive also 180 q am Levoxyl 75 mcg tablet RxNorm: 067679 1 Tablet(s) PO 01/16/2013 04/23/2013 Inactive Coumadin 2 mg tablet RxNorm: 863164 6mg daily except 3mg on mon and mon Tablet(s) PO 01/15/2013 05/28/2013 Inactive 5 mg daily Coumadin 2 mg tablet RxNorm: 300019 6mg daily Tablet(s) PO 12/21/2012 01/14/2013 Inactive 5 mg daily silver sulfadiazine 1 % Topical Cream RxNorm: 456370 TOP apply to affected area with each dressing change 12/19/2012 12/25/2013 Inactive cephalexin 500 mg tablet RxNorm: 148640 1 Tablet(s) PO TID 12/11/2012 12/17/2012 Inactive digoxin 125 mcg tablet RxNorm: 7026042 1 Tablet(s) PO daily 10/30/2012 02/12/2013 Inactive digoxin 125 mcg tablet RxNorm: 8131636 2 tab tue th one other days Tablet(s) PO daily 10/23/2012 10/29/2012 Inactive lisinopril 10 mg tablet RxNorm: 520744 1 Tablet(s) PO daily 10/17/2012 08/14/2013 Inactive Cipro 500 mg tablet RxNorm: 797082 1 Tablet(s) PO BID 09/13/2012 09/19/2012 Inactive Coumadin 1 mg tablet RxNorm: 922299 1 Tablet(s) PO daily 09/03/2012 09/02/2012 Inactive Coumadin 1 mg tablet RxNorm: 234565 1 Tablet(s) PO daily 09/03/2012 12/21/2012 Inactive Coumadin 2 mg tablet RxNorm: 576861 Tablet(s) PO 07/25/2012 12/20/2012 Inactive 5 mg daily digoxin 125 mcg tablet RxNorm: 4228691 1 Tablet(s) PO daily 06/28/2012 10/22/2012 Inactive Coumadin 2 mg tablet RxNorm: 525488 Tablet(s) PO 06/27/2012 07/24/2012 Inactive 5mg daily except 4mg on monday Coumadin 2 mg tablet RxNorm: 447123 Tablet(s) PO 06/19/2012 06/26/2012 Inactive 5mg e mon thur sat sun4mg mon(has 2mg and 1 mg tab) digoxin 125 mcg tablet RxNorm: 1113793 1 Tablet(s) PO daily 05/29/2012 06/27/2012 Inactive Coumadin 2 mg tablet RxNorm: 033827 Tablet(s) PO 05/15/2012 06/18/2012 Inactive 5mg tue thur sat sun4mg mon frid(has 2mg and 1 mg tab) Coumadin 2 mg tablet RxNorm: 442366 Tablet(s) PO 04/25/2012 05/14/2012 Inactive 5mg tue thru sat4mg mond sun(has 2mg and 1 mg tab) Metanx 3 mg-35 mg-2 mg tablet RxNorm: 1 Tablet(s) PO BID 04/18/2012 12/24/2013 Inactive dicyclomine 20 mg tablet RxNorm: 279132 1 Tablet(s) PO 04/18/2012 06/23/2013 Inactive one ac dinner and up to tid prn digoxin 125 mcg tablet RxNorm: 4849597 Tablet(s) PO daily except .25 on Tuesdays and 04/09/2012 05/28/2012 Inactive omeprazole 20 mg tablet,delayed release RxNorm: 687654 1 Tablet(s) PO BID 04/09/2012 04/03/2013 Inactive digoxin 125 mcg tablet RxNorm: 9125961 1 Tablet(s) PO UD daily except none on Tuesdays and 03/13/2012 04/08/2012 Inactive Premarin 0.625 mg/gram Vaginal Cream RxNorm: 872754 1 Application VAG 1 applicator per vagina 3 times per week 02/20/2012 02/13/2013 Inactive omeprazole 20 mg tablet,delayed release RxNorm: 523714 1 Tablet(s) PO BID 02/13/2012 04/08/2012 Inactive Vesicare 10 mg tablet RxNorm: 602430 1 Tablet(s) PO QHS 02/13/2012 02/06/2013 Inactive Diflucan 150 mg tablet RxNorm: 596343 1 Tablet(s) PO daily 02/13/2012 02/19/2012 Inactive omeprazole 20 mg tablet,delayed release RxNorm: 530519 1 Tablet(s) PO BID 01/06/2012 02/12/2012 Inactive Calcium 600 + D(3) 600 mg (1,500)-200 unit Tab RxNorm: 125958 2 Tablet(s) PO BID 01/06/2012 08/31/2015 Inactive diltiazem 90 mg tablet RxNorm: 622858 1/2 Tablet(s) PO QPM 12/26/2011 02/12/2013 Inactive also 180 q am diltiazem ER 180 mg Cap RxNorm: 483571 1 Capsule(s) PO QAM 12/26/2011 04/08/2012 Inactive 45mg q hs Flagyl 500 mg Tab RxNorm: 362920 1 Tablet(s) PO BID 12/14/2011 12/20/2011 Inactive dicyclomine 10 mg Cap RxNorm: 775992 1 Capsule(s) PO AC & HS 12/01/2011 12/25/2011 Inactive Levaquin 500 mg Tab RxNorm: 635895 1 Tablet(s) PO daily 11/23/2011 11/29/2011 Inactive Rocephin 500 mg Solution for Injection RxNorm: 272122 Inj 11/23/2011 11/23/2011 Inactive acyclovir 400 mg Tab RxNorm: 028661 1 Tablet(s) PO QID 11/10/2011 11/19/2011 Inactive acyclovir 400 mg Tab RxNorm: 897613 1 Tablet(s) PO QID 11/10/2011 11/09/2011 Inactive lisinopril 20 mg Tab RxNorm: 166336 1 Tablet(s) PO daily 10/03/2011 11/27/2011 Inactive lisinopril 20 mg Tab RxNorm: 504416 1 Tablet(s) PO daily 08/08/2011 10/02/2011 Inactive Reclast 5 mg/100 mL IV RxNorm: 071254 Milliliter(s) IV Yearly 06/08/2011 01/16/[address] Hansen manages Rocephin 500 mg Solution for Injection RxNorm: 041319 1 Milliliter(s) Inj 03/04/2011 08/08/2011 Inactive Ceftin 500 mg Tab RxNorm: 244895 1 Tablet(s) PO BID 03/04/2011 08/08/2011 Inactive Vitamin D3 1,000 unit tablet RxNorm: 047448 2 Tablet(s) PO daily No Start Date Active Stool Softener 100 mg tablet RxNorm: 4811348 2 Tablet(s) PO QHS No Start Date Active Beano tablet RxNorm: 2-3 Tablet(s) PO as needed No Start Date Active Probiotic Pearls 15 mg (1 billion cell) capsule,delayed release RxNorm: 1 Capsule(s) PO daily No Start Date Active Lipitor 10 mg tablet RxNorm: 561025 1 Tablet(s) PO daily No Start Date Active Miralax 17 gram oral powder packet RxNorm: 635671 1/2 packet PO QHS No Start Date Active multivitamin Tab RxNorm: 1 Tablet(s) PO daily No Start Date Active Tylenol Extra Strength 500 mg tablet RxNorm: 674276 2 Tablet(s) PO as needed No Start Date Active Combigan 0.2 %-0.5 % eye drops RxNorm: 552879 1 Drop(s) OPH BID No Start Date Active 1 drop twice daily left eye Lexapro 5 mg tablet RxNorm: 429248 1 Tablet(s) PO daily No Start Date Active Tatiana Allergy 180 mg tablet RxNorm: 108238 1 Tablet(s) PO daily No Start Date Active Lotemax 0.5 % eye drops,suspension RxNorm: 922592 1 Drop(s) OPH right eye BID No Start Date Active Levoxyl 50 mcg tablet RxNorm: 712725 1 Tablet(s) PO daily No Start Date 01/15/2013 Inactive lisinopril-hydrochlorothiazide 20 mg-25 mg Tab RxNorm: 518939 1 Tablet(s) PO daily No Start Date 08/07/2011 Inactive Metanx 3 mg-35 mg-2 mg tablet RxNorm: 1 Tablet(s) PO daily No Start Date 04/17/2012 Inactive diltiazem CD 120 mg capsule,extended release 24 hr RxNorm: 361796 1 Capsule(s) PO daily No Start Date 09/28/2015 Inactive lisinopril 20 mg tablet RxNorm: 891681 Tablet(s) PO No Start Date Active Lumigan 0.01 % Eye Drops RxNorm: 8494439 1 Drop(s) OPH daily Left eye No Start Date 12/10/2013 Inactive prednisolone acetate 1 % Eye Drops, Susp RxNorm: 0935820 1 Drop(s) OPH BID 1 drop right eye am and hs No Start Date 11/02/2015 Inactive Eliquis 5 mg tablet RxNorm: 6650882 1 Tablet(s) PO BID No Start Date 06/08/2016 Inactive potassium gluconate (bulk) Misc RxNorm: Miscellaneous No Start Date 12/25/2011 Inactive Calcium 600 + D(3) 600 mg (1,500)-200 unit Tab RxNorm: 963635 3 Tablet(s) PO daily No Start Date 2012 Inactive Zyrtec 10 mg tablet RxNorm: 5758803 1 Tablet(s) PO daily No Start Date 08/02/2016 Inactive Synthroid 100 mcg tablet RxNorm: 511083 1 Tablet(s) PO daily No Start Date 09/04/2013 Inactive metoprolol succinate ER 50 mg tablet,extended release 24 hr RxNorm: 724354 1 Tablet(s) PO daily No Start Date 03/23/2016 Inactive Carafate 100 mg/mL oral suspension RxNorm: 081763 2 Teaspoon(s) PO as needed with reflux symptoms No Start Date 06/03/2018 Inactive Metanx 3 mg-35 mg-2 mg tablet RxNorm: 1 Tablet(s) PO daily 2pm No Start Date 11/02/2015 Inactive Lexapro 5 mg tablet RxNorm: 365328 1 Tablet(s) PO daily No Start Date 08/18/2015 Inactive Iron (dried) oral RxNorm: 63530 oral No Start Date 11/02/2015 Inactive timolol 0.5 % Eye Drops RxNorm: 409886 1 Drop(s) OPH daily left eye No Start Date 12/18/2013 Inactive multivitamin Cap RxNorm: 1 Capsule(s) PO daily No Start Date 12/25/2011 Inactive dicyclomine 10 mg Cap RxNorm: 555723 2 Capsule(s) PO daily No Start Date 11/30/2011 Inactive silver sulfadiazine 1 % Topical Cream RxNorm: 774386 TOP apply to affected area with each dressing change No Start Date 12/18/2012 Inactive magnesium oxide 400 mg Tab RxNorm: 113051 1 Tablet(s) PO daily No Start Date 11/02/2015 Inactive Pradaxa 75 mg Cap RxNorm: 4664976 1 Capsule(s) PO BID No Start Date 04/09/2012 Inactive magnesium oxide 400 mg Tab RxNorm: 007367 2 Tablet(s) PO daily magnesium plus zinc No Start Date 12/25/2011 Inactive biotin 1000 mg RxNorm: 1 PO daily No Start Date 12/25/2011 Inactive Synthroid 50 mcg Tab RxNorm: 331835 Tablet(s) PO No Start Date 12/25/2011 Inactive diltiazem ER 180 mg Cap RxNorm: 804081 1 Capsule(s) PO daily No Start Date 12/25/2011 Inactive 1 D 3 1000 iu Oral RxNorm: Oral No Start Date 12/25/2011 Inactive Coumadin 2 mg tablet RxNorm: 671105 Tablet(s) PO No Start Date 04/24/2012 Inactive 5mg tue [id number] mon fri sat sun(has 2mg and 1 mg tab) dicyclomine 20 mg tablet RxNorm: 351166 Tablet(s) PO No Start Date 04/17/2012 Inactive one ac dinner and up to tid prn lactobacillus acidophilus tablet RxNorm: 1 Tablet(s) PO daily No Start Date 11/03/2015 Inactive Eliquis 2.5 mg tablet RxNorm: 7726234 1 Tablet(s) PO BID No Start Date 07/25/2017 Inactive Levoxyl 75 mcg Tab RxNorm: 725154 1 Tablet(s) PO daily No Start Date 10/02/2011 Inactive digoxin 125 mcg tablet RxNorm: 5776185 1 Tablet(s) PO daily No Start Date 03/12/2012 Inactive pantoprazole 40 mg tablet,delayed release RxNorm: 246270 1 Tablet(s) PO BID No Start Date 01/04/2016 Inactive cyclobenzaprine 5 mg tablet RxNorm: 065815 1/2 Tablet(s) PO Q8 PRN No Start Date 10/24/2016 Inactive diltiazem 90 mg Tab RxNorm: 812571 1/2 Tablet(s) PO QPM No Start Date 12/25/2011 Inactive Mirapex 1 mg Tab RxNorm: 802168 1 Tablet(s) PO QHS No Start Date 12/25/2011 Inactive Xanax 0.25 mg tablet RxNorm: 520597 1 Tablet(s) PO Q6 PRN No Start Date 11/10/2013 Inactive Premarin 0.625 mg/gram Vaginal Cream RxNorm: 384109 1 Application VAG 1 applicator per vagina 3 times per week No Start Date 02/19/2012 Inactive Synthroid 75 mcg Tab RxNorm: 640253 1 Tablet(s) PO daily No Start Date 04/17/2012 Inactive lisinopril 40 mg Tab RxNorm: 485593 1 Tablet(s) PO daily No Start Date 12/25/2011 Inactive Glucosamine Chondroitin Complex Advanced [id number]-1.65mg Tab RxNorm: 2 Tablet(s) PO daily No Start Date 08/08/2011 Inactive famotidine 20 mg tablet RxNorm: 025607 1 Tablet(s) PO QAM No Start Date 11/02/2015 Inactive cranberry extract 250 mg Tab RxNorm: 821457 2 Tablet(s) PO daily No Start Date 08/08/2011 Inactive Vitamin D3 1,000 unit capsule RxNorm: 354792 1 Capsule(s) PO daily No Start Date 08/31/2015 Inactive aspirin 81 mg Tab, Delayed Release RxNorm: 250237 1 Tablet(s) PO daily No Start Date 08/31/2015 Inactive diltiazem ER 120 mg capsule,extended release RxNorm: 869243 1 Capsule(s) PO daily patient would like 4 months at a time No Start Date 06/02/2013 Inactive omeprazole 20 mg Tab, Delayed Release RxNorm: 963735 2 Tablet(s) PO QHS No Start Date 2012 Inactive lisinopril 10 mg tablet RxNorm: 082191 1/2 Tablet(s) PO daily No Start Date 10/16/2012 Inactive Pred Forte 1 % Eye Drops RxNorm: 294288 1 Drop(s) OPH daily right eye No Start Date 12/25/2013 Inactive calcium carbonate 400 mg Chewable Tab RxNorm: 373057 1 Tablet(s) PO daily No Start Date 08/08/2011 Inactive Vesicare 10 mg tablet RxNorm: 034730 1 Tablet(s) PO QHS No Start Date 02/12/2012 Inactive Symbicort 160 mcg-4.5 mcg/actuation HFA aerosol inhaler RxNorm: 8690597 2 Puff(s) INH BID No Start Date 12/13/2017 Inactive potassium 99 mg tablet RxNorm: 1 Tablet(s) PO QPM No Start Date 12/25/2013 Inactive timolol 0.25 % Eye Drops RxNorm: 128776 1 Drop(s) OPH daily Left eye No Start Date 04/17/2012 Inactive diltiazem ER 90 mg capsule,extended release 12 hr RxNorm: 162730 1/2 Capsule(s) PO QPM No Start Date 04/28/2014 Inactive cyclobenzaprine 5 mg Tab RxNorm: 876254 1/2-1 Tablet(s) PO Q8 PRN No Start Date 12/25/2011 Inactive 1/2 - 1 tab q 8hrs prn muscle spasms Medication Administered Medication Codes Instructions Start Date Status Influenza Virus Vaccine 0.5 mL RxNorm: 04/23/2013 No longer Active Rocephin 500 mg Solution for Injection RxNorm: 809037 11/23/2011 No longer Active Immunizations Vaccine Codes [...] hypertension ICD-10: I10 ICD-9: 401.9 01/31/2018 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 11/04/2016 Thyroid Antibodies 725121 THYROGLOBULIN ANTIBODY 919 IU/mL 11/04/2016 Thyroid Antibodies 974195 THYROID PEROXIDASE (TPO) AB . 11/04/2016 Thyroid Antibodies 711590 THYROID PEROXIDASE (TPO) AB 10 IU/mL 11/04/2016 Total T3 Ord42 TT3 0.64 ng/ml 11/03/2016 Free T4 Nam213 FREE T4 1.39 ng/dL 11/02/2016 Tsh Ord6 [...] Differential Ord2 RDW 13.8 % 05/26/2015 Pt Znt9611 PT 25.0 seconds 05/26/2015 Pt Cdb4792 INR 2.4 05/26/2015 Pt Bpj0902 Low Intensity - 1.5-2.0 05/26/2015 Pt Ylt4577 Mod intensity - 2.0-3.0 05/26/2015 Pt Chh7043 Hi intensity - 3.0-4.0 05/26/2015 Uric Acid [...] Digoxin Ord9 DIGOXIN 0.6 NG/ML 05/06/2015 Pt Cwf8664 PT 23.3 seconds 05/06/2015 Pt Xyu9438 INR 2.1 05/06/2015 Pt Tbb7805 Low Intensity - 1.5-2.0 05/06/2015 Pt Apj3018 Mod intensity - 2.0-3.0 05/06/2015 Pt Nix5325 Hi intensity - 3.0-4.0 05/06/2015 Free T4 Kkz442 FREE T4 1.65 ng/dL 05/06/2015 Comp Metabolic Fqm140 NA 132 mEq/L 05/06/2015 Comp Metabolic Uen738 K 4.1 mEq/L 05/06/2015 Comp Metabolic Tyt813 CL 98 mEq/L 05/06/2015 Comp Metabolic Adq078 CO2 27.0 mEq/L 05/06/2015 Comp Metabolic Pok341 ANION GAP 11 05/06/2015 Comp Metabolic Lzx774 GLUCOSE 71 mg/dL 05/06/2015 Comp Metabolic Cjh236 Creat 0.7 mg/dL 05/06/2015 Comp Metabolic Nhj712 eGFR 82 ml/min/1.73m2 05/06/2015 Comp Metabolic Pnf229 BUN 16 mg/dL 05/06/2015 Comp Metabolic Hxf013 B/C Ratio 22.2 Ratio 05/06/2015 Comp Metabolic Zrz886 CALCIUM 9.4 mg/dL 05/06/2015 Comp Metabolic Urb267 ALK PHOS 60 U/L 05/06/2015 Comp Metabolic Mez085 AST(SGOT) 22 U/L 05/06/2015 Comp Metabolic Vwt195 ALT(SGPT) 24 U/L 05/06/2015 Comp Metabolic Cvk735 BILI T 0.8 mg/dL 05/06/2015 Comp Metabolic Kdq472 ALBUMIN 4.3 g/dL 05/06/2015 Comp Metabolic Vvc311 TPRO 7.6 g/dL 05/06/2015 Comp Metabolic Wvc574 GLOB 3.3 g/dL 05/06/2015 Comp Metabolic Ixc882 A/G Ratio 1.3 Ratio 05/06/2015 Comp Metabolic Yqh517 Osmo 264 mOsmo 05/06/2015 DIGOXIN 5759834 DIGOXIN 1.1 NG/ML 05/15/2013 PT/MC 7167215 PRO TIME 21.7 SEC 05/15/2013 PT/MC 1973712 INR MCMC 2.0 05/15/2013 CHEM 14 0954261 AST 24 U/L 04/23/2013 CHEM 14 3665135 ALT 31 IU/L 04/23/2013 CHEM 14 0593924 BUN 13 MG/DL 04/23/2013 CHEM 14 8466384 ALBUMIN 4.1 GM/DL 04/23/2013 CHEM 14 2808774 CHLORIDE 103 MMOL/L 04/23/2013 CHEM 14 2803847 BILI TOT 0.5 MG/DL 04/23/2013 CHEM 14 9447514 ALK PHOS 44 U/L 04/23/2013 CHEM 14 2195875 SODIUM 137 MMOL/L 04/23/2013 CHEM 14 1150688 CREATININE 0.61 MG/DL 04/23/2013 CHEM 14 5932163 CALCIUM 9.5 MG/DL 04/23/2013 CHEM 14 3820750 POTASSIUM 4.0 MMOL/L 04/23/2013 CHEM 14 8044084 PROT TOT 6.6 GM/DL 04/23/2013 CHEM 14 3700438 GLUCOSE 99 MG/DL 04/23/2013 CHEM 14 0134000 BICARB 27 MMOL/L 04/23/2013 CHEM 14 6006698 ANION GAP 7 MEQ/L 04/23/2013 GFR CALC 3967883 GFR AA >60 ML/MIN 04/23/2013 GFR CALC 1623294 GFR NON-AA >60 ML/MIN 04/23/2013 TSH 9982735 TSH 4.204 uIU/ML 04/23/2013 CBC 1052203 WBC 6.7 10e9/L 04/23/2013 CBC 5286653 RBC 4.19 10e12/L 04/23/2013 CBC 6111643 HGB 13.2 g/dL 04/23/2013 CBC 3447438 HCT DET 39.2 % 04/23/2013 CBC 3437272 MCV 93.6 fL 04/23/2013 CBC 3655719 MCH 31.5 pg 04/23/2013 CBC 0974234 MCHC 33.7 g/dL 04/23/2013 CBC 8069768 PLT 202 10e9/L 04/23/2013 CBC 5557361 MPV 11.4 fL 04/23/2013 CBC 6462920 YANIRA % 70.5 % 04/23/2013 CBC 7066243 LY % 19.6 % 04/23/2013 CBC 4800370 MON % 8.2 % 04/23/2013 CBC 4110660 EOS % 1.6 % 04/23/2013 CBC 2490748 BASO % 0.1 % 04/23/2013 CBC 1417194 RDW 13.7 % 04/23/2013 CBC 5950478 ABS YANIRA 4.72 10e9/L 04/23/2013 CBC 5822270 ABS LYMPH 1.31 10e9/L 04/23/2013 CBC 4490028 ABS MONO 0.55 10e9/L 04/23/2013 CBC 7455371 ABS EOS 0.11 10e9/L 04/23/2013 CBC 3989642 ABS BASO 0.01 10e9/L 04/23/2013 CBC 8936797 RDW-SD 45.7 fL 04/23/2013 PT/MC 1803389 PRO TIME 13.4 SEC 12/17/2012 PT/MC 1564502 INR MCMC 1.0 12/17/2012 PT/MC 7992853 PRO TIME 16.6 SEC 12/14/2012 PT/MC 2997193 INR MCMC 1.4 12/14/2012 PT/MC 5915501 PRO TIME 27.2 SEC 12/11/2012 PT/MC 7424123 INR MCMC 2.6 12/11/2012 DIGOXIN 1587328 DIGOXIN 2.1 NG/ML 03/08/2012 GFR CALC 8047386 GFR AA >60 ML/MIN 03/08/2012 GFR CALC 0295039 GFR NON-AA >60 ML/MIN 03/08/2012 CHEM 14 2656280 AST 16 U/L 03/08/2012 CHEM 14 5967539 ALT 14 IU/L 03/08/2012 CHEM 14 0114725 BUN 10 MG/DL 03/08/2012 CHEM 14 5028288 ALBUMIN 4.2 GM/DL 03/08/2012 CHEM 14 5938167 CHLORIDE 100 MMOL/L 03/08/2012 CHEM 14 5618541 BILI TOT 0.5 MG/DL 03/08/2012 CHEM 14 4576164 ALK PHOS 59 U/L 03/08/2012 CHEM 14 3755938 SODIUM 136 MMOL/L 03/08/2012 CHEM 14 9607125 CREATININE 0.65 MG/DL 03/08/2012 CHEM 14 4656237 CALCIUM 9.4 MG/DL 03/08/2012 CHEM 14 2364592 POTASSIUM 3.9 MMOL/L 03/08/2012 CHEM 14 5266324 PROT TOT 6.7 GM/DL 03/08/2012 CHEM 14 6518057 GLUCOSE 90 MG/DL 03/08/2012 CHEM 14 2437064 BICARB 30 MMOL/L 03/08/2012 CHEM 14 2528921 ANION GAP 6 MEQ/L 03/08/2012 CHEM 14 8014955 AST 16 U/L 11/23/2011 CHEM 14 7934699 ALT 14 IU/L 11/23/2011 CHEM 14 5289687 BUN 11 MG/DL 11/23/2011 CHEM 14 7299199 ALBUMIN 4.1 GM/DL 11/23/2011 CHEM 14 1634505 CHLORIDE 100 MMOL/L 11/23/2011 CHEM 14 7285699 BILI TOT 0.5 MG/DL 11/23/2011 CHEM 14 6548862 ALK PHOS 50 U/L 11/23/2011 CHEM 14 3861858 SODIUM 135 MMOL/L 11/23/2011 CHEM 14 3362895 CREATININE 0.57 MG/DL 11/23/2011 CHEM 14 3047309 CALCIUM 9.1 MG/DL 11/23/2011 CHEM 14 5434161 POTASSIUM 4.5 MMOL/L 11/23/2011 CHEM 14 1041489 PROT TOT 6.5 GM/DL 11/23/2011 CHEM 14 2710222 GLUCOSE 89 MG/DL 11/23/2011 CHEM 14 2721916 BICARB 28 MMOL/L 11/23/2011 CHEM 14 1985230 ANION GAP 7 MEQ/L 11/23/2011 GFR CALC 4813797 GFR AA >60 ML/MIN 11/23/2011 GFR CALC 3056183 GFR NON-AA >60 ML/MIN 11/23/2011 CBC 8407241 WBC 5.1 10e9/L 11/23/2011 CBC 4445100 RBC 4.06 10e12/L 11/23/2011 CBC 2485845 HGB 12.5 g/dL 11/23/2011 CBC 9390465 HCT DET 37.3 % 11/23/2011 CBC 5778735 MCV 91.9 fL 11/23/2011 CBC 0818961 MCH 30.8 pg 11/23/2011 CBC 3006400 MCHC 33.5 g/dL 11/23/2011 CBC 1452612 PLT 222 10e9/L 11/23/2011 CBC 5067349 MPV 10.8 fL 11/23/2011 CBC 3855272 YANIRA % 64.2 % 11/23/2011 CBC 2890051 LY % 22.3 % 11/23/2011 CBC 0497510 MON % 11.3 % 11/23/2011 CBC 5533278 EOS % 1.8 % 11/23/2011 CBC 0768924 BASO % 0.4 % 11/23/2011 CBC 1627721 RDW 13.6 % 11/23/2011 CBC 7274049 ABS YANIRA 3.27 10e9/L 11/23/2011 CBC 2785569 ABS LYMPH 1.14 10e9/L 11/23/2011 CBC 3564918 ABS MONO 0.58 10e9/L 11/23/2011 CBC 1206095 ABS EOS 0.09 10e9/L 11/23/2011 CBC 0173615 ABS BASO 0.02 10e9/L 11/23/2011 CBC 4430834 RDW-SD 44.5 fL 11/23/2011 UA 03404 Specific [place] 1.005 03/04/2011 UA 27427 PH 6 03/04/2011 UA 82979 GLUCOSE N 03/04/2011 UA 09742 Protein N 03/04/2011 UA 08749 Blood ++ 03/04/2011 UA 10219 Bilirubin N 03/04/2011 UA 75418 Ketones N 03/04/2011 UA 60806 Urobilinogen N 03/04/2011 UA 32896 Nitrite N 03/04/2011 UA 20961 Leukocytes N 03/04/2011 URINALYSIS NONAUTO W/O SCOPE 09681 Specific [place] 1.010 DateTime(Free Text in Aprima) URINALYSIS NONAUTO W/O SCOPE 75876 PH 6.5 DateTime(Free Text in Aprima) URINALYSIS NONAUTO W/O SCOPE 08259 GLUCOSE neg DateTime(Free Text in Aprima) URINALYSIS NONAUTO W/O SCOPE 79551 Protein neg DateTime(Free Text in Aprima) URINALYSIS NONAUTO W/O SCOPE 16024 Blood 3+ DateTime(Free Text in Aprima) URINALYSIS NONAUTO W/O SCOPE 51523 Bilirubin neg DateTime(Free Text in Aprima) URINALYSIS NONAUTO W/O SCOPE 20534 Ketones neg DateTime(Free Text in Aprima) URINALYSIS NONAUTO W/O SCOPE 78269 Urobilinogen neg DateTime(Free Text in Aprima) URINALYSIS NONAUTO W/O SCOPE 88101 Nitrite neg DateTime(Free Text in Aprima) URINALYSIS NONAUTO W/O SCOPE 72795 Leukocytes neg DateTime(Free Text in Aprima) URINALYSIS NONAUTO W/O SCOPE 43461 Specific [place] 1.010 DateTime(Free Text in Aprima) URINALYSIS NONAUTO W/O SCOPE 53871 PH 5 DateTime(Free Text in Aprima) URINALYSIS NONAUTO W/O SCOPE 95294 GLUCOSE neg DateTime(Free Text in Aprima) URINALYSIS NONAUTO W/O SCOPE 30561 Protein neg DateTime(Free Text in Aprima) URINALYSIS NONAUTO W/O SCOPE 54896 Blood 3+ DateTime(Free Text in Aprima) URINALYSIS NONAUTO W/O SCOPE 49829 Bilirubin neg DateTime(Free Text in Aprima) URINALYSIS NONAUTO W/O SCOPE 42385 Ketones neg DateTime(Free Text in Aprima) URINALYSIS NONAUTO W/O SCOPE 36701 Urobilinogen neg DateTime(Free Text in Aprima) URINALYSIS NONAUTO W/O SCOPE 45323 Nitrite neg DateTime(Free Text in Aprima) URINALYSIS NONAUTO W/O SCOPE 83084 Leukocytes neg DateTime(Free Text in Aprima) URINALYSIS NONAUTO W/O SCOPE 86688 Specific [place] 1.005 DateTime(Free Text in Aprima) URINALYSIS NONAUTO W/O SCOPE 54306 PH 8.5 DateTime(Free Text in Aprima) URINALYSIS NONAUTO W/O SCOPE 79037 GLUCOSE neg DateTime(Free Text in Aprima) URINALYSIS NONAUTO W/O SCOPE 29563 Protein neg DateTime(Free Text in Aprima) URINALYSIS NONAUTO W/O SCOPE 30506 Blood 1+ DateTime(Free Text in Aprima) URINALYSIS NONAUTO W/O SCOPE 39485 Bilirubin neg DateTime(Free Text in Aprima) URINALYSIS NONAUTO W/O SCOPE 74745 Ketones neg DateTime(Free Text in Aprima) URINALYSIS NONAUTO W/O SCOPE 70470 Urobilinogen neg DateTime(Free Text in Aprima) URINALYSIS NONAUTO W/O SCOPE 49482 Nitrite neg DateTime(Free Text in Aprima) URINALYSIS NONAUTO W/O SCOPE 28269 Leukocytes neg DateTime(Free Text in Aprima) URINALYSIS NONAUTO W/O SCOPE 07559 Specific [place] 1.005 DateTime(Free Text in Aprima) URINALYSIS NONAUTO W/O SCOPE 19583 PH 7 DateTime(Free Text in Aprima) URINALYSIS NONAUTO W/O SCOPE 95211 GLUCOSE neg DateTime(Free Text in Aprima) URINALYSIS NONAUTO W/O SCOPE 00579 Protein neg DateTime(Free Text in Aprima) URINALYSIS NONAUTO W/O SCOPE 67674 Blood large DateTime(Free Text in Aprima) URINALYSIS NONAUTO W/O SCOPE 29841 Bilirubin neg DateTime(Free Text in Aprima) URINALYSIS NONAUTO W/O SCOPE 35742 Ketones neg DateTime(Free Text in Aprima) URINALYSIS NONAUTO W/O SCOPE 55531 Urobilinogen 0.2 DateTime(Free Text in Aprima) URINALYSIS NONAUTO W/O SCOPE 67905 Nitrite neg DateTime(Free Text in Aprima) URINALYSIS NONAUTO W/O SCOPE 29020 Leukocytes neg DateTime(Free Text in Aprima) URINALYSIS NONAUTO W/O SCOPE 06247 Specific [place] 1.005 DateTime(Free Text in Aprima) URINALYSIS NONAUTO W/O SCOPE 11133 PH 7.5 DateTime(Free Text in Aprima) URINALYSIS NONAUTO W/O SCOPE 57823 GLUCOSE DateTime(Free Text in Aprima) URINALYSIS NONAUTO W/O SCOPE 51139 Protein trace DateTime(Free Text in Aprima) URINALYSIS NONAUTO W/O SCOPE 09394 Blood 4+ DateTime(Free Text in Aprima) URINALYSIS NONAUTO W/O SCOPE 54276 Bilirubin DateTime(Free Text in Aprima) URINALYSIS NONAUTO W/O SCOPE 07239 Ketones DateTime(Free Text in Aprima) URINALYSIS NONAUTO W/O SCOPE 30847 Urobilinogen DateTime(Free Text in Aprima) URINALYSIS NONAUTO W/O SCOPE 41698 Nitrite DateTime(Free Text in Aprima) URINALYSIS NONAUTO W/O SCOPE 43135 Leukocytes trace DateTime(Free Text in Aprima) Review [...] FLU VACC PRSV FREE INC ANTIG CPT-4: 86824 03/27/2017 PPPS, SUBSEQ VISIT CPT- 4: G0439 01/23/2017 URINALYSIS NONAUTO W/O SCOPE CPT-4: 89133 05/17/2016 ADMIN INFLUENZA VIRUS VAC CPT-4: G0008 03/24/2016 FLU VACC PRSV FREE INC ANTIG CPT-4: 58084 03/24/2016 ADMIN PNEUMOCOCCAL VACCINE SNOMED CT: 74987854 CPT-4: G0009 05/13/2015 PNEUMOCOCCAL VACC [address]: 75369467 CPT-4: 12372 05/13/2015 Pneumococcal Polysaccharide Vaccine, 23-Valent, Ad Assigned to/Mela Bledsoe CPT-4: 38347Waphbmf 07/11/2014 ADMIN PNEUMOCOCCAL VACCINE SNOMED CT: 17782653 CPT-4: G0009 07/11/2014 URINALYSIS NONAUTO W/O SCOPE CPT-4: 79538 05/14/2014 URINALYSIS NONAUTO W/O SCOPE CPT-4: 65338 05/06/2014 URINALYSIS NONAUTO W/O SCOPE CPT-4: 11292 04/29/2014 ADMIN INFLUENZA VIRUS VAC CPT-4: G0008 03/20/2014 FLU VAC NO PRSV 4 SCOTT 3 YRS+ Assigned to/Mela Bledsoe CPT-4: [id number] 03/20/2014 URINALYSIS NONAUTO W/O SCOPE CPT-4: 43404 07/29/2013 URINALYSIS NONAUTO W/O SCOPE CPT-4: 87476 07/01/2013 URINALYSIS NONAUTO W/O SCOPE CPT-4: 61264 06/20/2013 ROUTINE VENIPUNCTURE CPT- 4: 02706 05/15/2013 ROUTINE VENIPUNCTURE CPT- 4: 24537 04/23/2013 ADMIN INFLUENZA VIRUS VAC CPT-4: G0008 04/23/2013 FLULAVAL VACC, 3 YRS & >, IM CPT-4: Q2036 04/23/2013 ROUTINE VENIPUNCTURE CPT- 4: 70992 12/17/2012 ROUTINE VENIPUNCTURE CPT- 4: 91834 12/14/2012 ROUTINE VENIPUNCTURE CPT- 4: 42881 12/11/2012 PRESCRIP TRANSMIT VIA ERX SY CPT-4: G8553 12/11/2012 PRESCRIP TRANSMIT VIA ERX SY CPT-4: G8553 10/30/2012 URINALYSIS NONAUTO W/O SCOPE CPT-4: 58689 09/13/2012 ADMIN INFLUENZA VIRUS VAC CPT-4: G0008 04/18/2012 FLULAVAL VACC, 3 YRS & >, IM CPT-4: Q2036 04/18/2012 URINALYSIS NONAUTO W/O SCOPE CPT-4: 89751 03/13/2012 ROUTINE VENIPUNCTURE CPT- 4: 06591 03/08/2012 URINALYSIS NONAUTO W/O SCOPE CPT-4: 44488 02/13/2012 PRESCRIP TRANSMIT VIA ERX SY CPT-4: G8553 02/13/2012 ROCEPHIN, PER 250 MG CPT- 4: J0696 11/23/2011 ROUTINE VENIPUNCTURE CPT- 4: 97124 11/23/2011 URINALYSIS NONAUTO W/O SCOPE CPT-4: 75238 11/23/2011 PRESCRIP TRANSMIT VIA ERX SY CPT-4: G8553 11/23/2011 REMOVE IMPACTED EAR WAX UNI CPT-4: 62355 10/17/2011 PRESCRIP TRANSMIT VIA ERX SY CPT-4: G8553 10/03/2011 PRESCRIP TRANSMIT VIA ERX SY CPT-4: G8553 08/08/2011 URINALYSIS NONAUTO W/O SCOPE CPT-4: 51526 03/15/2011 URINALYSIS NONAUTO W/O SCOPE CPT-4: 26760 03/04/2011 THER/PROPH/DIAG INJ SC/IM CPT-4: 00560 03/04/2011 ROCEPHIN, PER 250 MG CPT- 4: J0696 03/04/2011 Vital Signs Date Vital 06/04/2018 Blood Pressure 1: 124/72 Code: 8480-6 BMI: 21.3 Code: 06695-0 Heart Rate 1: 98 bpm Height: 5' Weight: 109 lbs 01/31/2018 Blood Pressure 1: 116/68 Code: 8480-6 BMI: 21.1 Code: 19306-2 Heart Rate 1: 89 bpm Height: 5' SpO2: 98% Weight: 108 lbs 01/17/2018 Blood Pressure 1: 134/74 Code: 8480-6 BMI: 21.3 Code: 18894-7 Heart Rate 1: 74 bpm Height: 5' SpO2: 96% Waist Measure (cm): 71 cm Weight: 109 lbs 12/14/2017 Blood Pressure 1: 150/78 Code: 8480-6 BMI: 21.5 Code: 28047-9 Heart Rate 1: 77 bpm Height: 5' SpO2: 98% Temperature: 36.7 (C) / 98.1 (F) Weight: 110 lbs 12/07/2017 Blood Pressure 1: 134/70 Code: 8480-6 Heart Rate 1: 76 bpm Height: SpO2: 98% Temperature: 36.8 (C) / 98.2 (F) Weight: 11/14/2017 Blood Pressure 1: 152/84 Code: 8480-6 BMI: 21.9 Code: 55388-7 Heart Rate 1: 95 bpm Height: 5' SpO2: 93% Weight: 112 lbs 03/27/2017 Blood Pressure 1: 122/70 Code: 8480-6 BMI: 21.3 Code: 41284-4 Heart Rate 1: 75 bpm Height: 5' Weight: 109 lbs 01/23/2017 BMI: 21.5 Code: 34557-2 Height: 5' Weight: 110 lbs 01/19/2017 Blood Pressure 1: 112/60 Code: 8480-6 BMI: 21.5 Code: 95716-7 Heart Rate 1: 54 bpm Height: 5' SpO2: 97% Weight: 110 lbs 11/29/2016 Blood Pressure 1: 126/68 Code: 8480-6 Height: 5' Weight: 11/23/2016 Blood Pressure 1: 130/72 Code: 8480-6 BMI: 21.9 Code: 97762-3 Heart Rate 1: 48 bpm Height: 5' SpO2: 97% Temperature: 36.7 (C) / 98.0 (F) Weight: 112 lbs 11/21/2016 Blood Pressure 1: 134/76 Code: 8480-6 BMI: 21.9 Code: 75928-2 Heart Rate 1: 41 bpm Height: 5' SpO2: 94% Temperature: 36.9 (C) / 98.4 (F) Weight: 112 lbs 11/08/2016 Blood Pressure 1: 126/74 Code: 8480-6 Heart Rate 1: 82 bpm Height: 5' SpO2: 94% Weight: 11/02/2016 Blood Pressure 1: 112/66 Code: 8480-6 Heart Rate 1: 72 bpm Height: 5' SpO2: 95% Weight: 10/27/2016 Blood Pressure 1: 130/64 Code: 8480-6 BMI: 21.7 Code: 15251-1 Heart Rate 1: 81 bpm Height: 5' SpO2: 96% Weight: 111 lbs 08/31/2016 Blood Pressure 1: 132/72 Code: 8480-6 BMI: 22.5 Code: 25110-9 Heart Rate 1: 66 bpm Height: 5' Weight: 115 lbs 07/27/2016 Blood Pressure 1: 166/74 Code: 8480-6 BMI: 23.2 Code: 48260-4 Heart Rate 1: 48 bpm Height: 5' SpO2: 90% Temperature: 36.8 (C) / 98.2 (F) Weight: 119 lbs 06/23/2016 Blood Pressure 1: 128/70 Code: 8480-6 BMI: 22.3 Code: 67156-9 Heart Rate 1: 75 bpm Height: 5' SpO2: 97% Weight: 114 lbs 06/09/2016 BMI: 22.7 Code: 17099-6 Heart Rate 1: 73 bpm Height: 5' SpO2: 97% Weight: 116 lbs 05/25/2016 Blood Pressure 1: 138/62 Code: 8480-6 BMI: 22.8 Code: 45390-4 Heart Rate 1: 76 bpm Height: 5' Weight: 117 lbs 05/17/2016 Blood Pressure 1: 116/70 Code: 8480-6 BMI: 22.8 Code: 58678-0 Heart Rate 1: 74 bpm Height: 5' SpO2: 94% Weight: 117 lbs 03/24/2016 Blood Pressure 1: 154/78 Code: 8480-6 BMI: 22.5 Code: 56968-2 Heart Rate 1: 78 bpm Height: 5' SpO2: 97% Weight: 115 lbs 02/02/2016 Blood Pressure 1: 132/70 Code: 8480-6 BMI: 22.3 Code: 46106-7 Heart Rate 1: 74 bpm Height: 5' SpO2: 94% Weight: 114 lbs 2016 Blood Pressure 1: 120/62 Code: 8480-6 BMI: 22.0 Code: 17575-1 Heart Rate 1: 68 bpm Height: 5' Weight: 112 lbs 8 oz 12/21/2015 Blood Pressure 1: 122/82 Code: 8480-6 BMI: 21.9 Code: 52908-5 Heart Rate 1: 83 bpm Height: 5' SpO2: 93% Temperature: 37.1 (C) / 98.7 (F) Weight: 112 lbs 11/03/2015 Blood Pressure 1: 122/72 Code: 8480-6 BMI: 22.4 Code: 80911-4 Heart Rate 1: 62 bpm Height: 5' Weight: 114 lbs 8 oz 10/19/2015 Blood Pressure 1: 138/62 Code: 8480-6 BMI: 21.1 Code: 87275-4 Heart Rate 1: 79 bpm Height: 5' Weight: 108 lbs 10/13/2015 Blood Pressure 1: 120/62 Code: 8480-6 BMI: 21.0 Code: 73128-1 Heart Rate 1: 76 bpm Height: 5' SpO2: 98% Weight: 108 lbs 09/29/2015 Blood Pressure 1: 130/70 Code: 8480-6 BMI: 20.2 Code: 70518-6 Heart Rate 1: 72 bpm Height: 5' Weight: 104 lbs 09/15/2015 Blood Pressure 1: 128/78 Code: 8480-6 BMI: 19.9 Code: 89159-6 Heart Rate 1: 72 bpm Height: 5' Weight: 102 lbs 8 oz 09/01/2015 Blood Pressure 1: 128/68 Code: 8480-6 BMI: 19.8 Code: 06165-1 Height: 5' Weight: 102 lbs 05/26/2015 Blood Pressure 1: 140/68 Code: 8480-6 BMI: 19.0 Code: 40064-9 Heart Rate 1: 70 bpm Height: 5' Weight: 98 lbs 05/21/2015 Blood Pressure 1: 140/78 Code: 8480-6 BMI: 19.2 Code: 83816-5 Heart Rate 1: 85 bpm Height: 5' SpO2: 95% Weight: 99 lbs 05/07/2015 Blood Pressure 1: 140/82 Code: 8480-6 BMI: 19.0 Code: 14826-8 Heart Rate 1: 76 bpm Height: 5' Weight: 98 lbs 03/23/2015 Blood Pressure 1: 142/60 Code: 8480-6 BMI: 18.6 Code: 50787-8 Heart Rate 1: 52 bpm Height: 5' Weight: 96 lbs 03/09/2015 Blood Pressure 1: 138/74 Code: 8480-6 BMI: 18.8 Code: 98459-4 Heart Rate 1: 60 bpm Height: 5' Weight: 97 lbs 10/30/2014 Blood Pressure 1: 112/82 Code: 8480-6 BMI: 19.0 Code: 53610-0 Heart Rate 1: 64 bpm Height: 5' Weight: 98 lbs 07/11/2014 Blood Pressure 1: 146/70 Code: 8480-6 BMI: 18.8 Code: 23732-2 Heart Rate 1: 68 bpm Height: 5' Weight: 97 lbs 05/20/2014 Blood Pressure 1: 142/76 Code: 8480-6 BMI: 18.6 Code: 77310-2 Heart Rate 1: 78 bpm Height: 5' Weight: 96 lbs 04/29/2014 Blood Pressure 1: 138/62 Code: 8480-6 BMI: 18.3 Code: 67413-5 Heart Rate 1: 80 bpm Height: 5' Weight: 94 lbs 8 oz 03/20/2014 Blood Pressure 1: 142/68 Code: 8480-6 BMI: 18.6 Code: 93656-4 Heart Rate 1: 96 bpm Height: 5' Weight: 96 lbs 03/05/2014 Blood Pressure 1: 122/72 Code: 8480-6 BMI: 18.8 Code: 82304-6 Heart Rate 1: 82 bpm Height: 5' SpO2: 97% Weight: 97 lbs 01/29/2014 Blood Pressure 1: 124/78 Code: 8480-6 BMI: 18.8 Code: 94097-6 Heart Rate 1: 60 bpm Height: 5' Weight: 97 lbs 01/14/2014 Blood Pressure 1: 120/58 Code: 8480-6 BMI: 19.2 Code: 28895-7 Heart Rate 1: 56 bpm Height: 5' Temperature: 36.9 (C) / 98.4 (F) Weight: 99 lbs 12/25/2013 Blood Pressure 1: 118/78 Code: 8480-6 BMI: 19.2 Code: 92817-2 Heart Rate 1: 68 bpm Height: 5' Weight: 99 lbs 11/27/2013 Blood Pressure 1: 102/68 Code: 8480-6 BMI: 19.4 Code: 48503-7 Heart Rate 1: 56 bpm Height: 5' Weight: 100 lbs 09/12/2013 Blood Pressure 1: 142/62 Code: 8480-6 BMI: 19.7 Code: 37976-1 Heart Rate 1: 72 bpm Height: 5'1" Weight: 104 lbs 08/15/2013 Blood Pressure 1: 152/92 Code: 8480-6 Heart Rate 1: 96 bpm Weight: 102 lbs 08/01/2013 Blood Pressure 1: 122/68 Code: 8480-6 BMI: 19.1 Code: 45157-5 Heart Rate 1: 68 bpm Height: 5'1" Weight: 101 lbs 07/01/2013 Blood Pressure 1: 130/72 Code: 8480-6 BMI: 19.5 Code: 90690-5 Heart Rate 1: 80 bpm Height: 5'1" Temperature: 36.1 (C) / 97.0 (F) Weight: 103 lbs 05/29/2013 Blood Pressure 1: 126/72 Code: 8480-6 BMI: 19.3 Code: 90765-2 Heart Rate 1: 80 bpm Height: 5'1" Weight: 102 lbs 05/15/2013 Blood Pressure 1: 156/74 Code: 8480-6 BMI: 19.3 Code: 24234-0 Heart Rate 1: 88 bpm Height: 5'1" Weight: 102 lbs 04/23/2013 Blood Pressure 1: 140/82 Code: 8480-6 BMI: 19.3 Code: 14825-1 Heart Rate 1: 72 bpm Height: 5'1" Weight: 102 lbs 03/21/2013 Blood Pressure 1: 142/74 Code: 8480-6 Heart Rate 1: 92 bpm Weight: 103 lbs 01/16/2013 Blood Pressure 1: 120/56 Code: 8480-6 BMI: 20.0 Code: 47385-1 Heart Rate 1: 72 bpm Height: 5'1" Weight: 106 lbs 12/19/2012 Blood Pressure 1: 118/66 Code: 8480-6 Heart Rate 1: 84 bpm Weight: 12/10/2012 Blood Pressure 1: 132/62 Code: 8480-6 Heart Rate 1: 64 bpm Weight: 103 lbs 10/30/2012 Blood Pressure 1: 122/66 Code: 8480-6 BMI: 19.9 Code: 31550-6 Heart Rate 1: 61 bpm Height: 5'1" [...] 1: 118/72 Code: 8480-6 BMI: 21.0 Code: 93886-4 Heart Rate 1: 66 bpm Height: 5'1" Respiratory Rate: 16 bpm Weight: 111 lbs 2012 Blood Pressure 1: 122/62 Code: 8480-6 Heart Rate 1: 68 bpm Weight: 110 lbs 12/01/2011 Blood Pressure 1: 150/60 Code: 8480-6 BMI: 20.8 Code: 76363-6 Heart Rate 1: 60 bpm Height: 5'1" Respiratory Rate: 16 bpm Weight: 110 lbs 11/23/2011 Blood Pressure 1: 170/68 Code: 8480-6 BMI: 21.1 Code: 37714-4 Heart Rate 1: 64 bpm Height: 5'1" Temperature: 36.3 (C) / 97.3 (F) Weight: 111 lbs 8 oz 10/17/2011 Blood Pressure 1: 148/62 Code: 8480-6 Heart Rate 1: 74 bpm 10/03/2011 Blood Pressure 1: 102/48 Code: 8480-6 BMI: 21.4 Code: 97518-3 Heart Rate 1: 76 bpm Height: 5'1" Respiratory Rate: 16 bpm Weight: 113 lbs 08/08/2011 Blood Pressure 1: 128/60 Code: 8480-6 Heart Rate 1: 80 bpm Respiratory Rate: 16 bpm Weight: 113 lbs 05/09/2011 Blood Pressure 1: 130/62 Code: 8480-6 BMI: 20.7 Code: 04813-5 Heart Rate 1: 64 bpm Height: 5'1" Respiratory Rate: 16 bpm Weight: 109 lbs 8 oz 03/29/2011 Blood Pressure 1: 120/62 Code: 8480-6 BMI: 20.2 Code: 32058-8 Heart Rate 1: 66 bpm Height: 5'1" Respiratory Rate: 12 bpm Weight: 107 lbs 03/15/2011 Blood Pressure 1: 120/64 Code: 8480-6 BMI: 19.8 Code: 70199-9 Heart Rate 1: 76 bpm Height: 5'1" [...] data Encounters Encounter Performer Location Codes Date [id number]) 59178 EST. PATIENT, LEVEL IV Diagnosis: Essential (primary) hypertension[ICD10: I10] Diagnosis: Atrophy of thyroid (acquired)[ICD10: E03.4] Diagnosis: Gastro-esophageal reflux disease without esophagitis[ICD10: K21.9] Karma Bahena MD, [facility] CPT-4: 21740 06/04/2018 ([id number]) 94144 EST. 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 PATIENT, LEVEL IV Diagnosis: Essential (primary) hypertension[ICD10: I10] Diagnosis: Chronic atrial fibrillation[ICD10: I48.2] Diagnosis: Allergic rhinitis due to pollen[ICD10: J30.1] Diagnosis: Cough[ICD10: R05] Karma Bahena MD, [facility] CPT-4: 19508 12/14/2017 91573 EST. PATIENT, LEVEL IV Diagnosis: Other allergic rhinitis[ICD10: J30.89] Katharine Bahena MD, [facility] CPT- 4: 89780 12/07/2017 ([id number]) 77482 EST. PATIENT, LEVEL IV Diagnosis: Essential (primary) hypertension[ICD10: I10] Diagnosis: Chronic atrial fibrillation[ICD10: I48.2] Diagnosis: Atrophy of thyroid (acquired)[ICD10: E03.4] Karma Bahena MD, [facility] CPT-4: 00032 11/14/2017 ([id number]) 87874 EST. PATIENT, LEVEL IV Diagnosis: Essential (primary) hypertension[ICD10: I10] Diagnosis: Localized edema[ICD10: R60.0] Diagnosis: Encounter for immunization[ICD10: Z23] Diagnosis: Age-related osteoporosis without current pathological fracture[ICD10: M81.0] Karma Bahena MD [facility] CPT-4: 72997 03/27/2017 ([id number]) 38956 EST. PATIENT, LEVEL IV Diagnosis: Essential (primary) hypertension[ICD10: I10] Diagnosis: Chronic atrial fibrillation[ICD10: I48.2] Diagnosis: Dysphonia[ICD10: R49.0] Karma Bahena MD [facility] CPT-4: 07449 01/19/2017 ([id number]) Miscellaneous no charge Diagnosis: Cough[ICD10: R05] Diagnosis: Acute upper respiratory infection, unspecified[ICD10: J06.9] Laura Bahena MD, [facility] CPT-4: 97368 11/29/2016 54870 EST. PATIENT, LEVEL III Diagnosis: Cough[ICD10: R05] Diagnosis: Acute laryngopharyngitis[ICD10: J06.0] Katharine Bahena MD, [facility] CPT- 4: 16849 11/23/2016 ([id number]) 45993 EST. PATIENT, LEVEL III Diagnosis: Acute laryngopharyngitis[ICD10: J06.0] Laura Bahena MD [facility] CPT-4: 30396 11/21/2016 ([id number]) Miscellaneous no charge Diagnosis: Laceration without foreign body of right forearm, subsequent encounter[ICD10: S51.811D] Karma Bahena MD [facility] CPT-4: 04657 11/17/2016 ([id number]) Miscellaneous no charge Diagnosis: Laceration without foreign body of right forearm, subsequent encounter[ICD10: S51.811D] Karma Bahena MD [facility] CPT-4: 72102 11/14/2016 ([id number]) Miscellaneous no charge Diagnosis: Laceration without foreign body of right forearm, subsequent encounter[ICD10: S51.811D] Karma Bahena MD [facility] CPT-4: 37476 11/11/2016 ([id number]) Miscellaneous no charge Diagnosis: Laceration without foreign body of right forearm, subsequent encounter[ICD10: S51.811D] Karma Bahena MD, [facility] CPT-4: 95252 11/10/2016 ([id number]) 74004 EST. PATIENT, LEVEL II Diagnosis: Laceration without foreign body of right forearm, subsequent encounter[ICD10: S51.811D] Karma Bahena MD [facility] CPT-4: 41854 11/08/2016 ([id number]) 08579 EST. PATIENT, LEVEL IV Diagnosis: Atrophy of thyroid (acquired)[ICD10: E03.4] Diagnosis: Chronic atrial fibrillation[ICD10: I48.2] Diagnosis: Laceration without foreign body of right forearm, subsequent encounter[ICD10: S51.811D] Karma Bahena MD [facility] CPT-4: 16454 11/02/2016 ([id number]) 10730 EST. PATIENT, LEVEL III Diagnosis: Laceration without foreign body of right forearm, initial encounter[ICD10: S51.811A] Laura Bahena MD, [facility] CPT-4: 65621 10/27/2016 ([id number]) 60906 EST. PATIENT, LEVEL IV Diagnosis: Essential (primary) hypertension[ICD10: I10] Diagnosis: Chronic atrial fibrillation[ICD10: I48.2] Karma Bahena MD [facility] CPT-4: 75065 08/31/2016 ([id number]) 51291 EST. PATIENT, LEVEL IV Diagnosis: Localized edema[ICD10: R60.0] Diagnosis: Essential (primary) hypertension[ICD10: I10] Diagnosis: Abdominal distension (gaseous)[ICD10: R14.0] Karma Bahena MD, [facility] CPT-4: 98280 07/27/2016 ([id number]) 21632 EST. PATIENT, LEVEL IV Diagnosis: Essential (primary) hypertension[ICD10: I10] Diagnosis: Chronic atrial fibrillation[ICD10: I48.2] Diagnosis: Localized edema[ICD10: R60.0] Karma Bahena MD, [facility] CPT-4: 09841 06/23/2016 ([id number]) 17601 EST. PATIENT, LEVEL III Diagnosis: Localized edema[ICD10: R60.0] Karma Bahena MD, [facility] CPT-4: 96881 06/09/2016 ([id number]) 49943 EST. PATIENT, LEVEL III Diagnosis: Irritable bowel syndrome without diarrhea[ICD10: K58.9] Diagnosis: Pruritus ani[ICD10: L29.0] Karma Bahena MD [facility] CPT-4: 18739 05/25/2016 ([id number]) 74486 EST. PATIENT, LEVEL III Diagnosis: Abdominal distension (gaseous)[ICD10: R14.0] Diagnosis: Encounter for screening mammogram for malignant neoplasm of breast[ICD10: Z12.31] Karma Bahena MD [facility] CPT-4: 92193 05/17/2016 ([id number]) 59599 EST. PATIENT, LEVEL IV Diagnosis: Essential (primary) hypertension[ICD10: I10] Diagnosis: First degree hemorrhoids[ICD10: K64.0] Diagnosis: Encounter for immunization[ICD10: Z23] Karma Bahena MD [facility] CPT-4: 05088 03/24/2016 ([id number]) 63088 EST. 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 PATIENT, LEVEL III Diagnosis: Acute anal fissure[ICD10: K60.0] Karma Bahena MD, [facility] CPT-4: 72434 2016 ([id number]) 80169 EST. PATIENT, LEVEL III Diagnosis: Allergic rhinitis due to pollen[ICD10: J30.1] Diagnosis: Acute upper respiratory infection, unspecified[ICD10: J06.9] Laura Bahena MD, [facility] CPT-4: 47724 12/21/2015 ([id number]) 52763 EST. PATIENT, LEVEL III Diagnosis: Essential (primary) hypertension[ICD10: I10] Diagnosis: Chronic atrial fibrillation[ICD10: I48.2] Karma Bahena MD, [facility] CPT-4: 18989 11/03/2015 ([id number]) Miscellaneous no charge Diagnosis: Impacted cerumen, right ear[ICD10: H61.21] Katharine Bahena MD, [facility] CPT-4: 32553 10/19/2015 63453 EST. PATIENT, LEVEL IV Diagnosis: Impacted cerumen, right ear[ICD10: H61.21] Diagnosis: Other allergic rhinitis[ICD10: J30.89] Katharine Bahena MD, [facility] CPT- 4: 10852 10/13/2015 ([id number]) 35198 EST. PATIENT, LEVEL IV Diagnosis: Essential (primary) hypertension[ICD10: I10] Diagnosis: Chronic atrial fibrillation[ICD10: I48.2] Diagnosis: Urge incontinence[ICD10: N39.41] Diagnosis: Age-related osteoporosis without current pathological fracture[ICD10: M81.0] Karma Bahena MD [facility] CPT-4: 71138 09/29/2015 ([id number]) 09901 EST. PATIENT, LEVEL IV Diagnosis: Essential (primary) hypertension[ICD10: I10] Diagnosis: Chronic atrial fibrillation[ICD10: I48.2] Diagnosis: Irritable bowel syndrome without diarrhea[ICD10: K58.9] Diagnosis: Unspecified hemorrhoids[ICD10: K64.9] Karma Bahena MD, [facility] CPT-4: 16351 09/15/2015 ([id number]) 83405 EST. 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 PATIENT, LEVEL III Diagnosis: Hematuria, unspecified[ICD10: R31.9] Diagnosis: Other urethritis[ICD10: N34.2] Diagnosis: Other specified noninflammatory disorders of vagina[ICD10: N89.8] Karma Bahena MD, [facility] CPT-4: 07958 05/26/2015 74668 EST. PATIENT, LEVEL IV Diagnosis: Gout, unspecified[ICD10: M10.9] Karma Bahena MD, [facility] CPT-4: 31942 05/21/2015 ([id number]) 18303 EST. PATIENT, LEVEL IV Diagnosis: Chronic atrial fibrillation[ICD10: I48.2] Diagnosis: Irritable bowel syndrome without diarrhea[ICD10: K58.9] Diagnosis: Cystocele, unspecified[ICD10: N81.10] Diagnosis: Urge incontinence[ICD10: N39.41] Diagnosis: Fecal smearing[ICD10: R15.1] Diagnosis: Hypothyroidism, unspecified[ICD10: E03.9] Karma Bahena MD, [facility] CPT-4: 88280 05/07/2015 ([id number]) 05417 EST. PATIENT, LEVEL III Diagnosis: Atrial fibrillation[ICD9: 427.31] Diagnosis: Bloating[ICD9: 787.3] Karma Bahena MD, [facility] CPT-4: 64070 03/23/2015 ([id number]) 95139 EST. PATIENT, LEVEL IV Diagnosis: Abdominal pain[ICD9: 789.00] Diagnosis: Atrial fibrillation[ICD9: 427.31] Diagnosis: ENCNTR LONG-ANTICOAG USE[ICD9: V58.61] Karma Bahena MD, [facility] CPT-4: 15496 03/09/2015 ([id number]) 50420 EST. PATIENT, LEVEL IV Diagnosis: HEMATURIA NOS[ICD9: 599.70] Diagnosis: Atrial fibrillation[ICD9: 427.31] Diagnosis: HYPOTHYROIDISM[ICD9: 244.9] Karma Bahena MD, [facility] CPT-4: 91071 10/30/2014 ([id number]) 60120 EST. PATIENT, LEVEL IV Diagnosis: Atrial fibrillation[ICD9: 427.31] Diagnosis: ALLERGIC RHINITIS[ICD9: 477.9] Diagnosis: Need for pneumococcal vaccine[ICD9: V03.82] Diagnosis: Osteoarthritis[ICD9: 715.90] Diagnosis: Osteoporosis[ICD9: 733.00] Karma Bahena MD, [facility] CPT-4: 58133 07/11/2014 ([id number]) 01568 EST. PATIENT, LEVEL III Diagnosis: Urge incontinence[ICD9: 788.31] Diagnosis: Dysuria[ICD9: 788.1] aKrma Bahena MD, [facility] CPT-4: 40115 05/20/2014 ([id number]) 45961 EST. PATIENT, LEVEL IV Diagnosis: Atrial fibrillation[ICD9: 427.31] Diagnosis: Hematuria[ICD9: 599.70] Diagnosis: Dysuria[ICD9: 788.1] Diagnosis: ESSENTIAL HYPERTENSION[ICD9: 401.9] Karma Bahena MD, [facility] CPT- 4: 59031 04/29/2014 ([id number]) 72154 EST. PATIENT, LEVEL IV Diagnosis: ESSENTIAL HYPERTENSION[ICD9: 401.9] Diagnosis: ALLERGIC RHINITIS[ICD9: 477.9] Karma Bahena MD, [facility] CPT-4: 20880 03/20/2014 ([id number]) 32415 EST. PATIENT, LEVEL IV Diagnosis: ESSENTIAL HYPERTENSION[ICD9: 401.9] Diagnosis: ATRIAL FIBRILLATION[ICD9: 427.31] Diagnosis: Irritable bowel[ICD9: 564.1] Karma Bahena MD, [facility] CPT-4: 77095 03/05/2014 ([id number]) 15664 EST. PATIENT, LEVEL IV Diagnosis: Esophageal reflux[ICD9: 530.81] Diagnosis: DIARRHEA[ICD9: 787.91] Diagnosis: ABDOM PAIN NOS SITE[ICD9: 789.00] Karma Bahena MD, [facility] CPT- 4: 50523 01/29/2014 ([id number]) 91288 EST. PATIENT, LEVEL III Diagnosis: Irritable bowel[ICD9: 564.1] Diagnosis: DIARRHEA[ICD9: 787.91] Laura Bahena MD, [facility] CPT-4: 73729 01/14/2014 ([id number]) 40472 EST. PATIENT, LEVEL IV Diagnosis: ESSENTIAL HYPERTENSION[ICD9: 401.9] Diagnosis: ATRIAL FIBRILLATION[ICD9: 427.31] Diagnosis: URGE INCONTINENCE[ICD9: 788.31] Diagnosis: MALAISE AND FATIGUE[ICD9: 780.79] Diagnosis: Dyspnea[ICD9: 786.09] Karma Bahena MD [facility] CPT-4: 72881 12/25/2013 ([id number]) 49465 EST. PATIENT, LEVEL IV Diagnosis: ESSENTIAL HYPERTENSION[SNOMED: 93260320] Diagnosis: ATRIAL FIBRILLATION[ICD9: 427.31] Diagnosis: Abdominal pain[ICD9: 789.00] Diagnosis: ESOPHAGEAL REFLUX[ICD9: 530.81] Karma Bahena MD [facility] CPT-4: 65122 11/27/2013 ([id number]) 84680 EST. PATIENT, LEVEL IV Diagnosis: ESSENTIAL HYPERTENSION[SNOMED: 69335929] Diagnosis: ATRIAL FIBRILLATION[ICD9: 427.31] Diagnosis: Chronic osteoarthritis[ICD9: 715.90] Karma Bahena MD [facility] CPT- 4: 35087 09/12/2013 ([id number]) 82482 EST. PATIENT, LEVEL III Diagnosis: ESSENTIAL HYPERTENSION[SNOMED: 15399691] Diagnosis: Bruising[ICD9: 924.9] Diagnosis: ENCNTR LONG-RX USE NEC[ICD9: V58.69] Karma Bahena MD [facility] CPT- 4: 98482 08/15/2013 ([id number]) 83955 EST. PATIENT, LEVEL IV Diagnosis: ESSENTIAL HYPERTENSION[SNOMED: 59329808] Diagnosis: Hematuria[ICD9: 599.70] Diagnosis: Dysuria[ICD9: 788.1] Karma Bahena MD [facility] CPT-4: 84244 08/01/2013 ([id number]) 88096 EST. PATIENT, LEVEL III Diagnosis: UTI[ICD9: 599.0] Diagnosis: Hematuria[ICD9: 599.70] Laura Bahena MD [facility] CPT-4: 48499 07/01/2013 ([id number]) 92057 EST. PATIENT, LEVEL III Diagnosis: ATRIAL FIBRILLATION[ICD9: 427.31] Diagnosis: ESSENTIAL HYPERTENSION[SNOMED: 34059504] Karma Bahena MD [facility] CPT-4: 40879 05/29/2013 ([id number]) 40683 EST. PATIENT, LEVEL IV Diagnosis: Atrial fibrillation[ICD9: 427.31] Diagnosis: Encounter for monitoring digoxin therapy[ICD9: V58.83] Diagnosis: ESSENTIAL HYPERTENSION[SNOMED: 05526047] Karma Bahena MD, [facility] CPT-4: 84687 05/15/2013 ([id number]) 62849 EST. PATIENT, LEVEL IV Diagnosis: ESSENTIAL HYPERTENSION[SNOMED: 23280687] Diagnosis: ATRIAL FIBRILLATION[ICD9: 427.31] Diagnosis: PALPITATIONS[ICD9: 785.1] Diagnosis: Dizziness and giddiness[ICD9: 780.4] Karma Bahena MD [facility] CPT- 4: 85505 04/23/2013 ([id number]) 25645 EST. PATIENT, LEVEL III Diagnosis: OTHER CONSTIPATION[ICD9: 564.09] Diagnosis: ABDOM PAIN NOS SITE[ICD9: 789.00] Laura Bahena MD, [facility] CPT- 4: 26862 03/21/2013 ([id number]) 86550 EST. PATIENT, LEVEL IV Diagnosis: ESSENTIAL HYPERTENSION[SNOMED: 99888372] Diagnosis: Atrial fibrillation[ICD9: 427.31] Karma Bahena MD, [facility] CPT- 4: 41659 01/16/2013 ([id number]) Miscellaneous no charge Diagnosis: CELLULITIS OF HAND[ICD9: 682.4] Karma Bahena MD [facility] CPT-4: 49038 12/19/2012 ([id number]) Miscellaneous no charge Diagnosis: ENCOUNTER FOR THERAPEUTIC DRUG MONITORING[ICD9: V58.83] Diagnosis: CELLULITIS OF HAND[ICD9: 682.4] Karma Bahena MD [facility] CPT-4: 14546 12/14/2012 Miscellaneous no charge Diagnosis: CELLULITIS OF HAND[ICD9: 682.4] Karma Bahena MD, [facility] CPT-4: 65219 12/12/2012 79591 EST. PATIENT, LEVEL II Diagnosis: CELLULITIS OF HAND[ICD9: 682.4] Diagnosis: ENCNTR LONG-RX USE NEC[ICD9: V58.69] Diagnosis: LONG-TERM USE ANTICOAGUL[ICD9: V58.61] Karma Bahena MD, [facility] CPT-4: 95493 12/11/2012 [id number]) 10103 EST. PATIENT, LEVEL III Diagnosis: CELLULITIS OF HAND[ICD9: 682.4] [facility] CPT-4: 44468 12/10/2012 ([id number]) 08194 EST. PATIENT, LEVEL IV Diagnosis: Elevated digoxin level[ICD9: 796.0] Diagnosis: ATRIAL FIBRILLATION[ICD9: 427.31] Diagnosis: Inflammatory arthritis[ICD9: 714.9] PARVEEN Freitas MD CPT- 4: 53722 10/30/2012 ([id number]) 88452 EST. PATIENT, LEVEL IV Diagnosis: Atrial fibrillation[ICD9: 427.31] Diagnosis: Anticoagulant long-term use[ICD9: V58.61] Diagnosis: ESSENTIAL HYPERTENSION[SNOMED: 26537255] [facility] CPT-4: 60564 08/08/2012 ([id number]) 71746 EST. PATIENT, LEVEL IV Diagnosis: ABDOM PAIN NOS SITE[ICD9: 789.00] Diagnosis: Constipation - functional[ICD9: 564.09] Diagnosis: EDEMA[ICD9: 782.3] Diagnosis: ATRIAL FIBRILLATION[ICD9: 427.31] [facility] CPT- 4: 96723 07/11/2012 ([id number]) 77838 EST. PATIENT, LEVEL III Diagnosis: Cystocele[ICD9: 618.01] Diagnosis: Rectocele[ICD9: 618.04] [facility] CPT-4: 07460 05/08/2012 ([id number]) 59489 EST. 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 PATIENT, LEVEL IV Diagnosis: ATRIAL FIBRILLATION[ICD9: 427.31] Diagnosis: URGE INCONTINENCE[ICD9: 788.31] Diagnosis: MALAISE AND FATIGUE[ICD9: 780.79] Diagnosis: Dyspnea[ICD9: 786.09] Karma Bahena MD [facility] CPT-4: 05281 02/20/2012 35560 EST. PATIENT, LEVEL IV Diagnosis: Hematuria[ICD9: 599.70] Diagnosis: Vaginal yeast infection[ICD9: 112.1] Diagnosis: ATRIAL FIBRILLATION[ICD9: 427.31] Laura Bahena MD [facility] CPT- 4: 57387 02/13/2012 ([id number]) 03398 EST. PATIENT, LEVEL IV Diagnosis: Atrial fibrillation[ICD9: 427.31] Diagnosis: Anticoagulation goal of INR 2 to 3[ICD9: V58.83] Diagnosis: Urinary incontinence, urge[ICD9: 788.31] Diagnosis: ESSENTIAL HYPERTENSION[SNOMED: 76044212] Karma Bahena MD [facility] CPT-4: 63482 02/01/2012 ([id number]) 58774 EST. PATIENT, LEVEL IV Diagnosis: Atrial fibrillation[ICD9: 427.31] Diagnosis: Anticoagulant long-term use[ICD9: V58.61] Diagnosis: ESSENTIAL HYPERTENSION[SNOMED: 43757501] Karma Bahena MD [facility] CPT-4: 38378 2012 13885 EST. PATIENT, LEVEL IV Diagnosis: UTI[ICD9: 599.0] Diagnosis: ESSENTIAL HYPERTENSION[SNOMED: 83618396] Diagnosis: MALAISE AND FATIGUE[ICD9: 780.79] Diagnosis: Esophageal reflux[ICD9: 530.81] Karma Bahena MD [facility] CPT-4: 30483 12/01/2011 ([id number]) 02830 EST. PATIENT, LEVEL IV Diagnosis: UTI (urinary tract infection)[ICD9: 599.0] Diagnosis: ESSENTIAL HYPERTENSION[SNOMED: 63655610] Diagnosis: URGE INCONTINENCE[ICD9: 788.31] Karma Bahena MD, [facility] CPT-4: 93712 11/23/2011 ([id number]) 64886 EST. PATIENT, LEVEL IV Diagnosis: ESSENTIAL HYPERTENSION[SNOMED: 57367170] Diagnosis: IMPACTED CERUMEN[ICD9: 380.4] Diagnosis: MALAISE AND FATIGUE[ICD9: 780.79] Diagnosis: EDEMA[ICD9: 782.3] Karma Bahena MD, [facility] CPT-4: 77562 10/03/2011 18020 EST. PATIENT, LEVEL IV Diagnosis: ESSENTIAL HYPERTENSION[SNOMED: 04871360] Diagnosis: Generalized osteoarthritis[ICD9: 715.09] Diagnosis: OSTEOPOROSIS[ICD9: 733.00] Karma Bahena MD, [facility] CPT-4: 90376 08/08/2011 22609 EST. PATIENT, LEVEL IV Diagnosis: Muscle cramp[ICD9: 729.82] Diagnosis: Torticollis[ICD9: 723.5] Diagnosis: Rash[ICD9: 782.1] Karma Bahena MD, [facility] CPT-4: 99114 05/09/2011 39292 EST. PATIENT, LEVEL IV Diagnosis: Leg cramps, sleep related[ICD9: 327.52] Diagnosis: Underweight[ICD9: 783.22] Karma Bahena MD, [facility] CPT-4: 75400 03/29/2011 60457 EST. PATIENT, LEVEL IV Diagnosis: UTI[ICD9: 599.0] Diagnosis: Urge incontinence[ICD9: 788.31] Diagnosis: Loss of weight[ICD9: 783.21] Diagnosis: Palpitations[ICD9: 785.1] Diagnosis: Peripheral neuropathy, idiopathic[ICD9: 356.9] Karma Bahena MD, [facility] CPT-4: 70243 03/15/2011 Plan of Care Planned Activity Notes Codes Status Date Patient Education: Patient Medication Summary Completed 06/08/2018 Care Plan: SCREENINGMAMMOGRAPHYDIGITAL LOINC : 85310-3 Pending 06/08/2018 Visit Plan: Hypertension - well controlled [...] improving. 06/04/2018 Appointment: Karma Bahena WPtel: [phone] [facility] (15 min) Moderate 06/04/2018 Patient [...] q 3 months or q 6 m [facility] based on previous levels of control. 01/31/2018 Appointment: Katharine Dai WPtel: [phone] [facility] [facility] - Annual Wellness Visit 01/31/2018 Patient Education: [...] spray. 12/14/2017 Appointment: Karma Bahena WPtel: [address] [place], [place] [address] (15 min) Moderate 12/14/2017 Patient Education: Patient [...] spray. 12/07/2017 Appointment: Katharine Dai WPtel: [phone] [facility] (15 min) Moderate 12/07/2017 Patient [...] of control. 11/14/2017 Appointment: Karma Bahena WPtel: [facility]5 [facility] (15 min) Moderate 11/14/2017 Patient Education: [...] shot today. 03/27/2017 Appointment: Karma Bahena WPtel: [facility]1 [facility] (15 min) Moderate 03/27/2017 [...] Dai WPtel: [facility]3 [facility] [place] [address] - Annual Wellness Visit 01/23/2017 Patient Education: [...] becoming uncontrolled. 01/19/2017 Appointment: Karma Bahena WPtel: [address] [place], [place] [phone] (15 min) Moderate 01/19/2017 Patient Education: Patient Medication Summary Completed 01/19/2017 Care Plan: Referral Order SNOMED-CT : [id number] Pending 01/19/2017 Appointment: Karma Bahena WPtel: [facility]0 [facility] (15 min) Moderate 01/04/2017 Appointment: Karma Bahena WPtel: [facility] (15 min) Moderate 12/28/2016 Visit Plan: VBI-yadoz-qcp zpack-call if symptoms do not resolve or if any worse. Patient verbalized understanding of plan. 11/29/2016 Appointment: Laura Colin WPtel: [address] [place], [place] [phone] (15 min) Moderate 11/29/2016 Patient Education: Patient [...] patient's pharmacy. 11/23/2016 Appointment: Katharine Dai WPtel: [address] [place] [address] (15 min) Moderate 11/23/2016 Patient Education: Patient Medication Summary Completed 11/23/2016 Visit Plan: Pharyngitis-Discussed natural and expected course of this diagnosis and need to alert me if symptoms do not follow expected course, or if any worse. Recommended salt water gargles as needed for pain. Ty lenol/motrin as needed for fever/discomfort. 11/21/2016 Appointment: Laura Colin WPtel: [address] [place], [place] [phone] (15 min) Moderate 11/21/2016 Patient Education: Patient [...] symptoms. 11/08/2016 Appointment: [phone] [place] (10 min) Simple 11/08/2016 Patient [...] is becoming uncontrolled. Laceration of arm - yovania ling - continue with supportive care, bactroban, etc. 11/02/2016 Appointment: Nurse Visit 11/02/2016 Appointment: Karma Bahena WPtel: [phone] [facility] (15 min) Moderate 11/02/2016 Patient Education: Patient Medication Summary Completed 11/02/2016 Appointment: Nurse Visit 10/31/2016 Visit Plan: Laceration-right forearm- Pt was instructed to keep the wound clean, cleanse with sterile saline, use bactroban ointment, call if redness, pustular drainage, or any other acute concerns. Follow up Monday for dressing changes. 10/27/2016 App[facility]ment: [phone] [phone] [place] (30 min) Complex 10/27/2016 Patient [...] symptoms. 08/31/2016 Appointment: Karma Bahena WPtel: [phone] [facility] [place] (15 min) Moderate 08/31/2016 Patient Education: [...] your swelling. 07/27/2016 Appointment: Karma Bahena WPtel: [facility] (15 min) Moderate 07/27/2016 Patient Education: [...] Karma Bahena WPtel[id number] ([facility] min) Moderate 06/23/2016 Patient Education: Patient Medication Summary Completed 06/23/2016 Patient Education: Hypertension Completed 06/23/2016 Visit Plan: Edema - with Dyspnea - RX for laxis and compression socks - pt to call if not improving. 06/09/2016 Appointment: Karma Bahena WPtel[id number] ([facility] min) Moderate 06/09/2016 Patient Education: Patient Medication Summary Completed 06/09/2016 Visit Plan: Abdominal pain and rectal itching - recommended pt to use betamethasone on vaginal/rectal region, monitor symptoms call if not improving. Continue with beano and simethicone 05/25/2016 Appointment: Karma Bahena [facility]Ptel[facility] [phone] [id number] (15 min) Moderate 05/25/2016 Patient Education: Patient Medication Summary Completed 05/25/2016 Care Plan: [facility] [id number] Pending 05/20/2016 Visit Plan: Abdominal distension - use simethicone four times daily - after meals - if it does not help - in the next two weeks - call the office and we will do a ct scan of the abdomen and pelvis 05/17/2016 Appointment: [phone] (15 min) Moderate 05/17/2016 Patient Education: Patient [...] ointment 03/24/2016 Appointment: [phone] (30 min) Complex 03/24/2016 Patient Education: [...] spray. 12/21/2015 Appointment: Laura Colin WPtel: [phone] [facility] [place] [address] (30 min) Complex 12/21/2015 Patient Education: Patient [...] becoming uncontrolled. 11/03/2015 Appointment: Karma Bahena WPtel: [facility]4 [facility] (15 min) Moderate 11/03/2015 [...] had left kidney and ureter removed in [place]-doing well 09/01/2015 Appointment: (30 min) Complex 09/01/2015 Patient Education: Patient Medication Summary Completed 09/01/2015 Patient Education: Hypertension Completed 09/01/2015 Appointment: Karma Bahena WPtel: [address] [place] [id number] (15 min) Moderate 07/13/2015 Visit Plan: Hematuria/Urethritis [...] 05/13/2015 Care Plan: Referral Order SNOMED-CT : [id number] Ordered 05/08/2015 Visit Plan: Atrial Fibrillation - [...] Collins. 05/07/2015 Appointment: [phone] (15 min) Moderate 05/07/2015 Patient Education: [...] uncontrolled. 10/30/2014 Appointment: Kar[facility] Ba[facility]Ptel[phone] Follow up 10/30/2014 Patient Education: Patient Medication Summary Completed 10/30/2014 Appointment: Karma Bahena WPtel: [address] [place], [place] [phone] Follow up 07/22/2014 Visit Plan: Atrial Fibrillation [...] in hospital. 07/11/2014 Appointment: Karma Bahena WPtel: [address] [place], [place] [phone] Sick 07/11/2014 Patient Education: Patient Medication Summary Completed 07/11/2014 Appointment: Karma Bahena WPtel: [address] [place], [place] [phone] Follow up 07/07/2014 Visit Plan: Urinary incontinence and recurrent UTI's - doctor will refer to Dr. Joel Collins - for nonsurgical intervention for potential electrical stimulation/training of pelvic floor muscles - for strengthening - can start on the treatment when you get back from [place] - will also ask him about doing a cystoscopy to look into bladder to see if there is any bladder irritation. keep using the Premarin - use about 25Cent size of cream onto finger to apply to urethra and do this three times weekly. 05/20/2014 Appointment: Karma Bahena WPtel: [address] [place], [place] [phone] Follow up 05/20/2014 Patient Education: Patient Medication Summary Completed 05/20/2014 Appointment: Karma Bahena WPtel: [address] [place], [place] [phone] Lab Draw 05/14/2014 Patient Education: Patient Medication [...] vesicare. 04/29/2014 Appointment: [phone] Follow up 04/29/2014 Patient Education: Patient [...] Bahena WPtel: [facility]5 [facility] [facility] 03/20/2014 Patient Education: Patient Medication [...] becoming uncontrolled. 03/05/2014 Appointment: Karma Bahena WPtel: [facility]1 [facility] Follow up 03/05/2014 Patient Education: Patient [...] Bahena WPtel: [facility]4 [facility] Follow up 01/29/2014 Patient [...] exposure,and dyspnea on exertion - will ask [place] Patient do an overnight oxygen study on [place] as she has cardiac history, weight loss, and nocturnal hypoxemia may be a part of her weight loss and fatigue. 12/25/2013 Appointment: Kar[facility] Ba[facility]Ptel[phone] Follow up 12/25/2013 Patient Education: Patient [...] daily. 11/27/2013 Appointment: Kar[facility] Bahen[facility]Ptel: [phone] Follow up 11/27/2013 Patient Education: Patient [...] Osteoarthritis - send pt to [facility] physical therapy for gereral osteoarhtritis program for strengthening and pain reduction. Hypertension - well controlled - continue with current medications, continue with no added salt diet. Pt has been encouraged to exercise daily. The pt has been advised to call the office if there are any acute concerns about change in blood pressure readings at home. 09/12/2013 Appointment: Karma Bahena WPtel: [phone] [facility] Follow up 09/12/2013 Patient Education: Patient Medication Summary Completed 09/12/2013 Patient Education: Hypertension Completed 09/12/2013 Appointment: Karma Bahena WPtel: [phone] [facility] Follow up 08/21/2013 Visit Plan: Hypertension [...] 08/15/2013 Appointment: Karma Bahena WPtel: [phone] [facility] Follow up 08/15/2013 Patient Education: Patient [...] Bahena WPtel: [facility] [place] Follow up 08/01/2013 Patient Education: Patient Medication Summary Completed 08/01/2013 Patient Education: Hypertension Completed 08/01/2013 Appointment: Laura Colin WPtel[phone] [place] Lab Draw 07/29/2013 Patient Education: Patient Medication Summary Completed 07/29/2013 Visit Plan: Osteoporosis-prolia on june 25-patient to let Dr Hansen know 07/01/2013 Appointment: Laura Colin WPtel: [phone] [place] Follow up 07/01/2013 Appointment: Karma Bahena WPtel: [address] [place] [id number] [place] Follow up 07/01/2013 Patient Education: Patient Medication Summary Completed 07/01/2013 Appointment: Karma Bahena WPtel: [address] [place] [id number] [place] Follow up 06/25/2013 Appointment: Karma Bahena WPtel: [address] [place] [id number] [place] Lab Draw 06/20/2013 Patient Education: Patient Medication Summary Completed 06/20/2013 Appointment: Karma Bahena WPtel: [address] [place] [id number] [place] Lab Draw 06/19/2013 Visit Plan: Atrial [...] at home. 05/29/2013 Appointment: Karma Bahena WPtel: [facility]9 [facility] Follow up 05/29/2013 Patient [...] at home. 05/15/2013 Appointment: Karma Bahena WPtel: [facility]6 [facility] Other 05/15/2013 Patient Education: Patient Medication [...] Colin WPtel: [facility]5 [phone] Follow up 03/21/2013 Patient Education: Patient [...] becoming uncontrolled. 01/16/2013 Appointment: Karma Bahena WPtel: [facility]5 [facility] Follow up 01/16/2013 Patient Education: Patient Medication Summary Completed 01/16/2013 Patient Education: Hypertension Completed 01/16/2013 Visit Plan: Wound Instructions - Pt was instruced to keep the wound clean, wash with antibacterial soap, use triple antibiotic ointment, call if redness, pustular drainage, or any other acute conerns. 12/19/2012 Appointment: Karma Bahena WPtel: [address] [place], [place] [phone] Other 12/19/2012 Patient Education: Patient Medication Summary Completed 12/19/2012 Patient Education: Patient Medication Summary Completed 12/17/2012 Visit Plan: Cellulitis - improved- monitor symptoms - need to check handon Monday morning. 12/14/2012 Appointment: Karma Bahena WPtel: [facility]5 [facility] Follow up 12/14/2012 Patient Education: Patient Medication Summary Completed 12/14/2012 Visit Plan: Cellulitis - improved- monitor symptoms - need to check handon Monday morning. 12/12/2012 Appointment: Karma Bahena WPtel: [address] [place], [place] [phone] Work-in 12/12/2012 Patient Education: Patient Medication Summary [...] warmth, discharge. 12/10/2012 Appointment: Karma Bahena WPtel: [facility]5 [facility] Other 12/10/2012 Patient Education: [...] becoming uncontrolled. 10/30/2012 Appointment: Karma Bahena WPtel: [address] [place], [place] [phone] Follow up 10/30/2012 Patient Education: Patient Medication Summary Completed 10/30/2012 Appointment: Laura Colin WPtel: [address] [place], [place] [phone] [place] Lab Draw 09/13/2012 Patient Education: Patient [...] 3.5. 08/08/2012 Appointment: Kar[facility]el[phone] Other 08/08/2012 Patient Education: Patient Medication [...] this regimen. 07/11/2012 Appointment: Kar[facility] Bahen[facility]Ptel: [phone] swelling, leg edema Other 07/11/2012 Patient [...] vaginally. 05/08/2012 Appointment: Kar[facility] Bahena [facility]Ptel: [phone] Follow up 05/08/2012 Patient Education: Patient [...] hospitalization. 04/18/2012 Appointment: Karma Bahena WPtel: [address] [place] [id number] Follow up 04/18/2012 Patient Education: Patient Medication Summary Completed 04/18/2012 Patient Education: High Blood Pressure: Essential Hypertension Completed 04/18/2012 Appointment: Karma Bahena WPtel: [address] [place] [id number] Follow up 04/09/2012 Appointment: Karma Bahena WPtel: [address] [place] [id number] [place] Lab Draw 04/04/2012 Appointment: Laura Colin WPtel: [address] [place] [phone] [place] Lab Draw 03/19/2012 Visit Plan: Abdominal [...] Bahena WPtel: [facility]8 [place] [phone] Lab Draw 03/08/2012 Patient Education: Patient Medication [...] rehab. 02/20/2012 Appointment: Karma Bahena WPtel: [phone] [facility] Other 02/20/2012 Patient Education: Patient Medication [...] uncontrolled. 02/13/2012 Appointment: Laura Colin WPtel: [phone] [facility] [place] [address] Other 02/13/2012 Patient Education: Patient Medication Summary Completed 02/13/2012 Appointment: Karma Bahena WPtel: [phone] [facility] Lab Draw 02/07/2012 Visit [...] Bahena WPtel: [phone] [facility] Other 02/01/2012 Patient Education: Patient Medication Summary Completed 02/01/2012 Patient Education: High Blood Pressure: Essential Hypertension Completed 02/01/2012 Appointment: Karma Bahena WPtel: [phone] [facility] [place] Lab Draw 01/17/2012 Visit Plan: Atrial [...] at home. 2012 Appointment: Karma Bahena WPtel: [phone] [facility] Other 2012 Patient Education: Patient Medication Summary Completed 2012 Patient Education: High Blood Pressure: Essential Hypertension Completed 2012 Appointment: Karma Bahena WPtel: [phone] [facility] Follow up 12/20/2011 Visit [...] emergency room. 12/01/2011 Appointment: Karma Bahena WPtel: [phone] [facility] Other 12/01/2011 Patient Education: [...] infection resolves. 11/23/2011 Appointment: Laura Colin WPtel: [address] [place], [place] [phone] [place] Other 11/23/2011 Patient Education: Patient Medication Summary Completed 11/23/2011 Patient Education: High Blood Pressure: Essential Hypertension Completed 11/23/2011 Visit Plan: Cerumen Impaction - The impacted cerumen was removed with the use of either ear currette alone or in combination with ear curette and water pick. The patient tolerated the procedure without incident and had improvement in hearing 10/17/2011 Appointment: Laura Colin WPtel: [phone] [place] Other 10/17/2011 Patient Education: Patient Medication [...] irrigation. 10/03/2011 Appointment: Karma Bahena WPtel: [phone] Other 10/03/2011 Patient Education: Patient Medication [...] Bahena WPtel: [facility]5 [address] Other 08/08/2011 Patient Education: Patient Medication Summary Completed 08/08/2011 Patient Education: High Blood Pressure: Essential Hypertension Completed 08/08/2011 Visit Plan: Muscle cramps - the cramps are a little better, continue with the Diltiazem and it is okay to use the over the counter supplement with quinine - but use it sparingly. For the rash, use the prescripti on the tonger prescribed for the itching , call if the rash is not improved. Torticollis - continue with physical therapy, call if the neck muscles do not continue to show improvement. 05/09/2011 Appointment: Karma Bahena WPtel: [facility]4 [place] [address] [place] Other 05/09/2011 Patient Education: Patient Medication [...] aerobics. 03/29/2011 Appointment: Karma Bahena WPtel: [address] [place] [address] Other 03/29/2011 Patient Education: Patient Medication Summary Completed 03/29/2011 Appointment: Karma Bahena WPtel: [address] [place] [address] Other 03/17/2011 Visit Plan: UTI - UA negative. Urge incontinence- restart on the vesicare- at 5 mg. Continue to avoid caffinated foods/fluids. Peripheral Neuropathy - per public interviewer report - Continue with the metanex. Loss of weight - WEIGHT CHECK IN 2 WKS. Palpitations- likely stress induced. If the symptoms worsen, call the office. 03/15/2011 Appointment: Karma Bahena WPtel: [address] [place] [address] Follow up 03/15/2011 Patient Education: Patient Medication [...] avoid caffinated foods/fluids. Peripheral Neuropathy - per public interviewer report - Continue with the metanex. Loss [...] therefore, would not change the medication. . [id number] zpack-call if symptoms do not resolve or [...] For the rash, use the prescription the tonger prescribed for the itching , call if [...] Osteoarthritis - send pt to [facility] physical therapy for gereral osteoarhtritis program for [...] had left kidney and ureter removed in [place]- doing well . Hematuria - check UA. [...] the treatment when you get back from [place] - will also ask him about doing [...] the treatment when you get back from [place] - will also ask him about doing [...] exposure,and dyspnea on exertion - will ask [employer] Patient do an overnight oxygen study [...]
[2018-12-10] MEDS ORDERED: MAGNESIUM 1 GM/100 ML IVPB 100 ML IV ONE (21:15)
--- OUTSIDE RECORDS SUMMARY | 2018-12-10 21:25 | XMS REPORT | CCD ---
Author Author Laura Colin Organization Karma Bahena MD, [facility] Address [address] [place] [address] Phone Care Team Providers Care Manager Environmental Name Role Phone Karma Bahena PP Unavailable CCM Unavailable Summary Purpose Interface Exchange Insurance Providers Payer name Policy type / Coverage type Covered green party ID Effective Begin Date Effective End Date WPS Medicare Part B Medicare Part B [id number] 2018 Unknown AARP Medicare Part B [id number] 2018 Unknown Family history Sister Diagnosis Age [...] Unknown House 03/15/[address]: 861950449 Never smoker 03/15/2011 Has the patient ever used illegal drugs? Unknown Has never used illegal drugs 03/15/2011 Allergies, Adverse Reactions, Alerts Substance Reaction Codes Entered Date Inactivated Date Status BACTINE RxNorm: 206187 03/04/2011 No Inactive Date Active MICONAZOLE RxNorm: 6932 03/04/2011 No Inactive Date Active NEOSPORIN RxNorm: 197093 03/04/2011 No Inactive Date Active NEOMYCIN RxNorm: 7299 03/04/2011 No Inactive Date Active CORTISPORIN RxNorm: 46621 03/04/2011 No Inactive Date Active bactrim RxNorm: 864311 03/13/2012 No Inactive Date Active AUGMENTIN diarrhea RxNorm: 330901 2016 No Inactive Date Active METRONIDAZOLE Unknown [...] 401.9 ICD-10: I10 Active 12/25/2013 Unknown 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 ICD-9: V58.83 ICD-10: Z79.899 [...] ICD-9: V76.12 ICD-10: Z12.31 Active 05/12/2014 Unknown First degree hemorrhoids ICD-9: 455.6 ICD-10: [...] breast ICD-9: V76.12 ICD-10: Z12.31 05/12/2014 Active First degree hemorrhoids ICD-9: 455.6 ICD-10: [...] Instructions sucralfate 100 mg/mL oral suspension RxNorm: 395949 2 Teaspoon(s) PO TID as needed with reflux symptoms 06/04/2018 No Stop Date Active Vesicare 10 mg tablet RxNorm: 857078 1 TABLET(S) PO EVERY OTHER DAY 05/14/2018 01/08/2019 Active levothyroxine 50 mcg tablet RxNorm: 818628 1 TABLET(S) PO DAILY 04/30/2018 07/28/2018 Active Patient requests 90 days supply spironolactone 25 mg tablet RxNorm: 515665 1 Tablet(s) PO daily 03/14/2018 03/08/2019 Active levothyroxine 50 mcg tablet RxNorm: 280212 1 Tablet(s) PO daily 02/01/2018 04/29/2018 Inactive Eliquis 2.5 mg tablet RxNorm: 1469001 1 Tablet(s) PO BID 01/31/2018 02/20/2018 Inactive levothyroxine 50 mcg tablet RxNorm: 201741 1 Tablet(s) PO daily 01/31/2018 01/31/2018 Inactive Eliquis 2.5 mg tablet RxNorm: 2266071 TAKE 1 TABLET BY MOUTH TWICE DAILY 01/23/2018 07/21/2018 Active metoprolol succinate ER 50 mg tablet,extended release 24 hr RxNorm: 675702 1 TABLET(S) PO DAILY 01/23/2018 01/30/2018 Inactive metoprolol succinate ER 50 mg tablet,extended release 24 hr RxNorm: 560693 1.5 Tablet(s) daily 01/22/2018 10/18/2018 Active lisinopril 20 mg tablet RxNorm: 797014 1/2 Tablet(s) daily 01/19/2018 01/21/2018 Inactive Patient requests 90 days supply Singulair 10 mg tablet RxNorm: 566027 TAKE 1 TABLET BY MOUTH AT BEDTIME 01/18/2018 04/17/2018 Inactive Patient requests 90 days supply Singulair 10 mg tablet RxNorm: 958593 Tablet(s) PO 01/17/2018 01/17/2018 Inactive digoxin 125 mcg tablet RxNorm: 432305 1 TABLET(S) PO DAILY 01/03/2018 12/28/2018 Active Symbicort 160 mcg-4.5 mcg/actuation HFA aerosol inhaler RxNorm: 1551174 2 Puff(s) INH BID 12/14/2017 04/12/2018 Inactive please dispense an aerochamber for patient as well as her symbicort cyclobenzaprine 5 mg tablet RxNorm: 394122 Tablet(s) 1/2 TABLET(S) PO Q8 NEEDED MUSCLE SPASMS 12/14/2017 No Stop Date Active pantoprazole 40 mg tablet,delayed release RxNorm: 572157 1 Tablet(s) PO daily 12/14/2017 12/08/2018 Active ProAir RespiClick 90 mcg/actuation breath activated RxNorm: 7711548 1-2 INH QID as needed shortness of breath 12/14/2017 07/11/2018 Active cyclobenzaprine 5 mg tablet RxNorm: 039741 1/2 TABLET(S) PO Q8 NEEDED MUSCLE SPASMS 12/08/2017 12/13/2017 Inactive betamethasone dipropionate 0.05 % topical ointment RxNorm: 240747 1 Application TOP TID use topically on the rectal tissue three times daily x 1 week then as needed 11/13/2017 No Stop Date Active Premarin 0.625 mg/gram vaginal cream RxNorm: 571557 1/2 GRAM(S) VAG TIW 11/13/2017 12/12/2017 Inactive cyclobenzaprine 5 mg tablet RxNorm: 648197 1/2 TABLET(S) PO Q8 NEEDED MUSCLE SPASMS 10/17/2017 12/07/2017 Inactive Vesicare 10 mg tablet RxNorm: 403587 1 Tablet(s) PO every other day 10/17/2017 04/14/2018 Inactive lisinopril 20 mg tablet RxNorm: 327574 1 TABLET(S) PO DAILY 10/02/2017 01/18/2018 Inactive Patient requests 90 days supply levothyroxine 75 mcg tablet RxNorm: 273945 1 TABLET(S) PO DAILY 09/25/2017 01/30/2018 Inactive spironolactone 25 mg tablet RxNorm: 633971 1 TABLET(S) PO DAILY 08/16/2017 03/13/2018 Inactive cyclobenzaprine 5 mg tablet RxNorm: 975362 1/2 TABLET(S) PO Q8 NEEDED MUSCLE SPASMS 08/16/2017 10/16/2017 Inactive Eliquis 2.5 mg tablet RxNorm: 4380305 TAKE 1 TABLET BY MOUTH TWICE DAILY 07/26/2017 01/21/2018 Inactive cyclobenzaprine 5 mg tablet RxNorm: 726317 1/2 Tablet(s) PO Q8 as needed muscle spasms 06/19/2017 08/15/2017 Inactive lisinopril 20 mg tablet RxNorm: 626325 1 TABLET(S) PO DAILY 06/12/2017 10/01/2017 Inactive metoprolol succinate ER 50 mg tablet,extended release 24 hr RxNorm: 266268 1 TABLET(S) PO DAILY 04/07/2017 01/01/2018 Inactive spironolactone 25 mg tablet RxNorm: 058118 1 Tablet(s) PO daily 03/27/2017 03/13/2018 Inactive acyclovir 800 mg tablet RxNorm: 468448 1 Tablet(s) PO TID 03/21/2017 03/30/2017 Inactive acyclovir 800 mg tablet RxNorm: 202248 1 Tablet(s) PO TID 03/21/2017 03/20/2017 Inactive levothyroxine 75 mcg tablet RxNorm: 022311 1 Tablet(s) PO daily 03/16/2017 09/11/2017 Inactive spironolactone 25 mg tablet RxNorm: 151939 1 TABLET(S) PO DAILY 02/09/2017 03/26/2017 Inactive lisinopril 20 mg tablet RxNorm: 484658 1 TABLET(S) PO DAILY 01/02/2017 05/31/2017 Inactive Zithromax Z-Claudio 250 mg tablet RxNorm: 476590 1 Tablet(s) PO UD 11/29/2016 12/03/2016 Inactive ZPACK Keflex 500 mg capsule RxNorm: 400649 1 Capsule(s) PO TID 11/23/2016 12/02/2016 Inactive guaifenesin 400 mg tablet RxNorm: 178351 1 Tablet(s) PO Q6 as needed 11/23/2016 11/27/2016 Inactive omeprazole 40 mg capsule,delayed release RxNorm: 751287 1 Capsule(s) PO QPM 11/02/2016 12/13/2017 Inactive digoxin 125 mcg tablet RxNorm: 667620 1 TABLET(S) PO DAILY 10/27/2016 07/23/2017 Inactive cyclobenzaprine 5 mg tablet RxNorm: 105328 1/2 Tablet(s) PO Q8 PRN 10/25/2016 06/18/2017 Inactive prn muscle spasms Augmentin 500 mg-125 mg tablet RxNorm: 920329 1 Tablet(s) PO BID 10/24/2016 11/02/2016 Inactive Lasix 20 mg tablet RxNorm: 604050 Tablet(s) PRN one to two times a week if needed 07/27/2016 No Stop Date Active Patient requests 90 days supply spironolactone 25 mg tablet RxNorm: 935728 1 Tablet(s) PO daily 07/27/2016 02/08/2017 Inactive Diflucan 150 mg tablet RxNorm: 927669 1 Tablet(s) PO daily 07/27/2016 08/02/2016 Inactive lisinopril 20 mg tablet RxNorm: 692411 1 Tablet(s) PO daily 07/12/2016 01/01/2017 Inactive Lasix 20 mg tablet RxNorm: 240805 1 TABLET(S) PO EVERY OTHER DAY EVERY OTHER DAY 06/10/2016 07/26/2016 Inactive Patient requests 90 days supply potassium chloride ER 10 mEq capsule,extended release RxNorm: 771606 1 CAPSULE(S) PO EVERY OTHER DAY 06/10/2016 07/26/2016 Inactive Patient requests 90 days supply potassium chloride ER 10 mEq capsule,extended release RxNorm: 355856 1 Capsule(s) PO every other day 06/09/2016 06/09/2016 Inactive Lasix 20 mg tablet RxNorm: 638602 1 Tablet(s) PO every other day every other day 06/09/2016 06/09/2016 Inactive levothyroxine 88 mcg tablet RxNorm: 346314 1 Tablet(s) PO daily 05/11/2016 11/06/2016 Inactive Premarin 0.625 mg/gram vaginal cream RxNorm: 764225 1/2 Gram(s) VAG TIW 03/24/2016 03/18/2017 Inactive metoprolol succinate ER 50 mg tablet,extended release 24 hr RxNorm: 494016 1 Tablet(s) PO daily 03/24/2016 03/18/2017 Inactive pantoprazole 40 mg tablet,delayed release RxNorm: 106970 1 Tablet(s) PO daily 02/08/2016 11/01/2016 Inactive betamethasone dipropionate 0.05 % topical ointment RxNorm: 712558 1 Application TOP TID use topically on the rectal tissue three times daily x 1 week then as needed 02/02/2016 11/12/2017 Inactive pantoprazole 40 mg tablet,delayed release RxNorm: 389184 1 Tablet(s) PO daily 2016 02/07/2016 Inactive alprazolam 0.25 mg tablet RxNorm: 731491 1 Tablet(s) PO Q6 as needed 12/04/2015 No Stop Date Active Vesicare 10 mg tablet RxNorm: 669202 1 Tablet(s) PO every other day 11/03/2015 10/16/2017 Inactive alprazolam 0.25 mg tablet RxNorm: 053955 1 Tablet(s) PO Q6 as needed 11/03/2015 12/03/2015 Inactive Premarin 0.625 mg/gram vaginal cream RxNorm: 237515 1/2 Gram(s) VAG TIW 11/03/2015 03/23/2016 Inactive levothyroxine 88 mcg tablet RxNorm: 456031 1 Tablet(s) PO daily 11/03/2015 05/10/2016 Inactive Diflucan 150 mg tablet RxNorm: 824747 1 Tablet(s) PO daily 10/19/2015 10/25/2015 Inactive cetirizine 10 mg chewable tablet RxNorm: 5193347 1 Tablet(s) PO daily 10/13/2015 11/11/2015 Inactive cetirizine 10 mg capsule RxNorm: 8102399 1 Capsule(s) PO daily 10/13/2015 11/11/2015 Inactive Vesicare 10 mg tablet RxNorm: 863206 1/2 TABLET(S) PO BID 09/21/2015 11/02/2015 Inactive betamethasone dipropionate 0.05 % topical ointment RxNorm: 153555 1 Application TOP TID use topically on the rectal tissue three times daily x 1 week then as needed 09/15/2015 02/01/2016 Inactive lisinopril 20 mg tablet RxNorm: 004188 1 Tablet(s) PO daily 09/01/2015 07/11/2016 Inactive digoxin 125 mcg tablet RxNorm: 605438 1 Tablet(s) PO daily 09/01/2015 08/25/2016 Inactive Augmentin 500 mg-125 mg tablet RxNorm: 994193 1 Tablet(s) PO TID 05/26/2015 06/04/2015 Inactive Pyridium 200 mg tablet RxNorm: 1039500 1 Tablet(s) PO TID 05/26/2015 05/27/2015 Inactive levothyroxine 88 mcg tablet RxNorm: 049098 1 Tablet(s) PO daily except 1/2 pill on monday and 05/07/2015 11/02/2015 Inactive digoxin 125 mcg tablet RxNorm: 217682 1 Tablet(s) PO daily 05/07/2015 08/31/2015 Inactive lisinopril 20 mg tablet RxNorm: 407521 1 TABLET(S) PO BID 04/13/2015 09/01/2015 Inactive Coumadin 1 mg tablet RxNorm: 563847 1 TABLET(S) PO DAILY 03/31/2015 08/31/2015 Inactive Coumadin 2 mg tablet RxNorm: 892835 4MG IN AM AND 1MG AT NIGHT TABLET(S) PO DAILY DIRECTED. 03/31/2015 08/31/2015 Inactive levothyroxine 88 mcg tablet RxNorm: 009564 1 Tablet(s) PO daily 03/23/2015 05/06/2015 Inactive alprazolam 0.25 mg tablet RxNorm: 873143 Tablet(s) PO 03/23/2015 04/06/2015 Inactive levothyroxine 88 mcg tablet RxNorm: 882973 1 Tablet(s) PO daily 01/28/2015 03/22/2015 Inactive levothyroxine 88 mcg tablet RxNorm: 053535 1 Tablet(s) PO daily 01/28/2015 01/27/2015 Inactive diltiazem ER 120 mg capsule,extended release RxNorm: 534153 1 Capsule(s) PO BID patient would like 4 months at a time 01/06/2015 09/28/2015 Inactive digoxin 125 mcg tablet RxNorm: 305787 Tablet(s) 1 TABLET(S) PO DAILY 12/24/2014 12/23/2014 Inactive pt will be paying [employer]oma[employer] (On $4 list)Patient requests 90 days supply digoxin 125 mcg tablet RxNorm: 133972 Tablet(s) 1 TABLET(S) PO DAILY M W F Sat and 2 tabs on T 12/24/2014 05/06/2015 Inactive pt will be paying [employer]oma[employer] (On $4 list)Patient requests 90 days supply dicyclomine 20 mg tablet RxNorm: 014116 1 Tablet(s) PO daily 11/17/2014 08/31/2015 Inactive one ac dinner and up to tid prn levothyroxine 88 mcg tablet RxNorm: 143269 1 Tablet(s) PO daily 11/03/2014 01/27/2015 Inactive Premarin 0.625 mg/gram vaginal cream RxNorm: 863868 1 APPLICATION VAG 1 APPLICATOR PER VAGINA 3 TIMES PER WEEK 11/03/2014 07/30/2015 Inactive digoxin 125 mcg tablet RxNorm: 241120 1 TABLET(S) PO DAILY 09/29/2014 12/23/2014 Inactive pt will be paying [employer]oma[employer] (On $4 list)Patient requests 90 days supply digoxin 125 mcg tablet RxNorm: 724941 1 TABLET(S) PO DAILY 07/11/2014 04/06/2015 Inactive Vesicare 10 mg tablet RxNorm: 751576 1/2 Tablet(s) PO BID 05/20/2014 05/14/2015 Inactive Levaquin 500 mg tablet RxNorm: 249662 1 Tablet(s) PO daily 05/06/2014 05/08/2014 Inactive take probiotic BID while on ABT Levaquin 500 mg tablet RxNorm: 073989 1 Tablet(s) PO daily 05/02/2014 05/05/2014 Inactive take probiotic BID while on ABT diltiazem ER 120 mg capsule,extended release RxNorm: 544684 1 Capsule(s) PO BID patient would like 4 months at a time 04/29/2014 2015 Inactive Vesicare 10 mg tablet RxNorm: 329931 1/2 Tablet(s) PO BID 04/29/2014 05/19/2014 Inactive lisinopril 20 mg tablet RxNorm: 623624 1 Tablet(s) PO BID 03/20/2014 03/14/2015 Inactive diltiazem 90 mg tablet RxNorm: 342256 1/2 TABLET(S) PO QPM 03/04/2014 04/28/2014 Inactive also 180 q am diltiazem ER 120 mg capsule,extended release RxNorm: 699596 1 Capsule(s) PO daily patient would like 4 months at a time 01/29/2014 04/28/2014 Inactive Vesicare 10 mg tablet RxNorm: 196746 1 Tablet(s) PO QHS 01/14/2014 04/28/2014 Inactive Coumadin 2 mg tablet RxNorm: 787596 4mg in AM and 1mg at night Tablet(s) PO daily as directed. 12/25/2013 03/30/2015 Inactive Metanx 3 mg-35 mg-2 mg tablet RxNorm: 1 Tablet(s) PO daily 12/25/2013 11/02/2015 Inactive digoxin 125 mcg tablet RxNorm: 356852 1 Tablet(s) PO daily 12/25/2013 09/28/2014 Inactive pt will be paying [employer]oma[employer] (On $4 list) Coumadin 2 mg tablet RxNorm: 666892 7.5 wed 5mg other Tablet(s) PO as directed. 12/03/2013 12/24/2013 Inactive omeprazole 20 mg tablet,delayed release RxNorm: 354879 1 Tablet(s) PO BID 11/27/2013 04/28/2014 Inactive Coumadin 2 mg tablet RxNorm: 076923 5 mg daily Tablet(s) PO as directed. 11/26/2013 12/02/2013 Inactive 5 mg daily Xanax 0.25 mg tablet RxNorm: 649960 1 Tablet(s) PO Q6 PRN 11/11/2013 12/25/2013 Inactive alprazolam 0.25 mg tablet RxNorm: 650699 tablet oral 11/11/2013 03/22/2015 Inactive sucralfate 1 gram tablet RxNorm: 666499 1 Tablet(s) PO AC & HS 11/04/2013 11/03/2013 Inactive sucralfate 1 gram tablet RxNorm: 424517 1 Tablet(s) PO AC & HS 11/04/2013 01/02/2014 Inactive Synthroid 100 mcg tablet RxNorm: 510831 1 Tablet(s) PO daily 10/31/2013 10/25/2014 Inactive Synthroid 100 mcg tablet RxNorm: 759762 1 Tablet(s) PO daily 09/30/2013 10/29/2013 Inactive Vesicare 10 mg tablet RxNorm: 776160 1 Tablet(s) PO QHS 09/30/2013 01/13/2014 Inactive Lotemax 0.5 % eye ointment RxNorm: 8707945 ointment opht 09/06/2013 12/10/2013 Inactive levothyroxine 100 mcg tablet RxNorm: 384868 tablet oral 09/05/2013 11/02/2014 Inactive Synthroid 100 mcg tablet RxNorm: 638628 1 Tablet(s) PO daily 09/05/2013 09/29/2013 Inactive Prolia 60 mg/mL Sub-Q Syringe RxNorm: 121171 1 Milliliter(s) SQ 06/25/2013 11/02/2015 Inactive dicyclomine 20 mg tablet RxNorm: 203479 1 Tablet(s) PO daily 06/24/2013 06/18/2014 Inactive one ac dinner and up to tid prn omeprazole 20 mg tablet,delayed release RxNorm: 715789 1 Tablet(s) PO BID 06/24/2013 11/26/2013 Inactive Cipro 500 mg tablet RxNorm: 445053 1 Tablet(s) PO BID 06/20/2013 06/26/2013 Inactive diltiazem ER 120 mg capsule,extended release RxNorm: 499849 1 Capsule(s) PO daily patient would like 4 months at a time 06/03/2013 01/28/2014 Inactive Coumadin 2 mg tablet RxNorm: 533926 as directed Tablet(s) PO as directed. 05/29/2013 11/25/2013 Inactive 5 mg daily Synthroid 88 mcg tablet RxNorm: 289311 1 Tablet(s) PO daily 04/24/2013 04/23/2013 Inactive Synthroid 88 mcg tablet RxNorm: 682344 1 Tablet(s) PO daily 04/24/2013 07/28/2013 Inactive Premarin 0.625 mg/gram vaginal cream RxNorm: 901872 1 Application VAG 1 applicator per vagina 3 times per week 04/23/2013 04/17/2014 Inactive Influenza Virus Vaccine 0.5 mL RxNorm: IM 04/23/2013 04/23/2013 Inactive digoxin 125 mcg tablet RxNorm: 443886 1 Tablet(s) PO daily 02/20/2013 04/20/2013 Inactive pt will be paying [employer]oma[employer] (On $4 list) Digox 125 mcg tablet RxNorm: 9576492 tablet oral 02/13/2013 03/20/2014 Inactive digoxin 125 mcg tablet RxNorm: 793531 1 Tablet(s) PO daily 02/13/2013 02/19/2013 Inactive diltiazem 90 mg tablet RxNorm: 117234 1/2 Tablet(s) PO QPM 02/13/2013 02/07/2014 Inactive also 180 q am Levoxyl 75 mcg tablet RxNorm: 296538 1 Tablet(s) PO 01/16/2013 04/23/2013 Inactive Coumadin 2 mg tablet RxNorm: 941616 6mg daily except 3mg on mon and mon Tablet(s) PO 01/15/2013 05/28/2013 Inactive 5 mg daily Coumadin 2 mg tablet RxNorm: 189374 6mg daily Tablet(s) PO 12/21/2012 01/14/2013 Inactive 5 mg daily silver sulfadiazine 1 % Topical Cream RxNorm: 969456 TOP apply to affected area with each dressing change 12/19/2012 12/25/2013 Inactive cephalexin 500 mg tablet RxNorm: 389081 1 Tablet(s) PO TID 12/11/2012 12/17/2012 Inactive digoxin 125 mcg tablet RxNorm: 6370031 1 Tablet(s) PO daily 10/30/2012 02/12/2013 Inactive digoxin 125 mcg tablet RxNorm: 7023554 2 tab tue th one other days Tablet(s) PO daily 10/23/2012 10/29/2012 Inactive lisinopril 10 mg tablet RxNorm: 196628 1 Tablet(s) PO daily 10/17/2012 08/14/2013 Inactive Cipro 500 mg tablet RxNorm: 570004 1 Tablet(s) PO BID 09/13/2012 09/19/2012 Inactive Coumadin 1 mg tablet RxNorm: 842912 1 Tablet(s) PO daily 09/03/2012 09/02/2012 Inactive Coumadin 1 mg tablet RxNorm: 135779 1 Tablet(s) PO daily 09/03/2012 12/21/2012 Inactive Coumadin 2 mg tablet RxNorm: 011851 Tablet(s) PO 07/25/2012 12/20/2012 Inactive 5 mg daily digoxin 125 mcg tablet RxNorm: 2312622 1 Tablet(s) PO daily 06/28/2012 10/22/2012 Inactive Coumadin 2 mg tablet RxNorm: 996546 Tablet(s) PO 06/27/2012 07/24/2012 Inactive 5mg daily except 4mg on monday Coumadin 2 mg tablet RxNorm: 373737 Tablet(s) PO 06/19/2012 06/26/2012 Inactive 5mg e mon thur sat sun4mg mon(has 2mg and 1 mg tab) digoxin 125 mcg tablet RxNorm: 3234853 1 Tablet(s) PO daily 05/29/2012 06/27/2012 Inactive Coumadin 2 mg tablet RxNorm: 004034 Tablet(s) PO 05/15/2012 06/18/2012 Inactive 5mg tue thur sat sun4mg mon frid(has 2mg and 1 mg tab) Coumadin 2 mg tablet RxNorm: 794185 Tablet(s) PO 04/25/2012 05/14/2012 Inactive 5mg tue thru sat4mg mond sun(has 2mg and 1 mg tab) Metanx 3 mg-35 mg-2 mg tablet RxNorm: 1 Tablet(s) PO BID 04/18/2012 12/24/2013 Inactive dicyclomine 20 mg tablet RxNorm: 971440 1 Tablet(s) PO 04/18/2012 06/23/2013 Inactive one ac dinner and up to tid prn digoxin 125 mcg tablet RxNorm: 3726272 Tablet(s) PO daily except .25 on Tuesdays and 04/09/2012 05/28/2012 Inactive omeprazole 20 mg tablet,delayed release RxNorm: 487128 1 Tablet(s) PO BID 04/09/2012 04/03/2013 Inactive digoxin 125 mcg tablet RxNorm: 9172581 1 Tablet(s) PO UD daily except none on Tuesdays and 03/13/2012 04/08/2012 Inactive Premarin 0.625 mg/gram Vaginal Cream RxNorm: 562274 1 Application VAG 1 applicator per vagina 3 times per week 02/20/2012 02/13/2013 Inactive omeprazole 20 mg tablet,delayed release RxNorm: 586573 1 Tablet(s) PO BID 02/13/2012 04/08/2012 Inactive Vesicare 10 mg tablet RxNorm: 641028 1 Tablet(s) PO QHS 02/13/2012 02/06/2013 Inactive Diflucan 150 mg tablet RxNorm: 663006 1 Tablet(s) PO daily 02/13/2012 02/19/2012 Inactive omeprazole 20 mg tablet,delayed release RxNorm: 206087 1 Tablet(s) PO BID 01/06/2012 02/12/2012 Inactive Calcium 600 + D(3) 600 mg (1,500)-200 unit Tab RxNorm: 955692 2 Tablet(s) PO BID 01/06/2012 08/31/2015 Inactive diltiazem 90 mg tablet RxNorm: 596350 1/2 Tablet(s) PO QPM 12/26/2011 02/12/2013 Inactive also 180 q am diltiazem ER 180 mg Cap RxNorm: 751235 1 Capsule(s) PO QAM 12/26/2011 04/08/2012 Inactive 45mg q hs Flagyl 500 mg Tab RxNorm: 544445 1 Tablet(s) PO BID 12/14/2011 12/20/2011 Inactive dicyclomine 10 mg Cap RxNorm: 276296 1 Capsule(s) PO AC & HS 12/01/2011 12/25/2011 Inactive Levaquin 500 mg Tab RxNorm: 991881 1 Tablet(s) PO daily 11/23/2011 11/29/2011 Inactive Rocephin 500 mg Solution for Injection RxNorm: 170910 Inj 11/23/2011 11/23/2011 Inactive acyclovir 400 mg Tab RxNorm: 802689 1 Tablet(s) PO QID 11/10/2011 11/19/2011 Inactive acyclovir 400 mg Tab RxNorm: 583218 1 Tablet(s) PO QID 11/10/2011 11/09/2011 Inactive lisinopril 20 mg Tab RxNorm: 289682 1 Tablet(s) PO daily 10/03/2011 11/27/2011 Inactive lisinopril 20 mg Tab RxNorm: 881760 1 Tablet(s) PO daily 08/08/2011 10/02/2011 Inactive Reclast 5 mg/100 mL IV RxNorm: 986798 Milliliter(s) IV Yearly 06/08/2011 01/16/[address] Hansen manages Rocephin 500 mg Solution for Injection RxNorm: 537516 1 Milliliter(s) Inj 03/04/2011 08/08/2011 Inactive Ceftin 500 mg Tab RxNorm: 789658 1 Tablet(s) PO BID 03/04/2011 08/08/2011 Inactive Vitamin D3 1,000 unit tablet RxNorm: 454792 2 Tablet(s) PO daily No Start Date Active Stool Softener 100 mg tablet RxNorm: 8564283 2 Tablet(s) PO QHS No Start Date Active Beano tablet RxNorm: 2-3 Tablet(s) PO as needed No Start Date Active Probiotic Pearls 15 mg (1 billion cell) capsule,delayed release RxNorm: 1 Capsule(s) PO daily No Start Date Active Lipitor 10 mg tablet RxNorm: 766499 1 Tablet(s) PO daily No Start Date Active Miralax 17 gram oral powder packet RxNorm: 593451 1/2 packet PO QHS No Start Date Active multivitamin Tab RxNorm: 1 Tablet(s) PO daily No Start Date Active Tylenol Extra Strength 500 mg tablet RxNorm: 490940 2 Tablet(s) PO as needed No Start Date Active Combigan 0.2 %-0.5 % eye drops RxNorm: 544239 1 Drop(s) OPH BID No Start Date Active 1 drop twice daily left eye Lexapro 5 mg tablet RxNorm: 366658 1 Tablet(s) PO daily No Start Date Active Tatiana Allergy 180 mg tablet RxNorm: 867325 1 Tablet(s) PO daily No Start Date Active Lotemax 0.5 % eye drops,suspension RxNorm: 948624 1 Drop(s) OPH right eye BID No Start Date Active Levoxyl 50 mcg tablet RxNorm: 856679 1 Tablet(s) PO daily No Start Date 01/15/2013 Inactive lisinopril-hydrochlorothiazide 20 mg-25 mg Tab RxNorm: 053715 1 Tablet(s) PO daily No Start Date 08/07/2011 Inactive Metanx 3 mg-35 mg-2 mg tablet RxNorm: 1 Tablet(s) PO daily No Start Date 04/17/2012 Inactive diltiazem CD 120 mg capsule,extended release 24 hr RxNorm: 691499 1 Capsule(s) PO daily No Start Date 09/28/2015 Inactive lisinopril 20 mg tablet RxNorm: 968572 Tablet(s) PO No Start Date Active Lumigan 0.01 % Eye Drops RxNorm: 4762453 1 Drop(s) OPH daily Left eye No Start Date 12/10/2013 Inactive prednisolone acetate 1 % Eye Drops, Susp RxNorm: 2653402 1 Drop(s) OPH BID 1 drop right eye am and hs No Start Date 11/02/2015 Inactive Eliquis 5 mg tablet RxNorm: 4618568 1 Tablet(s) PO BID No Start Date 06/08/2016 Inactive potassium gluconate (bulk) Misc RxNorm: Miscellaneous No Start Date 12/25/2011 Inactive Calcium 600 + D(3) 600 mg (1,500)-200 unit Tab RxNorm: 036019 3 Tablet(s) PO daily No Start Date 2012 Inactive Zyrtec 10 mg tablet RxNorm: 6584255 1 Tablet(s) PO daily No Start Date 08/02/2016 Inactive Synthroid 100 mcg tablet RxNorm: 690100 1 Tablet(s) PO daily No Start Date 09/04/2013 Inactive metoprolol succinate ER 50 mg tablet,extended release 24 hr RxNorm: 962633 1 Tablet(s) PO daily No Start Date 03/23/2016 Inactive Carafate 100 mg/mL oral suspension RxNorm: 303755 2 Teaspoon(s) PO as needed with reflux symptoms No Start Date 06/03/2018 Inactive Metanx 3 mg-35 mg-2 mg tablet RxNorm: 1 Tablet(s) PO daily 2pm No Start Date 11/02/2015 Inactive Lexapro 5 mg tablet RxNorm: 557647 1 Tablet(s) PO daily No Start Date 08/18/2015 Inactive Iron (dried) oral RxNorm: 65373 oral No Start Date 11/02/2015 Inactive timolol 0.5 % Eye Drops RxNorm: 000016 1 Drop(s) OPH daily left eye No Start Date 12/18/2013 Inactive multivitamin Cap RxNorm: 1 Capsule(s) PO daily No Start Date 12/25/2011 Inactive dicyclomine 10 mg Cap RxNorm: 746280 2 Capsule(s) PO daily No Start Date 11/30/2011 Inactive silver sulfadiazine 1 % Topical Cream RxNorm: 402140 TOP apply to affected area with each dressing change No Start Date 12/18/2012 Inactive magnesium oxide 400 mg Tab RxNorm: 850169 1 Tablet(s) PO daily No Start Date 11/02/2015 Inactive Pradaxa 75 mg Cap RxNorm: 3703478 1 Capsule(s) PO BID No Start Date 04/09/2012 Inactive magnesium oxide 400 mg Tab RxNorm: 421929 2 Tablet(s) PO daily magnesium plus zinc No Start Date 12/25/2011 Inactive biotin 1000 mg RxNorm: 1 PO daily No Start Date 12/25/2011 Inactive Synthroid 50 mcg Tab RxNorm: 505597 Tablet(s) PO No Start Date 12/25/2011 Inactive diltiazem ER 180 mg Cap RxNorm: 751790 1 Capsule(s) PO daily No Start Date 12/25/2011 Inactive 1 D 3 1000 iu Oral RxNorm: Oral No Start Date 12/25/2011 Inactive Coumadin 2 mg tablet RxNorm: 053688 Tablet(s) PO No Start Date 04/24/2012 Inactive 5mg tue [id number] mon fri sat sun(has 2mg and 1 mg tab) dicyclomine 20 mg tablet RxNorm: 465987 Tablet(s) PO No Start Date 04/17/2012 Inactive one ac dinner and up to tid prn lactobacillus acidophilus tablet RxNorm: 1 Tablet(s) PO daily No Start Date 11/03/2015 Inactive Eliquis 2.5 mg tablet RxNorm: 9751521 1 Tablet(s) PO BID No Start Date 07/25/2017 Inactive Levoxyl 75 mcg Tab RxNorm: 697505 1 Tablet(s) PO daily No Start Date 10/02/2011 Inactive digoxin 125 mcg tablet RxNorm: 4132203 1 Tablet(s) PO daily No Start Date 03/12/2012 Inactive pantoprazole 40 mg tablet,delayed release RxNorm: 392911 1 Tablet(s) PO BID No Start Date 01/04/2016 Inactive cyclobenzaprine 5 mg tablet RxNorm: 658252 1/2 Tablet(s) PO Q8 PRN No Start Date 10/24/2016 Inactive diltiazem 90 mg Tab RxNorm: 026232 1/2 Tablet(s) PO QPM No Start Date 12/25/2011 Inactive Mirapex 1 mg Tab RxNorm: 539077 1 Tablet(s) PO QHS No Start Date 12/25/2011 Inactive Xanax 0.25 mg tablet RxNorm: 637064 1 Tablet(s) PO Q6 PRN No Start Date 11/10/2013 Inactive Premarin 0.625 mg/gram Vaginal Cream RxNorm: 798111 1 Application VAG 1 applicator per vagina 3 times per week No Start Date 02/19/2012 Inactive Synthroid 75 mcg Tab RxNorm: 690014 1 Tablet(s) PO daily No Start Date 04/17/2012 Inactive lisinopril 40 mg Tab RxNorm: 088225 1 Tablet(s) PO daily No Start Date 12/25/2011 Inactive Glucosamine Chondroitin Complex Advanced [id number]-1.65mg Tab RxNorm: 2 Tablet(s) PO daily No Start Date 08/08/2011 Inactive famotidine 20 mg tablet RxNorm: 941623 1 Tablet(s) PO QAM No Start Date 11/02/2015 Inactive cranberry extract 250 mg Tab RxNorm: 161110 2 Tablet(s) PO daily No Start Date 08/08/2011 Inactive Vitamin D3 1,000 unit capsule RxNorm: 040429 1 Capsule(s) PO daily No Start Date 08/31/2015 Inactive aspirin 81 mg Tab, Delayed Release RxNorm: 225029 1 Tablet(s) PO daily No Start Date 08/31/2015 Inactive diltiazem ER 120 mg capsule,extended release RxNorm: 984306 1 Capsule(s) PO daily patient would like 4 months at a time No Start Date 06/02/2013 Inactive omeprazole 20 mg Tab, Delayed Release RxNorm: 229105 2 Tablet(s) PO QHS No Start Date 2012 Inactive lisinopril 10 mg tablet RxNorm: 646594 1/2 Tablet(s) PO daily No Start Date 10/16/2012 Inactive Pred Forte 1 % Eye Drops RxNorm: 175447 1 Drop(s) OPH daily right eye No Start Date 12/25/2013 Inactive calcium carbonate 400 mg Chewable Tab RxNorm: 034752 1 Tablet(s) PO daily No Start Date 08/08/2011 Inactive Vesicare 10 mg tablet RxNorm: 319937 1 Tablet(s) PO QHS No Start Date 02/12/2012 Inactive Symbicort 160 mcg-4.5 mcg/actuation HFA aerosol inhaler RxNorm: 3120524 2 Puff(s) INH BID No Start Date 12/13/2017 Inactive potassium 99 mg tablet RxNorm: 1 Tablet(s) PO QPM No Start Date 12/25/2013 Inactive timolol 0.25 % Eye Drops RxNorm: 405877 1 Drop(s) OPH daily Left eye No Start Date 04/17/2012 Inactive diltiazem ER 90 mg capsule,extended release 12 hr RxNorm: 531260 1/2 Capsule(s) PO QPM No Start Date 04/28/2014 Inactive cyclobenzaprine 5 mg Tab RxNorm: 261039 1/2-1 Tablet(s) PO Q8 PRN No Start Date 12/25/2011 Inactive 1/2 - 1 tab q 8hrs prn muscle spasms Medication Administered Medication Codes Instructions Start Date Status Influenza Virus Vaccine 0.5 mL RxNorm: 04/23/2013 No longer Active Rocephin 500 mg Solution for Injection RxNorm: 719778 11/23/2011 No longer Active Immunizations Vaccine Codes [...] 04/18/2012 completed Assessments Condition Codes Effective Dates Gastro-esophageal reflux disease without esophagitis ICD-10: K21.9 ICD-9: 530.81 06/04/2018 Atrophy of thyroid (acquired) ICD-10: E03.4 ICD-9: 244.8 06/04/2018 Essential (primary) hypertension ICD-10: I10 ICD-9: 401.1 06/04/2018 Essential (primary) hypertension ICD-10: I10 ICD-9: 401.9 01/31/2018 Other fdc (current) drug therapy ICD-10: Z79.899 ICD-9: V58.83 [...] of breast ICD-10: Z12.31 ICD-9: V76.12 05/17/2016 First degree hemorrhoids ICD-10: K64.0 ICD-9: 455.6 [...] Item Item Code Result Date Free T4 [id number] FREE T4 1.19 ng/dL 05/08/2018 Digoxin Ord9 DIGOXIN 0.6 NG/ML 05/08/2018 Tsh Ord6 TSH (3rd IS) 10.58 uIU/mL 05/08/2018 Tsh Ord6 TSH (3rd IS) 1.07 uIU/mL 01/31/2018 Free T4 Knq157 FREE T4 1.63 ng/dL 01/31/2018 Digoxin Ord9 DIGOXIN 0.8 NG/ML 01/31/2018 C RAP A SC [id number] Strep A Negative 11/21/2016 Thyroid Antibodies 226187 THYROGLOBULIN ANTIBODY . 11/04/2016 Thyroid Antibodies 430017 THYROGLOBULIN ANTIBODY 919 IU/mL 11/04/2016 Thyroid Antibodies 470541 THYROID PEROXIDASE (TPO) AB . 11/04/2016 Thyroid Antibodies 428887 THYROID PEROXIDASE (TPO) AB 10 IU/mL 11/04/2016 Total T3 Ord42 TT3 0.64 ng/ml 11/03/2016 Free T4 Lgt632 FREE T4 1.39 ng/dL 11/02/2016 Tsh Ord6 [...] Differential Ord2 RDW 13.8 % 05/26/2015 Pt Isf9461 PT 25.0 seconds 05/26/2015 Pt Sfq1170 INR 2.4 05/26/2015 Pt Nxf5534 Low Intensity - 1.5-2.0 05/26/2015 Pt Ycj6651 Mod intensity - 2.0-3.0 05/26/2015 Pt Mhk9979 Hi intensity - 3.0-4.0 05/26/2015 Uric Acid [...] Digoxin Ord9 DIGOXIN 0.6 NG/ML 05/06/2015 Pt Liv8812 PT 23.3 seconds 05/06/2015 Pt Crw8139 INR 2.1 05/06/2015 Pt Zus4093 Low Intensity - 1.5-2.0 05/06/2015 Pt Fcb5606 Mod intensity - 2.0-3.0 05/06/2015 Pt Ngz9385 Hi intensity - 3.0-4.0 05/06/2015 Free T4 Ccq187 FREE T4 1.65 ng/dL 05/06/2015 Comp Metabolic Rmz408 NA 132 mEq/L 05/06/2015 Comp Metabolic Ykl011 K 4.1 mEq/L 05/06/2015 Comp Metabolic Ifx038 CL 98 mEq/L 05/06/2015 Comp Metabolic Mij308 CO2 27.0 mEq/L 05/06/2015 Comp Metabolic Kay994 ANION GAP 11 05/06/2015 Comp Metabolic Aku498 GLUCOSE 71 mg/dL 05/06/2015 Comp Metabolic Wsh742 Creat 0.7 mg/dL 05/06/2015 Comp Metabolic Xef008 eGFR 82 ml/min/1.73m2 05/06/2015 Comp Metabolic Pgg223 BUN 16 mg/dL 05/06/2015 Comp Metabolic Kkw079 B/C Ratio 22.2 Ratio 05/06/2015 Comp Metabolic Zxv583 CALCIUM 9.4 mg/dL 05/06/2015 Comp Metabolic Nze819 ALK PHOS 60 U/L 05/06/2015 Comp Metabolic Vzw823 AST(SGOT) 22 U/L 05/06/2015 Comp Metabolic Tnj299 ALT(SGPT) 24 U/L 05/06/2015 Comp Metabolic Kum289 BILI T 0.8 mg/dL 05/06/2015 Comp Metabolic Qnp749 ALBUMIN 4.3 g/dL 05/06/2015 Comp Metabolic Udp162 TPRO 7.6 g/dL 05/06/2015 Comp Metabolic Pui880 GLOB 3.3 g/dL 05/06/2015 Comp Metabolic Kvv265 A/G Ratio 1.3 Ratio 05/06/2015 Comp Metabolic Iso460 Osmo 264 mOsmo 05/06/2015 DIGOXIN 7466600 DIGOXIN 1.1 NG/ML 05/15/2013 PT/MC 3991534 PRO TIME 21.7 SEC 05/15/2013 PT/MC 4618778 INR MCMC 2.0 05/15/2013 CHEM 14 6854683 AST 24 U/L 04/23/2013 CHEM 14 1914987 ALT 31 IU/L 04/23/2013 CHEM 14 1684606 BUN 13 MG/DL 04/23/2013 CHEM 14 2048807 ALBUMIN 4.1 GM/DL 04/23/2013 CHEM 14 6426377 CHLORIDE 103 MMOL/L 04/23/2013 CHEM 14 5371814 BILI TOT 0.5 MG/DL 04/23/2013 CHEM 14 1086030 ALK PHOS 44 U/L 04/23/2013 CHEM 14 2317200 SODIUM 137 MMOL/L 04/23/2013 CHEM 14 5209976 CREATININE 0.61 MG/DL 04/23/2013 CHEM 14 9357472 CALCIUM 9.5 MG/DL 04/23/2013 CHEM 14 7049305 POTASSIUM 4.0 MMOL/L 04/23/2013 CHEM 14 3466352 PROT TOT 6.6 GM/DL 04/23/2013 CHEM 14 6136178 GLUCOSE 99 MG/DL 04/23/2013 CHEM 14 8636626 BICARB 27 MMOL/L 04/23/2013 CHEM 14 1002089 ANION GAP 7 MEQ/L 04/23/2013 GFR CALC 6872263 GFR AA >60 ML/MIN 04/23/2013 GFR CALC 7075231 GFR NON-AA >60 ML/MIN 04/23/2013 TSH 1697095 TSH 4.204 uIU/ML 04/23/2013 CBC 3119184 WBC 6.7 10e9/L 04/23/2013 CBC 2717233 RBC 4.19 10e12/L 04/23/2013 CBC 2565613 HGB 13.2 g/dL 04/23/2013 CBC 2835814 HCT DET 39.2 % 04/23/2013 CBC 2391768 MCV 93.6 fL 04/23/2013 CBC 8872651 MCH 31.5 pg 04/23/2013 CBC 0437582 MCHC 33.7 g/dL 04/23/2013 CBC 2983568 PLT 202 10e9/L 04/23/2013 CBC 7529550 MPV 11.4 fL 04/23/2013 CBC 2438571 YANIRA % 70.5 % 04/23/2013 CBC 5665094 LY % 19.6 % 04/23/2013 CBC 8853459 MON % 8.2 % 04/23/2013 CBC 8296047 EOS % 1.6 % 04/23/2013 CBC 9536418 BASO % 0.1 % 04/23/2013 CBC 8314284 RDW 13.7 % 04/23/2013 CBC 6076049 ABS YANIRA 4.72 10e9/L 04/23/2013 CBC 6401211 ABS LYMPH 1.31 10e9/L 04/23/2013 CBC 6276653 ABS MONO 0.55 10e9/L 04/23/2013 CBC 6620983 ABS EOS 0.11 10e9/L 04/23/2013 CBC 1798814 ABS BASO 0.01 10e9/L 04/23/2013 CBC 2384905 RDW-SD 45.7 fL 04/23/2013 PT/MC 6758202 PRO TIME 13.4 SEC 12/17/2012 PT/MC 0108994 INR MCMC 1.0 12/17/2012 PT/MC 8749955 PRO TIME 16.6 SEC 12/14/2012 PT/MC 9331870 INR MCMC 1.4 12/14/2012 PT/MC 3280500 PRO TIME 27.2 SEC 12/11/2012 PT/MC 0117620 INR MCMC 2.6 12/11/2012 DIGOXIN 4803299 DIGOXIN 2.1 NG/ML 03/08/2012 GFR CALC 7513152 GFR AA >60 ML/MIN 03/08/2012 GFR CALC 8792633 GFR NON-AA >60 ML/MIN 03/08/2012 CHEM 14 6203359 AST 16 U/L 03/08/2012 CHEM 14 4931473 ALT 14 IU/L 03/08/2012 CHEM 14 2924053 BUN 10 MG/DL 03/08/2012 CHEM 14 9936356 ALBUMIN 4.2 GM/DL 03/08/2012 CHEM 14 4189452 CHLORIDE 100 MMOL/L 03/08/2012 CHEM 14 4666869 BILI TOT 0.5 MG/DL 03/08/2012 CHEM 14 3510985 ALK PHOS 59 U/L 03/08/2012 CHEM 14 9796423 SODIUM 136 MMOL/L 03/08/2012 CHEM 14 7673390 CREATININE 0.65 MG/DL 03/08/2012 CHEM 14 5091067 CALCIUM 9.4 MG/DL 03/08/2012 CHEM 14 9238783 POTASSIUM 3.9 MMOL/L 03/08/2012 CHEM 14 1326371 PROT TOT 6.7 GM/DL 03/08/2012 CHEM 14 6994999 GLUCOSE 90 MG/DL 03/08/2012 CHEM 14 4868036 BICARB 30 MMOL/L 03/08/2012 CHEM 14 8084128 ANION GAP 6 MEQ/L 03/08/2012 CHEM 14 6688468 AST 16 U/L 11/23/2011 CHEM 14 5704270 ALT 14 IU/L 11/23/2011 CHEM 14 3261328 BUN 11 MG/DL 11/23/2011 CHEM 14 5764280 ALBUMIN 4.1 GM/DL 11/23/2011 CHEM 14 9049770 CHLORIDE 100 MMOL/L 11/23/2011 CHEM 14 4249541 BILI TOT 0.5 MG/DL 11/23/2011 CHEM 14 1593951 ALK PHOS 50 U/L 11/23/2011 CHEM 14 3319311 SODIUM 135 MMOL/L 11/23/2011 CHEM 14 4309132 CREATININE 0.57 MG/DL 11/23/2011 CHEM 14 9671849 CALCIUM 9.1 MG/DL 11/23/2011 CHEM 14 0556031 POTASSIUM 4.5 MMOL/L 11/23/2011 CHEM 14 8072480 PROT TOT 6.5 GM/DL 11/23/2011 CHEM 14 9035630 GLUCOSE 89 MG/DL 11/23/2011 CHEM 14 4294402 BICARB 28 MMOL/L 11/23/2011 CHEM 14 6990547 ANION GAP 7 MEQ/L 11/23/2011 GFR CALC 9110707 GFR AA >60 ML/MIN 11/23/2011 GFR CALC 7767073 GFR NON-AA >60 ML/MIN 11/23/2011 CBC 6119542 WBC 5.1 10e9/L 11/23/2011 CBC 8609314 RBC 4.06 10e12/L 11/23/2011 CBC 1973979 HGB 12.5 g/dL 11/23/2011 CBC 7074472 HCT DET 37.3 % 11/23/2011 CBC 8503649 MCV 91.9 fL 11/23/2011 CBC 9843202 MCH 30.8 pg 11/23/2011 CBC 8021268 MCHC 33.5 g/dL 11/23/2011 CBC 8463367 PLT 222 10e9/L 11/23/2011 CBC 8908038 MPV 10.8 fL 11/23/2011 CBC 9430493 YANIRA % 64.2 % 11/23/2011 CBC 6955773 LY % 22.3 % 11/23/2011 CBC 4854251 MON % 11.3 % 11/23/2011 CBC 1670762 EOS % 1.8 % 11/23/2011 CBC 3570481 BASO % 0.4 % 11/23/2011 CBC 5086357 RDW 13.6 % 11/23/2011 CBC 3809985 ABS YANIRA 3.27 10e9/L 11/23/2011 CBC 7241759 ABS LYMPH 1.14 10e9/L 11/23/2011 CBC 2854520 ABS MONO 0.58 10e9/L 11/23/2011 CBC 7847078 ABS EOS 0.09 10e9/L 11/23/2011 CBC 6892366 ABS BASO 0.02 10e9/L 11/23/2011 CBC 4859734 RDW-SD 44.5 fL 11/23/2011 UA 11723 Specific [place] 1.005 03/04/2011 UA 77691 PH 6 03/04/2011 UA 39656 GLUCOSE N 03/04/2011 UA 15878 Protein N 03/04/2011 UA 62913 Blood ++ 03/04/2011 UA 51662 Bilirubin N 03/04/2011 UA 78827 Ketones N 03/04/2011 UA 89059 Urobilinogen N 03/04/2011 UA 14027 Nitrite N 03/04/2011 UA 02787 Leukocytes N 03/04/2011 URINALYSIS NONAUTO W/O SCOPE 84114 Specific [place] 1.010 DateTime(Free Text in Aprima) URINALYSIS NONAUTO W/O SCOPE 78441 PH 6.5 DateTime(Free Text in Aprima) URINALYSIS NONAUTO W/O SCOPE 21194 GLUCOSE neg DateTime(Free Text in Aprima) URINALYSIS NONAUTO W/O SCOPE 05242 Protein neg DateTime(Free Text in Aprima) URINALYSIS NONAUTO W/O SCOPE 40576 Blood 3+ DateTime(Free Text in Aprima) URINALYSIS NONAUTO W/O SCOPE 72055 Bilirubin neg DateTime(Free Text in Aprima) URINALYSIS NONAUTO W/O SCOPE 39742 Ketones neg DateTime(Free Text in Aprima) URINALYSIS NONAUTO W/O SCOPE 65869 Urobilinogen neg DateTime(Free Text in Aprima) URINALYSIS NONAUTO W/O SCOPE 70524 Nitrite neg DateTime(Free Text in Aprima) URINALYSIS NONAUTO W/O SCOPE 27611 Leukocytes neg DateTime(Free Text in Aprima) URINALYSIS NONAUTO W/O SCOPE 11484 Specific [place] 1.010 DateTime(Free Text in Aprima) URINALYSIS NONAUTO W/O SCOPE 76031 PH 5 DateTime(Free Text in Aprima) URINALYSIS NONAUTO W/O SCOPE 76223 GLUCOSE neg DateTime(Free Text in Aprima) URINALYSIS NONAUTO W/O SCOPE 27963 Protein neg DateTime(Free Text in Aprima) URINALYSIS NONAUTO W/O SCOPE 47615 Blood 3+ DateTime(Free Text in Aprima) URINALYSIS NONAUTO W/O SCOPE 35387 Bilirubin neg DateTime(Free Text in Aprima) URINALYSIS NONAUTO W/O SCOPE 80448 Ketones neg DateTime(Free Text in Aprima) URINALYSIS NONAUTO W/O SCOPE 77895 Urobilinogen neg DateTime(Free Text in Aprima) URINALYSIS NONAUTO W/O SCOPE 41609 Nitrite neg DateTime(Free Text in Aprima) URINALYSIS NONAUTO W/O SCOPE 28531 Leukocytes neg DateTime(Free Text in Aprima) URINALYSIS NONAUTO W/O SCOPE 80485 Specific [place] 1.005 DateTime(Free Text in Aprima) URINALYSIS NONAUTO W/O SCOPE 19563 PH 8.5 DateTime(Free Text in Aprima) URINALYSIS NONAUTO W/O SCOPE 45190 GLUCOSE neg DateTime(Free Text in Aprima) URINALYSIS NONAUTO W/O SCOPE 25885 Protein neg DateTime(Free Text in Aprima) URINALYSIS NONAUTO W/O SCOPE 20741 Blood 1+ DateTime(Free Text in Aprima) URINALYSIS NONAUTO W/O SCOPE 81492 Bilirubin neg DateTime(Free Text in Aprima) URINALYSIS NONAUTO W/O SCOPE 36040 Ketones neg DateTime(Free Text in Aprima) URINALYSIS NONAUTO W/O SCOPE 71036 Urobilinogen neg DateTime(Free Text in Aprima) URINALYSIS NONAUTO W/O SCOPE 37066 Nitrite neg DateTime(Free Text in Aprima) URINALYSIS NONAUTO W/O SCOPE 36643 Leukocytes neg DateTime(Free Text in Aprima) URINALYSIS NONAUTO W/O SCOPE 11112 Specific [place] 1.005 DateTime(Free Text in Aprima) URINALYSIS NONAUTO W/O SCOPE 49111 PH 7 DateTime(Free Text in Aprima) URINALYSIS NONAUTO W/O SCOPE 74146 GLUCOSE neg DateTime(Free Text in Aprima) URINALYSIS NONAUTO W/O SCOPE 91482 Protein neg DateTime(Free Text in Aprima) URINALYSIS NONAUTO W/O SCOPE 03403 Blood large DateTime(Free Text in Aprima) URINALYSIS NONAUTO W/O SCOPE 25007 Bilirubin neg DateTime(Free Text in Aprima) URINALYSIS NONAUTO W/O SCOPE 15650 Ketones neg DateTime(Free Text in Aprima) URINALYSIS NONAUTO W/O SCOPE 72716 Urobilinogen 0.2 DateTime(Free Text in Aprima) URINALYSIS NONAUTO W/O SCOPE 34226 Nitrite neg DateTime(Free Text in Aprima) URINALYSIS NONAUTO W/O SCOPE 03224 Leukocytes neg DateTime(Free Text in Aprima) URINALYSIS NONAUTO W/O SCOPE 16982 Specific [place] 1.005 DateTime(Free Text in Aprima) URINALYSIS NONAUTO W/O SCOPE 36643 PH 7.5 DateTime(Free Text in Aprima) URINALYSIS NONAUTO W/O SCOPE 77058 GLUCOSE DateTime(Free Text in Aprima) URINALYSIS NONAUTO W/O SCOPE 54274 Protein trace DateTime(Free Text in Aprima) URINALYSIS NONAUTO W/O SCOPE 02314 Blood 4+ DateTime(Free Text in Aprima) URINALYSIS NONAUTO W/O SCOPE 04053 Bilirubin DateTime(Free Text in Aprima) URINALYSIS NONAUTO W/O SCOPE 81960 Ketones DateTime(Free Text in Aprima) URINALYSIS NONAUTO W/O SCOPE 78277 Urobilinogen DateTime(Free Text in Aprima) URINALYSIS NONAUTO W/O SCOPE 24125 Nitrite DateTime(Free Text in Aprima) URINALYSIS NONAUTO W/O SCOPE 90656 Leukocytes trace DateTime(Free Text in Aprima) Review [...] FLU VACC PRSV FREE INC ANTIG CPT-4: 67561 03/27/2017 PPPS, SUBSEQ VISIT CPT- 4: G0439 01/23/2017 URINALYSIS NONAUTO W/O SCOPE CPT-4: 47416 05/17/2016 ADMIN INFLUENZA VIRUS VAC CPT-4: G0008 03/24/2016 FLU VACC PRSV FREE INC ANTIG CPT-4: 52154 03/24/2016 ADMIN PNEUMOCOCCAL VACCINE SNOMED CT: 26317811 CPT-4: G0009 05/13/2015 PNEUMOCOCCAL VACC [address]: 68313772 CPT-4: 49445 05/13/2015 Pneumococcal Polysaccharide Vaccine, 23-Valent, Ad Assigned to/Mela Bledsoe CPT-4: 09397Sknhhra 07/11/2014 ADMIN PNEUMOCOCCAL VACCINE SNOMED CT: 10254998 CPT-4: G0009 07/11/2014 URINALYSIS NONAUTO W/O SCOPE CPT-4: 45204 05/14/2014 URINALYSIS NONAUTO W/O SCOPE CPT-4: 07319 05/06/2014 URINALYSIS NONAUTO W/O SCOPE CPT-4: 89098 04/29/2014 ADMIN INFLUENZA VIRUS VAC CPT-4: G0008 03/20/2014 FLU VAC NO PRSV 4 SCOTT 3 YRS+ Assigned to/Mela Bledsoe CPT-4: 56685Pfryfig 03/20/2014 URINALYSIS NONAUTO W/O SCOPE CPT-4: 77564 07/29/2013 URINALYSIS NONAUTO W/O SCOPE CPT-4: 61284 07/01/2013 URINALYSIS NONAUTO W/O SCOPE CPT-4: 87170 06/20/2013 ROUTINE VENIPUNCTURE CPT- 4: 71158 05/15/2013 ROUTINE VENIPUNCTURE CPT- 4: 91736 04/23/2013 ADMIN INFLUENZA VIRUS VAC CPT-4: G0008 04/23/2013 FLULAVAL VACC, 3 YRS & >, IM CPT-4: Q2036 04/23/2013 ROUTINE VENIPUNCTURE CPT- 4: 08205 12/17/2012 ROUTINE VENIPUNCTURE CPT- 4: 25967 12/14/2012 ROUTINE VENIPUNCTURE CPT- 4: 77584 12/11/2012 PRESCRIP TRANSMIT VIA ERX SY CPT-4: G8553 12/11/2012 PRESCRIP TRANSMIT VIA ERX SY CPT-4: G8553 10/30/2012 URINALYSIS NONAUTO W/O SCOPE CPT-4: 95862 09/13/2012 ADMIN INFLUENZA VIRUS VAC CPT-4: G0008 04/18/2012 FLULAVAL VACC, 3 YRS & >, IM CPT-4: Q2036 04/18/2012 URINALYSIS NONAUTO W/O SCOPE CPT-4: 95570 03/13/2012 ROUTINE VENIPUNCTURE CPT- 4: 10053 03/08/2012 URINALYSIS NONAUTO W/O SCOPE CPT-4: 12764 02/13/2012 PRESCRIP TRANSMIT VIA ERX SY CPT-4: G8553 02/13/2012 ROCEPHIN, PER 250 MG CPT- 4: J0696 11/23/2011 ROUTINE VENIPUNCTURE CPT- 4: 93785 11/23/2011 URINALYSIS NONAUTO W/O SCOPE CPT-4: 76308 11/23/2011 PRESCRIP TRANSMIT VIA ERX SY CPT-4: G8553 11/23/2011 REMOVE IMPACTED EAR WAX UNI CPT-4: 71367 10/17/2011 PRESCRIP TRANSMIT VIA ERX SY CPT-4: G8553 10/03/2011 PRESCRIP TRANSMIT VIA ERX SY CPT-4: G8553 08/08/2011 URINALYSIS NONAUTO W/O SCOPE CPT-4: 81892 03/15/2011 URINALYSIS NONAUTO W/O SCOPE CPT-4: 01343 03/04/2011 THER/PROPH/DIAG INJ SC/IM CPT-4: 40709 03/04/2011 ROCEPHIN, PER 250 MG CPT- 4: J0696 03/04/2011 Vital Signs Date Vital 06/04/2018 Blood Pressure 1: 124/72 Code: 8480-6 BMI: 21.3 Code: 24059-7 Heart Rate 1: 98 bpm Height: 5' Weight: 109 lbs 01/31/2018 Blood Pressure 1: 116/68 Code: 8480-6 BMI: 21.1 Code: 52703-6 Heart Rate 1: 89 bpm Height: 5' SpO2: 98% Weight: 108 lbs 01/17/2018 Blood Pressure 1: 134/74 Code: 8480-6 BMI: 21.3 Code: 25645-0 Heart Rate 1: 74 bpm Height: 5' SpO2: 96% Waist Measure (cm): 71 cm Weight: 109 lbs 12/14/2017 Blood Pressure 1: 150/78 Code: 8480-6 BMI: 21.5 Code: 93595-5 Heart Rate 1: 77 bpm Height: 5' SpO2: 98% Temperature: 36.7 (C) / 98.1 (F) Weight: 110 lbs 12/07/2017 Blood Pressure 1: 134/70 Code: 8480-6 Heart Rate 1: 76 bpm Height: SpO2: 98% Temperature: 36.8 (C) / 98.2 (F) Weight: 11/14/2017 Blood Pressure 1: 152/84 Code: 8480-6 BMI: 21.9 Code: 28518-1 Heart Rate 1: 95 bpm Height: 5' SpO2: 93% Weight: 112 lbs 03/27/2017 Blood Pressure 1: 122/70 Code: 8480-6 BMI: 21.3 Code: 60454-8 Heart Rate 1: 75 bpm Height: 5' Weight: 109 lbs 01/23/2017 BMI: 21.5 Code: 16634-0 Height: 5' Weight: 110 lbs 01/19/2017 Blood Pressure 1: 112/60 Code: 8480-6 BMI: 21.5 Code: 28279-8 Heart Rate 1: 54 bpm Height: 5' SpO2: 97% Weight: 110 lbs 11/29/2016 Blood Pressure 1: 126/68 Code: 8480-6 Height: 5' Weight: 11/23/2016 Blood Pressure 1: 130/72 Code: 8480-6 BMI: 21.9 Code: 96641-9 Heart Rate 1: 48 bpm Height: 5' SpO2: 97% Temperature: 36.7 (C) / 98.0 (F) Weight: 112 lbs 11/21/2016 Blood Pressure 1: 134/76 Code: 8480-6 BMI: 21.9 Code: 17124-0 Heart Rate 1: 41 bpm Height: 5' SpO2: 94% Temperature: 36.9 (C) / 98.4 (F) Weight: 112 lbs 11/08/2016 Blood Pressure 1: 126/74 Code: 8480-6 Heart Rate 1: 82 bpm Height: 5' SpO2: 94% Weight: 11/02/2016 Blood Pressure 1: 112/66 Code: 8480-6 Heart Rate 1: 72 bpm Height: 5' SpO2: 95% Weight: 10/27/2016 Blood Pressure 1: 130/64 Code: 8480-6 BMI: 21.7 Code: 86618-8 Heart Rate 1: 81 bpm Height: 5' SpO2: 96% Weight: 111 lbs 08/31/2016 Blood Pressure 1: 132/72 Code: 8480-6 BMI: 22.5 Code: 48907-1 Heart Rate 1: 66 bpm Height: 5' Weight: 115 lbs 07/27/2016 Blood Pressure 1: 166/74 Code: 8480-6 BMI: 23.2 Code: 28979-9 Heart Rate 1: 48 bpm Height: 5' SpO2: 90% Temperature: 36.8 (C) / 98.2 (F) Weight: 119 lbs 06/23/2016 Blood Pressure 1: 128/70 Code: 8480-6 BMI: 22.3 Code: 22587-0 Heart Rate 1: 75 bpm Height: 5' SpO2: 97% Weight: 114 lbs 06/09/2016 BMI: 22.7 Code: 55336-2 Heart Rate 1: 73 bpm Height: 5' SpO2: 97% Weight: 116 lbs 05/25/2016 Blood Pressure 1: 138/62 Code: 8480-6 BMI: 22.8 Code: 32706-9 Heart Rate 1: 76 bpm Height: 5' Weight: 117 lbs 05/17/2016 Blood Pressure 1: 116/70 Code: 8480-6 BMI: 22.8 Code: 59122-5 Heart Rate 1: 74 bpm Height: 5' SpO2: 94% Weight: 117 lbs 03/24/2016 Blood Pressure 1: 154/78 Code: 8480-6 BMI: 22.5 Code: 36735-0 Heart Rate 1: 78 bpm Height: 5' SpO2: 97% Weight: 115 lbs 02/02/2016 Blood Pressure 1: 132/70 Code: 8480-6 BMI: 22.3 Code: 76809-9 Heart Rate 1: 74 bpm Height: 5' SpO2: 94% Weight: 114 lbs 2016 Blood Pressure 1: 120/62 Code: 8480-6 BMI: 22.0 Code: 18601-6 Heart Rate 1: 68 bpm Height: 5' Weight: 112 lbs 8 oz 12/21/2015 Blood Pressure 1: 122/82 Code: 8480-6 BMI: 21.9 Code: 24639-9 Heart Rate 1: 83 bpm Height: 5' SpO2: 93% Temperature: 37.1 (C) / 98.7 (F) Weight: 112 lbs 11/03/2015 Blood Pressure 1: 122/72 Code: 8480-6 BMI: 22.4 Code: 01978-3 Heart Rate 1: 62 bpm Height: 5' Weight: 114 lbs 8 oz 10/19/2015 Blood Pressure 1: 138/62 Code: 8480-6 BMI: 21.1 Code: 06063-9 Heart Rate 1: 79 bpm Height: 5' Weight: 108 lbs 10/13/2015 Blood Pressure 1: 120/62 Code: 8480-6 BMI: 21.0 Code: 77861-1 Heart Rate 1: 76 bpm Height: 5' SpO2: 98% Weight: 108 lbs 09/29/2015 Blood Pressure 1: 130/70 Code: 8480-6 BMI: 20.2 Code: 41829-1 Heart Rate 1: 72 bpm Height: 5' Weight: 104 lbs 09/15/2015 Blood Pressure 1: 128/78 Code: 8480-6 BMI: 19.9 Code: 21929-9 Heart Rate 1: 72 bpm Height: 5' Weight: 102 lbs 8 oz 09/01/2015 Blood Pressure 1: 128/68 Code: 8480-6 BMI: 19.8 Code: 97326-7 Height: 5' Weight: 102 lbs 05/26/2015 Blood Pressure 1: 140/68 Code: 8480-6 BMI: 19.0 Code: 26536-6 Heart Rate 1: 70 bpm Height: 5' Weight: 98 lbs 05/21/2015 Blood Pressure 1: 140/78 Code: 8480-6 BMI: 19.2 Code: 45928-5 Heart Rate 1: 85 bpm Height: 5' SpO2: 95% Weight: 99 lbs 05/07/2015 Blood Pressure 1: 140/82 Code: 8480-6 BMI: 19.0 Code: 84541-4 Heart Rate 1: 76 bpm Height: 5' Weight: 98 lbs 03/23/2015 Blood Pressure 1: 142/60 Code: 8480-6 BMI: 18.6 Code: 03587-4 Heart Rate 1: 52 bpm Height: 5' Weight: 96 lbs 03/09/2015 Blood Pressure 1: 138/74 Code: 8480-6 BMI: 18.8 Code: 25805-1 Heart Rate 1: 60 bpm Height: 5' Weight: 97 lbs 10/30/2014 Blood Pressure 1: 112/82 Code: 8480-6 BMI: 19.0 Code: 12260-8 Heart Rate 1: 64 bpm Height: 5' Weight: 98 lbs 07/11/2014 Blood Pressure 1: 146/70 Code: 8480-6 BMI: 18.8 Code: 70488-3 Heart Rate 1: 68 bpm Height: 5' Weight: 97 lbs 05/20/2014 Blood Pressure 1: 142/76 Code: 8480-6 BMI: 18.6 Code: 15736-5 Heart Rate 1: 78 bpm Height: 5' Weight: 96 lbs 04/29/2014 Blood Pressure 1: 138/62 Code: 8480-6 BMI: 18.3 Code: 44298-2 Heart Rate 1: 80 bpm Height: 5' Weight: 94 lbs 8 oz 03/20/2014 Blood Pressure 1: 142/68 Code: 8480-6 BMI: 18.6 Code: 99674-7 Heart Rate 1: 96 bpm Height: 5' Weight: 96 lbs 03/05/2014 Blood Pressure 1: 122/72 Code: 8480-6 BMI: 18.8 Code: 87968-2 Heart Rate 1: 82 bpm Height: 5' SpO2: 97% Weight: 97 lbs 01/29/2014 Blood Pressure 1: 124/78 Code: 8480-6 BMI: 18.8 Code: 03337-2 Heart Rate 1: 60 bpm Height: 5' Weight: 97 lbs 01/14/2014 Blood Pressure 1: 120/58 Code: 8480-6 BMI: 19.2 Code: 61614-2 Heart Rate 1: 56 bpm Height: 5' Temperature: 36.9 (C) / 98.4 (F) Weight: 99 lbs 12/25/2013 Blood Pressure 1: 118/78 Code: 8480-6 BMI: 19.2 Code: 39921-8 Heart Rate 1: 68 bpm Height: 5' Weight: 99 lbs 11/27/2013 Blood Pressure 1: 102/68 Code: 8480-6 BMI: 19.4 Code: 83039-0 Heart Rate 1: 56 bpm Height: 5' Weight: 100 lbs 09/12/2013 Blood Pressure 1: 142/62 Code: 8480-6 BMI: 19.7 Code: 84456-7 Heart Rate 1: 72 bpm Height: 5'1" Weight: 104 lbs 08/15/2013 Blood Pressure 1: 152/92 Code: 8480-6 Heart Rate 1: 96 bpm Weight: 102 lbs 08/01/2013 Blood Pressure 1: 122/68 Code: 8480-6 BMI: 19.1 Code: 82051-1 Heart Rate 1: 68 bpm Height: 5'1" Weight: 101 lbs 07/01/2013 Blood Pressure 1: 130/72 Code: 8480-6 BMI: 19.5 Code: 13053-8 Heart Rate 1: 80 bpm Height: 5'1" Temperature: 36.1 (C) / 97.0 (F) Weight: 103 lbs 05/29/2013 Blood Pressure 1: 126/72 Code: 8480-6 BMI: 19.3 Code: 53375-1 Heart Rate 1: 80 bpm Height: 5'1" Weight: 102 lbs 05/15/2013 Blood Pressure 1: 156/74 Code: 8480-6 BMI: 19.3 Code: 06712-0 Heart Rate 1: 88 bpm Height: 5'1" Weight: 102 lbs 04/23/2013 Blood Pressure 1: 140/82 Code: 8480-6 BMI: 19.3 Code: 10731-4 Heart Rate 1: 72 bpm Height: 5'1" Weight: 102 lbs 03/21/2013 Blood Pressure 1: 142/74 Code: 8480-6 Heart Rate 1: 92 bpm Weight: 103 lbs 01/16/2013 Blood Pressure 1: 120/56 Code: 8480-6 BMI: 20.0 Code: 83900-9 Heart Rate 1: 72 bpm Height: 5'1" Weight: 106 lbs 12/19/2012 Blood Pressure 1: 118/66 Code: 8480-6 Heart Rate 1: 84 bpm Weight: 12/10/2012 Blood Pressure 1: 132/62 Code: 8480-6 Heart Rate 1: 64 bpm Weight: 103 lbs 10/30/2012 Blood Pressure 1: 122/66 Code: 8480-6 BMI: 19.9 Code: 14317-5 Heart Rate 1: 61 bpm Height: 5'1" [...] 1: 118/72 Code: 8480-6 BMI: 21.0 Code: 10256-4 Heart Rate 1: 66 bpm Height: 5'1" Respiratory Rate: 16 bpm Weight: 111 lbs 2012 Blood Pressure 1: 122/62 Code: 8480-6 Heart Rate 1: 68 bpm Weight: 110 lbs 12/01/2011 Blood Pressure 1: 150/60 Code: 8480-6 BMI: 20.8 Code: 61834-9 Heart Rate 1: 60 bpm Height: 5'1" Respiratory Rate: 16 bpm Weight: 110 lbs 11/23/2011 Blood Pressure 1: 170/68 Code: 8480-6 BMI: 21.1 Code: 83645-6 Heart Rate 1: 64 bpm Height: 5'1" Temperature: 36.3 (C) / 97.3 (F) Weight: 111 lbs 8 oz 10/17/2011 Blood Pressure 1: 148/62 Code: 8480-6 Heart Rate 1: 74 bpm 10/03/2011 Blood Pressure 1: 102/48 Code: 8480-6 BMI: 21.4 Code: 65652-6 Heart Rate 1: 76 bpm Height: 5'1" Respiratory Rate: 16 bpm Weight: 113 lbs 08/08/2011 Blood Pressure 1: 128/60 Code: 8480-6 Heart Rate 1: 80 bpm Respiratory Rate: 16 bpm Weight: 113 lbs 05/09/2011 Blood Pressure 1: 130/62 Code: 8480-6 BMI: 20.7 Code: 57278-6 Heart Rate 1: 64 bpm Height: 5'1" Respiratory Rate: 16 bpm Weight: 109 lbs 8 oz 03/29/2011 Blood Pressure 1: 120/62 Code: 8480-6 BMI: 20.2 Code: 27931-8 Heart Rate 1: 66 bpm Height: 5'1" Respiratory Rate: 12 bpm Weight: 107 lbs 03/15/2011 Blood Pressure 1: 120/64 Code: 8480-6 BMI: 19.8 Code: 81038-9 Heart Rate 1: 76 bpm Height: 5'1" [...] contacts 03/20/2014 sat next to neighbor in [place] who had tonsillitis sore throat Pertinent Findings [...] data Encounters Encounter Performer Location Codes Date [id number]) 77214 EST. 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 PATIENT, LEVEL IV Diagnosis: Essential (primary) hypertension[ICD10: I10] Diagnosis: Atrophy of thyroid (acquired)[ICD10: E03.4] Diagnosis: Other fdc (current) drug therapy[ICD10: Z79.899] Karma Bahena MD, [facility] CPT-4: 65872 01/31/2018 ([id number]) 37208 EST. PATIENT, LEVEL IV Diagnosis: Essential (primary) hypertension[ICD10: I10] Diagnosis: Chronic atrial fibrillation[ICD10: I48.2] Diagnosis: Allergic rhinitis due to pollen[ICD10: J30.1] Diagnosis: Cough[ICD10: R05] Karma Bahena MD, [facility] CPT-4: 16858 12/14/2017 04110 EST. PATIENT, LEVEL IV Diagnosis: Other allergic rhinitis[ICD10: J30.89] Katharine Bahena MD, [facility] CPT- 4: 14254 12/07/2017 ([id number]) 25081 EST. 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 PATIENT, LEVEL IV Diagnosis: Essential (primary) hypertension[ICD10: I10] Diagnosis: Localized edema[ICD10: R60.0] Diagnosis: Encounter for immunization[ICD10: Z23] Diagnosis: Age-related osteoporosis without current pathological fracture[ICD10: M81.0] Karma Bahena MD [facility] CPT-4: 90786 03/27/2017 ([id number]) 74598 EST. PATIENT, LEVEL IV Diagnosis: Essential (primary) hypertension[ICD10: I10] Diagnosis: Chronic atrial fibrillation[ICD10: I48.2] Diagnosis: Dysphonia[ICD10: R49.0] Karma Bahena MD [facility] CPT-4: 63941 01/19/2017 ([id number]) Miscellaneous no charge Diagnosis: Cough[ICD10: R05] Diagnosis: Acute upper respiratory infection, unspecified[ICD10: J06.9] aLura Bahena MD, [facility] CPT-4: 80659 11/29/2016 70741 EST. PATIENT, LEVEL III Diagnosis: Cough[ICD10: R05] Diagnosis: Acute laryngopharyngitis[ICD10: J06.0] Katharine Bahena MD, [facility] CPT- 4: 71339 11/23/2016 ([id number]) 05047 EST. PATIENT, LEVEL III Diagnosis: Acute laryngopharyngitis[ICD10: J06.0] Laura Bahena MD [facility] CPT-4: 84367 11/21/2016 ([id number]) Miscellaneous no charge Diagnosis: Laceration without foreign body of right forearm, subsequent encounter[ICD10: S51.811D] Karma Bahena MD [facility] CPT-4: 41729 11/17/2016 ([id number]) Miscellaneous no charge Diagnosis: Laceration without foreign body of right forearm, subsequent encounter[ICD10: S51.811D] Karma Bahena MD [facility] CPT-4: 09728 11/14/2016 ([id number]) Miscellaneous no charge Diagnosis: Laceration without foreign body of right forearm, subsequent encounter[ICD10: S51.811D] Karma Bahena MD [facility] CPT-4: 61434 11/11/2016 ([id number]) Miscellaneous no charge Diagnosis: Laceration without foreign body of right forearm, subsequent encounter[ICD10: S51.811D] Karma Bahena MD, [facility] CPT-4: 67861 11/10/2016 ([id number]) 11959 EST. PATIENT, LEVEL II Diagnosis: Laceration without foreign body of right forearm, subsequent encounter[ICD10: S51.811D] Karma Bahena MD [facility] CPT-4: 53624 11/08/2016 ([id number]) 18855 EST. PATIENT, LEVEL IV Diagnosis: Atrophy of thyroid (acquired)[ICD10: E03.4] Diagnosis: Chronic atrial fibrillation[ICD10: I48.2] Diagnosis: Laceration without foreign body of right forearm, subsequent encounter[ICD10: S51.811D] Karma Bahena MD [facility] CPT-4: 16426 11/02/2016 ([id number]) 59936 EST. PATIENT, LEVEL III Diagnosis: Laceration without foreign body of right forearm, initial encounter[ICD10: S51.811A] Laura Bahena MD, [facility] CPT-4: 01152 10/27/2016 ([id number]) 60141 EST. PATIENT, LEVEL IV Diagnosis: Essential (primary) hypertension[ICD10: I10] Diagnosis: Chronic atrial fibrillation[ICD10: I48.2] Karma Bahena MD [facility] CPT-4: 72867 08/31/2016 ([id number]) 82852 EST. PATIENT, LEVEL IV Diagnosis: Localized edema[ICD10: R60.0] Diagnosis: Essential (primary) hypertension[ICD10: I10] Diagnosis: Abdominal distension (gaseous)[ICD10: R14.0] Karma Bahena MD, [facility] CPT-4: 38008 07/27/2016 ([id number]) 22236 EST. PATIENT, LEVEL IV Diagnosis: Essential (primary) hypertension[ICD10: I10] Diagnosis: Chronic atrial fibrillation[ICD10: I48.2] Diagnosis: Localized edema[ICD10: R60.0] Karma Bahena MD, [facility] CPT-4: 35720 06/23/2016 ([id number]) 40136 EST. PATIENT, LEVEL III Diagnosis: Localized edema[ICD10: R60.0] Karma Bahena MD, [facility] CPT-4: 68043 06/09/2016 ([id number]) 14548 EST. PATIENT, LEVEL III Diagnosis: Irritable bowel syndrome without diarrhea[ICD10: K58.9] Diagnosis: Pruritus ani[ICD10: L29.0] Karma Bahena MD [facility] CPT-4: 54822 05/25/2016 ([id number]) 26190 EST. PATIENT, LEVEL III Diagnosis: Abdominal distension (gaseous)[ICD10: R14.0] Diagnosis: Encounter for screening mammogram for malignant neoplasm of breast[ICD10: Z12.31] Karma Bahena MD [facility] CPT-4: 69021 05/17/2016 ([id number]) 92351 EST. PATIENT, LEVEL IV Diagnosis: Essential (primary) hypertension[ICD10: I10] Diagnosis: First degree hemorrhoids[ICD10: K64.0] Diagnosis: Encounter for immunization[ICD10: Z23] Karma Bahena MD [facility] CPT-4: 70983 03/24/2016 ([id number]) 84633 EST. PATIENT, LEVEL III Diagnosis: Epidermal cyst[ICD10: L72.0] Diagnosis: Essential (primary) hypertension[ICD10: I10] Diagnosis: Chronic atrial fibrillation[ICD10: I48.2] Diagnosis: 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[ICD10: Z79.899] Karma Bahena MD [facility] CPT-4: 39603 02/02/2016 ([id number]) 80687 EST. PATIENT, LEVEL III Diagnosis: Acute anal fissure[ICD10: K60.0] Karma Bahena MD, [facility] CPT-4: 32139 2016 ([id number]) 49699 EST. PATIENT, LEVEL III Diagnosis: Allergic rhinitis due to pollen[ICD10: J30.1] Diagnosis: Acute upper respiratory infection, unspecified[ICD10: J06.9] Laura Bahena MD, [facility] CPT-4: 04613 12/21/2015 ([id number]) 30800 EST. PATIENT, LEVEL III Diagnosis: Essential (primary) hypertension[ICD10: I10] Diagnosis: Chronic atrial fibrillation[ICD10: I48.2] Karma Bahena MD, [facility] CPT-4: 13118 11/03/2015 ([id number]) Miscellaneous no charge Diagnosis: Impacted cerumen, right ear[ICD10: H61.21] Katharine Bahena MD, [facility] CPT-4: 72545 10/19/2015 22713 EST. PATIENT, LEVEL IV Diagnosis: Impacted cerumen, right ear[ICD10: H61.21] Diagnosis: Other allergic rhinitis[ICD10: J30.89] Katharine Bahena MD, [facility] CPT- 4: 32183 10/13/2015 ([id number]) 17306 EST. PATIENT, LEVEL IV Diagnosis: Essential (primary) hypertension[ICD10: I10] Diagnosis: Chronic atrial fibrillation[ICD10: I48.2] Diagnosis: Urge incontinence[ICD10: N39.41] Diagnosis: Age-related osteoporosis without current pathological fracture[ICD10: M81.0] Karma Bahena MD [facility] CPT-4: 59667 09/29/2015 ([id number]) 50164 EST. PATIENT, LEVEL IV Diagnosis: Essential (primary) hypertension[ICD10: I10] Diagnosis: Chronic atrial fibrillation[ICD10: I48.2] Diagnosis: Irritable bowel syndrome without diarrhea[ICD10: K58.9] Diagnosis: Unspecified hemorrhoids[ICD10: K64.9] Karma Bahean MD, [facility] CPT-4: 08629 09/15/2015 ([id number]) 39059 EST. 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 PATIENT, LEVEL III Diagnosis: Hematuria, unspecified[ICD10: R31.9] Diagnosis: Other urethritis[ICD10: N34.2] Diagnosis: Other specified noninflammatory disorders of vagina[ICD10: N89.8] Karma Bahena MD, [facility] CPT-4: 17231 05/26/2015 45539 EST. PATIENT, LEVEL IV Diagnosis: Gout, unspecified[ICD10: M10.9] Karma Bahena MD, [facility] CPT-4: 74704 05/21/2015 ([id number]) 80281 EST. PATIENT, LEVEL IV Diagnosis: Chronic atrial fibrillation[ICD10: I48.2] Diagnosis: Irritable bowel syndrome without diarrhea[ICD10: K58.9] Diagnosis: Cystocele, unspecified[ICD10: N81.10] Diagnosis: Urge incontinence[ICD10: N39.41] Diagnosis: Fecal smearing[ICD10: R15.1] Diagnosis: Hypothyroidism, unspecified[ICD10: E03.9] Karma Bahena MD, [facility] CPT-4: 80600 05/07/2015 ([id number]) 46456 EST. PATIENT, LEVEL III Diagnosis: Atrial fibrillation[ICD9: 427.31] Diagnosis: Bloating[ICD9: 787.3] Karma Bahena MD, [facility] CPT-4: 17426 03/23/2015 ([id number]) 64394 EST. PATIENT, LEVEL IV Diagnosis: Abdominal pain[ICD9: 789.00] Diagnosis: Atrial fibrillation[ICD9: 427.31] Diagnosis: ENCNTR LONG-ANTICOAG USE[ICD9: V58.61] Karma Bahena MD, [facility] CPT-4: 26654 03/09/2015 ([id number]) 62855 EST. PATIENT, LEVEL IV Diagnosis: HEMATURIA NOS[ICD9: 599.70] Diagnosis: Atrial fibrillation[ICD9: 427.31] Diagnosis: HYPOTHYROIDISM[ICD9: 244.9] Karma Bahena MD, [facility] CPT-4: 00603 10/30/2014 ([id number]) 89513 EST. PATIENT, LEVEL IV Diagnosis: Atrial fibrillation[ICD9: 427.31] Diagnosis: ALLERGIC RHINITIS[ICD9: 477.9] Diagnosis: Need for pneumococcal vaccine[ICD9: V03.82] Diagnosis: Osteoarthritis[ICD9: 715.90] Diagnosis: Osteoporosis[ICD9: 733.00] Karma Bahena MD, [facility] CPT-4: 43162 07/11/2014 ([id number]) 12702 EST. PATIENT, LEVEL III Diagnosis: Urge incontinence[ICD9: 788.31] Diagnosis: Dysuria[ICD9: 788.1] Karma Bahena MD, [facility] CPT-4: 87065 05/20/2014 ([id number]) 88522 EST. PATIENT, LEVEL IV Diagnosis: Atrial fibrillation[ICD9: 427.31] Diagnosis: Hematuria[ICD9: 599.70] Diagnosis: Dysuria[ICD9: 788.1] Diagnosis: ESSENTIAL HYPERTENSION[ICD9: 401.9] Karma Bahena MD, [facility] CPT- 4: 33628 04/29/2014 ([id number]) 45490 EST. PATIENT, LEVEL IV Diagnosis: ESSENTIAL HYPERTENSION[ICD9: 401.9] Diagnosis: ALLERGIC RHINITIS[ICD9: 477.9] Karma Bahena MD, [facility] CPT-4: 14430 03/20/2014 ([id number]) 97542 EST. PATIENT, LEVEL IV Diagnosis: ESSENTIAL HYPERTENSION[ICD9: 401.9] Diagnosis: ATRIAL FIBRILLATION[ICD9: 427.31] Diagnosis: Irritable bowel[ICD9: 564.1] Karma Bahena MD, [facility] CPT-4: 63112 03/05/2014 ([id number]) 11127 EST. PATIENT, LEVEL IV Diagnosis: Esophageal reflux[ICD9: 530.81] Diagnosis: DIARRHEA[ICD9: 787.91] Diagnosis: ABDOM PAIN NOS SITE[ICD9: 789.00] Karma Bahena MD, [facility] CPT- 4: 41885 01/29/2014 ([id number]) 25734 EST. PATIENT, LEVEL III Diagnosis: Irritable bowel[ICD9: 564.1] Diagnosis: DIARRHEA[ICD9: 787.91] Laura Bahena MD, [facility] CPT-4: 06108 01/14/2014 ([id number]) 19001 EST. PATIENT, LEVEL IV Diagnosis: ESSENTIAL HYPERTENSION[ICD9: 401.9] Diagnosis: ATRIAL FIBRILLATION[ICD9: 427.31] Diagnosis: URGE INCONTINENCE[ICD9: 788.31] Diagnosis: MALAISE AND FATIGUE[ICD9: 780.79] Diagnosis: Dyspnea[ICD9: 786.09] Karma Bahena MD [facility] CPT-4: 84444 12/25/2013 ([id number]) 86441 EST. PATIENT, LEVEL IV Diagnosis: ESSENTIAL HYPERTENSION[SNOMED: 18791242] Diagnosis: ATRIAL FIBRILLATION[ICD9: 427.31] Diagnosis: Abdominal pain[ICD9: 789.00] Diagnosis: ESOPHAGEAL REFLUX[ICD9: 530.81] Karma Bahena MD [facility] CPT-4: 76810 11/27/2013 ([id number]) 56345 EST. PATIENT, LEVEL IV Diagnosis: ESSENTIAL HYPERTENSION[SNOMED: 02850840] Diagnosis: ATRIAL FIBRILLATION[ICD9: 427.31] Diagnosis: Chronic osteoarthritis[ICD9: 715.90] Karma Bahena MD [facility] CPT- 4: 15048 09/12/2013 ([id number]) 54310 EST. PATIENT, LEVEL III Diagnosis: ESSENTIAL HYPERTENSION[SNOMED: 63933569] Diagnosis: Bruising[ICD9: 924.9] Diagnosis: ENCNTR LONG-RX USE NEC[ICD9: V58.69] Karma Bahena MD [facility] CPT- 4: 89417 08/15/2013 ([id number]) 22827 EST. PATIENT, LEVEL IV Diagnosis: ESSENTIAL HYPERTENSION[SNOMED: 45847376] Diagnosis: Hematuria[ICD9: 599.70] Diagnosis: Dysuria[ICD9: 788.1] Karma Bahena MD [facility] CPT-4: 19789 08/01/2013 ([id number]) 97730 EST. PATIENT, LEVEL III Diagnosis: UTI[ICD9: 599.0] Diagnosis: Hematuria[ICD9: 599.70] Laura Bahena MD [facility] CPT-4: 06121 07/01/2013 ([id number]) 45144 EST. PATIENT, LEVEL III Diagnosis: ATRIAL FIBRILLATION[ICD9: 427.31] Diagnosis: ESSENTIAL HYPERTENSION[SNOMED: 53377508] Karma Bahena MD [facility] CPT-4: 08777 05/29/2013 ([id number]) 95152 EST. PATIENT, LEVEL IV Diagnosis: Atrial fibrillation[ICD9: 427.31] Diagnosis: Encounter for monitoring digoxin therapy[ICD9: V58.83] Diagnosis: ESSENTIAL HYPERTENSION[SNOMED: 11097569] Karma Bahena MD, [facility] CPT-4: 50312 05/15/2013 ([id number]) 32659 EST. PATIENT, LEVEL IV Diagnosis: ESSENTIAL HYPERTENSION[SNOMED: 96288490] Diagnosis: ATRIAL FIBRILLATION[ICD9: 427.31] Diagnosis: PALPITATIONS[ICD9: 785.1] Diagnosis: Dizziness and giddiness[ICD9: 780.4] Karma Bahena MD [facility] CPT- 4: 34136 04/23/2013 ([id number]) 23323 EST. PATIENT, LEVEL III Diagnosis: OTHER CONSTIPATION[ICD9: 564.09] Diagnosis: ABDOM PAIN NOS SITE[ICD9: 789.00] Laura Bahena MD, [facility] CPT- 4: 43209 03/21/2013 ([id number]) 48617 EST. PATIENT, LEVEL IV Diagnosis: ESSENTIAL HYPERTENSION[SNOMED: 24672292] Diagnosis: Atrial fibrillation[ICD9: 427.31] Karma Bahena MD, [facility] CPT- 4: 29083 01/16/2013 ([id number]) Miscellaneous no charge Diagnosis: CELLULITIS OF HAND[ICD9: 682.4] Karma Bahena MD [facility] CPT-4: 69777 12/19/2012 ([id number]) Miscellaneous no charge Diagnosis: ENCOUNTER FOR THERAPEUTIC DRUG MONITORING[ICD9: V58.83] Diagnosis: CELLULITIS OF HAND[ICD9: 682.4] Karma Bahena MD [facility] CPT-4: 95013 12/14/2012 Miscellaneous no charge Diagnosis: CELLULITIS OF HAND[ICD9: 682.4] Kamra Bahena MD, [facility] CPT-4: 62226 12/12/2012 95848 EST. PATIENT, LEVEL II Diagnosis: CELLULITIS OF HAND[ICD9: 682.4] Diagnosis: ENCNTR LONG-RX USE NEC[ICD9: V58.69] Diagnosis: LONG-TERM USE ANTICOAGUL[ICD9: V58.61] Karma Bahena MD, [facility] CPT-4: 59641 12/11/2012 [id number]) 40139 EST. PATIENT, LEVEL III Diagnosis: CELLULITIS OF HAND[ICD9: 682.4] [facility] CPT-4: 60723 12/10/2012 ([id number]) 87746 EST. PATIENT, LEVEL IV Diagnosis: Elevated digoxin level[ICD9: 796.0] Diagnosis: ATRIAL FIBRILLATION[ICD9: 427.31] Diagnosis: Inflammatory arthritis[ICD9: 714.9] PARVEEN Freitas MD CPT- 4: 54703 10/30/2012 ([id number]) 20412 EST. PATIENT, LEVEL IV Diagnosis: Atrial fibrillation[ICD9: 427.31] Diagnosis: Anticoagulant long-term use[ICD9: V58.61] Diagnosis: ESSENTIAL HYPERTENSION[SNOMED: 04782319] [facility] CPT-4: 79334 08/08/2012 ([id number]) 45908 EST. PATIENT, LEVEL IV Diagnosis: ABDOM PAIN NOS SITE[ICD9: 789.00] Diagnosis: Constipation - functional[ICD9: 564.09] Diagnosis: EDEMA[ICD9: 782.3] Diagnosis: ATRIAL FIBRILLATION[ICD9: 427.31] [facility] CPT- 4: 85817 07/11/2012 ([id number]) 80606 EST. PATIENT, LEVEL III Diagnosis: Cystocele[ICD9: 618.01] Diagnosis: Rectocele[ICD9: 618.04] [facility] CPT-4: 81737 05/08/2012 ([id number]) 08902 EST. 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 PATIENT, LEVEL IV Diagnosis: ATRIAL FIBRILLATION[ICD9: 427.31] Diagnosis: URGE INCONTINENCE[ICD9: 788.31] Diagnosis: MALAISE AND FATIGUE[ICD9: 780.79] Diagnosis: Dyspnea[ICD9: 786.09] Karma Bahena MD [facility] CPT-4: 75859 02/20/2012 63788 EST. PATIENT, LEVEL IV Diagnosis: Hematuria[ICD9: 599.70] Diagnosis: Vaginal yeast infection[ICD9: 112.1] Diagnosis: ATRIAL FIBRILLATION[ICD9: 427.31] Laura Bahena MD [facility] CPT- 4: 72895 02/13/2012 ([id number]) 00895 EST. PATIENT, LEVEL IV Diagnosis: Atrial fibrillation[ICD9: 427.31] Diagnosis: Anticoagulation goal of INR 2 to 3[ICD9: V58.83] Diagnosis: Urinary incontinence, urge[ICD9: 788.31] Diagnosis: ESSENTIAL HYPERTENSION[SNOMED: 44791670] Karma Bahena MD [facility] CPT-4: 44000 02/01/2012 ([id number]) 24256 EST. PATIENT, LEVEL IV Diagnosis: Atrial fibrillation[ICD9: 427.31] Diagnosis: Anticoagulant long-term use[ICD9: V58.61] Diagnosis: ESSENTIAL HYPERTENSION[SNOMED: 61201375] Karma Bahena MD [facility] CPT-4: 22424 2012 61142 EST. PATIENT, LEVEL IV Diagnosis: UTI[ICD9: 599.0] Diagnosis: ESSENTIAL HYPERTENSION[SNOMED: 43158368] Diagnosis: MALAISE AND FATIGUE[ICD9: 780.79] Diagnosis: Esophageal reflux[ICD9: 530.81] Karma Bahena MD [facility] CPT-4: 77485 12/01/2011 ([id number]) 97373 EST. PATIENT, LEVEL IV Diagnosis: UTI (urinary tract infection)[ICD9: 599.0] Diagnosis: ESSENTIAL HYPERTENSION[SNOMED: 78488108] Diagnosis: URGE INCONTINENCE[ICD9: 788.31] Karma Bahena MD, [facility] CPT-4: 68254 11/23/2011 ([id number]) 22901 EST. PATIENT, LEVEL IV Diagnosis: ESSENTIAL HYPERTENSION[SNOMED: 21445833] Diagnosis: IMPACTED CERUMEN[ICD9: 380.4] Diagnosis: MALAISE AND FATIGUE[ICD9: 780.79] Diagnosis: EDEMA[ICD9: 782.3] Karma Bahena MD [facility] CPT-4: 04169 10/03/2011 10365 EST. PATIENT, LEVEL IV Diagnosis: ESSENTIAL HYPERTENSION[SNOMED: 13032208] Diagnosis: Generalized osteoarthritis[ICD9: 715.09] Diagnosis: OSTEOPOROSIS[ICD9: 733.00] Karma Bahena MD [facility] CPT-4: 48313 08/08/2011 92345 EST. PATIENT, LEVEL IV Diagnosis: Muscle cramp[ICD9: 729.82] Diagnosis: Torticollis[ICD9: 723.5] Diagnosis: Rash[ICD9: 782.1] Karma Bahena MD, [facility] CPT-4: 92364 05/09/2011 58642 EST. PATIENT, LEVEL IV Diagnosis: Leg cramps, sleep related[ICD9: 327.52] Diagnosis: Underweight[ICD9: 783.22] Karma Bahena MD, [facility] CPT-4: 98071 03/29/2011 98216 EST. PATIENT, LEVEL IV Diagnosis: UTI[ICD9: 599.0] Diagnosis: Urge incontinence[ICD9: 788.31] Diagnosis: Loss of weight[ICD9: 783.21] Diagnosis: Palpitations[ICD9: 785.1] Diagnosis: Peripheral neuropathy, idiopathic[ICD9: 356.9] Karma Bahena MD, [facility] CPT-4: 60932 03/15/2011 Plan of Care Planned Activity Notes [...] if the symptoms are not improving. 06/04/2018 Patient Education: Patient Medication Summary Completed 06/04/2018 Appointment: Karma Bahena WPtel: [facility]5 [facility] (15 min) Moderate 03/14/2018 Visit Plan: Hypertension [...] q 3 months or q 6 m [facility] based on previous levels of control. 01/31/2018 Appointment: Katharine Dai WPtel: [address] [place], [place] [phone] [facility] - Annual Wellness Visit 01/31/2018 Patient [...] allergy spray. 12/14/2017 Appointment: Karma Bahena WPtel: [address] [place], [place] [id number] (15 min) Moderate 12/14/2017 Patient Education: [...] allergy spray. 12/07/2017 Appointment: Katharine Dai WPtel: [facility]8 [facility] (15 min) Moderate 12/07/2017 Patient Education: [...] of control. 11/14/2017 Appointment: [phone] (15 min) Moderate 11/14/2017 Patient [...] today. 03/27/2017 Appointment: [phone] (15 min) Moderate 03/27/2017 Patient [...] care surrogate. 01/23/2017 Appointment: Katharine Dai WPtel: [id number] [facility] - Annual Wellness Visit 01/23/2017 Patient [...] becoming uncontrolled. 01/19/2017 Appointment: Karma Bahena WPtel: [facility]8 [facility] (15 min) Moderate 01/19/2017 Patient Education: Patient Medication Summary Completed 01/19/2017 Care Plan: Referral Order SNOMED-CT : [id number] Pending 01/19/2017 Appointment: Karma Bahena WPtel: [facility] (15 min) Moderate 01/04/2017 Appointment: Karma Bahena WPtel: [facility] (15 min) Moderate 12/28/2016 Visit Plan: [id number] zpack-call if symptoms do not resolve or if any worse. Patient verbalized understanding of plan. 11/29/2016 Appointment: Laura Colin WPtel: [phone] [phone] (15 min) Moderate 11/29/2016 Patient Education: [...] pharmacy. 11/23/2016 Appointment: Katharine Dai WPtel: [phone] [facility] (15 min) Moderate 11/23/2016 Patient Education: Patient Medication Summary Completed 11/23/2016 Visit Plan: Pharyngitis-Discussed natural and expected course of this diagnosis and need to alert me if symptoms do not follow expected course, or if any worse. Recommended salt water gargles as needed for pain. Ty lenol/motrin as needed for fever/discomfort. 11/21/2016 Appointment: Laura Colin WPtel: [phone] [phone] (15 min) Moderate 11/21/2016 Patient [...] symptoms. 11/08/2016 [id number] (10 min) Simple 11/08/2016 Patient Education: Patient [...] etc. 11/02/2016 Appointment: Karma Bahena WPtel: [phone] [id number] (15 min) Moderate 11/02/2016 Appointment: Nurse Visit 11/02/2016 Patient Education: Patient Medication Summary Completed 11/02/2016 Appointment: Nurse Visit 10/31/2016 Visit Plan: Laceration-right forearm- Pt was instructed to keep the wound clean, cleanse with sterile saline, use bactroban ointment, call if redness, pustular drainage, or any other acute concerns. Follow up Monday for dressing changes. 10/27/2016 Appointment: Laura Colin WPtel: [phone] [facility] [id number] [place] (30 min) Complex 10/27/2016 Patient Education: [...] symptoms. 08/31/2016 Appointment: Kar[facility] Ba[phone] (15 min) Moderate 08/31/2016 Patient Education: Patient [...] your swelling. 07/27/2016 Appointment: Karma Bahena WPtel: [address] [place], [place] [id number] (15 min) Moderate 07/27/2016 Patient Education: Patient [...] of lasix 06/23/2016 Appointment: Karma Bahena WPtel: [address] [place], [place] [phone] (15 min) Moderate 06/23/2016 Patient Education: Patient Medication Summary Completed 06/23/2016 Patient Education: Hypertension Completed 06/23/2016 Visit Plan: Edema - with Dyspnea - RX for laxis and compression socks - pt to call if not improving. 06/09/2016 Appointment: Karma Bahena WPtel: [facility]0 [facility] [place] (15 min) Moderate 06/09/2016 Patient Education: Patient Medication Summary Completed 06/09/2016 Visit Plan: Abdominal pain and rectal itching - recommended pt to use betamethasone on vaginal/rectal region, monitor symptoms call if not improving. Continue with beano and simethicone 05/25/2016 Appointment: Karma Bahena WPtel[phone] [facility] (15 min) Moderate 05/25/2016 Patient Education: Patient Medication Summary Completed 05/25/2016 Care Plan: [facility] [id number] Pending 05/20/2016 Visit Plan: Abdominal distension - use simethicone four times daily - after meals - if it does not help - in the next two weeks - call the office and we will do a ct scan of the abdomen and pelvis 05/17/2016 Appointment: Karma Bahena WPtel[phone] [facility] (15 min) Moderate 05/17/2016 Patient [...] ointment 03/24/2016 Appointment: Karma Bahena WPtel: [phone] (30 min) Complex 03/24/2016 Patient [...] spray. 12/21/2015 Appointment: Laura Colin WPtel: [phone] [phone] (30 min) Complex 12/21/2015 Patient [...] uncontrolled. 11/03/2015 Appointment: Karma Bahena WPtel: [phone] [facility] (15 min) Moderate 11/03/2015 Patient Education: Patient [...] Completed 09/01/2015 Appointment: Karma Bahena WPtel: [phone] (15 min) Moderate 07/13/2015 Visit [...] 05/13/2015 Care Plan: Referral Order SNOMED-CT : [id number] Ordered 05/08/2015 Visit Plan: Atrial Fibrillation - [...] Collins. 05/07/2015 Appointment: Karma Bahena WPtel: [phone] [facility] (15 min) Moderate 05/07/2015 Patient Education: Patient [...] uncontrolled. 10/30/2014 Appointment: Karma Bahena WPtel: [phone] Follow up 10/30/2014 Patient Education: Patient Medication Summary Completed 10/30/2014 Appointment: Karma Bahena WPtel: [facility] Follow up 07/22/2014 Visit Plan: Atrial Fibrillation [...] in hospital. 07/11/2014 Appointment: Karma Bahena WPtel: [address] [place], [place] [phone] Sick 07/11/2014 Patient Education: Patient Medication Summary Completed 07/11/2014 Appointment: Karma Bahena WPtel: [address] [place], [place] [phone] Follow up 07/07/2014 Visit Plan: Urinary incontinence [...] times weekly. 05/20/2014 Appointment: Karma Bahena WPtel: [address] [place], [place] [phone] Follow up 05/20/2014 Patient Education: Patient Medication Summary Completed 05/20/2014 Appointment: Karma Bahena WPtel: [address] [place], [place] [phone] Lab Draw 05/14/2014 Patient Education: Patient Medication [...] vesicare. 04/29/2014 Appointment: Karma Bahena WPtel: [phone] [facility] Follow up 04/29/2014 Patient Education: Patient Medication [...] allergy spray. 03/20/2014 Appointment: Karma Bahena WPtel: [facility]5 [facility] Sick 03/20/2014 Patient Education: Patient Medication [...] uncontrolled. 03/05/2014 Appointment: Karma Bahena WPtel: [phone] [facility] Follow up 03/05/2014 Patient Education: Patient [...] with report. 01/29/2014 Appointment: Karma Bahena WPtel: [facility]5 [facility] Follow up 01/29/2014 Patient Education: Patient [...] exposure,and dyspnea on exertion - will ask [place] Patient do an overnight oxygen study on [place] as she has cardiac history, weight loss, and nocturnal hypoxemia may be a part of her weight loss and fatigue. 12/25/2013 Appointment: Karma Bahena WPtel: [phone] Follow up 12/25/2013 Patient Education: Patient Medication [...] daily. 11/27/2013 Appointment: Karma Bahena WPtel: [phone] [facility] Follow up 11/27/2013 Patient Education: [...] blood pressure readings at home. 09/12/2013 Appointment: Josef Karma WPtel: [address] [place], [place] [phone] Follow up 09/12/2013 Patient Education: Patient Medication Summary Completed 09/12/2013 Patient Education: Hypertension Completed 09/12/2013 Appointment: Karma Bahena WPtel: [address] [place] [address] Follow up 08/21/2013 Visit Plan: Hypertension - [...] coumadin-check PT/INR 08/15/2013 Appointment: Karma Bahena WPtel: [address] [place] [address] Follow up 08/15/2013 Patient Education: Patient Medication [...] of urethra. 08/01/2013 Appointment: Karma Bahena WPtel: [address] [place], [place] [phone] [place] Follow up 08/01/2013 Patient Education: Patient Medication Summary Completed 08/01/2013 Patient Education: Hypertension Completed 08/01/2013 Appointment: Laura Colin WPtel: [address] [place], [place] [phone] [place] Lab Draw 07/29/2013 Patient Education: Patient Medication Summary Completed 07/29/2013 Visit Plan: Osteoporosis-prolia on june 25-patient to let Dr Hansen know 07/01/2013 Appointment: Laura Colin WPtel: [facility]5 [phone] [place] Follow up 07/01/2013 Appointment: Karma Bahena WPtel: [address] [place], [place] [phone] [place] Follow up 07/01/2013 Patient Education: Patient Medication Summary Completed 07/01/2013 Appointment: Karma Bahena WPtel: [address] [place], [place] [phone] [place] Follow up 06/25/2013 Appointment: Karma Bahena WPtel: [address] [place], [place] [id number] [place] Lab Draw 06/20/2013 Patient Education: Patient Medication Summary Completed 06/20/2013 Appointment: Karma Bahena WPtel: [address] [place], [place] [id number] [place] Lab Draw 06/19/2013 Visit Plan: Atrial [...] home. 05/29/2013 Appointment: Karma Bahena WPtel: [phone] [facility] Follow up 05/29/2013 Patient Education: Patient [...] at home. 05/15/2013 Appointment: Karma Bahena WPtel: [phone] [facility] Other 05/15/2013 Patient Education: Patient Medication [...] shot today. 04/23/2013 Appointment: Karma Bahena WPtel: [phone] [facility] Other 04/23/2013 Patient Education: Patient Medication [...] this regimen. 03/21/2013 Appointment: Laura Colin WPtel: [facility]5 [phone] Follow up 03/21/2013 Patient Education: [...] uncontrolled. 01/16/2013 Appointment: Karma Bahena WPtel: [address] [place], [place] [phone] Follow up 01/16/2013 Patient Education: Patient Medication Summary Completed 01/16/2013 Patient Education: Hypertension Completed 01/16/2013 Visit Plan: Wound Instructions - Pt was instruced to keep the wound clean, wash with antibacterial soap, use triple antibiotic ointment, call if redness, pustular drainage, or any other acute conerns. 12/19/2012 Appointment: Karma Bahena WPtel: [address] [place], [place] [phone] Other 12/19/2012 Patient Education: Patient Medication Summary Completed 12/19/2012 Patient Education: Patient Medication Summary Completed 12/17/2012 Visit Plan: Cellulitis - improved- monitor symptoms - need to check handon Monday morning. 12/14/2012 Appointment: Karma Bahena WPtel: [facility]5 [facility] Follow up 12/14/2012 Patient Education: Patient Medication Summary Completed 12/14/2012 Visit Plan: Cellulitis - improved- monitor symptoms - need to check handon Monday morning. 12/12/2012 Appointment: Karma Bahena WPtel: [facility]5 [facility] Work-in 12/12/2012 Patient Education: Patient Medication [...] warmth, discharge. 12/10/2012 Appointment: Karma Bahena WPtel: [facility]5 [facility] Other 12/10/2012 Patient Education: Patient Medication [...] becoming uncontrolled. 10/30/2012 Appointment: Karma Bahena WPtel: [facility]9 [facility] Follow up 10/30/2012 Patient Education: Patient Medication Summary Completed 10/30/2012 Appointment: Laura Colin WPtel: [facility]0 [phone] Lab Draw 09/13/2012 Patient Education: [...] 3.5. 08/08/2012 Appointment: Karma Bahena WPtel: [phone] [facility] Other 08/08/2012 Patient Education: Patient [...] this regimen. 07/11/2012 Appointment: Karma Bahena WPtel: [facility] swelling, leg edema Other 07/11/2012 [...] vaginally. 05/08/2012 Appointment: Karma Bahena WPtel: [phone] [facility] Follow up 05/08/2012 Patient Education: [...] during hospitalization. 04/18/2012 Appointment: Karma Bahena WPtel: [facility] Follow up 04/18/2012 Patient Education: Patient Medication Summary Completed 04/18/2012 Patient Education: High Blood Pressure: Essential Hypertension Completed 04/18/2012 Appointment: Karma Bahena WPtel: [phone] [place] Follow up 04/09/2012 Appointment: Karma Bahena WPtel: [phone] [facility] [place] Lab Draw 04/04/2012 Appointment: Laura Colin WPtel: [facility]5 [phone] [place] Lab Draw 03/19/2012 Visit Plan: Abdominal [...] Hypertension Completed 03/13/2012 Appointment: Karma Bahena WPtel: [phone] [facility] Lab Draw 03/08/2012 Patient Education: Patient Medication [...] cardiac rehab. 02/20/2012 Appointment: Karma Bahena WPtel: [phone] [facility] Other 02/20/2012 Patient Education: Patient Medication Summary [...] uncontrolled. 02/13/2012 Appointment: Laura Colin WPtel: [phone] [phone] Other 02/13/2012 Patient Education: Patient Medication Summary Completed 02/13/2012 Appointment: Karma Bahena WPtel: [phone] [facility] [place] Lab Draw 02/07/2012 Visit [...] the medication. 02/01/2012 Appointment: Karma Bahena WPtel: [facility]5 [facility] [place] Other 02/01/2012 Patient Education: Patient Medication Summary Completed 02/01/2012 Patient Education: High Blood Pressure: Essential Hypertension Completed 02/01/2012 Appointment: Karma Bahena WPtel: [phone] [facility] [place] Lab Draw 01/17/2012 Visit Plan: Atrial Fibrillation - pt on chronic anticoagulation and is currently rate controlled. The pt is to have labs done as appropriate to monitor medication levels and is to report if they start to feel as if their heart rate is becoming uncontrolled. DIGOXIN LEVEL FOR 7-10-12 and then on 02/07/12, then blood work [...] home. 2012 Appointment: Karma Bahena WPtel: [phone] [facility] Other 2012 Patient Education: Patient Medication Summary Completed 2012 Patient Education: High Blood Pressure: Essential Hypertension Completed 2012 Appointment: Karma Bahena WPtel: [facility]2 [place] [phone] Follow up 12/20/2011 Visit Plan: Dicyclomine up [...] emergency room. 12/01/2011 Appointment: Karma Bahena WPtel: [phone] [facility]6676[facility] Other 12/01/2011 Patient Education: Patient Medication Summary [...] infection resolves. 11/23/2011 Appointment: Laura Colin WPtel: [address] [place] [address] Other 11/23/2011 Patient Education: Patient Medication Summary Completed 11/23/2011 Patient Education: High Blood Pressure: Essential Hypertension Completed 11/23/2011 Visit Plan: Cerumen Impaction - The impacted cerumen was removed with the use of either ear currette alone or in combination with ear curette and water pick. The patient tolerated the procedure without incident and had improvement in hearing 10/17/2011 Appointment: Laura Colin WPtel: [address] [place] [address] [place] [address] Other 10/17/2011 Patient Education: Patient Medication Summary [...] by irrigation. 10/03/2011 Appointment: Karma Bahena WPtel: [facility]2 [place] [address] [place] Other 10/03/2011 Patient Education: Patient Medication [...] is evidence. 08/08/2011 Appointment: Karma Bahena WPtel: [facility] Other 08/08/2011 Patient Education: Patient Medication Summary Completed 08/08/2011 Patient Education: High Blood Pressure: Essential Hypertension Completed 08/08/2011 Visit Plan: Muscle cramps - the cramps are a little better, continue with the Diltiazem and it is okay to use the over the counter supplement with quinine - but use it sparingly. For the rash, use the prescripti on the warehouse laborer prescribed for the itching , call if the rash is not improved. Torticollis - continue with physical therapy, call if the neck muscles do not continue to show improvement. 05/09/2011 Appointment: Karma Bahena WPtel: [facility]2 [facility]6676[facility] Other 05/09/2011 Patient Education: Patient Medication Summary [...] water aerobics. 03/29/2011 Appointment: Karma Bahena WPtel: [facility]5 [place] [address] [place] Other 03/29/2011 Patient Education: Patient Medication Summary Completed 03/29/2011 Appointment: Karma Bahena WPtel: [phone] [facility] Other 03/17/2011 Visit Plan: UTI - UA negative. Urge incontinence- restart on the vesicare- at 5 mg. Continue to avoid caffinated foods/fluids. Peripheral Neuropathy - per edge cutter report - Continue with the metanex. Loss of weight - WEIGHT CHECK IN 2 WKS. Palpitations- likely stress induced. If the symptoms worsen, call the office. 03/15/2011 Appointment: Karma Bahena WPtel: [facility] Follow up 03/15/2011 Patient Education: Patient [...] avoid caffinated foods/fluids. Peripheral Neuropathy - per edge cutter report - Continue with the metanex. Loss [...] therefore, would not change the medication. . [id number] zpack-call if symptoms do not resolve or [...] For the rash, use the prescription the warehouse laborer prescribed for the itching , call if [...] at home. Ynes- recommended cardiac rehab. . Allergies - chronic - recommended pt [...] exposure,and dyspnea on exertion - will ask [place] Patient do an overnight oxygen study [...] - no change in symptoms. . Wound care - continue with dressing [...] be sent to cardiology. Flu shot today. rita hen hearing aide drying beads - [...] based on previous levels of control. . Cellulitis - improved- monitor symptoms - need to check handon Monday morning. seborrheic Keratosis on left breast . Abdominal [...]
--- OUTSIDE RECORDS SUMMARY | 2018-12-10 21:37 | XMS REPORT | CCD ---
Author Author Laura Colin Organization Karma Bahena MD, [facility] Address [address] [place] [address] Phone Care Team Providers Care Director Of Marketing [employer] Name Role Phone Karma Bahena PP Unavailable CCM Unavailable Summary Purpose Interface Exchange Insurance Providers Payer name Policy type / Coverage type Covered alliance party ID Effective Begin Date Effective End Date WPS Medicare Part B Medicare Part B [id number] 2018 Unknown AARP Medicare Part B [id number] 2018 Unknown Family history Sister Diagnosis Age [...] Unknown House 03/15/[address]: 295191814 Never smoker 03/15/2011 Has the patient ever used illegal drugs? Unknown Has never used illegal drugs 03/15/2011 Allergies, Adverse Reactions, Alerts Substance Reaction Codes Entered Date Inactivated Date Status BACTINE RxNorm: 798536 03/04/2011 No Inactive Date Active MICONAZOLE RxNorm: 6932 03/04/2011 No Inactive Date Active NEOSPORIN RxNorm: 562219 03/04/2011 No Inactive Date Active NEOMYCIN RxNorm: 7299 03/04/2011 No Inactive Date Active CORTISPORIN RxNorm: 40445 03/04/2011 No Inactive Date Active bactrim RxNorm: 376228 03/13/2012 No Inactive Date Active AUGMENTIN diarrhea RxNorm: 451583 2016 No Inactive Date Active METRONIDAZOLE Unknown 03/04/2011 No Inactive Date Active NYSTATIN Unknown 03/04/2011 No Inactive Date Active PNEUMOCOCCAL VACCINE Unknown 03/04/2011 No Inactive Date Active Past Medical History Illness Codes Condition Status Onset Date Resolved Date Atrophy of thyroid (acquired) ICD-9: 244.8 ICD-10: E03.4 Active 11/02/2016 Unknown Essential (primary) hypertension ICD-9: 401.9 ICD-10: I10 Active 12/25/2013 Unknown Other long term care administrator (current) drug therapy ICD-9: V58.83 ICD-10: Z79.899 [...] ICD-9: 477.8 ICD-10: J30.89 Active 10/12/2015 Unknown Essential (primary) hypertension ICD-9: 401.1 ICD-10: I10 Active 01/19/2017 Unknown Age-related osteoporosis without current pathological fracture [...] ICD-9: 401.9 ICD-10: I10 12/25/2013 Active Other half-way (current) drug therapy ICD-9: V58.83 ICD-10: Z79.899 01/31/2018 Active Encounter for general adult medical examination with abnormal findings ICD-9: V70.0 ICD-10: Z00.01 01/23/2017 Active Allergic rhinitis due to pollen ICD-9: 477.0 ICD-10: J30.1 12/20/2015 Active Chronic atrial fibrillation ICD-9: 427.31 ICD-10: I48.2 12/25/2013 Active Cough ICD-9: 786.2 ICD-10: R05 11/23/2016 Active Other allergic rhinitis ICD-9: 477.8 ICD-10: J30.89 10/12/2015 Active Essential (primary) hypertension ICD-9: 401.1 ICD-10: I10 01/19/2017 Active Age-related osteoporosis without current pathological fracture [...] Start Date Stop Date Status Fill Instructions Vesicare 10 mg tablet RxNorm: 602026 1 TABLET(S) PO EVERY OTHER DAY 05/14/2018 01/08/2019 Active levothyroxine 50 mcg tablet RxNorm: 513675 1 TABLET(S) PO DAILY 04/30/2018 07/28/2018 Active Patient requests 90 days supply spironolactone 25 mg tablet RxNorm: 979280 1 Tablet(s) PO daily 03/14/2018 03/08/2019 Active levothyroxine 50 mcg tablet RxNorm: 338914 1 Tablet(s) PO daily 02/01/2018 04/29/2018 Inactive Eliquis 2.5 mg tablet RxNorm: 6603550 1 Tablet(s) PO BID 01/31/2018 02/20/2018 Inactive levothyroxine 50 mcg tablet RxNorm: 508564 1 Tablet(s) PO daily 01/31/2018 01/31/2018 Inactive Eliquis 2.5 mg tablet RxNorm: 8568023 TAKE 1 TABLET BY MOUTH TWICE DAILY 01/23/2018 07/21/2018 Active metoprolol succinate ER 50 mg tablet,extended release 24 hr RxNorm: 203409 1 TABLET(S) PO DAILY 01/23/2018 01/30/2018 Inactive metoprolol succinate ER 50 mg tablet,extended release 24 hr RxNorm: 974412 1.5 Tablet(s) daily 01/22/2018 10/18/2018 Active lisinopril 20 mg tablet RxNorm: 763772 1/2 Tablet(s) daily 01/19/2018 01/21/2018 Inactive Patient requests 90 days supply Singulair 10 mg tablet RxNorm: 357543 TAKE 1 TABLET BY MOUTH AT BEDTIME 01/18/2018 04/17/2018 Inactive Patient requests 90 days supply Singulair 10 mg tablet RxNorm: 095949 Tablet(s) PO 01/17/2018 01/17/2018 Inactive digoxin 125 mcg tablet RxNorm: 356221 1 TABLET(S) PO DAILY 01/03/2018 12/28/2018 Active Symbicort 160 mcg-4.5 mcg/actuation HFA aerosol inhaler RxNorm: 1616031 2 Puff(s) INH BID 12/14/2017 04/12/2018 Inactive please dispense an aerochamber for patient as well as her symbicort cyclobenzaprine 5 mg tablet RxNorm: 663314 Tablet(s) 1/2 TABLET(S) PO Q8 NEEDED MUSCLE SPASMS 12/14/2017 No Stop Date Active pantoprazole 40 mg tablet,delayed release RxNorm: 273278 1 Tablet(s) PO daily 12/14/2017 12/08/2018 Active ProAir RespiClick 90 mcg/actuation breath activated RxNorm: 9685260 1-2 INH QID as needed shortness of breath 12/14/2017 07/11/2018 Active cyclobenzaprine 5 mg tablet RxNorm: 783756 1/2 TABLET(S) PO Q8 NEEDED MUSCLE SPASMS 12/08/2017 12/13/2017 Inactive betamethasone dipropionate 0.05 % topical ointment RxNorm: 004497 1 Application TOP TID use topically on the rectal tissue three times daily x 1 week then as needed 11/13/2017 No Stop Date Active Premarin 0.625 mg/gram vaginal cream RxNorm: 841489 1/2 GRAM(S) VAG TIW 11/13/2017 12/12/2017 Inactive cyclobenzaprine 5 mg tablet RxNorm: 202342 1/2 TABLET(S) PO Q8 NEEDED MUSCLE SPASMS 10/17/2017 12/07/2017 Inactive Vesicare 10 mg tablet RxNorm: 366675 1 Tablet(s) PO every other day 10/17/2017 04/14/2018 Inactive lisinopril 20 mg tablet RxNorm: 102588 1 TABLET(S) PO DAILY 10/02/2017 01/18/2018 Inactive Patient requests 90 days supply levothyroxine 75 mcg tablet RxNorm: 652380 1 TABLET(S) PO DAILY 09/25/2017 01/30/2018 Inactive spironolactone 25 mg tablet RxNorm: 240240 1 TABLET(S) PO DAILY 08/16/2017 03/13/2018 Inactive cyclobenzaprine 5 mg tablet RxNorm: 011370 1/2 TABLET(S) PO Q8 NEEDED MUSCLE SPASMS 08/16/2017 10/16/2017 Inactive Eliquis 2.5 mg tablet RxNorm: 1893635 TAKE 1 TABLET BY MOUTH TWICE DAILY 07/26/2017 01/21/2018 Inactive cyclobenzaprine 5 mg tablet RxNorm: 575576 1/2 Tablet(s) PO Q8 as needed muscle spasms 06/19/2017 08/15/2017 Inactive lisinopril 20 mg tablet RxNorm: 847717 1 TABLET(S) PO DAILY 06/12/2017 10/01/2017 Inactive metoprolol succinate ER 50 mg tablet,extended release 24 hr RxNorm: 186276 1 TABLET(S) PO DAILY 04/07/2017 01/01/2018 Inactive spironolactone 25 mg tablet RxNorm: 114911 1 Tablet(s) PO daily 03/27/2017 03/13/2018 Inactive acyclovir 800 mg tablet RxNorm: 769383 1 Tablet(s) PO TID 03/21/2017 03/30/2017 Inactive acyclovir 800 mg tablet RxNorm: 247242 1 Tablet(s) PO TID 03/21/2017 03/20/2017 Inactive levothyroxine 75 mcg tablet RxNorm: 007757 1 Tablet(s) PO daily 03/16/2017 09/11/2017 Inactive spironolactone 25 mg tablet RxNorm: 352385 1 TABLET(S) PO DAILY 02/09/2017 03/26/2017 Inactive lisinopril 20 mg tablet RxNorm: 106400 1 TABLET(S) PO DAILY 01/02/2017 05/31/2017 Inactive Zithromax Z-Claudio 250 mg tablet RxNorm: 858172 1 Tablet(s) PO UD 11/29/2016 12/03/2016 Inactive ZPACK Keflex 500 mg capsule RxNorm: 393210 1 Capsule(s) PO TID 11/23/2016 12/02/2016 Inactive guaifenesin 400 mg tablet RxNorm: 362763 1 Tablet(s) PO Q6 as needed 11/23/2016 11/27/2016 Inactive omeprazole 40 mg capsule,delayed release RxNorm: 351380 1 Capsule(s) PO QPM 11/02/2016 12/13/2017 Inactive digoxin 125 mcg tablet RxNorm: 269435 1 TABLET(S) PO DAILY 10/27/2016 07/23/2017 Inactive cyclobenzaprine 5 mg tablet RxNorm: 881958 1/2 Tablet(s) PO Q8 PRN 10/25/2016 06/18/2017 Inactive prn muscle spasms Augmentin 500 mg-125 mg tablet RxNorm: 879355 1 Tablet(s) PO BID 10/24/2016 11/02/2016 Inactive Lasix 20 mg tablet RxNorm: 811180 Tablet(s) PRN one to two times a week if needed 07/27/2016 No Stop Date Active Patient requests 90 days supply spironolactone 25 mg tablet RxNorm: 201169 1 Tablet(s) PO daily 07/27/2016 02/08/2017 Inactive Diflucan 150 mg tablet RxNorm: 524231 1 Tablet(s) PO daily 07/27/2016 08/02/2016 Inactive lisinopril 20 mg tablet RxNorm: 220425 1 Tablet(s) PO daily 07/12/2016 01/01/2017 Inactive Lasix 20 mg tablet RxNorm: 411070 1 TABLET(S) PO EVERY OTHER DAY EVERY OTHER DAY 06/10/2016 07/26/2016 Inactive Patient requests 90 days supply potassium chloride ER 10 mEq capsule,extended release RxNorm: 030495 1 CAPSULE(S) PO EVERY OTHER DAY 06/10/2016 07/26/2016 Inactive Patient requests 90 days supply potassium chloride ER 10 mEq capsule,extended release RxNorm: 466045 1 Capsule(s) PO every other day 06/09/2016 06/09/2016 Inactive Lasix 20 mg tablet RxNorm: 457525 1 Tablet(s) PO every other day every other day 06/09/2016 06/09/2016 Inactive levothyroxine 88 mcg tablet RxNorm: 120209 1 Tablet(s) PO daily 05/11/2016 11/06/2016 Inactive Premarin 0.625 mg/gram vaginal cream RxNorm: 725470 1/2 Gram(s) VAG TIW 03/24/2016 03/18/2017 Inactive metoprolol succinate ER 50 mg tablet,extended release 24 hr RxNorm: 169259 1 Tablet(s) PO daily 03/24/2016 03/18/2017 Inactive pantoprazole 40 mg tablet,delayed release RxNorm: 717136 1 Tablet(s) PO daily 02/08/2016 11/01/2016 Inactive betamethasone dipropionate 0.05 % topical ointment RxNorm: 751914 1 Application TOP TID use topically on the rectal tissue three times daily x 1 week then as needed 02/02/2016 11/12/2017 Inactive pantoprazole 40 mg tablet,delayed release RxNorm: 231286 1 Tablet(s) PO daily 2016 02/07/2016 Inactive alprazolam 0.25 mg tablet RxNorm: 077158 1 Tablet(s) PO Q6 as needed 12/04/2015 No Stop Date Active Vesicare 10 mg tablet RxNorm: 594304 1 Tablet(s) PO every other day 11/03/2015 10/16/2017 Inactive alprazolam 0.25 mg tablet RxNorm: 272024 1 Tablet(s) PO Q6 as needed 11/03/2015 12/03/2015 Inactive Premarin 0.625 mg/gram vaginal cream RxNorm: 208205 1/2 Gram(s) VAG TIW 11/03/2015 03/23/2016 Inactive levothyroxine 88 mcg tablet RxNorm: 276020 1 Tablet(s) PO daily 11/03/2015 05/10/2016 Inactive Diflucan 150 mg tablet RxNorm: 549219 1 Tablet(s) PO daily 10/19/2015 10/25/2015 Inactive cetirizine 10 mg chewable tablet RxNorm: 7052528 1 Tablet(s) PO daily 10/13/2015 11/11/2015 Inactive cetirizine 10 mg capsule RxNorm: 1222563 1 Capsule(s) PO daily 10/13/2015 11/11/2015 Inactive Vesicare 10 mg tablet RxNorm: 643141 1/2 TABLET(S) PO BID 09/21/2015 11/02/2015 Inactive betamethasone dipropionate 0.05 % topical ointment RxNorm: 314962 1 Application TOP TID use topically on the rectal tissue three times daily x 1 week then as needed 09/15/2015 02/01/2016 Inactive lisinopril 20 mg tablet RxNorm: 127478 1 Tablet(s) PO daily 09/01/2015 07/11/2016 Inactive digoxin 125 mcg tablet RxNorm: 395725 1 Tablet(s) PO daily 09/01/2015 08/25/2016 Inactive Augmentin 500 mg-125 mg tablet RxNorm: 701947 1 Tablet(s) PO TID 05/26/2015 06/04/2015 Inactive Pyridium 200 mg tablet RxNorm: 3041845 1 Tablet(s) PO TID 05/26/2015 05/27/2015 Inactive levothyroxine 88 mcg tablet RxNorm: 638262 1 Tablet(s) PO daily except 1/2 pill on monday and 05/07/2015 11/02/2015 Inactive digoxin 125 mcg tablet RxNorm: 240952 1 Tablet(s) PO daily 05/07/2015 08/31/2015 Inactive lisinopril 20 mg tablet RxNorm: 124256 1 TABLET(S) PO BID 04/13/2015 09/01/2015 Inactive Coumadin 1 mg tablet RxNorm: 720919 1 TABLET(S) PO DAILY 03/31/2015 08/31/2015 Inactive Coumadin 2 mg tablet RxNorm: 460804 4MG IN AM AND 1MG AT NIGHT TABLET(S) PO DAILY DIRECTED. 03/31/2015 08/31/2015 Inactive levothyroxine 88 mcg tablet RxNorm: 516647 1 Tablet(s) PO daily 03/23/2015 05/06/2015 Inactive alprazolam 0.25 mg tablet RxNorm: 956863 Tablet(s) PO 03/23/2015 04/06/2015 Inactive levothyroxine 88 mcg tablet RxNorm: 122399 1 Tablet(s) PO daily 01/28/2015 03/22/2015 Inactive levothyroxine 88 mcg tablet RxNorm: 720014 1 Tablet(s) PO daily 01/28/2015 01/27/2015 Inactive diltiazem ER 120 mg capsule,extended release RxNorm: 295565 1 Capsule(s) PO BID patient would like 4 months at a time 01/06/2015 09/28/2015 Inactive digoxin 125 mcg tablet RxNorm: 143134 Tablet(s) 1 TABLET(S) PO DAILY 12/24/2014 12/23/2014 Inactive pt will be paying [employer]omares (On $4 list)Patient requests 90 days supply digoxin 125 mcg tablet RxNorm: 183263 Tablet(s) 1 TABLET(S) PO DAILY M W F Sat and 2 tabs on T TH 12/24/2014 05/06/2015 Inactive pt will be paying [employer]oma[employer] (On $4 list)Patient requests 90 days supply dicyclomine 20 mg tablet RxNorm: 206935 1 Tablet(s) PO daily 11/17/2014 08/31/2015 Inactive one ac dinner and up to tid prn levothyroxine 88 mcg tablet RxNorm: 192241 1 Tablet(s) PO daily 11/03/2014 01/27/2015 Inactive Premarin 0.625 mg/gram vaginal cream RxNorm: 189449 1 APPLICATION VAG 1 APPLICATOR PER VAGINA 3 TIMES PER WEEK 11/03/2014 07/30/2015 Inactive digoxin 125 mcg tablet RxNorm: 729858 1 TABLET(S) PO DAILY 09/29/2014 12/23/2014 Inactive pt will be paying [employer]oma[employer] (On $4 list)Patient requests 90 days supply digoxin 125 mcg tablet RxNorm: 443054 1 TABLET(S) PO DAILY 07/11/2014 04/06/2015 Inactive Vesicare 10 mg tablet RxNorm: 954841 1/2 Tablet(s) PO BID 05/20/2014 05/14/2015 Inactive Levaquin 500 mg tablet RxNorm: 520171 1 Tablet(s) PO daily 05/06/2014 05/08/2014 Inactive take probiotic BID while on ABT Levaquin 500 mg tablet RxNorm: 834088 1 Tablet(s) PO daily 05/02/2014 05/05/2014 Inactive take probiotic BID while on ABT diltiazem ER 120 mg capsule,extended release RxNorm: 482984 1 Capsule(s) PO BID patient would like 4 months at a time 04/29/2014 2015 Inactive Vesicare 10 mg tablet RxNorm: 627395 1/2 Tablet(s) PO BID 04/29/2014 05/19/2014 Inactive lisinopril 20 mg tablet RxNorm: 476092 1 Tablet(s) PO BID 03/20/2014 03/14/2015 Inactive diltiazem 90 mg tablet RxNorm: 556209 1/2 TABLET(S) PO QPM 03/04/2014 04/28/2014 Inactive also 180 q am diltiazem ER 120 mg capsule,extended release RxNorm: 852700 1 Capsule(s) PO daily patient would like 4 months at a time 01/29/2014 04/28/2014 Inactive Vesicare 10 mg tablet RxNorm: 935281 1 Tablet(s) PO QHS 01/14/2014 04/28/2014 Inactive Coumadin 2 mg tablet RxNorm: 115480 4mg in AM and 1mg at night Tablet(s) PO daily as directed. 12/25/2013 03/30/2015 Inactive Metanx 3 mg-35 mg-2 mg tablet RxNorm: 1 Tablet(s) PO daily 12/25/2013 11/02/2015 Inactive digoxin 125 mcg tablet RxNorm: 906689 1 Tablet(s) PO daily 12/25/2013 09/28/2014 Inactive pt will be paying [employer] (On $4 list) Coumadin 2 mg tablet RxNorm: 228617 7.5 wed 5mg other Tablet(s) PO as directed. 12/03/2013 12/24/2013 Inactive omeprazole 20 mg tablet,delayed release RxNorm: 917837 1 Tablet(s) PO BID 11/27/2013 04/28/2014 Inactive Coumadin 2 mg tablet RxNorm: 627112 5 mg daily Tablet(s) PO as directed. 11/26/2013 12/02/2013 Inactive 5 mg daily Xanax 0.25 mg tablet RxNorm: 506502 1 Tablet(s) PO Q6 PRN 11/11/2013 12/25/2013 Inactive alprazolam 0.25 mg tablet RxNorm: 718027 tablet oral 11/11/2013 03/22/2015 Inactive sucralfate 1 gram tablet RxNorm: 596140 1 Tablet(s) PO AC & HS 11/04/2013 11/03/2013 Inactive sucralfate 1 gram tablet RxNorm: 016324 1 Tablet(s) PO AC & HS 11/04/2013 01/02/2014 Inactive Synthroid 100 mcg tablet RxNorm: 260216 1 Tablet(s) PO daily 10/31/2013 10/25/2014 Inactive Synthroid 100 mcg tablet RxNorm: 187257 1 Tablet(s) PO daily 09/30/2013 10/29/2013 Inactive Vesicare 10 mg tablet RxNorm: 729059 1 Tablet(s) PO QHS 09/30/2013 01/13/2014 Inactive Lotemax 0.5 % eye ointment RxNorm: 6629599 ointment opht 09/06/2013 12/10/2013 Inactive levothyroxine 100 mcg tablet RxNorm: 016081 tablet oral 09/05/2013 11/02/2014 Inactive Synthroid 100 mcg tablet RxNorm: 941132 1 Tablet(s) PO daily 09/05/2013 09/29/2013 Inactive Prolia 60 mg/mL Sub-Q Syringe RxNorm: 082137 1 Milliliter(s) SQ 06/25/2013 11/02/2015 Inactive dicyclomine 20 mg tablet RxNorm: 596249 1 Tablet(s) PO daily 06/24/2013 06/18/2014 Inactive one ac dinner and up to tid prn omeprazole 20 mg tablet,delayed release RxNorm: 996279 1 Tablet(s) PO BID 06/24/2013 11/26/2013 Inactive Cipro 500 mg tablet RxNorm: 816008 1 Tablet(s) PO BID 06/20/2013 06/26/2013 Inactive diltiazem ER 120 mg capsule,extended release RxNorm: 990455 1 Capsule(s) PO daily patient would like 4 months at a time 06/03/2013 01/28/2014 Inactive Coumadin 2 mg tablet RxNorm: 517286 as directed Tablet(s) PO as directed. 05/29/2013 11/25/2013 Inactive 5 mg daily Synthroid 88 mcg tablet RxNorm: 415598 1 Tablet(s) PO daily 04/24/2013 04/23/2013 Inactive Synthroid 88 mcg tablet RxNorm: 426397 1 Tablet(s) PO daily 04/24/2013 07/28/2013 Inactive Premarin 0.625 mg/gram vaginal cream RxNorm: 566336 1 Application VAG 1 applicator per vagina 3 times per week 04/23/2013 04/17/2014 Inactive Influenza Virus Vaccine 0.5 mL RxNorm: IM 04/23/2013 04/23/2013 Inactive digoxin 125 mcg tablet RxNorm: 737754 1 Tablet(s) PO daily 02/20/2013 04/20/2013 Inactive pt will be paying [employer] (On $4 list) Digox 125 mcg tablet RxNorm: 0041705 tablet oral 02/13/2013 03/20/2014 Inactive digoxin 125 mcg tablet RxNorm: 805046 1 Tablet(s) PO daily 02/13/2013 02/19/2013 Inactive diltiazem 90 mg tablet RxNorm: 502557 1/2 Tablet(s) PO QPM 02/13/2013 02/07/2014 Inactive also 180 q am Levoxyl 75 mcg tablet RxNorm: 827281 1 Tablet(s) PO 01/16/2013 04/23/2013 Inactive Coumadin 2 mg tablet RxNorm: 110563 6mg daily except 3mg on wed and fri Tablet(s) PO 01/15/2013 05/28/2013 Inactive 5 mg daily Coumadin 2 mg tablet RxNorm: 474699 6mg daily Tablet(s) PO 12/21/2012 01/14/2013 Inactive 5 mg daily silver sulfadiazine 1 % Topical Cream RxNorm: 828014 TOP apply to affected area with each dressing change 12/19/2012 12/25/2013 Inactive cephalexin 500 mg tablet RxNorm: 236025 1 Tablet(s) PO TID 12/11/2012 12/17/2012 Inactive digoxin 125 mcg tablet RxNorm: 3646472 1 Tablet(s) PO daily 10/30/2012 02/12/2013 Inactive digoxin 125 mcg tablet RxNorm: 6656843 2 tab tue thurs one other days Tablet(s) PO daily 10/23/2012 10/29/2012 Inactive lisinopril 10 mg tablet RxNorm: 596025 1 Tablet(s) PO daily 10/17/2012 08/14/2013 Inactive Cipro 500 mg tablet RxNorm: 288123 1 Tablet(s) PO BID 09/13/2012 09/19/2012 Inactive Coumadin 1 mg tablet RxNorm: 118791 1 Tablet(s) PO daily 09/03/2012 09/02/2012 Inactive Coumadin 1 mg tablet RxNorm: 597784 1 Tablet(s) PO daily 09/03/2012 12/21/2012 Inactive Coumadin 2 mg tablet RxNorm: 434588 Tablet(s) PO 07/25/2012 12/20/2012 Inactive 5 mg daily digoxin 125 mcg tablet RxNorm: 1378947 1 Tablet(s) PO daily 06/28/2012 10/22/2012 Inactive Coumadin 2 mg tablet RxNorm: 115149 Tablet(s) PO 06/27/2012 07/24/2012 Inactive 5mg daily except 4mg on monday Coumadin 2 mg tablet RxNorm: 362102 Tablet(s) PO 06/19/2012 06/26/2012 Inactive 5mg tue wed thur sat sun4mg mon frid(has 2mg and 1 mg tab) digoxin 125 mcg tablet RxNorm: 5731694 1 Tablet(s) PO daily 05/29/2012 06/27/2012 Inactive Coumadin 2 mg tablet RxNorm: 879784 Tablet(s) PO 05/15/2012 06/18/2012 Inactive 5mg tue thur sat sun4mg mon mon frid(has 2mg and 1 mg tab) Coumadin 2 mg tablet RxNorm: 719880 Tablet(s) PO 04/25/2012 05/14/2012 Inactive 5mg tue thru sat4mg mon wed frid sun(has 2mg and 1 mg tab) Metanx 3 mg-35 mg-2 mg tablet RxNorm: 1 Tablet(s) PO BID 04/18/2012 12/24/2013 Inactive dicyclomine 20 mg tablet RxNorm: 031409 1 Tablet(s) PO 04/18/2012 06/23/2013 Inactive one ac dinner and up to tid prn digoxin 125 mcg tablet RxNorm: 8108563 Tablet(s) PO daily except .25 on Tuesdays and 04/09/2012 05/28/2012 Inactive omeprazole 20 mg tablet,delayed release RxNorm: 179834 1 Tablet(s) PO BID 04/09/2012 04/03/2013 Inactive digoxin 125 mcg tablet RxNorm: 2855628 1 Tablet(s) PO UD daily except none on Tuesdays and 03/13/2012 04/08/2012 Inactive Premarin 0.625 mg/gram Vaginal Cream RxNorm: 012342 1 Application VAG 1 applicator per vagina 3 times per week 02/20/2012 02/13/2013 Inactive omeprazole 20 mg tablet,delayed release RxNorm: 489460 1 Tablet(s) PO BID 02/13/2012 04/08/2012 Inactive Vesicare 10 mg tablet RxNorm: 745112 1 Tablet(s) PO QHS 02/13/2012 02/06/2013 Inactive Diflucan 150 mg tablet RxNorm: 938495 1 Tablet(s) PO daily 02/13/2012 02/19/2012 Inactive omeprazole 20 mg tablet,delayed release RxNorm: 606240 1 Tablet(s) PO BID 01/06/2012 02/12/2012 Inactive Calcium 600 + D(3) 600 mg (1,500)-200 unit Tab RxNorm: 369150 2 Tablet(s) PO BID 01/06/2012 08/31/2015 Inactive diltiazem 90 mg tablet RxNorm: 945752 1/2 Tablet(s) PO QPM 12/26/2011 02/12/2013 Inactive also 180 q am diltiazem ER 180 mg Cap RxNorm: 298137 1 Capsule(s) PO QAM 12/26/2011 04/08/2012 Inactive 45mg q hs Flagyl 500 mg Tab RxNorm: 668412 1 Tablet(s) PO BID 12/14/2011 12/20/2011 Inactive dicyclomine 10 mg Cap RxNorm: 243094 1 Capsule(s) PO AC & HS 12/01/2011 12/25/2011 Inactive Levaquin 500 mg Tab RxNorm: 711002 1 Tablet(s) PO daily 11/23/2011 11/29/2011 Inactive Rocephin 500 mg Solution for Injection RxNorm: 967412 Inj 11/23/2011 11/23/2011 Inactive acyclovir 400 mg Tab RxNorm: 562952 1 Tablet(s) PO QID 11/10/2011 11/19/2011 Inactive acyclovir 400 mg Tab RxNorm: 108940 1 Tablet(s) PO QID 11/10/2011 11/09/2011 Inactive lisinopril 20 mg Tab RxNorm: 631478 1 Tablet(s) PO daily 10/03/2011 11/27/2011 Inactive lisinopril 20 mg Tab RxNorm: 828967 1 Tablet(s) PO daily 08/08/2011 10/02/2011 Inactive Reclast 5 mg/100 mL IV RxNorm: 360880 Milliliter(s) IV Yearly 06/08/2011 01/16/[address] Hansen manages Rocephin 500 mg Solution for Injection RxNorm: 096697 1 Milliliter(s) Inj 03/04/2011 08/08/2011 Inactive Ceftin 500 mg Tab RxNorm: 876039 1 Tablet(s) PO BID 03/04/2011 08/08/2011 Inactive Vitamin D3 1,000 unit tablet RxNorm: 793014 2 Tablet(s) PO daily No Start Date Active Carafate 100 mg/mL oral suspension RxNorm: 108135 2 Teaspoon(s) PO as needed with reflux symptoms No Start Date Active Stool Softener 100 mg tablet RxNorm: 7868615 2 Tablet(s) PO QHS No Start Date Active Beano tablet RxNorm: 2-3 Tablet(s) PO as needed No Start Date Active Probiotic Pearls 15 mg (1 billion cell) capsule,delayed release RxNorm: 1 Capsule(s) PO daily No Start Date Active Lipitor 10 mg tablet RxNorm: 477942 1 Tablet(s) PO daily No Start Date Active Miralax 17 gram oral powder packet RxNorm: 292670 1/2 packet PO QHS No Start Date Active multivitamin Tab RxNorm: 1 Tablet(s) PO daily No Start Date Active Tylenol Extra Strength 500 mg tablet RxNorm: 695146 2 Tablet(s) PO as needed No Start Date Active Combigan 0.2 %-0.5 % eye drops RxNorm: 383429 1 Drop(s) OPH BID No Start Date Active 1 drop twice daily left eye Lexapro 5 mg tablet RxNorm: 825315 1 Tablet(s) PO daily No Start Date Active Tatiana Allergy 180 mg tablet RxNorm: 460309 1 Tablet(s) PO daily No Start Date Active Lotemax 0.5 % eye drops,suspension RxNorm: 480457 1 Drop(s) OPH right eye BID No Start Date Active Levoxyl 50 mcg tablet RxNorm: 593037 1 Tablet(s) PO daily No Start Date 01/15/2013 Inactive lisinopril-hydrochlorothiazide 20 mg-25 mg Tab RxNorm: 407843 1 Tablet(s) PO daily No Start Date 08/07/2011 Inactive Metanx 3 mg-35 mg-2 mg tablet RxNorm: 1 Tablet(s) PO daily No Start Date 04/17/2012 Inactive diltiazem CD 120 mg capsule,extended release 24 hr RxNorm: 913059 1 Capsule(s) PO daily No Start Date 09/28/2015 Inactive lisinopril 20 mg tablet RxNorm: 909709 Tablet(s) PO No Start Date Active Lumigan 0.01 % Eye Drops RxNorm: 4153058 1 Drop(s) OPH daily Left eye No Start Date 12/10/2013 Inactive prednisolone acetate 1 % Eye Drops, Susp RxNorm: 0320591 1 Drop(s) OPH BID 1 drop right eye am and hs No Start Date 11/02/2015 Inactive Eliquis 5 mg tablet RxNorm: 3348059 1 Tablet(s) PO BID No Start Date 06/08/2016 Inactive potassium gluconate (bulk) Misc RxNorm: Miscellaneous No Start Date 12/25/2011 Inactive Calcium 600 + D(3) 600 mg (1,500)-200 unit Tab RxNorm: 176116 3 Tablet(s) PO daily No Start Date 2012 Inactive Zyrtec 10 mg tablet RxNorm: 7685759 1 Tablet(s) PO daily No Start Date 08/02/2016 Inactive Synthroid 100 mcg tablet RxNorm: 201206 1 Tablet(s) PO daily No Start Date 09/04/2013 Inactive metoprolol succinate ER 50 mg tablet,extended release 24 hr RxNorm: 838940 1 Tablet(s) PO daily No Start Date 03/23/2016 Inactive Metanx 3 mg-35 mg-2 mg tablet RxNorm: 1 Tablet(s) PO daily 2pm No Start Date 11/02/2015 Inactive Lexapro 5 mg tablet RxNorm: 440157 1 Tablet(s) PO daily No Start Date 08/18/2015 Inactive Iron (dried) oral RxNorm: 67579 oral No Start Date 11/02/2015 Inactive timolol 0.5 % Eye Drops RxNorm: 786682 1 Drop(s) OPH daily left eye No Start Date 12/18/2013 Inactive multivitamin Cap RxNorm: 1 Capsule(s) PO daily No Start Date 12/25/2011 Inactive dicyclomine 10 mg Cap RxNorm: 725715 2 Capsule(s) PO daily No Start Date 11/30/2011 Inactive silver sulfadiazine 1 % Topical Cream RxNorm: 638328 TOP apply to affected area with each dressing change No Start Date 12/18/2012 Inactive magnesium oxide 400 mg Tab RxNorm: 623807 1 Tablet(s) PO daily No Start Date 11/02/2015 Inactive Pradaxa 75 mg Cap RxNorm: 3481748 1 Capsule(s) PO BID No Start Date 04/09/2012 Inactive magnesium oxide 400 mg Tab RxNorm: 057071 2 Tablet(s) PO daily magnesium plus zinc No Start Date 12/25/2011 Inactive biotin 1000 mg RxNorm: 1 PO daily No Start Date 12/25/2011 Inactive Synthroid 50 mcg Tab RxNorm: 656672 Tablet(s) PO No Start Date 12/25/2011 Inactive diltiazem ER 180 mg Cap RxNorm: 033547 1 Capsule(s) PO daily No Start Date 12/25/2011 Inactive 1 D 3 1000 iu Oral RxNorm: Oral No Start Date 12/25/2011 Inactive Coumadin 2 mg tablet RxNorm: 382236 Tablet(s) PO No Start Date 04/24/2012 Inactive 5mg tue [id number] mon fri sat sun(has 2mg and 1 mg tab) dicyclomine 20 mg tablet RxNorm: 526334 Tablet(s) PO No Start Date 04/17/2012 Inactive one ac dinner and up to tid prn lactobacillus acidophilus tablet RxNorm: 1 Tablet(s) PO daily No Start Date 11/03/2015 Inactive Eliquis 2.5 mg tablet RxNorm: 2413991 1 Tablet(s) PO BID No Start Date 07/25/2017 Inactive Levoxyl 75 mcg Tab RxNorm: 683031 1 Tablet(s) PO daily No Start Date 10/02/2011 Inactive digoxin 125 mcg tablet RxNorm: 1604780 1 Tablet(s) PO daily No Start Date 03/12/2012 Inactive pantoprazole 40 mg tablet,delayed release RxNorm: 984122 1 Tablet(s) PO BID No Start Date 01/04/2016 Inactive cyclobenzaprine 5 mg tablet RxNorm: 527072 1/2 Tablet(s) PO Q8 PRN No Start Date 10/24/2016 Inactive diltiazem 90 mg Tab RxNorm: 619606 1/2 Tablet(s) PO QPM No Start Date 12/25/2011 Inactive Mirapex 1 mg Tab RxNorm: 524144 1 Tablet(s) PO QHS No Start Date 12/25/2011 Inactive Xanax 0.25 mg tablet RxNorm: 919529 1 Tablet(s) PO Q6 PRN No Start Date 11/10/2013 Inactive Premarin 0.625 mg/gram Vaginal Cream RxNorm: 933558 1 Application VAG 1 applicator per vagina 3 times per week No Start Date 02/19/2012 Inactive Synthroid 75 mcg Tab RxNorm: 308255 1 Tablet(s) PO daily No Start Date 04/17/2012 Inactive lisinopril 40 mg Tab RxNorm: 221202 1 Tablet(s) PO daily No Start Date 12/25/2011 Inactive Glucosamine Chondroitin Complex Advanced [id number]-1.65mg Tab RxNorm: 2 Tablet(s) PO daily No Start Date 08/08/2011 Inactive famotidine 20 mg tablet RxNorm: 592247 1 Tablet(s) PO QAM No Start Date 11/02/2015 Inactive cranberry extract 250 mg Tab RxNorm: 715588 2 Tablet(s) PO daily No Start Date 08/08/2011 Inactive Vitamin D3 1,000 unit capsule RxNorm: 552940 1 Capsule(s) PO daily No Start Date 08/31/2015 Inactive aspirin 81 mg Tab, Delayed Release RxNorm: 886021 1 Tablet(s) PO daily No Start Date 08/31/2015 Inactive diltiazem ER 120 mg capsule,extended release RxNorm: 827718 1 Capsule(s) PO daily patient would like 4 months at a time No Start Date 06/02/2013 Inactive omeprazole 20 mg Tab, Delayed Release RxNorm: 469093 2 Tablet(s) PO QHS No Start Date 2012 Inactive lisinopril 10 mg tablet RxNorm: 662215 1/2 Tablet(s) PO daily No Start Date 10/16/2012 Inactive Pred Forte 1 % Eye Drops RxNorm: 380492 1 Drop(s) OPH daily right eye No Start Date 12/25/2013 Inactive calcium carbonate 400 mg Chewable Tab RxNorm: 560354 1 Tablet(s) PO daily No Start Date 08/08/2011 Inactive Vesicare 10 mg tablet RxNorm: 804300 1 Tablet(s) PO QHS No Start Date 02/12/2012 Inactive Symbicort 160 mcg-4.5 mcg/actuation HFA aerosol inhaler RxNorm: 7016373 2 Puff(s) INH BID No Start Date 12/13/2017 Inactive potassium 99 mg tablet RxNorm: 1 Tablet(s) PO QPM No Start Date 12/25/2013 Inactive timolol 0.25 % Eye Drops RxNorm: 234228 1 Drop(s) OPH daily Left eye No Start Date 04/17/2012 Inactive diltiazem ER 90 mg capsule,extended release 12 hr RxNorm: 561028 1/2 Capsule(s) PO QPM No Start Date 04/28/2014 Inactive cyclobenzaprine 5 mg Tab RxNorm: 868742 1/2-1 Tablet(s) PO Q8 PRN No Start Date 12/25/2011 Inactive 1/2 - 1 tab q 8hrs prn muscle spasms Medication Administered Medication Codes Instructions Start Date Status Influenza Virus Vaccine 0.5 mL RxNorm: 04/23/2013 No longer Active Rocephin 500 mg Solution for Injection RxNorm: 421692 11/23/2011 No longer Active Immunizations Vaccine Codes [...] 04/18/2012 completed Assessments Condition Codes Effective Dates Essential (primary) hypertension ICD-10: I10 ICD-9: 401.9 01/31/2018 Other long term care administrator (current) drug therapy ICD-10: Z79.899 ICD-9: V58.83 01/31/2018 Atrophy of thyroid (acquired) ICD-10: E03.4 ICD-9: 244.8 01/31/2018 Encounter for general adult medical examination with abnormal findings ICD-10: Z00.01 ICD-9: V70.0 01/17/2018 Allergic rhinitis due to pollen ICD-10: J30.1 ICD-9: 477.0 12/14/2017 Cough ICD-10: R05 ICD-9: 786.2 12/14/2017 Chronic atrial fibrillation ICD-10: I48.2 ICD-9: 427.31 12/14/2017 Other allergic rhinitis ICD-10: J30.89 ICD-9: 477.8 12/07/2017 Essential (primary) hypertension ICD-10: I10 ICD-9: 401.1 11/14/2017 Encounter for immunization ICD-10: Z23 ICD-9: V04.81 [...] ICD-9: 455.6 03/24/2016 Other long term care administrator (current) drug therapy ICD-10: Z79.899 ICD-9: V58.69 [...] Visit Reason For Visit Effective Dates Notes hypertension 01/31/2018 Annual Medicare Wellness Exam 01/17/2018 [...] Item Item Code Result Date Free T4 [id number] FREE T4 1.19 ng/dL 05/08/2018 Digoxin Ord9 DIGOXIN 0.6 NG/ML 05/08/2018 Tsh Ord6 TSH (3rd IS) 10.58 uIU/mL 05/08/2018 Tsh Ord6 TSH (3rd IS) 1.07 uIU/mL 01/31/2018 Free T4 Afa286 FREE T4 1.63 ng/dL 01/31/2018 Digoxin Ord9 DIGOXIN 0.8 NG/ML 01/31/2018 C RAP A SC [id number] Strep A Negative 11/21/2016 Thyroid Antibodies 633215 THYROGLOBULIN ANTIBODY . 11/04/2016 Thyroid Antibodies 589644 THYROGLOBULIN ANTIBODY 919 IU/mL 11/04/2016 Thyroid Antibodies 030460 THYROID PEROXIDASE (TPO) AB . 11/04/2016 Thyroid Antibodies 723872 THYROID PEROXIDASE (TPO) AB 10 IU/mL 11/04/2016 Total T3 Ord42 TT3 0.64 ng/ml 11/03/2016 Free T4 Pfn418 FREE T4 1.39 ng/dL 11/02/2016 Tsh Ord6 [...] Differential Ord2 RDW 13.8 % 05/26/2015 Pt Cru1780 PT 25.0 seconds 05/26/2015 Pt Rvr3506 INR 2.4 05/26/2015 Pt Ntt2588 Low Intensity - 1.5-2.0 05/26/2015 Pt Vrk3092 Mod intensity - 2.0-3.0 05/26/2015 Pt Ueb9223 Hi intensity - 3.0-4.0 05/26/2015 Uric Acid [...] Digoxin Ord9 DIGOXIN 0.6 NG/ML 05/06/2015 Pt Vzb2804 PT 23.3 seconds 05/06/2015 Pt Kyl3170 INR 2.1 05/06/2015 Pt Ohi7384 Low Intensity - 1.5-2.0 05/06/2015 Pt Jym4533 Mod intensity - 2.0-3.0 05/06/2015 Pt Jir7604 Hi intensity - 3.0-4.0 05/06/2015 Free T4 Wdw794 FREE T4 1.65 ng/dL 05/06/2015 Comp Metabolic Kch525 NA 132 mEq/L 05/06/2015 Comp Metabolic Qna692 K 4.1 mEq/L 05/06/2015 Comp Metabolic Cey416 CL 98 mEq/L 05/06/2015 Comp Metabolic Lew442 CO2 27.0 mEq/L 05/06/2015 Comp Metabolic Jap889 ANION GAP 11 05/06/2015 Comp Metabolic Hsr959 GLUCOSE 71 mg/dL 05/06/2015 Comp Metabolic Jrm297 Creat 0.7 mg/dL 05/06/2015 Comp Metabolic Mro291 eGFR 82 ml/min/1.73m2 05/06/2015 Comp Metabolic Jox096 BUN 16 mg/dL 05/06/2015 Comp Metabolic Iui248 B/C Ratio 22.2 Ratio 05/06/2015 Comp Metabolic Nau394 CALCIUM 9.4 mg/dL 05/06/2015 Comp Metabolic Fhf966 ALK PHOS 60 U/L 05/06/2015 Comp Metabolic Pxd209 AST(SGOT) 22 U/L 05/06/2015 Comp Metabolic Dbx171 ALT(SGPT) 24 U/L 05/06/2015 Comp Metabolic Dyv729 BILI T 0.8 mg/dL 05/06/2015 Comp Metabolic Ehy904 ALBUMIN 4.3 g/dL 05/06/2015 Comp Metabolic Avv973 TPRO 7.6 g/dL 05/06/2015 Comp Metabolic Zri555 GLOB 3.3 g/dL 05/06/2015 Comp Metabolic Qkj157 A/G Ratio 1.3 Ratio 05/06/2015 Comp Metabolic Kjf663 Osmo 264 mOsmo 05/06/2015 DIGOXIN 7252349 DIGOXIN 1.1 NG/ML 05/15/2013 PT/MC 1760715 PRO TIME 21.7 SEC 05/15/2013 PT/MC 5575748 INR MCMC 2.0 05/15/2013 CHEM 14 2968743 AST 24 U/L 04/23/2013 CHEM 14 2030348 ALT 31 IU/L 04/23/2013 CHEM 14 0469855 BUN 13 MG/DL 04/23/2013 CHEM 14 7356696 ALBUMIN 4.1 GM/DL 04/23/2013 CHEM 14 4760655 CHLORIDE 103 MMOL/L 04/23/2013 CHEM 14 7881750 BILI TOT 0.5 MG/DL 04/23/2013 CHEM 14 9170977 ALK PHOS 44 U/L 04/23/2013 CHEM 14 9285296 SODIUM 137 MMOL/L 04/23/2013 CHEM 14 3273568 CREATININE 0.61 MG/DL 04/23/2013 CHEM 14 7515118 CALCIUM 9.5 MG/DL 04/23/2013 CHEM 14 4334942 POTASSIUM 4.0 MMOL/L 04/23/2013 CHEM 14 8004740 PROT TOT 6.6 GM/DL 04/23/2013 CHEM 14 9995732 GLUCOSE 99 MG/DL 04/23/2013 CHEM 14 2334754 BICARB 27 MMOL/L 04/23/2013 CHEM 14 3125151 ANION GAP 7 MEQ/L 04/23/2013 GFR CALC 6288059 GFR AA >60 ML/MIN 04/23/2013 GFR CALC 3945694 GFR NON-AA >60 ML/MIN 04/23/2013 TSH 2055907 TSH 4.204 uIU/ML 04/23/2013 CBC 4618363 WBC 6.7 10e9/L 04/23/2013 CBC 2952878 RBC 4.19 10e12/L 04/23/2013 CBC 7972469 HGB 13.2 g/dL 04/23/2013 CBC 9823414 HCT DET 39.2 % 04/23/2013 CBC 6892002 MCV 93.6 fL 04/23/2013 CBC 2683618 MCH 31.5 pg 04/23/2013 CBC 4594376 MCHC 33.7 g/dL 04/23/2013 CBC 4603737 PLT 202 10e9/L 04/23/2013 CBC 7825497 MPV 11.4 fL 04/23/2013 CBC 2886431 YANIRA % 70.5 % 04/23/2013 CBC 8911481 LY % 19.6 % 04/23/2013 CBC 5867108 MON % 8.2 % 04/23/2013 CBC 9591668 EOS % 1.6 % 04/23/2013 CBC 0162984 BASO % 0.1 % 04/23/2013 CBC 8856203 RDW 13.7 % 04/23/2013 CBC 2497762 ABS YANIRA 4.72 10e9/L 04/23/2013 CBC 7385571 ABS LYMPH 1.31 10e9/L 04/23/2013 CBC 0435581 ABS MONO 0.55 10e9/L 04/23/2013 CBC 5873434 ABS EOS 0.11 10e9/L 04/23/2013 CBC 3928051 ABS BASO 0.01 10e9/L 04/23/2013 CBC 9148335 RDW-SD 45.7 fL 04/23/2013 PT/MC 7339282 PRO TIME 13.4 SEC 12/17/2012 PT/MC 2645514 INR MCMC 1.0 12/17/2012 PT/MC 6889150 PRO TIME 16.6 SEC 12/14/2012 PT/MC 8472759 INR MCMC 1.4 12/14/2012 PT/MC 4355554 PRO TIME 27.2 SEC 12/11/2012 PT/MC 3636884 INR MCMC 2.6 12/11/2012 DIGOXIN 7632491 DIGOXIN 2.1 NG/ML 03/08/2012 GFR CALC 4333307 GFR AA >60 ML/MIN 03/08/2012 GFR CALC 6575574 GFR NON-AA >60 ML/MIN 03/08/2012 CHEM 14 7193981 AST 16 U/L 03/08/2012 CHEM 14 5870614 ALT 14 IU/L 03/08/2012 CHEM 14 2161474 BUN 10 MG/DL 03/08/2012 CHEM 14 8706278 ALBUMIN 4.2 GM/DL 03/08/2012 CHEM 14 9797458 CHLORIDE 100 MMOL/L 03/08/2012 CHEM 14 8007645 BILI TOT 0.5 MG/DL 03/08/2012 CHEM 14 7156804 ALK PHOS 59 U/L 03/08/2012 CHEM 14 9033727 SODIUM 136 MMOL/L 03/08/2012 CHEM 14 1189562 CREATININE 0.65 MG/DL 03/08/2012 CHEM 14 3655339 CALCIUM 9.4 MG/DL 03/08/2012 CHEM 14 4854102 POTASSIUM 3.9 MMOL/L 03/08/2012 CHEM 14 8160006 PROT TOT 6.7 GM/DL 03/08/2012 CHEM 14 0856986 GLUCOSE 90 MG/DL 03/08/2012 CHEM 14 9976329 BICARB 30 MMOL/L 03/08/2012 CHEM 14 2777012 ANION GAP 6 MEQ/L 03/08/2012 CHEM 14 9744711 AST 16 U/L 11/23/2011 CHEM 14 5191980 ALT 14 IU/L 11/23/2011 CHEM 14 9258473 BUN 11 MG/DL 11/23/2011 CHEM 14 5390426 ALBUMIN 4.1 GM/DL 11/23/2011 CHEM 14 7443566 CHLORIDE 100 MMOL/L 11/23/2011 CHEM 14 1366266 BILI TOT 0.5 MG/DL 11/23/2011 CHEM 14 1275868 ALK PHOS 50 U/L 11/23/2011 CHEM 14 8867988 SODIUM 135 MMOL/L 11/23/2011 CHEM 14 0467553 CREATININE 0.57 MG/DL 11/23/2011 CHEM 14 9291496 CALCIUM 9.1 MG/DL 11/23/2011 CHEM 14 1560865 POTASSIUM 4.5 MMOL/L 11/23/2011 CHEM 14 8143009 PROT TOT 6.5 GM/DL 11/23/2011 CHEM 14 7850566 GLUCOSE 89 MG/DL 11/23/2011 CHEM 14 5918843 BICARB 28 MMOL/L 11/23/2011 CHEM 14 8415233 ANION GAP 7 MEQ/L 11/23/2011 GFR CALC 5116198 GFR AA >60 ML/MIN 11/23/2011 GFR CALC 8213436 GFR NON-AA >60 ML/MIN 11/23/2011 CBC 9570251 WBC 5.1 10e9/L 11/23/2011 CBC 5043299 RBC 4.06 10e12/L 11/23/2011 CBC 3356328 HGB 12.5 g/dL 11/23/2011 CBC 6714004 HCT DET 37.3 % 11/23/2011 CBC 1150971 MCV 91.9 fL 11/23/2011 CBC 0813225 MCH 30.8 pg 11/23/2011 CBC 3049661 MCHC 33.5 g/dL 11/23/2011 CBC 6469643 PLT 222 10e9/L 11/23/2011 CBC 1850843 MPV 10.8 fL 11/23/2011 CBC 3186373 YANIRA % 64.2 % 11/23/2011 CBC 2070647 LY % 22.3 % 11/23/2011 CBC 9098149 MON % 11.3 % 11/23/2011 CBC 8155493 EOS % 1.8 % 11/23/2011 CBC 2197510 BASO % 0.4 % 11/23/2011 CBC 6396497 RDW 13.6 % 11/23/2011 CBC 7264812 ABS YANIRA 3.27 10e9/L 11/23/2011 CBC 2369280 ABS LYMPH 1.14 10e9/L 11/23/2011 CBC 4007083 ABS MONO 0.58 10e9/L 11/23/2011 CBC 8601755 ABS EOS 0.09 10e9/L 11/23/2011 CBC 4893017 ABS BASO 0.02 10e9/L 11/23/2011 CBC 6387916 RDW-SD 44.5 fL 11/23/2011 UA 74899 Specific [place] 1.005 03/04/2011 UA 12362 PH 6 03/04/2011 UA 72851 GLUCOSE N 03/04/2011 UA 36600 Protein N 03/04/2011 UA 74908 Blood ++ 03/04/2011 UA 11846 Bilirubin N 03/04/2011 UA 26495 Ketones N 03/04/2011 UA 17855 Urobilinogen N 03/04/2011 UA 48500 Nitrite N 03/04/2011 UA 91663 Leukocytes N 03/04/2011 URINALYSIS NONAUTO W/O SCOPE 92194 Specific [place] 1.010 DateTime(Free Text in Aprima) URINALYSIS NONAUTO W/O SCOPE 28887 PH 6.5 DateTime(Free Text in Aprima) URINALYSIS NONAUTO W/O SCOPE 72022 GLUCOSE neg DateTime(Free Text in Aprima) URINALYSIS NONAUTO W/O SCOPE 46478 Protein neg DateTime(Free Text in Apr[employer]) URINALYSIS NONAUTO W/O SCOPE 67913 Blood 3+ DateTime(Free Text in Apr[employer]) URINALYSIS NONAUTO W/O SCOPE 22605 Bilirubin neg DateTime(Free Text in Apr[employer]) URINALYSIS NONAUTO W/O SCOPE 20264 Ketones neg DateTime(Free Text in Apr[employer]) URINALYSIS NONAUTO W/O SCOPE 18124 Urobilinogen neg DateTime(Free Text in Apr[employer]) URINALYSIS NONAUTO W/O SCOPE 87777 Nitrite neg DateTime(Free Text in Aprima) URINALYSIS NONAUTO W/O SCOPE 71670 Leukocytes neg DateTime(Free Text in Aprima) URINALYSIS NONAUTO W/O SCOPE 07762 Specific [place] 1.010 DateTime(Free Text in Aprima) URINALYSIS NONAUTO W/O SCOPE 19535 PH 5 DateTime(Free Text in Aprima) URINALYSIS NONAUTO W/O SCOPE 99630 GLUCOSE neg DateTime(Free Text in Aprima) URINALYSIS NONAUTO W/O SCOPE 18938 Protein neg DateTime(Free Text in Aprima) URINALYSIS NONAUTO W/O SCOPE 77923 Blood 3+ DateTime(Free Text in Aprima) URINALYSIS NONAUTO W/O SCOPE 84062 Bilirubin neg DateTime(Free Text in Aprima) URINALYSIS NONAUTO W/O SCOPE 02998 Ketones neg DateTime(Free Text in Aprima) URINALYSIS NONAUTO W/O SCOPE 54925 Urobilinogen neg DateTime(Free Text in Aprima) URINALYSIS NONAUTO W/O SCOPE 47028 Nitrite neg DateTime(Free Text in Aprima) URINALYSIS NONAUTO W/O SCOPE 72549 Leukocytes neg DateTime(Free Text in Aprima) URINALYSIS NONAUTO W/O SCOPE 73025 Specific [place] 1.005 DateTime(Free Text in Aprima) URINALYSIS NONAUTO W/O SCOPE 18654 PH 8.5 DateTime(Free Text in Aprima) URINALYSIS NONAUTO W/O SCOPE 50870 GLUCOSE neg DateTime(Free Text in Aprima) URINALYSIS NONAUTO W/O SCOPE 82930 Protein neg DateTime(Free Text in Aprima) URINALYSIS NONAUTO W/O SCOPE 02009 Blood 1+ DateTime(Free Text in Aprima) URINALYSIS NONAUTO W/O SCOPE 68568 Bilirubin neg DateTime(Free Text in Aprima) URINALYSIS NONAUTO W/O SCOPE 74062 Ketones neg DateTime(Free Text in Aprima) URINALYSIS NONAUTO W/O SCOPE 54560 Urobilinogen neg DateTime(Free Text in Aprima) URINALYSIS NONAUTO W/O SCOPE 16909 Nitrite neg DateTime(Free Text in Aprima) URINALYSIS NONAUTO W/O SCOPE 66634 Leukocytes neg DateTime(Free Text in Aprima) URINALYSIS NONAUTO W/O SCOPE 54698 Specific [place] 1.005 DateTime(Free Text in Aprima) URINALYSIS NONAUTO W/O SCOPE 49378 PH 7 DateTime(Free Text in Aprima) URINALYSIS NONAUTO W/O SCOPE 25719 GLUCOSE neg DateTime(Free Text in Aprima) URINALYSIS NONAUTO W/O SCOPE 80899 Protein neg DateTime(Free Text in Aprima) URINALYSIS NONAUTO W/O SCOPE 64905 Blood large DateTime(Free Text in Aprima) URINALYSIS NONAUTO W/O SCOPE 52766 Bilirubin neg DateTime(Free Text in Aprima) URINALYSIS NONAUTO W/O SCOPE 74932 Ketones neg DateTime(Free Text in Aprima) URINALYSIS NONAUTO W/O SCOPE 67476 Urobilinogen 0.2 DateTime(Free Text in Aprima) URINALYSIS NONAUTO W/O SCOPE 84196 Nitrite neg DateTime(Free Text in Aprima) URINALYSIS NONAUTO W/O SCOPE 48395 Leukocytes neg DateTime(Free Text in Aprima) URINALYSIS NONAUTO W/O SCOPE 25781 Specific [place] 1.005 DateTime(Free Text in Aprima) URINALYSIS NONAUTO W/O SCOPE 69439 PH 7.5 DateTime(Free Text in Aprima) URINALYSIS NONAUTO W/O SCOPE 19356 GLUCOSE DateTime(Free Text in Aprima) URINALYSIS NONAUTO W/O SCOPE 61016 Protein trace DateTime(Free Text in Aprima) URINALYSIS NONAUTO W/O SCOPE 70370 Blood 4+ DateTime(Free Text in Apr[employer]) URINALYSIS NONAUTO W/O SCOPE 03597 Bilirubin DateTime(Free Text in Apr[employer]) URINALYSIS NONAUTO W/O SCOPE 30261 Ketones DateTime(Free Text in Aprima) URINALYSIS NONAUTO W/O SCOPE 44632 Urobilinogen DateTime(Free Text in Apr[employer]) URINALYSIS NONAUTO W/O SCOPE 85954 Nitrite DateTime(Free Text in Aprima) URINALYSIS NONAUTO W/O SCOPE 77822 Leukocytes trace DateTime(Free Text in ) Review of Systems System Result Effective Dates Constitutional No recent illness 01/31/2018 Constitutional No [...] mastoids 12/14/2017 None Full Exam - General 1995 Ears/Nose/Throat otoscopic exam Overall: external auditory canals [...] FLU VACC PRSV FREE INC ANTIG CPT-4: 96941 03/27/2017 PPPS, SUBSEQ VISIT CPT- 4: G0439 01/23/2017 URINALYSIS NONAUTO W/O SCOPE CPT-4: 47701 05/17/2016 ADMIN INFLUENZA VIRUS VAC CPT-4: G0008 03/24/2016 FLU VACC PRSV FREE INC ANTIG CPT-4: 62933 03/24/2016 ADMIN PNEUMOCOCCAL VACCINE SNOMED CT: 95137546 CPT-4: G0009 05/13/2015 PNEUMOCOCCAL VACC [address]: 65384127 CPT-4: 54584 05/13/2015 Pneumococcal Polysaccharide Vaccine, 23-Valent, Ad Assigned to/Mela Bledsoe CPT-4: 28241Xlbynmd 07/11/2014 ADMIN PNEUMOCOCCAL VACCINE SNOMED CT: 68712507 CPT-4: G0009 07/11/2014 URINALYSIS NONAUTO W/O SCOPE CPT-4: 84023 05/14/2014 URINALYSIS NONAUTO W/O SCOPE CPT-4: 87756 05/06/2014 URINALYSIS NONAUTO W/O SCOPE CPT-4: 82432 04/29/2014 ADMIN INFLUENZA VIRUS VAC CPT-4: G0008 03/20/2014 FLU VAC NO PRSV 4 SCOTT 3 YRS+ Assigned to/Mela Bledsoe CPT-4: 28389Pstckze 03/20/2014 URINALYSIS NONAUTO W/O SCOPE CPT-4: 05980 07/29/2013 URINALYSIS NONAUTO W/O SCOPE CPT-4: 86377 07/01/2013 URINALYSIS NONAUTO W/O SCOPE CPT-4: 47088 06/20/2013 ROUTINE VENIPUNCTURE CPT- 4: 02177 05/15/2013 ROUTINE VENIPUNCTURE CPT- 4: 92299 04/23/2013 ADMIN INFLUENZA VIRUS VAC CPT-4: G0008 04/23/2013 FLULAVAL VACC, 3 YRS & >, IM CPT-4: Q2036 04/23/2013 ROUTINE VENIPUNCTURE CPT- 4: 67724 12/17/2012 ROUTINE VENIPUNCTURE CPT- 4: 79146 12/14/2012 ROUTINE VENIPUNCTURE CPT- 4: 59248 12/11/2012 PRESCRIP TRANSMIT VIA ERX SY CPT-4: G8553 12/11/2012 PRESCRIP TRANSMIT VIA ERX SY CPT-4: G8553 10/30/2012 URINALYSIS NONAUTO W/O SCOPE CPT-4: 40895 09/13/2012 ADMIN INFLUENZA VIRUS VAC CPT-4: G0008 04/18/2012 FLULAVAL VACC, 3 YRS & >, IM CPT-4: Q2036 04/18/2012 URINALYSIS NONAUTO W/O SCOPE CPT-4: 74352 03/13/2012 ROUTINE VENIPUNCTURE CPT- 4: 15710 03/08/2012 URINALYSIS NONAUTO W/O SCOPE CPT-4: 76358 02/13/2012 PRESCRIP TRANSMIT VIA ERX SY CPT-4: G8553 02/13/2012 ROCEPHIN, PER 250 MG CPT- 4: J0696 11/23/2011 ROUTINE VENIPUNCTURE CPT- 4: 53033 11/23/2011 URINALYSIS NONAUTO W/O SCOPE CPT-4: 36895 11/23/2011 PRESCRIP TRANSMIT VIA ERX SY CPT-4: G8553 11/23/2011 REMOVE IMPACTED EAR WAX UNI CPT-4: 93510 10/17/2011 PRESCRIP TRANSMIT VIA ERX SY CPT-4: G8553 10/03/2011 PRESCRIP TRANSMIT VIA ERX SY CPT-4: G8553 08/08/2011 URINALYSIS NONAUTO W/O SCOPE CPT-4: 26572 03/15/2011 URINALYSIS NONAUTO W/O SCOPE CPT-4: 38188 03/04/2011 THER/PROPH/DIAG INJ SC/IM CPT-4: 39301 03/04/2011 ROCEPHIN, PER 250 MG CPT- 4: J0696 03/04/2011 Vital Signs Date Vital 01/31/2018 Blood Pressure 1: 116/68 Code: 8480-6 BMI: 21.1 Code: 64699-4 Heart Rate 1: 89 bpm Height: 5' SpO2: 98% Weight: 108 lbs 01/17/2018 Blood Pressure 1: 134/74 Code: 8480-6 BMI: 21.3 Code: 81879-9 Heart Rate 1: 74 bpm Height: 5' SpO2: 96% Waist Measure (cm): 71 cm Weight: 109 lbs 12/14/2017 Blood Pressure 1: 150/78 Code: 8480-6 BMI: 21.5 Code: 73237-9 Heart Rate 1: 77 bpm Height: 5' SpO2: 98% Temperature: 36.7 (C) / 98.1 (F) Weight: 110 lbs 12/07/2017 Blood Pressure 1: 134/70 Code: 8480-6 Heart Rate 1: 76 bpm Height: SpO2: 98% Temperature: 36.8 (C) / 98.2 (F) Weight: 11/14/2017 Blood Pressure 1: 152/84 Code: 8480-6 BMI: 21.9 Code: 25059-6 Heart Rate 1: 95 bpm Height: 5' SpO2: 93% Weight: 112 lbs 03/27/2017 Blood Pressure 1: 122/70 Code: 8480-6 BMI: 21.3 Code: 94636-5 Heart Rate 1: 75 bpm Height: 5' Weight: 109 lbs 01/23/2017 BMI: 21.5 Code: 68921-6 Height: 5' Weight: 110 lbs 01/19/2017 Blood Pressure 1: 112/60 Code: 8480-6 BMI: 21.5 Code: 76480-0 Heart Rate 1: 54 bpm Height: 5' SpO2: 97% Weight: 110 lbs 11/29/2016 Blood Pressure 1: 126/68 Code: 8480-6 Height: 5' Weight: 11/23/2016 Blood Pressure 1: 130/72 Code: 8480-6 BMI: 21.9 Code: 63512-4 Heart Rate 1: 48 bpm Height: 5' SpO2: 97% Temperature: 36.7 (C) / 98.0 (F) Weight: 112 lbs 11/21/2016 Blood Pressure 1: 134/76 Code: 8480-6 BMI: 21.9 Code: 19298-4 Heart Rate 1: 41 bpm Height: 5' SpO2: 94% Temperature: 36.9 (C) / 98.4 (F) Weight: 112 lbs 11/08/2016 Blood Pressure 1: 126/74 Code: 8480-6 Heart Rate 1: 82 bpm Height: 5' SpO2: 94% Weight: 11/02/2016 Blood Pressure 1: 112/66 Code: 8480-6 Heart Rate 1: 72 bpm Height: 5' SpO2: 95% Weight: 10/27/2016 Blood Pressure 1: 130/64 Code: 8480-6 BMI: 21.7 Code: 12283-2 Heart Rate 1: 81 bpm Height: 5' SpO2: 96% Weight: 111 lbs 08/31/2016 Blood Pressure 1: 132/72 Code: 8480-6 BMI: 22.5 Code: 11635-9 Heart Rate 1: 66 bpm Height: 5' Weight: 115 lbs 07/27/2016 Blood Pressure 1: 166/74 Code: 8480-6 BMI: 23.2 Code: 88083-6 Heart Rate 1: 48 bpm Height: 5' SpO2: 90% Temperature: 36.8 (C) / 98.2 (F) Weight: 119 lbs 06/23/2016 Blood Pressure 1: 128/70 Code: 8480-6 BMI: 22.3 Code: 26218-2 Heart Rate 1: 75 bpm Height: 5' SpO2: 97% Weight: 114 lbs 06/09/2016 BMI: 22.7 Code: 49818-9 Heart Rate 1: 73 bpm Height: 5' SpO2: 97% Weight: 116 lbs 05/25/2016 Blood Pressure 1: 138/62 Code: 8480-6 BMI: 22.8 Code: 45399-9 Heart Rate 1: 76 bpm Height: 5' Weight: 117 lbs 05/17/2016 Blood Pressure 1: 116/70 Code: 8480-6 BMI: 22.8 Code: 28346-8 Heart Rate 1: 74 bpm Height: 5' SpO2: 94% Weight: 117 lbs 03/24/2016 Blood Pressure 1: 154/78 Code: 8480-6 BMI: 22.5 Code: 63822-4 Heart Rate 1: 78 bpm Height: 5' SpO2: 97% Weight: 115 lbs 02/02/2016 Blood Pressure 1: 132/70 Code: 8480-6 BMI: 22.3 Code: 03244-7 Heart Rate 1: 74 bpm Height: 5' SpO2: 94% Weight: 114 lbs 2016 Blood Pressure 1: 120/62 Code: 8480-6 BMI: 22.0 Code: 01163-5 Heart Rate 1: 68 bpm Height: 5' Weight: 112 lbs 8 oz 12/21/2015 Blood Pressure 1: 122/82 Code: 8480-6 BMI: 21.9 Code: 02889-9 Heart Rate 1: 83 bpm Height: 5' SpO2: 93% Temperature: 37.1 (C) / 98.7 (F) Weight: 112 lbs 11/03/2015 Blood Pressure 1: 122/72 Code: 8480-6 BMI: 22.4 Code: 42903-4 Heart Rate 1: 62 bpm Height: 5' Weight: 114 lbs 8 oz 10/19/2015 Blood Pressure 1: 138/62 Code: 8480-6 BMI: 21.1 Code: 54963-4 Heart Rate 1: 79 bpm Height: 5' Weight: 108 lbs 10/13/2015 Blood Pressure 1: 120/62 Code: 8480-6 BMI: 21.0 Code: 60035-8 Heart Rate 1: 76 bpm Height: 5' SpO2: 98% Weight: 108 lbs 09/29/2015 Blood Pressure 1: 130/70 Code: 8480-6 BMI: 20.2 Code: 07542-2 Heart Rate 1: 72 bpm Height: 5' Weight: 104 lbs 09/15/2015 Blood Pressure 1: 128/78 Code: 8480-6 BMI: 19.9 Code: 40170-6 Heart Rate 1: 72 bpm Height: 5' Weight: 102 lbs 8 oz 09/01/2015 Blood Pressure 1: 128/68 Code: 8480-6 BMI: 19.8 Code: 62523-9 Height: 5' Weight: 102 lbs 05/26/2015 Blood Pressure 1: 140/68 Code: 8480-6 BMI: 19.0 Code: 70993-7 Heart Rate 1: 70 bpm Height: 5' Weight: 98 lbs 05/21/2015 Blood Pressure 1: 140/78 Code: 8480-6 BMI: 19.2 Code: 40091-8 Heart Rate 1: 85 bpm Height: 5' SpO2: 95% Weight: 99 lbs 05/07/2015 Blood Pressure 1: 140/82 Code: 8480-6 BMI: 19.0 Code: 61176-4 Heart Rate 1: 76 bpm Height: 5' Weight: 98 lbs 03/23/2015 Blood Pressure 1: 142/60 Code: 8480-6 BMI: 18.6 Code: 28835-0 Heart Rate 1: 52 bpm Height: 5' Weight: 96 lbs 03/09/2015 Blood Pressure 1: 138/74 Code: 8480-6 BMI: 18.8 Code: 99295-2 Heart Rate 1: 60 bpm Height: 5' Weight: 97 lbs 10/30/2014 Blood Pressure 1: 112/82 Code: 8480-6 BMI: 19.0 Code: 75450-0 Heart Rate 1: 64 bpm Height: 5' Weight: 98 lbs 07/11/2014 Blood Pressure 1: 146/70 Code: 8480-6 BMI: 18.8 Code: 26457-0 Heart Rate 1: 68 bpm Height: 5' Weight: 97 lbs 05/20/2014 Blood Pressure 1: 142/76 Code: 8480-6 BMI: 18.6 Code: 16328-5 Heart Rate 1: 78 bpm Height: 5' Weight: 96 lbs 04/29/2014 Blood Pressure 1: 138/62 Code: 8480-6 BMI: 18.3 Code: 67426-4 Heart Rate 1: 80 bpm Height: 5' Weight: 94 lbs 8 oz 03/20/2014 Blood Pressure 1: 142/68 Code: 8480-6 BMI: 18.6 Code: 85094-3 Heart Rate 1: 96 bpm Height: 5' Weight: 96 lbs 03/05/2014 Blood Pressure 1: 122/72 Code: 8480-6 BMI: 18.8 Code: 29045-8 Heart Rate 1: 82 bpm Height: 5' SpO2: 97% Weight: 97 lbs 01/29/2014 Blood Pressure 1: 124/78 Code: 8480-6 BMI: 18.8 Code: 35949-3 Heart Rate 1: 60 bpm Height: 5' Weight: 97 lbs 01/14/2014 Blood Pressure 1: 120/58 Code: 8480-6 BMI: 19.2 Code: 22356-9 Heart Rate 1: 56 bpm Height: 5' Temperature: 36.9 (C) / 98.4 (F) Weight: 99 lbs 12/25/2013 Blood Pressure 1: 118/78 Code: 8480-6 BMI: 19.2 Code: 68760-9 Heart Rate 1: 68 bpm Height: 5' Weight: 99 lbs 11/27/2013 Blood Pressure 1: 102/68 Code: 8480-6 BMI: 19.4 Code: 58810-7 Heart Rate 1: 56 bpm Height: 5' Weight: 100 lbs 09/12/2013 Blood Pressure 1: 142/62 Code: 8480-6 BMI: 19.7 Code: 65851-1 Heart Rate 1: 72 bpm Height: 5'1" Weight: 104 lbs 08/15/2013 Blood Pressure 1: 152/92 Code: 8480-6 Heart Rate 1: 96 bpm Weight: 102 lbs 08/01/2013 Blood Pressure 1: 122/68 Code: 8480-6 BMI: 19.1 Code: 11660-1 Heart Rate 1: 68 bpm Height: 5'1" Weight: 101 lbs 07/01/2013 Blood Pressure 1: 130/72 Code: 8480-6 BMI: 19.5 Code: 81347-5 Heart Rate 1: 80 bpm Height: 5'1" Temperature: 36.1 (C) / 97.0 (F) Weight: 103 lbs 05/29/2013 Blood Pressure 1: 126/72 Code: 8480-6 BMI: 19.3 Code: 50886-5 Heart Rate 1: 80 bpm Height: 5'1" Weight: 102 lbs 05/15/2013 Blood Pressure 1: 156/74 Code: 8480-6 BMI: 19.3 Code: 98875-2 Heart Rate 1: 88 bpm Height: 5'1" Weight: 102 lbs 04/23/2013 Blood Pressure 1: 140/82 Code: 8480-6 BMI: 19.3 Code: 74707-2 Heart Rate 1: 72 bpm Height: 5'1" Weight: 102 lbs 03/21/2013 Blood Pressure 1: 142/74 Code: 8480-6 Heart Rate 1: 92 bpm Weight: 103 lbs 01/16/2013 Blood Pressure 1: 120/56 Code: 8480-6 BMI: 20.0 Code: 95963-8 Heart Rate 1: 72 bpm Height: 5'1" Weight: 106 lbs 12/19/2012 Blood Pressure 1: 118/66 Code: 8480-6 Heart Rate 1: 84 bpm Weight: 12/10/2012 Blood Pressure 1: 132/62 Code: 8480-6 Heart Rate 1: 64 bpm Weight: 103 lbs 10/30/2012 Blood Pressure 1: 122/66 Code: 8480-6 BMI: 19.9 Code: 60317-9 Heart Rate 1: 61 bpm Height: 5'1" [...] 1: 118/72 Code: 8480-6 BMI: 21.0 Code: 26032-3 Heart Rate 1: 66 bpm Height: 5'1" Respiratory Rate: 16 bpm Weight: 111 lbs 2012 Blood Pressure 1: 122/62 Code: 8480-6 Heart Rate 1: 68 bpm Weight: 110 lbs 12/01/2011 Blood Pressure 1: 150/60 Code: 8480-6 BMI: 20.8 Code: 79194-8 Heart Rate 1: 60 bpm Height: 5'1" Respiratory Rate: 16 bpm Weight: 110 lbs 11/23/2011 Blood Pressure 1: 170/68 Code: 8480-6 BMI: 21.1 Code: 11232-6 Heart Rate 1: 64 bpm Height: 5'1" Temperature: 36.3 (C) / 97.3 (F) Weight: 111 lbs 8 oz 10/17/2011 Blood Pressure 1: 148/62 Code: 8480-6 Heart Rate 1: 74 bpm 10/03/2011 Blood Pressure 1: 102/48 Code: 8480-6 BMI: 21.4 Code: 42967-9 Heart Rate 1: 76 bpm Height: 5'1" Respiratory Rate: 16 bpm Weight: 113 lbs 08/08/2011 Blood Pressure 1: 128/60 Code: 8480-6 Heart Rate 1: 80 bpm Respiratory Rate: 16 bpm Weight: 113 lbs 05/09/2011 Blood Pressure 1: 130/62 Code: 8480-6 BMI: 20.7 Code: 93847-2 Heart Rate 1: 64 bpm Height: 5'1" Respiratory Rate: 16 bpm Weight: 109 lbs 8 oz 03/29/2011 Blood Pressure 1: 120/62 Code: 8480-6 BMI: 20.2 Code: 66843-2 Heart Rate 1: 66 bpm Height: 5'1" Respiratory Rate: 12 bpm Weight: 107 lbs 03/15/2011 Blood Pressure 1: 120/64 Code: 8480-6 BMI: 19.8 Code: 38638-3 Heart Rate 1: 76 bpm Height: 5'1" Respiratory Rate: 16 bpm Weight: 105 lbs Functional Status No Functional Status data History of Present Illness Symptom Name Status Result Effective Date Notes hypertension Quality chronic 01/31/2018 None hypertension Quality [...] contacts 03/20/2014 sat [place] to [place] who had tonsillitis sore throat Pertinent Findings [...] data Encounters Encounter Performer Location Codes Date ([id number]) 08846 EST. PATIENT, LEVEL IV Diagnosis: Essential (primary) hypertension[ICD10: I10] Diagnosis: Atrophy of thyroid (acquired)[ICD10: E03.4] Diagnosis: Other half-way (current) drug therapy[ICD10: Z79.899] Karma Bahena MD, [facility] CPT-4: 66393 01/31/2018 [id number]) 58329 EST. PATIENT, LEVEL IV Diagnosis: Essential (primary) hypertension[ICD10: I10] Diagnosis: Chronic atrial fibrillation[ICD10: I48.2] Diagnosis: Allergic rhinitis due to pollen[ICD10: J30.1] Diagnosis: Cough[ICD10: R05] [facility] CPT-[facility]: 06129 12/14/2017 01412 EST. PATIENT, LEVEL IV Diagnosis: Other allergic rhinitis[ICD10: J30.89] [facility] CPT- 4: 29219 12/07/2017 [id number]) 44469 EST. PATIENT, LEVEL IV Diagnosis: Essential (primary) hypertension[ICD10: I10] Diagnosis: Chronic atrial fibrillation[ICD10: I48.2] Diagnosis: Atrophy of thyroid (acquired)[ICD10: E03.4] Karma Bahena MD [facility] CPT-4: 35633 11/14/2017 ([id number]) 71255 EST. PATIENT, LEVEL IV Diagnosis: Essential (primary) hypertension[ICD10: I10] Diagnosis: Localized edema[ICD10: R60.0] Diagnosis: Encounter for immunization[ICD10: Z23] Diagnosis: Age-related osteoporosis without current pathological fracture[ICD10: M81.0] Karma Bahena MD, [facility] CPT-4: 69207 03/27/2017 ([id number]) 19662 EST. PATIENT, LEVEL IV Diagnosis: Essential (primary) hypertension[ICD10: I10] Diagnosis: Chronic atrial fibrillation[ICD10: I48.2] Diagnosis: Dysphonia[ICD10: R49.0] Karma Bahena MD [facility] CPT-4: 95079 01/19/2017 ([id number]) Miscellaneous no charge Diagnosis: Cough[ICD10: R05] Diagnosis: Acute upper respiratory infection, unspecified[ICD10: J06.9] Laura Bahena MD [facility] CPT-4: 86322 11/29/2016 59028 EST. PATIENT, LEVEL III Diagnosis: Cough[ICD10: R05] Diagnosis: Acute laryngopharyngitis[ICD10: J06.0] Katharine Bahena MD, [facility] CPT- 4: 39369 11/23/2016 ([id number]) 48252 EST. PATIENT, LEVEL III Diagnosis: Acute laryngopharyngitis[ICD10: J06.0] Laura Bahena MD [facility] CPT-4: 67780 11/21/2016 ([id number]) Miscellaneous no charge Diagnosis: Laceration without foreign body of right forearm, subsequent encounter[ICD10: S51.811D] Karma Bahena MD [facility] CPT-4: 42100 11/17/2016 ([id number]) Miscellaneous no charge Diagnosis: Laceration without foreign body of right forearm, subsequent encounter[ICD10: S51.811D] Karma Bahena MD [facility] CPT-4: 40602 11/14/2016 ([id number]) Miscellaneous no charge Diagnosis: Laceration without foreign body of right forearm, subsequent encounter[ICD10: S51.811D] Karma Bahena MD [facility] CPT-4: 57279 11/11/2016 ([id number]) Miscellaneous no charge Diagnosis: Laceration without foreign body of right forearm, subsequent encounter[ICD10: S51.811D] Karma Bahena MD [facility] CPT-4: 10818 11/10/2016 ([id number]) 18926 EST. PATIENT, LEVEL II Diagnosis: Laceration without foreign body of right forearm, subsequent encounter[ICD10: S51.811D] Karma Bahena MD [facility] CPT-4: 83450 11/08/2016 ([id number]) 43443 EST. PATIENT, LEVEL IV Diagnosis: Atrophy of thyroid (acquired)[ICD10: E03.4] Diagnosis: Chronic atrial fibrillation[ICD10: I48.2] Diagnosis: Laceration without foreign body of right forearm, subsequent encounter[ICD10: S51.811D] Krama Bahena MD [facility] CPT-4: 05307 11/02/2016 ([id number]) 04738 EST. PATIENT, LEVEL III Diagnosis: Laceration without foreign body of right forearm, initial encounter[ICD10: S51.811A] Laura Bahena MD [facility] CPT-4: 06913 10/27/2016 ([id number]) 61403 EST. PATIENT, LEVEL IV Diagnosis: Essential (primary) hypertension[ICD10: I10] Diagnosis: Chronic atrial fibrillation[ICD10: I48.2] Karma Bahena MD [facility] CPT-4: 97202 08/31/2016 ([id number]) 30216 EST. PATIENT, LEVEL IV Diagnosis: Localized edema[ICD10: R60.0] Diagnosis: Essential (primary) hypertension[ICD10: I10] Diagnosis: Abdominal distension (gaseous)[ICD10: R14.0] Karma Bahena MD, [facility] CPT-4: 37195 07/27/2016 ([id number]) 61234 EST. PATIENT, LEVEL IV Diagnosis: Essential (primary) hypertension[ICD10: I10] Diagnosis: Chronic atrial fibrillation[ICD10: I48.2] Diagnosis: Localized edema[ICD10: R60.0] Karma Bahena MD [facility] CPT-4: 99022 06/23/2016 ([id number]) 37313 EST. PATIENT, LEVEL III Diagnosis: Localized edema[ICD10: R60.0] Karma Bahena MD [facility] CPT-4: 81952 06/09/2016 ([id number]) 06019 EST. PATIENT, LEVEL III Diagnosis: Irritable bowel syndrome without diarrhea[ICD10: K58.9] Diagnosis: Pruritus ani[ICD10: L29.0] Karma Bahena MD [facility] CPT-4: 84514 05/25/2016 ([id number]) 65364 EST. PATIENT, LEVEL III Diagnosis: Abdominal distension (gaseous)[ICD10: R14.0] Diagnosis: Encounter for screening mammogram for malignant neoplasm of breast[ICD10: Z12.31] Karma Bahena MD [facility] CPT-4: 90367 05/17/2016 ([id number]) 48733 EST. PATIENT, LEVEL IV Diagnosis: Essential (primary) hypertension[ICD10: I10] Diagnosis: First degree hemorrhoids[ICD10: K64.0] Diagnosis: Encounter for immunization[ICD10: Z23] Karma Bahena MD [facility] CPT-4: 63029 03/24/2016 ([id number]) 96587 EST. PATIENT, LEVEL III Diagnosis: Epidermal cyst[ICD10: L72.0] Diagnosis: Essential (primary) hypertension[ICD10: I10] Diagnosis: Chronic atrial fibrillation[ICD10: I48.2] Diagnosis: Other long term care administrator (current) drug therapy[ICD10: Z79.899] Karma Bahena MD [facility] CPT-4: 78681 02/02/2016 ([id number]) 30748 EST. PATIENT, LEVEL III Diagnosis: Acute anal fissure[ICD10: K60.0] Karma Bahena MD [facility] CPT-4: 88044 2016 ([id number]) 93201 EST. PATIENT, LEVEL III Diagnosis: Allergic rhinitis due to pollen[ICD10: J30.1] Diagnosis: Acute upper respiratory infection, unspecified[ICD10: J06.9] Laura Bahena MD, [facility] CPT-4: 20729 12/21/2015 ([id number]) 36260 EST. PATIENT, LEVEL III Diagnosis: Essential (primary) hypertension[ICD10: I10] Diagnosis: Chronic atrial fibrillation[ICD10: I48.2] Karma Bahena MD, [facility] CPT-4: 01870 11/03/2015 ([id number]) Miscellaneous no charge Diagnosis: Impacted cerumen, right ear[ICD10: H61.21] Katharine Bahena MD, [facility] CPT-4: 39786 10/19/2015 36963 EST. PATIENT, LEVEL IV Diagnosis: Impacted cerumen, right ear[ICD10: H61.21] Diagnosis: Other allergic rhinitis[ICD10: J30.89] Katharine Bahena MD, [facility] CPT- 4: 31960 10/13/2015 ([id number]) 98260 EST. PATIENT, LEVEL IV Diagnosis: Essential (primary) hypertension[ICD10: I10] Diagnosis: Chronic atrial fibrillation[ICD10: I48.2] Diagnosis: Urge incontinence[ICD10: N39.41] Diagnosis: Age-related osteoporosis without current pathological fracture[ICD10: M81.0] Karma Bahena MD, [facility] CPT-4: 46443 09/29/2015 ([id number]) 41273 EST. PATIENT, LEVEL IV Diagnosis: Essential (primary) hypertension[ICD10: I10] Diagnosis: Chronic atrial fibrillation[ICD10: I48.2] Diagnosis: Irritable bowel syndrome without diarrhea[ICD10: K58.9] Diagnosis: Unspecified hemorrhoids[ICD10: K64.9] Karma Bahena MD, [facility] CPT-4: 06079 09/15/2015 ([id number]) 44431 EST. 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 PATIENT, LEVEL III Diagnosis: Hematuria, unspecified[ICD10: R31.9] Diagnosis: Other urethritis[ICD10: N34.2] Diagnosis: Other specified noninflammatory disorders of vagina[ICD10: N89.8] Karma Bahena MD [facility] CPT-4: 07488 05/26/2015 94679 EST. PATIENT, LEVEL IV Diagnosis: Gout, unspecified[ICD10: M10.9] Karma Bahena MD, [facility] CPT-4: 13717 05/21/2015 ([id number]) 14950 EST. PATIENT, LEVEL IV Diagnosis: Chronic atrial fibrillation[ICD10: I48.2] Diagnosis: Irritable bowel syndrome without diarrhea[ICD10: K58.9] Diagnosis: Cystocele, unspecified[ICD10: N81.10] Diagnosis: Urge incontinence[ICD10: N39.41] Diagnosis: Fecal smearing[ICD10: R15.1] Diagnosis: Hypothyroidism, unspecified[ICD10: E03.9] Karma Bahena MD, [facility] CPT-4: 28845 05/07/2015 ([id number]) 15701 EST. PATIENT, LEVEL III Diagnosis: Atrial fibrillation[ICD9: 427.31] Diagnosis: Bloating[ICD9: 787.3] Karma Bahena MD [facility] CPT-4: 00886 03/23/2015 ([id number]) 59404 EST. PATIENT, LEVEL IV Diagnosis: Abdominal pain[ICD9: 789.00] Diagnosis: Atrial fibrillation[ICD9: 427.31] Diagnosis: ENCNTR LONG-ANTICOAG USE[ICD9: V58.61] Karma Bahena MD, [facility] CPT-4: 02733 03/09/2015 ([id number]) 44565 EST. PATIENT, LEVEL IV Diagnosis: HEMATURIA NOS[ICD9: 599.70] Diagnosis: Atrial fibrillation[ICD9: 427.31] Diagnosis: HYPOTHYROIDISM[ICD9: 244.9] Karma Bahena MD, [facility] CPT-4: 99009 10/30/2014 ([id number]) 25416 EST. PATIENT, LEVEL IV Diagnosis: Atrial fibrillation[ICD9: 427.31] Diagnosis: ALLERGIC RHINITIS[ICD9: 477.9] Diagnosis: Need for pneumococcal vaccine[ICD9: V03.82] Diagnosis: Osteoarthritis[ICD9: 715.90] Diagnosis: Osteoporosis[ICD9: 733.00] Karma Bahena MD [facility] CPT-4: 53614 07/11/2014 ([id number]) 93488 EST. PATIENT, LEVEL III Diagnosis: Urge incontinence[ICD9: 788.31] Diagnosis: Dysuria[ICD9: 788.1] Karma Bahena MD [facility] CPT-4: 78155 05/20/2014 ([id number]) 05658 EST. PATIENT, LEVEL IV Diagnosis: Atrial fibrillation[ICD9: 427.31] Diagnosis: Hematuria[ICD9: 599.70] Diagnosis: Dysuria[ICD9: 788.1] Diagnosis: ESSENTIAL HYPERTENSION[ICD9: 401.9] Karma Bahena MD [facility] CPT- 4: 19658 04/29/2014 ([id number]) 16775 EST. PATIENT, LEVEL IV Diagnosis: ESSENTIAL HYPERTENSION[ICD9: 401.9] Diagnosis: ALLERGIC RHINITIS[ICD9: 477.9] Karma Bahena MD [facility] CPT-4: 58751 03/20/2014 ([id number]) 60691 EST. PATIENT, LEVEL IV Diagnosis: ESSENTIAL HYPERTENSION[ICD9: 401.9] Diagnosis: ATRIAL FIBRILLATION[ICD9: 427.31] Diagnosis: Irritable bowel[ICD9: 564.1] Karma Bahena MD [facility] CPT-4: 30563 03/05/2014 ([id number]) 21475 EST. PATIENT, LEVEL IV Diagnosis: Esophageal reflux[ICD9: 530.81] Diagnosis: DIARRHEA[ICD9: 787.91] Diagnosis: ABDOM PAIN NOS SITE[ICD9: 789.00] Karma Bahena MD [facility] CPT- 4: 09501 01/29/2014 ([id number]) 92602 EST. PATIENT, LEVEL III Diagnosis: Irritable bowel[ICD9: 564.1] Diagnosis: DIARRHEA[ICD9: 787.91] Laura Bahena MD, [facility] CPT-4: 28627 01/14/2014 ([id number]) 92845 EST. PATIENT, LEVEL IV Diagnosis: ESSENTIAL HYPERTENSION[ICD9: 401.9] Diagnosis: ATRIAL FIBRILLATION[ICD9: 427.31] Diagnosis: URGE INCONTINENCE[ICD9: 788.31] Diagnosis: MALAISE AND FATIGUE[ICD9: 780.79] Diagnosis: Dyspnea[ICD9: 786.09] Karma Bahena MD [facility] CPT-4: 69383 12/25/2013 ([id number]) 99563 EST. PATIENT, LEVEL IV Diagnosis: ESSENTIAL HYPERTENSION[SNOMED: 45640682] Diagnosis: ATRIAL FIBRILLATION[ICD9: 427.31] Diagnosis: Abdominal pain[ICD9: 789.00] Diagnosis: ESOPHAGEAL REFLUX[ICD9: 530.81] Karma Bahena MD, [facility] CPT-4: 32606 11/27/2013 ([id number]) 74142 EST. PATIENT, LEVEL IV Diagnosis: ESSENTIAL HYPERTENSION[SNOMED: 29284498] Diagnosis: ATRIAL FIBRILLATION[ICD9: 427.31] Diagnosis: Chronic osteoarthritis[ICD9: 715.90] Karma Bahena MD, [facility] CPT- 4: 59251 09/12/2013 ([id number]) 76022 EST. PATIENT, LEVEL III Diagnosis: ESSENTIAL HYPERTENSION[SNOMED: 04699015] Diagnosis: Bruising[ICD9: 924.9] Diagnosis: ENCNTR LONG-RX USE NEC[ICD9: V58.69] Karma Bahena MD [facility] CPT- 4: 94746 08/15/2013 ([id number]) 36220 EST. PATIENT, LEVEL IV Diagnosis: ESSENTIAL HYPERTENSION[SNOMED: 71822485] Diagnosis: Hematuria[ICD9: 599.70] Diagnosis: Dysuria[ICD9: 788.1] Karma Bahena MD, [facility] CPT-4: 53907 08/01/2013 ([id number]) 35787 EST. PATIENT, LEVEL III Diagnosis: UTI[ICD9: 599.0] Diagnosis: Hematuria[ICD9: 599.70] Laura Bahena MD, [facility] CPT-4: 78018 07/01/2013 ([id number]) 43758 EST. PATIENT, LEVEL III Diagnosis: ATRIAL FIBRILLATION[ICD9: 427.31] Diagnosis: ESSENTIAL HYPERTENSION[SNOMED: 40576490] Karma Bahena MD [facility] CPT-4: 41345 05/29/2013 ([id number]) 64292 EST. PATIENT, LEVEL IV Diagnosis: Atrial fibrillation[ICD9: 427.31] Diagnosis: Encounter for monitoring digoxin therapy[ICD9: V58.83] Diagnosis: ESSENTIAL HYPERTENSION[SNOMED: 01600817] Karma Bahena MD [facility] CPT-4: 23627 05/15/2013 ([id number]) 86772 EST. PATIENT, LEVEL IV Diagnosis: ESSENTIAL HYPERTENSION[SNOMED: 39067964] Diagnosis: ATRIAL FIBRILLATION[ICD9: 427.31] Diagnosis: PALPITATIONS[ICD9: 785.1] Diagnosis: Dizziness and giddiness[ICD9: 780.4] Karma Bahena MD [facility] CPT- 4: 33088 04/23/2013 ([id number]) 85117 EST. PATIENT, LEVEL III Diagnosis: OTHER CONSTIPATION[ICD9: 564.09] Diagnosis: ABDOM PAIN NOS SITE[ICD9: 789.00] Laura Bahena MD [facility] CPT- 4: 71560 03/21/2013 ([id number]) 06775 EST. PATIENT, LEVEL IV Diagnosis: ESSENTIAL HYPERTENSION[SNOMED: 08167266] Diagnosis: Atrial fibrillation[ICD9: 427.31] Karma Bahena MD [facility] CPT- 4: 79834 01/16/2013 ([id number]) Miscellaneous no charge Diagnosis: CELLULITIS OF HAND[ICD9: 682.4] Karma Bahena MD [facility] CPT-4: 09766 12/19/2012 ([id number]) Miscellaneous no charge Diagnosis: ENCOUNTER FOR THERAPEUTIC DRUG MONITORING[ICD9: V58.83] Diagnosis: CELLULITIS OF HAND[ICD9: 682.4] Karma Bahena MD [facility] CPT-4: 00585 12/14/2012 Miscellaneous no charge Diagnosis: CELLULITIS OF HAND[ICD9: 682.4] Karma Bahena MD [facility] CPT-4: 36734 12/12/2012 04847 EST. PATIENT, LEVEL II Diagnosis: CELLULITIS OF HAND[ICD9: 682.4] Diagnosis: ENCNTR LONG-RX USE NEC[ICD9: V58.69] Diagnosis: LONG-TERM USE ANTICOAGUL[ICD9: V58.61] Karma Bahena MD [facility] CPT-4: 24122 12/11/2012 ([id number]) 09287 EST. PATIENT, LEVEL III Diagnosis: CELLULITIS OF HAND[ICD9: 682.4] Karma Bahena MD [facility] CPT-4: 07771 12/10/2012 ([id number]) 36657 EST. PATIENT, LEVEL IV Diagnosis: Elevated digoxin level[ICD9: 796.0] Diagnosis: ATRIAL FIBRILLATION[ICD9: 427.31] Diagnosis: Inflammatory arthritis[ICD9: 714.9] Karma Bahena MD [facility] CPT- 4: 30948 10/30/2012 (60493) 25664 EST. PATIENT, LEVEL IV Diagnosis: Atrial fibrillation[ICD9: 427.31] Diagnosis: Anticoagulant long-term use[ICD9: V58.61] Diagnosis: ESSENTIAL HYPERTENSION[SNOMED: 42184787] Karma Bahena MD [facility] CPT-4: 79869 08/08/2012 ([id number]) 46271 EST. PATIENT, LEVEL IV Diagnosis: ABDOM PAIN NOS SITE[ICD9: 789.00] Diagnosis: Constipation - functional[ICD9: 564.09] Diagnosis: EDEMA[ICD9: 782.3] Diagnosis: ATRIAL FIBRILLATION[ICD9: 427.31] Karma Bahena MD [facility] CPT- 4: 78286 07/11/2012 ([id number]) 72171 EST. PATIENT, LEVEL III Diagnosis: Cystocele[ICD9: 618.01] Diagnosis: Rectocele[ICD9: 618.04] Karma Bahena MD [facility] CPT-4: 13548 05/08/2012 ([id number]) 45793 EST. 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 PATIENT, LEVEL IV Diagnosis: ATRIAL FIBRILLATION[ICD9: 427.31] Diagnosis: URGE INCONTINENCE[ICD9: 788.31] Diagnosis: MALAISE AND FATIGUE[ICD9: 780.79] Diagnosis: Dyspnea[ICD9: 786.09] Karma Bahena MD [facility] CPT-4: 38686 02/20/2012 08583 EST. PATIENT, LEVEL IV Diagnosis: Hematuria[ICD9: 599.70] Diagnosis: Vaginal yeast infection[ICD9: 112.1] Diagnosis: ATRIAL FIBRILLATION[ICD9: 427.31] Laura Bahena MD, [facility] CPT- 4: 27950 02/13/2012 (76002) 21170 EST. PATIENT, LEVEL IV Diagnosis: Atrial fibrillation[ICD9: 427.31] Diagnosis: Anticoagulation goal of INR 2 to 3[ICD9: V58.83] Diagnosis: Urinary incontinence, urge[ICD9: 788.31] Diagnosis: ESSENTIAL HYPERTENSION[SNOMED: 06699053] Karma Bahena MD [facility] CPT-4: 40903 02/01/2012 (13696) 20828 EST. PATIENT, LEVEL IV Diagnosis: Atrial fibrillation[ICD9: 427.31] Diagnosis: Anticoagulant long-term use[ICD9: V58.61] Diagnosis: ESSENTIAL HYPERTENSION[SNOMED: 21215402] Karma Bahena MD [facility] CPT-4: 78746 2012 08431 EST. PATIENT, LEVEL IV Diagnosis: UTI[ICD9: 599.0] Diagnosis: ESSENTIAL HYPERTENSION[SNOMED: 01541793] Diagnosis: MALAISE AND FATIGUE[ICD9: 780.79] Diagnosis: Esophageal reflux[ICD9: 530.81] Karma Bahena MD, [facility] CPT-4: 24331 12/01/2011 ([id number]) 67696 EST. PATIENT, LEVEL IV Diagnosis: UTI (urinary tract infection)[ICD9: 599.0] Diagnosis: ESSENTIAL HYPERTENSION[SNOMED: 60243385] Diagnosis: URGE INCONTINENCE[ICD9: 788.31] Karma Bahena MD [facility] CPT-4: 92717 11/23/2011 ([id number]) 58955 EST. PATIENT, LEVEL IV Diagnosis: ESSENTIAL HYPERTENSION[SNOMED: 96040824] Diagnosis: IMPACTED CERUMEN[ICD9: 380.4] Diagnosis: MALAISE AND FATIGUE[ICD9: 780.79] Diagnosis: EDEMA[ICD9: 782.3] Karma Bahena MD [facility] CPT-4: 09470 10/03/2011 77096 EST. PATIENT, LEVEL IV Diagnosis: ESSENTIAL HYPERTENSION[SNOMED: 51739128] Diagnosis: Generalized osteoarthritis[ICD9: 715.09] Diagnosis: OSTEOPOROSIS[ICD9: 733.00] Karma Bahena MD, [facility] CPT-4: 64393 08/08/2011 94123 EST. PATIENT, LEVEL IV Diagnosis: Muscle cramp[ICD9: 729.82] Diagnosis: Torticollis[ICD9: 723.5] Diagnosis: Rash[ICD9: 782.1] Karma Bahena MD [facility] CPT-4: 83906 05/09/2011 37826 EST. PATIENT, LEVEL IV Diagnosis: Leg cramps, sleep related[ICD9: 327.52] Diagnosis: Underweight[ICD9: 783.22] Karma Bahena MD [facility] CPT-4: 47325 03/29/2011 41798 EST. PATIENT, LEVEL IV Diagnosis: UTI[ICD9: 599.0] Diagnosis: Urge incontinence[ICD9: 788.31] Diagnosis: Loss of weight[ICD9: 783.21] Diagnosis: Palpitations[ICD9: 785.1] Diagnosis: Peripheral neuropathy, idiopathic[ICD9: 356.9] Karma Bahena MD, [facility] CPT-4: 25729 03/15/2011 Plan of Care Planned Activity Notes Codes Status Date Appointment: [phone] [facility] (15 min) Moderate 03/14/2018 Visit Plan: Hypertension [...] control. 01/31/2018 Appointment: [phone] [facility] - Annual Wellness Visit 01/31/2018 Patient [...] allergy spray. 12/14/2017 Appointment: Karma Bahena WPtel: [address] [place] [address] (15 min) Moderate 12/14/2017 Patient Education: Patient [...] spray. 12/07/2017 Appointment: Katharine Dai WPtel: [facility] (15 min) [...] 11/14/2017 Appointment: Karma Bahena WPtel: [address] [facility] (15 min) Moderate 11/14/2017 Patient Education: [...] today. 03/27/2017 Appointment: Karma Bahena WPtel: [address] [facility] (15 min) Moderate 03/27/2017 Patient Education: [...] surrogate. 01/23/2017 Appointment: Katharine Dai WPtel: [phone] [facility] [facility] - Annual Wellness Visit 01/23/2017 Patient [...] becoming uncontrolled. 01/19/2017 Appointment: Karma Bahena WPtel: [address] [place] [address] (15 min) Moderate 01/19/2017 Patient Education: Patient Medication Summary Completed 01/19/2017 Care Plan: Referral Order SNOMED-CT : [id number] Pending 01/19/2017 Appointment: Karma Bahena WPtel: [address] [place] [address] (15 min) Moderate 01/04/2017 Appointment: Karma Bahena WPtel: [address] [place] [address] (15 min) Moderate 12/28/2016 Visit Plan: DAI-whfru-wbo zpack-call if symptoms do not resolve or if any worse. Patient verbalized understanding of plan. 11/29/2016 Appointment: Laura Colin WPtel: [address] [place], [place] [phone] (15 min) Moderate 11/29/2016 Patient Education: Patient [...] patient's pharmacy. 11/23/2016 Appointment: Katharine Dai WPtel: [phone] [facility] (15 min) Moderate 11/23/2016 Patient Education: Patient Medication Summary Completed 11/23/2016 Visit Plan: Pharyngitis-Discussed natural and expected course of this diagnosis and need to alert me if symptoms do not follow expected course, or if any worse. Recommended salt water gargles as needed for pain. Ty lenol/motrin as needed for fever/discomfort. 11/21/2016 Appointment: Laura Colin WPtel: [phone] [phone] [place] (15 min) Moderate 11/21/2016 Patient [...] monitor symptoms. 11/08/2016 Appointment: Karma Bahena WPtel: [phone] [facility] [place] (10 min) Simple 11/08/2016 Patient [...] Appointment: [phone] (15 min) Moderate 11/02/2016 Appointment: Nurse Visit 11/02/2016 Patient Education: Patient Medication Summary Completed 11/02/2016 Appointment: Nurse Visit 10/31/2016 Visit Plan: Laceration-right forearm- Pt was instructed to keep the wound clean, cleanse with sterile saline, use bactroban ointment, call if redness, pustular drainage, or any other acute concerns. Follow up Monday for dressing changes. 10/27/2016 Appointment: Laura Colin WPtel: [address] [phone] [place] (30 min) Complex 10/27/2016 Patient [...] in symptoms. 08/31/2016 Appointment: Karma Bahena [facility]Ptel[phone] (15 min) Moderate 08/31/2016 Patient Education: Patient [...] your swelling. 07/27/2016 Appointment: Karma Bahena WPtel: [address] [place], [place] [id number] (15 min) Moderate 07/27/2016 Patient Education: Patient [...] of lasix 06/23/2016 Appointment: Karma Bahena WPtel: [address] [place], [place] [phone] (15 min) Moderate 06/23/2016 Patient Education: Patient Medication Summary Completed 06/23/2016 Patient Education: Hypertension Completed 06/23/2016 Visit Plan: Edema - with Dyspnea - RX for laxis and compression socks - pt to call if not improving. 06/09/2016 Appointment: Karma Bahena WPtel: [facility]5 [facility] (15 min) Moderate 06/09/2016 Patient Education: Patient Medication Summary Completed 06/09/2016 Visit Plan: Abdominal pain and rectal itching - recommended pt to use betamethasone on vaginal/rectal region, monitor symptoms call if not improving. 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 12/21/2015 Appointment: [phone] [place] (30 min) Complex 12/21/2015 Patient Education: [...] uncontrolled. 11/03/2015 Appointment: Karma Bahena WPtel: [facility] (15 min) Moderate 11/03/2015 Patient Education: Patient [...] Hypertension Completed 09/01/2015 Appointment: Karma Bahena WPtel: [address] [place] [id number] (15 min) Moderate 07/13/2015 Visit Plan: Hematuria/Urethritis [...] 05/13/2015 Care Plan: Referral Order SNOMED-CT : [id number] Ordered 05/08/2015 Visit Plan: Atrial Fibrillation - [...] referral to Dr. Collins. 05/07/2015 Appointment: Karma Bhaena WPtel: [address] [place], [place] [id number] (15 min) Moderate 05/07/2015 Patient Education: Patient [...] becoming uncontrolled. 10/30/2014 Appointment: Karma Bahena WPtel: [address] [place], [place] [phone] Follow up 10/30/2014 Patient Education: Patient Medication Summary Completed 10/30/2014 Appointment: Karma Bahena WPtel: [address] [place], [place] [phone] Follow up 07/22/2014 Visit Plan: Atrial Fibrillation [...] in hospital. 07/11/2014 Appointment: Karma Bahena WPtel: [facility]5 [facility] Sick 07/11/2014 Patient Education: Patient Medication Summary Completed 07/11/2014 Appointment: Karma Bahena WPtel: [facility]5 [facility] Follow up 07/07/2014 Visit Plan: Urinary incontinence [...] times weekly. 05/20/2014 Appointment: Karma Bahena WPtel: [address] [place], [place] [phone] Follow up 05/20/2014 Patient Education: Patient Medication Summary Completed 05/20/2014 Appointment: Karma Bahena WPtel: [address] [place], [place] [phone] Lab Draw 05/14/2014 Patient Education: Patient Medication [...] vesicare. 04/29/2014 Appointment: Karma Bahena WPtel[phone] Follow up 04/29/2014 Patient Education: Patient Medication [...] allergy spray. 03/20/2014 Appointment: Karma Bahena WPtel: [phone] [facility] 03/20/2014 Patient Education: Patient Medication Summary [...] uncontrolled. 03/05/2014 Appointment: Karma Bahena WPtel: [phone] Follow up 03/05/2014 Patient Education: Patient Medication [...] report. 01/29/2014 Appointment: Karma Bahena WPtel: [phone] Follow up 01/29/2014 Patient Education: Patient Medication [...] Patient do an overnight oxygen study on [employer] as she has cardiac history, weight loss, and nocturnal hypoxemia may be a part of her weight loss and fatigue. 12/25/2013 Appointment: Karma Bahena WPtel: [address] [facility] Follow up 12/25/2013 Patient Education: Patient [...] daily. 11/27/2013 Appointment: Karma Bahena WPtel: [phone] Follow up 11/27/2013 Patient Education: Patient Medication [...] heart rate. Osteoarthritis - send pt to [facility] physical therapy for gereral osteoarhtritis program for strengthening and pain reduction. Hypertension - well controlled - continue with current medications, continue with no added salt diet. Pt has been encouraged to exercise daily. The pt has been advised to call the office if there are any acute concerns about change in blood pressure readings at home. 09/12/2013 Appointment: Karma Bahena WPtel: [address] [facility] Follow up 09/12/2013 Patient Education: Patient Medication Summary Completed 09/12/2013 Patient Education: Hypertension Completed 09/12/2013 Appointment: Karma Bahena WPtel: [facility]5 [facility] [place] Follow up 08/21/2013 Visit Plan: Hypertension [...] PT/INR 08/15/2013 Appointment: Karma Bahena WPtel: [facility] Follow up 08/15/2013 Patient Education: Patient [...] urethra. 08/01/2013 Appointment: Karma Bahena WPtel: [facility] [place] Follow up 08/01/2013 Patient Education: Patient Medication Summary Completed 08/01/2013 Patient Education: Hypertension Completed 08/01/2013 Appointment: [facility]el[phone] [place] Lab Draw 07/29/2013 Patient Education: Patient Medication Summary Completed 07/29/2013 Visit Plan: Osteoporosis-prolia on june 25-patient to let Dr Hansen know 07/01/2013 Appointment: Laura Colin WPtel: [phone] Follow up 07/01/2013 Appointment: Karma Bahena WPtel: [facility] [place] Follow up 07/01/2013 Patient Education: Patient Medication Summary Completed 07/01/2013 Appointment: Karma Bahena WPtel: [facility] Follow up 06/25/2013 Appointment: Karma Bahena WPtel: [address] [place] [id number] [place] Lab Draw 06/20/2013 Patient Education: Patient Medication Summary Completed 06/20/2013 Appointment: Karma Bahena WPtel: [facility] [place] Lab Draw 06/19/2013 Visit Plan: Atrial [...] home. 05/29/2013 Appointment: Karma Bahena WPtel: [facility] [place] Follow up 05/29/2013 Patient Education: Patient [...] at home. 05/15/2013 Appointment: Karma Bahena WPtel: [facility] [place] Other 05/15/2013 Patient Education: Patient [...] shot today. 04/23/2013 Appointment: Karma Bahena WPtel: [facility]5 [facility] [place] Other 04/23/2013 Patient Education: Patient [...] regimen. 03/21/2013 Appointment: Laura Colin WPtel: [facility]8 [phone] Follow up 03/21/2013 Patient Education: [...] becoming uncontrolled. 01/16/2013 Appointment: Karma Bahena WPtel: [address] [place], [place] [phone] Follow up 01/16/2013 Patient Education: Patient Medication Summary Completed 01/16/2013 Patient Education: Hypertension Completed 01/16/2013 Visit Plan: Wound Instructions - Pt was instruced to keep the wound clean, wash with antibacterial soap, use triple antibiotic ointment, call if redness, pustular drainage, or any other acute conerns. 12/19/2012 Appointment: Karma Bahena WPtel: [address] [place], [place] [phone] Other 12/19/2012 Patient Education: Patient Medication Summary Completed 12/19/2012 Patient Education: Patient Medication Summary Completed 12/17/2012 Visit Plan: Cellulitis - improved- monitor symptoms - need to check handon Monday morning. 12/14/2012 Appointment: Karma Bahena WPtel: [address] [place], [place] [phone] Follow up 12/14/2012 Patient Education: Patient Medication Summary Completed 12/14/2012 Visit Plan: Cellulitis - improved- monitor symptoms - need to check handon Monday morning. 12/12/2012 Appointment: Karma Bahena WPtel: [address] [place], [place] [phone] Work-in 12/12/2012 Patient Education: Patient Medication Summary [...] discharge. 12/10/2012 Appointment: Karma Bahena WPtel: 101[address] [facility] Other 12/10/2012 Patient Education: Patient Medication [...] uncontrolled. 10/30/2012 Appointment: Karma Bahena WPtel: [facility]9 [facility] Follow up 10/30/2012 Patient Education: Patient Medication Summary Completed 10/30/2012 Appointment: Laura Colin WPtel: [facility]4 [phone] Lab Draw 09/13/2012 Patient Education: [...] 3.5. 08/08/2012 Appointment: Karma Bahena WPtel: [facility]3 [facility] Other 08/08/2012 Patient Education: Patient Medication [...] regimen. 07/11/2012 Appointment: Karma Bahena WPtel: [phone] swelling, leg edema Other 07/11/2012 Patient Education: [...] vaginally. 05/08/2012 Appointment: Karma Bahena WPtel: [facility] [place] Follow up 05/08/2012 Patient Education: Patient [...] hospitalization. 04/18/2012 Appointment: Karma Bahena WPtel: [facility] Follow up 04/18/2012 Patient Education: Patient Medication Summary Completed 04/18/2012 Patient Education: High Blood Pressure: Essential Hypertension Completed 04/18/2012 Appointment: Karma Bahena WPtel: [facility] [place] Follow up 04/09/2012 Appointment: Karma Bahena WPtel: [phone] [place] Lab Draw 04/04/2012 Appointment: Laura [facility]Ptel: [phone] [place] Lab Draw 03/19/2012 Visit Plan: Abdominal [...] Hypertension Completed 03/13/2012 Appointment: Karma Bahena WPtel: [phone] [place] Lab Draw 03/08/2012 Patient Education: Patient [...] rehab. 02/20/2012 Appointment: Karma Bahena WPtel: [facility] [place] Other 02/20/2012 Patient Education: Patient Medication [...] becoming uncontrolled. 02/13/2012 Appointment: Laura Colin WPtel: [phone] [place] Other 02/13/2012 Patient Education: Patient Medication Summary Completed 02/13/2012 Appointment: Karma Bahena WPtel: [facility] [place] Lab Draw 02/07/2012 Visit Plan: Atrial [...] medication. 02/01/2012 Appointment: Karma Bahena WPtel: [facility] Other 02/01/2012 Patient Education: Patient Medication Summary Completed 02/01/2012 Patient Education: High Blood Pressure: Essential Hypertension Completed 02/01/2012 Appointment: Karma Bahena WPtel: [facility] Lab Draw 01/17/2012 Visit Plan: Atrial Fibrillation [...] home. 2012 Appointment: Karma Bahena WPtel: 1015 [facility] Other 2012 Patient Education: Patient Medication Summary Completed 2012 Patient Education: High Blood Pressure: Essential Hypertension Completed 2012 Appointment: Karma Bahena WPtel: 101[address] [facility] Follow up 12/20/2011 Visit Plan: Dicyclomine [...] go to the emergency room. 12/01/2011 Appointment: Migdalia Bahenay WPtel: 101[address] [facility] Other 12/01/2011 Patient Education: Patient [...] resolves. 11/23/2011 Appointment: Laura Colin WPtel: 1015 [phone] [place] [address] Other 11/23/2011 Patient Education: Patient Medication Summary Completed 11/23/2011 Patient Education: High Blood Pressure: Essential Hypertension Completed 11/23/2011 Visit Plan: Cerumen Impaction - The impacted cerumen was removed with the use of either ear currette alone or in combination with ear curette and water pick. The patient tolerated the procedure without incident and had improvement in hearing 10/17/2011 Appointment: Laura Colin WPtel: [address] [phone] Other 10/17/2011 Patient Education: Patient Medication [...] irrigation. 10/03/2011 Appointment: Karma Bahena WPtel: 101[address] [facility] [place] Other 10/03/2011 Patient Education: Patient [...] is evidence. 08/08/2011 Appointment: Karma Bahena WPtel: [address] [place] [address] Other 08/08/2011 Patient Education: Patient Medication Summary Completed 08/08/2011 Patient Education: High Blood Pressure: Essential Hypertension Completed 08/08/2011 Visit Plan: Muscle cramps - the cramps are a little better, continue with the Diltiazem and it is okay to use the over the counter supplement with quinine - but use it sparingly. For the rash, use the prescripti on the yarder operator prescribed for the itching , call if the rash is not improved. Torticollis - continue with physical therapy, call if the neck muscles do not continue to show improvement. 05/09/2011 Appointment: Karma Bahena WPtel: [address] [place] [address] Other 05/09/2011 Patient Education: Patient Medication Summary [...] water aerobics. 03/29/2011 Appointment: Karma Bahena WPtel: [address] [place], [place] [phone] Other 03/29/2011 Patient Education: Patient Medication Summary Completed 03/29/2011 Appointment: Karma Bahena WPtel: [address] [place] [address] Other 03/17/2011 Visit Plan: UTI - UA negative. Urge incontinence- restart on the vesicare- at 5 mg. Continue to avoid caffinated foods/fluids. Peripheral Neuropathy - per car wash manager report - Continue with the metanex. Loss of weight - WEIGHT CHECK IN 2 WKS. Palpitations- likely stress induced. If the symptoms worsen, call the office. 03/15/2011 Appointment: Josef Karma WPtel: [facility] Follow up 03/15/2011 Patient Education: Patient Medication [...] heart rate. Osteoarthritis - send pt to [facility] physical therapy for gereral osteoarhtritis program for [...] For the rash, use the prescription the yarder operator prescribed for the itching , call if the rash is not improved. Torticollis - continue with physical therapy, call if the neck muscles do not continue to show improvement. . APL-xfnnp-xke zpack-call if symptoms do not resolve or [...] therefore, would not change the medication. . UTI - UA negative. Urge incontinence- restart on the vesicare- at 5 mg. Continue to avoid caffinated foods/fluids. Peripheral Neuropathy - per car wash manager report - Continue with the metanex. Loss [...] patient stabilized during the removal process. . Atrial Fibrillation - pt on chronic [...] in blood pressure readings at home. . Cerumen Impaction - The impacted cerumen was removed with the use of either ear currette alone or in combination with ear curette and water pick. The patient tolerated the procedure without incident and had improvement in hearing . Gout Attack - Pt complains of [...] spray in the nasal steroid allergy spray. continue with carafate - use as much [...] use of bactroban - monitor symptoms. . Hypertension - well controlled - [...]
[2018-12-10 21:43] LABS: FREE T4 (FREE THYROXINE) 1.21 NG/DL (0.70-1.48)
[2018-12-10] MEDS ORDERED: LOPERAMIDE 2 MG (IMODIUM) TABLET PO PRN (21:45)
--- OUTSIDE RECORDS SUMMARY | 2018-12-10 21:50 | XMS REPORT | CCD ---
Author Author Laura Colin Organization Karma Bahena MD, [facility] Address [address] [place] [address] Phone Care Team Providers Care Stationary Engineer Apprentice Name Role Phone Karma Bahena PP Unavailable CCM Unavailable Summary Purpose Interface Exchange Insurance Providers Payer name Policy type / Coverage type Covered green party ID Effective Begin Date Effective End Date WPS Medicare Part B Medicare Part B [id number] 2018 Unknown AARP Medicare Part B [id number] 2018 Unknown Family history Sister Diagnosis Age [...] Unknown House 03/15/[address]: 523448422 Never smoker 03/15/2011 Has the patient ever used illegal drugs? Unknown Has never used illegal drugs 03/15/2011 Allergies, Adverse Reactions, Alerts Substance Reaction Codes Entered Date Inactivated Date Status BACTINE RxNorm: 423357 03/04/2011 No Inactive Date Active MICONAZOLE RxNorm: 6932 03/04/2011 No Inactive Date Active NEOSPORIN RxNorm: 539392 03/04/2011 No Inactive Date Active NEOMYCIN RxNorm: 7299 03/04/2011 No Inactive Date Active CORTISPORIN RxNorm: 22880 03/04/2011 No Inactive Date Active bactrim RxNorm: 437097 03/13/2012 No Inactive Date Active AUGMENTIN diarrhea RxNorm: 918014 2016 No Inactive Date Active METRONIDAZOLE Unknown 03/04/2011 No Inactive Date Active NYSTATIN Unknown 03/04/2011 No Inactive Date Active PNEUMOCOCCAL VACCINE Unknown 03/04/2011 No Inactive Date Active Past Medical History Illness Codes Condition Status Onset Date Resolved Date Atrophy of thyroid (acquired) ICD-9: 244.8 ICD-10: E03.4 Active 11/02/2016 Unknown Essential (primary) hypertension ICD-9: 401.9 ICD-10: I10 Active 12/25/2013 Unknown Other long winder tender (current) drug therapy ICD-9: V58.83 ICD-10: Z79.899 [...] ICD-9: 401.9 ICD-10: I10 12/25/2013 Active Other correction (current) drug therapy ICD-9: V58.83 [...] Date Stop Date Status Fill Instructions levothyroxine 50 mcg tablet RxNorm: 047886 1 TABLET(S) PO DAILY 04/30/2018 07/28/2018 Active Patient requests 90 days supply spironolactone 25 mg tablet RxNorm: 558807 1 Tablet(s) PO daily 03/14/2018 03/08/2019 Active levothyroxine 50 mcg tablet RxNorm: 587760 1 Tablet(s) PO daily 02/01/2018 04/29/2018 Inactive Eliquis 2.5 mg tablet RxNorm: 1083884 1 Tablet(s) PO BID 01/31/2018 02/20/2018 Inactive levothyroxine 50 mcg tablet RxNorm: 405634 1 Tablet(s) PO daily 01/31/2018 01/31/2018 Inactive Eliquis 2.5 mg tablet RxNorm: 2824270 TAKE 1 TABLET BY MOUTH TWICE DAILY 01/23/2018 07/21/2018 Active metoprolol succinate ER 50 mg tablet,extended release 24 hr RxNorm: 059288 1 TABLET(S) PO DAILY 01/23/2018 01/30/2018 Inactive metoprolol succinate ER 50 mg tablet,extended release 24 hr RxNorm: 307883 1.5 Tablet(s) daily 01/22/2018 10/18/2018 Active lisinopril 20 mg tablet RxNorm: 052499 1/2 Tablet(s) daily 01/19/2018 01/21/2018 Inactive Patient requests 90 days supply Singulair 10 mg tablet RxNorm: 855287 TAKE 1 TABLET BY MOUTH AT BEDTIME 01/18/2018 04/17/2018 Inactive Patient requests 90 days supply Singulair 10 mg tablet RxNorm: 954731 Tablet(s) PO 01/17/2018 01/17/2018 Inactive digoxin 125 mcg tablet RxNorm: 147321 1 TABLET(S) PO DAILY 01/03/2018 12/28/2018 Active Symbicort 160 mcg-4.5 mcg/actuation HFA aerosol inhaler RxNorm: 3658925 2 Puff(s) INH BID 12/14/2017 04/12/2018 Inactive please dispense an aerochamber for patient as well as her symbicort cyclobenzaprine 5 mg tablet RxNorm: 603809 Tablet(s) 1/2 TABLET(S) PO Q8 NEEDED MUSCLE SPASMS 12/14/2017 No Stop Date Active pantoprazole 40 mg tablet,delayed release RxNorm: 106328 1 Tablet(s) PO daily 12/14/2017 12/08/2018 Active ProAir RespiClick 90 mcg/actuation breath activated RxNorm: 6607675 1-2 INH QID as needed shortness of breath 12/14/2017 07/11/2018 Active cyclobenzaprine 5 mg tablet RxNorm: 928644 1/2 TABLET(S) PO Q8 NEEDED MUSCLE SPASMS 12/08/2017 12/13/2017 Inactive betamethasone dipropionate 0.05 % topical ointment RxNorm: 323003 1 Application TOP TID use topically on the rectal tissue three times daily x 1 week then as needed 11/13/2017 No Stop Date Active Premarin 0.625 mg/gram vaginal cream RxNorm: 175664 1/2 GRAM(S) VAG TIW 11/13/2017 12/12/2017 Inactive Vesicare 10 mg tablet RxNorm: 129852 1 Tablet(s) PO every other day 10/17/2017 04/14/2018 Inactive cyclobenzaprine 5 mg tablet RxNorm: 652896 1/2 TABLET(S) PO Q8 NEEDED MUSCLE SPASMS 10/17/2017 12/07/2017 Inactive lisinopril 20 mg tablet RxNorm: 785235 1 TABLET(S) PO DAILY 10/02/2017 01/18/2018 Inactive Patient requests 90 days supply levothyroxine 75 mcg tablet RxNorm: 932276 1 TABLET(S) PO DAILY 09/25/2017 01/30/2018 Inactive spironolactone 25 mg tablet RxNorm: 580631 1 TABLET(S) PO DAILY 08/16/2017 03/13/2018 Inactive cyclobenzaprine 5 mg tablet RxNorm: 117345 1/2 TABLET(S) PO Q8 NEEDED MUSCLE SPASMS 08/16/2017 10/16/2017 Inactive Eliquis 2.5 mg tablet RxNorm: 3226600 TAKE 1 TABLET BY MOUTH TWICE DAILY 07/26/2017 01/21/2018 Inactive cyclobenzaprine 5 mg tablet RxNorm: 208519 1/2 Tablet(s) PO Q8 as needed muscle spasms 06/19/2017 08/15/2017 Inactive lisinopril 20 mg tablet RxNorm: 411181 1 TABLET(S) PO DAILY 06/12/2017 10/01/2017 Inactive metoprolol succinate ER 50 mg tablet,extended release 24 hr RxNorm: 889482 1 TABLET(S) PO DAILY 04/07/2017 01/01/2018 Inactive spironolactone 25 mg tablet RxNorm: 093046 1 Tablet(s) PO daily 03/27/2017 03/13/2018 Inactive acyclovir 800 mg tablet RxNorm: 457774 1 Tablet(s) PO TID 03/21/2017 03/30/2017 Inactive acyclovir 800 mg tablet RxNorm: 467374 1 Tablet(s) PO TID 03/21/2017 03/20/2017 Inactive levothyroxine 75 mcg tablet RxNorm: 949586 1 Tablet(s) PO daily 03/16/2017 09/11/2017 Inactive spironolactone 25 mg tablet RxNorm: 208283 1 TABLET(S) PO DAILY 02/09/2017 03/26/2017 Inactive lisinopril 20 mg tablet RxNorm: 306751 1 TABLET(S) PO DAILY 01/02/2017 05/31/2017 Inactive Zithromax Z-Claudio 250 mg tablet RxNorm: 022574 1 Tablet(s) PO UD 11/29/2016 12/03/2016 Inactive ZPACK Keflex 500 mg capsule RxNorm: 529039 1 Capsule(s) PO TID 11/23/2016 12/02/2016 Inactive guaifenesin 400 mg tablet RxNorm: 440709 1 Tablet(s) PO Q6 as needed 11/23/2016 11/27/2016 Inactive omeprazole 40 mg capsule,delayed release RxNorm: 124010 1 Capsule(s) PO QPM 11/02/2016 12/13/2017 Inactive digoxin 125 mcg tablet RxNorm: 465373 1 TABLET(S) PO DAILY 10/27/2016 07/23/2017 Inactive cyclobenzaprine 5 mg tablet RxNorm: 260597 1/2 Tablet(s) PO Q8 PRN 10/25/2016 06/18/2017 Inactive prn muscle spasms Augmentin 500 mg-125 mg tablet RxNorm: 518908 1 Tablet(s) PO BID 10/24/2016 11/02/2016 Inactive Lasix 20 mg tablet RxNorm: 057900 Tablet(s) PRN one to two times a week if needed 07/27/2016 No Stop Date Active Patient requests 90 days supply spironolactone 25 mg tablet RxNorm: 073859 1 Tablet(s) PO daily 07/27/2016 02/08/2017 Inactive Diflucan 150 mg tablet RxNorm: 688476 1 Tablet(s) PO daily 07/27/2016 08/02/2016 Inactive lisinopril 20 mg tablet RxNorm: 842112 1 Tablet(s) PO daily 07/12/2016 01/01/2017 Inactive Lasix 20 mg tablet RxNorm: 768625 1 TABLET(S) PO EVERY OTHER DAY EVERY OTHER DAY 06/10/2016 07/26/2016 Inactive Patient requests 90 days supply potassium chloride ER 10 mEq capsule,extended release RxNorm: 142595 1 CAPSULE(S) PO EVERY OTHER DAY 06/10/2016 07/26/2016 Inactive Patient requests 90 days supply potassium chloride ER 10 mEq capsule,extended release RxNorm: 468068 1 Capsule(s) PO every other day 06/09/2016 06/09/2016 Inactive Lasix 20 mg tablet RxNorm: 800941 1 Tablet(s) PO every other day every other day 06/09/2016 06/09/2016 Inactive levothyroxine 88 mcg tablet RxNorm: 616781 1 Tablet(s) PO daily 05/11/2016 11/06/2016 Inactive Premarin 0.625 mg/gram vaginal cream RxNorm: 118553 1/2 Gram(s) VAG TIW 03/24/2016 03/18/2017 Inactive metoprolol succinate ER 50 mg tablet,extended release 24 hr RxNorm: 073653 1 Tablet(s) PO daily 03/24/2016 03/18/2017 Inactive pantoprazole 40 mg tablet,delayed release RxNorm: 408458 1 Tablet(s) PO daily 02/08/2016 11/01/2016 Inactive betamethasone dipropionate 0.05 % topical ointment RxNorm: 047890 1 Application TOP TID use topically on the rectal tissue three times daily x 1 week then as needed 02/02/2016 11/12/2017 Inactive pantoprazole 40 mg tablet,delayed release RxNorm: 357348 1 Tablet(s) PO daily 2016 02/07/2016 Inactive alprazolam 0.25 mg tablet RxNorm: 327576 1 Tablet(s) PO Q6 as needed 12/04/2015 No Stop Date Active Vesicare 10 mg tablet RxNorm: 069991 1 Tablet(s) PO every other day 11/03/2015 10/16/2017 Inactive alprazolam 0.25 mg tablet RxNorm: 186969 1 Tablet(s) PO Q6 as needed 11/03/2015 12/03/2015 Inactive Premarin 0.625 mg/gram vaginal cream RxNorm: 331907 1/2 Gram(s) VAG TIW 11/03/2015 03/23/2016 Inactive levothyroxine 88 mcg tablet RxNorm: 540443 1 Tablet(s) PO daily 11/03/2015 05/10/2016 Inactive Diflucan 150 mg tablet RxNorm: 349268 1 Tablet(s) PO daily 10/19/2015 10/25/2015 Inactive cetirizine 10 mg chewable tablet RxNorm: 7950305 1 Tablet(s) PO daily 10/13/2015 11/11/2015 Inactive cetirizine 10 mg capsule RxNorm: 8774290 1 Capsule(s) PO daily 10/13/2015 11/11/2015 Inactive Vesicare 10 mg tablet RxNorm: 531424 1/2 TABLET(S) PO BID 09/21/2015 11/02/2015 Inactive betamethasone dipropionate 0.05 % topical ointment RxNorm: 719050 1 Application TOP TID use topically on the rectal tissue three times daily x 1 week then as needed 09/15/2015 02/01/2016 Inactive lisinopril 20 mg tablet RxNorm: 010081 1 Tablet(s) PO daily 09/01/2015 07/11/2016 Inactive digoxin 125 mcg tablet RxNorm: 195498 1 Tablet(s) PO daily 09/01/2015 08/25/2016 Inactive Augmentin 500 mg-125 mg tablet RxNorm: 786790 1 Tablet(s) PO TID 05/26/2015 06/04/2015 Inactive Pyridium 200 mg tablet RxNorm: 2063013 1 Tablet(s) PO TID 05/26/2015 05/27/2015 Inactive levothyroxine 88 mcg tablet RxNorm: 990452 1 Tablet(s) PO daily except 1/2 pill on monday and 05/07/2015 11/02/2015 Inactive digoxin 125 mcg tablet RxNorm: 483409 1 Tablet(s) PO daily 05/07/2015 08/31/2015 Inactive lisinopril 20 mg tablet RxNorm: 735606 1 TABLET(S) PO BID 04/13/2015 09/01/2015 Inactive Coumadin 1 mg tablet RxNorm: 571741 1 TABLET(S) PO DAILY 03/31/2015 08/31/2015 Inactive Coumadin 2 mg tablet RxNorm: 426247 4MG IN AM AND 1MG AT NIGHT TABLET(S) PO DAILY DIRECTED. 03/31/2015 08/31/2015 Inactive levothyroxine 88 mcg tablet RxNorm: 470012 1 Tablet(s) PO daily 03/23/2015 05/06/2015 Inactive alprazolam 0.25 mg tablet RxNorm: 183362 Tablet(s) PO 03/23/2015 04/06/2015 Inactive levothyroxine 88 mcg tablet RxNorm: 155887 1 Tablet(s) PO daily 01/28/2015 03/22/2015 Inactive levothyroxine 88 mcg tablet RxNorm: 105118 1 Tablet(s) PO daily 01/28/2015 01/27/2015 Inactive diltiazem ER 120 mg capsule,extended release RxNorm: 424988 1 Capsule(s) PO BID patient would like 4 months at a time 01/06/2015 09/28/2015 Inactive digoxin 125 mcg tablet RxNorm: 288550 Tablet(s) 1 TABLET(S) PO DAILY 12/24/2014 12/23/2014 Inactive pt will be paying [employer]oma[employer] (On $4 list)Patient requests 90 days supply digoxin 125 mcg tablet RxNorm: 036511 Tablet(s) 1 TABLET(S) PO DAILY M W F Sat and 2 tabs on T TH 12/24/2014 05/06/2015 Inactive pt will be paying [employer]oma[employer] (On $4 list)Patient requests 90 days supply dicyclomine 20 mg tablet RxNorm: 417916 1 Tablet(s) PO daily 11/17/2014 08/31/2015 Inactive one ac dinner and up to tid prn levothyroxine 88 mcg tablet RxNorm: 515414 1 Tablet(s) PO daily 11/03/2014 01/27/2015 Inactive Premarin 0.625 mg/gram vaginal cream RxNorm: 226819 1 APPLICATION VAG 1 APPLICATOR PER VAGINA 3 TIMES PER WEEK 11/03/2014 07/30/2015 Inactive digoxin 125 mcg tablet RxNorm: 620438 1 TABLET(S) PO DAILY 09/29/2014 12/23/2014 Inactive pt will be paying [employer]oma[employer] (On $4 list)Patient requests 90 days supply digoxin 125 mcg tablet RxNorm: 174107 1 TABLET(S) PO DAILY 07/11/2014 04/06/2015 Inactive Vesicare 10 mg tablet RxNorm: 887324 1/2 Tablet(s) PO BID 05/20/2014 05/14/2015 Inactive Levaquin 500 mg tablet RxNorm: 652767 1 Tablet(s) PO daily 05/06/2014 05/08/2014 Inactive take probiotic BID while on ABT Levaquin 500 mg tablet RxNorm: 376644 1 Tablet(s) PO daily 05/02/2014 05/05/2014 Inactive take probiotic BID while on ABT diltiazem ER 120 mg capsule,extended release RxNorm: 827045 1 Capsule(s) PO BID patient would like 4 months at a time 04/29/2014 2015 Inactive Vesicare 10 mg tablet RxNorm: 568964 1/2 Tablet(s) PO BID 04/29/2014 05/19/2014 Inactive lisinopril 20 mg tablet RxNorm: 229499 1 Tablet(s) PO BID 03/20/2014 03/14/2015 Inactive diltiazem 90 mg tablet RxNorm: 566503 1/2 TABLET(S) PO QPM 03/04/2014 04/28/2014 Inactive also 180 q am diltiazem ER 120 mg capsule,extended release RxNorm: 994383 1 Capsule(s) PO daily patient would like 4 months at a time 01/29/2014 04/28/2014 Inactive Vesicare 10 mg tablet RxNorm: 798931 1 Tablet(s) PO QHS 01/14/2014 04/28/2014 Inactive Coumadin 2 mg tablet RxNorm: 756299 4mg in AM and 1mg at night Tablet(s) PO daily as directed. 12/25/2013 03/30/2015 Inactive Metanx 3 mg-35 mg-2 mg tablet RxNorm: 1 Tablet(s) PO daily 12/25/2013 11/02/2015 Inactive digoxin 125 mcg tablet RxNorm: 732021 1 Tablet(s) PO daily 12/25/2013 09/28/2014 Inactive pt will be paying [employer]oma[employer] (On $4 list) Coumadin 2 mg tablet RxNorm: 526110 7.5 wed 5mg other Tablet(s) PO as directed. 12/03/2013 12/24/2013 Inactive omeprazole 20 mg tablet,delayed release RxNorm: 153957 1 Tablet(s) PO BID 11/27/2013 04/28/2014 Inactive Coumadin 2 mg tablet RxNorm: 095278 5 mg daily Tablet(s) PO as directed. 11/26/2013 12/02/2013 Inactive 5 mg daily Xanax 0.25 mg tablet RxNorm: 756114 1 Tablet(s) PO Q6 PRN 11/11/2013 12/25/2013 Inactive alprazolam 0.25 mg tablet RxNorm: 668246 tablet oral 11/11/2013 03/22/2015 Inactive sucralfate 1 gram tablet RxNorm: 718508 1 Tablet(s) PO AC & HS 11/04/2013 11/03/2013 Inactive sucralfate 1 gram tablet RxNorm: 826407 1 Tablet(s) PO AC & HS 11/04/2013 01/02/2014 Inactive Synthroid 100 mcg tablet RxNorm: 302275 1 Tablet(s) PO daily 10/31/2013 10/25/2014 Inactive Synthroid 100 mcg tablet RxNorm: 122836 1 Tablet(s) PO daily 09/30/2013 10/29/2013 Inactive Vesicare 10 mg tablet RxNorm: 255202 1 Tablet(s) PO QHS 09/30/2013 01/13/2014 Inactive Lotemax 0.5 % eye ointment RxNorm: 2460655 ointment opht 09/06/2013 12/10/2013 Inactive levothyroxine 100 mcg tablet RxNorm: 753120 tablet oral 09/05/2013 11/02/2014 Inactive Synthroid 100 mcg tablet RxNorm: 484791 1 Tablet(s) PO daily 09/05/2013 09/29/2013 Inactive Prolia 60 mg/mL Sub-Q Syringe RxNorm: 348526 1 Milliliter(s) SQ 06/25/2013 11/02/2015 Inactive dicyclomine 20 mg tablet RxNorm: 812471 1 Tablet(s) PO daily 06/24/2013 06/18/2014 Inactive one ac dinner and up to tid prn omeprazole 20 mg tablet,delayed release RxNorm: 109552 1 Tablet(s) PO BID 06/24/2013 11/26/2013 Inactive Cipro 500 mg tablet RxNorm: 353340 1 Tablet(s) PO BID 06/20/2013 06/26/2013 Inactive diltiazem ER 120 mg capsule,extended release RxNorm: 724767 1 Capsule(s) PO daily patient would like 4 months at a time 06/03/2013 01/28/2014 Inactive Coumadin 2 mg tablet RxNorm: 020149 as directed Tablet(s) PO as directed. 05/29/2013 11/25/2013 Inactive 5 mg daily Synthroid 88 mcg tablet RxNorm: 526797 1 Tablet(s) PO daily 04/24/2013 04/23/2013 Inactive Synthroid 88 mcg tablet RxNorm: 027902 1 Tablet(s) PO daily 04/24/2013 07/28/2013 Inactive Premarin 0.625 mg/gram vaginal cream RxNorm: 274215 1 Application VAG 1 applicator per vagina 3 times per week 04/23/2013 04/17/2014 Inactive Influenza Virus Vaccine 0.5 mL RxNorm: IM 04/23/2013 04/23/2013 Inactive digoxin 125 mcg tablet RxNorm: 261685 1 Tablet(s) PO daily 02/20/2013 04/20/2013 Inactive pt will be paying [employer]oma[employer] (On $4 list) Digox 125 mcg tablet RxNorm: 3192586 tablet oral 02/13/2013 03/20/2014 Inactive digoxin 125 mcg tablet RxNorm: 905371 1 Tablet(s) PO daily 02/13/2013 02/19/2013 Inactive diltiazem 90 mg tablet RxNorm: 938198 1/2 Tablet(s) PO QPM 02/13/2013 02/07/2014 Inactive also 180 q am Levoxyl 75 mcg tablet RxNorm: 865160 1 Tablet(s) PO 01/16/2013 04/23/2013 Inactive Coumadin 2 mg tablet RxNorm: 183850 6mg daily except 3mg on wed and fri Tablet(s) PO 01/15/2013 05/28/2013 Inactive 5 mg daily Coumadin 2 mg tablet RxNorm: 639362 6mg daily Tablet(s) PO 12/21/2012 01/14/2013 Inactive 5 mg daily silver sulfadiazine 1 % Topical Cream RxNorm: 794935 TOP apply to affected area with each dressing change 12/19/2012 12/25/2013 Inactive cephalexin 500 mg tablet RxNorm: 188045 1 Tablet(s) PO TID 12/11/2012 12/17/2012 Inactive digoxin 125 mcg tablet RxNorm: 2339570 1 Tablet(s) PO daily 10/30/2012 02/12/2013 Inactive digoxin 125 mcg tablet RxNorm: 0601820 2 tab tue thurs one other days Tablet(s) PO daily 10/23/2012 10/29/2012 Inactive lisinopril 10 mg tablet RxNorm: 688136 1 Tablet(s) PO daily 10/17/2012 08/14/2013 Inactive Cipro 500 mg tablet RxNorm: 676087 1 Tablet(s) PO BID 09/13/2012 09/19/2012 Inactive Coumadin 1 mg tablet RxNorm: 432811 1 Tablet(s) PO daily 09/03/2012 09/02/2012 Inactive Coumadin 1 mg tablet RxNorm: 782971 1 Tablet(s) PO daily 09/03/2012 12/21/2012 Inactive Coumadin 2 mg tablet RxNorm: 425972 Tablet(s) PO 07/25/2012 12/20/2012 Inactive 5 mg daily digoxin 125 mcg tablet RxNorm: 2018180 1 Tablet(s) PO daily 06/28/2012 10/22/2012 Inactive Coumadin 2 mg tablet RxNorm: 837570 Tablet(s) PO 06/27/2012 07/24/2012 Inactive 5mg daily except 4mg on monday Coumadin 2 mg tablet RxNorm: 447666 Tablet(s) PO 06/19/2012 06/26/2012 Inactive 5mg tue wed thur sat sun4mg mon(has 2mg and 1 mg tab) digoxin 125 mcg tablet RxNorm: 7767703 1 Tablet(s) PO daily 05/29/2012 06/27/2012 Inactive Coumadin 2 mg tablet RxNorm: 602602 Tablet(s) PO 05/15/2012 06/18/2012 Inactive 5mg tue thur sat sun4mg mon frid(has 2mg and 1 mg tab) Coumadin 2 mg tablet RxNorm: 616283 Tablet(s) PO 04/25/2012 05/14/2012 Inactive 5mg tue thru sat4mg mond sun(has 2mg and 1 mg tab) Metanx 3 mg-35 mg-2 mg tablet RxNorm: 1 Tablet(s) PO BID 04/18/2012 12/24/2013 Inactive dicyclomine 20 mg tablet RxNorm: 188909 1 Tablet(s) PO 04/18/2012 06/23/2013 Inactive one ac dinner and up to tid prn digoxin 125 mcg tablet RxNorm: 4063134 Tablet(s) PO daily except .25 on Tuesdays and 04/09/2012 05/28/2012 Inactive omeprazole 20 mg tablet,delayed release RxNorm: 629717 1 Tablet(s) PO BID 04/09/2012 04/03/2013 Inactive digoxin 125 mcg tablet RxNorm: 8062713 1 Tablet(s) PO UD daily except none on Tuesdays and 03/13/2012 04/08/2012 Inactive Premarin 0.625 mg/gram Vaginal Cream RxNorm: 327677 1 Application VAG 1 applicator per vagina 3 times per week 02/20/2012 02/13/2013 Inactive omeprazole 20 mg tablet,delayed release RxNorm: 557048 1 Tablet(s) PO BID 02/13/2012 04/08/2012 Inactive Vesicare 10 mg tablet RxNorm: 239517 1 Tablet(s) PO QHS 02/13/2012 02/06/2013 Inactive Diflucan 150 mg tablet RxNorm: 909195 1 Tablet(s) PO daily 02/13/2012 02/19/2012 Inactive omeprazole 20 mg tablet,delayed release RxNorm: 926015 1 Tablet(s) PO BID 01/06/2012 02/12/2012 Inactive Calcium 600 + D(3) 600 mg (1,500)-200 unit Tab RxNorm: 095786 2 Tablet(s) PO BID 01/06/2012 08/31/2015 Inactive diltiazem 90 mg tablet RxNorm: 471297 1/2 Tablet(s) PO QPM 12/26/2011 02/12/2013 Inactive also 180 q am diltiazem ER 180 mg Cap RxNorm: 723289 1 Capsule(s) PO QAM 12/26/2011 04/08/2012 Inactive 45mg q hs Flagyl 500 mg Tab RxNorm: 669291 1 Tablet(s) PO BID 12/14/2011 12/20/2011 Inactive dicyclomine 10 mg Cap RxNorm: 425890 1 Capsule(s) PO AC & HS 12/01/2011 12/25/2011 Inactive Levaquin 500 mg Tab RxNorm: 765156 1 Tablet(s) PO daily 11/23/2011 11/29/2011 Inactive Rocephin 500 mg Solution for Injection RxNorm: 912958 Inj 11/23/2011 11/23/2011 Inactive acyclovir 400 mg Tab RxNorm: 473114 1 Tablet(s) PO QID 11/10/2011 11/19/2011 Inactive acyclovir 400 mg Tab RxNorm: 778222 1 Tablet(s) PO QID 11/10/2011 11/09/2011 Inactive lisinopril 20 mg Tab RxNorm: 066823 1 Tablet(s) PO daily 10/03/2011 11/27/2011 Inactive lisinopril 20 mg Tab RxNorm: 479522 1 Tablet(s) PO daily 08/08/2011 10/02/2011 Inactive Reclast 5 mg/100 mL IV RxNorm: 803631 Milliliter(s) IV Yearly 06/08/2011 01/16/[address] Hansen manages Rocephin 500 mg Solution for Injection RxNorm: 143945 1 Milliliter(s) Inj 03/04/2011 08/08/2011 Inactive Ceftin 500 mg Tab RxNorm: 430373 1 Tablet(s) PO BID 03/04/2011 08/08/2011 Inactive Vitamin D3 1,000 unit tablet RxNorm: 488021 2 Tablet(s) PO daily No Start Date Active Carafate 100 mg/mL oral suspension RxNorm: 811962 2 Teaspoon(s) PO as needed with reflux symptoms No Start Date Active Stool Softener 100 mg tablet RxNorm: 7885631 2 Tablet(s) PO QHS No Start Date Active Beano tablet RxNorm: 2-3 Tablet(s) PO as needed No Start Date Active Probiotic Pearls 15 mg (1 billion cell) capsule,delayed release RxNorm: 1 Capsule(s) PO daily No Start Date Active Lipitor 10 mg tablet RxNorm: 182891 1 Tablet(s) PO daily No Start Date Active Miralax 17 gram oral powder packet RxNorm: 548550 1/2 packet PO QHS No Start Date Active multivitamin Tab RxNorm: 1 Tablet(s) PO daily No Start Date Active Tylenol Extra Strength 500 mg tablet RxNorm: 458469 2 Tablet(s) PO as needed No Start Date Active Combigan 0.2 %-0.5 % eye drops RxNorm: 977096 1 Drop(s) OPH BID No Start Date Active 1 drop twice daily left eye Lexapro 5 mg tablet RxNorm: 824029 1 Tablet(s) PO daily No Start Date Active Tatiana Allergy 180 mg tablet RxNorm: 847990 1 Tablet(s) PO daily No Start Date Active Lotemax 0.5 % eye drops,suspension RxNorm: 514550 1 Drop(s) OPH right eye BID No Start Date Active Levoxyl 50 mcg tablet RxNorm: 278142 1 Tablet(s) PO daily No Start Date 01/15/2013 Inactive lisinopril-hydrochlorothiazide 20 mg-25 mg Tab RxNorm: 596918 1 Tablet(s) PO daily No Start Date 08/07/2011 Inactive Metanx 3 mg-35 mg-2 mg tablet RxNorm: 1 Tablet(s) PO daily No Start Date 04/17/2012 Inactive diltiazem CD 120 mg capsule,extended release 24 hr RxNorm: 355308 1 Capsule(s) PO daily No Start Date 09/28/2015 Inactive lisinopril 20 mg tablet RxNorm: 116555 Tablet(s) PO No Start Date Active Lumigan 0.01 % Eye Drops RxNorm: 4532586 1 Drop(s) OPH daily Left eye No Start Date 12/10/2013 Inactive prednisolone acetate 1 % Eye Drops, Susp RxNorm: 2019408 1 Drop(s) OPH BID 1 drop right eye am and hs No Start Date 11/02/2015 Inactive Eliquis 5 mg tablet RxNorm: 4450648 1 Tablet(s) PO BID No Start Date 06/08/2016 Inactive potassium gluconate (bulk) Misc RxNorm: Miscellaneous No Start Date 12/25/2011 Inactive Calcium 600 + D(3) 600 mg (1,500)-200 unit Tab RxNorm: 844678 3 Tablet(s) PO daily No Start Date 2012 Inactive Zyrtec 10 mg tablet RxNorm: 9990918 1 Tablet(s) PO daily No Start Date 08/02/2016 Inactive Synthroid 100 mcg tablet RxNorm: 964620 1 Tablet(s) PO daily No Start Date 09/04/2013 Inactive metoprolol succinate ER 50 mg tablet,extended release 24 hr RxNorm: 132328 1 Tablet(s) PO daily No Start Date 03/23/2016 Inactive Metanx 3 mg-35 mg-2 mg tablet RxNorm: 1 Tablet(s) PO daily 2pm No Start Date 11/02/2015 Inactive Lexapro 5 mg tablet RxNorm: 570562 1 Tablet(s) PO daily No Start Date 08/18/2015 Inactive Iron (dried) oral RxNorm: 63962 oral No Start Date 11/02/2015 Inactive timolol 0.5 % Eye Drops RxNorm: 766464 1 Drop(s) OPH daily left eye No Start Date 12/18/2013 Inactive multivitamin Cap RxNorm: 1 Capsule(s) PO daily No Start Date 12/25/2011 Inactive dicyclomine 10 mg Cap RxNorm: 420795 2 Capsule(s) PO daily No Start Date 11/30/2011 Inactive silver sulfadiazine 1 % Topical Cream RxNorm: 149958 TOP apply to affected area with each dressing change No Start Date 12/18/2012 Inactive magnesium oxide 400 mg Tab RxNorm: 349329 1 Tablet(s) PO daily No Start Date 11/02/2015 Inactive Pradaxa 75 mg Cap RxNorm: 7871149 1 Capsule(s) PO BID No Start Date 04/09/2012 Inactive magnesium oxide 400 mg Tab RxNorm: 526997 2 Tablet(s) PO daily magnesium plus zinc No Start Date 12/25/2011 Inactive biotin 1000 mg RxNorm: 1 PO daily No Start Date 12/25/2011 Inactive Synthroid 50 mcg Tab RxNorm: 005178 Tablet(s) PO No Start Date 12/25/2011 Inactive diltiazem ER 180 mg Cap RxNorm: 229477 1 Capsule(s) PO daily No Start Date 12/25/2011 Inactive 1 D 3 1000 iu Oral RxNorm: Oral No Start Date 12/25/2011 Inactive Coumadin 2 mg tablet RxNorm: 714620 Tablet(s) PO No Start Date 04/24/2012 Inactive 5mg tue [id number] mon sat sun(has 2mg and 1 mg tab) dicyclomine 20 mg tablet RxNorm: 062319 Tablet(s) PO No Start Date 04/17/2012 Inactive one ac dinner and up to tid prn lactobacillus acidophilus tablet RxNorm: 1 Tablet(s) PO daily No Start Date 11/03/2015 Inactive Eliquis 2.5 mg tablet RxNorm: 7531706 1 Tablet(s) PO BID No Start Date 07/25/2017 Inactive Levoxyl 75 mcg Tab RxNorm: 180472 1 Tablet(s) PO daily No Start Date 10/02/2011 Inactive digoxin 125 mcg tablet RxNorm: 8089369 1 Tablet(s) PO daily No Start Date 03/12/2012 Inactive pantoprazole 40 mg tablet,delayed release RxNorm: 046560 1 Tablet(s) PO BID No Start Date 01/04/2016 Inactive cyclobenzaprine 5 mg tablet RxNorm: 365923 1/2 Tablet(s) PO Q8 PRN No Start Date 10/24/2016 Inactive diltiazem 90 mg Tab RxNorm: 750587 1/2 Tablet(s) PO QPM No Start Date 12/25/2011 Inactive Mirapex 1 mg Tab RxNorm: 945099 1 Tablet(s) PO QHS No Start Date 12/25/2011 Inactive Xanax 0.25 mg tablet RxNorm: 595712 1 Tablet(s) PO Q6 PRN No Start Date 11/10/2013 Inactive Premarin 0.625 mg/gram Vaginal Cream RxNorm: 240425 1 Application VAG 1 applicator per vagina 3 times per week No Start Date 02/19/2012 Inactive Synthroid 75 mcg Tab RxNorm: 778953 1 Tablet(s) PO daily No Start Date 04/17/2012 Inactive lisinopril 40 mg Tab RxNorm: 461717 1 Tablet(s) PO daily No Start Date 12/25/2011 Inactive Glucosamine Chondroitin Complex Advanced [id number]-1.65mg Tab RxNorm: 2 Tablet(s) PO daily No Start Date 08/08/2011 Inactive famotidine 20 mg tablet RxNorm: 485073 1 Tablet(s) PO QAM No Start Date 11/02/2015 Inactive cranberry extract 250 mg Tab RxNorm: 553006 2 Tablet(s) PO daily No Start Date 08/08/2011 Inactive Vitamin D3 1,000 unit capsule RxNorm: 527268 1 Capsule(s) PO daily No Start Date 08/31/2015 Inactive aspirin 81 mg Tab, Delayed Release RxNorm: 380209 1 Tablet(s) PO daily No Start Date 08/31/2015 Inactive diltiazem ER 120 mg capsule,extended release RxNorm: 509066 1 Capsule(s) PO daily patient would like 4 months at a time No Start Date 06/02/2013 Inactive omeprazole 20 mg Tab, Delayed Release RxNorm: 330070 2 Tablet(s) PO QHS No Start Date 2012 Inactive lisinopril 10 mg tablet RxNorm: 681339 1/2 Tablet(s) PO daily No Start Date 10/16/2012 Inactive Pred Forte 1 % Eye Drops RxNorm: 075373 1 Drop(s) OPH daily right eye No Start Date 12/25/2013 Inactive calcium carbonate 400 mg Chewable Tab RxNorm: 069315 1 Tablet(s) PO daily No Start Date 08/08/2011 Inactive Vesicare 10 mg tablet RxNorm: 058777 1 Tablet(s) PO QHS No Start Date 02/12/2012 Inactive Symbicort 160 mcg-4.5 mcg/actuation HFA aerosol inhaler RxNorm: 0902267 2 Puff(s) INH BID No Start Date 12/13/2017 Inactive potassium 99 mg tablet RxNorm: 1 Tablet(s) PO QPM No Start Date 12/25/2013 Inactive timolol 0.25 % Eye Drops RxNorm: 253582 1 Drop(s) OPH daily Left eye No Start Date 04/17/2012 Inactive diltiazem ER 90 mg capsule,extended release 12 hr RxNorm: 525931 1/2 Capsule(s) PO QPM No Start Date 04/28/2014 Inactive cyclobenzaprine 5 mg Tab RxNorm: 996617 1/2-1 Tablet(s) PO Q8 PRN No Start Date 12/25/2011 Inactive 1/2 - 1 tab q 8hrs prn muscle spasms Medication Administered Medication Codes Instructions Start Date Status Influenza Virus Vaccine 0.5 mL RxNorm: 04/23/2013 No longer Active Rocephin 500 mg Solution for Injection RxNorm: 901344 11/23/2011 No longer Active Immunizations Vaccine Codes [...] ICD-10: I10 ICD-9: 401.9 01/31/2018 Other long winder tender (current) drug therapy ICD-10: Z79.899 ICD-9: V58.83 [...] ICD-10: K64.0 ICD-9: 455.6 03/24/2016 Other long winder tender (current) drug therapy ICD-10: Z79.899 ICD-9: V58.69 [...] NG/ML 05/08/2018 Tsh Ord6 TSH (3rd IS) 1.07 uIU/mL 01/31/2018 Free T4 Zzp984 FREE T4 1.63 ng/dL 01/31/2018 Digoxin Ord9 DIGOXIN 0.8 NG/ML 01/31/2018 C RAP A SC [id number] Strep A Negative 11/21/2016 Thyroid Antibodies 377849 THYROGLOBULIN ANTIBODY . 11/04/2016 Thyroid Antibodies 573417 THYROGLOBULIN ANTIBODY 919 IU/mL 11/04/2016 Thyroid Antibodies 372226 THYROID PEROXIDASE (TPO) AB . 11/04/2016 Thyroid Antibodies 305840 THYROID PEROXIDASE (TPO) AB 10 IU/mL 11/04/2016 Total T3 Ord42 TT3 0.64 ng/ml 11/03/2016 Free T4 Bew341 FREE T4 1.39 ng/dL 11/02/2016 Tsh Ord6 [...] Differential Ord2 RDW 13.8 % 05/26/2015 Pt Kxe1718 PT 25.0 seconds 05/26/2015 Pt Pnd1856 INR 2.4 05/26/2015 Pt Gqt9955 Low Intensity - 1.5-2.0 05/26/2015 Pt Nqk5936 Mod intensity - 2.0-3.0 05/26/2015 Pt Tcg0635 Hi intensity - 3.0-4.0 05/26/2015 Uric Acid [...] Digoxin Ord9 DIGOXIN 0.6 NG/ML 05/06/2015 Pt Tyl8629 PT 23.3 seconds 05/06/2015 Pt Pdu8314 INR 2.1 05/06/2015 Pt Rnl5521 Low Intensity - 1.5-2.0 05/06/2015 Pt Vws1579 Mod intensity - 2.0-3.0 05/06/2015 Pt Bib4828 Hi intensity - 3.0-4.0 05/06/2015 Free T4 Fey070 FREE T4 1.65 ng/dL 05/06/2015 Comp Metabolic Nva948 NA 132 mEq/L 05/06/2015 Comp Metabolic Jzf832 K 4.1 mEq/L 05/06/2015 Comp Metabolic Xgu128 CL 98 mEq/L 05/06/2015 Comp Metabolic Avf549 CO2 27.0 mEq/L 05/06/2015 Comp Metabolic Zkc049 ANION GAP 11 05/06/2015 Comp Metabolic Qin601 GLUCOSE 71 mg/dL 05/06/2015 Comp Metabolic Nbl115 Creat 0.7 mg/dL 05/06/2015 Comp Metabolic Vhg520 eGFR 82 ml/min/1.73m2 05/06/2015 Comp Metabolic Oym749 BUN 16 mg/dL 05/06/2015 Comp Metabolic Wsh006 B/C Ratio 22.2 Ratio 05/06/2015 Comp Metabolic Boo346 CALCIUM 9.4 mg/dL 05/06/2015 Comp Metabolic Khy502 ALK PHOS 60 U/L 05/06/2015 Comp Metabolic Mcz716 AST(SGOT) 22 U/L 05/06/2015 Comp Metabolic Iif837 ALT(SGPT) 24 U/L 05/06/2015 Comp Metabolic Czm728 BILI T 0.8 mg/dL 05/06/2015 Comp Metabolic Gdp909 ALBUMIN 4.3 g/dL 05/06/2015 Comp Metabolic Vuh257 TPRO 7.6 g/dL 05/06/2015 Comp Metabolic Xhc726 GLOB 3.3 g/dL 05/06/2015 Comp Metabolic Xrl361 A/G Ratio 1.3 Ratio 05/06/2015 Comp Metabolic Pod970 Osmo 264 mOsmo 05/06/2015 DIGOXIN 7774301 DIGOXIN 1.1 NG/ML 05/15/2013 PT/MC 1370409 PRO TIME 21.7 SEC 05/15/2013 PT/MC 9559243 INR MCMC 2.0 05/15/2013 CHEM 14 9628168 AST 24 U/L 04/23/2013 CHEM 14 4648175 ALT 31 IU/L 04/23/2013 CHEM 14 2527853 BUN 13 MG/DL 04/23/2013 CHEM 14 5559033 ALBUMIN 4.1 GM/DL 04/23/2013 CHEM 14 2095199 CHLORIDE 103 MMOL/L 04/23/2013 CHEM 14 9025898 BILI TOT 0.5 MG/DL 04/23/2013 CHEM 14 0900978 ALK PHOS 44 U/L 04/23/2013 CHEM 14 5759801 SODIUM 137 MMOL/L 04/23/2013 CHEM 14 4808923 CREATININE 0.61 MG/DL 04/23/2013 CHEM 14 4266711 CALCIUM 9.5 MG/DL 04/23/2013 CHEM 14 1575114 POTASSIUM 4.0 MMOL/L 04/23/2013 CHEM 14 1854682 PROT TOT 6.6 GM/DL 04/23/2013 CHEM 14 3395634 GLUCOSE 99 MG/DL 04/23/2013 CHEM 14 5467281 BICARB 27 MMOL/L 04/23/2013 CHEM 14 5003177 ANION GAP 7 MEQ/L 04/23/2013 GFR CALC 4646461 GFR AA >60 ML/MIN 04/23/2013 GFR CALC 0235835 GFR NON-AA >60 ML/MIN 04/23/2013 TSH 6926705 TSH 4.204 uIU/ML 04/23/2013 CBC 2738950 WBC 6.7 10e9/L 04/23/2013 CBC 1749367 RBC 4.19 10e12/L 04/23/2013 CBC 2047421 HGB 13.2 g/dL 04/23/2013 CBC 8057197 HCT DET 39.2 % 04/23/2013 CBC 6517664 MCV 93.6 fL 04/23/2013 CBC 5692883 MCH 31.5 pg 04/23/2013 CBC 1753675 MCHC 33.7 g/dL 04/23/2013 CBC 6093928 PLT 202 10e9/L 04/23/2013 CBC 7407149 MPV 11.4 fL 04/23/2013 CBC 8875988 YANIRA % 70.5 % 04/23/2013 CBC 1352943 LY % 19.6 % 04/23/2013 CBC 2088471 MON % 8.2 % 04/23/2013 CBC 1710084 EOS % 1.6 % 04/23/2013 CBC 7974164 BASO % 0.1 % 04/23/2013 CBC 2982127 RDW 13.7 % 04/23/2013 CBC 8275103 ABS YANIRA 4.72 10e9/L 04/23/2013 CBC 3048672 ABS LYMPH 1.31 10e9/L 04/23/2013 CBC 7991755 ABS MONO 0.55 10e9/L 04/23/2013 CBC 6069666 ABS EOS 0.11 10e9/L 04/23/2013 CBC 6471743 ABS BASO 0.01 10e9/L 04/23/2013 CBC 4949987 RDW-SD 45.7 fL 04/23/2013 PT/MC 5471229 PRO TIME 13.4 SEC 12/17/2012 PT/MC 5648573 INR MCMC 1.0 12/17/2012 PT/MC 2832846 PRO TIME 16.6 SEC 12/14/2012 PT/MC 4395790 INR MCMC 1.4 12/14/2012 PT/MC 9832894 PRO TIME 27.2 SEC 12/11/2012 PT/MC 2362291 INR MCMC 2.6 12/11/2012 DIGOXIN 0708215 DIGOXIN 2.1 NG/ML 03/08/2012 GFR CALC 3650099 GFR AA >60 ML/MIN 03/08/2012 GFR CALC 1101049 GFR NON-AA >60 ML/MIN 03/08/2012 CHEM 14 9820047 AST 16 U/L 03/08/2012 CHEM 14 5849832 ALT 14 IU/L 03/08/2012 CHEM 14 9610733 BUN 10 MG/DL 03/08/2012 CHEM 14 7079857 ALBUMIN 4.2 GM/DL 03/08/2012 CHEM 14 7063691 CHLORIDE 100 MMOL/L 03/08/2012 CHEM 14 8686980 BILI TOT 0.5 MG/DL 03/08/2012 CHEM 14 7424629 ALK PHOS 59 U/L 03/08/2012 CHEM 14 6641307 SODIUM 136 MMOL/L 03/08/2012 CHEM 14 6619951 CREATININE 0.65 MG/DL 03/08/2012 CHEM 14 2205675 CALCIUM 9.4 MG/DL 03/08/2012 CHEM 14 9454642 POTASSIUM 3.9 MMOL/L 03/08/2012 CHEM 14 3628622 PROT TOT 6.7 GM/DL 03/08/2012 CHEM 14 7439369 GLUCOSE 90 MG/DL 03/08/2012 CHEM 14 8579408 BICARB 30 MMOL/L 03/08/2012 CHEM 14 2647970 ANION GAP 6 MEQ/L 03/08/2012 CHEM 14 5412743 AST 16 U/L 11/23/2011 CHEM 14 3363852 ALT 14 IU/L 11/23/2011 CHEM 14 3889738 BUN 11 MG/DL 11/23/2011 CHEM 14 8859812 ALBUMIN 4.1 GM/DL 11/23/2011 CHEM 14 8528038 CHLORIDE 100 MMOL/L 11/23/2011 CHEM 14 3767236 BILI TOT 0.5 MG/DL 11/23/2011 CHEM 14 1625767 ALK PHOS 50 U/L 11/23/2011 CHEM 14 5796971 SODIUM 135 MMOL/L 11/23/2011 CHEM 14 7031138 CREATININE 0.57 MG/DL 11/23/2011 CHEM 14 1753571 CALCIUM 9.1 MG/DL 11/23/2011 CHEM 14 3245639 POTASSIUM 4.5 MMOL/L 11/23/2011 CHEM 14 0048636 PROT TOT 6.5 GM/DL 11/23/2011 CHEM 14 3144042 GLUCOSE 89 MG/DL 11/23/2011 CHEM 14 0194722 BICARB 28 MMOL/L 11/23/2011 CHEM 14 3518654 ANION GAP 7 MEQ/L 11/23/2011 GFR CALC 1660530 GFR AA >60 ML/MIN 11/23/2011 GFR CALC 0562197 GFR NON-AA >60 ML/MIN 11/23/2011 CBC 6471265 WBC 5.1 10e9/L 11/23/2011 CBC 9795218 RBC 4.06 10e12/L 11/23/2011 CBC 5479309 HGB 12.5 g/dL 11/23/2011 CBC 1491157 HCT DET 37.3 % 11/23/2011 CBC 5258473 MCV 91.9 fL 11/23/2011 CBC 4924368 MCH 30.8 pg 11/23/2011 CBC 0554617 MCHC 33.5 g/dL 11/23/2011 CBC 4375020 PLT 222 10e9/L 11/23/2011 CBC 0215020 MPV 10.8 fL 11/23/2011 CBC 6988557 YANIRA % 64.2 % 11/23/2011 CBC 5120381 LY % 22.3 % 11/23/2011 CBC 8767440 MON % 11.3 % 11/23/2011 CBC 9643460 EOS % 1.8 % 11/23/2011 CBC 3265176 BASO % 0.4 % 11/23/2011 CBC 1749733 RDW 13.6 % 11/23/2011 CBC 2789759 ABS YANIRA 3.27 10e9/L 11/23/2011 CBC 7394344 ABS LYMPH 1.14 10e9/L 11/23/2011 CBC 9903622 ABS MONO 0.58 10e9/L 11/23/2011 CBC 9644536 ABS EOS 0.09 10e9/L 11/23/2011 CBC 0924915 ABS BASO 0.02 10e9/L 11/23/2011 CBC 3224010 RDW-SD 44.5 fL 11/23/2011 UA 33727 Specific Warren 1.005 03/04/2011 UA 99296 PH 6 03/04/2011 UA 44427 GLUCOSE N 03/04/2011 UA 36273 Protein N 03/04/2011 UA 05660 Blood ++ 03/04/2011 UA 53621 Bilirubin N 03/04/2011 UA 11807 Ketones N 03/04/2011 UA 63688 Urobilinogen N 03/04/2011 UA 08791 Nitrite N 03/04/2011 UA 44000 Leukocytes N 03/04/2011 URINALYSIS NONAUTO W/O SCOPE 68742 Specific Warren 1.010 DateTime(Free Text in Aprima) URINALYSIS NONAUTO W/O SCOPE 11451 PH 6.5 DateTime(Free Text in Aprima) URINALYSIS NONAUTO W/O SCOPE 41067 GLUCOSE neg DateTime(Free Text in Aprima) URINALYSIS NONAUTO W/O SCOPE 22857 Protein neg DateTime(Free Text in Aprima) URINALYSIS NONAUTO W/O SCOPE 90592 Blood 3+ DateTime(Free Text in Aprima) URINALYSIS NONAUTO W/O SCOPE 03143 Bilirubin neg DateTime(Free Text in Aprima) URINALYSIS NONAUTO W/O SCOPE 07169 Ketones neg DateTime(Free Text in Aprima) URINALYSIS NONAUTO W/O SCOPE 20618 Urobilinogen neg DateTime(Free Text in Aprima) URINALYSIS NONAUTO W/O SCOPE 45776 Nitrite neg DateTime(Free Text in Aprima) URINALYSIS NONAUTO W/O SCOPE 29478 Leukocytes neg DateTime(Free Text in Aprima) URINALYSIS NONAUTO W/O SCOPE 49737 Specific Warren 1.010 DateTime(Free Text in Aprima) URINALYSIS NONAUTO W/O SCOPE 70609 PH 5 DateTime(Free Text in Aprima) URINALYSIS NONAUTO W/O SCOPE 84965 GLUCOSE neg DateTime(Free Text in Aprima) URINALYSIS NONAUTO W/O SCOPE 02670 Protein neg DateTime(Free Text in Aprima) URINALYSIS NONAUTO W/O SCOPE 88726 Blood 3+ DateTime(Free Text in Aprima) URINALYSIS NONAUTO W/O SCOPE 00487 Bilirubin neg DateTime(Free Text in Aprima) URINALYSIS NONAUTO W/O SCOPE 14487 Ketones neg DateTime(Free Text in Aprima) URINALYSIS NONAUTO W/O SCOPE 05522 Urobilinogen neg DateTime(Free Text in Aprima) URINALYSIS NONAUTO W/O SCOPE 32777 Nitrite neg DateTime(Free Text in Aprima) URINALYSIS NONAUTO W/O SCOPE 52933 Leukocytes neg DateTime(Free Text in Aprima) URINALYSIS NONAUTO W/O SCOPE 04029 Specific Warren 1.005 DateTime(Free Text in Aprima) URINALYSIS NONAUTO W/O SCOPE 29400 PH 8.5 DateTime(Free Text in Aprima) URINALYSIS NONAUTO W/O SCOPE 94713 GLUCOSE neg DateTime(Free Text in Aprima) URINALYSIS NONAUTO W/O SCOPE 05575 Protein neg DateTime(Free Text in Aprima) URINALYSIS NONAUTO W/O SCOPE 15486 Blood 1+ DateTime(Free Text in Aprima) URINALYSIS NONAUTO W/O SCOPE 32757 Bilirubin neg DateTime(Free Text in Aprima) URINALYSIS NONAUTO W/O SCOPE 09837 Ketones neg DateTime(Free Text in Aprima) URINALYSIS NONAUTO W/O SCOPE 15065 Urobilinogen neg DateTime(Free Text in Aprima) URINALYSIS NONAUTO W/O SCOPE 48638 Nitrite neg DateTime(Free Text in Aprima) URINALYSIS NONAUTO W/O SCOPE 19012 Leukocytes neg DateTime(Free Text in Aprima) URINALYSIS NONAUTO W/O SCOPE 35613 Specific Warren 1.005 DateTime(Free Text in Aprima) URINALYSIS NONAUTO W/O SCOPE 62154 PH 7 DateTime(Free Text in Aprima) URINALYSIS NONAUTO W/O SCOPE 63968 GLUCOSE neg DateTime(Free Text in Aprima) URINALYSIS NONAUTO W/O SCOPE 42054 Protein neg DateTime(Free Text in Aprima) URINALYSIS NONAUTO W/O SCOPE 74729 Blood large DateTime(Free Text in Aprima) URINALYSIS NONAUTO W/O SCOPE 56387 Bilirubin neg DateTime(Free Text in Aprima) URINALYSIS NONAUTO W/O SCOPE 81940 Ketones neg DateTime(Free Text in Aprima) URINALYSIS NONAUTO W/O SCOPE 82864 Urobilinogen 0.2 DateTime(Free Text in Aprima) URINALYSIS NONAUTO W/O SCOPE 29022 Nitrite neg DateTime(Free Text in Aprima) URINALYSIS NONAUTO W/O SCOPE 64733 Leukocytes neg DateTime(Free Text in Aprima) URINALYSIS NONAUTO W/O SCOPE 20060 Specific Warren 1.005 DateTime(Free Text in Aprima) URINALYSIS NONAUTO W/O SCOPE 59197 PH 7.5 DateTime(Free Text in Aprima) URINALYSIS NONAUTO W/O SCOPE 59697 GLUCOSE DateTime(Free Text in Aprima) URINALYSIS NONAUTO W/O SCOPE 90846 Protein trace DateTime(Free Text in Aprima) URINALYSIS NONAUTO W/O SCOPE 08247 Blood 4+ DateTime(Free Text in Aprima) URINALYSIS NONAUTO W/O SCOPE 94030 Bilirubin DateTime(Free Text in Aprima) URINALYSIS NONAUTO W/O SCOPE 29111 Ketones DateTime(Free Text in Aprima) URINALYSIS NONAUTO W/O SCOPE 12384 Urobilinogen DateTime(Free Text in Aprima) URINALYSIS NONAUTO W/O SCOPE 90689 Nitrite DateTime(Free Text in Aprima) URINALYSIS NONAUTO W/O SCOPE 72322 Leukocytes trace DateTime(Free Text in Aprima) Review [...] clear 01/17/2018 None Full Exam - General 1995 Eyes conjunctiva/eyelids Overall: eyelids normal 01/17/2018 None [...] FLU VACC PRSV FREE INC ANTIG CPT-4: 08508 03/27/2017 PPPS, SUBSEQ VISIT CPT- 4: G0439 01/23/2017 URINALYSIS NONAUTO W/O SCOPE CPT-4: 88403 05/17/2016 ADMIN INFLUENZA VIRUS VAC CPT-4: G0008 03/24/2016 FLU VACC PRSV FREE INC ANTIG CPT-4: 99126 03/24/2016 ADMIN PNEUMOCOCCAL VACCINE SNOMED CT: 32105346 CPT-4: G0009 05/13/2015 PNEUMOCOCCAL VACC [address]: 43551767 CPT-4: 77498 05/13/2015 Pneumococcal Polysaccharide Vaccine, 23-Valent, Ad Assigned to/Mela Bledsoe CPT-4: 30971Bmqqlrt 07/11/2014 ADMIN PNEUMOCOCCAL VACCINE SNOMED CT: 49703669 CPT-4: G0009 07/11/2014 URINALYSIS NONAUTO W/O SCOPE CPT-4: 23783 05/14/2014 URINALYSIS NONAUTO W/O SCOPE CPT-4: 66624 05/06/2014 URINALYSIS NONAUTO W/O SCOPE CPT-4: 00826 04/29/2014 ADMIN INFLUENZA VIRUS VAC CPT-4: G0008 03/20/2014 FLU VAC NO PRSV 4 SCOTT 3 YRS+ Assigned to/Mela Bledsoe CPT-4: 07543Pkfdicw 03/20/2014 URINALYSIS NONAUTO W/O SCOPE CPT-4: 33122 07/29/2013 URINALYSIS NONAUTO W/O SCOPE CPT-4: 49824 07/01/2013 URINALYSIS NONAUTO W/O SCOPE CPT-4: 66879 06/20/2013 ROUTINE VENIPUNCTURE CPT- 4: 26294 05/15/2013 ROUTINE VENIPUNCTURE CPT- 4: 10885 04/23/2013 ADMIN INFLUENZA VIRUS VAC CPT-4: G0008 04/23/2013 FLULAVAL VACC, 3 YRS & >, IM CPT-4: Q2036 04/23/2013 ROUTINE VENIPUNCTURE CPT- 4: 48387 12/17/2012 ROUTINE VENIPUNCTURE CPT- 4: 77233 12/14/2012 ROUTINE VENIPUNCTURE CPT- 4: 89938 12/11/2012 PRESCRIP TRANSMIT VIA ERX SY CPT-4: G8553 12/11/2012 PRESCRIP TRANSMIT VIA ERX SY CPT-4: G8553 10/30/2012 URINALYSIS NONAUTO W/O SCOPE CPT-4: 73427 09/13/2012 ADMIN INFLUENZA VIRUS VAC CPT-4: G0008 04/18/2012 FLULAVAL VACC, 3 YRS & >, IM CPT-4: Q2036 04/18/2012 URINALYSIS NONAUTO W/O SCOPE CPT-4: 39897 03/13/2012 ROUTINE VENIPUNCTURE CPT- 4: 71314 03/08/2012 URINALYSIS NONAUTO W/O SCOPE CPT-4: 92775 02/13/2012 PRESCRIP TRANSMIT VIA ERX SY CPT-4: G8553 02/13/2012 ROCEPHIN, PER 250 MG CPT- 4: J0696 11/23/2011 ROUTINE VENIPUNCTURE CPT- 4: 45990 11/23/2011 URINALYSIS NONAUTO W/O SCOPE CPT-4: 12462 11/23/2011 PRESCRIP TRANSMIT VIA ERX SY CPT-4: G8553 11/23/2011 REMOVE IMPACTED EAR WAX UNI CPT-4: 05503 10/17/2011 PRESCRIP TRANSMIT VIA ERX SY CPT-4: G8553 10/03/2011 PRESCRIP TRANSMIT VIA ERX SY CPT-4: G8553 08/08/2011 URINALYSIS NONAUTO W/O SCOPE CPT-4: 30261 03/15/2011 URINALYSIS NONAUTO W/O SCOPE CPT-4: 53266 03/04/2011 THER/PROPH/DIAG INJ SC/IM CPT-4: 51365 03/04/2011 ROCEPHIN, PER 250 MG CPT- 4: J0696 03/04/2011 Vital Signs Date Vital 01/31/2018 Blood Pressure 1: 116/68 Code: 8480-6 BMI: 21.1 Code: 77103-6 Heart Rate 1: 89 bpm Height: 5' SpO2: 98% Weight: 108 lbs 01/17/2018 Blood Pressure 1: 134/74 Code: 8480-6 BMI: 21.3 Code: 38750-4 Heart Rate 1: 74 bpm Height: 5' SpO2: 96% Waist Measure (cm): 71 cm Weight: 109 lbs 12/14/2017 Blood Pressure 1: 150/78 Code: 8480-6 BMI: 21.5 Code: 13828-5 Heart Rate 1: 77 bpm Height: 5' SpO2: 98% Temperature: 36.7 (C) / 98.1 (F) Weight: 110 lbs 12/07/2017 Blood Pressure 1: 134/70 Code: 8480-6 Heart Rate 1: 76 bpm Height: SpO2: 98% Temperature: 36.8 (C) / 98.2 (F) Weight: 11/14/2017 Blood Pressure 1: 152/84 Code: 8480-6 BMI: 21.9 Code: 65710-0 Heart Rate 1: 95 bpm Height: 5' SpO2: 93% Weight: 112 lbs 03/27/2017 Blood Pressure 1: 122/70 Code: 8480-6 BMI: 21.3 Code: 21998-5 Heart Rate 1: 75 bpm Height: 5' Weight: 109 lbs 01/23/2017 BMI: 21.5 Code: 90964-8 Height: 5' Weight: 110 lbs 01/19/2017 Blood Pressure 1: 112/60 Code: 8480-6 BMI: 21.5 Code: 14599-5 Heart Rate 1: 54 bpm Height: 5' SpO2: 97% Weight: 110 lbs 11/29/2016 Blood Pressure 1: 126/68 Code: 8480-6 Height: 5' Weight: 11/23/2016 Blood Pressure 1: 130/72 Code: 8480-6 BMI: 21.9 Code: 30850-8 Heart Rate 1: 48 bpm Height: 5' SpO2: 97% Temperature: 36.7 (C) / 98.0 (F) Weight: 112 lbs 11/21/2016 Blood Pressure 1: 134/76 Code: 8480-6 BMI: 21.9 Code: 60880-8 Heart Rate 1: 41 bpm Height: 5' SpO2: 94% Temperature: 36.9 (C) / 98.4 (F) Weight: 112 lbs 11/08/2016 Blood Pressure 1: 126/74 Code: 8480-6 Heart Rate 1: 82 bpm Height: 5' SpO2: 94% Weight: 11/02/2016 Blood Pressure 1: 112/66 Code: 8480-6 Heart Rate 1: 72 bpm Height: 5' SpO2: 95% Weight: 10/27/2016 Blood Pressure 1: 130/64 Code: 8480-6 BMI: 21.7 Code: 29770-5 Heart Rate 1: 81 bpm Height: 5' SpO2: 96% Weight: 111 lbs 08/31/2016 Blood Pressure 1: 132/72 Code: 8480-6 BMI: 22.5 Code: 35938-8 Heart Rate 1: 66 bpm Height: 5' Weight: 115 lbs 07/27/2016 Blood Pressure 1: 166/74 Code: 8480-6 BMI: 23.2 Code: 18800-3 Heart Rate 1: 48 bpm Height: 5' SpO2: 90% Temperature: 36.8 (C) / 98.2 (F) Weight: 119 lbs 06/23/2016 Blood Pressure 1: 128/70 Code: 8480-6 BMI: 22.3 Code: 19747-8 Heart Rate 1: 75 bpm Height: 5' SpO2: 97% Weight: 114 lbs 06/09/2016 BMI: 22.7 Code: 94445-4 Heart Rate 1: 73 bpm Height: 5' SpO2: 97% Weight: 116 lbs 05/25/2016 Blood Pressure 1: 138/62 Code: 8480-6 BMI: 22.8 Code: 82110-0 Heart Rate 1: 76 bpm Height: 5' Weight: 117 lbs 05/17/2016 Blood Pressure 1: 116/70 Code: 8480-6 BMI: 22.8 Code: 33326-2 Heart Rate 1: 74 bpm Height: 5' SpO2: 94% Weight: 117 lbs 03/24/2016 Blood Pressure 1: 154/78 Code: 8480-6 BMI: 22.5 Code: 62461-5 Heart Rate 1: 78 bpm Height: 5' SpO2: 97% Weight: 115 lbs 02/02/2016 Blood Pressure 1: 132/70 Code: 8480-6 BMI: 22.3 Code: 36139-7 Heart Rate 1: 74 bpm Height: 5' SpO2: 94% Weight: 114 lbs 2016 Blood Pressure 1: 120/62 Code: 8480-6 BMI: 22.0 Code: 68703-6 Heart Rate 1: 68 bpm Height: 5' Weight: 112 lbs 8 oz 12/21/2015 Blood Pressure 1: 122/82 Code: 8480-6 BMI: 21.9 Code: 59449-2 Heart Rate 1: 83 bpm Height: 5' SpO2: 93% Temperature: 37.1 (C) / 98.7 (F) Weight: 112 lbs 11/03/2015 Blood Pressure 1: 122/72 Code: 8480-6 BMI: 22.4 Code: 69427-6 Heart Rate 1: 62 bpm Height: 5' Weight: 114 lbs 8 oz 10/19/2015 Blood Pressure 1: 138/62 Code: 8480-6 BMI: 21.1 Code: 92578-2 Heart Rate 1: 79 bpm Height: 5' Weight: 108 lbs 10/13/2015 Blood Pressure 1: 120/62 Code: 8480-6 BMI: 21.0 Code: 84665-7 Heart Rate 1: 76 bpm Height: 5' SpO2: 98% Weight: 108 lbs 09/29/2015 Blood Pressure 1: 130/70 Code: 8480-6 BMI: 20.2 Code: 38061-1 Heart Rate 1: 72 bpm Height: 5' Weight: 104 lbs 09/15/2015 Blood Pressure 1: 128/78 Code: 8480-6 BMI: 19.9 Code: 44306-9 Heart Rate 1: 72 bpm Height: 5' Weight: 102 lbs 8 oz 09/01/2015 Blood Pressure 1: 128/68 Code: 8480-6 BMI: 19.8 Code: 98010-9 Height: 5' Weight: 102 lbs 05/26/2015 Blood Pressure 1: 140/68 Code: 8480-6 BMI: 19.0 Code: 39723-7 Heart Rate 1: 70 bpm Height: 5' Weight: 98 lbs 05/21/2015 Blood Pressure 1: 140/78 Code: 8480-6 BMI: 19.2 Code: 04628-4 Heart Rate 1: 85 bpm Height: 5' SpO2: 95% Weight: 99 lbs 05/07/2015 Blood Pressure 1: 140/82 Code: 8480-6 BMI: 19.0 Code: 44424-3 Heart Rate 1: 76 bpm Height: 5' Weight: 98 lbs 03/23/2015 Blood Pressure 1: 142/60 Code: 8480-6 BMI: 18.6 Code: 05500-0 Heart Rate 1: 52 bpm Height: 5' Weight: 96 lbs 03/09/2015 Blood Pressure 1: 138/74 Code: 8480-6 BMI: 18.8 Code: 56688-4 Heart Rate 1: 60 bpm Height: 5' Weight: 97 lbs 10/30/2014 Blood Pressure 1: 112/82 Code: 8480-6 BMI: 19.0 Code: 01184-2 Heart Rate 1: 64 bpm Height: 5' Weight: 98 lbs 07/11/2014 Blood Pressure 1: 146/70 Code: 8480-6 BMI: 18.8 Code: 35754-1 Heart Rate 1: 68 bpm Height: 5' Weight: 97 lbs 05/20/2014 Blood Pressure 1: 142/76 Code: 8480-6 BMI: 18.6 Code: 84688-4 Heart Rate 1: 78 bpm Height: 5' Weight: 96 lbs 04/29/2014 Blood Pressure 1: 138/62 Code: 8480-6 BMI: 18.3 Code: 28389-6 Heart Rate 1: 80 bpm Height: 5' Weight: 94 lbs 8 oz 03/20/2014 Blood Pressure 1: 142/68 Code: 8480-6 BMI: 18.6 Code: 20474-0 Heart Rate 1: 96 bpm Height: 5' Weight: 96 lbs 03/05/2014 Blood Pressure 1: 122/72 Code: 8480-6 BMI: 18.8 Code: 98936-3 Heart Rate 1: 82 bpm Height: 5' SpO2: 97% Weight: 97 lbs 01/29/2014 Blood Pressure 1: 124/78 Code: 8480-6 BMI: 18.8 Code: 10115-0 Heart Rate 1: 60 bpm Height: 5' Weight: 97 lbs 01/14/2014 Blood Pressure 1: 120/58 Code: 8480-6 BMI: 19.2 Code: 42761-0 Heart Rate 1: 56 bpm Height: 5' Temperature: 36.9 (C) / 98.4 (F) Weight: 99 lbs 12/25/2013 Blood Pressure 1: 118/78 Code: 8480-6 BMI: 19.2 Code: 71337-9 Heart Rate 1: 68 bpm Height: 5' Weight: 99 lbs 11/27/2013 Blood Pressure 1: 102/68 Code: 8480-6 BMI: 19.4 Code: 00379-0 Heart Rate 1: 56 bpm Height: 5' Weight: 100 lbs 09/12/2013 Blood Pressure 1: 142/62 Code: 8480-6 BMI: 19.7 Code: 00526-8 Heart Rate 1: 72 bpm Height: 5'1" Weight: 104 lbs 08/15/2013 Blood Pressure 1: 152/92 Code: 8480-6 Heart Rate 1: 96 bpm Weight: 102 lbs 08/01/2013 Blood Pressure 1: 122/68 Code: 8480-6 BMI: 19.1 Code: 29493-4 Heart Rate 1: 68 bpm Height: 5'1" Weight: 101 lbs 07/01/2013 Blood Pressure 1: 130/72 Code: 8480-6 BMI: 19.5 Code: 29839-9 Heart Rate 1: 80 bpm Height: 5'1" Temperature: 36.1 (C) / 97.0 (F) Weight: 103 lbs 05/29/2013 Blood Pressure 1: 126/72 Code: 8480-6 BMI: 19.3 Code: 98460-4 Heart Rate 1: 80 bpm Height: 5'1" Weight: 102 lbs 05/15/2013 Blood Pressure 1: 156/74 Code: 8480-6 BMI: 19.3 Code: 83834-5 Heart Rate 1: 88 bpm Height: 5'1" Weight: 102 lbs 04/23/2013 Blood Pressure 1: 140/82 Code: 8480-6 BMI: 19.3 Code: 55043-3 Heart Rate 1: 72 bpm Height: 5'1" Weight: 102 lbs 03/21/2013 Blood Pressure 1: 142/74 Code: 8480-6 Heart Rate 1: 92 bpm Weight: 103 lbs 01/16/2013 Blood Pressure 1: 120/56 Code: 8480-6 BMI: 20.0 Code: 15957-9 Heart Rate 1: 72 bpm Height: 5'1" Weight: 106 lbs 12/19/2012 Blood Pressure 1: 118/66 Code: 8480-6 Heart Rate 1: 84 bpm Weight: 12/10/2012 Blood Pressure 1: 132/62 Code: 8480-6 Heart Rate 1: 64 bpm Weight: 103 lbs 10/30/2012 Blood Pressure 1: 122/66 Code: 8480-6 BMI: 19.9 Code: 06363-4 Heart Rate 1: 61 bpm Height: 5'1" [...] 1: 118/72 Code: 8480-6 BMI: 21.0 Code: 35990-2 Heart Rate 1: 66 bpm Height: 5'1" Respiratory Rate: 16 bpm Weight: 111 lbs 2012 Blood Pressure 1: 122/62 Code: 8480-6 Heart Rate 1: 68 bpm Weight: 110 lbs 12/01/2011 Blood Pressure 1: 150/60 Code: 8480-6 BMI: 20.8 Code: 94955-8 Heart Rate 1: 60 bpm Height: 5'1" Respiratory Rate: 16 bpm Weight: 110 lbs 11/23/2011 Blood Pressure 1: 170/68 Code: 8480-6 BMI: 21.1 Code: 57206-0 Heart Rate 1: 64 bpm Height: 5'1" Temperature: 36.3 (C) / 97.3 (F) Weight: 111 lbs 8 oz 10/17/2011 Blood Pressure 1: 148/62 Code: 8480-6 Heart Rate 1: 74 bpm 10/03/2011 Blood Pressure 1: 102/48 Code: 8480-6 BMI: 21.4 Code: 16395-6 Heart Rate 1: 76 bpm Height: 5'1" Respiratory Rate: 16 bpm Weight: 113 lbs 08/08/2011 Blood Pressure 1: 128/60 Code: 8480-6 Heart Rate 1: 80 bpm Respiratory Rate: 16 bpm Weight: 113 lbs 05/09/2011 Blood Pressure 1: 130/62 Code: 8480-6 BMI: 20.7 Code: 68764-7 Heart Rate 1: 64 bpm Height: 5'1" Respiratory Rate: 16 bpm Weight: 109 lbs 8 oz 03/29/2011 Blood Pressure 1: 120/62 Code: 8480-6 BMI: 20.2 Code: 64602-0 Heart Rate 1: 66 bpm Height: 5'1" Respiratory Rate: 12 bpm Weight: 107 lbs 03/15/2011 Blood Pressure 1: 120/64 Code: 8480-6 BMI: 19.8 Code: 10256-7 Heart Rate 1: 76 bpm Height: 5'1" [...] contacts 03/20/2014 [place]illitis sore throat Pertinent Findings [...] data Encounters Encounter Performer Location Codes Date ) [id number] EST. PATIENT, LEVEL IV Diagnosis: Essential (primary) hypertension[ICD10: I10] Diagnosis: Atrophy of thyroid (acquired)[ICD10: E03.4] Diagnosis: Other correction (current) drug therapy[ICD10: Z79.899] Karma Bahena MD, [facility] CPT-4: 27442 01/31/2018 [id number]) 63771 EST. PATIENT, LEVEL IV Diagnosis: Essential (primary) hypertension[ICD10: I10] Diagnosis: Chronic atrial fibrillation[ICD10: I48.2] Diagnosis: Allergic rhinitis due to pollen[ICD10: J30.1] Diagnosis: Cough[ICD10: R05] [facility] CPT-4: 45615 12/14/2017 94601 EST. PATIENT, LEVEL IV Diagnosis: Other allergic rhinitis[ICD10: J30.89] [facility] CPT- 4: 43716 12/07/2017 [id number]) 41357 EST. 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 PATIENT, LEVEL IV Diagnosis: Essential (primary) hypertension[ICD10: I10] Diagnosis: Localized edema[ICD10: R60.0] Diagnosis: Encounter for immunization[ICD10: Z23] Diagnosis: Age-related osteoporosis without current pathological fracture[ICD10: M81.0] Karma Bahena MD [facility] CPT-4: 92790 03/27/2017 ([id number]) 14173 EST. PATIENT, LEVEL IV Diagnosis: Essential (primary) hypertension[ICD10: I10] Diagnosis: Chronic atrial fibrillation[ICD10: I48.2] Diagnosis: Dysphonia[ICD10: R49.0] Karma Bahena MD, [facility] CPT-4: 49041 01/19/2017 ([id number]) Miscellaneous no charge Diagnosis: Cough[ICD10: R05] Diagnosis: Acute upper respiratory infection, unspecified[ICD10: J06.9] Laura Bahena MD, [facility] CPT-4: 61816 11/29/2016 89490 EST. PATIENT, LEVEL III Diagnosis: Cough[ICD10: R05] Diagnosis: Acute laryngopharyngitis[ICD10: J06.0] Katharine Bahena MD, [facility] CPT- 4: 45950 11/23/2016 ([id number]) 13579 EST. PATIENT, LEVEL III Diagnosis: Acute laryngopharyngitis[ICD10: J06.0] Laura Bahena MD [facility] CPT-4: 51274 11/21/2016 ([id number]) Miscellaneous no charge Diagnosis: Laceration without foreign body of right forearm, subsequent encounter[ICD10: S51.811D] Karma Bahena MD, [facility] CPT-4: 06743 11/17/2016 ([id number]) Miscellaneous no charge Diagnosis: Laceration without foreign body of right forearm, subsequent encounter[ICD10: S51.811D] Karma Bahena MD [facility] CPT-4: 44801 11/14/2016 ([id number]) Miscellaneous no charge Diagnosis: Laceration without foreign body of right forearm, subsequent encounter[ICD10: S51.811D] Karma Bahena MD [facility] CPT-4: 50262 11/11/2016 ([id number]) Miscellaneous no charge Diagnosis: Laceration without foreign body of right forearm, subsequent encounter[ICD10: S51.811D] Karma Bahena MD, [facility] CPT-4: 69706 11/10/2016 ([id number]) 40086 EST. PATIENT, LEVEL II Diagnosis: Laceration without foreign body of right forearm, subsequent encounter[ICD10: S51.811D] Karma Bahena MD [facility] CPT-4: 18709 11/08/2016 ([id number]) 66228 EST. PATIENT, LEVEL IV Diagnosis: Atrophy of thyroid (acquired)[ICD10: E03.4] Diagnosis: Chronic atrial fibrillation[ICD10: I48.2] Diagnosis: Laceration without foreign body of right forearm, subsequent encounter[ICD10: S51.811D] Karma Bahena MD, [facility] CPT-4: 35634 11/02/2016 ([id number]) 35683 EST. PATIENT, LEVEL III Diagnosis: Laceration without foreign body of right forearm, initial encounter[ICD10: S51.811A] Laura Bahena MD, [facility] CPT-4: 33028 10/27/2016 ([id number]) 97448 EST. PATIENT, LEVEL IV Diagnosis: Essential (primary) hypertension[ICD10: I10] Diagnosis: Chronic atrial fibrillation[ICD10: I48.2] Karma Bahena MD, [facility] CPT-4: 83773 08/31/2016 ([id number]) 65053 EST. PATIENT, LEVEL IV Diagnosis: Localized edema[ICD10: R60.0] Diagnosis: Essential (primary) hypertension[ICD10: I10] Diagnosis: Abdominal distension (gaseous)[ICD10: R14.0] Karma Bahena MD, [facility] CPT-4: 80158 07/27/2016 ([id number]) 31278 EST. PATIENT, LEVEL IV Diagnosis: Essential (primary) hypertension[ICD10: I10] Diagnosis: Chronic atrial fibrillation[ICD10: I48.2] Diagnosis: Localized edema[ICD10: R60.0] Karma Bahena MD, [facility] CPT-4: 86082 06/23/2016 ([id number]) 38041 EST. PATIENT, LEVEL III Diagnosis: Localized edema[ICD10: R60.0] Karma Bahena MD, [facility] CPT-4: 42697 06/09/2016 ([id number]) 37207 EST. PATIENT, LEVEL III Diagnosis: Irritable bowel syndrome without diarrhea[ICD10: K58.9] Diagnosis: Pruritus ani[ICD10: L29.0] Karma Bahena MD, [facility] CPT-4: 19223 05/25/2016 ([id number]) 31536 EST. PATIENT, LEVEL III Diagnosis: Abdominal distension (gaseous)[ICD10: R14.0] Diagnosis: Encounter for screening mammogram for malignant neoplasm of breast[ICD10: Z12.31] Karma Bahena MD [facility] CPT-4: 65983 05/17/2016 ([id number]) 77732 EST. PATIENT, LEVEL IV Diagnosis: Essential (primary) hypertension[ICD10: I10] Diagnosis: First degree hemorrhoids[ICD10: K64.0] Diagnosis: Encounter for immunization[ICD10: Z23] Karma Bahena MD, [facility] CPT-4: 50518 03/24/2016 ([id number]) 89609 EST. PATIENT, LEVEL III Diagnosis: Epidermal cyst[ICD10: L72.0] Diagnosis: Essential (primary) hypertension[ICD10: I10] Diagnosis: Chronic atrial fibrillation[ICD10: I48.2] Diagnosis: Other correction (current) drug therapy[ICD10: Z79.899] Karma Bahena MD, [facility] CPT-4: 59508 02/02/2016 ([id number]) 50410 EST. PATIENT, LEVEL III Diagnosis: Acute anal fissure[ICD10: K60.0] Karma Bahena MD, [facility] CPT-4: 76455 2016 ([id number]) 66358 EST. PATIENT, LEVEL III Diagnosis: Allergic rhinitis due to pollen[ICD10: J30.1] Diagnosis: Acute upper respiratory infection, unspecified[ICD10: J06.9] Laura Bahena MD, [facility] CPT-4: 31587 12/21/2015 ([id number]) 14298 EST. PATIENT, LEVEL III Diagnosis: Essential (primary) hypertension[ICD10: I10] Diagnosis: Chronic atrial fibrillation[ICD10: I48.2] Karma Bahena MD, [facility] CPT-4: 76965 11/03/2015 ([id number]) Miscellaneous no charge Diagnosis: Impacted cerumen, right ear[ICD10: H61.21] Katharine Bahena MD, [facility] CPT-4: 20359 10/19/2015 25498 EST. PATIENT, LEVEL IV Diagnosis: Impacted cerumen, right ear[ICD10: H61.21] Diagnosis: Other allergic rhinitis[ICD10: J30.89] Katharine Bahena MD, [facility] CPT- 4: 45994 10/13/2015 ([id number]) 50123 EST. PATIENT, LEVEL IV Diagnosis: Essential (primary) hypertension[ICD10: I10] Diagnosis: Chronic atrial fibrillation[ICD10: I48.2] Diagnosis: Urge incontinence[ICD10: N39.41] Diagnosis: Age-related osteoporosis without current pathological fracture[ICD10: M81.0] Karma Bahena MD, [facility] CPT-4: 69417 09/29/2015 ([id number]) 51421 EST. PATIENT, LEVEL IV Diagnosis: Essential (primary) hypertension[ICD10: I10] Diagnosis: Chronic atrial fibrillation[ICD10: I48.2] Diagnosis: Irritable bowel syndrome without diarrhea[ICD10: K58.9] Diagnosis: Unspecified hemorrhoids[ICD10: K64.9] Karma Bahena MD, [facility] CPT-4: 04341 09/15/2015 ([id number]) 29372 EST. 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 PATIENT, LEVEL III Diagnosis: Hematuria, unspecified[ICD10: R31.9] Diagnosis: Other urethritis[ICD10: N34.2] Diagnosis: Other specified noninflammatory disorders of vagina[ICD10: N89.8] Karma Bahena MD [facility] CPT-4: 69785 05/26/2015 23126 EST. PATIENT, LEVEL IV Diagnosis: Gout, unspecified[ICD10: M10.9] Karma Bahena MD [facility] CPT-4: 04282 05/21/2015 ([id number]) 74089 EST. PATIENT, LEVEL IV Diagnosis: Chronic atrial fibrillation[ICD10: I48.2] Diagnosis: Irritable bowel syndrome without diarrhea[ICD10: K58.9] Diagnosis: Cystocele, unspecified[ICD10: N81.10] Diagnosis: Urge incontinence[ICD10: N39.41] Diagnosis: Fecal smearing[ICD10: R15.1] Diagnosis: Hypothyroidism, unspecified[ICD10: E03.9] Karma Bahena MD, [facility] CPT-4: 79312 05/07/2015 ([id number]) 91454 EST. PATIENT, LEVEL III Diagnosis: Atrial fibrillation[ICD9: 427.31] Diagnosis: Bloating[ICD9: 787.3] Karma Bahena MD, [facility] CPT-4: 35670 03/23/2015 ([id number]) 01198 EST. PATIENT, LEVEL IV Diagnosis: Abdominal pain[ICD9: 789.00] Diagnosis: Atrial fibrillation[ICD9: 427.31] Diagnosis: ENCNTR LONG-ANTICOAG USE[ICD9: V58.61] Karma Bahena MD [facility] CPT-4: 93824 03/09/2015 ([id number]) 15976 EST. PATIENT, LEVEL IV Diagnosis: HEMATURIA NOS[ICD9: 599.70] Diagnosis: Atrial fibrillation[ICD9: 427.31] Diagnosis: HYPOTHYROIDISM[ICD9: 244.9] Karma Bahena MD, [facility] CPT-4: 99014 10/30/2014 ([id number]) 47009 EST. PATIENT, LEVEL IV Diagnosis: Atrial fibrillation[ICD9: 427.31] Diagnosis: ALLERGIC RHINITIS[ICD9: 477.9] Diagnosis: Need for pneumococcal vaccine[ICD9: V03.82] Diagnosis: Osteoarthritis[ICD9: 715.90] Diagnosis: Osteoporosis[ICD9: 733.00] Karma Bahena MD, [facility] CPT-4: 96139 07/11/2014 ([id number]) 73657 EST. PATIENT, LEVEL III Diagnosis: Urge incontinence[ICD9: 788.31] Diagnosis: Dysuria[ICD9: 788.1] Karma Bahena MD [facility] CPT-4: 80332 05/20/2014 ([id number]) 41589 EST. PATIENT, LEVEL IV Diagnosis: Atrial fibrillation[ICD9: 427.31] Diagnosis: Hematuria[ICD9: 599.70] Diagnosis: Dysuria[ICD9: 788.1] Diagnosis: ESSENTIAL HYPERTENSION[ICD9: 401.9] Karma Bahena MD [facility] CPT- 4: 47048 04/29/2014 ([id number]) 38583 EST. PATIENT, LEVEL IV Diagnosis: ESSENTIAL HYPERTENSION[ICD9: 401.9] Diagnosis: ALLERGIC RHINITIS[ICD9: 477.9] Karma Bahena MD [facility] CPT-4: 08000 03/20/2014 ([id number]) 90757 EST. PATIENT, LEVEL IV Diagnosis: ESSENTIAL HYPERTENSION[ICD9: 401.9] Diagnosis: ATRIAL FIBRILLATION[ICD9: 427.31] Diagnosis: Irritable bowel[ICD9: 564.1] Karma Bahena MD [facility] CPT-4: 08742 03/05/2014 ([id number]) 42098 EST. PATIENT, LEVEL IV Diagnosis: Esophageal reflux[ICD9: 530.81] Diagnosis: DIARRHEA[ICD9: 787.91] Diagnosis: ABDOM PAIN NOS SITE[ICD9: 789.00] Karma Bahena MD [facility] CPT- 4: 35981 01/29/2014 ([id number]) 14066 EST. PATIENT, LEVEL III Diagnosis: Irritable bowel[ICD9: 564.1] Diagnosis: DIARRHEA[ICD9: 787.91] Laura Bahena MD [facility] CPT-4: 23678 01/14/2014 ([id number]) 18633 EST. PATIENT, LEVEL IV Diagnosis: ESSENTIAL HYPERTENSION[ICD9: 401.9] Diagnosis: ATRIAL FIBRILLATION[ICD9: 427.31] Diagnosis: URGE INCONTINENCE[ICD9: 788.31] Diagnosis: MALAISE AND FATIGUE[ICD9: 780.79] Diagnosis: Dyspnea[ICD9: 786.09] Karma Bahena MD [facility] CPT-4: 06916 12/25/2013 ([id number]) 18481 EST. PATIENT, LEVEL IV Diagnosis: ESSENTIAL HYPERTENSION[SNOMED: 38200967] Diagnosis: ATRIAL FIBRILLATION[ICD9: 427.31] Diagnosis: Abdominal pain[ICD9: 789.00] Diagnosis: ESOPHAGEAL REFLUX[ICD9: 530.81] Karma Bahena MD [facility] CPT-4: 15427 11/27/2013 ([id number]) 07482 EST. PATIENT, LEVEL IV Diagnosis: ESSENTIAL HYPERTENSION[SNOMED: 31541911] Diagnosis: ATRIAL FIBRILLATION[ICD9: 427.31] Diagnosis: Chronic osteoarthritis[ICD9: 715.90] Karma Bahena MD [facility] CPT- 4: 25503 09/12/2013 ([id number]) 29282 EST. PATIENT, LEVEL III Diagnosis: ESSENTIAL HYPERTENSION[SNOMED: 15015764] Diagnosis: Bruising[ICD9: 924.9] Diagnosis: ENCNTR LONG-RX USE NEC[ICD9: V58.69] Karma Bahena MD [facility] CPT- 4: 49591 08/15/2013 ([id number]) 39201 EST. PATIENT, LEVEL IV Diagnosis: ESSENTIAL HYPERTENSION[SNOMED: 48076884] Diagnosis: Hematuria[ICD9: 599.70] Diagnosis: Dysuria[ICD9: 788.1] Karma Bahena MD [facility] CPT-4: 98107 08/01/2013 ([id number]) 57837 EST. PATIENT, LEVEL III Diagnosis: UTI[ICD9: 599.0] Diagnosis: Hematuria[ICD9: 599.70] Laura Bahena MD [facility] CPT-4: 00404 07/01/2013 ([id number]) 50590 EST. PATIENT, LEVEL III Diagnosis: ATRIAL FIBRILLATION[ICD9: 427.31] Diagnosis: ESSENTIAL HYPERTENSION[SNOMED: 41155286] Karma Bahena MD [facility] CPT-4: 44545 05/29/2013 ([id number]) 70140 EST. PATIENT, LEVEL IV Diagnosis: Atrial fibrillation[ICD9: 427.31] Diagnosis: Encounter for monitoring digoxin therapy[ICD9: V58.83] Diagnosis: ESSENTIAL HYPERTENSION[SNOMED: 73341777] Karma Bahena MD [facility] CPT-4: 84248 05/15/2013 ([id number]) 06739 EST. PATIENT, LEVEL IV Diagnosis: ESSENTIAL HYPERTENSION[SNOMED: 55826194] Diagnosis: ATRIAL FIBRILLATION[ICD9: 427.31] Diagnosis: PALPITATIONS[ICD9: 785.1] Diagnosis: Dizziness and giddiness[ICD9: 780.4] Karma Bahena MD, [facility] CPT- 4: 00349 04/23/2013 ([id number]) 86181 EST. PATIENT, LEVEL III Diagnosis: OTHER CONSTIPATION[ICD9: 564.09] Diagnosis: ABDOM PAIN NOS SITE[ICD9: 789.00] Laura Bahena MD [facility] CPT- 4: 94706 03/21/2013 ([id number]) 98035 EST. PATIENT, LEVEL IV Diagnosis: ESSENTIAL HYPERTENSION[SNOMED: 10593656] Diagnosis: Atrial fibrillation[ICD9: 427.31] Karma Bahena MD, [facility] CPT- 4: 53177 01/16/2013 ([id number]) Miscellaneous no charge Diagnosis: CELLULITIS OF HAND[ICD9: 682.4] Karma Bahena MD [facility] CPT-4: 31665 12/19/2012 ([id number]) Miscellaneous no charge Diagnosis: ENCOUNTER FOR THERAPEUTIC DRUG MONITORING[ICD9: V58.83] Diagnosis: CELLULITIS OF HAND[ICD9: 682.4] Karma Bahena MD [facility] CPT-4: 77013 12/14/2012 Miscellaneous no charge Diagnosis: CELLULITIS OF HAND[ICD9: 682.4] Karma Bahena MD [facility] CPT-4: 95049 12/12/2012 57281 EST. PATIENT, LEVEL II Diagnosis: CELLULITIS OF HAND[ICD9: 682.4] Diagnosis: ENCNTR LONG-RX USE NEC[ICD9: V58.69] Diagnosis: LONG-TERM USE ANTICOAGUL[ICD9: V58.61] Karma Bahena MD, [facility] CPT-4: 65502 12/11/2012 ([id number]) 83413 EST. PATIENT, LEVEL III Diagnosis: CELLULITIS OF HAND[ICD9: 682.4] Karma Bahena MD [facility] CPT-4: 43347 12/10/2012 ([id number]) 06918 EST. PATIENT, LEVEL IV Diagnosis: Elevated digoxin level[ICD9: 796.0] Diagnosis: ATRIAL FIBRILLATION[ICD9: 427.31] Diagnosis: Inflammatory arthritis[ICD9: 714.9] Karma Bahena MD [facility] CPT- 4: 53116 10/30/2012 (26053) 67041 EST. PATIENT, LEVEL IV Diagnosis: Atrial fibrillation[ICD9: 427.31] Diagnosis: Anticoagulant long-term use[ICD9: V58.61] Diagnosis: ESSENTIAL HYPERTENSION[SNOMED: 58477130] Karma Bahena MD [facility] CPT-4: 14895 08/08/2012 ([id number]) 51085 EST. PATIENT, LEVEL IV Diagnosis: ABDOM PAIN NOS SITE[ICD9: 789.00] Diagnosis: Constipation - functional[ICD9: 564.09] Diagnosis: EDEMA[ICD9: 782.3] Diagnosis: ATRIAL FIBRILLATION[ICD9: 427.31] Karma Bahena MD [facility] CPT- 4: 17677 07/11/2012 ([id number]) 52123 EST. PATIENT, LEVEL III Diagnosis: Cystocele[ICD9: 618.01] Diagnosis: Rectocele[ICD9: 618.04] Karma Bahena MD [facility] CPT-4: 48036 05/08/2012 (77653) 51975 EST. 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 PATIENT, LEVEL IV Diagnosis: ATRIAL FIBRILLATION[ICD9: 427.31] Diagnosis: URGE INCONTINENCE[ICD9: 788.31] Diagnosis: MALAISE AND FATIGUE[ICD9: 780.79] Diagnosis: Dyspnea[ICD9: 786.09] Karma Bahena MD [facility] CPT-4: 27196 02/20/2012 60390 EST. PATIENT, LEVEL IV Diagnosis: Hematuria[ICD9: 599.70] Diagnosis: Vaginal yeast infection[ICD9: 112.1] Diagnosis: ATRIAL FIBRILLATION[ICD9: 427.31] Laura Bahena MD [facility] CPT- 4: 42965 02/13/2012 (84301) 61436 EST. PATIENT, LEVEL IV Diagnosis: Atrial fibrillation[ICD9: 427.31] Diagnosis: Anticoagulation goal of INR 2 to 3[ICD9: V58.83] Diagnosis: Urinary incontinence, urge[ICD9: 788.31] Diagnosis: ESSENTIAL HYPERTENSION[SNOMED: 62100807] Karma Bahena MD [facility] CPT-4: 09287 02/01/2012 ([id number]) 53918 EST. PATIENT, LEVEL IV Diagnosis: Atrial fibrillation[ICD9: 427.31] Diagnosis: Anticoagulant long-term use[ICD9: V58.61] Diagnosis: ESSENTIAL HYPERTENSION[SNOMED: 44320205] Karma Bahena MD [facility] CPT-4: 42151 2012 25433 EST. PATIENT, LEVEL IV Diagnosis: UTI[ICD9: 599.0] Diagnosis: ESSENTIAL HYPERTENSION[SNOMED: 60840946] Diagnosis: MALAISE AND FATIGUE[ICD9: 780.79] Diagnosis: Esophageal reflux[ICD9: 530.81] Karma Bahena MD [facility] CPT-4: 54288 12/01/2011 ([id number]) 21536 EST. PATIENT, LEVEL IV Diagnosis: UTI (urinary tract infection)[ICD9: 599.0] Diagnosis: ESSENTIAL HYPERTENSION[SNOMED: 61077725] Diagnosis: URGE INCONTINENCE[ICD9: 788.31] Karma Bahena MD, [facility] CPT-4: 10142 11/23/2011 ([id number]) 64732 EST. PATIENT, LEVEL IV Diagnosis: ESSENTIAL HYPERTENSION[SNOMED: 02380722] Diagnosis: IMPACTED CERUMEN[ICD9: 380.4] Diagnosis: MALAISE AND FATIGUE[ICD9: 780.79] Diagnosis: EDEMA[ICD9: 782.3] Karma Bahena MD, [facility] CPT-4: 11924 10/03/2011 55886 EST. PATIENT, LEVEL IV Diagnosis: ESSENTIAL HYPERTENSION[SNOMED: 56312130] Diagnosis: Generalized osteoarthritis[ICD9: 715.09] Diagnosis: OSTEOPOROSIS[ICD9: 733.00] Karma Bahena MD, [facility] CPT-4: 48174 08/08/2011 83502 EST. PATIENT, LEVEL IV Diagnosis: Muscle cramp[ICD9: 729.82] Diagnosis: Torticollis[ICD9: 723.5] Diagnosis: Rash[ICD9: 782.1] Karma Bahena MD, [facility] CPT-4: 26363 05/09/2011 05515 EST. PATIENT, LEVEL IV Diagnosis: Leg cramps, sleep related[ICD9: 327.52] Diagnosis: Underweight[ICD9: 783.22] Karma Bahena MD, [facility] CPT-4: 54139 03/29/2011 31294 EST. PATIENT, LEVEL IV Diagnosis: UTI[ICD9: 599.0] Diagnosis: Urge incontinence[ICD9: 788.31] Diagnosis: Loss of weight[ICD9: 783.21] Diagnosis: Palpitations[ICD9: 785.1] Diagnosis: Peripheral neuropathy, idiopathic[ICD9: 356.9] Karma Bahena MD, [facility] CPT-4: 85618 03/15/2011 Plan of Care Planned Activity Notes Codes Status Date Appointment: Karma Bahena WPtel: [address] [place], [place] [id number] (15 min) Moderate 03/14/2018 Visit Plan: Hypertension [...] of control. 01/31/2018 Appointment: Katharine Dai WPtel: [address] [place], [place] [id number] [facility] - Annual Wellness Visit 01/31/2018 Patient [...] spray. 12/14/2017 Appointment: Karma Bahena WPtel: [phone] [facility] (15 min) Moderate 12/14/2017 Patient Education: Patient [...] spray. 12/07/2017 Appointment: Katharine Dai WPtel: [phone] [facility] (15 min) Moderate 12/07/2017 Patient [...] control. 11/14/2017 Appointment: Karma Bahena WPtel: [phone] [facility] (15 min) Moderate 11/14/2017 Patient Education: Patient [...] today. 03/27/2017 Appointment: Karma Bahena WPtel: [phone] (15 min) Moderate 03/27/2017 Patient Education: Patient [...] surrogate. 01/23/2017 Appointment: Katharine Dai WPtel: [phone] [facility] [place] [address] - Annual Wellness Visit 01/23/2017 Patient Education: [...] uncontrolled. 01/19/2017 Appointment: Karma Bahena WPtel: [phone] [facility] (15 min) Moderate 01/19/2017 Patient Education: Patient Medication Summary Completed 01/19/2017 Care Plan: Referral Order SNOMED-CT : [id number] Pending 01/19/2017 Appointment: Karma Bahena WPtel: [phone] [facility] (15 min) Moderate 01/04/2017 Appointment: Karma Bahena WPtel: [phone] [facility]66[facility] (15 min) Moderate 12/28/2016 Visit Plan: ALG-stmfh-axi zpack-call if symptoms do not resolve or if any worse. Patient verbalized understanding of plan. 11/29/2016 Appointment: Laura Colin WPtel: [phone] (15 min) Moderate 11/29/2016 Patient Education: Patient [...] pharmacy. 11/23/2016 Appointment: Katharine Dai WPtel: [phone] [facility] [place] (15 min) Moderate 11/23/2016 Patient Education: Patient Medication Summary Completed 11/23/2016 Visit Plan: Pharyngitis-Discussed natural and expected course of this diagnosis and need to alert me if symptoms do not follow expected course, or if any worse. Recommended salt water gargles as needed for pain. Ty lenol/motrin as needed for fever/discomfort. 11/21/2016 Appointment: Laura Colin WPtel: [phone] [phone] [place] (15 min) Moderate 11/21/2016 [...] symptoms. 11/08/2016 Appointment: Karma Bahena WPtel: [facility] [place] (10 min) Simple 11/08/2016 Patient Education: [...] bactroban, etc. 11/02/2016 Appointment: Karma Bahena WPtel: [phone] [facility] [place] (15 min) Moderate 11/02/2016 Appointment: Nurse Visit 11/02/2016 Patient Education: Patient Medication Summary Completed 11/02/2016 Appointment: Nurse Visit 10/31/2016 Visit Plan: Laceration-right forearm- Pt was instructed to keep the wound clean, cleanse with sterile saline, use bactroban ointment, call if redness, pustular drainage, or any other acute concerns. Follow up Monday for dressing changes. 10/27/2016 Appointment: Laura Colin WPtel: [phone] [phone] [place] (30 min) Complex 10/27/2016 [...] symptoms. 08/31/2016 Appointment: [phone] [place] [place] (15 min) Moderate 08/31/2016 Patient Education: [...] swelling. 07/27/2016 Appointment: Kar[facility]hen[phone] [place] [place] (15 min) Moderate 07/27/2016 Patient Education: [...] lasix 06/23/2016 Appointment: Karma Bahena WPtel: [facility] [place] (15 min) Moderate 06/23/2016 Patient Education: Patient Medication Summary Completed 06/23/2016 Patient Education: Hypertension Completed 06/23/2016 Visit Plan: Edema - with Dyspnea - RX for laxis and compression socks - pt to call if not improving. 06/09/2016 Appointment: Karma Bahena WPtel: [facility] [place] [id number] (15 min) Moderate 06/09/2016 Patient Education: Patient Medication Summary Completed 06/09/2016 Visit Plan: Abdominal pain and rectal itching - recommended pt to use betamethasone on vaginal/rectal region, monitor symptoms call if not improving. Continue with beano and simethicone 05/25/2016 Appointment: Karma Bahena WPtel: [facility] [id number] [id number] [place] (15 min) Moderate 05/25/2016 Patient Education: Patient Medication Summary Completed 05/25/2016 Care Plan: [employer] : [id number] Pending 05/20/2016 Visit Plan: Abdominal distension - use simethicone four times daily - after meals - if it does not help - in the next two weeks - call the office and we will do a ct scan of the abdomen and pelvis 05/17/2016 Appointment: Karma Bahena WPtel: [facility] [place] (15 min) Moderate 05/17/2016 Patient Education: [...] ointment 03/24/2016 Appointment: Karma Bahena WPtel: [phone] [facility] (30 min) Complex 03/24/2016 Patient Education: Patient [...] spray. 12/21/2015 Appointment: [phone] [place] (30 min) [...] uncontrolled. 11/03/2015 Appointment: Karma Bahena WPtel: [facility] (15 min) Moderate 11/03/2015 Patient Education: Patient [...] Hypertension Completed 09/01/2015 Appointment: Karma Bahena WPtel: [address] [place], [place] [address] (15 min) Moderate 07/13/2015 Visit Plan: Hematuria/Urethritis [...] 05/13/2015 Care Plan: Referral Order SNOMED-CT : [id number] Ordered 05/08/2015 Visit Plan: Atrial Fibrillation - [...] Collins. 05/07/2015 Appointment: Karma Bahena WPtel: [phone] (15 min) Moderate 05/07/2015 Patient Education: Patient [...] Appointment: Karma Bahena WPtel: [facility] Follow up 10/30/2014 Patient Education: Patient Medication Summary Completed 10/30/2014 Appointment: Karma Bahena WPtel: [facility] Follow up 07/22/2014 Visit Plan: Atrial Fibrillation [...] in hospital. 07/11/2014 Appointment: Karma Bahena WPtel: [phone] [facility] Sick 07/11/2014 Patient Education: Patient Medication Summary Completed 07/11/2014 Appointment: Karma Bahena WPtel: [address] [place] [address] Follow up 07/07/2014 Visit Plan: Urinary incontinence [...] this three times weekly. 05/20/2014 Appointment: Karma Bahenatel: [facility] Follow up 05/20/2014 Patient Education: Patient Medication Summary Completed 05/20/2014 Appointment: Karma Bahenatel: [address] [place], [place] [id number] Lab Draw 05/14/2014 Patient Education: Patient Medication [...] Incontinence - recommended vesicare. 04/29/2014 Appointment: Karma Bahenal: [facility] Follow up 04/29/2014 Patient Education: Patient Medication [...] spray. 03/20/2014 Appointment: Karma Bahena WPtel: [phone] [facility] 03/20/2014 Patient Education: Patient Medication Summary Completed [...] uncontrolled. 03/05/2014 Appointment: Karma Bahena WPtel: [facility] Follow up 03/05/2014 Patient Education: Patient Medication [...] report. 01/29/2014 Appointment: Karma Bahena WPtel: [phone] [facility] Follow up 01/29/2014 Patient Education: Patient Medication [...] exposure,and dyspnea on exertion - will ask [place] Patient do an overnight oxygen study on [place] as she has cardiac history, weight loss, and nocturnal hypoxemia may be a part of her weight loss and fatigue. 12/25/2013 Appointment: Karma Bahena WPtel: [phone] Follow up 12/25/2013 Patient Education: Patient Medication [...] twice daily. 11/27/2013 Appointment: Karma Bahena WPtel: [address] [place], [place] [id number] Follow up 11/27/2013 Patient Education: Patient Medication [...] at home. 09/12/2013 Appointment: Karma Bahena WPtel: [facility] [place] Follow up 09/12/2013 Patient Education: Patient Medication Summary Completed 09/12/2013 Patient Education: Hypertension Completed 09/12/2013 Appointment: Karma Bahena WPtel: [address] [place], [place] [id number] [place] Follow up 08/21/2013 Visit Plan: Hypertension [...] PT/INR 08/15/2013 Appointment: Karma Bahena WPtel: [phone] [place] Follow up 08/15/2013 Patient Education: Patient [...] urethra. 08/01/2013 Appointment: Karma Bahena WPtel: [phone] [place] Follow up 08/01/2013 Patient Education: Patient Medication Summary Completed 08/01/2013 Patient Education: Hypertension Completed 08/01/2013 Appointment: [facility]Ptel: [phone] [place] Lab Draw 07/29/2013 Patient Education: Patient Medication Summary Completed 07/29/2013 Visit Plan: Osteoporosis-prolia on june 25-patient to let Dr Hansen know 07/01/2013 Appointment: Laura Colin [facility]Ptel: [phone] Follow up 07/01/2013 Appointment: Karma Bahena WPtel: [facility] [place] Follow up 07/01/2013 Patient Education: Patient Medication Summary Completed 07/01/2013 Appointment: Josef Karma WPtel: [address] [place] [address] [place] Follow up 06/25/2013 Appointment: Karma Bahena WPtel: [facility] [place] Lab Draw 06/20/2013 Patient Education: Patient Medication Summary Completed 06/20/2013 Appointment: Karma Bahena WPtel: [facility] [place] Lab Draw 06/19/2013 Visit Plan: Atrial [...] Appointment: Karma Bahena WPtel: [facility] Follow up 05/29/2013 Patient [...] home. 05/15/2013 Appointment: Karma Bahena WPtel: [phone] [facility] Other 05/15/2013 Patient Education: Patient Medication Summary [...] today. 04/23/2013 Appointment: Karma Bahena WPtel: [phone] [facility] Other 04/23/2013 Patient Education: Patient Medication Summary [...] Appointment: Laura Colin WPtel: [phone] Follow up 03/21/2013 Patient Education: [...] becoming uncontrolled. 01/16/2013 Appointment: Karma Bahena WPtel: [facility] Follow up 01/16/2013 Patient Education: Patient Medication Summary Completed 01/16/2013 Patient Education: Hypertension Completed 01/16/2013 Visit Plan: Wound Instructions - Pt was instruced to keep the wound clean, wash with antibacterial soap, use triple antibiotic ointment, call if redness, pustular drainage, or any other acute conerns. 12/19/2012 Appointment: Karma Bahena WPtel: [address] [place], [place] [phone] Other 12/19/2012 Patient Education: Patient Medication Summary Completed 12/19/2012 Patient Education: Patient Medication Summary Completed 12/17/2012 Visit Plan: Cellulitis - improved- monitor symptoms - need to check handon Monday morning. 12/14/2012 Appointment: Karma Bahena WPtel: [address] [place], [place] [phone] Follow up 12/14/2012 Patient Education: Patient Medication Summary Completed 12/14/2012 Visit Plan: Cellulitis - improved- monitor symptoms - need to check handon Monday morning. 12/12/2012 Appointment: Karma Bahena WPtel: [address] [place], [place] [phone] Work-in 12/12/2012 Patient Education: Patient Medication Summary [...] warmth, discharge. 12/10/2012 Appointment: Karma Bahena WPtel: [address] [place], [place] [id number] Other 12/10/2012 Patient Education: Patient Medication Summary [...] uncontrolled. 10/30/2012 Appointment: Karma Bahena WPtel: [facility] Follow up 10/30/2012 Patient Education: Patient Medication Summary Completed 10/30/2012 Appointment: Laura Colin WPtel: [phone] [phone] Lab Draw 09/13/2012 Patient Education: [...] 3.5. 08/08/2012 Appointment: Karma Bahena WPtel: [facility] Other 08/08/2012 Patient Education: [...] this regimen. 07/11/2012 Appointment: Karma Bahena WPtel: 101 [facility] swelling, leg edema Other 07/11/2012 Patient Education: [...] medication vaginally. 05/08/2012 Appointment: Karma Bahena WPtel: [phone] [facility] Follow up 05/08/2012 Patient Education: Patient Medication [...] hospitalization. 04/18/2012 Appointment: Karma Bahena WPtel: [phone] [facility] Follow up 04/18/2012 Patient Education: Patient Medication Summary Completed 04/18/2012 Patient Education: High Blood Pressure: Essential Hypertension Completed 04/18/2012 Appointment: Karma Bahena WPtel: [phone] [facility] [place] Follow up 04/09/2012 Appointment: Karma Bahena WPtel: [phone] [facility] [place] Lab Draw 04/04/2012 Appointment: Laura Colin WPtel: [phone] [phone] [place] Lab Draw 03/19/2012 Visit Plan: Abdominal [...] Completed 03/13/2012 Appointment: Karma Bahena WPtel: 1011 [facility] [place] Lab Draw 03/08/2012 Patient Education: Patient [...] Appointment: Karma Bahena WPtel: [facility] [place] Other 02/20/2012 Patient Education: Patient Medication [...] uncontrolled. 02/13/2012 Appointment: Laura Colin WPtel: [facility] [place] Other 02/13/2012 Patient Education: Patient Medication Summary Completed 02/13/2012 Appointment: Karma Bahena WPtel: [facility] [place] Lab Draw 02/07/2012 Visit Plan: Atrial [...] medication. 02/01/2012 Appointment: Karma Bahena WPtel: [facility] Other 02/01/2012 Patient Education: Patient Medication Summary Completed 02/01/2012 Patient Education: High Blood Pressure: Essential Hypertension Completed 02/01/2012 Appointment: Karma Bahena WPtel: [facility] Lab Draw 01/17/2012 Visit Plan: Atrial Fibrillation [...] home. 2012 Appointment: Karma Bahena WPtel: [phone] [facility] Other 2012 Patient Education: Patient Medication Summary Completed 2012 Patient Education: High Blood Pressure: Essential Hypertension Completed 2012 Appointment: Karma Bahena WPtel: [facility] Follow up 12/20/2011 Visit Plan: Dicyclomine up [...] emergency room. 12/01/2011 Appointment: Karma Bahena WPtel: [facility] Other 12/01/2011 Patient Education: Patient Medication Summary [...] after acute infection resolves. 11/23/2011 Appointment: Laura Colinl: [phone] [facility] Other 11/23/2011 Patient Education: Patient Medication Summary Completed 11/23/2011 Patient Education: High Blood Pressure: Essential Hypertension Completed 11/23/2011 Visit Plan: Cerumen Impaction - The impacted cerumen was removed with the use of either ear currette alone or in combination with ear curette and water pick. The patient tolerated the procedure without incident and had improvement in hearing 10/17/2011 Appointment: Robert Colinie WPtel: [phone] [phone] Other 10/17/2011 Patient Education: Patient Medication Summary [...] irrigation. 10/03/2011 Appointment: Karma Bahena WPtel: [facility] Other 10/03/2011 Patient Education: Patient Medication Summary [...] is evidence. 08/08/2011 Appointment: Karma Bahena WPtel: [address] [place], [place] [phone] Other 08/08/2011 Patient Education: Patient Medication Summary Completed 08/08/2011 Patient Education: High Blood Pressure: Essential Hypertension Completed 08/08/2011 Visit Plan: Muscle cramps - the cramps are a little better, continue with the Diltiazem and it is okay to use the over the counter supplement with quinine - but use it sparingly. For the rash, use the prescripti on the commercial drone pilot prescribed for the itching , call if the rash is not improved. Torticollis - continue with physical therapy, call if the neck muscles do not continue to show improvement. 05/09/2011 Appointment: Karma Bahena WPtel: [address] [place] [address] Other 05/09/2011 Patient Education: Patient Medication Summary [...] water aerobics. 03/29/2011 Appointment: Karma Bahena WPtel: [address] [place], [place] [phone] Other 03/29/2011 Patient Education: Patient Medication Summary Completed 03/29/2011 Appointment: Karma Bahena WPtel: [address] [place], [place] [id number] Other 03/17/2011 Visit Plan: UTI - UA negative. Urge incontinence- restart on the vesicare- at 5 mg. Continue to avoid caffinated foods/fluids. Peripheral Neuropathy - per calibration engineer report - Continue with the metanex. Loss of weight - WEIGHT CHECK IN 2 WKS. Palpitations- likely stress induced. If the symptoms worsen, call the office. 03/15/2011 Appointment: Karma Bahena WPtel: [address] [place] [address] Follow up 03/15/2011 Patient Education: Patient Medication [...] Jeannie and romina- recommended cardiac rehab. . Hypertension [...] with compression and prn use of lasix rita hen hearing aide drying beads - [...] based on previous levels of control. . UTI - UA negative. Urge incontinence- restart on the vesicare- at 5 mg. Continue to avoid caffinated foods/fluids. Peripheral Neuropathy - per calibration engineer report - Continue with the metanex. [...] use betamethasone ointment on rectal tissue . Hypertension - well controlled - continue [...] given high dose flu shot today. . Cyst - epidermal cyst - pt [...] - need to check handon Monday morning. Bowel Regimen stool softener - four at [...] to go to the emergency room. . Atrial Fibrillation - pt on chronic [...] For the rash, use the prescription the commercial drone pilot prescribed for the itching , call if [...] change in blood pressure readings at home. Miralax- take 1/2 dose daily, and may [...] symptoms not improved on this regimen. . [id number] zpack-call if symptoms do not resolve or [...] coumadin and check a PT/INR ON THE OLIVIA AFTER SHE STARTS THE COUMADIN, THEN AGAIN [...] consistency, recheck at follow up appointment. . Cerumen Impaction - The impacted cerumen was removed with the use of either ear currette alone or in combination with ear curette and water pick. The patient tolerated the procedure without incident and had improvement in hearing switch to tatiana . URI/ALLERGIES- recommended pt [...] nasal steroid allergy spray. . Cellulitis - improved- monitor symptoms - need to check handon Monday morning. . Hypertension - well controlled - continue [...] pt to call if not improving. . Wound Instructions - Pt was instruced to keep the wound clean, wash with antibacterial soap, use triple antibiotic ointment, call if redness, pustular drainage, or any other acute conerns. . ua obtained, no need for culture at this time. . Rocephin 500mg IM . Hypertension - well controlled - continue [...] be sent to cardiology. Flu shot today. pt is to stop her omeprazole and [...] for INR is between 2.0 and 3.5. IF HEART RATE UNDER 60 CONSISTENTLY TAKE [...] heart rate is becoming uncontrolled. . Abdominal pain and rectal itching - recommended pt to use betamethasone on vaginal/rectal region, monitor symptoms call if not improving. Continue with beano and simethicone Elevated digoxin level - pt was recommended [...] if pneumonia vaccine was given in hospital. pt to have esr, crp, tsh, free [...] exposure,and dyspnea on exertion - will ask [facility] Patient do an overnight oxygen study on [place] as she has cardiac history, weight loss, and nocturnal hypoxemia may be a part of her weight loss and fatigue. . Atrial Fibrillation - pt on chronic [...] the treatment when you get back from [place] - will also ask him about doing [...] any worse. RX sent to patient's pharmacy. If using nasal spray, instructions as follows: [...]
--- OUTSIDE RECORDS SUMMARY | 2018-12-10 22:12 | XMS REPORT | Continuity of Care Document ---
Author Organization Unknown Address Unknown Allergies Active Description Code Type Severity Reaction Onset Reported/Identified Relationship to Patient Clinical Status Yes triamcinolone acetonide [id number] Drug Allergy Unknown N/A 03/13/2012 Yes bacitracin [id number] Drug Allergy Unknown N/A 10/06/2015 Yes Bacitracin Zinc [id number] Drug Allergy Unknown N/A 10/06/2015 Yes benzalkonium chloride [id number] Drug Allergy Unknown N/A 10/06/2015 Yes gramicidin D [id number] Drug Allergy Unknown N/A 10/06/2015 Yes hydrocortisone [id number] Drug Allergy Unknown N/A 10/06/2015 Yes lidocaine [id number] Drug Allergy Unknown N/A 10/06/2015 Yes meclizine [id number] Drug Allergy Unknown N/A 10/06/2015 Yes neomycin [id number] Drug Allergy Unknown N/A 10/06/2015 Yes neomycin sulfate [id number] Drug Allergy Unknown N/A 10/06/2015 Yes nystatin [id number] Drug Allergy Unknown N/A 10/06/2015 Yes polymyxin B [id number] Drug Allergy Unknown N/A 10/06/2015 Yes polymyxin B sulfate [id number] Drug Allergy Unknown N/A 10/06/2015 Medications There is no data. Problems Date Dx Coded Attending Type Code Diagnosis Diagnosed By 06/08/1355 ROBERT WIGGINS APRN Ot M81.0 AGE-RELATED OSTEOPOROSIS W/O CURRENT PAT 12/01/2011 Ot 592.0 CALCULUS OF KIDNEY 12/01/2011 Ot 786.05 SHORTNESS OF BREATH 12/01/2011 Ot 789.06 ABDOMINAL PAIN, EPIGASTRIC 12/01/2011 Ot 791.9 ABN URINE FINDINGS NEC 12/26/2011 Ot 244.9 HYPOTHYROIDISM NOS 12/26/2011 Ot 275.2 DIS MAGNESIUM METABOLISM 12/26/2011 Ot 276.1 HYPOSMOLALITY 12/26/2011 Ot 300.00 ANXIETY STATE NOS 12/26/2011 Ot 333.94 RESTLESS LEGS SYNDROME 12/26/2011 Ot 401.9 HYPERTENSION NOS 12/26/2011 Ot 427.31 ATRIAL FIBRILLATION 12/26/2011 Ot 455.3 EXT HEMORRHOID W/O COMPL 12/26/2011 Ot 530.81 ESOPHAGEAL REFLUX 12/26/2011 Ot 564.1 IRRITABLE BOWEL SYNDROME 12/26/2011 Ot 733.00 OSTEOPOROSIS NOS 12/26/2011 Ot 780.4 DIZZINESS AND GIDDINESS 12/26/2011 Ot 788.31 URGE INCONTINENCE 12/26/2011 Ot E944.3 ADV EFF SALURETICS 03/27/2012 Ot 041.49 OTHER AND UNSPECIFIED ESCHERICHIA COLI [ 03/27/2012 Ot 244.9 HYPOTHYROIDISM NOS 03/27/2012 Ot 275.2 DIS MAGNESIUM METABOLISM 03/27/2012 Ot 285.9 ANEMIA NOS 03/27/2012 Ot 327.52 SLEEP RELATED LEG CRAMPS 03/27/2012 Ot 356.9 IDIO PERIPH NEURPTHY NOS 03/27/2012 Ot 365.9 GLAUCOMA NOS 03/27/2012 Ot 401.9 HYPERTENSION NOS 03/27/2012 Ot 427.31 ATRIAL FIBRILLATION 03/27/2012 Ot 530.81 ESOPHAGEAL REFLUX 03/27/2012 Ot 557.0 AC VASC INSUFF INTESTINE 03/27/2012 Ot 560.1 PARALYTIC ILEUS 03/27/2012 Ot 560.9 INTESTINAL OBSTRUCT NOS 03/27/2012 Ot 599.0 URIN TRACT INFECTION NOS 03/27/2012 Ot 715.90 OSTEOARTHROS NOS-UNSPEC 03/27/2012 Ot 733.00 OSTEOPOROSIS NOS 03/27/2012 Ot 788.31 URGE INCONTINENCE 03/27/2012 Ot 997.49 OTHER DIGESTIVE SYSTEM COMPLICATIONS 03/27/2012 Ot V58.61 ANTICOAGULANTS,LT,CURRENT USE 04/05/2012 Ot 244.9 HYPOTHYROIDISM NOS 04/05/2012 Ot 276.1 HYPOSMOLALITY 04/05/2012 Ot 285.9 ANEMIA NOS 04/05/2012 Ot 327.52 SLEEP RELATED LEG CRAMPS 04/05/2012 Ot 356.9 IDIO PERIPH NEURPTHY NOS 04/05/2012 Ot 365.9 GLAUCOMA NOS 04/05/2012 Ot 401.9 HYPERTENSION NOS 04/05/2012 Ot 427.31 ATRIAL FIBRILLATION 04/05/2012 Ot 518.0 PULMONARY COLLAPSE 04/05/2012 Ot 530.81 ESOPHAGEAL REFLUX 04/05/2012 Ot 715.90 OSTEOARTHROS NOS-UNSPEC 04/05/2012 Ot 733.00 OSTEOPOROSIS NOS 04/05/2012 Ot 792.1 ABN FIND-STOOL CONTENTS 04/05/2012 Ot V57.1 PHYSICAL THERAPY NEC 04/05/2012 Ot V58.61 ANTICOAGULANTS,LT,CURRENT USE 04/05/2012 Ot V58.75 AFTERCARE POST SURGERY TEETH,ORAL CAVITY 07/06/2012 Ot V58.61 ANTICOAGULANTS,LT,CURRENT USE 07/06/2012 Ot V58.83 ENCOUNTER FOR THERAPEUTIC DRUG MONITORIN 08/01/2012 Ot 401.9 HYPERTENSION NOS 08/01/2012 Ot 427.31 ATRIAL FIBRILLATION 08/01/2012 Ot V58.69 OTH MED,LT,CURRENT USE 10/22/2012 Ot V58.61 ANTICOAGULANTS,LT,CURRENT USE 10/22/2012 Ot V58.83 ENCOUNTER FOR THERAPEUTIC DRUG MONITORIN 11/27/2012 BLANCA HUITRON BOATBUILDER APPRENTICE WOOD Ot 401.9 HYPERTENSION NOS 11/27/2012 BLANCA HUITRON BOATBUILDER APPRENTICE WOOD Ot 427.31 ATRIAL FIBRILLATION 11/27/2012 BLANCA HUITRON BOATBUILDER APPRENTICE WOOD Ot V58.69 OTH MED,LT,CURRENT USE 01/21/2013 JUNIOR SELLERS MD Ot V58.61 ANTICOAGULANTS,LT,CURRENT USE 01/21/2013 JUNIOR SELLERS MD Ot V58.83 ENCOUNTER FOR THERAPEUTIC DRUG MONITORIN 04/15/2013 BLANCA HUITRON BOATBUILDER APPRENTICE WOOD Ot 401.9 HYPERTENSION NOS 04/15/2013 BLANCA HUITRON BOATBUILDER APPRENTICE WOOD Ot 427.31 ATRIAL FIBRILLATION 04/15/2013 BLANCA HUITRON BOATBUILDER APPRENTICE WOOD Ot V58.69 OTH MED,LT,CURRENT USE 04/18/2013 JUNIOR SELLERS MD Ot V58.61 ANTICOAGULANTS,LT,CURRENT USE 04/18/2013 JUNIOR ESLLERS MD Ot V58.83 ENCOUNTER FOR THERAPEUTIC DRUG MONITORIN 05/11/2013 ALEJANDRO GARCIA MD Ot 427.31 ATRIAL FIBRILLATION 05/11/2013 ALEJANDRO GARCIA MD Ot 786.05 SHORTNESS OF BREATH 05/11/2013 ALEJANDRO GARCIA MD Ot 786.09 RESPIRATORY ABNORM NEC 05/11/2013 ALEJANDRO GARCIA MD Ot V58.61 ANTICOAGULANTS,LT,CURRENT USE 05/27/2013 JUNIOR SELLERS MD Ot 427.31 ATRIAL FIBRILLATION 07/23/2013 JUNIOR SELLERS MD Ot 780.4 DIZZINESS AND GIDDINESS 07/23/2013 JUNIOR SELLERS MD Ot 785.1 PALPITATIONS 08/25/2013 JUNIOR SELLERS MD Ot V58.61 ANTICOAGULANTS,LT,CURRENT USE 08/25/2013 JUNIOR SELLERS MD Ot V58.69 OTH MED,LT,CURRENT USE 08/25/2013 JUNIOR SELLERS MD Ot V58.83 ENCOUNTER FOR THERAPEUTIC DRUG MONITORIN 10/27/2013 JUNIOR SELLERS MD Ot 244.9 HYPOTHYROIDISM NOS 10/27/2013 JUNIOR SELLERS MD Ot 272.4 HYPERLIPIDEMIA NEC/NOS 10/27/2013 JUNIOR SELLERS MD Ot 401.9 HYPERTENSION NOS 10/27/2013 JUNIOR SELLERS MD Ot 427.31 ATRIAL FIBRILLATION 10/27/2013 JUNIOR SELLERS MD Ot 733.00 OSTEOPOROSIS NOS 10/27/2013 JUNIOR SELLERS MD Ot V58.69 OTH MED,LT,CURRENT USE 01/27/2014 JUNIOR SELLERS MD Ot 244.9 HYPOTHYROIDISM NOS 01/27/2014 JUNIOR SELLERS MD Ot 272.4 HYPERLIPIDEMIA NEC/NOS 01/27/2014 JUNIOR SELLERS MD Ot 401.9 HYPERTENSION NOS 01/27/2014 JUNIOR SELLERS MD Ot 427.31 ATRIAL FIBRILLATION 01/27/2014 JUNIOR SELLERS MD Ot 733.00 OSTEOPOROSIS NOS 01/27/2014 JUNIRO SELLERS MD Ot V58.69 OTH MED,LT,CURRENT USE 02/24/2014 BLANCA HUITRON BOATBUILDER APPRENTICE WOOD Ot 787.91 DIARRHEA 04/28/2014 JUNIOR SELLERS MD Ot 244.9 HYPOTHYROIDISM NOS 04/28/2014 JUNIOR SELLERS MD Ot 272.4 HYPERLIPIDEMIA NEC/NOS 04/28/2014 JUNIOR SELLERS MD Ot 401.9 HYPERTENSION NOS 04/28/2014 JUNIOR SELLERS MD Ot 427.31 ATRIAL FIBRILLATION 04/28/2014 JUNIOR ESLLERS MD Ot 733.00 OSTEOPOROSIS NOS 04/28/2014 JUNIOR SELLESR MD Ot V58.69 OTH MED,LT,CURRENT USE 06/04/2014 MARLO GRAHAM, JUNIOR A Ot V76.12 07/01/2014 MARLO GRAHAM, JUNIOR A Ot 244.9 07/01/2014 MARLO GRAHAM, JUNIOR A Ot 272.4 07/01/2014 MARLO GRAHAM, JUNIOR A Ot 401.9 07/01/2014 MARLO GRAHAM, JUNIOR A Ot 427.31 07/01/2014 MARLO GRAHAM, JUNIOR A Ot 733.00 07/01/2014 MARLO GRAHAM, JUNIOR A Ot V58.69 08/03/2014 MARLO GRAHAM, JUNIOR A Ot 244.9 HYPOTHYROIDISM NOS 08/03/2014 MARLO GRAHAM, JUNIOR A Ot 272.4 HYPERLIPIDEMIA NEC/NOS 08/03/2014 MARLO GRAHAM, JUNIOR A Ot 401.9 HYPERTENSION NOS 08/03/2014 MARLO GRAHAM, JUNIOR A Ot 427.31 ATRIAL FIBRILLATION 08/03/2014 MARLO GRAHAM, JUNIOR A Ot 733.00 OSTEOPOROSIS NOS 08/03/2014 MARLO GRAHAM, JUNIOR A Ot V58.69 [facility],LT,CURRENT USE 08/18/2014 MARLO GRAHAM, JUNIOR A Ot 733.00 08/21/2014 MARLO GRAHAM, JUNIOR A Ot 244.9 08/21/2014 MARLO GRAHAM, JUNIOR A Ot 272.4 08/21/2014 MARLO GRAHAM, JUNIOR A Ot 401.9 08/21/2014 MARLO GRAHAM, JUNIOR A Ot 427.31 08/21/2014 MARLO GRAHAM, JUNIOR A Ot 733.00 08/21/2014 MARLO GRAHAM, JUNIOR A Ot V58.69 08/21/2014 MARLO GRAHAM, JUNIOR A Ot 244.9 08/21/2014 MARLO GRAHAM, JUNIOR A Ot 272.4 08/21/2014 MARLO GRAHAM, JUNIOR A Ot 401.9 08/21/2014 MARLO GRAHAM, JUNIOR A Ot 427.31 08/21/2014 MARLO GRAHAM, JUNIOR A Ot 733.00 08/21/2014 MARLO GRAHAM, JUNIOR A Ot V58.69 08/21/2014 MARLO GRAHAM, JUNIOR A Ot 244.9 08/21/2014 MARLO GRAHAM, JUNIOR A Ot 272.4 08/21/2014 MARLO GRAHAM, JUNIOR A Ot 401.9 08/21/2014 MARLO GRAHAM, JUNIOR A Ot 427.31 08/21/2014 MARLO GRAHAM, JUNIOR A Ot 733.00 08/21/2014 MARLO GRAHAM, JUNIOR A Ot V58.69 08/22/2014 MARLO GRAHAM, JUNIOR A Ot 244.9 08/22/2014 MARLO GRAHAM, JUNIOR A Ot 272.4 08/22/2014 MARLO GRAHAM, JUNIOR A Ot 401.9 08/22/2014 MARLO GRAHAM, JUNIOR A Ot 427.31 08/22/2014 MARLO GRAHAM, JUNIOR A Ot 733.00 08/22/2014 MARLO GRAHAM, JUNIOR A Ot V58.69 08/28/2014 MARLO GRAHAM, JUNIOR A Ot 733.00 09/02/2014 MARLO GRAHAM, JUNIOR A Ot 244.9 09/02/2014 MARLO GRAHAM, JUNIOR A Ot 272.4 09/02/2014 MARLO GRAHAM, JUNIOR A Ot 401.9 09/02/2014 MARLO GRAHAM, JUNIOR A Ot 427.31 09/02/2014 MARLO GRAHAM, JUNIOR A Ot 733.00 09/02/2014 MARLO GRAHAM, JUNIOR A Ot V58.69 10/07/2014 MARLO GRAHAM, JUNIOR A Ot 244.9 10/07/2014 MARLO GRAHAM, JUNIOR A Ot 272.4 10/07/2014 MARLO GRAHAM, JUNIOR A Ot 401.9 10/07/2014 MARLO GRAHAM, JUNIOR A Ot 427.31 10/07/2014 MARLO GRAHAM, JUNIOR A Ot 733.00 10/07/2014 MARLO GRAHAM, JUNIOR A Ot V58.69 11/19/2014 MARLO GRAHAM, JUNIOR A Ot 244.9 HYPOTHYROIDISM NOS 11/19/2014 MARLO GRAHAM, JUNIOR A Ot 272.4 HYPERLIPIDEMIA NEC/NOS 11/19/2014 MARLO GRAHAM, JUNIOR A Ot 401.9 HYPERTENSION NOS 11/19/2014 MARLO GRAHAM, JUNIOR A Ot 427.31 ATRIAL FIBRILLATION 11/19/2014 MARLO GRAHAM, JUNIOR A Ot 733.00 OSTEOPOROSIS NOS 11/19/2014 MARLO GRAHAM, JUNIOR Lo Ot V58.69 OT MED,LT,CURRENT USE 12/18/2014 MARLO GRAHAM, JUNIOR A Ot 244.9 12/18/2014 MARLO GRAHAM, JUNIOR A Ot 272.4 12/18/2014 MARLO GRAHAM, JUNIOR A Ot 401.9 12/18/2014 MARLO GRAHAM, JUNIOR A Ot 427.31 12/18/2014 MARLO GRAHAM, JUNIOR A Ot 733.00 12/18/2014 MARLO GRAHAM, JUNIOR A Ot V58.69 12/18/2014 MARLO GRAHAM, JUNIOR A Ot 244.9 12/18/2014 MARLO GRAHAM, JUNIOR A Ot 272.4 12/18/2014 MARLO GRAHAM, JUNIOR A Ot 401.9 12/18/2014 MARLO GRAAHM, JUNIOR A Ot 427.31 12/18/2014 MARLO GRAHAM, JUNIOR A Ot 733.00 12/18/2014 MARLO GRAHAM, JUNIOR A Ot V58.69 12/19/2014 MARLO GRAHAM, JUNIOR A Ot 244.9 12/19/2014 MARLO GRAHAM, JUNIOR A Ot 272.4 12/19/2014 MARLO GRAHAM, JUNIOR A Ot 401.9 12/19/2014 MARLO GRAHAM, JUNIOR A Ot 427.31 12/19/2014 MARLO GRAHAM, JUNIOR A Ot 733.00 12/19/2014 MARLO GRAHAM, JUNIOR A Ot V58.69 12/19/2014 MARLO GRAHAM, JNUIOR A Ot 244.9 12/19/2014 MARLO GRAHAM, JUNIOR A Ot 272.4 12/19/2014 MARLO GRAHAM, JUNIOR A Ot 401.9 12/19/2014 MARLO GRAHAM, JUNIOR A Ot 427.31 12/19/2014 MARLO GRAHAM, JUNIOR A Ot 733.00 12/19/2014 MARLO GRAHAM, JUNIOR A Ot V58.69 01/29/2015 MARLO GRAHAM, JUNIOR A Ot 244.9 01/29/2015 MARLO GRAHAM, JUNIOR A Ot 272.4 01/29/2015 MARLO GRAHAM, JUNIOR A Ot 401.9 01/29/2015 AMRLO GRAHAM, JUNIOR A Ot 427.31 01/29/2015 MARLO GRAHAM, JUNIOR A Ot 733.00 01/29/2015 MARLO GRAHAM, JUNIOR A Ot V58.69 02/27/2015 KEVIN RENO DO Ot 789.00 ABDOMINAL PAIN, UNSPECIFIED SITE 03/03/2015 MARLO GRAHAM, JUNIOR A Ot 244.9 03/03/2015 MARLO GRAHAM, JUNIOR A Ot 272.4 03/03/2015 MARLO GRAHAM, JUNIOR A Ot 401.9 03/03/2015 MARLO GRAHAM, JUNIOR A Ot 427.31 03/03/2015 MARLO GRAHAM, JUNIOR A Ot 733.00 03/03/2015 MARLO GRAHAM, JUNIOR A Ot V58.69 03/04/2015 ZAID GRAHAM, LA E Ot V58.69 03/04/2015 ZAID GRAHAM, LA E Ot V58.83 03/06/2015 ZAID GRAHAM, LA E Ot V58.69 03/06/2015 ZAID GRAHAM, LA E Ot V58.83 03/18/2015 MARLO GRAHAM, JUNIOR Lo Ot 244.9 HYPOTHYROIDISM NOS 03/18/2015 MARLO GRAHAM, JUNIOR Lo Ot 272.4 HYPERLIPIDEMIA NEC/NOS 03/18/2015 MARLO GRAHAM, JUNIOR A Ot 401.9 HYPERTENSION NOS 03/18/2015 MARLO GRAHAM, JUNIOR A Ot 427.31 ATRIAL FIBRILLATION 03/18/2015 MARLO GRAHAM, JUNIOR A Ot 733.00 OSTEOPOROSIS NOS 03/18/2015 MARLO GRAHAM, JUNIOR Lo Ot V58.69 OT MED,LT,CURRENT USE 03/24/2015 ZAID GRAHAM, LA E Ot V58.69 03/24/2015 ZAID GRAHAM, LA E Ot V58.83 04/09/2015 MARLO GRAHAM, JUNIOR Lo Ot 244.9 04/09/2015 MARLO GRAHAM, JUNIOR A Ot 272.4 04/09/2015 MARLO GRAHAM, JUNIOR A Ot 401.9 04/09/2015 MARLO GRAHAM, JUNIOR A Ot 427.31 04/09/2015 MARLO GRAHAM, JUNIOR A Ot 733.00 04/09/2015 MARLO GRAHAM, JUNIOR A Ot V58.69 05/22/2015 BLANCA HUITRON Ot Z12.31 06/01/2015 MARLO GRAHAM, JUNIOR Lo Ot 244.9 06/01/2015 MARLO GRAHAM, JUNIOR A Ot 272.4 06/01/2015 MARLO GRAHAM, JUNIOR A Ot 401.9 06/01/2015 MARLO GRAHAM, JUNIOR A Ot 427.31 06/01/2015 MARLO GARHAM, JUNIOR A Ot 733.00 06/01/2015 MARLOJUNIOR HONG MD Ot E03.9 06/01/2015 MARLO GRAHAM, JUNIOR Lo Ot E78.5 06/01/2015 JUNIOR SELLERS MD Ot I10 06/01/2015 JUNIOR SELLERS MD Ot I48.91 06/01/2015 JUNIOR SELLERS MD Ot M81.0 06/01/2015 JUNIOR SELLERS MD Ot V58.69 06/01/2015 JUNIOR SELLERS MD Ot Z79.899 06/08/2015 JUNIOR SELLERS MD Ot M54.9 06/08/2015 JUNIOR SELLERS MD Ot R15.9 06/10/2015 BLANCA HUITRON Ot Z12.31 06/16/2015 JUNIOR SELLERS MD Ot M54.9 06/16/2015 JUNIOR SELLERS MD Ot R15.9 07/08/2015 JUNIOR SELLERS MD Ot 244.9 HYPOTHYROIDISM NOS 07/08/2015 JUNIOR SELLERS MD Ot 272.4 HYPERLIPIDEMIA NEC/NOS 07/08/2015 JUNIOR SELLERS MD Ot 401.9 HYPERTENSION NOS 07/08/2015 JUNIOR SELLERS MD Ot 427.31 ATRIAL FIBRILLATION 07/08/2015 JUNIOR SELLERS MD Ot 733.00 OSTEOPOROSIS NOS 07/08/2015 JUNIOR SELLERS MD Ot E03.9 HYPOTHYROIDISM, UNSPECIFIED 07/08/2015 JUNIOR SELLERS MD Ot E78.5 HYPERLIPIDEMIA, UNSPECIFIED 07/08/2015 JUNIOR SELLERS MD Ot I10 ESSENTIAL (PRIMARY) HYPERTENSION 07/08/2015 JUNIOR SELLERS MD Ot I48.91 UNSPECIFIED ATRIAL FIBRILLATION 07/08/2015 JUNIOR SELLERS MD Ot M81.0 AGE-RELATED OSTEOPOROSIS W/O CURRENT PAT 07/08/2015 JUNIOR SELLERS MD Ot V58.69 OTH MED,LT,CURRENT USE 07/08/2015 JUNIOR SELLERS MD Ot Z79.899 OTHER RECREATION FACILITIES SUPERVISOR (CURRENT) DRUG THERAPY 09/30/2015 JUNIOR SELLERS MD Ot 733.00 10/06/2015 Ot 401.9 10/06/2015 Ot 427.31 10/06/2015 Ot V58.69 10/06/2015 Ot 780.4 10/06/2015 Ot 785.1 10/06/2015 Ot V58.61 10/06/2015 Ot V58.69 10/06/2015 Ot V58.83 10/06/2015 MARLO GRAHAM, JUNIOR A Ot 244.9 10/06/2015 MARLO GRAHAM, JUNIOR A Ot 272.4 10/06/2015 MARLO GRAHAM, JUNIOR A Ot 401.9 10/06/2015 MARLO GRAHAM, JUNIOR A Ot 427.31 10/06/2015 MARLO GRAHAM, JUNIOR A Ot 733.00 10/06/2015 MARLO GRAHAM, JUNIOR A Ot E03.9 10/06/2015 MARLO GRAHAM, JUNIOR A Ot E78.5 10/06/2015 MARLO GRAHAM, JUNIOR A Ot I10 10/06/2015 MARLO GRAHAM, JUNIOR Lo Ot I48.91 10/06/2015 MARLO GRAHAM, JUNIOR Lo Ot M81.0 10/06/2015 MARLO GRAHAM, JUNIOR Lo Ot V58.69 10/06/2015 MARLO GRAHAM, JUNIOR A Ot Z79.899 10/06/2015 MARLO GRAHAM, JUNIOR A Ot 733.00 10/06/2015 MARLO GRAHAM, JUNIOR A Ot M81.0 10/15/2015 RAFAEL GRAHAM, MICHAEL Weiner Ot I10 10/15/2015 RAFAEL GRAHAM, MICHAEL Weiner Ot I48.1 10/15/2015 RAFAEL GRAHAM, MICHAEL Weiner Ot I65.23 10/15/2015 RAFAEL GRAHAM, MICHAEL Weiner Ot R00.1 10/29/2015 MARLO GRAHAM, JUNIOR Lo Ot M81.0 AGE-RELATED OSTEOPOROSIS W/O CURRENT PAT 11/11/2015 MARLO GRAHAM, JUNIOR Lo Ot M81.0 AGE-RELATED OSTEOPOROSIS W/O CURRENT PAT 03/24/2016 MARLO GRAHAM, JUNIOR Lo Ot 733.00 OSTEOPOROSIS NOS 03/24/2016 MARLO GRAHAM, JUNIOR Lo Ot V76.12 OT SCREEN MAMMO-MALIGN NEOPLASM OF LUIZ 03/24/2016 Ot 780.4 DIZZINESS AND GIDDINESS 03/24/2016 Ot 785.1 PALPITATIONS 03/24/2016 BLANCA HUITRON BOATBUILDER APPRENTICE WOOD Ot 401.9 HYPERTENSION NOS 03/24/2016 BLANCA HUITRON BOATBUILDER APPRENTICE WOOD Ot V58.69 OTH MED,LT,CURRENT USE 03/24/2016 BLANCA HUITRON BOATBUILDER APPRENTICE WOOD Ot V72.62 LAB EXAM ORDERED PART OF A ROUTINE GE 03/24/2016 Ot V58.61 ANTICOAGULANTS,LT,CURRENT USE 03/24/2016 Ot V58.69 OTH MED,LT,CURRENT USE 03/24/2016 Ot V58.83 ENCOUNTER FOR THERAPEUTIC DRUG MONITORIN 03/24/2016 BLANCA HUITRON BOATBUILDER APPRENTICE WOOD Ot 244.9 HYPOTHYROIDISM NOS 03/24/2016 BLANCA HUITRON BOATBUILDER APPRENTICE WOOD Ot V58.69 OTH MED,LT,CURRENT USE 03/24/2016 BLANCA HUITRON BOATBUILDER APPRENTICE WOOD Ot V58.83 ENCOUNTER FOR THERAPEUTIC DRUG MONITORIN 03/24/2016 JUNIOR SELLERS MD Ot 268.9 VITAMIN D DEFICIENCY NOS 03/24/2016 JUNIOR SELLERS MD Ot 427.31 ATRIAL FIBRILLATION 03/24/2016 JUNIOR SELLERS MD Ot 783.21 LOSS OF WEIGHT 03/24/2016 JUNIOR SELLERS MD Ot V58.69 OTH MED,LT,CURRENT USE 03/24/2016 JUNIOR SELLERS MD Ot 564.00 UNSPEC CONSTIPATION 03/24/2016 JUNIOR SELLERS MD Ot 787.91 DIARRHEA 03/24/2016 JUNIOR SELLERS MD Ot 789.00 ABDOMINAL PAIN, UNSPECIFIED SITE 03/24/2016 JUNIOR SELLERS MD Ot V76.12 OTH SCREEN MAMMO-MALIGN NEOPLASM OF LUIZ 03/24/2016 JUNIOR SELLERS MD Ot 733.00 OSTEOPOROSIS NOS 03/24/2016 LA MAR MD Ot V58.69 OTH MED,LT,CURRENT USE 03/24/2016 LA MAR MD Ot V58.83 ENCOUNTER FOR THERAPEUTIC DRUG MONITORIN 03/24/2016 JUNIOR SELLERS MD Ot M54.9 DORSALGIA, UNSPECIFIED 03/24/2016 JUNIOR SELLERS MD Ot R15.9 FULL INCONTINENCE OF FECES 03/24/2016 BLANCA HUITRON Ot Z12.31 ENCNTR SCREEN MAMMOGRAM FOR MALIGNANT NE 03/24/2016 JUNIOR SELLERS MD Ot 244.9 HYPOTHYROIDISM NOS 03/24/2016 JUNIOR SELLERS MD Ot 272.4 HYPERLIPIDEMIA NEC/NOS 03/24/2016 JUNIOR SELLERS MD Ot 401.9 HYPERTENSION NOS 03/24/2016 JUNIOR SELLERS MD Ot 427.31 ATRIAL FIBRILLATION 03/24/2016 JUNIOR SELLERS MD Ot 733.00 OSTEOPOROSIS NOS 03/24/2016 JUNIOR SELLERS MD Ot E03.9 HYPOTHYROIDISM, UNSPECIFIED 03/24/2016 JUNIOR SELLERS MD Ot E78.5 HYPERLIPIDEMIA, UNSPECIFIED 03/24/2016 JUNIOR SELLERS MD Ot I10 ESSENTIAL (PRIMARY) HYPERTENSION 03/24/2016 JUNIOR SELLERS MD Ot I48.91 UNSPECIFIED ATRIAL FIBRILLATION 03/24/2016 JUNIOR SELLERS MD Ot M81.0 AGE-RELATED OSTEOPOROSIS W/O CURRENT PAT 03/24/2016 JUNIOR SELLERS MD Ot V58.69 OTH MED,LT,CURRENT USE 03/24/2016 JUNIOR SELLERS MD Ot Z79.899 OTHER RECREATION FACILITIES SUPERVISOR (CURRENT) DRUG THERAPY 03/24/2016 MICHAEL HALL MD Ot I10 ESSENTIAL (PRIMARY) HYPERTENSION 03/24/2016 MICHAEL HALL MD Ot I48.1 PERSISTENT ATRIAL FIBRILLATION 03/24/2016 MICHAEL HALL MD Ot 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 03/24/2016 MICHAEL HALL MD Ot R00.1 BRADYCARDIA, UNSPECIFIED 03/24/2016 JUNIOR SELLERS MD Ot M81.0 AGE-RELATED OSTEOPOROSIS W/O CURRENT PAT 03/24/2016 ABELARDO REILLY Ot E78.2 MIXED HYPERLIPIDEMIA 03/24/2016 JUNIOR SELLERS MD Ot I48.91 UNSPECIFIED ATRIAL FIBRILLATION 03/24/2016 JUNIOR SELLERS MD Ot Z79.899 OTHER PRISON (CURRENT) DRUG THERAPY 03/25/2016 JUNIOR SELLERS MD Ot I48.91 UNSPECIFIED ATRIAL FIBRILLATION 03/25/2016 JUNIOR SELLERS MD Ot Z79.899 OTHER PRISON (CURRENT) DRUG THERAPY 03/30/2016 ABELARDO REILLY Ot E78.2 MIXED HYPERLIPIDEMIA 04/06/2016 JUNIOR SELLERS MD Ot I48.91 UNSPECIFIED ATRIAL FIBRILLATION 04/06/2016 JUNIOR SELLERS MD Ot Z79.899 OTHER PRISON (CURRENT) DRUG THERAPY 04/08/2016 JUNIOR SELLERS MD Ot 733.00 OSTEOPOROSIS NOS 04/08/2016 JUNIOR SELLERS MD Ot 733.00 OSTEOPOROSIS NOS 04/12/2016 JUNIOR SELLERS MD Ot 733.00 OSTEOPOROSIS NOS 04/12/2016 JUNIOR SELLERS MD Ot V76.12 OTH SCREEN MAMMO-MALIGN NEOPLASM OF LUIZ 04/12/2016 Ot 780.4 DIZZINESS AND GIDDINESS 04/12/2016 Ot 785.1 PALPITATIONS 04/12/2016 BLANCA HUITRON BOATBUILDER APPRENTICE WOOD Ot 401.9 HYPERTENSION NOS 04/12/2016 BLANCA HUITRON BOATBUILDER APPRENTICE WOOD Ot V58.69 OTH MED,LT,CURRENT USE 04/12/2016 BLANCA HUITRON BOATBUILDER APPRENTICE WOOD Ot V72.62 LAB EXAM ORDERED PART OF A ROUTINE GE 04/12/2016 Ot V58.61 ANTICOAGULANTS,LT,CURRENT USE 04/12/2016 Ot V58.69 OTH MED,LT,CURRENT USE 04/12/2016 Ot V58.83 ENCOUNTER FOR THERAPEUTIC DRUG MONITORIN 04/12/2016 BLANCA HUITRON BOATBUILDER APPRENTICE WOOD Ot 244.9 HYPOTHYROIDISM NOS 04/12/2016 BLANCA HUITRON BOATBUILDER APPRENTICE WOOD Ot V58.69 OTH MED,LT,CURRENT USE 04/12/2016 BLANCA HUITRON BOATBUILDER APPRENTICE WOOD Ot V58.83 ENCOUNTER FOR THERAPEUTIC DRUG MONITORIN 04/12/2016 JUNIOR SELLERS MD Ot 268.9 VITAMIN D DEFICIENCY NOS 04/12/2016 JUNIOR SELLERS MD Ot 427.31 ATRIAL FIBRILLATION 04/12/2016 JUNIOR SELLERS MD Ot 783.21 LOSS OF WEIGHT 04/12/2016 JUNIOR SELLERS MD Ot V58.69 OTH MED,LT,CURRENT USE 04/12/2016 JUNIOR SELLERS MD Ot 564.00 UNSPEC CONSTIPATION 04/12/2016 JUNIOR SELLERS MD Ot 787.91 DIARRHEA 04/12/2016 JUNIOR SELLERS MD Ot 789.00 ABDOMINAL PAIN, UNSPECIFIED SITE 04/12/2016 JUNIOR SELLERS MD Ot V76.12 OTH SCREEN MAMMO-MALIGN NEOPLASM OF ULIZ 04/12/2016 JUNIOR SELLERS MD Ot 733.00 OSTEOPOROSIS NOS 04/12/2016 LA MAR MD Ot V58.69 OTH MED,LT,CURRENT USE 04/12/2016 LA MAR MD Ot V58.83 ENCOUNTER FOR THERAPEUTIC DRUG MONITORIN 04/12/2016 JUNIOR SELLERS MD Ot M54.9 DORSALGIA, UNSPECIFIED 04/12/2016 JUNIOR SELLERS MD Ot R15.9 FULL INCONTINENCE OF FECES 04/12/2016 BLANCA HUITRON Ot Z12.31 ENCNTR SCREEN MAMMOGRAM FOR MALIGNANT NE 04/12/2016 JUNIOR SELLERS MD Ot 244.9 HYPOTHYROIDISM NOS 04/12/2016 JUNIOR SELLERS MD Ot 272.4 HYPERLIPIDEMIA NEC/NOS 04/12/2016 JUNIOR SELLERS MD Ot 401.9 HYPERTENSION NOS 04/12/2016 JUNIOR SELLERS MD Ot 427.31 ATRIAL FIBRILLATION 04/12/2016 JUNIOR SELLERS MD Ot 733.00 OSTEOPOROSIS NOS 04/12/2016 JUNIOR SELLERS MD Ot E03.9 HYPOTHYROIDISM, UNSPECIFIED 04/12/2016 JUNIOR SELLERS MD Ot E78.5 HYPERLIPIDEMIA, UNSPECIFIED 04/12/2016 JUNIOR SELLERS MD Ot I10 ESSENTIAL (PRIMARY) HYPERTENSION 04/12/2016 JUNIOR SELLERS MD Ot I48.91 UNSPECIFIED ATRIAL FIBRILLATION 04/12/2016 JUNIOR SELLERS MD Ot M81.0 AGE-RELATED OSTEOPOROSIS W/O CURRENT PAT 04/12/2016 JUNIOR SELLERS MD Ot V58.69 OTH MED,LT,CURRENT USE 04/12/2016 JUNIOR SELLERS MD Ot Z79.899 OTHER PRISON (CURRENT) DRUG THERAPY 04/12/2016 MICHAEL HALL MD Ot I10 ESSENTIAL (PRIMARY) HYPERTENSION 04/12/2016 MICHAEL HALL MD Ot I48.1 PERSISTENT ATRIAL FIBRILLATION 04/12/2016 MICHAEL HALL MD Ot 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 04/12/2016 MICHAEL HALL MD Ot R00.1 BRADYCARDIA, UNSPECIFIED 04/12/2016 JUNIOR SELLERS MD Ot M81.0 AGE-RELATED OSTEOPOROSIS W/O CURRENT PAT 04/12/2016 JUNIOR SELLERS MD Ot I48.91 UNSPECIFIED ATRIAL FIBRILLATION 04/12/2016 JUNIOR SELLERS MD Ot Z79.899 OTHER RECREATION FACILITIES SUPERVISOR (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) DRUG THERAPY 04/12/2016 ABELARDO REILLY Ot E78.2 MIXED HYPERLIPIDEMIA 04/12/2016 Ot V76.12 OTH SCREEN MAMMO- MALIGN NEOPLASM OF [place]Z 04/12/2016 Ot 246.8 DISORDERS OF THYROID NEC 04/12/2016 Ot 427.31 ATRIAL FIBRILLATION 04/12/2016 Ot V58.69 OTH MED,LT,CURRENT USE 04/12/2016 Ot V76.12 OTH SCREEN MAMMO- MALIGN NEOPLASM OF [place] 04/12/2016 Ot 427.31 ATRIAL FIBRILLATION 04/12/2016 Ot V58.69 OTH MED,LT,CURRENT USE 04/12/2016 Ot 427.31 ATRIAL FIBRILLATION 04/12/2016 Ot 796.4 ABN CLINICAL FINDING NEC 04/12/2016 JUNIOR SELLERS MD Ot 733.00 OSTEOPOROSIS NOS 04/12/2016 LA MAR MD Ot 244.9 HYPOTHYROIDISM NOS 04/12/2016 LA MAR MD Ot V58.69 OTH MED,LT,CURRENT USE 04/12/2016 JUNIOR SELLERS MD Ot V76.12 OTH SCREEN MAMMO-MALIGN NEOPLASM OF LUIZ 04/12/2016 Ot 401.9 HYPERTENSION NOS 04/12/2016 Ot 427.31 ATRIAL FIBRILLATION 04/12/2016 Ot V58.69 OTH MED,LT,CURRENT USE 04/12/2016 Ot 780.4 DIZZINESS AND GIDDINESS 04/12/2016 Ot 785.1 PALPITATIONS 04/12/2016 BLANCA HUITRON BOATBUILDER APPRENTICE WOOD Ot 401.9 HYPERTENSION NOS 04/12/2016 BLANCA HUITRONP Ot V58.69 OTH MED,LT,CURRENT USE 04/12/2016 BLANCA HUITRON Ot V72.62 LAB EXAM ORDERED PART OF A ROUTINE GE 04/12/2016 Ot V58.61 ANTICOAGULANTS,LT,CURRENT USE 04/12/2016 Ot V58.69 OTH MED,LT,CURRENT USE 04/12/2016 Ot V58.83 ENCOUNTER FOR THERAPEUTIC DRUG MONITORIN 04/12/2016 BLANCA HUITRON BOATBUILDER APPRENTICE WOOD Ot 244.9 HYPOTHYROIDISM NOS 04/12/2016 BLANCA HUITRON BOATBUILDER APPRENTICE WOOD Ot V58.69 OTH MED,LT,CURRENT USE 04/12/2016 BLANCA HUITRON Ot V58.83 ENCOUNTER FOR THERAPEUTIC DRUG MONITORIN 04/12/2016 JUNIOR SELLERS MD Ot 268.9 VITAMIN D DEFICIENCY NOS 04/12/2016 JUNIOR SELLERS MD Ot 427.31 ATRIAL FIBRILLATION 04/12/2016 JUNIOR SELLERS MD Ot 783.21 LOSS OF WEIGHT 04/12/2016 JUNIOR SELLERS MD Ot V58.69 OTH MED,LT,CURRENT USE 04/12/2016 JUNIOR SELLERS MD Ot 564.00 UNSPEC CONSTIPATION 04/12/2016 JUNIOR SELLERS MD Ot 787.91 DIARRHEA 04/12/2016 JUNIOR SELLERS MD Ot 789.00 ABDOMINAL PAIN, UNSPECIFIED SITE 04/12/2016 JUNIOR SELLERS MD Ot V76.12 OTH SCREEN MAMMO-MALIGN NEOPLASM OF LUIZ 04/12/2016 JUNIOR SELLERS MD Ot 733.00 OSTEOPOROSIS NOS 04/12/2016 LA MAR MD Ot V58.69 OT MED,LT,CURRENT USE 04/12/2016 LA MAR MD Ot V58.83 ENCOUNTER FOR THERAPEUTIC DRUG MONITORIN 04/12/2016 JUNIOR SELLERS MD Ot M54.9 DORSALGIA, UNSPECIFIED 04/12/2016 JUNIOR SELLERS MD Ot R15.9 FULL INCONTINENCE OF FECES 04/12/2016 BLANCA HUITRON Ot Z12.31 ENCNTR SCREEN MAMMOGRAM FOR MALIGNANT NE 04/12/2016 JUNIOR SELLERS MD Ot 244.9 HYPOTHYROIDISM NOS 04/12/2016 JUNIOR SELLERS MD Ot 272.4 HYPERLIPIDEMIA NEC/NOS 04/12/2016 JUNIOR SELLERS MD Ot 401.9 HYPERTENSION NOS 04/12/2016 JUNIOR SELLERS MD Ot 427.31 ATRIAL FIBRILLATION 04/12/2016 JUNIOR SELLERS MD Ot 733.00 OSTEOPOROSIS NOS 04/12/2016 JUNIOR SELLERS MD Ot E03.9 HYPOTHYROIDISM, UNSPECIFIED 04/12/2016 JUNIOR SELLERS MD Ot E78.5 HYPERLIPIDEMIA, UNSPECIFIED 04/12/2016 JUNIOR SELLERS MD Ot I10 ESSENTIAL (PRIMARY)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 09/29/2017 ABELARDO REILLY Ot E78.2 MIXED HYPERLIPIDEMIA 09/29/2017 ABELARDO REILLY Ot I10 ESSENTIAL (PRIMARY) HYPERTENSION 09/29/2017 ABELARDO REILLY Ot I48.91 UNSPECIFIED ATRIAL FIBRILLATION 11/10/2017 ROBERT WIGGINS CHARTER DRIVER Ot M81.0 AGE-RELATED OSTEOPOROSIS W/O CURRENT PAT 11/28/2017 ROBERT WIGGINS CHARTER DRIVER Ot M81.0 AGE-RELATED OSTEOPOROSIS W/O CURRENT PAT 12/15/2017 ROBERT WIGGINS CHARTER DRIVER Ot M81.0 AGE-RELATED OSTEOPOROSIS W/O CURRENT PAT 01/04/2018 MICHAEL HALL MD Ot I10 ESSENTIAL (PRIMARY) HYPERTENSION 01/04/2018 RAFAEL GRAHAM, MICHAEL Weiner Ot I48.91 UNSPECIFIED ATRIAL FIBRILLATION 01/04/2018 RAFAEL GRAHAM, MICHAEL Weiner Ot J43.9 EMPHYSEMA, UNSPECIFIED 01/04/2018 RAFAEL GRAHAM, MICHAEL Weiner Ot R06.00 DYSPNEA, UNSPECIFIED 01/31/2018 RAFAEL GRAHAM, MICHAEL J Ot I10 ESSENTIAL (PRIMARY) HYPERTENSION 01/31/2018 RAFAEL GRAHAM, MICHAEL Weiner Ot I48.91 UNSPECIFIED ATRIAL FIBRILLATION 01/31/2018 RAFAEL GRAHAM, MICHAEL Weiner Ot J43.9 EMPHYSEMA, UNSPECIFIED 01/31/2018 RAFAEL GRAHAM, MICHAEL Weiner Ot R06.00 DYSPNEA, UNSPECIFIED 02/26/2018 GALDINO GRAHAM, YUNIER Mendoza Ot E78.00 PURE HYPERCHOLESTEROLEMIA, UNSPECIFIED 02/26/2018 YUNIER AHMADI MD Ot I10 ESSENTIAL (PRIMARY) HYPERTENSION 02/26/2018 YUNIER AHMADI MD Ot M25.522 PAIN IN LEFT ELBOW 02/26/2018 YUNIER AHMADI MD Ot M25.552 PAIN IN LEFT HIP 02/26/2018 YUNIER AHMADI MD Ot M81.0 AGE-RELATED OSTEOPOROSIS W/O CURRENT PAT 02/26/2018 YUNIER AHMADI MD Ot S51.012A LACERATION WITHOUT FOREIGN BODY OF LEFT 02/26/2018 YUNIER AHMADI MD Ot W01.0XXA FALL SAME LEV FROM SLIP/TRIP W/O STRIKE 02/26/2018 YUNIER AHMADI MD, Ot Z79.01 PRISON (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 OF ANTICOAGULANT 02/26/2018 YUNIER AHMADI MD, Ot 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.82 RECREATION FACILITIES SUPERVISOR (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 OF ASPIRIN 02/26/2018 YUNIER AHMADI MD, Ot Z85.038 PERSONAL HISTORY OF MALIGNANT NEOPLASM O 02/26/2018 YUNIER AHMADI MD, Ot Z85.528 PERSONAL HISTORY OF OTHER MALIGNANT NEOP 02/26/2018 YUNIER AHMADI MD, Ot Z88.1 ALLERGY STATUS TO OTHER ANTIBIOTIC AGENT 02/26/2018 YUNIER AHMADI MD, Ot Z88.8 ALLERGY STATUS TO OTH DRUG/MEDS/BIOL SUB 02/26/2018 YUNIER AHMADI MD, Ot Z90.710 ACQUIRED ABSENCE OF BOTH CERVIX AND UTER 02/28/2018 YUNIER AHMADI MD, Ot E78.00 PURE HYPERCHOLESTEROLEMIA, UNSPECIFIED 02/28/2018 YUNIER AHMADI MD, Ot I10 ESSENTIAL (PRIMARY) HYPERTENSION 02/28/2018 YUNIER AHMADI MD, Ot M25.522 PAIN IN LEFT ELBOW 02/28/2018 YUNIER AHMADI MD, Ot M25.552 PAIN IN LEFT HIP 02/28/2018 YUNIER AHMADI MD Ot M81.0 AGE-RELATED OSTEOPOROSIS W/O CURRENT PAT 02/28/2018 YUNIER AHMADI MD, Ot S51.012A LACERATION WITHOUT FOREIGN BODY OF LEFT 02/28/2018 YUNIER AHMADI MD Ot W01.0XXA FALL SAME LEV FROM SLIP/TRIP W/O STRIKE 02/28/2018 YUNIER AHMADI MD, Ot Z79.01 PRISON (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 OF ANTICOAGULANT 02/28/2018 YUNIER AHMADI MD, Ot Z79.82 PRISON (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 OF ASPIRIN 02/28/2018 YUNIER AHMADI MD, Ot Z85.038 PERSONAL HISTORY OF MALIGNANT NEOPLASM O 02/28/2018 YUNIER AHMADI MD, Ot Z85.528 PERSONAL HISTORY OF OTHER MALIGNANT NEOP 02/28/2018 YUNIER AHMADI MD, Ot Z88.1 ALLERGY STATUS TO OTHER ANTIBIOTIC AGENT 02/28/2018 YUNIER AHMADI MD Ot Z88.8 ALLERGY STATUS TO OTH DRUG/MEDS/BIOL SUB 02/28/2018 YUNIER AHMADI MD Ot Z90.710 ACQUIRED ABSENCE OF BOTH CERVIX AND UTER 03/07/2018 YUNIER AHMADI MD, Ot E78.00 PURE HYPERCHOLESTEROLEMIA, UNSPECIFIED 03/07/2018 YUNIER AHMADI MD, Ot I10 ESSENTIAL (PRIMARY) HYPERTENSION 03/07/2018 YUNIER AHMADI MD, Ot M25.522 PAIN IN LEFT ELBOW 03/07/2018 YUNIER AHMADI MD, Ot M25.552 PAIN IN LEFT HIP 03/07/2018 YUNIER AHMADI MD Ot M81.0 AGE-RELATED OSTEOPOROSIS W/O CURRENT PAT 03/07/2018 YUNIER AHMADI MD, Ot S51.012A LACERATION WITHOUT FOREIGN BODY OF LEFT 03/07/2018 YUNIER AHMADI MD Ot W01.0XXA FALL SAME LEV FROM SLIP/TRIP W/O STRIKE 03/07/2018 YUNIER AHMADI MD Ot Z79.01 PRISON (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 OF ANTICOAGULANT 03/07/2018 YUNIER AHMADI MD, Ot 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.82 RECREATION FACILITIES SUPERVISOR (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 OF ASPIRIN 03/07/2018 YUNIER AHMADI MD Ot Z85.038 PERSONAL HISTORY OF MALIGNANT NEOPLASM O 03/07/2018 YUNIER AHMADI MD Ot Z85.528 PERSONAL HISTORY OF OTHER MALIGNANT NEOP 03/07/2018 YUNIER AHMADI MD, Ot Z88.1 ALLERGY STATUS TO OTHER ANTIBIOTIC AGENT 03/07/2018 YUNIER AHMADI MD Ot Z88.8 ALLERGY STATUS TO OTH DRUG/MEDS/BIOL SUB 03/07/2018 YUNIER AHMADI MD Ot Z90.710 ACQUIRED ABSENCE OF BOTH CERVIX AND UTER 03/07/2018 YUNIER AHMADI MD Ot S51.012D LACERATION WITHOUT FOREIGN BODY OF LEFT 03/07/2018 ALESSIA AHMADI MDSHUA T Ot X58.XXXD EXPOSURE TO OTHER SPECIFIED FACTORS, SUB 03/09/2018 GALDINO GRAHAM, YUNIER Mendoza Ot S51.012D LACERATION WITHOUT FOREIGN BODY OF LEFT 03/09/2018 YUNIER AHMADI MD Ot X58.XXXD EXPOSURE TO OTHER SPECIFIED FACTORS, SUB 05/02/2018 ROBERT WIGGINS CHARTER DRIVER Ot M81.0 AGE-RELATED OSTEOPOROSIS W/O CURRENT PAT 05/15/2018 ROBERT WIGGINS CHARTER DRIVER Ot M81.0 AGE-RELATED OSTEOPOROSIS W/O CURRENT PAT 05/15/2018 ROBERT WIGGINS CHARTER DRIVER Ot M81.0 AGE-RELATED OSTEOPOROSIS W/O CURRENT PAT 05/15/2018 JUNIOR SELLERS MD Ot 733.00 OSTEOPOROSIS NOS 05/15/2018 JUNIOR SELLERS MD Ot V76.12 OTH SCREEN MAMMO-MALIGN NEOPLASM OF LUIZ 05/15/2018 Ot 780.4 DIZZINESS AND GIDDINESS 05/15/2018 Ot 785.1 PALPITATIONS 05/15/2018 BLANCA HUITRON BOATBUILDER APPRENTICE WOOD Ot 401.9 HYPERTENSION NOS 05/15/2018 BLANCA HUITRON BOATBUILDER APPRENTICE WOOD Ot V58.69 OTH MED,LT,CURRENT USE 05/15/2018 BLANCA HUITRON BOATBUILDER APPRENTICE WOOD Ot V72.62 LAB EXAM ORDERED PART OF A ROUTINE GE 05/15/2018 Ot V58.61 ANTICOAGULANTS,LT,CURRENT USE 05/15/2018 Ot V58.69 OTH MED,LT,CURRENT USE 05/15/2018 Ot V58.83 ENCOUNTER FOR THERAPEUTIC DRUG MONITORIN 05/15/2018 BLANCA HUITRON BOATBUILDER APPRENTICE WOOD Ot 244.9 HYPOTHYROIDISM NOS 05/15/2018 BLANCA HUITRON BOATBUILDER APPRENTICE WOOD Ot V58.69 OTH MED,LT,CURRENT USE 05/15/2018 BLANCA HUITRON BOATBUILDER APPRENTICE WOOD Ot V58.83 ENCOUNTER FOR THERAPEUTIC DRUG MONITORIN 05/15/2018 JUNIOR SELLERS MD Ot 268.9 VITAMIN D DEFICIENCY NOS 05/15/2018 JUNIOR SELLERS MD Ot 427.31 ATRIAL FIBRILLATION 05/15/2018 JUNIOR SELLERS MD Ot 783.21 LOSS OF WEIGHT 05/15/2018 JUNIOR SELLERS MD Ot V58.69 OTH MED,LT,CURRENT USE 05/15/2018 JUNIOR SELLERS MD Ot 564.00 UNSPEC CONSTIPATION 05/15/2018 JUNIOR SELLERS MD Ot 787.91 DIARRHEA 05/15/2018 JUNIOR SELLERS MD Ot 789.00 ABDOMINAL PAIN, UNSPECIFIED SITE 05/15/2018 JUNIOR SELLERS MD Ot V76.12 OTH SCREEN MAMMO-MALIGN NEOPLASM OF LUIZ 05/15/2018 JUNIOR SELLERS MD Ot 733.00 OSTEOPOROSIS NOS 05/15/2018 LA MAR MD Ot V58.69 OTH MED,LT,CURRENT USE 05/15/2018 LA MAR MD Ot V58.83 ENCOUNTER FOR THERAPEUTIC DRUG MONITORIN 05/15/2018 JUNIOR SELLERS MD Ot M54.9 DORSALGIA, UNSPECIFIED 05/15/2018 JUNIOR SELLERS MD Ot R15.9 FULL INCONTINENCE OF FECES 05/15/2018 BLNACA HUITRON Ot Z12.31 ENCNTR SCREEN MAMMOGRAM FOR MALIGNANT NE 05/15/2018 JUNIOR SELLERS MD Ot 244.9 HYPOTHYROIDISM NOS 05/15/2018 JUNIOR SELLERS MD Ot 272.4 HYPERLIPIDEMIA NEC/NOS 05/15/2018 JUNIOR SELLERS MD Ot 401.9 HYPERTENSION NOS 05/15/2018 JUNIOR SELLERS MD Ot 427.31 ATRIAL FIBRILLATION 05/15/2018 JUNIOR SELLERS MD Ot 733.00 OSTEOPOROSIS NOS 05/15/2018 JUNIOR SELLERS MD Ot E03.9 HYPOTHYROIDISM, UNSPECIFIED 05/15/2018 JUNIOR SELLERS MD Ot E78.5 HYPERLIPIDEMIA, UNSPECIFIED 05/15/2018 JUNIOR SELLERS MD Ot I10 ESSENTIAL (PRIMARY) HYPERTENSION 05/15/2018 JUNIOR SELLERS MD Ot I48.91 UNSPECIFIED ATRIAL FIBRILLATION 05/15/2018 JUNIOR SELLERS MD Ot M81.0 AGE-RELATED OSTEOPOROSIS W/O CURRENT PAT 05/15/2018 JUNIOR SELLERS MD Ot V58.69 OTH MED,LT,CURRENT USE 05/15/2018 JUNIOR SELLERS MD Ot Z79.899 OTHER RECREATION FACILITIES SUPERVISOR (CURRENT) DRUG THERAPY 05/15/2018 MICHAEL HALL MD Ot I10 ESSENTIAL (PRIMARY) HYPERTENSION 05/15/2018 MICHAEL HALL MD Ot I48.1 PERSISTENT ATRIAL FIBRILLATION 05/15/2018 MICHAEL HALL MD Ot 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 05/15/2018 MICHAEL HALL MD Ot R00.1 BRADYCARDIA, UNSPECIFIED 05/15/2018 JUNIOR SELLERS MD, Ot M81.0 AGE-RELATED OSTEOPOROSIS W/O CURRENT PAT 05/15/2018 JUNIOR SELLERS MD Ot I48.91 UNSPECIFIED ATRIAL FIBRILLATION 05/15/2018 JUNIOR SELLERS MD Ot Z79.899 OTHER PRISON (CURRENT) DRUG THERAPY 05/15/2018 ABELARDO REILLY Ot E78.2 MIXED HYPERLIPIDEMIA 05/15/2018 JUNIOR SELLERS MD, Ot M81.0 AGE-RELATED OSTEOPOROSIS W/O CURRENT PAT 05/15/2018 BLANCA HUITRON Ot Z12.31 ENCNTR SCREEN MAMMOGRAM FOR MALIGNANT NE 05/15/2018 MICHAEL HALL MD Ot I10 ESSENTIAL (PRIMARY) HYPERTENSION 05/15/2018 MICHAEL HALL MD Ot I48.1 PERSISTENT ATRIAL FIBRILLATION 05/15/2018 MICHAEL HALL MD Ot 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 05/15/2018 MICHAEL HALL MD Ot R00.1 BRADYCARDIA, UNSPECIFIED 05/15/2018 ZOILA LOZADA DO Ot I10 ESSENTIAL (PRIMARY) HYPERTENSION 05/15/2018 ZOILA LOZADA DO Ot I48.1 PERSISTENT ATRIAL FIBRILLATION 05/15/2018 ZOILA LOZADA DO Ot 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 05/15/2018 ZOILA LOZADA DO Ot R00.1 BRADYCARDIA, UNSPECIFIED 05/15/2018 ZOILA LOZADA DO Ot R06.00 DYSPNEA, UNSPECIFIED 05/15/2018 ABELARDO REILLY Ot E78.2 MIXED HYPERLIPIDEMIA 05/15/2018 ROBERT WIGGINS APRN Ot M81.0 AGE-RELATED OSTEOPOROSIS W/O CURRENT PAT 05/15/2018 JUNIOR SELLERS MD, Ot E03.9 HYPOTHYROIDISM, UNSPECIFIED 05/15/2018 ROBERT WIGGINS APRN Ot M81.0 AGE-RELATED OSTEOPOROSIS W/O CURRENT PAT 05/15/2018 JUNIOR SELLERS MD A Ot Z12.31 ENCNTR SCREEN MAMMOGRAM FOR MALIGNANT NE 05/15/2018 ROBERT WIGGINS APRN Ot M81.0 AGE-RELATED OSTEOPOROSIS W/O CURRENT PAT 05/15/2018 MICHAEL HALL MD Ot I10 ESSENTIAL (PRIMARY) HYPERTENSION 05/15/2018 MICHAEL HALL MD Ot I48.1 PERSISTENT ATRIAL FIBRILLATION 05/15/2018 MICHAEL HALL MD Ot 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 05/15/2018 MICHAEL HALL MD Ot R00.1 BRADYCARDIA, UNSPECIFIED 05/15/2018 MICHAEL HALL MD Ot R06.00 DYSPNEA, UNSPECIFIED 05/15/2018 ABELARDO REILLY Ot E78.2 MIXED HYPERLIPIDEMIA 05/15/2018 AEBLARDO REILLY Ot I10 ESSENTIAL (PRIMARY) HYPERTENSION 05/15/2018 ABELARDO REILLY Ot I48.91 UNSPECIFIED ATRIAL FIBRILLATION 05/15/2018 MICHAEL HALL MD Ot I10 ESSENTIAL (PRIMARY) HYPERTENSION 05/15/2018 MICHAEL HALL MD Ot I48.91 UNSPECIFIED ATRIAL FIBRILLATION 05/15/2018 MICHAEL HALL MD Ot J43.9 EMPHYSEMA, UNSPECIFIED 05/15/2018 MICHAEL HALL MD Ot R06.00 DYSPNEA, UNSPECIFIED 05/15/2018 ROBERT WIGGINS APRN Ot M81.0 AGE-RELATED OSTEOPOROSIS W/O CURRENT PAT 05/15/2018 ROBERT WIGGINS APRN Ot M81.0 AGE-RELATED OSTEOPOROSIS W/O CURRENT PAT 05/15/2018 ROBERT WIGGINS APRN Ot M81.0 AGE-RELATED OSTEOPOROSIS W/O CURRENT PAT 05/16/2018 ROBERT WIGGINS APRN Ot M81.0 AGE-RELATED OSTEOPOROSIS W/O CURRENT PAT 06/08/2018 ROBERT WIGGINS APRN Ot Z12.31 ENCNTR SCREEN MAMMOGRAM FOR MALIGNANT NE 06/13/2018 ROBERT WIGGINS APRN Ot Z12.31 ENCNTR SCREEN MAMMOGRAM FOR MALIGNANT NE 06/14/2018 EDGARDO GRAHAM, LA Guthrie Ot J31.2 CHRONIC PHARYNGITIS 06/14/2018 LA REYNOSO MD Ot R49.0 DYSPHONIA 07/02/2018 ROBERT WIGGINS APRN Ot Z12.31 ENCNTR SCREEN MAMMOGRAM FOR MALIGNANT NE 07/07/2018 LA REYNOSO MD Ot J31.2 CHRONIC PHARYNGITIS 07/07/2018 LA REYNOSO MD Ot R49.0 DYSPHONIA 07/20/2018 LA REYNOSO MD Ot J31.2 CHRONIC PHARYNGITIS 07/20/2018 LA REYNOSO MD Ot R49.0 DYSPHONIA 10/17/2018 LORETTA CARABALLO APRN Ot J84.10 PULMONARY FIBROSIS, UNSPECIFIED 10/17/2018 RASHMILORETTA GARSIA CHARTER DRIVER Ot R91.1 SOLITARY PULMONARY NODULE 11/06/2018 LORETTA CARABALLO CHARTER DRIVER Ot J84.10 PULMONARY FIBROSIS, UNSPECIFIED 11/06/2018 RASHMILORETTA GARSIA APRN Ot R91.1 SOLITARY PULMONARY NODULE 11/26/2018 LORETTA CARABALLO APRN Ot J84.10 PULMONARY FIBROSIS, UNSPECIFIED 11/26/2018 LORETTA CARABALLO APRN Ot R91.1 SOLITARY PULMONARY NODULE 12/04/2018 ROBERT IWGGINS APRN Ot M81.0 AGE-RELATED OSTEOPOROSIS W/O CURRENT PAT 12/06/2018 ROBERT WIGGINS APRN Ot M81.0 AGE-RELATED OSTEOPOROSIS W/O CURRENT PAT Procedures Code Description Performed By Performed On 38.93 VENOUS CATHETERIZATION [facility] 03/14/2012 45.62 PART SM BOWEL RESECT NEC 03/14/2012 45.91 SM-TO-SM BOWEL ANASTOM 03/14/2012 Results Test Result Range Complete blood count (CBC) with automated white blood cell (WBC) differential - 03/24/16 09:25 Blood leukocytes automated count (number/volume) 8.5 10*3/uL 4.3-11.0 Blood erythrocytes automated count (number/volume) 4.19 10*6/uL 4.35-5.85 Venous blood hemoglobin measurement (mass/volume) 12.9 g/dL 11.5-16.0 Blood hematocrit (volume fraction) 38 % 35-52 Automated erythrocyte mean corpuscular volume 91 [foz_us] 80-99 Automated erythrocyte mean corpuscular hemoglobin (mass per erythrocyte) 31 pg 25-34 Automated erythrocyte mean corpuscular hemoglobin concentration measurement (mass/volume) 34 g/dL 32-36 Automated erythrocyte distribution width ratio 13.7 % 10.0- 14.5 Automated blood platelet count (count/volume) 196 10*3/uL 130-400 Automated blood platelet mean volume measurement 10.3 [foz_us] 7.4-10.4 Automated blood neutrophils/100 leukocytes 75 % 42-75 Automated blood lymphocytes/100 leukocytes 12 % 12-44 Blood monocytes/100 leukocytes 11 % 0-12 Automated blood eosinophils/100 leukocytes 2 % 0-10 Automated blood basophils/100 leukocytes 1 % 0-10 Blood neutrophils automated count (number/volume) 6.3 10*3 1.8-7.8 Blood lymphocytes automated count (number/volume) 1.0 10*3 1.0-4.0 Blood monocytes automated count (number/volume) 0.9 10*3 0.0- 1.0 Automated eosinophil count 0.2 10*3/uL 0.0-0.3 Automated blood basophil count (count/volume) 0.0 10*3/uL 0.0-0.1 Comprehensive metabolic panel - 03/24/16 09:25 Serum or plasma sodium measurement (moles/volume) 133 mmol/L 135-145 Serum or plasma potassium measurement (moles/volume) 4.2 mmol/L 3.6-5.0 Serum or plasma chloride measurement (moles/volume) 102 mmol/L 98-107 Carbon dioxide 25 mmol/L 21-32 Serum or plasma anion gap determination (moles/volume) 6 mmol/L 5-14 Serum or plasma urea nitrogen measurement (mass/volume) 15 mg/dL 7-18 Serum or plasma creatinine measurement (mass/volume) 0.90 mg/dL 0.60-1.30 Serum or plasma urea nitrogen/creatinine mass ratio 17 NRG Serum or plasma creatinine measurement with calculation of estimated glomerular filtration rate 60 NRG Serum or plasma glucose measurement (mass/volume) 76 mg/dL 70-105 Serum or plasma calcium measurement (mass/volume) 9.0 mg/dL 8.5-10.1 Serum or plasma total bilirubin measurement (mass/volume) 1.0 mg/dL 0.1-1.0 Serum or plasma alkaline phosphatase measurement (enzymatic activity/volume) 60 U/L 40-136 Serum or plasma aspartate aminotransferase measurement (enzymatic activity/volume) 22 U/L 5-34 Serum or plasma alanine aminotransferase measurement (enzymatic activity/volume) 25 U/L 0-55 Serum or plasma protein measurement (mass/volume) 7.4 g/dL 6.4-8.2 Serum or plasma albumin measurement (mass/volume) 4.0 g/dL 3.2-4.5 Lipid 1996 panel - 03/24/16 09:25 Serum or plasma triglyceride measurement (mass/volume) 69 mg/dL <150 Serum or plasma cholesterol measurement (mass/volume) 182 mg/dL < 200 Serum or plasma cholesterol in HDL measurement (mass/volume) 56 mg/dL 40-60 Cholesterol in LDL [mass/volume] in serum or plasma by direct assay 110 mg/dL 1-129 Serum or plasma cholesterol in VLDL measurement (mass/volume) 14 mg/dL 5-40 THYROID STIMULATING HORMONE - 03/24/16 09:25 THYROID STIMULATING HORMONE 3.62 u[iU]/mL 0.35-4.94 Digoxin - 03/24/16 09:25 Digoxin < ng/mL 0.80-2.00 Liver function panel (serum or plasma alk phos, alb, total and direct bili, total protein, ALT, AST) - 09/26/16 10:51 Serum or plasma total bilirubin measurement (mass/volume) 0.8 mg/dL 0.1-1.0 Serum or plasma alkaline phosphatase measurement (enzymatic activity/volume) 49 U/L 40-136 Serum or plasma aspartate aminotransferase measurement (enzymatic activity/volume) 23 U/L 5-34 Serum or plasma alanine aminotransferase measurement (enzymatic activity/volume) 30 U/L 0-55 Serum or plasma protein measurement (mass/volume) 6.7 g/dL 6.4-8.2 Serum or plasma albumin measurement (mass/volume) 3.8 g/dL 3.2-4.5 Bilirubin direct 0.3 mg/dL 0.0-0.3 Serum or plasma indirect bilirubin measurement (mass/volume) 0.5 mg/dL [facility] Lipid 1996 panel - 09/26/16 10:51 Serum or plasma triglyceride measurement (mass/volume) 57 mg/dL <150 Serum or plasma cholesterol measurement (mass/volume) 161 mg/dL < 200 Serum or plasma cholesterol in HDL measurement (mass/volume) 49 mg/dL 40-60 Cholesterol in LDL [mass/volume] in serum or plasma by direct assay 101 mg/dL 1-129 Serum or plasma cholesterol in VLDL measurement (mass/volume) 11 mg/dL 5-40 Complete blood count (CBC) with automated white blood cell (WBC) differential - 10/24/16 18:42 Blood leukocytes automated count (number/volume) 8.0 10*3/uL 4.3-11.0 Blood erythrocytes automated count (number/volume) 4.15 10*6/uL 4.35-5.85 Venous blood hemoglobin measurement (mass/volume) 12.7 g/dL 11.5-16.0 Blood hematocrit (volume fraction) 38 % 35-52 Automated erythrocyte mean corpuscular volume 90 [foz_us] 80-99 Automated erythrocyte mean corpuscular hemoglobin (mass per erythrocyte) 31 pg 25-34 Automated erythrocyte mean corpuscular hemoglobin concentration measurement (mass/volume) 34 g/dL 32-36 Automated erythrocyte distribution width ratio 14.1 % 10.0- 14.5 Automated blood platelet count (count/volume) 210 10*3/uL 130-400 Automated blood platelet mean volume measurement 10.5 [foz_us] 7.4-10.4 Automated blood neutrophils/100 leukocytes 65 % 42-75 Automated blood lymphocytes/100 leukocytes 23 % 12-44 Blood monocytes/100 leukocytes 10 % 0-12 Automated blood eosinophils/100 leukocytes 2 % 0-10 Automated blood basophils/100 leukocytes 0 % 0-10 Blood neutrophils automated count (number/volume) 5.2 10*3 1.8-7.8 Blood lymphocytes automated count (number/volume) 1.8 10*3 1.0-4.0 Blood monocytes automated count (number/volume) 0.8 10*3 0.0- 1.0 Automated eosinophil count 0.2 10*3/uL 0.0-0.3 Automated blood basophil count (count/volume) 0.0 10*3/uL 0.0-0.1 Comprehensive metabolic panel - 10/24/16 18:42 Serum or plasma sodium measurement (moles/volume) 134 mmol/L 135-145 Serum or plasma potassium measurement (moles/volume) 4.6 mmol/L 3.6-5.0 Serum or plasma chloride measurement (moles/volume) 102 mmol/L 98-107 Carbon dioxide 18 mmol/L 21-32 Serum or plasma anion gap determination (moles/volume) 14 mmol/L 5-14 Serum or plasma urea nitrogen measurement (mass/volume) 18 mg/dL 7-18 Serum or plasma creatinine measurement (mass/volume) 1.00 mg/dL 0.60-1.30 Serum or plasma urea nitrogen/creatinine mass ratio 18 NRG Serum or plasma creatinine measurement with calculation of estimated glomerular filtration rate 53 NRG Serum or plasma glucose measurement (mass/volume) 170 mg/dL 70-105 Serum or plasma calcium measurement (mass/volume) 9.1 mg/dL 8.5-10.1 Serum or plasma total bilirubin measurement (mass/volume) 0.5 mg/dL 0.1-1.0 Serum or plasma alkaline phosphatase measurement (enzymatic activity/volume) 56 U/L 40-136 Serum or plasma aspartate aminotransferase measurement (enzymatic activity/volume) 30 U/L 5-34 Serum or plasma alanine aminotransferase measurement (enzymatic activity/volume) 24 U/L 0-55 Serum or plasma protein measurement (mass/volume) 7.4 g/dL 6.4-8.2 Serum or plasma albumin measurement (mass/volume) 4.0 g/dL 3.2-4.5 Serum or plasma troponin i.cardiac measurement (mass/volume) - 10/24/16 18:42 Serum or plasma troponin i.cardiac measurement (mass/volume) < ng/mL <0.30 Complete blood count (CBC) with automated white blood cell (WBC) differential - 03/18/17 14:45 Blood leukocytes automated count (number/volume) 10.1 10*3/uL 4.3-11.0 Blood erythrocytes automated count (number/volume) 4.17 10*6/uL 4.35-5.85 Venous blood hemoglobin measurement (mass/volume) 13.0 g/dL 11.5-16.0 Blood hematocrit (volume fraction) 38 % 35-52 Automated erythrocyte mean corpuscular volume 91 [foz_us] 80-99 Automated erythrocyte mean corpuscular hemoglobin (mass per erythrocyte) 31 pg 25-34 Automated erythrocyte mean corpuscular hemoglobin concentration measurement (mass/volume) 34 g/dL 32-36 Automated erythrocyte distribution width ratio 13.2 % 10.0- 14.5 Automated blood platelet count (count/volume) 213 10*3/uL 130-400 Automated blood platelet mean volume measurement 10.2 [foz_us] 7.4-10.4 Automated blood neutrophils/100 leukocytes 73 % 42-75 Automated blood lymphocytes/100 leukocytes 14 % 12-44 Blood monocytes/100 leukocytes 11 % 0-12 Automated blood eosinophils/100 leukocytes 2 % 0-10 Automated blood basophils/100 leukocytes 0 % 0-10 Blood neutrophils automated count (number/volume) 7.4 10*3 1.8-7.8 Blood lymphocytes automated count (number/volume) 1.5 10*3 1.0-4.0 Blood monocytes automated count (number/volume) 1.1 10*3 0.0- 1.0 Automated eosinophil count 0.2 10*3/uL 0.0-0.3 Automated blood basophil count (count/volume) 0.0 10*3/uL 0.0-0.1 Comprehensive metabolic panel - 03/18/17 14:45 Serum or plasma sodium measurement (moles/volume) 129 mmol/L 135-145 Serum or plasma potassium measurement (moles/volume) 4.6 mmol/L 3.6-5.0 Serum or plasma chloride measurement (moles/volume) 99 mmol/L 98-107 Carbon dioxide 21 mmol/L 21-32 Serum or plasma anion gap determination (moles/volume) 9 mmol/L 5-14 Serum or plasma urea nitrogen measurement (mass/volume) 24 mg/dL 7-18 Serum or plasma creatinine measurement (mass/volume) 0.91 mg/dL 0.60-1.30 Serum or plasma urea nitrogen/creatinine mass ratio 26 NRG Serum or plasma creatinine measurement with calculation of estimated glomerular filtration rate 59 NRG Serum or plasma glucose measurement (mass/volume) 79 mg/dL 70-105 Serum or plasma calcium measurement (mass/volume) 8.9 mg/dL 8.5-10.1 Serum or plasma total bilirubin measurement (mass/volume) 1.0 mg/dL 0.1-1.0 Serum or plasma alkaline phosphatase measurement (enzymatic activity/volume) 67 U/L 40-136 Serum or plasma aspartate aminotransferase measurement (enzymatic activity/volume) 26 U/L 5-34 Serum or plasma alanine aminotransferase measurement (enzymatic activity/volume) 24 U/L 0-55 Serum or plasma protein measurement (mass/volume) 7.3 g/dL 6.4-8.2 Serum or plasma albumin measurement (mass/volume) 3.9 g/dL 3.2-4.5 Lipase - 03/18/17 14:45 Lipase 25 U/L 8-78 Serum or plasma C reactive protein measurement (mass/volume) - 03/18/17 14:45 Serum or plasma C reactive protein measurement (mass/volume) 0.16 mg/dL 0.00-0.50 Complete urinalysis with reflex to culture - 03/18/17 15:10 Urine color determination YELLOW NRG Urine clarity determination SLIGHTLY CLOUDY NRG Urine pH measurement by test strip 6.5 5-9 Specific gravity of urine by test strip 1.010 1.016-1.022 Urine protein assay by test strip, semi-quantitative NEGATIVE NEGATIVE Urine glucose detection by automated test strip NEGATIVE NEGATIVE Erythrocytes detection in urine sediment by light microscopy NEGATIVE NEGATIVE Urine ketones detection by automated test strip NEGATIVE NEGATIVE Urine nitrite detection by test strip NEGATIVE NEGATIVE Urine total bilirubin detection by test strip NEGATIVE NEGATIVE Urine urobilinogen measurement by automated test strip (mass/volume) NORMAL NORMAL Urine leukocyte esterase detection by dipstick NEGATIVE NEGATIVE Automated urine sediment erythrocyte count by microscopy (number/high power field) NONE NRG Automated urine sediment leukocyte count by microscopy (number/high power field) NONE NRG Bacteria detection in urine sediment by light microscopy TRACE NRG Squamous epithelial cells detection in urine sediment by light microscopy 10-25 NRG Crystals detection in urine sediment by light microscopy NONE NRG Casts detection in urine sediment by light microscopy NONE NRG Mucus detection in urine sediment by light microscopy NEGATIVE NRG Complete urinalysis with reflex to culture NO [facility] Comprehensive metabolic panel - 09/28/17 11:05 Serum or plasma sodium measurement (moles/volume) 136 mmol/L 135-145 Serum or plasma potassium measurement (moles/volume) 4.4 mmol/L 3.6-5.0 Serum or plasma chloride measurement (moles/volume) 101 mmol/L 98-107 Carbon dioxide 27 mmol/L 21-32 Serum or plasma anion gap determination (moles/volume) 8 mmol/L 5-14 Serum or plasma urea nitrogen measurement (mass/volume) 23 mg/dL 7-18 Serum or plasma creatinine measurement (mass/volume) 0.89 mg/dL 0.60-1.30 Serum or plasma urea nitrogen/creatinine mass ratio 26 NRG Serum or plasma creatinine measurement with calculation of estimated glomerular filtration rate 60 NRG Serum or plasma glucose measurement (mass/volume) 100 mg/dL 70-105 Serum or plasma calcium measurement (mass/volume) 10.0 mg/dL 8.5-10.1 Serum or plasma total bilirubin measurement (mass/volume) 1.2 mg/dL 0.1-1.0 Serum or plasma alkaline phosphatase measurement (enzymatic activity/volume) 63 U/L 40-136 Serum or plasma aspartate aminotransferase measurement (enzymatic activity/volume) 23 U/L 5-34 Serum or plasma alanine aminotransferase measurement (enzymatic activity/volume) 21 U/L 0-55 Serum or plasma protein measurement (mass/volume) 7.9 g/dL 6.4-8.2 Serum or plasma albumin measurement (mass/volume) 4.4 g/dL 3.2-4.5 Lipid 1996 panel - 09/28/17 11:05 Serum or plasma triglyceride measurement (mass/volume) 88 mg/dL <150 Serum or plasma cholesterol measurement (mass/volume) 205 mg/dL < 200 Serum or plasma cholesterol in HDL measurement (mass/volume) 50 mg/dL 40-60 Cholesterol in LDL [mass/volume] in serum or plasma by direct assay 138 mg/dL 1-129 Serum or plasma cholesterol in VLDL measurement (mass/volume) 18 mg/dL 5-40 [id number] - 06/13/18 12:10 Serum or plasma urea nitrogen measurement (mass/volume) 18 mg/dL 7-18 Serum or plasma creatinine measurement (mass/volume) 0.86 mg/dL 0.60-1.30 Serum or plasma urea nitrogen/creatinine mass ratio 21 NRG Serum or plasma creatinine measurement with calculation of estimated glomerular filtration rate > NRG Encounters ACCT No. Visit Date/Time Discharge Status Pt. Type Provider Facility Loc./Unit Complaint [id number] 11/30/2018 13:39:00 11/30/2018 14:20:00 DIS Outpatient ROBERT WIGGINS APRN [facility] OSTEOPOROSIS M81.0 [id number] 11/12/2018 13:00:00 11/12/2018 23:59:59 CLS Preadmit ROBERT WIGGINS APRN [facility] OSTEOPOROSIS [id number] 10/17/2018 12:53:00 10/17/2018 23:59:59 CLS Outpatient LORETTA CARABALLO APRN [facility] RAD EMPHYSEMA,COPD [id number] 09/19/2018 14:43:00 09/19/2018 23:59:59 CLS Preadmit LORETTA CARABALLO CHARTER DRIVER [facility] RAD EMPHYSEMA,COPD [id number] 06/13/2018 11:54:00 06/13/2018 23:59:59 CLS Outpatient LA REYNOSO MD [facility] RAD CHRONIC SORE THROAT [id number] 06/07/2018 10:36:00 06/07/2018 23:59:59 CLS Outpatient ROBERT WIGGINS APRN [facility] RAD SCREENING [id number] 05/15/2018 13:32:00 05/15/2018 14:06:00 DIS Outpatient ROBERT WIGGINS APRN [facility] OSTEOPOROSIS M81.0 [id number] 11/07/2017 13:02:00 05/15/2018 13:56:00 DIS Outpatient ROBERT WIGGINS APRN [facility] OSTEOPOROSIS [id number] 03/07/2018 09:30:00 03/07/2018 10:06:00 DIS Emergency YUNIER AHMADI MD [facility] ER SUTURE REMOVAL [id number] 02/26/2018 09:30:00 02/26/2018 12:48:00 DIS Emergency YUNIER AHMADI MD [facility] ER FALL,RIGHT SIDE PAIN [id number] 01/03/2018 08:57:00 01/03/2018 23:59:59 CLS Outpatient MICHAEL HALL MD [facility] LAB I48.1,I65.23 [id number] 09/28/2017 10:52:00 09/28/2017 23:59:59 CLS Outpatient ABELARDO REILLY [facility] LAB I10 I48.1 E78.2 [id number] 08/16/2017 10:31:00 08/16/2017 23:59:59 CLS Outpatient MICHAEL HALL MD [facility] CARD I48.1 AF [id number] 06/05/2017 14:45:00 06/05/2017 23:59:59 CLS Outpatient JUNIOR SELLERS MD [facility] RAD SCREENING [id number] 04/11/2017 13:14:00 04/11/2017 23:59:59 CLS Outpatient ROBERT WIGGINS CHARTER DRIVER [facility] M81.0 [id number] 03/18/2017 13:29:00 03/18/2017 17:03:00 DIS Emergency URBAN CONNOR [facility] ER ABD PAIN [id number] 11/08/2016 15:05:00 11/08/2016 23:59:59 CLS Outpatient JUNIOR SELLRES MD [facility] RAD HYPOTHYROIDISM [id number] 11/04/2016 12:47:00 11/04/2016 13:34:00 DIS Emergency EVELIO WISE MD [facility] ER SUTURE REMOVAL [id number] 10/24/2016 18:39:00 10/24/2016 22:13:00 DIS Emergency SUKHWINDER LEMUS CHARTER DRIVER [facility] ER TRAUMA [id number] 10/10/2016 12:58:00 10/10/2016 23:59:59 CLS Outpatient ROBERT WIGGINS CHARTER DRIVER [facility] OSTEOPOROSIS [id number] 09/26/2016 10:42:00 09/26/2016 23:59:59 CLS Outpatient ABELARDO REILLY [facility] LAB E78.2 [id number] 08/22/2016 12:02:00 08/22/2016 23:59:59 CLS Outpatient ZOILA LOZADA DO [facility] RAD DYSPNEA,HTN,BRADYCARDIA [id number] 06/13/2016 14:41:00 06/13/2016 23:59:59 CLS Outpatient MICHAEL HALL MD [facility] CARD AF,BRADYCARDIA,HTN [id number] 06/01/2016 10:02:00 06/01/2016 23:59:59 CLS Outpatient BLANCA HUITRON [facility] RAD SCREENING [id number] 04/08/2016 13:17:00 04/08/2016 23:59:59 CLS Outpatient JUNIOR SELLERS MD [facility] OSTEOPOROSIS [id number] 03/24/2016 09:17:00 03/24/2016 23:59:59 CLS Outpatient ABELARDO REILLY [facility] LAB HYPERLIPIDEMIA [id number] 03/24/2016 09:12:00 03/24/2016 23:59:59 CLS Outpatient JUNIOR SELLERS MD [facility] LAB AFIB,Z79.899 [id number] 10/06/2015 12:57:00 10/06/2015 23:59:59 CLS Outpatient JUNIOR SELLERS MD [facility] OSTEOPOROSIS [id number] 09/18/2015 11:20:00 09/18/2015 23:59:59 CLS Outpatient MICHAEL HALL MD [facility] LAB A-FIB,BRADYCARDIA,HTN, REI [id number] 07/09/2015 00:23:00 07/09/2015 23:59:59 CLS Preadmit JUNIOR SELLERS MD [facility] LAB AFIB,PRISON MED USE [id number] 04/09/2015 15:45:00 07/08/2015 00:01:00 DIS Outpatient JUNIOR SELLERS MD [facility] LAB AFIB,RECREATION FACILITIES SUPERVISOR MED USE [id number] 05/21/2015 10:44:00 05/21/2015 23:59:59 CLS Outpatient BLANCA HUITRON [facility] RAD SCREENING [id number] 05/13/2015 09:46:00 05/13/2015 23:59:59 CLS Outpatient JUNIOR SELLERS MD [facility] RAD LBP [id number] 03/02/2015 13:55:00 03/18/2015 00:01:00 DIS Outpatient JUNIOR SELLERS MD [facility] LAB AFIB,RECREATION FACILITIES SUPERVISOR MED USE [id number] 03/02/2015 13:52:00 03/02/2015 23:59:59 CLS Outpatient LA MAR MD [facility] LAB RECREATION FACILITIES SUPERVISOR MED USE [id number] 02/27/2015 20:38:00 02/27/2015 20:38:00 DIS Emergency KEVIN RENO DO [facility] ER ABD PAIN [id number] 11/18/2014 14:28:00 11/19/2014 00:01:00 DIS Outpatient JUNIOR SELLERS MD [facility] LAB AFIB,RECREATION FACILITIES SUPERVISOR MED USE [id number] 05/15/2014 13:01:00 08/03/2014 00:01:00 DIS Outpatient JUNIOR SELLERS MD [facility] LAB AFIB,PRISON MED USE.ROUTINE SCREENING [id number] 07/21/2014 12:57:00 07/21/2014 23:59:59 CLS Outpatient JUNIOR SELLERS MD [facility] SDC OSTEOPOROSIS [id number] 05/14/2014 14:43:00 05/14/2014 23:59:59 CLS Outpatient JUNIOR SELLERS MD [facility] RAD SCREENING [id number] 03/27/2014 10:16:00 04/28/2014 00:01:00 DIS Outpatient JUNIOR SELLERS MD [facility] LAB AFIB,PRISON MED USE.ROUTINE SCREENING [id number] 01/20/2014 16:20:00 02/24/2014 10:07:00 DIS Outpatient BLANCA HUITRON [facility] LAB DIARRHEA [id number] 01/31/2014 11:20:00 01/31/2014 23:59:59 CLS Outpatient JUNIOR SELLERS MD [facility] RAD DIARRHEA,ABD DISCOMFORT [id number] 01/28/2014 08:56:00 01/28/2014 23:59:59 CLS Outpatient JUNIOR SELLERS MD [facility] LAB AFIB,WT LOSS,PRISON MED USE [id number] 12/24/2013 09:47:00 01/27/2014 00:01:00 DIS Outpatient JUNIOR SELLERS MD [facility] LAB AFIB,RECREATION FACILITIES SUPERVISOR MED USE.ROUTINE SCREENING [id number] 10/29/2013 09:24:00 10/29/2013 23:59:59 CLS Outpatient BLANCA HUITRON [facility] LAB PRISON MED USE,HYPOTHROIDISM [id number] 09/11/2013 11:37:00 10/27/2013 00:01:00 DIS Outpatient JUNIOR SELLERS MD [facility] LAB AFIB,RECREATION FACILITIES SUPERVISOR MED USE.ROUTINE SCREENING [id number] 06/27/2013 14:54:00 08/25/2013 00:01:00 DIS Outpatient JUNIOR SELLERS MD [facility] LAB ATRIAL FIBLIATRION [id number] 08/15/2013 15:35:00 08/15/2013 23:59:59 CLS Outpatient BLANCA HUITRONP [facility] LAB HTN,RECREATION FACILITIES SUPERVISOR MED USE,ROUTINE EXAM [id number] 05/14/2013 11:30:00 07/23/2013 00:01:00 DIS Outpatient JUNIOR SELLERS MD [facility] CARD PALPITATIONS,DIZZINESS [id number] 06/25/2013 12:52:00 06/25/2013 23:59:59 CLS Outpatient JUNIOR SELLERS MD [facility] SDC OSTEOPOROSIS [id number] 04/17/2013 14:41:00 05/27/2013 10:02:00 DIS Outpatient JUNIOR SELLERS MD [facility] LAB AFIB [id number] 05/10/2013 23:33:00 05/11/2013 00:58:00 DIS Emergency ALEJANDRO GARCIA MD [facility] ER HIGH BP [id number] 05/07/2013 10:27:00 05/07/2013 23:59:59 CLS Outpatient JUNIOR SELLERS MD [facility] RAD SCREENING [id number] 03/21/2013 15:06:00 04/18/2013 10:00:00 DIS Outpatient JUNOIR SELLERS MD [facility] LAB PRISON USE ANTICOAGULANTS [id number] 03/21/2013 15:17:00 04/15/2013 00:01:00 DIS Outpatient BLANCA HUITRON [facility] LAB PRISON MED USE, HTN [id number] 01/29/2013 09:46:00 01/29/2013 23:59:59 CLS Outpatient ZAID GRAHAM, [place] Ambrocio [facility] LAB HYPOTHYROIDISM [id number] 01/15/2013 10:34:00 01/21/2013 00:01:00 DIS Outpatient MARLO GRAHAM, JUNIOR Lo [facility] RECREATION FACILITIES SUPERVISOR USE ANTICOAGULANTS [id number] 11/27/2012 11:27:00 11/27/2012 00:01:00 DIS Outpatient BLANCA HUITRON [facility] RECREATION FACILITIES SUPERVISOR MED USE, HTN [id number] 04/12/2016 09:52:00 Document Registration [id number] 08/26/2013 00:00:00 Document Registration [id number] 07/24/2013 10:30:00 Document Registration [id number] 04/16/2013 00:00:00 Document Registration [id number] 09/25/2012 11:27:00 Document Registration [id number] 07/04/2012 12:04:00 Document Registration [id number] 06/04/2012 10:33:00 Document Registration [id number] 05/24/2012 11:18:00 Document Registration [id number] 05/15/2012 10:52:00 Document Registration [id number] 05/02/2012 09:44:00 Document Registration [id number] 03/27/2012 11:34:00 Document Registration [id number] 03/13/2012 10:30:00 Document Registration [id number] 01/03/2012 10:23:00 Document Registration [id number] 12/20/2011 09:47:00 Document Registration [id number] 11/30/2011 21:40:00 Document Registration [id number] 07/22/2011 12:53:00 Document Registration [id number] 04/29/2011 09:19:00 Document Registration
[2018-12-10] MEDS: NYSTATIN ORAL SUSP 5 ML UDC PO SCH ×2 (22:40→22:44)
[2018-12-10] MEDS: PANTOPRAZOLE 40 MG (PROTONIX) TAB PO SCH (22:40)
[2018-12-10] MEDS: APIXABAN 2.5 MG (ELIQUIS) TABLET PO SCH (22:41)
[2018-12-10] MEDS: SIMETHICONE 80 MG (MYLICON) CHEW PO SCH (22:41)
[2018-12-10] MEDS: SPIRONOLACTONE 25 MG (ALDACTONE) TAB PO SCH (22:41)
[2018-12-10] MEDS: DOCUSATE SODIUM 100 MG (COLACE) CAP PO SCH (22:41)
[2018-12-10 23:42] VITALS: BP 130/64
[2018-12-11] MEDS: ACETAMINOPHEN 325 MG TABLET PO PRN (00:25)
[2018-12-11] MEDS ORDERED: LEVOTHYROXINE 75 MCG (LEVOTHROID) TABLET PO SCH (03:00)
[2018-12-11 03:59] VITALS: BP 119/58
[2018-12-11 06:32] LABS: HEMOGLOBIN 11.5 G/DL (11.5-16.0); WHITE BLOOD COUNT 7.7 10^3/uL (4.3-11.0)
[2018-12-11] MEDS: LEVOTHYROXINE 75 MCG (LEVOTHROID) TABLET PO SCH (06:42)
[2018-12-11 06:53] LABS: ALANINE AMINOTRANSFERASE 52 U/L (0-55); ALBUMIN 2.5 GM/DL (3.2-4.5); ALKALINE PHOSPHATASE 53 U/L (40-136); BILIRUBIN,TOTAL 0.4 MG/DL (0.1-1.0); BUN/CREATININE RATIO 28; CALCIUM 7.8 MG/DL (8.5-10.1); CARBON DIOXIDE 18 MMOL/L (21-32); CHLORIDE 101 MMOL/L (98-107); CREATININE SERUM 0.79 MG/DL (0.60-1.30); GFR ESTIMATED > 60; GLUCOSE 85 MG/DL (70-105); MAGNESIUM 1.8 MG/DL (1.8-2.4); POTASSIUM 4.6 MMOL/L (3.6-5.0); SODIUM 126 MMOL/L (135-145); TOTAL PROTEIN 5.1 GM/DL (6.4-8.2)
[2018-12-11 08:00] VITALS: BP 125/70
--- NOTE | 2018-12-11 08:49 | Progress Note ---
Subjective Date Seen by a Provider: Dec 11, 2018 Time Seen by a Provider: 08:40 Subjective/Events-last exam PT REPORTS THAT SHE HAD A ROUGH NIGHT LAST NIGHT - DID NOT SLEEP WELL, THERE WAS A LOT OF NOISE IN THE [place] LAST NIGHT. SHE DENIES CHEST PAIN, DOES FEEL SHORT OF BREATH. Review of Systems General: Fatigue, Other (INSOMNIA DUE TO NOISE LAST NIGHT) HEENT: No Head Aches Pulmonary: Dyspnea; No Cough Cardiovascular: Palpitations; No: Chest Pain Gastrointestinal: No: Nausea, Abdominal Pain Genitourinary: No Dysuria Neurological: No: Weakness, Confusion Objective Exam Last Set of Vital Signs Vital Signs Date Time Temp Pulse Resp B/P (MAP) Pulse Ox O2 Delivery O2 Flow Rate FiO2 12/11/18 07:00 77 12/11/18 03:59 98.0 18 119/58 (78) 92 Room Air Capillary Refill : I&O Intake and Output 12/11/18 00:00 Intake Total 2660 ml Output Total 700 ml Balance 1960 ml Intake Oral 660 ml IV Total 2000 ml Output Urine Total 700 ml # Voids 1 Daily Weight Change Yes, 14-23 lbs Yes, 14-23 lbs General: Alert, Oriented X3, Cooperative HEENT: Atraumatic, PERRLA Neck: Supple Lungs: Clear to Auscultation Heart: Regular Rate Abdomen: Normal Bowel Sounds, Soft Skin: No Breakdown Neuro: Cranial Nerves 3-12 NL Psych/Mental Status: Mental Status NL, Mood NL Results Lab Laboratory Tests 12/10/18 13:09: White Blood Count 10.4, Red Blood Count 4.39, Hemoglobin 13.5, Hematocrit 39, Mean Corpuscular Volume 89, Mean Corpuscular Hemoglobin 31, Mean Corpuscular Hemoglobin Concent 34, Red Cell Distribution Width 12.8, Platelet Count 260, Mean Platelet Volume 9.8, Sodium Level 121*L, Potassium Level 4.7, Chloride Level 93L, Carbon Dioxide Level 20L, Anion Gap 8, Blood Urea Nitrogen 22H, Creatinine 0.99, Estimat Glomerular Filtration Rate 53, BUN/Creatinine Ratio 22, Glucose Level 93, Calcium Level 8.6, Corrected Calcium 9.2, Magnesium Level 1.7L , Total Bilirubin 0.5, Aspartate Amino Transf (AST/SGOT) 46H, Alanine Aminotransferase (ALT/SGPT) 66H, Alkaline Phosphatase 67, Total Protein 6.8, Albumin 3.3, Thyroid Stimulating Hormone (TSH) 5.94H, Free Thyroxine 1.21, Digoxin Level < 0.30L 12/10/18 17:37: Urine Color YELLOW, Urine Clarity CLEAR, Urine pH 7, Urine Specific [place] 1.005L, Urine Protein NEGATIVE, Urine Glucose (UA) NEGATIVE, Urine Ketones NEGATIVE, Urine Nitrite NEGATIVE, Urine Bilirubin NEGATIVE, Urine Urobilinogen NORMAL, Urine Leukocyte Esterase NEGATIVE, Urine RBC (Auto) NEGATIVE, Urine RBC NONE, Urine WBC NONE, Urine Squamous Epithelial Cells NONE, Urine Crystals NONE, Urine Bacteria TRACE, Urine Casts NONE, Urine Mucus NEGATIVE, Urine Culture Indicated NO 12/11/18 05:55: White Blood Count 7.7, Red Blood Count 3.78L, Hemoglobin 11.5, Hematocrit 34L, Mean Corpuscular Volume 89, Mean Corpuscular Hemoglobin 30, Mean Corpuscular Hemoglobin Concent 34, Red Cell Distribution Width 13.0, Platelet Count 260, Mean Platelet Volume 10.0, Sodium Level 126L, Potassium Level 4.6, Chloride Level 101, Carbon Dioxide Level 18L, Anion Gap 7, Blood Urea Nitrogen 22H, Creatinine 0.79, Estimat Glomerular Filtration Rate > 60, BUN/Creatinine Ratio 28, Glucose Level 85, Calcium Level 7.8L, Corrected Calcium 9.0, Magnesium Level 1.8, Total Bilirubin 0.4, Aspartate Amino Transf (AST/SGOT) 37H, Alanine Aminotransferase (ALT/SGPT) 52, Alkaline Phosphatase 53, Total Protein 5.1L, Albumin 2.5L Assessment/Plan Assessment/Plan Assess & Plan/Chief Complaint HYPONATREMIA ATRIAL FIBRILLATION HYPERTENSION HYPOTHYROIDISM CHRONIC ANXIETY HYPERLIPIDEMIA ESOPHAGEAL REFLUX HYPONATREMIA - REPLACE WITH IV FLUIDS - MONITOR SYMPTOMS - CHECK LABS. ATRIAL FIBRILLATION - RESUME HOME REGIMEN - DEFER TO DR. HALL HYPERTENSION - RESUME HOME REGIMEN HYPOTHYROIDISM - STABLE - NO CHANGE IN MEDICATIONS CHRONIC ANXIETY - SUPPORTIVE CARE -RESUME ANXIOLYTIC - DAUGHTER WOULD LIKE LEXAPRO RESTARTED. HYPERLIPIDEMIA - HOLD STATIN AT THIS TIME ESOPHAGEAL REFLUX - HOLD PPI THERAPY FOR NOW Clinical Quality Measures Admission Status Admission Dx HYPONATREMIA ATRIAL FIBRILLATION HYPERTENSION HYPOTHYROIDISM CHRONIC ANXIETY HYPERLIPIDEMIA ESOPHAGEAL REFLUX DVT/VTE Risk/Contraindication: Risk Factor Score Per Nursin RFS Level Per Nursing on Admit: 2=Moderate JUNIOR SELLERS MD Dec 11, 2018 08:49
[2018-12-11] MEDS ORDERED: NON-FORMULARY MEDICATION 1 EA EA (Amlodipine Besylate 5 MG) PO SCH (09:00)
[2018-12-11] MEDS ORDERED: NON-FORMULARY MEDICATION 1 EA EA (L.acidoph & Paracasei,B.lactis (Probiotic) 1 CAP) PO SCH (09:00)
[2018-12-11] MEDS: LACTOBACILLUS ACIDOPHILUS (PROBIOTIC) CAPSULE PO SCH (09:16)
[2018-12-11] MEDS: meTOproloL SUCCINATE 50 MG (TOPROL XL) TAB PO SCH (09:16)
[2018-12-11] MEDS: ARTIFICAL TEARS 0.4 ML UNIT DOSE (REFRESH PLUS) OU SCH ×4 (09:16→21:09)
[2018-12-11] MEDS: NYSTATIN ORAL SUSP 5 ML UDC PO SCH ×4 (09:16→21:09)
[2018-12-11] MEDS: APIXABAN 2.5 MG (ELIQUIS) TABLET PO SCH ×2 (09:17→21:08)
[2018-12-11] MEDS: amLODIPine 5 MG (NORVASC) TAB PO SCH (09:17)
[2018-12-11] MEDS: SIMETHICONE 80 MG (MYLICON) CHEW PO SCH ×4 (09:17→21:08)
[2018-12-11] MEDS: SPIRONOLACTONE 25 MG (ALDACTONE) TAB PO SCH ×2 (09:17→21:09)
--- NOTE | 2018-12-11 10:50 | Physical Therapy Evaluation ---
PT Evaluation-General Medical Diagnosis Admission Date Dec 10, 2018 at 12:35 Medical Diagnosis: A fib; weakness Onset Date: Dec 10, 2018 Therapy Diagnosis Therapy Diagnosis: abnormal gait Height/Weight Height (Feet): 5 Height (Inches): 1.00 Weight (Pounds): 105 Weight (Ounces): 9.6 Precautions Precautions/Isolations: Fall Prevention, Standard Precautions Referral Physician: Josef Reason for Referral: Evaluation/Treatment Medical History Pertinent Medical History: Atrial Fib, HTN, Hypothroidism Additional Medical History high cholesterol, osteoporsis; anxiety Current History Admitted from Dr. Bahena's office with generalized weakness and not feeling well; reports of sleeping up to 20 hours/day. Reviewed History: Yes Social History Home: Apartment Entry Into Home: Stairs With Railing Prior/Core FIM Prior Level of Function Therapy Code Descriptions/Definitions Functional [place] Measure: 0=Not Assessed/NA 4=Minimal Assistance 1=Total Assistance 5=Supervision or Setup 2=Maximal Assistance 6=Modified [place] 3=Moderate Assistance 7=Complete [place] Therapy Quality Codes: 6 Independent with activity with or without an assistive device 5 Patient requires set up or clean up by helper. Patient completes activity by themselves 4 Supervision or touching assist (CGA). [place] provide cues , steadying assist 3 The helper provides less than half the effort to complete the activity 2 The helper provides more than half the effort to complete the activity 1 Dependent. The helper does all the effort to complete an activity 7 Patient refused to complete or attempt activity 9 The patient did not perform the activity before the current illness or injury 88 Not attempted due to Medical conditions or safety concerns Functional Abilities and Goals: Independent: Patient completed the activities by him/herself, with or without an assistive device, with no assistance from a helper. Needed Some Help: Patient needed partial assistance from another person to complete activities. Dependent: A helper completed the activities for the patient. Unknown: Not Applicable: Bed Mobility: 7 Transfers (B,C,W/C) (FIM): 7 Gait: 7 Stairs: 7 Indoor Mobility (Ambulation): Independent Stairs: Independent Pt still drives and is indep with all mobility; recently returned home from a trip to [place] PT Evaluation-Current Subjective Agrees to PT. Reports she feels she may be feeling a little bit better. Pt/Family Goals Her goal is to return home when able. Objective Patient Orientation: Person, Place, Time, Situation Problem Solving: Good Attachments: IV ROM/Strength ROM Lower Extremities WNL Strength Lower Extremities WFL Integumentary/Posture Integumentary intact Bowel Incontinence: No Bladder Incontinence: No Posture thoracic kyphosis and slightly rounded shoulders. Neuromuscular (Tone, Coordination, Reflexes) no noted functional deficits Sensory Vision: Functional Hearing: Functional Sensation Right Lower Extremit: Intact Sensation Left Lower Extremity: Intact Transfers Therapy Code Descriptions/Definitions Functional [place] Measure: 0=Not Assessed/NA 4=Minimal Assistance 1=Total Assistance 5=Supervision or Setup 2=Maximal Assistance 6=Modified [place] 3=Moderate Assistance 7=Complete [place] Transfers (B, C, W/C) (FIM): 4 Supine to/from Sit: 4 (min assist to lift her trunk) Sit to/from Stand: 4 (CGA for safety; toilet transfer with CGA as well) Gait Mode of Locomotion: Walk Anticipated Mode of Locomotion: Walk Gait (FIM): 2 Distance (FIM): 1=025-99 ft Distance: 50 ft x 2 Gait Assistive Device: FWW Comments/Gait Description slow and shuffles feet; rounded shoulders and decreased speed Balance Sitting Static: Good Sitting Dynamic: Good Standing Static: Good Standing Dynamic: Fair Treatment Bed mobility and transfers; toileted and gait training. Assessment/Needs Pt presents with decreased functional activity tolerance with difficulty with transfers and gait requiring assist and supervision for safety. She will benefit from skilled PT to address her mobility to enhance strength to allow her to return home alone as before. Rehab Potential: Good PT [place] Goals Half-Way Goals PT Half-Way Goals Time Frame: Dec 18, 2018 Transfers (B,C,W/C) (FIM): 7 Gait (FIM): 6 Gait distance (FIM): 3=150 ft Gait Assistive Device: FWW PT Plan Problem List Problem List: Activity Tolerance, Functional Strength, Safety, Balance, Gait, Transfer, Bed Mobility Treatment/Plan Treatment Plan: Continue Plan of Care Treatment Plan: Bed Mobility, Education, Functional Activity Natty, Functional Strength, Gait, Safety, Therapeutic Exercise, Transfers Treatment Duration: Dec 18, 2018 Frequency: 6 times per week Estimated Hrs Per Day: .5 hour per day Patient and/or Family Agrees t: Yes Safety Risks/Education Patient Education: Safety Issues Teaching Recipient: Patient Teaching Methods: Discussion Response to Teaching: Reinforcement Needed Discharge Recommendations Therapy D/C Recommendations: Physical Therapy Home Care Time/GCodes Time In: 1007 Time Out: 1040 Total Billed Treatment Time: 32 Total Billed Treatment visit EVM 15 FA 17 G Codes Necessary: Yes JACQUE KAUFFMAN PT Dec 11, 2018 10:50
[2018-12-11 12:00] VITALS: BP 127/73
--- NOTE | 2018-12-11 12:52 | Consultation-Cardiology ---
HPI-Cardiology Cardiology Consultation Date of Consultation 12/11/18 Date of Admission Time Seen by Provider: 12:00 Indication: Atrial fibrillation HPI Patient is an 83 y/o female with history of chronic atrial fibrillation, hypertension, hypothyroidism. Admitted from Dr. Bahena's office after presenting with complaints of increased weakness, fatigue and palpitations. Noted to be hyponatremic. Complaining of nonproductive cough and increased dyspnea over the past several weeks. Denies any chest pain, peripheral edema or syncope. Continues to complain of weakness. Home Medications & Allergies Allergies: Coded Allergies: Bacitracin Zinc (Verified Allergy, Unknown, 10/06/15) bacitracin (Verified Allergy, Unknown, 10/06/15) benzalkonium chloride (Verified Allergy, Unknown, 10/06/15) gramicidin D (Verified Allergy, Unknown, 10/06/15) hydrocortisone (Verified Allergy, Unknown, 10/06/15) lidocaine (Verified Allergy, Unknown, 10/06/15) meclizine (Verified Allergy, Unknown, 10/06/15) neomycin (Verified Allergy, Unknown, 10/06/15) neomycin sulfate (Verified Allergy, Unknown, 10/06/15) polymyxin B (Verified Allergy, Unknown, 10/06/15) polymyxin B sulfate (Verified Allergy, Unknown, 10/06/15) Home Medication List Reviewed: Yes [id number] Hx Patient Social History Marital Status: Living Status: LIVES IN [place] IN HER OWN HOME Alcohol Use: Denies Use Recreational Drug Use: No Smoking Status: Never a Smoker 2nd Hand Smoke Exposure: No Recent Foreign Travel: No Recent Infectious Disease Expo: No Recent Hopitalizations: No (rotator cuff surgey, 2004, 2008 [place] glaucoma) Physical Abuse Screen: No Sexual Abuse: No Immunizations Up To Date Date of Pneumonia Vaccine: Jul 11, 2014 Date of Influenza Vaccine: Apr 09, 2015 Past Medical History afib, HTN,HLP Family Medical History Significant Family History: Heart Disease Review of Systems-General Review of Systems Constitutional: No chills, No fever; malaise, weakness EENTM: No hearing loss, No hoarseness, No throat pain Respiratory: No cough, No dyspnea on exertion; short of breath; No wheezing Cardiovascular: No chest pain, No edema; palpitations Gastrointestinal: No abdominal pain; loss of appetite Genitourinary: no symptoms reported Musculoskeletal: No back pain; muscle weakness Skin: no symptoms reported Psychiatric/Neurological: Denies Anxiety, Denies Depressed All Other Systems Reviewed Negative Unless Noted: Yes Reviewed Test Results Reviewed Test Results Lab Laboratory Tests 12/10/18 13:09: White Blood Count 10.4, Red Blood Count 4.39, Hemoglobin 13.5, Hematocrit 39, Mean Corpuscular Volume 89, Mean Corpuscular Hemoglobin 31, Mean Corpuscular Hemoglobin Concent 34, Red Cell Distribution Width 12.8, Platelet Count 260, Mean Platelet Volume 9.8, Sodium Level 121*L, Potassium Level 4.7, Chloride Level 93L, Carbon Dioxide Level 20L, Anion Gap 8, Blood Urea Nitrogen 22H, Creatinine 0.99, Estimat Glomerular Filtration Rate 53, BUN/Creatinine Ratio 22, Glucose Level 93, Calcium Level 8.6, Corrected Calcium 9.2, Magnesium Level 1.7L , Total Bilirubin 0.5, Aspartate Amino Transf (AST/SGOT) 46H, Alanine Aminotransferase (ALT/SGPT) 66H, Alkaline Phosphatase 67, Total Protein 6.8, Albumin 3.3, Thyroid Stimulating Hormone (TSH) 5.94H, Free Thyroxine 1.21, Digoxin Level < 0.30L 12/10/18 17:37: Urine Color YELLOW, Urine Clarity CLEAR, Urine pH 7, Urine Specific [place] 1.005L, Urine Protein NEGATIVE, Urine Glucose (UA) NEGATIVE, Urine Ketones NEGATIVE, Urine Nitrite NEGATIVE, Urine Bilirubin NEGATIVE, Urine Urobilinogen NORMAL, Urine Leukocyte Esterase NEGATIVE, Urine RBC (Auto) NEGATIVE, Urine RBC NONE, Urine WBC NONE, Urine Squamous Epithelial Cells NONE, Urine Crystals NONE, Urine Bacteria TRACE, Urine Casts NONE, Urine Mucus NEGATIVE, Urine Culture Indicated NO 12/11/18 05:55: White Blood Count 7.7, Red Blood Count 3.78L, Hemoglobin 11.5, Hematocrit 34L, Mean Corpuscular Volume 89, Mean Corpuscular Hemoglobin 30, Mean Corpuscular Hemoglobin Concent 34, Red Cell Distribution Width 13.0, Platelet Count 260, Mean Platelet Volume 10.0, Sodium Level 126L, Potassium Level 4.6, Chloride Level 101, Carbon Dioxide Level 18L, Anion Gap 7, Blood Urea Nitrogen 22H, Creatinine 0.79, Estimat Glomerular Filtration Rate > 60, BUN/Creatinine Ratio 28, Glucose Level 85, Calcium Level 7.8L, Corrected Calcium 9.0, Magnesium Level 1.8, Total Bilirubin 0.4, Aspartate Amino Transf (AST/SGOT) 37H, Alanine Aminotransferase (ALT/SGPT) 52, Alkaline Phosphatase 53, Total Protein 5.1L, Albumin 2.5L ECG Impression ECG Initial ECG Rhythm: A Fib/Flutter Physical Exam Physical Exam Vital Signs Vital Signs - First Documented 12/10/18 12/10/18 12/11/18 14:05 15:26 15:38 Temp 98.5 Pulse 80 Resp 16 B/P (MAP) 117/70 Pulse Ox 98 O2 Delivery Room Air O2 Flow Rate 4.00 Capillary Refill : Height, Weight, BMI Height: 5'1.00" Weight: 105lbs. 9.6oz. 47.940411nm; 20.0 BMI Method:Stated General Appearance: No Apparent Distress, WD/WN, Mild Distress, Thin Eyes: Right Eye Other (CLOUDY EYE) HEENT: Pharynx Normal Neck: Full Range of Motion, Normal Inspection, Non Tender, Supple Respiratory: Chest Non Tender, Lungs Clear, Normal Breath Sounds, No Accessory Muscle Use, No Respiratory Distress Cardiovascular: Irregularly Irregular Gastrointestinal: Normal Bowel Sounds, No Organomegaly, No Pulsatile Mass, Non Tender, Soft Rectal: Deferred Extremity: Normal Capillary Refill, No Pedal Edema Neurologic/Psychiatric: Alert, Oriented x3, No Motor/Sensory Deficits, Normal Mood/Affect Skin: Warm/Dry Lymphatic: No Adenopathy A/P-Cardiology Admission Diagnosis Hyponatremia Chronic atrial fibrillation CAD HTN HLP Assessment/Plan Hyponatremia- continue IV fluids, management per Dr. Bahena Generalized weakness/debility- PT/OT Persistent atrial fibrillation, currently controlled rate, maintained on Eliquis, continue to monitor heart rate and blood pressure. Echocardiogram done September 2017 revealed normal LV, EF 70-75%, RV cavity size is moderately increased, LA dilatation measuring 4.1cm, RA dilatation, mild to mod MR, mod to severe TR, HTP=60mmHg, I will reevaluate 2D Echo. Pulmonary hypertension-most recent PA pressure done 60mmHg. managed by Dr. Singh Patient had a SPECT perfusion study done in July 2015 at [facility] cardiology reported to have normal left ventricular function with ejection fraction 56 percent and normal LV perfusion. 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 Continue to monitor [id number] score is 4, yearly risk of stroke without oral anticoagulation is 4 percent. She is maintained on Eliquis, continue to monitor Hypertension,restart home blood pressure medications and continue to monitor. Hyperlipidemia, controlled. Continue to monitor as outpatient. 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 Continue to monitor. Nonobstructive carotid artery stenosis-most recent carotid duplex done September 2017, continue to monitor. Hypothyroidism- management per Dr. Josef PORTER Thank you for allowing us to participate in the management of Ms. Mark. This is Maranda Bledsoe PA-C, as a scribe for Dr. Rock. Clinical Quality Measures DVT/VTE Risk/Contraindication: Risk Factor Score Per Nursin RFS Level Per Nursing on Admit: 2=Moderate MARANDA SANDOVAL Dec 11, 2018 12:52
--- NOTE | 2018-12-11 14:50 | NUR ---
Patient was short of breath after getting ADL's completed with nursing aid. Vital signs checked and patient had pulse ox of high 80's. BP 113/54, P69, R16. Patient placed on O2 at 4L per NC and OC Sat came up to 90%. Dr. Bahena notified and orders received.
[2018-12-11] MEDS ORDERED: FUROSEMIDE 40 MG/4 ML INJ (LASIX) IVP NR (15:00)
[2018-12-11 15:38] VITALS: BP 142/74
--- NOTE | 2018-12-11 16:22 | Consultation-Cardiology ---
HPI-Cardiology Cardiology Consultation Date of Consultation 12/11/18 Date of Admission Time Seen by Provider: 16:21 Indication: Atrial fibrillation HPI 83 y/o female with history of chronic atrial fibrillation, hypertension, hypothyroidism. Admitted from Dr. Bahena's office after presenting with complaints of increased weakness, fatigue and palpitations. Noted to be hyponatremic. Complaining of nonproductive cough and increased dyspnea over the past several weeks. Denies any chest pain, peripheral edema or syncope. Continues to complain of weakness. Home Medications & Allergies Allergies: Coded Allergies: Bacitracin Zinc (Verified Allergy, Unknown, 10/06/15) bacitracin (Verified Allergy, Unknown, 10/06/15) benzalkonium chloride (Verified Allergy, Unknown, 10/06/15) gramicidin D (Verified Allergy, Unknown, 10/06/15) hydrocortisone (Verified Allergy, Unknown, 10/06/15) lidocaine (Verified Allergy, Unknown, 10/06/15) meclizine (Verified Allergy, Unknown, 10/06/15) neomycin (Verified Allergy, Unknown, 10/06/15) neomycin sulfate (Verified Allergy, Unknown, 10/06/15) polymyxin B (Verified Allergy, Unknown, 10/06/15) polymyxin B sulfate (Verified Allergy, Unknown, 10/06/15) Home Medication List Reviewed: Yes [id number] Hx Patient Social History Marital Status: Living Status: LIVES IN [place] IN HER OWN HOME Alcohol Use: Denies Use Recreational Drug Use: No Smoking Status: Never a Smoker 2nd Hand Smoke Exposure: No Recent Foreign Travel: No Recent Infectious Disease Expo: No Recent Hopitalizations: No (rotator cuff surgey, 2004, 2008 [facility]) Physical Abuse Screen: No Sexual Abuse: No Immunizations Up To Date Date of Pneumonia Vaccine: Jul 11, 2014 Date of Influenza Vaccine: Apr 09, 2015 Past Medical History afib, HTN,HLP Family Medical History Significant Family History: Heart Disease Family Medical Hx noncontributory to her current condition Review of Systems-General Review of Systems Constitutional: No chills, No fever; malaise, weakness EENTM: No hearing loss, No hoarseness, No throat pain Respiratory: No cough, No dyspnea on exertion; short of breath; No wheezing Cardiovascular: No chest pain, No edema; palpitations Gastrointestinal: No abdominal pain; loss of appetite Genitourinary: no symptoms reported Musculoskeletal: No back pain; muscle weakness Skin: no symptoms reported Psychiatric/Neurological: Denies Anxiety, Denies Depressed All Other Systems Reviewed Negative Unless Noted: Yes Reviewed Test Results Reviewed Test Results Lab Laboratory Tests Test 12/10/18 17:37 12/11/18 05:55 Range/Units Urine Color YELLOW Urine Clarity CLEAR Urine pH 7 5-9 Urine Specific [place] 1.005 L 1.016-1.022 Urine Protein NEGATIVE NEGATIVE Urine Glucose (UA) NEGATIVE NEGATIVE Urine Ketones NEGATIVE NEGATIVE Urine Nitrite NEGATIVE NEGATIVE Urine Bilirubin NEGATIVE NEGATIVE Urine Urobilinogen NORMAL NORMAL MG/DL Urine Leukocyte Esterase NEGATIVE NEGATIVE Urine RBC (Auto) NEGATIVE NEGATIVE Urine RBC NONE /HPF Urine WBC NONE /HPF Urine Squamous Epithelial Cells NONE /HPF Urine Crystals NONE /LPF Urine Bacteria TRACE /HPF Urine Casts NONE /LPF Urine Mucus NEGATIVE /LPF Urine Culture Indicated NO White Blood Count 7.7 4.3-11.0 10^3/uL Red Blood Count 3.78 L 4.35-5.85 10^6/uL Hemoglobin 11.5 11.5-16.0 G/DL Hematocrit 34 L 35-52 % Mean Corpuscular Volume 89 80-99 FL Mean Corpuscular Hemoglobin 30 25-34 PG Mean Corpuscular Hemoglobin Concent 34 32-36 G/DL Red Cell Distribution Width 13.0 10.0-14.5 % Platelet Count 260 130-400 10^3/uL Mean Platelet Volume 10.0 7.4-10.4 FL Sodium Level 126 L 135-145 MMOL/L Potassium Level 4.6 3.6-5.0 MMOL/L Chloride Level 101 98-107 MMOL/L Carbon Dioxide Level 18 L 21-32 MMOL/L Anion Gap 7 5-14 MMOL/L Blood Urea Nitrogen 22 H 7-18 MG/DL Creatinine 0.79 0.60-1.30 MG/DL Estimat Glomerular Filtration Rate > 60 BUN/Creatinine Ratio 28 Glucose Level 85 70-105 MG/DL Calcium Level 7.8 L 8.5-10.1 MG/DL Corrected Calcium 9.0 8.5-10.1 MG/DL Magnesium Level 1.8 1.8-2.4 MG/DL Total Bilirubin 0.4 0.1-1.0 MG/DL Aspartate Amino Transf (AST/SGOT) 37 H 5-34 U/L Alanine Aminotransferase (ALT/SGPT) 52 0-55 U/L Alkaline Phosphatase 53 40-136 U/L Total Protein 5.1 L 6.4-8.2 GM/DL Albumin 2.5 L 3.2-4.5 GM/DL Physical Exam Physical Exam Vital Signs Vital Signs - First Documented 12/10/18 12/10/18 14:05 15:26 Temp 98.5 Pulse 80 Resp 16 B/P (MAP) 117/70 Pulse Ox 98 O2 Delivery Room Air Capillary Refill : Height, Weight, BMI Height: 5'1.00" Weight: 105lbs. 9.6oz. 47.436194oe; 20.0 BMI Method:Stated General Appearance: No Apparent Distress, WD/WN, Mild Distress, Thin Eyes: Right Eye Other (CLOUDY EYE) HEENT: Pharynx Normal Neck: Full Range of Motion, Normal Inspection, Non Tender, Supple Respiratory: Chest Non Tender, Lungs Clear, Normal Breath Sounds, No Accessory Muscle Use, No Respiratory Distress Cardiovascular: No Gallop, No Murmur, Irregularly Irregular Gastrointestinal: Normal Bowel Sounds, No Organomegaly, No Pulsatile Mass, Non Tender, Soft Rectal: Deferred Extremity: Normal Capillary Refill, No Pedal Edema Neurologic/Psychiatric: Alert, Oriented x3, No Motor/Sensory Deficits, Normal Mood/Affect Skin: Warm/Dry Lymphatic: No Adenopathy A/P-Cardiology Admission Diagnosis Hyponatremia Chronic atrial fibrillation CAD HTN HLP Assessment/Plan Hyponatremia, improving slowly, history of hyponatremia- continue IV fluids, management per Dr. Bahena Generalized weakness/debility- PT/OT Persistent atrial fibrillation, currently controlled rate, maintained on Eliquis, continue to monitor heart rate and blood pressure. Echocardiogram done September 2017 revealed normal LV, EF 70-75%, RV cavity size is moderately in creased, LA dilatation measuring 4.1cm, RA dilatation, mild to mod MR, mod to severe TR, HTP=60mmHg, I will reevaluate 2D Echo. Pulmonary hypertension-most recent PA pressure done 60mmHg. managed by Dr. Singh Patient had a SPECT perfusion study done in July 2015 at [facility] cardiology reported to have normal left ventricular function with ejection fraction 56 percent and normal LV perfusion. 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 Continue to monitor [id number] score is 4, yearly risk of stroke without oral anticoagulation is 4 percent. She is maintained on Eliquis, continue to monitor Hypertension,restart home blood pressure medications and continue to monitor. Hyperlipidemia, controlled. Continue to monitor as outpatient. 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 Continue to monitor. Nonobstructive carotid artery stenosis-most recent carotid duplex done September 2017, continue to monitor. Hypothyroidism- management per Dr. Bahena Anxiety GERD Clinical Quality Measures DVT/VTE Risk/Contraindication: Risk Factor Score Per Nursin RFS Level Per Nursing on Admit: 2=Moderate MICHAEL HALL MD Dec 11, 2018 16:22
[2018-12-11 19:21] VITALS: BP 138/66
[2018-12-11] MEDS: PANTOPRAZOLE 40 MG (PROTONIX) TAB PO SCH (21:08)
[2018-12-11] MEDS: DOCUSATE SODIUM 100 MG (COLACE) CAP PO SCH (21:08)
[2018-12-11] MEDS: NS IV 1000 ML 1,000 ML IV SCH (23:33)
[2018-12-12] VITALS (7 sets, daily range): BP systolic 110–148; BP diastolic 52–74
[2018-12-12] MEDS: DIGOXIN 0.125 MG (LANOXIN) TAB PO SCH (01:11)
[2018-12-12] MEDS: LEVOTHYROXINE 75 MCG (LEVOTHROID) TABLET PO SCH (05:44)
[2018-12-12 06:10] LABS: HEMOGLOBIN 11.8 G/DL (11.5-16.0); RED CELL DISTRIBUTION WIDTH 12.7 % (10.0-14.5); WHITE BLOOD COUNT 9.2 10^3/uL (4.3-11.0)
[2018-12-12 06:33] LABS: ALANINE AMINOTRANSFERASE 53 U/L (0-55); ALBUMIN 2.7 GM/DL (3.2-4.5); ALKALINE PHOSPHATASE 60 U/L (40-136); BILIRUBIN,TOTAL 0.5 MG/DL (0.1-1.0); BUN/CREATININE RATIO 28; CALCIUM 7.9 MG/DL (8.5-10.1); CARBON DIOXIDE 18 MMOL/L (21-32); CHLORIDE 98 MMOL/L (98-107); CREATININE SERUM 0.81 MG/DL (0.60-1.30); GFR ESTIMATED > 60; GLUCOSE 91 MG/DL (70-105); MAGNESIUM 1.5 MG/DL (1.8-2.4); POTASSIUM 3.9 MMOL/L (3.6-5.0); TOTAL PROTEIN 5.7 GM/DL (6.4-8.2)
[2018-12-12 06:40] LABS: SODIUM 125 MMOL/L (135-145)
[2018-12-12] MEDS: NS IV 1000 ML 1,000 ML IV SCH ×3 (08:04→16:36)
--- NOTE | 2018-12-12 08:44 | Progress Note ---
Subjective Date Seen by a Provider: Dec 12, 2018 Time Seen by a Provider: 09:00 Subjective/Events-last exam PT REPORTS THAT SHE IS STILL FATIGUED, STILL DID NOT SLEEP WELL LAST NIGHT HER DAUGHTER IS WORRIED ABOUT CONFUSION SHE FEELS LIKE THIS IS DUE TO THE POOR SLEEP AND IS WORRIED THAT SHE NEEDS MORE DEPRESSION TREATMENT. Review of Systems General: Fatigue HEENT: No Head Aches Pulmonary: Dyspnea, Cough Cardiovascular: No: Chest Pain, Palpitations Gastrointestinal: No: Nausea, Abdominal Pain Genitourinary: Frequency Neurological: Weakness, Confusion Objective Exam Last Set of Vital Signs Vital Signs Date Time Temp Pulse Resp B/P (MAP) Pulse Ox O2 Delivery O2 Flow Rate FiO2 12/12/18 08:00 97.9 95 18 131/68 (89) 94 Nasal Cannula 2.00 Capillary Refill : I&O Intake and Output 12/12/18 00:00 Intake Total 1440 ml Balance 1440 ml Intake Oral 1440 ml # Voids 6 General: Alert, Oriented X3, Cooperative, No Acute Distress HEENT: Other (RIGHT EYE CLOUDY, LEFT EYE PUPIL ROUND AND REACTIVE TO LIGHT) Neck: Supple Lungs: Clear to Auscultation, Normal Air Movement Heart: Regular Rate, Other (REG RATE WITH AFIB) Abdomen: Normal Bowel Sounds, Soft Extremities: No Clubbing, No Cyanosis Skin: No Rashes Neuro: Cranial Nerves 3-12 NL Psych/Mental Status: Mental Status NL, Mood NL Results Lab Laboratory Tests 12/12/18 05:40: White Blood Count 9.2, Red Blood Count 3.85L, Hemoglobin 11.8, Hematocrit 34L, Mean Corpuscular Volume 88, Mean Corpuscular Hemoglobin 31, Mean Corpuscular Hemoglobin Concent 35, Red Cell Distribution Width 12.7, Platelet Count 245, Mean Platelet Volume 10.0, Sodium Level 125*L, Potassium Level 3.9, Chloride Level 98, Carbon Dioxide Level 18L, Anion Gap 9, Blood Urea Nitrogen 23H, Creatinine 0.81, Estimat Glomerular Filtration Rate > 60, BUN/Creatinine Ratio 28, Glucose Level 91, Calcium Level 7.9L, Corrected Calcium 8.9, Magnesium Level 1.5L, Total Bilirubin 0.5, Aspartate Amino Transf (AST/SGOT) 38H, Alanine Aminotransferase (ALT/SGPT) 53, Alkaline Phosphatase 60, Total Protein 5.7L, Albumin 2.7L Assessment/Plan Assessment/Plan Assess & Plan/Chief Complaint HYPONATREMIA ATRIAL FIBRILLATION HYPERTENSION HYPOTHYROIDISM CHRONIC ANXIETY HYPERLIPIDEMIA ESOPHAGEAL REFLUX HYPONATREMIA - REPLACE WITH IV FLUIDS - MONITOR SYMPTOMS - CHECK LABS. - WORSE TODAY- CHECK LABS TOMORROW - WILL INCREASE FLUIDS - ENCOURAGE GATORADE/POWERADE. STOP DIURETIC ATRIAL FIBRILLATION - RESUME HOME REGIMEN - DEFER TO DR. HALL - CONTINUE WITH BLOOD THINNERS HYPERTENSION - RESUME HOME REGIMEN HYPOTHYROIDISM - CHECKED THYROID LABS - THEY ARE NORMAL CHRONIC ANXIETY - SUPPORTIVE CARE HYPERLIPIDEMIA - HOLD STATIN AT THIS TIME ESOPHAGEAL REFLUX - HOLD PPI THERAPY FOR NOW Clinical Quality Measures Admission Status Admission Dx HYPONATREMIA ATRIAL FIBRILLATION HYPERTENSION HYPOTHYROIDISM CHRONIC ANXIETY HYPERLIPIDEMIA ESOPHAGEAL REFLUX DVT/VTE Risk/Contraindication: Risk Factor Score Per Nursin RFS Level Per Nursing on Admit: 2=Moderate JUNIOR SELLERS MD Dec 12, 2018 08:44
[2018-12-12] MEDS ORDERED: MAGNESIUM 1 GM/100 ML IVPB 100 ML IV NR (08:45)
[2018-12-12] MEDS: amLODIPine 5 MG (NORVASC) TAB PO SCH (08:56)
[2018-12-12] MEDS: APIXABAN 2.5 MG (ELIQUIS) TABLET PO SCH ×2 (08:56→20:13)
[2018-12-12] MEDS: SIMETHICONE 80 MG (MYLICON) CHEW PO SCH ×4 (08:57→20:13)
[2018-12-12] MEDS: meTOproloL SUCCINATE 50 MG (TOPROL XL) TAB PO SCH (08:58)
[2018-12-12] MEDS: NYSTATIN ORAL SUSP 5 ML UDC PO SCH ×4 (08:58→20:25)
[2018-12-12] MEDS: LACTOBACILLUS ACIDOPHILUS (PROBIOTIC) CAPSULE PO SCH (08:58)
[2018-12-12] MEDS: ARTIFICAL TEARS 0.4 ML UNIT DOSE (REFRESH PLUS) OU SCH ×4 (08:58→20:16)
--- NOTE | 2018-12-12 09:03 | Cardiology Progress Note ---
Subjective Date Seen by Provider: Dec 12, 2018 Time Seen by Provider: 08:57 Subjective/Events-last exam Patient is sitting up in bed, eating breakfast. Denies any chest pain or dyspnea. Objective-Cardiology Exam Last Set of Vital Signs Vital Signs 12/12/18 08:00 Temp 97.9 Pulse 95 Resp 18 B/P (MAP) 131/68 (89) Pulse Ox 94 O2 Delivery Nasal Cannula O2 Flow Rate 2.00 Capillary Refill : I&O Intake and Output 12/11/18 23:59 Intake Total 1440 ml Balance 1440 ml Intake Oral 1440 ml # Voids 6 General: Alert, Oriented X3, Cooperative HEENT: Atraumatic, PERRLA Neck: Supple, No JVD, No Thyromegaly Lungs: Clear to Auscultation, Normal Air Movement Heart: Regular Rate, Normal S1, Normal S2, No Murmurs Abdomen: Normal Bowel Sounds, Soft, No Tenderness, No Hepatosplenomegaly, No Masses Extremities: No Clubbing, No Cyanosis, No Edema, Normal Pulses, No Tenderness/Swelling Skin: No Rashes, No Breakdown, No Significant Lesion Neuro: Normal Gait, Normal Speech, Strength at 5/5 X4 Ext, Normal Tone, Sensation Intact Psych/Mental Status: Mental Status NL, Mood NL Results Lab Laboratory Tests 12/12/18 05:40 A/P-Cardiology Admission Diagnosis Hyponatremia Chronic atrial fibrillation CAD HTN HLP Assessment/Plan Hyponatremia, improving slowly, history of hyponatremia- continue IV fluids, management per Dr. Bahena Generalized weakness/debility- PT/OT Persistent atrial fibrillation, currently controlled rate, maintained on Eliquis, continue to monitor heart rate and blood pressure. 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 managed by Dr. Singh Patient had a SPECT perfusion study done in July 2015 at [facility] cardiology reported to have normal left ventricular function with ejection fraction 56 percent and normal LV perfusion. 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 Continue to monitor [id number] score is 4, yearly risk of stroke without oral anticoagulation is 4 percent. She is maintained on Eliquis, continue to monitor Hypertension,restart home blood pressure medications and continue to monitor. Hyperlipidemia, controlled. Continue to monitor as outpatient. 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 Continue to monitor. Nonobstructive carotid artery stenosis-most recent carotid duplex done September 2017, continue to monitor. Hypothyroidism- management per Dr. Josef Roberto GERD Clinical Quality Measures DVT/VTE Risk/Contraindication: Risk Factor Score Per Nursin RFS Level Per Nursing on Admit: 2=Moderate ABELARDO SANDOVAL Dec 12, 2018 09:03
[2018-12-12] MEDS ORDERED: POLYETHYLENE GLYCOL 17 GM (MIRALAX) PACK PO NR (09:30)
[2018-12-12] MEDS ORDERED: SUCRALFATE 1 GM (CARAFATE) TAB PO PRN (09:45)
--- NOTE | 2018-12-12 09:45 | NUR ---
PATIENT'S DAUGHTER IS SITTING IN A CHAIR OUTSIDE THE PATIENT'S ROOM. SHE SAID SHE IS LETTING HER MOM SLEEP. SHE WILL LET THIS RN KNOW WHEN SHE IS AWAKE SO THAT SHE CAN TAKE THE MEDICATIONS DR SELLERS ORDERED.
--- NOTE | 2018-12-12 09:50 | Physical Therapy Progress Note ---
Therapy Progress Note Attempted to see pt at 845 this date; pt declined PT and requested therapist to return later. JACQUE KAUFFMAN PT Dec 12, 2018 09:50
--- NOTE | 2018-12-12 09:52 | Physical Therapy Progress Note ---
Therapy Progress Note Attempted to see pt at 950 this date. Pt refused therapy noting she is having stomach pains and cannot do it right now. JACQUE KAUFFMAN PT Dec 12, 2018 09:52
--- NOTE | 2018-12-12 11:46 | Physical Therapy Daily Note ---
PT Daily Note-Current Subjective Pt is agreeable to PT this attempt. Reprots she is feeling a bit better. Reports she feels she rested some. Transfers Therapy Code Descriptions/Definitions Functional [place] Measure: 0=Not Assessed/NA 4=Minimal Assistance 1=Total Assistance 5=Supervision or Setup 2=Maximal Assistance 6=Modified [place] 3=Moderate Assistance 7=Complete [place] Therapy Quality Codes: 6 Independent with activity with or without an assistive device 5 Patient requires set up or clean up by helper. Patient completes activity by themselves 4 Supervision or touching assist (CGA). [place] provide cues , steadying assist 3 The helper provides less than half the effort to complete the activity 2 The helper provides more than half the effort to complete the activity 1 Dependent. The helper does all the effort to complete an activity 7 Patient refused to complete or attempt activity 9 The patient did not perform the activity before the current illness or injury 88 Not attempted due to Medical conditions or safety concerns Transfers (B, C, W/C) (FIM): 4 Supine to/from Sit: 4 (min assist and skilled cues for sequencing) Sit to/from Stand: 4 (CGA for safety) Gait Training Gait (FIM): 2 Distance (FIM): 6=000-36 ft Distance: 75 ft Gait Level of Assist: 4 (CGA for safety) Gait Assistive Device: FWW shuffled gait that is slow; skilled cues for foot clearance and posture. Treatments Pt on toilet post treatment with call light in reach. Assessment Pt requires encouragement to participate but does so. Seems to be feeling better. Gross functional weakness noted PT [facility] Goals [facility] Goals PT Healthcare Science Specialist Goals Time Frame: Dec 18, 2018 Transfers (B,C,W/C) (FIM): 7 Gait (FIM): 6 Gait distance (FIM): 3=150 ft Gait Assistive Device: FWW PT Plan Problem List Problem List: Activity Tolerance, Functional Strength, Safety Treatment/Plan Treatment Plan: Continue Plan of Care Treatment Plan: Bed Mobility, Education, Functional Activity Natty, Functional Strength, Gait, Safety, Therapeutic Exercise, Transfers Treatment Duration: Dec 18, 2018 Frequency: 6 times per week Estimated Hrs Per Day: .5 hour per day Patient and/or Family Agrees t: Yes Safety Risks/Education Patient Education: Safety Issues Teaching Recipient: Patient Teaching Methods: Discussion Response to Teaching: Reinforcement Needed Time/GCodes Time In: 1105 Time Out: 1121 Total Billed Treatment Time: 16 Total Billed Treatment visit GT 16 JACQUE KAUFFMAN PT Dec 12, 2018 11:46
[2018-12-12] MEDS ORDERED: PATIENT MAY USE OWN MEDS, ALL MC SCH (13:30)
--- NOTE | 2018-12-12 13:30 | NUR ---
LEFT MESSAGE AT DR SELLERS'S OFFICE REGARDING A INCENTIVE SPIROMETER. THE PATIENT'S DAUGHTER ASKED ABOUT IT. SHE REPORTED THAT DR SELLERS TOLD THEM SHE WOULD GET THEM ONE.
[2018-12-12] MEDS: Brinzolamide/Brimonidine Tart (Simbrinza) 1%-0.2% Eye Drops OS SCH ×2 (14:38→20:15)
--- NOTE | 2018-12-12 14:39 | NUR ---
DAUGHTER STATED THAT THEY ALREADY DID THE EYE DROPS THIS MORNING.
--- NOTE | 2018-12-12 15:05 | NUR ---
IRF Evaluation Order received to evaluate patient for the ARU. Chart reviewed and discussed with Dr. Hudson - patient accepted. CM/SS notified. Thank you for this referral.
--- NOTE | 2018-12-12 15:19 | Cardiology Progress Note ---
Subjective Date Seen by Provider: Dec 12, 2018 Time Seen by Provider: 15:19 Subjective/Events-last exam patient is laying down in bed, feeling better. No new complaint Review of Systems General: No Chills, No Night Sweats, No Fatigue, No Malaise, No Appetite, No Other HEENT: No Head Aches, No Visual Changes, No Eye Pain, No Ear Pain, No Dysphasia, No Sinus Congestion, No Post Nasal Drip, No Sore Throat, No Other Pulmonary: No Dyspnea, No Cough, No Pleuritic Chest Pain, No Other Cardiovascular: No: Chest Pain, Palpitations, Orthopnea, Paroxysmal Noc. Dyspnea, Edema, Lt Headedness, Other Objective-Cardiology Exam Last Set of Vital Signs Vital Signs 12/12/18 12/12/18 12:00 13:00 Temp 98.6 Pulse 71 Resp 18 B/P (MAP) 110/52 (71) Pulse Ox 93 O2 Delivery Room Air Capillary Refill : I&O Intake and Output 12/11/18 23:59 Intake Total 1440 ml Balance 1440 ml Intake Oral 1440 ml # Voids 6 General: Alert, Oriented X3, Cooperative HEENT: Atraumatic, PERRLA Neck: Supple, No JVD, No Thyromegaly Lungs: Clear to Auscultation, Normal Air Movement Heart: Regular Rate, Normal S1, Normal S2, No Murmurs Abdomen: Normal Bowel Sounds, Soft, No Tenderness, No Hepatosplenomegaly, No Masses Extremities: No Clubbing, No Cyanosis, No Edema, Normal Pulses, No Tenderness/Swelling Skin: No Rashes, No Breakdown, No Significant Lesion Neuro: Normal Gait, Normal Speech, Strength at 5/5 X4 Ext, Normal Tone, Sensation Intact Psych/Mental Status: Mental Status NL, Mood NL Results Lab Laboratory Tests 12/12/18 05:40 A/P-Cardiology Admission Diagnosis Hyponatremia Chronic atrial fibrillation CAD HTN HLP Assessment/Plan Hyponatremia, improving slowly, history of hyponatremia- continue IV fluids, management per Dr. Bahena Generalized weakness/debility- PT/OT Persistent atrial fibrillation, currently controlled rate, maintained on Eliquis, continue to monitor heart rate and blood pressure. 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 managed by Dr. Singh Patient had a SPECT perfusion study done in July 2015 at [facility] cardiology reported to have normal left ventricular function with ejection fraction 56 percent and normal LV perfusion. I will continue monitoring History of tachy/bradycardia episodes with episode of bradycardia noted on Holter monitor in 2014, discussed pacemaker implantation with her inventory administrator in the past and decision was made to monitor closely, tolerating current medication well. Continue to monitor [id number] score is 4, yearly risk of stroke without oral anticoagulation is 4 percent. She is maintained on Eliquis, continue to monitor Hypertension,restart home blood pressure medications and continue to monitor. Hyperlipidemia, controlled. Continue to monitor as outpatient. 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 Continue to monitor. Nonobstructive carotid artery stenosis-most recent carotid duplex done September 2017, continue to monitor. Hypothyroidism- management per Dr. Josef PORTER Clinical Quality Measures DVT/VTE Risk/Contraindication: Risk Factor Score Per Nursin RFS Level Per Nursing on Admit: 2=Moderate MICHAEL HALL MD Dec 12, 2018 15:19
[2018-12-12] MEDS: PANTOPRAZOLE 40 MG (PROTONIX) TAB PO SCH (20:13)
[2018-12-12] MEDS: ALPRAZolam 0.25 MG (XANAX) TAB PO SCH (20:13)
[2018-12-12] MEDS: DOCUSATE SODIUM 100 MG (COLACE) CAP PO SCH (20:13)
[2018-12-12] MEDS: POLYETHYLENE GLYCOL 17 GM (MIRALAX) PACK PO SCH (20:25)
[2018-12-13 03:37] VITALS: BP 129/74
[2018-12-13] MEDS: LEVOTHYROXINE 75 MCG (LEVOTHROID) TABLET PO SCH (05:36)
[2018-12-13] MEDS: NS IV 1000 ML 1,000 ML IV SCH ×2 (05:36→21:16)
[2018-12-13 06:28] LABS: BUN/CREATININE RATIO 21; CALCIUM 7.2 MG/DL (8.5-10.1); CARBON DIOXIDE 17 MMOL/L (21-32); CHLORIDE 100 MMOL/L (98-107); GFR ESTIMATED > 60; GLUCOSE 95 MG/DL (70-105); MAGNESIUM 1.5 MG/DL (1.8-2.4); POTASSIUM 4.3 MMOL/L (3.6-5.0)
[2018-12-13 06:30] LABS: SODIUM 124 MMOL/L (135-145)
--- NOTE | 2018-12-13 07:00 | NUR ---
Dr. Bahena notified of NA at 124. No new order rec at this time - Dr. call will address when rounding on pt today. also informed of pt being placed on O2 at approx. 4 am due to low sats in 80's after ambulating back from bathroom (prior to bathroom visit O2 sat was 94%). Currently maintaining sat of 93% on 3L NC.
[2018-12-13 08:00] VITALS: BP 124/57
[2018-12-13] MEDS: SIMETHICONE 80 MG (MYLICON) CHEW PO SCH ×4 (08:48→19:42)
[2018-12-13] MEDS: Brinzolamide/Brimonidine Tart (Simbrinza) 1%-0.2% Eye Drops OS SCH ×2 (08:49→19:42)
[2018-12-13] MEDS ORDERED: SODIUM CHLORIDE 1 GM TAB (NON-FORMULARY) PO ONE (09:45)
[2018-12-13] MEDS: meTOproloL SUCCINATE 50 MG (TOPROL XL) TAB PO SCH (10:11)
[2018-12-13] MEDS: amLODIPine 5 MG (NORVASC) TAB PO SCH (10:12)
[2018-12-13] MEDS: NYSTATIN ORAL SUSP 5 ML UDC PO SCH ×4 (10:12→19:41)
[2018-12-13] MEDS: LACTOBACILLUS ACIDOPHILUS (PROBIOTIC) CAPSULE PO SCH (10:12)
[2018-12-13] MEDS: APIXABAN 2.5 MG (ELIQUIS) TABLET PO SCH ×2 (10:12→19:43)
[2018-12-13] MEDS: ARTIFICAL TEARS 0.4 ML UNIT DOSE (REFRESH PLUS) OU SCH ×4 (10:13→19:47)
[2018-12-13] MEDS: MAGNESIUM 1 GM/100 ML IVPB 100 ML IV SCH ×2 (10:17→12:16)
--- NOTE | 2018-12-13 11:15 | Physical Therapy Daily Note ---
PT Daily Note-Current Subjective Patient reports fatigue, however, agrees to PT. Pain Numeric Pain Scale: 0-No Pain Location: No Pain Reported Mental Status Patient Orientation: Person, Time, Situation Attachments: Oxygen, IV Transfers Therapy Code Descriptions/Definitions Functional [place] Measure: 0=Not Assessed/NA 4=Minimal Assistance 1=Total Assistance 5=Supervision or Setup 2=Maximal Assistance 6=Modified [place] 3=Moderate Assistance 7=Complete [place] Therapy Quality Codes: 6 Independent with activity with or without an assistive device 5 Patient requires set up or clean up by helper. Patient completes activity by themselves 4 Supervision or touching assist (CGA). [place] provide cues , steadying assist 3 The helper provides less than half the effort to complete the activity 2 The helper provides more than half the effort to complete the activity 1 Dependent. The helper does all the effort to complete an activity 7 Patient refused to complete or attempt activity 9 The patient did not perform the activity before the current illness or injury 88 Not attempted due to Medical conditions or safety concerns Transfers (B, C, W/C) (FIM): 5 Scootin Rollin Supine to/from Sit: 5 Sit to/from Stand: 5 patient toileted self without difficulty Gait Training Gait (FIM): 5 Distance (FIM): 3=150 ft Distance: 225' Gait Level of Assist: 5 Gait Assistive Device: FWW slow, steady gait sequence Assessment Patient declined exercises on this date due to fatigue. Plan transfer to ARU per physician. PT [facility] Goals Chief Writer Goals PT [facility] Goals Time Frame: Dec 18, 2018 Transfers (B,C,W/C) (FIM): 7 Gait (FIM): 6 Gait distance (FIM): 3=150 ft Gait Assistive Device: FWW PT Plan Treatment/Plan Treatment Plan: Continue Plan of Care Treatment Plan: Bed Mobility, Education, Functional Activity Natty, Functional Strength, Gait, Safety, Therapeutic Exercise, Transfers Treatment Duration: Dec 18, 2018 Frequency: 6 times per week Estimated Hrs Per Day: .5 hour per day Patient and/or Family Agrees t: Yes Time/GCodes Time In: 1040 Time Out: 1050 Total Billed Treatment Time: 10 Total Billed Treatment 1 visit GT 10 min RUDDY WILSON PT Dec 13, 2018 11:15
--- NOTE | 2018-12-13 11:50 | Cardiology Progress Note ---
Subjective Date Seen by Provider: Dec 13, 2018 Time Seen by Provider: 11:48 Subjective/Events-last exam Patient is sitting up in chair, IV was pulled out by patient by accident, has some bruising and mild edema to left forearm. Patient appears anxious. Denies any chest pain or dyspnea. Objective-Cardiology Exam Last Set of Vital Signs Vital Signs 12/13/18 12/13/18 08:00 08:10 Temp 97.2 Pulse 99 Resp 16 B/P (MAP) 124/57 (79) Pulse Ox 92 O2 Delivery Room Air Capillary Refill : I&O Intake and Output 12/13/18 00:00 Intake Total 2360 ml Balance 2360 ml Intake Oral 1260 ml IV Total 1100 ml # Voids 7 # Bowel Movements 2 General: Alert, Oriented X3, Cooperative HEENT: Atraumatic, PERRLA Neck: Supple, No JVD, No Thyromegaly Lungs: Clear to Auscultation, Normal Air Movement Heart: Normal S1, Normal S2, No Murmurs, Other (irreularly irregular, slightly tachycardic) Abdomen: Normal Bowel Sounds, Soft, No Tenderness, No Hepatosplenomegaly, No Masses Extremities: No Clubbing, No Cyanosis, No Edema, Normal Pulses, No Tenderness/Swelling Skin: No Rashes, No Breakdown, No Significant Lesion Neuro: Normal Gait, Normal Speech, Strength at 5/5 X4 Ext, Normal Tone, Sensation Intact Psych/Mental Status: Mental Status NL, Mood NL Results Lab Laboratory Tests 12/13/18 05:45 A/P-Cardiology Admission Diagnosis Hyponatremia Chronic atrial fibrillation CAD HTN HLP Assessment/Plan Hyponatremia, improving slowly, history of hyponatremia- continue IV fluids, management per Dr. Bahena Generalized weakness/debility- PT/OT Persistent atrial fibrillation, currently slightly tachycardic, maintained on Eliquis, continue to monitor heart rate and blood pressure. Echocardiogram done 12/11/18 revealed EF 55-65% Left atrial dilatation 4.2cm, MVP with mod MR, mod-sev TR PA 50-55mmHg. I will incresae Toprol XL to 100mg, continue to monitor. Pulmonary hypertension-most recent PA pressure done 50-55mmHg. managed by Dr. Singh Patient had a SPECT perfusion study done in July 2015 at [facility] cardiology reported to have normal left ventricular function with ejection fraction 56 percent and normal LV perfusion. I will continue monitoring History of tachy/bradycardia episodes with episode of bradycardia noted on Holter monitor in 2014, discussed pacemaker implantation with her care rep in the past and decision was made to monitor closely, tolerating current medication well. Continue to monitor [id number] score is 4, yearly risk of stroke without oral anticoagulation is 4 percent. She is maintained on Eliquis, continue to monitor Hypertension,restart home blood pressure medications and continue to monitor. Hyperlipidemia, controlled. Continue to monitor as outpatient. 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 Continue to monitor. Nonobstructive carotid artery stenosis-most recent carotid duplex done September 2017, continue to monitor. Hypothyroidism- management per Dr. Josef PORTER Clinical Quality Measures DVT/VTE Risk/Contraindication: Risk Factor Score Per Nursin RFS Level Per Nursing on Admit: 2=Moderate ABELARDO SANDOVAL Dec 13, 2018 11:50
[2018-12-13 12:00] VITALS: BP 134/59
[2018-12-13] MEDS: ACETAMINOPHEN 325 MG TABLET PO PRN ×2 (13:34→13:50)
--- NOTE | 2018-12-13 14:00 | NUR ---
NOTE THAT PT'S DAUGHTER IS OUTSIDE PT'S ROOM AND VOICED TO STAFF PT WAS SLEEPING AND TO LET HER SLEEP -- I&O WILL BE DONE WHEN PT AWAKE PER PT'S DAUGHTER
--- NOTE | 2018-12-13 16:47 | Cardiology Progress Note ---
Subjective Date Seen by Provider: Dec 13, 2018 Time Seen by Provider: 16:46 Subjective/Events-last exam patient is laying down in bed, had some shortness of breath last night overall feeling better. Review of Systems General: No Chills, No Night Sweats; Fatigue, Malaise; No Appetite, No Other HEENT: No Head Aches, No Visual Changes, No Eye Pain, No Ear Pain, No Dysph [place]iston, No Sinus Congestion, No Post Nasal Drip, No Sore Throat, No Other Pulmonary: Dyspnea; No Cough, No Pleuritic Chest Pain, No Other Cardiovascular: No: Chest Pain, Palpitations, Orthopnea, Paroxysmal Noc. Dyspnea, Edema, Lt Headedness, Other Objective-Cardiology Exam Last Set of Vital Signs Vital Signs 12/13/18 12/13/18 12/13/18 12:00 12:42 13:50 Temp 98.7 Pulse 82 Resp 16 B/P (MAP) 134/59 (84) Pulse Ox 91 O2 Delivery Room Air Capillary Refill : I&O Intake and Output 12/13/18 00:00 Intake Total 2360 ml Balance 2360 ml Intake Oral 1260 ml IV Total 1100 ml # Voids 7 # Bowel Movements 2 General: Alert, Oriented X3, Cooperative HEENT: Atraumatic, PERRLA Neck: Supple, No JVD, No Thyromegaly Lungs: Clear to Auscultation, Normal Air Movement Heart: Normal S1, Normal S2, No Murmurs, Other (irreularly irregular, slightly tachycardic) Abdomen: Normal Bowel Sounds, Soft, No Tenderness, No Hepatosplenomegaly, No Masses Extremities: No Clubbing, No Cyanosis, No Edema, Normal Pulses, No Tenderness/Swelling Skin: No Rashes, No Breakdown, No Significant Lesion Neuro: Normal Gait, Normal Speech, Strength at 5/5 X4 Ext, Normal Tone, Sensation Intact Psych/Mental Status: Mental Status NL, Mood NL Results Lab Laboratory Tests 12/13/18 05:45 A/P-Cardiology Admission Diagnosis Hyponatremia Chronic atrial fibrillation CAD HTN HLP Assessment/Plan Hyponatremia, improving slowly, history of hyponatremia- continue IV fluids, management per Dr. Bahena Generalized weakness/debility- PT/OT Persistent atrial fibrillation, currently slightly tachycardic, maintained on Eliquis, continue to monitor heart rate and blood pressure. Echocardiogram done 12/11/18 revealed EF 55-65% Left atrial dilatation 4.2cm, MVP with mod MR, mod-sev TR PA 50-55mmHg. I will increase Toprol XL to 100mg, continue to monitor. Pulmonary hypertension-most recent PA pressure done 50-55mmHg. managed by Dr. Singh Patient had a SPECT perfusion study done in July 2015 at [facility] iology reported to have normal left ventricular function with ejection fraction 56 percent and normal LV perfusion. I will continue monitoring History of tachy/bradycardia episodes with episode of bradycardia noted on Holter monitor in 2014, discussed pacemaker implantation with her car tracer i n the past and decision was made to monitor closely, tolerating current medication well. Continue to monitor [id number] score is 4, yearly risk of stroke without oral anticoagulation is 4 percent. She is maintained on Eliquis, continue to monitor Hypertension,restart home blood pressure medications and continue to monitor. Hyperlipidemia, controlled. Continue to monitor as outpatient. 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 Continue to monitor. Nonobstructive carotid artery stenosis-most recent carotid duplex done September, continue to monitor. Hypothyroidism- management per Dr. Josef PORTER Clinical Quality Measures DVT/VTE Risk/Contraindication: Risk Factor Score Per Nursin RFS Level Per Nursing on Admit: 2=Moderate MICHAEL HALL MD Dec 13, 2018 16:47
[2018-12-13 16:59] VITALS: BP 118/65
--- NOTE | 2018-12-13 17:01 | NUR ---
NOTE FAMILY STILL NOT LETTING STAFF IN -- DAUGHTER VOICED PT SLEEPING
[2018-12-13 19:17] VITALS: BP 118/73
[2018-12-13] MEDS: POLYETHYLENE GLYCOL 17 GM (MIRALAX) PACK PO SCH (19:41)
[2018-12-13] MEDS: ALPRAZolam 0.25 MG (XANAX) TAB PO SCH (19:42)
[2018-12-13] MEDS: PANTOPRAZOLE 40 MG (PROTONIX) TAB PO SCH (19:43)
[2018-12-13] MEDS: DOCUSATE SODIUM 100 MG (COLACE) CAP PO SCH (19:43)
--- NOTE | 2018-12-13 21:18 | Progress Note ---
Subjective Date Seen by a Provider: Dec 13, 2018 Time Seen by a Provider: 09:30 Subjective/Events-last exam PT REPORTS THAT SHE DOES FEEL A LITTLE BIT BETTER TODAY -BUT SHE WOKE UP EARLY THIS MORNING TO GO TO THE RESTROOM WITH ACUTE ONSET OF SHORTNESS OF BREATH WHEN SHE WAS OFF OF HER OXYGEN TO AMBULATE TO THE RESTROOM. SHE REPORTEDLY HAD HER OXYGEN DOWN TO 88% AND IT TOOK SEVERAL MINUTES TO GET HER OXYGEN BACK UP TO 92% PER NURSING REPORT. Review of Systems General: Fatigue, Malaise HEENT: No Head Aches Pulmonary: Dyspnea; No Cough Cardiovascular: No: Chest Pain Gastrointestinal: No: Nausea, Abdominal Pain Genitourinary: No Dysuria Neurological: Weakness, Confusion (INTERMITTENT AT NIGHT) Objective Exam Last Set of Vital Signs Vital Signs Date Time Temp Pulse Resp B/P (MAP) Pulse Ox O2 Delivery O2 Flow Rate FiO2 12/13/18 19:40 Room Air 12/13/18 19:17 96.0 77 22 118/73 (88) 100 0.50 Capillary Refill : I&O Intake and Output 12/13/18 00:00 Intake Total 2360 ml Balance 2360 ml Intake Oral 1260 ml IV Total 1100 ml # Voids 7 # Bowel Movements 2 General: Alert, Oriented X3, Cooperative HEENT: Atraumatic, Other (RIGHT EYE CLOUDY, LEFT EYE CLEAR - PUPIL ROUND AND REACTIVE) Neck: Supple, No JVD, No Thyromegaly Lungs: Clear to Auscultation, Normal Air Movement Heart: Other (irreularly irregular, slightly tachycardic) Abdomen: Normal Bowel Sounds, Soft, No Tenderness Extremities: No Clubbing, No Cyanosis Skin: No Rashes, No Breakdown Neuro: Normal Speech Psych/Mental Status: Mental Status NL, Mood NL Results Lab Laboratory Tests 12/13/18 05:45: Sodium Level 124*L, Potassium Level 4.3, Chloride Level 100, Carbon Dioxide Level 17L, Anion Gap 7, Blood Urea Nitrogen 15, Creatinine 0.70, Estimat Glomerular Filtration Rate > 60, BUN/Creatinine Ratio 21, Glucose Level 95, Calcium Level 7.2L, Magnesium Level 1.5L Assessment/Plan Assessment/Plan Assess & Plan/Chief Complaint HYPONATREMIA ATRIAL FIBRILLATION HYPERTENSION HYPOTHYROIDISM CHRONIC ANXIETY HYPERLIPIDEMIA ESOPHAGEAL REFLUX HYPONATREMIA - REPLACE WITH IV FLUIDS - MONITOR SYMPTOMS - CHECK LABS. - WORSE TODAY- CHECK LABS TOMORROW - START ON SODIUM CHLORIDE TAB, MONITOR LAB IN MORNING - ENCOURAGE GATORADE/POWERADE. ATRIAL FIBRILLATION - RESUME HOME REGIMEN - DEFER TO DR. HALL - CONTINUE WITH BLOOD THINNERS HYPERTENSION - RESUME HOME REGIMEN HYPOTHYROIDISM - CHECKED THYROID LABS - THEY ARE NORMAL CHRONIC ANXIETY - SUPPORTIVE CARE HYPERLIPIDEMIA - HOLD STATIN AT THIS TIME ESOPHAGEAL REFLUX - HOLD PPI THERAPY FOR NOW STARTED PHYSICAL THERAPY DUE TO HER WEAKNESS. Clinical Quality Measures Admission Status Admission Dx HYPONATREMIA ATRIAL FIBRILLATION HYPERTENSION HYPOTHYROIDISM CHRONIC ANXIETY HYPERLIPIDEMIA ESOPHAGEAL REFLUX DVT/VTE Risk/Contraindication: Risk Factor Score Per Nursin RFS Level Per Nursing on Admit: 2=Moderate JUNIOR SELLERS MD Dec 13, 2018 21:18
[2018-12-13] MEDS ORDERED: FUROSEMIDE 40 MG/4 ML INJ (LASIX) ONE (22:49)
[2018-12-13] MEDS ORDERED: ALPRAZolam 0.25 MG (XANAX) TAB PO ONE (23:00)
[2018-12-13] MEDS ORDERED: FUROSEMIDE 40 MG/4 ML INJ (LASIX) IVP ONE (23:00)
[2018-12-14] VITALS (18 sets, daily range): BP systolic 106–185; BP diastolic 49–99
[2018-12-14] MEDS: DIGOXIN 0.125 MG (LANOXIN) TAB PO SCH (03:20)
[2018-12-14 06:14] LABS: BUN/CREATININE RATIO 23; CALCIUM 7.5 MG/DL (8.5-10.1); CARBON DIOXIDE 18 MMOL/L (21-32); CHLORIDE 96 MMOL/L (98-107); CREATININE SERUM 0.65 MG/DL (0.60-1.30); GFR ESTIMATED > 60; GLUCOSE 108 MG/DL (70-105); MAGNESIUM 1.9 MG/DL (1.8-2.4); POTASSIUM 4.3 MMOL/L (3.6-5.0)
[2018-12-14 06:17] LABS: SODIUM 122 MMOL/L (135-145)
[2018-12-14] MEDS: LEVOTHYROXINE 75 MCG (LEVOTHROID) TABLET PO SCH (06:17)
--- NOTE | 2018-12-14 07:34 | Cardiology Progress Note ---
Subjective Date Seen by Provider: Dec 14, 2018 Time Seen by Provider: 07:31 Subjective/Events-last exam patient is laying down in bed, feeling better. Having generalized weakness. Review of Systems General: No Chills, No Night Sweats; Fatigue, Malaise; No Appetite, No Other HEENT: No Head Aches, No Visual Changes, No Eye Pain, No Ear Pain, No Dysphasia, No Sinus Congestion, No Post Nasal Drip, No Sore Throat, No Other Pulmonary: No Dyspnea, No Cough, No Pleuritic Chest Pain, No Other Cardiovascular: No: Chest Pain, Palpitations, Orthopnea, Paroxysmal Noc. Dyspnea, Edema, Lt Headedness, Other Objective-Cardiology Exam Last Set of Vital Signs Vital Signs 12/14/18 12/14/18 04:26 07:00 Temp 98.3 Pulse 87 Resp 20 B/P (MAP) 143/68 (93) Pulse Ox 91 O2 Delivery Nasal Cannula O2 Flow Rate 3.00 Capillary Refill : I&O Intake and Output 12/14/18 00:00 Intake Total 3275 ml Output Total 650 ml Balance 2625 ml Intake Oral 1075 ml IV Total 2200 ml Output Urine Total 650 ml # Voids 1 # Bowel Movements 1 General: Alert, Oriented X3, Cooperative HEENT: Atraumatic, PERRLA Neck: Supple, No JVD, No Thyromegaly Lungs: Clear to Auscultation, Normal Air Movement Heart: Normal S1, Normal S2, No Murmurs, Other (irreularly irregular, slightly tachycardic) Abdomen: Normal Bowel Sounds, Soft, No Tenderness, No Hepatosplenomegaly, No Masses Extremities: No Clubbing, No Cyanosis, No Edema, Normal Pulses, No Tenderness/Swelling Skin: No Rashes, No Breakdown, No Significant Lesion Neuro: Normal Gait, Normal Speech, Strength at 5/5 X4 Ext, Normal Tone, Sensa tion Intact Psych/Mental Status: Mental Status NL, Mood NL Results Lab Laboratory Tests 12/14/18 05:39 A/P-Cardiology Admission Diagnosis Hyponatremia Chronic atrial fibrillation CAD HTN HLP Assessment/Plan Hyponatremia, persistent, slightly worse today. Managed by primary care team Generalized weakness/debility- PT/OT Persistent atrial fibrillation, maintained on Eliquis, continue to monitor heart rate and blood pressure. Echocardiogram done 12/11/18 revealed EF 55-65% Left atrial dilatation 4.2cm, MVP with mod MR, mod-sev TR PA 50-55mmHg. continue to monitor heart rate on the higher dose of Toprol, continue on digoxin, appear to be more tachycardic today, I will give her one dose of Lopressor IV, monitor tolerance and response, monitor tolerance to a higher dose of Toprol Pulmonary hypertension-most recent PA pressure done 50-55mmHg. managed by Dr. Singh Patient had a SPECT perfusion study done in July 2015 at [facility] cardiology reported to have normal left ventricular function with ejection fraction 56 percent and normal LV perfusion. I will continue monitoring History of tachy/bradycardia episodes with episode of bradycardia noted on Holter monitor in 2014, discussed pacemaker implantation with her ux ui designer in the past and decision was made to monitor closely, tolerating current medication well. Continue to monitor [id number] score is 4, yearly risk of stroke without oral anticoagulation is 4 percent. She is maintained on Eliquis, continue to monitor Hypertension,restart home blood pressure medications and continue to monitor. Hyperlipidemia, controlled. Continue to monitor as outpatient. 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 Continue to monitor. Nonobstructive carotid artery stenosis-most recent carotid duplex done September 2017, continue to monitor. Hypothyroidism- management per Dr. Josef PORTER Clinical Quality Measures DVT/VTE Risk/Contraindication: Risk Factor Score Per Nursin RFS Level Per Nursing on Admit: 2=Moderate MICHAEL HALL MD Dec 14, 2018 07:34
--- NOTE | 2018-12-14 07:36 | NUR ---
UP TO BSC, SOB WITH ANY EXERTION, 24 HOUR URINE COLLECTION STARTED ORDERED
[2018-12-14] MEDS ORDERED: meTOprolol 5 MG/5 ML (LOPRESSOR) VIAL ONE (07:52)
[2018-12-14] MEDS ORDERED: meTOprolol 5 MG/5 ML (LOPRESSOR) VIAL IV NR (08:00)
--- NOTE | 2018-12-14 08:00 | NUR ---
DR HALL CALLED NURSE AND ORDERED TO TRANSFER TO ICU FOR GOULD RATE 140'S
--- NOTE | 2018-12-14 08:02 | NUR ---
METOPROLOL 5MG GIVEN IV ORDERED BY DR HALL, HEART RATE 114, BP 191/90
--- NOTE | 2018-12-14 08:09 | NUR ---
TRANSFERRED TO ICU #5, REPORT GIVEN TO RN
--- NOTE | 2018-12-14 08:10 | NUR ---
Pt arrived to ICU at this time via bed. 4th floor RN at bedside at this time. Bedside report received. Pt placed on ICU monitor. VSS. Will continue to monitor.
--- NOTE | 2018-12-14 08:18 | NUR ---
DR SELLERS NOTIFIED OF TRANSFER TO ICU, FAMILY AT BEDSIDE
[2018-12-14] MEDS ORDERED: meTOproloL SUCCINATE 50 MG (TOPROL XL) TAB PO SCH (09:00)
[2018-12-14] MEDS: ARTIFICAL TEARS 0.4 ML UNIT DOSE (REFRESH PLUS) OU SCH ×4 (09:01→20:45)
[2018-12-14] MEDS: Brinzolamide/Brimonidine Tart (Simbrinza) 1%-0.2% Eye Drops OS SCH ×2 (09:01→20:44)
[2018-12-14] MEDS: amLODIPine 5 MG (NORVASC) TAB PO SCH (09:01)
[2018-12-14] MEDS: LACTOBACILLUS ACIDOPHILUS (PROBIOTIC) CAPSULE PO SCH (09:01)
[2018-12-14] MEDS: APIXABAN 2.5 MG (ELIQUIS) TABLET PO SCH ×2 (09:01→20:43)
[2018-12-14] MEDS: meTOprolol SUCCINATE 100 MG (TOPROL XL) TAB PO SCH (09:02)
[2018-12-14] MEDS: SIMETHICONE 80 MG (MYLICON) CHEW PO SCH ×4 (09:02→20:43)
[2018-12-14] MEDS: NYSTATIN ORAL SUSP 5 ML UDC PO SCH ×4 (09:03→20:43)
[2018-12-14] MEDS: NS IV 1000 ML 1,000 ML IV SCH (09:10)
[2018-12-14] MEDS: SODIUM CHLORIDE 1 GM TAB (NON-FORMULARY) PO SCH ×2 (09:36→20:45)
--- NOTE | 2018-12-14 11:44 | Diagnostic Imaging Report ---
INDICATION: Cough and dyspnea. Time of exam: 11:26 AM Correlation is made with prior study from 12/10/2018. The heart size is stable. There are bilateral pulmonary infiltrates. There appear to be mixed interstitial and airspace right upper and right lower lobe with some consolidation in the left base. There are small bilateral effusions. There is no pneumothorax. IMPRESSION: Bilateral pulmonary infiltrates, increased significantly since the examination from 4 days earlier. Small bilateral effusions have also increased since prior. Dictated by: Dictated on workstation # [id number]
[2018-12-14] MEDS: ALPRAZolam 0.25 MG (XANAX) TAB PO PRN ×2 (12:22→22:18)
--- NOTE | 2018-12-14 12:46 | Progress Note ---
Subjective Date Seen by a Provider: Dec 14, 2018 Time Seen by a Provider: 10:30 Subjective/Events-last exam PT REPORTS THAT SHE HAS A COUGH THIS MORNING, SHE ADMITS TO CHOKING ON HER SODIUM TABLET YESTERDAY. SHE HAD AN EPISODE OF FEELING LIKE HER HEART RATE SPIKED EARLY THIS MORNING. Review of Systems General: Fatigue HEENT: No Head Aches Pulmonary: Dyspnea Cardiovascular: No: Chest Pain, Palpitations Gastrointestinal: No: Nausea, Abdominal Pain Genitourinary: No Dysuria Neurological: Weakness, Confusion Objective Exam Last Set of Vital Signs Vital Signs Date Time Temp Pulse Resp B/P (MAP) Pulse Ox O2 Delivery O2 Flow Rate FiO2 12/14/18 12:07 98.1 89 35 133/69 (90) 95 Nasal Cannula 3.00 Capillary Refill : I&O Intake and Output 12/14/18 00:00 Intake Total 3275 ml Output Total 650 ml Balance 2625 ml Intake Oral 1075 ml IV Total 2200 ml Output Urine Total 650 ml # Voids 1 # Bowel Movements 1 General: Alert, Oriented X3, Cooperative, No Acute Distress HEENT: Atraumatic, Other (RIGHT EYE CLOUDY, LEFT EYE CLEAR - PUPIL ROUND AND REACTIVE) Neck: Supple Lungs: Other (CRACKLES IN RIGHT UPPER LOBE, BASES OF BILATERAL LOBES ARE WITHOUT CRACKLES) Heart: Other (irreularly irregular, slightly tachycardic) Abdomen: Normal Bowel Sounds, Soft, No Tenderness Extremities: No Clubbing, Other (TRACE EDEMA) Skin: No Rashes, No Breakdown Neuro: Normal Speech, Cranial Nerves 3-12 NL Psych/Mental Status: Mental Status NL, Mood NL Results Lab Laboratory Tests 12/14/18 05:39: Sodium Level 122*L, Potassium Level 4.3, Chloride Level 96L, Carbon Dioxide Level 18L, Anion Gap 8, Blood Urea Nitrogen 15, Creatinine 0.65, Estimat Glomer ular Filtration Rate > 60, BUN/Creatinine Ratio 23, Glucose Level 108H, Calcium Level 7.5L, Magnesium Level 1.9 Assessment/Plan Assessment/Plan Assess & Plan/Chief Complaint HYPONATREMIA ATRIAL FIBRILLATION HYPERTENSION HYPOTHYROIDISM CHRONIC ANXIETY HYPERLIPIDEMIA ESOPHAGEAL REFLUX HYPONATREMIA - REPLACE WITH IV FLUIDS - MONITOR SYMPTOMS - CHECK LABS. - WORSE TODAY- CHECK LABS TOMORROW - STARTED ON SODIUM CHLORIDE TAB YESTERDAY - WITH A FURTHER DROP IN HER SODIUM, WILL DO FLUID RESTRICTION, INCREASE SODIUM TAB TO BID, AND CHECK URINE ELECTROLYTES, MONITOR LAB IN MORNING - ENCOURAGE GATORADE/POWERADE. ATRIAL FIBRILLATION -UNCONTROLLED - WITH AN ACUTE EPISODE THIS MORNING, SHE RECEIVED IV METOPROLOL, AND THEN WAS TRANSFERRED UP TO ICU STEPDOWN UNIT FOR CLOSE MONITORING DR. HALL ADJUSTS HER MEDICATIONS. - DEFER TO DR. HALL - CONTINUE WITH BLOOD THINNERS HYPERTENSION - RESUME HOME REGIMEN HYPOTHYROIDISM - CHECKED THYROID LABS - THEY ARE NORMAL CHRONIC ANXIETY - SUPPORTIVE CARE HYPERLIPIDEMIA - HOLD STATIN AT THIS TIME ESOPHAGEAL REFLUX - HOLD PPI THERAPY FOR NOW STARTED PHYSICAL THERAPY DUE TO HER WEAKNESS. - SHE WILL BE TRANSFERRED FROM ICU DOWN TO INPT REHAB TOMORROW LONG SHE IS DOING WELL. SHE HAD A CHOKING EPISODE YESTERDAY - WILL CHECK CXR, CONTINUE WITH INCENTIVE SPIROMETRY DEPRESSION -AND ANXIETY - RESTARTED SSRI, CONTINUE WITH PRN XANAX Clinical Quality Measures Admission Status Admission Dx HYPONATREMIA ATRIAL FIBRILLATION HYPERTENSION HYPOTHYROIDISM CHRONIC ANXIETY HYPERLIPIDEMIA ESOPHAGEAL REFLUX DVT/VTE Risk/Contraindication: Risk Factor Score Per Nursin RFS Level Per Nursing on Admit: 2=Moderate JUNIOR SELLERS MD Dec 14, 2018 12:46
[2018-12-14] MEDS ORDERED: PIPERACILLIN/TAZOBACTAM (BULK) 4.5 GM in NS (IVPB) 100 ML IV NR (20:00)
[2018-12-14] MEDS: DOCUSATE SODIUM 100 MG (COLACE) CAP PO SCH (20:43)
[2018-12-14] MEDS: PANTOPRAZOLE 40 MG (PROTONIX) TAB PO SCH (20:43)
[2018-12-14] MEDS: ALPRAZolam 0.25 MG (XANAX) TAB PO SCH (20:43)
[2018-12-14] MEDS: POLYETHYLENE GLYCOL 17 GM (MIRALAX) PACK PO SCH (20:44)
--- NOTE | 2018-12-14 22:30 | NUR ---
PT C/O BEING SOA, O2 INCREASED TO 5 LITERS AND PRN XANAX GIVEN FOR ANXIETY. EICU CALLED FOR MAT PROTOCOL ORDER. PT HAS AUDIBLE WHEEZES BILAT.
[2018-12-14] MEDS ORDERED: RT-ALBUTEROL/IPRATROPIUM 3 ML (DUONEB) VIAL ONE (22:56)
--- NOTE | 2018-12-14 23:26 | NUR ---
PT NOW ON VAPOTHERM 30L AND 60%, BREATHING TREATMENT GIVEN PER RT
[2018-12-15] VITALS (24 sets, daily range): BP systolic 85–153; BP diastolic 50–108
[2018-12-15] MEDS ORDERED: FUROSEMIDE 40 MG/4 ML INJ (LASIX) ONE (00:46)
--- NOTE | 2018-12-15 01:00 | NUR ---
pt still soa with any movement, eicu notified, orders received. iv fluids dc'd, lasix 40 given iv and damico catheter inserted
--- NOTE | 2018-12-15 01:23 | NUR ---
asked pt if she wanted me to call her daughter and she said no and to wait until morning to call her
[2018-12-15] MEDS: PIPERACILLIN/TAZOBACTAM (BULK) 4.5 GM in NS (IVPB) 100 ML IV SCH ×3 (02:11→17:52)
[2018-12-15] MEDS: RT-ALBUTEROL/IPRATROPIUM 3 ML (DUONEB) VIAL INH SCH ×6 (02:35→22:17)
[2018-12-15] MEDS ORDERED: FUROSEMIDE 40 MG/4 ML INJ (LASIX) IV ONE (04:15)
[2018-12-15 04:39] LABS: BUN/CREATININE RATIO 21; CALCIUM 7.5 MG/DL (8.5-10.1); CARBON DIOXIDE 16 MMOL/L (21-32); CHLORIDE 96 MMOL/L (98-107); CREATININE SERUM 0.77 MG/DL (0.60-1.30); GFR ESTIMATED > 60; GLUCOSE 223 MG/DL (70-105); MAGNESIUM 1.6 MG/DL (1.8-2.4)
[2018-12-15 04:40] LABS: SODIUM 123 MMOL/L (135-145)
[2018-12-15] MEDS: LEVOTHYROXINE 75 MCG (LEVOTHROID) TABLET PO SCH (06:10)
--- NOTE | 2018-12-15 08:13 | Cardiology Progress Note ---
Subjective Date Seen by Provider: Dec 15, 2018 Time Seen by Provider: 08:11 Subjective/Events-last exam patient is having some increasing shortness of breath. Had rapid heart rate overnight. No chest pain Review of Systems General: No Chills, No Night Sweats, No Fatigue, No Malaise, No Appetite, No Other HEENT: No Head Aches, No Visual Changes, No Eye Pain, No Ear Pain, No Dysphasia, No Sinus Congestion, No Post Nasal Drip, No Sore Throat, No Other Pulmonary: Dyspnea; No Cough, No Pleuritic Chest Pain, No Other Cardiovascular: No: Chest Pain, Palpitations, Orthopnea, Paroxysmal Noc. Dyspnea, Edema, Lt Headedness, Other Objective-Cardiology Exam Last Set of Vital Signs Vital Signs 12/15/18 12/16/18 10:16 09:00 Pulse 119 Resp 29 B/P (MAP) 124/74 (91) Pulse Ox 91 O2 Delivery Nasal Cannula O2 Flow Rate 0.50 FiO2 30 Capillary Refill : I&O Intake and Output 12/16/18 00:00 Intake Total 2120 ml Output Total 2600 ml Balance -480 ml Intake Oral 1100 ml IV Total 1020 ml Output Urine Total 2600 ml General: Alert, Oriented X3, Cooperative, No Acute Distress HEENT: Atraumatic, Other (RIGHT EYE CLOUDY, LEFT EYE CLEAR - PUPIL ROUND AND REACTIVE) Neck: Supple Lungs: Normal Air Movement, Other (bilateral rhonchi) Heart: Normal S1, Normal S2, Other (irreularly irregular, slightly tachycardic) Abdomen: Normal Bowel Sounds, Soft, No Tenderness Extremities: No Clubbing, Other (TRACE EDEMA) Skin: No Rashes, No Breakdown Neuro: Normal Speech, Cranial Nerves 3-12 NL Psych/Mental Status: Mental Status NL, Mood NL Results Lab Laboratory Tests 12/16/18 07:27 A/P-Cardiology Admission Diagnosis Hyponatremia Chronic atrial fibrillation CAD HTN HLP Assessment/Plan Hyponatremia, persistent, managed by primary care team. Shortness of breath, worsening today with pulmonary edema secondary to fluid overload. Questionable pulmonary infiltrate, started on antibiotic, I'll give one dose of Lasix and evaluate response. Generalized weakness/debility- PT/OT Persistent atrial fibrillation, maintained on Eliquis, continue to monitor heart rate and blood pressure. Echocardiogram done 12/11/18 revealed EF 55-65% Left atrial dilatation 4.2cm, MVP with mod MR, mod-sev TR PA 50-55mmHg, borderline tachycardic, continue with Toprol 100 mg daily and continue on digoxin and monitor tolerance and response Pulmonary hypertension-most recent PA pressure done 50-55mmHg. managed by Dr. Singh Patient had a SPECT perfusion study done in July 2015 at [facility] cardiology reported to have normal left ventricular function with ejection fraction 56 percent and normal LV perfusion. 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 Continue to monitor [id number] score is 4, yearly risk of stroke without oral anticoagulation is 4 percent. She is maintained on Eliquis, continue to monitor Hypertension, continue to monitor blood pressure Hyperlipidemia, controlled. Continue to monitor as outpatient. 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 Continue to monitor. Nonobstructive carotid artery stenosis-most recent carotid duplex done September 2017, continue to monitor. Hypothyroidism- management per Dr. Josef Roberto GERD Clinical Quality Measures DVT/VTE Risk/Contraindication: Risk Factor Score Per Nursin RFS Level Per Nursing on Admit: 2=Moderate MICHAEL HALL MD Dec 15, 2018 08:13
--- NOTE | 2018-12-15 08:50 | Diagnostic Imaging Report ---
INDICATION: Pneumonia. Comparison is made with prior examination from 12/14/2018. FINDINGS: Heart size is stable. There are persistent bilateral pulmonary infiltrates, right greater than left. Small bilateral pleural effusions. There is no pneumothorax. Mediastinum unremarkable. IMPRESSION: Persistent bilateral pulmonary infiltrates, right greater than left, with small bilateral pleural effusions. Some underlying central pulmonary venous congestion cannot be excluded. Dictated by: Dictated on workstation # [id number]
[2018-12-15] MEDS: Brinzolamide/Brimonidine Tart (Simbrinza) 1%-0.2% Eye Drops OS SCH ×2 (09:21→21:00)
[2018-12-15] MEDS: SIMETHICONE 80 MG (MYLICON) CHEW PO SCH ×4 (09:21→21:00)
[2018-12-15] MEDS: amLODIPine 5 MG (NORVASC) TAB PO SCH (09:22)
[2018-12-15] MEDS: LACTOBACILLUS ACIDOPHILUS (PROBIOTIC) CAPSULE PO SCH (09:22)
[2018-12-15] MEDS: APIXABAN 2.5 MG (ELIQUIS) TABLET PO SCH ×2 (09:22→21:00)
[2018-12-15] MEDS: meTOprolol SUCCINATE 100 MG (TOPROL XL) TAB PO SCH (09:22)
[2018-12-15] MEDS: SODIUM CHLORIDE 1 GM TAB (NON-FORMULARY) PO SCH ×2 (09:22→21:00)
[2018-12-15] MEDS: ARTIFICAL TEARS 0.4 ML UNIT DOSE (REFRESH PLUS) OU SCH ×4 (09:22→21:00)
[2018-12-15] MEDS: NYSTATIN ORAL SUSP 5 ML UDC PO SCH ×4 (09:22→21:00)
--- NOTE | 2018-12-15 12:18 | Progress Note-Hospitalist ---
Subjective HPI/CC On Admission Date Seen by Provider: Dec 15, 2018 Time Seen by Provider: 11:00 Subjective/Events-last exam Family essentially demanding an appetite stimulant but considering the hyponatremia in the continued lack of control of the atrial fibrillation rate I will need to confer with Dr. Rock and defer it to Dr. Bahena Updated the family on this fact Patient denies any pain Sodium level continues to be low at 123 Not stable enough for inpatient rehabilitation and considering her frail status may ultimately need nursing facility prior to inpatient rehabilitation Patient reports a little short of breath at times Review of Systems General: Fatigue Pulmonary: Dyspnea Objective Exam Vital Signs Vital Signs Date Time Temp Pulse Resp B/P (MAP) Pulse Ox O2 Delivery O2 Flow Rate FiO2 12/15/18 13:05 89 32 112/53 (72) 99 Vapotherm 30.00 20.00 12/15/18 10:16 30 12/15/18 08:08 97.2 Capillary Refill : General Appearance: No Apparent Distress, WD/WN, Chronically ill, Mild Distress, Thin HEENT: Pharynx Normal Neck: Full Range of Motion, Normal Inspection, Non Tender, Supple Respiratory: Chest Non Tender, Lungs Clear, Normal Breath Sounds, No Accessory Muscle Use, No Respiratory Distress Cardiovascular: No Gallop, No Murmur, Irregularly Irregular, Tachycardia Gastrointestinal: Normal Bowel Sounds, No Organomegaly, No Pulsatile Mass, Non Tender, Soft Rectal: Deferred Extremity: Normal Capillary Refill, No Pedal Edema Neurologic/Psychiatric: Alert, Oriented x3, No Motor/Sensory Deficits, Normal Mood/Affect Skin: Warm/Dry Lymphatic: No Adenopathy Results/Procedures Lab Laboratory Tests 12/15/18 04:13 Patient resulted labs reviewed. Assessment/Plan Assessment and Plan Assess & Plan/Chief Complaint Assessment: Atrial fibrillation with rapid ventricular response Severe hyponatremia refractory Generalized weakness Advanced age Poor appetite Plan: Sodium tablets Fluid restriction Diuresis Atrial fib control per cardiology Defer appetite stimulant to PCP and cardiology and family is displeased that something cannot be started immediately but given the severe hyponatremia and continued atrial fibrillation rate that is still not in control will need to hold off for now for patient safety Diagnosis/Problems Diagnosis/Problems (1) Hyponatremia Status: Acute (2) Atrial fibrillation Status: Acute Qualifiers: Atrial fibrillation type: persistent Qualified Codes: I48.1 - Persistent atrial fibrillation (3) Dyspnea Status: Acute Qualifiers: Dyspnea type: dyspnea on exertion Qualified Codes: R06.09 - Other forms of dyspnea Clinical Quality Measures DVT/VTE Risk/Contraindication: Risk Factor Score Per Nursin RFS Level Per Nursing on Admit: 2=Moderate TIKA MILLS DO Dec 15, 2018 12:17
[2018-12-15] MEDS: POLYETHYLENE GLYCOL 17 GM (MIRALAX) PACK PO SCH (21:00)
[2018-12-15] MEDS: DOCUSATE SODIUM 100 MG (COLACE) CAP PO SCH (21:00)
[2018-12-15] MEDS: PANTOPRAZOLE 40 MG (PROTONIX) TAB PO SCH (21:00)
[2018-12-15] MEDS: ALPRAZolam 0.25 MG (XANAX) TAB PO SCH (21:00)
[2018-12-16] VITALS (14 sets, daily range): BP systolic 94–142; BP diastolic 58–90
[2018-12-16] MEDS: PIPERACILLIN/TAZOBACTAM (BULK) 4.5 GM in NS (IVPB) 100 ML IV SCH ×3 (02:00→18:21)
[2018-12-16] MEDS: RT-ALBUTEROL/IPRATROPIUM 3 ML (DUONEB) VIAL INH SCH ×6 (03:22→22:04)
[2018-12-16] MEDS: DIGOXIN 0.125 MG (LANOXIN) TAB PO SCH (03:32)
[2018-12-16] MEDS: LEVOTHYROXINE 75 MCG (LEVOTHROID) TABLET PO SCH (06:11)
[2018-12-16] MEDS: SIMETHICONE 80 MG (MYLICON) CHEW PO SCH ×4 (07:26→21:03)
[2018-12-16 07:32] LABS: BASOPHILS # (AUTO) 0.1 10^3/uL (0.0-0.1); BASOPHILS % (AUTO) 0 % (0-10); EOSINOPHILS # (AUTO) 0.7 10^3/uL (0.0-0.3); EOSINOPHILS % (AUTO) 4 % (0-10); HEMATOCRIT 33 % (35-52); HEMOGLOBIN 11.6 G/DL (11.5-16.0); LYMPHOCYTES # (AUTO) 0.9 X 10^3 (1.0-4.0); LYMPHOCYTES % (AUTO) 6 % (12-44); MEAN CORPUSCULAR HEMOGLOBIN 31 PG (25-34); MEAN CORPUSCULAR HGB CONC 35 G/DL (32-36); MEAN CORPUSCULAR VOLUME 88 FL (80-99); MEAN PLATELET VOLUME 9.8 FL (7.4-10.4); MONOCYTES # (AUTO) 1.1 X 10^3 (0.0-1.0); MONOCYTES % (AUTO) 7 % (0-12); NEUTROPHILS # (AUTO) 12.4 X 10^3 (1.8-7.8); NEUTROPHILS % (AUTO) 82 % (42-75); PLATELET COUNT 314 10^3/uL (130-400); RED CELL DISTRIBUTION WIDTH 13.1 % (10.0-14.5); WHITE BLOOD COUNT 15.1 10^3/uL (4.3-11.0)
[2018-12-16 07:54] LABS: ALANINE AMINOTRANSFERASE 48 U/L (0-55); ALBUMIN 2.5 GM/DL (3.2-4.5); ALKALINE PHOSPHATASE 63 U/L (40-136); BILIRUBIN,TOTAL 0.6 MG/DL (0.1-1.0); BUN/CREATININE RATIO 21; CARBON DIOXIDE 18 MMOL/L (21-32); CHLORIDE 100 MMOL/L (98-107); CREATININE SERUM 0.76 MG/DL (0.60-1.30); GFR ESTIMATED > 60; GLUCOSE 113 MG/DL (70-105); SODIUM 128 MMOL/L (135-145); TOTAL PROTEIN 5.6 GM/DL (6.4-8.2)
[2018-12-16 08:17] LABS: BAND NEUTROPHILS 0 %; BASOPHILS % (MANUAL) 0 %; EOSINOPHILS % (MANUAL) 1 %; LYMPHOCYTES % (MANUAL) 8 %; MONOCYTES % (MANUAL) 7 %; NEUTROPHILS % (MANUAL) 84 %; RBC MORPH NORMAL
[2018-12-16] MEDS: amLODIPine 5 MG (NORVASC) TAB PO SCH (08:24)
[2018-12-16] MEDS: LACTOBACILLUS ACIDOPHILUS (PROBIOTIC) CAPSULE PO SCH (08:24)
[2018-12-16] MEDS: APIXABAN 2.5 MG (ELIQUIS) TABLET PO SCH ×2 (08:24→21:02)
[2018-12-16] MEDS: meTOprolol SUCCINATE 100 MG (TOPROL XL) TAB PO SCH (08:24)
[2018-12-16] MEDS: NYSTATIN ORAL SUSP 5 ML UDC PO SCH ×4 (08:24→21:03)
[2018-12-16] MEDS: Brinzolamide/Brimonidine Tart (Simbrinza) 1%-0.2% Eye Drops OS SCH ×2 (08:25→21:00)
[2018-12-16] MEDS: SODIUM CHLORIDE 1 GM TAB (NON-FORMULARY) PO SCH ×2 (08:32→21:03)
[2018-12-16] MEDS: ARTIFICAL TEARS 0.4 ML UNIT DOSE (REFRESH PLUS) OU SCH ×4 (08:34→21:01)
--- NOTE | 2018-12-16 09:38 | Cardiology Progress Note ---
Subjective Date Seen by Provider: Dec 16, 2018 Time Seen by Provider: 09:36 Subjective/Events-last exam patient is laying down in bed, feeling better, still having some shortness of breath. Noted to be tachycardic. Review of Systems General: No Chills, No Night Sweats; Fatigue, Malaise; No Appetite, No Other HEENT: No Head Aches, No Visual Changes, No Eye Pain, No Ear Pain, No Dysphasia, No Sinus Congestion, No Post Nasal Drip, No Sore Throat, No Other Pulmonary: Dyspnea; No Cough, No Pleuritic Chest Pain, No Other Cardiovascular: No: Chest Pain, Palpitations, Orthopnea, Paroxysmal Noc. Dyspnea, Edema, Lt Headedness, Other Objective-Cardiology Exam Last Set of Vital Signs Vital Signs 12/15/18 12/16/18 10:16 09:00 Pulse 119 Resp 29 B/P (MAP) 124/74 (91) Pulse Ox 91 O2 Delivery Nasal Cannula O2 Flow Rate 0.50 FiO2 30 Capillary Refill : I&O Intake and Output 12/16/18 00:00 Intake Total 2120 ml Output Total 2600 ml Balance -480 ml Intake Oral 1100 ml IV Total 1020 ml Output Urine Total 2600 ml General: Alert, Oriented X3, Cooperative, No Acute Distress HEENT: Atraumatic, Other (RIGHT EYE CLOUDY, LEFT EYE CLEAR - PUPIL ROUND AND REACTIVE) Neck: Supple Lungs: Normal Air Movement, Other (bilateral rhonchi) Heart: Normal S1, Normal S2, Other (irreularly irregular, slightly tachycardic) Abdomen: Normal Bowel Sounds, Soft, No Tenderness Extremities: No Clubbing, Other (TRACE EDEMA) Skin: No Rashes, No Breakdown Neuro: Normal Speech, Cranial Nerves 3-12 NL Psych/Mental Status: Mental Status NL, Mood NL Results Lab Laboratory Tests 12/16/18 07:27 A/P-Cardiology Admission Diagnosis Hyponatremia Chronic atrial fibrillation CAD HTN HLP Assessment/Plan Hyponatremia, chronic, better today. Continue to monitor Shortness of breath, reporting improvement, started on antibiotic and Lasix. Continue to monitor Generalized weakness/debility- PT/OT Persistent atrial fibrillation, maintained on Eliquis, still tachycardic, maintained on metoprolol XL 100 mg daily. Has history of bradycardia in the past. I will change amlodipine to Cardizem 30 mg every 6 hours with close monitoring to her heart rate. 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 managed by Dr. Singh Patient had a SPECT perfusion study done in July 2015 at [facility] cardiology reported to have normal left ventricular function with ejection fraction 56 percent and normal LV perfusion. 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 Continue to monitor [id number] score is 4, yearly risk of stroke without oral anticoagulation is 4 percent. 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 Continue to monitor. Nonobstructive carotid artery stenosis-most recent carotid duplex done September 2017, continue to monitor. Hypothyroidism- management per Dr. Bahena Anxiety, depression, managed by primary care physician GERMAN Clinical Quality Measures DVT/VTE Risk/Contraindication: Risk Factor Score Per Nursin RFS Level Per Nursing on Admit: 2=Moderate MICHAEL HALL MD Dec 16, 2018 09:38
--- NOTE | 2018-12-16 10:48 | Progress Note-Hospitalist ---
Subjective HPI/CC On Admission Date Seen by Provider: Dec 16, 2018 Time Seen by Provider: 10:30 Subjective/Events-last exam Patient doing a little better but still adjusting cardiac meds for the atrial fibrillation with rapid ventricular response Sodium level is much improved at 128 Appetite stimulant was not approved by Dr. Rock due to the possibility of that increasing the heart rate of the atrial fibrillation Daughter at the bedside and I updated her on who I was in details regarding awaiting for stability prior to going to inpatient rehab Patient appears to be very declined and fragile unsure if inpatient rehab will be tolerated since 3 hours of physical therapy will be required Daughter usually stands by the door and does not allow anyone in but I am unclear if that will be a possibility in inpatient rehab since there are so many therapies in a multidisciplinary approach multiple contacts are required all day long Patient denies any significant pain Review of Systems General: Fatigue Pulmonary: Dyspnea Objective Exam Vital Signs Vital Signs Date Time Temp Pulse Resp B/P (MAP) Pulse Ox O2 Delivery O2 Flow Rate FiO2 12/16/18 16:00 96.8 12/16/18 13:00 100 12/16/18 12:00 24 99/63 (75) 94 Nasal Cannula 0.50 12/15/18 10:16 30 Capillary Refill : General Appearance: No Apparent Distress, WD/WN, Chronically ill, Mild Distress, Thin, Other (fragile) HEENT: Pharynx Normal Neck: Full Range of Motion, Normal Inspection, Non Tender, Supple Respiratory: Chest Non Tender, Lungs Clear, Normal Breath Sounds, No Accessory Muscle Use, No Respiratory Distress Cardiovascular: No Gallop, No Murmur, Irregularly Irregular, Tachycardia Gastrointestinal: Normal Bowel Sounds, No Organomegaly, No Pulsatile Mass, Non Tender, Soft Rectal: Deferred Extremity: Normal Capillary Refill, No Pedal Edema Neurologic/Psychiatric: Alert, Oriented x3, No Motor/Sensory Deficits, Normal Mood/Affect Skin: Warm/Dry Lymphatic: No Adenopathy Results/Procedures Lab Laboratory Tests 12/16/18 07:27 Patient resulted labs reviewed. Assessment/Plan Assessment and Plan Assess & Plan/Chief Complaint Assessment: Atrial fibrillation with rapid ventricular response Severe hyponatremia refractory Generalized weakness Advanced age Poor appetite Plan: Sodium tablets Fluid restriction Diuresis Atrial fib control per cardiology Monitor closely Diagnosis/Problems Diagnosis/Problems (1) Hyponatremia Status: Acute (2) Atrial fibrillation Status: Acute Qualifiers: Atrial fibrillation type: persistent Qualified Codes: I48.1 - Persistent atrial fibrillation (3) Dyspnea Status: Acute Qualifiers: Dyspnea type: dyspnea on exertion Qualified Codes: R06.09 - Other forms of dyspnea Clinical Quality Measures DVT/VTE Risk/Contraindication: Risk Factor Score Per Nursin RFS Level Per Nursing on Admit: 2=Moderate TIKA MILLS DO Dec 16, 2018 10:48
[2018-12-16] MEDS: DILTIAZEM 30 MG (CARDIZEM) TAB PO SCH ×3 (12:21→23:34)
[2018-12-16] MEDS: ALPRAZolam 0.25 MG (XANAX) TAB PO PRN ×2 (12:52→23:47)
--- NOTE | 2018-12-16 20:36 | NUR ---
Family had questions regarding Sodium Chloride that is due at 2100. This RN called Dr. Rock to verify order, 1 GM Sodium Chloride due at [address] Rock.
[2018-12-16] MEDS: PANTOPRAZOLE 40 MG (PROTONIX) TAB PO SCH (21:02)
[2018-12-16] MEDS: POLYETHYLENE GLYCOL 17 GM (MIRALAX) PACK PO SCH (21:02)
[2018-12-16] MEDS: DOCUSATE SODIUM 100 MG (COLACE) CAP PO SCH (21:02)
[2018-12-16] MEDS: ALPRAZolam 0.25 MG (XANAX) TAB PO SCH (21:02)
--- NOTE | 2018-12-16 23:51 | NUR ---
Pt c/o SOA, RT called and VAPOTHERM applied 15L 25%. Will continue to monitor.
[2018-12-17] VITALS (8 sets, daily range): BP systolic 106–130; BP diastolic 54–95
[2018-12-17] MEDS: RT-ALBUTEROL/IPRATROPIUM 3 ML (DUONEB) VIAL INH SCH ×6 (02:04→22:50)
[2018-12-17] MEDS: PIPERACILLIN/TAZOBACTAM (BULK) 4.5 GM in NS (IVPB) 100 ML IV SCH ×3 (02:17→18:05)
[2018-12-17 03:43] LABS: HEMOGLOBIN 11.3 G/DL (11.5-16.0); MEAN PLATELET VOLUME 9.6 FL (7.4-10.4); RED CELL DISTRIBUTION WIDTH 13.7 % (10.0-14.5); WHITE BLOOD COUNT 15.4 10^3/uL (4.3-11.0)
[2018-12-17 04:04] LABS: ALANINE AMINOTRANSFERASE 53 U/L (0-55); ALBUMIN 2.6 GM/DL (3.2-4.5); ALKALINE PHOSPHATASE 72 U/L (40-136); BUN/CREATININE RATIO 24; CALCIUM 8.4 MG/DL (8.5-10.1); CARBON DIOXIDE 17 MMOL/L (21-32); CHLORIDE 98 MMOL/L (98-107); CHOLESTEROL 107 MG/DL (< 200); CREATININE SERUM 0.78 MG/DL (0.60-1.30); GFR ESTIMATED > 60; GLUCOSE 122 MG/DL (70-105); HDL CHOLESTEROL 33 MG/DL (40-60); MAGNESIUM 1.7 MG/DL (1.8-2.4); POTASSIUM 4.2 MMOL/L (3.6-5.0); SODIUM 126 MMOL/L (135-145); TOTAL PROTEIN 5.7 GM/DL (6.4-8.2); TRIGLYCERIDES 66 MG/DL (<150); VLDL CHOLESTEROL 13 MG/DL (5-40)
[2018-12-17 05:05] LABS: BILIRUBIN,TOTAL 0.5 MG/DL (0.1-1.0)
[2018-12-17] MEDS: LEVOTHYROXINE 75 MCG (LEVOTHROID) TABLET PO SCH (06:34)
[2018-12-17] MEDS: DILTIAZEM 30 MG (CARDIZEM) TAB PO SCH ×3 (06:34→18:11)
[2018-12-17] MEDS ORDERED: RT-ALBUTEROL/IPRATROPIUM 3 ML (DUONEB) VIAL INH PRN (07:45)
--- NOTE | 2018-12-17 08:11 | Cardiology Progress Note ---
Subjective Date Seen by Provider: Dec 17, 2018 Time Seen by Provider: 08:09 Subjective/Events-last exam patient is laying down in bed, having some shortness of breath. Denied any chest pain. Review of Systems General: No Chills, No Night Sweats; Fatigue, Malaise; No Appetite, No Other HEENT: No Head Aches, No Visual Changes, No Eye Pain, No Ear Pain, No Dysphasia, No Sinus Congestion, No Post Nasal Drip, No Sore Throat, No Other Pulmonary: Dyspnea; No Cough, No Pleuritic Chest Pain, No Other Cardiovascular: No: Chest Pain, Palpitations, Orthopnea, Paroxysmal Noc. Dyspnea, Edema, Lt Headedness, Other Objective-Cardiology Exam Last Set of Vital Signs Vital Signs 12/17/18 12/17/18 04:00 07:32 Temp 98.2 Pulse 85 B/P (MAP) 106/54 (71) Pulse Ox 93 O2 Delivery Vapotherm O2 Flow Rate 15.00 FiO2 35 Capillary Refill : I&O Intake and Output 12/17/18 00:00 Intake Total 580 ml Output Total 725 ml Balance -145 ml Intake Oral 460 ml IV Total 120 ml Output Urine Total 725 ml General: Alert, Oriented X3, Cooperative, No Acute Distress HEENT: Atraumatic, Other (RIGHT EYE CLOUDY, LEFT EYE CLEAR - PUPIL ROUND AND REACTIVE) Neck: Supple Lungs: Normal Air Movement, Other (bilateral rhonchi) Heart: Normal S1, Normal S2, Other (irreularly irregular) Abdomen: Normal Bowel Sounds, Soft, No Tenderness Extremities: No Clubbing, Other (TRACE EDEMA) Skin: No Rashes, No Breakdown Neuro: Normal Speech, Cranial Nerves 3-12 NL Psych/Mental Status: Mental Status NL, Mood NL Results Lab Laboratory Tests 12/17/18 03:30 A/P-Cardiology Admission Diagnosis Hyponatremia Chronic atrial fibrillation CAD HTN HLP Assessment/Plan Hyponatremia, chronic, continue to monitor Shortness of breath, slightly worse, chest x-ray showing bilateral infiltrate, receiving antibiotic and Lasix, I will consult Dr. Singh Generalized weakness/debility- PT/OT Persistent atrial fibrillation, heart rate is better controlled, we'll continue to monitor closely due to the history of tachybradycardia episode. 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 managed by Dr. Singh Patient had a SPECT perfusion study done in July 2015 at [facility] cardiology reported to have normal left ventricular function with ejection fraction 56 percent and normal LV perfusion. 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 Continue to monitor [id number] score is 4, yearly risk of stroke without oral anticoagulation is 4 percent. 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 Continue to monitor. Nonobstructive carotid artery stenosis-most recent carotid duplex done September 2017, continue to monitor. Hypothyroidism- management per Dr. Bahena Anxiety, depression, managed by primary care physician GERMAN Clinical Quality Measures DVT/VTE Risk/Contraindication: Risk Factor Score Per Nursin RFS Level Per Nursing on Admit: 2=Moderate MICHAEL HALL MD Dec 17, 2018 08:10
--- NOTE | 2018-12-17 08:22 | Progress Note ---
Subjective Date Seen by a Provider: Dec 17, 2018 Time Seen by a Provider: 08:10 Subjective/Events-last exam PER STAFF REPORT SHE HAD TO BE PUT ON VAPOTHERM LATE LAST NIGHT/EARLY THIS MORNING. THEY REPORT THAT SHE ALSO HAD TO HAVE HER CARDIAC MEDICATIONS ADJUSTED DUE TO HER ATRIAL FIBRILLATION. Review of Systems General: Fatigue, Other (PT DID NOT SLEEP WELL FOR THE PAST TWO NIGHTS.) Pulmonary: Dyspnea; No Cough Cardiovascular: Palpitations, Edema (TRACE); No: Chest Pain Gastrointestinal: No: Nausea, Abdominal Pain Genitourinary: No Dysuria Neurological: Weakness; No: Confusion Objective Exam Last Set of Vital Signs Vital Signs Date Time Temp Pulse Resp B/P (MAP) Pulse Ox O2 Delivery O2 Flow Rate FiO2 12/17/18 07:32 93 Vapotherm 15.00 35 12/17/18 07:32 85 12/17/18 04:48 22 12/17/18 04:00 98.2 Capillary Refill : I&O Intake and Output 12/17/18 00:00 Intake Total 580 ml Output Total 725 ml Balance -145 ml Intake Oral 460 ml IV Total 120 ml Output Urine Total 725 ml General: Alert, Oriented X3, Cooperative HEENT: Atraumatic, Other (RIGHT EYE CLOUDY, LEFT EYE CLEAR - PUPIL ROUND AND REACTIVE) Neck: Supple Lungs: Other (DECREASED AIR MOVEMENT THROUGHOUT, FAINT CRACKLES IN UPPER CHEST ON RIGHT) Heart: Normal S1, Normal S2, Other (irreularly irregular) Abdomen: Normal Bowel Sounds, Soft, No Tenderness Extremities: No Clubbing, Other (TRACE EDEMA) Skin: No Rashes, No Breakdown Neuro: Normal Speech, Cranial Nerves 3-12 NL Psych/Mental Status: Mental Status NL, Mood NL Results Lab Laboratory Tests 12/17/18 03:30: White Blood Count 15.4H, Red Blood Count 3.73L, Hemoglobin 11.3L, Hematocrit 33L , Mean Corpuscular Volume 88, Mean Corpuscular Hemoglobin 30, Mean Corpuscular Hemoglobin Concent 34, Red Cell Distribution Width 13.7, Platelet Count 364, Mean Platelet Volume 9.6, Sodium Level 126L, Potassium Level 4.2, Chloride Level 98, Carbon Dioxide Level 17L, Anion Gap 11, Blood Urea Nitrogen 19H, Creatinine 0.78, Estimat Glomerular Filtration Rate > 60, BUN/Creatinine Ratio 24, Glucose Level 122H, Calcium Level 8.4L, Corrected Calcium 9.5, Magnesium Level 1.7L, Total Bilirubin 0.5, Aspartate Amino Transf (AST/SGOT) 29, Alanine Aminotransferase (ALT/SGPT) 53, Alkaline Phosphatase 72, Total Protein 5.7L, Albumin 2.6L, Triglycerides Level 66, Cholesterol Level 107, LDL Cholesterol Direct 68, VLDL Cholesterol 13, HDL Cholesterol 33L Assessment/Plan Assessment/Plan Assess & Plan/Chief Complaint HYPONATREMIA ATRIAL FIBRILLATION HYPERTENSION HYPOTHYROIDISM CHRONIC ANXIETY HYPERLIPIDEMIA ESOPHAGEAL REFLUX HYPONATREMIA -INITIALLY REPLACED WITH IV FLUIDS, THEN SHE WAS STARTED ON SODIUM CHLORIDE TAB HOWEVER DR. HALL HAS HAD THE SODIUM TAB HELD DUE TO EDEMA. - MONITOR SODIUM LEVEL IN MORNING. ATRIAL FIBRILLATION -UNCONTROLLED - WITH AN ACUTE EPISODE THIS MORNING, SHE RECEIVED IV METOPROLOL, AND THEN WAS TRANSFERRED UP TO ICU STEPDOWN UNIT FOR CLOSE MONITORING DR. HALL ADJUSTS HER MEDICATIONS. - DEFER TO DR. HALL - CONTINUE WITH BLOOD THINNERS HYPERTENSION - RESUMED HOME REGIMEN HYPOTHYROIDISM - CHECKED THYROID LABS - THEY ARE NORMAL CHRONIC ANXIETY - SUPPORTIVE CARE HYPERLIPIDEMIA - HOLD STATIN AT THIS TIME ESOPHAGEAL REFLUX - HOLD PPI THERAPY FOR NOW STARTED PHYSICAL THERAPY DUE TO HER WEAKNESS. - SHE IS UNABLE TO BE TRANSFERRED TO INPT REHAB DUE TO HER WEAKNESS, AT T HIS POINT, I AM NOT SURE SHE WILL BE ABLE TO GO DOWN TO IRF, WE MAY NEED TO CONSIDER A SKILLED NURSING FOR SHORT TERM REHAB. DEPRESSION -AND ANXIETY - RESTARTED SSRI, INSOMNIA - UNCONTROLLED - STOP XANAX, START ON ATIVAN. Clinical Quality Measures Admission Status Admission Dx HYPONATREMIA ATRIAL FIBRILLATION HYPERTENSION HYPOTHYROIDISM CHRONIC ANXIETY HYPERLIPIDEMIA ESOPHAGEAL REFLUX DVT/VTE Risk/Contraindication: Risk Factor Score Per Nursin RFS Level Per Nursing on Admit: 2=Moderate JUNIOR SELLERS MD Dec 17, 2018 08:22
[2018-12-17] MEDS: ARTIFICAL TEARS 0.4 ML UNIT DOSE (REFRESH PLUS) OU SCH ×4 (08:23→21:31)
[2018-12-17] MEDS: meTOprolol SUCCINATE 100 MG (TOPROL XL) TAB PO SCH (08:23)
[2018-12-17] MEDS: APIXABAN 2.5 MG (ELIQUIS) TABLET PO SCH ×2 (08:23→21:32)
[2018-12-17] MEDS: LACTOBACILLUS ACIDOPHILUS (PROBIOTIC) CAPSULE PO SCH (08:23)
[2018-12-17] MEDS: Brinzolamide/Brimonidine Tart (Simbrinza) 1%-0.2% Eye Drops OS SCH ×2 (08:23→21:31)
[2018-12-17] MEDS: SODIUM CHLORIDE 1 GM TAB (NON-FORMULARY) PO SCH ×2 (08:24→22:00)
[2018-12-17] MEDS: NYSTATIN ORAL SUSP 5 ML UDC PO SCH ×4 (08:24→21:32)
[2018-12-17] MEDS: SIMETHICONE 80 MG (MYLICON) CHEW PO SCH ×4 (08:26→21:32)
[2018-12-17] MEDS ORDERED: MAGNESIUM 1 GM/100 ML IVPB 100 ML IV NR (08:30)
--- NOTE | 2018-12-17 08:57 | Diagnostic Imaging Report ---
INDICATION: Pneumonia shortness of air. COMPARISON: 12/15/2018. FINDINGS: There have been improvements in the bilateral mixed interstitial and airspace opacities remaining asymmetric, greater right than left. There has also been a reduction in the pleural fluid. No pneumothorax. The heart size itself appears within normal limits. IMPRESSION: 1. Interval improvements in bilateral pleural/parenchymal opacity. The lung infiltration could reflect a reduction in pneumonia and/or edema. 2. No pneumothorax and no adverse interval development. Dictated by: Dictated on workstation # [id number]
[2018-12-17] MEDS ORDERED: LORazepam 0.5 MG (ATIVAN) TABLET PO STA (09:44)
[2018-12-17] MEDS ORDERED: methylPREDNISolone 40 MG/ML (Solu-MEDROL) VIAL IV SCH (09:45)
--- NOTE | 2018-12-17 10:30 | NUR ---
Pastoral care visit.
--- NOTE | 2018-12-17 16:26 | Pulmonary Consultation ---
History of Present Illness History of Present Illness Date of Consultation 12/17/18 16:21 Time Seen by Provider: 12:38 Date of Admission Reason for Visit: Atrial fibrillation History of Present Illness 83 y/o female with history of chronic atrial fibrillation, hypertension, hypothyroidism. Admitted from Dr. Bahena's office after presenting with complaints of increased weakness, fatigue and palpitations. Noted to be hyponatremic. Complaining of nonproductive cough and increased dyspnea over the past several weeks. Denies any chest pain, peripheral edema or syncope. Continues to complain of weakness. Allergies and Home Medications Allergies Coded Allergies: Bacitracin Zinc (Verified Allergy, Unknown, 10/06/15) bacitracin (Verified Allergy, Unknown, 10/06/15) benzalkonium chloride (Verified Allergy, Unknown, 10/06/15) gramicidin D (Verified Allergy, Unknown, 10/06/15) hydrocortisone (Verified Allergy, Unknown, 10/06/15) lidocaine (Verified Allergy, Unknown, 10/06/15) meclizine (Verified Allergy, Unknown, 10/06/15) neomycin (Verified Allergy, Unknown, 10/06/15) neomycin sulfate (Verified Allergy, Unknown, 10/06/15) polymyxin B (Verified Allergy, Unknown, 10/06/15) polymyxin B sulfate (Verified Allergy, Unknown, 10/06/15) Home Medications Acetaminophen 325 Mg Tablet, 325-650 MG PO Q6H PRN for PAIN-MILD, (Reported) Albuterol Sulfate 90 Mcg Aer.pow.ba, 1-2 PUFF INH QID PRN for SHORTNESS OF BREATH, (Reported) Qelku-Y-Uykcjesfskxyy 150 Unit Tablet, 2 TAB PO AC, (Reported) Alprazolam 0.25 Mg Tablet, 0.5-1 TAB PO DAILY PRN for ANXIETY, (Reported) Amlodipine Besylate 5 Mg Tablet, 5 MG PO DAILY, (Reported) Apixaban 2.5 Mg Tablet, 2.5 MG PO BID, (Reported) Atorvastatin Calcium 10 Mg Tablet, 10 MG PO HS, (Reported) Brinzolamide/Brimonidine Tart 8 Ml Drops.susp, 1 DROP OS BID, (Reported) Budesonide/Formoterol Fumarate 10.2 Gm Hfa.aer.ad, 2 PUFF IH BID PRN for SHORTNESS OF BREATH, (Reported) Carboxymethyl/Glycerin/Poly80 10 Ml Drops, 2 DROP OU QID, (Reported) Cephalexin 500 Mg Capsule, 500 MG PO TID, (Reported) 7 DAY SUPPLY FILLED 12-07-18 Cetirizine HCl 10 Mg Tablet, 10 MG PO HS, (Reported) Cholecalciferol (Vitamin D3) 1,000 Unit Capsule, 1,000 UNIT PO 1200, (Reported) Cyclobenzaprine HCl 5 Mg Tablet, 2.5 MG PO Q8H, (Reported) TAKES 1/2 (5MG) TABLET Dextromethorphan HBr/Chlor-Mal 1 Each Tablet, 1 TAB PO TID, (Reported) Diclofenac Sodium 100 Gm Gel..gram., 2 GM TOP QID PRN for PAIN, (Reported) APPLY TO SHOULDER AND HANDS Digoxin 125 Mcg Tablet, 125 MCG PO Q48H@0300, (Reported) IF HR UNDER 60 TWO OR MORE TIMES DURING THE DAY REDUCE TO 1/2 TABLET Docusate Sodium 100 Mg Capsule, 100 MG PO HS, (Reported) Guaifenesin 1,200 Mg Tab.er.12h, 1,200 MG PO BID PRN for CONGESTION, (Reported) L.acidoph & Paracasei,B.lactis 1 Each Capsule, 1 CAP PO DAILY, (Reported) Levothyroxine Sodium 75 Mcg Tablet, 75 MCG PO 0300, (Reported) Loperamide HCl 2 Mg Tablet, 2 MG PO UD PRN for DIARRHEA, (Reported) Loteprednol Etabonate 5 Gm Drops.gel, 1 DROP OD BID, (Reported) Metoprolol Succinate 50 Mg Tab.er.24h, 75 MG PO DAILY, (Reported) TAKES 1 & 1/2 (50MG) TABLET Multivitamin 1 Each Tablet, 1 TAB PO 1200, (Reported) Steptoe 3 Polyunsat Fatty Acids 1,000 Mg Cap, 1,000 MG PO BID, (Reported) Pantoprazole Sodium 40 Mg Tablet.dr, 40 MG PO HS, (Reported) Polyethylene Glycol 3350 17 Gm Powd.pack, 8.5 GM PO HS, (Reported) Simethicone 125 Mg Capsule, 125 MG PO TIDPC PRN for GAS, (Reported) Solifenacin Succinate 10 Mg Tablet, 10 MG PO Q48H, (Reported) Spironolactone 25 Mg Tablet, 25 MG PO BID, (Reported) Sucralfate 1 Gm/10 Ml Oral.susp, 10 ML PO TID PRN for REFLUX, (Reported) Past Xnmjzcj-Uqswdv-Jzxgoy Hx Patient Social History Alcohol Use: Denies Use Recreational Drug Use: No Smoking Status: Never a Smoker 2nd Hand Smoke Exposure: No Recent Foreign Travel: No Contact w/Someone Who Travel: No Recent Infectious Disease Expo: No Recent Hopitalizations: No (rotator cuff surgey, 2004, 2009 reads landing glaucoma) Immunizations Up To Date Date of Pneumonia Vaccine: Jul 11, 2014 Date of Influenza Vaccine: Apr 09, 2015 Past Medical History Surgeries: Yes Eye Surgery, Hysterectomy, Orthopedic Respiratory: No Currently Using CPAP: No Currently Using BIPAP: No Cardiac: Yes Atrial Fibrillation, High Cholesterol, Hypertension Neurological: Yes Neuropathy Reproductive Disorders: No Sexually Transmitted Disease: No Genitourinary: Yes (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) Gastrointestinal: Yes (35" OF COLON REMOVED) Musculoskeletal: Yes Osteoporosis Endocrine: Yes Hypothyroidsim Cancer: Yes Kidney Psychosocial: No Integumentary: No Family Medical History Heart Disease Review of Systems Time Seen by Provider: 12:39 Sepsis Event Evaluation Height, Weight, BMI Height: 5'1.00" Weight: 105lbs. 9.6oz. [id number]; 20.0 BMI Method:Stated Exam Exam Vital Signs Date Time Temp Pulse Resp B/P (MAP) Pulse Ox O2 Delivery O2 Flow Rate FiO2 12/17/18 14:17 93 Vapotherm 15.00 35 12/17/18 13:00 71 12/17/18 12:00 78 22 130/57 (81) 91 Vapotherm 35.00 15.00 12/17/18 11:30 98.6 12/17/18 10:57 97 Vapotherm 15.00 35 12/17/18 08:00 Vapotherm 15.00 35 12/17/18 08:00 99.5 87 23 119/82 (94) 95 Vapotherm 35.00 15.00 12/17/18 07:32 93 Vapotherm 15.00 35 12/17/18 07:32 85 93 12/17/18 07:00 72 12/17/18 04:48 76 22 90 Vapotherm 35.00 15.00 12/17/18 04:48 88 Vapotherm 15.00 30 12/17/18 04:00 73 21 106/54 (71) 92 Vapotherm 30.00 15.00 12/17/18 04:00 98.2 12/17/18 02:04 92 Vapotherm 15.00 30 12/17/18 01:13 83 20 91 Vapotherm 30.00 15.00 12/17/18 01:02 89 Vapotherm 15.00 24 12/17/18 01:00 87 12/17/18 00:00 85 14 128/60 (82) 92 Vapotherm 24.00 15.00 12/16/18 23:53 95 14 93 Vapotherm 24.00 15.00 12/16/18 23:35 97.3 12/16/18 22:05 95 Nasal Cannula 0.50 12/16/18 20:00 83 19 124/58 (80) 93 Nasal Cannula 0.50 12/16/18 20:00 Nasal Cannula 0.50 12/16/18 20:00 97.1 12/16/18 19:31 90 Nasal Cannula 0.50 12/16/18 19:00 90 I & O 12/17/18 07:00 Intake Total 580 ml Output Total 775 ml Balance -195 ml Height & Weight Height: 5'1.00" Weight: 105lbs. 9.6oz. 47.271789ko; 20.0 BMI Method:Stated General Appearance: No Apparent Distress, WD/WN, Chronically ill, Mild Distress, Thin, Other (fragile) HEENT: Pharynx Normal Neck: Full Range of Motion, Normal Inspection, Non Tender, Supple Respiratory: Chest Non Tender, Lungs Clear, Normal Breath Sounds, No Accessory Muscle Use, No Respiratory Distress Cardiovascular: No Gallop, No Murmur, Irregularly Irregular, Tachycardia Extremity: Normal Capillary Refill, No Pedal Edema Neurologic/Psychiatric: Alert, Oriented x3, No Motor/Sensory Deficits, Normal Mood/Affect Skin: Warm/Dry Lymphatic: No Adenopathy Results Lab Laboratory Tests 12/16/18 07:27 12/17/18 03:30 Assessment/Plan Assessment/Plan Pneumonia with left pleural effusion -Currently on Zosyn -Check CT of chest without contrast -check villanueva cultures -Check LA -(Echocardiogram done 12/11/18 EF 55-65% Left atrial dilatation 4.2cm, MVP with mod MR, mod-sev TR PA 50-55mmHg, continue to monitor) Metabolic acidosis -Check LA Pulmonary HTN -monitor for now 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
[2018-12-17] MEDS: methylPREDNISolone 40 MG/ML (Solu-MEDROL) VIAL IV SCH ×2 (16:42→22:06)
[2018-12-17] MEDS ORDERED: LACTATED RINGERS 1,000 ML IV ONE ×2 (17:59→18:15)
[2018-12-17] MEDS ORDERED: LACTATED RINGERS 1,000 ML IV SCH ×3 (18:30→21:15)
--- NOTE | 2018-12-17 18:47 | Diagnostic Imaging Report ---
PROCEDURE: CT chest without contrast. TECHNIQUE: Multiple contiguous axial images were obtained through the chest without the use of intravenous contrast. Auto Exposure Controls were utilized during the CT exam to meet ALARA standards for radiation dose reduction. INDICATION: Atrial fibrillation, weakness, pleural effusion. CORRELATION STUDY: CT chest 10/17/2018. FINDINGS: Heart size enlarged with scattered coronary artery calcification. Trace pericardial effusion is present. Scattered prominent mediastinal lymph nodes are present. While somewhat difficult to visualize on noncontrast imaging, largest at the precarinal region measures 15 mm short axis dimension and appears adversely changed from prior study. Calcified hilar granulomas. There may be slightly more prominent appearance about the right suprahilar region compared to prior study. There has been development of moderate size bilateral pleural effusions predominantly layering dependently. Fluid slightly greater perhaps on the right compared to the left. There is resultant significant compressive atelectasis of both lower lobes. There are emphysematous changes through the lung lopez. Calcified granuloma of the lateral left lung. Rather extensive somewhat coarse groundglass type opacities through large portion of the remaining right upper lobe with some areas in the subpleural region of the left upper lobe. Scattered slightly more prominent parenchymal densities involving both lung lopez are present as well. Visualized portions of the upper abdomen demonstrate heterogeneous attenuation of the liver. Slight haziness about the upper abdominal mesentery. Dense calcification of the visualized abdominal aorta including bilateral renal arteries. IMPRESSION: 1. Development of moderate to moderately large bilateral pleural effusions predominantly layering dependently. This results in significant compressive atelectasis bilateral lower lobes left greater than right. 2. Extensive somewhat coarse groundglass infiltrates throughout both lung lopez significantly greater involving the right upper lobe. May reflect asymmetric edema or superimposed pneumonia. 3. There are some additional parenchymal densities including slightly more nodular densities of which underlying mass lesions are not excluded. Possibility of neoplasm should not be excluded at this time. Additionally, there is question of some fullness of the right hilum as well as pathologically enlarged mediastinal lymph nodes. 4. Close clinical and short-term followup imaging correlation is recommended. Preferably, to include contrast if patient is clinically able. Dictated by: Dictated on workstation # [id number]
[2018-12-17 19:04] LABS: ABG BASE EXCESS -5.3 MMOL/L (-2.5-2.5); ABG OXYGEN SATURATION 87 % (94-100); ABG PCO2 26 MMHG (35-45); ABG PH 7.45 (7.37-7.43); ABG PO2 47 MMHG (79-93); ABG TCO2 18.9 MMOL/L (21.0-31.0)
[2018-12-17 19:06] LABS: ALLENS TEST YES-POS; INSPIRED O2 15L 35% VAPOTHERM; PATIENT TEMP 97.2; VENTILATOR NO
--- NOTE | 2018-12-17 19:43 | NUR ---
Notified Dr. Singh of critical Lactic Acid 3.16, unable to obtain IV access larger than 22g. Orders received at this time.
[2018-12-17] MEDS: LACTATED RINGERS 1,000 ML IV SCH (20:13)
--- NOTE | 2018-12-17 20:29 | NUR ---
Contacted Dr. Bahena, family requesting to change medication from Xanax to Ativan. Orders received at this time.
[2018-12-17] MEDS: DOCUSATE SODIUM 100 MG (COLACE) CAP PO SCH (21:32)
[2018-12-17] MEDS: PANTOPRAZOLE 40 MG (PROTONIX) TAB PO SCH (21:32)
[2018-12-17] MEDS: LORazepam 0.5 MG (ATIVAN) TABLET PO SCH (21:32)
[2018-12-17] MEDS: POLYETHYLENE GLYCOL 17 GM (MIRALAX) PACK PO SCH (21:33)
[2018-12-17] MEDS: ALPRAZolam 0.25 MG (XANAX) TAB PO SCH (21:38)
[2018-12-18] VITALS (14 sets, daily range): BP systolic 114–157; BP diastolic 60–86
[2018-12-18] MEDS: LACTATED RINGERS 1,000 ML IV SCH ×4 (00:06→12:53)
[2018-12-18] MEDS: DILTIAZEM 30 MG (CARDIZEM) TAB PO SCH ×4 (00:08→18:29)
[2018-12-18] MEDS: PIPERACILLIN/TAZOBACTAM (BULK) 4.5 GM in NS (IVPB) 100 ML IV SCH ×3 (02:11→18:29)
[2018-12-18] MEDS: RT-ALBUTEROL/IPRATROPIUM 3 ML (DUONEB) VIAL INH SCH ×6 (02:39→22:25)
[2018-12-18 03:01] LABS: BILIRUBIN,URINE NEGATIVE (NEGATIVE); CLARITY,URINE CLEAR; COLOR,URINE YELLOW; GLUCOSE, URINE (UA) 4+ (NEGATIVE); KETONES,URINE NEGATIVE (NEGATIVE); LEUKOCYTE ESTERASE ,URINE NEGATIVE (NEGATIVE); NITRITE,URINE NEGATIVE (NEGATIVE); PH,URINE 5 (5-9); PROTEIN,URINE 2+ (NEGATIVE); UROBILINOGEN,URINE NORMAL (NORMAL)
[2018-12-18 03:15] LABS: BACTERIA,URINE FEW /HPF; HYALINE CASTS, URINE RARE /LPF; WBC,URINE RARE /HPF
[2018-12-18] MEDS: DIGOXIN 0.125 MG (LANOXIN) TAB PO SCH (03:34)
[2018-12-18] MEDS: methylPREDNISolone 40 MG/ML (Solu-MEDROL) VIAL IV SCH ×4 (03:34→21:00)
[2018-12-18 04:02] LABS: HEMOGLOBIN 11.7 G/DL (11.5-16.0); RED CELL DISTRIBUTION WIDTH 13.5 % (10.0-14.5); WHITE BLOOD COUNT 11.8 10^3/uL (4.3-11.0)
[2018-12-18 04:16] LABS: ALANINE AMINOTRANSFERASE 51 U/L (0-55); ALBUMIN 2.6 GM/DL (3.2-4.5); ALKALINE PHOSPHATASE 83 U/L (40-136); BILIRUBIN,TOTAL 0.4 MG/DL (0.1-1.0); BUN/CREATININE RATIO 28; CALCIUM 8.4 MG/DL (8.5-10.1); CARBON DIOXIDE 17 MMOL/L (21-32); CHLORIDE 100 MMOL/L (98-107); CREATININE SERUM 0.81 MG/DL (0.60-1.30); GFR ESTIMATED > 60; GLUCOSE 211 MG/DL (70-105); PHOSPHORUS 4.6 MG/DL (2.3-4.7); POTASSIUM 5.1 MMOL/L (3.6-5.0); SODIUM 129 MMOL/L (135-145); TOTAL PROTEIN 5.9 GM/DL (6.4-8.2)
--- NOTE | 2018-12-18 05:54 | Pulmonary Progress Note ---
Subjective Time Seen by a Provider: 05:58 Subjective/Events-last exam Pt is on vapotherm however only at 35%. Sepsis Event Evaluation Height, Weight, BMI Height: 5'1.00" Weight: 105lbs. 9.6oz. 47.964696xu; 20.0 BMI Method:Stated Focused Exam Lactate Level 12/17/18 16:55: Lactic Acid Level 2.30*H 12/17/18 19:15: Lactic Acid Level 3.16*H Exam Exam Vital Signs Date Time Temp Pulse Resp B/P (MAP) Pulse Ox O2 Delivery O2 Flow Rate FiO2 12/18/18 04:00 70 21 128/69 (88) 93 Vapotherm 35.00 15.00 12/18/18 03:33 97.2 12/18/18 02:40 95 Vapotherm 15.00 35 12/18/18 01:00 88 12/18/18 00:00 97.2 70 17 114/66 (82) 95 Vapotherm 35.00 15.00 12/17/18 22:50 98 Vapotherm 15.00 35 12/17/18 22:02 97.1 12/17/18 21:14 73 17 126/57 (80) 94 Vapotherm 35.00 15.00 12/17/18 20:00 Vapotherm 15.00 35 12/17/18 20:00 96.9 76 21 117/95 (102) 95 Vapotherm 35.00 15.00 12/17/18 19:03 98 Vapotherm 15.00 35 12/17/18 19:00 65 12/17/18 16:00 97.0 12/17/18 16:00 68 20 116/63 (80) 91 Vapotherm 35.00 15.00 12/17/18 14:17 93 Vapotherm 15.00 35 12/17/18 13:00 71 12/17/18 12:00 78 22 130/57 (81) 91 Vapotherm 35.00 15.00 12/17/18 11:30 98.6 12/17/18 10:57 97 Vapotherm 15.00 35 12/17/18 08:00 Vapotherm 15.00 35 12/17/18 08:00 99.5 87 23 119/82 (94) 95 Vapotherm 35.00 15.00 12/17/18 07:32 93 Vapotherm 15.00 35 12/17/18 07:32 85 93 12/17/18 07:00 72 I & O 12/18/18 07:00 Intake Total 92939 ml Output Total 550 ml Balance 9990 ml Height & Weight Height: 5'1.00" Weight: 105lbs. 9.6oz. 47.072554no; 20.0 BMI Method:Stated General Appearance: No Apparent Distress, WD/WN, Chronically ill, Mild Distress, Thin, Other (fragile) HEENT: Pharynx Normal Neck: Full Range of Motion, Normal Inspection, Non Tender, Supple Respiratory: Chest Non Tender, Lungs Clear, Normal Breath Sounds, No Accessory Muscle Use, No Respiratory Distress Cardiovascular: No Gallop, No Murmur, Irregularly Irregular, Tachycardia Extremity: Normal Capillary Refill, No Pedal Edema Neurologic/Psychiatric: Alert, Oriented x3, No Motor/Sensory Deficits, Normal Mood/Affect Skin: Warm/Dry Lymphatic: No Adenopathy Results Lab Laboratory Tests 12/16/18 07:27 12/17/18 03:30 12/18/18 03:10 Assessment/Plan Assessment/Plan Pneumonia with left pleural effusion -Continue Zosyn - CT of chest-- reviewed -check villanueva cultures -Check LA -(Echocardiogram done 12/11/18 EF 55-65% Left atrial dilatation 4.2cm, MVP with mod MR, mod-sev TR PA 50-55mmHg, continue to monitor) Bilateral right > Left pleural effusions -If ok with cardiology hold Eliquis and will do thoracentesis tomorrow morning -Decrease 75cc/hr Metabolic acidosis -Check LA Pulmonary HTN -monitor for now CRF with 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
[2018-12-18] MEDS ORDERED: SODIUM BICARB 8.4% 50 MEQ/50 ML VIAL IV NR (06:00)
[2018-12-18] MEDS: LEVOTHYROXINE 75 MCG (LEVOTHROID) TABLET PO SCH (06:28)
[2018-12-18] MEDS: SIMETHICONE 80 MG (MYLICON) CHEW PO SCH ×4 (08:23→21:00)
--- NOTE | 2018-12-18 08:41 | Progress Note ---
Subjective Date Seen by a Provider: Dec 18, 2018 Time Seen by a Provider: 08:30 Subjective/Events-last exam PT REPORTS THAT SHE IS FEELING POORLY THIS MORNING, MORE SHORT OF BREATH THAN YESTERDAY. SHE HAD A ROUGH NIGHT AND HAD TROUBLE BREATHING LAST NIGHT. Review of Systems General: Fatigue HEENT: No Head Aches Pulmonary: Dyspnea, Cough Cardiovascular: No: Chest Pain, Palpitations Gastrointestinal: No: Nausea, Abdominal Pain Genitourinary: Other (DAWKINS CATHETER IN PLACE) Neurological: Weakness; No: Confusion Focused Exam Lactate Level 12/17/18 19:15: Lactic Acid Level 3.16*H 12/18/18 06:10: Lactic Acid Level 2.05*H 12/18/18 08:10: Lactic Acid Level Laboratory Tests Test 12/18/18 06:10 12/18/18 08:10 Lactic Acid Level 2.05 MMOL/L (0.50-2.00) *H Objective Exam Last Set of Vital Signs Vital Signs Date Time Temp Pulse Resp B/P (MAP) Pulse Ox O2 Delivery O2 Flow Rate FiO2 12/18/18 08:00 87 16 116/70 (85) 92 Vapotherm 35.00 15.00 12/18/18 07:04 35 12/18/18 03:33 97.2 Capillary Refill : I&O Intake and Output 12/18/18 00:00 Intake Total 44949 ml Output Total 750 ml Balance 9790 ml Intake Oral 420 ml IV Total 82657 ml Output Urine Total 750 ml General: Alert, Oriented X3, Cooperative HEENT: Atraumatic, Other (RIGHT EYE CLOUDY, LEFT EYE CLEAR - PUPIL ROUND AND REACTIVE) Neck: Supple Lungs: Other (DECREASED BREATH SOUNDS THROUGHOUT WITH CRACKLES) Heart: Normal S1, Normal S2, Other (irreularly irregular) Abdomen: Normal Bowel Sounds, Soft, No Tenderness Extremities: No Clubbing, Other (TRACE EDEMA) Skin: No Rashes, No Breakdown Neuro: Normal Speech, Cranial Nerves 3-12 NL Psych/Mental Status: Mental Status NL, Mood NL Results Lab Laboratory Tests 12/17/18 16:55: Lactic Acid Level 2.30*H, B-Type Natriuretic Peptide 140.9H 12/17/18 18:40: Blood Gas Puncture Site L BRACH, Blood Gas Patient Temperature 97.2, Arterial Blood pH 7.45H, Arterial Blood Partial Pressure CO2 26L, Arterial Blood Partial Pressure O2 47L, Arterial Blood HCO3 18L, Arterial Blood Total CO2 18.9L, Arterial Blood Oxygen Saturation 87L, Arterial Blood Base Excess -5.3L, Jaxon Test YES-POS, Blood Gas Ventilator Setting NO, Blood Gas Inspired Oxygen 15L 35% VAPOTHERM 12/17/18 19:15: Lactic Acid Level 3.16*H 12/17/18 20:50: Urine Color YELLOW, Urine Clarity CLEAR, Urine pH 5, Urine Specific [place] 1 .020, Urine Protein 2+H, Urine Glucose (UA) 4+H, Urine Ketones NEGATIVE, Urine Nitrite NEGATIVE, Urine Bilirubin NEGATIVE, Urine Urobilinogen NORMAL, Urine Leukocyte Esterase NEGATIVE, Urine RBC (Auto) 1+H, Urine RBC 2-5H, Urine WBC RARE, Urine Crystals NONE, Urine Bacteria FEWH, Urine Casts PRESENT, Urine Hyaline Casts RARE, Urine Mucus NEGATIVE, Urine Culture Indicated NO 12/18/18 03:10: White Blood Count 11.8H, Red Blood Count 3.85L, Hemoglobin 11.7, Hematocrit 34L, Mean Corpuscular Volume 89, Mean Corpuscular Hemoglobin 30, Mean Corpuscular Hemoglobin Concent 34, Red Cell Distribution Width 13.5, Platelet Count 325, Mean Platelet Volume 10.0, Sodium Level 129L, Potassium Level 5.1H, Chloride Level 100, Carbon Dioxide Level 17L, Anion Gap 12, Blood Urea Nitrogen 23H, Creatinine 0.81, Estimat Glomerular Filtration Rate > 60, BUN/Creatinine Ratio 28, Glucose Level 211H, Calcium Level 8.4L, Corrected Calcium 9.5, Phosphorus Level 4.6, Magnesium Level 2.0, Total Bilirubin 0.4, Aspartate Amino Transf (AST/SGOT) 31, Alanine Aminotransferase (ALT/SGPT) 51, Alkaline Phosphatase 83, B-Type Natriuretic Peptide 220.0H, Total Protein 5.9L, Albumin 2.6L 12/18/18 06:10: Lactic Acid Level 2.05*H 12/18/18 08:10: Assessment/Plan Assessment/Plan Assess & Plan/Chief Complaint HYPONATREMIA ATRIAL FIBRILLATION HYPERTENSION HYPOTHYROIDISM CHRONIC ANXIETY HYPERLIPIDEMIA ESOPHAGEAL REFLUX PLEURAL EFFUSION HYPONATREMIA -INITIALLY REPLACED WITH IV FLUIDS, THEN SHE WAS STARTED ON SODIUM CHLORIDE TAB HOWEVER DR. HALL HAS HAD THE SODIUM TAB HELD DUE TO EDEMA. - MONITOR SODIUM LEVEL DAILY - IMPROVED ON LACTATED RINGERS SOLUTION. PLEURAL EFFUSION - WITH NODULARITY ON CT SCAN OF HILUM - AND EVIDENCE OF PNEUMONIC PROCESS - ADVISED PT AND HER DTR OF CT SCAN FINDINGS - DR. LOZADA TO PERFORM THORACENTESIS TOMORROW AND WE WILL MONITOR HER SYMPTOMS. ABNORMAL FULLNESS IN RIGHT UPPER LOBE AND MEDIASTINUM - LIKELY DUE TO THE ASPIRATION TYPE EVENT - WILL BE ABLE TO SEE MORE CLEARLY ON REPEAT CT SCAN DONE AFTER SHE HAS HER THORACENTESIS. ATRIAL FIBRILLATION -UNCONTROLLED - WITH AN ACUTE EPISODE THIS MORNING, SHE RECEIVED IV METOPROLOL, AND THEN WAS TRANSFERRED UP TO ICU STEPDOWN UNIT FOR CLOSE MONITORING DR. HALL ADJUSTS HER MEDICATIONS. - DEFER TO DR. HALL - CONTINUE WITH BLOOD THINNERS - HOLD DOSE TODAY AND TONIGHT WITH ANTICIPATION OF THORACENTESIS TOMORROW. HYPERTENSION - RESUMED HOME REGIMEN HYPOTHYROIDISM - CHECKED THYROID LABS - THEY ARE NORMAL CHRONIC ANXIETY - SUPPORTIVE CARE HYPERLIPIDEMIA - HOLD STATIN AT THIS TIME ESOPHAGEAL REFLUX - HOLD PPI THERAPY FOR NOW STARTED PHYSICAL THERAPY DUE TO HER WEAKNESS. - SHE IS UNABLE TO BE TRANSFERRED TO INPT REHAB DUE TO HER WEAKNESS, AT T HIS POINT, I AM NOT SURE SHE WILL BE ABLE TO GO DOWN TO IRF, WE MAY NEED TO CONSIDER A HALF-WAY FOR SHORT TERM REHAB. DEPRESSION -AND ANXIETY - RESTARTED SSRI, INSOMNIA - UNCONTROLLED - STOP XANAX, START ON ATIVAN. Clinical Quality Measures Admission Status Admission Dx HYPONATREMIA ATRIAL FIBRILLATION HYPERTENSION HYPOTHYROIDISM CHRONIC ANXIETY HYPERLIPIDEMIA ESOPHAGEAL REFLUX DVT/VTE Risk/Contraindication: Risk Factor Score Per Nursin RFS Level Per Nursing on Admit: 2=Moderate JUNIOR SELLERS MD Dec 18, 2018 08:41
[2018-12-18] MEDS: Brinzolamide/Brimonidine Tart (Simbrinza) 1%-0.2% Eye Drops OS SCH ×2 (09:14→21:13)
[2018-12-18] MEDS: LACTOBACILLUS ACIDOPHILUS (PROBIOTIC) CAPSULE PO SCH (09:14)
[2018-12-18] MEDS: ARTIFICAL TEARS 0.4 ML UNIT DOSE (REFRESH PLUS) OU SCH ×4 (09:14→21:13)
[2018-12-18] MEDS: meTOprolol SUCCINATE 100 MG (TOPROL XL) TAB PO SCH (09:15)
[2018-12-18] MEDS: NYSTATIN ORAL SUSP 5 ML UDC PO SCH ×4 (09:15→21:08)
[2018-12-18] MEDS: SODIUM CHLORIDE 1 GM TAB (NON-FORMULARY) PO SCH ×2 (09:15→20:34)
[2018-12-18] MEDS ORDERED: FUROSEMIDE 40 MG/4 ML INJ (LASIX) IVP NR (09:30)
--- NOTE | 2018-12-18 10:30 | Diagnostic Imaging Report ---
EXAMINATION: Portable erect AP chest at 10:01 AM. INDICATION: PICC line insertion. FINDINGS: In the interval since the prior exam of 12/17/2018, a left-sided PICC line has been inserted. The line is looped on itself in the region of the proximal subclavian vein but the tip of the line overlies the mid portion of the superior vena cava. There is no pneumothorax on the left. The overall appearance of the chest has not changed significantly otherwise. IMPRESSION: 1. There has been interval insertion of a left-sided PICC line. There is no evidence for a pneumothorax but the line is looped on itself in the region of the left subclavian vein. Clinical followup is recommended. 2. The overall appearance of the chest itself is stable. No new abnormality has developed. 3. These results were called to Yandy at the patient's nursing station at the time of this dictation. Dictated by: Dictated on workstation # [id number]
--- NOTE | 2018-12-18 11:31 | Diagnostic Imaging Report ---
INDICATION: PICC line repositioning. Frontal chest obtained at 11:17 a.m. and compared to same day at 10:01 a.m. FINDINGS: The PICC line from left arm is seen with tip overlying the low SVC. Cardiomegaly is again noted with bibasilar infiltrates and bilateral pleural effusions. IMPRESSION: Unchanged cardiomegaly with central vascular congestion and bibasilar infiltrates and bilateral pleural effusions. The PICC line has been repositioned compared to the prior study, tip is now overlying the low SVC. Dictated by: Dictated on workstation # [id number]
--- NOTE | 2018-12-18 15:03 | Physical Therapy Progress Note ---
Therapy Progress Note No orders for continued PT yet. Nurse states patient is now using a Bipap. Will keep checking back. KAJAL HEREDIA PT Dec 18, 2018 15:03
[2018-12-18] MEDS: FUROSEMIDE 40 MG/4 ML INJ (LASIX) IVP SCH (16:33)
--- NOTE | 2018-12-18 17:32 | Cardiology Progress Note ---
Subjective Date Seen by Provider: Dec 18, 2018 Time Seen by Provider: 17:30 Subjective/Events-last exam Patient is in bed, feeling better, breathing better Review of Systems General: No Chills, No Night Sweats, No Fatigue, No Malaise, No Appetite, No Other HEENT: No Head Aches, No Visual Changes, No Eye Pain, No Ear Pain, No Dysphasia, No Sinus Congestion, No Post Nasal Drip, No Sore Throat, No Other Pulmonary: Dyspnea; No Cough, No Pleuritic Chest Pain, No Other Cardiovascular: No: Chest Pain, Palpitations, Orthopnea, Paroxysmal Noc. Dyspnea, Edema, Lt Headedness, Other Focused Exam Lactate Level 12/17/18 19:15: Lactic Acid Level 3.16*H 12/18/18 06:10: Lactic Acid Level 2.05*H 12/18/18 08:10: Lactic Acid Level 2.37*H Objective-Cardiology Exam Last Set of Vital Signs Vital Signs 12/18/18 12/18/18 12/18/18 12/18/18 08:00 12:00 16:00 17:00 Temp 97.3 Pulse 86 Resp 21 B/P (MAP) 138/66 (90) Pulse Ox 100 O2 Delivery High Flow N/C O2 Flow Rate 10.00 FiO2 35 Capillary Refill : I&O Intake and Output 12/18/18 00:00 Intake Total 32647 ml Output Total 750 ml Balance 42755 ml Intake Oral 420 ml IV Total 08396 ml Output Urine Total 750 ml General: Alert, Oriented X3, Cooperative HEENT: Atraumatic, Other (RIGHT EYE CLOUDY, LEFT EYE CLEAR - PUPIL ROUND AND REACTIVE) Neck: Supple Lungs: Other (DECREASED AIR MOVEMENT THROUGHOUT, FAINT CRACKLES IN UPPER CHEST ON RIGHT) Heart: Normal S1, Normal S2, Other (irreularly irregular) Abdomen: Normal Bowel Sounds, Soft, No Tenderness Extremities: No Clubbing, Other (TRACE EDEMA) Skin: No Rashes, No Breakdown Neuro: Normal Speech, Cranial Nerves 3-12 NL Psych/Mental Status: Mental Status NL, Mood NL Results Lab Laboratory Tests 12/18/18 03:10 A/P-Cardiology Admission Diagnosis Hyponatremia Chronic atrial fibrillation CAD HTN HLP Assessment/Plan Hyponatremia, continue to monitor, Hold IVF and monitor Shortness of breath, reporting improvement today, chest x-ray and CT scan reported bilateral pleural effusion and consolidation in the right upper lobe, workup with Dr. Singh. Generalized weakness/debility- PT/OT Persistent atrial fibrillation, heart rate is better controlled, we'll continue to monitor closely due to the history of tachybradycardia episode. 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 managed by Dr. Singh Patient had a SPECT perfusion study done in July 2015 at [facility] reported to have normal left ventricular function with ejection fraction 56 percent and normal LV perfusion. 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 Continue to monitor [id number] score is 4, yearly risk of stroke without oral anticoagulation is 4 percent. 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 Continue to monitor. Nonobstructive carotid artery stenosis-most recent carotid duplex done September 2017, continue to monitor. Hypothyroidism- management per Dr. Bahena Anxiety, depression, managed by primary care physician GERMAN Clinical Quality Measures DVT/VTE Risk/Contraindication: Risk Factor Score Per Nursin RFS Level Per Nursing on Admit: 2=Moderate MICHAEL HALL MD Dec 18, 2018 17:32
[2018-12-18] MEDS: DOCUSATE SODIUM 100 MG (COLACE) CAP PO SCH (21:00)
[2018-12-18] MEDS: LORazepam 0.5 MG (ATIVAN) TABLET PO SCH (21:00)
[2018-12-18] MEDS: PANTOPRAZOLE 40 MG (PROTONIX) TAB PO SCH (21:00)
[2018-12-18] MEDS: POLYETHYLENE GLYCOL 17 GM (MIRALAX) PACK PO SCH (21:00)
[2018-12-19] VITALS (10 sets, daily range): BP systolic 98–133; BP diastolic 51–88
[2018-12-19] MEDS: DILTIAZEM 30 MG (CARDIZEM) TAB PO SCH ×4 (00:37→17:45)
[2018-12-19] MEDS: PIPERACILLIN/TAZOBACTAM (BULK) 4.5 GM in NS (IVPB) 100 ML IV SCH ×3 (02:33→17:45)
[2018-12-19] MEDS: LACTATED RINGERS 1,000 ML IV SCH (02:34)
[2018-12-19] MEDS: RT-ALBUTEROL/IPRATROPIUM 3 ML (DUONEB) VIAL INH SCH ×6 (02:38→22:00)
[2018-12-19 03:27] LABS: HEMOGLOBIN 10.2 G/DL (11.5-16.0); MEAN PLATELET VOLUME 9.4 FL (7.4-10.4); RED CELL DISTRIBUTION WIDTH 13.6 % (10.0-14.5); WHITE BLOOD COUNT 10.9 10^3/uL (4.3-11.0)
[2018-12-19 03:51] LABS: ALBUMIN 2.6 GM/DL (3.2-4.5); BILIRUBIN,TOTAL 0.4 MG/DL (0.1-1.0); CALCIUM 8.1 MG/DL (8.5-10.1); CREATININE SERUM 0.95 MG/DL (0.60-1.30); MAGNESIUM 1.7 MG/DL (1.8-2.4); POTASSIUM 3.5 MMOL/L (3.6-5.0); TOTAL PROTEIN 5.7 GM/DL (6.4-8.2)
[2018-12-19] MEDS ORDERED: LIDOCAINE 1% INJ 20 ML 20 ML VIAL ONE ×2 (04:41→04:42)
--- NOTE | 2018-12-19 05:17 | Pulmonary Progress Note ---
Subjective Time Seen by a Provider: 05:23 Subjective/Events-last exam Pt is still on Vapotherm willl d/c and change to regular NC. Sepsis Event Evaluation Height, Weight, BMI Height: 5'1.00" Weight: 105lbs. 9.6oz. [id number]; 20.0 BMI Method:Stated Focused Exam Lactate Level 12/17/18 19:15: Lactic Acid Level 3.16*H 12/18/18 06:10: Lactic Acid Level 2.05*H 12/18/18 08:10: Lactic Acid Level 2.37*H Exam Exam Vital Signs Date Time Temp Pulse Resp B/P (MAP) Pulse Ox O2 Delivery O2 Flow Rate FiO2 12/19/18 04:00 114 26 125/73 (90) 97 Vapotherm 30.00 20.00 12/19/18 04:00 97.7 12/19/18 03:00 115 10 114/66 (82) 100 Vapotherm 30.00 20.00 12/19/18 02:39 98 Vapotherm 25.00 30 12/19/18 02:00 86 15 110/74 (86) 97 Vapotherm 30.00 20.00 12/19/18 01:08 86 12/19/18 01:00 87 13 130/88 (102) 99 Vapotherm 30.00 20.00 12/19/18 00:00 97.0 12/19/18 00:00 95 16 112/59 (76) 97 Vapotherm 30.00 20.00 12/18/18 23:00 89 16 116/82 (93) 95 Vapotherm 30.00 20.00 12/18/18 22:25 97 Vapotherm 25.00 30 12/18/18 22:00 85 12 130/81 (97) 99 Vapotherm 30.00 20.00 12/18/18 21:00 97 24 153/73 (99) 99 Vapotherm 30.00 20.00 12/18/18 20:20 Vapotherm 30.00 20.00 12/18/18 20:15 97 Vapotherm 25.00 30 12/18/18 20:00 High Flow N/C 10.00 12/18/18 20:00 87 20 138/66 (90) 99 High Flow N/C 10.00 12/18/18 19:44 97.4 79 22 129/72 (91) 100 High Flow N/C 10.00 12/18/18 19:30 High Flow N/C 10.00 12/18/18 19:09 78 12/18/18 19:00 82 31 129/72 (91) 98 High Flow N/C 10.00 12/18/18 17:00 High Flow N/C 10.00 12/18/18 16:00 86 21 138/66 (90) 100 NIV Bilevel 30.00 12/18/18 15:25 NIV Bilevel 30.00 12/18/18 15:17 96 18 98 30.00 12/18/18 13:05 High Flow N/C 10.00 12/18/18 13:04 97 High Flow N/C 10.00 12/18/18 12:00 69 16 157/86 (109) 95 NIV Bilevel 30.00 12/18/18 12:00 72 12/18/18 12:00 97.3 12/18/18 10:52 NIV Bilevel 30.00 12/18/18 10:50 73 14 99 40.00 12/18/18 09:21 97.9 12/18/18 09:14 92 23 95 40.00 12/18/18 09:14 NIV Bilevel 40.00 12/18/18 08:00 87 16 116/70 (85) 92 Vapotherm 35.00 15.00 12/18/18 08:00 Vapotherm 15.00 35 12/18/18 07:04 95 Vapotherm 20.00 35 12/18/18 07:00 86 I & O 12/19/18 07:00 Intake Total 1480 ml Output Total 1275 ml Balance 205 ml Height & Weight Height: 5'1.00" Weight: 105lbs. 9.6oz. 47.597541zb; 20.0 BMI Method:Stated General Appearance: WD/WN, Anxious, Chronically ill, Mild Distress, Thin, Other (fragile) HEENT: Pharynx Normal Neck: Full Range of Motion, Normal Inspection, Non Tender, Supple Respiratory: Chest Non Tender, Lungs Clear, Normal Breath Sounds, No Accessory Muscle Use, No Respiratory Distress Cardiovascular: No Gallop, No Murmur, Irregularly Irregular, Tachycardia Extremity: Normal Capillary Refill, No Pedal Edema Neurologic/Psychiatric: Alert, Oriented x3, No Motor/Sensory Deficits, Normal Mood/Affect Skin: Warm/Dry Lymphatic: No Adenopathy Results Lab Laboratory Tests 12/18/18 03:10 12/19/18 03:20 Assessment/Plan Assessment/Plan Pneumonia with sepsis and bilateral pleural effusions -Continue Zosyn - CT of chest-- reviewed -Repeat CT of chest s/p thoracentesis to help r/o underlying mass. -Will add CT of abd/pelvis to r/o mass - villanueva cultures pending -Decrease Solumedrol to Q 12 -repeat LA -(Echocardiogram done 12/11/18 EF 55-65% Left atrial dilatation 4.2cm, MVP with mod MR, mod-sev TR PA 50-55mmHg, continue to monitor) Metabolic lactic acidosis -repeat LA -Currently pt is getting both IVF and Lasix -I recommend holding Lasix and continuing IVF secondary to lactic acidosis. Pulmonary status is stable. -Will defer to Dr. Bahena's management. repeat LA is pending Bilateral right > Left pleural effusions s/p thoracentesis 800cc of clear yellow fluid drained -resume Eliquis -IVF LR at 75cc/hr -- Change to NS secondary to hyponatremia Hypokalemia/hypomag -replace Pulmonary HTN -monitor for now Afib rvr -cardiology following CRF with hx left nephrectomy secondary to low-grade papillary CA, noninvasive done in July 2015 Hyponatremia -Monitor CAD D/W with Dr. Bahena will continue to hold Eliquis for now and plan for thoracentesis on right side tomorrow. ZOILA LOZADA DO Dec 19, 2018 05:17
[2018-12-19 05:23] LABS: TOTAL PROTEIN 5.6 GM/DL (6.4-8.2)
[2018-12-19] MEDS ORDERED: inSUlin ASPART (NovoLOG) 1 UNIT/0.01 ML (CHARGE PER UNIT) ONE (05:33)
[2018-12-19] MEDS: POTASSIUM CL 10MEQ/50ML IVPB 50 ML IV SCH ×6 (05:41→11:06)
[2018-12-19 05:42] LABS: BODY FLUID APPEARENCE CLEAR; BODY FLUID COLOR YELLOW; BODY FLUID SOURCE THORACENTESIS
[2018-12-19] MEDS: MAGNESIUM 1 GM/100 ML IVPB 100 ML IV SCH ×2 (05:44→06:47)
[2018-12-19] MEDS: FUROSEMIDE 40 MG/4 ML INJ (LASIX) IVP SCH (05:51)
[2018-12-19] MEDS: LEVOTHYROXINE 75 MCG (LEVOTHROID) TABLET PO SCH (05:51)
[2018-12-19] MEDS: inSUlin ASPART (NovoLOG) 1 UNIT/0.01 ML (CHARGE PER UNIT) SQ SCH ×4 (05:51→21:00)
[2018-12-19 06:20] LABS: GLUCOSE,BODY FLUID 346 MG/DL; TOTAL PROTEIN,BODY FLUID 1.1 G/DL
[2018-12-19 06:21] LABS: LDH,BODY FLUID 43 U/L
--- NOTE | 2018-12-19 06:36 | Diagnostic Imaging Report ---
INDICATION: Post thoracentesis. FINDINGS: Upright portable chest shows cardiomegaly with normal vascularity. There is patchy airspace disease seen in the right upper lobe and at the right lung base. There is a small right-sided effusion. There is minimal left-sided effusion. There is no pneumothorax. PICC line tip is in the SVC right atrial junction region. IMPRESSION: Improving chest since the exam performed earlier on 12/19/2018. There is no pneumothorax. Dictated by: Dictated on workstation # [id number]
[2018-12-19 06:42] LABS: BODY FLUID RBC COUNT 13.8 /uL; BODY FLUID WBC TOTAL COUNT 11.1 /uL
[2018-12-19 06:43] LABS: BF OTHER CELLS 25 %; LYMPHOCYTES,BODY FLUID 45 %
--- NOTE | 2018-12-19 07:02 | Pulmonary Procedures ---
Pulmonary Procedures Date of Procedure Date of Service: Dec 19, 2018 Procedure: US guided complex left thoracentesis Preop DX: pleural effusion post op DX: 800 cc of yellow fluid obtained) Complications: None After informed consent obtained I used bedside US to localize pleural fluid. Pt has bilateral L>R pleural effusions. Skin was anesthetized at approximately the 10th ICS posterior axillary line. Thoracentesis needle was advanced through the 10th ICS posterior axillary line using US guidance. Needle was removed and catheter left in place.800cc of yellow fluid obtained using vacuum bottles. Catheter was then removed. Pt tolerated procedure well. No complications noted. ZOILA LOZADA DO Dec 19, 2018 07:02
--- NOTE | 2018-12-19 07:16 | Diagnostic Imaging Report ---
INDICATION: Pneumonia. FINDINGS: Portable chest shows cardiomegaly with vascular congestion. There are Sandrine B-lines present with no alveolar infiltrate seen. There are small effusions. IMPRESSION: There are changes consistent with fluid overload and interstitial edema. This is slightly worse than 12/18/2018 study. Dictated by: Dictated on workstation # [id number]
[2018-12-19] MEDS ORDERED: NS IV 1000 ML 1,000 ML IV ONE (08:00)
--- NOTE | 2018-12-19 08:22 | Progress Note ---
Subjective Date Seen by a Provider: Dec 19, 2018 Time Seen by a Provider: 08:22 Subjective/Events-last exam PT REPORTS THAT SHE IS FEELING QUITE SHORT OF BREATH, FEELING EXTREMELY FATIGUED, HER DTR REPORTS THAT SHE DID NOT SLEEP WELL FOR THE PAST FEW DAYS. SHE STATES THAT SHE CONTINUES TO HAVE TROUBLE BREATHING, COUGHING INTERMITTENTLY. SHE DENIES A SENSATION OF CONSTIPATION, BUT ADMITS THAT SHE HAS NOT HAD GOOD OUTPUT. STAFF WORRIED ABOUT HER DECREASED APPETITE. Review of Systems General: Fatigue, Malaise HEENT: No Head Aches, No Visual Changes Pulmonary: Dyspnea, Cough Cardiovascular: No: Chest Pain, Palpitations Gastrointestinal: No: Nausea, Vomiting Genitourinary: Other Neurological: Weakness; No: Confusion Focused Exam Lactate Level 12/18/18 08:10: Lactic Acid Level 2.37*H 12/19/18 05:35: Lactic Acid Level 5.72*H 12/19/18 08:00: Lactic Acid Level Laboratory Tests Test 12/19/18 05:35 12/19/18 08:00 Lactic Acid Level 5.72 MMOL/L (0.50-2.00) *H Objective Exam Last Set of Vital Signs Vital Signs Date Time Temp Pulse Resp B/P (MAP) Pulse Ox O2 Delivery O2 Flow Rate FiO2 12/19/18 07:00 82 12/19/18 06:32 100 High Flow N/C 5.00 12/19/18 06:00 17 133/88 (103) 12/19/18 04:00 97.7 12/19/18 02:39 30 Capillary Refill : I&O Intake and Output 12/19/18 00:00 Intake Total 650 ml Output Total 1575 ml Balance -925 ml Intake Oral 410 ml IV Total 240 ml Output Urine Total 1575 ml # Bowel Movements 2 General: Alert, Oriented X3, Cooperative HEENT: Atraumatic, Other (RIGHT EYE CLOUDY, LEFT EYE CLEAR - PUPIL ROUND AND REACTIVE) Neck: Supple Lungs: Other (DECREASED BREATH SOUNDS THROUGHOUT WITH CRACKLES) Heart: Normal S1, Normal S2, Other (irreularly irregular) Abdomen: Normal Bowel Sounds, Soft, No Tenderness Extremities: No Clubbing, Other (TRACE EDEMA) Skin: No Rashes, No Breakdown Neuro: Normal Speech, Cranial Nerves 3-12 NL Psych/Mental Status: Mental Status NL, Mood NL Results Lab Laboratory Tests 12/19/18 03:20: White Blood Count 10.9, Red Blood Count 3.31L, Hemoglobin 10.2L, Hematocrit 30L, Mean Corpuscular Volume 89, Mean Corpuscular Hemoglobin 31, Mean Corpuscular Hemoglobin Concent 35, Red Cell Distribution Width 13.6, Platelet Count 368, Mean Platelet Volume 9.4, Sodium Level 132L, Potassium Level 3.5L, Chloride Level 95L, Carbon Dioxide Level 21, Anion Gap 16H, Blood Urea Nitrogen 35H, Creatinine 0.95, Estimat Glomerular Filtration Rate 56, BUN/Creatinine Ratio 37, Glucose Level 320H, Calcium Level 8.1L, Corrected Calcium 9.2, Phosphorus Level 4.0, Magnesium Level 1.7L, Total Bilirubin 0.4, Aspartate Amino Transf (AST/SGOT) 31, Alanine Aminotransferase (ALT/SGPT) 59H, Alkaline Phosphatase 73, Lactate Dehydrogenase 258H, Total Protein 5.6L, Albumin 2.6L 12/19/18 05:09: Body Fluid Source THORACENTESIS, Body Fluid Color YELLOW, Body Fluid Appearance CLEAR, Body Fluid pH 7.0, Body Fluid WBC 11.1, Body Fluid RBC 13.8, Body Fluid Polynuclear WBCs 18, Body Fluid Mononuclear WBCs 12, Body Fluid Lymphocytes 45, Body Fluid Other Cells 25, Body Fluid Glucose 346, Body Fluid Total Protein 1.1, Body Fluid Lactate Dehydrogenase 43 12/19/18 05:35: Lactic Acid Level 5.72*H 12/19/18 08:00: Microbiology 12/17/18 Blood Culture - Preliminary, Resulted No growth 12/17/18 MRSA Screen - Final, Complete MRSA not isolated Assessment/Plan Assessment/Plan Assess & Plan/Chief Complaint HYPONATREMIA ATRIAL FIBRILLATION HYPERTENSION HYPOTHYROIDISM CHRONIC ANXIETY HYPERLIPIDEMIA ESOPHAGEAL REFLUX PLEURAL EFFUSION HYPONATREMIA -INITIALLY REPLACED WITH IV FLUIDS, THEN SHE WAS STARTED ON SODIUM CHLORIDE TAB HOWEVER DR. HALL HAS HAD THE SODIUM TAB HELD DUE TO EDEMA. - MONITOR SODIUM LEVEL DAILY - IMPROVED ON LACTATED RINGERS SOLUTION. PLEURAL EFFUSION - WITH NODULARITY ON CT SCAN OF HILUM - AND EVIDENCE OF PNEUMONIC PROCESS - ADVISED PT AND HER DTR OF CT SCAN FINDINGS - DR. LOZADA TO PERFORM THORACENTESIS TOMORROW AND WE WILL MONITOR HER SYMPTOMS. ABNORMAL FULLNESS IN RIGHT UPPER LOBE AND MEDIASTINUM - LIKELY DUE TO THE ASPIRATION TYPE EVENT - WILL BE ABLE TO SEE MORE CLEARLY ON REPEAT CT SCAN DONE AFTER SHE HAS HER THORACENTESIS. ATRIAL FIBRILLATION -UNCONTROLLED - DEFER TO DR. HALL - CONTINUE WITH BLOOD THINNERS - HOLD DOSE TODAY AND TONIGHT WITH ANTICIPATION OF THORACENTESIS TOMORROW. HYPERTENSION - RESUMED HOME REGIMEN HYPOTHYROIDISM - CHECKED THYROID LABS - THEY ARE NORMAL CHRONIC ANXIETY - SUPPORTIVE CARE HYPERLIPIDEMIA - HOLD STATIN AT THIS TIME ESOPHAGEAL REFLUX - HOLD PPI THERAPY FOR NOW STARTED PHYSICAL THERAPY DUE TO HER WEAKNESS. - SHE IS UNABLE TO BE TRANSFERRED TO INPT REHAB DUE TO HER WEAKNESS, AT T HIS POINT, I AM NOT SURE SHE WILL BE ABLE TO GO DOWN TO IRF, WE MAY NEED TO CONSIDER A FDC FOR SHORT TERM REHAB. DEPRESSION -AND ANXIETY - RESTARTED SSRI, INSOMNIA - UNCONTROLLED - STOP XANAX, START ON ATIVAN. Clinical Quality Measures Admission Status Admission Dx HYPONATREMIA ATRIAL FIBRILLATION HYPERTENSION HYPOTHYROIDISM CHRONIC ANXIETY HYPERLIPIDEMIA ESOPHAGEAL REFLUX DVT/VTE Risk/Contraindication: Risk Factor Score Per Nursin RFS Level Per Nursing on Admit: 2=Moderate JUNIOR SELLERS MD Dec 19, 2018 08:22
[2018-12-19] MEDS ORDERED: NS IV 1000 ML 1,000 ML IV SCH ×2 (08:30→09:57)
[2018-12-19] MEDS: LORazepam 0.5 MG (ATIVAN) TABLET PO PRN (08:37)
[2018-12-19] MEDS: NYSTATIN ORAL SUSP 5 ML UDC PO SCH ×4 (08:38→20:10)
[2018-12-19] MEDS: Brinzolamide/Brimonidine Tart (Simbrinza) 1%-0.2% Eye Drops OS SCH ×2 (08:38→20:09)
[2018-12-19] MEDS: meTOprolol SUCCINATE 100 MG (TOPROL XL) TAB PO SCH (08:38)
[2018-12-19] MEDS: LACTOBACILLUS ACIDOPHILUS (PROBIOTIC) CAPSULE PO SCH (08:38)
[2018-12-19] MEDS: ARTIFICAL TEARS 0.4 ML UNIT DOSE (REFRESH PLUS) OU SCH ×4 (08:39→20:09)
[2018-12-19] MEDS: SODIUM CHLORIDE 1 GM TAB (NON-FORMULARY) PO SCH ×2 (08:39→20:18)
--- NOTE | 2018-12-19 08:41 | Diagnostic Imaging Report ---
PROCEDURE: CT chest, abdomen, and pelvis without contrast. TECHNIQUE: Multiple contiguous axial images were obtained through the chest, abdomen, and pelvis without the use of intravenous contrast. Auto Exposure Controls were utilized during the CT exam to meet ALARA standards for radiation dose reduction. INDICATION: History of renal cancer. Dyspnea. COMPARISON: CT chest from 12/17/[address] abdomen from 03/18/2017 FINDINGS: CT CHEST: No endoluminal nodule within the trachea. Improving but persistent multifocal groundglass opacities and consolidations involving all 5 lobes. Some of the consolidations in the posterior right lower lobe are likely due to relaxation atelectasis. Scattered calcified granulomas are stable. Moderate size right pleural effusion is stable in size and appears simple in nature. Left pleural effusion has near completely resolved. No supraclavicular or axillary lymphadenopathy. Mildly enlarged lower paratracheal lymph node is stable measuring approximately 1.3 cm. A few additional smaller mediastinal lymph nodes persist but have decreased in size since prior CT chest. No new or enlarging mediastinal, hilar or juxtaphrenic lymph nodes. Unchanged cardiomegaly without pericardial effusion. Left PICC has tip terminating within the superior right atrium. No lytic or blastic skeletal lesions within the chest. Prior L1 vertebral augmentation. CT ABDOMEN AND PELVIS: Assessment of the abdominal viscera is suboptimal without IV contrast. Allowing for this, no free intraperitoneal air or fluid. The unenhanced liver has no focal lesion to suggest metastasis. Unenhanced spleen and pancreas are grossly normal. No adrenal mass. Status post left nephrectomy. No soft tissue nodularity within the nephrectomy bed. Right kidney is grossly normal in size and without discrete soft tissue mass by noncontrast imaging. Urinary bladder is decompressed by Mcgee catheter. No bowel obstruction or pericolonic inflammatory changes. The stomach is decompressed, limiting evaluation. Normal caliber abdominal aorta has extensive atherosclerotic plaquing present. No abdominal or pelvic lymphadenopathy. Diffuse osseous demineralization. Diffuse body wall edema. IMPRESSION: CHEST: 1. Improving but persistent multifocal pneumonia and/or pulmonary edema. 2. Near-complete resolution of left pleural effusion. Persistent moderate-sized simple right pleural effusion that may be parapneumonic in nature. 3. No features of intrathoracic metastases. ABDOMEN AND PELVIS: 1. Status post left nephrectomy. No features of local recurrence or metastatic disease in abdomen or pelvis by noncontrast CT. 2. Diffuse body wall edema. Otherwise, no acute process in the abdomen or pelvis. Dictated by: Dictated on workstation # [id number]
[2018-12-19] MEDS: FLUTICASONE NASAL SPRAY (FLONASE) 16 GM BTL NS SCH (08:44)
[2018-12-19] MEDS: SIMETHICONE 80 MG (MYLICON) CHEW PO SCH ×4 (08:44→20:14)
[2018-12-19] MEDS ORDERED: BISACODYL 10 MG SUPP (DULCOLAX) PR NR (08:45)
[2018-12-19] MEDS: APIXABAN 2.5 MG (ELIQUIS) TABLET PO SCH (08:45)
[2018-12-19] MEDS ORDERED: methylPREDNISolone 40 MG/ML (Solu-MEDROL) VIAL IV SCH (09:00)
--- NOTE | 2018-12-19 09:07 | Physical Therapy Progress Note ---
Therapy Progress Note Patient still on hold. Nurse checked with Dr. Bahena and she said she will probably send new PT orders tomorrow. KAJAL HEREDIA PT Dec 19, 2018 09:07
[2018-12-19] MEDS ORDERED: PATIENT MAY USE OWN MEDS, ALL PO SCH (10:00)
--- NOTE | 2018-12-19 10:29 | Cardiology Progress Note ---
Subjective Date Seen by Provider: Dec 19, 2018 Time Seen by Provider: 10:27 Subjective/Events-last exam patient is laying down in bed, feeling better, breathing better, had thoracentesis done. Review of Systems General: No Chills, No Night Sweats, No Fatigue, No Malaise, No Appetite, No Ot her HEENT: No Head Aches, No Visual Changes, No Eye Pain, No Ear Pain, No Dysp hasia, No Sinus Congestion, No Post Nasal Drip, No Sore Throat, No Other Pulmonary: Dyspnea; No Cough, No Pleuritic Chest Pain, No Other Cardiovascular: No: Chest Pain, Palpitations, Orthopnea, Paroxysmal Noc. Dyspnea, Edema, Lt Headedness, Other Focused Exam Lactate Level 12/18/18 08:10: Lactic Acid Level 2.37*H 12/19/18 05:35: Lactic Acid Level 5.72*H 12/19/18 08:00: Lactic Acid Level 7.70*H Lactic Acid Level Laboratory Tests Test 12/19/18 08:00 Lactic Acid Level 7.70 MMOL/L (0.50-2.00) *H Objective-Cardiology Exam Last Set of Vital Signs Vital Signs 12/19/18 12/19/18 12/19/18 12/19/18 12/19/18 02:39 06:00 06:32 07:00 08:00 Temp 96.8 Pulse 82 Resp 17 B/P (MAP) 133/88 (103) Pulse Ox 100 O2 Delivery Nasal Cannula O2 Flow Rate 5.00 FiO2 30 Capillary Refill : I&O Intake and Output 12/19/18 00:00 Intake Total 650 ml Output Total 1575 ml Balance -925 ml Intake Oral 410 ml IV Total 240 ml Output Urine Total 1575 ml # Bowel Movements 2 General: Alert, Oriented X3, Cooperative HEENT: Atraumatic, Other (RIGHT EYE CLOUDY, LEFT EYE CLEAR - PUPIL ROUND AND REACTIVE) Neck: Supple Lungs: Other (DECREASED BREATH SOUNDS THROUGHOUT WITH CRACKLES) Heart: Normal S1, Normal S2, Other (irreularly irregular) Abdomen: Normal Bowel Sounds, Soft, No Tenderness Extremities: No Clubbing, Other (TRACE EDEMA) Skin: No Rashes, No Breakdown Neuro: Normal Speech, Cranial Nerves 3-12 NL Psych/Mental Status: Mental Status NL, Mood NL Results Lab Laboratory Tests 12/19/18 03:20 A/P-Cardiology Admission Diagnosis Hyponatremia Chronic atrial fibrillation CAD HTN HLP Assessment/Plan Hyponatremia, improving, continue to monitor Shortness of breath, reporting improvement today, Bilateral pleural effusion, status post thoracentesis, better today. Monitored by Dr. Singh Generalized weakness/debility- PT/OT Persistent atrial fibrillation, heart rate is better controlled, we'll continue to monitor closely due to the history of tachybradycardia episode. 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 managed by Dr. Singh Patient had a SPECT perfusion study done in July 2015 at [facility] reported to have normal left ventricular function with ejection fraction 56 percent and normal LV perfusion. 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 Continue to monitor [id number] score is 4, yearly risk of stroke without oral anticoagulation is 4 percent. 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 Continue to monitor. Nonobstructive carotid artery stenosis-most recent carotid duplex done September 2017, continue to monitor. Hypothyroidism- management per Dr. Bahena Anxiety, depression, managed by primary care physician GERMAN Clinical Quality Measures DVT/VTE Risk/Contraindication: Risk Factor Score Per Nursin RFS Level Per Nursing on Admit: 2=Moderate MICHAEL HALL MD Dec 19, 2018 10:28
[2018-12-19] MEDS: POLYETHYLENE GLYCOL 17 GM (MIRALAX) PACK PO SCH (17:39)
[2018-12-19] MEDS: LORazepam 0.5 MG (ATIVAN) TABLET PO SCH (20:09)
[2018-12-19] MEDS: DOCUSATE SODIUM 100 MG (COLACE) CAP PO SCH (20:09)
[2018-12-19] MEDS: PANTOPRAZOLE 40 MG (PROTONIX) TAB PO SCH (20:09)
[2018-12-20] VITALS (16 sets, daily range): BP systolic 92–144; BP diastolic 55–84
[2018-12-20] MEDS: DILTIAZEM 30 MG (CARDIZEM) TAB PO SCH ×4 (00:26→17:04)
[2018-12-20] MEDS: PIPERACILLIN/TAZOBACTAM (BULK) 4.5 GM in NS (IVPB) 100 ML IV SCH ×3 (01:10→17:04)
[2018-12-20] MEDS: RT-ALBUTEROL/IPRATROPIUM 3 ML (DUONEB) VIAL INH SCH ×6 (01:52→21:28)
[2018-12-20] MEDS: DIGOXIN 0.125 MG (LANOXIN) TAB PO SCH (02:25)
[2018-12-20 04:10] LABS: HEMOGLOBIN 10.3 G/DL (11.5-16.0); MEAN PLATELET VOLUME 9.3 FL (7.4-10.4); RED CELL DISTRIBUTION WIDTH 13.8 % (10.0-14.5); WHITE BLOOD COUNT 13.6 10^3/uL (4.3-11.0)
[2018-12-20 04:45] LABS: ALANINE AMINOTRANSFERASE 80 U/L (0-55); ALBUMIN 2.5 GM/DL (3.2-4.5); ALKALINE PHOSPHATASE 66 U/L (40-136); BILIRUBIN,TOTAL 0.7 MG/DL (0.1-1.0); BUN/CREATININE RATIO 42; CALCIUM 7.5 MG/DL (8.5-10.1); CARBON DIOXIDE 23 MMOL/L (21-32); CHLORIDE 100 MMOL/L (98-107); CREATININE SERUM 0.86 MG/DL (0.60-1.30); GFR ESTIMATED > 60; GLUCOSE 167 MG/DL (70-105); MAGNESIUM 2.2 MG/DL (1.8-2.4); PHOSPHORUS 3.9 MG/DL (2.3-4.7); POTASSIUM 4.7 MMOL/L (3.6-5.0); SODIUM 132 MMOL/L (135-145); TOTAL PROTEIN 5.1 GM/DL (6.4-8.2)
[2018-12-20] MEDS: inSUlin ASPART (NovoLOG) 1 UNIT/0.01 ML (CHARGE PER UNIT) SQ SCH (05:18)
[2018-12-20] MEDS: LEVOTHYROXINE 75 MCG (LEVOTHROID) TABLET PO SCH (06:04)
[2018-12-20] MEDS: POLYETHYLENE GLYCOL 17 GM (MIRALAX) PACK PO SCH ×2 (06:04→16:36)
--- NOTE | 2018-12-20 06:49 | Diagnostic Imaging Report ---
INDICATION: Lower respiratory infection. Portable chest at 3:03 AM FINDINGS: Left upper extremity PICC line tip projects over the SVC. There is cardiomegaly. There is some consolidation at the right lung base and some faint infiltrate in the right upper lobe. There may be some left medial basilar atelectasis as well. There is a small right pleural effusion. IMPRESSION: No change in the chest compared to the previous day. Dictated by: Dictated on workstation # [id number]
--- NOTE | 2018-12-20 07:16 | Cardiology Progress Note ---
Subjective Date Seen by Provider: Dec 20, 2018 Time Seen by Provider: 07:15 Subjective/Events-last exam patient is laying down in bed, complaining of fatigue and loss of energy, overall feeling better Review of Systems General: No Chills, No Night Sweats; Fatigue, Malaise; No Appetite, No Other Pulmonary: Dyspnea; No Cough, No Pleuritic Chest Pain, No Other Cardiovascular: No: Chest Pain, Palpitations, Orthopnea, Paroxysmal Noc. Dyspnea, Edema, Lt Headedness, Other Focused Exam Lactate Level 12/18/18 08:10: Lactic Acid Level 2.37*H 12/19/18 05:35: Lactic Acid Level 5.72*H 12/19/18 08:00: Lactic Acid Level 7.70*H Objective-Cardiology Exam Last Set of Vital Signs Vital Signs 12/19/18 12/19/18 12/20/18 02:39 20:02 04:00 Temp 97.9 Pulse 79 Resp 14 B/P (MAP) 124/55 (78) Pulse Ox 98 O2 Delivery Nasal Cannula O2 Flow Rate 3.00 FiO2 30 Capillary Refill : I&O Intake and Output 12/20/18 00:00 Intake Total 2025 ml Output Total 1225 ml Balance 800 ml Intake Oral 400 ml IV Total 1625 ml Output Urine Total 1225 ml General: Alert, Oriented X3, Cooperative HEENT: Atraumatic, Other (RIGHT EYE CLOUDY, LEFT EYE CLEAR - PUPIL ROUND AND REACTIVE) Neck: Supple Lungs: Normal Air Movement, Other (DECREASED BREATH SOUNDS THROUGHOUT WITH CRACKLES) Heart: Normal S1, Normal S2, Other (irreularly irregular) Abdomen: Normal Bowel Sounds, Soft, No Tenderness Extremities: No Clubbing, Other (TRACE EDEMA) Skin: No Rashes, No Breakdown Neuro: Normal Speech, Cranial Nerves 3-12 NL Psych/Mental Status: Mental Status NL, Mood NL Results Lab Laboratory Tests 12/20/18 04:05 A/P-Cardiology Admission Diagnosis Hyponatremia Chronic atrial fibrillation CAD HTN HLP Assessment/Plan Hyponatremia, improving, continue to monitor Shortness of breath, bilateral pleural effusion, status post thoracentesis, reporting improvement. Managed by Dr. Singh. Generalized weakness/debility- PT/OT Persistent atrial fibrillation, heart rate is better controlled, we'll continue to monitor closely due to the history of tachybradycardia episode. 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 managed by Dr. Singh Patient had a SPECT perfusion study done in July 2015 at [facility] cardiology reported to have normal left ventricular function with ejection fraction 56 percent and normal LV perfusion. I will continue monitoring History of tachy/bradycardia episodes with episode of bradycardia noted on Holter monitor in 2014, discussed pacemaker implantation with her insole buffer in the past and decision was made to monitor closely, tolerating current medication well. Continue to monitor [id number] score is 4, yearly risk of stroke without oral anticoagulation is 4 percent. 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 Continue to monitor. Nonobstructive carotid artery stenosis-most recent carotid duplex done September 2017, continue to monitor. Hypothyroidism- management per Dr. Bahena Anxiety, depression, managed by primary care physician GERMAN Clinical Quality Measures DVT/VTE Risk/Contraindication: Risk Factor Score Per Nursin RFS Level Per Nursing on Admit: 2=Moderate MICHAEL HALL MD Dec 20, 2018 07:16
--- NOTE | 2018-12-20 08:34 | Progress Note ---
Subjective Date Seen by a Provider: Dec 20, 2018 Time Seen by a Provider: 08:30 Subjective/Events-last exam PT SEEN - DTR NOT IN ROOM THIS MORNING. BYRON STATES THAT SHE DOES FEEL BETTER AFTER HER THORACENTESIS YESTERDAY. SHE DENIES CHEST PAIN SHE DENIES NAUSEA SHE DOES HAVE A COUGH. Review of Systems General: Fatigue, Malaise HEENT: No Head Aches, No Dysphasia, No Sore Throat Pulmonary: Dyspnea, Cough Cardiovascular: No: Chest Pain Gastrointestinal: No: Nausea, Abdominal Pain Neurological: Weakness; No: Confusion Focused Exam Lactate Level 12/18/18 08:10: Lactic Acid Level 2.37*H 12/19/18 05:35: Lactic Acid Level 5.72*H 12/19/18 08:00: Lactic Acid Level 7.70*H Objective Exam Last Set of Vital Signs Vital Signs Date Time Temp Pulse Resp B/P (MAP) Pulse Ox O2 Delivery O2 Flow Rate FiO2 12/20/18 08:00 80 14 116/57 (76) 96 Nasal Cannula 3.00 12/20/18 08:00 97.4 12/19/18 02:39 30 Capillary Refill : I&O Intake and Output 12/20/18 00:00 Intake Total 2025 ml Output Total 1225 ml Balance 800 ml Intake Oral 400 ml IV Total 1625 ml Output Urine Total 1225 ml General: Alert, Oriented X3, Cooperative HEENT: Atraumatic, Other (RIGHT EYE CLOUDY, LEFT EYE CLEAR - PUPIL ROUND AND REACTIVE) Neck: Supple Lungs: Normal Air Movement, Other (IMPROVED BREATH SOUNDS ON LEFT, STILL DISTANT ON RIGHT) Heart: Normal S1, Normal S2, Other (irreularly irregular) Abdomen: Normal Bowel Sounds, Soft, No Tenderness Extremities: No Clubbing, Other (TRACE EDEMA) Skin: No Rashes, No Breakdown Neuro: Normal Speech, Cranial Nerves 3-12 NL Psych/Mental Status: Mental Status NL, Mood NL Results Lab Laboratory Tests 12/19/18 11:10: Glucometer 267H 12/19/18 16:10: Glucometer 205H 12/19/18 20:26: Glucometer 72 12/19/18 22:19: Glucometer 108 12/20/18 04:05: White Blood Count 13.6H, Red Blood Count 3.36L, Hemoglobin 10.3L, Hematocrit 30L , Mean Corpuscular Volume 90, Mean Corpuscular Hemoglobin 31, Mean Corpuscular Hemoglobin Concent 34, Red Cell Distribution Width 13.8, Platelet Count 329, Mean Platelet Volume 9.3, Sodium Level 132L, Potassium Level 4.7, Chloride Level 100, Carbon Dioxide Level 23, Anion Gap 9, Blood Urea Nitrogen 36H, Creatinine 0.86, Estimat Glomerular Filtration Rate > 60, BUN/Creatinine Ratio 42, Glucose Level 167H, Calcium Level 7.5L, Corrected Calcium 8.7, Phosphorus Level 3.9, Magnesium Level 2.2, Total Bilirubin 0.7, Aspartate Amino Transf (AST/SGOT) 49H, Alanine Aminotransferase (ALT/SGPT) 80H, Alkaline Phosphatase 66, Total Protein 5.1L, Albumin 2.5L Microbiology 12/17/18 Blood Culture - Preliminary, Resulted No growth 12/19/18 Gram Stain - Final, Resulted 12/19/18 Body Fluid Culture - Preliminary, Resulted 12/17/18 MRSA Screen - Final, Complete MRSA not isolated Assessment/Plan Assessment/Plan Assess & Plan/Chief Complaint HYPONATREMIA ATRIAL FIBRILLATION HYPERTENSION HYPOTHYROIDISM CHRONIC ANXIETY HYPERLIPIDEMIA ESOPHAGEAL REFLUX PLEURAL EFFUSION HYPONATREMIA -INITIALLY REPLACED WITH IV FLUIDS, THEN SHE WAS STARTED ON SODIUM CHLORIDE TAB HOWEVER DR. HALL HAS HAD THE SODIUM TAB HELD DUE TO EDEMA. - MONITOR SODIUM LEVEL DAILY - IMPROVED ON LACTATED RINGERS SOLUTION. PLEURAL EFFUSION - WITH NODULARITY ON CT SCAN OF HILUM - AND EVIDENCE OF PNEUMONIC PROCESS - ADVISED PT AND HER DTR OF CT SCAN FINDINGS - DR. LOZADA TO PERFORM THORACENTESIS TOMORROW AND WE WILL MONITOR HER SYMPTOMS. ABNORMAL FULLNESS IN RIGHT UPPER LOBE AND MEDIASTINUM - LIKELY DUE TO THE ASPIRATION TYPE EVENT - WILL BE ABLE TO SEE MORE CLEARLY ON REPEAT CT SCAN DONE AFTER SHE HAS HER THORACENTESIS - WILL NEED TO BE REPEATED EARLY NEXT WEEK. ATRIAL FIBRILLATION -DEFER TO DR. HALL HYPERTENSION - RESUMED HOME REGIMEN HYPOTHYROIDISM - CHECKED THYROID LABS - THEY ARE NORMAL CHRONIC ANXIETY - SUPPORTIVE CARE HYPERLIPIDEMIA - HOLD STATIN AT THIS TIME ESOPHAGEAL REFLUX - HOLD PPI THERAPY FOR NOW STARTED PHYSICAL THERAPY DUE TO HER WEAKNESS. - SHE IS UNABLE TO BE TRANSFERRED TO INPT REHAB DUE TO HER WEAKNESS, AT T HIS POINT, I AM NOT SURE SHE WILL BE ABLE TO GO DOWN TO IRF, WE MAY NEED TO CONSIDER A SENIOR LIVING FOR SHORT TERM REHAB. DEPRESSION -AND ANXIETY - RESTARTED SSRI, INSOMNIA - UNCONTROLLED - STOP XANAX, START ON ATIVAN. Clinical Quality Measures Admission Status Admission Dx HYPONATREMIA ATRIAL FIBRILLATION HYPERTENSION HYPOTHYROIDISM CHRONIC ANXIETY HYPERLIPIDEMIA ESOPHAGEAL REFLUX DVT/VTE Risk/Contraindication: Risk Factor Score Per Nursin RFS Level Per Nursing on Admit: 2=Moderate JUNIOR SELLERS MD Dec 20, 2018 08:34
--- NOTE | 2018-12-20 08:38 | Progress Note ---
Subjective Date Seen by a Provider: Dec 20, 2018 Time Seen by a Provider: 08:30 Subjective/Events-last exam PT REPORTS THAT SHE IS FEELING FATIGUED, BUT BETTER THAN YESTERDAY - SHE STATES THAT SHE IS HAVING UPPER ABDOMINAL FULLNESS, SHE STATES THAT SHE HAS A SENSATION OF BEING "CUT IN HALF" WHEN SHE SITS UPRIGHT IN BED. SHE DENIES DIZZINESS, CHEST PAIN, NAUSEA, HAD A FEW SMALL STOOLS YESTERDAY. Review of Systems General: Fatigue HEENT: No Dysphasia, No Sore Throat Pulmonary: Dyspnea, Cough Cardiovascular: No: Chest Pain, Palpitations Gastrointestinal: Constipation; No: Nausea, Abdominal Pain Genitourinary: Other (DAWKINS) Neurological: Weakness; No: Confusion Focused Exam Lactate Level 12/18/18 08:10: Lactic Acid Level 2.37*H 12/19/18 05:35: Lactic Acid Level 5.72*H 12/19/18 08:00: Lactic Acid Level 7.70*H Objective Exam Last Set of Vital Signs Vital Signs Date Time Temp Pulse Resp B/P (MAP) Pulse Ox O2 Delivery O2 Flow Rate FiO2 12/20/18 08:00 80 14 116/57 (76) 96 Nasal Cannula 3.00 12/20/18 08:00 97.4 12/19/18 02:39 30 Capillary Refill : I&O Intake and Output 12/20/18 00:00 Intake Total 2025 ml Output Total 1225 ml Balance 800 ml Intake Oral 400 ml IV Total 1625 ml Output Urine Total 1225 ml General: Alert, Oriented X3, Cooperative HEENT: Atraumatic, Other (RIGHT EYE CLOUDY, LEFT EYE CLEAR - PUPIL ROUND AND R EACTIVE) Neck: Supple Lungs: Normal Air Movement, Other (DECREASED BREATH SOUNDS THROUGHOUT WITH CRACKLES) Heart: Normal S1, Normal S2, Other (irreularly irregular) Abdomen: Normal Bowel Sounds, Soft, No Tenderness Extremities: No Clubbing, Other (TRACE EDEMA) Skin: No Rashes, No Breakdown Neuro: Normal Speech, Cranial Nerves 3-12 NL Psych/Mental Status: Mental Status NL, Mood NL Results Lab Laboratory Tests 12/19/18 11:10: Glucometer 267H 12/19/18 16:10: Glucometer 205H 12/19/18 20:26: Glucometer 72 12/19/18 22:19: Glucometer 108 12/20/18 04:05: White Blood Count 13.6H, Red Blood Count 3.36L, Hemoglobin 10.3L, Hematocrit 30L , Mean Corpuscular Volume 90, Mean Corpuscular Hemoglobin 31, Mean Corpuscular Hemoglobin Concent 34, Red Cell Distribution Width 13.8, Platelet Count 329, Mean Platelet Volume 9.3, Sodium Level 132L, Potassium Level 4.7, Chloride Level 100, Carbon Dioxide Level 23, Anion Gap 9, Blood Urea Nitrogen 36H, Creatinine 0.86, Estimat Glomerular Filtration Rate > 60, BUN/Creatinine Ratio 42, Glucose Level 167H, Calcium Level 7.5L, Corrected Calcium 8.7, Phosphorus Level 3.9, Magnesium Level 2.2, Total Bilirubin 0.7, Aspartate Amino Transf (AST/SGOT) 49H, Alanine Aminotransferase (ALT/SGPT) 80H, Alkaline Phosphatase 66, Total Protein 5.1L, Albumin 2.5L Microbiology 12/17/18 Blood Culture - Preliminary, Resulted No growth 12/19/18 Gram Stain - Final, Resulted 12/19/18 Body Fluid Culture - Preliminary, Resulted 12/17/18 MRSA Screen - Final, Complete MRSA not isolated Assessment/Plan Assessment/Plan Assess & Plan/Chief Complaint HYPONATREMIA ATRIAL FIBRILLATION HYPERTENSION HYPOTHYROIDISM CHRONIC ANXIETY HYPERLIPIDEMIA ESOPHAGEAL REFLUX PLEURAL EFFUSION PNEUMONIA INSOMNIA DEPRESSION HYPONATREMIA -INITIALLY REPLACED WITH IV FLUIDS, THEN SHE WAS STARTED ON SODIUM CHLORIDE TAB HOWEVER DR. HALL HAS HAD THE SODIUM TAB HELD DUE TO EDEMA. - MONITOR SODIUM LEVEL DAILY - IMPROVED ON LACTATED RINGERS SOLUTION. PLEURAL EFFUSION - WITH NODULARITY ON CT SCAN OF HILUM - AND EVIDENCE OF PNEUMONIC PROCESS - ADVISED PT AND HER DTR OF CT SCAN FINDINGS - DR. LOZADA TO PERFORM THORACENTESIS TOMORROW AND WE WILL MONITOR HER SYMPTOMS. ABNORMAL FULLNESS IN RIGHT UPPER LOBE AND MEDIASTINUM - LIKELY DUE TO THE ASPIRATION TYPE EVENT - WILL BE ABLE TO SEE MORE CLEARLY ON REPEAT CT SCAN DONE AFTER SHE HAS HER THORACENTESIS. ATRIAL FIBRILLATION -UNCONTROLLED - WITH AN ACUTE EPISODE THIS MORNING, SHE RECEIVED IV METOPROLOL, AND THEN WAS TRANSFERRED UP TO ICU STEPDOWN UNIT FOR CLOSE MONITORING DR. HALL ADJUSTS HER MEDICATIONS. - DEFER TO DR. HALL - CONTINUE WITH BLOOD THINNERS - HOLD DOSE TODAY AND TONIGHT WITH ANTICIPATION OF THORACENTESIS TOMORROW. HYPERTENSION - RESUMED HOME REGIMEN HYPERLIPIDEMIA - HOLD STATIN AT THIS TIME DEPRESSION -AND ANXIETY - RESTARTED SSRI, INSOMNIA - UNCONTROLLED - STOP XANAX, START ON ATIVAN. PNEUMONIA -WITH MILD LEUKOCYTOSIS - REPEAT LABS IN MORNING. Clinical Quality Measures Admission Status Admission Dx HYPONATREMIA ATRIAL FIBRILLATION HYPERTENSION HYPOTHYROIDISM CHRONIC ANXIETY HYPERLIPIDEMIA ESOPHAGEAL REFLUX DVT/VTE Risk/Contraindication: Risk Factor Score Per Nursin RFS Level Per Nursing on Admit: 2=Moderate JUNIOR SELLERS MD Dec 20, 2018 08:38
[2018-12-20] MEDS ORDERED: FLEET ENEMA ADULT 1 EA BTL PR NR (08:45)
[2018-12-20] MEDS: SODIUM CHLORIDE 1 GM TAB (NON-FORMULARY) PO SCH ×2 (09:56→21:00)
[2018-12-20] MEDS: NYSTATIN ORAL SUSP 5 ML UDC PO SCH ×4 (09:56→21:00)
[2018-12-20] MEDS: ARTIFICAL TEARS 0.4 ML UNIT DOSE (REFRESH PLUS) OU SCH ×4 (09:57→21:00)
[2018-12-20] MEDS: LACTOBACILLUS ACIDOPHILUS (PROBIOTIC) CAPSULE PO SCH (09:57)
[2018-12-20] MEDS: SIMETHICONE 80 MG (MYLICON) CHEW PO SCH ×4 (09:58→21:00)
[2018-12-20] MEDS: meTOprolol SUCCINATE 100 MG (TOPROL XL) TAB PO SCH (09:58)
[2018-12-20] MEDS: Brinzolamide/Brimonidine Tart (Simbrinza) 1%-0.2% Eye Drops OS SCH ×2 (09:58→21:00)
[2018-12-20] MEDS: FLUTICASONE NASAL SPRAY (FLONASE) 16 GM BTL NS SCH (09:59)
--- NOTE | 2018-12-20 10:51 | Physical Therapy Progress Note ---
Therapy Progress Note Currently no PT orders. Will require orders to resume therapy. RUDDY WILSON PT Dec 20, 2018 10:51
[2018-12-20] MEDS: LORazepam 0.5 MG (ATIVAN) TABLET PO PRN (11:17)
--- NOTE | 2018-12-20 11:42 | Pulmonary Progress Note ---
Subjective Time Seen by a Provider: 12:47 Subjective/Events-last exam Complains of SOB. Sepsis Event Evaluation Height, Weight, BMI Height: 5'1.00" Weight: 115lbs. 9.0oz. 52.184730ns; 20.0 BMI Method:Stated Focused Exam Lactate Level 12/18/18 08:10: Lactic Acid Level 2.37*H 12/19/18 05:35: Lactic Acid Level 5.72*H 12/19/18 08:00: Lactic Acid Level 7.70*H Exam Exam Vital Signs Date Time Temp Pulse Resp B/P (MAP) Pulse Ox O2 Delivery O2 Flow Rate FiO2 12/20/18 11:00 86 15 131/60 (83) 97 Room Air 12/20/18 10:29 99 Room Air 0.00 12/20/18 10:00 90 23 133/76 (95) 95 Room Air 12/20/18 09:00 80 7 118/56 (76) 96 Room Air 12/20/18 08:00 80 14 116/57 (76) 96 Room Air 12/20/18 08:00 Room Air 12/20/18 08:00 97.4 12/20/18 07:38 100 Nasal Cannula 1.00 12/20/18 07:00 77 12/20/18 07:00 88 27 130/66 (87) 97 Nasal Cannula 3.00 12/20/18 04:00 96 High Flow N/C 1.00 12/20/18 04:00 97.8 12/20/18 04:00 79 14 124/55 (78) 98 Nasal Cannula 3.00 12/20/18 01:52 100 Nasal Cannula 1.00 12/20/18 01:00 81 12/20/18 00:00 73 13 112/60 (77) 100 Nasal Cannula 3.00 12/20/18 00:00 94 High Flow N/C 1.00 12/20/18 00:00 98.1 12/19/18 20:02 97.9 90 16 133/70 (91) 97 Nasal Cannula 3.00 12/19/18 20:00 94 High Flow N/C 1.00 12/19/18 19:00 90 12/19/18 18:53 99 Nasal Cannula 2.00 12/19/18 16:00 82 17 114/51 (72) 98 Nasal Cannula 3.00 12/19/18 15:36 97.6 82 16 129/60 (83) 96 Nasal Cannula 3.00 12/19/18 14:40 97 High Flow N/C 3.00 12/19/18 13:00 75 12/19/18 12:17 67 20 98/54 (69) 99 Nasal Cannula 3.00 12/19/18 11:40 97.9 I & O 12/20/18 07:00 Intake Total 875 ml Output Total 1300 ml Balance -425 ml Height & Weight Height: 5'1.00" Weight: 115lbs. 9.0oz. 52.400395de; 20.0 BMI Method:Stated General Appearance: WD/WN, Anxious, Chronically ill, Mild Distress, Thin, Other (fragile) HEENT: Pharynx Normal Neck: Full Range of Motion, Normal Inspection, Non Tender, Supple Respiratory: Chest Non Tender, Lungs Clear, Normal Breath Sounds, No Accessory Muscle Use, No Respiratory Distress Cardiovascular: No Gallop, No Murmur, Irregularly Irregular, Tachycardia Extremity: Normal Capillary Refill, No Pedal Edema Neurologic/Psychiatric: Alert, Oriented x3, No Motor/Sensory Deficits, Normal Mood/Affect Skin: Warm/Dry Lymphatic: No Adenopathy Results Lab Laboratory Tests 12/19/18 03:20 12/20/18 04:05 Assessment/Plan Assessment/Plan Pneumonia with sepsis and bilateral pleural effusions s/p left thoracentesis -Continue Zosyn - villanueva cultures pending -repeat LA -(Echocardiogram done 12/11/18 EF 55-65% Left atrial dilatation 4.2cm, MVP with mod MR, mod-sev TR PA 50-55mmHg, continue to monitor) Metabolic lactic acidosis -repeat LA Bilateral right > Left pleural effusions s/p thoracentesis 800cc of clear yellow fluid drained Pulmonary HTN -monitor for now Afib rvr -cardiology following CRF with hx left nephrectomy secondary to low-grade papillary CA, noninvasive done in July 2015 Hyponatremia -Monitor CAD ZOILA LOZADA DO Dec 20, 2018 11:42
--- NOTE | 2018-12-20 13:49 | Diagnostic Imaging Report ---
PATIENT HISTORY: Post thoracentesis. TECHNIQUE: Frontal view of the chest. COMPARISON: Radiographs from the same day. FINDINGS: There are small bilateral pleural effusions, right greater than left. No pneumothorax is seen bilaterally. The tip of the left PICC line projects over the low SVC. There is mild cardiomegaly. There is mildly improved central vascular congestion. Suture anchors seen in the right humeral head. IMPRESSION: 1. Small bilateral pleural effusions, right greater than left. No pneumothorax. 2. Mildly improved central vascular congestion with stable cardiomegaly. Dictated by: Dictated on workstation # [id number]
[2018-12-20 14:28] LABS: BODY FLUID APPEARENCE CLEAR; BODY FLUID COLOR YELLOW; BODY FLUID RBC COUNT 600 /uL; BODY FLUID SOURCE THORACENTESIS; BODY FLUID WBC TOTAL COUNT 20 /uL
[2018-12-20 14:36] LABS: GLUCOSE,BODY FLUID 196 MG/DL; LDH,BODY FLUID 60 U/L; TOTAL PROTEIN,BODY FLUID < 0.8 G/DL
--- NOTE | 2018-12-20 15:11 | NUR ---
ASSUMED CARE OF PT FROM NAMAN GATES. PT RESTING IN BED W/ EYES CLOSED. VSS. SON AT BEDSIDE. WILL CONT TO MONITOR PT.
[2018-12-20 15:18] LABS: BF OTHER CELLS 47 %; LYMPHOCYTES,BODY FLUID 39 %
[2018-12-20] MEDS: LORazepam 0.5 MG (ATIVAN) TABLET PO SCH (21:00)
[2018-12-20] MEDS: PANTOPRAZOLE 40 MG (PROTONIX) TAB PO SCH (21:00)
[2018-12-20] MEDS: DOCUSATE SODIUM 100 MG (COLACE) CAP PO SCH (21:00)
[2018-12-21] VITALS: BP 118/52
[2018-12-21] MEDS: DILTIAZEM 30 MG (CARDIZEM) TAB PO SCH ×2 (00:22→06:42)
[2018-12-21] MEDS: RT-ALBUTEROL/IPRATROPIUM 3 ML (DUONEB) VIAL INH SCH (02:04)
[2018-12-21 03:42] LABS: HEMOGLOBIN 10.9 G/DL (11.5-16.0); MEAN PLATELET VOLUME 9.1 FL (7.4-10.4); RED CELL DISTRIBUTION WIDTH 14.4 % (10.0-14.5); WHITE BLOOD COUNT 15.8 10^3/uL (4.3-11.0)
[2018-12-21 04:00] VITALS: BP 137/68
[2018-12-21 04:07] LABS: ALANINE AMINOTRANSFERASE 76 U/L (0-55); ALBUMIN 2.4 GM/DL (3.2-4.5); ALKALINE PHOSPHATASE 61 U/L (40-136); BILIRUBIN,TOTAL 0.6 MG/DL (0.1-1.0); BUN/CREATININE RATIO 38; CARBON DIOXIDE 22 MMOL/L (21-32); CHLORIDE 101 MMOL/L (98-107); CREATININE SERUM 0.73 MG/DL (0.60-1.30); GFR ESTIMATED > 60; GLUCOSE 138 MG/DL (70-105); MAGNESIUM 1.4 MG/DL (1.8-2.4); POTASSIUM 4.6 MMOL/L (3.6-5.0); SODIUM 131 MMOL/L (135-145)
[2018-12-21] MEDS ORDERED: MEROPENEM 500 MG in WATER (STERILE) FOR INJECTION 10 ML IV SCH (06:00)
--- NOTE | 2018-12-21 06:05 | Pulmonary Progress Note ---
Subjective Time Seen by a Provider: 06:03 Subjective/Events-last exam Pt feels improved. Sepsis Event Evaluation Height, Weight, BMI Height: 5'1.00" Weight: 115lbs. 9.0oz. 52.825287hb; 20.0 BMI Method:Stated Focused Exam Lactate Level 12/18/18 08:10: Lactic Acid Level 2.37*H 12/19/18 05:35: Lactic Acid Level 5.72*H 12/19/18 08:00: Lactic Acid Level 7.70*H Exam Exam Vital Signs Date Time Temp Pulse Resp B/P (MAP) Pulse Ox O2 Delivery O2 Flow Rate FiO2 12/21/18 04:51 98.1 12/21/18 04:47 Room Air 12/21/18 04:00 102 16 137/68 (91) 94 Room Air 12/21/18 02:04 94 Room Air 12/21/18 01:00 81 12/21/18 00:00 Room Air 12/21/18 00:00 73 14 118/52 (74) 94 Room Air 12/20/18 21:28 94 Room Air 12/20/18 20:00 Room Air 12/20/18 20:00 98.2 89 20 144/69 (94) 95 Room Air 12/20/18 19:00 88 12/20/18 16:02 97.3 81 16 136/84 (101) 97 Room Air 12/20/18 16:00 87 22 136/84 (101) 90 Room Air 12/20/18 15:51 Room Air 12/20/18 15:16 69 97 12/20/18 15:13 97 Room Air 12/20/18 15:00 69 14 116/76 (89) 96 Room Air 12/20/18 14:00 73 19 124/62 (82) 95 Room Air 12/20/18 13:00 92 19 121/65 (83) 96 Room Air 12/20/18 13:00 107 12/20/18 12:00 93 13 119/63 (81) 94 Room Air 12/20/18 12:00 Room Air 12/20/18 11:56 98.5 85 16 92/61 (71) 99 Room Air 12/20/18 11:00 86 15 131/60 (83) 97 Room Air 12/20/18 10:29 99 Room Air 0.00 12/20/18 10:00 90 23 133/76 (95) 95 Room Air 12/20/18 09:00 80 7 118/56 (76) 96 Room Air 12/20/18 08:00 80 14 116/57 (76) 96 Room Air 12/20/18 08:00 Room Air 12/20/18 08:00 97.4 12/20/18 07:38 100 Nasal Cannula 1.00 12/20/18 07:00 77 12/20/18 07:00 88 27 130/66 (87) 97 Nasal Cannula 3.00 I & O 12/21/18 07:00 Intake Total 585 ml Output Total 550 ml Balance 35 ml Height & Weight Height: 5'1.00" Weight: 115lbs. 9.0oz. 52.532485fv; 20.0 BMI Method:Stated General Appearance: No Apparent Distress, WD/WN, Anxious, Chronically ill, Thin, Other (fragile) HEENT: Pharynx Normal Neck: Full Range of Motion, Normal Inspection, Non Tender, Supple Respiratory: Chest Non Tender, Lungs Clear, Normal Breath Sounds, No Accessory Muscle Use, No Respiratory Distress Cardiovascular: No Gallop, No Murmur, Irregularly Irregular, Tachycardia Extremity: Normal Capillary Refill, No Pedal Edema Neurologic/Psychiatric: Alert, Oriented x3, No Motor/Sensory Deficits, Normal Mood/Affect Skin: Warm/Dry Lymphatic: No Adenopathy Results Lab Laboratory Tests 12/20/18 04:05 12/21/18 03:33 Assessment/Plan Assessment/Plan Pneumonia with sepsis and bilateral pleural effusions s/p left thoracentesis - Zosyn - auto stopped yesterday. -Pt has persistent leukocytosis. Cultures are negative. I am going to add Merrem and flagyl for now and also check stool cultures - villanueva cultures negative thus far -(Echocardiogram done 12/11/18 EF 55-65% Left atrial dilatation 4.2cm, MVP with mod MR, mod-sev TR PA 50-55mmHg, continue to monitor) Diarrhea - from enema yesterday most likely -Will check stool cultures secondary to persistent leukocytosis Metabolic lactic acidosis Bilateral right > Left pleural effusions s/p thoracentesis bilaterally -- transudative pleural effusions -S/p bilateral thoracentsis -Cytology is pending Pulmonary HTN -monitor for now Afib -cardiology following CRF with hx left nephrectomy secondary to low-grade papillary CA, noninvasive done in July 2015 Hyponatremia -Monitor CAD ZOILA LOZADA DO Dec 21, 2018 06:04
[2018-12-21] MEDS ORDERED: MEROPENEM 500 MG VIAL (MERREM) IV ONE (06:30)
[2018-12-21] MEDS ORDERED: metroNIDAZOLE 500MG/100ML IVPB 100 ML IV SCH (06:39)
[2018-12-21] MEDS: LEVOTHYROXINE 75 MCG (LEVOTHROID) TABLET PO SCH (06:41)
--- NOTE | 2018-12-21 06:59 | Cardiology Progress Note ---
Subjective Date Seen by Provider: Dec 21, 2018 Time Seen by Provider: 06:58 Subjective/Events-last exam patient is laying down in bed, had mild shortness of breath and cough, mild diarrhea. Overall improving slowly Review of Systems General: No Chills, No Night Sweats; Fatigue, Malaise; No Appetite, No Other HEENT: No Head Aches, No Visual Changes, No Eye Pain, No Ear Pain, No Dysphasia, No Sinus Congestion, No Post Nasal Drip, No Sore Throat, No Other Pulmonary: Dyspnea, Cough; No Pleuritic Chest Pain, No Other Cardiovascular: Edema; No: Chest Pain, Palpitations, Orthopnea, Paroxysmal Noc. Dyspnea, Lt Headedness, Other Focused Exam Lactate Level 12/18/18 08:10: Lactic Acid Level 2.37*H 12/19/18 05:35: Lactic Acid Level 5.72*H 12/19/18 08:00: Lactic Acid Level 7.70*H Objective-Cardiology Exam Last Set of Vital Signs Vital Signs 12/19/18 12/20/18 12/21/18 12/21/18 12/21/18 02:39 10:29 04:00 04:47 04:51 Temp 98.1 Pulse 102 Resp 16 B/P (MAP) 137/68 (91) Pulse Ox 94 O2 Delivery Room Air O2 Flow Rate 0.00 FiO2 30 Capillary Refill : I&O Intake and Output 12/21/18 00:00 Intake Total 585 ml Output Total 950 ml Balance -365 ml Intake Oral 465 ml IV Total 120 ml Output Urine Total 950 ml # Bowel Movements 2 General: Alert, Oriented X3, Cooperative HEENT: Atraumatic, Other (RIGHT EYE CLOUDY, LEFT EYE CLEAR - PUPIL ROUND AND REACTIVE) Neck: Supple Lungs: Normal Air Movement, Other (DECREASED BREATH SOUNDS THROUGHOUT WITH CRACKLES) Heart: Normal S1, Normal S2, Other (irreularly irregular) Abdomen: Normal Bowel Sounds, Soft, No Tenderness Extremities: No Clubbing, Other (mild edema) Skin: No Rashes, No Breakdown Neuro: Normal Speech, Cranial Nerves 3-12 NL Psych/Mental Status: Mental Status NL, Mood NL Results Lab Laboratory Tests 12/21/18 03:33 A/P-Cardiology Admission Diagnosis Hyponatremia Chronic atrial fibrillation CAD HTN HLP Assessment/Plan Hyponatremia, improving, continue to monitor Hypomagnesemia, replace and monitor Shortness of breath, bilateral pleural effusion, status post thoracentesis, receiving antibiotics. Continue to monitor Generalized weakness/debility- PT/OT Persistent atrial fibrillation, heart rate is better controlled, we'll continue to monitor closely due to the history of tachybradycardia episode. 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 managed by Dr. Singh Patient had a SPECT perfusion study done in July 2015 at [facility] reported to have normal left ventricular function with ejection fraction 56 percent and normal LV perfusion. I will continue monitoring History of tachy/bradycardia episodes with episode of bradycardia noted on Holter monitor in 2014, discussed pacemaker implantation with her leaf tinner in the past and decision was made to monitor closely, tolerating current medication well. Continue to monitor [id number] score is 4, yearly risk of stroke without oral anticoagulation is 4 percent. 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 Continue to monitor. Nonobstructive carotid artery stenosis-most recent carotid duplex done September 2017, continue to monitor. Hypothyroidism- management per Dr. Bahena Anxiety, depression, managed by primary care physician GERMAN Clinical Quality Measures DVT/VTE Risk/Contraindication: Risk Factor Score Per Nursin RFS Level Per Nursing on Admit: 2=Moderate MICHAEL HALL MD Dec 21, 2018 06:59
--- NOTE | 2018-12-21 07:01 | Pulmonary Procedures ---
Pulmonary Procedures Date of Procedure Date of Service: Dec 21, 2018 Procedure: US guided complex right thoracentesis Preop DX: pleural effusion post op DX: Same ([800]cc of yellow fluid obtained) Complications: None After informed consent obtained US was used to localize pleural fluid. Pt has R>L pleural effusions. Skin was anesthetized at approximately the 10th ICS posterior axillary line. Thoracentesis needle was advanced through the 10th ICS posterior axillary line with US guidance. Needle was removed and catheter left in place.800cc of yellow fluid obtained using vacuum bottles. Catheter was then removed. Pt tolerated procedure well. No complications noted. ZOILA LOZADA DO Dec 21, 2018 07:01
[2018-12-21] MEDS: MAGNESIUM 1 GM/100 ML IVPB 100 ML IV SCH ×3 (07:57→10:24)
[2018-12-21] MEDS: NYSTATIN ORAL SUSP 5 ML UDC PO SCH (07:57)
[2018-12-21] MEDS: LACTOBACILLUS ACIDOPHILUS (PROBIOTIC) CAPSULE PO SCH (07:57)
[2018-12-21] MEDS: SODIUM CHLORIDE 1 GM TAB (NON-FORMULARY) PO SCH (07:58)
[2018-12-21] MEDS: ARTIFICAL TEARS 0.4 ML UNIT DOSE (REFRESH PLUS) OU SCH (07:58)
[2018-12-21 08:00] VITALS: BP 134/64
[2018-12-21] MEDS: SIMETHICONE 80 MG (MYLICON) CHEW PO SCH (08:05)
[2018-12-21] MEDS: FLUTICASONE NASAL SPRAY (FLONASE) 16 GM BTL NS SCH (08:16)
[2018-12-21] MEDS: Brinzolamide/Brimonidine Tart (Simbrinza) 1%-0.2% Eye Drops OS SCH (08:19)
[2018-12-21] MEDS: meTOprolol SUCCINATE 100 MG (TOPROL XL) TAB PO SCH (08:25)
--- NOTE | 2018-12-21 08:40 | NUR ---
Called report to KODY Manriquez. Pt to transfer to room 410.
[2018-12-21] MEDS ORDERED: CALCIUM CARB + VIT D 600 MG (CALCARB + D) TAB PO SCH (09:15)
--- NOTE | 2018-12-21 09:16 | Progress Note ---
Subjective Time Seen by a Provider: 10:00 Focused Exam Lactate Level 12/19/18 05:35: Lactic Acid Level 5.72*H 12/19/18 08:00: Lactic Acid Level 7.70*H Objective Exam Last Set of Vital Signs Vital Signs Date Time Temp Pulse Resp B/P (MAP) Pulse Ox O2 Delivery O2 Flow Rate FiO2 12/21/18 08:00 95 12 134/64 (87) 94 Room Air 12/21/18 04:51 98.1 12/20/18 10:29 0.00 12/19/18 02:39 30 Capillary Refill : I&O Intake and Output 12/21/18 00:00 Intake Total 585 ml Output Total 950 ml Balance -365 ml Intake Oral 465 ml IV Total 120 ml Output Urine Total 950 ml # Bowel Movements 2 General: Alert, Oriented X3, Cooperative HEENT: Atraumatic, Other (RIGHT EYE CLOUDY, LEFT EYE CLEAR - PUPIL ROUND AND REACTIVE) Neck: Supple Lungs: Normal Air Movement, Other (DECREASED BREATH SOUNDS THROUGHOUT WITH CRACKLES) Heart: Normal S1, Normal S2, Other (irreularly irregular) Abdomen: Normal Bowel Sounds, Soft, No Tenderness Extremities: No Clubbing, Other (mild edema) Skin: No Rashes, No Breakdown Neuro: Normal Speech, Cranial Nerves 3-12 NL Psych/Mental Status: Mental Status NL, Mood NL Results Lab Laboratory Tests 12/20/18 13:05: Body Fluid Source THORACENTESIS, Body Fluid Color YELLOW, Body Fluid Appearance CLEAR, Body Fluid pH 7.0, Body Fluid WBC 20, Body Fluid RBC 600, Body Fluid Polynuclear WBCs 7, Body Fluid Mononuclear WBCs 7, Body Fluid Lymphocytes 39, Body Fluid Other Cells 47, Body Fluid Glucose 196, Body Fluid Total Protein < 0.8, Body Fluid Lactate Dehydrogenase 60 12/21/18 03:33: White Blood Count 15.8H, Red Blood Count 3.60L, Hemoglobin 10.9L, Hematocrit 33L , Mean Corpuscular Volume 91, Mean Corpuscular Hemoglobin 30, Mean Corpuscular Hemoglobin Concent 33, Red Cell Distribution Width 14.4, Platelet Count 347, Mean Platelet Volume 9.1, Sodium Level 131L, Potassium Level 4.6, Chloride Level 101, Carbon Dioxide Level 22, Anion Gap 8, Blood Urea Nitrogen 28H, Creatinine 0.73, Estimat Glomerular Filtration Rate > 60, BUN/Creatinine Ratio 38, Glucose Level 138H, Calcium Level 7.0L, Corrected Calcium 8.3L, Phosphorus Level 3.0, Magnesium Level 1.4L, Total Bilirubin 0.6, Aspartate Amino Transf (AST/SGOT) 33, Alanine Aminotransferase (ALT/SGPT) 76H, Alkaline Phosphatase 61, Total Protein 5.0L, Albumin 2.4L Microbiology 12/17/18 Blood Culture - Preliminary, Resulted No growth 12/20/18 Gram Stain - Final, Resulted 12/20/18 Body Fluid Culture, Resulted Pending 12/17/18 MRSA Screen - Final, Complete MRSA not isolated Assessment/Plan Assessment/Plan Assess & Plan/Chief Complaint HYPONATREMIA ATRIAL FIBRILLATION HYPERTENSION HYPOTHYROIDISM CHRONIC ANXIETY HYPERLIPIDEMIA ESOPHAGEAL REFLUX PLEURAL EFFUSION PNEUMONIA INSOMNIA DEPRESSION HYPONATREMIA -INITIALLY REPLACED WITH IV FLUIDS, THEN SHE WAS STARTED ON SODIUM CHLORIDE TAB HOWEVER DR. HALL HAS HAD THE SODIUM TAB HELD DUE TO EDEMA. - MONITOR SODIUM LEVEL DAILY - IMPROVED ON LACTATED RINGERS SOLUTION. PLEURAL EFFUSION - WITH NODULARITY ON CT SCAN OF HILUM - AND EVIDENCE OF PNEUMONIC PROCESS - ADVISED PT AND HER DTR OF CT SCAN FINDINGS - DR. LOZADA TO PERFORM THORACENTESIS TOMORROW AND WE WILL MONITOR HER SYMPTOMS. ABNORMAL FULLNESS IN RIGHT UPPER LOBE AND MEDIASTINUM - LIKELY DUE TO THE ASPIRATION TYPE EVENT - WILL BE ABLE TO SEE MORE CLEARLY ON REPEAT CT SCAN DONE AFTER SHE HAS HER THORACENTESIS. ATRIAL FIBRILLATION -UNCONTROLLED - WITH AN ACUTE EPISODE THIS MORNING, SHE RECEIVED IV METOPROLOL, AND THEN WAS TRANSFERRED UP TO ICU STEPDOWN UNIT FOR CLOSE MONITORING DR. HALL ADJUSTS HER MEDICATIONS. - DEFER TO DR. HALL - CONTINUE WITH BLOOD THINNERS - HOLD DOSE TODAY AND TONIGHT WITH ANTICIPATION OF THORACENTESIS TOMORROW. HYPERTENSION - RESUMED HOME REGIMEN HYPOTHYROIDISM - CHECKED THYROID LABS - THEY ARE NORMAL CHRONIC ANXIETY - SUPPORTIVE CARE HYPERLIPIDEMIA - HOLD STATIN AT THIS TIME ESOPHAGEAL REFLUX - HOLD PPI THERAPY FOR NOW STARTED PHYSICAL THERAPY DUE TO HER WEAKNESS - PT TO RESTART THERAPY - SHE WAS TRANSFERRED DOWN TO THE FLOOR TODAY FROM INPT ICU STATUS - WILL DISCHARGE TO SWING BED STATUS. DEPRESSION -AND ANXIETY - RESTARTED SSRI, INSOMNIA - UNCONTROLLED - STOPPED XANAX, STARTED ON ATIVAN. HYPONATREMIA -INITIALLY REPLACED WITH IV FLUIDS, THEN SHE WAS STARTED ON SODIUM CHLORIDE TAB HOWEVER DR. HALL HAS HAD THE SODIUM TAB HELD DUE TO EDEMA. - MONITOR SODIUM LEVEL DAILY - IMPROVED ON LACTATED RINGERS SOLUTION. PLEURAL EFFUSION - WITH NODULARITY ON CT SCAN OF HILUM - AND EVIDENCE OF PNEUMONIC PROCESS - ADVISED PT AND HER DTR OF CT SCAN FINDINGS - DR. LOZADA TO PERFORM THORACENTESIS TOMORROW AND WE WILL MONITOR HER SYMPTOMS. ABNORMAL FULLNESS IN RIGHT UPPER LOBE AND MEDIASTINUM - LIKELY DUE TO THE ASPIRATION TYPE EVENT - WILL BE ABLE TO SEE MORE CLEARLY ON REPEAT CT SCAN DONE AFTER SHE HAS HER THORACENTESIS. ATRIAL FIBRILLATION -DEFER TO DR. HALL - WILL RESTART BLOOD THINNERS STATUS POST THORACENTESIS YESTERDAY. HYPERTENSION - RESUMED HOME REGIMEN HYPOTHYROIDISM - CHECKED THYROID LABS - THEY ARE NORMAL CHRONIC ANXIETY - SUPPORTIVE CARE HYPERLIPIDEMIA - HOLD STATIN AT THIS TIME ESOPHAGEAL REFLUX - HOLD PPI THERAPY FOR NOW STARTED PHYSICAL THERAPY DUE TO HER WEAKNESS. - SHE IS UNABLE TO BE TRANSFERRED TO INPT REHAB DUE TO HER WEAKNESS, AT T HIS POINT, I AM NOT SURE SHE WILL BE ABLE TO GO DOWN TO IRF, WE MAY NEED TO CONSIDER A PENITENTIARY FOR SHORT TERM REHAB. DEPRESSION -AND ANXIETY - RESTARTED SSRI, INSOMNIA - UNCONTROLLED - STOP XANAX, START ON ATIVAN. PNEUMONIA - WITH MILD LEUKOCYTOSIS - STARTED ON MEROPENEM, ZOSYN AND FLAGYL (DUE TO LOOSE STOOLS) Clinical Quality Measures Admission Status Admission Dx HYPONATREMIA ATRIAL FIBRILLATION HYPERTENSION HYPOTHYROIDISM CHRONIC ANXIETY HYPERLIPIDEMIA ESOPHAGEAL REFLUX DVT/VTE Risk/Contraindication: Risk Factor Score Per Nursin RFS Level Per Nursing on Admit: 2=Moderate JUNIOR SELLERS MD Dec 21, 2018 09:16
--- NOTE | 2018-12-21 09:20 | NUR ---
Pt transferred to room 410 by Briana. Personal belongings sent with family member.
--- NOTE | 2018-12-21 10:15 | Occupational Therapy Eval ---
OT Evaluation-General/PLF Medical Diagnosis Admission Date Dec 10, 2018 at 12:35 Medical Diagnosis: A fib; weakness Onset Date: Dec 10, 2018 Therapy Diagnosis Therapy Diagnosis: impaired ALDs and mobility Height/Weight Height (Feet): 5 Height (Inches): 1.00 Weight (Pounds): 109 Weight (Ounces): 9.0 Precautions Precautions/Isolations: Fall Prevention, Standard Precautions, Pressure Ulcer Safety Interventions: Bed Exit Alarm Referral Physician: Josef Referral Reason: Activity Tolerance, Self Care, Evaluation/Treatment, Strengthening/ROM Medical History Pertinent Medical History: Atrial Fib, HTN, Hypothroidism Reviewed History: Yes Social History Home: Single Level Current Living Status: Alone Entry Into Home: Stairs With Railing ADL-Prior Level of Function Therapy Code Descriptions/Definitions Functional Midway Measure: 0=Not Assessed/NA 4=Minimal Assistance 1=Total Assistance 5=Supervision or Setup 2=Maximal Assistance 6=Modified Midway 3=Moderate Assistance 7=Complete Midway Therapy Quality Codes: 6 Independent with activity with or without an assistive device 5 Patient requires set up or clean up by helper. Patient completes activity by themselves 4 Supervision or touching assist (CGA). [place] provide cues , steadying assist 3 The helper provides less than half the effort to complete the activity 2 The helper provides more than half the effort to complete the activity 1 Dependent. The helper does all the effort to complete an activity 7 Patient refused to complete or attempt activity 9 The patient did not perform the activity before the current illness or injury 88 Not attempted due to Medical conditions or safety concerns Functional Abilities and Goals: Independent: Patient completed the activities by him/herself, with or without an assistive device, with no assistance from a helper. Needed Some Help: Patient needed partial assistance from another person to complete activities. Dependent: A helper completed the activities for the patient. Unknown: Not Applicable: Self Care: Independent Functional Cognition: Independent DME/Equipment: Bath Chair, Grab Bars, Shower, Tub/Shower Drive Self: Yes OT Current Status Subjective pt laying in bed upon OT arrival in no apparent distress. pt agreed to OT evaluation session. pt complains of no pain. pt daughter present in room. Pain Numeric Pain Scale: 0-No Pain Mental Status/Objective Patient Orientation: Person, Place, Time, Situation Attachments: Mcgee Catheter Current Glasses/Contacts: Yes Hearing Aids: Yes Dentures/Partials: Yes Hand Dominance: Right Upper Extremity ROM WFL Upper Extremity Coordination finger to nose test WFL opposition WFL Upper Extremity Sensation WFL Upper Extremity Strength 3+5 MMT lillian UE. noted limited activity tolerance. pt required rest breaks throughout MMT. Edema: noted edema in Lillian UE/ LE. pt reports skin is leaking fluids. NSG made awar ADL-Treatment Therapy Code Descriptions/Definitions Functional Midway Measure: 0=Not Assessed/NA 4=Minimal Assistance 1=Total Assistance 5=Supervision or Setup 2=Maximal Assistance 6=Modified Midway 3=Moderate Assistance 7=Complete Midway Therapy Quality Codes: 6 Independent with activity with or without an assistive device 5 Patient requires set up or clean up by helper. Patient completes activity by themselves 4 Supervision or touching assist (CGA). [place] provide cues , steadying assist 3 The helper provides less than half the effort to complete the activity 2 The helper provides more than half the effort to complete the activity 1 Dependent. The helper does all the effort to complete an activity 7 Patient refused to complete or attempt activity 9 The patient did not perform the activity before the current illness or injury 88 Not attempted due to Medical conditions or safety concerns Toileting (FIM): 2 (pt reuqired assist with pulling up/ down brief, pt demo ability to perform hygiene whilestanding for better ROM to increase independnce . ) Transfers (B, C, W/C) (FIM): 4 (CGA for safety. balance with use of RW. ) Toilet/Commode Transfer (FIM): 4 (use of GB and RW. CGA for safety/ balance. pt required skilled tactile cuing to perform task. ) noted limited activity tolerance throughout session. pt transition to PT care while in bathroom. pt education on pureed lip breathing to increase activity tolerance during task. pt demo correctly. Education OT Patient Education: Exercise program, Modified ADL techniques, Progress toward Goal/Update tx plan, Purpose of tx/functional activities Teaching Recipient: Patient, Family Teaching Methods: Demonstration, Discussion Response to Teaching: Verbalize Understanding, Return Demonstration OT Short Term Goals Short Term Goals 1=Demonstrate adherence to instructed precautions during ADL tasks. 2=Patient will verbalize/demonstrate understanding of assistive devices/modifications for ADL. 3=Patient will improve strength/tolerance for activity to enable patient to perform ADL's. OT Retirement Goals Retirement Goals Grooming(FIM): 6 Bathing(FIM): 6 Toileting(FIM): 6 Transfers (B,C,W/C) (FIM): 6 Toilet/Commode Transfer(FIM): 6 Additional Goals: 1-Demonstrate ADL Tasks, 2-Verbalize Understanding, 3- ImproveStrength/Natty 1=Demonstrate adherence to instructed precautions during ADL tasks. 2=Patient will verbalize/demonstrate understanding of assistive devices/modifications for ADL. 3=Patient will improve strength/tolerance for activity to enable patient to perform ADL's. OT Education/Plan Problem List/Assessment Assessment: Decreased Activ Tolerance, Decreased Safety Aware, Decreased UE Strength, Impaired Bed Mobility, Impaired Coordination, Impaired Funct Balance, Impaired I ADL's, Impaired Self-Care Skills pt would benefit from OT services to increase independence with ADLs/ functional transfers. Discharge Recommendations Plan/Recommendations: Continue POC Therapy D/C Recommendations: Half-Way (TCU/NH) Treatment Plan/Plan of Care Treatment,Training & Education: Yes Patient would benefit from OT for education, treatment and training to promote independence in ADL's, mobility, safety and/or upper extremity function for ADL's. Plan of Care: ADL Retraining, Caregiver Training, Concurrent Therapy, Functional Mobility, Group Exercise/Act as Ind, UE Funct Exercise/Act Treatment Duration: Jan 04, 2019 Frequency: 5 times per week Estimated Hrs Per Day: .5 hour per day Agreement: Yes Rehab Potential: Good Time/GCodes Start Time: 09:25 Stop Time: 09:58 Billed Treatment Time EVM 15 minutes ADL 18 minutes, 1 unit KANDICEKENIA OT Dec 21, 2018 10:15
--- NOTE | 2018-12-21 10:24 | Physical Therapy Evaluation ---
PT Evaluation-General Medical Diagnosis Admission Date Dec 10, 2018 at 12:35 Medical Diagnosis: A fib; weakness Onset Date: Dec 10, 2018 Therapy Diagnosis Therapy Diagnosis: generalized weakness/debility Height/Weight Height (Feet): 5 Height (Inches): 1.00 Weight (Pounds): 109 Weight (Ounces): 9.0 Precautions Precautions/Isolations: Fall Prevention, Standard Precautions, Pressure Ulcer Weight Bear Status Right Lower Extremity: Right Partial Weight Bearing Left Lower Extremity: Left Partial Weight Bearing Referral Physician: Josef Reason for Referral: Evaluation/Treatment Medical History Pertinent Medical History: Atrial Fib, HTN, Hypothroidism Current History transfer to 4th floor from ICU due to A-fib Reviewed History: Yes Social History Home: Single Level Current Living Status: Alone Entry Into Home: Stairs With Railing Prior/Core FIM Prior Level of Function Therapy Code Descriptions/Definitions Functional Rogers Measure: 0=Not Assessed/NA 4=Minimal Assistance 1=Total Assistance 5=Supervision or Setup 2=Maximal Assistance 6=Modified Rogers 3=Moderate Assistance 7=Complete Rogers Therapy Quality Codes: 6 Independent with activity with or without an assistive device 5 Patient requires set up or clean up by helper. Patient completes activity by themselves 4 Supervision or touching assist (CGA). [place] provide cues , steadying a ssist 3 The helper provides less than half the effort to complete the activity 2 The helper provides more than half the effort to complete the activity 1 Dependent. The helper does all the effort to complete an activity 7 Patient refused to complete or attempt activity 9 The patient did not perform the activity before the current illness or injury 88 Not attempted due to Medical conditions or safety concerns Functional Abilities and Goals: Independent: Patient completed the activities by him/herself, with or without an assistive device, with no assistance from a helper. Needed Some Help: Patient needed partial assistance from another person to complete activities. Dependent: A helper completed the activities for the patient. Unknown: Not Applicable: Bed Mobility: 6 Transfers (B,C,W/C) (FIM): 6 Gait: 6 Indoor Mobility (Ambulation): Independent Stairs: Independent PT Evaluation-Current Subjective Patient just complete with OT and requests back to bed. Objective Patient Orientation: Person, Time, Situation Problem Solving: Fair Attachments: Mcgee Catheter ROM/Strength ROM Lower Extremities bilateral LE WFL Strength Lower Extremities 3-/5 grossly bilateral LE with noted pitting edema Integumentary/Posture Integumentary pitting edema all extremities Bowel Incontinence: No Bladder Incontinence: Mcgee Cath Posture slightly kyphotic Neuromuscular (Tone, Coordination, Reflexes) grossly intact Sensory Vision: Functional Hearing: Functional Hand Dominance: Right Sensation Right Lower Extremit: Intact Sensation Left Lower Extremity: Intact Transfers Therapy Code Descriptions/Definitions Functional Rogers Measure: 0=Not Assessed/NA 4=Minimal Assistance 1=Total Assistance 5=Supervision or Setup 2=Maximal Assistance 6=Modified Rogers 3=Moderate Assistance 7=Complete Rogers Transfers (B, C, W/C) (FIM): 2 Scootin Rollin Supine to/from Sit: 2 Sit to/from Stand: 3 Gait Mode of Locomotion: Walk Anticipated Mode of Locomotion: Walk Gait (FIM): 1 Distance (FIM): 1=up to 49 ft Distance: 15' Gait Level of Assist: 4 Gait Persons Needed: 11 Gait Assistive Device: FWW Comments/Gait Description patient fatigues with minimal activity and required assistance with all mobility and ADL's Balance Sitting Static: Normal Sitting Dynamic: Normal Standing Static: Fair Standing Dynamic: Fair Assessment/Needs 83 y.o. female, will benefit from skilled PT to address functional strength and mobility to improve current LOF. Patient is severely fatigued and unable to tolerated intensive therapies and will be address with gradual activity. Rehab Potential: Guarded PT Jewish Thought Professor Goals Jewish Thought Professor Goals PT Jewish Thought Professor Goals Time Frame: Jan 05, 2019 Transfers (B,C,W/C) (FIM): 5 Gait (FIM): 2 Gait distance (FIM): 9=848-62 ft Distance: 125' Gait Level of Assist: 5 Gait Assistive Device: FWW PT Plan Problem List Problem List: Activity Tolerance, Functional Strength, Safety, Balance, Gait, Transfer, Bed Mobility Treatment/Plan Treatment Plan: Continue Plan of Care Treatment Plan: Bed Mobility, Education, Functional Activity Natty, Functional Strength, Gait, Safety, Therapeutic Exercise, Transfers Treatment Duration: Jan 05, 2019 Frequency: 6 times per week Estimated Hrs Per Day: .5 hour per day Patient and/or Family Agrees t: Yes Discharge Recommendations Therapy D/C Recommendations: Fci Placement, Fci (TCU/NH) Time/GCodes Time In: 958 Time Out: 1010 Total Billed Treatment Time: 12 Total Billed Treatment 1 visit [facility] 12 min RUDDY WILSON PT Dec 21, 2018 10:24
--- NOTE | 2018-12-21 10:50 | Discharge Summary ---
Diagnosis/Chief Complaint Date of Admission Dec 10, 2018 at 12:35 Date of Discharge 12/21/18 Discharge Date: Dec 21, 2018 Discharge Time: 10:50 Admission Diagnosis Admission Diagnosis HYPONATREMIA ATRIAL FIBRILLATION HYPERTENSION HYPOTHYROIDISM CHRONIC ANXIETY HYPERLIPIDEMIA ESOPHAGEAL REFLUX Discharge Diagnosis HYPONATREMIA ATRIAL FIBRILLATION HYPERTENSION HYPOTHYROIDISM CHRONIC ANXIETY HYPERLIPIDEMIA ESOPHAGEAL REFLUX BILATERAL PLEURAL EFFUSIONS PNEUMONIA Reason Hospital Visit PT IS AN 83 Y/O FEMALE WHO IS WELL KNOWN TO ME FROM CLINIC. SHE PRESENTED TO THE OFFICE WITH COMPLAINT OF PERSISTENTLY FEELING POORLY OVER THE WEEKEND. SHE REPORTS SEVERE FATIGUE AND SLEEPING FOR OVER 20 HOURS A DAY FOR THE PAST FEW DAYS. SHE REPORTS THAT SHE DOES FEEL HER HEART PALPITATING. Discharge Summary Consultations DR. NEVILLE HALL Discharge Physical Examination Allergies: Coded Allergies: Bacitracin Zinc (Verified Allergy, Unknown, 10/06/15) bacitracin (Verified Allergy, Unknown, 10/06/15) benzalkonium chloride (Verified Allergy, Unknown, 10/06/15) gramicidin D (Verified Allergy, Unknown, 10/06/15) hydrocortisone (Verified Allergy, Unknown, 10/06/15) lidocaine (Verified Allergy, Unknown, 10/06/15) meclizine (Verified Allergy, Unknown, 10/06/15) neomycin (Verified Allergy, Unknown, 10/06/15) neomycin sulfate (Verified Allergy, Unknown, 10/06/15) polymyxin B (Verified Allergy, Unknown, 10/06/15) polymyxin B sulfate (Verified Allergy, Unknown, 10/06/15) Vitals & I&Os Vital Signs Date Time Temp Pulse Resp B/P (MAP) Pulse Ox O2 Delivery O2 Flow Rate FiO2 12/21/18 08:00 95 12 134/64 (87) 94 Room Air 12/21/18 04:51 98.1 12/20/18 10:29 0.00 12/19/18 02:39 30 General Appearance: Alert, Oriented X3, Cooperative HEENT: Atraumatic, Other (RIGHT EYE CLOUDY, LEFT EYE CLEAR - PUPIL ROUND AND REACTIVE) Respiratory: Other (IMPROVED AIR MOVEMENT THROUGHOUT WITH DECREASED AT BASES BILATERALLY WITH FAINT PERSISTENT CRACKLES IN UPPER RIGHT LOBE) Cardiovascular: Normal S1, Normal S2, Other (irreularly irregular) Abdominal: Normal Bowel Sounds, Soft, No Tenderness Extremities: No Clubbing, Other (mild edema) Skin: No Rashes, No Breakdown Neuro: Normal Speech, Cranial Nerves 3-12 NL Psych/Mental Status: Mental Status NL, Mood NL Hospital Course Was the Problem List Reviewed?: Yes HYPONATREMIA ATRIAL FIBRILLATION HYPERTENSION HYPOTHYROIDISM CHRONIC ANXIETY HYPERLIPIDEMIA ESOPHAGEAL REFLUX PLEURAL EFFUSION PNEUMONIA INSOMNIA DEPRESSION HYPONATREMIA -INITIALLY REPLACED WITH IV FLUIDS, THEN SHE WAS STARTED ON SODIUM CHLORIDE TAB HOWEVER DR. HALL HAS HAD THE SODIUM TAB HELD DUE TO EDEMA. - MONITOR SODIUM LEVEL DAILY - IMPROVED ON LACTATED RINGERS SOLUTION. PLEURAL EFFUSION - WITH NODULARITY ON CT SCAN OF HILUM - AND EVIDENCE OF PNEUMONIC PROCESS - ADVISED PT AND HER DTR OF CT SCAN FINDINGS - DR. LOZADA TO PERFORM THORACENTESIS TOMORROW AND WE WILL MONITOR HER SYMPTOMS. ABNORMAL FULLNESS IN RIGHT UPPER LOBE AND MEDIASTINUM - LIKELY DUE TO THE ASPIRATION TYPE EVENT - WILL BE ABLE TO SEE MORE CLEARLY ON REPEAT CT SCAN DONE AFTER SHE HAS HER THORACENTESIS. ATRIAL FIBRILLATION -UNCONTROLLED - WITH AN ACUTE EPISODE THIS MORNING, SHE RECEIVED IV METOPROLOL, AND THEN WAS TRANSFERRED UP TO ICU STEPDOWN UNIT FOR CLOSE MONITORING DR. HALL ADJUSTS HER MEDICATIONS. - DEFER TO DR. HALL - CONTINUE WITH BLOOD THINNERS - HOLD DOSE TODAY AND TONIGHT WITH ANTICIPATION OF THORACENTESIS TOMORROW. HYPERTENSION - RESUMED HOME REGIMEN HYPOTHYROIDISM - CHECKED THYROID LABS - THEY ARE NORMAL CHRONIC ANXIETY - SUPPORTIVE CARE HYPERLIPIDEMIA - HOLD STATIN AT THIS TIME ESOPHAGEAL REFLUX - HOLD PPI THERAPY FOR NOW STARTED PHYSICAL THERAPY DUE TO HER WEAKNESS - PT TO RESTART THERAPY - SHE WAS TRANSFERRED DOWN TO THE FLOOR TODAY FROM INPT ICU STATUS - WILL DISCHARGE TO SWING BED STATUS. DEPRESSION -AND ANXIETY - RESTARTED SSRI, INSOMNIA - UNCONTROLLED - STOPPED XANAX, STARTED ON ATIVAN. HYPONATREMIA -INITIALLY REPLACED WITH IV FLUIDS, THEN SHE WAS STARTED ON SODIUM CHLORIDE TAB HOWEVER DR. HALL HAS HAD THE SODIUM TAB HELD DUE TO EDEMA. - MONITOR SODIUM LEVEL DAILY - IMPROVED ON LACTATED RINGERS SOLUTION. PLEURAL EFFUSION - WITH NODULARITY ON CT SCAN OF HILUM - AND EVIDENCE OF PNEUMONIC PROCESS - ADVISED PT AND HER DTR OF CT SCAN FINDINGS - DR. LOZADA TO PERFORM THORACENTESIS TOMORROW AND WE WILL MONITOR HER SYMPTOMS. ABNORMAL FULLNESS IN RIGHT UPPER LOBE AND MEDIASTINUM - LIKELY DUE TO THE ASPIRATION TYPE EVENT - WILL BE ABLE TO SEE MORE CLEARLY ON REPEAT CT SCAN DONE AFTER SHE HAS HER THORACENTESIS. ATRIAL FIBRILLATION -DEFER TO DR. HALL - WILL RESTART BLOOD THINNERS STATUS POST THORACENTESIS YESTERDAY. HYPERTENSION - RESUMED HOME REGIMEN HYPOTHYROIDISM - CHECKED THYROID LABS - THEY ARE NORMAL CHRONIC ANXIETY - SUPPORTIVE CARE HYPERLIPIDEMIA - HOLD STATIN AT THIS TIME ESOPHAGEAL REFLUX - HOLD PPI THERAPY FOR NOW STARTED PHYSICAL THERAPY DUE TO HER WEAKNESS. - SHE IS UNABLE TO BE TRANSFERRED TO INPT REHAB DUE TO HER WEAKNESS, AT T HIS POINT, I AM NOT SURE SHE WILL BE ABLE TO GO DOWN TO IRF, WE MAY NEED TO CONSIDER A [facility] FOR SHORT TERM REHAB. DEPRESSION -AND ANXIETY - RESTARTED SSRI, INSOMNIA - UNCONTROLLED - STOP XANAX, START ON ATIVAN. PNEUMONIA - WITH MILD LEUKOCYTOSIS - STARTED ON MEROPENEM, ZOSYN AND FLAGYL (DUE TO LOOSE STOOLS) Pending Labs Laboratory Tests 12/21/18 03:33: White Blood Count 15.8, Red Blood Count 3.60, Hemoglobin 10.9, Hematocrit 33, Mean Corpuscular Volume 91, Mean Corpuscular Hemoglobin 30, Mean Corpuscular Hemoglobin Concent 33, Red Cell Distribution Width 14.4, Platelet Count 347, Mean Platelet Volume 9.1, Sodium Level 131, Potassium Level 4.6, Chloride Level 101, Carbon Dioxide Level 22, Anion Gap 8, Blood Urea Nitrogen 28, Creatinine 0.73, Estimat Glomerular Filtration Rate > 60, BUN/Creatinine Ratio 38, Glucose Level 138, Calcium Level 7.0, Corrected Calcium 8.3, Phosphorus Level 3.0, Magnesium Level 1.4, Total Bilirubin 0.6, Aspartate Amino Transf (AST/SGOT) 33, Alanine Aminotransferase (ALT/SGPT) 76, Alkaline Phosphatase 61, Total Protein 5.0, Albumin 2.4 Discharge Condition at discharge IMPROVING Instructions to patient/family Please see electronic discharge instructions given to patient. Discharge Medications Reviewed and agree with Discharge Medication list on patient's Discharge Instruction sheet Clinical Quality Measures DVT/VTE Risk/Contraindication: Risk Factor Score Per Nursin RFS Level Per Nursing on Admit: 2=Moderate JUNIOR SELLERS MD Dec 21, 2018 10:50
--- NOTE | 2018-12-21 10:59 | NUR ---
Swing Bed Note: Qualifies for swing bed for continued need of IV abx (Pneumonia) et oxygen monitoring et weaning with continued need for Physical et Occupational therapies.
[2018-12-21] MEDS ORDERED: RT-ALBUTEROL/IPRATROPIUM 3 ML (DUONEB) VIAL ONE (11:19)
[2018-12-21] MEDS ORDERED: POLYETHYLENE GLYCOL 17 GM (MIRALAX) PACK PO SCH (21:00)
--- NOTE | 2018-12-25 13:55 | Physician Query Clarification ---
PQ-Uncertain Diagnosis Admission/Discharge Admission Date: Dec 10, 2018 at 12:35 Discharge Date: Dec 21, 2018 at 11:08 The medical record reflects the following clinical scenario: History/Risk Factors: Pneumonia Bilateral pleural effusion Clinical Findings:Lactic acid 2.30 rising to 7.70 on 12/19. WBC 10.9 Vitals- T 97.7, pulse 114, Resp 26 BP 125/73. Blood cultures-no growth. Treatment:IV Zosyn Question: Is Sepsis a clinically valid diagnosis? Sepsis was documented in the 12/19 progress notes-Dr. Singh with no further documentation in the medical record. Please document a response in Progress Note or Discharge Summary. 1. Yes, clinically valid, condition resolved. 2. No, condition ruled out. 3. Other, with explanation of clinical findings. 4. Undetermined, no explanation for clinical findings. PHYSICIAN RESPONSE Diagnosis clinically valid: Yes, Conditon resolved Please remember a lack of response to the above will prompt a phone page by CDI/Coding staff. In responding to this query, please exercise your independent professional judgment. The purpose of this communication is to more accurately reflect the complexity of your patients condition. The fact that a question is asked does not imply that any particular answer is desired or expected. Thank you for your timely response to this clarification. Requestors name: Aretha Luna [facility] Phone # ext [phone] or [phone] THIS PHYSICIAN QUERY FORM IS A PERMANENT PART OF THE MEDICAL RECORD ARETHA LUNA Dec 25, 2018 13:55 JUNIOR SELLERS MD Dec 27, 2018 19:25
== END 2018-12-21 11:08 | disposition swing bed (61) | DRG 640 ==
LOC: 4TH 12:35 → ICU 12-14 08:21 → 4TH 12-21 08:38
PROVIDERS: ADMIT Family Medicine; ATTEND Family Medicine
PROC: 0W9B3ZX Drainage of Left Pleural Cavity, Percutaneous Approach, Diagnostic (ICD-10-PCS; principal; 2018-12-19)
PROC: 0W993ZX Drainage of Right Pleural Cavity, Percutaneous Approach, Diagnostic (ICD-10-PCS; 2018-12-20)
DX: E87.1 Hypo-osmolality and hyponatremia (principal); I48.1 Persistent atrial fibrillation; A41.9 Sepsis, unspecified organism; J18.9 Pneumonia, unspecified organism; J90 Pleural effusion, not elsewhere classified; E87.2 Acidosis; I12.9 Hypertensive chronic kidney disease with stage 1 through stage 4 chronic kidney disease, or unspecified chronic kidney disease; N18.9 Chronic kidney disease, unspecified; Z66 Do not resuscitate; E03.9 Hypothyroidism, unspecified; F41.9 Anxiety disorder, unspecified; E78.00 Pure hypercholesterolemia, unspecified; K21.9 Gastro-esophageal reflux disease without esophagitis; R53.1 Weakness; I25.10 Atherosclerotic heart disease of native coronary artery without angina pectoris; I27.20 Pulmonary hypertension, unspecified; G62.9 Polyneuropathy, unspecified; F32.9 Major depressive disorder, single episode, unspecified; G47.00 Insomnia, unspecified; R63.0 Anorexia; R19.7 Diarrhea, unspecified; M81.0 Age-related osteoporosis without current pathological fracture; E87.6 Hypokalemia; E83.42 Hypomagnesemia; I08.1 Rheumatic disorders of both mitral and tricuspid valves; I65.29 Occlusion and stenosis of unspecified carotid artery; Z90.5 Acquired absence of kidney; Z90.49 Acquired absence of other specified parts of digestive tract; Z85.528 Personal history of other malignant neoplasm of kidney; Z79.01 Long term (current) use of anticoagulants
CPT/HCPCS: 36415; 36569; 36600; 71045; 71046; 71250; 74176; 76937; 80048; 80053; 80061; 80162; 81000; 82340; 82805; 82945; 82962; 83605; 83615; 83735; 83880; 83986; 84100; 84155; 84157; 84439; 84443; 85007; 85027; 87040; 87070; 87081; 87205; 88112; 88305; 89051; 93005; 93306; 94640; 94660; 94664

== ENCOUNTER 2018-12-21 10:55 | Inpatient (IN) | payer MEDICARE ==
[~2018-12-21] VITALS: Ht 154.9 cm; Wt 49.4 kg
[~2018-12-21 10:55] MED LIST changes: +ACET325T38 PO; +ALBU90AE INH; +ALPH1TAB8 PO; +ALPR0.254 PO; +AMLO5TAB9 PO; +ATOR10TA66 PO; +BRIN8DRO OS; +BUDE10.2 IH; +CARB10DR OU; +CEPH500C PO; +CETI10TA20 PO; +CHOL10007 PO; +CYCL5TAB PO; +DEXT1TAB3 PO; +DICL100G31 TOP; +DIGO125T18 PO; +DOCU-143 PO; +GUAI120013 PO; +L.AC1CAP6 PO; +LEVO75TA6 PO; +LOPE-134 PO; +LOTE5GEL OD; +METO-370 PO; +MULT1TAB69 PO; +OMG1KC PO; +PANT40TA3 PO; +POLY17PO6 PO; +SIME125C PO; +SOLI10TA2 PO; +SPIR25TA5 PO; +SUCR1ORA5 PO
[2018-12-21] MEDS ORDERED: ACETAMINOPHEN 325 MG TABLET PO PRN (11:15)
[2018-12-21] MEDS ORDERED: SUCRALFATE 1 GM (CARAFATE) TAB PO PRN (11:15)
[2018-12-21] MEDS ORDERED: RT-ALBUTEROL/IPRATROPIUM 3 ML (DUONEB) VIAL INH PRN (11:15)
[2018-12-21] MEDS ORDERED: PATIENT MAY USE OWN MEDS, ALL MC SCH (11:15)
[2018-12-21] MEDS ORDERED: MAGNESIUM 1 GM/100 ML IVPB 100 ML IV SCH (11:15)
[2018-12-21] MEDS ORDERED: CATHETER FLUSH 10 ML SYR IV PRN (11:15)
[2018-12-21] MEDS ORDERED: LOPERAMIDE 2 MG (IMODIUM) TABLET PO PRN (11:15)
[2018-12-21 12:58] VITALS: BP 124/66
[2018-12-21] MEDS: MEROPENEM 500 MG in WATER (STERILE) FOR INJECTION 10 ML IV SCH ×3 (13:06→23:05)
[2018-12-21] MEDS: ARTIFICAL TEARS 0.4 ML UNIT DOSE (REFRESH PLUS) OU SCH ×3 (13:07→20:46)
[2018-12-21] MEDS: SIMETHICONE 80 MG (MYLICON) CHEW PO SCH ×3 (13:09→20:47)
[2018-12-21] MEDS: NYSTATIN ORAL SUSP 5 ML UDC PO SCH ×3 (13:09→20:48)
[2018-12-21] MEDS: metroNIDAZOLE 500MG/100ML IVPB 100 ML IV SCH ×2 (13:10→21:45)
[2018-12-21] MEDS: DILTIAZEM 30 MG (CARDIZEM) TAB PO SCH ×3 (13:15→23:05)
[2018-12-21 13:18] VITALS: BP 152/70
--- NOTE | 2018-12-21 13:41 | Physical Therapy Evaluation ---
PT Evaluation-General Medical Diagnosis Admission Date Dec 21, 2018 at 11:41 Medical Diagnosis: A-fib/weakness Onset Date: Dec 10, 2018 Therapy Diagnosis Therapy Diagnosis: severe weakness/debility Height/Weight Height (Feet): 5 Height (Inches): 1.00 Weight (Pounds): 109 Weight (Ounces): 9.0 Precautions Precautions/Isolations: Fall Prevention, Standard Precautions Weight Bear Status Right Lower Extremity: Right Full Weight Bearing Left Lower Extremity: Left Full Weight Bearing Referral Physician: Josef Reason for Referral: Evaluation/Treatment Medical History Pertinent Medical History: Atrial Fib, HTN, Hypothroidism Current History Transfer to [facility] status Reviewed History: Yes Social History Home: Single Level Current Living Status: Alone Prior/Core FIM Prior Level of Function Therapy Code Descriptions/Definitions Functional [place] Measure: 0=Not Assessed/NA 4=Minimal Assistance 1=Total Assistance 5=Supervision or Setup 2=Maximal Assistance 6=Modified [place] 3=Moderate Assistance 7=Complete [place] Therapy Quality Codes: 6 Independent with activity with or without an assistive device 5 Patient requires set up or clean up by helper. Patient completes activity by themselves 4 Supervision or touching assist (CGA). [place] provide cues , steadying assist 3 The helper provides less than half the effort to complete the activity 2 The helper provides more than half the effort to complete the activity 1 Dependent. The helper does all the effort to complete an activity 7 Patient refused to complete or attempt activity 9 The patient did not perform the activity before the current illness or inj ury 88 Not attempted due to Medical conditions or safety concerns Functional Abilities and Goals: Independent: Patient completed the activities by him/herself, with or without an assistive device, with no assistance from a helper. Needed Some Help: Patient needed partial assistance from another person to complete activities. Dependent: A helper completed the activities for the patient. Unknown: Not Applicable: Bed Mobility: 6 Transfers (B,C,W/C) (FIM): 6 Gait: 6 Stairs: 6 Indoor Mobility (Ambulation): Independent Stairs: Independent Prior Devices Use: None, Walker PT Evaluation-Current Subjective Patient states, "I'm am dying. I have had too big of a day." Does agree to PT. Pain Numeric Pain Scale: 0-No Pain Location: No Pain Reported Objective Patient Orientation: Normal For Age Problem Solving: Fair ROM/Strength ROM Lower Extremities bilateral LE WFL Strenght Lower Extremities 3-/5 grossly bilaterally Integumentary/Posture Integumentary refer to nursing notes (bilateral LE pitting edema 1+) Bowel Incontinence: No Bladder Incontinence: No Posture slightly kyphotic Neuromuscular (Tone, Coordination, Reflexes) grossly intact (extremely debilitated) Sensory Vision: Functional Hearing: Functional Sensation Right Lower Extremit: Intact Sensation Left Lower Extremity: Intact Transfers Therapy Code Descriptions/Definitions Functional [place] Measure: 0=Not Assessed/NA 4=Minimal Assistance 1=Total Assistance 5=Supervision or Setup 2=Maximal Assistance 6=Modified [place] 3=Moderate Assistance 7=Complete [place] Therapy Quality Codes: 6 Independent with activity with or without an assistive device 5 Patient requires set up or clean up by helper. Patient completes activity by themselves 4 Supervision or touching assist (CGA). [place] provide cues , steadying assist 3 The helper provides less than half the effort to complete the activity 2 The helper provides more than half the effort to complete the activity 1 Dependent. The helper does all the effort to complete an activity 7 Patient refused to complete or attempt activity 9 The patient did not perform the activity before the current illness or injury 88 Not attempted due to Medical conditions or safety concerns Transfers (B, C, W/C) (FIM): 2 Scootin Rollin Roll Left to Right (QC): 3 Supine to/from Sit: 2 Sit to/from Stand: 3 Sit to Lying (QC): 3 Lying to Sitting/Side of Bed(Q: 3 Sit to Stand (QC): 3 Chair/Dpe-ql-Buicq Xfer(QC): 3 Gait Does the Patient Walk?: Yes Mode of Locomotion: Walk Anticipated Mode of Locomotion: Walk Gait (FIM): 1 Distance (FIM): 1=up to 49 ft Walk 10 feet (QC): 88 Walk 50 ft with 2 Turns(QC): 88 Walk 150 ft (QC): 88 Walking 10ft/uneven surface-QC: 88 Distance: 5' Gait Level of Assist: 4 Gait Persons Needed: 1 Gait Assistive Device: FWW Comments/Gait Description shuffle gait sequence/fatigues very quickly with minimal activity Balance Sitting Static: Fair Sitting Dynamic: Fair Standing Static: Fair Standing Dynamic: Fair Treatment bilateral LE AAROM in supine 10 reps each AP, HS, SLF, Abd/Add Assessment/Needs 83 y.o. severely debilitated female, will benefit from skilled PT to address functional strength and mobility to improve current LOF. Patient is limited due to weakness and inability to tolerate intensive therapies. Rehab Potential: Guarded PT Long-Term Goals Cottonseed Meat Presser Goals PT Cottonseed Meat Presser Goals Time Frame: Jan 05, 2019 Transfers (B,C,W/C) (FIM): 5 Sit to Lying (QC): 5 Lying-Sitting on Side/Bed(QC): 5 Sit to Stand (QC): 5 Rollin Roll Left to Right (QC): 5 Chair/Asx-ii-Favru Xfer(QC): 5 Car Transfer (QC): 5 Does the Patient Walk: Yes Gait (FIM): 5 Gait distance (FIM): 3=150 ft Distance: 150' Walk 10 feet (QC): 5 Walk 10ft-Uneven Surface(QC): 5 Walk 50ft with 2 Turns (QC): 5 Walk 150 ft (QC): 5 Gait Level of Assist: 5 Gait Assistive Device: FWW PT Plan Problem List Problem List: Activity Tolerance, Functional Strength, Safety, Balance, Gait, Transfer, Bed Mobility Treatment/Plan Treatment Plan: Continue Plan of Care Treatment Plan: Bed Mobility, Education, Functional Activity Natty, Functional Strength, Gait, Safety, Therapeutic Exercise, Transfers Treatment Duration: Jan 05, 2019 Frequency: 6 times per week Estimated Hrs Per Day: .25 hour per day Patient and/or Family Agrees t: Yes Discharge Recommendations Therapy D/C Recommendations: Care Home Placement, Care Home (TCU/NH) Time/GCodes Time In: 1240 Time Out: 1303 Total Billed Treatment Time: 23 Total Billed Treatment 1 visit EVLowC 8 min EX 15 min RUDDY WILSON PT Dec 21, 2018 13:41
--- NOTE | 2018-12-21 14:02 | Occupational Therapy Eval ---
OT Evaluation-General/PLF Medical Diagnosis Admission Date Dec 21, 2018 at 11:41 Medical Diagnosis: A-fib/weakness Onset Date: Dec 10, 2018 Therapy Diagnosis Therapy Diagnosis: impaired ADLs and mobility Height/Weight Height (Feet): 5 Height (Inches): 1.00 Weight (Pounds): 109 Weight (Ounces): 9.0 Precautions Precautions/Isolations: Fall Prevention, Standard Precautions Weight Bear Status Weight Bearing Restriction: Weight Bearing/Tolerated Referral Physician: Josef Referral Reason: Self Care, Evaluation/Treatment, Strengthening/ROM Medical History Pertinent Medical History: Atrial Fib, HTN, Hypothroidism Current History Transfer to [facility] status to continued medial and therapy services. Reviewed History: Yes Social History Home: Single Level Current Living Status: Alone Entry Into Home: Stairs With Railing Steps Into Home: 4 ADL-Prior Level of Function Therapy Code Descriptions/Definitions Functional [place] Measure: 0=Not Assessed/NA 4=Minimal Assistance 1=Total Assistance 5=Supervision or Setup 2=Maximal Assistance 6=Modified [place] 3=Moderate Assistance 7=Complete [place] Therapy Quality Codes: 6 Independent with activity with or without an assistive device 5 Patient requires set up or clean up by helper. Patient completes activity by themselves 4 Supervision or touching assist (CGA). [place] provide cues , steadying assist 3 The helper provides less than half the effort to complete the activity 2 The helper provides more than half the effort to complete the activity 1 Dependent. The helper does all the effort to complete an activity 7 Patient refused to complete or attempt activity 9 The patient did not perform the activity before the current illness or injury 88 Not attempted due to Medical conditions or safety concerns Functional Abilities and Goals: Independent: Patient completed the activities by him/herself, with or without an assistive device, with no assistance from a helper. Needed Some Help: Patient needed partial assistance from another person to complete activities. Dependent: A helper completed the activities for the patient. Unknown: Not Applicable: ADL PLOF Comments independent PLOF using no AD. Self Care: Independent Functional Cognition: Independent DME/Equipment: Bath Chair, Grab Bars, Shower, Tub/Shower Drive Self: Yes OT Current Status Subjective pt sitting in recliner chair upon OT arrival in no apparent distress. pt agreed to OT evaluation/ treatment session. pt daughter present in room for session. Pain Numeric Pain Scale: 0-No Pain Mental Status/Objective Patient Orientation: Person, Place, Time, Eyes Open, Situation Attachments: Mcgee Catheter Current Glasses/Contacts: Yes Hearing Aids: Yes Dentures/Partials: No Hand Dominance: Right Upper Extremity ROM WFL Upper Extremity Coordination finger to nose WFL Upper Extremity Sensation WFL Upper Extremity Strength 3+/5 MMT ADL-Treatment Eating (FIM): 5 (requried set up and additoinal timing ) Eating (QC): 4 Grooming (FIM): 4 (standing at sink to wash hands ) Oral Hygiene (QC): 4 Upper Body Dressing (FIM): 3 (reuqire assist nish pull jacket around back and thread L arm ) Upper Body Dressing (QC): 2 Lower Body Dressing (FIM): 1 (lillian socks) Lower Body Dressing (QC): 1 On/Off Footwear (QC): 1 Toileting (FIM): 2 (required assit to pull up/ down brief ) Toileting Hygiene (QC): 1 Transfers (B, C, W/C) (FIM): 4 (CGA for safety/ balance using RW ) Toilet/Commode Transfer (FIM): 4 (CGA for safety/ balance using RW) noted limited activity tolerance throughout OT session. pt required frequent rest breaks secondary to tolerance. Education OT Patient Education: Energy conservation, Modified ADL techniques, Progress toward Goal/Update tx plan, Purpose of tx/functional activities, Safety issues, Transfer techniques Teaching Recipient: Patient, Family Teaching Methods: Demonstration, Discussion Response to Teaching: Verbalize Understanding, Return Demonstration OT Short Term Goals Short Term Goals Bathing(FIM): 5 Bathing Location: L Arm, R Arm Upper Body Dressing(FIM): 5 Lower Body Dressing(FIM): 5 Toileting(FIM): 5 Transfers (B,C,W/C) (FIM): 5 Toilet/Commode Transfer(FIM): 5 1=Demonstrate adherence to instructed precautions during ADL tasks. 2=Patient will verbalize/demonstrate understanding of assistive devices/modifications for ADL. 3=Patient will improve strength/tolerance for activity to enable patient to perform ADL's. OT Animal Handler Goals Custodial Goals Time Frame: Jan 18, 2019 Eating (FIM): 6 Eating (QC): 6 Groomin Oral Hygiene (QC): 6 Bathing(FIM): 6 Bathing Location: L Arm, R Arm, L Upper Leg, R Upper Leg, L Lower Leg (including foot), R Lower Leg (including foot), Chest, Abdomen, Buttocks, Perineal Area Shower/Bathe Self (QC): 6 Upper Body Dressing(FIM): 6 Upper Body Dressing (QC): 6 Lower Body Dressing(FIM): 6 Lower Body Dressing (QC): 6 On/Off Footwear (QC): 6 Toileting(FIM): 6 Toileting Hygiene (QC): 6 Transfers (B,C,W/C) (FIM): 6 Toilet/Commode Transfer(FIM): 6 Toilet/Commode Transfer (QC): 6 Shower Transfer(FIM): 6 Additional Goals: 1-Demonstrate ADL Tasks, 2-Verbalize Understanding, 3- ImproveStrength/Natty 1=Demonstrate adherence to instructed precautions during ADL tasks. 2=Patient will verbalize/demonstrate understanding of assistive devices/modifications for ADL. 3=Patient will improve strength/tolerance for activity to enable patient to perform ADL's. OT Education/Plan Problem List/Assessment Assessment: Decreased Activ Tolerance, Decreased Safety Aware, Decreased UE Strength, Edema, Impaired Bed Mobility, Impaired Cognition, Impaired Coordination, Impaired Funct Balance, Impaired I ADL's, Impaired Self-Care Skills pt presents with functional limitations affecting areas of ADL and functional transfers with deficits in the above mention. . pt would benefit from skilled OT Services to increase independence with ADLs/ functional transfer. daughter (Luisana) stated she would like pt to d/c from swing bed to NSG home secondary to pt fatigue level. Discharge Recommendations Plan/Recommendations: Continue POC Therapy D/C Recommendations: Penitentiary (TCU/NH) Barriers to Progress limited activity tolerance/ endurance, SOB with activity. Treatment Plan/Plan of Care Treatment,Training & Education: Yes Patient would benefit from OT for education, treatment and training to promote independence in ADL's, mobility, safety and/or upper extremity function for ADL's. Plan of Care: ADL Retraining, Caregiver Training, Concurrent Therapy, Functional Mobility, UE Funct Exercise/Act Treatment Duration: Jan 18, 2019 Frequency: 5 times per week Estimated Hrs Per Day: .25 hour per day Agreement: Yes Rehab Potential: Guarded Time/GCodes Start Time: 13:45 Stop Time: 14:25 Billed Treatment Time EVM 15 minutes ADL 25 minutes, 2 units KENIA WOODSON OT Dec 21, 2018 14:02
--- NOTE | 2018-12-21 15:14 | NUR ---
BRYON SCHMIDT Merna admitted to swing bed status to room 410-1, with an admitting diagnosis of SWB weakness/pna, on 12/21/18 from acute inpatient status. Therapy to evaluate patient for activity needs. BYRON SCHMIDT and family introduced to surroundings, call light, bed controls, phone, TV, temperature control, lights, meal times, smoking policy, visitor policy, side rail policy, bathrooms, and showers. Patient rights given to patient in the handbook.. BYRON SCHMIDT and family member verbalized understanding that [facility] is not responsible for the loss or damage to any personal effects or valuables that are kept in the patients possession during their hospitalization. The following care plans and discharge were discussed with patient and family (daughter). BYRON SCHMIDT and family verbalizes understanding of the Interdisciplinary Patient Education. Patient and family were informed about the Rapid Response Team and its purpose. Call light with in reach and patient demonstrates understanding of how to use. BYRON SCHMIDT reports no further needs at this time.
[2018-12-21] MEDS: RT-ALBUTEROL/IPRATROPIUM 3 ML (DUONEB) VIAL INH SCH ×3 (16:25→22:40)
[2018-12-21] MEDS: CALCIUM CARB + VIT D 600 MG (CALCARB + D) TAB PO SCH ×2 (16:26→18:30)
[2018-12-21 17:50] VITALS: BP 141/64
[2018-12-21] MEDS: BRIMONIDINE TART OS SCH (20:44)
[2018-12-21] MEDS: BRINZOLAMIDE OS SCH (20:44)
[2018-12-21] MEDS: Loteprednol Etabonate (Lotemax) OD SCH (20:44)
[2018-12-21] MEDS: APIXABAN 2.5 MG (ELIQUIS) TABLET PO SCH (20:47)
[2018-12-21] MEDS: LORazepam 0.5 MG (ATIVAN) TABLET PO SCH (20:47)
[2018-12-21] MEDS: PANTOPRAZOLE 40 MG (PROTONIX) TAB PO SCH (20:47)
[2018-12-21] MEDS: DOCUSATE SODIUM 100 MG (COLACE) CAP PO SCH (20:47)
[2018-12-21] MEDS: POLYETHYLENE GLYCOL 17 GM (MIRALAX) PACK PO SCH (20:48)
[2018-12-21 23:22] VITALS: BP 163/75
[2018-12-22] MEDS: RT-ALBUTEROL/IPRATROPIUM 3 ML (DUONEB) VIAL INH SCH ×5 (02:58→18:26)
[2018-12-22] MEDS: DIGOXIN 0.125 MG (LANOXIN) TAB PO SCH (03:08)
[2018-12-22] MEDS: metroNIDAZOLE 500MG/100ML IVPB 100 ML IV SCH ×3 (05:45→21:26)
[2018-12-22] MEDS: DILTIAZEM 30 MG (CARDIZEM) TAB PO SCH ×3 (05:45→17:16)
[2018-12-22] MEDS: LEVOTHYROXINE 75 MCG (LEVOTHROID) TABLET PO SCH (05:45)
[2018-12-22] MEDS: MEROPENEM 500 MG in WATER (STERILE) FOR INJECTION 10 ML IV SCH ×3 (05:46→17:17)
[2018-12-22 06:00] VITALS: BP 145/76
[2018-12-22 06:15] LABS: HEMOGLOBIN 11.6 G/DL (11.5-16.0); MEAN PLATELET VOLUME 9.5 FL (7.4-10.4); WHITE BLOOD COUNT 15.6 10^3/uL (4.3-11.0)
[2018-12-22] MEDS: CALCIUM CARB + VIT D 600 MG (CALCARB + D) TAB PO SCH ×2 (06:38→17:16)
[2018-12-22 06:40] LABS: ALANINE AMINOTRANSFERASE 62 U/L (0-55); ALBUMIN 2.4 GM/DL (3.2-4.5); ALKALINE PHOSPHATASE 62 U/L (40-136); BILIRUBIN,TOTAL 0.8 MG/DL (0.1-1.0); BUN/CREATININE RATIO 28; CALCIUM 7.8 MG/DL (8.5-10.1); CARBON DIOXIDE 20 MMOL/L (21-32); CHLORIDE 100 MMOL/L (98-107); CREATININE SERUM 0.68 MG/DL (0.60-1.30); GFR ESTIMATED > 60; GLUCOSE 112 MG/DL (70-105); MAGNESIUM 1.8 MG/DL (1.8-2.4); SODIUM 128 MMOL/L (135-145); TOTAL PROTEIN 5.1 GM/DL (6.4-8.2)
[2018-12-22] MEDS: SIMETHICONE 80 MG (MYLICON) CHEW PO SCH ×4 (08:07→21:21)
--- NOTE | 2018-12-22 08:35 | Pulmonary Progress Note ---
Subjective Time Seen by a Provider: 08:34 Subjective/Events-last exam No complications noted. Sepsis Event Evaluation Height, Weight, BMI Height: 5'1.00" Weight: 109lbs. 9.0oz. 49.081405ug; 20.0 BMI Method:Stated Exam Exam Vital Signs Date Time Temp Pulse Resp B/P (MAP) Pulse Ox O2 Delivery O2 Flow Rate FiO2 12/22/18 07:00 64 12/22/18 06:00 97.8 86 20 145/76 (99) 91 Nasal Cannula 3.00 12/22/18 02:58 94 Nasal Cannula 3.00 12/22/18 01:00 78 12/21/18 23:22 97.6 82 20 163/75 (104) 94 Nasal Cannula 3.00 12/21/18 22:40 94 Nasal Cannula 3.00 12/21/18 21:00 95 Nasal Cannula 3.00 12/21/18 19:00 83 12/21/18 18:47 92 Nasal Cannula 2.50 12/21/18 17:50 98.4 77 18 141/64 (89) 90 Nasal Cannula 2.50 12/21/18 13:18 90 152/70 (97) 12/21/18 13:00 81 12/21/18 12:58 96.9 78 20 124/66 (85) 93 Room Air 0.00 I & O 12/22/18 07:00 Intake Total 675 ml Output Total 875 ml Balance -200 ml Height & Weight Height: 5'1.00" Weight: 109lbs. 9.0oz. 49.947837un; 20.0 BMI Method:Stated General Appearance: No Apparent Distress, WD/WN, Anxious HEENT: PERRL/EOMI, Pharynx Normal Neck: Full Range of Motion, Normal Inspection, Non Tender, Supple Respiratory: Chest Non Tender, No Respiratory Distress, Decreased Breath Sounds Cardiovascular: Regular Rate, Rhythm, No Edema Capillary Refill: Less Than 3 Seconds Gastrointestinal: normal bowel sounds, non tender, soft Extremity: Normal Capillary Refill, Normal Inspection, No Pedal Edema Neurologic/Psychiatric: Alert, Oriented x3 Skin: Normal Color Results Lab Laboratory Tests 12/22/18 06:00 Assessment/Plan Assessment/Plan Pneumonia with left pleural effusion -Continue Merrem -Left pleural fluid is neg cytology -check villanueva cultures -(Echocardiogram done 12/11/18 EF 55-65% Left atrial dilatation 4.2cm, MVP with 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
[2018-12-22] MEDS: APIXABAN 2.5 MG (ELIQUIS) TABLET PO SCH ×2 (09:09→21:19)
[2018-12-22] MEDS: meTOprolol SUCCINATE 100 MG (TOPROL XL) TAB PO SCH (09:09)
[2018-12-22] MEDS: BRIMONIDINE TART OS SCH ×2 (09:10→21:04)
[2018-12-22] MEDS: ARTIFICAL TEARS 0.4 ML UNIT DOSE (REFRESH PLUS) OU SCH ×4 (09:10→21:04)
[2018-12-22] MEDS: BRINZOLAMIDE OS SCH ×2 (09:10→21:04)
[2018-12-22] MEDS: FLUTICASONE NASAL SPRAY (FLONASE) 16 GM BTL NS SCH (09:11)
[2018-12-22] MEDS: Loteprednol Etabonate (Lotemax) OD SCH ×2 (09:11→21:03)
[2018-12-22] MEDS: SODIUM CHLORIDE 1 GM TAB (NON-FORMULARY) PO SCH (09:17)
[2018-12-22] MEDS: LACTOBACILLUS ACIDOPHILUS (PROBIOTIC) CAPSULE PO SCH (09:17)
--- NOTE | 2018-12-22 10:52 | Physical Therapy Daily Note ---
PT Daily Note-Current Subjective Pt. up in chair with daughter present, states she is "exhausted" today. She agrees to LE exercises only. Transfers Therapy Code Descriptions/Definitions Functional [place] Measure: 0=Not Assessed/NA 4=Minimal Assistance 1=Total Assistance 5=Supervision or Setup 2=Maximal Assistance 6=Modified [place] 3=Moderate Assistance 7=Complete [place] Therapy Quality Codes: 6 Independent with activity with or without an assistive device 5 Patient requires set up or clean up by helper. Patient completes activity by themselves 4 Supervision or touching assist (CGA). [place] provide cues , steadying assist 3 The helper provides less than half the effort to complete the activity 2 The helper provides more than half the effort to complete the activity 1 Dependent. The helper does all the effort to complete an activity 7 Patient refused to complete or attempt activity 9 The patient did not perform the activity before the current illness or injury 88 Not attempted due to Medical conditions or safety concerns Transfers (B, C, W/C) (FIM): 4 Sit to/from Stand: 4 Weight Bearing Right Lower Extremity: Right Full Weight Bearing Left Lower Extremity: Left Full Weight Bearing Gait Training Does the Patient Walk?: Yes Gait (FIM): 1 Distance (FIM): 1=up to 49 ft Distance: 10 ft Gait Level of Assist: 4 Gait Persons Needed: 1 Gait Assistive Device: FWW Assist to ambulate to bathroom. Pt. has slow, kyphotic gait posture Exercises Seated Therapy Exercises: Ankle pumps, Long arc quads, Hip flexion, Hip abd/add , Glut set Seated Reps: 15 Treatments LE exercises Assessment Current Status: Good Progress, Fair Progress Pt. appeared very fatigued during session and needed periodic rest breaks between sets of exercise. Pt. ambulated 10 ft from chair to bathroom, slow gait but steady. Pt. instructed to notify nursing when ready to return to bed, daughter also present in room, all needs met. PT Short Term Goals Short Term Goals Transfers (B,C,W/C) (FIM): 5 PT Nursing Home Goals Social Work Professor Goals PT Nursing Home Goals Time Frame: Jan 05, 2019 Transfers (B,C,W/C) (FIM): 5 Sit to Lying (QC): 5 Lying-Sitting on Side/Bed(QC): 5 Sit to Stand (QC): 5 Rollin Roll Left to Right (QC): 5 Chair/Nld-bm-Khxus Xfer(QC): 5 Car Transfer (QC): 5 Does the Patient Walk: Yes Gait (FIM): 5 Gait distance (FIM): 3=150 ft Distance: 150' Walk 10 feet (QC): 5 Walk 10ft-Uneven Surface(QC): 5 Walk 50ft with 2 Turns (QC): 5 Walk 150 ft (QC): 5 Gait Level of Assist: 5 Gait Assistive Device: FWW PT Plan Treatment/Plan Treatment Plan: Continue Plan of Care Treatment Plan: Bed Mobility, Education, Functional Activity Natty, Functional Strength, Gait, Safety, Therapeutic Exercise, Transfers Treatment Duration: Jan 05, 2019 Frequency: 6 times per week Estimated Hrs Per Day: .25 hour per day Patient and/or Family Agrees t: Yes Time/GCodes Time In: 940 Time Out: 958 Total Billed Treatment Time: 18 Total Billed Treatment 1, Ex 15', (FA 3') JOSE MILLER PT Dec 22, 2018 10:52
[2018-12-22] MEDS: NYSTATIN ORAL SUSP 5 ML UDC PO SCH ×4 (12:02→21:20)
--- NOTE | 2018-12-22 15:31 | Progress Note-Cardiology ---
Cardiology SOAP Progress Note Subjective: Gen weakness, malaise, tiredness Exertional shortness of breath No cp or palp or syncope Objective: I&O/Vital Signs 12/22/18 12/22/18 12/22/18 12/22/18 06:00 07:00 08:00 10:50 Temp 97.8 Pulse 86 64 Resp 20 B/P (MAP) 145/76 (99) Pulse Ox 91 95 94 O2 Delivery Nasal Cannula Nasal Cannula Nasal Cannula O2 Flow Rate 3.00 3.00 3.00 12/22/18 12/22/18 12:36 14:39 Pulse 79 Pulse Ox 95 O2 Delivery Nasal Cannula O2 Flow Rate 3.00 12/22/18 00:00 Intake Total 350 ml Output Total 350 ml Balance 0 ml Weight (Pounds): 109 Weight (Ounces): 9.0 Weight (Calculated Kilograms): 49.273841 Constitutional: AAO x 3, well-developed, well-nourished Respiratory: No accessory muscle use; other (fair to good bilat air entry, diminished at the bases) Cardiovascular: irregularly irregular, S1 and S2, systolic murmur (2/6 SOPHIE at card base) Gastrointestional: No tender; soft; No guarding, No rebound; audible bowel sounds Extremities: swelling (mild to mod bilat leg swelling); No clubbing, No cyanosis Neurologic/Psychiatric: oriented x 3, other (seems to move all limbs, power is bilaterally diminished but there does not appear to be foucal weakness), grossly intact Skin: No rash on exposed areas, No ulcerations on exposed areas Results/Procedures: Labs Laboratory Tests 12/22/18 06:00: White Blood Count 15.6H, Red Blood Count 3.79L, Hemoglobin 11.6, Hematocrit 34L, Mean Corpuscular Volume 91, Mean Corpuscular Hemoglobin 31, Mean Corpuscular Hemoglobin Concent 34, Red Cell Distribution Width 14.0, Platelet Count 302, Mean Platelet Volume 9.5, Sodium Level 128L, Potassium Level 4.0, Chloride Level 100, Carbon Dioxide Level 20L, Anion Gap 8, Blood Urea Nitrogen 19H, Creatinine 0.68, Estimat Glomerular Filtration Rate > 60, BUN/Creatinine Ratio 28, Glucose Level 112H, Calcium Level 7.8L, Corrected Calcium 9.1, Magnesium Level 1.8, Total Bilirubin 0.8, Aspartate Amino Transf (AST/SGOT) 27, Alanine Aminotransferase (ALT/SGPT) 62H, Alkaline Phosphatase 62, Total Protein 5.1L, Albumin 2.4L A/P: Assessment: Gen weakness and malaise Hyponatremia of undetermined etiology, managed by the [facility] Bilateral pleural effusion, status post thoracentesis, receiving antibiotics Chronic atrial fibrillation, heart rate appears controlled Echo of 12/11/18: EF 55-65% LA dilatation 4.2cm, 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 Bahena Anxiety and depression, managed by primary care physician GERMAN, by histoyr Plan: * I reviewed her chart, interviewed her, examined her, and and answered her and her son's CV-related questions * Management is complex, given multiple comorbidities * Currently on 3 rate-controlling agents. Apparently, has been on these relatively chronically and has tolerated them well * Continue stroke prophylaxis with apixaban * Monitor labs SHAWN KRUGER MD FACP FAC CCDS Dec 22, 2018 15:31
[2018-12-22 17:57] VITALS: BP 135/65
[2018-12-22 20:14] VITALS: BP 135/65
[2018-12-22] MEDS: PANTOPRAZOLE 40 MG (PROTONIX) TAB PO SCH (21:19)
[2018-12-22] MEDS: DOCUSATE SODIUM 100 MG (COLACE) CAP PO SCH (21:19)
[2018-12-22] MEDS: LORazepam 0.5 MG (ATIVAN) TABLET PO SCH (21:20)
[2018-12-22] MEDS: POLYETHYLENE GLYCOL 17 GM (MIRALAX) PACK PO SCH (21:20)
[2018-12-23] MEDS: MEROPENEM 500 MG in WATER (STERILE) FOR INJECTION 10 ML IV SCH ×4 (00:43→17:51)
[2018-12-23] MEDS: DILTIAZEM 30 MG (CARDIZEM) TAB PO SCH ×4 (00:55→17:52)
[2018-12-23] MEDS: RT-ALBUTEROL/IPRATROPIUM 3 ML (DUONEB) VIAL INH SCH ×5 (03:15→20:02)
[2018-12-23] MEDS: metroNIDAZOLE 500MG/100ML IVPB 100 ML IV SCH ×3 (04:48→21:16)
[2018-12-23 05:01] LABS: HEMOGLOBIN 10.6 G/DL (11.5-16.0); MEAN PLATELET VOLUME 9.3 FL (7.4-10.4); RED CELL DISTRIBUTION WIDTH 14.3 % (10.0-14.5); WHITE BLOOD COUNT 14.5 10^3/uL (4.3-11.0)
[2018-12-23 05:12] VITALS: BP 138/73
[2018-12-23 05:20] LABS: ALANINE AMINOTRANSFERASE 47 U/L (0-55); ALBUMIN 2.2 GM/DL (3.2-4.5); ALKALINE PHOSPHATASE 51 U/L (40-136); BILIRUBIN,TOTAL 0.7 MG/DL (0.1-1.0); BUN/CREATININE RATIO 26; CALCIUM 7.7 MG/DL (8.5-10.1); CARBON DIOXIDE 21 MMOL/L (21-32); CHLORIDE 100 MMOL/L (98-107); CREATININE SERUM 0.65 MG/DL (0.60-1.30); GFR ESTIMATED > 60; GLUCOSE 107 MG/DL (70-105); MAGNESIUM 1.5 MG/DL (1.8-2.4); POTASSIUM 3.9 MMOL/L (3.6-5.0); SODIUM 129 MMOL/L (135-145); TOTAL PROTEIN 4.5 GM/DL (6.4-8.2)
[2018-12-23] MEDS: LEVOTHYROXINE 75 MCG (LEVOTHROID) TABLET PO SCH (05:53)
[2018-12-23] MEDS: CALCIUM CARB + VIT D 600 MG (CALCARB + D) TAB PO SCH ×2 (05:53→17:51)
--- NOTE | 2018-12-23 07:15 | Pulmonary Progress Note ---
Subjective Time Seen by a Provider: 07:15 Subjective/Events-last exam No complications noted. Sepsis Event Evaluation Height, Weight, BMI Height: 5'1.00" Weight: 109lbs. 9.0oz. 49.466676kk; 20.0 BMI Method:Stated Exam Exam Vital Signs Date Time Temp Pulse Resp B/P (MAP) Pulse Ox O2 Delivery O2 Flow Rate FiO2 12/23/18 05:12 97.4 80 18 138/73 (94) 94 Nasal Cannula 3.00 12/23/18 01:00 79 12/22/18 21:00 92 Nasal Cannula 3.00 12/22/18 20:14 82 92 32 12/22/18 19:00 82 12/22/18 18:26 92 Nasal Cannula 3.00 12/22/18 17:57 98.0 84 16 135/65 (88) 93 Nasal Cannula 3.00 12/22/18 14:39 95 Nasal Cannula 3.00 12/22/18 12:36 79 12/22/18 10:50 94 Nasal Cannula 3.00 12/22/18 08:00 95 Nasal Cannula 3.00 I & O 12/23/18 07:00 Intake Total 950 ml Output Total 975 ml Balance -25 ml Height & Weight Height: 5'1.00" Weight: 109lbs. 9.0oz. 49.080990oo; 20.0 BMI Method:Stated General Appearance: No Apparent Distress, WD/WN, Anxious HEENT: PERRL/EOMI, Pharynx Normal Neck: Full Range of Motion, Normal Inspection, Non Tender, Supple Respiratory: Chest Non Tender, No Respiratory Distress, Decreased Breath Sounds Cardiovascular: Regular Rate, Rhythm, No Edema Capillary Refill: Less Than 3 Seconds Gastrointestinal: normal bowel sounds, non tender, soft Extremity: Normal Capillary Refill, Normal Inspection, No Pedal Edema Neurologic/Psychiatric: Alert, Oriented x3 Skin: Normal Color Results Lab Laboratory Tests 12/22/18 06:00 12/23/18 04:50 Assessment/Plan Assessment/Plan Pneumonia with left pleural effusion -Continue Merrem -Left pleural fluid is neg cytology -check villanueva cultures -(Echocardiogram done 12/11/18 EF 55-65% Left atrial dilatation 4.2cm, MVP with mod MR, mod-sev TR PA 50-55mmHg, continue to monitor) Hypomag -replace Pulmonary HTN -monitor for now Hx left nephrectomy secondary to low-grade papillary CA, noninvasive done in July 2015 Hyponatremia Afib CAD ZOILA LOZADA DO Dec 23, 2018 07:15
[2018-12-23] MEDS: MAGNESIUM 1 GM/100 ML IVPB 100 ML IV SCH ×2 (08:02→09:23)
[2018-12-23] MEDS: NYSTATIN ORAL SUSP 5 ML UDC PO SCH ×4 (08:03→21:16)
[2018-12-23] MEDS: meTOprolol SUCCINATE 100 MG (TOPROL XL) TAB PO SCH (08:03)
[2018-12-23] MEDS: LACTOBACILLUS ACIDOPHILUS (PROBIOTIC) CAPSULE PO SCH (08:03)
[2018-12-23] MEDS: SIMETHICONE 80 MG (MYLICON) CHEW PO SCH ×4 (08:03→21:16)
[2018-12-23] MEDS: APIXABAN 2.5 MG (ELIQUIS) TABLET PO SCH ×2 (08:03→21:16)
[2018-12-23] MEDS: FLUTICASONE NASAL SPRAY (FLONASE) 16 GM BTL NS SCH (08:04)
[2018-12-23] MEDS: Loteprednol Etabonate (Lotemax) OD SCH ×2 (08:04→21:15)
[2018-12-23] MEDS: BRINZOLAMIDE OS SCH ×2 (08:04→21:15)
[2018-12-23] MEDS: BRIMONIDINE TART OS SCH ×2 (08:04→21:15)
[2018-12-23] MEDS: ARTIFICAL TEARS 0.4 ML UNIT DOSE (REFRESH PLUS) OU SCH ×4 (08:05→21:16)
[2018-12-23] MEDS: SODIUM CHLORIDE 1 GM TAB (NON-FORMULARY) PO SCH (08:05)
--- NOTE | 2018-12-23 14:49 | Progress Note-Cardiology ---
Cardiology SOAP Progress Note Subjective: Feels weak and tired Does not report cp or palp or syncope Has exertional shortness of breath Objective: I&O/Vital Signs 12/23/18 12/23/18 12/23/18 12/23/18 05:12 07:00 09:00 13:00 Temp 97.4 Pulse 80 82 65 Resp 18 B/P (MAP) 138/73 (94) Pulse Ox 94 95 O2 Delivery Nasal Cannula Nasal Cannula O2 Flow Rate 3.00 3.00 12/23/18 00:00 Intake Total 900 ml Output Total 625 ml Balance 275 ml Weight (Pounds): 109 Weight (Ounces): 9.0 Weight (Calculated Kilograms): 49.612693 Constitutional: AAO x 3, well-developed, well-nourished Respiratory: No accessory muscle use; other (fair to good bilat air entry, diminished at the bases) Cardiovascular: irregularly irregular, S1 and S2, systolic murmur (2/6 SOPHIE at card base) Gastrointestional: No tender; soft; No guarding, No rebound; audible bowel sounds Extremities: swelling (mild to mod bilat leg swelling); No clubbing, No cyanosis Neurologic/Psychiatric: oriented x 3, other (seems to move all limbs, power is bilaterally diminished but there does not appear to be foucal weakness), grossly intact Skin: No rash on exposed areas, No ulcerations on exposed areas Results/Procedures: Labs Laboratory Tests 12/23/18 04:50: White Blood Count 14.5H, Red Blood Count 3.47L, Hemoglobin 10.6L, Hematocrit 32L , Mean Corpuscular Volume 91, Mean Corpuscular Hemoglobin 31, Mean Corpuscular Hemoglobin Concent 33, Red Cell Distribution Width 14.3, Platelet Count 270, Mean Platelet Volume 9.3, Sodium Level 129L, Potassium Level 3.9, Chloride Level 100, Carbon Dioxide Level 21, Anion Gap 8, Blood Urea Nitrogen 17, Creatinine 0.65, Estimat Glomerular Filtration Rate > 60, BUN/Creatinine Ratio 26, Glucose Level 107H, Calcium Level 7.7L, Corrected Calcium 9.1, Magnesium Level 1.5L, Total Bilirubin 0.7, Aspartate Amino Transf (AST/SGOT) 21, Alanine Aminotransferase (ALT/SGPT) 47, Alkaline Phosphatase 51, Total Protein 4.5L, Albumin 2.2L A/P: Assessment: Gen weakness and malaise, multifactorial Pneumonia and parapneumonic effusion Hyponatremia, 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 Bahena Anxiety and depression, managed by primary care physician GERD, by history Plan: * Management is complex, given multiple comorbidities * Currently on 3 rate-controlling agents. Apparently, has been on these relatively chronically and has tolerated them well * Continue stroke prophylaxis with apixaban * Monitor labs SHAWN KRUGER MD FACP FAC CCDS Dec 23, 2018 14:49
[2018-12-23 18:00] VITALS: BP 137/73
[2018-12-23] MEDS: LORazepam 0.5 MG (ATIVAN) TABLET PO SCH (21:16)
[2018-12-23] MEDS: PANTOPRAZOLE 40 MG (PROTONIX) TAB PO SCH (21:16)
[2018-12-23] MEDS: DOCUSATE SODIUM 100 MG (COLACE) CAP PO SCH (21:16)
[2018-12-23] MEDS: POLYETHYLENE GLYCOL 17 GM (MIRALAX) PACK PO SCH (21:18)
[2018-12-24 00:37] VITALS: BP 147/74
[2018-12-24] MEDS: MEROPENEM 500 MG in WATER (STERILE) FOR INJECTION 10 ML IV SCH ×4 (00:56→17:40)
[2018-12-24] MEDS: DILTIAZEM 30 MG (CARDIZEM) TAB PO SCH ×4 (00:56→17:40)
[2018-12-24] MEDS: RT-ALBUTEROL/IPRATROPIUM 3 ML (DUONEB) VIAL INH SCH ×3 (02:30→19:39)
[2018-12-24] MEDS: DIGOXIN 0.125 MG (LANOXIN) TAB PO SCH (03:57)
[2018-12-24 04:15] LABS: HEMOGLOBIN 10.5 G/DL (11.5-16.0); MEAN PLATELET VOLUME 9.7 FL (7.4-10.4); RED CELL DISTRIBUTION WIDTH 14.2 % (10.0-14.5); WHITE BLOOD COUNT 15.2 10^3/uL (4.3-11.0)
[2018-12-24 04:34] LABS: ALANINE AMINOTRANSFERASE 44 U/L (0-55); ALBUMIN 2.1 GM/DL (3.2-4.5); ALKALINE PHOSPHATASE 49 U/L (40-136); BILIRUBIN,TOTAL 0.6 MG/DL (0.1-1.0); BUN/CREATININE RATIO 24; CALCIUM 7.7 MG/DL (8.5-10.1); CARBON DIOXIDE 20 MMOL/L (21-32); CHLORIDE 99 MMOL/L (98-107); CREATININE SERUM 0.75 MG/DL (0.60-1.30); GFR ESTIMATED > 60; GLUCOSE 93 MG/DL (70-105); MAGNESIUM 1.6 MG/DL (1.8-2.4); POTASSIUM 3.8 MMOL/L (3.6-5.0); SODIUM 127 MMOL/L (135-145); TOTAL PROTEIN 4.2 GM/DL (6.4-8.2)
[2018-12-24 04:40] VITALS: BP 145/65
[2018-12-24] MEDS: metroNIDAZOLE 500MG/100ML IVPB 100 ML IV SCH ×3 (06:15→21:42)
[2018-12-24] MEDS: CALCIUM CARB + VIT D 600 MG (CALCARB + D) TAB PO SCH ×2 (06:16→17:40)
[2018-12-24] MEDS: LEVOTHYROXINE 75 MCG (LEVOTHROID) TABLET PO SCH (06:16)
[2018-12-24 08:00] VITALS: BP 128/60
[2018-12-24] MEDS: LACTOBACILLUS ACIDOPHILUS (PROBIOTIC) CAPSULE PO SCH (08:48)
[2018-12-24] MEDS: LORazepam 0.5 MG (ATIVAN) TABLET PO PRN (08:48)
[2018-12-24] MEDS: ARTIFICAL TEARS 0.4 ML UNIT DOSE (REFRESH PLUS) OU SCH ×5 (08:48→22:08)
[2018-12-24] MEDS: APIXABAN 2.5 MG (ELIQUIS) TABLET PO SCH ×2 (08:48→21:41)
[2018-12-24] MEDS: NYSTATIN ORAL SUSP 5 ML UDC PO SCH ×4 (08:48→21:41)
[2018-12-24] MEDS: meTOprolol SUCCINATE 100 MG (TOPROL XL) TAB PO SCH (08:49)
[2018-12-24] MEDS: BRINZOLAMIDE OS SCH ×3 (08:50→22:08)
[2018-12-24] MEDS: Loteprednol Etabonate (Lotemax) OD SCH ×2 (08:50→21:49)
[2018-12-24] MEDS: BRIMONIDINE TART OS SCH ×3 (08:50→22:08)
[2018-12-24] MEDS: FLUTICASONE NASAL SPRAY (FLONASE) 16 GM BTL NS SCH (08:50)
--- NOTE | 2018-12-24 08:53 | Progress Note ---
Subjective Date Seen by a Provider: Dec 24, 2018 Time Seen by a Provider: 09:10 Subjective/Events-last exam PT REPORTS THAT SHE IS FEELING VERY FATIGUED, HER DAUGHTER NOTES THAT HER MOM APPEARS MORE FATIGUED TODAY THAN YESTERDAY. THEY NOTE THAT SHE WAS AWAKENED TO BE ASKED IF SHE WANTED SCD'S ON HER LEGS, AND ALSO AT 2AM FOR A BREATHING TREATMENT. SHE FEELS LIKE HER MOM IS MORE DEPRESSED THAN LAST WEEK. SHE IS ASKING ABOUT [facility] OPTIONS AND TIME FRAME FOR TRANSFER. Review of Systems General: Fatigue HEENT: No Head Aches Pulmonary: Dyspnea, Cough Cardiovascular: Edema; No: Chest Pain, Palpitations Gastrointestinal: Other (LOOSE BUT NOT DIARRHEAL STOOLS, LARGE AMOUNT OF GAS AND BELCHING); No: Nausea, Abdominal Pain Genitourinary: Other (DAWKINS IN PLACE - PINKISH OUTPUT THIS MORNING) Musculoskeletal: No: back pain, leg pain Neurological: Weakness; No: Confusion Objective Exam Last Set of Vital Signs Vital Signs Date Time Temp Pulse Resp B/P (MAP) Pulse Ox O2 Delivery O2 Flow Rate FiO2 12/24/18 08:00 98.6 74 20 128/60 (82) Nasal Cannula 3.00 12/24/18 04:40 90 12/22/18 20:14 32 Capillary Refill : Less Than 3 SecondsLess Than 3 Seconds I&O Intake and Output 12/24/18 00:00 Intake Total 550 ml Output Total 1125 ml Balance -575 ml Intake Oral 550 ml Output Urine Total 1125 ml # Bowel Movements 1 General: Alert, Oriented X3, Cooperative, Other (EXTREME FATIGUE) HEENT: Other (RIGHT EYE CLOUDY, LEFT PUPIL ROUND AND REACTIVE) Neck: Supple Lungs: Clear to Auscultation, Normal Air Movement Heart: Other (IRREGULARLY IRREGULAR WITH REGULAR RATE) Abdomen: Other (HYPERACTIVE BOWEL SOUNDS) Extremities: Other (+3 PITTING EDEMA) Neuro: Normal Speech Psych/Mental Status: Mental Status NL, Other (FLAT AFFECT) Results Lab Laboratory Tests 12/24/18 04:00: White Blood Count 15.2H, Red Blood Count 3.34L, Hemoglobin 10.5L, Hematocrit 30L , Mean Corpuscular Volume 91, Mean Corpuscular Hemoglobin 31, Mean Corpuscular Hemoglobin Concent 35, Red Cell Distribution Width 14.2, Platelet Count 237, Mean Platelet Volume 9.7, Sodium Level 127L, Potassium Level 3.8, Chloride Level 99, Carbon Dioxide Level 20L, Anion Gap 8, Blood Urea Nitrogen 18, Creatinine 0.75, Estimat Glomerular Filtration Rate > 60, BUN/Creatinine Ratio 24, Glucose Level 93, Calcium Level 7.7L, Corrected Calcium 9.2, Magnesium Level 1.6L, Total Bilirubin 0.6, Aspartate Amino Transf (AST/SGOT) 31, Alanine Aminotransferase (A LT/SGPT) 44, Alkaline Phosphatase 49, Total Protein 4.2L, Albumin 2.1L Assessment/Plan Assessment/Plan Assess & Plan/Chief Complaint HYPONATREMIA ATRIAL FIBRILLATION HYPERTENSION HYPOTHYROIDISM CHRONIC ANXIETY HYPERLIPIDEMIA ESOPHAGEAL REFLUX PLEURAL EFFUSION PNEUMONIA INSOMNIA DEPRESSION HYPONATREMIA -INITIALLY REPLACED WITH IV FLUIDS, THEN SHE WAS STARTED ON SODIUM CHLORIDE TAB - CONTINUE TO MONITOR SODIUM LEVELS. PLEURAL EFFUSION - WITH NODULARITY ON CT SCAN OF HILUM - AND EVIDENCE OF PNEUMONIC PROCESS - ADVISED PT AND HER DTR OF CT SCAN FINDINGS REPEAT CT SCAN TO BE DONE AGAIN TODAY TO EVALUATE THE NODULARITY SEEN ON PREVIOUS CT SCAN. ATRIAL FIBRILLATION - STABLE ON DIGOXIN, DILTIAZEM, METOPROLOL AND ELIQUIS HYPERTENSION - RESUMED HOME REGIMEN HYPOTHYROIDISM - CONTINUE WITH CURRENT REGIMEN - TSH AND FREE T4 ARE STABLE. CHRONIC ANXIETY - SUPPORTIVE CARE HYPERLIPIDEMIA - CONTINUE TO HOLD STATIN AT THIS TIME ESOPHAGEAL REFLUX - ON PANTOPRAZOLE AND SCHEDULE CARAFATE STARTED PHYSICAL THERAPY DUE TO HER WEAKNESS - CONTINUE WITH PHYSICAL THERAPY - PT FATIGUED, BUT NEEDS THERAPY FOR STRENGTHENING PRIOR TO A TRANSFER OUT OF HOSPITAL TO SNF THEN HOPEFULLY TO ASSISTED LIVING AT [facility]. DEPRESSION -AND ANXIETY - RESTARTED SSRI,SYMPTOMS WORSE TODAY - STOP CELEXA AND START ON CYMBALTA 20MG BID. INSOMNIA - UNCONTROLLED - STOPPED XANAX, STARTED ON ATIVAN. ASKING STAFF TO STOP INTERRUPTION OF SLEEP MUCH POSSIBLE SO THAT SHE CAN HAVE SOME RECOVERY FROM HER ILLNESS WITH MUCH NEEDED REST. PLANNING ON EVENTUAL TRANSFER TO [facility] AT THE END OF THIS WEEK - DTR LOOKING AT [facility]. Clinical Quality Measures DVT/VTE Risk/Contraindication: Risk Factor Score Per Nursin JUNIOR SELLERS MD Dec 24, 2018 08:53
[2018-12-24] MEDS: SODIUM CHLORIDE 1 GM TAB (NON-FORMULARY) PO SCH (08:54)
[2018-12-24] MEDS: SIMETHICONE 80 MG (MYLICON) CHEW PO SCH ×4 (08:57→21:42)
--- NOTE | 2018-12-24 10:12 | NUR ---
CM/SS, respond to consult for discharge planning. PLAN: Community residential facility. Daughter Luisana is here from [facility], son Manuelito Mark resides in [place]. They are touring [facility]'s, they will visit [facility] today, already been to [facility] and [facility]. Luisana will update greeting card writer when they select a preferred facility and referral will be completed. Physician indicates discharge later this week, CARE Assessment pending. Addendum: 12/24/18 at 1017 by ANIYA PINTO Luisana, Daughter [address] [facility] [id number]
--- NOTE | 2018-12-24 10:35 | Physical Therapy Progress Note ---
Therapy Progress Note Patient's daughter declined PT treatment at this time due to patient is resting. PT will attempt later this a.m. or p.m. 1 ref ([id number]) RUDDY WILSON PT Dec 24, 2018 10:35
--- NOTE | 2018-12-24 10:49 | NUR ---
CM/SS. Daughter requested that a referral be completed with [facility]. Spoke with [facility] has requested pvt/pvt room, will accept pvt/shared setup if can be on wait list for pvt/pvt. They were cued by physician to request placement under [facility] Will negotiate with patient/family based on what [facility] has available. Monitoring for progress as it relates to overall discharge planning.
[2018-12-24 12:00] VITALS: BP 118/65
--- NOTE | 2018-12-24 12:00 | NUR ---
PULSE 56, PO DOSE OF CARDIZEM HELD DUE TO PULSE BEING LESS THAN 60, CONT ON TELEMETRY, FAMILY AT BEDSIDE, DAWKINS PATENT, PICC LINE SITE WITHOUT REDNESS OR SWELLING
[2018-12-24] MEDS: SUCRALFATE 1 GM (CARAFATE) TAB PO SCH ×3 (13:15→21:42)
[2018-12-24 13:33] LABS: BILIRUBIN,URINE NEGATIVE (NEGATIVE); CLARITY,URINE SLIGHTLY CLOUDY; COLOR,URINE YELLOW; GLUCOSE, URINE (UA) NEGATIVE (NEGATIVE); KETONES,URINE 1+ (NEGATIVE); LEUKOCYTE ESTERASE ,URINE 3+ (NEGATIVE); NITRITE,URINE NEGATIVE (NEGATIVE); PH,URINE 6.5 (5-9); PROTEIN,URINE 3+ (NEGATIVE); UROBILINOGEN,URINE NORMAL (NORMAL)
--- NOTE | 2018-12-24 13:40 | Physical Therapy Progress Note ---
Therapy Progress Note Patient's daughter declined PT for the day due to patient's extreme fatigue. Per family, Dr. Bahena is aware. Will continue to attempt. 1 ref ([id number]) RUDDY WILSON PT Dec 24, 2018 13:40
[2018-12-24 13:48] LABS: BACTERIA,URINE NEGATIVE /HPF; RBC,URINE TNTC /HPF; WBC,URINE 50-100 /HPF
--- NOTE | 2018-12-24 14:26 | Occupational Ther Daily Note ---
OT Current Status-Daily Note Subjective pt agreed to OT TX session with focus on increasing independence with ADLs and functional transfers. pt complains of no pain. pt daughter an daughter in law present in room. Mental Status/Objective Therapy Code Descriptions/Definitions Functional [place] Measure: 0=Not Assessed/NA 4=Minimal Assistance 1=Total Assistance 5=Supervision or Setup 2=Maximal Assistance 6=Modified [place] 3=Moderate Assistance 7=Complete [place] Attachments: Mcgee Catheter ADL-Treatment Therapy Code Descriptions/Definitions Functional [place] Measure: 0=Not Assessed/NA 4=Minimal Assistance 1=Total Assistance 5=Supervision or Setup 2=Maximal Assistance 6=Modified [place] 3=Moderate Assistance 7=Complete [place] Therapy Quality Codes: 6 Independent with activity with or without an assistive device 5 Patient requires set up or clean up by helper. Patient completes activity by themselves 4 Supervision or touching assist (CGA). [place] provide cues , steadying assist 3 The helper provides less than half the effort to complete the activity 2 The helper provides more than half the effort to complete the activity 1 Dependent. The helper does all the effort to complete an activity 7 Patient refused to complete or attempt activity 9 The patient did not perform the activity before the current illness or injury 88 Not attempted due to Medical conditions or safety concerns Grooming (FIM): 4 (standing at sink. CGA for safety/ balance while using RW. ) Toileting (FIM): 4 (CGA for safety/ balance while using RW/ GB pt perform 07/10 (hygiene) toiletin task with increase timing. skilled cuing required for energy conservation. . ) Toileting Hygiene (QC): 4 Transfers (B, C, W/C) (FIM): 4 (CGA for safety/ balance while using RW. ) Toilet/Commode Transfer (FIM): 4 (CGA for safety/ balance while using RW. ) Toilet Transfer (QC): 4 pt perform bed mobility with MIN A. noted slight SOB. pt wearing O2 3L NC this date. pt education on pursed lip breathing. pt demo understanding. pt demo ability to ambulated 30 ft to bathroom with CGA for safety/ balance and complete toileting task *(see FIM score). pt then ambulated 10 ft post bathroom and sat in w/c. pt transition into care of aircraft systems technician for CT scan. pt complains of no pain. Education OT Patient Education: Energy conservation, Modified ADL techniques, Progress toward Goal/Update tx plan, Purpose of tx/functional activities, Transfer techniques Teaching Recipient: Patient, Family Teaching Methods: Demonstration, Discussion Response to Teaching: Verbalize Understanding, Return Demonstration OT Short Term Goals Short Term Goals Bathing(FIM): 5 Bathing Location: L Arm, R Arm Upper Body Dressing(FIM): 5 Lower Body Dressing(FIM): 5 Toileting(FIM): 5 Transfers (B,C,W/C) (FIM): 5 Toilet/Commode Transfer(FIM): 5 1=Demonstrate adherence to instructed precautions during ADL tasks. 2=Patient will verbalize/demonstrate understanding of assistive devices/modifications for ADL. 3=Patient will improve strength/tolerance for activity to enable patient to perform ADL's. OT Android Ui Developer Goals Android Ui Developer Goals Time Frame: Jan 18, 2019 Eating (FIM): 6 Eating (QC): 6 Groomin Oral Hygiene (QC): 6 Bathing(FIM): 6 Bathing Location: L Arm, R Arm, L Upper Leg, R Upper Leg, L Lower Leg (including foot), R Lower Leg (including foot), Chest, Abdomen, Buttocks, Perineal Area Shower/Bathe Self (QC): 6 Upper Body Dressing(FIM): 6 Upper Body Dressing (QC): 6 Lower Body Dressing(FIM): 6 Lower Body Dressing (QC): 6 On/Off Footwear (QC): 6 Toileting(FIM): 6 Toileting Hygiene (QC): 6 Transfers (B,C,W/C) (FIM): 6 Toilet/Commode Transfer(FIM): 6 Toilet/Commode Transfer (QC): 6 Shower Transfer(FIM): 6 Additional Goals: 1-Demonstrate ADL Tasks, 2-Verbalize Understanding, 3- ImproveStrength/Natty 1=Demonstrate adherence to instructed precautions during ADL tasks. 2=Patient will verbalize/demonstrate understanding of assistive devices/modif ications for ADL. 3=Patient will improve strength/tolerance for activity to enable patient to perform ADL's. OT Education/Plan Problem List/Assessment Assessment: Decreased Activ Tolerance, Decreased Safety Aware, Decreased UE Strength, Impaired Bed Mobility, Impaired Funct Balance, Impaired I ADL's, Impaired Self-Care Skills pt presents with functional limitations affecting areas of ADL and functional transfers with deficits in the above mention. . pt would benefit from skilled OT Services to increase independence with ADLs/ functional transfer. daughter (Luisana) stated she would like pt to d/c from swing bed to [facility] home secondary to pt fatigue level. Discharge Recommendations Plan/Recommendations: Continue POC Treatment Plan/Plan of Care Treatment,Training & Education: Yes Patient would benefit from OT for education, treatment and training to promote independence in ADL's, mobility, safety and/or upper extremity function for ADL's. Plan of Care: ADL Retraining, Caregiver Training, Concurrent Therapy, Functional Mobility, UE Funct Exercise/Act Treatment Duration: Jan 18, 2019 Frequency: 5 times per week Estimated Hrs Per Day: .25 hour per day Agreement: Yes Rehab Potential: Guarded Time/GCodes Start Time: 12:48 Stop Time: 13:12 Billed Treatment Time ADL 24 minutes, 2 units KENIA WOODSON OT Dec 24, 2018 14:26
--- NOTE | 2018-12-24 14:37 | Pulmonary Progress Note ---
Subjective Time Seen by a Provider: 14:36 Subjective/Events-last exam No complications noted. Sepsis Event Evaluation Height, Weight, BMI Height: 5'1.00" Weight: 109lbs. 9.0oz. 49.207271ug; 20.0 BMI Method:Stated Exam Exam Vital Signs Date Time Temp Pulse Resp B/P (MAP) Pulse Ox O2 Delivery O2 Flow Rate FiO2 12/24/18 13:00 55 12/24/18 09:00 92 Nasal Cannula 3.00 12/24/18 08:00 98.6 74 20 128/60 (82) Nasal Cannula 3.00 12/24/18 07:00 76 12/24/18 04:40 98.2 86 18 145/65 (91) 90 Nasal Cannula 3.00 12/24/18 02:30 93 Nasal Cannula 3.00 12/24/18 01:00 87 12/24/18 00:37 97.8 77 18 147/74 (98) 93 Nasal Cannula 3.00 12/23/18 21:00 95 Nasal Cannula 3.00 12/23/18 20:02 92 Nasal Cannula 3.00 12/23/18 19:00 86 12/23/18 18:00 98.1 71 18 137/73 (94) Nasal Cannula 3.00 12/23/18 14:50 92 Nasal Cannula 3.00 I & O 12/24/18 07:00 Intake Total 600 ml Output Total 1075 ml Balance -475 ml Height & Weight Height: 5'1.00" Weight: 109lbs. 9.0oz. 49.755140jx; 20.0 BMI Method:Stated General Appearance: No Apparent Distress, WD/WN, Anxious HEENT: PERRL/EOMI, Pharynx Normal Neck: Full Range of Motion, Normal Inspection, Non Tender, Supple Respiratory: Chest Non Tender, No Respiratory Distress, Decreased Breath Sounds Cardiovascular: Regular Rate, Rhythm, No Edema Capillary Refill: Less Than 3 Seconds Gastrointestinal: normal bowel sounds, non tender, soft Extremity: Normal Capillary Refill, Normal Inspection, No Pedal Edema Neurologic/Psychiatric: Alert, Oriented x3 Skin: Normal Color Results Lab Laboratory Tests 12/23/18 04:50 12/24/18 04:00 Assessment/Plan Assessment/Plan Pneumonia with left pleural effusion -Continue Merrem and repeat CXR -Left pleural fluid is neg cytology -check villanueva cultures -(Echocardiogram done 12/11/18 EF 55-65% Left atrial dilatation 4.2cm, MVP with mod MR, mod-sev TR PA 50-55mmHg, continue to monitor) Pulmonary HTN -monitor for now 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
[2018-12-24 15:37] VITALS: BP 118/72
--- NOTE | 2018-12-24 15:39 | Diagnostic Imaging Report ---
PROCEDURE: CT chest without contrast. TECHNIQUE: Multiple contiguous axial images were obtained through the chest without the use of intravenous contrast. Auto Exposure Controls were utilized during the CT exam to meet ALARA standards for radiation dose reduction. INDICATION: Followup pleural effusions and pulmonary consolidations. COMPARISON: CT chest and abdomen from 12/19/2018. FINDINGS: Lungs and airway: Mixed airspace consolidations and groundglass attenuation in the bilateral upper lobes is stable to mildly progressed since prior exam. Subtotal consolidations within the right lower lobe persist. No improved aeration within the right lower lobe. Increased left basilar dependent opacities. Pleura: Increasing size of right pleural effusion which is now large. Small to moderate left pleural effusion has developed. Heart and mediastinum: Stable left PICC. No axillary lymphadenopathy. Mildly enlarged left lower paratracheal lymph node is unchanged measuring 1.2 cm. No new or enlarging mediastinal lymph nodes. No discrete hilar lymphadenopathy, although assessment is limited without IV contrast. No juxtaphrenic lymphadenopathy. Stable enlargement of cardiac silhouette. No pericardial effusion. Upper abdomen: Potential pericholecystic fluid. Musculoskeletal: No concerning osseous abnormality in the chest. IMPRESSION: 1. Enlarging right and recurrent left pleural effusions. 2. Stable to mild progression of multifocal pulmonary opacities that may be on the basis of asymmetric pulmonary edema and atelectasis from the pleural effusions. Superimposed infection could be present in the appropriate setting. 3. Potential pericholecystic fluid/gallbladder wall thickening. Consider right upper quadrant ultrasound for further characterization. Dictated by: Dictated on workstation # [id number]
--- NOTE | 2018-12-24 16:17 | Diagnostic Imaging Report ---
INDICATION: Shortness of breath. TIME OF EXAM: 2:50 PM. COMPARISON: 12/20/2018. FINDINGS: The left upper extremity PICC line has its tip overlying the SVC/right atrial junction. The heart remains enlarged. Bibasilar infiltrates and pleural effusions persist. There is some persistent perhaps mild worsening infiltrate in the right upper lobe. No pneumothorax is seen. IMPRESSION: Bilateral infiltrates and effusions, slightly increased in the right upper lobe when compared with the examination from 4 days earlier. Dictated by: Dictated on workstation # [id number]
[2018-12-24] MEDS ORDERED: FUROSEMIDE 40 MG/4 ML INJ (LASIX) IVP NR (16:45)
[2018-12-24] MEDS ORDERED: FLUCONAZOLE 200 MG/100 ML 50 ML, SYRINGE-IVPB 1 SYRINGE IV NR ×2 (16:45)
--- NOTE | 2018-12-24 19:13 | Progress Note-Cardiology ---
Cardiology SOAP Progress Note Subjective: Gen weakness and malaise and diminished appetite No cp or palp or syncope Shortness of breath with exertion Objective: I&O/Vital Signs 12/24/18 12/24/18 12/24/18 12/24/18 08:00 09:00 12:00 13:00 Temp 98.6 98.4 Pulse 74 58 55 Resp 20 18 B/P (MAP) 128/60 (82) 118/65 (82) Pulse Ox 92 O2 Delivery Nasal Cannula Nasal Cannula Nasal Cannula O2 Flow Rate 3.00 3.00 3.00 12/24/18 12/24/18 15:18 15:37 Temp 97.7 Pulse 65 Resp 20 B/P (MAP) 118/72 (87) Pulse Ox 90 92 O2 Delivery Nasal Cannula Nasal Cannula O2 Flow Rate 3.00 3.00 12/24/18 00:00 Intake Total 500 ml Output Total 775 ml Balance -275 ml Weight (Pounds): 109 Weight (Ounces): 9.0 Weight (Calculated Kilograms): 49.364685 Constitutional: AAO x 3, well-developed, well-nourished Respiratory: No accessory muscle use; other (fair to good bilat air entry, diminished at the bases) Cardiovascular: irregularly irregular, S1 and S2, systolic murmur (2/6 SOPHIE at card base) Gastrointestional: No tender; soft; No guarding, No rebound; audible bowel sounds Extremities: swelling (mild to mod bilat leg swelling); No clubbing, No cyanosis Neurologic/Psychiatric: oriented x 3, other (seems to move all limbs, power is bilaterally diminished but there does not appear to be foucal weakness), grossly intact Skin: No rash on exposed areas, No ulcerations on exposed areas Results/Procedures: Labs Laboratory Tests 12/24/18 04:00: White Blood Count 15.2H, Red Blood Count 3.34L, Hemoglobin 10.5L, Hematocrit 30L , Mean Corpuscular Volume 91, Mean Corpuscular Hemoglobin 31, Mean Corpuscular Hemoglobin Concent 35, Red Cell Distribution Width 14.2, Platelet Count 237, Mean Platelet Volume 9.7, Sodium Level 127L, Potassium Level 3.8, Chloride Level 99, Carbon Dioxide Level 20L, Anion Gap 8, Blood Urea Nitrogen 18, Creatinine 0.75, Estimat Glomerular Filtration Rate > 60, BUN/Creatinine Ratio 24, Glucose Level 93, Calcium Level 7.7L, Corrected Calcium 9.2, Magnesium Level 1.6L, Total Bilirubin 0.6, Aspartate Amino Transf (AST/SGOT) 31, Alanine Aminotransferase (ALT/SGPT) 44, Alkaline Phosphatase 49, Total Protein 4.2L, Albumin 2.1L 12/24/18 13:25: Urine Color YELLOW, Urine Clarity SLIGHTLY CLOUDY, Urine pH 6.5, Urine Specific [place] 1.020, Urine Protein 3+H, Urine Glucose (UA) NEGATIVE, Urine Ketones 1+H , Urine Nitrite NEGATIVE, Urine Bilirubin NEGATIVE, Urine Urobilinogen NORMAL, Urine Leukocyte Esterase 3+H, Urine RBC (Auto) 5+H, Urine RBC TNTCH, Urine WBC 50-100H, Urine Squamous Epithelial Cells NONE, Urine Crystals NONE, Urine Bacteria NEGATIVE, Urine Casts NONE, Urine Mucus NEGATIVE, Urine Culture Indicated YES Laboratory Tests 12/23/18 04:50 12/24/18 04:00 A/P: Assessment: Gen weakness and malaise, multifactorial Pneumonia and parapneumonic effusion Hyponatremia, 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 Bahena Anxiety and depression, managed by primary care physician GERD, by history Plan: * Management is complex, given multiple comorbidities * Currently on 3 rate-controlling agents. Apparently, has been on these relatively chronically and has tolerated them well * Continue stroke prophylaxis with apixaban * Monitor labs SHAWN KRUGER MD FACP FACC CCDS Dec 24, 2018 19:13
[2018-12-24 19:48] VITALS: BP 121/68
[2018-12-24] MEDS: LORazepam 0.5 MG (ATIVAN) TABLET PO SCH (21:41)
[2018-12-24] MEDS: DULoxetine 20 MG (CYMBALTA) CAP PO SCH (21:41)
[2018-12-24] MEDS: PANTOPRAZOLE 40 MG (PROTONIX) TAB PO SCH (21:42)
[2018-12-24] MEDS: POLYETHYLENE GLYCOL 17 GM (MIRALAX) PACK PO SCH (21:43)
[2018-12-24] MEDS: DOCUSATE SODIUM 100 MG (COLACE) CAP PO SCH (21:49)
[2018-12-25] VITALS (7 sets, daily range): BP systolic 111–136; BP diastolic 54–78
[2018-12-25] MEDS: MEROPENEM 500 MG in WATER (STERILE) FOR INJECTION 10 ML IV SCH ×5 (00:16→23:49)
[2018-12-25] MEDS: DILTIAZEM 30 MG (CARDIZEM) TAB PO SCH ×5 (00:16→23:49)
[2018-12-25] MEDS: metroNIDAZOLE 500MG/100ML IVPB 100 ML IV SCH (05:41)
[2018-12-25] MEDS: CALCIUM CARB + VIT D 600 MG (CALCARB + D) TAB PO SCH ×3 (05:41→17:59)
[2018-12-25] MEDS: LEVOTHYROXINE 75 MCG (LEVOTHROID) TABLET PO SCH (05:41)
--- NOTE | 2018-12-25 05:56 | Pulmonary Progress Note ---
Subjective Time Seen by a Provider: 05:55 Subjective/Events-last exam PT feels more fatigued. Sepsis Event Evaluation Height, Weight, BMI Height: 5'1.00" Weight: 109lbs. 9.0oz. 49.904184ai; 20.0 BMI Method:Stated Exam Exam Vital Signs Date Time Temp Pulse Resp B/P (MAP) Pulse Ox O2 Delivery O2 Flow Rate FiO2 12/25/18 05:28 97.4 81 16 136/70 (92) 90 Nasal Cannula 3.00 12/25/18 01:00 63 12/25/18 00:07 97.9 77 20 132/76 (94) 94 Nasal Cannula 3.00 12/24/18 21:00 Nasal Cannula 3.00 12/24/18 19:48 97.5 79 20 121/68 (85) 97 Nasal Cannula 3.00 12/24/18 19:39 92 Nasal Cannula 3.00 12/24/18 19:00 75 12/24/18 15:37 97.7 65 20 118/72 (87) 92 Nasal Cannula 3.00 12/24/18 15:18 90 Nasal Cannula 3.00 12/24/18 13:00 55 12/24/18 12:00 98.4 58 18 118/65 (82) Nasal Cannula 3.00 12/24/18 09:00 92 Nasal Cannula 3.00 12/24/18 08:00 98.6 74 20 128/60 (82) Nasal Cannula 3.00 12/24/18 07:00 76 I & O 12/25/18 07:00 Intake Total 810 ml Output Total 1100 ml Balance -290 ml Height & Weight Height: 5'1.00" Weight: 109lbs. 9.0oz. 49.902085rn; 20.0 BMI Method:Stated General Appearance: No Apparent Distress, WD/WN, Anxious HEENT: PERRL/EOMI, Pharynx Normal Neck: Full Range of Motion, Normal Inspection, Non Tender, Supple Respiratory: Chest Non Tender, No Respiratory Distress, Decreased Breath Sounds Cardiovascular: Regular Rate, Rhythm, No Edema Capillary Refill: Less Than 3 Seconds Gastrointestinal: normal bowel sounds, non tender, soft Extremity: Normal Capillary Refill, Normal Inspection, No Pedal Edema Neurologic/Psychiatric: Alert, Oriented x3 Skin: Normal Color Results Lab Laboratory Tests 12/24/18 04:00 Assessment/Plan Assessment/Plan Pneumonia with left pleural effusion -Merrem -CT chest reviewed -Give lasix 40mg IV daily -repeat labs pending -Left pleural fluid is neg cytology -check villanueva cultures -(Echocardiogram done 12/11/18 EF 55-65% Left atrial dilatation 4.2cm, MVP with mod MR, mod-sev TR PA 50-55mmHg, continue to monitor) Pulmonary HTN -monitor for now 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
[2018-12-25] MEDS ORDERED: KCL 10 MEQ TAB (MICRO K) PO NR (06:00)
[2018-12-25] MEDS ORDERED: FUROSEMIDE 40 MG/4 ML INJ (LASIX) IVP NR (06:00)
[2018-12-25] MEDS: RT-ALBUTEROL/IPRATROPIUM 3 ML (DUONEB) VIAL INH SCH ×3 (07:02→21:52)
[2018-12-25] MEDS: FLUTICASONE NASAL SPRAY (FLONASE) 16 GM BTL NS SCH (08:08)
[2018-12-25] MEDS: SODIUM CHLORIDE 1 GM TAB (NON-FORMULARY) PO SCH (08:08)
[2018-12-25] MEDS: SUCRALFATE 1 GM (CARAFATE) TAB PO SCH ×3 (08:09→20:04)
[2018-12-25] MEDS: ARTIFICAL TEARS 0.4 ML UNIT DOSE (REFRESH PLUS) OU SCH ×4 (08:09→20:04)
[2018-12-25] MEDS: meTOprolol SUCCINATE 100 MG (TOPROL XL) TAB PO SCH (08:09)
[2018-12-25] MEDS: LACTOBACILLUS ACIDOPHILUS (PROBIOTIC) CAPSULE PO SCH (08:09)
[2018-12-25] MEDS: APIXABAN 2.5 MG (ELIQUIS) TABLET PO SCH ×2 (08:09→20:03)
[2018-12-25] MEDS: SIMETHICONE 80 MG (MYLICON) CHEW PO SCH ×4 (08:09→20:04)
[2018-12-25] MEDS: BRIMONIDINE TART OS SCH ×2 (08:10→20:04)
[2018-12-25] MEDS: Loteprednol Etabonate (Lotemax) OD SCH ×2 (08:10→20:04)
[2018-12-25] MEDS: NYSTATIN ORAL SUSP 5 ML UDC PO SCH (08:10)
[2018-12-25] MEDS: BRINZOLAMIDE OS SCH ×2 (08:10→20:04)
[2018-12-25] MEDS: DULoxetine 20 MG (CYMBALTA) CAP PO SCH ×2 (08:15→20:04)
[2018-12-25] MEDS: FLUCONAZOLE 200 MG/100 ML 50 ML, EMPTY IV BAG (PVC) 1 EA IV SCH ×2 (08:15)
--- NOTE | 2018-12-25 08:29 | Cardiology Progress Note ---
Subjective Date Seen by Provider: Dec 25, 2018 Time Seen by Provider: 08:25 Subjective/Events-last exam patient is laying down in bed, feeling better, breathing better, still having generalized weakness. Review of Systems General: No Chills, No Night Sweats; Fatigue, Malaise; No Appetite, No Other HEENT: No Head Aches, No Visual Changes, No Eye Pain, No Ear Pain, No Dysphasia, No Sinus Congestion, No Post Nasal Drip, No Sore Throat, No Other Pulmonary: Dyspnea; No Cough, No Pleuritic Chest Pain, No Other Cardiovascular: Edema; No: Chest Pain, Palpitations, Orthopnea, Paroxysmal Noc. Dyspnea, Lt Headedness, Other Objective-Cardiology Exam Last Set of Vital Signs Vital Signs 12/22/18 12/25/18 20:14 08:00 Temp 97.2 Pulse 77 Resp 18 B/P (MAP) 119/64 (82) Pulse Ox 94 O2 Delivery Nasal Cannula O2 Flow Rate 3.00 FiO2 32 Capillary Refill : Less Than 3 SecondsLess Than 3 Seconds I&O Intake and Output 12/25/18 00:00 Intake Total 910 ml Output Total 1400 ml Balance -490 ml Intake Oral 640 ml IV Total 270 ml Output Urine Total 1400 ml # Bowel Movements 2 General: Alert, Oriented X3, Cooperative HEENT: Atraumatic, Other (RIGHT EYE CLOUDY, LEFT PUPIL ROUND AND REACTIVE) Neck: Supple Lungs: Clear to Auscultation, Normal Air Movement Heart: Normal S1, Normal S2, Other (IRREGULARLY IRREGULAR WITH CONTROLLED RATE) Abdomen: No Tenderness, Other (HYPERACTIVE BOWEL SOUNDS) Extremities: No Clubbing, Other (EDEMA) Neuro: Normal Speech Psych/Mental Status: Mental Status NL, Other (FLAT AFFECT) Results Lab Laboratory Tests Test 12/24/18 13:25 Range/Units Urine Color YELLOW Urine Clarity SLIGHTLY CLOUDY Urine pH 6.5 5-9 Urine Specific [place] 1.020 1.016-1.022 Urine Protein 3+ H NEGATIVE Urine Glucose (UA) NEGATIVE NEGATIVE Urine Ketones 1+ H NEGATIVE Urine Nitrite NEGATIVE NEGATIVE Urine Bilirubin NEGATIVE NEGATIVE Urine Urobilinogen NORMAL NORMAL MG/DL Urine Leukocyte Esterase 3+ H NEGATIVE Urine RBC (Auto) 5+ H NEGATIVE Urine RBC TNTC H /HPF Urine WBC 50-100 H /HPF Urine Squamous Epithelial Cells NONE /HPF Urine Crystals NONE /LPF Urine Bacteria NEGATIVE /HPF Urine Casts NONE /LPF Urine Mucus NEGATIVE /LPF Urine Culture Indicated YES A/P-Cardiology Admission Diagnosis Pneumonia Pleural effusion Chronic atrial fibrillation Hyponatremia Assessment/Plan Generalized weakness and loss of energy, debility, receiving physical therapy, improving slowly. Hyponatremia, continue to monitor Shortness of breath, bilateral pleural effusion, status post thoracentesis, received Lasix today, continue to monitor Persistent atrial fibrillation, heart rate is controlled, we'll continue to monitor closely due to the history of tachybradycardia episode. 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 managed by Dr. Singh Patient had a SPECT perfusion study done in July 2015 at [facility] reported to have normal left ventricular function with ejection fraction 56 percent and normal LV perfusion. I will continue monitoring History of tachy/bradycardia episodes with episode of bradycardia noted on Holter monitor in 2014, discussed pacemaker implantation with her clothing manager in the past and decision was made to monitor closely, tolerating current medication well. Continue to monitor [id number] score is 4, yearly risk of stroke without oral anticoagulation is 4 percent. 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 Continue to monitor. Nonobstructive carotid artery stenosis-most recent carotid duplex done September 2017, continue to monitor. Hypothyroidism- management per Dr. Bahena Anxiety, depression, managed by primary care physician GERMAN Clinical Quality Measures DVT/VTE Risk/Contraindication: Risk Factor Score Per Nursin MICHAEL HALL MD Dec 25, 2018 08:29
--- NOTE | 2018-12-25 08:43 | Progress Note ---
Objective Exam Last Set of Vital Signs Vital Signs Date Time Temp Pulse Resp B/P (MAP) Pulse Ox O2 Delivery O2 Flow Rate FiO2 12/25/18 08:00 97.2 77 18 119/64 (82) 94 Nasal Cannula 3.00 12/22/18 20:14 32 Capillary Refill : Less Than 3 SecondsLess Than 3 Seconds I&O Intake and Output 12/25/18 00:00 Intake Total 910 ml Output Total 1400 ml Balance -490 ml Intake Oral 640 ml IV Total 270 ml Output Urine Total 1400 ml # Bowel Movements 2 General: Alert, Oriented X3, Cooperative HEENT: Atraumatic, Other (RIGHT EYE CLOUDY, LEFT PUPIL ROUND AND REACTIVE) Neck: Supple Lungs: Clear to Auscultation, Normal Air Movement Heart: Normal S1, Normal S2, Other (IRREGULARLY IRREGULAR WITH CONTROLLED RATE) Abdomen: No Tenderness, Other (HYPERACTIVE BOWEL SOUNDS) Extremities: No Clubbing, Other (EDEMA) Neuro: Normal Speech Psych/Mental Status: Mental Status NL, Other (FLAT AFFECT) Results Lab Laboratory Tests 12/24/18 13:25: Urine Color YELLOW, Urine Clarity SLIGHTLY CLOUDY, Urine pH 6.5, Urine Specific [place] 1.020, Urine Protein 3+H, Urine Glucose (UA) NEGATIVE, Urine Ketones 1+H , Urine Nitrite NEGATIVE, Urine Bilirubin NEGATIVE, Urine Urobilinogen NORMAL, Urine Leukocyte Esterase 3+H, Urine RBC (Auto) 5+H, Urine RBC TNTCH, Urine WBC 50-100H, Urine Squamous Epithelial Cells NONE, Urine Crystals NONE, Urine Bacteria NEGATIVE, Urine Casts NONE, Urine Mucus NEGATIVE, Urine Culture Indicated YES Assessment/Plan Assessment/Plan Assess & Plan/Chief Complaint HYPONATREMIA ATRIAL FIBRILLATION HYPERTENSION HYPOTHYROIDISM CHRONIC ANXIETY HYPERLIPIDEMIA ESOPHAGEAL REFLUX PLEURAL EFFUSION PNEUMONIA INSOMNIA DEPRESSION HYPONATREMIA -INITIALLY REPLACED WITH IV FLUIDS, THEN SHE WAS STARTED ON SODIUM CHLORIDE TAB - CONTINUE TO MONITOR SODIUM LEVELS. PLEURAL EFFUSION - WITH NODULARITY ON CT SCAN OF HILUM - AND EVIDENCE OF PNEUMONIC PROCESS - ADVISED PT AND HER DTR OF CT SCAN FINDINGS REPEAT CT SCAN TO BE DONE AGAIN TODAY TO EVALUATE THE NODULARITY SEEN ON PREVIOUS CT SCAN. ATRIAL FIBRILLATION - STABLE ON DIGOXIN, DILTIAZEM, METOPROLOL AND ELIQUIS HYPERTENSION - RESUMED HOME REGIMEN HYPOTHYROIDISM - CONTINUE WITH CURRENT REGIMEN - TSH AND FREE T4 ARE STABLE. CHRONIC ANXIETY - SUPPORTIVE CARE HYPERLIPIDEMIA - CONTINUE TO HOLD STATIN AT THIS TIME ESOPHAGEAL REFLUX - ON PANTOPRAZOLE AND SCHEDULE CARAFATE STARTED PHYSICAL THERAPY DUE TO HER WEAKNESS - CONTINUE WITH PHYSICAL THERAPY - PT FATIGUED, BUT NEEDS THERAPY FOR STRENGTHENING PRIOR TO A TRANSFER OUT OF HOSPITAL TO SNF THEN HOPEFULLY TO ASSISTED LIVING AT [facility]. DEPRESSION -AND ANXIETY - RESTARTED SSRI,SYMPTOMS WORSE TODAY - STOP CELEXA AND START ON CYMBALTA 20MG BID. INSOMNIA - UNCONTROLLED - STOPPED XANAX, STARTED ON ATIVAN. ASKING STAFF TO STOP INTERRUPTION OF SLEEP MUCH POSSIBLE SO THAT SHE CAN HAVE SOME RECOVERY FROM HER ILLNESS WITH MUCH NEEDED REST. PLANNING ON EVENTUAL TRANSFER TO [place] AT THE END OF THIS WEEK - DTR LOOKING AT [facility]. Clinical Quality Measures DVT/VTE Risk/Contraindication: Risk Factor Score Per Nursin JUNIOR SELLERS MD Dec 25, 2018 08:43
[2018-12-25 09:13] LABS: HEMOGLOBIN 10.8 G/DL (11.5-16.0); MEAN PLATELET VOLUME 9.7 FL (7.4-10.4); RED CELL DISTRIBUTION WIDTH 14.9 % (10.0-14.5); WHITE BLOOD COUNT 15.3 10^3/uL (4.3-11.0)
[2018-12-25 09:44] LABS: ALANINE AMINOTRANSFERASE 42 U/L (0-55); ALBUMIN 2.3 GM/DL (3.2-4.5); ALKALINE PHOSPHATASE 54 U/L (40-136); BILIRUBIN,TOTAL 0.6 MG/DL (0.1-1.0); BUN/CREATININE RATIO 23; CARBON DIOXIDE 21 MMOL/L (21-32); CHLORIDE 101 MMOL/L (98-107); CREATININE SERUM 0.69 MG/DL (0.60-1.30); GFR ESTIMATED > 60; GLUCOSE 103 MG/DL (70-105); MAGNESIUM 1.3 MG/DL (1.8-2.4); PHOSPHORUS 2.4 MG/DL (2.3-4.7); POTASSIUM 3.1 MMOL/L (3.6-5.0); SODIUM 130 MMOL/L (135-145); TOTAL PROTEIN 4.6 GM/DL (6.4-8.2)
--- NOTE | 2018-12-25 11:48 | Physical Therapy Daily Note ---
PT Daily Note-Current Subjective Patient is in bed and agrees to PT. Family present. Pain Numeric Pain Scale: 0-No Pain Location: No Pain Reported Mental Status Patient Orientation: Normal For Age Attachments: Oxygen, Mcgee Catheter Transfers Therapy Code Descriptions/Definitions Functional [place] Measure: 0=Not Assessed/NA 4=Minimal Assistance 1=Total Assistance 5=Supervision or Setup 2=Maximal Assistance 6=Modified [place] 3=Moderate Assistance 7=Complete [place]k Therapy Quality Codes: 6 Independent with activity with or without an assistive device 5 Patient requires set up or clean up by helper. Patient completes activity by themselves 4 Supervision or touching assist (CGA). [place] provide cues , steadying assist 3 The helper provides less than half the effort to complete the activity 2 The helper provides more than half the effort to complete the activity 1 Dependent. The helper does all the effort to complete an activity 7 Patient refused to complete or attempt activity 9 The patient did not perform the activity before the current illness or inju ry 88 Not attempted due to Medical conditions or safety concerns Transfers (B, C, W/C) (FIM): 5 Scootin Rollin Roll Left to Right (QC): 5 Supine to/from Sit: 5 Sit to Lying (QC): 5 Sit to Stand (QC): 5 Chair/Rzy-mv-Qqthl Xfer(QC): 5 Bed to/from Chair: 5 Weight Bearing Right Lower Extremity: Right Full Weight Bearing Left Lower Extremity: Left Full Weight Bearing Gait Training Does the Patient Walk?: Yes Gait (FIM): 2 Distance (FIM): 7=013-78 ft Distance: 50' Walk 10 feet (QC): 4 Walk 50 ft with 2 Turns(QC): 4 Walk 150 ft (QC): 9 Gait Level of Assist: 4 Gait Persons Needed: 1 Gait Assistive Device: FWW 4 standing recovery periods due to SOA with minimal activity Exercises Supine Ex: Ankle pumps, Quad Set, Heel Slides, Straight leg raise Supine Reps: 10 Assessment Patient requires time to complete all functional tasks due to fatigue and SOA. Patient is up in recliner with needs met. PT Short Term Goals Short Term Goals Transfers (B,C,W/C) (FIM): 5 PT Ammunition Storekeeper Goals Ammunition Storekeeper Goals PT Residential Goals Time Frame: Jan 05, 2019 Transfers (B,C,W/C) (FIM): 5 Sit to Lying (QC): 5 Lying-Sitting on Side/Bed(QC): 5 Sit to Stand (QC): 5 Rollin Roll Left to Right (QC): 5 Chair/Rmz-yb-Xuewv Xfer(QC): 5 Car Transfer (QC): 5 Does the Patient Walk: Yes Gait (FIM): 5 Gait distance (FIM): 3=150 ft Distance: 150' Walk 10 feet (QC): 5 Walk 10ft-Uneven Surface(QC): 5 Walk 50ft with 2 Turns (QC): 5 Walk 150 ft (QC): 5 Gait Level of Assist: 5 Gait Assistive Device: FWW PT Plan Treatment/Plan Treatment Plan: Continue Plan of Care Treatment Plan: Bed Mobility, Education, Functional Activity Natty, Functional Strength, Gait, Safety, Therapeutic Exercise, Transfers Treatment Duration: Jan 05, 2019 Frequency: 6 times per week Estimated Hrs Per Day: .25 hour per day Patient and/or Family Agrees t: Yes Time/GCodes Time In: 1114 Time Out: 1130 Total Billed Treatment Time: 16 Total Billed Treatment 1 visit FA 16 min RUDDY WILSON PT Dec 25, 2018 11:48
--- NOTE | 2018-12-25 12:23 | NUR ---
CM/SS. [facility] has accepted patient for admission; however, it is a semi-pvt room and is not on the Court where the requested RN covers. Daughter Luisana updated, she plans to tour [facility] again today to see if the positives outweigh negatives of not getting what was requested. Otherwise, [facility] is a second choice. Luisana to inform sheet writer this p.m. of final choice NH. Physician indicates discharge or Monday. CARE Assessment pending.
--- NOTE | 2018-12-25 15:10 | Occupational Ther Daily Note ---
OT Current Status-Daily Note Subjective Pt in bed, agrees to therapy. Pt has no c/o pain, but reports being fatigued this afternoon. Mental Status/Objective Therapy Code Descriptions/Definitions Functional [place] Measure: 0=Not Assessed/NA 4=Minimal Assistance 1=Total Assistance 5=Supervision or Setup 2=Maximal Assistance 6=Modified [place] 3=Moderate Assistance 7=Complete [place] Attachments: Mcgee Catheter ADL-Treatment Pt states she completed sponge bath with assist from nursing this morning. Agrees to grooming tasks, but declined to walk to bathroom. Supine to sit with increased time. Grooming tasks completed seated EOB. Pt brushed teeth and combed hair with set up and increased time. Declined to sit up in chair at this time. Sit to supine with SBA. Pt able to scoot to HOB and reposition with SBA. Pt resting in bed with needs met after session. Therapy Code Descriptions/Definitions Functional [place] Measure: 0=Not Assessed/NA 4=Minimal Assistance 1=Total Assistance 5=Supervision or Setup 2=Maximal Assistance 6=Modified [place] 3=Moderate Assistance 7=Complete [place] Therapy Quality Codes: 6 Independent with activity with or without an assistive device 5 Patient requires set up or clean up by helper. Patient completes activity by themselves 4 Supervision or touching assist (CGA). [place] provide cues , steadying assist 3 The helper provides less than half the effort to complete the activity 2 The helper provides more than half the effort to complete the activity 1 Dependent. The helper does all the effort to complete an activity 7 Patient refused to complete or attempt activity 9 The patient did not perform the activity before the current illness or injury 88 Not attempted due to Medical conditions or safety concerns Grooming (FIM): 5 Oral Hygiene (QC): 5 OT Short Term Goals Short Term Goals Bathing(FIM): 5 Bathing Location: L Arm, R Arm Upper Body Dressing(FIM): 5 Lower Body Dressing(FIM): 5 Toileting(FIM): 5 Transfers (B,C,W/C) (FIM): 5 Toilet/Commode Transfer(FIM): 5 1=Demonstrate adherence to instructed precautions during ADL tasks. 2=Patient will verbalize/demonstrate understanding of assistive devices/modifications for ADL. 3=Patient will improve strength/tolerance for activity to enable patient to perform ADL's. OT Long-Term Goals Long-Term Goals Time Frame: Jan 18, 2019 Eating (FIM): 6 Eating (QC): 6 Groomin Oral Hygiene (QC): 6 Bathing(FIM): 6 Bathing Location: L Arm, R Arm, L Upper Leg, R Upper Leg, L Lower Leg (including foot), R Lower Leg (including foot), Chest, Abdomen, Buttocks, Perineal Area Shower/Bathe Self (QC): 6 Upper Body Dressing(FIM): 6 Upper Body Dressing (QC): 6 Lower Body Dressing(FIM): 6 Lower Body Dressing (QC): 6 On/Off Footwear (QC): 6 Toileting(FIM): 6 Toileting Hygiene (QC): 6 Transfers (B,C,W/C) (FIM): 6 Toilet/Commode Transfer(FIM): 6 Toilet/Commode Transfer (QC): 6 Shower Transfer(FIM): 6 Additional Goals: 1-Demonstrate ADL Tasks, 2-Verbalize Understanding, 3- ImproveStrength/Natty 1=Demonstrate adherence to instructed precautions during ADL tasks. 2=Patient will verbalize/demonstrate understanding of assistive devices/modifications for ADL. 3=Patient will improve strength/tolerance for activity to enable patient to perform ADL's. OT Education/Plan Discharge Recommendations Plan/Recommendations: Continue POC Treatment Plan/Plan of Care Patient would benefit from OT for education, treatment and training to promote independence in ADL's, mobility, safety and/or upper extremity function for ADL's. Plan of Care: ADL Retraining, Caregiver Training, Concurrent Therapy, Functional Mobility, UE Funct Exercise/Act Treatment Duration: Jan 18, 2019 Frequency: 5 times per week Estimated Hrs Per Day: .25 hour per day Agreement: Yes Rehab Potential: Guarded Time/GCodes Start Time: 14:07 Stop Time: 14:26 Total Time Billed (hr/min): 19 Billed Treatment Time 1 visit, ADL(19minutes) DEBI WEST OT Dec 25, 2018 15:10
[2018-12-25] MEDS: PANTOPRAZOLE 40 MG (PROTONIX) TAB PO SCH (20:03)
[2018-12-25] MEDS: LORazepam 0.5 MG (ATIVAN) TABLET PO SCH (20:03)
[2018-12-25] MEDS: DOCUSATE SODIUM 100 MG (COLACE) CAP PO SCH (20:04)
[2018-12-25] MEDS: POLYETHYLENE GLYCOL 17 GM (MIRALAX) PACK PO SCH (20:04)
[2018-12-26] MEDS: DIGOXIN 0.125 MG (LANOXIN) TAB PO SCH (03:21)
[2018-12-26 04:50] VITALS: BP 139/67
[2018-12-26] MEDS: MEROPENEM 500 MG in WATER (STERILE) FOR INJECTION 10 ML IV SCH (05:45)
[2018-12-26] MEDS: DILTIAZEM 30 MG (CARDIZEM) TAB PO SCH ×3 (05:45→18:03)
[2018-12-26] MEDS: LEVOTHYROXINE 75 MCG (LEVOTHROID) TABLET PO SCH (05:45)
[2018-12-26 06:32] LABS: HEMOGLOBIN 10.7 G/DL (11.5-16.0); RED CELL DISTRIBUTION WIDTH 14.6 % (10.0-14.5); WHITE BLOOD COUNT 12.9 10^3/uL (4.3-11.0)
[2018-12-26 06:58] LABS: BUN/CREATININE RATIO 24; CALCIUM 7.7 MG/DL (8.5-10.1); CARBON DIOXIDE 22 MMOL/L (21-32); CHLORIDE 97 MMOL/L (98-107); CREATININE SERUM 0.72 MG/DL (0.60-1.30); GFR ESTIMATED > 60; GLUCOSE 76 MG/DL (70-105); MAGNESIUM 1.5 MG/DL (1.8-2.4); PHOSPHORUS 2.2 MG/DL (2.3-4.7); POTASSIUM 3.8 MMOL/L (3.6-5.0); SODIUM 126 MMOL/L (135-145)
[2018-12-26 08:00] VITALS: BP 142/77
--- NOTE | 2018-12-26 08:47 | Progress Note ---
Objective Exam Last Set of Vital Signs Vital Signs Date Time Temp Pulse Resp B/P (MAP) Pulse Ox O2 Delivery O2 Flow Rate FiO2 12/26/18 07:42 Nasal Cannula 3.00 12/26/18 07:00 71 12/26/18 04:50 97.6 16 139/67 (91) 94 12/22/18 20:14 32 Capillary Refill : Less Than 3 SecondsLess Than 3 Seconds I&O Intake and Output 12/26/18 00:00 Intake Total 1070 ml Output Total 1950 ml Balance -880 ml Intake Oral 1020 ml IV Total 50 ml Output Urine Total 1950 ml # Bowel Movements 1 General: Alert, Oriented X3, Cooperative HEENT: Atraumatic, Other (RIGHT EYE CLOUDY, LEFT PUPIL ROUND AND REACTIVE) Neck: Supple Lungs: Clear to Auscultation, Normal Air Movement Heart: Normal S1, Normal S2, Other (IRREGULARLY IRREGULAR WITH CONTROLLED RATE) Abdomen: No Tenderness, Other (HYPERACTIVE BOWEL SOUNDS) Extremities: No Clubbing, Other (EDEMA) Neuro: Normal Speech Psych/Mental Status: Mental Status NL, Other (FLAT AFFECT) Results Lab Laboratory Tests 12/25/18 08:55: White Blood Count 15.3H, Red Blood Count 3.55L, Hemoglobin 10.8L, Hematocrit 32L , Mean Corpuscular Volume 91, Mean Corpuscular Hemoglobin 30, Mean Corpuscular Hemoglobin Concent 33, Red Cell Distribution Width 14.9H, Platelet Count 272, Mean Platelet Volume 9.7, Sodium Level 130L, Potassium Level 3.1L, Chloride Level 101, Carbon Dioxide Level 21, Anion Gap 8, Blood Urea Nitrogen 16, Creatinine 0.69, Estimat Glomerular Filtration Rate > 60, BUN/Creatinine Ratio 23, Glucose Level 103, Calcium Level 7.0L, Corrected Calcium 8.4L, Phosphorus Level 2.4, Magnesium Level 1.3L, Total Bilirubin 0.6, Aspartate Amino Transf (AST/SGOT) 30, Alanine Aminotransferase (ALT/SGPT) 42, Alkaline Phosphatase 54, B-Type Natriuretic Peptide 129.3H, Total Protein 4.6L, Albumin 2.3L 12/26/18 06:10: White Blood Count 12.9H, Red Blood Count 3.50L, Hemoglobin 10.7L, Hematocrit 32L , Mean Corpuscular Volume 91, Mean Corpuscular Hemoglobin 31, Mean Corpuscular Hemoglobin Concent 33, Red Cell Distribution Width 14.6H, Platelet Count 255, Mean Platelet Volume 10.0 Microbiology 12/24/18 Urine Culture - Final, Complete NO GROWTH Assessment/Plan Assessment/Plan Assess & Plan/Chief Complaint HYPONATREMIA ATRIAL FIBRILLATION HYPERTENSION HYPOTHYROIDISM CHRONIC ANXIETY HYPERLIPIDEMIA ESOPHAGEAL REFLUX PLEURAL EFFUSION PNEUMONIA INSOMNIA DEPRESSION HYPONATREMIA -INITIALLY REPLACED WITH IV FLUIDS, THEN SHE WAS STARTED ON SODIUM CHLORIDE TAB - CONTINUE TO MONITOR SODIUM LEVELS. PLEURAL EFFUSION - WITH NODULARITY ON CT SCAN OF HILUM - AND EVIDENCE OF PNEUMONIC PROCESS - ADVISED PT AND HER DTR OF CT SCAN FINDINGS REPEAT CT SCAN TO BE DONE AGAIN TODAY TO EVALUATE THE NODULARITY SEEN ON PREVIOUS CT SCAN. ATRIAL FIBRILLATION - STABLE ON DIGOXIN, DILTIAZEM, METOPROLOL AND ELIQUIS HYPERTENSION - RESUMED HOME REGIMEN HYPOTHYROIDISM - CONTINUE WITH CURRENT REGIMEN - TSH AND FREE T4 ARE STABLE. CHRONIC ANXIETY - SUPPORTIVE CARE HYPERLIPIDEMIA - CONTINUE TO HOLD STATIN AT THIS TIME ESOPHAGEAL REFLUX - ON PANTOPRAZOLE AND SCHEDULE CARAFATE STARTED PHYSICAL THERAPY DUE TO HER WEAKNESS - CONTINUE WITH PHYSICAL THERAPY - PT FATIGUED, BUT NEEDS THERAPY FOR STRENGTHENING PRIOR TO A TRANSFER OUT OF HOSPITAL TO SNF THEN HOPEFULLY TO ASSISTED LIVING AT [facility]. DEPRESSION -AND ANXIETY - RESTARTED SSRI,SYMPTOMS WORSE TODAY - STOP CELEXA AND START ON CYMBALTA 20MG BID. INSOMNIA - UNCONTROLLED - STOPPED XANAX, STARTED ON ATIVAN. ASKING STAFF TO STOP INTERRUPTION OF SLEEP MUCH POSSIBLE SO THAT SHE CAN HAVE SOME RECOVERY FROM HER ILLNESS WITH MUCH NEEDED REST. PLANNING ON EVENTUAL TRANSFER TO CUSTODIAL AT THE END OF THIS WEEK - DTR LOOKING AT [facility]. Clinical Quality Measures DVT/VTE Risk/Contraindication: Risk Factor Score Per Nursin JUNIOR SELLERS MD Dec 26, 2018 08:47
--- NOTE | 2018-12-26 08:59 | Physical Therapy Daily Note ---
PT Daily Note-Current Subjective Patient in bed pre tx, agrees to PT, has no complaints of pain. Patient needs to have a BM, she goes into the restroom with family member and then ambulates to a recliner. Appearance Patient in recliner post tx with nurse call, phone, tray, all needs met, family in the room. Mental Status Patient Orientation: Person Attachments: Oxygen Transfers Therapy Code Descriptions/Definitions Functional [place] Measure: 0=Not Assessed/NA 4=Minimal Assistance 1=Total Assistance 5=Supervision or Setup 2=Maximal Assistance 6=Modified [place] 3=Moderate Assistance 7=Complete [place] Therapy Quality Codes: 6 Independent with activity with or without an assistive device 5 Patient requires set up or clean up by helper. Patient completes activity by themselves 4 Supervision or touching assist (CGA). [place] provide cues , steadying assist 3 The helper provides less than half the effort to complete the activity 2 The helper provides more than half the effort to complete the activity 1 Dependent. The helper does all the effort to complete an activity 7 Patient refused to complete or attempt activity 9 The patient did not perform the activity before the current illness or injury 88 Not attempted due to Medical conditions or safety concerns Transfers (B, C, W/C) (FIM): 4 Scootin Rollin Supine to/from Sit: 4 Sit to/from Stand: 4 Bed to/from Chair: 4 Cues for hand placement and safety. Min assist for supine to sit. Weight Bearing Right Lower Extremity: Right Full Weight Bearing Left Lower Extremity: Left Full Weight Bearing Gait Training Gait (FIM): 2 Distance: 50' Gait Level of Assist: 4 Gait Persons Needed: 1 Gait Assistive Device: FWW CGA, cues for purse lip breathing, slow ambulation, occasional standing rest break. Treatments bed mobility and transfers, ambulation, toilet transfer Assessment Current Status: Fair Progress slowly improving endurance PT Short Term Goals Short Term Goals Transfers (B,C,W/C) (FIM): 5 PT Sales Mgr Goals Jail Goals PT Jail Goals Time Frame: Jan 05, 2019 Transfers (B,C,W/C) (FIM): 5 Sit to Lying (QC): 5 Lying-Sitting on Side/Bed(QC): 5 Sit to Stand (QC): 5 Rollin Roll Left to Right (QC): 5 Chair/Nev-cr-Gjcso Xfer(QC): 5 Car Transfer (QC): 5 Does the Patient Walk: Yes Gait (FIM): 5 Gait distance (FIM): 3=150 ft Distance: 150' Walk 10 feet (QC): 5 Walk 10ft-Uneven Surface(QC): 5 Walk 50ft with 2 Turns (QC): 5 Walk 150 ft (QC): 5 Gait Level of Assist: 5 Gait Assistive Device: FWW PT Plan Problem List Problem List: Activity Tolerance, Functional Strength, Safety, Balance, Gait, Transfer, Bed Mobility, ROM Treatment/Plan Treatment Plan: Continue Plan of Care Treatment Plan: Bed Mobility, Education, Functional Activity Natty, Functional Strength, Gait, Safety, Therapeutic Exercise, Transfers Treatment Duration: Jan 05, 2019 Frequency: 6 times per week Estimated Hrs Per Day: .25 hour per day Patient and/or Family Agrees t: Yes Safety Risks/Education Patient Education: Gait Training, Transfer Techniques, Correct Positioning, Safety Issues Teaching Recipient: Patient Teaching Methods: Demonstration, Discussion Response to Teaching: Reinforcement Needed Time/GCodes Time In: 0823 Time Out: 0844 Total Billed Treatment Time: 21 Total Billed Treatment 1 visit FA 21' KAJAL HEREDIA PT Dec 26, 2018 08:59
[2018-12-26] MEDS ORDERED: FUROSEMIDE 40 MG/4 ML INJ (LASIX) IVP SCH (09:00)
--- NOTE | 2018-12-26 09:25 | Cardiology Progress Note ---
Subjective Date Seen by Provider: Dec 26, 2018 Time Seen by Provider: 09:23 Subjective/Events-last exam Patient is in a chair, feeling better, no new complaint Review of Systems General: No Chills, No Fatigue, No Malaise, No Appetite, No Other HEENT: No Head Aches, No Visual Changes, No Eye Pain, No Ear Pain, No Dysphasia, No Sinus Congestion, No Post Nasal Drip, No Sore Throat, No Other Pulmonary: Dyspnea; No Cough, No Pleuritic Chest Pain, No Other Cardiovascular: Edema; No: Chest Pain, Palpitations, Orthopnea, Paroxysmal Noc. Dyspnea, Lt Headedness, Other Objective-Cardiology Exam Last Set of Vital Signs Vital Signs 12/22/18 12/26/18 12/26/18 12/26/18 20:14 04:50 07:00 07:42 Temp 97.6 Pulse 71 Resp 16 B/P (MAP) 139/67 (91) Pulse Ox 94 O2 Delivery Nasal Cannula O2 Flow Rate 3.00 FiO2 32 Capillary Refill : Less Than 3 SecondsLess Than 3 Seconds I&O Intake and Output 12/26/18 00:00 Intake Total 1070 ml Output Total 1950 ml Balance -880 ml Intake Oral 1020 ml IV Total 50 ml Output Urine Total 1950 ml # Bowel Movements 1 General: Alert, Oriented X3, Cooperative HEENT: Atraumatic, Other (RIGHT EYE CLOUDY, LEFT PUPIL ROUND AND REACTIVE) Neck: Supple Lungs: Clear to Auscultation, Normal Air Movement Heart: Normal S1, Normal S2, Other (IRREGULARLY IRREGULAR WITH CONTROLLED RATE) Abdomen: No Tenderness, Other (HYPERACTIVE BOWEL SOUNDS) Extremities: No Clubbing, Other (EDEMA) Neuro: Normal Speech Psych/Mental Status: Mental Status NL, Other (FLAT AFFECT) Results Lab Laboratory Tests 12/26/18 06:10 A/P-Cardiology Admission Diagnosis Pneumonia Pleural effusion Chronic atrial fibrillation Hyponatremia Assessment/Plan Generalized weakness and loss of energy, debility, receiving physical therapy, improving slowly. Hyponatremia, continue to monitor Shortness of breath, bilateral pleural effusion, status post thoracentesis, maintained on IV lasix, continue to monitor Persistent atrial fibrillation, heart rate is controlled, continue to monitor closely due to the history of tachybradycardia episode. 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 managed by Dr. Singh Patient had a SPECT perfusion study done in July 2015 at [facility] cardiology reported to have normal left ventricular function with ejection fraction 56 percent and normal LV perfusion. 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 Continue to monitor [id number] score is 4, yearly risk of stroke without oral anticoagulation is 4 percent. 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 Continue to monitor. Nonobstructive carotid artery stenosis-most recent carotid duplex done September 2017, continue to monitor. Hypothyroidism- management per Dr. Bahena Anxiety, depression, managed by primary care physician GERMAN Clinical Quality Measures DVT/VTE Risk/Contraindication: Risk Factor Score Per Nursin MICHAEL HALL MD Dec 26, 2018 09:25
[2018-12-26] MEDS: FLUTICASONE NASAL SPRAY (FLONASE) 16 GM BTL NS SCH (09:40)
[2018-12-26] MEDS: SUCRALFATE 1 GM (CARAFATE) TAB PO SCH ×3 (09:40→20:13)
[2018-12-26] MEDS: LACTOBACILLUS ACIDOPHILUS (PROBIOTIC) CAPSULE PO SCH (09:40)
[2018-12-26] MEDS: FLUCONAZOLE 200 MG/100 ML 50 ML, EMPTY IV BAG (PVC) 1 EA IV SCH ×2 (09:40)
[2018-12-26] MEDS: meTOprolol SUCCINATE 100 MG (TOPROL XL) TAB PO SCH (09:40)
[2018-12-26] MEDS: Loteprednol Etabonate (Lotemax) OD SCH ×2 (09:40→20:13)
[2018-12-26] MEDS: SODIUM CHLORIDE 1 GM TAB (NON-FORMULARY) PO SCH (09:40)
[2018-12-26] MEDS: SIMETHICONE 80 MG (MYLICON) CHEW PO SCH ×4 (09:40→20:13)
[2018-12-26] MEDS: BRINZOLAMIDE OS SCH ×2 (09:40→20:13)
[2018-12-26] MEDS: KCL 20 MEQ TAB (K-DUR) PO SCH (09:40)
[2018-12-26] MEDS: CALCIUM CARB + VIT D 600 MG (CALCARB + D) TAB PO SCH ×2 (09:40→18:04)
[2018-12-26] MEDS: DULoxetine 20 MG (CYMBALTA) CAP PO SCH ×2 (09:40→20:09)
[2018-12-26] MEDS: APIXABAN 2.5 MG (ELIQUIS) TABLET PO SCH ×2 (09:40→20:09)
[2018-12-26] MEDS: BRIMONIDINE TART OS SCH ×2 (09:40→20:13)
[2018-12-26] MEDS: LORazepam 0.5 MG (ATIVAN) TABLET PO PRN (10:10)
--- NOTE | 2018-12-26 11:48 | NUR ---
Unscheduled [employer] downtime from [phone].
[2018-12-26] MEDS: ARTIFICAL TEARS 0.4 ML UNIT DOSE (REFRESH PLUS) OU SCH ×4 (11:50→20:14)
--- NOTE | 2018-12-26 12:54 | NUR ---
CM/SS. Patient has been accepted for Medicare skilled admission to [facility], anticipated discharge or Monday. Daughter Luisana is meeting with [facility] staff today to select room. Luisana and patient have secured a large suite at [facility] with a goal for patient to move there after short term skilled. Patient has been on SWB status as hospital, [facility] aware she has used some skilled days. CARE Assessment pending.
--- NOTE | 2018-12-26 14:10 | NUR ---
Pastoral care visit.
--- NOTE | 2018-12-26 15:21 | Pulmonary Progress Note ---
Subjective Time Seen by a Provider: 15:20 Subjective/Events-last exam Pt still complains of SOB matias with exertion. Sepsis Event Evaluation Height, Weight, BMI Height: 5'1.00" Weight: 109lbs. 9.0oz. 49.599088fp; 20.0 BMI Method:Stated Exam Exam Vital Signs Date Time Temp Pulse Resp B/P (MAP) Pulse Ox O2 Delivery O2 Flow Rate FiO2 12/26/18 12:45 55 12/26/18 08:00 97.6 53 18 142/77 (98) 94 Nasal Cannula 3.00 12/26/18 07:55 Nasal Cannula 3.00 12/26/18 07:42 Nasal Cannula 3.00 12/26/18 07:00 71 12/26/18 04:50 97.6 70 16 139/67 (91) 94 Nasal Cannula 3.00 12/26/18 00:55 66 12/25/18 23:20 97.7 76 20 133/60 (84) 92 Nasal Cannula 3.00 12/25/18 21:53 Nasal Cannula 3.00 12/25/18 20:00 Nasal Cannula 3.00 12/25/18 19:47 97.3 66 18 119/54 (75) 94 Nasal Cannula 3.00 12/25/18 19:00 64 12/25/18 16:32 97.5 55 18 114/78 (90) 93 Nasal Cannula 3.00 I & O 12/26/18 07:00 Intake Total 1170 ml Output Total 1800 ml Balance -630 ml Height & Weight Height: 5'1.00" Weight: 109lbs. 9.0oz. 49.688902hb; 20.0 BMI Method:Stated General Appearance: No Apparent Distress, WD/WN, Anxious HEENT: PERRL/EOMI, Pharynx Normal Neck: Full Range of Motion, Normal Inspection, Non Tender, Supple Respiratory: Chest Non Tender, No Respiratory Distress, Decreased Breath Sounds Cardiovascular: Regular Rate, Rhythm, No Edema Capillary Refill: Less Than 3 Seconds Gastrointestinal: normal bowel sounds, non tender, soft Extremity: Normal Capillary Refill, Normal Inspection, No Pedal Edema Neurologic/Psychiatric: Alert, Oriented x3 Skin: Normal Color Results Lab Laboratory Tests 12/25/18 08:55 12/26/18 06:10 Assessment/Plan Assessment/Plan Pneumonia with left pleural effusion -Merrem -CT chest reviewed -Give lasix 40mg IV daily -repeat labs pending -Left pleural fluid is neg cytology -check villanueva cultures -(Echocardiogram done 12/11/18 EF 55-65% Left atrial dilatation 4.2cm, MVP with mod MR, mod-sev TR PA 50-55mmHg, continue to monitor) Pulmonary HTN -monitor for now Hx left nephrectomy secondary to low-grade papillary CA, noninvasive done in July 2015 Hyponatremia Afib CAD ZOILA LOZADA DO Dec 26, 2018 15:21
[2018-12-26] MEDS: RT-ALBUTEROL/IPRATROPIUM 3 ML (DUONEB) VIAL INH SCH ×2 (15:24→20:11)
[2018-12-26 18:41] VITALS: BP 127/73
[2018-12-26] MEDS: PANTOPRAZOLE 40 MG (PROTONIX) TAB PO SCH (20:09)
[2018-12-26] MEDS: LORazepam 0.5 MG (ATIVAN) TABLET PO SCH (20:09)
[2018-12-26] MEDS: DOCUSATE SODIUM 100 MG (COLACE) CAP PO SCH (20:09)
[2018-12-26] MEDS: POLYETHYLENE GLYCOL 17 GM (MIRALAX) PACK PO SCH (20:12)
[2018-12-27] MEDS: DILTIAZEM 30 MG (CARDIZEM) TAB PO SCH ×3 (00:05→12:06)
[2018-12-27 06:36] VITALS: BP 125/57
[2018-12-27] MEDS: RT-ALBUTEROL/IPRATROPIUM 3 ML (DUONEB) VIAL INH SCH (06:44)
[2018-12-27] MEDS: KCL 20 MEQ TAB (K-DUR) PO SCH (07:11)
[2018-12-27] MEDS: CALCIUM CARB + VIT D 600 MG (CALCARB + D) TAB PO SCH (07:11)
[2018-12-27] MEDS: LEVOTHYROXINE 75 MCG (LEVOTHROID) TABLET PO SCH (07:11)
[2018-12-27 07:17] LABS: HEMOGLOBIN 10.6 G/DL (11.5-16.0); MEAN PLATELET VOLUME 9.8 FL (7.4-10.4); RED CELL DISTRIBUTION WIDTH 14.8 % (10.0-14.5); WHITE BLOOD COUNT 9.9 10^3/uL (4.3-11.0)
[2018-12-27 07:28] LABS: BUN/CREATININE RATIO 23; CALCIUM 7.6 MG/DL (8.5-10.1); CARBON DIOXIDE 23 MMOL/L (21-32); CHLORIDE 97 MMOL/L (98-107); CREATININE SERUM 0.66 MG/DL (0.60-1.30); GFR ESTIMATED > 60; GLUCOSE 69 MG/DL (70-105); MAGNESIUM 1.6 MG/DL (1.8-2.4); POTASSIUM 3.6 MMOL/L (3.6-5.0); SODIUM 126 MMOL/L (135-145)
--- NOTE | 2018-12-27 07:41 | Cardiology Progress Note ---
Subjective Date Seen by Provider: Dec 27, 2018 Time Seen by Provider: 07:40 Subjective/Events-last exam patient is laying down in bed, had a good night's sleep last night. Denied any chest pain Review of Systems General: No Chills, No Night Sweats; Fatigue, Malaise; No Appetite, No Other HEENT: No Head Aches, No Visual Changes, No Eye Pain, No Ear Pain, No Dysphasi a, No Sinus Congestion, No Post Nasal Drip, No Sore Throat, No Other Pulmonary: Dyspnea; No Cough, No Pleuritic Chest Pain, No Other Cardiovascular: No: Chest Pain, Palpitations, Orthopnea, Paroxysmal Noc. Dyspnea, Edema, Lt Headedness, Other Objective-Cardiology Exam Last Set of Vital Signs Vital Signs 12/22/18 12/27/18 20:14 06:36 Temp 97.8 Pulse 80 Resp 19 B/P (MAP) 125/57 (79) Pulse Ox 93 O2 Delivery Nasal Cannula O2 Flow Rate 3.00 FiO2 32 Capillary Refill : Less Than 3 SecondsLess Than 3 Seconds I&O Intake and Output 12/27/18 00:00 Intake Total 890 ml Output Total 1825 ml Balance -935 ml Intake Oral 890 ml Output Urine Total 1825 ml General: Alert, Oriented X3, Cooperative HEENT: Atraumatic, Other (RIGHT EYE CLOUDY, LEFT PUPIL ROUND AND REACTIVE) Neck: Supple Lungs: Clear to Auscultation, Normal Air Movement Heart: Normal S1, Normal S2, Other (IRREGULARLY IRREGULAR WITH CONTROLLED RATE) Abdomen: No Tenderness, Other (HYPERACTIVE BOWEL SOUNDS) Extremities: No Clubbing, Other (EDEMA) Neuro: Normal Speech Psych/Mental Status: Mental Status NL, Other (FLAT AFFECT) Results Lab Laboratory Tests 12/27/18 07:00 A/P-Cardiology Admission Diagnosis Pneumonia Pleural effusion Chronic atrial fibrillation Hyponatremia Assessment/Plan Generalized weakness and loss of energy, debility, receiving physical therapy, improving slowly. Hyponatremia, chronic, currently more stable. Continue to monitor Shortness of breath, bilateral pleural effusion, status post thoracentesis, maintained on IV lasix, I will change her to oral and monitor tolerance and response Persistent atrial fibrillation, heart rate is controlled, continue to monitor closely due to the history of tachybradycardia episode. 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 managed by Dr. Singh Patient had a SPECT perfusion study done in July 2015 at [facility] cardiology reported to have normal left ventricular function with ejection fraction 56 percent and normal LV perfusion. 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 Continue to monitor [id number] score is 4, yearly risk of stroke without oral anticoagulation is 4 percent. 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 Continue to monitor. Nonobstructive carotid artery stenosis-most recent carotid duplex done September 2017, continue to monitor. Hypothyroidism- management per Dr. Bahena Anxiety, depression, managed by primary care physician GERMAN Clinical Quality Measures DVT/VTE Risk/Contraindication: Risk Factor Score Per Nursin MICHAEL HALL MD Dec 27, 2018 07:41
--- NOTE | 2018-12-27 08:24 | Pulmonary Progress Note ---
Subjective Time Seen by a Provider: 08:24 Subjective/Events-last exam Still c/o SOB Sepsis Event Evaluation Height, Weight, BMI Height: 5'1.00" Weight: 109lbs. 9.0oz. 49.273171bx; 20.0 BMI Method:Stated Exam Exam Vital Signs Date Time Temp Pulse Resp B/P (MAP) Pulse Ox O2 Delivery O2 Flow Rate FiO2 12/27/18 06:36 97.8 80 19 125/57 (79) 93 Nasal Cannula 3.00 12/26/18 20:00 Nasal Cannula 3.00 12/26/18 18:41 98.0 78 19 127/73 (91) 97 Nasal Cannula 3.00 12/26/18 12:45 55 I & O 12/27/18 07:00 Intake Total 790 ml Output Total 1925 ml Balance -1135 ml Height & Weight Height: 5'1.00" Weight: 109lbs. 9.0oz. 49.754864wk; 20.0 BMI Method:Stated General Appearance: No Apparent Distress, WD/WN, Anxious HEENT: PERRL/EOMI, Pharynx Normal Neck: Full Range of Motion, Normal Inspection, Non Tender, Supple Respiratory: Chest Non Tender, No Respiratory Distress, Decreased Breath Sounds Cardiovascular: Regular Rate, Rhythm, No Edema Capillary Refill: Less Than 3 Seconds Gastrointestinal: normal bowel sounds, non tender, soft Extremity: Normal Capillary Refill, Normal Inspection, No Pedal Edema Neurologic/Psychiatric: Alert, Oriented x3 Skin: Normal Color Results Lab Laboratory Tests 12/25/18 08:55 12/26/18 06:10 12/27/18 07:00 Assessment/Plan Assessment/Plan Pneumonia with left pleural effusion -Merrem -CXR reviewed -Continue Lasix -repeat labs pending -check villanueva cultures -(Echocardiogram done 12/11/18 EF 55-65% Left atrial dilatation 4.2cm, MVP with mod MR, mod-sev TR PA 50-55mmHg, continue to monitor) Pulmonary HTN -monitor for now 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
[2018-12-27] MEDS ORDERED: MAGNESIUM OXIDE (MAG-OX)400 MG TAB PO NR (08:45)
[2018-12-27] MEDS: ARTIFICAL TEARS 0.4 ML UNIT DOSE (REFRESH PLUS) OU SCH (08:52)
[2018-12-27] MEDS: LACTOBACILLUS ACIDOPHILUS (PROBIOTIC) CAPSULE PO SCH (08:52)
[2018-12-27] MEDS: SIMETHICONE 80 MG (MYLICON) CHEW PO SCH (08:52)
[2018-12-27] MEDS: meTOprolol SUCCINATE 100 MG (TOPROL XL) TAB PO SCH (08:52)
[2018-12-27] MEDS: SUCRALFATE 1 GM (CARAFATE) TAB PO SCH (08:52)
[2018-12-27] MEDS: DULoxetine 20 MG (CYMBALTA) CAP PO SCH (08:52)
[2018-12-27] MEDS: Loteprednol Etabonate (Lotemax) OD SCH (08:54)
[2018-12-27] MEDS: SODIUM CHLORIDE 1 GM TAB (NON-FORMULARY) PO SCH (08:54)
[2018-12-27] MEDS: BRIMONIDINE TART OS SCH (08:54)
[2018-12-27] MEDS: FLUTICASONE NASAL SPRAY (FLONASE) 16 GM BTL NS SCH (08:54)
[2018-12-27] MEDS: BRINZOLAMIDE OS SCH (08:54)
[2018-12-27] MEDS: FLUCONAZOLE 200 MG/100 ML 50 ML, EMPTY IV BAG (PVC) 1 EA IV SCH ×2 (08:54)
[2018-12-27] MEDS: APIXABAN 2.5 MG (ELIQUIS) TABLET PO SCH (08:57)
[2018-12-27] MEDS ORDERED: FUROSEMIDE 40 MG (LASIX) TAB PO SCH (09:00)
[2018-12-27] MEDS ORDERED: CLD600T PO ×2 (09:23)
[2018-12-27] MEDS ORDERED: IPRA3AMP31 INH ×2 (09:23)
[2018-12-27] MEDS ORDERED: LORA0.5T PO ×2 (09:23)
[2018-12-27] MEDS ORDERED: BRINZOLAMIDE OS ×2 (09:23)
[2018-12-27] MEDS ORDERED: BRIMONIDINE TART OS ×2 (09:23)
[2018-12-27] MEDS ORDERED: FURO40TA4 PO ×2 (09:23)
[2018-12-27] MEDS ORDERED: DIGO125T18 PO ×2 (09:23)
[2018-12-27] MEDS ORDERED: POTA20TA8 PO ×2 (09:23)
[2018-12-27] MEDS ORDERED: METO-395 PO ×2 (09:23)
[2018-12-27] MEDS ORDERED: DILT30TA PO ×2 (09:23)
[2018-12-27] MEDS ORDERED: MAGN400T6 PO ×2 (09:23)
[2018-12-27] MEDS ORDERED: DULO20CA PO ×2 (09:23)
[2018-12-27] MEDS ORDERED: NF-NACL1GT PO ×2 (09:23)
[2018-12-27] MEDS ORDERED: LOTEPREDNOL ETABONATE OD ×2 (09:23)
--- NOTE | 2018-12-27 09:26 | Discharge Inst-Skilled Nursing ---
Discharge Inst-Skilled NF Patient Instructions Patient Problems: HYPONATREMIA ATRIAL FIBRILLATION HYPERTENSION HYPOTHYROIDISM CHRONIC ANXIETY HYPERLIPIDEMIA ESOPHAGEAL REFLUX PLEURAL EFFUSION PNEUMONIA INSOMNIA DEPRESSION Consult/Follow Up/Orders Follow Up Appt.: [facility] Skilled NF Admit to: [facility] Certification (SNF) I certify that SNF services are required to be given on an inpatient basis because of the above named patient's need for [facility] care on a continuing basis for the conditions(s) for which he/she was receiving inpatient hospital services prior to his/her transfer to the SNF. [facility] Facility Order: Nursing Services, Category Analyst-Evaluate & Treat, Physical Therapy-Evaluate & Treat Oxygen Delivery Method: Nasal Cannula Discharge Diet: Regular Diet Daily Activity as Tolerated: Yes New & Resume Previous Orders New & Resume Previous Orders commode to bedside daily weight call physician if weight gain of more than 2# in 2 days call physician for worsening shortness of breath pt to be on oxygen at 3 liters NC humidified pt to eval and treat Junior Bahena Dec 27, 2018 09:24 Medication List: Active Scripts Active [(NF) (Loteprednol Etabonate (Lotemax))] 1 Drops 0 Drop OD BID [(NF) (Brinzolamide/Brimonidine Tart (Simbrinza 1%-0.2% Eye Drops))] 0 Drop OS BID Magnesium Oxide 400 Mg Tablet 400 Mg PO 0845 Furosemide 40 Mg Tablet 40 Mg PO DAILY Sodium Chloride 1 Gm Tab 1 Gm PO DAILY@0900 Calcium 600 + Vit D3 400 Tab (Calcium Carbonate/Vitamin D3) 1 Each Tablet 600 Mg PO BID WITH MEALS Klor-Con M20 (Potassium Chloride) 20 Meq Tab.er.prt 20 Meq PO DAILY@0700 Lorazepam 0.5 Mg Tablet 0.5 Mg PO DAILY@2100 0.5mg daily at 2100 and 1/2 po q 6 hours prn anxiety Cymbalta (Duloxetine HCl) 20 Mg Cap 20 Mg PO BID Diltiazem HCl 30 Mg Tablet 30 Mg PO Q6HR Metoprolol Succinate 100 Mg Tab.er.24h 100 Mg PO DAILY Digox (Digoxin) 125 Mcg Tablet 0.125 Mg PO Q48H@1900 Iprat-Albut 0.5-3(2.5) mg/3 ml (Ipratropium/Albuterol Sulfate) 3 Ml Ampul.neb 3 Ml INH TID scheduled tid with additional treatments q 3 hours prn shortness of breath Reported Diclofenac Sodium 100 Gm Gel..gram. 2 Gm TOP QID PRN APPLY TO SHOULDER AND HANDS Symbicort 160-4.5 Mcg Inhaler (Budesonide/Formoterol Fumarate) 10.2 Gm Hfa.aer.ad 2 Puff IH BID PRN Alprazolam 0.25 Mg Tablet 0.5-1 Tab PO DAILY PRN Proair Respiclick (Albuterol Sulfate) 90 Mcg Aer.pow.ba 1-2 Puff INH QID PRN Carafate (Sucralfate) 1 Gm/10 Ml Oral.susp 10 Ml PO TID PRN Imodium A-D (Loperamide HCl) 2 Mg Tablet 2 Mg PO UD PRN Refresh Optive Advanced Drops (Carboxymethyl/Glycerin/Poly80) 10 Ml Drops 2 Drop OU QID Tylenol (Acetaminophen) 325 Mg Tablet 325-650 Mg PO Q6H PRN Mucinex (Guaifenesin) 1,200 Mg Tab.er.12h 1,200 Mg PO BID PRN Zyrtec (Cetirizine HCl) 10 Mg Tablet 10 Mg PO HS Colace (Docusate Sodium) 100 Mg Capsule 100 Mg PO HS Miralax (Polyethylene Glycol 3350) 17 Gm Powd.pack 8.5 Gm PO HS Gas-X (Simethicone) 125 Mg Capsule 125 Mg PO TIDPC PRN Beano (Ebehj-T-Ypjyjropszymn) 150 Unit Tablet 2 Tab PO AC Probiotic (L.acidoph & Paracasei,B.lactis) 1 Each Capsule 1 Cap PO DAILY Vitamin D3 (Cholecalciferol (Vitamin D3)) 1,000 Unit Capsule 1,000 Unit PO 1200 Fish Oil 1,000 mg Capsule ([place] 3 Polyunsat Fatty Acids) 1,000 Mg Cap 1,000 Mg PO BID Amlodipine Besylate 5 Mg Tablet 5 Mg PO DAILY Atorvastatin Calcium 10 Mg Tablet 10 Mg PO HS Vesicare (Solifenacin Succinate) 10 Mg Tablet 10 Mg PO Q48H Lotemax (Loteprednol Etabonate) 5 Gm Drops.gel 1 Drop OD BID Simbrinza 1%-0.2% Eye Drops (Brinzolamide/Brimonidine Tart) 8 Ml Drops.susp 1 Drop OS BID Pantoprazole Sodium 40 Mg Tablet.dr 40 Mg PO HS Metoprolol Succinate 50 Mg Tab.er.24h 75 Mg PO DAILY TAKES 1 & 1/2 (50MG) TABLET Spironolactone 25 Mg Tablet 25 Mg PO BID Cyclobenzaprine HCl 5 Mg Tablet 2.5 Mg PO Q8H TAKES 1/2 (5MG) TABLET Coricidin Hbp Cough & Cold Tab (Dextromethorphan HBr/Chlor-Mal) 1 Each Tablet 1 Tab PO TID Cephalexin 500 Mg Capsule 500 Mg PO TID 7 Days 7 DAY SUPPLY FILLED 12-07-18 Digox (Digoxin) 125 Mcg Tablet 125 Mcg PO Q48H@0300 IF HR UNDER 60 TWO OR MORE TIMES DURING THE DAY REDUCE TO 1/2 TABLET Levothyroxine Sodium 75 Mcg Tablet 75 Mcg PO 0300 Multivitamins (Multivitamin) 1 Each Tablet 1 Tab PO 1200 Eliquis (Apixaban) 2.5 Mg Tablet 2.5 Mg PO BID Lab results: Laboratory Tests Test 12/27/18 07:00 Range/Units White Blood Count 9.9 4.3-11.0 10^3/uL Red Blood Count 3.44 L 4.35-5.85 10^6/uL Hemoglobin 10.6 L 11.5-16.0 G/DL Hematocrit 32 L 35-52 % Mean Corpuscular Volume 92 80-99 FL Mean Corpuscular Hemoglobin 31 25-34 PG Mean Corpuscular Hemoglobin Concent 34 32-36 G/DL Red Cell Distribution Width 14.8 H 10.0-14.5 % Platelet Count 231 130-400 10^3/uL Mean Platelet Volume 9.8 7.4-10.4 FL Sodium Level 126 L 135-145 MMOL/L Potassium Level 3.6 3.6-5.0 MMOL/L Chloride Level 97 L 98-107 MMOL/L Carbon Dioxide Level 23 21-32 MMOL/L Anion Gap 6 5-14 MMOL/L Blood Urea Nitrogen 15 7-18 MG/DL Creatinine 0.66 0.60-1.30 MG/DL Estimat Glomerular Filtration Rate > 60 BUN/Creatinine Ratio 23 Glucose Level 69 L 70-105 MG/DL Calcium Level 7.6 L 8.5-10.1 MG/DL Phosphorus Level 2.0 L 2.3-4.7 MG/DL Magnesium Level 1.6 L 1.8-2.4 MG/DL My orders: Orders - JUNIOR BAHENA MD Digoxin Tablet (Lanoxin Tablet) (12/28/18 19:00) Vital Signs: Special (Order) BID (12/26/18 12:22) Nursing Communication (Order) (12/26/18 12:22) Patient Visit (12/26/18 ) Functional Activities, Ea 15 (12/26/18 ) Magnesium Oxide Tablet (Mag Ox Tablet) (12/27/18 08:45) Attending Discharge Inpt/Inobs (12/27/18 09:13) JUNIOR BAHENA MD Dec 27, 2018 09:26
--- NOTE | 2018-12-27 09:27 | Discharge Summary ---
Diagnosis/Chief Complaint Date of Admission Dec 21, 2018 at 11:41 Date of Discharge Admission Diagnosis Admission Diagnosis HYPONATREMIA ATRIAL FIBRILLATION HYPERTENSION HYPOTHYROIDISM CHRONIC ANXIETY HYPERLIPIDEMIA ESOPHAGEAL REFLUX PLEURAL EFFUSION PNEUMONIA INSOMNIA DEPRESSION Discharge Diagnosis HYPONATREMIA ATRIAL FIBRILLATION HYPERTENSION HYPOTHYROIDISM CHRONIC ANXIETY HYPERLIPIDEMIA ESOPHAGEAL REFLUX PLEURAL EFFUSION PNEUMONIA INSOMNIA DEPRESSION Discharge Summary Discharge Physical Examination Allergies: Coded Allergies: Bacitracin Zinc (Verified Allergy, Unknown, 10/06/15) bacitracin (Verified Allergy, Unknown, 10/06/15) benzalkonium chloride (Verified Allergy, Unknown, 10/06/15) gramicidin D (Verified Allergy, Unknown, 10/06/15) hydrocortisone (Verified Allergy, Unknown, 10/06/15) lidocaine (Verified Allergy, Unknown, 10/06/15) meclizine (Verified Allergy, Unknown, 10/06/15) neomycin (Verified Allergy, Unknown, 10/06/15) neomycin sulfate (Verified Allergy, Unknown, 10/06/15) polymyxin B (Verified Allergy, Unknown, 10/06/15) polymyxin B sulfate (Verified Allergy, Unknown, 10/06/15) Vitals & I&Os Vital Signs Date Time Temp Pulse Resp B/P (MAP) Pulse Ox O2 Delivery O2 Flow Rate FiO2 12/27/18 06:36 97.8 80 19 125/57 (79) 93 Nasal Cannula 3.00 12/22/18 20:14 32 General Appearance: Alert, Oriented X3, Cooperative HEENT: Atraumatic, Other (RIGHT EYE CLOUDY, LEFT PUPIL ROUND AND REACTIVE) Respiratory: Clear to Auscultation, Normal Air Movement Cardiovascular: Normal S1, Normal S2, Other (IRREGULARLY IRREGULAR WITH CONTROLLED RATE) Abdominal: No Tenderness, Other (HYPERACTIVE BOWEL SOUNDS) Extremities: No Clubbing, Other (EDEMA) Neuro: Normal Speech Psych/Mental Status: Mental Status NL, Other (FLAT AFFECT) Hospital Course Pending Labs Laboratory Tests 12/27/18 07:00: White Blood Count 9.9, Red Blood Count 3.44, Hemoglobin 10.6, Hematocrit 32, Mean Corpuscular Volume 92, Mean Corpuscular Hemoglobin 31, Mean Corpuscular Hemoglobin Concent 34, Red Cell Distribution Width 14.8, Platelet Count 231, Mean Platelet Volume 9.8, Sodium Level 126, Potassium Level 3.6, Chloride Level 97, Carbon Dioxide Level 23, Anion Gap 6, Blood Urea Nitrogen 15, Creatinine 0.66, Estimat Glomerular Filtration Rate > 60, BUN/Creatinine Ratio 23, Glucose Level 69, Calcium Level 7.6, Phosphorus Level 2.0, Magnesium Level 1.6 Discharge Instructions to patient/family Please see electronic discharge instructions given to patient. Discharge Medications Reviewed and agree with Discharge Medication list on patient's Discharge Instruction sheet Clinical Quality Measures DVT/VTE Risk/Contraindication: Risk Factor Score Per Nursin JUNIOR SELLERS MD Dec 27, 2018 09:27
--- NOTE | 2018-12-27 09:43 | Therapy Team Discharge Summary ---
Therapy Discharge Summary Discharge Recommendations Date of Discharge Therapy D/C Recommendations: Long-Term (TCU/NH) Physical Therapy Goals address and bed mobility goals attained. Patient ambulate short distances only due to fatigue and SOA with minimal activity. Patient has progressed with mobility and requires much encouragement to actively participate with therapy. Patient dismissing to [place] on this date for continued care. Occupational Therapy Decreased Activ Tolerance, Decreased Safety Aware, Decreased UE Strength, Impaired Bed Mobility, Impaired Funct Balance, Impaired I ADL's, Impaired Self- Care Skills PT Prison Goals Sole Buffer Goals PT Prison Goals Time Frame: Jan 05, 2019 Transfers (B,C,W/C) (FIM): 5 (met 12/26/18) Sit to Lying (QC): 5 (met) Lying-Sitting on Side/Bed(QC): 5 (met 12/26/18) Sit to Stand (QC): 5 Rollin (met 12/26/18) Chair/Wmj-pe-Nqmvs Xfer(QC): 5 Does the Patient Walk: Yes Gait (FIM): 5 Gait distance (FIM): 3=150 ft Distance: 150' Walk 50ft with 2 Turns (QC): 5 Walk 150 ft (QC): 5 Gait Level of Assist: 5 Gait Assistive Device: FWW OT Prison Goals Sole Buffer Goals Time Frame: Jan 18, 2019 Eating (FIM): 6 Eating (QC): 6 Groomin Oral Hygiene (QC): 6 Bathing(FIM): 6 Bathing Location: L Arm, R Arm, L Upper Leg, R Upper Leg, L Lower Leg (including foot), R Lower Leg (including foot), Chest, Abdomen, Buttocks, Perineal Area Upper Body Dressing(FIM): 6 Lower Body Dressing(FIM): 6 Toileting(FIM): 6 Toileting Hygiene (QC): 6 Transfers (B,C,W/C) (FIM): 6 Toilet/Commode Transfer(FIM): 6 Toilet/Commode Transfer (QC): 6 Shower Transfer(FIM): 6 Additional Goals: 1-Demonstrate ADL Tasks, 2-Verbalize Understanding, 3- ImproveStrength/Natty 1=Demonstrate adherence to instructed precautions during ADL tasks. 2=Patient will verbalize/demonstrate understanding of assistive devices/modifications for ADL. 3=Patient will improve strength/tolerance for activity to enable patient to perform ADL's. RUDDY WILSON PT Dec 27, 2018 09:43
--- NOTE | 2018-12-27 11:51 | NUR ---
Report called to KODY Lomas at [facility].
--- NOTE | 2018-12-27 15:05 | NUR ---
CM/SS. Patient discharged [facility] Medicare [facility] their transportation. CARE Assessment completed with daughter/DPOA Luisana Mark, processed with [facility]. Faxed orders and CARE to [facility]. Prepared packet to accompany patient, including DPOA HC papers. As earlier noted, family have reserved a suite at [facility], hopeful that patient can move there after skilled therapies discharge. Per Luisana, she was independent prior to illness and hospitalization. She was driving and managing all errands and ADLs.
--- NOTE | 2018-12-28 15:24 | Therapy Team Discharge Summary ---
Therapy Discharge Summary Discharge Recommendations Date of Discharge Dec 27, 2018 at 13:00 Therapy D/C Recommendations: Group Home (TCU/NH) Occupational Therapy pt made fair progress while receiving OT services SWING bed. OT focused on increasing independence with ADLS/ functional transfers, activity tolerance, energy conservation techniques, and overall safety with functional tasks. OT sessions limited and OT goals not met secondary to pt and pt daughter refusing to complete certain tasks secondary to fatigue.pt currently is able to perform functional transfers CGA using RW, toileting with CGA, and grooming with setup while seated. pt would benefit from continued OT services. pt to d/c to SNF. Decreased Activ Tolerance, Decreased Safety Aware, Decreased UE Strength, Impaired Bed Mobility, Impaired Funct Balance, Impaired I ADL's, Impaired Self- Care Skills PT Senior Care Goals Tool And Production Planner Goals PT Tool And Production Planner Goals Time Frame: Jan 05, 2019 Transfers (B,C,W/C) (FIM): 5 (met 12/26/18) Sit to Lying (QC): 5 (met) Lying-Sitting on Side/Bed(QC): 5 (met 12/26/18) Sit to Stand (QC): 5 Rollin (met 12/26/18) Chair/Gyx-cb-Kcaes Xfer(QC): 5 Does the Patient Walk: Yes Gait (FIM): 5 Gait distance (FIM): 3=150 ft Distance: 150' Walk 50ft with 2 Turns (QC): 5 Walk 150 ft (QC): 5 Gait Level of Assist: 5 Gait Assistive Device: FWW OT Tool And Production Planner Goals Tool And Production Planner Goals Time Frame: Jan 18, 2019 Eating (FIM): 6 (not met ) Eating (QC): 6 (not met ) Groomin (not met ) Oral Hygiene (QC): 6 (not met ) Bathing(FIM): 6 (not met ) Bathing Location: L Arm, R Arm, L Upper Leg, R Upper Leg, L Lower Leg (including foot), R Lower Leg (including foot), Chest, Abdomen, Buttocks, Perineal Area Upper Body Dressing(FIM): 6 (not met ) Lower Body Dressing(FIM): 6 (not met ) Toileting(FIM): 6 (not met ) Toileting Hygiene (QC): 6 (not met ) Transfers (B,C,W/C) (FIM): 6 (not met ) Toilet/Commode Transfer(FIM): 6 (not met ) Toilet/Commode Transfer (QC): 6 (not met ) Shower Transfer(FIM): 6 (not met ) Additional Goals: 1-Demonstrate ADL Tasks, 2-Verbalize Understanding, 3- ImproveStrength/Natty 1=Demonstrate adherence to instructed precautions during ADL tasks. 2=Patient will verbalize/demonstrate understanding of assistive devices/modifications for ADL. 3=Patient will improve strength/tolerance for activity to enable patient to perform ADL's. KNEIA WOODSON OT Dec 28, 2018 15:24
[2018-12-28] MEDS ORDERED: DIGOXIN 0.125 MG (LANOXIN) TAB PO SCH (19:00)
== END 2018-12-27 13:00 | DRG 194 ==
LOC: 4TH 11:41
PROVIDERS: ADMIT Family Medicine; ATTEND Family Medicine
DX: J18.9 Pneumonia, unspecified organism (principal); J90 Pleural effusion, not elsewhere classified; E22.2 Syndrome of inappropriate secretion of antidiuretic hormone; E83.42 Hypomagnesemia; I48.2 Chronic atrial fibrillation; I27.20 Pulmonary hypertension, unspecified; Z66 Do not resuscitate; R53.1 Weakness; I25.10 Atherosclerotic heart disease of native coronary artery without angina pectoris; I10 Essential (primary) hypertension; I08.1 Rheumatic disorders of both mitral and tricuspid valves; E03.9 Hypothyroidism, unspecified; E78.5 Hyperlipidemia, unspecified; K21.9 Gastro-esophageal reflux disease without esophagitis; I65.29 Occlusion and stenosis of unspecified carotid artery; G47.00 Insomnia, unspecified; F41.9 Anxiety disorder, unspecified; F32.9 Major depressive disorder, single episode, unspecified; Z90.5 Acquired absence of kidney
CPT/HCPCS: 36415; 71045; 71250; 80048; 80053; 81000; 83735; 83880; 84100; 85027; 87088; 94640; 94760

== ENCOUNTER → 2019-01-05 | Outpatient (CLI) | payer MEDICARE ==
[~2019-01-05] MED LIST changes: +BRIMONIDINE TART OS; +BRINZOLAMIDE OS; +DILT30TA PO; +DILT60CA PO; +DULO20CA PO; +DULO20CA18 PO; +FURO40TA4 PO; +IPRA3AMP31 INH; +IPRA3AMP31 NEB; +LORA0.5T PO; +LOTEPREDNOL ETABONATE OD; +MAGN400T6 PO; +MAGN500C15 PO; +METO-395 PO; +NF-NACL1GT PO; +POTA-51 PO; +POTA20TA8 PO; +SALI45SP BC
[2019-01-05 15:18] LABS: BILIRUBIN,URINE NEGATIVE (NEGATIVE); CLARITY,URINE CLEAR; COLOR,URINE YELLOW; GLUCOSE, URINE (UA) NEGATIVE (NEGATIVE); KETONES,URINE NEGATIVE (NEGATIVE); LEUKOCYTE ESTERASE ,URINE NEGATIVE (NEGATIVE); NITRITE,URINE NEGATIVE (NEGATIVE); PH,URINE 7 (5-9); PROTEIN,URINE NEGATIVE (NEGATIVE); UROBILINOGEN,URINE NORMAL (NORMAL)
[2019-01-05 15:34] LABS: BACTERIA,URINE FEW /HPF; WBC,URINE RARE /HPF
== END ==
PROVIDERS: ATTEND Family Medicine
DX: M54.5 Low back pain (principal)
CPT/HCPCS: 81000

== ENCOUNTER 2019-01-07 07:22 | Inpatient (IN) | payer MEDICARE ==
[~2019-01-07] VITALS: Ht 154.9 cm; Wt 54.0 kg
[2019-01-07] VITALS (15 sets, daily range): BP systolic 87–158; BP diastolic 42–132
[~2019-01-07 07:22] MED LIST changes: -DILT60CA PO; -DULO20CA18 PO; -IPRA3AMP31 NEB; -MAGN500C15 PO; -POTA-51 PO; -SALI45SP BC
--- OUTSIDE RECORDS SUMMARY | 2019-01-07 07:34 | XMS REPORT | Clinical Summary ---
Author Author [facility] Organization [facility] Address Unknown Phone Unavailable Care Team Providers Care Experimental Machining Lab Manager Name Role Phone Robert Longoria MD Unavailable Karma Bahena MD PCP Source Comments Some departments are not documenting in the electronic medical record. If you d o not see the information that you expected, contact Release of Information in [facility] Information Management department at [phone] for further assistan ce in locating additional records.[facility] Allergies Comments Active Allergy Reactions Severity Noted [...] 0 10 mg tablet mouth daily. Active [id number] Take by 0 (BEANO PO) mouth. Active [...] radical nephroureterectomy -- ; Dr. Avalos @ [facility] [place]. 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 L ast Assessment [...] Use Types Packs/Day Years Used Never Smoker Drinks/Week oz/Week Comments Alcohol Use 0 Standard drinks or equivalent 0.0 No Sex Assigned at Date Recorded Not on file Industry Job Start Date Occupation Not on file Not on file Not on file Travel End Travel History Travel Start No recent travel history available. Last Filed Vital Signs Reading Time Taken Comments Vital Sign 156/92 09/07/2018 1:03 PM PORTRAIT ARTIST Blood Pressure 107 09/07/2018 1:03 PM PORTRAIT ARTIST Pulse - - Temperature - - Respiratory Rate - - Oxygen Saturation - - Inhaled Oxygen Concentration 47.6 kg (105 lb) 09/07/2018 1:03 PM PORTRAIT ARTIST Weight 154.9 cm (5' 1") 09/07/2018 1:03 PM PORTRAIT ARTIST Height 19.84 09/07/2018 1:03 PM PORTRAIT ARTIST Body Mass Index Plan of Treatment Health Maintenance Due Date [...] PART A AND resent B PPO FORMERLY [facility] xxxxxxxxxxx 1997- Present Advance Directives Patient Teasel Setter Explanation Type Date Recorded Advance 10/30/2015 2:22 PM Directive/DPOA
--- OUTSIDE RECORDS SUMMARY | 2019-01-07 07:34 | XMS REPORT | Encounter Summary ---
Author Author [facility] Organization [facility] Address Unknown Phone Unavailable Care Team Providers Care Heel Seam Rubber Name Role Phone Robert Longoria MD Unavailable Karma Bahena MD PCP Reason for Visit * Reason Comments Bladder Cancer * Outpatient Surgery (Routine) Referred By Contact Referred To Contact Status Reason Specialty Diagnoses / Procedures Robert Longoria MD [address] [place] [address] [facility] [address] [place] [address] No Auth Needed Urology Diagnoses 6mo CYSTO-Nacho P rocedures [place] CYSTOURETHROSCOPY PROCEDURE - 30 Encounter Details Care Team Description Date Type Department Robert Longoria MD [address] [place] [address] History of renal pelvis cancer (Primary Dx) 09/07/2018 Procedure visit [facility] [address] [place] [address] Social History Date Tobacco Use Types Packs/Day Years Used Never Smoker Drinks/Week oz/Week Comments Alcohol Use 0 Standard drinks or equivalent 0.0 No Sex Assigned at Date Recorded Not on file Industry Job Start Date Occupation Not on file Not on file Not on file Travel End Travel History Travel Start No recent travel history available. documented as of this encounter Last Filed Vital Signs Reading Time Taken Comments Vital Sign 156/92 09/07/2018 1:03 PM TABLE MAKER Blood Pressure 107 09/07/2018 1:03 PM TABLE MAKER Pulse - - Temperature - - Respiratory Rate - - Oxygen Saturation - - Inhaled Oxygen Concentration 47.6 kg (105 lb) 09/07/2018 1:03 PM TABLE MAKER Weight 154.9 cm (5' 1") 09/07/2018 1:03 PM TABLE MAKER Height 19.84 09/07/2018 1:03 PM TABLE MAKER Body Mass Index documented in this encounter Procedure Notes * Robert Longoria MD - 09/07/2018 1:00 PM TABLE MAKER Associated Order(s): CYSTOSCOPY Procedure(s): [place] CYSTOURETHROSCOPY Pre-Procedure Diagnose(s): History of renal pelvis cancer Date : 09/10/2018 Surgeon: Robert Longoria MD, [facility] 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 T he patient was patient was placed in the lithotomy position. Two percent lidocai ne jelly was administered into the urethral for local anesthesia. The genital ar ea was prepped and draped in the normal sterile fashion. A flexible cystoscope w as advanced into the patient's urethra and then into the bladder. The bladder wa s systematically examined and visualized in its entirety.The right ureteral orif ice was surgically absent the left was normal. No evidence of any tumors was se en. The scope was retroflexed and the anterior bladder and bladder neck inspecte d. Again, no evidence of any tumors was seen. The scope was then removed. The carlos eli tolerated the procedure well. She was given antibiotics to cover the instr umentation. She was discharged from the clinic in stable condition. 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 The scope was retroflexed and the anterior bladder and bladder neck inspected. Again, no evidence of any tumors was seen. The scope was then removed. The patient tolerated the procedure well. She was given antibiotics to cover the instrumentation. She was discharged from the clinic in stable condition. Performing Organization Address City/State/Zipcode Phone Number [place] CLINIC documented in this encounter Visit Diagnoses Diagnosis History of renal pelvis cancer - Primary Personal history of malignant neoplasm, renal pelvis documented in this encounter
[2019-01-07] MEDS ORDERED: RT-ALBUTEROL SULF 2.5 MG/3 ML PRE-MIX VIAL INH STA (07:46)
--- OUTSIDE RECORDS SUMMARY | 2019-01-07 07:48 | XMS REPORT | CCD ---
Author Author Laura Colin Organization Karma Bahena MD, [facility] Address [address] [place] [address] Phone Care Team Providers Care Dopster Name Role Phone Karma Bahena PP Unavailable CCM Unavailable Summary Purpose Interface Exchange Insurance Providers Payer name Policy type / Coverage type Covered republican ID Effective Begin Date Effective End Date WPS Medicare Part B Medicare Part B [id number] 2018 Unknown AARP Medicare Part B [id number] 2018 Unknown Family history Sister Diagnosis Age [...] Unknown House 03/15/[address]: 004375243 Never smoker 03/15/2011 Has the patient ever used illegal drugs? Unknown Has never used illegal drugs 03/15/2011 Allergies, Adverse Reactions, Alerts Substance Reaction Codes Entered Date Inactivated Date Status BACTINE RxNorm: 831177 03/04/2011 No Inactive Date Active MICONAZOLE RxNorm: 6932 03/04/2011 No Inactive Date Active NEOSPORIN RxNorm: 517700 03/04/2011 No Inactive Date Active NEOMYCIN RxNorm: 7299 03/04/2011 No Inactive Date Active CORTISPORIN RxNorm: 86666 03/04/2011 No Inactive Date Active bactrim RxNorm: 408602 03/13/2012 No Inactive Date Active AUGMENTIN diarrhea RxNorm: 292738 2016 No Inactive Date Active METRONIDAZOLE Unknown 03/04/2011 No Inactive Date Active NYSTATIN Unknown 03/04/2011 No Inactive Date Active PNEUMOCOCCAL VACCINE Unknown 03/04/2011 No Inactive Date Active Past Medical History Illness Codes Condition Status Onset Date Resolved Date Hypo-osmolality and hyponatremia ICD-9: 276.1 ICD-10: E87.1 Active 12/10/2018 Unknown Localized edema ICD-9: 782.3 ICD-10: R60.0 Active 06/09/2016 Unknown Paroxysmal atrial fibrillation ICD-9: 427.31 ICD-10: I48.0 Active 12/10/2018 Unknown Chronic atrial fibrillation ICD-9: 427.31 ICD-10: I48.2 Active 12/25/2013 Unknown Cough ICD-9: 786.2 ICD-10: R05 Active 11/23/2016 Unknown Major depressive disorder, recurrent, 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 Active 12/10/2018 Unknown Muscle weakness (generalized) ICD-9: 728.87 ICD-10: M62.81 Active 12/10/2018 Unknown Acute laryngopharyngitis ICD-9: 465.0 ICD-10: J06.0 [...] 401.9 ICD-10: I10 Active 12/25/2013 Unknown Other emt intermediate (current) drug therapy ICD-9: V58.83 ICD-10: Z79.899 Active 01/31/2018 Unknown Encounter for general adult medical examination with abnormal findings ICD-9: V70.0 ICD-10: Z00.01 Active 01/23/2017 Unknown Allergic rhinitis due to pollen ICD-9: 477.0 ICD-10: J30.1 Active 12/20/2015 Unknown Age-related osteoporosis without current pathological fracture ICD-9: 733.00 ICD-10: M81.0 Active 07/11/2014 Unknown Encounter for immunization ICD-9: V04.81 ICD-10: Z23 Active 04/18/2012 Unknown Dysphonia ICD-9: 784.42 ICD-10: R49.0 Active [...] 706.2 ICD-10: L72.0 Active 02/01/2016 Unknown Other prison (current) drug therapy ICD-9: V58.69 ICD-10: Z79.899 [...] Problems Condition Codes Effective Dates Condition Status Hypo-osmolality and hyponatremia ICD-9: 276.1 ICD-10: E87.1 12/10/2018 Active Localized edema ICD-9: 782.3 ICD-10: R60.0 06/09/2016 Active Paroxysmal atrial fibrillation ICD-9: 427.31 ICD-10: I48.0 12/10/2018 Active Chronic atrial fibrillation ICD-9: 427.31 ICD-10: I48.2 12/25/2013 Active Cough ICD-9: 786.2 ICD-10: R05 11/23/2016 Active Major depressive disorder, recurrent, 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 12/10/2018 Active Muscle weakness (generalized) ICD-9: 728.87 ICD-10: M62.81 12/10/2018 Active Acute laryngopharyngitis ICD-9: 465.0 ICD-10: J06.0 [...] ICD-9: 401.9 ICD-10: I10 12/25/2013 Active Other prison (current) drug therapy ICD-9: V58.83 ICD-10: Z79.899 01/31/2018 Active Encounter for general adult medical examination with abnormal findings ICD-9: V70.0 ICD-10: Z00.01 01/23/2017 Active Allergic rhinitis due to pollen ICD-9: 477.0 ICD-10: J30.1 12/20/2015 Active Age-related osteoporosis without current pathological fracture ICD-9: 733.00 ICD-10: M81.0 07/11/2014 Active Encounter for immunization ICD-9: V04.81 ICD-10: Z23 04/18/2012 Active Dysphonia ICD-9: 784.42 ICD-10: R49.0 01/19/2017 [...] ICD-9: 706.2 ICD-10: L72.0 02/01/2016 Active Other emt intermediate (current) drug therapy ICD-9: V58.69 ICD-10: [...] Date Status Fill Instructions metoprolol succinate ER 100 mg tablet,extended release 24 hr RxNorm: 185219 1 Tablet(s) PO daily 01/03/2019 09/29/2019 Active diltiazem ER 60 mg capsule,extended release 12 hr RxNorm: 097068 1 Capsule(s) PO Q12H 01/03/2019 No Stop Date Active Lasix 40 mg tablet RxNorm: 143379 1 Tablet(s) PO daily 01/03/2019 No Stop Date Active Lexapro 5 mg tablet RxNorm: 664231 1 Tablet(s) PO QPM 12/18/2018 01/02/2019 Inactive Lexapro 5 mg tablet RxNorm: 701515 1 Tablet(s) PO QPM 12/10/2018 12/17/2018 Inactive Keflex 500 mg capsule RxNorm: 579804 1 Capsule(s) PO TID 12/07/2018 12/13/2018 Inactive digoxin 125 mcg tablet RxNorm: 968944 Tablet(s) every other day 12/06/2018 11/30/2019 Active Keflex 500 mg capsule RxNorm: 231563 1 Capsule(s) PO TID 11/30/2018 12/06/2018 Inactive pantoprazole 40 mg tablet,delayed release RxNorm: 775568 1 TABLET(S) PO DAILY 11/29/2018 11/23/2019 Active amlodipine 5 mg tablet RxNorm: 654502 Tablet(s) 1/2 TABLET(S) PO DAILY MAY TAKE AN EXTRA 1/2 PILL AT THE END OF THE DAY IF BLOOD PRESSURE IS ELEVATED OVER 140 11/29/2018 01/02/2019 Inactive cyclobenzaprine 5 mg tablet RxNorm: 843621 1/2 Tablet(s) PO TID TABLET(S) 1/2 TABLET(S) PO Q8 NEEDED MUSCLE SPASMS 10/31/2018 04/28/2019 Active Imvexxy Starter Pack 4 mcg vaginal insert, dose pack RxNorm: 4002717 1 dose VAG BIW 10/31/2018 01/02/2019 Inactive Voltaren 1 % topical gel RxNorm: 819638 2 Gram(s) TOP QID on left shoulder and bilateral hands 10/17/2018 05/14/2019 Active PA APPROVED UNTIL JUL 09 2019 [id number] amlodipine 5 mg tablet RxNorm: 435822 1/2 TABLET(S) PO DAILY MAY TAKE AN EXTRA 1/2 PILL AT THE END OF THE DAY IF BLOOD PRESSURE IS ELEVATED OVER 140 10/15/2018 11/28/2018 Inactive Patient requests 90 days supply Voltaren 1 % topical gel RxNorm: 621991 2 Gram(s) TOP QID on left shoulder and bilateral hands 10/09/2018 10/16/2018 Inactive levothyroxine 75 mcg tablet RxNorm: 271071 1 Tablet(s) PO daily 09/19/2018 01/02/2019 Inactive Keflex 500 mg capsule RxNorm: 668073 1 Capsule(s) PO TID 09/12/2018 09/18/2018 Inactive spironolactone 25 mg tablet RxNorm: 777532 1 Tablet(s) PO BID 08/14/2018 11/06/2019 Active see new directions and quantity cyclobenzaprine 5 mg tablet RxNorm: 791517 Tablet(s) TABLET(S) 1/2 TABLET(S) PO Q8 NEEDED MUSCLE SPASMS 08/14/2018 10/30/2018 Inactive Nitro-Bid 2 % transdermal ointment RxNorm: 405170 1 dime size amount TD BID to fingers and toes 08/14/2018 09/12/2018 Inactive cyclobenzaprine 5 mg tablet RxNorm: 332552 TABLET(S) 1/2 TABLET(S) PO Q8 NEEDED MUSCLE SPASMS 08/06/2018 08/13/2018 Inactive amlodipine 5 mg tablet RxNorm: 569316 1/2 Tablet(s) PO daily may take an extra 1/2 pill at the end of the day if blood pressure is elevated over 140 07/26/2018 10/14/2018 Inactive cefdinir 300 mg capsule RxNorm: 205480 1 Capsule(s) PO BID 06/20/2018 06/26/2018 Inactive cefdinir 300 mg capsule RxNorm: 884483 1 Capsule(s) PO BID 06/20/2018 06/19/2018 Inactive metoprolol succinate ER 50 mg tablet,extended release 24 hr RxNorm: 095680 1.5 Tablet(s) daily 06/15/2018 01/02/2019 Inactive sucralfate 100 mg/mL oral suspension RxNorm: 520610 2 Teaspoon(s) PO TID as needed with reflux symptoms 06/04/2018 No Stop Date Active Vesicare 10 mg tablet RxNorm: 277065 1 TABLET(S) PO EVERY OTHER DAY 05/14/2018 01/02/2019 Inactive levothyroxine 50 mcg tablet RxNorm: 379207 1 TABLET(S) PO DAILY 04/30/2018 09/18/2018 Inactive Patient requests 90 days supply spironolactone 25 mg tablet RxNorm: 345654 1 Tablet(s) PO daily 03/14/2018 08/13/2018 Inactive levothyroxine 50 mcg tablet RxNorm: 529562 1 Tablet(s) PO daily 02/01/2018 04/29/2018 Inactive Eliquis 2.5 mg tablet RxNorm: 5845360 1 Tablet(s) PO BID 01/31/2018 02/20/2018 Inactive levothyroxine 50 mcg tablet RxNorm: 710084 1 Tablet(s) PO daily 01/31/2018 01/31/2018 Inactive Eliquis 2.5 mg tablet RxNorm: 2846114 TAKE 1 TABLET BY MOUTH TWICE DAILY 01/23/2018 07/21/2018 Inactive metoprolol succinate ER 50 mg tablet,extended release 24 hr RxNorm: 366553 1 TABLET(S) PO DAILY 01/23/2018 01/30/2018 Inactive metoprolol succinate ER 50 mg tablet,extended release 24 hr RxNorm: 305235 1.5 Tablet(s) daily 01/22/2018 06/14/2018 Inactive lisinopril 20 mg tablet RxNorm: 757290 1/2 Tablet(s) daily 01/19/2018 01/21/2018 Inactive Patient requests 90 days supply Singulair 10 mg tablet RxNorm: 839204 TAKE 1 TABLET BY MOUTH AT BEDTIME 01/18/2018 04/17/2018 Inactive Patient requests 90 days supply Singulair 10 mg tablet RxNorm: 792465 Tablet(s) PO 01/17/2018 01/17/2018 Inactive digoxin 125 mcg tablet RxNorm: 799813 1 TABLET(S) PO DAILY 01/03/2018 12/05/2018 Inactive Symbicort 160 mcg-4.5 mcg/actuation HFA aerosol inhaler RxNorm: 1644452 2 Puff(s) INH BID 12/14/2017 04/12/2018 Inactive please dispense an aerochamber for patient as well as her symbicort cyclobenzaprine 5 mg tablet RxNorm: 369112 Tablet(s) 1/2 TABLET(S) PO Q8 NEEDED MUSCLE SPASMS 12/14/2017 08/05/2018 Inactive pantoprazole 40 mg tablet,delayed release RxNorm: 492521 1 Tablet(s) PO daily 12/14/2017 11/28/2018 Inactive ProAir RespiClick 90 mcg/actuation breath activated RxNorm: 7238829 1-2 INH QID as needed shortness of breath 12/14/2017 07/11/2018 Inactive cyclobenzaprine 5 mg tablet RxNorm: 712825 1/2 TABLET(S) PO Q8 NEEDED MUSCLE SPASMS 12/08/2017 12/13/2017 Inactive betamethasone dipropionate 0.05 % topical ointment RxNorm: 327444 1 Application TOP TID use topically on the rectal tissue three times daily x 1 week then as needed 11/13/2017 01/02/2019 Inactive Premarin 0.625 mg/gram vaginal cream RxNorm: 152945 1/2 GRAM(S) VAG TIW 11/13/2017 10/30/2018 Inactive cyclobenzaprine 5 mg tablet RxNorm: 729488 1/2 TABLET(S) PO Q8 NEEDED MUSCLE SPASMS 10/17/2017 12/07/2017 Inactive Vesicare 10 mg tablet RxNorm: 410200 1 Tablet(s) PO every other day 10/17/2017 04/14/2018 Inactive lisinopril 20 mg tablet RxNorm: 423380 1 TABLET(S) PO DAILY 10/02/2017 01/18/2018 Inactive Patient requests 90 days supply levothyroxine 75 mcg tablet RxNorm: 242884 1 TABLET(S) PO DAILY 09/25/2017 01/30/2018 Inactive spironolactone 25 mg tablet RxNorm: 031188 1 TABLET(S) PO DAILY 08/16/2017 03/13/2018 Inactive cyclobenzaprine 5 mg tablet RxNorm: 175260 1/2 TABLET(S) PO Q8 NEEDED MUSCLE SPASMS 08/16/2017 10/16/2017 Inactive Eliquis 2.5 mg tablet RxNorm: 4311747 TAKE 1 TABLET BY MOUTH TWICE DAILY 07/26/2017 01/21/2018 Inactive cyclobenzaprine 5 mg tablet RxNorm: 153454 1/2 Tablet(s) PO Q8 as needed muscle spasms 06/19/2017 08/15/2017 Inactive lisinopril 20 mg tablet RxNorm: 667273 1 TABLET(S) PO DAILY 06/12/2017 10/01/2017 Inactive metoprolol succinate ER 50 mg tablet,extended release 24 hr RxNorm: 561973 1 TABLET(S) PO DAILY 04/07/2017 01/01/2018 Inactive spironolactone 25 mg tablet RxNorm: 003335 1 Tablet(s) PO daily 03/27/2017 03/13/2018 Inactive acyclovir 800 mg tablet RxNorm: 591989 1 Tablet(s) PO TID 03/21/2017 03/30/2017 Inactive acyclovir 800 mg tablet RxNorm: 116874 1 Tablet(s) PO TID 03/21/2017 03/20/2017 Inactive levothyroxine 75 mcg tablet RxNorm: 252803 1 Tablet(s) PO daily 03/16/2017 09/11/2017 Inactive spironolactone 25 mg tablet RxNorm: 925978 1 TABLET(S) PO DAILY 02/09/2017 03/26/2017 Inactive lisinopril 20 mg tablet RxNorm: 613801 1 TABLET(S) PO DAILY 01/02/2017 05/31/2017 Inactive Zithromax Z-Claudio 250 mg tablet RxNorm: 931767 1 Tablet(s) PO UD 11/29/2016 12/03/2016 Inactive ZPACK Keflex 500 mg capsule RxNorm: 646771 1 Capsule(s) PO TID 11/23/2016 12/02/2016 Inactive guaifenesin 400 mg tablet RxNorm: 902389 1 Tablet(s) PO Q6 as needed 11/23/2016 11/27/2016 Inactive omeprazole 40 mg capsule,delayed release RxNorm: 175919 1 Capsule(s) PO QPM 11/02/2016 12/13/2017 Inactive digoxin 125 mcg tablet RxNorm: 311282 1 TABLET(S) PO DAILY 10/27/2016 07/23/2017 Inactive cyclobenzaprine 5 mg tablet RxNorm: 073388 1/2 Tablet(s) PO Q8 PRN 10/25/2016 06/18/2017 Inactive prn muscle spasms Augmentin 500 mg-125 mg tablet RxNorm: 643063 1 Tablet(s) PO BID 10/24/2016 11/02/2016 Inactive spironolactone 25 mg tablet RxNorm: 650078 1 Tablet(s) PO daily 07/27/2016 02/08/2017 Inactive Lasix 20 mg tablet RxNorm: 989007 Tablet(s) PRN one to two times a week if needed 07/27/2016 01/02/2019 Inactive Patient requests 90 days supply Diflucan 150 mg tablet RxNorm: 559963 1 Tablet(s) PO daily 07/27/2016 08/02/2016 Inactive lisinopril 20 mg tablet RxNorm: 973821 1 Tablet(s) PO daily 07/12/2016 01/01/2017 Inactive Lasix 20 mg tablet RxNorm: 772419 1 TABLET(S) PO EVERY OTHER DAY EVERY OTHER DAY 06/10/2016 07/26/2016 Inactive Patient requests 90 days supply potassium chloride ER 10 mEq capsule,extended release RxNorm: 837799 1 CAPSULE(S) PO EVERY OTHER DAY 06/10/2016 07/26/2016 Inactive Patient requests 90 days supply potassium chloride ER 10 mEq capsule,extended release RxNorm: 916087 1 Capsule(s) PO every other day 06/09/2016 06/09/2016 Inactive Lasix 20 mg tablet RxNorm: 384266 1 Tablet(s) PO every other day every other day 06/09/2016 06/09/2016 Inactive levothyroxine 88 mcg tablet RxNorm: 331529 1 Tablet(s) PO daily 05/11/2016 11/06/2016 Inactive Premarin 0.625 mg/gram vaginal cream RxNorm: 573513 1/2 Gram(s) VAG TIW 03/24/2016 03/18/2017 Inactive metoprolol succinate ER 50 mg tablet,extended release 24 hr RxNorm: 896881 1 Tablet(s) PO daily 03/24/2016 03/18/2017 Inactive pantoprazole 40 mg tablet,delayed release RxNorm: 287526 1 Tablet(s) PO daily 02/08/2016 11/01/2016 Inactive betamethasone dipropionate 0.05 % topical ointment RxNorm: 832993 1 Application TOP TID use topically on the rectal tissue three times daily x 1 week then as needed 02/02/2016 11/12/2017 Inactive pantoprazole 40 mg tablet,delayed release RxNorm: 377155 1 Tablet(s) PO daily 2016 02/07/2016 Inactive alprazolam 0.25 mg tablet RxNorm: 965568 1 Tablet(s) PO Q6 as needed 12/04/2015 01/02/2019 Inactive Vesicare 10 mg tablet RxNorm: 735161 1 Tablet(s) PO every other day 11/03/2015 10/16/2017 Inactive alprazolam 0.25 mg tablet RxNorm: 157547 1 Tablet(s) PO Q6 as needed 11/03/2015 12/03/2015 Inactive Premarin 0.625 mg/gram vaginal cream RxNorm: 672445 1/2 Gram(s) VAG TIW 11/03/2015 03/23/2016 Inactive levothyroxine 88 mcg tablet RxNorm: 241120 1 Tablet(s) PO daily 11/03/2015 05/10/2016 Inactive Diflucan 150 mg tablet RxNorm: 296631 1 Tablet(s) PO daily 10/19/2015 10/25/2015 Inactive cetirizine 10 mg chewable tablet RxNorm: 0416901 1 Tablet(s) PO daily 10/13/2015 11/11/2015 Inactive cetirizine 10 mg capsule RxNorm: 4945151 1 Capsule(s) PO daily 10/13/2015 11/11/2015 Inactive Vesicare 10 mg tablet RxNorm: 342769 1/2 TABLET(S) PO BID 09/21/2015 11/02/2015 Inactive betamethasone dipropionate 0.05 % topical ointment RxNorm: 831704 1 Application TOP TID use topically on the rectal tissue three times daily x 1 week then as needed 09/15/2015 02/01/2016 Inactive lisinopril 20 mg tablet RxNorm: 125512 1 Tablet(s) PO daily 09/01/2015 07/11/2016 Inactive digoxin 125 mcg tablet RxNorm: 060483 1 Tablet(s) PO daily 09/01/2015 08/25/2016 Inactive Augmentin 500 mg-125 mg tablet RxNorm: 826970 1 Tablet(s) PO TID 05/26/2015 06/04/2015 Inactive Pyridium 200 mg tablet RxNorm: 2010869 1 Tablet(s) PO TID 05/26/2015 05/27/2015 Inactive levothyroxine 88 mcg tablet RxNorm: 028548 1 Tablet(s) PO daily except 1/2 pill on monday and 05/07/2015 11/02/2015 Inactive digoxin 125 mcg tablet RxNorm: 199023 1 Tablet(s) PO daily 05/07/2015 08/31/2015 Inactive lisinopril 20 mg tablet RxNorm: 126135 1 TABLET(S) PO BID 04/13/2015 09/01/2015 Inactive Coumadin 1 mg tablet RxNorm: 474472 1 TABLET(S) PO DAILY 03/31/2015 08/31/2015 Inactive Coumadin 2 mg tablet RxNorm: 186947 4MG IN AM AND 1MG AT NIGHT TABLET(S) PO DAILY DIRECTED. 03/31/2015 08/31/2015 Inactive levothyroxine 88 mcg tablet RxNorm: 726947 1 Tablet(s) PO daily 03/23/2015 05/06/2015 Inactive alprazolam 0.25 mg tablet RxNorm: 485487 Tablet(s) PO 03/23/2015 04/06/2015 Inactive levothyroxine 88 mcg tablet RxNorm: 674070 1 Tablet(s) PO daily 01/28/2015 03/22/2015 Inactive levothyroxine 88 mcg tablet RxNorm: 715041 1 Tablet(s) PO daily 01/28/2015 01/27/2015 Inactive diltiazem ER 120 mg capsule,extended release RxNorm: 078198 1 Capsule(s) PO BID patient would like 4 months at a time 01/06/2015 09/28/2015 Inactive digoxin 125 mcg tablet RxNorm: 336960 Tablet(s) 1 TABLET(S) PO DAILY 12/24/2014 12/23/2014 Inactive pt will be paying [employer] (On $4 list)Patient requests 90 days supply digoxin 125 mcg tablet RxNorm: 406597 Tablet(s) 1 TABLET(S) PO DAILY M W F Sat and 2 tabs on T 12/24/2014 05/06/2015 Inactive pt will be paying [employer] (On $4 list)Patient requests 90 days supply dicyclomine 20 mg tablet RxNorm: 677833 1 Tablet(s) PO daily 11/17/2014 08/31/2015 Inactive one ac dinner and up to tid prn levothyroxine 88 mcg tablet RxNorm: 315497 1 Tablet(s) PO daily 11/03/2014 01/27/2015 Inactive Premarin 0.625 mg/gram vaginal cream RxNorm: 134674 1 APPLICATION VAG 1 APPLICATOR PER VAGINA 3 TIMES PER WEEK 11/03/2014 07/30/2015 Inactive digoxin 125 mcg tablet RxNorm: 682523 1 TABLET(S) PO DAILY 09/29/2014 12/23/2014 Inactive pt will be paying [employer] (On $4 list)Patient requests 90 days supply digoxin 125 mcg tablet RxNorm: 967784 1 TABLET(S) PO DAILY 07/11/2014 04/06/2015 Inactive Vesicare 10 mg tablet RxNorm: 506125 1/2 Tablet(s) PO BID 05/20/2014 05/14/2015 Inactive Levaquin 500 mg tablet RxNorm: 224585 1 Tablet(s) PO daily 05/06/2014 05/08/2014 Inactive take probiotic BID while on ABT Levaquin 500 mg tablet RxNorm: 709673 1 Tablet(s) PO daily 05/02/2014 05/05/2014 Inactive take probiotic BID while on ABT diltiazem ER 120 mg capsule,extended release RxNorm: 908212 1 Capsule(s) PO BID patient would like 4 months at a time 04/29/2014 2015 Inactive Vesicare 10 mg tablet RxNorm: 722871 1/2 Tablet(s) PO BID 04/29/2014 05/19/2014 Inactive lisinopril 20 mg tablet RxNorm: 809000 1 Tablet(s) PO BID 03/20/2014 03/14/2015 Inactive diltiazem 90 mg tablet RxNorm: 551960 1/2 TABLET(S) PO QPM 03/04/2014 04/28/2014 Inactive also 180 q am diltiazem ER 120 mg capsule,extended release RxNorm: 262826 1 Capsule(s) PO daily patient would like 4 months at a time 01/29/2014 04/28/2014 Inactive Vesicare 10 mg tablet RxNorm: 625095 1 Tablet(s) PO QHS 01/14/2014 04/28/2014 Inactive Coumadin 2 mg tablet RxNorm: 138865 4mg in AM and 1mg at night Tablet(s) PO daily as directed. 12/25/2013 03/30/2015 Inactive Metanx 3 mg-35 mg-2 mg tablet RxNorm: 1 Tablet(s) PO daily 12/25/2013 11/02/2015 Inactive digoxin 125 mcg tablet RxNorm: 531649 1 Tablet(s) PO daily 12/25/2013 09/28/2014 Inactive pt will be paying [employer] (On $4 list) Coumadin 2 mg tablet RxNorm: 259384 7.5 wed 5mg other Tablet(s) PO as directed. 12/03/2013 12/24/2013 Inactive omeprazole 20 mg tablet,delayed release RxNorm: 963863 1 Tablet(s) PO BID 11/27/2013 04/28/2014 Inactive Coumadin 2 mg tablet RxNorm: 513646 5 mg daily Tablet(s) PO as directed. 11/26/2013 12/02/2013 Inactive 5 mg daily Xanax 0.25 mg tablet RxNorm: 349998 1 Tablet(s) PO Q6 PRN 11/11/2013 12/25/2013 Inactive alprazolam 0.25 mg tablet RxNorm: 895296 tablet oral 11/11/2013 03/22/2015 Inactive sucralfate 1 gram tablet RxNorm: 289958 1 Tablet(s) PO AC & HS 11/04/2013 11/03/2013 Inactive sucralfate 1 gram tablet RxNorm: 698205 1 Tablet(s) PO AC & HS 11/04/2013 01/02/2014 Inactive Synthroid 100 mcg tablet RxNorm: 451790 1 Tablet(s) PO daily 10/31/2013 10/25/2014 Inactive Synthroid 100 mcg tablet RxNorm: 388390 1 Tablet(s) PO daily 09/30/2013 10/29/2013 Inactive Vesicare 10 mg tablet RxNorm: 721916 1 Tablet(s) PO QHS 09/30/2013 01/13/2014 Inactive Lotemax 0.5 % eye ointment RxNorm: 9180879 ointment opht 09/06/2013 12/10/2013 Inactive levothyroxine 100 mcg tablet RxNorm: 983481 tablet oral 09/05/2013 11/02/2014 Inactive Synthroid 100 mcg tablet RxNorm: 594739 1 Tablet(s) PO daily 09/05/2013 09/29/2013 Inactive Prolia 60 mg/mL Sub-Q Syringe RxNorm: 855159 1 Milliliter(s) SQ 06/25/2013 11/02/2015 Inactive dicyclomine 20 mg tablet RxNorm: 143605 1 Tablet(s) PO daily 06/24/2013 06/18/2014 Inactive one ac dinner and up to tid prn omeprazole 20 mg tablet,delayed release RxNorm: 481575 1 Tablet(s) PO BID 06/24/2013 11/26/2013 Inactive Cipro 500 mg tablet RxNorm: 881230 1 Tablet(s) PO BID 06/20/2013 06/26/2013 Inactive diltiazem ER 120 mg capsule,extended release RxNorm: 715079 1 Capsule(s) PO daily patient would like 4 months at a time 06/03/2013 01/28/2014 Inactive Coumadin 2 mg tablet RxNorm: 021259 as directed Tablet(s) PO as directed. 05/29/2013 11/25/2013 Inactive 5 mg daily Synthroid 88 mcg tablet RxNorm: 898845 1 Tablet(s) PO daily 04/24/2013 04/23/2013 Inactive Synthroid 88 mcg tablet RxNorm: 955589 1 Tablet(s) PO daily 04/24/2013 07/28/2013 Inactive Premarin 0.625 mg/gram vaginal cream RxNorm: 456276 1 Application VAG 1 applicator per vagina 3 times per week 04/23/2013 04/17/2014 Inactive Influenza Virus Vaccine 0.5 mL RxNorm: IM 04/23/2013 04/23/2013 Inactive digoxin 125 mcg tablet RxNorm: 207452 1 Tablet(s) PO daily 02/20/2013 04/20/2013 Inactive pt will be paying [employer] (On $4 list) Digox 125 mcg tablet RxNorm: 7716193 tablet oral 02/13/2013 03/20/2014 Inactive digoxin 125 mcg tablet RxNorm: 329995 1 Tablet(s) PO daily 02/13/2013 02/19/2013 Inactive diltiazem 90 mg tablet RxNorm: 281578 1/2 Tablet(s) PO QPM 02/13/2013 02/07/2014 Inactive also 180 q am Levoxyl 75 mcg tablet RxNorm: 122820 1 Tablet(s) PO 01/16/2013 04/23/2013 Inactive Coumadin 2 mg tablet RxNorm: 534453 6mg daily except 3mg on wed and mon Tablet(s) PO 01/15/2013 05/28/2013 Inactive 5 mg daily Coumadin 2 mg tablet RxNorm: 736012 6mg daily Tablet(s) PO 12/21/2012 01/14/2013 Inactive 5 mg daily silver sulfadiazine 1 % Topical Cream RxNorm: 303766 TOP apply to affected area with each dressing change 12/19/2012 12/25/2013 Inactive cephalexin 500 mg tablet RxNorm: 092063 1 Tablet(s) PO TID 12/11/2012 12/17/2012 Inactive digoxin 125 mcg tablet RxNorm: 098291 1 Tablet(s) PO daily 10/30/2012 02/12/2013 Inactive digoxin 125 mcg tablet RxNorm: 622782 2 tab tue thurs one other days Tablet(s) PO daily 10/23/2012 10/29/2012 Inactive lisinopril 10 mg tablet RxNorm: 096756 1 Tablet(s) PO daily 10/17/2012 08/14/2013 Inactive Cipro 500 mg tablet RxNorm: 889757 1 Tablet(s) PO BID 09/13/2012 09/19/2012 Inactive Coumadin 1 mg tablet RxNorm: 803164 1 Tablet(s) PO daily 09/03/2012 09/02/2012 Inactive Coumadin 1 mg tablet RxNorm: 387173 1 Tablet(s) PO daily 09/03/2012 12/21/2012 Inactive Coumadin 2 mg tablet RxNorm: 246124 Tablet(s) PO 07/25/2012 12/20/2012 Inactive 5 mg daily digoxin 125 mcg tablet RxNorm: 817897 1 Tablet(s) PO daily 06/28/2012 10/22/2012 Inactive Coumadin 2 mg tablet RxNorm: 581933 Tablet(s) PO 06/27/2012 07/24/2012 Inactive 5mg daily except 4mg on monday Coumadin 2 mg tablet RxNorm: 638375 Tablet(s) PO 06/19/2012 06/26/2012 Inactive 5mg tue wed thur sat sun4mg mon frid(has 2mg and 1 mg tab) digoxin 125 mcg tablet RxNorm: 140971 1 Tablet(s) PO daily 05/29/2012 06/27/2012 Inactive Coumadin 2 mg tablet RxNorm: 646435 Tablet(s) PO 05/15/2012 06/18/2012 Inactive 5mg tue thur sat sun4mg mon frid(has 2mg and 1 mg tab) Coumadin 2 mg tablet RxNorm: 437000 Tablet(s) PO 04/25/2012 05/14/2012 Inactive 5mg tue thru sat4mg mon frid sun(has 2mg and 1 mg tab) Metanx 3 mg-35 mg-2 mg tablet RxNorm: 1 Tablet(s) PO BID 04/18/2012 12/24/2013 Inactive dicyclomine 20 mg tablet RxNorm: 828672 1 Tablet(s) PO 04/18/2012 06/23/2013 Inactive one ac dinner and up to tid prn digoxin 125 mcg tablet RxNorm: 790724 Tablet(s) PO daily except .25 on Tuesdays and 04/09/2012 05/28/2012 Inactive omeprazole 20 mg tablet,delayed release RxNorm: 824986 1 Tablet(s) PO BID 04/09/2012 04/03/2013 Inactive digoxin 125 mcg tablet RxNorm: 108081 1 Tablet(s) PO UD daily except none on Tuesdays and 03/13/2012 04/08/2012 Inactive Premarin 0.625 mg/gram Vaginal Cream RxNorm: 240804 1 Application VAG 1 applicator per vagina 3 times per week 02/20/2012 02/13/2013 Inactive omeprazole 20 mg tablet,delayed release RxNorm: 703738 1 Tablet(s) PO BID 02/13/2012 04/08/2012 Inactive Vesicare 10 mg tablet RxNorm: 015221 1 Tablet(s) PO QHS 02/13/2012 02/06/2013 Inactive Diflucan 150 mg tablet RxNorm: 074054 1 Tablet(s) PO daily 02/13/2012 02/19/2012 Inactive omeprazole 20 mg tablet,delayed release RxNorm: 751724 1 Tablet(s) PO BID 01/06/2012 02/12/2012 Inactive Calcium 600 + D(3) 600 mg (1,500)-200 unit Tab RxNorm: 956796 2 Tablet(s) PO BID 01/06/2012 08/31/2015 Inactive diltiazem 90 mg tablet RxNorm: 685645 1/2 Tablet(s) PO QPM 12/26/2011 02/12/2013 Inactive also 180 q am diltiazem ER 180 mg Cap RxNorm: 151696 1 Capsule(s) PO QAM 12/26/2011 04/08/2012 Inactive 45mg q hs Flagyl 500 mg Tab RxNorm: 267065 1 Tablet(s) PO BID 12/14/2011 12/20/2011 Inactive dicyclomine 10 mg Cap RxNorm: 780874 1 Capsule(s) PO AC & HS 12/01/2011 12/25/2011 Inactive Levaquin 500 mg Tab RxNorm: 178351 1 Tablet(s) PO daily 11/23/2011 11/29/2011 Inactive Rocephin 500 mg Solution for Injection RxNorm: 4592841 Inj 11/23/2011 11/23/2011 Inactive acyclovir 400 mg Tab RxNorm: 201472 1 Tablet(s) PO QID 11/10/2011 11/19/2011 Inactive acyclovir 400 mg Tab RxNorm: 628036 1 Tablet(s) PO QID 11/10/2011 11/09/2011 Inactive lisinopril 20 mg Tab RxNorm: 523559 1 Tablet(s) PO daily 10/03/2011 11/27/2011 Inactive lisinopril 20 mg Tab RxNorm: 723936 1 Tablet(s) PO daily 08/08/2011 10/02/2011 Inactive Reclast 5 mg/100 mL IV RxNorm: 160050 Milliliter(s) IV Yearly 06/08/2011 01/16/[address] Hansen managebrad Rocephin 500 mg Solution for Injection RxNorm: 9187980 1 Milliliter(s) Inj 03/04/2011 08/08/2011 Inactive Ceftin 500 mg Tab RxNorm: 118126 1 Tablet(s) PO BID 03/04/2011 08/08/2011 Inactive Zyrtec 10 mg tablet RxNorm: 1845787 1 Tablet(s) PO daily No Start Date Active Vitamin D3 1,000 unit tablet RxNorm: 929495 2 Tablet(s) PO daily No Start Date Active duloxetine 20 mg capsule,delayed release RxNorm: 016333 1 Capsule(s) PO daily No Start Date Active Stool Softener 100 mg tablet RxNorm: 7422860 2 Tablet(s) PO QHS No Start Date Active Beano tablet RxNorm: 2-3 Tablet(s) PO as needed No Start Date Active ipratropium-albuterol 0.5 mg-3 mg(2.5 mg base)/3 mL nebulization soln RxNorm: 6100341 1 INH TID No Start Date Active Probiotic Pearls 15 mg (1 billion cell) capsule,delayed release RxNorm: 1 Capsule(s) PO daily No Start Date Active loperamide 2 mg tablet RxNorm: 321119 1 Tablet(s) PO as needed diarrhea No Start Date Active Miralax 17 gram oral powder packet RxNorm: 149660 1/2 packet PO QHS No Start Date Active multivitamin Tab RxNorm: 1 Tablet(s) PO daily No Start Date Active Tylenol Extra Strength 500 mg tablet RxNorm: 745175 2 Tablet(s) PO as needed No Start Date Active magnesium 500 mg tablet RxNorm: 1 Tablet(s) PO daily No Start Date Active Combigan 0.2 %-0.5 % eye drops RxNorm: 416823 1 Drop(s) OPH BID No Start Date Active 1 drop twice daily left eye Tatiana Allergy 180 mg tablet RxNorm: 199610 1 Tablet(s) PO daily No Start Date Active simethicone 125 mg tablet RxNorm: 232902 1 Tablet(s) PO as needed No Start Date Active potassium chloride 20 mEq oral packet RxNorm: 9552627 1 Tablet(s) PO daily No Start Date Active lorazepam 0.5 mg tablet RxNorm: 1/2 Tablet(s) PO QHS No Start Date Active 1/2 tab daily and every 6 hours prn anxiety ProAir RespiClick 90 mcg/actuation breath activated RxNorm: 3507941 2 INH as needed No Start Date Active levothyroxine 75 mcg tablet RxNorm: 849354 1 Tablet(s) PO daily No Start Date Active Lotemax 0.5 % eye drops,suspension RxNorm: 054285 1 Drop(s) OPH right eye BID No Start Date Active sodium chloride 1 gram tablet RxNorm: 248371 1 Tablet(s) PO daily No Start Date Active Levoxyl 50 mcg tablet RxNorm: 160955 1 Tablet(s) PO daily No Start Date 01/15/2013 Inactive lisinopril-hydrochlorothiazide 20 mg-25 mg Tab RxNorm: 953177 1 Tablet(s) PO daily No Start Date 08/07/2011 Inactive Metanx 3 mg-35 mg-2 mg tablet RxNorm: 1 Tablet(s) PO daily No Start Date 04/17/2012 Inactive diltiazem CD 120 mg capsule,extended release 24 hr RxNorm: 494605 1 Capsule(s) PO daily No Start Date 09/28/2015 Inactive lisinopril 20 mg tablet RxNorm: 653744 Tablet(s) PO No Start Date Active Lumigan 0.01 % Eye Drops RxNorm: 0696645 1 Drop(s) OPH daily Left eye No Start Date 12/10/2013 Inactive prednisolone acetate 1 % Eye Drops, Susp RxNorm: 3311195 1 Drop(s) OPH BID 1 drop right eye am and hs No Start Date 11/02/2015 Inactive Eliquis 5 mg tablet RxNorm: 3831288 1 Tablet(s) PO BID No Start Date 06/08/2016 Inactive potassium gluconate (bulk) Misc RxNorm: Miscellaneous No Start Date 12/25/2011 Inactive Calcium 600 + D(3) 600 mg (1,500)-200 unit Tab RxNorm: 228445 3 Tablet(s) PO daily No Start Date 2012 Inactive Zyrtec 10 mg tablet RxNorm: 3325992 1 Tablet(s) PO daily No Start Date 08/02/2016 Inactive Synthroid 100 mcg tablet RxNorm: 998619 1 Tablet(s) PO daily No Start Date 09/04/2013 Inactive metoprolol succinate ER 50 mg tablet,extended release 24 hr RxNorm: 505692 1 Tablet(s) PO daily No Start Date 03/23/2016 Inactive Carafate 100 mg/mL oral suspension RxNorm: 695634 2 Teaspoon(s) PO as needed with reflux symptoms No Start Date 06/03/2018 Inactive Metanx 3 mg-35 mg-2 mg tablet RxNorm: 1 Tablet(s) PO daily 2pm No Start Date 11/02/2015 Inactive Lexapro 5 mg tablet RxNorm: 774626 1 Tablet(s) PO daily No Start Date 08/18/2015 Inactive Iron (dried) oral RxNorm: 15084 oral No Start Date 11/02/2015 Inactive timolol 0.5 % Eye Drops RxNorm: 286052 1 Drop(s) OPH daily left eye No Start Date 12/18/2013 Inactive multivitamin Cap RxNorm: 1 Capsule(s) PO daily No Start Date 12/25/2011 Inactive dicyclomine 10 mg Cap RxNorm: 420450 2 Capsule(s) PO daily No Start Date 11/30/2011 Inactive diltiazem 30 mg tablet RxNorm: 510849 1 Tablet(s) PO Q6 No Start Date 01/02/2019 Inactive silver sulfadiazine 1 % Topical Cream RxNorm: 692618 TOP apply to affected area with each dressing change No Start Date 12/18/2012 Inactive magnesium oxide 400 mg Tab RxNorm: 977230 1 Tablet(s) PO daily No Start Date 11/02/2015 Inactive Pradaxa 75 mg Cap RxNorm: 3410562 1 Capsule(s) PO BID No Start Date 04/09/2012 Inactive magnesium oxide 400 mg Tab RxNorm: 840698 2 Tablet(s) PO daily magnesium plus zinc No Start Date 12/25/2011 Inactive biotin 1000 mg RxNorm: 1 PO daily No Start Date 12/25/2011 Inactive Synthroid 50 mcg Tab RxNorm: 581558 Tablet(s) PO No Start Date 12/25/2011 Inactive diltiazem ER 180 mg Cap RxNorm: 482898 1 Capsule(s) PO daily No Start Date 12/25/2011 Inactive Lipitor 10 mg tablet RxNorm: 638206 1 Tablet(s) PO daily No Start Date 01/02/2019 Inactive 1 D 3 1000 iu Oral RxNorm: Oral No Start Date 12/25/2011 Inactive Coumadin 2 mg tablet RxNorm: 820473 Tablet(s) PO No Start Date 04/24/2012 Inactive 5mg tue lebo1ib mon fri sat sun(has 2mg and 1 mg tab) dicyclomine 20 mg tablet RxNorm: 307717 Tablet(s) PO No Start Date 04/17/2012 Inactive one ac dinner and up to tid prn lactobacillus acidophilus tablet RxNorm: 1 Tablet(s) PO daily No Start Date 11/03/2015 Inactive Eliquis 2.5 mg tablet RxNorm: 2621527 1 Tablet(s) PO BID No Start Date 07/25/2017 Inactive Levoxyl 75 mcg Tab RxNorm: 603856 1 Tablet(s) PO daily No Start Date 10/02/2011 Inactive digoxin 125 mcg tablet RxNorm: 382245 1 Tablet(s) PO daily No Start Date 03/12/2012 Inactive pantoprazole 40 mg tablet,delayed release RxNorm: 855137 1 Tablet(s) PO BID No Start Date 01/04/2016 Inactive cyclobenzaprine 5 mg tablet RxNorm: 801326 1/2 Tablet(s) PO Q8 PRN No Start Date 10/24/2016 Inactive diltiazem 90 mg Tab RxNorm: 391920 1/2 Tablet(s) PO QPM No Start Date 12/25/2011 Inactive Mirapex 1 mg Tab RxNorm: 160776 1 Tablet(s) PO QHS No Start Date 12/25/2011 Inactive Xanax 0.25 mg tablet RxNorm: 429609 1 Tablet(s) PO Q6 PRN No Start Date 11/10/2013 Inactive Lexapro 5 mg tablet RxNorm: 210883 1 Tablet(s) PO daily No Start Date 01/02/2019 Inactive Premarin 0.625 mg/gram Vaginal Cream RxNorm: 163251 1 Application VAG 1 applicator per vagina 3 times per week No Start Date 02/19/2012 Inactive Synthroid 75 mcg Tab RxNorm: 406467 1 Tablet(s) PO daily No Start Date 04/17/2012 Inactive lisinopril 40 mg Tab RxNorm: 649202 1 Tablet(s) PO daily No Start Date 12/25/2011 Inactive Glucosamine Chondroitin Complex Advanced [id number] Tab RxNorm: 2 Tablet(s) PO daily No Start Date 08/08/2011 Inactive famotidine 20 mg tablet RxNorm: 056006 1 Tablet(s) PO QAM No Start Date 11/02/2015 Inactive cranberry extract 250 mg Tab RxNorm: 760819 2 Tablet(s) PO daily No Start Date 08/08/2011 Inactive Vitamin D3 1,000 unit capsule RxNorm: 355805 1 Capsule(s) PO daily No Start Date 08/31/2015 Inactive aspirin 81 mg Tab, Delayed Release RxNorm: 518999 1 Tablet(s) PO daily No Start Date 08/31/2015 Inactive diltiazem ER 120 mg capsule,extended release RxNorm: 192803 1 Capsule(s) PO daily patient would like 4 months at a time No Start Date 06/02/2013 Inactive omeprazole 20 mg Tab, Delayed Release RxNorm: 929529 2 Tablet(s) PO QHS No Start Date 2012 Inactive lisinopril 10 mg tablet RxNorm: 293296 1/2 Tablet(s) PO daily No Start Date 10/16/2012 Inactive Pred Forte 1 % Eye Drops RxNorm: 141052 1 Drop(s) OPH daily right eye No Start Date 12/25/2013 Inactive calcium carbonate 400 mg Chewable Tab RxNorm: 918454 1 Tablet(s) PO daily No Start Date 08/08/2011 Inactive Vesicare 10 mg tablet RxNorm: 351849 1 Tablet(s) PO QHS No Start Date 02/12/2012 Inactive Symbicort 160 mcg-4.5 mcg/actuation HFA aerosol inhaler RxNorm: 7197745 2 Puff(s) INH BID No Start Date 12/13/2017 Inactive potassium 99 mg tablet RxNorm: 1 Tablet(s) PO QPM No Start Date 12/25/2013 Inactive timolol 0.25 % Eye Drops RxNorm: 711411 1 Drop(s) OPH daily Left eye No Start Date 04/17/2012 Inactive diltiazem ER 90 mg capsule,extended release 12 hr RxNorm: 380854 1/2 Capsule(s) PO QPM No Start Date 04/28/2014 Inactive cyclobenzaprine 5 mg Tab RxNorm: 617595 1/2-1 Tablet(s) PO Q8 PRN No Start Date 12/25/2011 Inactive 1/2 - 1 tab q 8hrs prn muscle spasms Medication Administered Medication Codes Instructions Start Date Status Influenza Virus Vaccine 0.5 mL RxNorm: 04/23/2013 No longer Active Rocephin 500 mg Solution for Injection RxNorm: 6746112 11/23/2011 No longer Active Immunizations Vaccine Codes [...] 04/18/2012 completed Assessments Condition Codes Effective Dates Localized edema ICD-10: R60.0 ICD-9: 782.3 01/03/2019 Paroxysmal atrial fibrillation ICD-10: I48.0 ICD-9: 427.31 01/03/2019 Hypo-osmolality and hyponatremia ICD-10: E87.1 ICD-9: 276.1 01/03/2019 Major depressive disorder, recurrent, 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 ICD-9: 296.31 12/10/2018 Muscle weakness (generalized) ICD-10: M62.81 ICD-9: 728.87 12/10/2018 Cough ICD-10: R05 ICD-9: 786.2 12/06/2018 Chronic [...] hypertension ICD-10: I10 ICD-9: 401.9 01/31/2018 Other emt intermediate (current) drug therapy ICD-10: Z79.899 ICD-9: V58.83 01/31/2018 Encounter for general adult medical examination with abnormal findings ICD-10: Z00.01 ICD-9: V70.0 01/17/2018 Allergic rhinitis due to pollen ICD-10: J30.1 ICD-9: 477.0 12/14/2017 Encounter for immunization ICD-10: Z23 ICD-9: V04.81 03/27/2017 Age-related osteoporosis without current pathological fracture ICD-10: M81.0 ICD-9: 733.00 03/27/2017 Dysphonia ICD-10: R49.0 ICD-9: 784.42 01/19/2017 [...] hemorrhoids ICD-10: K64.0 ICD-9: 455.6 03/24/2016 Other emt intermediate (current) drug therapy ICD-10: Z79.899 ICD-9: V58.69 [...] Visit Reason For Visit Effective Dates Notes Hospital Follow Up 01/03/2019 cough 12/10/2018 sore throat 12/06/2018 cough 11/30/2018 myalgias 10/31/2018 [...] 05/26/2015 foot pain 05/21/2015 right leg to br[place] vaccination against pneumonia 05/13/2015 vertigo 05/07/2015 abdominal [...] Observation Code Item Item Code Result Date Metabolic Ord15 NA 127 mEq/L 01/04/2019 Metabolic Ord15 K 4.4 mEq/L 01/04/2019 Metabolic Ord15 CL 92 mEq/L 01/04/2019 Metabolic Ord15 CO2 26.0 mEq/L 01/04/2019 Metabolic Ord15 GLUCOSE 113 mg/dL 01/04/2019 Metabolic Ord15 BUN 14 mg/dL 01/04/2019 Metabolic Ord15 Creat 0.6 mg/dL 01/04/2019 Metabolic Ord15 B/C Ratio 23.3 Ratio 01/04/2019 Metabolic Ord15 eGFR 101 ml/min/1.73m2 01/04/2019 Metabolic Ord15 Osmo 256 mOsmo 01/04/2019 Metabolic Ord15 ANION GAP 13 01/04/2019 Metabolic Ord15 CALCIUM 7.8 mg/dL 01/04/2019 Magnesium Ord90 Mag 1.7 mg/dL 01/04/2019 Digoxin Ord9 DIGOXIN 0.5 NG/ML 12/06/2018 Comp Metabolic Crd932 NA 124 mEq/L 12/06/2018 Comp Metabolic Qhg810 K 4.7 mEq/L 12/06/2018 Comp Metabolic Vvr325 CL 92 mEq/L 12/06/2018 Comp Metabolic Ich495 CO2 21.0 mEq/L 12/06/2018 Comp Metabolic Rlw259 ANION GAP 16 12/06/2018 Comp Metabolic Fft274 GLUCOSE 116 mg/dL 12/06/2018 Comp Metabolic Tag885 Creat 0.9 mg/dL 12/06/2018 Comp Metabolic Rer699 eGFR 62 ml/min/1.73m2 12/06/2018 Comp Metabolic Wcv143 BUN 24 mg/dL 12/06/2018 Comp Metabolic Tju396 B/C Ratio 26.1 Ratio 12/06/2018 Comp Metabolic Xkd963 CALCIUM 8.5 mg/dL 12/06/2018 Comp Metabolic Guw528 ALK PHOS 53 U/L 12/06/2018 Comp Metabolic Nco573 AST(SGOT) 30 U/L 12/06/2018 Comp Metabolic Ogi890 ALT(SGPT) 35 U/L 12/06/2018 Comp Metabolic Boj824 BILI T 0.7 mg/dL 12/06/2018 Comp Metabolic Hpl450 ALBUMIN 3.2 g/dL 12/06/2018 Comp Metabolic Wjj324 TPRO 6.1 g/dL 12/06/2018 Comp Metabolic Kcz473 GLOB 2.9 g/dL 12/06/2018 Comp Metabolic Uoq586 A/G Ratio 1.1 Ratio 12/06/2018 Comp Metabolic Jsd544 Osmo 255 mOsmo 12/06/2018 Cbc With Differential Ord2 WBC 10.11 K/ul 12/06/2018 Cbc With Differential Ord2 RBC 4.11 M/ul 12/06/2018 Cbc With Differential Ord2 HGB 12.8 g/dl 12/06/2018 Cbc With Differential Ord2 HCT 38.1 % 12/06/2018 Cbc With Differential Ord2 Neut% 81.5 % 12/06/2018 Cbc With Differential Ord2 MCV 92.7 fl 12/06/2018 Cbc With Differential Ord2 Lymph% 5.0 % 12/06/2018 Cbc With Differential Ord2 MCH 31.1 pg 12/06/2018 Cbc With Differential Ord2 [place]% 9.1 % 12/06/2018 Cbc With Differential Ord2 Eos% 4.2 % 12/06/2018 Cbc With Differential Ord2 MCHC 33.6 pg 12/06/2018 Cbc With Differential Ord2 PLT 263 K/ul 12/06/2018 Cbc With Differential Ord2 Baso% 0.2 % 12/06/2018 Cbc With Differential Ord2 RDW 13.2 % 12/06/2018 Cbc With Differential Ord2 Neut ABS# 8.24 K/ul 12/06/2018 Cbc With Differential Ord2 Lymph ABS# 0.51 K/ul 12/06/2018 Cbc With Differential Ord2 [place] ABS# 0.9 K/ul 12/06/2018 Cbc With Differential Ord2 Eos ABS# 0.4 K/ul 12/06/2018 Cbc With Differential Ord2 Baso ABS# 0.0 K/ul 12/06/2018 C RAP A SC [id number] Strep A Negative 11/30/2018 Electrolytes Ord62 NA 132 mEq/L 09/25/2018 Electrolytes Ord62 K 4.1 mEq/L 09/25/2018 Electrolytes Ord62 CL 98 mEq/L 09/25/2018 Electrolytes Ord62 CO2 26.0 mEq/L 09/25/2018 Electrolytes Ord62 ANION GAP 12 09/25/2018 Comp Metabolic Ncc876 NA 130 mEq/L 09/12/2018 Comp Metabolic Cfd980 K 4.2 mEq/L 09/12/2018 Comp Metabolic Erw304 CL 98 mEq/L 09/12/2018 Comp Metabolic Ubk818 CO2 23.0 mEq/L 09/12/2018 Comp Metabolic Kpy933 ANION GAP 13 09/12/2018 Comp Metabolic Dvk181 GLUCOSE 129 mg/dL 09/12/2018 Comp Metabolic Ohz506 Creat 1.0 mg/dL 09/12/2018 Comp Metabolic Jnb005 eGFR 58 ml/min/1.73m2 09/12/2018 Comp Metabolic Ufk350 BUN 28 mg/dL 09/12/2018 Comp Metabolic Jtq196 B/C Ratio 28.9 Ratio 09/12/2018 Comp Metabolic Ldo790 CALCIUM 9.1 mg/dL 09/12/2018 Comp Metabolic Imc958 ALK PHOS 59 U/L 09/12/2018 Comp Metabolic Snv464 AST(SGOT) 21 U/L 09/12/2018 Comp Metabolic Gzv281 ALT(SGPT) 19 U/L 09/12/2018 Comp Metabolic Xew150 BILI T 0.8 mg/dL 09/12/2018 Comp Metabolic Xbz707 ALBUMIN 3.9 g/dL 09/12/2018 Comp Metabolic Tpr571 TPRO 6.5 g/dL 09/12/2018 Comp Metabolic Hem330 GLOB 2.6 g/dL 09/12/2018 Comp Metabolic Gtl285 A/G Ratio 1.5 Ratio 09/12/2018 Comp Metabolic Tcz087 Osmo 268 mOsmo 09/12/2018 Tsh Ord6 TSH (3rd IS) 12.84 uIU/mL 09/12/2018 Influenza A+B Efw788 Influ A+B Negative 09/12/2018 Cbc With Differential [...] 12.3 % 09/12/2018 Cbc With Differential Ord2 [place]% 12.0 % 09/12/2018 Cbc With Differential Ord2 [...] 0.85 K/ul 09/12/2018 Cbc With Differential Ord2 [place] ABS# 0.8 K/ul 09/12/2018 Cbc With Differential Ord2 Eos ABS# 0.1 K/ul 09/12/2018 Cbc With Differential Ord2 Baso ABS# 0.0 K/ul 09/12/2018 Free T4 Aag658 FREE T4 1.10 ng/dL 09/12/2018 Free T4 Fsc591 FREE T4 1.19 ng/dL 05/08/2018 Digoxin Ord9 DIGOXIN 0.6 NG/ML 05/08/2018 Tsh Ord6 TSH (3rd IS) 10.58 uIU/mL 05/08/2018 Tsh Ord6 TSH (3rd IS) 1.07 uIU/mL 01/31/2018 Free T4 Jqm599 FREE T4 1.63 ng/dL 01/31/2018 Digoxin Ord9 DIGOXIN 0.8 NG/ML 01/31/2018 C RAP A SC [id number] Strep A Negative 11/21/2016 Thyroid Antibodies 665258 THYROGLOBULIN ANTIBODY . 11/04/2016 Thyroid Antibodies 528314 THYROGLOBULIN ANTIBODY 919 IU/mL 11/04/2016 Thyroid Antibodies 692703 THYROID PEROXIDASE (TPO) AB . 11/04/2016 Thyroid Antibodies 346823 THYROID PEROXIDASE (TPO) AB 10 IU/mL 11/04/2016 Total T3 Ord42 TT3 0.64 ng/ml 11/03/2016 Free T4 Ztp276 FREE T4 1.39 ng/dL 11/02/2016 Tsh Ord6 [...] Differential Ord2 RDW 13.8 % 05/26/2015 Pt Yma2985 PT 25.0 seconds 05/26/2015 Pt Bqg8354 INR 2.4 05/26/2015 Pt Evt4123 Low Intensity - 1.5-2.0 05/26/2015 Pt Hji7246 Mod intensity - 2.0-3.0 05/26/2015 Pt Opm2043 Hi intensity - 3.0-4.0 05/26/2015 Uric Acid [...] Digoxin Ord9 DIGOXIN 0.6 NG/ML 05/06/2015 Pt Nbj6119 PT 23.3 seconds 05/06/2015 Pt Nhp1303 INR 2.1 05/06/2015 Pt Krl4224 Low Intensity - 1.5-2.0 05/06/2015 Pt Qph9534 Mod intensity - 2.0-3.0 05/06/2015 Pt Eyb8757 Hi intensity - 3.0-4.0 05/06/2015 Free T4 Tdz711 FREE T4 1.65 ng/dL 05/06/2015 Comp Metabolic Znq826 NA 132 mEq/L 05/06/2015 Comp Metabolic Fzh696 K 4.1 mEq/L 05/06/2015 Comp Metabolic Bvj234 CL 98 mEq/L 05/06/2015 Comp Metabolic Vgg412 CO2 27.0 mEq/L 05/06/2015 Comp Metabolic Vro501 ANION GAP 11 05/06/2015 Comp Metabolic Cst777 GLUCOSE 71 mg/dL 05/06/2015 Comp Metabolic Mvr603 Creat 0.7 mg/dL 05/06/2015 Comp Metabolic Gpz907 eGFR 82 ml/min/1.73m2 05/06/2015 Comp Metabolic Etd799 BUN 16 mg/dL 05/06/2015 Comp Metabolic Mpa944 B/C Ratio 22.2 Ratio 05/06/2015 Comp Metabolic Mac457 CALCIUM 9.4 mg/dL 05/06/2015 Comp Metabolic Xep790 ALK PHOS 60 U/L 05/06/2015 Comp Metabolic Jiv073 AST(SGOT) 22 U/L 05/06/2015 Comp Metabolic Aot336 ALT(SGPT) 24 U/L 05/06/2015 Comp Metabolic Kdw728 BILI T 0.8 mg/dL 05/06/2015 Comp Metabolic Rgw779 ALBUMIN 4.3 g/dL 05/06/2015 Comp Metabolic Lyb510 TPRO 7.6 g/dL 05/06/2015 Comp Metabolic Xtm612 GLOB 3.3 g/dL 05/06/2015 Comp Metabolic Srx113 A/G Ratio 1.3 Ratio 05/06/2015 Comp Metabolic Pld268 Osmo 264 mOsmo 05/06/2015 DIGOXIN 2678453 DIGOXIN 1.1 NG/ML 05/15/2013 PT/MC 1922582 PRO TIME 21.7 SEC 05/15/2013 PT/MC 2701166 INR MCMC 2.0 05/15/2013 CHEM 14 6066933 AST 24 U/L 04/23/2013 CHEM 14 7173580 ALT 31 IU/L 04/23/2013 CHEM 14 3035396 BUN 13 MG/DL 04/23/2013 CHEM 14 6354198 ALBUMIN 4.1 GM/DL 04/23/2013 CHEM 14 9786097 CHLORIDE 103 MMOL/L 04/23/2013 CHEM 14 7870475 BILI TOT 0.5 MG/DL 04/23/2013 CHEM 14 8538559 ALK PHOS 44 U/L 04/23/2013 CHEM 14 5014569 SODIUM 137 MMOL/L 04/23/2013 CHEM 14 4530748 CREATININE 0.61 MG/DL 04/23/2013 CHEM 14 2884762 CALCIUM 9.5 MG/DL 04/23/2013 CHEM 14 9629454 POTASSIUM 4.0 MMOL/L 04/23/2013 CHEM 14 2476264 PROT TOT 6.6 GM/DL 04/23/2013 CHEM 14 8481999 GLUCOSE 99 MG/DL 04/23/2013 CHEM 14 1817468 BICARB 27 MMOL/L 04/23/2013 CHEM 14 7802315 ANION GAP 7 MEQ/L 04/23/2013 GFR CALC 5460458 GFR AA >60 ML/MIN 04/23/2013 GFR CALC 8856491 GFR NON-AA >60 ML/MIN 04/23/2013 TSH 4968639 TSH 4.204 uIU/ML 04/23/2013 CBC 4637367 WBC 6.7 10e9/L 04/23/2013 CBC 2197043 RBC 4.19 10e12/L 04/23/2013 CBC 4006351 HGB 13.2 g/dL 04/23/2013 CBC 3685351 HCT DET 39.2 % 04/23/2013 CBC 5521459 MCV 93.6 fL 04/23/2013 CBC 6728598 MCH 31.5 pg 04/23/2013 CBC 6385911 MCHC 33.7 g/dL 04/23/2013 CBC 8635103 PLT 202 10e9/L 04/23/2013 CBC 5211272 MPV 11.4 fL 04/23/2013 CBC 7576708 YANIRA % 70.5 % 04/23/2013 CBC 7977790 LY % 19.6 % 04/23/2013 CBC 7833362 MON % 8.2 % 04/23/2013 CBC 1770483 EOS % 1.6 % 04/23/2013 CBC 7679875 BASO % 0.1 % 04/23/2013 CBC 5655138 RDW 13.7 % 04/23/2013 CBC 6932413 ABS YANIRA 4.72 10e9/L 04/23/2013 CBC 7148782 ABS LYMPH 1.31 10e9/L 04/23/2013 CBC 5367734 ABS MONO 0.55 10e9/L 04/23/2013 CBC 2433029 ABS EOS 0.11 10e9/L 04/23/2013 CBC 1074915 ABS BASO 0.01 10e9/L 04/23/2013 CBC 0955951 RDW-SD 45.7 fL 04/23/2013 PT/MC 3936349 PRO TIME 13.4 SEC 12/17/2012 PT/MC 4025476 INR MCMC 1.0 12/17/2012 PT/MC 4309712 PRO TIME 16.6 SEC 12/14/2012 PT/MC 3299911 INR MCMC 1.4 12/14/2012 PT/MC 4190686 PRO TIME 27.2 SEC 12/11/2012 PT/MC 2379913 INR MCMC 2.6 12/11/2012 DIGOXIN 1503196 DIGOXIN 2.1 NG/ML 03/08/2012 GFR CALC 4071117 GFR AA >60 ML/MIN 03/08/2012 GFR CALC 5893482 GFR NON-AA >60 ML/MIN 03/08/2012 CHEM 14 4381131 AST 16 U/L 03/08/2012 CHEM 14 3386559 ALT 14 IU/L 03/08/2012 CHEM 14 9539860 BUN 10 MG/DL 03/08/2012 CHEM 14 0293436 ALBUMIN 4.2 GM/DL 03/08/2012 CHEM 14 2926106 CHLORIDE 100 MMOL/L 03/08/2012 CHEM 14 0281817 BILI TOT 0.5 MG/DL 03/08/2012 CHEM 14 1018747 ALK PHOS 59 U/L 03/08/2012 CHEM 14 4914809 SODIUM 136 MMOL/L 03/08/2012 CHEM 14 6429745 CREATININE 0.65 MG/DL 03/08/2012 CHEM 14 9674749 CALCIUM 9.4 MG/DL 03/08/2012 CHEM 14 9068074 POTASSIUM 3.9 MMOL/L 03/08/2012 CHEM 14 1279406 PROT TOT 6.7 GM/DL 03/08/2012 CHEM 14 5747547 GLUCOSE 90 MG/DL 03/08/2012 CHEM 14 2201331 BICARB 30 MMOL/L 03/08/2012 CHEM 14 9045325 ANION GAP 6 MEQ/L 03/08/2012 CHEM 14 6643660 AST 16 U/L 11/23/2011 CHEM 14 3630369 ALT 14 IU/L 11/23/2011 CHEM 14 6498894 BUN 11 MG/DL 11/23/2011 CHEM 14 2487244 ALBUMIN 4.1 GM/DL 11/23/2011 CHEM 14 2620921 CHLORIDE 100 MMOL/L 11/23/2011 CHEM 14 9897495 BILI TOT 0.5 MG/DL 11/23/2011 CHEM 14 0634374 ALK PHOS 50 U/L 11/23/2011 CHEM 14 0899972 SODIUM 135 MMOL/L 11/23/2011 CHEM 14 5060182 CREATININE 0.57 MG/DL 11/23/2011 CHEM 14 6802586 CALCIUM 9.1 MG/DL 11/23/2011 CHEM 14 4573263 POTASSIUM 4.5 MMOL/L 11/23/2011 CHEM 14 1495292 PROT TOT 6.5 GM/DL 11/23/2011 CHEM 14 8722849 GLUCOSE 89 MG/DL 11/23/2011 CHEM 14 2850622 BICARB 28 MMOL/L 11/23/2011 CHEM 14 5057419 ANION GAP 7 MEQ/L 11/23/2011 GFR CALC 0291517 GFR AA >60 ML/MIN 11/23/2011 GFR CALC 9113843 GFR NON-AA >60 ML/MIN 11/23/2011 CBC 5510456 WBC 5.1 10e9/L 11/23/2011 CBC 1446741 RBC 4.06 10e12/L 11/23/2011 CBC 9449511 HGB 12.5 g/dL 11/23/2011 CBC 8603155 HCT DET 37.3 % 11/23/2011 CBC 5274343 MCV 91.9 fL 11/23/2011 CBC 2431230 MCH 30.8 pg 11/23/2011 CBC 1844823 MCHC 33.5 g/dL 11/23/2011 CBC 0031055 PLT 222 10e9/L 11/23/2011 CBC 4872337 MPV 10.8 fL 11/23/2011 CBC 3707742 YANIRA % 64.2 % 11/23/2011 CBC [id number] LY % 22.3 % 11/23/2011 CBC [id number] MON % 11.3 % 11/23/2011 CBC [id number] EOS % 1.8 % 11/23/2011 CBC [id number] BASO % 0.4 % 11/23/2011 CBC [id number] RDW 13.6 % 11/23/2011 CBC [id number] ABS YANIRA 3.27 10e9/L 11/23/2011 CBC [id number] ABS LYMPH 1.14 10e9/L 11/23/2011 CBC [id number] ABS MONO 0.58 10e9/L 11/23/2011 CBC [id number] ABS EOS 0.09 10e9/L 11/23/2011 CBC [id number] ABS BASO 0.02 10e9/L 11/23/2011 CBC [id number] RDW-SD 44.5 fL 11/23/2011 UA 83456 Specific Gaffney 1.005 03/04/2011 UA 55297 PH 6 03/04/2011 UA 59284 GLUCOSE N 03/04/2011 UA 52484 Protein N 03/04/2011 UA 98954 Blood ++ 03/04/2011 UA 36852 Bilirubin N 03/04/2011 UA 26035 Ketones N 03/04/2011 UA 06067 Urobilinogen N 03/04/2011 UA 73059 Nitrite N 03/04/2011 UA 77964 Leukocytes N 03/04/2011 URINALYSIS NONAUTO W/O SCOPE 65824 Specific [place]ney 1.010 DateTime(Free Text in Aprima) URINALYSIS NONAUTO W/O SCOPE 97242 PH 6.5 DateTime(Free Text in Aprima) URINALYSIS NONAUTO W/O SCOPE 40453 GLUCOSE neg DateTime(Free Text in Aprima) URINALYSIS NONAUTO W/O SCOPE 80838 Protein neg DateTime(Free Text in Aprima) URINALYSIS NONAUTO W/O SCOPE 57295 Blood 3+ DateTime(Free Text in Aprima) URINALYSIS NONAUTO W/O SCOPE 66536 Bilirubin neg DateTime(Free Text in Apr[employer]) URINALYSIS NONAUTO W/O SCOPE 27822 Ketones neg DateTime(Free Text in Apr[employer]) URINALYSIS NONAUTO W/O SCOPE 82106 Urobilinogen neg DateTime(Free Text in Apr[employer]) URINALYSIS NONAUTO W/O SCOPE 19448 Nitrite neg DateTime(Free Text in Aprima) URINALYSIS NONAUTO W/O SCOPE 01926 Leukocytes neg DateTime(Free Text in Aprima) URINALYSIS NONAUTO W/O SCOPE 31785 Specific [place]ney 1.010 DateTime(Free Text in Aprima) URINALYSIS NONAUTO W/O SCOPE 39441 PH 5 DateTime(Free Text in Aprima) URINALYSIS NONAUTO W/O SCOPE 12897 GLUCOSE neg DateTime(Free Text in Aprima) URINALYSIS NONAUTO W/O SCOPE 62445 Protein neg DateTime(Free Text in Aprima) URINALYSIS NONAUTO W/O SCOPE 55379 Blood 3+ DateTime(Free Text in Aprima) URINALYSIS NONAUTO W/O SCOPE 90557 Bilirubin neg DateTime(Free Text in Aprima) URINALYSIS NONAUTO W/O SCOPE 32384 Ketones neg DateTime(Free Text in Apr[employer]) URINALYSIS NONAUTO W/O SCOPE 45000 Urobilinogen neg DateTime(Free Text in Aprima) URINALYSIS NONAUTO W/O SCOPE 82966 Nitrite neg DateTime(Free Text in Aprima) URINALYSIS NONAUTO W/O SCOPE 87478 Leukocytes neg DateTime(Free Text in Aprima) URINALYSIS NONAUTO W/O SCOPE 73458 Specific [place] 1.005 DateTime(Free Text in Aprima) URINALYSIS NONAUTO W/O SCOPE 67391 PH 8.5 DateTime(Free Text in Aprima) URINALYSIS NONAUTO W/O SCOPE 59542 GLUCOSE neg DateTime(Free Text in Aprima) URINALYSIS NONAUTO W/O SCOPE 84834 Protein neg DateTime(Free Text in Aprima) URINALYSIS NONAUTO W/O SCOPE 19763 Blood 1+ DateTime(Free Text in Aprima) URINALYSIS NONAUTO W/O SCOPE 69388 Bilirubin neg DateTime(Free Text in Aprima) URINALYSIS NONAUTO W/O SCOPE 08712 Ketones neg DateTime(Free Text in Aprima) URINALYSIS NONAUTO W/O SCOPE 40819 Urobilinogen neg DateTime(Free Text in Aprima) URINALYSIS NONAUTO W/O SCOPE 17060 Nitrite neg DateTime(Free Text in Aprima) URINALYSIS NONAUTO W/O SCOPE 40518 Leukocytes neg DateTime(Free Text in Aprima) URINALYSIS NONAUTO W/O SCOPE 23015 Specific [place] 1.005 DateTime(Free Text in Aprima) URINALYSIS NONAUTO W/O SCOPE 14170 PH 7 DateTime(Free Text in Aprima) URINALYSIS NONAUTO W/O SCOPE 76090 GLUCOSE neg DateTime(Free Text in Aprima) URINALYSIS NONAUTO W/O SCOPE 91600 Protein neg DateTime(Free Text in Aprima) URINALYSIS NONAUTO W/O SCOPE 66260 Blood large DateTime(Free Text in Aprima) URINALYSIS NONAUTO W/O SCOPE 26175 Bilirubin neg DateTime(Free Text in Aprima) URINALYSIS NONAUTO W/O SCOPE 23518 Ketones neg DateTime(Free Text in Aprima) URINALYSIS NONAUTO W/O SCOPE 49865 Urobilinogen 0.2 DateTime(Free Text in Aprima) URINALYSIS NONAUTO W/O SCOPE 18537 Nitrite neg DateTime(Free Text in Aprima) URINALYSIS NONAUTO W/O SCOPE 06719 Leukocytes neg DateTime(Free Text in Aprima) URINALYSIS NONAUTO W/O SCOPE 67157 Specific [place] 1.005 DateTime(Free Text in Aprima) URINALYSIS NONAUTO W/O SCOPE 15444 PH 7.5 DateTime(Free Text in Aprima) URINALYSIS NONAUTO W/O SCOPE 38555 GLUCOSE DateTime(Free Text in Aprima) URINALYSIS NONAUTO W/O SCOPE 21113 Protein trace DateTime(Free Text in Aprima) URINALYSIS NONAUTO W/O SCOPE 11396 Blood 4+ DateTime(Free Text in Aprima) URINALYSIS NONAUTO W/O SCOPE 02545 Bilirubin DateTime(Free Text in Aprima) URINALYSIS NONAUTO W/O SCOPE 40964 Ketones DateTime(Free Text in Aprima) URINALYSIS NONAUTO W/O SCOPE 52447 Urobilinogen DateTime(Free Text in Aprima) URINALYSIS NONAUTO W/O SCOPE 93141 Nitrite DateTime(Free Text in Aprima) URINALYSIS NONAUTO W/O SCOPE 26924 Leukocytes trace DateTime(Free Text in ) Review of Systems System Result Effective Dates Constitutional recent illness 01/03/2019 Constitutional anorexia 01/03/2019 Constitutional No night sweats 01/03/2019 Constitutional No chills 01/03/2019 Constitutional No diaphoresis 01/03/2019 Constitutional fatigue 01/03/2019 Constitutional No fever 01/03/2019 Constitutional No insomnia 01/03/2019 Constitutional No malaise 01/03/2019 Constitutional No weight loss 01/03/2019 Constitutional No weight gain 01/03/2019 Eyes No eye erythema 01/03/2019 Ears/Nose/Throat/Neck No nasal discharge 01/03/2019 Ears/Nose/Throat/Neck No dizziness 01/03/2019 Cardiovascular No chest pain/pressure 01/03/2019 Cardiovascular dyspnea 01/03/2019 Cardiovascular edema 01/03/2019 Respiratory No productive sputum 01/03/2019 Respiratory No chest congestion 01/03/2019 Respiratory No cough 01/03/2019 Gastrointestinal No abdominal pain 01/03/2019 Gastrointestinal constipation 01/03/2019 Gastrointestinal diarrhea 01/03/2019 Genitourinary/Nephrology No dysuria 01/03/2019 Musculoskeletal joint complaint 01/03/2019 Dermatologic No rash 01/03/2019 Neurologic No alteration of consciousness 01/03/2019 Neurologic memory loss 01/03/2019 Psychiatric anxiety 01/03/2019 Endocrine No dry or coarse skin 01/03/2019 Ears/Nose/Throat/Neck No dizziness 12/10/2018 Ears/Nose/Throat/Neck No headache 12/10/2018 Ears/Nose/Throat/Neck oral pain 12/10/2018 Constitutional recent illness 12/10/2018 Constitutional anorexia 12/10/2018 Constitutional No night sweats 12/10/2018 Constitutional chills 12/10/2018 Constitutional No diaphoresis 12/10/2018 Constitutional fatigue 12/10/2018 Constitutional No fever 12/10/2018 Constitutional No insomnia 12/10/2018 Constitutional malaise 12/10/2018 Constitutional weight loss 12/10/2018 Constitutional No weight gain 12/10/2018 Eyes No eye discharge 12/10/2018 Cardiovascular No chest pain/pressure 12/10/2018 Cardiovascular dyspnea 12/10/2018 Respiratory No productive sputum 12/10/2018 Respiratory cough 12/10/2018 Gastrointestinal No abdominal pain 12/10/2018 Gastrointestinal No constipation 12/10/2018 Gastrointestinal No diarrhea 12/10/2018 Gastrointestinal No vomiting 12/10/2018 Gastrointestinal No nausea 12/10/2018 Genitourinary/Nephrology No dysuria 12/10/2018 Musculoskeletal No joint complaint 12/10/2018 Dermatologic No rash 12/10/2018 Neurologic No alteration of consciousness 12/10/2018 Psychiatric depression 12/10/2018 Neurologic weakness 12/10/2018 Endocrine No dry or coarse skin 12/10/2018 Constitutional fatigue 12/06/2018 Constitutional recent illness 12/06/2018 [...] General Constitutional general appearance Overall: well nourished 01/03/2019 None Full Exam - General Constitutional general appearance Overall: well developed 01/03/2019 None Full Exam - General Constitutional general appearance Overall: in no acute distress 01/03/2019 None Full Exam - Cardiology Ears/Nose/Throat oral mucosa Oral mucosa: dry 01/03/2019 None Full Exam - General Eyes pupils and irises Overall: pupils equal, round, reactive to light and accomodation 01/03/2019 None Full Exam - General Ears/Nose/Throat otoscopic exam Overall: external auditory canals clear 01/03/2019 None Full Exam - General Ears/Nose/Throat otoscopic exam Overall: tympanic membranes clear 01/03/2019 None Full Exam - General Ears/Nose/Throat oral cavity/pharynx/larynx Overall: oral mucosa clear 01/03/2019 None Full Exam - General Ears/Nose/Throat oral cavity/pharynx/larynx Overall: oropharyngeal mucosa clear 01/03/2019 None Full Exam - General Respiratory auscultation Overall: breath sounds clear bilaterally 01/03/2019 None Full Exam - General Respiratory respiratory effort/rhythm Overall: no retractions 01/03/2019 None Full Exam - General Respiratory respiratory effort/rhythm Overall: normal rate 01/03/2019 None Full Exam - General Cardiovascular auscultation of heart Rate: regular rate 01/03/2019 None Full Exam - General Cardiovascular auscultation of heart Rhythm: irregularly irregular rhythm 01/03/2019 None Full Exam - General Cardiovascular extremities Overall: no clubbing 01/03/2019 None Full Exam - General Cardiovascular extremities Edema present: pitting 01/03/2019 None Full Exam - General Abdomen abdominal exam Overall: normal bowel sounds 01/03/2019 None Full Exam - General Abdomen abdominal exam Left upper quadrant: non-tender to palpation 01/03/2019 None Full Exam - General Abdomen abdominal exam Left lower quadrant: non-tender to palpation 01/03/2019 None Full Exam - Cardiology Lymphatic neck nodes Overall: anterior cervical chain benign 01/03/2019 None Full Exam - Cardiology Lymphatic neck nodes Overall: posterior cervical chain benign 01/03/2019 None Full Exam - Cardiology Integument inspection/palpation Overall: no rash, lesions 01/03/2019 None Full Exam - Cardiology Neurologic gait Conventional walking: unsteady 01/03/2019 None Full Exam - General Neurologic cranial nerves Overall: cranial nerves 1-12 intact 01/03/2019 None Full Exam - General Psychiatric orientation/consciousness Overall: oriented to person, place and time 01/03/2019 None Full Exam - General Psychiatric mood and affect Overall: normal mood and affect 01/03/2019 None Full Exam - General Psychiatric appearance Overall: well-groomed, good eye contact 01/03/2019 None Full Exam - Cardiology Cardiovascular extremities Edema present: severity 1+ - 4+: 2+ 01/03/2019 None Full Exam - General Constitutional general appearance Overall: well nourished 12/10/2018 None Full Exam - General Constitutional general appearance Overall: well developed 12/10/2018 None Full Exam - General Constitutional general appearance Overall: in no acute distress 12/10/2018 None Full Exam - General Eyes pupils and irises Overall: pupils equal, round, reactive to light and accomodation 12/10/2018 None Full Exam - General Ears/Nose/Throat otoscopic exam Overall: external auditory canals clear 12/10/2018 None Full Exam - General Ears/Nose/Throat otoscopic exam Overall: tympanic membranes clear 12/10/2018 None Full Exam - General Ears/Nose/Throat oral cavity/pharynx/larynx Overall: oral mucosa clear 12/10/2018 None Full Exam - General Ears/Nose/Throat oral cavity/pharynx/larynx Overall: oropharyngeal mucosa clear 12/10/2018 None Full Exam - General Respiratory auscultation Overall: breath sounds clear bilaterally 12/10/2018 None Full Exam - General Respiratory respiratory effort/rhythm Overall: no retractions 12/10/2018 None Full Exam - General Respiratory respiratory effort/rhythm Overall: normal rate 12/10/2018 None Full Exam - General Cardiovascular auscultation of heart Rate: regular rate 12/10/2018 None Full Exam - General Cardiovascular auscultation of heart Rhythm: irregularly irregular rhythm 12/10/2018 None Full Exam - General Cardiovascular extremities Overall: no clubbing 12/10/2018 None Full Exam - General Cardiovascular extremities Edema present: pitting 12/10/2018 None Full Exam - General Abdomen abdominal exam Overall: normal bowel sounds 12/10/2018 None Full Exam - General Abdomen abdominal exam Left upper quadrant: non-tender to palpation 12/10/2018 None Full Exam - General Abdomen abdominal exam Left lower quadrant: non-tender to palpation 12/10/2018 None Full Exam - General Neurologic cranial nerves Overall: cranial nerves 1-12 intact 12/10/2018 None Full Exam - General Psychiatric orientation/consciousness Overall: oriented to person, place and time 12/10/2018 None Full Exam - General Psychiatric mood and affect Overall: normal mood and affect 12/10/2018 None Full Exam - General Psychiatric appearance Overall: well-groomed, good eye contact 12/10/2018 None Full Exam - Cardiology Integument inspection/palpation Overall: no rash, lesions 12/10/2018 None Full Exam - Cardiology Lymphatic neck nodes Overall: posterior cervical chain benign 12/10/2018 None Full Exam - Cardiology Lymphatic neck nodes Overall: anterior cervical chain benign 12/10/2018 None Full Exam - Cardiology Neurologic gait Conventional walking: unsteady 12/10/2018 None Full Exam - Cardiology Ears/Nose/Throat oral mucosa Oral mucosa: dry 12/10/2018 None Full Exam - Cardiology Ears/Nose/Throat oral mucosa Oral mucosa: thrush 12/10/2018 None Full Exam - General Constitutional general [...] FLU VACC PRSV FREE INC ANTIG CPT-4: 36649 03/27/2017 PPPS, SUBSEQ VISIT CPT- 4: G0439 01/23/2017 URINALYSIS NONAUTO W/O SCOPE CPT-4: 14380 05/17/2016 ADMIN INFLUENZA VIRUS VAC CPT-4: G0008 03/24/2016 FLU VACC PRSV FREE INC ANTIG CPT-4: 11378 03/24/2016 ADMIN PNEUMOCOCCAL VACCINE SNOMED CT: 78071065 CPT-4: G0009 05/13/2015 PNEUMOCOCCAL VACC [address]: 52808627 CPT-4: 33973 05/13/2015 Pneumococcal Polysaccharide Vaccine, 23-Valent, Ad Assigned to/Mela Bledsoe CPT-4: 74844Gssjuoc 07/11/2014 ADMIN PNEUMOCOCCAL VACCINE SNOMED CT: 38330477 CPT-4: G0009 07/11/2014 URINALYSIS NONAUTO W/O SCOPE CPT-4: 78389 05/14/2014 URINALYSIS NONAUTO W/O SCOPE CPT-4: 94837 05/06/2014 URINALYSIS NONAUTO W/O SCOPE CPT-4: 02847 04/29/2014 ADMIN INFLUENZA VIRUS VAC CPT-4: G0008 03/20/2014 FLU VAC NO PRSV 4 SCOTT 3 YRS+ Assigned to/Mela Bledsoe CPT-4: 34545Otobbmc 03/20/2014 URINALYSIS NONAUTO W/O SCOPE CPT-4: 02715 07/29/2013 URINALYSIS NONAUTO W/O SCOPE CPT-4: 16086 07/01/2013 URINALYSIS NONAUTO W/O SCOPE CPT-4: 35072 06/20/2013 ROUTINE VENIPUNCTURE CPT- 4: 77677 05/15/2013 ROUTINE VENIPUNCTURE CPT- 4: 93210 04/23/2013 ADMIN INFLUENZA VIRUS VAC CPT-4: G0008 04/23/2013 FLULAVAL VACC, 3 YRS & >, IM CPT-4: Q2036 04/23/2013 ROUTINE VENIPUNCTURE CPT- 4: 57259 12/17/2012 ROUTINE VENIPUNCTURE CPT- 4: 27334 12/14/2012 ROUTINE VENIPUNCTURE CPT- 4: 81518 12/11/2012 PRESCRIP TRANSMIT VIA ERX SY CPT-4: G8553 12/11/2012 PRESCRIP TRANSMIT VIA ERX SY CPT-4: G8553 10/30/2012 URINALYSIS NONAUTO W/O SCOPE CPT-4: 57886 09/13/2012 ADMIN INFLUENZA VIRUS VAC CPT-4: G0008 04/18/2012 FLULAVAL VACC, 3 YRS & >, IM CPT-4: Q2036 04/18/2012 URINALYSIS NONAUTO W/O SCOPE CPT-4: 15815 03/13/2012 ROUTINE VENIPUNCTURE CPT- 4: 02477 03/08/2012 URINALYSIS NONAUTO W/O SCOPE CPT-4: 50164 02/13/2012 PRESCRIP TRANSMIT VIA ERX SY CPT-4: G8553 02/13/2012 ROCEPHIN, PER 250 MG CPT- 4: J0696 11/23/2011 ROUTINE VENIPUNCTURE CPT- 4: 46577 11/23/2011 URINALYSIS NONAUTO W/O SCOPE CPT-4: 28790 11/23/2011 PRESCRIP TRANSMIT VIA ERX SY CPT-4: G8553 11/23/2011 REMOVE IMPACTED EAR WAX UNI CPT-4: 64012 10/17/2011 PRESCRIP TRANSMIT VIA ERX SY CPT-4: G8553 10/03/2011 PRESCRIP TRANSMIT VIA ERX SY CPT-4: G8553 08/08/2011 URINALYSIS NONAUTO W/O SCOPE CPT-4: 49771 03/15/2011 URINALYSIS NONAUTO W/O SCOPE CPT-4: 82498 03/04/2011 THER/PROPH/DIAG INJ SC/IM CPT-4: 06154 03/04/2011 ROCEPHIN, PER 250 MG CPT- 4: J0696 03/04/2011 Vital Signs Date Vital 01/03/2019 Blood Pressure 1: 140/68 Code: 8480-6 Heart Rate 1: 80 bpm Height: 5' Weight: 12/10/2018 Blood Pressure 1: 120/56 Code: 8480-6 BMI: 19.9 Code: 13689-2 Heart Rate 1: 103 bpm Height: 5' SpO2: 93% Weight: 102 lbs 12/06/2018 Blood Pressure 1: 118/66 Code: 8480-6 BMI: 20.1 Code: 19617-6 Heart Rate 1: 134 bpm Height: 5' SpO2: 98% Weight: 103 lbs 11/30/2018 Blood Pressure 1: 122/64 Code: 8480-6 Height: Weight: 10/31/2018 Blood Pressure 1: 122/66 Code: 8480-6 BMI: 20.5 Code: 04492-0 Heart Rate 1: 83 bpm Height: 5' SpO2: 99% Weight: 105 lbs 10/09/2018 Blood Pressure 1: 126/60 Code: 8480-6 BMI: 19.9 Code: 04620-5 Heart Rate 1: 66 bpm Height: 5' SpO2: 96% Weight: 102 lbs 09/12/2018 Blood Pressure 1: 156/72 Code: 8480-6 BMI: 19.9 Code: 97583-2 Heart Rate 1: 68 bpm Height: 5' Temperature: 36.6 (C) / 97.8 (F) Weight: 102 lbs 08/14/2018 Blood Pressure 1: 136/68 Code: 8480-6 BMI: 21.1 Code: 10633-6 Heart Rate 1: 92 bpm Height: 5' Weight: 108 lbs 07/26/2018 Blood Pressure 1: 128/76 Code: 8480-6 BMI: 21.1 Code: 68226-7 Heart Rate 1: 88 bpm Height: 5' Weight: 108 lbs 06/04/2018 Blood Pressure 1: 124/72 Code: 8480-6 BMI: 21.3 Code: 04880-0 Heart Rate 1: 98 bpm Height: 5' Weight: 109 lbs 01/31/2018 Blood Pressure 1: 116/68 Code: 8480-6 BMI: 21.1 Code: 98596-4 Heart Rate 1: 89 bpm Height: 5' SpO2: 98% Weight: 108 lbs 01/17/2018 Blood Pressure 1: 134/74 Code: 8480-6 BMI: 21.3 Code: 62802-0 Heart Rate 1: 74 bpm Height: 5' SpO2: 96% Waist Measure (cm): 71 cm Weight: 109 lbs 12/14/2017 Blood Pressure 1: 150/78 Code: 8480-6 BMI: 21.5 Code: 71476-2 Heart Rate 1: 77 bpm Height: 5' SpO2: 98% Temperature: 36.7 (C) / 98.1 (F) Weight: 110 lbs 12/07/2017 Blood Pressure 1: 134/70 Code: 8480-6 Heart Rate 1: 76 bpm Height: SpO2: 98% Temperature: 36.8 (C) / 98.2 (F) Weight: 11/14/2017 Blood Pressure 1: 152/84 Code: 8480-6 BMI: 21.9 Code: 99663-1 Heart Rate 1: 95 bpm Height: 5' SpO2: 93% Weight: 112 lbs 03/27/2017 Blood Pressure 1: 122/70 Code: 8480-6 BMI: 21.3 Code: 84335-8 Heart Rate 1: 75 bpm Height: 5' Weight: 109 lbs 01/23/2017 BMI: 21.5 Code: 19881-0 Height: 5' Weight: 110 lbs 01/19/2017 Blood Pressure 1: 112/60 Code: 8480-6 BMI: 21.5 Code: 74421-0 Heart Rate 1: 54 bpm Height: 5' SpO2: 97% Weight: 110 lbs 11/29/2016 Blood Pressure 1: 126/68 Code: 8480-6 Height: 5' Weight: 11/23/2016 Blood Pressure 1: 130/72 Code: 8480-6 BMI: 21.9 Code: 77329-0 Heart Rate 1: 48 bpm Height: 5' SpO2: 97% Temperature: 36.7 (C) / 98.0 (F) Weight: 112 lbs 11/21/2016 Blood Pressure 1: 134/76 Code: 8480-6 BMI: 21.9 Code: 05519-6 Heart Rate 1: 41 bpm Height: 5' SpO2: 94% Temperature: 36.9 (C) / 98.4 (F) Weight: 112 lbs 11/08/2016 Blood Pressure 1: 126/74 Code: 8480-6 Heart Rate 1: 82 bpm Height: 5' SpO2: 94% Weight: 11/02/2016 Blood Pressure 1: 112/66 Code: 8480-6 Heart Rate 1: 72 bpm Height: 5' SpO2: 95% Weight: 10/27/2016 Blood Pressure 1: 130/64 Code: 8480-6 BMI: 21.7 Code: 99061-7 Heart Rate 1: 81 bpm Height: 5' SpO2: 96% Weight: 111 lbs 08/31/2016 Blood Pressure 1: 132/72 Code: 8480-6 BMI: 22.5 Code: 50812-5 Heart Rate 1: 66 bpm Height: 5' Weight: 115 lbs 07/27/2016 Blood Pressure 1: 166/74 Code: 8480-6 BMI: 23.2 Code: 72336-1 Heart Rate 1: 48 bpm Height: 5' SpO2: 90% Temperature: 36.8 (C) / 98.2 (F) Weight: 119 lbs 06/23/2016 Blood Pressure 1: 128/70 Code: 8480-6 BMI: 22.3 Code: 47054-8 Heart Rate 1: 75 bpm Height: 5' SpO2: 97% Weight: 114 lbs 06/09/2016 BMI: 22.7 Code: 73902-5 Heart Rate 1: 73 bpm Height: 5' SpO2: 97% Weight: 116 lbs 05/25/2016 Blood Pressure 1: 138/62 Code: 8480-6 BMI: 22.8 Code: 24814-7 Heart Rate 1: 76 bpm Height: 5' Weight: 117 lbs 05/17/2016 Blood Pressure 1: 116/70 Code: 8480-6 BMI: 22.8 Code: 72648-5 Heart Rate 1: 74 bpm Height: 5' SpO2: 94% Weight: 117 lbs 03/24/2016 Blood Pressure 1: 154/78 Code: 8480-6 BMI: 22.5 Code: 06629-2 Heart Rate 1: 78 bpm Height: 5' SpO2: 97% Weight: 115 lbs 02/02/2016 Blood Pressure 1: 132/70 Code: 8480-6 BMI: 22.3 Code: 41857-5 Heart Rate 1: 74 bpm Height: 5' SpO2: 94% Weight: 114 lbs 2016 Blood Pressure 1: 120/62 Code: 8480-6 BMI: 22.0 Code: 13572-7 Heart Rate 1: 68 bpm Height: 5' Weight: 112 lbs 8 oz 12/21/2015 Blood Pressure 1: 122/82 Code: 8480-6 BMI: 21.9 Code: 35626-3 Heart Rate 1: 83 bpm Height: 5' SpO2: 93% Temperature: 37.1 (C) / 98.7 (F) Weight: 112 lbs 11/03/2015 Blood Pressure 1: 122/72 Code: 8480-6 BMI: 22.4 Code: 58022-0 Heart Rate 1: 62 bpm Height: 5' Weight: 114 lbs 8 oz 10/19/2015 Blood Pressure 1: 138/62 Code: 8480-6 BMI: 21.1 Code: 06157-5 Heart Rate 1: 79 bpm Height: 5' Weight: 108 lbs 10/13/2015 Blood Pressure 1: 120/62 Code: 8480-6 BMI: 21.0 Code: 06316-9 Heart Rate 1: 76 bpm Height: 5' SpO2: 98% Weight: 108 lbs 09/29/2015 Blood Pressure 1: 130/70 Code: 8480-6 BMI: 20.2 Code: 49707-0 Heart Rate 1: 72 bpm Height: 5' Weight: 104 lbs 09/15/2015 Blood Pressure 1: 128/78 Code: 8480-6 BMI: 19.9 Code: 43249-9 Heart Rate 1: 72 bpm Height: 5' Weight: 102 lbs 8 oz 09/01/2015 Blood Pressure 1: 128/68 Code: 8480-6 BMI: 19.8 Code: 86014-3 Height: 5' Weight: 102 lbs 05/26/2015 Blood Pressure 1: 140/68 Code: 8480-6 BMI: 19.0 Code: 99596-2 Heart Rate 1: 70 bpm Height: 5' Weight: 98 lbs 05/21/2015 Blood Pressure 1: 140/78 Code: 8480-6 BMI: 19.2 Code: 59995-4 Heart Rate 1: 85 bpm Height: 5' SpO2: 95% Weight: 99 lbs 05/07/2015 Blood Pressure 1: 140/82 Code: 8480-6 BMI: 19.0 Code: 68029-4 Heart Rate 1: 76 bpm Height: 5' Weight: 98 lbs 03/23/2015 Blood Pressure 1: 142/60 Code: 8480-6 BMI: 18.6 Code: 82466-1 Heart Rate 1: 52 bpm Height: 5' Weight: 96 lbs 03/09/2015 Blood Pressure 1: 138/74 Code: 8480-6 BMI: 18.8 Code: 82955-9 Heart Rate 1: 60 bpm Height: 5' Weight: 97 lbs 10/30/2014 Blood Pressure 1: 112/82 Code: 8480-6 BMI: 19.0 Code: 79156-2 Heart Rate 1: 64 bpm Height: 5' Weight: 98 lbs 07/11/2014 Blood Pressure 1: 146/70 Code: 8480-6 BMI: 18.8 Code: 40784-1 Heart Rate 1: 68 bpm Height: 5' Weight: 97 lbs 05/20/2014 Blood Pressure 1: 142/76 Code: 8480-6 BMI: 18.6 Code: 84873-8 Heart Rate 1: 78 bpm Height: 5' Weight: 96 lbs 04/29/2014 Blood Pressure 1: 138/62 Code: 8480-6 BMI: 18.3 Code: 44367-9 Heart Rate 1: 80 bpm Height: 5' Weight: 94 lbs 8 oz 03/20/2014 Blood Pressure 1: 142/68 Code: 8480-6 BMI: 18.6 Code: 68794-0 Heart Rate 1: 96 bpm Height: 5' Weight: 96 lbs 03/05/2014 Blood Pressure 1: 122/72 Code: 8480-6 BMI: 18.8 Code: 93797-4 Heart Rate 1: 82 bpm Height: 5' SpO2: 97% Weight: 97 lbs 01/29/2014 Blood Pressure 1: 124/78 Code: 8480-6 BMI: 18.8 Code: 80345-5 Heart Rate 1: 60 bpm Height: 5' Weight: 97 lbs 01/14/2014 Blood Pressure 1: 120/58 Code: 8480-6 BMI: 19.2 Code: 22044-1 Heart Rate 1: 56 bpm Height: 5' Temperature: 36.9 (C) / 98.4 (F) Weight: 99 lbs 12/25/2013 Blood Pressure 1: 118/78 Code: 8480-6 BMI: 19.2 Code: 77879-5 Heart Rate 1: 68 bpm Height: 5' Weight: 99 lbs 11/27/2013 Blood Pressure 1: 102/68 Code: 8480-6 BMI: 19.4 Code: 88790-3 Heart Rate 1: 56 bpm Height: 5' Weight: 100 lbs 09/12/2013 Blood Pressure 1: 142/62 Code: 8480-6 BMI: 19.7 Code: 16715-6 Heart Rate 1: 72 bpm Height: 5'1" Weight: 104 lbs 08/15/2013 Blood Pressure 1: 152/92 Code: 8480-6 Heart Rate 1: 96 bpm Weight: 102 lbs 08/01/2013 Blood Pressure 1: 122/68 Code: 8480-6 BMI: 19.1 Code: 92808-3 Heart Rate 1: 68 bpm Height: 5'1" Weight: 101 lbs 07/01/2013 Blood Pressure 1: 130/72 Code: 8480-6 BMI: 19.5 Code: 59528-2 Heart Rate 1: 80 bpm Height: 5'1" Temperature: 36.1 (C) / 97.0 (F) Weight: 103 lbs 05/29/2013 Blood Pressure 1: 126/72 Code: 8480-6 BMI: 19.3 Code: 99276-7 Heart Rate 1: 80 bpm Height: 5'1" Weight: 102 lbs 05/15/2013 Blood Pressure 1: 156/74 Code: 8480-6 BMI: 19.3 Code: 95952-7 Heart Rate 1: 88 bpm Height: 5'1" Weight: 102 lbs 04/23/2013 Blood Pressure 1: 140/82 Code: 8480-6 BMI: 19.3 Code: 67088-5 Heart Rate 1: 72 bpm Height: 5'1" Weight: 102 lbs 03/21/2013 Blood Pressure 1: 142/74 Code: 8480-6 Heart Rate 1: 92 bpm Weight: 103 lbs 01/16/2013 Blood Pressure 1: 120/56 Code: 8480-6 BMI: 20.0 Code: 28128-8 Heart Rate 1: 72 bpm Height: 5'1" Weight: 106 lbs 12/19/2012 Blood Pressure 1: 118/66 Code: 8480-6 Heart Rate 1: 84 bpm Weight: 12/10/2012 Blood Pressure 1: 132/62 Code: 8480-6 Heart Rate 1: 64 bpm Weight: 103 lbs 10/30/2012 Blood Pressure 1: 122/66 Code: 8480-6 BMI: 19.9 Code: 91040-1 Heart Rate 1: 61 bpm Height: 5'1" [...] 1: 118/72 Code: 8480-6 BMI: 21.0 Code: 97496-0 Heart Rate 1: 66 bpm Height: 5'1" Respiratory Rate: 16 bpm Weight: 111 lbs 2012 Blood Pressure 1: 122/62 Code: 8480-6 Heart Rate 1: 68 bpm Weight: 110 lbs 12/01/2011 Blood Pressure 1: 150/60 Code: 8480-6 BMI: 20.8 Code: 52160-9 Heart Rate 1: 60 bpm Height: 5'1" Respiratory Rate: 16 bpm Weight: 110 lbs 11/23/2011 Blood Pressure 1: 170/68 Code: 8480-6 BMI: 21.1 Code: 51372-9 Heart Rate 1: 64 bpm Height: 5'1" Temperature: 36.3 (C) / 97.3 (F) Weight: 111 lbs 8 oz 10/17/2011 Blood Pressure 1: 148/62 Code: 8480-6 Heart Rate 1: 74 bpm 10/03/2011 Blood Pressure 1: 102/48 Code: 8480-6 BMI: 21.4 Code: 73887-2 Heart Rate 1: 76 bpm Height: 5'1" Respiratory Rate: 16 bpm Weight: 113 lbs 08/08/2011 Blood Pressure 1: 128/60 Code: 8480-6 Heart Rate 1: 80 bpm Respiratory Rate: 16 bpm Weight: 113 lbs 05/09/2011 Blood Pressure 1: 130/62 Code: 8480-6 BMI: 20.7 Code: 62934-3 Heart Rate 1: 64 bpm Height: 5'1" Respiratory Rate: 16 bpm Weight: 109 lbs 8 oz 03/29/2011 Blood Pressure 1: 120/62 Code: 8480-6 BMI: 20.2 Code: 02993-5 Heart Rate 1: 66 bpm Height: 5'1" Respiratory Rate: 12 bpm Weight: 107 lbs 03/15/2011 Blood Pressure 1: 120/64 Code: 8480-6 BMI: 19.8 Code: 02217-5 Heart Rate 1: 76 bpm Height: 5'1" Respiratory Rate: 16 bpm Weight: 105 lbs Functional Status No Functional Status data History of Present Illness Symptom Name Status Result Effective Date Notes _ cardiac disease 01/03/2019 None _ pneumonia 01/03/2019 None Quality acute illness 01/03/2019 None Quality chronic illness 01/03/2019 None Onset and Resolution ongoing 01/03/2019 None Onset and Resolution improved during the day 01/03/2019 None Severity mild 01/03/2019 None Significant Medical Conditions acute illness 01/03/2019 None Alleviating Factors medication 01/03/2019 None Pertinent Findings Denies pain 01/03/2019 None Pertinent Findings Denies fever 01/03/2019 None Onset and Resolution ongoing 01/03/2019 None Onset of Symptom _ weeks ago 01/03/2019 None Limitation on Activities does not limit activities 01/03/2019 None Frequency of Episodes increasing 01/03/2019 None Significant Past Medical History cardiac disease 01/03/2019 None Significant Past Medical History renal disease 01/03/2019 None Alleviating Factors medication 01/03/2019 None Exacerbating Factors medication 01/03/2019 None Pertinent Findings Denies limb redness 01/03/2019 None Pertinent Findings limb pain / tenderness 01/03/2019 None Pertinent Findings dyspnea on exertion 01/03/2019 None Location on both legs 01/03/2019 None Quality chronic 01/03/2019 None Location in the throat 12/10/2018 None Quality dry 12/10/2018 None Onset of Symptom _ weeks ago 12/10/2018 None Pertinent Findings Denies chest discomfort 12/10/2018 None Pertinent Findings dyspnea 12/10/2018 with talking Quality intermittent 12/10/2018 None Onset and Resolution ongoing 12/10/2018 None Onset of Symptom Denies 2-3 days ago 12/10/2018 None Pertinent Findings Denies muscle tenderness 12/10/2018 None Quality acute 12/06/2018 None Quality improving 12/06/2018 [...] contacts 03/20/2014 sat next to neighbor in [place] who had tonsillitis sore throat Pertinent Findings [...] data Encounters Encounter Performer Location Codes Date ( 18224 EST. PATIENT, LEVEL IV Diagnosis: Localized edema[ICD10: R60.0] Diagnosis: Paroxysmal atrial fibrillation[ICD10: I48.0] Diagnosis: Hypo-osmolality and hyponatremia[ICD10: E87.1] Laura Bahena MD, [facility] CPT-4: 22543 01/03/2019 ([id number]) Miscellaneous no charge Diagnosis: Hypo-osmolality and hyponatremia[ICD10: E87.1] Diagnosis: Paroxysmal atrial fibrillation[ICD10: I48.0] Diagnosis: Muscle weakness (generalized)[ICD10: M62.81] Diagnosis: Major depressive disorder, recurrent, mild[ICD10: F33.0] Karma Bahena MD, [facility] CPT-4: 27484 12/10/2018 ([id number]) 01054 EST. PATIENT, LEVEL III Diagnosis: Chronic atrial fibrillation[ICD10: I48.2] Diagnosis: Cough[ICD10: R05] Laura Bahena MD, [facility] CPT-4: 14636 12/06/2018 ([id number]) 82553 EST. PATIENT, LEVEL III Diagnosis: Acute laryngopharyngitis[ICD10: J06.0] Laura Bahena MD, [facility] CPT-4: 63388 11/30/2018 ([id number]) 73879 EST. 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 PATIENT, LEVEL III Diagnosis: Raynaud's syndrome without gangrene[ICD10: I73.00] Diagnosis: Pain in left hand[ICD10: M79.642] Diagnosis: Pain in right hand[ICD10: M79.641] Karma Bahena MD, [facility] CPT- 4: 40869 10/09/2018 66530 EST. PATIENT, LEVEL III Diagnosis: Cough[ICD10: R05] Diagnosis: Acute laryngopharyngitis[ICD10: J06.0] Diagnosis: Other allergic rhinitis[ICD10: J30.89] Diagnosis: Raynaud's syndrome without gangrene[ICD10: I73.00] Katharine Bahena MD, [facility] CPT-4: 50401 09/12/2018 ([id number]) 23187 EST. PATIENT, LEVEL IV Diagnosis: Raynaud's syndrome without gangrene[ICD10: I73.00] Diagnosis: Pain in right toe(s)[ICD10: M79.674] Diagnosis: Chronic atrial fibrillation[ICD10: I48.2] Karma Bahena MD [facility] CPT-4: 72143 08/14/2018 ([id number]) 18444 EST. PATIENT, LEVEL IV Diagnosis: Chronic atrial fibrillation[ICD10: I48.2] Diagnosis: Sebaceous cyst[ICD10: L72.3] Diagnosis: Raynaud's syndrome without gangrene[ICD10: I73.00] Karma Bahena MD, [facility] CPT-4: 57109 07/26/2018 ([id number]) 68568 EST. PATIENT, LEVEL IV Diagnosis: Essential (primary) hypertension[ICD10: I10] Diagnosis: Atrophy of thyroid (acquired)[ICD10: E03.4] Diagnosis: Gastro-esophageal reflux disease without esophagitis[ICD10: K21.9] Karma Bahena MD, [facility] CPT-4: 09251 06/04/2018 ([id number]) 34897 EST. PATIENT, LEVEL IV Diagnosis: Essential (primary) hypertension[ICD10: I10] Diagnosis: Atrophy of thyroid (acquired)[ICD10: E03.4] Diagnosis: Other emt intermediate (current) drug therapy[ICD10: Z79.899] Karma Bahena MD, [facility] CPT-4: 59750 01/31/2018 ([id number]) 21581 EST. PATIENT, LEVEL IV Diagnosis: Essential (primary) hypertension[ICD10: I10] Diagnosis: Chronic atrial fibrillation[ICD10: I48.2] Diagnosis: Allergic rhinitis due to pollen[ICD10: J30.1] Diagnosis: Cough[ICD10: R05] Karma Bahena MD, [facility] CPT-4: 90415 12/14/2017 78720 EST. PATIENT, LEVEL IV Diagnosis: Other allergic rhinitis[ICD10: J30.89] Katharine Bahena MD, [facility] CPT- 4: 28538 12/07/2017 ([id number]) 21309 EST. PATIENT, LEVEL IV Diagnosis: Essential (primary) hypertension[ICD10: I10] Diagnosis: Chronic atrial fibrillation[ICD10: I48.2] Diagnosis: Atrophy of thyroid (acquired)[ICD10: E03.4] Karma Bahena MD, [facility] CPT-4: 91808 11/14/2017 ([id number]) 14414 EST. PATIENT, LEVEL IV Diagnosis: Essential (primary) hypertension[ICD10: I10] Diagnosis: Localized edema[ICD10: R60.0] Diagnosis: Encounter for immunization[ICD10: Z23] Diagnosis: Age-related osteoporosis without current pathological fracture[ICD10: M81.0] Karma Bahena MD, [facility] CPT-4: 28295 03/27/2017 ([id number]) 68428 EST. PATIENT, LEVEL IV Diagnosis: Essential (primary) hypertension[ICD10: I10] Diagnosis: Chronic atrial fibrillation[ICD10: I48.2] Diagnosis: Dysphonia[ICD10: R49.0] Karma Bahena MD, [facility] CPT-4: 82632 01/19/2017 ([id number]) Miscellaneous no charge Diagnosis: Cough[ICD10: R05] Diagnosis: Acute upper respiratory infection, unspecified[ICD10: J06.9] Laura Bahena MD, [facility] CPT-4: 30993 11/29/2016 47061 EST. PATIENT, LEVEL III Diagnosis: Cough[ICD10: R05] Diagnosis: Acute laryngopharyngitis[ICD10: J06.0] Katharine Bahena MD, [facility] CPT- 4: 44404 11/23/2016 ([id number]) 32222 EST. PATIENT, LEVEL III Diagnosis: Acute laryngopharyngitis[ICD10: J06.0] Laura Bahena MD, [facility] CPT-4: 96980 11/21/2016 ([id number]) Miscellaneous no charge Diagnosis: Laceration without foreign body of right forearm, subsequent encounter[ICD10: S51.811D] Karma Bahena MD, [facility] CPT-4: 74473 11/17/2016 ([id number]) Miscellaneous no charge Diagnosis: Laceration without foreign body of right forearm, subsequent encounter[ICD10: S51.811D] Karma Bahena MD, [facility] CPT-4: 77948 11/14/2016 ([id number]) Miscellaneous no charge Diagnosis: Laceration without foreign body of right forearm, subsequent encounter[ICD10: S51.811D] Karma Bahena MD, [facility] CPT-4: 13120 11/11/2016 ([id number]) Miscellaneous no charge Diagnosis: Laceration without foreign body of right forearm, subsequent encounter[ICD10: S51.811D] Karma Bahena MD, [facility] CPT-4: 40077 11/10/2016 ([id number]) 76654 EST. PATIENT, LEVEL II Diagnosis: Laceration without foreign body of right forearm, subsequent encounter[ICD10: S51.811D] Karma Bahena MD, [facility] CPT-4: 46120 11/08/2016 ([id number]) 16958 EST. PATIENT, LEVEL IV Diagnosis: Atrophy of thyroid (acquired)[ICD10: E03.4] Diagnosis: Chronic atrial fibrillation[ICD10: I48.2] Diagnosis: Laceration without foreign body of right forearm, subsequent encounter[ICD10: S51.811D] Karma Bahena MD, [facility] CPT-4: 98541 11/02/2016 ([id number]) 51185 EST. PATIENT, LEVEL III Diagnosis: Laceration without foreign body of right forearm, initial encounter[ICD10: S51.811A] Laura Bahena MD, [facility] CPT-4: 15777 10/27/2016 ([id number]) 11821 EST. PATIENT, LEVEL IV Diagnosis: Essential (primary) hypertension[ICD10: I10] Diagnosis: Chronic atrial fibrillation[ICD10: I48.2] Karma Bahena MD [facility] CPT-4: 89659 08/31/2016 ([id number]) 44499 EST. PATIENT, LEVEL IV Diagnosis: Localized edema[ICD10: R60.0] Diagnosis: Essential (primary) hypertension[ICD10: I10] Diagnosis: Abdominal distension (gaseous)[ICD10: R14.0] Karma Bahena MD [facility] CPT-4: 09875 07/27/2016 ([id number]) 81622 EST. PATIENT, LEVEL IV Diagnosis: Essential (primary) hypertension[ICD10: I10] Diagnosis: Chronic atrial fibrillation[ICD10: I48.2] Diagnosis: Localized edema[ICD10: R60.0] Karma Bahena MD [facility] CPT-4: 63801 06/23/2016 ([id number]) 85210 EST. PATIENT, LEVEL III Diagnosis: Localized edema[ICD10: R60.0] Karma Bahena MD [facility] CPT-4: 22417 06/09/2016 ([id number]) 37195 EST. PATIENT, LEVEL III Diagnosis: Irritable bowel syndrome without diarrhea[ICD10: K58.9] Diagnosis: Pruritus ani[ICD10: L29.0] Karma Bahena MD [facility] CPT-4: 71727 05/25/2016 ([id number]) 04714 EST. PATIENT, LEVEL III Diagnosis: Abdominal distension (gaseous)[ICD10: R14.0] Diagnosis: Encounter for screening mammogram for malignant neoplasm of breast[ICD10: Z12.31] Karma Bahena MD [facility] CPT-4: 73855 05/17/2016 ([id number]) 59289 EST. PATIENT, LEVEL IV Diagnosis: Essential (primary) hypertension[ICD10: I10] Diagnosis: First degree hemorrhoids[ICD10: K64.0] Diagnosis: Encounter for immunization[ICD10: Z23] Karma Bahena MD [facility] CPT-4: 73907 03/24/2016 ([id number]) 66207 EST. PATIENT, LEVEL III Diagnosis: Epidermal cyst[ICD10: L72.0] Diagnosis: Essential (primary) hypertension[ICD10: I10] Diagnosis: Chronic atrial fibrillation[ICD10: I48.2] Diagnosis: Other emt intermediate (current) drug therapy[ICD10: Z79.899] Karma Bahena MD [facility] CPT-4: 30174 02/02/2016 ([id number]) 75618 EST. PATIENT, LEVEL III Diagnosis: Acute anal fissure[ICD10: K60.0] Karma Bahena MD [facility] CPT-4: 66686 2016 ([id number]) 51653 EST. PATIENT, LEVEL III Diagnosis: Allergic rhinitis due to pollen[ICD10: J30.1] Diagnosis: Acute upper respiratory infection, unspecified[ICD10: J06.9] Laura Bahena MD [facility] CPT-4: 87989 12/21/2015 ([id number]) 15147 EST. PATIENT, LEVEL III Diagnosis: Essential (primary) hypertension[ICD10: I10] Diagnosis: Chronic atrial fibrillation[ICD10: I48.2] Karma Bahena MD, [facility] CPT-4: 61115 11/03/2015 ([id number]) Miscellaneous no charge Diagnosis: Impacted cerumen, right ear[ICD10: H61.21] Katharine Bahena MD [facility] CPT-4: 64768 10/19/2015 51469 EST. PATIENT, LEVEL IV Diagnosis: Impacted cerumen, right ear[ICD10: H61.21] Diagnosis: Other allergic rhinitis[ICD10: J30.89] Katharine Bahena MD [facility] CPT- 4: 08012 10/13/2015 ([id number]) 70131 EST. PATIENT, LEVEL IV Diagnosis: Essential (primary) hypertension[ICD10: I10] Diagnosis: Chronic atrial fibrillation[ICD10: I48.2] Diagnosis: Urge incontinence[ICD10: N39.41] Diagnosis: Age-related osteoporosis without current pathological fracture[ICD10: M81.0] Karma Bahena MD, [facility] CPT-4: 97960 09/29/2015 ([id number]) 85124 EST. PATIENT, LEVEL IV Diagnosis: Essential (primary) hypertension[ICD10: I10] Diagnosis: Chronic atrial fibrillation[ICD10: I48.2] Diagnosis: Irritable bowel syndrome without diarrhea[ICD10: K58.9] Diagnosis: Unspecified hemorrhoids[ICD10: K64.9] Karma Bahena MD, [facility] CPT-4: 88208 09/15/2015 ([id number]) 33215 EST. 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 PATIENT, LEVEL III Diagnosis: Hematuria, unspecified[ICD10: R31.9] Diagnosis: Other urethritis[ICD10: N34.2] Diagnosis: Other specified noninflammatory disorders of vagina[ICD10: N89.8] Karma Bahena MD, [facility] CPT-4: 23485 05/26/2015 65135 EST. PATIENT, LEVEL IV Diagnosis: Gout, unspecified[ICD10: M10.9] Karma Bahena MD, [facility] CPT-4: 50843 05/21/2015 ([id number]) 61201 EST. PATIENT, LEVEL IV Diagnosis: Chronic atrial fibrillation[ICD10: I48.2] Diagnosis: Irritable bowel syndrome without diarrhea[ICD10: K58.9] Diagnosis: Cystocele, unspecified[ICD10: N81.10] Diagnosis: Urge incontinence[ICD10: N39.41] Diagnosis: Fecal smearing[ICD10: R15.1] Diagnosis: Hypothyroidism, unspecified[ICD10: E03.9] Karma Bahena MD, [facility] CPT-4: 72746 05/07/2015 ([id number]) 28581 EST. PATIENT, LEVEL III Diagnosis: Atrial fibrillation[ICD9: 427.31] Diagnosis: Bloating[ICD9: 787.3] Karma Bahena MD, [facility] CPT-4: 55047 03/23/2015 ([id number]) 67313 EST. PATIENT, LEVEL IV Diagnosis: Abdominal pain[ICD9: 789.00] Diagnosis: Atrial fibrillation[ICD9: 427.31] Diagnosis: ENCNTR LONG-ANTICOAG USE[ICD9: V58.61] Karma Bahena MD [facility] CPT-4: 63406 03/09/2015 ([id number]) 25365 EST. PATIENT, LEVEL IV Diagnosis: HEMATURIA NOS[ICD9: 599.70] Diagnosis: Atrial fibrillation[ICD9: 427.31] Diagnosis: HYPOTHYROIDISM[ICD9: 244.9] Karma Bahena MD [facility] CPT-4: 06594 10/30/2014 ([id number]) 88630 EST. PATIENT, LEVEL IV Diagnosis: Atrial fibrillation[ICD9: 427.31] Diagnosis: ALLERGIC RHINITIS[ICD9: 477.9] Diagnosis: Need for pneumococcal vaccine[ICD9: V03.82] Diagnosis: Osteoarthritis[ICD9: 715.90] Diagnosis: Osteoporosis[ICD9: 733.00] Karma Bahena MD [facility] CPT-4: 76753 07/11/2014 ([id number]) 78283 EST. PATIENT, LEVEL III Diagnosis: Urge incontinence[ICD9: 788.31] Diagnosis: Dysuria[ICD9: 788.1] Karma Bahena MD [facility] CPT-4: 85717 05/20/2014 ([id number]) 53270 EST. PATIENT, LEVEL IV Diagnosis: Atrial fibrillation[ICD9: 427.31] Diagnosis: Hematuria[ICD9: 599.70] Diagnosis: Dysuria[ICD9: 788.1] Diagnosis: ESSENTIAL HYPERTENSION[ICD9: 401.9] Karma Bahena MD [facility] CPT- 4: 14794 04/29/2014 ([id number]) 37275 EST. PATIENT, LEVEL IV Diagnosis: ESSENTIAL HYPERTENSION[ICD9: 401.9] Diagnosis: ALLERGIC RHINITIS[ICD9: 477.9] Karma Bahena MD [facility] CPT-4: 48000 03/20/2014 ([id number]) 88001 EST. PATIENT, LEVEL IV Diagnosis: ESSENTIAL HYPERTENSION[ICD9: 401.9] Diagnosis: ATRIAL FIBRILLATION[ICD9: 427.31] Diagnosis: Irritable bowel[ICD9: 564.1] Karma Bahena MD [facility] CPT-4: 87091 03/05/2014 ([id number]) 35457 EST. PATIENT, LEVEL IV Diagnosis: Esophageal reflux[ICD9: 530.81] Diagnosis: DIARRHEA[ICD9: 787.91] Diagnosis: ABDOM PAIN NOS SITE[ICD9: 789.00] Karma Bahena MD, [facility] CPT- 4: 30365 01/29/2014 ([id number]) 29778 EST. PATIENT, LEVEL III Diagnosis: Irritable bowel[ICD9: 564.1] Diagnosis: DIARRHEA[ICD9: 787.91] Laura Bahena MD, [facility] CPT-4: 39848 01/14/2014 ([id number]) 04934 EST. PATIENT, LEVEL IV Diagnosis: ESSENTIAL HYPERTENSION[ICD9: 401.9] Diagnosis: ATRIAL FIBRILLATION[ICD9: 427.31] Diagnosis: URGE INCONTINENCE[ICD9: 788.31] Diagnosis: MALAISE AND FATIGUE[ICD9: 780.79] Diagnosis: Dyspnea[ICD9: 786.09] Karma Bahena MD, [facility] CPT-4: 59805 12/25/2013 ([id number]) 53522 EST. PATIENT, LEVEL IV Diagnosis: ESSENTIAL HYPERTENSION[SNOMED: 31086482] Diagnosis: ATRIAL FIBRILLATION[ICD9: 427.31] Diagnosis: Abdominal pain[ICD9: 789.00] Diagnosis: ESOPHAGEAL REFLUX[ICD9: 530.81] Karma Bahena MD, [facility] CPT-4: 67938 11/27/2013 ([id number]) 79339 EST. PATIENT, LEVEL IV Diagnosis: ESSENTIAL HYPERTENSION[SNOMED: 84016200] Diagnosis: ATRIAL FIBRILLATION[ICD9: 427.31] Diagnosis: Chronic osteoarthritis[ICD9: 715.90] Karma Bahena MD, [facility] CPT- 4: 73194 09/12/2013 ([id number]) 99531 EST. PATIENT, LEVEL III Diagnosis: ESSENTIAL HYPERTENSION[SNOMED: 71582288] Diagnosis: Bruising[ICD9: 924.9] Diagnosis: ENCNTR LONG-RX USE NEC[ICD9: V58.69] Karma Bahena MD, [facility] CPT- 4: 44746 08/15/2013 ([id number]) 97053 EST. PATIENT, LEVEL IV Diagnosis: ESSENTIAL HYPERTENSION[SNOMED: 07033279] Diagnosis: Hematuria[ICD9: 599.70] Diagnosis: Dysuria[ICD9: 788.1] Karma Bahena MD [facility] CPT-4: 54075 08/01/2013 ([id number]) 43650 EST. PATIENT, LEVEL III Diagnosis: UTI[ICD9: 599.0] Diagnosis: Hematuria[ICD9: 599.70] Laura Bahena MD [facility] CPT-4: 93149 07/01/2013 ([id number]) 92042 EST. PATIENT, LEVEL III Diagnosis: ATRIAL FIBRILLATION[ICD9: 427.31] Diagnosis: ESSENTIAL HYPERTENSION[SNOMED: 53768048] Karma Bahena MD [facility] CPT-4: 72474 05/29/2013 ([id number]) 17814 EST. PATIENT, LEVEL IV Diagnosis: Atrial fibrillation[ICD9: 427.31] Diagnosis: Encounter for monitoring digoxin therapy[ICD9: V58.83] Diagnosis: ESSENTIAL HYPERTENSION[SNOMED: 20475272] Karma Bahena MD [facility] CPT-4: 32887 05/15/2013 ([id number]) 76902 EST. PATIENT, LEVEL IV Diagnosis: ESSENTIAL HYPERTENSION[SNOMED: 24373631] Diagnosis: ATRIAL FIBRILLATION[ICD9: 427.31] Diagnosis: PALPITATIONS[ICD9: 785.1] Diagnosis: Dizziness and giddiness[ICD9: 780.4] Karma Bahena MD [facility] CPT- 4: 29102 04/23/2013 ([id number]) 35541 EST. PATIENT, LEVEL III Diagnosis: OTHER CONSTIPATION[ICD9: 564.09] Diagnosis: ABDOM PAIN NOS SITE[ICD9: 789.00] Laura Bahena MD [facility] CPT- 4: 03339 03/21/2013 ([id number]) 19354 EST. PATIENT, LEVEL IV Diagnosis: ESSENTIAL HYPERTENSION[SNOMED: 37508884] Diagnosis: Atrial fibrillation[ICD9: 427.31] Karma Bahena MD [facility] CPT- 4: 90498 01/16/2013 ([id number]) Miscellaneous no charge Diagnosis: CELLULITIS OF HAND[ICD9: 682.4] Karma Bahena MD [facility] CPT-4: 90656 12/19/2012 ([id number]) Miscellaneous no charge Diagnosis: ENCOUNTER FOR THERAPEUTIC DRUG MONITORING[ICD9: V58.83] Diagnosis: CELLULITIS OF HAND[ICD9: 682.4] PARVEEN Freitas MD CPT-4: 75180 12/14/2012 Miscellaneous no charge Diagnosis: CELLULITIS OF HAND[ICD9: 682.4] PARVEEN Freitas MD CPT-4: 79479 12/12/2012 86893 EST. PATIENT, LEVEL II Diagnosis: CELLULITIS OF HAND[ICD9: 682.4] Diagnosis: ENCNTR LONG-RX USE NEC[ICD9: V58.69] Diagnosis: LONG-TERM USE ANTICOAGUL[ICD9: V58.61] Karma Bahena MD [facility] CPT-4: 86132 12/11/2012 ([id number]) 57911 EST. PATIENT, LEVEL III Diagnosis: CELLULITIS OF HAND[ICD9: 682.4] Karma Bahena MD [facility] CPT-4: 36121 12/10/2012 ([id number]) 33031 EST. PATIENT, LEVEL IV Diagnosis: Elevated digoxin level[ICD9: 796.0] Diagnosis: ATRIAL FIBRILLATION[ICD9: 427.31] Diagnosis: Inflammatory arthritis[ICD9: 714.9] Karma Bahena MD [facility] CPT- 4: 08363 10/30/2012 ([id number]) 06762 EST. PATIENT, LEVEL IV Diagnosis: Atrial fibrillation[ICD9: 427.31] Diagnosis: Anticoagulant long-term use[ICD9: V58.61] Diagnosis: ESSENTIAL HYPERTENSION[SNOMED: 50979027] [facility] CPT-4: 13584 08/08/2012 ([id number]) 59298 EST. PATIENT, LEVEL IV Diagnosis: ABDOM PAIN NOS SITE[ICD9: 789.00] Diagnosis: Constipation - functional[ICD9: 564.09] Diagnosis: EDEMA[ICD9: 782.3] Diagnosis: ATRIAL FIBRILLATION[ICD9: 427.31] [facility] CPT- 4: 54363 07/11/2012 ([id number]) 12427 EST. PATIENT, LEVEL III Diagnosis: Cystocele[ICD9: 618.01] Diagnosis: Rectocele[ICD9: 618.04] Karma Bahena MD [facility] CPT-4: 37892 05/08/2012 ([id number]) 00390 EST. 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 PATIENT, LEVEL IV Diagnosis: ATRIAL FIBRILLATION[ICD9: 427.31] Diagnosis: URGE INCONTINENCE[ICD9: 788.31] Diagnosis: MALAISE AND FATIGUE[ICD9: 780.79] Diagnosis: Dyspnea[ICD9: 786.09] Karma Bahena MD [facility] CPT-4: 90758 02/20/2012 62382 EST. PATIENT, LEVEL IV Diagnosis: Hematuria[ICD9: 599.70] Diagnosis: Vaginal yeast infection[ICD9: 112.1] Diagnosis: ATRIAL FIBRILLATION[ICD9: 427.31] [facility] CPT- 4: 33872 02/13/2012 ([id number]) 28555 EST. PATIENT, LEVEL IV Diagnosis: Atrial fibrillation[ICD9: 427.31] Diagnosis: Anticoagulation goal of INR 2 to 3[ICD9: V58.83] Diagnosis: Urinary incontinence, urge[ICD9: 788.31] Diagnosis: ESSENTIAL HYPERTENSION[SNOMED: 83588782] Karma Bahena MD, [facility] CPT-4: 74476 02/01/2012 ([id number]) 55607 EST. PATIENT, LEVEL IV Diagnosis: Atrial fibrillation[ICD9: 427.31] Diagnosis: Anticoagulant long-term use[ICD9: V58.61] Diagnosis: ESSENTIAL HYPERTENSION[SNOMED: 47344648] Karma Bahena MD, [facility] CPT-4: 71976 2012 55020 EST. PATIENT, LEVEL IV Diagnosis: UTI[ICD9: 599.0] Diagnosis: ESSENTIAL HYPERTENSION[SNOMED: 37891057] Diagnosis: MALAISE AND FATIGUE[ICD9: 780.79] Diagnosis: Esophageal reflux[ICD9: 530.81] Karma Bahena MD, [facility] CPT-4: 84065 12/01/2011 ([id number]) 42352 EST. PATIENT, LEVEL IV Diagnosis: UTI (urinary tract infection)[ICD9: 599.0] Diagnosis: ESSENTIAL HYPERTENSION[SNOMED: 19527534] Diagnosis: URGE INCONTINENCE[ICD9: 788.31] Karma Bahena MD, [facility] CPT-4: 82712 11/23/2011 ([id number]) 77902 EST. PATIENT, LEVEL IV Diagnosis: ESSENTIAL HYPERTENSION[SNOMED: 56767927] Diagnosis: IMPACTED CERUMEN[ICD9: 380.4] Diagnosis: MALAISE AND FATIGUE[ICD9: 780.79] Diagnosis: EDEMA[ICD9: 782.3] Karma Bahena MD, [facility] CPT-4: 26690 10/03/2011 73054 EST. PATIENT, LEVEL IV Diagnosis: ESSENTIAL HYPERTENSION[SNOMED: 02818555] Diagnosis: Generalized osteoarthritis[ICD9: 715.09] Diagnosis: OSTEOPOROSIS[ICD9: 733.00] Karma Bahena MD, [facility] CPT-4: 90065 08/08/2011 06785 EST. PATIENT, LEVEL IV Diagnosis: Muscle cramp[ICD9: 729.82] Diagnosis: Torticollis[ICD9: 723.5] Diagnosis: Rash[ICD9: 782.1] Karma Bahena MD, [facility] CPT-4: 23530 05/09/2011 99112 EST. PATIENT, LEVEL IV Diagnosis: Leg cramps, sleep related[ICD9: 327.52] Diagnosis: Underweight[ICD9: 783.22] [facility] CPT-4: 75709 03/29/2011 19624 EST. PATIENT, LEVEL IV Diagnosis: UTI[ICD9: 599.0] Diagnosis: Urge incontinence[ICD9: 788.31] Diagnosis: Loss of weight[ICD9: 783.21] Diagnosis: Palpitations[ICD9: 785.1] Diagnosis: Peripheral neuropathy, idiopathic[ICD9: 356.9] Karma Bahena MD, [facility] CPT-4: 44734 03/15/2011 Plan of Care Planned Activity Notes Codes Status Date Visit Plan: Edema - pt has been advised to elevate legs to prevent dependent edema, compression has been recommended to help to naturally decrease peripheral edema. Diuretic use has been discussed and pt has been instructed in appropriate use of such medication as necessary to further attempt to reduce peripheral edema. Atrial Fibrillation - pt on chronic anticoagulation and is currently rate controlled. The pt is to have labs done as appropriate to monitor medication levels and is to report if they start to feel as if their heart rate is becoming uncontrolled. Low sodium -check level today 01/03/2019 Appointment: Laura Colin WPtel: [address] [place] [address] (30 min) Complex 01/03/2019 Patient Education: Patient Medication Summary Completed 01/03/2019 Appointment: Laura Colin WPtel: [address] [place] [address] (30 min) Complex 12/13/2018 Visit Plan: Afib -hyponatremia -generalized weakness -Dr Bahena in to evaluate patient -plan to admit for further evaluation and treatment - will repeat labs -start IVF-monitor with telemetry and consult Dr Rock Depression -restart lexapro 5mg daily 12/10/2018 Appointment: Laura Colin WPtel: [address] [place] [address] (30 min) Complex 12/10/2018 Patient Education: Patient Medication Summary Completed 12/10/2018 Patient Education: Depression Completed 12/10/2018 Visit Plan: Afib- rate uncontrolled- called Dr [...] to monitor 12/06/2018 Appointment: Laura Colin WPtel: [phone] [phone] (15 min) Moderate 12/06/2018 Patient Education: Patient Medication Summary Completed 12/06/2018 Visit Plan: Pharyngitis-Discussed natural and expected course of this diagnosis and need to alert me if symptoms do not follow expected course, or if any worse. Recommended salt water gargles as needed for pain. Ty lenol/motrin as needed for fever/discomfort. 11/30/2018 Appointment: Laura Colin WPtel: [phone] [phone] [place] (30 min) Complex 11/30/2018 Patient Education: Patient Medication Summary Completed 11/30/2018 Appointment: Karma Bahena WPtel: [phone] [phone] [place] (15 min) Moderate 11/14/2018 Visit [...] imvexxy 10/31/2018 Appointment: Karma Bahena WPtel: [phone] [phone] [place] (15 min) Moderate 10/31/2018 Patient Education: Patient Medication Summary Completed 10/31/2018 Visit Plan: Hand pain with arthritis - Raynaud syndrome - discussed with pt - RX for Voltaren gel sent to the pharmacy. continue with amlodipine. 10/09/2018 Appointment: Karma Bahena WPtel: [phone] [facility]6676[facility] (15 min) Moderate 10/09/2018 Patient Education: Patient Medication Summary Completed 10/09/2018 Appointment: Karma Bahena WPtel: [phone] [facility]6676[facility] (15 min) Moderate 10/01/2018 Visit Plan: [...] or concerns. 09/12/2018 Appointment: Katharine Dai WPtel: [facility]1 [facility]6676[facility] (15 min) Moderate 09/12/2018 Patient Education: Patient Medication Summary Completed 09/12/2018 Appointment: Karma Bahena WPtel: [phone] [facility] (15 min) Moderate 08/16/2018 Visit Plan: [...] removed. 08/14/2018 Appointment: [facility] Bahen[facility]Ptel: [phone] [facility] [place] (15 min) Moderate 08/14/2018 Patient Education: [...] surgically removed. 07/26/2018 Appointment: Karma Bahena WPtel: [phone] [facility] [place] (15 min) Moderate 07/26/2018 Patient Education: [...] not improving. 06/04/2018 Appointment: Karma Bahena WPtel: [facility]0 [facility]66[facility] (15 min) Moderate 06/04/2018 Patient Education: Patient Medication Summary Completed 06/04/2018 Appointment: Karma Bahena WPtel: [address] [place], [place] [address] (15 min) Moderate 03/14/2018 Visit Plan: [...] q 3 months or q 6 m [facility] based on previous levels of control. 01/31/2018 Appointment: Katharine Dai WPtel: [facility]1 [address] - Annual Wellness Visit 01/31/2018 Patient Education: [...] WPtel: [facility]7 [facility]66[facility] (15 min) Moderate 12/14/2017 Patient Education: [...] allergy spray. 12/07/2017 Appointment: Katharine Dai WPtel: [facility]4 [facility] (15 min) Moderate 12/07/2017 Patient Education: [...] control. 11/14/2017 Appointment: Karma Bahena WPtel: [phone] [facility]6676[facility] (15 min) Moderate 11/14/2017 Patient Education: Patient [...] [facility]5 [facility] [facility] - Annual Wellness Visit 01/23/2017 Patient [...] [facility]0 [facility] (15 min) Moderate 01/19/2017 Patient Education: Patient Medication Summary Completed 01/19/2017 Care Plan: Referral Order SNOMED-CT : [id number] Pending 01/19/2017 Appointment: Karma Bahena WPtel: [facility]5 [facility] (15 min) Moderate 01/04/2017 Appointment: Karma Bahena WPtel: [facility]1 [facility] (15 min) Moderate 12/28/2016 Visit Plan: [id number] zpack-call if symptoms do not resolve or if any worse. Patient verbalized understanding of plan. 11/29/2016 Appointment: Laura Colin WPtel: [facility]6 [phone] (15 min) Moderate 11/29/2016 Patient Education: Patient [...] pharmacy. 11/23/2016 Appointment: Katharine Dai WPtel: [phone] [facility] (15 min) Moderate 11/23/2016 Patient Education: Patient Medication Summary Completed 11/23/2016 Visit Plan: Pharyngitis-Discussed natural and expected course of this diagnosis and need to alert me if symptoms do not follow expected course, or if any worse. Recommended salt water gargles as needed for pain. Ty lenol/motrin as needed for fever/discomfort. 11/21/2016 Appointment: Laura Colin WPtel: [facility]6 [phone] (15 min) Moderate 11/21/2016 Patient Education: [...] monitor symptoms. 11/08/2016 Appointment: Karma Bahena WPtel: [facility]7 [facility] (10 min) Simple 11/08/2016 Patient Education: [...] etc. 11/02/2016 Appointment: Karma Bahena WPtel: [phone] [facility] (15 min) Moderate 11/02/2016 Appointment: Nurse Visit 11/02/2016 Patient Education: Patient Medication Summary Completed 11/02/2016 Appointment: Nurse Visit 10/31/2016 Visit Plan: Laceration-right forearm- Pt was instructed to keep the wound clean, cleanse with sterile saline, use bactroban ointment, call if redness, pustular drainage, or any other acute concerns. Follow up Monday for dressing changes. 10/27/2016 Appointment: Laura Colin WPtel: [phone] [phone] [place] (30 min) Complex 10/27/2016 Patient [...] symptoms. 08/31/2016 Appointment: Karma Bahena WPtel: [phone] [facility] (15 min) Moderate 08/31/2016 Patient Education: [...] [facility]5 [facility]66[facility] (15 min) Moderate 07/27/2016 Patient Education: Patient [...] of lasix 06/23/2016 Appointment: Karma Bahena WPtel: [address] [place], [place] [address] (15 min) Moderate 06/23/2016 Patient Education: Patient Medication Summary Completed 06/23/2016 Patient Education: Hypertension Completed 06/23/2016 Visit Plan: Edema - with Dyspnea - RX for laxis and compression socks - pt to call if not improving. 06/09/2016 Appointment: Karma Bahena WPtel: [address] [place], [place] [phone] [place] (15 min) Moderate 06/09/2016 Patient Education: Patient Medication Summary Completed 06/09/2016 Visit Plan: Abdominal pain and rectal itching - recommended pt to use betamethasone on vaginal/rectal region, monitor symptoms call if not improving. Continue with beano and simethicone 05/25/2016 Appointment: Karma Bahena WPtel: [phone] [facility] (15 min) Moderate 05/25/2016 Patient Education: Patient Medication Summary Completed 05/25/2016 Care Plan: SCREENINGMAMMOGRAPHYDIGITAL [facility] : [id number] Pending 05/20/2016 Visit Plan: Abdominal distension - use simethicone four times daily - after meals - if it does not help - in the next two weeks - call the office and we will do a ct scan of the abdomen and pelvis 05/17/2016 Appointment: Karma Bahena WPtel: [phone] [facility] [place] (15 min) Moderate 05/17/2016 Patient Education: [...] ointment 03/24/2016 Appointment: Karma Bahena WPtel: [phone] [facility] [place] (30 min) Complex 03/24/2016 Patient Education: [...] spray. 12/21/2015 Appointment: Laura Colin WPtel: [phone] [phone] (30 min) Complex 12/21/2015 Patient Education: [...] becoming uncontrolled. 11/03/2015 Appointment: Karma Bahena WPtel: [phone] [facility] (15 min) Moderate 11/03/2015 Patient Education: [...] had left kidney and ureter removed in [place]-doing well 09/01/2015 Appointment: (30 min) Complex 09/01/2015 Patient Education: Patient Medication Summary Completed 09/01/2015 Patient Education: Hypertension Completed 09/01/2015 Appointment: Karma Bahena WPtel: [facility]5 [facility] (15 min) Moderate [...] 05/13/2015 Care Plan: Referral Order SNOMED-CT : [id number] Ordered 05/08/2015 Visit Plan: Atrial Fibrillation - [...] becoming uncontrolled. 10/30/2014 Appointment: Karma Bahena WPtel: [facility]5 [facility] Follow up 10/30/2014 Patient Education: Patient Medication Summary Completed 10/30/2014 Appointment: Karma Bahena WPtel: [facility]5 [facility] Follow up 07/22/2014 Visit Plan: Atrial Fibrillation [...] in hospital. 07/11/2014 Appointment: Karma Bahena WPtel: [address] [place], [place] [phone] Sick 07/11/2014 Patient Education: Patient Medication Summary Completed 07/11/2014 Appointment: Karma Bahena WPtel: [address] [place], [place] [phone] Follow up 07/07/2014 Visit Plan: Urinary incontinence and recurrent UTI's - doctor will refer to Dr. Joel Collins - for nonsurgical intervention for potential electrical stimulation/training of pelvic floor muscles - for strengthening - can start on the treatment when you get back from [place] - will also ask him about doing a cystoscopy to look into bladder to see if there is any bladder irritation. keep using the Premarin - use about 25Cent size of cream onto finger to apply to urethra and do this three times weekly. 05/20/2014 Appointment: Karma Bahena WPtel: [address] [place], [place] [phone] Follow up 05/20/2014 Patient Education: Patient Medication Summary Completed 05/20/2014 Appointment: Karma Bahena WPtel: [address] [place], [place] [phone] Lab Draw 05/14/2014 Patient Education: Patient Medication [...] [facility]5 [facility] Follow up 04/29/2014 Patient Education: [...] allergy spray. 03/20/2014 Appointment: Karma Bahena WPtel: [address] [place], [place] [phone] Sick 03/20/2014 Patient Education: Patient Medication Summary [...] becoming uncontrolled. 03/05/2014 Appointment: Karma Bahena WPtel: [facility]5 [facility] Follow up 03/05/2014 Patient Education: Patient [...] with report. 01/29/2014 Appointment: Karma Bahena WPtel: [address] [place], [place] [phone] Follow up 01/29/2014 Patient Education: Patient Medication [...] exposure,and dyspnea on exertion - will ask [employer] Patient do an overnight oxygen study on [place] as she has cardiac history, weight loss, and nocturnal hypoxemia may be a part of her weight loss and fatigue. 12/25/2013 Appointment: Karma Bahena WPtel: [phone] [facility] Follow up 12/25/2013 Patient Education: Patient [...] twice daily. 11/27/2013 Appointment: Karma Bahena WPtel: [phone] [facility] Follow up 11/27/2013 [...] heart rate. Osteoarthritis - send pt to [facility] physical therapy for gereral osteoarhtritis [...] home. 09/12/2013 Appointment: Karma Bahena WPtel: [phone] [facility] Follow up 09/12/2013 Patient Education: Patient Medication Summary Completed 09/12/2013 Patient Education: Hypertension Completed 09/12/2013 Appointment: Karma Bahena WPtel: [facility]5 [place] [address] Follow up 08/21/2013 Visit Plan: Hypertension - [...] coumadin-check PT/INR 08/15/2013 Appointment: Karma Bahena WPtel: [facility] Follow up 08/15/2013 Patient Education: Patient [...] [facility]5 [facility] Follow up 08/01/2013 Patient Education: Patient Medication Summary Completed 08/01/2013 Patient Education: Hypertension Completed 08/01/2013 Appointment: Laura Colin WPtel: [facility]5 [phone] [place] Lab Draw 07/29/2013 Patient Education: Patient Medication Summary Completed 07/29/2013 Visit Plan: Osteoporosis-prolia on june 25-patient to let Dr Hansen know 07/01/2013 Appointment: Laura Colin WPtel: [facility]5 [phone] [place] Follow up 07/01/2013 Appointment: Karma Bahena WPtel: [address] [place], [place] [phone] Follow up 07/01/2013 Patient Education: Patient Medication Summary Completed 07/01/2013 Appointment: Karma Bahena WPtel: [address] [place], [place] [phone] Follow up 06/25/2013 Appointment: Karma Bahena WPtel: [address] [place], [place] [address] [place] Lab Draw 06/20/2013 Patient Education: Patient Medication Summary Completed 06/20/2013 Appointment: Karma Bahena WPtel: [address] [place] [address] [place] Lab Draw 06/19/2013 Visit Plan: Atrial [...] pressure readings at home. 05/29/2013 Appointment: Karma Bahenatel: [phone] [facility] Follow up 05/29/2013 Patient Education: Patient [...] home. 05/15/2013 Appointment: Karma Bahena WPtel: [phone] [facility] Other 05/15/2013 Patient Education: Patient Medication [...] shot today. 04/23/2013 Appointment: Karma Bahena WPtel: [phone] [facility] Other 04/23/2013 Patient Education: Patient Medication [...] [facility]5 [phone] Follow up 03/21/2013 Patient Education: Patient [...] becoming uncontrolled. 01/16/2013 Appointment: Karma Bahena WPtel: [address] [place], [place] [phone] Follow up 01/16/2013 Patient Education: Patient Medication Summary Completed 01/16/2013 Patient Education: Hypertension Completed 01/16/2013 Visit Plan: Wound Instructions - Pt was instruced to keep the wound clean, wash with antibacterial soap, use triple antibiotic ointment, call if redness, pustular drainage, or any other acute conerns. 12/19/2012 Appointment: Karma Bahena WPtel: [address] [place], [place] [phone] Other 12/19/2012 Patient Education: Patient Medication Summary Completed 12/19/2012 Patient Education: Patient Medication Summary Completed 12/17/2012 Visit Plan: Cellulitis - improved- monitor symptoms - need to check handon Monday morning. 12/14/2012 Appointment: Karma Bahean WPtel: [facility]5 [facility] Follow up 12/14/2012 Patient Education: Patient Medication Summary Completed 12/14/2012 Visit Plan: Cellulitis - improved- monitor symptoms - need to check handon Monday morning. 12/12/2012 Appointment: Karma Bahena WPtel: [address] [place], [place] [phone] Work-in 12/12/2012 Patient Education: Patient Medication Summary [...] warmth, discharge. 12/10/2012 Appointment: Karma Bahena WPtel: [facility]5 [facility] Other 12/10/2012 Patient Education: Patient Medication [...] [facility]5 [facility] Follow up 10/30/2012 Patient Education: Patient Medication Summary Completed 10/30/2012 Appointment: Laura Colin WPtel: [facility]4 [phone] Lab Draw 09/13/2012 Patient Education: Patient [...] regimen. 07/11/2012 Appointment: Karma Bahena WPtel: [phone] [facility] swelling, leg edema [...] [facility]5 [facility] Follow up 04/18/2012 Patient Education: Patient Medication Summary Completed 04/18/2012 Patient Education: High Blood Pressure: Essential Hypertension Completed 04/18/2012 Appointment: Karma Bahena WPtel: [facility]5 [facility] [place] Follow up 04/09/2012 Appointment: Karma Bahena WPtel: [phone] [facility] [place] Lab Draw 04/04/2012 Appointment: Laura Colin WPtel: [phone] [phone] [place] Lab Draw 03/19/2012 [...] Completed 03/13/2012 Appointment: Karma Bahena WPtel: [phone] [facility] Lab Draw 03/08/2012 Patient Education: [...] cardiac rehab. 02/20/2012 Appointment: Karma Bahena WPtel: [phone] [facility] [place] Other 02/20/2012 [...] uncontrolled. 02/13/2012 Appointment: Laura Colin WPtel: [phone] [facility] Other 02/13/2012 Patient Education: Patient Medication Summary [...] would not change the medication. 02/01/2012 Appointment: Krama Bahena WPtel: [phone] [facility] [place] Other 02/01/2012 Patient Education: Patient Medication Summary Completed 02/01/2012 Patient Education: High Blood Pressure: Essential Hypertension Completed 02/01/2012 Appointment: Karma Bahena WPtel: [phone] [facility] at home. 2012 Appointment: Karma Bahena WPtel: [phone] [facility] Other 2012 Patient Education: Patient Medication Summary Completed 2012 Patient Education: High Blood Pressure: Essential Hypertension Completed 2012 Appointment: Karma Bahena WPtel: [facility]3 [facility] Follow up 12/20/2011 Visit Plan: Dicyclomine [...] emergency room. 12/01/2011 Appointment: Karma Bahena WPtel: [facility]5 [facility]6676[facility] Other 12/01/2011 Patient Education: Patient Medication Summary [...] infection resolves. 11/23/2011 Appointment: Laura Colin WPtel: [facility]9 [facility] [place] [address] Other 11/23/2011 Patient Education: Patient Medication Summary Completed 11/23/2011 Patient Education: High Blood Pressure: Essential Hypertension Completed 11/23/2011 Visit Plan: Cerumen Impaction - The impacted cerumen was removed with the use of either ear currette alone or in combination with ear curette and water pick. The patient tolerated the procedure without incident and had improvement in hearing 10/17/2011 Appointment: Laura Colin WPtel: [address] [place], [place] [id number] [place] [address] Other 10/17/2011 Patient Education: Patient Medication Summary [...] [facility]0 [facility] [place] Other 10/03/2011 Patient Education: Patient [...] is evidence. 08/08/2011 Appointment: Karma Bahena WPtel: [address] [place], [place] [address] Other 08/08/2011 Patient Education: Patient Medication Summary Completed 08/08/2011 Patient Education: High Blood Pressure: Essential Hypertension Completed 08/08/2011 Visit Plan: Muscle cramps - the cramps are a little better, continue with the Diltiazem and it is okay to use the over the counter supplement with quinine - but use it sparingly. For the rash, use the prescripti on the trailer rental clerk prescribed for the itching , call if the rash is not improved. Torticollis - continue with physical therapy, call if the neck muscles do not continue to show improvement. 05/09/2011 Appointment: Karma Bahena WPtel: [facility]5 [facility] Other 05/09/2011 Patient Education: Patient Medication Summary [...] water aerobics. 03/29/2011 Appointment: Karma Bahena WPtel: [facility] [address] Other 03/29/2011 Patient Education: Patient Medication Summary Completed 03/29/2011 Appointment: Karma Bahena WPtel: [phone] [place] [address] Other 03/17/2011 Visit Plan: UTI - UA negative. Urge incontinence- restart on the vesicare- at 5 mg. Continue to avoid caffinated foods/fluids. Peripheral Neuropathy - per hands parter report - Continue with the metanex. Loss of weight - WEIGHT CHECK IN 2 WKS. Palpitations- likely stress induced. If the symptoms worsen, call the office. 03/15/2011 Appointment: JosefKarma helton WPtel: [facility]1 [address] Follow up 03/15/2011 Patient Education: Patient [...] therefore, would not change the medication. . Atrial Fibrillation - pt on chronic anticoagulation and is currently rate controlled. The pt is to have labs done as appropriate to monitor medication levels and is to report if they start to feel as if their heart rate is becoming uncontrolled. Digoxin and Coumadin doses are good for control of anticoagulation and heart rate. Osteoarthritis - send pt to [facility] physical therapy for gereral osteoarhtritis program for strengthening and pain reduction. Hypertension - well controlled - continue with current medications, continue with no added salt diet. Pt has been encouraged to exercise daily. The pt has been advised to call the office if there are any acute concerns about change in blood pressure readings at home. Nasal spray- use twice daily, one spray [...] spray in the nasal steroid allergy spray. increase the lisinopril to 20mg twice daily [...] Fstigue and dypnea- recommended cardiac rehab. . Hypertension - well [...] have the wax removed by irrigation. . Hypothyroidism - pt with chronic hypothyroidism, [...] For the rash, use the prescription the trailer rental clerk prescribed for the itching , call if [...] in blood pressure readings at home. . [id number]-[id number] zpack-call if symptoms do not resolve or if any worse. Patient verbalized understanding of plan. strep swab salt water gargle keflex if needed over the weekend . Pharyngitis-Discussed natural and expected course of this diagnosis and need to alert me if symptoms do not follow expected course, or if any worse. Recommended salt water gargles as needed for pain. Tylenol/motrin as needed for fever/discomfort. . Gout Attack - Pt complains of [...] color, consistency, recheck at follow up appointment. Bowel Regimen stool softener - four at [...] to go to the emergency room. . UTI - UA negative. Urge incontinence- restart on the vesicare- at 5 mg. Continue to avoid caffinated foods/fluids. Peripheral Neuropathy - per hands parter report - Continue with the metanex. Loss [...] with any changes, questions, or concerns. . Cerumen Impaction - The impacted cerumen [...] pt to call if not improving. . Atrial Fibrillation - pt on chronic [...] weight that was lost during hospitalization. . ua obtained, no need for culture [...] had left kidney and ureter removed in [place]- doing well . Hematuria - check UA. [...] is becoming uncontrolled. Incontinence - recommended vesicare. Increase miralax to full dose daily. Constipation [...] if symptoms not improved on this regimen. CHECK LABS TODAY ER IF SYMPTOMS WORSEN [...] if pneumonia vaccine was given in hospital. diflucan 150mg daily x 7 days - [...] know if this helps with your swelling. pt to have esr, crp, tsh, free [...] exposure,and dyspnea on exertion - will ask [employer] [facility] do an overnight oxygen study on [place] as she has cardiac history, weight loss, and nocturnal hypoxemia may be a part of her weight loss and fatigue. boil ease or recticare - if having acute or worsening discomfort - call doctor - may need an antibiotic. MUCINEX 600mg twice daily for decrease in mucus in throat . boil ease or recticare - if having acute or worsening discomfort - call doctor - may need an antibiotic. MUCINEX 600mg twice daily for decrease in mucus in throat . Cystocele and rectocele - pt assured [...] their heart rate is becoming uncontrolled. . Afib -hyponatremia -generalized weakness -Dr Bahena in to evaluate patient -plan to admit for further evaluation and treatment -will repeat labs -start IVF-monitor with telemetry and consult Dr Rock Depression -restart lexapro 5mg daily JUANI WRAP LOWER LEGS BIOTENE MOUTH WASH CHECK LABS DECREASE PRN DOSE OF ATIVAN TO 1/2 PILL D/C DILTIAZEM 30MG DILTIAZEM ER 60MG Q 12 HOURS . Edema - pt has been advised to elevate legs to prevent dependent edema, compression has been recommended to help to naturally decrease peripheral edema. Diuretic use has been discussed and pt has been instructed in appropriate use of such medication as necessary to further attempt to reduce peripheral edema. Atrial Fibrillation - pt on chronic anticoagulation and is currently rate controlled. The pt is to have labs done as appropriate to monitor medication levels and is to report if they start to feel as if their heart rate is becoming uncontrolled. Low sodium -check level today use simethicone four times daily - after [...] Gas/bloating-continue gas x-avoid gas forming foods-monitor symptoms PT HAS BEEN INSTRUCTED TO START USING [...] change in blood pressure readings at home. OK TO RESTART VESICARE DAILY OK TO [...] if their heart rate is becoming uncontrolled. Miralax- take 1/2 dose daily, and may [...] 25-patient to let Dr Hansen know . Atrial Fibrillation - pt on chronic [...] the treatment when you get back from [place] - will also ask him about doing [...] call if symptoms do not improve. . Medicare Exam - today we discussed [...] current meds - no change in symptoms. seborrheic Keratosis on left breast . [...]
[2019-01-07 07:53] LABS: ABG OXYGEN SATURATION 92 % (94-100); ABG PCO2 37 MMHG (35-45); ABG PH 7.41 (7.37-7.43); ABG PO2 60 MMHG (79-93); ABG TCO2 24.5 MMOL/L (21.0-31.0); ALLENS TEST YES-POS; INSPIRED O2 BIPAP; PATIENT TEMP 95.8; VENTILATOR NO
[2019-01-07 07:53] LABS: BASOPHILS # (AUTO) 0.1 10^3/uL (0.0-0.1); BASOPHILS % (AUTO) 1 % (0-10); EOSINOPHILS # (AUTO) 0.3 10^3/uL (0.0-0.3); EOSINOPHILS % (AUTO) 3 % (0-10); HEMATOCRIT 37 % (35-52); HEMOGLOBIN 12.5 G/DL (11.5-16.0); LYMPHOCYTES # (AUTO) 1.1 X 10^3 (1.0-4.0); LYMPHOCYTES % (AUTO) 8 % (12-44); MEAN CORPUSCULAR HEMOGLOBIN 30 PG (25-34); MEAN CORPUSCULAR HGB CONC 33 G/DL (32-36); MEAN CORPUSCULAR VOLUME 91 FL (80-99); MEAN PLATELET VOLUME 9.6 FL (7.4-10.4); MONOCYTES # (AUTO) 1.7 X 10^3 (0.0-1.0); MONOCYTES % (AUTO) 13 % (0-12); NEUTROPHILS # (AUTO) 9.7 X 10^3 (1.8-7.8); NEUTROPHILS % (AUTO) 76 % (42-75); PLATELET COUNT 384 10^3/uL (130-400); RED CELL DISTRIBUTION WIDTH 14.3 % (10.0-14.5); WHITE BLOOD COUNT 12.8 10^3/uL (4.3-11.0)
[2019-01-07 07:57] LABS: INR 1.3 (0.8-1.4); PROTHROMBIN TIME PATIENT 16.6 SEC (12.2-14.7)
[2019-01-07] MEDS ORDERED: RT-ALBUTEROL/IPRATROPIUM 3 ML (DUONEB) VIAL INH ONE (08:00)
--- OUTSIDE RECORDS SUMMARY | 2019-01-07 08:00 | XMS REPORT | CCD ---
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 Unknown Has never used illegal drugs 03/15/2011 Allergies, Adverse Reactions, Alerts Substance Reaction Codes Entered Date Inactivated Date Status BACTINE RxNorm: 339055 03/04/2011 No Inactive Date Active MICONAZOLE RxNorm: 6932 03/04/2011 No Inactive Date Active NEOSPORIN RxNorm: 183116 03/04/2011 No Inactive Date Active NEOMYCIN RxNorm: 7299 03/04/2011 No Inactive Date Active CORTISPORIN RxNorm: 92604 03/04/2011 No Inactive Date Active bactrim RxNorm: 751349 03/13/2012 No Inactive Date Active AUGMENTIN diarrhea RxNorm: 564998 2016 No Inactive Date Active METRONIDAZOLE Unknown [...] 401.9 ICD-10: I10 Active 12/25/2013 Unknown Other nurse ob (current) drug therapy ICD-9: V58.83 ICD-10: Z79.899 [...] ICD-9: 401.9 ICD-10: I10 12/25/2013 Active Other mcc (current) drug therapy ICD-9: V58.83 ICD-10: Z79.899 [...] ICD-9: 706.2 ICD-10: L72.0 02/01/2016 Active Other nurse ob (current) drug therapy ICD-9: V58.69 ICD-10: Z79.899 [...] 100 mg tablet,extended release 24 hr RxNorm: 534678 1 Tablet(s) PO daily 01/03/2019 09/29/2019 Active diltiazem ER 60 mg capsule,extended release 12 hr RxNorm: 786210 1 Capsule(s) PO Q12H 01/03/2019 No Stop Date Active Lasix 40 mg tablet RxNorm: 174308 1 Tablet(s) PO daily 01/03/2019 No Stop Date Active Lexapro 5 mg tablet RxNorm: 775094 1 Tablet(s) PO QPM 12/18/2018 01/02/2019 Inactive Lexapro 5 mg tablet RxNorm: 586619 1 Tablet(s) PO QPM 12/10/2018 12/17/2018 Inactive Keflex 500 mg capsule RxNorm: 203555 1 Capsule(s) PO TID 12/07/2018 12/13/2018 Inactive digoxin 125 mcg tablet RxNorm: 795794 Tablet(s) every other day 12/06/2018 11/30/2019 Active Keflex 500 mg capsule RxNorm: 730375 1 Capsule(s) PO TID 11/30/2018 12/06/2018 Inactive pantoprazole 40 mg tablet,delayed release RxNorm: 800430 1 TABLET(S) PO DAILY 11/29/2018 11/23/2019 Active amlodipine 5 mg tablet RxNorm: 244259 Tablet(s) 1/2 TABLET(S) PO DAILY MAY TAKE AN EXTRA 1/2 PILL AT THE END OF THE DAY IF BLOOD PRESSURE IS ELEVATED OVER 140 11/29/2018 01/02/2019 Inactive cyclobenzaprine 5 mg tablet RxNorm: 604875 1/2 Tablet(s) PO TID TABLET(S) 1/2 TABLET(S) PO Q8 NEEDED MUSCLE SPASMS 10/31/2018 04/28/2019 Active Imvexxy Starter Pack 4 mcg vaginal insert, dose pack RxNorm: 0693936 1 dose VAG BIW 10/31/2018 01/02/2019 Inactive Voltaren 1 % topical gel RxNorm: 566431 2 Gram(s) TOP QID on left shoulder and bilateral hands 10/17/2018 05/14/2019 Active PA APPROVED UNTIL JUL 09 2019 [id number] amlodipine 5 mg tablet RxNorm: 715788 1/2 TABLET(S) PO DAILY MAY TAKE AN EXTRA 1/2 PILL AT THE END OF THE DAY IF BLOOD PRESSURE IS ELEVATED OVER 140 10/15/2018 11/28/2018 Inactive Patient requests 90 days supply Voltaren 1 % topical gel RxNorm: 534037 2 Gram(s) TOP QID on left shoulder and bilateral hands 10/09/2018 10/16/2018 Inactive levothyroxine 75 mcg tablet RxNorm: 565046 1 Tablet(s) PO daily 09/19/2018 01/02/2019 Inactive Keflex 500 mg capsule RxNorm: 847918 1 Capsule(s) PO TID 09/12/2018 09/18/2018 Inactive spironolactone 25 mg tablet RxNorm: 164903 1 Tablet(s) PO BID 08/14/2018 11/06/2019 Active see new directions and quantity cyclobenzaprine 5 mg tablet RxNorm: 329100 Tablet(s) TABLET(S) 1/2 TABLET(S) PO Q8 NEEDED MUSCLE SPASMS 08/14/2018 10/30/2018 Inactive Nitro-Bid 2 % transdermal ointment RxNorm: 544669 1 dime size amount TD BID to fingers and toes 08/14/2018 09/12/2018 Inactive cyclobenzaprine 5 mg tablet RxNorm: 416826 TABLET(S) 1/2 TABLET(S) PO Q8 NEEDED MUSCLE SPASMS 08/06/2018 08/13/2018 Inactive amlodipine 5 mg tablet RxNorm: 460023 1/2 Tablet(s) PO daily may take an extra 1/2 pill at the end of the day if blood pressure is elevated over 140 07/26/2018 10/14/2018 Inactive cefdinir 300 mg capsule RxNorm: 960421 1 Capsule(s) PO BID 06/20/2018 06/26/2018 Inactive cefdinir 300 mg capsule RxNorm: 723807 1 Capsule(s) PO BID 06/20/2018 06/19/2018 Inactive metoprolol succinate ER 50 mg tablet,extended release 24 hr RxNorm: 706554 1.5 Tablet(s) daily 06/15/2018 01/02/2019 Inactive sucralfate 100 mg/mL oral suspension RxNorm: 505931 2 Teaspoon(s) PO TID as needed with reflux symptoms 06/04/2018 No Stop Date Active Vesicare 10 mg tablet RxNorm: 479136 1 TABLET(S) PO EVERY OTHER DAY 05/14/2018 01/02/2019 Inactive levothyroxine 50 mcg tablet RxNorm: 239715 1 TABLET(S) PO DAILY 04/30/2018 09/18/2018 Inactive Patient requests 90 days supply spironolactone 25 mg tablet RxNorm: 454993 1 Tablet(s) PO daily 03/14/2018 08/13/2018 Inactive levothyroxine 50 mcg tablet RxNorm: 088955 1 Tablet(s) PO daily 02/01/2018 04/29/2018 Inactive Eliquis 2.5 mg tablet RxNorm: 3287061 1 Tablet(s) PO BID 01/31/2018 02/20/2018 Inactive levothyroxine 50 mcg tablet RxNorm: 664476 1 Tablet(s) PO daily 01/31/2018 01/31/2018 Inactive Eliquis 2.5 mg tablet RxNorm: 0135240 TAKE 1 TABLET BY MOUTH TWICE DAILY 01/23/2018 07/21/2018 Inactive metoprolol succinate ER 50 mg tablet,extended release 24 hr RxNorm: 806933 1 TABLET(S) PO DAILY 01/23/2018 01/30/2018 Inactive metoprolol succinate ER 50 mg tablet,extended release 24 hr RxNorm: 458597 1.5 Tablet(s) daily 01/22/2018 06/14/2018 Inactive lisinopril 20 mg tablet RxNorm: 804273 1/2 Tablet(s) daily 01/19/2018 01/21/2018 Inactive Patient requests 90 days supply Singulair 10 mg tablet RxNorm: 803443 TAKE 1 TABLET BY MOUTH AT BEDTIME 01/18/2018 04/17/2018 Inactive Patient requests 90 days supply Singulair 10 mg tablet RxNorm: 257144 Tablet(s) PO 01/17/2018 01/17/2018 Inactive digoxin 125 mcg tablet RxNorm: 016618 1 TABLET(S) PO DAILY 01/03/2018 12/05/2018 Inactive Symbicort 160 mcg-4.5 mcg/actuation HFA aerosol inhaler RxNorm: 9152424 2 Puff(s) INH BID 12/14/2017 04/12/2018 Inactive please dispense an aerochamber for patient as well as her symbicort cyclobenzaprine 5 mg tablet RxNorm: 369145 Tablet(s) 1/2 TABLET(S) PO Q8 NEEDED MUSCLE SPASMS 12/14/2017 08/05/2018 Inactive pantoprazole 40 mg tablet,delayed release RxNorm: 163729 1 Tablet(s) PO daily 12/14/2017 11/28/2018 Inactive ProAir RespiClick 90 mcg/actuation breath activated RxNorm: 8947472 1-2 INH QID as needed shortness of breath 12/14/2017 07/11/2018 Inactive cyclobenzaprine 5 mg tablet RxNorm: 289804 1/2 TABLET(S) PO Q8 NEEDED MUSCLE SPASMS 12/08/2017 12/13/2017 Inactive betamethasone dipropionate 0.05 % topical ointment RxNorm: 476237 1 Application TOP TID use topically on the rectal tissue three times daily x 1 week then as needed 11/13/2017 01/02/2019 Inactive Premarin 0.625 mg/gram vaginal cream RxNorm: 039665 1/2 GRAM(S) VAG TIW 11/13/2017 10/30/2018 Inactive cyclobenzaprine 5 mg tablet RxNorm: 591868 1/2 TABLET(S) PO Q8 NEEDED MUSCLE SPASMS 10/17/2017 12/07/2017 Inactive Vesicare 10 mg tablet RxNorm: 114762 1 Tablet(s) PO every other day 10/17/2017 04/14/2018 Inactive lisinopril 20 mg tablet RxNorm: 410246 1 TABLET(S) PO DAILY 10/02/2017 01/18/2018 Inactive Patient requests 90 days supply levothyroxine 75 mcg tablet RxNorm: 945638 1 TABLET(S) PO DAILY 09/25/2017 01/30/2018 Inactive spironolactone 25 mg tablet RxNorm: 779849 1 TABLET(S) PO DAILY 08/16/2017 03/13/2018 Inactive cyclobenzaprine 5 mg tablet RxNorm: 284063 1/2 TABLET(S) PO Q8 NEEDED MUSCLE SPASMS 08/16/2017 10/16/2017 Inactive Eliquis 2.5 mg tablet RxNorm: 8189751 TAKE 1 TABLET BY MOUTH TWICE DAILY 07/26/2017 01/21/2018 Inactive cyclobenzaprine 5 mg tablet RxNorm: 349141 1/2 Tablet(s) PO Q8 as needed muscle spasms 06/19/2017 08/15/2017 Inactive lisinopril 20 mg tablet RxNorm: 981523 1 TABLET(S) PO DAILY 06/12/2017 10/01/2017 Inactive metoprolol succinate ER 50 mg tablet,extended release 24 hr RxNorm: 359385 1 TABLET(S) PO DAILY 04/07/2017 01/01/2018 Inactive spironolactone 25 mg tablet RxNorm: 341251 1 Tablet(s) PO daily 03/27/2017 03/13/2018 Inactive acyclovir 800 mg tablet RxNorm: 285959 1 Tablet(s) PO TID 03/21/2017 03/30/2017 Inactive acyclovir 800 mg tablet RxNorm: 986086 1 Tablet(s) PO TID 03/21/2017 03/20/2017 Inactive levothyroxine 75 mcg tablet RxNorm: 659319 1 Tablet(s) PO daily 03/16/2017 09/11/2017 Inactive spironolactone 25 mg tablet RxNorm: 054655 1 TABLET(S) PO DAILY 02/09/2017 03/26/2017 Inactive lisinopril 20 mg tablet RxNorm: 300906 1 TABLET(S) PO DAILY 01/02/2017 05/31/2017 Inactive Zithromax Z-Claudio 250 mg tablet RxNorm: 927966 1 Tablet(s) PO UD 11/29/2016 12/03/2016 Inactive ZPACK Keflex 500 mg capsule RxNorm: 594720 1 Capsule(s) PO TID 11/23/2016 12/02/2016 Inactive guaifenesin 400 mg tablet RxNorm: 309405 1 Tablet(s) PO Q6 as needed 11/23/2016 11/27/2016 Inactive omeprazole 40 mg capsule,delayed release RxNorm: 275984 1 Capsule(s) PO QPM 11/02/2016 12/13/2017 Inactive digoxin 125 mcg tablet RxNorm: 607449 1 TABLET(S) PO DAILY 10/27/2016 07/23/2017 Inactive cyclobenzaprine 5 mg tablet RxNorm: 440697 1/2 Tablet(s) PO Q8 PRN 10/25/2016 06/18/2017 Inactive prn muscle spasms Augmentin 500 mg-125 mg tablet RxNorm: 788159 1 Tablet(s) PO BID 10/24/2016 11/02/2016 Inactive spironolactone 25 mg tablet RxNorm: 097070 1 Tablet(s) PO daily 07/27/2016 02/08/2017 Inactive Lasix 20 mg tablet RxNorm: 739660 Tablet(s) PRN one to two times a week if needed 07/27/2016 01/02/2019 Inactive Patient requests 90 days supply Diflucan 150 mg tablet RxNorm: 469701 1 Tablet(s) PO daily 07/27/2016 08/02/2016 Inactive lisinopril 20 mg tablet RxNorm: 000325 1 Tablet(s) PO daily 07/12/2016 01/01/2017 Inactive Lasix 20 mg tablet RxNorm: 043072 1 TABLET(S) PO EVERY OTHER DAY EVERY OTHER DAY 06/10/2016 07/26/2016 Inactive Patient requests 90 days supply potassium chloride ER 10 mEq capsule,extended release RxNorm: 112806 1 CAPSULE(S) PO EVERY OTHER DAY 06/10/2016 07/26/2016 Inactive Patient requests 90 days supply potassium chloride ER 10 mEq capsule,extended release RxNorm: 079648 1 Capsule(s) PO every other day 06/09/2016 06/09/2016 Inactive Lasix 20 mg tablet RxNorm: 254357 1 Tablet(s) PO every other day every other day 06/09/2016 06/09/2016 Inactive levothyroxine 88 mcg tablet RxNorm: 908201 1 Tablet(s) PO daily 05/11/2016 11/06/2016 Inactive Premarin 0.625 mg/gram vaginal cream RxNorm: 811684 1/2 Gram(s) VAG TIW 03/24/2016 03/18/2017 Inactive metoprolol succinate ER 50 mg tablet,extended release 24 hr RxNorm: 848044 1 Tablet(s) PO daily 03/24/2016 03/18/2017 Inactive pantoprazole 40 mg tablet,delayed release RxNorm: 909120 1 Tablet(s) PO daily 02/08/2016 11/01/2016 Inactive betamethasone dipropionate 0.05 % topical ointment RxNorm: 953237 1 Application TOP TID use topically on the rectal tissue three times daily x 1 week then as needed 02/02/2016 11/12/2017 Inactive pantoprazole 40 mg tablet,delayed release RxNorm: 051592 1 Tablet(s) PO daily 2016 02/07/2016 Inactive alprazolam 0.25 mg tablet RxNorm: 274699 1 Tablet(s) PO Q6 as needed 12/04/2015 01/02/2019 Inactive Vesicare 10 mg tablet RxNorm: 663830 1 Tablet(s) PO every other day 11/03/2015 10/16/2017 Inactive alprazolam 0.25 mg tablet RxNorm: 282387 1 Tablet(s) PO Q6 as needed 11/03/2015 12/03/2015 Inactive Premarin 0.625 mg/gram vaginal cream RxNorm: 164717 1/2 Gram(s) VAG TIW 11/03/2015 03/23/2016 Inactive levothyroxine 88 mcg tablet RxNorm: 129681 1 Tablet(s) PO daily 11/03/2015 05/10/2016 Inactive Diflucan 150 mg tablet RxNorm: 330184 1 Tablet(s) PO daily 10/19/2015 10/25/2015 Inactive cetirizine 10 mg chewable tablet RxNorm: 6754613 1 Tablet(s) PO daily 10/13/2015 11/11/2015 Inactive cetirizine 10 mg capsule RxNorm: 1058073 1 Capsule(s) PO daily 10/13/2015 11/11/2015 Inactive Vesicare 10 mg tablet RxNorm: 507259 1/2 TABLET(S) PO BID 09/21/2015 11/02/2015 Inactive betamethasone dipropionate 0.05 % topical ointment RxNorm: 672466 1 Application TOP TID use topically on the rectal tissue three times daily x 1 week then as needed 09/15/2015 02/01/2016 Inactive lisinopril 20 mg tablet RxNorm: 524177 1 Tablet(s) PO daily 09/01/2015 07/11/2016 Inactive digoxin 125 mcg tablet RxNorm: 027880 1 Tablet(s) PO daily 09/01/2015 08/25/2016 Inactive Augmentin 500 mg-125 mg tablet RxNorm: 240322 1 Tablet(s) PO TID 05/26/2015 06/04/2015 Inactive Pyridium 200 mg tablet RxNorm: 0645978 1 Tablet(s) PO TID 05/26/2015 05/27/2015 Inactive levothyroxine 88 mcg tablet RxNorm: 897790 1 Tablet(s) PO daily except 1/2 pill on monday and 05/07/2015 11/02/2015 Inactive digoxin 125 mcg tablet RxNorm: 490388 1 Tablet(s) PO daily 05/07/2015 08/31/2015 Inactive lisinopril 20 mg tablet RxNorm: 280372 1 TABLET(S) PO BID 04/13/2015 09/01/2015 Inactive Coumadin 1 mg tablet RxNorm: 185352 1 TABLET(S) PO DAILY 03/31/2015 08/31/2015 Inactive Coumadin 2 mg tablet RxNorm: 910978 4MG IN AM AND 1MG AT NIGHT TABLET(S) PO DAILY DIRECTED. 03/31/2015 08/31/2015 Inactive levothyroxine 88 mcg tablet RxNorm: 092133 1 Tablet(s) PO daily 03/23/2015 05/06/2015 Inactive alprazolam 0.25 mg tablet RxNorm: 402370 Tablet(s) PO 03/23/2015 04/06/2015 Inactive levothyroxine 88 mcg tablet RxNorm: 827486 1 Tablet(s) PO daily 01/28/2015 03/22/2015 Inactive levothyroxine 88 mcg tablet RxNorm: 115680 1 Tablet(s) PO daily 01/28/2015 01/27/2015 Inactive diltiazem ER 120 mg capsule,extended release RxNorm: 219559 1 Capsule(s) PO BID patient would like 4 months at a time 01/06/2015 09/28/2015 Inactive digoxin 125 mcg tablet RxNorm: 636586 Tablet(s) 1 TABLET(S) PO DAILY 12/24/2014 12/23/2014 Inactive pt will be paying palomares (On $4 list)Patient requests 90 days supply digoxin 125 mcg tablet RxNorm: 682526 Tablet(s) 1 TABLET(S) PO DAILY M W F Sat and 2 tabs on T 12/24/2014 05/06/2015 Inactive pt will be paying palomares (On $4 list)Patient requests 90 days supply dicyclomine 20 mg tablet RxNorm: 999732 1 Tablet(s) PO daily 11/17/2014 08/31/2015 Inactive one ac dinner and up to tid prn levothyroxine 88 mcg tablet RxNorm: 742217 1 Tablet(s) PO daily 11/03/2014 01/27/2015 Inactive Premarin 0.625 mg/gram vaginal cream RxNorm: 607315 1 APPLICATION VAG 1 APPLICATOR PER VAGINA 3 TIMES PER WEEK 11/03/2014 07/30/2015 Inactive digoxin 125 mcg tablet RxNorm: 703063 1 TABLET(S) PO DAILY 09/29/2014 12/23/2014 Inactive pt will be paying palomares (On $4 list)Patient requests 90 days supply digoxin 125 mcg tablet RxNorm: 259268 1 TABLET(S) PO DAILY 07/11/2014 04/06/2015 Inactive Vesicare 10 mg tablet RxNorm: 241588 1/2 Tablet(s) PO BID 05/20/2014 05/14/2015 Inactive Levaquin 500 mg tablet RxNorm: 838163 1 Tablet(s) PO daily 05/06/2014 05/08/2014 Inactive take probiotic BID while on ABT Levaquin 500 mg tablet RxNorm: 990533 1 Tablet(s) PO daily 05/02/2014 05/05/2014 Inactive take probiotic BID while on ABT diltiazem ER 120 mg capsule,extended release RxNorm: 330544 1 Capsule(s) PO BID patient would like 4 months at a time 04/29/2014 2015 Inactive Vesicare 10 mg tablet RxNorm: 664328 1/2 Tablet(s) PO BID 04/29/2014 05/19/2014 Inactive lisinopril 20 mg tablet RxNorm: 861016 1 Tablet(s) PO BID 03/20/2014 03/14/2015 Inactive diltiazem 90 mg tablet RxNorm: 016544 1/2 TABLET(S) PO QPM 03/04/2014 04/28/2014 Inactive also 180 q am diltiazem ER 120 mg capsule,extended release RxNorm: 153649 1 Capsule(s) PO daily patient would like 4 months at a time 01/29/2014 04/28/2014 Inactive Vesicare 10 mg tablet RxNorm: 451129 1 Tablet(s) PO QHS 01/14/2014 04/28/2014 Inactive Coumadin 2 mg tablet RxNorm: 073198 4mg in AM and 1mg at night Tablet(s) PO daily as directed. 12/25/2013 03/30/2015 Inactive Metanx 3 mg-35 mg-2 mg tablet RxNorm: 1 Tablet(s) PO daily 12/25/2013 11/02/2015 Inactive digoxin 125 mcg tablet RxNorm: 786325 1 Tablet(s) PO daily 12/25/2013 09/28/2014 Inactive pt will be paying palomares (On $4 list) Coumadin 2 mg tablet RxNorm: 444031 7.5 wed 5mg other Tablet(s) PO as directed. 12/03/2013 12/24/2013 Inactive omeprazole 20 mg tablet,delayed release RxNorm: 269468 1 Tablet(s) PO BID 11/27/2013 04/28/2014 Inactive Coumadin 2 mg tablet RxNorm: 575760 5 mg daily Tablet(s) PO as directed. 11/26/2013 12/02/2013 Inactive 5 mg daily Xanax 0.25 mg tablet RxNorm: 880503 1 Tablet(s) PO Q6 PRN 11/11/2013 12/25/2013 Inactive alprazolam 0.25 mg tablet RxNorm: 444331 tablet oral 11/11/2013 03/22/2015 Inactive sucralfate 1 gram tablet RxNorm: 491827 1 Tablet(s) PO AC & HS 11/04/2013 11/03/2013 Inactive sucralfate 1 gram tablet RxNorm: 024161 1 Tablet(s) PO AC & HS 11/04/2013 01/02/2014 Inactive Synthroid 100 mcg tablet RxNorm: 208159 1 Tablet(s) PO daily 10/31/2013 10/25/2014 Inactive Synthroid 100 mcg tablet RxNorm: 784702 1 Tablet(s) PO daily 09/30/2013 10/29/2013 Inactive Vesicare 10 mg tablet RxNorm: 373429 1 Tablet(s) PO QHS 09/30/2013 01/13/2014 Inactive Lotemax 0.5 % eye ointment RxNorm: 8949582 ointment opht 09/06/2013 12/10/2013 Inactive levothyroxine 100 mcg tablet RxNorm: 991493 tablet oral 09/05/2013 11/02/2014 Inactive Synthroid 100 mcg tablet RxNorm: 377691 1 Tablet(s) PO daily 09/05/2013 09/29/2013 Inactive Prolia 60 mg/mL Sub-Q Syringe RxNorm: 205510 1 Milliliter(s) SQ 06/25/2013 11/02/2015 Inactive dicyclomine 20 mg tablet RxNorm: 834900 1 Tablet(s) PO daily 06/24/2013 06/18/2014 Inactive one ac dinner and up to tid prn omeprazole 20 mg tablet,delayed release RxNorm: 450284 1 Tablet(s) PO BID 06/24/2013 11/26/2013 Inactive Cipro 500 mg tablet RxNorm: 373878 1 Tablet(s) PO BID 06/20/2013 06/26/2013 Inactive diltiazem ER 120 mg capsule,extended release RxNorm: 566767 1 Capsule(s) PO daily patient would like 4 months at a time 06/03/2013 01/28/2014 Inactive Coumadin 2 mg tablet RxNorm: 749381 as directed Tablet(s) PO as directed. 05/29/2013 11/25/2013 Inactive 5 mg daily Synthroid 88 mcg tablet RxNorm: 393999 1 Tablet(s) PO daily 04/24/2013 04/23/2013 Inactive Synthroid 88 mcg tablet RxNorm: 300497 1 Tablet(s) PO daily 04/24/2013 07/28/2013 Inactive Premarin 0.625 mg/gram vaginal cream RxNorm: 443583 1 Application VAG 1 applicator per vagina 3 times per week 04/23/2013 04/17/2014 Inactive Influenza Virus Vaccine 0.5 mL RxNorm: IM 04/23/2013 04/23/2013 Inactive digoxin 125 mcg tablet RxNorm: 448363 1 Tablet(s) PO daily 02/20/2013 04/20/2013 Inactive pt will be paying palomares (On $4 list) Digox 125 mcg tablet RxNorm: 5340337 tablet oral 02/13/2013 03/20/2014 Inactive digoxin 125 mcg tablet RxNorm: 237006 1 Tablet(s) PO daily 02/13/2013 02/19/2013 Inactive diltiazem 90 mg tablet RxNorm: 166310 1/2 Tablet(s) PO QPM 02/13/2013 02/07/2014 Inactive also 180 q am Levoxyl 75 mcg tablet RxNorm: 126692 1 Tablet(s) PO 01/16/2013 04/23/2013 Inactive Coumadin 2 mg tablet RxNorm: 594317 6mg daily except 3mg on wed and mon Tablet(s) PO 01/15/2013 05/28/2013 Inactive 5 mg daily Coumadin 2 mg tablet RxNorm: 570113 6mg daily Tablet(s) PO 12/21/2012 01/14/2013 Inactive 5 mg daily silver sulfadiazine 1 % Topical Cream RxNorm: 143422 TOP apply to affected area with each dressing change 12/19/2012 12/25/2013 Inactive cephalexin 500 mg tablet RxNorm: 954804 1 Tablet(s) PO TID 12/11/2012 12/17/2012 Inactive digoxin 125 mcg tablet RxNorm: 743296 1 Tablet(s) PO daily 10/30/2012 02/12/2013 Inactive digoxin 125 mcg tablet RxNorm: 889344 2 tab tue thurs one other days Tablet(s) PO daily 10/23/2012 10/29/2012 Inactive lisinopril 10 mg tablet RxNorm: 672608 1 Tablet(s) PO daily 10/17/2012 08/14/2013 Inactive Cipro 500 mg tablet RxNorm: 098953 1 Tablet(s) PO BID 09/13/2012 09/19/2012 Inactive Coumadin 1 mg tablet RxNorm: 202052 1 Tablet(s) PO daily 09/03/2012 09/02/2012 Inactive Coumadin 1 mg tablet RxNorm: 479435 1 Tablet(s) PO daily 09/03/2012 12/21/2012 Inactive Coumadin 2 mg tablet RxNorm: 742124 Tablet(s) PO 07/25/2012 12/20/2012 Inactive 5 mg daily digoxin 125 mcg tablet RxNorm: 513495 1 Tablet(s) PO daily 06/28/2012 10/22/2012 Inactive Coumadin 2 mg tablet RxNorm: 346445 Tablet(s) PO 06/27/2012 07/24/2012 Inactive 5mg daily except 4mg on monday Coumadin 2 mg tablet RxNorm: 709152 Tablet(s) PO 06/19/2012 06/26/2012 Inactive 5mg tue wed thur sat sun4mg mon frid(has 2mg and 1 mg tab) digoxin 125 mcg tablet RxNorm: 404752 1 Tablet(s) PO daily 05/29/2012 06/27/2012 Inactive Coumadin 2 mg tablet RxNorm: 909116 Tablet(s) PO 05/15/2012 06/18/2012 Inactive 5mg tue thur sat sun4mg mon frid(has 2mg and 1 mg tab) Coumadin 2 mg tablet RxNorm: 783696 Tablet(s) PO 04/25/2012 05/14/2012 Inactive 5mg tue thru sat4mg mon frid sun(has 2mg and 1 mg tab) Metanx 3 mg-35 mg-2 mg tablet RxNorm: 1 Tablet(s) PO BID 04/18/2012 12/24/2013 Inactive dicyclomine 20 mg tablet RxNorm: 865498 1 Tablet(s) PO 04/18/2012 06/23/2013 Inactive one ac dinner and up to tid prn digoxin 125 mcg tablet RxNorm: 416002 Tablet(s) PO daily except .25 on Tuesdays and 04/09/2012 05/28/2012 Inactive omeprazole 20 mg tablet,delayed release RxNorm: 517053 1 Tablet(s) PO BID 04/09/2012 04/03/2013 Inactive digoxin 125 mcg tablet RxNorm: 105684 1 Tablet(s) PO UD daily except none on Tuesdays and 03/13/2012 04/08/2012 Inactive Premarin 0.625 mg/gram Vaginal Cream RxNorm: 594385 1 Application VAG 1 applicator per vagina 3 times per week 02/20/2012 02/13/2013 Inactive omeprazole 20 mg tablet,delayed release RxNorm: 912763 1 Tablet(s) PO BID 02/13/2012 04/08/2012 Inactive Vesicare 10 mg tablet RxNorm: 539401 1 Tablet(s) PO QHS 02/13/2012 02/06/2013 Inactive Diflucan 150 mg tablet RxNorm: 383350 1 Tablet(s) PO daily 02/13/2012 02/19/2012 Inactive omeprazole 20 mg tablet,delayed release RxNorm: 874926 1 Tablet(s) PO BID 01/06/2012 02/12/2012 Inactive Calcium 600 + D(3) 600 mg (1,500)-200 unit Tab RxNorm: 470527 2 Tablet(s) PO BID 01/06/2012 08/31/2015 Inactive diltiazem 90 mg tablet RxNorm: 796239 1/2 Tablet(s) PO QPM 12/26/2011 02/12/2013 Inactive also 180 q am diltiazem ER 180 mg Cap RxNorm: 490459 1 Capsule(s) PO QAM 12/26/2011 04/08/2012 Inactive 45mg q hs Flagyl 500 mg Tab RxNorm: 919892 1 Tablet(s) PO BID 12/14/2011 12/20/2011 Inactive dicyclomine 10 mg Cap RxNorm: 846040 1 Capsule(s) PO AC & HS 12/01/2011 12/25/2011 Inactive Levaquin 500 mg Tab RxNorm: 686861 1 Tablet(s) PO daily 11/23/2011 11/29/2011 Inactive Rocephin 500 mg Solution for Injection RxNorm: 9123750 Inj 11/23/2011 11/23/2011 Inactive acyclovir 400 mg Tab RxNorm: 541417 1 Tablet(s) PO QID 11/10/2011 11/19/2011 Inactive acyclovir 400 mg Tab RxNorm: 010845 1 Tablet(s) PO QID 11/10/2011 11/09/2011 Inactive lisinopril 20 mg Tab RxNorm: 275125 1 Tablet(s) PO daily 10/03/2011 11/27/2011 Inactive lisinopril 20 mg Tab RxNorm: 461455 1 Tablet(s) PO daily 08/08/2011 10/02/2011 Inactive Reclast 5 mg/100 mL IV RxNorm: 018718 Milliliter(s) IV Yearly 06/08/2011 01/16/[address] Hansen managebrad Rocephin 500 mg Solution for Injection RxNorm: 4087163 1 Milliliter(s) Inj 03/04/2011 08/08/2011 Inactive Ceftin 500 mg Tab RxNorm: 211622 1 Tablet(s) PO BID 03/04/2011 08/08/2011 Inactive Zyrtec 10 mg tablet RxNorm: 8305047 1 Tablet(s) PO daily No Start Date Active Vitamin D3 1,000 unit tablet RxNorm: 929724 2 Tablet(s) PO daily No Start Date Active duloxetine 20 mg capsule,delayed release RxNorm: 503415 1 Capsule(s) PO daily No Start Date Active Stool Softener 100 mg tablet RxNorm: 2149424 2 Tablet(s) PO QHS No Start Date Active Beano tablet RxNorm: 2-3 Tablet(s) PO as needed No Start Date Active ipratropium-albuterol 0.5 mg-3 mg(2.5 mg base)/3 mL nebulization soln RxNorm: 9030360 1 INH TID No Start Date Active Probiotic Pearls 15 mg (1 billion cell) capsule,delayed release RxNorm: 1 Capsule(s) PO daily No Start Date Active loperamide 2 mg tablet RxNorm: 836523 1 Tablet(s) PO as needed diarrhea No Start Date Active Miralax 17 gram oral powder packet RxNorm: 996665 1/2 packet PO QHS No Start Date Active multivitamin Tab RxNorm: 1 Tablet(s) PO daily No Start Date Active Tylenol Extra Strength 500 mg tablet RxNorm: 196094 2 Tablet(s) PO as needed No Start Date Active magnesium 500 mg tablet RxNorm: 1 Tablet(s) PO daily No Start Date Active Combigan 0.2 %-0.5 % eye drops RxNorm: 930629 1 Drop(s) OPH BID No Start Date Active 1 drop twice daily left eye [place] Allergy 180 mg tablet RxNorm: 959153 1 Tablet(s) PO daily No Start Date Active simethicone 125 mg tablet RxNorm: 355231 1 Tablet(s) PO as needed No Start Date Active potassium chloride 20 mEq oral packet RxNorm: 8076892 1 Tablet(s) PO daily No Start Date Active lorazepam 0.5 mg tablet RxNorm: 1/2 Tablet(s) PO QHS No Start Date Active 1/2 tab daily and every 6 hours prn anxiety ProAir RespiClick 90 mcg/actuation breath activated RxNorm: 5583225 2 INH as needed No Start Date Active levothyroxine 75 mcg tablet RxNorm: 398736 1 Tablet(s) PO daily No Start Date Active Lotemax 0.5 % eye drops,suspension RxNorm: 341163 1 Drop(s) OPH right eye BID No Start Date Active sodium chloride 1 gram tablet RxNorm: 442221 1 Tablet(s) PO daily No Start Date Active Levoxyl 50 mcg tablet RxNorm: 023430 1 Tablet(s) PO daily No Start Date 01/15/2013 Inactive lisinopril-hydrochlorothiazide 20 mg-25 mg Tab RxNorm: 135099 1 Tablet(s) PO daily No Start Date 08/07/2011 Inactive Metanx 3 mg-35 mg-2 mg tablet RxNorm: 1 Tablet(s) PO daily No Start Date 04/17/2012 Inactive diltiazem CD 120 mg capsule,extended release 24 hr RxNorm: 804304 1 Capsule(s) PO daily No Start Date 09/28/2015 Inactive lisinopril 20 mg tablet RxNorm: 983558 Tablet(s) PO No Start Date Active Lumigan 0.01 % Eye Drops RxNorm: 4141670 1 Drop(s) OPH daily Left eye No Start Date 12/10/2013 Inactive prednisolone acetate 1 % Eye Drops, Susp RxNorm: 2059265 1 Drop(s) OPH BID 1 drop right eye am and hs No Start Date 11/02/2015 Inactive Eliquis 5 mg tablet RxNorm: 1271725 1 Tablet(s) PO BID No Start Date 06/08/2016 Inactive potassium gluconate (bulk) Misc RxNorm: Miscellaneous No Start Date 12/25/2011 Inactive Calcium 600 + D(3) 600 mg (1,500)-200 unit Tab RxNorm: 464303 3 Tablet(s) PO daily No Start Date 2012 Inactive Zyrtec 10 mg tablet RxNorm: 1373068 1 Tablet(s) PO daily No Start Date 08/02/2016 Inactive Synthroid 100 mcg tablet RxNorm: 787031 1 Tablet(s) PO daily No Start Date 09/04/2013 Inactive metoprolol succinate ER 50 mg tablet,extended release 24 hr RxNorm: 603684 1 Tablet(s) PO daily No Start Date 03/23/2016 Inactive Carafate 100 mg/mL oral suspension RxNorm: 829024 2 Teaspoon(s) PO as needed with reflux symptoms No Start Date 06/03/2018 Inactive Metanx 3 mg-35 mg-2 mg tablet RxNorm: 1 Tablet(s) PO daily 2pm No Start Date 11/02/2015 Inactive Lexapro 5 mg tablet RxNorm: 414856 1 Tablet(s) PO daily No Start Date 08/18/2015 Inactive Iron (dried) oral RxNorm: 81545 oral No Start Date 11/02/2015 Inactive timolol 0.5 % Eye Drops RxNorm: 314087 1 Drop(s) OPH daily left eye No Start Date 12/18/2013 Inactive multivitamin Cap RxNorm: 1 Capsule(s) PO daily No Start Date 12/25/2011 Inactive dicyclomine 10 mg Cap RxNorm: 206660 2 Capsule(s) PO daily No Start Date 11/30/2011 Inactive diltiazem 30 mg tablet RxNorm: 339856 1 Tablet(s) PO Q6 No Start Date 01/02/2019 Inactive silver sulfadiazine 1 % Topical Cream RxNorm: 979311 TOP apply to affected area with each dressing change No Start Date 12/18/2012 Inactive magnesium oxide 400 mg Tab RxNorm: 805379 1 Tablet(s) PO daily No Start Date 11/02/2015 Inactive Pradaxa 75 mg Cap RxNorm: 5740616 1 Capsule(s) PO BID No Start Date 04/09/2012 Inactive magnesium oxide 400 mg Tab RxNorm: 729469 2 Tablet(s) PO daily magnesium plus zinc No Start Date 12/25/2011 Inactive biotin 1000 mg RxNorm: 1 PO daily No Start Date 12/25/2011 Inactive Synthroid 50 mcg Tab RxNorm: 282367 Tablet(s) PO No Start Date 12/25/2011 Inactive diltiazem ER 180 mg Cap RxNorm: 698047 1 Capsule(s) PO daily No Start Date 12/25/2011 Inactive Lipitor 10 mg tablet RxNorm: 619486 1 Tablet(s) PO daily No Start Date 01/02/2019 Inactive 1 D 3 1000 iu Oral RxNorm: Oral No Start Date 12/25/2011 Inactive Coumadin 2 mg tablet RxNorm: 593701 Tablet(s) PO No Start Date 04/24/2012 Inactive 5mg tue [id number] mon fri sat sun(has 2mg and 1 mg tab) dicyclomine 20 mg tablet RxNorm: 490268 Tablet(s) PO No Start Date 04/17/2012 Inactive one ac dinner and up to tid prn lactobacillus acidophilus tablet RxNorm: 1 Tablet(s) PO daily No Start Date 11/03/2015 Inactive Eliquis 2.5 mg tablet RxNorm: 9060085 1 Tablet(s) PO BID No Start Date 07/25/2017 Inactive Levoxyl 75 mcg Tab RxNorm: 178459 1 Tablet(s) PO daily No Start Date 10/02/2011 Inactive digoxin 125 mcg tablet RxNorm: 331427 1 Tablet(s) PO daily No Start Date 03/12/2012 Inactive pantoprazole 40 mg tablet,delayed release RxNorm: 076291 1 Tablet(s) PO BID No Start Date 01/04/2016 Inactive cyclobenzaprine 5 mg tablet RxNorm: 353553 1/2 Tablet(s) PO Q8 PRN No Start Date 10/24/2016 Inactive diltiazem 90 mg Tab RxNorm: 818814 1/2 Tablet(s) PO QPM No Start Date 12/25/2011 Inactive Mirapex 1 mg Tab RxNorm: 197914 1 Tablet(s) PO QHS No Start Date 12/25/2011 Inactive Xanax 0.25 mg tablet RxNorm: 731919 1 Tablet(s) PO Q6 PRN No Start Date 11/10/2013 Inactive Lexapro 5 mg tablet RxNorm: 847305 1 Tablet(s) PO daily No Start Date 01/02/2019 Inactive Premarin 0.625 mg/gram Vaginal Cream RxNorm: 451719 1 Application VAG 1 applicator per vagina 3 times per week No Start Date 02/19/2012 Inactive Synthroid 75 mcg Tab RxNorm: 618111 1 Tablet(s) PO daily No Start Date 04/17/2012 Inactive lisinopril 40 mg Tab RxNorm: 535621 1 Tablet(s) PO daily No Start Date 12/25/2011 Inactive Glucosamine Chondroitin Complex Advanced [id number]-1.65mg Tab RxNorm: 2 Tablet(s) PO daily No Start Date 08/08/2011 Inactive famotidine 20 mg tablet RxNorm: 646285 1 Tablet(s) PO QAM No Start Date 11/02/2015 Inactive cranberry extract 250 mg Tab RxNorm: 523080 2 Tablet(s) PO daily No Start Date 08/08/2011 Inactive Vitamin D3 1,000 unit capsule RxNorm: 669024 1 Capsule(s) PO daily No Start Date 08/31/2015 Inactive aspirin 81 mg Tab, Delayed Release RxNorm: 093693 1 Tablet(s) PO daily No Start Date 08/31/2015 Inactive diltiazem ER 120 mg capsule,extended release RxNorm: 985791 1 Capsule(s) PO daily patient would like 4 months at a time No Start Date 06/02/2013 Inactive omeprazole 20 mg Tab, Delayed Release RxNorm: 259339 2 Tablet(s) PO QHS No Start Date 2012 Inactive lisinopril 10 mg tablet RxNorm: 974045 1/2 Tablet(s) PO daily No Start Date 10/16/2012 Inactive Pred Forte 1 % Eye Drops RxNorm: 151672 1 Drop(s) OPH daily right eye No Start Date 12/25/2013 Inactive calcium carbonate 400 mg Chewable Tab RxNorm: 081100 1 Tablet(s) PO daily No Start Date 08/08/2011 Inactive Vesicare 10 mg tablet RxNorm: 662913 1 Tablet(s) PO QHS No Start Date 02/12/2012 Inactive Symbicort 160 mcg-4.5 mcg/actuation HFA aerosol inhaler RxNorm: 1086460 2 Puff(s) INH BID No Start Date 12/13/2017 Inactive potassium 99 mg tablet RxNorm: 1 Tablet(s) PO QPM No Start Date 12/25/2013 Inactive timolol 0.25 % Eye Drops RxNorm: 518864 1 Drop(s) OPH daily Left eye No Start Date 04/17/2012 Inactive diltiazem ER 90 mg capsule,extended release 12 hr RxNorm: 882069 1/2 Capsule(s) PO QPM No Start Date 04/28/2014 Inactive cyclobenzaprine 5 mg Tab RxNorm: 908979 1/2-1 Tablet(s) PO Q8 PRN No Start Date 12/25/2011 Inactive 1/2 - 1 tab q 8hrs prn muscle spasms Medication Administered Medication Codes Instructions Start Date Status Influenza Virus Vaccine 0.5 mL RxNorm: 04/23/2013 No longer Active Rocephin 500 mg Solution for Injection RxNorm: 5434563 11/23/2011 No longer Active Immunizations Vaccine Codes [...] hypertension ICD-10: I10 ICD-9: 401.9 01/31/2018 Other nurse ob (current) drug therapy ICD-10: Z79.899 ICD-9: V58.83 [...] hemorrhoids ICD-10: K64.0 ICD-9: 455.6 03/24/2016 Other nurse ob (current) drug therapy ICD-10: Z79.899 ICD-9: V58.69 [...] Item Code Result Date Digoxin Ord9 DIGOXIN 0.5 NG/ML 12/06/2018 Comp Metabolic Lob305 NA 124 mEq/L 12/06/2018 Comp Metabolic Urz840 K 4.7 mEq/L 12/06/2018 Comp Metabolic Ssl630 CL 92 mEq/L 12/06/2018 Comp Metabolic Vnz762 CO2 21.0 mEq/L 12/06/2018 Comp Metabolic Lyn183 ANION GAP 16 12/06/2018 Comp Metabolic Pqz530 GLUCOSE 116 mg/dL 12/06/2018 Comp Metabolic Gvp307 Creat 0.9 mg/dL 12/06/2018 Comp Metabolic Vjb202 eGFR 62 ml/min/1.73m2 12/06/2018 Comp Metabolic Ppv853 BUN 24 mg/dL 12/06/2018 Comp Metabolic Fky542 B/C Ratio 26.1 Ratio 12/06/2018 Comp Metabolic Psu754 CALCIUM 8.5 mg/dL 12/06/2018 Comp Metabolic Zxa298 ALK PHOS 53 U/L 12/06/2018 Comp Metabolic Lnc572 AST(SGOT) 30 U/L 12/06/2018 Comp Metabolic Ncq009 ALT(SGPT) 35 U/L 12/06/2018 Comp Metabolic Rxl578 BILI T 0.7 mg/dL 12/06/2018 Comp Metabolic Krs424 ALBUMIN 3.2 g/dL 12/06/2018 Comp Metabolic Ylz853 TPRO 6.1 g/dL 12/06/2018 Comp Metabolic Dxw753 GLOB 2.9 g/dL 12/06/2018 Comp Metabolic Qvs622 A/G Ratio 1.1 Ratio 12/06/2018 Comp Metabolic Uwz461 Osmo 255 mOsmo 12/06/2018 Cbc With Differential [...] 31.1 pg 12/06/2018 Cbc With Differential Ord2 [place]% 9.1 % 12/06/2018 Cbc With Differential Ord2 [...] 0.51 K/ul 12/06/2018 Cbc With Differential Ord2 [place] ABS# 0.9 K/ul 12/06/2018 Cbc With Differential Ord2 Eos ABS# 0.4 K/ul 12/06/2018 Cbc With Differential Ord2 Baso ABS# 0.0 K/ul 12/06/2018 C RAP A SC [id number] Strep A Negative 11/30/2018 Electrolytes Ord62 NA 132 mEq/L 09/25/2018 Electrolytes Ord62 K 4.1 mEq/L 09/25/2018 Electrolytes Ord62 CL 98 mEq/L 09/25/2018 Electrolytes Ord62 CO2 26.0 mEq/L 09/25/2018 Electrolytes Ord62 ANION GAP 12 09/25/2018 Comp Metabolic Bld551 NA 130 mEq/L 09/12/2018 Comp Metabolic Ivt767 K 4.2 mEq/L 09/12/2018 Comp Metabolic Xmv843 CL 98 mEq/L 09/12/2018 Comp Metabolic Vyc122 CO2 23.0 mEq/L 09/12/2018 Comp Metabolic Mmn750 ANION GAP 13 09/12/2018 Comp Metabolic Xla461 GLUCOSE 129 mg/dL 09/12/2018 Comp Metabolic Eje433 Creat 1.0 mg/dL 09/12/2018 Comp Metabolic Zso249 eGFR 58 ml/min/1.73m2 09/12/2018 Comp Metabolic Mdg560 BUN 28 mg/dL 09/12/2018 Comp Metabolic Jhr572 B/C Ratio 28.9 Ratio 09/12/2018 Comp Metabolic Bim430 CALCIUM 9.1 mg/dL 09/12/2018 Comp Metabolic Bxh400 ALK PHOS 59 U/L 09/12/2018 Comp Metabolic Pfm256 AST(SGOT) 21 U/L 09/12/2018 Comp Metabolic Qcd445 ALT(SGPT) 19 U/L 09/12/2018 Comp Metabolic Uac083 BILI T 0.8 mg/dL 09/12/2018 Comp Metabolic Irn821 ALBUMIN 3.9 g/dL 09/12/2018 Comp Metabolic Ptf701 TPRO 6.5 g/dL 09/12/2018 Comp Metabolic Erh433 GLOB 2.6 g/dL 09/12/2018 Comp Metabolic Htb834 A/G Ratio 1.5 Ratio 09/12/2018 Comp Metabolic Rzy986 Osmo 268 mOsmo 09/12/2018 Tsh Ord6 TSH (3rd IS) 12.84 uIU/mL 09/12/2018 Influenza A+B Hpl205 Influ A+B Negative 09/12/2018 Cbc With Differential [...] 12.3 % 09/12/2018 Cbc With Differential Ord2 [place]% 12.0 % 09/12/2018 Cbc With Differential Ord2 [...] 0.85 K/ul 09/12/2018 Cbc With Differential Ord2 [place] ABS# 0.8 K/ul 09/12/2018 Cbc With Differential Ord2 Eos ABS# 0.1 K/ul 09/12/2018 Cbc With Differential Ord2 Baso ABS# 0.0 K/ul 09/12/2018 Free T4 Gfg622 FREE T4 1.10 ng/dL 09/12/2018 Free T4 Ega829 FREE T4 1.19 ng/dL 05/08/2018 Digoxin Ord9 DIGOXIN 0.6 NG/ML 05/08/2018 Tsh Ord6 TSH (3rd IS) 10.58 uIU/mL 05/08/2018 Tsh Ord6 TSH (3rd IS) 1.07 uIU/mL 01/31/2018 Free T4 Irf479 FREE T4 1.63 ng/dL 01/31/2018 Digoxin Ord9 DIGOXIN 0.8 NG/ML 01/31/2018 C RAP A SC [id number] Strep A Negative 11/21/2016 Thyroid Antibodies 226700 THYROGLOBULIN ANTIBODY . 11/04/2016 Thyroid Antibodies 367792 THYROGLOBULIN ANTIBODY 919 IU/mL 11/04/2016 Thyroid Antibodies 813570 THYROID PEROXIDASE (TPO) AB . 11/04/2016 Thyroid Antibodies 336164 THYROID PEROXIDASE (TPO) AB 10 IU/mL 11/04/2016 Total T3 Ord42 TT3 0.64 ng/ml 11/03/2016 Free T4 Bkb614 FREE T4 1.39 ng/dL 11/02/2016 Tsh Ord6 [...] Differential Ord2 RDW 13.8 % 05/26/2015 Pt Nyo0424 PT 25.0 seconds 05/26/2015 Pt Smf2290 INR 2.4 05/26/2015 Pt Zru7896 Low Intensity - 1.5-2.0 05/26/2015 Pt Smf0185 Mod intensity - 2.0-3.0 05/26/2015 Pt Doh5327 Hi intensity - 3.0-4.0 05/26/2015 Uric Acid [...] Digoxin Ord9 DIGOXIN 0.6 NG/ML 05/06/2015 Pt Fjj6268 PT 23.3 seconds 05/06/2015 Pt Win5339 INR 2.1 05/06/2015 Pt Iuo8278 Low Intensity - 1.5-2.0 05/06/2015 Pt Vja9151 Mod intensity - 2.0-3.0 05/06/2015 Pt Fzk0360 Hi intensity - 3.0-4.0 05/06/2015 Free T4 Ghn456 FREE T4 1.65 ng/dL 05/06/2015 Comp Metabolic Tbs517 NA 132 mEq/L 05/06/2015 Comp Metabolic Ayh613 K 4.1 mEq/L 05/06/2015 Comp Metabolic Bng390 CL 98 mEq/L 05/06/2015 Comp Metabolic Fli873 CO2 27.0 mEq/L 05/06/2015 Comp Metabolic Irw708 ANION GAP 11 05/06/2015 Comp Metabolic Luu765 GLUCOSE 71 mg/dL 05/06/2015 Comp Metabolic Fxv298 Creat 0.7 mg/dL 05/06/2015 Comp Metabolic Pgh531 eGFR 82 ml/min/1.73m2 05/06/2015 Comp Metabolic Ncy037 BUN 16 mg/dL 05/06/2015 Comp Metabolic Nnd652 B/C Ratio 22.2 Ratio 05/06/2015 Comp Metabolic Uhm169 CALCIUM 9.4 mg/dL 05/06/2015 Comp Metabolic Ara750 ALK PHOS 60 U/L 05/06/2015 Comp Metabolic Uig311 AST(SGOT) 22 U/L 05/06/2015 Comp Metabolic Ywp639 ALT(SGPT) 24 U/L 05/06/2015 Comp Metabolic Nsc809 BILI T 0.8 mg/dL 05/06/2015 Comp Metabolic Aud082 ALBUMIN 4.3 g/dL 05/06/2015 Comp Metabolic Maz256 TPRO 7.6 g/dL 05/06/2015 Comp Metabolic Bwh817 GLOB 3.3 g/dL 05/06/2015 Comp Metabolic Dzm826 A/G Ratio 1.3 Ratio 05/06/2015 Comp Metabolic Wsb937 Osmo 264 mOsmo 05/06/2015 DIGOXIN 4967000 DIGOXIN 1.1 NG/ML 05/15/2013 PT/MC 6810873 PRO TIME 21.7 SEC 05/15/2013 PT/MC 8896112 INR MCMC 2.0 05/15/2013 CHEM 14 6694955 AST 24 U/L 04/23/2013 CHEM 14 2061979 ALT 31 IU/L 04/23/2013 CHEM 14 3991500 BUN 13 MG/DL 04/23/2013 CHEM 14 9933988 ALBUMIN 4.1 GM/DL 04/23/2013 CHEM 14 0261682 CHLORIDE 103 MMOL/L 04/23/2013 CHEM 14 4757910 BILI TOT 0.5 MG/DL 04/23/2013 CHEM 14 5673643 ALK PHOS 44 U/L 04/23/2013 CHEM 14 8984088 SODIUM 137 MMOL/L 04/23/2013 CHEM 14 9286571 CREATININE 0.61 MG/DL 04/23/2013 CHEM 14 7024783 CALCIUM 9.5 MG/DL 04/23/2013 CHEM 14 7079982 POTASSIUM 4.0 MMOL/L 04/23/2013 CHEM 14 8744840 PROT TOT 6.6 GM/DL 04/23/2013 CHEM 14 5325779 GLUCOSE 99 MG/DL 04/23/2013 CHEM 14 0274700 BICARB 27 MMOL/L 04/23/2013 CHEM 14 1701376 ANION GAP 7 MEQ/L 04/23/2013 GFR CALC 8347009 GFR AA >60 ML/MIN 04/23/2013 GFR CALC 7933502 GFR NON-AA >60 ML/MIN 04/23/2013 TSH 3357848 TSH 4.204 uIU/ML 04/23/2013 CBC 9285010 WBC 6.7 10e9/L 04/23/2013 CBC 5082413 RBC 4.19 10e12/L 04/23/2013 CBC 0569067 HGB 13.2 g/dL 04/23/2013 CBC 8767096 HCT DET 39.2 % 04/23/2013 CBC 5989935 MCV 93.6 fL 04/23/2013 CBC 6255738 MCH 31.5 pg 04/23/2013 CBC 3719828 MCHC 33.7 g/dL 04/23/2013 CBC 1981656 PLT 202 10e9/L 04/23/2013 CBC 8750724 MPV 11.4 fL 04/23/2013 CBC 6228361 YANIRA % 70.5 % 04/23/2013 CBC 2079852 LY % 19.6 % 04/23/2013 CBC 4854454 MON % 8.2 % 04/23/2013 CBC 7797807 EOS % 1.6 % 04/23/2013 CBC 3347281 BASO % 0.1 % 04/23/2013 CBC 8548062 RDW 13.7 % 04/23/2013 CBC 6026437 ABS YANIRA 4.72 10e9/L 04/23/2013 CBC 7200139 ABS LYMPH 1.31 10e9/L 04/23/2013 CBC 6027312 ABS MONO 0.55 10e9/L 04/23/2013 CBC 2222345 ABS EOS 0.11 10e9/L 04/23/2013 CBC 9040626 ABS BASO 0.01 10e9/L 04/23/2013 CBC 5080363 RDW-SD 45.7 fL 04/23/2013 PT/MC 6790637 PRO TIME 13.4 SEC 12/17/2012 PT/MC 4864328 INR MCMC 1.0 12/17/2012 PT/MC 0652894 PRO TIME 16.6 SEC 12/14/2012 PT/MC 7353781 INR MCMC 1.4 12/14/2012 PT/MC 8075493 PRO TIME 27.2 SEC 12/11/2012 PT/MC 6946180 INR MCMC 2.6 12/11/2012 DIGOXIN 0521907 DIGOXIN 2.1 NG/ML 03/08/2012 GFR CALC 4633729 GFR AA >60 ML/MIN 03/08/2012 GFR CALC 4912846 GFR NON-AA >60 ML/MIN 03/08/2012 CHEM 14 20280112 AST 16 U/L 03/08/2012 CHEM 14 20280112 ALT 14 IU/L 03/08/2012 CHEM 14 20280112 BUN 10 MG/DL 03/08/2012 CHEM 14 20280112 ALBUMIN 4.2 GM/DL 03/08/2012 CHEM 14 20280112 CHLORIDE 100 MMOL/L 03/08/2012 CHEM 14 20280112 BILI TOT 0.5 MG/DL 03/08/2012 CHEM 14 20280112 ALK PHOS 59 U/L 03/08/2012 CHEM 14 5004260 SODIUM 136 MMOL/L 03/08/2012 CHEM 14 2198668 CREATININE 0.65 MG/DL 03/08/2012 CHEM 14 2061923 CALCIUM 9.4 MG/DL 03/08/2012 CHEM 14 3077223 POTASSIUM 3.9 MMOL/L 03/08/2012 CHEM 14 3519995 PROT TOT 6.7 GM/DL 03/08/2012 CHEM 14 5042951 GLUCOSE 90 MG/DL 03/08/2012 CHEM 14 0678737 BICARB 30 MMOL/L 03/08/2012 CHEM 14 3346955 ANION GAP 6 MEQ/L 03/08/2012 CHEM 14 7848468 AST 16 U/L 11/23/2011 CHEM 14 6365375 ALT 14 IU/L 11/23/2011 CHEM 14 6564262 BUN 11 MG/DL 11/23/2011 CHEM 14 9515839 ALBUMIN 4.1 GM/DL 11/23/2011 CHEM 14 2503330 CHLORIDE 100 MMOL/L 11/23/2011 CHEM 14 8070370 BILI TOT 0.5 MG/DL 11/23/2011 CHEM 14 3177392 ALK PHOS 50 U/L 11/23/2011 CHEM 14 9531126 SODIUM 135 MMOL/L 11/23/2011 CHEM 14 2380625 CREATININE 0.57 MG/DL 11/23/2011 CHEM 14 9749699 CALCIUM 9.1 MG/DL 11/23/2011 CHEM 14 5163579 POTASSIUM 4.5 MMOL/L 11/23/2011 CHEM 14 5383902 PROT TOT 6.5 GM/DL 11/23/2011 CHEM 14 2261768 GLUCOSE 89 MG/DL 11/23/2011 CHEM 14 4922223 BICARB 28 MMOL/L 11/23/2011 CHEM 14 0284323 ANION GAP 7 MEQ/L 11/23/2011 GFR CALC 5280472 GFR AA >60 ML/MIN 11/23/2011 GFR CALC 5081865 GFR NON-AA >60 ML/MIN 11/23/2011 CBC 6358381 WBC 5.1 10e9/L 11/23/2011 CBC 3850625 RBC 4.06 10e12/L 11/23/2011 CBC 9336333 HGB 12.5 g/dL 11/23/2011 CBC 7673313 HCT DET 37.3 % 11/23/2011 CBC 3713452 MCV 91.9 fL 11/23/2011 CBC 0324097 MCH 30.8 pg 11/23/2011 CBC 1046921 MCHC 33.5 g/dL 11/23/2011 CBC 7238591 PLT 222 10e9/L 11/23/2011 CBC 8192376 MPV 10.8 fL 11/23/2011 CBC 0908235 YANIRA % 64.2 % 11/23/2011 CBC 6842665 LY % 22.3 % 11/23/2011 CBC 8106967 MON % 11.3 % 11/23/2011 CBC 4811856 EOS % 1.8 % 11/23/2011 CBC 2011582 BASO % 0.4 % 11/23/2011 CBC 1211674 RDW 13.6 % 11/23/2011 CBC 6512513 ABS YANIRA 3.27 10e9/L 11/23/2011 CBC 1114160 ABS LYMPH 1.14 10e9/L 11/23/2011 CBC 4393422 ABS MONO 0.58 10e9/L 11/23/2011 CBC 9490433 ABS EOS 0.09 10e9/L 11/23/2011 CBC 3705720 ABS BASO 0.02 10e9/L 11/23/2011 CBC 1711266 RDW-SD 44.5 fL 11/23/2011 UA 40366 Specific [place] 1.005 03/04/2011 UA 20779 PH 6 03/04/2011 UA 54502 GLUCOSE N 03/04/2011 UA 13277 Protein N 03/04/2011 UA 68685 Blood ++ 03/04/2011 UA 50451 Bilirubin N 03/04/2011 UA 20998 Ketones N 03/04/2011 UA 79538 Urobilinogen N 03/04/2011 UA 45579 Nitrite N 03/04/2011 UA 96803 Leukocytes N 03/04/2011 URINALYSIS NONAUTO W/O SCOPE 56745 Specific [place] 1.010 DateTime(Free Text in Aprima) URINALYSIS NONAUTO W/O SCOPE 88213 PH 6.5 DateTime(Free Text in Aprima) URINALYSIS NONAUTO W/O SCOPE 75116 GLUCOSE neg DateTime(Free Text in Apr[employer]) URINALYSIS NONAUTO W/O SCOPE 32326 Protein neg DateTime(Free Text in Apr[employer]) URINALYSIS NONAUTO W/O SCOPE 85343 Blood 3+ DateTime(Free Text in Apr[employer]) URINALYSIS NONAUTO W/O SCOPE 67694 Bilirubin neg DateTime(Free Text in Apr[employer]) URINALYSIS NONAUTO W/O SCOPE 42880 Ketones neg DateTime(Free Text in Apr[employer]) URINALYSIS NONAUTO W/O SCOPE 73626 Urobilinogen neg DateTime(Free Text in Apr[employer]) URINALYSIS NONAUTO W/O SCOPE 75422 Nitrite neg DateTime(Free Text in Apr[employer]) URINALYSIS NONAUTO W/O SCOPE 88567 Leukocytes neg DateTime(Free Text in Apr[employer]) URINALYSIS NONAUTO W/O SCOPE 60335 Specific [place] 1.010 DateTime(Free Text in Apr[employer]) URINALYSIS NONAUTO W/O SCOPE 32896 PH 5 DateTime(Free Text in Apr[employer]) URINALYSIS NONAUTO W/O SCOPE 00533 GLUCOSE neg DateTime(Free Text in Apr[employer]) URINALYSIS NONAUTO W/O SCOPE 67568 Protein neg DateTime(Free Text in Apr[employer]) URINALYSIS NONAUTO W/O SCOPE 46917 Blood 3+ DateTime(Free Text in Apr[employer]) URINALYSIS NONAUTO W/O SCOPE 17409 Bilirubin neg DateTime(Free Text in Apr[employer]) URINALYSIS NONAUTO W/O SCOPE 14668 Ketones neg DateTime(Free Text in Apr[employer]) URINALYSIS NONAUTO W/O SCOPE 44474 Urobilinogen neg DateTime(Free Text in Apr[employer]) URINALYSIS NONAUTO W/O SCOPE 43837 Nitrite neg DateTime(Free Text in Apr[employer]) URINALYSIS NONAUTO W/O SCOPE 35635 Leukocytes neg DateTime(Free Text in Apr[employer]) URINALYSIS NONAUTO W/O SCOPE 48764 Specific [place] 1.005 DateTime(Free Text in Apr[employer]) URINALYSIS NONAUTO W/O SCOPE 62544 PH 8.5 DateTime(Free Text in Apr[employer]) URINALYSIS NONAUTO W/O SCOPE 63370 GLUCOSE neg DateTime(Free Text in Apr[employer]) URINALYSIS NONAUTO W/O SCOPE 22955 Protein neg DateTime(Free Text in Apr[employer]) URINALYSIS NONAUTO W/O SCOPE 77949 Blood 1+ DateTime(Free Text in Apr[employer]) URINALYSIS NONAUTO W/O SCOPE 34339 Bilirubin neg DateTime(Free Text in Apr[employer]) URINALYSIS NONAUTO W/O SCOPE 39588 Ketones neg DateTime(Free Text in Apr[employer]) URINALYSIS NONAUTO W/O SCOPE 07055 Urobilinogen neg DateTime(Free Text in Apr[employer]) URINALYSIS NONAUTO W/O SCOPE 70137 Nitrite neg DateTime(Free Text in Apr[employer]) URINALYSIS NONAUTO W/O SCOPE 26837 Leukocytes neg DateTime(Free Text in Apr[employer]) URINALYSIS NONAUTO W/O SCOPE 76255 Specific [place] 1.005 DateTime(Free Text in Aprima) URINALYSIS NONAUTO W/O SCOPE 02931 PH 7 DateTime(Free Text in Aprima) URINALYSIS NONAUTO W/O SCOPE 97489 GLUCOSE neg DateTime(Free Text in Apr[employer]) URINALYSIS NONAUTO W/O SCOPE 15244 Protein neg DateTime(Free Text in Apr[employer]) URINALYSIS NONAUTO W/O SCOPE 79548 Blood large DateTime(Free Text in Apr[employer]) URINALYSIS NONAUTO W/O SCOPE 78907 Bilirubin neg DateTime(Free Text in Apr[employer]) URINALYSIS NONAUTO W/O SCOPE 36751 Ketones neg DateTime(Free Text in Apr[employer]) URINALYSIS NONAUTO W/O SCOPE 65825 Urobilinogen 0.2 DateTime(Free Text in Apr[employer]) URINALYSIS NONAUTO W/O SCOPE 10408 Nitrite neg DateTime(Free Text in Apr[employer]) URINALYSIS NONAUTO W/O SCOPE 03313 Leukocytes neg DateTime(Free Text in Apr[employer]) URINALYSIS NONAUTO W/O SCOPE 22203 Specific [place] 1.005 DateTime(Free Text in Aprima) URINALYSIS NONAUTO W/O SCOPE 99923 PH 7.5 DateTime(Free Text in Aprima) URINALYSIS NONAUTO W/O SCOPE 78254 GLUCOSE DateTime(Free Text in Apr[employer]) URINALYSIS NONAUTO W/O SCOPE 81681 Protein trace DateTime(Free Text in Apr[employer]) URINALYSIS NONAUTO W/O SCOPE 22918 Blood 4+ DateTime(Free Text in Apr[employer]) URINALYSIS NONAUTO W/O SCOPE 98986 Bilirubin DateTime(Free Text in Apr[employer]) URINALYSIS NONAUTO W/O SCOPE 61458 Ketones DateTime(Free Text in Apr[employer]) URINALYSIS NONAUTO W/O SCOPE 06578 Urobilinogen DateTime(Free Text in ) URINALYSIS NONAUTO W/O SCOPE 94082 Nitrite DateTime(Free Text in Apr) URINALYSIS NONAUTO W/O SCOPE 26197 Leukocytes trace DateTime(Free Text in ) Review [...] age 0107/26/2018 None Full Exam - General 1995 Eyes conjunctiva/eyelids Cornea: corneal scar 07/26/2018 None [...] clear 12/14/2017 None Full Exam - General 1995 Ears/Nose/Throat otoscopic exam Overall: tympanic membranes clear [...] FLU VACC PRSV FREE INC ANTIG CPT-4: 20037 03/27/2017 PPPS, SUBSEQ VISIT CPT- 4: G0439 01/23/2017 URINALYSIS NONAUTO W/O SCOPE CPT-4: 28958 05/17/2016 ADMIN INFLUENZA VIRUS VAC CPT-4: G0008 03/24/2016 FLU VACC PRSV FREE INC ANTIG CPT-4: 19511 03/24/2016 ADMIN PNEUMOCOCCAL VACCINE SNOMED CT: 51755325 CPT-4: G0009 05/13/2015 PNEUMOCOCCAL VACC [address]: 09171297 CPT-4: 73974 05/13/2015 Pneumococcal Polysaccharide Vaccine, 23-Valent, Ad Assigned to/Mela Bledsoe CPT-4: [id number] 07/11/2014 ADMIN PNEUMOCOCCAL VACCINE SNOMED CT: 16558860 CPT-4: G0009 07/11/2014 URINALYSIS NONAUTO W/O SCOPE CPT-4: 76036 05/14/2014 URINALYSIS NONAUTO W/O SCOPE CPT-4: 49368 05/06/2014 URINALYSIS NONAUTO W/O SCOPE CPT-4: 61526 04/29/2014 ADMIN INFLUENZA VIRUS VAC CPT-4: G0008 03/20/2014 FLU VAC NO PRSV 4 SCOTT 3 YRS+ Assigned to/Mela Bledsoe CPT-4: [id number] 03/20/2014 URINALYSIS NONAUTO W/O SCOPE CPT-4: 95352 07/29/2013 URINALYSIS NONAUTO W/O SCOPE CPT-4: 32606 07/01/2013 URINALYSIS NONAUTO W/O SCOPE CPT-4: 46867 06/20/2013 ROUTINE VENIPUNCTURE CPT- 4: 99124 05/15/2013 ROUTINE VENIPUNCTURE CPT- 4: 29515 04/23/2013 ADMIN INFLUENZA VIRUS VAC CPT-4: G0008 04/23/2013 FLULAVAL VACC, 3 YRS & >, IM CPT-4: Q2036 04/23/2013 ROUTINE VENIPUNCTURE CPT- 4: 40302 12/17/2012 ROUTINE VENIPUNCTURE CPT- 4: 64842 12/14/2012 ROUTINE VENIPUNCTURE CPT- 4: 03317 12/11/2012 PRESCRIP TRANSMIT VIA ERX SY CPT-4: G8553 12/11/2012 PRESCRIP TRANSMIT VIA ERX SY CPT-4: G8553 10/30/2012 URINALYSIS NONAUTO W/O SCOPE CPT-4: 46146 09/13/2012 ADMIN INFLUENZA VIRUS VAC CPT-4: G0008 04/18/2012 FLULAVAL VACC, 3 YRS & >, IM CPT-4: Q2036 04/18/2012 URINALYSIS NONAUTO W/O SCOPE CPT-4: 96515 03/13/2012 ROUTINE VENIPUNCTURE CPT- 4: 96406 03/08/2012 URINALYSIS NONAUTO W/O SCOPE CPT-4: 96214 02/13/2012 PRESCRIP TRANSMIT VIA ERX SY CPT-4: G8553 02/13/2012 ROCEPHIN, PER 250 MG CPT- 4: J0696 11/23/2011 ROUTINE VENIPUNCTURE CPT- 4: 73557 11/23/2011 URINALYSIS NONAUTO W/O SCOPE CPT-4: 83735 11/23/2011 PRESCRIP TRANSMIT VIA ERX SY CPT-4: G8553 11/23/2011 REMOVE IMPACTED EAR WAX UNI CPT-4: 96143 10/17/2011 PRESCRIP TRANSMIT VIA ERX SY CPT-4: G8553 10/03/2011 PRESCRIP TRANSMIT VIA ERX SY CPT-4: G8553 08/08/2011 URINALYSIS NONAUTO W/O SCOPE CPT-4: 39288 03/15/2011 URINALYSIS NONAUTO W/O SCOPE CPT-4: 72009 03/04/2011 THER/PROPH/DIAG INJ SC/IM CPT-4: 21978 03/04/2011 ROCEPHIN, PER 250 MG CPT- 4: J0696 03/04/2011 Vital Signs Date Vital 01/03/2019 Blood Pressure 1: 140/68 Code: 8480-6 Heart Rate 1: 80 bpm Height: 5' Weight: 12/10/2018 Blood Pressure 1: 120/56 Code: 8480-6 BMI: 19.9 Code: 04945-1 Heart Rate 1: 103 bpm Height: 5' SpO2: 93% Weight: 102 lbs 12/06/2018 Blood Pressure 1: 118/66 Code: 8480-6 BMI: 20.1 Code: 30647-4 Heart Rate 1: 134 bpm Height: 5' SpO2: 98% Weight: 103 lbs 11/30/2018 Blood Pressure 1: 122/64 Code: 8480-6 Height: Weight: 10/31/2018 Blood Pressure 1: 122/66 Code: 8480-6 BMI: 20.5 Code: 73479-7 Heart Rate 1: 83 bpm Height: 5' SpO2: 99% Weight: 105 lbs 10/09/2018 Blood Pressure 1: 126/60 Code: 8480-6 BMI: 19.9 Code: 03665-1 Heart Rate 1: 66 bpm Height: 5' SpO2: 96% Weight: 102 lbs 09/12/2018 Blood Pressure 1: 156/72 Code: 8480-6 BMI: 19.9 Code: 37588-5 Heart Rate 1: 68 bpm Height: 5' Temperature: 36.6 (C) / 97.8 (F) Weight: 102 lbs 08/14/2018 Blood Pressure 1: 136/68 Code: 8480-6 BMI: 21.1 Code: 87799-1 Heart Rate 1: 92 bpm Height: 5' Weight: 108 lbs 07/26/2018 Blood Pressure 1: 128/76 Code: 8480-6 BMI: 21.1 Code: 18334-4 Heart Rate 1: 88 bpm Height: 5' Weight: 108 lbs 06/04/2018 Blood Pressure 1: 124/72 Code: 8480-6 BMI: 21.3 Code: 31195-0 Heart Rate 1: 98 bpm Height: 5' Weight: 109 lbs 01/31/2018 Blood Pressure 1: 116/68 Code: 8480-6 BMI: 21.1 Code: 63962-0 Heart Rate 1: 89 bpm Height: 5' SpO2: 98% Weight: 108 lbs 01/17/2018 Blood Pressure 1: 134/74 Code: 8480-6 BMI: 21.3 Code: 15876-8 Heart Rate 1: 74 bpm Height: 5' SpO2: 96% Waist Measure (cm): 71 cm Weight: 109 lbs 12/14/2017 Blood Pressure 1: 150/78 Code: 8480-6 BMI: 21.5 Code: 34820-4 Heart Rate 1: 77 bpm Height: 5' SpO2: 98% Temperature: 36.7 (C) / 98.1 (F) Weight: 110 lbs 12/07/2017 Blood Pressure 1: 134/70 Code: 8480-6 Heart Rate 1: 76 bpm Height: SpO2: 98% Temperature: 36.8 (C) / 98.2 (F) Weight: 11/14/2017 Blood Pressure 1: 152/84 Code: 8480-6 BMI: 21.9 Code: 79763-1 Heart Rate 1: 95 bpm Height: 5' SpO2: 93% Weight: 112 lbs 03/27/2017 Blood Pressure 1: 122/70 Code: 8480-6 BMI: 21.3 Code: 20227-3 Heart Rate 1: 75 bpm Height: 5' Weight: 109 lbs 01/23/2017 BMI: 21.5 Code: 34084-3 Height: 5' Weight: 110 lbs 01/19/2017 Blood Pressure 1: 112/60 Code: 8480-6 BMI: 21.5 Code: 87379-6 Heart Rate 1: 54 bpm Height: 5' SpO2: 97% Weight: 110 lbs 11/29/2016 Blood Pressure 1: 126/68 Code: 8480-6 Height: 5' Weight: 11/23/2016 Blood Pressure 1: 130/72 Code: 8480-6 BMI: 21.9 Code: 17297-8 Heart Rate 1: 48 bpm Height: 5' SpO2: 97% Temperature: 36.7 (C) / 98.0 (F) Weight: 112 lbs 11/21/2016 Blood Pressure 1: 134/76 Code: 8480-6 BMI: 21.9 Code: 84611-6 Heart Rate 1: 41 bpm Height: 5' SpO2: 94% Temperature: 36.9 (C) / 98.4 (F) Weight: 112 lbs 11/08/2016 Blood Pressure 1: 126/74 Code: 8480-6 Heart Rate 1: 82 bpm Height: 5' SpO2: 94% Weight: 11/02/2016 Blood Pressure 1: 112/66 Code: 8480-6 Heart Rate 1: 72 bpm Height: 5' SpO2: 95% Weight: 10/27/2016 Blood Pressure 1: 130/64 Code: 8480-6 BMI: 21.7 Code: 51686-1 Heart Rate 1: 81 bpm Height: 5' SpO2: 96% Weight: 111 lbs 08/31/2016 Blood Pressure 1: 132/72 Code: 8480-6 BMI: 22.5 Code: 91183-2 Heart Rate 1: 66 bpm Height: 5' Weight: 115 lbs 07/27/2016 Blood Pressure 1: 166/74 Code: 8480-6 BMI: 23.2 Code: 19474-8 Heart Rate 1: 48 bpm Height: 5' SpO2: 90% Temperature: 36.8 (C) / 98.2 (F) Weight: 119 lbs 06/23/2016 Blood Pressure 1: 128/70 Code: 8480-6 BMI: 22.3 Code: 53255-0 Heart Rate 1: 75 bpm Height: 5' SpO2: 97% Weight: 114 lbs 06/09/2016 BMI: 22.7 Code: 26810-3 Heart Rate 1: 73 bpm Height: 5' SpO2: 97% Weight: 116 lbs 05/25/2016 Blood Pressure 1: 138/62 Code: 8480-6 BMI: 22.8 Code: 63648-3 Heart Rate 1: 76 bpm Height: 5' Weight: 117 lbs 05/17/2016 Blood Pressure 1: 116/70 Code: 8480-6 BMI: 22.8 Code: 41132-3 Heart Rate 1: 74 bpm Height: 5' SpO2: 94% Weight: 117 lbs 03/24/2016 Blood Pressure 1: 154/78 Code: 8480-6 BMI: 22.5 Code: 55435-1 Heart Rate 1: 78 bpm Height: 5' SpO2: 97% Weight: 115 lbs 02/02/2016 Blood Pressure 1: 132/70 Code: 8480-6 BMI: 22.3 Code: 17345-0 Heart Rate 1: 74 bpm Height: 5' SpO2: 94% Weight: 114 lbs 2016 Blood Pressure 1: 120/62 Code: 8480-6 BMI: 22.0 Code: 30153-4 Heart Rate 1: 68 bpm Height: 5' Weight: 112 lbs 8 oz 12/21/2015 Blood Pressure 1: 122/82 Code: 8480-6 BMI: 21.9 Code: 05848-8 Heart Rate 1: 83 bpm Height: 5' SpO2: 93% Temperature: 37.1 (C) / 98.7 (F) Weight: 112 lbs 11/03/2015 Blood Pressure 1: 122/72 Code: 8480-6 BMI: 22.4 Code: 29582-4 Heart Rate 1: 62 bpm Height: 5' Weight: 114 lbs 8 oz 10/19/2015 Blood Pressure 1: 138/62 Code: 8480-6 BMI: 21.1 Code: 73210-2 Heart Rate 1: 79 bpm Height: 5' Weight: 108 lbs 10/13/2015 Blood Pressure 1: 120/62 Code: 8480-6 BMI: 21.0 Code: 88110-5 Heart Rate 1: 76 bpm Height: 5' SpO2: 98% Weight: 108 lbs 09/29/2015 Blood Pressure 1: 130/70 Code: 8480-6 BMI: 20.2 Code: 40697-7 Heart Rate 1: 72 bpm Height: 5' Weight: 104 lbs 09/15/2015 Blood Pressure 1: 128/78 Code: 8480-6 BMI: 19.9 Code: 04036-6 Heart Rate 1: 72 bpm Height: 5' Weight: 102 lbs 8 oz 09/01/2015 Blood Pressure 1: 128/68 Code: 8480-6 BMI: 19.8 Code: 92976-0 Height: 5' Weight: 102 lbs 05/26/2015 Blood Pressure 1: 140/68 Code: 8480-6 BMI: 19.0 Code: 13705-3 Heart Rate 1: 70 bpm Height: 5' Weight: 98 lbs 05/21/2015 Blood Pressure 1: 140/78 Code: 8480-6 BMI: 19.2 Code: 89502-4 Heart Rate 1: 85 bpm Height: 5' SpO2: 95% Weight: 99 lbs 05/07/2015 Blood Pressure 1: 140/82 Code: 8480-6 BMI: 19.0 Code: 87865-8 Heart Rate 1: 76 bpm Height: 5' Weight: 98 lbs 03/23/2015 Blood Pressure 1: 142/60 Code: 8480-6 BMI: 18.6 Code: 82464-2 Heart Rate 1: 52 bpm Height: 5' Weight: 96 lbs 03/09/2015 Blood Pressure 1: 138/74 Code: 8480-6 BMI: 18.8 Code: 27794-7 Heart Rate 1: 60 bpm Height: 5' Weight: 97 lbs 10/30/2014 Blood Pressure 1: 112/82 Code: 8480-6 BMI: 19.0 Code: 29112-4 Heart Rate 1: 64 bpm Height: 5' Weight: 98 lbs 07/11/2014 Blood Pressure 1: 146/70 Code: 8480-6 BMI: 18.8 Code: 11136-9 Heart Rate 1: 68 bpm Height: 5' Weight: 97 lbs 05/20/2014 Blood Pressure 1: 142/76 Code: 8480-6 BMI: 18.6 Code: 73438-5 Heart Rate 1: 78 bpm Height: 5' Weight: 96 lbs 04/29/2014 Blood Pressure 1: 138/62 Code: 8480-6 BMI: 18.3 Code: 70931-8 Heart Rate 1: 80 bpm Height: 5' Weight: 94 lbs 8 oz 03/20/2014 Blood Pressure 1: 142/68 Code: 8480-6 BMI: 18.6 Code: 46389-8 Heart Rate 1: 96 bpm Height: 5' Weight: 96 lbs 03/05/2014 Blood Pressure 1: 122/72 Code: 8480-6 BMI: 18.8 Code: 18165-1 Heart Rate 1: 82 bpm Height: 5' SpO2: 97% Weight: 97 lbs 01/29/2014 Blood Pressure 1: 124/78 Code: 8480-6 BMI: 18.8 Code: 99665-2 Heart Rate 1: 60 bpm Height: 5' Weight: 97 lbs 01/14/2014 Blood Pressure 1: 120/58 Code: 8480-6 BMI: 19.2 Code: 82649-9 Heart Rate 1: 56 bpm Height: 5' Temperature: 36.9 (C) / 98.4 (F) Weight: 99 lbs 12/25/2013 Blood Pressure 1: 118/78 Code: 8480-6 BMI: 19.2 Code: 95438-1 Heart Rate 1: 68 bpm Height: 5' Weight: 99 lbs 11/27/2013 Blood Pressure 1: 102/68 Code: 8480-6 BMI: 19.4 Code: 91126-3 Heart Rate 1: 56 bpm Height: 5' Weight: 100 lbs 09/12/2013 Blood Pressure 1: 142/62 Code: 8480-6 BMI: 19.7 Code: 79861-1 Heart Rate 1: 72 bpm Height: 5'1" Weight: 104 lbs 08/15/2013 Blood Pressure 1: 152/92 Code: 8480-6 Heart Rate 1: 96 bpm Weight: 102 lbs 08/01/2013 Blood Pressure 1: 122/68 Code: 8480-6 BMI: 19.1 Code: 67978-1 Heart Rate 1: 68 bpm Height: 5'1" Weight: 101 lbs 07/01/2013 Blood Pressure 1: 130/72 Code: 8480-6 BMI: 19.5 Code: 95914-4 Heart Rate 1: 80 bpm Height: 5'1" Temperature: 36.1 (C) / 97.0 (F) Weight: 103 lbs 05/29/2013 Blood Pressure 1: 126/72 Code: 8480-6 BMI: 19.3 Code: 32033-8 Heart Rate 1: 80 bpm Height: 5'1" Weight: 102 lbs 05/15/2013 Blood Pressure 1: 156/74 Code: 8480-6 BMI: 19.3 Code: 83792-4 Heart Rate 1: 88 bpm Height: 5'1" Weight: 102 lbs 04/23/2013 Blood Pressure 1: 140/82 Code: 8480-6 BMI: 19.3 Code: 13704-5 Heart Rate 1: 72 bpm Height: 5'1" Weight: 102 lbs 03/21/2013 Blood Pressure 1: 142/74 Code: 8480-6 Heart Rate 1: 92 bpm Weight: 103 lbs 01/16/2013 Blood Pressure 1: 120/56 Code: 8480-6 BMI: 20.0 Code: 19421-8 Heart Rate 1: 72 bpm Height: 5'1" Weight: 106 lbs 12/19/2012 Blood Pressure 1: 118/66 Code: 8480-6 Heart Rate 1: 84 bpm Weight: 12/10/2012 Blood Pressure 1: 132/62 Code: 8480-6 Heart Rate 1: 64 bpm Weight: 103 lbs 10/30/2012 Blood Pressure 1: 122/66 Code: 8480-6 BMI: 19.9 Code: 45443-5 Heart Rate 1: 61 bpm Height: 5'1" [...] 1: 118/72 Code: 8480-6 BMI: 21.0 Code: 82689-2 Heart Rate 1: 66 bpm Height: 5'1" Respiratory Rate: 16 bpm Weight: 111 lbs 2012 Blood Pressure 1: 122/62 Code: 8480-6 Heart Rate 1: 68 bpm Weight: 110 lbs 12/01/2011 Blood Pressure 1: 150/60 Code: 8480-6 BMI: 20.8 Code: 98063-7 Heart Rate 1: 60 bpm Height: 5'1" Respiratory Rate: 16 bpm Weight: 110 lbs 11/23/2011 Blood Pressure 1: 170/68 Code: 8480-6 BMI: 21.1 Code: 38916-8 Heart Rate 1: 64 bpm Height: 5'1" Temperature: 36.3 (C) / 97.3 (F) Weight: 111 lbs 8 oz 10/17/2011 Blood Pressure 1: 148/62 Code: 8480-6 Heart Rate 1: 74 bpm 10/03/2011 Blood Pressure 1: 102/48 Code: 8480-6 BMI: 21.4 Code: 72149-2 Heart Rate 1: 76 bpm Height: 5'1" Respiratory Rate: 16 bpm Weight: 113 lbs 08/08/2011 Blood Pressure 1: 128/60 Code: 8480-6 Heart Rate 1: 80 bpm Respiratory Rate: 16 bpm Weight: 113 lbs 05/09/2011 Blood Pressure 1: 130/62 Code: 8480-6 BMI: 20.7 Code: 40532-8 Heart Rate 1: 64 bpm Height: 5'1" Respiratory Rate: 16 bpm Weight: 109 lbs 8 oz 03/29/2011 Blood Pressure 1: 120/62 Code: 8480-6 BMI: 20.2 Code: 23671-9 Heart Rate 1: 66 bpm Height: 5'1" Respiratory Rate: 12 bpm Weight: 107 lbs 03/15/2011 Blood Pressure 1: 120/64 Code: 8480-6 BMI: 19.8 Code: 93288-8 Heart Rate 1: 76 bpm Height: 5'1" [...] contacts 03/20/2014 sat next to neighbor in [place] who had tonsillitis sore throat Pertinent Findings [...] Directive data Encounters Encounter Performer Location Codes ([id number]) 51717 EST. PATIENT, LEVEL IV Diagnosis: Localized edema[ICD10: R60.0] Diagnosis: Paroxysmal atrial fibrillation[ICD10: I48.0] Diagnosis: Hypo-osmolality and hyponatremia[ICD10: E87.1] Laura Bahena MD, [facility] CPT-4: 26787 01/03/2019 ([id number]) Miscellaneous no charge Diagnosis: Hypo-osmolality and hyponatremia[ICD10: E87.1] Diagnosis: Paroxysmal atrial fibrillation[ICD10: I48.0] Diagnosis: Muscle weakness (generalized)[ICD10: M62.81] Diagnosis: Major depressive disorder, recurrent, mild[ICD10: F33.0] Karma Bahena MD, [facility] CPT-4: 48952 12/10/2018 ([id number]) 45680 EST. PATIENT, LEVEL III Diagnosis: Chronic atrial fibrillation[ICD10: I48.2] Diagnosis: Cough[ICD10: R05] Laura Bahena MD, [facility] CPT-4: 42334 12/06/2018 ([id number]) 27150 EST. PATIENT, LEVEL III Diagnosis: Acute laryngopharyngitis[ICD10: J06.0] Laura Bahena MD, [facility] CPT-4: 88748 11/30/2018 ([id number]) 36851 EST. 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 PATIENT, LEVEL III Diagnosis: Raynaud's syndrome without gangrene[ICD10: I73.00] Diagnosis: Pain in left hand[ICD10: M79.642] Diagnosis: Pain in right hand[ICD10: M79.641] Karma Bahena MD, [facility] CPT- 4: 79400 10/09/2018 59243 EST. PATIENT, LEVEL III Diagnosis: Cough[ICD10: R05] Diagnosis: Acute laryngopharyngitis[ICD10: J06.0] Diagnosis: Other allergic rhinitis[ICD10: J30.89] Diagnosis: Raynaud's syndrome without gangrene[ICD10: I73.00] Katharine Bahena MD, [facility] CPT-4: 54203 09/12/2018 ([id number]) 97631 EST. PATIENT, LEVEL IV Diagnosis: Raynaud's syndrome without gangrene[ICD10: I73.00] Diagnosis: Pain in right toe(s)[ICD10: M79.674] Diagnosis: Chronic atrial fibrillation[ICD10: I48.2] Karma Bahena MD [facility] CPT-4: 82086 08/14/2018 ([id number]) 78526 EST. PATIENT, LEVEL IV Diagnosis: Chronic atrial fibrillation[ICD10: I48.2] Diagnosis: Sebaceous cyst[ICD10: L72.3] Diagnosis: Raynaud's syndrome without gangrene[ICD10: I73.00] Karma Bahena MD [facility] CPT-4: 55062 07/26/2018 ([id number]) 13703 EST. PATIENT, LEVEL IV Diagnosis: Essential (primary) hypertension[ICD10: I10] Diagnosis: Atrophy of thyroid (acquired)[ICD10: E03.4] Diagnosis: Gastro-esophageal reflux disease without esophagitis[ICD10: K21.9] Karma Bahena MD [facility] CPT-4: 98062 06/04/2018 ([id number]) 34093 EST. PATIENT, LEVEL IV Diagnosis: Essential (primary) hypertension[ICD10: I10] Diagnosis: Atrophy of thyroid (acquired)[ICD10: E03.4] Diagnosis: Other mcc (current) drug therapy[ICD10: Z79.899] Karma Bahena MD [facility] CPT-4: 36469 01/31/2018 ([id number]) 44957 EST. PATIENT, LEVEL IV Diagnosis: Essential (primary) hypertension[ICD10: I10] Diagnosis: Chronic atrial fibrillation[ICD10: I48.2] Diagnosis: Allergic rhinitis due to pollen[ICD10: J30.1] Diagnosis: Cough[ICD10: R05] Karma Bahena MD, [facility] CPT-4: 34200 12/14/2017 92534 EST. PATIENT, LEVEL IV Diagnosis: Other allergic rhinitis[ICD10: J30.89] Katharine Bahena MD [facility] CPT- 4: 73777 12/07/2017 ([id number]) 11945 EST. PATIENT, LEVEL IV Diagnosis: Essential (primary) hypertension[ICD10: I10] Diagnosis: Chronic atrial fibrillation[ICD10: I48.2] Diagnosis: Atrophy of thyroid (acquired)[ICD10: E03.4] Karma Bahena MD [facility] CPT-4: 70957 11/14/2017 ([id number]) 49574 EST. PATIENT, LEVEL IV Diagnosis: Essential (primary) hypertension[ICD10: I10] Diagnosis: Localized edema[ICD10: R60.0] Diagnosis: Encounter for immunization[ICD10: Z23] Diagnosis: Age-related osteoporosis without current pathological fracture[ICD10: M81.0] Karma Bahena MD [facility] CPT-4: 98449 03/27/2017 ([id number]) 02768 EST. PATIENT, LEVEL IV Diagnosis: Essential (primary) hypertension[ICD10: I10] Diagnosis: Chronic atrial fibrillation[ICD10: I48.2] Diagnosis: Dysphonia[ICD10: R49.0] Karma Bahena MD [facility] CPT-4: 78518 01/19/2017 ([id number]) Miscellaneous no charge Diagnosis: Cough[ICD10: R05] Diagnosis: Acute upper respiratory infection, unspecified[ICD10: J06.9] Laura Bahena MD [facility] CPT-4: 72611 11/29/2016 88559 EST. PATIENT, LEVEL III Diagnosis: Cough[ICD10: R05] Diagnosis: Acute laryngopharyngitis[ICD10: J06.0] Katharine Bahena MD [facility] CPT- 4: 59573 11/23/2016 ([id number]) 95602 EST. PATIENT, LEVEL III Diagnosis: Acute laryngopharyngitis[ICD10: J06.0] Laura Bahena MD [facility] CPT-4: 75152 11/21/2016 ([id number]) Miscellaneous no charge Diagnosis: Laceration without foreign body of right forearm, subsequent encounter[ICD10: S51.811D] Karma Bahena MD [facility] CPT-4: 41461 11/17/2016 ([id number]) Miscellaneous no charge Diagnosis: Laceration without foreign body of right forearm, subsequent encounter[ICD10: S51.811D] Karma Bahena MD [facility] CPT-4: 91469 11/14/2016 ([id number]) Miscellaneous no charge Diagnosis: Laceration without foreign body of right forearm, subsequent encounter[ICD10: S51.811D] Karma Bahena MD [facility] CPT-4: 72659 11/11/2016 ([id number]) Miscellaneous no charge Diagnosis: Laceration without foreign body of right forearm, subsequent encounter[ICD10: S51.811D] Karma Bahena MD [facility] CPT-4: 39486 11/10/2016 ([id number]) 96829 EST. PATIENT, LEVEL II Diagnosis: Laceration without foreign body of right forearm, subsequent encounter[ICD10: S51.811D] Karma Bahena MD [facility] CPT-4: 97722 11/08/2016 ([id number]) 82199 EST. PATIENT, LEVEL IV Diagnosis: Atrophy of thyroid (acquired)[ICD10: E03.4] Diagnosis: Chronic atrial fibrillation[ICD10: I48.2] Diagnosis: Laceration without foreign body of right forearm, subsequent encounter[ICD10: S51.811D] Karma Bahena MD [facility] CPT-4: 13496 11/02/2016 ([id number]) 89101 EST. PATIENT, LEVEL III Diagnosis: Laceration without foreign body of right forearm, initial encounter[ICD10: S51.811A] Laura Bahena MD [facility] CPT-4: 41502 10/27/2016 ([id number]) 47138 EST. PATIENT, LEVEL IV Diagnosis: Essential (primary) hypertension[ICD10: I10] Diagnosis: Chronic atrial fibrillation[ICD10: I48.2] Karma Bahena MD [facility] CPT-4: 12152 08/31/2016 ([id number]) 70259 EST. PATIENT, LEVEL IV Diagnosis: Localized edema[ICD10: R60.0] Diagnosis: Essential (primary) hypertension[ICD10: I10] Diagnosis: Abdominal distension (gaseous)[ICD10: R14.0] Karma Bahena MD [facility] CPT-4: 91565 07/27/2016 ([id number]) 27788 EST. PATIENT, LEVEL IV Diagnosis: Essential (primary) hypertension[ICD10: I10] Diagnosis: Chronic atrial fibrillation[ICD10: I48.2] Diagnosis: Localized edema[ICD10: R60.0] Karma Bahena MD, [facility] CPT-4: 38499 06/23/2016 ([id number]) 50389 EST. PATIENT, LEVEL III Diagnosis: Localized edema[ICD10: R60.0] Karma Bahena MD [facility] CPT-4: 48064 06/09/2016 ([id number]) 04163 EST. PATIENT, LEVEL III Diagnosis: Irritable bowel syndrome without diarrhea[ICD10: K58.9] Diagnosis: Pruritus ani[ICD10: L29.0] Karma Bahena MD [facility] CPT-4: 63342 05/25/2016 ([id number]) 61433 EST. PATIENT, LEVEL III Diagnosis: Abdominal distension (gaseous)[ICD10: R14.0] Diagnosis: Encounter for screening mammogram for malignant neoplasm of breast[ICD10: Z12.31] Karma Bahena MD [facility] CPT-4: 56468 05/17/2016 ([id number]) 80392 EST. PATIENT, LEVEL IV Diagnosis: Essential (primary) hypertension[ICD10: I10] Diagnosis: First degree hemorrhoids[ICD10: K64.0] Diagnosis: Encounter for immunization[ICD10: Z23] Karma Bahena MD, [facility] CPT-4: 74129 03/24/2016 ([id number]) 82477 EST. PATIENT, LEVEL III Diagnosis: Epidermal cyst[ICD10: L72.0] Diagnosis: Essential (primary) hypertension[ICD10: I10] Diagnosis: Chronic atrial fibrillation[ICD10: I48.2] Diagnosis: Other mcc (current) drug therapy[ICD10: Z79.899] Karma Bahena MD [facility] CPT-4: 71279 02/02/2016 ([id number]) 00252 EST. PATIENT, LEVEL III Diagnosis: Acute anal fissure[ICD10: K60.0] Karma Bahena MD, [facility] CPT-4: 53286 2016 ([id number]) 17240 EST. PATIENT, LEVEL III Diagnosis: Allergic rhinitis due to pollen[ICD10: J30.1] Diagnosis: Acute upper respiratory infection, unspecified[ICD10: J06.9] Laura Bahena MD, [facility] CPT-4: 61757 12/21/2015 ([id number]) 33971 EST. PATIENT, LEVEL III Diagnosis: Essential (primary) hypertension[ICD10: I10] Diagnosis: Chronic atrial fibrillation[ICD10: I48.2] Karma Bahena MD, [facility] CPT-4: 97613 11/03/2015 ([id number]) Miscellaneous no charge Diagnosis: Impacted cerumen, right ear[ICD10: H61.21] Katharine Bahena MD [facility] CPT-4: 31692 10/19/2015 17690 EST. PATIENT, LEVEL IV Diagnosis: Impacted cerumen, right ear[ICD10: H61.21] Diagnosis: Other allergic rhinitis[ICD10: J30.89] Katharine Bahena MD, [facility] CPT- 4: 31713 10/13/2015 ([id number]) 92536 EST. PATIENT, LEVEL IV Diagnosis: Essential (primary) hypertension[ICD10: I10] Diagnosis: Chronic atrial fibrillation[ICD10: I48.2] Diagnosis: Urge incontinence[ICD10: N39.41] Diagnosis: Age-related osteoporosis without current pathological fracture[ICD10: M81.0] Karma Bahena MD, [facility] CPT-4: 83751 09/29/2015 ([id number]) 38171 EST. PATIENT, LEVEL IV Diagnosis: Essential (primary) hypertension[ICD10: I10] Diagnosis: Chronic atrial fibrillation[ICD10: I48.2] Diagnosis: Irritable bowel syndrome without diarrhea[ICD10: K58.9] Diagnosis: Unspecified hemorrhoids[ICD10: K64.9] Karma Bahena MD, [facility] CPT-4: 00254 09/15/2015 ([id number]) 94449 EST. 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 PATIENT, LEVEL III Diagnosis: Hematuria, unspecified[ICD10: R31.9] Diagnosis: Other urethritis[ICD10: N34.2] Diagnosis: Other specified noninflammatory disorders of vagina[ICD10: N89.8] Karma Bahena MD, [facility] CPT-4: 69082 05/26/2015 33063 EST. PATIENT, LEVEL IV Diagnosis: Gout, unspecified[ICD10: M10.9] Karma Bahena MD, [facility] CPT-4: 98880 05/21/2015 ([id number]) 32593 EST. PATIENT, LEVEL IV Diagnosis: Chronic atrial fibrillation[ICD10: I48.2] Diagnosis: Irritable bowel syndrome without diarrhea[ICD10: K58.9] Diagnosis: Cystocele, unspecified[ICD10: N81.10] Diagnosis: Urge incontinence[ICD10: N39.41] Diagnosis: Fecal smearing[ICD10: R15.1] Diagnosis: Hypothyroidism, unspecified[ICD10: E03.9] Karma Bahena MD, [facility] CPT-4: 66127 05/07/2015 ([id number]) 35772 EST. PATIENT, LEVEL III Diagnosis: Atrial fibrillation[ICD9: 427.31] Diagnosis: Bloating[ICD9: 787.3] Karma Bahena MD, [facility] CPT-4: 38976 03/23/2015 ([id number]) 58774 EST. PATIENT, LEVEL IV Diagnosis: Abdominal pain[ICD9: 789.00] Diagnosis: Atrial fibrillation[ICD9: 427.31] Diagnosis: ENCNTR LONG-ANTICOAG USE[ICD9: V58.61] Karma Bahena MD, [facility] CPT-4: 84664 03/09/2015 ([id number]) 33980 EST. PATIENT, LEVEL IV Diagnosis: HEMATURIA NOS[ICD9: 599.70] Diagnosis: Atrial fibrillation[ICD9: 427.31] Diagnosis: HYPOTHYROIDISM[ICD9: 244.9] Karma Bahena MD, [facility] CPT-4: 83786 10/30/2014 ([id number]) 04401 EST. PATIENT, LEVEL IV Diagnosis: Atrial fibrillation[ICD9: 427.31] Diagnosis: ALLERGIC RHINITIS[ICD9: 477.9] Diagnosis: Need for pneumococcal vaccine[ICD9: V03.82] Diagnosis: Osteoarthritis[ICD9: 715.90] Diagnosis: Osteoporosis[ICD9: 733.00] Karma Bahena MD, [facility] CPT-4: 74722 07/11/2014 ([id number]) 40227 EST. PATIENT, LEVEL III Diagnosis: Urge incontinence[ICD9: 788.31] Diagnosis: Dysuria[ICD9: 788.1] Karma Bahena MD, [facility] CPT-4: 91918 05/20/2014 ([id number]) 42278 EST. PATIENT, LEVEL IV Diagnosis: Atrial fibrillation[ICD9: 427.31] Diagnosis: Hematuria[ICD9: 599.70] Diagnosis: Dysuria[ICD9: 788.1] Diagnosis: ESSENTIAL HYPERTENSION[ICD9: 401.9] Karma Bahena MD, [facility] CPT- 4: 72094 04/29/2014 ([id number]) 29079 EST. PATIENT, LEVEL IV Diagnosis: ESSENTIAL HYPERTENSION[ICD9: 401.9] Diagnosis: ALLERGIC RHINITIS[ICD9: 477.9] Karma Bahena MD, [facility] CPT-4: 47400 03/20/2014 ([id number]) 10376 EST. PATIENT, LEVEL IV Diagnosis: ESSENTIAL HYPERTENSION[ICD9: 401.9] Diagnosis: ATRIAL FIBRILLATION[ICD9: 427.31] Diagnosis: Irritable bowel[ICD9: 564.1] Karma Bahena MD, [facility] CPT-4: 95155 03/05/2014 ([id number]) 76678 EST. PATIENT, LEVEL IV Diagnosis: Esophageal reflux[ICD9: 530.81] Diagnosis: DIARRHEA[ICD9: 787.91] Diagnosis: ABDOM PAIN NOS SITE[ICD9: 789.00] Karma Bahnea MD, [facility] CPT- 4: 02813 01/29/2014 ([id number]) 87990 EST. PATIENT, LEVEL III Diagnosis: Irritable bowel[ICD9: 564.1] Diagnosis: DIARRHEA[ICD9: 787.91] Laura Bahena MD, [facility] CPT-4: 05513 01/14/2014 ([id number]) 67593 EST. PATIENT, LEVEL IV Diagnosis: ESSENTIAL HYPERTENSION[ICD9: 401.9] Diagnosis: ATRIAL FIBRILLATION[ICD9: 427.31] Diagnosis: URGE INCONTINENCE[ICD9: 788.31] Diagnosis: MALAISE AND FATIGUE[ICD9: 780.79] Diagnosis: Dyspnea[ICD9: 786.09] Karma Bahena MD [facility] CPT-4: 93659 12/25/2013 ([id number]) 29407 EST. PATIENT, LEVEL IV Diagnosis: ESSENTIAL HYPERTENSION[SNOMED: 87816413] Diagnosis: ATRIAL FIBRILLATION[ICD9: 427.31] Diagnosis: Abdominal pain[ICD9: 789.00] Diagnosis: ESOPHAGEAL REFLUX[ICD9: 530.81] Karma Bahena MD [facility] CPT-4: 93923 11/27/2013 ([id number]) [id number] EST. PATIENT, LEVEL IV Diagnosis: ESSENTIAL HYPERTENSION[SNOMED: 64255846] Diagnosis: ATRIAL FIBRILLATION[ICD9: 427.31] Diagnosis: Chronic osteoarthritis[ICD9: 715.90] Karma Bahena MD [facility] CPT- 4: 13922 09/12/2013 ([id number]) 82789 EST. PATIENT, LEVEL III Diagnosis: ESSENTIAL HYPERTENSION[SNOMED: 10467148] Diagnosis: Bruising[ICD9: 924.9] Diagnosis: ENCNTR LONG-RX USE NEC[ICD9: V58.69] Karma Bahena MD [facility] CPT- 4: 70630 08/15/2013 ([id number]) 77895 EST. PATIENT, LEVEL IV Diagnosis: ESSENTIAL HYPERTENSION[SNOMED: 69233463] Diagnosis: Hematuria[ICD9: 599.70] Diagnosis: Dysuria[ICD9: 788.1] Karma Bahena MD [facility] CPT-4: 24330 08/01/2013 ([id number]) 63221 EST. PATIENT, LEVEL III Diagnosis: UTI[ICD9: 599.0] Diagnosis: Hematuria[ICD9: 599.70] Laura Bahena MD [facility] CPT-4: 83786 07/01/2013 ([id number]) 25329 EST. PATIENT, LEVEL III Diagnosis: ATRIAL FIBRILLATION[ICD9: 427.31] Diagnosis: ESSENTIAL HYPERTENSION[SNOMED: 68762986] Karma Bahena MD [facility] CPT-4: 17435 05/29/2013 ([id number]) 75050 EST. PATIENT, LEVEL IV Diagnosis: Atrial fibrillation[ICD9: 427.31] Diagnosis: Encounter for monitoring digoxin therapy[ICD9: V58.83] Diagnosis: ESSENTIAL HYPERTENSION[SNOMED: 51077921] Karma Bahena MD, [facility] CPT-4: 95378 05/15/2013 ([id number]) 22077 EST. PATIENT, LEVEL IV Diagnosis: ESSENTIAL HYPERTENSION[SNOMED: 50819340] Diagnosis: ATRIAL FIBRILLATION[ICD9: 427.31] Diagnosis: PALPITATIONS[ICD9: 785.1] Diagnosis: Dizziness and giddiness[ICD9: 780.4] Karma Bahena MD, [facility] CPT- 4: 07966 04/23/2013 ([id number]) 76395 EST. PATIENT, LEVEL III Diagnosis: OTHER CONSTIPATION[ICD9: 564.09] Diagnosis: ABDOM PAIN NOS SITE[ICD9: 789.00] Laura Bahena MD, [facility] CPT- 4: 75928 03/21/2013 ([id number]) 50844 EST. PATIENT, LEVEL IV Diagnosis: ESSENTIAL HYPERTENSION[SNOMED: 25520176] Diagnosis: Atrial fibrillation[ICD9: 427.31] Karma Bahena MD, [facility] CPT- 4: 90272 01/16/2013 ([id number]) Miscellaneous no charge Diagnosis: CELLULITIS OF HAND[ICD9: 682.4] Karma Bahena MD, [facility] CPT-4: 39066 12/19/2012 ([id number]) Miscellaneous no charge Diagnosis: ENCOUNTER FOR THERAPEUTIC DRUG MONITORING[ICD9: V58.83] Diagnosis: CELLULITIS OF HAND[ICD9: 682.4] Karma Bahena MD, [facility] CPT-4: 76799 12/14/2012 Miscellaneous no charge Diagnosis: CELLULITIS OF HAND[ICD9: 682.4] [facility] CPT-4: 65001 12/12/2012 09747 EST. PATIENT, LEVEL II Diagnosis: CELLULITIS OF HAND[ICD9: 682.4] Diagnosis: ENCNTR LONG-RX USE NEC[ICD9: V58.69] Diagnosis: LONG-TERM USE ANTICOAGUL[ICD9: V58.61] Karma Bahena MD [facility] CPT-4: 83552 12/11/2012 ([id number]) 33492 EST. PATIENT, LEVEL III Diagnosis: CELLULITIS OF HAND[ICD9: 682.4] Karma Bahena MD [facility] CPT-4: 92503 12/10/2012 ([id number]) 09517 EST. PATIENT, LEVEL IV Diagnosis: Elevated digoxin level[ICD9: 796.0] Diagnosis: ATRIAL FIBRILLATION[ICD9: 427.31] Diagnosis: Inflammatory arthritis[ICD9: 714.9] Karma Bahena MD [facility] CPT- 4: 72348 10/30/2012 ([id number]) 58176 EST. PATIENT, LEVEL IV Diagnosis: Atrial fibrillation[ICD9: 427.31] Diagnosis: Anticoagulant long-term use[ICD9: V58.61] Diagnosis: ESSENTIAL HYPERTENSION[SNOMED: 90365942] Karma Bahena MD [facility] CPT-4: 94245 08/08/2012 ([id number]) 94480 EST. PATIENT, LEVEL IV Diagnosis: ABDOM PAIN NOS SITE[ICD9: 789.00] Diagnosis: Constipation - functional[ICD9: 564.09] Diagnosis: EDEMA[ICD9: 782.3] Diagnosis: ATRIAL FIBRILLATION[ICD9: 427.31] Karma Bahena MD [facility] CPT- 4: 79696 07/11/2012 ([id number]) 64132 EST. PATIENT, LEVEL III Diagnosis: Cystocele[ICD9: 618.01] Diagnosis: Rectocele[ICD9: 618.04] Karma Bahena MD [facility] CPT-4: 31817 05/08/2012 [id number]) 82215 EST. 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 PATIENT, LEVEL IV Diagnosis: ATRIAL FIBRILLATION[ICD9: 427.31] Diagnosis: URGE INCONTINENCE[ICD9: 788.31] Diagnosis: MALAISE AND FATIGUE[ICD9: 780.79] Diagnosis: Dyspnea[ICD9: 786.09] Karma Bahena MD, [facility] CPT-4: 83991 02/20/2012 06969 EST. PATIENT, LEVEL IV Diagnosis: Hematuria[ICD9: 599.70] Diagnosis: Vaginal yeast infection[ICD9: 112.1] Diagnosis: ATRIAL FIBRILLATION[ICD9: 427.31] Laura Bahena MD [facility] CPT- 4: 05588 02/13/2012 ([id number]) 42241 EST. PATIENT, LEVEL IV Diagnosis: Atrial fibrillation[ICD9: 427.31] Diagnosis: Anticoagulation goal of INR 2 to 3[ICD9: V58.83] Diagnosis: Urinary incontinence, urge[ICD9: 788.31] Diagnosis: ESSENTIAL HYPERTENSION[SNOMED: 84106374] Karma Bahena MD [facility] CPT-4: 18341 02/01/2012 ([id number]) 09516 EST. PATIENT, LEVEL IV Diagnosis: Atrial fibrillation[ICD9: 427.31] Diagnosis: Anticoagulant long-term use[ICD9: V58.61] Diagnosis: ESSENTIAL HYPERTENSION[SNOMED: 55060456] Karma Bahena MD, [facility] CPT-4: 83642 2012 53497 EST. PATIENT, LEVEL IV Diagnosis: UTI[ICD9: 599.0] Diagnosis: ESSENTIAL HYPERTENSION[SNOMED: 99817471] Diagnosis: MALAISE AND FATIGUE[ICD9: 780.79] Diagnosis: Esophageal reflux[ICD9: 530.81] Karma Bahena MD [facility] CPT-4: 17227 12/01/2011 ([id number]) 67683 EST. PATIENT, LEVEL IV Diagnosis: UTI (urinary tract infection)[ICD9: 599.0] Diagnosis: ESSENTIAL HYPERTENSION[SNOMED: 37798579] Diagnosis: URGE INCONTINENCE[ICD9: 788.31] Karma Bahena MD, [facility] CPT-4: 10094 11/23/2011 ([id number]) 92174 EST. PATIENT, LEVEL IV Diagnosis: ESSENTIAL HYPERTENSION[SNOMED: 58116846] Diagnosis: IMPACTED CERUMEN[ICD9: 380.4] Diagnosis: MALAISE AND FATIGUE[ICD9: 780.79] Diagnosis: EDEMA[ICD9: 782.3] Karma Bahena MD, [facility] CPT-4: 19382 10/03/2011 25424 EST. PATIENT, LEVEL IV Diagnosis: ESSENTIAL HYPERTENSION[SNOMED: 12714491] Diagnosis: Generalized osteoarthritis[ICD9: 715.09] Diagnosis: OSTEOPOROSIS[ICD9: 733.00] Karma Bahena MD [facility] CPT-4: 70649 08/08/2011 10690 EST. PATIENT, LEVEL IV Diagnosis: Muscle cramp[ICD9: 729.82] Diagnosis: Torticollis[ICD9: 723.5] Diagnosis: Rash[ICD9: 782.1] Karma Bahena MD [facility] CPT-4: 04904 05/09/2011 07882 EST. PATIENT, LEVEL IV Diagnosis: Leg cramps, sleep related[ICD9: 327.52] Diagnosis: Underweight[ICD9: 783.22] Karma Bahena MD [facility] CPT-4: 65588 03/29/2011 46291 EST. PATIENT, LEVEL IV Diagnosis: UTI[ICD9: 599.0] Diagnosis: Urge incontinence[ICD9: 788.31] Diagnosis: Loss of weight[ICD9: 783.21] Diagnosis: Palpitations[ICD9: 785.1] Diagnosis: Peripheral neuropathy, idiopathic[ICD9: 356.9] Karma Bahena MD, [facility] CPT-4: 83286 03/15/2011 Plan of Care Planned Activity Notes [...] uncontrolled. Low sodium -check level today 01/03/2019 Patient Education: Patient Medication Summary Completed 01/03/2019 Appointment: Laura Colin WPtel: [phone] [phone] (30 min) Complex 12/13/2018 Visit Plan: Afib -hyponatremia -generalized weakness -Dr Bahena in to evaluate patient -plan to admit for further evaluation and treatment - will repeat labs -start IVF-monitor with telemetry and consult Dr Rock Depression -restart lexapro 5mg daily 12/10/2018 Appointment: Laura Colin WPtel: [phone] [phone] (30 min) Complex 12/10/2018 Patient Education: Patient [...] to monitor 12/06/2018 Appointment: Laura Colin WPtel: [facility]6 [phone] (15 min) Moderate 12/06/2018 Patient Education: Patient Medication Summary Completed 12/06/2018 Visit Plan: Pharyngitis-Discussed natural and expected course of this diagnosis and need to alert me if symptoms do not follow expected course, or if any worse. Recommended salt water gargles as needed for pain. Ty lenol/motrin as needed for fever/discomfort. 11/30/2018 Appointment: Laura Colin WPtel: [phone] [phone] (30 min) Complex 11/30/2018 Patient Education: Patient Medication Summary Completed 11/30/2018 Appointment: Karma Bahena WPtel: [address] [place], [place] [phone] (15 min) Moderate 11/14/2018 Visit Plan: Hypothyroidism [...] for imvexxy 10/31/2018 Appointment: Karma Bahena WPtel: [facility]8 [facility] (15 min) Moderate 10/31/2018 Patient Education: Patient Medication Summary Completed 10/31/2018 Visit Plan: Hand pain with arthritis - Raynaud syndrome - discussed with pt - RX for Voltaren gel sent to the pharmacy. continue with amlodipine. 10/09/2018 Appointment: Karma Bahena WPtel: [address] [place], [place] [phone] (15 min) Moderate 10/09/2018 Patient Education: Patient Medication Summary Completed 10/09/2018 Appointment: Karma Bahena WPtel: [facility]1 [facility] (15 min) Moderate 10/01/2018 Visit Plan: URI [...] or concerns. 09/12/2018 Appointment: Katharine Dai WPtel: [address] [place], [place] [id number] (15 min) Moderate 09/12/2018 Patient Education: Patient Medication Summary Completed 09/12/2018 Appointment: Karma Bahena WPtel: [facility]3 [facility]6[address] (15 min) Moderate 08/16/2018 Visit Plan: [...] surgically removed. 08/14/2018 Appointment: Karma Bahena WPtel: [facility]3 [facility]6676[facility] (15 min) Moderate 08/14/2018 Patient Education: [...] removed. 07/26/2018 Appointment: Karma Bahena WPtel: [phone] [facility] (15 min) Moderate 07/26/2018 Patient Education: [...] improving. 06/04/2018 App[facility]ment[phone] (15 min) Moderate 06/04/2018 Patient Education: Patient Medication Summary Completed 06/04/2018 Appointment: Karma Bahena WPtel: [address] [facility] [place] (15 min) Moderate 03/14/2018 Visit [...] of control. 01/31/2018 Appointment: Suhas Katharine [facility]Ptel[phone] [facility] - Annual Wellness Visit 01/31/2018 [...] spray. 12/14/2017 Appointment: Karma Bahena WPtel: [phone] [facility] (15 min) Moderate 12/14/2017 Patient Education: [...] allergy spray. 12/07/2017 Appointment: Katharine Dai WPtel: [facility]7 [address] (15 min) Moderate 12/07/2017 Patient Education: [...] q 3 months or q 6 m [facility] based on previous levels of control. 11/14/2017 Appointment: Karma Bahena WPtel: [facility]0 [facility] (15 min) Moderate 11/14/2017 Patient Education: [...] today. 03/27/2017 Appointment: Karma Bahena WPtel: [phone] [facility] (15 min) Moderate 03/27/2017 Patient [...] surrogate. 01/23/2017 Appointment: Katharine Dai WPtel: [phone] [facility] [facility] - Annual Wellness Visit 01/23/2017 [...] becoming uncontrolled. 01/19/2017 Appointment: Karma Bahena WPtel: [facility]9 [facility]6676[facility] (15 min) Moderate 01/19/2017 Patient Education: Patient Medication Summary Completed 01/19/2017 Care Plan: Referral Order SNOMED-CT : [id number] Pending 01/19/2017 Appointment: Karma Bahena WPtel: [facility]3 [facility]6676[facility] (15 min) Moderate 01/04/2017 Appointment: Karma Bahena WPtel: [facility]3 [facility]66[facility] (15 min) Moderate 12/28/2016 Visit Plan: HMN-bnbeo-ojx zpack-call if symptoms do not resolve or if any worse. Patient verbalized understanding of plan. 11/29/2016 Appointment: Laura Colin WPtel: [facility]7 [phone] [place] (15 min) Moderate 11/29/2016 Patient [...] patient's pharmacy. 11/23/2016 Appointment: Katharine Dai WPtel: [facility]7 [facility] (15 min) Moderate 11/23/2016 Patient Education: Patient Medication Summary Completed 11/23/2016 Visit Plan: Pharyngitis-Discussed natural and expected course of this diagnosis and need to alert me if symptoms do not follow expected course, or if any worse. Recommended salt water gargles as needed for pain. Ty lenol/motrin as needed for fever/discomfort. 11/21/2016 Appointment: Laura Colin WPtel: [phone] [phone] [place] (15 min) Moderate 11/21/2016 Patient [...] symptoms. 11/08/2016 Appointment: Karma Bahena WPtel: [phone] [facility] [place] (10 min) Simple 11/08/2016 Patient [...] bactroban, etc. 11/02/2016 Appointment: Karma Bahena WPtel[facility] [phone] [facility] [place] (15 min) Moderate 11/02/2016 Appointment: Nurse Visit 11/02/2016 Patient Education: Patient Medication Summary Completed 11/02/2016 Appointment: Nurse Visit 10/31/2016 Visit Plan: Laceration-right forearm- Pt was instructed to keep the wound clean, cleanse with sterile saline, use bactroban ointment, call if redness, pustular drainage, or any other acute concerns. Follow up Monday for dressing changes. 10/27/2016 Appointment: Laura Colin WPtel: [phone] [phone] (30 min) Complex 10/27/2016 Patient Education: Patient [...] symptoms. 08/31/2016 Appointment: Karma Bahena WPtel: [phone] [facility] (15 min) Moderate 08/31/2016 Patient Education: [...] your swelling. 07/27/2016 Appointment: Karma Bahena WPtel: [phone] [facility] (15 min) Moderate 07/27/2016 Patient Education: [...] lasix 06/23/2016 Appointment: Karma Bahena WPtel: [facility]0 [facility]6676[facility] (15 min) Moderate 06/23/2016 Patient Education: Patient Medication Summary Completed 06/23/2016 Patient Education: Hypertension Completed 06/23/2016 Visit Plan: Edema - with Dyspnea - RX for laxis and compression socks - pt to call if not improving. 06/09/2016 Appointment: Karma Bahena WPtel: [facility]4 [facility]6676[facility] (15 min) Moderate 06/09/2016 Patient Education: Patient Medication Summary Completed 06/09/2016 Visit Plan: Abdominal pain and rectal itching - recommended pt to use betamethasone on vaginal/rectal region, monitor symptoms call if not improving. Continue with beano and simethicone 05/25/2016 Appointment: Karma Bahena WPtel: [facility]4 [facility]6676[facility] (15 min) Moderate 05/25/2016 Patient Education: Patient Medication Summary Completed 05/25/2016 Care Plan: SCREENINGMAMMOGRAPHYDIGITAL LOINC : 58923-7 Pending 05/20/2016 Visit Plan: Abdominal distension - use simethicone four times daily - after meals - if it does not help - in the next two weeks - call the office and we will do a ct scan of the abdomen and pelvis 05/17/2016 Appointment: Karma Bahena WPtel: [facility]9 [facility] (15 min) Moderate 05/17/2016 Patient Education: [...] ointment 03/24/2016 Appointment: Karma Bahena WPtel: [phone] [facility]6676[facility] (30 min) Complex 03/24/2016 Patient Education: [...] spray. 12/21/2015 Appointment: Laura Colin WPtel: [phone] [phone] (30 min) Complex 12/21/2015 Patient Education: Patient [...] uncontrolled. 11/03/2015 Appointment: Karma Bahena WPtel: [phone] [facility] (15 min) Moderate 11/03/2015 Patient Education: [...] Hypertension Completed 09/01/2015 Appointment: Karma Bahena WPtel: [address] [place] [address] (15 min) Moderate 07/13/2015 Visit Plan: Hematuria/Urethritis [...] 05/13/2015 Care Plan: Referral Order SNOMED-CT : [id number] Ordered 05/08/2015 Visit Plan: Atrial Fibrillation - [...] Dr. Collins. 05/07/2015 Appointment: Karma Bahena WPtel: [facility]5 [facility] (15 min) Moderate 05/07/2015 Patient Education: [...] becoming uncontrolled. 10/30/2014 Appointment: Karma Bahena WPtel: [address] [place], [place] [phone] Follow up 10/30/2014 Patient Education: Patient Medication Summary Completed 10/30/2014 Appointment: Karma Bahena WPtel: [address] [place], [place] [phone] Follow up 07/22/2014 Visit Plan: Atrial Fibrillation [...] hospital. 07/11/2014 Appointment: Karma Bahena WPtel: [facility]2 [facility] Sick 07/11/2014 Patient Education: Patient Medication Summary Completed 07/11/2014 Appointment: Karma Bahena WPtel: [facility]4 [facility] [place] Follow up 07/07/2014 Visit Plan: [...] times weekly. 05/20/2014 Appointment: Karma Bahena WPtel: [address] [place] [address] Follow up 05/20/2014 Patient Education: Patient Medication Summary Completed 05/20/2014 Appointment: Karma Bahena WPtel: [address] [place], [place] [phone] [place] Lab Draw 05/14/2014 Patient Education: Patient [...] vesicare. 04/29/2014 Appointment: Karma Bahena WPtel: [facility]2 [facility] [place] Follow up 04/29/2014 Patient Education: Patient Medication [...] allergy spray. 03/20/2014 Appointment: Karma Bahena WPtel: [address] [place], [place] [phone] [facility] 03/20/2014 Patient Education: Patient Medication [...] becoming uncontrolled. 03/05/2014 Appointment: Karma Bahena WPtel: [facility]3 [facility] Follow up 03/05/2014 Patient Education: Patient [...] report. 01/29/2014 Appointment: Karma Bahena WPtel: [phone] [facility] Follow up 01/29/2014 Patient Education: Patient [...] exposure,and dyspnea on exertion - will ask [place] Home Patient do an overnight oxygen study on [place] as she has cardiac history, weight loss, and nocturnal hypoxemia may be a part of her weight loss and fatigue. 12/25/2013 Appointment: Karma Bahena WPtel: [phone] [facility] Follow up 12/25/2013 Patient Education: Patient [...] daily. 11/27/2013 Appointment: Karma Bahena WPtel: [phone] [facility] Follow up 11/27/2013 Patient Education: [...] heart rate. Osteoarthritis - send pt to [facility] physical therapy for gereral osteoarhtritis program for strengthening and pain reduction. Hypertension - well controlled - continue with current medications, continue with no added salt diet. Pt has been encouraged to exercise daily. The pt has been advised to call the office if there are any acute concerns about change in blood pressure readings at home. 09/12/2013 Appointment: Karma Bahena WPtel: [phone] [facility] [place] Follow up 09/12/2013 Patient Education: Patient Medication Summary Completed 09/12/2013 Patient Education: Hypertension Completed 09/12/2013 Appointment: Karma Bahena WPtel: [phone] [facility] [place] Follow up 08/21/2013 Visit Plan: [...] coumadin-check PT/INR 08/15/2013 Appointment: Karma Bahena WPtel: [facility]5 [facility] [place] Follow up 08/15/2013 Patient Education: Patient Medication Summary Completed 08/15/2013 Patient Education: Hypertension Completed 08/15/2013 Visit Plan: Hypertension - uncontrolled -per patient's home blood pressure checks, but it is good in clinic - the pt is to bring by her penelopeine next week - the patient's medications have [...] of urethra. 08/01/2013 Appointment: Karma Bahena WPtel: [address] [place], [place] [address] [place] Follow up 08/01/2013 Patient Education: Patient Medication Summary Completed 08/01/2013 Patient Education: Hypertension Completed 08/01/2013 Appointment: Laura Colin WPtel: [facility]5 [phone] [place] Lab Draw 07/29/2013 Patient Education: Patient Medication Summary Completed 07/29/2013 Visit Plan: Osteoporosis-prolia on june 25-patient to let Dr Hansen know 07/01/2013 Appointment: Laura Colin WPtel: [facility]5 [phone] [place] Follow up 07/01/2013 Appointment: Karma Bahena WPtel: [phone] [facility] Follow up 07/01/2013 Patient Education: Patient Medication Summary Completed 07/01/2013 Appointment: Karma Bahena WPtel: [address] [place] [address] Follow up 06/25/2013 Appointment: Karma Bahena WPtel: [address] [place], [place] [phone] Lab Draw 06/20/2013 Patient Education: Patient Medication Summary Completed 06/20/2013 Appointment: Karma Bahena WPtel: [address] [place], [place] [address] Lab Draw 06/19/2013 Visit Plan: Atrial Fibrillation [...] at home. 05/29/2013 Appointment: Karma Bahena WPtel: [address] [place], [place] [phone] Follow up 05/29/2013 Patient Education: Patient Medication [...] home. 05/15/2013 Appointment: Karma Bahena WPtel: [address] [place] [address] Other 05/15/2013 Patient Education: Patient Medication Summary [...] today. 04/23/2013 Appointment: Karma Bahena WPtel: [facility]1 [facility] [place] Other 04/23/2013 Patient Education: Patient [...] regimen. 03/21/2013 Appointment: Laura Colin WPtel: [facility]5 [phone] Follow up 03/21/2013 Patient Education: Patient [...] becoming uncontrolled. 01/16/2013 Appointment: Karma Bahena WPtel: [phone] [facility] [place] Follow up 01/16/2013 Patient Education: Patient Medication Summary Completed 01/16/2013 Patient Education: Hypertension Completed 01/16/2013 Visit Plan: Wound Instructions - Pt was instruced to keep the wound clean, wash with antibacterial soap, use triple antibiotic ointment, call if redness, pustular drainage, or any other acute conerns. 12/19/2012 Appointment: Karma Bahena WPtel: [facility]5 [facility] Other 12/19/2012 Patient Education: Patient Medication Summary Completed 12/19/2012 Patient Education: Patient Medication Summary Completed 12/17/2012 Visit Plan: Cellulitis - improved- monitor symptoms - need to check handon Monday morning. 12/14/2012 Appointment: Karma Bahena WPtel: [address] [place], [place] [phone] Follow up 12/14/2012 Patient Education: Patient Medication Summary Completed 12/14/2012 Visit Plan: Cellulitis - improved- monitor symptoms - need to check handon Monday morning. 12/12/2012 Appointment: Karma Bahena WPtel: [address] [place], [place] [phone] Work-in 12/12/2012 Patient Education: Patient Medication Summary [...] warmth, discharge. 12/10/2012 Appointment: Karma Bahena WPtel: [facility]5 [facility] Other 12/10/2012 Patient Education: Patient Medication [...] heart rate is becoming uncontrolled. 10/30/2012 Appointment: Josef Karma WPtel: [phone] [facility] Follow up 10/30/2012 Patient Education: Patient Medication Summary Completed 10/30/2012 Appointment: Laura Colin WPtel: [facility]5 [phone] Lab Draw 09/13/2012 Patient Education: Patient [...] is between 2.0 and 3.5. 08/08/2012 Appointment: [place] Karma WPtel: [facility]5 [facility] Other 08/08/2012 Patient Education: Patient Medication [...] this regimen. 07/11/2012 Appointment: Karma Bahena WPtel: [address] [place], [place] [phone] swelling, leg edema Other 07/11/2012 Patient Education: [...] medication vaginally. 05/08/2012 Appointment: Karma Bahena WPtel: [address] [place], [place] [phone] [place] Follow up 05/08/2012 Patient Education: Patient [...] during hospitalization. 04/18/2012 Appointment: Karma Bahena WPtel: [address] [place], [place] [phone] [place] Follow up 04/18/2012 Patient Education: Patient Medication Summary Completed 04/18/2012 Patient Education: High Blood Pressure: Essential Hypertension Completed 04/18/2012 Appointment: Karma Bahena WPtel: [address] [place], [place] [phone] [place] Follow up 04/09/2012 Appointment: Karma Bahena WPtel: [phone] [facility] [place] Lab Draw 04/04/2012 Appointment: Laura Colin WPtel: [phone] [facility] [place] Lab Draw 03/19/2012 Visit Plan: Abdominal [...] Completed 03/13/2012 Appointment: Kar[facility] Bahena [facility]el[phone] [facility] [place] Lab Draw 03/08/2012 Patient Education: [...] rehab. 02/20/2012 Appointment: Karma Bahena WPtel: [facility]5 [facility] Other 02/20/2012 Patient Education: Patient Medication [...] uncontrolled. 02/13/2012 Appointment: Laura Colin WPtel: [facility]7 [phone] Other 02/13/2012 Patient Education: Patient Medication Summary Completed 02/13/2012 Appointment: Karma Bahena WPtel: [address] [place], [place] [id number] Lab Draw 02/07/2012 Visit Plan: Atrial Fibrillation [...] a PT/INR ON THE OLIVIA AFTER SHE START S THE COUMADIN, THEN [...] medication. 02/01/2012 Appointment: Karma Bahena WPtel: [facility] [facility] 02/01/2012 Patient Education: Patient Medication Summary Completed 02/01/2012 Patient Education: High Blood Pressure: Essential Hypertension Completed 02/01/2012 Appointment: Karma Bahena WPtel: [facility] [facility] 01/17/2012 Visit Plan: Atrial [...] home. 2012 Appointment: Karma Bahena WPtel: [facility] Other 2012 Patient Education: Patient Medication Summary Completed 2012 Patient Education: High Blood Pressure: Essential Hypertension Completed 2012 Appointment: Karma Bahena WPtel: [facility] Follow up 12/20/2011 Visit Plan: Dicyclomine [...] go to the emergency room. 12/01/2011 Appointment: JosefKarma WPtel[facility] [phone] [facility] [place] Other 12/01/2011 Patient Education: Patient [...] resolves. 11/23/2011 Appointment: [facility] Colin [facility]el[phone] Other 11/23/2011 Patient Education: Patient Medication Summary Completed 11/23/2011 Patient Education: High Blood Pressure: Essential Hypertension Completed 11/23/2011 Visit Plan: Cerumen Impaction - The impacted cerumen was removed with the use of either ear currette alone or in combination with ear curette and water pick. The patient tolerated the procedure without incident and had improvement in hearing 10/17/2011 Appointment: Laura Colin WPtel: [phone] [id number] Other 10/17/2011 Patient Education: Patient Medication Summary [...] by irrigation. 10/03/2011 Appointment: Karma Bahena WPtel: [facility] [place] [address] [place] Other 10/03/2011 Patient Education: Patient Medication [...] evidence. 08/08/2011 Appointment: Karma Bahena WPtel: [phone] [facility] Other 08/08/2011 Patient Education: Patient Medication Summary Completed 08/08/2011 Patient Education: High Blood Pressure: Essential Hypertension Completed 08/08/2011 Visit Plan: Muscle cramps - the cramps are a little better, continue with the Diltiazem and it is okay to use the over the counter supplement with quinine - but use it sparingly. For the rash, use the prescripti on the laborer filter plant prescribed for the itching , call if the rash is not improved. Torticollis - continue with physical therapy, call if the neck muscles do not continue to show improvement. 05/09/2011 Appointment: Karma Bahena WPtel: [address] [place] [address] Other 05/09/2011 Patient Education: Patient Medication Summary [...] water aerobics. 03/29/2011 Appointment: Karma Bahena WPtel: [address] [place] [address] [place] Other 03/29/2011 Patient Education: Patient Medication Summary Completed 03/29/2011 Appointment: Karma Bahena WPtel: [address] [place], [place] [phone] Other 03/17/2011 Visit Plan: UTI - UA negative. Urge incontinence- restart on the vesicare- at 5 mg. Continue to avoid caffinated foods/fluids. Peripheral Neuropathy - per senior software engineering manager report - Continue with the metanex. Loss of weight - WEIGHT CHECK IN 2 WKS. Palpitations- likely stress induced. If the symptoms worsen, call the office. 03/15/2011 Appointment: Karma Bahena WPtel: [address] [place], [place] [phone] Follow up 03/15/2011 Patient Education: Patient Medication [...] heart rate. Osteoarthritis - send pt to [facility] physical therapy for gereral osteoarhtritis program for [...] in symptoms, worsening redness, warmth, discharge. . Hypothyroidism - pt with chronic hypothyroidism, [...] blood pressure readings at home. Fstigue and lashonpnea- recommended cardiac rehab. . Hypothyroidism - pt [...] For the rash, use the prescription the laborer filter plant prescribed for the itching , call if [...] have the wax removed by irrigation. . LPP-kzkwq-vaj zpack-call if symptoms do not resolve or [...] avoid caffinated foods/fluids. Peripheral Neuropathy - per senior software engineering manager report - Continue with the metanex. [...] clinic with any changes, questions, or concerns. Bowel Regimen stool softener - four at [...] to go to the emergency room. . Cerumen Impaction - The impacted cerumen [...] compression and prn use of lasix . Cyst - epidermal cyst - pt [...] been given high dose flu shot today. Elevated digoxin level - pt was recommended [...] if their heart rate is becoming uncontrolled. RETURN FOR DRESSING CHANGE ON MONDAY . Laceration-right forearm- Pt was instructed to keep the wound clean, cleanse with sterile saline, use bactroban ointment, call if redness, pustular drainage, or any other acute concerns. Follow up Monday for dressing changes. . Atrial Fibrillation - pt on chronic [...] weight that was lost during hospitalization. . Edema - with Dyspnea - RX for laxis and compression socks - pt to call if not improving. . ua obtained, no need for culture at this time. . Rocephin 500mg IM . Wound Instructions - Pt was instruced to keep the wound clean, wash with antibacterial soap, use triple antibiotic ointment, call if redness, pustular drainage, or any other acute conerns. . Hematuria - check UA. Referral to [...] due to uncontrolled afib -continue to monitor Increase miralax to full dose daily. Constipation [...] symptoms not improved on this regimen. . Hypertension - well controlled - continue [...] their heart rate is becoming uncontrolled. . Hematuria-positive blood on UA today-plan to [...] to the pharmacy. continue with amlodipine. . Atrial Fibrillation - pt on chronic [...] daily for decrease in mucus in throat pt to have esr, crp, tsh, free [...] exposure,and dyspnea on exertion - will ask [place] [facility] Patient do an overnight oxygen study [...] their heart rate is becoming uncontrolled. . Cystocele and rectocele - pt assured of the lack of mass causing the obstruction, she has been advised to lay on bed to insert her medication or lean back on toilet seat to help decrease the pressure in her pelvis and thus hopefully aide the insertion of the medication vaginally. pt is to stop her omeprazole and [...] and will be called with report. . Afib -hyponatremia -generalized weakness -Dr Bahena [...] becoming uncontrolled. Low sodium -check level today . Atrial Fibrillation - pt on chronic [...] for INR is between 2.0 and 3.5. PT HAS BEEN INSTRUCTED TO START USING [...] change in blood pressure readings at home. IF HEART RATE UNDER 60 CONSISTENTLY TAKE [...] ureter removed in [place]- doing well OK TO RESTART VESICARE DAILY OK TO [...] the nasal steroid (nasacort) allergy spray. . Atrial Fibrillation - pt [...] the treatment when you get back from [place] - will also ask him about doing [...] for further work up-[facility]-Will keep patient NPO for [...] to call if symptoms do not improve. use simethicone four times daily - after [...] gas x-avoid gas forming foods-monitor symptoms . Medicare Exam - today we discussed [...]
[2019-01-07 08:08] LABS: CARBON DIOXIDE 21 MMOL/L (21-32); CHLORIDE 95 MMOL/L (98-107); CREATININE SERUM 0.82 MG/DL (0.60-1.30); POTASSIUM 4.4 MMOL/L (3.6-5.0); SODIUM 127 MMOL/L (135-145)
[2019-01-07 08:09] LABS: ALANINE AMINOTRANSFERASE 27 U/L (0-55); ALBUMIN 2.8 GM/DL (3.2-4.5); ALKALINE PHOSPHATASE 74 U/L (40-136); BILIRUBIN,TOTAL 0.7 MG/DL (0.1-1.0); BUN/CREATININE RATIO 17; CALCIUM 8.2 MG/DL (8.5-10.1); GFR ESTIMATED > 60; GLUCOSE 174 MG/DL (70-105); MAGNESIUM 1.8 MG/DL (1.8-2.4); TOTAL PROTEIN 5.9 GM/DL (6.4-8.2)
--- OUTSIDE RECORDS SUMMARY | 2019-01-07 08:15 | XMS REPORT | CCD ---
Author Author Laura Colin Organization Karma Bahena MD, [facility] Address [address] [place] [address] Phone Care Team Providers Care Sap Senior Developer Name Role Phone Karma Bahena PP Unavailable CCM Unavailable Summary Purpose Interface Exchange Insurance Providers Payer name Policy type / Coverage type Covered democrat ID Effective Begin Date Effective End Date WPS Medicare Part B Medicare Part B [id number] 2018 Unknown AARP Medicare Part B [id number] 2018 Unknown Family history Sister Diagnosis Age [...] Unknown House 03/15/[address]: 482455986 Never smoker 03/15/2011 Has the patient ever used illegal drugs? Unknown Has never used illegal drugs 03/15/2011 Allergies, Adverse Reactions, Alerts Substance Reaction Codes Entered Date Inactivated Date Status BACTINE RxNorm: 920722 03/04/2011 No Inactive Date Active MICONAZOLE RxNorm: 6932 03/04/2011 No Inactive Date Active NEOSPORIN RxNorm: 381314 03/04/2011 No Inactive Date Active NEOMYCIN RxNorm: 7299 03/04/2011 No Inactive Date Active CORTISPORIN RxNorm: 64789 03/04/2011 No Inactive Date Active bactrim RxNorm: 231357 03/13/2012 No Inactive Date Active AUGMENTIN diarrhea RxNorm: 597305 2016 No Inactive Date Active METRONIDAZOLE Unknown [...] 401.9 ICD-10: I10 Active 12/25/2013 Unknown 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 ICD-9: V58.83 ICD-10: Z79.899 [...] 706.2 ICD-10: L72.0 Active 02/01/2016 Unknown Other fpc (current) drug therapy ICD-9: V58.69 ICD-10: Z79.899 [...] ICD-9: 401.9 ICD-10: I10 12/25/2013 Active Other fpc (current) drug therapy ICD-9: V58.83 ICD-10: Z79.899 [...] ICD-9: 706.2 ICD-10: L72.0 02/01/2016 Active 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 ICD-9: V58.69 ICD-10: Z79.899 [...] 100 mg tablet,extended release 24 hr RxNorm: 232496 1 Tablet(s) PO daily 01/03/2019 09/29/2019 Active diltiazem ER 60 mg capsule,extended release 12 hr RxNorm: 307442 1 Capsule(s) PO Q12H 01/03/2019 No Stop Date Active Lasix 40 mg tablet RxNorm: 550747 1 Tablet(s) PO daily 01/03/2019 No Stop Date Active Lexapro 5 mg tablet RxNorm: 052809 1 Tablet(s) PO QPM 12/18/2018 01/02/2019 Inactive Lexapro 5 mg tablet RxNorm: 349032 1 Tablet(s) PO QPM 12/10/2018 12/17/2018 Inactive Keflex 500 mg capsule RxNorm: 961558 1 Capsule(s) PO TID 12/07/2018 12/13/2018 Inactive digoxin 125 mcg tablet RxNorm: 674842 Tablet(s) every other day 12/06/2018 11/30/2019 Active Keflex 500 mg capsule RxNorm: 360924 1 Capsule(s) PO TID 11/30/2018 12/06/2018 Inactive pantoprazole 40 mg tablet,delayed release RxNorm: 332550 1 TABLET(S) PO DAILY 11/29/2018 11/23/2019 Active amlodipine 5 mg tablet RxNorm: 098468 Tablet(s) 1/2 TABLET(S) PO DAILY MAY TAKE AN EXTRA 1/2 PILL AT THE END OF THE DAY IF BLOOD PRESSURE IS ELEVATED OVER 140 11/29/2018 01/02/2019 Inactive cyclobenzaprine 5 mg tablet RxNorm: 744663 1/2 Tablet(s) PO TID TABLET(S) 1/2 TABLET(S) PO Q8 NEEDED MUSCLE SPASMS 10/31/2018 04/28/2019 Active Imvexxy Starter Pack 4 mcg vaginal insert, dose pack RxNorm: 9573343 1 dose VAG BIW 10/31/2018 01/02/2019 Inactive Voltaren 1 % topical gel RxNorm: 609926 2 Gram(s) TOP QID on left shoulder and bilateral hands 10/17/2018 05/14/2019 Active PA APPROVED UNTIL JUL 09 2019 [id number] amlodipine 5 mg tablet RxNorm: 137764 1/2 TABLET(S) PO DAILY MAY TAKE AN EXTRA 1/2 PILL AT THE END OF THE DAY IF BLOOD PRESSURE IS ELEVATED OVER 140 10/15/2018 11/28/2018 Inactive Patient requests 90 days supply Voltaren 1 % topical gel RxNorm: 077825 2 Gram(s) TOP QID on left shoulder and bilateral hands 10/09/2018 10/16/2018 Inactive levothyroxine 75 mcg tablet RxNorm: 767059 1 Tablet(s) PO daily 09/19/2018 01/02/2019 Inactive Keflex 500 mg capsule RxNorm: 738985 1 Capsule(s) PO TID 09/12/2018 09/18/2018 Inactive spironolactone 25 mg tablet RxNorm: 695926 1 Tablet(s) PO BID 08/14/2018 11/06/2019 Active see new directions and quantity cyclobenzaprine 5 mg tablet RxNorm: 114746 Tablet(s) TABLET(S) 1/2 TABLET(S) PO Q8 NEEDED MUSCLE SPASMS 08/14/2018 10/30/2018 Inactive Nitro-Bid 2 % transdermal ointment RxNorm: 352125 1 dime size amount TD BID to fingers and toes 08/14/2018 09/12/2018 Inactive cyclobenzaprine 5 mg tablet RxNorm: 530690 TABLET(S) 1/2 TABLET(S) PO Q8 NEEDED MUSCLE SPASMS 08/06/2018 08/13/2018 Inactive amlodipine 5 mg tablet RxNorm: 107303 1/2 Tablet(s) PO daily may take an extra 1/2 pill at the end of the day if blood pressure is elevated over 140 07/26/2018 10/14/2018 Inactive cefdinir 300 mg capsule RxNorm: 094687 1 Capsule(s) PO BID 06/20/2018 06/26/2018 Inactive cefdinir 300 mg capsule RxNorm: 440109 1 Capsule(s) PO BID 06/20/2018 06/19/2018 Inactive metoprolol succinate ER 50 mg tablet,extended release 24 hr RxNorm: 233305 1.5 Tablet(s) daily 06/15/2018 01/02/2019 Inactive sucralfate 100 mg/mL oral suspension RxNorm: 215480 2 Teaspoon(s) PO TID as needed with reflux symptoms 06/04/2018 No Stop Date Active Vesicare 10 mg tablet RxNorm: 719419 1 TABLET(S) PO EVERY OTHER DAY 05/14/2018 01/02/2019 Inactive levothyroxine 50 mcg tablet RxNorm: 556612 1 TABLET(S) PO DAILY 04/30/2018 09/18/2018 Inactive Patient requests 90 days supply spironolactone 25 mg tablet RxNorm: 160056 1 Tablet(s) PO daily 03/14/2018 08/13/2018 Inactive levothyroxine 50 mcg tablet RxNorm: 885051 1 Tablet(s) PO daily 02/01/2018 04/29/2018 Inactive Eliquis 2.5 mg tablet RxNorm: 6132410 1 Tablet(s) PO BID 01/31/2018 02/20/2018 Inactive levothyroxine 50 mcg tablet RxNorm: 728623 1 Tablet(s) PO daily 01/31/2018 01/31/2018 Inactive Eliquis 2.5 mg tablet RxNorm: 7970121 TAKE 1 TABLET BY MOUTH TWICE DAILY 01/23/2018 07/21/2018 Inactive metoprolol succinate ER 50 mg tablet,extended release 24 hr RxNorm: 180818 1 TABLET(S) PO DAILY 01/23/2018 01/30/2018 Inactive metoprolol succinate ER 50 mg tablet,extended release 24 hr RxNorm: 079680 1.5 Tablet(s) daily 01/22/2018 06/14/2018 Inactive lisinopril 20 mg tablet RxNorm: 844716 1/2 Tablet(s) daily 01/19/2018 01/21/2018 Inactive Patient requests 90 days supply Singulair 10 mg tablet RxNorm: 532341 TAKE 1 TABLET BY MOUTH AT BEDTIME 01/18/2018 04/17/2018 Inactive Patient requests 90 days supply Singulair 10 mg tablet RxNorm: 184944 Tablet(s) PO 01/17/2018 01/17/2018 Inactive digoxin 125 mcg tablet RxNorm: 212035 1 TABLET(S) PO DAILY 01/03/2018 12/05/2018 Inactive Symbicort 160 mcg-4.5 mcg/actuation HFA aerosol inhaler RxNorm: 4419266 2 Puff(s) INH BID 12/14/2017 04/12/2018 Inactive please dispense an aerochamber for patient as well as her symbicort cyclobenzaprine 5 mg tablet RxNorm: 659364 Tablet(s) 1/2 TABLET(S) PO Q8 NEEDED MUSCLE SPASMS 12/14/2017 08/05/2018 Inactive pantoprazole 40 mg tablet,delayed release RxNorm: 223913 1 Tablet(s) PO daily 12/14/2017 11/28/2018 Inactive ProAir RespiClick 90 mcg/actuation breath activated RxNorm: 8246884 1-2 INH QID as needed shortness of breath 12/14/2017 07/11/2018 Inactive cyclobenzaprine 5 mg tablet RxNorm: 146309 1/2 TABLET(S) PO Q8 NEEDED MUSCLE SPASMS 12/08/2017 12/13/2017 Inactive betamethasone dipropionate 0.05 % topical ointment RxNorm: 257290 1 Application TOP TID use topically on the rectal tissue three times daily x 1 week then as needed 11/13/2017 01/02/2019 Inactive Premarin 0.625 mg/gram vaginal cream RxNorm: 806926 1/2 GRAM(S) VAG TIW 11/13/2017 10/30/2018 Inactive cyclobenzaprine 5 mg tablet RxNorm: 896124 1/2 TABLET(S) PO Q8 NEEDED MUSCLE SPASMS 10/17/2017 12/07/2017 Inactive Vesicare 10 mg tablet RxNorm: 154204 1 Tablet(s) PO every other day 10/17/2017 04/14/2018 Inactive lisinopril 20 mg tablet RxNorm: 165775 1 TABLET(S) PO DAILY 10/02/2017 01/18/2018 Inactive Patient requests 90 days supply levothyroxine 75 mcg tablet RxNorm: 099494 1 TABLET(S) PO DAILY 09/25/2017 01/30/2018 Inactive spironolactone 25 mg tablet RxNorm: 861112 1 TABLET(S) PO DAILY 08/16/2017 03/13/2018 Inactive cyclobenzaprine 5 mg tablet RxNorm: 230301 1/2 TABLET(S) PO Q8 NEEDED MUSCLE SPASMS 08/16/2017 10/16/2017 Inactive Eliquis 2.5 mg tablet RxNorm: 1594556 TAKE 1 TABLET BY MOUTH TWICE DAILY 07/26/2017 01/21/2018 Inactive cyclobenzaprine 5 mg tablet RxNorm: 576369 1/2 Tablet(s) PO Q8 as needed muscle spasms 06/19/2017 08/15/2017 Inactive lisinopril 20 mg tablet RxNorm: 345574 1 TABLET(S) PO DAILY 06/12/2017 10/01/2017 Inactive metoprolol succinate ER 50 mg tablet,extended release 24 hr RxNorm: 072153 1 TABLET(S) PO DAILY 04/07/2017 01/01/2018 Inactive spironolactone 25 mg tablet RxNorm: 070928 1 Tablet(s) PO daily 03/27/2017 03/13/2018 Inactive acyclovir 800 mg tablet RxNorm: 486106 1 Tablet(s) PO TID 03/21/2017 03/30/2017 Inactive acyclovir 800 mg tablet RxNorm: 986365 1 Tablet(s) PO TID 03/21/2017 03/20/2017 Inactive levothyroxine 75 mcg tablet RxNorm: 658522 1 Tablet(s) PO daily 03/16/2017 09/11/2017 Inactive spironolactone 25 mg tablet RxNorm: 023353 1 TABLET(S) PO DAILY 02/09/2017 03/26/2017 Inactive lisinopril 20 mg tablet RxNorm: 162615 1 TABLET(S) PO DAILY 01/02/2017 05/31/2017 Inactive Zithromax Z-Claudio 250 mg tablet RxNorm: 695289 1 Tablet(s) PO UD 11/29/2016 12/03/2016 Inactive ZPACK Keflex 500 mg capsule RxNorm: 486061 1 Capsule(s) PO TID 11/23/2016 12/02/2016 Inactive guaifenesin 400 mg tablet RxNorm: 065149 1 Tablet(s) PO Q6 as needed 11/23/2016 11/27/2016 Inactive omeprazole 40 mg capsule,delayed release RxNorm: 344034 1 Capsule(s) PO QPM 11/02/2016 12/13/2017 Inactive digoxin 125 mcg tablet RxNorm: 508225 1 TABLET(S) PO DAILY 10/27/2016 07/23/2017 Inactive cyclobenzaprine 5 mg tablet RxNorm: 978143 1/2 Tablet(s) PO Q8 PRN 10/25/2016 06/18/2017 Inactive prn muscle spasms Augmentin 500 mg-125 mg tablet RxNorm: 618644 1 Tablet(s) PO BID 10/24/2016 11/02/2016 Inactive spironolactone 25 mg tablet RxNorm: 367098 1 Tablet(s) PO daily 07/27/2016 02/08/2017 Inactive Lasix 20 mg tablet RxNorm: 595556 Tablet(s) PRN one to two times a week if needed 07/27/2016 01/02/2019 Inactive Patient requests 90 days supply Diflucan 150 mg tablet RxNorm: 817837 1 Tablet(s) PO daily 07/27/2016 08/02/2016 Inactive lisinopril 20 mg tablet RxNorm: 217744 1 Tablet(s) PO daily 07/12/2016 01/01/2017 Inactive Lasix 20 mg tablet RxNorm: 710932 1 TABLET(S) PO EVERY OTHER DAY EVERY OTHER DAY 06/10/2016 07/26/2016 Inactive Patient requests 90 days supply potassium chloride ER 10 mEq capsule,extended release RxNorm: 777800 1 CAPSULE(S) PO EVERY OTHER DAY 06/10/2016 07/26/2016 Inactive Patient requests 90 days supply potassium chloride ER 10 mEq capsule,extended release RxNorm: 711681 1 Capsule(s) PO every other day 06/09/2016 06/09/2016 Inactive Lasix 20 mg tablet RxNorm: 379391 1 Tablet(s) PO every other day every other day 06/09/2016 06/09/2016 Inactive levothyroxine 88 mcg tablet RxNorm: 717016 1 Tablet(s) PO daily 05/11/2016 11/06/2016 Inactive Premarin 0.625 mg/gram vaginal cream RxNorm: 828306 1/2 Gram(s) VAG TIW 03/24/2016 03/18/2017 Inactive metoprolol succinate ER 50 mg tablet,extended release 24 hr RxNorm: 909763 1 Tablet(s) PO daily 03/24/2016 03/18/2017 Inactive pantoprazole 40 mg tablet,delayed release RxNorm: 251067 1 Tablet(s) PO daily 02/08/2016 11/01/2016 Inactive betamethasone dipropionate 0.05 % topical ointment RxNorm: 354110 1 Application TOP TID use topically on the rectal tissue three times daily x 1 week then as needed 02/02/2016 11/12/2017 Inactive pantoprazole 40 mg tablet,delayed release RxNorm: 176378 1 Tablet(s) PO daily 2016 02/07/2016 Inactive alprazolam 0.25 mg tablet RxNorm: 861428 1 Tablet(s) PO Q6 as needed 12/04/2015 01/02/2019 Inactive Vesicare 10 mg tablet RxNorm: 722890 1 Tablet(s) PO every other day 11/03/2015 10/16/2017 Inactive alprazolam 0.25 mg tablet RxNorm: 865581 1 Tablet(s) PO Q6 as needed 11/03/2015 12/03/2015 Inactive Premarin 0.625 mg/gram vaginal cream RxNorm: 865415 1/2 Gram(s) VAG TIW 11/03/2015 03/23/2016 Inactive levothyroxine 88 mcg tablet RxNorm: 112168 1 Tablet(s) PO daily 11/03/2015 05/10/2016 Inactive Diflucan 150 mg tablet RxNorm: 391907 1 Tablet(s) PO daily 10/19/2015 10/25/2015 Inactive cetirizine 10 mg chewable tablet RxNorm: 1706982 1 Tablet(s) PO daily 10/13/2015 11/11/2015 Inactive cetirizine 10 mg capsule RxNorm: 4841196 1 Capsule(s) PO daily 10/13/2015 11/11/2015 Inactive Vesicare 10 mg tablet RxNorm: 405778 1/2 TABLET(S) PO BID 09/21/2015 11/02/2015 Inactive betamethasone dipropionate 0.05 % topical ointment RxNorm: 057474 1 Application TOP TID use topically on the rectal tissue three times daily x 1 week then as needed 09/15/2015 02/01/2016 Inactive lisinopril 20 mg tablet RxNorm: 434028 1 Tablet(s) PO daily 09/01/2015 07/11/2016 Inactive digoxin 125 mcg tablet RxNorm: 915860 1 Tablet(s) PO daily 09/01/2015 08/25/2016 Inactive Augmentin 500 mg-125 mg tablet RxNorm: 758423 1 Tablet(s) PO TID 05/26/2015 06/04/2015 Inactive Pyridium 200 mg tablet RxNorm: 9127064 1 Tablet(s) PO TID 05/26/2015 05/27/2015 Inactive levothyroxine 88 mcg tablet RxNorm: 766390 1 Tablet(s) PO daily except 1/2 pill on monday and 05/07/2015 11/02/2015 Inactive digoxin 125 mcg tablet RxNorm: 274187 1 Tablet(s) PO daily 05/07/2015 08/31/2015 Inactive lisinopril 20 mg tablet RxNorm: 711681 1 TABLET(S) PO BID 04/13/2015 09/01/2015 Inactive Coumadin 1 mg tablet RxNorm: 171984 1 TABLET(S) PO DAILY 03/31/2015 08/31/2015 Inactive Coumadin 2 mg tablet RxNorm: 327311 4MG IN AM AND 1MG AT NIGHT TABLET(S) PO DAILY DIRECTED. 03/31/2015 08/31/2015 Inactive levothyroxine 88 mcg tablet RxNorm: 122219 1 Tablet(s) PO daily 03/23/2015 05/06/2015 Inactive alprazolam 0.25 mg tablet RxNorm: 979922 Tablet(s) PO 03/23/2015 04/06/2015 Inactive levothyroxine 88 mcg tablet RxNorm: 252370 1 Tablet(s) PO daily 01/28/2015 03/22/2015 Inactive levothyroxine 88 mcg tablet RxNorm: 673180 1 Tablet(s) PO daily 01/28/2015 01/27/2015 Inactive diltiazem ER 120 mg capsule,extended release RxNorm: 863555 1 Capsule(s) PO BID patient would like 4 months at a time 01/06/2015 09/28/2015 Inactive digoxin 125 mcg tablet RxNorm: 939432 Tablet(s) 1 TABLET(S) PO DAILY 12/24/2014 12/23/2014 Inactive pt will be paying palomares (On $4 list)Patient requests 90 days supply digoxin 125 mcg tablet RxNorm: 284515 Tablet(s) 1 TABLET(S) PO DAILY M W F Sat and 2 tabs on T 12/24/2014 05/06/2015 Inactive pt will be paying palomares (On $4 list)Patient requests 90 days supply dicyclomine 20 mg tablet RxNorm: 835438 1 Tablet(s) PO daily 11/17/2014 08/31/2015 Inactive one ac dinner and up to tid prn levothyroxine 88 mcg tablet RxNorm: 500730 1 Tablet(s) PO daily 11/03/2014 01/27/2015 Inactive Premarin 0.625 mg/gram vaginal cream RxNorm: 261232 1 APPLICATION VAG 1 APPLICATOR PER VAGINA 3 TIMES PER WEEK 11/03/2014 07/30/2015 Inactive digoxin 125 mcg tablet RxNorm: 732612 1 TABLET(S) PO DAILY 09/29/2014 12/23/2014 Inactive pt will be paying palomares (On $4 list)Patient requests 90 days supply digoxin 125 mcg tablet RxNorm: 948624 1 TABLET(S) PO DAILY 07/11/2014 04/06/2015 Inactive Vesicare 10 mg tablet RxNorm: 696285 1/2 Tablet(s) PO BID 05/20/2014 05/14/2015 Inactive Levaquin 500 mg tablet RxNorm: 873183 1 Tablet(s) PO daily 05/06/2014 05/08/2014 Inactive take probiotic BID while on ABT Levaquin 500 mg tablet RxNorm: 508578 1 Tablet(s) PO daily 05/02/2014 05/05/2014 Inactive take probiotic BID while on ABT diltiazem ER 120 mg capsule,extended release RxNorm: 341050 1 Capsule(s) PO BID patient would like 4 months at a time 04/29/2014 2015 Inactive Vesicare 10 mg tablet RxNorm: 511044 1/2 Tablet(s) PO BID 04/29/2014 05/19/2014 Inactive lisinopril 20 mg tablet RxNorm: 948532 1 Tablet(s) PO BID 03/20/2014 03/14/2015 Inactive diltiazem 90 mg tablet RxNorm: 437477 1/2 TABLET(S) PO QPM 03/04/2014 04/28/2014 Inactive also 180 q am diltiazem ER 120 mg capsule,extended release RxNorm: 803269 1 Capsule(s) PO daily patient would like 4 months at a time 01/29/2014 04/28/2014 Inactive Vesicare 10 mg tablet RxNorm: 948947 1 Tablet(s) PO QHS 01/14/2014 04/28/2014 Inactive Coumadin 2 mg tablet RxNorm: 911184 4mg in AM and 1mg at night Tablet(s) PO daily as directed. 12/25/2013 03/30/2015 Inactive Metanx 3 mg-35 mg-2 mg tablet RxNorm: 1 Tablet(s) PO daily 12/25/2013 11/02/2015 Inactive digoxin 125 mcg tablet RxNorm: 891570 1 Tablet(s) PO daily 12/25/2013 09/28/2014 Inactive pt will be paying palomares (On $4 list) Coumadin 2 mg tablet RxNorm: 204922 7.5 wed 5mg other Tablet(s) PO as directed. 12/03/2013 12/24/2013 Inactive omeprazole 20 mg tablet,delayed release RxNorm: 536976 1 Tablet(s) PO BID 11/27/2013 04/28/2014 Inactive Coumadin 2 mg tablet RxNorm: 344514 5 mg daily Tablet(s) PO as directed. 11/26/2013 12/02/2013 Inactive 5 mg daily Xanax 0.25 mg tablet RxNorm: 359797 1 Tablet(s) PO Q6 PRN 11/11/2013 12/25/2013 Inactive alprazolam 0.25 mg tablet RxNorm: 517560 tablet oral 11/11/2013 03/22/2015 Inactive sucralfate 1 gram tablet RxNorm: 152650 1 Tablet(s) PO AC & HS 11/04/2013 11/03/2013 Inactive sucralfate 1 gram tablet RxNorm: 726870 1 Tablet(s) PO AC & HS 11/04/2013 01/02/2014 Inactive Synthroid 100 mcg tablet RxNorm: 178030 1 Tablet(s) PO daily 10/31/2013 10/25/2014 Inactive Synthroid 100 mcg tablet RxNorm: 465908 1 Tablet(s) PO daily 09/30/2013 10/29/2013 Inactive Vesicare 10 mg tablet RxNorm: 904650 1 Tablet(s) PO QHS 09/30/2013 01/13/2014 Inactive Lotemax 0.5 % eye ointment RxNorm: 0388368 ointment opht 09/06/2013 12/10/2013 Inactive levothyroxine 100 mcg tablet RxNorm: 695614 tablet oral 09/05/2013 11/02/2014 Inactive Synthroid 100 mcg tablet RxNorm: 045764 1 Tablet(s) PO daily 09/05/2013 09/29/2013 Inactive Prolia 60 mg/mL Sub-Q Syringe RxNorm: 411295 1 Milliliter(s) SQ 06/25/2013 11/02/2015 Inactive dicyclomine 20 mg tablet RxNorm: 514900 1 Tablet(s) PO daily 06/24/2013 06/18/2014 Inactive one ac dinner and up to tid prn omeprazole 20 mg tablet,delayed release RxNorm: 452023 1 Tablet(s) PO BID 06/24/2013 11/26/2013 Inactive Cipro 500 mg tablet RxNorm: 855034 1 Tablet(s) PO BID 06/20/2013 06/26/2013 Inactive diltiazem ER 120 mg capsule,extended release RxNorm: 724682 1 Capsule(s) PO daily patient would like 4 months at a time 06/03/2013 01/28/2014 Inactive Coumadin 2 mg tablet RxNorm: 741243 as directed Tablet(s) PO as directed. 05/29/2013 11/25/2013 Inactive 5 mg daily Synthroid 88 mcg tablet RxNorm: 774877 1 Tablet(s) PO daily 04/24/2013 04/23/2013 Inactive Synthroid 88 mcg tablet RxNorm: 669374 1 Tablet(s) PO daily 04/24/2013 07/28/2013 Inactive Premarin 0.625 mg/gram vaginal cream RxNorm: 648056 1 Application VAG 1 applicator per vagina 3 times per week 04/23/2013 04/17/2014 Inactive Influenza Virus Vaccine 0.5 mL RxNorm: IM 04/23/2013 04/23/2013 Inactive digoxin 125 mcg tablet RxNorm: 198313 1 Tablet(s) PO daily 02/20/2013 04/20/2013 Inactive pt will be paying palomares (On $4 list) Digox 125 mcg tablet RxNorm: 1986384 tablet oral 02/13/2013 03/20/2014 Inactive digoxin 125 mcg tablet RxNorm: 285214 1 Tablet(s) PO daily 02/13/2013 02/19/2013 Inactive diltiazem 90 mg tablet RxNorm: 037433 1/2 Tablet(s) PO QPM 02/13/2013 02/07/2014 Inactive also 180 q am Levoxyl 75 mcg tablet RxNorm: 784839 1 Tablet(s) PO 01/16/2013 04/23/2013 Inactive Coumadin 2 mg tablet RxNorm: 711325 6mg daily except 3mg on wed and mon Tablet(s) PO 01/15/2013 05/28/2013 Inactive 5 mg daily Coumadin 2 mg tablet RxNorm: 732442 6mg daily Tablet(s) PO 12/21/2012 01/14/2013 Inactive 5 mg daily silver sulfadiazine 1 % Topical Cream RxNorm: 522887 TOP apply to affected area with each dressing change 12/19/2012 12/25/2013 Inactive cephalexin 500 mg tablet RxNorm: 985183 1 Tablet(s) PO TID 12/11/2012 12/17/2012 Inactive digoxin 125 mcg tablet RxNorm: 980127 1 Tablet(s) PO daily 10/30/2012 02/12/2013 Inactive digoxin 125 mcg tablet RxNorm: 109084 2 tab tue thurs one other days Tablet(s) PO daily 10/23/2012 10/29/2012 Inactive lisinopril 10 mg tablet RxNorm: 342324 1 Tablet(s) PO daily 10/17/2012 08/14/2013 Inactive Cipro 500 mg tablet RxNorm: 331516 1 Tablet(s) PO BID 09/13/2012 09/19/2012 Inactive Coumadin 1 mg tablet RxNorm: 839777 1 Tablet(s) PO daily 09/03/2012 09/02/2012 Inactive Coumadin 1 mg tablet RxNorm: 283462 1 Tablet(s) PO daily 09/03/2012 12/21/2012 Inactive Coumadin 2 mg tablet RxNorm: 598276 Tablet(s) PO 07/25/2012 12/20/2012 Inactive 5 mg daily digoxin 125 mcg tablet RxNorm: 076002 1 Tablet(s) PO daily 06/28/2012 10/22/2012 Inactive Coumadin 2 mg tablet RxNorm: 598538 Tablet(s) PO 06/27/2012 07/24/2012 Inactive 5mg daily except 4mg on monday Coumadin 2 mg tablet RxNorm: 254177 Tablet(s) PO 06/19/2012 06/26/2012 Inactive 5mg tue wed thur sat sun4mg mon frid(has 2mg and 1 mg tab) digoxin 125 mcg tablet RxNorm: 430482 1 Tablet(s) PO daily 05/29/2012 06/27/2012 Inactive Coumadin 2 mg tablet RxNorm: 290714 Tablet(s) PO 05/15/2012 06/18/2012 Inactive 5mg tue thur sat sun4mg mon frid(has 2mg and 1 mg tab) Coumadin 2 mg tablet RxNorm: 853456 Tablet(s) PO 04/25/2012 05/14/2012 Inactive 5mg tue thru sat4mg mon frid sun(has 2mg and 1 mg tab) Metanx 3 mg-35 mg-2 mg tablet RxNorm: 1 Tablet(s) PO BID 04/18/2012 12/24/2013 Inactive dicyclomine 20 mg tablet RxNorm: 447576 1 Tablet(s) PO 04/18/2012 06/23/2013 Inactive one ac dinner and up to tid prn digoxin 125 mcg tablet RxNorm: 562585 Tablet(s) PO daily except .25 on Tuesdays and 04/09/2012 05/28/2012 Inactive omeprazole 20 mg tablet,delayed release RxNorm: 911141 1 Tablet(s) PO BID 04/09/2012 04/03/2013 Inactive digoxin 125 mcg tablet RxNorm: 692450 1 Tablet(s) PO UD daily except none on Tuesdays and 03/13/2012 04/08/2012 Inactive Premarin 0.625 mg/gram Vaginal Cream RxNorm: 785965 1 Application VAG 1 applicator per vagina 3 times per week 02/20/2012 02/13/2013 Inactive omeprazole 20 mg tablet,delayed release RxNorm: 552674 1 Tablet(s) PO BID 02/13/2012 04/08/2012 Inactive Vesicare 10 mg tablet RxNorm: 979858 1 Tablet(s) PO QHS 02/13/2012 02/06/2013 Inactive Diflucan 150 mg tablet RxNorm: 981164 1 Tablet(s) PO daily 02/13/2012 02/19/2012 Inactive omeprazole 20 mg tablet,delayed release RxNorm: 621670 1 Tablet(s) PO BID 01/06/2012 02/12/2012 Inactive Calcium 600 + D(3) 600 mg (1,500)-200 unit Tab RxNorm: 953806 2 Tablet(s) PO BID 01/06/2012 08/31/2015 Inactive diltiazem 90 mg tablet RxNorm: 524517 1/2 Tablet(s) PO QPM 12/26/2011 02/12/2013 Inactive also 180 q am diltiazem ER 180 mg Cap RxNorm: 344208 1 Capsule(s) PO QAM 12/26/2011 04/08/2012 Inactive 45mg q hs Flagyl 500 mg Tab RxNorm: 952842 1 Tablet(s) PO BID 12/14/2011 12/20/2011 Inactive dicyclomine 10 mg Cap RxNorm: 418149 1 Capsule(s) PO AC & HS 12/01/2011 12/25/2011 Inactive Levaquin 500 mg Tab RxNorm: 396003 1 Tablet(s) PO daily 11/23/2011 11/29/2011 Inactive Rocephin 500 mg Solution for Injection RxNorm: 5228907 Inj 11/23/2011 11/23/2011 Inactive acyclovir 400 mg Tab RxNorm: 106354 1 Tablet(s) PO QID 11/10/2011 11/19/2011 Inactive acyclovir 400 mg Tab RxNorm: 026142 1 Tablet(s) PO QID 11/10/2011 11/09/2011 Inactive lisinopril 20 mg Tab RxNorm: 274217 1 Tablet(s) PO daily 10/03/2011 11/27/2011 Inactive lisinopril 20 mg Tab RxNorm: 716429 1 Tablet(s) PO daily 08/08/2011 10/02/2011 Inactive Reclast 5 mg/100 mL IV RxNorm: 511777 Milliliter(s) IV Yearly 06/08/2011 01/16/[address] Hansen managebrad Rocephin 500 mg Solution for Injection RxNorm: 7427361 1 Milliliter(s) Inj 03/04/2011 08/08/2011 Inactive Ceftin 500 mg Tab RxNorm: 025357 1 Tablet(s) PO BID 03/04/2011 08/08/2011 Inactive Zyrtec 10 mg tablet RxNorm: 6607600 1 Tablet(s) PO daily No Start Date Active Vitamin D3 1,000 unit tablet RxNorm: 022404 2 Tablet(s) PO daily No Start Date Active duloxetine 20 mg capsule,delayed release RxNorm: 180674 1 Capsule(s) PO daily No Start Date Active Stool Softener 100 mg tablet RxNorm: 2700711 2 Tablet(s) PO QHS No Start Date Active Beano tablet RxNorm: 2-3 Tablet(s) PO as needed No Start Date Active ipratropium-albuterol 0.5 mg-3 mg(2.5 mg base)/3 mL nebulization soln RxNorm: 9044675 1 INH TID No Start Date Active Probiotic Pearls 15 mg (1 billion cell) capsule,delayed release RxNorm: 1 Capsule(s) PO daily No Start Date Active loperamide 2 mg tablet RxNorm: 717913 1 Tablet(s) PO as needed diarrhea No Start Date Active Miralax 17 gram oral powder packet RxNorm: 470350 1/2 packet PO QHS No Start Date Active multivitamin Tab RxNorm: 1 Tablet(s) PO daily No Start Date Active Tylenol Extra Strength 500 mg tablet RxNorm: 649269 2 Tablet(s) PO as needed No Start Date Active magnesium 500 mg tablet RxNorm: 1 Tablet(s) PO daily No Start Date Active Combigan 0.2 %-0.5 % eye drops RxNorm: 403990 1 Drop(s) OPH BID No Start Date Active 1 drop twice daily left eye Tatiana Allergy 180 mg tablet RxNorm: 972398 1 Tablet(s) PO daily No Start Date Active simethicone 125 mg tablet RxNorm: 899749 1 Tablet(s) PO as needed No Start Date Active potassium chloride 20 mEq oral packet RxNorm: 7432347 1 Tablet(s) PO daily No Start Date Active lorazepam 0.5 mg tablet RxNorm: 1/2 Tablet(s) PO QHS No Start Date Active 1/2 tab daily and every 6 hours prn anxiety ProAir RespiClick 90 mcg/actuation breath activated RxNorm: 0390832 2 INH as needed No Start Date Active levothyroxine 75 mcg tablet RxNorm: 116416 1 Tablet(s) PO daily No Start Date Active Lotemax 0.5 % eye drops,suspension RxNorm: 234089 1 Drop(s) OPH right eye BID No Start Date Active sodium chloride 1 gram tablet RxNorm: 485143 1 Tablet(s) PO daily No Start Date Active Levoxyl 50 mcg tablet RxNorm: 567952 1 Tablet(s) PO daily No Start Date 01/15/2013 Inactive lisinopril-hydrochlorothiazide 20 mg-25 mg Tab RxNorm: 699312 1 Tablet(s) PO daily No Start Date 08/07/2011 Inactive Metanx 3 mg-35 mg-2 mg tablet RxNorm: 1 Tablet(s) PO daily No Start Date 04/17/2012 Inactive diltiazem CD 120 mg capsule,extended release 24 hr RxNorm: 161090 1 Capsule(s) PO daily No Start Date 09/28/2015 Inactive lisinopril 20 mg tablet RxNorm: 906259 Tablet(s) PO No Start Date Active Lumigan 0.01 % Eye Drops RxNorm: 3179924 1 Drop(s) OPH daily Left eye No Start Date 12/10/2013 Inactive prednisolone acetate 1 % Eye Drops, Susp RxNorm: 5153392 1 Drop(s) OPH BID 1 drop right eye am and hs No Start Date 11/02/2015 Inactive Eliquis 5 mg tablet RxNorm: 7160329 1 Tablet(s) PO BID No Start Date 06/08/2016 Inactive potassium gluconate (bulk) Misc RxNorm: Miscellaneous No Start Date 12/25/2011 Inactive Calcium 600 + D(3) 600 mg (1,500)-200 unit Tab RxNorm: 097355 3 Tablet(s) PO daily No Start Date 2012 Inactive Zyrtec 10 mg tablet RxNorm: 7523007 1 Tablet(s) PO daily No Start Date 08/02/2016 Inactive Synthroid 100 mcg tablet RxNorm: 352668 1 Tablet(s) PO daily No Start Date 09/04/2013 Inactive metoprolol succinate ER 50 mg tablet,extended release 24 hr RxNorm: 414701 1 Tablet(s) PO daily No Start Date 03/23/2016 Inactive Carafate 100 mg/mL oral suspension RxNorm: 416284 2 Teaspoon(s) PO as needed with reflux symptoms No Start Date 06/03/2018 Inactive Metanx 3 mg-35 mg-2 mg tablet RxNorm: 1 Tablet(s) PO daily 2pm No Start Date 11/02/2015 Inactive Lexapro 5 mg tablet RxNorm: 097382 1 Tablet(s) PO daily No Start Date 08/18/2015 Inactive Iron (dried) oral RxNorm: 22324 oral No Start Date 11/02/2015 Inactive timolol 0.5 % Eye Drops RxNorm: 387353 1 Drop(s) OPH daily left eye No Start Date 12/18/2013 Inactive multivitamin Cap RxNorm: 1 Capsule(s) PO daily No Start Date 12/25/2011 Inactive dicyclomine 10 mg Cap RxNorm: 316309 2 Capsule(s) PO daily No Start Date 11/30/2011 Inactive diltiazem 30 mg tablet RxNorm: 433008 1 Tablet(s) PO Q6 No Start Date 01/02/2019 Inactive silver sulfadiazine 1 % Topical Cream RxNorm: 041953 TOP apply to affected area with each dressing change No Start Date 12/18/2012 Inactive magnesium oxide 400 mg Tab RxNorm: 252309 1 Tablet(s) PO daily No Start Date 11/02/2015 Inactive Pradaxa 75 mg Cap RxNorm: 6769903 1 Capsule(s) PO BID No Start Date 04/09/2012 Inactive magnesium oxide 400 mg Tab RxNorm: 132047 2 Tablet(s) PO daily magnesium plus zinc No Start Date 12/25/2011 Inactive biotin 1000 mg RxNorm: 1 PO daily No Start Date 12/25/2011 Inactive Synthroid 50 mcg Tab RxNorm: 354727 Tablet(s) PO No Start Date 12/25/2011 Inactive diltiazem ER 180 mg Cap RxNorm: 908327 1 Capsule(s) PO daily No Start Date 12/25/2011 Inactive Lipitor 10 mg tablet RxNorm: 172481 1 Tablet(s) PO daily No Start Date 01/02/2019 Inactive 1 D 3 1000 iu Oral RxNorm: Oral No Start Date 12/25/2011 Inactive Coumadin 2 mg tablet RxNorm: 544486 Tablet(s) PO No Start Date 04/24/2012 Inactive 5mg tue [id number] mon fri sat sun(has 2mg and 1 mg tab) dicyclomine 20 mg tablet RxNorm: 001801 Tablet(s) PO No Start Date 04/17/2012 Inactive one ac dinner and up to tid prn lactobacillus acidophilus tablet RxNorm: 1 Tablet(s) PO daily No Start Date 11/03/2015 Inactive Eliquis 2.5 mg tablet RxNorm: 2257663 1 Tablet(s) PO BID No Start Date 07/25/2017 Inactive Levoxyl 75 mcg Tab RxNorm: 252253 1 Tablet(s) PO daily No Start Date 10/02/2011 Inactive digoxin 125 mcg tablet RxNorm: 367966 1 Tablet(s) PO daily No Start Date 03/12/2012 Inactive pantoprazole 40 mg tablet,delayed release RxNorm: 460983 1 Tablet(s) PO BID No Start Date 01/04/2016 Inactive cyclobenzaprine 5 mg tablet RxNorm: 706725 1/2 Tablet(s) PO Q8 PRN No Start Date 10/24/2016 Inactive diltiazem 90 mg Tab RxNorm: 582549 1/2 Tablet(s) PO QPM No Start Date 12/25/2011 Inactive Mirapex 1 mg Tab RxNorm: 139565 1 Tablet(s) PO QHS No Start Date 12/25/2011 Inactive Xanax 0.25 mg tablet RxNorm: 763425 1 Tablet(s) PO Q6 PRN No Start Date 11/10/2013 Inactive Lexapro 5 mg tablet RxNorm: 988353 1 Tablet(s) PO daily No Start Date 01/02/2019 Inactive Premarin 0.625 mg/gram Vaginal Cream RxNorm: 080940 1 Application VAG 1 applicator per vagina 3 times per week No Start Date 02/19/2012 Inactive Synthroid 75 mcg Tab RxNorm: 317132 1 Tablet(s) PO daily No Start Date 04/17/2012 Inactive lisinopril 40 mg Tab RxNorm: 162469 1 Tablet(s) PO daily No Start Date 12/25/2011 Inactive Glucosamine Chondroitin Complex Advanced [id number]-1.65mg Tab RxNorm: 2 Tablet(s) PO daily No Start Date 08/08/2011 Inactive famotidine 20 mg tablet RxNorm: 536007 1 Tablet(s) PO QAM No Start Date 11/02/2015 Inactive cranberry extract 250 mg Tab RxNorm: 447145 2 Tablet(s) PO daily No Start Date 08/08/2011 Inactive Vitamin D3 1,000 unit capsule RxNorm: 797339 1 Capsule(s) PO daily No Start Date 08/31/2015 Inactive aspirin 81 mg Tab, Delayed Release RxNorm: 748376 1 Tablet(s) PO daily No Start Date 08/31/2015 Inactive diltiazem ER 120 mg capsule,extended release RxNorm: 910075 1 Capsule(s) PO daily patient would like 4 months at a time No Start Date 06/02/2013 Inactive omeprazole 20 mg Tab, Delayed Release RxNorm: 317432 2 Tablet(s) PO QHS No Start Date 2012 Inactive lisinopril 10 mg tablet RxNorm: 387018 1/2 Tablet(s) PO daily No Start Date 10/16/2012 Inactive Pred Forte 1 % Eye Drops RxNorm: 278372 1 Drop(s) OPH daily right eye No Start Date 12/25/2013 Inactive calcium carbonate 400 mg Chewable Tab RxNorm: 997044 1 Tablet(s) PO daily No Start Date 08/08/2011 Inactive Vesicare 10 mg tablet RxNorm: 049192 1 Tablet(s) PO QHS No Start Date 02/12/2012 Inactive Symbicort 160 mcg-4.5 mcg/actuation HFA aerosol inhaler RxNorm: 2761685 2 Puff(s) INH BID No Start Date 12/13/2017 Inactive potassium 99 mg tablet RxNorm: 1 Tablet(s) PO QPM No Start Date 12/25/2013 Inactive timolol 0.25 % Eye Drops RxNorm: 290317 1 Drop(s) OPH daily Left eye No Start Date 04/17/2012 Inactive diltiazem ER 90 mg capsule,extended release 12 hr RxNorm: 441106 1/2 Capsule(s) PO QPM No Start Date 04/28/2014 Inactive cyclobenzaprine 5 mg Tab RxNorm: 939788 1/2-1 Tablet(s) PO Q8 PRN No Start Date 12/25/2011 Inactive 1/2 - 1 tab q 8hrs prn muscle spasms Medication Administered Medication Codes Instructions Start Date Status Influenza Virus Vaccine 0.5 mL RxNorm: 04/23/2013 No longer Active Rocephin 500 mg Solution for Injection RxNorm: 9773332 11/23/2011 No longer Active Immunizations Vaccine Codes [...] hypertension ICD-10: I10 ICD-9: 401.9 01/31/2018 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 ICD-10: Z79.899 ICD-9: V58.83 [...] hemorrhoids ICD-10: K64.0 ICD-9: 455.6 03/24/2016 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 ICD-10: Z79.899 ICD-9: V58.69 [...] Ord9 DIGOXIN 0.5 NG/ML 12/06/2018 Comp Metabolic Lcw564 NA 124 mEq/L 12/06/2018 Comp Metabolic Swn757 K 4.7 mEq/L 12/06/2018 Comp Metabolic Fnd609 CL 92 mEq/L 12/06/2018 Comp Metabolic Kun952 CO2 21.0 mEq/L 12/06/2018 Comp Metabolic Mgo441 ANION GAP 16 12/06/2018 Comp Metabolic Aks233 GLUCOSE 116 mg/dL 12/06/2018 Comp Metabolic Stx306 Creat 0.9 mg/dL 12/06/2018 Comp Metabolic Nmw746 eGFR 62 ml/min/1.73m2 12/06/2018 Comp Metabolic Hvq379 BUN 24 mg/dL 12/06/2018 Comp Metabolic Zml892 B/C Ratio 26.1 Ratio 12/06/2018 Comp Metabolic Nqs131 CALCIUM 8.5 mg/dL 12/06/2018 Comp Metabolic Ksh998 ALK PHOS 53 U/L 12/06/2018 Comp Metabolic Mpr992 AST(SGOT) 30 U/L 12/06/2018 Comp Metabolic Zwx544 ALT(SGPT) 35 U/L 12/06/2018 Comp Metabolic Zfl048 BILI T 0.7 mg/dL 12/06/2018 Comp Metabolic Vct271 ALBUMIN 3.2 g/dL 12/06/2018 Comp Metabolic Haq715 TPRO 6.1 g/dL 12/06/2018 Comp Metabolic Smk811 GLOB 2.9 g/dL 12/06/2018 Comp Metabolic Cox789 A/G Ratio 1.1 Ratio 12/06/2018 Comp Metabolic Fbq296 Osmo 255 mOsmo 12/06/2018 Cbc With Differential [...] 31.1 pg 12/06/2018 Cbc With Differential Ord2 [place]% 9.1 % 12/06/2018 Cbc With Differential Ord2 [...] 0.51 K/ul 12/06/2018 Cbc With Differential Ord2 [place] ABS# 0.9 K/ul 12/06/2018 Cbc With Differential Ord2 Eos ABS# 0.4 K/ul 12/06/2018 Cbc With Differential Ord2 Baso ABS# 0.0 K/ul 12/06/2018 C RAP A SC [id number] Strep A Negative 11/30/2018 Electrolytes Ord62 NA 132 mEq/L 09/25/2018 Electrolytes Ord62 K 4.1 mEq/L 09/25/2018 Electrolytes Ord62 CL 98 mEq/L 09/25/2018 Electrolytes Ord62 CO2 26.0 mEq/L 09/25/2018 Electrolytes Ord62 ANION GAP 12 09/25/2018 Comp Metabolic Sax655 NA 130 mEq/L 09/12/2018 Comp Metabolic Nqt363 K 4.2 mEq/L 09/12/2018 Comp Metabolic Hxc244 CL 98 mEq/L 09/12/2018 Comp Metabolic Omt972 CO2 23.0 mEq/L 09/12/2018 Comp Metabolic Qfo176 ANION GAP 13 09/12/2018 Comp Metabolic Xif570 GLUCOSE 129 mg/dL 09/12/2018 Comp Metabolic Ecr991 Creat 1.0 mg/dL 09/12/2018 Comp Metabolic Bzh454 eGFR 58 ml/min/1.73m2 09/12/2018 Comp Metabolic Puj424 BUN 28 mg/dL 09/12/2018 Comp Metabolic Rff723 B/C Ratio 28.9 Ratio 09/12/2018 Comp Metabolic Vnu539 CALCIUM 9.1 mg/dL 09/12/2018 Comp Metabolic Tfd724 ALK PHOS 59 U/L 09/12/2018 Comp Metabolic Atn094 AST(SGOT) 21 U/L 09/12/2018 Comp Metabolic Cmj427 ALT(SGPT) 19 U/L 09/12/2018 Comp Metabolic Fzn948 BILI T 0.8 mg/dL 09/12/2018 Comp Metabolic Ltu571 ALBUMIN 3.9 g/dL 09/12/2018 Comp Metabolic Pjv670 TPRO 6.5 g/dL 09/12/2018 Comp Metabolic Kct791 GLOB 2.6 g/dL 09/12/2018 Comp Metabolic Jjp198 A/G Ratio 1.5 Ratio 09/12/2018 Comp Metabolic Jwp314 Osmo 268 mOsmo 09/12/2018 Tsh Ord6 TSH (3rd IS) 12.84 uIU/mL 09/12/2018 Influenza A+B Mqa669 Influ A+B Negative 09/12/2018 Cbc With Differential [...] 12.3 % 09/12/2018 Cbc With Differential Ord2 [place]% 12.0 % 09/12/2018 Cbc With Differential Ord2 [...] 0.85 K/ul 09/12/2018 Cbc With Differential Ord2 [place] ABS# 0.8 K/ul 09/12/2018 Cbc With Differential Ord2 Eos ABS# 0.1 K/ul 09/12/2018 Cbc With Differential Ord2 Baso ABS# 0.0 K/ul 09/12/2018 Free T4 One678 FREE T4 1.10 ng/dL 09/12/2018 Free T4 Vsu072 FREE T4 1.19 ng/dL 05/08/2018 Digoxin Ord9 DIGOXIN 0.6 NG/ML 05/08/2018 Tsh Ord6 TSH (3rd IS) 10.58 uIU/mL 05/08/2018 Tsh Ord6 TSH (3rd IS) 1.07 uIU/mL 01/31/2018 Free T4 Hlh008 FREE T4 1.63 ng/dL 01/31/2018 Digoxin Ord9 DIGOXIN 0.8 NG/ML 01/31/2018 C RAP A SC [id number] Strep A Negative 11/21/2016 Thyroid Antibodies 253046 THYROGLOBULIN ANTIBODY . 11/04/2016 Thyroid Antibodies 291994 THYROGLOBULIN ANTIBODY 919 IU/mL 11/04/2016 Thyroid Antibodies 789746 THYROID PEROXIDASE (TPO) AB . 11/04/2016 Thyroid Antibodies 607960 THYROID PEROXIDASE (TPO) AB 10 IU/mL 11/04/2016 Total T3 Ord42 TT3 0.64 ng/ml 11/03/2016 Free T4 Hks562 FREE T4 1.39 ng/dL 11/02/2016 Tsh Ord6 [...] Differential Ord2 RDW 13.8 % 05/26/2015 Pt Rwt0717 PT 25.0 seconds 05/26/2015 Pt Cdj0483 INR 2.4 05/26/2015 Pt Pbi1515 Low Intensity - 1.5-2.0 05/26/2015 Pt Rns0522 Mod intensity - 2.0-3.0 05/26/2015 Pt Xce1499 Hi intensity - 3.0-4.0 05/26/2015 Uric Acid [...] Digoxin Ord9 DIGOXIN 0.6 NG/ML 05/06/2015 Pt Aqn1039 PT 23.3 seconds 05/06/2015 Pt Biy6310 INR 2.1 05/06/2015 Pt Sdc3223 Low Intensity - 1.5-2.0 05/06/2015 Pt Tkf6776 Mod intensity - 2.0-3.0 05/06/2015 Pt Nfl9788 Hi intensity - 3.0-4.0 05/06/2015 Free T4 Ate448 FREE T4 1.65 ng/dL 05/06/2015 Comp Metabolic Pol313 NA 132 mEq/L 05/06/2015 Comp Metabolic Bzc035 K 4.1 mEq/L 05/06/2015 Comp Metabolic Kll217 CL 98 mEq/L 05/06/2015 Comp Metabolic Cxg193 CO2 27.0 mEq/L 05/06/2015 Comp Metabolic Snu742 ANION GAP 11 05/06/2015 Comp Metabolic Nif052 GLUCOSE 71 mg/dL 05/06/2015 Comp Metabolic Rln565 Creat 0.7 mg/dL 05/06/2015 Comp Metabolic Afn664 eGFR 82 ml/min/1.73m2 05/06/2015 Comp Metabolic Krg635 BUN 16 mg/dL 05/06/2015 Comp Metabolic Sjn934 B/C Ratio 22.2 Ratio 05/06/2015 Comp Metabolic Cxz462 CALCIUM 9.4 mg/dL 05/06/2015 Comp Metabolic Ngz776 ALK PHOS 60 U/L 05/06/2015 Comp Metabolic Tgo319 AST(SGOT) 22 U/L 05/06/2015 Comp Metabolic Zet907 ALT(SGPT) 24 U/L 05/06/2015 Comp Metabolic Zut907 BILI T 0.8 mg/dL 05/06/2015 Comp Metabolic Xoo820 ALBUMIN 4.3 g/dL 05/06/2015 Comp Metabolic Hpn852 TPRO 7.6 g/dL 05/06/2015 Comp Metabolic Obi301 GLOB 3.3 g/dL 05/06/2015 Comp Metabolic Bla865 A/G Ratio 1.3 Ratio 05/06/2015 Comp Metabolic Asq393 Osmo 264 mOsmo 05/06/2015 DIGOXIN 4623496 DIGOXIN 1.1 NG/ML 05/15/2013 PT/MC 1482428 PRO TIME 21.7 SEC 05/15/2013 PT/MC 5269987 INR MCMC 2.0 05/15/2013 CHEM 14 3406327 AST 24 U/L 04/23/2013 CHEM 14 6624173 ALT 31 IU/L 04/23/2013 CHEM 14 5319545 BUN 13 MG/DL 04/23/2013 CHEM 14 4932067 ALBUMIN 4.1 GM/DL 04/23/2013 CHEM 14 2654695 CHLORIDE 103 MMOL/L 04/23/2013 CHEM 14 3624706 BILI TOT 0.5 MG/DL 04/23/2013 CHEM 14 9587503 ALK PHOS 44 U/L 04/23/2013 CHEM 14 0334332 SODIUM 137 MMOL/L 04/23/2013 CHEM 14 5705256 CREATININE 0.61 MG/DL 04/23/2013 CHEM 14 9626450 CALCIUM 9.5 MG/DL 04/23/2013 CHEM 14 7714747 POTASSIUM 4.0 MMOL/L 04/23/2013 CHEM 14 2098540 PROT TOT 6.6 GM/DL 04/23/2013 CHEM 14 9416251 GLUCOSE 99 MG/DL 04/23/2013 CHEM 14 8474721 BICARB 27 MMOL/L 04/23/2013 CHEM 14 6984002 ANION GAP 7 MEQ/L 04/23/2013 GFR CALC 2812292 GFR AA >60 ML/MIN 04/23/2013 GFR CALC 5533460 GFR NON-AA >60 ML/MIN 04/23/2013 TSH 5271261 TSH 4.204 uIU/ML 04/23/2013 CBC 1793530 WBC 6.7 10e9/L 04/23/2013 CBC 4750137 RBC 4.19 10e12/L 04/23/2013 CBC 9856664 HGB 13.2 g/dL 04/23/2013 CBC 4825502 HCT DET 39.2 % 04/23/2013 CBC 9301746 MCV 93.6 fL 04/23/2013 CBC 0508088 MCH 31.5 pg 04/23/2013 CBC 3839012 MCHC 33.7 g/dL 04/23/2013 CBC 2107032 PLT 202 10e9/L 04/23/2013 CBC 8249284 MPV 11.4 fL 04/23/2013 CBC 2074131 YANIRA % 70.5 % 04/23/2013 CBC 6810736 LY % 19.6 % 04/23/2013 CBC 7861872 MON % 8.2 % 04/23/2013 CBC 1033622 EOS % 1.6 % 04/23/2013 CBC 5546435 BASO % 0.1 % 04/23/2013 CBC 1598462 RDW 13.7 % 04/23/2013 CBC 8429791 ABS YANIRA 4.72 10e9/L 04/23/2013 CBC 0409453 ABS LYMPH 1.31 10e9/L 04/23/2013 CBC 2698995 ABS MONO 0.55 10e9/L 04/23/2013 CBC 5250109 ABS EOS 0.11 10e9/L 04/23/2013 CBC 6468732 ABS BASO 0.01 10e9/L 04/23/2013 CBC 4236690 RDW-SD 45.7 fL 04/23/2013 PT/MC 4036592 PRO TIME 13.4 SEC 12/17/2012 PT/MC 3550519 INR MCMC 1.0 12/17/2012 PT/MC 4649117 PRO TIME 16.6 SEC 12/14/2012 PT/MC 2764784 INR MCMC 1.4 12/14/2012 PT/MC 8062564 PRO TIME 27.2 SEC 12/11/2012 PT/MC 2743309 INR MCMC 2.6 12/11/2012 DIGOXIN 8250895 DIGOXIN 2.1 NG/ML 03/08/2012 GFR CALC 3346080 GFR AA >60 ML/MIN 03/08/2012 GFR CALC 8713059 GFR NON-AA >60 ML/MIN 03/08/2012 CHEM 14 20280112 AST 16 U/L 03/08/2012 CHEM 14 20280112 ALT 14 IU/L 03/08/2012 CHEM 14 20280112 BUN 10 MG/DL 03/08/2012 CHEM 14 20280112 ALBUMIN 4.2 GM/DL 03/08/2012 CHEM 14 20280112 CHLORIDE 100 MMOL/L 03/08/2012 CHEM 14 20280112 BILI TOT 0.5 MG/DL 03/08/2012 CHEM 14 20280112 ALK PHOS 59 U/L 03/08/2012 CHEM 14 7251919 SODIUM 136 MMOL/L 03/08/2012 CHEM 14 7644430 CREATININE 0.65 MG/DL 03/08/2012 CHEM 14 9648410 CALCIUM 9.4 MG/DL 03/08/2012 CHEM 14 7243417 POTASSIUM 3.9 MMOL/L 03/08/2012 CHEM 14 4728517 PROT TOT 6.7 GM/DL 03/08/2012 CHEM 14 3886714 GLUCOSE 90 MG/DL 03/08/2012 CHEM 14 2062633 BICARB 30 MMOL/L 03/08/2012 CHEM 14 4504553 ANION GAP 6 MEQ/L 03/08/2012 CHEM 14 8629133 AST 16 U/L 11/23/2011 CHEM 14 1130752 ALT 14 IU/L 11/23/2011 CHEM 14 0833139 BUN 11 MG/DL 11/23/2011 CHEM 14 5041848 ALBUMIN 4.1 GM/DL 11/23/2011 CHEM 14 1180443 CHLORIDE 100 MMOL/L 11/23/2011 CHEM 14 0029788 BILI TOT 0.5 MG/DL 11/23/2011 CHEM 14 3968492 ALK PHOS 50 U/L 11/23/2011 CHEM 14 0369928 SODIUM 135 MMOL/L 11/23/2011 CHEM 14 4623302 CREATININE 0.57 MG/DL 11/23/2011 CHEM 14 4985800 CALCIUM 9.1 MG/DL 11/23/2011 CHEM 14 3722659 POTASSIUM 4.5 MMOL/L 11/23/2011 CHEM 14 6052249 PROT TOT 6.5 GM/DL 11/23/2011 CHEM 14 3749480 GLUCOSE 89 MG/DL 11/23/2011 CHEM 14 5904557 BICARB 28 MMOL/L 11/23/2011 CHEM 14 2713129 ANION GAP 7 MEQ/L 11/23/2011 GFR CALC 6310076 GFR AA >60 ML/MIN 11/23/2011 GFR CALC 4487839 GFR NON-AA >60 ML/MIN 11/23/2011 CBC 5117478 WBC 5.1 10e9/L 11/23/2011 CBC 3093445 RBC 4.06 10e12/L 11/23/2011 CBC 6843639 HGB 12.5 g/dL 11/23/2011 CBC 4725831 HCT DET 37.3 % 11/23/2011 CBC 2277281 MCV 91.9 fL 11/23/2011 CBC 7966335 MCH 30.8 pg 11/23/2011 CBC 1192050 MCHC 33.5 g/dL 11/23/2011 CBC 1926431 PLT 222 10e9/L 11/23/2011 CBC 1462740 MPV 10.8 fL 11/23/2011 CBC 0366690 YANIRA % 64.2 % 11/23/2011 CBC 7154922 LY % 22.3 % 11/23/2011 CBC 6166227 MON % 11.3 % 11/23/2011 CBC 1926422 EOS % 1.8 % 11/23/2011 CBC 5040943 BASO % 0.4 % 11/23/2011 CBC 3991150 RDW 13.6 % 11/23/2011 CBC 7139872 ABS YANIRA 3.27 10e9/L 11/23/2011 CBC 3594354 ABS LYMPH 1.14 10e9/L 11/23/2011 CBC 8932955 ABS MONO 0.58 10e9/L 11/23/2011 CBC 4005045 ABS EOS 0.09 10e9/L 11/23/2011 CBC 2627582 ABS BASO 0.02 10e9/L 11/23/2011 CBC 5511700 RDW-SD 44.5 fL 11/23/2011 UA 40283 Specific [place] 1.005 03/04/2011 UA 94707 PH 6 03/04/2011 UA 68861 GLUCOSE N 03/04/2011 UA 63920 Protein N 03/04/2011 UA 66127 Blood ++ 03/04/2011 UA 90377 Bilirubin N 03/04/2011 UA 79308 Ketones N 03/04/2011 UA 95875 Urobilinogen N 03/04/2011 UA 25375 Nitrite N 03/04/2011 UA 31245 Leukocytes N 03/04/2011 URINALYSIS NONAUTO W/O SCOPE 54407 Specific [place] 1.010 DateTime(Free Text in Aprima) URINALYSIS NONAUTO W/O SCOPE 70246 PH 6.5 DateTime(Free Text in Apr[employer]) URINALYSIS NONAUTO W/O SCOPE 33965 GLUCOSE neg DateTime(Free Text in Apr[employer]) URINALYSIS NONAUTO W/O SCOPE 47776 Protein neg DateTime(Free Text in Apr[employer]) URINALYSIS NONAUTO W/O SCOPE 54223 Blood 3+ DateTime(Free Text in Apr[employer]) URINALYSIS NONAUTO W/O SCOPE 22444 Bilirubin neg DateTime(Free Text in Apr[employer]) URINALYSIS NONAUTO W/O SCOPE 10874 Ketones neg DateTime(Free Text in Apr[employer]) URINALYSIS NONAUTO W/O SCOPE 39923 Urobilinogen neg DateTime(Free Text in Apr[employer]) URINALYSIS NONAUTO W/O SCOPE 43926 Nitrite neg DateTime(Free Text in Apr[employer]) URINALYSIS NONAUTO W/O SCOPE 99261 Leukocytes neg DateTime(Free Text in Apr[employer]) URINALYSIS NONAUTO W/O SCOPE 23291 Specific [place] 1.010 DateTime(Free Text in Apr[employer]) URINALYSIS NONAUTO W/O SCOPE 63903 PH 5 DateTime(Free Text in Apr[employer]) URINALYSIS NONAUTO W/O SCOPE 47212 GLUCOSE neg DateTime(Free Text in Apr[employer]) URINALYSIS NONAUTO W/O SCOPE 12506 Protein neg DateTime(Free Text in Apr[employer]) URINALYSIS NONAUTO W/O SCOPE 05695 Blood 3+ DateTime(Free Text in Apr[employer]) URINALYSIS NONAUTO W/O SCOPE 80405 Bilirubin neg DateTime(Free Text in Apr[employer]) URINALYSIS NONAUTO W/O SCOPE 24790 Ketones neg DateTime(Free Text in Apr[employer]) URINALYSIS NONAUTO W/O SCOPE 79915 Urobilinogen neg DateTime(Free Text in Apr[employer]) URINALYSIS NONAUTO W/O SCOPE 79608 Nitrite neg DateTime(Free Text in Apr[employer]) URINALYSIS NONAUTO W/O SCOPE 64021 Leukocytes neg DateTime(Free Text in Apr[employer]) URINALYSIS NONAUTO W/O SCOPE 57901 Specific [place] 1.005 DateTime(Free Text in Apr[employer]) URINALYSIS NONAUTO W/O SCOPE 86226 PH 8.5 DateTime(Free Text in Aprima) URINALYSIS NONAUTO W/O SCOPE 68409 GLUCOSE neg DateTime(Free Text in Apr[employer]) URINALYSIS NONAUTO W/O SCOPE 69638 Protein neg DateTime(Free Text in Apr[employer]) URINALYSIS NONAUTO W/O SCOPE 31625 Blood 1+ DateTime(Free Text in Apr[employer]) URINALYSIS NONAUTO W/O SCOPE 82767 Bilirubin neg DateTime(Free Text in Apr[employer]) URINALYSIS NONAUTO W/O SCOPE 91743 Ketones neg DateTime(Free Text in Apr[employer]) URINALYSIS NONAUTO W/O SCOPE 92832 Urobilinogen neg DateTime(Free Text in Apr[employer]) URINALYSIS NONAUTO W/O SCOPE 96484 Nitrite neg DateTime(Free Text in Apr[employer]) URINALYSIS NONAUTO W/O SCOPE 96585 Leukocytes neg DateTime(Free Text in Apr[employer]) URINALYSIS NONAUTO W/O SCOPE 85149 Specific [place] 1.005 DateTime(Free Text in Aprima) URINALYSIS NONAUTO W/O SCOPE 76712 PH 7 DateTime(Free Text in Apr[employer]) URINALYSIS NONAUTO W/O SCOPE 50706 GLUCOSE neg DateTime(Free Text in Aprima) URINALYSIS NONAUTO W/O SCOPE 16772 Protein neg DateTime(Free Text in Apr[employer]) URINALYSIS NONAUTO W/O SCOPE 58993 Blood large DateTime(Free Text in Apr[employer]) URINALYSIS NONAUTO W/O SCOPE 53883 Bilirubin neg DateTime(Free Text in Apr[employer]) URINALYSIS NONAUTO W/O SCOPE 43028 Ketones neg DateTime(Free Text in Apr[employer]) URINALYSIS NONAUTO W/O SCOPE 98015 Urobilinogen 0.2 DateTime(Free Text in Apr[employer]) URINALYSIS NONAUTO W/O SCOPE 12332 Nitrite neg DateTime(Free Text in Apr[employer]) URINALYSIS NONAUTO W/O SCOPE 78917 Leukocytes neg DateTime(Free Text in Apr[employer]) URINALYSIS NONAUTO W/O SCOPE 69651 Specific [place] 1.005 DateTime(Free Text in Aprima) URINALYSIS NONAUTO W/O SCOPE 04231 PH 7.5 DateTime(Free Text in Aprima) URINALYSIS NONAUTO W/O SCOPE 05997 GLUCOSE DateTime(Free Text in Apr[employer]) URINALYSIS NONAUTO W/O SCOPE 03401 Protein trace DateTime(Free Text in Apr[employer]) URINALYSIS NONAUTO W/O SCOPE 64808 Blood 4+ DateTime(Free Text in Apr[employer]) URINALYSIS NONAUTO W/O SCOPE 16466 Bilirubin DateTime(Free Text in Apr[employer]) URINALYSIS NONAUTO W/O SCOPE 12637 Ketones DateTime(Free Text in Apr[employer]) URINALYSIS NONAUTO W/O SCOPE 06501 Urobilinogen DateTime(Free Text in ) URINALYSIS NONAUTO W/O SCOPE 32377 Nitrite DateTime(Free Text in Apr) URINALYSIS NONAUTO W/O SCOPE 86832 Leukocytes trace DateTime(Free Text in ) Review [...] FLU VACC PRSV FREE INC ANTIG CPT-4: 59135 03/27/2017 PPPS, SUBSEQ VISIT CPT- 4: G0439 01/23/2017 URINALYSIS NONAUTO W/O SCOPE CPT-4: 19400 05/17/2016 ADMIN INFLUENZA VIRUS VAC CPT-4: G0008 03/24/2016 FLU VACC PRSV FREE INC ANTIG CPT-4: 35615 03/24/2016 ADMIN PNEUMOCOCCAL VACCINE SNOMED CT: 88453114 CPT-4: G0009 05/13/2015 PNEUMOCOCCAL VACC [address]: 25196810 CPT-4: 83704 05/13/2015 Pneumococcal Polysaccharide Vaccine, 23-Valent, Ad Assigned to/Mela Bledsoe CPT-4: [id number] 07/11/2014 ADMIN PNEUMOCOCCAL VACCINE SNOMED CT: 95351238 CPT-4: G0009 07/11/2014 URINALYSIS NONAUTO W/O SCOPE CPT-4: 46600 05/14/2014 URINALYSIS NONAUTO W/O SCOPE CPT-4: 12608 05/06/2014 URINALYSIS NONAUTO W/O SCOPE CPT-4: 42711 04/29/2014 ADMIN INFLUENZA VIRUS VAC CPT-4: G0008 03/20/2014 FLU VAC NO PRSV 4 SCOTT 3 YRS+ Assigned to/Mela Bledsoe CPT-4: [id number] 03/20/2014 URINALYSIS NONAUTO W/O SCOPE CPT-4: 71464 07/29/2013 URINALYSIS NONAUTO W/O SCOPE CPT-4: 85852 07/01/2013 URINALYSIS NONAUTO W/O SCOPE CPT-4: 39289 06/20/2013 ROUTINE VENIPUNCTURE CPT- 4: 80010 05/15/2013 ROUTINE VENIPUNCTURE CPT- 4: 75723 04/23/2013 ADMIN INFLUENZA VIRUS VAC CPT-4: G0008 04/23/2013 FLULAVAL VACC, 3 YRS & >, IM CPT-4: Q2036 04/23/2013 ROUTINE VENIPUNCTURE CPT- 4: 53014 12/17/2012 ROUTINE VENIPUNCTURE CPT- 4: 49239 12/14/2012 ROUTINE VENIPUNCTURE CPT- 4: 93832 12/11/2012 PRESCRIP TRANSMIT VIA ERX SY CPT-4: G8553 12/11/2012 PRESCRIP TRANSMIT VIA ERX SY CPT-4: G8553 10/30/2012 URINALYSIS NONAUTO W/O SCOPE CPT-4: 35582 09/13/2012 ADMIN INFLUENZA VIRUS VAC CPT-4: G0008 04/18/2012 FLULAVAL VACC, 3 YRS & >, IM CPT-4: Q2036 04/18/2012 URINALYSIS NONAUTO W/O SCOPE CPT-4: 65076 03/13/2012 ROUTINE VENIPUNCTURE CPT- 4: 02642 03/08/2012 URINALYSIS NONAUTO W/O SCOPE CPT-4: 61436 02/13/2012 PRESCRIP TRANSMIT VIA ERX SY CPT-4: G8553 02/13/2012 ROCEPHIN, PER 250 MG CPT- 4: J0696 11/23/2011 ROUTINE VENIPUNCTURE CPT- 4: 47244 11/23/2011 URINALYSIS NONAUTO W/O SCOPE CPT-4: 56231 11/23/2011 PRESCRIP TRANSMIT VIA ERX SY CPT-4: G8553 11/23/2011 REMOVE IMPACTED EAR WAX UNI CPT-4: 02812 10/17/2011 PRESCRIP TRANSMIT VIA ERX SY CPT-4: G8553 10/03/2011 PRESCRIP TRANSMIT VIA ERX SY CPT-4: G8553 08/08/2011 URINALYSIS NONAUTO W/O SCOPE CPT-4: 36388 03/15/2011 URINALYSIS NONAUTO W/O SCOPE CPT-4: 96818 03/04/2011 THER/PROPH/DIAG INJ SC/IM CPT-4: 24824 03/04/2011 ROCEPHIN, PER 250 MG CPT- 4: J0696 03/04/2011 Vital Signs Date Vital 01/03/2019 Blood Pressure 1: 140/68 Code: 8480-6 Heart Rate 1: 80 bpm Height: 5' Weight: 12/10/2018 Blood Pressure 1: 120/56 Code: 8480-6 BMI: 19.9 Code: 60408-7 Heart Rate 1: 103 bpm Height: 5' SpO2: 93% Weight: 102 lbs 12/06/2018 Blood Pressure 1: 118/66 Code: 8480-6 BMI: 20.1 Code: 62991-2 Heart Rate 1: 134 bpm Height: 5' SpO2: 98% Weight: 103 lbs 11/30/2018 Blood Pressure 1: 122/64 Code: 8480-6 Height: Weight: 10/31/2018 Blood Pressure 1: 122/66 Code: 8480-6 BMI: 20.5 Code: 17597-3 Heart Rate 1: 83 bpm Height: 5' SpO2: 99% Weight: 105 lbs 10/09/2018 Blood Pressure 1: 126/60 Code: 8480-6 BMI: 19.9 Code: 25025-1 Heart Rate 1: 66 bpm Height: 5' SpO2: 96% Weight: 102 lbs 09/12/2018 Blood Pressure 1: 156/72 Code: 8480-6 BMI: 19.9 Code: 90785-0 Heart Rate 1: 68 bpm Height: 5' Temperature: 36.6 (C) / 97.8 (F) Weight: 102 lbs 08/14/2018 Blood Pressure 1: 136/68 Code: 8480-6 BMI: 21.1 Code: 05696-9 Heart Rate 1: 92 bpm Height: 5' Weight: 108 lbs 07/26/2018 Blood Pressure 1: 128/76 Code: 8480-6 BMI: 21.1 Code: 65425-4 Heart Rate 1: 88 bpm Height: 5' Weight: 108 lbs 06/04/2018 Blood Pressure 1: 124/72 Code: 8480-6 BMI: 21.3 Code: 75237-8 Heart Rate 1: 98 bpm Height: 5' Weight: 109 lbs 01/31/2018 Blood Pressure 1: 116/68 Code: 8480-6 BMI: 21.1 Code: 89936-1 Heart Rate 1: 89 bpm Height: 5' SpO2: 98% Weight: 108 lbs 01/17/2018 Blood Pressure 1: 134/74 Code: 8480-6 BMI: 21.3 Code: 68748-4 Heart Rate 1: 74 bpm Height: 5' SpO2: 96% Waist Measure (cm): 71 cm Weight: 109 lbs 12/14/2017 Blood Pressure 1: 150/78 Code: 8480-6 BMI: 21.5 Code: 15555-8 Heart Rate 1: 77 bpm Height: 5' SpO2: 98% Temperature: 36.7 (C) / 98.1 (F) Weight: 110 lbs 12/07/2017 Blood Pressure 1: 134/70 Code: 8480-6 Heart Rate 1: 76 bpm Height: SpO2: 98% Temperature: 36.8 (C) / 98.2 (F) Weight: 11/14/2017 Blood Pressure 1: 152/84 Code: 8480-6 BMI: 21.9 Code: 81295-1 Heart Rate 1: 95 bpm Height: 5' SpO2: 93% Weight: 112 lbs 03/27/2017 Blood Pressure 1: 122/70 Code: 8480-6 BMI: 21.3 Code: 33940-5 Heart Rate 1: 75 bpm Height: 5' Weight: 109 lbs 01/23/2017 BMI: 21.5 Code: 96052-3 Height: 5' Weight: 110 lbs 01/19/2017 Blood Pressure 1: 112/60 Code: 8480-6 BMI: 21.5 Code: 61268-8 Heart Rate 1: 54 bpm Height: 5' SpO2: 97% Weight: 110 lbs 11/29/2016 Blood Pressure 1: 126/68 Code: 8480-6 Height: 5' Weight: 11/23/2016 Blood Pressure 1: 130/72 Code: 8480-6 BMI: 21.9 Code: 55295-0 Heart Rate 1: 48 bpm Height: 5' SpO2: 97% Temperature: 36.7 (C) / 98.0 (F) Weight: 112 lbs 11/21/2016 Blood Pressure 1: 134/76 Code: 8480-6 BMI: 21.9 Code: 81462-8 Heart Rate 1: 41 bpm Height: 5' SpO2: 94% Temperature: 36.9 (C) / 98.4 (F) Weight: 112 lbs 11/08/2016 Blood Pressure 1: 126/74 Code: 8480-6 Heart Rate 1: 82 bpm Height: 5' SpO2: 94% Weight: 11/02/2016 Blood Pressure 1: 112/66 Code: 8480-6 Heart Rate 1: 72 bpm Height: 5' SpO2: 95% Weight: 10/27/2016 Blood Pressure 1: 130/64 Code: 8480-6 BMI: 21.7 Code: 96367-1 Heart Rate 1: 81 bpm Height: 5' SpO2: 96% Weight: 111 lbs 08/31/2016 Blood Pressure 1: 132/72 Code: 8480-6 BMI: 22.5 Code: 08107-8 Heart Rate 1: 66 bpm Height: 5' Weight: 115 lbs 07/27/2016 Blood Pressure 1: 166/74 Code: 8480-6 BMI: 23.2 Code: 58041-7 Heart Rate 1: 48 bpm Height: 5' SpO2: 90% Temperature: 36.8 (C) / 98.2 (F) Weight: 119 lbs 06/23/2016 Blood Pressure 1: 128/70 Code: 8480-6 BMI: 22.3 Code: 54314-5 Heart Rate 1: 75 bpm Height: 5' SpO2: 97% Weight: 114 lbs 06/09/2016 BMI: 22.7 Code: 48784-1 Heart Rate 1: 73 bpm Height: 5' SpO2: 97% Weight: 116 lbs 05/25/2016 Blood Pressure 1: 138/62 Code: 8480-6 BMI: 22.8 Code: 39335-0 Heart Rate 1: 76 bpm Height: 5' Weight: 117 lbs 05/17/2016 Blood Pressure 1: 116/70 Code: 8480-6 BMI: 22.8 Code: 59761-0 Heart Rate 1: 74 bpm Height: 5' SpO2: 94% Weight: 117 lbs 03/24/2016 Blood Pressure 1: 154/78 Code: 8480-6 BMI: 22.5 Code: 24579-9 Heart Rate 1: 78 bpm Height: 5' SpO2: 97% Weight: 115 lbs 02/02/2016 Blood Pressure 1: 132/70 Code: 8480-6 BMI: 22.3 Code: 91908-6 Heart Rate 1: 74 bpm Height: 5' SpO2: 94% Weight: 114 lbs 2016 Blood Pressure 1: 120/62 Code: 8480-6 BMI: 22.0 Code: 44531-1 Heart Rate 1: 68 bpm Height: 5' Weight: 112 lbs 8 oz 12/21/2015 Blood Pressure 1: 122/82 Code: 8480-6 BMI: 21.9 Code: 27771-8 Heart Rate 1: 83 bpm Height: 5' SpO2: 93% Temperature: 37.1 (C) / 98.7 (F) Weight: 112 lbs 11/03/2015 Blood Pressure 1: 122/72 Code: 8480-6 BMI: 22.4 Code: 41645-3 Heart Rate 1: 62 bpm Height: 5' Weight: 114 lbs 8 oz 10/19/2015 Blood Pressure 1: 138/62 Code: 8480-6 BMI: 21.1 Code: 07969-3 Heart Rate 1: 79 bpm Height: 5' Weight: 108 lbs 10/13/2015 Blood Pressure 1: 120/62 Code: 8480-6 BMI: 21.0 Code: 98375-6 Heart Rate 1: 76 bpm Height: 5' SpO2: 98% Weight: 108 lbs 09/29/2015 Blood Pressure 1: 130/70 Code: 8480-6 BMI: 20.2 Code: 85641-6 Heart Rate 1: 72 bpm Height: 5' Weight: 104 lbs 09/15/2015 Blood Pressure 1: 128/78 Code: 8480-6 BMI: 19.9 Code: 17072-4 Heart Rate 1: 72 bpm Height: 5' Weight: 102 lbs 8 oz 09/01/2015 Blood Pressure 1: 128/68 Code: 8480-6 BMI: 19.8 Code: 52320-3 Height: 5' Weight: 102 lbs 05/26/2015 Blood Pressure 1: 140/68 Code: 8480-6 BMI: 19.0 Code: 44625-3 Heart Rate 1: 70 bpm Height: 5' Weight: 98 lbs 05/21/2015 Blood Pressure 1: 140/78 Code: 8480-6 BMI: 19.2 Code: 56884-5 Heart Rate 1: 85 bpm Height: 5' SpO2: 95% Weight: 99 lbs 05/07/2015 Blood Pressure 1: 140/82 Code: 8480-6 BMI: 19.0 Code: 50327-5 Heart Rate 1: 76 bpm Height: 5' Weight: 98 lbs 03/23/2015 Blood Pressure 1: 142/60 Code: 8480-6 BMI: 18.6 Code: 43907-0 Heart Rate 1: 52 bpm Height: 5' Weight: 96 lbs 03/09/2015 Blood Pressure 1: 138/74 Code: 8480-6 BMI: 18.8 Code: 21878-6 Heart Rate 1: 60 bpm Height: 5' Weight: 97 lbs 10/30/2014 Blood Pressure 1: 112/82 Code: 8480-6 BMI: 19.0 Code: 82385-6 Heart Rate 1: 64 bpm Height: 5' Weight: 98 lbs 07/11/2014 Blood Pressure 1: 146/70 Code: 8480-6 BMI: 18.8 Code: 28320-8 Heart Rate 1: 68 bpm Height: 5' Weight: 97 lbs 05/20/2014 Blood Pressure 1: 142/76 Code: 8480-6 BMI: 18.6 Code: 56480-3 Heart Rate 1: 78 bpm Height: 5' Weight: 96 lbs 04/29/2014 Blood Pressure 1: 138/62 Code: 8480-6 BMI: 18.3 Code: 11279-7 Heart Rate 1: 80 bpm Height: 5' Weight: 94 lbs 8 oz 03/20/2014 Blood Pressure 1: 142/68 Code: 8480-6 BMI: 18.6 Code: 28975-9 Heart Rate 1: 96 bpm Height: 5' Weight: 96 lbs 03/05/2014 Blood Pressure 1: 122/72 Code: 8480-6 BMI: 18.8 Code: 90650-1 Heart Rate 1: 82 bpm Height: 5' SpO2: 97% Weight: 97 lbs 01/29/2014 Blood Pressure 1: 124/78 Code: 8480-6 BMI: 18.8 Code: 73478-1 Heart Rate 1: 60 bpm Height: 5' Weight: 97 lbs 01/14/2014 Blood Pressure 1: 120/58 Code: 8480-6 BMI: 19.2 Code: 54820-9 Heart Rate 1: 56 bpm Height: 5' Temperature: 36.9 (C) / 98.4 (F) Weight: 99 lbs 12/25/2013 Blood Pressure 1: 118/78 Code: 8480-6 BMI: 19.2 Code: 78189-7 Heart Rate 1: 68 bpm Height: 5' Weight: 99 lbs 11/27/2013 Blood Pressure 1: 102/68 Code: 8480-6 BMI: 19.4 Code: 07634-0 Heart Rate 1: 56 bpm Height: 5' Weight: 100 lbs 09/12/2013 Blood Pressure 1: 142/62 Code: 8480-6 BMI: 19.7 Code: 64719-3 Heart Rate 1: 72 bpm Height: 5'1" Weight: 104 lbs 08/15/2013 Blood Pressure 1: 152/92 Code: 8480-6 Heart Rate 1: 96 bpm Weight: 102 lbs 08/01/2013 Blood Pressure 1: 122/68 Code: 8480-6 BMI: 19.1 Code: 17248-3 Heart Rate 1: 68 bpm Height: 5'1" Weight: 101 lbs 07/01/2013 Blood Pressure 1: 130/72 Code: 8480-6 BMI: 19.5 Code: 99439-8 Heart Rate 1: 80 bpm Height: 5'1" Temperature: 36.1 (C) / 97.0 (F) Weight: 103 lbs 05/29/2013 Blood Pressure 1: 126/72 Code: 8480-6 BMI: 19.3 Code: 11923-6 Heart Rate 1: 80 bpm Height: 5'1" Weight: 102 lbs 05/15/2013 Blood Pressure 1: 156/74 Code: 8480-6 BMI: 19.3 Code: 63830-7 Heart Rate 1: 88 bpm Height: 5'1" Weight: 102 lbs 04/23/2013 Blood Pressure 1: 140/82 Code: 8480-6 BMI: 19.3 Code: 16048-6 Heart Rate 1: 72 bpm Height: 5'1" Weight: 102 lbs 03/21/2013 Blood Pressure 1: 142/74 Code: 8480-6 Heart Rate 1: 92 bpm Weight: 103 lbs 01/16/2013 Blood Pressure 1: 120/56 Code: 8480-6 BMI: 20.0 Code: 26330-3 Heart Rate 1: 72 bpm Height: 5'1" Weight: 106 lbs 12/19/2012 Blood Pressure 1: 118/66 Code: 8480-6 Heart Rate 1: 84 bpm Weight: 12/10/2012 Blood Pressure 1: 132/62 Code: 8480-6 Heart Rate 1: 64 bpm Weight: 103 lbs 10/30/2012 Blood Pressure 1: 122/66 Code: 8480-6 BMI: 19.9 Code: 30154-9 Heart Rate 1: 61 bpm Height: 5'1" [...] 1: 118/72 Code: 8480-6 BMI: 21.0 Code: 63692-5 Heart Rate 1: 66 bpm Height: 5'1" Respiratory Rate: 16 bpm Weight: 111 lbs 2012 Blood Pressure 1: 122/62 Code: 8480-6 Heart Rate 1: 68 bpm Weight: 110 lbs 12/01/2011 Blood Pressure 1: 150/60 Code: 8480-6 BMI: 20.8 Code: 03345-8 Heart Rate 1: 60 bpm Height: 5'1" Respiratory Rate: 16 bpm Weight: 110 lbs 11/23/2011 Blood Pressure 1: 170/68 Code: 8480-6 BMI: 21.1 Code: 31299-5 Heart Rate 1: 64 bpm Height: 5'1" Temperature: 36.3 (C) / 97.3 (F) Weight: 111 lbs 8 oz 10/17/2011 Blood Pressure 1: 148/62 Code: 8480-6 Heart Rate 1: 74 bpm 10/03/2011 Blood Pressure 1: 102/48 Code: 8480-6 BMI: 21.4 Code: 26959-4 Heart Rate 1: 76 bpm Height: 5'1" Respiratory Rate: 16 bpm Weight: 113 lbs 08/08/2011 Blood Pressure 1: 128/60 Code: 8480-6 Heart Rate 1: 80 bpm Respiratory Rate: 16 bpm Weight: 113 lbs 05/09/2011 Blood Pressure 1: 130/62 Code: 8480-6 BMI: 20.7 Code: 43961-6 Heart Rate 1: 64 bpm Height: 5'1" Respiratory Rate: 16 bpm Weight: 109 lbs 8 oz 03/29/2011 Blood Pressure 1: 120/62 Code: 8480-6 BMI: 20.2 Code: 07284-7 Heart Rate 1: 66 bpm Height: 5'1" Respiratory Rate: 12 bpm Weight: 107 lbs 03/15/2011 Blood Pressure 1: 120/64 Code: 8480-6 BMI: 19.8 Code: 02191-0 Heart Rate 1: 76 bpm Height: 5'1" [...] contacts 03/20/2014 sat next to neighbor in [place] who had tonsillitis sore throat Pertinent Findings [...] Directive data Encounters Encounter Performer Location Codes ([id number]) 72585 EST. PATIENT, LEVEL IV Diagnosis: Localized edema[ICD10: R60.0] Diagnosis: Paroxysmal atrial fibrillation[ICD10: I48.0] Diagnosis: Hypo-osmolality and hyponatremia[ICD10: E87.1] Laura Bahena MD, [facility] CPT-4: 11001 01/03/2019 ([id number]) Miscellaneous no charge Diagnosis: Hypo-osmolality and hyponatremia[ICD10: E87.1] Diagnosis: Paroxysmal atrial fibrillation[ICD10: I48.0] Diagnosis: Muscle weakness (generalized)[ICD10: M62.81] Diagnosis: Major depressive disorder, recurrent, mild[ICD10: F33.0] Karma Bahena MD, [facility] CPT-4: 01038 12/10/2018 ([id number]) 02879 EST. PATIENT, LEVEL III Diagnosis: Chronic atrial fibrillation[ICD10: I48.2] Diagnosis: Cough[ICD10: R05] Laura Bahena MD, [facility] CPT-4: 39409 12/06/2018 ([id number]) 61110 EST. PATIENT, LEVEL III Diagnosis: Acute laryngopharyngitis[ICD10: J06.0] Laura Bahena MD, [facility] CPT-4: 25978 11/30/2018 ([id number]) 22163 EST. 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 CPT-4: 87805 10/31/2018 ([id number]) 04718 EST. PATIENT, LEVEL III Diagnosis: Raynaud's syndrome without gangrene[ICD10: I73.00] Diagnosis: Pain in left hand[ICD10: M79.642] Diagnosis: Pain in right hand[ICD10: M79.641] Karma Bahena MD, [facility] CPT- 4: 11343 10/09/2018 01936 EST. PATIENT, LEVEL III Diagnosis: Cough[ICD10: R05] Diagnosis: Acute laryngopharyngitis[ICD10: J06.0] Diagnosis: Other allergic rhinitis[ICD10: J30.89] Diagnosis: Raynaud's syndrome without gangrene[ICD10: I73.00] Katharine Bahena MD, [facility] CPT-4: 02953 09/12/2018 ([id number]) 91668 EST. PATIENT, LEVEL IV Diagnosis: Raynaud's syndrome without gangrene[ICD10: I73.00] Diagnosis: Pain in right toe(s)[ICD10: M79.674] Diagnosis: Chronic atrial fibrillation[ICD10: I48.2] Karma Bahena MD [facility] CPT-4: 39491 08/14/2018 ([id number]) 70396 EST. PATIENT, LEVEL IV Diagnosis: Chronic atrial fibrillation[ICD10: I48.2] Diagnosis: Sebaceous cyst[ICD10: L72.3] Diagnosis: Raynaud's syndrome without gangrene[ICD10: I73.00] Karma Bahena MD [facility] CPT-4: 45432 07/26/2018 ([id number]) 18788 EST. PATIENT, LEVEL IV Diagnosis: Essential (primary) hypertension[ICD10: I10] Diagnosis: Atrophy of thyroid (acquired)[ICD10: E03.4] Diagnosis: Gastro-esophageal reflux disease without esophagitis[ICD10: K21.9] Karma Bahena MD [facility] CPT-4: 93611 06/04/2018 ([id number]) 39098 EST. PATIENT, LEVEL IV Diagnosis: Essential (primary) hypertension[ICD10: I10] Diagnosis: Atrophy of thyroid (acquired)[ICD10: E03.4] Diagnosis: Other fpc (current) drug therapy[ICD10: Z79.899] Karma Bahena MD [facility] CPT-4: 74724 01/31/2018 ([id number]) 56844 EST. PATIENT, LEVEL IV Diagnosis: Essential (primary) hypertension[ICD10: I10] Diagnosis: Chronic atrial fibrillation[ICD10: I48.2] Diagnosis: Allergic rhinitis due to pollen[ICD10: J30.1] Diagnosis: Cough[ICD10: R05] Karma Bahena MD, [facility] CPT-4: 39627 12/14/2017 11126 EST. PATIENT, LEVEL IV Diagnosis: Other allergic rhinitis[ICD10: J30.89] Katharine Bahena MD [facility] CPT- 4: 98281 12/07/2017 ([id number]) 27233 EST. PATIENT, LEVEL IV Diagnosis: Essential (primary) hypertension[ICD10: I10] Diagnosis: Chronic atrial fibrillation[ICD10: I48.2] Diagnosis: Atrophy of thyroid (acquired)[ICD10: E03.4] Karma Bahena MD [facility] CPT-4: 17701 11/14/2017 ([id number]) 67369 EST. PATIENT, LEVEL IV Diagnosis: Essential (primary) hypertension[ICD10: I10] Diagnosis: Localized edema[ICD10: R60.0] Diagnosis: Encounter for immunization[ICD10: Z23] Diagnosis: Age-related osteoporosis without current pathological fracture[ICD10: M81.0] Karma Bahena MD [facility] CPT-4: 70230 03/27/2017 ([id number]) 01529 EST. PATIENT, LEVEL IV Diagnosis: Essential (primary) hypertension[ICD10: I10] Diagnosis: Chronic atrial fibrillation[ICD10: I48.2] Diagnosis: Dysphonia[ICD10: R49.0] Karma Bahena MD [facility] CPT-4: 53439 01/19/2017 ([id number]) Miscellaneous no charge Diagnosis: Cough[ICD10: R05] Diagnosis: Acute upper respiratory infection, unspecified[ICD10: J06.9] Laura Bahena MD [facility] CPT-4: 00873 11/29/2016 53779 EST. PATIENT, LEVEL III Diagnosis: Cough[ICD10: R05] Diagnosis: Acute laryngopharyngitis[ICD10: J06.0] Katharine Bahena MD [facility] CPT- 4: 33342 11/23/2016 ([id number]) 80549 EST. PATIENT, LEVEL III Diagnosis: Acute laryngopharyngitis[ICD10: J06.0] Laura Bahena MD [facility] CPT-4: 34375 11/21/2016 ([id number]) Miscellaneous no charge Diagnosis: Laceration without foreign body of right forearm, subsequent encounter[ICD10: S51.811D] Karma Bahena MD [facility] CPT-4: 81401 11/17/2016 ([id number]) Miscellaneous no charge Diagnosis: Laceration without foreign body of right forearm, subsequent encounter[ICD10: S51.811D] Karma Bahena MD [facility] CPT-4: 91513 11/14/2016 ([id number]) Miscellaneous no charge Diagnosis: Laceration without foreign body of right forearm, subsequent encounter[ICD10: S51.811D] Karma Bahena MD [facility] CPT-4: 04729 11/11/2016 ([id number]) Miscellaneous no charge Diagnosis: Laceration without foreign body of right forearm, subsequent encounter[ICD10: S51.811D] Karma Bahena MD [facility] CPT-4: 35267 11/10/2016 ([id number]) 88780 EST. PATIENT, LEVEL II Diagnosis: Laceration without foreign body of right forearm, subsequent encounter[ICD10: S51.811D] Karma Bahena MD [facility] CPT-4: 55233 11/08/2016 ([id number]) 10459 EST. PATIENT, LEVEL IV Diagnosis: Atrophy of thyroid (acquired)[ICD10: E03.4] Diagnosis: Chronic atrial fibrillation[ICD10: I48.2] Diagnosis: Laceration without foreign body of right forearm, subsequent encounter[ICD10: S51.811D] Karma Bahena MD [facility] CPT-4: 23059 11/02/2016 ([id number]) 41694 EST. PATIENT, LEVEL III Diagnosis: Laceration without foreign body of right forearm, initial encounter[ICD10: S51.811A] Laura Bahena MD [facility] CPT-4: 32611 10/27/2016 ([id number]) 58631 EST. PATIENT, LEVEL IV Diagnosis: Essential (primary) hypertension[ICD10: I10] Diagnosis: Chronic atrial fibrillation[ICD10: I48.2] Karma Bahena MD [facility] CPT-4: 19431 08/31/2016 ([id number]) 79652 EST. PATIENT, LEVEL IV Diagnosis: Localized edema[ICD10: R60.0] Diagnosis: Essential (primary) hypertension[ICD10: I10] Diagnosis: Abdominal distension (gaseous)[ICD10: R14.0] Karma Bahena MD [facility] CPT-4: 65580 07/27/2016 ([id number]) 73430 EST. PATIENT, LEVEL IV Diagnosis: Essential (primary) hypertension[ICD10: I10] Diagnosis: Chronic atrial fibrillation[ICD10: I48.2] Diagnosis: Localized edema[ICD10: R60.0] Karma Bahnea MD, [facility] CPT-4: 14970 06/23/2016 ([id number]) 45964 EST. PATIENT, LEVEL III Diagnosis: Localized edema[ICD10: R60.0] Karma Bahena MD [facility] CPT-4: 87967 06/09/2016 ([id number]) 16452 EST. PATIENT, LEVEL III Diagnosis: Irritable bowel syndrome without diarrhea[ICD10: K58.9] Diagnosis: Pruritus ani[ICD10: L29.0] Karma Bahena MD [facility] CPT-4: 04084 05/25/2016 ([id number]) 23888 EST. PATIENT, LEVEL III Diagnosis: Abdominal distension (gaseous)[ICD10: R14.0] Diagnosis: Encounter for screening mammogram for malignant neoplasm of breast[ICD10: Z12.31] Karma Bahena MD [facility] CPT-4: 00206 05/17/2016 ([id number]) 07134 EST. PATIENT, LEVEL IV Diagnosis: Essential (primary) hypertension[ICD10: I10] Diagnosis: First degree hemorrhoids[ICD10: K64.0] Diagnosis: Encounter for immunization[ICD10: Z23] Karma Bahena MD, [facility] CPT-4: 74742 03/24/2016 ([id number]) 70663 EST. PATIENT, LEVEL III Diagnosis: Epidermal cyst[ICD10: L72.0] Diagnosis: Essential (primary) hypertension[ICD10: I10] Diagnosis: Chronic atrial fibrillation[ICD10: I48.2] Diagnosis: Other fpc (current) drug therapy[ICD10: Z79.899] Karma Bahena MD [facility] CPT-4: 97123 02/02/2016 ([id number]) 63913 EST. PATIENT, LEVEL III Diagnosis: Acute anal fissure[ICD10: K60.0] Karma Bahena MD, [facility] CPT-4: 98785 2016 ([id number]) 05698 EST. PATIENT, LEVEL III Diagnosis: Allergic rhinitis due to pollen[ICD10: J30.1] Diagnosis: Acute upper respiratory infection, unspecified[ICD10: J06.9] Laura Bahena MD, [facility] CPT-4: 44524 12/21/2015 ([id number]) 87112 EST. PATIENT, LEVEL III Diagnosis: Essential (primary) hypertension[ICD10: I10] Diagnosis: Chronic atrial fibrillation[ICD10: I48.2] Karma Bahena MD, [facility] CPT-4: 89101 11/03/2015 ([id number]) Miscellaneous no charge Diagnosis: Impacted cerumen, right ear[ICD10: H61.21] Katharine Bahena MD [facility] CPT-4: 30750 10/19/2015 72472 EST. PATIENT, LEVEL IV Diagnosis: Impacted cerumen, right ear[ICD10: H61.21] Diagnosis: Other allergic rhinitis[ICD10: J30.89] Katharine Bahena MD, [facility] CPT- 4: 85678 10/13/2015 ([id number]) 66237 EST. PATIENT, LEVEL IV Diagnosis: Essential (primary) hypertension[ICD10: I10] Diagnosis: Chronic atrial fibrillation[ICD10: I48.2] Diagnosis: Urge incontinence[ICD10: N39.41] Diagnosis: Age-related osteoporosis without current pathological fracture[ICD10: M81.0] Karma Bahena MD, [facility] CPT-4: 02165 09/29/2015 ([id number]) 27983 EST. PATIENT, LEVEL IV Diagnosis: Essential (primary) hypertension[ICD10: I10] Diagnosis: Chronic atrial fibrillation[ICD10: I48.2] Diagnosis: Irritable bowel syndrome without diarrhea[ICD10: K58.9] Diagnosis: Unspecified hemorrhoids[ICD10: K64.9] Karma Bahena MD, [facility] CPT-4: 71835 09/15/2015 ([id number]) 40688 EST. 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 CPT-4: 80621 09/01/2015 85786 EST. PATIENT, LEVEL III Diagnosis: Hematuria, unspecified[ICD10: R31.9] Diagnosis: Other urethritis[ICD10: N34.2] Diagnosis: Other specified noninflammatory disorders of vagina[ICD10: N89.8] Karma Bahena MD, [facility] CPT-4: 73411 05/26/2015 20641 EST. PATIENT, LEVEL IV Diagnosis: Gout, unspecified[ICD10: M10.9] Karma Bahena MD, [facility] CPT-4: 90350 05/21/2015 ([id number]) 76857 EST. PATIENT, LEVEL IV Diagnosis: Chronic atrial fibrillation[ICD10: I48.2] Diagnosis: Irritable bowel syndrome without diarrhea[ICD10: K58.9] Diagnosis: Cystocele, unspecified[ICD10: N81.10] Diagnosis: Urge incontinence[ICD10: N39.41] Diagnosis: Fecal smearing[ICD10: R15.1] Diagnosis: Hypothyroidism, unspecified[ICD10: E03.9] Karma Bahena MD, [facility] CPT-4: 03410 05/07/2015 ([id number]) 77301 EST. PATIENT, LEVEL III Diagnosis: Atrial fibrillation[ICD9: 427.31] Diagnosis: Bloating[ICD9: 787.3] Karma Bahena MD, [facility] CPT-4: 18968 03/23/2015 ([id number]) 99448 EST. PATIENT, LEVEL IV Diagnosis: Abdominal pain[ICD9: 789.00] Diagnosis: Atrial fibrillation[ICD9: 427.31] Diagnosis: ENCNTR LONG-ANTICOAG USE[ICD9: V58.61] Karma Bahena MD, [facility] CPT-4: 19274 03/09/2015 ([id number]) 79897 EST. PATIENT, LEVEL IV Diagnosis: HEMATURIA NOS[ICD9: 599.70] Diagnosis: Atrial fibrillation[ICD9: 427.31] Diagnosis: HYPOTHYROIDISM[ICD9: 244.9] Karma Bahena MD, [facility] CPT-4: 28159 10/30/2014 ([id number]) 19473 EST. PATIENT, LEVEL IV Diagnosis: Atrial fibrillation[ICD9: 427.31] Diagnosis: ALLERGIC RHINITIS[ICD9: 477.9] Diagnosis: Need for pneumococcal vaccine[ICD9: V03.82] Diagnosis: Osteoarthritis[ICD9: 715.90] Diagnosis: Osteoporosis[ICD9: 733.00] Karma Bahena MD, [facility] CPT-4: 98385 07/11/2014 ([id number]) 45993 EST. PATIENT, LEVEL III Diagnosis: Urge incontinence[ICD9: 788.31] Diagnosis: Dysuria[ICD9: 788.1] Karma Bahena MD, [facility] CPT-4: 63921 05/20/2014 ([id number]) 33893 EST. PATIENT, LEVEL IV Diagnosis: Atrial fibrillation[ICD9: 427.31] Diagnosis: Hematuria[ICD9: 599.70] Diagnosis: Dysuria[ICD9: 788.1] Diagnosis: ESSENTIAL HYPERTENSION[ICD9: 401.9] Karma Bahena MD, [facility] CPT- 4: 73982 04/29/2014 ([id number]) 49770 EST. PATIENT, LEVEL IV Diagnosis: ESSENTIAL HYPERTENSION[ICD9: 401.9] Diagnosis: ALLERGIC RHINITIS[ICD9: 477.9] Karma Bahena MD, [facility] CPT-4: 17345 03/20/2014 ([id number]) 86185 EST. PATIENT, LEVEL IV Diagnosis: ESSENTIAL HYPERTENSION[ICD9: 401.9] Diagnosis: ATRIAL FIBRILLATION[ICD9: 427.31] Diagnosis: Irritable bowel[ICD9: 564.1] Karma Bahena MD, [facility] CPT-4: 16589 03/05/2014 ([id number]) 13383 EST. PATIENT, LEVEL IV Diagnosis: Esophageal reflux[ICD9: 530.81] Diagnosis: DIARRHEA[ICD9: 787.91] Diagnosis: ABDOM PAIN NOS SITE[ICD9: 789.00] Karma Bahena MD, [facility] CPT- 4: 82189 01/29/2014 ([id number]) 75602 EST. PATIENT, LEVEL III Diagnosis: Irritable bowel[ICD9: 564.1] Diagnosis: DIARRHEA[ICD9: 787.91] Laura Bahena MD, [facility] CPT-4: 87563 01/14/2014 ([id number]) 25945 EST. PATIENT, LEVEL IV Diagnosis: ESSENTIAL HYPERTENSION[ICD9: 401.9] Diagnosis: ATRIAL FIBRILLATION[ICD9: 427.31] Diagnosis: URGE INCONTINENCE[ICD9: 788.31] Diagnosis: MALAISE AND FATIGUE[ICD9: 780.79] Diagnosis: Dyspnea[ICD9: 786.09] Karma Bahena MD [facility] CPT-4: 31046 12/25/2013 ([id number]) 84369 EST. PATIENT, LEVEL IV Diagnosis: ESSENTIAL HYPERTENSION[SNOMED: [id number]] Diagnosis: ATRIAL FIBRILLATION[ICD9: 427.31] Diagnosis: Abdominal pain[ICD9: 789.00] Diagnosis: ESOPHAGEAL REFLUX[ICD9: 530.81] Karma Bahena MD [facility] CPT-4: 12759 11/27/2013 ([id number]) 38707 EST. PATIENT, LEVEL IV Diagnosis: ESSENTIAL HYPERTENSION[SNOMED: 02263092] Diagnosis: ATRIAL FIBRILLATION[ICD9: 427.31] Diagnosis: Chronic osteoarthritis[ICD9: 715.90] Karma Bahena MD [facility] CPT- 4: 14100 09/12/2013 ([id number]) 69746 EST. PATIENT, LEVEL III Diagnosis: ESSENTIAL HYPERTENSION[SNOMED: 97837000] Diagnosis: Bruising[ICD9: 924.9] Diagnosis: ENCNTR LONG-RX USE NEC[ICD9: V58.69] Karma Bahena MD [facility] CPT- 4: 14928 08/15/2013 ([id number]) 01913 EST. PATIENT, LEVEL IV Diagnosis: ESSENTIAL HYPERTENSION[SNOMED: 62113550] Diagnosis: Hematuria[ICD9: 599.70] Diagnosis: Dysuria[ICD9: 788.1] Karma Bahena MD [facility] CPT-4: 82841 08/01/2013 ([id number]) 29037 EST. PATIENT, LEVEL III Diagnosis: UTI[ICD9: 599.0] Diagnosis: Hematuria[ICD9: 599.70] Laura Bahena MD [facility] CPT-4: 81080 07/01/2013 ([id number]) 16137 EST. PATIENT, LEVEL III Diagnosis: ATRIAL FIBRILLATION[ICD9: 427.31] Diagnosis: ESSENTIAL HYPERTENSION[SNOMED: 97158203] Karma Bahena MD [facility] CPT-4: 19733 05/29/2013 ([id number]) 39870 EST. PATIENT, LEVEL IV Diagnosis: Atrial fibrillation[ICD9: 427.31] Diagnosis: Encounter for monitoring digoxin therapy[ICD9: V58.83] Diagnosis: ESSENTIAL HYPERTENSION[SNOMED: 90604437] Karma Bahena MD, [facility] CPT-4: 92391 05/15/2013 ([id number]) 24210 EST. PATIENT, LEVEL IV Diagnosis: ESSENTIAL HYPERTENSION[SNOMED: 85003322] Diagnosis: ATRIAL FIBRILLATION[ICD9: 427.31] Diagnosis: PALPITATIONS[ICD9: 785.1] Diagnosis: Dizziness and giddiness[ICD9: 780.4] Karma Bahena MD, [facility] CPT- 4: 68244 04/23/2013 ([id number]) 79587 EST. PATIENT, LEVEL III Diagnosis: OTHER CONSTIPATION[ICD9: 564.09] Diagnosis: ABDOM PAIN NOS SITE[ICD9: 789.00] Laura Bahena MD, [facility] CPT- 4: 88577 03/21/2013 ([id number]) 85117 EST. PATIENT, LEVEL IV Diagnosis: ESSENTIAL HYPERTENSION[SNOMED: 16908873] Diagnosis: Atrial fibrillation[ICD9: 427.31] Karma Bahena MD, [facility] CPT- 4: 34273 01/16/2013 ([id number]) Miscellaneous no charge Diagnosis: CELLULITIS OF HAND[ICD9: 682.4] Karma Bahena MD, [facility] CPT-4: 49932 12/19/2012 ([id number]) Miscellaneous no charge Diagnosis: ENCOUNTER FOR THERAPEUTIC DRUG MONITORING[ICD9: V58.83] Diagnosis: CELLULITIS OF HAND[ICD9: 682.4] Karma Bahena MD, [facility] CPT-4: 49165 12/14/2012 Miscellaneous no charge Diagnosis: CELLULITIS OF HAND[ICD9: 682.4] [facility] CPT-4: 88815 12/12/2012 92717 EST. PATIENT, LEVEL II Diagnosis: CELLULITIS OF HAND[ICD9: 682.4] Diagnosis: ENCNTR LONG-RX USE NEC[ICD9: V58.69] Diagnosis: LONG-TERM USE ANTICOAGUL[ICD9: V58.61] Karma Bahena MD [facility] CPT-4: 36783 12/11/2012 ([id number]) 42550 EST. PATIENT, LEVEL III Diagnosis: CELLULITIS OF HAND[ICD9: 682.4] Karma Bahena MD [facility] CPT-4: 18566 12/10/2012 ([id number]) 35802 EST. PATIENT, LEVEL IV Diagnosis: Elevated digoxin level[ICD9: 796.0] Diagnosis: ATRIAL FIBRILLATION[ICD9: 427.31] Diagnosis: Inflammatory arthritis[ICD9: 714.9] Karma Bahena MD [facility] CPT- 4: 56310 10/30/2012 ([id number]) 30975 EST. PATIENT, LEVEL IV Diagnosis: Atrial fibrillation[ICD9: 427.31] Diagnosis: Anticoagulant long-term use[ICD9: V58.61] Diagnosis: ESSENTIAL HYPERTENSION[SNOMED: 97596690] Karma Bahena MD [facility] CPT-4: 42814 08/08/2012 ([id number]) 22719 EST. PATIENT, LEVEL IV Diagnosis: ABDOM PAIN NOS SITE[ICD9: 789.00] Diagnosis: Constipation - functional[ICD9: 564.09] Diagnosis: EDEMA[ICD9: 782.3] Diagnosis: ATRIAL FIBRILLATION[ICD9: 427.31] Karma Bahena MD [facility] CPT- 4: 28341 07/11/2012 ([id number]) 51951 EST. PATIENT, LEVEL III Diagnosis: Cystocele[ICD9: 618.01] Diagnosis: Rectocele[ICD9: 618.04] Karma Bahena MD [facility] CPT-4: 19101 05/08/2012 [id number]) 68117 EST. 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 CPT-4: 03172 04/18/2012 ([id number]) Patient admitted to the hospital from clinic (NO CHARGE) Diagnosis: Abdominal pain[ICD9: 789.00] Diagnosis: Nausea and vomiting[ICD9: 787.01] Diagnosis: ESSENTIAL HYPERTENSION[SNOMED: 31780576] Karma Bahena MD [facility] CPT-4: 61070T 03/13/2012 ([id number]) 89917 EST. PATIENT, LEVEL IV Diagnosis: ATRIAL FIBRILLATION[ICD9: 427.31] Diagnosis: URGE INCONTINENCE[ICD9: 788.31] Diagnosis: MALAISE AND FATIGUE[ICD9: 780.79] Diagnosis: Dyspnea[ICD9: 786.09] Karma Bahena MD, [facility] CPT-4: 11414 02/20/2012 54611 EST. PATIENT, LEVEL IV Diagnosis: Hematuria[ICD9: 599.70] Diagnosis: Vaginal yeast infection[ICD9: 112.1] Diagnosis: ATRIAL FIBRILLATION[ICD9: 427.31] Laura Bahena MD [facility] CPT- 4: 12688 02/13/2012 ([id number]) 05728 EST. PATIENT, LEVEL IV Diagnosis: Atrial fibrillation[ICD9: 427.31] Diagnosis: Anticoagulation goal of INR 2 to 3[ICD9: V58.83] Diagnosis: Urinary incontinence, urge[ICD9: 788.31] Diagnosis: ESSENTIAL HYPERTENSION[SNOMED: 89832135] Karma Bahena MD [facility] CPT-4: 90832 02/01/2012 ([id number]) 82609 EST. PATIENT, LEVEL IV Diagnosis: Atrial fibrillation[ICD9: 427.31] Diagnosis: Anticoagulant long-term use[ICD9: V58.61] Diagnosis: ESSENTIAL HYPERTENSION[SNOMED: 92570193] Karma Bahena MD, [facility] CPT-4: 17499 2012 18901 EST. PATIENT, LEVEL IV Diagnosis: UTI[ICD9: 599.0] Diagnosis: ESSENTIAL HYPERTENSION[SNOMED: 95859863] Diagnosis: MALAISE AND FATIGUE[ICD9: 780.79] Diagnosis: Esophageal reflux[ICD9: 530.81] Karma Bahena MD [facility] CPT-4: 68620 12/01/2011 ([id number]) 41802 EST. PATIENT, LEVEL IV Diagnosis: UTI (urinary tract infection)[ICD9: 599.0] Diagnosis: ESSENTIAL HYPERTENSION[SNOMED: 49988359] Diagnosis: URGE INCONTINENCE[ICD9: 788.31] Karma Bahena MD, [facility] CPT-4: 37079 11/23/2011 ([id number]) 71048 EST. PATIENT, LEVEL IV Diagnosis: ESSENTIAL HYPERTENSION[SNOMED: 25452827] Diagnosis: IMPACTED CERUMEN[ICD9: 380.4] Diagnosis: MALAISE AND FATIGUE[ICD9: 780.79] Diagnosis: EDEMA[ICD9: 782.3] Karma Bahena MD, [facility] CPT-4: 72225 10/03/2011 69710 EST. PATIENT, LEVEL IV Diagnosis: ESSENTIAL HYPERTENSION[SNOMED: 56038628] Diagnosis: Generalized osteoarthritis[ICD9: 715.09] Diagnosis: OSTEOPOROSIS[ICD9: 733.00] Karma Bahena MD [facility] CPT-4: 79902 08/08/2011 61051 EST. PATIENT, LEVEL IV Diagnosis: Muscle cramp[ICD9: 729.82] Diagnosis: Torticollis[ICD9: 723.5] Diagnosis: Rash[ICD9: 782.1] Karma Bahena MD [facility] CPT-4: 80314 05/09/2011 13367 EST. PATIENT, LEVEL IV Diagnosis: Leg cramps, sleep related[ICD9: 327.52] Diagnosis: Underweight[ICD9: 783.22] Karma Bahena MD [facility] CPT-4: 36284 03/29/2011 25496 EST. PATIENT, LEVEL IV Diagnosis: UTI[ICD9: 599.0] Diagnosis: Urge incontinence[ICD9: 788.31] Diagnosis: Loss of weight[ICD9: 783.21] Diagnosis: Palpitations[ICD9: 785.1] Diagnosis: Peripheral neuropathy, idiopathic[ICD9: 356.9] Karma Bahena MD, [facility] CPT-4: 74203 03/15/2011 Plan of Care Planned Activity Notes [...] Completed 01/03/2019 Appointment: Laura Colin WPtel: [phone] [phone] (30 min) Complex 12/13/2018 Visit Plan: Afib -hyponatremia -generalized weakness -Dr Bahena in to evaluate patient -plan to admit for further evaluation and treatment - will repeat labs -start IVF-monitor with telemetry and consult Dr Rock Depression -restart lexapro 5mg daily 12/10/2018 Appointment: Laura Colin WPtel: [phone] [phone] (30 min) Complex 12/10/2018 Patient Education: Patient [...] to monitor 12/06/2018 Appointment: Laura Colin WPtel: [facility]3 [phone] (15 min) Moderate 12/06/2018 Patient Education: Patient Medication Summary Completed 12/06/2018 Visit Plan: Pharyngitis-Discussed natural and expected course of this diagnosis and need to alert me if symptoms do not follow expected course, or if any worse. Recommended salt water gargles as needed for pain. Ty lenol/motrin as needed for fever/discomfort. 11/30/2018 Appointment: Laura Colin WPtel: [phone] [phone] (30 min) Complex 11/30/2018 Patient Education: Patient Medication Summary Completed 11/30/2018 Appointment: Karma Bahena WPtel: [address] [place], [place] [phone] (15 min) Moderate 11/14/2018 [...] for imvexxy 10/31/2018 Appointment: Karma Bahena WPtel: [facility]1 [facility] (15 min) Moderate 10/31/2018 Patient Education: Patient Medication Summary Completed 10/31/2018 Visit Plan: Hand pain with arthritis - Raynaud syndrome - discussed with pt - RX for Voltaren gel sent to the pharmacy. continue with amlodipine. 10/09/2018 Appointment: Karma Bahena WPtel: [address] [place], [place] [phone] (15 min) Moderate 10/09/2018 Patient Education: Patient Medication Summary Completed 10/09/2018 Appointment: Karma Bahena WPtel: [facility]1 [facility] (15 min) Moderate 10/01/2018 Visit Plan: URI [...] or concerns. 09/12/2018 Appointment: Katharine Dai WPtel: [address] [place], [place] [phone] (15 min) Moderate 09/12/2018 Patient Education: Patient Medication Summary Completed 09/12/2018 Appointment: Karma Bahena WPtel: [facility]6 [facility]6[address] (15 min) Moderate 08/16/2018 Visit Plan: I [...] surgically removed. 08/14/2018 Appointment: Karma Bahena WPtel: [facility]4 [facility]6676[facility] (15 min) Moderate 08/14/2018 Patient Education: Patient [...] removed. 07/26/2018 Appointment: Karma Bahena WPtel: [phone] [facility] (15 min) Moderate 07/26/2018 Patient Education: Patient [...] not improving. 06/04/2018 Appointment: [phone] (15 min) Moderate 06/04/2018 Patient Education: Patient Medication Summary Completed 06/04/2018 Appointment: [phone] [place] (15 min) Moderate 03/14/2018 Visit Plan: [...] control. 01/31/2018 Appointment: Suhas [phone] [facility] - Annual Wellness Visit 01/31/2018 [...] spray. 12/14/2017 Appointment: Karma Bahena WPtel: [phone] [facility] (15 min) Moderate 12/14/2017 Patient Education: Patient [...] allergy spray. 12/07/2017 Appointment: Katharine Dai WPtel: [facility] (15 min) Moderate 12/07/2017 Patient Education: [...] q 3 months or q 6 m [facility] based on previous levels of control. 11/14/2017 Appointment: Karma Bahena WPtel: [facility] (15 min) Moderate 11/14/2017 Patient Education: Patient [...] today. 03/27/2017 Appointment: [facility]hen[facility]Ptel: [phone] [facility] (15 min) Moderate 03/27/2017 Patient Education: Patient [...] surrogate. 01/23/2017 Appointment: Katharine Dai [facility]Ptel: [phone] [facility] [facility] - Annual Wellness Visit 01/23/2017 [...] becoming uncontrolled. 01/19/2017 Appointment: Karma Bahena WPtel: [facility]6 [facility]6[address] (15 min) Moderate 01/19/2017 Patient Education: Patient Medication Summary Completed 01/19/2017 Care Plan: Referral Order SNOMED-CT : 852564590 Pending 01/19/2017 Appointment: Karma Bahena WPtel: [facility]2 [facility]6676[facility] (15 min) Moderate 01/04/2017 Appointment: Karma Bahena WPtel: [facility]3 [facility]66[facility] (15 min) Moderate 12/28/2016 Visit Plan: ARG-gkuub-qpa zpack-call if symptoms do not resolve or if any worse. Patient verbalized understanding of plan. 11/29/2016 Appointment: Laura Colin WPtel: [facility]2 [phone] [place] (15 min) Moderate 11/29/2016 Patient [...] patient's pharmacy. 11/23/2016 Appointment: Katharine Dai WPtel: [facility]0 [facility] (15 min) Moderate 11/23/2016 Patient Education: Patient Medication Summary Completed 11/23/2016 Visit Plan: Pharyngitis-Discussed natural and expected course of this diagnosis and need to alert me if symptoms do not follow expected course, or if any worse. Recommended salt water gargles as needed for pain. Ty lenol/motrin as needed for fever/discomfort. 11/21/2016 Appointment: Laura Colin WPtel: [phone] [phone] [place] (15 min) Moderate 11/21/2016 Patient [...] symptoms. 11/08/2016 Appointment: Karma Bahena WPtel: [phone] [facility] [place] (10 min) Simple 11/08/2016 Patient Education: [...] bactroban, etc. 11/02/2016 Appointment: Kar[facility] Bahena [facility]Ptel: [phone] [place] (15 min) Moderate 11/02/2016 Appointment: Nurse Visit 11/02/2016 Patient Education: Patient Medication Summary Completed 11/02/2016 Appointment: Nurse Visit 10/31/2016 Visit Plan: Laceration-right forearm- Pt was instructed to keep the wound clean, cleanse with sterile saline, use bactroban ointment, call if redness, pustular drainage, or any other acute concerns. Follow up Monday for dressing changes. 10/27/2016 Appointment: Laura Colin [facility]Ptel: [phone] (30 min) Complex 10/27/2016 Patient Education: Patient [...] symptoms. 08/31/2016 Appointment: Kar[facility] Bahen[facility]Ptel[phone] (15 min) Moderate 08/31/2016 Patient Education: [...] your swelling. 07/27/2016 Appointment: Karma Bahena WPtel: [phone] (15 min) Moderate 07/27/2016 Patient Education: [...] of lasix 06/23/2016 Appointment: Karma Bahena WPtel: [facility]2 [facility]6676[facility] (15 min) Moderate 06/23/2016 Patient Education: Patient Medication Summary Completed 06/23/2016 Patient Education: Hypertension Completed 06/23/2016 Visit Plan: Edema - with Dyspnea - RX for laxis and compression socks - pt to call if not improving. 06/09/2016 Appointment: Karma Bahena WPtel: [facility]2 [facility]6676[facility] (15 min) Moderate 06/09/2016 Patient Education: Patient Medication Summary Completed 06/09/2016 Visit Plan: Abdominal pain and rectal itching - recommended pt to use betamethasone on vaginal/rectal region, monitor symptoms call if not improving. Continue with beano and simethicone 05/25/2016 Appointment: Kamra Bahena WPtel: [facility]1 [facility]6676[facility] (15 min) Moderate 05/25/2016 Patient Education: Patient Medication Summary Completed 05/25/2016 Care Plan: SCREENINGMAMMOGRAPHYDIGITAL LOINC : 32754-1 Pending 05/20/2016 Visit Plan: Abdominal distension - use simethicone four times daily - after meals - if it does not help - in the next two weeks - call the office and we will do a ct scan of the abdomen and pelvis 05/17/2016 Appointment: Karma Bahena WPtel: [facility]3 [facility] (15 min) Moderate 05/17/2016 Patient Education: Patient [...] ointment 03/24/2016 Appointment: Karma Bahena WPtel: [phone] [facility]6676[facility] (30 min) Complex 03/24/2016 Patient Education: Patient [...] spray. 12/21/2015 Appointment: Laura Colin WPtel: [phone] [phone] (30 min) Complex 12/21/2015 Patient Education: [...] uncontrolled. 11/03/2015 Appointment: Karma Bahena WPtel: [phone] [facility] (15 min) Moderate 11/03/2015 Patient Education: Patient [...] Hypertension Completed 09/01/2015 Appointment: Karma Bahena WPtel: [address] [place], [place] [address] (15 min) Moderate 07/13/2015 Visit Plan: Hematuria/Urethritis [...] 05/13/2015 Care Plan: Referral Order SNOMED-CT : [id number] Ordered 05/08/2015 Visit Plan: Atrial Fibrillation - [...] Dr. Collins. 05/07/2015 Appointment: Karma Bahena WPtel: [facility] (15 min) Moderate 05/07/2015 Patient Education: [...] becoming uncontrolled. 10/30/2014 Appointment: Karma Bahena WPtel: [address] [place], [place] [phone] Follow up 10/30/2014 Patient Education: Patient Medication Summary Completed 10/30/2014 Appointment: Karma Bahena WPtel: [address] [place], [place] [phone] Follow up 07/22/2014 Visit Plan: Atrial Fibrillation [...] in hospital. 07/11/2014 Appointment: Karma Bahena WPtel: [facility]4 [facility] Sick 07/11/2014 Patient Education: Patient Medication Summary Completed 07/11/2014 Appointment: Karma Bahena WPtel: [facility]1 [facility] [place] Follow up 07/07/2014 Visit Plan: Urinary [...] times weekly. 05/20/2014 Appointment: Karma Bahena WPtel: [address] [place] [address] Follow up 05/20/2014 Patient Education: Patient Medication Summary Completed 05/20/2014 Appointment: Karma Bahena WPtel: [address] [place], [place] [phone] [place] Lab Draw 05/14/2014 Patient Education: Patient [...] recommended vesicare. 04/29/2014 Appointment: Karma Bahena WPtel: [facility]2 [facility] [place] Follow up 04/29/2014 Patient Education: Patient [...] allergy spray. 03/20/2014 Appointment: Karma Bahena WPtel: [address] [place], [place] [phone] [facility] 03/20/2014 Patient Education: Patient Medication Summary Completed [...] becoming uncontrolled. 03/05/2014 Appointment: Karma Bahena WPtel: [facility]2 [facility] Follow up 03/05/2014 Patient Education: Patient Medication [...] report. 01/29/2014 Appointment: Kar[facility] Bahena WPtel: [phone] Follow up 01/29/2014 Patient Education: Patient Medication [...] exposure,and dyspnea on exertion - will ask [facility] do an overnight oxygen study on [place] as she has cardiac history, weight loss, and nocturnal hypoxemia may be a part of her weight loss and fatigue. 12/25/2013 Appointment: Karma Bahena WPtel: [phone] [facility] Follow up 12/25/2013 Patient Education: Patient [...] daily. 11/27/2013 Appointment: Karma Bahena WPtel: [phone] [facility] Follow up 11/27/2013 Patient Education: Patient [...] heart rate. Osteoarthritis - send pt to [facility] physical therapy for gereral osteoarhtritis program for strengthening and pain reduction. Hypertension - well controlled - continue with current medications, continue with no added salt diet. Pt has been encouraged to exercise daily. The pt has been advised to call the office if there are any acute concerns about change in blood pressure readings at home. 09/12/2013 Appointment: Karma Bahena WPtel: [phone] [facility] [place] Follow up 09/12/2013 Patient Education: Patient Medication Summary Completed 09/12/2013 Patient Education: Hypertension Completed 09/12/2013 Appointment: Karma Bahena WPtel: [phone] [facility] [place] Follow up 08/21/2013 Visit Plan: Hypertension [...] coumadin-check PT/INR 08/15/2013 Appointment: Karma Bahena WPtel: [facility] [place] Follow up 08/15/2013 Patient Education: Patient [...] of urethra. 08/01/2013 Appointment: Karma Bahena WPtel: [address] [place] [address] [place] Follow up 08/01/2013 Patient Education: Patient Medication Summary Completed 08/01/2013 Patient Education: Hypertension Completed 08/01/2013 Appointment: Laura Colin WPtel: [phone] [place] Lab Draw 07/29/2013 Patient Education: Patient Medication Summary Completed 07/29/2013 Visit Plan: Osteoporosis-prolia on june 25-patient to let Dr Hansen know 07/01/2013 Appointment: Laura Colin WPtel: [phone] [place] Follow up 07/01/2013 Appointment: Karma Bahena WPtel: [phone] [facility] Follow up 07/01/2013 Patient Education: Patient Medication Summary Completed 07/01/2013 Appointment: Karma Bahena WPtel: [address] [place] [id number] Follow up 06/25/2013 Appointment: Karma Bahena WPtel: [address] [place], [place] [phone] Lab Draw 06/20/2013 Patient Education: Patient Medication Summary Completed 06/20/2013 Appointment: Karma Bahena WPtel: [address] [place] [id number] Lab Draw 06/19/2013 Visit Plan: Atrial Fibrillation [...] at home. 05/29/2013 Appointment: Karma Bahena WPtel: [address] [place], [place] [phone] Follow up 05/29/2013 Patient Education: Patient Medication [...] at home. 05/15/2013 Appointment: Karma Bahena WPtel: [address] [place] [id number] Other 05/15/2013 Patient Education: Patient Medication Summary [...] shot today. 04/23/2013 Appointment: Karma Bahena WPtel: [facility]2 [facility] [place] Other 04/23/2013 Patient Education: Patient Medication [...] this regimen. 03/21/2013 Appointment: Laura Colin WPtel: [facility]5 [phone] Follow up 03/21/2013 Patient Education: Patient [...] becoming uncontrolled. 01/16/2013 Appointment: Karma Bahena WPtel: [phone] [facility] [place] Follow up 01/16/2013 Patient Education: Patient Medication Summary Completed 01/16/2013 Patient Education: Hypertension Completed 01/16/2013 Visit Plan: Wound Instructions - Pt was instruced to keep the wound clean, wash with antibacterial soap, use triple antibiotic ointment, call if redness, pustular drainage, or any other acute conerns. 12/19/2012 Appointment: Karma Bahena WPtel: [facility]5 [facility] Other 12/19/2012 Patient Education: Patient Medication Summary Completed 12/19/2012 Patient Education: Patient Medication Summary Completed 12/17/2012 Visit Plan: Cellulitis - improved- monitor symptoms - need to check handon Monday morning. 12/14/2012 Appointment: Karma Bahena WPtel: [address] [place], [place] [phone] Follow up 12/14/2012 Patient Education: Patient Medication Summary Completed 12/14/2012 Visit Plan: Cellulitis - improved- monitor symptoms - need to check handon Monday morning. 12/12/2012 Appointment: Karma Bahena WPtel: [address] [place], [place] [phone] Work-in 12/12/2012 Patient Education: Patient Medication Summary [...] warmth, discharge. 12/10/2012 Appointment: Karma Bahena WPtel: [facility]5 [facility] Other 12/10/2012 Patient Education: Patient Medication Summary [...] uncontrolled. 10/30/2012 Appointment: Josef Karma WPtel: [phone] [facility] Follow up 10/30/2012 Patient Education: Patient Medication Summary Completed 10/30/2012 Appointment: Laura Colin WPtel: [facility]5 [phone] Lab Draw 09/13/2012 Patient Education: Patient [...] is between 2.0 and 3.5. 08/08/2012 Appointment: [place] Karma WPtel: [facility]5 [facility] Other 08/08/2012 Patient Education: Patient Medication Summary [...] this regimen. 07/11/2012 Appointment: Karma Bahena WPtel: [address] [place], [place] [phone] swelling, leg edema Other 07/11/2012 Patient Education: [...] medication vaginally. 05/08/2012 Appointment: Karma Bahena WPtel: [address] [place], [place] [phone] [place] Follow up 05/08/2012 Patient Education: Patient [...] during hospitalization. 04/18/2012 Appointment: Karma Bahena WPtel: [address] [place], [place] [phone] [place] Follow up 04/18/2012 Patient Education: Patient Medication Summary Completed 04/18/2012 Patient Education: High Blood Pressure: Essential Hypertension Completed 04/18/2012 Appointment: Karma Bahena WPtel: [address] [place], [place] [phone] [place] Follow up 04/09/2012 Appointment: Kar[facility] Bahena [facility]Ptel: [phone] [place] Lab Draw 04/04/2012 Appointment: Laura Colin WPtel: [facility] [id number] [place] Lab Draw 03/19/2012 Visit Plan: [...] Completed 03/13/2012 Appointment: [facility]el[id number] [facility] 03/08/2012 Patient Education: [...] cardiac rehab. 02/20/2012 Appointment: Karma Bahena WPtel: [facility] Other 02/20/2012 Patient Education: Patient Medication Summary [...] becoming uncontrolled. 02/13/2012 Appointment: Laura Colin WPtel: [phone] Other 02/13/2012 Patient Education: Patient Medication Summary Completed 02/13/2012 Appointment: Karma Bahena WPtel: [address] [place], [place] [phone] Lab Draw 02/07/2012 Visit Plan: Atrial Fibrillation [...] the medication. 02/01/2012 Appointment: Karma Bahena WPtel: [id number] Other 02/01/2012 Patient Education: Patient Medication Summary Completed 02/01/2012 Patient Education: High Blood Pressure: Essential Hypertension Completed 02/01/2012 Appointment: Karma Bahena WPtel: [id number] [facility] 01/17/2012 Visit Plan: Atrial Fibrillation [...] at home. 2012 Appointment: Karma Bahena WPtel: [id number] Other 2012 Patient Education: Patient Medication Summary Completed 2012 Patient Education: High Blood Pressure: Essential Hypertension Completed 2012 Appointment: Karma Bahena WPtel: [id number] Follow up 12/20/2011 Visit Plan: Dicyclomine up [...] emergency room. 12/01/2011 Appointment: JosefKarma WPtel[id number] [place] Other 12/01/2011 Patient Education: Patient Medication [...] resolves. 11/23/2011 App[facility]ment: [phone] Other 11/23/2011 Patient Education: Patient Medication Summary Completed 11/23/2011 Patient Education: High Blood Pressure: Essential Hypertension Completed 11/23/2011 Visit Plan: Cerumen Impaction - The impacted cerumen was removed with the use of either ear currette alone or in combination with ear curette and water pick. The patient tolerated the procedure without incident and had improvement in hearing 10/17/2011 Appointment: Laura Colin WPtel: [phone] [id number] Other 10/17/2011 Patient Education: Patient Medication [...] by irrigation. 10/03/2011 Appointment: Karma Bahena WPtel: [facility] [place] [address] [place] Other 10/03/2011 Patient Education: Patient Medication [...] is evidence. 08/08/2011 Appointment: Karma Bahena WPtel: [phone] [facility] Other 08/08/2011 Patient Education: Patient Medication Summary Completed 08/08/2011 Patient Education: High Blood Pressure: Essential Hypertension Completed 08/08/2011 Visit Plan: Muscle cramps - the cramps are a little better, continue with the Diltiazem and it is okay to use the over the counter supplement with quinine - but use it sparingly. For the rash, use the prescripti on the occupational therapy asst prescribed for the itching , call if the rash is not improved. Torticollis - continue with physical therapy, call if the neck muscles do not continue to show improvement. 05/09/2011 Appointment: Karma Bahena WPtel: [address] [place] [address] Other 05/09/2011 Patient Education: Patient Medication Summary [...] aerobics. 03/29/2011 Appointment: Karma Bahena WPtel: [address] [place] [address] [place] Other 03/29/2011 Patient Education: Patient Medication Summary Completed 03/29/2011 Appointment: Karma Bahena WPtel: [address] [place], [place] [phone] Other 03/17/2011 Visit Plan: UTI - UA negative. Urge incontinence- restart on the vesicare- at 5 mg. Continue to avoid caffinated foods/fluids. Peripheral Neuropathy - per cash posting clerk report - Continue with the metanex. Loss of weight - WEIGHT CHECK IN 2 WKS. Palpitations- likely stress induced. If the symptoms worsen, call the office. 03/15/2011 Appointment: Karma Bahena WPtel: [address] [place], [place] [phone] Follow up 03/15/2011 Patient Education: Patient Medication [...] avoid caffinated foods/fluids. Peripheral Neuropathy - per cash posting clerk report - Continue with the metanex. Loss [...] therefore, would not change the medication. . [id number] zpack-call if symptoms do not resolve or [...] For the rash, use the prescription the occupational therapy asst prescribed for the itching , call if [...] heart rate. Osteoarthritis - send pt to [facility] physical therapy for gereral osteoarhtritis program for [...] exposure,and dyspnea on exertion - will ask [facility] do an overnight oxygen study [...] the insertion of the medication vaginally. . Afib -hyponatremia -generalized weakness -Dr Bahena [...] uncontrolled. Low sodium -check level today . Medicare Exam - today we discussed [...]
[2019-01-07 08:22] LABS: SMEAR SCAN COMMENT YES
--- OUTSIDE RECORDS SUMMARY | 2019-01-07 08:27 | XMS REPORT | CCD ---
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 Unknown Has never used illegal drugs 03/15/2011 Allergies, Adverse Reactions, Alerts Substance Reaction Codes Entered Date Inactivated Date Status BACTINE RxNorm: 228083 03/04/2011 No Inactive Date Active MICONAZOLE RxNorm: 6932 03/04/2011 No Inactive Date Active NEOSPORIN RxNorm: 996193 03/04/2011 No Inactive Date Active NEOMYCIN RxNorm: 7299 03/04/2011 No Inactive Date Active CORTISPORIN RxNorm: 79067 03/04/2011 No Inactive Date Active bactrim RxNorm: 818193 03/13/2012 No Inactive Date Active AUGMENTIN diarrhea RxNorm: 601028 2016 No Inactive Date Active METRONIDAZOLE Unknown 03/04/2011 No Inactive Date Active NYSTATIN Unknown 03/04/2011 No Inactive Date Active PNEUMOCOCCAL VACCINE Unknown 03/04/2011 No Inactive Date Active Past Medical History Illness Codes Condition Status Onset Date Resolved Date Chronic atrial fibrillation ICD-9: 427.31 ICD-10: I48.2 Active 12/25/2013 Unknown Cough ICD-9: 786.2 ICD-10: R05 Active 11/23/2016 Unknown Hypo-osmolality and hyponatremia ICD-9: 276.1 ICD-10: E87.1 Active 12/10/2018 Unknown Major depressive disorder, recurrent, 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 Active 12/10/2018 Unknown Muscle weakness (generalized) ICD-9: 728.87 ICD-10: M62.81 Active 12/10/2018 Unknown Paroxysmal atrial fibrillation ICD-9: 427.31 ICD-10: I48.0 Active 12/10/2018 Unknown Acute laryngopharyngitis ICD-9: 465.0 [...] 401.9 ICD-10: I10 Active 12/25/2013 Unknown Other supervisor intermediates (current) drug therapy ICD-9: V58.83 ICD-10: Z79.899 [...] 706.2 ICD-10: L72.0 Active 02/01/2016 Unknown Other custodial (current) drug therapy ICD-9: V58.69 [...] Cough ICD-9: 786.2 ICD-10: R05 11/23/2016 Active Hypo-osmolality and hyponatremia ICD-9: 276.1 ICD-10: E87.1 12/10/2018 Active Major depressive disorder, recurrent, 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 12/10/2018 Active Muscle weakness (generalized) ICD-9: 728.87 ICD-10: M62.81 12/10/2018 Active Paroxysmal atrial fibrillation ICD-9: 427.31 ICD-10: I48.0 12/10/2018 Active Acute laryngopharyngitis ICD-9: 465.0 ICD-10: [...] ICD-9: 401.9 ICD-10: I10 12/25/2013 Active Other supervisor intermediates (current) drug therapy ICD-9: V58.83 ICD-10: Z79.899 [...] 706.2 ICD-10: L72.0 02/01/2016 Active Other supervisor intermediates (current) drug therapy ICD-9: V58.69 ICD-10: Z79.899 [...] Start Date Stop Date Status Fill Instructions Lexapro 5 mg tablet RxNorm: 312949 1 Tablet(s) PO QPM 12/18/2018 06/15/2019 Active Lexapro 5 mg tablet RxNorm: 521658 1 Tablet(s) PO QPM 12/10/2018 12/17/2018 Inactive Keflex 500 mg capsule RxNorm: 714847 1 Capsule(s) PO TID 12/07/2018 12/13/2018 Inactive digoxin 125 mcg tablet RxNorm: 667996 Tablet(s) every other day 12/06/2018 11/30/2019 Active Keflex 500 mg capsule RxNorm: 472985 1 Capsule(s) PO TID 11/30/2018 12/06/2018 Inactive pantoprazole 40 mg tablet,delayed release RxNorm: 789768 1 TABLET(S) PO DAILY 11/29/2018 11/23/2019 Active amlodipine 5 mg tablet RxNorm: 904719 Tablet(s) 1/2 TABLET(S) PO DAILY MAY TAKE AN EXTRA 1/2 PILL AT THE END OF THE DAY IF BLOOD PRESSURE IS ELEVATED OVER 140 11/29/2018 05/27/2019 Active cyclobenzaprine 5 mg tablet RxNorm: 718439 1/2 Tablet(s) PO TID TABLET(S) 1/2 TABLET(S) PO Q8 NEEDED MUSCLE SPASMS 10/31/2018 04/28/2019 Active Imvexxy Starter Pack 4 mcg vaginal insert, dose pack RxNorm: 8014753 1 dose VAG BIW 10/31/2018 01/28/2019 Active Voltaren 1 % topical gel RxNorm: 935068 2 Gram(s) TOP QID on left shoulder and bilateral hands 10/17/2018 05/14/2019 Active PA APPROVED UNTIL JUL 09 2019 [id number] amlodipine 5 mg tablet RxNorm: 149233 1/2 TABLET(S) PO DAILY MAY TAKE AN EXTRA 1/2 PILL AT THE END OF THE DAY IF BLOOD PRESSURE IS ELEVATED OVER 140 10/15/2018 11/28/2018 Inactive Patient requests 90 days supply Voltaren 1 % topical gel RxNorm: 953633 2 Gram(s) TOP QID on left shoulder and bilateral hands 10/09/2018 10/16/2018 Inactive levothyroxine 75 mcg tablet RxNorm: 427079 1 Tablet(s) PO daily 09/19/2018 01/16/2019 Active Keflex 500 mg capsule RxNorm: 061131 1 Capsule(s) PO TID 09/12/2018 09/18/2018 Inactive spironolactone 25 mg tablet RxNorm: 631812 1 Tablet(s) PO BID 08/14/2018 11/06/2019 Active see new directions and quantity cyclobenzaprine 5 mg tablet RxNorm: 544194 Tablet(s) TABLET(S) 1/2 TABLET(S) PO Q8 NEEDED MUSCLE SPASMS 08/14/2018 10/30/2018 Inactive Nitro-Bid 2 % transdermal ointment RxNorm: 001849 1 dime size amount TD BID to fingers and toes 08/14/2018 09/12/2018 Inactive cyclobenzaprine 5 mg tablet RxNorm: 426383 TABLET(S) 1/2 TABLET(S) PO Q8 NEEDED MUSCLE SPASMS 08/06/2018 08/13/2018 Inactive amlodipine 5 mg tablet RxNorm: 401278 1/2 Tablet(s) PO daily may take an extra 1/2 pill at the end of the day if blood pressure is elevated over 140 07/26/2018 10/14/2018 Inactive cefdinir 300 mg capsule RxNorm: 399260 1 Capsule(s) PO BID 06/20/2018 06/26/2018 Inactive cefdinir 300 mg capsule RxNorm: 635365 1 Capsule(s) PO BID 06/20/2018 06/19/2018 Inactive metoprolol succinate ER 50 mg tablet,extended release 24 hr RxNorm: 314343 1.5 Tablet(s) daily 06/15/2018 03/11/2019 Active sucralfate 100 mg/mL oral suspension RxNorm: 057644 2 Teaspoon(s) PO TID as needed with reflux symptoms 06/04/2018 No Stop Date Active Vesicare 10 mg tablet RxNorm: 294125 1 TABLET(S) PO EVERY OTHER DAY 05/14/2018 01/08/2019 Active levothyroxine 50 mcg tablet RxNorm: 913376 1 TABLET(S) PO DAILY 04/30/2018 09/18/2018 Inactive Patient requests 90 days supply spironolactone 25 mg tablet RxNorm: 359202 1 Tablet(s) PO daily 03/14/2018 08/13/2018 Inactive levothyroxine 50 mcg tablet RxNorm: 197335 1 Tablet(s) PO daily 02/01/2018 04/29/2018 Inactive Eliquis 2.5 mg tablet RxNorm: 6468263 1 Tablet(s) PO BID 01/31/2018 02/20/2018 Inactive levothyroxine 50 mcg tablet RxNorm: 911912 1 Tablet(s) PO daily 01/31/2018 01/31/2018 Inactive Eliquis 2.5 mg tablet RxNorm: 8696998 TAKE 1 TABLET BY MOUTH TWICE DAILY 01/23/2018 07/21/2018 Inactive metoprolol succinate ER 50 mg tablet,extended release 24 hr RxNorm: 204485 1 TABLET(S) PO DAILY 01/23/2018 01/30/2018 Inactive metoprolol succinate ER 50 mg tablet,extended release 24 hr RxNorm: 717958 1.5 Tablet(s) daily 01/22/2018 06/14/2018 Inactive lisinopril 20 mg tablet RxNorm: 170110 1/2 Tablet(s) daily 01/19/2018 01/21/2018 Inactive Patient requests 90 days supply Singulair 10 mg tablet RxNorm: 456291 TAKE 1 TABLET BY MOUTH AT BEDTIME 01/18/2018 04/17/2018 Inactive Patient requests 90 days supply Singulair 10 mg tablet RxNorm: 551951 Tablet(s) PO 01/17/2018 01/17/2018 Inactive digoxin 125 mcg tablet RxNorm: 223277 1 TABLET(S) PO DAILY 01/03/2018 12/05/2018 Inactive Symbicort 160 mcg-4.5 mcg/actuation HFA aerosol inhaler RxNorm: 0332746 2 Puff(s) INH BID 12/14/2017 04/12/2018 Inactive please dispense an aerochamber for patient as well as her symbicort cyclobenzaprine 5 mg tablet RxNorm: 029797 Tablet(s) 1/2 TABLET(S) PO Q8 NEEDED MUSCLE SPASMS 12/14/2017 08/05/2018 Inactive pantoprazole 40 mg tablet,delayed release RxNorm: 202342 1 Tablet(s) PO daily 12/14/2017 11/28/2018 Inactive ProAir RespiClick 90 mcg/actuation breath activated RxNorm: 4528114 1-2 INH QID as needed shortness of breath 12/14/2017 07/11/2018 Inactive cyclobenzaprine 5 mg tablet RxNorm: 043836 1/2 TABLET(S) PO Q8 NEEDED MUSCLE SPASMS 12/08/2017 12/13/2017 Inactive betamethasone dipropionate 0.05 % topical ointment RxNorm: 438185 1 Application TOP TID use topically on the rectal tissue three times daily x 1 week then as needed 11/13/2017 No Stop Date Active Premarin 0.625 mg/gram vaginal cream RxNorm: 854339 1/2 GRAM(S) VAG TIW 11/13/2017 10/30/2018 Inactive cyclobenzaprine 5 mg tablet RxNorm: 531553 1/2 TABLET(S) PO Q8 NEEDED MUSCLE SPASMS 10/17/2017 12/07/2017 Inactive Vesicare 10 mg tablet RxNorm: 309913 1 Tablet(s) PO every other day 10/17/2017 04/14/2018 Inactive lisinopril 20 mg tablet RxNorm: 248786 1 TABLET(S) PO DAILY 10/02/2017 01/18/2018 Inactive Patient requests 90 days supply levothyroxine 75 mcg tablet RxNorm: 177602 1 TABLET(S) PO DAILY 09/25/2017 01/30/2018 Inactive spironolactone 25 mg tablet RxNorm: 217999 1 TABLET(S) PO DAILY 08/16/2017 03/13/2018 Inactive cyclobenzaprine 5 mg tablet RxNorm: 769013 1/2 TABLET(S) PO Q8 NEEDED MUSCLE SPASMS 08/16/2017 10/16/2017 Inactive Eliquis 2.5 mg tablet RxNorm: 9455410 TAKE 1 TABLET BY MOUTH TWICE DAILY 07/26/2017 01/21/2018 Inactive cyclobenzaprine 5 mg tablet RxNorm: 925320 1/2 Tablet(s) PO Q8 as needed muscle spasms 06/19/2017 08/15/2017 Inactive lisinopril 20 mg tablet RxNorm: 062446 1 TABLET(S) PO DAILY 06/12/2017 10/01/2017 Inactive metoprolol succinate ER 50 mg tablet,extended release 24 hr RxNorm: 483589 1 TABLET(S) PO DAILY 04/07/2017 01/01/2018 Inactive spironolactone 25 mg tablet RxNorm: 088267 1 Tablet(s) PO daily 03/27/2017 03/13/2018 Inactive acyclovir 800 mg tablet RxNorm: 747099 1 Tablet(s) PO TID 03/21/2017 03/30/2017 Inactive acyclovir 800 mg tablet RxNorm: 151584 1 Tablet(s) PO TID 03/21/2017 03/20/2017 Inactive levothyroxine 75 mcg tablet RxNorm: 175662 1 Tablet(s) PO daily 03/16/2017 09/11/2017 Inactive spironolactone 25 mg tablet RxNorm: 264138 1 TABLET(S) PO DAILY 02/09/2017 03/26/2017 Inactive lisinopril 20 mg tablet RxNorm: 836825 1 TABLET(S) PO DAILY 01/02/2017 05/31/2017 Inactive Zithromax Z-Claudio 250 mg tablet RxNorm: 848146 1 Tablet(s) PO UD 11/29/2016 12/03/2016 Inactive ZPACK Keflex 500 mg capsule RxNorm: 153978 1 Capsule(s) PO TID 11/23/2016 12/02/2016 Inactive guaifenesin 400 mg tablet RxNorm: 200353 1 Tablet(s) PO Q6 as needed 11/23/2016 11/27/2016 Inactive omeprazole 40 mg capsule,delayed release RxNorm: 768806 1 Capsule(s) PO QPM 11/02/2016 12/13/2017 Inactive digoxin 125 mcg tablet RxNorm: 001683 1 TABLET(S) PO DAILY 10/27/2016 07/23/2017 Inactive cyclobenzaprine 5 mg tablet RxNorm: 370682 1/2 Tablet(s) PO Q8 PRN 10/25/2016 06/18/2017 Inactive prn muscle spasms Augmentin 500 mg-125 mg tablet RxNorm: 323280 1 Tablet(s) PO BID 10/24/2016 11/02/2016 Inactive Lasix 20 mg tablet RxNorm: 694042 Tablet(s) PRN one to two times a week if needed 07/27/2016 No Stop Date Active Patient requests 90 days supply spironolactone 25 mg tablet RxNorm: 538147 1 Tablet(s) PO daily 07/27/2016 02/08/2017 Inactive Diflucan 150 mg tablet RxNorm: 293283 1 Tablet(s) PO daily 07/27/2016 08/02/2016 Inactive lisinopril 20 mg tablet RxNorm: 157137 1 Tablet(s) PO daily 07/12/2016 01/01/2017 Inactive Lasix 20 mg tablet RxNorm: 446177 1 TABLET(S) PO EVERY OTHER DAY EVERY OTHER DAY 06/10/2016 07/26/2016 Inactive Patient requests 90 days supply potassium chloride ER 10 mEq capsule,extended release RxNorm: 365242 1 CAPSULE(S) PO EVERY OTHER DAY 06/10/2016 07/26/2016 Inactive Patient requests 90 days supply potassium chloride ER 10 mEq capsule,extended release RxNorm: 809443 1 Capsule(s) PO every other day 06/09/2016 06/09/2016 Inactive Lasix 20 mg tablet RxNorm: 084493 1 Tablet(s) PO every other day every other day 06/09/2016 06/09/2016 Inactive levothyroxine 88 mcg tablet RxNorm: 216772 1 Tablet(s) PO daily 05/11/2016 11/06/2016 Inactive Premarin 0.625 mg/gram vaginal cream RxNorm: 949052 1/2 Gram(s) VAG TIW 03/24/2016 03/18/2017 Inactive metoprolol succinate ER 50 mg tablet,extended release 24 hr RxNorm: 818081 1 Tablet(s) PO daily 03/24/2016 03/18/2017 Inactive pantoprazole 40 mg tablet,delayed release RxNorm: 162230 1 Tablet(s) PO daily 02/08/2016 11/01/2016 Inactive betamethasone dipropionate 0.05 % topical ointment RxNorm: 315772 1 Application TOP TID use topically on the rectal tissue three times daily x 1 week then as needed 02/02/2016 11/12/2017 Inactive pantoprazole 40 mg tablet,delayed release RxNorm: 246945 1 Tablet(s) PO daily 2016 02/07/2016 Inactive alprazolam 0.25 mg tablet RxNorm: 654342 1 Tablet(s) PO Q6 as needed 12/04/2015 No Stop Date Active Vesicare 10 mg tablet RxNorm: 653643 1 Tablet(s) PO every other day 11/03/2015 10/16/2017 Inactive alprazolam 0.25 mg tablet RxNorm: 041327 1 Tablet(s) PO Q6 as needed 11/03/2015 12/03/2015 Inactive Premarin 0.625 mg/gram vaginal cream RxNorm: 031392 1/2 Gram(s) VAG TIW 11/03/2015 03/23/2016 Inactive levothyroxine 88 mcg tablet RxNorm: 974442 1 Tablet(s) PO daily 11/03/2015 05/10/2016 Inactive Diflucan 150 mg tablet RxNorm: 132146 1 Tablet(s) PO daily 10/19/2015 10/25/2015 Inactive cetirizine 10 mg chewable tablet RxNorm: 8257992 1 Tablet(s) PO daily 10/13/2015 11/11/2015 Inactive cetirizine 10 mg capsule RxNorm: 5998403 1 Capsule(s) PO daily 10/13/2015 11/11/2015 Inactive Vesicare 10 mg tablet RxNorm: 868017 1/2 TABLET(S) PO BID 09/21/2015 11/02/2015 Inactive betamethasone dipropionate 0.05 % topical ointment RxNorm: 013134 1 Application TOP TID use topically on the rectal tissue three times daily x 1 week then as needed 09/15/2015 02/01/2016 Inactive lisinopril 20 mg tablet RxNorm: 580717 1 Tablet(s) PO daily 09/01/2015 07/11/2016 Inactive digoxin 125 mcg tablet RxNorm: 198786 1 Tablet(s) PO daily 09/01/2015 08/25/2016 Inactive Augmentin 500 mg-125 mg tablet RxNorm: 535740 1 Tablet(s) PO TID 05/26/2015 06/04/2015 Inactive Pyridium 200 mg tablet RxNorm: 3121130 1 Tablet(s) PO TID 05/26/2015 05/27/2015 Inactive levothyroxine 88 mcg tablet RxNorm: 678901 1 Tablet(s) PO daily except 1/2 pill on monday and 05/07/2015 11/02/2015 Inactive digoxin 125 mcg tablet RxNorm: 616196 1 Tablet(s) PO daily 05/07/2015 08/31/2015 Inactive lisinopril 20 mg tablet RxNorm: 472531 1 TABLET(S) PO BID 04/13/2015 09/01/2015 Inactive Coumadin 1 mg tablet RxNorm: 004936 1 TABLET(S) PO DAILY 03/31/2015 08/31/2015 Inactive Coumadin 2 mg tablet RxNorm: 919797 4MG IN AM AND 1MG AT NIGHT TABLET(S) PO DAILY DIRECTED. 03/31/2015 08/31/2015 Inactive levothyroxine 88 mcg tablet RxNorm: 625964 1 Tablet(s) PO daily 03/23/2015 05/06/2015 Inactive alprazolam 0.25 mg tablet RxNorm: 678595 Tablet(s) PO 03/23/2015 04/06/2015 Inactive levothyroxine 88 mcg tablet RxNorm: 301680 1 Tablet(s) PO daily 01/28/2015 03/22/2015 Inactive levothyroxine 88 mcg tablet RxNorm: 830340 1 Tablet(s) PO daily 01/28/2015 01/27/2015 Inactive diltiazem ER 120 mg capsule,extended release RxNorm: 293913 1 Capsule(s) PO BID patient would like 4 months at a time 01/06/2015 09/28/2015 Inactive digoxin 125 mcg tablet RxNorm: 038392 Tablet(s) 1 TABLET(S) PO DAILY 12/24/2014 12/23/2014 Inactive pt will be paying [employer]oma[employer] (On $4 list)Patient requests 90 days supply digoxin 125 mcg tablet RxNorm: 391884 Tablet(s) 1 TABLET(S) PO DAILY M W F Sat and 2 tabs on T TH 12/24/2014 05/06/2015 Inactive pt will be paying [employer]oma[employer] (On $4 list)Patient requests 90 days supply dicyclomine 20 mg tablet RxNorm: 990244 1 Tablet(s) PO daily 11/17/2014 08/31/2015 Inactive one ac dinner and up to tid prn levothyroxine 88 mcg tablet RxNorm: 992180 1 Tablet(s) PO daily 11/03/2014 01/27/2015 Inactive Premarin 0.625 mg/gram vaginal cream RxNorm: 801697 1 APPLICATION VAG 1 APPLICATOR PER VAGINA 3 TIMES PER WEEK 11/03/2014 07/30/2015 Inactive digoxin 125 mcg tablet RxNorm: 242184 1 TABLET(S) PO DAILY 09/29/2014 12/23/2014 Inactive pt will be paying [employer]oma[employer] (On $4 list)Patient requests 90 days supply digoxin 125 mcg tablet RxNorm: 001541 1 TABLET(S) PO DAILY 07/11/2014 04/06/2015 Inactive Vesicare 10 mg tablet RxNorm: 479333 1/2 Tablet(s) PO BID 05/20/2014 05/14/2015 Inactive Levaquin 500 mg tablet RxNorm: 188418 1 Tablet(s) PO daily 05/06/2014 05/08/2014 Inactive take probiotic BID while on ABT Levaquin 500 mg tablet RxNorm: 520228 1 Tablet(s) PO daily 05/02/2014 05/05/2014 Inactive take probiotic BID while on ABT diltiazem ER 120 mg capsule,extended release RxNorm: 447815 1 Capsule(s) PO BID patient would like 4 months at a time 04/29/2014 2015 Inactive Vesicare 10 mg tablet RxNorm: 145374 1/2 Tablet(s) PO BID 04/29/2014 05/19/2014 Inactive lisinopril 20 mg tablet RxNorm: 196414 1 Tablet(s) PO BID 03/20/2014 03/14/2015 Inactive diltiazem 90 mg tablet RxNorm: 864398 1/2 TABLET(S) PO QPM 03/04/2014 04/28/2014 Inactive also 180 q am diltiazem ER 120 mg capsule,extended release RxNorm: 587363 1 Capsule(s) PO daily patient would like 4 months at a time 01/29/2014 04/28/2014 Inactive Vesicare 10 mg tablet RxNorm: 907322 1 Tablet(s) PO QHS 01/14/2014 04/28/2014 Inactive Coumadin 2 mg tablet RxNorm: 969498 4mg in AM and 1mg at night Tablet(s) PO daily as directed. 12/25/2013 03/30/2015 Inactive Metanx 3 mg-35 mg-2 mg tablet RxNorm: 1 Tablet(s) PO daily 12/25/2013 11/02/2015 Inactive digoxin 125 mcg tablet RxNorm: 147782 1 Tablet(s) PO daily 12/25/2013 09/28/2014 Inactive pt will be paying [employer]oma[employer] (On $4 list) Coumadin 2 mg tablet RxNorm: 465307 7.5 wed 5mg other Tablet(s) PO as directed. 12/03/2013 12/24/2013 Inactive omeprazole 20 mg tablet,delayed release RxNorm: 998042 1 Tablet(s) PO BID 11/27/2013 04/28/2014 Inactive Coumadin 2 mg tablet RxNorm: 246961 5 mg daily Tablet(s) PO as directed. 11/26/2013 12/02/2013 Inactive 5 mg daily Xanax 0.25 mg tablet RxNorm: 197311 1 Tablet(s) PO Q6 PRN 11/11/2013 12/25/2013 Inactive alprazolam 0.25 mg tablet RxNorm: 545320 tablet oral 11/11/2013 03/22/2015 Inactive sucralfate 1 gram tablet RxNorm: 776208 1 Tablet(s) PO AC & HS 11/04/2013 11/03/2013 Inactive sucralfate 1 gram tablet RxNorm: 819014 1 Tablet(s) PO AC & HS 11/04/2013 01/02/2014 Inactive Synthroid 100 mcg tablet RxNorm: 935144 1 Tablet(s) PO daily 10/31/2013 10/25/2014 Inactive Synthroid 100 mcg tablet RxNorm: 845749 1 Tablet(s) PO daily 09/30/2013 10/29/2013 Inactive Vesicare 10 mg tablet RxNorm: 502618 1 Tablet(s) PO QHS 09/30/2013 01/13/2014 Inactive Lotemax 0.5 % eye ointment RxNorm: 0330634 ointment opht 09/06/2013 12/10/2013 Inactive levothyroxine 100 mcg tablet RxNorm: 746881 tablet oral 09/05/2013 11/02/2014 Inactive Synthroid 100 mcg tablet RxNorm: 384147 1 Tablet(s) PO daily 09/05/2013 09/29/2013 Inactive Prolia 60 mg/mL Sub-Q Syringe RxNorm: 697286 1 Milliliter(s) SQ 06/25/2013 11/02/2015 Inactive dicyclomine 20 mg tablet RxNorm: 189501 1 Tablet(s) PO daily 06/24/2013 06/18/2014 Inactive one ac dinner and up to tid prn omeprazole 20 mg tablet,delayed release RxNorm: 369697 1 Tablet(s) PO BID 06/24/2013 11/26/2013 Inactive Cipro 500 mg tablet RxNorm: 483825 1 Tablet(s) PO BID 06/20/2013 06/26/2013 Inactive diltiazem ER 120 mg capsule,extended release RxNorm: 058033 1 Capsule(s) PO daily patient would like 4 months at a time 06/03/2013 01/28/2014 Inactive Coumadin 2 mg tablet RxNorm: 155181 as directed Tablet(s) PO as directed. 05/29/2013 11/25/2013 Inactive 5 mg daily Synthroid 88 mcg tablet RxNorm: 737690 1 Tablet(s) PO daily 04/24/2013 04/23/2013 Inactive Synthroid 88 mcg tablet RxNorm: 753724 1 Tablet(s) PO daily 04/24/2013 07/28/2013 Inactive Premarin 0.625 mg/gram vaginal cream RxNorm: 937068 1 Application VAG 1 applicator per vagina 3 times per week 04/23/2013 04/17/2014 Inactive Influenza Virus Vaccine 0.5 mL RxNorm: IM 04/23/2013 04/23/2013 Inactive digoxin 125 mcg tablet RxNorm: 346780 1 Tablet(s) PO daily 02/20/2013 04/20/2013 Inactive pt will be paying [employer]oma[employer] (On $4 list) Digox 125 mcg tablet RxNorm: 3766762 tablet oral 02/13/2013 03/20/2014 Inactive digoxin 125 mcg tablet RxNorm: 833423 1 Tablet(s) PO daily 02/13/2013 02/19/2013 Inactive diltiazem 90 mg tablet RxNorm: 729928 1/2 Tablet(s) PO QPM 02/13/2013 02/07/2014 Inactive also 180 q am Levoxyl 75 mcg tablet RxNorm: 432716 1 Tablet(s) PO 01/16/2013 04/23/2013 Inactive Coumadin 2 mg tablet RxNorm: 875829 6mg daily except 3mg on wed and fri Tablet(s) PO 01/15/2013 05/28/2013 Inactive 5 mg daily Coumadin 2 mg tablet RxNorm: 791910 6mg daily Tablet(s) PO 12/21/2012 01/14/2013 Inactive 5 mg daily silver sulfadiazine 1 % Topical Cream RxNorm: 496780 TOP apply to affected area with each dressing change 12/19/2012 12/25/2013 Inactive cephalexin 500 mg tablet RxNorm: 911817 1 Tablet(s) PO TID 12/11/2012 12/17/2012 Inactive digoxin 125 mcg tablet RxNorm: 698791 1 Tablet(s) PO daily 10/30/2012 02/12/2013 Inactive digoxin 125 mcg tablet RxNorm: 163552 2 tab tue thurs one other days Tablet(s) PO daily 10/23/2012 10/29/2012 Inactive lisinopril 10 mg tablet RxNorm: 209989 1 Tablet(s) PO daily 10/17/2012 08/14/2013 Inactive Cipro 500 mg tablet RxNorm: 974278 1 Tablet(s) PO BID 09/13/2012 09/19/2012 Inactive Coumadin 1 mg tablet RxNorm: 552608 1 Tablet(s) PO daily 09/03/2012 09/02/2012 Inactive Coumadin 1 mg tablet RxNorm: 490489 1 Tablet(s) PO daily 09/03/2012 12/21/2012 Inactive Coumadin 2 mg tablet RxNorm: 828413 Tablet(s) PO 07/25/2012 12/20/2012 Inactive 5 mg daily digoxin 125 mcg tablet RxNorm: 967368 1 Tablet(s) PO daily 06/28/2012 10/22/2012 Inactive Coumadin 2 mg tablet RxNorm: 991947 Tablet(s) PO 06/27/2012 07/24/2012 Inactive 5mg daily except 4mg on monday Coumadin 2 mg tablet RxNorm: 955815 Tablet(s) PO 06/19/2012 06/26/2012 Inactive 5mg e wed thur sat sun4mg mond(has 2mg and 1 mg tab) digoxin 125 mcg tablet RxNorm: 899956 1 Tablet(s) PO daily 05/29/2012 06/27/2012 Inactive Coumadin 2 mg tablet RxNorm: 034116 Tablet(s) PO 05/15/2012 06/18/2012 Inactive 5mg tue thur sat sun4mg mon frid(has 2mg and 1 mg tab) Coumadin 2 mg tablet RxNorm: 796930 Tablet(s) PO 04/25/2012 05/14/2012 Inactive 5mg tue thru sat4mg mon sun(has 2mg and 1 mg tab) Metanx 3 mg-35 mg-2 mg tablet RxNorm: 1 Tablet(s) PO BID 04/18/2012 12/24/2013 Inactive dicyclomine 20 mg tablet RxNorm: 765856 1 Tablet(s) PO 04/18/2012 06/23/2013 Inactive one ac dinner and up to tid prn digoxin 125 mcg tablet RxNorm: 256604 Tablet(s) PO daily except .25 on Tuesdays and 04/09/2012 05/28/2012 Inactive omeprazole 20 mg tablet,delayed release RxNorm: 972442 1 Tablet(s) PO BID 04/09/2012 04/03/2013 Inactive digoxin 125 mcg tablet RxNorm: 369819 1 Tablet(s) PO UD daily except none on Tuesdays and 03/13/2012 04/08/2012 Inactive Premarin 0.625 mg/gram Vaginal Cream RxNorm: 431944 1 Application VAG 1 applicator per vagina 3 times per week 02/20/2012 02/13/2013 Inactive omeprazole 20 mg tablet,delayed release RxNorm: 868430 1 Tablet(s) PO BID 02/13/2012 04/08/2012 Inactive Vesicare 10 mg tablet RxNorm: 346250 1 Tablet(s) PO QHS 02/13/2012 02/06/2013 Inactive Diflucan 150 mg tablet RxNorm: 342624 1 Tablet(s) PO daily 02/13/2012 02/19/2012 Inactive omeprazole 20 mg tablet,delayed release RxNorm: 432266 1 Tablet(s) PO BID 01/06/2012 02/12/2012 Inactive Calcium 600 + D(3) 600 mg (1,500)-200 unit Tab RxNorm: 300157 2 Tablet(s) PO BID 01/06/2012 08/31/2015 Inactive diltiazem 90 mg tablet RxNorm: 428658 1/2 Tablet(s) PO QPM 12/26/2011 02/12/2013 Inactive also 180 q am diltiazem ER 180 mg Cap RxNorm: 815787 1 Capsule(s) PO QAM 12/26/2011 04/08/2012 Inactive 45mg q hs Flagyl 500 mg Tab RxNorm: 952069 1 Tablet(s) PO BID 12/14/2011 12/20/2011 Inactive dicyclomine 10 mg Cap RxNorm: 705898 1 Capsule(s) PO AC & HS 12/01/2011 12/25/2011 Inactive Levaquin 500 mg Tab RxNorm: 423741 1 Tablet(s) PO daily 11/23/2011 11/29/2011 Inactive Rocephin 500 mg Solution for Injection RxNorm: 2972371 Inj 11/23/2011 11/23/2011 Inactive acyclovir 400 mg Tab RxNorm: 344466 1 Tablet(s) PO QID 11/10/2011 11/19/2011 Inactive acyclovir 400 mg Tab RxNorm: 515397 1 Tablet(s) PO QID 11/10/2011 11/09/2011 Inactive lisinopril 20 mg Tab RxNorm: 344520 1 Tablet(s) PO daily 10/03/2011 11/27/2011 Inactive lisinopril 20 mg Tab RxNorm: 107427 1 Tablet(s) PO daily 08/08/2011 10/02/2011 Inactive Reclast 5 mg/100 mL IV RxNorm: 141529 Milliliter(s) IV Yearly 06/08/2011 01/16/[address] Hansen manages Rocephin 500 mg Solution for Injection RxNorm: 2922467 1 Milliliter(s) Inj 03/04/2011 08/08/2011 Inactive Ceftin 500 mg Tab RxNorm: 150723 1 Tablet(s) PO BID 03/04/2011 08/08/2011 Inactive Vitamin D3 1,000 unit tablet RxNorm: 032460 2 Tablet(s) PO daily No Start Date Active Stool Softener 100 mg tablet RxNorm: 1185725 2 Tablet(s) PO QHS No Start Date Active Beano tablet RxNorm: 2-3 Tablet(s) PO as needed No Start Date Active Probiotic Pearls 15 mg (1 billion cell) capsule,delayed release RxNorm: 1 Capsule(s) PO daily No Start Date Active Lipitor 10 mg tablet RxNorm: 431047 1 Tablet(s) PO daily No Start Date Active Miralax 17 gram oral powder packet RxNorm: 588309 1/2 packet PO QHS No Start Date Active multivitamin Tab RxNorm: 1 Tablet(s) PO daily No Start Date Active Tylenol Extra Strength 500 mg tablet RxNorm: 824341 2 Tablet(s) PO as needed No Start Date Active Combigan 0.2 %-0.5 % eye drops RxNorm: 298789 1 Drop(s) OPH BID No Start Date Active 1 drop twice daily left eye Lexapro 5 mg tablet RxNorm: 190696 1 Tablet(s) PO daily No Start Date Active Tatiana Allergy 180 mg tablet RxNorm: 541282 1 Tablet(s) PO daily No Start Date Active Lotemax 0.5 % eye drops,suspension RxNorm: 830759 1 Drop(s) OPH right eye BID No Start Date Active Levoxyl 50 mcg tablet RxNorm: 916840 1 Tablet(s) PO daily No Start Date 01/15/2013 Inactive lisinopril-hydrochlorothiazide 20 mg-25 mg Tab RxNorm: 730778 1 Tablet(s) PO daily No Start Date 08/07/2011 Inactive Metanx 3 mg-35 mg-2 mg tablet RxNorm: 1 Tablet(s) PO daily No Start Date 04/17/2012 Inactive diltiazem CD 120 mg capsule,extended release 24 hr RxNorm: 389018 1 Capsule(s) PO daily No Start Date 09/28/2015 Inactive lisinopril 20 mg tablet RxNorm: 075769 Tablet(s) PO No Start Date Active Lumigan 0.01 % Eye Drops RxNorm: 1358132 1 Drop(s) OPH daily Left eye No Start Date 12/10/2013 Inactive prednisolone acetate 1 % Eye Drops, Susp RxNorm: 3612188 1 Drop(s) OPH BID 1 drop right eye am and hs No Start Date 11/02/2015 Inactive Eliquis 5 mg tablet RxNorm: 3315730 1 Tablet(s) PO BID No Start Date 06/08/2016 Inactive potassium gluconate (bulk) Misc RxNorm: Miscellaneous No Start Date 12/25/2011 Inactive Calcium 600 + D(3) 600 mg (1,500)-200 unit Tab RxNorm: 910979 3 Tablet(s) PO daily No Start Date 2012 Inactive Zyrtec 10 mg tablet RxNorm: 4103271 1 Tablet(s) PO daily No Start Date 08/02/2016 Inactive Synthroid 100 mcg tablet RxNorm: 829397 1 Tablet(s) PO daily No Start Date 09/04/2013 Inactive metoprolol succinate ER 50 mg tablet,extended release 24 hr RxNorm: 718970 1 Tablet(s) PO daily No Start Date 03/23/2016 Inactive Carafate 100 mg/mL oral suspension RxNorm: 835010 2 Teaspoon(s) PO as needed with reflux symptoms No Start Date 06/03/2018 Inactive Metanx 3 mg-35 mg-2 mg tablet RxNorm: 1 Tablet(s) PO daily 2pm No Start Date 11/02/2015 Inactive Lexapro 5 mg tablet RxNorm: 920928 1 Tablet(s) PO daily No Start Date 08/18/2015 Inactive Iron (dried) oral RxNorm: 02750 oral No Start Date 11/02/2015 Inactive timolol 0.5 % Eye Drops RxNorm: 360882 1 Drop(s) OPH daily left eye No Start Date 12/18/2013 Inactive multivitamin Cap RxNorm: 1 Capsule(s) PO daily No Start Date 12/25/2011 Inactive dicyclomine 10 mg Cap RxNorm: 289563 2 Capsule(s) PO daily No Start Date 11/30/2011 Inactive silver sulfadiazine 1 % Topical Cream RxNorm: 478484 TOP apply to affected area with each dressing change No Start Date 12/18/2012 Inactive magnesium oxide 400 mg Tab RxNorm: 680307 1 Tablet(s) PO daily No Start Date 11/02/2015 Inactive Pradaxa 75 mg Cap RxNorm: 3050772 1 Capsule(s) PO BID No Start Date 04/09/2012 Inactive magnesium oxide 400 mg Tab RxNorm: 760494 2 Tablet(s) PO daily magnesium plus zinc No Start Date 12/25/2011 Inactive biotin 1000 mg RxNorm: 1 PO daily No Start Date 12/25/2011 Inactive Synthroid 50 mcg Tab RxNorm: 358353 Tablet(s) PO No Start Date 12/25/2011 Inactive diltiazem ER 180 mg Cap RxNorm: 417642 1 Capsule(s) PO daily No Start Date 12/25/2011 Inactive 1 D 3 1000 iu Oral RxNorm: Oral No Start Date 12/25/2011 Inactive Coumadin 2 mg tablet RxNorm: 383887 Tablet(s) PO No Start Date 04/24/2012 Inactive 5mg tue [id number] mon sat sun(has 2mg and 1 mg tab) dicyclomine 20 mg tablet RxNorm: 347525 Tablet(s) PO No Start Date 04/17/2012 Inactive one ac dinner and up to tid prn lactobacillus acidophilus tablet RxNorm: 1 Tablet(s) PO daily No Start Date 11/03/2015 Inactive Eliquis 2.5 mg tablet RxNorm: 3635580 1 Tablet(s) PO BID No Start Date 07/25/2017 Inactive Levoxyl 75 mcg Tab RxNorm: 757790 1 Tablet(s) PO daily No Start Date 10/02/2011 Inactive digoxin 125 mcg tablet RxNorm: 620738 1 Tablet(s) PO daily No Start Date 03/12/2012 Inactive pantoprazole 40 mg tablet,delayed release RxNorm: 749323 1 Tablet(s) PO BID No Start Date 01/04/2016 Inactive cyclobenzaprine 5 mg tablet RxNorm: 778728 1/2 Tablet(s) PO Q8 PRN No Start Date 10/24/2016 Inactive diltiazem 90 mg Tab RxNorm: 596252 1/2 Tablet(s) PO QPM No Start Date 12/25/2011 Inactive Mirapex 1 mg Tab RxNorm: 212719 1 Tablet(s) PO QHS No Start Date 12/25/2011 Inactive Xanax 0.25 mg tablet RxNorm: 533196 1 Tablet(s) PO Q6 PRN No Start Date 11/10/2013 Inactive Premarin 0.625 mg/gram Vaginal Cream RxNorm: 430443 1 Application VAG 1 applicator per vagina 3 times per week No Start Date 02/19/2012 Inactive Synthroid 75 mcg Tab RxNorm: 430559 1 Tablet(s) PO daily No Start Date 04/17/2012 Inactive lisinopril 40 mg Tab RxNorm: 948844 1 Tablet(s) PO daily No Start Date 12/25/2011 Inactive Glucosamine Chondroitin Complex Advanced [id number]-1.65mg Tab RxNorm: 2 Tablet(s) PO daily No Start Date 08/08/2011 Inactive famotidine 20 mg tablet RxNorm: 724826 1 Tablet(s) PO QAM No Start Date 11/02/2015 Inactive cranberry extract 250 mg Tab RxNorm: 697635 2 Tablet(s) PO daily No Start Date 08/08/2011 Inactive Vitamin D3 1,000 unit capsule RxNorm: 239139 1 Capsule(s) PO daily No Start Date 08/31/2015 Inactive aspirin 81 mg Tab, Delayed Release RxNorm: 479221 1 Tablet(s) PO daily No Start Date 08/31/2015 Inactive diltiazem ER 120 mg capsule,extended release RxNorm: 884674 1 Capsule(s) PO daily patient would like 4 months at a time No Start Date 06/02/2013 Inactive omeprazole 20 mg Tab, Delayed Release RxNorm: 084066 2 Tablet(s) PO QHS No Start Date 2012 Inactive lisinopril 10 mg tablet RxNorm: 636528 1/2 Tablet(s) PO daily No Start Date 10/16/2012 Inactive Pred Forte 1 % Eye Drops RxNorm: 463251 1 Drop(s) OPH daily right eye No Start Date 12/25/2013 Inactive calcium carbonate 400 mg Chewable Tab RxNorm: 537082 1 Tablet(s) PO daily No Start Date 08/08/2011 Inactive Vesicare 10 mg tablet RxNorm: 215330 1 Tablet(s) PO QHS No Start Date 02/12/2012 Inactive Symbicort 160 mcg-4.5 mcg/actuation HFA aerosol inhaler RxNorm: 0335129 2 Puff(s) INH BID No Start Date 12/13/2017 Inactive potassium 99 mg tablet RxNorm: 1 Tablet(s) PO QPM No Start Date 12/25/2013 Inactive timolol 0.25 % Eye Drops RxNorm: 871667 1 Drop(s) OPH daily Left eye No Start Date 04/17/2012 Inactive diltiazem ER 90 mg capsule,extended release 12 hr RxNorm: 268089 1/2 Capsule(s) PO QPM No Start Date 04/28/2014 Inactive cyclobenzaprine 5 mg Tab RxNorm: 574397 1/2-1 Tablet(s) PO Q8 PRN No Start Date 12/25/2011 Inactive 1/2 - 1 tab q 8hrs prn muscle spasms Medication Administered Medication Codes Instructions Start Date Status Influenza Virus Vaccine 0.5 mL RxNorm: 04/23/2013 No longer Active Rocephin 500 mg Solution for Injection RxNorm: 9625790 11/23/2011 No longer Active Immunizations Vaccine Codes [...] 04/18/2012 completed Assessments Condition Codes Effective Dates Major depressive disorder, recurrent, 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 ICD-9: 296.31 12/10/2018 Muscle weakness (generalized) ICD-10: M62.81 ICD-9: 728.87 12/10/2018 Hypo-osmolality and hyponatremia ICD-10: E87.1 ICD-9: 276.1 12/10/2018 Paroxysmal atrial fibrillation ICD-10: I48.0 ICD-9: 427.31 12/10/2018 Cough ICD-10: R05 ICD-9: 786.2 12/06/2018 [...] hypertension ICD-10: I10 ICD-9: 401.9 01/31/2018 Other supervisor intermediates (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) drug therapy ICD-10: Z79.899 ICD-9: V58.83 [...] hemorrhoids ICD-10: K64.0 ICD-9: 455.6 03/24/2016 Other supervisor intermediates (current) drug therapy ICD-10: Z79.899 ICD-9: V58.69 [...] Reason For Visit Effective Dates Notes cough 12/10/2018 sore throat 12/06/2018 cough 11/30/2018 [...] Ord9 DIGOXIN 0.5 NG/ML 12/06/2018 Comp Metabolic Xob031 NA 124 mEq/L 12/06/2018 Comp Metabolic Wju606 K 4.7 mEq/L 12/06/2018 Comp Metabolic Hlp507 CL 92 mEq/L 12/06/2018 Comp Metabolic Gqe949 CO2 21.0 mEq/L 12/06/2018 Comp Metabolic Ilj666 ANION GAP 16 12/06/2018 Comp Metabolic Lsk934 GLUCOSE 116 mg/dL 12/06/2018 Comp Metabolic Fqd477 Creat 0.9 mg/dL 12/06/2018 Comp Metabolic Rdm288 eGFR 62 ml/min/1.73m2 12/06/2018 Comp Metabolic Qwi301 BUN 24 mg/dL 12/06/2018 Comp Metabolic Pda507 B/C Ratio 26.1 Ratio 12/06/2018 Comp Metabolic Zaj931 CALCIUM 8.5 mg/dL 12/06/2018 Comp Metabolic Xgu019 ALK PHOS 53 U/L 12/06/2018 Comp Metabolic Xhg489 AST(SGOT) 30 U/L 12/06/2018 Comp Metabolic Zba619 ALT(SGPT) 35 U/L 12/06/2018 Comp Metabolic Aea388 BILI T 0.7 mg/dL 12/06/2018 Comp Metabolic Dmd494 ALBUMIN 3.2 g/dL 12/06/2018 Comp Metabolic Lrc724 TPRO 6.1 g/dL 12/06/2018 Comp Metabolic Unf070 GLOB 2.9 g/dL 12/06/2018 Comp Metabolic Kle495 A/G Ratio 1.1 Ratio 12/06/2018 Comp Metabolic Tgg130 Osmo 255 mOsmo 12/06/2018 Cbc With Differential [...] 31.1 pg 12/06/2018 Cbc With Differential Ord2 [place]% 9.1 % 12/06/2018 Cbc With Differential Ord2 [...] 0.51 K/ul 12/06/2018 Cbc With Differential Ord2 [place] ABS# 0.9 K/ul 12/06/2018 Cbc With Differential Ord2 Eos ABS# 0.4 K/ul 12/06/2018 Cbc With Differential Ord2 Baso ABS# 0.0 K/ul 12/06/2018 C RAP A SC [id number] Strep A Negative 11/30/2018 Electrolytes Ord62 NA 132 mEq/L 09/25/2018 Electrolytes Ord62 K 4.1 mEq/L 09/25/2018 Electrolytes Ord62 CL 98 mEq/L 09/25/2018 Electrolytes Ord62 CO2 26.0 mEq/L 09/25/2018 Electrolytes Ord62 ANION GAP 12 09/25/2018 Comp Metabolic Xye503 NA 130 mEq/L 09/12/2018 Comp Metabolic Wry342 K 4.2 mEq/L 09/12/2018 Comp Metabolic Cvr065 CL 98 mEq/L 09/12/2018 Comp Metabolic Kco999 CO2 23.0 mEq/L 09/12/2018 Comp Metabolic Uhd114 ANION GAP 13 09/12/2018 Comp Metabolic Bap038 GLUCOSE 129 mg/dL 09/12/2018 Comp Metabolic Dcg672 Creat 1.0 mg/dL 09/12/2018 Comp Metabolic Vmo389 eGFR 58 ml/min/1.73m2 09/12/2018 Comp Metabolic Lgm991 BUN 28 mg/dL 09/12/2018 Comp Metabolic Ekr605 B/C Ratio 28.9 Ratio 09/12/2018 Comp Metabolic Xya268 CALCIUM 9.1 mg/dL 09/12/2018 Comp Metabolic Vgx343 ALK PHOS 59 U/L 09/12/2018 Comp Metabolic Ejf862 AST(SGOT) 21 U/L 09/12/2018 Comp Metabolic Owk228 ALT(SGPT) 19 U/L 09/12/2018 Comp Metabolic Vti419 BILI T 0.8 mg/dL 09/12/2018 Comp Metabolic Jol398 ALBUMIN 3.9 g/dL 09/12/2018 Comp Metabolic Tlm624 TPRO 6.5 g/dL 09/12/2018 Comp Metabolic Xyp512 GLOB 2.6 g/dL 09/12/2018 Comp Metabolic Lfp599 A/G Ratio 1.5 Ratio 09/12/2018 Comp Metabolic Cbb338 Osmo 268 mOsmo 09/12/2018 Tsh Ord6 TSH (3rd IS) 12.84 uIU/mL 09/12/2018 Influenza A+B Ufg750 Influ A+B Negative 09/12/2018 Cbc With Differential [...] 12.3 % 09/12/2018 Cbc With Differential Ord2 [place]% 12.0 % 09/12/2018 Cbc With Differential Ord2 [...] 0.85 K/ul 09/12/2018 Cbc With Differential Ord2 [place] ABS# 0.8 K/ul 09/12/2018 Cbc With Differential Ord2 Eos ABS# 0.1 K/ul 09/12/2018 Cbc With Differential Ord2 Baso ABS# 0.0 K/ul 09/12/2018 Free T4 Lmy085 FREE T4 1.10 ng/dL 09/12/2018 Free T4 Cnf671 FREE T4 1.19 ng/dL 05/08/2018 Digoxin Ord9 DIGOXIN 0.6 NG/ML 05/08/2018 Tsh Ord6 TSH (3rd IS) 10.58 uIU/mL 05/08/2018 Tsh Ord6 TSH (3rd IS) 1.07 uIU/mL 01/31/2018 Free T4 Skv737 FREE T4 1.63 ng/dL 01/31/2018 Digoxin Ord9 DIGOXIN 0.8 NG/ML 01/31/2018 C RAP A SC [id number] Strep A Negative 11/21/2016 Thyroid Antibodies 374258 THYROGLOBULIN ANTIBODY . 11/04/2016 Thyroid Antibodies 508927 THYROGLOBULIN ANTIBODY 919 IU/mL 11/04/2016 Thyroid Antibodies 420599 THYROID PEROXIDASE (TPO) AB . 11/04/2016 Thyroid Antibodies 653091 THYROID PEROXIDASE (TPO) AB 10 IU/mL 11/04/2016 Total T3 Ord42 TT3 0.64 ng/ml 11/03/2016 Free T4 Rys633 FREE T4 1.39 ng/dL 11/02/2016 Tsh Ord6 [...] Differential Ord2 RDW 13.8 % 05/26/2015 Pt Zlc2996 PT 25.0 seconds 05/26/2015 Pt Yyu1125 INR 2.4 05/26/2015 Pt Pnh2493 Low Intensity - 1.5-2.0 05/26/2015 Pt Hup9990 Mod intensity - 2.0-3.0 05/26/2015 Pt Uin8948 Hi intensity - 3.0-4.0 05/26/2015 Uric Acid [...] Digoxin Ord9 DIGOXIN 0.6 NG/ML 05/06/2015 Pt Rxh8130 PT 23.3 seconds 05/06/2015 Pt Pjy5676 INR 2.1 05/06/2015 Pt Gus9385 Low Intensity - 1.5-2.0 05/06/2015 Pt Rjp1786 Mod intensity - 2.0-3.0 05/06/2015 Pt Pcs8599 Hi intensity - 3.0-4.0 05/06/2015 Free T4 Exb027 FREE T4 1.65 ng/dL 05/06/2015 Comp Metabolic Idj861 NA 132 mEq/L 05/06/2015 Comp Metabolic Jss036 K 4.1 mEq/L 05/06/2015 Comp Metabolic Nbo790 CL 98 mEq/L 05/06/2015 Comp Metabolic Vrm844 CO2 27.0 mEq/L 05/06/2015 Comp Metabolic Twn993 ANION GAP 11 05/06/2015 Comp Metabolic Vkq230 GLUCOSE 71 mg/dL 05/06/2015 Comp Metabolic Jrl920 Creat 0.7 mg/dL 05/06/2015 Comp Metabolic Lvl058 eGFR 82 ml/min/1.73m2 05/06/2015 Comp Metabolic Wao428 BUN 16 mg/dL 05/06/2015 Comp Metabolic Ozt522 B/C Ratio 22.2 Ratio 05/06/2015 Comp Metabolic Ogr184 CALCIUM 9.4 mg/dL 05/06/2015 Comp Metabolic Fkc434 ALK PHOS 60 U/L 05/06/2015 Comp Metabolic Wxk302 AST(SGOT) 22 U/L 05/06/2015 Comp Metabolic Qlw279 ALT(SGPT) 24 U/L 05/06/2015 Comp Metabolic Ydt883 BILI T 0.8 mg/dL 05/06/2015 Comp Metabolic Znm029 ALBUMIN 4.3 g/dL 05/06/2015 Comp Metabolic Crm928 TPRO 7.6 g/dL 05/06/2015 Comp Metabolic Cml681 GLOB 3.3 g/dL 05/06/2015 Comp Metabolic Jhi618 A/G Ratio 1.3 Ratio 05/06/2015 Comp Metabolic Pnl586 Osmo 264 mOsmo 05/06/2015 DIGOXIN 7769738 DIGOXIN 1.1 NG/ML 05/15/2013 PT/MC 3547933 PRO TIME 21.7 SEC 05/15/2013 PT/MC 5829929 INR MCMC 2.0 05/15/2013 CHEM 14 6877128 AST 24 U/L 04/23/2013 CHEM 14 0226213 ALT 31 IU/L 04/23/2013 CHEM 14 7887221 BUN 13 MG/DL 04/23/2013 CHEM 14 7294684 ALBUMIN 4.1 GM/DL 04/23/2013 CHEM 14 5383734 CHLORIDE 103 MMOL/L 04/23/2013 CHEM 14 9441851 BILI TOT 0.5 MG/DL 04/23/2013 CHEM 14 1480529 ALK PHOS 44 U/L 04/23/2013 CHEM 14 2782733 SODIUM 137 MMOL/L 04/23/2013 CHEM 14 7785106 CREATININE 0.61 MG/DL 04/23/2013 CHEM 14 3501722 CALCIUM 9.5 MG/DL 04/23/2013 CHEM 14 9212700 POTASSIUM 4.0 MMOL/L 04/23/2013 CHEM 14 2582888 PROT TOT 6.6 GM/DL 04/23/2013 CHEM 14 8175623 GLUCOSE 99 MG/DL 04/23/2013 CHEM 14 7349963 BICARB 27 MMOL/L 04/23/2013 CHEM 14 5058641 ANION GAP 7 MEQ/L 04/23/2013 GFR CALC 8712564 GFR AA >60 ML/MIN 04/23/2013 GFR CALC 9888415 GFR NON-AA >60 ML/MIN 04/23/2013 TSH 0765431 TSH 4.204 uIU/ML 04/23/2013 CBC 7630041 WBC 6.7 10e9/L 04/23/2013 CBC 0740442 RBC 4.19 10e12/L 04/23/2013 CBC 9548623 HGB 13.2 g/dL 04/23/2013 CBC 0280355 HCT DET 39.2 % 04/23/2013 CBC 2330326 MCV 93.6 fL 04/23/2013 CBC 5753899 MCH 31.5 pg 04/23/2013 CBC 6730941 MCHC 33.7 g/dL 04/23/2013 CBC 4614801 PLT 202 10e9/L 04/23/2013 CBC 3466585 MPV 11.4 fL 04/23/2013 CBC 6845381 YANIRA % 70.5 % 04/23/2013 CBC 5121909 LY % 19.6 % 04/23/2013 CBC 6226374 MON % 8.2 % 04/23/2013 CBC 9299222 EOS % 1.6 % 04/23/2013 CBC 4825454 BASO % 0.1 % 04/23/2013 CBC 7876927 RDW 13.7 % 04/23/2013 CBC 6311348 ABS YANIRA 4.72 10e9/L 04/23/2013 CBC 9986108 ABS LYMPH 1.31 10e9/L 04/23/2013 CBC 6471528 ABS MONO 0.55 10e9/L 04/23/2013 CBC 8885888 ABS EOS 0.11 10e9/L 04/23/2013 CBC 8988692 ABS BASO 0.01 10e9/L 04/23/2013 CBC 6022024 RDW-SD 45.7 fL 04/23/2013 PT/MC 7308676 PRO TIME 13.4 SEC 12/17/2012 PT/MC 1274127 INR MCMC 1.0 12/17/2012 PT/MC 6823380 PRO TIME 16.6 SEC 12/14/2012 PT/MC 5235860 INR MCMC 1.4 12/14/2012 PT/MC 5499025 PRO TIME 27.2 SEC 12/11/2012 PT/MC 5743692 INR MCMC 2.6 12/11/2012 DIGOXIN 2950949 DIGOXIN 2.1 NG/ML 03/08/2012 GFR CALC 2321741 GFR AA >60 ML/MIN 03/08/2012 GFR CALC 4494224 GFR NON-AA >60 ML/MIN 03/08/2012 CHEM 14 20280112 AST 16 U/L 03/08/2012 CHEM 14 20280112 ALT 14 IU/L 03/08/2012 CHEM 14 20280112 BUN 10 MG/DL 03/08/2012 CHEM 14 20280112 ALBUMIN 4.2 GM/DL 03/08/2012 CHEM 14 20280112 CHLORIDE 100 MMOL/L 03/08/2012 CHEM 14 3737213 BILI TOT 0.5 MG/DL 03/08/2012 CHEM 14 7013973 ALK PHOS 59 U/L 03/08/2012 CHEM 14 0790976 SODIUM 136 MMOL/L 03/08/2012 CHEM 14 6358660 CREATININE 0.65 MG/DL 03/08/2012 CHEM 14 0475716 CALCIUM 9.4 MG/DL 03/08/2012 CHEM 14 0933702 POTASSIUM 3.9 MMOL/L 03/08/2012 CHEM 14 1042381 PROT TOT 6.7 GM/DL 03/08/2012 CHEM 14 3910086 GLUCOSE 90 MG/DL 03/08/2012 CHEM 14 4910630 BICARB 30 MMOL/L 03/08/2012 CHEM 14 6240426 ANION GAP 6 MEQ/L 03/08/2012 CHEM 14 8089756 AST 16 U/L 11/23/2011 CHEM 14 9382079 ALT 14 IU/L 11/23/2011 CHEM 14 1918220 BUN 11 MG/DL 11/23/2011 CHEM 14 3423388 ALBUMIN 4.1 GM/DL 11/23/2011 CHEM 14 4614989 CHLORIDE 100 MMOL/L 11/23/2011 CHEM 14 0749118 BILI TOT 0.5 MG/DL 11/23/2011 CHEM 14 6525121 ALK PHOS 50 U/L 11/23/2011 CHEM 14 0893236 SODIUM 135 MMOL/L 11/23/2011 CHEM 14 6869951 CREATININE 0.57 MG/DL 11/23/2011 CHEM 14 2410212 CALCIUM 9.1 MG/DL 11/23/2011 CHEM 14 3501146 POTASSIUM 4.5 MMOL/L 11/23/2011 CHEM 14 9268305 PROT TOT 6.5 GM/DL 11/23/2011 CHEM 14 1883778 GLUCOSE 89 MG/DL 11/23/2011 CHEM 14 4443566 BICARB 28 MMOL/L 11/23/2011 CHEM 14 9430892 ANION GAP 7 MEQ/L 11/23/2011 GFR CALC 9853977 GFR AA >60 ML/MIN 11/23/2011 GFR CALC 0906347 GFR NON-AA >60 ML/MIN 11/23/2011 CBC 9489464 WBC 5.1 10e9/L 11/23/2011 CBC 7827044 RBC 4.06 10e12/L 11/23/2011 CBC 7463090 HGB 12.5 g/dL 11/23/2011 CBC 3071542 HCT DET 37.3 % 11/23/2011 CBC 0162829 MCV 91.9 fL 11/23/2011 CBC 3086546 MCH 30.8 pg 11/23/2011 CBC 9038301 MCHC 33.5 g/dL 11/23/2011 CBC 6112890 PLT 222 10e9/L 11/23/2011 CBC 7426838 MPV 10.8 fL 11/23/2011 CBC 9998643 YANIRA % 64.2 % 11/23/2011 CBC 7481719 LY % 22.3 % 11/23/2011 CBC 6646531 MON % 11.3 % 11/23/2011 CBC 5546363 EOS % 1.8 % 11/23/2011 CBC 6778616 BASO % 0.4 % 11/23/2011 CBC 1763696 RDW 13.6 % 11/23/2011 CBC 3253534 ABS YANIRA 3.27 10e9/L 11/23/2011 CBC 7045913 ABS LYMPH 1.14 10e9/L 11/23/2011 CBC 2978332 ABS MONO 0.58 10e9/L 11/23/2011 CBC 8144179 ABS EOS 0.09 10e9/L 11/23/2011 CBC 4503970 ABS BASO 0.02 10e9/L 11/23/2011 CBC 0925731 RDW-SD 44.5 fL 11/23/2011 UA 72512 Specific [place] 1.005 03/04/2011 UA 90868 PH 6 03/04/2011 UA 46182 GLUCOSE N 03/04/2011 UA 97897 Protein N 03/04/2011 UA 77648 Blood ++ 03/04/2011 UA 29459 Bilirubin N 03/04/2011 UA 75415 Ketones N 03/04/2011 UA 36154 Urobilinogen N 03/04/2011 UA 18225 Nitrite N 03/04/2011 UA 29741 Leukocytes N 03/04/2011 URINALYSIS NONAUTO W/O SCOPE 11351 Specific [place] 1.010 DateTime(Free Text in Aprima) URINALYSIS NONAUTO W/O SCOPE 58270 PH 6.5 DateTime(Free Text in Aprima) URINALYSIS NONAUTO W/O SCOPE 05999 GLUCOSE neg DateTime(Free Text in Apr[employer]) URINALYSIS NONAUTO W/O SCOPE 74796 Protein neg DateTime(Free Text in Apr[employer]) URINALYSIS NONAUTO W/O SCOPE 83159 Blood 3+ DateTime(Free Text in Apr[employer]) URINALYSIS NONAUTO W/O SCOPE 06570 Bilirubin neg DateTime(Free Text in Aprima) URINALYSIS NONAUTO W/O SCOPE 66261 Ketones neg DateTime(Free Text in Apr[employer]) URINALYSIS NONAUTO W/O SCOPE 53735 Urobilinogen neg DateTime(Free Text in Apr[employer]) URINALYSIS NONAUTO W/O SCOPE 26863 Nitrite neg DateTime(Free Text in Aprima) URINALYSIS NONAUTO W/O SCOPE 77777 Leukocytes neg DateTime(Free Text in Aprima) URINALYSIS NONAUTO W/O SCOPE 42359 Specific [place] 1.010 DateTime(Free Text in Aprima) URINALYSIS NONAUTO W/O SCOPE 68297 PH 5 DateTime(Free Text in Aprima) URINALYSIS NONAUTO W/O SCOPE 17187 GLUCOSE neg DateTime(Free Text in Aprima) URINALYSIS NONAUTO W/O SCOPE 22889 Protein neg DateTime(Free Text in Aprima) URINALYSIS NONAUTO W/O SCOPE 84484 Blood 3+ DateTime(Free Text in Aprima) URINALYSIS NONAUTO W/O SCOPE 88392 Bilirubin neg DateTime(Free Text in Aprima) URINALYSIS NONAUTO W/O SCOPE 97828 Ketones neg DateTime(Free Text in Aprima) URINALYSIS NONAUTO W/O SCOPE 97684 Urobilinogen neg DateTime(Free Text in Aprima) URINALYSIS NONAUTO W/O SCOPE 95637 Nitrite neg DateTime(Free Text in Aprima) URINALYSIS NONAUTO W/O SCOPE 40267 Leukocytes neg DateTime(Free Text in Aprima) URINALYSIS NONAUTO W/O SCOPE 90409 Specific [place] 1.005 DateTime(Free Text in Aprima) URINALYSIS NONAUTO W/O SCOPE 70382 PH 8.5 DateTime(Free Text in Aprima) URINALYSIS NONAUTO W/O SCOPE 32841 GLUCOSE neg DateTime(Free Text in Aprima) URINALYSIS NONAUTO W/O SCOPE 78815 Protein neg DateTime(Free Text in Aprima) URINALYSIS NONAUTO W/O SCOPE 32349 Blood 1+ DateTime(Free Text in Aprima) URINALYSIS NONAUTO W/O SCOPE 77106 Bilirubin neg DateTime(Free Text in Aprima) URINALYSIS NONAUTO W/O SCOPE 17366 Ketones neg DateTime(Free Text in Aprima) URINALYSIS NONAUTO W/O SCOPE 92225 Urobilinogen neg DateTime(Free Text in Aprima) URINALYSIS NONAUTO W/O SCOPE 49929 Nitrite neg DateTime(Free Text in Aprima) URINALYSIS NONAUTO W/O SCOPE 69563 Leukocytes neg DateTime(Free Text in Aprima) URINALYSIS NONAUTO W/O SCOPE 88950 Specific [place] 1.005 DateTime(Free Text in Aprima) URINALYSIS NONAUTO W/O SCOPE 52000 PH 7 DateTime(Free Text in Aprima) URINALYSIS NONAUTO W/O SCOPE 88807 GLUCOSE neg DateTime(Free Text in Aprima) URINALYSIS NONAUTO W/O SCOPE 64591 Protein neg DateTime(Free Text in Aprima) URINALYSIS NONAUTO W/O SCOPE 96044 Blood large DateTime(Free Text in Aprima) URINALYSIS NONAUTO W/O SCOPE 85456 Bilirubin neg DateTime(Free Text in Aprima) URINALYSIS NONAUTO W/O SCOPE 12905 Ketones neg DateTime(Free Text in Aprima) URINALYSIS NONAUTO W/O SCOPE 24994 Urobilinogen 0.2 DateTime(Free Text in Aprima) URINALYSIS NONAUTO W/O SCOPE 91288 Nitrite neg DateTime(Free Text in Aprima) URINALYSIS NONAUTO W/O SCOPE 36053 Leukocytes neg DateTime(Free Text in Aprima) URINALYSIS NONAUTO W/O SCOPE 50026 Specific [place] 1.005 DateTime(Free Text in Aprima) URINALYSIS NONAUTO W/O SCOPE 78389 PH 7.5 DateTime(Free Text in Aprima) URINALYSIS NONAUTO W/O SCOPE 64920 GLUCOSE DateTime(Free Text in Aprima) URINALYSIS NONAUTO W/O SCOPE 94954 Protein trace DateTime(Free Text in Aprima) URINALYSIS NONAUTO W/O SCOPE 70436 Blood 4+ DateTime(Free Text in Aprima) URINALYSIS NONAUTO W/O SCOPE 79010 Bilirubin DateTime(Free Text in Aprima) URINALYSIS NONAUTO W/O SCOPE 85851 Ketones DateTime(Free Text in Apr) URINALYSIS NONAUTO W/O SCOPE 15794 Urobilinogen DateTime(Free Text in Apr) URINALYSIS NONAUTO W/O SCOPE 49369 Nitrite DateTime(Free Text in Apr) URINALYSIS NONAUTO W/O SCOPE 09981 Leukocytes trace DateTime(Free Text in ) Review of Systems System Result Effective Dates Ears/Nose/Throat/Neck No dizziness 12/10/2018 Ears/Nose/Throat/Neck No headache [...] FLU VACC PRSV FREE INC ANTIG CPT-4: 93961 03/27/2017 PPPS, SUBSEQ VISIT CPT- 4: G0439 01/23/2017 URINALYSIS NONAUTO W/O SCOPE CPT-4: 41362 05/17/2016 ADMIN INFLUENZA VIRUS VAC CPT-4: G0008 03/24/2016 FLU VACC PRSV FREE INC ANTIG CPT-4: 64385 03/24/2016 ADMIN PNEUMOCOCCAL VACCINE SNOMED CT: 89763021 CPT-4: G0009 05/13/2015 PNEUMOCOCCAL VACC [address]: 77234618 CPT-4: 31365 05/13/2015 Pneumococcal Polysaccharide Vaccine, 23-Valent, Ad Assigned to/Mela Bledsoe CPT-4: [id number] 07/11/2014 ADMIN PNEUMOCOCCAL VACCINE SNOMED CT: 80550648 CPT-4: G0009 07/11/2014 URINALYSIS NONAUTO W/O SCOPE CPT-4: 87551 05/14/2014 URINALYSIS NONAUTO W/O SCOPE CPT-4: 87115 05/06/2014 URINALYSIS NONAUTO W/O SCOPE CPT-4: 04769 04/29/2014 ADMIN INFLUENZA VIRUS VAC CPT-4: G0008 03/20/2014 FLU VAC NO PRSV 4 SCOTT 3 YRS+ Assigned to/Mela Bledsoe CPT-4: 54237Rvmdpkm 03/20/2014 URINALYSIS NONAUTO W/O SCOPE CPT-4: 28768 07/29/2013 URINALYSIS NONAUTO W/O SCOPE CPT-4: 73769 07/01/2013 URINALYSIS NONAUTO W/O SCOPE CPT-4: 03221 06/20/2013 ROUTINE VENIPUNCTURE CPT- 4: 88508 05/15/2013 ROUTINE VENIPUNCTURE CPT- 4: 94908 04/23/2013 ADMIN INFLUENZA VIRUS VAC CPT-4: G0008 04/23/2013 FLULAVAL VACC, 3 YRS & >, IM CPT-4: Q2036 04/23/2013 ROUTINE VENIPUNCTURE CPT- 4: 67002 12/17/2012 ROUTINE VENIPUNCTURE CPT- 4: 50074 12/14/2012 ROUTINE VENIPUNCTURE CPT- 4: 04544 12/11/2012 PRESCRIP TRANSMIT VIA ERX SY CPT-4: G8553 12/11/2012 PRESCRIP TRANSMIT VIA ERX SY CPT-4: G8553 10/30/2012 URINALYSIS NONAUTO W/O SCOPE CPT-4: 69208 09/13/2012 ADMIN INFLUENZA VIRUS VAC CPT-4: G0008 04/18/2012 FLULAVAL VACC, 3 YRS & >, IM CPT-4: Q2036 04/18/2012 URINALYSIS NONAUTO W/O SCOPE CPT-4: 67316 03/13/2012 ROUTINE VENIPUNCTURE CPT- 4: 47652 03/08/2012 URINALYSIS NONAUTO W/O SCOPE CPT-4: 58995 02/13/2012 PRESCRIP TRANSMIT VIA ERX SY CPT-4: G8553 02/13/2012 ROCEPHIN, PER 250 MG CPT- 4: J0696 11/23/2011 ROUTINE VENIPUNCTURE CPT- 4: 22785 11/23/2011 URINALYSIS NONAUTO W/O SCOPE CPT-4: 39424 11/23/2011 PRESCRIP TRANSMIT VIA ERX SY CPT-4: G8553 11/23/2011 REMOVE IMPACTED EAR WAX UNI CPT-4: 40535 10/17/2011 PRESCRIP TRANSMIT VIA ERX SY CPT-4: G8553 10/03/2011 PRESCRIP TRANSMIT VIA ERX SY CPT-4: G8553 08/08/2011 URINALYSIS NONAUTO W/O SCOPE CPT-4: 38652 03/15/2011 URINALYSIS NONAUTO W/O SCOPE CPT-4: 90784 03/04/2011 THER/PROPH/DIAG INJ SC/IM CPT-4: 17498 03/04/2011 ROCEPHIN, PER 250 MG CPT- 4: J0696 03/04/2011 Vital Signs Date Vital 12/10/2018 Blood Pressure 1: 120/56 Code: 8480-6 BMI: 19.9 Code: 44089-0 Heart Rate 1: 103 bpm Height: 5' SpO2: 93% Weight: 102 lbs 12/06/2018 Blood Pressure 1: 118/66 Code: 8480-6 BMI: 20.1 Code: 98124-2 Heart Rate 1: 134 bpm Height: 5' SpO2: 98% Weight: 103 lbs 11/30/2018 Blood Pressure 1: 122/64 Code: 8480-6 Height: Weight: 10/31/2018 Blood Pressure 1: 122/66 Code: 8480-6 BMI: 20.5 Code: 93293-5 Heart Rate 1: 83 bpm Height: 5' SpO2: 99% Weight: 105 lbs 10/09/2018 Blood Pressure 1: 126/60 Code: 8480-6 BMI: 19.9 Code: 95778-2 Heart Rate 1: 66 bpm Height: 5' SpO2: 96% Weight: 102 lbs 09/12/2018 Blood Pressure 1: 156/72 Code: 8480-6 BMI: 19.9 Code: 03845-3 Heart Rate 1: 68 bpm Height: 5' Temperature: 36.6 (C) / 97.8 (F) Weight: 102 lbs 08/14/2018 Blood Pressure 1: 136/68 Code: 8480-6 BMI: 21.1 Code: 22375-4 Heart Rate 1: 92 bpm Height: 5' Weight: 108 lbs 07/26/2018 Blood Pressure 1: 128/76 Code: 8480-6 BMI: 21.1 Code: 03983-7 Heart Rate 1: 88 bpm Height: 5' Weight: 108 lbs 06/04/2018 Blood Pressure 1: 124/72 Code: 8480-6 BMI: 21.3 Code: 73276-6 Heart Rate 1: 98 bpm Height: 5' Weight: 109 lbs 01/31/2018 Blood Pressure 1: 116/68 Code: 8480-6 BMI: 21.1 Code: 01933-3 Heart Rate 1: 89 bpm Height: 5' SpO2: 98% Weight: 108 lbs 01/17/2018 Blood Pressure 1: 134/74 Code: 8480-6 BMI: 21.3 Code: 98673-7 Heart Rate 1: 74 bpm Height: 5' SpO2: 96% Waist Measure (cm): 71 cm Weight: 109 lbs 12/14/2017 Blood Pressure 1: 150/78 Code: 8480-6 BMI: 21.5 Code: 18303-7 Heart Rate 1: 77 bpm Height: 5' SpO2: 98% Temperature: 36.7 (C) / 98.1 (F) Weight: 110 lbs 12/07/2017 Blood Pressure 1: 134/70 Code: 8480-6 Heart Rate 1: 76 bpm Height: SpO2: 98% Temperature: 36.8 (C) / 98.2 (F) Weight: 11/14/2017 Blood Pressure 1: 152/84 Code: 8480-6 BMI: 21.9 Code: 82103-5 Heart Rate 1: 95 bpm Height: 5' SpO2: 93% Weight: 112 lbs 03/27/2017 Blood Pressure 1: 122/70 Code: 8480-6 BMI: 21.3 Code: 39282-2 Heart Rate 1: 75 bpm Height: 5' Weight: 109 lbs 01/23/2017 BMI: 21.5 Code: 81019-8 Height: 5' Weight: 110 lbs 01/19/2017 Blood Pressure 1: 112/60 Code: 8480-6 BMI: 21.5 Code: 07172-2 Heart Rate 1: 54 bpm Height: 5' SpO2: 97% Weight: 110 lbs 11/29/2016 Blood Pressure 1: 126/68 Code: 8480-6 Height: 5' Weight: 11/23/2016 Blood Pressure 1: 130/72 Code: 8480-6 BMI: 21.9 Code: 55829-0 Heart Rate 1: 48 bpm Height: 5' SpO2: 97% Temperature: 36.7 (C) / 98.0 (F) Weight: 112 lbs 11/21/2016 Blood Pressure 1: 134/76 Code: 8480-6 BMI: 21.9 Code: 99493-2 Heart Rate 1: 41 bpm Height: 5' SpO2: 94% Temperature: 36.9 (C) / 98.4 (F) Weight: 112 lbs 11/08/2016 Blood Pressure 1: 126/74 Code: 8480-6 Heart Rate 1: 82 bpm Height: 5' SpO2: 94% Weight: 11/02/2016 Blood Pressure 1: 112/66 Code: 8480-6 Heart Rate 1: 72 bpm Height: 5' SpO2: 95% Weight: 10/27/2016 Blood Pressure 1: 130/64 Code: 8480-6 BMI: 21.7 Code: 12540-4 Heart Rate 1: 81 bpm Height: 5' SpO2: 96% Weight: 111 lbs 08/31/2016 Blood Pressure 1: 132/72 Code: 8480-6 BMI: 22.5 Code: 69083-2 Heart Rate 1: 66 bpm Height: 5' Weight: 115 lbs 07/27/2016 Blood Pressure 1: 166/74 Code: 8480-6 BMI: 23.2 Code: 81754-8 Heart Rate 1: 48 bpm Height: 5' SpO2: 90% Temperature: 36.8 (C) / 98.2 (F) Weight: 119 lbs 06/23/2016 Blood Pressure 1: 128/70 Code: 8480-6 BMI: 22.3 Code: 81868-3 Heart Rate 1: 75 bpm Height: 5' SpO2: 97% Weight: 114 lbs 06/09/2016 BMI: 22.7 Code: 88886-8 Heart Rate 1: 73 bpm Height: 5' SpO2: 97% Weight: 116 lbs 05/25/2016 Blood Pressure 1: 138/62 Code: 8480-6 BMI: 22.8 Code: 44913-4 Heart Rate 1: 76 bpm Height: 5' Weight: 117 lbs 05/17/2016 Blood Pressure 1: 116/70 Code: 8480-6 BMI: 22.8 Code: 10585-3 Heart Rate 1: 74 bpm Height: 5' SpO2: 94% Weight: 117 lbs 03/24/2016 Blood Pressure 1: 154/78 Code: 8480-6 BMI: 22.5 Code: 30789-3 Heart Rate 1: 78 bpm Height: 5' SpO2: 97% Weight: 115 lbs 02/02/2016 Blood Pressure 1: 132/70 Code: 8480-6 BMI: 22.3 Code: 39930-5 Heart Rate 1: 74 bpm Height: 5' SpO2: 94% Weight: 114 lbs 2016 Blood Pressure 1: 120/62 Code: 8480-6 BMI: 22.0 Code: 31662-5 Heart Rate 1: 68 bpm Height: 5' Weight: 112 lbs 8 oz 12/21/2015 Blood Pressure 1: 122/82 Code: 8480-6 BMI: 21.9 Code: 61613-1 Heart Rate 1: 83 bpm Height: 5' SpO2: 93% Temperature: 37.1 (C) / 98.7 (F) Weight: 112 lbs 11/03/2015 Blood Pressure 1: 122/72 Code: 8480-6 BMI: 22.4 Code: 93967-7 Heart Rate 1: 62 bpm Height: 5' Weight: 114 lbs 8 oz 10/19/2015 Blood Pressure 1: 138/62 Code: 8480-6 BMI: 21.1 Code: 93624-0 Heart Rate 1: 79 bpm Height: 5' Weight: 108 lbs 10/13/2015 Blood Pressure 1: 120/62 Code: 8480-6 BMI: 21.0 Code: 83805-4 Heart Rate 1: 76 bpm Height: 5' SpO2: 98% Weight: 108 lbs 09/29/2015 Blood Pressure 1: 130/70 Code: 8480-6 BMI: 20.2 Code: 11063-8 Heart Rate 1: 72 bpm Height: 5' Weight: 104 lbs 09/15/2015 Blood Pressure 1: 128/78 Code: 8480-6 BMI: 19.9 Code: 88655-0 Heart Rate 1: 72 bpm Height: 5' Weight: 102 lbs 8 oz 09/01/2015 Blood Pressure 1: 128/68 Code: 8480-6 BMI: 19.8 Code: 82201-1 Height: 5' Weight: 102 lbs 05/26/2015 Blood Pressure 1: 140/68 Code: 8480-6 BMI: 19.0 Code: 29074-7 Heart Rate 1: 70 bpm Height: 5' Weight: 98 lbs 05/21/2015 Blood Pressure 1: 140/78 Code: 8480-6 BMI: 19.2 Code: 39273-5 Heart Rate 1: 85 bpm Height: 5' SpO2: 95% Weight: 99 lbs 05/07/2015 Blood Pressure 1: 140/82 Code: 8480-6 BMI: 19.0 Code: 92292-1 Heart Rate 1: 76 bpm Height: 5' Weight: 98 lbs 03/23/2015 Blood Pressure 1: 142/60 Code: 8480-6 BMI: 18.6 Code: 95272-9 Heart Rate 1: 52 bpm Height: 5' Weight: 96 lbs 03/09/2015 Blood Pressure 1: 138/74 Code: 8480-6 BMI: 18.8 Code: 56372-4 Heart Rate 1: 60 bpm Height: 5' Weight: 97 lbs 10/30/2014 Blood Pressure 1: 112/82 Code: 8480-6 BMI: 19.0 Code: 53710-0 Heart Rate 1: 64 bpm Height: 5' Weight: 98 lbs 07/11/2014 Blood Pressure 1: 146/70 Code: 8480-6 BMI: 18.8 Code: 99438-4 Heart Rate 1: 68 bpm Height: 5' Weight: 97 lbs 05/20/2014 Blood Pressure 1: 142/76 Code: 8480-6 BMI: 18.6 Code: 24688-7 Heart Rate 1: 78 bpm Height: 5' Weight: 96 lbs 04/29/2014 Blood Pressure 1: 138/62 Code: 8480-6 BMI: 18.3 Code: 56411-7 Heart Rate 1: 80 bpm Height: 5' Weight: 94 lbs 8 oz 03/20/2014 Blood Pressure 1: 142/68 Code: 8480-6 BMI: 18.6 Code: 03890-9 Heart Rate 1: 96 bpm Height: 5' Weight: 96 lbs 03/05/2014 Blood Pressure 1: 122/72 Code: 8480-6 BMI: 18.8 Code: 86018-9 Heart Rate 1: 82 bpm Height: 5' SpO2: 97% Weight: 97 lbs 01/29/2014 Blood Pressure 1: 124/78 Code: 8480-6 BMI: 18.8 Code: 91310-8 Heart Rate 1: 60 bpm Height: 5' Weight: 97 lbs 01/14/2014 Blood Pressure 1: 120/58 Code: 8480-6 BMI: 19.2 Code: 15004-4 Heart Rate 1: 56 bpm Height: 5' Temperature: 36.9 (C) / 98.4 (F) Weight: 99 lbs 12/25/2013 Blood Pressure 1: 118/78 Code: 8480-6 BMI: 19.2 Code: 65269-6 Heart Rate 1: 68 bpm Height: 5' Weight: 99 lbs 11/27/2013 Blood Pressure 1: 102/68 Code: 8480-6 BMI: 19.4 Code: 61217-8 Heart Rate 1: 56 bpm Height: 5' Weight: 100 lbs 09/12/2013 Blood Pressure 1: 142/62 Code: 8480-6 BMI: 19.7 Code: 02685-4 Heart Rate 1: 72 bpm Height: 5'1" Weight: 104 lbs 08/15/2013 Blood Pressure 1: 152/92 Code: 8480-6 Heart Rate 1: 96 bpm Weight: 102 lbs 08/01/2013 Blood Pressure 1: 122/68 Code: 8480-6 BMI: 19.1 Code: 99280-2 Heart Rate 1: 68 bpm Height: 5'1" Weight: 101 lbs 07/01/2013 Blood Pressure 1: 130/72 Code: 8480-6 BMI: 19.5 Code: 13745-0 Heart Rate 1: 80 bpm Height: 5'1" Temperature: 36.1 (C) / 97.0 (F) Weight: 103 lbs 05/29/2013 Blood Pressure 1: 126/72 Code: 8480-6 BMI: 19.3 Code: 72837-7 Heart Rate 1: 80 bpm Height: 5'1" Weight: 102 lbs 05/15/2013 Blood Pressure 1: 156/74 Code: 8480-6 BMI: 19.3 Code: 92423-2 Heart Rate 1: 88 bpm Height: 5'1" Weight: 102 lbs 04/23/2013 Blood Pressure 1: 140/82 Code: 8480-6 BMI: 19.3 Code: 75127-2 Heart Rate 1: 72 bpm Height: 5'1" Weight: 102 lbs 03/21/2013 Blood Pressure 1: 142/74 Code: 8480-6 Heart Rate 1: 92 bpm Weight: 103 lbs 01/16/2013 Blood Pressure 1: 120/56 Code: 8480-6 BMI: 20.0 Code: 19606-5 Heart Rate 1: 72 bpm Height: 5'1" Weight: 106 lbs 12/19/2012 Blood Pressure 1: 118/66 Code: 8480-6 Heart Rate 1: 84 bpm Weight: 12/10/2012 Blood Pressure 1: 132/62 Code: 8480-6 Heart Rate 1: 64 bpm Weight: 103 lbs 10/30/2012 Blood Pressure 1: 122/66 Code: 8480-6 BMI: 19.9 Code: 81979-8 Heart Rate 1: 61 bpm Height: 5'1" [...] 1: 118/72 Code: 8480-6 BMI: 21.0 Code: 42620-5 Heart Rate 1: 66 bpm Height: 5'1" Respiratory Rate: 16 bpm Weight: 111 lbs 2012 Blood Pressure 1: 122/62 Code: 8480-6 Heart Rate 1: 68 bpm Weight: 110 lbs 12/01/2011 Blood Pressure 1: 150/60 Code: 8480-6 BMI: 20.8 Code: 68964-6 Heart Rate 1: 60 bpm Height: 5'1" Respiratory Rate: 16 bpm Weight: 110 lbs 11/23/2011 Blood Pressure 1: 170/68 Code: 8480-6 BMI: 21.1 Code: 82506-5 Heart Rate 1: 64 bpm Height: 5'1" Temperature: 36.3 (C) / 97.3 (F) Weight: 111 lbs 8 oz 10/17/2011 Blood Pressure 1: 148/62 Code: 8480-6 Heart Rate 1: 74 bpm 10/03/2011 Blood Pressure 1: 102/48 Code: 8480-6 BMI: 21.4 Code: 96869-9 Heart Rate 1: 76 bpm Height: 5'1" Respiratory Rate: 16 bpm Weight: 113 lbs 08/08/2011 Blood Pressure 1: 128/60 Code: 8480-6 Heart Rate 1: 80 bpm Respiratory Rate: 16 bpm Weight: 113 lbs 05/09/2011 Blood Pressure 1: 130/62 Code: 8480-6 BMI: 20.7 Code: 84871-1 Heart Rate 1: 64 bpm Height: 5'1" Respiratory Rate: 16 bpm Weight: 109 lbs 8 oz 03/29/2011 Blood Pressure 1: 120/62 Code: 8480-6 BMI: 20.2 Code: 41748-9 Heart Rate 1: 66 bpm Height: 5'1" Respiratory Rate: 12 bpm Weight: 107 lbs 03/15/2011 Blood Pressure 1: 120/64 Code: 8480-6 BMI: 19.8 Code: 13756-8 Heart Rate 1: 76 bpm Height: 5'1" Respiratory Rate: 16 bpm Weight: 105 lbs Functional Status No Functional Status data History of Present Illness Symptom Name Status Result Effective Date Notes Location in the throat 12/10/2018 None Quality [...] Annual Medicare Wellness Exam Handling Stress usually ynaely effectively 01/23/2017 None Annual Medicare Wellness Exam [...] contacts 03/20/2014 sat next to neighbor in [place] who had tonsillitis sore throat Pertinent Findings [...] data Encounters Encounter Performer Location Codes Date ([id number]) Miscellaneous no charge Diagnosis: Hypo-osmolality and hyponatremia[ICD10: E87.1] Diagnosis: Paroxysmal atrial fibrillation[ICD10: I48.0] Diagnosis: Muscle weakness (generalized)[ICD10: M62.81] Diagnosis: Major depressive disorder, recurrent, mild[ICD10: F33.0] Karma Bahena MD, [facility] CPT-4: 99969 12/10/2018 ([id number]) 11011 EST. PATIENT, LEVEL III Diagnosis: Chronic atrial fibrillation[ICD10: I48.2] Diagnosis: Cough[ICD10: R05] [facility] CPT-4: 06724 12/06/2018 ([id number]) 58194 EST. PATIENT, LEVEL III Diagnosis: Acute laryngopharyngitis[ICD10: J06.0] Laura Bahena MD, [facility] CPT-4: 92520 11/30/2018 [id number]) 68754 EST. 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 PATIENT, LEVEL III Diagnosis: Raynaud's syndrome without gangrene[ICD10: I73.00] Diagnosis: Pain in left hand[ICD10: M79.642] Diagnosis: Pain in right hand[ICD10: M79.641] Karma Bahena MD, [facility] CPT- 4: 99135 10/09/2018 61835 EST. PATIENT, LEVEL III Diagnosis: Cough[ICD10: R05] Diagnosis: Acute laryngopharyngitis[ICD10: J06.0] Diagnosis: Other allergic rhinitis[ICD10: J30.89] Diagnosis: Raynaud's syndrome without gangrene[ICD10: I73.00] Katharine Bahena MD, [facility] CPT-4: 81006 09/12/2018 ([id number]) 02829 EST. PATIENT, LEVEL IV Diagnosis: Raynaud's syndrome without gangrene[ICD10: I73.00] Diagnosis: Pain in right toe(s)[ICD10: M79.674] Diagnosis: Chronic atrial fibrillation[ICD10: I48.2] Karma Bahena MD, [facility] CPT-4: 57831 08/14/2018 ([id number]) 85135 EST. PATIENT, LEVEL IV Diagnosis: Chronic atrial fibrillation[ICD10: I48.2] Diagnosis: Sebaceous cyst[ICD10: L72.3] Diagnosis: Raynaud's syndrome without gangrene[ICD10: I73.00] Karma Bahena MD, [facility] CPT-4: 58794 07/26/2018 ([id number]) 47702 EST. PATIENT, LEVEL IV Diagnosis: Essential (primary) hypertension[ICD10: I10] Diagnosis: Atrophy of thyroid (acquired)[ICD10: E03.4] Diagnosis: Gastro-esophageal reflux disease without esophagitis[ICD10: K21.9] Karma Bahena MD, [facility] CPT-4: 29512 06/04/2018 ([id number]) 59794 EST. PATIENT, LEVEL IV Diagnosis: Essential (primary) hypertension[ICD10: I10] Diagnosis: Atrophy of thyroid (acquired)[ICD10: E03.4] Diagnosis: Other custodial (current) drug therapy[ICD10: Z79.899] Karma Bahena MD, [facility] CPT-4: 08027 01/31/2018 ([id number]) 71250 EST. PATIENT, LEVEL IV Diagnosis: Essential (primary) hypertension[ICD10: I10] Diagnosis: Chronic atrial fibrillation[ICD10: I48.2] Diagnosis: Allergic rhinitis due to pollen[ICD10: J30.1] Diagnosis: Cough[ICD10: R05] Karma Bahena MD, [facility] CPT-4: 81860 12/14/2017 90769 EST. PATIENT, LEVEL IV Diagnosis: Other allergic rhinitis[ICD10: J30.89] Katharine Bahena MD, [facility] CPT- 4: 72306 12/07/2017 ([id number]) 37922 EST. PATIENT, LEVEL IV Diagnosis: Essential (primary) hypertension[ICD10: I10] Diagnosis: Chronic atrial fibrillation[ICD10: I48.2] Diagnosis: Atrophy of thyroid (acquired)[ICD10: E03.4] Karma Bahena MD, [facility] CPT-4: 32079 11/14/2017 ([id number]) 95927 EST. PATIENT, LEVEL IV Diagnosis: Essential (primary) hypertension[ICD10: I10] Diagnosis: Localized edema[ICD10: R60.0] Diagnosis: Encounter for immunization[ICD10: Z23] Diagnosis: Age-related osteoporosis without current pathological fracture[ICD10: M81.0] Karma Bahena MD, [facility] CPT-4: 80016 03/27/2017 ([id number]) 97921 EST. PATIENT, LEVEL IV Diagnosis: Essential (primary) hypertension[ICD10: I10] Diagnosis: Chronic atrial fibrillation[ICD10: I48.2] Diagnosis: Dysphonia[ICD10: R49.0] Karma Bahena MD, [facility] CPT-4: 40310 01/19/2017 ([id number]) Miscellaneous no charge Diagnosis: Cough[ICD10: R05] Diagnosis: Acute upper respiratory infection, unspecified[ICD10: J06.9] Laura Bahena MD, [facility] CPT-4: 17305 11/29/2016 [id number] EST. PATIENT, LEVEL III Diagnosis: Cough[ICD10: R05] Diagnosis: Acute laryngopharyngitis[ICD10: J06.0] Katharine Bahena MD, [facility] CPT- 4: 13492 11/23/2016 ([id number]) 00401 EST. PATIENT, LEVEL III Diagnosis: Acute laryngopharyngitis[ICD10: J06.0] Laura Bahena MD, [facility] CPT-4: 31061 11/21/2016 ([id number]) Miscellaneous no charge Diagnosis: Laceration without foreign body of right forearm, subsequent encounter[ICD10: S51.811D] Karma Bhaena MD, [facility] CPT-4: 20987 11/17/2016 ([id number]) Miscellaneous no charge Diagnosis: Laceration without foreign body of right forearm, subsequent encounter[ICD10: S51.811D] Karma Bahena MD [facility] CPT-4: 97721 11/14/2016 ([id number]) Miscellaneous no charge Diagnosis: Laceration without foreign body of right forearm, subsequent encounter[ICD10: S51.811D] Karma Bahena MD [facility] CPT-4: 21603 11/11/2016 ([id number]) Miscellaneous no charge Diagnosis: Laceration without foreign body of right forearm, subsequent encounter[ICD10: S51.811D] Karma Bahena MD [facility] CPT-4: 46458 11/10/2016 ([id number]) 96131 EST. PATIENT, LEVEL II Diagnosis: Laceration without foreign body of right forearm, subsequent encounter[ICD10: S51.811D] Karma Bahena MD [facility] CPT-4: 45483 11/08/2016 ([id number]) 21439 EST. PATIENT, LEVEL IV Diagnosis: Atrophy of thyroid (acquired)[ICD10: E03.4] Diagnosis: Chronic atrial fibrillation[ICD10: I48.2] Diagnosis: Laceration without foreign body of right forearm, subsequent encounter[ICD10: S51.811D] Karma Bahena MD, [facility] CPT-4: 32036 11/02/2016 ([id number]) 57617 EST. PATIENT, LEVEL III Diagnosis: Laceration without foreign body of right forearm, initial encounter[ICD10: S51.811A] Laura Bahena MD, [facility] CPT-4: 62698 10/27/2016 ([id number]) 34890 EST. PATIENT, LEVEL IV Diagnosis: Essential (primary) hypertension[ICD10: I10] Diagnosis: Chronic atrial fibrillation[ICD10: I48.2] Karma Bahena MD, [facility] CPT-4: 20595 08/31/2016 ([id number]) 33678 EST. PATIENT, LEVEL IV Diagnosis: Localized edema[ICD10: R60.0] Diagnosis: Essential (primary) hypertension[ICD10: I10] Diagnosis: Abdominal distension (gaseous)[ICD10: R14.0] Karma Bahena MD, [facility] CPT-4: 58387 07/27/2016 ([id number]) 16168 EST. PATIENT, LEVEL IV Diagnosis: Essential (primary) hypertension[ICD10: I10] Diagnosis: Chronic atrial fibrillation[ICD10: I48.2] Diagnosis: Localized edema[ICD10: R60.0] Karma Bahena MD [facility] CPT-4: 95091 06/23/2016 ([id number]) 63188 EST. PATIENT, LEVEL III Diagnosis: Localized edema[ICD10: R60.0] Karma Bahena MD [facility] CPT-4: 74711 06/09/2016 ([id number]) 91397 EST. PATIENT, LEVEL III Diagnosis: Irritable bowel syndrome without diarrhea[ICD10: K58.9] Diagnosis: Pruritus ani[ICD10: L29.0] Karma Bahena MD, [facility] CPT-4: 87921 05/25/2016 ([id number]) 45995 EST. PATIENT, LEVEL III Diagnosis: Abdominal distension (gaseous)[ICD10: R14.0] Diagnosis: Encounter for screening mammogram for malignant neoplasm of breast[ICD10: Z12.31] Karma Bahena MD, [facility] CPT-4: 22307 05/17/2016 ([id number]) 76869 EST. PATIENT, LEVEL IV Diagnosis: Essential (primary) hypertension[ICD10: I10] Diagnosis: First degree hemorrhoids[ICD10: K64.0] Diagnosis: Encounter for immunization[ICD10: Z23] Karma Bahena MD, [facility] CPT-4: 85085 03/24/2016 ([id number]) 88927 EST. PATIENT, LEVEL III Diagnosis: Epidermal cyst[ICD10: L72.0] Diagnosis: Essential (primary) hypertension[ICD10: I10] Diagnosis: Chronic atrial fibrillation[ICD10: I48.2] Diagnosis: Other custodial (current) drug therapy[ICD10: Z79.899] Karma Bahena MD, [facility] CPT-4: 20953 02/02/2016 ([id number]) 91818 EST. PATIENT, LEVEL III Diagnosis: Acute anal fissure[ICD10: K60.0] Karma Bahena MD, [facility] CPT-4: 19671 2016 ([id number]) 23945 EST. PATIENT, LEVEL III Diagnosis: Allergic rhinitis due to pollen[ICD10: J30.1] Diagnosis: Acute upper respiratory infection, unspecified[ICD10: J06.9] Laura Bahena MD, [facility] CPT-4: 43247 12/21/2015 ([id number]) 42483 EST. PATIENT, LEVEL III Diagnosis: Essential (primary) hypertension[ICD10: I10] Diagnosis: Chronic atrial fibrillation[ICD10: I48.2] Karma Bahena MD, [facility] CPT-4: 89602 11/03/2015 ([id number]) Miscellaneous no charge Diagnosis: Impacted cerumen, right ear[ICD10: H61.21] Katharine Bahena MD, [facility] CPT-4: 14131 10/19/2015 01102 EST. PATIENT, LEVEL IV Diagnosis: Impacted cerumen, right ear[ICD10: H61.21] Diagnosis: Other allergic rhinitis[ICD10: J30.89] Katharine Bahena MD, [facility] CPT- 4: 86603 10/13/2015 ([id number]) 04737 EST. PATIENT, LEVEL IV Diagnosis: Essential (primary) hypertension[ICD10: I10] Diagnosis: Chronic atrial fibrillation[ICD10: I48.2] Diagnosis: Urge incontinence[ICD10: N39.41] Diagnosis: Age-related osteoporosis without current pathological fracture[ICD10: M81.0] Karma Bahena MD [facility] CPT-4: 33046 09/29/2015 ([id number]) 20822 EST. PATIENT, LEVEL IV Diagnosis: Essential (primary) hypertension[ICD10: I10] Diagnosis: Chronic atrial fibrillation[ICD10: I48.2] Diagnosis: Irritable bowel syndrome without diarrhea[ICD10: K58.9] Diagnosis: Unspecified hemorrhoids[ICD10: K64.9] Karma Bahena MD [facility] CPT-4: 23532 09/15/2015 ([id number]) 68045 EST. 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 PATIENT, LEVEL III Diagnosis: Hematuria, unspecified[ICD10: R31.9] Diagnosis: Other urethritis[ICD10: N34.2] Diagnosis: Other specified noninflammatory disorders of vagina[ICD10: N89.8] Karma Bahena MD [facility] CPT-4: 41607 05/26/2015 20399 EST. PATIENT, LEVEL IV Diagnosis: Gout, unspecified[ICD10: M10.9] Karma Bahena MD, [facility] CPT-4: 14190 05/21/2015 ([id number]) 69315 EST. PATIENT, LEVEL IV Diagnosis: Chronic atrial fibrillation[ICD10: I48.2] Diagnosis: Irritable bowel syndrome without diarrhea[ICD10: K58.9] Diagnosis: Cystocele, unspecified[ICD10: N81.10] Diagnosis: Urge incontinence[ICD10: N39.41] Diagnosis: Fecal smearing[ICD10: R15.1] Diagnosis: Hypothyroidism, unspecified[ICD10: E03.9] Karma Bahena MD [facility] CPT-4: 84431 05/07/2015 ([id number]) 82924 EST. PATIENT, LEVEL III Diagnosis: Atrial fibrillation[ICD9: 427.31] Diagnosis: Bloating[ICD9: 787.3] Karma Bahena MD [facility] CPT-4: 09354 03/23/2015 ([id number]) 34008 EST. PATIENT, LEVEL IV Diagnosis: Abdominal pain[ICD9: 789.00] Diagnosis: Atrial fibrillation[ICD9: 427.31] Diagnosis: ENCNTR LONG-ANTICOAG USE[ICD9: V58.61] Karma Bahena MD [facility] CPT-4: 31955 03/09/2015 ([id number]) 76313 EST. PATIENT, LEVEL IV Diagnosis: HEMATURIA NOS[ICD9: 599.70] Diagnosis: Atrial fibrillation[ICD9: 427.31] Diagnosis: HYPOTHYROIDISM[ICD9: 244.9] Karma Bahena MD [facility] CPT-4: 39151 10/30/2014 [id number]) 00940 EST. PATIENT, LEVEL IV Diagnosis: Atrial fibrillation[ICD9: 427.31] Diagnosis: ALLERGIC RHINITIS[ICD9: 477.9] Diagnosis: Need for pneumococcal vaccine[ICD9: V03.82] Diagnosis: Osteoarthritis[ICD9: 715.90] Diagnosis: Osteoporosis[ICD9: 733.00] Karma Bahena MD [facility] CPT-4: 65331 07/11/2014 [id number]) 26088 EST. PATIENT, LEVEL III Diagnosis: Urge incontinence[ICD9: 788.31] Diagnosis: Dysuria[ICD9: 788.1] Karma Bahena MD [facility] CPT-4: 27705 05/20/2014 [id number]) 03768 EST. PATIENT, LEVEL IV Diagnosis: Atrial fibrillation[ICD9: 427.31] Diagnosis: Hematuria[ICD9: 599.70] Diagnosis: Dysuria[ICD9: 788.1] Diagnosis: ESSENTIAL HYPERTENSION[ICD9: 401.9] Karma Bahena MD [facility] CPT- 4: 06198 04/29/2014 ([id number]) 55921 EST. PATIENT, LEVEL IV Diagnosis: ESSENTIAL HYPERTENSION[ICD9: 401.9] Diagnosis: ALLERGIC RHINITIS[ICD9: 477.9] Karma Bahena MD [facility] CPT-4: 41639 03/20/2014 ([id number]) 31624 EST. PATIENT, LEVEL IV Diagnosis: ESSENTIAL HYPERTENSION[ICD9: 401.9] Diagnosis: ATRIAL FIBRILLATION[ICD9: 427.31] Diagnosis: Irritable bowel[ICD9: 564.1] Karma Bahena MD [facility] CPT-4: 31440 03/05/2014 ([id number]) 53552 EST. PATIENT, LEVEL IV Diagnosis: Esophageal reflux[ICD9: 530.81] Diagnosis: DIARRHEA[ICD9: 787.91] Diagnosis: ABDOM PAIN NOS SITE[ICD9: 789.00] Karma Bahena MD [facility] CPT- 4: 69101 01/29/2014 ([id number]) 54699 EST. PATIENT, LEVEL III Diagnosis: Irritable bowel[ICD9: 564.1] Diagnosis: DIARRHEA[ICD9: 787.91] Laura Bahena MD [facility] CPT-4: 57430 01/14/2014 ([id number]) 94022 EST. PATIENT, LEVEL IV Diagnosis: ESSENTIAL HYPERTENSION[ICD9: 401.9] Diagnosis: ATRIAL FIBRILLATION[ICD9: 427.31] Diagnosis: URGE INCONTINENCE[ICD9: 788.31] Diagnosis: MALAISE AND FATIGUE[ICD9: 780.79] Diagnosis: Dyspnea[ICD9: 786.09] Karma Bahena MD [facility] CPT-4: 12406 12/25/2013 ([id number]) 09308 EST. PATIENT, LEVEL IV Diagnosis: ESSENTIAL HYPERTENSION[SNOMED: 75954581] Diagnosis: ATRIAL FIBRILLATION[ICD9: 427.31] Diagnosis: Abdominal pain[ICD9: 789.00] Diagnosis: ESOPHAGEAL REFLUX[ICD9: 530.81] Karma Bahena MD [facility] CPT-4: 04933 11/27/2013 ([id number]) 81045 EST. PATIENT, LEVEL IV Diagnosis: ESSENTIAL HYPERTENSION[SNOMED: 13644333] Diagnosis: ATRIAL FIBRILLATION[ICD9: 427.31] Diagnosis: Chronic osteoarthritis[ICD9: 715.90] Karma Bahena MD [facility] CPT- 4: 43968 09/12/2013 ([id number]) 23025 EST. PATIENT, LEVEL III Diagnosis: ESSENTIAL HYPERTENSION[SNOMED: 71312737] Diagnosis: Bruising[ICD9: 924.9] Diagnosis: ENCNTR LONG-RX USE NEC[ICD9: V58.69] Karma Bahena MD [facility] CPT- 4: 08081 08/15/2013 ([id number]) 27589 EST. PATIENT, LEVEL IV Diagnosis: ESSENTIAL HYPERTENSION[SNOMED: 41819943] Diagnosis: Hematuria[ICD9: 599.70] Diagnosis: Dysuria[ICD9: 788.1] Karma Bahena MD [facility] CPT-4: 09679 08/01/2013 ([id number]) 33582 EST. PATIENT, LEVEL III Diagnosis: UTI[ICD9: 599.0] Diagnosis: Hematuria[ICD9: 599.70] Laura Bahena MD [facility] CPT-4: 62551 07/01/2013 ([id number]) 09510 EST. PATIENT, LEVEL III Diagnosis: ATRIAL FIBRILLATION[ICD9: 427.31] Diagnosis: ESSENTIAL HYPERTENSION[SNOMED: 55685470] Karma Bahena MD [facility] CPT-4: 75129 05/29/2013 ([id number]) 62176 EST. PATIENT, LEVEL IV Diagnosis: Atrial fibrillation[ICD9: 427.31] Diagnosis: Encounter for monitoring digoxin therapy[ICD9: V58.83] Diagnosis: ESSENTIAL HYPERTENSION[SNOMED: 68783767] Karma Bahena MD [facility] CPT-4: 91516 05/15/2013 ([id number]) 53339 EST. PATIENT, LEVEL IV Diagnosis: ESSENTIAL HYPERTENSION[SNOMED: 86227524] Diagnosis: ATRIAL FIBRILLATION[ICD9: 427.31] Diagnosis: PALPITATIONS[ICD9: 785.1] Diagnosis: Dizziness and giddiness[ICD9: 780.4] Karma Bahena MD, [facility] CPT- 4: 04090 04/23/2013 ([id number]) 59980 EST. PATIENT, LEVEL III Diagnosis: OTHER CONSTIPATION[ICD9: 564.09] Diagnosis: ABDOM PAIN NOS SITE[ICD9: 789.00] Laura Bahena MD, [facility] CPT- 4: 48235 03/21/2013 ([id number]) 51678 EST. PATIENT, LEVEL IV Diagnosis: ESSENTIAL HYPERTENSION[SNOMED: 51016687] Diagnosis: Atrial fibrillation[ICD9: 427.31] Karma Bahena MD [facility] CPT- 4: 01910 01/16/2013 ([id number]) Miscellaneous no charge Diagnosis: CELLULITIS OF HAND[ICD9: 682.4] Karma Bahena MD [facility] CPT-4: 93548 12/19/2012 ([id number]) Miscellaneous no charge Diagnosis: ENCOUNTER FOR THERAPEUTIC DRUG MONITORING[ICD9: V58.83] Diagnosis: CELLULITIS OF HAND[ICD9: 682.4] Karma Bahena MD [facility] CPT-4: 11057 12/14/2012 Miscellaneous no charge Diagnosis: CELLULITIS OF HAND[ICD9: 682.4] Karma Bahena MD [facility] CPT-4: 21928 12/12/2012 21013 EST. PATIENT, LEVEL II Diagnosis: CELLULITIS OF HAND[ICD9: 682.4] Diagnosis: ENCNTR LONG-RX USE NEC[ICD9: V58.69] Diagnosis: LONG-TERM USE ANTICOAGUL[ICD9: V58.61] Karma Bahena MD [facility] CPT-4: 07369 12/11/2012 ([id number]) 46358 EST. PATIENT, LEVEL III Diagnosis: CELLULITIS OF HAND[ICD9: 682.4] Karma Bahena MD [facility] CPT-4: 89251 12/10/2012 ([id number]) 11538 EST. PATIENT, LEVEL IV Diagnosis: Elevated digoxin level[ICD9: 796.0] Diagnosis: ATRIAL FIBRILLATION[ICD9: 427.31] Diagnosis: Inflammatory arthritis[ICD9: 714.9] Karma Bahena MD [facility] CPT- 4: 95432 10/30/2012 ([id number]) 39892 EST. PATIENT, LEVEL IV Diagnosis: Atrial fibrillation[ICD9: 427.31] Diagnosis: Anticoagulant long-term use[ICD9: V58.61] Diagnosis: ESSENTIAL HYPERTENSION[SNOMED: 05384732] Karma Bahena MD, [facility] CPT-4: 49491 08/08/2012 ([id number]) 22769 EST. PATIENT, LEVEL IV Diagnosis: ABDOM PAIN NOS SITE[ICD9: 789.00] Diagnosis: Constipation - functional[ICD9: 564.09] Diagnosis: EDEMA[ICD9: 782.3] Diagnosis: ATRIAL FIBRILLATION[ICD9: 427.31] Karma Bahena MD [facility] CPT- 4: 94401 07/11/2012 ([id number]) 26013 EST. PATIENT, LEVEL III Diagnosis: Cystocele[ICD9: 618.01] Diagnosis: Rectocele[ICD9: 618.04] [facility] CPT-4: 45460 05/08/2012 ([id number]) 85048 EST. 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 PATIENT, LEVEL IV Diagnosis: ATRIAL FIBRILLATION[ICD9: 427.31] Diagnosis: URGE INCONTINENCE[ICD9: 788.31] Diagnosis: MALAISE AND FATIGUE[ICD9: 780.79] Diagnosis: Dyspnea[ICD9: 786.09] [facility] CPT-4: 41197 02/20/2012 12714 EST. PATIENT, LEVEL IV Diagnosis: Hematuria[ICD9: 599.70] Diagnosis: Vaginal yeast infection[ICD9: 112.1] Diagnosis: ATRIAL FIBRILLATION[ICD9: 427.31] [facility] CPT- 4: 85137 02/13/2012 ([id number]) 39197 EST. PATIENT, LEVEL IV Diagnosis: Atrial fibrillation[ICD9: 427.31] Diagnosis: Anticoagulation goal of INR 2 to 3[ICD9: V58.83] Diagnosis: Urinary incontinence, urge[ICD9: 788.31] Diagnosis: ESSENTIAL HYPERTENSION[SNOMED: 27004144] Karma Bahena MD [facility] CPT-4: 55742 02/01/2012 ([id number]) 48774 EST. PATIENT, LEVEL IV Diagnosis: Atrial fibrillation[ICD9: 427.31] Diagnosis: Anticoagulant long-term use[ICD9: V58.61] Diagnosis: ESSENTIAL HYPERTENSION[SNOMED: 52502331] Karma Bahena MD [facility] CPT-4: 70974 2012 56718 EST. PATIENT, LEVEL IV Diagnosis: UTI[ICD9: 599.0] Diagnosis: ESSENTIAL HYPERTENSION[SNOMED: 62774502] Diagnosis: MALAISE AND FATIGUE[ICD9: 780.79] Diagnosis: Esophageal reflux[ICD9: 530.81] Karma Bahena MD, [facility] CPT-4: 05605 12/01/2011 ([id number]) 27671 EST. PATIENT, LEVEL IV Diagnosis: UTI (urinary tract infection)[ICD9: 599.0] Diagnosis: ESSENTIAL HYPERTENSION[SNOMED: 39123641] Diagnosis: URGE INCONTINENCE[ICD9: 788.31] Karma Bahena MD [facility] CPT-4: 80446 11/23/2011 ([id number]) 48005 EST. PATIENT, LEVEL IV Diagnosis: ESSENTIAL HYPERTENSION[SNOMED: 35529590] Diagnosis: IMPACTED CERUMEN[ICD9: 380.4] Diagnosis: MALAISE AND FATIGUE[ICD9: 780.79] Diagnosis: EDEMA[ICD9: 782.3] Karma Bahena MD, [facility] CPT-4: 19093 10/03/2011 14500 EST. PATIENT, LEVEL IV Diagnosis: ESSENTIAL HYPERTENSION[SNOMED: 96982175] Diagnosis: Generalized osteoarthritis[ICD9: 715.09] Diagnosis: OSTEOPOROSIS[ICD9: 733.00] Karma Bahena MD, [facility] CPT-4: 12063 08/08/2011 44032 EST. PATIENT, LEVEL IV Diagnosis: Muscle cramp[ICD9: 729.82] Diagnosis: Torticollis[ICD9: 723.5] Diagnosis: Rash[ICD9: 782.1] Karma Bahena MD, [facility] CPT-4: 20579 05/09/2011 90729 EST. PATIENT, LEVEL IV Diagnosis: Leg cramps, sleep related[ICD9: 327.52] Diagnosis: Underweight[ICD9: 783.22] Karma Bahena MD, [facility] CPT-4: 98428 03/29/2011 61237 EST. PATIENT, LEVEL IV Diagnosis: UTI[ICD9: 599.0] Diagnosis: Urge incontinence[ICD9: 788.31] Diagnosis: Loss of weight[ICD9: 783.21] Diagnosis: Palpitations[ICD9: 785.1] Diagnosis: Peripheral neuropathy, idiopathic[ICD9: 356.9] Karma Bahena MD, [facility] CPT-4: 27342 03/15/2011 Plan of Care Planned Activity Notes Codes Status Date Appointment: Laura Colin WPtel: [address] [place] [address] (30 min) Complex 12/13/2018 Visit Plan: Afib -hyponatremia -generalized weakness -Dr Bahena in to evaluate patient -plan to admit for further evaluation and treatment - will repeat labs -start IVF-monitor with telemetry and consult Dr Rock Depression -restart lexapro 5mg daily 12/10/2018 Appointment: Laura Colin WPtel: [address] [place], [place] [phone] (30 min) Complex 12/10/2018 Patient Education: Patient [...] to monitor 12/06/2018 Appointment: Laura Colin WPtel: [phone] [phone] (15 min) Moderate 12/06/2018 Patient Education: Patient Medication Summary Completed 12/06/2018 Visit Plan: Pharyngitis-Discussed natural and expected course of this diagnosis and need to alert me if symptoms do not follow expected course, or if any worse. Recommended salt water gargles as needed for pain. Ty lenol/motrin as needed for fever/discomfort. 11/30/2018 Appointment: Laura Colin WPtel: [phone] [phone] [place] (30 min) Complex 11/30/2018 Patient Education: Patient Medication Summary Completed 11/30/2018 Appointment: Karma Bhaena WPtel: [phone] [facility] (15 min) Moderate 11/14/2018 Visit Plan: Hypothyroidism [...] imvexxy 10/31/2018 Appointment: Karma Bahena WPtel: [phone] [facility] [place] (15 min) Moderate 10/31/2018 Patient Education: Patient Medication Summary Completed 10/31/2018 Visit Plan: Hand pain with arthritis - Raynaud syndrome - discussed with pt - RX for Voltaren gel sent to the pharmacy. continue with amlodipine. 10/09/2018 Appointment: Karma Bahena WPtel: [phone] [facility] (15 min) Moderate 10/09/2018 Patient Education: Patient Medication Summary Completed 10/09/2018 Appointment: Karma Bahena WPtel: [facility]4 [facility] (15 min) Moderate 10/01/2018 Visit Plan: [...] or concerns. 09/12/2018 Appointment: Katharine Dai WPtel: [facility]3 [facility] (15 min) Moderate 09/12/2018 Patient Education: Patient Medication Summary Completed 09/12/2018 Appointment: Karma Bahena WPtel: [facility]3 [facility] (15 min) Moderate 08/16/2018 Visit Plan: [...] removed. 08/14/2018 Appointment: Karma Bahena WPtel: [phone] [facility] (15 min) Moderate 08/14/2018 Patient Education: [...] removed. 07/26/2018 Appointment: [phone] [place] (15 min) Moderate 07/26/2018 [...] improving. 06/04/2018 Appointment: Karma Bahena WPtel: [phone] [facility] (15 min) Moderate 06/04/2018 Patient Education: Patient Medication Summary Completed 06/04/2018 Appointment: Karma Bahena WPtel: [phone] [facility] (15 min) Moderate 03/14/2018 Visit Plan: [...] months or q 6 m [facility] based on previous levels of control. 01/31/2018 Appointment: Katharine Dai WPtel: [phone] [facility] [facility] - Annual Wellness Visit 01/31/2018 Patient Education: [...] spray. 12/14/2017 Appointment: Karma Bahena WPtel: [phone] [facility] (15 min) Moderate 12/14/2017 Patient Education: [...] allergy spray. 12/07/2017 Appointment: Kath[facility] Dai [facility]Ptel[facility] (15 min) Moderate 12/07/2017 Patient Education: Patient [...] control. 11/14/2017 Appointment: Karma Bahena WPtel: [phone] [facility] (15 min) Moderate 11/14/2017 Patient Education: Patient [...] today. 03/27/2017 Appointment: [facility]el[phone] (15 min) Moderate 03/27/2017 Patient [...] care surrogate. 01/23/2017 Appointment: Katharine Dai WPtel: [facility]9 [facility] [facility] - Annual Wellness Visit 01/23/2017 Patient Education: [...] becoming uncontrolled. 01/19/2017 Appointment: Karma Bahena WPtel: [facility]4 [facility] (15 min) Moderate 01/19/2017 Patient Education: Patient Medication Summary Completed 01/19/2017 Care Plan: Referral Order SNOMED-CT : [id number] Pending 01/19/2017 Appointment: Karma Bahena WPtel: [facility]5 [facility] (15 min) Moderate 01/04/2017 Appointment: Karma Bahena WPtel: [facility] (15 min) Moderate 12/28/2016 Visit Plan: LAZ-bgrcz-ycw zpack-call if symptoms do not resolve or if any worse. Patient verbalized understanding of plan. 11/29/2016 Appointment: Laura Colin WPtel: [facility]3 [phone] (15 min) Moderate [...] patient's pharmacy. 11/23/2016 Appointment: Katharine Dai WPtel: [address] [place], [place] [phone] (15 min) Moderate 11/23/2016 Patient Education: Patient Medication Summary Completed 11/23/2016 Visit Plan: Pharyngitis-Discussed natural and expected course of this diagnosis and need to alert me if symptoms do not follow expected course, or if any worse. Recommended salt water gargles as needed for pain. Ty lenol/motrin as needed for fever/discomfort. 11/21/2016 Appointment: Laura Colin WPtel: [address] [place], [place] [phone] (15 min) Moderate 11/21/2016 Patient Education: Patient [...] monitor symptoms. 11/08/2016 Appointment: Karma Bahena WPtel: [facility]2 [facility] (10 min) Simple 11/08/2016 Patient Education: [...] bactroban, etc. 11/02/2016 Appointment: Karma Bahena WPtel: [phone] [facility] (15 min) Moderate 11/02/2016 Appointment: Nurse Visit 11/02/2016 Patient Education: Patient Medication Summary Completed 11/02/2016 Appointment: Nurse Visit 10/31/2016 Visit Plan: Laceration-right forearm- Pt was instructed to keep the wound clean, cleanse with sterile saline, use bactroban ointment, call if redness, pustular drainage, or any other acute concerns. Follow up Monday for dressing changes. 10/27/2016 Appointment: Laura Colin WPtel: [phone] [phone] [place] (30 min) [...] in symptoms. 08/31/2016 Appointment: Karma Bahena WPtel: [facility]0 [facility] (15 min) Moderate 08/31/2016 Patient Education: Patient [...] your swelling. 07/27/2016 Appointment: Karma Bahena WPtel: [facility] (15 min) Moderate 07/27/2016 Patient [...] of lasix 06/23/2016 Appointment: Karma Bahena WPtel: [facility]6 [facility] (15 min) Moderate 06/23/2016 Patient Education: Patient Medication Summary Completed 06/23/2016 Patient Education: Hypertension Completed 06/23/2016 Visit Plan: Edema - with Dyspnea - RX for laxis and compression socks - pt to call if not improving. 06/09/2016 Appointment: Karma Bahena WPtel: [facility]2 [facility] (15 min) Moderate 06/09/2016 Patient Education: Patient Medication Summary Completed 06/09/2016 Visit Plan: Abdominal pain and rectal itching - recommended pt to use betamethasone on vaginal/rectal region, monitor symptoms call if not improving. Continue with beano and simethicone 05/25/2016 Appointment: Karma Bahena WPtel: [facility] (15 min) Moderate 05/25/2016 Patient Education: Patient Medication Summary Completed 05/25/2016 Care Plan: SCREENINGMAMMOGRAPHYDIGITAL LOINC : 65016-7 Pending 05/20/2016 Visit Plan: Abdominal distension - use simethicone four times daily - after meals - if it does not help - in the next two weeks - call the office and we will do a ct scan of the abdomen and pelvis 05/17/2016 Appointment: Karma Bahena WPtel: [phone] [facility] (15 min) Moderate 05/17/2016 Patient [...] steroid ointment 03/24/2016 Appointment: Karma Bahena WPtel: [facility] (30 min) Complex 03/24/2016 Patient Education: Patient [...] allergy spray. 12/21/2015 Appointment: Laura Colin WPtel: [phone] (30 min) Complex 12/21/2015 Patient Education: Patient [...] uncontrolled. 11/03/2015 Appointment: Kar[facility] Bahen[facility] WPtel[facility] [phone] [facility] (15 min) Moderate 11/03/2015 Patient Education: [...] had left kidney and ureter removed in [place]-doing well 09/01/2015 Appointment: (30 min) Complex 09/01/2015 Patient Education: Patient Medication Summary Completed 09/01/2015 Patient Education: Hypertension Completed 09/01/2015 Appointment: Karma Bahena WPtel: [phone] [facility] [place] (15 min) Moderate 07/13/2015 Visit Plan: Hematuria/Urethritis [...] 05/13/2015 Care Plan: Referral Order SNOMED-CT : [id number] Ordered 05/08/2015 Visit Plan: Atrial Fibrillation - [...] Dr. Collins. 05/07/2015 Appointment: Karma Bhaena WPtel: [phone] [facility] (15 min) Moderate 05/07/2015 Patient [...] becoming uncontrolled. 10/30/2014 Appointment: Karma Bahena WPtel: [facility]5 [facility] Follow up 10/30/2014 Patient Education: Patient Medication Summary Completed 10/30/2014 Appointment: Karma Bahena WPtel: [address] [place], [place] [phone] Follow up 07/22/2014 Visit Plan: Atrial Fibrillation [...] in hospital. 07/11/2014 Appointment: Karma Bahena WPtel: [facility]5 [facility] Sick 07/11/2014 Patient Education: Patient Medication Summary Completed 07/11/2014 Appointment: Karma Bahena WPtel: [facility]5 [facility] Follow up 07/07/2014 Visit Plan: Urinary incontinence and recurrent UTI's - doctor will refer to Dr. Joel Collins - for nonsurgical intervention for potential electrical stimulation/training of pelvic floor muscles - for strengthening - can start on the treatment when you get back from [place] - will also ask him about doing a cystoscopy to look into bladder to see if there is any bladder irritation. keep using the Premarin - use about 25Cent size of cream onto finger to apply to urethra and do this three times weekly. 05/20/2014 Appointment: Karma Bahena WPtel: [address] [place], [place] [phone] Follow up 05/20/2014 Patient Education: Patient Medication Summary Completed 05/20/2014 Appointment: Karma Bahena WPtel: [address] [place], [place] [phone] Lab Draw 05/14/2014 Patient Education: Patient Medication [...] recommended vesicare. 04/29/2014 Appointment: Karma Bahena WPtel: [phone] [facility] Follow up 04/29/2014 Patient Education: Patient [...] allergy spray. 03/20/2014 Appointment: Karma Bahena WPtel: [phone] [facility] Sick 03/20/2014 Patient Education: Patient Medication [...] uncontrolled. 03/05/2014 Appointment: Karma Bahena WPtel: [phone] [facility] Follow up 03/05/2014 Patient Education: Patient [...] report. 01/29/2014 Appointment: Karma Bahena WPtel: [phone] [facility] Follow up 01/29/2014 Patient Education: [...] exposure,and dyspnea on exertion - will ask [place] Patient do an overnight oxygen study on [place] as she has cardiac history, weight loss, and nocturnal hypoxemia may be a part of her weight loss and fatigue. 12/25/2013 Appointment: Karma Bahena WPtel: [address] [place], [place] [phone] Follow up 12/25/2013 Patient Education: Patient Medication [...] twice daily. 11/27/2013 Appointment: Karma Bahena WPtel: [address] [place], [place] [phone] Follow up 11/27/2013 Patient Education: Patient Medication [...] heart rate. Osteoarthritis - send pt to [facility] physical therapy for gereral osteoarhtritis program for strengthening and pain reduction. Hypertension - well controlled - continue with current medications, continue with no added salt diet. Pt has been encouraged to exercise daily. The pt has been advised to call the office if there are any acute concerns about change in blood pressure readings at home. 09/12/2013 Appointment: Karma Bahena WPtel: [facility]5 [facility] Follow up 09/12/2013 Patient Education: Patient Medication Summary Completed 09/12/2013 Patient Education: Hypertension Completed 09/12/2013 Appointment: Karma Bahena WPtel: [phone] [facility] Follow up 08/21/2013 Visit Plan: Hypertension - [...] PT/INR 08/15/2013 Appointment: Karma Bahena WPtel: [phone] [facility] Follow up 08/15/2013 Patient Education: Patient Medication [...] of urethra. 08/01/2013 Appointment: Karma Bahena WPtel: [phone] [facility] Follow up 08/01/2013 Patient Education: Patient Medication Summary Completed 08/01/2013 Patient Education: Hypertension Completed 08/01/2013 Appointment: [facility] Colin [facility]Ptel: [phone] [place] Lab Draw 07/29/2013 Patient Education: Patient Medication Summary Completed 07/29/2013 Visit Plan: Osteoporosis-prolia on june 25-patient to let Dr Hansen know 07/01/2013 Appointment: Laura Colin WPtel: [facility]5 [facility] [place] Follow up 07/01/2013 Appointment: Karma Bahena WPtel: [facility] [place] Follow up 07/01/2013 Patient Education: Patient Medication Summary Completed 07/01/2013 Appointment: Karma Bahena WPtel: [facility]5 [facility] [place] Follow up 06/25/2013 Appointment: Karma Bahena WPtel: [facility] [place] Lab Draw 06/20/2013 Patient Education: Patient Medication Summary Completed 06/20/2013 Appointment: Karma Bahena WPtel: [facility]5 [facility] [place] Lab Draw 06/19/2013 Visit Plan: [...] at home. 05/29/2013 Appointment: Karma Bahena WPtel: [facility]5 [facility] [place] Follow up 05/29/2013 Patient Education: Patient [...] at home. 05/15/2013 Appointment: Karma Bahena WPtel: [phone] [facility] Other 05/15/2013 Patient Education: Patient Medication [...] shot today. 04/23/2013 Appointment: Karma Bahena WPtel: [address] [place], [place] [phone] Other 04/23/2013 Patient Education: Patient Medication Summary [...] this regimen. 03/21/2013 Appointment: Laura Colin WPtel: [facility]8 [phone] Follow up 03/21/2013 [...] becoming uncontrolled. 01/16/2013 Appointment: Karma Bahena WPtel: [facility]5 [facility] Follow up 01/16/2013 Patient Education: Patient Medication Summary Completed 01/16/2013 Patient Education: Hypertension Completed 01/16/2013 Visit Plan: Wound Instructions - Pt was instruced to keep the wound clean, wash with antibacterial soap, use triple antibiotic ointment, call if redness, pustular drainage, or any other acute conerns. 12/19/2012 Appointment: Karma Bahena WPtel: [facility]5 [facility] Other 12/19/2012 Patient Education: Patient Medication Summary Completed 12/19/2012 Patient Education: Patient Medication Summary Completed 12/17/2012 Visit Plan: Cellulitis - improved- monitor symptoms - need to check handon Monday morning. 12/14/2012 Appointment: Karma Bahena WPtel: [facility]5 [facility] Follow up 12/14/2012 Patient Education: Patient Medication Summary Completed 12/14/2012 Visit Plan: Cellulitis - improved- monitor symptoms - need to check handon Monday morning. 12/12/2012 Appointment: Karma Bahena WPtel: [facility]3 [facility] Work-in 12/12/2012 Patient Education: Patient Medication Summary [...] warmth, discharge. 12/10/2012 Appointment: Karma Bahena WPtel: [facility]0 [facility] Other 12/10/2012 Patient Education: Patient Medication Summary [...] becoming uncontrolled. 10/30/2012 Appointment: Karma Bahena WPtel: [facility]1 [facility] Follow up 10/30/2012 Patient Education: Patient Medication Summary Completed 10/30/2012 Appointment: Laura Colin WPtel: [phone] Lab Draw 09/13/2012 [...] and 3.5. 08/08/2012 Appointment: Karma Bahena WPtel: [facility]7 [facility] Other 08/08/2012 Patient Education: Patient Medication [...] regimen. 07/11/2012 Appointment: Kar[facility] Bahena WPtel: [phone] swelling, leg edema Other 07/11/2012 [...] vaginally. 05/08/2012 Appointment: Kar[facility] Bahena WPtel: [phone] [facility] Follow up 05/08/2012 Patient Education: [...] hospitalization. 04/18/2012 Appointment: Karma Bahena WPtel: [phone] [facility] [place] Follow up 04/18/2012 Patient Education: Patient Medication Summary Completed 04/18/2012 Patient Education: High Blood Pressure: Essential Hypertension Completed 04/18/2012 Appointment: Karma Bahena WPtel: [phone] [facility] [place] Follow up 04/09/2012 Appointment: Karma Bahena WPtel: [phone] [facility] [place] Lab Draw 04/04/2012 Appointment: [facility] Colin [facility]Ptel: [phone] [place] Lab Draw 03/19/2012 Visit [...] Hypertension Completed 03/13/2012 Appointment: Karma Bahena WPtel: [facility]7 [facility] [place] Lab Draw 03/08/2012 Patient Education: Patient [...] cardiac rehab. 02/20/2012 Appointment: Karma Bahena WPtel: [facility]2 [facility] [place] Other 02/20/2012 Patient Education: Patient [...] becoming uncontrolled. 02/13/2012 Appointment: Laura Colin WPtel: [phone] [facility] [place] Other 02/13/2012 Patient Education: Patient Medication Summary Completed 02/13/2012 Appointment: Karma Bahena WPtel: [phone] [id number] [facility] 02/07/2012 Visit [...] medication. 02/01/2012 Appointment: [phone] [facility] Other 02/01/2012 Patient Education: Patient Medication Summary Completed 02/01/2012 Patient Education: High Blood Pressure: Essential Hypertension Completed 02/01/2012 Appointment: [facility] Bahen[facility]el[id number] [place] [facility] 01/17/2012 Visit [...] home. 2012 Appointment: Karma Bahena WPtel: [phone] [facility] Other 2012 Patient Education: Patient Medication Summary Completed 2012 Patient Education: High Blood Pressure: Essential Hypertension Completed 2012 Appointment: Karma Bahena WPtel: [phone] [facility] Follow up 12/20/2011 Visit Plan: Dicyclomine up [...] room. 12/01/2011 Appointment: Karma Bahena WPtel: [phone] [facility] Other 12/01/2011 Patient Education: Patient Medication [...] infection resolves. 11/23/2011 Appointment: Laura Colin WPtel: [address] [place], [place] [id number] [place] [address] Other 11/23/2011 Patient Education: Patient Medication Summary Completed 11/23/2011 Patient Education: High Blood Pressure: Essential Hypertension Completed 11/23/2011 Visit Plan: Cerumen Impaction - The impacted cerumen was removed with the use of either ear currette alone or in combination with ear curette and water pick. The patient tolerated the procedure without incident and had improvement in hearing 10/17/2011 Appointment: Laura Colin WPtel: [facility]9 [phone] Other 10/17/2011 Patient [...] by irrigation. 10/03/2011 Appointment: Karma Bahena WPtel: [facility]3 [facility] [place] Other 10/03/2011 Patient Education: Patient Medication [...] is evidence. 08/08/2011 Appointment: Karma Bahena WPtel: [facility] [address] Other 08/08/2011 Patient Education: Patient Medication Summary Completed 08/08/2011 Patient Education: High Blood Pressure: Essential Hypertension Completed 08/08/2011 Visit Plan: Muscle cramps - the cramps are a little better, continue with the Diltiazem and it is okay to use the over the counter supplement with quinine - but use it sparingly. For the rash, use the prescripti on the shredder tender peat prescribed for the itching , call if the rash is not improved. Torticollis - continue with physical therapy, call if the neck muscles do not continue to show improvement. 05/09/2011 Appointment: Karma Bahena WPtel: [address] [place] [address] Other 05/09/2011 Patient Education: Patient Medication Summary [...] water aerobics. 03/29/2011 Appointment: Karma Bahena WPtel: [facility] [address] Other 03/29/2011 Patient Education: Patient Medication Summary Completed 03/29/2011 Appointment: Kar[facility] Bahena [facility]Ptel[phone] [facility] [facility] 03/17/2011 Visit Plan: UTI - UA negative. Urge incontinence- restart on the vesicare- at 5 mg. Continue to avoid caffinated foods/fluids. Peripheral Neuropathy - per epic kaleidoscope analyst report - Continue with the metanex. Loss of weight - WEIGHT CHECK IN 2 WKS. Palpitations- likely stress induced. If the symptoms worsen, call the office. 03/15/2011 Appointment: Karma Bahena WPtel: [phone] [facility] Follow up 03/15/2011 Patient Education: Patient [...] avoid caffinated foods/fluids. Peripheral Neuropathy - per epic kaleidoscope analyst report - Continue with the metanex. Loss [...] therefore, would not change the medication. . WFD-ojsbq-nom zpack-call if symptoms do not resolve or [...] For the rash, use the prescription the shredder tender peat prescribed for the itching , call if [...] heart rate. Osteoarthritis - send pt to [facility] physical therapy for gereral osteoarhtritis program for [...] blood pressure readings at home. [place] and [place]- recommended cardiac rehab. rita tobin hearing aide [...] had left kidney and ureter removed in [place]- doing well . Hematuria - check UA. [...] the treatment when you get back from [place] - will also ask him about doing [...] exposure,and dyspnea on exertion - will ask [place] Patient do an overnight oxygen study on [place] as she has cardiac history, weight loss, [...] Dr Rock Depression -restart lexapro 5mg daily . Medicare Exam - today we discussed [...]
[2019-01-07 08:29] LABS: FREE T4 (FREE THYROXINE) 1.48 NG/DL (0.70-1.48)
--- NOTE | 2019-01-07 08:34 | NUR ---
radiology here for portable chest at this time.
--- NOTE | 2019-01-07 08:39 | ED Respiratory ---
General Chief Complaint: Respiratory Problems Stated Complaint: SOA Nursing Triage Note: PT PRESENTS TO ED VIA EMS WITH COMPLAINTS OF SOA. ARRIVED BY EMS FROM [facility] TO ED ROOM 7. ARRIVED ON CPAP. SON REPORTS PT DISCHARGED FROM HOSPITAL 10 DAYS AGO FOR AFIB, PNEUMONIA. Source: patient, family, EMS, shelter records, old records Exam Limitations: no limitations History of Present Illness Date Seen by Provider: Jan 07, 2019 Time Seen by Provider: 07:29 Initial Comments This 84-year-old female resident of [facility] in [place] presents to the emergency room via EMS in respiratory distress. She had recently been admitted to the hospital from December 10 through December 27 for a variety of issues including pleural effusion, pulmonary hypertension, atrial fibrillation, hyponatremia, among other issues. EMS reports she was satting in the 80s on 2 L nasal cannula but pulse ox was very difficult to obtain due Raynaud's syndrome. Patient received Solu-Medrol 125 mg IV by EMS. They administered BiPAP therapy along with a DuoNeb treatment. She is extremely tight and wheezy upon arrival. She is more alert with these measures according to EMS. She is afebrile. Her religious studies professor is Dr. Rock, primary care provider is Dr. 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 Allergies and Home Medications Allergies Coded Allergies: Bacitracin Zinc (Verified Allergy, Unknown, 10/06/15) bacitracin (Verified Allergy, Unknown, 10/06/15) benzalkonium chloride (Verified Allergy, Unknown, 10/06/15) gramicidin D (Verified Allergy, Unknown, 10/06/15) hydrocortisone (Verified Allergy, Unknown, 10/06/15) lidocaine (Verified Allergy, Unknown, 10/06/15) meclizine (Verified Allergy, Unknown, 10/06/15) neomycin (Verified Allergy, Unknown, 10/06/15) neomycin sulfate (Verified Allergy, Unknown, 10/06/15) polymyxin B (Verified Allergy, Unknown, 10/06/15) polymyxin B sulfate (Verified Allergy, Unknown, 10/06/15) Home Medications Acetaminophen 325 Mg Tablet, 325-650 MG PO Q6H PRN for PAIN-MILD, (Reported) Albuterol Sulfate 90 Mcg Aer.pow.ba, 2 PUFF INH Q6H PRN for SHORTNESS OF BREATH, (Reported) Melhx-M-Mzdgripgfpxnk 150 Unit Tablet, 2 TAB PO AC, (Reported) Apixaban 2.5 Mg Tablet, 2.5 MG PO BID, (Reported) Brinzolamide/Brimonidine Tart 8 Ml Drops.susp, 1 DROP OS BID, (Reported) Calcium Carbonate/Vitamin D3 1 Each Tablet, 1 TAB PO BID, (Reported) Carboxymethyl/Glycerin/Poly80 10 Ml Drops, 2 DROP OU QID, (Reported) Cetirizine HCl 10 Mg Tablet, 10 MG PO HS, (Reported) Cyclobenzaprine HCl 5 Mg Tablet, 2.5 MG PO Q8H, (Reported) TAKES 1/2 (5MG) TABLET Diclofenac Sodium 100 Gm Gel..gram., 2 GM TOP QID PRN for JOINT PAIN, (Reported) APPLY TO SHOULDER AND HANDS Digoxin 125 Mcg Tablet, 125 MCG PO Q48H@1900, (Reported) HOLD FOR SBP <90 OR HR <60 Diltiazem HCl 60 Mg Cap.er.12h, 60 MG PO Q12H, (Reported) Docusate Sodium 100 Mg Capsule, 100 MG PO HS, (Reported) Duloxetine HCl 20 Mg Capsule.dr, 20 MG PO BID, (Reported) Furosemide 40 Mg Tablet, 40 MG PO DAILY, (Reported) Ipratropium/Albuterol Sulfate 3 Ml Ampul.neb, 3 ML NEB TID, (Reported) Ipratropium/Albuterol Sulfate 3 Ml Ampul.neb, 3 ML NEB Q3H PRN for SHORTNESS OF BREATH, (Reported) L.acidoph & Paracasei,B.lactis 1 Each Capsule, 1 CAP PO DAILY, (Reported) Levothyroxine Sodium 75 Mcg Tablet, 75 MCG PO DAILY, (Reported) Loperamide HCl 2 Mg Tablet, 2 MG PO UD PRN for DIARRHEA, (Reported) Lorazepam 0.5 Mg Tablet, 0.5 MG PO HS, (Reported) Lorazepam 0.5 Mg Tablet, 0.25 MG PO Q6H PRN for ANXIETY, (Reported) TAKES 1/2 (0.5MG) TABLET Loteprednol Etabonate 5 Gm Drops.gel, 1 DROP OD BID, (Reported) Magnesium Oxide 500 Mg Capsule, 500 MG PO DAILY, (Reported) Metoprolol Succinate 100 Mg Tab.er.24h, 100 MG PO DAILY, (Reported) Pantoprazole Sodium 40 Mg Tablet.dr, 40 MG PO HS, (Reported) Polyethylene Glycol 3350 17 Gm Powd.pack, 8.5 GM PO HS, (Reported) Potassium Chloride 20 Meq Tablet.er, 20 MEQ PO DAILY, (Reported) Saliva Stimulant Agents Comb.3 1 Each [place], 2 SPRAYS BC Q4H PRN for DRY MOUTH, (Reported) Simethicone 125 Mg Capsule, 125 MG PO TIDPC PRN for GAS, (Reported) Sodium Chloride 1 Gm Tab, 1 GM PO DAILY, (Reported) Sucralfate 1 Gm/10 Ml Oral.susp, 10 ML PO TID PRN for REFLUX, (Reported) Patient Home Medication List Home Medication List Reviewed: Yes Review of Systems Review of Systems Constitutional: no symptoms reported EENTM: no symptoms reported Respiratory: see HPI Cardiovascular: see HPI Gastrointestinal: no symptoms reported Genitourinary: no symptoms reported : No Musculoskeletal: no symptoms reported Skin: no symptoms reported Psychiatric/Neurological: No Symptoms Reported Hematologic/Lymphatic: No Symptoms Reported Immunological/Allergic: no symptoms reported Past Wrdnple-Qqwdmu-Cfgdqa Hx Past Med/Social Hx: Reviewed and Corrections made Patient Social History Alcohol Use: Denies Use Recreational Drug Use: No Smoking Status: Never a Smoker 2nd Hand Smoke Exposure: No Recent Foreign Travel: No Contact w/Someone Who Travel: No Recent Infectious Disease Expo: No Recent Hopitalizations: No (rotator cuff surgey, 2004, 2008 [place] glaucoma) Immunizations Up To Date Date of Pneumonia Vaccine: Jul 11, 2014 Date of Influenza Vaccine: Apr 09, 2015 Past Medical History Surgeries: Yes (BOWEL RESECTION, KIDNEY REMOVAL) Abdominal, Eye Surgery, Hysterectomy, Orthopedic Respiratory: Yes (pulmonary hypertension, pleural effusions. Chronic hypoxia on continuous nasal cannula) Pneumonia Currently Using CPAP: No Currently Using BIPAP: No Cardiac: Yes (MITRAL VALVE PROLAPSE) Atrial Fibrillation, Coronary Artery Disease, High Cholesterol, Hypertension, Valvular Heart Disease Neurological: Yes Neuropathy : No Reproductive Disorders: No Sexually Transmitted Disease: No Genitourinary: Yes (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) Gastrointestinal: Yes (35" OF COLON REMOVED) Gastroesophageal Reflux Musculoskeletal: Yes Osteoporosis Endocrine: Yes Hypothyroidsim Cancer: Yes Kidney Psychosocial: No Sleep Difficulties, Anxiety, Depression Integumentary: Yes (RAYNAUDS) Family Medical History Reviewed Nursing Family Hx Heart Disease Physical Exam Vital Signs - First Documented 01/07/19 01/07/19 07:34 07:52 Temp 95.8 Pulse 103 Resp 24 B/P (MAP) 122/80 (94) Pulse Ox 100 O2 Delivery NIV/Bilevel O2 Flow Rate 50.00 Capillary Refill : Greater Than 3 Seconds Height: 5'1.00" Weight: 100lbs. 9.0oz. 45.853402ni; 20.0 BMI Method:Stated General Appearance: WD/WN, no apparent distress HEENT: PERRL/EOMI, normal ENT inspection Neck: normal inspection Respiratory: decreased breath sounds, accessory muscle use, wheezing, other (patient is using accessory muscles for expiratory phase which is prolonged. Wheezing is very tight and restricting air movement. There are few crackles, more prominent on the left) Cardiovascular: no JVD, no murmur, irregularly irregular (rate controlled) Gastrointestinal: normal bowel sounds, non tender, soft Extremities: pedal edema, swelling (mild pitting edema equal bilaterally. 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, no motor/sensory deficits, alert Skin: warm/dry, other (delayed capillary refill and dusky fingers and toes from Raynaud's syndrome) Focused Exam Lactate Level 01/07/19 07:38: Lactic Acid Level 2.61*H Lactic Acid Level Laboratory Tests Test 01/07/19 07:38 Lactic Acid Level 2.61 MMOL/L (0.50-2.00) *H Procedures/Interventions Suture Size: 4-0 Progress/Results/Core Measures Suspected Sepsis Recent Fever Within 48 Hours: No Infection Criteria Present: Suspected New Infection New/Unexplained Altered Menta: No Sepsis Screen: Possible Severe Sepsis Risk SIRS Temperature:95.8 Pulse: 111 Respiratory Rate: 24 Laboratory Tests 01/07/19 07:38: White Blood Count 12.8H Blood Pressure 130 /70 Mean: 94 01/07/19 07:38: Lactic Acid Level 2.61*H Laboratory Tests 01/07/19 07:38: Creatinine 0.82, INR Comment 1.3, Platelet Count 384, Total Bilirubin 0.7 Results/Orders Lab Results Laboratory Tests Test 01/07/19 07:38 01/07/19 07:47 01/07/19 09:00 Range/Units White Blood Count 12.8 H 4.3-11.0 10^3/uL Red Blood Count 4.13 L 4.35-5.85 10^6/uL Hemoglobin 12.5 11.5-16.0 G/DL Hematocrit 37 35-52 % Mean Corpuscular Volume 91 80-99 FL Mean Corpuscular Hemoglobin 30 25-34 PG Mean Corpuscular Hemoglobin Concent 33 32-36 G/DL Red Cell Distribution Width 14.3 10.0-14.5 % Platelet Count 384 130-400 10^3/uL Mean Platelet Volume 9.6 7.4-10.4 FL Neutrophils (%) (Auto) 76 H 42-75 % Lymphocytes (%) (Auto) 8 L 12-44 % Monocytes (%) (Auto) 13 H 0-12 % Eosinophils (%) (Auto) 3 0-10 % Basophils (%) (Auto) 1 0-10 % Neutrophils # (Auto) 9.7 H 1.8-7.8 X 10^3 Lymphocytes # (Auto) 1.1 1.0-4.0 X 10^3 Monocytes # (Auto) 1.7 H 0.0-1.0 X 10^3 Eosinophils # (Auto) 0.3 0.0-0.3 10^3/uL Basophils # (Auto) 0.1 0.0-0.1 10^3/uL Prothrombin Time 16.6 H 12.2-14.7 SEC INR Comment 1.3 0.8-1.4 Activated Partial Thromboplast Time 31 24-35 SEC Sodium Level 127 L 135-145 MMOL/L Potassium Level 4.4 3.6-5.0 MMOL/L Chloride Level 95 L 98-107 MMOL/L Carbon Dioxide Level 21 21-32 MMOL/L Anion Gap 11 5-14 MMOL/L Blood Urea Nitrogen 14 7-18 MG/DL Creatinine 0.82 0.60-1.30 MG/DL Estimat Glomerular Filtration Rate > 60 BUN/Creatinine Ratio 17 Glucose Level 174 H 70-105 MG/DL Lactic Acid Level 2.61 *H 0.50-2.00 MMOL/L Calcium Level 8.2 L 8.5-10.1 MG/DL Corrected Calcium 9.2 8.5-10.1 MG/DL Magnesium Level 1.8 1.8-2.4 MG/DL Total Bilirubin 0.7 0.1-1.0 MG/DL Aspartate Amino Transf (AST/SGOT) 28 5-34 U/L Alanine Aminotransferase (ALT/SGPT) 27 0-55 U/L Alkaline Phosphatase 74 40-136 U/L Troponin I 0.045 H <0.028 NG/ML C-Reactive Protein High Sensitivity 6.00 H 0.00-0.50 MG/DL B-Type Natriuretic Peptide 205.4 H <100.0 PG/ML Total Protein 5.9 L 6.4-8.2 GM/DL Albumin 2.8 L 3.2-4.5 GM/DL Thyroid Stimulating Hormone (TSH) 4.73 0.35-4.94 UIU/ML Free Thyroxine 1.48 0.70-1.48 NG/DL Digoxin Level 0.54 L 0.80-2.00 NG/ML Smear Scan YES Blood Gas Puncture Site RT RADIAL Blood Gas Patient Temperature 95.8 Arterial Blood pH 7.41 7.37-7.43 Arterial Blood Partial Pressure CO2 37 35-45 MMHG Arterial Blood Partial Pressure O2 60 L 79-93 MMHG Arterial Blood HCO3 23 23-27 MMOL/L Arterial Blood Total CO2 24.5 21.0-31.0 MMOL/L Arterial Blood Oxygen Saturation 92 L 94-100 % Arterial Blood Base Excess -1.0 -2.5-2.5 MMOL/L Jaxon Test YES-POS Blood Gas Ventilator Setting NO Blood Gas Inspired Oxygen BIPAP Urine Color YELLOW Urine Clarity CLEAR Urine pH 6.5 5-9 Urine Specific [place] 1.010 L 1.016-1.022 Urine Protein NEGATIVE NEGATIVE Urine Glucose (UA) NEGATIVE NEGATIVE Urine Ketones NEGATIVE NEGATIVE Urine Nitrite NEGATIVE NEGATIVE Urine Bilirubin NEGATIVE NEGATIVE Urine Urobilinogen 4 H NORMAL MG/DL Urine Leukocyte Esterase NEGATIVE NEGATIVE Urine RBC (Auto) NEGATIVE NEGATIVE Urine RBC RARE /HPF Urine WBC NONE /HPF Urine Crystals NONE /LPF Urine Bacteria NEGATIVE /HPF Urine Casts NONE /LPF Urine Mucus NEGATIVE /LPF Urine Culture Indicated NO My Orders Orders - YUNIER AHMADI MD Arterial Blood Gas (01/07/19 07:42) BNP (01/07/19 07:42) Cbc With Automated Diff (01/07/19 07:42) Comprehensive Metabolic Panel (01/07/19 07:42) Hs C Reactive Protein (01/07/19 07:42) Digoxin (01/07/19 07:42) Magnesium (01/07/19 07:42) Troponin I (01/07/19 07:42) Blood Culture (01/07/19 07:42) Sputum Culture (01/07/19 07:42) Urinalysis (01/07/19 07:42) Urine Culture (01/07/19 07:42) Protime With Inr (01/07/19 07:42) Partial Thromboplastin Time (01/07/19 07:42) Chest 1 View, Ap/Pa Only (01/07/19 07:42) Ed Iv/Invasive Line Start (01/07/19 07:42) Vital Signs Adult Sepsis Patie Q15M (01/07/19 07:42) O2 (01/07/19 07:42) Remove Rings In Anticipation O (01/07/19 07:42) Lactic Acid Analyzer (01/07/19 07:42) Free T4 (Free Thyroxine) (01/07/19 07:42) Thyroid Stimulating Hormone (01/07/19 07:42) Bipap (Bilevel) Set Up (01/07/19 07:42) Ekg Tracing (01/07/19 07:45) Monitor-Rhythm Ecg Trace Only (01/07/19 07:45) Albuterol Pre-Mix Nebs (Rt) (Proventil (01/07/19 07:46) Albuterol/Ipra Inhalation Soln (Duoneb I (01/07/19 08:00) Svn Small Volume Nebulizer (01/07/19 07:46) Svn Small Volume Nebulizer (01/07/19 07:46) Piperacillin/Tazobactam (Bulk) (Zosyn In (01/07/19 09:00) [place] Cath (01/07/19 08:53) Furosemide Injection (Lasix Injection) (01/07/19 09:15) Medications Given in ED Current Medications Medications Dose Ordered Sig/Soheila Route Start Time Stop Time Status Last Admin Dose Admin Albuterol/ Ipratropium 3 ml ONCE ONCE INH 01/07/19 08:00 01/07/19 08:01 DC 01/07/19 07:51 3 ML Furosemide 40 mg ONCE ONCE IVP 01/07/19 09:15 01/07/19 09:16 DC 01/07/19 09:10 40 MG Piperacillin Sod/ Tazobactam Sod 4.5 gm/Sodium Chloride 120 ml @ 240 mls/hr ONCE ONCE IV 01/07/19 09:00 01/07/19 09:29 DC 01/07/19 09:16 240 MLS/HR Vital Signs/I&O 01/07/19 01/07/19 07:34 07:52 Temp 95.8 Pulse 103 111 Resp 24 24 B/P (MAP) 122/80 (94) Pulse Ox 100 96 O2 Delivery NIV/Bilevel O2 Flow Rate 50.00 Capillary Refill : Greater Than 3 Seconds Blood Pressure Mean: 94 Progress Note #1: Time: 08:40 Progress Note Patient was seen and examined. Despite DuoNeb treatment and BiPAP by EMS, she is still very tight and wheezing. She is alert on arrival. An hour-long nebulizer treatment was administered along with continuous BiPAP therapy. She still has wheezing but feels much better and respirations are more relaxed. Chest x-ray is still pending. According to the shelter chart and the patient's son who is present here with her, she is to remain full code at this time. Progress Note #2: Time: 09:07 Progress Note Patient's chest x-ray was reviewed. Her effusions appear somewhat improved but infiltrates/edema. Her somewhat worse. I discussed the situation with Dr. Singh. Her primary pulmonary issue seems to be bronchospasm or COPD exacerbation. She has had major issues with fluid overload and we want to avoid giving additional fluids at this time as this will likely worsen her respiratory distress. Lasix 40 mg IV will be administered in the ER. We discussed antibiotic therapy. Pneumonia, although not suspected, cannot be completely ruled out at this time. Zosyn will be given for empiric therapy. Blood cultures, lactic acid, and urine cultures have been collected in the ER. Kalli ent is stable on BiPAP. I discussed the case with Dr. Carbone to is covering for Dr. Rock at this time. I also discussed the case with Dr. Bahena. She is agreeable to admission to the ICU with BiPAP and Lasix therapy. She states patient has a signed DO NOT RESUSCITATE form at her office that she will send to the hospital. I did discuss with the patient directly who is alert and oriented at this time. She is conflicted about CODE STATUS but would like to be a full code on her admission orders. She will discuss it further with Dr. Bahena. Progress Note #3: Time: 09:[address] Bahena has been to the ER to see the patient. She has discussed CODE STATUS with patient and her son. The previously signed DO NOT RESUSCITATE form was faxed to the ER from her office. There is agreement now to proceed with a DO NOT RESUSCITATE status. ECG Initial ECG Impression Date: Jan 07, 2019 Initial ECG Impression Time: 07:49 Initial ECG Rate: 113 Initial ECG Rhythm: A Fib/Flutter Initial ECG Impression: Atrial Fibrillation Comment Atrial fibrillation with mild tachycardia. No ST elevation or depression. Diagnostic Imaging Diagonstic Imaging: Xray Plain Films/CT/US/NM/MRI: chest Comments Chest x-ray viewed by me and report reviewed. See report below NAME: BYRON SCHMIDT [facility] REC#: [id number] PT STATUS: REG ER : [id number] PHYSICIAN: YUNIER AHMADI MD ADMIT DATE: 01/07/19/ER Signed Date of Exam: 01/07/19 CHEST 1 VIEW, AP/PA ONLY INDICATION: Shortness of breath. Portable chest at 8:37 AM FINDINGS: There are pulmonary infiltrates in both upper lungs. There is right pleural effusion. There is also some right apical pleural capping. There is a small left pleural effusion. IMPRESSION: Bilateral pleural effusions appear similar to prior study done on 12/24/2018. The upper lobe pulmonary infiltrates appear to have increased since the previous study. Dictated by: Dictated on workstation # [id number] Dict: 01/07/19 0845 Trans: 01/07/19900 Interpreted by: MOLLY CONTRERAS MD Electronically signed by: MOLLY CONTRERAS MD 01/07/19900 Departure Communication (Admissions) Time/Spoke to Admitting Phy: 08:57 Dr. Josef Carbone at 09:[address] Rock who is unavailable Dr. Singh at 0854 Impression Primary Impression: Acute and chronic respiratory failure Additional Impressions: Bronchospasm Hyponatremia Atrial fibrillation Qualified Codes: I48.91 - Unspecified atrial fibrillation CHF exacerbation Qualified Codes: I50.9 - Heart failure, unspecified Disposition: 09 ADMITTED INPATIENT Condition: Improved Admissions Decision to Admit Reason: Admit from ER (General) Decision to Admit/Date: Jan 07, 2019 Time/Decision to Admit Time: 07:30 Departure-Patient Inst. Referrals: JUNIOR BAHENA MD (PCP/Family) Primary Care Physician YUNIER AHMADI MD Jan 07, 2019 08:39
--- NOTE | 2019-01-07 08:48 | Diagnostic Imaging Report ---
INDICATION: Shortness of breath. Portable chest at 8:37 AM FINDINGS: There are pulmonary infiltrates in both upper lungs. There is right pleural effusion. There is also some right apical pleural capping. There is a small left pleural effusion. IMPRESSION: Bilateral pleural effusions appear similar to prior study done on 12/24/2018. The upper lobe pulmonary infiltrates appear to have increased since the previous study. Dictated by: Dictated on workstation # [id number]
[2019-01-07] MEDS ORDERED: PIPERACILLIN/TAZOBACTAM (BULK) 4.5 GM in NS (IVPB) 100 ML IV ONE (09:00)
[2019-01-07 09:09] LABS: BILIRUBIN,URINE NEGATIVE (NEGATIVE); CLARITY,URINE CLEAR; COLOR,URINE YELLOW; GLUCOSE, URINE (UA) NEGATIVE (NEGATIVE); KETONES,URINE NEGATIVE (NEGATIVE); LEUKOCYTE ESTERASE ,URINE NEGATIVE (NEGATIVE); NITRITE,URINE NEGATIVE (NEGATIVE); PH,URINE 6.5 (5-9); PROTEIN,URINE NEGATIVE (NEGATIVE); UROBILINOGEN,URINE 4 MG/DL (NORMAL)
[2019-01-07] MEDS ORDERED: CLD600T PO (09:10)
[2019-01-07] MEDS ORDERED: DIGO125T PO (09:10)
[2019-01-07] MEDS ORDERED: LORA0.5T PO ×2 (09:10)
[2019-01-07] MEDS ORDERED: DILT60CA PO (09:10)
[2019-01-07] MEDS ORDERED: IPRA3AMP31 NEB ×2 (09:10)
[2019-01-07] MEDS ORDERED: NF-NACL1GT PO (09:10)
[2019-01-07] MEDS ORDERED: MAGN500C15 PO (09:10)
[2019-01-07] MEDS ORDERED: POTA-51 PO (09:10)
[2019-01-07] MEDS ORDERED: DULO20CA18 PO (09:10)
[2019-01-07] MEDS ORDERED: METO-395 PO (09:10)
[2019-01-07] MEDS ORDERED: FURO40TA4 PO (09:10)
[2019-01-07] MEDS ORDERED: SALI45SP BC (09:10)
--- NOTE | 2019-01-07 09:11 | NUR ---
UPDATED MED REC WITH MEDICATION REVIEW REPORT FROM [facility] SENT UP BY THE ED.
[2019-01-07] MEDS ORDERED: FUROSEMIDE 40 MG/4 ML INJ (LASIX) IVP ONE (09:15)
[2019-01-07 09:19] LABS: BACTERIA,URINE NEGATIVE /HPF; RBC,URINE RARE /HPF
--- OUTSIDE RECORDS SUMMARY | 2019-01-07 09:22 | XMS REPORT | CCD ---
Author Author Laura Colin Organization Karma Bahena MD, [facility] Address [address] [place] [address] Phone Care Team Providers Care Editor Book Name Role Phone Karma Bahena PP Unavailable CCM Unavailable Summary Purpose Interface Exchange Insurance Providers Payer name Policy type / Coverage type Covered green party ID Effective Begin Date Effective End Date WPS Medicare Part B Medicare Part B [id number] 2018 Unknown AARP Medicare Part B [id number] 2018 Unknown Family history Sister Diagnosis Age [...] Unknown House 03/15/[address]: 654212963 Never smoker 03/15/2011 Has the patient ever used illegal drugs? Unknown Has never used illegal drugs 03/15/2011 Allergies, Adverse Reactions, Alerts Substance Reaction Codes Entered Date Inactivated Date Status BACTINE RxNorm: 292046 03/04/2011 No Inactive Date Active MICONAZOLE RxNorm: 6932 03/04/2011 No Inactive Date Active NEOSPORIN RxNorm: 041627 03/04/2011 No Inactive Date Active NEOMYCIN RxNorm: 7299 03/04/2011 No Inactive Date Active CORTISPORIN RxNorm: 21755 03/04/2011 No Inactive Date Active bactrim RxNorm: 034019 03/13/2012 No Inactive Date Active AUGMENTIN diarrhea RxNorm: 535208 2016 No Inactive Date Active METRONIDAZOLE Unknown [...] ICD-10: I10 Active 12/25/2013 Unknown 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) drug 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 ICD-9: V58.83 ICD-10: [...] 706.2 ICD-10: L72.0 Active 02/01/2016 Unknown Other long-term (current) drug therapy ICD-9: V58.69 ICD-10: Z79.899 [...] 401.9 ICD-10: I10 12/25/2013 Active 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) drug therapy ICD-9: V58.83 ICD-10: [...] 706.2 ICD-10: L72.0 02/01/2016 Active 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) drug therapy ICD-9: V58.69 ICD-10: [...] Fill Instructions Lexapro 5 mg tablet RxNorm: 008215 1 Tablet(s) PO QPM 12/10/2018 06/07/2019 Active Keflex 500 mg capsule RxNorm: 207887 1 Capsule(s) PO TID 12/07/2018 12/13/2018 Active digoxin 125 mcg tablet RxNorm: 113204 Tablet(s) every other day 12/06/2018 11/30/2019 Active Keflex 500 mg capsule RxNorm: 372700 1 Capsule(s) PO TID 11/30/2018 12/06/2018 Inactive pantoprazole 40 mg tablet,delayed release RxNorm: 302374 1 TABLET(S) PO DAILY 11/29/2018 11/23/2019 Active amlodipine 5 mg tablet RxNorm: 071332 Tablet(s) 1/2 TABLET(S) PO DAILY MAY TAKE AN EXTRA 1/2 PILL AT THE END OF THE DAY IF BLOOD PRESSURE IS ELEVATED OVER 140 11/29/2018 05/27/2019 Active cyclobenzaprine 5 mg tablet RxNorm: 146246 1/2 Tablet(s) PO TID TABLET(S) 1/2 TABLET(S) PO Q8 NEEDED MUSCLE SPASMS 10/31/2018 04/28/2019 Active Imvexxy Starter Pack 4 mcg vaginal insert, dose pack RxNorm: 2616120 1 dose VAG BIW 10/31/2018 01/28/2019 Active Voltaren 1 % topical gel RxNorm: 862681 2 Gram(s) TOP QID on left shoulder and bilateral hands 10/17/2018 05/14/2019 Active PA APPROVED UNTIL JUL 09 2019 [id number] amlodipine 5 mg tablet RxNorm: 426137 1/2 TABLET(S) PO DAILY MAY TAKE AN EXTRA 1/2 PILL AT THE END OF THE DAY IF BLOOD PRESSURE IS ELEVATED OVER 140 10/15/2018 11/28/2018 Inactive Patient requests 90 days supply Voltaren 1 % topical gel RxNorm: 862107 2 Gram(s) TOP QID on left shoulder and bilateral hands 10/09/2018 10/16/2018 Inactive levothyroxine 75 mcg tablet RxNorm: 181969 1 Tablet(s) PO daily 09/19/2018 01/16/2019 Active Keflex 500 mg capsule RxNorm: 083210 1 Capsule(s) PO TID 09/12/2018 09/18/2018 Inactive spironolactone 25 mg tablet RxNorm: 589885 1 Tablet(s) PO BID 08/14/2018 11/06/2019 Active see new directions and quantity cyclobenzaprine 5 mg tablet RxNorm: 774471 Tablet(s) TABLET(S) 1/2 TABLET(S) PO Q8 NEEDED MUSCLE SPASMS 08/14/2018 10/30/2018 Inactive Nitro-Bid 2 % transdermal ointment RxNorm: 270084 1 dime size amount TD BID to fingers and toes 08/14/2018 09/12/2018 Inactive cyclobenzaprine 5 mg tablet RxNorm: 780253 TABLET(S) 1/2 TABLET(S) PO Q8 NEEDED MUSCLE SPASMS 08/06/2018 08/13/2018 Inactive amlodipine 5 mg tablet RxNorm: 379013 1/2 Tablet(s) PO daily may take an extra 1/2 pill at the end of the day if blood pressure is elevated over 140 07/26/2018 10/14/2018 Inactive cefdinir 300 mg capsule RxNorm: 616946 1 Capsule(s) PO BID 06/20/2018 06/26/2018 Inactive cefdinir 300 mg capsule RxNorm: 663106 1 Capsule(s) PO BID 06/20/2018 06/19/2018 Inactive metoprolol succinate ER 50 mg tablet,extended release 24 hr RxNorm: 477704 1.5 Tablet(s) daily 06/15/2018 03/11/2019 Active sucralfate 100 mg/mL oral suspension RxNorm: 979707 2 Teaspoon(s) PO TID as needed with reflux symptoms 06/04/2018 No Stop Date Active Vesicare 10 mg tablet RxNorm: 258091 1 TABLET(S) PO EVERY OTHER DAY 05/14/2018 01/08/2019 Active levothyroxine 50 mcg tablet RxNorm: 954362 1 TABLET(S) PO DAILY 04/30/2018 09/18/2018 Inactive Patient requests 90 days supply spironolactone 25 mg tablet RxNorm: 985142 1 Tablet(s) PO daily 03/14/2018 08/13/2018 Inactive levothyroxine 50 mcg tablet RxNorm: 424995 1 Tablet(s) PO daily 02/01/2018 04/29/2018 Inactive Eliquis 2.5 mg tablet RxNorm: 9258241 1 Tablet(s) PO BID 01/31/2018 02/20/2018 Inactive levothyroxine 50 mcg tablet RxNorm: 613936 1 Tablet(s) PO daily 01/31/2018 01/31/2018 Inactive Eliquis 2.5 mg tablet RxNorm: 4196624 TAKE 1 TABLET BY MOUTH TWICE DAILY 01/23/2018 07/21/2018 Inactive metoprolol succinate ER 50 mg tablet,extended release 24 hr RxNorm: 770204 1 TABLET(S) PO DAILY 01/23/2018 01/30/2018 Inactive metoprolol succinate ER 50 mg tablet,extended release 24 hr RxNorm: 001595 1.5 Tablet(s) daily 01/22/2018 06/14/2018 Inactive lisinopril 20 mg tablet RxNorm: 887901 1/2 Tablet(s) daily 01/19/2018 01/21/2018 Inactive Patient requests 90 days supply Singulair 10 mg tablet RxNorm: 594313 TAKE 1 TABLET BY MOUTH AT BEDTIME 01/18/2018 04/17/2018 Inactive Patient requests 90 days supply Singulair 10 mg tablet RxNorm: 826031 Tablet(s) PO 01/17/2018 01/17/2018 Inactive digoxin 125 mcg tablet RxNorm: 777631 1 TABLET(S) PO DAILY 01/03/2018 12/05/2018 Inactive Symbicort 160 mcg-4.5 mcg/actuation HFA aerosol inhaler RxNorm: 9189761 2 Puff(s) INH BID 12/14/2017 04/12/2018 Inactive please dispense an aerochamber for patient as well as her symbicort cyclobenzaprine 5 mg tablet RxNorm: 804935 Tablet(s) 1/2 TABLET(S) PO Q8 NEEDED MUSCLE SPASMS 12/14/2017 08/05/2018 Inactive pantoprazole 40 mg tablet,delayed release RxNorm: 632419 1 Tablet(s) PO daily 12/14/2017 11/28/2018 Inactive ProAir RespiClick 90 mcg/actuation breath activated RxNorm: 3862505 1-2 INH QID as needed shortness of breath 12/14/2017 07/11/2018 Inactive cyclobenzaprine 5 mg tablet RxNorm: 196681 1/2 TABLET(S) PO Q8 NEEDED MUSCLE SPASMS 12/08/2017 12/13/2017 Inactive betamethasone dipropionate 0.05 % topical ointment RxNorm: 019153 1 Application TOP TID use topically on the rectal tissue three times daily x 1 week then as needed 11/13/2017 No Stop Date Active Premarin 0.625 mg/gram vaginal cream RxNorm: 965042 1/2 GRAM(S) VAG TIW 11/13/2017 10/30/2018 Inactive cyclobenzaprine 5 mg tablet RxNorm: 530261 1/2 TABLET(S) PO Q8 NEEDED MUSCLE SPASMS 10/17/2017 12/07/2017 Inactive Vesicare 10 mg tablet RxNorm: 286087 1 Tablet(s) PO every other day 10/17/2017 04/14/2018 Inactive lisinopril 20 mg tablet RxNorm: 036406 1 TABLET(S) PO DAILY 10/02/2017 01/18/2018 Inactive Patient requests 90 days supply levothyroxine 75 mcg tablet RxNorm: 468218 1 TABLET(S) PO DAILY 09/25/2017 01/30/2018 Inactive spironolactone 25 mg tablet RxNorm: 403238 1 TABLET(S) PO DAILY 08/16/2017 03/13/2018 Inactive cyclobenzaprine 5 mg tablet RxNorm: 160918 1/2 TABLET(S) PO Q8 NEEDED MUSCLE SPASMS 08/16/2017 10/16/2017 Inactive Eliquis 2.5 mg tablet RxNorm: 6383245 TAKE 1 TABLET BY MOUTH TWICE DAILY 07/26/2017 01/21/2018 Inactive cyclobenzaprine 5 mg tablet RxNorm: 162291 1/2 Tablet(s) PO Q8 as needed muscle spasms 06/19/2017 08/15/2017 Inactive lisinopril 20 mg tablet RxNorm: 303221 1 TABLET(S) PO DAILY 06/12/2017 10/01/2017 Inactive metoprolol succinate ER 50 mg tablet,extended release 24 hr RxNorm: 009419 1 TABLET(S) PO DAILY 04/07/2017 01/01/2018 Inactive spironolactone 25 mg tablet RxNorm: 147418 1 Tablet(s) PO daily 03/27/2017 03/13/2018 Inactive acyclovir 800 mg tablet RxNorm: 785969 1 Tablet(s) PO TID 03/21/2017 03/30/2017 Inactive acyclovir 800 mg tablet RxNorm: 431141 1 Tablet(s) PO TID 03/21/2017 03/20/2017 Inactive levothyroxine 75 mcg tablet RxNorm: 234119 1 Tablet(s) PO daily 03/16/2017 09/11/2017 Inactive spironolactone 25 mg tablet RxNorm: 504878 1 TABLET(S) PO DAILY 02/09/2017 03/26/2017 Inactive lisinopril 20 mg tablet RxNorm: 970040 1 TABLET(S) PO DAILY 01/02/2017 05/31/2017 Inactive Zithromax Z-Claudio 250 mg tablet RxNorm: 346782 1 Tablet(s) PO UD 11/29/2016 12/03/2016 Inactive ZPACK Keflex 500 mg capsule RxNorm: 544577 1 Capsule(s) PO TID 11/23/2016 12/02/2016 Inactive guaifenesin 400 mg tablet RxNorm: 761327 1 Tablet(s) PO Q6 as needed 11/23/2016 11/27/2016 Inactive omeprazole 40 mg capsule,delayed release RxNorm: 204786 1 Capsule(s) PO QPM 11/02/2016 12/13/2017 Inactive digoxin 125 mcg tablet RxNorm: 176375 1 TABLET(S) PO DAILY 10/27/2016 07/23/2017 Inactive cyclobenzaprine 5 mg tablet RxNorm: 917748 1/2 Tablet(s) PO Q8 PRN 10/25/2016 06/18/2017 Inactive prn muscle spasms Augmentin 500 mg-125 mg tablet RxNorm: 105776 1 Tablet(s) PO BID 10/24/2016 11/02/2016 Inactive Lasix 20 mg tablet RxNorm: 084849 Tablet(s) PRN one to two times a week if needed 07/27/2016 No Stop Date Active Patient requests 90 days supply spironolactone 25 mg tablet RxNorm: 389428 1 Tablet(s) PO daily 07/27/2016 02/08/2017 Inactive Diflucan 150 mg tablet RxNorm: 860311 1 Tablet(s) PO daily 07/27/2016 08/02/2016 Inactive lisinopril 20 mg tablet RxNorm: 367389 1 Tablet(s) PO daily 07/12/2016 01/01/2017 Inactive Lasix 20 mg tablet RxNorm: 175890 1 TABLET(S) PO EVERY OTHER DAY EVERY OTHER DAY 06/10/2016 07/26/2016 Inactive Patient requests 90 days supply potassium chloride ER 10 mEq capsule,extended release RxNorm: 855679 1 CAPSULE(S) PO EVERY OTHER DAY 06/10/2016 07/26/2016 Inactive Patient requests 90 days supply potassium chloride ER 10 mEq capsule,extended release RxNorm: 405037 1 Capsule(s) PO every other day 06/09/2016 06/09/2016 Inactive Lasix 20 mg tablet RxNorm: 831260 1 Tablet(s) PO every other day every other day 06/09/2016 06/09/2016 Inactive levothyroxine 88 mcg tablet RxNorm: 423561 1 Tablet(s) PO daily 05/11/2016 11/06/2016 Inactive Premarin 0.625 mg/gram vaginal cream RxNorm: 888842 1/2 Gram(s) VAG TIW 03/24/2016 03/18/2017 Inactive metoprolol succinate ER 50 mg tablet,extended release 24 hr RxNorm: 627708 1 Tablet(s) PO daily 03/24/2016 03/18/2017 Inactive pantoprazole 40 mg tablet,delayed release RxNorm: 852617 1 Tablet(s) PO daily 02/08/2016 11/01/2016 Inactive betamethasone dipropionate 0.05 % topical ointment RxNorm: 983434 1 Application TOP TID use topically on the rectal tissue three times daily x 1 week then as needed 02/02/2016 11/12/2017 Inactive pantoprazole 40 mg tablet,delayed release RxNorm: 903323 1 Tablet(s) PO daily 2016 02/07/2016 Inactive alprazolam 0.25 mg tablet RxNorm: 622411 1 Tablet(s) PO Q6 as needed 12/04/2015 No Stop Date Active Vesicare 10 mg tablet RxNorm: 653276 1 Tablet(s) PO every other day 11/03/2015 10/16/2017 Inactive alprazolam 0.25 mg tablet RxNorm: 790256 1 Tablet(s) PO Q6 as needed 11/03/2015 12/03/2015 Inactive Premarin 0.625 mg/gram vaginal cream RxNorm: 204929 1/2 Gram(s) VAG TIW 11/03/2015 03/23/2016 Inactive levothyroxine 88 mcg tablet RxNorm: 755030 1 Tablet(s) PO daily 11/03/2015 05/10/2016 Inactive Diflucan 150 mg tablet RxNorm: 225601 1 Tablet(s) PO daily 10/19/2015 10/25/2015 Inactive cetirizine 10 mg chewable tablet RxNorm: 8887314 1 Tablet(s) PO daily 10/13/2015 11/11/2015 Inactive cetirizine 10 mg capsule RxNorm: 1912661 1 Capsule(s) PO daily 10/13/2015 11/11/2015 Inactive Vesicare 10 mg tablet RxNorm: 764832 1/2 TABLET(S) PO BID 09/21/2015 11/02/2015 Inactive betamethasone dipropionate 0.05 % topical ointment RxNorm: 442789 1 Application TOP TID use topically on the rectal tissue three times daily x 1 week then as needed 09/15/2015 02/01/2016 Inactive lisinopril 20 mg tablet RxNorm: 760033 1 Tablet(s) PO daily 09/01/2015 07/11/2016 Inactive digoxin 125 mcg tablet RxNorm: 215015 1 Tablet(s) PO daily 09/01/2015 08/25/2016 Inactive Augmentin 500 mg-125 mg tablet RxNorm: 968465 1 Tablet(s) PO TID 05/26/2015 06/04/2015 Inactive Pyridium 200 mg tablet RxNorm: 2893658 1 Tablet(s) PO TID 05/26/2015 05/27/2015 Inactive levothyroxine 88 mcg tablet RxNorm: 190080 1 Tablet(s) PO daily except 1/2 pill on monday and 05/07/2015 11/02/2015 Inactive digoxin 125 mcg tablet RxNorm: 817095 1 Tablet(s) PO daily 05/07/2015 08/31/2015 Inactive lisinopril 20 mg tablet RxNorm: 234984 1 TABLET(S) PO BID 04/13/2015 09/01/2015 Inactive Coumadin 1 mg tablet RxNorm: 325014 1 TABLET(S) PO DAILY 03/31/2015 08/31/2015 Inactive Coumadin 2 mg tablet RxNorm: 814608 4MG IN AM AND 1MG AT NIGHT TABLET(S) PO DAILY DIRECTED. 03/31/2015 08/31/2015 Inactive levothyroxine 88 mcg tablet RxNorm: 190414 1 Tablet(s) PO daily 03/23/2015 05/06/2015 Inactive alprazolam 0.25 mg tablet RxNorm: 056976 Tablet(s) PO 03/23/2015 04/06/2015 Inactive levothyroxine 88 mcg tablet RxNorm: 564005 1 Tablet(s) PO daily 01/28/2015 03/22/2015 Inactive levothyroxine 88 mcg tablet RxNorm: 440844 1 Tablet(s) PO daily 01/28/2015 01/27/2015 Inactive diltiazem ER 120 mg capsule,extended release RxNorm: 104197 1 Capsule(s) PO BID patient would like 4 months at a time 01/06/2015 09/28/2015 Inactive digoxin 125 mcg tablet RxNorm: 283003 Tablet(s) 1 TABLET(S) PO DAILY 12/24/2014 12/23/2014 Inactive pt will be paying palomares (On $4 list)Patient requests 90 days supply digoxin 125 mcg tablet RxNorm: 627335 Tablet(s) 1 TABLET(S) PO DAILY M W F Sat and 2 tabs on T TH 12/24/2014 05/06/2015 Inactive pt will be paying palomares (On $4 list)Patient requests 90 days supply dicyclomine 20 mg tablet RxNorm: 553350 1 Tablet(s) PO daily 11/17/2014 08/31/2015 Inactive one ac dinner and up to tid prn levothyroxine 88 mcg tablet RxNorm: 282268 1 Tablet(s) PO daily 11/03/2014 01/27/2015 Inactive Premarin 0.625 mg/gram vaginal cream RxNorm: 460682 1 APPLICATION VAG 1 APPLICATOR PER VAGINA 3 TIMES PER WEEK 11/03/2014 07/30/2015 Inactive digoxin 125 mcg tablet RxNorm: 032252 1 TABLET(S) PO DAILY 09/29/2014 12/23/2014 Inactive pt will be paying palomares (On $4 list)Patient requests 90 days supply digoxin 125 mcg tablet RxNorm: 393394 1 TABLET(S) PO DAILY 07/11/2014 04/06/2015 Inactive Vesicare 10 mg tablet RxNorm: 611230 1/2 Tablet(s) PO BID 05/20/2014 05/14/2015 Inactive Levaquin 500 mg tablet RxNorm: 474578 1 Tablet(s) PO daily 05/06/2014 05/08/2014 Inactive take probiotic BID while on ABT Levaquin 500 mg tablet RxNorm: 552102 1 Tablet(s) PO daily 05/02/2014 05/05/2014 Inactive take probiotic BID while on ABT diltiazem ER 120 mg capsule,extended release RxNorm: 538255 1 Capsule(s) PO BID patient would like 4 months at a time 04/29/2014 2015 Inactive Vesicare 10 mg tablet RxNorm: 252573 1/2 Tablet(s) PO BID 04/29/2014 05/19/2014 Inactive lisinopril 20 mg tablet RxNorm: 127502 1 Tablet(s) PO BID 03/20/2014 03/14/2015 Inactive diltiazem 90 mg tablet RxNorm: 944581 1/2 TABLET(S) PO QPM 03/04/2014 04/28/2014 Inactive also 180 q am diltiazem ER 120 mg capsule,extended release RxNorm: 563374 1 Capsule(s) PO daily patient would like 4 months at a time 01/29/2014 04/28/2014 Inactive Vesicare 10 mg tablet RxNorm: 571436 1 Tablet(s) PO QHS 01/14/2014 04/28/2014 Inactive Coumadin 2 mg tablet RxNorm: 550188 4mg in AM and 1mg at night Tablet(s) PO daily as directed. 12/25/2013 03/30/2015 Inactive Metanx 3 mg-35 mg-2 mg tablet RxNorm: 1 Tablet(s) PO daily 12/25/2013 11/02/2015 Inactive digoxin 125 mcg tablet RxNorm: 467343 1 Tablet(s) PO daily 12/25/2013 09/28/2014 Inactive pt will be paying palomares (On $4 list) Coumadin 2 mg tablet RxNorm: 778766 7.5 wed 5mg other Tablet(s) PO as directed. 12/03/2013 12/24/2013 Inactive omeprazole 20 mg tablet,delayed release RxNorm: 977538 1 Tablet(s) PO BID 11/27/2013 04/28/2014 Inactive Coumadin 2 mg tablet RxNorm: 366762 5 mg daily Tablet(s) PO as directed. 11/26/2013 12/02/2013 Inactive 5 mg daily Xanax 0.25 mg tablet RxNorm: 635983 1 Tablet(s) PO Q6 PRN 11/11/2013 12/25/2013 Inactive alprazolam 0.25 mg tablet RxNorm: 657485 tablet oral 11/11/2013 03/22/2015 Inactive sucralfate 1 gram tablet RxNorm: 375819 1 Tablet(s) PO AC & HS 11/04/2013 11/03/2013 Inactive sucralfate 1 gram tablet RxNorm: 640043 1 Tablet(s) PO AC & HS 11/04/2013 01/02/2014 Inactive Synthroid 100 mcg tablet RxNorm: 137371 1 Tablet(s) PO daily 10/31/2013 10/25/2014 Inactive Synthroid 100 mcg tablet RxNorm: 919149 1 Tablet(s) PO daily 09/30/2013 10/29/2013 Inactive Vesicare 10 mg tablet RxNorm: 300203 1 Tablet(s) PO QHS 09/30/2013 01/13/2014 Inactive Lotemax 0.5 % eye ointment RxNorm: 3704741 ointment opht 09/06/2013 12/10/2013 Inactive levothyroxine 100 mcg tablet RxNorm: 926780 tablet oral 09/05/2013 11/02/2014 Inactive Synthroid 100 mcg tablet RxNorm: 609940 1 Tablet(s) PO daily 09/05/2013 09/29/2013 Inactive Prolia 60 mg/mL Sub-Q Syringe RxNorm: 940295 1 Milliliter(s) SQ 06/25/2013 11/02/2015 Inactive dicyclomine 20 mg tablet RxNorm: 653642 1 Tablet(s) PO daily 06/24/2013 06/18/2014 Inactive one ac dinner and up to tid prn omeprazole 20 mg tablet,delayed release RxNorm: 800750 1 Tablet(s) PO BID 06/24/2013 11/26/2013 Inactive Cipro 500 mg tablet RxNorm: 175736 1 Tablet(s) PO BID 06/20/2013 06/26/2013 Inactive diltiazem ER 120 mg capsule,extended release RxNorm: 081719 1 Capsule(s) PO daily patient would like 4 months at a time 06/03/2013 01/28/2014 Inactive Coumadin 2 mg tablet RxNorm: 141115 as directed Tablet(s) PO as directed. 05/29/2013 11/25/2013 Inactive 5 mg daily Synthroid 88 mcg tablet RxNorm: 907300 1 Tablet(s) PO daily 04/24/2013 04/23/2013 Inactive Synthroid 88 mcg tablet RxNorm: 468067 1 Tablet(s) PO daily 04/24/2013 07/28/2013 Inactive Premarin 0.625 mg/gram vaginal cream RxNorm: 145886 1 Application VAG 1 applicator per vagina 3 times per week 04/23/2013 04/17/2014 Inactive Influenza Virus Vaccine 0.5 mL RxNorm: IM 04/23/2013 04/23/2013 Inactive digoxin 125 mcg tablet RxNorm: 893113 1 Tablet(s) PO daily 02/20/2013 04/20/2013 Inactive pt will be paying palomares (On $4 list) Digox 125 mcg tablet RxNorm: 4550378 tablet oral 02/13/2013 03/20/2014 Inactive digoxin 125 mcg tablet RxNorm: 998854 1 Tablet(s) PO daily 02/13/2013 02/19/2013 Inactive diltiazem 90 mg tablet RxNorm: 571710 1/2 Tablet(s) PO QPM 02/13/2013 02/07/2014 Inactive also 180 q am Levoxyl 75 mcg tablet RxNorm: 162560 1 Tablet(s) PO 01/16/2013 04/23/2013 Inactive Coumadin 2 mg tablet RxNorm: 311939 6mg daily except 3mg on wed and fri Tablet(s) PO 01/15/2013 05/28/2013 Inactive 5 mg daily Coumadin 2 mg tablet RxNorm: 334367 6mg daily Tablet(s) PO 12/21/2012 01/14/2013 Inactive 5 mg daily silver sulfadiazine 1 % Topical Cream RxNorm: 962203 TOP apply to affected area with each dressing change 12/19/2012 12/25/2013 Inactive cephalexin 500 mg tablet RxNorm: 788342 1 Tablet(s) PO TID 12/11/2012 12/17/2012 Inactive digoxin 125 mcg tablet RxNorm: 386964 1 Tablet(s) PO daily 10/30/2012 02/12/2013 Inactive digoxin 125 mcg tablet RxNorm: 308303 2 tab tue thurs one other days Tablet(s) PO daily 10/23/2012 10/29/2012 Inactive lisinopril 10 mg tablet RxNorm: 409909 1 Tablet(s) PO daily 10/17/2012 08/14/2013 Inactive Cipro 500 mg tablet RxNorm: 831401 1 Tablet(s) PO BID 09/13/2012 09/19/2012 Inactive Coumadin 1 mg tablet RxNorm: 926478 1 Tablet(s) PO daily 09/03/2012 09/02/2012 Inactive Coumadin 1 mg tablet RxNorm: 011474 1 Tablet(s) PO daily 09/03/2012 12/21/2012 Inactive Coumadin 2 mg tablet RxNorm: 226783 Tablet(s) PO 07/25/2012 12/20/2012 Inactive 5 mg daily digoxin 125 mcg tablet RxNorm: 502189 1 Tablet(s) PO daily 06/28/2012 10/22/2012 Inactive Coumadin 2 mg tablet RxNorm: 685043 Tablet(s) PO 06/27/2012 07/24/2012 Inactive 5mg daily except 4mg on monday Coumadin 2 mg tablet RxNorm: 737654 Tablet(s) PO 06/19/2012 06/26/2012 Inactive 5mg tue wed thur sat sun4mg mon frid(has 2mg and 1 mg tab) digoxin 125 mcg tablet RxNorm: 436139 1 Tablet(s) PO daily 05/29/2012 06/27/2012 Inactive Coumadin 2 mg tablet RxNorm: 673698 Tablet(s) PO 05/15/2012 06/18/2012 Inactive 5mg tue thur sat sun4mg mon frid(has 2mg and 1 mg tab) Coumadin 2 mg tablet RxNorm: 404317 Tablet(s) PO 04/25/2012 05/14/2012 Inactive 5mg tue thru sat4mg mon mon frid sun(has 2mg and 1 mg tab) Metanx 3 mg-35 mg-2 mg tablet RxNorm: 1 Tablet(s) PO BID 04/18/2012 12/24/2013 Inactive dicyclomine 20 mg tablet RxNorm: 837505 1 Tablet(s) PO 04/18/2012 06/23/2013 Inactive one ac dinner and up to tid prn digoxin 125 mcg tablet RxNorm: 065181 Tablet(s) PO daily except .25 on Tuesdays and 04/09/2012 05/28/2012 Inactive omeprazole 20 mg tablet,delayed release RxNorm: 847830 1 Tablet(s) PO BID 04/09/2012 04/03/2013 Inactive digoxin 125 mcg tablet RxNorm: 917719 1 Tablet(s) PO UD daily except none on Tuesdays and 03/13/2012 04/08/2012 Inactive Premarin 0.625 mg/gram Vaginal Cream RxNorm: 293976 1 Application VAG 1 applicator per vagina 3 times per week 02/20/2012 02/13/2013 Inactive omeprazole 20 mg tablet,delayed release RxNorm: 116187 1 Tablet(s) PO BID 02/13/2012 04/08/2012 Inactive Vesicare 10 mg tablet RxNorm: 688866 1 Tablet(s) PO QHS 02/13/2012 02/06/2013 Inactive Diflucan 150 mg tablet RxNorm: 945019 1 Tablet(s) PO daily 02/13/2012 02/19/2012 Inactive omeprazole 20 mg tablet,delayed release RxNorm: 235270 1 Tablet(s) PO BID 01/06/2012 02/12/2012 Inactive Calcium 600 + D(3) 600 mg (1,500)-200 unit Tab RxNorm: 427041 2 Tablet(s) PO BID 01/06/2012 08/31/2015 Inactive diltiazem 90 mg tablet RxNorm: 625320 1/2 Tablet(s) PO QPM 12/26/2011 02/12/2013 Inactive also 180 q am diltiazem ER 180 mg Cap RxNorm: 236795 1 Capsule(s) PO QAM 12/26/2011 04/08/2012 Inactive 45mg q hs Flagyl 500 mg Tab RxNorm: 584296 1 Tablet(s) PO BID 12/14/2011 12/20/2011 Inactive dicyclomine 10 mg Cap RxNorm: 194385 1 Capsule(s) PO AC & HS 12/01/2011 12/25/2011 Inactive Levaquin 500 mg Tab RxNorm: 806903 1 Tablet(s) PO daily 11/23/2011 11/29/2011 Inactive Rocephin 500 mg Solution for Injection RxNorm: 1309561 Inj 11/23/2011 11/23/2011 Inactive acyclovir 400 mg Tab RxNorm: 608257 1 Tablet(s) PO QID 11/10/2011 11/19/2011 Inactive acyclovir 400 mg Tab RxNorm: 499172 1 Tablet(s) PO QID 11/10/2011 11/09/2011 Inactive lisinopril 20 mg Tab RxNorm: 754950 1 Tablet(s) PO daily 10/03/2011 11/27/2011 Inactive lisinopril 20 mg Tab RxNorm: 154188 1 Tablet(s) PO daily 08/08/2011 10/02/2011 Inactive Reclast 5 mg/100 mL IV RxNorm: 121296 Milliliter(s) IV Yearly 06/08/2011 01/16/[address] Hansen manages Rocephin 500 mg Solution for Injection RxNorm: 7393508 1 Milliliter(s) Inj 03/04/2011 08/08/2011 Inactive Ceftin 500 mg Tab RxNorm: 299226 1 Tablet(s) PO BID 03/04/2011 08/08/2011 Inactive Vitamin D3 1,000 unit tablet RxNorm: 812757 2 Tablet(s) PO daily No Start Date Active Stool Softener 100 mg tablet RxNorm: 4807619 2 Tablet(s) PO QHS No Start Date Active Beano tablet RxNorm: 2-3 Tablet(s) PO as needed No Start Date Active Probiotic Pearls 15 mg (1 billion cell) capsule,delayed release RxNorm: 1 Capsule(s) PO daily No Start Date Active Lipitor 10 mg tablet RxNorm: 645303 1 Tablet(s) PO daily No Start Date Active Miralax 17 gram oral powder packet RxNorm: 776505 1/2 packet PO QHS No Start Date Active multivitamin Tab RxNorm: 1 Tablet(s) PO daily No Start Date Active Tylenol Extra Strength 500 mg tablet RxNorm: 556583 2 Tablet(s) PO as needed No Start Date Active Combigan 0.2 %-0.5 % eye drops RxNorm: 276231 1 Drop(s) OPH BID No Start Date Active 1 drop twice daily left eye Lexapro 5 mg tablet RxNorm: 758411 1 Tablet(s) PO daily No Start Date Active Tatiana Allergy 180 mg tablet RxNorm: 016364 1 Tablet(s) PO daily No Start Date Active Lotemax 0.5 % eye drops,suspension RxNorm: 338866 1 Drop(s) OPH right eye BID No Start Date Active Levoxyl 50 mcg tablet RxNorm: 235618 1 Tablet(s) PO daily No Start Date 01/15/2013 Inactive lisinopril-hydrochlorothiazide 20 mg-25 mg Tab RxNorm: 897693 1 Tablet(s) PO daily No Start Date 08/07/2011 Inactive Metanx 3 mg-35 mg-2 mg tablet RxNorm: 1 Tablet(s) PO daily No Start Date 04/17/2012 Inactive diltiazem CD 120 mg capsule,extended release 24 hr RxNorm: 862130 1 Capsule(s) PO daily No Start Date 09/28/2015 Inactive lisinopril 20 mg tablet RxNorm: 775478 Tablet(s) PO No Start Date Active Lumigan 0.01 % Eye Drops RxNorm: 8688747 1 Drop(s) OPH daily Left eye No Start Date 12/10/2013 Inactive prednisolone acetate 1 % Eye Drops, Susp RxNorm: 8802213 1 Drop(s) OPH BID 1 drop right eye am and hs No Start Date 11/02/2015 Inactive Eliquis 5 mg tablet RxNorm: 0474120 1 Tablet(s) PO BID No Start Date 06/08/2016 Inactive potassium gluconate (bulk) Misc RxNorm: Miscellaneous No Start Date 12/25/2011 Inactive Calcium 600 + D(3) 600 mg (1,500)-200 unit Tab RxNorm: 714716 3 Tablet(s) PO daily No Start Date 2012 Inactive Zyrtec 10 mg tablet RxNorm: 6642394 1 Tablet(s) PO daily No Start Date 08/02/2016 Inactive Synthroid 100 mcg tablet RxNorm: 442537 1 Tablet(s) PO daily No Start Date 09/04/2013 Inactive metoprolol succinate ER 50 mg tablet,extended release 24 hr RxNorm: 945331 1 Tablet(s) PO daily No Start Date 03/23/2016 Inactive Carafate 100 mg/mL oral suspension RxNorm: 038071 2 Teaspoon(s) PO as needed with reflux symptoms No Start Date 06/03/2018 Inactive Metanx 3 mg-35 mg-2 mg tablet RxNorm: 1 Tablet(s) PO daily 2pm No Start Date 11/02/2015 Inactive Lexapro 5 mg tablet RxNorm: 586968 1 Tablet(s) PO daily No Start Date 08/18/2015 Inactive Iron (dried) oral RxNorm: 41488 oral No Start Date 11/02/2015 Inactive timolol 0.5 % Eye Drops RxNorm: 868443 1 Drop(s) OPH daily left eye No Start Date 12/18/2013 Inactive multivitamin Cap RxNorm: 1 Capsule(s) PO daily No Start Date 12/25/2011 Inactive dicyclomine 10 mg Cap RxNorm: 620498 2 Capsule(s) PO daily No Start Date 11/30/2011 Inactive silver sulfadiazine 1 % Topical Cream RxNorm: 148510 TOP apply to affected area with each dressing change No Start Date 12/18/2012 Inactive magnesium oxide 400 mg Tab RxNorm: 069737 1 Tablet(s) PO daily No Start Date 11/02/2015 Inactive Pradaxa 75 mg Cap RxNorm: 2974215 1 Capsule(s) PO BID No Start Date 04/09/2012 Inactive magnesium oxide 400 mg Tab RxNorm: 853349 2 Tablet(s) PO daily magnesium plus zinc No Start Date 12/25/2011 Inactive biotin 1000 mg RxNorm: 1 PO daily No Start Date 12/25/2011 Inactive Synthroid 50 mcg Tab RxNorm: 422257 Tablet(s) PO No Start Date 12/25/2011 Inactive diltiazem ER 180 mg Cap RxNorm: 870163 1 Capsule(s) PO daily No Start Date 12/25/2011 Inactive 1 D 3 1000 iu Oral RxNorm: Oral No Start Date 12/25/2011 Inactive Coumadin 2 mg tablet RxNorm: 882567 Tablet(s) PO No Start Date 04/24/2012 Inactive 5mg tue [id number] mon fri sat sun(has 2mg and 1 mg tab) dicyclomine 20 mg tablet RxNorm: 813248 Tablet(s) PO No Start Date 04/17/2012 Inactive one ac dinner and up to tid prn lactobacillus acidophilus tablet RxNorm: 1 Tablet(s) PO daily No Start Date 11/03/2015 Inactive Eliquis 2.5 mg tablet RxNorm: 4266340 1 Tablet(s) PO BID No Start Date 07/25/2017 Inactive Levoxyl 75 mcg Tab RxNorm: 812417 1 Tablet(s) PO daily No Start Date 10/02/2011 Inactive digoxin 125 mcg tablet RxNorm: 440382 1 Tablet(s) PO daily No Start Date 03/12/2012 Inactive pantoprazole 40 mg tablet,delayed release RxNorm: 386262 1 Tablet(s) PO BID No Start Date 01/04/2016 Inactive cyclobenzaprine 5 mg tablet RxNorm: 250026 1/2 Tablet(s) PO Q8 PRN No Start Date 10/24/2016 Inactive diltiazem 90 mg Tab RxNorm: 456911 1/2 Tablet(s) PO QPM No Start Date 12/25/2011 Inactive Mirapex 1 mg Tab RxNorm: 383810 1 Tablet(s) PO QHS No Start Date 12/25/2011 Inactive Xanax 0.25 mg tablet RxNorm: 346631 1 Tablet(s) PO Q6 PRN No Start Date 11/10/2013 Inactive Premarin 0.625 mg/gram Vaginal Cream RxNorm: 308138 1 Application VAG 1 applicator per vagina 3 times per week No Start Date 02/19/2012 Inactive Synthroid 75 mcg Tab RxNorm: 989315 1 Tablet(s) PO daily No Start Date 04/17/2012 Inactive lisinopril 40 mg Tab RxNorm: 387826 1 Tablet(s) PO daily No Start Date 12/25/2011 Inactive Glucosamine Chondroitin Complex Advanced [id number]-1.65mg Tab RxNorm: 2 Tablet(s) PO daily No Start Date 08/08/2011 Inactive famotidine 20 mg tablet RxNorm: 661825 1 Tablet(s) PO QAM No Start Date 11/02/2015 Inactive cranberry extract 250 mg Tab RxNorm: 505955 2 Tablet(s) PO daily No Start Date 08/08/2011 Inactive Vitamin D3 1,000 unit capsule RxNorm: 458464 1 Capsule(s) PO daily No Start Date 08/31/2015 Inactive aspirin 81 mg Tab, Delayed Release RxNorm: 331498 1 Tablet(s) PO daily No Start Date 08/31/2015 Inactive diltiazem ER 120 mg capsule,extended release RxNorm: 236320 1 Capsule(s) PO daily patient would like 4 months at a time No Start Date 06/02/2013 Inactive omeprazole 20 mg Tab, Delayed Release RxNorm: 309332 2 Tablet(s) PO QHS No Start Date 2012 Inactive lisinopril 10 mg tablet RxNorm: 206093 1/2 Tablet(s) PO daily No Start Date 10/16/2012 Inactive Pred Forte 1 % Eye Drops RxNorm: 760022 1 Drop(s) OPH daily right eye No Start Date 12/25/2013 Inactive calcium carbonate 400 mg Chewable Tab RxNorm: 907113 1 Tablet(s) PO daily No Start Date 08/08/2011 Inactive Vesicare 10 mg tablet RxNorm: 209910 1 Tablet(s) PO QHS No Start Date 02/12/2012 Inactive Symbicort 160 mcg-4.5 mcg/actuation HFA aerosol inhaler RxNorm: 7919712 2 Puff(s) INH BID No Start Date 12/13/2017 Inactive potassium 99 mg tablet RxNorm: 1 Tablet(s) PO QPM No Start Date 12/25/2013 Inactive timolol 0.25 % Eye Drops RxNorm: 404117 1 Drop(s) OPH daily Left eye No Start Date 04/17/2012 Inactive diltiazem ER 90 mg capsule,extended release 12 hr RxNorm: 008939 1/2 Capsule(s) PO QPM No Start Date 04/28/2014 Inactive cyclobenzaprine 5 mg Tab RxNorm: 308445 1/2-1 Tablet(s) PO Q8 PRN No Start Date 12/25/2011 Inactive 1/2 - 1 tab q 8hrs prn muscle spasms Medication Administered Medication Codes Instructions Start Date Status Influenza Virus Vaccine 0.5 mL RxNorm: 04/23/2013 No longer Active Rocephin 500 mg Solution for Injection RxNorm: 2620012 11/23/2011 No longer Active Immunizations Vaccine Codes [...] hypertension ICD-10: I10 ICD-9: 401.9 01/31/2018 Other long-term (current) drug therapy ICD-10: Z79.899 ICD-9: V58.83 [...] hemorrhoids ICD-10: K64.0 ICD-9: 455.6 03/24/2016 Other long-term (current) drug therapy ICD-10: Z79.899 ICD-9: V58.69 [...] Code Result Date C RAP A SC 5390185 Strep A Negative 11/30/2018 Electrolytes Ord62 NA 132 mEq/L 09/25/2018 Electrolytes Ord62 K 4.1 mEq/L 09/25/2018 Electrolytes Ord62 CL 98 mEq/L 09/25/2018 Electrolytes Ord62 CO2 26.0 mEq/L 09/25/2018 Electrolytes Ord62 ANION GAP 12 09/25/2018 Comp Metabolic Vne805 NA 130 mEq/L 09/12/2018 Comp Metabolic Tfu098 K 4.2 mEq/L 09/12/2018 Comp Metabolic Qup800 CL 98 mEq/L 09/12/2018 Comp Metabolic Wzt701 CO2 23.0 mEq/L 09/12/2018 Comp Metabolic Kex292 ANION GAP 13 09/12/2018 Comp Metabolic Gsr581 GLUCOSE 129 mg/dL 09/12/2018 Comp Metabolic Atw895 Creat 1.0 mg/dL 09/12/2018 Comp Metabolic Rer802 eGFR 58 ml/min/1.73m2 09/12/2018 Comp Metabolic Sfv639 BUN 28 mg/dL 09/12/2018 Comp Metabolic Wbv860 B/C Ratio 28.9 Ratio 09/12/2018 Comp Metabolic Lpy012 CALCIUM 9.1 mg/dL 09/12/2018 Comp Metabolic Xwh446 ALK PHOS 59 U/L 09/12/2018 Comp Metabolic Eos761 AST(SGOT) 21 U/L 09/12/2018 Comp Metabolic Qhb045 ALT(SGPT) 19 U/L 09/12/2018 Comp Metabolic Trl906 BILI T 0.8 mg/dL 09/12/2018 Comp Metabolic Itg669 ALBUMIN 3.9 g/dL 09/12/2018 Comp Metabolic Tdm888 TPRO 6.5 g/dL 09/12/2018 Comp Metabolic Bxo122 GLOB 2.6 g/dL 09/12/2018 Comp Metabolic Bfh207 A/G Ratio 1.5 Ratio 09/12/2018 Comp Metabolic Xov128 Osmo 268 mOsmo 09/12/2018 Tsh Ord6 TSH (3rd IS) 12.84 uIU/mL 09/12/2018 Influenza A+B Fux702 Influ A+B Negative 09/12/2018 Cbc With Differential [...] 12.3 % 09/12/2018 Cbc With Differential Ord2 [place]% 12.0 % 09/12/2018 Cbc With Differential Ord2 [...] 0.85 K/ul 09/12/2018 Cbc With Differential Ord2 [place] ABS# 0.8 K/ul 09/12/2018 Cbc With Differential Ord2 Eos ABS# 0.1 K/ul 09/12/2018 Cbc With Differential Ord2 Baso ABS# 0.0 K/ul 09/12/2018 Free T4 Lfa650 FREE T4 1.10 ng/dL 09/12/2018 Free T4 Ofp840 FREE T4 1.19 ng/dL 05/08/2018 Digoxin Ord9 DIGOXIN 0.6 NG/ML 05/08/2018 Tsh Ord6 TSH (3rd IS) 10.58 uIU/mL 05/08/2018 Tsh Ord6 TSH (3rd IS) 1.07 uIU/mL 01/31/2018 Free T4 Wgd930 FREE T4 1.63 ng/dL 01/31/2018 Digoxin Ord9 DIGOXIN 0.8 NG/ML 01/31/2018 C RAP A SC [id number] Strep A Negative 11/21/2016 Thyroid Antibodies 176767 THYROGLOBULIN ANTIBODY . 11/04/2016 Thyroid Antibodies 001196 THYROGLOBULIN ANTIBODY 919 IU/mL 11/04/2016 Thyroid Antibodies 056597 THYROID PEROXIDASE (TPO) AB . 11/04/2016 Thyroid Antibodies 940526 THYROID PEROXIDASE (TPO) AB 10 IU/mL 11/04/2016 Total T3 Ord42 TT3 0.64 ng/ml 11/03/2016 Free T4 Gfm996 FREE T4 1.39 ng/dL 11/02/2016 Tsh Ord6 [...] Differential Ord2 RDW 13.8 % 05/26/2015 Pt Jom3967 PT 25.0 seconds 05/26/2015 Pt Nzr5271 INR 2.4 05/26/2015 Pt Kmg9094 Low Intensity - 1.5-2.0 05/26/2015 Pt Gzt7702 Mod intensity - 2.0-3.0 05/26/2015 Pt Gjf6014 Hi intensity - 3.0-4.0 05/26/2015 Uric Acid [...] Digoxin Ord9 DIGOXIN 0.6 NG/ML 05/06/2015 Pt Asl2513 PT 23.3 seconds 05/06/2015 Pt Fon2141 INR 2.1 05/06/2015 Pt Eax3515 Low Intensity - 1.5-2.0 05/06/2015 Pt Kxw2292 Mod intensity - 2.0-3.0 05/06/2015 Pt Rnz6671 Hi intensity - 3.0-4.0 05/06/2015 Free T4 Clm706 FREE T4 1.65 ng/dL 05/06/2015 Comp Metabolic Pzx852 NA 132 mEq/L 05/06/2015 Comp Metabolic Hxq995 K 4.1 mEq/L 05/06/2015 Comp Metabolic Bbh687 CL 98 mEq/L 05/06/2015 Comp Metabolic Trx608 CO2 27.0 mEq/L 05/06/2015 Comp Metabolic Bmz839 ANION GAP 11 05/06/2015 Comp Metabolic Ewv585 GLUCOSE 71 mg/dL 05/06/2015 Comp Metabolic Cld182 Creat 0.7 mg/dL 05/06/2015 Comp Metabolic Fsx850 eGFR 82 ml/min/1.73m2 05/06/2015 Comp Metabolic Qmt942 BUN 16 mg/dL 05/06/2015 Comp Metabolic Adf960 B/C Ratio 22.2 Ratio 05/06/2015 Comp Metabolic Ohw125 CALCIUM 9.4 mg/dL 05/06/2015 Comp Metabolic Gal722 ALK PHOS 60 U/L 05/06/2015 Comp Metabolic Xhk519 AST(SGOT) 22 U/L 05/06/2015 Comp Metabolic Afe480 ALT(SGPT) 24 U/L 05/06/2015 Comp Metabolic Wra167 BILI T 0.8 mg/dL 05/06/2015 Comp Metabolic Qhs857 ALBUMIN 4.3 g/dL 05/06/2015 Comp Metabolic Wsx832 TPRO 7.6 g/dL 05/06/2015 Comp Metabolic Mju902 GLOB 3.3 g/dL 05/06/2015 Comp Metabolic Vfl859 A/G Ratio 1.3 Ratio 05/06/2015 Comp Metabolic Vch087 Osmo 264 mOsmo 05/06/2015 DIGOXIN 7690269 DIGOXIN 1.1 NG/ML 05/15/2013 PT/MC 2973476 PRO TIME 21.7 SEC 05/15/2013 PT/MC 9926427 INR MCMC 2.0 05/15/2013 CHEM 14 7404904 AST 24 U/L 04/23/2013 CHEM 14 9270436 ALT 31 IU/L 04/23/2013 CHEM 14 3993596 BUN 13 MG/DL 04/23/2013 CHEM 14 2094752 ALBUMIN 4.1 GM/DL 04/23/2013 CHEM 14 2978968 CHLORIDE 103 MMOL/L 04/23/2013 CHEM 14 9150061 BILI TOT 0.5 MG/DL 04/23/2013 CHEM 14 3625137 ALK PHOS 44 U/L 04/23/2013 CHEM 14 3005871 SODIUM 137 MMOL/L 04/23/2013 CHEM 14 7429370 CREATININE 0.61 MG/DL 04/23/2013 CHEM 14 4747585 CALCIUM 9.5 MG/DL 04/23/2013 CHEM 14 6244803 POTASSIUM 4.0 MMOL/L 04/23/2013 CHEM 14 8244679 PROT TOT 6.6 GM/DL 04/23/2013 CHEM 14 2426856 GLUCOSE 99 MG/DL 04/23/2013 CHEM 14 0418651 BICARB 27 MMOL/L 04/23/2013 CHEM 14 4088311 ANION GAP 7 MEQ/L 04/23/2013 GFR CALC 7328151 GFR AA >60 ML/MIN 04/23/2013 GFR CALC 4483995 GFR NON-AA >60 ML/MIN 04/23/2013 TSH 2753064 TSH 4.204 uIU/ML 04/23/2013 CBC 0478780 WBC 6.7 10e9/L 04/23/2013 CBC 0403771 RBC 4.19 10e12/L 04/23/2013 CBC 5975714 HGB 13.2 g/dL 04/23/2013 CBC 0010565 HCT DET 39.2 % 04/23/2013 CBC 4764479 MCV 93.6 fL 04/23/2013 CBC 2517175 MCH 31.5 pg 04/23/2013 CBC 5098969 MCHC 33.7 g/dL 04/23/2013 CBC 4547364 PLT 202 10e9/L 04/23/2013 CBC 8708669 MPV 11.4 fL 04/23/2013 CBC 7251747 YANIRA % 70.5 % 04/23/2013 CBC 2652988 LY % 19.6 % 04/23/2013 CBC 5575696 MON % 8.2 % 04/23/2013 CBC 5617760 EOS % 1.6 % 04/23/2013 CBC 3635730 BASO % 0.1 % 04/23/2013 CBC 9927449 RDW 13.7 % 04/23/2013 CBC 2329278 ABS YANIRA 4.72 10e9/L 04/23/2013 CBC 6247043 ABS LYMPH 1.31 10e9/L 04/23/2013 CBC 6175725 ABS MONO 0.55 10e9/L 04/23/2013 CBC 8766121 ABS EOS 0.11 10e9/L 04/23/2013 CBC 6038314 ABS BASO 0.01 10e9/L 04/23/2013 CBC 6637253 RDW-SD 45.7 fL 04/23/2013 PT/MC 6254284 PRO TIME 13.4 SEC 12/17/2012 PT/MC 8096961 INR MCMC 1.0 12/17/2012 PT/MC 4345781 PRO TIME 16.6 SEC 12/14/2012 PT/MC 9812667 INR MCMC 1.4 12/14/2012 PT/MC 2250888 PRO TIME 27.2 SEC 12/11/2012 PT/MC 3083004 INR MCMC 2.6 12/11/2012 DIGOXIN 1655821 DIGOXIN 2.1 NG/ML 03/08/2012 GFR CALC 7341439 GFR AA >60 ML/MIN 03/08/2012 GFR CALC 6272692 GFR NON-AA >60 ML/MIN 03/08/2012 CHEM 14 2178599 AST 16 U/L 03/08/2012 CHEM 14 3080465 ALT 14 IU/L 03/08/2012 CHEM 14 0334664 BUN 10 MG/DL 03/08/2012 CHEM 14 5006942 ALBUMIN 4.2 GM/DL 03/08/2012 CHEM 14 9425309 CHLORIDE 100 MMOL/L 03/08/2012 CHEM 14 6454569 BILI TOT 0.5 MG/DL 03/08/2012 CHEM 14 7278340 ALK PHOS 59 U/L 03/08/2012 CHEM 14 8031476 SODIUM 136 MMOL/L 03/08/2012 CHEM 14 3425321 CREATININE 0.65 MG/DL 03/08/2012 CHEM 14 2042478 CALCIUM 9.4 MG/DL 03/08/2012 CHEM 14 6337344 POTASSIUM 3.9 MMOL/L 03/08/2012 CHEM 14 7799245 PROT TOT 6.7 GM/DL 03/08/2012 CHEM 14 9271795 GLUCOSE 90 MG/DL 03/08/2012 CHEM 14 8926490 BICARB 30 MMOL/L 03/08/2012 CHEM 14 4381937 ANION GAP 6 MEQ/L 03/08/2012 CHEM 14 4638305 AST 16 U/L 11/23/2011 CHEM 14 7882239 ALT 14 IU/L 11/23/2011 CHEM 14 4726007 BUN 11 MG/DL 11/23/2011 CHEM 14 0518046 ALBUMIN 4.1 GM/DL 11/23/2011 CHEM 14 3607859 CHLORIDE 100 MMOL/L 11/23/2011 CHEM 14 8435062 BILI TOT 0.5 MG/DL 11/23/2011 CHEM 14 7747477 ALK PHOS 50 U/L 11/23/2011 CHEM 14 6616343 SODIUM 135 MMOL/L 11/23/2011 CHEM 14 4342414 CREATININE 0.57 MG/DL 11/23/2011 CHEM 14 0925428 CALCIUM 9.1 MG/DL 11/23/2011 CHEM 14 9613084 POTASSIUM 4.5 MMOL/L 11/23/2011 CHEM 14 2702127 PROT TOT 6.5 GM/DL 11/23/2011 CHEM 14 7177031 GLUCOSE 89 MG/DL 11/23/2011 CHEM 14 4152866 BICARB 28 MMOL/L 11/23/2011 CHEM 14 7548617 ANION GAP 7 MEQ/L 11/23/2011 GFR CALC 0895624 GFR AA >60 ML/MIN 11/23/2011 GFR CALC 2000007 GFR NON-AA >60 ML/MIN 11/23/2011 CBC 4566871 WBC 5.1 10e9/L 11/23/2011 CBC 6810139 RBC 4.06 10e12/L 11/23/2011 CBC 7031625 HGB 12.5 g/dL 11/23/2011 CBC 8620030 HCT DET 37.3 % 11/23/2011 CBC 2893333 MCV 91.9 fL 11/23/2011 CBC 5862449 MCH 30.8 pg 11/23/2011 CBC 9976673 MCHC 33.5 g/dL 11/23/2011 CBC 9812205 PLT 222 10e9/L 11/23/2011 CBC 8525743 MPV 10.8 fL 11/23/2011 CBC 7523864 YANIRA % 64.2 % 11/23/2011 CBC 7113137 LY % 22.3 % 11/23/2011 CBC 3204238 MON % 11.3 % 11/23/2011 CBC 7771238 EOS % 1.8 % 11/23/2011 CBC 4346150 BASO % 0.4 % 11/23/2011 CBC 9486967 RDW 13.6 % 11/23/2011 CBC 1420184 ABS YANIRA 3.27 10e9/L 11/23/2011 CBC 8269223 ABS LYMPH 1.14 10e9/L 11/23/2011 CBC 6854013 ABS MONO 0.58 10e9/L 11/23/2011 CBC 5946025 ABS EOS 0.09 10e9/L 11/23/2011 CBC 9305768 ABS BASO 0.02 10e9/L 11/23/2011 CBC 8479011 RDW-SD 44.5 fL 11/23/2011 UA 33836 Specific [place] 1.005 03/04/2011 UA 40702 PH 6 03/04/2011 UA 95817 GLUCOSE N 03/04/2011 UA 11129 Protein N 03/04/2011 UA 24264 Blood ++ 03/04/2011 UA 97324 Bilirubin N 03/04/2011 UA 11352 Ketones N 03/04/2011 UA 16736 Urobilinogen N 03/04/2011 UA 27074 Nitrite N 03/04/2011 UA 63467 Leukocytes N 03/04/2011 URINALYSIS NONAUTO W/O SCOPE 89374 Specific [place] 1.010 DateTime(Free Text in Aprima) URINALYSIS NONAUTO W/O SCOPE 58026 PH 6.5 DateTime(Free Text in Aprima) URINALYSIS NONAUTO W/O SCOPE 62539 GLUCOSE neg DateTime(Free Text in Aprima) URINALYSIS NONAUTO W/O SCOPE 52335 Protein neg DateTime(Free Text in Aprima) URINALYSIS NONAUTO W/O SCOPE 42379 Blood 3+ DateTime(Free Text in Aprima) URINALYSIS NONAUTO W/O SCOPE 16035 Bilirubin neg DateTime(Free Text in Aprima) URINALYSIS NONAUTO W/O SCOPE 32306 Ketones neg DateTime(Free Text in Aprima) URINALYSIS NONAUTO W/O SCOPE 63915 Urobilinogen neg DateTime(Free Text in Aprima) URINALYSIS NONAUTO W/O SCOPE 39615 Nitrite neg DateTime(Free Text in Aprima) URINALYSIS NONAUTO W/O SCOPE 50492 Leukocytes neg DateTime(Free Text in Aprima) URINALYSIS NONAUTO W/O SCOPE 90659 Specific [place] 1.010 DateTime(Free Text in Aprima) URINALYSIS NONAUTO W/O SCOPE 35922 PH 5 DateTime(Free Text in Aprima) URINALYSIS NONAUTO W/O SCOPE 36117 GLUCOSE neg DateTime(Free Text in Aprima) URINALYSIS NONAUTO W/O SCOPE 61708 Protein neg DateTime(Free Text in Aprima) URINALYSIS NONAUTO W/O SCOPE 94330 Blood 3+ DateTime(Free Text in Aprima) URINALYSIS NONAUTO W/O SCOPE 42832 Bilirubin neg DateTime(Free Text in Aprima) URINALYSIS NONAUTO W/O SCOPE 92257 Ketones neg DateTime(Free Text in Aprima) URINALYSIS NONAUTO W/O SCOPE 01532 Urobilinogen neg DateTime(Free Text in Aprima) URINALYSIS NONAUTO W/O SCOPE 82825 Nitrite neg DateTime(Free Text in Aprima) URINALYSIS NONAUTO W/O SCOPE 76212 Leukocytes neg DateTime(Free Text in Aprima) URINALYSIS NONAUTO W/O SCOPE 66228 Specific [place] 1.005 DateTime(Free Text in Aprima) URINALYSIS NONAUTO W/O SCOPE 98132 PH 8.5 DateTime(Free Text in Aprima) URINALYSIS NONAUTO W/O SCOPE 47133 GLUCOSE neg DateTime(Free Text in Aprima) URINALYSIS NONAUTO W/O SCOPE 02701 Protein neg DateTime(Free Text in Aprima) URINALYSIS NONAUTO W/O SCOPE 84436 Blood 1+ DateTime(Free Text in Aprima) URINALYSIS NONAUTO W/O SCOPE 50556 Bilirubin neg DateTime(Free Text in Aprima) URINALYSIS NONAUTO W/O SCOPE 60689 Ketones neg DateTime(Free Text in Aprima) URINALYSIS NONAUTO W/O SCOPE 38055 Urobilinogen neg DateTime(Free Text in Aprima) URINALYSIS NONAUTO W/O SCOPE 49462 Nitrite neg DateTime(Free Text in Aprima) URINALYSIS NONAUTO W/O SCOPE 90210 Leukocytes neg DateTime(Free Text in Aprima) URINALYSIS NONAUTO W/O SCOPE 32136 Specific [place] 1.005 DateTime(Free Text in Aprima) URINALYSIS NONAUTO W/O SCOPE 35459 PH 7 DateTime(Free Text in Aprima) URINALYSIS NONAUTO W/O SCOPE 31768 GLUCOSE neg DateTime(Free Text in Aprima) URINALYSIS NONAUTO W/O SCOPE 87912 Protein neg DateTime(Free Text in Aprima) URINALYSIS NONAUTO W/O SCOPE 09200 Blood large DateTime(Free Text in Aprima) URINALYSIS NONAUTO W/O SCOPE 32533 Bilirubin neg DateTime(Free Text in Aprima) URINALYSIS NONAUTO W/O SCOPE 79752 Ketones neg DateTime(Free Text in Aprima) URINALYSIS NONAUTO W/O SCOPE 42661 Urobilinogen 0.2 DateTime(Free Text in Aprima) URINALYSIS NONAUTO W/O SCOPE 36706 Nitrite neg DateTime(Free Text in Aprima) URINALYSIS NONAUTO W/O SCOPE 83824 Leukocytes neg DateTime(Free Text in Aprima) URINALYSIS NONAUTO W/O SCOPE 22402 Specific [place] 1.005 DateTime(Free Text in Aprima) URINALYSIS NONAUTO W/O SCOPE 91577 PH 7.5 DateTime(Free Text in Aprima) URINALYSIS NONAUTO W/O SCOPE 28334 GLUCOSE DateTime(Free Text in Aprima) URINALYSIS NONAUTO W/O SCOPE 55681 Protein trace DateTime(Free Text in Aprima) URINALYSIS NONAUTO W/O SCOPE 17142 Blood 4+ DateTime(Free Text in Aprima) URINALYSIS NONAUTO W/O SCOPE 95873 Bilirubin DateTime(Free Text in Aprima) URINALYSIS NONAUTO W/O SCOPE 67208 Ketones DateTime(Free Text in Aprima) URINALYSIS NONAUTO W/O SCOPE 31587 Urobilinogen DateTime(Free Text in Aprima) URINALYSIS NONAUTO W/O SCOPE 04997 Nitrite DateTime(Free Text in Aprima) URINALYSIS NONAUTO W/O SCOPE 05687 Leukocytes trace DateTime(Free Text in Aprima) Review [...] time 09/12/2018 None Full Exam - General 1995 Constitutional general appearance Development: well developed 08/14/2018 None Full Exam - General 1995 Constitutional general appearance Development: appears stated age 0208/14/2018 None Full Exam - General 1995 Eyes conjunctiva/eyelids Cornea: corneal scar 08/14/2018 None Full Exam - General 1995 Eyes pupils and irises Pupil: round 08/14/2018 [...] developed 07/26/2018 None Full Exam - General 1995 Constitutional [...] FLU VACC PRSV FREE INC ANTIG CPT-4: 49161 03/27/2017 PPPS, SUBSEQ VISIT CPT- 4: G0439 01/23/2017 URINALYSIS NONAUTO W/O SCOPE CPT-4: 28952 05/17/2016 ADMIN INFLUENZA VIRUS VAC CPT-4: G0008 03/24/2016 FLU VACC PRSV FREE INC ANTIG CPT-4: 69353 03/24/2016 ADMIN PNEUMOCOCCAL VACCINE SNOMED CT: 97220621 CPT-4: G0009 05/13/2015 PNEUMOCOCCAL VACC [address]: 20625080 CPT-4: 52395 05/13/2015 Pneumococcal Polysaccharide Vaccine, 23-Valent, Ad Assigned to/Mela Bledsoe CPT-4: 64982Agqnagt 07/11/2014 ADMIN PNEUMOCOCCAL VACCINE SNOMED CT: 18374629 CPT-4: G0009 07/11/2014 URINALYSIS NONAUTO W/O SCOPE CPT-4: 68788 05/14/2014 URINALYSIS NONAUTO W/O SCOPE CPT-4: 27130 05/06/2014 URINALYSIS NONAUTO W/O SCOPE CPT-4: 40490 04/29/2014 ADMIN INFLUENZA VIRUS VAC CPT-4: G0008 03/20/2014 FLU VAC NO PRSV 4 SCOTT 3 YRS+ Assigned to/Mela Bledsoe CPT-4: [id number] 03/20/2014 URINALYSIS NONAUTO W/O SCOPE CPT-4: 08184 07/29/2013 URINALYSIS NONAUTO W/O SCOPE CPT-4: 75613 07/01/2013 URINALYSIS NONAUTO W/O SCOPE CPT-4: 78965 06/20/2013 ROUTINE VENIPUNCTURE CPT- 4: 81789 05/15/2013 ROUTINE VENIPUNCTURE CPT- 4: 54739 04/23/2013 ADMIN INFLUENZA VIRUS VAC CPT-4: G0008 04/23/2013 FLULAVAL VACC, 3 YRS & >, IM CPT-4: Q2036 04/23/2013 ROUTINE VENIPUNCTURE CPT- 4: 60412 12/17/2012 ROUTINE VENIPUNCTURE CPT- 4: 76015 12/14/2012 ROUTINE VENIPUNCTURE CPT- 4: 72981 12/11/2012 PRESCRIP TRANSMIT VIA ERX SY CPT-4: G8553 12/11/2012 PRESCRIP TRANSMIT VIA ERX SY CPT-4: G8553 10/30/2012 URINALYSIS NONAUTO W/O SCOPE CPT-4: 90035 09/13/2012 ADMIN INFLUENZA VIRUS VAC CPT-4: G0008 04/18/2012 FLULAVAL VACC, 3 YRS & >, IM CPT-4: Q2036 04/18/2012 URINALYSIS NONAUTO W/O SCOPE CPT-4: 19578 03/13/2012 ROUTINE VENIPUNCTURE CPT- 4: 23879 03/08/2012 URINALYSIS NONAUTO W/O SCOPE CPT-4: 29593 02/13/2012 PRESCRIP TRANSMIT VIA ERX SY CPT-4: G8553 02/13/2012 ROCEPHIN, PER 250 MG CPT- 4: J0696 11/23/2011 ROUTINE VENIPUNCTURE CPT- 4: 36488 11/23/2011 URINALYSIS NONAUTO W/O SCOPE CPT-4: 88784 11/23/2011 PRESCRIP TRANSMIT VIA ERX SY CPT-4: G8553 11/23/2011 REMOVE IMPACTED EAR WAX UNI CPT-4: 08318 10/17/2011 PRESCRIP TRANSMIT VIA ERX SY CPT-4: G8553 10/03/2011 PRESCRIP TRANSMIT VIA ERX SY CPT-4: G8553 08/08/2011 URINALYSIS NONAUTO W/O SCOPE CPT-4: 61289 03/15/2011 URINALYSIS NONAUTO W/O SCOPE CPT-4: 28553 03/04/2011 THER/PROPH/DIAG INJ SC/IM CPT-4: 86386 03/04/2011 ROCEPHIN, PER 250 MG CPT- 4: J0696 03/04/2011 Vital Signs Date Vital 12/10/2018 Blood Pressure 1: 120/56 Code: 8480-6 BMI: 19.9 Code: 10679-7 Heart Rate 1: 103 bpm Height: 5' SpO2: 93% Weight: 102 lbs 12/06/2018 Blood Pressure 1: 118/66 Code: 8480-6 BMI: 20.1 Code: 21546-1 Heart Rate 1: 134 bpm Height: 5' SpO2: 98% Weight: 103 lbs 11/30/2018 Blood Pressure 1: 122/64 Code: 8480-6 Height: Weight: 10/31/2018 Blood Pressure 1: 122/66 Code: 8480-6 BMI: 20.5 Code: 06043-1 Heart Rate 1: 83 bpm Height: 5' SpO2: 99% Weight: 105 lbs 10/09/2018 Blood Pressure 1: 126/60 Code: 8480-6 BMI: 19.9 Code: 99817-8 Heart Rate 1: 66 bpm Height: 5' SpO2: 96% Weight: 102 lbs 09/12/2018 Blood Pressure 1: 156/72 Code: 8480-6 BMI: 19.9 Code: 90041-3 Heart Rate 1: 68 bpm Height: 5' Temperature: 36.6 (C) / 97.8 (F) Weight: 102 lbs 08/14/2018 Blood Pressure 1: 136/68 Code: 8480-6 BMI: 21.1 Code: 92241-4 Heart Rate 1: 92 bpm Height: 5' Weight: 108 lbs 07/26/2018 Blood Pressure 1: 128/76 Code: 8480-6 BMI: 21.1 Code: 87543-1 Heart Rate 1: 88 bpm Height: 5' Weight: 108 lbs 06/04/2018 Blood Pressure 1: 124/72 Code: 8480-6 BMI: 21.3 Code: 00281-4 Heart Rate 1: 98 bpm Height: 5' Weight: 109 lbs 01/31/2018 Blood Pressure 1: 116/68 Code: 8480-6 BMI: 21.1 Code: 25174-0 Heart Rate 1: 89 bpm Height: 5' SpO2: 98% Weight: 108 lbs 01/17/2018 Blood Pressure 1: 134/74 Code: 8480-6 BMI: 21.3 Code: 06653-2 Heart Rate 1: 74 bpm Height: 5' SpO2: 96% Waist Measure (cm): 71 cm Weight: 109 lbs 12/14/2017 Blood Pressure 1: 150/78 Code: 8480-6 BMI: 21.5 Code: 91270-5 Heart Rate 1: 77 bpm Height: 5' SpO2: 98% Temperature: 36.7 (C) / 98.1 (F) Weight: 110 lbs 12/07/2017 Blood Pressure 1: 134/70 Code: 8480-6 Heart Rate 1: 76 bpm Height: SpO2: 98% Temperature: 36.8 (C) / 98.2 (F) Weight: 11/14/2017 Blood Pressure 1: 152/84 Code: 8480-6 BMI: 21.9 Code: 86717-4 Heart Rate 1: 95 bpm Height: 5' SpO2: 93% Weight: 112 lbs 03/27/2017 Blood Pressure 1: 122/70 Code: 8480-6 BMI: 21.3 Code: 65995-2 Heart Rate 1: 75 bpm Height: 5' Weight: 109 lbs 01/23/2017 BMI: 21.5 Code: 63473-5 Height: 5' Weight: 110 lbs 01/19/2017 Blood Pressure 1: 112/60 Code: 8480-6 BMI: 21.5 Code: 06337-5 Heart Rate 1: 54 bpm Height: 5' SpO2: 97% Weight: 110 lbs 11/29/2016 Blood Pressure 1: 126/68 Code: 8480-6 Height: 5' Weight: 11/23/2016 Blood Pressure 1: 130/72 Code: 8480-6 BMI: 21.9 Code: 79144-6 Heart Rate 1: 48 bpm Height: 5' SpO2: 97% Temperature: 36.7 (C) / 98.0 (F) Weight: 112 lbs 11/21/2016 Blood Pressure 1: 134/76 Code: 8480-6 BMI: 21.9 Code: 91340-0 Heart Rate 1: 41 bpm Height: 5' SpO2: 94% Temperature: 36.9 (C) / 98.4 (F) Weight: 112 lbs 11/08/2016 Blood Pressure 1: 126/74 Code: 8480-6 Heart Rate 1: 82 bpm Height: 5' SpO2: 94% Weight: 11/02/2016 Blood Pressure 1: 112/66 Code: 8480-6 Heart Rate 1: 72 bpm Height: 5' SpO2: 95% Weight: 10/27/2016 Blood Pressure 1: 130/64 Code: 8480-6 BMI: 21.7 Code: 65709-7 Heart Rate 1: 81 bpm Height: 5' SpO2: 96% Weight: 111 lbs 08/31/2016 Blood Pressure 1: 132/72 Code: 8480-6 BMI: 22.5 Code: 06047-4 Heart Rate 1: 66 bpm Height: 5' Weight: 115 lbs 07/27/2016 Blood Pressure 1: 166/74 Code: 8480-6 BMI: 23.2 Code: 30071-0 Heart Rate 1: 48 bpm Height: 5' SpO2: 90% Temperature: 36.8 (C) / 98.2 (F) Weight: 119 lbs 06/23/2016 Blood Pressure 1: 128/70 Code: 8480-6 BMI: 22.3 Code: 70224-9 Heart Rate 1: 75 bpm Height: 5' SpO2: 97% Weight: 114 lbs 06/09/2016 BMI: 22.7 Code: 75074-3 Heart Rate 1: 73 bpm Height: 5' SpO2: 97% Weight: 116 lbs 05/25/2016 Blood Pressure 1: 138/62 Code: 8480-6 BMI: 22.8 Code: 06082-0 Heart Rate 1: 76 bpm Height: 5' Weight: 117 lbs 05/17/2016 Blood Pressure 1: 116/70 Code: 8480-6 BMI: 22.8 Code: 55704-3 Heart Rate 1: 74 bpm Height: 5' SpO2: 94% Weight: 117 lbs 03/24/2016 Blood Pressure 1: 154/78 Code: 8480-6 BMI: 22.5 Code: 52401-0 Heart Rate 1: 78 bpm Height: 5' SpO2: 97% Weight: 115 lbs 02/02/2016 Blood Pressure 1: 132/70 Code: 8480-6 BMI: 22.3 Code: 76585-5 Heart Rate 1: 74 bpm Height: 5' SpO2: 94% Weight: 114 lbs 2016 Blood Pressure 1: 120/62 Code: 8480-6 BMI: 22.0 Code: 86655-6 Heart Rate 1: 68 bpm Height: 5' Weight: 112 lbs 8 oz 12/21/2015 Blood Pressure 1: 122/82 Code: 8480-6 BMI: 21.9 Code: 06854-8 Heart Rate 1: 83 bpm Height: 5' SpO2: 93% Temperature: 37.1 (C) / 98.7 (F) Weight: 112 lbs 11/03/2015 Blood Pressure 1: 122/72 Code: 8480-6 BMI: 22.4 Code: 57770-9 Heart Rate 1: 62 bpm Height: 5' Weight: 114 lbs 8 oz 10/19/2015 Blood Pressure 1: 138/62 Code: 8480-6 BMI: 21.1 Code: 11518-1 Heart Rate 1: 79 bpm Height: 5' Weight: 108 lbs 10/13/2015 Blood Pressure 1: 120/62 Code: 8480-6 BMI: 21.0 Code: 20826-0 Heart Rate 1: 76 bpm Height: 5' SpO2: 98% Weight: 108 lbs 09/29/2015 Blood Pressure 1: 130/70 Code: 8480-6 BMI: 20.2 Code: 71087-6 Heart Rate 1: 72 bpm Height: 5' Weight: 104 lbs 09/15/2015 Blood Pressure 1: 128/78 Code: 8480-6 BMI: 19.9 Code: 44191-7 Heart Rate 1: 72 bpm Height: 5' Weight: 102 lbs 8 oz 09/01/2015 Blood Pressure 1: 128/68 Code: 8480-6 BMI: 19.8 Code: 77750-8 Height: 5' Weight: 102 lbs 05/26/2015 Blood Pressure 1: 140/68 Code: 8480-6 BMI: 19.0 Code: 02526-6 Heart Rate 1: 70 bpm Height: 5' Weight: 98 lbs 05/21/2015 Blood Pressure 1: 140/78 Code: 8480-6 BMI: 19.2 Code: 95578-5 Heart Rate 1: 85 bpm Height: 5' SpO2: 95% Weight: 99 lbs 05/07/2015 Blood Pressure 1: 140/82 Code: 8480-6 BMI: 19.0 Code: 18621-7 Heart Rate 1: 76 bpm Height: 5' Weight: 98 lbs 03/23/2015 Blood Pressure 1: 142/60 Code: 8480-6 BMI: 18.6 Code: 48637-9 Heart Rate 1: 52 bpm Height: 5' Weight: 96 lbs 03/09/2015 Blood Pressure 1: 138/74 Code: 8480-6 BMI: 18.8 Code: 49357-3 Heart Rate 1: 60 bpm Height: 5' Weight: 97 lbs 10/30/2014 Blood Pressure 1: 112/82 Code: 8480-6 BMI: 19.0 Code: 01656-1 Heart Rate 1: 64 bpm Height: 5' Weight: 98 lbs 07/11/2014 Blood Pressure 1: 146/70 Code: 8480-6 BMI: 18.8 Code: 25454-4 Heart Rate 1: 68 bpm Height: 5' Weight: 97 lbs 05/20/2014 Blood Pressure 1: 142/76 Code: 8480-6 BMI: 18.6 Code: 40914-1 Heart Rate 1: 78 bpm Height: 5' Weight: 96 lbs 04/29/2014 Blood Pressure 1: 138/62 Code: 8480-6 BMI: 18.3 Code: 32747-7 Heart Rate 1: 80 bpm Height: 5' Weight: 94 lbs 8 oz 03/20/2014 Blood Pressure 1: 142/68 Code: 8480-6 BMI: 18.6 Code: 92623-8 Heart Rate 1: 96 bpm Height: 5' Weight: 96 lbs 03/05/2014 Blood Pressure 1: 122/72 Code: 8480-6 BMI: 18.8 Code: 74134-0 Heart Rate 1: 82 bpm Height: 5' SpO2: 97% Weight: 97 lbs 01/29/2014 Blood Pressure 1: 124/78 Code: 8480-6 BMI: 18.8 Code: 81524-1 Heart Rate 1: 60 bpm Height: 5' Weight: 97 lbs 01/14/2014 Blood Pressure 1: 120/58 Code: 8480-6 BMI: 19.2 Code: 72313-9 Heart Rate 1: 56 bpm Height: 5' Temperature: 36.9 (C) / 98.4 (F) Weight: 99 lbs 12/25/2013 Blood Pressure 1: 118/78 Code: 8480-6 BMI: 19.2 Code: 13370-8 Heart Rate 1: 68 bpm Height: 5' Weight: 99 lbs 11/27/2013 Blood Pressure 1: 102/68 Code: 8480-6 BMI: 19.4 Code: 50111-3 Heart Rate 1: 56 bpm Height: 5' Weight: 100 lbs 09/12/2013 Blood Pressure 1: 142/62 Code: 8480-6 BMI: 19.7 Code: 30585-3 Heart Rate 1: 72 bpm Height: 5'1" Weight: 104 lbs 08/15/2013 Blood Pressure 1: 152/92 Code: 8480-6 Heart Rate 1: 96 bpm Weight: 102 lbs 08/01/2013 Blood Pressure 1: 122/68 Code: 8480-6 BMI: 19.1 Code: 46414-4 Heart Rate 1: 68 bpm Height: 5'1" Weight: 101 lbs 07/01/2013 Blood Pressure 1: 130/72 Code: 8480-6 BMI: 19.5 Code: 64381-3 Heart Rate 1: 80 bpm Height: 5'1" Temperature: 36.1 (C) / 97.0 (F) Weight: 103 lbs 05/29/2013 Blood Pressure 1: 126/72 Code: 8480-6 BMI: 19.3 Code: 68512-4 Heart Rate 1: 80 bpm Height: 5'1" Weight: 102 lbs 05/15/2013 Blood Pressure 1: 156/74 Code: 8480-6 BMI: 19.3 Code: 01034-2 Heart Rate 1: 88 bpm Height: 5'1" Weight: 102 lbs 04/23/2013 Blood Pressure 1: 140/82 Code: 8480-6 BMI: 19.3 Code: 55141-1 Heart Rate 1: 72 bpm Height: 5'1" Weight: 102 lbs 03/21/2013 Blood Pressure 1: 142/74 Code: 8480-6 Heart Rate 1: 92 bpm Weight: 103 lbs 01/16/2013 Blood Pressure 1: 120/56 Code: 8480-6 BMI: 20.0 Code: 46352-5 Heart Rate 1: 72 bpm Height: 5'1" Weight: 106 lbs 12/19/2012 Blood Pressure 1: 118/66 Code: 8480-6 Heart Rate 1: 84 bpm Weight: 12/10/2012 Blood Pressure 1: 132/62 Code: 8480-6 Heart Rate 1: 64 bpm Weight: 103 lbs 10/30/2012 Blood Pressure 1: 122/66 Code: 8480-6 BMI: 19.9 Code: 86141-9 Heart Rate 1: 61 bpm Height: 5'1" [...] 1: 118/72 Code: 8480-6 BMI: 21.0 Code: 33897-1 Heart Rate 1: 66 bpm Height: 5'1" Respiratory Rate: 16 bpm Weight: 111 lbs 2012 Blood Pressure 1: 122/62 Code: 8480-6 Heart Rate 1: 68 bpm Weight: 110 lbs 12/01/2011 Blood Pressure 1: 150/60 Code: 8480-6 BMI: 20.8 Code: 99005-7 Heart Rate 1: 60 bpm Height: 5'1" Respiratory Rate: 16 bpm Weight: 110 lbs 11/23/2011 Blood Pressure 1: 170/68 Code: 8480-6 BMI: 21.1 Code: 53830-9 Heart Rate 1: 64 bpm Height: 5'1" Temperature: 36.3 (C) / 97.3 (F) Weight: 111 lbs 8 oz 10/17/2011 Blood Pressure 1: 148/62 Code: 8480-6 Heart Rate 1: 74 bpm 10/03/2011 Blood Pressure 1: 102/48 Code: 8480-6 BMI: 21.4 Code: 44676-5 Heart Rate 1: 76 bpm Height: 5'1" Respiratory Rate: 16 bpm Weight: 113 lbs 08/08/2011 Blood Pressure 1: 128/60 Code: 8480-6 Heart Rate 1: 80 bpm Respiratory Rate: 16 bpm Weight: 113 lbs 05/09/2011 Blood Pressure 1: 130/62 Code: 8480-6 BMI: 20.7 Code: 41984-7 Heart Rate 1: 64 bpm Height: 5'1" Respiratory Rate: 16 bpm Weight: 109 lbs 8 oz 03/29/2011 Blood Pressure 1: 120/62 Code: 8480-6 BMI: 20.2 Code: 33430-8 Heart Rate 1: 66 bpm Height: 5'1" Respiratory Rate: 12 bpm Weight: 107 lbs 03/15/2011 Blood Pressure 1: 120/64 Code: 8480-6 BMI: 19.8 Code: 40605-5 Heart Rate 1: 76 bpm Height: 5'1" [...] contacts 03/20/2014 sat next to neighbor in [place] who had tonsillitis sore throat Pertinent Findings [...] data Encounters Encounter Performer Location Codes Date ([id number]) Miscellaneous no charge Diagnosis: Hypo-osmolality and hyponatremia[ICD10: E87.1] Diagnosis: Paroxysmal atrial fibrillation[ICD10: I48.0] Diagnosis: Muscle weakness (generalized)[ICD10: M62.81] Diagnosis: Major depressive disorder, recurrent, mild[ICD10: F33.0] Karma Bahena MD, [facility] CPT-4: 02874 12/10/2018 ([id number]) 21182 EST. PATIENT, LEVEL III Diagnosis: Chronic atrial fibrillation[ICD10: I48.2] Diagnosis: Cough[ICD10: R05] Laura Bahena MD, [facility] CPT-4: 21043 12/06/2018 ([id number]) 13257 EST. PATIENT, LEVEL III Diagnosis: Acute laryngopharyngitis[ICD10: J06.0] Laura Bahena MD, [facility] CPT-4: 02986 11/30/2018 ([id number]) 90139 EST. 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 PATIENT, LEVEL III Diagnosis: Raynaud's syndrome without gangrene[ICD10: I73.00] Diagnosis: Pain in left hand[ICD10: M79.642] Diagnosis: Pain in right hand[ICD10: M79.641] Karma Bahena MD, [facility] CPT- 4: 12341 10/09/2018 [id number] EST. PATIENT, LEVEL III Diagnosis: Cough[ICD10: R05] Diagnosis: Acute laryngopharyngitis[ICD10: J06.0] Diagnosis: Other allergic rhinitis[ICD10: J30.89] Diagnosis: Raynaud's syndrome without gangrene[ICD10: I73.00] Katharine Bahena MD, [facility] CPT-4: 65530 09/12/2018 ([id number]) 98743 EST. PATIENT, LEVEL IV Diagnosis: Raynaud's syndrome without gangrene[ICD10: I73.00] Diagnosis: Pain in right toe(s)[ICD10: M79.674] Diagnosis: Chronic atrial fibrillation[ICD10: I48.2] Karma Bahena MD, [facility] CPT-4: 22540 08/14/2018 ([id number]) 42229 EST. PATIENT, LEVEL IV Diagnosis: Chronic atrial fibrillation[ICD10: I48.2] Diagnosis: Sebaceous cyst[ICD10: L72.3] Diagnosis: Raynaud's syndrome without gangrene[ICD10: I73.00] Karma Bahena MD [facility] CPT-4: 96743 07/26/2018 ([id number]) 43638 EST. PATIENT, LEVEL IV Diagnosis: Essential (primary) hypertension[ICD10: I10] Diagnosis: Atrophy of thyroid (acquired)[ICD10: E03.4] Diagnosis: Gastro-esophageal reflux disease without esophagitis[ICD10: K21.9] Karma Bahena MD [facility] CPT-4: 23272 06/04/2018 ([id number]) 31827 EST. PATIENT, LEVEL IV Diagnosis: Essential (primary) hypertension[ICD10: I10] Diagnosis: Atrophy of thyroid (acquired)[ICD10: E03.4] Diagnosis: Other long-term (current) drug therapy[ICD10: Z79.899] Karma Bahena MD, [facility] CPT-4: 55445 01/31/2018 ([id number]) 97618 EST. PATIENT, LEVEL IV Diagnosis: Essential (primary) hypertension[ICD10: I10] Diagnosis: Chronic atrial fibrillation[ICD10: I48.2] Diagnosis: Allergic rhinitis due to pollen[ICD10: J30.1] Diagnosis: Cough[ICD10: R05] Karma Bahena MD [facility] CPT-4: 35816 12/14/2017 39734 EST. PATIENT, LEVEL IV Diagnosis: Other allergic rhinitis[ICD10: J30.89] Katharine Bahena MD, [facility] CPT- 4: 70689 12/07/2017 ([id number]) 60036 EST. PATIENT, LEVEL IV Diagnosis: Essential (primary) hypertension[ICD10: I10] Diagnosis: Chronic atrial fibrillation[ICD10: I48.2] Diagnosis: Atrophy of thyroid (acquired)[ICD10: E03.4] Karma Bahena MD, [facility] CPT-4: 51739 11/14/2017 ([id number]) 64955 EST. PATIENT, LEVEL IV Diagnosis: Essential (primary) hypertension[ICD10: I10] Diagnosis: Localized edema[ICD10: R60.0] Diagnosis: Encounter for immunization[ICD10: Z23] Diagnosis: Age-related osteoporosis without current pathological fracture[ICD10: M81.0] Karma Bahena MD, [facility] CPT-4: 41263 03/27/2017 ([id number]) 33430 EST. PATIENT, LEVEL IV Diagnosis: Essential (primary) hypertension[ICD10: I10] Diagnosis: Chronic atrial fibrillation[ICD10: I48.2] Diagnosis: Dysphonia[ICD10: R49.0] Karma Bahena MD, [facility] CPT-4: 02037 01/19/2017 ([id number]) Miscellaneous no charge Diagnosis: Cough[ICD10: R05] Diagnosis: Acute upper respiratory infection, unspecified[ICD10: J06.9] Laura Bahena MD, [facility] CPT-4: 35421 11/29/2016 59231 EST. PATIENT, LEVEL III Diagnosis: Cough[ICD10: R05] Diagnosis: Acute laryngopharyngitis[ICD10: J06.0] Katharine Bahena MD, [facility] CPT- 4: 75722 11/23/2016 ([id number]) 24194 EST. PATIENT, LEVEL III Diagnosis: Acute laryngopharyngitis[ICD10: J06.0] Laura Bahena MD, [facility] CPT-4: 83334 11/21/2016 ([id number]) Miscellaneous no charge Diagnosis: Laceration without foreign body of right forearm, subsequent encounter[ICD10: S51.811D] Karma Bahena MD, [facility] CPT-4: 62271 11/17/2016 ([id number]) Miscellaneous no charge Diagnosis: Laceration without foreign body of right forearm, subsequent encounter[ICD10: S51.811D] Karma Bahena MD [facility] CPT-4: 67248 11/14/2016 ([id number]) Miscellaneous no charge Diagnosis: Laceration without foreign body of right forearm, subsequent encounter[ICD10: S51.811D] Karma Bahena MD [facility] CPT-4: 43462 11/11/2016 ([id number]) Miscellaneous no charge Diagnosis: Laceration without foreign body of right forearm, subsequent encounter[ICD10: S51.811D] Karma Bahena MD [facility] CPT-4: 21592 11/10/2016 ([id number]) 99068 EST. PATIENT, LEVEL II Diagnosis: Laceration without foreign body of right forearm, subsequent encounter[ICD10: S51.811D] Karma Bahena MD [facility] CPT-4: 12494 11/08/2016 ([id number]) 60700 EST. PATIENT, LEVEL IV Diagnosis: Atrophy of thyroid (acquired)[ICD10: E03.4] Diagnosis: Chronic atrial fibrillation[ICD10: I48.2] Diagnosis: Laceration without foreign body of right forearm, subsequent encounter[ICD10: S51.811D] Karma Bahena MD [facility] CPT-4: 83139 11/02/2016 ([id number]) 60513 EST. PATIENT, LEVEL III Diagnosis: Laceration without foreign body of right forearm, initial encounter[ICD10: S51.811A] Laura Bahena MD [facility] CPT-4: 13075 10/27/2016 ([id number]) 52281 EST. PATIENT, LEVEL IV Diagnosis: Essential (primary) hypertension[ICD10: I10] Diagnosis: Chronic atrial fibrillation[ICD10: I48.2] Karma Bahena MD [facility] CPT-4: 94509 08/31/2016 ([id number]) 38261 EST. PATIENT, LEVEL IV Diagnosis: Localized edema[ICD10: R60.0] Diagnosis: Essential (primary) hypertension[ICD10: I10] Diagnosis: Abdominal distension (gaseous)[ICD10: R14.0] Karma Bahena MD, [facility] CPT-4: 56544 07/27/2016 ([id number]) 16413 EST. PATIENT, LEVEL IV Diagnosis: Essential (primary) hypertension[ICD10: I10] Diagnosis: Chronic atrial fibrillation[ICD10: I48.2] Diagnosis: Localized edema[ICD10: R60.0] Karma Bahena MD [facility] CPT-4: 04140 06/23/2016 ([id number]) 03682 EST. PATIENT, LEVEL III Diagnosis: Localized edema[ICD10: R60.0] Karma Bahena MD [facility] CPT-4: 14235 06/09/2016 ([id number]) 91063 EST. PATIENT, LEVEL III Diagnosis: Irritable bowel syndrome without diarrhea[ICD10: K58.9] Diagnosis: Pruritus ani[ICD10: L29.0] Karma Bahena MD [facility] CPT-4: 75432 05/25/2016 ([id number]) 60615 EST. PATIENT, LEVEL III Diagnosis: Abdominal distension (gaseous)[ICD10: R14.0] Diagnosis: Encounter for screening mammogram for malignant neoplasm of breast[ICD10: Z12.31] Karma Bahena MD [facility] CPT-4: 05464 05/17/2016 ([id number]) 95295 EST. PATIENT, LEVEL IV Diagnosis: Essential (primary) hypertension[ICD10: I10] Diagnosis: First degree hemorrhoids[ICD10: K64.0] Diagnosis: Encounter for immunization[ICD10: Z23] Karma Bahena MD [facility] CPT-4: 49440 03/24/2016 ([id number]) 85852 EST. PATIENT, LEVEL III Diagnosis: Epidermal cyst[ICD10: L72.0] Diagnosis: Essential (primary) hypertension[ICD10: I10] Diagnosis: Chronic atrial fibrillation[ICD10: I48.2] Diagnosis: Other long-term (current) drug therapy[ICD10: Z79.899] Kamra Bahena MD, [facility] CPT-4: 65721 02/02/2016 ([id number]) 96565 EST. PATIENT, LEVEL III Diagnosis: Acute anal fissure[ICD10: K60.0] Karma Bahena MD, [facility] CPT-4: 59092 2016 ([id number]) 03462 EST. PATIENT, LEVEL III Diagnosis: Allergic rhinitis due to pollen[ICD10: J30.1] Diagnosis: Acute upper respiratory infection, unspecified[ICD10: J06.9] Laura Bahena MD, [facility] CPT-4: 85290 12/21/2015 ([id number]) 17114 EST. PATIENT, LEVEL III Diagnosis: Essential (primary) hypertension[ICD10: I10] Diagnosis: Chronic atrial fibrillation[ICD10: I48.2] Karma Bahena MD, [facility] CPT-4: 41148 11/03/2015 ([id number]) Miscellaneous no charge Diagnosis: Impacted cerumen, right ear[ICD10: H61.21] Katharine Bahena MD, [facility] CPT-4: 06107 10/19/2015 77258 EST. PATIENT, LEVEL IV Diagnosis: Impacted cerumen, right ear[ICD10: H61.21] Diagnosis: Other allergic rhinitis[ICD10: J30.89] Katharine Bahena MD, [facility] CPT- 4: 36233 10/13/2015 ([id number]) 62351 EST. PATIENT, LEVEL IV Diagnosis: Essential (primary) hypertension[ICD10: I10] Diagnosis: Chronic atrial fibrillation[ICD10: I48.2] Diagnosis: Urge incontinence[ICD10: N39.41] Diagnosis: Age-related osteoporosis without current pathological fracture[ICD10: M81.0] Karma Bahena MD, [facility] CPT-4: 83180 09/29/2015 ([id number]) 92911 EST. PATIENT, LEVEL IV Diagnosis: Essential (primary) hypertension[ICD10: I10] Diagnosis: Chronic atrial fibrillation[ICD10: I48.2] Diagnosis: Irritable bowel syndrome without diarrhea[ICD10: K58.9] Diagnosis: Unspecified hemorrhoids[ICD10: K64.9] Karma Bahena MD, [facility] CPT-4: 87023 09/15/2015 ([id number]) 13044 EST. 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 PATIENT, LEVEL III Diagnosis: Hematuria, unspecified[ICD10: R31.9] Diagnosis: Other urethritis[ICD10: N34.2] Diagnosis: Other specified noninflammatory disorders of vagina[ICD10: N89.8] Karma Bahena MD, [facility] CPT-4: 11609 05/26/2015 89662 EST. PATIENT, LEVEL IV Diagnosis: Gout, unspecified[ICD10: M10.9] Karma Bahena MD, [facility] CPT-4: 40549 05/21/2015 ([id number]) 37462 EST. PATIENT, LEVEL IV Diagnosis: Chronic atrial fibrillation[ICD10: I48.2] Diagnosis: Irritable bowel syndrome without diarrhea[ICD10: K58.9] Diagnosis: Cystocele, unspecified[ICD10: N81.10] Diagnosis: Urge incontinence[ICD10: N39.41] Diagnosis: Fecal smearing[ICD10: R15.1] Diagnosis: Hypothyroidism, unspecified[ICD10: E03.9] Karma Bahena MD, [facility] CPT-4: 63140 05/07/2015 ([id number]) 88552 EST. PATIENT, LEVEL III Diagnosis: Atrial fibrillation[ICD9: 427.31] Diagnosis: Bloating[ICD9: 787.3] Karma Bahena MD, [facility] CPT-4: 75330 03/23/2015 ([id number]) 33236 EST. PATIENT, LEVEL IV Diagnosis: Abdominal pain[ICD9: 789.00] Diagnosis: Atrial fibrillation[ICD9: 427.31] Diagnosis: ENCNTR LONG-ANTICOAG USE[ICD9: V58.61] Karma Bahena MD, [facility] CPT-4: 03754 03/09/2015 ([id number]) 83275 EST. PATIENT, LEVEL IV Diagnosis: HEMATURIA NOS[ICD9: 599.70] Diagnosis: Atrial fibrillation[ICD9: 427.31] Diagnosis: HYPOTHYROIDISM[ICD9: 244.9] Karma Bahena MD, [facility] CPT-4: 22286 10/30/2014 ([id number]) 76445 EST. PATIENT, LEVEL IV Diagnosis: Atrial fibrillation[ICD9: 427.31] Diagnosis: ALLERGIC RHINITIS[ICD9: 477.9] Diagnosis: Need for pneumococcal vaccine[ICD9: V03.82] Diagnosis: Osteoarthritis[ICD9: 715.90] Diagnosis: Osteoporosis[ICD9: 733.00] Karma Bahena MD, [facility] CPT-4: 72610 07/11/2014 ([id number]) 97226 EST. PATIENT, LEVEL III Diagnosis: Urge incontinence[ICD9: 788.31] Diagnosis: Dysuria[ICD9: 788.1] Karma Bahena MD, [facility] CPT-4: 96812 05/20/2014 ([id number]) 38812 EST. PATIENT, LEVEL IV Diagnosis: Atrial fibrillation[ICD9: 427.31] Diagnosis: Hematuria[ICD9: 599.70] Diagnosis: Dysuria[ICD9: 788.1] Diagnosis: ESSENTIAL HYPERTENSION[ICD9: 401.9] Karma Bahena MD [facility] CPT- 4: 47136 04/29/2014 ([id number]) 91022 EST. PATIENT, LEVEL IV Diagnosis: ESSENTIAL HYPERTENSION[ICD9: 401.9] Diagnosis: ALLERGIC RHINITIS[ICD9: 477.9] Karma Bahena MD [facility] CPT-4: 83225 03/20/2014 ([id number]) 97640 EST. PATIENT, LEVEL IV Diagnosis: ESSENTIAL HYPERTENSION[ICD9: 401.9] Diagnosis: ATRIAL FIBRILLATION[ICD9: 427.31] Diagnosis: Irritable bowel[ICD9: 564.1] Karma Bahena MD, [facility] CPT-4: 97339 03/05/2014 ([id number]) 19830 EST. PATIENT, LEVEL IV Diagnosis: Esophageal reflux[ICD9: 530.81] Diagnosis: DIARRHEA[ICD9: 787.91] Diagnosis: ABDOM PAIN NOS SITE[ICD9: 789.00] Karma Bahena MD, [facility] CPT- 4: 47363 01/29/2014 ([id number]) 98660 EST. PATIENT, LEVEL III Diagnosis: Irritable bowel[ICD9: 564.1] Diagnosis: DIARRHEA[ICD9: 787.91] Laura Bahena MD [facility] CPT-4: 38958 01/14/2014 ([id number]) 39905 EST. PATIENT, LEVEL IV Diagnosis: ESSENTIAL HYPERTENSION[ICD9: 401.9] Diagnosis: ATRIAL FIBRILLATION[ICD9: 427.31] Diagnosis: URGE INCONTINENCE[ICD9: 788.31] Diagnosis: MALAISE AND FATIGUE[ICD9: 780.79] Diagnosis: Dyspnea[ICD9: 786.09] Karma Bahena MD [facility] CPT-4: 45570 12/25/2013 ([id number]) 05856 EST. PATIENT, LEVEL IV Diagnosis: ESSENTIAL HYPERTENSION[SNOMED: 60845593] Diagnosis: ATRIAL FIBRILLATION[ICD9: 427.31] Diagnosis: Abdominal pain[ICD9: 789.00] Diagnosis: ESOPHAGEAL REFLUX[ICD9: 530.81] Karma Bahena MD [facility] CPT-4: 14496 11/27/2013 ([id number]) 60723 EST. PATIENT, LEVEL IV Diagnosis: ESSENTIAL HYPERTENSION[SNOMED: 61674162] Diagnosis: ATRIAL FIBRILLATION[ICD9: 427.31] Diagnosis: Chronic osteoarthritis[ICD9: 715.90] Karma Bahena MD [facility] CPT- 4: 73532 09/12/2013 ([id number]) 13827 EST. PATIENT, LEVEL III Diagnosis: ESSENTIAL HYPERTENSION[SNOMED: 28780486] Diagnosis: Bruising[ICD9: 924.9] Diagnosis: ENCNTR LONG-RX USE NEC[ICD9: V58.69] Karma Bahena MD, [facility] CPT- 4: 72517 08/15/2013 ([id number]) 51576 EST. PATIENT, LEVEL IV Diagnosis: ESSENTIAL HYPERTENSION[SNOMED: 52802897] Diagnosis: Hematuria[ICD9: 599.70] Diagnosis: Dysuria[ICD9: 788.1] Karma Bahena MD, [facility] CPT-4: 10298 08/01/2013 ([id number]) 12068 EST. PATIENT, LEVEL III Diagnosis: UTI[ICD9: 599.0] Diagnosis: Hematuria[ICD9: 599.70] Laura Bahena MD [facility] CPT-4: 52948 07/01/2013 ([id number]) 61193 EST. PATIENT, LEVEL III Diagnosis: ATRIAL FIBRILLATION[ICD9: 427.31] Diagnosis: ESSENTIAL HYPERTENSION[SNOMED: 65863893] PARVEEN Freitas MD CPT-4: 71429 05/29/2013 ([id number]) 55214 EST. PATIENT, LEVEL IV Diagnosis: Atrial fibrillation[ICD9: 427.31] Diagnosis: Encounter for monitoring digoxin therapy[ICD9: V58.83] Diagnosis: ESSENTIAL HYPERTENSION[SNOMED: 04780708] Karma Bahena MD [facility] CPT-4: 64325 05/15/2013 ([id number]) 16153 EST. PATIENT, LEVEL IV Diagnosis: ESSENTIAL HYPERTENSION[SNOMED: 48977407] Diagnosis: ATRIAL FIBRILLATION[ICD9: 427.31] Diagnosis: PALPITATIONS[ICD9: 785.1] Diagnosis: Dizziness and giddiness[ICD9: 780.4] Karma Bahena MD [facility] CPT- 4: 33363 04/23/2013 ([id number]) 57213 EST. PATIENT, LEVEL III Diagnosis: OTHER CONSTIPATION[ICD9: 564.09] Diagnosis: ABDOM PAIN NOS SITE[ICD9: 789.00] Laura Bahena MD [facility] CPT- 4: 58650 03/21/2013 ([id number]) 85045 EST. PATIENT, LEVEL IV Diagnosis: ESSENTIAL HYPERTENSION[SNOMED: 92972771] Diagnosis: Atrial fibrillation[ICD9: 427.31] Karma Bahena MD [facility] CPT- 4: 71191 01/16/2013 ([id number]) Miscellaneous no charge Diagnosis: CELLULITIS OF HAND[ICD9: 682.4] [facility] CPT-4: 48567 12/19/2012 ([id number]) Miscellaneous no charge Diagnosis: ENCOUNTER FOR THERAPEUTIC DRUG MONITORING[ICD9: V58.83] Diagnosis: CELLULITIS OF HAND[ICD9: 682.4] Karma Bahena MD [facility] CPT-4: 81026 12/14/2012 Miscellaneous no charge Diagnosis: CELLULITIS OF HAND[ICD9: 682.4] Karma Bahena MD [facility] [facility] CPT-4: 80284 12/12/2012 [id number] EST. PATIENT, LEVEL II Diagnosis: CELLULITIS OF HAND[ICD9: 682.4] Diagnosis: ENCNTR LONG-RX USE NEC[ICD9: V58.69] Diagnosis: LONG-TERM USE ANTICOAGUL[ICD9: V58.61] Karma Bahena MD [facility] CPT-4: 64538 12/11/2012 ([id number]) 76575 EST. PATIENT, LEVEL III Diagnosis: CELLULITIS OF HAND[ICD9: 682.4] Karma Bahena MD [facility] CPT-4: 23922 12/10/2012 ([id number]) 25378 EST. PATIENT, LEVEL IV Diagnosis: Elevated digoxin level[ICD9: 796.0] Diagnosis: ATRIAL FIBRILLATION[ICD9: 427.31] Diagnosis: Inflammatory arthritis[ICD9: 714.9] Karma Bahena MD, [facility] CPT- 4: 70460 10/30/2012 ([id number]) 18706 EST. PATIENT, LEVEL IV Diagnosis: Atrial fibrillation[ICD9: 427.31] Diagnosis: Anticoagulant long-term use[ICD9: V58.61] Diagnosis: ESSENTIAL HYPERTENSION[SNOMED: 42614567] [facility] CPT-4: 58666 08/08/2012 ([id number]) 92031 EST. PATIENT, LEVEL IV Diagnosis: ABDOM PAIN NOS SITE[ICD9: 789.00] Diagnosis: Constipation - functional[ICD9: 564.09] Diagnosis: EDEMA[ICD9: 782.3] Diagnosis: ATRIAL FIBRILLATION[ICD9: 427.31] [facility] CPT- 4: 22018 07/11/2012 ([id number]) 31732 EST. PATIENT, LEVEL III Diagnosis: Cystocele[ICD9: 618.01] Diagnosis: Rectocele[ICD9: 618.04] [facility] CPT-4: 74331 05/08/2012 ([id number]) 84929 EST. PATIENT, LEVEL IV Diagnosis: Atrial fibrillation[ICD9: 427.31] Diagnosis: ESSENTIAL HYPERTENSION[SNOMED: 96480538] Diagnosis: Status post small bowel resection[ICD9: V45.89] Diagnosis: ENCNTR LONG-ANTICOAG USE[ICD9: V58.61] Karma Bahena MD, [facility] CPT-4: 67510 04/18/2012 ([id number]) Patient admitted to the hospital from clinic (NO CHARGE) Diagnosis: Abdominal pain[ICD9: 789.00] Diagnosis: Nausea and vomiting[ICD9: 787.01] Diagnosis: ESSENTIAL HYPERTENSION[SNOMED: 07386940] Karma Bahena MD, [facility] CPT-4: 18106Q 03/13/2012 ([id number]) 37822 EST. PATIENT, LEVEL IV Diagnosis: ATRIAL FIBRILLATION[ICD9: 427.31] Diagnosis: URGE INCONTINENCE[ICD9: 788.31] Diagnosis: MALAISE AND FATIGUE[ICD9: 780.79] Diagnosis: Dyspnea[ICD9: 786.09] Karam Bahena MD [facility] CPT-4: 69070 02/20/2012 20529 EST. PATIENT, LEVEL IV Diagnosis: Hematuria[ICD9: 599.70] Diagnosis: Vaginal yeast infection[ICD9: 112.1] Diagnosis: ATRIAL FIBRILLATION[ICD9: 427.31] Laura Bahena MD, [facility] CPT- 4: 23549 02/13/2012 ([id number]) 51303 EST. PATIENT, LEVEL IV Diagnosis: Atrial fibrillation[ICD9: 427.31] Diagnosis: Anticoagulation goal of INR 2 to 3[ICD9: V58.83] Diagnosis: Urinary incontinence, urge[ICD9: 788.31] Diagnosis: ESSENTIAL HYPERTENSION[SNOMED: 15959634] Karma Bahena MD, [facility] CPT-4: 31803 02/01/2012 ([id number]) 53323 EST. PATIENT, LEVEL IV Diagnosis: Atrial fibrillation[ICD9: 427.31] Diagnosis: Anticoagulant long-term use[ICD9: V58.61] Diagnosis: ESSENTIAL HYPERTENSION[SNOMED: 76036632] Karma Bahena MD, [facility] CPT-4: 70408 2012 81394 EST. PATIENT, LEVEL IV Diagnosis: UTI[ICD9: 599.0] Diagnosis: ESSENTIAL HYPERTENSION[SNOMED: 41893876] Diagnosis: MALAISE AND FATIGUE[ICD9: 780.79] Diagnosis: Esophageal reflux[ICD9: 530.81] Karma Bahena MD, [facility] CPT-4: 84777 12/01/2011 ([id number]) 09421 EST. PATIENT, LEVEL IV Diagnosis: UTI (urinary tract infection)[ICD9: 599.0] Diagnosis: ESSENTIAL HYPERTENSION[SNOMED: 54530140] Diagnosis: URGE INCONTINENCE[ICD9: 788.31] Karma Bahena MD, [facility] CPT-4: 64147 11/23/2011 ([id number]) 65085 EST. PATIENT, LEVEL IV Diagnosis: ESSENTIAL HYPERTENSION[SNOMED: 66498774] Diagnosis: IMPACTED CERUMEN[ICD9: 380.4] Diagnosis: MALAISE AND FATIGUE[ICD9: 780.79] Diagnosis: EDEMA[ICD9: 782.3] Karma Bahena MD, [facility] CPT-4: 54881 10/03/2011 64444 EST. PATIENT, LEVEL IV Diagnosis: ESSENTIAL HYPERTENSION[SNOMED: 85643737] Diagnosis: Generalized osteoarthritis[ICD9: 715.09] Diagnosis: OSTEOPOROSIS[ICD9: 733.00] Karma Bahena MD, [facility] CPT-4: 12973 08/08/2011 21803 EST. PATIENT, LEVEL IV Diagnosis: Muscle cramp[ICD9: 729.82] Diagnosis: Torticollis[ICD9: 723.5] Diagnosis: Rash[ICD9: 782.1] Karma Bahena MD, [facility] CPT-4: 71389 05/09/2011 81055 EST. PATIENT, LEVEL IV Diagnosis: Leg cramps, sleep related[ICD9: 327.52] Diagnosis: Underweight[ICD9: 783.22] Karma Bahena MD, [facility] CPT-4: 75890 03/29/2011 68240 EST. PATIENT, LEVEL IV Diagnosis: UTI[ICD9: 599.0] Diagnosis: Urge incontinence[ICD9: 788.31] Diagnosis: Loss of weight[ICD9: 783.21] Diagnosis: Palpitations[ICD9: 785.1] Diagnosis: Peripheral neuropathy, idiopathic[ICD9: 356.9] [facility] CPT-4: 86558 03/15/2011 Plan of Care Planned Activity Notes Codes Status Date Visit Plan: Afib -hyponatremia -generalized weakness -Dr Bahena in to evaluate patient -plan to admit for further evaluation and treatment - will repeat labs -start IVF-monitor with telemetry and consult Dr Rock Depression -restart lexapro 5mg daily 12/10/2018 Patient Education: Patient Medication Summary Completed [...] to monitor 12/06/2018 Appointment: Laura Colin WPtel: [address] [place], [place] [phone] [place] [address] (15 min) Moderate 12/06/2018 Patient Education: Patient Medication Summary Completed 12/06/2018 Visit Plan: Pharyngitis-Discussed natural and expected course of this diagnosis and need to alert me if symptoms do not follow expected course, or if any worse. Recommended salt water gargles as needed for pain. Ty lenol/motrin as needed for fever/discomfort. 11/30/2018 Appointment: Laura Colin WPtel: [address] [place], [place] [phone] (30 min) Complex 11/30/2018 Patient Education: Patient Medication Summary Completed 11/30/2018 Appointment: Karma Bahena WPtel: [address] [place], [place] [phone] (15 min) Moderate 11/14/2018 Visit Plan: Hypothyroidism [...] imvexxy 10/31/2018 Appointment: Karma Bahena WPtel: [phone] (15 min) Moderate 10/31/2018 Patient Education: Patient Medication Summary Completed 10/31/2018 Visit Plan: Hand pain with arthritis - Raynaud syndrome - discussed with pt - RX for Voltaren gel sent to the pharmacy. continue with amlodipine. 10/09/2018 Appointment: Karma Bahena WPtel: [facility] (15 min) Moderate 10/09/2018 Patient Education: Patient Medication Summary Completed 10/09/2018 Appointment: Karma Bahena WPtel: [address] (15 min) Moderate 10/01/2018 Visit Plan: URI [...] concerns. 09/12/2018 Appointment: Katharine Dai WPtel: [phone] [place] [phone] [place] (15 min) Moderate 09/12/2018 Patient Education: Patient Medication Summary Completed 09/12/2018 Appointment: [phone] [facility] (15 min) Moderate 08/16/2018 Visit Plan: I [...] removed. 08/14/2018 Appointment: Karma Bahena WPtel: [facility]5 [facility] [place] (15 min) Moderate 08/14/2018 Patient Education: [...] surgically removed. 07/26/2018 Appointment: Karma Bahena WPtel: [facility]5 [facility] [place] (15 min) Moderate 07/26/2018 Patient Education: [...] not improving. 06/04/2018 Appointment: Karma Bahena WPtel: [facility]5 [facility] (15 min) Moderate 06/04/2018 Patient Education: Patient Medication Summary Completed 06/04/2018 Appointment: Karma Bahena WPtel: [phone] [facility]6[address] (15 min) Moderate 03/14/2018 Visit Plan: Hypertension [...] q 3 months or q 6 m [facility] based on previous levels of control. 01/31/2018 Appointment: Katharine Dai WPtel: [phone] [facility] [place] [address] - Annual Wellness Visit 01/31/2018 Patient Education: [...] allergy spray. 12/14/2017 Appointment: Karma Bahena WPtel: [address] [place], [place] [address] (15 min) Moderate 12/14/2017 Patient Education: Patient [...] allergy spray. 12/07/2017 Appointment: Katharine Dai WPtel: [address] [place], [place] [phone] (15 min) Moderate 12/07/2017 [...] q 3 months or q 6 m [facility] based on previous levels of control. 11/14/2017 Appointment: Karma Bahena WPtel: [address] [place], [place] [phone] (15 min) Moderate 11/14/2017 Patient Education: Patient [...] shot today. 03/27/2017 Appointment: Kar[facility] Bahena WPtel: [phone] [facility] (15 min) Moderate 03/27/2017 Patient [...] surrogate. 01/23/2017 Appointment: Kath[facility]el[facility] [phone] [facility] [facility] - Annual Wellness Visit 01/23/2017 Patient [...] becoming uncontrolled. 01/19/2017 Appointment: Karma Bahena WPtel: [phone] [facility] (15 min) Moderate 01/19/2017 Patient Education: Patient Medication Summary Completed 01/19/2017 Care Plan: Referral Order SNOMED-CT : 359248593 Pending 01/19/2017 Appointment: Karma Bahena WPtel: [phone] [facility] (15 min) Moderate 01/04/2017 Appointment: Karma Bahena WPtel: [phone] [facility]6[address] (15 min) Moderate 12/28/2016 Visit Plan: MTK-awdfm-umg zpack-call if symptoms do not resolve or if any worse. Patient verbalized understanding of plan. 11/29/2016 Appointment: Laura Colin WPtel: [phone] [phone] [place] (15 min) Moderate 11/29/2016 Patient [...] pharmacy. 11/23/2016 Appointment: Katharine Dai WPtel: [facility]1 [facility] [place] (15 min) Moderate 11/23/2016 Patient Education: Patient Medication Summary Completed 11/23/2016 Visit Plan: Pharyngitis-Discussed natural and expected course of this diagnosis and need to alert me if symptoms do not follow expected course, or if any worse. Recommended salt water gargles as needed for pain. Ty lenol/motrin as needed for fever/discomfort. 11/21/2016 Appointment: Laura Colin WPtel: [phone] [phone] [place] (15 min) Moderate 11/21/2016 Patient [...] symptoms. 11/08/2016 Appointment: Karma Bahena WPtel: [phone] [facility] (10 min) Simple 11/08/2016 Patient Education: Patient [...] etc. 11/02/2016 Appointment: Karma Bahena WPtel: [facility]5 [facility] (15 min) Moderate 11/02/2016 Appointment: Nurse Visit 11/02/2016 Patient Education: Patient Medication Summary Completed 11/02/2016 Appointment: Nurse Visit 10/31/2016 Visit Plan: Laceration-right forearm- Pt was instructed to keep the wound clean, cleanse with sterile saline, use bactroban ointment, call if redness, pustular drainage, or any other acute concerns. Follow up Monday for dressing changes. 10/27/2016 Appointment: Laura Colin WPtel: [phone] [phone] [place] (30 min) Complex 10/27/2016 Patient [...] symptoms. 08/31/2016 Appointment: Kar[facility] Bahena WPtel: [phone] [facility] (15 min) Moderate 08/31/2016 Patient [...] swelling. 07/27/2016 Appointment: Karma Bahena WPtel: [phone] [facility] (15 min) Moderate 07/27/2016 Patient [...] of lasix 06/23/2016 Appointment: Karma Bahena WPtel: [phone] [facility] (15 min) Moderate 06/23/2016 Patient Education: Patient Medication Summary Completed 06/23/2016 Patient Education: Hypertension Completed 06/23/2016 Visit Plan: Edema - with Dyspnea - RX for laxis and compression socks - pt to call if not improving. 06/09/2016 Appointment: Karma Bahena WPtel: [facility]3 [facility] (15 min) Moderate 06/09/2016 Patient Education: Patient Medication Summary Completed 06/09/2016 Visit Plan: Abdominal pain and rectal itching - recommended pt to use betamethasone on vaginal/rectal region, monitor symptoms call if not improving. Continue with beano and simethicone 05/25/2016 Appointment: Karma Bahena WPtel: [address] [place], [place] [phone] (15 min) Moderate 05/25/2016 Patient Education: Patient Medication Summary Completed 05/25/2016 Care Plan: SCREENINGMAMMOGRAPHYDIGITAL LOINC : 52566-7 Pending 05/20/2016 Visit Plan: Abdominal distension - use simethicone four times daily - after meals - if it does not help - in the next two weeks - call the office and we will do a ct scan of the abdomen and pelvis 05/17/2016 Appointment: Karma Bahena WPtel: [facility]7 [facility] (15 min) Moderate 05/17/2016 Patient Education: Patient [...] ointment 03/24/2016 Appointment: Karma Bahena WPtel: [facility]7 [facility] (30 min) Complex 03/24/2016 Patient Education: Patient [...] allergy spray. 12/21/2015 Appointment: Laura Colin WPtel: [phone] [phone] (30 min) Complex 12/21/2015 Patient Education: [...] becoming uncontrolled. 11/03/2015 Appointment: Karma Bahena WPtel: [phone] [facility] (15 min) Moderate 11/03/2015 Patient [...] had left kidney and ureter removed in [place]-doing well 09/01/2015 Appointment: (30 min) Complex 09/01/2015 Patient Education: Patient Medication Summary Completed 09/01/2015 Patient Education: Hypertension Completed 09/01/2015 Appointment: Karma Bahena WPtel: [address] [place] [address] (15 min) Moderate 07/13/2015 Visit Plan: Hematuria/Urethritis [...] 05/13/2015 Care Plan: Referral Order SNOMED-CT : [id number] Ordered 05/08/2015 Visit Plan: Atrial Fibrillation - [...] Dr. Collins. 05/07/2015 Appointment: Karma Bahena WPtel: [facility] (15 min) Moderate 05/07/2015 Patient [...] becoming uncontrolled. 10/30/2014 Appointment: Karma Bahena WPtel: [address] [place], [place] [address] Follow up 10/30/2014 Patient Education: Patient Medication Summary Completed 10/30/2014 Appointment: Karma Bahena WPtel: [address] [place], [place] [address] Follow up 07/22/2014 Visit Plan: Atrial Fibrillation [...] in hospital. 07/11/2014 Appointment: Karma Bahena WPtel: [address] [place], [place] [phone] Sick 07/11/2014 Patient Education: Patient Medication Summary Completed 07/11/2014 Appointment: Karma Bahena WPtel: [address] [place], [place] [phone] Follow up 07/07/2014 Visit Plan: Urinary incontinence and recurrent UTI's - doctor will refer to Dr. Joel Collins - for nonsurgical intervention for potential electrical stimulation/training of pelvic floor muscles - for strengthening - can start on the treatment when you get back from [place] - will also ask him about doing a cystoscopy to look into bladder to see if there is any bladder irritation. keep using the Premarin - use about 25Cent size of cream onto finger to apply to urethra and do this three times weekly. 05/20/2014 Appointment: Karma Bahena WPtel: [phone] [facility] Follow up 05/20/2014 Patient Education: Patient Medication Summary Completed 05/20/2014 Appointment: Karma Bahena WPtel: [phone] [facility] [place] Lab Draw 05/14/2014 Patient Education: Patient [...] vesicare. 04/29/2014 Appointment: Karma Bahena WPtel: [facility] Follow up 04/29/2014 Patient Education: [...] spray. 03/20/2014 Appointment: Karma Bahena WPtel: [phone] [facility] [facility] 03/20/2014 Patient Education: Patient Medication Summary Completed [...] becoming uncontrolled. 03/05/2014 Appointment: Karma Bahena WPtel: [address] [place], [place] [phone] Follow up 03/05/2014 Patient Education: Patient Medication [...] report. 01/29/2014 Appointment: Karma Bahena WPtel: [phone] [facility] Follow up 01/29/2014 Patient Education: Patient Medication [...] exposure,and dyspnea on exertion - will ask [facility] do an overnight oxygen study on [place] as she has cardiac history, weight loss, and nocturnal hypoxemia may be a part of her weight loss and fatigue. 12/25/2013 Appointment: Karma Bahena WPtel: [phone] [facility] Follow up 12/25/2013 Patient Education: [...] daily. 11/27/2013 Appointment: Karma Bahena WPtel: [phone] [facility] Follow up 11/27/2013 Patient Education: Patient Medication [...] rate. Osteoarthritis - send pt to [facility] physical therapy for gereral osteoarhtritis program for strengthening and pain reduction. Hypertension - well controlled - continue with current medications, continue with no added salt diet. Pt has been encouraged to exercise daily. The pt has been advised to call the office if there are any acute concerns about change in blood pressure readings at home. 09/12/2013 Appointment: Karma Bahena WPtel: [facility]5 [facility] Follow up 09/12/2013 Patient Education: Patient Medication Summary Completed 09/12/2013 Patient Education: Hypertension Completed 09/12/2013 Appointment: Karma Bahena WPtel: [facility]5 [facility] Follow up 08/21/2013 Visit Plan: Hypertension - [...] PT/INR 08/15/2013 Appointment: Karma Bahena WPtel: [facility]9 [facility] Follow up 08/15/2013 Patient Education: Patient Medication [...] urethra. 08/01/2013 Appointment: Karma Bahena WPtel: [facility] [place] Follow up 08/01/2013 Patient Education: Patient Medication Summary Completed 08/01/2013 Patient Education: Hypertension Completed 08/01/2013 Appointment: Laura Colin WPtel: [phone] [place] Lab Draw 07/29/2013 Patient Education: Patient Medication Summary Completed 07/29/2013 Visit Plan: Osteoporosis-prolia on june 25-patient to let Dr Hansen know 07/01/2013 Appointment: Laura Colin WPtel: [phone] [place] Follow up 07/01/2013 Appointment: Karma Bahena WPtel: [facility] [place] Follow up 07/01/2013 Patient Education: Patient Medication Summary Completed 07/01/2013 Appointment: Karma Bahena WPtel: [phone] [facility] [place] Follow up 06/25/2013 Appointment: Karma Bahena WPtel: [facility]5 [facility] [place] Lab Draw 06/20/2013 Patient Education: Patient Medication Summary Completed 06/20/2013 Appointment: Karma Bahena WPtel: [phone] [facility] Lab Draw 06/19/2013 Visit Plan: Atrial Fibrillation [...] home. 05/29/2013 Appointment: Karma Bahena WPtel: [facility] Follow up 05/29/2013 Patient Education: Patient Medication [...] home. 05/15/2013 Appointment: Karma Bahena WPtel: [facility] Other 05/15/2013 Patient Education: Patient Medication Summary [...] shot today. 04/23/2013 Appointment: Karma Bahena WPtel: [address] [place], [place] [phone] Other 04/23/2013 Patient Education: Patient Medication Summary [...] regimen. 03/21/2013 Appointment: Laura Colin WPtel: [facility]7 [phone] Follow up 03/21/2013 Patient Education: Patient [...] becoming uncontrolled. 01/16/2013 Appointment: Karma Bahena WPtel: [address] [place], [place] [phone] Follow up 01/16/2013 Patient Education: Patient Medication Summary Completed 01/16/2013 Patient Education: Hypertension Completed 01/16/2013 Visit Plan: Wound Instructions - Pt was instruced to keep the wound clean, wash with antibacterial soap, use triple antibiotic ointment, call if redness, pustular drainage, or any other acute conerns. 12/19/2012 Appointment: Karma Bahena WPtel: [address] [place], [place] [phone] Other 12/19/2012 Patient Education: Patient Medication Summary Completed 12/19/2012 Patient Education: Patient Medication Summary Completed 12/17/2012 Visit Plan: Cellulitis - improved- monitor symptoms - need to check handon Monday morning. 12/14/2012 Appointment: Karma Bahena WPtel: [address] [place], [place] [phone] Follow up 12/14/2012 Patient Education: Patient Medication Summary Completed 12/14/2012 Visit Plan: Cellulitis - improved- monitor symptoms - need to check handon Monday morning. 12/12/2012 Appointment: Karma Bahena WPtel: [address] [place], [place] [phone] Work-in 12/12/2012 Patient Education: Patient Medication Summary [...] warmth, discharge. 12/10/2012 Appointment: Karma Bahena WPtel: [address] [place], [place] [phone] Other 12/10/2012 Patient Education: Patient Medication Summary [...] uncontrolled. 10/30/2012 Appointment: Karma Bahena WPtel: [facility] Follow up 10/30/2012 Patient Education: Patient Medication Summary Completed 10/30/2012 Appointment: Laura Colin WPtel: [phone] [phone] [place] Lab Draw 09/13/2012 Patient Education: Patient [...] 3.5. 08/08/2012 Appointment: Karma Bahena WPtel: [facility] [address] Other 08/08/2012 Patient Education: Patient Medication [...] regimen. 07/11/2012 Appointment: Karma Bahena WPtel: [facility]7 [facility] swelling, leg edema Other 07/11/2012 Patient Education: [...] vaginally. 05/08/2012 Appointment: Karma Bahena WPtel: [phone] [facility] [place] Follow up 05/08/2012 Patient Education: Patient [...] during hospitalization. 04/18/2012 Appointment: Karma Bahena WPtel: [address] [place], [place] [address] [place] Follow up 04/18/2012 Patient Education: Patient Medication Summary Completed 04/18/2012 Patient Education: High Blood Pressure: Essential Hypertension Completed 04/18/2012 Appointment: Karma Bahena WPtel: [facility] [place] Follow up 04/09/2012 Appointment: Karma Bahena WPtel: [facility] [place] Lab Draw 04/04/2012 Appointment: Laura Colin WPtel: [phone] [place] Lab Draw [...] Completed 03/13/2012 Appointment: Karma Bahena WPtel: [phone] [facility] Lab Draw 03/08/2012 Patient Education: [...] rehab. 02/20/2012 Appointment: Karma Bahena WPtel: [phone] [facility] Other 02/20/2012 Patient Education: Patient [...] becoming uncontrolled. 02/13/2012 Appointment: Laura Colin WPtel: [phone] [phone] Other 02/13/2012 Patient Education: Patient Medication Summary Completed 02/13/2012 Appointment: Karma Bahena WPtel: [facility] Lab Draw 02/07/2012 Visit Plan: Atrial Fibrillation [...] the medication. 02/01/2012 Appointment: Karma Bahena WPtel: [address] [place], [place] [phone] Other 02/01/2012 Patient Education: Patient Medication Summary Completed 02/01/2012 Patient Education: High Blood Pressure: Essential Hypertension Completed 02/01/2012 Appointment: Karma Bahena WPtel: [address] [place] [address] Lab Draw 01/17/2012 Visit Plan: Atrial Fibrillation [...] at home. 2012 Appointment: Karma Bahena WPtel: [address] [place], [place] [phone] Other 2012 Patient Education: Patient Medication Summary Completed 2012 Patient Education: High Blood Pressure: Essential Hypertension Completed 2012 Appointment: Karma Bahena WPtel: [address] [place], [place] [phone] Follow up 12/20/2011 Visit Plan: Dicyclomine up [...] emergency room. 12/01/2011 Appointment: Karma Bahena WPtel: [address] [place], [place] [phone] Other 12/01/2011 Patient Education: Patient Medication Summary [...] infection resolves. 11/23/2011 Appointment: Laura Colin WPtel: [facility]5 [phone] Other 11/23/2011 Patient Education: Patient Medication [...] hearing 10/17/2011 Appointment: Laura Colin WPtel: [phone] [phone] Other 10/17/2011 Patient Education: Patient Medication [...] by irrigation. 10/03/2011 Appointment: Karma Bahena WPtel: [phone] [id number] Other 10/03/2011 Patient Education: Patient Medication Summary [...] is evidence. 08/08/2011 Appointment: Karma Bahena WPtel: [phone] [id number] Other 08/08/2011 Patient Education: Patient Medication Summary Completed 08/08/2011 Patient Education: High Blood Pressure: Essential Hypertension Completed 08/08/2011 Visit Plan: Muscle cramps - the cramps are a little better, continue with the Diltiazem and it is okay to use the over the counter supplement with quinine - but use it sparingly. For the rash, use the prescripti on the teletype adjuster prescribed for the itching , call if the rash is not improved. Torticollis - continue with physical therapy, call if the neck muscles do not continue to show improvement. 05/09/2011 Appointment: Karma Bahena WPtel: [address] [place], [place] [phone] Other 05/09/2011 Patient Education: Patient Medication Summary [...] water aerobics. 03/29/2011 Appointment: Karma Bahena WPtel: [address] [place], [place] [id number] Other 03/29/2011 Patient Education: Patient Medication Summary Completed 03/29/2011 Appointment: Karma Bahena WPtel: [address] [place], [place] [phone] Other 03/17/2011 Visit Plan: UTI - UA negative. Urge incontinence- restart on the vesicare- at 5 mg. Continue to avoid caffinated foods/fluids. Peripheral Neuropathy - per application development team lead report - Continue with the metanex. Loss of weight - WEIGHT CHECK IN 2 WKS. Palpitations- likely stress induced. If the symptoms worsen, call the office. 03/15/2011 Appointment: Karma Bahena WPtel: [address] [place], [place] [phone] Follow up 03/15/2011 Patient Education: Patient Medication [...] avoid caffinated foods/fluids. Peripheral Neuropathy - per application development team lead report - Continue with the metanex. Loss [...] therefore, would not change the medication. . [id number] zpack-call if symptoms do not resolve or [...] For the rash, use the prescription the teletype adjuster prescribed for the itching , call [...] rate. Osteoarthritis - send pt to [facility] physical therapy for gereral osteoarhtritis program for [...] readings at home. Ynes- recommended cardiac rehab. rita tobin hearing aide [...] had left kidney and ureter removed in [place]- doing well . Hematuria - check UA. [...] the treatment when you get back from [place] - will also ask him about doing [...] exposure,and dyspnea on exertion - will ask [facility] do an overnight oxygen study [...]
--- NOTE | 2019-01-07 09:26 | NUR ---
dr brown in room with pt at this time.
--- OUTSIDE RECORDS SUMMARY | 2019-01-07 09:47 | XMS REPORT | CCD ---
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 Unknown Has never used illegal drugs 03/15/2011 Allergies, Adverse Reactions, Alerts Substance Reaction Codes Entered Date Inactivated Date Status BACTINE RxNorm: 718256 03/04/2011 No Inactive Date Active MICONAZOLE RxNorm: 6932 03/04/2011 No Inactive Date Active NEOSPORIN RxNorm: 955815 03/04/2011 No Inactive Date Active NEOMYCIN RxNorm: 7299 03/04/2011 No Inactive Date Active CORTISPORIN RxNorm: 22808 03/04/2011 No Inactive Date Active bactrim RxNorm: 651554 03/13/2012 No Inactive Date Active AUGMENTIN diarrhea RxNorm: 117663 2016 No Inactive Date Active METRONIDAZOLE Unknown [...] 401.9 ICD-10: I10 Active 12/25/2013 Unknown Other bed bug exterminator (current) drug therapy ICD-9: V58.83 ICD-10: [...] ICD-9: 401.9 ICD-10: I10 12/25/2013 Active Other bed bug exterminator (current) drug therapy ICD-9: V58.83 ICD-10: [...] ICD-9: 706.2 ICD-10: L72.0 02/01/2016 Active Other bed bug exterminator (current) drug therapy ICD-9: V58.69 ICD-10: [...] Fill Instructions Lexapro 5 mg tablet RxNorm: 625775 1 Tablet(s) PO QPM 12/10/2018 06/07/2019 Active Keflex 500 mg capsule RxNorm: 575503 1 Capsule(s) PO TID 12/07/2018 12/13/2018 Active digoxin 125 mcg tablet RxNorm: 374952 Tablet(s) every other day 12/06/2018 11/30/2019 Active Keflex 500 mg capsule RxNorm: 090896 1 Capsule(s) PO TID 11/30/2018 12/06/2018 Inactive pantoprazole 40 mg tablet,delayed release RxNorm: 336995 1 TABLET(S) PO DAILY 11/29/2018 11/23/2019 Active amlodipine 5 mg tablet RxNorm: 103495 Tablet(s) 1/2 TABLET(S) PO DAILY MAY TAKE AN EXTRA 1/2 PILL AT THE END OF THE DAY IF BLOOD PRESSURE IS ELEVATED OVER 140 11/29/2018 05/27/2019 Active cyclobenzaprine 5 mg tablet RxNorm: 673802 1/2 Tablet(s) PO TID TABLET(S) 1/2 TABLET(S) PO Q8 NEEDED MUSCLE SPASMS 10/31/2018 04/28/2019 Active Imvexxy Starter Pack 4 mcg vaginal insert, dose pack RxNorm: 8623432 1 dose VAG BIW 10/31/2018 01/28/2019 Active Voltaren 1 % topical gel RxNorm: 996384 2 Gram(s) TOP QID on left shoulder and bilateral hands 10/17/2018 05/14/2019 Active PA APPROVED UNTIL JUL 09 2019 [id number] amlodipine 5 mg tablet RxNorm: 576395 1/2 TABLET(S) PO DAILY MAY TAKE AN EXTRA 1/2 PILL AT THE END OF THE DAY IF BLOOD PRESSURE IS ELEVATED OVER 140 10/15/2018 11/28/2018 Inactive Patient requests 90 days supply Voltaren 1 % topical gel RxNorm: 065348 2 Gram(s) TOP QID on left shoulder and bilateral hands 10/09/2018 10/16/2018 Inactive levothyroxine 75 mcg tablet RxNorm: 172037 1 Tablet(s) PO daily 09/19/2018 01/16/2019 Active Keflex 500 mg capsule RxNorm: 304388 1 Capsule(s) PO TID 09/12/2018 09/18/2018 Inactive spironolactone 25 mg tablet RxNorm: 454820 1 Tablet(s) PO BID 08/14/2018 11/06/2019 Active see new directions and quantity cyclobenzaprine 5 mg tablet RxNorm: 750812 Tablet(s) TABLET(S) 1/2 TABLET(S) PO Q8 NEEDED MUSCLE SPASMS 08/14/2018 10/30/2018 Inactive Nitro-Bid 2 % transdermal ointment RxNorm: 108895 1 dime size amount TD BID to fingers and toes 08/14/2018 09/12/2018 Inactive cyclobenzaprine 5 mg tablet RxNorm: 613012 TABLET(S) 1/2 TABLET(S) PO Q8 NEEDED MUSCLE SPASMS 08/06/2018 08/13/2018 Inactive amlodipine 5 mg tablet RxNorm: 359691 1/2 Tablet(s) PO daily may take an extra 1/2 pill at the end of the day if blood pressure is elevated over 140 07/26/2018 10/14/2018 Inactive cefdinir 300 mg capsule RxNorm: 032153 1 Capsule(s) PO BID 06/20/2018 06/26/2018 Inactive cefdinir 300 mg capsule RxNorm: 221772 1 Capsule(s) PO BID 06/20/2018 06/19/2018 Inactive metoprolol succinate ER 50 mg tablet,extended release 24 hr RxNorm: 088312 1.5 Tablet(s) daily 06/15/2018 03/11/2019 Active sucralfate 100 mg/mL oral suspension RxNorm: 859259 2 Teaspoon(s) PO TID as needed with reflux symptoms 06/04/2018 No Stop Date Active Vesicare 10 mg tablet RxNorm: 843314 1 TABLET(S) PO EVERY OTHER DAY 05/14/2018 01/08/2019 Active levothyroxine 50 mcg tablet RxNorm: 903282 1 TABLET(S) PO DAILY 04/30/2018 09/18/2018 Inactive Patient requests 90 days supply spironolactone 25 mg tablet RxNorm: 091398 1 Tablet(s) PO daily 03/14/2018 08/13/2018 Inactive levothyroxine 50 mcg tablet RxNorm: 520249 1 Tablet(s) PO daily 02/01/2018 04/29/2018 Inactive Eliquis 2.5 mg tablet RxNorm: 7826076 1 Tablet(s) PO BID 01/31/2018 02/20/2018 Inactive levothyroxine 50 mcg tablet RxNorm: 070216 1 Tablet(s) PO daily 01/31/2018 01/31/2018 Inactive Eliquis 2.5 mg tablet RxNorm: 1465476 TAKE 1 TABLET BY MOUTH TWICE DAILY 01/23/2018 07/21/2018 Inactive metoprolol succinate ER 50 mg tablet,extended release 24 hr RxNorm: 486981 1 TABLET(S) PO DAILY 01/23/2018 01/30/2018 Inactive metoprolol succinate ER 50 mg tablet,extended release 24 hr RxNorm: 043968 1.5 Tablet(s) daily 01/22/2018 06/14/2018 Inactive lisinopril 20 mg tablet RxNorm: 895581 1/2 Tablet(s) daily 01/19/2018 01/21/2018 Inactive Patient requests 90 days supply Singulair 10 mg tablet RxNorm: 361768 TAKE 1 TABLET BY MOUTH AT BEDTIME 01/18/2018 04/17/2018 Inactive Patient requests 90 days supply Singulair 10 mg tablet RxNorm: 038069 Tablet(s) PO 01/17/2018 01/17/2018 Inactive digoxin 125 mcg tablet RxNorm: 400093 1 TABLET(S) PO DAILY 01/03/2018 12/05/2018 Inactive Symbicort 160 mcg-4.5 mcg/actuation HFA aerosol inhaler RxNorm: 7640668 2 Puff(s) INH BID 12/14/2017 04/12/2018 Inactive please dispense an aerochamber for patient as well as her symbicort cyclobenzaprine 5 mg tablet RxNorm: 623244 Tablet(s) 1/2 TABLET(S) PO Q8 NEEDED MUSCLE SPASMS 12/14/2017 08/05/2018 Inactive pantoprazole 40 mg tablet,delayed release RxNorm: 523169 1 Tablet(s) PO daily 12/14/2017 11/28/2018 Inactive ProAir RespiClick 90 mcg/actuation breath activated RxNorm: 2046670 1-2 INH QID as needed shortness of breath 12/14/2017 07/11/2018 Inactive cyclobenzaprine 5 mg tablet RxNorm: 882210 1/2 TABLET(S) PO Q8 NEEDED MUSCLE SPASMS 12/08/2017 12/13/2017 Inactive betamethasone dipropionate 0.05 % topical ointment RxNorm: 285861 1 Application TOP TID use topically on the rectal tissue three times daily x 1 week then as needed 11/13/2017 No Stop Date Active Premarin 0.625 mg/gram vaginal cream RxNorm: 732702 1/2 GRAM(S) VAG TIW 11/13/2017 10/30/2018 Inactive cyclobenzaprine 5 mg tablet RxNorm: 086821 1/2 TABLET(S) PO Q8 NEEDED MUSCLE SPASMS 10/17/2017 12/07/2017 Inactive Vesicare 10 mg tablet RxNorm: 249697 1 Tablet(s) PO every other day 10/17/2017 04/14/2018 Inactive lisinopril 20 mg tablet RxNorm: 634178 1 TABLET(S) PO DAILY 10/02/2017 01/18/2018 Inactive Patient requests 90 days supply levothyroxine 75 mcg tablet RxNorm: 898517 1 TABLET(S) PO DAILY 09/25/2017 01/30/2018 Inactive spironolactone 25 mg tablet RxNorm: 915543 1 TABLET(S) PO DAILY 08/16/2017 03/13/2018 Inactive cyclobenzaprine 5 mg tablet RxNorm: 048400 1/2 TABLET(S) PO Q8 NEEDED MUSCLE SPASMS 08/16/2017 10/16/2017 Inactive Eliquis 2.5 mg tablet RxNorm: 1457876 TAKE 1 TABLET BY MOUTH TWICE DAILY 07/26/2017 01/21/2018 Inactive cyclobenzaprine 5 mg tablet RxNorm: 150785 1/2 Tablet(s) PO Q8 as needed muscle spasms 06/19/2017 08/15/2017 Inactive lisinopril 20 mg tablet RxNorm: 068599 1 TABLET(S) PO DAILY 06/12/2017 10/01/2017 Inactive metoprolol succinate ER 50 mg tablet,extended release 24 hr RxNorm: 229249 1 TABLET(S) PO DAILY 04/07/2017 01/01/2018 Inactive spironolactone 25 mg tablet RxNorm: 661779 1 Tablet(s) PO daily 03/27/2017 03/13/2018 Inactive acyclovir 800 mg tablet RxNorm: 169313 1 Tablet(s) PO TID 03/21/2017 03/30/2017 Inactive acyclovir 800 mg tablet RxNorm: 773576 1 Tablet(s) PO TID 03/21/2017 03/20/2017 Inactive levothyroxine 75 mcg tablet RxNorm: 612856 1 Tablet(s) PO daily 03/16/2017 09/11/2017 Inactive spironolactone 25 mg tablet RxNorm: 927927 1 TABLET(S) PO DAILY 02/09/2017 03/26/2017 Inactive lisinopril 20 mg tablet RxNorm: 067830 1 TABLET(S) PO DAILY 01/02/2017 05/31/2017 Inactive Zithromax Z-Claudio 250 mg tablet RxNorm: 571079 1 Tablet(s) PO UD 11/29/2016 12/03/2016 Inactive ZPACK Keflex 500 mg capsule RxNorm: 330093 1 Capsule(s) PO TID 11/23/2016 12/02/2016 Inactive guaifenesin 400 mg tablet RxNorm: 779010 1 Tablet(s) PO Q6 as needed 11/23/2016 11/27/2016 Inactive omeprazole 40 mg capsule,delayed release RxNorm: 191710 1 Capsule(s) PO QPM 11/02/2016 12/13/2017 Inactive digoxin 125 mcg tablet RxNorm: 586577 1 TABLET(S) PO DAILY 10/27/2016 07/23/2017 Inactive cyclobenzaprine 5 mg tablet RxNorm: 226338 1/2 Tablet(s) PO Q8 PRN 10/25/2016 06/18/2017 Inactive prn muscle spasms Augmentin 500 mg-125 mg tablet RxNorm: 174990 1 Tablet(s) PO BID 10/24/2016 11/02/2016 Inactive Lasix 20 mg tablet RxNorm: 338625 Tablet(s) PRN one to two times a week if needed 07/27/2016 No Stop Date Active Patient requests 90 days supply spironolactone 25 mg tablet RxNorm: 466271 1 Tablet(s) PO daily 07/27/2016 02/08/2017 Inactive Diflucan 150 mg tablet RxNorm: 173893 1 Tablet(s) PO daily 07/27/2016 08/02/2016 Inactive lisinopril 20 mg tablet RxNorm: 649187 1 Tablet(s) PO daily 07/12/2016 01/01/2017 Inactive Lasix 20 mg tablet RxNorm: 927976 1 TABLET(S) PO EVERY OTHER DAY EVERY OTHER DAY 06/10/2016 07/26/2016 Inactive Patient requests 90 days supply potassium chloride ER 10 mEq capsule,extended release RxNorm: 361554 1 CAPSULE(S) PO EVERY OTHER DAY 06/10/2016 07/26/2016 Inactive Patient requests 90 days supply potassium chloride ER 10 mEq capsule,extended release RxNorm: 702798 1 Capsule(s) PO every other day 06/09/2016 06/09/2016 Inactive Lasix 20 mg tablet RxNorm: 968071 1 Tablet(s) PO every other day every other day 06/09/2016 06/09/2016 Inactive levothyroxine 88 mcg tablet RxNorm: 467217 1 Tablet(s) PO daily 05/11/2016 11/06/2016 Inactive Premarin 0.625 mg/gram vaginal cream RxNorm: 459419 1/2 Gram(s) VAG TIW 03/24/2016 03/18/2017 Inactive metoprolol succinate ER 50 mg tablet,extended release 24 hr RxNorm: 322194 1 Tablet(s) PO daily 03/24/2016 03/18/2017 Inactive pantoprazole 40 mg tablet,delayed release RxNorm: 474177 1 Tablet(s) PO daily 02/08/2016 11/01/2016 Inactive betamethasone dipropionate 0.05 % topical ointment RxNorm: 557744 1 Application TOP TID use topically on the rectal tissue three times daily x 1 week then as needed 02/02/2016 11/12/2017 Inactive pantoprazole 40 mg tablet,delayed release RxNorm: 082142 1 Tablet(s) PO daily 2016 02/07/2016 Inactive alprazolam 0.25 mg tablet RxNorm: 396087 1 Tablet(s) PO Q6 as needed 12/04/2015 No Stop Date Active Vesicare 10 mg tablet RxNorm: 038162 1 Tablet(s) PO every other day 11/03/2015 10/16/2017 Inactive alprazolam 0.25 mg tablet RxNorm: 059046 1 Tablet(s) PO Q6 as needed 11/03/2015 12/03/2015 Inactive Premarin 0.625 mg/gram vaginal cream RxNorm: 656969 1/2 Gram(s) VAG TIW 11/03/2015 03/23/2016 Inactive levothyroxine 88 mcg tablet RxNorm: 535039 1 Tablet(s) PO daily 11/03/2015 05/10/2016 Inactive Diflucan 150 mg tablet RxNorm: 233899 1 Tablet(s) PO daily 10/19/2015 10/25/2015 Inactive cetirizine 10 mg chewable tablet RxNorm: 7466808 1 Tablet(s) PO daily 10/13/2015 11/11/2015 Inactive cetirizine 10 mg capsule RxNorm: 4248560 1 Capsule(s) PO daily 10/13/2015 11/11/2015 Inactive Vesicare 10 mg tablet RxNorm: 885211 1/2 TABLET(S) PO BID 09/21/2015 11/02/2015 Inactive betamethasone dipropionate 0.05 % topical ointment RxNorm: 734329 1 Application TOP TID use topically on the rectal tissue three times daily x 1 week then as needed 09/15/2015 02/01/2016 Inactive lisinopril 20 mg tablet RxNorm: 245986 1 Tablet(s) PO daily 09/01/2015 07/11/2016 Inactive digoxin 125 mcg tablet RxNorm: 286013 1 Tablet(s) PO daily 09/01/2015 08/25/2016 Inactive Augmentin 500 mg-125 mg tablet RxNorm: 111611 1 Tablet(s) PO TID 05/26/2015 06/04/2015 Inactive Pyridium 200 mg tablet RxNorm: 1756961 1 Tablet(s) PO TID 05/26/2015 05/27/2015 Inactive levothyroxine 88 mcg tablet RxNorm: 201619 1 Tablet(s) PO daily except 1/2 pill on monday and 05/07/2015 11/02/2015 Inactive digoxin 125 mcg tablet RxNorm: 652613 1 Tablet(s) PO daily 05/07/2015 08/31/2015 Inactive lisinopril 20 mg tablet RxNorm: 138347 1 TABLET(S) PO BID 04/13/2015 09/01/2015 Inactive Coumadin 1 mg tablet RxNorm: 664377 1 TABLET(S) PO DAILY 03/31/2015 08/31/2015 Inactive Coumadin 2 mg tablet RxNorm: 760804 4MG IN AM AND 1MG AT NIGHT TABLET(S) PO DAILY DIRECTED. 03/31/2015 08/31/2015 Inactive levothyroxine 88 mcg tablet RxNorm: 497139 1 Tablet(s) PO daily 03/23/2015 05/06/2015 Inactive alprazolam 0.25 mg tablet RxNorm: 909799 Tablet(s) PO 03/23/2015 04/06/2015 Inactive levothyroxine 88 mcg tablet RxNorm: 762354 1 Tablet(s) PO daily 01/28/2015 03/22/2015 Inactive levothyroxine 88 mcg tablet RxNorm: 917487 1 Tablet(s) PO daily 01/28/2015 01/27/2015 Inactive diltiazem ER 120 mg capsule,extended release RxNorm: 900263 1 Capsule(s) PO BID patient would like 4 months at a time 01/06/2015 09/28/2015 Inactive digoxin 125 mcg tablet RxNorm: 684137 Tablet(s) 1 TABLET(S) PO DAILY 12/24/2014 12/23/2014 Inactive pt will be paying palomares (On $4 list)Patient requests 90 days supply digoxin 125 mcg tablet RxNorm: 972068 Tablet(s) 1 TABLET(S) PO DAILY M W F Sat and 2 tabs on T TH 12/24/2014 05/06/2015 Inactive pt will be paying palomares (On $4 list)Patient requests 90 days supply dicyclomine 20 mg tablet RxNorm: 392808 1 Tablet(s) PO daily 11/17/2014 08/31/2015 Inactive one ac dinner and up to tid prn levothyroxine 88 mcg tablet RxNorm: 812937 1 Tablet(s) PO daily 11/03/2014 01/27/2015 Inactive Premarin 0.625 mg/gram vaginal cream RxNorm: 586546 1 APPLICATION VAG 1 APPLICATOR PER VAGINA 3 TIMES PER WEEK 11/03/2014 07/30/2015 Inactive digoxin 125 mcg tablet RxNorm: 290165 1 TABLET(S) PO DAILY 09/29/2014 12/23/2014 Inactive pt will be paying palomares (On $4 list)Patient requests 90 days supply digoxin 125 mcg tablet RxNorm: 836158 1 TABLET(S) PO DAILY 07/11/2014 04/06/2015 Inactive Vesicare 10 mg tablet RxNorm: 929866 1/2 Tablet(s) PO BID 05/20/2014 05/14/2015 Inactive Levaquin 500 mg tablet RxNorm: 305523 1 Tablet(s) PO daily 05/06/2014 05/08/2014 Inactive take probiotic BID while on ABT Levaquin 500 mg tablet RxNorm: 561272 1 Tablet(s) PO daily 05/02/2014 05/05/2014 Inactive take probiotic BID while on ABT diltiazem ER 120 mg capsule,extended release RxNorm: 584662 1 Capsule(s) PO BID patient would like 4 months at a time 04/29/2014 2015 Inactive Vesicare 10 mg tablet RxNorm: 413491 1/2 Tablet(s) PO BID 04/29/2014 05/19/2014 Inactive lisinopril 20 mg tablet RxNorm: 242654 1 Tablet(s) PO BID 03/20/2014 03/14/2015 Inactive diltiazem 90 mg tablet RxNorm: 164813 1/2 TABLET(S) PO QPM 03/04/2014 04/28/2014 Inactive also 180 q am diltiazem ER 120 mg capsule,extended release RxNorm: 151624 1 Capsule(s) PO daily patient would like 4 months at a time 01/29/2014 04/28/2014 Inactive Vesicare 10 mg tablet RxNorm: 223292 1 Tablet(s) PO QHS 01/14/2014 04/28/2014 Inactive Coumadin 2 mg tablet RxNorm: 270233 4mg in AM and 1mg at night Tablet(s) PO daily as directed. 12/25/2013 03/30/2015 Inactive Metanx 3 mg-35 mg-2 mg tablet RxNorm: 1 Tablet(s) PO daily 12/25/2013 11/02/2015 Inactive digoxin 125 mcg tablet RxNorm: 847566 1 Tablet(s) PO daily 12/25/2013 09/28/2014 Inactive pt will be paying palomares (On $4 list) Coumadin 2 mg tablet RxNorm: 225838 7.5 wed 5mg other Tablet(s) PO as directed. 12/03/2013 12/24/2013 Inactive omeprazole 20 mg tablet,delayed release RxNorm: 835145 1 Tablet(s) PO BID 11/27/2013 04/28/2014 Inactive Coumadin 2 mg tablet RxNorm: 267911 5 mg daily Tablet(s) PO as directed. 11/26/2013 12/02/2013 Inactive 5 mg daily Xanax 0.25 mg tablet RxNorm: 660387 1 Tablet(s) PO Q6 PRN 11/11/2013 12/25/2013 Inactive alprazolam 0.25 mg tablet RxNorm: 270930 tablet oral 11/11/2013 03/22/2015 Inactive sucralfate 1 gram tablet RxNorm: 743026 1 Tablet(s) PO AC & HS 11/04/2013 11/03/2013 Inactive sucralfate 1 gram tablet RxNorm: 787370 1 Tablet(s) PO AC & HS 11/04/2013 01/02/2014 Inactive Synthroid 100 mcg tablet RxNorm: 284311 1 Tablet(s) PO daily 10/31/2013 10/25/2014 Inactive Synthroid 100 mcg tablet RxNorm: 855973 1 Tablet(s) PO daily 09/30/2013 10/29/2013 Inactive Vesicare 10 mg tablet RxNorm: 240876 1 Tablet(s) PO QHS 09/30/2013 01/13/2014 Inactive Lotemax 0.5 % eye ointment RxNorm: 8528772 ointment opht 09/06/2013 12/10/2013 Inactive levothyroxine 100 mcg tablet RxNorm: 114165 tablet oral 09/05/2013 11/02/2014 Inactive Synthroid 100 mcg tablet RxNorm: 533252 1 Tablet(s) PO daily 09/05/2013 09/29/2013 Inactive Prolia 60 mg/mL Sub-Q Syringe RxNorm: 818508 1 Milliliter(s) SQ 06/25/2013 11/02/2015 Inactive dicyclomine 20 mg tablet RxNorm: 490405 1 Tablet(s) PO daily 06/24/2013 06/18/2014 Inactive one ac dinner and up to tid prn omeprazole 20 mg tablet,delayed release RxNorm: 084269 1 Tablet(s) PO BID 06/24/2013 11/26/2013 Inactive Cipro 500 mg tablet RxNorm: 533907 1 Tablet(s) PO BID 06/20/2013 06/26/2013 Inactive diltiazem ER 120 mg capsule,extended release RxNorm: 790225 1 Capsule(s) PO daily patient would like 4 months at a time 06/03/2013 01/28/2014 Inactive Coumadin 2 mg tablet RxNorm: 836973 as directed Tablet(s) PO as directed. 05/29/2013 11/25/2013 Inactive 5 mg daily Synthroid 88 mcg tablet RxNorm: 158205 1 Tablet(s) PO daily 04/24/2013 04/23/2013 Inactive Synthroid 88 mcg tablet RxNorm: 845354 1 Tablet(s) PO daily 04/24/2013 07/28/2013 Inactive Premarin 0.625 mg/gram vaginal cream RxNorm: 403114 1 Application VAG 1 applicator per vagina 3 times per week 04/23/2013 04/17/2014 Inactive Influenza Virus Vaccine 0.5 mL RxNorm: IM 04/23/2013 04/23/2013 Inactive digoxin 125 mcg tablet RxNorm: 814699 1 Tablet(s) PO daily 02/20/2013 04/20/2013 Inactive pt will be paying palomares (On $4 list) Digox 125 mcg tablet RxNorm: 5680218 tablet oral 02/13/2013 03/20/2014 Inactive digoxin 125 mcg tablet RxNorm: 649538 1 Tablet(s) PO daily 02/13/2013 02/19/2013 Inactive diltiazem 90 mg tablet RxNorm: 925579 1/2 Tablet(s) PO QPM 02/13/2013 02/07/2014 Inactive also 180 q am Levoxyl 75 mcg tablet RxNorm: 796610 1 Tablet(s) PO 01/16/2013 04/23/2013 Inactive Coumadin 2 mg tablet RxNorm: 326545 6mg daily except 3mg on wed and fri Tablet(s) PO 01/15/2013 05/28/2013 Inactive 5 mg daily Coumadin 2 mg tablet RxNorm: 022374 6mg daily Tablet(s) PO 12/21/2012 01/14/2013 Inactive 5 mg daily silver sulfadiazine 1 % Topical Cream RxNorm: 791801 TOP apply to affected area with each dressing change 12/19/2012 12/25/2013 Inactive cephalexin 500 mg tablet RxNorm: 986194 1 Tablet(s) PO TID 12/11/2012 12/17/2012 Inactive digoxin 125 mcg tablet RxNorm: 352203 1 Tablet(s) PO daily 10/30/2012 02/12/2013 Inactive digoxin 125 mcg tablet RxNorm: 435652 2 tab tue thurs one other days Tablet(s) PO daily 10/23/2012 10/29/2012 Inactive lisinopril 10 mg tablet RxNorm: 121787 1 Tablet(s) PO daily 10/17/2012 08/14/2013 Inactive Cipro 500 mg tablet RxNorm: 804864 1 Tablet(s) PO BID 09/13/2012 09/19/2012 Inactive Coumadin 1 mg tablet RxNorm: 368482 1 Tablet(s) PO daily 09/03/2012 09/02/2012 Inactive Coumadin 1 mg tablet RxNorm: 461348 1 Tablet(s) PO daily 09/03/2012 12/21/2012 Inactive Coumadin 2 mg tablet RxNorm: 031337 Tablet(s) PO 07/25/2012 12/20/2012 Inactive 5 mg daily digoxin 125 mcg tablet RxNorm: 857214 1 Tablet(s) PO daily 06/28/2012 10/22/2012 Inactive Coumadin 2 mg tablet RxNorm: 868669 Tablet(s) PO 06/27/2012 07/24/2012 Inactive 5mg daily except 4mg on monday Coumadin 2 mg tablet RxNorm: 553220 Tablet(s) PO 06/19/2012 06/26/2012 Inactive 5mg tue wed thur sat sun4mg mon frid(has 2mg and 1 mg tab) digoxin 125 mcg tablet RxNorm: 143835 1 Tablet(s) PO daily 05/29/2012 06/27/2012 Inactive Coumadin 2 mg tablet RxNorm: 179087 Tablet(s) PO 05/15/2012 06/18/2012 Inactive 5mg tue thur sat sun4mg mon frid(has 2mg and 1 mg tab) Coumadin 2 mg tablet RxNorm: 067574 Tablet(s) PO 04/25/2012 05/14/2012 Inactive 5mg tue thru sat4mg mon mon frid sun(has 2mg and 1 mg tab) Metanx 3 mg-35 mg-2 mg tablet RxNorm: 1 Tablet(s) PO BID 04/18/2012 12/24/2013 Inactive dicyclomine 20 mg tablet RxNorm: 074265 1 Tablet(s) PO 04/18/2012 06/23/2013 Inactive one ac dinner and up to tid prn digoxin 125 mcg tablet RxNorm: 412914 Tablet(s) PO daily except .25 on Tuesdays and 04/09/2012 05/28/2012 Inactive omeprazole 20 mg tablet,delayed release RxNorm: 239558 1 Tablet(s) PO BID 04/09/2012 04/03/2013 Inactive digoxin 125 mcg tablet RxNorm: 849171 1 Tablet(s) PO UD daily except none on Tuesdays and 03/13/2012 04/08/2012 Inactive Premarin 0.625 mg/gram Vaginal Cream RxNorm: 325171 1 Application VAG 1 applicator per vagina 3 times per week 02/20/2012 02/13/2013 Inactive omeprazole 20 mg tablet,delayed release RxNorm: 564924 1 Tablet(s) PO BID 02/13/2012 04/08/2012 Inactive Vesicare 10 mg tablet RxNorm: 489323 1 Tablet(s) PO QHS 02/13/2012 02/06/2013 Inactive Diflucan 150 mg tablet RxNorm: 156388 1 Tablet(s) PO daily 02/13/2012 02/19/2012 Inactive omeprazole 20 mg tablet,delayed release RxNorm: 591437 1 Tablet(s) PO BID 01/06/2012 02/12/2012 Inactive Calcium 600 + D(3) 600 mg (1,500)-200 unit Tab RxNorm: 284056 2 Tablet(s) PO BID 01/06/2012 08/31/2015 Inactive diltiazem 90 mg tablet RxNorm: 241832 1/2 Tablet(s) PO QPM 12/26/2011 02/12/2013 Inactive also 180 q am diltiazem ER 180 mg Cap RxNorm: 538613 1 Capsule(s) PO QAM 12/26/2011 04/08/2012 Inactive 45mg q hs Flagyl 500 mg Tab RxNorm: 547754 1 Tablet(s) PO BID 12/14/2011 12/20/2011 Inactive dicyclomine 10 mg Cap RxNorm: 387767 1 Capsule(s) PO AC & HS 12/01/2011 12/25/2011 Inactive Levaquin 500 mg Tab RxNorm: 540154 1 Tablet(s) PO daily 11/23/2011 11/29/2011 Inactive Rocephin 500 mg Solution for Injection RxNorm: 8944243 Inj 11/23/2011 11/23/2011 Inactive acyclovir 400 mg Tab RxNorm: 079133 1 Tablet(s) PO QID 11/10/2011 11/19/2011 Inactive acyclovir 400 mg Tab RxNorm: 656358 1 Tablet(s) PO QID 11/10/2011 11/09/2011 Inactive lisinopril 20 mg Tab RxNorm: 498166 1 Tablet(s) PO daily 10/03/2011 11/27/2011 Inactive lisinopril 20 mg Tab RxNorm: 247376 1 Tablet(s) PO daily 08/08/2011 10/02/2011 Inactive Reclast 5 mg/100 mL IV RxNorm: 542978 Milliliter(s) IV Yearly 06/08/2011 01/16/[address] Hansen manages Rocephin 500 mg Solution for Injection RxNorm: 8848871 1 Milliliter(s) Inj 03/04/2011 08/08/2011 Inactive Ceftin 500 mg Tab RxNorm: 163587 1 Tablet(s) PO BID 03/04/2011 08/08/2011 Inactive Vitamin D3 1,000 unit tablet RxNorm: 071067 2 Tablet(s) PO daily No Start Date Active Stool Softener 100 mg tablet RxNorm: 4246606 2 Tablet(s) PO QHS No Start Date Active Beano tablet RxNorm: 2-3 Tablet(s) PO as needed No Start Date Active Probiotic Pearls 15 mg (1 billion cell) capsule,delayed release RxNorm: 1 Capsule(s) PO daily No Start Date Active Lipitor 10 mg tablet RxNorm: 061520 1 Tablet(s) PO daily No Start Date Active Miralax 17 gram oral powder packet RxNorm: 214090 1/2 packet PO QHS No Start Date Active multivitamin Tab RxNorm: 1 Tablet(s) PO daily No Start Date Active Tylenol Extra Strength 500 mg tablet RxNorm: 366580 2 Tablet(s) PO as needed No Start Date Active Combigan 0.2 %-0.5 % eye drops RxNorm: 422569 1 Drop(s) OPH BID No Start Date Active 1 drop twice daily left eye Lexapro 5 mg tablet RxNorm: 098236 1 Tablet(s) PO daily No Start Date Active Tatiana Allergy 180 mg tablet RxNorm: 894510 1 Tablet(s) PO daily No Start Date Active Lotemax 0.5 % eye drops,suspension RxNorm: 368720 1 Drop(s) OPH right eye BID No Start Date Active Levoxyl 50 mcg tablet RxNorm: 756615 1 Tablet(s) PO daily No Start Date 01/15/2013 Inactive lisinopril-hydrochlorothiazide 20 mg-25 mg Tab RxNorm: 697913 1 Tablet(s) PO daily No Start Date 08/07/2011 Inactive Metanx 3 mg-35 mg-2 mg tablet RxNorm: 1 Tablet(s) PO daily No Start Date 04/17/2012 Inactive diltiazem CD 120 mg capsule,extended release 24 hr RxNorm: 890889 1 Capsule(s) PO daily No Start Date 09/28/2015 Inactive lisinopril 20 mg tablet RxNorm: 975609 Tablet(s) PO No Start Date Active Lumigan 0.01 % Eye Drops RxNorm: 9548542 1 Drop(s) OPH daily Left eye No Start Date 12/10/2013 Inactive prednisolone acetate 1 % Eye Drops, Susp RxNorm: 9776514 1 Drop(s) OPH BID 1 drop right eye am and hs No Start Date 11/02/2015 Inactive Eliquis 5 mg tablet RxNorm: 7570259 1 Tablet(s) PO BID No Start Date 06/08/2016 Inactive potassium gluconate (bulk) Misc RxNorm: Miscellaneous No Start Date 12/25/2011 Inactive Calcium 600 + D(3) 600 mg (1,500)-200 unit Tab RxNorm: 885553 3 Tablet(s) PO daily No Start Date 2012 Inactive Zyrtec 10 mg tablet RxNorm: 4234138 1 Tablet(s) PO daily No Start Date 08/02/2016 Inactive Synthroid 100 mcg tablet RxNorm: 924630 1 Tablet(s) PO daily No Start Date 09/04/2013 Inactive metoprolol succinate ER 50 mg tablet,extended release 24 hr RxNorm: 591286 1 Tablet(s) PO daily No Start Date 03/23/2016 Inactive Carafate 100 mg/mL oral suspension RxNorm: 962300 2 Teaspoon(s) PO as needed with reflux symptoms No Start Date 06/03/2018 Inactive Metanx 3 mg-35 mg-2 mg tablet RxNorm: 1 Tablet(s) PO daily 2pm No Start Date 11/02/2015 Inactive Lexapro 5 mg tablet RxNorm: 720989 1 Tablet(s) PO daily No Start Date 08/18/2015 Inactive Iron (dried) oral RxNorm: 40796 oral No Start Date 11/02/2015 Inactive timolol 0.5 % Eye Drops RxNorm: 670029 1 Drop(s) OPH daily left eye No Start Date 12/18/2013 Inactive multivitamin Cap RxNorm: 1 Capsule(s) PO daily No Start Date 12/25/2011 Inactive dicyclomine 10 mg Cap RxNorm: 664338 2 Capsule(s) PO daily No Start Date 11/30/2011 Inactive silver sulfadiazine 1 % Topical Cream RxNorm: 140216 TOP apply to affected area with each dressing change No Start Date 12/18/2012 Inactive magnesium oxide 400 mg Tab RxNorm: 145609 1 Tablet(s) PO daily No Start Date 11/02/2015 Inactive Pradaxa 75 mg Cap RxNorm: 3057275 1 Capsule(s) PO BID No Start Date 04/09/2012 Inactive magnesium oxide 400 mg Tab RxNorm: 082059 2 Tablet(s) PO daily magnesium plus zinc No Start Date 12/25/2011 Inactive biotin 1000 mg RxNorm: 1 PO daily No Start Date 12/25/2011 Inactive Synthroid 50 mcg Tab RxNorm: 685379 Tablet(s) PO No Start Date 12/25/2011 Inactive diltiazem ER 180 mg Cap RxNorm: 709053 1 Capsule(s) PO daily No Start Date 12/25/2011 Inactive 1 D 3 1000 iu Oral RxNorm: Oral No Start Date 12/25/2011 Inactive Coumadin 2 mg tablet RxNorm: 541390 Tablet(s) PO No Start Date 04/24/2012 Inactive 5mg tue [id number] mon fri sat sun(has 2mg and 1 mg tab) dicyclomine 20 mg tablet RxNorm: 746933 Tablet(s) PO No Start Date 04/17/2012 Inactive one ac dinner and up to tid prn lactobacillus acidophilus tablet RxNorm: 1 Tablet(s) PO daily No Start Date 11/03/2015 Inactive Eliquis 2.5 mg tablet RxNorm: 5268028 1 Tablet(s) PO BID No Start Date 07/25/2017 Inactive Levoxyl 75 mcg Tab RxNorm: 454341 1 Tablet(s) PO daily No Start Date 10/02/2011 Inactive digoxin 125 mcg tablet RxNorm: 017770 1 Tablet(s) PO daily No Start Date 03/12/2012 Inactive pantoprazole 40 mg tablet,delayed release RxNorm: 580790 1 Tablet(s) PO BID No Start Date 01/04/2016 Inactive cyclobenzaprine 5 mg tablet RxNorm: 655414 1/2 Tablet(s) PO Q8 PRN No Start Date 10/24/2016 Inactive diltiazem 90 mg Tab RxNorm: 397225 1/2 Tablet(s) PO QPM No Start Date 12/25/2011 Inactive Mirapex 1 mg Tab RxNorm: 652298 1 Tablet(s) PO QHS No Start Date 12/25/2011 Inactive Xanax 0.25 mg tablet RxNorm: 063748 1 Tablet(s) PO Q6 PRN No Start Date 11/10/2013 Inactive Premarin 0.625 mg/gram Vaginal Cream RxNorm: 346947 1 Application VAG 1 applicator per vagina 3 times per week No Start Date 02/19/2012 Inactive Synthroid 75 mcg Tab RxNorm: 107321 1 Tablet(s) PO daily No Start Date 04/17/2012 Inactive lisinopril 40 mg Tab RxNorm: 205454 1 Tablet(s) PO daily No Start Date 12/25/2011 Inactive Glucosamine Chondroitin Complex Advanced [id number]-1.65mg Tab RxNorm: 2 Tablet(s) PO daily No Start Date 08/08/2011 Inactive famotidine 20 mg tablet RxNorm: 440916 1 Tablet(s) PO QAM No Start Date 11/02/2015 Inactive cranberry extract 250 mg Tab RxNorm: 948782 2 Tablet(s) PO daily No Start Date 08/08/2011 Inactive Vitamin D3 1,000 unit capsule RxNorm: 801337 1 Capsule(s) PO daily No Start Date 08/31/2015 Inactive aspirin 81 mg Tab, Delayed Release RxNorm: 447100 1 Tablet(s) PO daily No Start Date 08/31/2015 Inactive diltiazem ER 120 mg capsule,extended release RxNorm: 016684 1 Capsule(s) PO daily patient would like 4 months at a time No Start Date 06/02/2013 Inactive omeprazole 20 mg Tab, Delayed Release RxNorm: 907894 2 Tablet(s) PO QHS No Start Date 2012 Inactive lisinopril 10 mg tablet RxNorm: 840131 1/2 Tablet(s) PO daily No Start Date 10/16/2012 Inactive Pred Forte 1 % Eye Drops RxNorm: 208645 1 Drop(s) OPH daily right eye No Start Date 12/25/2013 Inactive calcium carbonate 400 mg Chewable Tab RxNorm: 143059 1 Tablet(s) PO daily No Start Date 08/08/2011 Inactive Vesicare 10 mg tablet RxNorm: 575605 1 Tablet(s) PO QHS No Start Date 02/12/2012 Inactive Symbicort 160 mcg-4.5 mcg/actuation HFA aerosol inhaler RxNorm: 3613422 2 Puff(s) INH BID No Start Date 12/13/2017 Inactive potassium 99 mg tablet RxNorm: 1 Tablet(s) PO QPM No Start Date 12/25/2013 Inactive timolol 0.25 % Eye Drops RxNorm: 641520 1 Drop(s) OPH daily Left eye No Start Date 04/17/2012 Inactive diltiazem ER 90 mg capsule,extended release 12 hr RxNorm: 422360 1/2 Capsule(s) PO QPM No Start Date 04/28/2014 Inactive cyclobenzaprine 5 mg Tab RxNorm: 903849 1/2-1 Tablet(s) PO Q8 PRN No Start Date 12/25/2011 Inactive 1/2 - 1 tab q 8hrs prn muscle spasms Medication Administered Medication Codes Instructions Start Date Status Influenza Virus Vaccine 0.5 mL RxNorm: 04/23/2013 No longer Active Rocephin 500 mg Solution for Injection RxNorm: 0728314 11/23/2011 No longer Active Immunizations Vaccine Codes [...] Code Result Date C RAP A SC 1300301 Strep A Negative 11/30/2018 Electrolytes Ord62 NA 132 mEq/L 09/25/2018 Electrolytes Ord62 K 4.1 mEq/L 09/25/2018 Electrolytes Ord62 CL 98 mEq/L 09/25/2018 Electrolytes Ord62 CO2 26.0 mEq/L 09/25/2018 Electrolytes Ord62 ANION GAP 12 09/25/2018 Comp Metabolic Uoc116 NA 130 mEq/L 09/12/2018 Comp Metabolic Uvb626 K 4.2 mEq/L 09/12/2018 Comp Metabolic Sza890 CL 98 mEq/L 09/12/2018 Comp Metabolic Pov058 CO2 23.0 mEq/L 09/12/2018 Comp Metabolic Mrd686 ANION GAP 13 09/12/2018 Comp Metabolic Zbx243 GLUCOSE 129 mg/dL 09/12/2018 Comp Metabolic Hun833 Creat 1.0 mg/dL 09/12/2018 Comp Metabolic Iio361 eGFR 58 ml/min/1.73m2 09/12/2018 Comp Metabolic Ymi556 BUN 28 mg/dL 09/12/2018 Comp Metabolic Nki338 B/C Ratio 28.9 Ratio 09/12/2018 Comp Metabolic Awe235 CALCIUM 9.1 mg/dL 09/12/2018 Comp Metabolic Ljm954 ALK PHOS 59 U/L 09/12/2018 Comp Metabolic Zsp203 AST(SGOT) 21 U/L 09/12/2018 Comp Metabolic Jhy404 ALT(SGPT) 19 U/L 09/12/2018 Comp Metabolic Hlr080 BILI T 0.8 mg/dL 09/12/2018 Comp Metabolic Rkm485 ALBUMIN 3.9 g/dL 09/12/2018 Comp Metabolic Llf790 TPRO 6.5 g/dL 09/12/2018 Comp Metabolic Cgd267 GLOB 2.6 g/dL 09/12/2018 Comp Metabolic Thu562 A/G Ratio 1.5 Ratio 09/12/2018 Comp Metabolic Ntb791 Osmo 268 mOsmo 09/12/2018 Tsh Ord6 TSH (3rd IS) 12.84 uIU/mL 09/12/2018 Influenza A+B Ysy256 Influ A+B Negative 09/12/2018 Cbc With Differential [...] 12.3 % 09/12/2018 Cbc With Differential Ord2 [place]% 12.0 % 09/12/2018 Cbc With Differential Ord2 [...] 0.85 K/ul 09/12/2018 Cbc With Differential Ord2 [place] ABS# 0.8 K/ul 09/12/2018 Cbc With Differential Ord2 Eos ABS# 0.1 K/ul 09/12/2018 Cbc With Differential Ord2 Baso ABS# 0.0 K/ul 09/12/2018 Free T4 Cdh864 FREE T4 1.10 ng/dL 09/12/2018 Free T4 Gof357 FREE T4 1.19 ng/dL 05/08/2018 Digoxin Ord9 DIGOXIN 0.6 NG/ML 05/08/2018 Tsh Ord6 TSH (3rd IS) 10.58 uIU/mL 05/08/2018 Tsh Ord6 TSH (3rd IS) 1.07 uIU/mL 01/31/2018 Free T4 Mvg537 FREE T4 1.63 ng/dL 01/31/2018 Digoxin Ord9 DIGOXIN 0.8 NG/ML 01/31/2018 C RAP A SC [id number] Strep A Negative 11/21/2016 Thyroid Antibodies 260722 THYROGLOBULIN ANTIBODY . 11/04/2016 Thyroid Antibodies 568458 THYROGLOBULIN ANTIBODY 919 IU/mL 11/04/2016 Thyroid Antibodies 466185 THYROID PEROXIDASE (TPO) AB . 11/04/2016 Thyroid Antibodies 266910 THYROID PEROXIDASE (TPO) AB 10 IU/mL 11/04/2016 Total T3 Ord42 TT3 0.64 ng/ml 11/03/2016 Free T4 Wcq393 FREE T4 1.39 ng/dL 11/02/2016 Tsh Ord6 [...] Differential Ord2 RDW 13.8 % 05/26/2015 Pt Tsk5674 PT 25.0 seconds 05/26/2015 Pt Myb0980 INR 2.4 05/26/2015 Pt Rci0278 Low Intensity - 1.5-2.0 05/26/2015 Pt Xho1802 Mod intensity - 2.0-3.0 05/26/2015 Pt Cjs7738 Hi intensity - 3.0-4.0 05/26/2015 Uric Acid [...] Digoxin Ord9 DIGOXIN 0.6 NG/ML 05/06/2015 Pt Xyy7980 PT 23.3 seconds 05/06/2015 Pt Chf8925 INR 2.1 05/06/2015 Pt Axu1291 Low Intensity - 1.5-2.0 05/06/2015 Pt Qjn7863 Mod intensity - 2.0-3.0 05/06/2015 Pt Log8979 Hi intensity - 3.0-4.0 05/06/2015 Free T4 Shz231 FREE T4 1.65 ng/dL 05/06/2015 Comp Metabolic Xys587 NA 132 mEq/L 05/06/2015 Comp Metabolic Zvd019 K 4.1 mEq/L 05/06/2015 Comp Metabolic Wba512 CL 98 mEq/L 05/06/2015 Comp Metabolic Jxw785 CO2 27.0 mEq/L 05/06/2015 Comp Metabolic Gty939 ANION GAP 11 05/06/2015 Comp Metabolic Pkl045 GLUCOSE 71 mg/dL 05/06/2015 Comp Metabolic Wew625 Creat 0.7 mg/dL 05/06/2015 Comp Metabolic Osi039 eGFR 82 ml/min/1.73m2 05/06/2015 Comp Metabolic Vsu605 BUN 16 mg/dL 05/06/2015 Comp Metabolic Tkq341 B/C Ratio 22.2 Ratio 05/06/2015 Comp Metabolic Lba599 CALCIUM 9.4 mg/dL 05/06/2015 Comp Metabolic Une158 ALK PHOS 60 U/L 05/06/2015 Comp Metabolic Xvk226 AST(SGOT) 22 U/L 05/06/2015 Comp Metabolic Zpn814 ALT(SGPT) 24 U/L 05/06/2015 Comp Metabolic Gnn667 BILI T 0.8 mg/dL 05/06/2015 Comp Metabolic Qek424 ALBUMIN 4.3 g/dL 05/06/2015 Comp Metabolic Dav794 TPRO 7.6 g/dL 05/06/2015 Comp Metabolic Seb638 GLOB 3.3 g/dL 05/06/2015 Comp Metabolic Kia228 A/G Ratio 1.3 Ratio 05/06/2015 Comp Metabolic Igd462 Osmo 264 mOsmo 05/06/2015 DIGOXIN 9858573 DIGOXIN 1.1 NG/ML 05/15/2013 PT/MC 8979429 PRO TIME 21.7 SEC 05/15/2013 PT/MC 6427323 INR MCMC 2.0 05/15/2013 CHEM 14 3646272 AST 24 U/L 04/23/2013 CHEM 14 0185571 ALT 31 IU/L 04/23/2013 CHEM 14 2163296 BUN 13 MG/DL 04/23/2013 CHEM 14 6651336 ALBUMIN 4.1 GM/DL 04/23/2013 CHEM 14 4233429 CHLORIDE 103 MMOL/L 04/23/2013 CHEM 14 0916357 BILI TOT 0.5 MG/DL 04/23/2013 CHEM 14 5148668 ALK PHOS 44 U/L 04/23/2013 CHEM 14 6047467 SODIUM 137 MMOL/L 04/23/2013 CHEM 14 7270521 CREATININE 0.61 MG/DL 04/23/2013 CHEM 14 7847313 CALCIUM 9.5 MG/DL 04/23/2013 CHEM 14 1639342 POTASSIUM 4.0 MMOL/L 04/23/2013 CHEM 14 5074890 PROT TOT 6.6 GM/DL 04/23/2013 CHEM 14 9492735 GLUCOSE 99 MG/DL 04/23/2013 CHEM 14 3125115 BICARB 27 MMOL/L 04/23/2013 CHEM 14 6019622 ANION GAP 7 MEQ/L 04/23/2013 GFR CALC 2927478 GFR AA >60 ML/MIN 04/23/2013 GFR CALC 4456367 GFR NON-AA >60 ML/MIN 04/23/2013 TSH 8782884 TSH 4.204 uIU/ML 04/23/2013 CBC 6188864 WBC 6.7 10e9/L 04/23/2013 CBC 9597000 RBC 4.19 10e12/L 04/23/2013 CBC 3444218 HGB 13.2 g/dL 04/23/2013 CBC 8031753 HCT DET 39.2 % 04/23/2013 CBC 9643106 MCV 93.6 fL 04/23/2013 CBC 3283990 MCH 31.5 pg 04/23/2013 CBC 9819252 MCHC 33.7 g/dL 04/23/2013 CBC 5149442 PLT 202 10e9/L 04/23/2013 CBC 2455808 MPV 11.4 fL 04/23/2013 CBC 7826183 YANIRA % 70.5 % 04/23/2013 CBC 5684221 LY % 19.6 % 04/23/2013 CBC 5253788 MON % 8.2 % 04/23/2013 CBC 6278649 EOS % 1.6 % 04/23/2013 CBC 2786512 BASO % 0.1 % 04/23/2013 CBC 2659696 RDW 13.7 % 04/23/2013 CBC 7177873 ABS YANIRA 4.72 10e9/L 04/23/2013 CBC 2531913 ABS LYMPH 1.31 10e9/L 04/23/2013 CBC 8341926 ABS MONO 0.55 10e9/L 04/23/2013 CBC 7673922 ABS EOS 0.11 10e9/L 04/23/2013 CBC 7164785 ABS BASO 0.01 10e9/L 04/23/2013 CBC 0828253 RDW-SD 45.7 fL 04/23/2013 PT/MC 3135003 PRO TIME 13.4 SEC 12/17/2012 PT/MC 7854025 INR MCMC 1.0 12/17/2012 PT/MC 8754283 PRO TIME 16.6 SEC 12/14/2012 PT/MC 1926777 INR MCMC 1.4 12/14/2012 PT/MC 5835687 PRO TIME 27.2 SEC 12/11/2012 PT/MC 5370984 INR MCMC 2.6 12/11/2012 DIGOXIN 7513708 DIGOXIN 2.1 NG/ML 03/08/2012 GFR CALC 8477213 GFR AA >60 ML/MIN 03/08/2012 GFR CALC 2782590 GFR NON-AA >60 ML/MIN 03/08/2012 CHEM 14 6405878 AST 16 U/L 03/08/2012 CHEM 14 4917674 ALT 14 IU/L 03/08/2012 CHEM 14 3831801 BUN 10 MG/DL 03/08/2012 CHEM 14 7103502 ALBUMIN 4.2 GM/DL 03/08/2012 CHEM 14 8081170 CHLORIDE 100 MMOL/L 03/08/2012 CHEM 14 6424437 BILI TOT 0.5 MG/DL 03/08/2012 CHEM 14 6278397 ALK PHOS 59 U/L 03/08/2012 CHEM 14 1998275 SODIUM 136 MMOL/L 03/08/2012 CHEM 14 4144570 CREATININE 0.65 MG/DL 03/08/2012 CHEM 14 6024009 CALCIUM 9.4 MG/DL 03/08/2012 CHEM 14 3070835 POTASSIUM 3.9 MMOL/L 03/08/2012 CHEM 14 8637605 PROT TOT 6.7 GM/DL 03/08/2012 CHEM 14 8636564 GLUCOSE 90 MG/DL 03/08/2012 CHEM 14 2502579 BICARB 30 MMOL/L 03/08/2012 CHEM 14 2504486 ANION GAP 6 MEQ/L 03/08/2012 CHEM 14 6086657 AST 16 U/L 11/23/2011 CHEM 14 3835426 ALT 14 IU/L 11/23/2011 CHEM 14 3841228 BUN 11 MG/DL 11/23/2011 CHEM 14 5050179 ALBUMIN 4.1 GM/DL 11/23/2011 CHEM 14 6454455 CHLORIDE 100 MMOL/L 11/23/2011 CHEM 14 8996932 BILI TOT 0.5 MG/DL 11/23/2011 CHEM 14 0424544 ALK PHOS 50 U/L 11/23/2011 CHEM 14 9306022 SODIUM 135 MMOL/L 11/23/2011 CHEM 14 1806130 CREATININE 0.57 MG/DL 11/23/2011 CHEM 14 0808743 CALCIUM 9.1 MG/DL 11/23/2011 CHEM 14 4085021 POTASSIUM 4.5 MMOL/L 11/23/2011 CHEM 14 0180223 PROT TOT 6.5 GM/DL 11/23/2011 CHEM 14 9672048 GLUCOSE 89 MG/DL 11/23/2011 CHEM 14 4292636 BICARB 28 MMOL/L 11/23/2011 CHEM 14 1674963 ANION GAP 7 MEQ/L 11/23/2011 GFR CALC 1608354 GFR AA >60 ML/MIN 11/23/2011 GFR CALC 9928749 GFR NON-AA >60 ML/MIN 11/23/2011 CBC 0822160 WBC 5.1 10e9/L 11/23/2011 CBC 5870169 RBC 4.06 10e12/L 11/23/2011 CBC 9256218 HGB 12.5 g/dL 11/23/2011 CBC 1778047 HCT DET 37.3 % 11/23/2011 CBC 8259889 MCV 91.9 fL 11/23/2011 CBC 4730583 MCH 30.8 pg 11/23/2011 CBC 6099367 MCHC 33.5 g/dL 11/23/2011 CBC 8385801 PLT 222 10e9/L 11/23/2011 CBC 0223960 MPV 10.8 fL 11/23/2011 CBC 5817213 YANIRA % 64.2 % 11/23/2011 CBC 2728286 LY % 22.3 % 11/23/2011 CBC 7264003 MON % 11.3 % 11/23/2011 CBC 9486450 EOS % 1.8 % 11/23/2011 CBC 6120873 BASO % 0.4 % 11/23/2011 CBC 0334624 RDW 13.6 % 11/23/2011 CBC 0070934 ABS YANRIA 3.27 10e9/L 11/23/2011 CBC 4491396 ABS LYMPH 1.14 10e9/L 11/23/2011 CBC 6880850 ABS MONO 0.58 10e9/L 11/23/2011 CBC 8780724 ABS EOS 0.09 10e9/L 11/23/2011 CBC 5851629 ABS BASO 0.02 10e9/L 11/23/2011 CBC 4899063 RDW-SD 44.5 fL 11/23/2011 UA 71671 Specific [place] 1.005 03/04/2011 UA 98340 PH 6 03/04/2011 UA 55842 GLUCOSE N 03/04/2011 UA 73559 Protein N 03/04/2011 UA 74890 Blood ++ 03/04/2011 UA 24832 Bilirubin N 03/04/2011 UA 48234 Ketones N 03/04/2011 UA 41653 Urobilinogen N 03/04/2011 UA 49270 Nitrite N 03/04/2011 UA 93465 Leukocytes N 03/04/2011 URINALYSIS NONAUTO W/O SCOPE 36731 Specific [place] 1.010 DateTime(Free Text in Aprima) URINALYSIS NONAUTO W/O SCOPE 43220 PH 6.5 DateTime(Free Text in Aprima) URINALYSIS NONAUTO W/O SCOPE 13447 GLUCOSE neg DateTime(Free Text in Aprima) URINALYSIS NONAUTO W/O SCOPE 07307 Protein neg DateTime(Free Text in Aprima) URINALYSIS NONAUTO W/O SCOPE 67323 Blood 3+ DateTime(Free Text in Aprima) URINALYSIS NONAUTO W/O SCOPE 15489 Bilirubin neg DateTime(Free Text in Aprima) URINALYSIS NONAUTO W/O SCOPE 39708 Ketones neg DateTime(Free Text in Aprima) URINALYSIS NONAUTO W/O SCOPE 92208 Urobilinogen neg DateTime(Free Text in Aprima) URINALYSIS NONAUTO W/O SCOPE 80685 Nitrite neg DateTime(Free Text in Aprima) URINALYSIS NONAUTO W/O SCOPE 40076 Leukocytes neg DateTime(Free Text in Aprima) URINALYSIS NONAUTO W/O SCOPE 35828 Specific [place] 1.010 DateTime(Free Text in Aprima) URINALYSIS NONAUTO W/O SCOPE 63623 PH 5 DateTime(Free Text in Aprima) URINALYSIS NONAUTO W/O SCOPE 59828 GLUCOSE neg DateTime(Free Text in Aprima) URINALYSIS NONAUTO W/O SCOPE 77983 Protein neg DateTime(Free Text in Aprima) URINALYSIS NONAUTO W/O SCOPE 61920 Blood 3+ DateTime(Free Text in Aprima) URINALYSIS NONAUTO W/O SCOPE 87168 Bilirubin neg DateTime(Free Text in Aprima) URINALYSIS NONAUTO W/O SCOPE 67724 Ketones neg DateTime(Free Text in Aprima) URINALYSIS NONAUTO W/O SCOPE 14801 Urobilinogen neg DateTime(Free Text in Aprima) URINALYSIS NONAUTO W/O SCOPE 66408 Nitrite neg DateTime(Free Text in Aprima) URINALYSIS NONAUTO W/O SCOPE 76502 Leukocytes neg DateTime(Free Text in Aprima) URINALYSIS NONAUTO W/O SCOPE 15629 Specific [place] 1.005 DateTime(Free Text in Aprima) URINALYSIS NONAUTO W/O SCOPE 92695 PH 8.5 DateTime(Free Text in Aprima) URINALYSIS NONAUTO W/O SCOPE 14970 GLUCOSE neg DateTime(Free Text in Aprima) URINALYSIS NONAUTO W/O SCOPE 20644 Protein neg DateTime(Free Text in Aprima) URINALYSIS NONAUTO W/O SCOPE 72413 Blood 1+ DateTime(Free Text in Aprima) URINALYSIS NONAUTO W/O SCOPE 01502 Bilirubin neg DateTime(Free Text in Aprima) URINALYSIS NONAUTO W/O SCOPE 90793 Ketones neg DateTime(Free Text in Aprima) URINALYSIS NONAUTO W/O SCOPE 12287 Urobilinogen neg DateTime(Free Text in Aprima) URINALYSIS NONAUTO W/O SCOPE 21685 Nitrite neg DateTime(Free Text in Aprima) URINALYSIS NONAUTO W/O SCOPE 90737 Leukocytes neg DateTime(Free Text in Aprima) URINALYSIS NONAUTO W/O SCOPE 77803 Specific [place] 1.005 DateTime(Free Text in Aprima) URINALYSIS NONAUTO W/O SCOPE 41077 PH 7 DateTime(Free Text in Aprima) URINALYSIS NONAUTO W/O SCOPE 25813 GLUCOSE neg DateTime(Free Text in Aprima) URINALYSIS NONAUTO W/O SCOPE 68460 Protein neg DateTime(Free Text in Aprima) URINALYSIS NONAUTO W/O SCOPE 88014 Blood large DateTime(Free Text in Aprima) URINALYSIS NONAUTO W/O SCOPE 13056 Bilirubin neg DateTime(Free Text in Aprima) URINALYSIS NONAUTO W/O SCOPE 44418 Ketones neg DateTime(Free Text in Aprima) URINALYSIS NONAUTO W/O SCOPE 01807 Urobilinogen 0.2 DateTime(Free Text in Aprima) URINALYSIS NONAUTO W/O SCOPE 39780 Nitrite neg DateTime(Free Text in Aprima) URINALYSIS NONAUTO W/O SCOPE 67604 Leukocytes neg DateTime(Free Text in Aprima) URINALYSIS NONAUTO W/O SCOPE 14980 Specific [place] 1.005 DateTime(Free Text in Aprima) URINALYSIS NONAUTO W/O SCOPE 11174 PH 7.5 DateTime(Free Text in Aprima) URINALYSIS NONAUTO W/O SCOPE 78345 GLUCOSE DateTime(Free Text in Aprima) URINALYSIS NONAUTO W/O SCOPE 28067 Protein trace DateTime(Free Text in Aprima) URINALYSIS NONAUTO W/O SCOPE 99048 Blood 4+ DateTime(Free Text in Aprima) URINALYSIS NONAUTO W/O SCOPE 00840 Bilirubin DateTime(Free Text in Aprima) URINALYSIS NONAUTO W/O SCOPE 27568 Ketones DateTime(Free Text in Aprima) URINALYSIS NONAUTO W/O SCOPE 53263 Urobilinogen DateTime(Free Text in Aprima) URINALYSIS NONAUTO W/O SCOPE 58166 Nitrite DateTime(Free Text in Aprima) URINALYSIS NONAUTO W/O SCOPE 17340 Leukocytes trace DateTime(Free Text in Aprima) Review [...] FLU VACC PRSV FREE INC ANTIG CPT-4: 70358 03/27/2017 PPPS, SUBSEQ VISIT CPT- 4: G0439 01/23/2017 URINALYSIS NONAUTO W/O SCOPE CPT-4: 70984 05/17/2016 ADMIN INFLUENZA VIRUS VAC CPT-4: G0008 03/24/2016 FLU VACC PRSV FREE INC ANTIG CPT-4: 66039 03/24/2016 ADMIN PNEUMOCOCCAL VACCINE SNOMED CT: 17373917 CPT-4: G0009 05/13/2015 PNEUMOCOCCAL VACC [address]: 06512019 CPT-4: 96110 05/13/2015 Pneumococcal Polysaccharide Vaccine, 23-Valent, Ad Assigned to/Mela Bledsoe CPT-4: 55341Dzehmed 07/11/2014 ADMIN PNEUMOCOCCAL VACCINE SNOMED CT: 05763909 CPT-4: G0009 07/11/2014 URINALYSIS NONAUTO W/O SCOPE CPT-4: 75315 05/14/2014 URINALYSIS NONAUTO W/O SCOPE CPT-4: 32526 05/06/2014 URINALYSIS NONAUTO W/O SCOPE CPT-4: 28149 04/29/2014 ADMIN INFLUENZA VIRUS VAC CPT-4: G0008 03/20/2014 FLU VAC NO PRSV 4 SCOTT 3 YRS+ Assigned to/Mela Bledsoe CPT-4: 81375Vhdwvdc 03/20/2014 URINALYSIS NONAUTO W/O SCOPE CPT-4: 44768 07/29/2013 URINALYSIS NONAUTO W/O SCOPE CPT-4: 97275 07/01/2013 URINALYSIS NONAUTO W/O SCOPE CPT-4: 62887 06/20/2013 ROUTINE VENIPUNCTURE CPT- 4: 34329 05/15/2013 ROUTINE VENIPUNCTURE CPT- 4: 38850 04/23/2013 ADMIN INFLUENZA VIRUS VAC CPT-4: G0008 04/23/2013 FLULAVAL VACC, 3 YRS & >, IM CPT-4: Q2036 04/23/2013 ROUTINE VENIPUNCTURE CPT- 4: 00244 12/17/2012 ROUTINE VENIPUNCTURE CPT- 4: 41869 12/14/2012 ROUTINE VENIPUNCTURE CPT- 4: 21248 12/11/2012 PRESCRIP TRANSMIT VIA ERX SY CPT-4: G8553 12/11/2012 PRESCRIP TRANSMIT VIA ERX SY CPT-4: G8553 10/30/2012 URINALYSIS NONAUTO W/O SCOPE CPT-4: 90097 09/13/2012 ADMIN INFLUENZA VIRUS VAC CPT-4: G0008 04/18/2012 FLULAVAL VACC, 3 YRS & >, IM CPT-4: Q2036 04/18/2012 URINALYSIS NONAUTO W/O SCOPE CPT-4: 32834 03/13/2012 ROUTINE VENIPUNCTURE CPT- 4: 32223 03/08/2012 URINALYSIS NONAUTO W/O SCOPE CPT-4: 04271 02/13/2012 PRESCRIP TRANSMIT VIA ERX SY CPT-4: G8553 02/13/2012 ROCEPHIN, PER 250 MG CPT- 4: J0696 11/23/2011 ROUTINE VENIPUNCTURE CPT- 4: 22745 11/23/2011 URINALYSIS NONAUTO W/O SCOPE CPT-4: 97794 11/23/2011 PRESCRIP TRANSMIT VIA ERX SY CPT-4: G8553 11/23/2011 REMOVE IMPACTED EAR WAX UNI CPT-4: 85108 10/17/2011 PRESCRIP TRANSMIT VIA ERX SY CPT-4: G8553 10/03/2011 PRESCRIP TRANSMIT VIA ERX SY CPT-4: G8553 08/08/2011 URINALYSIS NONAUTO W/O SCOPE CPT-4: 95706 03/15/2011 URINALYSIS NONAUTO W/O SCOPE CPT-4: 55570 03/04/2011 THER/PROPH/DIAG INJ SC/IM CPT-4: 40098 03/04/2011 ROCEPHIN, PER 250 MG CPT- 4: J0696 03/04/2011 Vital Signs Date Vital 12/10/2018 Blood Pressure 1: 120/56 Code: 8480-6 BMI: 19.9 Code: 10087-2 Heart Rate 1: 103 bpm Height: 5' SpO2: 93% Weight: 102 lbs 12/06/2018 Blood Pressure 1: 118/66 Code: 8480-6 BMI: 20.1 Code: 18957-7 Heart Rate 1: 134 bpm Height: 5' SpO2: 98% Weight: 103 lbs 11/30/2018 Blood Pressure 1: 122/64 Code: 8480-6 Height: Weight: 10/31/2018 Blood Pressure 1: 122/66 Code: 8480-6 BMI: 20.5 Code: 93711-9 Heart Rate 1: 83 bpm Height: 5' SpO2: 99% Weight: 105 lbs 10/09/2018 Blood Pressure 1: 126/60 Code: 8480-6 BMI: 19.9 Code: 99812-6 Heart Rate 1: 66 bpm Height: 5' SpO2: 96% Weight: 102 lbs 09/12/2018 Blood Pressure 1: 156/72 Code: 8480-6 BMI: 19.9 Code: 46662-3 Heart Rate 1: 68 bpm Height: 5' Temperature: 36.6 (C) / 97.8 (F) Weight: 102 lbs 08/14/2018 Blood Pressure 1: 136/68 Code: 8480-6 BMI: 21.1 Code: 60250-8 Heart Rate 1: 92 bpm Height: 5' Weight: 108 lbs 07/26/2018 Blood Pressure 1: 128/76 Code: 8480-6 BMI: 21.1 Code: 73594-9 Heart Rate 1: 88 bpm Height: 5' Weight: 108 lbs 06/04/2018 Blood Pressure 1: 124/72 Code: 8480-6 BMI: 21.3 Code: 46981-2 Heart Rate 1: 98 bpm Height: 5' Weight: 109 lbs 01/31/2018 Blood Pressure 1: 116/68 Code: 8480-6 BMI: 21.1 Code: 58103-9 Heart Rate 1: 89 bpm Height: 5' SpO2: 98% Weight: 108 lbs 01/17/2018 Blood Pressure 1: 134/74 Code: 8480-6 BMI: 21.3 Code: 37782-3 Heart Rate 1: 74 bpm Height: 5' SpO2: 96% Waist Measure (cm): 71 cm Weight: 109 lbs 12/14/2017 Blood Pressure 1: 150/78 Code: 8480-6 BMI: 21.5 Code: 70302-8 Heart Rate 1: 77 bpm Height: 5' SpO2: 98% Temperature: 36.7 (C) / 98.1 (F) Weight: 110 lbs 12/07/2017 Blood Pressure 1: 134/70 Code: 8480-6 Heart Rate 1: 76 bpm Height: SpO2: 98% Temperature: 36.8 (C) / 98.2 (F) Weight: 11/14/2017 Blood Pressure 1: 152/84 Code: 8480-6 BMI: 21.9 Code: 68103-7 Heart Rate 1: 95 bpm Height: 5' SpO2: 93% Weight: 112 lbs 03/27/2017 Blood Pressure 1: 122/70 Code: 8480-6 BMI: 21.3 Code: 72528-9 Heart Rate 1: 75 bpm Height: 5' Weight: 109 lbs 01/23/2017 BMI: 21.5 Code: 86789-1 Height: 5' Weight: 110 lbs 01/19/2017 Blood Pressure 1: 112/60 Code: 8480-6 BMI: 21.5 Code: 97281-9 Heart Rate 1: 54 bpm Height: 5' SpO2: 97% Weight: 110 lbs 11/29/2016 Blood Pressure 1: 126/68 Code: 8480-6 Height: 5' Weight: 11/23/2016 Blood Pressure 1: 130/72 Code: 8480-6 BMI: 21.9 Code: 57778-8 Heart Rate 1: 48 bpm Height: 5' SpO2: 97% Temperature: 36.7 (C) / 98.0 (F) Weight: 112 lbs 11/21/2016 Blood Pressure 1: 134/76 Code: 8480-6 BMI: 21.9 Code: 01091-8 Heart Rate 1: 41 bpm Height: 5' SpO2: 94% Temperature: 36.9 (C) / 98.4 (F) Weight: 112 lbs 11/08/2016 Blood Pressure 1: 126/74 Code: 8480-6 Heart Rate 1: 82 bpm Height: 5' SpO2: 94% Weight: 11/02/2016 Blood Pressure 1: 112/66 Code: 8480-6 Heart Rate 1: 72 bpm Height: 5' SpO2: 95% Weight: 10/27/2016 Blood Pressure 1: 130/64 Code: 8480-6 BMI: 21.7 Code: 26315-7 Heart Rate 1: 81 bpm Height: 5' SpO2: 96% Weight: 111 lbs 08/31/2016 Blood Pressure 1: 132/72 Code: 8480-6 BMI: 22.5 Code: 46996-9 Heart Rate 1: 66 bpm Height: 5' Weight: 115 lbs 07/27/2016 Blood Pressure 1: 166/74 Code: 8480-6 BMI: 23.2 Code: 76966-1 Heart Rate 1: 48 bpm Height: 5' SpO2: 90% Temperature: 36.8 (C) / 98.2 (F) Weight: 119 lbs 06/23/2016 Blood Pressure 1: 128/70 Code: 8480-6 BMI: 22.3 Code: 38487-6 Heart Rate 1: 75 bpm Height: 5' SpO2: 97% Weight: 114 lbs 06/09/2016 BMI: 22.7 Code: 33870-8 Heart Rate 1: 73 bpm Height: 5' SpO2: 97% Weight: 116 lbs 05/25/2016 Blood Pressure 1: 138/62 Code: 8480-6 BMI: 22.8 Code: 84897-8 Heart Rate 1: 76 bpm Height: 5' Weight: 117 lbs 05/17/2016 Blood Pressure 1: 116/70 Code: 8480-6 BMI: 22.8 Code: 04468-7 Heart Rate 1: 74 bpm Height: 5' SpO2: 94% Weight: 117 lbs 03/24/2016 Blood Pressure 1: 154/78 Code: 8480-6 BMI: 22.5 Code: 38655-5 Heart Rate 1: 78 bpm Height: 5' SpO2: 97% Weight: 115 lbs 02/02/2016 Blood Pressure 1: 132/70 Code: 8480-6 BMI: 22.3 Code: 47968-7 Heart Rate 1: 74 bpm Height: 5' SpO2: 94% Weight: 114 lbs 2016 Blood Pressure 1: 120/62 Code: 8480-6 BMI: 22.0 Code: 07007-5 Heart Rate 1: 68 bpm Height: 5' Weight: 112 lbs 8 oz 12/21/2015 Blood Pressure 1: 122/82 Code: 8480-6 BMI: 21.9 Code: 78051-1 Heart Rate 1: 83 bpm Height: 5' SpO2: 93% Temperature: 37.1 (C) / 98.7 (F) Weight: 112 lbs 11/03/2015 Blood Pressure 1: 122/72 Code: 8480-6 BMI: 22.4 Code: 43882-4 Heart Rate 1: 62 bpm Height: 5' Weight: 114 lbs 8 oz 10/19/2015 Blood Pressure 1: 138/62 Code: 8480-6 BMI: 21.1 Code: 60419-4 Heart Rate 1: 79 bpm Height: 5' Weight: 108 lbs 10/13/2015 Blood Pressure 1: 120/62 Code: 8480-6 BMI: 21.0 Code: 90421-6 Heart Rate 1: 76 bpm Height: 5' SpO2: 98% Weight: 108 lbs 09/29/2015 Blood Pressure 1: 130/70 Code: 8480-6 BMI: 20.2 Code: 57200-5 Heart Rate 1: 72 bpm Height: 5' Weight: 104 lbs 09/15/2015 Blood Pressure 1: 128/78 Code: 8480-6 BMI: 19.9 Code: 66434-0 Heart Rate 1: 72 bpm Height: 5' Weight: 102 lbs 8 oz 09/01/2015 Blood Pressure 1: 128/68 Code: 8480-6 BMI: 19.8 Code: 75858-6 Height: 5' Weight: 102 lbs 05/26/2015 Blood Pressure 1: 140/68 Code: 8480-6 BMI: 19.0 Code: 75750-3 Heart Rate 1: 70 bpm Height: 5' Weight: 98 lbs 05/21/2015 Blood Pressure 1: 140/78 Code: 8480-6 BMI: 19.2 Code: 60578-5 Heart Rate 1: 85 bpm Height: 5' SpO2: 95% Weight: 99 lbs 05/07/2015 Blood Pressure 1: 140/82 Code: 8480-6 BMI: 19.0 Code: 32740-5 Heart Rate 1: 76 bpm Height: 5' Weight: 98 lbs 03/23/2015 Blood Pressure 1: 142/60 Code: 8480-6 BMI: 18.6 Code: 34055-2 Heart Rate 1: 52 bpm Height: 5' Weight: 96 lbs 03/09/2015 Blood Pressure 1: 138/74 Code: 8480-6 BMI: 18.8 Code: 24725-8 Heart Rate 1: 60 bpm Height: 5' Weight: 97 lbs 10/30/2014 Blood Pressure 1: 112/82 Code: 8480-6 BMI: 19.0 Code: 01797-6 Heart Rate 1: 64 bpm Height: 5' Weight: 98 lbs 07/11/2014 Blood Pressure 1: 146/70 Code: 8480-6 BMI: 18.8 Code: 01919-3 Heart Rate 1: 68 bpm Height: 5' Weight: 97 lbs 05/20/2014 Blood Pressure 1: 142/76 Code: 8480-6 BMI: 18.6 Code: 94955-8 Heart Rate 1: 78 bpm Height: 5' Weight: 96 lbs 04/29/2014 Blood Pressure 1: 138/62 Code: 8480-6 BMI: 18.3 Code: 87878-1 Heart Rate 1: 80 bpm Height: 5' Weight: 94 lbs 8 oz 03/20/2014 Blood Pressure 1: 142/68 Code: 8480-6 BMI: 18.6 Code: 05525-4 Heart Rate 1: 96 bpm Height: 5' Weight: 96 lbs 03/05/2014 Blood Pressure 1: 122/72 Code: 8480-6 BMI: 18.8 Code: 91691-0 Heart Rate 1: 82 bpm Height: 5' SpO2: 97% Weight: 97 lbs 01/29/2014 Blood Pressure 1: 124/78 Code: 8480-6 BMI: 18.8 Code: 23345-0 Heart Rate 1: 60 bpm Height: 5' Weight: 97 lbs 01/14/2014 Blood Pressure 1: 120/58 Code: 8480-6 BMI: 19.2 Code: 82199-7 Heart Rate 1: 56 bpm Height: 5' Temperature: 36.9 (C) / 98.4 (F) Weight: 99 lbs 12/25/2013 Blood Pressure 1: 118/78 Code: 8480-6 BMI: 19.2 Code: 13053-2 Heart Rate 1: 68 bpm Height: 5' Weight: 99 lbs 11/27/2013 Blood Pressure 1: 102/68 Code: 8480-6 BMI: 19.4 Code: 23744-6 Heart Rate 1: 56 bpm Height: 5' Weight: 100 lbs 09/12/2013 Blood Pressure 1: 142/62 Code: 8480-6 BMI: 19.7 Code: 27679-4 Heart Rate 1: 72 bpm Height: 5'1" Weight: 104 lbs 08/15/2013 Blood Pressure 1: 152/92 Code: 8480-6 Heart Rate 1: 96 bpm Weight: 102 lbs 08/01/2013 Blood Pressure 1: 122/68 Code: 8480-6 BMI: 19.1 Code: 28787-0 Heart Rate 1: 68 bpm Height: 5'1" Weight: 101 lbs 07/01/2013 Blood Pressure 1: 130/72 Code: 8480-6 BMI: 19.5 Code: 24380-0 Heart Rate 1: 80 bpm Height: 5'1" Temperature: 36.1 (C) / 97.0 (F) Weight: 103 lbs 05/29/2013 Blood Pressure 1: 126/72 Code: 8480-6 BMI: 19.3 Code: 58097-7 Heart Rate 1: 80 bpm Height: 5'1" Weight: 102 lbs 05/15/2013 Blood Pressure 1: 156/74 Code: 8480-6 BMI: 19.3 Code: 55366-0 Heart Rate 1: 88 bpm Height: 5'1" Weight: 102 lbs 04/23/2013 Blood Pressure 1: 140/82 Code: 8480-6 BMI: 19.3 Code: 35648-5 Heart Rate 1: 72 bpm Height: 5'1" Weight: 102 lbs 03/21/2013 Blood Pressure 1: 142/74 Code: 8480-6 Heart Rate 1: 92 bpm Weight: 103 lbs 01/16/2013 Blood Pressure 1: 120/56 Code: 8480-6 BMI: 20.0 Code: 73234-1 Heart Rate 1: 72 bpm Height: 5'1" Weight: 106 lbs 12/19/2012 Blood Pressure 1: 118/66 Code: 8480-6 Heart Rate 1: 84 bpm Weight: 12/10/2012 Blood Pressure 1: 132/62 Code: 8480-6 Heart Rate 1: 64 bpm Weight: 103 lbs 10/30/2012 Blood Pressure 1: 122/66 Code: 8480-6 BMI: 19.9 Code: 30273-2 Heart Rate 1: 61 bpm Height: 5'1" [...] 1: 118/72 Code: 8480-6 BMI: 21.0 Code: 58377-2 Heart Rate 1: 66 bpm Height: 5'1" Respiratory Rate: 16 bpm Weight: 111 lbs 2012 Blood Pressure 1: 122/62 Code: 8480-6 Heart Rate 1: 68 bpm Weight: 110 lbs 12/01/2011 Blood Pressure 1: 150/60 Code: 8480-6 BMI: 20.8 Code: 72115-4 Heart Rate 1: 60 bpm Height: 5'1" Respiratory Rate: 16 bpm Weight: 110 lbs 11/23/2011 Blood Pressure 1: 170/68 Code: 8480-6 BMI: 21.1 Code: 89740-1 Heart Rate 1: 64 bpm Height: 5'1" Temperature: 36.3 (C) / 97.3 (F) Weight: 111 lbs 8 oz 10/17/2011 Blood Pressure 1: 148/62 Code: 8480-6 Heart Rate 1: 74 bpm 10/03/2011 Blood Pressure 1: 102/48 Code: 8480-6 BMI: 21.4 Code: 60692-7 Heart Rate 1: 76 bpm Height: 5'1" Respiratory Rate: 16 bpm Weight: 113 lbs 08/08/2011 Blood Pressure 1: 128/60 Code: 8480-6 Heart Rate 1: 80 bpm Respiratory Rate: 16 bpm Weight: 113 lbs 05/09/2011 Blood Pressure 1: 130/62 Code: 8480-6 BMI: 20.7 Code: 14611-1 Heart Rate 1: 64 bpm Height: 5'1" Respiratory Rate: 16 bpm Weight: 109 lbs 8 oz 03/29/2011 Blood Pressure 1: 120/62 Code: 8480-6 BMI: 20.2 Code: 74092-5 Heart Rate 1: 66 bpm Height: 5'1" Respiratory Rate: 12 bpm Weight: 107 lbs 03/15/2011 Blood Pressure 1: 120/64 Code: 8480-6 BMI: 19.8 Code: 53014-0 Heart Rate 1: 76 bpm Height: 5'1" [...] data Encounters Encounter Performer Location Codes Date ([id number]) Miscellaneous no charge Diagnosis: Hypo-osmolality and hyponatremia[ICD10: E87.1] Diagnosis: Paroxysmal atrial fibrillation[ICD10: I48.0] Diagnosis: Muscle weakness (generalized)[ICD10: M62.81] Diagnosis: Major depressive disorder, recurrent, mild[ICD10: F33.0] Laura Bahena MD, [facility] CPT-4: 91193 12/10/2018 ([id number]) 74304 EST. PATIENT, LEVEL III Diagnosis: Chronic atrial fibrillation[ICD10: I48.2] Diagnosis: Cough[ICD10: R05] Laura Bahena MD, [facility] CPT-4: 38781 12/06/2018 ([id number]) 22891 EST. PATIENT, LEVEL III Diagnosis: Acute laryngopharyngitis[ICD10: J06.0] Laura Bahena MD, [facility] CPT-4: 02628 11/30/2018 ([id number]) 06742 EST. 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 PATIENT, LEVEL III Diagnosis: Raynaud's syndrome without gangrene[ICD10: I73.00] Diagnosis: Pain in left hand[ICD10: M79.642] Diagnosis: Pain in right hand[ICD10: M79.641] Karma Bahena MD, [facility] CPT- 4: 81918 10/09/2018 02481 EST. PATIENT, LEVEL III Diagnosis: Cough[ICD10: R05] Diagnosis: Acute laryngopharyngitis[ICD10: J06.0] Diagnosis: Other allergic rhinitis[ICD10: J30.89] Diagnosis: Raynaud's syndrome without gangrene[ICD10: I73.00] Katharine Bahena MD, [facility] CPT-4: 50008 09/12/2018 ([id number]) 33536 EST. PATIENT, LEVEL IV Diagnosis: Raynaud's syndrome without gangrene[ICD10: I73.00] Diagnosis: Pain in right toe(s)[ICD10: M79.674] Diagnosis: Chronic atrial fibrillation[ICD10: I48.2] Karma Bahena MD, [facility] CPT-4: 91893 08/14/2018 ([id number]) 34273 EST. PATIENT, LEVEL IV Diagnosis: Chronic atrial fibrillation[ICD10: I48.2] Diagnosis: Sebaceous cyst[ICD10: L72.3] Diagnosis: Raynaud's syndrome without gangrene[ICD10: I73.00] Karma Bahena MD [facility] CPT-4: 35168 07/26/2018 ([id number]) 80145 EST. PATIENT, LEVEL IV Diagnosis: Essential (primary) hypertension[ICD10: I10] Diagnosis: Atrophy of thyroid (acquired)[ICD10: E03.4] Diagnosis: Gastro-esophageal reflux disease without esophagitis[ICD10: K21.9] Karma Bahena MD [facility] CPT-4: 96102 06/04/2018 ([id number]) 23478 EST. PATIENT, LEVEL IV Diagnosis: Essential (primary) hypertension[ICD10: I10] Diagnosis: Atrophy of thyroid (acquired)[ICD10: E03.4] Diagnosis: Other correction (current) drug therapy[ICD10: Z79.899] Karma Bahena MD, [facility] CPT-4: 64690 01/31/2018 ([id number]) 82043 EST. PATIENT, LEVEL IV Diagnosis: Essential (primary) hypertension[ICD10: I10] Diagnosis: Chronic atrial fibrillation[ICD10: I48.2] Diagnosis: Allergic rhinitis due to pollen[ICD10: J30.1] Diagnosis: Cough[ICD10: R05] Karma Bahena MD [facility] CPT-4: 47052 12/14/2017 01142 EST. PATIENT, LEVEL IV Diagnosis: Other allergic rhinitis[ICD10: J30.89] Katharine Bahena MD, [facility] CPT- 4: 08659 12/07/2017 ([id number]) 06692 EST. PATIENT, LEVEL IV Diagnosis: Essential (primary) hypertension[ICD10: I10] Diagnosis: Chronic atrial fibrillation[ICD10: I48.2] Diagnosis: Atrophy of thyroid (acquired)[ICD10: E03.4] Karma Bahena MD, [facility] CPT-4: 91775 11/14/2017 ([id number]) 43000 EST. PATIENT, LEVEL IV Diagnosis: Essential (primary) hypertension[ICD10: I10] Diagnosis: Localized edema[ICD10: R60.0] Diagnosis: Encounter for immunization[ICD10: Z23] Diagnosis: Age-related osteoporosis without current pathological fracture[ICD10: M81.0] Karma Bahena MD, [facility] CPT-4: 92641 03/27/2017 ([id number]) 61371 EST. PATIENT, LEVEL IV Diagnosis: Essential (primary) hypertension[ICD10: I10] Diagnosis: Chronic atrial fibrillation[ICD10: I48.2] Diagnosis: Dysphonia[ICD10: R49.0] Karma Bahena MD, [facility] CPT-4: 48311 01/19/2017 ([id number]) Miscellaneous no charge Diagnosis: Cough[ICD10: R05] Diagnosis: Acute upper respiratory infection, unspecified[ICD10: J06.9] Laura Bahena MD, [facility] CPT-4: 64495 11/29/2016 03728 EST. PATIENT, LEVEL III Diagnosis: Cough[ICD10: R05] Diagnosis: Acute laryngopharyngitis[ICD10: J06.0] Katharine Bahena MD, [facility] CPT- 4: 92741 11/23/2016 ([id number]) 77411 EST. PATIENT, LEVEL III Diagnosis: Acute laryngopharyngitis[ICD10: J06.0] Laura Bahena MD, [facility] CPT-4: 68235 11/21/2016 ([id number]) Miscellaneous no charge Diagnosis: Laceration without foreign body of right forearm, subsequent encounter[ICD10: S51.811D] Karma Bahena MD, [facility] CPT-4: 49390 11/17/2016 ([id number]) Miscellaneous no charge Diagnosis: Laceration without foreign body of right forearm, subsequent encounter[ICD10: S51.811D] Karma Bahena MD [facility] CPT-4: 81223 11/14/2016 ([id number]) Miscellaneous no charge Diagnosis: Laceration without foreign body of right forearm, subsequent encounter[ICD10: S51.811D] Karma Bahena MD [facility] CPT-4: 54526 11/11/2016 ([id number]) Miscellaneous no charge Diagnosis: Laceration without foreign body of right forearm, subsequent encounter[ICD10: S51.811D] Karma Bahena MD [facility] CPT-4: 73494 11/10/2016 ([id number]) 22211 EST. PATIENT, LEVEL II Diagnosis: Laceration without foreign body of right forearm, subsequent encounter[ICD10: S51.811D] Karma Bahena MD [facility] CPT-4: 89455 11/08/2016 ([id number]) 88995 EST. PATIENT, LEVEL IV Diagnosis: Atrophy of thyroid (acquired)[ICD10: E03.4] Diagnosis: Chronic atrial fibrillation[ICD10: I48.2] Diagnosis: Laceration without foreign body of right forearm, subsequent encounter[ICD10: S51.811D] Karma Bahena MD [facility] CPT-4: 24603 11/02/2016 ([id number]) 50316 EST. PATIENT, LEVEL III Diagnosis: Laceration without foreign body of right forearm, initial encounter[ICD10: S51.811A] Laura Bahena MD [facility] CPT-4: 62492 10/27/2016 ([id number]) 60169 EST. PATIENT, LEVEL IV Diagnosis: Essential (primary) hypertension[ICD10: I10] Diagnosis: Chronic atrial fibrillation[ICD10: I48.2] Karma Bahena MD [facility] CPT-4: 01809 08/31/2016 ([id number]) 57861 EST. PATIENT, LEVEL IV Diagnosis: Localized edema[ICD10: R60.0] Diagnosis: Essential (primary) hypertension[ICD10: I10] Diagnosis: Abdominal distension (gaseous)[ICD10: R14.0] Karma Bahena MD, [facility] CPT-4: 88739 07/27/2016 ([id number]) 31219 EST. PATIENT, LEVEL IV Diagnosis: Essential (primary) hypertension[ICD10: I10] Diagnosis: Chronic atrial fibrillation[ICD10: I48.2] Diagnosis: Localized edema[ICD10: R60.0] Karma Bahena MD [facility] CPT-4: 45629 06/23/2016 ([id number]) 02673 EST. PATIENT, LEVEL III Diagnosis: Localized edema[ICD10: R60.0] Karma Bahena MD [facility] CPT-4: 06348 06/09/2016 ([id number]) 38111 EST. PATIENT, LEVEL III Diagnosis: Irritable bowel syndrome without diarrhea[ICD10: K58.9] Diagnosis: Pruritus ani[ICD10: L29.0] Karma Bahena MD [facility] CPT-4: 59618 05/25/2016 ([id number]) 02811 EST. PATIENT, LEVEL III Diagnosis: Abdominal distension (gaseous)[ICD10: R14.0] Diagnosis: Encounter for screening mammogram for malignant neoplasm of breast[ICD10: Z12.31] Karma Bahena MD [facility] CPT-4: 61805 05/17/2016 ([id number]) 91626 EST. PATIENT, LEVEL IV Diagnosis: Essential (primary) hypertension[ICD10: I10] Diagnosis: First degree hemorrhoids[ICD10: K64.0] Diagnosis: Encounter for immunization[ICD10: Z23] Karma Bahena MD [facility] CPT-4: 35263 03/24/2016 ([id number]) 87673 EST. PATIENT, LEVEL III Diagnosis: Epidermal cyst[ICD10: L72.0] Diagnosis: Essential (primary) hypertension[ICD10: I10] Diagnosis: Chronic atrial fibrillation[ICD10: I48.2] Diagnosis: Other correction (current) drug therapy[ICD10: Z79.899] Karma Bahena MD, [facility] CPT-4: 37814 02/02/2016 ([id number]) 55887 EST. PATIENT, LEVEL III Diagnosis: Acute anal fissure[ICD10: K60.0] Karma Bahena MD, [facility] CPT-4: 40222 2016 ([id number]) 09562 EST. PATIENT, LEVEL III Diagnosis: Allergic rhinitis due to pollen[ICD10: J30.1] Diagnosis: Acute upper respiratory infection, unspecified[ICD10: J06.9] Laura Bahena MD, [facility] CPT-4: 50796 12/21/2015 ([id number]) 10703 EST. PATIENT, LEVEL III Diagnosis: Essential (primary) hypertension[ICD10: I10] Diagnosis: Chronic atrial fibrillation[ICD10: I48.2] Karma Bahena MD, [facility] CPT-4: 71923 11/03/2015 ([id number]) Miscellaneous no charge Diagnosis: Impacted cerumen, right ear[ICD10: H61.21] Katharine Bahena MD, [facility] CPT-4: 46340 10/19/2015 95484 EST. PATIENT, LEVEL IV Diagnosis: Impacted cerumen, right ear[ICD10: H61.21] Diagnosis: Other allergic rhinitis[ICD10: J30.89] Katharine Bahena MD, [facility] CPT- 4: 99440 10/13/2015 ([id number]) 50519 EST. PATIENT, LEVEL IV Diagnosis: Essential (primary) hypertension[ICD10: I10] Diagnosis: Chronic atrial fibrillation[ICD10: I48.2] Diagnosis: Urge incontinence[ICD10: N39.41] Diagnosis: Age-related osteoporosis without current pathological fracture[ICD10: M81.0] Karma Bahena MD, [facility] CPT-4: 28256 09/29/2015 ([id number]) 99377 EST. PATIENT, LEVEL IV Diagnosis: Essential (primary) hypertension[ICD10: I10] Diagnosis: Chronic atrial fibrillation[ICD10: I48.2] Diagnosis: Irritable bowel syndrome without diarrhea[ICD10: K58.9] Diagnosis: Unspecified hemorrhoids[ICD10: K64.9] Karma Bahena MD, [facility] CPT-4: 95555 09/15/2015 ([id number]) 02251 EST. 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 PATIENT, LEVEL III Diagnosis: Hematuria, unspecified[ICD10: R31.9] Diagnosis: Other urethritis[ICD10: N34.2] Diagnosis: Other specified noninflammatory disorders of vagina[ICD10: N89.8] Karma Bahena MD, [facility] CPT-4: 94234 05/26/2015 53137 EST. PATIENT, LEVEL IV Diagnosis: Gout, unspecified[ICD10: M10.9] Karma Bahena MD, [facility] CPT-4: 55367 05/21/2015 ([id number]) 99098 EST. PATIENT, LEVEL IV Diagnosis: Chronic atrial fibrillation[ICD10: I48.2] Diagnosis: Irritable bowel syndrome without diarrhea[ICD10: K58.9] Diagnosis: Cystocele, unspecified[ICD10: N81.10] Diagnosis: Urge incontinence[ICD10: N39.41] Diagnosis: Fecal smearing[ICD10: R15.1] Diagnosis: Hypothyroidism, unspecified[ICD10: E03.9] Karma Bahena MD, [facility] CPT-4: 86878 05/07/2015 ([id number]) 03596 EST. PATIENT, LEVEL III Diagnosis: Atrial fibrillation[ICD9: 427.31] Diagnosis: Bloating[ICD9: 787.3] Karma Bahena MD, [facility] CPT-4: 72134 03/23/2015 ([id number]) 69206 EST. PATIENT, LEVEL IV Diagnosis: Abdominal pain[ICD9: 789.00] Diagnosis: Atrial fibrillation[ICD9: 427.31] Diagnosis: ENCNTR LONG-ANTICOAG USE[ICD9: V58.61] Karma Bahena MD, [facility] CPT-4: 61446 03/09/2015 ([id number]) 19312 EST. PATIENT, LEVEL IV Diagnosis: HEMATURIA NOS[ICD9: 599.70] Diagnosis: Atrial fibrillation[ICD9: 427.31] Diagnosis: HYPOTHYROIDISM[ICD9: 244.9] Karma Bahena MD, [facility] CPT-4: 44926 10/30/2014 ([id number]) 22446 EST. PATIENT, LEVEL IV Diagnosis: Atrial fibrillation[ICD9: 427.31] Diagnosis: ALLERGIC RHINITIS[ICD9: 477.9] Diagnosis: Need for pneumococcal vaccine[ICD9: V03.82] Diagnosis: Osteoarthritis[ICD9: 715.90] Diagnosis: Osteoporosis[ICD9: 733.00] Karma Bahena MD, [facility] CPT-4: 58086 07/11/2014 ([id number]) 69605 EST. PATIENT, LEVEL III Diagnosis: Urge incontinence[ICD9: 788.31] Diagnosis: Dysuria[ICD9: 788.1] Karma Bahena MD, [facility] CPT-4: 07584 05/20/2014 ([id number]) 57011 EST. PATIENT, LEVEL IV Diagnosis: Atrial fibrillation[ICD9: 427.31] Diagnosis: Hematuria[ICD9: 599.70] Diagnosis: Dysuria[ICD9: 788.1] Diagnosis: ESSENTIAL HYPERTENSION[ICD9: 401.9] Karma Bahena MD [facility] CPT- 4: 10429 04/29/2014 ([id number]) 77002 EST. PATIENT, LEVEL IV Diagnosis: ESSENTIAL HYPERTENSION[ICD9: 401.9] Diagnosis: ALLERGIC RHINITIS[ICD9: 477.9] Karma Bahena MD [facility] CPT-4: 23926 03/20/2014 ([id number]) 87293 EST. PATIENT, LEVEL IV Diagnosis: ESSENTIAL HYPERTENSION[ICD9: 401.9] Diagnosis: ATRIAL FIBRILLATION[ICD9: 427.31] Diagnosis: Irritable bowel[ICD9: 564.1] Karma Bahena MD, [facility] CPT-4: 16681 03/05/2014 ([id number]) 53316 EST. PATIENT, LEVEL IV Diagnosis: Esophageal reflux[ICD9: 530.81] Diagnosis: DIARRHEA[ICD9: 787.91] Diagnosis: ABDOM PAIN NOS SITE[ICD9: 789.00] Karma Bahena MD, [facility] CPT- 4: 62007 01/29/2014 ([id number]) 79284 EST. PATIENT, LEVEL III Diagnosis: Irritable bowel[ICD9: 564.1] Diagnosis: DIARRHEA[ICD9: 787.91] Laura Bahena MD [facility] CPT-4: 82610 01/14/2014 ([id number]) 33322 EST. PATIENT, LEVEL IV Diagnosis: ESSENTIAL HYPERTENSION[ICD9: 401.9] Diagnosis: ATRIAL FIBRILLATION[ICD9: 427.31] Diagnosis: URGE INCONTINENCE[ICD9: 788.31] Diagnosis: MALAISE AND FATIGUE[ICD9: 780.79] Diagnosis: Dyspnea[ICD9: 786.09] Karma Bahena MD [facility] CPT-4: 33778 12/25/2013 ([id number]) 64810 EST. PATIENT, LEVEL IV Diagnosis: ESSENTIAL HYPERTENSION[SNOMED: 67413099] Diagnosis: ATRIAL FIBRILLATION[ICD9: 427.31] Diagnosis: Abdominal pain[ICD9: 789.00] Diagnosis: ESOPHAGEAL REFLUX[ICD9: 530.81] Karma Bahena MD [facility] CPT-4: 13775 11/27/2013 ([id number]) 53055 EST. PATIENT, LEVEL IV Diagnosis: ESSENTIAL HYPERTENSION[SNOMED: 46128230] Diagnosis: ATRIAL FIBRILLATION[ICD9: 427.31] Diagnosis: Chronic osteoarthritis[ICD9: 715.90] Karma Bahena MD [facility] CPT- 4: 03625 09/12/2013 ([id number]) 31117 EST. PATIENT, LEVEL III Diagnosis: ESSENTIAL HYPERTENSION[SNOMED: 70936132] Diagnosis: Bruising[ICD9: 924.9] Diagnosis: ENCNTR LONG-RX USE NEC[ICD9: V58.69] Karma Bahena MD, [facility] CPT- 4: 13988 08/15/2013 ([id number]) 70308 EST. PATIENT, LEVEL IV Diagnosis: ESSENTIAL HYPERTENSION[SNOMED: 45138893] Diagnosis: Hematuria[ICD9: 599.70] Diagnosis: Dysuria[ICD9: 788.1] Karma Bahena MD, [facility] CPT-4: 35047 08/01/2013 ([id number]) 24764 EST. PATIENT, LEVEL III Diagnosis: UTI[ICD9: 599.0] Diagnosis: Hematuria[ICD9: 599.70] Laura Bahena MD [facility] CPT-4: 38226 07/01/2013 ([id number]) 45800 EST. PATIENT, LEVEL III Diagnosis: ATRIAL FIBRILLATION[ICD9: 427.31] Diagnosis: ESSENTIAL HYPERTENSION[SNOMED: 15040014] PARVEEN Freitas MD CPT-4: 86196 05/29/2013 ([id number]) 20214 EST. PATIENT, LEVEL IV Diagnosis: Atrial fibrillation[ICD9: 427.31] Diagnosis: Encounter for monitoring digoxin therapy[ICD9: V58.83] Diagnosis: ESSENTIAL HYPERTENSION[SNOMED: 12485915] Karma Bahena MD [facility] CPT-4: 50090 05/15/2013 ([id number]) 38085 EST. PATIENT, LEVEL IV Diagnosis: ESSENTIAL HYPERTENSION[SNOMED: 73387545] Diagnosis: ATRIAL FIBRILLATION[ICD9: 427.31] Diagnosis: PALPITATIONS[ICD9: 785.1] Diagnosis: Dizziness and giddiness[ICD9: 780.4] Karma Bahena MD [facility] CPT- 4: 31785 04/23/2013 ([id number]) 52213 EST. PATIENT, LEVEL III Diagnosis: OTHER CONSTIPATION[ICD9: 564.09] Diagnosis: ABDOM PAIN NOS SITE[ICD9: 789.00] Laura Bahena MD [facility] CPT- 4: 44406 03/21/2013 ([id number]) 48177 EST. PATIENT, LEVEL IV Diagnosis: ESSENTIAL HYPERTENSION[SNOMED: 93070331] Diagnosis: Atrial fibrillation[ICD9: 427.31] Karma Bahena MD [facility] CPT- 4: 53792 01/16/2013 ([id number]) Miscellaneous no charge Diagnosis: CELLULITIS OF HAND[ICD9: 682.4] [facility] CPT-4: 12457 12/19/2012 ([id number]) Miscellaneous no charge Diagnosis: ENCOUNTER FOR THERAPEUTIC DRUG MONITORING[ICD9: V58.83] Diagnosis: CELLULITIS OF HAND[ICD9: 682.4] Karma Bahena MD [facility] CPT-4: 57449 12/14/2012 Miscellaneous no charge Diagnosis: CELLULITIS OF HAND[ICD9: 682.4] Karma Bahena MD [facility] CPT-4: 05157 12/12/2012 72643 EST. PATIENT, LEVEL II Diagnosis: CELLULITIS OF HAND[ICD9: 682.4] Diagnosis: ENCNTR LONG-RX USE NEC[ICD9: V58.69] Diagnosis: LONG-TERM USE ANTICOAGUL[ICD9: V58.61] Karma Bahena MD [facility] CPT-4: 75529 12/11/2012 ([id number]) 30286 EST. PATIENT, LEVEL III Diagnosis: CELLULITIS OF HAND[ICD9: 682.4] Karma Bahena MD [facility] CPT-4: 57465 12/10/2012 ([id number]) 51430 EST. PATIENT, LEVEL IV Diagnosis: Elevated digoxin level[ICD9: 796.0] Diagnosis: ATRIAL FIBRILLATION[ICD9: 427.31] Diagnosis: Inflammatory arthritis[ICD9: 714.9] Karma Bahena MD, [facility] CPT- 4: 58231 10/30/2012 ([id number]) 64149 EST. PATIENT, LEVEL IV Diagnosis: Atrial fibrillation[ICD9: 427.31] Diagnosis: Anticoagulant long-term use[ICD9: V58.61] Diagnosis: ESSENTIAL HYPERTENSION[SNOMED: 26367615] [facility] CPT-4: 59186 08/08/2012 ([id number]) 13507 EST. PATIENT, LEVEL IV Diagnosis: ABDOM PAIN NOS SITE[ICD9: 789.00] Diagnosis: Constipation - functional[ICD9: 564.09] Diagnosis: EDEMA[ICD9: 782.3] Diagnosis: ATRIAL FIBRILLATION[ICD9: 427.31] [facility] CPT- 4: 81690 07/11/2012 ([id number]) 65534 EST. PATIENT, LEVEL III Diagnosis: Cystocele[ICD9: 618.01] Diagnosis: Rectocele[ICD9: 618.04] [facility] CPT-4: 38761 05/08/2012 ([id number]) 44537 EST. PATIENT, LEVEL IV Diagnosis: Atrial fibrillation[ICD9: 427.31] Diagnosis: ESSENTIAL HYPERTENSION[SNOMED: 59642543] Diagnosis: Status post small bowel resection[ICD9: V45.89] Diagnosis: ENCNTR LONG-ANTICOAG USE[ICD9: V58.61] Karma Bahena MD, [facility] CPT-4: 79066 04/18/2012 ([id number]) Patient admitted to the hospital from clinic (NO CHARGE) Diagnosis: Abdominal pain[ICD9: 789.00] Diagnosis: Nausea and vomiting[ICD9: 787.01] Diagnosis: ESSENTIAL HYPERTENSION[SNOMED: 90814949] Karma Bahena MD, [facility] CPT-4: 21470Z 03/13/2012 ([id number]) 55181 EST. PATIENT, LEVEL IV Diagnosis: ATRIAL FIBRILLATION[ICD9: 427.31] Diagnosis: URGE INCONTINENCE[ICD9: 788.31] Diagnosis: MALAISE AND FATIGUE[ICD9: 780.79] Diagnosis: Dyspnea[ICD9: 786.09] Karma Bahena MD [facility] CPT-4: 67766 02/20/2012 83812 EST. PATIENT, LEVEL IV Diagnosis: Hematuria[ICD9: 599.70] Diagnosis: Vaginal yeast infection[ICD9: 112.1] Diagnosis: ATRIAL FIBRILLATION[ICD9: 427.31] Laura Bahena MD, [facility] CPT- 4: 88188 02/13/2012 ([id number]) 31105 EST. PATIENT, LEVEL IV Diagnosis: Atrial fibrillation[ICD9: 427.31] Diagnosis: Anticoagulation goal of INR 2 to 3[ICD9: V58.83] Diagnosis: Urinary incontinence, urge[ICD9: 788.31] Diagnosis: ESSENTIAL HYPERTENSION[SNOMED: 76081267] Karma Bahena MD, [facility] CPT-4: 60698 02/01/2012 ([id number]) 52672 EST. PATIENT, LEVEL IV Diagnosis: Atrial fibrillation[ICD9: 427.31] Diagnosis: Anticoagulant long-term use[ICD9: V58.61] Diagnosis: ESSENTIAL HYPERTENSION[SNOMED: 13156173] Karma Bahena MD, [facility] CPT-4: 67209 2012 24949 EST. PATIENT, LEVEL IV Diagnosis: UTI[ICD9: 599.0] Diagnosis: ESSENTIAL HYPERTENSION[SNOMED: 56984370] Diagnosis: MALAISE AND FATIGUE[ICD9: 780.79] Diagnosis: Esophageal reflux[ICD9: 530.81] Krama Bahena MD, [facility] CPT-4: 61840 12/01/2011 ([id number]) 05915 EST. PATIENT, LEVEL IV Diagnosis: UTI (urinary tract infection)[ICD9: 599.0] Diagnosis: ESSENTIAL HYPERTENSION[SNOMED: 08429383] Diagnosis: URGE INCONTINENCE[ICD9: 788.31] Karma Bahena MD, [facility] CPT-4: 53908 11/23/2011 ([id number]) 01615 EST. PATIENT, LEVEL IV Diagnosis: ESSENTIAL HYPERTENSION[SNOMED: 14579064] Diagnosis: IMPACTED CERUMEN[ICD9: 380.4] Diagnosis: MALAISE AND FATIGUE[ICD9: 780.79] Diagnosis: EDEMA[ICD9: 782.3] Karma Bahena MD, [facility] CPT-4: 71536 10/03/2011 42905 EST. PATIENT, LEVEL IV Diagnosis: ESSENTIAL HYPERTENSION[SNOMED: 73771033] Diagnosis: Generalized osteoarthritis[ICD9: 715.09] Diagnosis: OSTEOPOROSIS[ICD9: 733.00] Karma Bahena MD, [facility] CPT-4: 87654 08/08/2011 58081 EST. PATIENT, LEVEL IV Diagnosis: Muscle cramp[ICD9: 729.82] Diagnosis: Torticollis[ICD9: 723.5] Diagnosis: Rash[ICD9: 782.1] Karma Bahena MD, [facility] CPT-4: 65744 05/09/2011 65095 EST. PATIENT, LEVEL IV Diagnosis: Leg cramps, sleep related[ICD9: 327.52] Diagnosis: Underweight[ICD9: 783.22] Karma Bahena MD, [facility] CPT-4: 90474 03/29/2011 47910 EST. PATIENT, LEVEL IV Diagnosis: UTI[ICD9: 599.0] Diagnosis: Urge incontinence[ICD9: 788.31] Diagnosis: Loss of weight[ICD9: 783.21] Diagnosis: Palpitations[ICD9: 785.1] Diagnosis: Peripheral neuropathy, idiopathic[ICD9: 356.9] [facility] CPT-4: 34315 03/15/2011 Plan of Care Planned Activity Notes [...] to monitor 12/06/2018 Appointment: Laura Colin WPtel: [address] [place], [place] [phone] [place] [address] (15 min) Moderate 12/06/2018 Patient Education: Patient Medication Summary Completed 12/06/2018 Visit Plan: Pharyngitis-Discussed natural and expected course of this diagnosis and need to alert me if symptoms do not follow expected course, or if any worse. Recommended salt water gargles as needed for pain. Ty lenol/motrin as needed for fever/discomfort. 11/30/2018 Appointment: Laura Colin WPtel: [address] [place], [place] [phone] (30 min) Complex 11/30/2018 Patient Education: Patient Medication Summary Completed 11/30/2018 Appointment: Karma Bahena WPtel: [address] [place], [place] [phone] (15 min) Moderate 11/14/2018 Visit Plan: Hypothyroidism [...] imvexxy 10/31/2018 Appointment: Karma Bahena WPtel: [phone] (15 min) Moderate 10/31/2018 Patient Education: Patient Medication Summary Completed 10/31/2018 Visit Plan: Hand pain with arthritis - Raynaud syndrome - discussed with pt - RX for Voltaren gel sent to the pharmacy. continue with amlodipine. 10/09/2018 Appointment: Karma Bahena WPtel: [facility] (15 min) Moderate 10/09/2018 Patient Education: Patient Medication Summary Completed 10/09/2018 Appointment: Karma Bahena WPtel: [phone] (15 min) Moderate 10/01/2018 Visit Plan: [...] concerns. 09/12/2018 Appointment: Katharine Dai WPtel: [phone] [place] [phone] [place] (15 min) Moderate 09/12/2018 Patient Education: Patient Medication Summary Completed 09/12/2018 Appointment: [facility]Ptel: [phone] [facility] (15 min) Moderate 08/16/2018 Visit [...] surgically removed. 08/14/2018 Appointment: Karma Bahena WPtel: [facility]5 [facility] [place] (15 min) Moderate 08/14/2018 [...] surgically removed. 07/26/2018 Appointment: Karma Bahena WPtel: [facility]5 [facility] [place] (15 min) Moderate 07/26/2018 [...] not improving. 06/04/2018 Appointment: Karma Bahena WPtel: [facility]5 [facility] (15 min) Moderate 06/04/2018 Patient Education: Patient Medication Summary Completed 06/04/2018 Appointment: Karma Bahena WPtel: [phone] [facility]6676[facility] (15 min) Moderate 03/14/2018 Visit Plan: [...] q 3 months or q 6 m [facility] based on previous levels of control. 01/31/2018 Appointment: Katharine Dai WPtel: [phone] [facility] [place] [address] - Annual Wellness Visit 01/31/2018 Patient Education: [...] allergy spray. 12/14/2017 Appointment: Karma Bahena WPtel: [address] [place], [place] [address] (15 min) Moderate 12/14/2017 Patient Education: Patient [...] allergy spray. 12/07/2017 Appointment: Katharine Dai WPtel: [address] [place], [place] [phone] (15 min) Moderate 12/07/2017 [...] q 3 months or q 6 m [facility] based on previous levels of control. 11/14/2017 Appointment: Karma Bahena WPtel: [address] [place], [place] [phone] (15 min) Moderate 11/14/2017 Patient Education: [...] shot today. 03/27/2017 Appointment: Kar[facility] Bahena WPtel: [phone] [facility] (15 min) Moderate 03/27/2017 Patient [...] care surrogate. 01/23/2017 Appointment: Kath[facility]Ptel[phone] [facility] - Annual Wellness Visit 01/23/2017 [...] becoming uncontrolled. 01/19/2017 Appointment: Karma Bahena WPtel: [phone] [facility] (15 min) Moderate 01/19/2017 Patient Education: Patient Medication Summary Completed 01/19/2017 Care Plan: Referral Order SNOMED-CT : [id number] Pending 01/19/2017 Appointment: Karma Bahena WPtel: [phone] [facility] (15 min) Moderate 01/04/2017 Appointment: Karma Bahena WPtel: [phone] [facility]6[address] (15 min) Moderate 12/28/2016 Visit Plan: QFY-eaeoz-lzh zpack-call if symptoms do not resolve or if any worse. Patient verbalized understanding of plan. 11/29/2016 Appointment: Laura Colin WPtel: [phone] [phone] [place] (15 min) Moderate 11/29/2016 Patient [...] patient's pharmacy. 11/23/2016 Appointment: Katharine Dai WPtel: [facility]6 [facility] [place] (15 min) Moderate 11/23/2016 Patient Education: Patient Medication Summary Completed 11/23/2016 Visit Plan: Pharyngitis-Discussed natural and expected course of this diagnosis and need to alert me if symptoms do not follow expected course, or if any worse. Recommended salt water gargles as needed for pain. Ty lenol/motrin as needed for fever/discomfort. 11/21/2016 Appointment: Laura Colin WPtel: [phone] [phone] [place] (15 min) Moderate 11/21/2016 Patient [...] symptoms. 11/08/2016 Appointment: Karma Bahena WPtel: [phone] [facility] (10 min) Simple 11/08/2016 Patient [...] bactroban, etc. 11/02/2016 Appointment: Karma Bahena WPtel: [facility]5 [facility] (15 min) Moderate 11/02/2016 Appointment: Nurse Visit 11/02/2016 Patient Education: Patient Medication Summary Completed 11/02/2016 Appointment: Nurse Visit 10/31/2016 Visit Plan: Laceration-right forearm- Pt was instructed to keep the wound clean, cleanse with sterile saline, use bactroban ointment, call if redness, pustular drainage, or any other acute concerns. Follow up Monday for dressing changes. 10/27/2016 Appointment: Laura Colin WPtel: [phone] [phone] [place] (30 min) Complex 10/27/2016 Patient [...] symptoms. 08/31/2016 Appointment: Karma Bahena WPtel: [phone] [facility] (15 min) Moderate 08/31/2016 Patient [...] swelling. 07/27/2016 Appointment: Karma Bahena WPtel: [phone] [facility] (15 min) Moderate 07/27/2016 Patient [...] of lasix 06/23/2016 Appointment: Karma Bahena WPtel: [phone] [facility] (15 min) Moderate 06/23/2016 Patient Education: Patient Medication Summary Completed 06/23/2016 Patient Education: Hypertension Completed 06/23/2016 Visit Plan: Edema - with Dyspnea - RX for laxis and compression socks - pt to call if not improving. 06/09/2016 Appointment: Karma Bahena WPtel: [facility]4 [facility] (15 min) Moderate 06/09/2016 Patient Education: Patient Medication Summary Completed 06/09/2016 Visit Plan: Abdominal pain and rectal itching - recommended pt to use betamethasone on vaginal/rectal region, monitor symptoms call if not improving. 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 12/21/2015 Appointment: Laura Colin WPtel: [phone] [phone] (30 min) Complex 12/21/2015 Patient Education: [...] uncontrolled. 11/03/2015 Appointment: Karma Bahena WPtel: [phone] [facility] (15 min) Moderate 11/03/2015 Patient [...] had left kidney and ureter removed in [place]-doing well 09/01/2015 Appointment: (30 min) Complex 09/01/2015 Patient Education: Patient Medication Summary Completed 09/01/2015 Patient Education: Hypertension Completed 09/01/2015 Appointment: Karma Bahena WPtel: [address] [place] [address] (15 min) Moderate 07/13/2015 Visit Plan: Hematuria/Urethritis [...] 05/13/2015 Care Plan: Referral Order SNOMED-CT : [id number] Ordered 05/08/2015 Visit Plan: Atrial Fibrillation - [...] - referral to Dr. Collins. 05/07/2015 Appointment: aKrma Bahena WPtel: [facility]5 [facility] (15 min) Moderate 05/07/2015 Patient [...] becoming uncontrolled. 10/30/2014 Appointment: Karma Bahena WPtel: [address] [place], [place] [phone] Follow up 10/30/2014 Patient Education: Patient Medication Summary Completed 10/30/2014 Appointment: Karma Bahena WPtel: [address] [place], [place] [address] Follow up 07/22/2014 Visit Plan: Atrial Fibrillation [...] hospital. 07/11/2014 Appointment: Karma Bahena WPtel: [address] [place], [place] [phone] Sick 07/11/2014 Patient Education: Patient Medication Summary Completed 07/11/2014 Appointment: Karma Bahena WPtel: [address] [place], [place] [phone] Follow up 07/07/2014 Visit Plan: Urinary incontinence and recurrent UTI's - doctor will refer to Dr. Joel Collins - for nonsurgical intervention for potential electrical stimulation/training of pelvic floor muscles - for strengthening - can start on the treatment when you get back from [place] - will also ask him about doing a cystoscopy to look into bladder to see if there is any bladder irritation. keep using the Premarin - use about 25Cent size of cream onto finger to apply to urethra and do this three times weekly. 05/20/2014 Appointment: Karma Bahena WPtel: [phone] [facility] Follow up 05/20/2014 Patient Education: Patient Medication Summary Completed 05/20/2014 Appointment: Karma Bahena WPtel: [phone] [facility] [place] Lab Draw 05/14/2014 Patient [...] recommended vesicare. 04/29/2014 Appointment: Karma Bahena WPtel: [facility]5 [facility] Follow up 04/29/2014 Patient Education: [...] spray. 03/20/2014 Appointment: Karma Bahena WPtel: [phone] [facility] [facility] 03/20/2014 Patient Education: Patient Medication Summary [...] becoming uncontrolled. 03/05/2014 Appointment: Karma Bahena WPtel: [address] [place], [place] [phone] Follow up 03/05/2014 Patient Education: Patient Medication [...] report. 01/29/2014 Appointment: Karma Bahena WPtel: [phone] [facility] Follow up 01/29/2014 Patient Education: [...] Patient do an overnight oxygen study on L[place] as she has cardiac history, weight loss, and nocturnal hypoxemia may be a part of her weight loss and fatigue. 12/25/2013 Appointment: Karma Bahena WPtel: [phone] [facility] Follow up 12/25/2013 Patient Education: [...] daily. 11/27/2013 Appointment: Karma Bahena WPtel: [phone] [facility] Follow up 11/27/2013 Patient Education: Patient [...] heart rate. Osteoarthritis - send pt to [facility] physical therapy for gereral osteoarhtritis program for strengthening and pain reduction. Hypertension - well controlled - continue with current medications, continue with no added salt diet. Pt has been encouraged to exercise daily. The pt has been advised to call the office if there are any acute concerns about change in blood pressure readings at home. 09/12/2013 Appointment: Karma Bahena WPtel: [facility]5 [facility] Follow up 09/12/2013 Patient Education: Patient Medication Summary Completed 09/12/2013 Patient Education: Hypertension Completed 09/12/2013 Appointment: Karma Bahena WPtel: [facility]5 [facility] Follow up 08/21/2013 Visit Plan: [...] coumadin-check PT/INR 08/15/2013 Appointment: Karma Bahena WPtel: [facility]3 [facility] Follow up 08/15/2013 Patient Education: [...] of urethra. 08/01/2013 Appointment: Karma Bahena WPtel: [facility]5 [facility] [place] Follow up 08/01/2013 Patient Education: Patient Medication Summary Completed 08/01/2013 Patient Education: Hypertension Completed 08/01/2013 Appointment: Laura Colin WPtel: [phone] [place] Lab Draw 07/29/2013 Patient Education: Patient Medication Summary Completed 07/29/2013 Visit Plan: Osteoporosis-prolia on june 25-patient to let Dr Hansen know 07/01/2013 Appointment: Laura Colin WPtel: [facility]5 [phone] [place] Follow up 07/01/2013 Appointment: Karma Bahena WPtel: [facility]5 [facility] [place] Follow up 07/01/2013 Patient Education: Patient Medication Summary Completed 07/01/2013 Appointment: Karma Bahena WPtel: [phone] [facility] [place] Follow up 06/25/2013 Appointment: Karma Bahena WPtel: [facility]5 [facility] [place] Lab Draw 06/20/2013 Patient Education: Patient Medication Summary Completed 06/20/2013 Appointment: Karma Bahena WPtel: [phone] [facility] Lab Draw 06/19/2013 Visit Plan: [...] at home. 05/29/2013 Appointment: Karma Bahena WPtel: [facility]5 [facility] Follow up 05/29/2013 Patient Education: [...] at home. 05/15/2013 Appointment: Karma Bahena WPtel: [facility]5 [facility] Other 05/15/2013 Patient Education: Patient [...] shot today. 04/23/2013 Appointment: Karma Bahena WPtel: [address] [place], [place] [phone] Other 04/23/2013 Patient Education: Patient Medication Summary [...] this regimen. 03/21/2013 Appointment: Laura Colin WPtel: [facility]1 [phone] Follow up 03/21/2013 Patient Education: Patient [...] uncontrolled. 01/16/2013 Appointment: Karma Bahena WPtel: [address] [place], [place] [phone] Follow up 01/16/2013 Patient Education: Patient Medication Summary Completed 01/16/2013 Patient Education: Hypertension Completed 01/16/2013 Visit Plan: Wound Instructions - Pt was instruced to keep the wound clean, wash with antibacterial soap, use triple antibiotic ointment, call if redness, pustular drainage, or any other acute conerns. 12/19/2012 Appointment: Karma Bahena WPtel: [address] [place] [phone] Other 12/19/2012 Patient Education: Patient Medication Summary Completed 12/19/2012 Patient Education: Patient Medication Summary Completed 12/17/2012 Visit Plan: Cellulitis - improved- monitor symptoms - need to check handon Monday morning. 12/14/2012 Appointment: Karma Bahena WPtel: [address] [place], [place] [phone] Follow up 12/14/2012 Patient Education: Patient Medication Summary Completed 12/14/2012 Visit Plan: Cellulitis - improved- monitor symptoms - need to check handon Monday morning. 12/12/2012 Appointment: Karma Bahena WPtel: [address] [place], [place] [phone] Work-in 12/12/2012 Patient Education: Patient Medication Summary [...] warmth, discharge. 12/10/2012 Appointment: Karma Bahena WPtel: [address] [place] [phone] Other 12/10/2012 Patient Education: Patient Medication Summary [...] becoming uncontrolled. 10/30/2012 Appointment: Karma Bahena WPtel: [facility]4 [facility] Follow up 10/30/2012 Patient Education: Patient Medication Summary Completed 10/30/2012 Appointment: Laura Colin WPtel: [phone] [phone] [place] Lab Draw 09/13/2012 Patient Education: [...] and 3.5. 08/08/2012 Appointment: Karma Bahena WPtel: [facility] Other 08/08/2012 Patient Education: Patient Medication [...] this regimen. 07/11/2012 Appointment: Karma Bahena WPtel: [facility]8 [facility] swelling, leg edema Other 07/11/2012 Patient [...] vaginally. 05/08/2012 Appointment: Karma Bahena WPtel: [phone] [facility] [place] Follow up 05/08/2012 Patient [...] during hospitalization. 04/18/2012 Appointment: Karma Bahena WPtel: [address] [place] [address] [place] Follow up 04/18/2012 Patient Education: Patient Medication Summary Completed 04/18/2012 Patient Education: High Blood Pressure: Essential Hypertension Completed 04/18/2012 Appointment: Karma Bahena WPtel: [facility]5 [facility] [place] Follow up 04/09/2012 Appointment: Karma Bahena WPtel: [facility] [place] Lab Draw 04/04/2012 Appointment: Laura Colin WPtel: [phone] [place] Lab Draw 03/19/2012 Visit Plan: [...] Completed 03/13/2012 Appointment: Karma Bahena WPtel: [phone] [facility] Lab Draw 03/08/2012 Patient Education: [...] rehab. 02/20/2012 Appointment: Karma Bahena WPtel: [phone] [facility] Other 02/20/2012 Patient Education: Patient [...] uncontrolled. 02/13/2012 Appointment: Laura Colin WPtel: 1010 [phone] Other 02/13/2012 Patient Education: Patient Medication Summary Completed 02/13/2012 Appointment: Karma Bahena WPtel: [facility]0 [facility] Lab Draw 02/07/2012 Visit Plan: Atrial [...] the medication. 02/01/2012 Appointment: Karma Bahena WPtel: [address] [place], [place] [phone] Other 02/01/2012 Patient Education: Patient Medication Summary Completed 02/01/2012 Patient Education: High Blood Pressure: Essential Hypertension Completed 02/01/2012 Appointment: Karma Bahena WPtel: [address] [place] [address] Lab Draw 01/17/2012 Visit Plan: Atrial Fibrillation [...] at home. 2012 Appointment: Karma Bahena WPtel: [address] [place] [phone] Other 2012 Patient Education: Patient Medication Summary Completed 2012 Patient Education: High Blood Pressure: Essential Hypertension Completed 2012 Appointment: Karma Bahena WPtel: [address] [place] [phone] Follow up 12/20/2011 Visit Plan: Dicyclomine up [...] emergency room. 12/01/2011 Appointment: Karma Bahena WPtel: [address] [place], [place] [phone] Other 12/01/2011 Patient Education: Patient Medication Summary [...] infection resolves. 11/23/2011 Appointment: Laura Colin WPtel: [facility]5 [phone] Other 11/23/2011 Patient Education: Patient Medication [...] hearing 10/17/2011 Appointment: Laura Colin WPtel: 1015 [phone] Other 10/17/2011 Patient Education: Patient Medication [...] irrigation. 10/03/2011 Appointment: Karma Bahena WPtel: [phone] [facility]6[address] Other 10/03/2011 Patient Education: Patient Medication Summary [...] evidence. 08/08/2011 Appointment: Karma Bahena WPtel: [phone] [facility] Other 08/08/2011 Patient Education: Patient Medication Summary Completed 08/08/2011 Patient Education: High Blood Pressure: Essential Hypertension Completed 08/08/2011 Visit Plan: Muscle cramps - the cramps are a little better, continue with the Diltiazem and it is okay to use the over the counter supplement with quinine - but use it sparingly. For the rash, use the prescripti on the coater hand prescribed for the itching , call if the rash is not improved. Torticollis - continue with physical therapy, call if the neck muscles do not continue to show improvement. 05/09/2011 Appointment: Karma Bahena WPtel: [address] [place] [phone] Other 05/09/2011 Patient Education: Patient Medication Summary [...] water aerobics. 03/29/2011 Appointment: Karma Bahena WPtel: [address] [place], [place] [phone] Other 03/29/2011 Patient Education: Patient Medication Summary Completed 03/29/2011 Appointment: Karma Bahena WPtel: [address] [place] [phone] Other 03/17/2011 Visit Plan: UTI - UA negative. Urge incontinence- restart on the vesicare- at 5 mg. Continue to avoid caffinated foods/fluids. Peripheral Neuropathy - per elementary school science teacher report - Continue with the metanex. Loss of weight - WEIGHT CHECK IN 2 WKS. Palpitations- likely stress induced. If the symptoms worsen, call the office. 03/15/2011 Appointment: Karma Bahena WPtel: [address] [place], [place] [phone] Follow up 03/15/2011 Patient Education: Patient Medication [...] avoid caffinated foods/fluids. Peripheral Neuropathy - per elementary school science teacher report - Continue with the metanex. Loss [...] therefore, would not change the medication. . APR-tcqvb-saz zpack-call if symptoms do not resolve or [...] For the rash, use the prescription the coater hand prescribed for the itching , call if [...] heart rate. Osteoarthritis - send pt to [facility] physical therapy for gereral osteoarhtritis [...] had left kidney and ureter removed in [place]- doing well . Hematuria - check UA. [...] treatment when you get back from [place] - will also ask him about doing [...] the treatment when you get back from [place] - will also ask him about doing [...]
--- NOTE | 2019-01-07 10:44 | Pulmonary Consultation ---
History of Present Illness History of Present Illness Date of Consultation 01/07/19 10:33 Time Seen by Provider: 10:33 Date of Admission History of Present Illness 84yo with hx of Afib, hyponatremia, pleural effusions recent hospitalization 12/10 - 12/27 presented to ED from [facility] via EMS secondary to worsening SOB. She was found to be hypoxic Pt was placed on BiPAP in the ED. PT was given lasix and Solumedrol in the ED. I am consulted for pulmonary/CC management. Unable to obtain ROS secondary to patient's respiratory distress. Allergies and Home Medications Allergies Coded Allergies: Bacitracin Zinc (Verified Allergy, Unknown, 10/06/15) bacitracin (Verified Allergy, Unknown, 10/06/15) benzalkonium chloride (Verified Allergy, Unknown, 10/06/15) gramicidin D (Verified Allergy, Unknown, 10/06/15) hydrocortisone (Verified Allergy, Unknown, 10/06/15) lidocaine (Verified Allergy, Unknown, 10/06/15) meclizine (Verified Allergy, Unknown, 10/06/15) neomycin (Verified Allergy, Unknown, 10/06/15) neomycin sulfate (Verified Allergy, Unknown, 10/06/15) polymyxin B (Verified Allergy, Unknown, 10/06/15) polymyxin B sulfate (Verified Allergy, Unknown, 10/06/15) Home Medications Acetaminophen 325 Mg Tablet, 325-650 MG PO Q6H PRN for PAIN-MILD, (Reported) Albuterol Sulfate 90 Mcg Aer.pow.ba, 2 PUFF INH Q6H PRN for SHORTNESS OF BREATH, (Reported) Yhcdo-W-Cfcrcmjhrtepp 150 Unit Tablet, 2 TAB PO AC, (Reported) Apixaban 2.5 Mg Tablet, 2.5 MG PO BID, (Reported) Brinzolamide/Brimonidine Tart 8 Ml Drops.susp, 1 DROP OS BID, (Reported) Calcium Carbonate/Vitamin D3 1 Each Tablet, 1 TAB PO BID, (Reported) Carboxymethyl/Glycerin/Poly80 10 Ml Drops, 2 DROP OU QID, (Reported) Cetirizine HCl 10 Mg Tablet, 10 MG PO HS, (Reported) Cyclobenzaprine HCl 5 Mg Tablet, 2.5 MG PO Q8H, (Reported) TAKES 1/2 (5MG) TABLET Diclofenac Sodium 100 Gm Gel..gram., 2 GM TOP QID PRN for JOINT PAIN, (Reported) APPLY TO SHOULDER AND HANDS Digoxin 125 Mcg Tablet, 125 MCG PO Q48H@1900, (Reported) HOLD FOR SBP <90 OR HR <60 Diltiazem HCl 60 Mg Cap.er.12h, 60 MG PO Q12H, (Reported) Docusate Sodium 100 Mg Capsule, 100 MG PO HS, (Reported) Duloxetine HCl 20 Mg Capsule.dr, 20 MG PO BID, (Reported) Furosemide 40 Mg Tablet, 40 MG PO DAILY, (Reported) Ipratropium/Albuterol Sulfate 3 Ml Ampul.neb, 3 ML NEB TID, (Reported) Ipratropium/Albuterol Sulfate 3 Ml Ampul.neb, 3 ML NEB Q3H PRN for SHORTNESS OF BREATH, (Reported) L.acidoph & Paracasei,B.lactis 1 Each Capsule, 1 CAP PO DAILY, (Reported) Levothyroxine Sodium 75 Mcg Tablet, 75 MCG PO DAILY, (Reported) Loperamide HCl 2 Mg Tablet, 2 MG PO UD PRN for DIARRHEA, (Reported) Lorazepam 0.5 Mg Tablet, 0.5 MG PO HS, (Reported) Lorazepam 0.5 Mg Tablet, 0.25 MG PO Q6H PRN for ANXIETY, (Reported) TAKES 1/2 (0.5MG) TABLET Loteprednol Etabonate 5 Gm Drops.gel, 1 DROP OD BID, (Reported) Magnesium Oxide 500 Mg Capsule, 500 MG PO DAILY, (Reported) Metoprolol Succinate 100 Mg Tab.er.24h, 100 MG PO DAILY, (Reported) Pantoprazole Sodium 40 Mg Tablet.dr, 40 MG PO HS, (Reported) Polyethylene Glycol 3350 17 Gm Powd.pack, 8.5 GM PO HS, (Reported) Potassium Chloride 20 Meq Tablet.er, 20 MEQ PO DAILY, (Reported) Saliva Stimulant Agents Comb.3 1 Each [place], 2 SPRAYS BC Q4H PRN for DRY MOUTH, (Reported) Simethicone 125 Mg Capsule, 125 MG PO TIDPC PRN for GAS, (Reported) Sodium Chloride 1 Gm Tab, 1 GM PO DAILY, (Reported) Sucralfate 1 Gm/10 Ml Oral.susp, 10 ML PO TID PRN for REFLUX, (Reported) Past Eyfymsd-Greien-[place] Hx Past Med/Social Hx: Reviewed and Corrections made Patient Social History Alcohol Use: Denies Use Recreational Drug Use: No Smoking Status: Never a Smoker 2nd Hand Smoke Exposure: No Recent Foreign Travel: No Contact w/Someone Who Travel: No Recent Infectious Disease Expo: No Recent Hopitalizations: No (rotator cuff surgey, 2004, 2009 [place] glaucoma) Immunizations Up To Date Date of Pneumonia Vaccine: Jul 11, 2014 Date of Influenza Vaccine: Apr 09, 2015 Past Medical History Surgeries: Yes (BOWEL RESECTION, KIDNEY REMOVAL) Abdominal, Eye Surgery, Hysterectomy, Orthopedic Respiratory: Yes (pulmonary hypertension, pleural effusions. Chronic hypoxia on continuous nasal cannula) Pneumonia Currently Using CPAP: No Currently Using BIPAP: No Cardiac: Yes (MITRAL VALVE PROLAPSE) Atrial Fibrillation, Coronary Artery Disease, High Cholesterol, Hypertension, Valvular Heart Disease Neurological: Yes Neuropathy : No Reproductive Disorders: No Sexually Transmitted Disease: No Genitourinary: Yes (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) Gastrointestinal: Yes (35" OF COLON REMOVED) Gastroesophageal Reflux Musculoskeletal: Yes Osteoporosis Endocrine: Yes Hypothyroidsim Cancer: Yes Kidney Psychosocial: No Sleep Difficulties, Anxiety, Depression Integumentary: Yes (RAYNAUDS) Family Medical History Reviewed Nursing Family Hx Heart Disease Review of Systems Time Seen by Provider: 06:01 Sepsis Event Evaluation Height, Weight, BMI Height: 5'1.00" Weight: 100lbs. 9.0oz. 45.895602ki; 20.0 BMI Method:Stated Exam Exam Vital Signs Date Time Temp Pulse Resp B/P (MAP) Pulse Ox O2 Delivery O2 Flow Rate FiO2 01/07/19 07:52 111 24 96 50.00 01/07/19 07:34 95.8 103 24 122/80 (94) 100 NIV/Bilevel Height & Weight Height: 5'1.00" Weight: 100lbs. 9.0oz. 45.940272ja; 20.0 BMI Method:Stated General Appearance: Anxious, Chronically ill, Severe Distress, Thin HEENT: PERRL/EOMI, Pharynx Normal Neck: Full Range of Motion, Non Tender, Supple Respiratory: Chest Non Tender, Accessory Muscle Use, Crackles, Decreased Breath Sounds, Respiratory Distress Cardiovascular: No Murmur, Tachycardia Capillary Refill: Less Than 3 Seconds Gastrointestinal: normal bowel sounds, non tender, soft Neurologic/Psychiatric: Alert Skin: Normal Color, Warm/Dry Lymphatic: No Adenopathy Results Lab Laboratory Tests 01/07/19 07:38 Assessment/Plan Assessment/Plan Acute on chronic respiratory failure -BiPAP currently -SVNS -Continue Solumedrol for now Pneumonia -Continue Zosyn Pulmonary edema CHFAE -Echocardiogram done 12/11/18 revealed EF 55-65% Left atrial dilatation 4.2cm, MVP with mod MR, mod-sev TR PA 50-55mmHg, continue to monitor Pulmonary HTN - Group II and group III -Oxygen -Monitor NSTEMI -Cardiology consulted Afib RVR Metabolic lactic acidosis -Monitor -gentle hydration secondary to pulmonary status Hx of left nephrectomy Overall prognosis is guarded to poor. Pt is already a DNR. Consider hospice care. I discussed with family extensively regarding pt's current condition and prognosis. They would like to wait until daughter gets her to change patient to comfort care only. ZOILA LOZADA DO Jan 07, 2019 10:44
--- NOTE | 2019-01-07 12:30 | NUR ---
BYRON SCHMIDT admitted to room CU5-1, with an admitting diagnosis of RESP FAILURE, on 01/07/19 from ER via [facility], accompanied by STAFF.BYRON SCHMIDT introduced to surroundings, call light, bed controls, phone, TV, temperature control, lights, meal times, smoking policy, visitor policy, side rail policy, bathrooms and showers. Patient Rights given to patient in the handbook. BYRON SCHMIDT verbalizes understanding that [facility] is not responsible for the loss or damage to any personal effects or valuables that are kept in the patients posession during their hospitalization. The following Patient Care Plans were discussed with the PT: Discharge Planning, IMPAIRED GAS EXCHANGE,ANXIETY, and KNOWLEDGE DEFICIT; CHF. BYRON SCHMIDT verbalizes understanding of Interdisciplinary Patient Education. Patient and family were informed about the Rapid Response Team and its purpose.
[2019-01-07] MEDS: CATHETER FLUSH 10 ML SYR IV SCH ×2 (13:26→22:24)
[2019-01-07] MEDS: methylPREDNISolone 40 MG/ML (Solu-MEDROL) VIAL IV SCH ×3 (13:26→23:58)
[2019-01-07] MEDS ORDERED: CATHETER FLUSH 10 ML SYR IV PRN (13:30)
[2019-01-07] MEDS ORDERED: ONDANSETRON 4 MG/2 ML (SDV) Z0FRAN IV PRN (13:30)
[2019-01-07] MEDS: PIPERACILLIN/TAZO 4.5 GM/NS 100 ML IV SCH ×4 (15:21→23:53)
[2019-01-07] MEDS: RT-ALBUTEROL/IPRATROPIUM 3 ML (DUONEB) VIAL IH SCH ×3 (16:37→22:45)
[2019-01-07] MEDS: RT-ALBUTEROL SULF 2.5 MG/3 ML PRE-MIX VIAL IH PRN (16:38)
--- OUTSIDE RECORDS SUMMARY | 2019-01-07 16:42 | XMS REPORT | Clinical Summary ---
Author Author [facility] Organization [facility] Address Unknown Phone Unavailable Care Team Providers Care Wedding Consultant Name Role Phone Robert Longoria MD Unavailable Karma Bahena MD PCP Source Comments Some departments are not documenting in the electronic medical record. If you d o not see the information that you expected, contact Release of Information in [facility] department at [phone] for further assistan ce in locating additional records.[facility] Allergies Comments Active Allergy Reactions Severity Noted [...] 0 10 mg tablet mouth daily. Active [id number] Take by 0 (BEANO PO) mouth. Active [...] radical nephrourete[facility] -- ; [facility] police surgeon Nx Mx, low grade. 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
--- OUTSIDE RECORDS SUMMARY | 2019-01-07 16:43 | XMS REPORT | Encounter Summary ---
Author Author [facility] Organization [facility] Address Unknown Phone Unavailable Care Team Providers Care Dicer Operator Name Role Phone Robert Longoria MD Unavailable Karma Bahena MD PCP Reason for Visit * Reason Comments Bladder Cancer * Outpatient Surgery (Routine) Referred By Contact Referred To Contact Status Reason Specialty Diagnoses / Procedures Robert Longoria MD [address] [place] [address] [facility] [address] [place] [address] No Auth Needed Urology Diagnoses 6mo CYSTO-Nacho P rocedures VT CYSTOURETHROSCOPY PROCEDURE - 30 Encounter Details Care Team Description Date Type Department Robert Longoria MD [address] [place] [address] History of renal pelvis cancer (Primary Dx) 09/07/2018 Procedure visit [facility] [address] [place] [address] Social History Date Tobacco Use [...] Comments Vital Sign 156/92 09/07/2018 1:03 PM GRAIN GRADER Blood Pressure 107 09/07/2018 1:03 PM GRAIN GRADER Pulse - - Temperature - - Respiratory Rate - - Oxygen Saturation - - Inhaled Oxygen Concentration 47.6 kg (105 lb) 09/07/2018 1:03 PM GRAIN GRADER Weight 154.9 cm (5' 1") 09/07/2018 1:03 PM GRAIN GRADER Height 19.84 09/07/2018 1:03 PM GRAIN GRADER Body Mass Index documented in this encounter Procedure Notes * Robert Longoria MD - 09/07/2018 1:00 PM GRAIN GRADER Associated Order(s): CYSTOSCOPY Procedure(s): VT CYSTOURETHROSCOPY Pre-Procedure Diagnose(s): History of renal pelvis cancer Date : 09/10/2018 Surgeon: Robert Longoria MD, [facility] Preoperative Diagnosis: ureteral cancer Postoperative Diagnosis: ureteral [...] discharged from the clinic in stable condition. N GRADER documented in this encounter Plan of Treatment Not on filedocumented as of this encounter Procedures Comments Procedure Name Priority Date/Time Associated Diagnosis VT CYSTOURETHROSCOPY Routine 09/07/2018 History of renal pelvis 1:00 PM GRAIN GRADER cancer documented in this encounter Results * CYSTOSCOPY (09/07/2018 1:00 PM GRAIN GRADER) Narrative Performed At Robert Longoria MD 09/10/20187:44 [...]
[2019-01-07] MEDS ORDERED: DEXMEDETOMIDINE INJECTION 200 MCG in NS (IVPB) 50 ML IV SCH (17:00)
[2019-01-07] MEDS ORDERED: DEXMEDETOMIDINE INJECTION 1,000 MCG in NS (IVPB) 250 ML IV SCH (17:15)
--- NOTE | 2019-01-07 18:02 | Consultation-Cardiology ---
HPI-Cardiology Cardiology Consultation: Date of Consultation 01/07/19 Time Seen by a Provider: 17:30 Date of Admission Attending Physician Karma Bahena MD Admitting Physician Karma Bahena MD Consulting Physician SHAWN KRUGER MD, MA, FACP, FACC, FSCAI, CCDS Physician requesting consult: Dr Bahena HPI: Chief Complaint: CC: Shortness of breath HPI 84 yo woman, recently d/c'd after hosp for resp failure, admitted this am with increasing shortness of breath and gen malaise. Currently on BiPAP, not able to provide any detailed history. Does not report cp or palp or syncope Review of Systems-Cardiology Review of Systems Constitutional: As described under HPI, other (Sources of ROS: pt, son, [id number], ER physician, recent records) Eyes: No vision change Ears/Nose/Throat: No ear discharge, No nasal drainage, No recent hearing loss Respiratory: As described under HPI Cardiovascular: As described under HPI Gastrointestinal: No diarrhea, No nausea, No vomiting Genitourinary: No dysuria, No hematuria : No Musculoskeletal: back pain (chronic) Skin: No rash, No ulcerations Psychiatric/Neurological: No seizure, No focal weakness, No syncope Hematologic: No bleeding abnormalities [id number]-Xtadll Hx Patient Social History Alcohol Use: Denies Use Recreational Drug Use: No Smoking Status: Never a Smoker 2nd Hand Smoke Exposure: No Recent Foreign Travel: No Recent Infectious Disease Expo: No Immunizations Up To Date Date of Pneumonia Vaccine: Jul 11, 2014 Date of Influenza Vaccine: Apr 09, 2015 Past Medical History PMH As described under Assessment. Family Medical History Family Medical History: No fam h/o early CAD or SCD Allergies and Home Medications Allergies Coded Allergies: Bacitracin Zinc (Verified Allergy, Unknown, 10/06/15) bacitracin (Verified Allergy, Unknown, 10/06/15) benzalkonium chloride (Verified Allergy, Unknown, 10/06/15) gramicidin D (Verified Allergy, Unknown, 10/06/15) hydrocortisone (Verified Allergy, Unknown, 10/06/15) lidocaine (Verified Allergy, Unknown, 10/06/15) meclizine (Verified Allergy, Unknown, 10/06/15) neomycin (Verified Allergy, Unknown, 10/06/15) neomycin sulfate (Verified Allergy, Unknown, 10/06/15) polymyxin B (Verified Allergy, Unknown, 10/06/15) polymyxin B sulfate (Verified Allergy, Unknown, 10/06/15) Home Medications Acetaminophen 325 Mg Tablet, 325-650 MG PO Q6H PRN for PAIN-MILD, (Reported) Albuterol Sulfate 90 Mcg Aer.pow.ba, 2 PUFF INH Q6H PRN for SHORTNESS OF BREATH, (Reported) Qynbo-F-Hzedvgdrbwrpy 150 Unit Tablet, 2 TAB PO AC, (Reported) Apixaban 2.5 Mg Tablet, 2.5 MG PO BID, (Reported) Brinzolamide/Brimonidine Tart 8 Ml Drops.susp, 1 DROP OS BID, (Reported) Calcium Carbonate/Vitamin D3 1 Each Tablet, 1 TAB PO BID, (Reported) Carboxymethyl/Glycerin/Poly80 10 Ml Drops, 2 DROP OU QID, (Reported) Cetirizine HCl 10 Mg Tablet, 10 MG PO HS, (Reported) Cyclobenzaprine HCl 5 Mg Tablet, 2.5 MG PO Q8H, (Reported) TAKES 1/2 (5MG) TABLET Diclofenac Sodium 100 Gm Gel..gram., 2 GM TOP QID PRN for JOINT PAIN, (Reported) APPLY TO SHOULDER AND HANDS Digoxin 125 Mcg Tablet, 125 MCG PO Q48H@1900, (Reported) HOLD FOR SBP <90 OR HR <60 Diltiazem HCl 60 Mg Cap.er.12h, 60 MG PO Q12H, (Reported) Docusate Sodium 100 Mg Capsule, 100 MG PO HS, (Reported) Duloxetine HCl 20 Mg Capsule.dr, 20 MG PO BID, (Reported) Furosemide 40 Mg Tablet, 40 MG PO DAILY, (Reported) Ipratropium/Albuterol Sulfate 3 Ml Ampul.neb, 3 ML NEB TID, (Reported) Ipratropium/Albuterol Sulfate 3 Ml Ampul.neb, 3 ML NEB Q3H PRN for SHORTNESS OF BREATH, (Reported) L.acidoph & Paracasei,B.lactis 1 Each Capsule, 1 CAP PO DAILY, (Reported) Levothyroxine Sodium 75 Mcg Tablet, 75 MCG PO DAILY, (Reported) Loperamide HCl 2 Mg Tablet, 2 MG PO UD PRN for DIARRHEA, (Reported) Lorazepam 0.5 Mg Tablet, 0.5 MG PO HS, (Reported) Lorazepam 0.5 Mg Tablet, 0.25 MG PO Q6H PRN for ANXIETY, (Reported) TAKES 1/2 (0.5MG) TABLET Loteprednol Etabonate 5 Gm Drops.gel, 1 DROP OD BID, (Reported) Magnesium Oxide 500 Mg Capsule, 500 MG PO DAILY, (Reported) Metoprolol Succinate 100 Mg Tab.er.24h, 100 MG PO DAILY, (Reported) Pantoprazole Sodium 40 Mg Tablet.dr, 40 MG PO HS, (Reported) Polyethylene Glycol 3350 17 Gm Powd.pack, 8.5 GM PO HS, (Reported) Potassium Chloride 20 Meq Tablet.er, 20 MEQ PO DAILY, (Reported) Saliva Stimulant Agents Comb.3 1 Each [place], 2 SPRAYS BC Q4H PRN for DRY MOUTH, (Reported) Simethicone 125 Mg Capsule, 125 MG PO TIDPC PRN for GAS, (Reported) Sodium Chloride 1 Gm Tab, 1 GM PO DAILY, (Reported) Sucralfate 1 Gm/10 Ml Oral.susp, 10 ML PO TID PRN for REFLUX, (Reported) Patient Home Medication List Home Medication List Reviewed: Yes Physical Exam-Cardiology Physical Exam Vital Signs/I&O 01/07/19 01/07/19 01/07/19 01/07/19 07:34 07:52 12:29 12:30 Temp 95.8 Pulse 103 111 92 Resp 24 24 14 B/P (MAP) 122/80 (94) 116/61 (79) Pulse Ox 100 96 100 97 O2 Delivery NIV/Bilevel NIV CPAP NIV Bilevel O2 Flow Rate 50.00 FiO2 50 01/07/19 01/07/19 01/07/19 01/07/19 12:30 12:34 12:37 12:45 Temp 97.7 Pulse 123 151 135 Resp 22 34 B/P (MAP) 158/132 (141) Pulse Ox 96 99 O2 Delivery NIV Bilevel O2 Flow Rate 50.00 50.00 01/07/19 01/07/19 01/07/19 01/07/19 14:00 15:00 15:22 15:32 Temp 97.4 Pulse 87 92 Resp 10 15 B/P (MAP) 111/68 (82) 111/68 (82) Pulse Ox 100 100 96 O2 Delivery NIV Bilevel NIV Bilevel NIV Bilevel O2 Flow Rate 50.00 50.00 50.00 01/07/19 16:39 Pulse 107 Resp 16 Pulse Ox 100 O2 Flow Rate 50.00 Capillary Refill : Less Than 3 SecondsGreater Than 3 Seconds Constitutional: other (Thin a) HEENT: PERRL, EOMI; No xanthelasmas are seen Neck: carotid pulses are 2 + bilaterally, with good upstrokes Respiratory: other (Struggling with breathing, on BiPAP, using accessory muscles, fair air entry, diminished at the bases, scattered rhonchi and matias wheezes) Cardiovascular: irregularly irregular, S1 and S2, systolic murmur (soft SOPHIE at card base) Gastrointestinal: No tender; soft; No guarding, No rebound; audible bowel sounds Extremities: No clubbing, No cyanosis; significant edema (bilateral, with reddish discoloration of overlying skin) Neurologic/Psychiatric: other (appears somewhat confused, but is appropriately responsive and seems to move all her limbs albeit with diminished strength (4/5 power bilat)) Skin: No rash on exposed areas, No ulcerations on exposed areas Data Review Labs Laboratory Tests 01/07/19 07:38: White Blood Count 12.8H, Red Blood Count 4.13L, Hemoglobin 12.5, Hematocrit 37, Mean Corpuscular Volume 91, Mean Corpuscular Hemoglobin 30, Mean Corpuscular Hemoglobin Concent 33, Red Cell Distribution Width 14.3, Platelet Count 384, Mean Platelet Volume 9.6, Neutrophils (%) (Auto) 76H, Lymphocytes (%) (Auto) 8L, Monocytes (%) (Auto) 13H, Eosinophils (%) (Auto) 3, Basophils (%) (Auto) 1, Neutrophils # (Auto) 9.7H, Lymphocytes # (Auto) 1.1, Monocytes # (Auto) 1.7H, Eosinophils # (Auto) 0.3, Basophils # (Auto) 0.1, Prothrombin Time 16.6H, INR Comment 1.3, Activated Partial Thromboplast Time 31, Sodium Level 127L, Potassium Level 4.4, Chloride Level 95L, Carbon Dioxide Level 21, Anion Gap 11, Blood Urea Nitrogen 14, Creatinine 0.82, Estimat Glomerular Filtration Rate > 60, BUN/Creatinine Ratio 17, Glucose Level 174H, Lactic Acid Level 2.61*H, Calcium Level 8.2L, Corrected Calcium 9.2, Magnesium Level 1.8, Total Bilirubin 0.7, Aspartate Amino Transf (AST/SGOT) 28, Alanine Aminotransferase (ALT/SGPT) 27, Alkaline Phosphatase 74, Troponin I 0.045H, C-Reactive Protein High Sensitivity 6.00H, B-Type Natriuretic Peptide 205.4H, Total Protein 5.9L, Albumin 2.8L, Thyroid Stimulating Hormone (TSH) 4.73, Free Thyroxine 1.48, Digoxin Level 0.54L, Smear Scan YES 01/07/19 07:47: Blood Gas Puncture Site RT RADIAL, Blood Gas Patient Temperature 95.8, Arterial Blood pH 7.41, Arterial Blood Partial Pressure CO2 37, Arterial Blood Partial Pressure O2 60L, Arterial Blood HCO3 23, Arterial Blood Total CO2 24.5, Arterial Blood Oxygen Saturation 92L, Arterial Blood Base Excess -1.0, Jaxon Test YES-P OS, Blood Gas Ventilator Setting NO, Blood Gas Inspired Oxygen BIPAP 01/07/19 09:00: Urine Color YELLOW, Urine Clarity CLEAR, Urine pH 6.5, Urine Specific [place] 1.010L, Urine Protein NEGATIVE, Urine Glucose (UA) NEGATIVE, Urine Ketones NEGATIVE, Urine Nitrite NEGATIVE, Urine Bilirubin NEGATIVE, Urine Urobilinogen 4H, Urine Leukocyte Esterase NEGATIVE, Urine RBC (Auto) NEGATIVE, Urine RBC RARE, Urine WBC NONE, Urine Crystals NONE, Urine Bacteria NEGATIVE, Urine Casts NONE, Urine Mucus NEGATIVE, Urine Culture Indicated NO 01/07/19 09:40: Lactic Acid Level 3.13*H 01/07/19 13:55: Troponin I 0.658*H Laboratory Tests 01/07/19 07:38 A/P-Cardiology Assessment/Admission Diagnosis Ac resp failure, type 1, multifactorial (see below) Sepsis Pneumonia and bilateral pleural effusion Marked general debility Ac on chronic diastolic CHF Chronic hyponatremia, likely due to chronic diuretic therapy, but also consider other etiologies Chronic atrial fibrillation; history of tachy/bradycardia episodes with episode of bradycardia noted on Holter monitor in 2014, discussed pacemaker implantation with her medical insurance claims processor and decision was to treat conservatively Echocardiogram done 12/11/18: EF 55-65% Left atrial dilatation 4.2cm, MVP with mod MR, mod-sev TR PA 50-55mmHg Pulmonary hypertension-PA pressure 50-55mmHg on echo-etiology undetermined Hypertension, by history Hyperlipidemia, by history 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 Family is considering comfort care. She has DNR status (as previously requested by her) * Diuretics as needed * Monitor labs Clinical Quality Measures DVT/VTE Risk/Contraindication: Risk Factor Score Per Nursin RFS Level Per Nursing on Admit: 4+=Very High SHAWN KRUGER MD FACP FACC CCDS Jan 07, 2019 18:02
--- NOTE | 2019-01-07 20:15 | NUR ---
DR. SELLERS IN TO SEE PT AT THIS TIME AND SPEAK WITH FAMILY. PT'S SON WOULD LIKE TO DISCUSS COMFORT CARE WITH HIS SISTER WHEN SHE GETS INTO [place]OWN TOMORROW MORNING. B/P 74/43 AT THIS TIME AND REPORTED TO DOCTOR. PRECEDEX DRIP OFF SINCE 1999. ORDER RECEIVED FOR 200 ML BOLUS IF SYS B/P GETS INTO THE 60'S ONLY. AND TO NOTIFY HER THROUGHOUT THE NIGHT INSTEAD OF E-ICU WITH CHANGES.
--- NOTE | 2019-01-07 20:57 | History & Physicial ---
History of Present Illness History of Present Illness Reason for visit/HPI PT IS AN 84 Y/O FEMALE WHO IS WELL KNOWN TO ME FROM CLINIC. SHE PRESENTED TO THE EMERGENCY DEPARTMENT THIS MORNING WITH ACUTE WORSENING OF SHORTNESS OF BREATH. SHE REPORTS THAT SHE HAD BEEN FEELING PROGRESSIVELY MORE SHORT OF BREATH YESTERDAY EVENING AND THEN THIS MORNING IT WORSENED TO THE POINT THAT THE HALF-WAY CALLED THE AMBULANCE TO TAKE HER TO THE HOSPITAL. SHE WAS EVALUATED AND FOUND TO BE IN RECURRENT RESPIRATORY DISTRESS DUE TO PULMONARY EFFUSIONS DUE TO HEART FAILURE AND ATRIAL FIBRILLATION WITH SUSPECTED RECURRENT PNEUMONIA. SHE WAS PLACED ON BIPAP WITH IMPROVED SYMPTOMS Date of Admission Jan 07, 2019 at 09:31 Date Seen by a Provider: Jan 07, 2019 Time Seen by a Provider: 09:20 Attending Physician Junior Bahena MD Admitting Physician Junior Bahena MD Consult DR. NEVILLE KRUGER Allergies and Home Medications Allergies Coded Allergies: Bacitracin Zinc (Verified Allergy, Unknown, 10/06/15) bacitracin (Verified Allergy, Unknown, 10/06/15) benzalkonium chloride (Verified Allergy, Unknown, 10/06/15) gramicidin D (Verified Allergy, Unknown, 10/06/15) hydrocortisone (Verified Allergy, Unknown, 10/06/15) lidocaine (Verified Allergy, Unknown, 10/06/15) meclizine (Verified Allergy, Unknown, 10/06/15) neomycin (Verified Allergy, Unknown, 10/06/15) neomycin sulfate (Verified Allergy, Unknown, 10/06/15) polymyxin B (Verified Allergy, Unknown, 10/06/15) polymyxin B sulfate (Verified Allergy, Unknown, 10/06/15) Home Medications Acetaminophen 325 Mg Tablet, 325-650 MG PO Q6H PRN for PAIN-MILD, (Reported) Albuterol Sulfate 90 Mcg Aer.pow.ba, 2 PUFF INH Q6H PRN for SHORTNESS OF BREATH, (Reported) Otays-K-Mzdsomozmvrpc 150 Unit Tablet, 2 TAB PO AC, (Reported) Apixaban 2.5 Mg Tablet, 2.5 MG PO BID, (Reported) Brinzolamide/Brimonidine Tart 8 Ml Drops.susp, 1 DROP OS BID, (Reported) Calcium Carbonate/Vitamin D3 1 Each Tablet, 1 TAB PO BID, (Reported) Carboxymethyl/Glycerin/Poly80 10 Ml Drops, 2 DROP OU QID, (Reported) Cetirizine HCl 10 Mg Tablet, 10 MG PO HS, (Reported) Cyclobenzaprine HCl 5 Mg Tablet, 2.5 MG PO Q8H, (Reported) TAKES 1/2 (5MG) TABLET Diclofenac Sodium 100 Gm Gel..gram., 2 GM TOP QID PRN for JOINT PAIN, (Reported) APPLY TO SHOULDER AND HANDS Digoxin 125 Mcg Tablet, 125 MCG PO Q48H@1900, (Reported) HOLD FOR SBP <90 OR HR <60 Diltiazem HCl 60 Mg Cap.er.12h, 60 MG PO Q12H, (Reported) Docusate Sodium 100 Mg Capsule, 100 MG PO HS, (Reported) Duloxetine HCl 20 Mg Capsule.dr, 20 MG PO BID, (Reported) Furosemide 40 Mg Tablet, 40 MG PO DAILY, (Reported) Ipratropium/Albuterol Sulfate 3 Ml Ampul.neb, 3 ML NEB TID, (Reported) Ipratropium/Albuterol Sulfate 3 Ml Ampul.neb, 3 ML NEB Q3H PRN for SHORTNESS OF BREATH, (Reported) L.acidoph & Paracasei,B.lactis 1 Each Capsule, 1 CAP PO DAILY, (Reported) Levothyroxine Sodium 75 Mcg Tablet, 75 MCG PO DAILY, (Reported) Loperamide HCl 2 Mg Tablet, 2 MG PO UD PRN for DIARRHEA, (Reported) Lorazepam 0.5 Mg Tablet, 0.5 MG PO HS, (Reported) Lorazepam 0.5 Mg Tablet, 0.25 MG PO Q6H PRN for ANXIETY, (Reported) TAKES 1/2 (0.5MG) TABLET Loteprednol Etabonate 5 Gm Drops.gel, 1 DROP OD BID, (Reported) Magnesium Oxide 500 Mg Capsule, 500 MG PO DAILY, (Reported) Metoprolol Succinate 100 Mg Tab.er.24h, 100 MG PO DAILY, (Reported) Pantoprazole Sodium 40 Mg Tablet.dr, 40 MG PO HS, (Reported) Polyethylene Glycol 3350 17 Gm Powd.pack, 8.5 GM PO HS, (Reported) Potassium Chloride 20 Meq Tablet.er, 20 MEQ PO DAILY, (Reported) Saliva Stimulant Agents Comb.3 1 Each [place], 2 SPRAYS BC Q4H PRN for DRY MOUTH, (Reported) Simethicone 125 Mg Capsule, 125 MG PO TIDPC PRN for GAS, (Reported) Sodium Chloride 1 Gm Tab, 1 GM PO DAILY, (Reported) Sucralfate 1 Gm/10 Ml Oral.susp, 10 ML PO TID PRN for REFLUX, (Reported) Patient Home Medication List Home Medication List Reviewed: Yes Past Tfsktnc-Kxfltn-Ockkrb Hx Patient Social History Marrital Status: Number of Children: 2 Number of living children: 2 Living Status: LIVES AT HOME ALONE, RECENTLY HOSPITALIZED AND NOW AT [facility] Employed/Student: retired Alcohol Use: Denies Use Recreational Drug Use: No Smoking Status: Never a Smoker 2nd Hand Smoke Exposure: No Recent Foreign Travel: No Contact w/other who traveled: No Recent Hopitalizations: No (rotator cuff surgey, 2004, 2008 [place] glaucoma) Recent Infectious Disease Expo: No Immunizations Up To Date Date of Pneumonia Vaccine: Jul 11, 2014 Date of Influenza Vaccine: Apr 09, 2015 Surgeries Yes (BOWEL RESECTION, KIDNEY REMOVAL) Abdominal, Eye Surgery, Hysterectomy, Orthopedic Respiratory Yes (pulmonary hypertension, pleural effusions. Chronic hypoxia on continuous nasal cannula) Currently Using CPAP: No Currently Using BIPAP: No Cardiovascular Yes (MITRAL VALVE PROLAPSE) Atrial Fibrillation, Coronary Artery Disease, High Cholesterol, Hypertension, Valvular Heart Disease Neurological Yes Neuropathy Reproductive System : No Hx Reproductive Disorders: No Sexually Transmitted Disease: No Genitourinary Yes (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) Gastrointestinal Yes (35" OF COLON REMOVED) Gastroesophageal Reflux Musculoskeletal Yes Osteoporosis Endocrine History of Endocrine Disorders: Yes Endocrine Disorders: Hypothyroidsim Cancer Yes Kidney Type of Treatment: Surgical Intervention Psychosocial History of Psychiatric Problem: No Behavioral Health Disorders: Sleep Difficulties, Anxiety, Depression Integumentary History of Skin or Integumenta: Yes (RAYNAUDS) Reviewed Nursing Assessment Reviewed/Agree w Nursing PMH: Yes Family Medical History Significant Family History: Heart Disease Review of Systems Constitutional: No chills, No fever; malaise, weakness EENTM: hoarseness; No throat pain Respiratory: cough, dyspnea on exertion, short of breath Cardiovascular: No chest pain; edema; No palpitations Gastrointestinal: No nausea, No vomiting Genitourinary: frequency Musculoskeletal: muscle weakness Skin: no symptoms reported Psychiatric/Neurological: Denies Anxiety, Denies Depressed; Weakness All Other Systems Reviewed Negative Unless Noted: Yes Physical Exam Vital Signs Vital Signs - First Documented 01/07/19 01/07/1919 07:34 07:52 12:30 Temp 95.8 Pulse 103 Resp 24 B/P (MAP) 122/80 (94) Pulse Ox 100 O2 Delivery NIV/Bilevel O2 Flow Rate 50.00 FiO2 50 Capillary Refill : Less Than 3 SecondsGreater Than 3 Seconds Height, Weight, BMI Height: 5'1.00" Weight: 118lbs. 5.0oz. 53.472709oz; 22.4 BMI Method:Stated General Appearance: Moderate Distress, Thin HEENT: Pharynx Normal Neck: Full Range of Motion, Non Tender, Supple Respiratory: Chest Non Tender, Crackles, Decreased Breath Sounds Cardiovascular: Systolic Murmur, Irregularly Irregular Gastrointestinal: Normal Bowel Sounds, No Organomegaly, No Pulsatile Mass, Non Tender, Soft Rectal: Deferred Extremity: Pedal Edema (3-4+ PITTING EDEMA BILATERAL LOWER EXTREMITIES AND UPPER EXTREMITIES 2+) Neurologic/Psychiatric: Alert, Oriented x3, No Motor/Sensory Deficits, Normal Mood/Affect, wrapper counter II-XII Norm as Tested Skin: Normal Color, Warm/Dry Lymphatic: No Adenopathy Assessment/Plan Assessment and Plan ACUTE RESPIRATORY FAILURE SEPSIS PNEUMONIA NSTEMI PULMONARY EFFUSION ATRIAL FIBRILLATION HYPOTENSION ADULT FAILURE TO THRIVE LEUKOCYTOSIS HYPONATREMIA LACTIC ACIDOSIS HX RENAL CELL CARCINOMA ACUTE RESPIRATORY FAILURE WITH SEPSIS DUE TO PNEUMONIA - PT IS CURRENTLY ON ANTIBIOTICS - DR. LOZADA AND I HAVE BOTH DISCUSSED WITH THE PT'S SON AND DTR ABOUT COMFORT CARE IN THE HOSPITAL. THEY ARE IN AGREEMENT WITH THIS PLAN AND WOULD LIKE TO GIVE HER A CHANCE TO REST OVERNIGHT ON VAPOTHERM AND INITIATE COMFORT CARE TOMORROW MORNING AFTER SHE IS MORE ALERT TO DISCUSS THIS DECISION. NSTEMI - SUPPORTIVE CARE ONLY AT THIS TIME - DEFER TO CARDIOLOGY PULMONARY EFFUSION - LASIX GIVEN IN THE ER. ATRIAL FIBRILLATION - SUPPORTIVE CARE ONLY AT THIS TIME. HYPOTENSION - WILL GIVE A BOLUS TONIGHT IF NEEDED ADULT FAILURE TO THRIVE - DUE TO HER HEART DISEASE LEUKOCYTOSIS - SUPPORTIVE CARE HYPONATREMIA - SUPPORTIVE CARE LACTIC ACIDOSIS - DUE TO SEPSIS, BUT SHE CANNOT HAVE IV FLUID BOLUS DUE TO HER HEART FAILURE AND PULMONARY EFFUSIONS, PULMONARY EDEMA. HX RENAL CELL CARCINOMA Admission Diagnosis ACUTE RESPIRATORY FAILURE SEPSIS PNEUMONIA NSTEMI PULMONARY EFFUSION ATRIAL FIBRILLATION HYPOTENSION ADULT FAILURE TO THRIVE LEUKOCYTOSIS HYPONATREMIA LACTIC ACIDOSIS HX RENAL CELL CARCINOMA Admission Status: Inpatient Order (span 2 midnights) Reason for Inpatient Admission: INPT ADMISSION FOR HEART FAILURE, PULMONARY EFFUSIONS, WILL NEED AT LEAST 72 HOURS Clinical Quality Measures DVT/VTE Risk/Contraindication: Risk Factor Score Per Nursin RFS Level Per Nursing on Admit: 4+=Very High JUNIOR BAHENA MD Jan 07, 2019 20:56
[2019-01-07] MEDS: APIXABAN 2.5 MG (ELIQUIS) TABLET PO SCH (22:24)
[2019-01-08] VITALS (9 sets, daily range): BP systolic 76–127; BP diastolic 40–67
[2019-01-08] MEDS: CATHETER FLUSH 10 ML SYR IV SCH ×3 (03:00→22:05)
[2019-01-08 03:58] LABS: BASOPHILS % (AUTO) 0 % (0-10); EOSINOPHILS % (AUTO) 0 % (0-10); HEMATOCRIT 35 % (35-52); HEMOGLOBIN 11.7 G/DL (11.5-16.0); LYMPHOCYTES # (AUTO) 0.5 X 10^3 (1.0-4.0); LYMPHOCYTES % (AUTO) 6 % (12-44); MEAN CORPUSCULAR HEMOGLOBIN 30 PG (25-34); MEAN CORPUSCULAR HGB CONC 33 G/DL (32-36); MEAN CORPUSCULAR VOLUME 91 FL (80-99); MEAN PLATELET VOLUME 9.7 FL (7.4-10.4); MONOCYTES # (AUTO) 0.3 X 10^3 (0.0-1.0); MONOCYTES % (AUTO) 4 % (0-12); NEUTROPHILS # (AUTO) 8.2 X 10^3 (1.8-7.8); NEUTROPHILS % (AUTO) 91 % (42-75); PLATELET COUNT 307 10^3/uL (130-400); RED CELL DISTRIBUTION WIDTH 14.7 % (10.0-14.5); WHITE BLOOD COUNT 9.1 10^3/uL (4.3-11.0)
[2019-01-08 04:17] LABS: BUN/CREATININE RATIO 21; CALCIUM 7.9 MG/DL (8.5-10.1); CARBON DIOXIDE 20 MMOL/L (21-32); CHLORIDE 97 MMOL/L (98-107); CREATININE SERUM 0.87 MG/DL (0.60-1.30); GFR ESTIMATED > 60; GLUCOSE 162 MG/DL (70-105); MAGNESIUM 1.7 MG/DL (1.8-2.4); PHOSPHORUS 4.7 MG/DL (2.3-4.7); POTASSIUM 4.2 MMOL/L (3.6-5.0); SODIUM 131 MMOL/L (135-145)
--- NOTE | 2019-01-08 06:06 | Pulmonary Progress Note ---
Sepsis Event Evaluation Height, Weight, BMI Height: 5'1.00" Weight: 118lbs. 5.0oz. 53.785839cr; 22.4 BMI Method:Stated Focused Exam Lactate Level 01/07/19 07:38: Lactic Acid Level 2.61*H 01/07/19 09:40: Lactic Acid Level 3.13*H Exam Exam Vital Signs Date Time Temp Pulse Resp B/P (MAP) Pulse Ox O2 Delivery O2 Flow Rate FiO2 01/08/19 05:00 93 27 108/54 (72) 100 Vapotherm 65.00 30.00 01/08/19 04:00 100 Vapotherm 30.00 65 01/08/19 04:00 109 8 94/63 (73) 100 Vapotherm 65.00 30.00 01/08/19 03:00 100 12 127/67 (87) 100 Vapotherm 65.00 30.00 01/08/19 02:00 90 14 83/45 (58) 100 Vapotherm 65.00 30.00 01/08/19 01:00 86 14 76/44 (55) 100 Vapotherm 65.00 30.00 01/08/19 01:00 86 01/08/19 01:00 80/40 (53) 01/08/19 00:00 96 Vapotherm 30.00 65 01/08/19 00:00 102 12 126/58 (80) 100 Vapotherm 65.00 30.00 01/07/19 23:00 108 9 123/72 (89) 100 Vapotherm 65.00 30.00 01/07/19 22:00 106 11 106/71 (83) 100 Vapotherm 65.00 30.00 01/07/19 21:00 116 16 112/77 (89) 93 Vapotherm 65.00 30.00 01/07/19 20:30 100 65.00 30.00 01/07/19 20:00 96 Vapotherm 30.00 65 01/07/19 20:00 82 15 87/42 (57) 100 Vapotherm 100.00 40.00 01/07/19 19:32 97.1 80 14 118/80 (93) 100 Vapotherm 100.00 40.00 01/07/19 19:00 92 11 118/80 (93) 100 NIV Bilevel 50.00 01/07/19 19:00 86 01/07/19 18:06 100 Vapotherm 40.00 100 01/07/19 18:00 86 16 112/70 (84) 100 NIV Bilevel 50.00 01/07/19 17:00 87 16 122/52 (75) 100 NIV Bilevel 50.00 01/07/19 16:39 107 16 100 50.00 01/07/19 16:00 87 25 89/49 (62) 100 NIV Bilevel 50.00 01/07/19 15:32 96 NIV Bilevel 50.00 01/07/19 15:22 97.4 01/07/19 15:00 92 15 111/68 (82) 100 NIV Bilevel 50.00 01/07/19 14:00 87 10 111/68 (82) 100 NIV Bilevel 50.00 01/07/19 12:45 135 34 158/132 (141) 99 NIV Bilevel 50.00 01/07/19 12:37 151 01/07/19 12:34 123 22 96 50.00 01/07/19 12:30 97.7 01/07/19 12:30 97 NIV Bilevel 50 01/07/19 12:29 92 14 116/61 (79) 100 NIV CPAP 01/07/19 07:52 111 24 96 50.00 01/07/19 07:34 95.8 103 24 122/80 (94) 100 NIV/Bilevel I & O 01/08/19 07:00 Intake Total 240 ml Output Total 1475 ml Balance -1235 ml Height & Weight Height: 5'1.00" Weight: 118lbs. 5.0oz. 53.470674gw; 22.4 BMI Method:Stated General Appearance: Anxious, Chronically ill, Severe Distress, Thin HEENT: PERRL/EOMI, Pharynx Normal Neck: Full Range of Motion, Non Tender, Supple Respiratory: Chest Non Tender, Accessory Muscle Use, Crackles, Decreased Breath Sounds, Respiratory Distress Cardiovascular: No Murmur, Tachycardia Capillary Refill: Less Than 3 Seconds Gastrointestinal: normal bowel sounds, non tender, soft Extremity: Pedal Edema (3-4+ PITTING EDEMA BILATERAL LOWER EXTREMITIES AND UPPER EXTREMITIES 2+) Neurologic/Psychiatric: Alert Skin: Normal Color, Warm/Dry Lymphatic: No Adenopathy Results Lab Laboratory Tests 01/07/19 07:38 01/08/19 03:10 Assessment/Plan Assessment/Plan Acute on chronic respiratory failure -Vapotherm currently -SVNS -Continue Solumedrol for now Pneumonia -Continue Zosyn Pulmonary edema CHFAE -Echocardiogram done 12/11/18 revealed EF 55-65% Left atrial dilatation 4.2cm, MVP with mod MR, mod-sev TR PA 50-55mmHg, continue to monitor Pulmonary HTN - Group II and group III -Oxygen -Monitor NSTEMI -Cardiology consulted -Troponin Afib RVR Metabolic lactic acidosis -Monitor -gentle hydration secondary to pulmonary status Hx of left nephrectomy Overall prognosis is guarded to poor. Pt is a DNR. I discussed with family extensively regarding pt's current condition and prognosis. They would like to wait until daughter gets her to change patient to comfort care only. ZOILA LOZADA DO Jan 08, 2019 06:06
[2019-01-08] MEDS: methylPREDNISolone 40 MG/ML (Solu-MEDROL) VIAL IV SCH ×3 (06:39→19:28)
[2019-01-08] MEDS: RT-ALBUTEROL/IPRATROPIUM 3 ML (DUONEB) VIAL IH SCH ×2 (07:01→10:24)
--- NOTE | 2019-01-08 08:05 | Progress Note (SOAP) ---
Subjective Date Seen by a Provider: Jan 08, 2019 Time Seen by a Provider: 08:00 Subjective/Events-last exam PT REPORTS THAT SHE IS FATIGUED, BUT SHE FEELS LIKE SHE IS BREATHING EASIER THAN ON ADMISSION. SHE DENIES ABDOMINAL PAIN, NAUSEA. Review of Systems General: No Chills; Fatigue, Malaise HEENT: No Head Aches Pulmonary: Dyspnea, Cough Cardiovascular: No: Chest Pain, Edema Gastrointestinal: No: Nausea, Abdominal Pain Genitourinary: No Dysuria Neurological: Weakness, Confusion Focused Exam Lactate Level 01/07/19 07:38: Lactic Acid Level 2.61*H 01/07/19 09:40: Lactic Acid Level 3.13*H Objective Exam Vital Signs Date Time Temp Pulse Resp B/P (MAP) Pulse Ox O2 Delivery O2 Flow Rate FiO2 01/08/19 07:58 100 Vapotherm 5.00 35 01/08/19 07:04 97 Vapotherm 30.00 70 01/08/19 07:00 96.7 01/08/19 06:00 84 13 122/62 (82) 100 Vapotherm 65.00 30.00 01/08/19 05:00 93 27 108/54 (72) 100 Vapotherm 65.00 30.00 01/08/19 04:00 100 Vapotherm 30.00 65 01/08/19 04:00 109 8 94/63 (73) 100 Vapotherm 65.00 30.00 01/08/19 03:00 100 12 127/67 (87) 100 Vapotherm 65.00 30.00 01/08/19 02:00 90 14 83/45 (58) 100 Vapotherm 65.00 30.00 01/08/19 01:00 86 14 76/44 (55) 100 Vapotherm 65.00 30.00 01/08/19 01:00 86 01/08/19 01:00 80/40 (53) 01/08/19 00:00 96 Vapotherm 30.00 65 01/08/19 00:00 102 12 126/58 (80) 100 Vapotherm 65.00 30.00 01/07/19 23:00 108 9 123/72 (89) 100 Vapotherm 65.00 30.00 01/07/19 22:00 106 11 106/71 (83) 100 Vapotherm 65.00 30.00 01/07/19 21:00 116 16 112/77 (89) 93 Vapotherm 65.00 30.00 01/07/19 20:30 100 65.00 30.00 01/07/19 20:00 96 Vapotherm 30.00 65 01/07/19 20:00 82 15 87/42 (57) 100 Vapotherm 100.00 40.00 01/07/19 19:32 97.1 80 14 118/80 (93) 100 Vapotherm 100.00 40.00 01/07/19 19:00 92 11 118/80 (93) 100 NIV Bilevel 50.00 01/07/19 19:00 86 01/07/19 18:06 100 Vapotherm 40.00 100 01/07/19 18:00 86 16 112/70 (84) 100 NIV Bilevel 50.00 01/07/19 17:00 87 16 122/52 (75) 100 NIV Bilevel 50.00 01/07/19 16:39 107 16 100 50.00 01/07/19 16:00 87 25 89/49 (62) 100 NIV Bilevel 50.00 01/07/19 15:32 96 NIV Bilevel 50.00 01/07/19 15:22 97.4 01/07/19 15:00 92 15 111/68 (82) 100 NIV Bilevel 50.00 01/07/19 14:00 87 10 111/68 (82) 100 NIV Bilevel 50.00 01/07/19 12:45 135 34 158/132 (141) 99 NIV Bilevel 50.00 01/07/19 12:37 151 01/07/19 12:34 123 22 96 50.00 01/07/19 12:30 97.7 01/07/19 12:30 97 NIV Bilevel 50 01/07/19 12:29 92 14 116/61 (79) 100 NIV CPAP I & O 01/08/19 07:00 Intake Total 360 ml Output Total 1525 ml Balance -1165 ml Capillary Refill : Less Than 3 SecondsLess Than 3 Seconds General Appearance: Moderate Distress, Thin Neck: Full Range of Motion, Supple Respiratory: Chest Non Tender, Crackles, Decreased Breath Sounds Cardiovascular: Irregularly Irregular Gastrointestinal: normal bowel sounds, non tender, soft, no organomegaly, no pulsatile mass Extremity: Non Tender, No Calf Tenderness, Pedal Edema Neurologic/Psychiatric: Alert, Oriented x3, No Motor/Sensory Deficits, Normal Mood/Affect Skin: Normal Color, Warm/Dry Lymphatic: No Adenopathy Results Lab Laboratory Tests 01/07/19 09:00: Urine Color YELLOW, Urine Clarity CLEAR, Urine pH 6.5, Urine Specific [place] 1.010L, Urine Protein NEGATIVE, Urine Glucose (UA) NEGATIVE, Urine Ketones NEGATIVE, Urine Nitrite NEGATIVE, Urine Bilirubin NEGATIVE, Urine Urobilinogen 4H, Urine Leukocyte Esterase NEGATIVE, Urine RBC (Auto) NEGATIVE, Urine RBC RARE, Urine WBC NONE, Urine Crystals NONE, Urine Bacteria NEGATIVE, Urine Casts NONE, Urine Mucus NEGATIVE, Urine Culture Indicated NO 01/07/19 09:40: Lactic Acid Level 3.13*H 01/07/19 13:55: Troponin I 0.658*H 01/08/19 03:10: White Blood Count 9.1, Red Blood Count 3.91L, Hemoglobin 11.7, Hematocrit 35, Mean Corpuscular Volume 91, Mean Corpuscular Hemoglobin 30, Mean Corpuscular Hemoglobin Concent 33, Red Cell Distribution Width 14.7H, Platelet Count 307, Mean Platelet Volume 9.7, Neutrophils (%) (Auto) 91H, Lymphocytes (%) (Auto) 6L, Monocytes (%) (Auto) 4, Eosinophils (%) (Auto) 0, Basophils (%) (Auto) 0, Neutrophils # (Auto) 8.2H, Lymphocytes # (Auto) 0.5L, Monocytes # (Auto) 0.3, Eosinophils # (Auto) 0.0, Basophils # (Auto) 0.0, Sodium Level 131L, Potassium Level 4.2, Chloride Level 97L, Carbon Dioxide Level 20L, Anion Gap 14, Blood Urea Nitrogen 18, Creatinine 0.87, Estimat Glomerular Filtration Rate > 60, BUN/Creatinine Ratio 21, Glucose Level 162H, Calcium Level 7.9L, Phosphorus Level 4.7, Magnesium Level 1.7L Assessment/Plan Assessment/Plan Assess & Plan/Chief Complaint ACUTE RESPIRATORY FAILURE SEPSIS PNEUMONIA NSTEMI PULMONARY EFFUSION ATRIAL FIBRILLATION HYPOTENSION ADULT FAILURE TO THRIVE LEUKOCYTOSIS HYPONATREMIA LACTIC ACIDOSIS HX RENAL CELL CARCINOMA ACUTE RESPIRATORY FAILURE WITH SEPSIS DUE TO PNEUMONIA - PT IS CURRENTLY ON ANTIBIOTICS - DR. LOZADA AND I HAVE BOTH DISCUSSED WITH THE PT'S SON AND DTR ABOUT COMFORT CARE IN THE HOSPITAL. THEY ARE WANTING TO CONSIDER COMFORT CARE, PT IS NOT SURE WHAT SHE WANTS TO DO AT THIS TIME. WE WILL TAKE HER DOWN FROM ICU TO 4TH FLOOR NSTEMI - SUPPORTIVE CARE ONLY AT THIS TIME - DEFER TO CARDIOLOGY PULMONARY EFFUSION - LASIX GIVEN IN THE ER. ATRIAL FIBRILLATION - RESTART DIGOXIN - SUPPORTIVE CARE ONLY AT THIS TIME. HYPOTENSION - ANTICIPATE WORSENING. ADULT FAILURE TO THRIVE - DUE TO HER HEART DISEASE LEUKOCYTOSIS - SUPPORTIVE CARE HYPONATREMIA - SUPPORTIVE CARE LACTIC ACIDOSIS - DUE TO SEPSIS, BUT SHE CANNOT HAVE IV FLUID BOLUS DUE TO HER HEART FAILURE AND PULMONARY EFFUSIONS, PULMONARY EDEMA. HX RENAL CELL CARCINOMA Clinical Quality Measures Admission Status Admission Dx ACUTE RESPIRATORY FAILURE SEPSIS PNEUMONIA NSTEMI PULMONARY EFFUSION ATRIAL FIBRILLATION HYPOTENSION ADULT FAILURE TO THRIVE LEUKOCYTOSIS HYPONATREMIA LACTIC ACIDOSIS HX RENAL CELL CARCINOMA DVT/VTE Risk/Contraindication: Risk Factor Score Per Nursin RFS Level Per Nursing on Admit: 4+=Very High JUNIOR SELLERS MD Jan 08, 2019 08:05
[2019-01-08] MEDS: PIPERACILLIN/TAZO 4.5 GM/NS 100 ML IV SCH ×2 (08:40)
[2019-01-08] MEDS: APIXABAN 2.5 MG (ELIQUIS) TABLET PO SCH (08:40)
--- NOTE | 2019-01-08 08:43 | Diagnostic Imaging Report ---
PATIENT HISTORY: Dyspnea. TECHNIQUE: Single frontal view of the chest. COMPARISON: 01/07/2019 FINDINGS: There are small bilateral pleural effusions which appear stable. There are airspace opacities throughout the lungs bilaterally, as well as diffuse interstitial opacities. There is cardiomegaly which appears stable. No pneumothorax is seen. No acute osseous abnormality seen. IMPRESSION: Small bilateral pleural effusions, cardiomegaly, and bilateral pulmonary opacities appear unchanged compared to the prior exam. Dictated by: Dictated on workstation # [id number]
--- NOTE | 2019-01-08 08:50 | NUR ---
Dr. Bahena in to see pt this AM. Recieved verbal order to stop Precedex and remove pt from monitors. Pt to be transferred to 4th floor after grandson arrives this afternoon.
[2019-01-08] MEDS ORDERED: SUCRALFATE 1 GM (CARAFATE) TAB PO PRN (09:30)
[2019-01-08] MEDS ORDERED: DIGOXIN 0.125 MG (LANOXIN) TAB PO SCH (09:30)
[2019-01-08] MEDS ORDERED: LORazepam 0.5 MG (ATIVAN) TABLET PO PRN (09:30)
--- NOTE | 2019-01-08 13:15 | NUR ---
pt transferred to room 421 via bed w/ staff/personal belongings. bedside report given to mariana hamm, no questions/concerns voiced.
--- NOTE | 2019-01-08 13:20 | NUR ---
PT ARRIVED TO ROOM. REPORT RECEIVED FROM RYAN GATES. THIS RN TO RESUME CARE. THIS RN AGREES TO PREVIOUS NURSES ASSESSMENT.
[2019-01-08] MEDS: LORazepam 0.5 MG (ATIVAN) TABLET PO SCH (20:16)
[2019-01-09] MEDS: CATHETER FLUSH 10 ML SYR IV SCH ×3 (06:06→20:13)
[2019-01-09] MEDS: methylPREDNISolone 40 MG/ML (Solu-MEDROL) VIAL IV SCH ×2 (06:06)
--- NOTE | 2019-01-09 06:59 | NUR ---
lab reported a positive mrsa swab.. reported to dr brown
--- NOTE | 2019-01-09 07:56 | Pulmonary Progress Note ---
Sepsis Event Evaluation Height, Weight, BMI Height: 5'1.00" Weight: 119lbs. 1.0oz. 54.947546bh; 22.4 BMI Method:Stated Focused Exam Lactate Level 01/07/19 07:38: Lactic Acid Level 2.61*H 01/07/19 09:40: Lactic Acid Level 3.13*H Exam Exam Vital Signs Date Time Temp Pulse Resp B/P (MAP) Pulse Ox O2 Delivery O2 Flow Rate FiO2 01/09/19 02:42 Vapotherm 30.00 70 01/08/19 20:00 98 Vapotherm 30.00 01/08/19 19:35 98 Vapotherm 30.00 70 01/08/19 11:44 100 Vapotherm 30.00 65 01/08/19 10:29 98 Vapotherm 30.00 70 01/08/19 08:00 98 29 106/58 (74) 90 Vapotherm 65.00 30.00 01/08/19 07:58 100 Vapotherm 30.00 65 I & O 01/09/19 07:00 Intake Total 270 ml Output Total 510 ml Balance -240 ml Height & Weight Height: 5'1.00" Weight: 119lbs. 1.0oz. 54.228103gm; 22.4 BMI Method:Stated General Appearance: Moderate Distress, Thin HEENT: PERRL/EOMI, Pharynx Normal Neck: Full Range of Motion, Supple Respiratory: Chest Non Tender, Crackles, Decreased Breath Sounds Cardiovascular: Irregularly Irregular Capillary Refill: Less Than 3 Seconds Gastrointestinal: normal bowel sounds, non tender, soft, no organomegaly, no pulsatile mass Extremity: Non Tender, No Calf Tenderness, Pedal Edema Neurologic/Psychiatric: Alert, Oriented x3, No Motor/Sensory Deficits, Normal Mood/Affect Skin: Normal Color, Warm/Dry Lymphatic: No Adenopathy Results Lab Laboratory Tests 01/08/19 03:10 Assessment/Plan Assessment/Plan Acute on chronic respiratory failure -Vapotherm currently -SVNS -Continue Solumedrol for now Pneumonia -Continue Zosyn Pulmonary edema CHFAE -Echocardiogram done 12/11/18 revealed EF 55-65% Left atrial dilatation 4.2cm, MVP with mod MR, mod-sev TR PA 50-55mmHg, continue to monitor Pulmonary HTN - Group II and group III -Oxygen -Monitor NSTEMI -Cardiology consulted -Troponin Afib RVR Metabolic lactic acidosis -Monitor -gentle hydration secondary to pulmonary status Hx of left nephrectomy Overall prognosis is guarded to poor. Pt is a DNR. ZOILA LOZADA DO Jan 09, 2019 07:56
--- NOTE | 2019-01-09 08:46 | Progress Note ---
Subjective Date Seen by a Provider: Jan 09, 2019 Time Seen by a Provider: 09:00 Subjective/Events-last exam PT REPORTS THAT SHE IS FEELING BETTER TODAY WHEN COMPARED TO YESTERDAY -SHE DENIES CHEST PAIN, ABDOMINAL PAIN, NAUSEA, SHE CONTINUES TO COMPLAIN OF SWELLING OF HER LEGS. HER DAUGHTER REPORTS THAT THEY ARE READY TO PURSUE COMFORT CARE. Review of Systems General: No Chills; Fatigue, Malaise Pulmonary: Dyspnea; No Cough Cardiovascular: Palpitations, Edema; No: Chest Pain Gastrointestinal: No: Nausea Neurological: Weakness; No: Confusion Focused Exam Lactate Level 01/07/19 07:38: Lactic Acid Level 2.61*H 01/07/19 09:40: Lactic Acid Level 3.13*H Objective Exam Last Set of Vital Signs Vital Signs Date Time Temp Pulse Resp B/P (MAP) Pulse Ox O2 Delivery O2 Flow Rate FiO2 01/09/19 02:42 Vapotherm 30.00 70 01/08/19 20:00 98 01/08/19 08:00 98 29 106/58 (74) 01/08/19 07:00 96.7 Capillary Refill : Less Than 3 SecondsLess Than 3 Seconds I&O Intake and Output 01/09/19 00:00 Intake Total 340 ml Output Total 510 ml Balance -170 ml Intake Oral 220 ml IV Total 120 ml Output Urine Total 510 ml General: Alert, Oriented X3, Cooperative, Mild Distress HEENT: Atraumatic Neck: Supple Lungs: Other (CRACKLES IN BASES, DECREASED THROUGHOUT) Heart: Other (IRREGULARLY IRREGULAR WITH SOPHIE) Abdomen: Normal Bowel Sounds, Soft Extremities: Other (+EDEMA BILATERAL LOWER EXTREMITIES) Psych/Mental Status: Mental Status NL, Mood NL Results Lab Microbiology 01/07/19 Blood Culture - Preliminary, Resulted No growth 01/07/19 MRSA Screen - Final, Complete 01/07/19 Urine Culture - Final, Complete NO GROWTH Assessment/Plan Assessment/Plan Assess & Plan/Chief Complaint ACUTE RESPIRATORY FAILURE SEPSIS PNEUMONIA NSTEMI PULMONARY EFFUSION ATRIAL FIBRILLATION HYPOTENSION ADULT FAILURE TO THRIVE LEUKOCYTOSIS HYPONATREMIA LACTIC ACIDOSIS HX RENAL CELL CARCINOMA ACUTE RESPIRATORY FAILURE WITH SEPSIS DUE TO PNEUMONIA - ANTIBIOTICS STOPPED DUE TO PLANS TO START ON COMFORT CARE. STOP VAPOTHERM AND CHANGE TO NASAL CANNULA PULMONARY EFFUSION - CHRONIC ATRIAL FIBRILLATION - STOP DIGOXIN HYPOTENSION - ANTICIPATE WORSENING. ADULT FAILURE TO THRIVE - DUE TO HER HEART DISEASE PT TO BE CHANGED TO FULL COMFORT CARE. Clinical Quality Measures Admission Status Admission Dx ACUTE RESPIRATORY FAILURE SEPSIS PNEUMONIA NSTEMI PULMONARY EFFUSION ATRIAL FIBRILLATION HYPOTENSION ADULT FAILURE TO THRIVE LEUKOCYTOSIS HYPONATREMIA LACTIC ACIDOSIS HX RENAL CELL CARCINOMA DVT/VTE Risk/Contraindication: Risk Factor Score Per Nursin RFS Level Per Nursing on Admit: 4+=Very High JUNIOR SELLERS MD Jan 09, 2019 08:46
[2019-01-09] MEDS: morphine INJ 4 MG/ML 1 ML (VIAL/SYRINGE) IVP PRN ×3 (09:39→20:14)
--- NOTE | 2019-01-09 13:10 | NUR ---
Family core drill operator helper contacted me, he is seeing pt regularly.
--- NOTE | 2019-01-09 14:23 | NUR ---
CM/SS. Patient was admitted to [facility] Medicare skilled status December 27, 2018. Wafer Fabricator reviewed EMR which reflects discussions about moving toward [facility]. Multiple family members here at this time, will follow and support as appropriate for current situation and any next steps.
[2019-01-09] MEDS: LORazepam 0.5 MG (ATIVAN) TABLET PO SCH (20:13)
[2019-01-10] MEDS: CATHETER FLUSH 10 ML SYR IV SCH ×3 (06:09→22:10)
[2019-01-10] MEDS: RT-ALBUTEROL SULF 2.5 MG/3 ML PRE-MIX VIAL IH PRN (06:17)
[2019-01-10] MEDS: morphine INJ 4 MG/ML 1 ML (VIAL/SYRINGE) IVP PRN ×3 (06:34→15:34)
--- NOTE | 2019-01-10 07:35 | Pulmonary Progress Note ---
Subjective Time Seen by a Provider: 07:34 Subjective/Events-last exam Pt is comfort care only now. Sepsis Event Evaluation Height, Weight, BMI Height: 5'1.00" Weight: 119lbs. 1.0oz. 54.501266xj; 22.4 BMI Method:Stated Focused Exam Lactate Level 01/07/19 07:38: Lactic Acid Level 2.61*H 01/07/19 09:40: Lactic Acid Level 3.13*H Exam Exam Vital Signs Date Time Temp Pulse Resp B/P (MAP) Pulse Ox O2 Delivery O2 Flow Rate FiO2 01/09/19 20:00 Nasal Cannula 4.00 01/09/19 20:00 98 Nasal Cannula 4.00 01/09/19 09:55 Nasal Cannula 4.00 I & O 01/10/19 07:00 Intake Total 385 ml Output Total 300 ml Balance 85 ml Height & Weight Height: 5'1.00" Weight: 119lbs. 1.0oz. 54.052482xy; 22.4 BMI Method:Stated General Appearance: Moderate Distress, Thin HEENT: PERRL/EOMI, Pharynx Normal Neck: Full Range of Motion, Supple Respiratory: Chest Non Tender, Crackles, Decreased Breath Sounds Cardiovascular: Irregularly Irregular Capillary Refill: Less Than 3 Seconds Gastrointestinal: normal bowel sounds, non tender, soft, no organomegaly, no pulsatile mass Extremity: Non Tender, No Calf Tenderness, Pedal Edema Neurologic/Psychiatric: Alert, Oriented x3, No Motor/Sensory Deficits, Normal Mood/Affect Skin: Normal Color, Warm/Dry Lymphatic: No Adenopathy Assessment/Plan Assessment/Plan Acute on chronic respiratory failure -Regular NC Pneumonia Pulmonary edema CHFAE Pulmonary HTN - Group II and group III NSTEMI Afib RVR Metabolic lactic acidosis Hx of left nephrectomy Pt is comfort care only currently. I am going to sign off. Please call with any questions. ZOILA LOZADA DO Jan 10, 2019 07:35
--- NOTE | 2019-01-10 11:33 | Progress Note-Hospitalist ---
Subjective HPI/CC On Admission Date Seen by Provider: Jan 10, 2019 Time Seen by Provider: 10:40 Subjective/Events-last exam Comfort care protocol maintain Daughter at the bedside Patient very frail and very debilitated Review of Systems Pulmonary: Dyspnea Objective Exam Vital Signs Vital Signs Date Time Temp Pulse Resp B/P (MAP) Pulse Ox O2 Delivery O2 Flow Rate FiO2 01/10/19 09:00 4.00 01/09/19 20:00 Nasal Cannula 01/09/19 20:00 98 01/09/19 02:42 70 01/08/19 08:00 98 29 106/58 (74) 01/08/19 07:00 96.7 Capillary Refill : Less Than 3 SecondsLess Than 3 Seconds General Appearance: Anxious, Chronically ill, Moderate Distress, Thin HEENT: PERRL/EOMI, Pharynx Normal Neck: Full Range of Motion, Supple Respiratory: Chest Non Tender, Crackles, Decreased Breath Sounds Cardiovascular: Irregularly Irregular Gastrointestinal: Normal Bowel Sounds, No Organomegaly, No Pulsatile Mass, Non Tender, Soft Rectal: Deferred Extremity: Non Tender, No Calf Tenderness, Pedal Edema Neurologic/Psychiatric: Alert, Oriented x3, No Motor/Sensory Deficits, Normal Mood/Affect Skin: Normal Color, Warm/Dry Lymphatic: No Adenopathy Results/Procedures Lab Patient resulted labs reviewed. Assessment/Plan Assessment and Plan Assess & Plan/Chief Complaint Assessment: End of life care Plan: Comfort Care protocol Clinical Quality Measures DVT/VTE Risk/Contraindication: Risk Factor Score Per Nursin RFS Level Per Nursing on Admit: 4+=Very High TIKA MILLS DO Jan 10, 2019 11:33
[2019-01-10] MEDS: LORazepam 0.5 MG (ATIVAN) TABLET PO SCH (20:08)
[2019-01-11] MEDS: morphine INJ 4 MG/ML 1 ML (VIAL/SYRINGE) IVP PRN ×3 (00:13→13:10)
[2019-01-11] MEDS: CATHETER FLUSH 10 ML SYR IV SCH ×2 (05:42→13:11)
--- NOTE | 2019-01-11 10:30 | Progress Note ---
Subjective Time Seen by a Provider: 10:00 Subjective/Events-last exam DUPLICATE NOTE Objective Exam Last Set of Vital Signs Vital Signs Date Time Temp Pulse Resp B/P (MAP) Pulse Ox O2 Delivery O2 Flow Rate FiO2 01/11/19 08:54 4.00 01/11/19 08:23 Nasal Cannula 01/09/19 20:00 98 01/09/19 02:42 70 01/08/19 08:00 98 29 106/58 (74) 01/08/19 07:00 96.7 Capillary Refill : Less Than 3 SecondsLess Than 3 Seconds I&O Intake and Output 01/11/19 00:00 Intake Total 455 ml Output Total 500 ml Balance -45 ml Intake Oral 455 ml Output Urine Total 500 ml General: Alert, Oriented X3, Cooperative, Mild Distress HEENT: Atraumatic Neck: Supple Lungs: Other (CRACKLES IN BASES, DECREASED THROUGHOUT) Heart: Other (IRREGULARLY IRREGULAR WITH SOPHIE) Abdomen: Normal Bowel Sounds, Soft Extremities: Other (+EDEMA BILATERAL LOWER EXTREMITIES) Psych/Mental Status: Mental Status NL, Mood NL Results Lab Microbiology 01/07/19 Blood Culture - Preliminary, Resulted No growth 01/07/19 MRSA Screen - Final, Complete 01/07/19 Urine Culture - Final, Complete NO GROWTH Assessment/Plan Assessment/Plan Assess & Plan/Chief Complaint ACUTE RESPIRATORY FAILURE SEPSIS PNEUMONIA NSTEMI PULMONARY EFFUSION ATRIAL FIBRILLATION HYPOTENSION ADULT FAILURE TO THRIVE LEUKOCYTOSIS HYPONATREMIA LACTIC ACIDOSIS HX RENAL CELL CARCINOMA Clinical Quality Measures Admission Status Admission Dx ACUTE RESPIRATORY FAILURE SEPSIS PNEUMONIA NSTEMI PULMONARY EFFUSION ATRIAL FIBRILLATION HYPOTENSION ADULT FAILURE TO THRIVE LEUKOCYTOSIS HYPONATREMIA LACTIC ACIDOSIS HX RENAL CELL CARCINOMA DVT/VTE Risk/Contraindication: Risk Factor Score Per Nursin RFS Level Per Nursing on Admit: 4+=Very High JUNIOR SELLERS MD Jan 11, 2019 10:30
--- NOTE | 2019-01-11 10:31 | Progress Note ---
Subjective Date Seen by a Provider: Jan 11, 2019 Time Seen by a Provider: 10:31 Subjective/Events-last exam PT REPORTS THAT SHE IS FEELING BETTER, LESS SHORT OF BREATH THAN ON ADMISSION. HER DAUGHTER REPORTS THAT SHE IS SEEING MORE FATIGUE TODAY THAN YESTERDAY. SHE HAS BEEN VISITING WITH HER FAMILY QUITE A BIT. HER DTR NOTES SORES ON HER MOM'S BACKSIDE THAT HAVE ENLARGED. Review of Systems General: Fatigue, Malaise, Appetite (DECREASED) HEENT: No Head Aches Pulmonary: Dyspnea; No Cough Cardiovascular: No: Chest Pain, Palpitations Gastrointestinal: No: Nausea, Abdominal Pain Genitourinary: Other (DAWKINS IN PLACE) Neurological: Weakness; No: Confusion Objective Exam Last Set of Vital Signs Vital Signs Date Time Temp Pulse Resp B/P (MAP) Pulse Ox O2 Delivery O2 Flow Rate FiO2 01/11/19 08:54 4.00 01/11/19 08:23 Nasal Cannula 01/09/19 20:00 98 01/09/19 02:42 70 01/08/19 08:00 98 29 106/58 (74) 01/08/19 07:00 96.7 Capillary Refill : Less Than 3 SecondsLess Than 3 Seconds I&O Intake and Output 01/11/19 00:00 Intake Total 455 ml Output Total 500 ml Balance -45 ml Intake Oral 455 ml Output Urine Total 500 ml General: Alert, Oriented X3, Cooperative, Mild Distress HEENT: Atraumatic Neck: Supple Lungs: Other (CRACKLES IN BASES, DECREASED THROUGHOUT) Heart: Other (IRREGULARLY IRREGULAR WITH SOPHIE) Abdomen: Normal Bowel Sounds, Soft Extremities: Other (+EDEMA BILATERAL LOWER EXTREMITIES) Psych/Mental Status: Mental Status NL, Mood NL Results Lab Microbiology 01/07/19 Blood Culture - Preliminary, Resulted No growth 01/07/19 MRSA Screen - Final, Complete 01/07/19 Urine Culture - Final, Complete NO GROWTH Assessment/Plan Assessment/Plan Assess & Plan/Chief Complaint ACUTE RESPIRATORY FAILURE SEPSIS PNEUMONIA NSTEMI PULMONARY EFFUSION ATRIAL FIBRILLATION HYPOTENSION ADULT FAILURE TO THRIVE LEUKOCYTOSIS HYPONATREMIA LACTIC ACIDOSIS HX RENAL CELL CARCINOMA ACUTE RESPIRATORY FAILURE WITH SEPSIS DUE TO PNEUMONIA - ANTIBIOTICS STOPPED BYRON IS COMFORT CARE - SHE IS ON NASAL CANNULA - WILL WEAN DOWN AMOUNT OF OXYGEN TO KEEP HER COMFORTABLE WITHOUT WORRY ABOUT HER % SATURATION OF OXYGEN PULMONARY EFFUSION - CHRONIC ATRIAL FIBRILLATION - STOP DIGOXIN HYPOTENSION - ANTICIPATE WORSENING. ADULT FAILURE TO THRIVE - DUE TO HER HEART DISEASE GIP WITH HOSPICE COMPASUS TO START 01/11/19 Clinical Quality Measures Admission Status Admission Dx ACUTE RESPIRATORY FAILURE SEPSIS PNEUMONIA NSTEMI PULMONARY EFFUSION ATRIAL FIBRILLATION HYPOTENSION ADULT FAILURE TO THRIVE LEUKOCYTOSIS HYPONATREMIA LACTIC ACIDOSIS HX RENAL CELL CARCINOMA DVT/VTE Risk/Contraindication: Risk Factor Score Per Nursin RFS Level Per Nursing on Admit: 4+=Very High JUNIOR SELLERS MD Jan 11, 2019 10:31
[2019-01-11] MEDS ORDERED: MORP100S3 PO (12:18)
[2019-01-11] MEDS ORDERED: LORA2ORA PO (12:18)
== END 2019-01-11 15:44 | disposition hospice, inpatient (51) | DRG 871 ==
LOC: EDUNIT# 07:22 → ER 07:29 → ICU 09:31 → 4TH 01-08 13:20
PROVIDERS: ADMIT Family Medicine; ATTEND Family Medicine
DX: A41.9 Sepsis, unspecified organism (principal); J96.21 Acute and chronic respiratory failure with hypoxia; J90 Pleural effusion, not elsewhere classified; E87.1 Hypo-osmolality and hyponatremia; E87.2 Acidosis; J18.9 Pneumonia, unspecified organism; I21.A1 Myocardial infarction type 2; Z66 Do not resuscitate; Z51.5 Encounter for palliative care; I50.1 Left ventricular failure, unspecified; I50.33 Acute on chronic diastolic (congestive) heart failure; I48.2 Chronic atrial fibrillation; R62.7 Adult failure to thrive; I11.0 Hypertensive heart disease with heart failure; D72.829 Elevated white blood cell count, unspecified; I27.22 Pulmonary hypertension due to left heart disease; I27.23 Pulmonary hypertension due to lung diseases and hypoxia; I08.1 Rheumatic disorders of both mitral and tricuspid valves; I25.10 Atherosclerotic heart disease of native coronary artery without angina pectoris; E78.00 Pure hypercholesterolemia, unspecified; G62.9 Polyneuropathy, unspecified; K21.9 Gastro-esophageal reflux disease without esophagitis; M81.0 Age-related osteoporosis without current pathological fracture; E03.9 Hypothyroidism, unspecified; F41.9 Anxiety disorder, unspecified; F32.9 Major depressive disorder, single episode, unspecified; I65.29 Occlusion and stenosis of unspecified carotid artery; Z90.5 Acquired absence of kidney; Z85.828 Personal history of other malignant neoplasm of skin
CPT/HCPCS: 36415; 51702; 71045; 80048; 80053; 80162; 81000; 82805; 83605; 83735; 83880; 84100; 84439; 84443; 84484; 85025; 85610; 85730; 86141; 87040; 87081; 87088; 93005; 93041; 94640; 94660; 94760; 99291

== ENCOUNTER 2019-01-11 15:43 | Inpatient (IN) | payer MEDICARE ==
[~2019-01-11] VITALS: Ht 154.9 cm; Wt 54.0 kg
[~2019-01-11 15:43] MED LIST changes: +DILT60CA PO; +DULO20CA18 PO; +IPRA3AMP31 NEB; +LORA2ORA PO; +MAGN500C15 PO; +MORP100S3 PO; +POTA-51 PO; +SALI45SP BC
[2019-01-11] MEDS ORDERED: ONDANSETRON 4 MG/2 ML (SDV) Z0FRAN IV PRN (16:00)
[2019-01-11] MEDS ORDERED: SUCRALFATE 1 GM (CARAFATE) TAB PO PRN (16:00)
[2019-01-11] MEDS ORDERED: LORazepam 0.5 MG (ATIVAN) TABLET PO PRN (16:00)
[2019-01-11] MEDS ORDERED: RT-ALBUTEROL SULF 2.5 MG/3 ML PRE-MIX VIAL IH PRN (16:00)
[2019-01-11] MEDS: morphine INJ 4 MG/ML 1 ML (VIAL/SYRINGE) IVP PRN (18:05)
--- NOTE | 2019-01-11 18:19 | NUR ---
Physical assessment done this am on inpatient chart.
[2019-01-11] MEDS: LORazepam 0.5 MG (ATIVAN) TABLET PO SCH (20:08)
[2019-01-11] MEDS: CATHETER FLUSH 10 ML SYR IV SCH (20:08)
[2019-01-12] MEDS: morphine INJ 4 MG/ML 1 ML (VIAL/SYRINGE) IVP PRN ×5 (05:53→22:49)
[2019-01-12] MEDS: CATHETER FLUSH 10 ML SYR IV SCH ×3 (06:01→19:56)
[2019-01-12] MEDS ORDERED: BISACODYL 10 MG SUPP (DULCOLAX) PR PRN (12:00)
[2019-01-12] MEDS ORDERED: ONDANSETRON 4 MG/2 ML (SDV) Z0FRAN IVP PRN (12:00)
[2019-01-12] MEDS ORDERED: GLYCOPYRROLATE 0.2 MG/ML (ROBINUL) 2 ML VIAL IV PRN (12:00)
[2019-01-12] MEDS ORDERED: PROMETHAZINE INJ 25 MG/ML (PHENERGAN) AMP IVP PRN (12:00)
[2019-01-12] MEDS ORDERED: RT-ALBUTEROL/IPRATROPIUM 3 ML (DUONEB) VIAL INH PRN (12:00)
[2019-01-12] MEDS ORDERED: ACETAMINOPHEN 650 MG SUPP (TYLENOL) PR PRN (12:00)
[2019-01-12] MEDS ORDERED: SALIVA STIMULANT MOUTH SPRAY (BIOTENE) 1.5 OZ MM PRN (12:00)
[2019-01-12] MEDS ORDERED: ARTIFICAL TEARS 0.4 ML UNIT DOSE (REFRESH PLUS) OU PRN (12:00)
[2019-01-12] MEDS: LORazepam 0.5 MG (ATIVAN) TABLET PO SCH (19:55)
[2019-01-13] MEDS: morphine INJ 4 MG/ML 1 ML (VIAL/SYRINGE) IVP PRN ×4 (02:38→23:10)
[2019-01-13] MEDS: CATHETER FLUSH 10 ML SYR IV SCH ×3 (05:30→22:06)
[2019-01-13] MEDS: LORazepam INJ 2 MG/ML (ATIVAN) VIAL IVP PRN (18:32)
[2019-01-13] MEDS: LORazepam 0.5 MG (ATIVAN) TABLET PO SCH (19:55)
[2019-01-14] MEDS: morphine INJ 4 MG/ML 1 ML (VIAL/SYRINGE) IVP PRN ×3 (04:04→08:19)
[2019-01-14] MEDS: CATHETER FLUSH 10 ML SYR IV SCH ×3 (04:04→22:15)
--- NOTE | 2019-01-14 08:32 | History & Physicial ---
History of Present Illness History of Present Illness Reason for visit/HPI PT IS AN 84 Y/O FEMALE WHO IS WELL KNOWN TO ME FROM CLINIC AND PREVIOUS HOSPITALIZATIONS. SHE PRESENTED TO THE HOSPITAL A RE-ADMISSION FOR HEART FAILURE, PNEUMONIA, PLEURAL EFFUSIONS. SHE WAS COUNSELED ABOUT HER ILLNESS AND THE PT AND HER FAMILY DECIDED TO PURSUE COMFORT CARE IN THE HOSPITAL. SHE WAS CHANGED TO GENERAL INPATIENT PALLIATIVE CARE WITH HOSPICE COMPASSUS IN THE HOSPITAL ON 01/11/19. Date of Admission Jan 11, 2019 at 15:44 I consulted on this patient on 01/14/19 08:29 Attending Physician Junior Bahena MD Admitting Physician Junior Bahena MD Consult Allergies and Home Medications Allergies Coded Allergies: Bacitracin Zinc (Verified Allergy, Unknown, 10/06/15) bacitracin (Verified Allergy, Unknown, 10/06/15) benzalkonium chloride (Verified Allergy, Unknown, 10/06/15) gramicidin D (Verified Allergy, Unknown, 10/06/15) hydrocortisone (Verified Allergy, Unknown, 10/06/15) lidocaine (Verified Allergy, Unknown, 10/06/15) meclizine (Verified Allergy, Unknown, 10/06/15) neomycin (Verified Allergy, Unknown, 10/06/15) neomycin sulfate (Verified Allergy, Unknown, 10/06/15) polymyxin B (Verified Allergy, Unknown, 10/06/15) polymyxin B sulfate (Verified Allergy, Unknown, 10/06/15) Home Medications Acetaminophen 325 Mg Tablet, 325-650 MG PO Q6H PRN for PAIN-MILD, (Reported) Albuterol Sulfate 90 Mcg Aer.pow.ba, 2 PUFF INH Q6H PRN for SHORTNESS OF BREATH, (Reported) Jpwyo-H-Bmqkdgltidbxd 150 Unit Tablet, 2 TAB PO AC, (Reported) Apixaban 2.5 Mg Tablet, 2.5 MG PO BID, (Reported) Brinzolamide/Brimonidine Tart 8 Ml Drops.susp, 1 DROP OS BID, (Reported) Calcium Carbonate/Vitamin D3 1 Each Tablet, 1 TAB PO BID, (Reported) Carboxymethyl/Glycerin/Poly80 10 Ml Drops, 2 DROP OU QID, (Reported) Cetirizine HCl 10 Mg Tablet, 10 MG PO HS, (Reported) Cyclobenzaprine HCl 5 Mg Tablet, 2.5 MG PO Q8H, (Reported) TAKES 1/2 (5MG) TABLET Diclofenac Sodium 100 Gm Gel..gram., 2 GM TOP QID PRN for JOINT PAIN, (Reported) APPLY TO SHOULDER AND HANDS Digoxin 125 Mcg Tablet, 125 MCG PO Q48H@1900, (Reported) HOLD FOR SBP <90 OR HR <60 Diltiazem HCl 60 Mg Cap.er.12h, 60 MG PO Q12H, (Reported) Docusate Sodium 100 Mg Capsule, 100 MG PO HS, (Reported) Duloxetine HCl 20 Mg Capsule.dr, 20 MG PO BID, (Reported) Furosemide 40 Mg Tablet, 40 MG PO DAILY, (Reported) Ipratropium/Albuterol Sulfate 3 Ml Ampul.neb, 3 ML NEB TID, (Reported) Ipratropium/Albuterol Sulfate 3 Ml Ampul.neb, 3 ML NEB Q3H PRN for SHORTNESS OF BREATH, (Reported) L.acidoph & Paracasei,B.lactis 1 Each Capsule, 1 CAP PO DAILY, (Reported) Levothyroxine Sodium 75 Mcg Tablet, 75 MCG PO DAILY, (Reported) Loperamide HCl 2 Mg Tablet, 2 MG PO UD PRN for DIARRHEA, (Reported) Lorazepam 0.5 Mg Tablet, 0.5 MG PO HS, (Reported) Lorazepam 0.5 Mg Tablet, 0.25 MG PO Q6H PRN for ANXIETY, (Reported) TAKES 1/2 (0.5MG) TABLET Lorazepam 2 Mg/1 Ml Oral.conc, 1 MG PO Q2H PRN for AGITATION Prescribed by: TIKA MILLS on 01/11/191217 Loteprednol Etabonate 5 Gm Drops.gel, 1 DROP OD BID, (Reported) Magnesium Oxide 500 Mg Capsule, 500 MG PO DAILY, (Reported) Metoprolol Succinate 100 Mg Tab.er.24h, 100 MG PO DAILY, (Reported) Morphine Sulfate 100 Mg/5 Ml Solution, 5 MG PO Q2H PRN for PAIN Prescribed by: TIKA MILLS on 01/11/191217 Pantoprazole Sodium 40 Mg Tablet.dr, 40 MG PO HS, (Reported) Polyethylene Glycol 3350 17 Gm Powd.pack, 8.5 GM PO HS, (Reported) Potassium Chloride 20 Meq Tablet.er, 20 MEQ PO DAILY, (Reported) Saliva Stimulant Agents Comb.3 1 Each Castella, 2 SPRAYS BC Q4H PRN for DRY MOUTH, (Reported) Simethicone 125 Mg Capsule, 125 MG PO TIDPC PRN for GAS, (Reported) Sodium Chloride 1 Gm Tab, 1 GM PO DAILY, (Reported) Sucralfate 1 Gm/10 Ml Oral.susp, 10 ML PO TID PRN for REFLUX, (Reported) Past Yqsnfri-Yprrvg-Fuezrx Hx Patient Social History Alcohol Use: Denies Use Recreational Drug Use: No 2nd Hand Smoke Exposure: No Physical Abuse Screen: No Sexual Abuse: No Recent Foreign Travel: No Contact w/other who traveled: No Recent Hopitalizations: No (rotator cuff surgey, 2004, 2008 [place] glaucoma) Recent Infectious Disease Expo: No Immunizations Up To Date Date of Pneumonia Vaccine: Jul 11, 2014 Date of Influenza Vaccine: Apr 09, 2015 Surgeries Yes (BOWEL RESECTION, KIDNEY REMOVAL) Abdominal, Eye Surgery, Hysterectomy, Orthopedic Respiratory Yes Currently Using CPAP: No Currently Using BIPAP: No Cardiovascular Yes (MITRAL VALVE PROLAPSE) Atrial Fibrillation, Coronary Artery Disease, High Cholesterol, Hypertension, Valvular Heart Disease Neurological Yes Neuropathy Reproductive System Hx Reproductive Disorders: No Sexually Transmitted Disease: No Genitourinary Yes (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) Gastrointestinal Yes (35" OF COLON REMOVED) Gastroesophageal Reflux Musculoskeletal Yes Osteoporosis Endocrine History of Endocrine Disorders: Yes Endocrine Disorders: Hypothyroidsim Cancer Yes Kidney Type of Treatment: Surgical Intervention Psychosocial History of Psychiatric Problem: No Behavioral Health Disorders: Sleep Difficulties, Anxiety, Depression Integumentary History of Skin or Integumenta: Yes (RAYNAUDS) Family Medical History Significant Family History: Heart Disease Physical Exam Vital Signs Vital Signs - First Documented 01/11/19 20:07 O2 Delivery Nasal Cannula O2 Flow Rate 4.00 Capillary Refill : Height, Weight, BMI Height: 5'1.00" Weight: 119lbs. 1.0oz. 54.404341of; 22.5 BMI Method:Stated Assessment/Plan Assessment and Plan ACUTE RESPIRATORY FAILURE SEPSIS PNEUMONIA NSTEMI PULMONARY EFFUSION ATRIAL FIBRILLATION HYPOTENSION ADULT FAILURE TO THRIVE LEUKOCYTOSIS HYPONATREMIA LACTIC ACIDOSIS HX RENAL CELL CARCINOMA ACUTE RESPIRATORY FAILURE WITH SEPSIS DUE TO PNEUMONIA - ANTIBIOTICS STOPPED BYRON IS COMFORT CARE - SHE IS ON NASAL CANNULA - WILL WEAN DOWN AMOUNT OF OXYGEN TO KEEP HER COMFORTABLE WITHOUT WORRY ABOUT HER % SATURATION OF OXYGEN PULMONARY EFFUSION - CHRONIC ATRIAL FIBRILLATION - STOP DIGOXIN HYPOTENSION - ANTICIPATE WORSENING. ADULT FAILURE TO THRIVE - DUE TO HER HEART DISEASE GIP WITH HOSPICE COMPASUS TO START 01/11/19 JUNIOR BAHENA MD Jan 14, 2019 08:32
[2019-01-14] MEDS ORDERED: morphine PCA 100 MG/100 ML BAG IV PRN ×2 (09:30→16:00)
[2019-01-14] MEDS: NS IV 1000 ML 1,000 ML IV SCH (10:24)
--- NOTE | 2019-01-14 13:50 | NUR ---
Pt's daughter would like her EMERGENCY MANAGEMENT COORDINATOR continuous amount to be decreased to 0.5mg/hr, she feels she is too unresponsive. Pt arouses with verbal stimuli, respirations 18/min. Pt states she is comfortable. Dr. Bahena notified.
--- NOTE | 2019-01-14 15:20 | NUR ---
Phoned Dr. Bahena's office, she is with last pt of the day and will return call soon about BOXCAR WEIGHER dosages.
[2019-01-14] MEDS: LORazepam 0.5 MG (ATIVAN) TABLET PO SCH (21:00)
[2019-01-14] MEDS: LORazepam INJ 2 MG/ML (ATIVAN) VIAL IVP PRN (22:12)
--- NOTE | 2019-01-15 01:30 | NUR ---
ASSUMED CARE OF PT AT THIS TIME. PT RESTING COMFORTABLE. WILL CONTINUE TO MONITOR.
[2019-01-15] MEDS: CATHETER FLUSH 10 ML SYR IV SCH ×2 (03:52→13:39)
[2019-01-15] MEDS: LORazepam INJ 2 MG/ML (ATIVAN) VIAL IVP PRN (07:19)
--- NOTE | 2019-01-15 08:57 | Progress Note ---
Objective Exam Last Set of Vital Signs Vital Signs Date Time Temp Pulse Resp B/P (MAP) Pulse Ox O2 Delivery O2 Flow Rate FiO2 01/15/19 06:33 10 01/14/19 20:00 Nasal Cannula 4.00 Capillary Refill : I&O Intake and Output 01/15/19 00:00 Intake Total 0 ml Output Total 450 ml Balance -450 ml Intake Oral 0 ml Output Urine Total 450 ml Clinical Quality Measures Admission Status Admission Dx ACUTE RESPIRATORY FAILURE SEPSIS PNEUMONIA NSTEMI PULMONARY EFFUSION ATRIAL FIBRILLATION HYPOTENSION ADULT FAILURE TO THRIVE LEUKOCYTOSIS HYPONATREMIA LACTIC ACIDOSIS HX RENAL CELL CARCINOMA ACUTE RESPIRATORY FAILURE WITH SEPSIS DUE TO PNEUMONIA - ANTIBIOTICS STOPPED BYRON IS COMFORT CARE - SHE IS ON NASAL CANNULA - WILL WEAN DOWN AMOUNT OF OXYGEN TO KEEP HER COMFORTABLE WITHOUT WORRY ABOUT HER % SATURATION OF OXYGEN PULMONARY EFFUSION - CHRONIC ATRIAL FIBRILLATION - STOP DIGOXIN HYPOTENSION - ANTICIPATE WORSENING. ADULT FAILURE TO THRIVE - DUE TO HER HEART DISEASE GIP WITH HOSPICE COMPASUS TO START 01/11/19 JUNIOR SELLERS MD Jan 15, 2019 08:57
--- NOTE | 2019-01-15 09:07 | NUR ---
LINDERMAN MACHINE OPERATOR DOSE CHANGED AT THIS TIME TO 1MG CONTINUOUS AND 2MG LINDERMAN MACHINE OPERATOR DOSE. KODY CUEVAS WITNESSED THIS CHANGE.
--- NOTE | 2019-01-15 09:17 | NUR ---
FLOW METER WAS TURNED OFF AND NC WAS UNHOOKED AT THIS TIME; NC WAS LEFT IN PATIENTS NARES PER DR SELLERS (DO NOT REMOVE NC FROM PATIENTS NARES)
[2019-01-15] MEDS: NS IV 1000 ML 1,000 ML IV SCH ×2 (09:30→15:03)
--- NOTE | 2019-01-15 09:48 | NUR ---
PALLIATIVE CARE RN in to see patient and talk with son and daughter regarding the dying process and patients current condition. Upon entering the room noted patient to be lying in bed with head partialy elevated to 20%. Oxygen this morning has been discontinued due to declining status with canula has been left in place for patients perception. At this time patient appears comfortable with the INOCULATOR increased this morning. I did not see mottling on the lower extremity and pulses are not palpable. Ears, on first inspection, are small and without signs that dying is immanent at this time. I will reassess for change throughout the day but feel that patient has 24 to 36 hours. Family has not needs and education in complete at this time. Family is aware that they can get ahold of me for additional questions as needed.
[2019-01-15] MEDS ORDERED: LORazepam INJ 2 MG/ML (ATIVAN) VIAL IVP PRN (10:00)
--- NOTE | 2019-01-15 11:36 | NUR ---
PALLIATIVE CARE RN asked to room by daughter. Had just turned patient 5 to 10 min previous and daughter reports that since that time she has been having apnea w recovery breathing and suggest that she did not want her to have this amount of air hunger. I explained that she was not having air hunger but rather has transitioned in the dying process as I had earlier explained. Suggested to her to continue with the observation of outward signs of discomfort and respond with LICENSE AND PERMIT SPECIALIST delivery as needed (which I delivered to the patient). Will continue to follow throughout the day for signs of decline.
--- NOTE | 2019-01-15 15:11 | NUR ---
Palliative Care RN in to see patient. She is relatively stable and continues to decline noting continued apnea and changed in her coloration to more pale. Her fluid status is also changing noting more gaunt looking around eyes and mouth. Will continue to monitor and still expect passing in the dext 24 hours.
--- NOTE | 2019-01-15 15:50 | NUR ---
THIS RN CALLED INTO ROOM TO VERIFY PATIENT'S PASSING. NO AUDIBLE HEART BEAT OR LUNG SOUNDS. THIS RN REQUESTED ANOTHER RN TO VERIFY AT THIS TIME.
--- NOTE | 2019-01-15 16:24 | NUR ---
PALLIATIVE CARE RN in to see patient after learning of her passing. Family in room and grieving but are glad that she is no longer suffering. No needs currently.
--- NOTE | 2019-01-15 17:25 | NUR ---
AUTO GARAGE MECHANIC MORPHINE WASTED 70ML WITNESSED BY KODY FOX.
== END 2019-01-15 15:50 | disposition expired | DRG 951 ==
LOC: 4TH 15:44
PROVIDERS: ADMIT Family Medicine; ATTEND Family Medicine
DX: Z51.5 Encounter for palliative care (principal); A41.9 Sepsis, unspecified organism; J18.9 Pneumonia, unspecified organism; I21.9 Acute myocardial infarction, unspecified; J96.00 Acute respiratory failure, unspecified whether with hypoxia or hypercapnia; J90 Pleural effusion, not elsewhere classified; E87.1 Hypo-osmolality and hyponatremia; E87.2 Acidosis; Z66 Do not resuscitate; I48.91 Unspecified atrial fibrillation; I25.10 Atherosclerotic heart disease of native coronary artery without angina pectoris; I95.9 Hypotension, unspecified; R62.7 Adult failure to thrive; Z85.528 Personal history of other malignant neoplasm of kidney; Z90.5 Acquired absence of kidney
CPT/HCPCS: 76937; 94760